=== PATIENT | female | born 1980 | race Caucasian/White ===

== ENCOUNTER 2020-01-13 11:46 | Inpatient (IN) | payer SELFPAY ==
[2020-01-13] VITALS (13 sets, daily range): BP systolic 105–192; BP diastolic 67–109; PULSE 63–82; RESP 16–18; TEMP 36.4–36.6; O2SAT 97–100; BMI 19.2
--- NOTE | 2020-01-13 12:04 | CT_ITS ---
WS: [id number] CT ABDOMEN AND PELVIS WITH CONTRAST HISTORY: RLQ pain TECHNIQUE: Imaging performed of the abdomen and pelvis with IV contrast. Single phase imaging of the abdomen. Coronal and sagittal reformats are submitted. All CT scans at [facility] use at least one of these dose optimization techniques: automated exposure control; mA and/or kV adjustment per patient size (includes targeted exams where dose is matched to clinical indication); or iterativ e reconstruction. IV CONTRAST: Omnipaque 300; 95 mL IV. Oral contrast: No DLP: 580.12 mGy.cm COMPARISON: 03/01/2019 Lower thorax: Lung bases are clear. Heart is normal size. No hiatal hernia. Liver/biliary system: Very slight central bile duct dilatation. No mass. Gallbladder: Prior cholecystectomy. Pancreas: Normal. Spleen: Normal. Adrenal glands: Normal. Right kidney: Normal. Left kidney: Normal. Aorta: Normal. Lymphadenopathy: None. Free fluid: None. GI tract: Mild fluid distention of the proximal small bowel loops measuring up to 3 cm. Mild fecal re tention. The appendix is partially visualized and normal. Abdominal wall: Unremarkable abdominal wall. No hernia. Pelvis: Uterus is midline. No free fluid. Urinary bladder is negative. Minimally prominent RIGHT ingu inal lymph nodes. Bones: Mild anterior wedging of T12. No osteoblastic or osteolytic bone disease. CT/CT abdomen pelvis w con* [id number] IMPRESSION: 1. Mild small bowel dilatation in the LEFT abdomen. 2. Prior cholecystectomy. 3. No evidence for appendicitis or renal obstruction.
--- NOTE | 2020-01-13 12:11 | ED_ITS ---
HPI - Abdominal Pain General: Chief Complaint: Abdominal Pain Stated Complaint: N/V, LOWER ABD PAIN Time Seen by Provider: 01/13/20 11:53 Source: patient and EMS Mode of arrival: EMS Limitations: no limitations History of Present Illness: MD elicited complaint: abdominal pain Pertinent past history: other (type 1 DM) Onset (ago): week(s) (1) Pain Consistency: constant Location: RLQ Severity: severe Quality: stabbing Radiation: none Exacerbating factors: nothing Relieving factors: nothing Associated Symptoms: Reports nausea and vomiting; Denies chills, dysuria and fever(s) Review of Systems General: Reports: 10 or more systems reviewed and unremarkable except in HPI and below Const: Denies: fever(s), chills or body aches Eyes: Denies: change in vision or blurry vision Card: Reports: chest pain; Denies: palpitations, irregular heart rhythm, edema or swelling of feet/ankles Resp: Denies: dyspnea, productive cough or non-productive cough GI: Reports: nausea and vomiting : Denies: flank pain, difficulty voiding, dysuria, urinary frequency, urinary urgency or urinary hesitancy Musc: Denies: neck pain, back pain or extremity swelling Neuro: Denies: headache(s), numbness in extremities or weakness in extremities Endo: Denies: polyuria, polydipsia or tired all the time [facility] ED PFSH: Social History Smoking and tobacco status: former smoker Physical Exam Const: COMMON NORMALS: no acute distress, average body habitus, patient oriented x3, no limitations, healthy appearing, alert and well nourished HENMT: COMMON NORMALS: normocephalic, atraumatic and moist oral mucous membranes HEAD & SCALP: normocephalic and atraumatic Eye: COMMON NORMALS: Equal, round and reactive pupils present, EOMs intact bilaterally, conjunctivae normal and no scleral icterus CONJUNCTIVA: Yes conjunctivae normal PUPIL: Yes Equal, round and reactive pupils present Neck/C-Spine: COMMON NORMALS: no meningeal signs and no JVD Resp: COMMON NORMALS: normal respiratory effort, No retractions, No use of accessory muscles, clear to auscultation bilaterally and percussion normal AUSCULTATION: clear to auscultation bilaterally PERCUSSION: percussion normal Cardio: COMMON NORMALS: no JVD, regular rate, regular rhythm, S1 normal heart sound present, S2 normal heart sound present, No gallops present (Cardio), No clicks present (Cardio), No murmurs present (Cardio), No rub (Cardio) and Peripheral pulses 2+ throughout RATE: regular rate RHYTHM: regular rhythm HEART SOUNDS: S1 normal heart sound present and S2 normal heart sound present PERIPHERAL PULSES: Peripheral pulses 2+ throughout GI: COMMON NORMALS: Normal to inspection, nondistended, normoactive bowel sounds present, Soft to palpation, No hepatosplenomegaly present, no masses and no bruits PALPATION: Yes Soft to palpation, Yes Tenderness to palpation present (GI) Details: RLQ, Yes Guarding due to palpation present (GI) and Yes No hepatosplenomegaly present : COMMON NORMALS: Yes no CVA tenderness BLADDER/KIDNEY EXAM: Yes no CVA tenderness Back/Pelvis: COMMON NORMALS: no CVA tenderness Extremity: COMMON NORMALS: normal to inspection, full ROM, capillary refill normal, no calf tenderness and no pedal edema OTHER: left BKA. ulcer right foot on the plantar surface of the first MTP Neuro: COMMON NORMALS: patient oriented x3 SENSORIUM/ORIENTATION: Yes alert MENINGEAL SIGNS: Yes no meningeal signs Skin: COMMON NORMALS: no rashes or lesions noted, no wounds, turgor normal, no jaundice, no petechiae and no mottling GENERAL SKIN EXAM: no rashes or lesions noted and turgor normal Course Consultations: Consultation #1: Dr. Suarez, hospitalist. She kindly accepted the patient to her service. Consultation #2: Dr. Sin, hris specialist. He will see the patient in the hospital. Vital Signs: Vital signs: Vital Signs Temperature 97.9 F 01/13/20 11:47 Pulse Rate 77 01/13/20 17:53 Respiratory Rate 17 01/13/20 17:53 Blood Pressure 192/109 01/13/20 17:53 Pulse Oximetry 100 01/13/20 17:53 MDM - Abdominal Pain MDM Narrative: Medical decision making narrative: 39-year-old female patient who presents to the emergency department with abdominal pain. Evaluation in the emergency department does not reveal any cause for the abdominal pain. However she is nauseous and is vomiting and has lactic acidosis. She also has a diabe tic foot ulcer which may also be contributing to her lactic acid. Her pain is intractable and she is being admitted to the hospital for further work-up and management. At this time it does not appear that she is in diabetic ketoacidosis as her anion gap is only slightly elevated and her glucose levels just mildly elevated also. But this is certainly a consideration. Medical Records: Attestation: I reviewed the patient's medical records. Lab Data: Attestation: I reviewed the patient's lab results. Labs: Lab Results 01/13/20 01/13/20 01/13/20 Range/Units 10:58 10:58 10:58 WBC 8.8 (4.0-10.0) 10^3/ uL RBC 3.86 L (4.1-5.3) 10^6/u L Hgb 11.5 (11.5-15.3) g/dL Hct 35.9 L (37.0-47.0) % MCV 93.0 (81-99) fL MCH 29.8 (28.0-34.0) pg MCHC 32.0 (30.0-36.0) g/dL RDW 14.0 (12.1-15.1) % Plt Count 526 H (130-400) 10^3/c mm MPV 8.5 (7.4-10.4) fL Neut % (Auto) 70.4 % Lymph % (Auto) 20.0 % Harlan % (Auto) 8.0 % Eos % (Auto) 0.8 % Baso % (Auto) 0.5 % Neut # (Auto) 6.2 (1.8-7.7) 10^3/u L Lymph # (Auto) 1.8 (0.8-4.8) 10^3/u L Harlan # (Auto) 0.7 (0.2-0.9) 10^3/u L Eos # (Auto) 0.1 (0.0-0.8) 10^3/u L Baso # (Auto) 0.0 (0.0-0.1) 10^3/u L Nucleated RBC % (a uto) 0 % Nucleated RBCs # 0.0 /100WBC Sodium 138 (136-145) mmol/L Potassium 3.5 (3.5-5.1) mmol/L Chloride 90 L (98-107) mmol/L Carbon Dioxide 30 H (22-29) mmol/L Anion Gap 21.5 H (5-19) BUN 29 H (6-20) mg/dL Creatinine 2.1 H (0.5-0.9) mg/dL GFR Calculation 26.0 L (90-130) mL/min Glucose 221 H (65-115) mg/dL Calculated Osmolal ity 290 (285-295) mOsm/k g Lactic Acid (Sepsi s) (0.5-2.2) mmol/L Lactate (0.5-2.2) mmol/L Calcium 10.0 (8.5-10.5) mg/dL Total Bilirubin 0.4 (0.15-1.2) mg/dL AST 13 (0-32) U/L ALT 16 (0-33) U/L Alkaline Phosphata se 153 H (35-105) IU/L Creatine Kinase 48 (26-192) U/L C-Reactive Protein 9.0 H (0.0-4.9) mg/L Total Protein 8.5 (6.6-8.7) g/dL Albumin 4.6 (3.5-5.2) g/dL Globulin 3.9 (1.3-4.6) g/dL Lipase 30 (13-60) U/L HCG, Qual (Negative) Urine Color (Yellow) Urine Appearance (CLEAR) Urine pH (5-7) Ur Specific Gravit y (1.005-1.030) Urine Protein (Negative) Urine Glucose (UA) (Normal) Urine Ketones (Negative) Urine Blood (Negative) Urine Nitrate (Negative) Urine Bilirubin (NEGATIVE) Urine Urobilinogen (Negative) mg/dL Ur Leukocyte Estephania ase (Negative) Urine Opiates Scre en (Negative) ng/mL Ur Barbiturates Sc reen (Negative) ng/mL Ur Phencyclidine S crn (Negative) ng/mL Ur Amphetamines Sc reen (Negative) ng/mL U Benzodiazepines Scrn (Negative) ng/mL Urine Cocaine Scre en (Negative) ng/mL U Marijuana (THC) Screen (Negative) ng/mL Ethyl Alcohol < 10 (0-10) mg/dL 01/13/20 01/13/20 01/13/20 Range/Units 12:17 15:36 15:36 WBC (4.0-10.0) 10^3/ uL RBC (4.1-5.3) 10^6/u L Hgb (11.5-15.3) g/dL Hct (37.0-47.0) % MCV (81-99) fL MCH (28.0-34.0) pg MCHC (30.0-36.0) g/dL RDW (12.1-15.1) % Plt Count (130-400) 10^3/c mm MPV (7.4-10.4) fL Neut % (Auto) % Lymph % (Auto) % Harlan % (Auto) % Eos % (Auto) % Baso % (Auto) % Neut # (Auto) (1.8-7.7) 10^3/u L Lymph # (Auto) (0.8-4.8) 10^3/u L Harlan # (Auto) (0.2-0.9) 10^3/u L Eos # (Auto) (0.0-0.8) 10^3/u L Baso # (Auto) (0.0-0.1) 10^3/u L Nucleated RBC % (a uto) % Nucleated RBCs # /100WBC Sodium (136-145) mmol/L Potassium (3.5-5.1) mmol/L Chloride (98-107) mmol/L Carbon Dioxide (22-29) mmol/L Anion Gap (5-19) BUN (6-20) mg/dL Creatinine (0.5-0.9) mg/dL GFR Calculation (90-130) mL/min Glucose (65-115) mg/dL Calculated Osmolal ity (285-295) mOsm/k g Lactic Acid (Sepsi s) (0.5-2.2) mmol/L Lactate 3.2 H (0.5-2.2) mmol/L Calcium (8.5-10.5) mg/dL Total Bilirubin (0.15-1.2) mg/dL AST (0-32) U/L ALT (0-33) U/L Alkaline Phosphata se (35-105) IU/L Creatine Kinase (26-192) U/L C-Reactive Protein (0.0-4.9) mg/L Total Protein (6.6-8.7) g/dL Albumin (3.5-5.2) g/dL Globulin (1.3-4.6) g/dL Lipase (13-60) U/L HCG, Qual Negative (Negative) Urine Color Yellow (Yellow) Urine Appearance Clear (CLEAR) Urine pH 7 (5-7) Ur Specific Gravit y 1.010 (1.005-1.030) Urine Protein Neg (Negative) Urine Glucose (UA) Norm (Normal) Urine Ketones Negative (Negative) Urine Blood Neg (Negative) Urine Nitrate Negative (Negative) Urine Bilirubin Neg (NEGATIVE) Urine Urobilinogen Norm (Negative) mg/dL Ur Leukocyte Estephania ase Negative (Negative) Urine Opiates Scre en (Negative) ng/mL Ur Barbiturates Sc reen (Negative) ng/mL Ur Phencyclidine S crn (Negative) ng/mL Ur Amphetamines Sc reen (Negative) ng/mL U Benzodiazepines Scrn (Negative) ng/mL Urine Cocaine Scre en (Negative) ng/mL U Marijuana (THC) Screen (Negative) ng/mL Ethyl Alcohol (0-10) mg/dL 01/13/20 01/13/20 Range/Units 15:36 15:44 WBC (4.0-10.0) 10^3/ uL RBC (4.1-5.3) 10^6/u L Hgb (11.5-15.3) g/dL Hct (37.0-47.0) % MCV (81-99) fL MCH (28.0-34.0) pg MCHC (30.0-36.0) g/dL RDW (12.1-15.1) % Plt Count (130-400) 10^3/c mm MPV (7.4-10.4) fL Neut % (Auto) % Lymph % (Auto) % Harlan % (Auto) % Eos % (Auto) % Baso % (Auto) % Neut # (Auto) (1.8-7.7) 10^3/u L Lymph # (Auto) (0.8-4.8) 10^3/u L Harlan # (Auto) (0.2-0.9) 10^3/u L Eos # (Auto) (0.0-0.8) 10^3/u L Baso # (Auto) (0.0-0.1) 10^3/u L Nucleated RBC % (a uto) % Nucleated RBCs # /100WBC Sodium (136-145) mmol/L Potassium (3.5-5.1) mmol/L Chloride (98-107) mmol/L Carbon Dioxide (22-29) mmol/L Anion Gap (5-19) BUN (6-20) mg/dL Creatinine (0.5-0.9) mg/dL GFR Calculation (90-130) mL/min Glucose (65-115) mg/dL Calculated Osmolal ity (285-295) mOsm/k g Lactic Acid (Sepsi s) 1.6 (0.5-2.2) mmol/L Lactate (0.5-2.2) mmol/L Calcium (8.5-10.5) mg/dL Total Bilirubin (0.15-1.2) mg/dL AST (0-32) U/L ALT (0-33) U/L Alkaline Phosphata se (35-105) IU/L Creatine Kinase (26-192) U/L C-Reactive Protein (0.0-4.9) mg/L Total Protein (6.6-8.7) g/dL Albumin (3.5-5.2) g/dL Globulin (1.3-4.6) g/dL Lipase (13-60) U/L HCG, Qual (Negative) Urine Color (Yellow) Urine Appearance (CLEAR) Urine pH (5-7) Ur Specific Gravit y (1.005-1.030) Urine Protein (Negative) Urine Glucose (UA) (Normal) Urine Ketones (Negative) Urine Blood (Negative) Urine Nitrate (Negative) Urine Bilirubin (NEGATIVE) Urine Urobilinogen (Negative) mg/dL Ur Leukocyte Estephania ase (Negative) Urine Opiates Scre en Positive H (Negative) ng/mL Ur Barbiturates Sc reen Negative (Negative) ng/mL Ur Phencyclidine S crn Negative (Negative) ng/mL Ur Amphetamines Sc reen Negative (Negative) ng/mL U Benzodiazepines Scrn Negative (Negative) ng/mL Urine Cocaine Scre en Negative (Negative) ng/mL U Marijuana (THC) Screen Negative (Negative) ng/mL Ethyl Alcohol (0-10) mg/dL Imaging Data ^: CT Abd/Pel: Radiologist's impression: [facility] [address] [place] [address] CT Scan Report Signed Patient: Dayan Steel #: [id number] : 1980Acct#:[id number] Age/Sex: 39 / FADM Date: 01/13/20 Loc: ERRoom/Bed: Attending Dr: Ordering Provider/Ordering MD: Nakia Rivera MD, [facility] Date of Service: 01/13/20 Procedure(s): CT abdomen pelvis w con* [id number] Accession Number(s): [id number] Report Number: [id number] WS: [id number] CT ABDOMEN AND PELVIS WITH CONTRAST HISTORY: RLQ pain TECHNIQUE: Imaging performed of the abdomen and pelvis with IV contrast. Single phase imaging of the abdomen. Coronal and sagittal reformats are submitted. All CT scans at [facility] use at least one of these dose optimization techniques: automated exposure control; mA and/or kV adjustment per patient size (includes targeted exams where dose is matched to clinical indication); or iterative reconstruction. IV CONTRAST: Omnipaque 300; 95 mL IV. Oral contrast: No DLP: 580.12 mGy.cm COMPARISON: 03/01/2019 Lower thorax: Lung bases are clear. Heart is normal size. No hiatal hernia. Liver/biliary system: Very slight central bile duct dilatation. No mass. Gallbladder: Prior cholecystectomy. Pancreas: Normal. Spleen: Normal. Adrenal glands: Normal. Right kidney: Normal. Left kidney: Normal. Aorta: Normal. Lymphadenopathy: None. Free fluid: None. GI tract: Mild fluid distention of the proximal small bowel loops measuring up to 3 cm. Mild fecal retention. The appendix is partially visualized and normal. Abdominal wall: Unremarkable abdominal wall. No hernia. Pelvis: Uterus is midline. No free fluid. Urinary bladder is negative. Minimally prominent RIGHT inguinal lymph nodes. Bones: Mild anterior wedging of T12. No osteoblastic or osteolytic bone disease. CT/CT abdomen pelvis w con* [id number] IMPRESSION: 1. Mild small bowel dilatation in the LEFT abdomen. 2. Prior cholecystectomy. 3. No evidence for appendicitis or renal obstruction. Dictated By:Ophelia Escobar DO Signed By:Ophelia Escobar DOSigned Date/Time:01/13/20 1240 Discharge Plan Discharge Patient Disposition: Admitted As Inpatient Clinical Impression: Acidosis, lactic, Intractable abdominal pain, Nausea & vomiting Condition: Stable Prescriptions: No Action gabapentin 400 mg Capsule 400 mg PO TID RF: 0 Plavix 75 mg Tablet 75 mg PO DAILY RF: 0 Aspir-81 81 mg Tablet,Delayed Release (Dr/Ec) 81 mg PO DAILY RF: 0 carvedilol 3.125 mg tablet 3.125 mg PO Q12H RF: 0 Humalog U-100 Insulin 100 unit/mL Solution See Rx Instructions .ROUTE .COMPLEX RF: 0 lisinopril 2.5 mg tablet 2.5 mg PO DAILY RF: 0 Lantus Solostar U-100 Insulin 100 unit/mL (3 mL) Insulin Pen 10 unit SUBCUT BEDTIME RF: 0 Zofran 4 mg Tablet 4 mg PO Q6H PRN (Reason: Nausea) RF: 0 Referrals: Kentrell Herring MD [Primary Care Provider] - 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 Code ED Cloth Laminating Supervisor for Chg Fwd Exam Comprehensive
[2020-01-13 12:13] LABS: Basophils % 0.5 %; Eosinophils # 0.1 10^3/uL (0.0-0.8); Eosinophils % 0.8 %; Hematocrit 35.9 % (37.0-47.0); Hemoglobin 11.5 g/dL (11.5-15.3); Lymphocytes # 1.8 10^3/uL (0.8-4.8); Mean Corpuscular Hemoglobin 29.8 pg (28.0-34.0); Mean Platelet Volume 8.5 fL (7.4-10.4); Monocytes # 0.7 10^3/uL (0.2-0.9); Neutrophils # 6.2 10^3/uL (1.8-7.7); Neutrophils % 70.4 %; Nucleated Red Blood Cells % 0 %; Platelet Count 526 10^3/cmm (130-400); Red Blood Count 3.86 10^6/uL (4.1-5.3); White Blood Count 8.8 10^3/uL (4.0-10.0)
[2020-01-13] MEDS: fentaNYL 50 mcg/mL INJ 2mL IVP ×4 (12:14→18:49)
[2020-01-13] MEDS: iohexol 300 mg/mL 100 mL Btl IV (12:25)
[2020-01-13 12:33] LABS: Alanine Aminotransferase 16 U/L (0-33); Albumin Level 4.6 g/dL (3.5-5.2); Alkaline Phosphatase 153 IU/L (35-105); Anion Gap 21.5 (5-19); Aspartate Amino Transferase 13 U/L (0-32); Blood Urea Nitrogen 29 mg/dL (6-20); Carbon Dioxide 30 mmol/L (22-29); Chloride 90 mmol/L (98-107); Creatine Phosphokinase 48 U/L (26-192); Globulin 3.9 g/dL (1.3-4.6); Glucose 221 mg/dL (65-115); Lipase 30 U/L (13-60); Osmolality Calculated 290 mOsm/kg (285-295); Potassium 3.5 mmol/L (3.5-5.1); Sodium 138 mmol/L (136-145); Total Bilirubin 0.4 mg/dL (0.15-1.2); Total Protein 8.5 g/dL (6.6-8.7)
[2020-01-13 12:36] LABS: Lactate (Lactic Acid level) 3.2 mmol/L (0.5-2.2)
[2020-01-13] MEDS: sodium chloride 0.9% 1,000 ML 999 ML IV ×2 (14:11→16:57)
[2020-01-13] MEDS: metoclopramide 5 mg/mL SDV 2 mL 10 MG IVP (14:31)
[2020-01-13 14:36] LABS: Alcohol Level < 10 mg/dL (0-10)
[2020-01-13 15:40] LABS: Add Urine Microscopic? NO
[2020-01-13 15:47] LABS: Blood Urine Neg (Negative); Glucose Urine UA Norm (Normal); HCG Qualitative Urine. Negative (Negative); Ketones Urine Negative (Negative); Protein Urine Neg (Negative); Urine Appearance Clear (CLEAR); Urine Color Yellow (Yellow); pH Urine 7 (5-7)
[2020-01-13 15:48] LABS: Bilirubin Urine Neg (NEGATIVE); Leukocyte Esterase Urine Negative (Negative); Nitrate Urine Negative (Negative); Urobilinogen Urine Norm (Negative)
[2020-01-13 15:55] LABS: Amphetamines Screen Urine Negative (Negative); Barbiturates Screen Urine Negative (Negative); Benzodiazepines Screen Urine Negative (Negative); Cocaine Screen Urine Negative (Negative); Opiate Screen Urine Positive (Negative); PCP Screen Urine Negative (Negative); THC Screen Urine Negative (Negative)
--- NOTE | 2020-01-13 16:19 | US_ITS ---
WS: [id number] TRANSVAGINAL PELVIC ULTRASOUND HISTORY: RLQ pain, nausea and vomiting COMPARISON: None available. Uterus: 5.8 cm x 3.3 cm x 2.5 cm. Anteverted uterus is normal size. No fibroid or mass. Small nabothi an cysts. Endometrium: 0.6 cm. Normal homogeneity. Right ovary: 2.1 cm x 2.1 cm x 1.3 cm. Normal size ovary. There is a small follicle associated with t he RIGHT ovary with a maximum diameter of 1.4 cm. Normal ovary and vascularity. Left ovary: LEFT ovary is not visualized. No adnexal mass. No free fluid. US/US transvaginal [id number] IMPRESSION: 1. LEFT ovary is not identified. 2. Otherwise negative.
[2020-01-13 16:23] LABS: Lactic Acid level (Lactate) 1.6 mmol/L (0.5-2.2)
--- NOTE | 2020-01-13 17:04 | XR_ITS ---
WS: [id number] RIGHT FOOT: 3 VIEW(S) TECHNIQUE: AP, oblique and lateral. HISTORY: R foot ulcer COMPARISON: None available. Prior amputation of nearly the entire first toe. There is a small component of the proximal phalanx r emaining. Distal to the amputation site is a large amount soft tissue ulceration measuring 15 mm. Thi s ulceration does extend to abut the amputated fragment. There is additional destructive bone changes involving the distal second toe with soft tissue edema. Degenerative changes in the midfoot. Vascular calcifications. XR/XR foot RT min 3V* [id number] IMPRESSION: 1. Amputation of nearly the entire first toe with overlying soft tissue ulcera tion and edema but no definite osteomyelitis. 2. Abnormal distal second toe may be chronic osteomyelitis but there is also s oft tissue edema. 3. Peripheral arterial disease.
--- NOTE | 2020-01-13 17:12 | P.HP_ITS ---
Providers/Chief Complaint Admitting Physician: Lmaar Suarez MD Primary Care Provider: Kentrell Herring MD Chief Complaint: N/V, LOWER ABD PAIN History of Present Illness Cherrie Steel is a 39 year old female with PMHx of DM type I associated with nephropathy, gastroparesis and neuropathy, s/p L BKA, HTN, CAD s/p stenting; presents via ambulance from home for evaluation of ongoing significant right lower quadrant abdominal pain, nausea/vomiting for the past several days. She reports being seen at [facility] earlier this week for the same symptoms. She has been seen at our facility multiple times primarily last year secondary to the same with symptoms attributed to severe diabetic gastroparesis. Due to her symptoms she has been unable to take her medications regularly since Saturday. She reports not having a PCP so takes insulin which she buys [id number], with regimen that consists of 10 units of Lantus and sliding scale. Her blood sugar is typically below 150 but earlier today she noted it to be about 206 which is high for her. She denies any fever/chills, exposure to unknown food or drink, urinary symptoms, diarrhea, shortness of breath, chest pain. She reports unintentional weight loss of about 100 pounds in the past year and has had some lightheadedness but denies any falls or syncope. During transport she received 100 mcg of fentanyl, 4 mg of Zofran and some IV fluids. Her blood sugar was 208 and vital signs were within normal limits. Work-up in the ER on her arrival shows a normal CBC including white count of 8.8, BUN of 29, creatinine of 2.1, blood sugar of 221, anion gap of 21.5, lactic acid of 3.2, CRP of 8.0, unremarkable LFTs except for ALP elevation at 153, negative UA, urine drug screen positive for opiates likely secondary to medication already administered. CT of the abdomen and pelvis was done which is unremarkable for any acute intra-abdominal abnormality. She has received 1 L normal saline bolus, Zofran and additional fentanyl. She reports being sexually active with her of over 20 yrs only, LMP-07/2018, denies vaginal discharge. She has had x 3, ex-lap x 3, PEG-tube placement, cholecystectomy. She is being admitted for continued IV hydration, pain control, management of R diabetic foot ulcer. I have requested Podiatry evaluation for diabetic foot ulcer. Review of Systems Const: Reports: change in appetite (decreased appetite), change in weight (100 lb weight loss in 1 year) and fatigue; Denies: fever(s) or chills Eyes: Denies: change in vision ENMT: Reports: dry mouth; Denies: odynophagia Card: Denies: chest pain, edema, swelling of feet/ankles, lightheadedness or syncope Resp: Denies: dyspnea, productive cough or non-productive cough GI: Reports: abdominal pain, nausea and vomiting (NBNB); Denies: hematemesis or hematochezia : Denies: difficulty voiding, dysuria, urinary frequency or hematuria Musc: Denies: back pain Skin/Breast: Denies: rash Neuro: Denies: numbness in extremities or weakness in extremities Psych: Denies: anxiety Medications/Allergies Home Medications Medication Instructions Recorded Confirmed Last Taken Type aspirin [Aspir-81] 81 mg PO DAILY 01/13/20 01/13/20 Unknown History carvedilol 3.125 mg PO Q12H 01/13/20 01/13/20 Unknown History clopidogrel [Plavix] 75 mg PO DAILY 01/13/20 01/13/20 Unknown History gabapentin 400 mg PO TID 01/13/20 01/13/20 Unknown History insulin glargine [Lantus Solostar 10 unit SUBCUT BEDTIME 01/13/20 01/13/20 Unkn own History U-100 Insulin] insulin lispro [Humalog U-100 See Rx Instructions .ROUTE .COMPLEX 01/13/20 01/13/20 Unknown History Insulin] lisinopril 2.5 mg PO DAILY 01/13/20 01/13/20 Unknown History ondansetron HCl [Zofran] 4 mg PO Q6H PRN 01/13/20 01/13/20 01/13/20 History Allergies Allergy/AdvReac Type Severity Reaction Status Date / Time morphine Allergy ALGY-Difficulty Verified 01/13/20 11:53 Breathing PFSH Acute PFSH: Medical History (Updated 01/13/20 @ 18:54 by Lamar Suarez MD) CKD (chronic kidney disease) stage 2, GFR 60-89 ml/min Coronary artery disease Diabetes mellitus type 1 Diabetic gastroparesis Hyperlipidemia Surgical History (Updated 01/13/20 @ 18:54 by Lamar Suarez MD) Below-knee amputation of left lower extremity H/O exploratory laparotomy x 3 Previous section x 3 S/P coronary artery stent placement x 1 S/P percutaneous endoscopic gastrostomy (PEG) tube placement Family History (Updated 01/13/20 @ 18:40 by Lamar Suarez MD) Unknown Diabetes extensive, type II Other CHF (congestive heart failure) Social History (Updated 01/13/20 @ 18:41 by Lamar Suarez MD) Smoking and tobacco status: former smoker Quit status (tobacco): has quit using tobacco Former quit date comment: 15 yrs ago Alcohol intake: former Former alcohol use details: 15 yrs ago Substance/Drug Use: never Household members: spouse Marital status: Sexually active: Yes (1, ) Vitals/I&O/Wt Last Vital Signs Temp 97.9 F 01/13/20 11:47 Pulse 82 01/13/20 16:57 Resp 16 01/13/20 16:57 BP 173/107 01/13/20 16:57 Pulse Ox 100 01/13/20 16:57 Weight last 48 hrs Weight 58.967 kg Physical Exam Const: COMMON NORMALS: no acute distress, patient oriented x3 and alert GENERAL APPEARANCE: cooperative, comfortable, in distress and appears older than stated age ORIENTATION/CONSCIOUSNESS: Yes awake HENMT: COMMON NORMALS: normocephalic, atraumatic, hearing grossly normal bilaterally and moist oral mucous membranes HEAD & SCALP: normocephalic and atraumatic Eye: COMMON NORMALS: Equal, round and reactive pupils present, EOMs intact bilaterally and conjunctivae normal CONJUNCTIVA: Yes conjunctivae normal PUPIL: Yes Equal, round and reactive pupils present Neck/C-Spine: COMMON NORMALS: full ROM GENERAL: Yes normal visual inspection and Yes trachea midline Chest: CHEST: Yes Symmetrical chest wall rise Resp: COMMON NORMALS: normal respiratory effort, No retractions, No use of accessory muscles and clear to auscultation bilaterally EFFORT & INSPECTION: Yes able to speak in complete sentences, Yes symmetric chest movement and No tachypneic AUSCULTATION: clear to auscultation bilaterally OTHER: -on RA Cardio: COMMON NORMALS: regular rate, regular rhythm, S1 normal heart sound present, S2 normal heart sound present and No murmurs present (Cardio) RATE: regular rate RHYTHM: regular rhythm HEART SOUNDS: S1 normal heart sound present and S2 normal heart sound present GI: COMMON NORMALS: Normal to inspection, nondistended, normoactive bowel sounds present and Soft to palpation INSPECTION: Yes scar (vertical, crossing umbilicus) PALPATION: Yes Soft to palpation, Yes Tenderness to palpation present (GI) Details: RLQ, No Guarding due to palpation present (GI) and No R igid due to palpation Extremity: NARRATIVE EXTREMITY EXAM: -s/p L BKA -RLE: noted callus on dorsum of R forefoot below great toe area with ulcer draining purulent material; callus on second toe. Peripheral pulses palpable Neuro: COMMON NORMALS: patient oriented x3, moves all extremities, no focal motor deficits and no sensory deficits noted SENSORIUM/ORIENTATION: Yes alert GAIT: Yes Other gait observations present (L BKA) Psych: COMMON NORMALS: mental status grossly normal, Normal thought process present, cooperative and speech normal SPEECH: Yes normal speech MOOD & AFFECT: Yes Flat affect present THOUGHT PROCESS: Normal thought process present Skin: COMMON NORMALS: no jaundice, no petechiae and no mottling NARRATIVE SKIN EXAM: -R diabetic foot ulcer GENERAL SKIN EXAM: no rashes or lesions noted Data : 01/13/20 10:58 01/13/20 10:58 A&P Assessment and plan (1) Intractable abdominal pain: -Presents with ongoing right lower quadrant pain which has been noted on previous visits to the hospital per review of old [facility] records. Was recently seen at the ER in [place] for the same symptoms -Has been attributed to gastroparesis secondary to DM type I -Associated nausea/vomiting -No acute intra-abdominal abnormality noted on imaging -Requested pelvic ultrasound; LMP-07/2018 -Pain control, antiemetics as needed, clear liquid diet for now -IVF hydration Status: Acute (2) Nausea & vomiting: -as noted above Status: Acute Qualifiers: Vomiting Intractability: unspecified Vomiting type: unspecified Qualified Code(s): R11.2 - Nausea with vomiting, unspecified (3) Diabetic gastroparesis: -secondary to DM type I Status: Chronic (4) Acidosis, lactic: -likely secondary to dehydration and R diabetic foot ulcer -IVF hydration -management of R diabetic foot ulcer as noted Status: Acute (5) Diabetic foot ulcer: -noted on exam -Podiatry consulted -arterial studies ordered, noted elevated inflammatory markers (CRP-8.0,ESR-62, thrombocytosis) -empiric IV antibiotics (Zosyn) Status: Acute Qualifiers: Diabetic foot ulcer location: other Diabetes mellitus type: type 1 Laterality: right Non-pressure ulcer stage: unspecified non-pressure ulcer stage Qualified Code(s): E10.621 - Type 1 diabetes mellitus with foot ulcer; L97.519 - Non-pressure chronic ulcer of other part of right foot with unspecified severity (6) Coronary artery disease: -hx of CAD s/p stenting -on ASA, Plavix -not on statin Status: Chronic Qualifiers: Coronary Disease-Associated Artery/Lesion type: [place] artery [place] vs. transplanted heart: [place] heart Associated angina: without angina Qualified Code(s): I25.10 - Atherosclerotic heart disease of [place] coronary artery without angina pectoris (7) Diabetes mellitus type 1: -noted hx of DM type I complicated by nephropathy and neuropathy -check A1c -Accuchecks, ISS, hypoglycemia precautions -hyperglycemia without DKA Status: Chronic Qualifiers: Diabetes mellitus complication status: with other specified complication Qualified Code(s): E10.69 - Type 1 diabetes mellitus with other specified complication (8) CKD (chronic kidney disease) stage 2, GFR 60-89 ml/min: -secondary to diabetic nephropathy -baseline Cr is around 1.0 -has FIONA superimposed on CKD likely due to dehydration -monitor renal function, avoid nephrotoxins, renally dose meds -on IVF hydration Status: Chronic (9) Below-knee amputation of left lower extremity: -fall precautions Status: Chronic (10) Hyperlipidemia: Status: Chronic Qualifiers: Hyperlipidemia type: unspecified Qualified Code(s): E78.5 - Hyperlipidemia, unspecified Additional A&P Information -GI ppx with PPI -DVT ppx with heparin -Dispo: home -Code status: FULL code Attestations Medical Necessity Statement*: Cherrie Steel's hospital stay will require greater than 2 midnights for management of intractable abdominal pain with nausea vomiting, dehydration, noted right diabetic foot ulcer, needs appropriate pain control, IV fluid hydration and IV antibiotics. Time Spent in Patient Care: Greater than 35 minutes (>than 50% of time spent in counselling and/or direct pt care on unit) . 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 Code Acute Community Facilitator for Chg Fwd Diagnoses Intractable abdominal pain R10.9 Nausea & vomiting R11.2 Vomiting Intractability: unspecified Vomiting type: unspecified Diabetic gastroparesis E11.43; K31.84 Acidosis, lactic E87.2 Diabetic foot ulcer E10.621; L97.519 Diabetic foot ulcer location: other Diabetes mellitus type: type 1 Laterality: right Non-pressure ulcer stage: unspecified non-pressure ulcer stage Coronary artery disease I25.10 Coronary Disease-Associated Artery/Lesion type: [place] artery [place] vs. transplanted heart: [place] heart Associated angina: without angina Diabetes mellitus type 1 E10.69 Diabetes mellitus complication status: with other specified complication CKD (chronic kidney disease) stage 2, GFR 60-89 ml/min N18.2 Below-knee amputation of left lower extremity S88.112A Hyperlipidemia E78.5 Hyperlipidemia type: unspecified
[2020-01-13] MEDS: ondansetron 2 mg/ML SDV 2 mL 4 MG IVP ×2 (17:48→21:13)
[2020-01-13 18:45] LABS: Erythrocyte Sedimentation Rate 62 mm/hr (0-15)
--- NOTE | 2020-01-13 18:53 | PC.NURSE ---
Report called by Lissett WOOD to this sba underwriter at this time. Patient has had Nausea, Vomiting, and lower Abdominal pain since last . Patient was seen at the [facility] ER on Saturday and given pain medications but continued to feel sick. Patient is a Type 1 diabetic. Patient has a 20 gauge IV in the right forearm. Patient is a Left BK amputee. Patient has had her right great toe removed which has an ulcer on it and her second toe on the right foot has an ulcer as well. Lissett WOOD states she flushed them with NS and placed a Telfa on them per Dr. Suarez's order. Patient received 2 liters of normal saline 200 mcg of Fentanyl 4 mgs of Zofran 10mgs of Reglan Patient's last blood pressure was 135/91 HR 72 Repirations 18 100% on room air.
--- NOTE | 2020-01-13 20:10 | P.CONIM_ITS ---
Providers/Reason For Consult Consulting Physican/Specialty*: Rafael Sin D.P.M. Reason for Consult*: Diabetic foot infection right foot Attending Physician: Lamar Suarez MD Primary Care Provider: Kentrell Herring MD History of Present Illness History of Present Illness Cherrie Steel is a 39 year old type I diabetic female presented to the emergency department with abdominal pain. Podiatry consulted for right foot wound. Patient reports of history of left below the knee amputation performed at [facility] in [place] July 2019. Patient reports a history of right partial hallux amputation May 2019 also at [facility] in [place]. She reports a bone debridement and partial amputation of the right second toe, distal tip performed at the [facility] August 2019. She states that the current wound under her first metatarsal right foot started out as a callus, then formed into a blister and progressed to the wound this started in August 2019. She has been performing at home dressing changes and self-directed wound care. Patient denies any subjective nausea, vomiting, fever, chills, shortness of breath or chest pain. She has been trying to get insurance, does not have a prosthesis to her left lower extremity at this time due to lack of insurance, her 's name is Luis A they live in couple she has 4 daughters. She has been purchasing [id number] medications to help control her diabetes states that her blood glucose has been averaging approximately 150 on a daily basis. Review of Systems General: Reports: 10 or more systems reviewed and unremarkable except in HPI and below Const: Denies: fever(s) or chills Card: Denies: chest pain or palpitations Resp: Denies: productive cough GI: Denies: abdominal pain, nausea or vomiting : Denies: flank pain Musc: Reports: extremity swelling, joint pain, joint stiffness, limited range of motion and deformity Skin/Breast: Reports: nail changes and change in hair; Denies: rash or sores Neuro: Reports: numbness in extremities, sensory changes and difficulty walking Psych: Denies: suicidal ideation Keith/Lymph: Denies: easy bruising Meds/Allergies Home Medications and Allergies Home Medications Medication Instructions Recorded Confirmed Last Taken Type aspirin [Aspir-81] 81 mg PO DAILY 01/13/20 01/13/20 Unknown History carvedilol 3.125 mg PO Q12H 01/13/20 01/13/20 Unknown History clopidogrel [Plavix] 75 mg PO DAILY 01/13/20 01/13/20 Unknown History gabapentin 400 mg PO TID 01/13/20 01/13/20 Unknown History insulin glargine [Lantus Solostar 10 unit SUBCUT BEDTIME 01/13/20 01/13/20 Unknown History U-100 Insulin] insulin lispro [Humalog U-100 See Rx Instructions .ROUTE .COMPLEX 01/13/20 01/13/20 Unknown History Insulin] lisinopril 2.5 mg PO DAILY 01/13/20 01/13/20 Unknown History ondansetron HCl [Zofran] 4 mg PO Q6H PRN 01/13/20 01/13/20 01/13/20 History Allergies Allergy/AdvReac Type Severity Reaction Status Date / Time morphine Allergy ALGY-Difficulty Verified 01/13/20 11:53 Breathing PFSH Acute PFSH: Medical History (Updated 01/13/20 @ 20:17 by Rafael Sin DPM) CKD (chronic kidney disease) stage 2, GFR 60-89 ml/min Coronary artery disease Diabetes mellitus type 1 Diabetic gastroparesis Hyperlipidemia Surgical History (Updated 01/13/20 @ 18:54 by Lamar Suarez MD) Below-knee amputation of left lower extremity H/O exploratory laparotomy x 3 Previous section x 3 S/P coronary artery stent placement x 1 S/P percutaneous endoscopic gastrostomy (PEG) tube placement Family History (Updated 01/13/20 @ 18:40 by Lamar Suarez MD) Unknown Diabetes extensive, type II Other CHF (congestive heart failure) Social History (Updated 01/13/20 @ 18:41 by Lamar Suarez MD) Smoking and tobacco status: former smoker Quit status (tobacco): has quit using tobacco Former quit date comment: 15 yrs ago Alcohol intake: former Former alcohol use details: 15 yrs ago Substance/Drug Use: never Household members: spouse Marital status: Sexually active: Yes (1, ) Vitals/I&O/Wt Last Vital Signs Temp 97.9 F 01/13/20 11:47 Pulse 70 01/13/20 18:50 Resp 16 01/13/20 18:50 BP 135/91 01/13/20 18:50 Pulse Ox 99 01/13/20 18:50 01/13/20 01/13/2020 06:59 14:59 22:59 Intake Total 1999 Balance 1999 Weight last 48 hrs Weight 130 lb Physical Exam Narrative: EXAM NARRATIVE: GENERAL: Patient is alert and oriented ?3 and in no acute distress. The following is a focused right lower extremity exam. VASCULAR: Dorsalis pedis and posterior tibial arteries palpable +2. Capillary refill time less than 3 seconds to the distal remaining toes right foot. Calf is supple and nontender proximally and distally. Some pedal hair growth is p resent. Focal edema at the right second toe distally. NEUROLOGICAL: Protective sensation intact 0/10 sites, tested with Tonica Michaela monofilament to bilateral feet. DERMATOLOGICAL: Full-thickness wound sub-first metatarsal head probes to sesamoids has spongy base largely fibrotic with hyperkeratotic rim has significant devitalized subcutaneous tissue there is no shelbi purulence, no malodor no periwound erythema or proximal lymphangitic streaking noted. Small sinus tract at the distal tuft of the right second toe probes to bone this is a small wound measuring 3 mm x 3 mm x 4 mm deep, no periwound erythema warmth or drainage, no malodor, no proximal lymphangitic streaking from this wound. MUSCULOSKELETAL: Status post left below knee amputation. Status post partial right hallux amputation. Reducible hammertoe deformities 2 through 5 right foot. Ankle joint dorsiflexion 5 degrees beyond neutral. Muscle strength 5 out of 5 in all 3 cardinal planes to the right foot and ankle. 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 Recommending MRI to evaluate extent of bony involvement for surgical planning. Patient is open to partial right second toe amputation as well as excision of proximal phalanx base of the right hallux and sesamoids if needed. Wound was sharply debrided bedside patient tolerated well area was flushed with saline solution followed by wound cultures taken both aerobic and anaerobic for Gram stain and culture. Patient will begin empiric IV antibiotics. Dry sterile dressing applied. On x-ray I do appreciate a cortical irregularity at the plantar aspect of the remaining proximal phalanx suspicious for osteomyelitis, also chronic appearing lytic changes to the distal tuft of the right second toe distal phalanx consistent with osteomyelitis. Will await MRI findings however planning on surgical intervention tentatively Saturday. Consult Attestations Medical Necessity Statement: Osteomyelitis right foot 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 Code Acute Side Seam Tender for [facility] Fwd Diagnoses Diabetes mellitus type 1 E10.69 Diabetes mellitus complication status: with other specified complication Non-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 L97.514
[2020-01-13 21:06] LABS: Glucose Point of Care 110 mg/dL (70-110)
[2020-01-13] MEDS: piperacillin-tazobactam 3.375 GM in sodium chloride 0.9% (plus) 50 ML IV (21:06)
[2020-01-13] MEDS: heparin 5,000 unit/mL INJ 1 mL 5000 UNIT SUBCUT (21:06)
[2020-01-13] MEDS: pantoprazole 40 mg SDV IVP (21:06)
[2020-01-13] MEDS: D5-NS 0.45% + KCL 20 mEq 20 MEQ/1,000 ML BAG 100 MEQ IV (21:07)
[2020-01-13] MEDS: gabapentin 400 mg Capsule PO (21:07)
[2020-01-13] MEDS: carvedilol 3.125 mg Tablet PO (21:07)
[2020-01-13] MEDS: oxyCODONE-APAP 10-325 mg Tablet 1 TAB PO (21:11)
[2020-01-14] VITALS (11 sets, daily range): BP systolic 90–131; BP diastolic 53–80; PULSE 55–62; RESP 14–18; TEMP 36.3–36.9; O2SAT 99–100
[2020-01-14] MEDS: piperacillin-tazobactam 3.375 GM in sodium chloride 0.9% (plus) 50 ML IV ×3 (03:29→19:16)
[2020-01-14] MEDS: ondansetron 2 mg/ML SDV 2 mL 4 MG IVP ×2 (05:19→11:11)
[2020-01-14] MEDS: oxyCODONE-APAP 10-325 mg Tablet 1 TAB PO ×4 (05:19→21:50)
[2020-01-14 05:47] LABS: Basophils % 0.8 %; Eosinophils # 0.1 10^3/uL (0.0-0.8); Eosinophils % 2.9 %; Hematocrit 31.7 % (37.0-47.0); Hemoglobin 10.3 g/dL (11.5-15.3); Lymphocytes # 1.9 10^3/uL (0.8-4.8); Lymphocytes % 40.5 %; Mean Corpuscular HGB Conc 32.5 g/dL (30.0-36.0); Mean Corpuscular Volume 92.4 fL (81-99); Mean Platelet Volume 8.5 fL (7.4-10.4); Monocytes # 0.4 10^3/uL (0.2-0.9); Monocytes % 8.8 %; Neutrophils # 2.2 10^3/uL (1.8-7.7); Neutrophils % 46.8 %; Nucleated Red Blood Cells % 0 %; Platelet Count 326 10^3/cmm (130-400); Red Blood Count 3.43 10^6/uL (4.1-5.3); Red Cell Distribution Width 13.5 % (12.1-15.1); White Blood Count 4.8 10^3/uL (4.0-10.0)
--- NOTE | 2020-01-14 06:00 | USCV_ITS ---
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
[2020-01-14 06:02] LABS: Alanine Aminotransferase 13 U/L (0-33); Albumin Level 3.6 g/dL (3.5-5.2); Alkaline Phosphatase 130 IU/L (35-105); Anion Gap 15.3 (5-19); Aspartate Amino Transferase 17 U/L (0-32); Blood Urea Nitrogen 20 mg/dL (6-20); Calcium 9.1 mg/dL (8.5-10.5); Carbon Dioxide 28 mmol/L (22-29); Chloride 99 mmol/L (98-107); Globulin 2.6 g/dL (1.3-4.6); Glomerular Filtration Rate 45.1 mL/min (90-130); Glucose 142 mg/dL (65-115); Osmolality Calculated 285 mOsm/kg (285-295); Potassium 4.3 mmol/L (3.5-5.1); Sodium 138 mmol/L (136-145); Total Bilirubin 0.3 mg/dL (0.15-1.2); Total Protein 6.2 g/dL (6.6-8.7)
[2020-01-14 06:33] LABS: Glucose Point of Care 175 mg/dL (70-110)
[2020-01-14 06:41] LABS: Estmated Average Glucose 169; Hemoglobin A1C 7.5 % (4.0-6.0)
--- NOTE | 2020-01-14 07:51 | P.PN_ITS ---
Subjective Subjective: Interval history: Patient denies any acute events overnight, has some tenderness to her right foot area of debridement. Is tolerating regular diet at this time. Patient denies any subjective nausea, vomiting, fever, chills, shortness of breath or chest pain. Scheduled for MRI of right foot today Vitals/I&O/Wt Last Vital Signs Temp 97.9 F 01/14/20 07:11 Pulse 61 01/14/20 07:11 Resp 15 01/14/20 07:11 BP 108/71 01/14/20 07:11 Pulse Ox 99 01/14/20 07:11 01/13/20 01/14/20 01/14/20 22:59 06:59 14:59 Intake Total 1999 50 / 2050 Output Total 350 / 350 Balance 1999 -300 / 1700 Weight last 48 hrs Weight 130 lb Physical Exam Narrative: EXAM NARRATIVE: GENERAL: Patient is alert and oriented ?3 and in no acute distress. The following is a focused right lower extremity exam. VASCULAR: Dorsalis pedis and posterior tibial arteries palpable +2. Capillary refill time less than 3 seconds to the distal remaining toes right foot. Calf is supple and nontender proximally and distally. Some pedal hair growth is present. Focal edema at the right second toe distally. NEUROLOGICAL: Protective sensation intact 0/10 sites, tested with Timbo Michaela monofilament to bilateral feet. DERMATOLOGICAL: Full-thickness wound sub-first metatarsal head probes to sesamoids has spongy base largely fibrotic with hyperkeratotic rim has significant devitalized subcutaneous tissue there is no shelbi purulence, no malodor no periwound erythema or proximal lymphangitic streaking noted. Small sinus tract at the distal tuft of the right second toe probes to bone this is a small wound measuring 3 mm x 3 mm x 4 mm deep, no periwound erythema warmth or drainage, no malodor, no proximal lymphangitic streaking from this wound. MUSCULOSKELETAL: Status post left below knee amputation. Status post partial right hallux amputation. Reducible hammertoe deformities 2 through 5 right foot. Ankle joint dorsiflexion 5 degrees beyond neutral. Muscle strength 5 out of 5 in all 3 cardinal planes to the right foot and ankle. Data : 01/14/20 05:20 01/14/20 05:20 Micro: Microbiology 01/13/20 17:50 Blood Culture - Preliminary Blood SPECIMEN COLLECTED 01/13/20 17:50 Blood Culture - Preliminary Blood SPECIMEN COLLECTED A&P Additional A&P Information Diabetic foot ulcer exposed bone right foot, clinically stable no leukocytosis, patient is afebrile, ESR 62, CRP 8.0, albumin 3.6. [facility] can appreciate some cortical irregularities and erosive changes at the plantar base of the proximal phalanx right hallux consistent with osteomyelitis. No foreign body no soft tissue emphysema appreciated. Planning for MRI today, no contrast due to renal impairment. Planning on surgical debridement on Saturday morning. Will discuss MRI findings later today once available with patient and formulate treatment plan. Attestations Medical Necessity Statement*: Diabetic foot infection right foot 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 Code Acute Bobbin Winder for Kim Mitchell
[2020-01-14] MEDS: heparin 5,000 unit/mL INJ 1 mL 5000 UNIT SUBCUT (08:26)
[2020-01-14] MEDS: pantoprazole 40 mg SDV IVP ×2 (08:26→19:16)
[2020-01-14] MEDS: carvedilol 3.125 mg Tablet PO ×2 (08:26→19:21)
[2020-01-14] MEDS: aspirin 81 mg EC Tablet PO (08:26)
[2020-01-14] MEDS: gabapentin 400 mg Capsule PO ×2 (08:27→19:21)
[2020-01-14 11:02] LABS: Glucose Point of Care 157 mg/dL (70-110)
--- NOTE | 2020-01-14 11:23 | PC.CHAP ---
Pastoral Care Encounter/Spiritual Assessment Type of Contact [] Declined gaming floor supervisor visit [] Patient/Family/Request visit [] Outpatient visit [] Follow-up visit [] Physician referral [] Code/Alert [x] Routine visit [] Staff referral [] Actively dying [] Patient sleeping [] Family support [] [] Out of room [] Palliative care [] [] Receiving care in room [] Pre-surgical visit [] Trauma [] Long length of stay [] ICU visit [] Other: Relational/Emotional Strength [x] Patient feels connected with others/family/visitors/staff [] Distress [] Loneliness/isolation [] Abandonment Spirituality of Patient [x] Person of Vanessa [x] Attends Religion of their Vanessa [x] Believes in Prayer [x] Reads Bible or Christian materials [] There are Spiritual issues to be addressed Dynamometer Mechanic Interventions [x] Prayer [x] Active listening [x] Non-anxious presence [x] Spiritual/emotional support [] Crisis/trauma care [] Spiritual counseling [] Bereavement support [] Provided bereavement packet [] Provided Bible/devotional materials [] Provided toy/stuffed animal, coloring book to patient or family member [] Provided Communion [] Anointing/[place] [] Salvation [x] Completed spiritual assessment [] Other: Impact on Illness or Injury [] Angry [] Fearful [] Anxious [] Often cries [] Exhaustion [] Unable to work [] Unable to attend restorationist [] Unable to walk/stand [] Unable to read [] Unable to drive [] Unable to eat/drink [] Unable to sleep [] Unable to be with family [] Patient intubated [] Other: Summary Patient is strong in her vanessa and commitment to Saul. Time spent with patient 10 minutes
--- NOTE | 2020-01-14 11:30 | PC.NURSE ---
MRI screening sheet completed at this time.
[2020-01-14] MEDS: D5-NS 0.45% + KCL 20 mEq 20 MEQ/1,000 ML BAG 100 MEQ IV (13:24)
--- NOTE | 2020-01-14 14:15 | PC.NURSE ---
Patient to MRI at this time by wheel chair at this time.
--- NOTE | 2020-01-14 14:16 | P.PN_ITS ---
Subjective Subjective: Interval history: Afebrile, hemodynamically stable, improvement in renal function, stable hemoglobin, reviewed Accu-Cheks. MRI pending. Seen earlier this morning with Dr. Sin with dressing change done at bedside. She reports feeling much better particularly in terms of nausea and abdominal pain both of which have significantly decreased, is requesting solid food for breakfast. She has already tolerated a sandwich. Medications: Reviewed: Yes Medication Review Details: Active Medications Generic Name Dose Route Start Last Admin Trade Name Freq PRN Reason Stop Dose Admin Acetaminophen 650 mg 01/13/20 19:15 Tylenol PO Q6H PRN Mild/Mod Pain Or Temp >/= 101 Aspirin 81 mg 01/14/20 09:00 01/14/20 08:26 Aspirin Ec PO 81 mg DAILY DAWSON Administration Carvedilol 3.125 mg 01/13/20 19:15 01/14/20 08:26 Coreg PO 3.125 mg Q12H DAWSON Administration Dextrose 25 ml 01/13/20 19:15 D50w IVP ONCE PRN hypoglycemia prot ocol Protocol Dextrose 50 ml 01/13/20 19:15 D50w IVP PRN PRN hypoglycemia prot ocol Protocol Gabapentin 400 mg 01/13/20 21:00 01/14/20 08:27 Neurontin PO 400 mg TID DAWSON Administration Glucagon 1 mg 01/13/20 19:15 Glucagen IM ONCE PRN Adult Acute Hypog lycemia Prot. Protocol Heparin Sodium (Be ef Lung) 5,000 unit 01/13/20 19:30 01/14/20 08:26 Heparin SUBCUT 5,000 unit Q12H DAWSON Administration Hydralazine HCl 10 mg 01/13/20 19:15 Apresoline IVP Q4H PRN SYSTOLIC BLOOD MA ESSURE Hydromorphone HCl 2 mg 01/13/20 19:15 Dilaudid Tab PO Q6H PRN SEVERE PAIN Potassium Chloride /Dextrose/Sod Cl 20 meq in 1,000 m ls @ 100 mls/hr 01/13/20 19:30 01/14/20 13:24 D5-Ns 0.45% + Scottie l 20 Meq IV 100 mls/hr .Q10H DAWSON Administration Piperacillin Sod/T azobactam 50 mls @ 12.5 mls /hr 01/13/20 20:00 01/14/20 11:13 Sod 3.375 gm/ So dium Chloride IV 12.5 mls/hr Q8H DAWSON Administration Protocol Dextrose 500 mls @ 100 mls /hr 01/13/20 19:15 D5w IV ONCE PRN Adult Acute Hypog lycemia Prot Protocol Insulin Aspart 0 unit 01/13/20 19:15 01/14/20 13:24 Novolog SUBCUT Not Given WM&BEDTIME DAWSON Protocol Insulin Glargine 10 unit 01/13/20 21:00 01/13/20 21:20 Lantus SUBCUT Not Given BEDTIME DAWSON Ondansetron HCl 4 mg 01/13/20 21:02 01/14/20 11:11 Zofran IVP 4 mg Q6H PRN Administration NAUSEA AND VOMITI NG Oxycodone/Acetamin ophen 1 tab 01/13/20 19:15 Percocet 5-325 M g PO Q4H PRN MODERATE PAIN Oxycodone/Acetamin ophen 1 tab 01/13/20 20:53 01/14/20 13:36 Percocet 10-325 Mg PO 1 tab Q4H PRN Administration MODERATE PAIN Pantoprazole Sodiu m 40 mg 01/13/20 19:15 01/14/20 08:26 Protonix IVP 40 mg Q12H DAWSON Administration morphine Allergy (Verified 01/13/20 11:53) ALGY-Difficulty Breathing Vitals/I&O/Wt Last Vital Signs Temp 97.6 F 01/14/20 10:54 Pulse 62 01/14/20 10:54 Resp 16 01/14/20 13:36 BP 108/72 01/14/20 10:54 Pulse Ox 100 01/14/20 10:54 01/13/20 01/14/20 01/14/20 22:59 06:59 14:59 Intake Total 1999 50 / 2050 1170 / 1170 Output Total 350 / 350 950 / 950 Balance 1999 -300 / 1700 220 / 220 Weight last 48 hrs Weight 63.73 kg Weight 58.967 kg Physical Exam Const: COMMON NORMALS: no acute distress, patient oriented x3 and alert GENERAL APPEARANCE: cooperative, comfortable, in distress and appears older than stated age ORIENTATION/CONSCIOUSNESS: Yes awake HENMT: COMMON NORMALS: normocephalic, atraumatic, hearing grossly normal bilaterally and moist oral mucous membranes HEAD & SCALP: normocephalic and atraumatic Eye: COMMON NORMALS: Equal, round and reactive pupils present, EOMs intact bilaterally and conjunctivae normal CONJUNCTIVA: Yes conjunctivae normal PUPIL: Yes Equal, round and reactive pupils present Neck/C-Spine: COMMON NORMALS: full ROM GENERAL: Yes normal visual inspection and Yes trachea midline Chest: CHEST: Yes Symmetrical chest wall rise Resp: COMMON NORMALS: normal respiratory effort, No retractions, No use of accessory muscles and clear to auscultation bilaterally EFFORT & INSPECTION: Yes able to speak in complete sentences, Yes symmetric chest movement and No tachypneic AUSCULTATION: clear to auscultation bilaterally OTHER: -on RA Cardio: COMMON NORMALS: regular rate, regular rhythm, S1 normal heart sound present, S2 normal heart sound present and No murmurs present (Cardio) RATE: regular rate RHYTHM: regular rhythm HEART SOUNDS: S1 normal heart sound present and S2 normal heart sound present GI: COMMON NORMALS: Normal to inspection, nondistended, normoactive bowel sounds present and Soft to palpation INSPECTION: Yes scar (vertical, crossing umbilicus) PALPATION: Yes Soft to palpation, Yes Tenderness to palpation present (GI), No Guarding due to palpation present (GI) and No Rigid due to palpation Extremity: NARRATIVE EXTREMITY EXAM: -s/p L BKA; stump looks appropriate -RLE: noted callus on dorsum of R forefoot below great toe area with ulcer draining purulent material, some necrotic material on wound bed; callus on second toe with small open wound, probes to bone, hammertoe. Peripheral pulses palpable Neuro: COMMON NORMALS: patient oriented x3, moves all extremities, no focal motor deficits and no sensory deficits noted SENSORIUM/ORIENTATION: Yes alert GAIT: Yes Other gait observations present (L BKA) Psych: COMMON NORMALS: mental status grossly normal, Normal thought process present, cooperative and speech normal SPEECH: Yes normal speech MOOD & AFFECT: Yes Flat affect present THOUGHT PROCESS: Normal thought process present Skin: COMMON NORMALS: no jaundice, no petechiae and no mottling NARRATIVE SKIN EXAM: -R diabetic foot ulcer Data : 01/14/20 05:20 01/14/20 05:20 Micro: Microbiology 01/13/20 19:55 Gram Stain - Final Other Source 01/13/20 17:50 Blood Culture - Preliminary Blood SPECIMEN COLLECTED 01/13/20 17:50 Blood Culture - Preliminary Blood SPECIMEN COLLECTED A&P Assessment and plan (1) Intractable abdominal pain: -Presents with ongoing right lower quadrant pain which has been noted on previous visits to the hospital per review of old [facility] records. Was recently seen at the ER in [place] for the same symptoms -Has been attributed to gastroparesis secondary to DM type I -Associated nausea/vomiting; significantly improved today -No acute intra-abdominal abnormality noted on imaging -Requested pelvic ultrasound; LMP-07/2018 -Pain control, antiemetics as needed, advanced to consistent carb diet per her request -IVF hydration; wean down with improved oral intake Status: Acute (2) Nausea & vomiting: -as noted above Status: Resolved Qualifiers: Vomiting Intractability: unspecified Vomiting type: unspecified Qualified Code(s): R11.2 - Nausea with vomiting, unspecified (3) Diabetic gastroparesis: -secondary to DM type I Status: Chronic (4) Acidosis, lactic: -likely secondary to dehydration and R diabetic foot ulcer -IVF hydration -management of R diabetic foot ulcer as noted -normalized (3.2->1.6) Status: Chronic (5) Diabetic foot ulcer: -noted on exam -Podiatry consult by Dr. Sin appreciated -arterial studies ordered, noted elevated inflammatory markers (CRP-8.0,ESR-62, thrombocytosis-resolved) -empiric IV antibiotics (Zosyn) -MRI today, pending arterial studies -wound cx pending, gram stain grew rare GPC and GPRs -blood cx pending -suspicious for osteomyelitis on clinical evaluation; likely chronic -LLE elevation Status: Acute Qualifiers: Diabetic foot ulcer location: other Diabetes mellitus type: type 1 Laterality: right Non-pressure ulcer stage: unspecified non-pressure ulcer stage Qualified Code(s): E10.621 - Type 1 diabetes mellitus with foot ulcer; L97.519 - Non-pressure chronic ulcer of other part of right foot with unspecified severity (6) Coronary artery disease: -hx of CAD s/p stenting -on ASA, Plavix; hold in case of surgery -not on statin Status: Chronic Qualifiers: Coronary Disease-Associated Artery/Lesion type: [place] artery [place] vs. transplanted heart: [place] heart Associated angina: without angina Qualified Code(s): I25.10 - Atherosclerotic heart disease of [place] coronary artery without angina pectoris (7) Diabetes mellitus type 1: -noted hx of DM type I complicated by nephropathy and neuropathy -A1c-7.5 -Accuchecks, ISS, hypoglycemia precautions -hyperglycemia without DKA Status: Chronic Qualifiers: Diabetes mellitus complication status: with other specified complication Qualified Code(s): E10.69 - Type 1 diabetes mellitus with other specified complication (8) CKD (chronic kidney disease) stage 2, GFR 60-89 ml/min: -secondary to diabetic nephropathy -baseline Cr is around 1.0 -has FIONA superimposed on CKD likely due to dehydration; FIONA improving -continue to monitor renal function, avoid nephrotoxins, renally dose meds -on IVF hydration Status: Chronic (9) Below-knee amputation of left lower extremity: -fall precautions Status: Chronic (10) Hyperlipidemia: Status: Chronic Qualifiers: Hyperlipidemia type: unspecified Qualified Code(s): E78.5 - Hyperlipidemia, unspecified Additional A&P Information -GI ppx with PPI -DVT ppx with heparin; hold in case of surgery -Dispo: home -Code status: FULL code Attestations Medical Necessity Statement*: Patient requires hospitalization for continued management of noted right diabetic foot ulcer, pending MRI and will likely require surgical intervention, currently on IV antibiotic treatment. Time Spent in Patient Care: 16 - 35 minutes (>than 50% of time spent in counselling and/or direct pt care on unit) . 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 Code Acute Children'S Nursery Assistant for Chg Fwd Diagnoses Intractable abdominal pain R10.9 Nausea & vomiting R11.2 Vomiting Intractability: unspecified Vomiting type: unspecified Diabetic gastroparesis E11.43; K31.84 Acidosis, lactic E87.2 Diabetic foot ulcer E10.621; L97.519 Diabetic foot ulcer location: other Diabetes mellitus type: type 1 Laterality: right Non-pressure ulcer stage: unspecified non-pressure ulcer stage Coronary artery disease I25.10 Coronary Disease-Associated Artery/Lesion type: [place] artery [place] vs. transplanted heart: [place] heart Associated angina: without angina Diabetes mellitus type 1 E10.69 Diabetes mellitus complication status: with other specified complication CKD (chronic kidney disease) stage 2, GFR 60-89 ml/min N18.2 Below-knee amputation of left lower extremity S88.112A Hyperlipidemia E78.5 Hyperlipidemia type: unspecified
--- NOTE | 2020-01-14 15:44 | PC.NURSE ---
Patient returned to room from MRI at this time.
[2020-01-14 16:55] LABS: Glucose Point of Care 176 mg/dL (70-110)
[2020-01-14] MEDS: oxyCODONE-APAP 5-325 mg Tablet 1 TAB PO (17:40)
--- NOTE | 2020-01-14 20:07 | MR_ITS ---
WS: [id number] MRI RIGHT FOOT without CONTRAST. COMPARISON: Foot radiograph 01/13/2020. Multiplanar, multisequence imaging is performed without contrast. Status post amputation of the distal first phalanx and nearly 80% of the proximal phalanx first toe. There is diffuse increased T2 signal in the remaining proximal first phalanx with adjacent soft tissu e edema and swelling. There is marked mixed fluid and soft tissue attenuation surrounding the amputat ion site with extension along the first metatarsal. Small moderate increase fluid extends into the fi rst metatarsophalangeal joint. There is loss of the normal subcutaneous soft tissue differentiation. Soft tissue ulceration along the plantar surface of the first toe measures at least 1.6 cm. Although less well-visualized there is soft tissue edema and fluid like signal surrounding the distal second toe. Highly suspicious for osteomyelitis. The toe distal second toe is abnormal radiographica lly also. MR/MR foot RT wo con* [id number] IMPRESSION: 1. Prior amputation of the distal phalanx first toe and 80% of the proximal ph alanx. 2. Marrow edema in the remaining nonamputated proximal phalanx of the first to e. Highly suspicious for osteomyelitis but cannot confirm without IV contrast. 3. Large amount of soft tissue inflammatory changes and ulceration surrounding the first toe with extension along the first metatarsal and between the first and second toes. Soft tissue ulceration measures 1.6 cm along the plantar surfa ce of the first toe. 4. Abnormal soft tissue and marrow signal involving the distal second toe. Hig hly suspicious for cellulitis with osteomyelitis. Again cannot completely confi rm osteomyelitis without IV contrast.
[2020-01-14] MEDS: insulin glargine 100 units/1 mL 10 UNIT SUBCUT (21:50)
[2020-01-14 22:03] LABS: Glucose Point of Care 217 mg/dL (70-110)
[2020-01-15] VITALS (26 sets, daily range): BP systolic 115–168; BP diastolic 69–94; PULSE 54–73; RESP 9–21; TEMP 36.2–37; O2SAT 97–100
[2020-01-15] MEDS: oxyCODONE-APAP 10-325 mg Tablet 1 TAB PO ×4 (02:01→22:38)
[2020-01-15] MEDS: D5-NS 0.45% + KCL 20 mEq 20 MEQ/1,000 ML BAG 100 MEQ IV (03:28)
[2020-01-15] MEDS: piperacillin-tazobactam 3.375 GM in sodium chloride 0.9% (plus) 50 ML IV ×2 (03:28→21:02)
[2020-01-15] MEDS: ondansetron 2 mg/ML SDV 2 mL 4 MG IVP ×3 (03:40→21:17)
[2020-01-15 05:46] LABS: Glucose Point of Care 168 mg/dL (70-110)
[2020-01-15 06:16] LABS: Basophils % 0.9 %; Eosinophils # 0.1 10^3/uL (0.0-0.8); Eosinophils % 3.5 %; Hematocrit 27.9 % (37.0-47.0); Hemoglobin 9.1 g/dL (11.5-15.3); Lymphocytes # 1.6 10^3/uL (0.8-4.8); Lymphocytes % 45.8 %; Mean Corpuscular HGB Conc 32.6 g/dL (30.0-36.0); Mean Corpuscular Hemoglobin 30.3 pg (28.0-34.0); Mean Platelet Volume 8.6 fL (7.4-10.4); Monocytes # 0.3 10^3/uL (0.2-0.9); Monocytes % 7.2 %; Neutrophils # 1.5 10^3/uL (1.8-7.7); Neutrophils % 42.3 %; Nucleated Red Blood Cells % 0 %; Platelet Count 235 10^3/cmm (130-400); Red Cell Distribution Width 13.2 % (12.1-15.1); White Blood Count 3.5 10^3/uL (4.0-10.0)
--- NOTE | 2020-01-15 06:36 | P.PN_ITS ---
Subjective Subjective: Interval history: Patient seen bedside this morning, pain well controlled. She was resting comfortably when entering the room. She has been n.p.o. since midnight in preparation for surgery today. Denies any complaints. Vitals/I&O/Wt Last Vital Signs Temp 97.8 F 01/15/20 04:00 Pulse 60 01/15/20 04:00 Resp 16 01/15/20 04:00 BP 132/82 01/15/20 04:00 Pulse Ox 98 01/15/20 04:00 01/14/20 01/14/20 01/15/20 14:59 22:59 06:59 Intake Total 1170 / 1170 170 / 1340 1170 / 2510 Output Total 950 / 950 800 / 1750 1350 / 3100 Balance 220 / 220 -630 / -410 -180 / -590 Weight last 48 hrs Weight 140 lb 8 oz Weight 130 lb Physical Exam Narrative: EXAM NARRATIVE: GENERAL: Patient is alert and oriented ?3 and in no acute distress. The following is a focused right lower extremity exam. VASCULAR: Dorsalis pedis and posterior tibial arteries palpable +2. Capillary refill time less than 3 seconds to the distal remaining toes right foot. Calf is supple and nontender proximally and distally. Some pedal hair growth is present. Focal edema at the right second toe distally. NEUROLOGICAL: Protective sensation intact 0/10 sites, tested with Lena Michaela monofilament to bilateral feet. DERMATOLOGICAL: Full-thickness wound sub-first metatarsal head probes to sesamoids has spongy base largely fibrotic with hyperkeratotic rim has significant devitalized subcutaneous tissue there is no shelbi purulence, no malodor no periwound erythema or proximal lymphangitic streaking noted. Small sinus tract at the distal tuft of the right second toe probes to bone this is a small wound measuring 3 mm x 3 mm x 4 mm deep, no periwound erythema warmth or drainage, no malodor, no proximal lymphangitic streaking from this wound. MUSCULOSKELETAL: Status post left below knee amputation. Status post partial right hallux amputation. Reducible hammertoe deformities 2 through 5 right foot. Ankle joint dorsiflexion 5 degrees beyond neutral. Muscle strength 5 out of 5 in all 3 cardinal planes to the right foot and ankle. Data : 01/15/20 06:00 05/28/20 05:20 Micro: Microbiology 01/13/20 17:50 Blood Culture - Preliminary Blood NEGATIVE TO DATE 01/13/20 17:50 Blood Culture - Preliminary Blood NEGATIVE TO DATE 01/13/20 19:55 Gram Stain - Final Other Source A&P Additional A&P Information Diabetic foot ulcer exposed bone right foot, clinically stable no leukocytosis, patient is afebrile, ESR 62, CRP 8.0, albumin 3.6. On lateral view of x-ray right foot I can appreciate some cortical irregularities and erosive changes at the plantar base of the proximal phalanx right hallux consistent with osteomyelitis. No foreign body no soft tissue emphysema appreciated. Planning for MRI today, no contrast due to renal impairment. MRI report pending. Patient scheduled for partial right second toe amputation and sesamoidectomy and resection of remaining proximal phalanx base of the right hallux. Patient is agreeable and wishes to proceed. Will review official MRI report prior to proceeding later this morning. Attestations Medical Necessity Statement*: Osteomyelitis right foot 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 Code Acute Disposal Plant Operator for Kim Mitchell
[2020-01-15 06:48] LABS: Anion Gap 14.9 (5-19); Blood Urea Nitrogen 18 mg/dL (6-20); Calcium 9.7 mg/dL (8.5-10.5); Carbon Dioxide 24 mmol/L (22-29); Chloride 101 mmol/L (98-107); Glomerular Filtration Rate 38.3 mL/min (90-130); Glucose 182 mg/dL (65-115); Osmolality Calculated 281 mOsm/kg (285-295); Potassium 4.9 mmol/L (3.5-5.1); Sodium 135 mmol/L (136-145)
--- NOTE | 2020-01-15 07:57 | PC.NURSE ---
Held 0800 dose of Novolog d/t NPO status and surgery this AM.
[2020-01-15] MEDS: carvedilol 3.125 mg Tablet PO ×2 (09:46→21:04)
[2020-01-15] MEDS: pantoprazole 40 mg SDV IVP ×2 (09:46→21:02)
[2020-01-15] MEDS: gabapentin 400 mg Capsule PO ×2 (09:46→21:04)
[2020-01-15 10:50] LABS: Glucose Point of Care 155 mg/dL (70-110)
--- NOTE | 2020-01-15 11:57 | ANES.PREANE2 ---
Pre-Anesthetic Assessment Pre-Anesthetic Assessment: Height/Weight: Height 1.75 m Weight 66.361 kg Temp Pulse Resp BP Pulse Ox 98.6 F 55 L 16 151/94 100 01/15/20 11:46 01/15/20 11:46 01/15/20 11:46 01/15/20 11:46 01/15/20 11:46 Proposed Procedure: Operation Date: 01/15/20 13:20 Proposed Procedures p Amputation Toe/s(Right) - Rafael Sin DPM s Excision Metatarsal Bone(Right) - Rafael Sin DPM Last intake: Intake Last Liquid Date 01/14/20 Last Liquid Time 22:30 Last Solid Date 01/14/20 Last Solid Time 21:30 Social: Social History: Tobacco (quit 2004) and No alcohol Exam: Pre-Anes Outpt Exam: alert, oriented x 3, clear to auscultation bilaterally and regular rate & rhythm Airway: Submandibular: WNL Cervical ROM: WNL MP: 1 Dentition: Other (very poor dentation) History/ROS: No significant history except as noted Pulmonary: Pulmonary: None reported CV/HEM: CV/HEM: HTN : : None reported Hepatic: Hepatic: None reported GI: GI: GERD (not well controlled) Metabolic: Metabolic: DM Neuropsych: Neuropsych: Anxiety, Depression and Neuropathy (hands and feet) Anesthetic Plan: ASA status: 4 Anesthesia: Anesthesia Evaluation and MAC Risk of > 500 ml blood loss (7ml/kg in children): No Meds/Allergies Current Medications: Current Medications Generic Name Dose Route Start Last Admin Trade Name Freq PRN Reason Stop Dose Admin Aspirin 81 mg 01/14/20 09:00 01/14/20 08:26 Aspirin Ec PO 81 mg DAILY DAWSON Administration Carvedilol 3.125 mg 01/13/20 19:15 01/15/20 09:46 Coreg PO 3.125 mg Q12H DAWSON Administration Gabapentin 400 mg 01/13/20 21:00 01/15/20 09:46 Neurontin PO 400 mg TID DAWSON Administration Heparin Sodium (Be ef Lung) 5,000 unit 01/13/20 19:30 01/14/20 08:26 Heparin SUBCUT 5,000 unit Q12H DAWSON Administration Potassium Chloride /Dextrose/Sod Cl 20 meq in 1,000 m ls @ 100 mls/hr 01/13/20 19:30 01/15/20 03:28 D5-Ns 0.45% + Scottie l 20 Meq IV 100 mls/hr .Q10H DAWSON Administration Piperacillin Sod/T azobactam 50 mls @ 12.5 mls /hr 01/13/20 20:00 01/15/20 03:28 Sod 3.375 gm/ So dium Chloride IV 12.5 mls/hr Q8H DAWSON Administration Protocol Insulin Aspart 0 unit 01/13/20 19:15 01/15/20 07:56 Novolog SUBCUT Not Given WM&BEDTIME DAWSON Protocol Insulin Glargine 10 unit 01/13/20 21:00 01/14/20 21:50 Lantus SUBCUT 10 unit BEDTIME DAWSON Administration Ondansetron HCl 4 mg 01/13/20 21:02 01/15/20 09:47 Zofran IVP 4 mg Q6H PRN Administration NAUSEA AND VOMITI NG Oxycodone/Acetamin ophen 1 tab 01/13/20 19:15 01/14/20 17:40 Percocet 5-325 M g PO 1 tab Q4H PRN Administration MODERATE PAIN Oxycodone/Acetamin ophen 1 tab 01/13/20 20:53 01/15/20 11:02 Percocet 10-325 Mg PO 1 tab Q4H PRN Administration MODERATE PAIN Pantoprazole Sodiu m 40 mg 01/13/20 19:15 01/15/20 09:46 Protonix IVP 40 mg Q12H DAWSON Administration Additional Medication Information: Active Medications Generic Name Dose Route Start Last Admin Trade Name Freq PRN Reason Stop Dose Admin Acetaminophen 650 mg 01/13/20 19:15 Tylenol PO Q6H PRN Mild/Mod Pain Or Temp >/= 101 Aspirin 81 mg 01/14/20 09:00 01/14/20 08:26 Aspirin Ec PO 81 mg DAILY DAWSON Administration Carvedilol 3.125 mg 01/13/20 19:15 01/14/20 08:26 Coreg PO 3.125 mg Q12H DAWSON Administration Dextrose 25 ml 01/13/20 19:15 D50w IVP ONCE PRN hypoglycemia prot ocol Protocol Dextrose 50 ml 01/13/20 19:15 D50w IVP PRN PRN hypoglycemia prot ocol Protocol Gabapentin 400 mg 01/13/20 21:00 01/14/20 08:27 Neurontin PO 400 mg TID DAWSON Administration Glucagon 1 mg 01/13/20 19:15 Glucagen IM ONCE PRN Adult Acute Hypog lycemia Prot. Protocol Heparin Sodium (Be ef Lung) 5,000 unit 01/13/20 19:30 01/14/20 08:26 Heparin SUBCUT 5,000 unit Q12H DAWSON Administration Hydralazine HCl 10 mg 01/13/20 19:15 Apresoline IVP Q4H PRN SYSTOLIC BLOOD IA ESSURE Hydromorphone HCl 2 mg 01/13/20 19:15 Dilaudid Tab PO Q6H PRN SEVERE PAIN Potassium Chloride /Dextrose/Sod Cl 20 meq in 1,000 m ls @ 100 mls/hr 01/13/20 19:30 01/14/20 13:24 D5-Ns 0.45% + Scottie l 20 Meq IV 100 mls/hr .Q10H DAWSON Administration Piperacillin Sod/T azobactam 50 mls @ 12.5 mls /hr 01/13/20 20:00 01/14/20 11:13 Sod 3.375 gm/ So dium Chloride IV 12.5 mls/hr Q8H DAWSON Administration Protocol Dextrose 500 mls @ 100 mls /hr 01/13/20 19:15 D5w IV ONCE PRN Adult Acute Hypog lycemia Prot Protocol Insulin Aspart 0 unit 01/13/20 19:15 01/14/20 13:24 Novolog SUBCUT Not Given WM&BEDTIME [facility] Protocol Insulin Glargine 10 unit 01/13/20 21:00 01/13/20 21:20 Lantus SUBCUT Not Given BEDTIME [facility] Ondansetron HCl 4 mg 01/13/20 21:02 01/14/20 11:11 Zofran IVP 4 mg Q6H PRN Administration NAUSEA AND VOMITI NG Oxycodone/Acetamin ophen 1 tab 01/13/20 19:15 Percocet 5-325 M g PO Q4H PRN MODERATE PAIN Oxycodone/Acetamin ophen 1 tab 01/13/20 20:53 01/14/20 13:36 Percocet 10-325 Mg PO 1 tab Q4H PRN Administration MODERATE PAIN Pantoprazole Sodiu m 40 mg 01/13/20 19:15 01/14/20 08:26 Protonix IVP 40 mg Q12H DAWSON Administration morphine Allergy (Verified 01/13/20 11:53) ALGY-Difficulty Breathing PFSH Anesthesia PFSH: Medical History (Updated 01/14/20 @ 14:23 by Lamar Suarez MD) CKD (chronic kidney disease) stage 2, GFR 60-89 ml/min Coronary artery disease Diabetes mellitus type 1 Diabetic gastroparesis Hyperlipidemia Surgical History (Updated 01/13/20 @ 18:54 by Lamar Suarez MD) Below-knee amputation of left lower extremity H/O exploratory laparotomy x 3 Previous section x 3 S/P coronary artery stent placement x 1 S/P percutaneous endoscopic gastrostomy (PEG) tube placement Family History (Updated 01/13/20 @ 18:40 by Lamar Suarez MD) Unknown Diabetes extensive, type II Other CHF (congestive heart failure) Social History (Updated 01/13/20 @ 18:41 by Lamar Suarez MD) Smoking and tobacco status: former smoker Quit status (tobacco): has quit using tobacco Former quit date comment: 15 yrs ago Alcohol intake: former Former alcohol use details: 15 yrs ago Substance/Drug Use: never Household members: spouse Marital status: Sexually active: Yes (1, ) Data Anesthesia CBC & Chem 7: 01/15/20 06:00 01/15/20 06:00 Other Labs: Laboratory Results - last 48 hr 01/13/20 01/13/20 01/13/20 10:58 10:58 10:58 WBC 8.8 RBC 3.86 L Hgb 11.5 Hct 35.9 L MCV 93.0 MCH 29.8 MCHC 32.0 RDW 14.0 Plt Count 526 H MPV 8.5 Neut % (Auto) 70.4 Lymph % (Auto) 20.0 [place] % (Auto) 8.0 Eos % (Auto) 0.8 Baso % (Auto) 0.5 Neut # (Auto) 6.2 Lymph # (Auto) 1.8 [place] # (Auto) 0.7 Eos # (Auto) 0.1 Baso # (Auto) 0.0 Nucleated RBC % (auto) 0 Nucleated RBCs # 0.0 ESR Sodium 138 Potassium 3.5 Chloride 90 L Carbon Dioxide 30 H Anion Gap 21.5 H BUN 29 H Creatinine 2.1 H GFR Calculation 26.0 L Glucose 221 H POC Glucose Estimat Average Glucose Hemoglobin A1c Calculated Osmolality 290 Lactic Acid (Sepsis) Lactate Calcium 10.0 Total Bilirubin 0.4 AST 13 ALT 16 Alkaline Phosphatase 153 H Creatine Kinase 48 C-Reactive Protein 9.0 H Total Protein 8.5 Albumin 4.6 Globulin 3.9 Lipase 30 HCG, Qual Urine Color Urine Appearance Urine pH Ur Specific [place] Urine Protein Urine Glucose (UA) Urine Ketones Urine Blood Urine Nitrate Urine Bilirubin Urine Urobilinogen Ur Leukocyte Esterase Urine Opiates Screen Ur Barbiturates Screen Ur Phencyclidine Scrn Ur Amphetamines Screen U Benzodiazepines Scrn Urine Cocaine Screen U Marijuana (THC) Screen Ethyl Alcohol < 10 01/13/20 01/13/20 01/13/20 10:58 12:17 15:36 WBC RBC Hgb Hct MCV MCH MCHC RDW Plt Count MPV Neut % (Auto) Lymph % (Auto) [place] % (Auto) Eos % (Auto) Baso % (Auto) Neut # (Auto) Lymph # (Auto) [place] # (Auto) Eos # (Auto) Baso # (Auto) Nucleated RBC % (auto) Nucleated RBCs # ESR 62 H Sodium Potassium Chloride Carbon Dioxide Anion Gap BUN Creatinine GFR Calculation Glucose POC Glucose Estimat Average Glucose Hemoglobin A1c Calculated Osmolality Lactic Acid (Sepsis) Lactate 3.2 H Calcium Total Bilirubin AST ALT Alkaline Phosphatase Creatine Kinase C-Reactive Protein Total Protein Albumin Globulin Lipase HCG, Qual Negative Urine Color Urine Appearance Urine pH Ur Specific [place] Urine Protein Urine Glucose (UA) Urine Ketones Urine Blood Urine Nitrate Urine Bilirubin Urine Urobilinogen Ur Leukocyte Esterase Urine Opiates Screen Ur Barbiturates Screen Ur Phencyclidine Scrn Ur Amphetamines Screen U Benzodiazepines Scrn Urine Cocaine Screen U Marijuana (THC) Screen Ethyl Alcohol 01/13/20 01/13/20 01/13/20 15:36 15:36 15:44 WBC RBC Hgb Hct MCV MCH MCHC RDW Plt Count MPV Neut % (Auto) Lymph % (Auto) [place] % (Auto) Eos % (Auto) Baso % (Auto) Neut # (Auto) Lymph # (Auto) [place] # (Auto) Eos # (Auto) Baso # (Auto) Nucleated RBC % (auto) Nucleated RBCs # ESR Sodium Potassium Chloride Carbon Dioxide Anion Gap BUN Creatinine GFR Calculation Glucose POC Glucose Estimat Average Glucose Hemoglobin A1c Calculated Osmolality Lactic Acid (Sepsis) 1.6 Lactate Calcium Total Bilirubin AST ALT Alkaline Phosphatase Creatine Kinase C-Reactive Protein Total Protein Albumin Globulin Lipase HCG, Qual Urine Color Yellow Urine Appearance Clear Urine pH 7 Ur Specific [place] 1.010 Urine Protein Neg Urine Glucose (UA) Norm Urine Ketones Negative Urine Blood Neg Urine Nitrate Negative Urine Bilirubin Neg Urine Urobilinogen Norm Ur Leukocyte Esterase Negative Urine Opiates Screen Positive H Ur Barbiturates Screen Negative Ur Phencyclidine Scrn Negative Ur Amphetamines Screen Negative U Benzodiazepines Scrn Negative Urine Cocaine Screen Negative U Marijuana (THC) Screen Negative Ethyl Alcohol 01/13/20 01/13/20 01/14/20 17:50 21:03 05:20 WBC 4.8 RBC 3.43 L Hgb 10.3 L Hct 31.7 L MCV 92.4 MCH 30.0 MCHC 32.5 RDW 13.5 Plt Count 326 MPV 8.5 Neut % (Auto) 46.8 Lymph % (Auto) 40.5 [place] % (Auto) 8.8 Eos % (Auto) 2.9 Baso % (Auto) 0.8 Neut # (Auto) 2.2 Lymph # (Auto) 1.9 [place] # (Auto) 0.4 Eos # (Auto) 0.1 Baso # (Auto) 0.0 Nucleated RBC % (auto) 0 Nucleated RBCs # 0.0 ESR Sodium Potassium Chloride Carbon Dioxide Anion Gap BUN Creatinine GFR Calculation Glucose POC Glucose 110 Estimat Average Glucose Hemoglobin A1c Calculated Osmolality Lactic Acid (Sepsis) Lactate Calcium Total Bilirubin AST ALT Alkaline Phosphatase Creatine Kinase C-Reactive Protein 8.0 H Total Protein Albumin Globulin Lipase HCG, Qual Urine Color Urine Appearance Urine pH Ur Specific [place] Urine Protein Urine Glucose (UA) Urine Ketones Urine Blood Urine Nitrate Urine Bilirubin Urine Urobilinogen Ur Leukocyte Esterase Urine Opiates Screen Ur Barbiturates Screen Ur Phencyclidine Scrn Ur Amphetamines Screen U Benzodiazepines Scrn Urine Cocaine Screen U Marijuana (THC) Screen Ethyl Alcohol 01/14/20 01/14/20 01/14/20 05:20 06:09 06:16 WBC RBC Hgb Hct MCV MCH MCHC RDW Plt Count MPV Neut % (Auto) Lymph % (Auto) [place] % (Auto) Eos % (Auto) Baso % (Auto) Neut # (Auto) Lymph # (Auto) [place] # (Auto) Eos # (Auto) Baso # (Auto) Nucleated RBC % (auto) Nucleated RBCs # ESR Sodium 138 Potassium 4.3 Chloride 99 Carbon Dioxide 28 Anion Gap 15.3 BUN 20 Creatinine 1.3 H GFR Calculation 45.1 L Glucose 142 H POC Glucose 175 Estimat Average Glucose 169 Hemoglobin A1c 7.5 H Calculated Osmolality 285 Lactic Acid (Sepsis) Lactate Calcium 9.1 Total Bilirubin 0.3 AST 17 ALT 13 Alkaline Phosphatase 130 H Creatine Kinase C-Reactive Protein Total Protein 6.2 L D Albumin 3.6 Globulin 2.6 Lipase HCG, Qual Urine Color Urine Appearance Urine pH Ur Specific [place] Urine Protein Urine Glucose (UA) Urine Ketones Urine Blood Urine Nitrate Urine Bilirubin Urine Urobilinogen Ur Leukocyte Esterase Urine Opiates Screen Ur Barbiturates Screen Ur Phencyclidine Scrn Ur Amphetamines Screen U Benzodiazepines Scrn Urine Cocaine Screen U Marijuana (THC) Screen Ethyl Alcohol 01/14/20 01/14/20 01/14/20 10:53 16:31 21:08 WBC RBC Hgb Hct MCV MCH MCHC RDW Plt Count MPV Neut % (Auto) Lymph % (Auto) [place] % (Auto) Eos % (Auto) Baso % (Auto) Neut # (Auto) Lymph # (Auto) [place] # (Auto) Eos # (Auto) Baso # (Auto) Nucleated RBC % (auto) Nucleated RBCs # ESR Sodium Potassium Chloride Carbon Dioxide Anion Gap BUN Creatinine GFR Calculation Glucose POC Glucose 157 176 217 Estimat Average Glucose Hemoglobin A1c Calculated Osmolality Lactic Acid (Sepsis) Lactate Calcium Total Bilirubin AST ALT Alkaline Phosphatase Creatine Kinase C-Reactive Protein Total Protein Albumin Globulin Lipase HCG, Qual Urine Color Urine Appearance Urine pH Ur Specific [place] Urine Protein Urine Glucose (UA) Urine Ketones Urine Blood Urine Nitrate Urine Bilirubin Urine Urobilinogen Ur Leukocyte Esterase Urine Opiates Screen Ur Barbiturates Screen Ur Phencyclidine Scrn Ur Amphetamines Screen U Benzodiazepines Scrn Urine Cocaine Screen U Marijuana (THC) Screen Ethyl Alcohol 01/15/20 01/15/20 01/15/20 05:43 06:00 06:00 WBC 3.5 L RBC 3.00 L Hgb 9.1 L Hct 27.9 L MCV 93.0 MCH 30.3 MCHC 32.6 RDW 13.2 Plt Count 235 MPV 8.6 Neut % (Auto) 42.3 Lymph % (Auto) 45.8 [place] % (Auto) 7.2 Eos % (Auto) 3.5 Baso % (Auto) 0.9 Neut # (Auto) 1.5 L Lymph # (Auto) 1.6 [place] # (Auto) 0.3 Eos # (Auto) 0.1 Baso # (Auto) 0.0 Nucleated RBC % (auto) 0 Nucleated RBCs # 0.0 ESR Sodium 135 L Potassium 4.9 Chloride 101 Carbon Dioxide 24 Anion Gap 14.9 BUN 18 Creatinine 1.5 H GFR Calculation 38.3 L Glucose 182 H POC Glucose 168 Estimat Average Glucose Hemoglobin A1c Calculated Osmolality 281 L Lactic Acid (Sepsis) Lactate Calcium 9.7 Total Bilirubin AST ALT Alkaline Phosphatase Creatine Kinase C-Reactive Protein Total Protein Albumin Globulin Lipase HCG, Qual Urine Color Urine Appearance Urine pH Ur Specific [place] Urine Protein Urine Glucose (UA) Urine Ketones Urine Blood Urine Nitrate Urine Bilirubin Urine Urobilinogen Ur Leukocyte Esterase Urine Opiates Screen Ur Barbiturates Screen Ur Phencyclidine Scrn Ur Amphetamines Screen U Benzodiazepines Scrn Urine Cocaine Screen U Marijuana (THC) Screen Ethyl Alcohol 01/15/20 10:41 WBC RBC Hgb Hct MCV MCH MCHC RDW Plt Count MPV Neut % (Auto) Lymph % (Auto) [place] % (Auto) Eos % (Auto) Baso % (Auto) Neut # (Auto) Lymph # (Auto) [place] # (Auto) Eos # (Auto) Baso # (Auto) Nucleated RBC % (auto) Nucleated RBCs # ESR Sodium Potassium Chloride Carbon Dioxide Anion Gap BUN Creatinine GFR Calculation Glucose POC Glucose 155 Estimat Average Glucose Hemoglobin A1c Calculated Osmolality Lactic Acid (Sepsis) Lactate Calcium Total Bilirubin AST ALT Alkaline Phosphatase Creatine Kinase C-Reactive Protein Total Protein Albumin Globulin Lipase HCG, Qual Urine Color Urine Appearance Urine pH Ur Specific [place] Urine Protein Urine Glucose (UA) Urine Ketones Urine Blood Urine Nitrate Urine Bilirubin Urine Urobilinogen Ur Leukocyte Esterase Urine Opiates Screen Ur Barbiturates Screen Ur Phencyclidine Scrn Ur Amphetamines Screen U Benzodiazepines Scrn Urine Cocaine Screen U Marijuana (THC) Screen Ethyl Alcohol Micro: Microbiology 01/13/20 19:55 Gram Stain - Final Other Source Wound Culture - Preliminary 01/13/20 17:50 Blood Culture - Preliminary Blood NEGATIVE TO DATE 01/13/20 17:50 Blood Culture - Preliminary Blood NEGATIVE TO DATE Cardiac Studies: No Data to Display
--- NOTE | 2020-01-15 12:22 | P.PN_ITS ---
Subjective Subjective: Interval history: NPO after midnight for OR today. Hemodynamically stable, afebrile, slight increase in creatinine from 1.3->1.5. Reviewed Accu-Cheks. Right foot MRI findings highly suspicious for osteomyelitis, arterial studies within normal limits. Patient seen after return from OR, she appears quite restless and reports significant pain in the right foot. Bulky dressing in place, very minimal strikethrough noted. Consistent carb diet resumed after return from OR which she has continued to tolerate well. Medications: Reviewed: Yes Medication Review Details: Active Medications Generic Name Dose Route Start Last Admin Trade Name Freq PRN Reason Stop Dose Admin Acetaminophen 650 mg 01/13/20 19:15 Tylenol PO Q6H PRN Mild/Mod Pain Or Temp >/= 101 Albuterol Sulfate 2.5 mg 01/15/20 12:00 Albuterol INHALATION ONCE PRN WHEEZING Aspirin 81 mg 01/14/20 09:00 01/14/20 08:26 Aspirin Ec PO 81 mg DAILY DAWSON Administration Carvedilol 3.125 mg 01/13/20 19:15 01/15/20 09:46 Coreg PO 3.125 mg Q12H DAWSON Administration Dextrose 25 ml 01/13/20 19:15 D50w IVP ONCE PRN hypoglycemia prot ocol Protocol Dextrose 50 ml 01/13/20 19:15 D50w IVP PRN PRN hypoglycemia prot ocol Protocol Famotidine 20 mg 01/15/20 12:00 Pepcid Inj IVP ONCE PRN HEARTBURN Fentanyl 50 mcg 01/15/20 12:00 Sublimaze IVP Q10M PRN Preop Pain Fentanyl 100 mcg 01/15/20 12:00 Sublimaze IVP ONCE PRN Per anesthesia fo r block Gabapentin 400 mg 01/13/20 21:00 01/15/20 09:46 Neurontin PO 400 mg TID DAWSON Administration Glucagon 1 mg 01/13/20 19:15 Glucagen IM ONCE PRN Adult Acute Hypog lycemia Prot. Protocol Heparin Sodium (Be ef Lung) 5,000 unit 01/13/20 19:30 01/14/20 08:26 Heparin SUBCUT 5,000 unit Q12H DAWSON Administration Hydralazine HCl 10 mg 01/13/20 19:15 Apresoline IVP Q4H PRN SYSTOLIC BLOOD [place] ESSURE Hydromorphone HCl 2 mg 01/13/20 19:15 Dilaudid Tab PO Q6H PRN SEVERE PAIN Potassium Chloride /Dextrose/Sod Cl 20 meq in 1,000 m ls @ 100 mls/hr 01/13/20 19:30 01/15/20 03:28 D5-Ns 0.45% + Scottie l 20 Meq IV 100 mls/hr .Q10H DAWSON Administration Piperacillin Sod/T azobactam 50 mls @ 12.5 mls /hr 01/13/20 20:00 01/15/20 03:28 Sod 3.375 gm/ So dium Chloride IV 12.5 mls/hr Q8H DAWSON Administration Protocol Dextrose 500 mls @ 100 mls /hr 01/13/20 19:15 D5w IV ONCE PRN Adult Acute Hypog lycemia Prot Protocol Sodium Chloride 1,000 mls @ 30 ml s/hr 01/15/20 12:00 Sodium Chloride 0.9% IV 01/16/20 11:59 .Q24H DAWSON Insulin Aspart 0 unit 01/13/20 19:15 01/15/20 07:56 Novolog SUBCUT Not Given WM&BEDTIME DAWSON Protocol Insulin Glargine 10 unit 01/13/20 21:00 01/14/20 21:50 Lantus SUBCUT 10 unit BEDTIME DAWSON Administration Ipratropium Bromid e 0.5 mg 01/15/20 12:00 Atrovent Neb INHALATION ONCE PRN WHEEZING Lidocaine HCl 0.1 ml 01/15/20 12:00 Lidocaine 1% INTRADERMA 01/16/20 11:59 PRN PRN anesthetic prior to IV start Lidocaine HCl 1 ml 01/15/20 12:00 Lidocaine 2% Vis cous TOPICAL PRN PRN Anesthetic prior to IV start Metoclopramide HCl 10 mg 01/15/20 12:00 Reglan IVP ONCE PRN N/V if zofran ine ffective Midazolam HCl 2 mg 01/15/20 12:00 Versed IVP Q5M PRN Preop Anxiety Midazolam HCl 5 mg 01/15/20 12:00 Versed IVP ONCE PRN Per anesthesia fo r block Ondansetron HCl 4 mg 01/13/20 21:02 01/15/20 09:47 Zofran IVP 4 mg Q6H PRN Administration NAUSEA AND VOMITI NG Ondansetron HCl 4 mg 01/15/20 12:00 Zofran IVP Q5M PRN NAUSEA AND VOMITI NG Oxycodone/Acetamin ophen 1 tab 01/13/20 19:15 01/14/20 17:40 Percocet 5-325 M g PO 1 tab Q4H PRN Administration MODERATE PAIN Oxycodone/Acetamin ophen 1 tab 01/13/20 20:53 01/15/20 11:02 Percocet 10-325 Mg PO 1 tab Q4H PRN Administration MODERATE PAIN Pantoprazole Sodiu m 40 mg 01/13/20 19:15 01/15/20 09:46 Protonix IVP 40 mg Q12H DAWSON Administration Scopolamine 1 patch 01/15/20 12:00 Transderm-Scop TRANSDERMA ONCE PRN Nausea/ Vomiting Prophylaxis morphine Allergy (Verified 01/13/20 11:53) ALGY-Difficulty Breathing Vitals/I&O/Wt Last Vital Signs Temp 98.6 F 01/15/20 11:46 Pulse 55 L 01/15/20 11:46 Resp 16 01/15/20 11:46 BP 151/94 01/15/20 11:46 Pulse Ox 100 01/15/20 11:46 01/14/20 01/15/20 01/15/20 22:59 06:59 14:59 Intake Total 170 / 1340 1170 / 2510 Output Total 800 / 1750 1350 / 3100 400 / 400 Balance -630 / -410 -180 / -590 -400 / -400 Weight last 48 hrs Weight 66.361 kg Weight 63.73 kg Physical Exam Const: COMMON NORMALS: no acute distress, patient oriented x3 and alert GENERAL APPEARANCE: cooperative and appears older than stated age; not comfortable ORIENTATION/CONSCIOUSNESS: Yes awake HENMT: COMMON NORMALS: normocephalic, atraumatic, hearing grossly normal bilaterally and moist oral mucous membranes HEAD & SCALP: normocephalic and atraumatic Eye: COMMON NORMALS: Equal, round and reactive pupils present, EOMs intact bilaterally and conjunctivae normal CONJUNCTIVA: Yes conjunctivae normal PUPIL: Yes Equal, round and reactive pupils present Neck/C-Spine: COMMON NORMALS: full ROM GENERAL: Yes normal visual inspection and Yes trachea midline Chest: CHEST: Yes Symmetrical chest wall rise Resp: COMMON NORMALS: normal respiratory effort, No retractions, No use of accessory muscles and clear to auscultation bilaterally EFFORT & INSPECTION: Yes able to speak in complete sentences, Yes symmetric chest movement and No tachypneic AUSCULTATION: clear to auscultation bilaterally OTHER: -on RA Cardio: COMMON NORMALS: regular rate, regular rhythm, S1 normal heart sound present, S2 normal heart sound present and No murmurs present (Cardio) RATE: regular rate RHYTHM: regular rhythm HEART SOUNDS: S1 normal heart sound present and S2 normal heart sound present GI: COMMON NORMALS: Normal to inspection, nondistended, normoactive bowel sounds present and Soft to palpation INSPECTION: Yes scar (vertical, crossing umbilicus) PALPATION: Yes Soft to palpation, Yes Tenderness to palpation present (GI), No Guarding due to palpation present (GI) and No Rigid due to palpation Extremity: NARRATIVE EXTREMITY EXAM: -s/p L BKA; stump looks appropriate -RLE: bulky dressing in place, minimal strikethrough Neuro: COMMON NORMALS: patient oriented x3, moves all extremities, no focal motor deficits and no sensory deficits noted SENSORIUM/ORIENTATION: Yes alert GAIT: Yes Other gait observations present (L BKA) Psych: COMMON NORMALS: mental status grossly normal, Normal thought process present, cooperative and speech normal ACTIVITY/MOTOR BEHAVIOR: Yes restless (due to pain) SPEECH: Yes normal speech MOOD & AFFECT: Yes Flat affect present THOUGHT PROCESS: Normal thought process present Skin: COMMON NORMALS: no jaundice, no petechiae and no mottling NARRATIVE SKIN EXAM: -R diabetic foot ulcer Data : 01/15/20 06:00 01/15/20 06:00 Micro: Microbiology 01/13/20 19:55 Gram Stain - Final Other Source Wound Culture - Preliminary 01/13/20 17:50 Blood Culture - Preliminary Blood NEGATIVE TO DATE 01/13/20 17:50 Blood Culture - Preliminary Blood NEGATIVE TO DATE A&P Assessment and plan (1) Diabetic foot ulcer: -noted on exam -Podiatry consult by Dr. Sin appreciated -arterial studies ordered, noted elevated inflammatory markers (CRP-8.0,ESR-62, thrombocytosis-resolved) -empiric IV antibiotics (Zosyn); add oral clindamycin for broader spectrum coverage including MRSA -MRI findings highly suspicious for osteomyelitis though limited by lack of contrast; arterial studies showing normal EPIFANIO -wound cx prelim is polymicrobial, gram stain grew rare GPC and GPRs -blood cx prelim negative -suspicious for osteomyelitis on clinical evaluation; likely chronic -LLE elevation Status: Acute Qualifiers: Diabetes mellitus type: type 1 Diabetic foot ulcer location: other Laterality: right Non-pressure ulcer stage: unspecified non-pressure ulcer stage Qualified Code(s): E10.621 - Type 1 diabetes mellitus with foot ulcer; L97.519 - Non-pressure chronic ulcer of other part of right foot with unspecified severity (2) Intractable abdominal pain: -Presents with ongoing right lower quadrant pain which has been noted on previous visits to the hospital per review of old [facility] records. Was recentl y seen at the ER in [place] for the same symptoms -Has been attributed to gastroparesis secondary to DM type I -Associated nausea/vomiting; significantly improved today and consistently tolerating oral intake without difficulty -No acute intra-abdominal abnormality noted on imaging -pelvic ultrasound unremarkable; LMP-07/2018 -Pain control, antiemetics as needed, advanced to consistent carb diet per her request -IVF hydration; wean down with improved oral intake Status: Resolved (3) Nausea & vomiting: -as noted above Status: Resolved Qualifiers: Vomiting Intractability: unspecified Vomiting type: unspecified Qualified Code(s): R11.2 - Nausea with vomiting, unspecified (4) Diabetic gastroparesis: -secondary to DM type I Status: Chronic (5) Acidosis, lactic: -likely secondary to dehydration and R diabetic foot ulcer -IVF hydration -management of R diabetic foot ulcer as noted -normalized (3.2->1.6) Status: Acute (6) Coronary artery disease: -hx of CAD s/p stenting -on ASA, Plavix; hold in case of surgery -not on statin Status: Chronic Qualifiers: Associated angina: without angina Coronary Disease-Associated Artery/Lesion type: [place] artery [place] vs. transplanted heart: [place] heart Qualified Code(s): I25.10 - Atherosclerotic heart disease of [place] coronary artery without angina pectoris (7) Diabetes mellitus type 1: -noted hx of DM type I complicated by nephropathy and neuropathy -A1c-7.5 -Accuchecks, ISS, hypoglycemia precautions -hyperglycemia without DKA Status: Chronic Qualifiers: Diabetes mellitus complication status: with other specified complication Qualified Code(s): E10.69 - Type 1 diabetes mellitus with other specified complication (8) CKD (chronic kidney disease) stage 2, GFR 60-89 ml/min: -secondary to diabetic nephropathy -baseline Cr is around 1.0 -has FIONA superimposed on CKD likely due to dehydration; FIONA improving -continue to monitor renal function, avoid nephrotoxins, renally dose meds -on IVF hydration Status: Chronic (9) Below-knee amputation of left lower extremity: -fall precautions Status: Chronic (10) Hyperlipidemia: Status: Chronic Qualifiers: Hyperlipidemia type: unspecified Qualified Code(s): E78.5 - Hyperl ipidemia, unspecified Additional A&P Information -GI ppx with PPI -DVT ppx with heparin; hold in case of surgery -Dispo: home -Code status: FULL code Attestations Medical Necessity Statement*: Patient requires hospitalization for continued IV antibiotic treatment for right diabetic foot infection, pending surgical intervention today and culture results. Time Spent in Patient Care: 16 - 35 minutes (>than 50% of time spent in counselling and/or direct pt care on unit) . 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 Code Acute Cardiopulmonary Specialist for [facility] Fwd Exam Comprehensive Diagnoses Diabetic foot ulcer E10.621; L97.519 Diabetes mellitus type: type 1 Diabetic foot ulcer location: other Laterality: right Non-pressure ulcer stage: unspecified non-pressure ulcer stage Intractable abdominal pain R10.9 Nausea & vomiting R11.2 Vomiting Intractability: unspecified Vomiting type: unspecified Diabetic gastroparesis E11.43; K31.84 Acidosis, lactic E87.2 Coronary artery disease I25.10 Associated angina: without angina Coronary Disease-Associated Artery/Lesion type: [place] artery [place] vs. transplanted heart: [place] heart Diabetes mellitus type 1 E10.69 Diabetes mellitus complication status: with other specified complication CKD (chronic kidney disease) stage 2, GFR 60-89 ml/min N18.2 Below-knee amputation of left lower extremity S88.112A Hyperlipidemia E78.5 Hyperlipidemia type: unspecified
[2020-01-15] MEDS: sodium chloride 0.9% 1,000 ML 30 ML IV (12:42)
[2020-01-15] MEDS: fentaNYL 50 mcg/mL INJ 2mL IVP ×2 (12:48→14:38)
--- NOTE | 2020-01-15 14:29 | SUR.PHASEI ---
1426 PATIENT TO PACU AT THIS TIME FROM OR. RR EVEN AND UNLABORED. PLACED ON SIMPLE MASK AT 8L, SPO2 100%. DRESSING TO RIGHT FOOT, CDI WITH WALKING BOOT IN PLACE.
--- NOTE | 2020-01-15 15:01 | SUR.PHASEI ---
1450 PATIENT TO MED SURG AT THIS TIME FROM PACU. RR EVEN AND UNLABORED. TOLERATING ICE CHIPS, DENIES NAUSEA, REQUESTING FOOD. DRESSING TO RIGHT FOOT, SMALL DRAINAGE CIRCLED AND REPORTED TO MED SURG NURSE.
--- NOTE | 2020-01-15 15:04 | SUR.PHASEI ---
1450 ANESTHESIA AWARE OF LAST DOSE OF FENTANYL. PATIENT RR EVEN AND UNLABORED. THIS NURSE REMAINED WITH PATIENT UNTIL 1503.
[2020-01-15] MEDS: sodium chloride 0.9% 1,000 ML 100 ML IV (15:29)
[2020-01-15] MEDS: cetylpyridinium Lozenge 1 EACH MUCOUS MEM (15:30)
[2020-01-15 17:03] LABS: Glucose Point of Care 148 mg/dL (70-110)
--- NOTE | 2020-01-15 19:39 | XRR_ITS ---
PROCEDURE INFORMATION: Exam: XR Right Foot Complete Exam date and time: 01/15/2020 8:08 PM Age: 39 years old Clinical indication: Other: Post op; Prior surgery; Surgery date: Post-operative (0-2 days); Surgery type: Amputation of great toe TECHNIQUE: Imaging protocol: XR Right foot. Views: 3 or more views. COMPARISON: CR XR foot RT min 3V* [id number] 01/13/2020 5:30 PM FINDINGS: Bones/joints: There is amputation of the great toe at the 1st metatarsal-phalangeal joint and amputation of the 2nd toe at the proximal interphalangeal joint. The 3rd through 5th toes are unchanged in appearance compared with 01/13/2020. Soft tissues: Normal. Vasculature: There are small vessel calcifications in the foot. XR/XR foot RT min 3V* [id number] IMPRESSION: Revision of amputation of the right 1st toe and amputation of the right 2nd toe.
--- NOTE | 2020-01-15 20:01 | P.OP_ITS ---
Operative Report Date of procedure: January 15, 2020 Pre-op Diagnosis: Chronic nonpressure ulcer right forefoot. Osteomyelitis right second toe. Osteomyelitis first proximal base right foot. Post-op diagnosis: same Post-op Findings: Devitalized bone of the distal phalanx right second toe. Devitalized bone at the remainder of the first proximal phalanx base. Devitalized soft tissue from chronic plantar wound sub-first metatarsal head right foot. Procedure Done: Wound excision and skin flap advancement for primary closure right plantar forefoot CPT code 56049 Second toe amputation at proximal interphalangeal joint right second toe CPT code 41944 Excision of tibial and fibular sesamoid right foot CPT code 59177 Implants: 2-0 Vicryl, 4-0 Vicryl, 3-0 nylon, 4-0 nylon Specimens removed/disposition: Right second toe sent to microbiology for culture and sensitivity including distal phalanx. Proximal phalanx base right hallux and sent to microbiology for culture and sensitivity. Pathology: Remainder of right second toe and tibial and fibular sesamoid sent to pathology for permanent. Surgeon: Rafael Sin D.P.M. [employer] Installer: Jaron Anesthesia: MAC Estimated blood loss: 5 mL Condition: stable Disposition: floor Brief History: Patient is a pleasant 39-year-old type I diabetic female with history of nonhealing wound since August 2021 her right plantar forefoot has history of partial right hallux amputation. Also history of below the knee amputation of the left. MRI findings as well as x-ray findings consistent with osteomyelitis at the distal phalanx right second toe, also osteomyelitis at the proximal phalanx base remaining at the right hallux. Clinically wounds probe to bone. Recommended partial right second toe amputation, wound excision with skin flap closure, excision of proximal phalanx base and sesamoids to allow for soft tissue advancement and primary closure patient is agreeable wishes to proceed. Risks include pain, bleeding, numbness, infection, failure to eradicate infection and need for further surgical debridement and/or amputation and need for antibiotic therapy and further medical management. Risks associated with transfer pressure and loss of function and as well as damage to adjacent soft tissue structures. Patient is agreeable wishes to proceed Procedure: Under mild sedation the patient was brought to the operating room and placed on the operating table in supine position. A timeout was performed. Anesthesia was then administered by the anesthesia service. Local anesthesia was injected by myself consisting of 25 cc of 0.5% Marcaine plain and a right Lara block and second ray block fashion. A well-padded pneumatic tourniquet was applied to the right ankle. Right lower extremity was then scrubbed, prepped and draped utilizing normal aseptic technique. No Esmarch bandage was utilized. Leg was elevated and tourniquet was inflated to 250 mmHg. Attention was directed to the right second toe where a fishmouth incision was carried out encompassing the right second proximal interphalangeal joint of the second toe. This was performed with a #15 blade down to bone full-thickness without skiving the edges and the right second toe was disarticulated sharply utilizing a 15 blade and pickups from the proximal interphalangeal joint this was sent to microbiology for culture and sensitivity. Incision site was flushed with saline solution. Extensor and flexor tendons were transected at their most proximal margin and subcutaneous tissue was reapproximated utilizing 2 simple interrupted sutures of 4-0 Vicryl. Skin was then closed utilizing simple interrupted sutures of 4-0 nylon with excellent skin margin apposition without tension or stress. Attention was then directed to the plantar aspect of the right forefoot where a full-thickness wound probing to bone was measured at 4.5 cm x 2.5 cm x 5.5 cm deep probes to bone. Wound was excised at its margin full-thickness down to bone wound measurements post-debridement and excision 11 cm x 3.4 cm x 0.5 cm. The remaining base of the proximal phalanx of the right hallux was sharply excised and passed from operative field this was sent to microbiology for culture and sensitivity. Incision was carried down proximally to the sesamoids which were identified both the tibial and fibular sesamoid these were sharply excised from the soft tissue attachments and sent to pathology for permanent. First metatarsal head was directly visualized appeared to be very viable with normal bright white coloring without any color changes appreciated was firm density no obvious signs of osteomyelitis appreciated. Incision site was flushed with copious amounts of sterile saline solution. There was redundant tissue that was able to be advanced from distal to proximal this was redundant soft tissue from the previous base of the right hallux this was preserved to utilize as a skin flap further planning allowed for wide excision of the previous wound full-thickness utilizing pickups and a 15 blade to curvilinear semi-converging incisions were carried out with a remaining wound that was surgically created and to healthy margins with healthy bleeding skin edges excess tissue was removed and passed from the operative field. Surgical site was then flushed and irrigated with copious amounts of sterile saline solution. Skin was then advanced from distal to proximal for coverage of the deficit and deep subcutaneous tissue and fascia were reapproximated utilizing 2-0 Vicryl. Subcutaneous tissue reapproximated utilizing 4-0 Vicryl and skin was. Approximated utilizing 3-0 Prolene skin margins were able to be reapproximated utilizing this advancement technique without tension with successful closure of the wound post excision. Incision sites were dressed with Adaptic, sterile 4 x 4's, Kerlix and Miguel A wrap followed by application of postop shoe. Tourniquet was deflated and a prompt hyperemic response was noted to the remaining distal digits of the right foot as well as at the amputation stump of the right second toe. Patient tolerated procedure and anesthesia well and was transferred to the PACU with vital signs stable and vascular status intact. Following a period of postoperative monitoring she will be transferred back to the floor to continue empiric IV antibiotics she is to be nonweightbearing to the right foot at this time.
--- NOTE | 2020-01-15 20:31 | PC.NURSE ---
Baseline Neuro Assessment Pt is A&Ox4, is able to tell me her birthday, where she is, why she is in the hospital, what year it is, who the president is could move all extremities, follows directions with no complications, speech is clear and appropriate, pupils are equal and reactive.
[2020-01-15 20:41] LABS: Glucose Point of Care 179 mg/dL (70-110)
[2020-01-15] MEDS: insulin glargine 100 units/1 mL 10 UNIT SUBCUT (21:02)
[2020-01-15] MEDS: clindamycin 150 mg Capsule 450 MG PO (21:03)
--- NOTE | 2020-01-15 21:31 | PC.NURSE ---
Med administration Administered Pt's medications, verified name and date of , Pt took medications without issues.
--- NOTE | 2020-01-15 22:39 | PC.NURSE ---
During rounding Pt requested pain medication. Rated pain in right food 8/10 and 6/10 in her abdomen. Verified name and date of before administering oxycodone 10-325mg. No other needs voiced at this time. Will continue to monitor.
--- NOTE | 2020-01-15 23:59 | PC.NURSE ---
During Pt rounding, Pt was found sitting in bed crying. Upon assessment Pt reported that her foot was throbbing and asked for dilaudid. Administered 2mg of dilaudid PO and educated Pt on trying to use the oxycodone and tylenol for pain instead of dilaudid. Pt verbalized understanding. No other needs voiced at this time, will continue to monitor.
[2020-01-16] VITALS (13 sets, daily range): BP systolic 84–141; BP diastolic 51–84; PULSE 70–84; RESP 16–20; TEMP 36.6–37.4; O2SAT 97–100
[2020-01-16] MEDS: sodium chloride 0.9% 1,000 ML 100 ML IV (01:12)
--- NOTE | 2020-01-16 01:13 | PC.NURSE ---
Pt is asleep during rounds. Per FLACC scale pain is 0/10. No other needs voiced at this time. Will continue to monitor.
--- NOTE | 2020-01-16 02:07 | PC.NURSE ---
Performed neurovascular check on right foot. Dorsalis pedis pulse was 3+ normal, extremity warm, dry, and normal color. Denies pain. Requested bedside douglas to urinate. Urinated 650ml. Urine was clear light yellow with no odor.
[2020-01-16] MEDS: piperacillin-tazobactam 3.375 GM in sodium chloride 0.9% (plus) 50 ML IV ×3 (05:03→21:14)
[2020-01-16] MEDS: oxyCODONE-APAP 5-325 mg Tablet 1 TAB PO (05:03)
[2020-01-16 05:15] LABS: Anion Gap 14.6 (5-19); Blood Urea Nitrogen 17 mg/dL (6-20); Calcium 10.1 mg/dL (8.5-10.5); Carbon Dioxide 24 mmol/L (22-29); Chloride 100 mmol/L (98-107); Glomerular Filtration Rate 49.5 mL/min (90-130); Glucose 107 mg/dL (65-115); Osmolality Calculated 275 mOsm/kg (285-295); Potassium 4.6 mmol/L (3.5-5.1); Sodium 134 mmol/L (136-145)
[2020-01-16 05:21] LABS: Basophils % 0.2 %; Eosinophils % 0.4 %; Hematocrit 32.3 % (37.0-47.0); Hemoglobin 10.3 g/dL (11.5-15.3); Lymphocytes # 0.9 10^3/uL (0.8-4.8); Lymphocytes % 9.4 %; Mean Corpuscular HGB Conc 31.9 g/dL (30.0-36.0); Mean Corpuscular Hemoglobin 30.2 pg (28.0-34.0); Mean Corpuscular Volume 94.7 fL (81-99); Mean Platelet Volume 8.3 fL (7.4-10.4); Monocytes # 0.5 10^3/uL (0.2-0.9); Monocytes % 5.9 %; Neutrophils # 7.5 10^3/uL (1.8-7.7); Neutrophils % 83.7 %; Nucleated Red Blood Cells % 0 %; Platelet Count 347 10^3/cmm (130-400); Red Blood Count 3.41 10^6/uL (4.1-5.3); Red Cell Distribution Width 13.1 % (12.1-15.1)
--- NOTE | 2020-01-16 05:46 | PC.NURSE ---
End of Shift Note Pt has required one 10-325mg oxycodone, one 5-325mg oxycodone, and one 2mg dilaudid tonight to control her pain. Initiated Q4hr neurovascular checks. All neurovascular checks have been WNL. Pt has urinated over 2000mLs tonight via bedpan. She would like to get up with PT today, spoke with her about this and told her that I would pass it along during shift report. No other needs voiced at this time. Will continue to monitor.
[2020-01-16 06:34] LABS: Glucose Point of Care 93 mg/dL (70-110)
[2020-01-16] MEDS: ondansetron 2 mg/ML SDV 2 mL 4 MG IVP ×3 (08:00→21:14)
[2020-01-16] MEDS: pantoprazole 40 mg SDV IVP (08:04)
[2020-01-16] MEDS: clindamycin 150 mg Capsule 450 MG PO ×3 (09:07→21:14)
[2020-01-16] MEDS: gabapentin 400 mg Capsule PO ×3 (09:07→21:16)
[2020-01-16] MEDS: oxyCODONE-APAP 10-325 mg Tablet 1 TAB PO ×4 (09:07→21:15)
[2020-01-16] MEDS: aspirin 81 mg EC Tablet PO (09:07)
[2020-01-16] MEDS: carvedilol 3.125 mg Tablet PO ×2 (09:07→21:15)
[2020-01-16] MEDS: D5-NS 0.45% + KCL 20 mEq 20 MEQ/1,000 ML BAG 100 MEQ IV (09:10)
[2020-01-16 12:35] LABS: Glucose Point of Care 141 mg/dL (70-110)
[2020-01-16 16:31] LABS: Glucose Point of Care 170 mg/dL (70-110)
--- NOTE | 2020-01-16 16:33 | P.PN_ITS ---
Subjective Subjective: Interval history: Patient seen earlier this AM with Dr. Sin, dressing changed at bedside, c/o pain in R foot, initial wound cx polymicrobial. OR wound cx pending. Had 2650 mL urine output overnight. Improved renal function, stable Hg. Remains afebrile, hemodynamically stable. She is POD # 1 s/p wound excision and primary closure, second toe amputation at [facility]. Medications: Reviewed: Yes Medication Review Details: Active Medications Generic Name Dose Route Start Last Admin Trade Name Freq PRN Reason Stop Dose Admin Acetaminophen 650 mg 01/13/20 19:15 Tylenol PO Q6H PRN Mild/Mod Pain Or Temp >/= 101 Albuterol Sulfate 2.5 mg 01/15/20 12:00 Albuterol INHALATION ONCE PRN WHEEZING Aspirin 81 mg 01/14/20 09:00 01/16/20 09:07 Aspirin Ec PO 81 mg DAILY DAWSON Administration Carvedilol 3.125 mg 01/13/20 19:15 01/16/20 09:07 Coreg PO 3.125 mg Q12H DAWSON Administration Clindamycin HCl 450 mg 01/15/20 15:00 01/16/20 14:52 Cleocin PO 450 mg TID DAWSON Administration Protocol Dextrose 25 ml 01/13/20 19:15 D50w IVP ONCE PRN hypoglycemia prot ocol Protocol Dextrose 50 ml 01/13/20 19:15 D50w IVP PRN PRN hypoglycemia prot ocol Protocol Famotidine 20 mg 01/15/20 12:00 Pepcid Inj IVP ONCE PRN HEARTBURN Fentanyl 50 mcg 01/15/20 12:00 01/15/20 12:48 Sublimaze IVP 50 mcg Q10M PRN Administration Preop Pain Fentanyl 100 mcg 01/15/20 12:00 Sublimaze IVP ONCE PRN Per anesthesia fo r block Gabapentin 400 mg 01/13/20 21:00 01/16/20 14:52 Neurontin PO 400 mg TID DAWSON Administration Glucagon 1 mg 01/13/20 19:15 Glucagen IM ONCE PRN Adult Acute Hypog lycemia Prot. Protocol Heparin Sodium (Be ef Lung) 5,000 unit 01/13/20 19:30 01/14/20 08:26 Heparin SUBCUT 5,000 unit Q12H DAWSON Administration Hydralazine HCl 10 mg 01/13/20 19:15 Apresoline IVP Q4H PRN SYSTOLIC BLOOD IL ESSURE Hydromorphone HCl 2 mg 01/13/20 19:15 01/15/20 23:54 Dilaudid Tab PO 2 mg Q6H PRN Administration SEVERE PAIN Potassium Chloride /Dextrose/Sod Cl 20 meq in 1,000 m ls @ 100 mls/hr 01/13/20 19:30 01/16/20 09:10 D5-Ns 0.45% + Scottie l 20 Meq IV 100 mls/hr .Q10H DAWSON Administration Piperacillin Sod/T azobactam 50 mls @ 12.5 mls /hr 01/13/20 20:00 01/16/20 12:14 Sod 3.375 gm/ So dium Chloride IV 12.5 mls/hr Q8H DAWSON Administration Protocol Dextrose 500 mls @ 100 mls /hr 01/13/20 19:15 D5w IV ONCE PRN Adult Acute Hypog lycemia Prot Protocol Sodium Chloride 500 mls @ 999 mls /hr 01/15/20 14:37 Sodium Chloride 0.9% IV .Q31M PRN HYPOTENSION Insulin Aspart 0 unit 01/13/20 19:15 01/16/20 12:14 Novolog SUBCUT 2 unit WM&BEDTIME DAWSON Administration Protocol Insulin Glargine 10 unit 01/13/20 21:00 01/15/20 21:02 Lantus SUBCUT 10 unit BEDTIME DAWSON Administration Ipratropium Bromid e 0.5 mg 01/15/20 12:00 Atrovent Neb INHALATION ONCE PRN WHEEZING Lidocaine HCl 1 ml 01/15/20 12:00 Lidocaine 2% Vis cous TOPICAL PRN PRN Anesthetic prior to IV start Metoclopramide HCl 10 mg 01/15/20 12:00 Reglan IVP ONCE PRN N/V if zofran ine ffective Midazolam HCl 2 mg 01/15/20 12:00 Versed IVP Q5M PRN Preop Anxiety Midazolam HCl 5 mg 01/15/20 12:00 Versed IVP ONCE PRN Per anesthesia fo r block Ondansetron HCl 4 mg 01/13/20 21:02 01/16/20 14:52 Zofran IVP 4 mg Q6H PRN Administration NAUSEA AND VOMITI NG Ondansetron HCl 4 mg 01/15/20 12:00 Zofran IVP Q5M PRN NAUSEA AND VOMITI NG Ondansetron HCl 4 mg 01/15/20 14:37 Zofran IVP Q15M PRN Nausea/Vomiting P ACU PHASE II Oxycodone/Acetamin ophen 1 tab 01/13/20 19:15 01/16/20 05:03 Percocet 5-325 M g PO 1 tab Q4H PRN Administration MODERATE PAIN Oxycodone/Acetamin ophen 1 tab 01/13/20 20:53 01/16/20 13:42 Percocet 10-325 Mg PO 1 tab Q4H PRN Administration MODERATE PAIN Pantoprazole Sodiu m 40 mg 01/13/20 19:15 01/16/20 08:04 Protonix IVP 40 mg Q12H DAWSON Administration Scopolamine 1 patch 01/15/20 12:00 Transderm-Scop TRANSDERMA ONCE PRN Nausea/ Vomiting Prophylaxis morphine Allergy (Verified 01/13/20 11:53) ALGY-Difficulty Breathing Vitals/I&O/Wt Last Vital Signs Temp 98.0 F 01/16/20 16:00 Pulse 70 01/16/20 16:00 Resp 18 01/16/20 16:00 BP 106/68 01/16/20 16:00 Pulse Ox 100 01/16/20 16:00 01/16/20 01/16/20 01/16/20 06:59 14:59 22:59 Intake Total 1021.667 / 2551.667 50 / 50 Output Total 2100 / 4655 1000 / 1000 Balance -1078.333 / -2103.333 -950 / -950 Weight last 48 hrs Weight 66.361 kg Physical Exam Const: COMMON NORMALS: no acute distress, patient oriented x3 and alert GENERAL APPEARANCE: cooperative and appears older than stated age; not comfortable ORIENTATION/CONSCIOUSNESS: Yes awake HENMT: COMMON NORMALS: normocephalic, atraumatic, hearing grossly normal bilaterally and moist oral mucous membranes HEAD & SCALP: normocephalic and atraumatic Eye: COMMON NORMALS: Equal, round and reactive pupils present, EOMs intact bilaterally and conjunctivae normal CONJUNCTIVA: Yes conjunctivae normal PUPIL: Yes Equal, round and reactive pupils present Neck/C-Spine: COMMON NORMALS: full ROM GENERAL: Yes normal visual inspection and Yes trachea midline Chest: CHEST: Yes Symmetrical chest wall rise Resp: COMMON NORMALS: normal respiratory effort, No retractions, No use of accessory muscles and clear to auscultation bilaterally EFFORT & INSPECTION: Yes able to speak in complete sentences, Yes symmetric chest movement and No tachypneic AUSCULTATION: clear to auscultation bilaterally OTHER: -on RA Cardio: COMMON NORMALS: regular rate, regular rhythm, S1 normal heart sound present, S2 normal heart sound present and No murmurs present (Cardio) RATE: regular rate RHYTHM: regular rhythm HEART SOUNDS: S1 normal heart sound present and S2 normal heart sound present GI: COMMON NORMALS: Normal to inspection, nondistended, normoactive bowel sounds present and Soft to palpation INSPECTION: Yes scar (vertical, crossing umbilicus) PALPATION: Yes Soft to palpation, Yes Tenderness to palpation present (GI), No Guarding due to palpation present (GI) and No Rigid due to palpation Extremity: NARRATIVE EXTREMITY EXAM: -s/p L BKA; stump looks appropriate -RLE: bulky dressing in place, minimal strikethrough; sutures intact, incisions healing appropriately, minimal bleeding between consecutive sutures from 2nd digit Neuro: COMMON NORMALS: patient oriented x3, moves all extremities, no focal motor deficits and no sensory deficits noted SENSORIUM/ORIENTATION: Yes alert GAIT: Yes Other gait observations present (L BKA) Psych: COMMON NORMALS: mental status grossly normal, Normal thought process present, cooperative and speech normal ACTIVITY/MOTOR BEHAVIOR: Yes restless (due to pain) SPEECH: Yes normal speech MOOD & AFFECT: Yes Flat affect present THOUGHT PROCESS: Normal thought process present Skin: COMMON NORMALS: no jaundice, no petechiae and no mottling Data : 01/16/20 04:49 01/16/20 04:49 Micro: Microbiology 01/13/20 19:55 Gram Stain - Final Other Source Wound Culture - Preliminary Gram Negative Rods Gram Negative Rods#2 Gram Negative Rods#3 Staphylococcus species Streptococcus species 01/15/20 Unknown Gram Stain - Final Toe - #2 01/15/20 Unknown Gram Stain - Final Toe - #1 A&P Assessment and plan (1) Diabetic foot ulcer: -noted on exam -Podiatry consult by Dr. Sin appreciated -arterial studies ordered, noted elevated inflammatory markers (CRP-8.0,ESR-62, thrombocytosis-resolved) -empiric IV antibiotics (Zosyn); add oral clindamycin for broader spectrum coverage including MRSA -MRI findings highly suspicious for osteomyelitis though limited by lack of contrast; arterial studies showing normal EPIFANIO -wound cx prelim is polymicrobial, gram stain grew rare GPC and GPRs. Wound cx sent from OR pending -blood cx prelim negative -suspicious for osteomyelitis on clinical evaluation; likely chronic -LLE elevation -POD # 1 s/p wound excision and skin flap advancement for primary closure of right plantar forefoot, second toe amputation at PIP right second toe Status: Acute Qualifiers: Diabetic foot ulcer location: other Diabetes mellitus type: type 1 L aterality: right Non-pressure ulcer stage: unspecified non-pressure ulcer stage Qualified Code(s): E10.621 - Type 1 diabetes mellitus with foot ulcer; L97.519 - Non-pressure chronic ulcer of other part of right foot with unspecified sev erity (2) Intractable abdominal pain: -Presents with ongoing right lower quadrant pain which has been noted on previous visits to the hospital per review of old [facility] records. Was recently seen at the ER in [place] for the same symptoms -Has been attributed to gastroparesis secondary to DM type I -Associated nausea/vomiting; significantly improved today and consistently tolerating oral intake without difficulty -No acute intra-abdominal abnormality noted on imaging -pelvic ultrasound unremarkable; LMP-07/2018 -Pain control, antiemetics as needed, advanced to consistent carb diet per her request -IVF hydration; wean down with improved oral intake Status: Resolved (3) Nausea & vomiting: -as noted above Status: Resolved Qualifiers: Vomiting Intractability: unspecified Vomiting type: unspecified Qualified Code(s): R11.2 - Nausea with vomiting, unspecified (4) Diabetic gastroparesis: -secondary to DM type I Status: Chronic (5) Acidosis, lactic: -likely secondary to dehydration and R diabetic foot ulcer -IVF hydration -management of R diabetic foot ulcer as noted -normalized (3.2->1.6) Status: Acute (6) Coronary artery disease: -hx of CAD s/p stenting -on ASA, Plavix; hold in case of surgery -not on statin Status: Chronic Qualifiers: Coronary Disease-Associated Artery/Lesion type: false pass artery [place] vs. transplanted heart: false pass heart Associated angina: without angina Qualified Code(s): I25.10 - Atherosclerotic heart disease of false pass coronary artery without angina pectoris (7) Diabetes mellitus type 1: -noted hx of DM type I complicated by nephropathy and neuropathy -A1c-7.5 -Accuchecks, ISS, hypoglycemia precautions -hyperglycemia without DKA Status: Chronic Qualifiers: Diabetes mellitus complication status: with other specified complication Qualified Code(s): E10.69 - Type 1 diabetes mellitus with other specified complication (8) CKD (chronic kidney disease) stage 2, GFR 60-89 ml/min: -secondary to diabetic nephropathy -baseline Cr is around 1.0 -has FIONA superimposed on CKD likely due to dehydration; FIONA improving -continue to monitor renal function, avoid nephrotoxins, renally dose meds -on IVF hydration Status: Chronic (9) Below-knee amputation of left lower extremity: -fall precautions Status: Chronic (10) Hyperlipidemia: Status: Chronic Qualifiers: Hyperlipidemia type: unspecified Qualified Code(s): E78.5 - Hyperlipidemia, unspecified Additional A&P Information -GI ppx with PPI -DVT ppx with heparin -Dispo: home -Code status: FULL code Attestations Medical Necessity Statement*: Patient requires hospitalization for continued IV antibiotic treatment pending wound culture results. Time Spent in Patient Care: 16 - 35 minutes (>than 50% of time spent in counselling and/or direct pt care on unit) . 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 Code Acute Stud Master/Mistress for g Fwd Diagnoses Diabetic foot ulcer E10.621; L97.519 Diabetic foot ulcer location: other Diabetes mellitus type: type 1 Laterality: right Non-pressure ulcer stage: unspecified non-pressure ulcer stage Intractable abdominal pain R10.9 Nausea & vomiting R11.2 Vomiting Intractability: unspecified Vomiting type: unspecified Diabetic gastroparesis E11.43; K31.84 Acidosis, lactic E87.2 Coronary artery disease I25.10 Coronary Disease-Associated Artery/Lesion type: false pass artery [place] vs. transplanted heart: false pass heart Associated angina: without angina Diabetes mellitus type 1 E10.69 Diabetes mellitus complication status: with other specified complication CKD (chronic kidney disease) stage 2, GFR 60-89 ml/min N18.2 Below-knee amputation of left lower extremity S88.112A Hyperlipidemia E78.5 Hyperlipidemia type: unspecified
[2020-01-16 21:07] LABS: Glucose Point of Care 160 mg/dL (70-110)
[2020-01-16] MEDS: heparin 5,000 unit/mL INJ 1 mL 5000 UNIT SUBCUT (21:14)
[2020-01-16] MEDS: insulin glargine 100 units/1 mL 10 UNIT SUBCUT (21:16)
[2020-01-16] MEDS: pantoprazole DR 40 mg Tablet PO (21:16)
--- NOTE | 2020-01-16 22:32 | P.PN_ITS ---
Subjective Subjective: Interval history: 1 day postop, patient endorsing right foot pain. Very minimal strikethrough bleeding. Denies any other acute events at this time. Vitals/I&O/Wt Last Vital Signs Temp 98.5 F 01/16/20 19:01 Pulse 75 01/16/20 19:01 Resp 18 01/16/20 21:15 BP 90/59 01/16/20 19:01 Pulse Ox 100 01/16/20 21:15 01/16/20 01/16/20 01/16/20 06:59 14:59 22:59 Intake Total 1021.667 / 2551.667 50 / 50 290 / 340 Output Total 2100 / 4655 1000 / 1000 500 / 1500 Balance -1078.333 / -2103.333 -950 / -950 -210 / -1160 Weight last 48 hrs Weight 146 lb 4.8 oz Physical Exam Narrative: EXAM NARRATIVE: GENERAL: Patient is alert and oriented ?3 and in no acute distress. The following is a focused right lower extremity exam. VASCULAR: Dorsalis pedis and posterior tibial arteries palpable +2. Capillary refill time less than 3 seconds to the distal remaining toes right foot. Calf is supple and nontender proximally and distally. Some pedal hair growth is present. Focal edema at the right second toe distally. NEUROLOGICAL: Protective sensation intact 0/10 sites, tested with Corn Michaela monofilament to bilateral feet. DERMATOLOGICAL: Incision site at right second toe and sub-first metatarsal head well coapted with sutures intact, no purulent drainage, no veronique-incision erythema, no dehiscence, no proximal lymphangitic streaking, no malodor present. MUSCULOSKELETAL: Status post partial right second toe amputation. Status post left below knee amputation. Status post partial right hallux amputation. Reducible hammertoe deformities 2 through 5 right foot. Ankle joint dorsiflexion 5 degrees beyond neutral. Muscle strength 5 out of 5 in all 3 cardinal planes to the right foot and ankle. Data : 01/16/20 04:49 01/16/20 04:49 Micro: Microbiology 01/13/20 19:55 Gram Stain - Final Other Source Wound Culture - Preliminary Gram Negative Rods Gram Negative Rods#2 Gram Negative Rods#3 Staphylococcus species Streptococcus species Group g streptococcus 01/15/20 Unknown Gram Stain - Final Toe - #2 05/29/20 Unknown Gram Stain - Final Toe - #1 A&P Additional A&P Information 1 day status post partial right second toe amputation, excision of sesamoids, right, resection of remaining right hallux proximal phalanx and wound excision with primary closure. Patient doing well postoperatively. Cultures significant for strep species, strep staph species, gram-negative rods. Intraoperative cultures pending. Wound culture taken on the floor post debridement on first encounter January 14, 2020 were not able to be located in the lab. Patient is stable at this time is afebrile no leukocytosis. She is nonweightbearing to the right lower extremity, may heel touch for transfers. Dressing change performed this morning, podiatry will follow. Planning on 2 weeks of oral antibiotics on discharge, Ortho heel wedge for offloading and follow-up in podiatry clinic within 1 week of discharge. Attestations Medical Necessity Statement*: Diabetic foot infection right foot with osteomyelitis 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 Code Acute Attendance Secretary for Kim Mitchell
--- NOTE | 2020-01-16 23:23 | PC.NURSE ---
Patient's blood pressure 84/51. Nurse been notified.
[2020-01-17] VITALS (12 sets, daily range): BP systolic 96–132; BP diastolic 58–85; PULSE 77–88; RESP 17–20; TEMP 36.8–37.5; O2SAT 97–100; BMI 21.7
[2020-01-17] MEDS: oxyCODONE-APAP 10-325 mg Tablet 1 TAB PO ×3 (01:10→13:19)
[2020-01-17] MEDS: piperacillin-tazobactam 3.375 GM in sodium chloride 0.9% (plus) 50 ML IV ×2 (03:22→11:57)
[2020-01-17] MEDS: ondansetron 2 mg/ML SDV 2 mL 4 MG IVP ×2 (03:22→12:00)
--- NOTE | 2020-01-17 06:23 | PC.NURSE ---
END OF SHIFT NOTE Pt is alert and oriented x4, on RA, required percocet 2 times and dilaudid 1 time and zofran 2 times throughout the night, was able to get on bedside commode by herself, no falls. Per FLACC scale current pain rating is 0/10. No other needs voiced.
[2020-01-17 06:38] LABS: Glucose Point of Care 119 mg/dL (70-110)
[2020-01-17] MEDS: clindamycin 150 mg Capsule 450 MG PO ×2 (08:19→15:34)
[2020-01-17] MEDS: aspirin 81 mg EC Tablet PO (08:20)
[2020-01-17] MEDS: gabapentin 400 mg Capsule PO ×2 (08:20→15:34)
[2020-01-17] MEDS: heparin 5,000 unit/mL INJ 1 mL 5000 UNIT SUBCUT (08:20)
[2020-01-17] MEDS: pantoprazole DR 40 mg Tablet PO ×2 (08:21→17:46)
[2020-01-17] MEDS: carvedilol 3.125 mg Tablet PO (08:30)
--- NOTE | 2020-01-17 12:19 | PM.DCS ---
Discharge Providers Date of Admission: 01/13/20 17:24 Date of Discharge: January 17, 2020 Attending Provider at Admission: Lamar Suarez MD Attending Provider at Discharge: Lamar Suarez MD Primary Care Provider: Kentrell Herring MD Diagnoses at Discharge Discharge Diagnosis (1) Diabetic foot ulcer: Status: Acute Problem details: -noted on exam -Podiatry consult by Dr. Sin appreciated -arterial studies ordered, noted elevated inflammatory markers (CRP-8.0,ESR-62, thrombocytosis-resolved) -empiric IV antibiotics (Zosyn); add oral clindamycin for broader spectrum coverage including MRSA -MRI findings highly suspicious for osteomyelitis though limited by lack of contrast; arterial studies showing normal EPIFANIO -wound cx prelim is polymicrobial, gram stain grew rare GPC and GPRs. Wound cx sent from OR pending -blood cx prelim negative -suspicious for osteomyelitis on clinical evaluation; likely chronic -LLE elevation -POD # 2 s/p wound excision and skin flap advancement for primary closure of right plantar forefoot, second toe amputation at PIP right second toe Qualifiers: Diabetic foot ulcer location: other Diabetes mellitus type: type 1 Laterality: right Non-pressure ulcer stage: unspecified non-pressure ulcer stage Qualified Code(s): E10.621 - Type 1 diabetes mellitus with foot ulcer; L97.519 - Non-pressure chronic ulcer of other part of right foot with unspecified severity (2) Intractable abdominal pain: Status: Resolved Problem details: -Presented with ongoing right lower quadrant pain which has been noted on previous visits to the hospital per review of old [facility] records. Was recently seen at the ER in [place] for the same symptoms -Has been attributed to gastroparesis secondary to DM type I -Associated nausea/vomiting; resolved and consistently tolerating oral intake without difficulty -No acute intra-abdominal abnormality noted on imaging -pelvic ultrasound unremarkable; LMP-07/2018 -Pain control, antiemetics as needed, advanced to consistent carb diet per her request -off IVF hydration (3) Nausea & vomiting: Status: Resolved Qualifiers: Vomiting Intractability: unspecified Vomiting type: unspecified Qualified Code(s): R11.2 - Nausea with vomiting, unspecified (4) Diabetic gastroparesis: Status: Chronic Problem details: -secondary to DM type I (5) Acidosis, lactic: Status: Resolved Problem details: -likely secondary to dehydration and R diabetic foot ulcer -IVF hydration -management of R diabetic foot ulcer as noted -normalized (3.2->1.6) (6) Coronary artery disease: Status: Chronic Problem details: -hx of CAD s/p stenting -on ASA, Plavix; hold in case of surgery -not on statin Qualifiers: Coronary Disease-Associated Artery/Lesion type: [place] artery [place] vs. transplanted heart: [place] heart Associated angina: without angina Qualified Code(s): I25.10 - Atherosclerotic heart disease of [place] coronary artery without angina pectoris (7) Diabetes mellitus type 1: Status: Chronic Problem details: -noted hx of DM type I complicated by nephropathy and neuropathy -A1c-7.5 -Accuchecks, ISS, hypoglycemia precautions -hyperglycemia without DKA Qualifiers: Diabetes mellitus complication status: with other specified complication Qualified Code(s): E10.69 - Type 1 diabetes mellitus with other specified complication (8) CKD (chronic kidney disease) stage 2, GFR 60-89 ml/min: Status: Chronic Problem details: -secondary to diabetic nephropathy -baseline Cr is around 1.0 -has FIONA superimposed on CKD likely due to dehydration; FIONA improving -continue to monitor renal function, avoid nephrotoxins, renally dose meds -off IVF hydration (9) Below-knee amputation of left lower extremity: Status: Chronic (10) Hyperlipidemia: Status: Chronic Qualifiers: Hyperlipidemia type: unspecified Qualified Code(s): E78.5 - Hyperlipidemia, unspecified Reason for Visit Reason for Visit: Reason For Visit: N/V, LOWER ABD PAIN Hospital Course Hospital Course: Patient was admitted to the medical surgical floor and started on broad-spectrum IV antibiotic coverage. Due to noted right diabetic foot ulcer, podiatry was consulted and Dr. Sin was gracious enough to see the patient. Wound cultures obtained and MRI ordered showing findings highly suspicious for osteomyelitis. Patient was taken to the OR by Dr. Sin for wound excision and primary closure as well as second toe amputation at PIP joint, she is post-op day #2. Surgery was uncomplicated and patient has done well post-op save for pain control issues. Blood cultures have been negative, initial wound cultures obtained at bedside are polymicrobial, wound cultures obtained from the OR are pending though Gram stain specifically for specimen obtained from 2nd toe is also polymicrobial. Dr. Sin has changed dressings at bedside following surgery with wounds noted to be healing appropriately. Patient is an insulin dependent diabetic, and blood glucose has been monitored and managed appropriately. She had initially presented with complaints of lower abdominal pain, nausea and vomiting all of which has resolved, patient is able to tolerate oral intake without difficulty, has been voiding very well. She will be discharged home with oral antibiotics as osteomyelitis is a likely chronic and she has already had surgical intervention. She has been provided with supplies as patient is uninsured. She is to follow-up with Dr. Sin in 1 week and with her primary care provider within 1 week. She is counseled on need to be compliant with diabetes management as well as complete antibiotic course, and need to seek medical attention immediately should she notice increased drainage from her wound, fever/chills. Discharge Summary: -Patient to follow up with primary care physician within 1 week -Patient to follow up with Dr. Sin in 1 week for post-op wound check Physical Exam Const: COMMON NORMALS: no acute distress, patient oriented x3 and alert GENERAL APPEARANCE: cooperative and appears older than stated age; not comfortable ORIENTATION/CONSCIOUSNESS: Yes awake HENMT: COMMON NORMALS: normocephalic, atraumatic, hearing grossly normal bilaterally and moist oral mucous membranes HEAD & SCALP: normocephalic and atraumatic Eye: COMMON NORMALS: Equal, round and reactive pupils present, EOMs intact bilaterally and conjunctivae normal CONJUNCTIVA: Yes conjunctivae normal PUPIL: Yes Equal, round and reactive pupils present Neck/C-Spine: COMMON NORMALS: full ROM GENERAL: Yes normal visual inspection and Yes trachea midline Chest: CHEST: Yes Symmetrical chest wall rise Resp: COMMON NORMALS: normal respiratory effort, No retractions, No use of accessory muscles and clear to auscultation bilaterally EFFORT & INSPECTION: Yes able to speak in complete sentences, Yes symmetric chest movement and No tachypneic AUSCULTATION: clear to auscultation bilaterally OTHER: -on RA Cardio: COMMON NORMALS: regular rate, regular rhythm, S1 normal heart sound present, S2 normal heart sound present and No murmurs present (Cardio) RATE: regular rate RHYTHM: regular rhythm HEART SOUNDS: S1 normal heart sound present and S2 normal heart sound present GI: COMMON NORMALS: Normal to inspection, nondistended, normoactive bowel sounds present and Soft to palpation INSPECTION: Yes scar (vertical, crossing umbilicus) PALPATION: Yes Soft to palpation, Yes Tenderness to palpation present (GI), No Guarding due to palpation present (GI) and No Rigid due to palpation Extremity: NARRATIVE EXTREMITY EXAM: -s/p L BKA; stump looks appropriate -RLE: bulky dressing in place, minimal strikethrough; sutures intact, incisions healing appropriately, minimal bleeding between consecutive sutures from 2nd digit Neuro: COMMON NORMALS: patient oriented x3, moves all extremities, no focal motor deficits and no sensory deficits noted SENSORIUM/ORIENTATION: Yes alert GAIT: Yes Other gait observations present (L BKA) Psych: COMMON NORMALS: mental status grossly normal, Normal thought process present, cooperative and speech normal ACTIVITY/MOTOR BEHAVIOR: Yes restless (due to pain) SPEECH: Yes normal speech MOOD & AFFECT: Yes Flat affect present THOUGHT PROCESS: Normal thought process present Skin: COMMON NORMALS: no jaundice, no petechiae and no mottling Discharge Data Data Completed and Pending: Completed Studies During Hospitalization Category Date Time Status CT abdomen pelvis w con* [id number] Urge nt Cat Scan 01/13/20 12:04 Completed XR foot RT min 3V * [id number] Routine Exams 01/15/20 19:39 Completed XR foot RT min 3V * [id number] Urgent Exams 01/13/20 17:04 Completed MR foot RT wo con * [id number] Routine MRI 01/14/20 20:07 [place] [id number] Rout ine Ultrasound 01/14/20 06:00 Completed US transvaginal 7 [id number] Urgent Ultrasound 01/13/20 16:19 Completed Pending at discharge Category Date Time Status Blood Culture Sta t Lab 01/13/20 17:50 Results Tissue Culture an d Gram Stain Erin ne Lab 01/15/20 Results Tissue Culture an d Gram Stain Erin ne Lab 01/15/20 Results Wound Culture Rou deyvi Lab 01/15/20 14:05 Uncollected Wound Culture and Gram Stain Stat Lab 01/13/20 19:55 Results Pathology: Surgic al [PTH] Routine Pth 01/15/20 14:21 Ordered Labs from last 24 hours 01/17/20 01/16/20 01/16/20 06:29 20:44 16:06 POC Glucose 119 160 170 01/16/20 11:39 POC Glucose 141 Vitals: Last Vital Signs Temp 98.5 F 01/17/20 11:07 Pulse 77 01/17/20 11:07 Resp 20 H 05/31/20 11:07 BP 96/58 01/17/20 11:07 Pulse Ox 97 01/17/20 11:07 Discharge Plan Discharge Patient Disposition: Home, Self-Care Condition: Stable Prescriptions: New clindamycin HCl 150 mg Capsule 450 mg PO TID 14 Days Qty: 126 RF: 0 oxycodone-acetaminophen 10-325 mg Tablet 1 tab PO Q4H PRN (Reason: Moderate Pain) Qty: 30 RF: 0 pantoprazole 40 mg Tablet,Delayed Release (Dr/Ec) 40 mg PO BID 30 Days Qty: 60 RF: 0 Continued gabapentin 400 mg Capsule 400 mg PO TID RF: 0 Plavix 75 mg Tablet 75 mg PO DAILY RF: 0 Aspir-81 81 mg Tablet,Delayed Release (Dr/Ec) 81 mg PO DAILY RF: 0 carvedilol 3.125 mg tablet 3.125 mg PO Q12H RF: 0 Humalog U-100 Insulin 100 unit/mL Solution See Rx Instructions .ROUTE .COMPLEX RF: 0 lisinopril 2.5 mg tablet 2.5 mg PO DAILY RF: 0 Lantus Solostar U-100 Insulin 100 unit/mL (3 mL) Insulin Pen 10 unit SUBCUT BEDTIME RF: 0 Zofran 4 mg Tablet 4 mg PO Q6H PRN (Reason: Nausea) Qty: 30 RF: 0 Discharge Orders: Discharge Order (Routine); Ordered 01/17/20 Ordered By: Lamar Suarez Referrals: Kentrell Herring MD [Primary Care Provider] - 4-7 days (Post hospital discharge follow up. You will need to call Saturday and make a hospital follow up appointment with Dr. Herring in 4-7 days.) Rafael Sin DPM [Physician] - (Post-op follow up. You will need to call Saturday and make a follow up appointment with Dr. Sin as soon as they can get you in.) Discharge Diet: Diabetic Discharge Activity: Resume usual activity Discharge Attestations Time Spent in Discharge Care*: greater than 30 min Specific Discharge Activities: Specific discharge activities: educating patient, discussing with renal case manager/social workers/dc planners, documenting/other paperwork and evaluating patient/reviewing data Status at Discharge: Cognitive status at discharge: cognitively intact, Behavioral status at discharge: cooperative, Functional status at discharge: other assisted ambulation Overall status at discharge: patient has a new baseline Quality Metrics Clinical Quality Measures During this hospital stay, did patient experience: None 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 Code Acute Green Plumber for g Fwd Diagnoses Diabetic foot ulcer E10.621; L97.519 Diabetic foot ulcer location: other Diabetes mellitus type: type 1 Laterality: right Non-pressure ulcer stage: unspecified non-pressure ulcer stage Intractable abdominal pain R10.9 Nausea & vomiting R11.2 Vomiting Intractability: unspecified Vomiting type: unspecified Diabetic gastroparesis E11.43; K31.84 Acidosis, lactic E87.2 Coronary artery disease I25.10 Coronary Disease-Associated Artery/Lesion type: [place] artery [place] vs. transplanted heart: [place] heart Associated angina: without angina Diabetes mellitus type 1 E10.69 Diabetes mellitus complication status: with other specified complication CKD (chronic kidney disease) stage 2, GFR 60-89 ml/min N18.2 Below-knee amputation of left lower extremity S88.112A Hyperlipidemia E78.5 Hyperlipidemia type: unspecified
--- NOTE | 2020-01-17 19:35 | P.PN_ITS ---
Subjective Subjective: Interval history: 2 days postop, patient endorsing right foot pain. Very minimal strikethrough bleeding. Denies any other acute events at this time. Vitals/I&O/Wt Last Vital Signs Temp 98.2 F 01/17/20 16:00 Pulse 81 01/17/20 16:00 Resp 18 01/17/20 16:35 BP 132/85 01/17/20 16:00 Pulse Ox 100 01/17/20 16:00 01/17/20 01/17/20 01/17/20 06:59 14:59 22:59 Intake Total 50 / 390 1510 / 1510 290 / 1800 Output Total 1400 / 2900 Balance -1350 / -2510 1510 / 1510 290 / 1800 Weight last 48 hrs Weight 147 lb 6 oz Weight 147 lb 6 oz Physical Exam Narrative: EXAM NARRATIVE: GENERAL: Patient is alert and oriented ?3 and in no acute distress. The following is a focused right lower extremity exam. VASCULAR: Dorsalis pedis and posterior tibial arteries palpable +2. Capillary refill time less than 3 seconds to the distal remaining toes right foot. Calf is supple and nontender proximally and distally. Some pedal hair growth is present. Focal edema at the right second toe distally. NEUROLOGICAL: Protective sensation intact 0/10 sites, tested with [place] Michaela monofilament to bilateral feet. DERMATOLOGICAL: Incision site at right second toe and sub-first metatarsal head well coapted with sutures intact, no purulent drainage, no veronique-incision erythema, no dehiscence, no proximal lymphangitic streaking, no malodor present. MUSCULOSKELETAL: Status post partial right second toe amputation. Status post left below knee amputation. Status post partial right hallux amputation. Reducible hammertoe deformities 2 through 5 right foot. Ankle joint dorsiflexion 5 degrees beyond neutral. Muscle strength 5 out of 5 in all 3 cardinal planes to the right foot and ankle. Data : 01/16/20 04:49 01/16/20 04:49 Micro: Microbiology 01/13/20 19:55 Gram Stain - Final Other Source Wound Culture - Preliminary Klebsiella oxytoca Escherichia coli esbl Gram Negative Rods#3 Methicillin Resis Staph Aureus Enterococcus faecalis Group g streptococcus 01/15/20 Unknown Gram Stain - Final Toe - #2 Tissue Culture - Preliminary Staphylococcus species 01/15/20 Unknown Gram Stain - Final Toe - #1 Tissue Culture - Preliminary A&P Additional A&P Information 2 days status post partial right second toe amputation, excision of sesamoids, right, resection of remaining right hallux proximal phalanx and wound excision with primary closure. Patient doing well postoperatively. Cultures significant for strep species, strep staph species, gram-negative rods. Intraoperative cultures pending. Patient is stable at this time is afebrile no leukocytosis. She is nonweightbearing to the right lower extremity, may heel touch for transfers. Planning on 2 weeks of oral antibiotics on discharge, Ortho heel wedge for offloading and follow-up in podiatry clinic within 1 week of discharge. Patient okay for discharge from podiatry standpoint will follow-up next week in clinic. Planning on leaving sutures in place for 3 weeks. Attestations Medical Necessity Statement*: Diabetic foot infection with osteomyelitis right. 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 Code Acute Pottery Machine Operator for Kim Mitchell
[2020-01-17 21:40] LABS: Glucose Point of Care 159 mg/dL (70-110)
[2020-01-17 21:40] LABS: Glucose Point of Care 193 mg/dL (70-110)
--- NOTE | 2020-01-18 13:43 | PC.SOCIAL ---
On Oxycodone/ Acetaminophen pharmacy can only dispens 1 every 6 hrs per guidelines for a [address] Newton made aware.
== END 2020-01-17 19:03 | disposition home or self-care (01) | DRG 617 ==
LOC: ER 18:33 → MEDSURG 18:39
PROVIDERS: Family Medicine; Podiatrist Foot & Ankle Surgery; Admitting Provider Family Medicine; PCP Family Medicine; Visit Provider Family Medicine
PROC: 0Y6R0Z1 Detachment at Right 2nd Toe, High, Open Approach (ICD-10-PCS; principal; 2020-01-15 13:00)
PROC: 0Y6R0Z1 Detachment at Right 2nd Toe, High, Open Approach (ICD-10-PCS; CPT 28140; 2020-01-15 13:00)
DX: E10.69 Type 1 diabetes mellitus with other specified complication (principal); M86.671 Other chronic osteomyelitis, right ankle and foot; E10.65 Type 1 diabetes mellitus with hyperglycemia; E10.22 Type 1 diabetes mellitus with diabetic chronic kidney disease; E10.40 Type 1 diabetes mellitus with diabetic neuropathy, unspecified; E10.43 Type 1 diabetes mellitus with diabetic autonomic (poly)neuropathy; I12.9 Hypertensive chronic kidney disease with stage 1 through stage 4 chronic kidney disease, or unspecified chronic kidney disease; K31.84 Gastroparesis; N18.2 Chronic kidney disease, stage 2 (mild); Z89.512 Acquired absence of left leg below knee; I25.10 Atherosclerotic heart disease of native coronary artery without angina pectoris; Z95.5 Presence of coronary angioplasty implant and graft; Z87.891 Personal history of nicotine dependence; Z93.1 Gastrostomy status; E86.0 Dehydration; E78.5 Hyperlipidemia, unspecified; B95.62 Methicillin resistant Staphylococcus aureus infection as the cause of diseases classified elsewhere
CPT/HCPCS: 12345; 36415; 36416; 73630; 73718; 74177; 76830; 80048; 80053; 80306; 80307; 81003; 81025; 82550; 82962; 83036; 83605; 83690; 85025; 85651; 86140; 87040; 87070; 87077; 87176; 87186; 87205; 88305; 93926; 96372; 96374; 96375; 97162; 97530; 99284; A6446; C9113; J1644; J1815; J2001; J2250; J2405; J2543; J2704; J2765; J3010; J3490; J7030; L3260; Q9967

== ENCOUNTER 2020-01-20 16:40 | Emergency (ER) | payer SELFPAY ==
[2020-01-20 16:48] VITALS: PULSE 79; RESP 18; TEMP 36.9; O2SAT 98; BMI 19.9
--- NOTE | 2020-01-20 17:09 | ED_ITS ---
HPI - Abdominal Pain General: Chief Complaint: Abdominal Pain Stated Complaint: ABD PAIN, Time Seen by Provider: 01/20/20 17:00 History of Present Illness: HPI narrative: Patient arrives via ambulance with complaints of right sided abdominal pain flank pain that started this morning and she is vomited today she is at least 7 times unable to keep her Zofran down said blood sugars are about 220 denies any fever chills diarrhea or other problems MD elicited complaint: abdominal pain and flank pain Onset (ago): hour(s) Pain Consistency: constant Location: RLQ and R flank Severity: moderate Quality: cramping, stabbing and aching Radiation: RLQ and R flank Exacerbating factors: eating Relieving factors: nothing Associated Symptoms: Reports nausea and vomiting; Denies chills and fever(s) Review of Systems Const: Denies: fever(s), chills or body aches Eyes: Denies: change in vision or blurry vision ENMT: Denies: throat pain or nasal congestion Card: Denies: chest pain or dyspnea on exertion Resp: Denies: dyspnea, productive cough or non-productive cough GI: Reports: abdominal pain, nausea and vomiting Musc: Denies: extremity pain Skin/Breast: Denies: rash Neuro: Denies: headache(s) Psych: Denies: anxiety or depression Keith/Lymph: Denies: easy bruising PFSH ED PFSH: Medical History (Updated 01/18/20 @ 00:00 by ) CKD (chronic kidney disease) stage 2, GFR 60-89 ml/min -secondary to diabetic nephropathy -baseline Cr is around 1.0 -has FIONA superimposed on CKD likely due to dehydration; FIONA improving -continue to monitor renal function, avoid nephrotoxins, renally dose meds -off IVF hydration Coronary artery disease -hx of CAD s/p stenting -on ASA, Plavix; hold in case of surgery -not on statin Diabetes mellitus type 1 -noted hx of DM type I complicated by nephropathy and neuropathy -A1c-7.5 -Accuchecks, ISS, hypoglycemia precautions -hyperglycemia without DKA Diabetic gastroparesis -secondary to DM type I Hyperlipidemia Surgical History (Updated 01/18/20 @ 00:00 by ) Below-knee amputation of left lower extremity H/O exploratory laparotomy x 3 Previous section x 3 S/P coronary artery stent placement x 1 S/P percutaneous endoscopic gastrostomy (PEG) tube placement Family History (Updated 01/13/20 @ 18:40 by Lamar Suarez MD) Unknown Diabetes extensive, type II Other CHF (congestive heart failure) Social History (Updated 01/13/20 @ 18:41 by Lamar Suarez MD) Smoking and tobacco status: never smoked Quit status (tobacco): has quit using tobacco Former quit date comment: 15 yrs ago Alcohol intake: former Former alcohol use details: 15 yrs ago Household members: spouse Marital status: Sexually active: Yes (1, ) Physical Exam Const: COMMON NORMALS: no acute distress, average body habitus and patient oriented x3 HENMT: COMMON NORMALS: normocephalic HEAD & SCALP: normal to inspection and normocephalic FACE & SINUS: normal facial exam Eye: COMMON NORMALS: conjunctivae normal GENERAL EYE: appearance normal, both eyes and all related structures CONJUNCTIVA: Yes conjunctivae normal Neck/C-Spine: COMMON NORMALS: no JVD Chest: COMMONS NORMALS: normal inspection of the chest Resp: COMMON NORMALS: normal respiratory effort and clear to auscultation bilaterally AUSCULTATION: clear to auscultation bilaterally Cardio: COMMON NORMALS: no JVD, regular rate and regular rhythm RATE: regular rate RHYTHM: regular rhythm GI: AUSCULTATION: Yes Hyperactive bowel sounds present PALPATION: Yes Tenderness to palpation present (GI) Details: RLQ Extremity: COMMON NORMALS: normal to inspection and full ROM Neuro: COMMON NORMALS: patient oriented x3 Course Vital Signs: Vital signs: Vital Signs Temperature 98.5 F 01/20/20 16:48 Pulse Rate 79 01/20/20 16:48 Respiratory Rate 18 01/20/20 16:48 Pulse Oximetry 98 01/20/20 16:48 Discharge Plan Discharge Prescriptions: No Action gabapentin 400 mg Capsule 400 mg PO TID RF: 0 Plavix 75 mg Tablet 75 mg PO DAILY RF: 0 Aspir-81 81 mg Tablet,Delayed Release (Dr/Ec) 81 mg PO DAILY RF: 0 carvedilol 3.125 mg tablet 3.125 mg PO Q12H RF: 0 Humalog U-100 Insulin 100 unit/mL Solution See Rx Instructions .ROUTE .COMPLEX RF: 0 lisinopril 2.5 mg tablet 2.5 mg PO DAILY RF: 0 Lantus Solostar U-100 Insulin 100 unit/mL (3 mL) Insulin Pen 10 unit SUBCUT BEDTIME RF: 0 clindamycin HCl 150 mg Capsule 450 mg PO TID 14 Days Qty: 126 RF: 0 oxycodone-acetaminophen 10-325 mg Tablet 1 tab PO Q4H PRN (Reason: Moderate Pain) Qty: 30 RF: 0 pantoprazole 40 mg Tablet,Delayed Release (Dr/Ec) 40 mg PO BID 30 Days Qty: 60 RF: 0 Zofran 4 mg Tablet 4 mg PO Q6H PRN (Reason: Nausea) Qty: 30 RF: 0 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 Code ED School Resource Officer for Tracig Stephen
[2020-01-20] MEDS: ketorolac 30 mg/mL INJ IVP (17:20)
[2020-01-20] MEDS: ondansetron 2 mg/ML SDV 2 mL 8 MG IVP (17:20)
[2020-01-20 17:36] LABS: ABG PCO2 35.2 mmHg (35-45); Arterial Blood Gas Hematocrit 31.9 % (37-47); Base Excess ABG 4.4 mmol/L (-2.0-2.0); Blood Gas Allen Test Pos; Blood Gas Sample Site Radial, left; Blood Gas Sample Type Arterial; HCO3 ABG 27.7 mmol/L (22-26); Oxygen Device ROOM AIR; PO2 ABG 87.7 mmHg (80.0-100.0)
[2020-01-20 17:42] LABS: Basophils % 0.7 %; Eosinophils # 0.1 10^3/uL (0.0-0.8); Hematocrit 33.4 % (37.0-47.0); Hemoglobin 10.5 g/dL (11.5-15.3); Lymphocytes # 1.3 10^3/uL (0.8-4.8); Lymphocytes % 20.8 %; Mean Corpuscular HGB Conc 31.4 g/dL (30.0-36.0); Mean Corpuscular Hemoglobin 29.7 pg (28.0-34.0); Mean Corpuscular Volume 94.6 fL (81-99); Mean Platelet Volume 8.3 fL (7.4-10.4); Monocytes # 0.4 10^3/uL (0.2-0.9); Monocytes % 6.1 %; Neutrophils # 4.2 10^3/uL (1.8-7.7); Neutrophils % 69.7 %; Nucleated Red Blood Cells % 0 %; Platelet Count 538 10^3/cmm (130-400); Red Blood Count 3.53 10^6/uL (4.1-5.3); Red Cell Distribution Width 13.5 % (12.1-15.1); White Blood Count 6.1 10^3/uL (4.0-10.0)
[2020-01-20 17:56] LABS: Alanine Aminotransferase 20 U/L (0-33); Alkaline Phosphatase 325 IU/L (35-105); Anion Gap 20.4 (5-19); Aspartate Amino Transferase 14 U/L (0-32); Blood Urea Nitrogen 19 mg/dL (6-20); C Reactive Protein 51.4 mg/L (0.0-4.9); Calcium 11.2 mg/dL (8.5-10.5); Carbon Dioxide 25 mmol/L (22-29); Chloride 98 mmol/L (98-107); Glomerular Filtration Rate 61.1 mL/min (90-130); Glucose 211 mg/dL (65-115); Lipase 21 U/L (13-60); Osmolality Calculated 291 mOsm/kg (285-295); Potassium 4.4 mmol/L (3.5-5.1); Sodium 139 mmol/L (136-145); Total Bilirubin 0.3 mg/dL (0.15-1.2)
[2020-01-20 17:57] LABS: Lactic Sepsis W/Reflex 1.3 mmol/L (0.5-2.2)
--- NOTE | 2020-01-20 18:03 | CTR_ITS ---
PROCEDURE INFORMATION: Exam: CT Abdomen And Pelvis With Contrast Exam date and time: 01/20/2020 6:38 PM Age: 39 years old Clinical indication: Abdominal pain; Flank; Right lower quadrant (rlq); Prior surgery; Surgery type: Gb, c-sec; Patient HX: N/v/d; Additional info: Abd pain TECHNIQUE: Imaging protocol: Computed tomography of the abdomen and pelvis with intravenous contrast. Sagittal and coronal reformatted images were created and reviewed. Radiation optimization: All CT scans at this facility use at least one of these dose optimization techniques: automated exposure control; mA and/or kV adjustment per patient size (includes targeted exams where dose is matched to clinical indication); or iterative reconstruction. Contrast material: OMNI 300; Contrast volume: 95 ml; Contrast route: IV; COMPARISON: CT abdomen pelvis w con* [id number] 01/13/2020 12:14 PM RADIATION DOSE METRICS: Total DLP: 554.19 mGy-cm FINDINGS: Heart: Visualized portions of the heart are unremarkable. Lungs: Visualized lungs are clear. Pleural space: No pleural effusion. Liver: The liver is moderately enlarged measuring 22.3 cm in length. Findings are stable. Hypodense focus in the liver that cannot be further characterized on the current examination. This measures 1.7 x 0.5 cm (series 2, image 13). Findings are stable. Gallbladder and bile ducts: Stable findings consistent with a previous cholecystectomy. No biliary ductal dilatation. Pancreas: The pancreas is unremarkable. No pancreatic ductal dilatation. Spleen: The spleen is unremarkable. Adrenals: The right and left adrenal glands are unremarkable. Kidneys and ureters: The right and left kidneys are unremarkable. The right and left ureters are unremarkable. Stomach and bowel: Scattered diverticula in the sigmoid colon. No evidence for diverticulitis. Increased fecal content in the colon. Fluid within the small bowel without evidence of mesenteric lymphadenopathy or bowel wall thickening. Appendix: The appendix is visualized and is unremarkable. No findings to suggest acute appendicitis. Intraperitoneal space: No free intraperitoneal air. No ascites. No loculated fluid collections to suggest an abscess. Vasculature: Mild atherosclerotic changes in the visualized arteries. Hepatic veins, portal veins, splenic vein, and SMV are patent. Lymph nodes: Partially visualized enlarged right inguinal lymph node measuring 1.2 cm in short axis. Findings are stable. No other enlarged lymph nodes. Bladder: The bladder is incompletely filled, which can limit evaluation. No focal abnormality in the bladder however. Reproductive: The uterus, right ovary, and left ovary are unremarkable. Bones/joints: Degenerative changes in the spine and hips. Soft tissues: No acute abnormality in the extra-abdominal soft tissues. CT/CT abdomen pelvis w con* [id number] IMPRESSION: 1. Fluid within the small bowel without evidence of mesenteric lymphadenopathy or bowel wall thickening. This may reflect viral gastroenteritis in the appropriate clinical situation. 2. Scattered diverticula in the sigmoid colon. No evidence for diverticulitis. 3. Stable nonspecific enlarged right inguinal lymph node is partially visualized. This may be reactive in nature. Followup imaging recommended to insure stability/resolution however. 4. Stable hypodense focus in the liver that cannot be further characterized on the current examination. Recommend further evaluation with liver MRI on a nonemergent basis if this has not previously been performed, and the patient has no contraindication. 5. Incidental/nonacute findings are listed in the report. Radiation Dose CTDIVOL = (mGy): DLP = 554.19 (mGy-cm)
[2020-01-20 18:18] LABS: HCG, Serum Qual Negative (Negative)
[2020-01-20] MEDS: metoclopramide 5 mg/mL SDV 2 mL 10 MG IVP (19:42)
[2020-01-20] MEDS: sodium chloride 0.9% 1,000 ML 999 ML IV (19:42)
[2020-01-20] MEDS: iohexol 300 mg/mL 100 mL Btl 95 ML IV (20:15)
[2020-01-20 20:30] LABS: Add Urine Microscopic? YES; Bilirubin Urine Neg (NEGATIVE); Blood Urine Neg (Negative); Glucose Urine UA 2+ (Normal); Ketones Urine Negative (Negative); Leukocyte Esterase Urine Negative (Negative); Nitrate Urine Negative (Negative); Protein Urine 1+ (Negative); Urine Appearance Hazy (CLEAR); Urine Color Yellow (Yellow); Urobilinogen Urine 1 mg/dL (Negative); pH Urine 7 (5-7)
[2020-01-20 20:32] LABS: Squamous Epithelial Cell Urine 55-80 (0-5); WBC Urine 0-4 /hpf (0-5)
[2020-01-20 20:33] LABS: Add Urine Culture? No; Amphetamines Screen Urine Negative (Negative); Bacteria Urine 2+; Barbiturates Screen Urine Negative (Negative); Benzodiazepines Screen Urine Negative (Negative); Cocaine Screen Urine Negative (Negative); Opiate Screen Urine Positive (Negative); PCP Screen Urine Negative (Negative); Renal Epithelial Cells Urine N /hpf; THC Screen Urine Negative (Negative)
[2020-01-20 21:33] VITALS: BP 110/64; PULSE 68; RESP 18; O2SAT 98
== END 2020-01-20 21:36 | disposition home or self-care (01) ==
PROVIDERS: Emergency Provider Nurse Practitioner Family
DX: R10.9 Unspecified abdominal pain (principal); Z79.82 Long term (current) use of aspirin; Z79.02 Long term (current) use of antithrombotics/antiplatelets; Z79.4 Long term (current) use of insulin; E11.22 Type 2 diabetes mellitus with diabetic chronic kidney disease; N18.2 Chronic kidney disease, stage 2 (mild); I25.10 Atherosclerotic heart disease of native coronary artery without angina pectoris; E78.5 Hyperlipidemia, unspecified; Z89.512 Acquired absence of left leg below knee
CPT/HCPCS: 12345; 36600; 74177; 80053; 80306; 81001; 82803; 83605; 83690; 84703; 85025; 86140; 96361; 96374; 96375; 99282; 99283; J0131; J1885; J2405; J2765; J7030; Q9967

== ENCOUNTER 2020-01-22 11:49 | Observation (INO) | payer SELFPAY ==
[2020-01-22] VITALS (10 sets, daily range): BP systolic 156–203; BP diastolic 84–126; PULSE 72–97; RESP 16–18; TEMP 36.7–37.1; O2SAT 99–100; BMI 19.9
[2020-01-22] MEDS: ondansetron 2 mg/ML SDV 2 mL 4 MG IVP ×3 (12:19→21:17)
[2020-01-22] MEDS: famotidine 20 mg/2 mL INJ 40 MG IVP (12:19)
[2020-01-22] MEDS: sodium chloride 0.9% 1,000 ML 999 ML IV (12:19)
--- NOTE | 2020-01-22 12:36 | W.ED.ABDPA2 ---
HPI - Abdominal Pain General: Chief Complaint: Abdominal Pain Stated Complaint: ABDOMINAL PAIN Time Seen by Provider: 01/22/20 11:53 History of Present Illness: HPI narrative: This patient is a 39-year-old female with a history of type 1 diabetes. She presents today with 2 days of abdominal and right flank pain as well as persistent vomiting. She has not been able to keep down any food, fluids, medications for the past 2 days. She has not taken her insulin at all due to the vomiting. She has a history of gastroparesis and has had these symptoms before but she said this is more severe and longer duration than normal. MD elicited complaint: abdominal pain and flank pain Pertinent past history: other (Diabetic gastroparesis) Onset (ago): day(s) (2) Pain Consistency: constant Location: RUQ, RLQ and R flank Severity: similar to previous episodes (More severe pain) Quality: cramping, stabbing, aching and burning Radiation: none Exacerbating factors: eating and movement Relieving factors: nothing Associated Symptoms: Reports anorexia, nausea and vomiting; Denies chills and fever(s) Review of Systems General: Reports: 10 or more systems reviewed and unremarkable except in HPI and below Const: Denies: fever(s), chills or fatigue Eyes: Denies: change in vision ENMT: Denies: odynophagia Card: Denies: chest pain or swelling of feet/ankles Resp: Denies: dyspnea, productive cough or non-productive cough GI: Reports: abdominal pain, nausea and vomiting : Denies: flank pain or difficulty voiding Musc: Denies: neck pain or back pain Skin/Breast: Denies: rash Neuro: Denies: headache(s), numbness in extremities or weakness in extremities Keith/Lymph: Denies: easy bruising or easy bleeding PFS ED PFSH: Medical History CKD (chronic kidney disease) stage 2, GFR 60-89 ml/min -secondary to diabetic nephropathy -baseline Cr is around 1.0 -has FIONA superimposed on CKD likely due to dehydration; FIONA improving -continue to monitor renal function, avoid nephrotoxins, renally dose meds -off IVF hydration Coronary artery disease -hx of CAD s/p stenting -on ASA, Plavix; hold in case of surgery -not on statin Diabetes mellitus type 1 -noted hx of DM type I complicated by nephropathy and neuropathy -A1c-7.5 -Accuchecks, ISS, hypoglycemia precautions -hyperglycemia without DKA Diabetic gastroparesis -secondary to DM type I Hyperlipidemia Surgical History Below-knee amputation of left lower extremity H/O exploratory laparotomy x 3 Previous section x 3 S/P coronary artery stent placement x 1 S/P percutaneous endoscopic gastrostomy (PEG) tube placement Family History Unknown Diabetes extensive, type II Other CHF (congestive heart failure) Social History Smoking and tobacco status: former smoker Quit status (tobacco): has quit using tobacco Former quit date comment: 15 yrs ago Alcohol intake: former Former alcohol use details: 15 yrs ago Household members: spouse Marital status: Sexually active: Yes (1, ) Physical Exam Const: COMMON NORMALS: patient oriented x3 and alert HENMT: HEAD & SCALP: normal to inspection FACE & SINUS: normal facial exam Eye: GENERAL EYE: appearance normal, both eyes and all related structures Neck/C-Spine: COMMON NORMALS: supple, no meningeal signs and no JVD Chest: COMMONS NORMALS: normal inspection of the chest Resp: COMMON NORMALS: normal respiratory effort, No use of accessory muscles and clear to auscultation bilaterally AUSCULTATION: clear to auscultation bilaterally Cardio: COMMON NORMALS: no JVD, regular rate, regular rhythm and No murmurs present (Cardio) RATE: regular rate RHYTHM: regular rhythm GI: COMMON NORMALS: Normal to inspection, nondistended, normoactive bowel sounds present, Soft to palpation and non-tender INSPECTION: Yes normal to inspection AUSCULTATION: Yes normoactive bowel sounds PALPATION: Yes Soft to palpation Back/Pelvis: COMMON NORMALS: thoracic and lumbar spine normal to inspection Neuro: COMMON NORMALS: patient oriented x3, moves all extremities, no focal motor deficits and no sensory deficits noted SENSORIUM/ORIENTATION: Yes alert MENINGEAL SIGNS: Yes no meningeal signs Psych: COMMON NORMALS: mental status grossly normal, cooperative and normal affect Skin: COMMON NORMALS: no rashes or lesions noted and turgor normal GENERAL SKIN EXAM: no rashes or lesions noted and turgor normal Course ED course: This patient presents with abdominal pain and vomiting. She has a history of similar presentations in the past related to diabetic gastroparesis. Is tearful and extremely uncomfortable on initial evaluation. Additionally back to reevaluate her and she is sleeping quietly and comfortably. Her labs reflect some dehydration but otherwise really quite acceptable. I will reevaluate her after she is rested a little bit and see how she feels. Hopefully she will be able to tolerate p.o. and go home. Reevaluation(s): Reevaluation #1: Patient woke up and started throwing up again. She still having severe abdominal pain as well. She is extremely tearful and anxious. She had a CT a few days ago when she was here and that did not show any significant findings. I do not think it would be useful to repeat that today. She was given more pain medicine. She is not in DKA today. I spoke with Dr. Emery and she will admit her to the hospital for further management. Vital Signs: Vital signs: Vital Signs Temperature 98.6 F 01/22/20 11:49 Pulse Rate 78 01/22/20 15:50 Respiratory Rate 16 01/22/20 11:49 Blood Pressure 201/113 01/22/20 15:50 Pulse Oximetry 100 01/22/20 15:50 MDM - Abdominal Pain Lab Data: Labs: Lab Results 01/22/20 01/22/20 01/22/20 Range/Units 12:30 12:34 12:34 WBC 6.3 (4.0-10.0) 10^3/ uL RBC 3.51 L (4.1-5.3) 10^6/u L Hgb 10.1 L (11.5-15.3) g/dL Hct 34.4 L (37.0-47.0) % MCV 98.0 (81-99) fL MCH 28.8 (28.0-34.0) pg MCHC 29.4 L (30.0-36.0) g/dL RDW 13.7 (12.1-15.1) % Plt Count 556 H (130-400) 10^3/c mm MPV 8.8 (7.4-10.4) fL Neut % (Auto) 80.9 % Lymph % (Auto) 12.1 % Caroline % (Auto) 4.8 % Eos % (Auto) 1.1 % Baso % (Auto) 0.5 % Neut # (Auto) 5.1 (1.8-7.7) 10^3/u L Lymph # (Auto) 0.8 (0.8-4.8) 10^3/u L Caroline # (Auto) 0.3 (0.2-0.9) 10^3/u L Eos # (Auto) 0.1 (0.0-0.8) 10^3/u L Baso # (Auto) 0.0 (0.0-0.1) 10^3/u L Nucleated RBC % (a uto) 0 % Nucleated RBCs # 0.0 /100WBC Sodium 142 (136-145) mmol/L Potassium 4.0 (3.5-5.1) mmol/L Chloride 103 (98-107) mmol/L Carbon Dioxide 21 L (22-29) mmol/L Anion Gap 22.0 H (5-19) BUN 26 H (6-20) mg/dL Creatinine 1.3 H (0.5-0.9) mg/dL GFR Calculation 45.1 L (90-130) mL/min Glucose 246 H (65-115) mg/dL POC Glucose (70-110) mg/dL Calculated Osmolal ity 299 H (285-295) mOsm/k g Lactate 1.9 (0.5-2.2) mmol/L Calcium 10.3 (8.5-10.5) mg/dL Total Bilirubin 0.3 (0.15-1.2) mg/dL AST 13 (0-32) U/L ALT 14 (0-33) U/L Alkaline Phosphata se 246 H (35-105) IU/L Total Protein 8.3 (6.6-8.7) g/dL Albumin 4.0 (3.5-5.2) g/dL Globulin 4.3 (1.3-4.6) g/dL Lipase 22 (13-60) U/L Urine Color (Yellow) Urine Appearance (CLEAR) Urine pH (5-7) Ur Specific Gravit y (1.005-1.030) Urine Protein (Negative) Urine Glucose (UA) (Normal) Urine Ketones (Negative) Urine Blood (Negative) Urine Nitrate (Negative) Urine Bilirubin (NEGATIVE) Urine Urobilinogen (Negative) mg/dL Ur Leukocyte Estephania ase (Negative) 01/22/20 01/22/20 Range/Units 12:59 13:03 WBC (4.0-10.0) 10^3/ uL RBC (4.1-5.3) 10^6/u L Hgb (11.5-15.3) g/dL Hct (37.0-47.0) % MCV (81-99) fL MCH (28.0-34.0) pg MCHC (30.0-36.0) g/dL RDW (12.1-15.1) % Plt Count (130-400) 10^3/c mm MPV (7.4-10.4) fL Neut % (Auto) % Lymph % (Auto) % Caroline % (Auto) % Eos % (Auto) % Baso % (Auto) % Neut # (Auto) (1.8-7.7) 10^3/u L Lymph # (Auto) (0.8-4.8) 10^3/u L Caroline # (Auto) (0.2-0.9) 10^3/u L Eos # (Auto) (0.0-0.8) 10^3/u L Baso # (Auto) (0.0-0.1) 10^3/u L Nucleated RBC % (a uto) % Nucleated RBCs # /100WBC Sodium (136-145) mmol/L Potassium (3.5-5.1) mmol/L Chloride (98-107) mmol/L Carbon Dioxide (22-29) mmol/L Anion Gap (5-19) BUN (6-20) mg/dL Creatinine (0.5-0.9) mg/dL GFR Calculation (90-130) mL/min Glucose (65-115) mg/dL POC Glucose 201 (70-110) mg/dL Calculated Osmolal ity (285-295) mOsm/k g Lactate (0.5-2.2) mmol/L Calcium (8.5-10.5) mg/dL Total Bilirubin (0.15-1.2) mg/dL AST (0-32) U/L ALT (0-33) U/L Alkaline Phosphata se (35-105) IU/L Total Protein (6.6-8.7) g/dL Albumin (3.5-5.2) g/dL Globulin (1.3-4.6) g/dL Lipase (13-60) U/L Urine Color Yellow (Yellow) Urine Appearance Clear (CLEAR) Urine pH 6 (5-7) Ur Specific Gravit y 1.015 (1.005-1.030) Urine Protein Neg (Negative) Urine Glucose (UA) 2+ (Normal) Urine Ketones Negative (Negative) Urine Blood Neg (Negative) Urine Nitrate Negative (Negative) Urine Bilirubin Neg (NEGATIVE) Urine Urobilinogen Neg (Negative) mg/dL Ur Leukocyte Estephania ase Negative (Negative) Discharge Plan Discharge Admit Provider: Sonali Emery 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 Code ED Vinyl Flooring 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
[2020-01-22 12:53] LABS: Basophils % 0.5 %; Eosinophils # 0.1 10^3/uL (0.0-0.8); Eosinophils % 1.1 %; Hematocrit 34.4 % (37.0-47.0); Hemoglobin 10.1 g/dL (11.5-15.3); Lymphocytes # 0.8 10^3/uL (0.8-4.8); Lymphocytes % 12.1 %; Mean Corpuscular HGB Conc 29.4 g/dL (30.0-36.0); Mean Corpuscular Hemoglobin 28.8 pg (28.0-34.0); Mean Platelet Volume 8.8 fL (7.4-10.4); Monocytes # 0.3 10^3/uL (0.2-0.9); Monocytes % 4.8 %; Neutrophils # 5.1 10^3/uL (1.8-7.7); Neutrophils % 80.9 %; Nucleated Red Blood Cells % 0 %; Platelet Count 556 10^3/cmm (130-400); Red Blood Count 3.51 10^6/uL (4.1-5.3); Red Cell Distribution Width 13.7 % (12.1-15.1); White Blood Count 6.3 10^3/uL (4.0-10.0)
[2020-01-22] MEDS: LORazepam 2 mg/mL INJ 1 mL 0.5 MG IVP (12:57)
[2020-01-22] MEDS: HYDROmorphone 1 mg/mL INJ 1 mL 0.5 MG IVP ×2 (12:57→16:00)
[2020-01-22 12:59] LABS: Alanine Aminotransferase 14 U/L (0-33); Alkaline Phosphatase 246 IU/L (35-105); Aspartate Amino Transferase 13 U/L (0-32); Blood Urea Nitrogen 26 mg/dL (6-20); Calcium 10.3 mg/dL (8.5-10.5); Carbon Dioxide 21 mmol/L (22-29); Chloride 103 mmol/L (98-107); Globulin 4.3 g/dL (1.3-4.6); Glomerular Filtration Rate 45.1 mL/min (90-130); Glucose 246 mg/dL (65-115); Lipase 22 U/L (13-60); Osmolality Calculated 299 mOsm/kg (285-295); Sodium 142 mmol/L (136-145); Total Bilirubin 0.3 mg/dL (0.15-1.2); Total Protein 8.3 g/dL (6.6-8.7)
[2020-01-22 12:59] LABS: Lactate (Lactic Acid level) 1.9 mmol/L (0.5-2.2)
[2020-01-22 13:02] LABS: Glucose Point of Care 201 mg/dL (70-110)
[2020-01-22 13:13] LABS: Add Urine Microscopic? NO
[2020-01-22 13:26] LABS: Bilirubin Urine Neg (NEGATIVE); Blood Urine Neg (Negative); Glucose Urine UA 2+ (Normal); Ketones Urine Negative (Negative); Leukocyte Esterase Urine Negative (Negative); Nitrate Urine Negative (Negative); Protein Urine Neg (Negative); Specific Gravity, Urine 1.015 (1.005-1.030); Urine Appearance Clear (CLEAR); Urine Color Yellow (Yellow); Urobilinogen Urine Neg (Negative); pH Urine 6 (5-7)
--- NOTE | 2020-01-22 18:08 | PM.HP ---
Providers/Chief Complaint Admitting Physician: Sonali Emery MD Chief Complaint: ABDOMINAL PAIN History of Present Illness Cherrie Steel is a 39 year old female with h/o type 1 DM associated with nephropathy, gastroparesis and neuropathy, s/p L BKA, HTN, CAD s/p stenting; presents via ambulance from home for evaluation of ongoing significant right lower quadrant abdominal pain, nausea/vomiting over the past 2 days. OF note she was recently admitted here between 01/12-01/16 for above issues and also right diabetic foot ulcer with osteomyelitis of right 2nd toes for which she underwent partial right second toe amputation, wound excision with skin flap closure, excision of proximal phalanx base and sesamoids on 01/15/20. Tissue Cx from OR is with MRSA, strep sp and corynebactreium sp. Per path report from 01/17, bone at resection margin is free of osteomyelitis. Sutures are in place for 3 weeks. She was discharged on PO clindamycin 450mg TID for 14 days. She has been seen at our facility multiple times primarily last year secondary to the same with symptoms attributed to severe diabetic gastroparesis. Work-up in the ER on her arrival shows a normal CBC including white count of 6.3, creatinine of 1.3, blood sugar of 246, anion gap of 22, unremarkable LFTs except for ALP elevation at 212, negative UA, urine drug screen positive for opiates. CT of the abdomen and pelvis on 01/19 was done after presentation to ER with similar complaints and showed fluid in the small bowel likely representing viral gastroenteritis, no diverticulitis, stable hypodense lesion in the liver 1.7 x 0.5cm which cannot be further charcaterized. She denies any recent changes in her diet. Review of Systems General: Reports: 10 or more systems reviewed and unremarkable except in HPI and below Const: Denies: fever(s), chills or body aches Eyes: Denies: change in vision, blurry vision or photophobia ENMT: Denies: throat pain, enlarged tonsils, odynophagia, hoarseness or nasal congestion Card: Denies: chest pain, palpitations, irregular heart rhythm, edema, swelling of feet/ankles, lightheadedness, pre-syncope, dyspnea on exertion or orthopnea Resp: Denies: dyspnea, productive cough, non-productive cough, wheezing, stridor, pain on inspiration, change in phlegm color, hemoptysis or chest congestion GI: Reports: abdominal pain, nausea and vomiting; Denies: hematemesis, coffee ground emesis, dysphagia, heartburn, diarrhea, constipation, GI cramping, change in stool character, hematochezia or melena : Denies: flank pain, difficulty voiding, dysuria, urinary frequency, urinary urgency, urinary hesitancy or hematuria Musc: Denies: neck pain, back pain, extremity pain, joint swelling, joint warmth or deformity Neuro: Denies: headache(s), numbness in extremities, weakness in extremities, sensory changes, difficulty walking, frequent falls, dizziness, vertigo, behavioral changes, Slurred speech present or seizure-like activity Psych: Denies: anxiety, depression, suicidal ideation or homicidal ideation Endo: Denies: polyuria, polydipsia, tired all the time, cold intolerance or hot flashes Keith/Lymph: Denies: easy bruising or easy bleeding Medications/Allergies Home Medications Medication Instructions Recorded Confirmed Last Taken Type Lantus Solostar U-100 Insulin 10 unit SUBCUT BEDTIME 01/13/20 01/22/20 Unknown History aspirin [Aspir-81] 81 mg PO DAILY 01/13/20 01/22/20 01/20/20 History carvedilol 3.125 mg PO Q12H 01/13/20 01/22/20 01/20/20 History clopidogrel [Plavix] 75 mg PO DAILY 01/13/20 01/22/20 01/20/20 History insulin lispro [Humalog U-100 See Rx Instructions .ROUTE .COMPLEX 01/13/20 01/22/20 Unknown History Insulin] lisinopril 2.5 mg PO DAILY 01/13/20 01/22/20 01/20/20 History clindamycin HCl 450 mg PO TID 14 Days #126 cap 01/17/20 01/22/20 01/20/20 Rx pantoprazole 40 mg PO BID 30 Days #60 tab 01/17/20 01/22/20 01/20/20 Rx oxycodone-acetaminophen 1 tab PO Q6H PRN 01/20/20 01/22/20 01/20/20 History doxycycline hyclate 100 mg capsule 100 mg PO BID 14 Days #28 cap 01/21/20 01/22/20 Unknown Rx Allergies Allergy/AdvReac Type Severity Reaction Status Date / Time morphine Allergy ALGY-Difficulty Verified 01/13/20 11:53 Breathing PFSH Acute PFSH: Medical History CKD (chronic kidney disease) stage 2, GFR 60-89 ml/min -secondary to diabetic nephropathy -baseline Cr is around 1.0 -has FIONA superimposed on CKD likely due to dehydration; FIONA improving -continue to monitor renal function, avoid nephrotoxins, renally dose meds -off IVF hydration Coronary artery disease -hx of CAD s/p stenting -on ASA, Plavix; hold in case of surgery -not on statin Diabetes mellitus type 1 -noted hx of DM type I complicated by nephropathy and neuropathy -A1c-7.5 -Accuchecks, ISS, hypoglycemia precautions -hyperglycemia without DKA Diabetic gastroparesis -secondary to DM type I Hyperlipidemia Surgical History Below-knee amputation of left lower extremity H/O exploratory laparotomy x 3 Previous section x 3 S/P coronary artery stent placement x 1 S/P percutaneous endoscopic gastrostomy (PEG) tube placement Family History Unknown Diabetes extensive, type II Other CHF (congestive heart failure) Social History Smoking and tobacco status: former smoker Quit status (tobacco): has quit using tobacco Former quit date comment: 15 yrs ago Alcohol intake: former Former alcohol use details: 15 yrs ago Household members: spouse Marital status: Sexually active: Yes (1, ) Vitals/I&O/Wt Last Vital Signs Temp 98.6 F 01/22/20 11:49 Pulse 78 01/22/20 15:50 Resp 16 01/22/20 11:49 BP 201/113 01/22/20 15:50 Pulse Ox 100 01/22/20 15:50 01/22/20 01/22/20 01/22/20 06:59 14:59 22:59 Intake Total 1000 / 1000 Balance 1000 / 1000 Weight last 48 hrs Weight 61.235 kg Physical Exam Narrative: EXAM NARRATIVE: GEN: Awake, alert and oriented, dry heaves+ CVS: S1S2 N RS: CTA B/L Abd: Soft, nt/nd , bs+ PAPER COUNTER: no focal neuro deficits Data : 01/23/20 05:01 01/23/20 05:01 A&P Assessment and plan (1) Diabetic gastroparesis: Status: Acute (2) Gastroenteritis: Status: Acute (3) Abdominal pain: Status: Acute Qualifiers: Abdominal location: generalized Qualified Code(s): R10.84 - Generalized abdominal pain (4) History of amputation of right forefoot: Status: Acute Additional A&P Information Admit to med/surg in observation 1. Intractable abdominal pain and vomiting : -Presents with ongoing right sided flank pain which has been noted on previous visits to the hospital. Was recently seen at the hospital and ER for the same symptoms -Has been attributed to gastroparesis secondary to DM type I -Associated nausea/vomiting -No acute intra-abdominal abnormality noted on imaging from 01/19 except possible gastroenteritis, however patient without any current diarrhea. Lipase normal, no evidence of pancreatitis -Pain control, antiemetics as needed -IVF hydration -may possibly be contributed by recent clindamycin use 2. Recent h/o forefoot amputation for osteomyelitis MArgins clear per path report OR cx with MRSA, strep and corynebacterium, now s/p 7 days of post op abx. 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
[2020-01-22] MEDS: metoclopramide 5 mg/mL SDV 2 mL IVP (18:23)
[2020-01-22] MEDS: enoxaparin 30 mg/0.3 mL Syringe SUBCUT (18:23)
[2020-01-22] MEDS: HYDROmorphone 1 mg/mL INJ 1 mL IVP ×2 (18:23→22:29)
[2020-01-22] MEDS: sodium chloride 0.9% 1,000 ML 75 ML IV (18:24)
[2020-01-22 20:47] LABS: Glucose Point of Care 136 mg/dL (70-110)
--- NOTE | 2020-01-22 23:53 | PC.NURSE ---
Pt complained of throbbing and tightness in her right foot. It was too early for pain medication and it appeared that her terry bandage was wrapped too tightly. Unwrapped foot and applied gauze and rewrapped foot. Pt stated that her foot felt better.
[2020-01-23] VITALS (9 sets, daily range): BP systolic 144–180; BP diastolic 80–89; PULSE 67–99; RESP 16–18; TEMP 36.8–37; O2SAT 96–99
[2020-01-23] MEDS: metoclopramide 5 mg/mL SDV 2 mL IVP ×3 (02:02→15:23)
[2020-01-23] MEDS: HYDROmorphone 1 mg/mL INJ 1 mL IVP ×4 (02:17→15:23)
--- NOTE | 2020-01-23 02:18 | PC.NURSE ---
Pt crying in bed due to pain, rates it 10/, applied heating pack, called Dr. Gonzalez, recieved orders to give dilauded 20 minutes early. Pt stopped crying as soon as she found out I could give dilaudid early, once medication was pushed she asked if i could flush it so it got to her faster, I educated Pt on the risks of doing that and informed her that I would not do that because she has NS going at 75mL/Hr and it would flush the line and get it to her at a safe rate. Pt verbalized understanding.
[2020-01-23 05:23] LABS: Basophils % 0.8 %; Eosinophils # 0.2 10^3/uL (0.0-0.8); Eosinophils % 3.2 %; Hematocrit 31.3 % (37.0-47.0); Hemoglobin 9.7 g/dL (11.5-15.3); Lymphocytes # 1.5 10^3/uL (0.8-4.8); Lymphocytes % 29.5 %; Mean Corpuscular Hemoglobin 29.8 pg (28.0-34.0); Mean Platelet Volume 8.1 fL (7.4-10.4); Monocytes # 0.4 10^3/uL (0.2-0.9); Neutrophils # 2.9 10^3/uL (1.8-7.7); Neutrophils % 57.9 %; Nucleated Red Blood Cells % 0 %; Platelet Count 489 10^3/cmm (130-400); Red Blood Count 3.26 10^6/uL (4.1-5.3); Red Cell Distribution Width 13.6 % (12.1-15.1)
[2020-01-23 05:40] LABS: Alanine Aminotransferase 11 U/L (0-33); Albumin Level 3.7 g/dL (3.5-5.2); Alkaline Phosphatase 212 IU/L (35-105); Anion Gap 15.8 (5-19); Aspartate Amino Transferase 10 U/L (0-32); Blood Urea Nitrogen 14 mg/dL (6-20); Calcium 10.3 mg/dL (8.5-10.5); Carbon Dioxide 25 mmol/L (22-29); Chloride 103 mmol/L (98-107); Globulin 3.9 g/dL (1.3-4.6); Glucose 125 mg/dL (65-115); Osmolality Calculated 288 mOsm/kg (285-295); Potassium 3.8 mmol/L (3.5-5.1); Sodium 140 mmol/L (136-145); Total Bilirubin 0.3 mg/dL (0.15-1.2); Total Protein 7.6 g/dL (6.6-8.7)
--- NOTE | 2020-01-23 06:15 | PC.NURSE ---
Dr. Gonzalez to floor to see patient per patient request but patient is currently in the shower.
[2020-01-23 06:58] LABS: Glucose Point of Care 146 mg/dL (70-110)
[2020-01-23] MEDS: sodium chloride 0.9% 1,000 ML 75 ML IV ×2 (07:57→20:00)
[2020-01-23] MEDS: ondansetron 2 mg/ML SDV 2 mL 4 MG IVP ×2 (11:07→20:05)
[2020-01-23 11:31] LABS: Glucose Point of Care 143 mg/dL (70-110)
--- NOTE | 2020-01-23 14:21 | PC.CHAP ---
Pastoral Care Encounter/Spiritual Assessment Type of Contact [] Declined magnesium mill operator visit [] Patient/Family/Request visit [] Outpatient visit [] Follow-up visit [] Physician referral [] Code/Alert []X Routine visit [] Staff referral [] Actively dying [] Patient sleeping [] Family support [] [] Out of room [] Palliative care [] [] Receiving care in room [] Pre-surgical visit [] Trauma [] Long length of stay [] ICU visit [] Other: Relational/Emotional Strength [] Patient feels connected with others/family/visitors/staff [] Distress [] Loneliness/isolation [] Abandonment Spirituality of Patient [] Person of Vanessa [] Attends Confucianist of their Vanessa [] Believes in Prayer [] Reads Bible or Jehovah'S Witness materials [] There are Spiritual issues to be addressed Gis Technician Interventions [] Prayer [] Active listening [] Non-anxious presence [] Spiritual/emotional support [] Crisis/trauma care [] Spiritual counseling [] Bereavement support [] Provided bereavement packet [] Provided Bible/devotional materials [] Provided toy/stuffed animal, coloring book to patient or family member [] Provided Communion [] Anointing/[place] [] Salvation [] Completed spiritual assessment [] Other: Impact on Illness or Injury [] Angry [] Fearful [] Anxious [] Often cries [] Exhaustion [] Unable to work [] Unable to attend cheondoism [] Unable to walk/stand [] Unable to read [] Unable to drive [] Unable to eat/drink [] Unable to sleep [] Unable to be with family [] Patient intubated [] Other: Summary Time spent with patient
--- NOTE | 2020-01-23 15:15 | PM.PN ---
Subjective Subjective: Interval history: continues to complain of nausea and abdominal pain, though ovrall more comfortable, poor appetite, not eating breakfast or lunch due to nausea Medications: Reviewed: Yes Vitals/I&O/Wt Last Vital Signs Temp 98.2 F 01/23/20 10:51 Pulse 77 01/23/20 10:51 Resp 16 01/23/20 11:07 BP 144/81 01/23/20 10:51 Pulse Ox 98 01/23/20 10:51 01/23/20 01/23/20 01/23/20 06:59 14:59 22:59 Intake Total 360 / 1360 1000 / 1000 Output Total 600 / 600 Balance -240 / 760 1000 / 1000 Weight last 48 hrs Weight 61.235 kg Physical Exam Narrative: EXAM NARRATIVE: GEN: Awake, alert and oriented, no acute distress CVS: S1S2 N RS: CTA B/L Abd: Soft, nt/nd , bs+ COMMUNITY HEALTH NURSING DIRECTOR: no focal neuro deficits Data : 01/23/20 05:01 01/23/20 05:01 A&P Assessment and plan (1) Diabetic gastroparesis: Status: Acute (2) Gastroenteritis: Status: Acute (3) Abdominal pain: Status: Acute Qualifiers: Abdominal location: generalized Qualified Code(s): R10.84 - Generalized abdominal pain (4) History of amputation of right forefoot: Status: Acute Additional A&P Information 1. Intractable abdominal pain and vomiting : -Presents with ongoing right sided flank pain which has been noted on previous visits to the hospital. Was recently seen at the hospital and ER for the same symptoms -Has been attributed to gastroparesis secondary to DM type I -Associated nausea/vomiting -No acute intra-abdominal abnormality noted on imaging from 01/19 except possible gastroenteritis, however patient without any current diarrhea. Lipase normal, no evidence of pancreatitis -Pain control, antiemetics as needed -IVF hydration -may possibly be contributed by recent clindamycin use -improving today but still unable to tolerate po intake, significant nausea and heaving per her report - add compazine prn 2. Recent h/o forefoot amputation for osteomyelitis MArgins clear per path report OR cx with MRSA, strep and corynebacterium, now s/p 7 days of post op abx. Will hold any further doses as wound appears to be healing well, margins are clear and clindamycin may potentially be contibuting to symptoms DVT ppx: lovenox Attestations Medical Necessity Statement*: continued observation for ongoing nausea, poor po inatake , need for iv fluids 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 Code Acute Medical Doctor for g Fwd Diagnoses Diabetic gastroparesis E11.43; K31.84 Gastroenteritis K52.9 Abdominal pain R10.84 Abdominal location: generalized History of amputation of right forefoot Z89.424
[2020-01-23 17:08] LABS: Glucose Point of Care 115 mg/dL (70-110)
[2020-01-23] MEDS: enoxaparin 30 mg/0.3 mL Syringe SUBCUT (18:53)
--- NOTE | 2020-01-23 18:54 | PC.NURSE ---
Shift Summary Pt rested well in bed most of the day, appeared to be asleep most of the time when nurse entered the room. Transferred self to [facility] [place] and ambulated in [place] with walker multiple times throughout shift. Pt requested pain and nausea meds every 4-6 hours. Bedside report given to FRED Urrutia.
[2020-01-23 21:27] LABS: Glucose Point of Care 131 mg/dL (70-110)
[2020-01-24] VITALS (12 sets, daily range): BP systolic 130–181; BP diastolic 72–99; PULSE 70–86; RESP 16–20; TEMP 36.4–36.9; O2SAT 94–99
[2020-01-24] MEDS: HYDROmorphone 1 mg/mL INJ 1 mL IVP ×4 (00:25→16:36)
[2020-01-24] MEDS: ondansetron 2 mg/ML SDV 2 mL 4 MG IVP (04:24)
[2020-01-24] MEDS: ketorolac 30 mg/mL INJ 15 MG IVP (06:00)
[2020-01-24] MEDS: metoclopramide 5 mg/mL SDV 2 mL IVP (06:00)
[2020-01-24 06:10] LABS: Basophils # 0.1 10^3/uL (0.0-0.1); Basophils % 0.9 %; Eosinophils # 0.2 10^3/uL (0.0-0.8); Eosinophils % 2.5 %; Hematocrit 34.2 % (37.0-47.0); Hemoglobin 10.6 g/dL (11.5-15.3); Lymphocytes # 1.5 10^3/uL (0.8-4.8); Lymphocytes % 23.8 %; Mean Corpuscular Hemoglobin 29.1 pg (28.0-34.0); Mean Platelet Volume 8.1 fL (7.4-10.4); Monocytes # 0.4 10^3/uL (0.2-0.9); Monocytes % 6.5 %; Neutrophils # 4.3 10^3/uL (1.8-7.7); Neutrophils % 65.7 %; Nucleated Red Blood Cells % 0 %; Platelet Count 605 10^3/cmm (130-400); Red Blood Count 3.64 10^6/uL (4.1-5.3); Red Cell Distribution Width 13.2 % (12.1-15.1); White Blood Count 6.5 10^3/uL (4.0-10.0)
[2020-01-24 06:24] LABS: Alanine Aminotransferase 10 U/L (0-33); Albumin Level 4.5 g/dL (3.5-5.2); Alkaline Phosphatase 217 IU/L (35-105); Anion Gap 17.7 (5-19); Aspartate Amino Transferase 14 U/L (0-32); Blood Urea Nitrogen 14 mg/dL (6-20); Calcium 10.1 mg/dL (8.5-10.5); Carbon Dioxide 25 mmol/L (22-29); Chloride 96 mmol/L (98-107); Glomerular Filtration Rate 49.5 mL/min (90-130); Glucose 168 mg/dL (65-115); Osmolality Calculated 280 mOsm/kg (285-295); Potassium 3.7 mmol/L (3.5-5.1); Sodium 135 mmol/L (136-145); Total Bilirubin 0.4 mg/dL (0.15-1.2); Total Protein 8.5 g/dL (6.6-8.7)
[2020-01-24 06:55] LABS: Glucose Point of Care 148 mg/dL (70-110)
[2020-01-24 11:06] LABS: Glucose Point of Care 156 mg/dL (70-110)
--- NOTE | 2020-01-24 16:31 | PM.DCS ---
Discharge Providers Date of Admission: 01/22/20 15:58 Date of Discharge: January 24, 2020 Attending Provider at Admission: Sonali Emery MD Attending Provider at Discharge: Sonali Emery MD Diagnoses at Discharge Discharge Diagnosis (1) Diabetic gastroparesis: Status: Acute (2) Gastroenteritis: Status: Acute (3) Abdominal pain: Status: Acute Qualifiers: Abdominal location: generalized Qualified Code(s): R10.84 - Generalized abdominal pain (4) History of amputation of right forefoot: Status: Acute Reason for Visit Reason for Visit: ABDOMINAL PAIN Hospital Course Discharge Summary: Cherrie Steel is a 39 year old female with h/o type 1 DM associated with nephropathy, gastroparesis and neuropathy, s/p L BKA, HTN, CAD s/p stenting; presents via ambulance from home for evaluation of ongoing significant right lower quadrant abdominal pain, nausea/vomiting over the past 2 days. OF note she was recently admitted here between 01/12-01/16 for above issues and also right diabetic foot ulcer with osteomyelitis of right 2nd toes for which she underwent partial right second toe amputation, wound excision with skin flap closure, excision of proximal phalanx base and sesamoids on 01/15/20. Her wounds are currently healing well. Path report was clear of any osteomyelitis. Antibiotic clindamycin which she had received postoperatively has now been stopped. Wound dressing was changed. During the course of admission she received symptomatic treatment with IV hydration, Zofran Reglan and Compazine, however her nausea continues to persist and has been more of a chronic issue for her. In the past she states she even had a PEG for nutritional purposes because of gastroparesis. Her abdominal pain however is now resolved at the time of discharge., Taken care of by [facility]. She is being scheduled for an outpatient gastric emptying study though arrangements have been made to arrange follow-up with her primary care provider, this has been him. The fact that she is currently does not have insurance as has not yet filled out financial assistance paperwork. She is encouraged to do the same upon discharge. Referral was also provided for the [facility] clinic where she can follow-up and be evaluated once results of the gastric emptying study are back. 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 Discharge Data Data Completed and Pending: Pending at discharge Category Date Time Status Clostridioides Di fficile PCR Routin e Lab 01/22/20 18:09 Uncollected Complete Blood Co unt w/Auto AM LABS Lab 01/25/20 04:00 Ordered Comprehensive Met abolic Panel AM LA BS Lab 01/25/20 04:00 Ordered Labs from last 24 hours 01/24/20 01/24/20 01/24/20 11:02 06:39 06:03 WBC RBC Hgb Hct MCV MCH MCHC RDW Plt Count MPV Neut % (Auto) Lymph % (Auto) Evangeline % (Auto) Eos % (Auto) Baso % (Auto) Neut # (Auto) Lymph # (Auto) Evangeline # (Auto) Eos # (Auto) Baso # (Auto) Nucleated RBC % (a uto) Nucleated RBCs # Sodium 135 L Potassium 3.7 Chloride 96 L Carbon Dioxide 25 Anion Gap 17.7 BUN 14 Creatinine 1.2 H GFR Calculation 49.5 L Glucose 168 H POC Glucose 156 148 Calculated Osmolal ity 280 L Calcium 10.1 Total Bilirubin 0.4 AST 14 ALT 10 Alkaline Phosphata se 217 H Total Protein 8.5 Albumin 4.5 Globulin 4.0 01/24/20 01/23/20 01/23/20 06:03 21:15 17:01 WBC 6.5 RBC 3.64 L Hgb 10.6 L Hct 34.2 L MCV 94.0 MCH 29.1 MCHC 31.0 RDW 13.2 Plt Count 605 H MPV 8.1 Neut % (Auto) 65.7 Lymph % (Auto) 23.8 Evangeline % (Auto) 6.5 Eos % (Auto) 2.5 Baso % (Auto) 0.9 Neut # (Auto) 4.3 Lymph # (Auto) 1.5 Evangeline # (Auto) 0.4 Eos # (Auto) 0.2 Baso # (Auto) 0.1 Nucleated RBC % (a uto) 0 Nucleated RBCs # 0.0 Sodium Potassium Chloride Carbon Dioxide Anion Gap BUN Creatinine GFR Calculation Glucose POC Glucose 131 115 Calculated Osmolal ity Calcium Total Bilirubin AST ALT Alkaline Phosphata se Total Protein Albumin Globulin Vitals: Last Vital Signs Temp 97.9 F 01/24/20 15:28 Pulse 76 01/24/20 15:28 Resp 18 01/24/20 15:28 BP 134/77 01/24/20 15:28 Pulse Ox 94 01/24/20 15:28 Discharge Plan Discharge Patient Disposition: Home, Self-Care Condition: Stable Prescriptions: New ondansetron HCl [Zofran] 8 mg tablet 8 mg PO DAILY PRN (Reason: nausea and vomiting) 10 Days Qty: 20 RF: 0 prochlorperazine maleate [Compazine] 5 mg tablet 5 mg PO BID PRN (Reason: nausea and vomiting) 15 Days Qty: 30 RF: 0 Continued clopidogrel [Plavix] 75 mg Tablet 75 mg PO DAILY RF: 0 aspirin [Aspir-81] 81 mg Tablet,Delayed Release (Dr/Ec) 81 mg PO DAILY RF: 0 carvedilol 3.125 mg tablet 3.125 mg PO Q12H RF: 0 insulin lispro [Humalog U-100 Insulin] 100 unit/mL Solution See Rx Instructions .ROUTE .COMPLEX RF: 0 lisinopril 2.5 mg tablet 2.5 mg PO DAILY RF: 0 Lantus Solostar U-100 Insulin 100 unit/mL (3 mL) Insulin Pen 10 unit SUBCUT BEDTIME RF: 0 pantoprazole 40 mg Tablet,Delayed Release (Dr/Ec) 40 mg PO BID 30 Days Qty: 60 RF: 0 oxycodone-acetaminophen 10-325 mg tablet 1 tab PO Q6H PRN (Reason: Moderate Pain) RF: 0 Discontinued doxycycline hyclate 100 mg capsule 100 mg PO BID 14 Days Qty: 28 RF: 0 clindamycin HCl 150 mg Capsule 450 mg PO TID 14 Days Qty: 126 RF: 0 Discharge Orders: Discharge Order (Routine); Ordered 01/24/20 Ordered By: Sonali Emery Other Ambulatory Orders: [place] [address] (Routine) Timeframe: 1 Week Facility: [facility] - Location: Radiology Ordered By: Sonali Emery Referrals: [facility] [Other] - 7-10 days (Please come to the address listed on Tuesdays and between 9 AM and 11 AM. A clinic volunteer will assist you in the process of registering for clinical services. Please allow 45 minutes.) Discharge Diet: GI Soft Discharge Activity: Resume usual activity Activity Restrictions/Additional Instructions: Please call the [facility] at [phone] or the website [email or web address] for information regarding the clinic. Discharge Attestations Time Spent in Discharge Care*: less than 30 min Status at Discharge: Cognitive status at discharge: cognitively intact, Behavioral status at discharge: cooperative, Quality Metrics Clinical Quality Measures During this hospital stay, did patient experience: None 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 Code Acute Clinical Program Director for g Fwd Diagnoses Diabetic gastroparesis E11.43; K31.84 Gastroenteritis K52.9 Abdominal pain R10.84 Abdominal location: generalized History of amputation of right forefoot Z89.603
[2020-01-24] MEDS: prochlorperazine 10 mg Tablet 5 MG PO (16:37)
[2020-01-24 16:49] LABS: Glucose Point of Care 136 mg/dL (70-110)
--- NOTE | 2020-01-24 17:08 | PC.NURSE ---
Discharge Note Alli Gonzáles called for transportation to daughter's home in [facility]. IV removed, catheter intact, pt tolerated well. Discharge instructions given. Pt taken to ER entrance by staff via wheelchair.
== END 2020-01-24 17:16 | disposition home or self-care (01) ==
LOC: ER 12:50 → MEDSURG 16:32
PROVIDERS: Admitting Provider Student in an Organized Health Care Education/Training Program; Emergency Provider Emergency Medicine; Visit Provider Student in an Organized Health Care Education/Training Program
DX: E11.43 Type 2 diabetes mellitus with diabetic autonomic (poly)neuropathy (principal); K31.84 Gastroparesis; K52.9 Noninfective gastroenteritis and colitis, unspecified; R10.84 Generalized abdominal pain; Z89.431 Acquired absence of right foot; E11.40 Type 2 diabetes mellitus with diabetic neuropathy, unspecified; Z86.14 Personal history of Methicillin resistant Staphylococcus aureus infection; Z79.4 Long term (current) use of insulin; I12.9 Hypertensive chronic kidney disease with stage 1 through stage 4 chronic kidney disease, or unspecified chronic kidney disease; E11.22 Type 2 diabetes mellitus with diabetic chronic kidney disease; N18.2 Chronic kidney disease, stage 2 (mild); E78.5 Hyperlipidemia, unspecified; Z87.891 Personal history of nicotine dependence; Z79.82 Long term (current) use of aspirin
CPT/HCPCS: 12345; 36415; 36416; 80053; 81003; 82962; 83605; 83690; 85025; 96361; 96372; 96374; 96375; 96376; 99283; 99285; G0378; J1170; J1650; J1885; J2060; J2405; J2765; J3490; J7030; Q0164

== ENCOUNTER 2020-02-03 05:37 | Emergency (ER) | payer SELFPAY ==
[2020-02-03] VITALS (8 sets, daily range): BP systolic 125–155; BP diastolic 74–86; PULSE 58–75; RESP 17–20; TEMP 36.6; O2SAT 99–100; BMI 20.7
--- NOTE | 2020-02-03 05:50 | ED_ITS ---
Documented by User: Lynsey Espitia 02/03/20 05:52 HPI - Abdominal Pain General: Chief Complaint: Abdominal Pain Stated Complaint: RIGHT ABDOMINAL PAIN Time Seen by Provider: 02/03/20 05:48 History of Present Illness: HPI narrative: Cherrie Solomon's 39-year-old female comes in with right lower quadrant abdominal pain. She has a history of gastroparesis and multiple surgeries on her abdomen. She has had associated nausea vomiting but denies any diarrhea or constipation. PFSH ED PFSH: Medical History CKD (chronic kidney disease) stage 2, GFR 60-89 ml/min -secondary to diabetic nephropathy -baseline Cr is around 1.0 -has FIONA superimposed on CKD likely due to dehydration; FIONA improving -continue to monitor renal function, avoid nephrotoxins, renally dose meds -off IVF hydration Coronary artery disease -hx of CAD s/p stenting -on ASA, Plavix; hold in case of surgery -not on statin Diabetes mellitus type 1 -noted hx of DM type I complicated by nephropathy and neuropathy -A1c-7.5 -Accuchecks, ISS, hypoglycemia precautions -hyperglycemia without DKA Diabetic gastroparesis -secondary to DM type I Hyperlipidemia Surgical History Below-knee amputation of left lower extremity H/O exploratory laparotomy x 3 Previous section x 3 S/P coronary artery stent placement x 1 S/P percutaneous endoscopic gastrostomy (PEG) tube placement Family History Unknown Diabetes extensive, type II Other CHF (congestive heart failure) Social History Smoking and tobacco status: former smoker Quit status (tobacco): has quit using tobacco Former quit date comment: 15 yrs ago Alcohol intake: former Former alcohol use details: 15 yrs ago Household members: spouse Marital status: Sexually active: Yes (1, ) Physical Exam Const: COMMON NORMALS: no acute distress, patient oriented x3, no limitations, healthy appearing and well nourished GENERAL APPEARANCE: cooperative, well kempt and well developed HENMT: COMMON NORMALS: normocephalic, atraumatic, external ears normal, EAC's normal and Normal external nose present HEAD & SCALP: normal to inspection, normocephalic and atraumatic FACE & SINUS: normal facial exam and face symmetric NOSE: Normal external nose present and Normal nares present EXTERNAL EAR: Yes external ears normal EXTERNAL AUDITORY CANAL: EAC's normal MOUTH: Normal oral and palatal mucosa present, lip normal and tongue normal Eye: COMMON NORMALS: Equal, round and reactive pupils present and conjunctivae normal GENERAL EYE: appearance normal, both eyes and all related structures ALIGNMENT: Yes alignment normal PERIORBITAL: periorbital findings normal EYELID: eyelids normal CONJUNCTIVA: Yes conjunctivae normal SCLERA: sclerae normal PUPIL: Yes Equal, round and reactive pupils present Neck/C-Spine: COMMON NORMALS: full ROM, no lymphadenopathy, supple, no meningeal signs and no JVD GENERAL: Yes normal visual inspection and Yes trachea midline Chest: COMMONS NORMALS: normal inspection of the chest and normal palpation of entire chest wall Resp: COMMON NORMALS: normal respiratory effort, No retractions and No use of accessory muscles EFFORT & INSPECTION: Yes able to speak in complete sentences and Yes symmetric chest movement AUSCULTATION: no crackles, no rales, no rhonchi and no wheezes Cardio: COMMON NORMALS: no JVD, regular rate, regular rhythm, S1 normal heart sound present and S2 normal heart sound present RATE: regular rate RHYTHM: regular rhythm HEART SOUNDS: S1 normal heart sound present, S2 normal heart sound present, no click, no gallops, no murmurs, no rubs and abnormal split S2 GI: COMMON NORMALS: Soft to palpation and No hepatosplenomegaly present PALPATION: Yes Soft to palpation, Yes Tenderness to palpation present (GI) Details: RLQ, No Guarding due to palpation present (GI), No Rigid due to palpation, Yes No hepatosplenomegaly present, No Hernia present, No Palpable mass present and No Pulsatile mass present : COMMON NORMALS: Yes no CVA tenderness BLADDER/KIDNEY EXAM: Yes no CVA tenderness EXTERNAL FEMALE EXAM: No Hernia present Back/Pelvis: COMMON NORMALS: no CVA tenderness, thoracic and lumbar spine normal to inspection, no thoracic nor lumbar tenderness and thoraco-lumbar ROM normal Extremity: COMMON NORMALS: normal to inspection, full ROM, capillary refill normal, no joint enlargement, no clubbing, cyanosis or edema and no calf tenderness Neuro: COMMON NORMALS: patient oriented x3, CN's II-XII intact bilaterally, moves all extremities, no focal motor deficits and no sensory deficits noted MENINGEAL SIGNS: Yes no meningeal signs SPEECH: speech normal Psych: COMMON NORMALS: mental status grossly normal, Normal thought process present, cooperative, normal affect, speech normal and activity/motor behavior normal APPEARANCE: Yes well kempt SPEECH: Yes normal speech THOUGHT PROCESS: Normal thought process present Skin: COMMON NORMALS: no rashes or lesions noted, turgor normal, no jaundice, no petechiae and no mottling GENERAL SKIN EXAM: no rashes or lesions noted and turgor normal Course Vital Signs: Vital signs: Vital Signs Temperature 97.8 F 02/03/20 05:45 Pulse Rate 75 02/03/20 10:55 Respiratory Rate 18 02/03/20 10:55 Blood Pressure 130/74 02/03/20 10:55 Pulse Oximetry 99 02/03/20 10:55 MDM - Abdominal Pain MDM Narrative: Medical decision making narrative: Patient CARE be turned over to Dr. Ceballos at change of shift. Lab Data: Labs: Lab Results 02/03/20 02/03/20 02/03/20 Range/Units 06:05 06:05 06:05 WBC 7.1 (4.0-10.0) 10^3/ uL RBC 3.63 L (4.1-5.3) 10^6/u L Hgb 10.5 L (11.5-15.3) g/dL Hct 32.3 L (37.0-47.0) % MCV 89.0 (81-99) fL MCH 28.9 (28.0-34.0) pg MCHC 32.5 (30.0-36.0) g/dL RDW 12.6 (12.1-15.1) % Plt Count 518 H (130-400) 10^3/c mm MPV 8.6 (7.4-10.4) fL Neut % (Auto) 71.4 % Lymph % (Auto) 18.8 % Hawkins % (Auto) 7.1 % Eos % (Auto) 1.8 % Baso % (Auto) 0.6 % Neut # (Auto) 5.1 (1.8-7.7) 10^3/u L Lymph # (Auto) 1.3 (0.8-4.8) 10^3/u L Hawkins # (Auto) 0.5 (0.2-0.9) 10^3/u L Eos # (Auto) 0.1 (0.0-0.8) 10^3/u L Baso # (Auto) 0.0 (0.0-0.1) 10^3/u L Nucleated RBC % (a uto) 0 % Nucleated RBCs # 0.0 /100WBC Sodium 140 (136-145) mmol/L Potassium 3.6 (3.5-5.1) mmol/L Chloride 100 (98-107) mmol/L Carbon Dioxide 28 (22-29) mmol/L Anion Gap 15.6 (5-19) BUN 23 H (6-20) mg/dL Creatinine 1.3 H (0.5-0.9) mg/dL GFR Calculation 45.1 L (90-130) mL/min Glucose 165 H (65-115) mg/dL Calculated Osmolal ity 290 (285-295) mOsm/k g Lactic Acid 1.6 (0.5-2.2) mmol/L Calcium 9.5 (8.5-10.5) mg/dL Total Bilirubin 0.2 (0.15-1.2) mg/dL AST 12 (0-32) U/L ALT 8 (0-33) U/L Alkaline Phosphata se 119 H (35-105) IU/L Total Protein 7.1 (6.6-8.7) g/dL Albumin 4.1 (3.5-5.2) g/dL Globulin 3.0 (1.3-4.6) g/dL Lipase 53 (13-60) U/L Urine Color (Yellow) Urine Appearance (CLEAR) Urine pH (5-7) Ur Specific Gravit y (1.005-1.030) Urine Protein (Negative) Urine Glucose (UA) (Normal) Urine Ketones (Negative) Urine Blood (Negative) Urine Nitrate (Negative) Urine Bilirubin (NEGATIVE) Urine Urobilinogen (Negative) mg/dL Ur Leukocyte Estephania ase (Negative) Urine RBC (0-2) /hpf Urine WBC (0-5) /hpf Ur Squamous Epith Cells (0-5) Urine Bacteria (NONE) Urine Yeast 02/03/20 Range/Units 06:45 WBC (4.0-10.0) 10^3/ uL RBC (4.1-5.3) 10^6/u L Hgb (11.5-15.3) g/dL Hct (37.0-47.0) % MCV (81-99) fL MCH (28.0-34.0) pg MCHC (30.0-36.0) g/dL RDW (12.1-15.1) % Plt Count (130-400) 10^3/c mm MPV (7.4-10.4) fL Neut % (Auto) % Lymph % (Auto) % Hawkins % (Auto) % Eos % (Auto) % Baso % (Auto) % Neut # (Auto) (1.8-7.7) 10^3/u L Lymph # (Auto) (0.8-4.8) 10^3/u L Hawkins # (Auto) (0.2-0.9) 10^3/u L Eos # (Auto) (0.0-0.8) 10^3/u L Baso # (Auto) (0.0-0.1) 10^3/u L Nucleated RBC % (a uto) % Nucleated RBCs # /100WBC Sodium (136-145) mmol/L Potassium (3.5-5.1) mmol/L Chloride (98-107) mmol/L Carbon Dioxide (22-29) mmol/L Anion Gap (5-19) BUN (6-20) mg/dL Creatinine (0.5-0.9) mg/dL GFR Calculation (90-130) mL/min Glucose (65-115) mg/dL Calculated Osmolal ity (285-295) mOsm/k g Lactic Acid (0.5-2.2) mmol/L Calcium (8.5-10.5) mg/dL Total Bilirubin (0.15-1.2) mg/dL AST (0-32) U/L ALT (0-33) U/L Alkaline Phosphata se (35-105) IU/L Total Protein (6.6-8.7) g/dL Albumin (3.5-5.2) g/dL Globulin (1.3-4.6) g/dL Lipase (13-60) U/L Urine Color Yellow (Yellow) Urine Appearance Clear (CLEAR) Urine pH 7 (5-7) Ur Specific Gravit y 1.010 (1.005-1.030) Urine Protein Trace (Negative) Urine Glucose (UA) 4+ H (Normal) Urine Ketones Negative (Negative) Urine Blood Neg (Negative) Urine Nitrate Negative (Negative) Urine Bilirubin Neg (NEGATIVE) Urine Urobilinogen Norm (Negative) mg/dL Ur Leukocyte Estephania ase Negative (Negative) Urine RBC None (0-2) /hpf Urine WBC 0-4 H (0-5) /hpf Ur Squamous Epith Cells 0-4 H (0-5) Urine Bacteria Trace (NONE) Urine Yeast Trace Discharge Plan Discharge Patient Disposition: Home, Self-Care Clinical Impression: Abdominal pain, Nausea & vomiting Condition: Stable Prescriptions: New promethazine 25 mg tablet 25 mg PO Q6H PRN (Reason: nausea and vomiting) Qty: 30 RF: 0 Discontinued prochlorperazine maleate [Compazine] 5 mg tablet 5 mg PO BID PRN (Reason: nausea and vomiting) 15 Days Qty: 30 RF: 0 No Action clopidogrel [Plavix] 75 mg Tablet 75 mg PO DAILY RF: 0 aspirin [Aspir-81] 81 mg Tablet,Delayed Release (Dr/Ec) 81 mg PO DAILY RF: 0 carvedilol 3.125 mg tablet 3.125 mg PO Q12H RF: 0 insulin lispro [Humalog U-100 Insulin] 100 unit/mL Solution See Rx Instructions .ROUTE .COMPLEX RF: 0 lisinopril 2.5 mg tablet 2.5 mg PO DAILY RF: 0 Lantus Solostar U-100 Insulin 100 unit/mL (3 mL) Insulin Pen 10 unit SUBCUT BEDTIME RF: 0 pantoprazole 40 mg Tablet,Delayed Release (Dr/Ec) 40 mg PO BID 30 Days Qty: 60 RF: 0 oxycodone-acetaminophen 10-325 mg tablet 1 tab PO Q6H PRN (Reason: Moderate Pain) RF: 0 Discharge Orders: Discharge Order (Routine); Ordered 02/03/20 Ordered By: Adama Ceballos Discharge Diet: Clear Liquid Discharge Activity: Increase activity as tolerated Patient Instructions: Clear Liquid Diet (ED), Abdominal Pain (ED) Activity Restrictions/Additional Instructions: Clear liquid diet for 24 to 48 hours. Then advance as tolerated stop the C ompazine use promethazine instead. Discharge Date/Time: 02/03/20 10:43 Sign Out Sign Out Data: Patient Sign Out occurred on 02/03/20 at 06:42. Patient's care was discussed, and care was transferred from Lynsey Espitia to Adama Ceballos DO. Sign Out Comment: Case turned over to Dr. Ceballos at change of shift. Last updated by Lynsey Espitia at 02/03/20 06:23 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 Code ED Drain Tile Press Operator for Chg Fwd Exam Comprehensive Documented by User: Adama Ceballos DO 02/03/20 14:03 HPI - Abdominal Pain General: Chief Complaint: Abdominal Pain Stated Complaint: RIGHT ABDOMINAL PAIN Time Seen by Provider: 02/03/20 05:48 History of Present Illness: HPI narrative: 39-year-old female comes in complaining of right lower quadrant pain that started about 3 days ago she has had a lot of nausea and vomiting with it she said she is vomited up to 6 times a day she denied any hematochezia hematemesis coffee-ground emesis not really had any diarrhea at all stools have been relatively normal. She denies any fever. She has had she has had multiple episodes like this in the past she is not had any urinary tract symptoms no hematuria no dysuria urgency or frequency associated with this at all. Pain localizes to the right lower quadrant. Said multiple episodes of this in the past she is diabetic and has diabetic gastroparesis she is on Reglan but states that does not really seem to help very much. She had several ER visits in the past and scans as well. MD elicited complaint: abdominal pain Onset (ago): day(s) Pain Consistency: intermittent Location: RLQ Severity: severe Quality: cramping Radiation: none Migration to: no migration Exacerbating factors: eating and movement Relieving factors: medication and rest Associated Symptoms: Denies bloating, chills, coffee ground emesis, constipation, diarrhea, dysuria, fever(s), hematochezia, hematemesis, melena, nausea and vomiting Treatments prior to arrival: prescription analgesics and other (Prescription antiemetics) Review of Systems Const: Denies: fever(s), chills, body aches, change in appetite, fatigue or malaise ENMT: Denies: throat pain, ear or mastoid pain, nasal discharge or nasal congestion Card: Denies: chest pain, edema, dyspnea on exertion or orthopnea Resp: Denies: dyspnea, productive cough or non-productive cough GI: Denies: abdominal pain, nausea, vomiting, hematemesis, coffee ground emesis, diarrhea, constipation, bloating, hematochezia or melena : Denies: flank pain, difficulty voiding, dysuria, urinary frequency or urinary urgency Skin/Breast: Denies: rash or pruritus PFSH ED PFSH: Medical History CKD (chronic kidney disease) stage 2, GFR 60-89 ml/min -secondary to diabetic nephropathy -baseline Cr is around 1.0 -has FIONA superimposed on CKD likely due to dehydration; FIONA improving -continue to monitor renal function, avoid nephrotoxins, renally dose meds -off IVF hydration Coronary artery disease -hx of CAD s/p stenting -on ASA, Plavix; hold in case of surgery -not on statin Diabetes mellitus type 1 -noted hx of DM type I complicated by nephropathy and neuropathy -A1c-7.5 -Accuchecks, ISS, hypoglycemia precautions -hyperglycemia without DKA Diabetic gastroparesis -secondary to DM type I Hyperlipidemia Surgical History Below-knee amputation of left lower extremity H/O exploratory laparotomy x 3 Previous section x 3 S/P coronary artery stent placement x 1 S/P percutaneous endoscopic gastrostomy (PEG) tube placement Family History Unknown Diabetes extensive, type II Other CHF (congestive heart failure) Social History Smoking and tobacco status: former smoker Quit status (tobacco): has quit using tobacco Former quit date comment: 15 yrs ago Alcohol intake: former Former alcohol use details: 15 yrs ago Household members: spouse Marital status: Sexually active: Yes (1, ) Physical Exam Const: COMMON NORMALS: no acute distress GENERAL APPEARANCE: cooperative ORIENTATION/CONSCIOUSNESS: Yes awake, Yes oriented to person, Yes oriented to place and Yes oriented to time HENMT: COMMON NORMALS: normocephalic, atraumatic, hearing grossly normal bilaterally, external ears normal, EAC's normal, TM's normal bilaterally, Normal nasal mucous membranes and turbinates present, moist oral mucous membranes and oropharynx normal HEAD & SCALP: normocephalic and atraumatic NOSE: Normal nasal mucous membranes and turbinates present EXTERNAL EAR: Yes external ears normal EXTERNAL AUDITORY CANAL: EAC's normal TYMPANIC MEMBRANE: TM's normal bilaterally Eye: COMMON NORMALS: Equal, round and reactive pupils present, EOMs intact bilaterally, conjunctivae normal and no scleral icterus CONJUNCTIVA: Yes conjunctivae normal PUPIL: Yes Equal, round and reactive pupils present Neck/C-Spine: COMMON NORMALS: full ROM, no lymphadenopathy, supple and no JVD Lymph: LYMPHATIC: no lymphadenopathy noted and no lymphedema noted Resp: COMMON NORMALS: normal respiratory effort, No retractions, No use of accessory muscles and clear to auscultation bilaterally AUSCULTATION: clear to auscultation bilaterally Cardio: COMMON NORMALS: no JVD, regular rate, regular rhythm and No murmurs present (Cardio) RATE: regular rate RHYTHM: regular rhythm GI: COMMON NORMALS: Soft to palpation and No hepatosplenomegaly present AUSCULTATION: Yes normoactive bowel sounds PALPATION: Yes Soft to palpation, Yes Tenderness to palpation present (GI) Details: RLQ, No Guarding due to palpation present (GI) and Yes No hepatosplenomegaly present Extremity: COMMON NORMALS: normal to inspection, capillary refill normal, no clubbing, cyanosis or edema, no calf tenderness and no pedal edema Neuro: SENSORIUM/ORIENTATION: Yes oriented to person, Yes oriented to place and Yes oriented to time Skin: COMMON NORMALS: no rashes or lesions noted GENERAL SKIN EXAM: no rashes or lesions noted Course Vital Signs: Vital signs: Vital Signs Temperature 97.8 F 02/03/20 05:45 Pulse Rate 75 02/03/20 10:55 Respiratory Rate 18 02/03/20 10:55 Blood Pressure 130/74 02/03/20 10:55 Pulse Oximetry 99 02/03/20 10:55 MDM - Abdominal Pain MDM Narrative: Medical decision making narrative: CT findings unremarkable. Will discharge patient home she is feeling somewhat better there were little more fluid before she goes home gave her promethazine to use PRN if she has any worsening or change symptoms return to the emergency room. She can use her other previously prescribed medications for the pain Lab Data: Labs: Lab Results 02/03/20 02/03/20 02/03/20 Range/Units 06:05 06:05 06:05 WBC 7.1 (4.0-10.0) 10^3/ uL RBC 3.63 L (4.1-5.3) 10^6/u L Hgb 10.5 L (11.5-15.3) g/dL Hct 32.3 L (37.0-47.0) % MCV 89.0 (81-99) fL MCH 28.9 (28.0-34.0) pg MCHC 32.5 (30.0-36.0) g/dL RDW 12.6 (12.1-15.1) % Plt Count 518 H (130-400) 10^3/c mm MPV 8.6 (7.4-10.4) fL Neut % (Auto) 71.4 % Lymph % (Auto) 18.8 % Hawkins % (Auto) 7.1 % Eos % (Auto) 1.8 % Baso % (Auto) 0.6 % Neut # (Auto) 5.1 (1.8-7.7) 10^3/u L Lymph # (Auto) 1.3 (0.8-4.8) 10^3/u L Hawkins # (Auto) 0.5 (0.2-0.9) 10^3/u L Eos # (Auto) 0.1 (0.0-0.8) 10^3/u L Baso # (Auto) 0.0 (0.0-0.1) 10^3/u L Nucleated RBC % (a uto) 0 % Nucleated RBCs # 0.0 /100WBC Sodium 140 (136-145) mmol/L Potassium 3.6 (3.5-5.1) mmol/L Chloride 100 (98-107) mmol/L Carbon Dioxide 28 (22-29) mmol/L Anion Gap 15.6 (5-19) BUN 23 H (6-20) mg/dL Creatinine 1.3 H (0.5-0.9) mg/dL GFR Calculation 45.1 L (90-130) mL/min Glucose 165 H (65-115) mg/dL Calculated Osmolal ity 290 (285-295) mOsm/k g Lactic Acid 1.6 (0.5-2.2) mmol/L Calcium 9.5 (8.5-10.5) mg/dL Total Bilirubin 0.2 (0.15-1.2) mg/dL AST 12 (0-32) U/L ALT 8 (0-33) U/L Alkaline Phosphata se 119 H (35-105) IU/L Total Protein 7.1 (6.6-8.7) g/dL Albumin 4.1 (3.5-5.2) g/dL Globulin 3.0 (1.3-4.6) g/dL Lipase 53 (13-60) U/L Urine Color (Yellow) Urine Appearance (CLEAR) Urine pH (5-7) Ur Specific Gravit y (1.005-1.030) Urine Protein (Negative) Urine Glucose (UA) (Normal) Urine Ketones (Negative) Urine Blood (Negative) Urine Nitrate (Negative) Urine Bilirubin (NEGATIVE) Urine Urobilinogen (Negative) mg/dL Ur Leukocyte Estephania ase (Negative) Urine RBC (0-2) /hpf Urine WBC (0-5) /hpf Ur Squamous Epith Cells (0-5) Urine Bacteria (NONE) Urine Yeast 02/03/20 Range/Units 06:45 WBC (4.0-10.0) 10^3/ uL RBC (4.1-5.3) 10^6/u L Hgb (11.5-15.3) g/dL Hct (37.0-47.0) % MCV (81-99) fL MCH (28.0-34.0) pg MCHC (30.0-36.0) g/dL RDW (12.1-15.1) % Plt Count (130-400) 10^3/c mm MPV (7.4-10.4) fL Neut % (Auto) % Lymph % (Auto) % Hawkins % (Auto) % Eos % (Auto) % Baso % (Auto) % Neut # (Auto) (1.8-7.7) 10^3/u L Lymph # (Auto) (0.8-4.8) 10^3/u L Hawkins # (Auto) (0.2-0.9) 10^3/u L Eos # (Auto) (0.0-0.8) 10^3/u L Baso # (Auto) (0.0-0.1) 10^3/u L Nucleated RBC % (a uto) % Nucleated RBCs # /100WBC Sodium (136-145) mmol/L Potassium (3.5-5.1) mmol/L Chloride (98-107) mmol/L Carbon Dioxide (22-29) mmol/L Anion Gap (5-19) BUN (6-20) mg/dL Creatinine (0.5-0.9) mg/dL GFR Calculation (90-130) mL/min Glucose (65-115) mg/dL Calculated Osmolal ity (285-295) mOsm/k g Lactic Acid (0.5-2.2) mmol/L Calcium (8.5-10.5) mg/dL Total Bilirubin (0.15-1.2) mg/dL AST (0-32) U/L ALT (0-33) U/L Alkaline Phosphata se (35-105) IU/L Total Protein (6.6-8.7) g/dL Albumin (3.5-5.2) g/dL Globulin (1.3-4.6) g/dL Lipase (13-60) U/L Urine Color Yellow (Yellow) Urine Appearance Clear (CLEAR) Urine pH 7 (5-7) Ur Specific Gravit y 1.010 (1.005-1.030) Urine Protein Trace (Negative) Urine Glucose (UA) 4+ H (Normal) Urine Ketones Negative (Negative) Urine Blood Neg (Negative) Urine Nitrate Negative (Negative) Urine Bilirubin Neg (NEGATIVE) Urine Urobilinogen Norm (Negative) mg/dL Ur Leukocyte Estephania ase Negative (Negative) Urine RBC None (0-2) /hpf Urine WBC 0-4 H (0-5) /hpf Ur Squamous Epith Cells 0-4 H (0-5) Urine Bacteria Trace (NONE) Urine Yeast Trace Discharge Plan Discharge Patient Disposition: Home, Self-Care Clinical Impression: Abdominal pain, Nausea & vomiting Condition: Stable Prescriptions: New promethazine 25 mg tablet 25 mg PO Q6H PRN (Reason: nausea and vomiting) Qty: 30 RF: 0 Discontinued prochlorperazine maleate [Compazine] 5 mg tablet 5 mg PO BID PRN (Reason: nausea and vomiting) 15 Days Qty: 30 RF: 0 No Action clopidogrel [Plavix] 75 mg Tablet 75 mg PO DAILY RF: 0 aspirin [Aspir-81] 81 mg Tablet,Delayed Release (Dr/Ec) 81 mg PO DAILY RF: 0 carvedilol 3.125 mg tablet 3.125 mg PO Q12H RF: 0 insulin lispro [Humalog U-100 Insulin] 100 unit/mL Solution See Rx Instructions .ROUTE .COMPLEX RF: 0 lisinopril 2.5 mg tablet 2.5 mg PO DAILY RF: 0 Lantus Solostar U-100 Insulin 100 unit/mL (3 mL) Insulin Pen 10 unit SUBCUT BEDTIME RF: 0 pantoprazole 40 mg Tablet,Delayed Release (Dr/Ec) 40 mg PO BID 30 Days Qty: 60 RF: 0 oxycodone-acetaminophen 10-325 mg tablet 1 tab PO Q6H PRN (Reason: Moderate Pain) RF: 0 Discharge Orders: Discharge Order (Routine); Ordered 02/03/20 Ordered By: Adama Ceballos Discharge Diet: Clear Liquid Discharge Activity: Increase activity as tolerated Patient Instructions: Clear Liquid Diet (ED), Abdominal Pain (ED) Activity Restrictions/Additional Instructions: Clear liquid diet for 24 to 48 hours. Then advance as tolerated stop the Compazine use promethazine instead. Discharge Date/Time: 02/03/20 10:43 Sign Out Sign Out Data: Patient Sign Out occurred on 02/03/20 at 06:42. Patient's care was discussed, and care was transferred from Lynsey Espitia to Adama Ceballos DO. Sign Out Comment: Case turned over to Dr. Ceballos at change of shift. Last updated by Lynsey Espitia at 02/03/20 06:23 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 Code ED Drain Tile Press Operator for Chg Fwd Exam Comprehensive
[2020-02-03] MEDS: HYDROmorphone 1 mg/mL INJ 1 mL 0.5 MG IVP ×2 (06:04→07:49)
[2020-02-03] MEDS: ondansetron 2 mg/ML SDV 2 mL 4 MG IVP (06:05)
[2020-02-03] MEDS: sodium chloride 0.9% 1,000 ML 100 ML IV (06:05)
[2020-02-03 06:22] LABS: Basophils % 0.6 %; Eosinophils # 0.1 10^3/uL (0.0-0.8); Eosinophils % 1.8 %; Hematocrit 32.3 % (37.0-47.0); Hemoglobin 10.5 g/dL (11.5-15.3); Lymphocytes # 1.3 10^3/uL (0.8-4.8); Lymphocytes % 18.8 %; Mean Corpuscular HGB Conc 32.5 g/dL (30.0-36.0); Mean Corpuscular Hemoglobin 28.9 pg (28.0-34.0); Mean Platelet Volume 8.6 fL (7.4-10.4); Monocytes # 0.5 10^3/uL (0.2-0.9); Monocytes % 7.1 %; Neutrophils # 5.1 10^3/uL (1.8-7.7); Neutrophils % 71.4 %; Nucleated Red Blood Cells % 0 %; Platelet Count 518 10^3/cmm (130-400); Red Blood Count 3.63 10^6/uL (4.1-5.3); Red Cell Distribution Width 12.6 % (12.1-15.1); White Blood Count 7.1 10^3/uL (4.0-10.0)
[2020-02-03 06:41] LABS: Lactic Sepsis W/Reflex 1.6 mmol/L (0.5-2.2)
[2020-02-03 06:42] LABS: Alanine Aminotransferase 8 U/L (0-33); Albumin Level 4.1 g/dL (3.5-5.2); Alkaline Phosphatase 119 IU/L (35-105); Anion Gap 15.6 (5-19); Aspartate Amino Transferase 12 U/L (0-32); Blood Urea Nitrogen 23 mg/dL (6-20); Calcium 9.5 mg/dL (8.5-10.5); Carbon Dioxide 28 mmol/L (22-29); Chloride 100 mmol/L (98-107); Glomerular Filtration Rate 45.1 mL/min (90-130); Glucose 165 mg/dL (65-115); Lipase 53 U/L (13-60); Osmolality Calculated 290 mOsm/kg (285-295); Potassium 3.6 mmol/L (3.5-5.1); Sodium 140 mmol/L (136-145); Total Bilirubin 0.2 mg/dL (0.15-1.2); Total Protein 7.1 g/dL (6.6-8.7)
--- NOTE | 2020-02-03 07:05 | CTR_ITS ---
PROCEDURE INFORMATION: Exam: CT Abdomen And Pelvis With Contrast Exam date and time: 02/03/2020 7:20 AM Age: 39 years old Clinical indication: Abdominal pain; Prior surgery; Surgery type: Gb. Csection; Patient HX: Generalized abd pain. TECHNIQUE: Imaging protocol: Computed tomography of the abdomen and pelvis with intravenous contrast. Radiation optimization: All CT scans at this facility use at least one of these dose optimization techniques: automated exposure control; mA and/or kV adjustment per patient size (includes targeted exams where dose is matched to clinical indication); or iterative reconstruction. Contrast material: OMNI 300; Contrast volume: 95 ml; Contrast route: INTRAVENOUS (IV); COMPARISON: CT abdomen pelvis w con* [id number] 01/20/2020 8:05 PM RADIATION DOSE METRICS: Total DLP (mGy-cm): 545.43 FINDINGS: Lungs: Visualized portions of the lung bases are clear. Liver: There is a 1.8 cm x 0.7 cm ill-defined hypodensity in the right hepatic lobe on series 2, image 14, similar to prior study. Gallbladder and bile ducts: Status post cholecystectomy. Pancreas: Unremarkable. Spleen: Unremarkable. Adrenals: Unremarkable. Kidneys and ureters: The kidneys are unremarkable. No renal stones identified. No hydronephrosis on either side. Stomach and bowel: No bowel obstruction identified. No diverticulitis identified. Appendix: A structure possibly representing a normal appendix is seen in the right hemipelvis. In any case, there are no findings to suggest appendicitis. Intraperitoneal space: No free intraperitoneal air identified. No free intraperitoneal fluid identified. Vasculature: Mild atherosclerotic aortoiliac calcification. No abdominal aortic aneurysm. Lymph nodes: Unremarkable. Bladder: Unremarkable as visualized. Reproductive: Unremarkable as visualized. Bones/joints: Unremarkable. No acute fracture. Soft tissues: Unremarkable. CT/CT abdomen pelvis w con* [id number] IMPRESSION: 1. No acute intra-abdominal/intrapelvic process identified. Nonemergent findings as above. Radiation Dose CTDIVOL = (mGy): DLP = 545.43 (mGy-cm)
[2020-02-03 07:22] LABS: Urine Appearance Clear (CLEAR); Urine Color Yellow (Yellow)
[2020-02-03 07:23] LABS: Bilirubin Urine Neg (NEGATIVE); Blood Urine Neg (Negative); Glucose Urine UA 4+ (Normal); Ketones Urine Negative (Negative); Leukocyte Esterase Urine Negative (Negative); Nitrate Urine Negative (Negative); Protein Urine Trace (Negative); Urobilinogen Urine Norm (Negative); pH Urine 7 (5-7)
[2020-02-03 07:27] LABS: Add Urine Culture? No; Bacteria Urine TRACE; Squamous Epithelial Cell Urine 0-4 (0-5); WBC Urine 0-4 /hpf (0-5)
[2020-02-03] MEDS: iodixanol 320 mg/mL 100mL Btl IV (07:27)
[2020-02-03] MEDS: sodium chlor 0.9% + KCl 20 mEq 20 MEQ/1,000 ML BAG 125 MEQ IV (07:36)
[2020-02-03] MEDS: haloperidol inj 5 mg/mL INJ 1 mL IVP (07:46)
== END 2020-02-03 10:43 | disposition home or self-care (01) ==
PROVIDERS: Emergency Medicine; Emergency Provider Family Medicine
DX: R10.9 Unspecified abdominal pain (principal); R11.2 Nausea with vomiting, unspecified; Z79.02 Long term (current) use of antithrombotics/antiplatelets; Z79.82 Long term (current) use of aspirin; Z79.4 Long term (current) use of insulin; E10.22 Type 1 diabetes mellitus with diabetic chronic kidney disease; N18.2 Chronic kidney disease, stage 2 (mild); I25.10 Atherosclerotic heart disease of native coronary artery without angina pectoris; E78.5 Hyperlipidemia, unspecified; Z89.512 Acquired absence of left leg below knee; Z87.891 Personal history of nicotine dependence
CPT/HCPCS: 12345; 74177; 80053; 81001; 83605; 83690; 85025; 96360; 96361; 96365; 96366; 96375; 96376; 99283; 99284; J1170; J1630; J2405; J7030; Q9967

== ENCOUNTER 2020-02-04 11:55 | Emergency (ER) | payer SELFPAY ==
[2020-02-04 12:02] VITALS: BMI 19.9
[2020-02-04 12:05] VITALS: BP 167/87; PULSE 90; RESP 18; TEMP 36.8; O2SAT 98
--- NOTE | 2020-02-04 12:18 | W.ED.ABDPA2 ---
HPI - Abdominal Pain General: Chief Complaint: Abdominal Pain Stated Complaint: abd pain Time Seen by Provider: 02/04/20 12:10 History of Present Illness: HPI narrative: Patient complained about chronic abdominal pain was in her hospital recently with same complaint has been in the ER multiple times for this patient said she would not get her medications filled yesterday. MD elicited complaint: abdominal pain Pertinent past history: other (Gastroparesis) Onset (ago): month(s) Pain Consistency: constant Location: RUQ Severity: severe Quality: stabbing and aching Relieving factors: nothing Associated Symptoms: Reports nausea; Denies chills, fever(s) and vomiting Review of Systems Const: Denies: fever(s), chills or body aches Eyes: Denies: change in vision or blurry vision ENMT: Denies: throat pain or nasal congestion Card: Denies: chest pain or dyspnea on exertion Resp: Denies: dyspnea, productive cough or non-productive cough GI: Reports: abdominal pain and nausea; Denies: vomiting Musc: Denies: extremity pain Skin/Breast: Denies: rash Neuro: Denies: headache(s) Psych: Denies: anxiety or depression Keith/Lymph: Denies: easy bruising PFSH ED PFSH: Medical History (Updated 02/03/20 @ 08:42 by Adama Ceballos DO) CKD (chronic kidney disease) stage 2, GFR 60-89 ml/min -secondary to diabetic nephropathy -baseline Cr is around 1.0 -has FIONA superimposed on CKD likely due to dehydration; FIONA improving -continue to monitor renal function, avoid nephrotoxins, renally dose meds -off IVF hydration Coronary artery disease -hx of CAD s/p stenting -on ASA, Plavix; hold in case of surgery -not on statin Diabetes mellitus type 1 -noted hx of DM type I complicated by nephropathy and neuropathy -A1c-7.5 -Accuchecks, ISS, hypoglycemia precautions -hyperglycemia without DKA Diabetic gastroparesis -secondary to DM type I Hyperlipidemia Surgical History Below-knee amputation of left lower extremity H/O exploratory laparotomy x 3 Previous section x 3 S/P coronary artery stent placement x 1 S/P percutaneous endoscopic gastrostomy (PEG) tube placement Family History Unknown Diabetes extensive, type II Other CHF (congestive heart failure) Social History Smoking and tobacco status: never smoked Quit status (tobacco): has quit using tobacco Former quit date comment: 15 yrs ago Alcohol intake: former Former alcohol use details: 15 yrs ago Household members: spouse Marital status: Sexually active: Yes (1, ) Physical Exam Const: COMMON NORMALS: no acute distress, average body habitus and patient oriented x3 HENMT: COMMON NORMALS: normocephalic HEAD & SCALP: normal to inspection and normocephalic FACE & SINUS: normal facial exam Eye: COMMON NORMALS: conjunctivae normal GENERAL EYE: appearance normal, both eyes and all related structures CONJUNCTIVA: Yes conjunctivae normal Neck/C-Spine: COMMON NORMALS: no JVD Chest: COMMONS NORMALS: normal inspection of the chest Resp: COMMON NORMALS: normal respiratory effort and clear to auscultation bilaterally AUSCULTATION: clear to auscultation bilaterally Cardio: COMMON NORMALS: no JVD, regular rate and regular rhythm RATE: regular rate RHYTHM: regular rhythm GI: COMMON NORMALS: Normal to inspection, nondistended, normoactive bowel sounds present Extremity: COMMON NORMALS: normal to inspection and full ROM Neuro: COMMON NORMALS: patient oriented x3 Course Vital Signs: Vital signs: Vital Signs Temperature 98.2 F 02/04/20 12:05 Pulse Rate 90 02/04/20 12:05 Respiratory Rate 18 02/04/20 12:05 Blood Pressure 167/87 02/04/20 12:05 Pulse Oximetry 98 02/04/20 12:05 Discharge Plan Discharge Prescriptions: No Action clopidogrel [Plavix] 75 mg Tablet 75 mg PO DAILY RF: 0 aspirin [Aspir-81] 81 mg Tablet,Delayed Release (Dr/Ec) 81 mg PO DAILY RF: 0 carvedilol 3.125 mg tablet 3.125 mg PO Q12H RF: 0 insulin lispro [Humalog U-100 Insulin] 100 unit/mL Solution See Rx Instructions .ROUTE .COMPLEX RF: 0 lisinopril 2.5 mg tablet 2.5 mg PO DAILY RF: 0 Lantus Solostar U-100 Insulin 100 unit/mL (3 mL) Insulin Pen 10 unit SUBCUT BEDTIME RF: 0 pantoprazole 40 mg Tablet,Delayed Release (Dr/Ec) 40 mg PO BID 30 Days Qty: 60 RF: 0 oxycodone-acetaminophen 10-325 mg tablet 1 tab PO Q6H PRN (Reason: Moderate Pain) RF: 0 promethazine 25 mg tablet 25 mg PO Q6H PRN (Reason: nausea and vomiting) Qty: 30 RF: 0 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 Code ED Boat Dispatcher for Kim Mitchell
[2020-02-04] MEDS: ondansetron 2 mg/ML SDV 2 mL 4 MG IM (12:32)
[2020-02-04] MEDS: fentaNYL 50 mcg Patch 1 PATCH TRANSDERMA (12:32)
[2020-02-04 12:42] LABS: Add Urine Microscopic? NO
[2020-02-04 12:44] LABS: Basophils % 0.4 %; Eosinophils # 0.2 10^3/uL (0.0-0.8); Eosinophils % 2.2 %; Hemoglobin 9.4 g/dL (11.5-15.3); Lymphocytes # 1.4 10^3/uL (0.8-4.8); Lymphocytes % 19.1 %; Mean Corpuscular HGB Conc 31.3 g/dL (30.0-36.0); Mean Corpuscular Hemoglobin 28.7 pg (28.0-34.0); Mean Corpuscular Volume 91.5 fL (81-99); Mean Platelet Volume 8.4 fL (7.4-10.4); Monocytes # 0.5 10^3/uL (0.2-0.9); Monocytes % 6.9 %; Neutrophils # 5.1 10^3/uL (1.8-7.7); Nucleated Red Blood Cells % 0 %; Platelet Count 451 10^3/cmm (130-400); Red Blood Count 3.28 10^6/uL (4.1-5.3); Red Cell Distribution Width 12.8 % (12.1-15.1); White Blood Count 7.2 10^3/uL (4.0-10.0)
[2020-02-04 12:49] LABS: Bilirubin Urine Neg (NEGATIVE); Blood Urine Neg (Negative); Glucose Urine UA 4+ (Normal); Ketones Urine Negative (Negative); Leukocyte Esterase Urine Negative (Negative); Nitrate Urine Negative (Negative); Protein Urine Neg (Negative); Urine Appearance Clear (CLEAR); Urine Color Yellow (Yellow); Urobilinogen Urine Neg (Negative); pH Urine 6 (5-7)
[2020-02-04 12:58] LABS: Alanine Aminotransferase 9 U/L (0-33); Albumin Level 4.1 g/dL (3.5-5.2); Alkaline Phosphatase 124 IU/L (35-105); Anion Gap 17.5 (5-19); Aspartate Amino Transferase 14 U/L (0-32); Blood Urea Nitrogen 10 mg/dL (6-20); Calcium 9.4 mg/dL (8.5-10.5); Carbon Dioxide 23 mmol/L (22-29); Chloride 100 mmol/L (98-107); Globulin 3.7 g/dL (1.3-4.6); Glucose 193 mg/dL (65-115); Lipase 62 U/L (13-60); Osmolality Calculated 285 mOsm/kg (285-295); Potassium 3.5 mmol/L (3.5-5.1); Sodium 137 mmol/L (136-145); Total Bilirubin 0.2 mg/dL (0.15-1.2); Total Protein 7.8 g/dL (6.6-8.7)
--- NOTE | 2020-02-04 13:09 | XR_ITS ---
WS: [id number] XR KUB portable [id number] REASON FOR EXAM: pain FINDINGS: Scattered gas through the intestinal tract is seen. No air-fluid levels are noted. No free air is seen. There is evidence of previous cholecystectomy. XR/XR KUB portable [id number] IMPRESSION: Nonspecific findings.
[2020-02-04 13:42] VITALS: BP 150/86; PULSE 83; RESP 17; O2SAT 100
== END 2020-02-04 13:46 | disposition home or self-care (01) ==
PROVIDERS: Emergency Provider Nurse Practitioner Family
DX: R10.9 Unspecified abdominal pain (principal); Z79.02 Long term (current) use of antithrombotics/antiplatelets; Z79.82 Long term (current) use of aspirin; Z79.4 Long term (current) use of insulin; E10.22 Type 1 diabetes mellitus with diabetic chronic kidney disease; N18.2 Chronic kidney disease, stage 2 (mild); I25.10 Atherosclerotic heart disease of native coronary artery without angina pectoris; E78.5 Hyperlipidemia, unspecified; Z89.512 Acquired absence of left leg below knee; Z87.891 Personal history of nicotine dependence
CPT/HCPCS: 12345; 36415; 74018; 80053; 81003; 83690; 85025; 96372; 99282; 99283; J2405

== ENCOUNTER 2020-02-10 18:30 | Inpatient (IN) | payer SELFPAY ==
[2020-02-10 18:44] VITALS: BP 155/88; PULSE 88; RESP 16; TEMP 36.6; O2SAT 98; BMI 19.9
--- NOTE | 2020-02-10 19:38 | XRR_ITS ---
PROCEDURE INFORMATION: Exam: XR Right Foot Complete Exam date and time: 02/10/2020 7:59 PM Age: 39 years old Clinical indication: Pain; Foot; Right; Prior surgery; Surgery date: <1 month; Surgery type: Amputation x 3 weeks ago; Additional info: Infection, redness/swelling/pain TECHNIQUE: Imaging protocol: XR Right foot. Views: 3 or more views. COMPARISON: CR XR foot RT min 3V* [id number] 01/15/2020 7:50 PM FINDINGS: Bones/joints: Disarticulation at the level of the 1st metatarsal phalangeal joint. Soft tissue prominence/swelling about the above. Disarticulation at the level of the proximal interphalangeal joint of the 2nd ray. Soft tissues: See Bones/joints finding. XR/XR foot RT min 3V* [id number] IMPRESSION: 1. Disarticulation at the level of the 1st metatarsal phalangeal joint. Soft tissue prominence/swelling about the above. No erosive changes. Consider MRI if indicated. 2. Disarticulation at the level of the proximal interphalangeal joint of the 2nd ray.
--- NOTE | 2020-02-10 19:39 | ED_ITS ---
Documented by User: SAUMEL Maurice 02/10/20 22:14 HPI - Wound/Laceration General: Chief Complaint: Wound/Laceration Stated Complaint: foot swelling and pain Time Seen by Provider: 02/10/20 19:27 Source: patient Mode of arrival: ambulatory Limitations: no limitations History of Present Illness: HPI narrative: Patient is a 39-year-old female with a history of type 1 diabetes with associated neuropathy, HTN, CAD, gastroparesis, s/p L BKA, and recent R second toe amputation, excision of sesamoids, and resection of hallux here for complaints of redness, swelling, pain to her right foot. Patient was admitted to the hospital last month for the infection and underwent surgery by Dr. Sin on 01/14. Patient tells me she has missed all of her follow-up appointments with him due to not having a ride. Patient tells me she has been on clindamycin since discharge and believes she has one day left of this medication. She states over the past 2 to 3 days she has noticed redness, swelling, and pain to her foot. She is also reporting foul odor. There is drainage from her right second toe. She reports fevers at home however is afebrile upon arrival. Associated symptoms: Reports fever(s); Denies chills, nausea or vomiting Review of Systems Const: Reports: fever(s); Denies: chills, body aches, change in appetite, change in weight, fatigue or malaise Card: Denies: chest pain Resp: Denies: dyspnea GI: Denies: abdominal pain, nausea, vomiting, diarrhea or change in bowel habits : Denies: flank pain, difficulty voiding, dysuria, urinary frequency or urinary urgency Musc: Reports: extremity pain (R foot) and extremity swelling (R foot); Denies: neck pain or back pain Skin/Breast: Reports: erythema and skin swelling Neuro: Reports: numbness in extremities (chronic DM neuropathy) [facility] ED PFSH: Medical History (Updated 02/10/20 @ 21:44 by SAMUEL Maurice) CKD (chronic kidney disease) stage 2, GFR 60-89 ml/min -secondary to diabetic nephropathy -baseline Cr is around 1.0 -has FIONA superimposed on CKD likely due to dehydration; FIONA improving -continue to monitor renal function, avoid nephrotoxins, renally dose meds -off IVF hydration Coronary artery disease -hx of CAD s/p stenting -on ASA, Plavix; hold in case of surgery -not on statin Diabetes mellitus type 1 -noted hx of DM type I complicated by nephropathy and neuropathy -A1c-7.5 -Accuchecks, ISS, hypoglycemia precautions -hyperglycemia without DKA Diabetic gastroparesis -secondary to DM type I Hyperlipidemia Surgical History Below-knee amputation of left lower extremity H/O exploratory laparotomy x 3 Previous section x 3 S/P coronary artery stent placement x 1 S/P percutaneous endoscopic gastrostomy (PEG) tube placement Family History Unknown Diabetes extensive, type II Other CHF (congestive heart failure) Social History Smoking and tobacco status: former smoker Quit status (tobacco): has quit using tobacco Former quit date comment: 15 yrs ago Alcohol intake: former Former alcohol use details: 15 yrs ago Household members: spouse Marital status: Sexually active: Yes (1, ) Physical Exam Const: COMMON NORMALS: no acute distress, patient oriented x3, no limitations and alert GENERAL APPEARANCE: cooperative and appears older than stated age Resp: COMMON NORMALS: normal respiratory effort and clear to auscultation bilaterally AUSCULTATION: clear to auscultation bilaterally Cardio: COMMON NORMALS: regular rate and regular rhythm RATE: regular rate RHYTHM: regular rhythm Extremity: OTHER: pt has uniform diffuse swelling to R dorsal foot; she has intact sutures from surgery 3 weeks ago; she has foul smelling purulent drainage from distal 3rd toe; she reports pain up into her leg/calf but no swelling noted Neuro: COMMON NORMALS: patient oriented x3 SENSORIUM/ORIENTATION: Yes alert Course Consultations: Consultation #1: Dr. Maldonado-stated he usually does not intervene with diabetic foot debridement and recommends contacting general surgery Consultation #2: Dr. Soto-graciously agrees to consult on patient Consultation #3: Dr. Sin (had initially tried to contact him even though he was not inspection machine tender but was unsuccessful so contacted Joel/Charles). He did end up calling back but stated unfortunately he is not inspection machine tender and would not be available to consult on patient. Vital Signs: Vital signs: Vital Signs Temperature 97.8 F 02/10/20 18:44 Pulse Rate 88 02/10/20 18:44 Respiratory Rate 17 02/10/20 21:33 Blood Pressure 155/88 02/10/20 18:44 Pulse Oximetry 99 02/10/20 21:33 MDM - Wound/Laceration MDM Narrative: Medical decision making narrative: pt is not tachycardic or febrile; white count and lactate are normal; she does have an elevated CRP; she has been on clindamycin x 3 weeks and has developed recurrent infection; I have spoken to Dr. Espitia who agrees with need for admission-he will admit pt to hospitalist for IV abx; we will have Dr. Soto consult on patient Lab Data: Labs: Lab Results 02/10/20 02/10/20 02/10/20 Range/Units 18:54 18:54 18:54 WBC 9.0 (4.0-10.0) 10^3/ uL RBC 3.17 L (4.1-5.3) 10^6/u L Hgb 9.2 L (11.5-15.3) g/dL Hct 29.2 L (37.0-47.0) % MCV 92.1 (81-99) fL MCH 29.0 (28.0-34.0) pg MCHC 31.5 (30.0-36.0) g/dL RDW 13.5 (12.1-15.1) % Plt Count 366 (130-400) 10^3/c mm MPV 8.6 (7.4-10.4) fL Neut % (Auto) 75.6 % Lymph % (Auto) 14.8 % [place]han % (Auto) 6.8 % Eos % (Auto) 2.2 % Baso % (Auto) 0.3 % Neut # (Auto) 6.8 (1.8-7.7) 10^3/u L Lymph # (Auto) 1.3 (0.8-4.8) 10^3/u L [place] # (Auto) 0.6 (0.2-0.9) 10^3/u L Eos # (Auto) 0.2 (0.0-0.8) 10^3/u L Baso # (Auto) 0.0 (0.0-0.1) 10^3/u L Nucleated RBC % (a uto) 0 % Nucleated RBCs # 0.0 /100WBC Sodium 140 (136-145) mmol/L Potassium 3.4 L (3.5-5.1) mmol/L Chloride 103 (98-107) mmol/L Carbon Dioxide 23 (22-29) mmol/L Anion Gap 17.4 (5-19) BUN 16 (6-20) mg/dL Creatinine 0.8 (0.5-0.9) mg/dL GFR Calculation 79.0 L (90-130) mL/min Glucose 112 (65-115) mg/dL Calculated Osmolal ity 287 (285-295) mOsm/k g Lactate 0.8 (0.5-2.2) mmol/L Calcium 9.5 (8.5-10.5) mg/dL Total Bilirubin 0.2 (0.15-1.2) mg/dL AST 38 H (0-32) U/L ALT 27 (0-33) U/L Alkaline Phosphata se 251 H (35-105) IU/L C-Reactive Protein 41.6 H (0.0-4.9) mg/L Total Protein 8.5 (6.6-8.7) g/dL Albumin 4.2 (3.5-5.2) g/dL Globulin 4.3 (1.3-4.6) g/dL Imaging Data^: R LE venous US: My impression: per [facility] tech-no DVT R foot XR: My impression: post surgical changes noted from recent debridement; no obvious bony destruction to 3rd digit however there is small amount of subq air present Discharge Plan Discharge Patient Disposition: Admitted As Inpatient Clinical Impression: Diabetic infection of right foot, Failure of outpatient treatment Condition: Stable Sign Out Sign Out Data: Patient Sign Out occurred on 02/10/20 at 21:51. Patient's care was discussed, and care was transferred from to Lynsey Espitia. 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 Code ED Bookkeeper Assistant for Kim Fwd Exam Expanded Problem Focused Documented by User: Lynsey Espitia 02/10/20 21:58 HPI - Wound/Laceration General: Chief Complaint: Wound/Laceration Stated Complaint: foot swelling and pain Time Seen by Provider: 02/10/20 19:27 PFSH ED PFSH: Medical History (Updated 02/10/20 @ 21:44 by SAMUEL Maurice) CKD (chronic kidney disease) stage 2, GFR 60-89 ml/min -secondary to diabetic nephropathy -baseline Cr is around 1.0 -has FIONA superimposed on CKD likely due to dehydration; FIONA improving -continue to monitor renal function, avoid nephrotoxins, renally dose meds -off IVF hydration Coronary artery disease -hx of CAD s/p stenting -on ASA, Plavix; hold in case of surgery -not on statin Diabetes mellitus type 1 -noted hx of DM type I complicated by nephropathy and neuropathy -A1c-7.5 -Accuchecks, ISS, hypoglycemia precautions -hyperglycemia without DKA Diabetic gastroparesis -secondary to DM type I Hyperlipidemia Surgical History Below-knee amputation of left lower extremity H/O exploratory laparotomy x 3 Previous section x 3 S/P coronary artery stent placement x 1 S/P percutaneous endoscopic gastrostomy (PEG) tube placement Family History Unknown Diabetes extensive, type II Other CHF (congestive heart failure) Social History Smoking and tobacco status: former smoker Quit status (tobacco): has quit using tobacco Former quit date comment: 15 yrs ago Alcohol intake: former Former alcohol use details: 15 yrs ago Household members: spouse Marital status: Sexually active: Yes (1, ) Course Vital Signs: Vital signs: Vital Signs Temperature 97.8 F 02/10/20 18:44 Pulse Rate 88 02/10/20 18:44 Respiratory Rate 17 02/10/20 21:33 Blood Pressure 155/88 02/10/20 18:44 Pulse Oximetry 99 02/10/20 21:33 MDM - Wound/Laceration MDM Narrative: Medical decision making narrative: Patient was seen and evaluated by me. I agree with Aracelis Ding PAs assessment and plan. Lab Data: Labs: Lab Results 02/10/20 02/10/20 02/10/20 Range/Units 18:54 18:54 18:54 WBC 9.0 (4.0-10.0) 10^3/ uL RBC 3.17 L (4.1-5.3) 10^6/u L Hgb 9.2 L (11.5-15.3) g/dL Hct 29.2 L (37.0-47.0) % MCV 92.1 (81-99) fL MCH 29.0 (28.0-34.0) pg MCHC 31.5 (30.0-36.0) g/dL RDW 13.5 (12.1-15.1) % Plt Count 366 (130-400) 10^3/c mm MPV 8.6 (7.4-10.4) fL Neut % (Auto) 75.6 % Lymph % (Auto) 14.8 % [place]han % (Auto) 6.8 % Eos % (Auto) 2.2 % Baso % (Auto) 0.3 % Neut # (Auto) 6.8 (1.8-7.7) 10^3/u L Lymph # (Auto) 1.3 (0.8-4.8) 10^3/u L [place] # (Auto) 0.6 (0.2-0.9) 10^3/u L Eos # (Auto) 0.2 (0.0-0.8) 10^3/u L Baso # (Auto) 0.0 (0.0-0.1) 10^3/u L Nucleated RBC % (a uto) 0 % Nucleated RBCs # 0.0 /100WBC Sodium 140 (136-145) mmol/L Potassium 3.4 L (3.5-5.1) mmol/L Chloride 103 (98-107) mmol/L Carbon Dioxide 23 (22-29) mmol/L Anion Gap 17.4 (5-19) BUN 16 (6-20) mg/dL Creatinine 0.8 (0.5-0.9) mg/dL GFR Calculation 79.0 L (90-130) mL/min Glucose 112 (65-115) mg/dL Calculated Osmolal ity 287 (285-295) mOsm/k g Lactate 0.8 (0.5-2.2) mmol/L Calcium 9.5 (8.5-10.5) mg/dL Total Bilirubin 0.2 (0.15-1.2) mg/dL AST 38 H (0-32) U/L ALT 27 (0-33) U/L Alkaline Phosphata se 251 H (35-105) IU/L C-Reactive Protein 41.6 H (0.0-4.9) mg/L Total Protein 8.5 (6.6-8.7) g/dL Albumin 4.2 (3.5-5.2) g/dL Globulin 4.3 (1.3-4.6) g/dL Discharge Plan Discharge Patient Disposition: Admitted As Inpatient Clinical Impression: Diabetic infection of right foot, Failure of outpatient treatment Condition: Stable Sign Out Sign Out Data: Patient Sign Out occurred on 02/10/20 at 21:51. Patient's care was discussed, and care was transferred from to Lynsey Roth [facility]. 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 Code ED Bookkeeper Assistant for Kim Fwd Exam Expanded Problem Focused
--- NOTE | 2020-02-10 19:42 | USCV_ITS ---
Cherrie Steel Age: 39 Gender: F : 1980 Exam Date: 02/10/2020 20:26 Ordering Phys: Aracelis Ding Technologist: HUMBERTO MAHAJAN [place] [facility] [place]: FOOT INFECTION. LEG/ PAIN SWELLING PROCEDURES: Venous duplex imaging was performed in only the right lower extremity. The following venous structures were evaluated: common femoral vein, profunda vein, proximal portion of the greater saphenous vein, superficial femoral vein, and the popliteal vein. In addition, the posterior tibial and peroneal trunk were evaluated. Serial compression, augmentation maneuvers, and spectral Doppler flow evaluation were performed. FINDINGS: Normal 2-D Doppler and augmentation and compressibility throughout the lower extremity venous structures. Additional imaging through the proximal calf veins also reveals no thrombus. Limited evaluation of the greater saphenous vein is patent with no thrombus. Enlarged hyperemic reactive lymph nodes at the right groin, largest measures 2.46 X 1.09 X 2.24 cm. CONCLUSIONS No DVT right lower extremity. There is subcutaneous right lower extremity edema noted. Reactive lymph nodes at the right groin. Dr. Ophelia Escobar DO (Electronically Signed) Final Date: 11 February 2020 08:02 S
[2020-02-10 20:03] LABS: Basophils % 0.3 %; Eosinophils # 0.2 10^3/uL (0.0-0.8); Eosinophils % 2.2 %; Hematocrit 29.2 % (37.0-47.0); Hemoglobin 9.2 g/dL (11.5-15.3); Lymphocytes # 1.3 10^3/uL (0.8-4.8); Lymphocytes % 14.8 %; Mean Corpuscular HGB Conc 31.5 g/dL (30.0-36.0); Mean Corpuscular Volume 92.1 fL (81-99); Mean Platelet Volume 8.6 fL (7.4-10.4); Monocytes # 0.6 10^3/uL (0.2-0.9); Monocytes % 6.8 %; Neutrophils # 6.8 10^3/uL (1.8-7.7); Neutrophils % 75.6 %; Nucleated Red Blood Cells % 0 %; Platelet Count 366 10^3/cmm (130-400); Red Blood Count 3.17 10^6/uL (4.1-5.3); Red Cell Distribution Width 13.5 % (12.1-15.1)
[2020-02-10 20:17] LABS: Lactate (Lactic Acid level) 0.8 mmol/L (0.5-2.2)
[2020-02-10 20:18] LABS: Alanine Aminotransferase 27 U/L (0-33); Albumin Level 4.2 g/dL (3.5-5.2); Alkaline Phosphatase 251 IU/L (35-105); Anion Gap 17.4 (5-19); Aspartate Amino Transferase 38 U/L (0-32); Blood Urea Nitrogen 16 mg/dL (6-20); C Reactive Protein 41.6 mg/L (0.0-4.9); Calcium 9.5 mg/dL (8.5-10.5); Carbon Dioxide 23 mmol/L (22-29); Chloride 103 mmol/L (98-107); Globulin 4.3 g/dL (1.3-4.6); Glucose 112 mg/dL (65-115); Osmolality Calculated 287 mOsm/kg (285-295); Potassium 3.4 mmol/L (3.5-5.1); Sodium 140 mmol/L (136-145); Total Bilirubin 0.2 mg/dL (0.15-1.2); Total Protein 8.5 g/dL (6.6-8.7)
[2020-02-10 21:33] VITALS: RESP 17; O2SAT 99
[2020-02-10] MEDS: fentaNYL 50 mcg/mL INJ 2mL IVP (21:33)
[2020-02-10] MEDS: vancomycin 1,000 MG in sodium chloride 0.9% 250 ML 250 MG IV (21:34)
--- NOTE | 2020-02-10 21:39 | CTR_ITS ---
PROCEDURE INFORMATION: Exam: CT Right Lower Extremity Without Contrast; Lower Leg Exam date and time: 02/10/2020 9:46 PM Age: 39 years old Clinical indication: Swelling, leg or foot; Prior surgery; Surgery type: RT foot; Additional info: Foot infections TECHNIQUE: Imaging protocol: CT of the Right lower extremity without contrast was performed. Exam focused on the lower leg. Radiation optimization: All CT scans at this facility use at least one of these dose optimization techniques: automated exposure control; mA and/or kV adjustment per patient size (includes targeted exams where dose is matched to clinical indication); or iterative reconstruction. COMPARISON: MR foot RT wo con* [id number] 01/14/2020 2:40 PM RADIATION DOSE METRICS: Total DLP (mGy-cm): 1540.95 1540.95 FINDINGS: Bones/joints: Osteopenia. 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 No CT evidence of acute fracture or dislocation. Alignment anatomic. Mild degenerative changes. No erosive or destructive changes. No lytic or blastic lesion. Small suprapatellar effusion with evidence of synovitis. Soft tissues: Approximately 3 x 2.2 x 2.2 cm loculated, peripherally enhancing fluid collection abutting the distal, plantar and medial aspects of the hallux metatarsal head. Diffuse soft tissue swelling and subcutaneous edema, becoming most confluent about the ankle and along the dorsum of the foot. Minimal loculated subcutaneous fluid in the prepatellar region, tracking along the superficial aspect of the patellar tendon. Small popliteal cyst. Vasculature: Severe atherosclerotic disease. CT/CT lower leg RT w con [id number] IMPRESSION: 1. Diffuse cellulitis with abscess formation about the hallux metatarsal head, as described above. 2. Probable prepatellar bursitis. Superimposed infection cannot be excluded. 3. Additional findings, as above. Radiation Dose CTDIVOL = (mGy): DLP = 1540.95 (mGy-cm)
[2020-02-10] MEDS: piperacillin-tazobactam 3.375 GM in sodium chloride 0.9% (plus) 50 ML IV (21:45)
[2020-02-10] MEDS: iohexol 300 mg/mL 100 mL Btl IV (22:02)
--- NOTE | 2020-02-10 22:03 | P.HP_ITS ---
Providers/Chief Complaint Chief Complaint: foot swelling and pain History of Present Illness Cherrie Steel is a 39 year old female with history of type 1 diabetes, Charcot foot, peripheral neuropathy, gastroparesis requiring PEG tube placement in the past, left below-knee amputation, recent partial amputation of right second toe by Dr. Sin coming in with chief complaint of worsening right leg pain and swelling. Patient is stating that she noticed swelling about 2 to 3 days ago, she tried to keep her leg elevated but did not help her symptoms, she did not experience any fever, chills, vomiting, today she started experiencing pain in her leg which was getting worse, she is not able to bear weight on her foot anymore. She is stating that about 3 weeks ago when she was trying to remove the blanket it plucked out her nail from third toe and since then her wound has been getting worse and today she also noticed a blister on her third toe. Her blood sugar lately has been ranging between 1 20-1 40s, her Lantus dose has been decreased to 5 units at 10 because of hypoglycemia. Diagnosis in the ER revealed worsening cellulitis of third toe She has been started on vancomycin and Zosyn, Dr. Soto has been consulted as Dr. Sin is not on-call tonight I have requested CT of her leg to rule out necrotizing fasciitis because of disproportionate pain, No signs of sepsis Review of records Patient was admitted last month for right second toe osteomyelitis underwent partial amputation wound excision with skin flap closure, excision of proximal phalanx base and sesamoid on 01/15/2020, tissue culture from the OR revealed MRSA strep saprophyticus and corynebacterium, 01/17 pathology report of bone resection showed that bone margin was free of osteomyelitis She was discharged on clindamycin 14-day regimen on 01/24/2020 Review of Systems Const: Reports: body aches and fatigue; Denies: fever(s), chills, change in appetite, night sweats or diaphoresis Eyes: Denies: change in vision ENMT: Denies: throat pain Card: Denies: chest pain Resp: Denies: dyspnea GI: Reports: nausea; Denies: abdominal pain or vomiting : Denies: flank pain Musc: Reports: extremity pain, extremity swelling, joint pain, joint swelling, joint redness, joint warmth, joint stiffness, limited range of motion, muscle cramps and decrease in muscle mass; Denies: neck pain Skin/Breast: Reports: skin pain, skin tenderness, skin swelling, new lesions and changing lesions Neuro: Denies: headache(s) Psych: Reports: anxiety and depression Endo: Denies: polyuria Keith/Lymph: Denies: easy bruising All/Imm: Denies: urticaria Medications/Allergies Home Medications Medication Instructions Recorded Confirmed Last Taken Type Lantus Solostar U-100 Insulin 5 unit SUBCUT BEDTIME 01/13/20 02/10/20 02/09/20 History aspirin [Aspir-81] 81 mg PO DAILY 01/13/20 02/10/20 02/10/20 History carvedilol 3.125 mg PO Q12H 01/13/20 02/10/20 02/10/20 History clopidogrel [Plavix] 75 mg PO DAILY 01/13/20 02/10/20 02/10/20 History insulin lispro [Humalog U-100 See Rx Instructions .ROUTE .COMPLEX 01/13/20 02/10/20 02/01/20 History Insulin] lisinopril 2.5 mg PO DAILY 01/13/20 02/10/20 02/10/20 History pantoprazole 40 mg PO BID 30 Days #60 tab 01/17/20 02/10/20 02/10/20 Rx oxycodone-acetaminophen 1 tab PO Q6H PRN 01/20/20 02/10/20 02/10/20 History promethazine 25 mg PO Q6H PRN #30 tab 02/03/20 02/10/20 02/01/20 Rx Allergies Allergy/AdvReac Type Severity Reaction Status Date / Time morphine Allergy ALGY-Difficulty Verified 02/10/20 20:01 Breathing PFSH Acute PFSH: Medical History CKD (chronic kidney disease) stage 2, GFR 60-89 ml/min -secondary to diabetic nephropathy -baseline Cr is around 1.0 -has FIONA superimposed on CKD likely due to dehydration; FIONA improving -continue to monitor renal function, avoid nephrotoxins, renally dose meds -off IVF hydration Coronary artery disease -hx of CAD s/p stenting -on ASA, Plavix; hold in case of surgery -not on statin Diabetes mellitus type 1 -noted hx of DM type I complicated by nephropathy and neuropathy -A1c-7.5 -Accuchecks, ISS, hypoglycemia precautions -hyperglycemia without DKA Diabetic gastroparesis -secondary to DM type I Hyperlipidemia Surgical History Below-knee amputation of left lower extremity H/O exploratory laparotomy x 3 Previous section x 3 S/P coronary artery stent placement x 1 S/P percutaneous endoscopic gastrostomy (PEG) tube placement Family History Unknown Diabetes extensive, type II Other CHF (congestive heart failure) Social History Smoking and tobacco status: former smoker Quit status (tobacco): has quit using tobacco Former quit date comment: 15 yrs ago Alcohol intake: former Former alcohol use details: 15 yrs ago Household members: spouse Marital status: Sexually active: Yes (1, ) Vitals/I&O/Wt Last Vital Signs Temp 97.8 F 02/10/20 18:44 Pulse 88 02/10/20 18:44 Resp 17 02/10/20 21:33 BP 155/88 02/10/20 18:44 Pulse Ox 99 02/10/20 21:33 Weight last 48 hrs Weight 61.235 kg Physical Exam Narrative: EXAM NARRATIVE: Head to toe examination Patient sitting in her bed without any active discomfort On palpation of her right lower extremity there is disproportionate pain to to uch Swelling extending from her right third to up to her right knee I did not feel any crepitation There is a blister on right toe dorsal side with purulent drainage Dorsalis pedis pulse palpable 2+ No active redness noted S1, S2 no signs of heart failure Abdomen soft nontender nondistended, multiple scar arambula on abdominal wall from previous surgeries and PEG tube placement Bilateral breath sounds without adventitious sounds Neurologically nonfocal exam Appropriate mood and affect Right lower extremity edema and disproportionate pain Data : 02/10/20 18:54 02/10/20 18:54 Micro: Microbiology 02/10/20 18:55 Blood Culture - Preliminary Blood SPECIMEN COLLECTED 02/10/20 18:54 Blood Culture - Preliminary Blood SPECIMEN COLLECTED A&P Assessment and plan (1) Foot osteomyelitis, right: Status: Acute (2) Cellulitis: Status: Acute (3) Failure of outpatient treatment: Status: Acute (4) Diabetic infection of right foot: Status: Acute (5) History of amputation of right forefoot: Status: Acute Additional A&P Information Worsening diabetic right-sided foot ulcer Concern for necrotizing fasciitis because of disproportionate pain on palpation on clinical exam, I have requested CT of right lower extremity on stat basis in the ER Would continue vancomycin, Zosyn and clindamycin (toxin suppression) Previous culture from the OR revealed MRSA, strep saprophyticus and Corynebacterium Patient does not show any signs of sepsis on admission, she has leukocytosis without fever tachycardia, will request lactic acid Dr. Soto has been consulted, will notify surgeon if we need to take her to the OR on immediate basis Type 1 diabetes Consistent carb diet, I will keep her on sliding scale Avoid Lantus for now as I am anticipating amputation of her third distal phalanx in the morning Diabetic gastroparesis without active decompensation She is able to tolerate diet Chronic kidney disease stage II No active worsening of her kidney function Below-knee amputation of left extremity No active wound Fall precautions Coronary disease without any active chest pain Hold Plavix and continue aspirin, holding Plavix in anticipation of surgery GI prophylaxis PPI DVT prophylaxis: To be avoided in case she will need surgical intervention in the morning Consistent carb diet, n.p.o. after midnight Full code Attestations Medical Necessity Statement*: Anticipating stay in the hospital to cross more than 2 midnights currently need surgical intervention for worsening diabetic foot ulcer, suspicion is high for third toe osteomyelitis currently requiring IV antibiotics Time Spent in Patient Care: (>than 50% of time spent in counselling and/or direct pt care on unit) . 45mins 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 Code Acute Urology Physician Assistant for [facility] Fwd Diagnoses Foot osteomyelitis, right M86.9 Cellulitis L03.90 Failure of outpatient treatment Z78.9 Diabetic infection of right foot E11.628; L08.9 History of amputation of right forefoot Z89.431
[2020-02-10 23:11] VITALS: BP 131/74; PULSE 68; RESP 17; O2SAT 98
[2020-02-10 23:47] VITALS: BP 157/96; PULSE 81; RESP 16; TEMP 36.7; O2SAT 100
[2020-02-10 23:54] VITALS: BP 157/96; PULSE 81; RESP 16; TEMP 36.7; O2SAT 100
[2020-02-10 23:54] LABS: HCG, Serum Qual Negative (Negative)
[2020-02-11] VITALS (10 sets, daily range): BP systolic 137–152; BP diastolic 68–82; PULSE 62–75; RESP 12–20; TEMP 36.3–36.9; O2SAT 98–100
[2020-02-11] MEDS: sodium chloride 0.9% 1,000 ML 75 ML IV ×2 (00:03→14:40)
[2020-02-11] MEDS: potassium chloride ER 10 mEq Tablet 40 MEQ PO (00:04)
[2020-02-11] MEDS: carvedilol 3.125 mg Tablet PO ×3 (00:04→23:51)
--- NOTE | 2020-02-11 00:22 | PC.PHAR ---
Vancomycin is dosed at 1gm IVPB ever 12 hours to produce a predicted trough level of 15.73 (population based pharmacokinetic analysis). A trough level has been ordered from the lab to be obtained before the fourth dose to confirm and adjust if needed. The Zosyn is dosed at 3.375gm IVPB ever 8 hours, each dose to be infused over 4 hours per extended infusion protocol.
[2020-02-11 03:00] LABS: Basophils % 0.5 %; Eosinophils # 0.2 10^3/uL (0.0-0.8); Eosinophils % 2.2 %; Hematocrit 25.8 % (37.0-47.0); Hemoglobin 8.2 g/dL (11.5-15.3); Lymphocytes # 1.6 10^3/uL (0.8-4.8); Lymphocytes % 18.8 %; Mean Corpuscular HGB Conc 31.8 g/dL (30.0-36.0); Mean Corpuscular Hemoglobin 28.7 pg (28.0-34.0); Mean Corpuscular Volume 90.2 fL (81-99); Mean Platelet Volume 8.6 fL (7.4-10.4); Monocytes # 0.7 10^3/uL (0.2-0.9); Monocytes % 7.6 %; Neutrophils % 70.5 %; Nucleated Red Blood Cells % 0 %; Platelet Count 316 10^3/cmm (130-400); Red Blood Count 2.86 10^6/uL (4.1-5.3); Red Cell Distribution Width 13.5 % (12.1-15.1); White Blood Count 8.5 10^3/uL (4.0-10.0)
[2020-02-11 03:30] LABS: Blood Urea Nitrogen 13 mg/dL (6-20); C Reactive Protein 32.9 mg/L (0.0-4.9); Calcium 9.2 mg/dL (8.5-10.5); Carbon Dioxide 22 mmol/L (22-29); Chloride 102 mmol/L (98-107); Glomerular Filtration Rate 92.2 mL/min (90-130); Glucose 121 mg/dL (65-115); Osmolality Calculated 281 mOsm/kg (285-295); Sodium 137 mmol/L (136-145)
[2020-02-11] MEDS: HYDROmorphone 1 mg/mL INJ 1 mL IVP ×5 (03:37→20:55)
[2020-02-11] MEDS: metoclopramide 5 mg/mL SDV 2 mL IVP ×4 (03:41→20:56)
[2020-02-11 06:09] LABS: Glucose Point of Care 133 mg/dL (70-110)
[2020-02-11] MEDS: piperacillin-tazobactam 3.375 GM in sodium chloride 0.9% (plus) 50 ML IV ×2 (06:29→14:40)
[2020-02-11 09:03] LABS: Iron 29 ug/dL (37-145)
[2020-02-11 09:04] LABS: Ferritin 139 ng/mL (15-150); Iron 29 ug/dL (37-145); Total Iron Binding Capacity 240 mcg/dl; Unsaturated Iron Binding 211 ug/dL (112-347)
[2020-02-11 09:16] LABS: Erythrocyte Sedimentation Rate 69 mm/hr (0-15)
[2020-02-11 09:18] LABS: Folate Level 2.7 ng/mL (4.8-37.3)
[2020-02-11 09:19] LABS: Vitamin B12 151 pg/mL (232-1245)
[2020-02-11] MEDS: pantoprazole DR 40 mg Tablet PO ×2 (09:28→17:22)
[2020-02-11] MEDS: clindamycin 150 mg Capsule 300 MG PO ×2 (09:28→14:40)
[2020-02-11] MEDS: aspirin 81 mg EC Tablet PO (09:28)
--- NOTE | 2020-02-11 10:38 | PC.CHAP ---
Pastoral Care Encounter/Spiritual Assessment Type of Contact [] Declined lean coach visit [] Patient/Family/Request visit [] Outpatient visit [] Follow-up visit [] Physician referral [] Code/Alert [x] Routine visit [] Staff referral [] Actively dying [] Patient sleeping [] Family support [] [] Out of room [] Palliative care [] [] Receiving care in room [] Pre-surgical visit [] Trauma [] Long length of stay [] ICU visit [] Other: Relational/Emotional Strength [x] Patient feels connected with others/family/visitors/staff [] Distress [] Loneliness/isolation [] Abandonment Spirituality of Patient [x] Person of Vanessa [x] Attends Mosque of their Vanessa [x] Believes in Prayer [] Reads Bible or Sabianist materials [] There are Spiritual issues 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 [x] Prayer [x] Active listening [x] Non-anxious presence [x] Spiritual/emotional support [] Crisis/trauma care [] Spiritual counseling [] Bereavement support [] Provided bereavement packet [] Provided Bible/devotional materials [] Provided toy/stuffed animal, coloring book to patient or family member [] Provided Communion [] Anointing/Daniels [] Salvation [] Completed spiritual assessment [] Other: Impact on Illness or Injury [] Angry [] Fearful [] Anxious [] Often cries [] Exhaustion [] Unable to work [] Unable to attend amish [] Unable to walk/stand [] Unable to read [] Unable to drive [] Unable to eat/drink [] Unable to sleep [] Unable to be with family [] Patient intubated [x] Other: Summary Patient stated she was tired, prayer provided. Time spent with patient 5 minutes
[2020-02-11] MEDS: vancomycin 1,000 MG in sodium chloride 0.9% 250 ML 250 MG IV ×2 (11:15→23:55)
[2020-02-11 11:27] LABS: Glucose Point of Care 131 mg/dL (70-110)
--- NOTE | 2020-02-11 12:36 | P.PN_ITS ---
Subjective Subjective: Interval history: This morning patient is laying in bed, is complaining of foot pain, no fevers, no chills, no nausea, no vomiting patient went had one episode of emesis Vitals/I&O/Wt Last Vital Signs Temp 97.4 F L 02/11/20 12:00 Pulse 62 02/11/20 12:00 Resp 12 02/11/20 12:00 BP 137/68 02/11/20 12:00 Pulse Ox 100 02/11/20 12:00 02/10/20 02/11/20 02/11/20 22:59 06:59 14:59 Intake Total 350 / 350 Output Total 1200 / 1200 Balance -1200 / -1200 350 / 350 Weight last 48 hrs Weight 61.235 kg Physical Exam Const: COMMON NORMALS: no acute distress and patient oriented x3 HENMT: COMMON NORMALS: normocephalic HEAD & SCALP: normocephalic Neck/C-Spine: COMMON NORMALS: no JVD Resp: COMMON NORMALS: normal respiratory effort, No retractions, No use of accessory muscles and clear to auscultation bilaterally AUSCULTATION: clear to auscultation bilaterally Cardio: COMMON NORMALS: no JVD, regular rate, regular rhythm, S1 normal heart sound present and S2 normal heart sound present RATE: regular rate RHYTHM: regular rhythm HEART SOUNDS: S1 normal heart sound present and S2 normal heart sound present GI: COMMON NORMALS: Normal to inspection, nondistended, normoactive bowel nayan nds present, Soft to palpation, non-tender, No hepatosplenomegaly present, no masses and no bruits PALPATION: Yes Soft to palpation and Yes No hepatosplenomegaly present Extremity: NARRATIVE EXTREMITY EXAM: Left BKA site Right lower extremity, third digit, has erythema, swelling, tenderness, extending to the forefoot Neuro: COMMON NORMALS: patient oriented x3 Psych: COMMON NORMALS: mental status grossly normal Data : 02/11/20 02:34 02/11/20 02:34 Micro: Microbiology 02/10/20 21:35 Gram Stain - Final Toe - Right Middle 02/10/20 18:55 Blood Culture - Preliminary Blood SPECIMEN COLLECTED 02/10/20 18:54 Blood Culture - Preliminary Blood SPECIMEN COLLECTED A&P Assessment and plan (1) Foot osteomyelitis, right: Status: Acute (2) Cellulitis: Status: Acute (3) Failure of outpatient treatment: Status: Acute (4) Diabetic infection of right foot: Status: Acute (5) History of amputation of right forefoot: Status: Acute Additional A&P Information Worsening diabetic right-sided foot ulcer with cellulitis and underlying abscess CT scan shows diffuse cellulitis with abscess formation about the hallux metatarsal CRP 32.9, lactic acid 1, ESR 69 Would continue vancomycin, Zosyn and clindamycin (toxin suppression) Previous culture from the OR revealed MRSA, strep saprophyticus and Corynebacterium Patient does not show any signs of sepsis on admission, she has leukocytosis without fever tachycardia, will request lactic acid Dr. Soto has been consulted, n.p.o., possible surgical intervention notify surgeon if we need to take her to the OR on immediate basis Acute on chronic anemia, hemoglobin 8.2 multifactorial, has B12 and folate defi ciency, evidence of iron deficiency as ferritin is 139 with acute infection, iron levels low at 29 Type 1 diabetes Consistent carb diet, I will keep her on sliding scale Avoid Lantus for now as I am anticipating amputation of her third distal phalanx in the morning Diabetic gastroparesis without active decompensation She is able to tolerate diet Chronic kidney disease stage II No active worsening of her kidney function Below-knee amputation of left extremity No active wound Fall precautions Coronary disease without any active chest pain Hold Plavix and continue aspirin, GI prophylaxis PPI DVT prophylaxis: To be avoided in case she will need surgical intervention in the morning Consistent carb diet, n.p.o. after midnight Full code Attestations Medical Necessity Statement*: patient requires hospitilization inpatient, right foot celullits and abscess 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 Code Acute Assistant Reading Teacher for [facility] Diagnoses Foot osteomyelitis, right M86.9 Cellulitis L03.90 Failure of outpatient treatment Z78.9 Diabetic infection of right foot E11.628; L08.9 History of amputation of right forefoot Z89.431
--- NOTE | 2020-02-11 14:23 | P.CONIM_ITS ---
Providers/Reason For Consult Consulting Physican/Specialty*: Dr. Jones Reason for Consult*: Right foot cellulitis Attending Physician: Gracia Gonzalez MD History of Present Illness History of Present Illness Cherrie Steel is a 39 year old female who had recently undergone right second toe amputation and delayed primary closure of right plantar forefoot on January 15, 2020. Patient was due to see Dr. Sin last week but she could not get a ride. She presented to the ER yesterday with 2 to 3-day history of increasing pain redness and swelling in the right foot around the surgical site. Patient denies any fevers or chills. No significant purulent drainage noted. Dr. Sin was consulted and he said he would not be albe to see the patient. Meds/Allergies Home Medications and Allergies Home Medications Medication Instructions Recorded Confirmed Last Taken Type Lantus Solostar U-100 Insulin 5 unit SUBCUT BEDTIME 01/13/20 02/10/20 02/09/20 History aspirin [Aspir-81] 81 mg PO DAILY 01/13/20 02/10/20 02/10/20 History carvedilol 3.125 mg PO Q12H 01/13/20 02/10/20 02/10/20 History clopidogrel [Plavix] 75 mg PO DAILY 01/13/20 02/10/20 02/10/20 History insulin lispro [Humalog U-100 See Rx Instructions .ROUTE .COMPLEX 01/13/20 02/10/20 02/01/20 History Insulin] lisinopril 2.5 mg PO DAILY 01/13/20 02/10/20 02/10/20 History pantoprazole 40 mg PO BID 30 Days #60 tab 01/17/20 02/10/20 02/10/20 Rx oxycodone-acetaminophen 1 tab PO Q6H PRN 01/20/20 02/10/20 02/10/20 History promethazine 25 mg PO Q6H PRN #30 tab 02/03/20 02/10/20 02/01/20 Rx gabapentin 300 mg PO QID 02/11/20 02/11/20 02/10/20 08:00 History Allergies Allergy/AdvReac Type Severity Reaction Status Date / Time morphine Allergy ALGY-Difficulty Verified 02/10/20 20:01 Breathing Current Medications Current Medications Generic Name Dose Route Start Last Admin Trade Name Freq PRN Reason Stop Dose Admin Aspirin 81 mg 02/11/20 09:00 02/11/20 09:28 Aspirin Ec PO 81 mg DAILY DAWSON Administration Carvedilol 3.125 mg 02/10/20 23:34 02/11/20 11:17 Coreg PO 3.125 mg Q12H DAWSON Administration Clindamycin HCl 300 mg 02/11/20 09:00 02/11/20 09:28 Cleocin PO 300 mg TID DAWSON Administration Protocol Hydromorphone HCl 1 mg 02/10/20 23:34 02/11/20 11:16 Dilaudid Inj IVP 1 mg Q4H PRN Administration Moderate pain Vancomycin HCl 1,000 mg/ 250 mls @ 250 mls/hr 02/11/20 07:00 02/11/20 11:15 Sodium Chloride IV 250 mls/hr Q12H DAWSON Administration Protocol As Directed Piperacillin Sod/Tazobactam 50 mls @ 12.5 mls/hr 02/10/20 23:34 02/11/20 11:39 Sod 3.375 gm/ Sodium Chloride IV Infused Q8H DAWSON Infusion Protocol As Directed Sodium Chloride 1,000 mls @ 75 mls/hr 02/10/20 23:34 02/11/20 00:03 Sodium Chloride 0.9% IV 75 mls/hr .[id number] DAWSON Administration Insulin Aspart 0 unit 02/11/20 08:00 02/11/20 11:38 Novolog SUBCUT Not Given WM&BEDTIME DAWSON Protocol Metoclopramide HCl 5 mg 02/10/20 23:34 02/11/20 07:35 Reglan IVP 5 mg Q6H PRN Administration vomiting Pantoprazole Sodium 40 mg 02/11/20 09:00 02/11/20 09:28 Protonix PO 40 mg BID DAWSON Administration PFSH Acute PFSH: Medical History CKD (chronic kidney disease) stage 2, GFR 60-89 ml/min -secondary to diabetic nephropathy -baseline Cr is around 1.0 -has FIONA superimposed on CKD likely due to dehydration; FIONA improving -continue to monitor renal function, avoid nephrotoxins, renally dose meds -off IVF hydration Coronary artery disease -hx of CAD s/p stenting -on ASA, Plavix; hold in case of surgery -not on statin Diabetes mellitus type 1 -noted hx of DM type I complicated by nephropathy and neuropathy -A1c-7.5 -Accuchecks, ISS, hypoglycemia precautions -hyperglycemia without DKA Diabetic gastroparesis -secondary to DM type I Hyperlipidemia Surgical History Below-knee amputation of left lower extremity H/O exploratory laparotomy x 3 Previous section x 3 S/P coronary artery stent placement x 1 S/P percutaneous endoscopic gastrostomy (PEG) tube placement Family History Unknown Diabetes extensive, type II Other CHF (congestive heart failure) Social History Smoking and tobacco status: former smoker Quit status (tobacco): has quit using tobacco Former quit date comment: 15 yrs ago Alcohol intake: former Former alcohol use details: 15 yrs ago Household members: spouse Marital status: Sexually active: Yes (1, ) Vitals/I&O/Wt Last Vital Signs Temp 97.4 F L 02/11/20 12:00 Pulse 62 02/11/20 12:00 Resp 12 02/11/20 12:00 BP 137/68 02/11/20 12:00 Pulse Ox 100 02/11/20 12:00 02/10/20 02/11/20 02/11/20 22:59 06:59 14:59 Intake Total 350 / 350 Output Total 1200 / 1200 Balance -1200 / -1200 350 / 350 Weight last 48 hrs Weight 135 lb Physical Exam Narrative: EXAM NARRATIVE: HEENT: Normocephalic Eye: Sclera /conjunctiva normal Abdomen: Soft to palpation Neurological: Oriented to place person and time Skin: Intact, left BKA, right foot mild cellulitis, Tender, incisions at the surgical site on the second toe and right forefoot incision appears to be well-healed. Data Micro: Micro: Microbiology 02/10/20 21:35 Gram Stain - Final Toe - Right Middl e 02/10/20 18:55 Blood Culture - Pr eliminary Blood SPECIMEN COLLEC MADELINE 02/10/20 18:54 Blood Culture - Pr eliminary Blood SPECIMEN COLLE MADELINE A&P Assessment and plan (1) Cellulitis: 39-year-old female status post left BKA with amputation of first and second toe who now presents with swelling of the third toe. Continue IV antibiotics. At this point the 2 x 2 centimeter collection of the metatarsal head did not be drained since her white count is normal and could most likely be a hematoma/seroma Patient might need MRI of the foot rule out osteomyelitis of the right third toe Status: Acute 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 Code Acute Medical Oncology Physician for [facility] Diagnoses Cellulitis L03.90
[2020-02-11] MEDS: gabapentin 300 mg Capsule PO ×2 (16:16→21:03)
[2020-02-11 17:04] LABS: Glucose Point of Care 91 mg/dL (70-110)
[2020-02-11] MEDS: ferrous sulfate EC 325 mg Tablet PO (17:22)
[2020-02-11] MEDS: heparin 5,000 unit/mL INJ 1 mL 5000 UNIT SUBCUT (17:23)
[2020-02-11 20:37] LABS: Glucose Point of Care 179 mg/dL (70-110)
[2020-02-11] MEDS: insulin glargine 100 units/1 mL 5 UNIT SUBCUT (21:33)
[2020-02-12] VITALS (11 sets, daily range): BP systolic 124–177; BP diastolic 68–90; PULSE 66–71; RESP 16–20; TEMP 36.4–37; O2SAT 97–100
[2020-02-12] MEDS: HYDROmorphone 1 mg/mL INJ 1 mL IVP ×2 (01:31→07:46)
[2020-02-12] MEDS: piperacillin-tazobactam 3.375 GM in sodium chloride 0.9% (plus) 50 ML IV (01:32)
[2020-02-12] MEDS: heparin 5,000 unit/mL INJ 1 mL 5000 UNIT SUBCUT ×2 (05:37→17:55)
[2020-02-12 07:00] LABS: Glucose Point of Care 136 mg/dL (70-110)
[2020-02-12] MEDS: sodium chloride 0.9% 1,000 ML 50 ML IV (07:47)
[2020-02-12] MEDS: ferrous sulfate EC 325 mg Tablet PO ×2 (08:26→17:55)
[2020-02-12] MEDS: cyanocobalamin 1,000 mcg Tablet 1000 MCG PO (08:26)
[2020-02-12] MEDS: aspirin 81 mg EC Tablet PO (08:26)
[2020-02-12] MEDS: lisinopril 2.5 mg Tablet PO (08:26)
[2020-02-12] MEDS: folic acid 1 mg Tablet PO (08:26)
[2020-02-12] MEDS: gabapentin 300 mg Capsule PO ×4 (08:26→21:17)
[2020-02-12] MEDS: pantoprazole DR 40 mg Tablet PO ×2 (08:26→17:55)
[2020-02-12 09:44] LABS: Basophils % 0.7 %; Eosinophils # 0.2 10^3/uL (0.0-0.8); Hematocrit 26.4 % (37.0-47.0); Hemoglobin 8.2 g/dL (11.5-15.3); Lymphocytes # 0.8 10^3/uL (0.8-4.8); Lymphocytes % 14.7 %; Mean Corpuscular HGB Conc 31.1 g/dL (30.0-36.0); Mean Corpuscular Hemoglobin 28.7 pg (28.0-34.0); Mean Corpuscular Volume 92.3 fL (81-99); Mean Platelet Volume 8.7 fL (7.4-10.4); Monocytes # 0.4 10^3/uL (0.2-0.9); Monocytes % 7.6 %; Neutrophils # 3.9 10^3/uL (1.8-7.7); Neutrophils % 73.6 %; Nucleated Red Blood Cells % 0 %; Platelet Count 309 10^3/cmm (130-400); Red Blood Count 2.86 10^6/uL (4.1-5.3); Red Cell Distribution Width 13.6 % (12.1-15.1); White Blood Count 5.4 10^3/uL (4.0-10.0)
[2020-02-12 10:41] LABS: Alanine Aminotransferase 27 U/L (0-33); Albumin Level 3.7 g/dL (3.5-5.2); Alkaline Phosphatase 238 IU/L (35-105); Aspartate Amino Transferase 25 U/L (0-32); Blood Urea Nitrogen 14 mg/dL (6-20); Calcium 9.4 mg/dL (8.5-10.5); Carbon Dioxide 23 mmol/L (22-29); Globulin 3.1 g/dL (1.3-4.6); Glucose 195 mg/dL (65-115); Magnesium 1.6 mg/dL (1.7-2.3); Phosphorus 3.3 mg/dL (2.5-4.5); Total Bilirubin 0.2 mg/dL (0.15-1.2); Total Protein 6.8 g/dL (6.6-8.7)
[2020-02-12] MEDS: linezolid premix 600 MG/300 ML PREMIX 300 MG IV ×2 (11:04→21:31)
[2020-02-12 11:05] LABS: Anion Gap 15.9 (5-19); Chloride 98 mmol/L (98-107); Osmolality Calculated 278 mOsm/kg (285-295); Potassium 3.9 mmol/L (3.5-5.1); Sodium 133 mmol/L (136-145)
[2020-02-12 11:12] LABS: Glucose Point of Care 194 mg/dL (70-110)
[2020-02-12] MEDS: metroNIDAZOLE IV 500 MG/100 ML PREMIX 100 MG IV ×2 (11:41→18:09)
[2020-02-12 11:42] LABS: Vancomycin Trough 15.7 ug/mL (10-15)
[2020-02-12] MEDS: carvedilol 3.125 mg Tablet PO ×2 (11:42→22:34)
[2020-02-12] MEDS: cefTRIAXone 1,000 MG in sodium chloride 0.9% (plus) 50 ML 100 MG IV (12:43)
[2020-02-12] MEDS: HYDROmorphone 1 mg/mL INJ 1 mL 0.5 MG IVP ×3 (12:59→22:34)
--- NOTE | 2020-02-12 13:48 | PM.PN ---
Subjective Subjective: Interval history: This morning patient has no significant complaints, states that area of erythema has improved, no fevers, no chills, no nausea, no vomiting I was informed by the lab the patient's vancomycin trough was 38, so I stopped her vancomycin, switch her to Zyvox, took her off Zosyn, and put on Rocephin and Flagyl. Then it was subsequently told that they really ran the vancomycin trough, and it was actually 15.7. So I am not sure if it was an issue with the lab draw or the analyzer. Nonetheless we will continue Zyvox, Rocephin, Flagyl, monitor creatinine, patient was made aware, voiced understanding, all questions answered, has good urine output Vitals/I&O/Wt Last Vital Signs Temp 98.2 F 02/12/20 11:52 Pulse 66 02/12/20 11:52 Resp 17 02/12/20 12:59 BP 140/76 02/12/20 11:52 Pulse Ox 100 02/12/20 11:52 02/11/20 02/12/20 02/12/20 22:59 06:59 14:59 Intake Total 250 / 1850 1250 / 3100 1200 / 1200 Output Total 2100 / 2100 600 / 600 Balance 250 / 1850 -850 / 1000 600 / 600 Weight last 48 hrs Weight 61.235 kg Physical Exam Const: COMMON NORMALS: no acute distress and patient oriented x3 HENMT: COMMON NORMALS: normocephalic HEAD & SCALP: normocephalic Neck/C-Spine: COMMON NORMALS: no JVD Resp: COMMON NORMALS: normal respiratory effort, No retractions, No use of accessory muscles and clear to auscultation bilaterally AUSCULTATION: clear to auscultation bilaterally Cardio: COMMON NORMALS: no JVD, regular rate, regular rhythm, S1 normal heart sound present and S2 normal heart sound present RATE: regular rate RHYTHM: regular rhythm HEART SOUNDS: S1 normal heart sound present and S2 normal heart sound present GI: COMMON NORMALS: Normal to inspection, nondistended, normoactive bowel sounds present, Soft to palpation, non-tender, No hepatosplenomegaly present, no masses and no bruits PALPATION: Yes Soft to palpation and Yes No hepatosplenomegaly present Extremity: NARRATIVE EXTREMITY EXAM: Left BKA site Right lower extremity, third digit, has erythema, swelling, tenderness, has receded, improved Neuro: COMMON NORMALS: patient oriented x3 Psych: COMMON NORMALS: mental status grossly normal Data : 02/12/20 09:37 02/12/20 09:37 Micro: Microbiology 02/10/20 21:35 Gram Stain - Final Toe - Right Middle Wound Culture - Preliminary Staphylococcus aureus Gram Negative Rods 02/10/20 18:55 Blood Culture - Preliminary Blood NEGATIVE TO DATE 02/10/20 18:54 Blood Culture - Preliminary Blood NEGATIVE TO DATE A&P Assessment and plan (1) Foot osteomyelitis, right: Status: Acute (2) Cellulitis: Status: Acute (3) Failure of outpatient treatment: Status: Acute (4) Diabetic infection of right foot: Status: Acute (5) History of amputation of right forefoot: Status: Acute Additional A&P Information Worsening diabetic right-sided foot ulcer with cellulitis and underlying abscess CT scan shows diffuse cellulitis with abscess formation about the hallux metatarsal CRP 32.9, lactic acid 1, ESR 69 Switch to Zyvox, Rocephin, Flagyl although Vanco trough is actually 15.7 not 38, continue IV fluids, monitor urine output, monitor creatinine Previous culture from the OR revealed MRSA, strep saprophyticus and Corynebacterium Patient does not show any signs of sepsis on admission, she has leukocytosis without fever tachycardia, will request lactic acid Dr. Soto has been consulted, plan is to continue IV antibiotics, clinically monitor Acute on chronic anemia, hemoglobin 8.2 multifactorial, has B12 and folate deficiency, evidence of iron deficiency as ferritin is 139 with acute infection, iron levels low at 29 Type 1 diabetes Consistent carb diet, I will keep her on sliding scale Avoid Lantus for now as I am anticipating amputation of her third distal phalanx in the morning Diabetic gastroparesis without active decompensation She is able to tolerate diet Chronic kidney disease stage II No active worsening of her kidney function Below-knee amputation of left extremity No active wound Fall precautions Coronary disease without any active chest pain Hold Plavix and continue aspirin, GI prophylaxis PPI DVT prophylaxis: To be avoided in case she will need surgical intervention in the morning Consistent carb diet, n.p.o. 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
--- NOTE | 2020-02-12 14:13 | MRR_ITS ---
PROCEDURE INFORMATION: Exam: MR Right Lower Extremity Other Than Joint Without Contrast; Foot Exam date and time: 02/12/2020 4:22 PM Age: 39 years old Clinical indication: Condition or disease; Other: Osteomyelitis; Additional info: Osteomyelitis, HX of diabetes, HX of left leg amputation TECHNIQUE: Imaging protocol: MR of the Right lower extremity without contrast. Exam focused on the foot. COMPARISON: MR foot RT wo con* [id number] 01/14/2020 2:40 PM FINDINGS: The examination is somewhat limited due to the lack of intravenous contrast. There is diffuse soft tissue swelling and subcutaneous edema with overlying skin thickening. There are soft tissue ulcerations abutting the 3rd distal phalanx, as well as the hallux metatarsal head. The previously seen collection abutting the hallux metatarsal head is not appreciated on the current study. No convincing organized fluid collection is identified at this time. There is no soft tissue mass. No acute tendon or ligament injury is identified. The patient is status post disarticulation at the level of the hallux metatarsophalangeal joint and 2nd proximal interphalangeal joint. There is prominent bone marrow edema in the 3rd distal phalanx, which is clearly evident on the fluid sensitive and T1 weighted sequences. There are associated erosive/destructive changes. There is subtle, patchy bone marrow edema in the hallux metatarsal head, which is likely reactive in nature. No lytic or blastic lesion is seen. There is no significant effusion. MR/MR foot RT wo con* [id number] IMPRESSION: 1. Limited noncontrast examination. 2. Acute osteomyelitis of the 3rd distal phalanx, as described above. 3. Additional findings, as above.
[2020-02-12] MEDS: lidocaine 1% INJ 20 mL SUBCUT (14:22)
--- NOTE | 2020-02-12 15:18 | P.PN_ITS ---
Subjective Subjective: Interval history: Patient feeling better, swelling is decreased, redness is improved though her right third toe still swollen Vitals/I&O/Wt Last Vital Signs Temp 98.2 F 02/12/20 11:52 Pulse 66 02/12/20 11:52 Resp 17 02/12/20 12:59 BP 140/76 02/12/20 11:52 Pulse Ox 100 02/12/20 11:52 02/12/20 02/12/20 02/12/20 06:59 14:59 22:59 Intake Total 1250 / 3100 1200 / 1200 Output Total 2100 / 2100 1500 / 1500 Balance -850 / 1000 -300 / -300 Weight last 48 hrs Weight 135 lb Physical Exam Narrative: EXAM NARRATIVE: Right foot: Erythema improved on the medial aspect lower leg though the right toe is still swollen and appears to have some fluctuance. Data : 02/12/20 09:37 02/12/20 09:37 Micro: Microbiology 02/10/20 21:35 Gram Stain - Final Toe - Right Middle Wound Culture - Preliminary Staphylococcus aureus Gram Negative Rods 02/10/20 18:55 Blood Culture - Preliminary Blood NEGATIVE TO DATE 02/10/20 18:54 Blood Culture - Preliminary Blood NEGATIVE TO DATE A&P Assessment and plan (1) Cellulitis: 39-year-old female with left BKA and amputation of right first and second toe who now presents with cellulitis 3 weeks postop. Patient has developed some fluctuance on the right third toe. 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
--- NOTE | 2020-02-12 15:19 | P.PCN_ITS ---
Procedure/Consent Time out: Time Out Performed: Yes Consent: Consent for Procedure: Consent obtained from patient Procedure Narrative: The patient's right foot was prepped and draped in a sterile manner after consent was obtained. 10 cc of 1% lidocaine was infiltrated at the base of the right third toe for a digital block. Using scissors and opening was made over the area of fluctuance at the tip of the righ t third toe with drainage of small amount of pus. Necrotic skin tissue was excised and tunneling extended on the plantar surface to another opening near the proximal phalanx. Wound was irrigated saline and packed with quarter inch ribbon gauze and covered with sterile dressings. Patient tolerated procedure well. Acute Procedures Epistaxis Control: Time out performed: Yes
[2020-02-12 17:30] LABS: Glucose Point of Care 157 mg/dL (70-110)
[2020-02-12] MEDS: insulin glargine 100 units/1 mL 5 UNIT SUBCUT (21:17)
[2020-02-12 21:24] LABS: Glucose Point of Care 145 mg/dL (70-110)
[2020-02-12] MEDS: metoclopramide 5 mg/mL SDV 2 mL IVP (22:35)
[2020-02-13] VITALS (9 sets, daily range): BP systolic 134–158; BP diastolic 72–85; PULSE 68–74; RESP 18–20; TEMP 36.4–36.9; O2SAT 96–100
[2020-02-13 03:37] LABS: Basophils % 0.6 %; Eosinophils # 0.2 10^3/uL (0.0-0.8); Eosinophils % 3.1 %; Hemoglobin 8.5 g/dL (11.5-15.3); Lymphocytes # 1.3 10^3/uL (0.8-4.8); Lymphocytes % 27.6 %; Mean Corpuscular HGB Conc 30.4 g/dL (30.0-36.0); Mean Corpuscular Hemoglobin 29.1 pg (28.0-34.0); Mean Corpuscular Volume 95.9 fL (81-99); Mean Platelet Volume 8.8 fL (7.4-10.4); Monocytes # 0.5 10^3/uL (0.2-0.9); Monocytes % 10.1 %; Neutrophils # 2.8 10^3/uL (1.8-7.7); Neutrophils % 58.2 %; Nucleated Red Blood Cells % 0 %; Platelet Count 302 10^3/cmm (130-400); Red Blood Count 2.92 10^6/uL (4.1-5.3); Red Cell Distribution Width 13.4 % (12.1-15.1); White Blood Count 4.9 10^3/uL (4.0-10.0)
[2020-02-13] MEDS: sodium chloride 0.9% 1,000 ML 100 ML IV ×2 (03:53→16:08)
[2020-02-13] MEDS: metroNIDAZOLE IV 500 MG/100 ML PREMIX 100 MG IV ×3 (03:53→18:09)
[2020-02-13 04:04] LABS: Alanine Aminotransferase 21 U/L (0-33); Alkaline Phosphatase 222 IU/L (35-105); Anion Gap 17.2 (5-19); Blood Urea Nitrogen 15 mg/dL (6-20); Calcium 9.1 mg/dL (8.5-10.5); Carbon Dioxide 23 mmol/L (22-29); Chloride 102 mmol/L (98-107); Globulin 3.8 g/dL (1.3-4.6); Glomerular Filtration Rate 61.1 mL/min (90-130); Glucose 129 mg/dL (65-115); Magnesium 1.8 mg/dL (1.7-2.3); Osmolality Calculated 284 mOsm/kg (285-295); Phosphorus 3.7 mg/dL (2.5-4.5); Potassium 4.2 mmol/L (3.5-5.1); Sodium 138 mmol/L (136-145); Total Bilirubin 0.2 mg/dL (0.15-1.2); Total Protein 6.8 g/dL (6.6-8.7)
[2020-02-13] MEDS: HYDROmorphone 1 mg/mL INJ 1 mL 0.5 MG IVP ×3 (04:07→12:41)
[2020-02-13 04:15] LABS: Aspartate Amino Transferase 20 U/L (0-32)
[2020-02-13] MEDS: heparin 5,000 unit/mL INJ 1 mL 5000 UNIT SUBCUT ×2 (05:13→18:10)
[2020-02-13 07:15] LABS: Glucose Point of Care 138 mg/dL (70-110)
[2020-02-13] MEDS: ferrous sulfate EC 325 mg Tablet PO ×2 (08:48→18:11)
[2020-02-13] MEDS: aspirin 81 mg EC Tablet PO (08:48)
[2020-02-13] MEDS: folic acid 1 mg Tablet PO (08:48)
[2020-02-13] MEDS: pantoprazole DR 40 mg Tablet PO ×2 (08:48→18:10)
[2020-02-13] MEDS: cyanocobalamin 1,000 mcg Tablet 1000 MCG PO (08:49)
[2020-02-13] MEDS: gabapentin 300 mg Capsule PO ×4 (08:49→21:54)
[2020-02-13] MEDS: linezolid premix 600 MG/300 ML PREMIX 300 MG IV ×2 (09:41→22:32)
--- NOTE | 2020-02-13 10:37 | PM.PN ---
Subjective Subjective: Interval history: Patient states her leg feels better, MRI yesterday showed osteomyelitis of the right third distal phalanx Vitals/I&O/Wt Last Vital Signs Temp 98.1 F 02/13/20 07:49 Pulse 73 02/13/20 07:49 Resp 18 02/13/20 08:23 BP 158/83 02/13/20 07:49 Pulse Ox 96 02/13/20 08:23 02/12/20 02/13/20 02/13/20 22:59 06:59 14:59 Intake Total 1120 / 3160 780 / 3160 360 / 360 Output Total 3000 / 4500 Balance 1120 / -1340 -2220 / -1340 360 / 360 Physical Exam Narrative: EXAM NARRATIVE: Right foot: Erythema significantly improved, nontender, wound has been packed Data : 02/13/20 02:56 02/13/20 02:56 Micro: Microbiology 02/10/20 21:35 Gram Stain - Final Toe - Right Middle Wound Culture - Preliminary Staphylococcus aureus Gram Negative Rods A&P Assessment and plan (1) Cellulitis: 39-year-old female with left BKA and amputation of right first and second toe who now presents with cellulitis 3 weeks postop.\ Status post incision and drainage of right third toe MRI shows osteomyelitis of distal phalanx right third toe Discussed options with the patient, she will need PICC line with long-term IV antibiotics. Continue Deysi over the plantar wound and pack right third toe wound with quarter inch ribbon gauze daily Status: Acute Attestations Medical Necessity Statement*: Right third toe osteomyelitis 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 Code Acute Dermatopathologist for [facility] Diagnoses Cellulitis L03.90
[2020-02-13 10:41] LABS: Glucose Point of Care 237 mg/dL (70-110)
[2020-02-13] MEDS: cefTRIAXone 1,000 MG in sodium chloride 0.9% (plus) 50 ML 100 MG IV (11:49)
--- NOTE | 2020-02-13 12:10 | PM.PN ---
Subjective Subjective: Interval history: Patient has no complaints this morning, no fevers, chills, nausea, no vomiting, urinating appropriately Vitals/I&O/Wt Last Vital Signs Temp 97.6 F 02/13/20 11:24 Pulse 73 02/13/20 11:24 Resp 18 02/13/20 11:24 BP 134/77 02/13/20 11:24 Pulse Ox 99 02/13/20 11:24 02/12/20 02/13/20 02/13/20 22:59 06:59 14:59 Intake Total 1120 / 2430 780 / 3210 360 / 360 Output Total 3000 / 4500 Balance 1120 / 930 -2220 / -1290 360 / 360 Physical Exam Const: COMMON NORMALS: no acute distress and patient oriented x3 HENMT: COMMON NORMALS: normocephalic HEAD & SCALP: normocephalic Neck/C-Spine: COMMON NORMALS: no JVD Resp: COMMON NORMALS: normal respiratory effort, No retractions, No use of accessory muscles and clear to auscultation bilaterally AUSCULTATION: clear to auscultation bilaterally Cardio: COMMON NORMALS: no JVD, regular rate, regular rhythm, S1 normal heart sound present and S2 normal heart sound present RATE: regular rate RHYTHM: regular rhythm HEART SOUNDS: S1 normal heart sound present and S2 normal heart sound present GI: COMMON NORMALS: Normal to inspection, nondistended, normoactive bowel sounds present, Soft to palpation, non-tender, No hepatosplenomegaly present, no masses and no bruits PALPATION: Yes Soft to palpation and Yes No hepatosplenomegaly present Extremity: NARRATIVE EXTREMITY EXAM: Left BKA site Right lower extremity, third digit, has erythema, swelling, tenderness, has receded, improved Neuro: COMMON NORMALS: patient oriented x3 Psych: COMMON NORMALS: mental status grossly normal Data : 02/13/20 02:56 02/13/20 02:56 Micro: Microbiology 02/10/20 21:35 Gram Stain - Final Toe - Right Middle Wound Culture - Preliminary Staphylococcus aureus Pseudomonas aeruginosa Strep agalactiae - (group b) A&P Assessment and plan (1) Foot osteomyelitis, right: Status: Acute (2) Cellulitis: Status: Acute (3) Failure of outpatient treatment: Status: Acute (4) Diabetic infection of right foot: Status: Acute (5) History of amputation of right forefoot: Status: Acute (6) Osteomyelitis of foot, right, acute: Status: Acute Additional A&P Information Worsening diabetic right-sided foot ulcer with cellulitis and underlying abscess, with evidence of osteomyelitis MRI shows acute osteomyelitis of the third distal phalanx CT scan shows diffuse cellulitis with abscess formation about the hallux metatarsal CRP 32.9, lactic acid 1, ESR 69 Culture so far shows staph aureus, Pseudomonas, group B strep, has a history of MRSA Yesterday there was concern for high Vanco trough and nephrotoxicity so vancomycin and Zosyn were stopped although, but this proved to be incorrect as his Vanco trough was only 15.7, creatinine has been stable at 1 That she was switched to switch to Zyvox, Rocephin, Flagyl, I have added oral Levaquin for Pseudomonas Previous culture from the OR revealed MRSA, strep saprophyticus and Corynebacterium Patient does not show any signs of sepsis on admission, she has leukocytosis without fever tachycardia, will request lactic acid Dr. Soto has been consulted, plan is to continue IV antibiotics, likely PICC line placement Saturday, with IV antibiotics once cultures come back. Likely vancomycin with oral Levaquin for 6 weeks Acute on chronic anemia, hemoglobin 8.2 multifactorial, has B12 and folate deficiency, evidence of iron deficiency as ferritin is 139 with acute infection, iron levels low at 29 Type 1 diabetes Consistent carb diet, I will keep her on sliding scale Avoid Lantus for now as I am anticipating amputation of her third distal phalanx in the morning Diabetic gastroparesis without active decompensation She is able to tolerate diet Chronic kidney disease stage II No active worsening of her kidney function Below-knee amputation of left extremity No active wound Fall precautions Coronary disease without any active chest pain Hold Plavix just in case any surgical intervention and continue aspirin, GI prophylaxis PPI DVT prophylaxis: Heparin Consistent carb diet, Full code Attestations Medical Necessity Statement*: Patient requires continued hospitalization for third digit cellulitis, osteomyelitis 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 Code Acute Cyber Intelligence Analyst for [facility] Diagnoses Foot osteomyelitis, right M86.9 Cellulitis L03.90 Failure of outpatient treatment Z78.9 Diabetic infection of right foot E11.628; L08.9 History of amputation of right forefoot Z89.431 Osteomyelitis of foot, right, acute M86.171
[2020-02-13] MEDS: levoFLOXacin 750 mg Tablet PO (12:47)
[2020-02-13] MEDS: carvedilol 3.125 mg Tablet PO ×2 (12:47→22:35)
[2020-02-13] MEDS: metoclopramide 5 mg/mL SDV 2 mL IVP (14:23)
[2020-02-13 16:46] LABS: Glucose Point of Care 110 mg/dL (70-110)
[2020-02-13] MEDS: HYDROcodone-acetaminophen 5-325 mg Tablet 1 TAB PO (18:10)
[2020-02-13 21:02] LABS: Glucose Point of Care 168 mg/dL (70-110)
[2020-02-13] MEDS: insulin glargine 100 units/1 mL 5 UNIT SUBCUT (21:55)
[2020-02-14] VITALS: BP 147/83; PULSE 68; RESP 18; TEMP 36.9; O2SAT 97
[2020-02-14] MEDS: HYDROcodone-acetaminophen 5-325 mg Tablet 1 TAB PO ×4 (00:21→21:01)
[2020-02-14] MEDS: metroNIDAZOLE IV 500 MG/100 ML PREMIX 100 MG IV (02:45)
[2020-02-14] MEDS: LORazepam 0.5 mg Tablet PO (02:45)
[2020-02-14 04:00] VITALS: BP 156/86; PULSE 64; RESP 16; TEMP 36.7; O2SAT 97
[2020-02-14] MEDS: sodium chloride 0.9% 1,000 ML 100 ML IV ×2 (04:35→08:43)
[2020-02-14] MEDS: heparin 5,000 unit/mL INJ 1 mL 5000 UNIT SUBCUT ×2 (05:17→17:24)
[2020-02-14 05:40] LABS: Basophils % 0.6 %; Eosinophils # 0.2 10^3/uL (0.0-0.8); Eosinophils % 3.7 %; Hematocrit 26.8 % (37.0-47.0); Hemoglobin 8.4 g/dL (11.5-15.3); Lymphocytes # 1.4 10^3/uL (0.8-4.8); Mean Corpuscular HGB Conc 31.3 g/dL (30.0-36.0); Mean Corpuscular Volume 92.4 fL (81-99); Mean Platelet Volume 9.1 fL (7.4-10.4); Monocytes # 0.4 10^3/uL (0.2-0.9); Monocytes % 8.6 %; Neutrophils # 2.7 10^3/uL (1.8-7.7); Neutrophils % 57.7 %; Nucleated Red Blood Cells % 0 %; Platelet Count 339 10^3/cmm (130-400); Red Cell Distribution Width 13.6 % (12.1-15.1); White Blood Count 4.7 10^3/uL (4.0-10.0)
[2020-02-14 06:18] LABS: Alanine Aminotransferase 17 U/L (0-33); Albumin Level 3.3 g/dL (3.5-5.2); Alkaline Phosphatase 210 IU/L (35-105); Anion Gap 15.2 (5-19); Blood Urea Nitrogen 22 mg/dL (6-20); Calcium 9.4 mg/dL (8.5-10.5); Carbon Dioxide 24 mmol/L (22-29); Chloride 101 mmol/L (98-107); Globulin 3.4 g/dL (1.3-4.6); Glucose 90 mg/dL (65-115); Magnesium 1.8 mg/dL (1.7-2.3); Osmolality Calculated 278 mOsm/kg (285-295); Phosphorus 3.5 mg/dL (2.5-4.5); Potassium 4.2 mmol/L (3.5-5.1); Sodium 136 mmol/L (136-145); Total Bilirubin 0.2 mg/dL (0.15-1.2); Total Protein 6.7 g/dL (6.6-8.7)
[2020-02-14 06:19] LABS: Aspartate Amino Transferase 18 U/L (0-32)
[2020-02-14 06:57] LABS: Glucose Point of Care 96 mg/dL (70-110)
[2020-02-14 07:15] VITALS: BP 127/76; PULSE 73; RESP 20; TEMP 37.2; O2SAT 95
--- NOTE | 2020-02-14 07:51 | PM.PN ---
Subjective Subjective: Interval history: Patient mainly complaining of pain, not happy about her pain meds being taken away. Vitals/I&O/Wt Last Vital Signs Temp 98.9 F 02/14/20 07:15 Pulse 73 02/14/20 07:15 Resp 20 H 02/14/20 07:15 BP 127/76 02/14/20 07:15 Pulse Ox 95 02/14/20 07:15 02/13/20 02/14/20 02/14/20 22:59 06:59 14:59 Intake Total 700 / 4060 1360 / 4060 Output Total 1999 Balance 700 / 0 -640 / 0 Physical Exam Narrative: EXAM NARRATIVE: Right foot: Erythema is improved, minimally tender, and toe still swollen and wound is being packed, no significant drainage but still has some necrotic tissue Data : 02/14/20 03:30 02/14/20 03:30 Micro: Microbiology 02/10/20 21:35 Gram Stain - Final Toe - Right Middle Wound Culture - Preliminary Staphylococcus aureus Pseudomonas aeruginosa Strep agalactiae - (group b) A&P Assessment and plan (1) Osteomyelitis of foot, right, acute: 39-year-old female status post left BKA with osteomyelitis of right third toe distal phalanx requiring IV antibiotics. Continue IV antibiotics Plan for PICC line tomorrow With wet-to-dry with quarter inch ribbon gauze once daily Follow-up in wound care Status: Acute Attestations Medical Necessity Statement*: Osteomyelitis right third toe 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 Code Acute Strategic Planner for [facility] Diagnoses Osteomyelitis of foot, right, acute M86.171
[2020-02-14] MEDS: pantoprazole DR 40 mg Tablet PO ×2 (08:40→17:24)
[2020-02-14] MEDS: cyanocobalamin 1,000 mcg Tablet 1000 MCG PO (08:40)
[2020-02-14] MEDS: levoFLOXacin 750 mg Tablet PO (08:40)
[2020-02-14] MEDS: ferrous sulfate EC 325 mg Tablet PO ×2 (08:40→17:24)
[2020-02-14] MEDS: aspirin 81 mg EC Tablet PO (08:41)
[2020-02-14] MEDS: folic acid 1 mg Tablet PO (08:41)
[2020-02-14] MEDS: gabapentin 300 mg Capsule PO ×4 (08:41→21:01)
[2020-02-14] MEDS: linezolid premix 600 MG/300 ML PREMIX 300 MG IV ×2 (09:47→22:19)
[2020-02-14 10:58] LABS: Glucose Point of Care 172 mg/dL (70-110)
[2020-02-14] MEDS: carvedilol 3.125 mg Tablet PO ×2 (11:35→23:42)
[2020-02-14] MEDS: cefTRIAXone 1,000 MG in sodium chloride 0.9% (plus) 50 ML 100 MG IV (11:36)
[2020-02-14 11:46] VITALS: BP 152/89; PULSE 69; RESP 20; TEMP 36.6; O2SAT 100
[2020-02-14 12:08] LABS: Erythrocyte Sedimentation Rate 57 mm/hr (0-15)
--- NOTE | 2020-02-14 12:41 | P.PN_ITS ---
Subjective Subjective: Interval history: Afebrile overnight, no nausea, no vomiting, patient states that she continues to have episodes of pain despite [place] 5 every 6 hours, patient states that she does not have insurance, cannot really afford IV antibiotics, she does not have any rides to outpatient clinic for antibiotic infusions, she will likely have to drive, she really wants to have surgical intervention for her foot. Patient was supposed to follow-up after her last admission, but a lot of her follow-ups were missed appointments, and I am concerned that she will not follow-up with her IV antibiotic treatments, repeat blood draws, repeat appointments, were concerned for worsening infection as outpatient, and failure of antibiotic therapy. Ultimately the preference would be to save third digit, give antibiotics 6 weeks to clear the infection, and see how she progresses clinically I have reiterated this patient multiple times, however she says that she wants to have surgical intervention, she is having a lot of difficulties with figuring out the medical intervention option for her osteomyelitis. given patient's unique situation of noncompliance, no insurance, affordability of IV medications, no help at home, distance from infusion facility, IV antibiotics for 6 weeks would would not be a realistic option in her unique situation. After discussion risk and benefits of surgical intervention, voiced understanding, all questions answered, agreed to proceed with surgical intervention with plans on likely losing the third digit. Vitals/I&O/Wt Last Vital Signs Temp 97.9 F 02/14/20 11:46 Pulse 69 02/14/20 11:46 Resp 20 H 02/14/20 11:46 BP 152/89 02/14/20 11:46 Pulse Ox 100 02/14/20 11:46 02/13/20 02/14/20 02/14/20 22:59 06:59 14:59 Intake Total 700 / 2750 1660 / 4410 1613.333 / 1613.333 Output Total 1999 Balance 700 / 2750 -340 / 2410 1613.333 / 1613.333 Physical Exam Const: COMMON NORMALS: no acute distress and patient oriented x3 HENMT: COMMON NORMALS: normocephalic HEAD & SCALP: normocephalic Neck/C-Spine: COMMON NORMALS: no JVD Resp: COMMON NORMALS: normal respiratory effort, No retractions, No use of accessory muscles and clear to auscultation bilaterally AUSCULTATION: clear to auscultation bilaterally Cardio: COMMON NORMALS: no JVD, regular rate, regular rhythm, S1 normal heart sound present and S2 normal heart sound present RATE: regular rate RHYTHM: regular rhythm HEART SOUNDS: S1 normal heart sound present and S2 normal heart sound present GI: COMMON NORMALS: Normal to inspection, nondistended, normoactive bowel sounds present, Soft to palpation, non-tender, No hepatosplenomegaly present, no masses and no bruits PALPATION: Yes Soft to palpation and Yes No hepatosplenomegaly present Extremity: NARRATIVE EXTREMITY EXAM: Left BKA site Right lower extremity, third digit, has erythema, swelling, tenderness, has receded, improved Neuro: COMMON NORMALS: patient oriented x3 Psych: COMMON NORMALS: mental status grossly normal Data : 02/14/20 03:30 02/14/20 03:30 Micro: Microbiology 02/10/20 21:35 Gram Stain - Final Toe - Right Middle Wound Culture - Preliminary Staphylococcus aureus Pseudomonas aeruginosa Strep agalactiae - (group b) A&P Assessment and plan (1) Foot osteomyelitis, right: Status: Acute (2) Cellulitis: Status: Acute (3) Failure of outpatient treatment: Status: Acute (4) Diabetic infection of right foot: Status: Acute (5) History of amputation of right forefoot: Status: Acute (6) Osteomyelitis of foot, right, acute: Status: Acute Additional A&P Information Worsening diabetic right-sided foot ulcer with cellulitis and underlying abscess, with evidence of osteomyelitis MRI shows acute osteomyelitis of the third distal phalanx CT scan shows diffuse cellulitis with abscess formation about the hallux metatarsal CRP 32.9, lactic acid 1, ESR 69 Culture so far shows staph aureus, Pseudomonas, group B strep, has a history of MRSA Yesterday there was concern for high Vanco trough and nephrotoxicity so vancomycin and Zosyn were stopped although, but this proved to be incorrect as his Vanco trough was only 15.7, creatinine has been stable at 1 That she was switched to switch to Zyvox, Rocephin, Flagyl, I have added oral Levaquin for Pseudomonas Previous culture from the OR revealed MRSA, strep saprophyticus and Corynebacterium Patient does not show any signs of sepsis on admission, she has leukocytosis without fever tachycardia, will request lactic acid Patient wants surgical intervention over prolonged medical therapy given concerns for antibiotic failure, affordability, no help, noncompliance Dr. Soto has been consulted, n.p.o. midnight, plan for surgical debridement tomorrow, plan is to continue IV antibiotics for now. Likely discharge on oral antibiotics, based on cultures.. Acute on chronic anemia, hemoglobin 8.2 multifactorial, has B12 and folate deficiency, evidence of iron deficiency as ferritin is 139 with acute infection, iron levels low at 29 Type 1 diabetes Consistent carb diet, I will keep her on sliding scale Avoid Lantus for now as I am anticipating amputation of her third distal phalanx in the morning Diabetic gastroparesis without active decompensation She is able to tolerate diet Chronic kidney disease stage II No active worsening of her kidney function Below-knee amputation of left extremity No active wound Fall precautions Coronary disease without any active chest pain Hold Plavix just in case any surgical intervention and continue aspirin, GI prophylaxis PPI DVT prophylaxis: Heparin Consistent carb diet, Full code Attestations Medical Necessity Statement*: Patient requires continued hospitalization for third digit osteomyelitis 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 Code Acute Hvac Operations Technician for [facility] Diagnoses Foot osteomyelitis, right M86.9 Cellulitis L03.90 Failure of outpatient treatment Z78.9 Diabetic infection of right foot E11.628; L08.9 History of amputation of right forefoot Z89.431 Osteomyelitis of foot, right, acute M86.171
[2020-02-14 15:18] VITALS: BP 158/80; PULSE 70; RESP 22; TEMP 36.7; O2SAT 97
[2020-02-14 16:21] LABS: Glucose Point of Care 104 mg/dL (70-110)
[2020-02-14 20:00] VITALS: BP 146/78; PULSE 72; RESP 20; TEMP 36.8; O2SAT 100
[2020-02-14 21:38] LABS: Glucose Point of Care 185 mg/dL (70-110)
[2020-02-14] MEDS: insulin glargine 100 units/1 mL 5 UNIT SUBCUT (22:19)
[2020-02-15] VITALS (8 sets, daily range): BP systolic 140–158; BP diastolic 76–88; PULSE 60–82; RESP 16–20; TEMP 36.5–36.9; O2SAT 98–100
[2020-02-15 03:37] LABS: Basophils % 0.4 %; Eosinophils # 0.2 10^3/uL (0.0-0.8); Eosinophils % 3.9 %; Hematocrit 29.6 % (37.0-47.0); Hemoglobin 9.3 g/dL (11.5-15.3); Lymphocytes # 1.7 10^3/uL (0.8-4.8); Lymphocytes % 31.6 %; Mean Corpuscular HGB Conc 31.4 g/dL (30.0-36.0); Mean Corpuscular Hemoglobin 29.2 pg (28.0-34.0); Mean Corpuscular Volume 92.8 fL (81-99); Mean Platelet Volume 8.5 fL (7.4-10.4); Monocytes # 0.4 10^3/uL (0.2-0.9); Monocytes % 7.7 %; Neutrophils % 55.5 %; Nucleated Red Blood Cells % 0 %; Platelet Count 384 10^3/cmm (130-400); Red Blood Count 3.19 10^6/uL (4.1-5.3); Red Cell Distribution Width 13.6 % (12.1-15.1); White Blood Count 5.3 10^3/uL (4.0-10.0)
[2020-02-15 03:52] LABS: INR 0.93 (0.8-1.2)
[2020-02-15 04:02] LABS: Alanine Aminotransferase 16 U/L (0-33); Albumin Level 3.6 g/dL (3.5-5.2); Alkaline Phosphatase 205 IU/L (35-105); Anion Gap 15.1 (5-19); Aspartate Amino Transferase 18 U/L (0-32); Blood Urea Nitrogen 24 mg/dL (6-20); Carbon Dioxide 25 mmol/L (22-29); Chloride 102 mmol/L (98-107); Globulin 3.4 g/dL (1.3-4.6); Glucose 92 mg/dL (65-115); Magnesium 1.8 mg/dL (1.7-2.3); Osmolality Calculated 282 mOsm/kg (285-295); Phosphorus 4.7 mg/dL (2.5-4.5); Potassium 4.1 mmol/L (3.5-5.1); Sodium 138 mmol/L (136-145); Total Bilirubin 0.2 mg/dL (0.15-1.2)
[2020-02-15] MEDS: HYDROcodone-acetaminophen 5-325 mg Tablet 1 TAB PO ×3 (05:50→21:56)
[2020-02-15] MEDS: heparin 5,000 unit/mL INJ 1 mL 5000 UNIT SUBCUT ×2 (06:34→17:08)
[2020-02-15 06:38] LABS: Glucose Point of Care 98 mg/dL (70-110)
--- NOTE | 2020-02-15 08:22 | P.PN_ITS ---
Subjective Subjective: Interval history: Patient has been on IV antibiotics on and off throughout the year and now she is developed osteomyelitis in the right third toe. Vitals/I&O/Wt Last Vital Signs Temp 98.2 F 02/15/20 07:59 Pulse 63 02/15/20 07:59 Resp 18 02/15/20 07:59 BP 143/76 02/15/20 07:59 Pulse Ox 98 02/15/20 07:59 02/14/20 02/15/20 02/15/20 22:59 06:59 14:59 Intake Total 360 / 2273.333 Output Total 1300 / 3200 1900 / 3200 Balance -940 / -926.667 -1900 / -926.667 Physical Exam 2 Narrative: EXAM NARRATIVE: Right foot: Erythema is better Data : 02/15/20 03:25 02/15/20 03:25 Micro: Microbiology 02/10/20 21:35 Gram Stain - Final Toe - Right Middle Wound Culture - Final Methicillin Resis Staph Aureus Pseudomonas aeruginosa Strep agalactiae - (group b) A&P Assessment and plan (1) Osteomyelitis of foot, right, acute: 39-year-old female with osteomyelitis of right third toe distal phalanx. Discussed options with the patient, considering her social situation where she does not have easy access to transport to the hospital and the fact that she does not have insurance she will not be able to get new home health for IV antibiotics she would rather go ahead with amputation of the right third toe Plan for amputation of right third toe under MAC today Procedure, risks, benefits and alternatives have been discussed with the patient who wishes to proceed with surgery. Status: Acute Attestations Medical Necessity Statement*: Osteomyelitis right third toe 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 Code Acute Windows Systems Administrator for [facility] Diagnoses Osteomyelitis of foot, right, acute M86.171
[2020-02-15] MEDS: ferrous sulfate EC 325 mg Tablet PO ×2 (09:25→17:07)
[2020-02-15] MEDS: folic acid 1 mg Tablet PO (09:25)
[2020-02-15] MEDS: aspirin 81 mg EC Tablet PO (09:26)
[2020-02-15] MEDS: gabapentin 300 mg Capsule PO ×3 (09:26→21:55)
[2020-02-15] MEDS: pantoprazole DR 40 mg Tablet PO ×2 (09:26→17:07)
[2020-02-15] MEDS: cyanocobalamin 1,000 mcg Tablet 1000 MCG PO (09:26)
[2020-02-15] MEDS: linezolid premix 600 MG/300 ML PREMIX 300 MG IV (09:27)
[2020-02-15] MEDS: levoFLOXacin 750 mg Tablet PO (09:27)
[2020-02-15] MEDS: metoclopramide 5 mg/mL SDV 2 mL IVP (09:38)
[2020-02-15 11:49] LABS: Glucose Point of Care 123 mg/dL (70-110)
--- NOTE | 2020-02-15 12:30 | P.ANESASSM_ITS ---
Pre-Anesthetic Assessment Pre-Anesthetic Assessment: Height/Weight: Height 1.75 m Weight 61.235 kg Temp Pulse Resp BP Pulse Ox 98.4 F 64 18 158/87 100 02/15/20 11:38 02/15/20 11:38 02/15/20 11:38 02/15/20 11:38 02/15/20 11:38 Preop Diagnosis: Osteomyelitis right third toe Proposed Procedure: Operation Date: 02/15/20 12:00 Proposed Procedures p amputation right third toe(Right) - Onesimo Soto MD Familial anesthetic complications: None Was Beta Rozina taken within 24 hours: Yes (will give carvedilol) Last intake: Intake Last Liquid Date 02/14/20 Last Liquid Time 23:30 Last Solid Date 02/14/20 Last Solid Time 23:30 Social: Social History: No alcohol and No tobacco Exam: Pre-Anes Outpt Exam: alert, oriented x 3, clear to auscultation bilaterally and regular rate & rhythm Airway: Cervical ROM: WNL MP: 1 Additional comments: extremely poor dentition Pulmonary: Pulmonary: None reported CV/HEM: CV/HEM: CAD (stent 1 year ago on plavix - holding), HTN and GA : : None reported Hepatic: Hepatic: None reported Metabolic: Metabolic: DM (Type I) Musc/skel: Musc/skel: None reported Neuropsych: Neuropsych: Neuropathy Anesthetic Plan: ASA status: 3 Anesthesia: MAC Risk of > 500 ml blood loss (7ml/kg in children): No Meds/Allergies Current Medications: Current Medications Generic Name Dose Route Start Last Admin Trade Name Freq PRN Reason Stop Dose Admin Hydrocodone Bitart /Acetaminophen 1 tab 02/14/20 10:04 02/15/20 05:50 [place] 5-325 Mg PO 1 tab Q4H PRN Administration PAIN Aspirin 81 mg 02/11/20 09:00 02/15/20 09:26 Aspirin Ec PO 81 mg DAILY DAWSON Administration Carvedilol 3.125 mg 02/10/20 23:34 02/14/20 23:42 Coreg PO 3.125 mg Q12H DAWSON Administration Cyanocobalamin 1,000 mcg 02/12/20 09:00 02/15/20 09:26 Vitamin B-12 PO 1,000 mcg DAILY DAWSON Administration Ferrous Sulfate 325 mg 02/11/20 18:00 02/15/20 09:25 Ferrous Sulfate PO 325 mg BIDWM DAWSON Administration Folic Acid 1 mg 02/12/20 09:00 02/15/20 09:25 Folic Acid PO 1 mg DAILY DAWSON Administration Gabapentin 300 mg 02/11/20 17:00 02/15/20 09:26 Neurontin PO 300 mg QID DAWSON Administration Heparin Sodium (Be ef Lung) 5,000 unit 02/11/20 18:00 02/15/20 06:34 Heparin SUBCUT 02/16/20 17:59 5,000 unit Q12H DAWSON Administration Linezolid 600 mg in 300 mls @ 300 mls/hr 02/12/20 10:30 02/15/20 09:27 Zyvox Premix IV 300 mls/hr Q12H DAWSON Administration Protocol Ceftriaxone Sodium 1,000 mg/ 50 mls @ 100 mls/ hr 02/12/20 11:00 02/14/20 11:36 Sodium Chloride IV 100 mls/hr Q24H DAWSON Administration Protocol Insulin Aspart 0 unit 02/11/20 08:00 02/15/20 11:21 Novolog SUBCUT Not Given WM&BEDTIME DAWSON Protocol Insulin Glargine 5 unit 02/11/20 21:00 02/14/20 22:19 Lantus SUBCUT 5 unit BEDTIME DAWSON Administration Levofloxacin 750 mg 02/13/20 12:30 02/15/20 09:27 Levaquin PO 750 mg DAILY DAWSON Administration Protocol Lisinopril 2.5 mg 02/12/20 09:00 02/12/20 08:26 Prinivil PO 2.5 mg DAILY DAWSON Administration Metoclopramide HCl 5 mg 02/10/20 23:34 02/15/20 09:38 Reglan IVP 5 mg Q6H PRN Administration vomiting Pantoprazole Sodiu m 40 mg 02/11/20 09:00 02/15/20 09:26 Protonix PO 40 mg BID DAWSON Administration PFSH Anesthesia PFSH: Medical History CKD (chronic kidney disease) stage 2, GFR 60-89 ml/min -secondary to diabetic nephropathy -baseline Cr is around 1.0 -has FIONA superimposed on CKD likely due to dehydration; FIONA improving -continue to monitor renal function, avoid nephrotoxins, renally dose meds -off IVF hydration Coronary artery disease -hx of CAD s/p stenting -on ASA, Plavix; hold in case of surgery -not on statin Diabetes mellitus type 1 -noted hx of DM type I complicated by nephropathy and neuropathy -A1c-7.5 -Accuchecks, ISS, hypoglycemia precautions -hyperglycemia without DKA Diabetic gastroparesis -secondary to DM type I Hyperlipidemia Surgical History Below-knee amputation of left lower extremity H/O exploratory laparotomy x 3 Previous section x 3 S/P coronary artery stent placement x 1 S/P percutaneous endoscopic gastrostomy (PEG) tube placement Family History Unknown Diabetes extensive, type II Other CHF (congestive heart failure) Social History Smoking and tobacco status: former smoker Quit status (tobacco): has quit using tobacco Former quit date comment: 15 yrs ago Alcohol intake: former Former alcohol use details: 15 yrs ago Household members: spouse Marital status: Sexually active: Yes (1, ) Data Anesthesia CBC & Chem 7: 02/15/20 03:25 02/15/20 03:25 Other Labs: Laboratory Results - last 48 hr 02/13/20 02/13/20 02/14/20 16:42 20:25 03:20 WBC RBC Hgb Hct MCV MCH MCHC RDW Plt Count MPV Neut % (Auto) Lymph % (Auto) [place] % (Auto) Eos % (Auto) Baso % (Auto) Neut # (Auto) Lymph # (Auto) [place] # (Auto) Eos # (Auto) Baso # (Auto) Nucleated RBC % (auto) Nucleated RBCs # ESR 57 H PT INR Sodium Potassium Chloride Carbon Dioxide Anion Gap BUN Creatinine GFR Calculation Glucose POC Glucose 110 168 Calculated Osmolality Calcium Phosphorus Magnesium Total Bilirubin AST ALT Alkaline Phosphatase Total Protein Albumin Globulin 02/14/20 02/14/20 02/14/20 03:30 03:30 06:52 WBC 4.7 RBC 2.90 L Hgb 8.4 L Hct 26.8 L MCV 92.4 MCH 29.0 MCHC 31.3 RDW 13.6 Plt Count 339 MPV 9.1 Neut % (Auto) 57.7 Lymph % (Auto) 29.0 [place] % (Auto) 8.6 Eos % (Auto) 3.7 Baso % (Auto) 0.6 Neut # (Auto) 2.7 Lymph # (Auto) 1.4 [place] # (Auto) 0.4 Eos # (Auto) 0.2 Baso # (Auto) 0.0 Nucleated RBC % (auto) 0 Nucleated RBCs # 0.0 ESR PT INR Sodium 136 Potassium 4.2 Chloride 101 Carbon Dioxide 24 Anion Gap 15.2 BUN 22 H Creatinine 0.9 GFR Calculation 69.0 L Glucose 90 POC Glucose 96 Calculated Osmolality 278 L Calcium 9.4 Phosphorus 3.5 Magnesium 1.8 Total Bilirubin 0.2 AST 18 ALT 17 Alkaline Phosphatase 210 H Total Protein 6.7 Albumin 3.3 L Globulin 3.4 02/14/20 02/14/20 02/14/20 10:42 16:07 21:07 WBC RBC Hgb Hct MCV MCH MCHC RDW Plt Count MPV Neut % (Auto) Lymph % (Auto) [place] % (Auto) Eos % (Auto) Baso % (Auto) Neut # (Auto) Lymph # (Auto) [place] # (Auto) Eos # (Auto) Baso # (Auto) Nucleated RBC % (auto) Nucleated RBCs # ESR PT INR Sodium Potassium Chloride Carbon Dioxide Anion Gap BUN Creatinine GFR Calculation Glucose POC Glucose 172 104 185 Calculated Osmolality Calcium Phosphorus Magnesium Total Bilirubin AST ALT Alkaline Phosphatase Total Protein Albumin Globulin 02/15/20 02/15/20 02/15/20 03:25 03:25 03:25 WBC 5.3 RBC 3.19 L Hgb 9.3 L Hct 29.6 L MCV 92.8 MCH 29.2 MCHC 31.4 RDW 13.6 Plt Count 384 MPV 8.5 Neut % (Auto) 55.5 Lymph % (Auto) 31.6 [place] % (Auto) 7.7 Eos % (Auto) 3.9 Baso % (Auto) 0.4 Neut # (Auto) 3.0 Lymph # (Auto) 1.7 [place] # (Auto) 0.4 Eos # (Auto) 0.2 Baso # (Auto) 0.0 Nucleated RBC % (auto) 0 Nucleated RBCs # 0.0 ESR PT 12.70 INR 0.93 Sodium 138 Potassium 4.1 Chloride 102 Carbon Dioxide 25 Anion Gap 15.1 BUN 24 H Creatinine 0.9 GFR Calculation 69.0 L Glucose 92 POC Glucose Calculated Osmolality 282 L Calcium 10.0 Phosphorus 4.7 H Magnesium 1.8 Total Bilirubin 0.2 AST 18 ALT 16 Alkaline Phosphatase 205 H Total Protein 7.0 Albumin 3.6 Globulin 3.4 02/15/20 02/15/20 06:33 11:45 WBC RBC Hgb Hct MCV MCH MCHC RDW Plt Count MPV Neut % (Auto) Lymph % (Auto) [place] % (Auto) Eos % (Auto) Baso % (Auto) Neut # (Auto) Lymph # (Auto) [place] # (Auto) Eos # (Auto) Baso # (Auto) Nucleated RBC % (auto) Nucleated RBCs # ESR PT INR Sodium Potassium Chloride Carbon Dioxide Anion Gap BUN Creatinine GFR Calculation Glucose POC Glucose 98 123 Calculated Osmolality Calcium Phosphorus Magnesium Total Bilirubin AST ALT Alkaline Phosphatase Total Protein Albumin Globulin Micro: Microbiology 02/10/20 21:35 Gram Stain - Final Toe - Right Middle Wound Culture - Final Methicillin Resis Staph Aureus Pseudomonas aeruginosa Strep agalactiae - (group b) Cardiac Studies: No Data to Display
[2020-02-15] MEDS: cefTRIAXone 1,000 MG in sodium chloride 0.9% (plus) 50 ML 100 MG IV (13:00)
[2020-02-15] MEDS: fentaNYL 50 mcg/mL INJ 2mL IVP (13:25)
--- NOTE | 2020-02-15 13:46 | PM.PN ---
Subjective Subjective: Interval history: H&P and hospital stay noted. No acute events overnight. This morning patient seen in PACU awaiting amputation. No nausea, vomiting, headache, dizziness overnight. Patient has remained afebrile and hemodynamically stable. Vitals/I&O/Wt Last Vital Signs Temp 98.4 F 02/15/20 11:38 Pulse 64 02/15/20 11:38 Resp 18 02/15/20 13:25 BP 158/87 02/15/20 11:38 Pulse Ox 100 02/15/20 13:25 02/14/20 02/15/20 02/15/20 22:59 06:59 14:59 Intake Total 360 / 2323.333 300 / 2623.333 300 / 300 Output Total 1300 / 1300 1900 / 3200 Balance -940 / 1023.333 -1600 / -576.667 300 / 300 Physical Exam Narrative: EXAM NARRATIVE: General: No acute distress, AO x3 HEENT: PERRLA, pupils bilaterally equal and reactive Chest: Normal vesicular breath sounds, no added sounds, equal good air entry bilaterally CVS: S1-S2 regular, no murmurs, no tachycardia, no gallops, no rubs Abdomen: Soft, nontender, no organomegaly, bowel sounds present Neuro: No focal deficits, no facial deformity, AO x3, power 5/5 in all limbs Extremities: Left BKA, right third toe mild erythema Data : 02/15/20 03:25 02/15/20 03:25 Micro: Microbiology 02/10/20 21:35 Gram Stain - Final Toe - Right Middle Wound Culture - Final Methicillin Resis Staph Aureus Pseudomonas aeruginosa Strep agalactiae - (group b) A&P Assessment and plan (1) Foot osteomyelitis, right: Status: Acute (2) Cellulitis: Status: Acute (3) Failure of outpatient treatment: Status: Acute (4) Diabetic infection of right foot: Status: Acute (5) History of amputation of right forefoot: Status: Acute (6) Osteomyelitis of foot, right, acute: Status: Acute Additional A&P Information Osteomyelitis of right third toe: Evident on MRI of foot, ESR 69, CRP 32.9 Wound culture positive for MRSA, Pseudomonas, strep atelectasis urine. As per the culture results, sensitivities will narrow her antibiotic coverage to linezolid and levofloxacin. Unfortunately patient is not a good candidate for prolonged IV antibiotics due to affordability, no insurance and patient has agreed to go the treatment route of digit amputation. Patient to undergo amputation today. We will follow-up path results. If edges remain stable patient would most likely need antibiotics only [address] Holloway recommendations. Acute on chronic anemia, hemoglobin 8.2 multifactorial, has B12 and folate deficiency, evidence of iron deficiency as ferritin is 139 with acute infection, iron levels low at 29 Type 1 diabetes Consistent carb diet, Continue with insulin sliding scale and Lantus 5 units nightly. Blood sugars under control. Diabetic gastroparesis without active decompensation She is able to tolerate diet Chronic kidney disease stage II No active worsening of her kidney function Below-knee amputation of left extremity No active wound Fall precautions CAD: without any active chest pain Hold Plavix for surgical intervention and continue aspirin, GI prophylaxis PPI DVT prophylaxis: Heparin Consistent carb diet, Full code Attestations Medical Necessity Statement*: Osteomyelitis, awaiting amputation today Time Spent in Patient Care: Greater than 35 minutes 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 Code Acute Ag Service Manager for [facility] Diagnoses Foot osteomyelitis, right M86.9 Cellulitis L03.90 Failure of outpatient treatment Z78.9 Diabetic infection of right foot E11.628; L08.9 History of amputation of right forefoot Z89.431 Osteomyelitis of foot, right, acute M86.171
[2020-02-15] MEDS: sodium chloride 0.9% 1,000 ML 30 ML IV (14:22)
[2020-02-15] MEDS: neomycin-poly-bacitracin oint 28 gm 1 APPLIC TOPICAL (16:17)
[2020-02-15 16:40] LABS: Glucose Point of Care 83 mg/dL (70-110)
--- NOTE | 2020-02-15 16:44 | SUR.PHASEII ---
PT AWAKE ALERT TRACER CHECK 83, PT VSS PT GIVEN 120ML GRAPE JUICE C/O OF PAIN OF 3 PT OK WITH GOING TO FLOOR FOR FOOD AND PAIN PILL.
--- NOTE | 2020-02-15 17:05 | SUR.PHASEII ---
9170 PT AWAKE ALERT MOVES SELF TO BED, HANDOFF TO MELISSA WOOD AT BEDSIDE. PT DRESSING TO RT FOOT D/I
[2020-02-15 20:08] LABS: Glucose Point of Care 165 mg/dL (70-110)
[2020-02-15] MEDS: insulin glargine 100 units/1 mL 5 UNIT SUBCUT (21:54)
[2020-02-16] VITALS (7 sets, daily range): BP systolic 112–138; BP diastolic 63–78; PULSE 70–74; RESP 12–20; TEMP 36.4–37.1; O2SAT 96–100
[2020-02-16] MEDS: carvedilol 3.125 mg Tablet PO ×2 (00:41→11:19)
[2020-02-16] MEDS: linezolid premix 600 MG/300 ML PREMIX 300 MG IV ×2 (00:42→11:22)
[2020-02-16] MEDS: sodium chloride 0.9% 1,000 ML 30 ML IV (00:44)
[2020-02-16] MEDS: HYDROcodone-acetaminophen 5-325 mg Tablet 1 TAB PO ×2 (04:50→11:19)
[2020-02-16] MEDS: heparin 5,000 unit/mL INJ 1 mL 5000 UNIT SUBCUT (04:51)
[2020-02-16 04:56] LABS: Basophils % 0.3 %; Eosinophils # 0.2 10^3/uL (0.0-0.8); Eosinophils % 2.4 %; Hematocrit 28.7 % (37.0-47.0); Hemoglobin 8.9 g/dL (11.5-15.3); Lymphocytes # 1.7 10^3/uL (0.8-4.8); Lymphocytes % 24.8 %; Mean Corpuscular Hemoglobin 28.9 pg (28.0-34.0); Mean Corpuscular Volume 93.2 fL (81-99); Mean Platelet Volume 8.6 fL (7.4-10.4); Monocytes # 0.5 10^3/uL (0.2-0.9); Monocytes % 6.9 %; Neutrophils # 4.3 10^3/uL (1.8-7.7); Neutrophils % 64.8 %; Nucleated Red Blood Cells % 0 %; Platelet Count 369 10^3/cmm (130-400); Red Blood Count 3.08 10^6/uL (4.1-5.3); Red Cell Distribution Width 14.2 % (12.1-15.1); White Blood Count 6.7 10^3/uL (4.0-10.0)
[2020-02-16 05:13] LABS: Alanine Aminotransferase 14 U/L (0-33); Albumin Level 3.4 g/dL (3.5-5.2); Alkaline Phosphatase 169 IU/L (35-105); Anion Gap 15.9 (5-19); Aspartate Amino Transferase 14 U/L (0-32); Blood Urea Nitrogen 26 mg/dL (6-20); Calcium 9.2 mg/dL (8.5-10.5); Carbon Dioxide 24 mmol/L (22-29); Chloride 102 mmol/L (98-107); Globulin 3.1 g/dL (1.3-4.6); Glomerular Filtration Rate 61.1 mL/min (90-130); Glucose 141 mg/dL (65-115); Osmolality Calculated 285 mOsm/kg (285-295); Potassium 3.9 mmol/L (3.5-5.1); Sodium 138 mmol/L (136-145); Total Bilirubin 0.2 mg/dL (0.15-1.2); Total Protein 6.5 g/dL (6.6-8.7)
[2020-02-16 06:37] LABS: Glucose Point of Care 143 mg/dL (70-110)
[2020-02-16] MEDS: ferrous sulfate EC 325 mg Tablet PO (09:22)
[2020-02-16] MEDS: aspirin 81 mg EC Tablet PO (09:23)
[2020-02-16] MEDS: lisinopril 2.5 mg Tablet PO (09:23)
[2020-02-16] MEDS: levoFLOXacin 750 mg Tablet PO (09:23)
[2020-02-16] MEDS: folic acid 1 mg Tablet PO (09:23)
[2020-02-16] MEDS: pantoprazole DR 40 mg Tablet PO (09:23)
[2020-02-16] MEDS: cyanocobalamin 1,000 mcg Tablet 1000 MCG PO (09:23)
[2020-02-16] MEDS: gabapentin 300 mg Capsule PO ×2 (09:23→14:31)
[2020-02-16 11:05] LABS: Glucose Point of Care 123 mg/dL (70-110)
--- NOTE | 2020-02-16 12:27 | ANE.PACU2 ---
Inpatient post-anesthesia follow up: Airway intact: Yes Vital signs: Temperature 98.3 F Pulse Rate [Monito r] 88 Pulse Rate 70 Respiratory Rate 12 Blood Pressure [Ri ght Arm] 155/88 Blood Pressure 127/75 Pulse Oximetry 98 Oxygen Delivery Me thod Room Air Oxygen Flow Rate Fraction of Inspir ed Oxygen Hydration adequate: Yes Nausea and vomiting: No Pain level: 5 Mental status: Baseline
--- NOTE | 2020-02-16 13:52 | P.DS_ITS ---
Discharge Providers Date of Admission: 02/10/20 21:16 Date of Discharge: February 16, 2020 Attending Provider at Admission: Gracia Gonzalez MD Attending Provider at Discharge: Jose A Moore MD Diagnoses at Discharge Discharge Diagnosis (1) Foot osteomyelitis, right: Status: Acute (2) Cellulitis: Status: Acute (3) Failure of outpatient treatment: Status: Acute (4) Diabetic infection of right foot: Status: Acute (5) History of amputation of right forefoot: Status: Acute (6) Osteomyelitis of foot, right, acute: Status: Acute Reason for Visit Reason for Visit: foot swelling and pain Hospital Course Discharge Summary: Cherrie Steel is a 39 year old female with history of type 1 diabetes, Charcot foot, peripheral neuropathy, gastroparesis requiring PEG tube placement in the past, left below-knee amputation, recent partial amputation of right second toe by Dr. Sin coming in with chief complaint of worsening right leg pain and swelling. Patient is stating that she noticed swelling about 2 to 3 days ago, she tried to keep her leg elevated but did not help her symptoms, she did not experience any fever, chills, vomiting, today she started experiencing pain in her leg which was getting worse, she is not able to bear weight on her foot anymore. She is stating that about 3 weeks ago when she was trying to remove the blanket it plucked out her nail from third toe and since then her wound has been getting worse and today she also noticed a blister on her third toe. Her blood sugar lately has been ranging between 1 20-1 40s, her Lantus dose has been decreased to 5 units at 10 because of hypoglycemia. Diagnosis in the ER revealed worsening cellulitis of third toe, with a hemoglobin of 9.2, white count of 9, sodium of 140, creatinine of 0.8. Patient was admitted to the hospital for further evaluation and care. Surgery was consulted. She was started on broad-spectrum antibiotics. Patient's CRP and ESR were elevated so she underwent MRI of the foot which was consistent with acute osteomyelitis of third distal phalanx. Her wound cultures were consistent with MRSA, Pseudomonas, strep atelectases. Previously the plan was for patient to have a PICC line and prolonged antibiotics for 6 weeks which would be have been culture directed. But as patient did not have any insurance and was not in a state to afford medications on her own patient's further care was discussed with her. She stated she would rather go for amputation of the toe. Patient underwent toe amputation on February 14. She tolerated the procedure well. Her post op stay was uneventful as well. She is been discharged in hemodynamically stable condition with advised to take linezolid, levofloxacin for 5 days which should cover both for MRSA and Pseudomonas as per the culture sensitivities. Patient is also advised to follow-up with Dr. Soto in 2 weeks for suture removal and during her visit with Dr. Soto pathology report of bone edges will also be discussed to make sure that edges were osteomyelitis free. Depending on the path result it would be decided for how long patient would need further antibiotic course. Patient verbalized the understanding and medications have been provided to patient at bedside. Physical Exam Narrative: EXAM NARRATIVE: General: No acute distress, AO x3 HEENT: PERRLA, pupils bilaterally equal and reactive Chest: Normal vesicular breath sounds, no added sounds, equal good air entry bilaterally CVS: S1-S2 regular, no murmurs, no tachycardia, no gallops, no rubs Abdomen: Soft, nontender, no organomegaly, bowel sounds present Neuro: No focal deficits, no facial deformity, AO x3, power 5/5 in all limbs Extremities: Left BKA, right foot surgically bandaged, no drainage. Discharge Data Data Completed and Pending: Completed Studies During Hospitalization Category Date Time Status CT lower leg RT w con [id number] Stat Cat Scan 02/10/20 21:39 Completed XR foot RT min 3V * [id number] Urgent Exams 02/10/20 19:38 Completed MR foot RT wo con * [id number] Stat MRI 02/12/20 14:13 [place] [id number] Urgent Ultrasound 02/10/20 19:42 Completed Pending at discharge Category Date Time Status Complete Blood Co unt w/Auto AM LABS Lab 02/17/20 04:00 Ordered Comprehensive Met abolic Panel AM LA BS Lab 02/17/20 04:00 Ordered Pathology: Surgic al [PTH] Routine Pth 02/15/20 16:34 Ordered Labs from last 24 hours 02/16/20 02/16/20 02/16/20 10:58 06:19 04:10 WBC RBC Hgb Hct MCV MCH MCHC RDW Plt Count MPV Neut % (Auto) Lymph % (Auto) [place] % (Auto) Eos % (Auto) Baso % (Auto) Neut # (Auto) Lymph # (Auto) [place] # (Auto) Eos # (Auto) Baso # (Auto) Nucleated RBC % (a uto) Nucleated RBCs # Sodium 138 Potassium 3.9 Chloride 102 Carbon Dioxide 24 Anion Gap 15.9 BUN 26 H Creatinine 1.0 H GFR Calculation 61.1 L Glucose 141 H POC Glucose 123 143 Calculated Osmolal ity 285 Calcium 9.2 Total Bilirubin 0.2 AST 14 ALT 14 Alkaline Phosphata se 169 H Total Protein 6.5 L Albumin 3.4 L Globulin 3.1 02/16/20 02/15/20 02/15/20 04:10 20:01 16:36 WBC 6.7 RBC 3.08 L Hgb 8.9 L Hct 28.7 L MCV 93.2 MCH 28.9 MCHC 31.0 RDW 14.2 Plt Count 369 MPV 8.6 Neut % (Auto) 64.8 Lymph % (Auto) 24.8 [place] % (Auto) 6.9 Eos % (Auto) 2.4 Baso % (Auto) 0.3 Neut # (Auto) 4.3 Lymph # (Auto) 1.7 [place] # (Auto) 0.5 Eos # (Auto) 0.2 Baso # (Auto) 0.0 Nucleated RBC % (a uto) 0 Nucleated RBCs # 0.0 Sodium Potassium Chloride Carbon Dioxide Anion Gap BUN Creatinine GFR Calculation Glucose POC Glucose 165 83 Calculated Osmolal ity Calcium Total Bilirubin AST ALT Alkaline Phosphata se Total Protein Albumin Globulin Vitals: Last Vital Signs Temp 98.2 F 02/16/20 12:00 Pulse 72 02/16/20 12:00 Resp 14 02/16/20 12:00 BP 126/63 02/16/20 12:00 Pulse Ox 100 02/16/20 12:00 Discharge Plan Discharge Patient Disposition: Home, Self-Care Condition: Stable Prescriptions: New levofloxacin 750 mg Tablet 750 mg PO DAILY Qty: 5 RF: 0 ferrous sulfate 325 mg (65 mg iron) Tablet,Delayed Release (Dr/Ec) 325 mg PO BIDWM Qty: 60 RF: 0 linezolid 600 mg tablet 600 mg PO BID 5 Days Qty: 10 RF: 0 Continued gabapentin 300 mg Capsule 300 mg PO QID RF: 0 clopidogrel [Plavix] 75 mg Tablet 75 mg PO DAILY RF: 0 aspirin [Aspir-81] 81 mg Tablet,Delayed Release (Dr/Ec) 81 mg PO DAILY RF: 0 carvedilol 3.125 mg tablet 3.125 mg PO Q12H RF: 0 insulin lispro [Humalog U-100 Insulin] 100 unit/mL Solution See Rx Instructions .ROUTE .COMPLEX RF: 0 lisinopril 2.5 mg tablet 2.5 mg PO DAILY RF: 0 Lantus Solostar U-100 Insulin 100 unit/mL (3 mL) Insulin Pen 5 unit SUBCUT BEDTIME RF: 0 pantoprazole 40 mg Tablet,Delayed Release (Dr/Ec) 40 mg PO BID 30 Days Qty: 60 RF: 0 oxycodone-acetaminophen 10-325 mg tablet 1 tab PO Q6H PRN (Reason: Moderate Pain) RF: 0 promethazine 25 mg tablet 25 mg PO Q6H PRN (Reason: nausea and vomiting) Qty: 30 RF: 0 Discharge Orders: Discharge Order (Routine); Ordered 02/16/20 Ordered By: Jose A Moore Referrals: Onesimo Soto MD [Physician] - 02/29/20 1:45 pm Discharge Diet: Cardiac and Diabetic Discharge Activity: Resume usual activity Patient Instructions: Iron Supplements (By mouth), Levofloxacin (By mouth), Linezolid (By mouth), Cellulitis (DC), Iron Rich Diet (DC), Osteomyelitis (DC) Activity Restrictions/Additional Instructions: Please follow-up with Dr. Soto in 2 weeks for suture removal. You are on 2 different antibiotics for 5 more days. Please follow-up with your primary care physician within next 7 to 10 days. After showering apply triple antibiotic ointment to wound and wrap with kerlix Discharge Date/Time: 02/16/20 17:39 Discharge Attestations Time Spent in Discharge Care*: greater than 30 min Specific Discharge Activities: Specific discharge activities: educating patient, discussing with pcp/other providers, discussing with complex case manager/social workers/dc planners, documenting/other paperwork and evaluating patient/reviewing data Status at Discharge: Cognitive status at discharge: cognitively intact , Behavioral status at discharge: cooperative , Functional status at discharge: uses cane/walker Overall status at discharge: patient is back to baseline Quality Metrics Clinical Quality Measures During this hospital stay, did patient experience: None 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 Code Acute Plastic Welder for [facility] Fwd Diagnoses Foot osteomyelitis, right M86.9 Cellulitis L03.90 Failure of outpatient treatment Z78.9 Diabetic infection of right foot E11.628; L08.9 History of amputation of right forefoot Z89.431 Osteomyelitis of foot, right, acute M86.171
[2020-02-16 17:03] LABS: Glucose Point of Care 132 mg/dL (70-110)
--- NOTE | 2020-02-16 17:40 | PC.NURSE ---
PT GIVEN DISCHARGE PAPERWORK, GONE OVER APPOINTMENTS AND WOUND CARE ORDERS, DR HOUSTON ORDERED PT TO SHOWER, APPLY ANTIBIOTIC OINTMENT, COVER WITH 4X4, AND THEN WRAP WITH KERLEX. PT STATED SHE UNDERSTOOD THE ORDERS ALONG WITH THE SIGNS AND SYMPTOMS OF INFECTION. NO QUESTIONS OR CONCERNS AT THIS TIME.
== END 2020-02-16 17:39 | disposition home or self-care (01) | DRG 638 ==
LOC: ER 21:51 → MEDSURG 22:55
PROVIDERS: Family Medicine; Physician Assistant; Surgery; Admitting Provider Internal Medicine; Visit Provider Student in an Organized Health Care Education/Training Program
DX: E10.69 Type 1 diabetes mellitus with other specified complication (principal); M86.171 Other acute osteomyelitis, right ankle and foot; L03.115 Cellulitis of right lower limb; Z79.82 Long term (current) use of aspirin; Z79.02 Long term (current) use of antithrombotics/antiplatelets; E10.610 Type 1 diabetes mellitus with diabetic neuropathic arthropathy; E10.42 Type 1 diabetes mellitus with diabetic polyneuropathy; K31.84 Gastroparesis; Z89.512 Acquired absence of left leg below knee; Z89.421 Acquired absence of other right toe(s); F41.8 Other specified anxiety disorders; E10.22 Type 1 diabetes mellitus with diabetic chronic kidney disease; N18.2 Chronic kidney disease, stage 2 (mild); N17.9 Acute kidney failure, unspecified; E86.0 Dehydration; I25.10 Atherosclerotic heart disease of native coronary artery without angina pectoris; Z95.5 Presence of coronary angioplasty implant and graft; E10.21 Type 1 diabetes mellitus with diabetic nephropathy; E10.43 Type 1 diabetes mellitus with diabetic autonomic (poly)neuropathy; E10.65 Type 1 diabetes mellitus with hyperglycemia; E78.5 Hyperlipidemia, unspecified; Z87.891 Personal history of nicotine dependence
CPT/HCPCS: 12345; 36415; 36416; 73630; 73701; 73718; 80048; 80053; 80202; 82607; 82728; 82746; 82962; 83540; 83550; 83605; 83735; 84100; 84703; 85025; 85045; 85610; 85651; 86140; 87040; 87070; 87077; 87186; 87205; 88305; 93971; 96372; 96375; 99282; J0696; J1170; J1644; J1815; J2001; J2020; J2250; J2543; J2704; J2765; J3010; J3370; J7030; J7050; Q9967; S0030

== ENCOUNTER 2020-03-03 11:04 | Emergency (ER) | payer SELFPAY ==
[2020-03-03 11:13] VITALS: BP 155/99; PULSE 81; RESP 16; TEMP 36.8; O2SAT 100; BMI 20.7
--- NOTE | 2020-03-03 11:46 | CTR_ITS ---
PROCEDURE INFORMATION: Exam: CT Abdomen And Pelvis Without Contrast Exam date and time: 03/03/2020 12:22 PM Age: 39 years old Clinical indication: Abdominal pain; Localized; Right lower quadrant (rlq); Prior surgery; Surgery type: Gb. Csection; Patient HX: Rlq pain. Type 1 diabetes TECHNIQUE: Imaging protocol: Computed tomography of the abdomen and pelvis without contrast. Radiation optimization: All CT scans at this facility use at least one of these dose optimization techniques: automated exposure control; mA and/or kV adjustment per patient size (includes targeted exams where dose is matched to clinical indication); or iterative reconstruction. COMPARISON: CT abdomen pelvis w con* [id number] 02/03/2020 7:18 AM RADIATION DOSE METRICS: Total DLP (mGy-cm): 739.26 FINDINGS: Lungs: No acute basilar lung consolidation. Liver: The liver is not enlarged. The previously described low-attenuation focus in the right lower liver is not evident on this noncontrast exam. Gallbladder and bile ducts: Prior cholecystectomy. No biliary ductal dilatation allowing for that. Pancreas: No peripancreatic inflammation. No pancreatic ductal dilation. Spleen: The spleen is homogeneous and is not enlarged. Adrenals: No adrenal mass. Kidneys and ureters: No hydronephrosis or nephrolithiasis. Stomach and bowel: No bowel obstruction, colitis or diverticulitis. Appendix: The appendix has a normal caliber with no wall thickening. No periappendiceal stranding. Intraperitoneal space: No ascites or pneumoperitoneum. Vasculature: No abdominal aortic aneurysm. No iliac or common femoral artery aneurysm. Lymph nodes: No pathologically enlarged lymph nodes. Bladder: No urinary bladder calculus or wall thickening. Reproductive: Unremarkable as visualized. Bones/joints: No acute osseous abnormality. Soft tissues: No acute soft tissue abnormality. CT/CT abdomen pelvis wo con [id number] IMPRESSION: 1. No bowel obstruction, colitis or diverticulitis. 2. Normal appendix. Radiation Dose CTDIVOL = (mGy): DLP = 739.26 (mGy-cm)
[2020-03-03 11:50] VITALS: BP 150/93; PULSE 76; RESP 18; O2SAT 100
[2020-03-03 11:56] VITALS: BP 150/93; PULSE 75; RESP 17; O2SAT 100
[2020-03-03 12:01] LABS: ABG PCO2 36.7 mmHg (35-45); ABG PH Result 7.43 (7.35-7.45); Blood Gas Allen Test Pos; Blood Gas Sample Site Radial, left; Blood Gas Sample Type Arterial; Carboxyhemoglobin 1.2 %THgb (0.4-20.1); HCO3 ABG 24.2 mmol/L (22-26); HGB O2 Sat 96.5 % (95-100); Methemoglobin 0.8 % (0.4-1.5); Oxygen Device ROOM AIR; PO2 ABG 93.2 mmHg (80.0-100.0); Total Hemoglobin 10.1 g/dL (12-16)
--- NOTE | 2020-03-03 12:12 | PC.NURSE ---
At 11:55 patient made aware of order for pain medication ketorolac. Patient stated that she had had that medication before and it didn't work. Patient stated she would like something else for pain. Doctor made aware of request.
[2020-03-03 12:29] LABS: Basophils # 0.1 10^3/uL (0.0-0.1); Basophils % 0.8 %; Eosinophils # 0.1 10^3/uL (0.0-0.8); Eosinophils % 1.1 %; Hematocrit 31.9 % (37.0-47.0); Hemoglobin 9.8 g/dL (11.5-15.3); Lymphocytes # 1.5 10^3/uL (0.8-4.8); Lymphocytes % 24.8 %; Mean Corpuscular HGB Conc 30.7 g/dL (30.0-36.0); Mean Corpuscular Hemoglobin 27.8 pg (28.0-34.0); Mean Corpuscular Volume 90.6 fL (81-99); Mean Platelet Volume 8.2 fL (7.4-10.4); Monocytes # 0.5 10^3/uL (0.2-0.9); Monocytes % 7.9 %; Neutrophils # 3.97 10^3/uL (1.8-7.7); Neutrophils % 65.1 %; Nucleated Red Blood Cells % 0 %; Platelet Count 351 10^3/cmm (130-400); Red Blood Count 3.52 10^6/uL (4.1-5.3); Red Cell Distribution Width 14.7 % (12.1-15.1); White Blood Count 6.1 10^3/uL (4.0-10.0)
--- NOTE | 2020-03-03 12:31 | W.ED.ABDPA2 ---
HPI - Abdominal Pain General: Chief Complaint: Abdominal Pain Stated Complaint: ABDOMINAL PAIN Time Seen by Provider: 03/03/20 11:17 History of Present Illness: HPI narrative: 39-year-old female in the emergency department with complaints of right lower quadrant pain and pelvic pain for the past several days. Patient reports she has a long-standing history of gastroparesis but this is a little bit lower than her usual gastroparesis. She reports she hasn't had a period for about 6 months now since she got sick back the first of the year and hasn't had a period since she denies any vaginal discharge hematuria or dysuria. Patient reports it's a sharp pain this been rather constant over the past 24 hours. She doesn't have any upper abdominal pain currently. Patient denies any fever or chills. She hasn't had any chest pain or shortness of breath. The patient doesn't have any palliative or provocative factors. Associated Symptoms: Reports constipation, GI cramping and nausea; Denies chills, excessive flatus, fever(s), heartburn, hematemesis, melena and vomiting Related Data: Date of Last Menstrual Period: 07/24/18 Review of Systems General: Reports: 10 or more systems reviewed and unremarkable except in HPI and below Const: Denies: fever(s), chills or malaise ENMT: Denies: throat pain or odynophagia Resp: Denies: dyspnea GI: Reports: abdominal pain, nausea, constipation and GI cramping; Denies: vomiting, hematemesis, heartburn, excessive flatus, rectal pain or melena Skin/Breast: Denies: rash PFSH ED PFSH: Medical History CKD (chronic kidney disease) stage 2, GFR 60-89 ml/min -secondary to diabetic nephropathy -baseline Cr is around 1.0 -has FIONA superimposed on CKD likely due to dehydration; FIONA improving -continue to monitor renal function, avoid nephrotoxins, renally dose meds -off IVF hydration Coronary artery disease -hx of CAD s/p stenting -on ASA, Plavix; hold in case of surgery -not on statin Diabetes mellitus type 1 -noted hx of DM type I complicated by nephropathy and neuropathy -A1c-7.5 -Accuchecks, ISS, hypoglycemia precautions -hyperglycemia without DKA Diabetic gastroparesis -secondary to DM type I Hyperlipidemia Surgical History Below-knee amputation of left lower extremity H/O exploratory laparotomy x 3 Previous section x 3 S/P coronary artery stent placement x 1 S/P percutaneous endoscopic gastrostomy (PEG) tube placement Family History Unknown Diabetes extensive, type II Other CHF (congestive heart failure) Social History Smoking and tobacco status: former smoker Quit status (tobacco): has quit using tobacco Former quit date comment: 15 yrs ago Alcohol intake: former Former alcohol use details: 15 yrs ago Household members: spouse Marital status: Sexually active: Yes (1, ) Female Reproductive History: Date of last menstrual period: 07/24/18 Physical Exam Const: COMMON NORMALS: no acute distress, average body habitus, patient oriented x3, no limitations, healthy appearing, alert and well nourished HENMT: COMMON NORMALS: normocephalic HEAD & SCALP: normocephalic Eye: COMMON NORMALS: Equal, round and reactive pupils present, EOMs intact bilaterally and conjunctivae normal CONJUNCTIVA: Yes conjunctivae normal PUPIL: Yes Equal, round and reactive pupils present Neck/C-Spine: COMMON NORMALS: full ROM, no lymphadenopathy, supple, no meningeal signs, no JVD, Thyroid normal and No carotid bruits THYROID: Thyroid normal Chest: COMMONS NORMALS: normal inspection of the chest and normal palpation of entire chest wall Resp: COMMON NORMALS: normal respiratory effort, No retractions, No use of accessory muscles, clear to auscultation bilaterally and percussion normal AUSCULTATION: clear to auscultation bilaterally PERCUSSION: percussion normal Cardio: COMMON NORMALS: no JVD GI: COMMON NORMALS: Normal to inspection, nondistended, normoactive bowel sounds present, Soft to palpation, non-tender (tenderness to palpation in the lower abdomen no rebound or guarding), No hepatosplenomegaly present, no masses and no bruits PALPATION: Yes Soft to palpation and Yes No hepatosplenomegaly present : COMMON NORMALS: Yes no CVA tenderness BLADDER/KIDNEY EXAM: Yes no CVA tenderness Back/Pelvis: COMMON NORMALS: no CVA tenderness Extremity: COMMON NORMALS: normal to inspection, full ROM, capillary refill normal, no joint enlargement, no clubbing, cyanosis or edema, no calf tenderness and no pedal edema Neuro: COMMON NORMALS: patient oriented x3 SENSORIUM/ORIENTATION: Yes alert MENINGEAL SIGNS: Yes no meningeal signs Skin: COMMON NORMALS: no rashes or lesions noted, no wounds, turgor normal, no jaundice, no petechiae and no mottling GENERAL SKIN EXAM: no rashes or lesions noted and turgor normal Course Vital Signs: Vital signs: Vital Signs Temperature 98.3 F 03/03/20 11:13 Pulse Rate 75 03/03/20 11:56 Respiratory Rate 17 03/03/20 11:56 Blood Pressure 150/93 03/03/20 11:56 Pulse Oximetry 100 03/03/20 11:56 MDM - Abdominal Pain MDM Narrative: Medical decision making narrative: discussed the differential diagnosis of acute abdominal pain and patient of childbearing age. Rule out check routine labs she needs a CT scan rule out concerns of appendicitis. Ovarian pathology is also in the differential. Give her some Toradol fluids and recheck her. patient reports she's been helped a little bit by the pain medication she doesn't appear to be in any apparent distress and her vital signs have been reasonably stable here. The patient's workup. Show any obstruction or colitis or appendicitis. Her labs were largely within normal limits prognosis could be some component of gastroparesis she is out of her Reglan and seems to be worse in sets have been okay and her back on the Reglan and see what happens. Follow-up is to be recommended. Lab Data: Labs: Lab Results 03/03/20 03/03/20 03/03/20 Range/Units 11:47 12:09 12:22 WBC 6.1 (4.0-10.0) 10^3/ uL RBC 3.52 L (4.1-5.3) 10^6/u L Hgb 9.8 L (11.5-15.3) g/dL Hct 31.9 L (37.0-47.0) % MCV 90.6 (81-99) fL MCH 27.8 L (28.0-34.0) pg MCHC 30.7 (30.0-36.0) g/dL RDW 14.7 (12.1-15.1) % Plt Count 351 (130-400) 10^3/c mm MPV 8.2 (7.4-10.4) fL Neut % (Auto) 65.1 % Lymph % (Auto) 24.8 % [place] % (Auto) 7.9 % Eos % (Auto) 1.1 % Baso % (Auto) 0.8 % Neut # (Auto) 3.97 (1.8-7.7) 10^3/u L Lymph # (Auto) 1.5 (0.8-4.8) 10^3/u L [place] # (Auto) 0.5 (0.2-0.9) 10^3/u L Eos # (Auto) 0.1 (0.0-0.8) 10^3/u L Baso # (Auto) 0.1 (0.0-0.1) 10^3/u L Nucleated RBC % (a uto) 0 % Nucleated RBCs # 0.0 /100WBC Specimen Type Arterial Sample Site Radial, left ABG pH 7.43 (7.35-7.45) ABG pCO2 36.7 (35-45) mmHg ABG pO2 93.2 (80.0-100.0) mmH g ABG HCO3 24.2 (22-26) mmol/L ABG Base Excess 0.0 (-2.0-2.0) mmol/ L Steve Test Pos Hematocrit 31.0 L (37-47) % Hgb O2 Saturation 96.5 (95-100) % Carboxyhemoglobin 1.2 (0.4-20.1) %THgb Methemoglobin 0.8 (0.4-1.5) % Total Hemoglobin 10.1 L (12-16) g/dL O2 Delivery Device Room air [employer] Delivery Driver ID [email or web address] Sodium (136-145) mmol/L Potassium (3.5-5.1) mmol/L Chloride (98-107) mmol/L Carbon Dioxide (22-29) mmol/L Anion Gap (5-19) BUN (6-20) mg/dL Creatinine (0.5-0.9) mg/dL GFR Calculation (90-130) mL/min Glucose (65-115) mg/dL Calculated Osmolal ity (285-295) mOsm/k g Calcium (8.5-10.5) mg/dL Total Bilirubin (0.15-1.2) mg/dL AST (0-32) U/L ALT (0-33) U/L Alkaline Phosphata se (35-105) IU/L Total Protein (6.6-8.7) g/dL Albumin (3.5-5.2) g/dL Globulin (1.3-4.6) g/dL Lipase (13-60) U/L HCG, Qual Negative (Negative) 03/03/20 Range/Units 12:22 WBC (4.0-10.0) 10^3/ uL RBC (4.1-5.3) 10^6/u L Hgb (11.5-15.3) g/dL Hct (37.0-47.0) % MCV (81-99) fL MCH (28.0-34.0) pg MCHC (30.0-36.0) g/dL RDW (12.1-15.1) % Plt Count (130-400) 10^3/c mm MPV (7.4-10.4) fL Neut % (Auto) % Lymph % (Auto) % [place] % (Auto) % Eos % (Auto) % Baso % (Auto) % Neut # (Auto) (1.8-7.7) 10^3/u L Lymph # (Auto) (0.8-4.8) 10^3/u L [place] # (Auto) (0.2-0.9) 10^3/u L Eos # (Auto) (0.0-0.8) 10^3/u L Baso # (Auto) (0.0-0.1) 10^3/u L Nucleated RBC % (a uto) % Nucleated RBCs # /100WBC Specimen Type Sample Site ABG pH (7.35-7.45) ABG pCO2 (35-45) mmHg ABG pO2 (80.0-100.0) mmH g ABG HCO3 (22-26) mmol/L ABG Base Excess (-2.0-2.0) mmol/ L Steve Test Hematocrit (37-47) % Hgb O2 Saturation (95-100) % Carboxyhemoglobin (0.4-20.1) %THgb Methemoglobin (0.4-1.5) % Total Hemoglobin (12-16) g/dL O2 Delivery Device [employer] Delivery Driver ID Sodium 139 (136-145) mmol/L Potassium 3.7 (3.5-5.1) mmol/L Chloride 105 (98-107) mmol/L Carbon Dioxide 24 (22-29) mmol/L Anion Gap 13.7 (5-19) BUN 16 (6-20) mg/dL Creatinine 0.7 (0.5-0.9) mg/dL GFR Calculation 92.2 (90-130) mL/min Glucose 189 H (65-115) mg/dL Calculated Osmolal ity 289 (285-295) mOsm/k g Calcium 9.0 (8.5-10.5) mg/dL Total Bilirubin 0.4 (0.15-1.2) mg/dL AST 13 (0-32) U/L ALT 19 (0-33) U/L Alkaline Phosphata se 150 H (35-105) IU/L Total Protein 7.3 (6.6-8.7) g/dL Albumin 3.9 (3.5-5.2) g/dL Globulin 3.4 (1.3-4.6) g/dL Lipase 43 (13-60) U/L HCG, Qual (Negative) Discharge Plan Discharge Patient Disposition: Home, Self-Care Clinical Impression: Abdominal pain Qualifiers: Abdominal location: lower abdomen, unspecified Qualified Code(s): R10.30 - Lower abdominal pain, unspecified Condition: Stable Prescriptions: New metoclopramide HCl [Reglan] 10 mg tablet 10 mg PO QID 7 Days Qty: 28 RF: 0 No Action gabapentin 300 mg Capsule 300 mg PO QID RF: 0 levofloxacin 750 mg Tablet 750 mg PO DAILY Qty: 5 RF: 0 ferrous sulfate 325 mg (65 mg iron) Tablet,Delayed Release (Dr/Ec) 325 mg PO BIDWM Qty: 60 RF: 0 clopidogrel [Plavix] 75 mg Tablet 75 mg PO DAILY RF: 0 aspirin [Aspir-81] 81 mg Tablet,Delayed Release (Dr/Ec) 81 mg PO DAILY RF: 0 carvedilol 3.125 mg tablet 3.125 mg PO Q12H RF: 0 insulin lispro [Humalog U-100 Insulin] 100 unit/mL Solution See Rx Instructions .ROUTE .COMPLEX RF: 0 lisinopril 2.5 mg tablet 2.5 mg PO DAILY RF: 0 Lantus Solostar U-100 Insulin 100 unit/mL (3 mL) Insulin Pen 5 unit SUBCUT BEDTIME RF: 0 oxycodone-acetaminophen 10-325 mg tablet 1 tab PO Q6H PRN (Reason: Moderate Pain) RF: 0 promethazine 25 mg tablet 25 mg PO Q6H PRN (Reason: nausea and vomiting) Qty: 30 RF: 0 Discharge Orders: Discharge Order (Routine); Ordered 03/03/20 Ordered By: Jae Kaye Discharge Diet: Diabetic Discharge Activity: Resume usual activity Patient Instructions: Abdominal Pain (ED) 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 Code ED Mat Machine Operator for Kim Fwd Exam Comprehensive
[2020-03-03 12:44] LABS: Alanine Aminotransferase 19 U/L (0-33); Albumin Level 3.9 4.5 (3.5-5.2); Alkaline Phosphatase 150 IU/L (35-105); Anion Gap 13.7 (5-19); Aspartate Amino Transferase 13 U/L (0-32); Blood Urea Nitrogen 16 mg/dL (6-20); Carbon Dioxide 24 mmol/L (22-29); Chloride 105 mmol/L (98-107); Globulin 3.4 g/dL (1.3-4.6); Glomerular Filtration Rate 92.2 mL/min (90-130); Glucose 189 mg/dL (65-115); Lipase 43 U/L (13-60); Osmolality Calculated 289 mOsm/kg (285-295); Potassium 3.7 mmol/L (3.5-5.1); Sodium 139 mmol/L (136-145); Total Bilirubin 0.4 mg/dL (0.15-1.2); Total Protein 7.3 g/dL (6.6-8.7)
[2020-03-03 13:08] LABS: HCG Qualitative Urine. Negative (Negative)
[2020-03-03 14:25] LABS: Add Urine Microscopic? YES; Bilirubin Urine Neg (NEGATIVE); Blood Urine Neg (Negative); Glucose Urine UA Trace (Normal); Ketones Urine Negative (Negative); Leukocyte Esterase Urine Negative (Negative); Nitrate Urine Negative (Negative); Protein Urine 2+ (Negative); Specific Gravity, Urine 1.025 (1.005-1.030); Urine Appearance Clear (CLEAR); Urine Color Yellow (Yellow); Urobilinogen Urine Norm (Negative); pH Urine 5 (5-7)
[2020-03-03 14:33] LABS: Bacteria Urine 1+; Mucus Urine TRACE; RBC Urine 0-4 /hpf (0-2); Squamous Epithelial Cell Urine 15-25 (0-5)
[2020-03-03 14:34] LABS: Add Urine Culture? No; Hyaline Casts Urine 0-4
[2020-03-03 15:04] VITALS: BP 155/98; PULSE 78; RESP 18; O2SAT 98
== END 2020-03-03 15:05 | disposition home or self-care (01) ==
PROVIDERS: Emergency Provider Family Medicine
DX: R10.30 Lower abdominal pain, unspecified (principal); Z79.02 Long term (current) use of antithrombotics/antiplatelets; Z79.82 Long term (current) use of aspirin; Z79.4 Long term (current) use of insulin; Z87.891 Personal history of nicotine dependence; E10.22 Type 1 diabetes mellitus with diabetic chronic kidney disease; N18.2 Chronic kidney disease, stage 2 (mild); I25.10 Atherosclerotic heart disease of native coronary artery without angina pectoris; E78.5 Hyperlipidemia, unspecified; Z89.512 Acquired absence of left leg below knee
CPT/HCPCS: 12345; 36600; 74176; 80053; 81001; 81003; 81025; 82805; 83690; 85025; 99282; 99283

== ENCOUNTER 2020-03-05 11:00 | Emergency (ER) | payer SELFPAY ==
[2020-03-05 11:00] VITALS: BMI 20.7
[2020-03-05 11:06] VITALS: BP 156/116; PULSE 108; RESP 16; TEMP 37.1; O2SAT 98
--- NOTE | 2020-03-05 11:11 | ED_ITS ---
HPI - Abdominal Pain General: Chief Complaint: Abdominal Pain Stated Complaint: ABD PAIN Time Seen by Provider: 03/05/20 11:09 History of Present Illness: HPI narrative: Patient is a 39-year-old female who comes in the ED with abdominal pain. Patient has a past medical history of osteomyelitis with an amputation of the right forefoot, diabetes, hypertension. Patient has had her gallbladder removed and has had 3 C-sections. Abdominal pain started on Saturday and is located in the right lower quadrant and radiates to the right side of her lower back. She says it is sharp pain and she rates it a 10 out of 10. She is also having nausea and vomiting along with the pain and has had trouble keeping food and drink down. Patient also says she has not been taking any of her blood pressure medications for the past 3 to 4 days because she cannot keep them down. Denies any fever, chills, chest pain, shortness of breath, diarrhea, constipation, blood in the stool, dysuria or hematuria. Associated Symptoms: Reports nausea and vomiting; Denies chills, constipation, diarrhea, dysuria, fever(s), hematochezia and hematuria Related Data: Date of Last Menstrual Period: 07/24/18 Review of Systems Const: Denies: fever(s), chills or fatigue Eyes: Denies: change in vision or eye discomfort ENMT: Denies: throat pain, odynophagia, nasal discharge or nasal congestion Card: Denies: chest pain, palpitations, edema, swelling of feet/ankles, dyspnea on exertion or orthopnea Resp: Denies: dyspnea, productive cough or non-productive cough GI: Reports: abdominal pain, nausea and vomiting; Denies: diarrhea, constipation or hematochezia : Denies: flank pain, dysuria or hematuria Musc: Denies: neck pain, back pain or extremity swelling Skin/Breast: Denies: rash or new lesions Neuro: Denies: headache(s), numbness in extremities or weakness in extremities PFS ED PFSH: Medical History CKD (chronic kidney disease) stage 2, GFR 60-89 ml/min -secondary to diabetic nephropathy -baseline Cr is around 1.0 -has FIONA superimposed on CKD likely due to dehydration; FIONA improving -continue to monitor renal function, avoid nephrotoxins, renally dose meds -off IVF hydration Coronary artery disease -hx of CAD s/p stenting -on ASA, Plavix; hold in case of surgery -not on statin Diabetes mellitus type 1 -noted hx of DM type I complicated by nephropathy and neuropathy -A1c-7.5 -Accuchecks, ISS, hypoglycemia precautions -hyperglycemia without DKA Diabetic gastroparesis -secondary to DM type I Hyperlipidemia Surgical History Below-knee amputation of left lower extremity H/O exploratory laparotomy x 3 Previous section x 3 S/P coronary artery stent placement x 1 S/P percutaneous endoscopic gastrostomy (PEG) tube placement Family History Unknown Diabetes extensive, type II Other CHF (congestive heart failure) Social History Smoking and tobacco status: former smoker Quit status (tobacco): has quit using tobacco Former quit date comment: 15 yrs ago Alcohol intake: former Former alcohol use details: 15 yrs ago Household members: spouse Marital status: Sexually active: Yes (1, ) Female Reproductive History: Date of last menstrual period: 07/24/18 Physical Exam Const: COMMON NORMALS: patient oriented x3 and alert GENERAL APPEARANCE: cooperative and in distress (pt appears in pain and is emotional and crying.) HENMT: COMMON NORMALS: normocephalic HEAD & SCALP: normocephalic MOUTH: Normal oral and palatal mucosa present THROAT: posterior oropharynx normal and uvula midline Eye: COMMON NORMALS: Equal, round and reactive pupils present PUPIL: Yes Equal, round and reactive pupils present Neck/C-Spine: COMMON NORMALS: supple GENERAL: Yes normal visual inspection Resp: COMMON NORMALS: normal respiratory effort, No retractions, No use of accessory muscles and clear to auscultation bilaterally EFFORT & INSPECTION: Yes able to speak in complete sentences AUSCULTATION: clear to auscultation bilaterally Cardio: COMMON NORMALS: regular rate, regular rhythm, S1 normal heart sound present, S2 normal heart sound present, No gallops present (Cardio), No clicks present (Cardio), No murmurs present (Cardio) and Peripheral pulses 2+ throughout RATE: regular rate RHYTHM: regular rhythm HEART SOUNDS: S1 normal heart sound present and S2 normal heart sound present PERIPHERAL PULSES: Peripheral pulses 2+ throughout GI: COMMON NORMALS: Normal to inspection, nondistended, normoactive bowel sounds present, Soft to palpation and no masses INSPECTION: Yes scar (c- section scar on lower abdomen.) and Yes striae PALPATION: Yes Soft to p alpation and Yes Tenderness to palpation present (GI) Details: RLQ : BLADDER/KIDNEY EXAM: Yes CVA tenderness on the right Back/Pelvis: GENERAL BACK: Yes CVA tenderness Extremity: COMMON NORMALS: no pedal edema GENERAL: Yes normal exam except as noted and Yes amputation (Right forefoot amputation) Neuro: COMMON NORMALS: patient oriented x3 SENSORIUM/ORIENTATION: Yes alert GAIT: Yes Normal gait present Skin: COMMON NORMALS: no rashes or lesions noted GENERAL SKIN EXAM: no rashes or lesions noted and dry skin Course Reevaluation(s): Reevaluation #1: Patient's pain improved after dose of Dilaudid. She was resting comfortably in bed. Vital Signs: Vital signs: Vital Signs Temperature 98.8 F 03/05/20 11:06 Pulse Rate 107 H 03/05/20 14:59 Respiratory Rate 18 03/05/20 14:59 Blood Pressure 142/85 03/05/20 14:59 Pulse Oximetry 100 03/05/20 14:59 145/86 at 1330. MDM - Abdominal Pain MDM Narrative: Medical decision making narrative: pt is a 39 y/o F that comes to the ED with abdominal pain and nausea/vomiting. pt had mild tenderness in RLQ and oral mucous membranes were dry. WBC 8.9, Cr 1.2-pt states she has not been able to eat or drink much of anything since saturday so likely due dehydration. Her blood pressure was elevated 209/124, while here on the unit even after pain was controlled. pt stated she had not been taking her two BP meds for the last 3-4 days. Pt bp was reduced with IV hydralazine. CT of abdomen showed no acute findings. Pt's pain and nausea was well controlled while here on the ED. She was diagnosed with abdominal pain RLQ and sent home with a script for zofran. She was told to start taking her BP meds again and to drink plenty of fluids. Follow up with her PCP in 3-5 days to recheck creatinine level. return to ED if symptoms worsen. pt understood and agreed with plan. Lab Data: Attestation: I reviewed the patient's lab results. Labs: Lab Results 03/05/20 03/05/20 03/05/20 Range/Units 11:28 11:28 11:28 WBC 8.9 (4.0-10.0) 10^3/ uL RBC 3.92 L (4.1-5.3) 10^6/u L Hgb 11.1 L (11.5-15.3) g/dL Hct 34.3 L (37.0-47.0) % MCV 87.5 (81-99) fL MCH 28.3 (28.0-34.0) pg MCHC 32.4 (30.0-36.0) g/dL RDW 14.5 (12.1-15.1) % Plt Count 386 (130-400) 10^3/c mm MPV 8.1 (7.4-10.4) fL Neut % (Auto) 75.3 % Lymph % (Auto) 15.8 % [place] % (Auto) 8.2 % Eos % (Auto) 0.1 % Baso % (Auto) 0.3 % Neut # (Auto) 6.67 (1.8-7.7) 10^3/u L Lymph # (Auto) 1.4 (0.8-4.8) 10^3/u L [place] # (Auto) 0.7 (0.2-0.9) 10^3/u L Eos # (Auto) 0.0 (0.0-0.8) 10^3/u L Baso # (Auto) 0.0 (0.0-0.1) 10^3/u L Nucleated RBC % (a uto) 0 % Nucleated RBCs # 0.0 /100WBC Sodium 137 (136-145) mmol/L Potassium 3.3 L (3.5-5.1) mmol/L Chloride 98 (98-107) mmol/L Carbon Dioxide 25 (22-29) mmol/L Anion Gap 17.3 (5-19) BUN 33 H (6-20) mg/dL Creatinine 1.2 H (0.5-0.9) mg/dL GFR Calculation 49.5 L (90-130) mL/min Glucose 170 H (65-115) mg/dL Calculated Osmolal ity 285 (285-295) mOsm/k g Calcium 10.2 (8.5-10.5) mg/dL Total Bilirubin 0.7 (0.15-1.2) mg/dL AST 18 (0-32) U/L ALT 18 (0-33) U/L Alkaline Phosphata se 158 H (35-105) IU/L Total Protein 8.5 (6.6-8.7) g/dL Albumin 4.7 (3.5-5.2) g/dL Globulin 3.8 (1.3-4.6) g/dL Lipase 35 (13-60) U/L HCG, Qual Negative (Negative) Urine Color (Yellow) Urine Appearance (CLEAR) Urine pH (5-7) Ur Specific Gravit y (1.005-1.030) Urine Protein (Negative) Urine Glucose (UA) (Normal) Urine Ketones (Negative) Urine Blood (Negative) Urine Nitrate (Negative) Urine Bilirubin (NEGATIVE) Urine Urobilinogen (Negative) mg/dL Ur Leukocyte Estephania ase (Negative) Urine RBC (0-2) /hpf Urine WBC (0-5) /hpf Ur Squamous Epith Cells (0-5) Amorphous Sediment Urine Bacteria (NONE) 03/05/20 Range/Units 12:28 WBC (4.0-10.0) 10^3/ uL RBC (4.1-5.3) 10^6/u L Hgb (11.5-15.3) g/dL Hct (37.0-47.0) % MCV (81-99) fL MCH (28.0-34.0) pg MCHC (30.0-36.0) g/dL RDW (12.1-15.1) % Plt Count (130-400) 10^3/c mm MPV (7.4-10.4) fL Neut % (Auto) % Lymph % (Auto) % [place] % (Auto) % Eos % (Auto) % Baso % (Auto) % Neut # (Auto) (1.8-7.7) 10^3/u L Lymph # (Auto) (0.8-4.8) 10^3/u L [place] # (Auto) (0.2-0.9) 10^3/u L Eos # (Auto) (0.0-0.8) 10^3/u L Baso # (Auto) (0.0-0.1) 10^3/u L Nucleated RBC % (a uto) % Nucleated RBCs # /100WBC Sodium (136-145) mmol/L Potassium (3.5-5.1) mmol/L Chloride (98-107) mmol/L Carbon Dioxide (22-29) mmol/L Anion Gap (5-19) BUN (6-20) mg/dL Creatinine (0.5-0.9) mg/dL GFR Calculation (90-130) mL/min Glucose (65-115) mg/dL Calculated Osmolal ity (285-295) mOsm/k g Calcium (8.5-10.5) mg/dL Total Bilirubin (0.15-1.2) mg/dL AST (0-32) U/L ALT (0-33) U/L Alkaline Phosphata se (35-105) IU/L Total Protein (6.6-8.7) g/dL Albumin (3.5-5.2) g/dL Globulin (1.3-4.6) g/dL Lipase (13-60) U/L HCG, Qual (Negative) Urine Color Yellow (Yellow) Urine Appearance Clear (CLEAR) Urine pH 6.5 (5-7) Ur Specific Gravit y 1.010 (1.005-1.030) Urine Protein 2+ H (Negative) Urine Glucose (UA) Trace H (Normal) Urine Ketones Negative (Negative) Urine Blood 2+ H (Negative) Urine Nitrate Negative (Negative) Urine Bilirubin Neg (NEGATIVE) Urine Urobilinogen Norm (Negative) mg/dL Ur Leukocyte Estephania ase Negative (Negative) Urine RBC 0-4 H (0-2) /hpf Urine WBC 5-10 H (0-5) /hpf Ur Squamous Epith Cells 0-4 H (0-5) Amorphous Sediment Not Reportable Urine Bacteria Trace (NONE) Imaging Data ^: CT Abd/Pel: Attestation: I personally reviewed and interpreted this imaging study as follows: Radiologist's impression: [address] [address] [address] Scan Report Signed Patient: Cherrie Steel Unit #: [id number] : 1980 Acct#:O [id number] Age/Sex: 39 / F ADM Date: 03/05/20 Loc: ER Room/Bed: Attending Dr: Ordering Provider/Ordering MD: Roger Salas Date of Service: 03/05/20 Procedure(s): CT abdomen pelvis w con* [id number] Accession Number(s): [id number] Report Number: [id number] PROCEDURE INFORMATION: Exam: CT Abdomen And Pelvis With Contrast Exam date and time: 03/05/2020 11:23 AM Age: 39 years old Clinical indication: Abdominal pain; Localized; Right lower quadrant (rlq); Prior surgery; Surgery type: Peg tube, c-sect; Patient HX: C/O rlq pain w n/v; Additional info: Rlq pain, n/v TECHNIQUE: Imaging protocol: Computed tomography of the abdomen and pelvis with intravenous contrast. Radiation optimization: All CT scans at this facility use at least one of these dose optimization techniques: automated exposure control; mA and/or kV adjustment per patient size (includes targeted exams where dose is matched to clinical indication); or iterative reconstruction. Contrast material: OMNI 300; Contrast volume: 95 ml; Contrast route: INTRAVENOUS (IV); COMPARISON: CT abdomen pelvis wo con [id number] 03/03/2020 1:28 PM RADIATION DOSE METRICS: Total DLP (mGy-cm): 575.19 FINDINGS: Liver: No mass. Gallbladder and bile ducts: Cholecystectomy. Pancreas: Normal. No ductal dilation. Spleen: Normal. No splenomegaly. Adrenals: Normal. No mass. Kidneys and ureters: Normal. No hydronephrosis. Stomach and bowel: No acute findings. No obstruction. No mucosal thickening. Appendix: No evidence of appendicitis. Intraperitoneal space: Unremarkable. No free air. No significant fluid collection. Vasculature: No abdominal aortic aneurysm. Lymph nodes: No significant adenopathy. Bladder: Unremarkable as visualized. Reproductive: Unremarkable as visualized. Bones/joints: No acute findings. Soft tissues: Unremarkable. CT/CT abdomen pelvis w con* [id number] IMPRESSION: No acute findings. Radiation Dose CTDIVOL = (mGy): DLP = 575.19 (mGy-cm) Dictated By: Nakul Browning MD Signed By: Nakul Browning MD Signed Date/Time: 03/05/20 1237 DD/ 1236 Discharge Plan Discharge Patient Disposition: Home, Self-Care Clinical Impression: Abdominal pain Qualifiers: Abdominal location: right lower quadrant Qualified Code(s): R10.31 - Right lower quadrant pain Nausea & vomiting Qualifiers: Vomiting type: unspecified Vomiting Intractability: non-intractable Qualified Code(s): R11.2 - Nausea with vomiting, unspecified Condition: Stable Prescriptions: New ondansetron 4 mg tablet,disintegrating 4 mg PO Q8H Qty: 20 RF: 0 No Action gabapentin 300 mg Capsule 300 mg PO QID RF: 0 levofloxacin 750 mg Tablet 750 mg PO DAILY Qty: 5 RF: 0 ferrous sulfate 325 mg (65 mg iron) Tablet,Delayed Release (Dr/Ec) 325 mg PO BIDWM Qty: 60 RF: 0 clopidogrel [Plavix] 75 mg Tablet 75 mg PO DAILY RF: 0 aspirin [Aspir-81] 81 mg Tablet,Delayed Release (Dr/Ec) 81 mg PO DAILY RF: 0 carvedilol 3.125 mg tablet 3.125 mg PO Q12H RF: 0 insulin lispro [Humalog U-100 Insulin] 100 unit/mL Solution See Rx Instructions .ROUTE .COMPLEX RF: 0 lisinopril 2.5 mg tablet 2.5 mg PO DAILY RF: 0 Lantus Solostar U-100 Insulin 100 unit/mL (3 mL) Insulin Pen 5 unit SUBCUT BEDTIME RF: 0 oxycodone-acetaminophen 10-325 mg tablet 1 tab PO Q6H PRN (Reason: Moderate Pain) RF: 0 promethazine 25 mg tablet 25 mg PO Q6H PRN (Reason: nausea and vomiting) Qty: 30 RF: 0 Reglan 10 mg tablet 10 mg PO QID 7 Days Qty: 28 RF: 0 Discharge Orders: Discharge Order (Routine); Ordered 03/05/20 Ordered By: Roger Salas Discharge Diet: Advance as tolerated Discharge Activity: Increase activity as tolerated Patient Instructions: Abdominal Pain (ED) Activity Restrictions/Additional Instructions: Follow-up with medical provider as directed to get Creatinine level checked in 3-5 days. Plenty fluids and stay hydrated. Take medications as prescribed. Start slow with your diet and do clear liquids for the next 24 hours then advance as tolerated. Continue taking all home medications including your previously prescribed blood pressure meds. You can take Tylenol or ibuprofen for pain. Return to the ER or your medical provider if condition worsens. Please read and understand discharge instructions. If any questions, please ask. Discharge Date/Time: 03/05/20 15:02 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 Code ED Foreman Or Supervisor And Operator for Kim Mitchell Exam Comprehensive
--- NOTE | 2020-03-05 11:19 | CTR_ITS ---
PROCEDURE INFORMATION: Exam: CT Abdomen And Pelvis With Contrast Exam date and time: 03/05/2020 11:23 AM Age: 39 years old Clinical indication: Abdominal pain; Localized; Right lower quadrant (rlq); Prior surgery; Surgery type: Peg tube, c-sect; Patient HX: C/O rlq pain w n/v; Additional info: Rlq pain, n/v TECHNIQUE: Imaging protocol: Computed tomography of the abdomen and pelvis with intravenous contrast. Radiation optimization: All CT scans at this facility use at least one of these dose optimization techniques: automated exposure control; mA and/or kV adjustment per patient size (includes targeted exams where dose is matched to clinical indication); or iterative reconstruction. Contrast material: OMNI 300; Contrast volume: 95 ml; Contrast route: INTRAVENOUS (IV); COMPARISON: CT abdomen pelvis wo con [id number] 03/03/2020 1:28 PM RADIATION DOSE METRICS: Total DLP (mGy-cm): 575.19 FINDINGS: Liver: No mass. Gallbladder and bile ducts: Cholecystectomy. Pancreas: Normal. No ductal dilation. Spleen: Normal. No splenomegaly. Adrenals: Normal. No mass. Kidneys and ureters: Normal. No hydronephrosis. Stomach and bowel: No acute findings. No obstruction. No mucosal thickening. Appendix: No evidence of appendicitis. Intraperitoneal space: Unremarkable. No free air. No significant fluid collection. Vasculature: No abdominal aortic aneurysm. Lymph nodes: No significant adenopathy. Bladder: Unremarkable as visualized. Reproductive: Unremarkable as visualized. Bones/joints: No acute findings. Soft tissues: Unremarkable. CT/CT abdomen pelvis w con* [id number] IMPRESSION: No acute findings. Radiation Dose CTDIVOL = (mGy): DLP = 575.19 (mGy-cm)
[2020-03-05] MEDS: sodium chloride 0.9% 1,000 ML 999 ML IV (11:25)
[2020-03-05] MEDS: ondansetron 2 mg/ML SDV 2 mL 4 MG IVP (11:27)
[2020-03-05] MEDS: HYDROmorphone 1 mg/mL INJ 1 mL IVP (11:28)
[2020-03-05 11:35] LABS: Basophils % 0.3 %; Eosinophils % 0.1 %; Hematocrit 34.3 % (37.0-47.0); Hemoglobin 11.1 g/dL (11.5-15.3); Lymphocytes # 1.4 10^3/uL (0.8-4.8); Lymphocytes % 15.8 %; Mean Corpuscular HGB Conc 32.4 g/dL (30.0-36.0); Mean Corpuscular Hemoglobin 28.3 pg (28.0-34.0); Mean Corpuscular Volume 87.5 fL (81-99); Mean Platelet Volume 8.1 fL (7.4-10.4); Monocytes # 0.7 10^3/uL (0.2-0.9); Monocytes % 8.2 %; Neutrophils # 6.67 10^3/uL (1.8-7.7); Neutrophils % 75.3 %; Nucleated Red Blood Cells % 0 %; Platelet Count 386 10^3/cmm (130-400); Red Blood Count 3.92 10^6/uL (4.1-5.3); Red Cell Distribution Width 14.5 % (12.1-15.1); White Blood Count 8.9 10^3/uL (4.0-10.0)
[2020-03-05 11:45] LABS: HCG, Serum Qual Negative (Negative)
[2020-03-05 11:48] LABS: Alanine Aminotransferase 18 U/L (0-33); Albumin Level 4.7 g/dL (3.5-5.2); Alkaline Phosphatase 158 IU/L (35-105); Anion Gap 17.3 (5-19); Aspartate Amino Transferase 18 U/L (0-32); Blood Urea Nitrogen 33 mg/dL (6-20); Calcium 10.2 mg/dL (8.5-10.5); Carbon Dioxide 25 mmol/L (22-29); Chloride 98 mmol/L (98-107); Globulin 3.8 g/dL (1.3-4.6); Glomerular Filtration Rate 49.5 mL/min (90-130); Glucose 170 mg/dL (65-115); Lipase 35 U/L (13-60); Osmolality Calculated 285 mOsm/kg (285-295); Potassium 3.3 mmol/L (3.5-5.1); Sodium 137 mmol/L (136-145); Total Bilirubin 0.7 mg/dL (0.15-1.2); Total Protein 8.5 g/dL (6.6-8.7)
[2020-03-05] MEDS: iohexol 300 mg/mL 100 mL Btl IV (11:49)
[2020-03-05 12:07] VITALS: BP 209/124; PULSE 98; RESP 16; O2SAT 100
[2020-03-05] MEDS: hyDRALAzine 20 mg/mL INJ 1 mL 10 MG IVP (12:22)
[2020-03-05] MEDS: metoclopramide 5 mg/mL SDV 2 mL 10 MG IVP (12:32)
[2020-03-05 12:33] VITALS: RESP 18; O2SAT 98
[2020-03-05] MEDS: HYDROmorphone 1 mg/mL INJ 1 mL 0.5 MG IVP (12:33)
[2020-03-05 14:02] VITALS: BP 153/88; PULSE 98; RESP 18; O2SAT 100
--- NOTE | 2020-03-05 14:05 | PC.NURSE ---
resting with eyes closed, arouses easily, states pain is tolerable
[2020-03-05 14:28] LABS: Urine Appearance Clear (CLEAR); Urine Color Yellow (Yellow)
[2020-03-05 14:29] LABS: Add Urine Culture? No; Add Urine Microscopic? YES; Bacteria Urine TRACE; Bilirubin Urine Neg (NEGATIVE); Blood Urine 2+ (Negative); Glucose Urine UA Trace (Normal); Ketones Urine Negative (Negative); Leukocyte Esterase Urine Negative (Negative); Nitrate Urine Negative (Negative); Protein Urine 2+ (Negative); RBC Urine 0-4 /hpf (0-2); Squamous Epithelial Cell Urine 0-4 (0-5); Urobilinogen Urine Norm (Negative); pH Urine 6.5 (5-7)
[2020-03-05 14:59] VITALS: BP 142/85; PULSE 107; RESP 18; O2SAT 100
== END 2020-03-05 15:02 | disposition home or self-care (01) ==
PROVIDERS: Emergency Provider Physician Assistant
DX: R10.31 Right lower quadrant pain (principal); R11.2 Nausea with vomiting, unspecified; Z79.82 Long term (current) use of aspirin; Z79.02 Long term (current) use of antithrombotics/antiplatelets; Z79.4 Long term (current) use of insulin; E10.22 Type 1 diabetes mellitus with diabetic chronic kidney disease; N18.2 Chronic kidney disease, stage 2 (mild); I25.10 Atherosclerotic heart disease of native coronary artery without angina pectoris; E78.5 Hyperlipidemia, unspecified; Z87.891 Personal history of nicotine dependence
CPT/HCPCS: 12345; 74177; 80053; 81001; 81003; 83690; 84703; 85025; 87040; 87205; 96361; 96374; 96375; 96376; 99282; 99283; 99284; J0360; J1170; J2405; J2765; J7030; Q9967

== ENCOUNTER 2020-03-08 10:15 | Inpatient (IN) | payer SELFPAY ==
[2020-03-08] VITALS (13 sets, daily range): BP systolic 131–154; BP diastolic 80–96; PULSE 67–83; RESP 16–20; TEMP 36.5–36.8; O2SAT 98–100; BMI 20.7
--- NOTE | 2020-03-08 10:24 | ED_ITS ---
HPI - Abdominal Pain General: Chief Complaint: Abdominal Pain Stated Complaint: ABDOMINAL PAIN Time Seen by Provider: 03/08/20 10:21 History of Present Illness: HPI narrative: 39 yo female presents via EMS with complaint of abdominal pain. She has type 1 diabetes mellitus and has had a lot of complications from that she does have diabetic gastroparesis. she states this feels more in her lower abdomen in the epigastric area she is not had any diarrhea but has had some nausea and vomiting. Has not had any known exposure to people with COVID-19. She is not had any GI blood loss she has not had any dysuria urgency or frequency denies any respiratory symptoms. Incidentally noted while talking to her there is a small open lesion on the suture line of the previous BKA that was done in July 2019 there is a significant amount of swelling in the distal tibia at the stump anteriorly. Is tender to the touch and warm to the touch. It is fluctuant on palpation. She is not noticed any drainage from it. MD elicited complaint: abdominal pain Pertinent past history: constipation Onset (ago): day(s) Pain Consistency: intermittent Location: Diffuse Quality: cramping Radiation: none Migration to: no migration Exacerbating factors: eating Relieving factors: nothing Associated Symptoms: Reports constipation, GI cramping, dyspepsia, nausea, poor appetite and vomiting; Denies change in stool character, coffee ground emesis, diarrhea, dysuria, fever(s), hematochezia, hematuria, hematemesis and melena Related Data: Date of Last Menstrual Period: 07/24/18 Review of Systems Const: Denies: fever(s) ENMT: Denies: throat pain, ear or mastoid pain, nasal discharge or nasal congestion Card: Denies: chest pain, edema, dyspnea on exertion or orthopnea Resp: Denies: dyspnea, productive cough or non-productive cough GI: Reports: nausea, vomiting, constipation and GI cramping; Denies: hematemesis, coffee ground emesis, diarrhea, change in stool character, hematochezia or melena : Denies: dysuria or hematuria Skin/Breast: Denies: rash or pruritus PFS ED PFSH: Medical History CKD (chronic kidney disease) stage 2, GFR 60-89 ml/min -secondary to diabetic nephropathy -baseline Cr is around 1.0 -has FIONA superimposed on CKD likely due to dehydration; FIONA improving -continue to monitor renal function, avoid nephrotoxins, renally dose meds -off IVF hydration Coronary artery disease -hx of CAD s/p stenting -on ASA, Plavix; hold in case of surgery -not on statin Diabetes mellitus type 1 -noted hx of DM type I complicated by nephropathy and neuropathy -A1c-7.5 -Accuchecks, ISS, hypoglycemia precautions -hyperglycemia without DKA Diabetic gastroparesis -secondary to DM type I Hyperlipidemia Surgical History Below-knee amputation of left lower extremity H/O exploratory laparotomy x 3 Previous section x 3 S/P coronary artery stent placement x 1 S/P percutaneous endoscopic gastrostomy (PEG) tube placement Family History Unknown Diabetes extensive, type II Other CHF (congestive heart failure) Social History Smoking and tobacco status: former smoker Quit status (tobacco): has quit using tobacco Former quit date comment: 15 yrs ago Alcohol intake: former Former alcohol use details: 15 yrs ago Household members: spouse Marital status: Sexually active: Yes (1, ) Female Reproductive History: Date of last menstrual period: 07/24/18 Physical Exam Const: COMMON NORMALS: average body habitus, patient oriented x3 and alert GENERAL APPEARANCE: cooperative, comfortable, well kempt and well developed NUTRITIONAL APPEARANCE: obese ORIENTATION/CONSCIOUSNESS: Yes awake, Yes oriented to person and Yes oriented to place HENMT: COMMON NORMALS: normocephalic and atraumatic HEAD & SCALP: normocephalic and atraumatic Eye: COMMON NORMALS: Equal, round and reactive pupils present, EOMs intact bilaterally, conjunctivae normal and no scleral icterus CONJUNCTIVA: Yes conjunctivae normal PUPIL: Yes Equal, round and reactive pupils present Neck/C-Spine: COMMON NORMALS: full ROM, no lymphadenopathy, supple, no meningeal signs and Thyroid normal THYROID: Thyroid normal and asymmetrical Lymph: LYMPHATIC: no lymphadenopathy noted Resp: COMMON NORMALS: normal respiratory effort, No retractions, No use of accessory muscles and clear to auscultation bilaterally AUSCULTATION: clear to auscultation bilaterally Cardio: COMMON NORMALS: regular rate and regular rhythm RATE: regular rate RHYTHM: regular rhythm HEART SOUNDS: no murmurs GI: COMMON NORMALS: Normal to inspection, nondistended, normoactive bowel sounds present, Soft to palpation and No hepatosplenomegaly present PALPATION: Yes Soft to palpation and Yes No hepatosplenomegaly present : COMMON NORMALS: Yes no CVA tenderness BLADDER/KIDNEY EXAM: Yes no CVA tenderness Back/Pelvis: COMMON NORMALS: no CVA tenderness LUMBAR SPINE/LOWER BACK: Yes normal to inspection Extremity: NARRATIVE EXTREMITY EXAM: Stump with a BKA there is a fluctuant area that is exquisitely tender mildly reddened fluctuant and palpation.At the BKA stump there is an open lesion about 4 mm x 2 mm oval in shape in the center of this scar line. There is no active drainage from it it is mildly inflamed surrounding tender to the touch and warm at the anterior tibia Neuro: COMMON NORMALS: patient oriented x3 SENSORIUM/ORIENTATION: Yes alert, Yes oriented to person and Yes oriented to place MENINGEAL SIGNS: Yes no meningeal signs Psych: APPEARANCE: Yes well kempt Skin: COMMON NORMALS: no rashes or lesions noted and turgor normal GENERAL SKIN EXAM: no rashes or lesions noted and turgor normal Course Vital Signs: Vital signs: Vital Signs Temperature 98.3 F 03/08/20 10:16 Pulse Rate 74 03/08/20 13:30 Respiratory Rate 18 03/08/20 14:30 Blood Pressure 145/87 03/08/20 13:30 Pulse Oximetry 100 03/08/20 14:30 MDM - Abdominal Pain MDM Narrative: Medical decision making narrative: White count normal but CT with an abscess and possible osteomyelitis. We will go ahead and admit her started on IV antibiotics discussed with surgery as well they will look at doing incision and drainage possible bone biopsy hospitalist to admit Dr. Holley to consult. Lab Data: Labs: Lab Results 03/08/20 03/08/20 03/08/20 Range/Units 11:15 11:44 11:44 WBC 5.4 (4.0-10.0) 10^3/ uL RBC 3.77 L (4.1-5.3) 10^6/u L Hgb 10.5 L (11.5-15.3) g/dL Hct 33.8 L (37.0-47.0) % MCV 89.7 (81-99) fL MCH 27.9 L (28.0-34.0) pg MCHC 31.1 (30.0-36.0) g/dL RDW 14.0 (12.1-15.1) % Plt Count 323 (130-400) 10^3/c mm MPV 8.6 (7.4-10.4) fL Neut % (Auto) 67.7 % Lymph % (Auto) 19.6 % Mccreary % (Auto) 10.9 % Eos % (Auto) 0.7 % Baso % (Auto) 0.7 % Neut # (Auto) 3.65 (1.8-7.7) 10^3/u L Lymph # (Auto) 1.1 (0.8-4.8) 10^3/u L Mccreary # (Auto) 0.6 (0.2-0.9) 10^3/u L Eos # (Auto) 0.0 (0.0-0.8) 10^3/u L Baso # (Auto) 0.0 (0.0-0.1) 10^3/u L Nucleated RBC % (a uto) 0 % Nucleated RBCs # 0.0 /100WBC ESR 23 H (0-15) mm/hr Sodium 135 L (136-145) mmol/L Potassium 3.0 L (3.5-5.1) mmol/L Chloride 97 L (98-107) mmol/L Carbon Dioxide 28 (22-29) mmol/L Anion Gap 13.0 (5-19) BUN 19 (6-20) mg/dL Creatinine 1.1 H (0.5-0.9) mg/dL GFR Calculation 54.7 L (90-130) mL/min Glucose 183 H (65-115) mg/dL Calculated Osmolal ity 281 L (285-295) mOsm/k g Calcium 8.8 (8.5-10.5) mg/dL Total Bilirubin 0.4 (0.15-1.2) mg/dL AST 13 (0-32) U/L ALT 11 (0-33) U/L Alkaline Phosphata se 134 H (35-105) IU/L C-Reactive Protein 2.1 (0.0-4.9) mg/L Total Protein 7.9 (6.6-8.7) g/dL Albumin 4.2 (3.5-5.2) g/dL Globulin 3.7 (1.3-4.6) g/dL Lipase 31 (13-60) U/L Urine Color (Yellow) Urine Appearance (CLEAR) Urine pH (5-7) Ur Specific Gravit y (1.005-1.030) Urine Protein (Negative) Urine Glucose (UA) (Normal) Urine Ketones (Negative) Urine Blood (Negative) Urine Nitrate (Negative) Urine Bilirubin (NEGATIVE) Urine Urobilinogen (Negative) mg/dL Ur Leukocyte Estephania ase (Negative) Urine RBC (0-2) /hpf Urine WBC (0-5) /hpf Ur Squamous Epith Cells (0-5) Amorphous Sediment Urine Bacteria (NONE) 03/08/20 Range/Units 12:20 WBC (4.0-10.0) 10^3/ uL RBC (4.1-5.3) 10^6/u L Hgb (11.5-15.3) g/dL Hct (37.0-47.0) % MCV (81-99) fL MCH (28.0-34.0) pg MCHC (30.0-36.0) g/dL RDW (12.1-15.1) % Plt Count (130-400) 10^3/c mm MPV (7.4-10.4) fL Neut % (Auto) % Lymph % (Auto) % Mccreary % (Auto) % Eos % (Auto) % Baso % (Auto) % Neut # (Auto) (1.8-7.7) 10^3/u L Lymph # (Auto) (0.8-4.8) 10^3/u L Mccreary # (Auto) (0.2-0.9) 10^3/u L Eos # (Auto) (0.0-0.8) 10^3/u L Baso # (Auto) (0.0-0.1) 10^3/u L Nucleated RBC % (a uto) % Nucleated RBCs # /100WBC ESR (0-15) mm/hr Sodium (136-145) mmol/L Potassium (3.5-5.1) mmol/L Chloride (98-107) mmol/L Carbon Dioxide (22-29) mmol/L Anion Gap (5-19) BUN (6-20) mg/dL Creatinine (0.5-0.9) mg/dL GFR Calculation (90-130) mL/min Glucose (65-115) mg/dL Calculated Osmolal ity (285-295) mOsm/k g Calcium (8.5-10.5) mg/dL Total Bilirubin (0.15-1.2) mg/dL AST (0-32) U/L ALT (0-33) U/L Alkaline Phosphata se (35-105) IU/L C-Reactive Protein (0.0-4.9) mg/L Total Protein (6.6-8.7) g/dL Albumin (3.5-5.2) g/dL Globulin (1.3-4.6) g/dL Lipase (13-60) U/L Urine Color Yellow (Yellow) Urine Appearance Clear (CLEAR) Urine pH 7 (5-7) Ur Specific Gravit y 1.005 (1.005-1.030) Urine Protein 1+ H (Negative) Urine Glucose (UA) Norm (Normal) Urine Ketones Negative (Negative) Urine Blood Neg (Negative) Urine Nitrate Negative (Negative) Urine Bilirubin Neg (NEGATIVE) Urine Urobilinogen Neg (Negative) mg/dL Ur Leukocyte Estephania ase Negative (Negative) Urine RBC 0-4 H (0-2) /hpf Urine WBC 0-4 H (0-5) /hpf Ur Squamous Epith Cells 5-10 H (0-5) Amorphous Sediment Not Reportable Urine Bacteria 1+ H (NONE) Discharge Plan Discharge Patient Disposition: Admitted As Inpatient Admit Provider: Lamar Suarez Clinical Impression: Cellulitis and abscess of leg, Constipation, Type 1 diabetes mellitus, Hypokalemia Condition: Stable Interventions: ED Charges Last Done: 03/08/20 12:12 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 Code ED Instrument And Electrical Technician for Kim Mitchell
--- NOTE | 2020-03-08 10:37 | CT_ITS ---
WS: [id number] CT ABDOMEN AND PELVIS WITH CONTRAST HISTORY: abd pain, diffuse abdominal pain. TECHNIQUE: Imaging performed of the abdomen and pelvis with IV contrast. Single phase imaging of the abdomen. Coronal and sagittal reformats are submitted. All CT scans at [facility] use at least one of these dose optimization techniques: automated exposure control; mA and/or kV adjustment per patient size (includes targeted exams where dose is matched to clinical indication); or iterativ e reconstruction. IV CONTRAST: Omnipaque 300; 95 mL IV. Oral contrast: No DLP: 611.21 mGy.cm COMPARISON: 03/05/2020 Lower thorax: Lung bases are clear. Heart is normal size. No hiatal hernia. Liver/biliary system: Normal size liver. Very mild central duct dilatation is similar to prior studie s. Gallbladder: Prior cholecystectomy. Pancreas: Normal. Spleen: Normal. Adrenal glands: Normal. Right kidney: Normal. Left kidney: Normal. Aorta: Mild atherosclerosis aorta. Lymphadenopathy: None. Free fluid: None. GI tract: Moderate fecal retention in the RIGHT colon. The cecum is low-lying and extends into the RI GHT adnexa. The appendix is partially visualized and normal. The portion of the appendix visualized c ontains air. A few scattered diverticula. Abdominal wall: Foreign body metallic defect in the supraumbilical abdominal wall is been present on multiple prior examinations. Pelvis: Moderately distended urinary bladder. Uterus is anteverted. No free fluid or adenopathy. Smal l stable inguinal lymph nodes. Bones: Unremarkable. Notified Adama Ceballos DO at 03/08/2020 12:[address]/CT abdomen pelvis w con* [id number] IMPRESSION: 1. Increased fluid and fecal material in the RIGHT colon. Cecum is deep within the pelvis. 2. The appendix is only partially visualized but does appear normal. 3. Prior cholecystectomy.
--- NOTE | 2020-03-08 10:37 | CT_ITS ---
WS: [id number] CT LEFT FEMUR with contrast CT proximal tibia and fibula with contrast HISTORY: previous amputation, fluid collection/swelling w open wound Technique: All CT scans at [facility] use at least one of these dose optimization techniq ues: automated exposure control; mA and/or kV adjustment per patient size (includes targeted exams wh ere dose is matched to clinical indication); or iterative reconstruction. DLP: 1652.14 mGy.cm Contrast: Omnipaque 395 cc IV. COMPARISON: None available. Multiple loculated fluid collections with enhancing estrada at the amputation site of the proximal tibi a. Largest collection at the amputation site measures 2.8 x 2.7 cm. There are smaller additional locu lated components predominantly along the medial amputation site. There is significant soft tissue hyp eremia with enhancement and edema. Loss of the normal bony cortex and osteopenia. Surface of the bone is irregular therefore osteomyelitis cannot be excluded. There is additional disuse osteopenia invol ving the remaining tibia. No additional fluid collections or soft tissues abnormalities along the LEFT femur. There is extensiv e arterial calcifications. No significant suprapatellar effusion. No enhancement at the knee joint. CT/CT lower leg LT w con [id number] IMPRESSION: 1. Loculated fluid collections with enhancing estrada surrounding the amputation site of the proximal tibia consistent with abscesses. The largest collection m easures 2.8 x 2.7 cm. There are additional smaller collections. 2. Extensive cellulitis surrounding the distal tibial site. 3. Change in the normal trabecular pattern of the distal tibia may be related to osteomyelitis or diffuse osteopenia.
[2020-03-08] MEDS: iohexol 300 mg/mL 100 mL Btl IV ×2 (11:14→11:15)
[2020-03-08 11:59] LABS: Basophils % 0.7 %; Eosinophils % 0.7 %; Hematocrit 33.8 % (37.0-47.0); Hemoglobin 10.5 g/dL (11.5-15.3); Lymphocytes # 1.1 10^3/uL (0.8-4.8); Lymphocytes % 19.6 %; Mean Corpuscular HGB Conc 31.1 g/dL (30.0-36.0); Mean Corpuscular Hemoglobin 27.9 pg (28.0-34.0); Mean Corpuscular Volume 89.7 fL (81-99); Mean Platelet Volume 8.6 fL (7.4-10.4); Monocytes # 0.6 10^3/uL (0.2-0.9); Monocytes % 10.9 %; Neutrophils # 3.65 10^3/uL (1.8-7.7); Neutrophils % 67.7 %; Nucleated Red Blood Cells % 0 %; Platelet Count 323 10^3/cmm (130-400); Red Blood Count 3.77 10^6/uL (4.1-5.3); White Blood Count 5.4 10^3/uL (4.0-10.0)
[2020-03-08] MEDS: sodium chloride 0.9% 1,000 ML 125 ML IV (12:23)
[2020-03-08 12:38] LABS: Alanine Aminotransferase 11 U/L (0-33); Albumin Level 4.2 g/dL (3.5-5.2); Alkaline Phosphatase 134 IU/L (35-105); Aspartate Amino Transferase 13 U/L (0-32); Blood Urea Nitrogen 19 mg/dL (6-20); C Reactive Protein 2.1 mg/L (0.0-4.9); Calcium 8.8 mg/dL (8.5-10.5); Carbon Dioxide 28 mmol/L (22-29); Chloride 97 mmol/L (98-107); Globulin 3.7 g/dL (1.3-4.6); Glomerular Filtration Rate 54.7 mL/min (90-130); Glucose 183 mg/dL (65-115); Lipase 31 U/L (13-60); Osmolality Calculated 281 mOsm/kg (285-295); Sodium 135 mmol/L (136-145); Total Bilirubin 0.4 mg/dL (0.15-1.2); Total Protein 7.9 g/dL (6.6-8.7)
[2020-03-08] MEDS: levofloxacin-dextrose 5 % 750 MG/150 ML PREMIX 100 MG IV (12:45)
[2020-03-08 13:03] LABS: Add Urine Culture? No; Add Urine Microscopic? YES; Bacteria Urine 1+; Bilirubin Urine Neg (NEGATIVE); Blood Urine Neg (Negative); Glucose Urine UA Norm (Normal); Ketones Urine Negative (Negative); Leukocyte Esterase Urine Negative (Negative); Nitrate Urine Negative (Negative); Protein Urine 1+ (Negative); RBC Urine 0-4 /hpf (0-2); Specific Gravity, Urine 1.005 (1.005-1.030); Urine Appearance Clear (CLEAR); Urine Color Yellow (Yellow); Urobilinogen Urine Neg (Negative); WBC Urine 0-4 /hpf (0-5); pH Urine 7 (5-7)
[2020-03-08 13:07] LABS: Erythrocyte Sedimentation Rate 23 mm/hr (0-15)
[2020-03-08] MEDS: vancomycin 1,000 MG in sodium chloride 0.9% 250 ML 250 MG IV (14:00)
--- NOTE | 2020-03-08 14:00 | P.CONIM_ITS ---
Providers/Reason For Consult Consulting Physican/Specialty*: Dave Holley MD Reason for Consult*: Left Below knee amputation stump fluid collection concerning for an abscess Requesting Physcian: Dr Ceballos Attending Physician: Dr Suarez History of Present Illness History of Present Illness Chief Complaint: Abdominal pain History of present illness: Ms Cherrie Steel is a 39 year old female with History of DM type I,patient has been self monitroing per her description, patient gives history of below the knee amputation of the left lower extremity back in July 2019 in [place]. Patient is well-known with her complicated diabetes mellitus and undergone an amputation of the right second toe by recently, patient presents to the emergency department because of worsening abdominal pain she had previous exploratory laparotomy and gynecological procedures and a CT scan of the abdomen and pelvis was obtained and showed: CT scan of the abdomen and pelvis showed: 1. Increased fluid and fecal material in the RIGHT colon. Cecum is deep within the pelvis. 2. The appendix is only partially visualized but does appear normal. 3. Prior cholecystectomy. Patient reports that she is passing gas and having bowel movements on daily basis. On further evaluation the emergency department was found to have a scab on the stump of the left below the knee amputation site and undergone consequently a CT scan of the left lower extremity showed MPRESSION: 1. Loculated fluid collections with enhancing estrada surrounding the amputation site of the proximal tibia consistent with abscesses. The largest collection measures 2.8 x 2.7 cm. There are additional smaller collections. 2. Extensive cellulitis surrounding the distal tibial site. 3. Change in the normal trabecular pattern of the distal tibia may be related to osteomyelitis or diffuse osteopenia. General surgery was consulted for further evaluation potential intervention with regard to her complicated below-knee amputation stump site concern for an abscess formation. Review of Systems General: Reports: 10 or more systems reviewed and unremarkable except in HPI and below Meds/Allergies Home Medications and Allergies Home Medications Medication Instructions Recorded Confirmed Last Taken Type Lantus Solostar U-100 Insulin 5 unit SUBCUT BEDTIME 01/13/20 03/08/20 02/09/20 History aspirin [Aspir-81] 81 mg PO DAILY 01/13/20 03/08/20 02/10/20 History carvedilol 3.125 mg PO Q12H 01/13/20 03/08/20 02/10/20 History clopidogrel [Plavix] 75 mg PO DAILY 01/13/20 03/08/20 02/10/20 History insulin lispro [Humalog U-100 See Rx Instructions .ROUTE .COMPLEX 01/13/20 03/08/20 02/01/20 History Insulin] lisinopril 2.5 mg PO DAILY 01/13/20 03/08/20 02/10/20 History gabapentin 300 mg PO QID 02/11/20 03/08/20 02/10/20 08:00 History ferrous sulfate 325 mg PO BIDWM #60 tab 02/16/20 03/08/20 Unknown Rx metoclopramide HCl [Reglan] 10 mg PO QID 7 Days #28 tab 03/03/20 03/08/20 Unknown Rx buspirone 10 mg PO BID 03/08/20 03/08/20 Unknown History ondansetron 4 mg PO Q8H PRN 03/08/20 03/08/20 Unknown History sucralfate [Carafate] 1 g PO TID 03/08/20 03/08/20 Unknown History Allergies Allergy/AdvReac Type Severity Reaction Status Date / Time morphine Allergy ALGY-Difficulty Verified 03/08/20 16:20 Breathing Current Medications Current Medications Generic Name Dose Route Start Last Admin Trade Name Freq PRN Reason Stop Dose Admin Sodium Chloride 1,000 mls @ 125 mls/hr 03/08/20 10:26 03/08/20 12:23 Sodium Chloride 0.9% IV 03/08/20 18:25 125 mls/hr .Q8H ONE Administration PFSH Acute PFSH: Medical History CKD (chronic kidney disease) stage 2, GFR 60-89 ml/min -secondary to diabetic nephropathy -baseline Cr is around 1.0 Coronary artery disease -hx of CAD s/p stenting Diabetes mellitus type 1 Diabetic gastroparesis -secondary to DM type I Foot osteomyelitis, right Hyperlipidemia Surgical History Below-knee amputation of left lower extremity H/O exploratory laparotomy x 3 History of amputation of right forefoot Previous section x 3 S/P coronary artery stent placement x 1 S/P percutaneous endoscopic gastrostomy (PEG) tube placement Family History Unknown Diabetes extensive, type II Other CHF (congestive heart failure) Social History Smoking and tobacco status: former smoker Quit status (tobacco): has quit using tobacco Former quit date comment: 15 yrs ago Alcohol intake: former Former alcohol use details: 15 yrs ago Household members: spouse Marital status: Sexually active: Yes (1, ) Female Reproductive History: Date of last menstrual period: 07/24/18 Vitals/I&O/Wt Last Vital Signs Temp 98.3 F 03/08/20 10:16 Pulse 74 03/08/20 13:30 Resp 16 03/08/20 13:30 BP 145/87 03/08/20 13:30 Pulse Ox 99 03/08/20 13:30 Weight last 48 hrs Weight 140 lb Physical Exam Narrative: EXAM NARRATIVE: Patient is conscious alert oriented X3 BMI 20 Head and neck examination PERRLA no masses no cervical lymphadenopathy no jaundice Cardiac examination audible S1-S2 no murmurs no gallops no arrhythmias Chest is clear bilateral,abscence of Rhonchi or wheezes,no surgical emphysema Abdomen nontender nondistended soft no organomegaly guarding or rigidity/no signs of peritonitis,midline abdominal wall scars Below knee amputation stump shows mild to moderate tenderness particularly on the posterior aspect with minimal skin changes, dry scab less than a centimeter located towards the lateral aspect of the previous scar without obvious opening or discharge. Palpable left popliteal artery Right lower extremity shows amputation of right second toe with Prolene sutures in place without complication Data Micro: Micro: Microbiology 03/08/20 11:40 Blood Culture - Pr eliminary Blood SPECIMEN [facility] 03/08/20 11:44 Blood Culture - Pr eliminary Blood SPECIMEN [facility] A&P Assessment and plan (1) Fluid collection at surgical site: After history taking physical examination and reviewing the chart and personal interpretation of the CT scan images and reviewing the images with Dr. Escobar I thought it would be more valid to obtain an MRI of the left lower extremity to assess for potential involvement of the bone and to assess better the soft tissue fluid collection. We will plan to reevaluate the patient for potential I&D if indicated Recommend to have the patient n.p.o. after midnight potential surgical intervention tomorrow Assurance and education All questions have been answered and all concerns have been addressed to patient's satisfaction. Status: Acute Consult Attestations Medical Necessity Statement: Per hospitalist service Time Spent in Patient Care: (>than 50% of time spent in counselling and/or direct pt care on unit) . 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 Code Acute Petroleum Supply Specialist for Chg Fwd Diagnoses Fluid collection at surgical site T88.8XXA
[2020-03-08] MEDS: fentaNYL 50 mcg/mL INJ 2mL 25 MCG IVP (14:30)
--- NOTE | 2020-03-08 14:41 | P.HP_ITS ---
Providers/Chief Complaint Admitting Physician: Lamar Suarez MD Primary Care Provider: Kentrell Herring MD Chief Complaint: ABDOMINAL PAIN History of Present Illness Cherrie Steel is a 39 year old female with PMHx of DM type I associated with nephropathy, gastroparesis and neuropathy, s/p L BKA, HTN, CAD s/p stenting; presents from home for evaluation of ongoing significant right lower quadrant abdominal pain, nausea/vomiting for the past several days. She is very well- known to me from admission earlier this year during which time she presented with similar symptoms as well as right diabetic foot ulcer that required wound excision and second toe amputation. She has been seen monthly at our facility for similar symptoms and has had a right third toe amputation as well secondary to osteomyelitis. She recently completed a course of antibiotics, recalls being on Levaquin. Has been following up with Dr. Soto and was seen on 02/28 with partial suture removal from wound following third right toe amputation. She has been weight bearing as tolerated. She has had prior work-up for abdominal pain with no clear etiology identified. Manage symptomatically primarily with Reglan secondary to gastroparesis. She denies any fever/chills, changes to her urinary habits. States that she has had a bowel movement every other day with the last one being yesterday. Has been unable to keep anything down including trial of a blueberry muffin earlier this morning for breakfast. She reports been compliant with her insulin regimen with last A1c being 7.5 blood sugars at home being less than 200. Vital signs are currently stable and she is receiving a dose of vancomycin and Levaquin. Work-up so far has revealed a normal white count at 5.4, hemoglobin of 10.5, potassium of 3.0, BUN of 19 with a creatinine of 1.1, blood glucose of 183, ALP of 134 with otherwise normal LFTs, urinalysis showing proteinuria and some bacteriuria. CRP is normal, ESR is 23. She has had a CT of the abdomen and pelvis showing fecal retention. CT of the left lower extremity was done secondary to noted open area along BKA amputation site with report of multiple abscesses and possible osteomyelitis. Dr. Holley has been consulted and recommends MRI for further definitive diagnosis of osteomyelitis. Patient has been admitted for further IV antibiotics and work-up. She is requesting additional pain medication. Review of Systems Const: Reports: change in appetite (decreased appetite) and fatigue; Denies: fever(s) or chills Eyes: Denies: change in vision ENMT: Reports: dry mouth Card: Denies: chest pain, swelling of feet/ankles or lightheadedness Resp: Denies: dyspnea, productive cough or non-productive cough GI: Reports: abdominal pain (RLQ), nausea and vomiting; Denies: hematemesis, diarrhea or hematochezia : Denies: difficulty voiding, dysuria, urinary frequency or hematuria Musc: Denies: back pain Skin/Breast: Denies: rash Neuro: Denies: numbness in extremities, weakness in extremities or frequent falls Psych: Denies: anxiety Medications/Allergies Home Medications Medication Instructions Recorded Confirmed Last Taken Type Lantus Solostar U-100 Insulin 5 unit SUBCUT BEDTIME 01/13/20 03/08/20 02/09/20 History aspirin [Aspir-81] 81 mg PO DAILY 01/13/20 03/08/20 02/10/20 History carvedilol 3.125 mg PO Q12H 01/13/20 03/08/20 02/10/20 History clopidogrel [Plavix] 75 mg PO DAILY 01/13/20 03/08/20 02/10/20 History insulin lispro [Humalog U-100 See Rx Instructions .ROUTE .COMPLEX 01/13/20 03/08/20 02/01/20 History Insulin] lisinopril 2.5 mg PO DAILY 01/13/20 03/08/20 02/10/20 History gabapentin 300 mg PO QID 02/11/20 03/08/20 02/10/20 08:00 History ferrous sulfate 325 mg PO BIDWM #60 tab 02/16/20 03/08/20 Unknown Rx metoclopramide HCl [Reglan] 10 mg PO QID 7 Days #28 tab 03/03/20 03/08/20 Unknown Rx buspirone 10 mg PO BID 03/08/20 03/08/20 Unknown History ondansetron 4 mg PO Q8H PRN 03/08/20 03/08/20 Unknown History sucralfate [Carafate] 1 g PO TID 03/08/20 03/08/20 Unknown History Allergies Allergy/AdvReac Type Severity Reaction Status Date / Time morphine Allergy ALGY-Difficulty Verified 03/05/20 11:09 Breathing PFSH Acute PFSH: Medical History (Updated 03/08/20 @ 15:08 by Lamar Suarez MD) CKD (chronic kidney disease) stage 2, GFR 60-89 ml/min -secondary to diabetic nephropathy -baseline Cr is around 1.0 Coronary artery disease -hx of CAD s/p stenting Diabetes mellitus type 1 Diabetic gastroparesis -secondary to DM type I Foot osteomyelitis, right Hyperlipidemia Surgical History (Updated 03/08/20 @ 15:01 by Lamar Suarez MD) Below-knee amputation of left lower extremity H/O exploratory laparotomy x 3 History of amputation of right forefoot Previous section x 3 S/P coronary artery stent placement x 1 S/P percutaneous endoscopic gastrostomy (PEG) tube placement Family History Unknown Diabetes extensive, type II Other CHF (congestive heart failure) Social History Smoking and tobacco status: former smoker Quit status (tobacco): has quit using tobacco Former quit date comment: 15 yrs ago Alcohol intake: former Former alcohol use details: 15 yrs ago Household members: spouse Marital status: Sexually active: Yes (1, ) Female Reproductive History: Date of last menstrual period: 07/24/18 Vitals/I&O/Wt Last Vital Signs Temp 98.3 F 03/08/20 10:16 Pulse 74 03/08/20 13:30 Resp 18 03/08/20 14:30 BP 145/87 03/08/20 13:30 Pulse Ox 100 03/08/20 14:30 Weight last 48 hrs Weight 63.503 kg Physical Exam Const: COMMON NORMALS: no acute distress and patient oriented x3 GENERAL APPEARANCE: cooperative and comfortable ORIENTATION/CONSCIOUSNESS: Yes awake HENMT: COMMON NORMALS: normocephalic, atraumatic, hearing grossly normal bilaterally and moist oral mucous membranes HEAD & SCALP: normocephalic and atraumatic Eye: COMMON NORMALS: Equal, round and reactive pupils present, EOMs intact bilaterally and conjunctivae normal CONJUNCTIVA: Yes conjunctivae normal PUPIL: Yes Equal, round and reactive pupils present Neck/C-Spine: COMMON NORMALS: full ROM GENERAL: Yes normal visual inspection and Yes trachea midline Resp: COMMON NORMALS: normal respiratory effort, No retractions, No use of accessory muscles and clear to auscultation bilaterally EFFORT & INSPECTION: Yes able to speak in complete sentences, Yes symmetric chest movement and No tac hypneic AUSCULTATION: clear to auscultation bilaterally Cardio: COMMON NORMALS: regular rate, regular rhythm, S1 normal heart sound present, S2 normal heart sound present and No murmurs present (Cardio) RATE: regular rate RHYTHM: regular rhythm HEART SOUNDS: S1 normal heart sound present and S2 normal heart sound present GI: COMMON NORMALS: Normal to inspection, nondistended, normoactive bowel sounds present, Soft to palpation and non-tender PALPATION: Yes Soft to palpation Extremity: COMMON NORMALS: normal to inspection, full ROM and no clubbing, cyanosis or edema; negative for no pedal edema Neuro: COMMON NORMALS: patient oriented x3, moves all extremities, no focal motor deficits and no sensory deficits noted Psych: COMMON NORMALS: mental status grossly normal, Normal thought process present, cooperative and speech normal SPEECH: Yes normal speech MOOD & AFFECT: Yes Flat affect present THOUGHT PROCESS: Normal thought process present Skin: COMMON NORMALS: no rashes or lesions noted, no jaundice, no petechiae and no mottling NARRATIVE SKIN EXAM: -small discrete open area along L BKA stump site, no active drainage, some tenderness to palpation and warmth to touch. -s/p 3rd R toe amputation, some sutures in place -s/p prior amputation of R great toe GENERAL SKIN EXAM: no rashes or lesions noted Data : 03/08/20 11:15 03/08/20 11:44 Micro: Microbiology 03/08/20 11:40 Blood Culture - Preliminary Blood SPECIMEN COLLECTED 03/08/20 11:44 Blood Culture - Preliminary Blood SPECIMEN COLLECTED A&P Assessment and plan (1) Abdominal pain: -Seems to be recurrent and chronic issue, multiple hospital visits and admissions for similar symptoms -Noted fecal retention on imaging -Bowel regimen -Pain control and antiemetics as needed -Suspected to have gastroparesis secondary to underlying diabetes; resume Reglan -Resume Carafate Status: Acute Qualifiers: Abdominal location: right lower quadrant Qualified Code(s): R10.31 - Right lower quadrant pain (2) Cellulitis and abscess of leg: -Noted to have open area along amputation site (L BKA), no active drainage -Imaging shows suspicious findings for abscesses and osteomyelitis -Received dose of vancomycin and Levaquin in ER, for now we will continue Zosyn and vancomycin, has prior history of MRSA -MRI ordered for more definitive diagnosis of osteomyelitis -Surgery consult requested in case of need for drainage or debridement; case discussed briefly with Dr. Holley -no leukocytosis, noted ESR-23, CRP-2.1 -IVF hydration Status: Acute (3) Diabetes mellitus type 1: -noted hx of DM type I complicated by nephropathy and neuropathy -A1c-7.5 (12/2019) -Accu-Cheks, scheduled and ISS, hypoglycemia precautions Status: Inactive Qualifiers: Diabetes mellitus complication status: with other specified complication Qualified Code(s): E10.69 - Type 1 diabetes mellitus with other specified complication (4) Constipation: -Noted on imaging -Bowel regimen Status: Acute Qualifiers: Constipation type: unspecified constipation type Qualified Code(s): K59.00 - Constipation, unspecified (5) Hypokalemia: -Noted to have mild hypokalemia with potassium of 3.0 -Currently being replaced IV -Continue to monitor and replace as needed Status: Acute Additional A&P Information -hx of CAD s/p stenting; hold ASA, Plavix in case of need for procedure -CKD stage 2 secondary to diabetic nephropathy, baseline Cr around 1.0, monitor renal function particularly with contrast studies and use of Zosyn and vancomycin; avoid nephrotoxins, renally dose meds, IVF hydration -s/p LLE BKA -Dyslipidemia; has not been on statin -Chronic anemia; hold iron supplementation due to constipation -HTN; VSS currently, hold low dose ACEi due to concern for possible nephrotoxicity with contrast studies -GI ppx with PPI -DVT ppx with heparin -Dispo: home -Code status: FULL code Attestations Medical Necessity Statement*: Cherrie Solomon's hospital stay will require greater than 2 midnights for management of abdominal pain, constipation, cellulitis and possible osteomyelitis of left lower extremity requiring IV antib iotics. Time Spent in Patient Care: Greater than 35 minutes (>than 50% of time spent in counselling and/or direct pt care on unit) . 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 Code Acute Treating Plant Supervisor for Chg Fwd Diagnoses Abdominal pain R10.31 Abdominal location: right lower quadrant Cellulitis and abscess of leg L03.119; L02.419 Diabetes mellitus type 1 E10.69 Diabetes mellitus complication status: with other specified complication Constipation K59.00 Constipation type: unspecified constipation type Hypokalemia E87.6
[2020-03-08] MEDS: potassium chloride premix 40 MEQ/100 ML PREMIX 25 MEQ IV (15:05)
[2020-03-08 16:35] LABS: Glucose Point of Care 106 mg/dL (70-110)
[2020-03-08] MEDS: sucralfate 1 gm Tablet PO ×2 (16:51→21:29)
[2020-03-08] MEDS: carvedilol 3.125 mg Tablet PO (16:51)
[2020-03-08] MEDS: sodium chloride 0.9% 1,000 ML 100 ML IV (16:51)
[2020-03-08] MEDS: BuSPIRONE 10 mg Tablet PO (16:51)
[2020-03-08] MEDS: gabapentin 300 mg Capsule PO ×2 (16:51→21:29)
[2020-03-08] MEDS: heparin 5,000 unit/mL INJ 1 mL 5000 UNIT SUBCUT (16:52)
[2020-03-08] MEDS: metoclopramide 10 mg Tablet PO ×2 (16:52→21:29)
[2020-03-08] MEDS: sennosides-docusate Tablet 2 TAB PO (16:52)
[2020-03-08] MEDS: lactobacillus 1 Tablet 1 TAB PO (16:52)
[2020-03-08] MEDS: polyethylene glycol 3350 Pkt 17 gm PO (16:59)
[2020-03-08] MEDS: piperacillin-tazobactam 3.375 GM in sodium chloride 0.9% (plus) 50 ML IV (19:50)
--- NOTE | 2020-03-08 20:09 | PC.NURSE ---
Pt stated I cant handle that thing on my leg.
[2020-03-08 21:04] LABS: Glucose Point of Care 170 mg/dL (70-110)
[2020-03-08] MEDS: insulin glargine 100 units/1 mL 5 UNIT SUBCUT (21:29)
[2020-03-08 21:58] LABS: HCG Qualitative Urine. Negative (Negative)
[2020-03-09] VITALS (11 sets, daily range): BP systolic 88–190; BP diastolic 59–99; PULSE 66–102; RESP 14–24; TEMP 36.6–37.3; O2SAT 94–100
[2020-03-09] MEDS: sodium chloride 0.9% 1,000 ML 100 ML IV ×2 (00:41→07:51)
[2020-03-09 03:14] LABS: Basophils # 0.1 10^3/uL (0.0-0.1); Basophils % 0.8 %; Eosinophils # 0.2 10^3/uL (0.0-0.8); Eosinophils % 3.4 %; Hematocrit 29.1 % (37.0-47.0); Hemoglobin 9.1 g/dL (11.5-15.3); Lymphocytes # 1.8 10^3/uL (0.8-4.8); Lymphocytes % 29.5 %; Mean Corpuscular HGB Conc 31.3 g/dL (30.0-36.0); Mean Corpuscular Hemoglobin 28.8 pg (28.0-34.0); Mean Corpuscular Volume 92.1 fL (81-99); Mean Platelet Volume 9.8 fL (7.4-10.4); Monocytes # 0.7 10^3/uL (0.2-0.9); Monocytes % 11.2 %; Neutrophils # 3.37 10^3/uL (1.8-7.7); Neutrophils % 54.9 %; Nucleated Red Blood Cells % 0 %; Platelet Count 142 10^3/cmm (130-400); Red Blood Count 3.16 10^6/uL (4.1-5.3); White Blood Count 6.1 10^3/uL (4.0-10.0)
[2020-03-09 03:29] LABS: Alanine Aminotransferase 9 U/L (0-33); Albumin Level 3.2 g/dL (3.5-5.2); Alkaline Phosphatase 101 IU/L (35-105); Blood Urea Nitrogen 16 mg/dL (6-20); Calcium 8.5 mg/dL (8.5-10.5); Carbon Dioxide 22 mmol/L (22-29); Chloride 105 mmol/L (98-107); Globulin 2.7 g/dL (1.3-4.6); Glucose 104 mg/dL (65-115); Osmolality Calculated 281 mOsm/kg (285-295); Sodium 137 mmol/L (136-145); Total Bilirubin 0.2 mg/dL (0.15-1.2); Total Protein 5.9 g/dL (6.6-8.7)
[2020-03-09 03:30] LABS: Anion Gap 13.8 (5-19); Aspartate Amino Transferase 13 U/L (0-32); Potassium 3.8 mmol/L (3.5-5.1)
[2020-03-09 03:36] LABS: Slide Review Slide Review Perform
[2020-03-09] MEDS: carvedilol 3.125 mg Tablet PO ×2 (03:54→17:12)
[2020-03-09] MEDS: vancomycin 750 MG in sodium chloride 0.9% 250 ML 250 MG IV ×2 (03:54→17:11)
[2020-03-09] MEDS: heparin 5,000 unit/mL INJ 1 mL 5000 UNIT SUBCUT (03:54)
[2020-03-09] MEDS: piperacillin-tazobactam 3.375 GM in sodium chloride 0.9% (plus) 50 ML IV ×3 (05:16→20:19)
--- NOTE | 2020-03-09 06:39 | PC.NURSE ---
Tele This personal lines underwriter attempted to get the tele to work. The box was changed, leads was removed and re-attached and the leads was changed with no success. Pt is resting in bed with eyes closed, breathing is even and unlabored.
[2020-03-09 06:41] LABS: Glucose Point of Care 113 mg/dL (70-110)
[2020-03-09] MEDS: BuSPIRONE 10 mg Tablet PO (07:34)
[2020-03-09] MEDS: lactobacillus 1 Tablet 1 TAB PO (07:35)
[2020-03-09] MEDS: gabapentin 300 mg Capsule PO ×2 (07:35→14:05)
[2020-03-09] MEDS: sucralfate 1 gm Tablet PO (07:35)
[2020-03-09] MEDS: metoclopramide 10 mg Tablet PO ×2 (07:35→14:05)
[2020-03-09] MEDS: ondansetron 2 mg/ML SDV 2 mL 4 MG IVP ×3 (09:36→20:28)
--- NOTE | 2020-03-09 11:08 | PC.CHAP ---
Pastoral Care Encounter/Spiritual Assessment Type of Contact [] Declined balling machine operator visit [] Patient/Family/Request visit [] Outpatient visit [] Follow-up visit [] Physician referral [] Code/Alert [x] Routine visit [] Staff referral [] Actively dying [] Patient sleeping [] Family support [] [x] Out of room [] Palliative care [] [] Receiving care in room [] Pre-surgical visit [] Trauma [] Long length of stay [] ICU visit [x] Other: MRI Relational/Emotional Strength [] Patient feels connected with others/family/visitors/staff [] Distress [] Loneliness/isolation [] Abandonment Spirituality of Patient [] Person of Vanessa [] Attends Caodaism of their Vanessa [] Believes in Prayer [] Reads Bible or Quaker materials [] There are Spiritual issues to be addressed Hypoid Gear Generator Interventions [] Prayer [] Active listening [] Non-anxious presence [] Spiritual/emotional support [] Crisis/trauma care [] Spiritual counseling [] Bereavement support [] Provided bereavement packet [] Provided Bible/devotional materials [] Provided toy/stuffed animal, coloring book to patient or family member [] Provided Communion [] Anointing/Hillister [] Salvation [x] Completed spiritual assessment [] Other: Impact on Illness or Injury [] Angry [] Fearful [] Anxious [] Often cries [] Exhaustion [] Unable to work [] Unable to attend alevism [] Unable to walk/stand [] Unable to read [] Unable to drive [] Unable to eat/drink [] Unable to sleep [] Unable to be with family [] Patient intubated [] Other: Summary Time spent with patient
--- NOTE | 2020-03-09 11:14 | PC.NURSE ---
PATIENT IN HALLWAY AMBULATING WITH WALKER CRYING IN PAIN REQUESTING MORE PAIN MEDS AND ASKING FOR ANTI -NAUSEA MEDICATION. I EXPRESSED THAT SHE HAD NOTHING TO GIVE THE TIME BETWEEN DOSES WAS TO EARLY. PATIENT STATES SHE HAS TO HAVE SOMETHING. NOTIFIED DR. HUBERT HARTLEY AND SHE CALLED CHARGE NURSE TO STATE NO NEW ORDERS. JERMAINE, PARKING METER INSTALLER
--- NOTE | 2020-03-09 11:20 | PC.NURSE ---
The patient refused vital signs at this time. says she is in too much pain. she is now in shower #2 for today.
[2020-03-09 11:32] LABS: Glucose Point of Care 127 mg/dL (70-110)
--- NOTE | 2020-03-09 12:15 | PC.NURSE ---
Patient at nurses station states she needs pain medication. Explained to patient that Per Dr. Suarez staff cannot give any pain medications due to allergies listed and time frame of last dose of given pain med. Patient encouraged to go back to room and staff offered warm towels to help with the ABD pain. She has unhooked self from IV fluids and refuses gabapentin and or Reglan stating she is unable to swallow the pills due to dry heaving. Patient hooked back up to IV and given next scheduled dose of abx. Physician notified of patients request. No new orders. Patient reluctant to accept teaching from staff on ambulation and wound management. JERMAINE, FRED
--- NOTE | 2020-03-09 12:40 | P.PN_ITS ---
Subjective Subjective: Interval history: MRI is not done yet,. Patient complains of pain all over her body particularly the right side of her abdomen and left below-knee amputation stump site Vitals/I&O/Wt Last Vital Signs Temp 98.3 F 03/09/20 07:29 Pulse 76 03/09/20 07:29 Resp 18 03/09/20 11:20 BP 152/81 03/09/20 07:29 Pulse Ox 100 03/09/20 07:29 03/08/20 03/09/20 03/09/20 22:59 06:59 14:59 Intake Total 1676.667 / 1676.667 833.333 / 2510.000 766.667 / 766.667 Balance 1676.667 / 1676.667 833.333 / 2510.000 766.667 / 766.667 Weight last 48 hrs Weight 142 lb 5 oz Weight 140 lb Physical Exam Narrative: EXAM NARRATIVE: Patient is conscious alert oriented X3 BMI20 Below knee amputation stump shows mild to moderate tenderness particularly on the posterior aspect with minimal skin changes, dry scab less than a centimeter located towards the lateral aspect of the previous scar without obvious opening or discharge. Data : 03/09/20 02:41 03/09/20 02:41 Micro: Microbiology 03/08/20 11:40 Blood Culture - Preliminary Blood NEGATIVE TO DATE 03/08/20 11:44 Blood Culture - Preliminary Blood NEGATIVE TO DATE A&P Assessment and plan (1) Fluid collection at surgical site: I would prefer to have an MRI of the left below-knee amputation stump site for better evaluation if that is not going to work as the patient feels anand trophobic, I would recommend a triphasic bone scan to rule out osteomyelitis and ultrasound of the left below-knee stump site assess the complexity of the fluid collection if it coincides with the CT scan patient will require likely I&D versus hematoma that likely conservative measures would be appropriate in the absence of fevers chills or elevated WBC count. Recommend to have the patient n.p.o. after midnight for potential surgical intervention tomorrow after the studies being done. Assurance and education All questions have been answered and all concerns have been addressed to patient's satisfaction. Status: Acute Attestations Medical Necessity Statement*: Per hospitalist srvice Time Spent in Patient Care: (>than 50% of time spent in counselling and/or direct pt care on unit) . 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 Code Acute Pollution Control Chemist for Chg Fwd Diagnoses Fluid collection at surgical site T88.8XXA
--- NOTE | 2020-03-09 12:59 | USR_ITS ---
PROCEDURE INFORMATION: Exam: US Unlisted Ultrasound Procedure Exam date and time: 03/09/2020 4:41 PM Age: 39 years old Clinical indication: Pain; Patient status: Conscious; Pain: Patient had amputation of the left leg at the level of the knee. The stump site is red and swollen. Area was evaluated with ultrasound and appears to be a large fluid collection and has debris within. This area does not have blood flow. Area measures 4.99 x 2.23 x 4.13 cm. ; Prior surgery; Surgery date: 6+ months; Surgery type: 7 months post amputation. ; Additional info: Left below-knee amputation stump site fluid collection TECHNIQUE: Imaging protocol: Unlisted ultrasound procedure (eg, diagnostic, interventional). COMPARISON: CT lower leg LT w con [id number] 03/08/2020 10:58:40 AM FINDINGS: There is a complicated fluid collection at the distal end of the left BKA stump measuring approximately 4.5 x 2.2 by 4.1 cm. This contains some fluid and debris and is worrisome for abscess. This corresponds with the findings on the recent CT scan. US/US soft tissue/extremity [id number] IMPRESSION: Findings worrisome for abscess at the distal end of the left BKA stump.
--- NOTE | 2020-03-09 14:33 | PC.NURSE ---
Prn note Patient continues to ambulate in the halls, Patient educated on the importance of resting her foot as it has stitches in it. She is reluctance to comply stating I am in pain and i cannot stay down.
[2020-03-09 16:08] LABS: Glucose Point of Care 147 mg/dL (70-110)
--- NOTE | 2020-03-09 16:11 | PM.PN ---
Subjective Subjective: Interval history: Reported complaints of pain per nursing staff, unable to tolerate MRI early this morning due to pain. Has reportedly due to abdominal discomfort. Has noted allergy to morphine, currently on Dilaudid. Had received fentanyl in ER with minimal improvement in pain. Requesting IV pain medicine as she has been nauseated and vomiting for much of the day. Has taken multiple showers as she states this is what she does at home to cope with the pain. Case discussed with Dr. Holley. Medications: Reviewed: Yes Medication Review Details: Active Medications Generic Name Dose Route Start Last Admin Trade Name Freq PRN Reason Stop Dose Admin Acetaminophen 650 mg 03/08/20 15:51 Tylenol PO Q6H PRN Mild/Mod Pain Or Temp >/= 101 Buspirone HCl 10 mg 03/08/20 18:00 03/09/20 07:34 Buspar PO 10 mg BID DAWSON Administration Carvedilol 3.125 mg 03/08/20 16:00 03/09/20 03:54 Coreg PO 3.125 mg Q12H DAWSON Administration Dextrose 25 ml 03/08/20 15:51 D50w IVP ONCE PRN hypoglycemia prot ocol Protocol Dextrose 50 ml 03/08/20 15:51 D50w IVP PRN PRN hypoglycemia prot ocol Protocol Gabapentin 300 mg 03/08/20 17:00 03/09/20 14:05 Neurontin PO 300 mg QID DAWSON Administration Glucagon 1 mg 03/08/20 15:51 Glucagen IM ONCE PRN Adult Acute Hypog lycemia Prot. Protocol Heparin Sodium (Be ef Lung) 5,000 unit 03/08/20 16:30 03/09/20 03:54 Heparin SUBCUT 5,000 unit Q12H DAWSON Administration Hydromorphone HCl 2 mg 03/08/20 15:51 03/09/20 14:05 Dilaudid Tab PO 2 mg Q6H PRN Administration SEVERE PAIN Sodium Chloride 1,000 mls @ 100 m ls/hr 03/08/20 15:51 03/09/20 07:51 Sodium Chloride 0.9% IV 100 mls/hr .Q10H DAWSON Administration Piperacillin Sod/T azobactam 50 mls @ 12.5 mls /hr 03/08/20 19:30 03/09/20 12:11 Sod 3.375 gm/ So dium Chloride IV 12.5 mls/hr Q8H DAWSON Administration Protocol Vancomycin HCl 750 mg/ Sodium 250 mls @ 250 mls /hr 03/09/20 05:00 03/09/20 03:54 Chloride IV 250 mls/hr Q12H DAWSON Administration Protocol Dextrose 500 mls @ 100 mls /hr 03/08/20 15:51 D5w IV ONCE PRN Adult Acute Hypog lycemia Prot Protocol Insulin Aspart 0 unit 03/08/20 18:00 03/09/20 16:01 Novolog SUBCUT Not Given WM&BEDTIME DAWSON Protocol Insulin Glargine 5 unit 03/08/20 21:00 03/08/20 21:29 Lantus SUBCUT 5 unit BEDTIME DAWSON Administration Lactobacillus Acid ophilus 1 tab 03/08/20 18:00 03/09/20 07:35 Floranex PO 1 tab BID DAWSON Administration Lactulose 10 gm 03/08/20 15:51 Constulose PO DAILY PRN CONSTIPA Metoclopramide HCl 10 mg 03/08/20 17:00 03/09/20 14:05 Reglan PO 10 mg QID DAWSON Administration Ondansetron HCl 4 mg 03/08/20 15:51 03/09/20 09:36 Zofran IVP 4 mg Q8H PRN Administration vomiting, or N/V if npo Polyethylene Glyco l 17 gm 03/08/20 15:51 03/09/20 08:43 Miralax PO Not Given DAILY [facility] Senna/Docusate Sod ium 2 tab 03/08/20 18:00 03/09/20 08:43 Senna-S PO Not Given BID [facility] Sucralfate 1 gm 03/08/20 15:51 03/09/20 14:07 Carafate PO Not Given TID [facility] morphine Allergy (Verified 03/08/20 16:20) ALGY-Difficulty Breathing Vitals/I&O/Wt Last Vital Signs Temp 99.1 F 03/09/20 15:51 Pulse 101 H 03/09/20 15:51 Resp 20 H 03/09/20 15:51 BP 88/59 03/09/20 15:51 Pulse Ox 100 03/09/20 15:51 03/09/20 03/09/20 03/09/20 06:59 14:59 22:59 Intake Total 833.333 / 2510.000 766.667 / 766.667 Balance 833.333 / 2510.000 766.667 / 766.667 Weight last 48 hrs Weight 64.552 kg Weight 63.503 kg Physical Exam Const: COMMON NORMALS: no acute distress and patient oriented x3 GENERAL APPEARANCE: cooperative and comfortable ORIENTATION/CONSCIOUSNESS: Yes awake HENMT: COMMON NORMALS: normocephalic, atraumatic, hearing grossly normal bilaterally and moist oral mucous membranes HEAD & SCALP: normocephalic and atraumatic TEETH & GINGIVA: Yes poor dentition Eye: COMMON NORMALS: Equal, round and reactive pupils present, EOMs intact bilaterally and conjunctivae normal CONJUNCTIVA: Yes conjunctivae normal PUPIL: Yes Equal, round and reactive pupils present Neck/C-Spine: COMMON NORMALS: full ROM GENERAL: Yes normal visual inspection and Yes trachea midline Resp: COMMON NORMALS: normal respiratory effort, No retractions, No use of accessory muscles and clear to auscultation bilaterally EFFORT & INSPECTION: Yes able to speak in complete sentences, Yes symmetric chest movement and No tachypneic AUSCULTATION: clear to auscultation bilaterally Cardio: COMMON NORMALS: regular rate, regular rhythm, S1 normal heart sound present, S2 normal heart sound present and No murmurs present (Cardio) RATE: regular rate RHYTHM: regular rhythm HEART SOUNDS: S1 normal heart sound present and S2 normal heart sound present GI: COMMON NORMALS: Normal to inspection, nondistended, normoactive bowel sounds present, Soft to palpation and non-tender PALPATION: Yes Soft to palpation Extremity: COMMON NORMALS: normal to inspection, full ROM and no clubbing, cyanosis or edema; negative for no pedal edema Neuro: COMMON NORMALS: patient oriented x3, moves all extremities, no focal motor deficits and no sensory deficits noted Psych: COMMON NORMALS: mental status grossly normal, Normal thought process present, cooperative and speech normal SPEECH: Yes normal speech MOOD & AFFECT: Yes Flat affect present THOUGHT PROCESS: Normal thought process present Skin: COMMON NORMALS: no rashes or lesions noted, no jaundice, no petechiae and no mottling NARRATIVE SKIN EXAM: -small discrete open area along L BKA stump site, no active drainage, some tenderness to palpation and warmth to touch. -s/p 3rd R toe amputation, some sutures in place -s/p prior amputation of R great toe GENERAL SKIN EXAM: no rashes or lesions noted Data : 03/09/20 02:41 03/09/20 02:41 Micro: Microbiology 03/08/20 11:40 Blood Culture - Preliminary Blood NEGATIVE TO DATE 03/08/20 11:44 Blood Culture - Preliminary Blood NEGATIVE TO DATE A&P Assessment and plan (1) Abdominal pain: -Seems to be recurrent and chronic issue, multiple hospital visits and admissions for similar symptoms -Noted fecal retention on imaging -Bowel regimen -Pain control and antiemetics as needed; suspect symptom magnification and pain seeking behavior -Suspected to have gastroparesis secondary to underlying diabetes; continue Reglan -on Carafate Status: Acute Qualifiers: Abdominal location: right lower quadrant Qualified Code(s): R10.31 - Right lower quadrant pain (2) Cellulitis and abscess of leg: -Noted to have open area along amputation site (L BKA), no active drainage -Imaging shows suspicious findings for abscesses and osteomyelitis -Received dose of vancomycin and Levaquin in ER, for now we will continue Zosyn and vancomycin, has prior history of MRSA -MRI ordered for more definitive diagnosis of osteomyelitis but unable to tolerate due to pain. Three-phase bone scan ordered instead. US ordered as well showing findings concerning for abscess at the distal end of the left BKA stump -Surgery consult requested in case of need for drainage or debridement; case discussed briefly with Dr. 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 -A1c-7.5 (12/2019) -Accu-Cheks, scheduled and ISS, hypoglycemia precautions Status: Inactive Qualifiers: Diabetes mellitus complication status: with other specified complication Qualified Code(s): E10.69 - Type 1 diabetes mellitus with other specified complication (4) Constipation: -Noted on imaging -Bowel regimen; has had 2 bowel movement so far Status: Acute Qualifiers: Constipation type: unspecified constipation type Qualified Code(s): K59.00 - Constipation, unspecified (5) Hypokalemia: -Noted to have mild hypokalemia with potassium of 3.0; now resolved -Continue to monitor and replace as needed Status: Resolved Additional A&P Information -hx of CAD s/p stenting; hold ASA, Plavix in case of need for procedure -CKD stage 2 secondary to diabetic nephropathy, baseline Cr around 1.0, monitor renal function particularly with contrast studies and use of Zosyn and vancomycin; avoid nephrotoxins, renally dose meds, IVF hydration -s/p LLE BKA -Dyslipidemia; has not been on statin -Chronic anemia; hold iron supplementation due to constipation -HTN; VSS currently, hold low dose ACEi due to concern for possible nephrotoxicity with contrast studies -GI ppx with PPI -DVT ppx with heparin -NPO after midnight for possible I & D -Dispo: home -Code status: FULL code Attestations Medical Necessity Statement*: Patient requires hospitalization for continued management of abdominal pain, treatment of left lower extremity cellulitis with question of osteomyelitis pending definitive imaging, on IV antibiotic therapy. Time Spent in Patient Care: 16 - 35 minutes (>than 50% of time spent in counselling and/or direct pt care on unit). 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 Code Acute Nurse Orthopedic for g Fwd Exam Comprehensive Diagnoses Abdominal pain R10.31 Abdominal location: right lower quadrant Cellulitis and abscess of leg L03.119; L02.419 Diabetes mellitus type 1 E10.69 Diabetes mellitus complication status: with other specified complication Constipation K59.00 Constipation type: unspecified constipation type Hypokalemia E87.6
[2020-03-09] MEDS: LORazepam 2 mg/mL INJ 1 mL IVP ×2 (17:04→23:29)
[2020-03-09] MEDS: HYDROmorphone 1 mg/mL INJ 1 mL 0.5 MG IVP ×2 (17:06→23:25)
--- NOTE | 2020-03-09 19:22 | PC.NURSE ---
Shift Summary: Patient c/o ABD pain throughout the day. She was nauseous with noted bile emesis frequently. Patient was given all antimetics and pain meds that were ordered for her. Patient was also offered distraction techniques, showered multiple times, given a warmed towel to help ease pain. Physician was notified of patient status with no new orders until 1644 and meds given as ordered. Patient noted to be sleeping on reassessment. Throughout the day the patient ambulated in halls with walker unhooking herself from her IV abx and IV fluids multiple times. Patient was educated on infection risk and fall risks. FRED DEAN
--- NOTE | 2020-03-09 20:04 | PC.NURSE ---
BP BP 190/99 in left arm with manual check done and obtained near same. Checked on right arm with reading 207/98 Pt care nurse notified
[2020-03-09] MEDS: insulin glargine 100 units/1 mL 5 UNIT SUBCUT (20:32)
[2020-03-09 20:47] LABS: Glucose Point of Care 150 mg/dL (70-110)
[2020-03-10] VITALS (17 sets, daily range): BP systolic 106–171; BP diastolic 65–98; PULSE 61–78; RESP 12–16; TEMP 36.3–37.6; O2SAT 98–100
[2020-03-10 03:50] LABS: Basophils # 0.1 10^3/uL (0.0-0.1); Basophils % 0.8 %; Eosinophils # 0.1 10^3/uL (0.0-0.8); Eosinophils % 1.8 %; Hemoglobin 10.8 g/dL (11.5-15.3); Lymphocytes # 1.7 10^3/uL (0.8-4.8); Lymphocytes % 26.1 %; Mean Corpuscular HGB Conc 31.8 g/dL (30.0-36.0); Mean Corpuscular Hemoglobin 28.5 pg (28.0-34.0); Mean Corpuscular Volume 89.7 fL (81-99); Mean Platelet Volume 8.8 fL (7.4-10.4); Monocytes # 0.6 10^3/uL (0.2-0.9); Monocytes % 9.8 %; Neutrophils # 3.99 10^3/uL (1.8-7.7); Neutrophils % 61.2 %; Nucleated Red Blood Cells % 0 %; Platelet Count 300 10^3/cmm (130-400); Red Blood Count 3.79 10^6/uL (4.1-5.3); Red Cell Distribution Width 13.8 % (12.1-15.1); White Blood Count 6.5 10^3/uL (4.0-10.0)
[2020-03-10] MEDS: heparin 5,000 unit/mL INJ 1 mL 5000 UNIT SUBCUT ×2 (04:33→15:58)
[2020-03-10] MEDS: carvedilol 3.125 mg Tablet PO ×2 (04:33→15:56)
[2020-03-10] MEDS: HYDROmorphone 1 mg/mL INJ 1 mL 0.5 MG IVP ×3 (04:57→18:40)
[2020-03-10] MEDS: ondansetron 2 mg/ML SDV 2 mL 4 MG IVP (04:57)
[2020-03-10] MEDS: vancomycin 750 MG in sodium chloride 0.9% 250 ML 250 MG IV (04:59)
[2020-03-10 06:33] LABS: Glucose Point of Care 112 mg/dL (70-110)
[2020-03-10] MEDS: piperacillin-tazobactam 3.375 GM in sodium chloride 0.9% (plus) 50 ML IV ×2 (06:41→23:05)
--- NOTE | 2020-03-10 08:29 | P.PN_ITS ---
Subjective Subjective: Interval history: Bone scan is not done yet Ultrasound showed complex fluid collection likely abscess. Vitals/I&O/Wt Last Vital Signs Temp 98.6 F 03/10/20 07:29 Pulse 73 03/10/20 07:29 Resp 14 03/10/20 07:29 BP 144/84 03/10/20 07:29 Pulse Ox 100 03/10/20 07:29 03/09/20 03/10/20 03/10/20 22:59 06:59 14:59 Intake Total 300 / 1066.667 250 / 1316.667 Output Total 1600 / 1600 1600 / 3200 Balance -1300 / -533.333 -1350 / -1883.333 Weight last 48 hrs Weight 143 lb 8 oz Weight 142 lb 5 oz Weight 140 lb Physical Exam Narrative: EXAM NARRATIVE: Patient is conscious alert oriented X3 BMI20 Below knee amputation stump shows mild to moderate tenderness particularly on the posterior aspect with minimal skin changes, dry scab less than a centimeter located towards the lateral aspect of the previous scar without obvious opening or discharge. Redness appreciated at the below-knee stump site Data : 03/10/20 03:37 03/09/20 02:41 Micro: Microbiology 03/08/20 11:40 Blood Culture - Preliminary Blood NEGATIVE TO DATE 03/08/20 11:44 Blood Culture - Preliminary Blood NEGATIVE TO DATE A&P Assessment and plan (1) Fluid collection at surgical site: We will plan to take the patient for I&D of left below knee amputation stump site fluid collection likely an abscess Will follow on bone scan Informed consent per chart Assurance and education All questions have been answered and all concerns have been addressed to patient's satisfaction. Status: Acute Attestations Medical Necessity Statement*: Per hospitalist service Time Spent in Patient Care: (>than 50% of time spent in counselling and/or direct pt care on unit) . 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 Code Acute Drafter Heating And Ventilating for [place] Diagnoses Fluid collection at surgical site T88.8XXA
--- NOTE | 2020-03-10 10:02 | PC.NURSE ---
pt taken for bone scan at 1000
--- NOTE | 2020-03-10 10:05 | PC.NURSE ---
pt refused meds til after bone scan
[2020-03-10] MEDS: LORazepam 2 mg/mL INJ 1 mL IVP ×2 (10:45→18:39)
[2020-03-10 11:25] LABS: Glucose Point of Care 106 mg/dL (70-110)
--- NOTE | 2020-03-10 11:59 | P.PN_ITS ---
Subjective Subjective: Interval history: Her 2500 mL urine output overnight, 700 mL emesis. Hemodynamically stable, afebrile, on room air. Improvement in hemoglobin today, normalized renal function. Bone scan today, taken to the OR directly from bone scan. Seen upon return, somewhat groggy though does not seem to be in any distress, denies pain currently. Case discussed briefly with Dr. Saucedo in the afternoon status post incision and drainage of abscess. Medications: Reviewed: Yes Medication Review Details: Active Medications Generic Name Dose Route Start Last Admin Trade Name Freq PRN Reason Stop Dose Admin Acetaminophen 650 mg 03/08/20 15:51 Tylenol PO Q6H PRN Mild/Mod Pain Or Temp >/= 101 Buspirone HCl 10 mg 03/08/20 18:00 03/10/20 10:15 Buspar PO Not Given BID DAWSON Carvedilol 3.125 mg 03/08/20 16:00 03/10/20 04:33 Coreg PO 3.125 mg Q12H DAWSON Administration Dextrose 25 ml 03/08/20 15:51 D50w IVP ONCE PRN hypoglycemia prot ocol Protocol Dextrose 50 ml 03/08/20 15:51 D50w IVP PRN PRN hypoglycemia prot ocol Protocol Gabapentin 300 mg 03/08/20 17:00 03/10/20 10:15 Neurontin PO Not Given QID DAWSON Glucagon 1 mg 03/08/20 15:51 Glucagen IM ONCE PRN Adult Acute Hypog lycemia Prot. Protocol Heparin Sodium (Be ef Lung) 5,000 unit 03/08/20 16:30 03/10/20 04:33 Heparin SUBCUT 5,000 unit Q12H DAWSON Administration Hydromorphone HCl 2 mg 03/09/20 18:00 Dilaudid Tab PO Q4H PRN SEVERE PAIN Hydromorphone HCl 0.5 mg 03/09/20 16:44 03/10/20 09:32 Dilaudid Inj IVP 0.5 mg Q4H PRN Administration severe pain Sodium Chloride 1,000 mls @ 100 m ls/hr 03/08/20 15:51 03/09/20 07:51 Sodium Chloride 0.9% IV 100 mls/hr .Q10H DAWSON Administration Piperacillin Sod/T azobactam 50 mls @ 12.5 mls /hr 03/08/20 19:30 03/10/20 06:41 Sod 3.375 gm/ So dium Chloride IV 12.5 mls/hr Q8H DAWSON Administration Protocol Vancomycin HCl 750 mg/ Sodium 250 mls @ 250 mls /hr 03/09/20 05:00 03/10/20 04:59 Chloride IV 250 mls/hr Q12H DAWSON Administration Protocol Dextrose 500 mls @ 100 mls /hr 03/08/20 15:51 D5w IV ONCE PRN Adult Acute Hypog lycemia Prot Protocol Insulin Aspart 0 unit 03/08/20 18:00 03/10/20 10:13 Novolog SUBCUT Not Given WM&BEDTIME DAWSON Protocol Insulin Glargine 5 unit 03/08/20 21:00 03/09/20 20:32 Lantus SUBCUT 5 unit BEDTIME DAWSON Administration Lactobacillus Acid ophilus 1 tab 03/08/20 18:00 03/10/20 10:15 Floranex PO Not Given BID DAWSON Lactulose 10 gm 03/08/20 15:51 Constulose PO DAILY PRN CONSTIPA Lorazepam 2 mg 03/09/20 16:48 03/10/20 10:45 Ativan IVP 2 mg Q4H PRN Administration ANXIETY Metoclopramide HCl 10 mg 03/08/20 17:00 03/10/20 10:16 Reglan PO Not Given QID [facility] Ondansetron HCl 4 mg 03/08/20 15:51 03/10/20 04:57 Zofran IVP 4 mg Q8H PRN Administration vomiting, or N/V if npo Polyethylene Glyco l 17 gm 03/08/20 15:51 03/10/20 10:16 Miralax PO Not Given DAILY [facility] Senna/Docusate Sod ium 2 tab 03/08/20 18:00 03/10/20 10:16 Senna-S PO Not Given BID [facility] Sucralfate 1 gm 03/08/20 15:51 03/10/20 10:17 Carafate PO Not Given TID [facility] morphine Allergy (Verified 03/08/20 16:20) ALGY-Difficulty Breathing Vitals/I&O/Wt Last Vital Signs Temp 98.8 F 03/10/20 11:13 Pulse 61 03/10/20 11:13 Resp 14 03/10/20 11:13 BP 129/79 03/10/20 11:13 Pulse Ox 100 03/10/20 11:13 03/09/20 03/10/20 03/10/20 22:59 06:59 14:59 Intake Total 300 / 1066.667 250 / 1316.667 Output Total 1600 / 1600 1600 / 3200 Balance -1300 / -533.333 -1350 / -1883.333 Weight last 48 hrs Weight 65.091 kg Weight 64.552 kg Physical Exam Const: COMMON NORMALS: no acute distress and patient oriented x3 GENERAL APPEARANCE: cooperative and comfortable ORIENTATION/CONSCIOUSNESS: Yes awake OTHER: -somewhat groggy following return from OR HENMT: COMMON NORMALS: normocephalic, atraumatic, hearing grossly normal bilaterally and moist oral mucous membranes HEAD & SCALP: normocephalic and atraumatic TEETH & GINGIVA: Yes poor dentition Eye: COMMON NORMALS: Equal, round and reactive pupils present, EOMs intact bilaterally and conjunctivae normal CONJUNCTIVA: Yes conjunctivae normal PUPIL: Yes Equal, round and reactive pupils present Neck/C-Spine: COMMON NORMALS: full ROM GENERAL: Yes normal visual inspection and Yes trachea midline Resp: COMMON NORMALS: normal respiratory effort, No retractions, No use of accessory muscles and clear to auscultation bilaterally EFFORT & INSPECTION: Yes able to speak in complete sentences, Yes symmetric chest movement and No tachypneic AUSCULTATION: clear to auscultation bilaterally Cardio: COMMON NORMALS: regular rate, regular rhythm, S1 normal heart sound present, S2 normal heart sound present and No murmurs present (Cardio) RATE: regular rate RHYTHM: regular rhythm HEART SOUNDS: S1 normal heart sound present and S2 normal heart sound present GI: COMMON NORMALS: Normal to inspection, nondistended, normoactive bowel sounds present, Soft to palpation and non-tender PALPATION: Yes Soft to palpation Extremity: COMMON NORMALS: no pedal edema (RLE) NARRATIVE EXTREMITY EXAM: - s/p L BKA Neuro: COMMON NORMALS: patient oriented x3, moves all extremities, no focal motor deficits and no sensory deficits noted Psych: COMMON NORMALS: mental status grossly normal, Normal thought process present, cooperative and speech normal SPEECH: Yes normal speech MOOD & AFFECT: Yes Flat affect present THOUGHT PROCESS: Normal thought process present Skin: COMMON NORMALS: no rashes or lesions noted, no jaundice, no petechiae and no mottling NARRATIVE SKIN EXAM: -small discrete open area along L BKA stump site, no active drainage, some tenderness to palpation and warmth to touch. Bulky dressing in place -s/p 3rd R toe amputation, some sutures in place -s/p prior amputation of R great toe GENERAL SKIN EXAM: no rashes or lesions noted Data : 03/10/20 03:37 03/09/20 02:41 Micro: Microbiology 03/08/20 11:40 Blood Culture - Preliminary Blood NEGATIVE TO DATE 03/08/20 11:44 Blood Culture - Preliminary Blood NEGATIVE TO DATE A&P Assessment and plan (1) Abdominal pain: -Seems to be recurrent and chronic issue, multiple hospital visits and admissions for similar symptoms -Noted fecal retention on imaging -Bowel regimen -Pain control and antiemetics as needed; suspect symptom magnification and pain seeking behavior -Suspected to have gastroparesis secondary to underlying diabetes; continue Reglan -on Carafate Status: Acute Qualifiers: Abdominal location: right lower quadrant Qualified Code(s): R10.31 - Right lower quadrant pain (2) Cellulitis and abscess of leg: -Noted to have open area along amputation site (L BKA), no active drainage -Imaging shows suspicious findings for abscesses and osteomyelitis -Received dose of vancomycin and Levaquin in ER, for now we will continue Zosyn and vancomycin, has prior history of MRSA -MRI ordered for more definitive diagnosis of osteomyelitis but unable to tolerate due to pain. Three-phase bone scan reported as osteomyelitis. US ordered as well showing findings concerning for abscess at the distal end of the left BKA stump -Surgery consult by Dr. Saucedo appreciated; s/p I & D today -no leukocytosis, noted ESR-23, CRP-2.1 -IVF hydration -blood cx: prelim negative; had prior blood cx (03/05) which were positive for GPC and GPRs, pending ID & sensitivity Status: Acute (3) Diabetes mellitus type 1: -noted hx of DM type I complicated by nephropathy and neuropathy -A1c-7.5 (12/2019) -Accu-Cheks, scheduled and ISS, hypoglycemia precautions Status: Inactive Qualifiers: Diabetes mellitus complication status: with other specified complication Qualified Code(s): E10.69 - Type 1 diabetes mellitus with other specified compl ication (4) Constipation: -Noted on imaging -Bowel regimen; has had 2 bowel movement so far Status: Acute Qualifiers: Constipation type: unspecified constipation type Qualified Code(s): K59.00 - Constipation, unspecified (5) Hypokalemia: -Noted to have mild hypokalemia with potassium of 3.0; now resolved -Continue to monitor and replace as needed Status: Resolved Additional A&P Information -hx of CAD s/p stenting; hold ASA, Plavix in case of need for procedure -CKD stage 2 secondary to diabetic nephropathy, baseline Cr around 1.0, monitor renal function particularly with contrast studies and use of Zosyn and vancomycin; avoid nephrotoxins, renally dose meds, IVF hydration -s/p LLE BKA -Dyslipidemia; has not been on statin -Chronic anemia; hold iron supplementation due to constipation -HTN; VSS currently, hold low dose ACEi due to concern for possible nephrotoxicity with contrast studies -GI ppx with PPI -DVT ppx with heparin -NPO after midnight for possible I & D -Dispo: home -Code status: FULL code Attestations Medical Necessity Statement*: Patient requires hospitalization for continued management of abdominal pain, cellulitis and BKA stump abscess with question of osteomyelitis pending bone scan, needs continued IV antibiotics and s/p I & D. Time Spent in Patient Care: 16 - 35 minutes (>than 50% of time spent in counselling and/or direct pt care on unit) . 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 Code Acute Truck Driving Instructor for g Fwd Exam Comprehensive Diagnoses Abdominal pain R10.31 Abdominal location: right lower quadrant Cellulitis and abscess of leg L03.119; L02.419 Diabetes mellitus type 1 E10.69 Diabetes mellitus complication status: with other specified complication Constipation K59.00 Constipation type: unspecified constipation type Hypokalemia E87.6
--- NOTE | 2020-03-10 12:42 | PC.NURSE ---
pt off the floor for bone scan and then to surgery.
--- NOTE | 2020-03-10 13:18 | ANES.PREANE2 ---
Pre-Anesthetic Assessment Pre-Anesthetic Assessment: Height/Weight: Height 1.75 m Weight 65.091 kg Temp Pulse Resp BP Pulse Ox 98.8 F 61 14 129/79 100 03/10/20 11:13 03/10/20 11:13 03/10/20 11:13 03/10/20 11:13 03/10/20 11:13 Preop Diagnosis: Osteomyelitis right third toe Proposed Procedure: Operation Date: 03/10/20 13:40 Proposed Procedures p Incision And Drainage left leg abscess(Not Applicable) - Dave Holley MD Familial anesthetic complications: none Was Beta Rozina taken within 24 hours: Yes Last intake: NPO > 8 hrs (had episode of emesis last nigth at 0100 - vomited up some of her dinner), no nasea currently Social: Social History: No alcohol and No tobacco Exam: Pre-Anes Outpt Exam: alert, oriented x 3, clear to auscultation bilaterally and regular rate & rhythm Airway: Cervical ROM: WNL MP: 2 Additional comments: poor dentition CV/HEM: CV/HEM: CAD (stent - holding asa and plavix for procedure) and HTN GI: Comments: ?gastroparesis Metabolic: Metabolic: DM (type I - uncontrolled) and Hyperlipidemia Anesthetic Plan: ASA status: 2 Anesthesia: MAC Risk of > 500 ml blood loss (7ml/kg in children): No Meds/Allergies Current Medications: Current Medications Generic Name Dose Route Start Last Admin Trade Name Freq PRN Reason Stop Dose Admin Buspirone HCl 10 mg 03/08/20 18:00 03/10/20 10:15 Buspar PO Not Given BID DAWSON Carvedilol 3.125 mg 03/08/20 16:00 03/10/20 04:33 Coreg PO 3.125 mg Q12H DAWSON Administration Gabapentin 300 mg 03/08/20 17:00 03/10/20 10:15 Neurontin PO Not Given QID DAWSON Heparin Sodium (Be ef Lung) 5,000 unit 03/08/20 16:30 03/10/20 04:33 Heparin SUBCUT 5,000 unit Q12H DAWSON Administration Hydromorphone HCl 0.5 mg 03/09/20 16:44 03/10/20 09:32 Dilaudid Inj IVP 0.5 mg Q4H PRN Administration severe pain Sodium Chloride 1,000 mls @ 100 m ls/hr 03/08/20 15:51 03/09/20 07:51 Sodium Chloride 0.9% IV 100 mls/hr .Q10H DAWSON Administration Piperacillin Sod/T azobactam 50 mls @ 12.5 mls /hr 03/08/20 19:30 03/10/20 06:41 Sod 3.375 gm/ So dium Chloride IV 12.5 mls/hr Q8H DAWSON Administration Protocol Vancomycin HCl 750 mg/ Sodium 250 mls @ 250 mls /hr 03/09/20 05:00 03/10/20 04:59 Chloride IV 250 mls/hr Q12H DAWSON Administration Protocol Insulin Aspart 0 unit 03/08/20 18:00 03/10/20 10:13 Novolog SUBCUT Not Given WM&BEDTIME DAWSON Protocol Insulin Glargine 5 unit 03/08/20 21:00 03/09/20 20:32 Lantus SUBCUT 5 unit BEDTIME DAWSON Administration Lactobacillus Acid ophilus 1 tab 03/08/20 18:00 03/10/20 10:15 Floranex PO Not Given BID DAWSON Lorazepam 2 mg 03/09/20 16:48 03/10/20 10:45 Ativan IVP 2 mg Q4H PRN Administration ANXIETY Metoclopramide HCl 10 mg 03/08/20 17:00 03/10/20 10:16 Reglan PO Not Given QID DAWSON Ondansetron HCl 4 mg 03/08/20 15:51 03/10/20 04:57 Zofran IVP 4 mg Q8H PRN Administration vomiting, or N/V if npo Polyethylene Glyco l 17 gm 03/08/20 15:51 03/10/20 10:16 Miralax PO Not Given DAILY [facility] Senna/Docusate Sod ium 2 tab 03/08/20 18:00 03/10/20 10:16 Senna-S PO Not Given BID [facility] Sucralfate 1 gm 03/08/20 15:51 03/10/20 10:17 Carafate PO Not Given TID [facility] Additional Medication Information: Active Medications Generic Name Dose Route Start Last Admin Trade Name Freq PRN Reason Stop Dose Admin Acetaminophen 650 mg 03/08/20 15:51 Tylenol PO Q6H PRN Mild/Mod Pain Or Temp >/= 101 Buspirone HCl 10 mg 03/08/20 18:00 03/10/20 10:15 Buspar PO Not Given BID DAWSON Carvedilol 3.125 mg 03/08/20 16:00 03/10/20 04:33 Coreg PO 3.125 mg Q12H DAWSON Administration Dextrose 25 ml 03/08/20 15:51 D50w IVP ONCE PRN hypoglycemia prot ocol Protocol Dextrose 50 ml 03/08/20 15:51 D50w IVP PRN PRN hypoglycemia prot ocol Protocol Gabapentin 300 mg 03/08/20 17:00 03/10/20 10:15 Neurontin PO Not Given QID DAWSON Glucagon 1 mg 03/08/20 15:51 Glucagen IM ONCE PRN Adult Acute Hypog lycemia Prot. Protocol Heparin Sodium (Be ef Lung) 5,000 unit 03/08/20 16:30 03/10/20 04:33 Heparin SUBCUT 5,000 unit Q12H DAWSON Administration Hydromorphone HCl 2 mg 03/09/20 18:00 Dilaudid Tab PO Q4H PRN SEVERE PAIN Hydromorphone HCl 0.5 mg 03/09/20 16:44 03/10/20 09:32 Dilaudid Inj IVP 0.5 mg Q4H PRN Administration severe pain Sodium Chloride 1,000 mls @ 100 m ls/hr 03/08/20 15:51 03/09/20 07:51 Sodium Chloride 0.9% IV 100 mls/hr .Q10H DAWSON Administration Piperacillin Sod/T azobactam 50 mls @ 12.5 mls /hr 03/08/20 19:30 03/10/20 06:41 Sod 3.375 gm/ So dium Chloride IV 12.5 mls/hr Q8H DAWSON Administration Protocol Vancomycin HCl 750 mg/ Sodium 250 mls @ 250 mls /hr 03/09/20 05:00 03/10/20 04:59 Chloride IV 250 mls/hr Q12H DAWSON Administration Protocol Dextrose 500 mls @ 100 mls /hr 03/08/20 15:51 D5w IV ONCE PRN Adult Acute Hypog lycemia Prot Protocol Insulin Aspart 0 unit 03/08/20 18:00 03/10/20 10:13 Novolog SUBCUT Not Given WM&BEDTIME DAWSON Protocol Insulin Glargine 5 unit 03/08/20 21:00 03/09/20 20:32 Lantus SUBCUT 5 unit BEDTIME DAWSON Administration Lactobacillus Acid ophilus 1 tab 03/08/20 18:00 03/10/20 10:15 Floranex PO Not Given BID DAWSON Lactulose 10 gm 03/08/20 15:51 Constulose PO DAILY PRN [facility] Lorazepam 2 mg 03/09/20 16:48 03/10/20 10:45 Ativan IVP 2 mg Q4H PRN Administration ANXIETY Metoclopramide HCl 10 mg 03/08/20 17:00 03/10/20 10:16 Reglan PO Not Given QID DAWSON Ondansetron HCl 4 mg 03/08/20 15:51 03/10/20 04:57 Zofran IVP 4 mg Q8H PRN Administration vomiting, or N/V if npo Polyethylene Glyco l 17 gm 03/08/20 15:51 03/10/20 10:16 Miralax PO Not Given DAILY [facility] Senna/Docusate Sod ium 2 tab 03/08/20 18:00 03/10/20 10:16 Senna-S PO Not Given BID [facility] Sucralfate 1 gm 03/08/20 15:51 03/10/20 10:17 Carafate PO Not Given TID [facility] morphine Allergy (Verified 03/08/20 16:20) ALGY-Difficulty Breathing PFSH Anesthesia PFSH: Medical History CKD (chronic kidney disease) stage 2, GFR 60-89 ml/min -secondary to diabetic nephropathy -baseline Cr is around 1.0 Coronary artery disease -hx of CAD s/p stenting Diabetes mellitus type 1 Diabetic gastroparesis -secondary to DM type I Foot osteomyelitis, right Hyperlipidemia Surgical History Below-knee amputation of left lower extremity H/O exploratory laparotomy x 3 History of amputation of right forefoot Previous section x 3 S/P coronary artery stent placement x 1 S/P percutaneous endoscopic gastrostomy (PEG) tube placement Family History Unknown Diabetes extensive, type II Other CHF (congestive heart failure) Social History Smoking and tobacco status: former smoker Quit status (tobacco): has quit using tobacco Former quit date comment: 15 yrs ago Alcohol intake: former Former alcohol use details: 15 yrs ago Household members: spouse Marital status: Sexually active: Yes (1, ) Female Reproductive History: Date of last menstrual period: 07/24/18 Data Anesthesia CBC & Chem 7: 03/10/20 03:37 03/09/20 02:41 Other Labs: Laboratory Results - last 48 hr 03/08/20 03/08/20 03/08/20 12:20 16:20 20:23 WBC RBC Hgb Hct MCV MCH MCHC RDW Plt Count MPV Neut % (Auto) Lymph % (Auto) [place] % (Auto) Eos % (Auto) Baso % (Auto) Neut # (Auto) Lymph # (Auto) [place] # (Auto) Eos # (Auto) Baso # (Auto) Nucleated RBC % (auto) Nucleated RBCs # Sodium Potassium Chloride Carbon Dioxide Anion Gap BUN Creatinine GFR Calculation Glucose POC Glucose 106 170 Calculated Osmolality Calcium Total Bilirubin AST ALT Alkaline Phosphatase Total Protein Albumin Globulin HCG, Qual Negative 03/09/20 03/09/20 03/09/20 02:41 02:41 06:22 WBC 6.1 RBC 3.16 L Hgb 9.1 L Hct 29.1 L MCV 92.1 MCH 28.8 MCHC 31.3 RDW 14.0 Plt Count 142 MPV 9.8 Neut % (Auto) 54.9 Lymph % (Auto) 29.5 [place] % (Auto) 11.2 Eos % (Auto) 3.4 Baso % (Auto) 0.8 Neut # (Auto) 3.37 Lymph # (Auto) 1.8 [place] # (Auto) 0.7 Eos # (Auto) 0.2 Baso # (Auto) 0.1 Nucleated RBC % (auto) 0 Nucleated RBCs # 0.0 Sodium 137 Potassium 3.8 Chloride 105 Carbon Dioxide 22 Anion Gap 13.8 BUN 16 Creatinine 0.9 GFR Calculation 69.0 L Glucose 104 POC Glucose 113 Calculated Osmolality 281 L Calcium 8.5 Total Bilirubin 0.2 AST 13 ALT 9 Alkaline Phosphatase 101 Total Protein 5.9 L D Albumin 3.2 L Globulin 2.7 HCG, Qual 03/09/20 03/09/20 03/09/20 11:14 15:46 20:26 WBC RBC Hgb Hct MCV MCH MCHC RDW Plt Count MPV Neut % (Auto) Lymph % (Auto) [place] % (Auto) Eos % (Auto) Baso % (Auto) Neut # (Auto) Lymph # (Auto) [place] # (Auto) Eos # (Auto) Baso # (Auto) Nucleated RBC % (auto) Nucleated RBCs # Sodium Potassium Chloride Carbon Dioxide Anion Gap BUN Creatinine GFR Calculation Glucose POC Glucose 127 147 150 Calculated Osmolality Calcium Total Bilirubin AST ALT Alkaline Phosphatase Total Protein Albumin Globulin HCG, Qual 03/10/20 03/10/20 03/10/20 03:37 06:08 11:12 WBC 6.5 RBC 3.79 L Hgb 10.8 L Hct 34.0 L MCV 89.7 MCH 28.5 MCHC 31.8 RDW 13.8 Plt Count 300 MPV 8.8 Neut % (Auto) 61.2 Lymph % (Auto) 26.1 [place] % (Auto) 9.8 Eos % (Auto) 1.8 Baso % (Auto) 0.8 Neut # (Auto) 3.99 Lymph # (Auto) 1.7 [place] # (Auto) 0.6 Eos # (Auto) 0.1 Baso # (Auto) 0.1 Nucleated RBC % (auto) 0 Nucleated RBCs # 0.0 Sodium Potassium Chloride Carbon Dioxide Anion Gap BUN Creatinine GFR Calculation Glucose POC Glucose 112 106 Calculated Osmolality Calcium Total Bilirubin AST ALT Alkaline Phosphatase Total Protein Albumin Globulin HCG, Qual Micro: Microbiology 03/08/20 11:40 Blood Culture - Preliminary Blood NEGATIVE TO DATE 03/08/20 11:44 Blood Culture - Preliminary Blood NEGATIVE TO DATE Cardiac Studies: No Data to Display
[2020-03-10] MEDS: sodium chloride 0.9% 1,000 ML 30 ML IV (13:37)
[2020-03-10] MEDS: lidocaine 2% INJ 20 mL INJECTION (14:08)
--- NOTE | 2020-03-10 14:15 | PM.OP ---
Operative Report Date of procedure: March 10, 2020 Pre-op Diagnosis: Abscess left Below Knee amputation stump Post-op diagnosis: same Post-op Findings: 2x1.5x2.[address] to the fascia Infected hematoma Procedure Done: Incision and drainage of left below knee amputation abscess and sharp debridement of the abscess cavity the way to the muscle layer Specimens removed/disposition: Swabs fro cultures Tissues for cultures Surgeon: Dave Holley Manager Research And Development: Palma Ritter Anesthesia: MAC ([employer] Agustin) Estimated blood loss (mL): 20 Condition: stable Disposition: floor Brief History: This is a pleasant 39 years old female patient with complicated diabetes mellitus type I and ended up by left lower extremity below-knee amputation in [facility] back in July 2019, patient presented recently to the emergency department with worsening abdominal pain and was found to have a small scab at the amputation stump site where she had a CT scan that showed fluid collection concerning for an abscess, that was followed by a potential MRI but patient had claustrophobia and she ended up by getting a bone scan that showed osteomyelitis in addition to an ultrasound that showed complex fluid collection. After thorough history physical examination reviewing the chart and images with my personal interpretation I did industrial relations counselor the patient for an I&D of the fluid collection and patient understands that she is at high risk of [id number] amputation. Informed consent per chart Procedure: After identifying the patient holding area, the left lower extremity was marked before the procedure by myself, patient was then taken to the operative suite, was placed in supine position, IV antibiotics were given per protocol,IV propofol was infused by the anesthesia provider, prep and drape of the left below-knee amputation stump site. Time-out was done verifying the patient's name/date of /planned procedure and destination after the procedure, all were in agreement. A stab incision was created at the most fluctuant area of the collection and retained hematoma with debris was appreciated with retained necrotic tissues, swabs for cultures were obtained and tissues for cultures as well, sharp debridement of the abscess cavity was done all the way to the muscle layer and was very close to the bone without obvious bone exposure. Started by excising the unhealthy necrotic indurated tissues of the wound. Post I&D measurments 2x1.5x2.[address] to the fascia Infected hematoma Through Irrigation of the wound was done with warm saline, followed by appropriate hemostasis, packing of the wound was done with half inch Nu Gauze and a piece of Surgicel impregnated and lidocaine 2%, followed by ABDs, Kerlix and Miguel A wraps. Patient tolerated the procedure well, count of instruments and sponges were completed at the end of the procedure. Patient was then taken to the recovery area in stable condition. I was present for the whole entire procedure
[2020-03-10] MEDS: gabapentin 300 mg Capsule PO ×3 (15:56→21:22)
[2020-03-10] MEDS: sucralfate 1 gm Tablet PO ×2 (15:56→21:22)
[2020-03-10] MEDS: metoclopramide 10 mg Tablet PO ×3 (15:57→21:22)
--- NOTE | 2020-03-10 16:07 | NM_ITS ---
WS: [id number] THREE-PHASE BONE SCAN HISTORY: rule out osteomyelitis COMPARISON: None available. Patient is is injected with 25.1 mCi Tc99m HDP intravenously. Immediate angiographic phase imaging is performed over the area of concern. Static blood pool imaging also performed. Two-hour whole-body sc intigrams performed in anterior and posterior projections. Additional large field of view imaging sub mitted as necessary. 3 phase imaging with attention to the amputation site LEFT tibia-fibula. Moderate increased uptake in all 3 phases of the bone scan involving the stump of the LEFT tibia. Can not identify the fibula is a separate structure. Mild increased uptake at the AC joints from arthritis. Normal uptake throughout the spine and pelvis. Normal soft tissue and renal uptake. NM/NM bone 3 phase [id number] IMPRESSION: Osteomyelitis involving the amputation site of the LEFT tibia. Cannot exclude a djacent osteomyelitis involving the distal adjacent fibula.
[2020-03-10 16:49] LABS: Glucose Point of Care 123 mg/dL (70-110)
[2020-03-10] MEDS: BuSPIRONE 10 mg Tablet PO (17:35)
[2020-03-10] MEDS: lactobacillus 1 Tablet 1 TAB PO (17:35)
[2020-03-10] MEDS: sennosides-docusate Tablet 2 TAB PO (17:35)
[2020-03-10 18:35] LABS: Vancomycin Trough 12.3 ug/mL (10-15)
[2020-03-10] MEDS: sodium chloride 0.9% 1,000 ML 100 ML IV ×2 (18:39→19:21)
[2020-03-10] MEDS: vancomycin 750 MG in sodium chloride 0.9% 250 ML 166 MG IV (19:20)
[2020-03-10 21:10] LABS: Glucose Point of Care 162 mg/dL (70-110)
[2020-03-10] MEDS: insulin glargine 100 units/1 mL 5 UNIT SUBCUT (21:23)
[2020-03-11] VITALS (7 sets, daily range): BP systolic 130–154; BP diastolic 74–87; PULSE 72–82; RESP 15–18; TEMP 36.7–36.9; O2SAT 97–100
[2020-03-11] MEDS: HYDROmorphone 1 mg/mL INJ 1 mL 0.5 MG IVP (02:16)
[2020-03-11] MEDS: carvedilol 3.125 mg Tablet PO ×2 (04:11→17:00)
[2020-03-11] MEDS: heparin 5,000 unit/mL INJ 1 mL 5000 UNIT SUBCUT ×2 (04:11→17:01)
[2020-03-11] MEDS: LORazepam 2 mg/mL INJ 1 mL IVP (04:16)
[2020-03-11 04:49] LABS: Blood Urea Nitrogen 15 mg/dL (6-20); Calcium 8.2 mg/dL (8.5-10.5); Carbon Dioxide 25 mmol/L (22-29); Chloride 104 mmol/L (98-107); Glomerular Filtration Rate 54.7 mL/min (90-130); Glucose 126 mg/dL (65-115); Osmolality Calculated 280 mOsm/kg (285-295); Sodium 136 mmol/L (136-145)
[2020-03-11 05:54] LABS: Basophils # 0.1 10^3/uL (0.0-0.1); Basophils % 0.9 %; Eosinophils # 0.2 10^3/uL (0.0-0.8); Eosinophils % 3.7 %; Hematocrit 30.1 % (37.0-47.0); Hemoglobin 9.3 g/dL (11.5-15.3); Lymphocytes # 1.4 10^3/uL (0.8-4.8); Lymphocytes % 22.3 %; Mean Corpuscular HGB Conc 30.9 g/dL (30.0-36.0); Mean Corpuscular Hemoglobin 28.6 pg (28.0-34.0); Mean Corpuscular Volume 92.6 fL (81-99); Mean Platelet Volume 8.6 fL (7.4-10.4); Monocytes # 0.4 10^3/uL (0.2-0.9); Monocytes % 6.8 %; Neutrophils # 4.27 10^3/uL (1.8-7.7); Nucleated Red Blood Cells % 0 %; Platelet Count 259 10^3/cmm (130-400); Red Blood Count 3.25 10^6/uL (4.1-5.3); Red Cell Distribution Width 13.8 % (12.1-15.1); White Blood Count 6.5 10^3/uL (4.0-10.0)
[2020-03-11] MEDS: piperacillin-tazobactam 3.375 GM in sodium chloride 0.9% (plus) 50 ML IV (06:11)
[2020-03-11] MEDS: sodium chloride 0.9% 1,000 ML 100 ML IV (06:15)
--- NOTE | 2020-03-11 06:15 | PM.PN ---
Subjective Subjective: Interval history: Patient overall feels better Undergone I&D of left below-knee amputation stump site fluid collection likely infected hematoma Vitals/I&O/Wt Last Vital Signs Temp 98.3 F 03/11/20 04:00 Pulse 82 03/11/20 04:00 Resp 17 03/11/20 04:00 BP 130/74 03/11/20 04:00 Pulse Ox 99 03/11/20 04:00 03/10/20 03/10/20 03/11/20 14:59 22:59 06:59 Intake Total 50 / 50 320 / 370 1010 / 1380 Output Total 500 / 505 250 / 755 Balance 45 / 45 -180 / -135 760 / 625 Weight last 48 hrs Weight 144 lb 3.2 oz Weight 143 lb 8 oz Physical Exam Narrative: EXAM NARRATIVE: Patient is conscious alert oriented X3 BMI 21 Head and neck examination PERRLA no masses no cervical lymphadenopathy no jaundice Left below-knee amputation stump site dressing in place without complications or bleeding Dressing was taken down bedside and packing was done by me in the form of wet-to-dry half inch Nu Gauze followed by Roger Hyltonlix and Miguel A wrap Data : 03/11/20 05:50 03/11/20 04:08 Micro: Microbiology 03/10/20 14:00 Gram Stain - Final Leg - Left 03/10/20 13:59 Gram Stain - Final Leg - Left A&P Assessment and plan (1) Fluid collection at surgical site: Follow on cultures and sensitivity Daily dressing change in the form of wet-to-dry using half inch Nu Gauze packing followed by Roger Kerlix and Miguel A wrap Return to general surgery office in 1 week Assurance and education All questions have been answered and all concerns have been addressed to patient's satisfaction. Status: Acute Attestations Medical Necessity Statement*: Per hospitalist service Time Spent in Patient Care: (>than 50% of time spent in counselling and/or direct pt care on unit). 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
--- NOTE | 2020-03-11 06:27 | PC.NURSE ---
SHIFT SUMMARY Has rested well tonight. c/o being hungry all the time. No nausea this shift. Dressing/terry wrap to left stump has remained clean & dry. Only medicated X1 with IV Dilaudid. Some loose BM's tonight. Says is from laxatives given. Dr Holley in this am and will be back to change dressing later today. Pt is to have PICC line placement today
[2020-03-11 06:48] LABS: Glucose Point of Care 216 mg/dL (70-110)
[2020-03-11] MEDS: lactobacillus 1 Tablet 1 TAB PO ×2 (08:27→17:01)
[2020-03-11] MEDS: sennosides-docusate Tablet 2 TAB PO ×2 (08:27→17:02)
[2020-03-11] MEDS: polyethylene glycol 3350 Pkt 17 gm PO (08:27)
[2020-03-11] MEDS: metoclopramide 10 mg Tablet PO ×3 (08:27→17:01)
[2020-03-11] MEDS: sucralfate 1 gm Tablet PO ×2 (08:27→17:00)
[2020-03-11] MEDS: gabapentin 300 mg Capsule PO ×3 (08:27→17:01)
[2020-03-11] MEDS: BuSPIRONE 10 mg Tablet PO ×2 (08:27→17:01)
[2020-03-11] MEDS: vancomycin 750 MG in sodium chloride 0.9% 250 ML 250 MG IV (10:25)
[2020-03-11 10:52] LABS: Glucose Point of Care 123 mg/dL (70-110)
--- NOTE | 2020-03-11 12:49 | XRR_ITS ---
PROCEDURE INFORMATION: Exam: XR Chest, 1 View Exam date and time: 03/11/2020 4:14 PM Age: 39 years old Clinical indication: Device placement; Picc; Additional info: Post pic placement TECHNIQUE: Imaging protocol: XR of the chest Views: 1 view. COMPARISON: CR Chest 1 [place] [id number] 12/06/2018 3:32 AM FINDINGS: Tubes, catheters and devices: A PICC line is present on the right side extending into the SVC. Lungs: Unremarkable. No consolidation. Pleural space: Unremarkable. No pleural effusion. No pneumothorax. Heart/Mediastinum: Unremarkable. No cardiomegaly. Bones/joints: Unremarkable. XR/XR chest 1V portable [id number] IMPRESSION: A PICC line is present on the right side in good position. Negative for acute abnormality
--- NOTE | 2020-03-11 13:02 | PC.NURSE ---
iv gone bad, awaiting vickey rn to start picc line.
--- NOTE | 2020-03-11 16:44 | PM.DCS ---
Discharge Providers Date of Admission: 03/08/20 14:49 Date of Discharge: March 11, 2020 Attending Provider at Admission: Lamar Suarez MD Attending Provider at Discharge: Lamar Suarez MD Consults: General surgery, Dr. Dave Saucedo Primary Care Provider: None Diagnoses at Discharge Discharge Diagnosis (1) Cellulitis and abscess of leg: Status: Acute Problem details: -Noted to have open area along amputation site (L BKA), no active drainage -Imaging shows suspicious findings for abscesses and osteomyelitis -Received dose of vancomycin and Levaquin in ER, for now we will continue Zosyn and vancomycin, has prior history of MRSA -MRI ordered for more definitive diagnosis of osteomyelitis but unable to tolerate due to pain. Three-phase bone scan reported as osteomyelitis. US ordered as well showing findings concerning for abscess at the distal end of the left BKA stump -Surgery consult by Dr. Saucedo appreciated; s/p I & D: POD # 1 -no leukocytosis, noted ESR-23, CRP-2.1 -IVF hydration -blood cx: prelim negative; had prior blood cx (03/05) which were positive for GPC and GPRs, pending ID & sensitivity -wound cx prelim negative, anaerobic culture prelim negative, gram stain negative (2) Hypokalemia: Status: Resolved (3) Abdominal pain: Status: Acute Problem details: -Seems to be recurrent and chronic issue, multiple hospital visits and admissions for similar symptoms -Noted fecal retention on imaging -Bowel regimen -Pain control and antiemetics as needed; suspect symptom magnification and pain seeking behavior -Suspected to have gastroparesis secondary to underlying diabetes; continue Reglan -on Carafate Qualifiers: Abdominal location: right lower quadrant Qualified Code(s): R10.31 - Right lower quadrant pain (4) Type 1 diabetes mellitus: Status: Acute Problem details: -noted hx of DM type I complicated by nephropathy and neuropathy -A1c-7.5 (12/2019) -Accu-Cheks, scheduled and ISS, hypoglycemia precautions Qualifiers: Diabetes mellitus complication status: with other specified complication Qualified Code(s): E10.69 - Type 1 diabetes mellitus with other specified complication (5) Constipation: Status: Resolved Qualifiers: Constipation type: unspecified constipation type Qualified Code(s): K59.00 - Constipation, unspecified Other Information Additional DC diagnoses/information: -hx of CAD s/p stenting; hold ASA, Plavix in case of need for procedure -CKD stage 2 secondary to diabetic nephropathy, baseline Cr around 1.0, monitor renal function particularly with contrast studies and use of Zosyn and vancomycin; avoid nephrotoxins, renally dose meds, IVF hydration -s/p LLE BKA -Dyslipidemia; has not been on statin -Chronic anemia; hold iron supplementation due to constipation -HTN; VSS currently, hold low dose ACEi due to concern for possible nephrotoxicity with contrast studies Reason for Visit Reason for Visit: ABDOMINAL PAIN Hospital Course Hospital Course: Patient was admitted to the medical surgical floor and started on IV fluid hydration as well as IV antibiotics secondary to finding of cellulitis with concern for osteomyelitis and abscess with open area noted on left BKA stump. She is unable to tolerate MRI which has been ordered for more definitive evaluation so had a three-phase bone scan instead which showed continued concern for osteomyelitis. She was taken to the OR shortly thereafter and had an incision and drainage done by Dr. Holley. She has grown MRSA on previous wound cultures so would need continued coverage for this. Unfortunately since she just had the incision and drainage we do not have culture results but so far, but tissue culture is prelim negative and Gram stain is negative as well. Final cultures are pending and this will be very helpful for guiding treatment in terms of antibiotics. She has had multiple wound cultures which have been positive and recently had blood culture that is growing gram-positive cocci as well as gram-positive rods, culture was done on 03/05. Repeat cultures on 03/08 have been negative so far. At her insistence she is being discharged today. She has been instructed on wound care that will be needed which will consist of packing with half-inch Nu Gauze, applying ABD pads with Kerlix and securing with Miguel A wrap. Follow-up has been arranged with Dr. Saucedo at the surgical center in 1 week. For havasupai treatment of this is challenging as patient is uninsured. However in light of osteomyelitis she will need a 6-week course of IV antibiotics. PICC line has been placed for this purpose. Arrangements have been made for outpatient infusions of IV vancomycin which will provide appropriate MRSA coverage based on previous cultures and I have added oral Levaquin for pseudomonal coverage as well. Scripts have been sent to [facility] pharmacy to facilitate administration. She appears to be reliable so anticipate that she will be able to come to the outpatient center for her IV antibiotic infusions. She has been counseled on need to keep PICC line area clean and dressed. Case management has arranged scheduled times for the outpatient infusions which have been reiterated to patient as well. Her abdominal symptoms which she initially presented with have completely resolved and she is tolerating oral intake without difficulty. Has not required any pain medication today. Has been ambulatory with a walker this morning. Tolerated dressing change very well. This was done by Dr. Saucedo at bedside today. Primary care provider follow-up has been arranged. She has been counseled on need to seek medical attention immediately should she notice purulent drainage from the wound, increased redness, increased pain or swelling, fever/chills. Outpatient pharmacy will take care of dosing vancomycin and if any issues arise these will be handled by Dr. Holley. Discharge Summary: -Patient to follow up with Dr. Suacedo at surgery center in 1 week -Patient to receive IV vancomycin infusions twice per day at outpatient center as arranged by case management Physical Exam Const: COMMON NORMALS: no acute distress and patient oriented x3 GENERAL APPEARANCE: cooperative and comfortable ORIENTATION/CONSCIOUSNESS: Yes awake HENMT: COMMON NORMALS: normocephalic, atraumatic, hearing grossly normal bilaterally and moist oral mucous membranes HEAD & SCALP: normocephalic and atraumatic TEETH & GINGIVA: Yes poor dentition Eye: COMMON NORMALS: Equal, round and reactive pupils present, EOMs intact bilaterally and conjunctivae normal CONJUNCTIVA: Yes conjunctivae normal PUPIL: Yes Equal, round and reactive pupils present Neck/C-Spine: COMMON NORMALS: full ROM GENERAL: Yes normal visual inspection and Yes trachea midline Resp: COMMON NORMALS: normal respiratory effort, No retractions, No use of accessory muscles and clear to auscultation bilaterally EFFORT & INSPECTION: Yes able to speak in complete sentences, Yes symmetric chest movement and No tachypneic AUSCULTATION: clear to auscultation bilaterally Cardio: COMMON NORMALS: regular rate, regular rhythm, S1 normal heart sound present, S2 normal heart sound present and No murmurs present (Cardio) RATE: regular rate RHYTHM: regular rhythm HEART SOUNDS: S1 normal heart sound present and S2 normal heart sound present GI: COMMON NORMALS: Normal to inspection, nondistended, normoactive bowel sounds present, Soft to palpation and non-tender PALPATION: Yes Soft to palpation Extremity: COMMON NORMALS: no pedal edema (RLE) NARRATIVE EXTREMITY EXAM: -s/p L BKA Neuro: COMMON NORMALS: patient oriented x3, moves all extremities, no focal motor deficits and no sensory deficits noted Psych: COMMON NORMALS: mental status grossly normal, Normal thought process present, cooperative and speech normal SPEECH: Yes normal speech MOOD & AFFECT: Yes Flat affect present THOUGHT PROCESS: Normal thought process present Skin: COMMON NORMALS: no rashes or lesions noted, no jaundice, no petechiae and no mottling NARRATIVE SKIN EXAM: -L BKA stump: open discrete fishmouth wound, probes to the area just above bone, no bone exposure, wound bed cauterized, no active drainage -s/p 3rd R toe amputation, some sutures in place -s/p prior amputation of R great toe GENERAL SKIN EXAM: no rashes or lesions noted Discharge Data Data Completed and Pending: Completed Studies During Hospitalization Category Date Time Status CT abdomen pelvis w con* [id number] Stat Cat Scan 03/08/20 10:[address] lower leg LT w con [id number] Urgent Cat Scan 03/08/20 10:37 Completed NM bone 3 phase 7 [id number] Routine Nuc Med 03/10/20 16:07 Completed US soft tissue/ex tremity [id number] Rout ine Ultrasound 03/09/20 12:59 Completed Pending at discharge Category Date Time Status CXRP [XR chest 1V portable [id number]] R outine Exams 03/11/20 12:49 Taken Abscess Culture a nd Gram Stain Rout ine Lab 03/10/20 13:59 Results Anaerobic Culture Routine Lab 03/10/20 13:59 Results Blood Culture Sta t Lab 03/08/20 11:40 Results Tissue Culture an d Gram Stain Mart[facility]ne[facility] ne Lab 03/10/20 14:00 Results Labs from last 24 hours 03/11/20 03/11/20 03/11/20 10:48 06:44 05:50 WBC 6.5 Corrected WBC RBC 3.25 L Hgb 9.3 L Hct 30.1 L MCV 92.6 MCH 28.6 MCHC 30.9 RDW 13.8 Plt Count 259 MPV 8.6 Gran % Neut % (Auto) 66.0 Lymph % (Auto) 22.3 [place] % (Auto) 6.8 Eos % (Auto) 3.7 Baso % (Auto) 0.9 Neut # (Auto) 4.27 Lymph # (Auto) 1.4 [place] # (Auto) 0.4 Eos # (Auto) 0.2 Baso # (Auto) 0.1 Absolute Gran (aut o) Nucleated RBC % (a uto) 0 Nucleated RBCs # 0.0 Sodium Potassium Chloride Carbon Dioxide Anion Gap BUN Creatinine GFR Calculation Glucose POC Glucose 123 216 Calculated Osmolal ity Calcium Vancomycin Trough 03/11/20 03/11/20 03/10/20 04:08 04:08 20:48 WBC Cancelled Corrected WBC Cancelled RBC Cancelled Hgb Cancelled Hct Cancelled MCV Cancelled MCH Cancelled MCHC Cancelled RDW Cancelled Plt Count Cancelled MPV Cancelled Gran % Cancelled Neut % (Auto) Cancelled Lymph % (Auto) Cancelled Carl[place] % (Auto) Cancelled Eos % (Auto) Cancelled Baso % (Auto) Cancelled Neut # (Auto) Cancelled Lymph # (Auto) Cancelled [place] # (Auto) Cancelled Eos # (Auto) Cancelled Baso # (Auto) Cancelled Absolute Gran (aut o) Cancelled Nucleated RBC % (a uto) Cancelled Nucleated RBCs # Cancelled Sodium 136 Potassium 4.0 Chloride 104 Carbon Dioxide 25 Anion Gap 11.0 BUN 15 Creatinine 1.1 H GFR Calculation 54.7 L Glucose 126 H POC Glucose 162 Calculated Osmolal ity 280 L Calcium 8.2 L Vancomycin Trough 03/10/20 03/10/20 16:46 16:16 WBC Corrected WBC RBC Hgb Hct MCV MCH MCHC RDW Plt Count MPV Gran % Neut % (Auto) Lymph % (Auto) [place] % (Auto) Eos % (Auto) Baso % (Auto) Neut # (Auto) Lymph # (Auto) [place] # (Auto) Eos # (Auto) Baso # (Auto) Absolute Gran (aut o) Nucleated RBC % (a uto) Nucleated RBCs # Sodium Potassium Chloride Carbon Dioxide Anion Gap BUN Creatinine GFR Calculation Glucose POC Glucose 123 Calculated Osmolal ity Calcium Vancomycin Trough 12.3 Vitals: Last Vital Signs Temp 98.1 F 03/11/20 11:32 Pulse 74 03/11/20 11:32 Resp 16 03/11/20 11:32 BP 150/82 03/11/20 11:32 Pulse Ox 98 03/11/20 11:32 Discharge Plan Discharge Patient Disposition: Home Condition: Stable Prescriptions: New levofloxacin 750 mg tablet 750 mg PO DAILY 42 Days Qty: 45 RF: 0 vancomycin 750 mg recon soln 750 mg IV Q12H 42 Days Qty: 90 RF: 0 Continued gabapentin 300 mg Capsule 300 mg PO QID RF: 0 ferrous sulfate 325 mg (65 mg iron) Tablet,Delayed Release (Dr/Ec) 325 mg PO BIDWM Qty: 60 RF: 0 Carafate 1 gram Tablet 1 g PO TID RF: 0 buspirone 10 mg Tablet 10 mg PO BID RF: 0 ondansetron 4 mg tablet,disintegrating 4 mg PO Q8H PRN (Reason: Nausea) RF: 0 clopidogrel [Plavix] 75 mg Tablet 75 mg PO DAILY RF: 0 aspirin [Aspir-81] 81 mg Tablet,Delayed Release (Dr/Ec) 81 mg PO DAILY RF: 0 carvedilol 3.125 mg tablet 3.125 mg PO Q12H RF: 0 insulin lispro [Humalog U-100 Insulin] 100 unit/mL Solution See Rx Instructions .ROUTE .COMPLEX RF: 0 lisinopril 2.5 mg tablet 2.5 mg PO DAILY RF: 0 Lantus Solostar U-100 Insulin 100 unit/mL (3 mL) Insulin Pen 5 unit SUBCUT BEDTIME RF: 0 metoclopramide HCl [Reglan] 10 mg tablet 10 mg PO QID 7 Days Qty: 28 RF: 0 Discharge Orders: Discharge Order (Routine); Ordered 03/11/20 Ordered By: Lamar Suarez Referrals: Judy Mendoza [Other] - 03/11/20 1:30 pm (Please bring any proof of income. ) [facility] Outpatient Surgery Department [Other] - 6 Weeks (You will need to come to [facility] Outpatient Surgery department for your morning and evening dose of IV medication. You will come to the ER and check in there, then they will show you to Outpatient Surgery. You are scheduled for 7:00 AM and 7:00 PM.) Dave Holley MD [Physician] - (Return to general surgery office in 1 week. Call Saturday to establish an appointment with Dr. Holley office [phone] in 1 week. Card given to patient.) Discharge Diet: Diabetic Discharge Activity: Limit activity as instructed Patient Instructions: Cellulitis, Vancomycin (Injection), Levofloxacin (By mouth), Hypokalemia Activity Restrictions/Additional Instructions: Avoid pressure at the left below-knee amputation stump site Daily dressing change in the form of packing with half inch Nu Gauze wet-to-dry followed by CHITO Maldonado and Diabetes teaching and education Establish primary care provider service Assurance and education All questions have been answered and all concerns have been addressed to patient's satisfaction. Discharge Attestations Time Spent in Discharge Care*: greater than 30 min Specific Discharge Activities: Specific discharge activities: educating patient, discussing with pcp/other providers, discussing with case management director/social workers/dc planners, documenting/other paperwork and evaluating patient/reviewing data Status at Discharge: Cognitive status at discharge: cognitively intact, Behavioral status at discharge: cooperative, Functional status at discharge: uses cane/walker Overall status at discharge: patient is progressing back to baseline Quality Metrics Clinical Quality Measures During this hospital stay, did patient experience: None 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 Code Acute Utility Operator for [facility] Fwd Exam Comprehensive Diagnoses Cellulitis and abscess of leg L03.119; L02.419 Hypokalemia E87.6 Abdominal pain R10.31 Abdominal location: right lower quadrant Type 1 diabetes mellitus E10.69 Diabetes mellitus complication status: with other specified complication Constipation K59.00 Constipation type: unspecified constipation type
[2020-03-11 17:27] LABS: Glucose Point of Care 161 mg/dL (70-110)
--- NOTE | 2020-03-15 16:35 | PC.SOCIAL ---
Patient returned to ED Twice one on 03/13/2020 and today. Was asked to stay in outpatient until her scheduled Vanc infusion. Still not feeling well. This nurse asked Dr Friedman to go see her due to having ongoing nausea. Updated Nurse Ritu in outpatient. In addition, noticed that patient primary care appointment from this visit had been scheduled on 03/11 which was the same day as discharge and she did not leave until 6pm that day. Called [facility] in [place] and explained this is why patient did not make appt. Gave the patient the number for this clinic and address. Advised her to call to schedule new appointment and stressed the importance of establishing care for ongoing needs. No further questions voiced and she nodded her and in agreement. Ritu was present during conversation.
== END 2020-03-11 18:18 | disposition home or self-care (01) | DRG 623 ==
LOC: ER 14:16 → MEDSURG 14:49
PROVIDERS: Surgery; Admitting Provider Family Medicine; Emergency Provider Family Medicine; Visit Provider Family Medicine
PROC: 0KBT0ZZ Excision of Left Lower Leg Muscle, Open Approach (ICD-10-PCS; principal; 2020-03-10 13:30)
DX: E10.69 Type 1 diabetes mellitus with other specified complication (principal); M86.8X6 Other osteomyelitis, lower leg; L03.116 Cellulitis of left lower limb; L02.416 Cutaneous abscess of left lower limb; Z89.512 Acquired absence of left leg below knee; E87.6 Hypokalemia; N18.2 Chronic kidney disease, stage 2 (mild); E10.22 Type 1 diabetes mellitus with diabetic chronic kidney disease; D63.1 Anemia in chronic kidney disease; I12.9 Hypertensive chronic kidney disease with stage 1 through stage 4 chronic kidney disease, or unspecified chronic kidney disease; E78.5 Hyperlipidemia, unspecified; I25.10 Atherosclerotic heart disease of native coronary artery without angina pectoris; Z95.5 Presence of coronary angioplasty implant and graft; K59.00 Constipation, unspecified; E10.21 Type 1 diabetes mellitus with diabetic nephropathy; E10.40 Type 1 diabetes mellitus with diabetic neuropathy, unspecified; Z79.82 Long term (current) use of aspirin; Z79.02 Long term (current) use of antithrombotics/antiplatelets; E10.43 Type 1 diabetes mellitus with diabetic autonomic (poly)neuropathy; K31.84 Gastroparesis
CPT/HCPCS: 12345; 36415; 36416; 36569; 71045; 73701; 74177; 76882; 78315; 80048; 80053; 80202; 81001; 81003; 81025; 82962; 83690; 85025; 85651; 86140; 87040; 87070; 87075; 87176; 87205; 96372; 96375; 99283; A9561; J1170; J1644; J1815 ×2; J1956; J2060; J2405; J2543; J2704; J3010; J3370; J3480; J7030; J7050; J8597; Q9967

== ENCOUNTER 2020-03-13 03:55 | Emergency (ER) | payer SELFPAY ==
[2020-03-13 03:57] VITALS: BP 178/98; PULSE 84; RESP 16; TEMP 36.7; O2SAT 100; BMI 20.7
[2020-03-13 04:27] VITALS: RESP 18; O2SAT 98
[2020-03-13] MEDS: fentaNYL 50 mcg/mL INJ 2mL 100 MCG IVP ×2 (04:27→06:08)
[2020-03-13] MEDS: sodium chloride 0.9% 1,000 ML 999 ML IV (04:27)
[2020-03-13 04:33] VITALS: BP 160/101; PULSE 68; RESP 18; O2SAT 97
--- NOTE | 2020-03-13 04:53 | CTR_ITS ---
PROCEDURE INFORMATION: Exam: CT Abdomen And Pelvis Without Contrast Exam date and time: 03/13/2020 5:03 AM Age: 39 years old Clinical indication: Abdominal pain; Flank; Right; Additional info: R flank pain TECHNIQUE: Imaging protocol: Computed tomography of the abdomen and pelvis without contrast. Radiation optimization: All CT scans at this facility use at least one of these dose optimization techniques: automated exposure control; mA and/or kV adjustment per patient size (includes targeted exams where dose is matched to clinical indication); or iterative reconstruction. COMPARISON: CT abdomen pelvis w con* [id number] 03/08/2020 10:54 AM RADIATION DOSE METRICS: Total DLP (mGy-cm): 1056.29 FINDINGS: Liver: Normal. No mass. Gallbladder and bile ducts: Status post cholecystectomy. Pancreas: Normal. No ductal dilation. Spleen: Normal. No splenomegaly. Adrenals: Normal. No mass. Kidneys and ureters: Normal. No hydronephrosis. Stomach and bowel: There are nondilated fluid-filled loops of small bowel present containing some air-fluid levels and some fluid seen within the colon and rectal vault, findings suggesting a diffuse enteritis. Appendix: No evidence of appendicitis. Intraperitoneal space: Unremarkable. No free air. No significant fluid collection. Vasculature: Unremarkable. No abdominal aortic aneurysm. Lymph nodes: Unremarkable. No enlarged lymph nodes. Bladder: Unremarkable as visualized. Reproductive: Unremarkable as visualized. Bones/joints: Unremarkable. No acute fracture. Soft tissues: Unremarkable. CT/CT kidney stone [id number] IMPRESSION: Fluid present within nondilated loops of small bowel and within the colon and rectal vault, findings could represent a diffuse enteritis. Radiation Dose CTDIVOL = (mGy): DLP = 1056.29 (mGy-cm)
[2020-03-13] MEDS: ondansetron 2 mg/ML SDV 2 mL 4 MG IVP (05:00)
--- NOTE | 2020-03-13 05:23 | ED_ITS ---
Documented by User: Pablito Perry DO 03/13/20 06:38 HPI - Abdominal Pain General: Chief Complaint: Abdominal Pain Stated Complaint: ABDOMINAL PAIN Time Seen by Provider: 03/13/20 04:10 History of Present Illness: HPI narrative: 39-year-old female diabetic with a recent incision and drainage of an abscess of her left BKA stump presents with right-sided flank pain. She complains of pain radiating from her right lower pelvis into her groin. It is worse with movement. She is nauseated. She vomited once. The pain woke her from sleep. MD elicited complaint: abdominal pain and flank pain Pertinent past history: none Onset (ago): hour(s) Pain Consistency: constant Location: R flank Severity: moderate Migration to: no migration Exacerbating factors: nothing Relieving factors: movement Associated Symptoms: Reports nausea and vomiting; Denies chills, diarrhea, dysuria, fever(s), hematuria and loose stools Related Data: Date of Last Menstrual Period: 07/24/18 Review of Systems Const: Denies: fever(s) or chills Eyes: Denies: change in vision or blurry vision ENMT: Denies: swelling of lips/tongue, bleeding gums, dental pain, change in hearing, epistaxis, post nasal drip or sinus pain Card: Denies: chest pain, palpitations, irregular heart rhythm, edema, swelling of feet/ankles, dyspnea on exertion or orthopnea Resp: Denies: dyspnea, productive cough, non-productive cough or wheezing GI: Reports: nausea and vomiting; Denies: diarrhea : Denies: dysuria, urinary frequency or hematuria Musc: Denies: neck pain or back pain Skin/Breast: Denies: rash, pruritus or erythema Neuro: Denies: headache(s), dizziness or vertigo Psych: Denies: anxiety PFSH ED PFSH: Medical History (Updated 03/13/20 @ 07:31 by Jordan Collier DO) CKD (chronic kidney disease) stage 2, GFR 60-89 ml/min -secondary to diabetic nephropathy -baseline Cr is around 1.0 Coronary artery disease -hx of CAD s/p stenting Diabetes mellitus type 1 Diabetic gastroparesis -secondary to DM type I Foot osteomyelitis, right Hyperlipidemia Type 1 diabetes mellitus -noted hx of DM type I complicated by nephropathy and neuropathy -A1c-7.5 (12/2019) -Accu-Cheks, scheduled and ISS, hypoglycemia precautions Surgical History Below-knee amputation of left lower extremity H/O exploratory laparotomy x 3 History of amputation of right forefoot Previous section x 3 S/P coronary artery stent placement x 1 S/P percutaneous endoscopic gastrostomy (PEG) tube placement Family History Unknown Diabetes extensive, type II Other CHF (congestive heart failure) Social History Smoking and tobacco status: former smoker Quit status (tobacco): has quit using tobacco Former quit date comment: 15 yrs ago Alcohol intake: former Former alcohol use details: 15 yrs ago Household members: spouse Marital status: Sexually active: Yes (1, ) Female Reproductive History: Date of last menstrual period: 07/24/18 Physical Exam Const: GENERAL APPEARANCE: well developed ORIENTATION/CONSCIOUSNESS: Yes oriented to person, Yes oriented to place and Yes oriented to time HENMT: COMMON NORMALS: normocephalic, external ears normal and Normal external nose present HEAD & SCALP: normocephalic FACE & SINUS: facial exam not normal NOSE: Normal external nose present and No nasal discharge present EXTERNAL EAR: Yes external ears normal THROAT: posterior oropharynx normal; no peritonsillar mass Eye: COMMON NORMALS: Equal, round and reactive pupils present, EOMs intact bilaterally and conjunctivae normal EYELID: eyelids normal CONJUNCTIVA: Yes conjunctivae normal PUPIL: Yes Equal, round and reactive pupils present Neck/C-Spine: GENERAL: No tracheal deviation Chest: COMMONS NORMALS: normal inspection of the chest CHEST: No tenderness Resp: COMMON NORMALS: clear to auscultation bilaterally EFFORT & INSPECTION: No tachypneic, No respiratory distress, No retractions, No uses accessory muscles and No tracheal deviation AUSCULTATION: clear to auscultation bilaterally, no rhonchi, no wheezes and lung sounds not diminished Cardio: COMMON NORMALS: regular rate and regular rhythm RATE: regular rate RHYTHM: regular rhythm HEART SOUNDS: no murmurs PERIPHERAL PULSES: radial pulses present GI: INSPECTION: No abdominal distension AUSCULTATION: No Hyperactive bowel sounds present and No Hypoactive bowel sounds present PALPATION: No Guarding due to palpation present (GI), No Rigid due to palpation and Yes Other GI palpation findings present (Right lower quadrant and right flank pain. Mild bed shake tenderness.) PERCUSSION: no dullness to percussion and no tympanic to percussion Neuro: SENSORIUM/ORIENTATION: Yes oriented to person, Yes oriented to place and Yes oriented to time Psych: COMMON NORMALS: mental status grossly normal Skin: COMMON NORMALS: no rashes or lesions noted GENERAL SKIN EXAM: no rashes or lesions noted Course Vital Signs: Vital signs: Vital Signs Temperature 98.1 F 03/13/20 03:57 Pulse Rate 83 03/13/20 06:10 Respiratory Rate 18 03/13/20 06:10 Blood Pressure 147/96 03/13/20 06:10 Pulse Oximetry 97 03/13/20 06:10 MDM - Abdominal Pain MDM Narrative: Medical decision making narrative: 39-year-old female with right lower quadrant/right flank pain. She has been treated recently for osteomyelitis of her left BKA stump. That wound actually looks quite good. Her white blood cell count is 8.4. Her other laboratory is benign. She does have a hemoglobin of 10. We are awaiting urinalysis results as well as a CT renal stone. She will be checked out to Dr. Han pending these results at shift change. Lab Data: Labs: Lab Results 03/13/20 03/13/20 03/13/20 Range/Units 04:10 04:10 04:10 WBC 8.4 (4.0-10.0) 10^3/ uL RBC 3.57 L (4.1-5.3) 10^6/u L Hgb 10.1 L (11.5-15.3) g/dL Hct 32.7 L (37.0-47.0) % MCV 91.6 (81-99) fL MCH 28.3 (28.0-34.0) pg MCHC 30.9 (30.0-36.0) g/dL RDW 14.3 (12.1-15.1) % Plt Count 346 (130-400) 10^3/c mm MPV 9.3 (7.4-10.4) fL Neut % (Auto) 71.6 % Lymph % (Auto) 15.7 % Canadian % (Auto) 7.0 % Eos % (Auto) 3.8 % Baso % (Auto) 0.7 % Neut # (Auto) 6.02 (1.8-7.7) 10^3/u L Lymph # (Auto) 1.3 (0.8-4.8) 10^3/u L Canadian # (Auto) 0.6 (0.2-0.9) 10^3/u L Eos # (Auto) 0.3 (0.0-0.8) 10^3/u L Baso # (Auto) 0.1 (0.0-0.1) 10^3/u L Nucleated RBC % (a uto) 0 % Nucleated RBCs # 0.0 /100WBC Sodium 136 (136-145) mmol/L Potassium 4.3 (3.5-5.1) mmol/L Chloride 104 (98-107) mmol/L Carbon Dioxide 23 (22-29) mmol/L Anion Gap 13.3 (5-19) BUN 14 (6-20) mg/dL Creatinine 0.8 (0.5-0.9) mg/dL GFR Calculation 79.0 L (90-130) mL/min Glucose 120 H (65-115) mg/dL Calculated Osmolal ity 279 L (285-295) mOsm/k g Lactate 1.2 (0.5-2.2) mmol/L Calcium 9.7 (8.5-10.5) mg/dL Total Bilirubin 0.2 (0.15-1.2) mg/dL AST 28 (0-32) U/L ALT 21 (0-33) U/L Alkaline Phosphata se 119 H (35-105) IU/L Total Protein 7.3 (6.6-8.7) g/dL Albumin 4.3 (3.5-5.2) g/dL Globulin 3.0 (1.3-4.6) g/dL Lipase 58 (13-60) U/L HCG, Qual (Negative) Urine Color (Yellow) Urine Appearance (CLEAR) Urine pH (5-7) Ur Specific Gravit y (1.005-1.030) Urine Protein (Negative) Urine Glucose (UA) (Normal) Urine Ketones (Negative) Urine Blood (Negative) Urine Nitrate (Negative) Urine Bilirubin (NEGATIVE) Urine Urobilinogen (Negative) mg/dL Ur Leukocyte Estephania ase (Negative) Urine RBC (0-2) /hpf Urine WBC (0-5) /hpf Ur Squamous Epith Cells (0-5) Ur Transition Epit h Cell /hpf Amorphous Sediment Urine Bacteria (NONE) 03/13/20 03/13/20 Range/Units 04:10 05:38 WBC (4.0-10.0) 10^3/ uL RBC (4.1-5.3) 10^6/u L Hgb (11.5-15.3) g/dL Hct (37.0-47.0) % MCV (81-99) fL MCH (28.0-34.0) pg MCHC (30.0-36.0) g/dL RDW (12.1-15.1) % Plt Count (130-400) 10^3/c mm MPV (7.4-10.4) fL Neut % (Auto) % Lymph % (Auto) % Canadian % (Auto) % Eos % (Auto) % Baso % (Auto) % Neut # (Auto) (1.8-7.7) 10^3/u L Lymph # (Auto) (0.8-4.8) 10^3/u L Canadian # (Auto) (0.2-0.9) 10^3/u L Eos # (Auto) (0.0-0.8) 10^3/u L Baso # (Auto) (0.0-0.1) 10^3/u L Nucleated RBC % (a uto) % Nucleated RBCs # /100WBC Sodium (136-145) mmol/L Potassium (3.5-5.1) mmol/L Chloride (98-107) mmol/L Carbon Dioxide (22-29) mmol/L Anion Gap (5-19) BUN (6-20) mg/dL Creatinine (0.5-0.9) mg/dL GFR Calculation (90-130) mL/min Glucose (65-115) mg/dL Calculated Osmolal ity (285-295) mOsm/k g Lactate (0.5-2.2) mmol/L Calcium (8.5-10.5) mg/dL Total Bilirubin (0.15-1.2) mg/dL AST (0-32) U/L ALT (0-33) U/L Alkaline Phosphata se (35-105) IU/L Total Protein (6.6-8.7) g/dL Albumin (3.5-5.2) g/dL Globulin (1.3-4.6) g/dL Lipase (13-60) U/L HCG, Qual Negative (Negative) Urine Color Straw (Yellow) Urine Appearance Clear (CLEAR) Urine pH 5 (5-7) Ur Specific Gravit y 1.010 (1.005-1.030) Urine Protein 1+ H (Negative) Urine Glucose (UA) Norm (Normal) Urine Ketones Negative (Negative) Urine Blood Neg (Negative) Urine Nitrate Negative (Negative) Urine Bilirubin Neg (NEGATIVE) Urine Urobilinogen Norm (Negative) mg/dL Ur Leukocyte Estephania ase Negative (Negative) Urine RBC None (0-2) /hpf Urine WBC 0-4 H (0-5) /hpf Ur Squamous Epith Cells 0-4 H (0-5) Ur Transition Epit h Cell Rare /hpf Amorphous Sediment Not Reportable Urine Bacteria Trace (NONE) Discharge Plan Discharge Patient Disposition: Home Clinical Impression: Gastroenteritis Abdominal pain Qualifiers: Abdominal location: right lower quadrant Qualified Code(s): R10.31 - Right lower quadrant pain Condition: Stable Prescriptions: New dicyclomine 10 mg capsule 10 mg PO QID Qty: 20 RF: 0 ondansetron 4 mg tablet,disintegrating 4 mg PO Q6H PRN (Reason: nausea and vomiting) Qty: 10 RF: 0 No Action gabapentin 300 mg Capsule 300 mg PO QID RF: 0 ferrous sulfate 325 mg (65 mg iron) Tablet,Delayed Release (Dr/Ec) 325 mg PO BIDWM Qty: 60 RF: 0 sucralfate [Carafate] 1 gram Tablet 1 g PO TID RF: 0 buspirone 10 mg Tablet 10 mg PO BID RF: 0 ondansetron 4 mg tablet,disintegrating 4 mg PO Q8H PRN (Reason: Nausea) RF: 0 levofloxacin 750 mg tablet 750 mg PO DAILY 42 Days Qty: 45 RF: 0 vancomycin 750 mg recon soln 750 mg IV Q12H 42 Days Qty: 90 RF: 0 clopidogrel [Plavix] 75 mg Tablet 75 mg PO DAILY RF: 0 aspirin [Aspir-81] 81 mg Tablet,Delayed Release (Dr/Ec) 81 mg PO DAILY RF: 0 carvedilol 3.125 mg tablet 3.125 mg PO Q12H RF: 0 insulin lispro [Humalog U-100 Insulin] 100 unit/mL Solution See Rx Instructions .ROUTE .COMPLEX RF: 0 lisinopril 2.5 mg tablet 2.5 mg PO DAILY RF: 0 Lantus Solostar U-100 Insulin 100 unit/mL (3 mL) Insulin Pen 5 unit SUBCUT BEDTIME RF: 0 Discharge Orders: Discharge Order (Routine); Ordered 03/13/20 Ordered By: Jordan Collier Patient Instructions: Cholecystitis (ED), Abdominal Pain (ED) Sign Out Sign Out Data: Patient Sign Out occurred on 03/13/20 at 07:26. Patient's care was discussed, and care was transferred from to Jordan Collier. 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 Code ED Iron 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 Documented by User: Jordan Collier DO 03/13/20 07:32 HPI - Abdominal Pain General: Chief Complaint: Abdominal Pain Stated Complaint: ABDOMINAL PAIN Time Seen by Provider: 03/13/20 04:10 [facility] ED PFSH: Medical History (Updated 03/13/20 @ 07:31 by Jordan Collier DO) CKD (chronic kidney disease) stage 2, GFR 60-89 ml/min -secondary to diabetic nephropathy -baseline Cr is around 1.0 Coronary artery disease -hx of CAD s/p stenting Diabetes mellitus type 1 Diabetic gastroparesis -secondary to DM type I Foot osteomyelitis, right Hyperlipidemia Type 1 diabetes mellitus -noted hx of DM type I complicated by nephropathy and neuropathy -A1c-7.5 (12/2019) -Accu-Cheks, scheduled and ISS, hypoglycemia precautions Surgical History Below-knee amputation of left lower extremity H/O exploratory laparotomy x 3 History of amputation of right forefoot Previous section x 3 S/P coronary artery stent placement x 1 S/P percutaneous endoscopic gastrostomy (PEG) tube placement Family History Unknown Diabetes extensive, type II Other CHF (congestive heart failure) Social History Smoking and tobacco status: former smoker Quit status (tobacco): has quit using tobacco Former quit date comment: 15 yrs ago Alcohol intake: former Former alcohol use details: 15 yrs ago Household members: spouse Marital status: Sexually active: Yes (1, ) Course Vital Signs: Vital signs: Vital Signs Temperature 98.1 F 03/13/20 03:57 Pulse Rate 83 03/13/20 06:10 Respiratory Rate 18 03/13/20 06:10 Blood Pressure 147/96 03/13/20 06:10 Pulse Oximetry 97 03/13/20 06:10 MDM - Abdominal Pain Lab Data: Labs: Lab Results 03/13/20 03/13/20 03/13/20 Range/Units 04:10 04:10 04:10 WBC 8.4 (4.0-10.0) 10^3/ uL RBC 3.57 L (4.1-5.3) 10^6/u L Hgb 10.1 L (11.5-15.3) g/dL Hct 32.7 L (37.0-47.0) % MCV 91.6 (81-99) fL MCH 28.3 (28.0-34.0) pg MCHC 30.9 (30.0-36.0) g/dL RDW 14.3 (12.1-15.1) % Plt Count 346 (130-400) 10^3/c mm MPV 9.3 (7.4-10.4) fL Neut % (Auto) 71.6 % Lymph % (Auto) 15.7 % Canadian % (Auto) 7.0 % Eos % (Auto) 3.8 % Baso % (Auto) 0.7 % Neut # (Auto) 6.02 (1.8-7.7) 10^3/u L Lymph # (Auto) 1.3 (0.8-4.8) 10^3/u L Canadian # (Auto) 0.6 (0.2-0.9) 10^3/u L Eos # (Auto) 0.3 (0.0-0.8) 10^3/u L Baso # (Auto) 0.1 (0.0-0.1) 10^3/u L Nucleated RBC % (a uto) 0 % Nucleated RBCs # 0.0 /100WBC Sodium 136 (136-145) mmol/L Potassium 4.3 (3.5-5.1) mmol/L Chloride 104 (98-107) mmol/L Carbon Dioxide 23 (22-29) mmol/L Anion Gap 13.3 (5-19) BUN 14 (6-20) mg/dL Creatinine 0.8 (0.5-0.9) mg/dL GFR Calculation 79.0 L (90-130) mL/min Glucose 120 H (65-115) mg/dL Calculated Osmolal ity 279 L (285-295) mOsm/k g Lactate 1.2 (0.5-2.2) mmol/L Calcium 9.7 (8.5-10.5) mg/dL Total Bilirubin 0.2 (0.15-1.2) mg/dL AST 28 (0-32) U/L ALT 21 (0-33) U/L Alkaline Phosphata se 119 H (35-105) IU/L Total Protein 7.3 (6.6-8.7) g/dL Albumin 4.3 (3.5-5.2) g/dL Globulin 3.0 (1.3-4.6) g/dL Lipase 58 (13-60) U/L HCG, Qual (Negative) Urine Color (Yellow) Urine Appearance (CLEAR) Urine pH (5-7) Ur Specific Gravit y (1.005-1.030) Urine Protein (Negative) Urine Glucose (UA) (Normal) Urine Ketones (Negative) Urine Blood (Negative) Urine Nitrate (Negative) Urine Bilirubin (NEGATIVE) Urine Urobilinogen (Negative) mg/dL Ur Leukocyte Estephania ase (Negative) Urine RBC (0-2) /hpf Urine WBC (0-5) /hpf Ur Squamous Epith Cells (0-5) Ur Transition Epit h Cell /hpf Amorphous Sediment Urine Bacteria (NONE) 03/13/20 03/13/20 Range/Units 04:10 05:38 WBC (4.0-10.0) 10^3/ uL RBC (4.1-5.3) 10^6/u L Hgb (11.5-15.3) g/dL Hct (37.0-47.0) % MCV (81-99) fL MCH (28.0-34.0) pg MCHC (30.0-36.0) g/dL RDW (12.1-15.1) % Plt Count (130-400) 10^3/c mm MPV (7.4-10.4) fL Neut % (Auto) % Lymph % (Auto) % Canadian % (Auto) % Eos % (Auto) % Baso % (Auto) % Neut # (Auto) (1.8-7.7) 10^3/u L Lymph # (Auto) (0.8-4.8) 10^3/u L Canadian # (Auto) (0.2-0.9) 10^3/u L Eos # (Auto) (0.0-0.8) 10^3/u L Baso # (Auto) (0.0-0.1) 10^3/u L Nucleated RBC % (a uto) % Nucleated RBCs # /100WBC Sodium (136-145) mmol/L Potassium (3.5-5.1) mmol/L Chloride (98-107) mmol/L Carbon Dioxide (22-29) mmol/L Anion Gap (5-19) BUN (6-20) mg/dL Creatinine (0.5-0.9) mg/dL GFR Calculation (90-130) mL/min Glucose (65-115) mg/dL Calculated Osmolal ity (285-295) mOsm/k g Lactate (0.5-2.2) mmol/L Calcium (8.5-10.5) mg/dL Total Bilirubin (0.15-1.2) mg/dL AST (0-32) U/L ALT (0-33) U/L Alkaline Phosphata se (35-105) IU/L Total Protein (6.6-8.7) g/dL Albumin (3.5-5.2) g/dL Globulin (1.3-4.6) g/dL Lipase (13-60) U/L HCG, Qual Negative (Negative) Urine Color Straw (Yellow) Urine Appearance Clear (CLEAR) Urine pH 5 (5-7) Ur Specific Gravit y 1.010 (1.005-1.030) Urine Protein 1+ H (Negative) Urine Glucose (UA) Norm (Normal) Urine Ketones Negative (Negative) Urine Blood Neg (Negative) Urine Nitrate Negative (Negative) Urine Bilirubin Neg (NEGATIVE) Urine Urobilinogen Norm (Negative) mg/dL Ur Leukocyte Estephania ase Negative (Negative) Urine RBC None (0-2) /hpf Urine WBC 0-4 H (0-5) /hpf Ur Squamous Epith Cells 0-4 H (0-5) Ur Transition Epit h Cell Rare /hpf Amorphous Sediment Not Reportable Urine Bacteria Trace (NONE) Discharge Plan Discharge Patient Disposition: Home Clinical Impression: Gastroenteritis Abdominal pain Qualifiers: Abdominal location: right lower quadrant Qualified Code(s): R10.31 - Right lower quadrant pain Condition: Stable Prescriptions: New dicyclomine 10 mg capsule 10 mg PO QID Qty: 20 RF: 0 ondansetron 4 mg tablet,disintegrating 4 mg PO Q6H PRN (Reason: nausea and vomiting) Qty: 10 RF: 0 No Action gabapentin 300 mg Capsule 300 mg PO QID RF: 0 ferrous sulfate 325 mg (65 mg iron) Tablet,Delayed Release (Dr/Ec) 325 mg PO BIDWM Qty: 60 RF: 0 sucralfate [Carafate] 1 gram Tablet 1 g PO TID RF: 0 buspirone 10 mg Tablet 10 mg PO BID RF: 0 ondansetron 4 mg tablet,disintegrating 4 mg PO Q8H PRN (Reason: Nausea) RF: 0 levofloxacin 750 mg tablet 750 mg PO DAILY 42 Days Qty: 45 RF: 0 vancomycin 750 mg recon soln 750 mg IV Q12H 42 Days Qty: 90 RF: 0 clopidogrel [Plavix] 75 mg Tablet 75 mg PO DAILY RF: 0 aspirin [Aspir-81] 81 mg Tablet,Delayed Release (Dr/Ec) 81 mg PO DAILY RF: 0 carvedilol 3.125 mg tablet 3.125 mg PO Q12H RF: 0 insulin lispro [Humalog U-100 Insulin] 100 unit/mL Solution See Rx Instructions .ROUTE .COMPLEX RF: 0 lisinopril 2.5 mg tablet 2.5 mg PO DAILY RF: 0 Lantus Solostar U-100 Insulin 100 unit/mL (3 mL) Insulin Pen 5 unit SUBCUT BEDTIME RF: 0 Discharge Orders: Discharge Order (Routine); Ordered 03/13/20 Ordered By: Jordan Collier Patient Instructions: Cholecystitis (ED), Abdominal Pain (ED) Sign Out Sign Out Data: Patient Sign Out occurred on 03/13/20 at 07:26. Patient's care was discussed, and care was transferred from to Jordan Collier. 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 Code ED Iron Installer for Tracig Fwd Exam Comprehensive
[2020-03-13 05:42] LABS: Basophils # 0.1 10^3/uL (0.0-0.1); Basophils % 0.7 %; Eosinophils # 0.3 10^3/uL (0.0-0.8); Eosinophils % 3.8 %; Hematocrit 32.7 % (37.0-47.0); Hemoglobin 10.1 g/dL (11.5-15.3); Lymphocytes # 1.3 10^3/uL (0.8-4.8); Lymphocytes % 15.7 %; Mean Corpuscular HGB Conc 30.9 g/dL (30.0-36.0); Mean Corpuscular Hemoglobin 28.3 pg (28.0-34.0); Mean Corpuscular Volume 91.6 fL (81-99); Mean Platelet Volume 9.3 fL (7.4-10.4); Monocytes # 0.6 10^3/uL (0.2-0.9); Neutrophils # 6.02 10^3/uL (1.8-7.7); Neutrophils % 71.6 %; Nucleated Red Blood Cells % 0 %; Platelet Count 346 10^3/cmm (130-400); Red Blood Count 3.57 10^6/uL (4.1-5.3); Red Cell Distribution Width 14.3 % (12.1-15.1); White Blood Count 8.4 10^3/uL (4.0-10.0)
[2020-03-13 05:55] LABS: Lactate (Lactic Acid level) 1.2 mmol/L (0.5-2.2)
[2020-03-13 05:56] LABS: Alanine Aminotransferase 21 U/L (0-33); Albumin Level 4.3 g/dL (3.5-5.2); Alkaline Phosphatase 119 IU/L (35-105); Anion Gap 13.3 (5-19); Aspartate Amino Transferase 28 U/L (0-32); Blood Urea Nitrogen 14 mg/dL (6-20); Calcium 9.7 mg/dL (8.5-10.5); Carbon Dioxide 23 mmol/L (22-29); Chloride 104 mmol/L (98-107); Glucose 120 mg/dL (65-115); Lipase 58 U/L (13-60); Osmolality Calculated 279 mOsm/kg (285-295); Potassium 4.3 mmol/L (3.5-5.1); Sodium 136 mmol/L (136-145); Total Bilirubin 0.2 mg/dL (0.15-1.2); Total Protein 7.3 g/dL (6.6-8.7)
[2020-03-13 06:08] VITALS: RESP 18; O2SAT 98
[2020-03-13 06:10] VITALS: BP 147/96; PULSE 83; RESP 18; O2SAT 97
[2020-03-13 06:10] LABS: HCG, Serum Qual Negative (Negative)
[2020-03-13 06:33] LABS: Glucose Urine UA Norm (Normal); Protein Urine 1+ (Negative); Urine Appearance Clear (CLEAR); Urine Color Straw (Yellow); pH Urine 5 (5-7)
[2020-03-13 06:34] LABS: Add Urine Culture? No; Add Urine Microscopic? YES; Bacteria Urine TRACE; Bilirubin Urine Neg (NEGATIVE); Blood Urine Neg (Negative); Ketones Urine Negative (Negative); Leukocyte Esterase Urine Negative (Negative); Nitrate Urine Negative (Negative); Squamous Epithelial Cell Urine 0-4 (0-5); Transitional Epi Cells Urine RARE /hpf; Urobilinogen Urine Norm (Negative); WBC Urine 0-4 /hpf (0-5)
[2020-03-13 07:37] VITALS: BP 145/75; PULSE 70; RESP 15; O2SAT 98
[2020-03-13 12:09] LABS: C Reactive Protein 2.6 mg/L (0.0-4.9)
== END 2020-03-13 07:37 | disposition home or self-care (01) ==
PROVIDERS: Emergency Medicine; Emergency Provider Family Medicine
DX: K52.9 Noninfective gastroenteritis and colitis, unspecified (principal); Z79.02 Long term (current) use of antithrombotics/antiplatelets; Z79.82 Long term (current) use of aspirin; Z79.4 Long term (current) use of insulin; E10.22 Type 1 diabetes mellitus with diabetic chronic kidney disease; N18.2 Chronic kidney disease, stage 2 (mild); I25.10 Atherosclerotic heart disease of native coronary artery without angina pectoris; E78.5 Hyperlipidemia, unspecified; Z89.512 Acquired absence of left leg below knee; Z87.891 Personal history of nicotine dependence
CPT/HCPCS: 12345; 74176; 80053; 81001; 81003; 83605; 83690; 84703; 85025; 86140; 96360; 96361; 96374; 96375; 96376; 99283; J2405; J3010; J7030

== ENCOUNTER 2020-03-15 08:04 | Emergency (ER) | payer SELFPAY ==
[2020-03-15 08:12] VITALS: BP 206/129; PULSE 113; RESP 20; TEMP 36.6; O2SAT 100; BMI 20.7
--- NOTE | 2020-03-15 08:19 | ECG_ITS ---
[facility] Test Date: 2020-03-15 Pat Name: Cherrie Solomon Department: Room: Gender: Female Line Service Attendant: : 1980 Requested By: Adama Clancy Order Number: [id number] Jeff MD: Gracia Phillips M.D. Measurements Intervals [place] Rate: 108 P: 53 TN: 170 QRS: 18 QRSD: 74 T: 72 QT: 294 QTc: 395 Interpretive Statements SINUS TACHYCARDIA WITH OCCASIONAL VENTRICULAR PREMATURE COMPLEXES POSSIBLE LEFT ATRIAL ENLARGEMENT [-0.1mV P WAVE IN V1/V2] ST DEVIATION AND MARKED T-WAVE ABNORMALITY, CONSIDER LATERAL ISCHEMIA [-0.5+ mV T WAVE IN I/aVL/V5/V6] No previous ECG available for comparison Electronically Signed On 03-15-2020 20:43:01 CDT by Gracia Phillips M.D. [email or web address]
[2020-03-15 08:37] LABS: Basophils # 0.1 10^3/uL (0.0-0.1); Basophils % 0.5 %; Eosinophils # 0.2 10^3/uL (0.0-0.8); Hematocrit 36.3 % (37.0-47.0); Hemoglobin 11.2 g/dL (11.5-15.3); Lymphocytes # 1.5 10^3/uL (0.8-4.8); Lymphocytes % 13.8 %; Mean Corpuscular HGB Conc 30.9 g/dL (30.0-36.0); Mean Corpuscular Hemoglobin 28.4 pg (28.0-34.0); Mean Corpuscular Volume 91.9 fL (81-99); Mean Platelet Volume 8.4 fL (7.4-10.4); Monocytes # 0.7 10^3/uL (0.2-0.9); Monocytes % 6.2 %; Neutrophils # 8.16 10^3/uL (1.8-7.7); Neutrophils % 76.3 %; Nucleated Red Blood Cells % 0 %; Platelet Count 369 10^3/cmm (130-400); Red Blood Count 3.95 10^6/uL (4.1-5.3); Red Cell Distribution Width 14.4 % (12.1-15.1); White Blood Count 10.7 10^3/uL (4.0-10.0)
--- NOTE | 2020-03-15 08:37 | ED_ITS ---
HPI - Abdominal Pain General: Chief Complaint: Abdominal Pain Stated Complaint: ABD PAIN Time Seen by Provider: 03/15/20 08:07 History of Present Illness: HPI narrative: 39-year-old female presents complaining of abdominal pain. He had some 2 days ago was not quite as intense she did have some vomiting with that right flank pain seemed to get better yesterday or this morning recurred and is much worse. She denies any fever denies any hematuria she denies any respiratory symptoms she had vomiting and dysuria this morning. She has had nephrolithiasis in the past always been several years. She has not had a period since July 2018. Pain is primarily in the right flank radiating into the groin MD elicited complaint: flank pain Pertinent past history: kidney stones Onset (ago): day(s) Pain Consistency: constant Location: R flank Quality: cramping Radiation: R flank Migration to: suprapubic Exacerbating factors: nothing Relieving factors: nothing Associated Symptoms: Reports GI cramping, dysuria, nausea and poor appetite; Denies bloating, coffee ground emesis, constipation, diarrhea, fever(s), heartburn, hematochezia, hematuria, hematemesis, fecal incontinence and melena Related Data: Date of Last Menstrual Period: 07/24/18 Review of Systems Const: Denies: fever(s) ENMT: Denies: throat pain, ear or mastoid pain, nasal discharge or nasal congestion Card: Denies: chest pain, edema, dyspnea on exertion or orthopnea Resp: Denies: dyspnea, productive cough or non-productive cough GI: Reports: nausea and GI cramping; Denies: hematemesis, coffee ground emesis, heartburn, diarrhea, constipation, bloating, fecal incontinence, hematochezia or melena : Reports: dysuria; Denies: hematuria Skin/Breast: Denies: rash or pruritus PFS ED PFSH: Medical History (Updated 03/17/20 @ 00:00 by ) CKD (chronic kidney disease) stage 2, GFR 60-89 ml/min -secondary to diabetic nephropathy -baseline Cr is around 1.0 Coronary artery disease -hx of CAD s/p stenting Diabetes mellitus type 1 Diabetic gastroparesis -secondary to DM type I Foot osteomyelitis, right Hyperlipidemia Type 1 diabetes mellitus -noted hx of DM type I complicated by nephropathy and neuropathy -A1c-7.5 (12/2019) -Accu-Cheks, scheduled and ISS, hypoglycemia precautions Surgical History (Updated 03/15/20 @ 19:25 by Mele Friedman MD) Below-knee amputation of left lower extremity H/O exploratory laparotomy x 3 History of amputation of right forefoot Hx of cholecystectomy Previous section x 3 S/P coronary artery stent placement x 1 S/P percutaneous endoscopic gastrostomy (PEG) tube placement Family History Unknown Diabetes extensive, type II Other CHF (congestive heart failure) Social History Smoking and tobacco status: former smoker Quit status (tobacco): has quit using tobacco Former quit date comment: 15 yrs ago Alcohol intake: former Former alcohol use details: 15 yrs ago Household members: spouse Marital status: Sexually active: Yes (1, ) Female Reproductive History: Date of last menstrual period: 07/24/18 Physical Exam Const: COMMON NORMALS: no acute distress GENERAL APPEARANCE: cooperative and comfortable ORIENTATION/CONSCIOUSNESS: Yes awake, Yes oriented to person, Yes oriented to place and Yes oriented to time HENMT: COMMON NORMALS: normocephalic and atraumatic HEAD & SCALP: normocephalic and atraumatic Eye: COMMON NORMALS: Equal, round and reactive pupils present, EOMs intact bilaterally, conjunctivae normal and no scleral icterus CONJUNCTIVA: Yes conjunctivae normal PUPIL: Yes Equal, round and reactive pupils present Neck/C-Spine: COMMON NORMALS: full ROM, no lymphadenopathy, supple and no JVD Lymph: LYMPHATIC: no lymphadenopathy noted and no lymphedema noted Resp: COMMON NORMALS: normal respiratory effort, No retractions, No use of accessory muscles and clear to auscultation bilaterally AUSCULTATION: clear to auscultation bilaterally Cardio: COMMON NORMALS: no JVD, regular rate, regular rhythm and No murmurs present (Cardio) RATE: regular rate RHYTHM: regular rhythm GI: COMMON NORMALS: Soft to palpation and No hepatosplenomegaly present AUSCULTATION: Yes normoactive bowel sounds PALPATION: Yes Soft to palpation, No Tenderness to palpation present (GI), No Guarding due to palpation present (GI) and Yes No hepatosplenomegaly present Extremity: NARRATIVE EXTREMITY EXAM: Examination of the incision line of the stop of her BKA he was open wound with some devascularized granular tissue there is no active drainage. There is no exposed vein bone. Reviewing the notes from discharge it is described similar as it appears today reviewing with the patient she states it is not changed since discharge. Neuro: SENSORIUM/ORIENTATION: Yes oriented to person, Yes oriented to place and Yes oriented to time Skin: COMMON NORMALS: no rashes or lesions noted GENERAL SKIN EXAM: no rashes or lesions noted Course Vital Signs: Vital signs: Vital Signs Temperature 97.9 F 03/15/20 08:12 Pulse Rate 111 H 03/15/20 13:42 Respiratory Rate 17 03/15/20 13:42 Blood Pressure 138/87 03/15/20 13:42 Pulse Oximetry 99 03/15/20 13:42 MDM - Abdominal Pain MDM Narrative: Medical decision making narrative: CT does not show any signs of nephrolithiasis. Urine is clear. Suspect this is largely from the patient's gastroparesis she is experienced this in the past patient treated aggressively with Haldol and Ativan and went to check on patient she is sleeping no longer have any retching she received significant amount of fluids. We will go ahead and discharge her home she can use Ativan as needed along with a Reglan follow- up as needed. She did receive her morning dose of IV vancomycin for the osteomyelitis in her stump of her BKA. Lab Data: Attestation: I reviewed the patient's lab results. Labs: Lab Results 03/15/20 03/15/20 03/15/20 Range/Units 08:23 08:23 08:30 WBC 10.7 H (4.0-10.0) 10^3/ uL RBC 3.95 L (4.1-5.3) 10^6/u L Hgb 11.2 L (11.5-15.3) g/dL Hct 36.3 L (37.0-47.0) % MCV 91.9 (81-99) fL MCH 28.4 (28.0-34.0) pg MCHC 30.9 (30.0-36.0) g/dL RDW 14.4 (12.1-15.1) % Plt Count 369 (130-400) 10^3/c mm MPV 8.4 (7.4-10.4) fL Neut % (Auto) 76.3 % Lymph % (Auto) 13.8 % [place] % (Auto) 6.2 % Eos % (Auto) 2.0 % Baso % (Auto) 0.5 % Neut # (Auto) 8.16 H (1.8-7.7) 10^3/u L Lymph # (Auto) 1.5 (0.8-4.8) 10^3/u L [place] # (Auto) 0.7 (0.2-0.9) 10^3/u L Eos # (Auto) 0.2 (0.0-0.8) 10^3/u L Baso # (Auto) 0.1 (0.0-0.1) 10^3/u L Nucleated RBC % (a uto) 0 % Nucleated RBCs # 0.0 /100WBC Sodium (136-145) mmol/L Potassium (3.5-5.1) mmol/L Chloride (98-107) mmol/L Carbon Dioxide (22-29) mmol/L Anion Gap (5-19) BUN (6-20) mg/dL Creatinine (0.5-0.9) mg/dL GFR Calculation (90-130) mL/min Glucose (65-115) mg/dL Calculated Osmolal ity (285-295) mOsm/k g Calcium (8.5-10.5) mg/dL Total Bilirubin (0.15-1.2) mg/dL AST (0-32) U/L ALT (0-33) U/L Alkaline Phosphata se (35-105) IU/L Total Protein (6.6-8.7) g/dL Albumin (3.5-5.2) g/dL Globulin (1.3-4.6) g/dL Lipase (13-60) U/L HCG, Qual Negative (Negative) Urine Color Straw (Yellow) Urine Appearance Clear (CLEAR) Urine pH 7.0 (5-7) Ur Specific Gravit y 1.005 (1.005-1.030) Urine Protein 1+ H (Negative) Urine Glucose (UA) Norm (Normal) Urine Ketones Negative (Negative) Urine Blood Neg (Negative) Urine Nitrate Negative (Negative) Urine Bilirubin Neg (NEGATIVE) Urine Urobilinogen Norm (Negative) mg/dL Ur Leukocyte Estephania ase Negative (Negative) Urine RBC None (0-2) /hpf Urine WBC None (0-5) /hpf Ur Squamous Epith Cells 0-4 H (0-5) Amorphous Sediment Not Reportable Urine Bacteria None (NONE) Urine Mucus Trace 03/15/20 Range/Units 08:30 WBC (4.0-10.0) 10^3/ uL RBC (4.1-5.3) 10^6/u L Hgb (11.5-15.3) g/dL Hct (37.0-47.0) % MCV (81-99) fL MCH (28.0-34.0) pg MCHC (30.0-36.0) g/dL RDW (12.1-15.1) % Plt Count (130-400) 10^3/c mm MPV (7.4-10.4) fL Neut % (Auto) % Lymph % (Auto) % [place] % (Auto) % Eos % (Auto) % Baso % (Auto) % Neut # (Auto) (1.8-7.7) 10^3/u L Lymph # (Auto) (0.8-4.8) 10^3/u L [place] # (Auto) (0.2-0.9) 10^3/u L Eos # (Auto) (0.0-0.8) 10^3/u L Baso # (Auto) (0.0-0.1) 10^3/u L Nucleated RBC % (a uto) % Nucleated RBCs # /100WBC Sodium 135 L (136-145) mmol/L Potassium 4.3 (3.5-5.1) mmol/L Chloride 100 (98-107) mmol/L Carbon Dioxide 24 (22-29) mmol/L Anion Gap 15.3 (5-19) BUN 10 (6-20) mg/dL Creatinine 0.8 (0.5-0.9) mg/dL GFR Calculation 79.0 L (90-130) mL/min Glucose 152 H (65-115) mg/dL Calculated Osmolal ity 279 L (285-295) mOsm/k g Calcium 9.2 (8.5-10.5) mg/dL Total Bilirubin 0.2 (0.15-1.2) mg/dL AST 31 (0-32) U/L ALT 27 (0-33) U/L Alkaline Phosphata se 139 H (35-105) IU/L Total Protein 8.0 (6.6-8.7) g/dL Albumin 4.2 (3.5-5.2) g/dL Globulin 3.8 (1.3-4.6) g/dL Lipase 44 (13-60) U/L HCG, Qual (Negative) Urine Color (Yellow) Urine Appearance (CLEAR) Urine pH (5-7) Ur Specific Gravit y (1.005-1.030) Urine Protein (Negative) Urine Glucose (UA) (Normal) Urine Ketones (Negative) Urine Blood (Negative) Urine Nitrate (Negative) Urine Bilirubin (NEGATIVE) Urine Urobilinogen (Negative) mg/dL Ur Leukocyte Estephania ase (Negative) Urine RBC (0-2) /hpf Urine WBC (0-5) /hpf Ur Squamous Epith Cells (0-5) Amorphous Sediment Urine Bacteria (NONE) Urine Mucus Discharge Plan Discharge Patient Disposition: Home Clinical Impression: Diabetic gastroparesis Condition: Stable Prescriptions: New Ativan 1 mg tablet 1 mg PO Q6H PRN (Reason: nausea and vomiting) Qty: 14 RF: 0 No Action gabapentin 300 mg Capsule 300 mg PO QID RF: 0 ferrous sulfate 325 mg (65 mg iron) Tablet,Delayed Release (Dr/Ec) 325 mg PO BIDWM Qty: 60 RF: 0 sucralfate [Carafate] 1 gram Tablet 1 g PO TID RF: 0 buspirone 10 mg Tablet 10 mg PO BID RF: 0 levofloxacin 750 mg tablet 750 mg PO DAILY 42 Days Qty: 45 RF: 0 vancomycin 750 mg recon soln 750 mg IV Q12H 42 Days Qty: 90 RF: 0 dicyclomine 10 mg capsule 10 mg PO QID Qty: 20 RF: 0 ondansetron 4 mg tablet,disintegrating 4 mg PO Q6H PRN (Reason: nausea and vomiting) Qty: 10 RF: 0 metoclopramide HCl 10 mg tablet 10 mg PO QID RF: 0 clopidogrel [Plavix] 75 mg Tablet 75 mg PO DAILY RF: 0 aspirin [Aspir-81] 81 mg Tablet,Delayed Release (Dr/Ec) 81 mg PO DAILY RF: 0 carvedilol 3.125 mg tablet 3.125 mg PO Q12H RF: 0 insulin lispro [Humalog U-100 Insulin] 100 unit/mL Solution See Rx Instructions .ROUTE .COMPLEX RF: 0 Lantus Solostar U-100 Insulin 100 unit/mL (3 mL) Insulin Pen 5 unit SUBCUT BEDTIME RF: 0 pantoprazole 40 mg tablet,delayed release (DR/EC) 40 mg PO DAILY Qty: 30 RF: 0 Discharge Orders: Discharge Order (Routine); Ordered 03/15/20 Ordered By: Adama Ceballos Discharge Diet: Clear Liquid Discharge Activity: Increase activity as tolerated Activity Restrictions/Additional Instructions: Follow-up with your primary care doctor in the next 2 to 3 days. Continue to go to wound clinic as previously scheduled Discharge Date/Time: 03/15/20 14:09 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 Code ED Conference Services Manager for Kim Mitchell Exam Comprehensive
--- NOTE | 2020-03-15 08:44 | CT_ITS ---
WS: [id number] CT ABDOMEN PELVIS TECHNIQUE: Noncontrast CT of the abdomen and pelvis with coronal and sagittal reformatted images. CLINICAL INFORMATION: flank pain COMPARISON: CT March 13, 2020 DLP: 930.[address] scans at [facility] use at least one of these dose optimization techniques: automat ed exposure control; mA and/or kV adjustment per patient size (includes targeted exams where dose is matched to clinical indication); or iterative reconstruction. FINDINGS: Hepatomegaly with diffuse infiltration. Cholecystectomy clips. Normal GE junction. Small esophageal h iatal hernia. Noncontrast spleen is normal. Vascular calcification. Adrenal glands are normal. Lung b ases are well aerated. Vascular calcification. Sigmoid constipation. No obstructing renal or ureteral calculi. Ureters are decompressed. Vascular calcification. Marked ur inary distention of the bladder. Previously described small bowel enteritis appears improved with les s bowel distention today. No evidence of high-grade obstruction. Notified Adama Ceballos DO at 03/15/2020 10:[address]/CT kidney stone 31015 IMPRESSION: 1. No hydronephrosis in either kidney. No obstructing renal or ureteral calcul i. Ureters are decompressed. 2. Pelvic phleboliths. Vascular calcification. 3. Hepatomegaly with diffuse fatty infiltration. Cholecystectomy clips. 4. Small esophageal hiatal hernia. 5. Fat-containing umbilical hernia. 6. Sigmoid constipation. 7. Marked urinary distention of the bladder. 8. Previously described small bowel enteritis has improved. No evidence of bow el obstruction or significant distention today. 9. Mild chronic appearing compression superior endplate at T12.
[2020-03-15 08:46] LABS: Add Urine Microscopic? YES; Bilirubin Urine Neg (NEGATIVE); Blood Urine Neg (Negative); Glucose Urine UA Norm (Normal); Ketones Urine Negative (Negative); Leukocyte Esterase Urine Negative (Negative); Nitrate Urine Negative (Negative); Protein Urine 1+ (Negative); Specific Gravity, Urine 1.005 (1.005-1.030); Urine Appearance Clear (CLEAR); Urine Color Straw (Yellow); Urobilinogen Urine Norm (Negative)
[2020-03-15 08:47] LABS: Add Urine Culture? No; Mucus Urine TRACE; Squamous Epithelial Cell Urine 0-4 (0-5)
[2020-03-15 08:52] LABS: HCG Qualitative Urine. Negative (Negative)
[2020-03-15] MEDS: ondansetron 2 mg/ML SDV 2 mL 4 MG IVP ×2 (08:57→10:52)
[2020-03-15 08:58] VITALS: RESP 20; O2SAT 99
[2020-03-15] MEDS: morphine 4 mg/mL SDV 1 mL 6 MG IVP (08:58)
[2020-03-15 08:59] LABS: Alanine Aminotransferase 27 U/L (0-33); Albumin Level 4.2 g/dL (3.5-5.2); Alkaline Phosphatase 139 IU/L (35-105); Aspartate Amino Transferase 31 U/L (0-32); Blood Urea Nitrogen 10 mg/dL (6-20); Calcium 9.2 mg/dL (8.5-10.5); Carbon Dioxide 24 mmol/L (22-29); Chloride 100 mmol/L (98-107); Globulin 3.8 g/dL (1.3-4.6); Glucose 152 mg/dL (65-115); Lipase 44 U/L (13-60); Osmolality Calculated 279 mOsm/kg (285-295); Sodium 135 mmol/L (136-145); Total Bilirubin 0.2 mg/dL (0.15-1.2)
[2020-03-15] MEDS: sodium chloride 0.9% 1,000 ML 999 ML IV ×2 (08:59→11:45)
[2020-03-15 09:06] VITALS: BP 195/130; PULSE 105; RESP 18; O2SAT 99
[2020-03-15 09:14] LABS: Anion Gap 15.3 (5-19); Potassium 4.3 mmol/L (3.5-5.1)
[2020-03-15] MEDS: vancomycin 750 MG in sodium chloride 0.9% 250 ML 250 MG IV (09:30)
[2020-03-15] MEDS: LORazepam 2 mg/mL INJ 1 mL IVP ×2 (10:47→12:01)
[2020-03-15] MEDS: haloperidol inj 5 mg/mL INJ 1 mL IM (10:48)
[2020-03-15] MEDS: haloperidol inj 5 mg/mL INJ 1 mL IVP (12:02)
--- NOTE | 2020-03-15 12:05 | PC.NURSE ---
per emd only 2.5 mg of haldol given
[2020-03-15 12:12] VITALS: BP 206/106; PULSE 102; RESP 18; O2SAT 96
[2020-03-15] MEDS: hyDRALAzine 20 mg/mL INJ 1 mL 10 MG IVP (12:19)
--- NOTE | 2020-03-15 12:31 | PC.NURSE ---
leg wound was dressed with abd pad and wrapped with kerlix and tap, patient tolerated well, patient now on bsg trying to urinate
[2020-03-15] MEDS: haloperidol inj 5 mg/mL INJ 1 mL 2.5 MG IVP (12:48)
[2020-03-15 13:40] VITALS: BP 138/87; PULSE 108; RESP 17; O2SAT 99
[2020-03-15 13:42] VITALS: BP 138/87; PULSE 111; RESP 17; O2SAT 99
== END 2020-03-15 14:09 | disposition home or self-care (01) ==
PROVIDERS: Emergency Provider Family Medicine
DX: E10.43 Type 1 diabetes mellitus with diabetic autonomic (poly)neuropathy (principal); K31.84 Gastroparesis; Z79.02 Long term (current) use of antithrombotics/antiplatelets; Z79.82 Long term (current) use of aspirin; Z79.4 Long term (current) use of insulin; Z87.891 Personal history of nicotine dependence; E10.22 Type 1 diabetes mellitus with diabetic chronic kidney disease; N18.2 Chronic kidney disease, stage 2 (mild); E78.5 Hyperlipidemia, unspecified; Z89.512 Acquired absence of left leg below knee
CPT/HCPCS: 12345; 51702; 74176; 80053; 81001; 81003; 81025; 83690; 85025; 93005; 96365; 96372; 96375; 96376; 99284; J0360; J1630; J2060; J2270; J2405; J3370; J7030; J7050

== ENCOUNTER 2020-03-15 16:31 | Outpatient (RCR) | payer SELFPAY ==
[2020-03-12 07:20] VITALS: BP 181/97; PULSE 83; RESP 18; TEMP 36.6; O2SAT 100
[2020-03-12] MEDS: vancomycin 750 MG in sodium chloride 0.9% 250 ML 250 MG IV ×2 (07:40→18:20)
[2020-03-12 10:09] VITALS: BMI 21.2
[2020-03-12 18:26] VITALS: BP 168/84; PULSE 94; RESP 18; TEMP 37.5; O2SAT 98
[2020-03-13] MEDS: vancomycin 750 MG in sodium chloride 0.9% 250 ML 250 MG IV ×2 (07:45→17:00)
[2020-03-13 09:47] VITALS: BP 155/107; PULSE 75; RESP 18; TEMP 36.9; O2SAT 100
[2020-03-13 19:05] VITALS: BP 157/100; PULSE 82; RESP 18; TEMP 36.3; O2SAT 99
[2020-03-14] MEDS: vancomycin 750 MG in sodium chloride 0.9% 250 ML 250 MG IV (17:22)
[2020-03-14 17:27] VITALS: BP 155/90; PULSE 86; RESP 18; TEMP 37.3; O2SAT 100
[2020-03-15] MEDS: vancomycin 750 MG in sodium chloride 0.9% 250 ML 250 MG IV (17:05)
[2020-03-15 17:28] VITALS: BP 171/88; PULSE 122; RESP 20; TEMP 37.4; O2SAT 98
--- NOTE | 2020-03-15 17:35 | SUR.PHASEII ---
Patient was scheduled for IV Infusion Vancomycin this morning at 0745 due to dropping off to work. She was seen in ER for Abdominal pain. She was given her AM dose Vancomycin in the ER. Also given several medication in the ER for Nausea. Since she had received the medicine they wanted her to come and stay in outpatient in a bed and wait until her 1700 PM Vancomycin Infusion. She arrived at 1345. Patient after one to two hours began to have nausea again. Hospitalist was called which came and saw patient. Patient was admitted for observation. [employer] was notified to obtain a room.
== END 2020-03-15 18:00 | disposition home or self-care (01) ==
LOC: GILAB 16:31
PROVIDERS: Visit Provider Family Medicine
DX: M86.9 Osteomyelitis, unspecified (principal)
CPT/HCPCS: 96365; J3370; J7050

== ENCOUNTER 2020-03-15 17:51 | Observation (INO) | payer SELFPAY ==
--- NOTE | 2020-03-15 19:11 | PM.HP ---
Providers/Chief Complaint Admitting Physician: Mele Friedman Primary Care Provider: Mele Friedman History of Present Illness Cherrie Solomon is a 39 year old female was assessed in ER earlier today due to right flank/right lower quadrant abdominal pain, which started this morning, reportedly severe, on assessment urinalysis was not suggestive of any acute infection. CT abdomen pelvis showed dilation of urinary bladder, resolution of prior enteritis, hepatomegaly with diffuse fatty infiltration, status post cholecystectomy, fat-containing umbilical hernia, small esophageal hernia, sigmoid constipation, mild chronic compression of T12, no pyelonephritis, hydronephrosis or ureteral calculi. Noted pelvic phleboliths and vascular calcification. Other incidental findings in the report. She also has been having intractable nausea, recurrent episodes of small amounts of bilious vomiting, poor oral intake. She received a number of medications to treat her nausea, and was discharged to complete her outpatient vancomycin infusion. There she had persistent nausea, another episode of vomiting. Persistent right lower quadrant pain. Due to this she is placed for additional observation in the hospital. With regards to left stump wound, she has not yet followed up with Dr. Holley in office, but has been meaning to make an appointment. During my visit she complains of persistent abdominal discomfort, and request for some Percocet for treatment. She reports that this is what she used to take at home which was previously given to her here in the hospital, but subsequently ran out. Review of Systems Const: Reports: change in appetite; Denies: fever(s), chills, body aches or malaise Eyes: Denies: change in vision or eye redness ENMT: Denies: throat pain, oral sores or ear or mastoid pain Card: Denies: chest pain, edema, pre-syncope or dyspnea on exertion Resp: Denies: dyspnea, productive cough, change in phlegm color or hemoptysis GI: Reports: abdominal pain, nausea and vomiting; Denies: diarrhea, constipation, hematochezia or melena : Reports: flank pain; Denies: urinary frequency or hematuria Musc: Denies: back pain, joint swelling or joint redness Skin/Breast: Reports: sores (L stump); Denies: rash or new lesions Neuro: Denies: headache(s), numbness in extremities, weakness in extremities, dizziness, confusion or seizure-like activity Endo: Denies: polyuria or polydipsia Keith/Lymph: Denies: easy bleeding or purpura All/Imm: Denies: urticaria, throat swelling or tongue swelling Medications/Allergies Home Medications Medication Instructions Recorded Confirmed Last Taken Type Lantus Solostar U-100 Insulin 5 unit SUBCUT BEDTIME 01/13/20 03/15/20 03/14/20 History aspirin [Aspir-81] 81 mg PO DAILY 01/13/20 03/15/20 03/14/20 History carvedilol 3.125 mg PO Q12H 01/13/20 03/15/20 03/14/20 History clopidogrel [Plavix] 75 mg PO DAILY 01/13/20 03/15/20 03/14/20 History insulin lispro [Humalog U-100 See Rx Instructions .ROUTE .COMPLEX 01/13/20 03/15/20 02/01/20 History Insulin] gabapentin 300 mg PO QID 02/11/20 03/15/20 03/14/20 History ferrous sulfate 325 mg PO BIDWM #60 tab 02/16/20 03/15/20 03/14/20 Rx buspirone 10 mg PO BID 03/08/20 03/15/20 03/14/20 History sucralfate [Carafate] 1 g PO TID 03/08/20 03/15/20 03/14/20 History levofloxacin 750 mg PO DAILY 42 Days #45 tab 03/11/20 03/15/20 03/14/20 Rx vancomycin 750 mg IV Q12H 42 Days #90 each 03/11/20 03/15/20 03/14/20 Rx dicyclomine 10 mg PO QID #20 cap 03/13/20 03/15/20 03/14/20 Rx ondansetron 4 mg PO Q6H PRN #10 tab 03/13/20 03/15/20 03/14/20 Rx lorazepam [Ativan] 1 mg PO Q6H PRN #14 tab 03/15/20 Unknown Rx metoclopramide HCl 10 mg PO QID 03/15/20 03/15/20 03/14/20 History Allergies Allergy/AdvReac Type Severity Reaction Status Date / Time morphine Allergy ALGY-Difficulty Verified 03/15/20 09:55 Breathing PFSH Acute PFSH: Medical History (Updated 03/15/20 @ 19:23 by Mele Friedman MD) CKD (chronic kidney disease) stage 2, GFR 60-89 ml/min -secondary to diabetic nephropathy -baseline Cr is around 1.0 Coronary artery disease -hx of CAD s/p stenting Diabetes mellitus type 1 Diabetic gastroparesis -secondary to DM type I Foot osteomyelitis, right Hyperlipidemia Type 1 diabetes mellitus -noted hx of DM type I complicated by nephropathy and neuropathy -A1c-7.5 (12/2019) -Accu-Cheks, scheduled and ISS, hypoglycemia precautions Surgical History (Updated 03/15/20 @ 19:25 by Mele Friedman MD) Below-knee amputation of left lower extremity H/O exploratory laparotomy x 3 History of amputation of right forefoot Hx of cholecystectomy Previous section x 3 S/P coronary artery stent placement x 1 S/P percutaneous endoscopic gastrostomy (PEG) tube placement Family History Unknown Diabetes extensive, type II Other CHF (congestive heart failure) Social History Smoking and tobacco status: former smoker Quit status (tobacco): has quit using tobacco Former quit date comment: 15 yrs ago Alcohol intake: former Former alcohol use details: 15 yrs ago Household members: spouse Marital status: Sexually active: Yes (1, ) Female Reproductive History: Date of last menstrual period: 07/24/18 Physical Exam Const: COMMON NORMALS: no acute distress and patient oriented x3 OTHER: Miserable, intermittently grimacing, grabbing onto right lower quadrant abdominal wall, bothered by pain. HENMT: COMMON NORMALS: oropharynx normal Neck/C-Spine: COMMON NORMALS: no JVD Resp: COMMON NORMALS: normal respiratory effort and clear to auscultation bilaterally AUSCULTATION: clear to auscultation bilaterally Cardio: COMMON NORMALS: no JVD, regular rhythm, S1 normal heart sound present, S2 normal heart sound present and No murmurs present (Cardio) RATE: tachycardic HEART SOUNDS: S1 normal heart sound present and S2 normal heart sound present GI: COMMON NORMALS: Normal to inspection, nondistended, normoactive bowel sounds present and Soft to palpation PALPATION: Yes Soft to palpation OTHER: Abdomen is soft to palpation. Normal bowel sounds are present. She reports quite significant tenderness, however, with even just barely touching the surface of the skin on the right lower quadrant. She has old scars from prior abdominal surgeries including cholecystectomy, exploratory laparotomies. Skin over right lower quadrant is somewhat wrinkled, thin. No overlying erythema, no visible edema. No fluctuance to suggest fluid collection. No blisters or drainage. Extremity: COMMON NORMALS: no joint enlargement and no pedal edema Neuro: COMMON NORMALS: patient oriented x3 and moves all extremities Skin: COMMON NORMALS: no rashes or lesions noted GENERAL SKIN EXAM: no rashes or lesions noted A&P Assessment and plan (1) Abdominal pain: Her biggest complaint is right lower recurrent abdominal pain which is bothering her since this morning. She immediately asks for something for her pain. When asked where she takes at home, says she used to take Percocet previously which was given to her at the hospital, but has run out. Her abdominal pain is somewhat atypical. She grimaces even from just light touch or pinch to the abdominal wall over the right lower quadrant. CT scan findings reviewed. With some urinary bladder dilation, umbilical hernia, small esophageal hernia sigmoid constipation, mild chronic compression of T12, no pyelonephritis, hydronephrosis or ureteral calculi. Noted pelvic phleboliths and vascular calcification. Other incidental findings in the report. None of the findings would explain the pain in the location where she currently is having it. Has had surgical evaluations, including during the recent hospitalization. The pain again is also elicited by just brushing the skin or pinching day subcutaneous tissue. This appears to be more in line with possibly a degree of mild panniculitis, although also there is no findings of cellulitis, no erythema, edema, any kind of discharge, fluctuance of the skin. Not sure if perhaps there is some neuropathic pain from prior surgeries and abdominal scars. At this time will add lidocaine patch, Tylenol as needed, conservative measures for pain control. Monitor in hospital. Does have some alkaline phosphatase elevation which appears to be chronic, will reassess liver parameters, otherwise will need additional follow-up in outpatient office. Status: Acute Qualifiers: Abdominal location: right lower quadrant Qualified Code(s): R10.31 - Right lower quadrant pain (2) Intractable nausea and vomiting: Lipase is repeatedly normal. Denies any NSAID use, but does take daily aspirin 81 mg. Nausea, vomiting. Perhaps a degree of gastritis, although not so severe visible on CT. At this time we will add PPI. Symptomatic management with nausea medications. Continue sucralfate. Clear liquid, consistent carb diet as tolerating. Continue Reglan for known gastroparesis. We will check urine tox screen. Status: Acute (3) Sinus tachycardia: This may be secondary to dehydration with poor oral intake, nausea, vomiting, possibly also withdrawal from beta-rolf. Will symptomatically manage nausea, vomiting, treat dehydration, restart carvedilol. Status: Acute (4) Dehydration: IV hydration. Monitor in the hospital. Status: Acute Additional A&P Information Gastroparesis: Continue Reglan 4 times daily. Reports this was prescribed to her by gastroenterology in [place] previously. Discussed with her would benefit from additional follow-up with them given recurrence of symptoms. Recent cellulitis, abscess, osteomyelitis of left stump. Continue vancomycin infusions. Continue follow-up with surgery in office. DM 1: Continue insulin. Consistent carb diet. No evidence of DKA. History of CAD status post stenting CKD stage II LLE BKA HLD Chronic anemia HTN Other chronic medical conditions. Attestations Medical Necessity Statement*: Place in observation. 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 Code Acute Forest Ecologist for Kim [facility] Diagnoses Abdominal pain R10.31 Abdominal location: right lower quadrant Intractable nausea and vomiting R11.2 Sinus tachycardia R00.0 Dehydration E86.0
[2020-03-15 19:44] LABS: Thyroid Stimulating Hormone 0.44 uIU/mL (0.27-4.20)
[2020-03-15 20:00] VITALS: BP 193/100; PULSE 109; RESP 20; TEMP 37.1; O2SAT 99
[2020-03-15] MEDS: ondansetron 2 mg/ML SDV 2 mL 4 MG IVP (20:58)
[2020-03-15] MEDS: pantoprazole 40 mg SDV IVP (20:58)
[2020-03-15 21:28] LABS: Glucose Point of Care 134 mg/dL (70-110)
[2020-03-15 21:50] LABS: Amphetamines Screen Urine Negative (Negative); Barbiturates Screen Urine Negative (Negative); Benzodiazepines Screen Urine Positive (Negative); Cocaine Screen Urine Negative (Negative); Opiate Screen Urine Positive (Negative); PCP Screen Urine Negative (Negative); THC Screen Urine Negative (Negative)
[2020-03-15] MEDS: heparin 5,000 unit/mL INJ 1 mL 5000 UNIT SUBCUT (22:30)
[2020-03-15] MEDS: lactated ringers 1,000 ML 100 ML IV (22:30)
[2020-03-16] VITALS: BP 202/90; PULSE 107; RESP 20; TEMP 37.1; O2SAT 97
[2020-03-16] MEDS: LORazepam 1 mg Tablet PO (03:33)
[2020-03-16 04:00] VITALS: BP 136/80; PULSE 85; RESP 20; TEMP 36.4; O2SAT 97
[2020-03-16] MEDS: vancomycin 750 MG in sodium chloride 0.9% 250 ML 250 MG IV (05:46)
[2020-03-16 05:49] LABS: Basophils % 0.4 %; Eosinophils # 0.1 10^3/uL (0.0-0.8); Eosinophils % 0.5 %; Hematocrit 34.4 % (37.0-47.0); Hemoglobin 10.8 g/dL (11.5-15.3); Lymphocytes # 1.5 10^3/uL (0.8-4.8); Lymphocytes % 15.8 %; Mean Corpuscular HGB Conc 31.4 g/dL (30.0-36.0); Mean Corpuscular Hemoglobin 28.3 pg (28.0-34.0); Mean Corpuscular Volume 90.3 fL (81-99); Monocytes # 0.6 10^3/uL (0.2-0.9); Monocytes % 6.7 %; Neutrophils # 7.05 10^3/uL (1.8-7.7); Neutrophils % 76.1 %; Nucleated Red Blood Cells % 0 %; Platelet Count 364 10^3/cmm (130-400); Red Blood Count 3.81 10^6/uL (4.1-5.3); Red Cell Distribution Width 14.7 % (12.1-15.1); White Blood Count 9.3 10^3/uL (4.0-10.0)
[2020-03-16 06:02] LABS: Alanine Aminotransferase 17 U/L (0-33); Albumin Level 4.2 g/dL (3.5-5.2); Alkaline Phosphatase 141 IU/L (35-105); Anion Gap 16.6 (5-19); Aspartate Amino Transferase 13 U/L (0-32); Blood Urea Nitrogen 9 mg/dL (6-20); Calcium 10.3 mg/dL (8.5-10.5); Carbon Dioxide 25 mmol/L (22-29); Chloride 102 mmol/L (98-107); Globulin 3.4 g/dL (1.3-4.6); Glomerular Filtration Rate 61.1 mL/min (90-130); Glucose 159 mg/dL (65-115); Magnesium 1.7 mg/dL (1.7-2.3); Osmolality Calculated 289 mOsm/kg (285-295); Potassium 3.6 mmol/L (3.5-5.1); Sodium 140 mmol/L (136-145); Total Bilirubin 0.4 mg/dL (0.15-1.2); Total Protein 7.6 g/dL (6.6-8.7)
[2020-03-16 06:59] LABS: Glucose Point of Care 132 mg/dL (70-110)
[2020-03-16 07:55] VITALS: BP 132/76; PULSE 74; RESP 22; TEMP 36.8; O2SAT 95
[2020-03-16] MEDS: clopidogrel 75 mg Tablet PO (08:13)
[2020-03-16] MEDS: BuSPIRONE 10 mg Tablet PO (08:13)
[2020-03-16] MEDS: metoclopramide 10 mg Tablet PO ×2 (08:14→14:08)
[2020-03-16] MEDS: sucralfate 1 gm Tablet PO (08:14)
[2020-03-16] MEDS: gabapentin 300 mg Capsule PO ×2 (08:14→14:08)
[2020-03-16] MEDS: levoFLOXacin 750 mg Tablet PO (08:14)
[2020-03-16] MEDS: dicyclomine 10 mg Capsule PO ×2 (08:14→14:08)
[2020-03-16] MEDS: carvedilol 3.125 mg Tablet PO (08:14)
[2020-03-16] MEDS: aspirin 81 mg EC Tablet PO (08:14)
[2020-03-16] MEDS: lactated ringers 1,000 ML 100 ML IV (08:15)
[2020-03-16] MEDS: lidocaine 5% Patch 1 PATCH TOPICAL (08:25)
[2020-03-16] MEDS: pantoprazole 40 mg SDV IVP (08:30)
[2020-03-16] MEDS: heparin 5,000 unit/mL INJ 1 mL 5000 UNIT SUBCUT (08:31)
[2020-03-16 10:45] LABS: Glucose Point of Care 167 mg/dL (70-110)
[2020-03-16 11:30] VITALS: BP 130/64; PULSE 68; RESP 18; TEMP 36.3; O2SAT 97
--- NOTE | 2020-03-16 15:03 | P.DS_ITS ---
Discharge Providers Date of Admission: 03/15/20 17:51 Date of Discharge: March 16, 2020 Attending Provider at Admission: Mele Friedman Attending Provider at Discharge: Mele Friedman Primary Care Provider: Mele Friedman Diagnoses at Discharge Discharge Diagnosis (1) Abdominal pain: Status: Acute Qualifiers: Abdominal location: right lower quadrant Qualified Code(s): R10.31 - Right lower quadrant pain (2) Intractable nausea and vomiting: Status: Acute (3) Sinus tachycardia: Status: Acute (4) Dehydration: Status: Acute Hospital Course Hospital Course: Pleasant 39-year-old lady with diabetes, coronary disease, current kidney disease, abscess and nonhealing wound of left BKA stump, currently undergoing infusions of IV vancomycin in outpatient treatment center, follow-up with surgery for wound care, was assessed in the emergency department yesterday due to right lower quadrant abdominal pain started earlier in the morning, also with worse than usual nausea, vomiting. This is a chronic problem for her, with known gastroparesis, and is currently on Reglan, however, nausea, vomiting were worse than usual. She also complained of severe right lower quadrant pain, although CT abdomen pelvis did not find a suggestive cause. A number of incidental findings were identified, including urinary bladder dilation, pelvic phleboliths and vascular calcification, hepatomegaly with diffuse fatty infiltration, small esophageal hiatal hernia, fat-containing vocal hernia, sigmoid constipation, urinary bladder dilation, without hydronephrosis, no nephrolithiasis or ureterolithiasis, resolution of previously observed enteritis, as well as mild chronic appearing compression of superior endplate at T12. After assessment in ER, as well as symptomatic management of her nausea, she was charged to receive her vancomycin infusion. There she continued having episodes of nausea and vomiting, persistent right lower quadrant abdominal pain, with noted also sinus tachycardia 105-120. She reported she has not had any significant oral intake. Appeared dehydrated. She was placed in observation, received IV hydration, symptomatic management of nausea given with continuation of Reglan, Zofran, prochlorperazine, and PPI was added. She denies taking NSAIDs at home, does not drink any alcohol, but does take a 81 mg aspirin daily. Her symptoms today significantly improved. Her abdominal pain has resolved. Her pain has been somewhat atypical, with pain on palpation of superficial abdominal wall rather than deep abdominal pain. No cellulitis, blistering rash, or other findings suggestive of acute infection, tissue necrosis, etc. could be seen, and today abdomen is much better, without pain on palpation. As discussed with her, without obvious findings to explain this on CT scan, and with atypical nature, does appear perhaps pain originally from abdominal wall, possibly secondary to multiple episodes of nausea vomiting. At this time due to suspicion for possible mild gastritis contributing to her nausea vomiting will continue PPI as she does need to continue on aspirin due to coronary disease. She was previously following up with gastroenterology with regards to gastroparesis, and so recommended that she continue follow-up with the spec ialist. Also encouraged to make sure she is following up with Dr. Holley with regards to continued wound care of left BKA stump wound, as well as continuation of outpatient vancomycin infusions. Physical Exam Const: COMMON NORMALS: no acute distress and patient oriented x3 OTHER: Just prior to the visit she is walking around in the hallway. She reports that she is feeling much better, and requests to be discharged home. HENMT: COMMON NORMALS: oropharynx normal Neck/C-Spine: COMMON NORMALS: no JVD Resp: COMMON NORMALS: normal respiratory effort and clear to auscultation bilaterally AUSCULTATION: clear to auscultation bilaterally Cardio: COMMON NORMALS: no JVD, regular rhythm, S1 normal heart sound present, S2 normal heart sound present and No murmurs present (Cardio) RATE: tachycardic RHYTHM: regular rhythm HEART SOUNDS: S1 normal heart sound present and S2 normal heart sound present GI: COMMON NORMALS: Normal to inspection, nondistended, normoactive bowel sounds present and Soft to palpation PALPATION: Yes Soft to palpation OTHER: Abdomen is soft to palpation. Today is nontender. Normal bowel sounds are present. She has old scars from prior abdominal surgeries including cholecystectomy, exploratory laparotomies. Skin over right lower quadrant is somewhat wrinkled, thin. No overlying erythema, no visible edema. No fluctuance to suggest fluid collection. No blisters or drainage. Extremity: COMMON NORMALS: no joint enlargement and no pedal edema OTHER: Left BKA Neuro: COMMON NORMALS: patient oriented x3 and moves all extremities Skin: LESIONS: lesion noted (3 cm ulceration noted on anterior lateral aspect of the left BKA stump, with a rim of 4 cm surrounding mild/faint erythema, mild swelling, with small amount of undermining present and ulceration. Could not express any purulent drainage at this time.) OTHER: Wound is repacked and redressed prior to discharge. Discharge Data Data Completed and Pending: Pending at discharge Category Date Time Status Complete Blood Co unt w/Auto AM LABS Lab 03/17/20 04:00 Ordered Complete Blood Co unt w/Auto AM LABS Lab 03/18/20 04:00 Ordered Comprehensive Met abolic Panel AM LA BS Lab 03/17/20 04:00 Ordered Comprehensive Met abolic Panel AM LA BS Lab 03/18/20 04:00 Ordered Vancomycin Trough Timed Lab 03/17/20 17:00 Ordered Labs from last 24 hours 03/16/20 03/16/20 03/16/20 10:34 06:52 05:35 WBC RBC Hgb Hct MCV MCH MCHC RDW Plt Count MPV Neut % (Auto) Lymph % (Auto) Nicholas % (Auto) Eos % (Auto) Baso % (Auto) Neut # (Auto) Lymph # (Auto) Nicholas # (Auto) Eos # (Auto) Baso # (Auto) Nucleated RBC % (a uto) Nucleated RBCs # Sodium 140 Potassium 3.6 Chloride 102 Carbon Dioxide 25 Anion Gap 16.6 BUN 9 Creatinine 1.0 H GFR Calculation 61.1 L Glucose 159 H POC Glucose 167 132 Calculated Osmolal ity 289 Calcium 10.3 Magnesium 1.7 Total Bilirubin 0.4 AST 13 ALT 17 Alkaline Phosphata se 141 H Total Protein 7.6 Albumin 4.2 Globulin 3.4 TSH Urine Opiates Scre en Ur Barbiturates Sc reen Ur Phencyclidine S crn Ur Amphetamines Sc reen U Benzodiazepines Scrn Urine Cocaine Scre en U Marijuana (THC) Screen 03/16/20 03/15/20 03/15/20 05:35 21:30 20:56 WBC 9.3 RBC 3.81 L Hgb 10.8 L Hct 34.4 L MCV 90.3 MCH 28.3 MCHC 31.4 RDW 14.7 Plt Count 364 MPV 9.0 Neut % (Auto) 76.1 Lymph % (Auto) 15.8 Nicholas % (Auto) 6.7 Eos % (Auto) 0.5 Baso % (Auto) 0.4 Neut # (Auto) 7.05 Lymph # (Auto) 1.5 Nicholas # (Auto) 0.6 Eos # (Auto) 0.1 Baso # (Auto) 0.0 Nucleated RBC % (a uto) 0 Nucleated RBCs # 0.0 Sodium Potassium Chloride Carbon Dioxide Anion Gap BUN Creatinine GFR Calculation Glucose POC Glucose 134 Calculated Osmolal ity Calcium Magnesium Total Bilirubin AST ALT Alkaline Phosphata se Total Protein Albumin Globulin TSH Urine Opiates Scre en Positive H Ur Barbiturates Sc reen Negative Ur Phencyclidine S crn Negative Ur Amphetamines Sc reen Negative U Benzodiazepines Scrn Positive H Urine Cocaine Scre en Negative U Marijuana (THC) Screen Negative 03/15/20 08:30 WBC RBC Hgb Hct MCV MCH MCHC RDW Plt Count MPV Neut % (Auto) Lymph % (Auto) Nicholas % (Auto) Eos % (Auto) Baso % (Auto) Neut # (Auto) Lymph # (Auto) Nicholas # (Auto) Eos # (Auto) Baso # (Auto) Nucleated RBC % (a uto) Nucleated RBCs # Sodium Potassium Chloride Carbon Dioxide Anion Gap BUN Creatinine GFR Calculation Glucose POC Glucose Calculated Osmolal ity Calcium Magnesium Total Bilirubin AST ALT Alkaline Phosphata se Total Protein Albumin Globulin TSH 0.44 Urine Opiates Scre en Ur Barbiturates Sc reen Ur Phencyclidine S crn Ur Amphetamines Sc reen U Benzodiazepines Scrn Urine Cocaine Scre en U Marijuana (THC) Screen Vitals: Last Vital Signs Temp 97.4 F L 03/16/20 11:30 Pulse 68 03/16/20 11:30 Resp 18 03/16/20 11:30 BP 130/64 03/16/20 11:30 Pulse Ox 97 03/16/20 11:30 Discharge Plan Discharge Patient Disposition: Home Condition: Stable Prescriptions: New pantoprazole 40 mg tablet,delayed release (DR/EC) 40 mg PO DAILY Qty: 30 RF: 0 Continued gabapentin 300 mg Capsule 300 mg PO QID RF: 0 ferrous sulfate 325 mg (65 mg iron) Tablet,Delayed Release (Dr/Ec) 325 mg PO BIDWM Qty: 60 RF: 0 sucralfate [Carafate] 1 gram Tablet 1 g PO TID RF: 0 buspirone 10 mg Tablet 10 mg PO BID RF: 0 levofloxacin 750 mg tablet 750 mg PO DAILY 42 Days Qty: 45 RF: 0 vancomycin 750 mg recon soln 750 mg IV Q12H 42 Days Qty: 90 RF: 0 dicyclomine 10 mg capsule 10 mg PO QID Qty: 20 RF: 0 ondansetron 4 mg tablet,disintegrating 4 mg PO Q6H PRN (Reason: nausea and vomiting) Qty: 10 RF: 0 metoclopramide HCl 10 mg tablet 10 mg PO QID RF: 0 Ativan 1 mg tablet 1 mg PO Q6H PRN (Reason: nausea and vomiting) Qty: 14 RF: 0 clopidogrel [Plavix] 75 mg Tablet 75 mg PO DAILY RF: 0 aspirin [Aspir-81] 81 mg Tablet,Delayed Release (Dr/Ec) 81 mg PO DAILY RF: 0 carvedilol 3.125 mg tablet 3.125 mg PO Q12H RF: 0 insulin lispro [Humalog U-100 Insulin] 100 unit/mL Solution See Rx Instructions .ROUTE .COMPLEX RF: 0 Lantus Solostar U-100 Insulin 100 unit/mL (3 mL) Insulin Pen 5 unit SUBCUT BEDTIME RF: 0 Discharge Orders: Discharge Order (Routine); Ordered 03/16/20 Ordered By: Mele Friedman Referrals: Dave Holley MD [Physician] - 03/17/20 2:15 pm () Judy Mendoza FNP [Nurse Practitioner] - 03/18/20 1:30 pm Patient Instructions: Pantoprazole (By mouth), Wound Infection (GEN) Activity Restrictions/Additional Instructions: Continue wound care, and repacking as previously instructed. Please make sure to follow-up with Dr. Shelby in office for wound reassessment and repacking, and any debridement that may be needed. Continue outpatient antibiotic infusions. Avoid any NSAIDs like ibuprofen, Aleve, etc. Resume follow-up with your curing oven tender with regards to severe gastroparesis. Continue monitoring blood glucose 4 times a day. Continue insulin. Discharge Attestations Time Spent in Discharge Care*: greater than 30 min Status at Discharge: Cognitive status at discharge: cognitively intact , Behavioral status at discharge: cooperative , Quality Metrics Clinical Quality Measures During this hospital stay, did patient experience: None 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 Code Acute Internal Medicine Veterinary Technician for Chg Fwd Diagnoses Abdominal pain R10.31 Abdominal location: right lower quadrant Intractable nausea and vomiting R11.2 Sinus tachycardia R00.0 Dehydration E86.0
[2020-03-16 15:04] VITALS: BP 130/64; PULSE 68; RESP 18; TEMP 36.3; O2SAT 97
[2020-03-16 15:26] VITALS: BP 135/72; PULSE 91; RESP 20; TEMP 36.7; O2SAT 100
--- NOTE | 2020-03-18 14:46 | PC.SOCIAL ---
Post D/C Note: Received a call from Dr. Holley who states that patient did not show up to her appointment yesterday in his clinic to discuss the option of her changing from IV infusions to PO. Dr. Holley states that when he spoke with pharmacist Rolf, they discussed that Levaquin 750mg PO daily would be an alternate, however Dr. Holley wants patient to understand this is sub-optimal treatment compared to IV Vancomycin BID. Dr. Holley states that inpatient pharmacy should be able to provide the needed length of therapy. Called inpatient pharmacy and spoke with Ravinder, who states that it would be for 6 weeks. Called patient and relayed this information to her, explaining that we will try this treatment plan although it is sub-optimal due to it being difficult for her to get to [facility] for BID Vanc infusions and her non-compliance with coming twice daily (according the the outpatient surgery staff). Also explained to patient that Dr. Holley wants her to follow up with Dr. Soto in the clinic this week as he will be out of office for two weeks. Patient verbalizes understanding of this and states she has Dr. Soto's number and will call to get an appointment with him for next week. She is supposed to come to [facility] in the AM to get an infusion and at this time, she can get her PICC line discontinued. V/O for Levaquin 750mg PO daily #42 no refills called into [facility]. Called Dr. Holley back and updated him on all the above, patient's response, and the plan for her to come to [facility] tomorrow to get PICC removed and after that cigar packer and picker her Levaquin at the pharmacy. He agrees to the plan. Called Outpatient Surgery dept and order faxed to them for removal of PICC line when she comes in tomorrow.
== END 2020-03-16 15:45 | disposition home or self-care (01) ==
PROVIDERS: Admitting Provider Internal Medicine; PCP Internal Medicine; Visit Provider Internal Medicine
DX: R10.31 Right lower quadrant pain (principal); R11.2 Nausea with vomiting, unspecified; R00.0 Tachycardia, unspecified; E86.0 Dehydration; K31.84 Gastroparesis; I12.9 Hypertensive chronic kidney disease with stage 1 through stage 4 chronic kidney disease, or unspecified chronic kidney disease; E10.22 Type 1 diabetes mellitus with diabetic chronic kidney disease; N18.2 Chronic kidney disease, stage 2 (mild); Z79.4 Long term (current) use of insulin; I25.10 Atherosclerotic heart disease of native coronary artery without angina pectoris; Z95.5 Presence of coronary angioplasty implant and graft; E78.5 Hyperlipidemia, unspecified; Z87.891 Personal history of nicotine dependence
CPT/HCPCS: 12345; 36415; 36416; 80053; 80306; 82962; 83735; 84443; 85025; 96360; 96361; 96372; 96375; C9113; G0378; G0379; J1644; J2405; J3370; J7050; J8597

== ENCOUNTER 2020-03-17 08:32 | Emergency (ER) | payer SELFPAY ==
[2020-03-17 08:34] VITALS: BMI 20.7
[2020-03-17 08:51] VITALS: BP 210/135; PULSE 114; RESP 20; O2SAT 96
[2020-03-17 08:55] LABS: Basophils % 0.5 %; Eosinophils # 0.1 10^3/uL (0.0-0.8); Eosinophils % 0.9 %; Hematocrit 32.3 % (37.0-47.0); Hemoglobin 10.1 g/dL (11.5-15.3); Lymphocytes # 1.1 10^3/uL (0.8-4.8); Lymphocytes % 14.8 %; Mean Corpuscular HGB Conc 31.3 g/dL (30.0-36.0); Mean Corpuscular Hemoglobin 28.2 pg (28.0-34.0); Mean Corpuscular Volume 90.2 fL (81-99); Mean Platelet Volume 8.4 fL (7.4-10.4); Monocytes # 0.6 10^3/uL (0.2-0.9); Monocytes % 7.3 %; Neutrophils # 5.85 10^3/uL (1.8-7.7); Nucleated Red Blood Cells % 0 %; Platelet Count 355 10^3/cmm (130-400); Red Blood Count 3.58 10^6/uL (4.1-5.3); Red Cell Distribution Width 14.2 % (12.1-15.1); White Blood Count 7.7 10^3/uL (4.0-10.0)
[2020-03-17] MEDS: haloperidol inj 5 mg/mL INJ 1 mL IVP (08:59)
[2020-03-17] MEDS: LORazepam 2 mg/mL INJ 1 mL 1 MG IVP (08:59)
[2020-03-17] MEDS: sodium chloride 0.9% 1,000 ML 999 ML IV (08:59)
--- NOTE | 2020-03-17 08:59 | XRR_ITS ---
PROCEDURE INFORMATION: Exam: XR Abdomen, 2 Views Exam date and time: 03/17/2020 9:37 AM Age: 39 years old Clinical indication: Abdominal pain; Prior surgery; Surgery type: C section; Additional info: Abd pain TECHNIQUE: Imaging protocol: XR of the abdomen. Views: 2 Views. COMPARISON: CT kidney stone [id number] 03/15/2020 9:14 AM FINDINGS: Tubes, catheters and devices: There is a right arm PICC present with the tip in the superior vena cava. Heart/Mediastinum: The cardiac silhouette is not enlarged. The mediastinal contours are normal. Lungs: No lung consolidation or pulmonary edema. Pleural space: No pleural effusion or pneumothorax. Gastrointestinal tract: No dilated gas-filled loops of bowel. No suspicious air-fluid levels. Intraperitoneal space: Multiple surgical clips present in the upper abdomen. No pneumoperitoneum. Bones/joints: No acute osseous abnormality. XR/XR acute abdomen series [id number] IMPRESSION: No acute abnormality.
--- NOTE | 2020-03-17 09:04 | W.ED.ABDPA2 ---
HPI - Abdominal Pain General: Chief Complaint: Abdominal Pain Stated Complaint: ABDOMINAL PAIN Time Seen by Provider: 03/17/20 08:37 History of Present Illness: HPI narrative: 39-year-old female with multiple ER visits for same complaint. She has had 5 admissions in the last 2 months 8 CTs of her abdomen and pelvis she was seen 2 days ago in the emergency room with persistent nausea and vomiting but no significant laboratory or or physical exam findings her symptoms improved after treatment with Haldol and Ativan for nausea and vomiting and her nausea and vomiting resolved. She went outpatients to get her second dose of the day for vancomycin began having further complaints of nausea and dry heaving and was admitted by hospitalist. She was discharged home the next day, which was yesterday. She returns today complaining of continued abdominal pain now it is in the lower abdomen moving from the upper abdomen she is requesting narcotic pain medications. We had avoided use of narcotic pain medications at her previous ER visit because she was having epigastric pain and given her multiple previous visits was concerned that she had problems with her diabetic gastroparesis initially on arrival we thought she had a possibly nephrolithiasis. MD elicited complaint: abdominal pain Pertinent past history: constipation and other (Diabetic gastroparesis) Onset (ago): week(s) Pain Consistency: intermittent Location: Suprapubic and Pelvis Severity: severe Quality: sharp Radiation: suprapubic Migration to: no migration Exacerbating factors: nothing Relieving factors: nothing Associated Symptoms: Reports constipation, GI cramping, nausea and vomiting; Denies change in stool character, chills, coffee ground emesis, dysuria, fever(s), hematochezia and hematemesis Related Data: Date of Last Menstrual Period: 07/24/18 Review of Systems Const: Denies: fever(s), chills, body aches, change in appetite, fatigue or malaise ENMT: Denies: throat pain, ear or mastoid pain, nasal discharge or nasal congestion Card: Denies: chest pain, edema, dyspnea on exertion or orthopnea Resp: Denies: dyspnea, productive cough or non-productive cough GI: Reports: nausea, vomiting, constipation and GI cramping; Denies: hematemesis, coffee ground emesis, change in stool character or hematochezia : Denies: flank pain, difficulty voiding, dysuria, urinary frequency or urinary urgency Skin/Breast: Denies: rash or pruritus PFSH ED PFSH: Medical History (Updated 03/17/20 @ 11:02 by Adama Ceballos DO) CKD (chronic kidney disease) stage 2, GFR 60-89 ml/min -secondary to diabetic nephropathy -baseline Cr is around 1.0 Coronary artery disease -hx of CAD s/p stenting Diabetes mellitus type 1 Diabetic gastroparesis -secondary to DM type I Foot osteomyelitis, right Hyperlipidemia Type 1 diabetes mellitus -noted hx of DM type I complicated by nephropathy and neuropathy -A1c-7.5 (12/2019) -Accu-Cheks, scheduled and ISS, hypoglycemia precautions Surgical History (Updated 03/15/20 @ 19:25 by Mele Friedman MD) Below-knee amputation of left lower extremity H/O exploratory laparotomy x 3 History of amputation of right forefoot Hx of cholecystectomy Previous section x 3 S/P coronary artery stent placement x 1 S/P percutaneous endoscopic gastrostomy (PEG) tube placement Family History Unknown Diabetes extensive, type II Other CHF (congestive heart failure) Social History Smoking and tobacco status: former smoker Quit status (tobacco): has quit using tobacco Former quit date comment: 15 yrs ago Alcohol intake: former Former alcohol use details: 15 yrs ago Household members: spouse Marital status: Sexually active: Yes (1, ) Female Reproductive History: Date of last menstrual period: 07/24/18 Physical Exam Const: COMMON NORMALS: no acute distress GENERAL APPEARANCE: cooperative and comfortable ORIENTATION/CONSCIOUSNESS: Yes awake, Yes oriented to person, Yes oriented to place and Yes oriented to time HENMT: COMMON NORMALS: normocephalic and atraumatic HEAD & SCALP: normocephalic and atraumatic Eye: COMMON NORMALS: Equal, round and reactive pupils present, EOMs intact bilaterally, conjunctivae normal and no scleral icterus CONJUNCTIVA: Yes conjunctivae normal PUPIL: Yes Equal, round and reactive pupils present Neck/C-Spine: COMMON NORMALS: full ROM, no lymphadenopathy, supple and no JVD Lymph: LYMPHATIC: no lymphadenopathy noted and no lymphedema noted Resp: COMMON NORMALS: normal respiratory effort, No retractions, No use of accessory muscles and clear to auscultation bilaterally AUSCULTATION: clear to auscultation bilaterally Cardio: COMMON NORMALS: no JVD, regular rate, regular rhythm and No murmurs present (Cardio) RATE: regular rate RHYTHM: regular rhythm GI: COMMON NORMALS: Soft to palpation and No hepatosplenomegaly present AUSCULTATION: Yes normoactive bowel sounds PALPATION: Yes Soft to palpation, No Tenderness to palpation present (GI), No Guarding due to palpation present (GI) and Yes No hepatosplenomegaly present OTHER: Patient complained of severe abdominal pain with light touch to the skin. Patient referring to pain and being in the suprapubic and pelvic area but complains of pain with light touch to the skin anywhere in the abdomen. Pain is not in the locale that she refers to the pain to when examined and it is also disproportionate to exam findings. Neuro: SENSORIUM/ORIENTATION: Yes oriented to person, Yes oriented to place and Yes oriented to time Skin: COMMON NORMALS: no rashes or lesions noted GENERAL SKIN EXAM: no rashes or lesions noted Course Vital Signs: Vital signs: Vital Signs Temperature 97.8 F 03/17/20 11:13 Pulse Rate 112 H 03/17/20 11:13 Respiratory Rate 18 03/17/20 11:13 Blood Pressure 156/90 03/17/20 11:13 Pulse Oximetry 98 03/17/20 11:13 MDM - Abdominal Pain MDM Narrative: Medical decision making narrative: Abdominal pain on exam is extremely disproportionate even light touch to the skin or pinching the skin itself patient will say it causes severe pain. Pelvic ultrasound was unremarkable. Will discharge home continue same medications. When patient was discharged she took a wheelchair from the waiting room wheeled to a nearby convenience store where she convinced someone to buy her hot dog and soda. She then wheeled herself back to the emergency room to wait for her to come and pick her up. Strongly encouraged her at the time of discharge to follow-up with her primary care doctor and with gastroenterology has previously scheduled. Continue her outpatient IV vancomycin. Lab Data: Labs: Lab Results 03/17/20 03/17/20 03/17/20 Range/Units 08:48 08:48 09:02 WBC 7.7 (4.0-10.0) 10^3/ uL RBC 3.58 L (4.1-5.3) 10^6/u L Hgb 10.1 L (11.5-15.3) g/dL Hct 32.3 L (37.0-47.0) % MCV 90.2 (81-99) fL MCH 28.2 (28.0-34.0) pg MCHC 31.3 (30.0-36.0) g/dL RDW 14.2 (12.1-15.1) % Plt Count 355 (130-400) 10^3/c mm MPV 8.4 (7.4-10.4) fL Neut % (Auto) 76.0 % Lymph % (Auto) 14.8 % Whitley % (Auto) 7.3 % Eos % (Auto) 0.9 % Baso % (Auto) 0.5 % Neut # (Auto) 5.85 (1.8-7.7) 10^3/u L Lymph # (Auto) 1.1 (0.8-4.8) 10^3/u L Whitley # (Auto) 0.6 (0.2-0.9) 10^3/u L Eos # (Auto) 0.1 (0.0-0.8) 10^3/u L Baso # (Auto) 0.0 (0.0-0.1) 10^3/u L Nucleated RBC % (a uto) 0 % Nucleated RBCs # 0.0 /100WBC Specimen Type Arterial Sample Site Radial, left ABG pH 7.55 H (7.35-7.45) ABG pCO2 25.6 L (35-45) mmHg ABG pO2 131.0 H (80.0-100.0) mmH g ABG HCO3 22.5 (22-26) mmol/L ABG O2 Saturation 100.0 ABG Base Excess 1.0 (-2.0-2.0) mmol/ L Steve Test Pos A-a O2 Gradient Not Reportable Hematocrit 32.7 L (37-47) % Hgb O2 Saturation 98.5 (95-100) % Carboxyhemoglobin 0.7 (0.4-20.1) %THgb Methemoglobin 0.8 (0.4-1.5) % Total Hemoglobin 10.7 L (12-16) g/dL Ionized Calcium 1.2 (1.1-1.4) mmol/L O2 Delivery Device None FiO2 21.0 % Gas Check Pad Maker ID Ed Sodium 134 L 137.0 (136-145) mmol/L Potassium 3.9 3.6 (3.5-5.1) mmol/L Chloride 99 (98-107) mmol/L Carbon Dioxide 24 (22-29) mmol/L Anion Gap 14.9 (5-19) BUN 13 (6-20) mg/dL Creatinine 0.8 (0.5-0.9) mg/dL GFR Calculation 79.0 L (90-130) mL/min Glucose 165 H 169.0 H (65-115) mg/dL Calculated Osmolal ity 278 L (285-295) mOsm/k g Calcium 9.0 (8.5-10.5) mg/dL Total Bilirubin 0.2 (0.15-1.2) mg/dL AST 15 (0-32) U/L ALT 15 (0-33) U/L Alkaline Phosphata se 118 H (35-105) IU/L Total Protein 7.7 (6.6-8.7) g/dL Albumin 4.1 (3.5-5.2) g/dL Globulin 3.6 (1.3-4.6) g/dL Lipase 41 (13-60) U/L Urine Color (Yellow) Urine Appearance (CLEAR) Urine pH (5-7) Ur Specific Gravit y (1.005-1.030) Urine Protein (Negative) Urine Glucose (UA) (Normal) Urine Ketones (Negative) Urine Blood (Negative) Urine Nitrate (Negative) Urine Bilirubin (NEGATIVE) Urine Urobilinogen (Negative) mg/dL Ur Leukocyte Estephania ase (Negative) Urine RBC (0-2) /hpf Urine WBC (0-5) /hpf Ur Squamous Epith Cells (0-5) Amorphous Sediment Urine Bacteria (NONE) Urine Mucus 03/17/20 Range/Units 09:04 WBC (4.0-10.0) 10^3/ uL RBC (4.1-5.3) 10^6/u L Hgb (11.5-15.3) g/dL Hct (37.0-47.0) % MCV (81-99) fL MCH (28.0-34.0) pg MCHC (30.0-36.0) g/dL RDW (12.1-15.1) % Plt Count (130-400) 10^3/c mm MPV (7.4-10.4) fL Neut % (Auto) % Lymph % (Auto) % Whitley % (Auto) % Eos % (Auto) % Baso % (Auto) % Neut # (Auto) (1.8-7.7) 10^3/u L Lymph # (Auto) (0.8-4.8) 10^3/u L Whitley # (Auto) (0.2-0.9) 10^3/u L Eos # (Auto) (0.0-0.8) 10^3/u L Baso # (Auto) (0.0-0.1) 10^3/u L Nucleated RBC % (a uto) % Nucleated RBCs # /100WBC Specimen Type Sample Site ABG pH (7.35-7.45) ABG pCO2 (35-45) mmHg ABG pO2 (80.0-100.0) mmH g ABG HCO3 (22-26) mmol/L ABG O2 Saturation ABG Base Excess (-2.0-2.0) mmol/ L Steve Test A-a O2 Gradient Hematocrit (37-47) % Hgb O2 Saturation (95-100) % Carboxyhemoglobin (0.4-20.1) %THgb Methemoglobin (0.4-1.5) % Total Hemoglobin (12-16) g/dL Ionized Calcium (1.1-1.4) mmol/L O2 Delivery Device FiO2 % Gas Check Pad Maker ID Sodium (136-145) mmol/L Potassium (3.5-5.1) mmol/L Chloride (98-107) mmol/L Carbon Dioxide (22-29) mmol/L Anion Gap (5-19) BUN (6-20) mg/dL Creatinine (0.5-0.9) mg/dL GFR Calculation (90-130) mL/min Glucose (65-115) mg/dL Calculated Osmolal ity (285-295) mOsm/k g Calcium (8.5-10.5) mg/dL Total Bilirubin (0.15-1.2) mg/dL AST (0-32) U/L ALT (0-33) U/L Alkaline Phosphata se (35-105) IU/L Total Protein (6.6-8.7) g/dL Albumin (3.5-5.2) g/dL Globulin (1.3-4.6) g/dL Lipase (13-60) U/L Urine Color Straw (Yellow) Urine Appearance Clear (CLEAR) Urine pH 7 (5-7) Ur Specific Gravit y 1.010 (1.005-1.030) Urine Protein Trace (Negative) Urine Glucose (UA) Norm (Normal) Urine Ketones Negative (Negative) Urine Blood Neg (Negative) Urine Nitrate Negative (Negative) Urine Bilirubin Neg (NEGATIVE) Urine Urobilinogen Norm (Negative) mg/dL Ur Leukocyte Estephania ase Trace H (Negative) Urine RBC 0-4 H (0-2) /hpf Urine WBC 0-4 H (0-5) /hpf Ur Squamous Epith Cells 0-4 H (0-5) Amorphous Sediment Not Reportable Urine Bacteria Trace (NONE) Urine Mucus Trace Discharge Plan Discharge Patient Disposition: Home Clinical Impression: Diabetic gastroparesis, Osteomyelitis Condition: Stable Prescriptions: No Action gabapentin 300 mg Capsule 300 mg PO QID RF: 0 ferrous sulfate 325 mg (65 mg iron) Tablet,Delayed Release (Dr/Ec) 325 mg PO BIDWM Qty: 60 RF: 0 sucralfate [Carafate] 1 gram Tablet 1 g PO TID RF: 0 buspirone 10 mg Tablet 10 mg PO BID RF: 0 vancomycin 750 mg recon soln 750 mg IV Q12H 42 Days Qty: 90 RF: 0 dicyclomine 10 mg capsule 10 mg PO QID Qty: 20 RF: 0 ondansetron 4 mg tablet,disintegrating 4 mg PO Q6H PRN (Reason: nausea and vomiting) Qty: 10 RF: 0 metoclopramide HCl 10 mg tablet 10 mg PO QID RF: 0 lorazepam [Ativan] 1 mg tablet 1 mg PO Q6H PRN (Reason: nausea and vomiting) Qty: 14 RF: 0 clopidogrel [Plavix] 75 mg Tablet 75 mg PO DAILY RF: 0 aspirin [Aspir-81] 81 mg Tablet,Delayed Release (Dr/Ec) 81 mg PO DAILY RF: 0 carvedilol 3.125 mg tablet 3.125 mg PO Q12H RF: 0 insulin lispro [Humalog U-100 Insulin] 100 unit/mL Solution See Rx Instructions .ROUTE .COMPLEX RF: 0 Lantus Solostar U-100 Insulin 100 unit/mL (3 mL) Insulin Pen 5 unit SUBCUT BEDTIME RF: 0 pantoprazole 40 mg tablet,delayed release (DR/EC) 40 mg PO DAILY Qty: 30 RF: 0 Discharge Orders: Discharge Order (Routine); Ordered 03/17/20 Ordered By: Adama Ceballos Discharge Diet: Clear Liquid Discharge Activity: Limit activity as instructed Patient Instructions: Diabetic gastroparesis (GEN), Clear Liquid Diet (ED) Activity Restrictions/Additional Instructions: Clear liquid diet x48 hours. Continue Reglan as previously prescribed can use Ativan as a supplement. Follow-up with compliance quality performance analyst as previously scheduled Discharge Date/Time: 03/17/20 11:13 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 Code ED Ceramic Coater for Kim Fwd Exam Comprehensive
[2020-03-17 09:09] LABS: Alanine Aminotransferase 15 U/L (0-33); Albumin Level 4.1 g/dL (3.5-5.2); Alkaline Phosphatase 118 IU/L (35-105); Anion Gap 14.9 (5-19); Aspartate Amino Transferase 15 U/L (0-32); Blood Urea Nitrogen 13 mg/dL (6-20); Carbon Dioxide 24 mmol/L (22-29); Chloride 99 mmol/L (98-107); Globulin 3.6 g/dL (1.3-4.6); Glucose 165 mg/dL (65-115); Lipase 41 U/L (13-60); Osmolality Calculated 278 mOsm/kg (285-295); Potassium 3.9 mmol/L (3.5-5.1); Sodium 134 mmol/L (136-145); Total Bilirubin 0.2 mg/dL (0.15-1.2); Total Protein 7.7 g/dL (6.6-8.7)
[2020-03-17 09:11] LABS: ABG PCO2 25.6 mmHg (35-45); ABG PH Result 7.55 (7.35-7.45); Arterial Blood Gas Hematocrit 32.7 % (37-47); Blood Gas Allen Test Pos; Blood Gas Sample Type Arterial; Carboxyhemoglobin 0.7 %THgb (0.4-20.1); HCO3 ABG 22.5 mmol/L (22-26); HGB O2 Sat 98.5 % (95-100); Ionized Calcium Level - ABG 1.2 mmol/L (1.1-1.4); Methemoglobin 0.8 % (0.4-1.5); Potassium Level - ABG 3.6 mmol/L (3.5-5.0); Total Hemoglobin 10.7 g/dL (12-16)
[2020-03-17 09:13] LABS: Blood Gas Operator Identificat ED; Blood Gas Sample Site Radial, left
[2020-03-17 09:20] LABS: Urine Appearance Clear (CLEAR); Urine Color Straw (Yellow); pH Urine 7 (5-7)
[2020-03-17 09:21] LABS: Add Urine Microscopic? YES; Bilirubin Urine Neg (NEGATIVE); Blood Urine Neg (Negative); Glucose Urine UA Norm (Normal); Ketones Urine Negative (Negative); Leukocyte Esterase Urine Trace (Negative); Nitrate Urine Negative (Negative); Protein Urine Trace (Negative); Urobilinogen Urine Norm (Negative)
[2020-03-17 09:22] LABS: RBC Urine 0-4 /hpf (0-2); Squamous Epithelial Cell Urine 0-4 (0-5); WBC Urine 0-4 /hpf (0-5)
[2020-03-17 09:23] LABS: Add Urine Culture? No; Bacteria Urine TRACE; Mucus Urine TRACE
[2020-03-17 09:39] VITALS: BP 187/131; PULSE 97; RESP 16; O2SAT 99
[2020-03-17] MEDS: hyDRALAzine 20 mg/mL INJ 1 mL 10 MG IVP (09:40)
[2020-03-17 09:57] VITALS: BP 186/83; PULSE 106; RESP 16; O2SAT 96
--- NOTE | 2020-03-17 09:59 | US_ITS ---
WS: [id number] ULTRASOUND PELVIS TECHNIQUE: Transabdominal and transvaginal. ULTRASOUND PELVIS TECHNIQUE: Transabdominal. Transvaginal. CLINICAL INFORMATION: pain : ? COMPARISON: February 26, 2019 FINDINGS: Technically limited examination due to pain. Uterus Orientation: Anteverted. Size: 4.99 cm x 2.8 cm x 2.4 cm. Masses: None. Cervix: cm. Endometrium: Normal. Endometrium thickness: 0.4 cm. Adnexa: Normal. Right ovary size: 3.1 cm x 2.0 cm x 2.0 cm. Right ovary volume: 6.4 ccm3. Left ovary size: 2.6 cm x 1.2 cm x 1.4 cm. Left ovary volume: 2.4 ccm3 Free fluid: None. Other findings: None. US/US pelvic with transvaginal IMPRESSION: 1. Uterus is normal in appearance with normal endometrium measuring 3.8 mm. 2. Both ovaries are unremarkable in appearance. 3. No free fluid in the cul-de-sac.
[2020-03-17 10:30] VITALS: BP 172/88; PULSE 107; RESP 18; TEMP 36.5; O2SAT 96
[2020-03-17] MEDS: lactated ringers 1,000 ML 999 ML IV (10:54)
[2020-03-17 11:13] VITALS: BP 156/90; PULSE 112; RESP 18; TEMP 36.6; O2SAT 98
== END 2020-03-17 11:13 | disposition home or self-care (01) ==
PROVIDERS: Emergency Provider Family Medicine
DX: E10.43 Type 1 diabetes mellitus with diabetic autonomic (poly)neuropathy (principal); K31.84 Gastroparesis; M86.9 Osteomyelitis, unspecified; Z79.02 Long term (current) use of antithrombotics/antiplatelets; Z79.82 Long term (current) use of aspirin; Z79.4 Long term (current) use of insulin; E10.22 Type 1 diabetes mellitus with diabetic chronic kidney disease; N18.2 Chronic kidney disease, stage 2 (mild); E78.5 Hyperlipidemia, unspecified; I25.10 Atherosclerotic heart disease of native coronary artery without angina pectoris; Z89.512 Acquired absence of left leg below knee; Z87.891 Personal history of nicotine dependence
CPT/HCPCS: 12345; 36600; 74022; 76830; 76856; 80051; 80053; 81001; 81003; 82810; 83690; 83986; 85025; 96360; 96361; 96365; 96366; 96375; 99283; 99284; J0360; J1630; J2060; J7030

== ENCOUNTER 2020-03-18 08:05 | Outpatient (RCR) | payer SELFPAY ==
[2020-03-18 08:10] VITALS: BP 166/95; PULSE 83; RESP 20; TEMP 36.9; O2SAT 100; BMI 20.7
[2020-03-18] MEDS: vancomycin 750 MG in sodium chloride 0.9% 250 ML 250 MG IV (09:00)
--- NOTE | 2020-03-18 09:45 | PC.NURSE ---
0800-Pt arrived to appt 2 hours late. It was reported to me that pt misses appts, and is often late. Pt had been in the ED yesterday, and said that she told them that her PICC line dressing was coming off, but they didn't do anything about it. So when pt arrived, the PICC line dressing was off, but pt had applied 2 large bandages to site, and wrapped coban around it. Site was unremarkable and did not look to be infected in any way. External catheter was 3cm out, but line had good blood return, and flushed well. Site cleaned and new dressing applied, and end cap changed.
--- NOTE | 2020-03-18 14:36 | SUR.PREOP ---
Patient has been scheduled for BID infusions 0800/1700 all week. Patient has only come in for infusion at 1700 Wednesday 03/14 and 0800 Sunday 03/18; she has already called to say she is not coming for 1700 dose 03/18. Letty with case management is going to contact patient about PO antibiotic rx and possible removal of picc line for noncompliance. She will notify us of what we need to do with her on our schedule.
--- NOTE | 2020-03-18 15:02 | PC.SOCIAL ---
Post D/C Note: Received a call from Dr. Holley who states that patient did not show up to her appointment yesterday in his clinic to discuss the option of her changing from IV infusions to PO. Dr. Holley states that when he spoke with pharmacist Rolf, they discussed that Levaquin 750mg PO daily would be an alternate, however Dr. Holley wants patient to understand this is sub-optimal treatment compared to IV Vancomycin BID. Dr. Holley states that inpatient pharmacy should be able to provide the needed length of therapy. Called inpatient pharmacy and spoke with Ravinder, who states that it would be for 6 weeks. Called patient and relayed this information to her, explaining that we will try this treatment plan although it is sub-optimal due to it being difficult for her to get to [facility] for BID Vanc infusions and her non-compliance with coming twice daily (according the the outpatient surgery staff). Also explained to patient that Dr. Holley wants her to follow up with Dr. Soto in the clinic this week as he will be out of office for two weeks. Patient verbalizes understanding of this and states she has Dr. Soto's number and will call to get an appointment with him for next week. She is supposed to come to [facility] in the AM to get an infusion and at this time, she can get her PICC line discontinued. V/O for Levaquin 750mg PO daily #42 no refills called into [facility]. Called Dr. Holley back and updated him on all the above, patient's response, and the plan for her to come to [facility] tomorrow to get PICC removed and after that machine operator picker her Levaquin at the pharmacy. He agrees to the plan. Called Outpatient Surgery dept and order faxed to them for removal of PICC line when she comes in tomorrow.
== END 2020-03-18 23:59 | disposition home or self-care (01) ==
LOC: GILAB 08:05
PROVIDERS: Visit Provider Family Medicine
DX: Z45.2 Encounter for adjustment and management of vascular access device (principal)
CPT/HCPCS: 96365; J3370; J7050

== ENCOUNTER 2020-03-19 06:33 | Emergency (ER) | payer SELFPAY ==
[2020-03-19 06:40] VITALS: BP 202/120; PULSE 119; RESP 22; TEMP 36.2; O2SAT 95; BMI 20.7
--- NOTE | 2020-03-19 06:48 | ED_ITS ---
HPI - Abdominal Pain General: Chief Complaint: Abdominal Pain Stated Complaint: RIGHT SIDE AND BACK PAIN Time Seen by Provider: 03/19/20 06:45 History of Present Illness: HPI narrative: 39-year-old female returns to the emergency room with a complaint of abdominal pain. She is had multiple visits this week and in the past 2 months she has had 8 CTs of the abdomen as well as several other CTs of her extremity. None of which have had any findings. Yesterday she had pelvic pain pelvic ultrasound is unremarkable a flat and upright of the abdomen showed no signs of free air or bowel obstruction. She is given IV fluids and discharged. A bystander reported to us that immediately after she left she took a wheelchair and went to a local convenience store where she had someone purchase her a hot dog and a soda. She then returned to the ER waiting for her to pick her up. Today she returns complaining of further abdominal pain. She is complaining of right lower quadrant abdominal pain radiating into her back. This is been a frequent complaint in the past. She has also had severe nausea and vomiting due to diabetic gastroparesis in the past her diabetic gastroparesis was bad enough she eventually had a PEG tube placed. Currently she is undergoing twice daily vancomycin infusions for osteomyelitis of her stump on her left leg. Earlier this month when she was in with complaint of abdominal pain on exam we had noticed a small area on her incision that was abraded and open and she had a large amount of swelling and erythema on CT there is an abscess and evidence of osteomyelitis she was admitted taken to surgery this was drained and a bone biopsy was done confirming the osteomyelitis. Exam today is disproportionate to findings. She is currently on IV vancomycin she has been on a lot of different oral antibiotics recently she denies any mucousy stools bloody stools watery stools etc. MD elicited complaint: abdominal pain Pertinent past history: other (Multiple hospital admissions and ER visits with complaint of abdominal pain resulting in 8 CTs in the of the abdomen in the last 2 months with no findings. She has a history of severe diabetic gastroparesis.) Onset (ago): minute(s) Pain Consistency: constant Location: RLQ Quality: cramping Radiation: R flank Migration to: no migration Exacerbating factors: nothing Relieving factors: nothing Context: other (Recurrent abdominal pain and cramping with diabetic gastroparesis) Associated Symptoms: Reports GI cramping, nausea and vomiting; Denies chills, coffee ground emesis, diarrhea, dysuria, fever(s), hematemesis, fecal incontinence, loose stools and melena Treatments prior to arrival: other (Antiemetics including ondansetron, Ativan, Reglan) Related Data: Date of Last Menstrual Period: 07/24/18 Review of Systems Const: Denies: fever(s) or chills ENMT: Denies: throat pain, ear or mastoid pain, nasal discharge or nasal congestion Card: Denies: chest pain, edema, dyspnea on exertion or orthopnea Resp: Denies: dyspnea, productive cough or non-productive cough GI: Reports: nausea, vomiting and GI cramping; Denies: hematemesis, coffee ground emesis, diarrhea, fecal incontinence or melena : Denies: difficulty voiding, dysuria, urinary frequency or urinary urgency Skin/Breast: Denies: rash or pruritus PFSH ED PFSH: Medical History (Updated 03/19/20 @ 08:00 by Adama Ceballos DO) CKD (chronic kidney disease) stage 2, GFR 60-89 ml/min -secondary to diabetic nephropathy -baseline Cr is around 1.0 Coronary artery disease -hx of CAD s/p stenting Diabetes mellitus type 1 Diabetic gastroparesis -secondary to DM type I Foot osteomyelitis, right Hyperlipidemia Type 1 diabetes mellitus -noted hx of DM type I complicated by nephropathy and neuropathy -A1c-7.5 (12/2019) -Accu-Cheks, scheduled and ISS, hypoglycemia precautions Surgical History (Updated 03/15/20 @ 19:25 by Mele Friedman MD) Below-knee amputation of left lower extremity H/O exploratory laparotomy x 3 History of amputation of right forefoot Hx of cholecystectomy Previous section x 3 S/P coronary artery stent placement x 1 S/P percutaneous endoscopic gastrostomy (PEG) tube placement Family History Unknown Diabetes extensive, type II Other CHF (congestive heart failure) Social History Smoking and tobacco status: former smoker Quit status (tobacco): has quit using tobacco Former quit date comment: 15 yrs ago Alcohol intake: former Former alcohol use details: 15 yrs ago Household members: spouse Marital status: Sexually active: Yes (1, ) Female Reproductive History: Date of last menstrual period: 07/24/18 Physical Exam Const: COMMON NORMALS: no acute distress GENERAL APPEARANCE: cooperative and comfortable ORIENTATION/CONSCIOUSNESS: Yes awake, Yes oriented to person, Yes oriented to place and Yes oriented to time HENMT: COMMON NORMALS: normocephalic and atraumatic HEAD & SCALP: normocephalic and atraumatic Eye: COMMON NORMALS: Equal, round and reactive pupils present, EOMs intact bilaterally, conjunctivae normal and no scleral icterus CONJUNCTIVA: Yes conjunctivae normal PUPIL: Yes Equal, round and reactive pupils present Neck/C-Spine: COMMON NORMALS: full ROM, no lymphadenopathy, supple and no JVD Lymph: LYMPHATIC: no lymphadenopathy noted and no lymphedema noted Resp: COMMON NORMALS: normal respiratory effort, No retractions, No use of ac cessory muscles and clear to auscultation bilaterally AUSCULTATION: clear to auscultation bilaterally Cardio: COMMON NORMALS: no JVD, regular rate, regular rhythm and No murmurs present (Cardio) RATE: regular rate RHYTHM: regular rhythm GI: COMMON NORMALS: No hepatosplenomegaly present AUSCULTATION: Yes normoactive bowel sounds PALPATION: Yes Tenderness to palpation present (GI), No Guarding due to palpation present (GI) and Yes No hepatosplenomegaly present OTHER: With light touch to the skin and pinching of the subcutaneous tissue no pressure transmitted to the abdominal cavity or abdominal wall patient complains of severe pain. Exam disproportionate to complaint. Extremity: COMMON NORMALS: normal to inspection, capillary refill normal, no clubbing, cyanosis or edema, no calf tenderness and no pedal edema Neuro: SENSORIUM/ORIENTATION: Yes oriented to person, Yes oriented to place and Yes oriented to time Skin: COMMON NORMALS: no rashes or lesions noted GENERAL SKIN EXAM: no rashes or lesions noted Course Vital Signs: Vital signs: Vital Signs Temperature 97.1 F L 03/19/20 06:40 Pulse Rate 119 H 03/19/20 06:40 Respiratory Rate 22 H 03/19/20 06:40 Blood Pressure 202/120 03/19/20 06:40 Pulse Oximetry 95 03/19/20 06:40 MDM - Abdominal Pain MDM Narrative: Medical decision making narrative: Ms. Solomon presents a difficult case. She is repeatedly in the emergency room with similar complaints she is had multiple CTs without any significant findings. I think she probably does have severe diabetic gastroparesis I am concerned that giving her regular scheduled narcotics will actually slower GI transit and worsen things. There is no evidence of C. difficile colitis. [address] showed a little bit of colitis but that had resolved on a follow-up CT. We have tried nonnarcotic medications when she comes and we are encouraging her to go to GI she may need to have the PEG tube replaced. I think she would also benefit from being at the pain clinic. Unfortunately at this point with no significant findings on multiple visits and multiple imaging not sure there is really much we can do for here in the emergency room. I think her best bet is going to be seeing gastroenterology and likely she will need to be seen at the pain clinic as well. Discussed with the patient I think the best thing for her is a nonnarcotic approach we gave her several medications including IV Tylenol ketorolac Zofran low-dose Haldol which has been effective for nausea in the past. She became upset she wants narcotic pain medications discussed with her very briefly that I do not think that that would be helpful nor is it advised at this point since this is more diabetic gastroparesis. She was advised that anytime she can return that we should finish the work-up to make sure there is no sign of infection in the urine other anticipated testing would have been to consider possibly getting a ultrasound of the kidney urinary tract and bladder depending on the results of the UA. She was advised of this and still wishes to leave. She was told she is welcome to return at any time if she has problems. Patient wheeled herself from the exam room to the lobby without any difficulty. Lab Data: Labs: Lab Results 03/19/20 03/19/20 03/19/20 Range/Units 07:10 07:10 07:10 WBC 7.7 (4.0-10.0) 10^3/ uL RBC 3.86 L (4.1-5.3) 10^6/u L Hgb 10.9 L (11.5-15.3) g/dL Hct 34.1 L (37.0-47.0) % MCV 88.3 (81-99) fL MCH 28.2 (28.0-34.0) pg MCHC 32.0 (30.0-36.0) g/dL RDW 14.1 (12.1-15.1) % Plt Count 423 H (130-400) 10^3/c mm MPV 8.2 (7.4-10.4) fL Neut % (Auto) 77.3 % Lymph % (Auto) 14.7 % [place] % (Auto) 5.6 % Eos % (Auto) 1.6 % Baso % (Auto) 0.4 % Neut # (Auto) 5.97 (1.8-7.7) 10^3/u L Lymph # (Auto) 1.1 (0.8-4.8) 10^3/u L [place] # (Auto) 0.4 (0.2-0.9) 10^3/u L Eos # (Auto) 0.1 (0.0-0.8) 10^3/u L Baso # (Auto) 0.0 (0.0-0.1) 10^3/u L Nucleated RBC % (a uto) 0 % Nucleated RBCs # 0.0 /100WBC Sodium 138 (136-145) mmol/L Potassium 3.8 (3.5-5.1) mmol/L Chloride 100 (98-107) mmol/L Carbon Dioxide 26 (22-29) mmol/L Anion Gap 15.8 (5-19) BUN 18 (6-20) mg/dL Creatinine 0.8 (0.5-0.9) mg/dL GFR Calculation 79.0 L (90-130) mL/min Glucose 169 H (65-115) mg/dL Calculated Osmolal ity 286 (285-295) mOsm/k g Lactic Acid 0.8 (0.5-2.2) mmol/L Calcium 10.2 (8.5-10.5) mg/dL Total Bilirubin 0.2 (0.15-1.2) mg/dL AST 15 (0-32) U/L ALT 13 (0-33) U/L Alkaline Phosphata se 135 H (35-105) IU/L Creatine Kinase 79 (26-192) U/L Total Protein 8.0 (6.6-8.7) g/dL Albumin 4.4 (3.5-5.2) g/dL Globulin 3.6 (1.3-4.6) g/dL Lipase 49 (13-60) U/L Serum Ketones (Negative) 03/19/20 Range/Units 07:10 WBC (4.0-10.0) 10^3/ uL RBC (4.1-5.3) 10^6/u L Hgb (11.5-15.3) g/dL Hct (37.0-47.0) % MCV (81-99) fL MCH (28.0-34.0) pg MCHC (30.0-36.0) g/dL RDW (12.1-15.1) % Plt Count (130-400) 10^3/c mm MPV (7.4-10.4) fL Neut % (Auto) % Lymph % (Auto) % [place] % (Auto) % Eos % (Auto) % Baso % (Auto) % Neut # (Auto) (1.8-7.7) 10^3/u L Lymph # (Auto) (0.8-4.8) 10^3/u L [place] # (Auto) (0.2-0.9) 10^3/u L Eos # (Auto) (0.0-0.8) 10^3/u L Baso # (Auto) (0.0-0.1) 10^3/u L Nucleated RBC % (a uto) % Nucleated RBCs # /100WBC Sodium (136-145) mmol/L Potassium (3.5-5.1) mmol/L Chloride (98-107) mmol/L Carbon Dioxide (22-29) mmol/L Anion Gap (5-19) BUN (6-20) mg/dL Creatinine (0.5-0.9) mg/dL GFR Calculation (90-130) mL/min Glucose (65-115) mg/dL Calculated Osmolal ity (285-295) mOsm/k g Lactic Acid (0.5-2.2) mmol/L Calcium (8.5-10.5) mg/dL Total Bilirubin (0.15-1.2) mg/dL AST (0-32) U/L ALT (0-33) U/L Alkaline Phosphata se (35-105) IU/L Creatine Kinase (26-192) U/L Total Protein (6.6-8.7) g/dL Albumin (3.5-5.2) g/dL Globulin (1.3-4.6) g/dL Lipase (13-60) U/L Serum Ketones Negative (Negative) Discharge Plan Discharge Patient Disposition: Left Against Medical Advice Clinical Impression: Chronic abdominal pain, Right flank pain, chronic, Diabetic gastroparesis, Osteomyelitis Condition: Stable Prescriptions: No Action gabapentin 300 mg Capsule 300 mg PO QID RF: 0 ferrous sulfate 325 mg (65 mg iron) Tablet,Delayed Release (Dr/Ec) 325 mg PO BIDWM Qty: 60 RF: 0 sucralfate [Carafate] 1 gram Tablet 1 g PO TID RF: 0 buspirone 10 mg Tablet 10 mg PO BID RF: 0 vancomycin 750 mg recon soln 750 mg IV Q12H 42 Days Qty: 90 RF: 0 dicyclomine 10 mg capsule 10 mg PO QID Qty: 20 RF: 0 ondansetron 4 mg tablet,disintegrating 4 mg PO Q6H PRN (Reason: nausea and vomiting) Qty: 10 RF: 0 metoclopramide HCl 10 mg tablet 10 mg PO QID RF: 0 lorazepam [Ativan] 1 mg tablet 1 mg PO Q6H PRN (Reason: nausea and vomiting) Qty: 14 RF: 0 clopidogrel [Plavix] 75 mg Tablet 75 mg PO DAILY RF: 0 aspirin [Aspir-81] 81 mg Tablet,Delayed Release (Dr/Ec) 81 mg PO DAILY RF: 0 carvedilol 3.125 mg tablet 3.125 mg PO Q12H RF: 0 insulin lispro [Humalog U-100 Insulin] 100 unit/mL Solution See Rx Instructions .ROUTE .COMPLEX RF: 0 Lantus Solostar U-100 Insulin 100 unit/mL (3 mL) Insulin Pen 5 unit SUBCUT BEDTIME RF: 0 pantoprazole 40 mg tablet,delayed release (DR/EC) 40 mg PO DAILY Qty: 30 RF: 0 Patient Instructions: Cholecystitis (ED), Abdominal Pain (ED) 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 Code ED [employer] Ro[employer] Bolter for Kim Fwd Exam Comprehensive
[2020-03-19 07:18] LABS: Basophils % 0.4 %; Eosinophils # 0.1 10^3/uL (0.0-0.8); Eosinophils % 1.6 %; Hematocrit 34.1 % (37.0-47.0); Hemoglobin 10.9 g/dL (11.5-15.3); Lymphocytes # 1.1 10^3/uL (0.8-4.8); Lymphocytes % 14.7 %; Mean Corpuscular Hemoglobin 28.2 pg (28.0-34.0); Mean Corpuscular Volume 88.3 fL (81-99); Mean Platelet Volume 8.2 fL (7.4-10.4); Monocytes # 0.4 10^3/uL (0.2-0.9); Monocytes % 5.6 %; Neutrophils # 5.97 10^3/uL (1.8-7.7); Neutrophils % 77.3 %; Nucleated Red Blood Cells % 0 %; Platelet Count 423 10^3/cmm (130-400); Red Blood Count 3.86 10^6/uL (4.1-5.3); Red Cell Distribution Width 14.1 % (12.1-15.1); White Blood Count 7.7 10^3/uL (4.0-10.0)
[2020-03-19] MEDS: hyDRALAzine 20 mg/mL INJ 1 mL IVP (07:32)
[2020-03-19] MEDS: sodium chloride 0.9% 1,000 ML 999 ML IV (07:33)
[2020-03-19] MEDS: haloperidol inj 5 mg/mL INJ 1 mL 2.5 MG IVP (07:36)
[2020-03-19] MEDS: ketorolac 30 mg/mL INJ IVP (07:36)
[2020-03-19] MEDS: ondansetron 2 mg/ML SDV 2 mL 4 MG IVP (07:37)
[2020-03-19 07:41] LABS: Ketone (Acetest) Serum Negative (Negative)
[2020-03-19 07:42] LABS: Lactic Sepsis W/Reflex 0.8 mmol/L (0.5-2.2)
[2020-03-19 07:43] LABS: Alanine Aminotransferase 13 U/L (0-33); Albumin Level 4.4 g/dL (3.5-5.2); Alkaline Phosphatase 135 IU/L (35-105); Anion Gap 15.8 (5-19); Aspartate Amino Transferase 15 U/L (0-32); Blood Urea Nitrogen 18 mg/dL (6-20); Calcium 10.2 mg/dL (8.5-10.5); Carbon Dioxide 26 mmol/L (22-29); Chloride 100 mmol/L (98-107); Creatine Phosphokinase 79 U/L (26-192); Globulin 3.6 g/dL (1.3-4.6); Glucose 169 mg/dL (65-115); Lipase 49 U/L (13-60); Osmolality Calculated 286 mOsm/kg (285-295); Potassium 3.8 mmol/L (3.5-5.1); Sodium 138 mmol/L (136-145); Total Bilirubin 0.2 mg/dL (0.15-1.2)
--- NOTE | 2020-03-19 08:14 | PC.NURSE ---
after meds given and patient found out she wasnt getting any narcotics she was angry and stated the doctor wasnt dong anything for her she was leaving
== END 2020-03-19 08:18 | disposition left against medical advice (07) ==
PROVIDERS: Emergency Provider Family Medicine
DX: E10.43 Type 1 diabetes mellitus with diabetic autonomic (poly)neuropathy (principal); K31.84 Gastroparesis; M86.9 Osteomyelitis, unspecified; Z79.82 Long term (current) use of aspirin; Z79.4 Long term (current) use of insulin; G89.29 Other chronic pain; R10.9 Unspecified abdominal pain; E10.22 Type 1 diabetes mellitus with diabetic chronic kidney disease; N18.2 Chronic kidney disease, stage 2 (mild); I25.10 Atherosclerotic heart disease of native coronary artery without angina pectoris; E78.5 Hyperlipidemia, unspecified; Z89.512 Acquired absence of left leg below knee; Z87.891 Personal history of nicotine dependence
CPT/HCPCS: 12345; 80053; 82009; 82550; 83605; 83690; 85025; 96361; 96374; 96375; 99281; 99283; J0131; J0360; J1630; J1885; J2405; J7030

== ENCOUNTER 2020-03-19 08:21 | Outpatient (RCR) | payer SELFPAY ==
--- NOTE | 2020-03-19 09:50 | SUR.PREOP ---
patient presented to ER for pain. Patient left AMA. Patient refused vancomycin infusion. PICC line removed. Patient instructed to excelsior picker po antibiotic at [facility] employee pharmacy
== END 2020-04-18 23:59 | disposition home or self-care (01) ==
LOC: GILAB 08:21
PROVIDERS: Visit Provider Family Medicine
DX: Z53.21 Procedure and treatment not carried out due to patient leaving prior to being seen by health care provider (principal)

== ENCOUNTER 2020-04-04 12:56 | Emergency (ER) | payer SELFPAY ==
[2020-04-04 12:58] VITALS: BP 151/100; PULSE 84; RESP 20; TEMP 36.6; O2SAT 100; BMI 21.4
[2020-04-04 13:11] VITALS: BP 168/102; PULSE 85; RESP 17; O2SAT 100
--- NOTE | 2020-04-04 13:20 | W.ED.FALL ---
HPI - Fall General: Chief Complaint: Fall Stated Complaint: RLQ pain s/p fall Time Seen by Provider: 04/04/20 13:19 History of Present Illness: HPI Narrative: 40-year-old female presents emergency room with complaint of right lower quadrant pain after a fall yesterday. She is complaining of right lower quadrant and suprapubic pain he is seen her for this before she has had multiple CTs and an ultrasound with no significant finding. She states she when she stumbled she landed on her stump and it was bleeding for a time. The bleeding is stopped. She denies any fever sweats chills vomiting or diarrhea she does have diabetic gastroparesis which is been a recurrent problem in the past. Reviewing the chart in the last few months she has had multiple abdominal CTs. MD complaint: fall Onset (ago): day(s) Fall from: standing Fall witnessed: yes, by family Place fall occurred: home Loss of consciousness: None Prolonged down time: no Symptoms prior to fall: none Context: tripped/slipped Location of injury: abdomen Location of injury - extremities: Left: lower leg Quality: aching Associated symptoms-after fall: Reports abdominal pain; Denies chest pain, confusion, difficulty walking, headache(s), hematuria, lightheadedness, neck pain, numbness, short of breath, vertigo or weakness Review of Systems Const: Denies: fever(s), chills, body aches, change in appetite, fatigue or malaise ENMT: Denies: throat pain, ear or mastoid pain, nasal discharge or nasal congestion Card: Denies: chest pain or lightheadedness Resp: Denies: dyspnea, productive cough or non-productive cough GI: Reports: abdominal pain : Denies: hematuria Musc: Denies: neck pain Skin/Breast: Denies: rash or pruritus Neuro: Denies: headache(s), difficulty walking, vertigo or confusion PFSH ED PFSH: Medical History CKD (chronic kidney disease) stage 2, GFR 60-89 ml/min -secondary to diabetic nephropathy -baseline Cr is around 1.0 Coronary artery disease -hx of CAD s/p stenting Diabetes mellitus type 1 Diabetic gastroparesis -secondary to DM type I Foot osteomyelitis, right Hyperlipidemia Type 1 diabetes mellitus -noted hx of DM type I complicated by nephropathy and neuropathy -A1c-7.5 (12/2019) -Accu-Cheks, scheduled and ISS, hypoglycemia precautions Surgical History Below-knee amputation of left lower extremity H/O exploratory laparotomy x 3 History of amputation of right forefoot Hx of cholecystectomy Previous section x 3 S/P coronary artery stent placement x 1 S/P percutaneous endoscopic gastrostomy (PEG) tube placement Family History Unknown Diabetes extensive, type II Other CHF (congestive heart failure) Social History Smoking and tobacco status: former smoker Quit status (tobacco): has quit using tobacco Former quit date comment: 15 yrs ago Alcohol intake: former Former alcohol use details: 15 yrs ago Household members: spouse Marital status: Sexually active: Yes (1, ) Female Reproductive History: Date of last menstrual period: 07/24/18 Physical Exam Const: COMMON NORMALS: no acute distress GENERAL APPEARANCE: cooperative and comfortable ORIENTATION/CONSCIOUSNESS: Yes awake, Yes oriented to person, Yes oriented to place and Yes oriented to time HENMT: COMMON NORMALS: normocephalic, atraumatic and hearing grossly normal bilaterally HEAD & SCALP: normocephalic and atraumatic Eye: COMMON NORMALS: Equal, round and reactive pupils present, EOMs intact bilaterally, conjunctivae normal and no scleral icterus CONJUNCTIVA: Yes conjunctivae normal PUPIL: Yes Equal, round and reactive pupils present Neck/C-Spine: COMMON NORMALS: full ROM, no lymphadenopathy, supple and no JVD Lymph: LYMPHATIC: no lymphadenopathy noted and no lymphedema noted Resp: COMMON NORMALS: normal respiratory effort, No retractions, No use of accessory muscles and clear to auscultation bilaterally AUSCULTATION: clear to auscultation bilaterally Cardio: COMMON NORMALS: no JVD, regular rate, regular rhythm and No murmurs present (Cardio) RATE: regular rate RHYTHM: regular rhythm GI: COMMON NORMALS: Soft to palpation and No hepatosplenomegaly present AUSCULTATION: Yes normoactive bowel sounds PALPATION: Yes Soft to palpation, No Tenderness to palpation present (GI), No Guarding due to palpation present (GI) and Yes No hepatosplenomegaly present Extremity: OTHER: Low the knee amputation on the left this wound dressing removed there is a 2 cm x 1 cm oblong opening at the suture line of the stump. It is granulating in with fresh granulation tissue there is no evidence of any new tear or laceration there is no active bleeding no evidence any acute cellulitis. Neuro: SENSORIUM/ORIENTATION: Yes oriented to person, Yes oriented to place and Yes oriented to time Skin: COMMON NORMALS: no rashes or lesions noted GENERAL SKIN EXAM: no rashes or lesions noted Course Vital Signs: Vital signs: Vital Signs Temperature 97.9 F 04/04/20 12:58 Pulse Rate 79 04/04/20 14:05 Respiratory Rate 20 H 04/04/20 14:05 Blood Pressure 151/93 04/04/20 14:05 Pulse Oximetry 100 04/04/20 14:05 MDM - Fall MDM Narrative: Medical decision making narrative: Reviewed findings with the patient x-ray still shows some residual osteomyelitis which she is being treated for on exam the wound on the stump actually looks good it is granulating and there is no sign of it being ripped open or active bleeding. Superficially there is not appear to be any active cellulitis. Her abdominal exam was generally benign and her white count and urine were normal I would not recommend doing another CT given the number of CT she has had. With a lately normal abdominal exam at this point I would not recommend any advanced imaging until there was some other findings suggestive of an acute process. Lab Data: Labs: Lab Results 04/04/20 04/04/20 04/04/20 Range/Units 13:12 13:12 13:51 WBC 8.1 (4.0-10.0) 10^3/ uL RBC 4.42 (4.1-5.3) 10^6/u L Hgb 12.3 (11.5-15.3) g/dL Hct 39.3 (37.0-47.0) % MCV 88.9 (81-99) fL MCH 27.8 L (28.0-34.0) pg MCHC 31.3 (30.0-36.0) g/dL RDW 13.7 (12.1-15.1) % Plt Count 409 H (130-400) 10^3/c mm MPV 8.5 (7.4-10.4) fL Neut % (Auto) 80.3 % Lymph % (Auto) 13.4 % [place] % (Auto) 4.7 % Eos % (Auto) 0.7 % Baso % (Auto) 0.5 % Neut # (Auto) 6.49 (1.8-7.7) 10^3/u L Lymph # (Auto) 1.1 (0.8-4.8) 10^3/u L [place] # (Auto) 0.4 (0.2-0.9) 10^3/u L Eos # (Auto) 0.1 (0.0-0.8) 10^3/u L Baso # (Auto) 0.0 (0.0-0.1) 10^3/u L Nucleated RBC % (a uto) 0 % Nucleated RBCs # 0.0 /100WBC Sodium 140 (136-145) mmol/L Potassium 3.7 (3.5-5.1) mmol/L Chloride 101 (98-107) mmol/L Carbon Dioxide 26 (22-29) mmol/L Anion Gap 16.7 (5-19) BUN 16 (6-20) mg/dL Creatinine 0.9 (0.5-0.9) mg/dL GFR Calculation 68.7 L (90-130) mL/min Glucose 134 H (65-115) mg/dL Calculated Osmolal ity 288 (285-295) mOsm/k g Calcium 10.4 (8.5-10.5) mg/dL Total Bilirubin 0.6 (0.15-1.2) mg/dL AST 23 (0-32) U/L ALT 24 (0-33) U/L Alkaline Phosphata se 158 H (35-105) IU/L Total Protein 8.8 H (6.6-8.7) g/dL Albumin 4.9 (3.5-5.2) g/dL Globulin 3.9 (1.3-4.6) g/dL Urine Color Yellow (Yellow) Urine Appearance Clear (CLEAR) Urine pH 5 (5-7) Ur Specific Gravit y 1.020 (1.005-1.030) Urine Protein 2+ H (Negative) Urine Glucose (UA) Norm (Normal) Urine Ketones Negative (Negative) Urine Blood Trace H (Negative) Urine Nitrate Negative (Negative) Urine Bilirubin Neg (NEGATIVE) Urine Urobilinogen Norm (Negative) mg/dL Ur Leukocyte Estephania ase Negative (Negative) Urine RBC 0-4 H (0-2) /hpf Urine WBC 0-4 H (0-5) /hpf Ur Squamous Epith Cells 0-4 H (0-5) Amorphous Sediment Not Reportable Urine Bacteria 1+ H (NONE) Urine Mucus 1+ Discharge Plan Discharge Patient Disposition: Home Clinical Impression: Fall, Acute osteomyelitis of left tibia, Diabetes mellitus, Diabetic gastroparesis Condition: Stable Prescriptions: No Action gabapentin 300 mg Capsule 300 mg PO QID RF: 0 ferrous sulfate 325 mg (65 mg iron) Tablet,Delayed Release (Dr/Ec) 325 mg PO BIDWM Qty: 60 RF: 0 sucralfate [Carafate] 1 gram Tablet 1 g PO TID RF: 0 buspirone 10 mg Tablet 10 mg PO BID RF: 0 dicyclomine 10 mg capsule 10 mg PO QID Qty: 20 RF: 0 ondansetron 4 mg tablet,disintegrating 4 mg PO Q6H PRN (Reason: nausea and vomiting) Qty: 10 RF: 0 metoclopramide HCl 10 mg tablet 10 mg PO QID RF: 0 lorazepam [Ativan] 1 mg tablet 1 mg PO Q6H PRN (Reason: nausea and vomiting) Qty: 14 RF: 0 Levaquin 750 mg tablet 750 mg PO DAILY RF: 0 clopidogrel [Plavix] 75 mg Tablet 75 mg PO DAILY RF: 0 aspirin [Aspir-81] 81 mg Tablet,Delayed Release (Dr/Ec) 81 mg PO DAILY RF: 0 carvedilol 3.125 mg tablet 3.125 mg PO Q12H RF: 0 insulin lispro [Humalog U-100 Insulin] 100 unit/mL Solution See Rx Instructions .ROUTE .COMPLEX RF: 0 Lantus Solostar U-100 Insulin 100 unit/mL (3 mL) Insulin Pen 5 unit SUBCUT BEDTIME RF: 0 pantoprazole 40 mg tablet,delayed release (DR/EC) 40 mg PO DAILY Qty: 30 RF: 0 Discharge Diet: Advance as tolerated Discharge Activity: Resume usual activity and Increase activity as tolerated Activity Restrictions/Additional Instructions: Follow-up with your primary care provider. If you have any worsening or change symptoms you can return. 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 Code ED Job Putter Up [employer] Ticket Preparer for Kim Mitchell
[2020-04-04 13:31] VITALS: BP 163/98; PULSE 83; RESP 17; O2SAT 100
--- NOTE | 2020-04-04 13:37 | XR_ITS ---
WS: [id number] EXAM: LEFT TIBIA AND FIBULA: 2 VIEWS DATE OF EXAMINATION: 04/04/2020, 1348 hours COMPARISON: Left leg CT exam from 03/08/2020 HISTORY: Patient is 40 years old with pain status post fall. FINDINGS: Again demonstrated are changes of a [id number] amputation. Overall bone density is decreased. Bon y proliferation along the distal tibia and fibula similar. Arterial vasculature changes are demonstra marcela. There is soft tissue edema at the stump site with a small amount air in the soft tissues suggest s an open injury. No extensive gas dissecting up into the lower limb. There is some slight bony loss seen anteriorly along the distal tibial diaphyseal bone. This is considered somewhat atypical for a b elow the knee amputation appearance. Concern for underlying osteomyelitis in the bone. XR/XR tibia fibula LT 2V [id number] IMPRESSION: Soft tissue swelling over the stump of the left [id number] amputation with air in the soft tissues suggests an open laceration injury. Small amount of bon y destruction along the anterior inferior margin of the bony distal tibia. Need to strongly consider the patient may have underlying osteomyelitis.
--- NOTE | 2020-04-04 13:47 | PC.NURSE ---
Pt up to BS with clean catch kit and instructions for urine sample.
[2020-04-04 13:50] LABS: Basophils % 0.5 %; Eosinophils # 0.1 10^3/uL (0.0-0.8); Eosinophils % 0.7 %; Hematocrit 39.3 % (37.0-47.0); Hemoglobin 12.3 g/dL (11.5-15.3); Lymphocytes # 1.1 10^3/uL (0.8-4.8); Lymphocytes % 13.4 %; Mean Corpuscular HGB Conc 31.3 g/dL (30.0-36.0); Mean Corpuscular Hemoglobin 27.8 pg (28.0-34.0); Mean Corpuscular Volume 88.9 fL (81-99); Mean Platelet Volume 8.5 fL (7.4-10.4); Monocytes # 0.4 10^3/uL (0.2-0.9); Monocytes % 4.7 %; Neutrophils # 6.49 10^3/uL (1.8-7.7); Neutrophils % 80.3 %; Nucleated Red Blood Cells % 0 %; Platelet Count 409 10^3/cmm (130-400); Red Blood Count 4.42 10^6/uL (4.1-5.3); Red Cell Distribution Width 13.7 % (12.1-15.1); White Blood Count 8.1 10^3/uL (4.0-10.0)
--- NOTE | 2020-04-04 13:55 | PC.NURSE ---
XR at bedside
[2020-04-04 14:05] VITALS: BP 151/93; PULSE 79; RESP 20; O2SAT 100
[2020-04-04 14:06] LABS: Alanine Aminotransferase 24 U/L (0-33); Albumin Level 4.9 g/dL (3.5-5.2); Alkaline Phosphatase 158 IU/L (35-105); Anion Gap 16.7 (5-19); Aspartate Amino Transferase 23 U/L (0-32); Blood Urea Nitrogen 16 mg/dL (6-20); Calcium 10.4 mg/dL (8.5-10.5); Carbon Dioxide 26 mmol/L (22-29); Chloride 101 mmol/L (98-107); Globulin 3.9 g/dL (1.3-4.6); Glomerular Filtration Rate 68.7 mL/min (90-130); Glucose 134 mg/dL (65-115); Osmolality Calculated 288 mOsm/kg (285-295); Potassium 3.7 mmol/L (3.5-5.1); Sodium 140 mmol/L (136-145); Total Bilirubin 0.6 mg/dL (0.15-1.2); Total Protein 8.8 g/dL (6.6-8.7)
[2020-04-04] MEDS: promethazine 25 mg Tablet PO (14:28)
[2020-04-04] MEDS: acetaminophen 500 mg Tablet 1000 MG PO (14:28)
[2020-04-04 14:36] LABS: Add Urine Microscopic? YES; Bilirubin Urine Neg (NEGATIVE); Blood Urine Trace (Negative); Glucose Urine UA Norm (Normal); Ketones Urine Negative (Negative); Leukocyte Esterase Urine Negative (Negative); Nitrate Urine Negative (Negative); Protein Urine 2+ (Negative); Urine Appearance Clear (CLEAR); Urine Color Yellow (Yellow); Urobilinogen Urine Norm (Negative); pH Urine 5 (5-7)
[2020-04-04 14:38] LABS: RBC Urine 0-4 /hpf (0-2); Squamous Epithelial Cell Urine 0-4 (0-5); WBC Urine 0-4 /hpf (0-5)
[2020-04-04 14:39] LABS: Add Urine Culture? No; Bacteria Urine 1+; Mucus Urine 1+
[2020-04-04 15:01] VITALS: BP 167/100; PULSE 98; RESP 17; O2SAT 100
== END 2020-04-04 14:55 | disposition home or self-care (01) ==
PROVIDERS: Emergency Provider Family Medicine
DX: E10.43 Type 1 diabetes mellitus with diabetic autonomic (poly)neuropathy (principal); K31.84 Gastroparesis; M86.162 Other acute osteomyelitis, left tibia and fibula; Z79.02 Long term (current) use of antithrombotics/antiplatelets; Z79.82 Long term (current) use of aspirin; Z79.4 Long term (current) use of insulin; E10.22 Type 1 diabetes mellitus with diabetic chronic kidney disease; N18.2 Chronic kidney disease, stage 2 (mild); I25.10 Atherosclerotic heart disease of native coronary artery without angina pectoris; E78.5 Hyperlipidemia, unspecified; Z89.512 Acquired absence of left leg below knee; Z87.891 Personal history of nicotine dependence
CPT/HCPCS: 12345; 73590; 80053; 81001; 85025; 99283; Q0169

== ENCOUNTER 2020-04-09 03:03 | Emergency (ER) | payer SELFPAY ==
[2020-04-09] VITALS (9 sets, daily range): BP systolic 129–176; BP diastolic 73–107; PULSE 97–126; RESP 15–22; TEMP 36.3; O2SAT 97–100; BMI 22.1
[2020-04-09 04:13] LABS: Basophils % 0.3 %; Eosinophils % 0.2 %; Hematocrit 38.1 % (37.0-47.0); Hemoglobin 12.4 g/dL (11.5-15.3); Lymphocytes # 1.2 10^3/uL (0.8-4.8); Lymphocytes % 9.4 %; Mean Corpuscular HGB Conc 32.5 g/dL (30.0-36.0); Mean Corpuscular Hemoglobin 28.1 pg (28.0-34.0); Mean Corpuscular Volume 86.4 fL (81-99); Mean Platelet Volume 8.6 fL (7.4-10.4); Monocytes # 0.5 10^3/uL (0.2-0.9); Monocytes % 4.1 %; Neutrophils # 10.56 10^3/uL (1.8-7.7); Neutrophils % 85.6 %; Nucleated Red Blood Cells % 0 %; Platelet Count 420 10^3/cmm (130-400); Red Blood Count 4.41 10^6/uL (4.1-5.3); Red Cell Distribution Width 13.9 % (12.1-15.1); White Blood Count 12.3 10^3/uL (4.0-10.0)
[2020-04-09] MEDS: haloperidol inj 5 mg/mL INJ 1 mL 3 MG IVP (04:16)
[2020-04-09] MEDS: fentaNYL 50 mcg/mL INJ 2mL 100 MCG IVP (04:18)
[2020-04-09] MEDS: sodium chloride 0.9% 1,000 ML 999 ML IV ×2 (04:21→06:07)
[2020-04-09 04:29] LABS: HCG, Serum Qual Negative (Negative)
[2020-04-09 04:31] LABS: Alanine Aminotransferase 16 U/L (0-33); Albumin Level 4.8 g/dL (3.5-5.2); Alkaline Phosphatase 140 IU/L (35-105); Anion Gap 19.5 (5-19); Aspartate Amino Transferase 15 U/L (0-32); Blood Urea Nitrogen 38 mg/dL (6-20); C Reactive Protein 10.6 mg/L (0.0-4.9); Calcium 9.8 mg/dL (8.5-10.5); Carbon Dioxide 25 mmol/L (22-29); Chloride 98 mmol/L (98-107); Glomerular Filtration Rate 35.3 mL/min (90-130); Glucose 243 mg/dL (65-115); Lipase 32 U/L (13-60); Osmolality Calculated 294 mOsm/kg (285-295); Potassium 3.5 mmol/L (3.5-5.1); Sodium 139 mmol/L (136-145); Total Bilirubin 0.7 mg/dL (0.15-1.2); Total Protein 8.8 g/dL (6.6-8.7)
--- NOTE | 2020-04-09 05:52 | XR_ITS ---
WS: [id number] EXAM: ABDOMINAL KUB DATE OF EXAMINATION: 04/09/2020, 0611 hours COMPARISON: Abdominal KUB from 4 days prior. HISTORY: Patient is 40 years old with generalized abdominal pain. Prior cholecystectomy. FINDINGS: The bowel gas pattern remains normal. No calcifications are seen to suggest definite renal or uretera l calculi. Surgical clips in the right upper quadrant correlate with reported cholecystectomy. Additi onal surgical clip at the GE junction and in the right lateral abdomen. Presumably free clips associa marcela with the prior cholecystectomy. Solid organ silhouettes do not appear enlarged. Mild changes of a rthritis are seen in the spine. XR/XR KUB portable [id number] IMPRESSION: Normal bowel gas pattern. No calcifications to suggest renal or ureteral calcul i. If there is concern for an acute intra-abdominal process CT would be the bibi ging modality of choice for further evaluation.
[2020-04-09 06:18] LABS: Add Urine Microscopic? YES; Bilirubin Urine Neg (NEGATIVE); Blood Urine 2+ (Negative); Glucose Urine UA 2+ (Normal); Ketones Urine Negative (Negative); Leukocyte Esterase Urine Negative (Negative); Nitrate Urine Negative (Negative); Protein Urine 3+ (Negative); Specific Gravity, Urine 1.025 (1.005-1.030); Urine Color Yellow (Yellow); Urobilinogen Urine Norm (Negative); pH Urine 5 (5-7)
[2020-04-09 06:24] LABS: RBC Urine 0-4 /hpf (0-2); WBC Urine 0-4 /hpf (0-5)
[2020-04-09 06:26] LABS: Bacteria Urine 3+; Squamous Epithelial Cell Urine 25-40 (0-5)
[2020-04-09 06:27] LABS: Add Urine Culture? No
--- NOTE | 2020-04-09 06:45 | W.ED.ABDPA2 ---
HPI - Abdominal Pain General: Chief Complaint: Abdominal Pain Stated Complaint: abd pain Time Seen by Provider: 04/09/20 03:42 History of Present Illness: HPI narrative: 40-year-old female well-known to the emergency department presents with belly pain and vomiting. She states that she has been sick for about 3 days. She is vomited multiple times. She is not holding down fluids at this point. No fever, she had a couple of loose stools a couple of days ago but none since. She has chronic belly pain. By last count, she has had 8 CT scans at this facility in the last 2 to 3 months. MD elicited complaint: abdominal pain Pertinent past history: other Onset (ago): day(s) Pain Consistency: constant Location: Periumbilical Severity: severe Quality: cramping and stabbing Radiation: none Exacerbating factors: vomiting and movement Relieving factors: nothing Associated Symptoms: Reports bloating, nausea and vomiting; Denies coffee ground emesis, constipation, dysuria, fever(s), hematuria and hematemesis Related Data: Date of Last Menstrual Period: 07/24/18 Review of Systems Const: Denies: fever(s) Eyes: Denies: change in vision or blurry vision ENMT: Denies: swelling of lips/tongue, change in hearing or sinus pain Card: Denies: chest pain, palpitations or irregular heart rhythm Resp: Denies: dyspnea, productive cough, non-productive cough or wheezing GI: Reports: nausea, vomiting and bloating; Denies: hematemesis, coffee ground emesis or constipation : Denies: dysuria or hematuria Musc: Denies: neck pain or back pain Skin/Breast: Denies: rash, pruritus or erythema Neuro: Denies: headache(s), dizziness or vertigo Psych: Denies: anxiety [facility] PFSH: Medical History (Updated 04/09/20 @ 07:06 by Pablito Perry DO) CKD (chronic kidney disease) stage 2, GFR 60-89 ml/min -secondary to diabetic nephropathy -baseline Cr is around 1.0 Coronary artery disease -hx of CAD s/p stenting Diabetes mellitus type 1 Diabetic gastroparesis -secondary to DM type I Foot osteomyelitis, right Hyperlipidemia Type 1 diabetes mellitus -noted hx of DM type I complicated by nephropathy and neuropathy -A1c-7.5 (12/2019) -Accu-Cheks, scheduled and ISS, hypoglycemia precautions Surgical History Below-knee amputation of left lower extremity H/O exploratory laparotomy x 3 History of amputation of right forefoot Hx of cholecystectomy Previous section x 3 S/P coronary artery stent placement x 1 S/P percutaneous endoscopic gastrostomy (PEG) tube placement Family History Unknown Diabetes extensive, type II Other CHF (congestive heart failure) Social History Smoking and tobacco status: former smoker Quit status (tobacco): has quit using tobacco Former quit date comment: 15 yrs ago Alcohol intake: former Former alcohol use details: 15 yrs ago Household members: spouse Marital status: Sexually active: Yes (1, ) Female Reproductive History: Date of last menstrual period: 07/24/18 : 11 Physical Exam Const: GENERAL APPEARANCE: ill appearing ORIENTATION/CONSCIOUSNESS: Yes oriented to person, Yes oriented to place and Yes oriented to time HENMT: COMMON NORMALS: normocephalic, external ears normal and Normal external nose present HEAD & SCALP: normocephalic FACE & SINUS: normal facial exam NOSE: Normal external nose present and No nasal discharge present EXTERNAL EAR: Yes external ears normal Eye: COMMON NORMALS: Equal, round and reactive pupils present, EOMs intact bilaterally and conjunctivae normal EYELID: eyelids normal CONJUNCTIVA: Yes conjunctivae normal PUPIL: Yes Equal, round and reactive pupils present Neck/C-Spine: GENERAL: No tracheal deviation Chest: COMMONS NORMALS: normal inspection of the chest CHEST: No tenderness Resp: COMMON NORMALS: clear to auscultation bilaterally EFFORT & INSPECTION: No tachypneic, No respiratory distress, No retractions, No uses accessory muscles and No tracheal deviation AUSCULTATION: clear to auscultation bilaterally, no rhonchi, no wheezes and lung sounds not diminished Cardio: COMMON NORMALS: regular rate and regular rhythm RATE: regular rate RHYTHM: regular rhythm HEART SOUNDS: no murmurs PERIPHERAL PULSES: radial pulses present GI: INSPECTION: No abdominal distension AUSCULTATION: No Hyperactive bowel sounds present and No Hypoactive bowel sounds present PALPATION: Yes Tenderness to palpation present (GI) (diffuse), Yes Guarding due to palpation present (GI) and No Rigid due to palpation PERCUSSION: no dullness to percussion and no tympanic to percussion Neuro: SENSORIUM/ORIENTATION: Yes oriented to person, Yes oriented to place and Yes oriented to time Psych: COMMON NORMALS: mental status grossly normal Skin: COMMON NORMALS: no rashes or lesions noted GENERAL SKIN EXAM: no rashes or lesions noted Course Vital Signs: Vital signs: Vital Signs Temperature 97.4 F L 04/09/20 03:07 Pulse Rate 105 H 04/09/20 06:42 Respiratory Rate 15 04/09/20 06:42 Blood Pressure 144/89 04/09/20 06:07 Pulse Oximetry 98 04/09/20 06:42 MDM - Abdominal Pain MDM Narrative: Medical decision making narrative: 40-year-old female, frequent patient in the ER for abdominal pain. She has not vomited since she is received fentanyl and Haldol here. Her blood pressure is 129/73. Saturations 98% on room air. Her white blood cell count is 12. Her BUN and creatinine are elevated above her baseline. She has had 2 L of fluid for this. KUB does not reveal an obstruction. No free air. She is afebrile. Will allow her home for treatment. She knows to return for worsening symptoms. Lab Data: Labs: Lab Results 04/09/20 04/09/20 04/09/20 Range/Units 03:35 03:35 03:35 WBC 12.3 H (4.0-10.0) 10^3/ uL RBC 4.41 (4.1-5.3) 10^6/u L Hgb 12.4 (11.5-15.3) g/dL Hct 38.1 (37.0-47.0) % MCV 86.4 (81-99) fL MCH 28.1 (28.0-34.0) pg MCHC 32.5 (30.0-36.0) g/dL RDW 13.9 (12.1-15.1) % Plt Count 420 H (130-400) 10^3/c mm MPV 8.6 (7.4-10.4) fL Neut % (Auto) 85.6 % Lymph % (Auto) 9.4 % Hickman % (Auto) 4.1 % Eos % (Auto) 0.2 % Baso % (Auto) 0.3 % Neut # (Auto) 10.56 H (1.8-7.7) 10^3/u L Lymph # (Auto) 1.2 (0.8-4.8) 10^3/u L Hickman # (Auto) 0.5 (0.2-0.9) 10^3/u L Eos # (Auto) 0.0 (0.0-0.8) 10^3/u L Baso # (Auto) 0.0 (0.0-0.1) 10^3/u L Nucleated RBC % (a uto) 0 % Nucleated RBCs # 0.0 /100WBC Sodium 139 (136-145) mmol/L Potassium 3.5 (3.5-5.1) mmol/L Chloride 98 (98-107) mmol/L Carbon Dioxide 25 (22-29) mmol/L Anion Gap 19.5 H (5-19) BUN 38 H (6-20) mg/dL Creatinine 1.6 H (0.5-0.9) mg/dL GFR Calculation 35.3 L (90-130) mL/min Glucose 243 H (65-115) mg/dL Calculated Osmolal ity 294 (285-295) mOsm/k g Calcium 9.8 (8.5-10.5) mg/dL Total Bilirubin 0.7 (0.15-1.2) mg/dL AST 15 (0-32) U/L ALT 16 (0-33) U/L Alkaline Phosphata se 140 H (35-105) IU/L C-Reactive Protein 10.6 H (0.0-4.9) mg/L Total Protein 8.8 H (6.6-8.7) g/dL Albumin 4.8 (3.5-5.2) g/dL Globulin 4.0 (1.3-4.6) g/dL Lipase 32 (13-60) U/L HCG, Qual Negative (Negative) Urine Color (Yellow) Urine Appearance (CLEAR) Urine pH (5-7) Ur Specific Gravit y (1.005-1.030) Urine Protein (Negative) Urine Glucose (UA) (Normal) Urine Ketones (Negative) Urine Blood (Negative) Urine Nitrate (Negative) Urine Bilirubin (NEGATIVE) Urine Urobilinogen (Negative) mg/dL Ur Leukocyte Estephania ase (Negative) Urine RBC (0-2) /hpf Urine WBC (0-5) /hpf Ur Squamous Epith Cells (0-5) Amorphous Sediment Urine Bacteria (NONE) Urine Yeast 04/09/20 Range/Units 05:48 WBC (4.0-10.0) 10^3/ uL RBC (4.1-5.3) 10^6/u L Hgb (11.5-15.3) g/dL Hct (37.0-47.0) % MCV (81-99) fL MCH (28.0-34.0) pg MCHC (30.0-36.0) g/dL RDW (12.1-15.1) % Plt Count (130-400) 10^3/c mm MPV (7.4-10.4) fL Neut % (Auto) % Lymph % (Auto) % Hickman % (Auto) % Eos % (Auto) % Baso % (Auto) % Neut # (Auto) (1.8-7.7) 10^3/u L Lymph # (Auto) (0.8-4.8) 10^3/u L Hickman # (Auto) (0.2-0.9) 10^3/u L Eos # (Auto) (0.0-0.8) 10^3/u L Baso # (Auto) (0.0-0.1) 10^3/u L Nucleated RBC % (a uto) % Nucleated RBCs # /100WBC Sodium (136-145) mmol/L Potassium (3.5-5.1) mmol/L Chloride (98-107) mmol/L Carbon Dioxide (22-29) mmol/L Anion Gap (5-19) BUN (6-20) mg/dL Creatinine (0.5-0.9) mg/dL GFR Calculation (90-130) mL/min Glucose (65-115) mg/dL Calculated Osmolal ity (285-295) mOsm/k g Calcium (8.5-10.5) mg/dL Total Bilirubin (0.15-1.2) mg/dL AST (0-32) U/L ALT (0-33) U/L Alkaline Phosphata se (35-105) IU/L C-Reactive Protein (0.0-4.9) mg/L Total Protein (6.6-8.7) g/dL Albumin (3.5-5.2) g/dL Globulin (1.3-4.6) g/dL Lipase (13-60) U/L HCG, Qual (Negative) Urine Color Yellow (Yellow) Urine Appearance Sl cloudy A (CLEAR) Urine pH 5 (5-7) Ur Specific Gravit y 1.025 (1.005-1.030) Urine Protein 3+ H (Negative) Urine Glucose (UA) 2+ (Normal) Urine Ketones Negative (Negative) Urine Blood 2+ H (Negative) Urine Nitrate Negative (Negative) Urine Bilirubin Neg (NEGATIVE) Urine Urobilinogen Norm (Negative) mg/dL Ur Leukocyte Estephania ase Negative (Negative) Urine RBC 0-4 H (0-2) /hpf Urine WBC 0-4 H (0-5) /hpf Ur Squamous Epith Cells 25-40 H (0-5) Amorphous Sediment Not Reportable Urine Bacteria 3+ H (NONE) Urine Yeast 3+ H Discharge Plan Discharge Patient Disposition: Home Clinical Impression: Abdominal pain Qualifiers: Abdominal location: generalized Qualified Code(s): R10.84 - Generalized abdominal pain Intractable vomiting Qualifiers: Vomiting type: unspecified Nausea presence: with nausea Qualified Code(s): R11.2 - Nausea with vomiting, unspecified Condition: Stable Prescriptions: New chlorpromazine 25 mg tablet 25 mg PO TID PRN (Reason: nausea and vomiting) Qty: 10 RF: 0 No Action gabapentin 300 mg Capsule 300 mg PO QID RF: 0 ferrous sulfate 325 mg (65 mg iron) Tablet,Delayed Release (Dr/Ec) 325 mg PO BIDWM Qty: 60 RF: 0 sucralfate [Carafate] 1 gram Tablet 1 g PO TID RF: 0 buspirone 10 mg Tablet 10 mg PO BID RF: 0 dicyclomine 10 mg capsule 10 mg PO QID Qty: 20 RF: 0 ondansetron 4 mg tablet,disintegrating 4 mg PO Q6H PRN (Reason: nausea and vomiting) Qty: 10 RF: 0 metoclopramide HCl 10 mg tablet 10 mg PO QID RF: 0 lorazepam [Ativan] 1 mg tablet 1 mg PO Q6H PRN (Reason: nausea and vomiting) Qty: 14 RF: 0 Levaquin 750 mg tablet 750 mg PO DAILY RF: 0 clopidogrel [Plavix] 75 mg Tablet 75 mg PO DAILY RF: 0 aspirin [Aspir-81] 81 mg Tablet,Delayed Release (Dr/Ec) 81 mg PO DAILY RF: 0 carvedilol 3.125 mg tablet 3.125 mg PO Q12H RF: 0 insulin lispro [Humalog U-100 Insulin] 100 unit/mL Solution See Rx Instructions .ROUTE .COMPLEX RF: 0 Lantus Solostar U-100 Insulin 100 unit/mL (3 mL) Insulin Pen 5 unit SUBCUT BEDTIME RF: 0 pantoprazole 40 mg tablet,delayed release (DR/EC) 40 mg PO DAILY Qty: 30 RF: 0 Discharge Orders: Discharge Order (Routine); Ordered 04/09/20 Ordered By: Pablito Perry Discharge Diet: Advance as tolerated and Clear Liquid Discharge Activity: Increase activity as tolerated Patient Instructions: Abdominal Pain (ED) Activity Restrictions/Additional Instructions: Return for fever greater than 100, worsening pain or vomiting despite treatment, other concerning symptoms. Be sure to use frequent sips of fluid for rehydration. Take the medication you were prescribed scheduled for the first 48 hours, then as needed. See your doctor in 2 days time for follow-up. 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 Code ED Utility Hand for Kim Fwmaddie Exam Comprehensive
== END 2020-04-09 07:22 | disposition home or self-care (01) ==
PROVIDERS: Emergency Provider Emergency Medicine
DX: R10.84 Generalized abdominal pain (principal); R11.2 Nausea with vomiting, unspecified; Z79.02 Long term (current) use of antithrombotics/antiplatelets; Z79.82 Long term (current) use of aspirin; Z79.4 Long term (current) use of insulin; E10.22 Type 1 diabetes mellitus with diabetic chronic kidney disease; N18.2 Chronic kidney disease, stage 2 (mild); I25.10 Atherosclerotic heart disease of native coronary artery without angina pectoris; E78.5 Hyperlipidemia, unspecified; Z89.512 Acquired absence of left leg below knee; Z87.891 Personal history of nicotine dependence
CPT/HCPCS: 12345; 51701; 74018; 80053; 81001; 83690; 84703; 85025; 86140; 96360; 96361; 96374; 96375; 99284; J1630; J3010; J7030

== ENCOUNTER 2020-04-10 18:26 | Emergency (ER) | payer SELFPAY ==
--- NOTE | 2020-04-10 18:38 | ED_ITS ---
HPI - Abdominal Pain General: Chief Complaint: Abdominal Pain Stated Complaint: ABD PAIN Time Seen by Provider: 04/10/20 18:31 Source: patient and EMS Mode of arrival: EMS Limitations: no limitations History of Present Illness: HPI narrative: 40-year-old female who has chronic abdominal pain with vomiting as well. Patient has been seen at different ERs over the last 3 nights. She states she is continued to have vomiting along with some pain. Denies any worsening or improving factors. Denies any dysuria. She had no diarrhea. MD elicited complaint: abdominal pain Associated Symptoms: Reports nausea and vomiting; Denies chills, dysuria and fever(s) Related Data: Date of Last Menstrual Period: 07/24/18 Review of Systems Const: Denies: fever(s), chills, body aches or change in appetite Eyes: Denies: blurry vision or eye discomfort ENMT: Denies: throat pain or dental pain Card: Denies: chest pain Resp: Denies: dyspnea GI: Reports: abdominal pain, nausea and vomiting : Denies: dysuria Musc: Denies: neck pain or back pain Skin/Breast: Denies: rash Neuro: Denies: headache(s) Psych: Denies: depression Keith/Lymph: Denies: easy bruising All/Imm: Denies: urticaria PFSH ED PFSH: Medical History CKD (chronic kidney disease) stage 2, GFR 60-89 ml/min -secondary to diabetic nephropathy -baseline Cr is around 1.0 Coronary artery disease -hx of CAD s/p stenting Diabetes mellitus type 1 Diabetic gastroparesis -secondary to DM type I Foot osteomyelitis, right Hyperlipidemia Type 1 diabetes mellitus -noted hx of DM type I complicated by nephropathy and neuropathy -A1c-7.5 (12/2019) -Accu-Cheks, scheduled and ISS, hypoglycemia precautions Surgical History Below-knee amputation of left lower extremity H/O exploratory laparotomy x 3 History of amputation of right forefoot Hx of cholecystectomy Previous section x 3 S/P coronary artery stent placement x 1 S/P percutaneous endoscopic gastrostomy (PEG) tube placement Family History Unknown Diabetes extensive, type II Other CHF (congestive heart failure) Social History Smoking and tobacco status: former smoker Quit status (tobacco): has quit using tobacco Former quit date comment: 15 yrs ago Alcohol intake: former Former alcohol use details: 15 yrs ago Household members: spouse Marital status: Sexually active: Yes (1, ) Female Reproductive History: Date of last menstrual period: 07/24/18 Physical Exam Const: COMMON NORMALS: no acute distress, patient oriented x3 and healthy appearing HENMT: COMMON NORMALS: normocephalic and atraumatic HEAD & SCALP: normocephalic and atraumatic Eye: COMMON NORMALS: Equal, round and reactive pupils present and EOMs intact bilaterally PUPIL: Yes Equal, round and reactive pupils present Neck/C-Spine: COMMON NORMALS: full ROM and supple Chest: COMMONS NORMALS: normal inspection of the chest and normal palpation of entire chest wall Resp: COMMON NORMALS: normal respiratory effort, No retractions, No use of accessory muscles and clear to auscultation bilaterally AUSCULTATION: clear to auscultation bilaterally Cardio: COMMON NORMALS: regular rate, regular rhythm and No murmurs present (Cardio) RATE: regular rate RHYTHM: regular rhythm GI: COMMON NORMALS: Normal to inspection, nondistended, normoactive bowel sounds present, Soft to palpation, non-tender and no masses PALPATION: Yes Soft to palpation Extremity: COMMON NORMALS: normal to inspection and full ROM Neuro: COMMON NORMALS: patient oriented x3, moves all extremities and no focal motor deficits Psych: COMMON NORMALS: mental status grossly normal, Normal thought process present and cooperative THOUGHT PROCESS: Normal thought process present Skin: COMMON NORMALS: no rashes or lesions noted and no wounds GENERAL SKIN EXAM: no rashes or lesions noted Course Vital Signs: Vital signs: Vital Signs Temperature 98.9 F 04/10/20 19:02 Pulse Rate 109 H 04/10/20 18:50 Respiratory Rate 17 04/10/20 21:37 Blood Pressure 125/79 04/10/20 18:50 Pulse Oximetry 98 04/10/20 21:37 MDM - Abdominal Pain MDM Narrative: Medical decision making narrative: Patient presents here with abdominal pain that is chronic in nature. She also has cyclical vomiting. Her vomiting is improved here. Her lab work and CT abdomen here are normal. She is stable for discharge and is to return if worsening. Lab Data: Labs: Lab Results 04/10/20 04/10/20 04/10/20 Range/Units 18:42 18:42 20:19 WBC 8.4 (4.0-10.0) 10^3/ uL RBC 4.12 (4.1-5.3) 10^6/u L Hgb 11.6 (11.5-15.3) g/dL Hct 35.9 L (37.0-47.0) % MCV 87.1 (81-99) fL MCH 28.2 (28.0-34.0) pg MCHC 32.3 (30.0-36.0) g/dL RDW 13.5 (12.1-15.1) % Plt Count 375 (130-400) 10^3/c mm MPV 8.3 (7.4-10.4) fL Neut % (Auto) 70.6 % Lymph % (Auto) 18.0 % Dukes % (Auto) 10.3 % Eos % (Auto) 0.2 % Baso % (Auto) 0.5 % Neut # (Auto) 5.92 (1.8-7.7) 10^3/u L Lymph # (Auto) 1.5 (0.8-4.8) 10^3/u L Dukes # (Auto) 0.9 (0.2-0.9) 10^3/u L Eos # (Auto) 0.0 (0.0-0.8) 10^3/u L Baso # (Auto) 0.0 (0.0-0.1) 10^3/u L Nucleated RBC % (a uto) 0 % Nucleated RBCs # 0.0 /100WBC Sodium 136 (136-145) mmol/L Potassium 3.2 L (3.5-5.1) mmol/L Chloride 96 L (98-107) mmol/L Carbon Dioxide 25 (22-29) mmol/L Anion Gap 18.2 (5-19) BUN 31 H (6-20) mg/dL Creatinine 1.1 H (0.5-0.9) mg/dL GFR Calculation 54.5 L (90-130) mL/min Glucose 108 (65-115) mg/dL Calculated Osmolal ity 280 L (285-295) mOsm/k g Calcium 9.4 (8.5-10.5) mg/dL Total Bilirubin 0.6 (0.15-1.2) mg/dL AST 16 (0-32) U/L ALT 13 (0-33) U/L Alkaline Phosphata se 122 H (35-105) IU/L Total Protein 8.3 (6.6-8.7) g/dL Albumin 4.5 (3.5-5.2) g/dL Globulin 3.8 (1.3-4.6) g/dL Lipase 19 (13-60) U/L Urine Color Yellow (Yellow) Urine Appearance Sl cloudy A (CLEAR) Urine pH 5 (5-7) Ur Specific Gravit y 1.025 (1.005-1.030) Urine Protein 2+ H (Negative) Urine Glucose (UA) Norm (Normal) Urine Ketones 1+ H (Negative) Urine Blood Trace H (Negative) Urine Nitrate Negative (Negative) Urine Bilirubin 1+ H (NEGATIVE) Urine Urobilinogen 1 H (Negative) mg/dL Ur Leukocyte Estephania ase Negative (Negative) Amorphous Sediment Not Reportable Imaging Data ^: CT Abd/Pel: Radiologist's impression: [place] [address] CT Scan Report Signed Patient: Cherrie Solomon Unit #: [id number] : 1980 Age/Sex: 40 / F ADM Date: 04/10/20 Loc: ER Room/Bed: Attending Dr: Ordering Provider/Ordering MD: Donavon Delaney MD Date of Service: 04/10/20 Procedure(s): CT abdomen pelvis con [id number] Accession Number(s): [id number] Report Number: [id number] PROCEDURE INFORMATION: Exam: CT Abdomen And Pelvis Without Contrast Exam date and time: 04/10/2020 9:19 PM Age: 40 years old Clinical indication: Abdominal pain; Generalized; Prior surgery; Surgery date: 6+ months; Surgery type: Gb, c-sect, peg tube; Patient HX: C/O abd pain w n/v TECHNIQUE: Imaging protocol: Computed tomography of the abdomen and pelvis without contrast. Radiation optimization: All CT scans at this facility use at least one of these dose optimization techniques: automated exposure control; mA and/or kV adjustment per patient size (includes targeted exams where dose is matched to clinical indication); or iterative reconstruction. COMPARISON: CT kidney stone [id number] 03/13/2020 6:23 AM RADIATION DOSE METRICS: Total DLP (mGy-cm): 500.36 FINDINGS: Liver: Normal. No mass. Gallbladder and bile ducts: Stable cholecystectomy. Pancreas: Normal. No ductal dilation. Spleen: Normal. No splenomegaly. Adrenals: Normal. No mass. Kidneys and ureters: Normal. No hydronephrosis. Stomach and bowel: Unremarkable. No obstruction. No mucosal thickening. Appendix: No evidence of appendicitis. Intraperitoneal space: Unremarkable. No free air. No significant fluid collection. Vasculature: Calcification of the abdominal aorta and/or iliac arteries consistent with atherosclerotic vessel disease. One or more calcified pelvic phleboliths. Lymph nodes: Unremarkable. No enlarged lymph nodes. Bladder: Unremarkable as visualized. Reproductive: Unremarkable as visualized. Bones/joints: Unremarkable. No acute fracture. Soft tissues: Unremarkable. CT/CT abdomen pelvis wo con [id number] IMPRESSION: No acute findings. Discharge Plan Discharge Patient Disposition: Home Clinical Impression: Abdominal pain Qualifiers: Abdominal location: generalized Qualified Code(s): R10.84 - Generalized abdomi nal pain Vomiting Qualifiers: Vomiting type: unspecified Vomiting Intractability: non-intractable Nausea presence: with nausea Qualified Code(s): R11.2 - Nausea with vomiting, unspecified Condition: Stable Prescriptions: No Action gabapentin 300 mg Capsule 300 mg PO QID RF: 0 ferrous sulfate 325 mg (65 mg iron) Tablet,Delayed Release (Dr/Ec) 325 mg PO BIDWM Qty: 60 RF: 0 sucralfate [Carafate] 1 gram Tablet 1 g PO TID RF: 0 buspirone 10 mg Tablet 10 mg PO BID RF: 0 dicyclomine 10 mg capsule 10 mg PO QID Qty: 20 RF: 0 ondansetron 4 mg tablet,disintegrating 4 mg PO Q6H PRN (Reason: nausea and vomiting) Qty: 10 RF: 0 metoclopramide HCl 10 mg tablet 10 mg PO QID RF: 0 lorazepam [Ativan] 1 mg tablet 1 mg PO Q6H PRN (Reason: nausea and vomiting) Qty: 14 RF: 0 Levaquin 750 mg tablet 750 mg PO DAILY RF: 0 clopidogrel [Plavix] 75 mg Tablet 75 mg PO DAILY RF: 0 aspirin [Aspir-81] 81 mg Tablet,Delayed Release (Dr/Ec) 81 mg PO DAILY RF: 0 carvedilol 3.125 mg tablet 3.125 mg PO Q12H RF: 0 insulin lispro [Humalog U-100 Insulin] 100 unit/mL Solution See Rx Instructions .ROUTE .COMPLEX RF: 0 Lantus Solostar U-100 Insulin 100 unit/mL (3 mL) Insulin Pen 5 unit SUBCUT BEDTIME RF: 0 pantoprazole 40 mg tablet,delayed release (DR/EC) 40 mg PO DAILY Qty: 30 RF: 0 chlorpromazine 25 mg tablet 25 mg PO TID PRN (Reason: nausea and vomiting) Qty: 10 RF: 0 Discharge Orders: Discharge Order (Routine); Ordered 04/10/20 Ordered By: Donavon Delaney Discharge Diet: Advance as tolerated Discharge Activity: Resume usual activity Patient Instructions: Abdominal Pain (ED) 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 Code ED New Car Inspector for Chg Fwd Exam Comprehensive
[2020-04-10 18:49] LABS: Basophils % 0.5 %; Eosinophils % 0.2 %; Hematocrit 35.9 % (37.0-47.0); Hemoglobin 11.6 g/dL (11.5-15.3); Lymphocytes # 1.5 10^3/uL (0.8-4.8); Mean Corpuscular HGB Conc 32.3 g/dL (30.0-36.0); Mean Corpuscular Hemoglobin 28.2 pg (28.0-34.0); Mean Corpuscular Volume 87.1 fL (81-99); Mean Platelet Volume 8.3 fL (7.4-10.4); Monocytes # 0.9 10^3/uL (0.2-0.9); Monocytes % 10.3 %; Neutrophils # 5.92 10^3/uL (1.8-7.7); Neutrophils % 70.6 %; Nucleated Red Blood Cells % 0 %; Platelet Count 375 10^3/cmm (130-400); Red Blood Count 4.12 10^6/uL (4.1-5.3); Red Cell Distribution Width 13.5 % (12.1-15.1); White Blood Count 8.4 10^3/uL (4.0-10.0)
[2020-04-10 18:50] VITALS: BP 125/79; PULSE 109; RESP 18; O2SAT 97; BMI 22.1
[2020-04-10 19:02] VITALS: TEMP 37.2
[2020-04-10 19:08] LABS: Alanine Aminotransferase 13 U/L (0-33); Albumin Level 4.5 g/dL (3.5-5.2); Alkaline Phosphatase 122 IU/L (35-105); Anion Gap 18.2 (5-19); Aspartate Amino Transferase 16 U/L (0-32); Blood Urea Nitrogen 31 mg/dL (6-20); Calcium 9.4 mg/dL (8.5-10.5); Carbon Dioxide 25 mmol/L (22-29); Chloride 96 mmol/L (98-107); Globulin 3.8 g/dL (1.3-4.6); Glomerular Filtration Rate 54.5 mL/min (90-130); Glucose 108 mg/dL (65-115); Lipase 19 U/L (13-60); Osmolality Calculated 280 mOsm/kg (285-295); Potassium 3.2 mmol/L (3.5-5.1); Sodium 136 mmol/L (136-145); Total Bilirubin 0.6 mg/dL (0.15-1.2); Total Protein 8.3 g/dL (6.6-8.7)
[2020-04-10] MEDS: diphenhydrAMINE 50 mg/mL SDV 1mL IVP ×2 (19:22→22:38)
[2020-04-10] MEDS: metoclopramide 5 mg/mL SDV 2 mL 10 MG IVP (19:26)
--- NOTE | 2020-04-10 21:01 | CTR_ITS ---
PROCEDURE INFORMATION: Exam: CT Abdomen And Pelvis Without Contrast Exam date and time: 04/10/2020 9:19 PM Age: 40 years old Clinical indication: Abdominal pain; Generalized; Prior surgery; Surgery date: 6+ months; Surgery type: Gb, c-sect, peg tube; Patient HX: C/O abd pain w n/v TECHNIQUE: Imaging protocol: Computed tomography of the abdomen and pelvis without contrast. Radiation optimization: All CT scans at this facility use at least one of these dose optimization techniques: automated exposure control; mA and/or kV adjustment per patient size (includes targeted exams where dose is matched to clinical indication); or iterative reconstruction. COMPARISON: CT kidney stone [id number] 03/13/2020 6:23 AM RADIATION DOSE METRICS: Total DLP (mGy-cm): 500.36 FINDINGS: Liver: Normal. No mass. Gallbladder and bile ducts: Stable cholecystectomy. Pancreas: Normal. No ductal dilation. Spleen: Normal. No splenomegaly. Adrenals: Normal. No mass. Kidneys and ureters: Normal. No hydronephrosis. Stomach and bowel: Unremarkable. No obstruction. No mucosal thickening. Appendix: No evidence of appendicitis. Intraperitoneal space: Unremarkable. No free air. No significant fluid collection. Vasculature: Calcification of the abdominal aorta and/or iliac arteries consistent with atherosclerotic vessel disease. One or more calcified pelvic phleboliths. Lymph nodes: Unremarkable. No enlarged lymph nodes. Bladder: Unremarkable as visualized. Reproductive: Unremarkable as visualized. Bones/joints: Unremarkable. No acute fracture. Soft tissues: Unremarkable. CT/CT abdomen pelvis wo con [id number] IMPRESSION: No acute findings. Radiation Dose CTDIVOL = (mGy): DLP = 500.36 (mGy-cm)
[2020-04-10 21:37] VITALS: RESP 17; O2SAT 98
[2020-04-10] MEDS: HYDROmorphone 1 mg/mL INJ 1 mL IVP (21:37)
[2020-04-10 22:03] LABS: Specific Gravity, Urine 1.025 (1.005-1.030); Urine Color Yellow (Yellow); pH Urine 5 (5-7)
[2020-04-10 22:04] LABS: Add Urine Microscopic? YES; Bilirubin Urine 1+ (NEGATIVE); Blood Urine Trace (Negative); Glucose Urine UA Norm (Normal); Ketones Urine 1+ (Negative); Leukocyte Esterase Urine Negative (Negative); Nitrate Urine Negative (Negative); Protein Urine 2+ (Negative); Urobilinogen Urine 1 mg/dL (Negative)
[2020-04-10 22:09] LABS: RBC Urine 0-4 /hpf (0-2); WBC Urine 25-40 /hpf (0-5)
[2020-04-10 22:10] LABS: Add Urine Culture? No; Bacteria Urine 4+; Mucus Urine 1+; Squamous Epithelial Cell Urine TOO NUMEROUS TO CNT (0-5)
[2020-04-10 22:35] VITALS: BP 130/93; PULSE 118; RESP 16; O2SAT 98
--- NOTE | 2020-04-10 22:37 | PC.NURSE ---
pain down to a --[id number]
== END 2020-04-10 22:40 | disposition home or self-care (01) ==
PROVIDERS: Emergency Provider Emergency Medicine
DX: R10.84 Generalized abdominal pain (principal); R11.2 Nausea with vomiting, unspecified; Z79.02 Long term (current) use of antithrombotics/antiplatelets; Z79.82 Long term (current) use of aspirin; Z79.4 Long term (current) use of insulin
CPT/HCPCS: 12345; 36415; 74176; 80053; 81001; 83690; 85025; 96374; 96375; 96376; 99282; 99283; J1170; J1200; J2765

== ENCOUNTER 2020-11-28 13:36 | Inpatient (IN) | payer MEDICAID, SELFPAY ==
[2020-11-28] VITALS (25 sets, daily range): BP systolic 177–210; BP diastolic 88–123; PULSE 104–130; RESP 14–32; TEMP 36.7–36.8; O2SAT 96–100; BMI 35.9
--- NOTE | 2020-11-28 13:55 | XRR_ITS ---
PROCEDURE INFORMATION: Exam: XR Chest Exam date and time: 11/28/2020 2:20 PM Age: 40 years old Clinical indication: Other: N/v, abd pain; Other: Abdominal pain; Patient HX: PT uncooperative; Additional info: Vomiting TECHNIQUE: Imaging protocol: XR of the chest. Views: 1 view. COMPARISON: CR XR chest 1V portable [id number] 03/11/2020 4:02 PM FINDINGS: Lungs: Unremarkable. No consolidation. Pleural spaces: Unremarkable. No pleural effusion. No pneumothorax. Heart/Mediastinum: Unremarkable. No cardiomegaly. Bones/joints: Unremarkable. XR/XR chest 1V portable [id number] IMPRESSION: No acute findings.
--- NOTE | 2020-11-28 13:55 | CTR_ITS ---
PROCEDURE INFORMATION: Exam: CT Abdomen And Pelvis Without Contrast Exam date and time: 11/28/2020 1:58 PM Age: 40 years old Clinical indication: Abdominal pain; Flank; Right; Prior surgery; Surgery type: Peg tube, gb, exploratory; Additional info: Right flank pain TECHNIQUE: Imaging protocol: Computed tomography of the abdomen and pelvis without contrast. Axial, coronal and sagittal reformatted images were created and reviewed. Radiation optimization: All CT scans at this facility use at least one of these dose optimization techniques: automated exposure control; mA and/or kV adjustment per patient size (includes targeted exams where dose is matched to clinical indication); or iterative reconstruction. COMPARISON: CT kidney stone [id number] 03/13/2020 6:23 AM RADIATION DOSE METRICS: Total DLP (mGy-cm): 1847.63 FINDINGS: Mediastinal space: Small hiatal hernia. Liver: Mild hepatomegaly. Gallbladder and bile ducts: Status post cholecystectomy. No biliary ductal dilatation. Pancreas: Unremarkable. Spleen: Unremarkable. Adrenal glands: Normal. No mass. Kidneys and ureters: No mass. No radiodense calculi. No hydronephrosis. Stomach and bowel: No bowel wall thickening. No obstruction. No pneumatosis. Appendix: Normal. Intraperitoneal space: No free fluid. No organized fluid collection. No free air. Vasculature: Mild atherosclerotic disease. No aneurysm. Lymph nodes: No pathologically enlarged lymph nodes. Urinary bladder: Unremarkable as visualized. Reproductive: Unremarkable. Bones/joints: No acute osseous abnormality. Osteopenia. Degenerative changes. Mild chronic loss of height along the T12 superior endplate. Soft tissues: Diastasis of the rectus abdominus musculature with associated fat containing umbilical hernia. Other findings: Elevated left hemidiaphragm. CT/CT kidney stone [id number] IMPRESSION: 1. Limited noncontrast examination without CT evidence of acute intra-abdominal or pelvic pathology. 2. Additional findings, as above. Radiation Dose CTDIVOL = (mGy): DLP = 1847.63 (mGy-cm)
[2020-11-28] MEDS: ketorolac 30 mg/mL INJ IVP (14:13)
[2020-11-28] MEDS: ondansetron 2 mg/ML SDV 2 mL 4 MG IVP ×2 (14:13→19:38)
[2020-11-28] MEDS: fentaNYL 50 mcg/mL INJ 2mL IVP (15:11)
[2020-11-28 15:27] LABS: Basophils # 0.1 10^3/uL (0.0-0.1); Basophils % 0.3 %; Hematocrit 42.4 % (37.0-47.0); Hemoglobin 13.9 g/dL (11.5-15.3); Lymphocytes # 0.7 10^3/uL (0.8-4.8); Lymphocytes % 4.3 %; Mean Corpuscular HGB Conc 32.8 g/dL (30.0-36.0); Mean Corpuscular Hemoglobin 27.6 pg (28.0-34.0); Mean Corpuscular Volume 84.1 fL (81-99); Monocytes # 0.2 10^3/uL (0.2-0.9); Monocytes % 1.3 %; Neutrophils # 14.49 10^3/uL (1.8-7.7); Neutrophils % 93.5 %; Nucleated Red Blood Cells % 0 %; Platelet Count 459 10^3/cmm (130-400); Red Blood Count 5.04 10^6/uL (4.1-5.3); Red Cell Distribution Width 14.6 % (12.1-15.1); White Blood Count 15.5 10^3/uL (4.0-10.0)
--- NOTE | 2020-11-28 15:32 | PC.NURSE ---
Patient resting on left side with non-labored breathing. No signs of distress
[2020-11-28 16:53] LABS: HCG, Serum Qual Negative (Negative)
[2020-11-28 17:00] LABS: HCG Qualitative Urine. Negative (Negative)
[2020-11-28 17:06] LABS: Lactate (Lactic Acid level) 3.8 mmol/L (0.5-2.2)
[2020-11-28 17:07] LABS: Alanine Aminotransferase 14 U/L (0-33); Albumin Level 3.6 g/dL (3.5-5.2); Alkaline Phosphatase 163 IU/L (35-105); Blood Urea Nitrogen 21 mg/dL (6-20); C Reactive Protein 17.7 mg/L (0.0-4.9); Calcium 8.7 mg/dL (8.5-10.5); Carbon Dioxide 16 mmol/L (22-29); Chloride 99 mmol/L (98-107); Globulin 3.8 g/dL (1.3-4.6); Glomerular Filtration Rate 60.8 mL/min (90-130); Glucose 483 mg/dL (65-115); Lipase 19 U/L (13-60); Osmolality Calculated 304 mOsm/kg (285-295); Sodium 135 mmol/L (136-145); Total Bilirubin 0.4 mg/dL (0.15-1.2); Total Protein 7.4 g/dL (6.6-8.7)
[2020-11-28 17:17] LABS: Anion Gap 23.4 (5-19); Aspartate Amino Transferase 18 U/L (0-32); Potassium 3.4 mmol/L (3.5-5.1)
[2020-11-28 18:01] LABS: Ketone (Acetest) Serum Positive (Negative)
--- NOTE | 2020-11-28 18:16 | P.HP_ITS ---
Providers/Chief Complaint Admitting Physician: Prosper Perry M.D Chief Complaint: N/V/ABD PAIN History of Present Illness Cherrie Solomon is a 40 year old female with PMH DM type I associated with nephropathy, gastroparesis and neuropathy, s/p L BKA, HTN, CAD s/p stenting;was admitted with c/o nausea and vomitting and rt back pain going on for last couple of days.Upon arrival in the ER she was worked up for above mention complain. Pertinent Imaging Studies: CT Abdomen And Pelvis Without Contrast: No acute pathology noted. Xray chest : WNL Pertinent Labs : WBC : 15.5 , H/H : /42, PLT : 459, Na: 135, K: 3.4, BUN /SCR : 21/1, A.4 HCO3: 16, RBS: 483, Lactate : 3.8 , Calculated Osmolality : 304, Serum Ketone : Positive. ECA Medications: I.V Fluids,Insulin Drip. Review of Systems Const: Denies: fever(s) or chills Card: Denies: palpitations Resp: Denies: dyspnea, productive cough, wheezing or pain on inspiration GI: Denies: diarrhea or constipation Neuro: Denies: headache(s) Medications/Allergies Home Medications Medication Instructions Recorded Confirmed Last Taken Type No Known Home Medications 11/28/20 11/28/20 Unknown History Allergies Allergy/AdvReac Type Severity Reaction Status Date / Time morphine Allergy ALGY-Difficulty Verified 11/28/20 18:27 Breathing PFSH Acute PFSH: Medical History (Updated 11/28/20 @ 19:08 by Prosper Perry MD) CKD (chronic kidney disease) stage 2, GFR 60-89 ml/min -secondary to diabetic nephropathy -baseline Cr is around 1.0 Coronary artery disease -hx of CAD s/p stenting Diabetes mellitus type 1 Diabetic gastroparesis -secondary to DM type I Foot osteomyelitis, right Hyperlipidemia Type 1 diabetes mellitus -noted hx of DM type I complicated by nephropathy and neuropathy -A1c-7.5 (12/2019) -Accu-Cheks, scheduled and ISS, hypoglycemia precautions Surgical History Below-knee amputation of left lower extremity H/O exploratory laparotomy x 3 History of amputation of right forefoot Hx of cholecystectomy Previous section x 3 S/P coronary artery stent placement x 1 S/P percutaneous endoscopic gastrostomy (PEG) tube placement Family History Unknown Diabetes extensive, type II Other CHF (congestive heart failure) Social History Smoking and tobacco status: former smoker Quit status (tobacco): has quit using tobacco Former quit date comment: 15 yrs ago Alcohol intake: former Former alcohol use details: 15 yrs ago Household members: spouse Marital status: Sexually active: Yes (1, ) Female Reproductive History: Date of last menstrual period: 11/19/20 Vitals/I&O/Wt Last Vital Signs Temp 98.0 F 11/28/20 13:39 Pulse 110 H 11/28/20 14:06 Resp 16 11/28/20 15:34 BP 201/112 11/28/20 13:39 Pulse Ox 97 11/28/20 15:11 Weight last 48 hrs Weight 113.398 kg Physical Exam Const: COMMON NORMALS: patient oriented x3 HENMT: COMMON NORMALS: normocephalic and atraumatic HEAD & SCALP: normocephalic and atraumatic Chest: CHEST: Yes Symmetrical chest wall rise Resp: COMMON NORMALS: clear to auscultation bilaterally AUSCULTATION: clear to auscultation bilaterally Cardio: COMMON NORMALS: regular rate, regular rhythm, S1 normal heart sound present, S2 normal heart sound present, No gallops present (Cardio), No murmurs present (Cardio), No rub (Cardio) and Peripheral pulses 2+ throughout RATE: regular rate RHYTHM: regular rhythm HEART SOUNDS: S1 normal heart sound present and S2 normal heart sound present PERIPHERAL PULSES: Peripheral pulses 2+ throughout GI: COMMON NORMALS: Normal to inspection, nondistended, normoactive bowel nayan nds present, Soft to palpation, non-tender, No hepatosplenomegaly present and no masses AUSCULTATION: Yes normoactive bowel sounds PALPATION: Yes Soft to palpation and Yes No hepatosplenomegaly present RECTAL EXAM: deferred Extremity: COMMON NORMALS: no clubbing, cyanosis or edema and no pedal edema OTHER: S/P Lt BKA , S/P AMPUTATION OF RT FOREFOOT Neuro: COMMON NORMALS: patient oriented x3 Data : 11/28/20 15:00 11/28/20 15:00 Micro: Microbiology 11/28/20 15:14 Blood Culture - Preliminary Blood SPECIMEN COLLECTED 11/28/20 15:00 Blood Culture - Preliminary Blood SPECIMEN COLLECTED A&P Assessment and plan (1) DKA (diabetic ketoacidoses): NPO Currently on Insulin Drip Follow DKA Protocol. Status: Acute (2) Hypokalemia: I.V KCL 40 Meq Monitor BMP Status: Resolved (3) Leukocytosis: Low clinical suspicion for Infection. Follow Repeat Lactic acid ,blood Culture, urine analysis, procal. Will hold off on Abxs Status: Acute (4) Status post amputation: Status: Acute (5) Diabetic gastroparesis: Status: Acute (6) Type 1 diabetes mellitus: Status: Acute Qualifiers: Diabetes mellitus complication status: with other specified complication Qualified Code(s): E10.69 - Type 1 diabetes mellitus with other specified complication Additional A&P Information DVT PPX:On lovenox Code Status :Full code Disposition:Home Attestations Medical Necessity Statement*: Patient needs to be in hospital for the management of DKA.Anticipated LOS Greater then 2 midnights. 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 Code Acute Train Starter for [facility] Fwd Diagnoses DKA (diabetic ketoacidoses) E11.10 Hypokalemia E87.6 Leukocytosis D72.829 Status post amputation Z89.9 Diabetic gastroparesis E11.43; K31.84 Type 1 diabetes mellitus E10.69 Diabetes mellitus complication status: with other specified complication
[2020-11-28] MEDS: sodium chloride 0.9% 1,000 ML 999 ML IV (18:25)
--- NOTE | 2020-11-28 18:30 | PC.PHAR ---
pt states she hasnt taken medication since mar 2020-pt states she was suppose to be taking lantus 5 units hs and humalog sliding scale -ext med history dosent show the last time it was filled-ext med history shows last medication filled sucralfate 1gm on 03/07/2020
[2020-11-28] MEDS: OLANZapine 10 mg VIAL IM (18:41)
[2020-11-28] MEDS: enoxaparin 40 mg/0.4 mL Syringe SUBCUT (19:39)
[2020-11-28] MEDS: insulin regular-human 250 UNIT in sodium chloride 0.9% 250 ML 5.1 UNIT IV (19:44)
[2020-11-28] MEDS: lidocaine 1% 5 ML in potassium chloride premix 100 ML 25 ML IV (19:49)
[2020-11-28 20:17] LABS: Amphetamines Screen Urine Negative (Negative); Barbiturates Screen Urine Negative (Negative); Benzodiazepines Screen Urine Negative (Negative); Cocaine Screen Urine Negative (Negative); Opiate Screen Urine Negative (Negative); PCP Screen Urine Negative (Negative); THC Screen Urine Negative (Negative)
[2020-11-28 20:19] LABS: Add Urine Microscopic? YES; Bilirubin Urine Neg (Negative); Blood Urine 3+ (Negative); Glucose Urine UA 4+ (Normal); Ketones Urine Negative (Negative); Leukocyte Esterase Urine Negative (Negative); Nitrate Urine Negative (Negative); Protein Urine 3+ (Negative); Urine Appearance Clear (CLEAR); Urine Color Yellow (Yellow); Urobilinogen Urine Norm (Negative); pH Urine 6 (5-7)
[2020-11-28 20:20] LABS: Bacteria Urine TRACE /hpf; Squamous Epithelial Cell Urine 0-4 /hpf (0-5); WBC Urine 0-4 /hpf (0-5)
[2020-11-28 20:21] LABS: Add Urine Culture? No
[2020-11-28 21:04] LABS: ABG PCO2 34.6 mmHg (35-45); ABG PH Result 7.42 (7.35-7.45); Arterial Blood Gas Hematocrit 39.9 % (37-47); Base Excess ABG -1.8 mmol/L (-2.0-2.0); Blood Gas Allen Test Pos; Blood Gas Sample Site Radial, right; Blood Gas Sample Type Arterial; HCO3 ABG 22.2 mmol/L (22-26)
[2020-11-28] MEDS: sodium chlor 0.9% + KCl 20 mEq 20 MEQ/1,000 ML BAG 100 MEQ IV (21:12)
[2020-11-28 21:15] LABS: Glucose Point of Care 385 mg/dL (70-110)
[2020-11-28] MEDS: insulin regular-human 250 UNIT in sodium chloride 0.9% 250 ML 11.3 UNIT IV (22:02)
[2020-11-28 22:14] LABS: Glucose Point of Care 433 mg/dL (70-110)
[2020-11-28] MEDS: metoclopramide 5 mg/mL SDV 2 mL 10 MG IVP (23:35)
[2020-11-28] MEDS: oxyCODONE-APAP 5-325 mg Tablet 1 TAB PO (23:35)
[2020-11-29] VITALS (118 sets, daily range): BP systolic 114–204; BP diastolic 61–112; PULSE 86–135; RESP 14–48; TEMP 36.6–37.4; O2SAT 93–100
[2020-11-29 00:22] LABS: Glucose Point of Care 306 mg/dL (70-110)
[2020-11-29 00:22] LABS: Glucose Point of Care 220 mg/dL (70-110)
--- NOTE | 2020-11-29 00:36 | PC.NURSE ---
ASSUMING CARE Patient brought to unit from ER with normal saline with 20K running at 100 mL/hour, insulin drip at 5 units/hour, and a k-rider running at 25 mL/hour. Patient is on RA and alert and oriented x 4. Patient states that she is feeling nauseated and that her back is hurting.
[2020-11-29 00:39] LABS: Anion Gap 16.6 (5-19); Blood Urea Nitrogen 19 mg/dL (6-20); Calcium 8.6 mg/dL (8.5-10.5); Carbon Dioxide 22 mmol/L (22-29); Chloride 105 mmol/L (98-107); Glomerular Filtration Rate 54.5 mL/min (90-130); Glucose 243 mg/dL (65-115); Osmolality Calculated 300 mOsm/kg (285-295); Potassium 3.6 mmol/L (3.5-5.1); Sodium 140 mmol/L (136-145)
--- NOTE | 2020-11-29 00:43 | PC.NURSE ---
Addendum entered by Yasmine Howell RN 11/29/20 01:40: 0110- Anion gap closed. Insulin gtt shut off and 10 units lantus given. NS with 20K continues at 100 mL/hour. Will recheck blood sugar in 1 hour to ensure patient is not hyperglycemic or hypoglycemic. Carbohydrate consistent diet. Patient given apple juice and crackers with peanut butter to get something in her stomach so she doesn't become hypoglycemic. Original Note: INSULIN GTT Insulin gtt increased to 11.2 units/hour per ICU protocol. At change of shift, Dr. Perry gave verbal order to initiate D51/2NS with 20 K when blood sugar reached low target level. 10 units lantus when gap is closed and let patient eat consistent carb diet. Also start ACHS and initiate low dose sliding scale.
[2020-11-29 01:08] LABS: Glucose Point of Care 216 mg/dL (70-110)
--- NOTE | 2020-11-29 01:16 | W.ED.NAVMDI ---
HPI - Nausea/Vomiting/Diarrhea General: Chief complaint: Nausea/Vomiting/Diarrhea Stated complaint: N/V/ABD PAIN Time Seen by Provider: 11/28/20 13:38 Source: patient and EMS Mode of arrival: EMS Limitations: other (pain) History of Present Illness: HPI Narrative: This is a 40 year old female with a history of DM, L BKA, and chronic pancreatitis who presents to the ED with severe abdominal pain, nausea and vomiting that started a few days ago. An accurate history cannot be obtained from her because she is in a lot of pain. She is unable to keep anything down. She states that she does not have any fever. No sick contacts as far as she can tell. She was brought in by ambulance for evaluation. MD elicited complaint: nausea, vomiting and abdominal pain Pertinent past history: other (gastroparesis) Onset (ago): day(s) (2) Description of vomiting: food contents Associated nausea: Yes Associated abdominal pain: Yes Location of pain: RUQ, RLQ and R flank Pain consistency: constant Severity: severe Pain scale (0-10): 10 Quality: cramping Exacerbating factors: none Relieving factors: none Associated symtoms: Reports anorexia and nausea; Denies altered mental status, anxiety, bloating, change in vision, chest pain, cough, diaphoresis, decreased urine output, dizziness, dysuria, epistaxis, fatigue, fecal incontinence, fevers/chills, headache(s), malaise, myalgias, numbness, palpitations, rash, short of breath, syncope, tenesmus, tinnitus or weakness Review of Systems General: Reports: 10 or more systems reviewed and unremarkable except in HPI and below Const: Denies: fatigue, malaise or diaphoresis Eyes: Denies: change in vision ENMT: Denies: tinnitus or epistaxis Card: Denies: chest pain, palpitations or syncope GI: Reports: nausea; Denies: bloating or fecal incontinence : Denies: dysuria Neuro: Denies: headache(s) or dizziness Psych: Denies: anxiety PFS ED PFSH: Medical History CKD (chronic kidney disease) stage 2, GFR 60-89 ml/min -secondary to diabetic nephropathy -baseline Cr is around 1.0 Coronary artery disease -hx of CAD s/p stenting Diabetes mellitus type 1 Diabetic gastroparesis -secondary to DM type I DKA (diabetic ketoacidoses) Foot osteomyelitis, right Hyperlipidemia Hypertension Hypokalemia Leukocytosis Type 1 diabetes mellitus -noted hx of DM type I complicated by nephropathy and neuropathy Surgical History Below-knee amputation of left lower extremity H/O exploratory laparotomy x 3 History of amputation of right forefoot Hx of cholecystectomy Previous section x 3 S/P coronary artery stent placement x 1 S/P percutaneous endoscopic gastrostomy (PEG) tube placement Status post amputation Family History Unknown Diabetes extensive, type II Other CHF (congestive heart failure) Social History Smoking and tobacco status: former smoker Quit status (tobacco): has quit using tobacco Former quit date comment: 15 yrs ago Alcohol intake: former Former alcohol use details: 15 yrs ago Household members: spouse Marital status: Sexually active: Yes (1, ) Female Reproductive History: Date of last menstrual period: 11/19/20 Physical Exam Const: COMMON NORMALS: average body habitus, patient oriented x3, no limitations, healthy appearing, alert and well nourished EXAM LIMITATIONS: no altered mental status GENERAL APPEARANCE: in distress (painful) HENMT: COMMON NORMALS: normocephalic, atraumatic and moist oral mucous membranes HEAD & SCALP: normocephalic and atraumatic Eye: COMMON NORMALS: Equal, round and reactive pupils present, EOMs intact bilaterally, conjunctivae normal and no scleral icterus CONJUNCTIVA: Yes conjunctivae normal PUPIL: Yes Equal, round and reactive pupils present Neck/C-Spine: COMMON NORMALS: no meningeal signs and no JVD Resp: COMMON NORMALS: normal respiratory effort, No retractions, No use of accessory muscles, clear to auscultation bilaterally and percussion normal AUSCULTATION: clear to auscultation bilaterally PERCUSSION: percussion normal Cardio: COMMON NORMALS: no JVD, regular rhythm, S1 normal heart sound present, S2 normal heart sound present, No gallops present (Cardio), No clicks present (Cardio), No murmurs present (Cardio), No rub (Cardio) and Peripheral pulses 2+ throughout RATE: tachycardic RHYTHM: regular rhythm HEART SOUNDS: S1 normal heart sound present and S2 normal heart sound present PERIPHERAL PULSES: Peripheral pulses 2+ throughout GI: COMMON NORMALS: Normal to inspection, nondistended, normoactive bowel sounds present, Soft to palpation, No hepatosplenomegaly present, no masses and no bruits PALPATION: Yes Soft to palpation, Yes Tenderness to palpation present (GI) (diffuse tenderness) and Yes No hepatosplenomegaly present Extremity: COMMON NORMALS: full ROM, capillary refill normal, no calf tenderness and no pedal edema NARRATIVE EXTREMITY EXAM: left BKA Neuro: COMMON NORMALS: patient oriented x3 SENSORIUM/ORIENTATION: Yes alert MENINGEAL SIGNS: Yes no meningeal signs Skin: COMMON NORMALS: no rashes or lesions noted, no wounds, turgor normal, no jaundice, no petechiae and no mottling GENERAL SKIN EXAM: no rashes or lesions noted and turgor normal Course Consultations: Consultation #1: Discussed the patient with Dr. Perry, hospitalist, and he kindly accepted the patient to his service. Time: 18:09 Vital Signs: Vital signs: Vital Signs Temperature 97.9 F 12/01/20 14:06 Pulse Rate 73 12/01/20 14:06 Respiratory Rate 18 12/01/20 14:06 Blood Pressure 152/84 12/01/20 14:06 Pulse Oximetry 97 12/01/20 14:06 MDM - Nausea/Vomiting/Diarrhea MDM Narrative: Medical decision making narrative: 40 year old female diabetic patient who presents to the ED with abdominal pain. Evaluation in the ED is consistent with DKA, with hyperglycemia, ketosis, acidosis as evidenced by CO2 levels. She is hydrated in the ED, started on IV fluids, and IV insulin drip. Pain was controlled with IV pain medications. She is admitted to the ICU for further evaluation and management. Medical Records: Attestation: I reviewed the patient's medical records. Lab Data: Attestation: I reviewed the patient's lab results. Labs: Lab Results 11/28/20 11/28/20 11/28/20 Range/Units 15:00 15:00 15:00 WBC 15.5 H (4.0-10.0) 10^3/ uL RBC 5.04 (4.1-5.3) 10^6/u L Hgb 13.9 (11.5-15.3) g/dL Hct 42.4 (37.0-47.0) % MCV 84.1 (81-99) fL MCH 27.6 L (28.0-34.0) pg MCHC 32.8 (30.0-36.0) g/dL RDW 14.6 (12.1-15.1) % Plt Count 459 H (130-400) 10^3/c mm MPV 9.0 (7.4-10.4) fL Neut % (Auto) 93.5 % Lymph % (Auto) 4.3 % Nobles % (Auto) 1.3 % Eos % (Auto) 0.0 % Baso % (Auto) 0.3 % Neut # (Auto) 14.49 H (1.8-7.7) 10^3/u L Lymph # (Auto) 0.7 L (0.8-4.8) 10^3/u L Nobles # (Auto) 0.2 (0.2-0.9) 10^3/u L Eos # (Auto) 0.0 (0.0-0.8) 10^3/u L Baso # (Auto) 0.1 (0.0-0.1) 10^3/u L Nucleated RBC % (a uto) 0 % Nucleated RBCs # 0.0 /100WBC Sodium 135 L (136-145) mmol/L Potassium 3.4 L (3.5-5.1) mmol/L Chloride 99 (98-107) mmol/L Carbon Dioxide 16 L (22-29) mmol/L Anion Gap 23.4 H (5-19) BUN 21 H (6-20) mg/dL Creatinine 1.0 H (0.5-0.9) mg/dL GFR Calculation 60.8 L (90-130) mL/min Glucose 483 H (65-115) mg/dL Calculated Osmolal ity 304 H (285-295) mOsm/k g Lactate 3.8 H (0.5-2.2) mmol/L Calcium 8.7 (8.5-10.5) mg/dL Total Bilirubin 0.4 (0.15-1.2) mg/dL AST 18 (0-32) U/L ALT 14 (0-33) U/L Alkaline Phosphata se 163 H (35-105) IU/L C-Reactive Protein 17.7 H (0.0-4.9) mg/L Total Protein 7.4 (6.6-8.7) g/dL Albumin 3.6 (3.5-5.2) g/dL Globulin 3.8 (1.3-4.6) g/dL Lipase 19 (13-60) U/L HCG, Qual (Negative) Serum Ketones (Negative) 11/28/20 11/28/20 11/28/20 Range/Units 15:00 15:00 16:45 WBC (4.0-10.0) 10^3/ uL RBC (4.1-5.3) 10^6/u L Hgb (11.5-15.3) g/dL Hct (37.0-47.0) % MCV (81-99) fL MCH (28.0-34.0) pg MCHC (30.0-36.0) g/dL RDW (12.1-15.1) % Plt Count (130-400) 10^3/c mm MPV (7.4-10.4) fL Neut % (Auto) % Lymph % (Auto) % Nobles % (Auto) % Eos % (Auto) % Baso % (Auto) % Neut # (Auto) (1.8-7.7) 10^3/u L Lymph # (Auto) (0.8-4.8) 10^3/u L Nobles # (Auto) (0.2-0.9) 10^3/u L Eos # (Auto) (0.0-0.8) 10^3/u L Baso # (Auto) (0.0-0.1) 10^3/u L Nucleated RBC % (a uto) % Nucleated RBCs # /100WBC Sodium (136-145) mmol/L Potassium (3.5-5.1) mmol/L Chloride (98-107) mmol/L Carbon Dioxide (22-29) mmol/L Anion Gap (5-19) BUN (6-20) mg/dL Creatinine (0.5-0.9) mg/dL GFR Calculation (90-130) mL/min Glucose (65-115) mg/dL Calculated Osmolal ity (285-295) mOsm/k g Lactate (0.5-2.2) mmol/L Calcium (8.5-10.5) mg/dL Total Bilirubin (0.15-1.2) mg/dL AST (0-32) U/L ALT (0-33) U/L Alkaline Phosphata se (35-105) IU/L C-Reactive Protein (0.0-4.9) mg/L Total Protein (6.6-8.7) g/dL Albumin (3.5-5.2) g/dL Globulin (1.3-4.6) g/dL Lipase (13-60) U/L HCG, Qual Negative Negative (Negative) Serum Ketones Positive H (Negative) Imaging Data^: CT Abd/Pel: Attestation: I personally reviewed and interpreted this imaging study as follows: Radiologist's impression: [address] [address] [address] Scan Report Signed Patient: Dayan Solomon #: [id number] : 1980Acct#:[id number] Age/Sex: 40 / FADM Date: 11/28/20 Loc: ERRoom/Bed: Attending Dr: Ordering Provider/Ordering MD: Nakia Rivera MD, [facility] [place] Date of Service: 11/28/20 Procedure(s): CT kidney stone 64160 Accession Number(s): [id number] Report Number: [id number] PROCEDURE INFORMATION: Exam: CT Abdomen And Pelvis Without Contrast Exam date and time: 11/28/2020 1:58 PM Age: 40 years old Clinical indication: Abdominal pain; Flank; Right; Prior surgery; Surgery type: Peg tube, gb, exploratory; Additional info: Right flank pain TECHNIQUE: Imaging protocol: Computed tomography of the abdomen and pelvis without contrast. Axial, coronal and sagittal reformatted images were created and reviewed. Radiation optimization: All CT scans at this facility use at least one of these dose optimization techniques: automated exposure control; mA and/or kV adjustment per patient size (includes targeted exams where dose is matched to clinical indication); or iterative reconstruction. COMPARISON: CT kidney stone [id number] 03/13/2020 6:23 AM RADIATION DOSE METRICS: Total DLP (mGy-cm): 1847.63 FINDINGS: Mediastinal space: Small hiatal hernia. Liver: Mild hepatomegaly. Gallbladder and bile ducts: Status post cholecystectomy. No biliary ductal dilatation. Pancreas: Unremarkable. Spleen: Unremarkable. Adrenal glands: Normal. No mass. Kidneys and ureters: No mass. No radiodense calculi. No hydronephrosis. Stomach and bowel: No bowel wall thickening. No obstruction. No pneumatosis. Appendix: Normal. Intraperitoneal space: No free fluid. No organized fluid collection. No free air. Vasculature: Mild atherosclerotic disease. No aneurysm. Lymph nodes: No pathologically enlarged lymph nodes. Urinary bladder: Unremarkable as visualized. Reproductive: Unremarkable. Bones/joints: No acute osseous abnormality. Osteopenia. Degenerative changes. Mild chronic loss of height along the T12 superior endplate. Soft tissues: Diastasis of the rectus abdominus musculature with associated fat containing umbilical hernia. Other findings: Elevated left hemidiaphragm. CT/CT kidney stone [id number] IMPRESSION: 1. Limited noncontrast examination without CT evidence of acute intra-abdominal or pelvic pathology. 2. Additional findings, as above. Radiation Dose CTDIVOL = (mGy): DLP = 1847.63 (mGy-cm) Dictated By:En Raya MD Signed By:En Raya MDSigned Date/Time:11/28/201736 DD/ 34 CXR: Attestation: I personally reviewed and interpreted this imaging study as follows: Radiologist's impression: [address] [address] XRay Report Signed Patient: Dayan Solomon #: [id number] : 1980Acct#:[id number] Age/Sex: 40 / FADM Date: 11/28/20 Loc: ERRoom/Bed: Attending Dr: Ordering Provider/Ordering MD: Nakia Rivera MD, [facility] [place] Date of Service: 11/28/20 Procedure(s): XR chest 1V portable [id number] Accession Number(s): [id number] Report Number: [id number] PROCEDURE INFORMATION: Exam: XR Chest Exam date and time: 11/28/2020 2:20 PM Age: 40 years old Clinical indication: Other: N/v, abd pain; Other: Abdominal pain; Patient HX: PT uncooperative; Additional info: Vomiting TECHNIQUE: Imaging protocol: XR of the chest. Views: 1 view. COMPARISON: CR XR chest 1V portable [id number] 03/11/2020 4:02 PM FINDINGS: Lungs: Unremarkable. No consolidation. Pleural spaces: Unremarkable. No pleural effusion. No pneumothorax. Heart/Mediastinum: Unremarkable. No cardiomegaly. Bones/joints: Unremarkable. XR/XR chest 1V portable [id number] IMPRESSION: No acute findings. Dictated By:Micheal Santos Signed By:Lynne Santos Date/Time:11/28/201448 DD/ 46 Critical Care Time Critical Care Time: Total Critical Care Time: 60 Attestation: This case had a high probability of a clinically significant, sudden, or life threatening deterioration of this patient's condition which required my full and direct attention, intervention and personal management. Discharge Plan Discharge Patient Disposition: Admitted As Inpatient Admit Provider: Prosper Perry Clinical Impression: DKA (diabetic ketoacidoses) Qualifiers: Diabetes mellitus type: type 1 Diabetes mellitus complication detail: without coma Qualified Code(s): E10.10 - Type 1 diabetes mellitus with ketoacidosis without coma Condition: Stable Discharge Diet: Diabetic Discharge Activity: Resume usual activity 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 Code ED Gaming Invest[employer] for [facility]
[2020-11-29] MEDS: insulin glargine 100 units/1 mL 10 UNIT SUBCUT ×3 (01:18→20:30)
[2020-11-29] MEDS: sodium chlor 0.9% + KCl 20 mEq 20 MEQ/1,000 ML BAG 100 MEQ IV ×3 (01:18→23:29)
--- NOTE | 2020-11-29 01:38 | PC.NURSE ---
HYPERTENSION 2300 hour- Dr. Gonzalez notified of hypertension and tachycardia. States to give pain medication and that should help. 0130- Patient remains hypertensive and tachycardic. Dr. Gonzalez called and gave order for one time 10 mg dose IV cardizem.
[2020-11-29 01:55] LABS: Glucose Point of Care 262 mg/dL (70-110)
[2020-11-29] MEDS: sodium chloride 0.9% 1,000 ML 999 ML IV (02:49)
--- NOTE | 2020-11-29 02:55 | PC.NURSE ---
TACHYCARDIA Patient in sinus tachycardia in the 140s. Dr. Gonzalez called. Order for 1L normal saline bolus.
[2020-11-29 02:57] LABS: Glucose Point of Care 341 mg/dL (70-110)
[2020-11-29 04:04] LABS: Basophils % 0.1 %; Hematocrit 34.9 % (37.0-47.0); Hemoglobin 11.4 g/dL (11.5-15.3); Lymphocytes # 0.9 10^3/uL (0.8-4.8); Lymphocytes % 6.4 %; Mean Corpuscular HGB Conc 32.7 g/dL (30.0-36.0); Mean Corpuscular Hemoglobin 27.9 pg (28.0-34.0); Mean Corpuscular Volume 85.3 fL (81-99); Mean Platelet Volume 8.6 fL (7.4-10.4); Monocytes # 0.7 10^3/uL (0.2-0.9); Monocytes % 4.7 %; Neutrophils # 12.28 10^3/uL (1.8-7.7); Neutrophils % 87.9 %; Nucleated Red Blood Cells % 0 %; Platelet Count 406 10^3/cmm (130-400); Red Blood Count 4.09 10^6/uL (4.1-5.3); Red Cell Distribution Width 14.9 % (12.1-15.1)
[2020-11-29] MEDS: ondansetron 2 mg/ML SDV 2 mL 4 MG IVP ×4 (04:11→21:59)
[2020-11-29 04:19] LABS: Lactic Sepsis W/Reflex 1.6 mmol/L (0.5-2.2)
[2020-11-29 04:22] LABS: Alanine Aminotransferase 10 U/L (0-33); Albumin Level 2.8 g/dL (3.5-5.2); Alkaline Phosphatase 125 IU/L (35-105); Anion Gap 12.8 (5-19); Aspartate Amino Transferase 12 U/L (0-32); Blood Urea Nitrogen 21 mg/dL (6-20); Calcium 7.6 mg/dL (8.5-10.5); Carbon Dioxide 20 mmol/L (22-29); Chloride 109 mmol/L (98-107); Glomerular Filtration Rate 54.5 mL/min (90-130); Glucose 341 mg/dL (65-115); Magnesium 1.7 mg/dL (1.7-2.3); Osmolality Calculated 302 mOsm/kg (285-295); Phosphorus 2.8 mg/dL (2.5-4.5); Potassium 3.8 mmol/L (3.5-5.1); Sodium 138 mmol/L (136-145); Total Bilirubin 0.2 mg/dL (0.15-1.2); Total Protein 5.8 g/dL (6.6-8.7)
[2020-11-29 04:29] LABS: Procalcitonin 0.19 ng/mL (0-0.5)
[2020-11-29 04:54] LABS: Estmated Average Glucose 223; Hemoglobin A1C 9.4 % (4.0-6.0)
[2020-11-29 05:50] LABS: Glucose Point of Care 316 mg/dL (70-110)
--- NOTE | 2020-11-29 06:09 | PC.NURSE ---
BG/SLIDING SCALE Dr. Gonzalez notified via voalte of blood glucose of 316, time insulin gtt turned off and when 10 units lantus given and was asked if he wanted her to have anything at this time. Notified of no sliding scale orders also. Physician put in orders for 10 units of glargine at bedtime but first dose now, clarified that with him. Medium dose sliding scale regimen also put in WM&BEDTIME.
--- NOTE | 2020-11-29 07:00 | PC.NURSE ---
Bedside report received, care assumed. Monitor alarms, plan of care et previous orders reviewed. Please see physical assessment et vital sign flowsheet for details.
[2020-11-29 08:39] LABS: Anion Gap 11.7 (5-19); Blood Urea Nitrogen 19 mg/dL (6-20); Calcium 7.6 mg/dL (8.5-10.5); Carbon Dioxide 22 mmol/L (22-29); Chloride 107 mmol/L (98-107); Glomerular Filtration Rate 54.5 mL/min (90-130); Glucose 305 mg/dL (65-115); Osmolality Calculated 298 mOsm/kg (285-295); Potassium 3.7 mmol/L (3.5-5.1); Sodium 137 mmol/L (136-145)
[2020-11-29] MEDS: oxyCODONE-APAP 5-325 mg Tablet 1 TAB PO ×3 (08:56→23:28)
[2020-11-29] MEDS: amlodipine 10 mg Tablet PO (08:56)
[2020-11-29 09:34] LABS: Glucose Point of Care 315 mg/dL (70-110)
--- NOTE | 2020-11-29 09:35 | PC.NURSE ---
Patient vomited times 1. Emesis had small bits of food et clear liquid. To help with nausea, patient was instructed to take some slow deep breaths with some alcohol swabs below her nose. Patient does state that her nausea has slowed down a bit. If patient continues to vomit, Dr. Perry will be notified.
--- NOTE | 2020-11-29 09:49 | PC.NURSE ---
Patient had one emesis with some undigested food in clear liquid.
--- NOTE | 2020-11-29 10:55 | PC.CHAP ---
Pastoral Care Encounter/Spiritual Assessment Type of Contact [] Declined sap portal developer visit [] Patient/Family/Request visit [] Outpatient visit [] Follow-up visit [] Physician referral [] Code/Alert [x] Routine visit [] Staff referral [] Actively dying [x] Patient sleeping [] Family support [] [] Out of room [] Palliative care [] [] Receiving care in room [] Pre-surgical visit [] Trauma [] Long length of stay [x] ICU visit [] Other: Relational/Emotional Strength [] Patient feels connected with others/family/visitors/staff [] Distress [] Loneliness/isolation [] Abandonment Spirituality of Patient [] Person of Vanessa [] Attends Jew of their Vanessa [] Believes in Prayer [] Reads Bible or Adventist materials [] There are Spiritual issues to be addressed 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 Interventions [] Prayer [] Active listening [] Non-anxious presence [] Spiritual/emotional support [] Crisis/trauma care [] Spiritual counseling [] Bereavement support [] Provided bereavement packet [] Provided Bible/devotional materials [] Provided toy/stuffed animal, coloring book to patient or family member [] Provided Communion [] Anointing/[place] [] Salvation [] Completed spiritual assessment [] Other: Impact on Illness or Injury [] Angry [] Fearful [] Anxious [] Often cries [] Exhaustion [] Unable to work [] Unable to attend jehovah's witness [] Unable to walk/stand [] Unable to read [] Unable to drive [] Unable to eat/drink [] Unable to sleep [] Unable to be with family [] Patient intubated [] Other: Summary Time spent with patient
--- NOTE | 2020-11-29 11:29 | PM.PN ---
Subjective Subjective: Interval history: Patient was seen and examined this morning. Anion gap was closed. She was switched to Lantus and NovoLog, with sliding scale insulin. Continue to have nausea and vomiting. Her other vitals and labs have been reviewed. Vitals/I&O/Wt Last Vital Signs Temp 98.7 F 11/29/20 08:00 Pulse 109 H 11/29/20 10:00 Resp 16 11/29/20 10:00 BP 146/81 11/29/20 09:30 Pulse Ox 97 11/29/20 10:00 11/28/20 11/29/20 11/29/20 22:59 06:59 14:59 Intake Total 11.73 / 11.73 1581.010 / 1592.740 Output Total 1200 / 1200 Balance 11.73 / 11.73 381.010 / 392.740 -1 / -1 Weight last 48 hrs Weight 113.398 kg Physical Exam Const: COMMON NORMALS: patient oriented x3 HENMT: COMMON NORMALS: normocephalic and atraumatic HEAD & SCALP: normocephalic and atraumatic Chest: CHEST: Yes Symmetrical chest wall rise Resp: COMMON NORMALS: clear to auscultation bilaterally AUSCULTATION: clear to auscultation bilaterally Cardio: COMMON NORMALS: regular rate, regular rhythm, S1 normal heart sound present, S2 normal heart sound present, No gallops present (Cardio), No murmurs present (Cardio), No rub (Cardio) and Peripheral pulses 2+ throughout RATE: regular rate RHYTHM: regular rhythm HEART SOUNDS: S1 normal heart sound present and S2 normal heart sound present PERIPHERAL PULSES: Peripheral pulses 2+ throughout GI: COMMON NORMALS: Normal to inspection, nondistended, normoactive bowel sounds present, Soft to palpation, non-tender, No hepatosplenomegaly present and no masses AUSCULTATION: Yes normoactive bowel sounds PALPATION: Yes Soft to palpation and Yes No hepatosplenomegaly present RECTAL EXAM: deferred Extremity: COMMON NORMALS: no clubbing, cyanosis or edema and no pedal edema OTHER: S/P Lt BKA , S/P AMPUTATION OF RT FOREFOOT Neuro: COMMON NORMALS: patient oriented x3 Urinary Catheter Management^: Riojas: Cath Placed During This Visit: yes Reason for Continuing Indwelling Catheter: Accurate Measurement of Urinary Output in Critically Ill Patients Urinary Catheter Date of Insertion: 11/28/20 Urinary Catheter Time of Insertion: 19:55 Data : 11/29/20 03:17 11/29/20 08:08 Micro: Microbiology 11/28/20 15:14 Blood Culture - Preliminary Blood SPECIMEN COLLECTED 11/28/20 15:00 Blood Culture - Preliminary Blood SPECIMEN COLLECTED A&P Assessment and plan (1) DKA (diabetic ketoacidoses): Resolved Initially NPO.Currently on diabetic diet. Initially on Insulin Drip.Anion gap was closed. She was switched to Lantus 10 u and 6 Us NovoLog Premeal , with sliding scale insulin. Status: Acute (2) Hypokalemia: I.V KCL 40 Meq Monitor BMP Status: Resolved (3) Leukocytosis: Low clinical suspicion for Infection. Follow Repeat Lactic acid: Procal:0.19 Blood Culture:NTD urine analysis: Clean Will hold off on Abxs Status: Acute (4) Status post amputation: Status: Acute (5) Diabetic gastroparesis: Patient is constantly complaining of nausea and vomiting, as well as generalized abdominal pain. Reglan 5 mg IV every q6h Zofran 4 mg i.v q4h Hydromorphone 2 mg po q6 h daily Status: Acute (6) Type 1 diabetes mellitus: Status: Acute Qualifiers: Diabetes mellitus complication status: with other specified complication Qualified Code(s): E10.69 - Type 1 diabetes mellitus with other specified complication (7) Hypertension: Clonidine 0.1 mg p.o. TID Amlodipine 10 mg p.o. daily Labetalol 10 mg IV every 4 hours as needed Status: Acute Additional A&P Information DVT PPX:On lovenox Code Status :Full code Disposition:Home Attestations Medical Necessity Statement*: Patient needs to be in hospital for the management of uncontrolled Diabetes,diabetic gastropresis,intractable vomiting 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 Code Acute Art Gilder for [facility] Fwd Exam Detailed Diagnoses DKA (diabetic ketoacidoses) E11.10 Hypokalemia E87.6 Leukocytosis D72.829 Status post amputation Z89.9 Diabetic gastroparesis E11.43; K31.84 Type 1 diabetes mellitus E10.69 Diabetes mellitus complication status: with other specified complication Hypertension I10
[2020-11-29 12:20] LABS: Glucose Point of Care 125 mg/dL (70-110)
--- NOTE | 2020-11-29 13:40 | PC.NURSE ---
Patient unable to eat lunch due to vomiting. Notified Dr. Perry. New orders noted et implemented. Will continue to monitor.
[2020-11-29] MEDS: metoclopramide 5 mg/mL SDV 2 mL 10 MG IVP (14:27)
--- NOTE | 2020-11-29 15:05 | PC.NURSE ---
Patient continues to throw up. Patient requesting something stronger for apin. Patient did received oxycodone at 1215 et when patient vomited the pill was not in the emesis. Patient also hypertensive, has tachycardia et appears to be in withdrawal of something. Notified Dr. Perry of patient's status. New orders noted et implemented. Will continue to monitor.
--- NOTE | 2020-11-29 15:09 | PC.NURSE ---
RN informed patient of new orders for stronger pain meds. When told the patient began to cry et beg RN to call him et see if he would order it IV. RN told patient that i explained her status et his orders were for dilaudid PO. RN also told patient that if she gets sick, we could notify him at that time. Will continue to monitor.
[2020-11-29 16:23] LABS: Glucose Point of Care 166 mg/dL (70-110)
[2020-11-29] MEDS: cloNIDine 0.1 mg Tablet PO ×2 (16:26→20:28)
[2020-11-29 17:37] LABS: Glucose Point of Care 204 mg/dL (70-110)
[2020-11-29] MEDS: labetalol 5 mg/mL SDV 20mL 10 MG IVP (18:09)
[2020-11-29] MEDS: metoclopramide 5 mg/mL SDV 2 mL IVP ×2 (18:09→23:27)
--- NOTE | 2020-11-29 18:15 | PC.NURSE ---
Patient requesting to speak with the physician. Dr. Perry in unit. Dr. Perry went to speak to patient. Patient requesting IV dilaudid just this one time. New orders noted et implemented. Will continue to monitor.
[2020-11-29 19:02] LABS: Oxygen Device RA
[2020-11-29 20:28] LABS: Glucose Point of Care 178 mg/dL (70-110)
[2020-11-29] MEDS: enoxaparin 40 mg/0.4 mL Syringe SUBCUT (20:28)
[2020-11-29 21:53] LABS: Glucose Point of Care 162 mg/dL (70-110)
--- NOTE | 2020-11-29 22:22 | PC.NURSE ---
ASSUMING CARE Patient is resting in bed on room air and on NS with 20 K at 100 mL/hour. Patient denies any needs at this time and was wanting to go back to sleep.
--- NOTE | 2020-11-29 22:25 | PC.NURSE ---
REPORT CALLED Report called to Azalia on Med/Surg. Patient taken via wheelchair, on room air, and is in room 277-2.
[2020-11-30] VITALS (12 sets, daily range): BP systolic 105–142; BP diastolic 60–79; PULSE 73–81; RESP 17–19; TEMP 36.4–36.9; O2SAT 95–97
[2020-11-30] MEDS: ondansetron 2 mg/ML SDV 2 mL 4 MG IVP ×5 (02:56→17:26)
[2020-11-30 05:45] LABS: Basophils % 0.3 %; Eosinophils % 0.3 %; Hematocrit 33.9 % (37.0-47.0); Hemoglobin 10.6 g/dL (11.5-15.3); Lymphocytes # 2.7 10^3/uL (0.8-4.8); Lymphocytes % 22.2 %; Mean Corpuscular HGB Conc 31.3 g/dL (30.0-36.0); Mean Corpuscular Hemoglobin 27.5 pg (28.0-34.0); Mean Corpuscular Volume 88.1 fL (81-99); Mean Platelet Volume 8.7 fL (7.4-10.4); Monocytes # 0.8 10^3/uL (0.2-0.9); Monocytes % 6.7 %; Neutrophils # 8.46 10^3/uL (1.8-7.7); Nucleated Red Blood Cells % 0 %; Platelet Count 371 10^3/cmm (130-400); Red Blood Count 3.85 10^6/uL (4.1-5.3); Red Cell Distribution Width 15.2 % (12.1-15.1); White Blood Count 12.1 10^3/uL (4.0-10.0)
[2020-11-30] MEDS: metoclopramide 5 mg/mL SDV 2 mL IVP ×3 (06:04→17:26)
[2020-11-30 06:05] LABS: Alanine Aminotransferase 12 U/L (0-33); Albumin Level 2.6 g/dL (3.5-5.2); Alkaline Phosphatase 107 IU/L (35-105); Anion Gap 10.2 (5-19); Aspartate Amino Transferase 14 U/L (0-32); Blood Urea Nitrogen 16 mg/dL (6-20); Calcium 7.5 mg/dL (8.5-10.5); Carbon Dioxide 24 mmol/L (22-29); Chloride 108 mmol/L (98-107); Globulin 2.9 g/dL (1.3-4.6); Glomerular Filtration Rate 49.3 mL/min (90-130); Glucose 111 mg/dL (65-115); Osmolality Calculated 290 mOsm/kg (285-295); Potassium 3.2 mmol/L (3.5-5.1); Sodium 139 mmol/L (136-145); Total Bilirubin 0.2 mg/dL (0.15-1.2); Total Protein 5.5 g/dL (6.6-8.7)
[2020-11-30] MEDS: oxyCODONE-APAP 5-325 mg Tablet 1 TAB PO ×4 (06:06→19:58)
[2020-11-30 06:33] LABS: Glucose Point of Care 109 mg/dL (70-110)
[2020-11-30] MEDS: cloNIDine 0.1 mg Tablet PO (08:46)
[2020-11-30] MEDS: amlodipine 10 mg Tablet PO (08:47)
[2020-11-30] MEDS: sodium chlor 0.9% + KCl 20 mEq 20 MEQ/1,000 ML BAG 75 MEQ IV (09:20)
[2020-11-30 11:05] LABS: Glucose Point of Care 143 mg/dL (70-110)
[2020-11-30 16:51] LABS: Glucose Point of Care 98 mg/dL (70-110)
[2020-11-30] MEDS: enoxaparin 40 mg/0.4 mL Syringe SUBCUT (19:57)
--- NOTE | 2020-11-30 20:43 | PM.PN ---
Subjective Subjective: Interval history: No acute events overnight, nausea and vomiting has subsided, tolerating oral diet. Blood sugar is well controlled. Other vitals and labs have been Vitals/I&O/Wt Last Vital Signs Temp 97.6 F 11/30/20 19:43 Pulse 79 11/30/20 19:43 Resp 17 11/30/20 19:58 BP 114/65 11/30/20 19:43 Pulse Ox 95 11/30/20 19:43 11/30/20 11/30/20 11/30/20 06:59 14:59 22:59 Intake Total 480 / 2605 1240 / 1240 360 / 1600 Output Total 450 / 1852 400 / 400 Balance 30 / 753 1240 / 1240 -40 / 1200 Physical Exam Const: COMMON NORMALS: patient oriented x3 HENMT: COMMON NORMALS: normocephalic and atraumatic HEAD & SCALP: normocephalic and atraumatic Chest: CHEST: Yes Symmetrical chest wall rise Resp: COMMON NORMALS: clear to auscultation bilaterally AUSCULTATION: clear to auscultation bilaterally Cardio: COMMON NORMALS: regular rate, regular rhythm, S1 normal heart sound present, S2 normal heart sound present, No gallops present (Cardio), No murmurs present (Cardio), No rub (Cardio) and Peripheral pulses 2+ throughout RATE: regular rate RHYTHM: regular rhythm HEART SOUNDS: S1 normal heart sound present and S2 normal heart sound present PERIPHERAL PULSES: Peripheral pulses 2+ throughout GI: COMMON NORMALS: Normal to inspection, nondistended, normoactive bowel sounds present, Soft to palpation, non-tender, No hepatosplenomegaly present and no masses AUSCULTATION: Yes normoactive bowel sounds PALPATION: Yes Soft to palpation and Yes No hepatosplenomegaly present RECTAL EXAM: deferred Extremity: COMMON NORMALS: no clubbing, cyanosis or edema and no pedal edema OTHER: S/P Lt BKA , S/P AMPUTATION OF RT FOREFOOT Neuro: COMMON NORMALS: patient oriented x3 Urinary Catheter Management^: Riojas: Cath Placed During This Visit: yes Reason for Continuing Indwelling Catheter: Other Urinary Catheter Date of Insertion: 11/28/20 Urinary Catheter Time of Insertion: 19:55 Data : 11/30/20 05:00 11/30/20 05:00 A&P Assessment and plan (1) DKA (diabetic ketoacidoses): Resolved Initially NPO.Currently on diabetic diet. Initially on Insulin Drip.Anion gap was closed. She was switched to Lantus 10 u and 6 Us NovoLog Premeal , with low dose sliding scale insulin. Status: Acute (2) Hypokalemia: I.V KCL 40 Meq Monitor BMP Status: Resolved (3) Leukocytosis: Low clinical suspicion for Infection. Follow Repeat Lactic acid: Procal:0.19 Blood Culture:NTD urine analysis: Clean Will hold off on Abxs Status: Acute (4) Status post amputation: Status: Acute (5) Diabetic gastroparesis: Patient is constantly complaining of nausea and vomiting, as well as generalized abdominal pain. Reglan 5 mg IV every q6h Zofran 4 mg i.v q4h Hydromorphone 2 mg po q6 h daily Status: Acute (6) Type 1 diabetes mellitus: Status: Acute Qualifiers: Diabetes mellitus complication status: with other specified complication Qualified Code(s): E10.69 - Type 1 diabetes mellitus with other specified complication (7) Hypertension: Clonidine 0.1 mg p.o. TID Amlodipine 10 mg p.o. daily Labetalol 10 mg IV every 4 hours as needed Status: Acute Additional A&P Information DVT PPX:On lovenox Code Status :Full code Disposition:Home Attestations Medical Necessity Statement*: Patient needs to be in hospital for management of diabetic gastroparesis, persistent nausea vomiting, IV hydration. 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
[2020-11-30 20:55] LABS: Glucose Point of Care 139 mg/dL (70-110)
[2020-11-30] MEDS: insulin glargine 100 units/1 mL 10 UNIT SUBCUT (22:22)
[2020-12-01] VITALS (7 sets, daily range): BP systolic 98–157; BP diastolic 61–92; PULSE 65–73; RESP 17–18; TEMP 36.6–36.8; O2SAT 92–97
[2020-12-01] MEDS: oxyCODONE-APAP 5-325 mg Tablet 1 TAB PO ×2 (01:00→05:18)
[2020-12-01] MEDS: sodium chlor 0.9% + KCl 20 mEq 20 MEQ/1,000 ML BAG 75 MEQ IV (02:37)
[2020-12-01 05:39] LABS: Basophils % 0.5 %; Eosinophils # 0.2 10^3/uL (0.0-0.8); Eosinophils % 2.6 %; Hematocrit 32.1 % (37.0-47.0); Hemoglobin 10.1 g/dL (11.5-15.3); Lymphocytes # 2.4 10^3/uL (0.8-4.8); Lymphocytes % 32.2 %; Mean Corpuscular HGB Conc 31.5 g/dL (30.0-36.0); Mean Corpuscular Hemoglobin 28.2 pg (28.0-34.0); Mean Corpuscular Volume 89.7 fL (81-99); Mean Platelet Volume 8.5 fL (7.4-10.4); Monocytes # 0.5 10^3/uL (0.2-0.9); Neutrophils # 4.22 10^3/uL (1.8-7.7); Neutrophils % 57.3 %; Nucleated Red Blood Cells % 0 %; Platelet Count 293 10^3/cmm (130-400); Red Blood Count 3.58 10^6/uL (4.1-5.3); Red Cell Distribution Width 14.6 % (12.1-15.1); White Blood Count 7.4 10^3/uL (4.0-10.0)
[2020-12-01 06:07] LABS: Alanine Aminotransferase 14 U/L (0-33); Albumin Level 2.4 g/dL (3.5-5.2); Alkaline Phosphatase 102 IU/L (35-105); Anion Gap 10.7 (5-19); Aspartate Amino Transferase 19 U/L (0-32); Blood Urea Nitrogen 15 mg/dL (6-20); Calcium 7.5 mg/dL (8.5-10.5); Carbon Dioxide 23 mmol/L (22-29); Chloride 108 mmol/L (98-107); Globulin 2.5 g/dL (1.3-4.6); Glomerular Filtration Rate 60.8 mL/min (90-130); Glucose 92 mg/dL (65-115); Osmolality Calculated 286 mOsm/kg (285-295); Potassium 3.7 mmol/L (3.5-5.1); Sodium 138 mmol/L (136-145); Total Bilirubin 0.2 mg/dL (0.15-1.2); Total Protein 4.9 g/dL (6.6-8.7)
[2020-12-01 06:39] LABS: Glucose Point of Care 99 mg/dL (70-110)
[2020-12-01] MEDS: amlodipine 10 mg Tablet PO (08:22)
[2020-12-01] MEDS: acetaminophen 325 mg Tablet 650 MG PO (08:27)
--- NOTE | 2020-12-01 11:01 | P.DS_ITS ---
Discharge Providers Date of Admission: 11/28/20 18:43 Date of Discharge: December 01, 2020 Attending Provider at Admission: Prosper Perry MD Attending Provider at Discharge: Prosper Perry MD Diagnoses at Discharge Discharge Diagnosis (1) DKA (diabetic ketoacidoses): Status: Resolved (2) Leukocytosis: Status: Resolved (3) Status post amputation: Status: Chronic (4) Diabetic gastroparesis: Status: Chronic Permanent problem details: -secondary to DM type I (5) Type 1 diabetes mellitus: Status: Chronic Permanent problem details: -noted hx of DM type I complicated by nephropathy and neuropathy -A1c-7.5 (12/2019) -Accu-Cheks, scheduled and ISS, hypoglycemia precautions Qualifiers: Diabetes mellitus complication status: with other specified complication Qualified Code(s): E10.69 - Type 1 diabetes mellitus with other specified complication (6) Hypertension: Status: Chronic Reason for Visit Reason for Visit: N/V/ABD PAIN Hospital Course Hospital Course Cherrie Solomon is a 40 year old female with PMH DM type I associated with nephropathy, gastroparesis and neuropathy, s/p L BKA, HTN, CAD s/p stenting;was admitted with c/o nausea and vomitting and rt back pain going on for last couple of days.Upon arrival in the ER she was worked up for above mention complain. Pertinent Imaging Studies: CT Abdomen And Pelvis Without Contrast: No acute pathology noted. Xray chest : WNL Pertinent Labs : WBC : 15.5 , H/H : 13/42, PLT : 459, Na: 135, K: 3.4, BUN /SCR : 21/1, A.4 HCO3: 16, RBS: 483, Lactate : 3.8 , Calculated Osmolality : 304, Serum Ketone : Positive. She was admitted for the management of DKA likely 2/2 to medication non compliance as she has not been on her insulin since last April. During the hospital stay she was managed as per DKA protocol and her blood sugar was well controlled.She is being discharged on oral metformin and glipizide and she will follow with PCP as well as endocrine doctor as outpatient.Appointment for both have been made.She was also having itractable nausea,vomitting and abdominal pain likely 2/2 to diabetic gastropresis for which she was kept on reglan and zofran as well on adequate pain medications, opiods were avoided as much as possible and she was encouraged to manage her pain with non opoid medications even in future.At the time of discharge she was tolerating oral diet well,had no nausea and vomiting.For her hypertension she was started on lisinopril 10 mg po daily as her new home medication. She responded well to the above medical management and is being discharged in stable condition. Physical Exam Const: COMMON NORMALS: patient oriented x3 HENMT: COMMON NORMALS: normocephalic and atraumatic HEAD & SCALP: normocephalic and atraumatic Chest: CHEST: Yes Symmetrical chest wall rise Resp: COMMON NORMALS: clear to auscultation bilaterally AUSCULTATION: clear to auscultation bilaterally Cardio: COMMON NORMALS: regular rate, regular rhythm, S1 normal heart sound present, S2 normal heart sound present, No gallops present (Cardio), No murmurs present (Cardio), No rub (Cardio) and Peripheral pulses 2+ throughout RATE: regular rate RHYTHM: regular rhythm HEART SOUNDS: S1 normal heart sound present and S2 normal heart sound present PERIPHERAL PULSES: Peripheral pulses 2+ throughout GI: COMMON NORMALS: Normal to inspection, nondistended, normoactive bowel sounds present, Soft to palpation, non-tender, No hepatosplenomegaly present and no masses AUSCULTATION: Yes normoactive bowel sounds PALPATION: Yes Soft to palpation and Yes No hepatosplenomegaly present RECTAL EXAM: deferred Extremity: COMMON NORMALS: no clubbing, cyanosis or edema and no pedal edema OTHER: S/P Lt BKA , S/P AMPUTATION OF RT FOREFOOT Neuro: COMMON NORMALS: patient oriented x3 Urinary Catheter Management^: Riojas: Cath Placed During This Visit: yes Reason for Continuing Indwelling Catheter: Other Urinary Catheter Date of Insertion: 11/28/20 Urinary Catheter Time of Insertion: 19:55 Discharge Data Data Completed and Pending: Completed Studies During Hospitalization Category Date Time Status CT kidney stone 7 [id number] Urgent Cat Scan 11/28/20 13:55 Completed XR chest 1V angle ble [id number] Urgent Exams 11/28/20 13:55 Completed Pending at discharge Category Date Time Status Blood Culture Sta t Lab 11/28/20 15:14 Results Labs from last 24 hours 12/01/20 12/01/20 12/01/20 06:36 05:15 05:15 WBC 7.4 RBC 3.58 L Hgb 10.1 L Hct 32.1 L MCV 89.7 MCH 28.2 MCHC 31.5 RDW 14.6 Plt Count 293 MPV 8.5 Neut % (Auto) 57.3 Lymph % (Auto) 32.2 [place] % (Auto) 7.0 Eos % (Auto) 2.6 Baso % (Auto) 0.5 Neut # (Auto) 4.22 Lymph # (Auto) 2.4 [place] # (Auto) 0.5 Eos # (Auto) 0.2 Baso # (Auto) 0.0 Nucleated RBC % (a uto) 0 Nucleated RBCs # 0.0 Sodium 138 Potassium 3.7 Chloride 108 H Carbon Dioxide 23 Anion Gap 10.7 BUN 15 Creatinine 1.0 H GFR Calculation 60.8 L Glucose 92 POC Glucose 99 Calculated Osmolal ity 286 Calcium 7.5 L Total Bilirubin 0.2 AST 19 ALT 14 Alkaline Phosphata se 102 Total Protein 4.9 L Albumin 2.4 L Globulin 2.5 11/30/20 11/30/20 11/30/20 20:47 16:47 10:47 WBC RBC Hgb Hct MCV MCH MCHC RDW Plt Count MPV Neut % (Auto) Lymph % (Auto) [place] % (Auto) Eos % (Auto) Baso % (Auto) Neut # (Auto) Lymph # (Auto) [place] # (Auto) Eos # (Auto) Baso # (Auto) Nucleated RBC % (a uto) Nucleated RBCs # Sodium Potassium Chloride Carbon Dioxide Anion Gap BUN Creatinine GFR Calculation Glucose POC Glucose 139 H 98 143 H Calculated Osmolal ity Calcium Total Bilirubin AST ALT Alkaline Phosphata se Total Protein Albumin Globulin Vitals: Last Vital Signs Temp 98.2 F 12/01/20 08:00 Pulse 72 12/01/20 08:00 Resp 18 12/01/20 08:00 BP 157/92 12/01/20 08:00 Pulse Ox 97 12/01/20 08:00 Discharge Plan Discharge Patient Disposition: Home Condition: Stable Prescriptions: New metformin 500 mg tablet 500 mg PO BID Qty: 60 RF: 2 glipizide 5 mg tablet 5 mg PO DAILY Qty: 30 RF: 2 Zofran 4 mg tablet 4 mg PO Q8H PRN (Reason: nausea and vomiting) 5 Days RF: 0 lisinopril 10 mg tablet 10 mg PO DAILY Qty: 30 RF: 2 Discharge Orders: Discharge Order (Routine); Ordered 12/01/20 Ordered By: Prosper Perry Referrals: Brian Thomas MD [Physician] - 12/09/20 8:00 am (You will have a new patient/hospital follow up appointment with Dr. Thomas on December 09, 2020 at 8:00am. If you have any questions or need to reschedule please call them at [phone].) Yudelka High MD [Physician] - 1 month (Please call [facility] Endocrinology and schedule an appointment to see Dr. High.) Discharge Diet: Diabetic Discharge Activity: Resume usual activity Patient Instructions: Type 1 Diabetes, Lisinopril (By mouth), Glipizide (By mouth), Ondansetron (By mouth), Metformin (By mouth), Diabetic Ketoacidosis (GEN), Opioid Safety Discharge Attestations Time Spent in Discharge Care*: less than 30 min Specific Discharge Activities: educating patient, educating and/or supporting family/caregiver, discussing with returned case inspector/social workers/dc planners, documenting/other paperwork and evaluating patient/reviewing data Status at Discharge: Cognitive status at discharge: cognitively intact , Behavioral status at discharge: cooperative , Quality Metrics Clinical Quality Measures During this hospital stay, did patient experience: None 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 Code Acute [facility] DC note Diagnoses DKA (diabetic ketoacidoses) E11.10 Leukocytosis D72.829 Status post amputation Z89.9 Diabetic gastroparesis E11.43; K31.84 Type 1 diabetes mellitus E10.69 Diabetes mellitus complication status: with other specified complication Hypertension I10
[2020-12-01 11:05] LABS: Glucose Point of Care 124 mg/dL (70-110)
--- NOTE | 2020-12-01 12:03 | PC.NURSE ---
Bilateral IV's removed. Applied coban. Patient instructed on follow up appointments and discharge medications. Patient verbalized understanding. Medications to be delivered to bedside by pharmacy. Patient going to have daughter help her with appointments as well as paperwork. Riojas catheter removed. Patient voided in the toilet with no complaints.
== END 2020-12-01 14:06 | disposition home or self-care (01) | DRG 639 ==
LOC: ER 14:15 → ICU 20:57 → MEDSURG 11-29 22:45
PROVIDERS: Admitting Provider Internal Medicine; Emergency Provider Family Medicine; Visit Provider Internal Medicine
DX: E10.10 Type 1 diabetes mellitus with ketoacidosis without coma (principal); E10.22 Type 1 diabetes mellitus with diabetic chronic kidney disease; E10.65 Type 1 diabetes mellitus with hyperglycemia; E10.43 Type 1 diabetes mellitus with diabetic autonomic (poly)neuropathy; E10.40 Type 1 diabetes mellitus with diabetic neuropathy, unspecified; I12.9 Hypertensive chronic kidney disease with stage 1 through stage 4 chronic kidney disease, or unspecified chronic kidney disease; K31.84 Gastroparesis; N18.2 Chronic kidney disease, stage 2 (mild); Z89.512 Acquired absence of left leg below knee; I25.10 Atherosclerotic heart disease of native coronary artery without angina pectoris; Z95.5 Presence of coronary angioplasty implant and graft; E78.5 Hyperlipidemia, unspecified; Z89.431 Acquired absence of right foot; Z87.891 Personal history of nicotine dependence; E87.6 Hypokalemia; T38.3X6A Underdosing of insulin and oral hypoglycemic [antidiabetic] drugs, initial encounter
CPT/HCPCS: 36415; 36416; 36600; 51702; 71045; 74176; 80048; 80053; 80306; 81001; 81025; 82009; 82803; 82962; 83036; 83605; 83690; 83735; 84100; 84145; 84703; 85025; 86140; 87040; 96365; 96366; 96367; 96372; 96375; 99285; J1650; J1815 ×2; J1885; J2405; J2765; J3010; J3480; J3490; J7030; J7050

== ENCOUNTER 2020-12-03 20:39 | Inpatient (IN) | payer MEDICAID, SELFPAY ==
[2020-12-03] VITALS (7 sets, daily range): BP systolic 190–224; BP diastolic 111–132; PULSE 110–124; RESP 16–22; TEMP 36.7–36.9; O2SAT 100; BMI 25.1
--- NOTE | 2020-12-03 20:46 | CTR_ITS ---
PROCEDURE INFORMATION: Exam: CT Abdomen And Pelvis With Contrast Exam date and time: 12/03/2020 8:59 PM Age: 40 years old Clinical indication: Abdominal pain; Localized; Right; Prior surgery; Surgery date: 6+ months; Surgery type: Gb, peg tube; Patient HX: C/O R sided abd pain; Additional info: Abdominal pain rlq/ruq/ right flank pain TECHNIQUE: Imaging protocol: Computed tomography of the abdomen and pelvis with contrast. Radiation optimization: All CT scans at this facility use at least one of these dose optimization techniques: automated exposure control; mA and/or kV adjustment per patient size (includes targeted exams where dose is matched to clinical indication); or iterative reconstruction. Contrast material: VISI 320; Contrast volume: 95 ml; Contrast route: INTRAVENOUS (IV); COMPARISON: CT kidney stone [id number] 11/28/2020 5:30 PM RADIATION DOSE METRICS: Total DLP (mGy-cm): 1892.9 FINDINGS: Lungs: The lung bases are clear. Mediastinal space: Small hiatal hernia. There may be some mucosal/wall thickening involving the lower esophagus. This is nonspecific, but could represent evidence for esophagitis. Please correlate clinically. Liver: The liver appears somewhat enlarged, with right lobe length of 22 cm. No definite/significant focal hepatic abnormality. Gallbladder and bile ducts: Prior cholecystectomy, no significant biliary tree dilation. Pancreas: Unremarkable. Spleen: Unremarkable. Adrenal glands: Unremarkable. Kidneys and ureters: Unremarkable. Stomach and bowel: There are no CT findings to strongly suggest diverticulitis. Appendix: The appendix is visualized and appears normal. Intraperitoneal space: No free air, ascites, or bowel distention. Vasculature: No evidence for abdominal aortic aneurysm. Lymph nodes: No retroperitoneal adenopathy. Urinary bladder: Unremarkable as visualized. Reproductive: The left ovary contains a 17 x 14 mm dominant follicle versus very small cyst. Significance unlikely due to small size. No cul-de-sac fluid. Bones/joints: Mild superior endplate compression of T12, unchanged. Soft tissues: Small umbilical hernia, containing only fat, similar to prior exam. CT/CT abdomen pelvis w con* [id number] IMPRESSION: 1. Normal appendix. 2. No free air or bowel distention. 3. Small hiatal hernia. Possibly some thickening of the lower esophagus, see above discussion. 4. The left ovary contains a 17 x 14 mm dominant follicle versus very small cyst. Significance unlikely due to small size. No cul-de-sac fluid. 5. Other findings discussed above. Radiation Dose CTDIVOL = (mGy): DLP = 1892.9 (mGy-cm)
--- NOTE | 2020-12-03 20:53 | ECG_ITS ---
[facility] Test Date: 2020-12-03 Pat Name: Cherrie Solomon Department: Room: Gender: Female Internal Controls Consultant: : [id number] Requested By: Karan Gracia Order Number: [id number] Jeff MD: Kenna Darling M.D. Measurements Intervals [place] Rate: 105 P: -8 ID: [id number] QRS: -34 QRSD: 105 T: 71 QT: 358 QTc: 475 Interpretive Statements SINUS TACHYCARDIA LEFT AXIS DEVIATION [QRS AXIS < -30] MINIMAL VOLTAGE CRITERIA FOR LVH, CONSIDER NORMAL VARIANT [MEETS CRITERIA IN ONE OF: R(aVL), S(V1), R(V5), R(V5/V6)+S(V1)] Compared to ECG 03/15/2020 08:42:43 Left-axis deviation now present Ventricular premature complex(es) no longer present T-wave abnormality no longer present Possible ischemia no longer present Electronically Signed On 12-04-2020 10:28:29 CDT by Kenna Darling M.D. [id number]
[2020-12-03] MEDS: ondansetron 2 mg/ML SDV 2 mL 4 MG IVP (21:07)
[2020-12-03] MEDS: HYDROmorphone 1 mg/mL INJ 1 mL 0.5 MG IVP (21:09)
[2020-12-03] MEDS: sodium chloride 0.9% 1,000 ML 999 ML IV (21:10)
[2020-12-03 21:34] LABS: Basophils # 0.1 10^3/uL (0.0-0.1); Basophils % 0.4 %; Eosinophils % 0.1 %; HCG, Serum Qual Negative (Negative); Hematocrit 39.7 % (37.0-47.0); Hemoglobin 13.4 g/dL (11.5-15.3); Lymphocytes # 1.8 10^3/uL (0.8-4.8); Lymphocytes % 13.4 %; Mean Corpuscular HGB Conc 33.8 g/dL (30.0-36.0); Mean Corpuscular Hemoglobin 28.2 pg (28.0-34.0); Mean Corpuscular Volume 83.4 fL (81-99); Mean Platelet Volume 8.9 fL (7.4-10.4); Monocytes # 0.7 10^3/uL (0.2-0.9); Monocytes % 4.7 %; Neutrophils # 11.07 10^3/uL (1.8-7.7); Neutrophils % 80.5 %; Nucleated Red Blood Cells % 0 %; Platelet Count 532 10^3/cmm (130-400); Red Blood Count 4.76 10^6/uL (4.1-5.3); Red Cell Distribution Width 14.4 % (12.1-15.1); White Blood Count 13.8 10^3/uL (4.0-10.0)
--- NOTE | 2020-12-03 21:36 | W.ED.ABDPA2 ---
HPI - Abdominal Pain General: Chief Complaint: Abdominal Pain Stated Complaint: ABDOMINAL PAIN/ BACK PAIN Time Seen by Provider: 12/03/20 20:46 History of Present Illness: HPI narrative: The patient is a 40-year-old female with past medical history diabetes with nephropathy, retinopathy, and admitted with multiple times with gastroparesis. She also has a left BKA. She comes to the ER today complaining of periumbilical pain and right lower back pain radiating to her groin since last night. She has been vomiting this evening and EMS reports she felt a 20 ounce cup with vomit that looked like digested food on the ride here. On arrival she is moaning in pain. She says she has a history of renal stones as well however it has been several years since she has had one. MD elicited complaint: abdominal pain and flank pain Onset (ago): hour(s) (24) Associated Symptoms: Reports nausea and vomiting; Denies GI cramping and diarrhea Related Data: Date of Last Menstrual Period: 11/19/20 Review of Systems General: Reports: 10 or more systems reviewed and unremarkable except in HPI and below Const: Reports: fatigue and malaise Eyes: Denies: change in vision, blurry vision or eye redness ENMT: Denies: throat pain, swelling of lips/tongue, ear or mastoid pain or nasal congestion Card: Denies: chest pain, palpitations, irregular heart rhythm, edema, dyspnea on exertion or orthopnea Resp: Denies: dyspnea, productive cough or non-productive cough GI: Reports: abdominal pain, nausea and vomiting; Denies: diarrhea or GI cramping : Reports: flank pain; Denies: difficulty voiding, urinary frequency or urinary urgency Musc: Denies: neck pain, back pain, extremity pain, joint pain, joint redness, limited range of motion or muscle weakness Skin/Breast: Denies: rash, pruritus, erythema, skin pain or skin tenderness Neuro: Denies: headache(s), numbness in extremities, weakness in extremities, sensory changes, difficulty walking, dizziness, confusion or Slurred speech present Psych: Denies: anxiety or depression Endo: Denies: polyuria All/Imm: Denies: urticaria, throat swelling or tongue swelling PFSH ED PFSH: Medical History CKD (chronic kidney disease) stage 2, GFR 60-89 ml/min -secondary to diabetic nephropathy -baseline Cr is around 1.0 Coronary artery disease -hx of CAD s/p stenting Diabetes mellitus type 1 Diabetic gastroparesis -secondary to DM type I DKA (diabetic ketoacidoses) Foot osteomyelitis, right Hyperlipidemia Hypertension Hypokalemia Leukocytosis Type 1 diabetes mellitus -noted hx of DM type I complicated by nephropathy and neuropathy Surgical History Below-knee amputation of left lower extremity H/O exploratory laparotomy x 3 History of amputation of right forefoot Hx of cholecystectomy Previous section x 3 S/P coronary artery stent placement x 1 S/P percutaneous endoscopic gastrostomy (PEG) tube placement Status post amputation Family History Unknown Diabetes extensive, type II Other CHF (congestive heart failure) Social History Smoking and tobacco status: former smoker Quit status (tobacco): has quit using tobacco Former quit date comment: 15 yrs ago Alcohol intake: former Former alcohol use details: 15 yrs ago Household members: spouse Marital status: Sexually active: Yes (1, ) Female Reproductive History: Date of last menstrual period: 11/19/20 Physical Exam Const: COMMON NORMALS: patient oriented x3 and alert GENERAL APPEARANCE: in distress, disheveled and ill appearing ORIENTATION/CONSCIOUSNESS: Yes oriented to person, Yes oriented to place and Yes oriented to time OTHER: Severe pain nauseous and vomiting HENMT: COMMON NORMALS: normocephalic, external ears normal and Normal external nose present HEAD & SCALP: normal to inspection and normocephalic NOSE: Normal external nose present EXTERNAL EAR: Yes external ears normal MOUTH: Normal oral and palatal mucosa present THROAT: posterior oropharynx normal Eye: COMMON NORMALS: Equal, round and reactive pupils present and EOMs intact bilaterally GENERAL EYE: appearance normal, both eyes and all related structures PUPIL: Yes Equal, round and reactive pupils present Neck/C-Spine: COMMON NORMALS: full ROM, no lymphadenopathy, no meningeal signs and no JVD GENERAL: Yes normal visual inspection Lymph: LYMPHATIC: no lymphadenopathy noted Chest: COMMONS NORMALS: normal inspection of the chest and normal palpation of entire chest wall Resp: COMMON NORMALS: normal respiratory effort, No retractions, No use of accessory muscles, clear to auscultation bilaterally and percussion normal EFFORT & INSPECTION: Yes able to speak in complete sentences AUSCULTATION: clear to auscultation bilaterally PERCUSSION: percussion normal Cardio: COMMON NORMALS: no JVD, regular rate, regular rhythm, S1 normal heart sound present, S2 normal heart sound present and Peripheral pulses 2+ throughout RATE: regular rate RHYTHM: regular rhythm HEART SOUNDS: S1 normal heart sound present and S2 normal heart sound present PERIPHERAL PULSES: Peripheral pulses 2+ throughout GI: COMMON NORMALS: Normal to inspection, nondistended, normoactive bowel sounds present, Soft to palpation and no masses INSPECTION: Yes normal to inspection PALPATION: Yes Soft to palpation and Yes Tenderness to palpation present (GI) Details: RLQ and RUQ OTHER: The patient has right upper and lower quadrant pain and right flank pain radiating to the right groin. GI image (female): 1. : BLADDER/KIDNEY EXAM: Yes CVA tenderness on the right Back/Pelvis: COMMON NORMALS: thoracic and lumbar spine normal to inspection, no thoracic nor lumbar tenderness and thoraco-lumbar ROM normal Extremity: COMMON NORMALS: normal to inspection, full ROM, capillary refill normal, no joint enlargement and no pedal edema GENERAL: Yes normal exam except as noted Neuro: COMMON NORMALS: patient oriented x3, CN's II-XII intact bilaterally, moves all extremities, no focal motor deficits, no sensory deficits noted and gait normal SENSORIUM/ORIENTATION: Yes alert, Yes oriented to person, Yes oriented to place and Yes oriented to time MENINGEAL SIGNS: Yes no meningeal signs Skin: COMMON NORMALS: no rashes or lesions noted GENERAL SKIN EXAM: no rashes or lesions noted Course Vital Signs: Vital signs: Vital Signs Temperature 98.6 F 12/04/20 07:56 Pulse Rate 87 12/04/20 07:56 Respiratory Rate 17 12/04/20 07:56 Blood Pressure 124/73 12/04/20 07:56 Pulse Oximetry 99 12/04/20 07:56 MDM - Abdominal Pain MDM Narrative: Medical decision making narrative: The patient is a diabetic who comes to the ER with severe nausea and vomiting. She has a history of gastroparesis and has been admitted multiple times for this in the past. She was given multiple nausea medications without any improvement of her symptoms. She did get some improvement from Dilaudid and Ativan and became more comfortable. Blood pressure was severely elevated on arrival at 209/132 and she was tachycardic at 116. Sinus tach. She was given a liter of fluids and labetalol as well. Discussed with Dr. Gonzalez who accepts for observation. Lab Data: Labs: Lab Results 12/03/20 12/03/20 12/03/20 Range/Units 21:05 21:05 21:05 WBC 13.8 H (4.0-10.0) 10^3/ uL RBC 4.76 (4.1-5.3) 10^6/u L Hgb 13.4 (11.5-15.3) g/dL Hct 39.7 (37.0-47.0) % MCV 83.4 (81-99) fL MCH 28.2 (28.0-34.0) pg MCHC 33.8 (30.0-36.0) g/dL RDW 14.4 (12.1-15.1) % Plt Count 532 H (130-400) 10^3/c mm MPV 8.9 (7.4-10.4) fL Neut % (Auto) 80.5 % Lymph % (Auto) 13.4 % Dougherty % (Auto) 4.7 % Eos % (Auto) 0.1 % Baso % (Auto) 0.4 % Neut # (Auto) 11.07 H (1.8-7.7) 10^3/u L Lymph # (Auto) 1.8 (0.8-4.8) 10^3/u L Dougherty # (Auto) 0.7 (0.2-0.9) 10^3/u L Eos # (Auto) 0.0 (0.0-0.8) 10^3/u L Baso # (Auto) 0.1 (0.0-0.1) 10^3/u L Nucleated RBC % (a uto) 0 % Nucleated RBCs # 0.0 /100WBC Sodium 138 (136-145) mmol/L Potassium 3.9 (3.5-5.1) mmol/L Chloride 99 (98-107) mmol/L Carbon Dioxide 23 (22-29) mmol/L Anion Gap 19.9 H (5-19) BUN 17 (6-20) mg/dL Creatinine 1.2 H (0.5-0.9) mg/dL GFR Calculation 49.3 L (90-130) mL/min Glucose 260 H (65-115) mg/dL Calculated Osmolal ity 297 H (285-295) mOsm/k g Lactate 1.9 (0.5-2.2) mmol/L Calcium 9.1 (8.5-10.5) mg/dL Total Bilirubin 0.4 (0.15-1.2) mg/dL AST 19 (0-32) U/L ALT 22 (0-33) U/L Alkaline Phosphata se 185 H (35-105) IU/L Troponin T Baselin e (0-10) ng/L NT-Pro-B Natriuret Pep 268 H (0-125) pg/mL Total Protein 7.5 (6.6-8.7) g/dL Albumin 4.1 (3.5-5.2) g/dL Globulin 3.4 (1.3-4.6) g/dL Lipase 23 (13-60) U/L HCG, Qual (Negative) 12/03/20 12/03/20 Range/Units 21:05 21:05 WBC (4.0-10.0) 10^3/ uL RBC (4.1-5.3) 10^6/u L Hgb (11.5-15.3) g/dL Hct (37.0-47.0) % MCV (81-99) fL MCH (28.0-34.0) pg MCHC (30.0-36.0) g/dL RDW (12.1-15.1) % Plt Count (130-400) 10^3/c mm MPV (7.4-10.4) fL Neut % (Auto) % Lymph % (Auto) % Dougherty % (Auto) % Eos % (Auto) % Baso % (Auto) % Neut # (Auto) (1.8-7.7) 10^3/u L Lymph # (Auto) (0.8-4.8) 10^3/u L Dougherty # (Auto) (0.2-0.9) 10^3/u L Eos # (Auto) (0.0-0.8) 10^3/u L Baso # (Auto) (0.0-0.1) 10^3/u L Nucleated RBC % (a uto) % Nucleated RBCs # /100WBC Sodium (136-145) mmol/L Potassium (3.5-5.1) mmol/L Chloride (98-107) mmol/L Carbon Dioxide (22-29) mmol/L Anion Gap (5-19) BUN (6-20) mg/dL Creatinine (0.5-0.9) mg/dL GFR Calculation (90-130) mL/min Glucose (65-115) mg/dL Calculated Osmolal ity (285-295) mOsm/k g Lactate (0.5-2.2) mmol/L Calcium (8.5-10.5) mg/dL Total Bilirubin (0.15-1.2) mg/dL AST (0-32) U/L ALT (0-33) U/L Alkaline Phosphata se (35-105) IU/L Troponin T Baselin e 38 H (0-10) ng/L NT-Pro-B Natriuret Pep (0-125) pg/mL Total Protein (6.6-8.7) g/dL Albumin (3.5-5.2) g/dL Globulin (1.3-4.6) g/dL Lipase (13-60) U/L HCG, Qual Negative (Negative) Discharge Plan Discharge Patient Disposition: Placed in Observation Admit Provider: Gracia Gonzalez Clinical Impression: Gastroparesis, Abdominal pain, Hypertension 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 Code ED Food Assembler Kitchen for Chg Fwd Exam Comprehensive
[2020-12-03 21:39] LABS: Lactate (Lactic Acid level) 1.9 mmol/L (0.5-2.2)
[2020-12-03 21:43] LABS: Troponin(5th) Baseline 38 ng/L (0-10)
[2020-12-03] MEDS: metoclopramide 5 mg/mL SDV 2 mL 10 MG IVP (21:50)
[2020-12-03 21:52] LABS: Alanine Aminotransferase 22 U/L (0-33); Albumin Level 4.1 g/dL (3.5-5.2); Alkaline Phosphatase 185 IU/L (35-105); Anion Gap 19.9 (5-19); Aspartate Amino Transferase 19 U/L (0-32); Blood Urea Nitrogen 17 mg/dL (6-20); Calcium 9.1 mg/dL (8.5-10.5); Carbon Dioxide 23 mmol/L (22-29); Chloride 99 mmol/L (98-107); Globulin 3.4 g/dL (1.3-4.6); Glomerular Filtration Rate 49.3 mL/min (90-130); Glucose 260 mg/dL (65-115); Lipase 23 U/L (13-60); NT Pro B Type Natriuretic Pept 268 pg/mL (0-125); Osmolality Calculated 297 mOsm/kg (285-295); Potassium 3.9 mmol/L (3.5-5.1); Sodium 138 mmol/L (136-145); Total Bilirubin 0.4 mg/dL (0.15-1.2); Total Protein 7.5 g/dL (6.6-8.7)
[2020-12-03] MEDS: LORazepam 2 mg/mL INJ 1 mL 0.5 MG IVP (22:17)
[2020-12-03] MEDS: HYDROmorphone 1 mg/mL INJ 1 mL IVP (22:17)
[2020-12-03] MEDS: iodixanol 320 mg/mL 100mL Btl IV (22:39)
[2020-12-03] MEDS: labetalol 5 mg/mL SDV 20mL 10 MG IVP (23:08)
--- NOTE | 2020-12-03 23:08 | PM.HP ---
Providers/Chief Complaint Chief Complaint: ABDOMINAL PAIN/ BACK PAIN History of Present Illness Cherrie Solomon is a 40 year old female who was discharged on 12/01 after management of DKA she has history of type 1 diabetes, multiple complications such as nephropathy gastroparesis neuropathy status post left BKA coronary disease status post stenting, she was complaining of lower back pain and abdominal pain CT abdomen pelvis was unremarkable presenting today with chief plan of worsening abdominal pain and recurrent nausea vomiting. Patient is stating that her insulin was discontinued after her recent discharge from the hospital and she was put on Metformin and glipizide, she has not been able to see registered pharmacy technician yet. Since her discharge she has been having recurrent nausea and vomiting she is not able to keep anything down she is in excruciating lower abdominal pain, no fever she is noticing bilious vomiting. No blood in stool or diarrhea. She decided to come to the hospital because of her worsening of symptoms Diagnostics in the ER revealed tachycardia, CT abdomen pelvis showed left ovarian cyst however no acute abdominal pathologies, she is not in DKA, she is not acidotic, she received Reglan, Ativan and opiates in the ER, labetalol 10 mg was given for hypertensive urgency, she was given 1 L normal saline in the ER along 8 units of short acting insulin Review of Systems Const: Reports: change in appetite; Denies: fever(s) or chills Eyes: Denies: change in vision ENMT: Denies: throat pain Card: Denies: chest pain Resp: Denies: dyspnea GI: Reports: abdominal pain, nausea, vomiting, early satiety and belching : Denies: flank pain Musc: Denies: neck pain Skin/Breast: Denies: rash Neuro: Denies: headache(s) Psych: Denies: anxiety Endo: Denies: polyuria Keith/Lymph: Denies: easy bruising All/Imm: Denies: urticaria Medications/Allergies Home Medications Medication Instructions Recorded Confirmed Last Taken Type glipizide 5 mg PO DAILY #30 tab 12/01/20 Unknown Rx lisinopril 10 mg PO DAILY #30 tab 12/01/20 Unknown Rx metformin 500 mg PO BID #60 tab 12/01/20 Unknown Rx ondansetron HCl [Zofran] 4 mg PO Q8H PRN 5 Days tab 12/01/20 Unknown Rx Allergies Allergy/AdvReac Type Severity Reaction Status Date / Time morphine Allergy ALGY-Difficulty Verified 11/28/20 18:27 Breathing PFSH Acute PFSH: Medical History CKD (chronic kidney disease) stage 2, GFR 60-89 ml/min -secondary to diabetic nephropathy -baseline Cr is around 1.0 Coronary artery disease -hx of CAD s/p stenting Diabetes mellitus type 1 Diabetic gastroparesis -secondary to DM type I DKA (diabetic ketoacidoses) Foot osteomyelitis, right Hyperlipidemia Hypertension Hypokalemia Leukocytosis Type 1 diabetes mellitus -noted hx of DM type I complicated by nephropathy and neuropathy Surgical History Below-knee amputation of left lower extremity H/O exploratory laparotomy x 3 History of amputation of right forefoot Hx of cholecystectomy Previous section x 3 S/P coronary artery stent placement x 1 S/P percutaneous endoscopic gastrostomy (PEG) tube placement Status post amputation Family History Unknown Diabetes extensive, type II Other CHF (congestive heart failure) Social History Smoking and tobacco status: former smoker Quit status (tobacco): has quit using tobacco Former quit date comment: 15 yrs ago Alcohol intake: former Former alcohol use details: 15 yrs ago Household members: spouse Marital status: Sexually active: Yes (1, ) Female Reproductive History: Date of last menstrual period: 11/19/20 Vitals/I&O/Wt Last Vital Signs Temp 98.3 F 12/03/20 21:30 Pulse 124 H 12/03/20 21:30 Resp 17 12/03/20 22:17 BP 224/111 12/03/20 21:30 Pulse Ox 100 12/03/20 21:30 12/03/20 12/03/20 12/04/20 14:59 22:59 06:59 Intake Total 1000 / 1000 Balance 1000 / 1000 Weight last 48 hrs Weight 79.379 kg Physical Exam Narrative: EXAM NARRATIVE: Young female In severe distress, she is twisting and bending because abdominal pain she has bucket in front of her which contains bilious vomitus Her abdomen was examined with female corporate recycling manager her nurse Abdomen is soft, no signs of peritonitis, mild tenderness on deep palpation, no redness or sign of cellulitis, she has pain mostly in hypogastric region right greater than left S1, S2 sinus tachycardia no signs of heart failure Poor dental hygiene, Bilateral breath sounds without adventitious rhonchi or crackles No active signs of stroke no neurological deficits Is awake alert in distress oriented x3 GCS 15 Left BKA Data : 12/03/20 21:05 12/03/20 21:05 Micro: Microbiology 12/03/20 21:50 Blood Culture - Preliminary Blood SPECIMEN COLLECTED 12/03/20 22:06 Blood Culture - Preliminary Blood SPECIMEN COLLECTED A&P Assessment and plan (1) Gastroparesis: Status: Acute (2) Abdominal pain: Status: Acute (3) Hypertension: Status: Acute (4) Intractable nausea and vomiting: Status: Acute Additional A&P Information Intractable nausea vomiting secondary to diabetic gastroparesis She has not been able to take antiemetics because of her symptoms I do believe she might benefit from gastric pacemaker, considering left BKA micro and macrovascular complications diabetic gastroparesis might be difficult to manage with just medications I will keep her on Reglan and Zofran IV Watch for signs of serotonin syndrome because of Reglan use I would also like to add Ativan every 12h which might help with her neuropathic gastroparesis Abdominal pain Patient is complaining of severe hypogastric abdominal pain right greater than left, T abdomen pelvis unremarkable other than left ovarian cyst, no signs of torsion Secondary to gastroparesis She is not in DKA No sign of pancreatitis Type I diabetic I would add insulin her last A1c level 9.4 Hold Metformin and glipizide, adding glipizide might add extra risk of hypoglycemia with the intractable nausea and vomiting I am not sure if glipizide would be beneficial in type I diabetics Full code Consistent carb diet DVT prophylaxis Lovenox Attestations Medical Necessity Statement*: Anticipating discharge in less than 48 hours will need IV fluids because of intractable nausea vomiting, she is at risk of recurrent DKA if she does not get proper IV fluid hydration, she cannot take p.o. meds at home Time Spent in Patient Care: Greater than 35 minutes 40mins 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 Code Acute Pole Shaver Helper for g Fwd Diagnoses Gastroparesis K31.84 Abdominal pain R10.9 Hypertension I10 Intractable nausea and vomiting R11.2
[2020-12-03 23:33] LABS: Amphetamines Screen Urine Negative (Negative); Barbiturates Screen Urine Negative (Negative); Benzodiazepines Screen Urine Negative (Negative); Cocaine Screen Urine Negative (Negative); Opiate Screen Urine Positive (Negative); PCP Screen Urine Negative (Negative); THC Screen Urine Negative (Negative)
[2020-12-03 23:38] LABS: Add Urine Microscopic? YES; Bacteria Urine TRACE /hpf; Bilirubin Urine Neg (Negative); Blood Urine 3+ (Negative); Glucose Urine UA 4+ (Normal); Ketones Urine 1+ (Negative); Leukocyte Esterase Urine Negative (Negative); Mucus Urine TRACE /hpf; Nitrate Urine Negative (Negative); Protein Urine 3+ (Negative); RBC Urine 0-4 /hpf (0-2); Squamous Epithelial Cell Urine 0-4 /hpf (0-5); Sulfosalicylic Acid Urine Positive (Negative); Urine Appearance Clear (CLEAR); Urine Color Yellow (Yellow); Urobilinogen Urine Norm (Negative); WBC Urine 0-4 /hpf (0-5); pH Urine 8 (5-7)
[2020-12-03 23:39] LABS: Add Urine Culture? No; Hyaline Casts Urine 0-4 /lpf
[2020-12-04] VITALS (11 sets, daily range): BP systolic 108–190; BP diastolic 63–98; PULSE 86–116; RESP 16–22; TEMP 36.7–37.1; O2SAT 93–100
[2020-12-04] MEDS: ondansetron 2 mg/ML SDV 2 mL 4 MG IVP ×3 (01:04→19:35)
[2020-12-04] MEDS: HYDROmorphone 1 mg/mL INJ 1 mL 0.4 MG IVP ×2 (01:04→05:58)
[2020-12-04] MEDS: enoxaparin 40 mg/0.4 mL Syringe SUBCUT (01:13)
[2020-12-04] MEDS: sodium chloride 0.9% 1,000 ML 100 ML IV ×2 (01:13→12:08)
[2020-12-04] MEDS: metoclopramide 5 mg/mL SDV 2 mL IVP ×2 (02:41→15:25)
[2020-12-04] MEDS: LORazepam 2 mg/mL INJ 1 mL 0.5 MG IVP ×2 (03:35→14:39)
[2020-12-04] MEDS: promethazine 25 mg/mL SDV 1 mL 50 MG IM (06:15)
[2020-12-04 06:37] LABS: Glucose Point of Care 261 mg/dL (70-110)
[2020-12-04 07:34] LABS: Blood Urea Nitrogen 15 mg/dL (6-20); Calcium 8.3 mg/dL (8.5-10.5); Carbon Dioxide 21 mmol/L (22-29); Chloride 101 mmol/L (98-107); Glomerular Filtration Rate 60.8 mL/min (90-130); Glucose 251 mg/dL (65-115); Magnesium 1.8 mg/dL (1.7-2.3); Osmolality Calculated 295 mOsm/kg (285-295); Sodium 138 mmol/L (136-145)
[2020-12-04 08:11] LABS: Anion Gap 19.7 (5-19); Potassium 3.7 mmol/L (3.5-5.1)
[2020-12-04] MEDS: lisinopril 10 mg Tablet PO (09:10)
[2020-12-04] MEDS: acetaminophen 325 mg Tablet 650 MG PO (10:38)
[2020-12-04 11:03] LABS: Glucose Point of Care 171 mg/dL (70-110)
--- NOTE | 2020-12-04 14:01 | PM.PN ---
Subjective Subjective: Interval history: Overnight H&P reviewed. Patient was seen and examined this morning, she continues to complain of, intractable nausea and vomiting, as well as generalized abdominal pain. Her other vitals and labs have been reviewed. Vitals/I&O/Wt Last Vital Signs Temp 98.6 F 12/04/20 12:06 Pulse 86 12/04/20 12:06 Resp 18 12/04/20 12:06 BP 109/69 12/04/20 12:06 Pulse Ox 98 12/04/20 12:06 12/03/20 12/04/20 12/04/20 22:59 06:59 14:59 Intake Total 1000 / 1000 1120 / 1120 Output Total 1500 / 1500 300 / 300 Balance 1000 / 1000 -1500 / -500 820 / 820 Weight last 48 hrs Weight 79.379 kg Physical Exam Const: COMMON NORMALS: patient oriented x3 HENMT: COMMON NORMALS: normocephalic and atraumatic HEAD & SCALP: normocephalic and atraumatic Chest: CHEST: Yes Symmetrical chest wall rise Resp: COMMON NORMALS: clear to auscultation bilaterally AUSCULTATION: clear to auscultation bilaterally Cardio: COMMON NORMALS: regular rate, regular rhythm, S1 normal heart sound present, S2 normal heart sound present, No gallops present (Cardio), No murmurs present (Cardio), No rub (Cardio) and Peripheral pulses 2+ throughout RATE: regular rate RHYTHM: regular rhythm HEART SOUNDS: S1 normal heart sound present and S2 normal heart sound present PERIPHERAL PULSES: Peripheral pulses 2+ throughout GI: COMMON NORMALS: Normal to inspection, nondistended, normoactive bowel sounds present, Soft to palpation, non-tender, No hepatosplenomegaly present and no masses AUSCULTATION: Yes normoactive bowel sounds PALPATION: Yes Soft to palpation and Yes No hepatosplenomegaly present RECTAL EXAM: deferred Extremity: COMMON NORMALS: no clubbing, cyanosis or edema and no pedal edema OTHER: lt BKA Neuro: COMMON NORMALS: patient oriented x3 Data : 12/03/20 21:05 12/04/20 06:52 Micro: Microbiology 12/03/20 21:50 Blood Culture - Preliminary Blood SPECIMEN COLLECTED 12/03/20 22:06 Blood Culture - Preliminary Blood SPECIMEN COLLECTED A&P Assessment and plan (1) Gastroparesis: Status: Acute (2) Abdominal pain: Status: Acute (3) Hypertension: Status: Acute (4) Intractable nausea and vomiting: Status: Acute Additional A&P Information Intractable nausea vomiting secondary to diabetic gastroparesis She has not been able to take antiemetics because of her symptoms I do believe she might benefit from gastric pacemaker, considering left BKA micro and macrovascular complications diabetic gastroparesis might be difficult to manage with just medications I will keep her on Reglan and Zofran IV Watch for signs of serotonin syndrome because of Reglan use I would also like to add Ativan every 12h which might help with her neuropathic gastroparesis Abdominal pain Patient is complaining of severe hypogastric abdominal pain right greater than left, T abdomen pelvis unremarkable other than left ovarian cyst, no signs of torsion Secondary to gastroparesis She is not in DKA No sign of pancreatitis Type I diabetic I would add insulin her last A1c level 9.4 Hold Metformin and glipizide, adding glipizide might add extra risk of hypoglycemia with the intractable nausea and vomiting I am not sure if glipizide would be beneficial in type I diabetics Full code Consistent carb diet DVT prophylaxis Lovenox Attestations Medical Necessity Statement*: Patient needs to be in hospital for management of intractable nausea vomiting secondary to diabetic gastroparesis. Difficulty with p.o. intake, continued need for IV hydration. 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 Code Acute Automotive Parts Counter Person for Kim Mitchell Diagnoses Gastroparesis K31.84 Abdominal pain R10.9 Hypertension I10 Intractable nausea and vomiting R11.2
[2020-12-04] MEDS: oxyCODONE-APAP 5-325 mg Tablet 1 TAB PO ×2 (14:38→19:35)
[2020-12-04 16:53] LABS: Glucose Point of Care 106 mg/dL (70-110)
[2020-12-04 19:49] LABS: Glucose Point of Care 152 mg/dL (70-110)
[2020-12-05] VITALS (10 sets, daily range): BP systolic 111–165; BP diastolic 63–114; PULSE 71–127; RESP 16–18; TEMP 36.4–37.2; O2SAT 94–99
[2020-12-05] MEDS: enoxaparin 40 mg/0.4 mL Syringe SUBCUT (00:03)
[2020-12-05] MEDS: oxyCODONE-APAP 5-325 mg Tablet 1 TAB PO ×3 (00:29→13:04)
[2020-12-05] MEDS: sodium chloride 0.9% 1,000 ML 100 ML IV ×2 (04:35→18:41)
[2020-12-05 05:51] LABS: Basophils % 0.5 %; Eosinophils # 0.1 10^3/uL (0.0-0.8); Eosinophils % 1.5 %; Hematocrit 32.3 % (37.0-47.0); Hemoglobin 10.5 g/dL (11.5-15.3); Lymphocytes # 3.2 10^3/uL (0.8-4.8); Lymphocytes % 37.3 %; Mean Corpuscular HGB Conc 32.5 g/dL (30.0-36.0); Mean Corpuscular Volume 86.1 fL (81-99); Mean Platelet Volume 8.6 fL (7.4-10.4); Monocytes # 0.6 10^3/uL (0.2-0.9); Monocytes % 7.5 %; Neutrophils % 52.6 %; Nucleated Red Blood Cells % 0 %; Platelet Count 381 10^3/cmm (130-400); Red Blood Count 3.75 10^6/uL (4.1-5.3); Red Cell Distribution Width 14.6 % (12.1-15.1); White Blood Count 8.6 10^3/uL (4.0-10.0)
[2020-12-05 06:17] LABS: Anion Gap 12.1 (5-19); Blood Urea Nitrogen 13 mg/dL (6-20); Calcium 7.8 mg/dL (8.5-10.5); Carbon Dioxide 27 mmol/L (22-29); Chloride 103 mmol/L (98-107); Glomerular Filtration Rate 49.3 mL/min (90-130); Glucose 102 mg/dL (65-115); Osmolality Calculated 288 mOsm/kg (285-295); Potassium 3.1 mmol/L (3.5-5.1); Sodium 139 mmol/L (136-145)
[2020-12-05 06:51] LABS: Glucose Point of Care 109 mg/dL (70-110)
[2020-12-05] MEDS: lisinopril 10 mg Tablet PO (08:59)
[2020-12-05] MEDS: LORazepam 2 mg/mL INJ 1 mL 0.5 MG IVP ×2 (09:20→22:08)
[2020-12-05 11:21] LABS: Glucose Point of Care 147 mg/dL (70-110)
[2020-12-05] MEDS: ondansetron 2 mg/ML SDV 2 mL 4 MG IVP (12:45)
[2020-12-05] MEDS: metoclopramide 5 mg/mL SDV 2 mL IVP (13:38)
[2020-12-05] MEDS: HYDROmorphone 1 mg/mL INJ 1 mL IVP (14:16)
[2020-12-05 16:57] LABS: Glucose Point of Care 108 mg/dL (70-110)
--- NOTE | 2020-12-05 17:36 | P.PN_ITS ---
Subjective Subjective: Interval history: *Multiple episodes of vomiting and abdominal pain continuing. Patient states that today location of her abdominal pain is lower abdomen going in a bandlike fashion to her back. Up until yesterday she reports she was having upper abdominal pain and today appears to be new. Urine output noted to be 500 cc. Bladder scan did not show gross urinary retention. Medications: Reviewed: Yes Vitals/I&O/Wt Last Vital Signs Temp 98.5 F 12/05/20 15:19 Pulse 127 H 12/05/20 15:19 Resp 18 12/05/20 15:19 BP 165/114 12/05/20 15:19 Pulse Ox 94 12/05/20 15:19 12/05/20 12/05/20 12/05/20 06:59 14:59 22:59 Intake Total 880 / 880 Output Total 1000 / 1000 Balance -120 / -120 Weight last 48 hrs Weight 79.379 kg Physical Exam Narrative: EXAM NARRATIVE: GEN: Awake, alert and oriented, in mild distress secondary to pain. CVS: S1S2 N RS: CTA B/L Abd: Soft, nt/nd , bs+ FACILITY TECHNICIAN: no focal neuro deficits Data : 12/05/20 05:41 12/05/20 05:41 Micro: Microbiology 12/03/20 21:50 Blood Culture - Preliminary Blood NEGATIVE TO DATE 12/03/20 22:06 Blood Culture - Preliminary Blood NEGATIVE TO DATE A&P Assessment and plan (1) Gastroparesis: Status: Acute (2) Abdominal pain: Status: Acute (3) Hypertension: Status: Acute (4) Intractable nausea and vomiting: Status: Acute Additional A&P Information Intractable nausea vomiting , likely secondary to diabetic gastroparesis which is still persisting Continue alternating metoclopramide and Zofran as needed. Compazine additionally added today 5 mg p.o. 3 times daily as needed.. Lipase negative, no gross signs of pancreatitis, lactate normal, low suspicion for ischemic bowel, no diarrhea or blood in stools. Complaining today of mostly lower abdominal pain in the pelvic area radiating into the back. Recent CT of the abdomen showed ovarian cyst. Pelvic ultrasound to evaluate for possible torsion. Bladder scan without any signs of urinary retention. Continues to have significant pain, concomitantly tachycardic and hypertensive during pain episodes, optimize pain management by increasing oxycodone to 05/21/2025 every 4 as needed, as needed Dilaudid and Toradol additionally added Continue insulin sliding scale for diabetes, fingersticks currently well cont rolled. Full code Change diet to full liquid from regular DVT prophylaxis Lovenox Attestations Medical Necessity Statement*: Intractable pain nausea vomiting. 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 Code Acute State Archivist for Chg Fwd Diagnoses Gastroparesis K31.84 Abdominal pain R10.9 Hypertension I10 Intractable nausea and vomiting R11.2
--- NOTE | 2020-12-05 18:08 | PC.NURSE ---
In room to give patient IV pain medication. Patient is in the shower. Patient stated that she would call when she is done.
[2020-12-05] MEDS: lidocaine 1% 5 ML in potassium chloride premix 100 ML 25 ML IV (18:34)
[2020-12-05 20:23] LABS: Glucose Point of Care 103 mg/dL (70-110)
[2020-12-06] VITALS: BP 144/89; PULSE 83; RESP 17; TEMP 36.4; O2SAT 96
--- NOTE | 2020-12-06 | US_ITS ---
WS: [id number] ULTRASOUND PELVIS TECHNIQUE: Transabdominal. CLINICAL INFORMATION: evalute for ovarian torsion G 11 P3 LMP: November 19, 2020 : No. COMPARISON: None. FINDINGS: Uterus Orientation: Anteverted. Size: 8.2 cm x 5.2 cm x 5.0 cm Masses: None. Cervix: Incidental nabothian cysts. Endometrium: Normal. Endometrium thickness: 0.7 cm. Adnexa: Simple cyst right ovary measuring 1.0 x 0.6 x 1.1 cm Right ovary size: 2.8 cm x 2.4 cm x 1.7 cm. Right ovary volume: 5.8 ccm3 Left ovary size: 1.3 cm x 1.3 cm x 1.1 cm. Left ovary volume: 0.9 ccm3 Free fluid: None. Other findings: None. US/US pelvic with transvaginal IMPRESSION: 1. Normal uterus. Endometrium measures 6.5 mm. 2. No evidence of ovarian torsion. 3. Incidental nabothian cysts in the cervix. 4. No free fluid in the cul-de-sac.
[2020-12-06] MEDS: enoxaparin 40 mg/0.4 mL Syringe SUBCUT (00:14)
[2020-12-06] MEDS: ketorolac 30 mg/mL INJ 15 MG IVP (02:13)
[2020-12-06 04:00] VITALS: BP 122/68; PULSE 69; RESP 16; TEMP 37.1; O2SAT 94
[2020-12-06] MEDS: sodium chloride 0.9% 1,000 ML 100 ML IV ×2 (05:02→22:05)
[2020-12-06 06:15] LABS: Glucose Point of Care 114 mg/dL (70-110)
[2020-12-06 06:21] LABS: Basophils # 0.1 10^3/uL (0.0-0.1); Basophils % 0.8 %; Eosinophils # 0.1 10^3/uL (0.0-0.8); Eosinophils % 1.6 %; Hematocrit 32.1 % (37.0-47.0); Hemoglobin 10.1 g/dL (11.5-15.3); Lymphocytes # 2.8 10^3/uL (0.8-4.8); Lymphocytes % 37.3 %; Mean Corpuscular HGB Conc 31.5 g/dL (30.0-36.0); Mean Corpuscular Hemoglobin 27.4 pg (28.0-34.0); Mean Platelet Volume 8.8 fL (7.4-10.4); Monocytes # 0.6 10^3/uL (0.2-0.9); Neutrophils # 3.83 10^3/uL (1.8-7.7); Neutrophils % 51.9 %; Nucleated Red Blood Cells % 0 %; Platelet Count 398 10^3/cmm (130-400); Red Blood Count 3.69 10^6/uL (4.1-5.3); Red Cell Distribution Width 14.5 % (12.1-15.1); White Blood Count 7.4 10^3/uL (4.0-10.0)
[2020-12-06 06:41] LABS: Anion Gap 11.3 (5-19); Blood Urea Nitrogen 11 mg/dL (6-20); Calcium 7.9 mg/dL (8.5-10.5); Carbon Dioxide 25 mmol/L (22-29); Chloride 104 mmol/L (98-107); Glomerular Filtration Rate 54.5 mL/min (90-130); Glucose 106 mg/dL (65-115); Osmolality Calculated 284 mOsm/kg (285-295); Potassium 3.3 mmol/L (3.5-5.1); Sodium 137 mmol/L (136-145)
[2020-12-06 08:00] VITALS: BP 128/74; PULSE 68; RESP 17; TEMP 36.9; O2SAT 92
[2020-12-06] MEDS: lisinopril 10 mg Tablet PO (11:06)
[2020-12-06] MEDS: polyethylene glycol 3350 Pkt 17 gm PO (11:06)
[2020-12-06] MEDS: HYDROcodone-acetaminophen 10-325 mg Tablet 1 TAB PO ×2 (11:06→17:00)
[2020-12-06] MEDS: metoclopramide 5 mg/mL SDV 2 mL IVP (11:08)
[2020-12-06] MEDS: LORazepam 2 mg/mL INJ 1 mL 0.5 MG IVP ×2 (11:08→22:56)
[2020-12-06 11:27] LABS: Glucose Point of Care 178 mg/dL (70-110)
[2020-12-06 11:50] VITALS: BP 144/88; PULSE 79; RESP 16; TEMP 36.9; O2SAT 97
[2020-12-06 16:00] VITALS: BP 133/70; PULSE 79; RESP 17; TEMP 37.1; O2SAT 98
[2020-12-06 17:33] LABS: Glucose Point of Care 99 mg/dL (70-110)
--- NOTE | 2020-12-06 17:37 | US_ITS ---
WS: [id number] ULTRASOUND PELVIS TECHNIQUE: Transabdominal. CLINICAL INFORMATION: evalute for ovarian torsion G 11 P3 LMP: November 19, 2020 : No. COMPARISON: None. FINDINGS: Uterus Orientation: Anteverted. Size: 8.2 cm x 5.2 cm x 5.0 cm Masses: None. Cervix: Incidental nabothian cysts. Endometrium: Normal. Endometrium thickness: 0.7 cm. Adnexa: Simple cyst right ovary measuring 1.0 x 0.6 x 1.1 cm Right ovary size: 2.8 cm x 2.4 cm x 1.7 cm. Right ovary volume: 5.8 ccm3 Left ovary size: 1.3 cm x 1.3 cm x 1.1 cm. Left ovary volume: 0.9 ccm3 Free fluid: None. Other findings: None.
--- NOTE | 2020-12-06 18:21 | P.PN_ITS ---
Subjective Subjective: Interval history: Abdominal pain and nausea vomiting are improving today. Reports that she has not had a bowel movement in 1 week. 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 Lipase negative, no gross signs of pancreatitis, lactate normal, low suspicion for ischemic bowel, no diarrhea or blood in stools. Pelvic ultrasound pending to evaluate for possible torsion. Bladder scan w ithout any signs of urinary retention. Miralax for constipation pain better controlled today Continue insulin sliding scale for diabetes, fingersticks currently well controlled. Full code advance diet as tolerated DVT prophylaxis Lovenox Attestations Medical Necessity Statement*: improving clinically today but still with significant nausea, advance diet, planned discharge in upcoming 24 hrs if bob nues to improve 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 Code Acute Power Wheelchair Mechanic for Chg Fwd Diagnoses Gastroparesis K31.84 Abdominal pain R10.9 Hypertension I10 Intractable nausea and vomiting R11.2
[2020-12-06 19:22] VITALS: BP 143/81; PULSE 78; RESP 16; TEMP 36.8; O2SAT 98
[2020-12-06 20:41] LABS: Glucose Point of Care 133 mg/dL (70-110)
[2020-12-07 01:45] VITALS: BP 167/83; PULSE 76; RESP 17; TEMP 36.9; O2SAT 98
[2020-12-07] MEDS: enoxaparin 40 mg/0.4 mL Syringe SUBCUT (02:02)
[2020-12-07 05:34] VITALS: BP 127/60; PULSE 98; TEMP 36.8; O2SAT 97
[2020-12-07 06:19] LABS: Blood Urea Nitrogen 8 mg/dL (6-20); Calcium 7.9 mg/dL (8.5-10.5); Carbon Dioxide 22 mmol/L (22-29); Chloride 106 mmol/L (98-107); Glomerular Filtration Rate 68.7 mL/min (90-130); Glucose 115 mg/dL (65-115); Osmolality Calculated 281 mOsm/kg (285-295); Sodium 136 mmol/L (136-145)
[2020-12-07 06:40] LABS: Glucose Point of Care 120 mg/dL (70-110)
--- NOTE | 2020-12-07 07:38 | PC.NURSE ---
AM NOTE NOTED PT TO BE LEFT BKA - RIGHT FOOT NOTED TO HAVE 2 TOES - PT DENIES NEEDS AT PRESENT TIME - STATES SHE IS FEELING BETTER
[2020-12-07 07:51] VITALS: BP 155/91; PULSE 75; RESP 18; TEMP 37.2; O2SAT 94
[2020-12-07] MEDS: sodium chloride 0.9% 1,000 ML 100 ML IV (08:23)
[2020-12-07] MEDS: lisinopril 10 mg Tablet PO (08:24)
[2020-12-07] MEDS: HYDROcodone-acetaminophen 10-325 mg Tablet 1 TAB PO (08:27)
[2020-12-07 09:35] LABS: Basophils # 0.1 10^3/uL (0.0-0.1); Basophils % 0.7 %; Eosinophils # 0.2 10^3/uL (0.0-0.8); Eosinophils % 2.9 %; Hematocrit 35.8 % (37.0-47.0); Hemoglobin 11.3 g/dL (11.5-15.3); Lymphocytes # 1.8 10^3/uL (0.8-4.8); Lymphocytes % 26.5 %; Mean Corpuscular HGB Conc 31.6 g/dL (30.0-36.0); Mean Corpuscular Hemoglobin 27.6 pg (28.0-34.0); Mean Corpuscular Volume 87.5 fL (81-99); Mean Platelet Volume 8.5 fL (7.4-10.4); Monocytes # 0.5 10^3/uL (0.2-0.9); Monocytes % 6.9 %; Neutrophils # 4.31 10^3/uL (1.8-7.7); Neutrophils % 62.4 %; Nucleated Red Blood Cells % 0 %; Platelet Count 387 10^3/cmm (130-400); Red Blood Count 4.09 10^6/uL (4.1-5.3); Red Cell Distribution Width 14.1 % (12.1-15.1); White Blood Count 6.9 10^3/uL (4.0-10.0)
[2020-12-07 10:45] LABS: Glucose Point of Care 168 mg/dL (70-110)
[2020-12-07] MEDS: polyethylene glycol 3350 Pkt 17 gm PO (11:09)
[2020-12-07 12:00] VITALS: BP 180/92; PULSE 72; RESP 18; O2SAT 97
[2020-12-07 14:06] VITALS: BP 180/92; PULSE 72; RESP 18; O2SAT 97
--- NOTE | 2020-12-07 18:23 | P.DS_ITS ---
Discharge Providers Date of Admission: 12/05/20 17:42 Date of Discharge: December 07, 2020 Attending Provider at Admission: Gracia Gonzalez MD Attending Provider at Discharge: Sonali Emery MD Diagnoses at Discharge Discharge Diagnosis (1) Gastroparesis: Status: Acute (2) Abdominal pain: Status: Acute Qualifiers: Abdominal location: generalized Qualified Code(s): R10.84 - Generalized abdominal pain (3) Hypertension: Status: Acute Qualifiers: Hypertension type: essential hypertension Qualified Code(s): I10 - Essential (primary) hypertension (4) Intractable nausea and vomiting: Status: Acute Reason for Visit Reason for Visit: ABDOMINAL PAIN/ BACK PAIN Hospital Course Hospital Course Cherrie Solomon is a 40 year old female who was discharged on 12/01 after m anagement of DKA she has history of type 1 DM diabetes,currently on 5 units of Lantus and novolog sliding scale, multiple complications such as nephropathy gastroparesis neuropathy status post left BKA coronary disease status post stenting,presented with chief plan of worsening abdominal pain and recurrent nausea vomiting. Since her discharge she has been having recurrent nausea and vomiting she is not able to keep anything down. CT abdomen unremarkable, peklvic USG ruled out ovarian torsion, overall picture consistent with that of diabetic gastroparesis, managed with alternating reglan, zofran and compazine. She was improved at the time of discharge. Glipizide and metformin are listed as part of her home medication list however this is not accurate. Recommend to continue her insulin as she is taking currently. She has f/up appt with her PCP on Saturday. 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: no focal neuro deficits Discharge Data Data Completed and Pending: Completed Studies During Hospitalization Category Date Time Status CT abdomen pelvis w con* [id number] Urge nt Cat Scan 12/03/20 20:46 Completed US pelvic complet e* [id number] Routine Ultrasound 12/06/20 17:37 Completed Pending at discharge Category Date Time Status Blood Culture Sta t Lab 12/03/20 21:50 Results Labs from last 24 hours 12/07/20 12/07/20 12/07/20 10:41 09:23 06:33 WBC 6.9 Corrected WBC RBC 4.09 L Hgb 11.3 L Hct 35.8 L MCV 87.5 MCH 27.6 L MCHC 31.6 RDW 14.1 Plt Count 387 MPV 8.5 Gran % Neut % (Auto) 62.4 Lymph % (Auto) 26.5 Gibson % (Auto) 6.9 Eos % (Auto) 2.9 Baso % (Auto) 0.7 Neut # (Auto) 4.31 Lymph # (Auto) 1.8 Gibson # (Auto) 0.5 Eos # (Auto) 0.2 Baso # (Auto) 0.1 Absolute Gran (aut o) Nucleated RBC % (a uto) 0 Nucleated RBCs # 0.0 Sodium Potassium Chloride Carbon Dioxide Anion Gap BUN Creatinine GFR Calculation Glucose POC Glucose 168 H 120 H Calculated Osmolal ity Calcium 12/07/20 12/07/20 12/06/20 05:09 05:09 20:37 WBC Cancelled Corrected WBC Cancelled RBC Cancelled Hgb Cancelled Hct Cancelled MCV Cancelled MCH Cancelled MCHC Cancelled RDW Cancelled Plt Count Cancelled MPV Cancelled Gran % Cancelled Neut % (Auto) Cancelled Lymph % (Auto) Cancelled Gibson % (Auto) Cancelled Eos % (Auto) Cancelled Baso % (Auto) Cancelled Neut # (Auto) Cancelled Lymph # (Auto) Cancelled Gibson # (Auto) Cancelled Eos # (Auto) Cancelled Baso # (Auto) Cancelled Absolute Gran (aut o) Cancelled Nucleated RBC % (a uto) Cancelled Nucleated RBCs # Cancelled Sodium 136 Potassium 4.0 Chloride 106 Carbon Dioxide 22 Anion Gap 12.0 BUN 8 Creatinine 0.9 GFR Calculation 68.7 L Glucose 115 POC Glucose 133 H Calculated Osmolal ity 281 L Calcium 7.9 L Vitals: Last Vital Signs Temp 98.9 F 12/07/20 07:51 Pulse 72 12/07/20 14:06 Resp 18 12/07/20 14:06 BP 180/92 12/07/20 14:06 Pulse Ox 97 12/07/20 14:06 Discharge Plan Discharge Patient Disposition: Home Condition: Stable Prescriptions: New hydrocodone-acetaminophen 10-325 mg Tablet 1 tab PO Q8H PRN (Reason: Moderate Pain) 5 Days Qty: 15 RF: 0 Zofran 4 mg tablet 4 mg PO Q8H PRN (Reason: nausea and vomiting) 5 Days Qty: 14 RF: 0 Continued glipizide 5 mg tablet 5 mg PO DAILY Qty: 30 RF: 2 lisinopril 10 mg tablet 10 mg PO DAILY Qty: 30 RF: 2 Discontinued metformin 500 mg tablet 500 mg PO BID Qty: 60 RF: 2 ondansetron HCl [Zofran] 4 mg tablet 4 mg PO Q8H PRN (Reason: nausea and vomiting) 5 Days RF: 0 Discharge Orders: Discharge Order (Routine); Ordered 12/07/20 Ordered By: Sonali Emery Referrals: Avtar Salcedo MD [Referring] - 12/09/20 10:00 am (bring copy taxes 2020 please to appointment ) Patient Instructions: Hydrocodone/Acetaminophen (By mouth), Ondansetron (By mouth), Acute Nausea and Vomiting (GEN), Opioid Safety Activity Restrictions/Additional Instructions: continue insulin lantus 5U and novolog sliding scale as prescribed. Discharge Attestations Time Spent in Discharge Care*: less than 30 min Status at Discharge: Cognitive status at discharge: cognitively intact , Behavioral status at discharge: cooperative , Quality Metrics Clinical Quality Measures During this hospital stay, did patient experience: None 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 Code Acute Chg FW DC note Diagnoses Gastroparesis K31.84 Abdominal pain R10.84 Abdominal location: generalized Hypertension I10 Hypertension type: essential hypertension Intractable nausea and vomiting R11.2
== END 2020-12-07 14:08 | disposition home or self-care (01) | DRG 74 ==
LOC: ER 23:21 → MEDSURG 23:31
PROVIDERS: Internal Medicine; Admitting Provider Internal Medicine; Emergency Provider Family Medicine; Visit Provider Student in an Organized Health Care Education/Training Program
DX: E10.43 Type 1 diabetes mellitus with diabetic autonomic (poly)neuropathy (principal); E10.65 Type 1 diabetes mellitus with hyperglycemia; K31.84 Gastroparesis; N83.202 Unspecified ovarian cyst, left side; E10.22 Type 1 diabetes mellitus with diabetic chronic kidney disease; E10.40 Type 1 diabetes mellitus with diabetic neuropathy, unspecified; I12.9 Hypertensive chronic kidney disease with stage 1 through stage 4 chronic kidney disease, or unspecified chronic kidney disease; N18.2 Chronic kidney disease, stage 2 (mild); Z89.512 Acquired absence of left leg below knee; I25.10 Atherosclerotic heart disease of native coronary artery without angina pectoris; Z95.5 Presence of coronary angioplasty implant and graft; E78.5 Hyperlipidemia, unspecified; Z89.431 Acquired absence of right foot; Z87.891 Personal history of nicotine dependence; K59.00 Constipation, unspecified
CPT/HCPCS: 36415; 36416; 74177; 76830; 76856; 80048; 80053; 80306; 81001; 82962; 83605; 83690; 83735; 83880; 84484; 84703; 85025; 87040; 93005; 96361; 96372; 96374; 96375; 96376; 99285; G0378; J1170; J1650; J1815; J1885; J2060; J2405; J2550; J2765; J3480; J3490; J7030; Q9967

== ENCOUNTER 2020-12-08 19:25 | Emergency (ER) | payer MEDICAID, SELFPAY ==
[2020-12-08 19:28] VITALS: BP 207/131; PULSE 115; RESP 18; TEMP 36.6; O2SAT 100; BMI 25.1
[2020-12-08 19:34] VITALS: BP 207/131; PULSE 119; RESP 16; O2SAT 100
--- NOTE | 2020-12-08 19:37 | ED_ITS ---
HPI - Abdominal Pain General: Chief Complaint: Abdominal Pain Stated Complaint: ABD PAIN Time Seen by Provider: 12/08/20 19:33 History of Present Illness: HPI narrative: Patient is a 40-year-old female comes to the ED with abdominal pain nausea and vomiting. Patient says symptoms started today. Past surgical history of cholecystectomy. Patient was recently hospitalized for gastroparesis with intractable nausea and vomiting on December 03 and discharged home on December 07. Patient says she was feeling better at discharge but today her symptoms started again. The abdominal pain is in the right upper and lower quadrant of the abdomen and she says the pain radiates to her back. She rates her pain a 9 out of 10. She has been having nausea and vomiting as well since onset of symptoms today. Denies any diarrhea, dysuria or hematuria. Patient says she has been checking her blood sugars and before she came to the ED she had a blood sugar of 122. Associated Symptoms: Reports nausea and vomiting; Denies chills, constipation, diarrhea, dysuria, fever(s), hematochezia and hematuria Related Data: Date of Last Menstrual Period: 11/17/20 Review of Systems Const: Denies: fever(s), chills or fatigue Eyes: Denies: change in vision or eye discomfort ENMT: Denies: throat pain, odynophagia, nasal discharge or nasal congestion Card: Denies: chest pain, palpitations, edema, swelling of feet/ankles, dyspnea on exertion or orthopnea Resp: Denies: dyspnea, productive cough or non-productive cough GI: Reports: abdominal pain, nausea and vomiting; Denies: diarrhea, constipation or hematochezia : Denies: flank pain, dysuria or hematuria Musc: Denies: neck pain, back pain or extremity swelling Skin/Breast: Denies: rash or new lesions Neuro: Denies: headache(s), numbness in extremities or weakness in extremities PFS ED PFSH: Medical History CKD (chronic kidney disease) stage 2, GFR 60-89 ml/min -secondary to diabetic nephropathy -baseline Cr is around 1.0 Coronary artery disease -hx of CAD s/p stenting Diabetes mellitus type 1 Diabetic gastroparesis -secondary to DM type I DKA (diabetic ketoacidoses) Foot osteomyelitis, right Hyperlipidemia Hypertension Hypokalemia Leukocytosis Type 1 diabetes mellitus -noted hx of DM type I complicated by nephropathy and neuropathy Surgical History Below-knee amputation of left lower extremity H/O exploratory laparotomy x 3 History of amputation of right forefoot Hx of cholecystectomy Previous section x 3 S/P coronary artery stent placement x 1 S/P percutaneous endoscopic gastrostomy (PEG) tube placement Status post amputation Family History Unknown Diabetes extensive, type II Other CHF (congestive heart failure) Social History Smoking and tobacco status: former smoker Quit status (tobacco): has quit using tobacco Former quit date comment: 15 yrs ago Alcohol intake: former Former alcohol use details: 15 yrs ago Household members: spouse Marital status: Sexually active: Yes (1, ) Female Reproductive History: Date of last menstrual period: 11/17/20 Physical Exam Narrative: EXAM NARRATIVE: Patient is a 40-year-old female that is crying and constantly moving on the exam bed and appears to be in some pain. She had an episode of emesis while I was in the room performing my physical exam. Const: COMMON NORMALS: patient oriented x3 and alert GENERAL APPEARANCE: cooperative and in distress (Patient is crying due to pain.) HENMT: COMMON NORMALS: normocephalic HEAD & SCALP: normocephalic MOUTH: Normal oral and palatal mucosa present THROAT: posterior oropharynx normal and uvula midline Neck/C-Spine: COMMON NORMALS: supple GENERAL: Yes normal visual inspection Resp: COMMON NORMALS: normal respiratory effort, No retractions, No use of accessory muscles and clear to auscultation bilaterally AUSCULTATION: clear to auscultation bilaterally Cardio: COMMON NORMALS: regular rate, regular rhythm, S1 normal heart sound present, S2 normal heart sound present, No gallops present (Cardio), No clicks present (Cardio), No murmurs present (Cardio) and Peripheral pulses 2+ throughout RATE: regular rate RHYTHM: regular rhythm HEART SOUNDS: S1 normal heart sound present and S2 normal heart sound present PERIPHERAL PULSES: Peripheral pulses 2+ throughout GI: COMMON NORMALS: Normal to inspection, nondistended, normoactive bowel sounds present, Soft to palpation and no masses PALPATION: Yes Soft to palpation : COMMON NORMALS: Yes no CVA tenderness BLADDER/KIDNEY EXAM: Yes no CVA tenderness Back/Pelvis: COMMON NORMALS: no CVA tenderness Extremity: COMMON NORMALS: normal to inspection Neuro: COMMON NORMALS: patient oriented x3 SENSORIUM/ORIENTATION: Yes alert GAIT: Yes Normal gait present Skin: GENERAL SKIN EXAM: dry skin Course Reevaluation(s): Reevaluation #1: After patient received a dose of Haldol her nausea and vomiting did improve. Time: 01:12 Vital Signs: Vital signs: Vital Signs Temperature 97.9 F 12/08/20 19:28 Pulse Rate 113 H 12/09/20 02:14 Respiratory Rate 22 H 12/09/20 02:14 Blood Pressure 178/96 12/08/20 23:38 Pulse Oximetry 97 12/09/20 02:14 MDM - Abdominal Pain MDM Narrative: Medical decision making narrative: Patient is a 40-year-old female comes to the ED with nausea vomiting abdominal pain. Patient has known chronic abdominal pain has been seen here in the ED multiple times for same complaint. Patient was just released from hospital yesterday on December 07 for same complaint. Patient was given IV fluids and multiple meds to help her nausea and her nausea and vomiting finally improved after Haldol. Patient was discharged home with a prescription for Phenergan for nausea and ibuprofen 800 mg for pain. She was told to follow-up with her PCP in 7 to 10 days for reevaluation. Return to ED precautions given. Patient understood and agree with plan. Lab Data: Attestation: I reviewed the patient's lab results. Labs: Lab Results 12/08/20 12/08/20 Range/Units 20:48 20:48 WBC 11.7 H (4.0-10.0) 10^3/ uL RBC 4.76 (4.1-5.3) 10^6/u L Hgb 13.1 (11.5-15.3) g/dL Hct 42.0 (37.0-47.0) % MCV 88.2 (81-99) fL MCH 27.5 L (28.0-34.0) pg MCHC 31.2 (30.0-36.0) g/dL RDW 14.0 (12.1-15.1) % Plt Count 544 H (130-400) 10^3/c mm MPV 8.5 (7.4-10.4) fL Neut % (Auto) 75.0 % Lymph % (Auto) 18.2 % Thomas % (Auto) 5.3 % Eos % (Auto) 0.4 % Baso % (Auto) 0.6 % Neut # (Auto) 8.79 H (1.8-7.7) 10^3/u L Lymph # (Auto) 2.1 (0.8-4.8) 10^3/u L Thomas # (Auto) 0.6 (0.2-0.9) 10^3/u L Eos # (Auto) 0.1 (0.0-0.8) 10^3/u L Baso # (Auto) 0.1 (0.0-0.1) 10^3/u L Nucleated RBC % (a uto) 0 % Nucleated RBCs # 0.0 /100WBC Sodium 136 (136-145) mmol/L Potassium 4.1 (3.5-5.1) mmol/L Chloride 104 (98-107) mmol/L Carbon Dioxide 19 L (22-29) mmol/L Anion Gap 17.1 (5-19) BUN 9 (6-20) mg/dL Creatinine 1.1 H (0.5-0.9) mg/dL GFR Calculation 54.5 L (90-130) mL/min Glucose 165 H (65-115) mg/dL Calculated Osmolal ity 284 L (285-295) mOsm/k g Calcium 8.6 (8.5-10.5) mg/dL Total Bilirubin 0.4 (0.15-1.2) mg/dL AST 17 (0-32) U/L ALT 14 (0-33) U/L Alkaline Phosphata se 127 H (35-105) IU/L Total Protein 7.0 (6.6-8.7) g/dL Albumin 3.4 L (3.5-5.2) g/dL Globulin 3.6 (1.3-4.6) g/dL Lipase 23 (13-60) U/L Discharge Plan Discharge Patient Disposition: Home Clinical Impression: Cyclical vomiting with nausea Condition: Stable Prescriptions: New promethazine 25 mg tablet 25 mg PO Q6H PRN (Reason: nausea and vomiting) Qty: 30 RF: 0 ibuprofen 800 mg tablet 800 mg PO Q8H PRN (Reason: pain) Qty: 30 RF: 0 No Action lisinopril 10 mg tablet 10 mg PO DAILY Qty: 30 RF: 2 hydrocodone-acetaminophen 10-325 mg Tablet 1 tab PO Q8H PRN (Reason: Moderate Pain) 5 Days Qty: 15 RF: 0 ondansetron HCl [Zofran] 4 mg tablet 4 mg PO Q8H PRN (Reason: nausea and vomiting) 5 Days Qty: 14 RF: 0 ibuprofen 200 mg Tablet 2,000 mg PO PRN RF: 0 glipizide 5 mg tablet 5 mg PO DAILY RF: 0 Discharge Orders: Discharge ED (Routine); Ordered 12/09/20 Ordered By: Roger Salas Discharge Diet: Advance as tolerated and Clear Liquid Discharge Activity: Increase activity as tolerated Patient Instructions: Acute Nausea and Vomiting (ED) Activity Restrictions/Additional Instructions: Follow-up with medical provider as directed in 7 to 10 days for reevaluation. Take medications as prescribed. Make sure to drink plenty of fluids and stay hydrated. Return to the ER or your medical provider if condition worsens. Please read and understand discharge instructions. If any questions, please ask. 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 Code ED Sludge Filtration Attendant for Kim Fwmaddie Exam Comprehensive
[2020-12-08] MEDS: metoclopramide 5 mg/mL SDV 2 mL 10 MG IVP (20:00)
[2020-12-08] MEDS: HYDROmorphone 1 mg/mL INJ 1 mL 0.5 MG IVP (20:00)
[2020-12-08] MEDS: sodium chloride 0.9% 1,000 ML 999 ML IV (20:00)
[2020-12-08] MEDS: LORazepam 2 mg/mL INJ 1 mL IVP (20:37)
--- NOTE | 2020-12-08 20:45 | PC.PHAR ---
PT STATES SHE TAKES CARE OF HER OWN MEDICATIONS-PT STATES SHE IS NOT TAKING HER GLIPIZIDE UNTIL SHE TALKS TO HER DR-PT STATES SHE HASNT PICKED UP HER [facility] OR ZOFRAN RX WRITTEN IN 12/07/20-PT STATES SHE TOOK 10 TABS OF IBUPROFEN AT ONCE THIS AM BUT STATES SHE THREW THEM BACK UP
[2020-12-08 20:54] LABS: Basophils # 0.1 10^3/uL (0.0-0.1); Basophils % 0.6 %; Eosinophils # 0.1 10^3/uL (0.0-0.8); Eosinophils % 0.4 %; Hemoglobin 13.1 g/dL (11.5-15.3); Lymphocytes # 2.1 10^3/uL (0.8-4.8); Lymphocytes % 18.2 %; Mean Corpuscular HGB Conc 31.2 g/dL (30.0-36.0); Mean Corpuscular Hemoglobin 27.5 pg (28.0-34.0); Mean Corpuscular Volume 88.2 fL (81-99); Mean Platelet Volume 8.5 fL (7.4-10.4); Monocytes # 0.6 10^3/uL (0.2-0.9); Monocytes % 5.3 %; Neutrophils # 8.79 10^3/uL (1.8-7.7); Nucleated Red Blood Cells % 0 %; Platelet Count 544 10^3/cmm (130-400); Red Blood Count 4.76 10^6/uL (4.1-5.3); White Blood Count 11.7 10^3/uL (4.0-10.0)
[2020-12-08 21:08] LABS: Alanine Aminotransferase 14 U/L (0-33); Albumin Level 3.4 g/dL (3.5-5.2); Alkaline Phosphatase 127 IU/L (35-105); Blood Urea Nitrogen 9 mg/dL (6-20); Calcium 8.6 mg/dL (8.5-10.5); Carbon Dioxide 19 mmol/L (22-29); Chloride 104 mmol/L (98-107); Globulin 3.6 g/dL (1.3-4.6); Glomerular Filtration Rate 54.5 mL/min (90-130); Glucose 165 mg/dL (65-115); Lipase 23 U/L (13-60); Osmolality Calculated 284 mOsm/kg (285-295); Sodium 136 mmol/L (136-145); Total Bilirubin 0.4 mg/dL (0.15-1.2)
[2020-12-08 21:17] VITALS: BP 178/121; PULSE 117; RESP 17; O2SAT 96
[2020-12-08 21:17] LABS: Aspartate Amino Transferase 17 U/L (0-32)
[2020-12-08] MEDS: HYDROmorphone 1 mg/mL INJ 1 mL IVP (21:19)
[2020-12-08 21:25] LABS: Anion Gap 17.1 (5-19); Potassium 4.1 mmol/L (3.5-5.1)
[2020-12-08] MEDS: diphenhydrAMINE 50 mg/mL SDV 1mL IVP (21:44)
[2020-12-08 22:51] VITALS: PULSE 109; RESP 20; O2SAT 100
[2020-12-08] MEDS: ondansetron 2 mg/ML SDV 2 mL 4 MG IVP (23:10)
[2020-12-08 23:38] VITALS: BP 178/96; PULSE 119; RESP 19; O2SAT 99
[2020-12-09] MEDS: haloperidol inj 5 mg/mL INJ 1 mL IVP (00:21)
[2020-12-09 01:29] VITALS: PULSE 118; RESP 16; O2SAT 97
[2020-12-09] MEDS: metoclopramide 5 mg/mL SDV 2 mL 10 MG IVP (01:29)
[2020-12-09 02:14] VITALS: PULSE 113; RESP 22; O2SAT 97
--- NOTE | 2020-12-09 02:15 | PC.NURSE ---
patient informed of being discharged; patient upset that she isn't being admitted; patient voiced unable to get a ride here at this time of night and again voiced frustration as to not being admitted.
[2020-12-09 04:20] VITALS: PULSE 117; RESP 17; O2SAT 99
[2020-12-09 05:39] VITALS: PULSE 117; RESP 20; O2SAT 97
[2020-12-09 06:35] VITALS: PULSE 113; RESP 22; O2SAT 97
--- NOTE | 2020-12-09 06:35 | PC.NURSE ---
patient has been sleeping since trying to discharge her; no acute distress; no further evidence of vomiting.
== END 2020-12-09 07:37 | disposition home or self-care (01) ==
PROVIDERS: Emergency Provider Physician Assistant
DX: R11.15 Cyclical vomiting syndrome unrelated to migraine (principal); Z79.84 Long term (current) use of oral hypoglycemic drugs; E10.22 Type 1 diabetes mellitus with diabetic chronic kidney disease; I12.9 Hypertensive chronic kidney disease with stage 1 through stage 4 chronic kidney disease, or unspecified chronic kidney disease; N18.2 Chronic kidney disease, stage 2 (mild); I25.10 Atherosclerotic heart disease of native coronary artery without angina pectoris; E78.5 Hyperlipidemia, unspecified; Z89.512 Acquired absence of left leg below knee; Z89.431 Acquired absence of right foot; Z87.891 Personal history of nicotine dependence
CPT/HCPCS: 36415; 80053; 83690; 85025; 96361; 96374; 96375; 96376; 99284; J1170; J1200; J1630; J2060; J2405; J2765; J7030

== ENCOUNTER 2020-12-13 08:47 | Emergency (ER) | payer MEDICAID, SELFPAY ==
[2020-12-13] VITALS (10 sets, daily range): BP systolic 134–176; BP diastolic 78–106; PULSE 74–95; RESP 16–20; TEMP 36.3–36.7; O2SAT 98–100; BMI 28.7
--- NOTE | 2020-12-13 08:56 | CT_ITS ---
WS: [id number] CT ABDOMEN AND PELVIS WITH CONTRAST HISTORY: Abdominal pain with vaginal bleeding for 2 and after 3 weeks. TECHNIQUE: Imaging performed of the abdomen and pelvis with IV contrast. Single phase imaging of the abdomen. Coronal and sagittal reformats are submitted. All CT scans at [facility] use at least one of these dose optimization techniques: automated exposure control; mA and/or kV adjustment per patient size (includes targeted exams where dose is matched to clinical indication); or iterativ e reconstruction. IV CONTRAST: Omnipaque 300; 95 mL IV. Oral contrast: No DLP: 1875.21 mGy.cm COMPARISON: 12/03/2020 Lower thorax: Lung bases are clear. Heart is normal size. Size hiatal hernia. Liver/biliary system: Normal size with no intrahepatic dilatation. Gallbladder: Status post cholecystectomy. Pancreas: Normal size pancreas and pancreatic duct. No adjacent inflammation. Spleen: Normal size spleen. No mass or infarct. Adrenal glands: Normal. Right kidney: Normal. Left kidney: Normal. Aorta: Mild atherosclerosis with no aneurysm. Lymphadenopathy: None. Free fluid: None. GI tract: The appendix is normal. No obstruction or inflammatory process Abdominal wall: Diastases of the abdominal wall musculature. There is a focal hernia in the ventral a bdominal wall, supraumbilical containing fat only. Pelvis: Normally distended urinary bladder. Uterus is normal size and anteverted. No adnexal mass or fluid. Bones: No acute fractures. No osseous destruction. CT/CT abdomen pelvis w con* [id number] IMPRESSION: 1. No acute abdominal or pelvic abnormalities are identified. 2. Normal appendix. 3. No renal obstruction. 4. Prior cholecystectomy. 5. Moderate size hiatal hernia.
--- NOTE | 2020-12-13 08:56 | US_ITS ---
WS: [id number] TRANSABDOMINAL PELVIC AND TRANSVAGINAL PELVIC ULTRASOUND HISTORY: pelvis pain COMPARISON: 12/06/2020 Uterus: 6.9 cm x 4.8 cm x 3.6 cm. Normal size anteverted uterus. Mild heterogeneity within the myomet rium. Small nabothian cysts. Endometrium: 0.4 cm. Endometrium is poorly visualized. There is mild heterogeneity but no mass. There is some mobile fluid like the endocervical junction. Right ovary: 2.3 cm x 2.1 cm x 1.0 cm. Normal size ovary with a small follicle. Follicle measures 1.0 x 0.6 x 1.0 cm. Flow was identified within the ovary. Left ovary: 2.2 cm x 1.4 cm x 1.9 cm. Small ovary. Flow is identified within the ovary. No free fluid. US/US pelvic with transvaginal IMPRESSION: 1. Both ovaries are identified and not enlarged. Normal Doppler flow was evide nt. 2. There is no free fluid. 3. Mild heterogeneity along the endocervical region with a mobile debris may b e retained products of menses. 4. Poor visualization of the myometrium and the entire endometrium.
--- NOTE | 2020-12-13 09:00 | W.ED.FEMALGU ---
HPI - Female Genitourinary General: Chief complaint: Vaginal Bleeding Stated complaint: PMS SYMPTOMS, PASSING BLOOD CLOTS Time Seen by Provider: 12/13/20 08:48 History of Present Illness: HPI Narrative: 40-year-old female presents complaining of menometrorrhagia. She has been having bleeding intermittently for the last 2 to 3 weeks some passing some clots as well as a lot of cramping. She was here last week for abdominal pain cramping is an ovarian cyst on ultrasound at that time. She also been to other local hospitals recently per the EMS staff that brought her here. She had a follow-up appoint with her PCP a week ago she was unable to attend that appointment. She has been taking ibuprofen evidently for the discomfort. She has a history of diabetes mellitus with complications to vision peripheral vascular disease as well. MD elicited complaint: vaginal bleeding Onset (ago): week(s) Location of symptoms: pelvis Severity: moderate Quality of pain: cramping Consistency: intermittent Vaginal bleeding: moderate Exacerbating factors: none Relieving factors: none Associated symptoms: Deny abdominal pain or nausea Treatment prior to arrival: none Date of Last Menstrual Period: 12/13/20 Review of Systems Const: Denies: fever(s), chills, body aches, change in appetite, fatigue or malaise ENMT: Denies: throat pain, ear or mastoid pain, nasal discharge or nasal congestion Card: Denies: chest pain, edema, dyspnea on exertion or orthopnea Resp: Denies: dyspnea, productive cough or non-productive cough GI: Denies: abdominal pain, nausea, vomiting, hematemesis, coffee ground emesis, diarrhea, constipation, bloating, hematochezia or melena : Denies: flank pain, difficulty voiding, dysuria, urinary frequency or urinary urgency Skin/Breast: Denies: rash or pruritus PFSH ED PFSH: Medical History CKD (chronic kidney disease) stage 2, GFR 60-89 ml/min -secondary to diabetic nephropathy -baseline Cr is around 1.0 Coronary artery disease -hx of CAD s/p stenting Diabetes mellitus type 1 Diabetic gastroparesis -secondary to DM type I DKA (diabetic ketoacidoses) Foot osteomyelitis, right Hyperlipidemia Hypertension Hypokalemia Leukocytosis Type 1 diabetes mellitus -noted hx of DM type I complicated by nephropathy and neuropathy Surgical History Below-knee amputation of left lower extremity H/O exploratory laparotomy x 3 History of amputation of right forefoot Hx of cholecystectomy Previous section x 3 S/P coronary artery stent placement x 1 S/P percutaneous endoscopic gastrostomy (PEG) tube placement Status post amputation Family History Unknown Diabetes extensive, type II Other CHF (congestive heart failure) Social History Smoking and tobacco status: former smoker Quit status (tobacco): has quit using tobacco Former quit date comment: 15 yrs ago Alcohol intake: former Former alcohol use details: 15 yrs ago Household members: spouse Marital status: Sexually active: Yes (1, ) Female Reproductive History: Date of last menstrual period: 12/13/20 Physical Exam Const: COMMON NORMALS: no acute distress GENERAL APPEARANCE: cooperative and comfortable ORIENTATION/CONSCIOUSNESS: Yes awake, Yes oriented to person, Yes oriented to place and Yes oriented to time HENMT: COMMON NORMALS: normocephalic, atraumatic and hearing grossly normal bilaterally HEAD & SCALP: normocephalic and atraumatic Neck/C-Spine: COMMON NORMALS: no JVD Resp: COMMON NORMALS: normal respiratory effort, No retractions, No use of accessory muscles and clear to auscultation bilaterally AUSCULTATION: clear to auscultation bilaterally Cardio: COMMON NORMALS: no JVD, regular rate, regular rhythm and No murmurs present (Cardio) RATE: regular rate RHYTHM: regular rhythm GI: COMMON NORMALS: Soft to palpation and No hepatosplenomegaly present AUSCULTATION: Yes normoactive bowel sounds PALPATION: Yes Soft to palpation, No Tenderness to palpation present (GI), No Guarding due to palpation present (GI) and Yes No hepatosplenomegaly present Extremity: COMMON NORMALS: normal to inspection, capillary refill normal, no clubbing, cyanosis or edema, no calf tenderness and no pedal edema Neuro: SENSORIUM/ORIENTATION: Yes oriented to person, Yes oriented to place and Yes oriented to time Skin: COMMON NORMALS: no rashes or lesions noted GENERAL SKIN EXAM: no rashes or lesions noted Course Vital Signs: Vital signs: Vital Signs Temperature 98.1 F 12/13/20 12:41 Pulse Rate 78 12/13/20 13:09 Respiratory Rate 18 12/13/20 13:09 Blood Pressure 137/81 12/13/20 13:09 Pulse Oximetry 98 12/13/20 13:09 MDM - Female MDM Narrative: Medical decision making narrative: CT and pelvic ultrasound unremarkable. Recommend patient follow-up with gynecology. We will start her on anti-inflammatories. Lab Data: Labs: Lab Results 12/13/20 12/13/20 12/13/20 Range/Units 09:10 10:58 10:58 WBC 9.7 (4.0-10.0) 10^3/ uL RBC 4.10 (4.1-5.3) 10^6/u L Hgb 11.5 (11.5-15.3) g/dL Hct 36.8 L (37.0-47.0) % MCV 89.8 (81-99) fL MCH 28.0 (28.0-34.0) pg MCHC 31.3 (30.0-36.0) g/dL RDW 13.9 (12.1-15.1) % Plt Count 414 H (130-400) 10^3/c mm MPV 8.5 (7.4-10.4) fL Neut % (Auto) 78.6 % Lymph % (Auto) 14.2 % Pershing % (Auto) 5.7 % Eos % (Auto) 0.7 % Baso % (Auto) 0.4 % Neut # (Auto) 7.65 (1.8-7.7) 10^3/u L Lymph # (Auto) 1.4 (0.8-4.8) 10^3/u L Pershing # (Auto) 0.6 (0.2-0.9) 10^3/u L Eos # (Auto) 0.1 (0.0-0.8) 10^3/u L Baso # (Auto) 0.0 (0.0-0.1) 10^3/u L Nucleated RBC % (a uto) 0 % Nucleated RBCs # 0.0 /100WBC Sodium 132 L (136-145) mmol/L Potassium 3.7 (3.5-5.1) mmol/L Chloride 100 (98-107) mmol/L Carbon Dioxide 21 L (22-29) mmol/L Anion Gap 14.7 (5-19) BUN 11 (6-20) mg/dL Creatinine 0.9 (0.5-0.9) mg/dL GFR Calculation 68.7 L (90-130) mL/min Glucose 169 H (65-115) mg/dL Calculated Osmolal ity 277 L (285-295) mOsm/k g Calcium 8.4 L (8.5-10.5) mg/dL Magnesium 1.7 (1.7-2.3) mg/dL Total Bilirubin 0.3 (0.15-1.2) mg/dL AST 11 (0-32) U/L ALT 13 (0-33) U/L Alkaline Phosphata se 110 H (35-105) IU/L Creatine Kinase 96 (26-192) U/L Total Protein 6.4 L (6.6-8.7) g/dL Albumin 3.4 L (3.5-5.2) g/dL Globulin 3.0 (1.3-4.6) g/dL Lipase 43 (13-60) U/L HCG, Qual (Negative) Urine Color Yellow (Yellow) Urine Appearance Clear (CLEAR) Urine pH 7 (5-7) Ur Specific Gravit y 1.010 (1.005-1.030) Urine Protein 3+ H (Negative) Urine Glucose (UA) 1+ (Normal) Urine Ketones Negative (Negative) Urine Blood Trace H (Negative) Urine Nitrate Negative (Negative) Urine Bilirubin Neg (Negative) Urine Urobilinogen Norm (Negative) mg/dL Ur Leukocyte Estephania ase Negative (Negative) Urine RBC 0-4 H (0-2) /hpf Urine WBC None (0-5) /hpf Ur Squamous Epith Cells 15-25 H (0-5) /hpf Amorphous Sediment Not Reportable Urine Bacteria Trace (NONE) /hpf Urine Mucus 1+ /hpf Serum Ketones (Negative) 12/13/20 12/13/20 Range/Units 10:58 10:58 WBC (4.0-10.0) 10^3/ uL RBC (4.1-5.3) 10^6/u L Hgb (11.5-15.3) g/dL Hct (37.0-47.0) % MCV (81-99) fL MCH (28.0-34.0) pg MCHC (30.0-36.0) g/dL RDW (12.1-15.1) % Plt Count (130-400) 10^3/c mm MPV (7.4-10.4) fL Neut % (Auto) % Lymph % (Auto) % Pershing % (Auto) % Eos % (Auto) % Baso % (Auto) % Neut # (Auto) (1.8-7.7) 10^3/u L Lymph # (Auto) (0.8-4.8) 10^3/u L Pershing # (Auto) (0.2-0.9) 10^3/u L Eos # (Auto) (0.0-0.8) 10^3/u L Baso # (Auto) (0.0-0.1) 10^3/u L Nucleated RBC % (a uto) % Nucleated RBCs # /100WBC Sodium (136-145) mmol/L Potassium (3.5-5.1) mmol/L Chloride (98-107) mmol/L Carbon Dioxide (22-29) mmol/L Anion Gap (5-19) BUN (6-20) mg/dL Creatinine (0.5-0.9) mg/dL GFR Calculation (90-130) mL/min Glucose (65-115) mg/dL Calculated Osmolal ity (285-295) mOsm/k g Calcium (8.5-10.5) mg/dL Magnesium (1.7-2.3) mg/dL Total Bilirubin (0.15-1.2) mg/dL AST (0-32) U/L ALT (0-33) U/L Alkaline Phosphata se (35-105) IU/L Creatine Kinase (26-192) U/L Total Protein (6.6-8.7) g/dL Albumin (3.5-5.2) g/dL Globulin (1.3-4.6) g/dL Lipase (13-60) U/L HCG, Qual Negative (Negative) Urine Color (Yellow) Urine Appearance (CLEAR) Urine pH (5-7) Ur Specific Gravit y (1.005-1.030) Urine Protein (Negative) Urine Glucose (UA) (Normal) Urine Ketones (Negative) Urine Blood (Negative) Urine Nitrate (Negative) Urine Bilirubin (Negative) Urine Urobilinogen (Negative) mg/dL Ur Leukocyte Estephania ase (Negative) Urine RBC (0-2) /hpf Urine WBC (0-5) /hpf Ur Squamous Epith Cells (0-5) /hpf Amorphous Sediment Urine Bacteria (NONE) /hpf Urine Mucus /hpf Serum Ketones Negative (Negative) Discharge Plan Discharge Patient Disposition: Home Clinical Impression: Menometrorrhagia Condition: Stable Prescriptions: New diclofenac sodium 75 mg tablet,delayed release (DR/EC) 75 mg PO Q12H PRN (Reason: pain) Qty: 20 RF: 0 Discontinued ibuprofen 800 mg tablet 800 mg PO Q8H PRN (Reason: pain) Qty: 30 RF: 0 No Action lisinopril 10 mg tablet 10 mg PO DAILY Qty: 30 RF: 2 glipizide 5 mg tablet 5 mg PO DAILY RF: 0 promethazine 25 mg tablet 25 mg PO Q6H PRN (Reason: nausea and vomiting) Qty: 30 RF: 0 metformin 500 mg tablet 500 mg PO BID RF: 0 Humalog Pen 100 unit/mL Insulin Pen See Rx Instructions .ROUTE .COMPLEX RF: 0 Lantus Solostar U-100 Insulin 100 unit/mL (3 mL) Insulin Pen 5 unit SUBCUT BEDTIME PRN (Reason: see pharmacy comments) RF: 0 Discharge Orders: Discharge ED (Routine); Ordered 12/13/20 Ordered By: Adama Ceballos Discharge Diet: Usual diet Discharge Activity: Increase activity as tolerated Patient Instructions: Opioid Safety Activity Restrictions/Additional Instructions: Follow-up with your primary care doctor for further evaluation including possible referral to gynecology 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 Code 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
--- NOTE | 2020-12-13 09:19 | PC.NURSE ---
US at bedside
--- NOTE | 2020-12-13 09:46 | PC.NURSE ---
Pt to CT.
[2020-12-13 09:53] LABS: Add Urine Microscopic? YES; Bilirubin Urine Neg (Negative); Blood Urine Trace (Negative); Glucose Urine UA 1+ (Normal); Ketones Urine Negative (Negative); Leukocyte Esterase Urine Negative (Negative); Nitrate Urine Negative (Negative); Protein Urine 3+ (Negative); Urine Appearance Clear (CLEAR); Urine Color Yellow (Yellow); Urobilinogen Urine Norm (Negative); pH Urine 7 (5-7)
[2020-12-13] MEDS: iohexol 300 mg/mL 100 mL Btl IV (09:53)
[2020-12-13 09:54] LABS: RBC Urine 0-4 /hpf (0-2); Squamous Epithelial Cell Urine 15-25 /hpf (0-5)
[2020-12-13 09:55] LABS: Add Urine Culture? No; Bacteria Urine TRACE /hpf; Mucus Urine 1+ /hpf
--- NOTE | 2020-12-13 10:21 | PC.PHAR ---
pt states she takes care of her own medications-pt states she is not taking the metformin or the glipizide till she talks to her dr-pt states she has old rxs of humalog pen and lantus pen-pt states this is a old rx from apr 2020 from a different hospital-pt states she had some left over and uses prn-pt states she hasnt picked up the rxs from the pharmacy written in 12/09/20 for promethazine 25mg and ibuprofen 800mg
[2020-12-13] MEDS: ketorolac 30 mg/mL INJ 15 MG IVP (10:28)
--- NOTE | 2020-12-13 10:56 | PC.NURSE ---
Lab at bedside to draw blood
[2020-12-13 11:16] LABS: Basophils % 0.4 %; Eosinophils # 0.1 10^3/uL (0.0-0.8); Eosinophils % 0.7 %; Hematocrit 36.8 % (37.0-47.0); Hemoglobin 11.5 g/dL (11.5-15.3); Lymphocytes # 1.4 10^3/uL (0.8-4.8); Lymphocytes % 14.2 %; Mean Corpuscular HGB Conc 31.3 g/dL (30.0-36.0); Mean Corpuscular Volume 89.8 fL (81-99); Mean Platelet Volume 8.5 fL (7.4-10.4); Monocytes # 0.6 10^3/uL (0.2-0.9); Monocytes % 5.7 %; Neutrophils # 7.65 10^3/uL (1.8-7.7); Neutrophils % 78.6 %; Nucleated Red Blood Cells % 0 %; Platelet Count 414 10^3/cmm (130-400); Red Cell Distribution Width 13.9 % (12.1-15.1); White Blood Count 9.7 10^3/uL (4.0-10.0)
[2020-12-13 11:22] LABS: Ketone (Acetest) Serum Negative (Negative)
[2020-12-13 11:24] LABS: HCG, Serum Qual Negative (Negative)
[2020-12-13 11:31] LABS: Alanine Aminotransferase 13 U/L (0-33); Albumin Level 3.4 g/dL (3.5-5.2); Alkaline Phosphatase 110 IU/L (35-105); Anion Gap 14.7 (5-19); Aspartate Amino Transferase 11 U/L (0-32); Blood Urea Nitrogen 11 mg/dL (6-20); Calcium 8.4 mg/dL (8.5-10.5); Carbon Dioxide 21 mmol/L (22-29); Chloride 100 mmol/L (98-107); Creatine Phosphokinase 96 U/L (26-192); Glomerular Filtration Rate 68.7 mL/min (90-130); Glucose 169 mg/dL (65-115); Lipase 43 U/L (13-60); Magnesium 1.7 mg/dL (1.7-2.3); Osmolality Calculated 277 mOsm/kg (285-295); Potassium 3.7 mmol/L (3.5-5.1); Sodium 132 mmol/L (136-145); Total Bilirubin 0.3 mg/dL (0.15-1.2); Total Protein 6.4 g/dL (6.6-8.7)
== END 2020-12-13 13:10 | disposition home or self-care (01) ==
PROVIDERS: Emergency Provider Family Medicine
DX: N92.1 Excessive and frequent menstruation with irregular cycle (principal); Z79.4 Long term (current) use of insulin; I12.9 Hypertensive chronic kidney disease with stage 1 through stage 4 chronic kidney disease, or unspecified chronic kidney disease; E10.22 Type 1 diabetes mellitus with diabetic chronic kidney disease; N18.2 Chronic kidney disease, stage 2 (mild); I25.10 Atherosclerotic heart disease of native coronary artery without angina pectoris; E78.5 Hyperlipidemia, unspecified; Z89.512 Acquired absence of left leg below knee; Z87.891 Personal history of nicotine dependence
CPT/HCPCS: 74177; 76830; 76856; 80053; 81001; 82009; 82550; 83690; 83735; 84703; 85025; 96374; 99283; J1885; Q9967

== ENCOUNTER 2020-12-22 13:43 | Inpatient (IN) | payer MEDICAID, SELFPAY ==
[2020-12-22] VITALS (24 sets, daily range): BP systolic 144–224; BP diastolic 82–150; PULSE 94–110; RESP 15–98; TEMP 36.7–36.8; O2SAT 18–100; BMI 29.5
--- NOTE | 2020-12-22 13:50 | XRR_ITS ---
PROCEDURE INFORMATION: Exam: XR Chest Exam date and time: 12/22/2020 1:53 PM Age: 40 years old Clinical indication: Other: N/v; Other: Back pain; Additional info: N/v; Back pain TECHNIQUE: Imaging protocol: XR of the chest. Views: 1 view. COMPARISON: CR XR chest 1V portable [id number] 11/28/2020 2:05 PM FINDINGS: Lungs: Unremarkable. No consolidation. Pleural spaces: Unremarkable. No pleural effusion. No pneumothorax. Heart/Mediastinum: Unremarkable. No cardiomegaly. Bones/joints: Unremarkable. XR/XR chest 1V portable [id number] IMPRESSION: No acute findings.
--- NOTE | 2020-12-22 13:52 | W.ED.BACK ---
Documented by User: SAMUEL Maurice 12/24/20 07:21 HPI - Back Pain/Injury General: Chief Complaint: Back Pain/Injury Stated Complaint: LOW BACK PAIN Time Seen by Provider: 12/22/20 13:45 Source: patient and EMS Mode of arrival: EMS Limitations: no limitations History of Present Illness: HPI Narrative: Patient is a 40-year-old female who presents to ED today with a complaint of mid to right sided back pain that she states began early this morning. She has not had any known injury or trauma. She states she does have chronic lower back pain but usually does not experience pain in this area. She states she has had nausea and vomiting over the past 3 to 4 days. She does not complain of bloody or coffee-ground emesis. She complains of some lower abdominal pain. She is having normal bowel movements. Patient does have a history of DKA. She states her blood sugars have been running in the 120s. She complains of difficulty with urination she attributes secondary to dehydration from not being able to keep anything down. She does not complain of dysuria or odorous urine. MD elicited complaint: back pain Pertinent past history: prior back pain Severity: moderate Similar Symptoms Previously: No Location: thoracic spine and right flank Radiation: none Exacerbating factors: movement Relieving factors: none Associated symptoms: Reports nausea and vomiting; Deny abdominal pain, chills, dysuria, fatigue, fever(s), hematuria, syncope or urinary urgency Work related injury: No Review of Systems Const: Denies: fever(s), chills, body aches, change in appetite, fatigue or malaise Eyes: Denies: change in vision or blurry vision ENMT: Denies: throat pain or odynophagia Card: Denies: chest pain, palpitations, irregular heart rhythm, edema, lightheadedness, syncope, pre-syncope or orthopnea Resp: Denies: dyspnea, productive cough or chest congestion GI: Reports: nausea and vomiting; Denies: abdominal pain, diarrhea or change in stool character : Reports: flank pain and difficulty voiding; Denies: dysuria, urinary urgency, hematuria, vaginal odor, vaginal bleeding or vaginal discharge Musc: Reports: back pain; Denies: neck pain, extremity pain, extremity swelling, joint pain or joint swelling Skin/Breast: Denies: rash Neuro: Denies: headache(s), dizziness or confusion PFSH ED PFSH: Medical History (Updated 12/24/20 @ 00:01 by ) Back pain CKD (chronic kidney disease) stage 2, GFR 60-89 ml/min -secondary to diabetic nephropathy -baseline Cr is around 1.0 Coronary artery disease -hx of CAD s/p stenting Diabetes mellitus type 1 Diabetic foot ulcer -noted on exam -Podiatry consult by Dr. Sin appreciated -arterial studies ordered, noted elevated inflammatory markers (CRP-8.0,ESR-62, thrombocytosis-resolved) -empiric IV antibiotics (Zosyn); add oral clindamycin for broader spectrum coverage including MRSA -MRI findings highly suspicious for osteomyelitis though limited by lack of contrast; arterial studies showing normal EPIFANIO -wound cx prelim is polymicrobial, gram stain grew rare GPC and GPRs. Wound cx sent from OR pending -blood cx prelim negative -suspicious for osteomyelitis on clinical evaluation; likely chronic -LLE elevation -POD # 2 s/p wound excision and skin flap advancement for primary closure of right plantar forefoot, second toe amputation at PIP right second toe Diabetic gastroparesis -secondary to DM type I Diabetic infection of right foot DKA (diabetic ketoacidoses) Failure of outpatient treatment Foot osteomyelitis, right Gastroparesis Hyperlipidemia Hypertension Hypertension Hypokalemia Intractable nausea and vomiting Leukocytosis Non-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 Osteomyelitis of foot, right, acute Type 1 diabetes mellitus -noted hx of DM type I complicated by nephropathy and neuropathy Surgical History (Updated 12/24/20 @ 00:01 by ) Below-knee amputation of left lower extremity H/O exploratory laparotomy x 3 History of amputation of right forefoot Hx of cholecystectomy Previous section x 3 S/P coronary artery stent placement x 1 S/P percutaneous endoscopic gastrostomy (PEG) tube placement Status post amputation Family History Unknown Diabetes extensive, type II Other CHF (congestive heart failure) Social History Smoking and tobacco status: former smoker Quit status (tobacco): has quit using tobacco Former quit date comment: 15 yrs ago Alcohol intake: former Former alcohol use details: 15 yrs ago Household members: spouse Marital status: Sexually active: Yes (1, ) Female Reproductive History: Date of last menstrual period: 12/13/20 Physical Exam Const: COMMON NORMALS: patient oriented x3, no limitations and alert GENERAL APPEARANCE: cooperative and in distress (appears uncomfortable ) NUTRITIONAL APPEARANCE: obese ORIENTATION/CONSCIOUSNESS: Yes awake, Yes oriented to person, Yes oriented to place and Yes oriented to time HENMT: COMMON NORMALS: normocephalic and atraumatic HEAD & SCALP: normocephalic and atraumatic Resp: COMMON NORMALS: normal respiratory effort and clear to auscultation bilaterally AUSCULTATION: clear to auscultation bilaterally Cardio: COMMON NORMALS: regular rate and regular rhythm RATE: regular rate RHYTHM: regular rhythm GI: COMMON NORMALS: Normal to inspection, nondistended, normoactive bowel sounds present, Soft to palpation, non-tender, No hepatosplenomegaly present and no masses PALPATION: Yes Soft to palpation and Yes No hepatosplenomegaly present : BLADDER/KIDNEY EXAM: Yes CVA tenderness on the right Back/Pelvis: GENERAL BACK: Yes CVA tenderness THORACIC SPINE/UPPER BACK: Yes thoracic spinal tenderness (lower t spine ), Yes paraspinal muscle tenderness Thoracic paraspinal muscle tenderness: right and Yes other soft tissue findings (R CVA tenderness ) LUMBAR SPINE/LOWER BACK: Yes normal to inspection and No lumbar spinal tenderness Extremity: COMMON NORMALS: normal to inspection NARRATIVE EXTREMITY EXAM: L BKA GENERAL: Yes normal exam except as noted Neuro: COMMON NORMALS: patient oriented x3 SENSORIUM/ORIENTATION: Yes alert, Yes oriented to person, Yes oriented to place and Yes oriented to time Skin: COMMON NORMALS: no rashes or lesions noted GENERAL SKIN EXAM: no rashes or lesions noted Course ED course: Patient has refused to attempt UA until now. She was noted to come very hypertensive during her stay. She admittingly has not taken her BP meds today. Will give her her normal dose of lisinopril and a clonidine. She has already been given pain/nausea meds and anxiety meds. Reevaluation(s): Reevaluation #1: I have checked on patient several times now. She gained little relief of her pain after 1mg Dilaudid. She was still actively vomiting following Zofran so IV Reglan was ordered. She had requested something for anxiety so 1mg Ativan was given. She was given Lisinopril/Clonidine for her severe hypertension and she did respond well to these. BP now 140s/90s. She is still tachycardic in the 120s-130s. She is requesting something else for pain and nausea. She looks in significant discomfort. Will go ahead and try some Haldol as this helped last time and will try Fentanyl for pain. Vital Signs: Vital signs: Vital Signs Temperature 98.2 F 12/23/20 12:00 Pulse Rate 81 12/23/20 12:00 Respiratory Rate 12 12/23/20 12:00 Blood Pressure 100/54 12/23/20 12:00 Pulse Oximetry 96 12/23/20 12:00 MDM - Back Pain/Injury MDM Narrative: Medical decision making narrative: Pend CT scan results. Given the liklihood of admission for intractable pain/nausea/vomiting as well as hypertensive emergency and tachycardia I will go ahead and sign patient out to Dr. Gracia as it is the end of my shift. DDx-diabetic gastroparesis, kidney stone (CT will rule this out/in), cyclic vomiting syndrome, opiate withdrawal, and malingering. Lab Data: Labs: Lab Results 12/22/20 12/22/20 12/22/20 Range/Units 14:21 14:56 14:56 WBC 12.9 H (4.0-10.0) 10^3/ uL RBC 4.31 (4.1-5.3) 10^6/u L Hgb 12.1 (11.5-15.3) g/dL Hct 36.4 L (37.0-47.0) % MCV 84.5 (81-99) fL MCH 28.1 (28.0-34.0) pg MCHC 33.2 (30.0-36.0) g/dL RDW 13.5 (12.1-15.1) % Plt Count 410 H (130-400) 10^3/c mm MPV 8.7 (7.4-10.4) fL Neut % (Auto) 79.6 % Lymph % (Auto) 14.2 % [place] % (Auto) 5.3 % Eos % (Auto) 0.2 % Baso % (Auto) 0.3 % Neut # (Auto) 10.28 H (1.8-7.7) 10^3/u L Lymph # (Auto) 1.8 (0.8-4.8) 10^3/u L [place] # (Auto) 0.7 (0.2-0.9) 10^3/u L Eos # (Auto) 0.0 (0.0-0.8) 10^3/u L Baso # (Auto) 0.0 (0.0-0.1) 10^3/u L Nucleated RBC % (a uto) 0 % Nucleated RBCs # 0.0 /100WBC Specimen Type Arterial Sample Site Radial, right ABG pH 7.45 (7.35-7.45) ABG pCO2 30.0 L (35-45) mmHg ABG pO2 103.0 H (80.0-100.0) mmH g ABG HCO3 20.7 L (22-26) mmol/L ABG O2 Saturation 98.5 ABG Base Excess -2.1 L (-2.0-2.0) mmol/ L Steve Test Pos A-a O2 Gradient 1.0 L (5-10) mmHg Hematocrit 45.9 (37-47) % Hgb O2 Saturation 97.8 (95-100) % Carboxyhemoglobin 0.6 (0.4-20.1) %THgb Methemoglobin 0.1 L (0.4-1.5) % Total Hemoglobin 15.0 (12-16) g/dL Sodium 140.0 136 (131-143) mmol/L Potassium 3.8 3.9 (3.5-5.0) mmol/L Glucose 226.0 H 213 H (70-115) mg/dL Ionized Calcium 1.3 (1.1-1.4) mmol/L O2 Delivery Device Room air Pole Peeler ID Gd Chloride 104 (98-107) mmol/L Carbon Dioxide 20 L (22-29) mmol/L Anion Gap 15.9 (5-19) BUN 18 (6-20) mg/dL Creatinine 1.5 H (0.5-0.9) mg/dL GFR Calculation 38.1 L (90-130) mL/min Calculated Osmolal ity 290 (285-295) mOsm/k g Calcium 9.2 (8.5-10.5) mg/dL Total Bilirubin 0.6 (0.15-1.2) mg/dL AST 11 (0-32) U/L ALT 10 (0-33) U/L Alkaline Phosphata se 132 H (35-105) IU/L NT-Pro-B Natriuret Pep (0-125) pg/mL Total Protein 7.3 (6.6-8.7) g/dL Albumin 4.1 (3.5-5.2) g/dL Globulin 3.2 (1.3-4.6) g/dL Lipase 25 (13-60) U/L Vitamin B12 (232-1245) pg/mL Folate (4.8-37.3) ng/mL TSH (0.27-4.20) uIU/ mL Urine Color (Yellow) Urine Appearance (CLEAR) Urine pH (5-7) Ur Specific Gravit y (1.005-1.030) Urine Protein (Negative) Urine Glucose (UA) (Normal) Urine Ketones (Negative) Urine Blood (Negative) Urine Nitrate (Negative) Urine Bilirubin (Negative) Urine Urobilinogen (Negative) mg/dL Ur Leukocyte Estephania ase (Negative) Urine RBC (0-2) /hpf Urine WBC (0-5) /hpf Ur Squamous Epith Cells (0-5) /hpf Amorphous Sediment Urine Bacteria (NONE) /hpf Ur Random Sodium mmol/L Ur Random Potassiu m mmol/L Ur Random Chloride mmol/L Urine Creatinine (28-217) mg/dL Urine Opiates Scre en (Negative) ng/mL Ur Barbiturates Sc reen (Negative) ng/mL Ur Phencyclidine S crn (Negative) ng/mL Ur Amphetamines Sc reen (Negative) ng/mL U Benzodiazepines Scrn (Negative) ng/mL Urine Cocaine Scre en (Negative) ng/mL U Marijuana (THC) Screen (Negative) ng/mL Serum Ketones (Negative) 12/22/20 12/22/20 12/22/20 Range/Units 14:56 14:56 14:56 WBC (4.0-10.0) 10^3/ uL RBC (4.1-5.3) 10^6/u L Hgb (11.5-15.3) g/dL Hct (37.0-47.0) % MCV (81-99) fL MCH (28.0-34.0) pg MCHC (30.0-36.0) g/dL RDW (12.1-15.1) % Plt Count (130-400) 10^3/c mm MPV (7.4-10.4) fL Neut % (Auto) % Lymph % (Auto) % [place] % (Auto) % Eos % (Auto) % Baso % (Auto) % Neut # (Auto) (1.8-7.7) 10^3/u L Lymph # (Auto) (0.8-4.8) 10^3/u L [place] # (Auto) (0.2-0.9) 10^3/u L Eos # (Auto) (0.0-0.8) 10^3/u L Baso # (Auto) (0.0-0.1) 10^3/u L Nucleated RBC % (a uto) % Nucleated RBCs # /100WBC Specimen Type Sample Site ABG pH (7.35-7.45) ABG pCO2 (35-45) mmHg ABG pO2 (80.0-100.0) mmH g ABG HCO3 (22-26) mmol/L ABG O2 Saturation ABG Base Excess (-2.0-2.0) mmol/ L Steve Test A-a O2 Gradient (5-10) mmHg Hematocrit (37-47) % Hgb O2 Saturation (95-100) % Carboxyhemoglobin (0.4-20.1) %THgb Methemoglobin (0.4-1.5) % Total Hemoglobin (12-16) g/dL Sodium (131-143) mmol/L Potassium (3.5-5.0) mmol/L Glucose (70-115) mg/dL Ionized Calcium (1.1-1.4) mmol/L O2 Delivery Device Pole Peeler ID Chloride (98-107) mmol/L Carbon Dioxide (22-29) mmol/L Anion Gap (5-19) BUN (6-20) mg/dL Creatinine (0.5-0.9) mg/dL GFR Calculation (90-130) mL/min Calculated Osmolal ity (285-295) mOsm/k g Calcium (8.5-10.5) mg/dL Total Bilirubin (0.15-1.2) mg/dL AST (0-32) U/L ALT (0-33) U/L Alkaline Phosphata se (35-105) IU/L NT-Pro-B Natriuret Pep 303 H (0-125) pg/mL Total Protein (6.6-8.7) g/dL Albumin (3.5-5.2) g/dL Globulin (1.3-4.6) g/dL Lipase (13-60) U/L Vitamin B12 239 (232-1245) pg/mL Folate 4.4 L (4.8-37.3) ng/mL TSH 1.07 (0.27-4.20) uIU/ mL Urine Color (Yellow) Urine Appearance (CLEAR) Urine pH (5-7) Ur Specific Gravit y (1.005-1.030) Urine Protein (Negative) Urine Glucose (UA) (Normal) Urine Ketones (Negative) Urine Blood (Negative) Urine Nitrate (Negative) Urine Bilirubin (Negative) Urine Urobilinogen (Negative) mg/dL Ur Leukocyte Estephania ase (Negative) Urine RBC (0-2) /hpf Urine WBC (0-5) /hpf Ur Squamous Epith Cells (0-5) /hpf Amorphous Sediment Urine Bacteria (NONE) /hpf Ur Random Sodium mmol/L Ur Random Potassiu m mmol/L Ur Random Chloride mmol/L Urine Creatinine (28-217) mg/dL Urine Opiates Scre en (Negative) ng/mL Ur Barbiturates Sc reen (Negative) ng/mL Ur Phencyclidine S crn (Negative) ng/mL Ur Amphetamines Sc reen (Negative) ng/mL U Benzodiazepines Scrn (Negative) ng/mL Urine Cocaine Scre en (Negative) ng/mL U Marijuana (THC) Screen (Negative) ng/mL Serum Ketones Negative (Negative) 12/22/20 12/22/20 12/22/20 Range/Units 16:07 16:07 16:07 WBC (4.0-10.0) 10^3/ uL RBC (4.1-5.3) 10^6/u L Hgb (11.5-15.3) g/dL Hct (37.0-47.0) % MCV (81-99) fL MCH (28.0-34.0) pg MCHC (30.0-36.0) g/dL RDW (12.1-15.1) % Plt Count (130-400) 10^3/c mm MPV (7.4-10.4) fL Neut % (Auto) % Lymph % (Auto) % [place] % (Auto) % Eos % (Auto) % Baso % (Auto) % Neut # (Auto) (1.8-7.7) 10^3/u L Lymph # (Auto) (0.8-4.8) 10^3/u L [place] # (Auto) (0.2-0.9) 10^3/u L Eos # (Auto) (0.0-0.8) 10^3/u L Baso # (Auto) (0.0-0.1) 10^3/u L Nucleated RBC % (a uto) % Nucleated RBCs # /100WBC Specimen Type Sample Site ABG pH (7.35-7.45) ABG pCO2 (35-45) mmHg ABG pO2 (80.0-100.0) mmH g ABG HCO3 (22-26) mmol/L ABG O2 Saturation ABG Base Excess (-2.0-2.0) mmol/ L Steve Test A-a O2 Gradient (5-10) mmHg Hematocrit (37-47) % Hgb O2 Saturation (95-100) % Carboxyhemoglobin (0.4-20.1) %THgb Methemoglobin (0.4-1.5) % Total Hemoglobin (12-16) g/dL Sodium (131-143) mmol/L Potassium (3.5-5.0) mmol/L Glucose (70-115) mg/dL Ionized Calcium (1.1-1.4) mmol/L O2 Delivery Device Pole Peeler ID Chloride (98-107) mmol/L Carbon Dioxide (22-29) mmol/L Anion Gap (5-19) BUN (6-20) mg/dL Creatinine (0.5-0.9) mg/dL GFR Calculation (90-130) mL/min Calculated Osmolal ity (285-295) mOsm/k g Calcium (8.5-10.5) mg/dL Total Bilirubin (0.15-1.2) mg/dL AST (0-32) U/L ALT (0-33) U/L Alkaline Phosphata se (35-105) IU/L NT-Pro-B Natriuret Pep (0-125) pg/mL Total Protein (6.6-8.7) g/dL Albumin (3.5-5.2) g/dL Globulin (1.3-4.6) g/dL Lipase (13-60) U/L Vitamin B12 (232-1245) pg/mL Folate (4.8-37.3) ng/mL TSH (0.27-4.20) uIU/ mL Urine Color Yellow (Yellow) Urine Appearance Clear (CLEAR) Urine pH 6.5 (5-7) Ur Specific Gravit y 1.005 (1.005-1.030) Urine Protein 3+ H (Negative) Urine Glucose (UA) 2+ (Normal) Urine Ketones Negative (Negative) Urine Blood 2+ H (Negative) Urine Nitrate Negative (Negative) Urine Bilirubin Neg (Negative) Urine Urobilinogen Norm (Negative) mg/dL Ur Leukocyte Estephania ase Negative (Negative) Urine RBC 0-4 H (0-2) /hpf Urine WBC 0-4 H (0-5) /hpf Ur Squamous Epith Cells 0-4 H (0-5) /hpf Amorphous Sediment Not Reportable Urine Bacteria Trace (NONE) /hpf Ur Random Sodium 152 mmol/L Ur Random Potassiu m 33 mmol/L Ur Random Chloride 159 mmol/L Urine Creatinine (28-217) mg/dL Urine Opiates Scre en Positive H (Negative) ng/mL Ur Barbiturates Sc reen Negative (Negative) ng/mL Ur Phencyclidine S crn Negative (Negative) ng/mL Ur Amphetamines Sc reen Negative (Negative) ng/mL U Benzodiazepines Scrn Negative (Negative) ng/mL Urine Cocaine Scre en Negative (Negative) ng/mL U Marijuana (THC) Screen Negative (Negative) ng/mL Serum Ketones (Negative) 12/22/20 Range/Units 16:07 WBC (4.0-10.0) 10^3/ uL RBC (4.1-5.3) 10^6/u L Hgb (11.5-15.3) g/dL Hct (37.0-47.0) % MCV (81-99) fL MCH (28.0-34.0) pg MCHC (30.0-36.0) g/dL RDW (12.1-15.1) % Plt Count (130-400) 10^3/c mm MPV (7.4-10.4) fL Neut % (Auto) % Lymph % (Auto) % [place] % (Auto) % Eos % (Auto) % Baso % (Auto) % Neut # (Auto) (1.8-7.7) 10^3/u L Lymph # (Auto) (0.8-4.8) 10^3/u L [place] # (Auto) (0.2-0.9) 10^3/u L Eos # (Auto) (0.0-0.8) 10^3/u L Baso # (Auto) (0.0-0.1) 10^3/u L Nucleated RBC % (a uto) % Nucleated RBCs # /100WBC Specimen Type Sample Site ABG pH (7.35-7.45) ABG pCO2 (35-45) mmHg ABG pO2 (80.0-100.0) mmH g ABG HCO3 (22-26) mmol/L ABG O2 Saturation ABG Base Excess (-2.0-2.0) mmol/ L Steve Test A-a O2 Gradient (5-10) mmHg Hematocrit (37-47) % Hgb O2 Saturation (95-100) % Carboxyhemoglobin (0.4-20.1) %THgb Methemoglobin (0.4-1.5) % Total Hemoglobin (12-16) g/dL Sodium (131-143) mmol/L Potassium (3.5-5.0) mmol/L Glucose (70-115) mg/dL Ionized Calcium (1.1-1.4) mmol/L O2 Delivery Device Pole Peeler ID Chloride (98-107) mmol/L Carbon Dioxide (22-29) mmol/L Anion Gap (5-19) BUN (6-20) mg/dL Creatinine (0.5-0.9) mg/dL GFR Calculation (90-130) mL/min Calculated Osmolal ity (285-295) mOsm/k g Calcium (8.5-10.5) mg/dL Total Bilirubin (0.15-1.2) mg/dL AST (0-32) U/L ALT (0-33) U/L Alkaline Phosphata se (35-105) IU/L NT-Pro-B Natriuret Pep (0-125) pg/mL Total Protein (6.6-8.7) g/dL Albumin (3.5-5.2) g/dL Globulin (1.3-4.6) g/dL Lipase (13-60) U/L Vitamin B12 (232-1245) pg/mL Folate (4.8-37.3) ng/mL TSH (0.27-4.20) uIU/ mL Urine Color (Yellow) Urine Appearance (CLEAR) Urine pH (5-7) Ur Specific Gravit y (1.005-1.030) Urine Protein (Negative) Urine Glucose (UA) (Normal) Urine Ketones (Negative) Urine Blood (Negative) Urine Nitrate (Negative) Urine Bilirubin (Negative) Urine Urobilinogen (Negative) mg/dL Ur Leukocyte Estephania ase (Negative) Urine RBC (0-2) /hpf Urine WBC (0-5) /hpf Ur Squamous Epith Cells (0-5) /hpf Amorphous Sediment Urine Bacteria (NONE) /hpf Ur Random Sodium mmol/L Ur Random Potassiu m mmol/L Ur Random Chloride mmol/L Urine Creatinine 84 (28-217) mg/dL Urine Opiates Scre en (Negative) ng/mL Ur Barbiturates Sc reen (Negative) ng/mL Ur Phencyclidine S crn (Negative) ng/mL Ur Amphetamines Sc reen (Negative) ng/mL U Benzodiazepines Scrn (Negative) ng/mL Urine Cocaine Scre en (Negative) ng/mL U Marijuana (THC) Screen (Negative) ng/mL Serum Ketones (Negative) Imaging Data^: CXR: Radiologist's impression: [address] [id number] ReportSigned Patient: Dayna Solomon #: [id number]: 1980Acct#:[id number]/Sex: 40 / FADM Date: 12/22/20Loc: ERRoom/Bed:Attending Dr: Ordering Provider/Ordering MD: Aracelis Ding Date of Service: 12/22/20 Procedure(s): XR chest 1V portable [id number] Accession Number(s): [id number] Report Number: [id number] PROCEDURE INFORMATION: Exam: XR Chest Exam date and time: 12/22/2020 1:53 PM Age: 40 years old Clinical indication: Other: N/v; Other: Back pain; Additional info: N/v; Back pain TECHNIQUE: Imaging protocol: XR of the chest. Views: 1 view. COMPARISON: CR XR chest 1V portable [id number] 11/28/2020 2:05 PM FINDINGS: Lungs: Unremarkable. No consolidation. Pleural spaces: Unremarkable. No pleural effusion. No pneumothorax. Heart/Mediastinum: Unremarkable. No cardiomegaly. Bones/joints: Unremarkable. XR/XR chest 1V portable [id number] IMPRESSION: No acute findings. Dictated By:Rafi Tillman MDSigned By:Rafi Tillman MDSigned Date/Time:12/22/20 1443DD/ 1442 Discharge Plan Discharge Patient Disposition: Placed in Observation Admit Provider: Jose A Moore Clinical Impression: Gastroparesis Discharge Diet: Cardiac Discharge Activity: Resume usual activity 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 Code ED Clinical Safety Manager for Chg Fwd Exam Comprehensive Documented by User: Karan Gracia MD 12/23/20 11:22 HPI - Back Pain/Injury General: Chief Complaint: Back Pain/Injury Stated Complaint: LOW BACK PAIN Time Seen by Provider: 12/22/20 13:45 [facility] ED PFSH: Medical History (Updated 12/24/20 @ 00:01 by ) Back pain CKD (chronic kidney disease) stage 2, GFR 60-89 ml/min -secondary to diabetic nephropathy -baseline Cr is around 1.0 Coronary artery disease -hx of CAD s/p stenting Diabetes mellitus type 1 Diabetic foot ulcer -noted on exam -Podiatry consult by Dr. Sin appreciated -arterial studies ordered, noted elevated inflammatory markers (CRP-8.0,ESR-62, thrombocytosis-resolved) -empiric IV antibiotics (Zosyn); add oral clindamycin for broader spectrum coverage including MRSA -MRI findings highly suspicious for osteomyelitis though limited by lack of contrast; arterial studies showing normal EPIFANIO -wound cx prelim is polymicrobial, gram stain grew rare GPC and GPRs. Wound cx sent from OR pending -blood cx prelim negative -suspicious for osteomyelitis on clinical evaluation; likely chronic -LLE elevation -POD # 2 s/p wound excision and skin flap advancement for primary closure of right plantar forefoot, second toe amputation at PIP right second toe Diabetic gastroparesis -secondary to DM type I Diabetic infection of right foot DKA (diabetic ketoacidoses) Failure of outpatient treatment Foot osteomyelitis, right Gastroparesis Hyperlipidemia Hypertension Hypertension Hypokalemia Intractable nausea and vomiting Leukocytosis Non-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 Osteomyelitis of foot, right, acute Type 1 diabetes mellitus -noted hx of DM type I complicated by nephropathy and neuropathy Surgical History (Updated 12/24/20 @ 00:01 by ) Below-knee amputation of left lower extremity H/O exploratory laparotomy x 3 History of amputation of right forefoot Hx of cholecystectomy Previous section x 3 S/P coronary artery stent placement x 1 S/P percutaneous endoscopic gastrostomy (PEG) tube placement Status post amputation Family History Unknown Diabetes extensive, type II Other CHF (congestive heart failure) Social History Smoking and tobacco status: former smoker Quit status (tobacco): has quit using tobacco Former quit date comment: 15 yrs ago Alcohol intake: former Former alcohol use details: 15 yrs ago Household members: spouse Marital status: Sexually active: Yes (1, ) Course Vital Signs: Vital signs: Vital Signs Temperature 98.2 F 12/23/20 12:00 Pulse Rate 81 12/23/20 12:00 Respiratory Rate 12 12/23/20 12:00 Blood Pressure 100/54 12/23/20 12:00 Pulse Oximetry 96 12/23/20 12:00 MDM - Back Pain/Injury Lab Data: Labs: Lab Results 12/22/20 12/22/20 12/22/20 Range/Units 14:21 14:56 14:56 WBC 12.9 H (4.0-10.0) 10^3/ uL RBC 4.31 (4.1-5.3) 10^6/u L Hgb 12.1 (11.5-15.3) g/dL Hct 36.4 L (37.0-47.0) % MCV 84.5 (81-99) fL MCH 28.1 (28.0-34.0) pg MCHC 33.2 (30.0-36.0) g/dL RDW 13.5 (12.1-15.1) % Plt Count 410 H (130-400) 10^3/c mm MPV 8.7 (7.4-10.4) fL Neut % (Auto) 79.6 % Lymph % (Auto) 14.2 % [place] % (Auto) 5.3 % Eos % (Auto) 0.2 % Baso % (Auto) 0.3 % Neut # (Auto) 10.28 H (1.8-7.7) 10^3/u L Lymph # (Auto) 1.8 (0.8-4.8) 10^3/u L [place] # (Auto) 0.7 (0.2-0.9) 10^3/u L Eos # (Auto) 0.0 (0.0-0.8) 10^3/u L Baso # (Auto) 0.0 (0.0-0.1) 10^3/u L Nucleated RBC % (a uto) 0 % Nucleated RBCs # 0.0 /100WBC Specimen Type Arterial Sample Site Radial, right ABG pH 7.45 (7.35-7.45) ABG pCO2 30.0 L (35-45) mmHg ABG pO2 103.0 H (80.0-100.0) mmH g ABG HCO3 20.7 L (22-26) mmol/L ABG O2 Saturation 98.5 ABG Base Excess -2.1 L (-2.0-2.0) mmol/ L Steve Test Pos A-a O2 Gradient 1.0 L (5-10) mmHg Hematocrit 45.9 (37-47) % Hgb O2 Saturation 97.8 (95-100) % Carboxyhemoglobin 0.6 (0.4-20.1) %THgb Methemoglobin 0.1 L (0.4-1.5) % Total Hemoglobin 15.0 (12-16) g/dL Sodium 140.0 136 (131-143) mmol/L Potassium 3.8 3.9 (3.5-5.0) mmol/L Glucose 226.0 H 213 H (70-115) mg/dL Ionized Calcium 1.3 (1.1-1.4) mmol/L O2 Delivery Device Room air [place] ID Gd Chloride 104 (98-107) mmol/L Carbon Dioxide 20 L (22-29) mmol/L Anion Gap 15.9 (5-19) BUN 18 (6-20) mg/dL Creatinine 1.5 H (0.5-0.9) mg/dL GFR Calculation 38.1 L (90-130) mL/min Calculated Osmolal ity 290 (285-295) mOsm/k g Calcium 9.2 (8.5-10.5) mg/dL Total Bilirubin 0.6 (0.15-1.2) mg/dL AST 11 (0-32) U/L ALT 10 (0-33) U/L Alkaline Phosphata se 132 H (35-105) IU/L NT-Pro-B Natriuret Pep (0-125) pg/mL Total Protein 7.3 (6.6-8.7) g/dL Albumin 4.1 (3.5-5.2) g/dL Globulin 3.2 (1.3-4.6) g/dL Lipase 25 (13-60) U/L Vitamin B12 (232-1245) pg/mL Folate (4.8-37.3) ng/mL TSH (0.27-4.20) uIU/ mL Urine Color (Yellow) Urine Appearance (CLEAR) Urine pH (5-7) Ur Specific Gravit y (1.005-1.030) Urine Protein (Negative) Urine Glucose (UA) (Normal) Urine Ketones (Negative) Urine Blood (Negative) Urine Nitrate (Negative) Urine Bilirubin (Negative) Urine Urobilinogen (Negative) mg/dL Ur Leukocyte Estephania ase (Negative) Urine RBC (0-2) /hpf Urine WBC (0-5) /hpf Ur Squamous Epith Cells (0-5) /hpf Amorphous Sediment Urine Bacteria (NONE) /hpf Ur Random Sodium mmol/L Ur Random Potassiu m mmol/L Ur Random Chloride mmol/L Urine Creatinine (28-217) mg/dL Urine Opiates Scre en (Negative) ng/mL Ur Barbiturates Sc reen (Negative) ng/mL Ur Phencyclidine S crn (Negative) ng/mL Ur Amphetamines Sc reen (Negative) ng/mL U Benzodiazepines Scrn (Negative) ng/mL Urine Cocaine Scre en (Negative) ng/mL U Marijuana (THC) Screen (Negative) ng/mL Serum Ketones (Negative) 12/22/20 12/22/20 12/22/20 Range/Units 14:56 14:56 14:56 WBC (4.0-10.0) 10^3/ uL RBC (4.1-5.3) 10^6/u L Hgb (11.5-15.3) g/dL Hct (37.0-47.0) % MCV (81-99) fL MCH (28.0-34.0) pg MCHC (30.0-36.0) g/dL RDW (12.1-15.1) % Plt Count (130-400) 10^3/c mm MPV (7.4-10.4) fL Neut % (Auto) % Lymph % (Auto) % [place] % (Auto) % Eos % (Auto) % Baso % (Auto) % Neut # (Auto) (1.8-7.7) 10^3/u L Lymph # (Auto) (0.8-4.8) 10^3/u L [place] # (Auto) (0.2-0.9) 10^3/u L Eos # (Auto) (0.0-0.8) 10^3/u L Baso # (Auto) (0.0-0.1) 10^3/u L Nucleated RBC % (a uto) % Nucleated RBCs # /100WBC Specimen Type Sample Site ABG pH (7.35-7.45) ABG pCO2 (35-45) mmHg ABG pO2 (80.0-100.0) mmH g ABG HCO3 (22-26) mmol/L ABG O2 Saturation ABG Base Excess (-2.0-2.0) mmol/ L Steve Test A-a O2 Gradient (5-10) mmHg Hematocrit (37-47) % Hgb O2 Saturation (95-100) % Carboxyhemoglobin (0.4-20.1) %THgb Methemoglobin (0.4-1.5) % Total Hemoglobin (12-16) g/dL Sodium (131-143) mmol/L Potassium (3.5-5.0) mmol/L Glucose (70-115) mg/dL Ionized Calcium (1.1-1.4) mmol/L O2 Delivery Device Pole Peeler ID Chloride (98-107) mmol/L Carbon Dioxide (22-29) mmol/L Anion Gap (5-19) BUN (6-20) mg/dL Creatinine (0.5-0.9) mg/dL GFR Calculation (90-130) mL/min Calculated Osmolal ity (285-295) mOsm/k g Calcium (8.5-10.5) mg/dL Total Bilirubin (0.15-1.2) mg/dL AST (0-32) U/L ALT (0-33) U/L Alkaline Phosphata se (35-105) IU/L NT-Pro-B Natriuret Pep 303 H (0-125) pg/mL Total Protein (6.6-8.7) g/dL Albumin (3.5-5.2) g/dL Globulin (1.3-4.6) g/dL Lipase (13-60) U/L Vitamin B12 239 (232-1245) pg/mL Folate 4.4 L (4.8-37.3) ng/mL TSH 1.07 (0.27-4.20) uIU/ mL Urine Color (Yellow) Urine Appearance (CLEAR) Urine pH (5-7) Ur Specific Gravit y (1.005-1.030) Urine Protein (Negative) Urine Glucose (UA) (Normal) Urine Ketones (Negative) Urine Blood (Negative) Urine Nitrate (Negative) Urine Bilirubin (Negative) Urine Urobilinogen (Negative) mg/dL Ur Leukocyte Estephania ase (Negative) Urine RBC (0-2) /hpf Urine WBC (0-5) /hpf Ur Squamous Epith Cells (0-5) /hpf Amorphous Sediment Urine Bacteria (NONE) /hpf Ur Random Sodium mmol/L Ur Random Potassiu m mmol/L Ur Random Chloride mmol/L Urine Creatinine (28-217) mg/dL Urine Opiates Scre en (Negative) ng/mL Ur Barbiturates Sc reen (Negative) ng/mL Ur Phencyclidine S crn (Negative) ng/mL Ur Amphetamines Sc reen (Negative) ng/mL U Benzodiazepines Scrn (Negative) ng/mL Urine Cocaine Scre en (Negative) ng/mL U Marijuana (THC) Screen (Negative) ng/mL Serum Ketones Negative (Negative) 12/22/20 12/22/20 12/22/20 Range/Units 16:07 16:07 16:07 WBC (4.0-10.0) 10^3/ uL RBC (4.1-5.3) 10^6/u L Hgb (11.5-15.3) g/dL Hct (37.0-47.0) % MCV (81-99) fL MCH (28.0-34.0) pg MCHC (30.0-36.0) g/dL RDW (12.1-15.1) % Plt Count (130-400) 10^3/c mm MPV (7.4-10.4) fL Neut % (Auto) % Lymph % (Auto) % [place] % (Auto) % Eos % (Auto) % Baso % (Auto) % Neut # (Auto) (1.8-7.7) 10^3/u L Lymph # (Auto) (0.8-4.8) 10^3/u L [place] # (Auto) (0.2-0.9) 10^3/u L Eos # (Auto) (0.0-0.8) 10^3/u L Baso # (Auto) (0.0-0.1) 10^3/u L Nucleated RBC % (a uto) % Nucleated RBCs # /100WBC Specimen Type Sample Site ABG pH (7.35-7.45) ABG pCO2 (35-45) mmHg ABG pO2 (80.0-100.0) mmH g ABG HCO3 (22-26) mmol/L ABG O2 Saturation ABG Base Excess (-2.0-2.0) mmol/ L Steve Test A-a O2 Gradient (5-10) mmHg Hematocrit (37-47) % Hgb O2 Saturation (95-100) % Carboxyhemoglobin (0.4-20.1) %THgb Methemoglobin (0.4-1.5) % Total Hemoglobin (12-16) g/dL Sodium (131-143) mmol/L Potassium (3.5-5.0) mmol/L Glucose (70-115) mg/dL Ionized Calcium (1.1-1.4) mmol/L O2 Delivery Device Pole Peeler ID Chloride (98-107) mmol/L Carbon Dioxide (22-29) mmol/L Anion Gap (5-19) BUN (6-20) mg/dL Creatinine (0.5-0.9) mg/dL GFR Calculation (90-130) mL/min Calculated Osmolal ity (285-295) mOsm/k g Calcium (8.5-10.5) mg/dL Total Bilirubin (0.15-1.2) mg/dL AST (0-32) U/L ALT (0-33) U/L Alkaline Phosphata se (35-105) IU/L NT-Pro-B Natriuret Pep (0-125) pg/mL Total Protein (6.6-8.7) g/dL Albumin (3.5-5.2) g/dL Globulin (1.3-4.6) g/dL Lipase (13-60) U/L Vitamin B12 (232-1245) pg/mL Folate (4.8-37.3) ng/mL TSH (0.27-4.20) uIU/ mL Urine Color Yellow (Yellow) Urine Appearance Clear (CLEAR) Urine pH 6.5 (5-7) Ur Specific Gravit y 1.005 (1.005-1.030) Urine Protein 3+ H (Negative) Urine Glucose (UA) 2+ (Normal) Urine Ketones Negative (Negative) Urine Blood 2+ H (Negative) Urine Nitrate Negative (Negative) Urine Bilirubin Neg (Negative) Urine Urobilinogen Norm (Negative) mg/dL Ur Leukocyte Estephania ase Negative (Negative) Urine RBC 0-4 H (0-2) /hpf Urine WBC 0-4 H (0-5) /hpf Ur Squamous Epith Cells 0-4 H (0-5) /hpf Amorphous Sediment Not Reportable Urine Bacteria Trace (NONE) /hpf Ur Random Sodium 152 mmol/L Ur Random Potassiu m 33 mmol/L Ur Random Chloride 159 mmol/L Urine Creatinine (28-217) mg/dL Urine Opiates Scre en Positive H (Negative) ng/mL Ur Barbiturates Sc reen Negative (Negative) ng/mL Ur Phencyclidine S crn Negative (Negative) ng/mL Ur Amphetamines Sc reen Negative (Negative) ng/mL U Benzodiazepines Scrn Negative (Negative) ng/mL Urine Cocaine Scre en Negative (Negative) ng/mL U Marijuana (THC) Screen Negative (Negative) ng/mL Serum Ketones (Negative) 12/22/20 Range/Units 16:07 WBC (4.0-10.0) 10^3/ uL RBC (4.1-5.3) 10^6/u L Hgb (11.5-15.3) g/dL Hct (37.0-47.0) % MCV (81-99) fL MCH (28.0-34.0) pg MCHC (30.0-36.0) g/dL RDW (12.1-15.1) % Plt Count (130-400) 10^3/c mm MPV (7.4-10.4) fL Neut % (Auto) % Lymph % (Auto) % [place] % (Auto) % Eos % (Auto) % Baso % (Auto) % Neut # (Auto) (1.8-7.7) 10^3/u L Lymph # (Auto) (0.8-4.8) 10^3/u L [place] # (Auto) (0.2-0.9) 10^3/u L Eos # (Auto) (0.0-0.8) 10^3/u L Baso # (Auto) (0.0-0.1) 10^3/u L Nucleated RBC % (a uto) % Nucleated RBCs # /100WBC Specimen Type Sample Site ABG pH (7.35-7.45) ABG pCO2 (35-45) mmHg ABG pO2 (80.0-100.0) mmH g ABG HCO3 (22-26) mmol/L ABG O2 Saturation ABG Base Excess (-2.0-2.0) mmol/ L Stvee Test A-a O2 Gradient (5-10) mmHg Hematocrit (37-47) % Hgb O2 Saturation (95-100) % Carboxyhemoglobin (0.4-20.1) %THgb Methemoglobin (0.4-1.5) % Total Hemoglobin (12-16) g/dL Sodium (131-143) mmol/L Potassium (3.5-5.0) mmol/L Glucose (70-115) mg/dL Ionized Calcium (1.1-1.4) mmol/L O2 Delivery Device Pole Peeler ID Chloride (98-107) mmol/L Carbon Dioxide (22-29) mmol/L Anion Gap (5-19) BUN (6-20) mg/dL Creatinine (0.5-0.9) mg/dL GFR Calculation (90-130) mL/min Calculated Osmolal ity (285-295) mOsm/k g Calcium (8.5-10.5) mg/dL Total Bilirubin (0.15-1.2) mg/dL AST (0-32) U/L ALT (0-33) U/L Alkaline Phosphata se (35-105) IU/L NT-Pro-B Natriuret Pep (0-125) pg/mL Total Protein (6.6-8.7) g/dL Albumin (3.5-5.2) g/dL Globulin (1.3-4.6) g/dL Lipase (13-60) U/L Vitamin B12 (232-1245) pg/mL Folate (4.8-37.3) ng/mL TSH (0.27-4.20) uIU/ mL Urine Color (Yellow) Urine Appearance (CLEAR) Urine pH (5-7) Ur Specific Gravit y (1.005-1.030) Urine Protein (Negative) Urine Glucose (UA) (Normal) Urine Ketones (Negative) Urine Blood (Negative) Urine Nitrate (Negative) Urine Bilirubin (Negative) Urine Urobilinogen (Negative) mg/dL Ur Leukocyte Estephania ase (Negative) Urine RBC (0-2) /hpf Urine WBC (0-5) /hpf Ur Squamous Epith Cells (0-5) /hpf Amorphous Sediment Urine Bacteria (NONE) /hpf Ur Random Sodium mmol/L Ur Random Potassiu m mmol/L Ur Random Chloride mmol/L Urine Creatinine 84 (28-217) mg/dL Urine Opiates Scre en (Negative) ng/mL Ur Barbiturates Sc reen (Negative) ng/mL Ur Phencyclidine S crn (Negative) ng/mL Ur Amphetamines Sc reen (Negative) ng/mL U Benzodiazepines Scrn (Negative) ng/mL Urine Cocaine Scre en (Negative) ng/mL U Marijuana (THC) Screen (Negative) ng/mL Serum Ketones (Negative) Discharge Plan Discharge Patient Disposition: Placed in Observation Admit Provider: Jose A Moore Clinical Impression: Gastroparesis Discharge Diet: Cardiac Discharge Activity: Resume usual activity 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 Code ED Clinical Safety Manager for Chg Fwd Exam Comprehensive
[2020-12-22] MEDS: sodium chloride 0.9% 1,000 ML 999 ML IV (14:36)
[2020-12-22] MEDS: ondansetron 2 mg/ML SDV 2 mL 4 MG IVP (14:40)
[2020-12-22] MEDS: HYDROmorphone 1 mg/mL INJ 1 mL 0.5 MG IVP ×3 (14:40→23:22)
[2020-12-22 14:44] LABS: ABG PH Result 7.45 (7.35-7.45); Arterial Blood Gas Hematocrit 45.9 % (37-47); Base Excess ABG -2.1 mmol/L (-2.0-2.0); Blood Gas Allen Test Pos; Blood Gas Operator Identificat GD; Blood Gas Sample Site Radial, right; Blood Gas Sample Type Arterial; Carboxyhemoglobin 0.6 %THgb (0.4-20.1); HCO3 ABG 20.7 mmol/L (22-26); HGB O2 Sat 97.8 % (95-100); Ionized Calcium Level - ABG 1.3 mmol/L (1.1-1.4); Methemoglobin 0.1 % (0.4-1.5); Oxygen Device ROOM AIR; Oxygen Saturation ABG 98.5; Potassium Level - ABG 3.8 mmol/L (3.5-5.0)
[2020-12-22 15:06] LABS: Basophils % 0.3 %; Eosinophils % 0.2 %; Hematocrit 36.4 % (37.0-47.0); Hemoglobin 12.1 g/dL (11.5-15.3); Lymphocytes # 1.8 10^3/uL (0.8-4.8); Lymphocytes % 14.2 %; Mean Corpuscular HGB Conc 33.2 g/dL (30.0-36.0); Mean Corpuscular Hemoglobin 28.1 pg (28.0-34.0); Mean Corpuscular Volume 84.5 fL (81-99); Mean Platelet Volume 8.7 fL (7.4-10.4); Monocytes # 0.7 10^3/uL (0.2-0.9); Monocytes % 5.3 %; Neutrophils # 10.28 10^3/uL (1.8-7.7); Neutrophils % 79.6 %; Nucleated Red Blood Cells % 0 %; Platelet Count 410 10^3/cmm (130-400); Red Blood Count 4.31 10^6/uL (4.1-5.3); Red Cell Distribution Width 13.5 % (12.1-15.1); White Blood Count 12.9 10^3/uL (4.0-10.0)
[2020-12-22] MEDS: LORazepam 2 mg/mL INJ 1 mL 1 MG IVP (15:09)
[2020-12-22 15:20] LABS: Ketone (Acetest) Serum Negative (Negative)
[2020-12-22 15:25] LABS: Alanine Aminotransferase 10 U/L (0-33); Albumin Level 4.1 g/dL (3.5-5.2); Alkaline Phosphatase 132 IU/L (35-105); Anion Gap 15.9 (5-19); Aspartate Amino Transferase 11 U/L (0-32); Blood Urea Nitrogen 18 mg/dL (6-20); Calcium 9.2 mg/dL (8.5-10.5); Carbon Dioxide 20 mmol/L (22-29); Chloride 104 mmol/L (98-107); Globulin 3.2 g/dL (1.3-4.6); Glomerular Filtration Rate 38.1 mL/min (90-130); Glucose 213 mg/dL (65-115); Lipase 25 U/L (13-60); Osmolality Calculated 290 mOsm/kg (285-295); Potassium 3.9 mmol/L (3.5-5.1); Sodium 136 mmol/L (136-145); Total Bilirubin 0.6 mg/dL (0.15-1.2); Total Protein 7.3 g/dL (6.6-8.7)
[2020-12-22] MEDS: metoclopramide 5 mg/mL SDV 2 mL 10 MG IVP ×2 (16:13→23:22)
[2020-12-22] MEDS: cloNIDine 0.1 mg Tablet PO (16:14)
[2020-12-22] MEDS: lisinopril 10 mg Tablet PO (16:15)
[2020-12-22 16:23] LABS: Amphetamines Screen Urine Negative (Negative); Barbiturates Screen Urine Negative (Negative); Benzodiazepines Screen Urine Negative (Negative); Cocaine Screen Urine Negative (Negative); Opiate Screen Urine Positive (Negative); PCP Screen Urine Negative (Negative); THC Screen Urine Negative (Negative)
[2020-12-22 16:25] LABS: Glucose Urine UA 2+ (Normal); Protein Urine 3+ (Negative); Specific Gravity, Urine 1.005 (1.005-1.030); Urine Appearance Clear (CLEAR); Urine Color Yellow (Yellow); pH Urine 6.5 (5-7)
[2020-12-22 16:26] LABS: Add Urine Microscopic? YES; Bilirubin Urine Neg (Negative); Blood Urine 2+ (Negative); Ketones Urine Negative (Negative); Leukocyte Esterase Urine Negative (Negative); Nitrate Urine Negative (Negative); Urobilinogen Urine Norm (Negative)
[2020-12-22 16:27] LABS: Add Urine Culture? No; Bacteria Urine TRACE /hpf; RBC Urine 0-4 /hpf (0-2); Squamous Epithelial Cell Urine 0-4 /hpf (0-5); WBC Urine 0-4 /hpf (0-5)
--- NOTE | 2020-12-22 16:30 | CTR_ITS ---
PROCEDURE INFORMATION: Exam: CT Abdomen And Pelvis Without Contrast Exam date and time: 12/22/2020 4:51 PM Age: 40 years old Clinical indication: Abdominal pain; Flank; Right; Prior surgery; Surgery type: Gb, , peg tube; Additional info: R flank pain, n/v TECHNIQUE: Imaging protocol: Computed tomography of the abdomen and pelvis without contrast. Radiation optimization: All CT scans at this facility use at least one of these dose optimization techniques: automated exposure control; mA and/or kV adjustment per patient size (includes targeted exams where dose is matched to clinical indication); or iterative reconstruction. COMPARISON: CT abdomen pelvis w con* [id number] 12/13/2020 10:04 AM RADIATION DOSE METRICS: Total DLP (mGy-cm): 1895.1 FINDINGS: Liver: There is hepatomegaly measuring 21.2 cm in length. No liver mass on these noncontrast images. Gallbladder and bile ducts: There has been a cholecystectomy. Pancreas: Normal. No ductal dilation. Spleen: Normal. No splenomegaly. Adrenal glands: Normal. No mass. Kidneys and ureters: Normal. No hydronephrosis. Stomach and bowel: Unremarkable. No obstruction. No mucosal thickening. Appendix: The appendix is visualized and appears normal. Intraperitoneal space: Unremarkable. No free air. No significant fluid collection. Vasculature: Unremarkable. No abdominal aortic aneurysm. Lymph nodes: Unremarkable. No enlarged lymph nodes. Urinary bladder: Unremarkable as visualized. Reproductive: Unremarkable as visualized. Bones/joints: Degenerative change is identified in the spine. There is no evidence for acute fracture or malalignment. Soft tissues: Unremarkable. CT/CT kidney stone [id number] IMPRESSION: There are no acute concerning abnormalities. Radiation Dose CTDIVOL = (mGy): DLP = 1895.1 (mGy-cm)
[2020-12-22] MEDS: fentaNYL 50 mcg/mL INJ 2mL IVP (16:46)
[2020-12-22] MEDS: haloperidol inj 5 mg/mL INJ 1 mL IVP (16:46)
--- NOTE | 2020-12-22 18:33 | CTR_ITS ---
PROCEDURE INFORMATION: Exam: CT Lumbar Spine Without Contrast Exam date and time: 12/22/2020 7:04 PM Age: 40 years old Clinical indication: Low back pain; Additional info: Back pain with neuropathy TECHNIQUE: Imaging protocol: Computed tomography images of the lumbar spine without contrast. Radiation optimization: All CT scans at this facility use at least one of these dose optimization techniques: automated exposure control; mA and/or kV adjustment per patient size (includes targeted exams where dose is matched to clinical indication); or iterative reconstruction. COMPARISON: No relevant prior studies available. RADIATION DOSE METRICS: Total DLP (mGy-cm): 2300.3 FINDINGS: Vertebrae: No acute fracture. Normal alignment. L1-L2: No significant disc protrusion. No severe spinal canal stenosis. No significant neural foraminal narrowing. L2-L3: No significant disc protrusion. No severe spinal canal stenosis. No significant neural foraminal narrowing. L3-L4: No significant disc protrusion. No severe spinal canal stenosis. No significant neural foraminal narrowing. L4-L5: No significant disc protrusion. No severe spinal canal stenosis. No significant neural foraminal narrowing. L5-S1: No significant disc protrusion. No severe spinal canal stenosis. No significant neural foraminal narrowing. Soft tissues: Unremarkable. CT/CT lumbar spine wo con* [id number] IMPRESSION: There are no acute concerning abnormalities. If there is desire for further evaluation, a MRI could be performed. Radiation Dose CTDIVOL = (mGy): DLP = 2300.3 (mGy-cm)
--- NOTE | 2020-12-22 18:34 | P.HP_ITS ---
Providers/Chief Complaint Admitting Physician: Jose A Moore MD Chief Complaint: LOW BACK PAIN History of Present Illness Cherrie Solomon is a 40 year old female with past medical history of type 1 diabetes mellitus, DKA in the past, diabetic nephropathy, diabetic gastroparesis, diabetic neuropathy, s/p left BKA, CAD post stenting, hypertension with 2 admissions in last 1 month 1 for DKA 1 for gastroparesis who presented to the ER today complaining of back pain and left paraspinal region, nonradiating, not referring, getting worse on ambulation. Patient states she has been taking ibuprofen and multiple doses for the pain without any help. Patient denies any paresthesia more than normal, bowel or bladder accidents. She states she has been having 2 episodes of bilious vomiting as well. Denies any diarrhea, headache, dizziness, difficulty in breathing, dysuria. She has not noticed any change in the amount of urine she is making. On presentation to the ER patient was found to be hypertensive with blood pressure going as high as 220 systolics. In the ER patient was given 10 mg of oral lisinopril and 0.1 mg of oral clonidine for the blood pressures. On evaluation patient states she has had elevated blood pressures at home as well with blood pressures usually ranging from 1 60-1 80 systolics and diastolics mostly in 100s. She states her blood sugars at home has been below 200s and she has been taking her medications regularly other than not able to take oral medications for last few days because of occasional throwing up. Blood work in the ER showed a white count of 12.9, hemoglobin of 12.1, ABG showing a PCO2 30, PO2 of 103, sodium of 136, chloride of 104, carbon dioxide 20, creatinine of 1.5, AST/ALT of 11/10, alkaline phosphatase of 132, UA negative for nitrite and leuk esterase, 3+ protein, 2+ blood, drug screen positive for opiates. Review of Systems General: Reports: 10 or more systems reviewed and unremarkable except in HPI and below Const: Denies: fever(s), chills, body aches, change in appetite, change in weight, malaise, night sweats, diaphoresis, change in sleep pattern, daytime sleepiness or snoring Eyes: Denies: change in vision, blurry vision, photophobia, eye discomfort or eye discharge ENMT: Denies: throat pain, enlarged tonsils, hoarseness, mouth pain, oral sores, dry mouth, tinnitus, nasal congestion or post nasal drip Card: Denies: chest pain, palpitations, irregular heart rhythm, edema, swelling of feet/ankles, lightheadedness, syncope, pre-syncope, dyspnea on exertion, orthopnea, leg pain with exertion or acrocyanosis Resp: Denies: dyspnea, productive cough, non-productive cough, wheezing, stridor, pain on inspiration, change in phlegm color, hemoptysis or chest congestion GI: Denies: abdominal pain, nausea, vomiting, hematemesis, coffee ground emesis, dysphagia, heartburn, diarrhea, constipation, bloating, GI cramping, change in bowel habits, pain on defecation, hematochezia or melena : Denies: flank pain, dysuria, urinary frequency, urinary urgency, urinary hesitancy, nocturia or hematuria Musc: Denies: neck pain, back pain, extremity pain, joint pain, joint swelling, joint redness, joint stiffness or limited range of motion Neuro: Denies: headache(s), numbness in extremities, weakness in extremities, sensory changes, lack of coordination, difficulty walking, frequent falls, dizziness, vertigo, confusion, Slurred speech present, difficulty communicating thoughts or seizure-like activity Psych: Denies: anxiety, depression, mood swings, panic attacks, hopelessness or irritability Endo: Denies: polyuria, polydipsia, tired all the time, cold intolerance, excessive sweating, flushing or heat intolerance Keith/Lymph: Denies: easy bruising or easy bleeding All/Imm: Denies: tongue swelling, facial swelling or acute wheezing Medications/Allergies Home Medications Medication Instructions Recorded Confirmed Last Taken Type lisinopril 10 mg PO DAILY #30 tab 12/01/20 12/22/20 12/21/20 Rx promethazine 25 mg PO Q6H PRN #30 tab 12/09/20 12/22/20 Unknown Rx insulin glargine [Lantus Solostar 5 unit SUBCUT BEDTIME PRN 12/13/20 12/22/20 12/18/20 History U-100 Insulin] insulin lispro [Humalog Pen] See Rx Instructions .ROUTE .COMPLEX 12/13/20 12/22/20 12/21/20 History metformin 500 mg PO BID 12/13/20 12/22/20 Unknown History Allergies Allergy/AdvReac Type Severity Reaction Status Date / Time morphine Allergy ALGY-Difficulty Verified 12/22/20 13:50 Breathing PFSH Acute PFSH: Medical History (Updated 12/22/20 @ 18:41 by Jose A Moore MD) CKD (chronic kidney disease) stage 2, GFR 60-89 ml/min -secondary to diabetic nephropathy -baseline Cr is around 1.0 Coronary artery disease -hx of CAD s/p stenting Diabetes mellitus type 1 Diabetic foot ulcer -noted on exam -Podiatry consult by Dr. Sin appreciated -arterial studies ordered, noted elevated inflammatory markers (CRP-8.0,ESR- 62, thrombocytosis-resolved) -empiric IV antibiotics (Zosyn); add oral clindamycin for broader spectrum coverage including MRSA -MRI findings highly suspicious for osteomyelitis though limited by lack of contrast; arterial studies showing normal EPIFANIO -wound cx prelim is polymicrobial, gram stain grew rare GPC and GPRs. Wound cx sent from OR pending -blood cx prelim negative -suspicious for osteomyelitis on clinical evaluation; likely chronic -LLE elevation -POD # 2 s/p wound excision and skin flap advancement for primary closure of right plantar forefoot, second toe amputation at PIP right second toe Diabetic gastroparesis -secondary to DM type I Diabetic infection of right foot DKA (diabetic ketoacidoses) Failure of outpatient treatment Foot osteomyelitis, right Hyperlipidemia Hypertension Hypokalemia Leukocytosis Non-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 Osteomyelitis of foot, right, acute Type 1 diabetes mellitus -noted hx of DM type I complicated by nephropathy and neuropathy Surgical History Below-knee amputation of left lower extremity H/O exploratory laparotomy x 3 History of amputation of right forefoot Hx of cholecystectomy Previous section x 3 S/P coronary artery stent placement x 1 S/P percutaneous endoscopic gastrostomy (PEG) tube placement Status post amputation Family History Unknown Diabetes extensive, type II Other CHF (congestive heart failure) Social History Smoking and tobacco status: former smoker Quit status (tobacco): has quit using tobacco Former quit date comment: 15 yrs ago Alcohol intake: former Former alcohol use details: 15 yrs ago Household members: spouse Marital status: Sexually active: Yes (1, ) Female Reproductive History: Date of last menstrual period: 12/13/20 Vitals/I&O/Wt Last Vital Signs Temp 98.2 F 12/22/20 13:44 Pulse 109 H 12/22/20 17:44 Resp 16 12/22/20 17:44 BP 224/121 12/22/20 16:14 Pulse Ox 95 12/22/20 17:44 12/22/20 12/22/20 12/22/20 06:59 14:59 22:59 Intake Total 1000 / 1000 Balance 1000 / 1000 Weight last 48 hrs Weight 90.718 kg Physical Exam Narrative: EXAM NARRATIVE: General: In distress due to back pain, AO x3, right BKA, dehydrated HEENT: PERRLA, pupils bilaterally equal and reactive Chest: Normal vesicular breath sounds, no added sounds, equal good air entry bilaterally CVS: S1-S2 regular, no murmurs, no tachycardia, no gallops, no rubs Abdomen: Soft, nontender, no organomegaly, bowel sounds present Neuro: No focal deficits, no facial deformity, AO x3, power 5/5 in all limbs, Back: Paraspinal tenderness in lumbar region Data : 12/22/20 14:56 12/22/20 14:56 A&P Assessment and plan (1) Hypertensive urgency: Status: Acute (2) FIONA (acute kidney injury): Status: Acute (3) Back pain: Status: Acute (4) Intractable nausea and vomiting: Status: Acute (5) Gastroparesis: Status: Acute (6) Hypertension: Status: Acute Qualifiers: Hypertension type: essential hypertension Qualified Code(s): I10 - Essential (primary) hypertension (7) History of amputation of right forefoot: Status: Acute (8) CKD (chronic kidney disease) stage 2, GFR 60-89 ml/min: Status: Acute Additional A&P Information 40-year-old female with past medical history of type 1 diabetes mellitus, diabetic neuropathy, nephropathy, gastroparesis, right BKA presents to the ER with back pain and found to have hypertensive urgency. Hypertensive urgency: Takes lisinopril at home for blood pressures. Reports blood pressure usually running high. Blood pressure high right now because she is not able to take her oral medications along with related to pain. Given labetalol IV in the ER. Start patient on amlodipine 10 mg with first dose now, carvedilol 25 mg twice daily with first dose now. Hydralazine 10 mg IV every 8 hours for systolic blood pressure more than 180 mmHg. Echocardiogram. FIONA on CKD: Baseline creatinine seems to be around 1. FIONA most likely because of dehydration, diabetic nephropathy and use of ibuprofen at home. Check urine lites, urine creatinine. Medical reconciliation done for nephrotoxic drugs. Stop lisinopril for now. IV fluids with normal saline at 75 cc/h. Intractable nausea and vomiting: History of gastroparesis most likely secondary diabetes. Compazine and Zofran as needed.?Compazine has helped patient Back pain: History of chronic back pain. Will do lumbar spine CT scan. [place] 5 every 8 hours as needed for pain along with morphine 1 mg IV every 6 hours for pain. We will try to avoid ibuprofen. Type 1 diabetes mellitus: History of DKA in the past. Recent HbA1c 9.4 in November. Stop Metformin. Most likely will discontinue Metformin on discharge. Continue with insulin sliding scale at moderate dose. Lantus 5 units at night. Continue other chronic medications. Check vitamin B12, folate, iron panel, TSH. Full code. Admit to CSU. Heparin 5000 every 12 for DVT prophylaxis. Cardiac carb consistent diet. Attestations Medical Necessity Statement*: Admission for more than 2 midnights for FIONA on CKD, hypertensive urgency Time Spent in Patient Care: Greater than 35 minutes (>than 50% of time spent in counselling and/or direct pt care on unit) . 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 Code Acute Press Operator Assistant for Kim Mitchell Diagnoses Hypertensive urgency I16.0 FIONA (acute kidney injury) N17.9 Back pain M54.9 Intractable nausea and vomiting R11.2 Gastroparesis K31.84 Hypertension I10 Hypertension type: essential hypertension History of amputation of right forefoot Z89.431 CKD (chronic kidney disease) stage 2, GFR 60-89 ml/min N18.2
[2020-12-22] MEDS: labetalol 5 mg/mL SDV 20mL 10 MG IVP (18:59)
[2020-12-22 19:40] LABS: Potassium, Radom Urine 33 mmol/L; Urine Random Chloride 159 mmol/L; Urine Random Sodium 152 mmol/L
[2020-12-22 19:44] LABS: NT Pro B Type Natriuretic Pept 303 pg/mL (0-125); Thyroid Stimulating Hormone 1.07 uIU/mL (0.27-4.20); Vitamin B12 239 pg/mL (232-1245)
[2020-12-22 19:45] LABS: Folate Level 4.4 ng/mL (4.8-37.3)
--- NOTE | 2020-12-22 20:19 | ECG_ITS ---
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 Measurements Intervals [place] Rate: 97 P: 54 MO: 152 QRS: -12 QRSD: 110 T: 52 QT: 361 QTc: 460 Interpretive Statements SINUS RHYTHM Compared to ECG 12/03/2020 21:20:19 Sinus tachycardia no longer present Left-axis deviation no longer present Electronically Signed On 12-22-2020 20:50:33 CDT by Joseluis Tracy M.D. [id number]
[2020-12-22] MEDS: amlodipine 10 mg Tablet PO (20:30)
[2020-12-22] MEDS: prochlorperazine 10 mg Tablet PO (20:31)
[2020-12-22] MEDS: sodium chloride 0.9% 1,000 ML 75 ML IV (20:31)
[2020-12-22] MEDS: carvedilol 12.5 mg Tablet PO (20:31)
[2020-12-22] MEDS: famotidine 20 mg/2 mL INJ IVP (20:38)
[2020-12-22] MEDS: heparin 5,000 unit/mL INJ 1 mL 5000 UNIT SUBCUT (20:38)
[2020-12-22 20:42] LABS: Glucose Point of Care 261 mg/dL (70-110)
--- NOTE | 2020-12-22 20:58 | PC.NURSE ---
Report received from Russel WOOD in ED. Upon arrival to the floor patient continues to be nauseous and in pain. BP continues to be elevated. Patient is concerned about being able to keep PO pain/nausea medication down. Dr. Gonzalez was contacted about pain relief options and BP. Awaiting his response. Nurse will continue to monitor.
[2020-12-22 21:09] LABS: Urine Creatinine 84 mg/dL (28-217)
[2020-12-22 21:16] LABS: Troponin(5th) Baseline 41 ng/L (0-10)
[2020-12-22] MEDS: HYDROcodone-acetaminophen 5-325 mg Tablet 1 TAB PO (21:19)
[2020-12-22] MEDS: insulin glargine 100 units/1 mL 5 UNIT SUBCUT (21:38)
[2020-12-22] MEDS: hyDRALAzine 20 mg/mL INJ 1 mL 10 MG IVP (21:40)
--- NOTE | 2020-12-22 21:46 | PC.NURSE ---
Patient having persistent nausea with vomiting. Patient worried she is unable to keep PO medications down. Informed Dr Gonzalez and Dr Shelley. Met Dr Gonzalez in the [place] and received verbal order for Reglan 10mg IVP q8h to be given alternatively with Zofran as ordered. RBVO all orders and instructions.
--- NOTE | 2020-12-22 22:19 | ECG_ITS ---
[facility] Test Date: 2020-12-22 Pat Name: Cherrie Solomon Department: Room: 104 Gender: Female Cardiology Nurse: : 1980 Requested By: Jose A Moore Order Number: [id number] Jeff MD: Kenna Darling M.D. Measurements Intervals [place] Rate: 95 P: 7 FL: 145 QRS: -13 QRSD: 105 T: 45 QT: 365 QTc: 459 Interpretive Statements SINUS RHYTHM MINIMAL VOLTAGE CRITERIA FOR LVH, CONSIDER NORMAL VARIANT [MEETS CRITERIA IN ONE OF: R(aVL), S(V1), R(V5), R(V5/V6)+S(V1)] Compared to ECG 12/22/2020 20:47:53 No significant changes Electronically Signed On 12-25-2020 12:25:49 CDT by Kenna Darling M.D. [id number]
[2020-12-22 23:06] LABS: Troponin 5 2HR 40.31 ng/L (0-10)
[2020-12-22 23:12] LABS: Troponin 5 2HR Delta -0.69 ABS# (0-10)
[2020-12-22 23:29] LABS: Iron 20 ug/dL (37-145); Percent Saturation 6.3 % (20-50); Total Iron Binding Capacity 316 mcg/dl; Unsaturated Iron Binding 296 ug/dL (112-347)
--- NOTE | 2020-12-22 23:29 | PC.NURSE ---
Patient continues to c/o pain 8/10 and nausea with vomiting. Emesis is green watery substance. Patient drinking excessive amounts of water. Also, patient continues to have elevated blood pressures >180 as documented. BP being checked every 15min. Informed Dr Gonzalez of patient's continued complaints. Dr Gonzalez placed order for Dilaudid 0.5mg IVP which was give with the ordered dose of Reglan by ISRAEL Pinzon. Received information from brokerage branch manager Noreen, that her and other lab staff have seen attempting to make herself throw up. Unable to confirm or deny this presently. Patient able to transfer to BS with standby assist only. No distress observed during transfer to [facility]. Patient was given as needed Hydralazine 10mg IVP at 2140. This is ordered every 6 hours. No new medications for blood pressure ordered at this time.
[2020-12-23] VITALS (30 sets, daily range): BP systolic 100–205; BP diastolic 54–118; PULSE 81–118; RESP 12–32; TEMP 36.7–36.8; O2SAT 95–98
--- NOTE | 2020-12-23 00:34 | PC.NURSE ---
Patient is resting comfortably in bed. BP is currently 189/94. Will continue to monitor BP and provide pain management.
[2020-12-23] MEDS: ondansetron 2 mg/ML SDV 2 mL 4 MG IVP (01:54)
--- NOTE | 2020-12-23 02:19 | ECG_ITS ---
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 Measurements Intervals [place] Rate: 101 P: 15 AR: 147 QRS: -16 QRSD: 105 T: 56 QT: 364 QTc: 473 Interpretive Statements SINUS TACHYCARDIA ABNORMAL RHYTHM ECG Compared to ECG 12/22/2020 22:22:42 Sinus rhythm no longer present Electronically Signed On 12-25-2020 12:25:16 CDT by Kenna Darling M.D. [id number]
[2020-12-23] MEDS: hyDRALAzine 20 mg/mL INJ 1 mL 10 MG IVP (02:57)
[2020-12-23 03:11] LABS: Basophils % 0.3 %; Eosinophils % 0.1 %; Hematocrit 36.5 % (37.0-47.0); Hemoglobin 11.9 g/dL (11.5-15.3); Lymphocytes # 0.9 10^3/uL (0.8-4.8); Lymphocytes % 7.8 %; Mean Corpuscular HGB Conc 32.6 g/dL (30.0-36.0); Mean Corpuscular Volume 85.9 fL (81-99); Mean Platelet Volume 8.6 fL (7.4-10.4); Monocytes # 0.4 10^3/uL (0.2-0.9); Monocytes % 3.5 %; Neutrophils # 10.23 10^3/uL (1.8-7.7); Neutrophils % 87.9 %; Nucleated Red Blood Cells % 0 %; Platelet Count 405 10^3/cmm (130-400); Red Blood Count 4.25 10^6/uL (4.1-5.3); Red Cell Distribution Width 13.8 % (12.1-15.1); White Blood Count 11.6 10^3/uL (4.0-10.0)
--- NOTE | 2020-12-23 03:12 | PC.NURSE ---
Patient's blood pressure continues to be elevated. Current BP 205/102 Hydralazine 10mg administered. Patient states her BP is always elevated at home. Patient is requesting Ativan. Notified Dr. Gonzalez of continuous elevated BP and request for Ativan. No orders at this time. Nurse will continue to monitor.
--- NOTE | 2020-12-23 03:24 | PC.NURSE ---
Patient continues to have elevated blood pressures with c/o pain and nausea/vomiting. Patient now requesting Ativan by name. Informed Dr Gonzalez regarding blood pressures and patient request for Ativan. No orders received at this time.
[2020-12-23 03:30] LABS: Troponin 5 6HR 53.23 ng/L (0-10)
[2020-12-23 03:31] LABS: Troponin 5 6HR Delta 12.23 ng/L (0-12)
[2020-12-23 03:50] LABS: Alanine Aminotransferase 10 U/L (0-33); Albumin Level 3.8 g/dL (3.5-5.2); Alkaline Phosphatase 128 IU/L (35-105); Anion Gap 16.8 (5-19); Aspartate Amino Transferase 12 U/L (0-32); Blood Urea Nitrogen 13 mg/dL (6-20); Calcium 8.4 mg/dL (8.5-10.5); Carbon Dioxide 22 mmol/L (22-29); Chloride 103 mmol/L (98-107); Globulin 2.7 g/dL (1.3-4.6); Glomerular Filtration Rate 60.8 mL/min (90-130); Glucose 245 mg/dL (65-115); Magnesium 1.6 mg/dL (1.7-2.3); Osmolality Calculated 294 mOsm/kg (285-295); Phosphorus 3.3 mg/dL (2.5-4.5); Potassium 3.8 mmol/L (3.5-5.1); Sodium 138 mmol/L (136-145); Total Bilirubin 0.4 mg/dL (0.15-1.2); Total Protein 6.5 g/dL (6.6-8.7)
--- NOTE | 2020-12-23 04:32 | PC.NURSE ---
Patient again requesting Ativan. Informed Dr Gonzalez of continued elevated blood pressures and patient request. Doctor to place orders.
[2020-12-23] MEDS: cloNIDine 0.1 mg Tablet PO (04:44)
--- NOTE | 2020-12-23 04:52 | PC.NURSE ---
Patient continues to ask for IV pain medication and Ativan. Reports she is unable to keep PO medication down. When patient is unaware of nurse walking by the room she appears to be sleeping comfortably. If patient hears someone walking by the room or entering the room she appears to jump up and grab the emesis basin. Administered Clonidine 0.1mg as ordered. Instructed patient that unable to give additional IV medications at this time due to amount previously given. Patient expressed disappointment but does not verbal pain when asked. Continues to ask for IV medications. Dr. Gonzalez informed and aware. Nurse will continue to monitor.
--- NOTE | 2020-12-23 06:19 | PC.NURSE ---
Dr Moore was notified that Morphine is on the patients MAR but has an allergy to Morphine. He stated do not give Morphine at this time. No order was given to stop/hold the medication.
[2020-12-23 06:37] LABS: Glucose Point of Care 240 mg/dL (70-110)
[2020-12-23] MEDS: sodium chloride 0.9% 1,000 ML 75 ML IV (08:47)
[2020-12-23] MEDS: carvedilol 12.5 mg Tablet PO (08:47)
[2020-12-23] MEDS: heparin 5,000 unit/mL INJ 1 mL 5000 UNIT SUBCUT (08:47)
[2020-12-23] MEDS: amlodipine 10 mg Tablet PO (08:47)
[2020-12-23] MEDS: famotidine 20 mg/2 mL INJ IVP (08:47)
--- NOTE | 2020-12-23 10:40 | PM.DCS ---
Discharge Providers Date of Admission: 12/22/20 18:09 Date of Discharge: December 23, 2020 Attending Provider at Admission: Jose A Moore MD Attending Provider at Discharge: Jose A Moore MD Diagnoses at Discharge Discharge Diagnosis (1) Hypertensive urgency: Status: Acute (2) FIONA (acute kidney injury): Status: Acute (3) Back pain: Status: Acute (4) Intractable nausea and vomiting: Status: Acute (5) Gastroparesis: Status: Acute (6) Hypertension: Status: Acute Qualifiers: Hypertension type: essential hypertension Qualified Code(s): I10 - Essential (primary) hypertension (7) History of amputation of right forefoot: Status: Acute (8) CKD (chronic kidney disease) stage 2, GFR 60-89 ml/min: Status: Acute Permanent problem details: -secondary to diabetic nephropathy -baseline Cr is around 1.0 Reason for Visit Reason for Visit: LOW BACK PAIN Hospital Course Hospital Course Cherrie Solomon is a 40 year old female with past medical history of type 1 diabetes mellitus, DKA in the past, diabetic nephropathy, diabetic gastroparesis, diabetic neuropathy, s/p left BKA, CAD post stenting, hypertension with 2 admissions in last 1 month 1 for DKA 1 for gastroparesis who presented to the ER today complaining of back pain and left paraspinal region, nonradiating, not referring, getting worse on ambulation. Patient states she has been taking ibuprofen and multiple doses for the pain without any help. Patient denies any paresthesia more than normal, bowel or bladder accidents. She states she has been having 2 episodes of bilious vomiting as well. Denies any diarrhea, headache, dizziness, difficulty in breathing, dysuria. She has not noticed any change in the amount of urine she is making. On presentation to the ER patient was found to be hypertensive with blood pressure going as high as 220 systolics. In the ER patient was given 10 mg of oral lisinopril and 0.1 mg of oral clonidine for the blood pressures. On evaluation patient states she has had elevated blood pressures at home as well with blood pressures usually ranging from 1 60-1 80 systolics and diastolics mostly in 100s. She states her blood sugars at home has been below 200s and she has been taking her medications regularly other than not able to take oral medications for last few days because of occasional throwing up. Blood work in the ER showed a white count of 12.9, hemoglobin of 12.1, ABG showing a PCO2 30, PO2 of 103, sodium of 136, chloride of 104, carbon dioxide 20, creatinine of 1.5, AST/ALT of 11/10, alkaline phosphatase of 132, UA negative for nitrite and leuk esterase, 3+ protein, 2+ blood, drug screen positive for opiates. Patient went to the hospital for management of high blood pressure and back pain. High blood pressure was treated with oral antihypertensives. Her home antihypertensives were adjusted. She responded well to the treatment. On admission she was also found to be in FIONA which responded well to the IV hydration and creatinine was back to her baseline by the time of discharge. Back pain patient had multiple imaging studies done on recent admission for which she was discharged on December 07. The studies were reviewed. CT lumbar spine was done which was negative for any acute abnormality. It is quite possible that patient's pain in the back is most likely secondary to neuropathy because of advanced diabetes. During hospitalization patient asked for multiple IV pain meds and Ativan. On further questioning she stated she uses hydrocodone 1 tablet every 4-6 hours as needed for pain. She got hydrocodone from hospital as per her. She has not been able to see her primary care provider on the set appointment of December 09 as she states she was in the ER. Fresh appointment has been made for her to be seen by her primary care provider. Patient is discharged in stable condition to follow-up with her primary care provider on adjusted antihypertensives and gabapentin. Physical Exam Narrative: EXAM NARRATIVE: General: Sleeping in the room, alert on waking up. Denies any nausea, vomiting on room air HEENT: PERRLA, pupils bilaterally equal and reactive Chest: Normal vesicular breath sounds, no added sounds, equal good air entry bilaterally CVS: S1-S2 regular, no murmurs, no tachycardia, no gallops, no rubs Abdomen: Soft, nontender, no organomegaly, bowel sounds present Neuro: No focal deficits, no facial deformity, AO x3, power 5/5 in all limbs, Back: Paraspinal tenderness in lumbar region Discharge Data Data Completed and Pending: Completed Studies During Hospitalization Category Date Time Status CT kidney stone 7 [id number] Urgent Cat Scan 12/22/20 16:[address] lumbar spine w o con* [id number] Routi ne Cat Scan 12/22/20 18:33 Completed XR chest 1V angle ble [id number] Urgent Exams 12/22/20 13:50 Completed Pending at discharge Category Date Time Status CV echo complete* [id number] Routine Ultrasound 12/23/20 05:00 Ordered Labs from last 24 hours 12/23/20 12/23/20 12/23/20 06:30 03:03 03:03 WBC 11.6 H RBC 4.25 Hgb 11.9 Hct 36.5 L MCV 85.9 MCH 28.0 MCHC 32.6 RDW 13.8 Plt Count 405 H MPV 8.6 Neut % (Auto) 87.9 Lymph % (Auto) 7.8 [place] % (Auto) 3.5 Eos % (Auto) 0.1 Baso % (Auto) 0.3 Neut # (Auto) 10.23 H Lymph # (Auto) 0.9 [place] # (Auto) 0.4 Eos # (Auto) 0.0 Baso # (Auto) 0.0 Nucleated RBC % (a uto) 0 Nucleated RBCs # 0.0 Specimen Type Sample Site ABG pH ABG pCO2 ABG pO2 ABG HCO3 ABG O2 Saturation ABG Base Excess Steve Test A-a O2 Gradient Hematocrit Hgb O2 Saturation Carboxyhemoglobin Methemoglobin Total Hemoglobin Sodium 138 Potassium 3.8 Glucose 245 H Ionized Calcium O2 Delivery Device Railroad Car Repairman ID Chloride 103 Carbon Dioxide 22 Anion Gap 16.8 BUN 13 Creatinine 1.0 H GFR Calculation 60.8 L POC Glucose 240 H Calculated Osmolal ity 294 Calcium 8.4 L Phosphorus 3.3 Magnesium 1.6 L Iron TIBC % Saturation Unsat Iron Binding Total Bilirubin 0.4 AST 12 ALT 10 Alkaline Phosphata se 128 H Troponin T Baselin e Troponin T 120 Min [place] Delta Troponin T Troponin T Hi Sens 6Hr Troponin T Hi Sens 6Hr Delta NT-Pro-B Natriuret Pep Total Protein 6.5 L Albumin 3.8 Globulin 2.7 Lipase Vitamin B12 Folate TSH Urine Color Urine Appearance Urine pH Ur Specific Gravit y Urine Protein Urine Glucose (UA) Urine Ketones Urine Blood Urine Nitrate Urine Bilirubin Urine Urobilinogen Ur Leukocyte Estephania ase Urine RBC Urine WBC Ur Squamous Epith Cells Amorphous Sediment Urine Bacteria Ur Random Sodium Ur Random Potassiu m Ur Random Chloride Urine Creatinine Urine Opiates Scre en Ur Barbiturates Sc reen Ur Phencyclidine S crn Ur Amphetamines Sc reen U Benzodiazepines Scrn Urine Cocaine Scre en U Marijuana (THC) Screen Serum Ketones 12/23/20 12/22/20 12/22/20 03:03 22:41 20:39 WBC RBC Hgb Hct MCV MCH MCHC RDW Plt Count MPV Neut % (Auto) Lymph % (Auto) [place] % (Auto) Eos % (Auto) Baso % (Auto) Neut # (Auto) Lymph # (Auto) [place] # (Auto) Eos # (Auto) Baso # (Auto) Nucleated RBC % (a uto) Nucleated RBCs # Specimen Type Sample Site ABG pH ABG pCO2 ABG pO2 ABG HCO3 ABG O2 Saturation ABG Base Excess Steve Test A-a O2 Gradient Hematocrit Hgb O2 Saturation Carboxyhemoglobin Methemoglobin Total Hemoglobin Sodium Potassium Glucose Ionized Calcium O2 Delivery Device Railroad Car Repairman ID Chloride Carbon Dioxide Anion Gap BUN Creatinine GFR Calculation POC Glucose 261 H Calculated Osmolal ity Calcium Phosphorus Magnesium Iron TIBC % Saturation Unsat Iron Binding Total Bilirubin AST ALT Alkaline Phosphata se Troponin T Baselin e Troponin T 120 Min [place] 40.31 H Delta Troponin T -0.69 L Troponin T Hi Sens 6Hr 53.23 H Troponin T Hi Sens 6Hr Delta 12.23 H* NT-Pro-B Natriuret Pep Total Protein Albumin Globulin Lipase Vitamin B12 Folate TSH Urine Color Urine Appearance Urine pH Ur Specific Gravit y Urine Protein Urine Glucose (UA) Urine Ketones Urine Blood Urine Nitrate Urine Bilirubin Urine Urobilinogen Ur Leukocyte Estephania ase Urine RBC Urine WBC Ur Squamous Epith Cells Amorphous Sediment Urine Bacteria Ur Random Sodium Ur Random Potassiu m Ur Random Chloride Urine Creatinine Urine Opiates Scre en Ur Barbiturates Sc reen Ur Phencyclidine S crn Ur Amphetamines Sc reen U Benzodiazepines Scrn Urine Cocaine Scre en U Marijuana (THC) Screen Serum Ketones 12/22/20 12/22/20 12/22/20 20:34 20:34 16:07 WBC RBC Hgb Hct MCV MCH MCHC RDW Plt Count MPV Neut % (Auto) Lymph % (Auto) [place] % (Auto) Eos % (Auto) Baso % (Auto) Neut # (Auto) Lymph # (Auto) [place] # (Auto) Eos # (Auto) Baso # (Auto) Nucleated RBC % (a uto) Nucleated RBCs # Specimen Type Sample Site ABG pH ABG pCO2 ABG pO2 ABG HCO3 ABG O2 Saturation ABG Base Excess Steve Test A-a O2 Gradient Hematocrit Hgb O2 Saturation Carboxyhemoglobin Methemoglobin Total Hemoglobin Sodium Potassium Glucose Ionized Calcium O2 Delivery Device Railroad Car Repairman ID Chloride Carbon Dioxide Anion Gap BUN Creatinine GFR Calculation POC Glucose Calculated Osmolal ity Calcium Phosphorus Magnesium Iron 20 L TIBC 316 % Saturation 6.3 L Unsat Iron Binding 296 Total Bilirubin AST ALT Alkaline Phosphata se Troponin T Baselin e 41 H Troponin T 120 [address] [place] Delta Troponin T Troponin T Hi Sens 6Hr Troponin T Hi Sens 6Hr Delta NT-Pro-B Natriuret Pep Total Protein Albumin Globulin Lipase Vitamin B12 Folate TSH Urine Color Urine Appearance Urine pH Ur Specific Gravit y Urine Protein Urine Glucose (UA) Urine Ketones Urine Blood Urine Nitrate Urine Bilirubin Urine Urobilinogen Ur Leukocyte Estephania ase Urine RBC Urine WBC Ur Squamous Epith Cells Amorphous Sediment Urine Bacteria Ur Random Sodium Ur Random Potassiu m Ur Random Chloride Urine Creatinine 84 Urine Opiates Scre en Ur Barbiturates Sc reen Ur Phencyclidine S crn Ur Amphetamines Sc reen U Benzodiazepines Scrn Urine Cocaine Scre en U Marijuana (THC) Screen Serum Ketones 12/22/20 12/22/20 12/22/20 16:07 16:07 16:07 WBC RBC Hgb Hct MCV MCH MCHC RDW Plt Count MPV Neut % (Auto) Lymph % (Auto) [place] % (Auto) Eos % (Auto) Baso % (Auto) Neut # (Auto) Lymph # (Auto) [place] # (Auto) Eos # (Auto) Baso # (Auto) Nucleated RBC % (a uto) Nucleated RBCs # Specimen Type Sample Site ABG pH ABG pCO2 ABG pO2 ABG HCO3 ABG O2 Saturation ABG Base Excess Steve Test A-a O2 Gradient Hematocrit Hgb O2 Saturation Carboxyhemoglobin Methemoglobin Total Hemoglobin Sodium Potassium Glucose Ionized Calcium O2 Delivery Device Railroad Car Repairman ID Chloride Carbon Dioxide Anion Gap BUN Creatinine GFR Calculation POC Glucose Calculated Osmolal ity Calcium Phosphorus Magnesium Iron TIBC % Saturation Unsat Iron Binding Total Bilirubin AST ALT Alkaline Phosphata se Troponin T Baselin e Troponin T 120 Min [place] Troponin T Troponin T Hi Sens 6Hr Troponin T Hi Sens 6Hr [place] NT-Pro-B Natriuret Pep Total Protein Albumin Globulin Lipase Vitamin B12 Folate TSH Urine Color Yellow Urine Appearance Clear Urine pH 6.5 Ur Specific Gravit y 1.005 Urine Protein 3+ H Urine Glucose (UA) 2+ Urine Ketones Negative Urine Blood 2+ H Urine Nitrate Negative Urine Bilirubin Neg Urine Urobilinogen Norm Ur Leukocyte Estephania ase Negative Urine RBC 0-4 H Urine WBC 0-4 H Ur Squamous Epith Cells 0-4 H Amorphous Sediment Not Reportable Urine Bacteria Trace Ur Random Sodium 152 Ur Random Potassiu m 33 Ur Random Chloride 159 Urine Creatinine Urine Opiates Scre en Positive H Ur Barbiturates Sc reen Negative Ur Phencyclidine S crn Negative Ur Amphetamines Sc reen Negative U Benzodiazepines Scrn Negative Urine Cocaine Scre en Negative U Marijuana (THC) Screen Negative Serum Ketones 12/22/20 12/22/20 12/22/20 14:56 14:56 14:56 WBC RBC Hgb Hct MCV MCH MCHC RDW Plt Count MPV Neut % (Auto) Lymph % (Auto) [place] % (Auto) Eos % (Auto) Baso % (Auto) Neut # (Auto) Lymph # (Auto) [place] # (Auto) Eos # (Auto) Baso # (Auto) Nucleated RBC % (a uto) Nucleated RBCs # Specimen Type Sample Site ABG pH ABG pCO2 ABG pO2 ABG HCO3 ABG O2 Saturation ABG Base Excess Steve Test A-a O2 Gradient Hematocrit Hgb O2 Saturation Carboxyhemoglobin Methemoglobin Total Hemoglobin Sodium Potassium Glucose Ionized Calcium O2 Delivery Device Railroad Car Repairman ID Chloride Carbon Dioxide Anion Gap BUN Creatinine GFR Calculation POC Glucose Calculated Osmolal ity Calcium Phosphorus Magnesium Iron TIBC % Saturation Unsat Iron Binding Total Bilirubin AST ALT Alkaline Phosphata se Troponin T Baselin e Troponin T 120 [address] [place] Delta Troponin T Troponin T Hi Sens 6Hr Troponin T Hi Sens 6Hr [place] NT-Pro-B Natriuret Pep 303 H Total Protein Albumin Globulin Lipase Vitamin B12 239 Folate 4.4 L TSH 1.07 Urine Color Urine Appearance Urine pH Ur Specific Gravit y Urine Protein Urine Glucose (UA) Urine Ketones Urine Blood Urine Nitrate Urine Bilirubin Urine Urobilinogen Ur Leukocyte Estephania ase Urine RBC Urine WBC Ur Squamous Epith Cells Amorphous Sediment Urine Bacteria Ur Random Sodium Ur Random [place]ass[place] m Ur Random Chloride Urine Creatinine Urine Opiates Scre en Ur Barbiturates Sc reen Ur Phencyclidine S crn Ur Amphetamines Sc reen U Benzodiazepines Scrn Urine Cocaine Scre en U Marijuana (THC) Screen Serum Ketones Negative 12/22/20 12/22/20 12/22/20 14:56 14:56 14:21 WBC 12.9 H RBC 4.31 Hgb 12.1 Hct 36.4 L MCV 84.5 MCH 28.1 MCHC 33.2 RDW 13.5 Plt Count 410 H MPV 8.7 Neut % (Auto) 79.6 Lymph % (Auto) 14.2 [place] % (Auto) 5.3 Eos % (Auto) 0.2 Baso % (Auto) 0.3 Neut # (Auto) 10.28 H Lymph # (Auto) 1.8 [place] # (Auto) 0.7 Eos # (Auto) 0.0 Baso # (Auto) 0.0 Nucleated RBC % (a uto) 0 Nucleated RBCs # 0.0 Specimen Type Arterial Sample Site Radial, right ABG pH 7.45 ABG pCO2 30.0 L ABG pO2 103.0 H ABG HCO3 20.7 L ABG O2 Saturation 98.5 ABG Base Excess -2.1 L Steve Test Pos A-a O2 Gradient 1.0 L Hematocrit 45.9 Hgb O2 Saturation 97.8 Carboxyhemoglobin 0.6 Methemoglobin 0.1 L Total Hemoglobin 15.0 Sodium 136 140.0 Potassium 3.9 3.8 Glucose 213 H 226.0 H Ionized Calcium 1.3 O2 Delivery Device Room air Railroad Car Repairman ID Gd Chloride 104 Carbon Dioxide 20 L Anion Gap 15.9 BUN 18 Creatinine 1.5 H GFR Calculation 38.1 L POC Glucose Calculated Osmolal ity 290 Calcium 9.2 Phosphorus Magnesium Iron TIBC % Saturation Unsat Iron Binding Total Bilirubin 0.6 AST 11 ALT 10 Alkaline Phosphata se 132 H Troponin T Baselin e Troponin T 120 [address] [place] Troponin T Troponin T Hi Sens 6Hr Troponin T Hi Sens 6Hr [place] NT-Pro-B Natriuret Pep Total Protein 7.3 Albumin 4.1 Globulin 3.2 Lipase 25 Vitamin B12 Folate TSH Urine Color Urine Appearance Urine pH Ur Specific Gravit y Urine Protein Urine Glucose (UA) Urine Ketones Urine Blood Urine Nitrate Urine Bilirubin Urine Urobilinogen Ur Leukocyte Estephania ase Urine RBC Urine WBC Ur Squamous Epith Cells Amorphous Sediment Urine Bacteria Ur Random Sodium Ur Random Potass[place] m Ur Random Chloride Urine Creatinine Urine Opiates Scre en Ur Barbiturates Sc reen Ur Phencyclidine S crn Ur Amphetamines Sc reen U Benzodiazepines Scrn Urine Cocaine Scre en U Marijuana (THC) Screen Serum Ketones Vitals: Last Vital Signs Temp 98.0 F 05/07/21 08:00 Pulse 96 12/23/20 08:00 Resp 14 12/23/20 08:00 BP 119/77 12/23/20 08:00 Pulse Ox 96 12/23/20 08:00 Discharge Plan Discharge Patient Disposition: Home Condition: Stable Prescriptions: New carvedilol 12.5 mg Tablet 12.5 mg PO BID Qty: 60 RF: 0 amlodipine 10 mg Tablet 10 mg PO DAILY Qty: 30 RF: 0 gabapentin 100 mg capsule 200 mg PO Q12H Qty: 60 RF: 0 Continued promethazine 25 mg tablet 25 mg PO Q6H PRN (Reason: nausea and vomiting) Qty: 30 RF: 0 insulin lispro [Humalog Pen] 100 unit/mL Insulin Pen See Rx Instructions .ROUTE .COMPLEX RF: 0 Lantus Solostar U-100 Insulin 100 unit/mL (3 mL) Insulin Pen 5 unit SUBCUT BEDTIME PRN (Reason: see pharmacy comments) 30 Days Qty: 0 RF: 0 Discontinued lisinopril 10 mg tablet 10 mg PO DAILY Qty: 30 RF: 2 metformin 500 mg tablet 500 mg PO BID RF: 0 Discharge Orders: Discharge Order (Routine); Ordered 12/23/20 Ordered By: Jose A Moore Referrals: Angelic Martinez MD [Physician] - (SaturdayJanuary 03 @ 09:30. Please bring list of your current medications. ) Discharge Diet: Cardiac Discharge Activity: Resume usual activity Patient Instructions: Opioid Safety Activity Restrictions/Additional Instructions: Take your antihypertensives as prescribed to you. For now you are supposed to be on lisinopril and Metformin. Rocephin amlodipine carvedilol. Please take gabapentin as prescribed. Please follow-up with your primary care provider on the set appointment date. Discharge Attestations Time Spent in Discharge Care*: greater than 30 min Specific Discharge Activities: educating patient, discussing with pcp/other providers, discussing with business case analyst/social workers/dc planners, documenting/other paperwork and evaluating patient/reviewing data Status at Discharge: Cognitive status at discharge: cognitively intact, Behavioral status at discharge: cooperative, Functional status at discharge: uses cane/walker Overall status at discharge: patient is back to baseline Quality Metrics Clinical Quality Measures During this hospital stay, did patient experience: None 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 Code Acute Chg FW DC note Diagnoses Hypertensive urgency I16.0 FIONA (acute kidney injury) N17.9 Back pain M54.9 Intractable nausea and vomiting R11.2 Gastroparesis K31.84 Hypertension I10 Hypertension type: essential hypertension History of amputation of right forefoot Z89.431 CKD (chronic kidney disease) stage 2, GFR 60-89 ml/min N18.2
[2020-12-23 11:33] LABS: Glucose Point of Care 164 mg/dL (70-110)
--- NOTE | 2020-12-23 12:47 | PC.NURSE ---
meds to bed received
--- NOTE | 2020-12-23 12:53 | PC.CHAP ---
Pastoral Care Encounter/Spiritual Assessment Type of Contact [] Declined nanny babysitter visit [] Patient/Family/Request visit [] Outpatient visit [] Follow-up visit [] Physician referral [] Code/Alert [] Routine visit [] Staff referral [] Actively dying [xx] Patient sleeping [] Family support [] [] Out of room [] Palliative care [] [] Receiving care in room [] Pre-surgical visit [] Trauma [] Long length of stay [] ICU visit [] Other: Relational/Emotional Strength [] Patient feels connected with others/family/visitors/staff [] Distress [] Loneliness/isolation [] Abandonment Spirituality of Patient [] Person of Vanessa [] Attends Jewish of their [place]essa [] Believes in Prayer [] Reads Bible or Pentecostal materials [] There are Spiritual issues to be addressed Utility Specialist Interventions [] Prayer [] Active listening [] Non-anxious presence [] Spiritual/emotional support [] Crisis/trauma care [] Spiritual counseling [] Bereavement support [] Provided bereavement packet [] Provided Bible/devotional materials [] Provided toy/stuffed animal, coloring book to patient or family member [] Provided Communion [] Anointing/[place] [] Salvation [] Completed spiritual assessment [] Other: Impact on Illness or Injury [] Angry [] Fearful [] Anxious [] Often cries [] Exhaustion [] Unable to work [] Unable to attend islam [] Unable to walk/stand [] Unable to read [] Unable to drive [] Unable to eat/drink [] Unable to sleep [] Unable to be with family [] Patient intubated [] Other: Summary Follow up. Patient sleeping at beginning and end of nanny babysitter's rounds. Time spent with patient
--- NOTE | 2020-12-23 15:49 | PC.NURSE ---
Discharge to home with caregiver Informed pt on her follow-up appointment. Educated pt on her new meds actions, dosing, timing and possible s/e. Pt verbalizes understanding. Discharge packet provided. Ushered pt via wheelchair.
== END 2020-12-23 15:49 | disposition home or self-care (01) | DRG 305 ==
LOC: ER 17:12 → CSU 18:22
PROVIDERS: Physician Assistant; Admitting Provider Student in an Organized Health Care Education/Training Program; Emergency Provider Family Medicine; Visit Provider Student in an Organized Health Care Education/Training Program
DX: I16.0 Hypertensive urgency (principal); N17.9 Acute kidney failure, unspecified; E10.22 Type 1 diabetes mellitus with diabetic chronic kidney disease; E10.43 Type 1 diabetes mellitus with diabetic autonomic (poly)neuropathy; E10.40 Type 1 diabetes mellitus with diabetic neuropathy, unspecified; I12.9 Hypertensive chronic kidney disease with stage 1 through stage 4 chronic kidney disease, or unspecified chronic kidney disease; K31.84 Gastroparesis; N18.2 Chronic kidney disease, stage 2 (mild); Z89.512 Acquired absence of left leg below knee; Z89.431 Acquired absence of right foot; I25.10 Atherosclerotic heart disease of native coronary artery without angina pectoris; Z95.5 Presence of coronary angioplasty implant and graft; E78.5 Hyperlipidemia, unspecified; Z93.1 Gastrostomy status; Z87.891 Personal history of nicotine dependence; M54.9 Dorsalgia, unspecified; G89.29 Other chronic pain; Z79.4 Long term (current) use of insulin
CPT/HCPCS: 36415; 36416; 36600; 71045; 72131; 74176; 80051; 80053; 80306; 81001; 82009; 82330; 82436; 82570; 82607; 82746; 82805; 82962; 83540; 83550; 83690; 83735; 83880; 84100; 84133; 84300; 84443; 84484; 85025; 93005; 94664; 96372; 96374; 96375; 99285; J0360; J1170; J1630; J1644; J1815 ×2; J2060; J2405; J2765; J3010; J3490; J7030; Q0164

== ENCOUNTER 2020-12-24 13:05 | Observation (INO) | payer MEDICAID, SELFPAY ==
[2020-12-24] VITALS (8 sets, daily range): BP systolic 148–191; BP diastolic 90–109; PULSE 90–117; RESP 16–20; TEMP 36.8–37.2; O2SAT 93–99; BMI 29.5
--- NOTE | 2020-12-24 13:12 | CTR_ITS ---
PROCEDURE INFORMATION: Exam: CT Abdomen And Pelvis Without Contrast Exam date and time: 12/24/2020 2:11 PM Age: 40 years old Clinical indication: Abdominal pain; Right; Prior surgery; Surgery date: 6+ months; Surgery type: Peg tube, gb; Patient HX: C/O R flank pain; Additional info: Flank/abdominal pain TECHNIQUE: Imaging protocol: Computed tomography of the abdomen and pelvis without contrast. Axial, coronal and sagittal reformatted images were created and reviewed. Radiation optimization: All CT scans at this facility use at least one of these dose optimization techniques: automated exposure control; mA and/or kV adjustment per patient size (includes targeted exams where dose is matched to clinical indication); or iterative reconstruction. COMPARISON: CT kidney stone [id number] 12/22/2020 5:16 PM RADIATION DOSE METRICS: Total DLP (mGy-cm): 1786.91 FINDINGS: Mediastinal space: Small hiatal hernia. Liver: Mild hepatomegaly. Gallbladder and bile ducts: Status post cholecystectomy. No biliary ductal dilatation. Pancreas: Unremarkable. Spleen: Unremarkable. Adrenal glands: Normal. No mass. Kidneys and ureters: No mass. No radiodense calculi. No hydronephrosis. Stomach and bowel: No bowel wall thickening. No obstruction. No pneumatosis. Appendix: Normal. Intraperitoneal space: No free fluid. No organized fluid collection. No free air. Vasculature: Mild atherosclerotic disease. No aneurysm. Lymph nodes: No pathologically enlarged lymph nodes. Urinary bladder: Unremarkable as visualized. Reproductive: Unremarkable. Bones/joints: No acute osseous abnormality. Osteopenia. Mild degenerative changes. Chronic partial T12 superior endplate compression deformity. Soft tissues: Diastasis of the rectus abdominus musculature. CT/CT kidney stone [id number] IMPRESSION: 1. Limited noncontrast examination without CT evidence of acute intra-abdominal or pelvic pathology. 2. Additional findings, as above. Radiation Dose CTDIVOL = (mGy): DLP = 1786.91 (mGy-cm)
--- NOTE | 2020-12-24 13:12 | XRR_ITS ---
PROCEDURE INFORMATION: Exam: XR Chest Exam date and time: 12/24/2020 1:15 PM Age: 40 years old Clinical indication: Dyspnea TECHNIQUE: Imaging protocol: XR of the chest. Views: 1 view. COMPARISON: CR XR chest 1V portable [id number] 12/22/2020 2:06 PM FINDINGS: Lungs: Unremarkable. No consolidation. Pleural spaces: Unremarkable. No pleural effusion. No pneumothorax. Heart/Mediastinum: Unremarkable. No cardiomegaly. Bones/joints: Unremarkable. XR/XR chest 1V portable [id number] IMPRESSION: No acute radiographic findings.
--- NOTE | 2020-12-24 13:14 | ECG_ITS ---
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 Measurements Intervals [place] Rate: 107 P: -9 [place]: 106 QRS: -16 QRSD: 117 T: 42 QT: 374 QTc: 499 Interpretive Statements SINUS TACHYCARDIA WITH SHORT [place] INTERVAL POSSIBLE LATERAL MYOCARDIAL INFARCTION , OF INDETERMINATE AGE [30 ms Q WAVE IN I/aVL/V5/V6] INFERIOR MYOCARDIAL INFARCTION , OF INDETERMINATE AGE [40+ ms Q WAVE AND/OR ST/T ABNORMALITY IN II/aVF] Compared to ECG 12/23/2020 03:05:11 Short [place] interval now present Myocardial infarct finding now present Electronically Signed On 12-25-2020 11:44:45 CDT by Kenna Darling M.D. [id number] f
--- NOTE | 2020-12-24 13:31 | ED_ITS ---
HPI - Abdominal Pain General: Chief Complaint: Abdominal Pain Stated Complaint: ABD PAIN Time Seen by Provider: 12/24/20 13:07 Source: patient and EMS Mode of arrival: EMS Limitations: no limitations History of Present Illness: HPI narrative: Cherrie is a very nice 40-year-old female who comes in complaining of right-sided flank pain. Patient states she woke up with the pain. Does not radiate. She denies any chest pain or shortness of breath. She is had some nausea and one episode of vomiting. Vomiting was nonbloody and nonbilious. She denies any diarrhea or constipation. She denies any urinary frequency, urgency, hematuria or dysuria. She states that she has had kidney stones in the past as well as gastroparesis but today's pain feels different than both of these disease processes. Patient is unaware of anything that makes her symptoms better or worse. She does not endorse taking anything or trying anything at home for this for improvement. She denies any other complaints or concerns just slowly wants to have her pain relief. Associated Symptoms: Reports nausea and vomiting; Denies chills, coffee ground emesis, constipation, GI cramping, diarrhea, dysuria, fever(s), heartburn, hematochezia, hematuria, hematemesis, melena and syncope Related Data: Date of Last Menstrual Period: 11/30/20 Review of Systems Const: Denies: fever(s), chills, body aches, fatigue, malaise or diaphoresis Eyes: Denies: change in vision, blurry vision, photophobia, eye discomfort, eye discharge, eye redness or yellow eyes ENMT: Denies: throat pain, odynophagia, hoarseness, swelling of lips/tongue, ear or mastoid pain, ear discharge, change in hearing or nasal discharge Card: Denies: chest pain, palpitations, irregular heart rhythm, edema, lightheadedness, syncope, pre-syncope, dyspnea on exertion or orthopnea Resp: Denies: dyspnea, productive cough, non-productive cough, wheezing, hemoptysis or chest congestion GI: Reports: abdominal pain, nausea and vomiting; Denies: hematemesis, coffee ground emesis, heartburn, diarrhea, constipation, GI cramping, hematochezia or melena : Denies: flank pain, dysuria, urinary frequency, urinary urgency or hematuria Musc: Denies: neck pain, back pain, extremity pain, extremity swelling, joint pain, joint swelling, joint redness, joint warmth or joint stiffness Skin/Breast: Denies: rash, pruritus, erythema, skin pain or skin tenderness Neuro: Denies: headache(s), numbness in extremities, weakness in extremities, sensory changes, lack of coordination, difficulty walking, dizziness, vertigo, confusion, Slurred speech present or seizure-like activity Keith/Lymph: Denies: easy bruising, easy bleeding, petechiae, purpura or enlarged lymph nodes All/Imm: Denies: urticaria, throat swelling, tongue swelling, facial swelling or acute wheezing PFSH ED PFSH: Medical History Back pain CKD (chronic kidney disease) stage 2, GFR 60-89 ml/min -secondary to diabetic nephropathy -baseline Cr is around 1.0 Coronary artery disease -hx of CAD s/p stenting Diabetes mellitus type 1 Diabetic foot ulcer -noted on exam -Podiatry consult by Dr. Sin appreciated -arterial studies ordered, noted elevated inflammatory markers (CRP-8.0,ESR-62, thrombocytosis-resolved) -empiric IV antibiotics (Zosyn); add oral clindamycin for broader spectrum coverage including MRSA -MRI findings highly suspicious for osteomyelitis though limited by lack of contrast; arterial studies showing normal EPIFANIO -wound cx prelim is polymicrobial, gram stain grew rare GPC and GPRs. Wound cx sent from OR pending -blood cx prelim negative -suspicious for osteomyelitis on clinical evaluation; likely chronic -LLE elevation -POD # 2 s/p wound excision and skin flap advancement for primary closure of right plantar forefoot, second toe amputation at PIP right second toe Diabetic gastroparesis -secondary to DM type I Diabetic infection of right foot DKA (diabetic ketoacidoses) Failure of outpatient treatment Foot osteomyelitis, right Gastroparesis Hyperlipidemia Hypertension Hypertension Hypokalemia Intractable nausea and vomiting Leukocytosis Non-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 Osteomyelitis of foot, right, acute Type 1 diabetes mellitus -noted hx of DM type I complicated by nephropathy and neuropathy Surgical History Below-knee amputation of left lower extremity H/O exploratory laparotomy x 3 History of amputation of right forefoot Hx of cholecystectomy Previous section x 3 S/P coronary artery stent placement x 1 S/P percutaneous endoscopic gastrostomy (PEG) tube placement Status post amputation Family History Unknown Diabetes extensive, type II Other CHF (congestive heart failure) Social History Smoking and tobacco status: former smoker Quit status (tobacco): has quit using tobacco Former quit date comment: 15 yrs ago Alcohol intake: former Former alcohol use details: 15 yrs ago Household members: spouse Marital status: Sexually active: Yes (1, ) Female Reproductive History: Date of last menstrual period: 11/30/20 Physical Exam Const: COMMON NORMALS: no acute distress, patient oriented x3, no limitations and alert GENERAL APPEARANCE: cooperative HENMT: COMMON NORMALS: normocephalic, atraumatic, external ears normal, EAC's normal and Normal external nose present HEAD & SCALP: normal to inspection, normocephalic and atraumatic FACE & SINUS: normal facial exam and face symmetric NOSE: Normal external nose present and Normal nares present EXTERNAL EAR: Yes external ears normal EXTERNAL AUDITORY CANAL: EAC's normal MOUTH: Normal oral and palatal mucosa present, lip normal and tongue normal Eye: COMMON NORMALS: Equal, round and reactive pupils present and conjunctivae normal GENERAL EYE: appearance normal, both eyes and all related structures ALIGNMENT: Yes alignment normal PERIORBITAL: periorbital findings normal EYELID: eyelids normal CONJUNCTIVA: Yes conjunctivae normal SCLERA: sclerae normal PUPIL: Yes Equal, round and reactive pupils present Neck/C-Spine: COMMON NORMALS: full ROM, no lymphadenopathy, supple, no meningeal signs and no JVD GENERAL: Yes normal visual inspection and Yes trachea midline Chest: COMMONS NORMALS: normal inspection of the chest and normal palpation of entire chest wall Resp: COMMON NORMALS: normal respiratory effort, No retractions, No use of accessory muscles and clear to auscultation bilaterally EFFORT & INSPECTION: Yes able to speak in complete sentences and Yes symmetric chest movement AUSCULTATION: clear to auscultation bilaterally, no crackles, no rales, no rhonchi and no wheezes Cardio: COMMON NORMALS: no JVD, regular rate, regular rhythm, S1 normal heart sound present and S2 normal heart sound present RATE: regular rate RHYTHM: regular rhythm HEART SOUNDS: S1 normal heart sound present, S2 normal heart sound present, no click, no gallops, no murmurs and no rubs GI: COMMON NORMALS: Soft to palpation and No hepatosplenomegaly present PALPATION: Yes Soft to palpation, Yes Tenderness to palpation present (GI) Details: RUQ (Mild without rebound or guarding), No Guarding due to palpation present (GI), No Rigid due to palpation, Yes No hepatosplenomegaly present, No Hernia present, No Palpable mass present and No Pulsatile mass present : COMMON NORMALS: Yes no CVA tenderness BLADDER/KIDNEY EXAM: Yes no CVA tenderness EXTERNAL FEMALE EXAM: No Hernia present Back/Pelvis: COMMON NORMALS: no CVA tenderness, thoracic and lumbar spine no rmal to inspection, no thoracic nor lumbar tenderness and thoraco-lumbar ROM normal Extremity: COMMON NORMALS: normal to inspection, full ROM, capillary refill normal, no joint enlargement, no clubbing, cyanosis or edema and no calf tenderness Neuro: COMMON NORMALS: patient oriented x3, CN's II-XII intact bilaterally, moves all extremities, no focal motor deficits and no sensory deficits noted SENSORIUM/ORIENTATION: Yes alert MENINGEAL SIGNS: Yes no meningeal signs SPEECH: speech normal Psych: COMMON NORMALS: mental status grossly normal, Normal thought process present, cooperative, normal affect, speech normal and activity/motor behavior normal SPEECH: Yes normal speech THOUGHT PROCESS: Normal thought process present Skin: COMMON NORMALS: no rashes or lesions noted, turgor normal, no jaundice, no petechiae and no mottling GENERAL SKIN EXAM: no rashes or lesions noted and turgor normal Course 2 Vital Signs: Vital signs: Vital Signs Temperature 98.2 F 12/24/20 13:05 Pulse Rate 97 12/24/20 15:00 Respiratory Rate 20 H 12/24/20 15:00 Blood Pressure 175/95 12/24/20 15:00 Pulse Oximetry 95 12/24/20 14:38 MDM - Abdominal Pain MDM Narrative: Medical decision making narrative: 1550 -patient continues to have right-sided flank pain and is nauseated and vomiting. Denies any evidence diabetic ketoacidosis, no symptoms of kidney stone, there is no evidence of OK. Believe the patient has some type of cyclic vomiting syndrome or hyperemesis syndrome. Patient does not believe she can go home like this. She is short of many medications and medication withdrawal could be a precipitant for this. I reviewed the case in full with Dr. Padilla who is agreeable to come and evaluate the patient and determine if he would like to admit her. Differential Diagnosis: Differential diagnosis abdominal pain: Likely abdominal pain, acute appendicitis, calculus of kidney, gastroenteritis and small bowel obstruction Lab Data: Attestation: I reviewed the patient's lab results. Labs: Lab Results 12/24/20 12/24/20 12/24/20 Range/Units 13:27 13:32 13:32 WBC 9.4 (4.0-10.0) 10^3/ uL RBC 4.14 (4.1-5.3) 10^6/u L Hgb 11.5 (11.5-15.3) g/dL Hct 36.4 L (37.0-47.0) % MCV 87.9 (81-99) fL MCH 27.8 L (28.0-34.0) pg MCHC 31.6 (30.0-36.0) g/dL RDW 13.9 (12.1-15.1) % Plt Count 335 (130-400) 10^3/c mm MPV 8.5 (7.4-10.4) fL Neut % (Auto) 77.8 % Lymph % (Auto) 15.5 % [place] % (Auto) 5.5 % Eos % (Auto) 0.4 % Baso % (Auto) 0.4 % Neut # (Auto) 7.30 (1.8-7.7) 10^3/u L Lymph # (Auto) 1.5 (0.8-4.8) 10^3/u L [place] # (Auto) 0.5 (0.2-0.9) 10^3/u L Eos # (Auto) 0.0 (0.0-0.8) 10^3/u L Baso # (Auto) 0.0 (0.0-0.1) 10^3/u L Nucleated RBC % (a uto) 0 % Nucleated RBCs # 0.0 /100WBC Specimen Type Arterial Sample Site Radial, right ABG pH 7.48 H (7.35-7.45) ABG pCO2 30.2 L (35-45) mmHg ABG pO2 91.4 (80.0-100.0) mmH g ABG HCO3 22.5 (22-26) mmol/L ABG O2 Saturation 98.2 ABG Base Excess -0.2 (-2.0-2.0) mmol/ L Steve Test Pos A-a O2 Gradient 2.5 L (5-10) mmHg Hematocrit 38.6 (37-47) % Hgb O2 Saturation 96.6 (95-100) % Carboxyhemoglobin 0.8 (0.4-20.1) %THgb Methemoglobin 0.8 (0.4-1.5) % Total Hemoglobin 12.6 (12-16) g/dL Sodium 137.0 134 L (131-143) mmol/L Potassium 4.3 3.9 (3.5-5.0) mmol/L Glucose 190.0 H 188 H (70-115) mg/dL Ionized Calcium 1.2 (1.1-1.4) mmol/L O2 Delivery Device Room air FiO2 21.0 % Transportation Driver ID glc Chloride 101 (98-107) mmol/L Carbon Dioxide 20 L (22-29) mmol/L Anion Gap 16.9 (5-19) BUN 19 (6-20) mg/dL Creatinine 1.3 H (0.5-0.9) mg/dL GFR Calculation 44.9 L (90-130) mL/min Calculated Osmolal ity 285 (285-295) mOsm/k g Calcium 8.6 (8.5-10.5) mg/dL Magnesium 1.7 (1.7-2.3) mg/dL Total Bilirubin 0.4 (0.15-1.2) mg/dL AST 17 (0-32) U/L ALT 13 (0-33) U/L Alkaline Phosphata se 117 H (35-105) IU/L Troponin T Baselin e (0-10) ng/L Troponin T 120 Min red devil (0-10) ng/L Delta Troponin T (0-10) ABS# Total Protein 6.4 L (6.6-8.7) g/dL Albumin 3.7 (3.5-5.2) g/dL Globulin 2.7 (1.3-4.6) g/dL Lipase 22 (13-60) U/L HCG, Qual (Negative) Ethyl Alcohol < 10 (0-10) mg/dL 12/24/20 12/24/20 12/24/20 Range/Units 13:32 13:32 15:05 WBC (4.0-10.0) 10^3/ uL RBC (4.1-5.3) 10^6/u L Hgb (11.5-15.3) g/dL Hct (37.0-47.0) % MCV (81-99) fL MCH (28.0-34.0) pg MCHC (30.0-36.0) g/dL RDW (12.1-15.1) % Plt Count (130-400) 10^3/c mm MPV (7.4-10.4) fL Neut % (Auto) % Lymph % (Auto) % [place] % (Auto) % Eos % (Auto) % Baso % (Auto) % Neut # (Auto) (1.8-7.7) 10^3/u L Lymph # (Auto) (0.8-4.8) 10^3/u L [place] # (Auto) (0.2-0.9) 10^3/u L Eos # (Auto) (0.0-0.8) 10^3/u L Baso # (Auto) (0.0-0.1) 10^3/u L Nucleated RBC % (a uto) % Nucleated RBCs # /100WBC Specimen Type Sample Site ABG pH (7.35-7.45) ABG pCO2 (35-45) mmHg ABG pO2 (80.0-100.0) mmH g ABG HCO3 (22-26) mmol/L ABG O2 Saturation ABG Base Excess (-2.0-2.0) mmol/ L Steve Test A-a O2 Gradient (5-10) mmHg Hematocrit (37-47) % Hgb O2 Saturation (95-100) % Carboxyhemoglobin (0.4-20.1) %THgb Methemoglobin (0.4-1.5) % Total Hemoglobin (12-16) g/dL Sodium (131-143) mmol/L Potassium (3.5-5.0) mmol/L Glucose (70-115) mg/dL Ionized Calcium (1.1-1.4) mmol/L O2 Delivery Device FiO2 % Transportation Driver ID Chloride (98-107) mmol/L Carbon Dioxide (22-29) mmol/L Anion Gap (5-19) BUN (6-20) mg/dL Creatinine (0.5-0.9) mg/dL GFR Calculation (90-130) mL/min Calculated Osmolal ity (285-295) mOsm/k g Calcium (8.5-10.5) mg/dL Magnesium (1.7-2.3) mg/dL Total Bilirubin (0.15-1.2) mg/dL AST (0-32) U/L ALT (0-33) U/L Alkaline Phosphata se (35-105) IU/L Troponin T Baselin e 47 H (0-10) ng/L Troponin T 120 Min red devil 43.99 H (0-10) ng/L Delta Troponin T -3.01 L (0-10) ABS# Total Protein (6.6-8.7) g/dL Albumin (3.5-5.2) g/dL Globulin (1.3-4.6) g/dL Lipase (13-60) U/L HCG, Qual Negative (Negative) Ethyl Alcohol (0-10) mg/dL EKG Data ^: EKG 1: Attestation: I personally reviewed and interpreted this EKG as follows: Interpretation: 1343 -sinus tachycardia 107, left axis deviation, significant artifact present, nonspecific ST-T wave changes. Discharge Plan Discharge Patient Disposition: Admitted As Inpatient Clinical Impression: Intractable vomiting Condition: Stable Prescriptions: No Action Lantus Solostar U-100 Insulin 100 unit/mL (3 mL) insulin pen 5 unit SUBCUT BEDTIME RF: 0 promethazine 25 mg tablet 25 mg PO Q6H PRN (Reason: nausea and vomiting) Qty: 30 RF: 0 insulin lispro 100 unit/mL Insulin Pen See Rx Instructions .ROUTE .COMPLEX RF: 0 carvedilol 12.5 mg Tablet 12.5 mg PO BID Qty: 60 RF: 0 amlodipine 10 mg Tablet 10 mg PO DAILY Qty: 30 RF: 0 gabapentin 100 mg capsule 200 mg PO Q12H Qty: 60 RF: 0 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 Code ED District Manager for Chg Fwd Exam Comprehensive
[2020-12-24] MEDS: diphenhydrAMINE 50 mg/mL SDV 1mL 25 MG IVP (13:33)
[2020-12-24] MEDS: haloperidol inj 5 mg/mL INJ 1 mL IM (13:33)
[2020-12-24] MEDS: sodium chloride 0.9% 1,000 ML 999 ML IV ×2 (13:36→15:00)
[2020-12-24] MEDS: acetaminophen 1,000 MG/100 ML PIGGYBACK 400 MG IV (13:36)
[2020-12-24 13:37] LABS: ABG PCO2 30.2 mmHg (35-45); ABG PH Result 7.48 (7.35-7.45); Alveolar-Arterial Oxygen Gradi 2.5 mmHg (5-10); Arterial Blood Gas Hematocrit 38.6 % (37-47); Base Excess ABG -0.2 mmol/L (-2.0-2.0); Blood Gas Allen Test Pos; Blood Gas Operator Identificat glc; Blood Gas Sample Site Radial, right; Blood Gas Sample Type Arterial; Carboxyhemoglobin 0.8 %THgb (0.4-20.1); HCO3 ABG 22.5 mmol/L (22-26); HGB O2 Sat 96.6 % (95-100); Ionized Calcium Level - ABG 1.2 mmol/L (1.1-1.4); Methemoglobin 0.8 % (0.4-1.5); Oxygen Device ROOM AIR; Oxygen Saturation ABG 98.2; PO2 ABG 91.4 mmHg (80.0-100.0); Potassium Level - ABG 4.3 mmol/L (3.5-5.0); Total Hemoglobin 12.6 g/dL (12-16)
--- NOTE | 2020-12-24 13:40 | PC.PHAR ---
pt states she was just discharged from the hospital on 12/23/20-pt states she still has her insulin lispro from a previous hospital in apr 2020 and still uses prn-pt states she is only taking the amlodipine,carvedilol,gabapentin,and lantus and takes the insulin lispro and promethazine prn
[2020-12-24 13:43] LABS: Basophils % 0.4 %; Eosinophils % 0.4 %; Hematocrit 36.4 % (37.0-47.0); Hemoglobin 11.5 g/dL (11.5-15.3); Lymphocytes # 1.5 10^3/uL (0.8-4.8); Lymphocytes % 15.5 %; Mean Corpuscular HGB Conc 31.6 g/dL (30.0-36.0); Mean Corpuscular Hemoglobin 27.8 pg (28.0-34.0); Mean Corpuscular Volume 87.9 fL (81-99); Mean Platelet Volume 8.5 fL (7.4-10.4); Monocytes # 0.5 10^3/uL (0.2-0.9); Monocytes % 5.5 %; Neutrophils % 77.8 %; Nucleated Red Blood Cells % 0 %; Platelet Count 335 10^3/cmm (130-400); Red Blood Count 4.14 10^6/uL (4.1-5.3); Red Cell Distribution Width 13.9 % (12.1-15.1); White Blood Count 9.4 10^3/uL (4.0-10.0)
[2020-12-24 13:51] LABS: HCG, Serum Qual Negative (Negative)
[2020-12-24 13:58] LABS: Alanine Aminotransferase 13 U/L (0-33); Albumin Level 3.7 g/dL (3.5-5.2); Alkaline Phosphatase 117 IU/L (35-105); Anion Gap 16.9 (5-19); Aspartate Amino Transferase 17 U/L (0-32); Blood Urea Nitrogen 19 mg/dL (6-20); Calcium 8.6 mg/dL (8.5-10.5); Carbon Dioxide 20 mmol/L (22-29); Chloride 101 mmol/L (98-107); Globulin 2.7 g/dL (1.3-4.6); Glomerular Filtration Rate 44.9 mL/min (90-130); Glucose 188 mg/dL (65-115); Lipase 22 U/L (13-60); Magnesium 1.7 mg/dL (1.7-2.3); Osmolality Calculated 285 mOsm/kg (285-295); Potassium 3.9 mmol/L (3.5-5.1); Sodium 134 mmol/L (136-145); Total Bilirubin 0.4 mg/dL (0.15-1.2); Total Protein 6.4 g/dL (6.6-8.7)
[2020-12-24 13:59] LABS: Alcohol Level < 10 mg/dL (0-10); Troponin(5th) Baseline 47 ng/L (0-10)
[2020-12-24] MEDS: LORazepam 2 mg/mL INJ 1 mL 1 MG IVP (14:39)
[2020-12-24] MEDS: labetalol 5 mg/mL SDV 20mL 10 MG IVP (14:39)
--- NOTE | 2020-12-24 14:39 | PC.PHAR ---
KERARA ORDERED ON WRONG PATIENT, ORDER WAS NON ADMINISTERED WITH A REASON OF NI , SINCE ACTION WAS TAKEN, ORDER CANNOT BE CANCELLED BY PHA UNLESS UNDONE.
--- NOTE | 2020-12-24 15:14 | ECG_ITS ---
[facility] Test Date: 2020-12-24 Pat Name: Cherrie Solomon Department: Room: Gender: Female Coo: : 1980 Requested By: Lynsey Roth Order Number: [id number] Aguilar MD: Kenna Darling M.D. Measurements Intervals [place] Rate: 92 P: 17 MS: 127 QRS: -4 QRSD: 95 T: 60 QT: 356 QTc: 441 Interpretive Statements SINUS RHYTHM WITH OCCASIONAL VENTRICULAR PREMATURE COMPLEXES Compared to ECG 12/24/2020 13:43:23 Ventricular premature complex(es) now present Sinus tachycardia no longer present Short [place] interval no longer present Myocardial infarct finding no longer present Electronically Signed On 12-25-2020 12:19:37 CDT by Kenna Darling M.D. [email or web address] [email or web address].[id number]
[2020-12-24 15:46] LABS: Troponin 5 2HR 43.99 ng/L (0-10)
[2020-12-24 15:49] LABS: Troponin 5 2HR Delta -3.01 ABS# (0-10)
[2020-12-24 16:27] LABS: Add Urine Microscopic? YES; Bilirubin Urine Neg (Negative); Blood Urine 2+ (Negative); Glucose Urine UA 1+ (Normal); Ketones Urine 1+ (Negative); Leukocyte Esterase Urine Negative (Negative); Nitrate Urine Negative (Negative); Protein Urine 3+ (Negative); Specific Gravity, Urine 1.015 (1.005-1.030); Urine Appearance Cloudy (CLEAR); Urine Color Straw (Yellow); Urobilinogen Urine Norm (Negative); pH Urine 5 (5-7)
[2020-12-24 16:30] LABS: Bacteria Urine 2+ /hpf; Squamous Epithelial Cell Urine 25-40 /hpf (0-5); WBC Urine 0-4 /hpf (0-5)
[2020-12-24 16:31] LABS: Add Urine Culture? No
--- NOTE | 2020-12-24 17:04 | P.HP_ITS ---
Providers/Chief Complaint Chief Complaint: ABD PAIN History of Present Illness rubin Solomon is a 40 year old female with past medical history of type 1 diabetes mellitus, DKA in the past, diabetic nephropathy, diabetic gastroparesis, diabetic neuropathy, s/p left BKA, CAD post stenting, h ypertension with 2 admissions in last 1 month 1 for DKA 1 for gastroparesis, CKD, recurrent hospitalizations for intractable nausea, vomiting, abdominal pain, diabetic gastroparesis, who presents to [facility] due to complaints of right sided abdominal pain and right flank pain, intractable nausea, vomiting. Patient was just discharged in the hospital yesterday, she tells me that she when she got home, she started develop right-sided abdominal pain with right-sided flank pain, no dysuria, no hematuria, denies passing kidney stone, she has had a cholecystectomy, she then started develop intractable nausea, vomiting, cannot keep solids or liquid down, is severely anxious, no fevers, no chills, no diarrhea, no lack of appetite, no sick contacts, she tells me that she is not on any medications for diabetic gastroparesis. Denies being . Review of Systems Const: Denies: fever(s), chills, fatigue or malaise Eyes: Denies: change in vision or blurry vision ENMT: Denies: nasal congestion Card: Denies: chest pain or palpitations Resp: Denies: dyspnea, productive cough, non-productive cough or wheezing GI: Reports: abdominal pain, nausea and vomiting; Denies: hematemesis, diarrhea, constipation, hematochezia or melena : Reports: flank pain; Denies: dysuria, urinary frequency or urinary urgency Musc: Denies: neck pain or back pain Skin/Breast: Denies: rash Neuro: Denies: headache(s), dizziness or vertigo Psych: Reports: anxiety; Denies: depression Endo: Denies: polyuria or polydipsia Medications/Allergies Home Medications Medication Instructions Recorded Confirmed Last Taken Type promethazine 25 mg PO Q6H PRN #30 tab 12/09/20 12/24/20 Unknown Rx insulin lispro See Rx Instructions .ROUTE .COMPLEX 12/13/20 12/24/20 12/21/20 History amlodipine 10 mg PO DAILY #30 tab 05/07/21 05/08/21 05/07/21 Rx carvedilol 12.5 mg PO BID #60 tab 12/23/20 12/24/20 12/23/20 Rx gabapentin 200 mg PO Q12H #60 cap 12/23/20 12/24/20 12/23/20 Rx Lantus Solostar U-100 Insulin 5 unit SUBCUT BEDTIME 12/24/20 12/24/20 12/23/20 History Allergies Allergy/AdvReac Type Severity Reaction Status Date / Time morphine Allergy ALGY-Difficulty Verified 12/24/20 13:40 Breathing PFSH Acute PFSH: Medical History (Updated 12/24/20 @ 17:10 by Randy Chung MD) Back pain CKD (chronic kidney disease) stage 2, GFR 60-89 ml/min -secondary to diabetic nephropathy -baseline Cr is around 1.0 Coronary artery disease -hx of CAD s/p stenting Diabetes mellitus type 1 Diabetic foot ulcer -noted on exam -Podiatry consult by Dr. Sin appreciated -arterial studies ordered, noted elevated inflammatory markers (CRP-8.0,ESR-62, thrombocytosis-resolved) -empiric IV antibiotics (Zosyn); add oral clindamycin for broader spectrum coverage including MRSA -MRI findings highly suspicious for osteomyelitis though limited by lack of contrast; arterial studies showing normal EPIFANIO -wound cx prelim is polymicrobial, gram stain grew rare GPC and GPRs. Wound cx sent from OR pending -blood cx prelim negative -suspicious for osteomyelitis on clinical evaluation; likely chronic -LLE elevation -POD # 2 s/p wound excision and skin flap advancement for primary closure of right plantar forefoot, second toe amputation at PIP right second toe Diabetic gastroparesis -secondary to DM type I Diabetic infection of right foot DKA (diabetic ketoacidoses) Failure of outpatient treatment Foot osteomyelitis, right Gastroparesis Hyperlipidemia Hypertension Hypertension Hypokalemia Intractable nausea and vomiting Leukocytosis Non-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 Osteomyelitis of foot, right, acute Type 1 diabetes mellitus -noted hx of DM type I complicated by nephropathy and neuropathy Surgical History Below-knee amputation of left lower extremity H/O exploratory laparotomy x 3 History of amputation of right forefoot Hx of cholecystectomy Previous section x 3 S/P coronary artery stent placement x 1 S/P percutaneous endoscopic gastrostomy (PEG) tube placement Status post amputation Family History Unknown Diabetes extensive, type II Other CHF (congestive heart failure) Social History Smoking and tobacco status: former smoker Quit status (tobacco): has quit using tobacco Former quit date comment: 15 yrs ago Alcohol intake: former Former alcohol use details: 15 yrs ago Household members: spouse Marital status: Sexually active: Yes (1, ) Female Reproductive History: Date of last menstrual period: 11/30/20 Vitals/I&O/Wt Last Vital Signs Temp 98.2 F 12/24/20 13:05 Pulse 100 12/24/20 16:00 Resp 18 12/24/20 16:00 BP 185/90 12/24/20 16:53 Pulse Ox 97 12/24/20 16:00 12/24/20 12/24/20 12/24/20 06:59 14:59 22:59 Intake Total 1000 / 1000 Balance 1000 / 1000 Weight last 48 hrs Weight 90.718 kg Physical Exam Const: COMMON NORMALS: no acute distress and patient oriented x3 GENERAL APPEARANCE: cooperative and comfortable HENMT: COMMON NORMALS: normocephalic HEAD & SCALP: normocephalic Eye: COMMON NORMALS: Equal, round and reactive pupils present and EOMs intact bilaterally GENERAL EYE: appearance normal, both eyes and all related structures PUPIL: Yes Equal, round and reactive pupils present Neck/C-Spine: COMMON NORMALS: full ROM, no lymphadenopathy, no JVD and Thyroid normal THYROID: Thyroid normal Lymph: LYMPHATIC: no lymphadenopathy noted Resp: COMMON NORMALS: normal respiratory effort, No retractions, No use of accessory muscles and clear to auscultation bilaterally AUSCULTATION: clear to auscultation bilaterally Cardio: COMMON NORMALS: no JVD, regular rate, regular rhythm, S1 normal heart sound present, S2 normal heart sound present, No gallops present (Cardio), No clicks present (Cardio) and No murmurs present (Cardio) RATE: regular rate RHYTHM: regular rhythm HEART SOUNDS: S1 normal heart sound present and S2 normal heart sound present GI: COMMON NORMALS: Normal to inspection, nondistended, normoactive bowel sounds present PALPATION: Yes Soft to palpation, Yes Tenderness to palpation present (GI) (Generalized abdominal pain), No Guarding due to palpation present (GI) and No Rigid due to palpation Extremity: COMMON NORMALS: normal to inspection, full ROM and no pedal edema Neuro: COMMON NORMALS: patient oriented x3, CN's II-XII intact bilaterally, moves all extremities and no focal motor deficits Psych: COMMON NORMALS: mental status grossly normal, Normal thought process present and cooperative THOUGHT PROCESS: Normal thought process present Data : 12/24/20 13:32 12/24/20 13:32 A&P Assessment and plan (1) Intractable vomiting: CT scan of the abdomen pelvis liver: Mild hepatomegaly. Gallbladder and bile ducts: Status post cholecystectomy. No biliary ductal dilatation. Pancreas: Unremarkable. Spleen: Unremarkable. Adrenal glands: Normal. No mass. Kidneys and ureters: No mass. No radiodense calculi. No hydronephrosis. Stomach and bowel: No bowel wall thickening. No obstruction. No pneumatosis. Appendix: Normal. Intraperitoneal space: No free fluid. No organized fluid collection. No free air. Vasculature: Mild atherosclerotic disease. No aneurysm. Lymph nodes: No pathologically enlarged lymph nodes. Urinary bladder: Unremarkable as visualized. Reproductive: Unremarkable. Bones/joints: No acute osseous abnormality. Osteopenia. Mild degenerative changes. Chronic partial T12 superior endplate compression deformity. Soft tissues: Diastasis of the rectus abdominus musculature. -No significant leukocytosis, no significant electrolyte abnormalities, LFTs within normal limits, bilirubin within normal limits, lipase within normal limits, hCG negative -No significant evidence of diabetic ketoacidosis, anion gap 16.9, no significant acidosis -Nausea, vomiting, abdominal pain likely secondary to diabetic gastroparesis -Has received Haldol, Ativan, Keppra in the ER without any improvement -In the ER patient was asking for pain and anxiety medications, advised her that we will do our best to titrate her medications Plan: -Admit to general medical floors under observation -Scheduled Reglan for diabetic gastroparesis -Zofran and promethazine for breakthrough nausea -Continue insulin sliding scale, Lantus at bedtime -IV fluids for FIONA -Ultram for pain -Klonopin for anxiety -Clear liquid diet -Rocephin for UTI -Full code -Lovenox for DVT prophylaxis Status: Acute Qualifiers: Nausea presence: with nausea Vomiting type: unspecified Qualified Code(s): R11.2 - Nausea with vomiting, unspecified (2) Abdominal pain: Status: Acute Qualifiers: Abdominal location: generalized Qualified Code(s): R10.84 - Generalized abdominal pain (3) Diabetes mellitus type 1: Status: Acute Qualifiers: Diabetes mellitus complication status: with other specified complication Qualified Code(s): E10.69 - Type 1 diabetes mellitus with other specified complication (4) Acute kidney injury: Status: Acute Attestations Medical Necessity Statement*: Patient requires hospitalization, outpatient with observation, for intractable nausea, vomiting, abdominal pain likely secondary to diabetic gastroparesis 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 Code Acute [employer] Or [employer] for [facility] Fwd Diagnoses Intractable vomiting R11.2 Nausea presence: with nausea Vomiting type: unspecified Abdominal pain R10.84 Abdominal location: generalized Diabetes mellitus type 1 E10.69 Diabetes mellitus complication status: with other specified complication Acute kidney injury N17.9
[2020-12-24 17:10] LABS: Amphetamines Screen Urine Negative (Negative); Barbiturates Screen Urine Negative (Negative); Benzodiazepines Screen Urine Negative (Negative); Cocaine Screen Urine Negative (Negative); Opiate Screen Urine Negative (Negative); PCP Screen Urine Negative (Negative); THC Screen Urine Negative (Negative)
--- NOTE | 2020-12-24 17:20 | PC.NURSE ---
attempted to call report, call back pending
[2020-12-24] MEDS: pantoprazole 40 mg SDV IVP (18:32)
[2020-12-24] MEDS: metoclopramide 5 mg/mL SDV 2 mL IVP ×2 (18:33→23:03)
[2020-12-24] MEDS: enoxaparin 40 mg/0.4 mL Syringe SUBCUT (18:34)
[2020-12-24] MEDS: gabapentin 100 mg Capsule 200 MG PO (18:42)
[2020-12-24] MEDS: carvedilol 12.5 mg Tablet PO (18:42)
[2020-12-24] MEDS: sodium chloride 0.9% 1,000 ML 75 ML IV (18:45)
[2020-12-24 18:49] LABS: Thyroid Stimulating Hormone 0.73 uIU/mL (0.27-4.20)
[2020-12-24] MEDS: CLONazepam 0.5 mg Tablet 0.25 MG PO (19:13)
[2020-12-24 20:00] LABS: Troponin 5 6HR 36.29 ng/L (0-10)
[2020-12-24 20:47] LABS: Glucose Point of Care 197 mg/dL (70-110)
[2020-12-24 20:47] LABS: Glucose Point of Care 189 mg/dL (70-110)
[2020-12-24] MEDS: insulin glargine 100 units/1 mL 5 UNIT SUBCUT (21:05)
[2020-12-24] MEDS: TRAMadol 50 mg Tablet PO (23:27)
[2020-12-25] VITALS (8 sets, daily range): BP systolic 110–179; BP diastolic 72–102; PULSE 79–114; RESP 17–18; TEMP 37–37.7; O2SAT 94–99
[2020-12-25] MEDS: labetalol 5 mg/mL SDV 20mL 10 MG IVP (04:46)
[2020-12-25 05:57] LABS: Basophils % 0.3 %; Eosinophils % 0.3 %; Hematocrit 37.6 % (37.0-47.0); Hemoglobin 12.3 g/dL (11.5-15.3); Lymphocytes # 1.2 10^3/uL (0.8-4.8); Mean Corpuscular HGB Conc 32.7 g/dL (30.0-36.0); Mean Corpuscular Hemoglobin 27.8 pg (28.0-34.0); Mean Corpuscular Volume 84.9 fL (81-99); Mean Platelet Volume 8.5 fL (7.4-10.4); Monocytes # 0.6 10^3/uL (0.2-0.9); Neutrophils # 6.03 10^3/uL (1.8-7.7); Nucleated Red Blood Cells % 0 %; Platelet Count 487 10^3/cmm (130-400); Red Blood Count 4.43 10^6/uL (4.1-5.3); Red Cell Distribution Width 13.5 % (12.1-15.1); White Blood Count 7.8 10^3/uL (4.0-10.0)
[2020-12-25] MEDS: gabapentin 100 mg Capsule 200 MG PO (06:05)
[2020-12-25] MEDS: metoclopramide 5 mg/mL SDV 2 mL IVP ×2 (06:05→12:05)
[2020-12-25 06:29] LABS: Procalcitonin 0.05 ng/mL (0-0.5)
[2020-12-25 06:35] LABS: Glucose Point of Care 183 mg/dL (70-110)
[2020-12-25 06:40] LABS: Alanine Aminotransferase 13 U/L (0-33); Albumin Level 3.7 g/dL (3.5-5.2); Alkaline Phosphatase 128 IU/L (35-105); Anion Gap 18.5 (5-19); Aspartate Amino Transferase 17 U/L (0-32); Blood Urea Nitrogen 11 mg/dL (6-20); Calcium 8.5 mg/dL (8.5-10.5); Carbon Dioxide 21 mmol/L (22-29); Chloride 98 mmol/L (98-107); Globulin 3.3 g/dL (1.3-4.6); Glomerular Filtration Rate 68.7 mL/min (90-130); Glucose 161 mg/dL (65-115); Magnesium 1.7 mg/dL (1.7-2.3); Osmolality Calculated 281 mOsm/kg (285-295); Phosphorus 2.9 mg/dL (2.5-4.5); Potassium 3.5 mmol/L (3.5-5.1); Sodium 134 mmol/L (136-145); Total Bilirubin 0.4 mg/dL (0.15-1.2)
[2020-12-25] MEDS: carvedilol 12.5 mg Tablet PO (09:12)
[2020-12-25] MEDS: amlodipine 10 mg Tablet PO (09:12)
[2020-12-25] MEDS: ondansetron 2 mg/ML SDV 2 mL 4 MG IVP (09:21)
--- NOTE | 2020-12-25 10:45 | PM.DCS ---
Discharge Providers Date of Admission: 12/24/20 16:58 Date of Discharge: December 25, 2020 Attending Provider at Admission: Randy Chung MD Attending Provider at Discharge: Randy Chung MD Diagnoses at Discharge Discharge Diagnosis (1) Intractable vomiting: Status: Acute Qualifiers: Nausea presence: with nausea Vomiting type: unspecified Qualified Code(s): R11.2 - Nausea with vomiting, unspecified (2) Abdominal pain: Status: Acute Qualifiers: Abdominal location: generalized Qualified Code(s): R10.84 - Generalized abdominal pain (3) Diabetes mellitus type 1: Status: Acute Qualifiers: Diabetes mellitus complication status: with other specified complication Qualified Code(s): E10.69 - Type 1 diabetes mellitus with other specified complication (4) Acute kidney injury: Status: Acute Reason for Visit Reason for Visit: ABD PAIN Hospital Course Hospital Course rubin Solomon is a 40 year old female with past medical history of type 1 diabetes mellitus, DKA in the past, diabetic nephropathy, diabetic gastroparesis, diabetic neuropathy, s/p left BKA, CAD post stenting, hypertension with 2 admissions in last 1 month 1 for DKA 1 for gastroparesis, CKD, recurrent hospitalizations for intractable nausea, vomiting, abdominal pain, diabetic gastroparesis, who presents to [facility] due to complaints of right sided abdominal pain and right flank pain, intractable nausea, vomiting. Patient was admitted to [facility] for intractable nausea, vomiting, secondary to diabetic gastroparesis. CT scan of the abdomen pelvis did not show any acute findings, no evidence of DKA, she was admitted to the general medical floors, received IV hydration, nausea controlled. She clinically improved, discharged on instructions to drink plenty of electrolyte balanced fluids, Reglan as needed for diabetic gastroparesis, I advised patient to not use Reglan medication for longer than 12 weeks due to associated extrapyramidal symptoms. Follow-up with primary care provider this week. For UTI, she was discharged on Bactrim. She was hypertensive throughout her hospitalization, lisinopril was added to her blood pressure regimen Physical Exam Const: COMMON NORMALS: no acute distress and patient oriented x3 Neck/C-Spine: COMMON NORMALS: no JVD Resp: COMMON NORMALS: normal respiratory effort, No retractions, No use of accessory muscles and clear to auscultation bilaterally AUSCULTATION: clear to auscultation bilaterally Cardio: COMMON NORMALS: no JVD, regular rate, regular rhythm, S1 normal heart sound present and S2 normal heart sound present RATE: regular rate RHYTHM: regular rhythm HEART SOUNDS: S1 normal heart sound present and S2 normal heart sound present GI: COMMON NORMALS: Normal to inspection, nondistended, normoactive bowel sounds present, Soft to palpation, non-tender and No hepatosplenomegaly present PALPATION: Yes Soft to palpation and Yes No hepatosplenomegaly present Extremity: COMMON NORMALS: no pedal edema Neuro: COMMON NORMALS: patient oriented x3 Psych: COMMON NORMALS: mental status grossly normal Discharge Data Data Completed and Pending: Completed Studies During Hospitalization Category Date Time Status CT kidney stone 7 [id number] Urgent Cat Scan 12/24/20 13:12 Completed XR chest 1V angle ble [id number] Stat Exams 12/24/20 13:12 Completed Pending at discharge Category Date Time Status Blood Culture Sta t Lab 12/24/20 19:32 Results Complete Blood Co unt w/Auto AM LABS Lab 12/26/20 04:00 Ordered Complete Blood Co unt w/Auto AM LABS Lab 12/27/20 04:00 Ordered Comprehensive Met abolic Panel AM LA BS Lab 12/26/20 04:00 Ordered Comprehensive Met abolic Panel AM LA BS Lab 12/27/20 04:00 Ordered Magnesium AM LABS Lab 12/26/20 04:00 Ordered Magnesium AM LABS Lab 12/27/20 04:00 Ordered Phosphorus AM LAB S Lab 12/26/20 04:00 Ordered Phosphorus AM LAB S Lab 12/27/20 04:00 Ordered Labs from last 24 hours 12/25/20 12/25/20 12/25/20 06:32 05:16 05:16 WBC 7.8 RBC 4.43 Hgb 12.3 Hct 37.6 MCV 84.9 MCH 27.8 L MCHC 32.7 RDW 13.5 Plt Count 487 H MPV 8.5 Neut % (Auto) 77.0 Lymph % (Auto) 15.0 [place] % (Auto) 7.0 Eos % (Auto) 0.3 Baso % (Auto) 0.3 Neut # (Auto) 6.03 Lymph # (Auto) 1.2 [place] # (Auto) 0.6 Eos # (Auto) 0.0 Baso # (Auto) 0.0 Nucleated RBC % (a uto) 0 Nucleated RBCs # 0.0 Specimen Type Sample Site ABG pH ABG pCO2 ABG pO2 ABG HCO3 ABG O2 Saturation ABG Base Excess Steve Test A-a O2 Gradient Hematocrit Hgb O2 Saturation Carboxyhemoglobin Methemoglobin Total Hemoglobin Sodium 134 L Potassium 3.5 Glucose 161 H Ionized Calcium O2 Delivery Device FiO2 Doctor Of Podiatric Medicine ID Chloride 98 Carbon Dioxide 21 L Anion Gap 18.5 BUN 11 Creatinine 0.9 GFR Calculation 68.7 L POC Glucose 183 H Calculated Osmolal ity 281 L Calcium 8.5 Phosphorus 2.9 Magnesium 1.7 Total Bilirubin 0.4 AST 17 ALT 13 Alkaline Phosphata se 128 H Troponin T Baselin e Troponin T 120 Min [place] Delta Troponin T Troponin T Hi Sens 6Hr Troponin T Hi Sens 6Hr Delta Total Protein 7.0 Albumin 3.7 Globulin 3.3 Lipase Procalcitonin 0.05 TSH HCG, Qual Urine Color Urine Appearance Urine pH Ur Specific Gravit y Urine Protein Urine Glucose (UA) Urine Ketones Urine Blood Urine Nitrate Urine Bilirubin Urine Urobilinogen Ur Leukocyte Estephania ase Urine RBC Urine WBC Ur Squamous Epith Cells Amorphous Sediment Urine Bacteria Urine Opiates Scre en Ur Barbiturates Sc reen Ur Phencyclidine S crn Ur Amphetamines Sc reen U Benzodiazepines Scrn Urine Cocaine Scre en U Marijuana (THC) Screen Ethyl Alcohol 12/24/20 12/24/20 12/24/20 20:27 19:32 18:48 WBC RBC Hgb Hct MCV MCH MCHC RDW Plt Count MPV Neut % (Auto) Lymph % (Auto) [place] % (Auto) Eos % (Auto) Baso % (Auto) Neut # (Auto) Lymph # (Auto) [place] # (Auto) Eos # (Auto) Baso # (Auto) Nucleated RBC % (a uto) Nucleated RBCs # Specimen Type Sample Site ABG pH ABG pCO2 ABG pO2 ABG HCO3 ABG O2 Saturation ABG Base Excess Steve Test A-a O2 Gradient Hematocrit Hgb O2 Saturation Carboxyhemoglobin Methemoglobin Total Hemoglobin Sodium Potassium Glucose Ionized Calcium O2 Delivery Device FiO2 Doctor Of Podiatric Medicine ID Chloride Carbon Dioxide Anion Gap BUN Creatinine GFR Calculation POC Glucose 189 H 197 H Calculated Osmolal ity Calcium Phosphorus Magnesium Total Bilirubin AST ALT Alkaline Phosphata se Troponin T Baselin e Troponin T 120 Min [place] Delta Troponin T Troponin T Hi Sens 6Hr 36.29 H Troponin T Hi Sens 6Hr Delta -10.71 L Total Protein Albumin Globulin Lipase Procalcitonin TSH HCG, Qual Urine Color Urine Appearance Urine pH Ur Specific Gravit y Urine Protein Urine Glucose (UA) Urine Ketones Urine Blood Urine Nitrate Urine Bilirubin Urine Urobilinogen Ur Leukocyte Estephania ase Urine RBC Urine WBC Ur Squamous Epith Cells Amorphous Sediment Urine Bacteria Urine Opiates Scre en Ur Barbiturates Sc reen Ur Phencyclidine S crn Ur Amphetamines Sc reen U Benzodiazepines Scrn Urine Cocaine Scre en U Marijuana (THC) Screen Ethyl Alcohol 12/24/20 12/24/20 12/24/20 16:10 16:10 15:05 WBC RBC Hgb Hct MCV MCH MCHC RDW Plt Count MPV Neut % (Auto) Lymph % (Auto) [place] % (Auto) Eos % (Auto) Baso % (Auto) Neut # (Auto) Lymph # (Auto) [place] # (Auto) Eos # (Auto) Baso # (Auto) Nucleated RBC % (a uto) Nucleated RBCs # Specimen Type Sample Site ABG pH ABG pCO2 ABG pO2 ABG HCO3 ABG O2 Saturation ABG Base Excess Steve Test A-a O2 Gradient Hematocrit Hgb O2 Saturation Carboxyhemoglobin Methemoglobin Total Hemoglobin Sodium Potassium Glucose Ionized Calcium O2 Delivery Device FiO2 Doctor Of Podiatric Medicine ID Chloride Carbon Dioxide Anion Gap BUN Creatinine GFR Calculation POC Glucose Calculated Osmolal ity Calcium Phosphorus Magnesium Total Bilirubin AST ALT Alkaline Phosphata se Troponin T Baselin e Troponin T 120 Min [place] Delta Troponin T Troponin T Hi Sens 6Hr Troponin T Hi Sens 6Hr Delta Total Protein Albumin Globulin Lipase Procalcitonin TSH 0.73 HCG, Qual Urine Color Straw Urine Appearance Cloudy Urine pH 5 Ur Specific Gravit y 1.015 Urine Protein 3+ H Urine Glucose (UA) 1+ Urine Ketones 1+ H Urine Blood 2+ H Urine Nitrate Negative Urine Bilirubin Neg Urine Urobilinogen Norm Ur Leukocyte Estephania ase Negative Urine RBC 5-10 H Urine WBC 0-4 H Ur Squamous Epith Cells 25-40 H Amorphous Sediment Not Reportable Urine Bacteria 2+ H Urine Opiates Scre en Negative Ur Barbiturates Sc reen Negative Ur Phencyclidine S crn Negative Ur Amphetamines Sc reen Negative U Benzodiazepines Scrn Negative Urine Cocaine Scre en Negative U Marijuana (THC) Screen Negative Ethyl Alcohol 12/24/20 12/24/20 12/24/20 15:05 13:32 13:32 WBC RBC Hgb Hct MCV MCH MCHC RDW Plt Count MPV Neut % (Auto) Lymph % (Auto) [place] % (Auto) Eos % (Auto) Baso % (Auto) Neut # (Auto) Lymph # (Auto) [place] # (Auto) Eos # (Auto) Baso # (Auto) Nucleated RBC % (a uto) Nucleated RBCs # Specimen Type Sample Site ABG pH ABG pCO2 ABG pO2 ABG HCO3 ABG O2 Saturation ABG Base Excess Steve Test A-a O2 Gradient Hematocrit Hgb O2 Saturation Carboxyhemoglobin Methemoglobin Total Hemoglobin Sodium Potassium Glucose Ionized Calcium O2 Delivery Device FiO2 Doctor Of Podiatric Medicine ID Chloride Carbon Dioxide Anion Gap BUN Creatinine GFR Calculation POC Glucose Calculated Osmolal ity Calcium Phosphorus Magnesium Total Bilirubin AST ALT Alkaline Phosphata se Troponin T Baselin e 47 H Troponin T 120 Min [place] 43.99 H Delta Troponin T -3.01 L Troponin T Hi Sens 6Hr Troponin T Hi Sens 6Hr Delta Total Protein Albumin Globulin Lipase Procalcitonin TSH HCG, Qual Negative Urine Color Urine Appearance Urine pH Ur Specific Gravit y Urine Protein Urine Glucose (UA) Urine Ketones Urine Blood Urine Nitrate Urine Bilirubin Urine Urobilinogen Ur Leukocyte Estephania ase Urine RBC Urine WBC Ur Squamous Epith Cells Amorphous Sediment Urine Bacteria Urine Opiates Scre en Ur Barbiturates Sc reen Ur Phencyclidine S crn Ur Amphetamines Sc reen U Benzodiazepines Scrn Urine Cocaine Scre en U Marijuana (THC) Screen Ethyl Alcohol 12/24/20 12/24/20 12/24/20 13:32 13:32 13:27 WBC 9.4 RBC 4.14 Hgb 11.5 Hct 36.4 L MCV 87.9 MCH 27.8 L MCHC 31.6 RDW 13.9 Plt Count 335 MPV 8.5 Neut % (Auto) 77.8 Lymph % (Auto) 15.5 [place] % (Auto) 5.5 Eos % (Auto) 0.4 Baso % (Auto) 0.4 Neut # (Auto) 7.30 Lymph # (Auto) 1.5 [place] # (Auto) 0.5 Eos # (Auto) 0.0 Baso # (Auto) 0.0 Nucleated RBC % (a uto) 0 Nucleated RBCs # 0.0 Specimen Type Arterial Sample Site Radial, right ABG pH 7.48 H ABG pCO2 30.2 L ABG pO2 91.4 ABG HCO3 22.5 ABG O2 Saturation 98.2 ABG Base Excess -0.2 Steve Test Pos A-a O2 Gradient 2.5 L Hematocrit 38.6 Hgb O2 Saturation 96.6 Carboxyhemoglobin 0.8 Methemoglobin 0.8 Total Hemoglobin 12.6 Sodium 134 L 137.0 Potassium 3.9 4.3 Glucose 188 H 190.0 H Ionized Calcium 1.2 O2 Delivery Device Room air FiO2 21.0 Doctor Of Podiatric Medicine ID glc Chloride 101 Carbon Dioxide 20 L Anion Gap 16.9 BUN 19 Creatinine 1.3 H GFR Calculation 44.9 L POC Glucose Calculated Osmolal ity 285 Calcium 8.6 Phosphorus Magnesium 1.7 Total Bilirubin 0.4 AST 17 ALT 13 Alkaline Phosphata se 117 H Troponin T Baselin e Troponin T 120 Min [place] Delta Troponin T Troponin T Hi Sens 6Hr Troponin T Hi Sens 6Hr Delta Total Protein 6.4 L Albumin 3.7 Globulin 2.7 Lipase 22 Procalcitonin TSH HCG, Qual Urine Color Urine Appearance Urine pH Ur Specific Gravit y Urine Protein Urine Glucose (UA) Urine Ketones Urine Blood Urine Nitrate Urine Bilirubin Urine Urobilinogen Ur Leukocyte Estephania ase Urine RBC Urine WBC Ur Squamous Epith Cells Amorphous Sediment Urine Bacteria Urine Opiates Scre en Ur Barbiturates Sc reen Ur Phencyclidine S crn Ur Amphetamines Sc reen U Benzodiazepines Scrn Urine Cocaine Scre en U Marijuana (THC) Screen Ethyl Alcohol < 10 Vitals: Last Vital Signs Temp 98.9 F 12/25/20 07:55 Pulse 79 12/25/20 08:34 Resp 18 12/25/20 07:55 BP 152/68 12/25/20 09:38 Pulse Ox 95 12/25/20 08:34 Discharge Plan Discharge Patient Disposition: Home Condition: Stable Prescriptions: New metoclopramide HCl [Reglan] 5 mg tablet 5 mg PO Q8H PRN (Reason: nausea and vomiting) 30 Days Qty: 60 RF: 0 lisinopril 20 mg tablet 20 mg PO DAILY 30 Days Qty: 30 RF: 0 sulfamethoxazole-trimethoprim [Bactrim DS] 800-160 mg tablet 1 tab PO Q12H 4 Days Qty: 8 RF: 0 Continued Lantus Solostar U-100 Insulin 100 unit/mL (3 mL) insulin pen 5 unit SUBCUT BEDTIME RF: 0 promethazine 25 mg tablet 25 mg PO Q6H PRN (Reason: nausea and vomiting) Qty: 30 RF: 0 insulin lispro 100 unit/mL Insulin Pen See Rx Instructions .ROUTE .COMPLEX RF: 0 carvedilol 12.5 mg Tablet 12.5 mg PO BID Qty: 60 RF: 0 amlodipine 10 mg Tablet 10 mg PO DAILY Qty: 30 RF: 0 gabapentin 100 mg capsule 200 mg PO Q12H Qty: 60 RF: 0 Discharge Orders: Discharge Order (Routine); Ordered 12/25/20 Ordered By: Randy Chung Discharge Diet: Diabetic Discharge Activity: Resume usual activity Patient Instructions: Opioid Safety Activity Restrictions/Additional Instructions: -Follow-up with primary care next week -Reglan should be used as needed for nausea, vomiting for diabetic gastroparesis, not recommended use beyond 12 weeks, there is a risk of extrapyramidal symptoms, if you are to have muscle spasms or tremors go to the emergency room Discharge Attestations Time Spent in Discharge Care*: less than 30 min Status at Discharge: Cognitive status at discharge: cognitively intact, Behavioral status at discharge: cooperative, Quality Metrics Clinical Quality Measures During this hospital stay, did patient experience: None 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 Code Acute Chg FW DC note Diagnoses Intractable vomiting R11.2 Nausea presence: with nausea Vomiting type: unspecified Abdominal pain R10.84 Abdominal location: generalized Diabetes mellitus type 1 E10.69 Diabetes mellitus complication status: with other specified complication Acute kidney injury N17.9
[2020-12-25 11:25] LABS: Glucose Point of Care 119 mg/dL (70-110)
== END 2020-12-25 15:10 | disposition home or self-care (01) ==
LOC: ER 15:58 → MEDSURG 17:08
PROVIDERS: Admitting Provider Family Medicine; Emergency Provider Emergency Medicine; Visit Provider Family Medicine
DX: R11.2 Nausea with vomiting, unspecified (principal); R10.84 Generalized abdominal pain; E10.69 Type 1 diabetes mellitus with other specified complication; N17.9 Acute kidney failure, unspecified; E10.21 Type 1 diabetes mellitus with diabetic nephropathy; E10.43 Type 1 diabetes mellitus with diabetic autonomic (poly)neuropathy; I25.10 Atherosclerotic heart disease of native coronary artery without angina pectoris; Z95.5 Presence of coronary angioplasty implant and graft; Z79.4 Long term (current) use of insulin; E10.22 Type 1 diabetes mellitus with diabetic chronic kidney disease; I12.9 Hypertensive chronic kidney disease with stage 1 through stage 4 chronic kidney disease, or unspecified chronic kidney disease; N18.2 Chronic kidney disease, stage 2 (mild); E78.5 Hyperlipidemia, unspecified; Z87.891 Personal history of nicotine dependence
CPT/HCPCS: 36415; 36416; 36600; 71045; 74176; 80051; 80053; 80306; 80307; 81001; 82330; 82805; 82962; 83690; 83735; 84100; 84145; 84443; 84484; 84703; 85025; 87040; 93005; 96361; 96365; 96367; 96372; 96375; 96376; 99285; C9113; G0378; J1200; J1630; J1650; J1815 ×2; J2060; J2405; J2765; J3490; J7030

== ENCOUNTER 2020-12-27 11:39 | Inpatient (IN) | payer MEDICAID, SELFPAY ==
[2020-12-27 11:47] VITALS: BP 158/88; PULSE 114; RESP 16; TEMP 36.6; O2SAT 98; BMI 29.5
--- NOTE | 2020-12-27 12:00 | XRR_ITS ---
PROCEDURE INFORMATION: Exam: XR Chest Exam date and time: 12/27/2020 12:18 PM Age: 40 years old Clinical indication: Other: Reduced breath sounds; Prior surgery; Surgery type: Stents TECHNIQUE: Imaging protocol: XR of the chest. Views: 1 view. COMPARISON: CR (CHEST, ) 12/24/2020 1:24 PM FINDINGS: Lungs: Unremarkable. No consolidation. Pleural spaces: Unremarkable. No pleural effusion. No pneumothorax. Heart/Mediastinum: Unremarkable. No cardiomegaly. Bones/joints: Unremarkable. XR/XR chest 1V portable [id number] IMPRESSION: No acute findings.
--- NOTE | 2020-12-27 12:00 | CTR_ITS ---
PROCEDURE INFORMATION: Exam: CT Abdomen And Pelvis With Contrast Exam date and time: 12/27/2020 12:59 PM Age: 40 years old Clinical indication: Abdominal pain; Additional info: Low back pain; Right flank pain; Vomiting; Abd pain TECHNIQUE: Imaging protocol: Computed tomography of the abdomen and pelvis with contrast. Radiation optimization: All CT scans at this facility use at least one of these dose optimization techniques: automated exposure control; mA and/or kV adjustment per patient size (includes targeted exams where dose is matched to clinical indication); or iterative reconstruction. Contrast material: VISI; Contrast volume: 95 ml; Contrast route: INTRAVENOUS (IV); COMPARISON: CT kidney stone [id number] 12/24/2020 2:18 PM RADIATION DOSE METRICS: Total DLP (mGy-cm): 2027.47 FINDINGS: Liver: Normal. No mass. Gallbladder and bile ducts: Cholecystectomy. No obstruction of biliary system. Pancreas: Normal. No ductal dilation. Spleen: Normal. No splenomegaly. Adrenal glands: Normal. No mass. Kidneys and ureters: Normal. No hydronephrosis. Stomach and bowel: Unremarkable. No obstruction. No mucosal thickening. Appendix: No evidence of appendicitis. Intraperitoneal space: Unremarkable. No free air. No significant fluid collection. Vasculature: Unremarkable. No abdominal aortic aneurysm. Lymph nodes: Unremarkable. No enlarged lymph nodes. Urinary bladder: Unremarkable as visualized. Reproductive: Unremarkable as visualized. Bones/joints: Unremarkable. No acute fracture. Mild superior vertebral end plate concavity at T12. Soft tissues: Unremarkable. CT/CT abdomen pelvis w con* [id number] IMPRESSION: 1. No acute findings in the abdomen or pelvis. 2. No changes from comparison. Radiation Dose CTDIVOL = (mGy): DLP = 2027.47 (mGy-cm)
--- NOTE | 2020-12-27 12:07 | ECG_ITS ---
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 Measurements Intervals [place] Rate: 98 P: -12 [place]: 115 QRS: -5 QRSD: 109 T: 57 QT: 359 QTc: 460 Interpretive Statements SINUS RHYTHM WITH SHORT [place] INTERVAL Compared to ECG 12/24/2020 14:58:51 Short [place] interval now present Ventricular premature complex(es) no longer present Electronically Signed On 12-27-2020 19:23:20 CDT by Joseluis Tracy M.D. [id number]
[2020-12-27] MEDS: sodium chloride 0.9% 1,000 ML 999 ML IV (12:24)
[2020-12-27] MEDS: metoclopramide 5 mg/mL SDV 2 mL 10 MG IVP (12:32)
[2020-12-27 12:43] LABS: Glucose Point of Care 214 mg/dL (70-110)
[2020-12-27] MEDS: haloperidol inj 5 mg/mL INJ 1 mL 2.5 MG IM (12:56)
--- NOTE | 2020-12-27 13:20 | W.ED.BACK ---
HPI - Back Pain/Injury General: Chief Complaint: Back Pain/Injury Stated Complaint: chronic back pain, Pain Med Request Time Seen by Provider: 12/27/20 11:47 History of Present Illness: HPI Narrative: The patient is a 40-year-old female with past medical history diabetes, with significant complications, nephropathy, left BKA, gastroparesis, retinopathy, CKD, CAD. She is seen frequently for episodes of low back pain and vomiting. She comes in today again complaining of low back pain and vomiting. EMS gave fentanyl and Zofran prior to arrival with no improvement of her vomiting. She was discharged from the hospital 2 days ago for the same complaint and says she did not fill her medications. MD elicited complaint: back pain Onset (ago): day(s) (2) Timing: constant Severity: severe Similar Symptoms Previously: Yes Quality: sharp Location: lumbar spine Radiation: none Exacerbating factors: movement Relieving factors: none Associated symptoms: Reports nausea and vomiting; Deny difficulty walking, fatigue or urinary urgency Review of Systems General: Reports: 10 or more systems reviewed and unremarkable except in HPI and below Const: Denies: fatigue Eyes: Denies: change in vision, blurry vision or eye redness ENMT: Denies: throat pain, swelling of lips/tongue, ear or mastoid pain or nasal congestion Card: Denies: chest pain, palpitations, irregular heart rhythm, edema, dyspnea on exertion or orthopnea Resp: Denies: dyspnea, productive cough or non-productive cough GI: Reports: nausea and vomiting : Denies: flank pain, difficulty voiding, urinary frequency or urinary urgency Musc: Reports: back pain; Denies: neck pain, extremity pain, joint pain, joint redness, limited range of motion or muscle weakness Skin/Breast: Denies: rash, pruritus, erythema, skin pain or skin tenderness Neuro: Denies: headache(s), numbness in extremities, weakness in extremities, sensory changes, difficulty walking, dizziness, confusion or Slurred speech present Psych: Denies: anxiety or depression Endo: Denies: polyuria All/Imm: Denies: urticaria, throat swelling or tongue swelling PFSH ED PFSH: Medical History (Updated 12/27/20 @ 17:35 by Karan Gracia MD) Back pain CKD (chronic kidney disease) stage 2, GFR 60-89 ml/min -secondary to diabetic nephropathy -baseline Cr is around 1.0 Coronary artery disease -hx of CAD s/p stenting Diabetes mellitus type 1 Diabetic foot ulcer -noted on exam -Podiatry consult by Dr. Sin appreciated -arterial studies ordered, noted elevated inflammatory markers (CRP-8.0,ESR-62, thrombocytosis-resolved) -empiric IV antibiotics (Zosyn); add oral clindamycin for broader spectrum coverage including MRSA -MRI findings highly suspicious for osteomyelitis though limited by lack of contrast; arterial studies showing normal EPIFANIO -wound cx prelim is polymicrobial, gram stain grew rare GPC and GPRs. Wound cx sent from OR pending -blood cx prelim negative -suspicious for osteomyelitis on clinical evaluation; likely chronic -LLE elevation -POD # 2 s/p wound excision and skin flap advancement for primary closure of right plantar forefoot, second toe amputation at PIP right second toe Diabetic gastroparesis -secondary to DM type I Diabetic infection of right foot DKA (diabetic ketoacidoses) Failure of outpatient treatment Foot osteomyelitis, right Gastroparesis Hyperlipidemia Hypertension Hypertension Hypokalemia Intractable nausea and vomiting Leukocytosis Non-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 Osteomyelitis of foot, right, acute Type 1 diabetes mellitus -noted hx of DM type I complicated by nephropathy and neuropathy Surgical History Below-knee amputation of left lower extremity H/O exploratory laparotomy x 3 History of amputation of right forefoot Hx of cholecystectomy Previous section x 3 S/P coronary artery stent placement x 1 S/P percutaneous endoscopic gastrostomy (PEG) tube placement Status post amputation Family History Unknown Diabetes extensive, type II Other CHF (congestive heart failure) Social History Smoking and tobacco status: former smoker Quit status (tobacco): has quit using tobacco Former quit date comment: 15 yrs ago Alcohol intake: former Former alcohol use details: 15 yrs ago Household members: spouse Marital status: Sexually active: Yes (1, ) Female Reproductive History: Date of last menstrual period: 11/30/20 Physical Exam Const: COMMON NORMALS: patient oriented x3 and alert GENERAL APPEARANCE: in distress (cannot hold still, vomiting, says she is in pain) ORIENTATION/CONSCIOUSNESS: Yes oriented to person, Yes oriented to place and Yes oriented to time HENMT: COMMON NORMALS: normocephalic, external ears normal and Normal external nose present HEAD & SCALP: normal to inspection and normocephalic NOSE: Normal external nose present EXTERNAL EAR: Yes external ears normal MOUTH: Normal oral and palatal mucosa present THROAT: posterior oropharynx normal Eye: COMMON NORMALS: Equal, round and reactive pupils present and EOMs intact bilaterally GENERAL EYE: appearance normal, both eyes and all related structures PUPIL: Yes Equal, round and reactive pupils present Neck/C-Spine: COMMON NORMALS: full ROM, no lymphadenopathy, no meningeal signs and no JVD GENERAL: Yes normal visual inspection Lymph: LYMPHATIC: no lymphadenopathy noted Chest: COMMONS NORMALS: normal inspection of the chest and normal palpation of entire chest wall Resp: COMMON NORMALS: normal respiratory effort, No retractions, No use of accessory muscles, clear to auscultation bilaterally and percussion normal EFFORT & INSPECTION: Yes able to speak in complete sentences AUSCULTATION: clear to auscultation bilaterally PERCUSSION: percussion normal Cardio: COMMON NORMALS: no JVD, regular rate, regular rhythm, S1 normal heart sound present, S2 normal heart sound present and Peripheral pulses 2+ throughout RATE: regular rate RHYTHM: regular rhythm HEART SOUNDS: S1 normal heart sound present and S2 normal heart sound present PERIPHERAL PULSES: Peripheral pulses 2+ throughout GI: COMMON NORMALS: Normal to inspection, nondistended, normoactive bowel sounds present, Soft to palpation, non-tender and no masses INSPECTION: Yes normal to inspection PALPATION: Yes Soft to palpation : COMMON NORMALS: Yes no CVA tenderness BLADDER/KIDNEY EXAM: Yes no CVA tenderness Back/Pelvis: COMMON NORMALS: no CVA tenderness, thoracic and lumbar spine normal to inspection, no thoracic nor lumbar tenderness and thoraco-lumbar ROM normal Extremity: COMMON NORMALS: normal to inspection, full ROM, capillary refill normal, no joint enlargement and no pedal edema GENERAL: Yes normal exam except as noted Neuro: COMMON NORMALS: patient oriented x3, CN's II-XII intact bilaterally, moves all extremities, no focal motor deficits, no sensory deficits noted and gait normal SENSORIUM/ORIENTATION: Yes alert, Yes oriented to person, Yes oriented to place and Yes oriented to time MENINGEAL SIGNS: Yes no meningeal signs Psych: COMMON NORMALS: mental status grossly normal, Normal thought process present, normal affect and speech normal APPEARANCE: Yes unkempt ATTITUDE: Yes uncooperative and Yes agitated SPEECH: Yes normal speech THOUGHT PROCESS: Normal thought process present Skin: COMMON NORMALS: no rashes or lesions noted GENERAL SKIN EXAM: no rashes or lesions noted Course Vital Signs: Vital signs: Vital Signs Temperature 98 F 12/27/20 11:47 Pulse Rate 107 H 12/27/20 16:19 Respiratory Rate 16 12/27/20 16:19 Blood Pressure 194/108 12/27/20 16:19 Pulse Oximetry 99 12/27/20 16:19 MDM - Back Pain/Injury MDM Narrative: Medical decision making narrative: Patient comes to the ER with another episode of diabetic gastroparesis only 2 days after she was discharged. She was given multiple antiemetics with only minimal improvement in her symptoms and required narcotic pain medication. Discussed with Dr. Seymour who accepts for overnight observation. Lab Data: Labs: Lab Results 12/27/20 12/27/20 12/27/20 Range/Units 12:36 13:40 13:40 WBC 10.9 H (4.0-10.0) 10^3/ uL RBC 4.31 (4.1-5.3) 10^6/u L Hgb 11.9 (11.5-15.3) g/dL Hct 36.9 L (37.0-47.0) % MCV 85.6 (81-99) fL MCH 27.6 L (28.0-34.0) pg MCHC 32.2 (30.0-36.0) g/dL RDW 13.2 (12.1-15.1) % Plt Count 478 H (130-400) 10^3/c mm MPV 8.8 (7.4-10.4) fL Neut % (Auto) 84.7 % Lymph % (Auto) 10.0 % [place] % (Auto) 4.0 % Eos % (Auto) 0.2 % Baso % (Auto) 0.5 % Neut # (Auto) 9.23 H (1.8-7.7) 10^3/u L Lymph # (Auto) 1.1 (0.8-4.8) 10^3/u L [place] # (Auto) 0.4 (0.2-0.9) 10^3/u L Eos # (Auto) 0.0 (0.0-0.8) 10^3/u L Baso # (Auto) 0.1 (0.0-0.1) 10^3/u L Nucleated RBC % (a uto) 0 % Nucleated RBCs # 0.0 /100WBC Sodium 135 L (136-145) mmol/L Potassium 3.6 (3.5-5.1) mmol/L Chloride 101 (98-107) mmol/L Carbon Dioxide 19 L (22-29) mmol/L Anion Gap 18.6 (5-19) BUN 12 (6-20) mg/dL Creatinine 1.1 H (0.5-0.9) mg/dL GFR Calculation 54.5 L (90-130) mL/min Glucose 214 H (65-115) mg/dL POC Glucose 214 H (70-110) mg/dL Calculated Osmolal ity 286 (285-295) mOsm/k g Lactate (0.5-2.2) mmol/L Calcium 8.7 (8.5-10.5) mg/dL Total Bilirubin 0.5 (0.15-1.2) mg/dL AST 17 (0-32) U/L ALT 14 (0-33) U/L Alkaline Phosphata se 121 H (35-105) IU/L Total Protein 7.0 (6.6-8.7) g/dL Albumin 3.7 (3.5-5.2) g/dL Globulin 3.3 (1.3-4.6) g/dL Lipase 26 (13-60) U/L HCG, Qual (Negative) Urine Color (Yellow) Urine Appearance (CLEAR) Urine pH (5-7) Ur Specific Gravit y (1.005-1.030) Urine Protein (Negative) Urine Glucose (UA) (Normal) Urine Ketones (Negative) Urine Blood (Negative) Urine Nitrate (Negative) Urine Bilirubin (Negative) Urine Urobilinogen (Negative) mg/dL Ur Leukocyte Estephania ase (Negative) Urine RBC (0-2) /hpf Urine WBC (0-5) /hpf Ur Squamous Epith Cells (0-5) /hpf Amorphous Sediment Urine Bacteria (NONE) /hpf Urine Mucus /hpf 12/27/20 12/27/20 12/27/20 Range/Units 13:40 13:40 14:22 WBC (4.0-10.0) 10^3/ uL RBC (4.1-5.3) 10^6/u L Hgb (11.5-15.3) g/dL Hct (37.0-47.0) % MCV (81-99) fL MCH (28.0-34.0) pg MCHC (30.0-36.0) g/dL RDW (12.1-15.1) % Plt Count (130-400) 10^3/c mm MPV (7.4-10.4) fL Neut % (Auto) % Lymph % (Auto) % [place] % (Auto) % Eos % (Auto) % Baso % (Auto) % Neut # (Auto) (1.8-7.7) 10^3/u L Lymph # (Auto) (0.8-4.8) 10^3/u L [place] # (Auto) (0.2-0.9) 10^3/u L Eos # (Auto) (0.0-0.8) 10^3/u L Baso # (Auto) (0.0-0.1) 10^3/u L Nucleated RBC % (a uto) % Nucleated RBCs # /100WBC Sodium (136-145) mmol/L Potassium (3.5-5.1) mmol/L Chloride (98-107) mmol/L Carbon Dioxide (22-29) mmol/L Anion Gap (5-19) BUN (6-20) mg/dL Creatinine (0.5-0.9) mg/dL GFR Calculation (90-130) mL/min Glucose (65-115) mg/dL POC Glucose (70-110) mg/dL Calculated Osmolal ity (285-295) mOsm/k g Lactate 1.6 (0.5-2.2) mmol/L Calcium (8.5-10.5) mg/dL Total Bilirubin (0.15-1.2) mg/dL AST (0-32) U/L ALT (0-33) U/L Alkaline Phosphata se (35-105) IU/L Total Protein (6.6-8.7) g/dL Albumin (3.5-5.2) g/dL Globulin (1.3-4.6) g/dL Lipase (13-60) U/L HCG, Qual Negative (Negative) Urine Color Yellow (Yellow) Urine Appearance Clear (CLEAR) Urine pH 6 (5-7) Ur Specific Gravit y 1.015 (1.005-1.030) Urine Protein 3+ H (Negative) Urine Glucose (UA) 2+ (Normal) Urine Ketones 1+ H (Negative) Urine Blood 2+ H (Negative) Urine Nitrate Negative (Negative) Urine Bilirubin Neg (Negative) Urine Urobilinogen 1 H (Negative) mg/dL Ur Leukocyte Estephania ase Negative (Negative) Urine RBC 0-4 H (0-2) /hpf Urine WBC 0-4 H (0-5) /hpf Ur Squamous Epith Cells 0-4 H (0-5) /hpf Amorphous Sediment Not Reportable Urine Bacteria 1+ H (NONE) /hpf Urine Mucus 1+ /hpf Discharge Plan Discharge Patient Disposition: Placed in Observation Clinical Impression: Intractable vomiting 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 Code ED Medical Scientific Officer for Chg Fwd Exam Comprehensive
[2020-12-27 13:56] VITALS: RESP 20; O2SAT 98
[2020-12-27] MEDS: promethazine 25 mg/mL SDV 1 mL IM (13:56)
[2020-12-27] MEDS: HYDROmorphone 1 mg/mL INJ 1 mL IVP (13:56)
[2020-12-27 14:07] LABS: Basophils # 0.1 10^3/uL (0.0-0.1); Basophils % 0.5 %; Eosinophils % 0.2 %; Hematocrit 36.9 % (37.0-47.0); Hemoglobin 11.9 g/dL (11.5-15.3); Lymphocytes # 1.1 10^3/uL (0.8-4.8); Mean Corpuscular HGB Conc 32.2 g/dL (30.0-36.0); Mean Corpuscular Hemoglobin 27.6 pg (28.0-34.0); Mean Corpuscular Volume 85.6 fL (81-99); Mean Platelet Volume 8.8 fL (7.4-10.4); Monocytes # 0.4 10^3/uL (0.2-0.9); Neutrophils # 9.23 10^3/uL (1.8-7.7); Neutrophils % 84.7 %; Nucleated Red Blood Cells % 0 %; Platelet Count 478 10^3/cmm (130-400); Red Blood Count 4.31 10^6/uL (4.1-5.3); Red Cell Distribution Width 13.2 % (12.1-15.1); White Blood Count 10.9 10^3/uL (4.0-10.0)
[2020-12-27 14:25] LABS: Lactate (Lactic Acid level) 1.6 mmol/L (0.5-2.2)
[2020-12-27 14:26] LABS: Alanine Aminotransferase 14 U/L (0-33); Albumin Level 3.7 g/dL (3.5-5.2); Alkaline Phosphatase 121 IU/L (35-105); Aspartate Amino Transferase 17 U/L (0-32); Blood Urea Nitrogen 12 mg/dL (6-20); Calcium 8.7 mg/dL (8.5-10.5); Carbon Dioxide 19 mmol/L (22-29); Chloride 101 mmol/L (98-107); Globulin 3.3 g/dL (1.3-4.6); Glomerular Filtration Rate 54.5 mL/min (90-130); Glucose 214 mg/dL (65-115); Lipase 26 U/L (13-60); Osmolality Calculated 286 mOsm/kg (285-295); Sodium 135 mmol/L (136-145); Total Bilirubin 0.5 mg/dL (0.15-1.2)
[2020-12-27 14:35] LABS: Anion Gap 18.6 (5-19); Potassium 3.6 mmol/L (3.5-5.1)
[2020-12-27 14:44] LABS: HCG, Serum Qual Negative (Negative)
[2020-12-27 15:39] LABS: Add Urine Microscopic? YES; Bacteria Urine 1+ /hpf; Bilirubin Urine Neg (Negative); Blood Urine 2+ (Negative); Glucose Urine UA 2+ (Normal); Ketones Urine 1+ (Negative); Leukocyte Esterase Urine Negative (Negative); Mucus Urine 1+ /hpf; Nitrate Urine Negative (Negative); Protein Urine 3+ (Negative); RBC Urine 0-4 /hpf (0-2); Specific Gravity, Urine 1.015 (1.005-1.030); Squamous Epithelial Cell Urine 0-4 /hpf (0-5); Urine Appearance Clear (CLEAR); Urine Color Yellow (Yellow); Urobilinogen Urine 1 mg/dL (Negative); WBC Urine 0-4 /hpf (0-5); pH Urine 6 (5-7)
[2020-12-27] MEDS: iodixanol 320 mg/mL 100mL Btl IV (15:45)
[2020-12-27 16:19] VITALS: BP 194/108; PULSE 107; RESP 16; O2SAT 99
--- NOTE | 2020-12-27 18:06 | PM.HP ---
Providers/Chief Complaint Admitting Physician: Jessica Rubio MD Chief Complaint: nausea, vomiting, abdominal pain, back pain History of Present Illness Cherrie Solomon is a 40 year old female with type 1 diabetes mellitus who presented with nausea, vomiting, abdominal pain and back pain. She has a history of repeated admissions for similar symptoms felt secondary to gastroparesis. Since November 28, she has had 6 CAT scans of her abdomen and pelvis when presenting. Findings have been unremarkable but her symptoms have persisted. She is usually here for a day and then discharged. She has had a few episodes of DKA. Last admission was a couple of days ago. She was discharged on December 25. She did not get any of the medications prescribed filled. She does not have any medicines at home by her report except for insulin therapy which she gets [id number]. She has financial difficulties feeling medications. She is a known diabetic since the age of 15. Prior to her starting to come here about a year ago she was frequently at [facility]. She denies chronic use of pain medications, smoking, alcohol use. She thinks the Dilaudid probably helps her more than anything. She reports regular bowel movements. Denied diarrhea or constipation. Vomitus is bilious in nature. No blood in her vomitus or blood in her stools. Review of Systems Const: Reports: change in appetite; Denies: fever(s), chills or change in weight Eyes: Denies: change in vision ENMT: Denies: throat pain or nasal congestion Card: Denies: chest pain, palpitations or edema Resp: Denies: dyspnea, productive cough or non-productive cough GI: Reports: abdominal pain, nausea and vomiting; Denies: diarrhea, constipation, hematochezia or melena : Denies: flank pain, difficulty voiding, urinary frequency or hematuria Musc: Reports: back pain Skin/Breast: Denies: rash, pruritus or sores Neuro: Denies: headache(s), numbness in extremities, weakness in extremities or difficulty walking Psych: Denies: anxiety or depression Keith/Lymph: Denies: easy bruising or easy bleeding Medications/Allergies Home Medications Medication Instructions Recorded Confirmed Last Taken Type insulin lispro See Rx Instructions .ROUTE .COMPLEX 12/13/20 12/27/20 12/21/20 History Lantus Solostar U-100 Insulin 5 unit SUBCUT BEDTIME 0512/27/20 12/23/20 History Allergies Allergy/AdvReac Type Severity Reaction Status Date / Time morphine Allergy ALGY-Difficulty Verified 12/24/20 13:40 Breathing Additional Medication Information I personally reviewed home medication list and medications received day of admission thus far. PFSH Acute PFSH: Medical History (Updated 12/27/20 @ 20:44 by Jessica Rubio MD) Back pain CKD (chronic kidney disease) stage 2, GFR 60-89 ml/min baseline Cr is around 1.0 Coronary artery disease hx of stenting Diabetes mellitus type 1 diagnosed age 15, history of peripheral neuropathy, gastroparesis and nephropathy Diabetic foot ulcer s/p surgical intervention and eventual amputation Diabetic gastroparesis Diabetic ophthalmopathy DKA (diabetic ketoacidoses) Foot osteomyelitis, right Hyperlipidemia Hypertension Non-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 Surgical History Below-knee amputation of left lower extremity H/O exploratory laparotomy x 3 History of amputation of right forefoot Hx of cholecystectomy Previous section x 3 S/P coronary artery stent placement x 1 S/P percutaneous endoscopic gastrostomy (PEG) tube placement Status post amputation Family History Unknown Diabetes extensive, type II Other CHF (congestive heart failure) Social History Smoking and tobacco status: former smoker Quit status (tobacco): has quit using tobacco Former quit date comment: 15 yrs ago Alcohol intake: former Former alcohol use details: 15 yrs ago Household members: spouse Marital status: Sexually active: Yes (1, ) Female Reproductive History: Date of last menstrual period: 11/30/20 Vitals/I&O/Wt Last Vital Signs Temp 98 F 12/27/20 11:47 Pulse 107 H 12/27/20 16:19 Resp 16 12/27/20 16:19 BP 194/108 12/27/20 16:19 Pulse Ox 99 12/27/20 16:19 Weight last 48 hrs Weight 90.718 kg Physical Exam Narrative: EXAM NARRATIVE: Constitutional: Chronic ill appearance, looks uncomfortable, several basins around the room with yellow or green emesis, no blood noted HEENT: Pupils are equally bilaterally, can see shadows and lights but unable to discern accurately number of fingers being held, nasopharynx is clear, oropharynx with fair dentition, moist mucous membranes, emesis on her face Neck: Supple Respiratory: Clear to auscultation bilaterally Cardiovascular: Regular but tachycardic rhythm, diminished but equal peripheral pulses Abdomen: Soft, generalized tenderness, no flank pain : No Riojas catheter Extremities: Amputation of a couple of toes on the right foot, left BKA. Palpation of back without focal area of tenderness. Skin: Several wounds to remaining toes on right foot in different stages, most lateral wound with scant oozing of serous fluid, no purulence Neuro: Speech clear, moves all extremities Psych: Restless Data : 12/27/20 13:40 12/27/20 13:40 Other data: Laboratory Last Values WBC 10.9 10^3/uL (4.0-10.0) H 12/27/20 13:40 RBC 4.31 10^6/uL (4.1-5.3) 12/27/20 13:40 Hgb 11.9 g/dL (11.5-15.3) 12/27/20 13:40 Hct 36.9 % (37.0-47.0) L 12/27/20 13:40 MCV 85.6 fL (81-99) 12/27/20 13:40 MCH 27.6 pg (28.0-34.0) L 12/27/20 13:40 MCHC 32.2 g/dL (30.0-36.0) 12/27/20 13:40 RDW 13.2 % (12.1-15.1) 12/27/20 13:40 Plt Count 478 10^3/cmm (130-400) H 12/27/20 13:40 MPV 8.8 fL (7.4-10.4) 12/27/20 13:40 Neut % (Auto) 84.7 % 12/27/20 13:40 Lymph % (Auto) 10.0 % 12/27/20 13:40 Hemphill % (Auto) 4.0 % 12/27/20 13:40 Eos % (Auto) 0.2 % 12/27/20 13:40 Baso % (Auto) 0.5 % 12/27/20 13:40 Neut # (Auto) 9.23 10^3/uL (1.8-7.7) H 12/27/20 13:40 Lymph # (Auto) 1.1 10^3/uL (0.8-4.8) 12/27/20 13:40 Hemphill # (Auto) 0.4 10^3/uL (0.2-0.9) 12/27/20 13:40 Eos # (Auto) 0.0 10^3/uL (0.0-0.8) 12/27/20 13:40 Baso # (Auto) 0.1 10^3/uL (0.0-0.1) 12/27/20 13:40 Nucleated RBC % (auto) 0 % 12/27/20 13:40 Nucleated RBCs # 0.0 /100WBC 12/27/20 13:40 Sodium 135 mmol/L (136-145) L 12/27/20 13:40 Potassium 3.6 mmol/L (3.5-5.1) 12/27/20 13:40 Chloride 101 mmol/L (98-107) 12/27/20 13:40 Carbon Dioxide 19 mmol/L (22-29) L 12/27/20 13:40 Anion Gap 18.6 (5-19) 12/27/20 13:40 BUN 12 mg/dL (6-20) 12/27/20 13:40 Creatinine 1.1 mg/dL (0.5-0.9) H 12/27/20 13:40 GFR Calculation 54.5 mL/min (90-130) L 12/27/20 13:40 Glucose 214 mg/dL (65-115) H 12/27/20 13:40 POC Glucose 214 mg/dL (70-110) H 12/27/20 12:36 Calculated Osmolality 286 mOsm/kg (285-295) 12/27/20 13:40 Lactate 1.6 mmol/L (0.5-2.2) 12/27/20 13:40 Calcium 8.7 mg/dL (8.5-10.5) 12/27/20 13:40 Total Bilirubin 0.5 mg/dL (0.15-1.2) 12/27/20 13:40 AST 17 U/L (0-32) 12/27/20 13:40 ALT 14 U/L (0-33) 12/27/20 13:40 Alkaline Phosphatase 121 IU/L (35-105) H 12/27/20 13:40 Total Protein 7.0 g/dL (6.6-8.7) 12/27/20 13:40 Albumin 3.7 g/dL (3.5-5.2) 12/27/20 13:40 Globulin 3.3 g/dL (1.3-4.6) 12/27/20 13:40 Lipase 26 U/L (13-60) 12/27/20 13:40 HCG, Qual Negative (Negative) 12/27/20 13:40 Urine Color Yellow (Yellow) 12/27/20 14:22 Urine Appearance Clear (CLEAR) 12/27/20 14:22 Urine pH 6 (5-7) 12/27/20 14:22 Ur Specific Chandler 1.015 (1.005-1.030) 12/27/20 14:22 Urine Protein 3+ (Negative) H 12/27/20 14:22 Urine Glucose (UA) 2+ (Normal) 12/27/20 14:22 Urine Ketones 1+ (Negative) H 12/27/20 14:22 Urine Blood 2+ (Negative) H 12/27/20 14:22 Urine Nitrate Negative (Negative) 12/27/20 14: Urine Bilirubin Neg (Negative) 12/27/20 14:22 Urine Urobilinogen 1 mg/dL (Negative) H 12/27/20 14:22 Ur Leukocyte Esterase Negative (Negative) 12/27/20 14:22 Urine RBC 0-4 /hpf (0-2) H 12/27/20 14:22 Urine WBC 0-4 /hpf (0-5) H 12/27/20 14:22 Ur Squamous Epith Cells 0-4 /hpf (0-5) H 12/27/20 14:22 Amorphous Sediment Not Reportable 12/27/20 14:22 Urine Bacteria 1+ /hpf (NONE) H 12/27/20 14:22 Urine Mucus 1+ /hpf 12/27/20 14:22 A&P Assessment and plan (1) Intractable vomiting: Status: Acute Qualifiers: Nausea presence: with nausea Vomiting type: unspecified Qualified Code(s): R11.2 - Nausea with vomiting, unspecified (2) Abdominal pain: Status: Acute Qualifiers: Abdominal location: right lower quadrant Qualified Code(s): R10.31 - Right lower quadrant pain (3) Back pain: Status: Acute Qualifiers: Back pain location: back pain in unspecified location Chronicity: unspecified Back pain laterality: right Qualified Code(s): M54.9 - Dorsalgia, unspecified (4) Diabetic gastroparesis: Status: Chronic (5) Diabetes mellitus type 1: Status: Chronic Qualifiers: Diabetes mellitus complication detail: with polyneuropathy Diabetes mellitus complication status: with neurologic complications Qualified Code(s): E10.42 - Type 1 diabetes mellitus with diabetic polyneuropathy (6) Hypertension: Status: Chronic Qualifiers: Hypertension type: unspecified Qualified Code(s): I10 - Essential (primary) hypertension (7) History of financial difficulties: Status: Acute Additional A&P Information Observation admission IV fluids Since she has not had any improvement with Reglan, Phenergan, Dilaudid and Haldol administered in the emergency room will give her dose of IV Ativan and monitor response IV metoprolol x1 dose Scheduled Zofran followed by as needed Ativan followed by as needed Benadryl for nausea and vomiting control presently Will try erythromycin oral liquid IV acetaminophen Bisacodyl suppositories In talking with Mrs. Solomon, she does not have any medications at home currently. She does get insulin [id number]. She does not have a primary care provider. She has multiple medications listed on her home medication list but has not filled any of the prescriptions because she is unable to afford this. She does not have any antiemetics at home. She has not been taking antihypertensives and did not take antibiotic recently prescribed for abnormal urinalysis. She did state the Dilaudid seemed to usually help her more than anything but it did not yield any improvement in her symptoms today Recommend that we try to minimize repeat CT scans going forward to the leg as she has had 6 CTs of the abdomen and pelvis in the last month without significant change in findings Sliding scale and scheduled insulin At discharge will see if we can fill her prescriptions at our pharmacy and have them delivered to the bedside. Did discuss with her that this would not include pain medications but we would see if we could get some nausea medicines to help her once her symptoms are under better control. IV PPI Adjust home medication list to accurately reflect what she takes rather than what she has been prescribed Currently low risk for VTE given planned observation stay Plans discussed with patient and she was given an opportunity to ask questions Supportive care otherwise Full code Attestations Medical Necessity Statement*: Currently anticipated stay less than 2 midnights in this known type I diabetic with repeated admissions for gastroparetic symptoms. Plans are as indicated. 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 Code Acute Shoe Cementer for Chg Fwd Diagnoses Intractable vomiting R11.2 Nausea presence: with nausea Vomiting type: unspecified Abdominal pain R10.31 Abdominal location: right lower quadrant Back pain M54.9 Back pain location: back pain in unspecified location Chronicity: unspecified Back pain laterality: right Diabetic gastroparesis E11.43; K31.84 Diabetes mellitus type 1 E10.42 Diabetes mellitus complication detail: with polyneuropathy Diabetes mellitus complication status: with neurologic complications Hypertension I10 Hypertension type: unspecified History of financial difficulties Z87.897
[2020-12-27 18:17] VITALS: BP 214/106; PULSE 104; PULSE 106; RESP 16; RESP 18; O2SAT 98; O2SAT 99
[2020-12-27] MEDS: metoprolol tartrate 1 mg/1 mL SDV 5 mL 5 MG IV ×3 (18:25→23:14)
[2020-12-27] MEDS: LORazepam 2 mg/mL INJ 1 mL 1 MG IVP (18:27)
--- NOTE | 2020-12-27 19:08 | PC.NURSE ---
1900 pt arrived from ER. resting comfortably in bed.
[2020-12-27 20:00] VITALS: BP 192/95; PULSE 104; RESP 18; TEMP 37.2; O2SAT 98
[2020-12-27] MEDS: ondansetron 2 mg/ML SDV 2 mL 4 MG IVP (20:17)
[2020-12-27] MEDS: pantoprazole 40 mg SDV IVP (20:20)
[2020-12-27] MEDS: sodium chlor 0.9% + KCl 20 mEq 20 MEQ/1,000 ML BAG 150 MEQ IV (20:30)
[2020-12-27] MEDS: acetaminophen 1,000 MG/100 ML PIGGYBACK 400 MG IV (20:34)
[2020-12-27] MEDS: bisacodyl 10 mg Supp PR (20:42)
[2020-12-27 21:10] LABS: Glucose Point of Care 222 mg/dL (70-110)
[2020-12-27] MEDS: insulin glargine 100 units/1 mL 5 UNIT SUBCUT (21:31)
[2020-12-28] VITALS (9 sets, daily range): BP systolic 100–195; BP diastolic 58–98; PULSE 68–93; RESP 16–20; TEMP 36.6–37.2; O2SAT 95–100
[2020-12-28] MEDS: ondansetron 2 mg/ML SDV 2 mL 4 MG IVP ×5 (01:00→23:46)
[2020-12-28] MEDS: acetaminophen 1,000 MG/100 ML PIGGYBACK 400 MG IV ×2 (02:18→09:40)
[2020-12-28] MEDS: metoprolol tartrate 1 mg/1 mL SDV 5 mL 5 MG IV ×3 (03:02→23:38)
[2020-12-28] MEDS: sodium chlor 0.9% + KCl 20 mEq 20 MEQ/1,000 ML BAG 150 MEQ IV ×3 (04:51→21:17)
[2020-12-28 07:06] LABS: Glucose Point of Care 153 mg/dL (70-110)
[2020-12-28 07:19] LABS: Basophils % 0.2 %; Eosinophils % 0.2 %; Hematocrit 34.5 % (37.0-47.0); Hemoglobin 11.4 g/dL (11.5-15.3); Lymphocytes # 1.2 10^3/uL (0.8-4.8); Lymphocytes % 14.7 %; Mean Corpuscular Hemoglobin 27.7 pg (28.0-34.0); Mean Corpuscular Volume 83.9 fL (81-99); Mean Platelet Volume 8.6 fL (7.4-10.4); Monocytes # 0.5 10^3/uL (0.2-0.9); Monocytes % 6.5 %; Neutrophils # 6.47 10^3/uL (1.8-7.7); Neutrophils % 77.8 %; Nucleated Red Blood Cells % 0 %; Platelet Count 425 10^3/cmm (130-400); Red Blood Count 4.11 10^6/uL (4.1-5.3); Red Cell Distribution Width 13.4 % (12.1-15.1); White Blood Count 8.3 10^3/uL (4.0-10.0)
[2020-12-28 07:29] LABS: Anion Gap 15.2 (5-19); Blood Urea Nitrogen 9 mg/dL (6-20); Calcium 8.4 mg/dL (8.5-10.5); Carbon Dioxide 22 mmol/L (22-29); Chloride 101 mmol/L (98-107); Glomerular Filtration Rate 78.7 mL/min (90-130); Glucose 168 mg/dL (65-115); Magnesium 1.5 mg/dL (1.7-2.3); Osmolality Calculated 283 mOsm/kg (285-295); Potassium 3.2 mmol/L (3.5-5.1); Sodium 135 mmol/L (136-145)
[2020-12-28] MEDS: nitroglycerin 1 gm/inch oint Pkt 1 INCH TOPICAL ×2 (09:49→22:16)
[2020-12-28 10:56] LABS: Glucose Point of Care 194 mg/dL (70-110)
--- NOTE | 2020-12-28 11:06 | PC.NURSE ---
PT RECEIVED 1 IN DOSE OF NITROPASTE, PTS BP WAS 138/76, NOTIFIED DR. CHAUHAN AND SHE STATED TO HOLD METOPROLOL
--- NOTE | 2020-12-28 13:11 | PC.NURSE ---
PT INITIALLY REFUSED MEDS BECAUSE SHE WANTED TO GET BACK IN THE SHOWER BUT, I RETURNED AND SHE DECIDED SHE WANTED TO TAKE THEM.
[2020-12-28] MEDS: TRAMadol 50 mg Tablet PO ×2 (13:13→21:08)
--- NOTE | 2020-12-28 14:58 | PC.NURSE ---
PT BP WAS 111/76, PT HAD METOPROLOL AND NITROPASTE DUE, NOTIFIED DR. CHAUHAN AND ORDERED TO HOLD BOTH MEDICATIONS AT THIS TIME. WILL CONT. TO MONITOR.
[2020-12-28 17:34] LABS: Glucose Point of Care 109 mg/dL (70-110)
--- NOTE | 2020-12-28 20:53 | P.PN_ITS ---
Subjective Subjective: Interval history: Starting to feel better. Still nauseated. Has not thrown up in a while. Tolerating some sips of clears. Still with pain but not as severe. She took a shower a couple of times and that seemed to help her pain quite a bit. Her said that when she comes home it is when she starts to transition to solid foods that things get worse. He was not aware that she could not see from phone conversation. She has to have somebody at home with her to check her blood sugar because she is unable to read the glucometer reading. She also cannot see to draw up insulin or to keep her pills straight. She has been inconsistent in what she has reported picking up in terms her prescriptions between myself whom she told she has not been taking anything except for insulin at times and other staff whom she says she is taken all the medicines prescribed. Vitals/I&O/Wt Last Vital Signs Temp 99.0 F 12/28/20 20:00 Pulse 80 12/28/20 20:00 Resp 18 12/28/20 20:00 BP 140/98 12/28/20 20:00 Pulse Ox 95 12/28/20 20:00 12/28/20 12/28/20 12/28/20 06:59 14:59 22:59 Intake Total 1100 / 1200 1340 / 1340 480 / 1820 Output Total 750 / 750 Balance 350 / 450 1340 / 1340 480 / 1820 Weight last 48 hrs Weight 90.718 kg Physical Exam Narrative: EXAM NARRATIVE: Constitutional: Less acutely ill-appearing HEENT: Mucous membranes remain a little dry Respiratory: Clear to auscultation bilaterally Cardiovascular: Regular rhythm Abdomen: Soft, less tender, positive bowel sounds Extremities: Amputation of toes on the right foot, left BKA. Skin: Wounds to toes on right foot unchanged Neuro: Speech clear, moves all extremities Psych: Calmer Data : 12/28/20 06:45 12/28/20 06:45 A&P Assessment and plan (1) Intractable vomiting: Status: Acute Qualifiers: Nausea presence: with nausea Vomiting type: unspecified Qualified Code(s): R11.2 - Nausea with vomiting, unspecified (2) Abdominal pain: Status: Acute Qualifiers: Abdominal location: right lower quadrant Qualified Code(s): R10.31 - Right lower quadrant pain (3) Back pain: Status: Acute Qualifiers: Back pain location: back pain in unspecified location Chronicity: unspecified Back pain laterality: right Qualified Code(s): M54.9 - Dorsalgia, unspecified (4) Diabetic gastroparesis: Status: Chronic (5) Diabetes mellitus type 1: Status: Chronic Qualifiers: Diabetes mellitus complication status: with neurologic complications Diabetes mellitus complication detail: with polyneuropathy Qualified Code(s): E10.42 - Type 1 diabetes mellitus with diabetic polyneuropathy (6) Hypertension: Status: Chronic Qualifiers: Hypertension type: unspecified Qualified Code(s): I10 - Essential (primary) hypertension (7) History of financial difficulties: Status: Acute Additional A&P Information Continue IV fluids Replace electrolytes Continue erythromycin Continue scheduled Zofran Has as needed Ativan and Benadryl Advance to GI soft diet as tolerated Status post IV Tylenol x3 doses, transition to oral Tramadol initiated for oral pain control Avoiding IV narcotics unless definitively indicated Bisacodyl suppositories as needed Add oral laxatives We will see if we can get full clarification of what she has and has not picked up from pharmacy Need to come up with some way to help her discern what medication she is taking. I suspect inconsistent use of all of her medications as a contributor to her chronic illness. Recommend that minimizing repeat CT scans going forward as she has had 6 CTs of the abdomen and pelvis in the last month without significant change in findings Sliding scale and scheduled insulin At discharge will see if we can fill her prescriptions at our pharmacy and have them delivered to the bedside. On PPI Low risk for VTE as gettinig out of bed Plans discussed with patient and she was given an opportunity to ask questions Supportive care otherwise Full code Attestations Medical Necessity Statement*: And stable now crossed 2 midnights will change her to inpatient status. She has had improvement. In reviewing what has caused her to come back to the hospital so quickly at any time she has to start taking more solid food. Him also discern that she cannot see well enough to take her medications consistently. 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 Code Acute Plater Supervisor for Chg Fwd Diagnoses Intractable vomiting R11.2 Nausea presence: with nausea Vomiting type: unspecified Abdominal pain R10.31 Abdominal location: right lower quadrant Back pain M54.9 Back pain location: back pain in unspecified location Chronicity: unspecified Back pain laterality: right Diabetic gastroparesis E11.43; K31.84 Diabetes mellitus type 1 E10.42 Diabetes mellitus complication status: with neurologic complications Diabetes mellitus complication detail: with polyneuropathy Hypertension I10 Hypertension type: unspecified History of financial difficulties Z87.941
[2020-12-28] MEDS: pantoprazole 40 mg SDV IVP (21:13)
[2020-12-28] MEDS: magnesium sulfate premix 2 GM/50 ML PIGGYBACK IV (21:19)
[2020-12-28 21:33] LABS: Glucose Point of Care 152 mg/dL (70-110)
[2020-12-28] MEDS: insulin glargine 100 units/1 mL 5 UNIT SUBCUT (22:15)
[2020-12-29] MEDS: sodium chlor 0.9% + KCl 20 mEq 20 MEQ/1,000 ML BAG 125 MEQ IV (01:34)
[2020-12-29 03:39] VITALS: BP 116/54; PULSE 67; RESP 17; TEMP 37; O2SAT 97
[2020-12-29] MEDS: metoprolol tartrate 1 mg/1 mL SDV 5 mL 5 MG IV (04:20)
[2020-12-29] MEDS: ondansetron 2 mg/ML SDV 2 mL 4 MG IVP (06:08)
[2020-12-29 06:15] LABS: Magnesium 1.9 mg/dL (1.7-2.3)
[2020-12-29 06:17] LABS: Anion Gap 11.5 (5-19); Blood Urea Nitrogen 8 mg/dL (6-20); Calcium 7.9 mg/dL (8.5-10.5); Carbon Dioxide 23 mmol/L (22-29); Chloride 105 mmol/L (98-107); Glomerular Filtration Rate 60.8 mL/min (90-130); Glucose 106 mg/dL (65-115); Osmolality Calculated 281 mOsm/kg (285-295); Potassium 3.5 mmol/L (3.5-5.1); Sodium 136 mmol/L (136-145)
[2020-12-29 06:44] LABS: Glucose Point of Care 103 mg/dL (70-110)
[2020-12-29] MEDS: LORazepam 2 mg/mL INJ 1 mL IM ×3 (08:16→19:32)
[2020-12-29] MEDS: TRAMadol 50 mg Tablet PO ×2 (08:16→19:30)
[2020-12-29 10:15] VITALS: BP 167/90; PULSE 101; RESP 20; TEMP 37.1; O2SAT 94
--- NOTE | 2020-12-29 10:21 | P.PN_ITS ---
Subjective Subjective: Interval history: Patient's IV came out. She has not remained still enough or out of the shower enough for another IV to be placed. Attempts were made twice without success. She then began refusing IM medications. She has been asking for Dilaudid throughout the day. Pain has been in her back as well as in her abdomen. On examination abdomen has been soft. She has been walking around with a walker. She has spent a lot of her day at the nurses station constantly asking for me out loud and asking for Dilaudid. She was in the shower so much today that water actually started leaking to the floor below. I have talked to the patient throughout the day explaining that the Dilaudid has not controlled her pain at any point in time when she has received it while I have cared for her. Granted she only had it in the emergency room but nothing that she received in the emergency room helped her. I have tried to order laboratory studies but she has refused to have blood work done or been in the shower where it could not be drawn. These have included checking for lactic acid and other acute inflammatory markers as well as cardiac enzymes. With her history of diabetes and hypertension she is at risk of having ischemia as a cause of her symptoms. She has not laid down long enough to get EKGs or other studies. She has taken the erythromycin throughout the day. She did eventually consent to getting IM medications such as Benadryl, Phenergan, orphenadrine, Ativan. She has not had any vomiting today which is progress. I have talked to her about consideration of endoscopy, upper GI or other motility study and even possibility of CTA of the abdomen and pelvis which I do not see that she has ever had. She did have a CT of her back on December 22 that did not show any acute abnormalities. Given lack of neurological abnormalities and ability to walk with a walker all around the hospital, and will know that we need to currently consider an MRI. With her degree of restlessness and lack of cooperation today I am not sure that we would get much utility out of any of the mentioned studies presently. Her vital signs have remained stable today. She has not had progressive ill appearance. Vitals/I&O/Wt Last Vital Signs Temp 98.8 F 12/29/20 10:15 Pulse 101 H 12/29/20 10:15 Resp 20 H 12/29/20 10:15 BP 167/90 12/29/20 10:15 Pulse Ox 94 12/29/20 10:15 12/28/20 12/29/20 12/29/20 22:59 06:59 14:59 Intake Total 1530 / 2870 642.5 / 3512.5 0 / 0 Balance 1530 / 2870 642.5 / 3512.5 0 / 0 Weight last 48 hrs Weight 90.718 kg Data : 12/28/20 06:45 12/29/20 04:42 A&P Assessment and plan (1) Intractable vomiting: Status: Acute Qualifiers: Nausea presence: with nausea Vomiting type: unspecified Qualified Code(s): R11.2 - Nausea with vomiting, unspecified (2) Abdominal pain: Status: Acute Qualifiers: Abdominal location: right lower quadrant Qualified Code(s): R10.31 - Right lower quadrant pain (3) Back pain: Status: Acute Qualifiers: Back pain location: back pain in unspecified location Chronicity: unspecified Back pain laterality: right Qualified Code(s): M54.9 - Dorsalgia, unspecified (4) Diabetic gastroparesis: Status: Chronic (5) Diabetes mellitus type 1: Status: Chronic Qualifiers: Diabetes mellitus complication status: with neurologic complications Diabetes mellitus complication detail: with polyneuropathy Qualified Code(s): E10.42 - Type 1 diabetes mellitus with diabetic polyneuropathy (6) Hypertension: Status: Chronic Qualifiers: Hypertension type: unspecified Qualified Code(s): I10 - Essential (primary) hypertension (7) History of financial difficulties: Status: Acute Additional A&P Information We will continue attempts to try to get studies that are ordered documenting her lack of cooperation and refusal Avoiding IV narcotics in particular Dilaudid unless objective indication for such Adjust medications for lack of IV Full liquid diet Bisacodyl suppositories as needed Scheduled oral laxatives Recommend that minimizing repeat CT scans going forward as she has had 6 CTs of the abdomen and pelvis in the last month without significant change in findings Sliding scale and scheduled insulin At discharge will see if we can fill her prescriptions at our pharmacy and have them delivered to the bedside. On PPI Low risk for VTE as getting out of bed Plans, findings and concerns discussed with patient throughout the day and she was given an opportunity to ask questions on multiple occasions Supportive care otherwise Full code Attestations Medical Necessity Statement*: Requires ongoing inpatient stay for continued management of intractable symptoms. She has been returning to the hospital approximately every 2 days. Time Spent in Patient Care: Greater than 35 minutes (>than 50% of time spent in counselling and/or direct pt care on unit) . I spent approximately 150 minutes on patient care today with nearly all of this in [id number] discussion with the patient 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 Code Acute Product Development Engineer for g Fwd Diagnoses Intractable vomiting R11.2 Nausea presence: with nausea Vomiting type: unspecified Abdominal pain R10.31 Abdominal location: right lower quadrant Back pain M54.9 Back pain location: back pain in unspecified location Chronicity: unspecified Back pain laterality: right Diabetic gastroparesis E11.43; K31.84 Diabetes mellitus type 1 E10.42 Diabetes mellitus complication status: with neurologic complications Diabetes mellitus complication detail: with polyneuropathy Hypertension I10 Hypertension type: unspecified History of financial difficulties Z87.89
--- NOTE | 2020-12-29 11:16 | PC.NURSE ---
Pt endorsing nausea and pain, however no IV access. Pt refusing this nurse to restart IV, stating, I have to get back in the shower. I can't do anything until I'm back in the shower. Can you start it while I am in the shower? This nurse explained to pt that labs needed to be drawn and medications needed to be given, none of which could be done without an IV. Pt continued to refuse and proceeded to get into shower. Dr. Rubio notified. Will try again when pt is out of shower.
--- NOTE | 2020-12-29 11:42 | PC.RESP ---
RT has attempted to obtain ekg several times. pt is in the shower, stated that she is trying to alleviate the pain. nurse notified
[2020-12-29] MEDS: promethazine 25 mg/mL SDV 1 mL IM (12:37)
[2020-12-29] MEDS: diphenhydrAMINE 50 mg/mL SDV 1mL 25 MG IM (12:37)
--- NOTE | 2020-12-29 13:50 | PC.RESP ---
pt was unavailable for ekg at this time, pt is with nursing
--- NOTE | 2020-12-29 14:07 | PC.NURSE ---
IV Was called by patient care nurse, ISRAEL Hwang, to do US guided IV. First attempt, had patient lay back at 45 degree angle and hold arm out. Patient moving all over in the bed. Nurse told patient that she had to hold still for safety and for better success with starting the IV. Vein access but not able to advance due to patient moving so much. Second attempt was made at median cubital vein, good flashback. Patient still moving about in the bed. Patient refusing to lay back. Patient putting fingers in her mouth to induce vomiting. During this, the brachial artery was accessed. Minimal blood loss. I did quickly advance catheter into place and removed needle for both mine and patient safety. Placed J-loop on to stop bleeding. Nurse held catheter and J-loop in place while primary nurse went to get pressure dressing. This nurse was holding pressure on site for approx 5 minutes. Patient trying to get out of bed, insisting that she needs to go back to the shower. Pressure dressing applied. Patient not compliant enough for another attempt. Procedure stopped. No further bleeding noted. Physician notified.
--- NOTE | 2020-12-29 14:13 | PC.NURSE ---
Ultrasound IV access attempted and unsuccessful by ISRAEL Guerrero. Pt unable to tolerate sitting still long enough for procedure. This nurse explained to pt that we are doing all that we can for her but without IV access, our options are limited. Pt refused to stay in bed for further attempt. Pt in shower when this nurse left the room.
--- NOTE | 2020-12-29 15:33 | PC.RESP ---
pt is in shower
[2020-12-29] MEDS: orphenadrine 30 mg/mL Inj 2 mL 60 MG IM (16:34)
[2020-12-29 17:08] LABS: Glucose Point of Care 163 mg/dL (70-110)
--- NOTE | 2020-12-29 17:53 | PC.RESP ---
RT attempted to obtain ekg. pt refused to leave shower. nurse notified. Dr Rubio was notified of multiple attempts to obtain ekg, Dr. Rubio ok with cancelling ekg's at this time.
[2020-12-29 18:34] LABS: Troponin(5th) Baseline 40 ng/L (0-10)
--- NOTE | 2020-12-29 19:30 | PC.NURSE ---
Pain Patient at nurses station complaining of severe right lower quadrant abdominal pain. Patient requesting this nurse to call the physician immediately and let patient talk to physician. This nurse reviewed patient MAR and discussed with patient that she could have PRN Ativan and Tramadol at this time. Patient ambulated back to bed with walker and given PRN Ativan and Tramadol at 1931. Patient then went and showered. Patient had episode of vomiting in shower, stating that I threw up my Tramadol in the shower after ambulating back to bed. This nurse did not see any Tramadol in the shower. Patient Lidocaine patches x2 applied at 2009 to medial lower back. Patient continues to request to talk to physician, patient BP elevated. Patient is refusing to stay in room, will not sit down for manual BP or stay still. Nitroglycerin ointment 1in applied to patient chest at 2054. Dr. Emery on floor to see new admissions, this nurse spoke with physician regarding patient concerns and current behavior. Physician gave orders for Toradol 30mg IM q8hr prn pain. Patient given 30mg Toradol IM at 2049. Patient fell asleep approx. 15m after receiving Toradol. Patient slept through HS accu check and insulin administration.
[2020-12-29 20:00] VITALS: BP 165/101; PULSE 126; RESP 22; TEMP 37.2; O2SAT 94
[2020-12-29] MEDS: lidocaine 5% Patch 2 PATCH TOPICAL (20:10)
[2020-12-29] MEDS: ketorolac 30 mg/mL INJ IM (20:50)
[2020-12-29] MEDS: nitroglycerin 1 gm/inch oint Pkt 1 INCH TOPICAL (20:55)
[2020-12-29 21:37] LABS: Glucose Point of Care 148 mg/dL (70-110)
[2020-12-29] MEDS: insulin glargine 100 units/1 mL 5 UNIT SUBCUT (21:47)
[2020-12-29 22:30] LABS: Troponin 5 2HR 37.62 ng/L (0-10); Troponin 5 2HR Delta -2.38 ABS# (0-10)
[2020-12-30] VITALS (7 sets, daily range): BP systolic 137–180; BP diastolic 71–100; PULSE 81–111; RESP 16–20; TEMP 36.4–37.4; O2SAT 95–99
[2020-12-30 00:20] LABS: Troponin 5 6HR 38.12 ng/L (0-10)
[2020-12-30 00:21] LABS: Troponin 5 6HR Delta -1.88 ng/L (0-12)
--- NOTE | 2020-12-30 00:50 | PC.NURSE ---
Pain Patient woke at 0035 and came to nurses station demanding that this nurse call physician and let patient talk to physician. When asking patient what this nurse could do for her patient states I'm hurting and I don't want it to get really bad so I need you to call the doctor and let me talk to her. This nurse explained to patient that Dr. Emery was in the ICU at this time with a patient and that patient could have phenergan at this time for her nausea but that it was not time for Tramadol or Toradol just yet. Patient refused to leave nurses station stating that physician had to be called at this time. Continued to talk to patient and explain that her orders had been updated by Dr. Rubio this evening and that Dr. Emery had added Toradol as well. Patient asked for her Ativan, notified patient that she could not have Ativan until 0330. Patient requested to speak with charge nurse. Charge nurse Genesis Mendieta RN notified. Charge nurse spoke with patient at nurses station. Multiple times patient asked to call physician, explained to patient each time that nursing had already spoke with physician and that physician was also in the ICU with a patient at this time. Educated patient that she would be receiving currently ordered meds when it was time and that orders had already been updated tonight. Daytime physician, Dr. Rubio, had spoken with patient multiple times throughout the day regarding treatment plan and educated patient that IV narcotics would only worsen her gastroparesis. Patient continues to ask the same questions repeatedly about calling the physician for more medications. Patient after about 5 minutes of telling the nurses to call the physician went back to patient room. Patient was taken PRN Phenergan for her complaints of nausea. Patient to receive PRN Tramadol at 0130.
[2020-12-30] MEDS: promethazine 25 mg/mL SDV 1 mL 50 MG IM (01:00)
--- NOTE | 2020-12-30 01:30 | PC.NURSE ---
Physician at bedside Dr. Emery, charge nurse Genesis Mendieta RN and this nurse at bedside at 0130. Patient received PO Tramadol at this time. Dr. Emery discussed with patient that medications have been adjusted and at this time no other changes are being made. Per Dr. Emery, patient has received Dilaudid before and that it has not helped her pain and can cause her gastroparesis to be worse. Patient did not have any further questions at this time. Patient resting in bed with eyes closed. Patient blood pressure remains elevated, physician aware. Patient removed Nitroglycerin paste d/t showering earlier in shift. Patient has taken 2 showers.
[2020-12-30] MEDS: TRAMadol 50 mg Tablet PO (01:33)
--- NOTE | 2020-12-30 02:30 | PC.NURSE ---
Patient at nurses station requesting Ativan. Informed patient that Ativan cannot be given until 0330. Patient states Can you please give it to me early . Educated patient that medication cannot be given earlier than ordered and that this nurse would bring Ativan when it is time. Patient stood at desk for several more minutes before returning to bed. At 0300 patient resting quietly in bed with eyes closed. Staff will do vital signs and this nurse will give patient Ativan if patient remains nauseated at 0330.
[2020-12-30] MEDS: LORazepam 2 mg/mL INJ 1 mL IM (03:44)
[2020-12-30] MEDS: nitroglycerin 1 gm/inch oint Pkt 1 INCH TOPICAL ×4 (03:44→21:11)
--- NOTE | 2020-12-30 03:48 | PC.NURSE ---
Ativan Patient woken for vitals and states that she is still nauseated and asks if it it time for her Ativan. Ativan 2mg IM given at this time for complains of nausea. Patient is resting in bed, blood pressure improved. New nitro paste ointment applied to right chest, 1in. Patient Lidocaine patches laying in floor, came loose after showering per patient, disposed of by this nurse at this time.
[2020-12-30 05:24] LABS: C Reactive Protein 97.9 mg/L (0.0-4.9); Magnesium 1.7 mg/dL (1.7-2.3)
[2020-12-30 05:26] LABS: Lactate (Lactic Acid level) 1.8 mmol/L (0.5-2.2)
[2020-12-30 05:45] LABS: Erythrocyte Sedimentation Rate 57 mm/hr (0-15)
[2020-12-30 06:24] LABS: Glucose Point of Care 155 mg/dL (70-110)
--- NOTE | 2020-12-30 07:30 | PC.NURSE ---
Received report from nightman nurse at this time. Patient does not have an IV and at this time patient is refusing to allow anyone to try and start an IV.
[2020-12-30] MEDS: ketorolac 30 mg/mL INJ IM ×2 (07:38→17:22)
[2020-12-30] MEDS: sennosides-docusate Tablet 1 TAB PO (09:18)
[2020-12-30] MEDS: pantoprazole DR 40 mg Tablet PO (09:18)
[2020-12-30] MEDS: magnesium oxide 400 mg tablet PO (09:18)
[2020-12-30 11:30] LABS: Glucose Point of Care 152 mg/dL (70-110)
--- NOTE | 2020-12-30 12:44 | P.PN_ITS ---
Subjective Subjective: Interval history: Patient has finally gotten some rest and is currently asleep. She was up most of the night at the desk again. Case has been discussed with Dr. Soto who has agreed to consider EGD. Vitals/I&O/Wt Last Vital Signs Temp 97.6 F 12/30/20 12:00 Pulse 93 12/30/20 12:00 Resp 20 H 12/30/20 12:00 BP 138/75 12/30/20 12:00 Pulse Ox 97 12/30/20 12:00 12/29/20 12/30/20 12/30/20 22:59 06:59 14:59 Intake Total 60 / 1060 600 / 1660 Balance 60 / 1060 600 / 1660 Physical Exam Narrative: EXAM NARRATIVE: Constitutional: Asleep Respiratory: Clear bilaterally, chest expansion equal bilaterally Cardiovascular: Regular rhythm Abdomen: Soft Extremities: Wounds to foot no change Neuro: No abnormal movements Data : 12/28/20 06:45 12/29/20 04:42 A&P Assessment and plan (1) Intractable vomiting: Status: Acute Qualifiers: Nausea presence: with nausea Vomiting type: unspecified Qualified Code(s): R11.2 - Nausea with vomiting, unspecified (2) Abdominal pain: Status: Acute Qualifiers: Abdominal location: right lower quadrant Qualified Code(s): R10.31 - Right lower quadrant pain (3) Back pain: Status: Acute Qualifiers: Back pain laterality: right Back pain location: back pain in unspecified location Chronicity: unspecified Qualified Code(s): M54.9 - Dorsalgia, unspecified (4) Diabetic gastroparesis: Reported diagnosis Status: Chronic (5) Diabetes mellitus type 1: Status: Chronic Qualifiers: Diabetes mellitus complication detail: with polyneuropathy Diabetes mellitus complication status: with neurologic complications Qualified Code(s): E10.42 - Type 1 diabetes mellitus with diabetic polyneuropathy (6) Hypertension: Status: Chronic Qualifiers: Hypertension type: unspecified Qualified Code(s): I10 - Essential (primary) hypertension (7) History of financial difficulties: Status: Acute Additional A&P Information Surgical consultation for EGD Will need to get an IV for EGD to be done Decrease amount of prn Ativan IM Continue Phenergan and Benadryl IM as needed For now continue Toradol pending results of EGD On oral PPI Continue erythromycin suspension Add Flexeril Continue acetaminophen, tramadol and Toradol for pain K pad as needed Insulin as ordered Bisacodyl suppositories as needed Scheduled oral laxatives Recommend that minimizing repeat CT scans going forward as she has had 6 CTs of the abdomen and pelvis in the last month without significant change in findings Low risk for VTE as getting out of bed Plans, findings and concerns discussed with patient throughout the day and she was given an opportunity to ask questions on multiple occasions Supportive care otherwise Full code Attestations Medical Necessity Statement*: Ongoing inpatient stay secondary to continued symptoms and need for monitoring as well as further evaluation as described. 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
[2020-12-30 17:10] LABS: Glucose Point of Care 86 mg/dL (70-110)
--- NOTE | 2020-12-30 17:43 | PC.NURSE ---
Updated Dr. Soto that patient does not have an IV and has been refusing to let us put one in but she does want to have the EGD. Dr. Soto stated to make sure anaesthesia knows early in the morning that patient does not have an IV. Dr. Soto wants the patient to stay NPO at this time.
--- NOTE | 2020-12-30 18:08 | PM.CONSULT ---
Providers/Reason For Consult Consulting Physican/Specialty*: General Surgery Dr. Soto Reason for Consult*: abdominal pain Attending Physician: Jessica Rubio MD History of Present Illness History of Present Illness Cherrie Solomon is a 40 year old female With frequent hospitalization who has been admitted again with abdominal pain, nausea and vomiting. She has had a few episodes of DKA and is a poorly controlled diabetic. She denies any constipation or diarrhea and mainly complains of abdominal pain which is generalized with nausea. The pain is not postprandial, does not radiate, no relieving factors. Repeated imaging studies have shown no acute pathology per patient denies ever having an EGD before Review of Systems General: Reports: ROS unobtainable due to mental status Meds/Allergies Home Medications and Allergies Home Medications Medication Instructions Recorded Confirmed Last Taken Type insulin lispro See Rx Instructions .ROUTE .COMPLEX 12/13/20 12/27/20 12/21/20 History Lantus Solostar U-100 Insulin 5 unit SUBCUT BEDTIME 12/24/20 12/27/20 12/23/20 History Allergies Allergy/AdvReac Type Severity Reaction Status Date / Time morphine Allergy ALGY-Difficulty Verified 12/24/20 13:40 Breathing Current Medications Current Medications Generic Name Dose Route Start Last Admin Trade Name Freq PRN Reason Stop Dose Admin Erythromycin Ethylsuccinate 200 mg 12/27/20 19:30 12/30/20 17:25 Erythromycin Ees 200 Mg/5 Ml Btl 100 Ml PO Not Given TIDWM DAWSON Protocol Insulin Aspart 0 unit 12/27/20 21:00 12/29/20 21:47 Insulin Aspart 100 Unit/1 Ml SUBCUT 1 unit BEDTIME DAWSON Administration Protocol Insulin Aspart 0 unit 12/27/20 18:46 12/30/20 17:19 Insulin Aspart 100 Unit/1 Ml SUBCUT Not Given TIDWM DAWSON Protocol Insulin Glargine 5 unit 12/27/20 21:00 12/29/20 21:47 Insulin Glargine 100 Units/1 Ml SUBCUT 5 unit BEDTIME DAWSON Administration Ketorolac Tromethamine 30 mg 12/29/20 20:33 12/30/20 17:22 Ketorolac 30 Mg/Ml Inj IM 01/03/21 20:32 30 mg Q8H PRN Administration MODERATE PAIN Lidocaine 2 patch 12/29/20 21:00 12/30/20 09:18 Lidocaine 5% Patch TOPICAL Not Given [id number] DAWSON Lorazepam 2 mg 12/29/20 22:28 12/30/20 03:44 Lorazepam 2 Mg/Ml Inj 1 Ml IM 2 mg Q8H PRN Administration persistent n/v after phenergan Magnesium Oxide 400 mg 12/29/20 09:00 12/30/20 17:20 Magnesium Oxide 400 Mg Tablet PO Not Given BID DAWSON Nitroglycerin 1 inch 12/28/20 09:00 12/30/20 15:45 Nitroglycerin 1 Gm/Inch Oint Pkt TOPICAL 1 inch Q6H DAWSON Administration Pantoprazole Sodium 40 mg 12/30/20 09:00 12/30/20 17:[address] 40 Mg Tablet PO Not Given BID DAWSON Promethazine HCl 50 mg 12/29/20 22:23 12/30/20 01:00 Promethazine 25 Mg/Ml Sdv 1 Ml IM 50 mg Q6H PRN Administration NAUSEA Senna/Docusate Sodium 1 tab 12/29/20 09:00 12/30/20 17:21 Sennosides-Docusate Tablet PO Not Given BID DAWSON Tramadol HCl 50 mg 12/28/20 08:58 12/30/20 01:33 Tramadol 50 Mg Tablet PO 50 mg Q6H PRN Administration MODERATE PAIN PFSH Acute PFSH: Medical History Back pain CKD (chronic kidney disease) stage 2, GFR 60-89 ml/min baseline Cr is around 1.0 Coronary artery disease hx of stenting Diabetes mellitus type 1 diagnosed age 15, history of peripheral neuropathy, gastroparesis and nephropathy Diabetic foot ulcer s/p surgical intervention and eventual amputation Diabetic gastroparesis Diabetic ophthalmopathy DKA (diabetic ketoacidoses) Foot osteomyelitis, right Hyperlipidemia Hypertension Non-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 Surgical History Below-knee amputation of left lower extremity H/O exploratory laparotomy x 3 History of amputation of right forefoot Hx of cholecystectomy Previous section x 3 S/P coronary artery stent placement x 1 S/P percutaneous endoscopic gastrostomy (PEG) tube placement Status post amputation Family History Unknown Diabetes extensive, type II Other CHF (congestive heart failure) Social History Smoking and tobacco status: former smoker Quit status (tobacco): has quit using tobacco Former quit date comment: 15 yrs ago Alcohol intake: former Former alcohol use details: 15 yrs ago Household members: spouse Marital status: Sexually active: Yes (1, ) Female Reproductive History: Date of last menstrual period: 12/17/20 Vitals/I&O/Wt Last Vital Signs Temp 98.9 F 12/30/20 16:00 Pulse 85 12/30/20 16:00 Resp 16 12/30/20 16:00 BP 157/82 12/30/20 16:00 Pulse Ox 99 12/30/20 16:00 12/30/20 12/30/20 12/30/20 06:59 14:59 22:59 Intake Total 600 / 1660 Balance 600 / 1660 Physical Exam Narrative: EXAM NARRATIVE: HEENT: Normocephalic Eye: Sclera /conjunctiva normal Abdomen: Soft to palpation, NT , ND Neurological: Oriented to place person and time Skin: Intact,left BKA A&P Assessment and plan (1) Abdominal pain: 40-year-old female with chronic abdominal pain associate with nausea and vomiting with multiple imaging studies which has not shown any acute pathology. As plan a part of her work-up we will schedule her [place] [facility] 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
--- NOTE | 2020-12-30 19:08 | PC.NURSE ---
Report to Dionicio IBARRA at this time.
[2020-12-30 20:05] LABS: Glucose Point of Care 89 mg/dL (70-110)
[2020-12-30] MEDS: lidocaine 5% Patch 2 PATCH TOPICAL (21:11)
[2020-12-31] VITALS (12 sets, daily range): BP systolic 122–165; BP diastolic 72–103; PULSE 77–92; RESP 17–21; TEMP 36.8–38.3; O2SAT 94–98
[2020-12-31] MEDS: nitroglycerin 1 gm/inch oint Pkt 1 INCH TOPICAL ×2 (03:40→15:18)
[2020-12-31] MEDS: LORazepam 2 mg/mL INJ 1 mL 1 MG IM ×2 (03:40→15:23)
[2020-12-31 06:33] LABS: Glucose Point of Care 76 mg/dL (70-110)
--- NOTE | 2020-12-31 07:48 | PC.NURSE ---
pt wheeled off unit to GI lab.
--- NOTE | 2020-12-31 08:05 | ANES.PREANE2 ---
Pre-Anesthetic Assessment Pre-Anesthetic Assessment: Height/Weight: Height 1.75 m Weight 90.718 kg Temp Pulse Resp BP Pulse Ox 98.8 F 88 18 152/79 95 12/31/20 08:00 12/31/20 08:00 12/31/20 08:00 12/31/20 08:00 12/31/20 03:32 Preop Diagnosis: abdominal pain Proposed Procedure: Operation Date: 12/31/20 08:15 Proposed Procedures p EGD(Not Applicable) - Onesimo Soto MD Familial anesthetic complications: None Was Beta Rozina taken within 24 hours: N/A Was Clonidine taken within 24 hours: N/A Last intake: > 8 hrs (no intake yesterday per physician) Social: Social History: No alcohol and No tobacco Exam: Pre-Anes Outpt Exam: alert, oriented x 3, clear to auscultation bilaterally and regular rate & rhythm Airway: Cervical ROM: WNL MP: 2 Dentition: Other (poor dentition, missing, discolored, rotting, broken) Metabolic: Metabolic: DM (type I ) Anesthetic Plan: ASA status: 4 Anesthesia: MAC Other: No vomiting since yesterday Risk of > 500 ml blood loss (7ml/kg in children): No Meds/Allergies Current Medications: Current Medications Generic Name Dose Route Start Last Admin Trade Name Freq PRN Reason Stop Dose Admin Erythromycin Ethyl succinate 200 mg 12/27/20 19:30 12/30/20 17:25 Erythromycin Ees 200 Mg/5 Ml Btl 100 Ml PO Not Given TIDWM DAWSON Protocol Sodium Chloride 1,000 mls @ 30 ml s/hr 12/30/20 18:06 12/30/20 18:45 Sodium Chloride 0.9% IV 12/31/20 18:05 Not Given .Q24H ONE Sodium Chloride 1,000 mls @ 30 ml s/hr 12/31/20 08:00 12/31/20 08:21 Sodium Chloride 0.9% IV 01/01/21 07:59 30 mls/hr .Q24H DAWSON Administration Insulin Aspart 0 unit 12/27/20 21:00 12/30/20 20:52 Insulin Aspart 1 00 Unit/1 Ml SUBCUT Not Given BEDTIME DAWSON Protocol Insulin Aspart 0 unit 12/27/20 18:46 12/30/20 17:19 Insulin Aspart 1 00 Unit/1 Ml SUBCUT Not Given TIDWM [facility] Protocol Insulin Glargine 5 unit 12/27/20 21:00 12/30/20 20:52 Insulin Glargine 100 Units/1 Ml SUBCUT Not Given BEDTIME DAWSON Lidocaine 2 patch 12/29/20 21:00 12/30/20 21:11 Lidocaine 5% Pat ch TOPICAL 2 patch [id number] DAWSON Administration Lorazepam 1 mg 12/30/20 20:27 12/31/20 03:40 Lorazepam 2 Mg/M l Inj 1 Ml IM 1 mg Q12H PRN Administration persistent n/v af ter phenergan Magnesium Oxide 400 mg 12/29/20 09:00 12/30/20 17:20 Magnesium Oxide 400 Mg Tablet PO Not Given BID [facility] Nitroglycerin 1 inch 12/28/20 09:00 12/31/20 03:40 Nitroglycerin 1 Gm/Inch Oint Pkt TOPICAL 1 inch Q6H DAWSON Administration Ondansetron HCl 4 mg 12/31/20 07:58 12/31/20 08:26 Ondansetron 2 Mg /Ml Sdv 2 Ml IVP 4 mg Q15M PRN Administration Nausea/Vomiting P ACU PHASE II Pantoprazole Sodiu m 40 mg 12/30/20 09:00 12/30/20 17:[address] 40 Mg Tablet PO Not Given BID [facility] Promethazine HCl 50 mg 12/29/20 22:23 12/30/20 01:00 Promethazine 25 Mg/Ml Sdv 1 Ml IM 50 mg Q6H PRN Administration NAUSEA Senna/Docusate Sod ium 1 tab 12/29/20 09:00 12/30/20 17:21 Sennosides-Docus ate Tablet PO Not Given BID [facility] Tramadol HCl 50 mg 12/28/20 08:58 12/30/20 01:33 Tramadol 50 Mg T ablet PO 50 mg Q6H PRN Administration MODERATE PAIN Additional Medication Information: I personally reviewed home medication list and medications received day of admission thus far. PFSH Anesthesia PFSH: Medical History Back pain CKD (chronic kidney disease) stage 2, GFR 60-89 ml/min baseline Cr is around 1.0 Coronary artery disease hx of stenting Diabetes mellitus type 1 diagnosed age 15, history of peripheral neuropathy, gastroparesis and nephropathy Diabetic foot ulcer s/p surgical intervention and eventual amputation Diabetic gastroparesis Diabetic ophthalmopathy DKA (diabetic ketoacidoses) Foot osteomyelitis, right Hyperlipidemia Hypertension Non-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 Surgical History Below-knee amputation of left lower extremity H/O exploratory laparotomy x 3 History of amputation of right forefoot Hx of cholecystectomy Previous section x 3 S/P coronary artery stent placement x 1 S/P percutaneous endoscopic gastrostomy (PEG) tube placement Status post amputation Family History Unknown Diabetes extensive, type II Other CHF (congestive heart failure) Social History Smoking and tobacco status: former smoker Quit status (tobacco): has quit using tobacco Former quit date comment: 15 yrs ago Alcohol intake: former Former alcohol use details: 15 yrs ago Household members: spouse Marital status: Sexually active: Yes (1, ) Female Reproductive History: Date of last menstrual period: 12/17/20 Data Anesthesia CBC & Chem 7: 12/28/20 06:45 12/29/20 04:42 Other Labs: Laboratory Results - last 48 hr 12/29/20 12/29/20 12/29/20 16:59 18:05 21:34 ESR POC Glucose 163 H 148 H Lactate Magnesium Troponin T Baseline 40 H Troponin T 120 Minute Delta Troponin T Troponin T Hi Sens 6Hr Troponin T Hi Sens 6Hr Delta C-Reactive Protein 12/29/20 12/29/20 12/30/20 22:05 23:54 05:00 ESR 57 H POC Glucose Lactate Magnesium Troponin T Baseline Troponin T 120 Minute 37.62 H Delta Troponin T -2.38 L Troponin T Hi Sens 6Hr 38.12 H Troponin T Hi Sens 6Hr Delta -1.88 L C-Reactive Protein 12/30/20 12/30/20 12/30/20 05:00 05:00 06:21 ESR POC Glucose 155 H Lactate 1.8 Magnesium 1.7 Troponin T Baseline Troponin T 120 Minute Delta Troponin T Troponin T Hi Sens 6Hr Troponin T Hi Sens 6Hr Delta C-Reactive Protein 97.9 H 05/12/30/20 12/30/20 11:27 17:02 19:56 ESR POC Glucose 152 H 86 89 Lactate Magnesium Troponin T Baseline Troponin T 120 Minute Delta Troponin T Troponin T Hi Sens 6Hr Troponin T Hi Sens 6Hr Delta C-Reactive Protein 12/31/20 06:18 ESR POC Glucose 76 Lactate Magnesium Troponin T Baseline Troponin T 120 Minute Delta Troponin T Troponin T Hi Sens 6Hr Troponin T Hi Sens 6Hr Delta C-Reactive Protein Cardiac Studies: No Data to Display
[2020-12-31] MEDS: sodium chloride 0.9% 1,000 ML 30 ML IV (08:21)
[2020-12-31] MEDS: ondansetron 2 mg/ML SDV 2 mL 4 MG IVP (08:26)
--- NOTE | 2020-12-31 09:13 | PM.PN ---
Subjective Subjective: Interval history: She continues to have abdominal pain, denies any vomiting at some nausea Vitals/I&O/Wt Last Vital Signs Temp 98.8 F 12/31/20 08:00 Pulse 88 12/31/20 08:00 Resp 18 12/31/20 08:00 BP 152/79 12/31/20 08:00 Pulse Ox 95 12/31/20 03:32 12/30/20 12/31/20 12/31/20 22:59 06:59 14:59 Output Total 0 / 0 0 / 0 Balance 0 / 0 0 / 0 Physical Exam Narrative: EXAM NARRATIVE: Abdomen: Soft, nondistended, nontender Data : 12/28/20 06:45 12/29/20 04:42 A&P Assessment and plan (1) Abdominal pain: 40-year-old female with chronic abdominal pain associate with nausea and vomiting with multiple imaging studies which has not shown any acute pathology. Nursing staff was unable to obtain IV access overnight Plan for EGD under [facility] today Status: Acute Qualifiers: Abdominal location: right lower quadrant Qualified Code(s): R10.31 - Right lower quadrant pain Attestations Medical Necessity Statement*: As per primary attending 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 Code Acute Continuity Director for [facility] Fwd Diagnoses Abdominal pain R10.31 Abdominal location: right lower quadrant
[2020-12-31 09:24] LABS: OR HCG Qualitative Urine Negative (Negative)
[2020-12-31 09:46] LABS: Glucose Point of Care 100 mg/dL (70-110)
[2020-12-31 11:55] LABS: Glucose Point of Care 109 mg/dL (70-110)
--- NOTE | 2020-12-31 12:00 | ANE.PACU2 ---
Inpatient post-anesthesia follow up: Airway intact: Yes Vital signs: Temperature 100.9 F Pulse Rate [Right Radial] 114 Pulse Rate 92 Respiratory Rate 20 Blood Pressure [Ri ght Arm] 158/88 Blood Pressure 150/81 Pulse Oximetry 98 Oxygen Delivery Me thod [ Room Air Current Rate & Del tianna] Oxygen Delivery Me thod Room Air Oxygen Flow Rate Fraction of Inspir ed Oxygen Hydration adequate: Yes Nausea and vomiting: No Pain level: 2 Mental status: Baseline
--- NOTE | 2020-12-31 12:02 | XRR_ITS ---
PROCEDURE INFORMATION: Exam: XR Right Foot; Alignment Exam date and time: 12/31/2020 12:12 PM Age: 40 years old Clinical indication: Pain; Foot; Right; Prior surgery; Surgery date: 6+ months; Surgery type: Toes; Additional info: Purulence from tip of largest remaining digit TECHNIQUE: Imaging protocol: XR Right foot. Views: 1 or 2 views. COMPARISON: No relevant prior studies available. FINDINGS: Bones/joints: Amputation of the 1st and 3rd phalanges. Amputation of the 2nd mid and distal phalanges. Soft tissues: Normal. Vasculature: Scattered vascular calcifications. XR/XR foot RT 2V [id number] IMPRESSION: 1. Negative for acute bony abnormality. 2. Amputation of the 1st and 3rd phalanges. 3. Amputation of the 2nd mid and distal phalanges. 4. Scattered vascular calcifications.
--- NOTE | 2020-12-31 12:02 | XRR_ITS ---
PROCEDURE INFORMATION: Exam: XR Left Knee Exam date and time: 12/31/2020 12:12 PM Age: 40 years old Clinical indication: Other: Stump with warm area; Prior surgery; Surgery date: 6+ months; Surgery type: Lower leg; Additional info: Stump with fluctuant warm area TECHNIQUE: Imaging protocol: XR Left knee. Views: 3 views. COMPARISON: No relevant prior studies available. FINDINGS: Bones/joints: Amputation at the level of the mid tibia and fibula without acute bony abnormality. Diffuse decreased bone mineral density. Soft tissues: Normal. Vasculature: Scattered vascular calcifications. XR/XR knee LT 3V* [id number] IMPRESSION: 1. Amputation at the level of the mid tibia and fibula without acute bony abnormality. 2. Scattered vascular calcifications. 3. Diffuse decreased bone mineral density.
--- NOTE | 2020-12-31 12:02 | USR_ITS ---
PROCEDURE INFORMATION: Exam: US Left Non-Vascular Joint or Other Extremity Structure, Limited Exam date and time: 12/31/2020 2:41 PM Age: 40 years old Clinical indication: Symptoms: Swelling left stump; Prior surgery; Surgery date: 6+ months; Surgery type: Below the knee amputee; Additional info: Left stump with fluctuant warm area, new today TECHNIQUE: Imaging protocol: Left US joint or other nonvascular extremity structure or structures. Real-time ultrasound with image documentation. Limited study. COMPARISON: CT lower leg LT w con [id number] 03/08/2020 10:58 AM FINDINGS: Soft tissues: Soft tissues of the left stump are heterogeneous and thickened with increased vascularity. A discrete large abscess formation is not seen. US/US soft tissue/extremity [id number] IMPRESSION: Findings as stated above are consistent with soft tissue cellulitis. A discrete large abscess formation is not visualized.
--- NOTE | 2020-12-31 12:37 | P.PN_ITS ---
Subjective Subjective: Interval history: Overall patient is feeling better. She had a dose of Ativan early this morning for nausea. She received propofol for sedation along with I believe a couple of milligrams of Versed during her procedure. No pain medication was administered during that time. Denies ongoing severe abdominal pain, including through the night. Back pain is also better. EGD was done and showed grade B esophagitis and some bilious reflux. Plan to add cholestyramine. Currently not complaining of nausea. Discussed with her following a full liquid or pur?ed low acid diet for a couple of weeks, possibly with some Glucerna if she can afford it, before reintroducing more solid foods. We talked again about how the narcotics can exacerbate pain from gastroparesis by decreasing movement through the GI tract, as well as how it can mask something more significant that we need to identify. She expressed understanding and for the first time this visit did not request pain medication or other specific medications. Able to have a more complete conversation with patient today. She is complaining of pain in her left stump. Also some increased pain in her toes on her right foot. She has changes on examination as noted. Vitals/I&O/Wt Last Vital Signs Temp 98.4 F 12/31/20 09:45 Pulse 86 12/31/20 11:24 Resp 20 H 12/31/20 09:45 BP 165/77 12/31/20 09:45 Pulse Ox 94 12/31/20 11:24 12/30/20 12/31/20 12/31/20 22:59 06:59 14:59 Intake Total 600 / 600 Output Total 0 / 0 0 / 0 5 / 5 Balance 0 / 0 0 / 0 595 / 595 Physical Exam Narrative: EXAM NARRATIVE: Constitutional: Calm, cooperative Respiratory: Clear bilaterally Cardiovascular: Regular rhythm Abdomen: Abdomen is soft without degree of tenderness previously noted, positive bowel sounds Extremities/Skin: Today at patient's left stump there is a fluctuant area with warmth. No erythema. Its mildly tender to palpation. It is along the lateral lower portion of her stump and about 4 cm in diameter. This is new from my direct examination of her stump 2 days ago. Also new today is increased scabbing and some scant purulence from the largest remaining toe on her right foot, I believe it is the third digit. This also has a more fluctuant feel to it than previous. The discoloration to the wound is different from yesterday's examination. Previously just had some serous drainage. Wound is now encompassing approximately 1cm to 1.25 cm diameter at the tip of the toe. No erythematous streaks extending from either area. Neuro: Occasional jerking movements of the upper extremities Psych: Became tearful briefly towards the end of our discussion as we talked abo ut further evaluation of the findings to her extremities. She mentioned wanting to go home for her grandchild's birthday democrat and feeling like she was missing out. Let her know we would follow-up pending studies and see what we needed to do and she was calmer. Data : 12/28/20 06:45 12/29/20 04:42 A&P Assessment and plan (1) Gastritis: Bile reflux gastritis and grade B esophagitis. I am sure the degree of vomiting contributes to some extent to the esophageal findings. Status: Acute Qualifiers: Gastritis type: other gastritis Chronicity: acute Gastritis bleeding: without bleeding Qualified Code(s): K29.00 - Acute gastritis without bleeding (2) Pain of amputation stump of left lower extremity: with fluctuant area noted. Also with change in sore to right toe. CRP was in 90s yesterday after having been 17 last month. ESR was 57 which is sim ilar to prior values. Pain developed overnight per her report. Has not complained of pain in legs prior to today. Status: Acute (3) Intractable vomiting: At this time resolved without ongoing complaints of nausea Status: Acute Qualifiers: Nausea presence: with nausea Vomiting type: unspecified Qualified Code(s): R11.2 - Nausea with vomiting, unspecified (4) Abdominal pain: Improved Status: Acute Qualifiers: Abdominal location: right lower quadrant Qualified Code(s): R10.31 - Right lower quadrant pain (5) Back pain: Currently improved Status: Acute Qualifiers: Back pain location: back pain in unspecified location Chronicity: unspecified Back pain laterality: right Qualified Code(s): M54.9 - Dorsalgia, unspecified (6) Diabetic gastroparesis: Reported diagnosis. Did not have any results from motility studies available. Status: Chronic (7) Diabetes mellitus type 1: Status: Chronic Qualifiers: Diabetes mellitus complication status: with neurologic complications Diabetes mellitus complication detail: with polyneuropathy Qualified Code(s): E10.42 - Type 1 diabetes mellitus with diabetic polyneuropathy (8) Hypertension: Status: Chronic Qualifiers: Hypertension type: unspecified Qualified Code(s): I10 - Essential (primary) hypertension (9) History of financial difficulties: Status: Acute Additional A&P Information Check ultrasound and xray of left stump and xray right foot Continue PPI Cholestyramine trial Had previously discussed consideration for Carafate, Tums, other options to help with gastritis and reflux symptoms which patient declined Continue erythromycin Continue to minimize oral narcotic pain medications/avoid IV narcotics to limit disruptions to GI motility Laxatives ordered scheduled though often refused Change Phenergan to oral though will leave IM on if active vomiting is present Discontinue IM Benadryl Change Ativan to active vomiting after IM Phenergan DC Toradol given inflammation on EGD and having not taken any so far, but will consider resumption if needed for lower extremity painas long as on PPI Continue Tylenol, tramadol, Lidoderm patch and K pad as needed pain On usual long-acting insulin dose and sliding scale as needed Recommend that minimizing repeat CT scans going forward as she has had 6 CTs of the abdomen and pelvis in the last month without significant change in findings; if another CT is done it would be beneficial to consider CTA of the abdomen and pelvis to evaluate vascular status Low risk for VTE as getting out of bed; if reequires ongoing stay due to extremities, will initiate dvt prophylaxis as bed rest will be recommended, changing risk. Plans, findings and concerns discussed with patient she was given an opportunity to ask questions Supportive care otherwise Plan had originally been to consider discharge in next 12-24 hours after resumption of full liquids but will have to see what lower extremities tests and repeat examinations show. She is at high risk for re-admission/ED visit at baseline and Has challenges following up in outpatient setting. Full code Attestations Medical Necessity Statement*: Requires ongoing stay while we advance diet, transition to oral medications and evaluate new findings on physical exam today. 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 Code Acute [employer] for [employer] Diagnoses Gastritis K29.00 Gastritis type: other gastritis Chronicity: acute Gastritis bleeding: without bleeding Pain of amputation stump of left lower extremity T87.89; M79.605 Intractable vomiting R11.2 Nausea presence: with nausea Vomiting type: unspecified Abdominal pain R10.31 Abdominal location: right lower quadrant Back pain M54.9 Back pain location: back pain in unspecified location Chronicity: unspecified Back pain laterality: right Diabetic gastroparesis E11.43; K31.84 Diabetes mellitus type 1 E10.42 Diabetes mellitus complication status: with neurologic complications Diabetes mellitus complication detail: with polyneuropathy Hypertension I10 Hypertension type: unspecified History of financial difficulties Z87.897
[2020-12-31] MEDS: cholestyramine powder 4 gm Pkt PO (13:39)
[2020-12-31 15:00] LABS: Basophils % 0.2 %; Eosinophils % 0.3 %; Hematocrit 32.3 % (37.0-47.0); Hemoglobin 10.6 g/dL (11.5-15.3); Lymphocytes # 1.7 10^3/uL (0.8-4.8); Lymphocytes % 16.4 %; Mean Corpuscular HGB Conc 32.8 g/dL (30.0-36.0); Mean Corpuscular Hemoglobin 28.5 pg (28.0-34.0); Mean Corpuscular Volume 86.8 fL (81-99); Mean Platelet Volume 8.8 fL (7.4-10.4); Monocytes % 9.2 %; Neutrophils % 73.3 %; Nucleated Red Blood Cells % 0 %; Platelet Count 426 10^3/cmm (130-400); Red Blood Count 3.72 10^6/uL (4.1-5.3); Red Cell Distribution Width 13.8 % (12.1-15.1); White Blood Count 10.4 10^3/uL (4.0-10.0)
[2020-12-31 15:16] LABS: C Reactive Protein 252.8 mg/L (0.0-4.9)
[2020-12-31] MEDS: TRAMadol 50 mg Tablet PO (15:17)
[2020-12-31 16:10] LABS: Erythrocyte Sedimentation Rate 78 mm/hr (0-15)
--- NOTE | 2020-12-31 18:25 | PM.DCS ---
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: Status: Acute (3) Intractable vomiting: Status: Resolved Qualifiers: Nausea presence: with nausea Vomiting type: unspecified Qualified Code(s): R11.2 - Nausea with vomiting, unspecified (4) Abdominal pain: Status: Resolved Qualifiers: Abdominal location: right lower quadrant Qualified Code(s): R10.31 - Right lower quadrant pain (5) Back pain: Status: Resolved Qualifiers: Back pain laterality: right Back pain location: back pain in unspecified location Chronicity: unspecified Qualified Code(s): M54.9 - Dorsalgia, unspecified (6) Diabetic gastroparesis: Status: Chronic (7) Diabetes mellitus type 1: Status: Chronic Permanent problem details: diagnosed age 15, history of peripheral neuropathy, gastroparesis and nephropathy Qualifiers: Diabetes mellitus complication detail: with polyneuropathy Diabetes mellitus complication status: with neurologic complications Qualified Code(s): E10.42 - Type 1 diabetes mellitus with diabetic polyneuropathy (8) Hypertension: Status: Chronic Qualifiers: Hypertension type: unspecified Qualified Code(s): I10 - Essential (primary) hypertension (9) History of financial difficulties: Status: Acute Reason for Visit Reason for Visit: nausea, vomiting, abdominal pain, back pain Hospital Course Hospital Course Mrs. Le presented with nausea, vomiting, abdominal pain. As of this visit she had had 6 CTs of her abdomen in less than 30 days for similar symptoms. She has been admitted several times and discharged the following day. She is a known diabetic and has a diagnosis of gastric paresis. She is usually treated with narcotics because of the degree of pain that she has along with multiple antiemetics and motility agents. This admission she had had Dilaudid, morphine, Phenergan, Reglan, Haldol without any improvement in her symptoms. I talked with her for quite a bit about the fact that narcotics will just exacerbate gastroparesis as a slow down the GI tract motility. No IV narcotics were given during the course of this hospital stay. Erythromycin was initiated as Reglan, which have been used with other stays, as well as in the outpatient setting, had not shown any improvement. She did tolerate the erythromycin and had had bowel movements prior to discharge. There was approximately 36 hours in which she constantly asked for something for pain or nausea. When she did not get pain medication she sat in the shower. She was in the shower for such a continuous period of time that she caused some problems with flooding on the floor below while she was here. In addition to various second line antiemetic agents, patient was continued on a PPI. She refused several medicines such as Carafate, Tums and the like. Ultimately surgery was consulted for EGD. She was found to have grade B esophagitis and bilious reflux into the stomach. Was recommended to try her on some cholestyramine. We will continue this along with 2 weeks of erythromycin and scheduled laxative therapy. Recommend 30 days of PPI treatment. I did give her a prescription for Flexeril to help with back pain. On the day of discharge, after discussion had been made about planned discharge, patient pointed out an area of tenderness to her left stump and right toe that were bothering her. She had not previously complained of either area during the hospital stay. She had some swelling to the stump and and ultrasound was done. It showed soft tissue swelling without an abscess formation seen. Area was slightly warm to touch without redness. She had had an elevated sed rate at 252. I recommended that she stay in the hospital for initiation of antibiotics and further monitoring but she declined. I have prescribed Bactrim for 7 days. She has an appointment scheduled with Angelic Martinez who will be a new PCP for her next week. Referral was also made to wound care clinic for both of these wounds. Anticipate either her stump and or her toe will worsen requiring intervention. At the time of discharge patient was awake and alert. She was much calmer than she had been throughout the majority of the hospital stay. She was able to carry on a more complete conversation. Lungs were clear. She had a regular rhythm. She was able to walk with a walker. The tip of the large toe on her right foot had a approximately centimeter diameter discolored scab with one area draining a small amount of purulence. This had progressed over the time that she was here from a wound without a scab and serous drainage. On her left stump she had an area of soft tissue prominence/possible fluctuance approximately 4 to 5 cm in diameter along the lateral edge. In the future it would be helpful to have a CTA of the abdomen and pelvis (versus another CT of the abdomen and pelvis) if renal function will allow to facilitate evaluating for any vascular compromise in the abdomen as a potential cause of her pain. Gastric motility studies could also be considered. Attempts were made to get records of any such studies from other facilities but not successful. If she does in fact have gastroparesis, minimizing narcotics will be of significant help to long-term management. I repeatedly explained this to Mrs. Le throughout the hospital stay, describing how narcotics slow things down and making the pain worse or as the narcotics act like a Band-Aid on something that we need to figure out. During this hospital stay as she came off of narcotics, her abdominal pain improved and the vomiting stopped. Discharge Data Data Completed and Pending: Completed Studies During Hospitalization Category Date Time Status CT abdomen pelvis w con* [id number] Urge nt Cat Scan 12/27/20 12:00 Completed XR chest 1V angle ble [id number] Urgent Exams 12/27/20 12:00 Completed XR foot RT 2V 736 20 Routine Exams 12/31/20 12:02 Completed XR knee LT 3V* 73 562 Routine Exams 12/31/20 12:02 Completed US soft tissue/ex tremity [id number] Rout ine Ultrasound 12/31/20 12:02 Completed Pending at discharge Category Date Time Status Pathology: Surgic al [PTH] Routine Pth 12/31/20 09:16 Ordered Laboratory Results WBC 10.4 10^3/uL (4.0 -10.0) H 12/31/20 14:32 RBC 3.72 10^6/uL (4.1 -5.3) L 12/31/20 14:32 Hgb 10.6 g/dL (11.5-1 5.3) L 12/31/20 14:32 Hct 32.3 % (37.0-47.0 ) L 12/31/20 14:32 MCV 86.8 fL (81-99) 12/31/20 14:32 MCH 28.5 pg (28.0-34. 0) 12/31/20 14:32 MCHC 32.8 g/dL (30.0-3 6.0) 12/31/20 14:32 RDW 13.8 % (12.1-15.1 ) 12/31/20 14:32 Plt Count 426 10^3/cmm (130 -400) H 12/31/20 14:32 MPV 8.8 fL (7.4-10.4) 12/31/20 14:32 Neut % (Auto) 73.3 % 12/31/20 14:32 Lymph % (Auto) 16.4 % 12/31/20 14:32 [place] % (Auto) 9.2 % 12/31/20 14:32 Eos % (Auto) 0.3 % 12/31/20 14:32 Baso % (Auto) 0.2 % 12/31/20 14:32 Neut # (Auto) 7.60 10^3/uL (1.8 -7.7) 12/31/20 14:32 Lymph # (Auto) 1.7 10^3/uL (0.8- 4.8) 12/31/20 14:32 [place] # (Auto) 1.0 10^3/uL (0.2- 0.9) H 12/31/20 14:32 Eos # (Auto) 0.0 10^3/uL (0.0- 0.8) 12/31/20 14:32 Baso # (Auto) 0.0 10^3/uL (0.0- 0.1) 12/31/20 14:32 Nucleated RBC % (a uto) 0 % 12/31/20 14:32 Nucleated RBCs # 0.0 /100WBC 12/31/20 14:32 ESR 78 mm/hr (0-15) H 12/31/20 14:32 Sodium 136 mmol/L (136-1 45) 12/29/20 04:42 Potassium 3.5 mmol/L (3.5-5 .1) 12/29/20 04:42 Chloride 105 mmol/L (98-10 7) 12/29/20 04:42 Carbon Dioxide 23 mmol/L (22-29) 12/29/20 04:42 Anion Gap 11.5 (5-19) 12/29/20 04:42 BUN 8 mg/dL (6-20) 12/29/20 04:42 Creatinine 1.0 mg/dL (0.5-0. 9) H 12/29/20 04:42 GFR Calculation 60.8 mL/min (90-1 30) L 12/29/20 04:42 Glucose 106 mg/dL (65-115 ) 12/29/20 04:42 POC Glucose 109 mg/dL (70-110 ) 12/31/20 11:51 Calculated Osmolal ity 281 mOsm/kg (285- 295) L 12/29/20 04:42 Lactate 1.8 mmol/L (0.5-2 .2) 12/30/20 05:00 Calcium 7.9 mg/dL (8.5-10 .5) L 12/29/20 04:42 Magnesium 1.7 mg/dL (1.7-2. 3) 12/30/20 05:00 Total Bilirubin 0.5 mg/dL (0.15-1 .2) 12/27/20 13:40 AST 17 U/L (0-32) 12/27/20 13:40 ALT 14 U/L (0-33) 12/27/20 13:40 Alkaline Phosphata se 121 IU/L (35-105) H 12/27/20 13:40 Troponin T Baselin e 40 ng/L (0-10) H 12/29/20 18:05 Troponin T 120 Min aristides 37.62 ng/L (0-10) H 12/29/20 22:05 Delta Troponin T -2.38 ABS# (0-10) L 12/29/20 22:05 Troponin T Hi Sens 6Hr 38.12 ng/L (0-10) H 12/29/20 23:54 Troponin T Hi Sens 6Hr Delta -1.88 ng/L (0-12) L 12/29/20 23:54 C-Reactive Protein 252.8 mg/L (0.0-4 .9) H 12/31/20 14:32 Total Protein 7.0 g/dL (6.6-8.7 ) 12/27/20 13:40 Albumin 3.7 g/dL (3.5-5.2 ) 12/27/20 13:40 Globulin 3.3 g/dL (1.3-4.6 ) 12/27/20 13:40 Lipase 26 U/L (13-60) 12/27/20 13:40 HCG, Qual Negative (Negati ve) 12/27/20 13:40 Urine Color Yellow (Yellow) 12/27/20 14:22 Urine Appearance Clear (CLEAR) 12/27/20 14:22 Urine pH 6 (5-7) 12/27/20 14:22 Ur Specific Gravit y 1.015 (1.005-1.0 30) 12/27/20 14:22 Urine Protein 3+ (Negative) H 12/27/20 14:22 Urine Glucose (UA) 2+ (Normal) 12/27/20 14:22 Urine Ketones 1+ (Negative) H 12/27/20 14:22 Urine Blood 2+ (Negative) H 12/27/20 14:22 Urine Nitrate Negative (Negati ve) 12/27/20 14: Urine Bilirubin Neg (Negative) 12/27/20 14:22 Urine Urobilinogen 1 mg/dL (Negative ) H 12/27/20 14:22 Ur Leukocyte Estephania ase Negative (Negati ve) 12/27/20 14:22 Urine RBC 0-4 /hpf (0-2) H 12/27/20 14:22 Urine WBC 0-4 /hpf (0-5) H 12/27/20 14:22 Ur Squamous Epith Cells 0-4 /hpf (0-5) H 12/27/20 14:22 Amorphous Sediment Not Reportable 12/27/20 14:22 Urine Bacteria 1+ /hpf (NONE) H 12/27/20 14:22 Urine Mucus 1+ /hpf 12/27/20 14:22 Urine HCG, Qual Negative (Negati ve) 12/31/20 09:21 Impressions Abdomen/Pelvis CT 12/27/20 12:00 IMPRESSION: 1. No acute findings in the abdomen or pelvis. 2. No changes from comparison. Radiation Dose CTDIVOL = (mGy): DLP = 2028.47 (mGy-cm) Chest X-Ray 12/27/20 12:00 IMPRESSION: No acute findings. Foot X-Ray 12/31/20 12:02 IMPRESSION: 1. Negative for acute bony abnormality. 2. Amputation of the 1st and 3rd phalanges. 3. Amputation of the 2nd mid and distal phalanges. 4. Scattered vascular calcifications. Knee X-Ray 12/31/20 12:02 IMPRESSION: 1. Amputation at the level of the mid tibia and fibula without acute bony abnormality. 2. Scattered vascular calcifications. 3. Diffuse decreased bone mineral density. Soft Tissue Ultrasound 12/31/20 12:02 IMPRESSION: Findings as stated above are consistent with soft tissue cellulitis. A discrete large abscess formation is not visualized. Vitals: Last Vital Signs Temp 98.4 F 12/31/20 16:00 Pulse 83 12/31/20 16:00 Resp 18 12/31/20 16:00 BP 161/103 12/31/20 16:00 Pulse Ox 94 12/31/20 11:24 Discharge Plan Discharge Patient Disposition: Home Condition: Stable Prescriptions: New cholestyramine (with sugar) 4 gram Powder In Packet 4 g PO BID Qty: 60 RF: 0 cyclobenzaprine 10 mg Tablet 10 mg PO TID PRN (Reason: Muscle Spasms) Qty: 30 RF: 0 erythromycin ethylsuccinate 200 mg/5 mL Suspension For Reconstitution 200 mg PO TIDWM Qty: 200 RF: 0 pantoprazole 40 mg Tablet,Delayed Release (Dr/Ec) 40 mg PO BID Qty: 60 RF: 0 Stool Softener-Laxative 8.6-50 mg Tablet 1 tab PO BID Qty: 60 RF: 0 promethazine 25 mg Tablet 25 mg PO Q6H PRN (Reason: Nausea) Qty: 30 RF: 0 Bactrim DS 800-160 mg tablet 1 tab PO BID 7 Days Qty: 14 RF: 0 Continued Lantus Solostar U-100 Insulin 100 unit/mL (3 mL) insulin pen 5 unit SUBCUT BEDTIME RF: 0 insulin lispro 100 unit/mL Insulin Pen See Rx Instructions .ROUTE .COMPLEX RF: 0 Discharge Orders: Discharge Order (Routine); Ordered 12/31/20 Ordered By: Jessica Rubio Referrals: Angelic Martinez MD [Physician] - 01/03/21 9:30 am [facility], [Staff Physician] - 1 week (Please call Saturday morning to make an appointment for 1 week. Diabetic with wounds to right foot remaining toes and cellulitis left bka stump) Discharge Diet: Advance as tolerated, GI Soft and Full LIquid Discharge Activity: Increase activity as tolerated Patient Instructions: Sulfamethoxazole/Trimethoprim (By mouth), Erythromycin (By mouth), Promethazine (By mouth), Cyclobenzaprine (By mouth), Laxative, Stool Softeners (By mouth), Pantoprazole (By mouth), Diabetic gastroparesis (GEN), Cellulitis (DC), Chronic Wound Care (GEN), Upper Gastrointestinal Endoscopy (DC), GI Discharge Instructions, Opioid Safety Activity Restrictions/Additional Instructions: You came with nausea, vomiting and abdominal pain. CT imaging again did not show any abnormalities. Laboratory studies were not that remarkable. You were given multiple doses of pain medications in the emergency room. Concern has been that you have diabetic gastroparesis. This is a condition in which diabetes affects the nerves in your stomach and makes them not work the way they are supposed to. Basically your stomach and your bowels gets stuck and things will not move through them. Narcotic pain medications can actually make this condition worse. You had had no relief with narcotic pain medications and other medicines administered in the emergency room. After admission we did not give you any further narcotic pain medications. You were started on erythromycin which is an antibiotic that we often use when other medications do not work for gastroparesis. You have not had any success with Reglan which has previously been tried. You reported that you had filled your prescriptions and taken them as prescribed. Arrangements were made for an EGD to be done. This did show that you had some irritation in your esophagus and some evidence of bile reflux into your stomach. I have started you on a medication called cholestyramine to help with the reflux in your stomach. I have also ordered for you to have a proton pump inhibitor for a month which is a stomach medicine to treat your esophagus and stomach irritation. You told me that Carafate and a few other medications did not work for you so they were not prescribed. I strongly encourage you to take regular laxative therapy if you are not having a bowel movement every day. Consideration should be given to a motility study and even possibly transfer to a stomach specialist if you continue to present with such intractable symptoms every couple of days. You have had 6 CAT scans of your abdomen and pelvis in the last 30 days. If you require another CAT scan it would be beneficial to have one called a CTA of the abdomen and pelvis. You complained of low back pain while you were here. CT of the lumbar spine did not show any acute abnormalities. You were able to walk around with a walker. Chest x-ray was normal during your stay. On the day of discharge you complained of pain in your right foot and your left stump. X-rays of your foot and your left leg did not show any acute bony abnormalities per radiology interpretation. An ultrasound of your left leg showed some soft tissue cellulitis without abscess formation seen. This is in the same region where you have previously had a fluid collection. I started you on some Bactrim for early cellulitis in this area to take for the next 7 days. I have also made a referral to wound care clinic given your known history of diabetic wounds. I am concerned that this area could develop into an abscess that needs to be drained. You did have a nonspecific elevation in an inflammatory marker called a CRP. You need to make sure you are not resting your stump on the walker. Keep it elevated. You should also keep your right foot wound clean and dry. It was dressed by nursing staff prior to discharge. You have an appointment with Dr. Martinez at [facility] on the . If you have not heard from wound care clinic please contact them or have Dr. Martinez facilitate getting you into see them sooner. I encourage you to eat liquid or soft pur?ed foods with Glucerna supplements (or other diabetic nutritional supplement) until your have gone a couple of days without nausea and vomiting and abdominal pain. Discharge Attestations Time Spent in Discharge Care*: greater than 30 min Specific Discharge Activities: educating patient, discussing with immigration case manager/social workers/dc planners, documenting/other paperwork and evaluating patient/reviewing data Quality Metrics Clinical Quality Measures During this hospital stay, did patient experience: None 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 Code Acute [facility] note Diagnoses Gastritis K29.00 Chronicity: acute Gastritis bleeding: without bleeding Gastritis type: other gastritis Pain of amputation stump of left lower extremity T87.89; M79.605 Intractable vomiting R11.2 Nausea presence: with nausea Vomiting type: unspecified Abdominal pain R10.31 Abdominal location: right lower quadrant Back pain M54.9 Back pain laterality: right Back pain location: back pain in unspecified location Chronicity: unspecified Diabetic gastroparesis E11.43; K31.84 Diabetes mellitus type 1 E10.42 Diabetes mellitus complication detail: with polyneuropathy Diabetes mellitus complication status: with neurologic complications Hypertension I10 Hypertension type: unspecified History of financial difficulties Z87.448
--- NOTE | 2020-12-31 19:02 | PC.NURSE ---
pt verbalizes understanding of discharge instructions, home medications, and follow up appointments. IV removed. pt states that her ride should be here shortly. all current questions answered at this time.
[2020-12-31] MEDS: promethazine 25 mg/mL SDV 1 mL 50 MG IM (20:25)
--- NOTE | 2020-12-31 22:15 | PC.NURSE ---
Patient off floor at this time for discharge by wheelchair with [employer] to personal vehicle that family friend is driving. Patient reports to have all personal belongings and discharge paperwork with her. No IV access to remove.
[2021-01-01 01:27] LABS: Glucose Point of Care 119 mg/dL (70-110)
--- NOTE | 2021-01-02 09:18 | PC.SOCIAL ---
Addendum entered by Brina Mars RN 01/09/21 06:32: Late Entry for Patient returned call same day as this call made and discussed we will have meds mailed to her. Talked to our pharmacy and they will get the meds transferred and mailed one of them was going to be high and Dr Rubio was called to see if can be switched but she indicates she will pay the cost. All meds should have been sent to patient. Original Note: Called [facility] pharmacy [facility] about message left over weekend that patient's erythromycin medication was going to be $500. Called pharmacy back this am and discussed this. At this time they are unable to reach patient and she has not picked up her other medications either. Asked the costs of the other medications and was told the Cholesystramine packets were $98 dollars and the remainder meds were $10-15 each other than the one mentioned that is $500 and the stool softener which is cheaper over the counter. Tried to reach patient to see about meds and left message. Called but phone had somewhat poor hospital receptionist. did indicate he would talk to her and have her call me about medications. Patient continues to return to hospital and based on notes has not filled scripts at discharge previously.
== END 2020-12-31 22:15 | disposition home or self-care (01) | DRG 74 ==
LOC: ER 17:37 → MEDSURG 17:53
PROVIDERS: Anesthesiology; Surgery; Admitting Provider Hospitalist; Emergency Provider Family Medicine; Visit Provider Hospitalist
PROC: 0DJ08ZZ Inspection of Upper Intestinal Tract, Via Natural or Artificial Opening Endoscopic (ICD-10-PCS; CPT 43235; principal; 2020-12-31 08:15)
DX: E10.43 Type 1 diabetes mellitus with diabetic autonomic (poly)neuropathy (principal); E10.42 Type 1 diabetes mellitus with diabetic polyneuropathy; E10.22 Type 1 diabetes mellitus with diabetic chronic kidney disease; E10.39 Type 1 diabetes mellitus with other diabetic ophthalmic complication; K31.84 Gastroparesis; I12.9 Hypertensive chronic kidney disease with stage 1 through stage 4 chronic kidney disease, or unspecified chronic kidney disease; N18.2 Chronic kidney disease, stage 2 (mild); M54.9 Dorsalgia, unspecified; E78.5 Hyperlipidemia, unspecified; Z89.512 Acquired absence of left leg below knee; Z89.421 Acquired absence of other right toe(s); I25.10 Atherosclerotic heart disease of native coronary artery without angina pectoris; Z95.5 Presence of coronary angioplasty implant and graft; Z93.1 Gastrostomy status; Z87.891 Personal history of nicotine dependence; Z91.120 Patient's intentional underdosing of medication regimen due to financial hardship; K29.70 Gastritis, unspecified, without bleeding; K20.90 Esophagitis, unspecified without bleeding; M79.605 Pain in left leg; M79.674 Pain in right toe(s); M79.89 Other specified soft tissue disorders
CPT/HCPCS: 36415; 36416; 43239; 71045; 73562; 73620; 74177; 76882; 80048; 80053; 81001; 81025; 82962; 83605; 83690; 83735; 84484; 84703; 85025; 85651; 86140; 88305; 93005; 96372; 96374; C9113; G0378; J0330; J1170; J1200; J1630; J1815 ×2; J1885; J2060; J2360; J2405; J2550; J2704; J2765; J3475; J3490; J7030; Q9967

== ENCOUNTER 2021-01-04 00:46 | Emergency (ER) | payer MEDICAID, SELFPAY ==
[2021-01-04 00:50] VITALS: BP 175/103; PULSE 82; RESP 22; TEMP 36.9; O2SAT 99; BMI 28.0
--- NOTE | 2021-01-04 01:02 | ED_ITS ---
HPI - Extremity Problem General: Chief complaint: Extremity Problem,Nontraumatic Stated complaint: POST SURGERY COMPLICATIONS Time Seen by Provider: 01/04/21 00:50 History of Present Illness: HPI Narrative: Patient is a 40 female comes to the ED with localized swelling and pain in left lower extremity. Patient had a below the knee amputation of the left lower extremity back in July 2019. She has a past medical history of hypertension, diabetic gastroparesis and is a type I diabetic. She was recently hospitalized due to abdominal pain on December 27 and discharged on December 31. she states that on Saturday the she started getting some redness, pain and swelling on her left lower extremity at the end of amputation site. She was still in the hospital at that time and they evaluated it and performed an ultrasound and did not see any abscess. The hospitalist then made a referral to wound care clinic for reevaluation and she was discharged home with a prescription for Bactrim. She says symptoms have just progressed in the last 24 hours the pain, redness and swelling in left lower extremity have gotten a lot worse. She says there is been a little bit of purulent drainage. Patient has a history of MRSA and staph infections. Patient says she has had a history of needing to get some tissue debridement and there at amputation site in the past due to an infection. Associated symptoms: Deny chest pain, fever(s) or rash Review of Systems Const: Denies: fever(s), chills or fatigue Eyes: Denies: change in vision or eye discomfort ENMT: Denies: throat pain, odynophagia, nasal discharge or nasal congestion Card: Denies: chest pain, palpitations, edema, swelling of feet/ankles, dyspnea on exertion or orthopnea Resp: Denies: dyspnea, productive cough or non-productive cough GI: Denies: abdominal pain, nausea, vomiting, diarrhea, constipation or hematochezia : Denies: flank pain, dysuria or hematuria Musc: Denies: neck pain, back pain or extremity swelling Skin/Breast: Reports: new lesions (Erythemic, warm and swollen tender lesion on left lower extremity); Denies: rash Neuro: Denies: headache(s), numbness in extremities or weakness in extremities PFS ED PFSH: Medical History Back pain CKD (chronic kidney disease) stage 2, GFR 60-89 ml/min baseline Cr is around 1.0 Coronary artery disease hx of stenting Diabetes mellitus type 1 diagnosed age 15, history of peripheral neuropathy, gastroparesis and nephropathy Diabetic foot ulcer s/p surgical intervention and eventual amputation Diabetic gastroparesis Diabetic ophthalmopathy DKA (diabetic ketoacidoses) Foot osteomyelitis, right Hyperlipidemia Hypertension Non-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 Surgical History Below-knee amputation of left lower extremity H/O esophagogastroduodenoscopy (12/31/20) Bile reflux gastritis, grade B esophagitis H/O exploratory laparotomy x 3 History of amputation of right forefoot Hx of cholecystectomy Previous section x 3 S/P coronary artery stent placement x 1 S/P percutaneous endoscopic gastrostomy (PEG) tube placement Family History Unknown Diabetes extensive, type II Other CHF (congestive heart failure) Social History Smoking and tobacco status: former smoker Quit status (tobacco): has quit using tobacco Former quit date comment: 15 yrs ago Alcohol intake: former Former alcohol use details: 15 yrs ago Household members: spouse Marital status: Sexually active: Yes (1, ) Female Reproductive History: Date of last menstrual period: 12/17/20 Physical Exam Const: COMMON NORMALS: no acute distress, patient oriented x3 and alert GENERAL APPEARANCE: cooperative and comfortable HENMT: COMMON NORMALS: normocephalic HEAD & SCALP: normocephalic MOUTH: Normal oral and palatal mucosa present THROAT: posterior oropharynx normal and uvula midline Neck/C-Spine: COMMON NORMALS: supple GENERAL: Yes normal visual inspection Resp: COMMON NORMALS: normal respiratory effort, No retractions, No use of accessory muscles and clear to auscultation bilaterally AUSCULTATION: clear to auscultation bilaterally Cardio: COMMON NORMALS: regular rate, regular rhythm, S1 normal heart sound present, S2 normal heart sound present, No gallops present (Cardio), No clicks present (Cardio), No murmurs present (Cardio) and Peripheral pulses 2+ throughout RATE: regular rate RHYTHM: regular rhythm HEART SOUNDS: S1 normal heart sound present and S2 normal heart sound present PERIPHERAL PULSES: Peripheral pulses 2+ throughout GI: COMMON NORMALS: Normal to inspection, nondistended, normoactive bowel sounds present, Soft to palpation, non-tender and no masses PALPATION: Yes Soft to palpation : COMMON NORMALS: Yes no CVA tenderness BLADDER/KIDNEY EXAM: Yes no CVA tenderness Back/Pelvis: COMMON NORMALS: no CVA tenderness Extremity: NARRATIVE EXTREMITY EXAM: Distal aspect of left lower extremity at amputation site. Patient has some erythema, warmth, swelling and tenderness. Nonconsolidated and indurated. No visible purulent drainage seen. Findings suggestive of cellulitis with possible abscess developing. GENERAL: Yes normal exam except as noted and Yes amputation (Below the knee amputation of left lower extremity.) Neuro: COMMON NORMALS: patient oriented x3 and moves all extremities SENSORIUM/ORIENTATION: Yes alert Skin: NARRATIVE SKIN EXAM: Distal aspect of left lower extremity at amputation site. Patient has some erythema, warmth, swelling and tenderness. Nonconsolidated and indurated. No visible purulent drainage seen. Findings suggestive of cellulitis with possible abscess developing. GENERAL SKIN EXAM: dry skin Procedures Abscess I/D Site: lower extremity (Left lower extremity at distal and amputation site.) Side (if applicable): left Local Anesthetic: lidocaine 1% Amount of anesthesia used (mL): 10 Technique: incised with #11 blade Amount of fluid expressed (mL): 20 (Malodorous purulent fluid drained.) Irrigation: Yes Packing used?: plain Course ED course: I went in with Dr. Delaney and he performed a bedside ultrasound on lower extremity to check for possible developing abscess. An abscess pocket was identified Reevaluation(s): Reevaluation #1: I discussed with patient about her current medications and she says that she has a prescription for Bactrim that she needs to cotton pick[facility]. She says that the they are going to mail her prescription of Bactrim might take a day or 2 To get it. I told her it is important for her to get that prescription filled and to start taking it as soon as possible. I will send her home with 2 tablets for her to take tomorrow as needed if her prescription is not available yet. Time: 03:05 Vital Signs: Vital signs: Vital Signs Temperature 98.4 F 01/04/21 00:50 Pulse Rate 102 H 01/04/21 02:04 Respiratory Rate 18 01/04/21 02:04 Blood Pressure 175/103 01/04/21 02:04 Pulse Oximetry 95 01/04/21 02:04 MDM - Extremity (Nontraumatic) MDM Narrative: Medical decision making narrative: Patient is a 40-year-old female comes to the ED with an abscess and surrounding cellulitis on left lower extremity near amputation site. Exam findings show swelling, warmth, erythema and tenderness at stump at below the knee left lower extremity amputation. Vitals are stable. White blood cell count 8, hemoglobin of 9.5 patient had a hemoglobin of 10.6 on December 31. CRP 76.6 patient had a CRP of 252 on December 31 so it is trending downwards. All other labs unremarkable. Bedside ultrasound was performed by Dr. Delaney and an abscess pocket was identified. Abscess I&D was performed and lidocaine 1% was used as local. I used a 11 blade to make the incision and approximately 20 mL of malodorous purulent fluid drained out. I irrigated the abscess site and then placed packing. Abscess culture obtained and sent to lab and is pending. Patient has a history of previous MRSA and staph infections so she was given IV Vancomycin while here in the ED. Patient currently has a prescription for Bactrim that was given to her at discharge from hospital on December 31 and it is currently being mailed to her house. I told patient to make sure she starts taking Bactrim soon as possible and I also sent her home with 2 Bactrim tablets to take tomorrow if her Bactrim prescription is not and by that time. I told her she needs to return to the ED or medical provider in 24 to 48 hours to have abscess rechecked and to have packing removed. Return to ED precautions given. I placed an order with case management for patient to be referred to wound care clinic and I told patient that case management should be contacting her about scheduling that in the next couple days. Patient understood and agreed with plan. Lab Data: Attestation: I reviewed the patient's lab results. Labs: Lab Results 01/04/21 01/04/21 Range/Units 01:00 01:00 WBC 8.0 (4.0-10.0) 10^3/ uL RBC 3.40 L (4.1-5.3) 10^6/u L Hgb 9.5 L (11.5-15.3) g/dL Hct 29.3 L (37.0-47.0) % MCV 86.2 (81-99) fL MCH 27.9 L (28.0-34.0) pg MCHC 32.4 (30.0-36.0) g/dL RDW 13.2 (12.1-15.1) % Plt Count 457 H (130-400) 10^3/c mm MPV 8.6 (7.4-10.4) fL Neut % (Auto) 66.8 % Lymph % (Auto) 22.6 % [place] % (Auto) 7.9 % Eos % (Auto) 1.9 % Baso % (Auto) 0.5 % Neut # (Auto) 5.34 (1.8-7.7) 10^3/u L Lymph # (Auto) 1.8 (0.8-4.8) 10^3/u L [place] # (Auto) 0.6 (0.2-0.9) 10^3/u L Eos # (Auto) 0.2 (0.0-0.8) 10^3/u L Baso # (Auto) 0.0 (0.0-0.1) 10^3/u L Nucleated RBC % (a uto) 0 % Nucleated RBCs # 0.0 /100WBC Sodium 137 (136-145) mmol/L Potassium 3.9 (3.5-5.1) mmol/L Chloride 101 (98-107) mmol/L Carbon Dioxide 24 (22-29) mmol/L Anion Gap 15.9 (5-19) BUN 5 L (6-20) mg/dL Creatinine 0.9 (0.5-0.9) mg/dL GFR Calculation 68.7 L (90-130) mL/min Glucose 119 H (65-115) mg/dL Calculated Osmolal ity 282 L (285-295) mOsm/k g Calcium 8.3 L (8.5-10.5) mg/dL Total Bilirubin 0.3 (0.15-1.2) mg/dL AST 14 (0-32) U/L ALT 18 (0-33) U/L Alkaline Phosphata se 139 H (35-105) IU/L C-Reactive Protein 76.6 H (0.0-4.9) mg/L Total Protein 6.5 L (6.6-8.7) g/dL Albumin 3.1 L (3.5-5.2) g/dL Globulin 3.4 (1.3-4.6) g/dL Discharge Plan Discharge Patient Disposition: Home Clinical Impression: Abscess Cellulitis Qualifiers: Site of cellulitis: extremity Site of cellulitis of extremity: lower extremity Laterality: left Qualified Code(s): L03.116 - Cellulitis of left lower limb Condition: Stable Prescriptions: No Action Lantus Solostar U-100 Insulin 100 unit/mL (3 mL) insulin pen 5 unit SUBCUT BEDTIME RF: 0 insulin lispro 100 unit/mL Insulin Pen See Rx Instructions .ROUTE .COMPLEX RF: 0 cholestyramine (with sugar) 4 gram Powder In Packet 4 g PO BID Qty: 60 RF: 0 cyclobenzaprine 10 mg Tablet 10 mg PO TID PRN (Reason: Muscle Spasms) Qty: 30 RF: 0 erythromycin ethylsuccinate 200 mg/5 mL Suspension For Reconstitution 200 mg PO TIDWM Qty: 200 RF: 0 pantoprazole 40 mg Tablet,Delayed Release (Dr/Ec) 40 mg PO BID Qty: 60 RF: 0 Stool Softener-Laxative 8.6-50 mg Tablet 1 tab PO BID Qty: 60 RF: 0 promethazine 25 mg Tablet 25 mg PO Q6H PRN (Reason: Nausea) Qty: 30 RF: 0 Bactrim DS 800-160 mg tablet 1 tab PO BID 7 Days Qty: 14 RF: 0 Discharge Orders: Discharge ED (Routine); Ordered 01/04/21 Ordered By: Roger Salas Discharge Diet: Regular Discharge Activity: Increase activity as tolerated Patient Instructions: Cellulitis (ED), Abscess Incision and Drainage (ED), Abscess (ED) Activity Restrictions/Additional Instructions: Follow-up with medical provider as directed. You need to return to the ED or other healthcare provider to have abscess rechecked and packing removed in the next 24 to 48 hours. Case management should be contacting you in the next several days to set up an appointment with wound care clinic. Get your previously prescribed Bactrim prescription filled and start taking STEWART. I will send you home with 2 tablets of Bactrim to take tomorrow, if you are still waiting on your Bactrim prescription. Take 1 tablet of Bactrim in the morning tomorrow and 1 tablet in the evening. Return to the ER or your medical provider if condition worsens. Please read and understand discharge instructions. Thank you for choosing [facility] for your healthcare needs today. Please realize this is an emergency room and that we are providing you with a medical screening exam and this may not be complete and all inclusive of all the testing and or work up that you may need to determine your ailment or severity of your illness. It is very important that you follow up as instructed or that you return to the Emergency Department should you have concerns or if your condition changes or worsens in any way. 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 Code ED Multigraph Operator for Kim Mitchell Exam Comprehensive
[2021-01-04 01:06] VITALS: PULSE 107
[2021-01-04] MEDS: sodium chloride 0.9% 500 ML 999 ML IV (01:10)
[2021-01-04 01:14] VITALS: RESP 18; O2SAT 97
[2021-01-04] MEDS: HYDROmorphone 1 mg/mL INJ 1 mL 0.5 MG IVP (01:14)
[2021-01-04 01:20] LABS: Basophils % 0.5 %; Eosinophils # 0.2 10^3/uL (0.0-0.8); Eosinophils % 1.9 %; Hematocrit 29.3 % (37.0-47.0); Hemoglobin 9.5 g/dL (11.5-15.3); Lymphocytes # 1.8 10^3/uL (0.8-4.8); Lymphocytes % 22.6 %; Mean Corpuscular HGB Conc 32.4 g/dL (30.0-36.0); Mean Corpuscular Hemoglobin 27.9 pg (28.0-34.0); Mean Corpuscular Volume 86.2 fL (81-99); Mean Platelet Volume 8.6 fL (7.4-10.4); Monocytes # 0.6 10^3/uL (0.2-0.9); Monocytes % 7.9 %; Neutrophils # 5.34 10^3/uL (1.8-7.7); Neutrophils % 66.8 %; Nucleated Red Blood Cells % 0 %; Platelet Count 457 10^3/cmm (130-400); Red Cell Distribution Width 13.2 % (12.1-15.1)
[2021-01-04 01:43] LABS: Alanine Aminotransferase 18 U/L (0-33); Albumin Level 3.1 g/dL (3.5-5.2); Alkaline Phosphatase 139 IU/L (35-105); Aspartate Amino Transferase 14 U/L (0-32); Blood Urea Nitrogen 5 mg/dL (6-20); C Reactive Protein 76.6 mg/L (0.0-4.9); Calcium 8.3 mg/dL (8.5-10.5); Carbon Dioxide 24 mmol/L (22-29); Chloride 101 mmol/L (98-107); Globulin 3.4 g/dL (1.3-4.6); Glomerular Filtration Rate 68.7 mL/min (90-130); Glucose 119 mg/dL (65-115); Osmolality Calculated 282 mOsm/kg (285-295); Sodium 137 mmol/L (136-145); Total Bilirubin 0.3 mg/dL (0.15-1.2); Total Protein 6.5 g/dL (6.6-8.7)
[2021-01-04 01:49] LABS: Anion Gap 15.9 (5-19); Potassium 3.9 mmol/L (3.5-5.1)
[2021-01-04 02:04] VITALS: BP 175/103; PULSE 102; RESP 18; O2SAT 95
[2021-01-04] MEDS: vancomycin 1,500 MG/300 ML PIGGYBACK 200 MG IV (02:17)
[2021-01-04] MEDS: lidocaine 1% INJ 20 mL INJECTION (02:20)
[2021-01-04] MEDS: HYDROmorphone 1 mg/mL INJ 1 mL IVP (03:06)
[2021-01-04] MEDS: sulfamethoxazole-trimeth DS 160-800 mg Tablet 2 TAB PO (03:12)
[2021-01-04 04:12] VITALS: BP 148/91; PULSE 88; RESP 16; O2SAT 98
--- NOTE | 2021-01-06 11:04 | DCPLANNER ---
branch manager had message to schedule a follow up appointment for Wound Care. branch manager called Wound Care clinic, spoke with Chuyita, a follow up appointment was not scheduled at this time, it was decided that field nurse case manager would call patient and tell patient that when she wanted to schedule a follow up appointment that she can call the Wound Care clinic and schedule a follow up appointment. branch manager called patients and explained to the that the clinic had patients information and when the patient wants to schedule an appointment she can call and schedule the appointment.
== END 2021-01-04 07:46 | disposition home or self-care (01) ==
PROVIDERS: Emergency Provider Physician Assistant
DX: L03.116 Cellulitis of left lower limb (principal); L02.416 Cutaneous abscess of left lower limb; Z89.512 Acquired absence of left leg below knee; I12.9 Hypertensive chronic kidney disease with stage 1 through stage 4 chronic kidney disease, or unspecified chronic kidney disease; E10.22 Type 1 diabetes mellitus with diabetic chronic kidney disease; N18.2 Chronic kidney disease, stage 2 (mild); I25.10 Atherosclerotic heart disease of native coronary artery without angina pectoris; E78.5 Hyperlipidemia, unspecified; Z87.891 Personal history of nicotine dependence
CPT/HCPCS: 10060; 80053; 85025; 86140; 87070; 87075; 87077; 87186; 87205; 96365; 96366; 96375; 96376; 99284; J1170; J3370; J7040

== ENCOUNTER 2021-01-07 09:40 | Emergency (ER) | payer MEDICAID, SELFPAY ==
[2021-01-07 09:47] VITALS: BP 154/90; PULSE 94; RESP 18; TEMP 36.7; O2SAT 100; BMI 28.0
--- NOTE | 2021-01-07 09:53 | XRR_ITS ---
PROCEDURE INFORMATION: Exam: XR Abdomen Exam date and time: 01/07/2021 10:32 AM Age: 40 years old Clinical indication: Abdominal pain; Acute; Additional info: Abd pain TECHNIQUE: Imaging protocol: XR of the abdomen. Views: 2 Views. Upright and supine views. COMPARISON: CT abdomen pelvis w con* [id number] 12/27/2020 3:31 PM FINDINGS: Gastrointestinal tract: Normal. No bowel dilation. Intraperitoneal space: Normal. No free air. Organs: Stable cholecystectomy. Bones/joints: Idiopathic S-shaped scoliosis. XR/XR acute abdomen series [id number] IMPRESSION: No acute findings.
--- NOTE | 2021-01-07 09:54 | W.ED.ABDPA2 ---
HPI - Abdominal Pain General: Chief Complaint: Nausea/Vomiting/Diarrhea Stated Complaint: ABD PAIN; N/V Time Seen by Provider: 01/07/21 09:50 Source: patient, family and RN notes reviewed Limitations: no limitations History of Present Illness: HPI narrative: This patient presents to the emergency department with complaint of right lower right-sided abdominal pain. Patient states that she has a history of gastroparesis. Patient is a poor history of severe diabetes and subsequently has had a below-knee amputation on the left and is lost several of her toes on the right. Patient's had multiple surgeries and even had a feeding tube in the past. Patient has a long history of multiple visits to the emergency department. Patient states this has been going on for the past 2 to 3 days. Will do medical evaluation treat as needed. MD elicited complaint: abdominal pain Pertinent past history: none Onset (ago): day(s) (5) Pain Consistency: intermittent Severity: moderate Associated Symptoms: Denies chills, dysuria, fever(s), nausea and vomiting Related Data: Date of Last Menstrual Period: 12/17/20 Review of Systems General: Reports: 10 or more systems reviewed and unremarkable except in HPI and below Const: Denies: fever(s) or chills Eyes: Denies: change in vision or blurry vision ENMT: Denies: throat pain, hoarseness or mouth pain Card: Denies: chest pain, palpitations, irregular heart rhythm, edema, swelling of feet/ankles or lightheadedness Resp: Denies: dyspnea, productive cough, non-productive cough, wheezing or pain on inspiration GI: Denies: nausea or vomiting : Denies: dysuria Musc: Denies: neck pain, back pain, extremity pain, extremity swelling, joint pain, joint swelling, joint redness, joint warmth or limited range of motion Skin/Breast: Denies: rash, pruritus, erythema or skin tenderness Neuro: Denies: headache(s), numbness in extremities or weakness in extremities Psych: Denies: anxiety or depression PFS ED PFSH: Medical History Back pain CKD (chronic kidney disease) stage 2, GFR 60-89 ml/min baseline Cr is around 1.0 Coronary artery disease hx of stenting Diabetes mellitus type 1 diagnosed age 15, history of peripheral neuropathy, gastroparesis and nephropathy Diabetic foot ulcer s/p surgical intervention and eventual amputation Diabetic gastroparesis Diabetic ophthalmopathy DKA (diabetic ketoacidoses) Foot osteomyelitis, right Hyperlipidemia Hypertension Non-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 Surgical History Below-knee amputation of left lower extremity H/O esophagogastroduodenoscopy (12/31/20) Bile reflux gastritis, grade B esophagitis H/O exploratory laparotomy x 3 History of amputation of right forefoot Hx of cholecystectomy Previous section x 3 S/P coronary artery stent placement x 1 S/P percutaneous endoscopic gastrostomy (PEG) tube placement Family History Unknown Diabetes extensive, type II Other CHF (congestive heart failure) Social History Smoking and tobacco status: former smoker Quit status (tobacco): has quit using tobacco Former quit date comment: 15 yrs ago Alcohol intake: former Former alcohol use details: 15 yrs ago Household members: spouse Marital status: Sexually active: Yes (1, ) Female Reproductive History: Date of last menstrual period: 12/17/20 Physical Exam Const: COMMON NORMALS: no acute distress, average body habitus, patient oriented x3, no limitations, healthy appearing, alert and well nourished HENMT: COMMON NORMALS: normocephalic, atraumatic, external ears normal, EAC's normal, TM's normal bilaterally, Normal external nose present and Normal nasal mucous membranes and turbinates present HEAD & SCALP: normocephalic and atraumatic NOSE: Normal external nose present and Normal nasal mucous membranes and turbinates present EXTERNAL EAR: Yes external ears normal EXTERNAL AUDITORY CANAL: EAC's normal TYMPANIC MEMBRANE: TM's normal bilaterally Neck/C-Spine: COMMON NORMALS: full ROM, no lymphadenopathy, supple, no meningeal signs, no JVD, Thyroid normal and No carotid bruits THYROID: Thyroid normal Chest: COMMONS NORMALS: normal inspection of the chest, normal palpation of entire chest wall, normal inspection of the breasts and normal palpation of the breasts Breast/axilla inspection: Yes normal inspection of the breasts BREAST/AXILLA PALPATION: Yes normal palpation of the breasts Resp: COMMON NORMALS: normal respiratory effort, No retractions, No use of accessory muscles, clear to auscultation bilaterally and percussion normal AUSCULTATION: clear to auscultation bilaterally PERCUSSION: percussion normal Cardio: COMMON NORMALS: no JVD, regular rate, regular rhythm, S1 normal heart sound present, S2 normal heart sound present, No gallops present (Cardio), No clicks present (Cardio), No murmurs present (Cardio), No rub (Cardio) and Peripheral pulses 2+ throughout RATE: regular rate RHYTHM: regular rhythm HEART SOUNDS: S1 normal heart sound present and S2 normal heart sound present PERIPHERAL PULSES: Peripheral pulses 2+ throughout GI: COMMON NORMALS: Normal to inspection, nondistended, normoactive bowel sounds present, Soft to palpation, non-tender, No hepatosplenomegaly present, no masses and no bruits PALPATION: Yes Soft to palpation and Yes No hepatosplenomegaly present : COMMON NORMALS: Yes no CVA tenderness, Yes normal external appearance, Yes normal appearance of the vagina, Yes normal appearance of the cervix, Yes normal bimanual exam, Yes No adnexal tenderness and Yes no masses BLADDER/KIDNEY EXAM: Yes no CVA tenderness BIMANUAL EXAM - VAGINA & UTERUS: Yes normal bimanual exam Back/Pelvis: COMMON NORMALS: no CVA tenderness, thoracic and lumbar spine normal to inspection, no thoracic nor lumbar tenderness, thoraco-lumbar ROM normal and straight leg raise negative bilaterally Extremity: COMMON NORMALS: normal to inspection, full ROM, capillary refill normal, no joint enlargement, no clubbing, cyanosis or edema, no calf tenderness and no pedal edema Neuro: COMMON NORMALS: patient oriented x3 SENSORIUM/ORIENTATION: Yes alert MENINGEAL SIGNS: Yes no meningeal signs Course Reevaluation(s): Reevaluation #1: Negative for acute findings. Patient has had no vomiting in the emergency department. Patient is requesting discharge. Urinalysis has not returned. Patient states she is currently taking Bactrim and. Patient wishes to have a prescription medication to help with the cramping in her abdomen. Request discharge and has called her ride. Patient is instructed to continue with all home medications and follow-up with her primary care physician. Time: 11:25 Vital Signs: Vital signs: Vital Signs Temperature 98.1 F 01/07/21 09:47 Pulse Rate 78 01/07/21 11:13 Respiratory Rate 18 01/07/21 09:47 Blood Pressure 146/110 01/07/21 10:55 Pulse Oximetry 98 01/07/21 10:55 MDM - Abdominal Pain MDM Narrative: Medical decision making narrative: This patient presents to the emergency department with complaint of right lower right-sided abdominal pain. Patient states that she has a history of gastroparesis. Patient is a poor history of severe diabetes and subsequently has had a below-knee amputation on the left and is lost several of her toes on the right. Patient's had multiple surgeries and even had a feeding tube in the past. Patient has a long history of multiple visits to the emergency department. Patient states this has been going on for the past 2 to 3 days.Negative for acute findings. Patient has had no vomiting in the emergency department. Patient is requesting discharge. Urinalysis has not returned. Patient states she is currently taking Bactrim and. Patient wishes to have a prescription medication to help with the cramping in her abdomen. Request discharge and has called her ride. Patient is instructed to continue with all home medications and follow-up with her primary care physician. Differential Diagnosis: Differential diagnosis abdominal pain: Likely abdominal pain, constipation, gastroenteritis, pancreatitis and small bowel obstruction Medical Records: Attestation: I reviewed the patient's medical records. Lab Data: Attestation: I reviewed the patient's lab results. Labs: Lab Results 01/07/21 01/07/21 01/07/21 Range/Units 10:15 10:15 10:50 WBC 7.3 (4.0-10.0) 10^3/ uL RBC 3.62 L (4.1-5.3) 10^6/u L Hgb 10.1 L (11.5-15.3) g/dL Hct 30.7 L (37.0-47.0) % MCV 84.8 (81-99) fL MCH 27.9 L (28.0-34.0) pg MCHC 32.9 (30.0-36.0) g/dL RDW 13.3 (12.1-15.1) % Plt Count 628 H (130-400) 10^3/c mm MPV 8.6 (7.4-10.4) fL Neut % (Auto) 70.5 % Lymph % (Auto) 21.1 % [place] % (Auto) 7.0 % Eos % (Auto) 0.5 % Baso % (Auto) 0.5 % Neut # (Auto) 5.13 (1.8-7.7) 10^3/u L Lymph # (Auto) 1.5 (0.8-4.8) 10^3/u L [place] # (Auto) 0.5 (0.2-0.9) 10^3/u L Eos # (Auto) 0.0 (0.0-0.8) 10^3/u L Baso # (Auto) 0.0 (0.0-0.1) 10^3/u L Nucleated RBC % (a uto) 0 % Nucleated RBCs # 0.0 /100WBC Sodium 138 (136-145) mmol/L Potassium 3.8 (3.5-5.1) mmol/L Chloride 100 (98-107) mmol/L Carbon Dioxide 22 (22-29) mmol/L Anion Gap 19.8 H (5-19) BUN 10 (6-20) mg/dL Creatinine 1.1 H (0.5-0.9) mg/dL GFR Calculation 54.5 L (90-130) mL/min Glucose 120 H (65-115) mg/dL Calculated Osmolal ity 286 (285-295) mOsm/k g Calcium 9.0 (8.5-10.5) mg/dL Total Bilirubin 0.3 (0.15-1.2) mg/dL AST 18 (0-32) U/L ALT 17 (0-33) U/L Alkaline Phosphata se 119 H (35-105) IU/L Total Protein 7.2 (6.6-8.7) g/dL Albumin 3.7 (3.5-5.2) g/dL Globulin 3.5 (1.3-4.6) g/dL Urine Color Yellow (Yellow) Urine Appearance Hazy A (CLEAR) Urine pH 6 (5-7) Ur Specific Gravit y 1.020 (1.005-1.030) Urine Protein 3+ H (Negative) Urine Glucose (UA) Norm (Normal) Urine Ketones 1+ H (Negative) Urine Blood Neg (Negative) Urine Nitrate Negative (Negative) Urine Bilirubin 1+ H (Negative) Urine Urobilinogen 4 H (Negative) mg/dL Ur Leukocyte Estephania ase Negative (Negative) Amorphous Sediment Not Reportable Ethyl Alcohol < 10 (0-10) mg/dL Imaging Data ^: Other Xray: Attestation: I personally reviewed and interpreted this imaging study as follows: My impression: Negative for acute findings. Other Data: Attestation for Other Data: I personally reviewed and interpreted the following: Discharge Plan Discharge Patient Disposition: Home Clinical Impression: Nausea & vomiting, Diabetes mellitus type 1 Condition: Stable Prescriptions: New dicyclomine 20 mg tablet 20 mg PO TID Qty: 20 RF: 0 No Action metronidazole [Flagyl] 500 mg tablet 500 mg PO TID 14 Days Qty: 42 RF: 0 clarithromycin 500 mg tablet 500 mg PO BID 14 Days Qty: 28 RF: 0 Lantus Solostar U-100 Insulin 100 unit/mL (3 mL) insulin pen 5 unit SUBCUT BEDTIME RF: 0 insulin lispro 100 unit/mL Insulin Pen See Rx Instructions .ROUTE .COMPLEX RF: 0 cholestyramine (with sugar) 4 gram Powder In Packet 4 g PO BID Qty: 60 RF: 0 cyclobenzaprine 10 mg Tablet 10 mg PO TID PRN (Reason: Muscle Spasms) Qty: 30 RF: 0 erythromycin ethylsuccinate 200 mg/5 mL Suspension For Reconstitution 200 mg PO TIDWM Qty: 200 RF: 0 pantoprazole 40 mg Tablet,Delayed Release (Dr/Ec) 40 mg PO BID Qty: 60 RF: 0 Stool Softener-Laxative 8.6-50 mg Tablet 1 tab PO BID Qty: 60 RF: 0 promethazine 25 mg Tablet 25 mg PO Q6H PRN (Reason: Nausea) Qty: 30 RF: 0 Discharge Orders: Discharge ED (Routine); Ordered 01/07/21 Ordered By: Wong Jade Discharge Diet: Diabetic Discharge Activity: Resume usual activity Patient Instructions: Opioid Safety Activity Restrictions/Additional Instructions: Encourage p.o. fluids. Take medications as prescribed. Continue all home medications. Follow-up with PCP in 2 to 3 days. 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
[2021-01-07] MEDS: metoclopramide 5 mg/mL SDV 2 mL 10 MG IVP (10:23)
[2021-01-07] MEDS: sodium chloride 0.9% 1,000 ML 999 ML IV (10:24)
[2021-01-07 10:39] LABS: Basophils % 0.5 %; Eosinophils % 0.5 %; Hematocrit 30.7 % (37.0-47.0); Hemoglobin 10.1 g/dL (11.5-15.3); Lymphocytes # 1.5 10^3/uL (0.8-4.8); Lymphocytes % 21.1 %; Mean Corpuscular HGB Conc 32.9 g/dL (30.0-36.0); Mean Corpuscular Hemoglobin 27.9 pg (28.0-34.0); Mean Corpuscular Volume 84.8 fL (81-99); Mean Platelet Volume 8.6 fL (7.4-10.4); Monocytes # 0.5 10^3/uL (0.2-0.9); Neutrophils # 5.13 10^3/uL (1.8-7.7); Neutrophils % 70.5 %; Nucleated Red Blood Cells % 0 %; Platelet Count 628 10^3/cmm (130-400); Red Blood Count 3.62 10^6/uL (4.1-5.3); Red Cell Distribution Width 13.3 % (12.1-15.1); White Blood Count 7.3 10^3/uL (4.0-10.0)
[2021-01-07 10:50] LABS: Alanine Aminotransferase 17 U/L (0-33); Albumin Level 3.7 g/dL (3.5-5.2); Alkaline Phosphatase 119 IU/L (35-105); Anion Gap 19.8 (5-19); Aspartate Amino Transferase 18 U/L (0-32); Blood Urea Nitrogen 10 mg/dL (6-20); Carbon Dioxide 22 mmol/L (22-29); Chloride 100 mmol/L (98-107); Globulin 3.5 g/dL (1.3-4.6); Glomerular Filtration Rate 54.5 mL/min (90-130); Glucose 120 mg/dL (65-115); Osmolality Calculated 286 mOsm/kg (285-295); Potassium 3.8 mmol/L (3.5-5.1); Sodium 138 mmol/L (136-145); Total Bilirubin 0.3 mg/dL (0.15-1.2); Total Protein 7.2 g/dL (6.6-8.7)
[2021-01-07 10:55] VITALS: BP 146/110; O2SAT 98
[2021-01-07] MEDS: dicyclomine 20 mg Tablet PO (11:06)
[2021-01-07 11:11] LABS: Alcohol Level < 10 mg/dL (0-10)
[2021-01-07 11:13] VITALS: PULSE 78
[2021-01-07 11:21] LABS: Add Urine Microscopic? YES; Bilirubin Urine 1+ (Negative); Blood Urine Neg (Negative); Glucose Urine UA Norm (Normal); Ketones Urine 1+ (Negative); Leukocyte Esterase Urine Negative (Negative); Nitrate Urine Negative (Negative); Protein Urine 3+ (Negative); Urine Appearance Hazy (CLEAR); Urine Color Yellow (Yellow); Urobilinogen Urine 4 mg/dL (Negative); pH Urine 6 (5-7)
[2021-01-07 11:26] LABS: Amphetamines Screen Urine Negative (Negative); Barbiturates Screen Urine Negative (Negative); Benzodiazepines Screen Urine Negative (Negative); Cocaine Screen Urine Negative (Negative); Opiate Screen Urine Negative (Negative); PCP Screen Urine Negative (Negative); THC Screen Urine Negative (Negative)
[2021-01-07 11:36] LABS: Amorphous Sediment Urine TRACE /hpf; Bacteria Urine 1+ /hpf; Fine Granular Casts Urine 25-40 /lpf; Hyaline Casts Urine 80-100 /lpf; Mucus Urine 3+ /hpf; RBC Urine 0-4 /hpf (0-2); Transitional Epi Cells Urine 0-4 /hpf
[2021-01-07 11:37] LABS: Add Urine Culture? No; Other Casts Urine WAXY /lpf
[2021-01-07 11:38] VITALS: PULSE 78
== END 2021-01-07 11:38 | disposition home or self-care (01) ==
PROVIDERS: Emergency Provider Emergency Medicine
DX: R11.2 Nausea with vomiting, unspecified (principal); Z79.4 Long term (current) use of insulin; E10.22 Type 1 diabetes mellitus with diabetic chronic kidney disease; I12.9 Hypertensive chronic kidney disease with stage 1 through stage 4 chronic kidney disease, or unspecified chronic kidney disease; N18.2 Chronic kidney disease, stage 2 (mild); I25.10 Atherosclerotic heart disease of native coronary artery without angina pectoris; E78.5 Hyperlipidemia, unspecified; Z89.512 Acquired absence of left leg below knee; Z87.891 Personal history of nicotine dependence
CPT/HCPCS: 74022; 80053; 80306; 80307; 81001; 85025; 96361; 96374; 99283; J2765; J7030

== ENCOUNTER 2021-01-08 13:57 | Emergency (ER) | payer MEDICAID, SELFPAY ==
[2021-01-08 14:08] VITALS: BP 174/94; PULSE 112; RESP 18; TEMP 37.1; O2SAT 98; BMI 28.0
--- NOTE | 2021-01-08 14:33 | XRR_ITS ---
PROCEDURE INFORMATION: Exam: XR Left Knee Exam date and time: 01/08/2021 2:38 PM Age: 40 years old Clinical indication: Injury or trauma; Fall; Blunt trauma; Knee; Left; Prior surgery TECHNIQUE: Imaging protocol: XR Left knee. Views: 3 views. COMPARISON: CR (LOW EXM, ) 12/31/2020 12:11 PM FINDINGS: Bones/joints: [id number] amputation. No acute fracture, no definite lytic destruction.. Soft tissues: Soft tissue swelling. Vascular calcifications. XR/XR knee LT 3V* [id number] IMPRESSION: No acute fracture.
--- NOTE | 2021-01-08 14:34 | ED_ITS ---
HPI - Fall General: Chief Complaint: Fall Stated Complaint: FELL ON AMPUTATION Time Seen by Provider: 01/08/21 14:27 History of Present Illness: HPI Narrative: This patient presents to the emergency department after complaints of a fall on her left leg. Patient has a below the knee amputation due to poorly controlled diabetes. Patient states she is having pain. Patient was in the emergency department yesterday for nausea vomiting. But had no nausea vomiting in the emergency department. Will do medical evaluation treat as needed. Pat medical records show the patient has had a history of a fall with stump pain in the past. complaint: fall Onset (ago): hour(s) Place fall occurred: other Loss of consciousness: None Associated symptoms-after fall: Denies abdominal pain, chest pain, headache(s), lightheadedness or neck pain Review of Systems General: Reports: 10 or more systems reviewed and unremarkable except in HPI and below Const: Denies: fever(s), chills, body aches or fatigue Eyes: Denies: change in vision or blurry vision ENMT: Denies: throat pain, hoarseness or mouth pain Card: Denies: chest pain, palpitations, irregular heart rhythm, edema, swell ing of feet/ankles or lightheadedness Resp: Denies: dyspnea, productive cough, non-productive cough, wheezing or pain on inspiration GI: Denies: abdominal pain, nausea or vomiting : Denies: flank pain, difficulty voiding, dysuria, urinary frequency, urinary urgency or urinary hesitancy Musc: Reports: back pain, extremity pain and joint pain; Denies: neck pain, extremity swelling, joint swelling, joint redness, joint warmth or limited range of motion Skin/Breast: Denies: rash, pruritus, erythema or skin tenderness Neuro: Denies: headache(s), numbness in extremities or weakness in extremities Psych: Denies: anxiety or depression PFSH ED PFSH: Medical History Back pain CKD (chronic kidney disease) stage 2, GFR 60-89 ml/min baseline Cr is around 1.0 Coronary artery disease hx of stenting Diabetes mellitus type 1 diagnosed age 15, history of peripheral neuropathy, gastroparesis and nephropathy Diabetic foot ulcer s/p surgical intervention and eventual amputation Diabetic gastroparesis Diabetic ophthalmopathy DKA (diabetic ketoacidoses) Foot osteomyelitis, right Hyperlipidemia Hypertension Non-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 Surgical History Below-knee amputation of left lower extremity H/O esophagogastroduodenoscopy (12/31/20) Bile reflux gastritis, grade B esophagitis H/O exploratory laparotomy x 3 History of amputation of right forefoot Hx of cholecystectomy Previous section x 3 S/P coronary artery stent placement x 1 S/P percutaneous endoscopic gastrostomy (PEG) tube placement Family History Unknown Diabetes extensive, type II Other CHF (congestive heart failure) Social History Smoking and tobacco status: former smoker Quit status (tobacco): has quit using tobacco Former quit date comment: 15 yrs ago Alcohol intake: former Former alcohol use details: 15 yrs ago Household members: spouse Marital status: Sexually active: Yes (1, ) Female Reproductive History: Date of last menstrual period: 12/17/20 Physical Exam Const: COMMON NORMALS: no acute distress, average body habitus, patient oriented x3, no limitations, healthy appearing, alert and well nourished HENMT: COMMON NORMALS: normocephalic, atraumatic, hearing grossly normal bilaterally, external ears normal, EAC's normal, TM's normal bilaterally, Normal external nose present, Normal nasal mucous membranes and turbinates present, moist oral mucous membranes, oropharynx normal, dentition normal and gingiva normal HEAD & SCALP: normocephalic and atraumatic NOSE: Normal external nose present and Normal nasal mucous membranes and turbinates present EXTERNAL EAR: Yes external ears normal EXTERNAL AUDITORY CANAL: EAC's normal TYMPANIC MEMBRANE: TM's normal bilaterally Neck/C-Spine: COMMON NORMALS: full ROM, no lymphadenopathy, supple, no meningeal signs, no JVD, Thyroid normal and No carotid bruits THYROID: Thyroid normal Chest: COMMONS NORMALS: normal inspection of the chest, normal palpation of entire chest wall, normal inspection of the breasts and normal palpation of the breasts Breast/axilla inspection: Yes normal inspection of the breasts BREAST/AXILLA PALPATION: Yes normal palpation of the breasts Resp: COMMON NORMALS: normal respiratory effort, No retractions, No use of accessory muscles, clear to auscultation bilaterally and percussion normal AUSCULTATION: clear to auscultation bilaterally PERCUSSION: percussion normal Cardio: COMMON NORMALS: no JVD, regular rate, regular rhythm, S1 normal heart sound present, S2 normal heart sound present, No gallops present (Cardio), No clicks present (Cardio), No murmurs present (Cardio), No rub (Cardio) and Peripheral pulses 2+ throughout RATE: regular rate RHYTHM: regular rhythm HEART SOUNDS: S1 normal heart sound present and S2 normal heart sound present PERIPHERAL PULSES: Peripheral pulses 2+ throughout GI: COMMON NORMALS: Normal to inspection, nondistended, normoactive bowel sounds present, Soft to palpation, non-tender, No hepatosplenomegaly present, no masses and no bruits PALPATION: Yes Soft to palpation and Yes No hepatosplenomegaly present : COMMON NORMALS: Yes no CVA tenderness, Yes normal external appearance, Yes normal appearance of the vagina, Yes normal appearance of the cervix, Yes normal bimanual exam, Yes No adnexal tenderness and Yes no masses BLADDER/KIDNEY EXAM: Yes no CVA tenderness BIMANUAL EXAM - VAGINA & UTERUS: Yes normal bimanual exam Back/Pelvis: COMMON NORMALS: no CVA tenderness, thoracic and lumbar spine normal to inspection, no thoracic nor lumbar tenderness, thoraco-lumbar ROM normal and straight leg raise negative bilaterally Extremity: COMMON NORMALS: normal to inspection, full ROM, capillary refill normal, no joint enlargement, no clubbing, cyanosis or edema, no calf tenderness and no pedal edema NARRATIVE EXTREMITY EXAM: Below the knee amputation on the left. No obvious signs of injury. Other than a small area of redness/lesion appears to be chronic. Neuro: COMMON NORMALS: patient oriented x3 SENSORIUM/ORIENTATION: Yes alert MENINGEAL SIGNS: Yes no meningeal signs Course Reevaluation(s): Reevaluation #1: Negative evaluation in the emergency department negative for any acute fractures. No obvious signs of injury. Patient be discharged home with follow instruction Rest ice elevation as needed May take [id number] Tylenol Motrin as needed for pain. Time: 15:01 Vital Signs: Vital signs: Vital Signs Temperature 98.7 F 01/08/21 14:08 Pulse Rate 112 H 01/08/21 14:08 Respiratory Rate 18 01/08/21 14:08 Blood Pressure 174/94 01/08/21 14:08 Pulse Oximetry 98 01/08/21 14:08 MDM - Fall MDM Narrative: Medical decision making narrative: Patient presented to the emergency department stating that she fell early this morning landing on her stump while at [employer]. Patient was complaining of pain. Negative evaluation in the emergency department by x-ray. Patient be discharged home rest ice elevation Tylenol Motrin as needed as needed for pain patient is to follow-up with your PCP in 2 to 3 days. Medical Records: Attestation: I reviewed the patient's medical records. Imaging Data^: Xray Ortho: Attestation: I personally reviewed and interpreted this imaging study as follows: My impression: Negative for any acute findings Discharge Plan Discharge Patient Disposition: Home Clinical Impression: Amputation stump pain Condition: Stable Prescriptions: No Action metronidazole [Flagyl] 500 mg tablet 500 mg PO TID 14 Days Qty: 42 RF: 0 clarithromycin 500 mg tablet 500 mg PO BID 14 Days Qty: 28 RF: 0 Lantus Solostar U-100 Insulin 100 unit/mL (3 mL) insulin pen 5 unit SUBCUT BEDTIME RF: 0 dicyclomine 20 mg tablet 20 mg PO TID Qty: 20 RF: 0 insulin lispro 100 unit/mL Insulin Pen See Rx Instructions .ROUTE .COMPLEX RF: 0 cholestyramine (with sugar) 4 gram Powder In Packet 4 g PO BID Qty: 60 RF: 0 cyclobenzaprine 10 mg Tablet 10 mg PO TID PRN (Reason: Muscle Spasms) Qty: 30 RF: 0 erythromycin ethylsuccinate 200 mg/5 mL Suspension For Reconstitution 200 mg PO TIDWM Qty: 200 RF: 0 pantoprazole 40 mg Tablet,Delayed Release (Dr/Ec) 40 mg PO BID Qty: 60 RF: 0 Stool Softener-Laxative 8.6-50 mg Tablet 1 tab PO BID Qty: 60 RF: 0 promethazine 25 mg Tablet 25 mg PO Q6H PRN (Reason: Nausea) Qty: 30 RF: 0 Discharge Orders: Discharge ED (Routine); Ordered 01/08/21 Ordered By: Wong Jade Discharge Diet: Usual diet Discharge Activity: Resume usual activity Patient Instructions: Opioid Safety Activity Restrictions/Additional Instructions: rest ice elevation Tylenol Motrin as needed as needed for pain patient is to follow-up with your PCP in 2 to 3 days. 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
[2021-01-08] MEDS: ibuprofen 600 mg Tablet PO (15:05)
[2021-01-08 15:16] VITALS: BP 168/72; PULSE 108; RESP 18; O2SAT 95
[2021-01-08 15:49] LABS: Amphetamines Screen Urine Negative (Negative); Barbiturates Screen Urine Negative (Negative); Benzodiazepines Screen Urine Negative (Negative); Cocaine Screen Urine Negative (Negative); Opiate Screen Urine Negative (Negative); PCP Screen Urine Negative (Negative); THC Screen Urine Negative (Negative)
[2021-01-08 15:50] LABS: Glucose Urine UA Norm (Normal); Protein Urine 3+ (Negative); Specific Gravity, Urine 1.015 (1.005-1.030); Urine Appearance Hazy (CLEAR); Urine Color Yellow (Yellow); pH Urine 7 (5-7)
[2021-01-08 15:51] LABS: Add Urine Microscopic? YES; Bilirubin Urine Neg (Negative); Blood Urine 3+ (Negative); Ketones Urine Negative (Negative); Leukocyte Esterase Urine 1+ (Negative); Nitrate Urine Negative (Negative); Urobilinogen Urine 8 mg/dL (Negative)
[2021-01-08 16:03] LABS: RBC Urine 0-4 /hpf (0-2); WBC Urine 15-25 /hpf (0-5)
[2021-01-08 16:04] LABS: Add Urine Culture? No; Bacteria Urine 2+ /hpf; Squamous Epithelial Cell Urine 15-25 /hpf (0-5)
== END 2021-01-08 15:19 | disposition home or self-care (01) ==
PROVIDERS: Emergency Provider Emergency Medicine
DX: M79.605 Pain in left leg (principal); Z89.512 Acquired absence of left leg below knee; Z79.4 Long term (current) use of insulin; I12.9 Hypertensive chronic kidney disease with stage 1 through stage 4 chronic kidney disease, or unspecified chronic kidney disease; E10.22 Type 1 diabetes mellitus with diabetic chronic kidney disease; N18.2 Chronic kidney disease, stage 2 (mild); I25.10 Atherosclerotic heart disease of native coronary artery without angina pectoris; E78.5 Hyperlipidemia, unspecified; Z87.891 Personal history of nicotine dependence
CPT/HCPCS: 73562; 80306; 81001; 99283

== ENCOUNTER 2021-01-08 21:21 | Observation (INO) | payer MEDICAID, SELFPAY ==
[2021-01-08 21:26] VITALS: BP 130/67; PULSE 128; RESP 22; TEMP 37.1; O2SAT 94
--- NOTE | 2021-01-08 21:33 | XRR_ITS ---
PROCEDURE INFORMATION: Exam: XR Chest Exam date and time: 01/08/2021 9:41 PM Age: 40 years old Clinical indication: Dyspnea; Additional info: Reduced breath sounds TECHNIQUE: Imaging protocol: XR of the chest. Views: 1 view. COMPARISON: CR XR chest 1V portable [id number] 12/27/2020 12:06 PM FINDINGS: Lungs: No consolidation. Pleural spaces: Unremarkable. No pleural effusion. No pneumothorax. Heart/Mediastinum: No cardiomegaly. Bones/joints: Unremarkable. XR/XR chest 1V portable [id number] IMPRESSION: 1. No acute cardiopulmonary disease demonstrated. 2. There is no interval change from the prior examination.
[2021-01-08 21:59] LABS: Basophils # 0.1 10^3/uL (0.0-0.1); Basophils % 0.8 %; Eosinophils % 0.2 %; Hematocrit 36.5 % (37.0-47.0); Hemoglobin 11.3 g/dL (11.5-15.3); Lymphocytes # 2.1 10^3/uL (0.8-4.8); Lymphocytes % 24.1 %; Mean Corpuscular Volume 90.3 fL (81-99); Monocytes # 0.6 10^3/uL (0.2-0.9); Monocytes % 6.9 %; Neutrophils % 67.5 %; Nucleated Red Blood Cells % 0 %; Platelet Count 642 10^3/cmm (130-400); Red Blood Count 4.04 10^6/uL (4.1-5.3); Red Cell Distribution Width 13.4 % (12.1-15.1); White Blood Count 8.9 10^3/uL (4.0-10.0)
[2021-01-08 22:19] LABS: Charge for UA Resulting for Rev
--- NOTE | 2021-01-08 22:23 | CTR_ITS ---
PROCEDURE INFORMATION: Exam: CT Abdomen And Pelvis With Contrast Exam date and time: 01/08/2021 11:09 PM Age: 40 years old Clinical indication: Abdominal pain; Localized; Prior surgery; Surgery date: 6+ months; Surgery type: Gb, c-sect; Patient HX: Low back and lower abd/pelvic pain; Additional info: Low back pain, low belly pain TECHNIQUE: Imaging protocol: Computed tomography of the abdomen and pelvis with contrast. Radiation optimization: All CT scans at this facility use at least one of these dose optimization techniques: automated exposure control; mA and/or kV adjustment per patient size (includes targeted exams where dose is matched to clinical indication); or iterative reconstruction. Contrast material: VISI 320; Contrast volume: 95 ml; Contrast route: INTRAVENOUS (IV); COMPARISON: CT abdomen pelvis w con* [id number] 12/27/2020 3:31 PM RADIATION DOSE METRICS: Total DLP (mGy-cm): 1805.87 FINDINGS: Lungs: The lung bases appear unremarkable. Liver: The liver is unremarkable in appearance. Gallbladder and bile ducts: The gallbladder is surgically absent. Pancreas: The pancreas is normal in appearance. No pancreatic duct dilatation. Spleen: The spleen is normal in size and appearance. Adrenal glands: The adrenal glands appear within normal limits. Kidneys and ureters: The kidneys are normal in morphology. No hydronephrosis. No solid mass. Stomach and bowel: No acute gastric abnormality demonstrated. The small bowel is unremarkable as demonstrated. No acute abnormality/inflammatory change of the colon. Appendix: The appendix is normal in appearance. No evidence of appendicitis. Intraperitoneal space: No free air. No significant fluid collection. Vasculature: The aorta is atherosclerotic. No aortic aneurysm. Lymph nodes: No pathologically enlarged lymph nodes are demonstrated. Urinary bladder: The urinary bladder is unremarkable in appearance. Reproductive: Unremarkable as visualized. Bones/joints: No acute osseous abnormality. Soft tissues: 1.5 cm subcutaneous cyst in the anterior abdominal wall. The abdominal wall demonstrates a small umbilical hernia, containing only fat. CT/CT abdomen pelvis w con* [id number] IMPRESSION: 1. No acute abnormality demonstrated in the abdomen and pelvis. 2. There is no interval change from the prior examination. Radiation Dose CTDIVOL = (mGy): DLP = 1805.87 (mGy-cm)
[2021-01-08 22:25] LABS: Alanine Aminotransferase 16 U/L (0-33); Albumin Level 3.6 g/dL (3.5-5.2); Alkaline Phosphatase 116 IU/L (35-105); Aspartate Amino Transferase 21 U/L (0-32); Blood Urea Nitrogen 9 mg/dL (6-20); Calcium 8.9 mg/dL (8.5-10.5); Carbon Dioxide 18 mmol/L (22-29); Chloride 105 mmol/L (98-107); Globulin 4.4 g/dL (1.3-4.6); Glomerular Filtration Rate 38.1 mL/min (90-130); Glucose 120 mg/dL (65-115); Osmolality Calculated 292 mOsm/kg (285-295); Sodium 141 mmol/L (136-145); Thyroid Stimulating Hormone 0.18 uIU/mL (0.27-4.20); Total Bilirubin 0.4 mg/dL (0.15-1.2)
[2021-01-08 22:27] LABS: Urine Color Yellow (Yellow)
[2021-01-08 22:28] LABS: Add Urine Microscopic? YES; Bilirubin Urine Neg (Negative); Blood Urine 2+ (Negative); Glucose Urine UA Norm (Normal); Ketones Urine 1+ (Negative); Leukocyte Esterase Urine Trace (Negative); Nitrate Urine Negative (Negative); Protein Urine 3+ (Negative); Specific Gravity, Urine 1.015 (1.005-1.030); Urobilinogen Urine 8 mg/dL (Negative); pH Urine 6 (5-7)
[2021-01-08 22:30] LABS: Amphetamines Screen Urine Negative (Negative); Barbiturates Screen Urine Negative (Negative); Benzodiazepines Screen Urine Negative (Negative); Cocaine Screen Urine Negative (Negative); Opiate Screen Urine Negative (Negative); PCP Screen Urine Negative (Negative); THC Screen Urine Negative (Negative)
[2021-01-08 22:37] LABS: Acetaminophen < 5.0 ug/mL (10-30); Alcohol Level < 10 mg/dL (0-10); Salicylate < 0.3 mg/dL (3-10)
[2021-01-08 22:38] LABS: Anion Gap 22.1 (5-19); Potassium 4.1 mmol/L (3.5-5.1)
[2021-01-08] MEDS: haloperidol inj 5 mg/mL INJ 1 mL 2.5 MG IM (22:58)
[2021-01-08] MEDS: LORazepam 2 mg/mL INJ 1 mL 1 MG IM (22:58)
[2021-01-08] MEDS: acetaminophen 325 mg Tablet 650 MG PO (23:01)
[2021-01-08 23:04] LABS: Lipase 21 U/L (13-60)
--- NOTE | 2021-01-08 23:46 | PM.HP ---
Providers/Chief Complaint Chief Complaint: si History of Present Illness Cherrie Solomon is a 40 year old female with past medical history of diabetes, diabetic gastroparesis, right BKA with associated diabetic foot ulcer infection positive for MRSA currently on Bactrim, chronic pain syndrome who presents to emergency room with complaints of pain in the abdomen, nausea and vomiting. When asked when her symptoms started she says that it is constant. Earlier she expressed suicidal intentions due to ongoing unresolving chronic pain. Currently on 96-hour hold. Denies associated diarrhea or fever. No chest pain, shortness of breath, cough, palpitations. Denies dysuria. Reports prior suicidal attempts. No hematemesis. Review of Systems General: Reports: 10 or more systems reviewed and unremarkable except in HPI and below Medications/Allergies Home Medications Medication Instructions Recorded Confirmed Last Taken Type insulin lispro See Rx Instructions .ROUTE .COMPLEX 12/13/20 12/27/20 12/21/20 History Lantus Solostar U-100 Insulin 5 unit SUBCUT BEDTIME 12/24/20 12/27/20 12/23/20 History cholestyramine (with sugar) 4 g PO BID #60 ea 12/31/20 Unknown Rx cyclobenzaprine 10 mg PO TID PRN #30 tab 12/31/20 Unknown Rx erythromycin ethylsuccinate 200 mg PO TIDWM #200 ml 12/31/20 Unknown Rx pantoprazole 40 mg PO BID #60 tab 12/31/20 Unknown Rx promethazine 25 mg PO Q6H PRN #30 tab 12/31/20 Unknown Rx sennosides-docusate sodium [Stool 1 tab PO BID #60 tab 12/31/20 Unknown Rx Softener-Laxative] clarithromycin 500 mg tablet 500 mg PO BID 14 Days #28 tab 01/06/21 Unknown Rx metronidazole 500 mg tablet 500 mg PO TID 14 Days #42 tab 01/06/21 Unknown Rx dicyclomine 20 mg PO TID #20 tab 01/07/21 Unknown Rx Allergies Allergy/AdvReac Type Severity Reaction Status Date / Time morphine Allergy ALGY-Difficulty Verified 01/08/21 21:30 Breathing PFSH Acute PFSH: Medical History Back pain CKD (chronic kidney disease) stage 2, GFR 60-89 ml/min baseline Cr is around 1.0 Coronary artery disease hx of stenting Diabetes mellitus type 1 diagnosed age 15, history of peripheral neuropathy, gastroparesis and nephropathy Diabetic foot ulcer s/p surgical intervention and eventual amputation Diabetic gastroparesis Diabetic ophthalmopathy DKA (diabetic ketoacidoses) Foot osteomyelitis, right Hyperlipidemia Hypertension Non-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 Surgical History Below-knee amputation of left lower extremity H/O esophagogastroduodenoscopy (12/31/20) Bile reflux gastritis, grade B esophagitis H/O exploratory laparotomy x 3 History of amputation of right forefoot Hx of cholecystectomy Previous section x 3 S/P coronary artery stent placement x 1 S/P percutaneous endoscopic gastrostomy (PEG) tube placement Family History Unknown Diabetes extensive, type II Other CHF (congestive heart failure) Social History Smoking and tobacco status: former smoker Quit status (tobacco): has quit using tobacco Former quit date comment: 15 yrs ago Alcohol intake: former Former alcohol use details: 15 yrs ago Household members: spouse Marital status: Sexually active: Yes (1, ) Female Reproductive History: Date of last menstrual period: 12/17/20 Vitals/I&O/Wt Last Vital Signs Temp 98.7 F 01/08/21 21:26 Pulse 128 H 01/08/21 21:26 Resp 22 H 01/08/21 21:26 BP 130/67 01/08/21 21:26 Pulse Ox 94 01/08/21 21:26 Physical Exam Narrative: EXAM NARRATIVE: The patient is currently awake alert and oriented. No acute distress. Mood and affect are appropriate. Responses are adequate. Skin is warm and dry. Dry mucous membranes. Eyes PERRL, extraocular muscles are intact No facial asymmetry. Normal speech. No focal deficits Neck supple. No JVD Lungs are clear. No respiratory distress Heart S1, S2, regular tachycardia Abdomen is soft nontender during my evaluation. No guarding or rebound. Bowel sounds are weak. Extremities. Trace edema. No calf tenderness or peripheral cyanosis. Left BKA. There is a large ulcer with purulent base where the stump is. No active discharge or bleeding. Data : 01/08/21 21:52 01/08/21 21:52 Other Labs: Laboratory Results WBC 8.9 10^3/uL (4.0-10.0) 01/08/21 21:52 RBC 4.04 10^6/uL (4.1-5.3) L 01/08/21 21:52 Hgb 11.3 g/dL (11.5-15.3) L 01/08/21 21:52 Hct 36.5 % (37.0-47.0) L 01/08/21 21:52 MCV 90.3 fL (81-99) 01/08/21 21:52 MCH 28.0 pg (28.0-34.0) 01/08/21 21:52 MCHC 31.0 g/dL (30.0-36.0) 01/08/21 21:52 RDW 13.4 % (12.1-15.1) 01/08/21 21:52 Plt Count 642 10^3/cmm (130-400) H 01/08/21 21:52 MPV 9.0 fL (7.4-10.4) 01/08/21 21:52 Neut % (Auto) 67.5 % 01/08/21 21:52 Lymph % (Auto) 24.1 % 01/08/21 21:52 [place] % (Auto) 6.9 % 01/08/21 21:52 Eos % (Auto) 0.2 % 01/08/21 21:52 Baso % (Auto) 0.8 % 01/08/21 21:52 Neut # (Auto) 6.00 10^3/uL (1.8-7.7) 01/08/21 21:52 Lymph # (Auto) 2.1 10^3/uL (0.8-4.8) 01/08/21 21:52 [place] # (Auto) 0.6 10^3/uL (0.2-0.9) 01/08/21 21:52 Eos # (Auto) 0.0 10^3/uL (0.0-0.8) 01/08/21 21:52 Baso # (Auto) 0.1 10^3/uL (0.0-0.1) 01/08/21 21:52 Nucleated RBC % (auto) 0 % 01/08/21 21:52 Nucleated RBCs # 0.0 /100WBC 01/08/21 21:52 Sodium 141 mmol/L (136-145) 01/08/21 21:52 Potassium 4.1 mmol/L (3.5-5.1) 01/08/21 21:52 Chloride 105 mmol/L (98-107) 01/08/21 21:52 Carbon Dioxide 18 mmol/L (22-29) L 01/08/21 21:52 Anion Gap 22.1 (5-19) H 01/08/21 21:52 BUN 9 mg/dL (6-20) 01/08/21 21:52 Creatinine 1.5 mg/dL (0.5-0.9) H 01/08/21 21:52 GFR Calculation 38.1 mL/min (90-130) L 01/08/21 21:52 Glucose 120 mg/dL (65-115) H 01/08/21 21:52 Calculated Osmolality 292 mOsm/kg (285-295) 01/08/21 21:52 Calcium 8.9 mg/dL (8.5-10.5) 01/08/21 21:52 Total Bilirubin 0.4 mg/dL (0.15-1.2) 01/08/21 21:52 AST 21 U/L (0-32) 01/08/21 21:52 ALT 16 U/L (0-33) 01/08/21 21:52 Alkaline Phosphatase 116 IU/L (35-105) H 01/08/21 21:52 Total Protein 8.0 g/dL (6.6-8.7) 01/08/21 21:52 Albumin 3.6 g/dL (3.5-5.2) 01/08/21 21:52 Globulin 4.4 g/dL (1.3-4.6) 01/08/21 21:52 Lipase 21 U/L (13-60) 01/08/21 21:52 TSH 0.18 uIU/mL (0.27-4.20) L 01/08/21 21:52 Urine Color Yellow (Yellow) 01/08/21 22:15 Urine Appearance Sl cloudy (CLEAR) A 01/08/21 22:15 Urine pH 6 (5-7) 01/08/21 22:15 Ur Specific [place] 1.015 (1.005-1.030) 01/08/21 22:15 Urine Protein 3+ (Negative) H 01/08/21 22:15 Urine Glucose (UA) Norm (Normal) 01/08/21 22:15 Urine Ketones 1+ (Negative) H 01/08/21 22:15 Urine Blood 2+ (Negative) H 01/08/21 22:15 Urine Nitrate Negative (Negative) 01/08/21 22:15 Urine Bilirubin Neg (Negative) 01/08/21 22:15 Urine Urobilinogen 8 mg/dL (Negative) H 01/08/21 22:15 Ur Leukocyte Esterase Trace (Negative) H 01/08/21 22:15 Salicylates < 0.3 mg/dL (3-10) L 01/08/21 21:52 Urine Opiates Screen Negative ng/mL (Negative) 01/08/21 22:15 Acetaminophen < 5.0 ug/mL (10-30) L 01/08/21 21:52 Ur Barbiturates Screen Negative ng/mL (Negative) 01/08/21 22:15 Ur Phencyclidine Scrn Negative ng/mL (Negative) 01/08/21 22:15 Ur Amphetamines Screen Negative ng/mL (Negative) 01/08/21 22:15 U Benzodiazepines Scrn Negative ng/mL (Negative) 01/08/21 22:15 Urine Cocaine Screen Negative ng/mL (Negative) 01/08/21 22:15 U Marijuana (THC) Screen Negative ng/mL (Negative) 01/08/21 22:15 Ethyl Alcohol < 10 mg/dL (0-10) 01/08/21 21:52 Impressions Chest X-Ray 01/08/21 21:33 IMPRESSION: 1. No acute cardiopulmonary disease demonstrated. 2. There is no interval change from the prior examination. A&P Additional A&P Information Abdominal pain, nausea and vomiting. I suspect this is secondary to diabetic gastroparesis. During her last hospitalization she had a EGD done which showed esophagitis and bilious reflux into the stomach. The most recent CT of the abdomen which was done yesterday when she presented with the same complaints was unremarkable. Abdominal pain, nausea and vomiting. Probably due to gastroparesis and possible esophagitis/gastritis. We will review her home medications and try to do some adjustments. We will continue PPI and nausea medications. Will order Reglan as needed. Left lower extremity infected stump ulcer. We will continue Bactrim. The most recent sensitivities revealed MRSA sensitive to sulfa. Dehydration secondary to #1. Will hydrate and monitor. Metabolic acidosis secondary to dehydration. Management with IV fluids. Anemia. Monitor. Diabetes. We will review her home medications and make decision on the dose of maintenance insulin and insulin sliding scale. DVT prophylaxis. Heparin. Suicidal intentions. Will request psychiatric evaluation. One-on-one for now. The plan of care was discussed with the patient. She verbalized understanding and agreement. Attestations Medical Necessity Statement*: Based on my assessment of patient's current condition I think she only requires 1 midnight for stabilization and reevaluation. If accepted we can discharge her to psych unit tomorrow. 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 Code Acute Import Customs Clearing Agent for Kim Mitchell
--- NOTE | 2021-01-08 23:53 | W.ED.PSYCH ---
HPI - Psych General: Chief Complaint: Psychiatric Symptoms Stated Complaint: si Time Seen by Provider: 01/08/21 21:32 History of Present Illness: HPI Narrative: The patient is a 40-year-old female with past medical history diabetes with significant complications retinopathy, gastroparesis, chronic kidney disease, amputations of left lower extremity BKA. She comes in today complaining of her typical severe low back pain and lower right abdominal pain. She gets seen for this frequently and is nauseous and vomiting. Today she says she feels suicidal like she does not want to live anymore because she lives daily in severe pain. She is asking for narcotics saying she does not have a problem with pain when she is on them. She is moaning in pain and frequently prefers to be on the ground. I have told her multiple times that she cannot sit on the ground in the room. I helped her get to the bed multiple times. complaint: suicidal ideation and feels depressed Associated symptoms: Reports no associated symptoms; Deny depression Review of Systems General: Reports: 10 or more systems reviewed and unremarkable except in HPI and below Const: Denies: fatigue Eyes: Denies: change in vision, blurry vision or eye redness ENMT: Denies: throat pain, swelling of lips/tongue, ear or mastoid pain or nasal congestion Card: Denies: chest pain, palpitations, irregular heart rhythm, edema, dyspnea on exertion or orthopnea Resp: Denies: dyspnea, productive cough or non-productive cough GI: Reports: abdominal pain, nausea and vomiting; Denies: diarrhea or GI cramping : Denies: flank pain, difficulty voiding, urinary frequency or urinary urgency Musc: Reports: back pain; Denies: neck pain, extremity pain, joint pain, joint redness, limited range of motion or muscle weakness Skin/Breast: Denies: rash, pruritus, erythema, skin pain or skin tenderness Neuro: Denies: headache(s), numbness in extremities, weakness in extremities, sensory changes, difficulty walking, dizziness, confusion or Slurred speech present Psych: Denies: anxiety or depression Endo: Denies: polyuria All/Imm: Denies: urticaria, throat swelling or tongue swelling PFSH ED PFSH: Medical History Back pain CKD (chronic kidney disease) stage 2, GFR 60-89 ml/min baseline Cr is around 1.0 Coronary artery disease hx of stenting Diabetes mellitus type 1 diagnosed age 15, history of peripheral neuropathy, gastroparesis and nephropathy Diabetic foot ulcer s/p surgical intervention and eventual amputation Diabetic gastroparesis Diabetic ophthalmopathy DKA (diabetic ketoacidoses) Foot osteomyelitis, right Hyperlipidemia Hypertension Non-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 Surgical History Below-knee amputation of left lower extremity H/O esophagogastroduodenoscopy (12/31/20) Bile reflux gastritis, grade B esophagitis H/O exploratory laparotomy x 3 History of amputation of right forefoot Hx of cholecystectomy Previous section x 3 S/P coronary artery stent placement x 1 S/P percutaneous endoscopic gastrostomy (PEG) tube placement Family History Unknown Diabetes extensive, type II Other CHF (congestive heart failure) Social History Smoking and tobacco status: former smoker Quit status (tobacco): has quit using tobacco Former quit date comment: 15 yrs ago Alcohol intake: former Former alcohol use details: 15 yrs ago Household members: spouse Marital status: Sexually active: Yes (1, ) Female Reproductive History: Date of last menstrual period: 12/17/20 Physical Exam Const: COMMON NORMALS: no acute distress, average body habitus, patient oriented x3, no limitations, healthy appearing, alert and well nourished GENERAL APPEARANCE: well developed and anxious ORIENTATION/CONSCIOUSNESS: Yes awake, Yes oriented to person, Yes oriented to place and Yes oriented to time HENMT: COMMON NORMALS: normocephalic, external ears normal and Normal external nose present HEAD & SCALP: normal to inspection and normocephalic NOSE: Normal external nose present EXTERNAL EAR: Yes external ears normal MOUTH: Normal oral and palatal mucosa present THROAT: posterior oropharynx normal Eye: COMMON NORMALS: Equal, round and reactive pupils present and EOMs intact bilaterally GENERAL EYE: appearance normal, both eyes and all related structures PUPIL: Yes Equal, round and reactive pupils present Neck/C-Spine: COMMON NORMALS: full ROM, no lymphadenopathy, no meningeal signs and no JVD GENERAL: Yes normal visual inspection Lymph: LYMPHATIC: no lymphadenopathy noted Chest: COMMONS NORMALS: normal inspection of the chest and normal palpation of entire chest wall Resp: COMMON NORMALS: normal respiratory effort, No retractions, No use of accessory muscles, clear to auscultation bilaterally and percussion normal EFFORT & INSPECTION: Yes able to speak in complete sentences AUSCULTATION: clear to auscultation bilaterally PERCUSSION: percussion normal Cardio: COMMON NORMALS: no JVD, regular rate, regular rhythm, S1 normal heart sound present, S2 normal heart sound present and Peripheral pulses 2+ throughout RATE: regular rate RHYTHM: regular rhythm HEART SOUNDS: S1 normal heart sound present and S2 normal heart sound present PERIPHERAL PULSES: Peripheral pulses 2+ throughout GI: COMMON NORMALS: Normal to inspection, nondistended, normoactive bowel sounds present, Soft to palpation, non-tender and no masses INSPECTION: Yes normal to inspection PALPATION: Yes Soft to palpation OTHER: Mild tenderness to lower right abdomen. Soft. No rebound tenderness : COMMON NORMALS: Yes no CVA tenderness BLADDER/KIDNEY EXAM: Yes no CVA tenderness Back/Pelvis: COMMON NORMALS: no CVA tenderness, thoracic and lumbar spine normal to inspection, no thoracic nor lumbar tenderness and thoraco-lumbar ROM normal OTHER: Tenderness to the perimuscular spinal muscles of the lumbar spine on the right side. Possibly mild right flank pain as well. Extremity: COMMON NORMALS: normal to inspection, full ROM, capillary refill normal, no joint enlargement and no pedal edema GENERAL: Yes normal exam except as noted Neuro: COMMON NORMALS: patient oriented x3, CN's II-XII intact bilaterally, moves all extremities, no focal motor deficits, no sensory deficits noted and gait normal SENSORIUM/ORIENTATION: Yes alert, Yes oriented to person, Yes oriented to place and Yes oriented to time MENINGEAL SIGNS: Yes no meningeal signs Psych: COMMON NORMALS: mental status grossly normal, Normal thought process present, cooperative, normal affect and speech normal ATTITUDE: Yes calm SPEECH: Yes normal speech THOUGHT PROCESS: Normal thought process present Skin: COMMON NORMALS: no rashes or lesions noted GENERAL SKIN EXAM: no rashes or lesions noted Course Vital Signs: Vital signs: Vital Signs Temperature 98.2 F 01/09/21 07:39 Pulse Rate 98 01/09/21 07:39 Respiratory Rate 15 01/09/21 07:39 Blood Pressure 114/71 01/09/21 07:39 Pulse Oximetry 100 01/09/21 07:39 MDM - Psych MDM Narrative: Medical decision making narrative: The patient comes in complaining of her typical low back and right lower quadrant abdominal pain along with nausea and vomiting. She is tachycardic and dehydrated. She was a difficult IV and I placed an IV ultrasound in her left basilic vein on first attempt. Pulled 2 tubes of blood with ease and flushed multiple flushes that she could taste. She has an acute kidney injury as well. She is started on IV fluids and given Phenergan for her nausea. Because she is suicidal and having medical issues she will be admitted to the ICU with psychiatric consultation. Dr. Briggs accepts to the ICU. Dr. Martinez will consult. hazardous material technician Milo notified me he flushed it down in CT as well, injected 90cc of contrast and noted no contrast in the belly CT. She did not complain of pain. In the ed room she complains of a mild ache in her arm but nothing significant. Placed Ice, elevated, compression. Dr. Delaney to attempt IV access. Admit after. Lab Data: Labs: Lab Results 01/08/21 01/08/21 01/08/21 Range/Units 21:52 21:52 21:52 WBC 8.9 (4.0-10.0) 10^3/ uL RBC 4.04 L (4.1-5.3) 10^6/u L Hgb 11.3 L (11.5-15.3) g/dL Hct 36.5 L (37.0-47.0) % MCV 90.3 (81-99) fL MCH 28.0 (28.0-34.0) pg MCHC 31.0 (30.0-36.0) g/dL RDW 13.4 (12.1-15.1) % Plt Count 642 H (130-400) 10^3/c mm MPV 9.0 (7.4-10.4) fL Neut % (Auto) 67.5 % Lymph % (Auto) 24.1 % [place] % (Auto) 6.9 % Eos % (Auto) 0.2 % Baso % (Auto) 0.8 % Neut # (Auto) 6.00 (1.8-7.7) 10^3/u L Lymph # (Auto) 2.1 (0.8-4.8) 10^3/u L [place] # (Auto) 0.6 (0.2-0.9) 10^3/u L Eos # (Auto) 0.0 (0.0-0.8) 10^3/u L Baso # (Auto) 0.1 (0.0-0.1) 10^3/u L Nucleated RBC % (a uto) 0 % Nucleated RBCs # 0.0 /100WBC Sodium 141 (136-145) mmol/L Potassium 4.1 (3.5-5.1) mmol/L Chloride 105 (98-107) mmol/L Carbon Dioxide 18 L (22-29) mmol/L Anion Gap 22.1 H (5-19) BUN 9 (6-20) mg/dL Creatinine 1.5 H (0.5-0.9) mg/dL GFR Calculation 38.1 L (90-130) mL/min Glucose 120 H (65-115) mg/dL Calculated Osmolal ity 292 (285-295) mOsm/k g Calcium 8.9 (8.5-10.5) mg/dL Total Bilirubin 0.4 (0.15-1.2) mg/dL AST 21 (0-32) U/L ALT 16 (0-33) U/L Alkaline Phosphata se 116 H (35-105) IU/L Total Protein 8.0 (6.6-8.7) g/dL Albumin 3.6 (3.5-5.2) g/dL Globulin 4.4 (1.3-4.6) g/dL Lipase 21 (13-60) U/L TSH 0.18 L (0.27-4.20) uIU/ mL Urine Color (Yellow) Urine Appearance (CLEAR) Urine pH (5-7) Ur Specific [place] y (1.005-1.030) Urine Protein (Negative) Urine Glucose (UA) (Normal) Urine Ketones (Negative) Urine Blood (Negative) Urine Nitrate (Negative) Urine Bilirubin (Negative) Urine Urobilinogen (Negative) mg/dL Ur Leukocyte Estephania ase (Negative) Salicylates < 0.3 L (3-10) mg/dL Urine Opiates Scre en (Negative) ng/mL Acetaminophen < 5.0 L (10-30) ug/mL Ur Barbiturates Sc reen (Negative) ng/mL Ur Phencyclidine S crn (Negative) ng/mL Ur Amphetamines Sc reen (Negative) ng/mL U Benzodiazepines Scrn (Negative) ng/mL Urine Cocaine Scre en (Negative) ng/mL U Marijuana (THC) Screen (Negative) ng/mL Ethyl Alcohol < 10 (0-10) mg/dL 01/08/21 01/08/21 Range/Units 22:15 22:15 WBC (4.0-10.0) 10^3/ uL RBC (4.1-5.3) 10^6/u L Hgb (11.5-15.3) g/dL Hct (37.0-47.0) % MCV (81-99) fL MCH (28.0-34.0) pg MCHC (30.0-36.0) g/dL RDW (12.1-15.1) % Plt Count (130-400) 10^3/c mm MPV (7.4-10.4) fL Neut % (Auto) % Lymph % (Auto) % [place] % (Auto) % Eos % (Auto) % Baso % (Auto) % Neut # (Auto) (1.8-7.7) 10^3/u L Lymph # (Auto) (0.8-4.8) 10^3/u L [place] # (Auto) (0.2-0.9) 10^3/u L Eos # (Auto) (0.0-0.8) 10^3/u L Baso # (Auto) (0.0-0.1) 10^3/u L Nucleated RBC % (a uto) % Nucleated RBCs # /100WBC Sodium (136-145) mmol/L Potassium (3.5-5.1) mmol/L Chloride (98-107) mmol/L Carbon Dioxide (22-29) mmol/L Anion Gap (5-19) BUN (6-20) mg/dL Creatinine (0.5-0.9) mg/dL GFR Calculation (90-130) mL/min Glucose (65-115) mg/dL Calculated Osmolal ity (285-295) mOsm/k g Calcium (8.5-10.5) mg/dL Total Bilirubin (0.15-1.2) mg/dL AST (0-32) U/L ALT (0-33) U/L Alkaline Phosphata se (35-105) IU/L Total Protein (6.6-8.7) g/dL Albumin (3.5-5.2) g/dL Globulin (1.3-4.6) g/dL Lipase (13-60) U/L TSH (0.27-4.20) uIU/ mL Urine Color Yellow (Yellow) Urine Appearance Sl cloudy A (CLEAR) Urine pH 6 (5-7) Ur Specific [place] 1.015 (1.005-1.030) Urine Protein 3+ H (Negative) Urine Glucose (UA) Norm (Normal) Urine Ketones 1+ H (Negative) Urine Blood 2+ H (Negative) Urine Nitrate Negative (Negative) Urine Bilirubin Neg (Negative) Urine Urobilinogen 8 H (Negative) mg/dL Ur Leukocyte Estephania ase Trace H (Negative) Salicylates (3-10) mg/dL Urine Opiates Scre en Negative (Negative) ng/mL Acetaminophen (10-30) ug/mL Ur Barbiturates Sc reen Negative (Negative) ng/mL Ur Phencyclidine S crn Negative (Negative) ng/mL Ur Amphetamines Sc reen Negative (Negative) ng/mL U Benzodiazepines Scrn Negative (Negative) ng/mL Urine Cocaine Scre en Negative (Negative) ng/mL U Marijuana (THC) Screen Negative (Negative) ng/mL Ethyl Alcohol (0-10) mg/dL Discharge Plan Discharge Patient Disposition: Admitted As Inpatient Admit Provider: Filippo Bergman Clinical Impression: Nausea & vomiting, Suicidal ideation, Acute kidney injury Condition: Stable 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 Code ED Service Operator for Chg Fwd Exam Comprehensive
[2021-01-09] VITALS (10 sets, daily range): BP systolic 86–210; BP diastolic 45–108; PULSE 87–117; RESP 15–18; TEMP 36.6–37.2; O2SAT 96–100
--- NOTE | 2021-01-09 00:19 | PC.NURSE ---
20G IV to Left upper arm infiltrated. MD Gracia notified. IV removed, ice applied to extremity, extremity elevated per .
--- NOTE | 2021-01-09 00:43 | PC.NURSE ---
pt refuses to leave ice on left upper arm. pt refuses to leave left upper arm elevated. pt education provided. notified.
[2021-01-09] MEDS: pantoprazole 40 mg SDV IVP (01:33)
[2021-01-09] MEDS: lactated ringers 1,000 ML 100 ML IV (01:37)
[2021-01-09] MEDS: ondansetron 2 mg/ML SDV 2 mL 4 MG IVP ×2 (01:41→10:17)
[2021-01-09] MEDS: labetalol 5 mg/mL SDV 20mL 10 MG IVP (02:11)
[2021-01-09] MEDS: heparin 5,000 unit/mL INJ 1 mL 5000 UNIT SUBCUT ×2 (02:14→12:05)
[2021-01-09] MEDS: HYDROmorphone 1 mg/mL INJ 1 mL 0.25 MG IVP ×2 (02:43→06:25)
[2021-01-09 05:35] LABS: Basophils % 0.5 %; Eosinophils % 0.1 %; Hemoglobin 10.8 g/dL (11.5-15.3); Lymphocytes # 0.9 10^3/uL (0.8-4.8); Lymphocytes % 10.8 %; Mean Corpuscular HGB Conc 31.8 g/dL (30.0-36.0); Mean Corpuscular Hemoglobin 27.8 pg (28.0-34.0); Mean Corpuscular Volume 87.6 fL (81-99); Mean Platelet Volume 8.7 fL (7.4-10.4); Monocytes # 0.5 10^3/uL (0.2-0.9); Monocytes % 5.6 %; Neutrophils # 7.17 10^3/uL (1.8-7.7); Neutrophils % 82.4 %; Nucleated Red Blood Cells % 0 %; Platelet Count 556 10^3/cmm (130-400); Red Blood Count 3.88 10^6/uL (4.1-5.3); Red Cell Distribution Width 13.5 % (12.1-15.1); White Blood Count 8.7 10^3/uL (4.0-10.0)
[2021-01-09 05:57] LABS: Anion Gap 18.5 (5-19); Blood Urea Nitrogen 7 mg/dL (6-20); Calcium 8.5 mg/dL (8.5-10.5); Carbon Dioxide 20 mmol/L (22-29); Chloride 103 mmol/L (98-107); Glomerular Filtration Rate 49.3 mL/min (90-130); Glucose 172 mg/dL (65-115); Magnesium 1.8 mg/dL (1.7-2.3); Osmolality Calculated 288 mOsm/kg (285-295); Phosphorus 4.1 mg/dL (2.5-4.5); Potassium 3.5 mmol/L (3.5-5.1); Sodium 138 mmol/L (136-145)
[2021-01-09] MEDS: cyclobenzaprine 10 mg Tablet PO (06:25)
[2021-01-09] MEDS: hyDRALAzine 20 mg/mL INJ 1 mL 10 MG IVP (06:39)
[2021-01-09 06:43] LABS: Glucose Point of Care 179 mg/dL (70-110)
[2021-01-09] MEDS: cholestyramine powder 4 gm Pkt PO (09:10)
--- NOTE | 2021-01-09 10:26 | PC.CHAP ---
Pastoral Care Encounter/Spiritual Assessment Type of Contact [] Declined sample steamer visit [] Patient/Family/Request visit [] Outpatient visit [] Follow-up visit [] Physician referral [] Code/Alert [] Routine visit [] Staff referral [] Actively dying [] Patient sleeping [] Family support [] [] Out of room [] Palliative care [] [] Receiving care in room [] Pre-surgical visit [] Trauma [] Long length of stay [] ICU visit [] Other: Relational/Emotional Strength [] Patient feels connected with others/family/visitors/staff [] Distress [] Loneliness/isolation [] Abandonment Spirituality of Patient [x] Person of Vanessa [x] Attends Orthodox of their [place]essa [x] Believes in Prayer [] Reads Bible or Worship materials [] There are Spiritual issues to be addressed Embossing Machine Tender Interventions [x] Prayer [] Active listening [] Non-anxious presence [] Spiritual/emotional support [] Crisis/trauma care [] Spiritual counseling [] Bereavement support [] Provided bereavement packet [] Provided Bible/devotional materials [] Provided toy/stuffed animal, coloring book to patient or family member [] Provided Communion [] Anointing/[place] [] Salvation [] Completed spiritual assessment [] Other: Impact on Illness or Injury [] Angry [] Fearful [] Anxious [] Often cries [] Exhaustion [] Unable to work [] Unable to attend yazidism [] Unable to walk/stand [] Unable to read [] Unable to drive [] Unable to eat/drink [] Unable to sleep [] Unable to be with family [] Patient intubated [] Other: Summary Time spent with patient 5min
[2021-01-09] MEDS: doxycycline 100 mg Tablet PO (12:09)
[2021-01-09] MEDS: citalopram 20 mg Tablet PO (12:32)
[2021-01-09 12:47] LABS: Glucose Point of Care 112 mg/dL (70-110)
--- NOTE | 2021-01-09 16:17 | PM.DCS ---
Discharge Providers Date of Admission: 01/09/21 01:34 Date of Discharge: January 09, 2021 Attending Provider at Admission: Filippo Bergman Attending Provider at Discharge: Prosper Perry MD Diagnoses at Discharge Discharge Diagnosis (1) Diabetic gastroparesis: Status: Chronic (2) Diabetes mellitus type 1: Status: Chronic Permanent problem details: diagnosed age 15, history of peripheral neuropathy, gastroparesis and nephropathy (3) Nausea & vomiting: Status: Resolved Reason for Visit Reason for Visit: si Hospital Course Hospital Course 40 year old female with past medical history of diabetes, diabetic gastroparesis, right BKA with associated diabetic foot ulcer infection positive for MRSA currently on Bactrim, chronic pain syndrome who presents to emergency room with complaints of pain in the abdomen, nausea and vomiting. When asked when her symptoms started she says that it is constant. Earlier she expressed suicidal intentions due to ongoing unresolving chronic pain. Currently on 96-hour hold. Denies associated diarrhea or fever. No chest pain, shortness of breath, cough, palpitations. Denies dysuria.She was admitted for the management of nausea vomiting 2/2 diabetic gastroparesis/esophagitis. She was kept on PPI and nausea medications. Reglan as needed.Left lower extremity infected stump ulcer.She was continued on Bactrim.The most recent sensitivities revealed MRSA sensitive to sulfa. She denied any suicidal/homicidal ideation, psychiatry saw the patient and cleared her for discharge she was discharged on citalopram 20 mg p.o. daily as well as buspirone 15 mg p.o. twice daily. She will continue to follow-up with her outpatient appointments. Patient responded well to the above medical management and was discharged in stable condition. Physical Exam Const: COMMON NORMALS: patient oriented x3 HENMT: COMMON NORMALS: normocephalic and atraumatic HEAD & SCALP: normocephalic and atraumatic Chest: CHEST: Yes Symmetrical chest wall rise Resp: COMMON NORMALS: clear to auscultation bilaterally EFFORT & INSPECTION: Yes symmetric chest movement AUSCULTATION: clear to auscultation bilaterally Cardio: COMMON NORMALS: regular rate, regular rhythm, S1 normal heart sound present, S2 normal heart sound present, No gallops present (Cardio), No murmurs present (Cardio), No rub (Cardio) and Peripheral pulses 2+ throughout RATE: regular rate RHYTHM: regular rhythm HEART SOUNDS: S1 normal heart sound present and S2 normal heart sound present PERIPHERAL PULSES: Peripheral pulses 2+ throughout GI: COMMON NORMALS: Normal to inspection, nondistended, normoactive bowel sounds present, Soft to palpation, non-tender, No hepatosplenomegaly present and no masses AUSCULTATION: Yes normoactive bowel sounds PALPATION: Yes Soft to palpation and Yes No hepatosplenomegaly present RECTAL EXAM: deferred Extremity: NARRATIVE EXTREMITY EXAM: Left BKA. There is a large ulcer with purulent base where the stump is. No active discharge or bleeding. Neuro: COMMON NORMALS: patient oriented x3 Discharge Data Data Completed and Pending: Completed Studies During Hospitalization Category Date Time Status CT abdomen pelvis w con* [id number] Stat Cat Scan 01/08/21 22:23 Completed XR chest 1V angle ble [id number] Stat Exams 01/08/21 21:33 Completed Labs from last 24 hours 01/09/21 01/09/21 01/09/21 12:08 06:10 05:08 WBC RBC Hgb Hct MCV MCH MCHC RDW Plt Count MPV Neut % (Auto) Lymph % (Auto) Cannon % (Auto) Eos % (Auto) Baso % (Auto) Neut # (Auto) Lymph # (Auto) Cannon # (Auto) Eos # (Auto) Baso # (Auto) Nucleated RBC % (a uto) Nucleated RBCs # Sodium 138 Potassium 3.5 Chloride 103 Carbon Dioxide 20 L Anion Gap 18.5 BUN 7 Creatinine 1.2 H GFR Calculation 49.3 L Glucose 172 H POC Glucose 112 H 179 H Calculated Osmolal ity 288 Calcium 8.5 Phosphorus 4.1 Magnesium 1.8 Total Bilirubin AST ALT Alkaline Phosphata se Total Protein Albumin Globulin Lipase TSH Urine Color Urine Appearance Urine pH Ur Specific Gravit y Urine Protein Urine Glucose (UA) Urine Ketones Urine Blood Urine Nitrate Urine Bilirubin Urine Urobilinogen Ur Leukocyte Estephania ase Salicylates Urine Opiates Scre en Acetaminophen Ur Barbiturates Sc reen Ur Phencyclidine S crn Ur Amphetamines Sc reen U Benzodiazepines Scrn Urine Cocaine Scre en U Marijuana (THC) Screen Ethyl Alcohol 01/09/21 01/08/21 01/08/21 05:08 22:15 22:15 WBC 8.7 RBC 3.88 L Hgb 10.8 L Hct 34.0 L MCV 87.6 MCH 27.8 L MCHC 31.8 RDW 13.5 Plt Count 556 H MPV 8.7 Neut % (Auto) 82.4 Lymph % (Auto) 10.8 Cannon % (Auto) 5.6 Eos % (Auto) 0.1 Baso % (Auto) 0.5 Neut # (Auto) 7.17 Lymph # (Auto) 0.9 Cannon # (Auto) 0.5 Eos # (Auto) 0.0 Baso # (Auto) 0.0 Nucleated RBC % (a uto) 0 Nucleated RBCs # 0.0 Sodium Potassium Chloride Carbon Dioxide Anion Gap BUN Creatinine GFR Calculation Glucose POC Glucose Calculated Osmolal ity Calcium Phosphorus Magnesium Total Bilirubin AST ALT Alkaline Phosphata se Total Protein Albumin Globulin Lipase TSH Urine Color Yellow Urine Appearance Sl cloudy A Urine pH 6 Ur Specific Gravit y 1.015 Urine Protein 3+ H Urine Glucose (UA) Norm Urine Ketones 1+ H Urine Blood 2+ H Urine Nitrate Negative Urine Bilirubin Neg Urine Urobilinogen 8 H Ur Leukocyte Estephania ase Trace H Salicylates Urine Opiates Scre en Negative Acetaminophen Ur Barbiturates Sc reen Negative Ur Phencyclidine S crn Negative Ur Amphetamines Sc reen Negative U Benzodiazepines Scrn Negative Urine Cocaine Scre en Negative U Marijuana (THC) Screen Negative Ethyl Alcohol 01/08/21 01/08/21 01/08/21 21:52 21:52 21:52 WBC 8.9 RBC 4.04 L Hgb 11.3 L Hct 36.5 L MCV 90.3 MCH 28.0 MCHC 31.0 RDW 13.4 Plt Count 642 H MPV 9.0 Neut % (Auto) 67.5 Lymph % (Auto) 24.1 Cannon % (Auto) 6.9 Eos % (Auto) 0.2 Baso % (Auto) 0.8 Neut # (Auto) 6.00 Lymph # (Auto) 2.1 Cannon # (Auto) 0.6 Eos # (Auto) 0.0 Baso # (Auto) 0.1 Nucleated RBC % (a uto) 0 Nucleated RBCs # 0.0 Sodium 141 Potassium 4.1 Chloride 105 Carbon Dioxide 18 L Anion Gap 22.1 H BUN 9 Creatinine 1.5 H GFR Calculation 38.1 L Glucose 120 H POC Glucose Calculated Osmolal ity 292 Calcium 8.9 Phosphorus Magnesium Total Bilirubin 0.4 AST 21 ALT 16 Alkaline Phosphata se 116 H Total Protein 8.0 Albumin 3.6 Globulin 4.4 Lipase 21 TSH 0.18 L Urine Color Urine Appearance Urine pH Ur Specific Gravit y Urine Protein Urine Glucose (UA) Urine Ketones Urine Blood Urine Nitrate Urine Bilirubin Urine Urobilinogen Ur Leukocyte Estephania ase Salicylates < 0.3 L Urine Opiates Scre en Acetaminophen < 5.0 L Ur Barbiturates Sc reen Ur Phencyclidine S crn Ur Amphetamines Sc reen U Benzodiazepines Scrn Urine Cocaine Scre en U Marijuana (THC) Screen Ethyl Alcohol < 10 Vitals: Last Vital Signs Temp 97.8 F 01/09/21 12:00 Pulse 87 01/09/21 12:00 Resp 17 01/09/21 12:00 BP 86/45 01/09/21 12:00 Pulse Ox 98 01/09/21 12:00 Discharge Plan Discharge Patient Disposition: Home Condition: Stable Prescriptions: New citalopram 20 mg Tablet 20 mg PO DAILY 30 Days RF: 0 buspirone 10 mg Tablet 15 mg PO BID 30 Days Qty: 60 RF: 0 Continued metronidazole [Flagyl] 500 mg tablet 500 mg PO TID 14 Days Qty: 42 RF: 0 clarithromycin 500 mg tablet 500 mg PO BID 14 Days Qty: 28 RF: 0 Lantus Solostar U-100 Insulin 100 unit/mL (3 mL) insulin pen 5 unit SUBCUT BEDTIME RF: 0 dicyclomine 20 mg tablet 20 mg PO TID Qty: 20 RF: 0 insulin lispro 100 unit/mL Insulin Pen See Rx Instructions .ROUTE .COMPLEX RF: 0 cholestyramine (with sugar) 4 gram Powder In Packet 4 g PO BID Qty: 60 RF: 0 cyclobenzaprine 10 mg Tablet 10 mg PO TID PRN (Reason: Muscle Spasms) Qty: 30 RF: 0 pantoprazole 40 mg Tablet,Delayed Release (Dr/Ec) 40 mg PO BID Qty: 60 RF: 0 promethazine 25 mg Tablet 25 mg PO Q6H PRN (Reason: Nausea) Qty: 30 RF: 0 carvedilol 12.5 mg Tablet 12.5 mg PO BID RF: 0 amlodipine 10 mg Tablet 10 mg PO DAILY RF: 0 Discharge Orders: Discharge Order (Routine); Ordered 01/09/21 Ordered By: Prosper Perry Referrals: Angelic Martinez MD [Physician] - 01/31/21 10:15 am Discharge Diet: Diabetic Discharge Activity: Resume usual activity Patient Instructions: Buspirone (By mouth), Citalopram (By mouth), Diet for Ulcers and Gastritis (GEN), Acute Nausea and Vomiting (DC), Opioid Safety Discharge Attestations Time Spent in Discharge Care*: less than 30 min Specific Discharge Activities: educating patient, educating and/or supporting family/caregiver, discussing with pcp/other providers, discussing with case management coordinator/social workers/dc planners, documenting/other paperwork and evaluating patient/reviewing data Status at Discharge: Cognitive status at discharge: cognitively intact, Behavioral status at discharge: cooperative, Functional status at discharge: wheelchair bound Overall status at discharge: patient is back to baseline Quality Metrics Clinical Quality Measures During this hospital stay, did patient experience: None 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 Code Acute Chg FW DC note Exam Detailed Diagnoses Diabetic gastroparesis E11.43; K31.84 Diabetes mellitus type 1 E10.9 Nausea & vomiting R11.2
--- NOTE | 2021-01-09 16:46 | PC.NURSE ---
Educated patient on discharge instructions as well as follow up appointments. Also provided education on diet to control gastritis symptoms and helpful information about dehydration and new medications. Discussed the importance of filling out the Medicaid forms for insurance and taking medications as prescribed. Patient stated understanding.
[2021-01-09 17:21] LABS: Glucose Point of Care 106 mg/dL (70-110)
[2021-01-09] MEDS: BuSPIRONE 10 mg Tablet 15 MG PO (17:30)
[2021-01-09] MEDS: pantoprazole DR 40 mg Tablet PO (17:30)
[2021-01-09] MEDS: promethazine 25 mg/mL SDV 1 mL 12.5 MG IM (17:30)
[2021-01-09] MEDS: TRAMadol 50 mg Tablet PO (17:31)
== END 2021-01-09 20:30 | disposition home or self-care (01) ==
LOC: ER 23:58 → MEDSURG 01-09 01:48
PROVIDERS: Admitting Provider Internal Medicine; Emergency Provider Family Medicine; Visit Provider Internal Medicine
DX: E11.43 Type 2 diabetes mellitus with diabetic autonomic (poly)neuropathy (principal); R10.9 Unspecified abdominal pain; R11.2 Nausea with vomiting, unspecified; K31.84 Gastroparesis; E86.0 Dehydration; Z86.14 Personal history of Methicillin resistant Staphylococcus aureus infection; L97.829 Non-pressure chronic ulcer of other part of left lower leg with unspecified severity; E87.2 Acidosis; R45.851 Suicidal ideations
CPT/HCPCS: 36415; 36416; 71045; 74177; 80048; 80053; 80306; 80307; 81003; 82962; 83690; 83735; 84100; 84443; 85025; 96361; 96372; 96374; 96375; 97161; 99285; C9113; G0378; J0360; J1170; J1630; J1644; J1815; J2060; J2405; J2550; J3490; Q9967

== ENCOUNTER 2021-01-10 21:40 | Emergency (ER) | payer MEDICAID, SELFPAY ==
[2021-01-10 21:42] VITALS: BP 134/87; PULSE 98; RESP 20; TEMP 37.1; O2SAT 100; BMI 26.6
--- NOTE | 2021-01-11 00:46 | PC.NURSE ---
pt resting in wheelchair. respirations even and unlabored. pt is easy to rouse.
[2021-01-11 02:40] VITALS: BP 164/105; O2SAT 99
--- NOTE | 2021-01-11 02:46 | ED_ITS ---
Documented by User: SAMUEL Werner 01/11/21 03:43 HPI - Back Pain/Injury General: Chief Complaint: Back Pain/Injury Stated Complaint: Low back pain, N/V Time Seen by Provider: 01/11/21 02:29 History of Present Illness: HPI Narrative: Patient is a 40-year-old female comes to the ED with low back pain. Patient was just seen here in the ED on January 08 and was admitted and discharged yesterday January 09. Patient says she was having this same back pain before she discharged. She denies any acute injury, fall or trauma to cause back pain. Patient says that she has been dealing with pain for 3 years now and she says the last 2 time she was admitted here they do not do anything to help her. Associated symptoms: Deny abdominal pain, chills, dysuria, fatigue, fever(s), he maturia, nausea or vomiting Review of Systems Const: Denies: fever(s), chills or fatigue Eyes: Denies: change in vision or eye discomfort ENMT: Denies: throat pain, odynophagia, nasal discharge or nasal congestion Card: Denies: chest pain, palpitations, edema, swelling of feet/ankles, dyspnea on exertion or orthopnea Resp: Denies: dyspnea, productive cough or non-productive cough GI: Denies: abdominal pain, nausea, vomiting, diarrhea, constipation or hematochezia : Denies: flank pain, dysuria or hematuria Musc: Reports: back pain; Denies: neck pain or extremity swelling Skin/Breast: Denies: rash or new lesions Neuro: Denies: headache(s), numbness in extremities or weakness in extremities [facility] ED PFSH: Medical History Acute kidney injury Back pain CKD (chronic kidney disease) stage 2, GFR 60-89 ml/min baseline Cr is around 1.0 Coronary artery disease hx of stenting Diabetes mellitus type 1 diagnosed age 15, history of peripheral neuropathy, gastroparesis and nephropathy Diabetic foot ulcer s/p surgical intervention and eventual amputation Diabetic gastroparesis Diabetic ophthalmopathy DKA (diabetic ketoacidoses) Foot osteomyelitis, right Hyperlipidemia Hypertension Nausea & vomiting Non-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 Suicidal ideation Surgical History Below-knee amputation of left lower extremity H/O esophagogastroduodenoscopy (12/31/20) Bile reflux gastritis, grade B esophagitis H/O exploratory laparotomy x 3 History of amputation of right forefoot Hx of cholecystectomy Previous section x 3 S/P coronary artery stent placement x 1 S/P percutaneous endoscopic gastrostomy (PEG) tube placement Family History Unknown Diabetes extensive, type II Other CHF (congestive heart failure) Social History Smoking and tobacco status: former smoker Quit status (tobacco): has quit using tobacco Former quit date comment: 15 yrs ago Alcohol intake: former Former alcohol use details: 15 yrs ago Household members: spouse Marital status: Sexually active: Yes (1, ) Female Reproductive History: Date of last menstrual period: 12/17/20 Physical Exam Const: COMMON NORMALS: no acute distress, patient oriented x3 and alert OTHER: While patient was out in the lobby she was sitting comfortably in wheelchair not showing any signs of acute distress. She was sleeping when nurse came out and grabbed patient to take her back to her room. When I entered patient's room for exam she started crying and shaking and pain. HENMT: COMMON NORMALS: normocephalic HEAD & SCALP: normocephalic MOUTH: Normal oral and palatal mucosa present THROAT: posterior oropharynx normal and uvula midline Neck/C-Spine: COMMON NORMALS: supple GENERAL: Yes normal visual inspection Resp: COMMON NORMALS: normal respiratory effort, No retractions, No use of accessory muscles and clear to auscultation bilaterally AUSCULTATION: clear to auscultation bilaterally Cardio: COMMON NORMALS: regular rate, regular rhythm, S1 normal heart sound present, S2 normal heart sound present, No gallops present (Cardio), No clicks present (Cardio), No murmurs present (Cardio) and Peripheral pulses 2+ throughout RATE: regular rate RHYTHM: regular rhythm HEART SOUNDS: S1 normal heart sound present and S2 normal heart sound present PERIPHERAL PULSES: Peripheral pulses 2+ throughout GI: COMMON NORMALS: Normal to inspection, nondistended, normoactive bowel sounds present, Soft to palpation, non-tender and no masses PALPATION: Yes Soft to palpation : COMMON NORMALS: Yes no CVA tenderness BLADDER/KIDNEY EXAM: Yes no CVA tenderness Back/Pelvis: COMMON NORMALS: no CVA tenderness Extremity: GENERAL: Yes normal exam except as noted and Yes amputation (Below the knee amputation of left lower extremity.) Neuro: COMMON NORMALS: patient oriented x3 and moves all extremities SENSORIUM/ORIENTATION: Yes alert Skin: GENERAL SKIN EXAM: dry skin Course Reevaluation(s): Reevaluation #1: Patient was given some IM Toradol and Zofran. She says it did not help her pain and that she can be discharged home and pain like this. She made threats of hurting herself. Vital Signs: Vital signs: Vital Signs Temperature 98.8 F 01/10/21 21:42 Pulse Rate 98 01/10/21 21:42 Respiratory Rate 20 H 01/10/21 21:42 Blood Pressure 164/105 01/11/21 02:40 Pulse Oximetry 99 01/11/21 02:40 MDM - Back Pain/Injury MDM Narrative: Medical decision making narrative: Patient was not in any acute distress or pain while she was sitting in the lobby. She was asleep and a wheelchair when the nurse grabbed her to bring her back to her room in the ED. When I entered the patient's room to do an evaluation she started crying and shaking saying that she is in pain. Patient was given IM Toradol and Zofran here in the ED and she was set up for discharge. Patient then told the nurse that she cannot go home in pain like this and made a threat about hurting herself. Nurse told me what patient said went in and talked with patient. She told me similar thing and said that she can go home and pain like this. I asked her about her recent admission and discharge and she said that they do not ever do anything or try to help her when she has been admitted here in the hospital. She also told me that she cannot live in this kind of pain like she has had for the last 3 years. I went in and spoke with Dr. Santos about patient case and about her pain and threats of self-harm. Dr. Santos then went in with patient and had a long discussion with her. He told her that she needs to see pain management to help manage her pain and told her that she will not be getting any narcotic pain meds tonight. He then left room and came out and spoke with me about patient and agreed with continuing discharge home orders for patient. Discharge Plan Discharge Patient Disposition: Home Clinical Impression: Low back pain Qualifiers: Chronicity: unspecified Back pain laterality: bilateral Sciatica presence: without sciatica Qualified Code(s): M54.5 - Low back pain Condition: Stable Prescriptions: New meloxicam 15 mg tablet 15 mg PO DAILY Qty: 15 RF: 0 No Action metronidazole [Flagyl] 500 mg tablet 500 mg PO TID 14 Days Qty: 42 RF: 0 clarithromycin 500 mg tablet 500 mg PO BID 14 Days Qty: 28 RF: 0 Lantus Solostar U-100 Insulin 100 unit/mL (3 mL) insulin pen 5 unit SUBCUT BEDTIME RF: 0 dicyclomine 20 mg tablet 20 mg PO TID Qty: 20 RF: 0 insulin lispro 100 unit/mL Insulin Pen See Rx Instructions .ROUTE .COMPLEX RF: 0 cholestyramine (with sugar) 4 gram Powder In Packet 4 g PO BID Qty: 60 RF: 0 cyclobenzaprine 10 mg Tablet 10 mg PO TID PRN (Reason: Muscle Spasms) Qty: 30 RF: 0 pantoprazole 40 mg Tablet,Delayed Release (Dr/Ec) 40 mg PO BID Qty: 60 RF: 0 promethazine 25 mg Tablet 25 mg PO Q6H PRN (Reason: Nausea) Qty: 30 RF: 0 carvedilol 12.5 mg Tablet 12.5 mg PO BID RF: 0 amlodipine 10 mg Tablet 10 mg PO DAILY RF: 0 citalopram 20 mg Tablet 20 mg PO DAILY 30 Days RF: 0 buspirone 10 mg Tablet 15 mg PO BID 30 Days Qty: 60 RF: 0 Discharge Orders: Discharge ED (Routine); Ordered 01/11/21 Ordered By: Roger Salas Discharge Diet: Regular Discharge Activity: Increase activity as tolerated Patient Instructions: Back Pain (ED) Activity Restrictions/Additional Instructions: Follow-up with medical provider as directed. Take medications as prescribed. Apply cold pack on lower back and rest help symptoms. Return to the ER or your medical provider if condition worsens. Please read and understand discharge instructions. Thank you for choosing [facility] for your healthcare needs today. Please realize this is an emergency room and that we are providing you with a medical screening exam and this may not be complete and all inclusive of all the testing and or work up that you may need to determine your ailment or severity of your illness. It is very important that you follow up as instructed or that you return to the Emergency Department should you have concerns or if your condition changes or worsens in any way. 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 Code ED Records Management Clerk for Chg Fwd Exam Comprehensive Documented by User: Paco Santos MD 01/11/21 04:41 HPI - Back Pain/Injury General: Chief Complaint: Back Pain/Injury Stated Complaint: Low back pain, N/V Time Seen by Provider: 01/11/21 02:29 [facility] ED PFSH: Medical History Acute kidney injury Back pain CKD (chronic kidney disease) stage 2, GFR 60-89 ml/min baseline Cr is around 1.0 Coronary artery disease hx of stenting Diabetes mellitus type 1 diagnosed age 15, history of peripheral neuropathy, gastroparesis and nephropathy Diabetic foot ulcer s/p surgical intervention and eventual amputation Diabetic gastroparesis Diabetic ophthalmopathy DKA (diabetic ketoacidoses) Foot osteomyelitis, right Hyperlipidemia Hypertension Nausea & vomiting Non-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 Suicidal ideation Surgical History Below-knee amputation of left lower extremity H/O esophagogastroduodenoscopy (12/31/20) Bile reflux gastritis, grade B esophagitis H/O exploratory laparotomy x 3 History of amputation of right forefoot Hx of cholecystectomy Previous section x 3 S/P coronary artery stent placement x 1 S/P percutaneous endoscopic gastrostomy (PEG) tube placement Family History Unknown Diabetes extensive, type II Other CHF (congestive heart failure) Social History Smoking and tobacco status: former smoker Quit status (tobacco): has quit using tobacco Former quit date comment: 15 yrs ago Alcohol intake: former Former alcohol use details: 15 yrs ago Household members: spouse Marital status: Sexually active: Yes (1, ) Course Vital Signs: Vital signs: Vital Signs Temperature 98.8 F 01/10/21 21:42 Pulse Rate 98 01/10/21 21:42 Respiratory Rate 20 H 01/10/21 21:42 Blood Pressure 164/105 01/11/21 02:40 Pulse Oximetry 99 01/11/21 02:40 Discharge Plan Discharge Patient Disposition: Home Clinical Impression: Low back pain Qualifiers: Chronicity: unspecified Back pain laterality: bilateral Sciatica presence: without sciatica Qualified Code(s): M54.5 - Low back pain Condition: Stable Prescriptions: New meloxicam 15 mg tablet 15 mg PO DAILY Qty: 15 RF: 0 No Action metronidazole [Flagyl] 500 mg tablet 500 mg PO TID 14 Days Qty: 42 RF: 0 clarithromycin 500 mg tablet 500 mg PO BID 14 Days Qty: 28 RF: 0 Lantus Solostar U-100 Insulin 100 unit/mL (3 mL) insulin pen 5 unit SUBCUT BEDTIME RF: 0 dicyclomine 20 mg tablet 20 mg PO TID Qty: 20 RF: 0 insulin lispro 100 unit/mL Insulin Pen See Rx Instructions .ROUTE .COMPLEX RF: 0 cholestyramine (with sugar) 4 gram Powder In Packet 4 g PO BID Qty: 60 RF: 0 cyclobenzaprine 10 mg Tablet 10 mg PO TID PRN (Reason: Muscle Spasms) Qty: 30 RF: 0 pantoprazole 40 mg Tablet,Delayed Release (Dr/Ec) 40 mg PO BID Qty: 60 RF: 0 promethazine 25 mg Tablet 25 mg PO Q6H PRN (Reason: Nausea) Qty: 30 RF: 0 carvedilol 12.5 mg Tablet 12.5 mg PO BID RF: 0 amlodipine 10 mg Tablet 10 mg PO DAILY RF: 0 citalopram 20 mg Tablet 20 mg PO DAILY 30 Days RF: 0 buspirone 10 mg Tablet 15 mg PO BID 30 Days Qty: 60 RF: 0 Discharge Orders: Discharge ED (Routine); Ordered 01/11/21 Ordered By: Roger Salas Discharge Diet: Regular Discharge Activity: Increase activity as tolerated Patient Instructions: Back Pain (ED) Activity Restrictions/Additional Instructions: Follow-up with medical provider as directed. Take medications as prescribed. Apply cold pack on lower back and rest help symptoms. Return to the ER or your medical provider if condition worsens. Please read and understand discharge instructions. Thank you for choosing [facility] for your healthcare needs today. Please realize this is an emergency room and that we are providing you with a medical screening exam and this may not be complete and all inclusive of all the testing and or work up that you may need to determine your ailment or severity of your illness. It is very important that you follow up as instructed or that you return to the Emergency Department should you have concerns or if your condition changes or worsens in any way. 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 Code ED Records Management Clerk for Kim Mitchell Exam Comprehensive
[2021-01-11] MEDS: ketorolac 60 mg/2 mL INJ IM (02:50)
[2021-01-11] MEDS: ondansetron 2 mg/ML SDV 2 mL 4 MG IM (02:50)
== END 2021-01-11 03:56 | disposition home or self-care (01) ==
PROVIDERS: Emergency Provider Physician Assistant
DX: M54.5 Low back pain (principal); Z87.891 Personal history of nicotine dependence; Z79.4 Long term (current) use of insulin; E10.21 Type 1 diabetes mellitus with diabetic nephropathy; N18.2 Chronic kidney disease, stage 2 (mild)
CPT/HCPCS: 96372; 99283; J1885; J2405

== ENCOUNTER 2021-01-11 13:18 | Inpatient (IN) | payer MEDICAID, SELFPAY ==
[2021-01-11 13:20] VITALS: BP 165/86; PULSE 118; RESP 32; TEMP 36.4; O2SAT 95; BMI 26.6
--- NOTE | 2021-01-11 13:21 | ECG_ITS ---
[facility] Test Date: 2021-01-11 Pat Name: Cherrie Solomon Department: Room: Gender: Female Installment Agent: : 1980 Requested By: Adama Clancy Order Number: [id number] Jeff MD: Donal Johnson M.D. Measurements Intervals Smoot Rate: 100 P: 3 NM: 122 QRS: 5 QRSD: 98 T: 74 QT: 355 QTc: 459 Interpretive Statements SINUS TACHYCARDIA NONSPECIFIC T-WAVE ABNORMALITY Compared to ECG 12/27/2020 14:58:49 T-wave abnormality now present Sinus rhythm no longer present Short NM interval no longer present Electronically Signed On 01-11-2021 17:41:23 CDT by Donal Johnson M.D. [email or web address]
--- NOTE | 2021-01-11 13:35 | W.ED.PSYCH ---
HPI - Psych General: Chief Complaint: Psychiatric Symptoms Stated Complaint: 2 SUICIDE ATTEMPTS Time Seen by Provider: 01/11/21 13:20 History of Present Illness: HPI Narrative: 40-year-old female presents emergency room with complaint of low back pain additionally she states she is made 2 attempts to kill her self since she was discharged 2 days ago. Overnight she states she tried to cut her wrists and she attempted to hang herself with a electrical cord. Neither resulted in any significant injury. Her main complaint at the bedside is that of back pain. She denies any fever sweats chills denies abdominal pain denies chest pain or shortness of breath. She has mild dysuria as well as some suprapubic pain MD complaint: suicidal ideation Onset (ago): day(s) Duration: constant History of same: Yes Relieving factors: none Exacerbating factors: none Associated psychiatric symptoms: depression and suicidal ideation Treatments prior to arrival: none If self harm: admits thoughts of self harm, has plan, has acted on plan and self-inflicted trauma Details of plan: Attempted to hang herself with electrical cord Review of Systems Const: Denies: fever(s), chills, body aches, change in appetite, fatigue or malaise ENMT: Denies: throat pain, ear or mastoid pain, nasal discharge or nasal congestion Card: Denies: chest pain, edema, dyspnea on exertion or orthopnea Resp: Denies: dyspnea, productive cough or non-productive cough GI: Denies: abdominal pain, nausea, vomiting, hematemesis, coffee ground emesis, diarrhea, constipation, bloating, hematochezia or melena : Denies: flank pain, difficulty voiding, dysuria, urinary frequency or urinary urgency Musc: Reports: back pain Skin/Breast: Denies: rash or pruritus PFSH ED PFSH: Medical History Acute kidney injury Back pain CKD (chronic kidney disease) stage 2, GFR 60-89 ml/min baseline Cr is around 1.0 Coronary artery disease hx of stenting Diabetes mellitus type 1 diagnosed age 15, history of peripheral neuropathy, gastroparesis and nephropathy Diabetic foot ulcer s/p surgical intervention and eventual amputation Diabetic gastroparesis Diabetic ophthalmopathy DKA (diabetic ketoacidoses) Foot osteomyelitis, right Hyperlipidemia Hypertension Nausea & vomiting Non-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 Suicidal ideation Surgical History Below-knee amputation of left lower extremity H/O esophagogastroduodenoscopy (12/31/20) Bile reflux gastritis, grade B esophagitis H/O exploratory laparotomy x 3 History of amputation of right forefoot Hx of cholecystectomy Previous section x 3 S/P coronary artery stent placement x 1 S/P percutaneous endoscopic gastrostomy (PEG) tube placement Family History Unknown Diabetes extensive, type II Other CHF (congestive heart failure) Social History Smoking and tobacco status: former smoker Quit status (tobacco): has quit using tobacco Former quit date comment: 15 yrs ago Alcohol intake: former Former alcohol use details: 15 yrs ago Household members: spouse Marital status: Sexually active: Yes (1, ) Female Reproductive History: Date of last menstrual period: 12/17/20 Physical Exam Const: ORIENTATION/CONSCIOUSNESS: Yes awake, Yes oriented to person, Yes oriented to place and Yes oriented to time HENMT: COMMON NORMALS: normocephalic, atraumatic, hearing grossly normal bilaterally and external ears normal HEAD & SCALP: normocephalic and atraumatic EXTERNAL EAR: Yes external ears normal Eye: COMMON NORMALS: Equal, round and reactive pupils present, EOMs intact bilaterally, conjunctivae normal and no scleral icterus CONJUNCTIVA: Yes conjunctivae normal PUPIL: Yes Equal, round and reactive pupils present Neck/C-Spine: COMMON NORMALS: full ROM, no lymphadenopathy, supple and no JVD Lymph: LYMPHATIC: no lymphadenopathy noted and no lymphedema noted Resp: COMMON NORMALS: normal respiratory effort, No retractions, No use of accessory muscles and clear to auscultation bilaterally AUSCULTATION: clear to auscultation bilaterally Cardio: COMMON NORMALS: no JVD, regular rate, regular rhythm and No murmurs present (Cardio) RATE: regular rate RHYTHM: regular rhythm GI: COMMON NORMALS: Soft to palpation and No hepatosplenomegaly present AUSCULTATION: Yes normoactive bowel sounds PALPATION: Yes Soft to palpation, No Tenderness to palpation present (GI), No Guarding due to palpation present (GI) and Yes No hepatosplenomegaly present Neuro: SENSORIUM/ORIENTATION: Yes oriented to person, Yes oriented to place and Yes oriented to time Course Vital Signs: Vital signs: Vital Signs Temperature 98.7 F 01/12/21 11:21 Pulse Rate 76 01/12/21 11:21 Respiratory Rate 18 01/12/21 11:21 Blood Pressure 111/63 01/12/21 11:21 Pulse Oximetry 95 01/12/21 11:21 MDM - Psych MDM Narrative: Medical decision making narrative: Patient has severe back pain. Additionally she has acute kidney injury. She will need hydration and monitoring. Will admit to the hospitalist consult psychiatry discussed with them patient was placed on a 96-hour hold. Patient is complaining of flank and abdominal pain over 2 days ago she had identical symptoms this is generally chronic in nature. She was bargaining for increased potency narcotics and increased dosages. I did not repeat her CT as her is disproportionate to exam. No think a CT would really add much will titrate pain medications admit to the floor. Lab Data: Labs: Lab Results 01/11/21 01/11/21 01/11/21 Range/Units 14:13 14:13 14:57 WBC 8.2 (4.0-10.0) 10^3/ uL RBC 3.80 L (4.1-5.3) 10^6/u L Hgb 10.6 L (11.5-15.3) g/dL Hct 31.8 L (37.0-47.0) % MCV 83.7 (81-99) fL MCH 27.9 L (28.0-34.0) pg MCHC 33.3 (30.0-36.0) g/dL RDW 13.4 (12.1-15.1) % Plt Count 640 H (130-400) 10^3/c mm MPV 8.3 (7.4-10.4) fL Neut % (Auto) 74.9 % Lymph % (Auto) 16.7 % [place] % (Auto) 7.4 % Eos % (Auto) 0.5 % Baso % (Auto) 0.4 % Neut # (Auto) 6.11 (1.8-7.7) 10^3/u L Lymph # (Auto) 1.4 (0.8-4.8) 10^3/u L [place] # (Auto) 0.6 (0.2-0.9) 10^3/u L Eos # (Auto) 0.0 (0.0-0.8) 10^3/u L Baso # (Auto) 0.0 (0.0-0.1) 10^3/u L Nucleated RBC % (a uto) 0 % Nucleated RBCs # 0.0 /100WBC Sodium 134 L (136-145) mmol/L Potassium 3.5 (3.5-5.1) mmol/L Chloride 95 L (98-107) mmol/L Carbon Dioxide 21 L (22-29) mmol/L Anion Gap 21.5 H (5-19) BUN 22 H (6-20) mg/dL Creatinine 2.5 H (0.5-0.9) mg/dL GFR Calculation 21.1 L (90-130) mL/min Glucose 121 H (65-115) mg/dL Calculated Osmolal ity 283 L (285-295) mOsm/k g Calcium 8.8 (8.5-10.5) mg/dL Total Bilirubin 0.4 (0.15-1.2) mg/dL AST 17 (0-32) U/L ALT 16 (0-33) U/L Alkaline Phosphata se 115 H (35-105) IU/L Total Protein 7.3 (6.6-8.7) g/dL Albumin 3.9 (3.5-5.2) g/dL Globulin 3.4 (1.3-4.6) g/dL Urine Color Dark yellow (Yellow) Urine Appearance Hazy A (CLEAR) Urine pH 5 (5-7) Ur Specific Gravit y 1.025 (1.005-1.030) Urine Protein 3+ H (Negative) Urine Glucose (UA) Norm (Normal) Urine Ketones 1+ H (Negative) Urine Blood Neg (Negative) Urine Nitrate Negative (Negative) Urine Bilirubin 2+ H (Negative) Urine Urobilinogen 4 H (Negative) mg/dL Ur Leukocyte Estephania ase Negative (Negative) Urine RBC None (0-2) /hpf Urine WBC None (0-5) /hpf Ur Squamous Epith Cells 25-40 H (0-5) /hpf Amorphous Sediment 1+ /hpf Urine Bacteria 1+ H (NONE) /hpf Hyaline Casts 80-100 H /lpf Salicylates < 0.3 L (3-10) mg/dL Acetaminophen < 5.0 L (10-30) ug/mL Discharge Plan Discharge Patient Disposition: Admitted As Inpatient Admit Provider: Mele Friedman Clinical Impression: FIONA (acute kidney injury), Diabetes mellitus type 1, Diabetic gastroparesis, Low back pain, Suicide attempt Condition: Stable Discharge Diet: Usual diet Discharge Activity: Increase activity as tolerated 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 Code ED Paid Intern for [facility]
[2021-01-11 14:22] LABS: Basophils % 0.4 %; Eosinophils % 0.5 %; Hematocrit 31.8 % (37.0-47.0); Hemoglobin 10.6 g/dL (11.5-15.3); Lymphocytes # 1.4 10^3/uL (0.8-4.8); Lymphocytes % 16.7 %; Mean Corpuscular HGB Conc 33.3 g/dL (30.0-36.0); Mean Corpuscular Hemoglobin 27.9 pg (28.0-34.0); Mean Corpuscular Volume 83.7 fL (81-99); Mean Platelet Volume 8.3 fL (7.4-10.4); Monocytes # 0.6 10^3/uL (0.2-0.9); Monocytes % 7.4 %; Neutrophils # 6.11 10^3/uL (1.8-7.7); Neutrophils % 74.9 %; Nucleated Red Blood Cells % 0 %; Platelet Count 640 10^3/cmm (130-400); Red Cell Distribution Width 13.4 % (12.1-15.1); White Blood Count 8.2 10^3/uL (4.0-10.0)
[2021-01-11 14:42] LABS: Alanine Aminotransferase 16 U/L (0-33); Albumin Level 3.9 g/dL (3.5-5.2); Alkaline Phosphatase 115 IU/L (35-105); Anion Gap 21.5 (5-19); Aspartate Amino Transferase 17 U/L (0-32); Blood Urea Nitrogen 22 mg/dL (6-20); Calcium 8.8 mg/dL (8.5-10.5); Carbon Dioxide 21 mmol/L (22-29); Chloride 95 mmol/L (98-107); Globulin 3.4 g/dL (1.3-4.6); Glomerular Filtration Rate 21.1 mL/min (90-130); Glucose 121 mg/dL (65-115); Osmolality Calculated 283 mOsm/kg (285-295); Potassium 3.5 mmol/L (3.5-5.1); Sodium 134 mmol/L (136-145); Total Bilirubin 0.4 mg/dL (0.15-1.2); Total Protein 7.3 g/dL (6.6-8.7)
[2021-01-11 14:43] LABS: Acetaminophen < 5.0 ug/mL (10-30); Salicylate < 0.3 mg/dL (3-10)
--- NOTE | 2021-01-11 15:03 | PC.NURSE ---
Can not get a set of vital, pt crying, standing beside bed. leaning head first in the mattress. Pulling her hair out.
--- NOTE | 2021-01-11 15:14 | PC.PHAR ---
PT CRYING HYSTERICALLY. SHE STATES TO THE NURSE THAT SHE DID NOT WANT TO TALK TO ME ABOUT HER MEDICATIONS. I WENT BY MEDICATION HISTORY AND PHARMACY LIST.
[2021-01-11] MEDS: orphenadrine 30 mg/mL Inj 2 mL 60 MG IVP (15:15)
[2021-01-11] MEDS: HYDROcodone-acetaminophen 5-325 mg Tablet 1 TAB PO (15:18)
--- NOTE | 2021-01-11 15:28 | PC.NURSE ---
pt attempting to crawl out of her room and speak to the doctor about receiving another specifically requested medication. RN and security in room and assisted pt back into her bed. ER physician notified and in room to speak with pt.
[2021-01-11] MEDS: sodium chloride 0.9% 1,000 ML 999 ML IV (15:39)
--- NOTE | 2021-01-11 15:42 | PC.NURSE ---
Pt states that she is allergic to Morphine ,but according to Dr Ceballos pt can take Morphine. Pt said that she will take the 2mg dose of Morphine.
--- NOTE | 2021-01-11 15:47 | PC.NURSE ---
Called pharmacy about the Morphine allergies and Dr Ceballos approved the Morphine. Ravinder in pharmacy released 2mg Morphine.
[2021-01-11 15:49] LABS: Protein Urine 3+ (Negative); Specific Gravity, Urine 1.025 (1.005-1.030); Urine Appearance Hazy (CLEAR); Urine Color Dark Yellow (Yellow); pH Urine 5 (5-7)
[2021-01-11 15:50] VITALS: RESP 24
[2021-01-11 15:50] LABS: Add Urine Microscopic? YES; Bilirubin Urine 2+ (Negative); Blood Urine Neg (Negative); Glucose Urine UA Norm (Normal); Ketones Urine 1+ (Negative); Leukocyte Esterase Urine Negative (Negative); Nitrate Urine Negative (Negative); Urobilinogen Urine 4 mg/dL (Negative)
[2021-01-11] MEDS: morphine 4 mg/mL SDV 1 mL 2 MG IVP (15:50)
[2021-01-11] MEDS: LORazepam 2 mg/mL INJ 1 mL IVP (16:17)
[2021-01-11] MEDS: ziprasidone 20 mg/mL SDV 10 MG IM (16:17)
[2021-01-11 16:21] VITALS: RESP 24
[2021-01-11] MEDS: morphine 4 mg/mL SDV 1 mL IVP (16:21)
[2021-01-11] MEDS: ziprasidone 20 mg/mL SDV (16:23)
[2021-01-11 16:24] LABS: Add Urine Culture? No; Amorphous Sediment Urine 1+ /hpf; Bacteria Urine 1+ /hpf; Hyaline Casts Urine 80-100 /lpf; Squamous Epithelial Cell Urine 25-40 /hpf (0-5)
--- NOTE | 2021-01-11 16:45 | PC.NURSE ---
Dr Ceballos in room, assessing pt. Gave verbal for med. Meds given, asked pt to get back in bed before giving meds and she did.
--- NOTE | 2021-01-11 16:47 | PC.NURSE ---
Pt agreed to accept and take all meds without any hesitation. Sitter at doorway Pt in bed and resting after medication and fluids
--- NOTE | 2021-01-11 17:15 | P.HP_ITS ---
Providers/Chief Complaint Chief Complaint: 2 SUICIDE ATTEMPTS History of Present Illness 40-year-old lady recently admitted here and managed for nausea with gastroparesis, abdominal pain with normal CT abdomen pelvis, at that time expressing suicidal ideation, however, on reassessment denied this, was assessed by psychiatry, 96-hour hold was rescinded, and after feeling better, tolerating oral diet was discharged home, returns to ER after suicidal attempt of hanging by an electrical cord, attempts to slit her wrists due to suicidal ideation. EMS had expressed concern that she may have been taking somewhat more of her buspirone and SSRI, however, she denies any medication overdose. She states that she is bothered by exacerbation of her chronic back pain in her lower back. She is still having nausea. In ER she is noted to have acute kidney injury on chronic kidney disease, creatinine up to 2.5, baseline around 1.1. She is noted to have sinus tachycardia around 100 bpm. Nonspecific T wave abnormality on EKG. Blood pressure is mildly elevated. She is afebrile. Saturating well on room air. No neck injuries are noted. No ligature arambula. Some scratches are noted on her forearms and wrists, without lacerations. In the ER she is restless, moaning, crying, notably one-to-one sitter getting up from bed, the one-to-one sitter had to stop her from hitting her head on the bed frame and trying to scratch her hands on the bed frame bolts. In ER she received Geodon, Ativan. Morphine, hydrocodone. Norflex. She is placed on 96-hour hold with psychiatry consultation. Review of Systems Narrative: Gives limited review of systems due to psychological state. Const: Denies: fever(s) ENMT: Denies: throat pain Card: Denies: chest pain Resp: Denies: dyspnea GI: Reports: nausea; Denies: abdominal pain, vomiting, diarrhea, constipation, hematochezia or melena : Denies: flank pain, urinary frequency or hematuria Musc: Reports: back pain; Denies: joint swelling or joint redness Skin/Breast: Reports: other (Excoriations on forearms. No lacerations. No ligature arambula.); Denies: rash, sores or new lesions Neuro: Denies: headache(s), numbness in extremities, weakness in extremities, dizziness, confusion or seizure-like activity Keith/Lymph: Denies: easy bleeding All/Imm: Denies: throat swelling Medications/Allergies Home Medications Medication Instructions Recorded Confirmed Last Taken Type insulin lispro See Rx Instructions .ROUTE .COMPLEX 12/13/20 01/11/21 12/21/20 History Lantus Solostar U-100 Insulin 5 unit SUBCUT BEDTIME 12/24/20 01/11/21 12/23/20 History cholestyramine (with sugar) 4 g PO BID #60 ea 12/31/20 01/11/21 Unknown Rx cyclobenzaprine 10 mg PO TID PRN #30 tab 12/31/20 01/11/21 Unknown Rx pantoprazole 40 mg PO BID #60 tab 12/31/20 01/11/21 Unknown Rx promethazine 25 mg PO Q6H PRN #30 tab 12/31/20 01/11/21 Unknown Rx clarithromycin 500 mg tablet 500 mg PO BID 14 Days #28 tab 01/06/21 01/11/21 Unknown Rx metronidazole 500 mg tablet 500 mg PO TID 14 Days #42 tab 01/06/21 01/11/21 Unknown Rx dicyclomine 20 mg PO TID #20 tab 01/07/21 01/11/21 Unknown Rx amlodipine 10 mg PO DAILY 01/09/21 01/11/21 Unknown History buspirone 15 mg PO BID 30 Days #60 tab 01/09/21 01/11/21 Unknown Rx carvedilol 12.5 mg PO BID 01/09/21 01/11/21 Unknown History citalopram 20 mg PO DAILY 30 Days tab 01/09/21 01/11/21 Unknown Rx cholestyramine-aspartame 1 ea PO BID 01/11/21 01/11/21 Unknown History [Prevalite] gabapentin 100 mg PO Q12H 01/11/21 01/11/21 Unknown History glipizide 5 mg PO DAILY 01/11/21 01/11/21 Unknown History lisinopril 10 mg PO DAILY 01/11/21 01/11/21 Unknown History meloxicam 15 mg PO DAILY #15 tab 01/11/21 01/11/21 Unknown Rx metformin 500 mg PO BID 01/11/21 01/11/21 Unknown History sulfamethoxazole-trimethoprim 1 tab PO DAILY 01/11/21 01/11/21 Unknown History Allergies Allergy/AdvReac Type Severity Reaction Status Date / Time morphine Allergy ALGY-Difficulty Verified 01/08/21 21:30 Breathing PFSH Acute PFSH: Medical History Acute kidney injury Back pain CKD (chronic kidney disease) stage 2, GFR 60-89 ml/min baseline Cr is around 1.0 Coronary artery disease hx of stenting Diabetes mellitus type 1 diagnosed age 15, history of peripheral neuropathy, gastroparesis and nephropathy Diabetic foot ulcer s/p surgical intervention and eventual amputation Diabetic gastroparesis Diabetic ophthalmopathy DKA (diabetic ketoacidoses) Foot osteomyelitis, right Hyperlipidemia Hypertension Nausea & vomiting Non-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 Suicidal ideation Surgical History Below-knee amputation of left lower extremity H/O esophagogastroduodenoscopy (12/31/20) Bile reflux gastritis, grade B esophagitis H/O exploratory laparotomy x 3 History of amputation of right forefoot Hx of cholecystectomy Previous section x 3 S/P coronary artery stent placement x 1 S/P percutaneous endoscopic gastrostomy (PEG) tube placement Family History Unknown Diabetes extensive, type II Other CHF (congestive heart failure) Social History Smoking and tobacco status: former smoker Quit status (tobacco): has quit using tobacco Former quit date comment: 15 yrs ago Alcohol intake: former Former alcohol use details: 15 yrs ago Household members: spouse Marital status: Sexually active: Yes (1, ) Female Reproductive History: Date of last menstrual period: 12/17/20 Vitals/I&O/Wt Last Vital Signs Temp 97.5 F L 01/11/21 13:20 Pulse 118 H 01/11/21 13:20 Resp 24 H 01/11/21 16:21 BP 165/86 01/11/21 13:20 Pulse Ox 95 01/11/21 13:20 Weight last 48 hrs Weight 81.647 kg Physical Exam Const: COMMON NORMALS: no acute distress and patient oriented x3 EXAM LIMITATIONS: behavioral limitations GENERAL APPEARANCE: disheveled and other (Crying) HENMT: COMMON NORMALS: oropharynx normal Neck/C-Spine: COMMON NORMALS: no JVD Resp: COMMON NORMALS: normal respiratory effort and clear to auscultation bilaterally AUSCULTATION: clear to auscultation bilaterally Cardio: COMMON NORMALS: no JVD, regular rhythm, S1 normal heart sound present, S2 normal heart sound present and No murmurs present (Cardio) RHYTHM: regular rhythm HEART SOUNDS: S1 normal heart sound present and S2 normal heart sound present GI: COMMON NORMALS: Normal to inspection, nondistended, normoactive bowel sounds present, Soft to palpation and non-tender PALPATION: Yes Soft to palpation Extremity: COMMON NORMALS: no joint enlargement and no pedal edema OTHER: Left BKA. Right foot toe amputations. Neuro: COMMON NORMALS: patient oriented x3 and moves all extremities Skin: COMMON NORMALS: no rashes or lesions noted LESIONS: other (Excoriations on forearms and wrists. Excoriations on right foot/ankle.) Data : 01/11/21 14:13 01/11/21 14:13 A&P Assessment and plan (1) Suicide attempt: PatientAttempt at hanging with electrical cord, attempted wrist/phlebotomy. Pending psychiatric assessment. 96-hour hold. One-to-one sitter. Denies drug overdose. Monitor vitals, reassess laboratory studies in the [facility]. Status: Acute (2) Depression: As above. Status: Acute (3) FIONA (acute kidney injury): Difficult to say exact etiology. Acute kidney injury on chronic kidney disease. Possibly secondary to Bactrim use to treat recent stump MRSA infection. Appears she also may be taking meloxicam at home. With hyaline casts noted in urine. Recently with nausea, poor oral intake, gastritis, gastroparesis. Possibly degree of dehydration with prerenal renal failure. At this time will discontinue Bactrim. DC NSAIDs. Hold lisinopril. We will request urine studies. Assess kidney ultrasound. Status: Acute (4) Low back pain: Assess XR L spine Status: Acute Qualifiers: Back pain laterality: bilateral Chronicity: unspecified Sciatica presence: without sciatica Qualified Code(s): M54.5 - Low back pain (5) Hypertension: Continue antihypertensives except lisinopril. Monitor blood pressures. Status: Chronic Qualifiers: Hypertension type: unspecified Qualified Code(s): I10 - Essential (primary) hypertension (6) Gastroparesis: Status: Acute (7) Diabetes mellitus type 1: Continue insulin. Would probably not continue glipizide, metformin if truly DM1. Status: Chronic Additional A&P Information Gastritis: Managed during recent admission. Continues on PPI twice daily. Recent left stump infection: Continues on Bactrim. Will stop Bactrim at this time due to acute kidney injury. Culture appears growing MRSA susceptible to tetracycline. Chronic anemia Attestations Medical Necessity Statement*: Admission of over 2 midnights can be needed for assessment management of suicidal ideation and attempt. 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
[2021-01-11 18:10] VITALS: BP 182/58; PULSE 103; O2SAT 98
[2021-01-11 19:40] VITALS: BP 189/99; PULSE 100; RESP 20; TEMP 36.4; O2SAT 100
--- NOTE | 2021-01-11 19:44 | XR_ITS ---
WS: [id number] Exam: XR lumbar spine 2-3V* [id number] Date/Time of Exam: 01/11/2021 7:50 PM Reason For Exam: back pain No fracture or dislocation. Disc spaces are preserved. Minimal spondylosis. Posterior elements are un remarkable. No scoliosis. Minimal DJD of the SI joints. XR/XR lumbar spine 2-3V* [id number] IMPRESSION: 1. Very minimal degenerative changes otherwise normal lumbar spine study.
[2021-01-11] MEDS: BuSPIRONE 10 mg Tablet 15 MG PO (20:33)
[2021-01-11] MEDS: carvedilol 12.5 mg Tablet PO (20:33)
[2021-01-11] MEDS: doxycycline 100 mg Tablet PO (20:33)
[2021-01-11] MEDS: pantoprazole DR 40 mg Tablet PO (20:33)
[2021-01-11] MEDS: gabapentin 100 mg Capsule PO (20:33)
[2021-01-11 21:40] LABS: Glucose Point of Care 157 mg/dL (70-110)
[2021-01-11] MEDS: insulin glargine 100 units/1 mL 5 UNIT SUBCUT (21:49)
[2021-01-12] VITALS (11 sets, daily range): BP systolic 74–224; BP diastolic 40–102; PULSE 76–104; RESP 17–20; TEMP 36.5–37.1; O2SAT 93–100; BMI 26.6
[2021-01-12] MEDS: enalaprilat 1.25 mg/mL Inj 0.625 MG IVP (00:27)
[2021-01-12] MEDS: ondansetron 2 mg/ML SDV 2 mL 4 MG IVP ×2 (05:44→16:00)
[2021-01-12] MEDS: TRAMadol 50 mg Tablet 25 MG PO (06:06)
--- NOTE | 2021-01-12 06:46 | PC.NURSE ---
Pt found on the floor the [place], the one on one sitter said that she was walking and when she got just outside her door she sat down on the floor. A few minutes later she stood up and took a few steps and fell over. Pt was found sitting on the floor just outside her room by nursing staff. She was assisted to a chair and assessed. Pt stated that she hit her stump on the left, it was bleeding. Vital signs taken and wound dressed. Pt was then assisted to the bed. Physician notified. called but no answer.
[2021-01-12] MEDS: sodium chloride 0.9% 250 ML IV (07:02)
[2021-01-12 07:21] LABS: Glucose Point of Care 164 mg/dL (70-110)
[2021-01-12] MEDS: cholestyramine powder 4 gm Pkt PO (08:22)
[2021-01-12] MEDS: doxycycline 100 mg Tablet PO ×2 (08:22→20:58)
[2021-01-12] MEDS: pantoprazole DR 40 mg Tablet PO ×2 (08:22→20:58)
[2021-01-12] MEDS: citalopram 20 mg Tablet PO (08:23)
[2021-01-12] MEDS: amlodipine 10 mg Tablet PO (08:23)
[2021-01-12] MEDS: dicyclomine 20 mg Tablet PO (08:23)
[2021-01-12] MEDS: BuSPIRONE 10 mg Tablet 15 MG PO ×2 (08:23→20:59)
[2021-01-12] MEDS: gabapentin 100 mg Capsule PO ×2 (08:23→21:10)
[2021-01-12] MEDS: carvedilol 12.5 mg Tablet PO ×2 (08:23→20:58)
--- NOTE | 2021-01-12 11:15 | PC.CHAP ---
Pastoral Care Encounter/Spiritual Assessment Type of Contact [x] Declined radio electronics officer visit [] Patient/Family/Request visit [] Outpatient visit [] Follow-up visit [] Physician referral [] Code/Alert [] Routine visit [] Staff referral [] Actively dying [] Patient sleeping [] Family support [] [] Out of room [] Palliative care [] [] Receiving care in room [] Pre-surgical visit [] Trauma [] Long length of stay [] ICU visit [] Other: Relational/Emotional Strength [] Patient feels connected with others/family/visitors/staff [] Distress [] Loneliness/isolation [] Abandonment Spirituality of Patient [] Person of Vanessa [] Attends Pentecostalism of their [place]essa [] Believes in Prayer [] Reads Bible or Mormon materials [] There are Spiritual issues to be addressed Matching Machine Operator Interventions [] Prayer [] Active listening [] Non-anxious presence [] Spiritual/emotional support [] Crisis/trauma care [] Spiritual counseling [] Bereavement support [] Provided bereavement packet [] Provided Bible/devotional materials [] Provided toy/stuffed animal, coloring book to patient or family member [] Provided Communion [] Anointing/[place] [] Salvation [] Completed spiritual assessment [] Other: Impact on Illness or Injury [] Angry [] Fearful [] Anxious [] Often cries [] Exhaustion [] Unable to work [] Unable to attend hindu [] Unable to walk/stand [] Unable to read [] Unable to drive [] Unable to eat/drink [] Unable to sleep [] Unable to be with family [] Patient intubated [] Other: Summary Declined radio electronics officer visit Time spent with patient mins
[2021-01-12 11:16] LABS: Basophils # 0.1 10^3/uL (0.0-0.1); Basophils % 0.6 %; Eosinophils # 0.1 10^3/uL (0.0-0.8); Eosinophils % 0.8 %; Hematocrit 34.3 % (37.0-47.0); Hemoglobin 10.7 g/dL (11.5-15.3); Lymphocytes # 1.2 10^3/uL (0.8-4.8); Lymphocytes % 14.7 %; Mean Corpuscular HGB Conc 31.2 g/dL (30.0-36.0); Mean Corpuscular Hemoglobin 27.6 pg (28.0-34.0); Mean Corpuscular Volume 88.4 fL (81-99); Mean Platelet Volume 8.4 fL (7.4-10.4); Monocytes # 0.6 10^3/uL (0.2-0.9); Monocytes % 7.6 %; Neutrophils # 6.06 10^3/uL (1.8-7.7); Neutrophils % 75.9 %; Nucleated Red Blood Cells % 0 %; Platelet Count 630 10^3/cmm (130-400); Red Blood Count 3.88 10^6/uL (4.1-5.3); Red Cell Distribution Width 13.5 % (12.1-15.1)
[2021-01-12 11:31] LABS: Glucose Point of Care 123 mg/dL (70-110)
[2021-01-12 11:34] LABS: Alanine Aminotransferase 13 U/L (0-33); Albumin Level 3.2 g/dL (3.5-5.2); Alkaline Phosphatase 108 IU/L (35-105); Anion Gap 16.6 (5-19); Aspartate Amino Transferase 16 U/L (0-32); Blood Urea Nitrogen 19 mg/dL (6-20); Calcium 8.4 mg/dL (8.5-10.5); Carbon Dioxide 24 mmol/L (22-29); Chloride 97 mmol/L (98-107); Glucose 136 mg/dL (65-115); Osmolality Calculated 282 mOsm/kg (285-295); Potassium 3.6 mmol/L (3.5-5.1); Sodium 134 mmol/L (136-145); Total Bilirubin 0.3 mg/dL (0.15-1.2); Total Protein 7.2 g/dL (6.6-8.7)
[2021-01-12 12:57] LABS: Creatine Phosphokinase 81 U/L (26-192)
--- NOTE | 2021-01-12 14:30 | PM.PN ---
Subjective Subjective: Interval history: Lower back pain, lower abdominal discomfort, otherwise denies any other complaints. Vitals/I&O/Wt Last Vital Signs Temp 98.7 F 01/12/21 11:21 Pulse 76 01/12/21 11:21 Resp 18 01/12/21 11:21 BP 111/63 01/12/21 11:21 Pulse Ox 95 01/12/21 11:21 01/11/21 01/12/21 01/12/21 22:59 06:59 14:59 Intake Total 1000 / 1000 360 / 1360 490 / 490 Output Total 950 / 950 Balance 1000 / 1000 -590 / 410 490 / 490 Weight last 48 hrs Weight 81.647 kg Physical Exam Const: COMMON NORMALS: no acute distress and patient oriented x3 EXAM LIMITATIONS: behavioral limitations GENERAL APPEARANCE: cooperative and disheveled OTHER: Resting. Mood depressed. HENMT: COMMON NORMALS: oropharynx normal Neck/C-Spine: COMMON NORMALS: no JVD Resp: COMMON NORMALS: normal respiratory effort and clear to auscultation bilaterally AUSCULTATION: clear to auscultation bilaterally Cardio: COMMON NORMALS: no JVD, regular rhythm, S1 normal heart sound present, S2 normal heart sound present and No murmurs present (Cardio) RHYTHM: regular rhythm HEART SOUNDS: S1 normal heart sound present and S2 normal heart sound present GI: COMMON NORMALS: Normal to inspection, nondistended, normoactive bowel sounds present, Soft to palpation and non-tender PALPATION: Yes Soft to palpation Extremity: COMMON NORMALS: no joint enlargement and no pedal edema OTHER: Left BKA. Right foot toe amputations. Neuro: COMMON NORMALS: patient oriented x3 and moves all extremities Skin: COMMON NORMALS: no rashes or lesions noted GENERAL SKIN EXAM: no rashes or lesions noted LESIONS: other (Excoriations on forearms and wrists. Excoriations on right foot/ankle. ) OTHER: Wound L BKA - ulceration w minimal necrosis, no sign surrounding erythema. No tunn or underm Data : 01/12/21 11:05 01/12/21 11:05 A&P Assessment and plan (1) Suicide attempt: PatientAttempt at hanging with electrical cord, attempted wrist/phlebotomy. Discussed with psychiatry will be transferring for additional care at neuropsychiatric unit. Appears earlier she had sustained a fall with one-to-one sitter in the room, with concern that she had made herself on her bed. Yesterday one-to-one sitter had to actively hold her preventing her from hitting her head on the bed frame. Denies drug overdose. Monitor vitals, reassess laboratory studies in the morning. Status: Acute (2) Depression: As above. Status: Acute (3) FIONA (acute kidney injury): Improving. Continue to hold lisinopril, NSAIDs. Appears to overly distended urinary bladder on ultrasound imaging. Straight cath requested. Reviewing her medications will discontinue dicyclomine, reduce cyclobenzaprine dose, stop promethazine, in case causing some urinary retention. Straight cath, and straight cath as needed. Obtain UA. Urinary studies requested. Difficult to say exact etiology. Acute kidney injury on chronic kidney disease. Possibly secondary to Bactrim use to treat recent stump MRSA infection. Appears she also may be taking meloxicam at home. With hyaline casts noted in urine. Recently with nausea, poor oral intake, gastritis, gastroparesis. Possibly degree of dehydration with prerenal renal failure. At this time will discontinue Bactrim. DC NSAIDs. Hold lisinopril. Status: Acute (4) Low back pain: Mild degenerative changes on mild degenerative changes on x-ray L-spine. Lidocaine patch. Status: Acute (5) Hypertension: Continue antihypertensives except lisinopril. Monitor blood pressures. Status: Chronic Qualifiers: Hypertension type: unspecified Qualified Code(s): I10 - Essential (primary) hypertension (6) Gastroparesis: Status: Acute (7) Diabetes mellitus type 1: Continue insulin. Would probably not continue glipizide, metformin if truly DM1. Status: Chronic Additional A&P Information Gastritis: Managed during recent admission. Continues on PPI twice daily. Recent left stump infection: Doxycycline. Will stop Bactrim at this time due to acute kidney injury. Culture appears growing MRSA susceptible to tetracycline. Shala Canseco Blue, daily for left stump ulceration. Chronic anemia Attestations Medical Necessity Statement*: Continue admission for assessment and management of suicidal ideation, worsening depression, additional assessment and treatment on neuropsychiatric unit, continued monitoring of recovery of renal function. 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 Code Acute Heel Seat Fitter for [facility] Fwd Exam Comprehensive Diagnoses Suicide attempt T14.91XA Depression F32.9 FIONA (acute kidney injury) N17.9 Low back pain M54.5 Hypertension I10 Hypertension type: unspecified Gastroparesis K31.84 Diabetes mellitus type 1 E10.9
[2021-01-12 15:10] LABS: Bilirubin Urine Neg (Negative); Blood Urine Neg (Negative); Glucose Urine UA Trace (Normal); Ketones Urine 1+ (Negative); Leukocyte Esterase Urine Negative (Negative); Nitrate Urine Negative (Negative); Urine Appearance Clear (CLEAR); Urine Color Yellow (Yellow); Urobilinogen Urine Norm (Negative); pH Urine 6.5 (5-7)
[2021-01-12 15:11] LABS: Add Urine Culture? No; Add Urine Microscopic? YES; Bacteria Urine TRACE /hpf; Protein Urine 2+ (Negative); RBC Urine 0-4 /hpf (0-2); Squamous Epithelial Cell Urine 0-4 /hpf (0-5)
[2021-01-12] MEDS: lidocaine 5% Patch 1 PATCH TOPICAL ×2 (15:12→21:02)
[2021-01-12] MEDS: collagenase oint 30 gm 1 APPLIC TOPICAL ×2 (15:12→22:41)
--- NOTE | 2021-01-12 16:44 | PC.NURSE ---
Report I called report to marci WOOD in NPU. Pt was taken down in wheelchair.
[2021-01-12 17:23] LABS: Glucose Point of Care 120 mg/dL (70-110)
--- NOTE | 2021-01-12 19:44 | US_ITS ---
WS: [id number] RENAL ULTRASOUND HISTORY: adriana COMPARISON: None available. TECHNIQUE: 2-D and color Doppler imaging of the kidney submitted. Right kidney: 11.6 cm x 5.9 cm x 5.4 cm. Normal echogenicity with no hydronephrosis or mass. Left kidney: 9.5 cm x 6.6 cm x 6.3 cm. Normal echogenicity with no hydronephrosis or mass. Aorta: Normal. Urinary Bladder: [place] distended urinary bladder. Patient is unable to void. US/US renal BI* [id number] IMPRESSION: Normal renal ultrasound. [place] distended urinary bladder.
[2021-01-12 20:11] LABS: Glucose Point of Care 214 mg/dL (70-110)
[2021-01-12] MEDS: cyclobenzaprine 10 mg Tablet PO (20:59)
[2021-01-12] MEDS: insulin glargine 100 units/1 mL 5 UNIT SUBCUT (21:06)
[2021-01-12] MEDS: OLANZapine 5 mg ODT PO (22:34)
[2021-01-12] MEDS: trazodone 50 mg Tablet PO (22:46)
[2021-01-12] MEDS: ziprasidone 20 mg/mL SDV IM (23:30)
[2021-01-13] MEDS: water for injection-sterile 10 ML (00:37)
--- NOTE | 2021-01-13 01:53 | PC.NURSE ---
Addendum entered by Shirley Costa RN 01/14/21 01:59: THIS PT BEHAVIOR WAS DOCUMENTED LATER THAN EVENT, BEHAVIOR NOTED AT 2340 01/13/21 Original Note: bEHAVIOR PT HAS BEGAN TO BANG HER HEAD ON THE NURSES STATION, SHE STATES SHE IS IN PAIN, MANY MEDICATIONS HAVE BEEN ADMINISTERED, WOUND ATTENDED TO, URINE COLLECTED, 1:1 AT SIDE, PT IS WANDERING HALLS, REFUSES TO COMPLY WITH REQUESTS, AND BECOMES TEARFUL, GETS LOUD, AND IS HAVING A FULL BLOWN MELT DOWN, PT IS MED SEEKING. 1:1 SITTERGILDA, DID PLACE HAND IN FRONT OF COUNTER TO AVOID PT HITTING HER HEAD ON THE EDGE OF COUNTER TO OBTAIN ATTENTION, CONTINUALLY DEMANDING MEDICATION. PT IS UPSET WITH STAFF BECAUSE SHE WANTS TO LEAVE THE UNIT, TAKE A SHOWER IN CSU AT 0100. STAFF DECLINED REQUEST D/T STAFFING ON UNIT AND TIME OF DAY. PT HAS ALREADY HAD A SHOWER THIS AFTERNOON. SHE IS INTRUSIVE AND NOT ABLE TO BE REDIRECTED.
--- NOTE | 2021-01-13 03:05 | PC.NURSE ---
PRN late entry 2058 administered Flexeril 10mg for pt c/o muscle spasms. will continue to monitor pt until end of shift. 2129 reassessed pt, pt still complaining of back spasms, suggested that she lay down and rest. 4 administered Zyprexa Zydis 5mg for agitation and anxiety, pt is climbing out of bed and crawling in the floor. will continue to monitor pt until end of shift. Doctor has ordered a 1to1 sitter for this pt 2306 pt has calmed down a little, staying on other mattress in floor, will continue to monitor until end of shift. 2246 administered trazodone 50mg for a sleep aid, will continue to monitor until end of shift. 2332 pt still awake and trying to crawl in the floor, suggested that she lay in bed and give the medications time to work, will continue to monitor
--- NOTE | 2021-01-13 03:16 | PC.NURSE ---
PM Assessment 40/F DENIES SI/HI, DENIES AH/VH, STATES HER PAIN IS UNCONTROLLED AT A RATE OF 10 ON 1-10 PAIN SCALE. PT HAS EXPERIENCED AN AMPUTATION FOR HER RIGHT SIDED AMPUTATION OF HER FOREFOOT AND LEFT SIDED BELOW THE KNEE, AMPUTATION. PT HAS AN ACUTE KIDNEY INJURY, SUFFERS FROM BACK PAIN, AND HAS DEVELOPED A TOLERANCE FOR PAIN MEDICATIONS A RESULT. PT HAS REQUESTED SEVERAL PRN MEDICATIONS FROM NURSES THIS EVENING, AND RECEIVED FLEXERIL, TRAZODONE, ZYPREXA ZYDIS, AND WANTED ATIVAN. pT BEGAN TO CRAWL OUT OF BED, ACROSS THE FLOOR, REFUSING TO USE THE WHEELCHAIR. pT HAS REMOVED HER BANDAGES FROM HER AMPUTATED LIMB TWICE. CONTACTED THE PHYSICIAN REGARDING PT UNSAFE, UN-REDIRECTABLE BEHAVIORS, AND INCREASING AGITATION LEVEL. DR WALL ORDERED,A 1 ON 1 SITTER TO REDIRECT HER EFFORTS, ONCE THIS FAILED, HECTOR ORDERED A 20MG IM GEODON INJECTION BID PRN FOR AGITATION. NURSE ADMINISTERED THIS DOSE, PT REFUSED TO CONDUCT HERSELF IN A SAFE MANNER, SHE ATTEMPTED TO GET UP, WALK WITHOUT ASSISTANCE ALMOST FALLING MORE THAN ONCE. UNCRATER WITNESSED BEHAVIOR, SHE STATED, sHE HAS WORKED WITH THIS PATIENT, SUGGESTING WE LAY A MATTRESS ON THE FLOOR NEAR HER BED IN CASE SHE FELL OR ATTEMPTED TO CLIMB OUT AGAIN. THIS CONTINUED UNTIL NEARLY 0300. (THIS WAS NEARLY 4.5 HRS AFTER RECEIVING THIS DOSE). pT IS RESTING AT THIS TIME, A 1:1 SITTER IS NEAR PT, AND STAFF WILL CONTINUE TO OBSERVE PT BEHAVIOR/CONDITION THROUGHOUT THE SHIFT.
[2021-01-13 06:00] VITALS: RESP 15
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
[2021-01-13 06:38] LABS: Glucose Point of Care 158 mg/dL (70-110)
[2021-01-13 06:44] LABS: Basophils % 0.5 %; Eosinophils % 0.4 %; Hematocrit 38.7 % (37.0-47.0); Mean Corpuscular Hemoglobin 28.1 pg (28.0-34.0); Mean Corpuscular Volume 90.6 fL (81-99); Mean Platelet Volume 8.3 fL (7.4-10.4); Monocytes # 0.3 10^3/uL (0.2-0.9); Monocytes % 3.4 %; Neutrophils # 6.92 10^3/uL (1.8-7.7); Nucleated Red Blood Cells % 0 %; Platelet Count 561 10^3/cmm (130-400); Red Blood Count 4.27 10^6/uL (4.1-5.3); Red Cell Distribution Width 13.4 % (12.1-15.1); White Blood Count 8.3 10^3/uL (4.0-10.0)
[2021-01-13 07:02] LABS: Alanine Aminotransferase 12 U/L (0-33); Albumin Level 3.4 g/dL (3.5-5.2); Alkaline Phosphatase 118 IU/L (35-105); Anion Gap 17.5 (5-19); Aspartate Amino Transferase 11 U/L (0-32); Blood Urea Nitrogen 24 mg/dL (6-20); Calcium 8.8 mg/dL (8.5-10.5); Carbon Dioxide 24 mmol/L (22-29); Chloride 95 mmol/L (98-107); Globulin 3.8 g/dL (1.3-4.6); Glomerular Filtration Rate 30.9 mL/min (90-130); Glucose 157 mg/dL (65-115); Osmolality Calculated 283 mOsm/kg (285-295); Potassium 3.5 mmol/L (3.5-5.1); Sodium 133 mmol/L (136-145); Total Bilirubin 0.2 mg/dL (0.15-1.2); Total Protein 7.2 g/dL (6.6-8.7)
--- NOTE | 2021-01-13 10:20 | PC.NURSE ---
all scheduled 0900 meds held d/t level of sedation. pt did not wake up to even eat breakfast, she is 1:1 with sitter
[2021-01-13 12:47] LABS: Glucose Point of Care 115 mg/dL (70-110)
--- NOTE | 2021-01-13 13:10 | PC.NURSE ---
off unit to shower on CSU, accompanied by sitter
[2021-01-13 13:52] VITALS: BP 93/61; PULSE 110; RESP 16; TEMP 37.6; O2SAT 95
--- NOTE | 2021-01-13 15:55 | PC.NURSE ---
bladder scan 430 ml, pt asked if she could try to use the restroom. pt did void in the restroom, witnessed by 1:1 sitter.
[2021-01-13] MEDS: ibuprofen 600 mg Tablet PO (16:25)
[2021-01-13 16:30] LABS: Glucose Point of Care 125 mg/dL (70-110)
--- NOTE | 2021-01-13 20:10 | PC.NURSE ---
PM ASSESSMENT PT IS RESTING AT THIS TIME, PT HAS 1:1 SITTING AT BEDSIDE, HEART/LUNG SOUNDS ARE WNL, PT IS NOT EXPERIENCING PAIN AT THIS TIME, NO AH/VH, DENIES SI/HI AT THIS TIME. BLOOD SUGAR TESTING AND FUTURE OBSERVATION BY NURSING WILL BE COMPLETED UPON WAKING,.WOUND CHANGE SCHEDULED FOR HER THIS EVENING WELL.
[2021-01-13 21:15] VITALS: BP 97/65; PULSE 109; RESP 16; TEMP 37.1; O2SAT 96
[2021-01-13] MEDS: pantoprazole DR 40 mg Tablet PO (21:47)
[2021-01-13] MEDS: trazodone 50 mg Tablet PO (21:48)
[2021-01-13] MEDS: duloxetine 20 mg Capsule PO (21:48)
[2021-01-13] MEDS: BuSPIRONE 10 mg Tablet 15 MG PO (21:48)
[2021-01-13] MEDS: gabapentin 100 mg Capsule PO (21:48)
[2021-01-13] MEDS: doxycycline 100 mg Tablet PO (21:49)
[2021-01-13] MEDS: cyclobenzaprine 10 mg Tablet PO (21:49)
[2021-01-13] MEDS: collagenase oint 30 gm 1 APPLIC TOPICAL (21:50)
[2021-01-13] MEDS: insulin glargine 100 units/1 mL 5 UNIT SUBCUT (21:54)
[2021-01-13] MEDS: ondansetron 4 MG Tablet PO (21:54)
--- NOTE | 2021-01-13 22:05 | P.PN_ITS ---
Subjective Subjective: Interval history: Lower back pain felt better after the shower. Minimal response to lidocaine patch. Still some lower abdominal discomfort, although says did not urinate since the morning to the afternoon. Vitals/I&O/Wt Last Vital Signs Temp 99.6 F 01/13/21 13:52 Pulse 110 H 01/13/21 13:52 Resp 16 01/13/21 13:52 BP 93/61 01/13/21 13:52 Pulse Ox 95 01/13/21 13:52 01/13/21 01/13/21 01/13/21 06:59 14:59 22:59 Intake Total 10 500 Balance 10 175 Weight last 48 hrs Weight 81.647 kg Physical Exam Const: COMMON NORMALS: no acute distress and patient oriented x3 EXAM LIMITATIONS: behavioral limitations GENERAL APPEARANCE: cooperative and disheveled OTHER: Resting. Mood depressed. HENMT: COMMON NORMALS: oropharynx normal Neck/C-Spine: COMMON NORMALS: no JVD Resp: COMMON NORMALS: normal respiratory effort and clear to auscultation bilaterally AUSCULTATION: clear to auscultation bilaterally Cardio: COMMON NORMALS: no JVD, regular rhythm, S1 normal heart sound present, S2 normal heart sound present and No murmurs present (Cardio) RHYTHM: regular rhythm HEART SOUNDS: S1 normal heart sound present and S2 normal heart sound present GI: COMMON NORMALS: Normal to inspection, nondistended, normoactive bowel sounds present, Soft to palpation and non-tender PALPATION: Yes Soft to palpation Extremity: COMMON NORMALS: no joint enlargement and no pedal edema OTHER: Left BKA. Right foot toe amputations. Neuro: COMMON NORMALS: patient oriented x3 and moves all extremities Skin: COMMON NORMALS: no rashes or lesions noted GENERAL SKIN EXAM: no rashes or lesions noted LESIONS: other (Excoriations on forearms and wrists. Excoriations on right foot/ankle. ) OTHER: Wound L BKA - ulceration w minimal necrosis, no sign surrounding erythema. No tunn or underm Data : 01/13/21 06:35 01/13/21 06:35 A&P Assessment and plan (1) Suicide attempt: Continue supervision care on neuropsychiatric unit. Denies drug overdose. Monitor vitals, reassess laboratory studies in the morning. Status: Acute (2) Depression: As above. Status: Acute (3) FIONA (acute kidney injury): Improving. Creatinine down to 1.8. Appears to have soft blood pressures late last night and early this morning. For now held amlodipine, carvedilol. Continue to hold lisinopril, NSAIDs. Reports lower abdominal discomfort, did not urinate since the morning to the afternoon. Discussed with nursing staff regarding ordered bladder scan and straight cath, however, I see it was witnessed urinating later in the afternoon. Continue to monitor for signs of retention, straight cath as needed. Disc ontinued dicyclomine, reduced cyclobenzaprine dose, stopped promethazine, in case causing some urinary retention. UA not suggestive of UTI. Acute kidney injury on chronic kidney disease. Possibly secondary to Bactrim. Appears she also may be taking meloxicam at home. Status: Acute (4) Low back pain: Mild degenerative changes on mild degenerative changes on x-ray L-spine. Chronic pain with an extreme number of prior CT scan studies. Lidocaine patch. Status: Acute (5) Hypertension: Continue antihypertensives except lisinopril. Monitor blood pressures. Status: Chronic Qualifiers: Hypertension type: unspecified Qualified Code(s): I10 - Essential (primary) hypertension (6) Gastroparesis: Status: Acute (7) Diabetes mellitus type 1: Continue insulin. Would probably not continue glipizide, metformin if truly DM1. Status: Chronic Additional A&P Information Gastritis: Managed during recent admission. Continues on PPI twice daily. Recent left stump infection: Doxycycline. Culture appears growing MRSA susceptible to tetracycline. Santyl, Hydrofera Blue, daily for left stump ulceration. Chronic anemia Attestations Medical Necessity Statement*: Continue admission for assessment management fo katelin suicidal attempt, acute kidney injury. 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
--- NOTE | 2021-01-13 22:53 | PC.NURSE ---
Both Wound appearance/dressing Changed wound dressing on Left Lower Extremity. pressure injury present, round, edges well defined, new tunneling noted at approximately 9 oclock when facing pt, size in circumference is marginally smaller than the size of a quarter, depth is approximately 2cm deep, tunneling not measured. Cleaned with normal saline, dried with sterile guaze, applied Santyl ointment to hydroferra blue, covered with optifoam. Tolerated well Changed wound dressing on Right 3rd Toe on Right Extremity. pressure injury present, scabbed over, no new tunneling noted. Odor is strong.Cleaned with normal saline, dried with sterile guaze, applied Santyl ointment to hydroferra blue, covered with optifoam. Tolerated well.
[2021-01-13 22:55] LABS: Glucose Point of Care 109 mg/dL (70-110)
[2021-01-13 23:05] LABS: Add Urine Microscopic? YES; Bilirubin Urine 1+ (Negative); Blood Urine Neg (Negative); Glucose Urine UA Norm (Normal); Ketones Urine 1+ (Negative); Leukocyte Esterase Urine Trace (Negative); Nitrate Urine Negative (Negative); Protein Urine 3+ (Negative); Specific Gravity, Urine 1.025 (1.005-1.030); Urine Appearance Hazy (CLEAR); Urine Color Yellow (Yellow); Urobilinogen Urine 1 mg/dL (Negative); pH Urine 5 (5-7)
[2021-01-13 23:06] LABS: Add Urine Culture? No; Bacteria Urine 4+ /hpf; RBC Urine 0-4 /hpf (0-2); WBC Urine 40-55 /hpf (0-5)
[2021-01-13 23:31] LABS: Amphetamines Screen Urine Negative (Negative); Barbiturates Screen Urine Negative (Negative); Benzodiazepines Screen Urine Positive (Negative); Cocaine Screen Urine Negative (Negative); Opiate Screen Urine Positive (Negative); PCP Screen Urine Negative (Negative); THC Screen Urine Negative (Negative)
[2021-01-13] MEDS: lidocaine 5% Patch 1 PATCH TOPICAL (23:45)
[2021-01-14] MEDS: ibuprofen 600 mg Tablet PO (00:31)
--- NOTE | 2021-01-14 01:53 | PC.NURSE ---
around 2345 patient was up at the nurse's station window and started banging her head on the nurse station. Patient continued to try and bang her head on the nurse's station. Staff placed hand on edge of nurses station to avoid patient hitting head on the edge. Patient sat in middle of hallway and would not move and continued stating that she needs the nurse and needs a shower right now. Staff reminded patient several times that nurse has already told her that we currently do not have the staffing for patient to leave the unit and shower.
[2021-01-14 02:24] LABS: Albumin Level 3.7 g/dL (3.5-5.2); Alkaline Phosphatase 127 IU/L (35-105); Blood Urea Nitrogen 30 mg/dL (6-20); Calcium 9.3 mg/dL (8.5-10.5); Carbon Dioxide 18 mmol/L (22-29); Chloride 96 mmol/L (98-107); Globulin 3.9 g/dL (1.3-4.6); Glomerular Filtration Rate 25.8 mL/min (90-130); Glucose 156 mg/dL (65-115); Osmolality Calculated 287 mOsm/kg (285-295); Sodium 134 mmol/L (136-145); Total Bilirubin 0.4 mg/dL (0.15-1.2); Total Protein 7.6 g/dL (6.6-8.7)
[2021-01-14 02:25] LABS: Alanine Aminotransferase 13 U/L (0-33); Anion Gap 24.3 (5-19); Aspartate Amino Transferase 18 U/L (0-32); Potassium 4.3 mmol/L (3.5-5.1)
--- NOTE | 2021-01-14 02:33 | PC.NURSE ---
90ML URINE OUTPUT FROM 1900 TO 0233 THIS MORNING. BLOOD DRAW UNSUCCESSFUL, PT IS DRINKING, SHE IS VOMITING, WITH FINGER IN THROAT, AND IS STATING SHE IS IN PAIN THAT IS UNCONTROLLED. PT APPEARS VERY DEHYDRATED, CALLING PHYSICIAN WITH PT UPDATE
--- NOTE | 2021-01-14 02:52 | PC.NURSE ---
HOSPITALIST CONTACTED [facility]SE[facility] REQUESTED CONSULT, PT IS DEHYDRATED, 90ML OUTPUT [id number] TO 0233, BLADDER SCANNED PT, 58 RESIDUAL NOTED. FIONA AND LAB RESULTS RELAYED TO [facility], SECURE MESSAGE SENT TO HOSPITALIST
--- NOTE | 2021-01-14 02:53 | PC.NURSE ---
blood draw refusal or inability to be drawn 0215 pt was unablte to sit still during blood draw, photo lab manager tried 2 times, pt very dehydrated and pt became agitated and refused blood draw at this time. Charge note notified, notified Dr of pt's condition, waiting on Hospitalist at this time.
--- NOTE | 2021-01-14 03:34 | PC.NURSE ---
transfer pt to [facility] per hospitalist consult per dr steele, pt needs IV fluids, pain mgmt, and overall care. Examined wounds and will be obtaining wound care, bone exposed, and additional testing, casting house laborer contacted, dr leonard notified
[2021-01-14] MEDS: ziprasidone 20 mg/mL SDV IM ×2 (03:35→13:52)
[2021-01-14] MEDS: water for injection-sterile 10 ML (03:36)
--- NOTE | 2021-01-14 03:44 | PC.NURSE ---
pt behaviors 0344 pt banging head on foot board of bed, pt states that she is just in pain, pt has received all pain meds allowed, will continue to monitor this pt. Pt is being transfered to MED SURG for further medical treatment. 0230 witnessed pt banging head on foot board of bed, redirected to sit on bed and drink fluids, pt breathing heavily and stated that she was in pain, has been given pain meds along with trazodone for sleep, pt refuses to lay down so that the meds can take affect.
--- NOTE | 2021-01-14 03:48 | P.PN_ITS ---
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
--- NOTE | 2021-01-14 03:49 | PC.NURSE ---
updated pt Patient updated on current status of health and impending transfer, attempted to intervene while pt was hitting herself in the head with her palm, bumping it against the foot railing, and failing to verbally respond to the aircraft structure mechanic in the room. Room assignment 261 on med surge, SAND MOLDER will accompany pt to floor.
--- NOTE | 2021-01-14 03:51 | PC.NURSE ---
Geodon administration 0335 Administered 20mg IM of Geodon for refusal to comply, pt is being monitored with a 08/19 sitter. Several times pt has slid out of bed and tried crawling around in the floor, strange behaviors.
--- NOTE | 2021-01-14 03:52 | PM.CONSULT ---
Providers/Reason For Consult Consulting Physician/Specialty*: Hospitalist service Reason for Consult*: FIONA, acute kidney injury, dehydration Attending Physician: Mele Friedman History of Present Illness History of Present Illness Cherrie Solomon is a 40 year old female who was admitted for management of gastroparesis, FIONA, suicidal attempt, was transferred to neuropsychiatric unit yesterday, hospitalist service was consulted because of her oliguric state, intractable nausea vomiting, dehydration and management of pain. Since her transfer to neuropsychiatric unit she only voided urine once which was about 50 to 60 mL, patient has been extremely dry, as per the neuropsychiatric nursing staff she has been self inducing emesis, she has not been able to drink much fluid because of her intractable nausea vomiting. She also detected drug-seeking behavior, her mood is very labile, her back pain is 10/10, she has been trying to make herself fall from the bed as well. She has soft systolic blood pressure 97 mmHg, she is tachycardic, afebrile, saturating well on room air, she was hunched over her bed and was complaining of associating back pain. Her back pain is chronic she is denying radiation of this pain towards her groin or knee. Review of Systems Const: Reports: body aches and fatigue Eyes: Denies: change in vision ENMT: Reports: dry mouth Card: Reports: lightheadedness Resp: Denies: dyspnea GI: Reports: abdominal pain, nausea and vomiting : Reports: oliguria; Denies: flank pain Musc: Reports: back pain; Denies: joint redness or muscle cramps Skin/Breast: Reports: lesions Neuro: Reports: frequent falls, behavioral changes and involuntary movements Psych: Reports: anxiety, depression, mood swings, panic attacks, irritability, difficulty concentrating and suicidal ideation Endo: Denies: polyuria Keith/Lymph: Denies: easy bruising All/Imm: Denies: urticaria Meds/Allergies Home Medications and Allergies Home Medications Medication Instructions Recorded Confirmed Last Taken Type insulin lispro See Rx Instructions .ROUTE .COMPLEX 12/13/20 01/11/21 12/21/20 History Lantus Solostar U-100 Insulin 5 unit SUBCUT BEDTIME 12/24/20 01/11/21 12/23/20 History cholestyramine (with sugar) 4 g PO BID #60 ea 12/31/20 01/11/21 Unknown Rx cyclobenzaprine 10 mg PO TID PRN #30 tab 12/31/20 01/11/21 Unknown Rx pantoprazole 40 mg PO BID #60 tab 12/31/20 01/11/21 Unknown Rx promethazine 25 mg PO Q6H PRN #30 tab 12/31/20 01/11/21 Unknown Rx clarithromycin 500 mg tablet 500 mg PO BID 14 Days #28 tab 01/06/21 01/11/21 Unknown Rx metronidazole 500 mg tablet 500 mg PO TID 14 Days #42 tab 01/06/21 01/11/21 Unknown Rx dicyclomine 20 mg PO TID #20 tab 01/07/21 01/11/21 Unknown Rx amlodipine 10 mg PO DAILY 01/09/21 01/11/21 Unknown History buspirone 15 mg PO BID 30 Days #60 tab 01/09/21 01/11/21 Unknown Rx carvedilol 12.5 mg PO BID 01/09/21 01/11/21 Unknown History citalopram 20 mg PO DAILY 30 Days tab 01/09/21 01/11/21 Unknown Rx cholestyramine-aspartame 1 ea PO BID 01/11/21 01/11/21 Unknown History [Prevalite] gabapentin 100 mg PO Q12H 01/11/21 01/11/21 Unknown History glipizide 5 mg PO DAILY 01/11/21 01/11/21 Unknown History lisinopril 10 mg PO DAILY 01/11/21 01/11/21 Unknown History meloxicam 15 mg PO DAILY #15 tab 01/11/21 01/11/21 Unknown Rx metformin 500 mg PO BID 01/11/21 01/11/21 Unknown History sulfamethoxazole-trimethoprim 1 tab PO DAILY 01/11/21 01/11/21 Unknown History Allergies Allergy/AdvReac Type Severity Reaction Status Date / Time morphine Allergy ALGY-Difficulty Verified 01/08/21 21:30 Breathing Current Medications Current Medications Generic Name Dose Route Start Last Admin Trade Name Freq PRN Reason Stop Dose Admin Amlodipine Besylate 10 mg 01/12/21 09:00 01/13/21 10:19 Amlodipine 10 Mg Tablet PO Not Given DAILY [facility] Buspirone HCl 15 mg 01/12/21 21:00 01/13/21 21:48 Buspirone 10 Mg Tablet PO 15 mg 0900,2100 [facility] Administration Carvedilol 12.5 mg 01/12/21 21:00 01/13/21 10:19 Carvedilol 12.5 Mg Tablet PO Not Given [facility] Cholestyramine Resin 4 gm 01/12/21 21:00 01/14/21 03:21 Cholestyramine Powder 4 Gm Pkt PO Not Given [facility] Citalopram Hydrobromide 20 mg 01/12/21 09:00 01/13/21 10:20 Citalopram 20 Mg Tablet PO Not Given DAILY [facility] Collagenase 1 applic 01/12/21 22:20 01/13/21 21:50 Collagenase Oint 30 Gm TOPICAL 1 applic DAILY [facility] Administration Cyclobenzaprine HCl 10 mg 01/11/21 19:44 01/13/21 21:49 Cyclobenzaprine 10 Mg Tablet PO 10 mg TID PRN Administration Muscle Spasms Doxycycline Monohydrate 100 mg 01/12/21 21:00 01/13/21 21:49 Doxycycline 100 Mg Tablet PO 100 mg [facility] Administration Protocol Duloxetine HCl 20 mg 01/13/21 21:00 01/13/21 21:48 Duloxetine 20 Mg Capsule PO 20 mg 899,2099 [facility] Administration Gabapentin 100 mg 01/12/21 21:00 01/13/21 21:48 Gabapentin 100 Mg Capsule PO 100 mg 899,2099 [facility] Administration Ibuprofen 600 mg 01/12/21 21:33 01/14/21 00:31 Ibuprofen 600 Mg Tablet PO 600 mg Q6H PRN Administration MODERATE PAIN Insulin Aspart 0 unit 01/11/21 19:44 01/14/21 03:21 Insulin Aspart 100 Unit/1 Ml SUBCUT Not Given WM&BEDTIME [facility] Protocol Insulin Glargine 5 unit 01/11/21 21:00 01/13/21 21:54 Insulin Glargine 100 Units/1 Ml SUBCUT 5 unit BEDTIME [facility] Administration Lidocaine 1 patch 01/12/21 12:00 01/13/21 23:45 Lidocaine 5% Patch TOPICAL 1 patch [id number] [facility] Administration Olanzapine 5 mg 01/12/21 21:33 01/12/21 22:34 Olanzapine 5 Mg Odt PO 5 mg Q4H PRN Administration Agitation/Psychosis Ondansetron HCl 4 mg 01/12/21 21:33 01/13/21 21:54 Ondansetron 4 Mg Tablet PO 4 mg Q6H PRN Administration NAUSEA AND VOMITING Pantoprazole Sodium 40 mg 01/12/21 21:00 01/13/21 21:[address] 40 Mg Tablet PO 40 mg 0900,2100 [facility] Administration Ziprasidone 20 mg 01/13/21 09:00 01/14/21 03:35 Ziprasidone 20 Mg/Ml Sdv IM 20 mg BID PRN Administration AGITATION PFSH Acute PFSH: Medical History Acute kidney injury Back pain CKD (chronic kidney disease) stage 2, GFR 60-89 ml/min baseline Cr is around 1.0 Coronary artery disease hx of stenting Diabetes mellitus type 1 diagnosed age 15, history of peripheral neuropathy, gastroparesis and nephropathy Diabetic foot ulcer s/p surgical intervention and eventual amputation Diabetic gastroparesis Diabetic ophthalmopathy DKA (diabetic ketoacidoses) Foot osteomyelitis, right Hyperlipidemia Hypertension Nausea & vomiting Non-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 Suicidal ideation Surgical History Below-knee amputation of left lower extremity H/O esophagogastroduodenoscopy (12/31/20) Bile reflux gastritis, grade B esophagitis H/O exploratory laparotomy x 3 History of amputation of right forefoot Hx of cholecystectomy Previous section x 3 S/P coronary artery stent placement x 1 S/P percutaneous endoscopic gastrostomy (PEG) tube placement Family History Unknown Diabetes extensive, type II Other CHF (congestive heart failure) Social History Smoking and tobacco status: former smoker Quit status (tobacco): has quit using tobacco Former quit date comment: 15 yrs ago Alcohol intake: former Former alcohol use details: 15 yrs ago Household members: spouse Marital status: Sexually active: Yes (1, ) Female Reproductive History: Date of last menstrual period: 12/17/20 Vitals/I&O/Wt Last Vital Signs Temp 98.8 F 01/13/21 21:15 Pulse 109 H 01/13/21 21:15 Resp 16 01/13/21 21:15 BP 97/65 01/13/21 21:15 Pulse Ox 96 01/13/21 21:15 01/13/21 01/13/21 01/14/21 14:59 22:59 06:59 Intake Total Balance Weight last 48 hrs Weight 81.647 kg Physical Exam Narrative: EXAM NARRATIVE: Middle-age female who appears more than stated age Edentulous, dehydrated Seems to be in severe distress because of her back pain Clinically looks very dehydrated Dry mucous membranes Emaciated with malnourishment Sunken eyes, cheeks S1, S2 sinus tachycardia Abdomen without guarding or rigidity however tenderness in right lower quadrant Irritable mood, patient is showing nonpurposeful movements of her upper extremities, her both hands are clenched She is verbally redirectable, answers my questions appropriately Complaining of back pain, right lower lumbar area pain tender to tench and paraspinal area, she has left-sided lidocaine patch in left lumbar area A&P Assessment and plan (1) FIONA (acute kidney injury): Status: Acute (2) Gastroparesis: Status: Acute (3) Depression: Status: Acute (4) Suicide attempt: Status: Acute (5) Low back pain: Status: Acute (6) Dehydration: Status: Acute Additional A&P Information FIONA This seems secondary to dehydration, intractable nausea vomiting, recent use of Bactrim I will discontinue ibuprofen and gabapentin because of worsening creatinine She only voided 50 to 60 mL of urine in the last 12 hours, Decreased p.o. intake because of intractable nausea vomiting We will start IV fluids at 125 mill per hour, she is sinus tachycardic, will obtain EKG and lactic acid along serum ketones Continue doxycycline Hold antipsychotics because of worsening creatinine Gastroparesis History of type 1 diabetes Would use Zofran and Reglan on alternate basis, check QTc interval Recent CT abdomen did not show appendicitis, nonacute findings No signs of hydronephrosis I would not repeat CT abdomen at this point Lumbar pain Paraspinal muscle tenderness I did not see any abscess, she has healing rash on right lumbar area no active signs of cellulitis For intractable pain consider CT lumbar spine in the morning if her pain is not well controlled Open tunnel wound of left stump: Continue doxycycline no active purulent drainage, wound dressing covering exposed bone She also has exposed bone surface of right foot with some maceration around her toes Full liquid diet DVT prophylaxis: Heparin Full code Consult Attestations Medical Necessity Statement: Will need continued hospitalization because of dehydration, FIONA and gastroparesis and intractable lower back pain Time Spent in Patient Care: 30mins 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 Code Acute Needle Control Cheniller for g Fwd Diagnoses FIONA (acute kidney injury) N17.9 Gastroparesis K31.84 Depression F32.9 Suicide attempt T14.91XA Low back pain M54.5 Dehydration E86.0
[2021-01-14 05:09] VITALS: BP 92/61; PULSE 100; RESP 17; TEMP 36.4; O2SAT 98
[2021-01-14 05:18] LABS: Urine Creatinine 418 mg/dL (28-217); Urine Random Sodium 73 mmol/L
[2021-01-14] MEDS: sodium chloride 0.9% 1,000 ML 125 ML IV ×2 (05:40→18:07)
[2021-01-14 05:54] LABS: Lactate (Lactic Acid level) 1.2 mmol/L (0.5-2.2)
[2021-01-14] MEDS: OLANZapine 5 mg ODT PO (06:22)
[2021-01-14] MEDS: acetaminophen 325 mg Tablet 650 MG PO (06:22)
[2021-01-14 06:31] LABS: Glucose Point of Care 136 mg/dL (70-110)
[2021-01-14 07:04] LABS: Basophils # 0.1 10^3/uL (0.0-0.1); Basophils % 0.6 %; Eosinophils % 0.3 %; Hematocrit 35.3 % (37.0-47.0); Hemoglobin 11.3 g/dL (11.5-15.3); Lymphocytes # 1.9 10^3/uL (0.8-4.8); Lymphocytes % 22.1 %; Mean Corpuscular Volume 87.4 fL (81-99); Mean Platelet Volume 8.7 fL (7.4-10.4); Monocytes # 0.6 10^3/uL (0.2-0.9); Monocytes % 6.5 %; Neutrophils # 6.03 10^3/uL (1.8-7.7); Neutrophils % 69.9 %; Nucleated Red Blood Cells % 0 %; Platelet Count 586 10^3/cmm (130-400); Red Blood Count 4.04 10^6/uL (4.1-5.3); Red Cell Distribution Width 13.2 % (12.1-15.1); White Blood Count 8.6 10^3/uL (4.0-10.0)
[2021-01-14 07:24] LABS: Ketone (Acetest) Serum Negative (Negative)
--- NOTE | 2021-01-14 07:47 | PM.NPN ---
Subjective NPU Subjective: Interval history: Pt was screaming and only occasionally answering questions during evaluation. Trying to self-harm, being restrained by staff.She would not calm down to avoid the need for IM medication. Mental Status Exam MSE Comments: This is an overweight white female with no distress, grooming and eye contact. With notable below-knee amputation lying in bed with an active physical restraint going on. No abnormal movements except for psychomotor agitation. Mostly cooperative with exam in extreme distress. Speech was increased rate and volume. Mood described as depressed, affect congruent. Thought process organized. Thought content: Patient endorsed wanting due to the pain, there are no delusions reported or noted. Attention and concentration were intact and memory appeared reliable but none were formally tested. She is alert and oriented x3. Insight and judgment are impaired and impulse control. Impaired. Vitals/I&O/Wt Last Vital Signs Temp 97.5 F L 01/14/21 05:09 Pulse 100 01/14/21 05:09 Resp 17 01/14/21 05:09 BP 92/61 01/14/21 05:09 Pulse Ox 98 01/14/21 05:09 01/13/21 01/14/21 01/14/21 22:59 06:59 14:59 Intake Total 5 / 5 Balance 5 / 5 Weight last 48 hrs Weight 81.647 kg Data NPU : 01/15/21 06:48 01/15/21 06:48 A&P Additional A&P Information (1) Gastroparesis: (2) FIONA (acute kidney injury): (3) Depression: (4) Suicide attempt: (5) Low back pain: (6) Amputation stump pain: (7) Pain of amputation stump of left lower extremity: (8) History of financial difficulties: (9) Hypertension: (10) Diabetes mellitus type 1: (11) Diabetic gastroparesis: (12) PTSD (post-traumatic stress disorder): Additional A&P Information This is a 40-year-old white female with a long history of mental health, trauma, possible cluster B personality disorder and medical issues with frequent hospitalizations and emergency room visits who presents endorsing that her pain has become significant enough that she rather endorsing a suicide attempt without clear evidence. 1. Continue current medication. start geodon 20 mg IM bid prn. 2. continue 1-1. May use restraints if necessary to protect self directed aggression. 3. Return to NPU when medically cleared. Involuntary Hold Information 96 Hour Hold: 96 Hour Involuntary Admission: No Attestations NPU Medical Necessity Statement*: N/A. Please see primary team note for Medical necessity. However return to Inpatient psychiatric unit when medically cleared. 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
[2021-01-14 08:00] VITALS: BP 160/80; PULSE 118; RESP 18; TEMP 36.4; O2SAT 99
--- NOTE | 2021-01-14 08:00 | PC.NURSE ---
Nurse in room to give patient morning medications. Patient demanding that nurse call doctor so she can talk to the doctor over the phone. Nurse informed patient that doctor had given orders for patient to start gabapentin pack and he was adding pyridium to her medication list. Nurse educated patient on plan for the day which included bladder scanning and accurate measurement of urine output. Patient resistant to learning and repeatedly stating I can't handle the pain . I informed patient that everything she has been educated on was all doctor's orders for now and physician is aware that she is in pain.
[2021-01-14] MEDS: pantoprazole DR 40 mg Tablet PO ×2 (08:14→23:57)
[2021-01-14] MEDS: BuSPIRONE 10 mg Tablet 15 MG PO ×2 (08:14→23:57)
[2021-01-14] MEDS: carvedilol 12.5 mg Tablet PO ×2 (08:14→23:57)
[2021-01-14] MEDS: citalopram 20 mg Tablet PO (08:14)
[2021-01-14] MEDS: doxycycline 100 mg Tablet PO ×2 (08:14→23:57)
[2021-01-14] MEDS: gabapentin 100 mg Capsule PO ×3 (08:42→23:57)
--- NOTE | 2021-01-14 09:00 | PC.NURSE ---
It was reported to this nurse by Analisa WOOD that Patient ambulated to the bathroom stating she wanted to take a shower because she was in pain. Patient has been told that patient is not able to shower due to her open wounds with dressings to right foot and left leg amputation stump. Analisa reported that when she went back to patient room to educate patient on this patient had already gotten herself in the shower. Patient educated that this will be the only shower that she will be allowed for the day and there are other means for pain management she has available. Will continue to monitor.
--- NOTE | 2021-01-14 10:50 | PC.NURSE ---
This nurse rounded on patient and found patient resting in bed with even respirations. No signs of discomfort at this time.
[2021-01-14 11:03] LABS: Glucose Point of Care 148 mg/dL (70-110)
[2021-01-14 11:53] VITALS: BP 100/67; PULSE 79; RESP 17; TEMP 36.6; O2SAT 100
[2021-01-14] MEDS: phenazopyridine 100 mg Tablet PO ×2 (12:10→18:04)
--- NOTE | 2021-01-14 13:12 | PC.NURSE ---
Patient crawled to bathroom and was found sitting in the shower. Patient is unable to be redirected back to bed and repeatedly stating I need to take a shower I can't stand the pain . Patient began to hit herself in the head. Security called and patient was assisted back to bed. Dressings to left amputation stump and right toe applied. Patient reeducated that she cannot get into the shower due to these wounds and we could get her a heating pad to help with the pain in her side. Patient resistant to education and begins to hit herself in the head and claw her legs. Patient was prevented to continue to harm herself by nurse Analisa WOOD and security. Dr. Friedman called and orders to be placed in chart by him for a one time dose of gabapentin and a KPAD order.
--- NOTE | 2021-01-14 14:00 | PC.NURSE ---
PRN Geodon IM 20mg givenm to left deltoid Patient uncooperative and self harming by hitting herself, clawing herself, and pulling her hair.
--- NOTE | 2021-01-14 14:44 | PM.PN ---
Subjective Subjective: Interval history: This morning notified by nursing staff she has been noted recurrently disconnecting her IV, walking or even crawling to the bathroom and attempt to take multiple showers, staying in the shower for a long time, soaking her lower extremity wounds. Not cooperative with nursing staff. With attempts for redirection, hitting herself, scratching herself. During my visit nursing staff, one-to-one sitter, security are at her bedside. She has been redirected, sitting up in bed. Crying, holding her legs, weakly digging in her nails (trimmed). Discussing with her, she reports pain on the right lower quadrant, superficially. Reports pain on squeezing or pinching of skin fold. No pain in other parts of the abdomen. There is no superficial erythema. No swelling. No rash, wounds or ulceration. Abdominal fold somewhat deformed with healed past abdominal surgical scars, but not on the side of the reported symptoms. She requests something for pain. Discussed with her a number of options, although she seems to dismiss them including lidocaine patch stating they do not work . She is agreeable to try combination lidocaine patch on the abdominal wall, heat, and if not working possibly capsaicin or menthol cream if available. Psychiatry was also notified of this morning's events and were heading up to see her as well. Vitals/I&O/Wt Last Vital Signs Temp 97.9 F 01/14/21 11:53 Pulse 79 01/14/21 11:53 Resp 17 01/14/21 11:53 BP 100/67 01/14/21 11:53 Pulse Ox 100 01/14/21 11:53 01/13/21 01/14/21 01/14/21 22:59 06:59 14:59 Intake Total 240 / 240 Balance 240 / 240 Weight last 48 hrs Weight 81.647 kg Physical Exam Const: COMMON NORMALS: no acute distress and patient oriented x3 EXAM LIMITATIONS: behavioral limitations GENERAL APPEARANCE: cooperative and disheveled OTHER: Resting. Mood depressed. HENMT: COMMON NORMALS: oropharynx normal Neck/C-Spine: COMMON NORMALS: no JVD Resp: COMMON NORMALS: normal respiratory effort and clear to auscultation bilaterally AUSCULTATION: clear to auscultation bilaterally Cardio: COMMON NORMALS: no JVD, regular rhythm, S1 normal heart sound present, S2 normal heart sound present and No murmurs present (Cardio) RHYTHM: regular rhythm HEART SOUNDS: S1 normal heart sound present and S2 normal heart sound present GI: COMMON NORMALS: Normal to inspection, nondistended, normoactive bowel sounds present, Soft to palpation and non-tender PALPATION: Yes Soft to palpation Extremity: COMMON NORMALS: no joint enlargement and no pedal edema OTHER: Left BKA. Right foot toe amputations. Neuro: COMMON NORMALS: patient oriented x3 and moves all extremities Skin: COMMON NORMALS: no rashes or lesions noted GENERAL SKIN EXAM: no rashes or lesions noted LESIONS: other (Excoriations on forearms and wrists. Excoriations on right foot/ankle. ) OTHER: Wound L BKA - ulceration w minimal necrosis, no sign surrounding erythema. No tunn or underm Data : 01/14/21 05:30 01/14/21 01:51 A&P Assessment and plan (1) FIONA (acute kidney injury): Additional worsening of FIONA, creatinine up to 2.1. UA was collected, also appears contaminated sample with 10-15 squamous epithelial cells. Repeat UA requested. Urine sodium, creatinine have been collected, however. Appears to have possibly prerenal FIONA. She had been started on fluid challenge with IV fluid. However, has not been cooperative, disconnecting her IV, leaving her bed, continue to return and turn on the shower wanting to stay there after taking multiple showers. Previously with concern of possible urine retention, cyclobenzaprine, Phenergan were held. Hold donepezil. Requested bladder scan, only 75 mL noted. Unfortunately we cannot track urine output accurately. Bladder scans, straight caths requested. [place]jas catheter at the moment unlikely to be safe. Continue IV fluid challenge as tolerating, urine output monitoring as she will allow. Reassess renal function. No obstruction noted on ultrasonography. Continue to hold lisinopril, NSAIDs. Acute kidney injury on chronic kidney disease. Possibly secondary to Bactrim. Appears she also may be taking meloxicam at home. Status: Acute (2) Low back pain: Mild degenerative changes on mild degenerative changes on x-ray L-spine. Chronic pain with an extreme number of prior CT scan studies. Status: Acute (3) Gastroparesis: Status: Acute (4) Depression: As above. Status: Acute (5) Suicide attempt: Continue supervision care on neuropsychiatric unit. Denies drug overdose. Monitor vitals, reassess laboratory studies in the morning. Status: Acute (6) Diabetes mellitus type 1: Glucose appears well controlled. Continue insulin. Status: Chronic Additional A&P Information Behavioral disturbance: Does not appear to have signs of hallucination visual or auditory, but in addition to depression, recent suicidal attempt, he is also extremely uncooperative, with continued episodes of attempted self-harm, pulling out her hair, trying to hit her head on objects, scratching herself, requiring constant supervision by staff, redirection. Has good awareness of where she is and what is going on, however, despite requested to some continues to disconnect IV fluids, returning back to try to soak in the shower. Abdominal pain: Right lower quadrant discomfort, appears to be reporting pain with even light pressure or pain to of the abdominal skin fold. Does not appear to be related to internal abdominal component, with previously multiple abdominal CT scans without suspicious findings. At this time will relocate lidocaine patch to right lower quadrant, give additional gabapentin dose. Continue home dose gabapentin. Heating pad. Consider other additional measures depending on response. Gastritis: Managed during recent admission. Continues on PPI twice daily. Left stump ulceration with infection: With prior osteomyelitis. Doxycycline. Culture appears growing MRSA susceptible to tetracycline. Harleen, Olesyafera Blue, daily for left stump ulceration. Not cooperating with keeping the wound clean, dry, continues to soak it in the shower. This may benefit from additional reassessment, possibly with MRI if well tolerated after her psychiatric condition may allow, as currently she is having difficult time even allowing for just fluids to be given by IV. Not sure that she would tolerate MRI, certainly not currently. Was unable to tolerate in the past. Would require IV contrast. Will need to be done after mental status and renal function allow. Also wound on right foot with history of prior osteomyelitis. This again may benefit from additional evaluation once her mental state and renal function allow. Chronic anemia History of hypertension: With known labile blood pressures. Antihypertensives for now on hold to avoid hypotension. Attestations Medical Necessity Statement*: Continue admission for management of worsened acute kidney injury, IV fluid challenge, in the setting of behavioral disturbance, repeat attempts at self-harm, depression, suicidal attempt, and lady with gastroparesis, chronic abdominal pain, chronic back pain. 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 Code Acute Tow Truck Dispatcher for Kim Fwd Diagnoses FIONA (acute kidney injury) N17.9 Low back pain M54.5 Gastroparesis K31.84 Depression F32.9 Suicide attempt T14.91XA Diabetes mellitus type 1 E10.9
[2021-01-14 15:21] VITALS: BP 177/92; PULSE 95; RESP 17; TEMP 36.6; O2SAT 94
[2021-01-14 16:07] LABS: Blood Urine Trace (Negative); Glucose Urine UA Norm (Normal); Ketones Urine Negative (Negative); Nitrate Urine Negative (Negative); Protein Urine 3+ (Negative); Urine Appearance Hazy (CLEAR); Urine Color Yellow (Yellow); pH Urine 5 (5-7)
[2021-01-14 16:08] LABS: Add Urine Microscopic? YES; Bilirubin Urine Neg (Negative); Leukocyte Esterase Urine 2+ (Negative); RBC Urine RARE /hpf (0-2); Urobilinogen Urine Norm (Negative)
[2021-01-14 16:09] LABS: Add Urine Culture? Yes; Bacteria Urine 3+ /hpf; Squamous Epithelial Cell Urine 0-4 /hpf (0-5); WBC Urine 55-80 /hpf (0-5)
[2021-01-14 16:51] LABS: Glucose Point of Care 144 mg/dL (70-110)
[2021-01-14 20:00] VITALS: BP 145/79; PULSE 95; RESP 17; TEMP 37.5; O2SAT 94
[2021-01-14 20:42] LABS: Glucose Point of Care 101 mg/dL (70-110)
[2021-01-14 22:41] VITALS: BP 212/110; PULSE 92; RESP 20; TEMP 36.7; O2SAT 96
[2021-01-14] MEDS: metoclopramide 5 mg/mL SDV 2 mL IVP (23:10)
[2021-01-14] MEDS: hyDRALAzine 20 mg/mL INJ 1 mL 10 MG IVP (23:10)
[2021-01-14] MEDS: lidocaine 5% Patch 1 PATCH TOPICAL (23:55)
[2021-01-15] VITALS (7 sets, daily range): BP systolic 156–193; BP diastolic 82–101; PULSE 85–102; RESP 18–20; TEMP 36.6–36.9; O2SAT 95–98
[2021-01-15] MEDS: OLANZapine 5 mg ODT PO (00:06)
[2021-01-15] MEDS: sodium chloride 0.9% 1,000 ML 125 ML IV ×3 (02:17→23:50)
[2021-01-15] MEDS: ziprasidone 20 mg/mL SDV IM (04:36)
--- NOTE | 2021-01-15 05:13 | PC.NURSE ---
At approximately 2300 patient called nurse in to room and inquired about a shower. Patient was educated that a shower could not be taken at this time due to open wound on left leg and the need for it to remain dry. She stated that she needed one cause it helps with the pain. Again she was educated that a shower could not be taken. Around 2344 nurse was called into room by sitter because patient had begun to strike herself in the head with her fists stating that I can't take this pain PRN tylenol was offered which the patient declined patient did take PRN zyprexa that was offered. Patient was educated that she needed to stop striking herself or she would have to be placed in restraints. She stopped striking herself at this time and nurse left room. A few minutes later nurse was called back into room as the patient had resumed striking herself. Again patient was educated that she could not strike herself otherwise restraints would need to be used to keep her from hurting herself. Patient stopped striking herself at this time, again PRN tylenol was offered for pain management which patient refused, nurse left the room at this time. Again nurse was called in room by sitter as patient had begun striking herself again. Physician notified of current situation and orders for restraints given. Soft restraints were applied to bilateral wrists at 0015. Patient was monitored for need of continued use of soft restraints. While restrained patient would continue to attempt to strike herself by leaning down and striking her head with her fists at this time there was bruising to forehead noted. She was again educated about not striking herself. Slack in restraints were taken up. At 0230 patient appeared to be complacent with staff, patient was asked if she would refrain from attempting to harm herself. She was agreeable to this. Attempted to remove restraints at this time and nurse left room. at 0250 nurse was called back into room by sitter because patient and began to harm herself again. Patient was educated that restraints would need to be reapplied. Bilateral soft wrist restraints were applied at this time. Patient was monitored for continued need of restraints. Patient continued to attempt to self harm and begun to pinch her legs as well slam head into her restrained fists. Physician was contacted and made aware of current situation. Nurse was ordered to admin PRN Geodon which was given at 0436. Patient became cooperative with staff and ceased self harm attempts. Restraints were removed at 0445.
[2021-01-15 06:16] LABS: Glucose Point of Care 121 mg/dL (70-110)
[2021-01-15] MEDS: HYDROmorphone 1 mg/mL INJ 1 mL 0.4 MG IVP ×3 (07:19→23:18)
[2021-01-15 07:24] LABS: Basophils # 0.1 10^3/uL (0.0-0.1); Basophils % 0.5 %; Eosinophils % 0.2 %; Hematocrit 33.4 % (37.0-47.0); Hemoglobin 10.5 g/dL (11.5-15.3); Lymphocytes # 1.2 10^3/uL (0.8-4.8); Lymphocytes % 12.4 %; Mean Corpuscular HGB Conc 31.4 g/dL (30.0-36.0); Mean Corpuscular Hemoglobin 27.9 pg (28.0-34.0); Mean Corpuscular Volume 88.6 fL (81-99); Mean Platelet Volume 8.6 fL (7.4-10.4); Monocytes # 0.6 10^3/uL (0.2-0.9); Monocytes % 6.6 %; Neutrophils # 7.38 10^3/uL (1.8-7.7); Neutrophils % 79.9 %; Nucleated Red Blood Cells % 0 %; Platelet Count 500 10^3/cmm (130-400); Red Blood Count 3.77 10^6/uL (4.1-5.3); Red Cell Distribution Width 13.2 % (12.1-15.1); White Blood Count 9.3 10^3/uL (4.0-10.0)
[2021-01-15 07:42] LABS: Alanine Aminotransferase 11 U/L (0-33); Albumin Level 3.2 g/dL (3.5-5.2); Alkaline Phosphatase 110 IU/L (35-105); Aspartate Amino Transferase 14 U/L (0-32); Blood Urea Nitrogen 23 mg/dL (6-20); Calcium 8.6 mg/dL (8.5-10.5); Carbon Dioxide 19 mmol/L (22-29); Chloride 103 mmol/L (98-107); Creatinine Clr Calc Pharmacy 57.5467; Globulin 3.5 g/dL (1.3-4.6); Glomerular Filtration Rate 38.1 mL/min (90-130); Glucose 132 mg/dL (65-115); Osmolality Calculated 292 mOsm/kg (285-295); Sodium 138 mmol/L (136-145); Total Bilirubin 0.3 mg/dL (0.15-1.2); Total Protein 6.7 g/dL (6.6-8.7)
[2021-01-15 08:09] LABS: Anion Gap 19.3 (5-19); Potassium 3.3 mmol/L (3.5-5.1)
[2021-01-15] MEDS: doxycycline 100 mg Tablet PO ×2 (10:17→23:18)
[2021-01-15] MEDS: phenazopyridine 100 mg Tablet PO ×3 (10:17→16:52)
[2021-01-15] MEDS: pantoprazole DR 40 mg Tablet PO ×2 (10:17→23:19)
[2021-01-15] MEDS: carvedilol 12.5 mg Tablet PO ×2 (10:17→23:19)
[2021-01-15] MEDS: citalopram 20 mg Tablet PO (10:17)
[2021-01-15] MEDS: gabapentin 100 mg Capsule PO ×2 (10:17→23:18)
[2021-01-15] MEDS: cefdinir 300 MG CAPSULE PO ×2 (10:17→16:52)
[2021-01-15] MEDS: BuSPIRONE 10 mg Tablet 15 MG PO ×2 (10:18→23:18)
[2021-01-15] MEDS: lidocaine 5% Patch 1 PATCH TOPICAL (10:19)
[2021-01-15] MEDS: collagenase oint 30 gm 1 APPLIC TOPICAL (10:31)
[2021-01-15 10:58] LABS: Glucose Point of Care 141 mg/dL (70-110)
[2021-01-15] MEDS: acetaminophen 325 mg Tablet 650 MG PO (11:19)
--- NOTE | 2021-01-15 13:39 | PC.NURSE ---
patient complaining of nausea, flex o writer operator notified Dr Friedman. Per Dr Friedman, order Zofran 4mg Q6H PRN for nausea.
--- NOTE | 2021-01-15 14:57 | PM.NPN ---
Subjective NPU Subjective: Interval history: She presents today reporting that she feels better than yesterday but continues to report that the pain is not manageable and that if is not improved in some way she does not want to live anymore. She is not attending the pain clinic or getting significant pain follow-up because of her insurance situation she reports. We discussed trying to maximize her medication and seeing what options exist from the hospital to support her having appropriate follow-up regardless of her insurance status. Mental Status Exam MSE Comments: This is an overweight white female with limited dress, grooming and eye contact. With notable below-knee amputation on her left leg, standing at her bedside. No abnormal movements except for psychomotor retardation. Mostly cooperative with exam in no acute distress. Speech was normal rate and volume. Mood described as depressed, affect congruent. Thought process organized. Thought content: Patient endorsed wanting if the pain can be addressed, but denied homicidal ideation, there were no delusions reported or noted, there and she denied auditory or visual hallucinations. Attention and concentration were intact and memory appeared reliable but none were formally tested. She is alert and oriented x3. Insight and judgment are impaired and impulse control is Impaired. Vitals/I&O/Wt Last Vital Signs Temp 98.5 F 01/15/21 11:36 Pulse 95 01/15/21 11:36 Resp 18 01/15/21 11:36 BP 178/86 01/15/21 08:00 Pulse Ox 98 01/15/21 11:36 01/15/21 14:59 Intake Total 1355.833 / 1355.833 Balance 1355.833 / 1355.833 Weight last 48 hrs Weight 87.226 kg Data NPU : 01/16/21 07:16 01/16/21 07:16 A&P Additional A&P Information (1) Gastroparesis: (2) FIONA (acute kidney injury): (3) Depression: (4) Suicide attempt: (5) Low back pain: (6) Amputation stump pain: (7) Pain of amputation stump of left lower extremity: (8) History of financial difficulties: (9) Hypertension: (10) Diabetes mellitus type 1: (11) Diabetic gastroparesis: (12) PTSD (post-traumatic stress disorder): Additional A&P Information This is a 40-year-old white female with a long history of mental health, trauma, possible cluster B personality disorder and medical issues with frequent hospitalizations and emergency room visits who presents endorsing that her pain has become significant enough that she rather endorsing a suicide attempt without clear evidence. 1. Continue current medication. 2. continue 1-1. May use restraints if necessary to protect self directed aggression. 3. Return to NPU when medically cleared. Involuntary Hold Information 96 Hour Hold: 96 Hour Involuntary Admission: No Attestations NPU Medical Necessity Statement*: N/A. Please see primary team note for Medical necessity. However return to Inpatient psychiatric unit when medically cleared. 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 Code Acute Ammonium Nitrate Neutralizer for Kim Mitchell
--- NOTE | 2021-01-15 16:05 | XRR_ITS ---
PROCEDURE INFORMATION: Exam: XR Right Foot Exam date and time: 01/15/2021 4:06 PM Age: 40 years old Clinical indication: Pain; Toes; Right; Prior surgery; Additional info: Toe wound infection, HX om TECHNIQUE: Imaging protocol: XR Right foot. Views: 3 or more views. Total images: 3 COMPARISON: CR (LOW EXM, ) 12/31/2020 12:11 PM FINDINGS: Bones/joints: Previous amputation right hallux and 3rd digit. Osteopenia/osteoporosis. Mild primary osteoarthritis of the tarsals. No definite radiographically visible osteolytic destructive process. Soft tissues: Soft tissue swellings of the 2nd and 4th digits. Vasculature: Arteriosclerosis of diabetes mellitus. XR/XR foot RT min 3V* [id number] IMPRESSION: Nonacute.
--- NOTE | 2021-01-15 16:05 | XRR_ITS ---
PROCEDURE INFORMATION: Exam: XR Left Knee Exam date and time: 01/15/2021 4:54 PM Age: 40 years old Clinical indication: Pain; Knee; Left; Prior surgery; Surgery type: Lower leg; Additional info: XR stump - stump wound, HX om TECHNIQUE: Imaging protocol: XR Left knee. Views: 3 views. Total images: 3 COMPARISON: CR (LOW EXM, ) 01/08/2021 2:34 PM FINDINGS: Bones/joints: Below the knee amputation. Osteoporosis. No visible acute osseous abnormality radiographically period no visible joint effusion. Soft tissues: No visible soft tissue emphysema or radiopaque foreign body. Vasculature: Arteriosclerosis. XR/XR knee LT 3V* [id number] IMPRESSION: Nonacute.
--- NOTE | 2021-01-15 16:06 | PM.PN ---
Subjective Subjective: Interval history: Wounds on her lower extremities have been noted with drainage, foul-smelling on the right side. She request to go to the shower. Discussed with her soaking the wounds in the current condition is not a safe thing to do, and appears to be causing maceration. She is having some nausea today. On evaluation of the wounds, appears to have some undermining at the ulceration on her stump, wound of the right fourth toe with maceration, foul smell. Swelling of the toe. No erythema going proximally. Discussed with her we will need additional treatment, follow-up with wound care, as well as assessment of possibility of recurrence of osteomyelitis given prior history. She verbalized understanding and agreement. Discussed with her addition of Levaquin also due to UA findings compatible with possible UTI. Vitals/I&O/Wt Last Vital Signs Temp 98.5 F 01/15/21 11:36 Pulse 95 01/15/21 11:36 Resp 18 01/15/21 13:36 BP 178/86 01/15/21 08:00 Pulse Ox 95 01/15/21 13:36 01/15/21 01/15/21 01/15/21 06:59 14:59 22:59 Intake Total 1000 / 2800 1355.833 / 1355.833 Output Total 600 / 1550 Balance 400 / 1250 1355.833 / 1355.833 Weight last 48 hrs Weight 87.226 kg Physical Exam Const: COMMON NORMALS: no acute distress and patient oriented x3 EXAM LIMITATIONS: behavioral limitations GENERAL APPEARANCE: cooperative and disheveled OTHER: Sitting up. Today appears calmer. Redirectable. HENMT: COMMON NORMALS: oropharynx normal Neck/C-Spine: COMMON NORMALS: no JVD Resp: COMMON NORMALS: normal respiratory effort and clear to auscultation bilaterally AUSCULTATION: clear to auscultation bilaterally Cardio: COMMON NORMALS: no JVD, regular rhythm, S1 normal heart sound present, S2 normal heart sound present and No murmurs present (Cardio) RHYTHM: regular rhythm HEART SOUNDS: S1 normal heart sound present and S2 normal heart sound present GI: COMMON NORMALS: Normal to inspection, nondistended, normoactive bowel sounds present, Soft to palpation and non-tender PALPATION: Yes Soft to palpation Extremity: COMMON NORMALS: no joint enlargement and no pedal edema OTHER: Left BKA. Right foot toe amputations. Neuro: COMMON NORMALS: patient oriented x3 and moves all extremities Skin: COMMON NORMALS: no rashes or lesions noted GENERAL SKIN EXAM: no rashes or lesions noted LESIONS: other (Excoriations on forearms and wrists. Excoriations on right foot/ankle. ) OTHER: Wound L BKA - ulceration w minimal necrosis, no sign surrounding erythema. Undermining. Data : 01/15/21 06:48 01/15/21 06:48 A&P Assessment and plan (1) FIONA (acute kidney injury): Improving, creatinine down to 1.5. Continue gentle IV rehydration as she will allow. Continue to hold lisinopril, NSAIDs. Due to urinary tension cyclobenzaprine, Phenergan were held. Hold donepezil. Retention appears to have improved on repeat bladder scan. Continue IV fluid challenge as tolerating, urine output monitoring as she will allow. Reassess renal function. No obstruction noted on ultrasonography. Acute kidney injury on chronic kidney disease. Possibly secondary to Bactrim. Appears she also may be taking meloxicam at home. Status: Acute (2) Toe infection: Worsening maceration, foul smell of the fourth toe of the right foot after soaking in the shower. No erythema extending proximally. Requested x-rays. Antibiotic coverage expanded with doxycycline, Levaquin. She continues to disconnect her IV, so continue oral antibiotic only for now. Appreciate podiatry evaluation. Status: Acute (3) Non-healing wound of amputation stump: Ulceration of the stump, today with noted undermining, some drainage, with worsening after prolonged soaking and showers. Some necrotic tissue. Mild erythema distally. Previously history of osteomyelitis. Requested x-rays. Antibiotic coverage expanded with doxycycline, Levaquin. She continues to disconnect her IV, so continue oral antibiotic only for now. Appreciate surgery/wound care consultation. Status: Acute (4) Suicide attempt: Continue care by psychiatry. One-to-one supervision. Resume hospitalization on neuropsychiatric unit once medical issues under better control. Status: Acute (5) Low back pain: Mild degenerative changes on mild degenerative changes on x-ray L-spine. Suspicion of hematogenous infection dissemination is low with negative blood culture, no systemic signs of sepsis, however, with persistent pain, MRSA growing from stump wound will assess lumbar and thoracic spine CT. Currently without contrast due to acute kidney injury. Status: Acute (6) Gastroparesis: Status: Acute (7) Depression: As above. Status: Acute (8) Diabetes mellitus type 1: Glucose appears well controlled. Continue insulin. Status: Chronic Additional A&P Information Behavioral disturbance: Appreciate psychiatry recommendations. Medication adjustments, behaviorally today appears better. Prior to 01/15 extremely uncooperative, disconnecting her IV, going or crawling to the shower, with continued episodes of attempted self-harm, pulling out her hair, trying to hit her head on objects, scratching herself, requiring constant supervision by staff, redirection. Has good awareness of where she is and what is going on. Abdominal pain: Right lower quadrant discomfort, appears to be reporting pain with even light pressure or pain to of the abdominal skin fold. Does not appear to be related to internal abdominal component, with previously multiple abdominal CT scans without suspicious findings. At this time will relocate lidocaine patch to right lower quadrant, give additional gabapentin dose. Continue home dose gabapentin. Heating pad. Consider other additional measures depending on response. Gastritis: Managed during recent admission. Continues on PPI twice daily. Chronic anemia History of hypertension: With known labile blood pressures. Soft blood pressures resolved. Continue carvedilol. Restart amlodipine. Attestations Medical Necessity Statement*: Continue admission for assessment management of acute kidney injury, worsening wound of the toe of the right foot, with maceration, necrosis, as well as wound of the left stump, with undermining, drainage requiring additional assessment with history of poorly healing wounds, osteomyelitis, abscess in the setting of diabetes, MRSA. 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 Code Acute Boatbuilder Wood for [facility] Fwd Exam Comprehensive Diagnoses FIONA (acute kidney injury) N17.9 Toe infection L08.9 Non-healing wound of amputation stump T87.89 Suicide attempt T14.91XA Low back pain M54.5 Gastroparesis K31.84 Depression F32.9 Diabetes mellitus type 1 E10.9
--- NOTE | 2021-01-15 16:26 | P.CONIM_ITS ---
Providers/Reason For Consult Consulting Physician/Specialty*: Dave Holley MD Reason for Consult*: Left below the knee stump sore Requesting Physician: Dr. Friedman Attending Physician: Mele Friedman History of Present Illness History of Present Illness Chief Complaint: I have a sore my leg History of present illness: Ms. 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 Currently the patient had suicidal attempt and was transferred to the neuropsych unit. As patient does have chronic persistent ulcer of left below the knee amputation stump with discharge. General surgery was consulted for evaluation and potential management Patient is well-known to me from previous clinical encounter as I did perform incision and drainage of left below-knee amputation abscess with sharp debridement back in February 2020 and subsequently I did not get the chance to have any follow-up with the patient for unclear reason. This patient was supposed to follow-up with me. But unfortunately that did not take place. Patient is currently on 9 6 hours hold Previous imaging studies showed: Left knee x-ray done 12/31/2020 Bones/joints: [id number]-[id number] amputation. No acute fracture, no definite lytic destruction.. Soft tissues: Soft tissue swelling. Vascular calcifications. Same day and ultrasound soft tissue was done and showed FINDINGS: Soft tissues: Soft tissues of the left stump are heterogeneous and thickened with increased vascularity. A discrete large abscess formation is not seen. US/US soft tissue/extremity [id number] IMPRESSION: Findings as stated above are consistent with soft tissue cellulitis. A discrete large abscess formation is not visualized. 01/15/21 Left Knee X ray FINDINGS: Bones/joints: Below the knee amputation. Osteoporosis. No visible acute osseous abnormality radiographically period no visible joint effusion. Soft tissues: No visible soft tissue emphysema or radiopaque foreign body. Vasculature: Arteriosclerosis. XR/XR knee LT 3V* [id number] IMPRESSION: Nonacute. Review of Systems General: Reports: 10 or more systems reviewed and unremarkable except in HPI and below Meds/Allergies Home Medications and Allergies Home Medications Medication Instructions Recorded Confirmed Last Taken Type insulin lispro See Rx Instructions .ROUTE .COMPLEX 12/13/20 01/11/21 12/21/20 History Shirley Nunes U-100 Insulin 5 unit SUBCUT BEDTIME 12/24/20 01/11/21 12/23/20 History cholestyramine (with sugar) 4 g PO BID #60 ea 12/31/20 01/11/21 Unknown Rx cyclobenzaprine 10 mg PO TID PRN #30 tab 12/31/20 01/11/21 Unknown Rx pantoprazole 40 mg PO BID #60 tab 12/31/20 01/11/21 Unknown Rx promethazine 25 mg PO Q6H PRN #30 tab 12/31/20 01/11/21 Unknown Rx clarithromycin 500 mg tablet 500 mg PO BID 14 Days #28 tab 01/06/21 01/11/21 Unknown Rx metronidazole 500 mg tablet 500 mg PO TID 14 Days #42 tab 01/06/21 01/11/21 Unknown Rx dicyclomine 20 mg PO TID #20 tab 01/07/21 01/11/21 Unknown Rx amlodipine 10 mg PO DAILY 01/09/21 01/11/21 Unknown History buspirone 15 mg PO BID 30 Days #60 tab 01/09/21 01/11/21 Unknown Rx carvedilol 12.5 mg PO BID 01/09/21 01/11/21 Unknown History citalopram 20 mg PO DAILY 30 Days tab 01/09/21 01/11/21 Unknown Rx cholestyramine-aspartame 1 ea PO BID 01/11/21 01/11/21 Unknown History [Prevalite] gabapentin 100 mg PO Q12H 01/11/21 01/11/21 Unknown History glipizide 5 mg PO DAILY 01/11/21 01/11/21 Unknown History lisinopril 10 mg PO DAILY 01/11/21 01/11/21 Unknown History meloxicam 15 mg PO DAILY #15 tab 01/11/21 01/11/21 Unknown Rx metformin 500 mg PO BID 01/11/21 01/11/21 Unknown History sulfamethoxazole-trimethoprim 1 tab PO DAILY 01/11/21 01/11/21 Unknown History Allergies Allergy/AdvReac Type Severity Reaction Status Date / Time morphine Allergy ALGY-Difficulty Verified 01/15/21 16:54 Breathing Current Medications Current Medications Generic Name Dose Route Start Last Admin Trade Name Freq PRN Reason Stop Dose Admin Acetaminophen 650 mg 01/12/21 21:33 01/15/21 11:19 Acetaminophen 325 Mg Tablet PO 650 mg Q4H PRN Administration MILD PAIN Amlodipine Besylate 10 mg 01/12/21 09:00 01/13/21 10:19 Amlodipine 10 Mg Tablet PO Not Given DAILY DAWSON Buspirone HCl 15 mg 01/12/21 21:00 01/15/21 10:18 Buspirone 10 Mg Tablet PO 15 mg 899,2099 DAWSON Administration Carvedilol 12.5 mg 01/12/21 21:00 01/15/21 10:17 Carvedilol 12.5 Mg Tablet PO 12.5 mg 899,2099 DAWSON Administration Cefdinir 300 mg 01/15/21 09:00 01/15/21 10:17 Cefdinir 300 Mg Capsule PO 300 mg BID DAWSON Administration Protocol Cholestyramine Resin 4 gm 01/12/21 21:00 01/14/21 08:22 Cholestyramine Powder 4 Gm Pkt PO Not Given 899,2099 [facility] Citalopram Hydrobromide 20 mg 01/12/21 09:00 01/15/21 10:17 Citalopram 20 Mg Tablet PO 20 mg DAILY DAWSON Administration Collagenase 1 applic 01/12/21 22:20 01/15/21 10:31 Collagenase Oint 30 Gm TOPICAL 1 applic DAILY DAWSON Administration Cyclobenzaprine HCl 10 mg 01/11/21 19:44 01/13/21 21:49 Cyclobenzaprine 10 Mg Tablet PO 10 mg TID PRN Administration Muscle Spasms Doxycycline Monohydrate 100 mg 01/12/21 21:00 01/15/21 10:17 Doxycycline 100 Mg Tablet PO 100 mg [facility] Administration Protocol Duloxetine HCl 20 mg 01/13/21 21:00 01/13/21 21:48 Duloxetine 20 Mg Capsule PO 20 mg DAWSON Administration Gabapentin 100 mg 01/12/21 21:00 01/15/21 10:17 Gabapentin 100 Mg Capsule PO 100 mg 899,2099 DAWSON Administration Hydromorphone HCl 0.4 mg 01/14/21 04:48 01/15/21 13:36 Hydromorphone 1 Mg/Ml Inj 1 Ml IVP 0.4 mg Q4H PRN Administration back pain Sodium Chloride 1,000 mls @ 125 mls/hr 01/14/21 04:48 01/15/21 10:15 Sodium Chloride 0.9% IV 125 mls/hr .Q8H DAWSON Administration Ibuprofen 600 mg 01/12/21 21:33 01/14/21 00:31 Ibuprofen 600 Mg Tablet PO 600 mg Q6H PRN Administration MODERATE PAIN Insulin Aspart 0 unit 01/11/21 19:44 01/15/21 11:20 Insulin Aspart 100 Unit/1 Ml SUBCUT 2 unit WM&BEDTIME DAWSON Administration Protocol Insulin Glargine 5 unit 01/11/21 21:00 01/15/21 00:01 Insulin Glargine 100 Units/1 Ml SUBCUT Not Given BEDTIME DAWSON Lidocaine 1 patch 01/12/21 12:00 01/15/21 10:19 Lidocaine 5% Patch TOPICAL 1 patch [id number] DAWSON Administration Olanzapine 5 mg 01/12/21 21:33 01/15/21 00:06 Olanzapine 5 Mg Odt PO 5 mg Q4H PRN Administration Agitation/Psychosis Ondansetron HCl 4 mg 01/12/21 21:33 01/13/21 21:54 Ondansetron 4 Mg Tablet PO 4 mg Q6H PRN Administration NAUSEA AND VOMITING Pantoprazole Sodium 40 mg 01/12/21 21:00 01/15/21 10:[address] 40 Mg Tablet PO 40 mg 0900,2100 DAWSON Administration Phenazopyridine HCl 100 mg 01/14/21 12:00 01/15/21 11:19 Phenazopyridine 100 Mg Tablet PO 100 mg TIDPC DAWSON Administration Ziprasidone 20 mg 01/13/21 09:00 01/15/21 04:36 Ziprasidone 20 Mg/Ml Sdv IM 20 mg BID PRN Administration AGITATION Ziprasidone 20 mg 01/14/21 18:00 01/15/21 10:34 Ziprasidone 20 Mg/Ml Sdv IM Not Given BID DAWSON PFSH Acute PFSH: Medical History Acute kidney injury Back pain CKD (chronic kidney disease) stage 2, GFR 60-89 ml/min baseline Cr is around 1.0 Coronary artery disease hx of stenting Diabetes mellitus type 1 diagnosed age 15, history of peripheral neuropathy, gastroparesis and nephropathy Diabetic foot ulcer s/p surgical intervention and eventual amputation Diabetic gastroparesis Diabetic ophthalmopathy DKA (diabetic ketoacidoses) Foot osteomyelitis, right Hyperlipidemia Hypertension Nausea & vomiting Non-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 Suicidal ideation Surgical History Below-knee amputation of left lower extremity H/O esophagogastroduodenoscopy (12/31/20) Bile reflux gastritis, grade B esophagitis H/O exploratory laparotomy x 3 History of amputation of right forefoot Hx of cholecystectomy Previous section x 3 S/P coronary artery stent placement x 1 S/P percutaneous endoscopic gastrostomy (PEG) tube placement Family History Unknown Diabetes extensive, type II Other CHF (congestive heart failure) Social History Smoking and tobacco status: former smoker Quit status (tobacco): has quit using tobacco Former quit date comment: 15 yrs ago Alcohol intake: former Former alcohol use details: 15 yrs ago Household members: spouse Marital status: Sexually active: Yes (1, ) Female Reproductive History: Date of last menstrual period: 12/17/20 Vitals/I&O/Wt Last Vital Signs Temp 98.5 F 01/15/21 11:36 Pulse 95 01/15/21 11:36 Resp 18 01/15/21 13:36 BP 178/86 01/15/21 08:00 Pulse Ox 95 01/15/21 13:36 01/15/21 01/15/21 01/15/21 06:59 14:59 22:59 Intake Total 1000 / 2800 1355.833 / 1355.833 Output Total 600 / 1550 Balance 400 / 1250 1355.833 / 1355.833 Weight last 48 hrs Weight 192 lb 4.8 oz Physical Exam Narrative: EXAM NARRATIVE: Patient is conscious alert oriented X3 no apparent distress BMI 28.4 Head and neck examination PERRLA no masses no cervical lymphadenopathy no jaundice Cardiac examination audible S1-S2 no murmurs no gallops no arrhythmias Chest is clear bilateral,abscence of Rhonchi or wheezes,no surgical emphysema Abdomen nontender nondistended soft no organomegaly guarding or rigidity/no signs of peritonitis Left below the knee amputation stump ulcer with undermining at the periulcer area, using a cotton swab for at least 3 to 4 cm cephalad circumferentially some purulent-like discharge, the ulcer measures about 2 x 1-1/2 cm, no bone exposure clinically appreciated, certainly there is a protrusion of the left tibia and likely the patient does have a pressure injury ulcer. Mild erythema at the stump site but no obvious cellulitis. Left popliteal artery well palpable, capillary refill less than 2-seconds A&P Assessment and plan (1) Non-healing wound of amputation stump: After history taking physical examination and reviewing the chart and images with my personal interpretation, I did mortgage counselor the patient for I&D of nonhealing wound of left below the knee amputation stump. To be done tomorrow in the OR. I did talk with the patient about the potential of revision amputation that could be including but not limited to revision of the left below the knee amputation versus left [id number] amputation. Patient Will require a CT scan of the left lower extremity with IV contrast when kidney functions are more appropriate to assess further bone involvement and arterial duplex studies. Indications, risks, benefits alternatives all discussed with the patient, I did explain for the patient before we get to go for any amputation surgeries she needs to be counseled and nutrition needs to be optimized as well as her psychological status so we can set the patient for success and better functionality. Currently the patient does not have any prosthesis. I would like for the patient to follow-up with me on weekly basis at the wound care center so we can follow on her clinical progress. Informed consent per chart Assurance and education All questions have been answered and all concerns have been addressed to patient's satisfaction. Status: Acute Consult Attestations Medical Necessity Statement: Patient requiring inpatient hospitalization passing 2 midnights for medical and surgical care Time Spent in Patient Care: 16 - 35 minutes (>than 50% of time spent in counselling and/or direct pt care on unit) . 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 Code Acute Trolley Car Overhauler for Kim Mitchell Diagnoses Non-healing wound of amputation stump T87.89
--- NOTE | 2021-01-15 16:32 | PC.NURSE ---
Patient has Geodon order PRN and DAWSON. Patient has been sleeping most of the day. Precast Worker asked Idalia if he wants me to hold the scheduled Geodon since patient has been sleeping most of the day. Dr Lee said to talk to Dr Martinez. Precast Worker called Dr Martinez, he said Geodon should be PRN only and not Scheduled. Precast Worker discontinued the Scheduled Geodon order.
--- NOTE | 2021-01-15 16:37 | CTR_ITS ---
PROCEDURE INFORMATION: Exam: CT Thoracic Spine Without Contrast Exam date and time: 01/15/2021 4:45 PM Age: 40 years old Clinical indication: Pain in thoracic spine; Without myelpathy or radiculopathy; Patient HX: C/O back pain w current le MRSA no known injury; Additional info: Back pain. Le MRSA wound infection TECHNIQUE: Imaging protocol: Computed tomography images of the thoracic spine without contrast. Total images: 499 Radiation optimization: All CT scans at this facility use at least one of these dose optimization techniques: automated exposure control; mA and/or kV adjustment per patient size (includes targeted exams where dose is matched to clinical indication); or iterative reconstruction. COMPARISON: No relevant prior studies available. RADIATION DOSE METRICS: Total DLP (mGy-cm): 1998.5 FINDINGS: Vertebrae: No acute fracture. Normal alignment. Minimal degenerative disease. Discs/Spinal canal/Neural foramina: No visible herniated nucleus pulposis or significant posterior annular disc bulge. No significant disc protrusion. No severe spinal canal stenosis. No significant neural foraminal narrowing. Soft tissues: Unremarkable. CT/CT thoracic spin wo con* [id number] IMPRESSION: Unremarkable CT Spine. Radiation Dose CTDIVOL = (mGy): DLP = 1998.5 (mGy-cm)
--- NOTE | 2021-01-15 16:37 | CTR_ITS ---
PROCEDURE INFORMATION: Exam: CT Lumbar Spine Without Contrast Exam date and time: 01/15/2021 4:45 PM Age: 40 years old Clinical indication: Low back pain; Patient HX: C/O back pain w current le MRSA no known injury; Additional info: Back pain, MRSA wound infection TECHNIQUE: Imaging protocol: Computed tomography images of the lumbar spine without contrast. Total images: 384 Radiation optimization: All CT scans at this facility use at least one of these dose optimization techniques: automated exposure control; mA and/or kV adjustment per patient size (includes targeted exams where dose is matched to clinical indication); or iterative reconstruction. COMPARISON: CT lumbar spine wo con* [id number] 12/22/2020 7:19 PM RADIATION DOSE METRICS: Total DLP (mGy-cm): 2093.04 FINDINGS: Vertebrae: No acute fracture. Normal alignment. No visible spondylolysis or spondylolisthesis. No visible significant degenerative disease. No visible significant facet disease. Discs/Spinal canal/Neural foramina: No visible herniated nucleus pulposis or significant posterior annular disc bulge that results in central canal stenosis or neural foraminal carotid from. No significant disc protrusion. No severe spinal canal stenosis. No significant neural foraminal narrowing. Soft tissues: Unremarkable. CT/CT lumbar spine wo con* [id number] IMPRESSION: No acute findings. Radiation Dose CTDIVOL = (mGy): DLP = 2093.04 (mGy-cm)
--- NOTE | 2021-01-15 16:47 | PC.NURSE ---
rcvd verbal order from Dr Holley for NPO diet after midnight. entry writer put order in.
[2021-01-15] MEDS: ondansetron 4 MG Tablet PO (16:52)
[2021-01-15 16:54] LABS: Glucose Point of Care 182 mg/dL (70-110)
--- NOTE | 2021-01-15 16:57 | PC.NURSE ---
Patient taken to CT
[2021-01-15] MEDS: amlodipine 10 mg Tablet 5 MG PO (17:57)
--- NOTE | 2021-01-15 18:01 | PC.NURSE ---
patient requested call be made to her and transferred to room. poem writer placed call and transferred it to the room.
[2021-01-15 21:17] LABS: Glucose Point of Care 110 mg/dL (70-110)
[2021-01-15] MEDS: insulin glargine 100 units/1 mL 5 UNIT SUBCUT (23:17)
[2021-01-16] VITALS (20 sets, daily range): BP systolic 83–193; BP diastolic 55–108; PULSE 69–110; RESP 14–22; TEMP 36.2–37.3; O2SAT 94–100
[2021-01-16] MEDS: HYDROmorphone 1 mg/mL INJ 1 mL 0.4 MG IVP ×4 (04:07→21:36)
[2021-01-16 06:49] LABS: Glucose Point of Care 149 mg/dL (70-110)
[2021-01-16] MEDS: ondansetron 2 mg/ML SDV 2 mL 4 MG IVP (07:37)
[2021-01-16 07:47] LABS: Basophils # 0.1 10^3/uL (0.0-0.1); Basophils % 0.6 %; Eosinophils # 0.1 10^3/uL (0.0-0.8); Eosinophils % 0.6 %; Hematocrit 37.7 % (37.0-47.0); Hemoglobin 11.9 g/dL (11.5-15.3); Lymphocytes # 1.3 10^3/uL (0.8-4.8); Lymphocytes % 14.9 %; Mean Corpuscular HGB Conc 31.6 g/dL (30.0-36.0); Mean Corpuscular Hemoglobin 27.7 pg (28.0-34.0); Mean Corpuscular Volume 87.9 fL (81-99); Mean Platelet Volume 8.4 fL (7.4-10.4); Monocytes # 0.4 10^3/uL (0.2-0.9); Monocytes % 4.8 %; Neutrophils # 6.86 10^3/uL (1.8-7.7); Neutrophils % 78.8 %; Nucleated Red Blood Cells % 0 %; Platelet Count 623 10^3/cmm (130-400); Red Blood Count 4.29 10^6/uL (4.1-5.3); Red Cell Distribution Width 13.2 % (12.1-15.1); White Blood Count 8.7 10^3/uL (4.0-10.0)
[2021-01-16] MEDS: acetaminophen 1,000 MG/100 ML PIGGYBACK 400 MG IV (07:49)
[2021-01-16 07:51] LABS: Alanine Aminotransferase 11 U/L (0-33); Albumin Level 3.4 g/dL (3.5-5.2); Alkaline Phosphatase 124 IU/L (35-105); Anion Gap 19.4 (5-19); Aspartate Amino Transferase 13 U/L (0-32); Blood Urea Nitrogen 13 mg/dL (6-20); Calcium 8.7 mg/dL (8.5-10.5); Carbon Dioxide 21 mmol/L (22-29); Chloride 99 mmol/L (98-107); Glomerular Filtration Rate 54.5 mL/min (90-130); Glucose 150 mg/dL (65-115); Osmolality Calculated 285 mOsm/kg (285-295); Potassium 3.4 mmol/L (3.5-5.1); Sodium 136 mmol/L (136-145); Total Bilirubin 0.4 mg/dL (0.15-1.2); Total Protein 7.4 g/dL (6.6-8.7)
--- NOTE | 2021-01-16 08:07 | ANES.PREANE2 ---
Pre-Anesthetic Assessment Pre-Anesthetic Assessment: Height/Weight: Height 1.75 m Weight 87.226 kg Temp Pulse Resp BP Pulse Ox 98.1 F 95 18 165/92 98 01/16/21 04:00 01/16/21 04:00 01/16/21 04:00 01/16/21 04:00 01/16/21 04:00 Preop Diagnosis: Left below the knee amputation stump ulcer Proposed Procedure: Operation Date: 01/16/21 08:10 Proposed Procedures p Debridement of left below the knee amputation stump ulcer(Left) - Dave Holley MD Was Beta Rozina taken within 24 hours: N/A Was Clonidine taken within 24 hours: N/A Social: Social History: No alcohol and No tobacco Exam: Pre-Anes Outpt Exam: alert, oriented x 3 and regular rate & rhythm Airway: Submandibular: WNL Cervical ROM: WNL MP: 2 Dentition: Chipped Additional comments: Very poor dentition, multiple broken/chipped Pulmonary: Pulmonary: COPD CV/HEM: CV/HEM: CAD (stent), HTN and PVD : : Chronic renal Insufficiency GI: GI: GERD Metabolic: Metabolic: DM (poorly controlled) Musc/skel: Musc/skel: Lower Back Pain Neuropsych: Neuropsych: Anxiety and Depression Anesthetic Plan: ASA status: 3 Anesthesia: Choice Risk of > 500 ml blood loss (7ml/kg in children): No Meds/Allergies Current Medications: Current Medications Generic Name Dose Route Start Last Admin Trade Name Freq PRN Reason Stop Dose Admin Acetaminophen 650 mg 01/12/21 21:33 01/15/21 11:19 Acetaminophen 32 5 Mg Tablet PO 650 mg Q4H PRN Administration MILD PAIN Amlodipine Besylat e 5 mg 01/15/21 16:45 01/15/21 17:57 Amlodipine 10 Mg Tablet PO 5 mg DAILY DAWSON Administration Buspirone HCl 15 mg 01/12/21 21:00 01/15/21 23:18 Buspirone 10 Mg Tablet PO 15 mg 0900,2099 DAWSON Administration Carvedilol 12.5 mg 01/12/21 21:00 01/15/21 23:19 Carvedilol 12.5 Mg Tablet PO 12.5 mg 0900,2100 DAWSON Administration Cefdinir 300 mg 01/15/21 09:00 01/15/21 16:52 Cefdinir 300 Mg Capsule PO 300 mg BID [facility] Administration Protocol Cholestyramine Res in 4 gm 01/12/21 21:00 01/14/21 08:22 Cholestyramine P owder 4 Gm Pkt PO Not Given 899,2099 [facility] Citalopram Hydrobr omide 20 mg 01/12/21 09:00 01/15/21 10:17 Citalopram 20 Mg Tablet PO 20 mg DAILY DAWSON Administration Collagenase 1 applic 01/12/21 22:20 01/15/21 10:31 Collagenase Oint 30 Gm TOPICAL 1 applic DAILY [facility] Administration Cyclobenzaprine HC l 10 mg 01/11/21 19:44 01/13/21 21:49 Cyclobenzaprine 10 Mg Tablet PO 10 mg TID PRN Administration Muscle Spasms Doxycycline Monohy drate 100 mg 01/12/21 21:00 01/15/21 23:18 Doxycycline 100 Mg Tablet PO 100 mg 0900,2099 [facility] Administration Protocol Duloxetine HCl 20 mg 01/13/21 21:00 01/13/21 21:48 Duloxetine 20 Mg Capsule PO 20 mg 899,2099 [facility] Administration Gabapentin 100 mg 01/12/21 21:00 01/15/21 23:18 Gabapentin 100 M g Capsule PO 100 mg 899,2099 [facility] Administration Hydromorphone HCl 0.4 mg 01/14/21 04:48 01/16/21 04:07 Hydromorphone 1 Mg/Ml Inj 1 Ml IVP 0.4 mg Q4H PRN Administration back pain Sodium Chloride 1,000 mls @ 75 ml s/hr 01/14/21 04:48 01/15/21 23:50 Sodium Chloride 0.9% IV 125 mls/hr .[id number] [facility] Administration Ibuprofen 600 mg 01/12/21 21:33 01/14/21 00:31 Ibuprofen 600 Mg Tablet PO 600 mg Q6H PRN Administration MODERATE PAIN Insulin Aspart 0 unit 01/11/21 19:44 01/15/21 21:16 Insulin Aspart 1 00 Unit/1 Ml SUBCUT Not Given WM&BEDTIME [facility] Protocol Insulin Glargine 5 unit 01/11/21 21:00 01/15/21 23:17 Insulin Glargine 100 Units/1 Ml SUBCUT 5 unit BEDTIME [facility] Administration Lidocaine 1 patch 01/12/21 12:00 01/15/21 23:19 Lidocaine 5% Pat ch TOPICAL Not Given [id number] [facility] Olanzapine 5 mg 01/12/21 21:33 01/15/21 00:06 Olanzapine 5 Mg Odt PO 5 mg Q4H PRN Administration Agitation/Psychos is Ondansetron HCl 4 mg 01/12/21 21:33 01/15/21 16:52 Ondansetron 4 Mg Tablet PO 4 mg Q6H PRN Administration NAUSEA AND VOMITI NG Pantoprazole Sodiu m 40 mg 01/12/21 21:00 01/15/21 23:[address] 40 Mg Tablet PO 40 mg 0900,2100 [facility] Administration Phenazopyridine HC l 100 mg 01/14/21 12:00 01/15/21 16:52 Phenazopyridine 100 Mg Tablet PO 100 mg TIDPC [facility] Administration Ziprasidone 20 mg 01/13/21 09:00 01/15/21 04:36 Ziprasidone 20 M g/Ml Sdv IM 20 mg BID PRN Administration AGITATION PFSH Anesthesia PFSH: Medical History Acute kidney injury Back pain CKD (chronic kidney disease) stage 2, GFR 60-89 ml/min baseline Cr is around 1.0 Coronary artery disease hx of stenting Diabetes mellitus type 1 diagnosed age 15, history of peripheral neuropathy, gastroparesis and nephropathy Diabetic foot ulcer s/p surgical intervention and eventual amputation Diabetic gastroparesis Diabetic ophthalmopathy DKA (diabetic ketoacidoses) Foot osteomyelitis, right Hyperlipidemia Hypertension Nausea & vomiting Non-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 Suicidal ideation Surgical History Below-knee amputation of left lower extremity H/O esophagogastroduodenoscopy (12/31/20) Bile reflux gastritis, grade B esophagitis H/O exploratory laparotomy x 3 History of amputation of right forefoot Hx of cholecystectomy Previous section x 3 S/P coronary artery stent placement x 1 S/P percutaneous endoscopic gastrostomy (PEG) tube placement Family History Unknown Diabetes extensive, type II Other CHF (congestive heart failure) Social History Smoking and tobacco status: former smoker Quit status (tobacco): has quit using tobacco Former quit date comment: 15 yrs ago Alcohol intake: former Former alcohol use details: 15 yrs ago Household members: spouse Marital status: Sexually active: Yes (1, ) Female Reproductive History: Date of last menstrual period: 12/17/20 Data Anesthesia CBC & Chem 7: 01/16/21 07:16 01/16/21 07:16 Other Labs: Laboratory Results - last 48 hr 01/14/21 01/14/21 01/14/21 10:57 15:20 16:46 WBC RBC Hgb Hct MCV MCH MCHC RDW Plt Count MPV Neut % (Auto) Lymph % (Auto) [place] % (Auto) Eos % (Auto) Baso % (Auto) Neut # (Auto) Lymph # (Auto) [place] # (Auto) Eos # (Auto) Baso # (Auto) Nucleated RBC % (auto) Nucleated RBCs # Sodium Potassium Chloride Carbon Dioxide Anion Gap BUN Creatinine GFR Calculation Glucose POC Glucose 148 H 144 H Calculated Osmolality Calcium Total Bilirubin AST ALT Alkaline Phosphatase Total Protein Albumin Globulin Urine Color Yellow Urine Appearance Hazy A Urine pH 5 Ur Specific [place] 1.020 Urine Protein 3+ H Urine Glucose (UA) Norm Urine Ketones Negative Urine Blood Trace H Urine Nitrate Negative Urine Bilirubin Neg Urine Urobilinogen Norm Ur Leukocyte Esterase 2+ H Urine RBC Rare Urine WBC 55-80 H Ur Squamous Epith Cells 0-4 H Amorphous Sediment Not Reportable Urine Bacteria 3+ H 01/14/21 01/15/21 01/15/21 20:37 06:13 06:48 WBC 9.3 RBC 3.77 L Hgb 10.5 L Hct 33.4 L MCV 88.6 MCH 27.9 L MCHC 31.4 RDW 13.2 Plt Count 500 H MPV 8.6 Neut % (Auto) 79.9 Lymph % (Auto) 12.4 [place] % (Auto) 6.6 Eos % (Auto) 0.2 Baso % (Auto) 0.5 Neut # (Auto) 7.38 Lymph # (Auto) 1.2 [place] # (Auto) 0.6 Eos # (Auto) 0.0 Baso # (Auto) 0.1 Nucleated RBC % (auto) 0 Nucleated RBCs # 0.0 Sodium Potassium Chloride Carbon Dioxide Anion Gap BUN Creatinine GFR Calculation Glucose POC Glucose 101 121 H Calculated Osmolality Calcium Total Bilirubin AST ALT Alkaline Phosphatase Total Protein Albumin Globulin Urine Color Urine Appearance Urine pH Ur Specific [place] Urine Protein Urine Glucose (UA) Urine Ketones Urine Blood Urine Nitrate Urine Bilirubin Urine Urobilinogen Ur Leukocyte Esterase Urine RBC Urine WBC Ur Squamous Epith Cells Amorphous Sediment Urine Bacteria 01/15/21 01/15/21 01/15/21 06:48 10:53 16:44 WBC RBC Hgb Hct MCV MCH MCHC RDW Plt Count MPV Neut % (Auto) Lymph % (Auto) [place] % (Auto) Eos % (Auto) Baso % (Auto) Neut # (Auto) Lymph # (Auto) [place] # (Auto) Eos # (Auto) Baso # (Auto) Nucleated RBC % (auto) Nucleated RBCs # Sodium 138 Potassium 3.3 L Chloride 103 Carbon Dioxide 19 L Anion Gap 19.3 H BUN 23 H Creatinine 1.5 H GFR Calculation 38.1 L Glucose 132 H POC Glucose 141 H 182 H Calculated Osmolality 292 Calcium 8.6 Total Bilirubin 0.3 AST 14 ALT 11 Alkaline Phosphatase 110 H Total Protein 6.7 Albumin 3.2 L Globulin 3.5 Urine Color Urine Appearance Urine pH Ur Specific [place] Urine Protein Urine Glucose (UA) Urine Ketones Urine Blood Urine Nitrate Urine Bilirubin Urine Urobilinogen Ur Leukocyte Esterase Urine RBC Urine WBC Ur Squamous Epith Cells Amorphous Sediment Urine Bacteria 01/15/21 01/16/21 01/16/21 20:51 06:44 07:16 WBC 8.7 RBC 4.29 Hgb 11.9 Hct 37.7 MCV 87.9 MCH 27.7 L MCHC 31.6 RDW 13.2 Plt Count 623 H MPV 8.4 Neut % (Auto) 78.8 Lymph % (Auto) 14.9 [place] % (Auto) 4.8 Eos % (Auto) 0.6 Baso % (Auto) 0.6 Neut # (Auto) 6.86 Lymph # (Auto) 1.3 [place] # (Auto) 0.4 Eos # (Auto) 0.1 Baso # (Auto) 0.1 Nucleated RBC % (auto) 0 Nucleated RBCs # 0.0 Sodium Potassium Chloride Carbon Dioxide Anion Gap BUN Creatinine GFR Calculation Glucose POC Glucose 110 149 H Calculated Osmolality Calcium Total Bilirubin AST ALT Alkaline Phosphatase Total Protein Albumin Globulin Urine Color Urine Appearance Urine pH Ur Specific [place] Urine Protein Urine Glucose (UA) Urine Ketones Urine Blood Urine Nitrate Urine Bilirubin Urine Urobilinogen Ur Leukocyte Esterase Urine RBC Urine WBC Ur Squamous Epith Cells Amorphous Sediment Urine Bacteria 01/16/21 07:16 WBC RBC Hgb Hct MCV MCH MCHC RDW Plt Count MPV Neut % (Auto) Lymph % (Auto) [place] % (Auto) Eos % (Auto) Baso % (Auto) Neut # (Auto) Lymph # (Auto) [place] # (Auto) Eos # (Auto) Baso # (Auto) Nucleated RBC % (auto) Nucleated RBCs # Sodium 136 Potassium 3.4 L Chloride 99 Carbon Dioxide 21 L Anion Gap 19.4 H BUN 13 Creatinine 1.1 H GFR Calculation 54.5 L Glucose 150 H POC Glucose Calculated Osmolality 285 Calcium 8.7 Total Bilirubin 0.4 AST 13 ALT 11 Alkaline Phosphatase 124 H Total Protein 7.4 Albumin 3.4 L Globulin 4.0 Urine Color Urine Appearance Urine pH Ur Specific [place] Urine Protein Urine Glucose (UA) Urine Ketones Urine Blood Urine Nitrate Urine Bilirubin Urine Urobilinogen Ur Leukocyte Esterase Urine RBC Urine WBC Ur Squamous Epith Cells Amorphous Sediment Urine Bacteria Micro: Microbiology 01/14/21 15:20 Urine Culture - Preliminary Urine,Clean Catch Gram Negative Rods Cardiac Studies: No Data to Display
[2021-01-16] MEDS: lidocaine 2% INJ 20 mL INJECTION (08:30)
--- NOTE | 2021-01-16 08:35 | PM.OP ---
Operative Report Date of procedure: January 16, 2021 Pre-op Diagnosis: Left below the knee amputation stump ulcer Post-op diagnosis: same Post-op Findings: Predebridement measurements 2.5 x 2 x 1 cm Post debridement measurements 2.5 x [address] to the musculofascial layer Procedure Done: Debridement of left below the knee amputation stump pressure injury ulcer Implants: Packing with 1 inch Nu Gauze soaked in 2% lidocaine Specimens removed/disposition: Tissues for cultures and sensitivities Surgeon: Dave Holley [employer] Cell Test Engineer: surgical nurse practitioner Debra Circulating nurse Kimberly Anesthesia: General (LMA snack bar cashier Jerri) Estimated blood loss (mL): 5 Condition: stable Disposition: floor Brief History: Left below the knee amputation stump ulcer with evidence of purulent discharge. Full H&P and informed consent per chart. Procedure: After identifying the patient holding area, the left lower extremity was marked before the procedure by myself, patient was then taken to the operative suite, was placed in supine position, IV antibiotics were given per protocol,IV propofol was infused by the anesthesia provider and LMA was placed, prep and drape of the left below-knee amputation stump site was done under the usual sterile technique. Time-out was done verifying the patient's name/date of /planned procedure and destination after the procedure, all were in agreement. Started by debriding the wound sharply and tissues were obtained for cultures and sensitivities. Noticed to have an undermining of the ulcer cephalad particularly anterior compartment more than the posterior compartment. There was no evidence of pus at this point and debridement of necrotic tissue was done all the way to the musculofascial layer there was no bone exposed at this point.Sharp curette edge was done as well. Predebridement measurements 2.5 x 2 x 1 cm Post debridement measurements 2.5 x 2 x [address] to the musculofascial layer Copious and through Irrigation of the wound was done with 1 L of warm saline and another liter of Vash solution, followed by appropriate hemostasis, packing of the wound was done with one inch Nu Gauze impregnated and lidocaine 2%, followed by ABDs, Kerlix and Miguel A wraps. Patient tolerated the procedure well, count of instruments,needles and sponges were completed at the end of the procedure.Patient was then taken to the recovery area in stable condition. I was present for the whole entire procedure.
--- NOTE | 2021-01-16 09:23 | ANE.PACU2 ---
Inpatient post-anesthesia follow up: Airway intact: Yes Vital signs: Temperature 97.7 F Pulse Rate [Monito r] 118 Pulse Rate [Orthos tatic 103 Standing Right] Pulse Rate [Orthos tatic 104 Sitting Right] Pulse Rate [Orthos tatic Lying 92 Right] Pulse Rate 74 Respiratory Rate 17 Blood Pressure [Or thostatic 115/81 Standing Right Arm ] Blood Pressure [Or thostatic 139/86 Sitting Right Arm] Blood Pressure [Or thostatic 136/85 Lying Right Arm] Blood Pressure [Le ft Arm] 165/86 Blood Pressure 89/58 Pulse Oximetry 96 Oxygen Delivery Me thod Room Air Oxygen Flow Rate 6 Fraction of Inspir ed Oxygen Hydration adequate: Yes Nausea and vomiting: No Pain level: 2 Mental status: Baseline
[2021-01-16 11:42] LABS: Glucose Point of Care 108 mg/dL (70-110)
[2021-01-16] MEDS: phenazopyridine 100 mg Tablet PO ×2 (11:47→17:22)
--- NOTE | 2021-01-16 12:12 | PC.NURSE ---
Rcvd verbal order after going over patient's current medication list for Propranolol 20mg PO TID because patient's blood pressure has been elevated.
[2021-01-16] MEDS: ondansetron 4 MG Tablet PO ×2 (12:17→21:23)
--- NOTE | 2021-01-16 12:28 | PC.NURSE ---
Nurse notified about blood pressure.
--- NOTE | 2021-01-16 12:46 | P.CONIM_ITS ---
Providers/Reason For Consult Consulting Physician/Specialty*: Rafael Sin D.P.M. Reason for Consult*: Right fourth toe wound Attending Physician: Mele Friedman History of Present Illness History of Present Illness Cherrie Solomon is a 40 year old female with suicidal ideation, type 1 diabetes and right fourth toe wound. I was consulted for evaluation of the right foot wound. Patient is unsure of when the wound began. She states that she noticed the toenail was falling off and that the toe was swelling several days ago. Denies any pain secondary to neuropathy. Patient denies any subjective nausea, vomiting, fever, chills, shortness of breath or chest pain. Review of Systems General: Reports: 10 or more systems reviewed and unremarkable except in HPI and below Const: Denies: fever(s) or chills Card: Denies: chest pain or palpitations Resp: Denies: productive cough GI: Denies: abdominal pain, nausea or vomiting : Denies: flank pain Musc: Reports: extremity swelling, joint pain, joint stiffness, limited range of motion and deformity Skin/Breast: Reports: sores, nail changes and change in hair; Denies: rash Neuro: Reports: numbness in extremities, sensory changes and difficulty walking Psych: Denies: suicidal ideation Keith/Lymph: Denies: easy bruising Meds/Allergies Home Medications and Allergies Home Medications Medication Instructions Recorded Confirmed Last Taken Type insulin lispro See Rx Instructions .ROUTE .COMPLEX 12/13/20 01/11/21 12/21/20 History Lantus Solostar U-100 Insulin 5 unit SUBCUT BEDTIME 12/24/20 01/11/21 12/23/20 History cholestyramine (with sugar) 4 g PO BID #60 ea 12/31/20 01/11/21 Unknown Rx cyclobenzaprine 10 mg PO TID PRN #30 tab 12/31/20 01/11/21 Unknown Rx pantoprazole 40 mg PO BID #60 tab 12/31/20 01/11/21 Unknown Rx promethazine 25 mg PO Q6H PRN #30 tab 12/31/20 01/11/21 Unknown Rx clarithromycin 500 mg tablet 500 mg PO BID 14 Days #28 tab 01/06/21 01/11/21 Unknown Rx metronidazole 500 mg tablet 500 mg PO TID 14 Days #42 tab 01/06/21 01/11/21 Unknown Rx dicyclomine 20 mg PO TID #20 tab 01/07/21 01/11/21 Unknown Rx amlodipine 10 mg PO DAILY 01/09/21 01/11/21 Unknown History buspirone 15 mg PO BID 30 Days #60 tab 01/09/21 01/11/21 Unknown Rx carvedilol 12.5 mg PO BID 01/09/21 01/11/21 Unknown History citalopram 20 mg PO DAILY 30 Days tab 01/09/21 01/11/21 Unknown Rx cholestyramine-aspartame 1 ea PO BID 01/11/21 01/11/21 Unknown History [Prevalite] gabapentin 100 mg PO Q12H 01/11/21 01/11/21 Unknown History glipizide 5 mg PO DAILY 01/11/21 01/11/21 Unknown History lisinopril 10 mg PO DAILY 01/11/21 01/11/21 Unknown History meloxicam 15 mg PO DAILY #15 tab 01/11/21 01/11/21 Unknown Rx metformin 500 mg PO BID 01/11/21 01/11/21 Unknown History sulfamethoxazole-trimethoprim 1 tab PO DAILY 01/11/21 01/11/21 Unknown History Allergies Allergy/AdvReac Type Severity Reaction Status Date / Time morphine Allergy ALGY-Difficulty Verified 01/15/21 16:54 Breathing Current Medications Current Medications Generic Name Dose Route Start Last Admin Trade Name Freq PRN Reason Stop Dose Admin Acetaminophen 650 mg 01/12/21 21:33 01/15/21 11:19 Acetaminophen 325 Mg Tablet PO 650 mg Q4H PRN Administration MILD PAIN Amlodipine Besylate 5 mg 01/15/21 16:45 01/15/21 17:57 Amlodipine 10 Mg Tablet PO 5 mg DAILY DAWSON Administration Buspirone HCl 15 mg 01/12/21 21:00 01/15/21 23:18 Buspirone 10 Mg Tablet PO 15 mg 0900,2100 DAWSON Administration Carvedilol 12.5 mg 01/12/21 21:00 01/15/21 23:19 Carvedilol 12.5 Mg Tablet PO 12.5 mg 0900,2100 DAWSON Administration Cefdinir 300 mg 01/15/21 09:00 01/15/21 16:52 Cefdinir 300 Mg Capsule PO 300 mg BID DAWSON Administration Protocol Cholestyramine Resin 4 gm 05/27/21 21:00 01/14/21 08:22 Cholestyramine Powder 4 Gm Pkt PO Not Given 899,2099 [facility] Citalopram Hydrobromide 20 mg 01/12/21 09:00 01/15/21 10:17 Citalopram 20 Mg Tablet PO 20 mg DAILY DAWSON Administration Collagenase 1 applic 01/12/21 22:20 01/15/21 10:31 Collagenase Oint 30 Gm TOPICAL 1 applic DAILY [facility] Administration Cyclobenzaprine HCl 10 mg 01/11/21 19:44 01/13/21 21:49 Cyclobenzaprine 10 Mg Tablet PO 10 mg TID PRN Administration Muscle Spasms Doxycycline Monohydrate 100 mg 01/12/21 21:00 01/15/21 23:18 Doxycycline 100 Mg Tablet PO 100 mg 899,2099 [facility] Administration Protocol Duloxetine HCl 20 mg 01/13/21 21:00 01/13/21 21:48 Duloxetine 20 Mg Capsule PO 20 mg 09,2099 [facility] Administration Gabapentin 100 mg 01/12/21 21:00 01/15/21 23:18 Gabapentin 100 Mg Capsule PO 100 mg 0900,2099 [facility] Administration Hydromorphone HCl 0.4 mg 01/14/21 04:48 01/16/21 11:47 Hydromorphone 1 Mg/Ml Inj 1 Ml IVP 0.4 mg Q4H PRN Administration back pain Sodium Chloride 1,000 mls @ 75 mls/hr 01/14/21 04:48 01/16/21 11:30 Sodium Chloride 0.9% IV Infused .[id number] [facility] Infusion Ibuprofen 600 mg 01/12/21 21:33 01/14/21 00:31 Ibuprofen 600 Mg Tablet PO 600 mg Q6H PRN Administration MODERATE PAIN Insulin Aspart 0 unit 01/11/21 19:44 01/16/21 11:35 Insulin Aspart 100 Unit/1 Ml SUBCUT Not Given WM&BEDTIME [facility] Protocol Insulin Glargine 5 unit 01/11/21 21:00 01/15/21 23:17 Insulin Glargine 100 Units/1 Ml SUBCUT 5 unit BEDTIME DAWSON Administration Lidocaine 1 patch 01/12/21 12:00 01/15/21 23:19 Lidocaine 5% Patch TOPICAL Not Given [id number] [facility] Olanzapine 5 mg 01/12/21 21:33 01/15/21 00:06 Olanzapine 5 Mg Odt PO 5 mg Q4H PRN Administration Agitation/Psychosis Ondansetron HCl 4 mg 01/12/21 21:33 01/16/21 12:17 Ondansetron 4 Mg Tablet PO 4 mg Q6H PRN Administration NAUSEA AND VOMITING Pantoprazole Sodium 40 mg 01/12/21 21:00 01/15/21 23:[address] 40 Mg Tablet PO 40 mg 0900,2100 DAWSON Administration Phenazopyridine HCl 100 mg 01/14/21 12:00 01/16/21 11:47 Phenazopyridine 100 Mg Tablet PO 100 mg TIDPC DAWSON Administration Ziprasidone 20 mg 01/13/21 09:00 01/15/21 04:36 Ziprasidone 20 Mg/Ml Sdv IM 20 mg BID PRN Administration AGITATION PFSH Acute PFSH: Medical History Acute kidney injury Back pain CKD (chronic kidney disease) stage 2, GFR 60-89 ml/min baseline Cr is around 1.0 Coronary artery disease hx of stenting Diabetes mellitus type 1 diagnosed age 15, history of peripheral neuropathy, gastroparesis and nephropathy Diabetic foot ulcer s/p surgical intervention and eventual amputation Diabetic gastroparesis Diabetic ophthalmopathy DKA (diabetic ketoacidoses) Foot osteomyelitis, right Hyperlipidemia Hypertension Nausea & vomiting Non-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 Suicidal ideation Surgical History Below-knee amputation of left lower extremity H/O esophagogastroduodenoscopy (12/31/20) Bile reflux gastritis, grade B esophagitis H/O exploratory laparotomy x 3 History of amputation of right forefoot Hx of cholecystectomy Previous section x 3 S/P coronary artery stent placement x 1 S/P percutaneous endoscopic gastrostomy (PEG) tube placement Family History Unknown Diabetes extensive, type II Other CHF (congestive heart failure) Social History Smoking and tobacco status: former smoker Quit status (tobacco): has quit using tobacco Former quit date comment: 15 yrs ago Alcohol intake: former Former alcohol use details: 15 yrs ago Household members: spouse Marital status: Sexually active: Yes (1, ) Female Reproductive History: Date of last menstrual period: 12/17/20 Vitals/I&O/Wt Last Vital Signs Temp 97.2 F L 01/16/21 11:15 Pulse 88 01/16/21 12:00 Resp 19 H 01/16/21 12:00 BP 193/108 01/16/21 12:00 Pulse Ox 100 01/16/21 12:00 01/15/21 01/16/21 01/16/21 22:59 06:59 14:59 Intake Total 1120 / 2475.833 1150 / 1150 Output Total 2510 / 2510 Balance 1120 / 2475.833 -1360 / -1360 Weight last 48 hrs Weight 192 lb 4.8 oz Physical Exam Narrative: EXAM NARRATIVE: GENERAL: Patient is alert and oriented ?3 and in no acute distress. The following is a focused right lower extremity exam. VASCULAR: Dorsalis pedis palpable +2, posterior tibial arteries palpable +2. Capillary refill time less than 3 seconds to the distal fifth toe and amputation site of the second toe. Calf is supple and nontender proximally and distally. Decreased pedal hair growth. Focal edema to the right fourth toe. NEUROLOGICAL: Protective sensation intact 0/10 sites, tested with Vale Michaela monofilament to bilateral feet. DERMATOLOGICAL: Full-thickness wound at the distal tuft of the right fourth toe has fibrotic buildup and probes directly to bone. There is mild malodor and mild purulence at the right fourth toe wound without significant erythema. No proximal lymphangitic streaking. MUSCULOSKELETAL: Status post left below-knee amputation. Status post right hallux amputation. Status post right third toe amputation. Partial rotation of the right second toe. No pain with debridement or palpation secondary to neuropathy. Data Micro: Micro: Microbiology 01/16/21 08:24 Gram Stain - Final Leg - #1 01/14/21 15:20 Urine Culture - Pr eliminary Urine,Clean Catch Gram Negative R ods A&P Assessment and plan (1) Diabetes mellitus type 1: Status: Chronic Qualifiers: Diabetes mellitus complication status: with hyperglycemia Qualified Code(s): E10.65 - Type 1 diabetes mellitus with hyperglycemia (2) 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: Status: Acute Patient is a 40-year-old poorly controlled type I diabetic female with history of left below-knee amputation, history of right hallux amputation and right third toe amputation and partial amputation of the right second toe. She has osteomyelitis of the distal phalanx right fourth toe with a wound probes directly to bone. On lateral view of x-ray there is pathological fracture at the very distal tuft of the phalanx. Patient has acute osteomyelitis. Ordered ESR and CRP. Right fourth toe scrubbed with chlorhexidine and a sterile dermal curette utilized to debride the wound of devitalized epidermis, devitalized dermis, subcutaneous and bone at the distal phalanx right fourth toe. Hemostasis achieved via manual pressure and dressing applied Betadine wet-to-dry. I encouraged the patient to maximize her overall picture of health with controlling her diabetes and establishing and following up with primary care on a regular basis. In regards to her right fourth toe acute osteomyelitis I informed her that the infection was extending directly to bone. She is very familiar with this type of scenario states that she has had many infections in the past and many amputations. I informed the patient that we can pursue limb salvage measures which would consist of debridement, bone culture, long-term antibiotics and wound care follow-up. She is opposed to this. She states that it is better in her social situation to have a more definitive procedure. She does not want a string out care and she is concerned that the infection could spread more into her foot. She is requesting partial amputation of her right fourth toe is very [id number] about the situation. I informed her that partial imitation could still lead to further breakdown, transfer wound, transfer pressure ulceration and further problems in the future also failure to eliminate all the infection with amputation of the toe and still may require further surgical debridement and higher levels of amputation. She expresses understanding and states that her preference is to have part of the toe removed and is ready to move forward at next available opportunity in the operating room. Patient will be scheduled for partial right fourth toe amputation at next availability in the operating room hopefully tomorrow at noon 01/17/2021 Consult Attestations Medical Necessity Statement: Acute osteomyelitis right fourth toe 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 Code Acute Airport Tower Controller for Kim Mitchell Diagnoses Diabetes mellitus type 1 E10.65 Diabetes mellitus complication status: with hyperglycemia 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 L97.514 Comment CPT code 62149
[2021-01-16 13:38] LABS: C Reactive Protein 16.8 mg/L (0.0-4.9)
--- NOTE | 2021-01-16 13:52 | PM.NPN ---
Subjective NPU Subjective: Interval history: Cherrie presented today reporting that she is doing okay after her recent procedure. Is been mostly time talking about the doctors interested in revising her amputation on her left leg possibly going above the knee. She was fairly open to the conversation and only asked that he need to take it above the knee. We discussed the fact that it is understood that she would prefer not to do that but the hope would be to do what is best for her health which she understood. She seemed to be recovering from the procedure and not focus so much of pain. Still having some anxiety and her blood pressure was elevated and we discussed that risk-benefit and alternatives of starting propranolol 10 mg p.o. 3 times daily and she understood and agreed proceed as is documented in this note. Mental Status Exam MSE Comments: This is an overweight white female with limited dress, grooming and eye contact. With notable below-knee amputation on her left leg, standing at her bedside. No abnormal movements except for psychomotor retardation. Mostly cooperative with exam in no acute distress. Speech was decreased rate and volume. Mood described as okay, affect somewhat somnolent. Thought process organized. Thought content: Patient denied suicidal ideation or, homicidal ideation, there were no delusions reported or noted, there and she denied auditory or visual hallucinations. Attention and concentration were intact and memory appeared reliable but none were formally tested. She is alert and oriented x3. Insight and judgment are limited, but improving and impulse control is limited. Vitals/I&O/Wt Last Vital Signs Temp 97.7 F 01/16/21 12:15 Pulse 81 01/16/21 12:15 Resp 17 01/16/21 12:15 BP 156/100 01/16/21 12:15 Pulse Ox 100 01/16/21 12:15 01/15/21 01/16/21 01/16/21 22:59 06:59 14:59 Intake Total 1120 / 2475.833 1150 / 1150 Output Total 2510 / 2510 Balance 1120 / 2475.833 -1360 / -1360 Weight last 48 hrs Weight 87.226 kg Data NPU : 01/17/21 05:52 01/17/21 05:52 Micro: Microbiology 01/16/21 08:24 Gram Stain - Final Leg - #1 01/14/21 15:20 Urine Culture - Preliminary Urine,Clean Catch Gram Negative Rods Microbiology 01/16/21 08:24 Leg - #1 Gram Stain - Final 01/14/21 15:20 Urine,Clean Catch Urine Culture - Preliminary Gram Negative Rods A&P Additional A&P Information Document: NPU Progress Note A&P Additional A&P Information (1) Gastroparesis: (2) FIONA (acute kidney injury): (3) Depression: (4) Suicide attempt: (5) Low back pain: (6) Amputation stump pain: (7) Pain of amputation stump of left lower extremity: (8) History of financial difficulties: (9) Hypertension: (10) Diabetes mellitus type 1: (11) Diabetic gastroparesis: (12) PTSD (post-traumatic stress disorder): Additional A&P Information This is a 40-year-old white female with a long history of mental health, trauma, possible cluster B personality disorder and medical issues with frequent hospitalizations and emergency room visits who presents endorsing that her pain has become significant enough that she rather endorsing a suicide attempt without clear evidence. 1. Continue current medication. Except start propranolol 20 mg p.o. 3 times daily. 2. continue 1-1. May use restraints if necessary to protect self directed aggression. 3. Return to NPU when medically cleared. Involuntary Hold Information 96 Hour Hold: 96 Hour Involuntary Admission: No Attestations NPU Medical Necessity Statement*: N/A. Please see primary team note for Medical necessity. However return to Inpatient psychiatric unit when medically cleared. 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 Code Acute Dance Studio Manager for Kim Mitchell
[2021-01-16 15:10] LABS: Erythrocyte Sedimentation Rate 59 mm/hr (0-15)
--- NOTE | 2021-01-16 15:31 | PC.NURSE ---
rcvd verbal order from Dr Holley for Colace and Miralax. Senior C Software Developer put orders in.
--- NOTE | 2021-01-16 15:31 | PC.NURSE ---
commercial underwriter roshan verbal order from Dr Friedman to place Lidocaine patch on patient's right lower abdomen. commercial underwriter placed order
[2021-01-16] MEDS: polyethylene glycol 3350 Pkt 17 gm PO (15:41)
[2021-01-16] MEDS: propranolol 20 mg Tablet PO ×2 (15:41→22:53)
[2021-01-16] MEDS: lidocaine 5% Patch 1 PATCH TOPICAL ×2 (15:41→21:26)
[2021-01-16 16:38] LABS: Glucose Point of Care 108 mg/dL (70-110)
[2021-01-16] MEDS: cefdinir 300 MG CAPSULE PO (17:22)
[2021-01-16] MEDS: docusate sodium 100 mg Capsule 200 MG PO (17:22)
--- NOTE | 2021-01-16 19:48 | P.PN_ITS ---
Subjective Subjective: Interval history: Feeling slightly better. Still having nausea, after debridement of the left stump wound necrotic tissue feeling some pain there. Some pain in her lower back. Vitals/I&O/Wt Last Vital Signs Temp 98.0 F 01/16/21 16:00 Pulse 85 01/16/21 16:00 Resp 17 01/16/21 16:00 BP 182/100 01/16/21 16:00 Pulse Ox 99 01/16/21 16:00 01/16/21 01/16/21 01/16/21 06:59 14:59 22:59 Intake Total 1150 / 1150 Output Total 2510 / 2510 1200 / 3710 Balance -1360 / -1360 -1200 / -2560 Weight last 48 hrs Weight 87.226 kg Physical Exam Const: COMMON NORMALS: no acute distress and patient oriented x3 EXAM LIMITATIONS: behavioral limitations GENERAL APPEARANCE: cooperative, comfortable and disheveled OTHER: Reclined in bed, appears comfortable, inter acting, cooperative. HENMT: COMMON NORMALS: oropharynx normal Neck/C-Spine: COMMON NORMALS: no JVD Resp: COMMON NORMALS: normal respiratory effort and clear to auscultation bilaterally AUSCULTATION: clear to auscultation bilaterally Cardio: COMMON NORMALS: no JVD, regular rhythm, S1 normal heart sound present, S2 normal heart sound present and No murmurs present (Cardio) RHYTHM: regular rhythm HEART SOUNDS: S1 normal heart sound present and S2 normal heart sound present GI: COMMON NORMALS: Normal to inspection, nondistended, normoactive bowel sounds present, Soft to palpation and non-tender PALPATION: Yes Soft to palpation Extremity: COMMON NORMALS: no joint enlargement and no pedal edema OTHER: Left BKA. Right foot toe amputations. Neuro: COMMON NORMALS: patient oriented x3 and moves all extremities Skin: COMMON NORMALS: no rashes or lesions noted GENERAL SKIN EXAM: no rashes or lesions noted LESIONS: other (Excoriations on forearms and wrists. Excoriations on right foot/ankle. ) OTHER: Laceration, necrosis of right toe with bone exposure, foul-smelling drainage. Wound L BKA - ulceration w minimal necrosis, no sign surrounding erythema. Undermining. Data : 01/16/21 07:16 01/16/21 07:16 Micro: Microbiology 01/16/21 08:24 Gram Stain - Final Leg - #1 01/14/21 15:20 Urine Culture - Preliminary Urine,Clean Catch Gram Negative Rods A&P Assessment and plan (1) Toe infection: Laceration, necrotic tissue with foul smell, drainage,, bone exposure, pathological fracture of fourth right toe. Osteomyelitis. With underlying diabetes, risk of spread of infection. Appreciate podiatry assessment. Doxycycline, Levaquin by mouth at this time as she kept disconnecting her IV. Status: Acute (2) Non-healing wound of amputation stump: Underwent debridement today of necrotic tissue, undermining of left stump wound. Additional staged procedure for revision of the stump closure was considered by her with Dr. Holley, and may be planned for when she is overall doing somewhat better and in a more stable condition with regards to her depression, renal function and other problems. X-ray of left stump nonacute. No bone probed during procedure. Once more stable consideration may be additionally given to additional assessment by MRI. Previously history of osteomyelitis. Antibiotic coverage expanded with doxycycline, Levaquin. She continues to disconnect her IV, so continue oral antibiotic only for now. Status: Acute (3) Suicide attempt: Continue care by psychiatry. One-to-one supervision. Resume hospitaliza tion on neuropsychiatric unit once medical issues under better control. Status: Acute (4) FIONA (acute kidney injury): Resolving. Creatinine down to 1.1. Continue gentle IV rehydration as she will allow. Continue to hold lisinopril, NSAIDs. Due to urinary tension cyclobenzaprine, Phenergan were held. Hold donepezil. Retention appears to have improved on repeat bladder scan. Bladder scan, straight cath as needed. No obstruction noted on ultrasonography. Acute kidney injury on chronic kidney disease. Possibly secondary to Bactrim. Appears she also may be taking meloxicam at home. Status: Acute (5) Low back pain: CT thoracic, lumbar spine, noncontrast due to FIONA, without gross abnormality. Suspicion of hematogenous infection dissemination is low with negative blood culture, no systemic signs of sepsis. MRSA growing from stump. Status: Acute (6) Gastroparesis: Status: Acute (7) Depression: As above. Status: Acute (8) Diabetes mellitus type 1: Glucose appears well controlled. Continue insulin. Status: Chronic Qualifiers: Diabetes mellitus complication status: with hyperglycemia Qualified Code(s): E10.65 - Type 1 diabetes mellitus with hyperglycemia Additional A&P Information Behavioral disturbance: Appreciate psychiatry recommendations. Currently appears more comfortable, behaviorally doing better. Prior to 01/15 extremely uncooperative, disconnecting her IV, going or crawling to the shower, with continued episodes of attempted self-harm, pulling out her hair, trying to hit her head on objects, scratching herself, requiring constant supervision by staff, redirection. Has good awareness of where she is and what is going on. Abdominal pain: Right lower quadrant discomfort, appears to be reporting pain with even light pressure or pain to of the abdominal skin fold. Does not appear to be related to internal abdominal component, with previously multiple abdominal CT scans without suspicious findings. At this time will relocate lidocaine patch to right lower quadrant, give additional gabapentin dose. Continue home dose gabapentin. Heating pad. Consider other additional measures depending on response. Gastritis: Managed during recent admission. Continues on PPI twice daily. Chronic anemia History of hypertension: With known labile blood pressures. Soft blood pressu res resolved. Now again poorly controlled hypertension. Continue carvedilol. Increase dose of amlodipine. Attestations Medical Necessity Statement*: Continue admission for assessment management of fourth right toe infection with osteomyelitis, suicidal ideation and attempt, depression, resolving FIONA. Optimization of control of hypertension. 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 Code Acute Seasonal Package Handler for Kim Mitchell Diagnoses Toe infection L08.9 Non-healing wound of amputation stump T87.89 Suicide attempt T14.91XA FIONA (acute kidney injury) N17.9 Low back pain M54.5 Gastroparesis K31.84 Depression F32.9 Diabetes mellitus type 1 E10.65 Diabetes mellitus complication status: with hyperglycemia
[2021-01-16 20:52] LABS: Glucose Point of Care 118 mg/dL (70-110)
[2021-01-16] MEDS: insulin glargine 100 units/1 mL 5 UNIT SUBCUT (21:25)
[2021-01-16] MEDS: BuSPIRONE 10 mg Tablet 15 MG PO (22:50)
[2021-01-16] MEDS: potassium chloride ER 20 mEq Tablet PO (22:50)
[2021-01-16] MEDS: carvedilol 12.5 mg Tablet PO (22:51)
[2021-01-16] MEDS: duloxetine 20 mg Capsule PO (22:52)
[2021-01-16] MEDS: gabapentin 100 mg Capsule PO (22:52)
[2021-01-16] MEDS: doxycycline 100 mg Tablet PO (22:52)
[2021-01-16] MEDS: pantoprazole DR 40 mg Tablet PO (22:53)
[2021-01-17] VITALS (7 sets, daily range): BP systolic 130–170; BP diastolic 81–105; PULSE 79–85; RESP 15–22; TEMP 36.6–37.1; O2SAT 96–98
[2021-01-17] MEDS: sodium chloride 0.9% 1,000 ML 30 ML IV (01:05)
[2021-01-17] MEDS: HYDROmorphone 1 mg/mL INJ 1 mL 0.4 MG IVP ×3 (02:46→13:39)
[2021-01-17] MEDS: carvedilol 12.5 mg Tablet PO ×2 (05:24→20:42)
[2021-01-17 06:15] LABS: Basophils % 0.5 %; Eosinophils # 0.1 10^3/uL (0.0-0.8); Eosinophils % 1.2 %; Hematocrit 35.1 % (37.0-47.0); Hemoglobin 11.2 g/dL (11.5-15.3); Lymphocytes # 1.6 10^3/uL (0.8-4.8); Lymphocytes % 20.3 %; Mean Corpuscular HGB Conc 31.9 g/dL (30.0-36.0); Mean Corpuscular Hemoglobin 27.4 pg (28.0-34.0); Mean Corpuscular Volume 85.8 fL (81-99); Mean Platelet Volume 8.4 fL (7.4-10.4); Monocytes # 0.5 10^3/uL (0.2-0.9); Monocytes % 5.8 %; Neutrophils % 71.9 %; Nucleated Red Blood Cells % 0 %; Platelet Count 549 10^3/cmm (130-400); Red Blood Count 4.09 10^6/uL (4.1-5.3); Red Cell Distribution Width 13.2 % (12.1-15.1); White Blood Count 7.8 10^3/uL (4.0-10.0)
[2021-01-17 06:41] LABS: Alanine Aminotransferase 8 U/L (0-33); Albumin Level 3.5 g/dL (3.5-5.2); Alkaline Phosphatase 112 IU/L (35-105); Aspartate Amino Transferase 11 U/L (0-32); Blood Urea Nitrogen 14 mg/dL (6-20); Calcium 8.9 mg/dL (8.5-10.5); Carbon Dioxide 22 mmol/L (22-29); Chloride 102 mmol/L (98-107); Globulin 3.6 g/dL (1.3-4.6); Glomerular Filtration Rate 54.5 mL/min (90-130); Glucose 129 mg/dL (65-115); Osmolality Calculated 286 mOsm/kg (285-295); Sodium 137 mmol/L (136-145); Total Bilirubin 0.4 mg/dL (0.15-1.2); Total Protein 7.1 g/dL (6.6-8.7)
[2021-01-17 06:45] LABS: Anion Gap 16.9 (5-19); Potassium 3.9 mmol/L (3.5-5.1)
[2021-01-17 06:49] LABS: Glucose Point of Care 121 mg/dL (70-110)
[2021-01-17] MEDS: amlodipine 10 mg Tablet PO (08:06)
[2021-01-17] MEDS: propranolol 20 mg Tablet PO ×3 (08:17→20:41)
--- NOTE | 2021-01-17 09:01 | PC.NURSE ---
AM MEDICATION NOTE PT ADAMANTLY REFUSES ALL AM MEDS - ATTEMPTED TO GIVE AM ANTIBIOTICS WITH SMALL SIPS OF WATER - PT REFUSES - EDUCATED TO IMPORTANCE OF MEDS - PT STATES I WONT TAKE ANY MEDICATIONS UNTIL I CAN EAT - DID GET PATIENT TO AGREE TO TAKE AM BP MEDS WITH SMALL SIP OF WATER DUE TO HYPERTENSION
[2021-01-17 11:48] LABS: Glucose Point of Care 132 mg/dL (70-110)
[2021-01-17] MEDS: collagenase oint 30 gm 1 APPLIC TOPICAL (14:21)
--- NOTE | 2021-01-17 14:53 | PC.NURSE ---
DR BONILLA PER THIS NURSE - QUESTIONED PT REGARDING SELF HARM DUE TO 96 HOUR HOLD EXPIRING - PT STATES I DON'T KNOW IF I'LL HURT MYSELF OR NOT - IF MY PAIN GETS BAD - I WILL DR MADE AWARE OF PTS STATEMENT
--- NOTE | 2021-01-17 16:07 | P.PN_ITS ---
Subjective NPU Subjective: Interval history: Cherrie presented today reporting that she is doing a little better. She is dealing with the recent surgery that she had and having some improvement in her thinking she reports we discussed the likelihood is that she more or less has been so focused on her medical condition as she was not really thinking about the other things but again today says identifying that her pain management is better. She agreed to return to the unit with a plan to be placed n.p.o. tomorrow night and return for revision surgery morning. Mental Status Exam MSE Comments: This is an overweight white female with limited dress, grooming and eye contact. With notable below-knee amputation on her left leg, standing with the assistance of a walker. No abnormal movements except for psychomotor retardation. Mostly cooperative with exam in no acute distress. Speech was decreased rate and volume. Mood described as okay, affect somewhat somnolent. Thought process organized. Thought content: Patient denied suicidal ideation or, homicidal ideation, there were no delusions reported or noted, there and she denied auditory or visual hallucinations. Attention and concentration were intact and memory appeared reliable but none were formally tested. She is alert and oriented x3. Insight and judgment are limited, but improving and impulse control is limited. Vitals/I&O/Wt Last Vital Signs Temp 98.0 F 01/17/21 21:30 Pulse 82 01/17/21 21:30 Resp 18 01/17/21 21:30 BP 130/81 01/17/21 21:30 Pulse Ox 98 01/17/21 21:30 01/17/21 01/17/21 01/18/21 14:59 22:59 06:59 Intake Total 120 / 120 1120 / 1240 Output Total 100 / 100 250 / 350 Balance 870 / 890 Data NPU : 01/17/21 05:52 01/17/21 05:52 Micro: Microbiology 01/16/21 08:24 Gram Stain - Final Leg - #1 Tissue Culture - Preliminary 01/14/21 15:20 Urine Culture - Final Urine,Clean Catch Escherichia coli Microbiology 01/16/21 08:24 Leg - #1 Gram Stain - Final 01/16/21 08:24 Leg - #1 Tissue Culture - Preliminary 01/14/21 15:20 Urine,Clean Catch Urine Culture - Final Escherichia coli A&P Additional A&P Information (1) Gastroparesis: (2) FIONA (acute kidney injury): (3) Depression: (4) Suicide attempt: (5) Low back pain: (6) Amputation stump pain: (7) Pain of amputation stump of left lower extremity: (8) History of financial difficulties: (9) Hypertension: (10) Diabetes mellitus type 1: (11) Diabetic gastroparesis: (12) PTSD (post-traumatic stress disorder): Additional A&P Information This is a 40-year-old white female with a long history of mental health, trauma, possible cluster B personality disorder and medical issues with frequent hospitalizations and emergency room visits who presents endorsing that her pain has become significant enough that she rather endorsing a suicide attempt without clear evidence. 1. Continue current medication. Except increase Cymbalta to 30 mg p.o. twice daily 2. continue 1-1 given her wraps around her injury sites on her right foot and left stump. 3. Return to NPU when medically cleared with a plan to monitor her for safety through early morning and if she continues to function well and denied safety issues plan will be to discharge after surgery on . 4. Encourage individual, group and milieu therapies. 5. We will ensure she has appropriate mental health follow-up by tomorrow. Involuntary Hold Information 96 Hour Hold: 96 Hour Involuntary Admission: No Attestations NPU Medical Necessity Statement*: Inpatient hospitalization is medically necessary and the clinically appropriate intervention at this time. We will monitor medications and make changes as indicated. Likely length of stay 2 days. 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 Code Acute Igniter Capper for Kim Mitchell
[2021-01-17] MEDS: phenazopyridine 100 mg Tablet PO (16:35)
[2021-01-17] MEDS: cefdinir 300 MG CAPSULE PO (16:35)
[2021-01-17] MEDS: docusate sodium 100 mg Capsule 200 MG PO (16:35)
[2021-01-17 16:51] LABS: Glucose Point of Care 128 mg/dL (70-110)
--- NOTE | 2021-01-17 16:56 | PC.NURSE ---
DR DUKE WALL AT PTS SIDE DISCUSSING CONCERNS - PT UP IN ROOM - DR WALL AND DR BONILLA DISCUSSING PLAN OF CARE
--- NOTE | 2021-01-17 17:29 | PM.PN ---
Subjective Subjective: Interval history: Overall seems to be doing better, dressing has been changed by the nursing staff. No acute events overnight Medications: Reviewed: Yes Vitals/I&O/Wt Last Vital Signs Temp 98 F 01/17/21 16:00 Pulse 85 01/17/21 16:00 Resp 16 01/17/21 16:00 BP 138/88 01/17/21 16:00 Pulse Ox 96 01/17/21 16:00 01/17/21 01/17/21 01/17/21 06:59 14:59 22:59 Intake Total 120 / 120 120 / 240 Output Total 500 / 4210 100 / 100 250 / 350 Balance -500 / -3060 20 / 20 -130 / -110 Physical Exam Narrative: EXAM NARRATIVE: Patient is conscious alert oriented X3 BMI 28.4 Left lower extremity below the knee stump dressing in place without complication Data : 01/17/21 05:52 01/17/21 05:52 Micro: Microbiology 01/16/21 08:24 Gram Stain - Final Leg - #1 Tissue Culture - Preliminary 01/14/21 15:20 Urine Culture - Final Urine,Clean Catch Escherichia coli A&P Assessment and plan (1) Non-healing wound of amputation stump: Continue daily packing of the wound with wet-to-dry 1 inch Nu Gauze using saline followed by ABD and Miguel A wrap After this hospitalization patient is encouraged to follow-up at the wound care center on a weekly basis Optimize nutrition to help with the healing process We will continue coordinating with the hospitalist and psych services Assurance and education All questions have been answered and all concerns have been addressed to patient's satisfaction. Status: Chronic Attestations Medical Necessity Statement*: Continue inpatient hospitalization passing 2 midnights for medical and surgical care Time Spent in Patient Care: (>than 50% of time spent in counselling and/or direct pt care on unit). 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 Code Acute Product Analyst for [facility] Fwd Diagnoses Non-healing wound of amputation stump T87.89
--- NOTE | 2021-01-17 17:39 | PM.PN ---
Subjective Subjective: Interval history: Hospital course, labs appreciated. No acute events overnight. Patient was due for amputation today but had to be canceled because of over scheduling. Patient is due for the OR on . On examination patient states she is feeling little better. Denies any nausea, pain in the belly little better better than before. Patient states she does not have any active suicidal ideation for now but if she is in pain she will commit suicide again. Vitals/I&O/Wt Last Vital Signs Temp 98 F 01/17/21 16:00 Pulse 85 01/17/21 16:00 Resp 16 01/17/21 16:00 BP 138/88 01/17/21 16:00 Pulse Ox 96 01/17/21 16:00 01/17/21 01/17/21 01/17/21 06:59 14:59 22:59 Intake Total 120 / 120 120 / 240 Output Total 500 / 4210 100 / 100 250 / 350 Balance -500 / -3060 20 / 20 -130 / -110 Physical Exam Const: COMMON NORMALS: no acute distress and patient oriented x3 EXAM LIMITATIONS: behavioral limitations GENERAL APPEARANCE: cooperative, comfortable and disheveled OTHER: Reclined in bed, appears comfortable, interacting, cooperative. HENMT: COMMON NORMALS: oropharynx normal Neck/C-Spine: COMMON NORMALS: no JVD Resp: COMMON NORMALS: normal respiratory effort and clear to auscultation bilaterally AUSCULTATION: clear to auscultation bilaterally Cardio: COMMON NORMALS: no JVD, regular rhythm, S1 normal heart sound present, S2 normal heart sound present and No murmurs present (Cardio) RHYTHM: regular rhythm HEART SOUNDS: S1 normal heart sound present and S2 normal heart sound present GI: COMMON NORMALS: Normal to inspection, nondistended, normoactive bowel sounds present, Soft to palpation and non-tender PALPATION: Yes Soft to palpation Extremity: COMMON NORMALS: no joint enlargement and no pedal edema OTHER: Left BKA. Right foot toe amputations. Neuro: COMMON NORMALS: patient oriented x3 and moves all extremities Skin: COMMON NORMALS: no rashes or lesions noted GENERAL SKIN EXAM: no rashes or lesions noted LESIONS: other (Excoriations on forearms and wrists. Excoriations on right foot/ankle. ) OTHER: Laceration, necrosis of right toe with bone exposure, foul-smelling drainage. Wound L BKA - ulceration w minimal necrosis, no sign surrounding erythema. Undermining. Data : 01/17/21 05:52 01/17/21 05:52 Micro: Microbiology 01/16/21 08:24 Gram Stain - Final Leg - #1 Tissue Culture - Preliminary 01/14/21 15:20 Urine Culture - Final Urine,Clean Catch Escherichia coli Microbiology 01/16/21 08:24 Leg - #1 Gram Stain - Final 01/16/21 08:24 Leg - #1 Tissue Culture - Preliminary 01/14/21 15:20 Urine,Clean Catch Urine Culture - Final Escherichia coli A&P Assessment and plan (1) Toe infection: Laceration, necrotic tissue with foul smell, drainage,, bone exposure, pathological fracture of fourth right toe. Osteomyelitis. With underlying diabetes, risk of spread of infection. Appreciate podiatry assessment. Plan for amputation on . Continue with doxycycline and cefdinir. Most likely patient would need oral antibiotics for 4 weeks. Status: Acute (2) Non-healing wound of amputation stump: Underwent debridement of necrotic tissue, undermining of left stump wound. Additional staged procedure for revision of the stump closure was considered by her with Dr. Holley, and may be planned for when she is overall doing somewhat better and in a more stable condition with regards to her depression, renal function and other problems. X-ray of left stump nonacute. No bone probed during procedure. Once more stable consideration may be additionally given to additional assessment by MRI. Previously history of osteomyelitis. Antibiotic coverage expanded with doxycycline, cefdinir. She continues to disconnect her IV, so continue oral antibiotic only for now. Status: Chronic (3) Suicide attempt: Continue care by psychiatry. One-to-one supervision. Resume hospitalization on neuropsychiatric unit once medical issues under better control. Status: Acute (4) FIONA (acute kidney injury): Resolving. Creatinine down to 1.1 and stable. Continue to hold lisinopril, NSAIDs. Due to urinary tension cyclobenzaprine, Phenergan were held. Hold donepezil. Retention appears to have improved on repeat bladder scan. Bladder scan, straight cath as needed. No obstruction noted on ultrasonography. Acute kidney injury on chronic kidney disease. Possibly secondary to Bactrim. Appears she also may be taking meloxicam at home. Status: Acute (5) Low back pain: CT thoracic, lumbar spine, noncontrast due to FIONA, without gross abnormality. Suspicion of hematogenous infection dissemination is low with negative blood culture, no systemic signs of sepsis. MRSA growing from stump. Status: Acute (6) Gastroparesis: Status: Acute (7) Depression: As above. Status: Acute (8) Diabetes mellitus type 1: Glucose appears well controlled. Continue insulin. Status: Chronic Qualifiers: Diabetes mellitus complication status: with hyperglycemia Qualified Code(s): E10.65 - Type 1 diabetes mellitus with hyperglycemia Additional A&P Information Behavioral disturbance: Appreciate psychiatry recommendations. Currently appears more comfortable, behaviorally doing better. Prior to 01/15 extremely uncooperative, disconnecting her IV, going or crawling to the shower, with continued episodes of attempted self-harm, pulling out her hair, trying to hit her head on objects, scratching herself, requiring constant supervision by staff, redirection. Has good awareness of where she is and what is going on. Abdominal pain: Right lower quadrant discomfort, appears to be reporting pain with even light pressure or pain to of the abdominal skin fold. Does not appear to be related to internal abdominal component, with previously multiple abdominal CT scans without suspicious findings. At this time will relocate lidocaine patch to right lower quadrant, give additional gabapentin dose. Continue home dose gabapentin. Heating pad. Consider other additional measures depending on response. Gastritis: Managed during recent admission. Continues on PPI twice daily. Chronic anemia History of hypertension: With known labile blood pressures. Soft blood pressures resolved. Now again poorly controlled hypertension. Continue carvedilol. Increase dose of amlodipine. Patient will be transferred over to neuropsych velasquez for further management of suicidal ideation. Patient to continue oral antibiotics for 4 weeks. Patient is due for amputation with Dr. Sin on . N.p.o. after midnight on Saturday. Continue current antihypertensives. Attestations Medical Necessity Statement*: Patient requires further hospitalization for suicide attempt, suicidal ideation, to infection with the possibility of osteomyelitis requiring amputation Time Spent in Patient Care: Greater than 35 minutes (>than 50% of time spent in counselling and/or direct pt care on unit). 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 Code Acute Non Profit Financial Controller for Kim Mitchell Diagnoses Toe infection L08.9 Non-healing wound of amputation stump T87.89 Suicide attempt T14.91XA FIONA (acute kidney injury) N17.9 Low back pain M54.5 Gastroparesis K31.84 Depression F32.9 Diabetes mellitus type 1 E10.65 Diabetes mellitus complication status: with hyperglycemia
--- NOTE | 2021-01-17 18:34 | PC.NURSE ---
REPORT CALLED TO NPU REPORT CALLED TO [facility]ED DAVALOS - BOTH [facility] AND DAYSHIFT CHARGE NURSE STATE ROOM IS NOT READY - HEALTH CARE ANALYST AWARE
[2021-01-17 20:29] LABS: Glucose Point of Care 153 mg/dL (70-110)
[2021-01-17] MEDS: duloxetine 20 mg Capsule PO (20:41)
[2021-01-17] MEDS: doxycycline 100 mg Tablet PO (20:41)
[2021-01-17] MEDS: pantoprazole DR 40 mg Tablet PO (20:42)
[2021-01-17] MEDS: BuSPIRONE 10 mg Tablet 15 MG PO (20:42)
[2021-01-17] MEDS: gabapentin 100 mg Capsule PO (20:43)
[2021-01-17] MEDS: insulin glargine 100 units/1 mL 5 UNIT SUBCUT (20:44)
[2021-01-17] MEDS: lidocaine 5% Patch 1 PATCH TOPICAL (20:44)
[2021-01-17] MEDS: HYDROcodone-acetaminophen 5-325 mg Tablet 1 TAB PO (22:06)
[2021-01-17] MEDS: trazodone 50 mg Tablet PO (22:06)
--- NOTE | 2021-01-17 22:08 | PC.NURSE ---
PT ARRIVED TO OUR UNIT VIA WHEELCHAIR FROM MED/SURG. PT ASSISTED TO BED PER STAFF. ASSISTED INTO UNIT SCRUBS PER STAFF. PT NOTED TO HAVE DRESSINGS TO LEFT BKA STUB AND TO RIGHT FOOT.
[2021-01-18] MEDS: HYDROcodone-acetaminophen 5-325 mg Tablet 1 TAB PO ×3 (05:38→20:45)
[2021-01-18] MEDS: lidocaine 5% Patch 1 PATCH TOPICAL ×2 (05:52→21:00)
[2021-01-18 06:00] VITALS: BP 143/87; PULSE 92; RESP 22; TEMP 36.6; O2SAT 97
[2021-01-18 07:00] LABS: Glucose Point of Care 113 mg/dL (70-110)
[2021-01-18 07:51] LABS: Basophils % 0.4 %; Eosinophils # 0.1 10^3/uL (0.0-0.8); Eosinophils % 1.1 %; Hematocrit 34.4 % (37.0-47.0); Lymphocytes # 1.5 10^3/uL (0.8-4.8); Lymphocytes % 16.8 %; Mean Corpuscular Hemoglobin 27.5 pg (28.0-34.0); Monocytes # 0.5 10^3/uL (0.2-0.9); Monocytes % 5.8 %; Neutrophils # 6.71 10^3/uL (1.8-7.7); Neutrophils % 75.5 %; Nucleated Red Blood Cells % 0 %; Platelet Count 475 10^3/cmm (130-400); Red Cell Distribution Width 13.2 % (12.1-15.1); White Blood Count 8.9 10^3/uL (4.0-10.0)
[2021-01-18 08:08] LABS: Alanine Aminotransferase < 5 U/L (0-33); Albumin Level 3.2 g/dL (3.5-5.2); Alkaline Phosphatase 103 IU/L (35-105); Anion Gap 16.5 (5-19); Aspartate Amino Transferase 12 U/L (0-32); Blood Urea Nitrogen 14 mg/dL (6-20); Carbon Dioxide 22 mmol/L (22-29); Chloride 98 mmol/L (98-107); Globulin 3.8 g/dL (1.3-4.6); Glomerular Filtration Rate 60.8 mL/min (90-130); Glucose 115 mg/dL (65-115); Osmolality Calculated 277 mOsm/kg (285-295); Potassium 3.5 mmol/L (3.5-5.1); Sodium 133 mmol/L (136-145); Total Bilirubin 0.4 mg/dL (0.15-1.2)
[2021-01-18] MEDS: doxycycline 100 mg Tablet PO ×2 (08:54→20:21)
[2021-01-18] MEDS: propranolol 20 mg Tablet PO ×3 (08:54→20:22)
[2021-01-18] MEDS: citalopram 20 mg Tablet PO (08:54)
[2021-01-18] MEDS: amlodipine 10 mg Tablet PO (08:54)
[2021-01-18] MEDS: pantoprazole DR 40 mg Tablet PO ×2 (08:54→20:23)
[2021-01-18] MEDS: BuSPIRONE 10 mg Tablet 15 MG PO ×2 (08:54→20:22)
[2021-01-18] MEDS: docusate sodium 100 mg Capsule 200 MG PO ×2 (08:55→20:23)
[2021-01-18] MEDS: gabapentin 100 mg Capsule PO ×2 (08:55→20:21)
[2021-01-18] MEDS: duloxetine 20 mg Capsule PO (08:55)
[2021-01-18] MEDS: carvedilol 12.5 mg Tablet PO ×2 (09:56→20:21)
[2021-01-18] MEDS: cefdinir 300 MG CAPSULE PO ×2 (09:56→20:24)
[2021-01-18] MEDS: phenazopyridine 100 mg Tablet PO ×3 (09:57→17:43)
--- NOTE | 2021-01-18 10:03 | PC.NURSE ---
PT REFUSED SCHEDULED QUESTRAN POWDER THIS MORNING, PT STATED NO I DON'T DRINK THAT
--- NOTE | 2021-01-18 10:12 | P.PN_ITS ---
Subjective NPU Subjective: Interval history: Cherrie presents today endorsing that she is in some pain. She was somewhat distorted lying on her bed. She once again expressed concerns that her pain would not be managed appropriately and we discussed the importance of crossing that reason she comes to it. She was telling the nursing staff that the nonnarcotic medications were not effective. Otherwise she reported that she is tolerating the increase in the Cymbalta to 30 mg p.o. twice daily. We reviewed the plan for being n.p.o. tonight, surgery tomorrow followed by discharge if there are no issues. She understood and agreed to proceed with this plan. Mental Status Exam MSE Comments: This is an overweight white female with limited dress, grooming and eye contact. With notable below-knee amputation on her left leg. No abnormal movements except for psychomotor retardation. Mostly cooperative with exam in mild distress. Speech was decreased rate and volume. Mood described as in pain, affect somewhat somnolent. Thought process organized. Thought content: Patient denied suicidal ideation or, homicidal ideation, there were no delusions reported or noted, there and she denied auditory or visual hallucinations. Attention and concentration were intact and memory appeared reliable but none were formally tested. She is alert and oriented x3. Insight and judgment are limited, but improving and impulse control is limited. Vitals/I&O/Wt Last Vital Signs Temp 98 F 01/18/21 06:00 Pulse 92 01/18/21 06:00 Resp 22 H 01/18/21 06:00 BP 143/87 01/18/21 06:00 Pulse Ox 97 01/18/21 06:00 Data NPU : 01/19/21 05:42 01/18/21 07:31 Micro: Microbiology 01/16/21 08:24 Gram Stain - Final Leg - #1 Tissue Culture - Preliminary Strep agalactiae - (group b) Microbiology 01/16/21 08:24 Leg - #1 Gram Stain - Final 01/16/21 08:24 Leg - #1 Tissue Culture - Preliminary Strep agalactiae - (group b) A&P Additional A&P Information (1) Gastroparesis: (2) FIONA (acute kidney injury): (3) Depression: (4) Suicide attempt: (5) Low back pain: (6) Amputation stump pain: (7) Pain of amputation stump of left lower extremity: (8) History of financial difficulties: (9) Hypertension: (10) Diabetes mellitus type 1: (11) Diabetic gastroparesis: (12) PTSD (post-traumatic stress disorder): Additional A&P Information This is a 40-year-old white female with a long history of mental health, trauma, possible cluster B personality disorder and medical issues with frequent hospitalizations and emergency room visits who presents endorsing that her pain has become significant enough that she rather endorsing a suicide attempt without clear evidence. 1. Continue current medication. 2. continue 1-1 given her wraps around her injury sites on her right foot and left stump. 3. Patient to go n.p.o. tonight and if she is managing well with no issues after the surgery discharge to home.. 4. This issue with pain and her connecting it to lethality is likely not going to change. She needs to follow through with the paperwork to put her on Medicaid and then she may have some options in regards to where to go and how to manage her pain. 5. Nutrition is appropriate referral to mental health follow-up. Involuntary Hold Information 96 Hour Hold: 96 Hour Involuntary Admission: No Attestations NPU Medical Necessity Statement*: Inpatient hospitalization is medically necessary and the clinically appropriate intervention at this time. We will monitor medications and make changes as indicated. Likely discharge tomorrow after surgery barring any concerns. 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 Code Acute Applied Marine Physics Professor for Kim Mitchell
[2021-01-18 11:39] LABS: Glucose Point of Care 141 mg/dL (70-110)
[2021-01-18 14:00] VITALS: BP 129/80; PULSE 91; RESP 18; TEMP 36.3; O2SAT 98
[2021-01-18 16:29] LABS: Glucose Point of Care 102 mg/dL (70-110)
--- NOTE | 2021-01-18 17:37 | PC.NURSE ---
Wound Care Left leg stump and right foot wound care done by this nurse and Maite IBARRA per Doctors wound care orders.
[2021-01-18] MEDS: collagenase oint 30 gm 1 APPLIC TOPICAL (17:47)
--- NOTE | 2021-01-18 17:52 | PM.PN ---
Subjective Subjective: Interval history: Patient doing well wishes to proceed with right fourth toe amputation is prepared for this tomorrow morning plans for n.p.o. at midnight. She is wishing for the entire toe to be amputated due to infection including osteomyelitis. Patient denies any subjective nausea, vomiting, fever, chills, shortness of breath or chest pain. Vitals/I&O/Wt Last Vital Signs Temp 97.3 F L 01/18/21 14:00 Pulse 91 01/18/21 14:00 Resp 18 01/18/21 14:00 BP 129/80 01/18/21 14:00 Pulse Ox 98 01/18/21 14:00 Physical Exam Narrative: EXAM NARRATIVE: GENERAL: Patient is alert and oriented ?3 and in no acute distress. The following is a focused right lower extremity exam. VASCULAR: Dorsalis pedis palpable +2, posterior tibial arteries palpable +2. Capillary refill time less than 3 seconds to the distal fifth toe and amputation site of the second toe. Calf is supple and nontender proximally and distally. Decreased pedal hair growth. Focal edema to the right fourth toe. NEUROLOGICAL: Protective sensation intact 0/10 sites, tested with [place] Michaela monofilament to bilateral feet. DERMATOLOGICAL: Full-thickness wound at the distal tuft of the right fourth toe has fibrotic buildup and probes directly to bone. There is mild malodor and mild purulence at the right fourth toe wound without significant erythema. No proximal lymphangitic streaking. MUSCULOSKELETAL: Status post left below-knee amputation. Status post right hallux amputation. Status post right third toe amputation. Partial rotation of the right second toe. No pain with debridement or palpation secondary to neuropathy. Data : 01/18/21 07:31 01/18/21 07:31 Micro: Microbiology 01/16/21 08:24 Gram Stain - Final Leg - #1 Tissue Culture - Preliminary Strep agalactiae - (group b) A&P Assessment and plan (1) Diabetes mellitus type 1: Status: Chronic Qualifiers: Diabetes mellitus complication status: with hyperglycemia Qualified Code(s): E10.65 - Type 1 diabetes mellitus with hyperglycemia (2) 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: Status: Acute Patient is a 40-year-old poorly controlled type I diabetic female with history of left below-knee amputation, history of right hallux amputation and right third toe amputation and partial amputation of the right second toe. She has osteomyelitis of the distal phalanx right fourth toe with a wound probes directly to bone. On lateral view of x-ray there is pathological fracture at the very distal tuft of the phalanx. Patient has acute osteomyelitis. Ordered ESR and CRP. Right fourth toe scrubbed with chlorhexidine and a sterile dermal curette utilized to debride the wound of devitalized epidermis, devitalized dermis, subcutaneous and bone at the distal phalanx right fourth toe. Hemostasis achieved via manual pressure and dressing applied Betadine wet-to-dry. I encouraged the patient to maximize her overall picture of health with controlling her diabetes and establishing and following up with primary care on a regular basis. In regards to her right fourth toe acute osteomyelitis I informed her that the infection was extending directly to bone. She is very familiar with this type of scenario states that she has had many infections in the past and many amputations. I informed the patient that we can pursue limb salvage measures which would consist of debridement, bone culture, long-term antibiotics and wound care follow-up. She is opposed to this. She states that it is better in her social situation to have a more definitive procedure. She does not want a string out care and she is concerned that the infection could spread more into her foot. She is requesting partial amputation of her right fourth toe is very [id number] about the situation. I informed her that partial imitation could still lead to further breakdown, transfer wound, transfer pressure ulceration and further problems in the future also failure to eliminate all the infection with amputation of the toe and still may require further surgical debridement and higher levels of amputation. She expresses understanding and states that her preference is to have part of the toe removed and is ready to move forward at next available opportunity in the operating room. Patient wishes to proceed with right fourth toe amputation, this is scheduled for tomorrow morning 01/19/2021 at 7 AM will be n.p.o. at midnight. Plan for oral antibiotics in regards to her right foot infection postoperatively. Attestations Medical Necessity Statement*: Osteomyelitis right fourth toe 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 Code Acute Thread Pulling Machine Attendant for [facility] Fwd Diagnoses Diabetes mellitus type 1 E10.65 Diabetes mellitus complication status: with hyperglycemia 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 L97.514
[2021-01-18 19:59] LABS: Glucose Point of Care 109 mg/dL (70-110)
[2021-01-18] MEDS: duloxetine 30 mg Capsule PO (20:21)
[2021-01-18] MEDS: trazodone 50 mg Tablet PO (20:22)
[2021-01-18] MEDS: insulin glargine 100 units/1 mL 5 UNIT SUBCUT (21:34)
[2021-01-18 22:00] VITALS: BP 129/84; PULSE 91; RESP 15; TEMP 36.8; O2SAT 95
[2021-01-19] VITALS (18 sets, daily range): BP systolic 125–190; BP diastolic 74–111; PULSE 62–115; RESP 14–24; TEMP 36.4–37.1; O2SAT 96–100
--- NOTE | 2021-01-19 01:19 | PC.NURSE ---
The patient had emesis at about 0015. She is complaining of pain in her kidney area. Unable to give po medication due to npo status. Call placed to hospitalist.
--- NOTE | 2021-01-19 01:42 | PC.NURSE ---
Condition of pt Pt is scheduled for amputation of the toe in the morning. She has had a debridement of her amputated stump, and reports significant pain increase since the beginning of shift. Pt is now NPO due to impending surgical procedure in the morning. Uncontrolled pain, pt vomiting, rocking, hitting herself in the head, states pain is above a rating of 10 on 1-10 pain scale. pt states, it is my leg, my back, and kidney area. Pt is digging her nails into her arms. notified Dr leonard via phone, and messaged hospitalist Dr. Gonzalez, who is assuming pt care.
--- NOTE | 2021-01-19 01:46 | PM.CONSULT ---
Providers/Reason For Consult Consulting Physician/Specialty*: Hospitalist service, Reason for Consult*: Intractable back pain Attending Physician: Jose A Moore MD History of Present Illness History of Present Illness Cherrie Solomon is a 40 year old female who has been admitted to neuropsychiatric unit for management of severe depression with suicidal attempt/ideation, unfortunately she has been struggling with resistant depression and other comorbid conditions such as nonhealing wound of stump status post revision by Dr. 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 Patient is getting p.o. antibiotics for MRSA. Leg abscess culture positive for MRSA and strep agalactae, urine culture positive for E. coli. She has history of type 1 diabetes, poorly controlled, few episodes of DKA in the past as well. Patient does not have any IV opioids for as needed or scheduled basis, she is scheduled for right fourth toe amputation in the morning and because of excruciating pain she was very agitated and started banging her head against the wall. She was not given any p.o. opioids as well because of her n.p.o. status by the nursing staff. Patient is stating that she is still hurting in her back since her admission, her symptoms have not resolved. She is endorsing any kind of movement would aggravate her pain she is describing her symptoms as My kidneys are hurting. Her back pain is radiating towards her groin. She is denying dysuria however she is stating that she has to force herself to void urine, bedside commode has about 100 cc of orange-colored urine. Decision was made to transfer her to [facility] as she has surgery scheduled for the morning and she will need IV opioids afterwards as well. Review of Systems Const: Reports: body aches and fatigue Eyes: Denies: change in vision ENMT: Denies: throat pain Card: Denies: chest pain Resp: Denies: dyspnea GI: Denies: abdominal pain : Reports: urinary hesitancy and oliguria; Denies: flank pain Musc: Reports: back pain, extremity pain, joint redness, limited range of motion, muscle cramps and decrease in muscle mass Skin/Breast: Reports: skin tenderness, changing lesions, lesions, dry skin and nail changes Neuro: Denies: headache(s) Psych: Reports: anxiety, depression, mood swings, irritability and suicidal ideation Endo: Denies: polyuria Keith/Lymph: Denies: easy bruising All/Imm: Denies: urticaria Meds/Allergies Home Medications and Allergies Home Medications Medication Instructions Recorded Confirmed Last Taken Type insulin lispro See Rx Instructions .ROUTE .COMPLEX 12/13/20 01/11/21 12/21/20 History Lantus Solostar U-100 Insulin 5 unit SUBCUT BEDTIME 12/24/20 01/11/21 12/23/20 History cholestyramine (with sugar) 4 g PO BID #60 ea 12/31/20 01/11/21 Unknown Rx cyclobenzaprine 10 mg PO TID PRN #30 tab 12/31/20 01/11/21 Unknown Rx pantoprazole 40 mg PO BID #60 tab 12/31/20 01/11/21 Unknown Rx promethazine 25 mg PO Q6H PRN #30 tab 12/31/20 01/11/21 Unknown Rx clarithromycin 500 mg tablet 500 mg PO BID 14 Days #28 tab 01/06/21 01/11/21 Unknown Rx metronidazole 500 mg tablet 500 mg PO TID 14 Days #42 tab 01/06/21 01/11/21 Unknown Rx dicyclomine 20 mg PO TID #20 tab 01/07/21 01/11/21 Unknown Rx amlodipine 10 mg PO DAILY 01/09/21 01/11/21 Unknown History buspirone 15 mg PO BID 30 Days #60 tab 01/09/21 01/11/21 Unknown Rx carvedilol 12.5 mg PO BID 01/09/21 01/11/21 Unknown History citalopram 20 mg PO DAILY 30 Days tab 01/09/21 01/11/21 Unknown Rx cholestyramine-aspartame 1 ea PO BID 01/11/21 01/11/21 Unknown History [Prevalite] gabapentin 100 mg PO Q12H 01/11/21 01/11/21 Unknown History glipizide 5 mg PO DAILY 01/11/21 01/11/21 Unknown History lisinopril 10 mg PO DAILY 01/11/21 01/11/21 Unknown History meloxicam 15 mg PO DAILY #15 tab 01/11/21 01/11/21 Unknown Rx metformin 500 mg PO BID 01/11/21 01/11/21 Unknown History sulfamethoxazole-trimethoprim 1 tab PO DAILY 01/11/21 01/11/21 Unknown History Allergies Allergy/AdvReac Type Severity Reaction Status Date / Time morphine Allergy ALGY-Difficulty Verified 01/15/21 16:54 Breathing Current Medications Current Medications Generic Name Dose Route Start Last Admin Trade Name Ciriloq PRN Reason Stop Dose Admin Hydrocodone Bitart/Acetaminophen 1 tab 01/17/21 17:35 01/18/21 20:45 Hydrocodone-Acetaminophen 5-325 Mg Tablet PO 1 tab Q8H PRN Administration MODERATE PAIN Amlodipine Besylate 10 mg 01/17/21 09:00 01/18/21 08:54 Amlodipine 10 Mg Tablet PO 10 mg DAILY DAWSON Administration Buspirone HCl 15 mg 01/12/21 21:00 01/18/21 20:22 Buspirone 10 Mg Tablet PO 15 mg 899,2099 [facility] Administration Carvedilol 12.5 mg 01/12/21 21:00 01/18/21 20:21 Carvedilol 12.5 Mg Tablet PO 12.5 mg 899,2099 DAWSON Administration Cefdinir 300 mg 01/18/21 21:00 01/18/21 20:24 Cefdinir 300 Mg Capsule PO 300 mg 899,2099 [facility] Administration Protocol Cholestyramine Resin 4 gm 01/12/21 21:00 01/18/21 21:43 Cholestyramine Powder 4 Gm Pkt PO Not Given 899,2099 [facility] Citalopram Hydrobromide 20 mg 01/12/21 09:00 01/18/21 08:54 Citalopram 20 Mg Tablet PO 20 mg DAILY DAWSON Administration Collagenase 1 applic 01/12/21 22:20 01/18/21 17:47 Collagenase Oint 30 Gm TOPICAL 1 applic DAILY DAWSON Administration Docusate Sodium 200 mg 01/18/21 21:00 01/18/21 20:23 Docusate Sodium 100 Mg Capsule PO 200 mg 899,2099 [facility] Administration Doxycycline Monohydrate 100 mg 01/12/21 21:00 01/18/21 20:21 Doxycycline 100 Mg Tablet PO 100 mg 0900,2099 DAWSON Administration Protocol Duloxetine HCl 30 mg 01/18/21 21:00 01/18/21 20:21 Duloxetine 30 Mg Capsule PO 30 mg 899,2099 [facility] Administration Gabapentin 100 mg 01/12/21 21:00 01/18/21 20:21 Gabapentin 100 Mg Capsule PO 100 mg 899,2099 [facility] Administration Insulin Aspart 0 unit 01/11/21 19:44 01/18/21 21:01 Insulin Aspart 100 Unit/1 Ml SUBCUT Not Given WM&BEDTIME DAWSON Protocol Insulin Glargine 5 unit 01/11/21 21:00 01/18/21 21:34 Insulin Glargine 100 Units/1 Ml SUBCUT 5 unit BEDTIME DAWSON Administration Lidocaine 1 patch 01/12/21 12:00 01/18/21 21:00 Lidocaine 5% Patch TOPICAL 1 patch [id number] [facility] Administration Olanzapine 5 mg 01/12/21 21:33 01/15/21 00:06 Olanzapine 5 Mg Odt PO 5 mg Q4H PRN Administration Agitation/Psychosis Pantoprazole Sodium 40 mg 01/12/21 21:00 01/18/21 20:[address] 40 Mg Tablet PO 40 mg 899,2099 [facility] Administration Phenazopyridine HCl 100 mg 01/14/21 12:00 01/18/21 17:43 Phenazopyridine 100 Mg Tablet PO 100 mg TIDPC DAWSON Administration Propranolol HCl 20 mg 01/16/21 15:00 01/18/21 20:22 Propranolol 20 Mg Tablet PO 20 mg TID DAW[facility] Administration Ziprasidone 20 mg 01/13/21 09:00 01/15/21 04:36 Ziprasidone 20 Mg/Ml Sdv IM 20 mg BID PRN Administration AGITATION PFSH Acute PFSH: Medical History Acute kidney injury Back pain CKD (chronic kidney disease) stage 2, GFR 60-89 ml/min baseline Cr is around 1.0 Coronary artery disease hx of stenting Diabetes mellitus type 1 diagnosed age 15, history of peripheral neuropathy, gastroparesis and nephropathy Diabetic foot ulcer s/p surgical intervention and eventual amputation Diabetic gastroparesis Diabetic ophthalmopathy DKA (diabetic ketoacidoses) Foot osteomyelitis, right Hyperlipidemia Hypertension Nausea & vomiting Non-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 Suicidal ideation Surgical History Below-knee amputation of left lower extremity H/O esophagogastroduodenoscopy (05/15/21) Bile reflux gastritis, grade B esophagitis H/O exploratory laparotomy x 3 History of amputation of right forefoot Hx of cholecystectomy Previous section x 3 S/P coronary artery stent placement x 1 S/P percutaneous endoscopic gastrostomy (PEG) tube placement Family History Unknown Diabetes extensive, type II Other CHF (congestive heart failure) Social History Smoking and tobacco status: former smoker Quit status (tobacco): has quit using tobacco Former quit date comment: 15 yrs ago Alcohol intake: former Former alcohol use details: 15 yrs ago Household members: spouse Marital status: Sexually active: Yes (1, ) Female Reproductive History: Date of last menstrual period: 12/17/20 Vitals/I&O/Wt Last Vital Signs Temp 98.2 F 01/18/21 22:00 Pulse 91 01/18/21 22:00 Resp 15 01/18/21 22:00 BP 129/84 01/18/21 22:00 Pulse Ox 95 01/18/21 22:00 Physical Exam Narrative: EXAM NARRATIVE: Middle-age female, who appears more than stated age, currently in distress because of back pain, Paraspinal tenderness in lumbar area bilaterally, skin rash noted around sacral area as well No active signs of cellulitis or any swelling noticed She was sitting at the bedside Right foot is dressed with a sterile dressing, ankle has mild swelling Dry mucous membranes, emaciated malnourished appearance EOMI, PERRLA no neurological deficits She is much more cooperative as compared to my previous encounter with her No acute respiratory distress no audible stridor or wheezing Data Micro: Micro: Microbiology 01/16/21 08:24 Gram Stain - Final Leg - #1 Tissue Culture - P reliminary Strep agalactia e - (group b) A&P Assessment and plan (1) Intractable pain: Status: Acute (2) 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: Status: Acute (3) Non-healing wound of amputation stump: Status: Chronic (4) Toe infection: Status: Acute (5) PTSD (post-traumatic stress disorder): Status: Acute (6) Dehydration: Status: Acute (7) Gastroparesis: Status: Acute (8) Suicide attempt: Status: Acute (9) Depression: Status: Acute (10) Low back pain: Status: Acute Additional A&P Information Intractable back pain Paraspinal muscle tenderness with sacral ulcers, no signs of cellulitis or any swelling Lumbar and thoracic spine CT scan without any acute findings No signs of epidural abscess, mild degenerative changes evident on imaging She is scheduled for right fourth toe amputation for which she will need better control of her pain as well I will go ahead and transfer to [facility] for IV analgesic management and start her on fluids since she is n.p.o. since midnight and looks clinically dehydrated with minimal urine output As far as back pain is considered I do believe this is related to her psychiatric behavior her spine imaging is not showing any acute pathological changes, no signs of pyelonephritis Ischemic ulcer of right foot with necrosis of bone Patient is scheduled for amputation in the morning by Dr. Sin N.p.o. since midnight, Currently she is getting doxycycline for MRSA Gastritis: Continue Protonix Chronic anemia: Stable Hypertension, labile blood pressure, scheduled p.o. antihypertensive regimen Suicide attempt: Management as per NPU Type 1 diabetes: Insulin on hold Full code N.p.o. DVT prophylaxis contraindicated because of scheduled surgery in the morning, kindly readdress after the procedure Consult Attestations Medical Necessity Statement: As per NPU Time Spent in Patient Care: 30mins 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 Code Acute Harvest Manager for g Fwd Diagnoses Intractable pain R52 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 L97.514 Non-healing wound of amputation stump T87.89 Toe infection L08.9 PTSD (post-traumatic stress disorder) F43.10 Dehydration E86.0 Gastroparesis K31.84 Suicide attempt T14.91XA Depression F32.9 Low back pain M54.5
[2021-01-19] MEDS: HYDROmorphone 1 mg/mL INJ 1 mL 0.5 MG IVP (05:28)
[2021-01-19] MEDS: ondansetron 2 mg/ML SDV 2 mL 4 MG IVP ×2 (05:28→10:37)
[2021-01-19] MEDS: sodium chloride 0.9% 1,000 ML 75 ML IV ×2 (05:29→16:36)
[2021-01-19 05:50] LABS: Basophils # 0.1 10^3/uL (0.0-0.1); Basophils % 0.4 %; Eosinophils # 0.1 10^3/uL (0.0-0.8); Eosinophils % 0.5 %; Hematocrit 36.9 % (37.0-47.0); Hemoglobin 11.8 g/dL (11.5-15.3); Lymphocytes # 1.7 10^3/uL (0.8-4.8); Lymphocytes % 13.7 %; Mean Corpuscular Hemoglobin 27.6 pg (28.0-34.0); Mean Corpuscular Volume 86.4 fL (81-99); Mean Platelet Volume 8.5 fL (7.4-10.4); Monocytes # 0.7 10^3/uL (0.2-0.9); Monocytes % 5.9 %; Neutrophils # 9.58 10^3/uL (1.8-7.7); Neutrophils % 79.2 %; Nucleated Red Blood Cells % 0 %; Platelet Count 513 10^3/cmm (130-400); Red Blood Count 4.27 10^6/uL (4.1-5.3); Red Cell Distribution Width 13.2 % (12.1-15.1); White Blood Count 12.1 10^3/uL (4.0-10.0)
[2021-01-19 06:14] LABS: Alanine Aminotransferase 9 U/L (0-33); Albumin Level 3.7 g/dL (3.5-5.2); Alkaline Phosphatase 115 IU/L (35-105); Anion Gap 18.7 (5-19); Aspartate Amino Transferase 18 U/L (0-32); Blood Urea Nitrogen 15 mg/dL (6-20); Calcium 9.4 mg/dL (8.5-10.5); Carbon Dioxide 22 mmol/L (22-29); Chloride 97 mmol/L (98-107); Globulin 4.2 g/dL (1.3-4.6); Glomerular Filtration Rate 60.8 mL/min (90-130); Glucose 133 mg/dL (65-115); Osmolality Calculated 281 mOsm/kg (285-295); Potassium 3.7 mmol/L (3.5-5.1); Sodium 134 mmol/L (136-145); Total Bilirubin 0.5 mg/dL (0.15-1.2); Total Protein 7.9 g/dL (6.6-8.7)
--- NOTE | 2021-01-19 06:31 | W.PM.OPSUD ---
Surgery/Procedure H&P Update DATE OF PROCEDURE: January 19, 2021 DATE H&P PERFORMED: 01/15/21 H&P UPDATE INFORMATION: I have reviewed H&P completed within last 30 days, I have examined patient prior to procedure, No changes to prior documentation and H&P is in [facility] on date indicated PREOP DIAGNOSIS: Osteomyelitis right fourth toe PRIMARY INDICATION FOR PROCEDURE: Osteomyelitis right fourth toe PLANNED PROCEDURE: Operation Date: 01/19/21 07:00 Proposed Procedures p Ray Resection(Right) - Rafael Sin DPM
--- NOTE | 2021-01-19 06:36 | P.PN_ITS ---
Subjective Subjective: Interval history: Patient overall is about the same. Medications: Reviewed: Yes Vitals/I&O/Wt Last Vital Signs Temp 98.5 F 01/19/21 03:10 Pulse 91 01/19/21 03:10 Resp 24 H 01/19/21 05:28 BP 130/82 01/19/21 03:10 Pulse Ox 97 01/19/21 03:10 Physical Exam Narrative: EXAM NARRATIVE: Patient is conscious alert oriented X3 BMI 28.4 Left lower extremity below the knee stump dressing in place without complication, removed bedside and repacked with half-inch Nu Gauze wet-to-dry normal saline. In the presence of nursing staff Chen Data : 01/19/21 05:42 01/19/21 05:42 Micro: Microbiology 01/16/21 08:24 Gram Stain - Final Leg - #1 Tissue Culture - Preliminary Strep agalactiae - (group b) A&P Assessment and plan (1) Non-healing wound of amputation stump: From surgical standpoint of view 1-nutrition optimization 2-wound care in the form of daily packing of the wound using half inch Nu Gauze wet-to-dry followed by ABDs and Miguel A wrap 3-management of medical comorbidities per hospitalist service 4-physical therapy consultation when needed 5-assurance and education I highly recommend to have the patient follow-up with wound care center team on weekly basis after hospitalization We will continue coordinating care with hospitalist service and Dr. Sin All questions have been answered and all concerns have been addressed to juan jose abreu's satisfaction. Status: Chronic Attestations Medical Necessity Statement*: Continue inpatient hospitalization passing 2 midnights for medical and surgical care Time Spent in Patient Care: (>than 50% of time spent in counselling and/or direct pt care on unit) . 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 Code Acute Sql Server Dba for Kim Fwmaddie Diagnoses Non-healing wound of amputation stump T87.89
--- NOTE | 2021-01-19 06:42 | PC.NURSE ---
Received patient in outpatient surgery. Pt gagging herself and puking in floor beside bed. Bucket provided. Patient states she is nauseous. Will give PRN antiemetic.
--- NOTE | 2021-01-19 06:44 | PM.OP ---
Operative Report Date of procedure: January 19, 2021 Pre-op Diagnosis: Osteomyelitis right fourth toe Post-op diagnosis: same Procedure Done: Right fourth toe amputation Implants: 3-0 Vicryl, 4-0 nylon Specimens removed/disposition: Right fourth toe sent to pathology Pathology: Right fourth toe to pathology for permanent Surgeon: Rafael Sin D.P.M. Certified Professional Controller: Troy Estimated blood loss: 10 Tourniquet time: 10 Findings: Clean margins at the level of amputation through the right fourth metatarsophalangeal joint. Condition: stable Disposition: PACU Brief History: Osteomyelitis distal phalanx right fourth toe has a full-thickness wound probes to bone. Has edema and purulent drainage. Patient is [id number] about toe amputation has no issues with this she is requesting a complete amputation of her right fourth toe. She states that her priority is to get rid of the source of infection and preserve the rest of her foot. She has been n.p.o. since midnight. Informed consent signed by myself and patient, I initialed the right foot preoperatively and answered all questions to her satisfaction. No guarantees written, expressed or implied. Patient wished to proceed. Risks include pain, bleeding, numbness, bleeding, transfer pressure, transfer lesion, failure to eradicate infection need for higher level of amputation, antibiotic therapies and loss of limb/loss of life. Procedure: Under mild sedation the patient was brought to the operating room and remained on the gurney in supine position. A timeout was performed. Anesthesia was administered by the anesthesia service. Local anesthesia injected by myself total of 20 cc of one-to-one mixture 1% lidocaine and 0.5% Marcaine plain and a right fourth ray block. Well-padded pneumatic tourniquet applied to the right ankle. The right lower extremity was then scrubbed, prepped and draped utilizing normal aseptic technique. No Esmarch bandage was utilized for examination. Vertical semielliptical converging incisions in a fishmouth fashion was performed full-thickness down to bone and the right fourth toe was disarticulated at the metatarsophalangeal joint this was passed from the operative field and sent to pathology for permanent. At the level of this amputation site the fourth metatarsal head was vibrant, bright and appropriate density, no devitalized soft tissue including epidermis, dermis and subcutaneous tissue at this level. Incision was irrigated with copious amounts of sterile saline solution followed by closure consisting of 3-0 Vicryl and 4-0 nylon. Incision was then dressed with Adaptic, sterile 4 x 4's, Kerlix and Miguel A wrap. Patient will elevate her right foot and be weightbearing limited with heel touch only for transfers at this time. Will return back to the floor would continue oral antibiotics I would recommend 2 weeks of oral antibiotics for soft tissue coverage only, we were able to get to joints back and this level of amputation is curative for the area of osteomyelitis that was involved.
[2021-01-19] MEDS: sodium chloride 0.9% 1,000 ML 30 ML IV (06:50)
--- NOTE | 2021-01-19 06:57 | ANES.PREANE2 ---
Pre-Anesthetic Assessment Pre-Anesthetic Assessment: Height/Weight: Height 1.75 m Weight 87.226 kg Temp Pulse Resp BP Pulse Ox 98.3 F 62 18 181/111 96 01/19/21 06:40 01/19/21 06:40 01/19/21 06:40 01/19/21 06:40 01/19/21 06:40 Preop Diagnosis: Osteomyelitis right fourth toe Proposed Procedure: Operation Date: 01/16/21 08:10 Proposed Procedures p Debridement of left below the knee amputation stump ulcer(Left) - Dave Holley MD Operation Date: 01/19/21 07:00 Proposed Procedures p Ray Resection(Right) - EAMON MartinM Was Beta Rozina taken within 24 hours: Yes Was Clonidine taken within 24 hours: N/A Last intake: Intake Last Liquid Date 01/18/21 Last Liquid Time 23:00 Last Solid Date 01/18/21 Last Solid Time 22:00 Social: Social History: Tobacco and No alcohol Exam: Pre-Anes Outpt Exam: alert, oriented x 3 and regular rate & rhythm Airway: Submandibular: WNL Cervical ROM: WNL MP: 2 Dentition: Chipped Additional comments: Poor dentition Pulmonary: Pulmonary: COPD CV/HEM: CV/HEM: HTN : : Chronic renal Insufficiency Metabolic: Metabolic: DM (poorly controlled) Musc/skel: Comments: chronic pain Neuropsych: Neuropsych: Anxiety, Depression and Neuropathy Anesthetic Plan: ASA status: 3 Anesthesia: Choice Risk of > 500 ml blood loss (7ml/kg in children): No Meds/Allergies Current Medications: Current Medications Generic Name Dose Route Start Last Admin Trade Name Ana Cristina PRN Reason Stop Dose Admin Carvedilol 12.5 mg 01/12/21 21:00 01/18/21 20:21 Carvedilol 12.5 Mg Tablet PO 12.5 mg 0900,2099 DAWSON Administration Cefdinir 300 mg 01/18/21 21:00 01/18/21 20:24 Cefdinir 300 Mg Capsule PO 300 mg 899,2099 DAWSON Administration Protocol Doxycycline Monohy drate 100 mg 01/12/21 21:00 01/18/21 20:21 Doxycycline 100 Mg Tablet PO 100 mg 899,2099 DAWSON Administration Protocol Gabapentin 100 mg 01/12/21 21:00 01/18/21 20:21 Gabapentin 100 M g Capsule PO 100 mg 0900,2100 DAWSON Administration Hydromorphone HCl 0.5 mg 01/19/21 02:54 01/19/21 05:28 Hydromorphone 1 Mg/Ml Inj 1 Ml IVP 0.5 mg Q4H PRN Administration pain Sodium Chloride 1,000 mls @ 75 ml s/hr 01/19/21 02:54 01/19/21 05:29 Sodium Chloride 0.9% IV 75 mls/hr .[id number] DAWSON Administration Sodium Chloride 1,000 mls @ 30 ml s/hr 01/19/21 06:45 01/19/21 06:50 Sodium Chloride 0.9% IV 01/20/21 06:44 30 mls/hr .Q24H DAWSON Administration Ondansetron HCl 4 mg 01/19/21 02:54 01/19/21 05:28 Ondansetron 2 Mg /Ml Sdv 2 Ml IVP 4 mg Q6H PRN Administration NAUSEA AND VOMITI NG Pantoprazole Sodiu m 40 mg 01/12/21 21:00 01/18/21 20:[address] 40 Mg Tablet PO 40 mg 0900,2100 DAWSON Administration PFSH Anesthesia PFSH: Medical History Acute kidney injury Back pain CKD (chronic kidney disease) stage 2, GFR 60-89 ml/min baseline Cr is around 1.0 Coronary artery disease hx of stenting Diabetes mellitus type 1 diagnosed age 15, history of peripheral neuropathy, gastroparesis and nephropathy Diabetic foot ulcer s/p surgical intervention and eventual amputation Diabetic gastroparesis Diabetic ophthalmopathy DKA (diabetic ketoacidoses) Foot osteomyelitis, right Hyperlipidemia Hypertension Nausea & vomiting Non-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 Suicidal ideation Surgical History Below-knee amputation of left lower extremity H/O esophagogastroduodenoscopy (12/31/20) Bile reflux gastritis, grade B esophagitis H/O exploratory laparotomy x 3 History of amputation of right forefoot Hx of cholecystectomy Previous section x 3 S/P coronary artery stent placement x 1 S/P percutaneous endoscopic gastrostomy (PEG) tube placement Family History Unknown Diabetes extensive, type II Other CHF (congestive heart failure) Social History Smoking and tobacco status: former smoker Quit status (tobacco): has quit using tobacco Former quit date comment: 15 yrs ago Alcohol intake: former Former alcohol use details: 15 yrs ago Household members: spouse Marital status: Sexually active: Yes (1, ) Female Reproductive History: Date of last menstrual period: 12/17/20 Data Anesthesia CBC & Chem 7: 01/19/21 05:42 01/19/21 05:42 Other Labs: Laboratory Results - last 48 hr 01/14/21 01/17/21 01/17/21 15:20 11:10 16:48 WBC RBC Hgb Hct MCV MCH MCHC RDW Plt Count MPV Neut % (Auto) Lymph % (Auto) [place] % (Auto) Eos % (Auto) Baso % (Auto) Neut # (Auto) Lymph # (Auto) [place] # (Auto) Eos # (Auto) Baso # (Auto) Nucleated RBC % (auto) Nucleated RBCs # Sodium Potassium Chloride Carbon Dioxide Anion Gap BUN Creatinine GFR Calculation Glucose POC Glucose 132 H 128 H Calculated Osmolality Calcium Total Bilirubin AST ALT Alkaline Phosphatase Total Protein Albumin Globulin Urine Color Yellow Urine Appearance Hazy A Urine pH 5 Ur Specific [place] 1.020 Urine Protein 3+ H Urine Glucose (UA) Norm Urine Ketones Negative Urine Blood Trace H Urine Nitrate Negative Urine Bilirubin Neg Urine Urobilinogen Norm Ur Leukocyte Esterase 2+ H Urine RBC Rare Urine WBC 55-80 H Ur Squamous Epith Cells 0-4 H Urine Bacteria 3+ H 01/17/21 01/18/21 01/18/21 20:25 06:53 07:31 WBC 8.9 RBC 4.00 L Hgb 11.0 L Hct 34.4 L MCV 86.0 MCH 27.5 L MCHC 32.0 RDW 13.2 Plt Count 475 H MPV 9.0 Neut % (Auto) 75.5 Lymph % (Auto) 16.8 [place] % (Auto) 5.8 Eos % (Auto) 1.1 Baso % (Auto) 0.4 Neut # (Auto) 6.71 Lymph # (Auto) 1.5 [place] # (Auto) 0.5 Eos # (Auto) 0.1 Baso # (Auto) 0.0 Nucleated RBC % (auto) 0 Nucleated RBCs # 0.0 Sodium Potassium Chloride Carbon Dioxide Anion Gap BUN Creatinine GFR Calculation Glucose POC Glucose 153 H 113 H Calculated Osmolality Calcium Total Bilirubin AST ALT Alkaline Phosphatase Total Protein Albumin Globulin Urine Color Urine Appearance Urine pH Ur Specific [place] Urine Protein Urine Glucose (UA) Urine Ketones Urine Blood Urine Nitrate Urine Bilirubin Urine Urobilinogen Ur Leukocyte Esterase Urine RBC Urine WBC Ur Squamous Epith Cells Urine Bacteria 01/18/21 01/18/21 01/18/21 07:31 11:28 16:26 WBC RBC Hgb Hct MCV MCH MCHC RDW Plt Count MPV Neut % (Auto) Lymph % (Auto) [place] % (Auto) Eos % (Auto) Baso % (Auto) Neut # (Auto) Lymph # (Auto) [place] # (Auto) Eos # (Auto) Baso # (Auto) Nucleated RBC % (auto) Nucleated RBCs # Sodium 133 L Potassium 3.5 Chloride 98 Carbon Dioxide 22 Anion Gap 16.5 BUN 14 Creatinine 1.0 H GFR Calculation 60.8 L Glucose 115 POC Glucose 141 H 102 Calculated Osmolality 277 L Calcium 9.0 Total Bilirubin 0.4 AST 12 ALT < 5 Alkaline Phosphatase 103 Total Protein 7.0 Albumin 3.2 L Globulin 3.8 Urine Color Urine Appearance Urine pH Ur Specific [place] Urine Protein Urine Glucose (UA) Urine Ketones Urine Blood Urine Nitrate Urine Bilirubin Urine Urobilinogen Ur Leukocyte Esterase Urine RBC Urine WBC Ur Squamous Epith Cells Urine Bacteria 01/18/21 01/19/21 01/19/21 19:55 05:42 05:42 WBC 12.1 H RBC 4.27 Hgb 11.8 Hct 36.9 L MCV 86.4 MCH 27.6 L MCHC 32.0 RDW 13.2 Plt Count 513 H MPV 8.5 Neut % (Auto) 79.2 Lymph % (Auto) 13.7 [place] % (Auto) 5.9 Eos % (Auto) 0.5 Baso % (Auto) 0.4 Neut # (Auto) 9.58 H Lymph # (Auto) 1.7 [place] # (Auto) 0.7 Eos # (Auto) 0.1 Baso # (Auto) 0.1 Nucleated RBC % (auto) 0 Nucleated RBCs # 0.0 Sodium 134 L Potassium 3.7 Chloride 97 L Carbon Dioxide 22 Anion Gap 18.7 BUN 15 Creatinine 1.0 H GFR Calculation 60.8 L Glucose 133 H POC Glucose 109 Calculated Osmolality 281 L Calcium 9.4 Total Bilirubin 0.5 AST 18 ALT 9 Alkaline Phosphatase 115 H Total Protein 7.9 Albumin 3.7 Globulin 4.2 Urine Color Urine Appearance Urine pH Ur Specific [place] Urine Protein Urine Glucose (UA) Urine Ketones Urine Blood Urine Nitrate Urine Bilirubin Urine Urobilinogen Ur Leukocyte Esterase Urine RBC Urine WBC Ur Squamous Epith Cells Urine Bacteria Micro: Microbiology 01/16/21 08:24 Gram Stain - Final Leg - #1 Tissue Culture - Preliminary Strep agalactiae - (group b) Cardiac Studies: No Data to Display
[2021-01-19] MEDS: HYDROmorphone 1 mg/mL INJ 1 mL 0.25 MG IVP ×3 (07:32→18:22)
--- NOTE | 2021-01-19 08:20 | P.PN_ITS ---
Subjective Subjective: Interval history: Overnight patient was agitated as patient was n.p.o. and could not get oral pain medications. Patient was transferred to the [facility] floor for IV pain meds. Patient underwent OR today and tolerated the procedure well. On examination patient complaining of pain again. Patient has received pain medication 30 minutes prior to my examination. Denies any nausea, vomiting, headache. Discussed in detail with the patient that daily management expectations should be that unfortunately given her disease, diabetic neuropathy, gastroparesis pain scale for her would always be somewhere around 5 and we should not expect the pain to be down to 0. Also discussed that she would need to follow-up as an outpatient with pain management service on discharge for further pain medications. Vitals/I&O/Wt Last Vital Signs Temp 97.8 F 01/19/21 07:50 Pulse 77 01/19/21 07:50 Resp 17 01/19/21 07:50 BP 138/87 01/19/21 07:50 Pulse Ox 98 01/19/21 07:50 01/18/21 01/19/21 01/19/21 22:59 06:59 14:59 Intake Total 50 / 50 Output Total 50 / 50 Balance 0 / 0 Physical Exam Const: COMMON NORMALS: no acute distress and patient oriented x3 EXAM LIMITATIONS: behavioral limitations GENERAL APPEARANCE: cooperative, comfortable and disheveled OTHER: Reclined in bed, appears comfortable, interacting, cooperative. HENMT: COMMON NORMALS: oropharynx normal Neck/C-Spine: COMMON NORMALS: no JVD Resp: COMMON NORMALS: normal respiratory effort and clear to auscultation bilaterally AUSCULTATION: clear to auscultation bilaterally Cardio: COMMON NORMALS: no JVD, regular rhythm, S1 normal heart sound present, S2 normal heart sound present and No murmurs present (Cardio) RHYTHM: regular rhythm HEART SOUNDS: S1 normal heart sound present and S2 normal heart sound present GI: COMMON NORMALS: Normal to inspection, nondistended, normoactive bowel sounds present, Soft to palpation and non-tender PALPATION: Yes Soft to palpation Extremity: COMMON NORMALS: no joint enlargement and no pedal edema OTHER: Left BKA. Right foot toe amputations. Neuro: COMMON NORMALS: patient oriented x3 and moves all extremities Skin: COMMON NORMALS: no rashes or lesions noted GENERAL SKIN EXAM: no rashes or lesions noted LESIONS: other (Excoriations on forearms and wrists. Excoriations on right foot/ankle. ) OTHER: Laceration, necrosis of right toe with bone exposure, foul-smelling drainage. Wound L BKA - ulceration w minimal necrosis, no sign surrounding erythema. Undermining. Data : 01/19/21 05:42 01/19/21 05:42 Micro: Microbiology 01/16/21 08:24 Gram Stain - Final Leg - #1 Tissue Culture - Preliminary Strep agalactiae - (group b) A&P Assessment and plan (1) Intractable pain: Status: Acute (2) 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: Status: Acute (3) Non-healing wound of amputation stump: Underwent debridement of necrotic tissue, undermining of left stump wound. Additional staged procedure for revision of the stump closure was considered by her with Dr. Holley, and may be planned for when she is overall doing somewhat better and in a more stable condition with regards to her depression, renal function and other problems. X-ray of left stump nonacute. No bone probed during procedure. Once more stable consideration may be additionally given to additional assessment by MRI. Previously history of osteomyelitis. Antibiotic coverage expanded with doxycycline, cefdinir. She continues to disconnect her IV, so continue oral antibiotic only for now. Status: Chronic (4) Toe infection: Status: Acute (5) PTSD (post-traumatic stress disorder): Status: Acute (6) Dehydration: Status: Acute (7) Gastroparesis: Status: Acute (8) Suicide attempt: Continue care by psychiatry. One-to-one supervision. Resume hospitalization on neuropsychiatric unit once medical issues under better control. Status: Acute (9) Depression: As above. Status: Acute (10) Low back pain: CT thoracic, lumbar spine, noncontrast due to FIONA, without gross abnormality. Suspicion of hematogenous infection dissemination is low with negative blood culture, no systemic signs of sepsis. MRSA growing from stump. Status: Acute Additional A&P Information Intractable back pain Paraspinal muscle tenderness with sacral ulcers, no signs of cellulitis or any swelling Lumbar and thoracic spine CT scan without any acute findings No signs of epidural abscess, mild degenerative changes evident on imaging She is scheduled for right fourth toe amputation for which she will need better control of her pain as well I will go ahead and transfer to [facility] for IV analgesic management and start her on fluids since she is n.p.o. since midnight and looks clinically dehydrated with minimal urine output As far as back pain is considered I do believe this is related to her psychiatric behavior her spine imaging is not showing any acute pathological c hanges, no signs of pyelonephritis Ischemic ulcer of right foot with necrosis of bone Post amputation in the morning by Dr. Sin Continue treatment with cefdinir and doxycycline. Patient will most likely need for 4 weeks on discharge. [place] 5 every 6 hours as needed for pain along with Dilaudid 0.5 every 8 hours as needed for breakthrough. Gastritis: Continue Protonix Chronic anemia: Stable Hypertension, labile blood pressure, scheduled p.o. antihypertensive regimen Suicide attempt: Management as per psychiatric team Type 1 diabetes: Insulin on hold Full code Cardiac diet. Heparin for DVT prophylaxis postoperatively. Discharge planning: Patient can be discharged safely from medicine point of view once cleared from psychiatric evaluation. Patient unfortunately still does not have insurance and will need to follow-up as an outpatient with pain clinic for further pain management. We discussed in detail regarding the same with patient at bedside. He also stated that unfortunately I cannot give her pain medications for more than 3 days and going forward she will need to follow-up with a primary care provider and with PCP. Case management is involved as well. Insurance paperwork has been filled in and awaiting decision from the state. Attestations Medical Necessity Statement*: Patient requires further hospitalization for psychiatric clearance before discharge, postoperative care for amputation fourth right toe for osteomyelitis. Time Spent in Patient Care: Greater than 35 minutes (>than 50% of time spent in counselling and/or direct pt care on unit) . 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
--- NOTE | 2021-01-19 08:48 | ANE.PACU2 ---
Inpatient post-anesthesia follow up: Airway intact: Yes Vital signs: Temperature 97.7 F Pulse Rate [Monito r] 118 Pulse Rate [Orthos tatic 103 Standing Right] Pulse Rate [Orthos tatic 104 Sitting Right] Pulse Rate [Orthos tatic Lying 92 Right] Pulse Rate 77 Respiratory Rate 14 Blood Pressure [Or thostatic 115/81 Standing Right Arm ] Blood Pressure [Or thostatic 139/86 Sitting Right Arm] Blood Pressure [Or thostatic 136/85 Lying Right Arm] Blood Pressure [Le ft Arm] 165/86 Blood Pressure 125/79 Pulse Oximetry 97 Oxygen Delivery Me thod Room Air Oxygen Flow Rate 8 Fraction of Inspir ed Oxygen Hydration adequate: Yes Nausea and vomiting: No Pain level: 2 Mental status: Baseline
[2021-01-19] MEDS: carvedilol 12.5 mg Tablet PO ×2 (09:39→21:10)
[2021-01-19] MEDS: pantoprazole DR 40 mg Tablet PO ×2 (09:39→21:10)
[2021-01-19] MEDS: doxycycline 100 mg Tablet PO ×2 (09:39→21:09)
[2021-01-19] MEDS: cefdinir 300 MG CAPSULE PO ×2 (09:40→21:10)
[2021-01-19] MEDS: gabapentin 100 mg Capsule PO ×2 (09:40→21:09)
[2021-01-19 09:48] LABS: Glucose Point of Care 135 mg/dL (70-110)
--- NOTE | 2021-01-19 10:54 | PC.NURSE ---
I reported the high bp to the nurse
[2021-01-19 11:44] LABS: Glucose Point of Care 128 mg/dL (70-110)
[2021-01-19] MEDS: propranolol 20 mg Tablet PO ×3 (12:25→21:09)
[2021-01-19] MEDS: amlodipine 10 mg Tablet PO (12:25)
[2021-01-19] MEDS: citalopram 20 mg Tablet PO (12:30)
--- NOTE | 2021-01-19 13:53 | PM.NPN ---
Subjective NPU Subjective: Interval history: Patient reports some discomfort and feeling tired. States that her appetite has been poor secondary to intermittent nausea, not related to mood symptoms. Reports intermittent low mood but denies any sustained depressive symptoms, denies any interval suicidal ideation or thoughts about hurting herself. Denies any interval psychotic symptoms, denies any auditory or visual hallucinations. Reports being compliant with medication and denies any medication side effects. States that her ongoing stressor is not having insurance which she cites as a cause for her noncompliance. Mental Status Exam MSE Comments: Appears to be somewhat sedated, fair eye contact, wearing hospital gown, propped up in her bed, sitter at bedside Psychomotor activity appears to be decreased, no agitation I feel tired, congruent affect, not labile Soporific, oriented to person, place, time, situation Memory and concentration appear to be fair based on interview Thought process, linear but brief, no flight of ideas, no looseness of associations Thought content, no delusions, no hallucinations, no suicidal or homicidal ideation Insight and judgment appear to be fair Vitals/I&O/Wt Last Vital Signs Temp 97.7 F 01/19/21 10:54 Pulse 90 01/19/21 12:38 Resp 24 H 01/19/21 12:38 BP 149/91 01/19/21 12:38 Pulse Ox 97 01/19/21 10:54 01/18/21 01/19/21 01/19/21 22:59 06:59 14:59 Intake Total 1050 / 1050 Output Total 50 / 50 Balance 1000 / 1000 Data NPU : 01/19/21 05:42 01/19/21 05:42 Micro: Microbiology 01/16/21 08:24 Gram Stain - Final Leg - #1 Tissue Culture - Final Strep agalactiae - (group b) Microbiology 01/16/21 08:24 Leg - #1 Gram Stain - Final 01/16/21 08:24 Leg - #1 Tissue Culture - Final Strep agalactiae - (group b) A&P Assessment and plan (1) FIOAN (acute kidney injury): Status: Acute (2) Depression: Status: Acute Qualifiers: Depression Type: unspecified Qualified Code(s): F32.9 - Major depressive disorder, single episode, unspecified (3) Suicide attempt: Status: Acute (4) Diabetes mellitus type 1: Status: Chronic Qualifiers: Diabetes mellitus complication status: with hyperglycemia Qualified Code(s): E10.65 - Type 1 diabetes mellitus with hyperglycemia (5) Diabetic gastroparesis: Status: Chronic (6) PTSD (post-traumatic stress disorder): Status: Acute Additional A&P Information 40-year-old female with chronic pain, history of noncompliance, poorly controlled type 1 diabetes with amputations, multiple acute and chronic medical stressors and financial stressors with recent report of suicidal ideation contingent on pain control. Currently denying any depressive symptoms and denying any suicidal ideation. Patient routinely citing suicidal ideation contingent on control of her pain which likely would not be mitigated by inpatient psychiatric hospitalization and would best be mitigated by appropriate medical monitoring on an outpatient basis after medical stabilization. Patient cites financial stressors and lack of insurance as primary reasons for noncompliance. CONTINUE current medication, continue to monitor Inpatient psychiatric hospitalization is not indicated per above given no psychiatric indication to mitigate risk given that patient routinely cites her uncontrolled pain as a reason for feeling suicidal. RECOMMEND outpatient psychiatric medication management as well as therapy to target development of adaptive coping strategies given her ongoing medical and life stressors. Psychiatry will continue to follow during this hospitalization Involuntary Hold Information 96 Hour Hold: 96 Hour Involuntary Admission: No Attestations NPU Medical Necessity Statement*: Patient continues to require hospitalization for medical stabilization 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 Code Acute It Professional for [facility] Diagnoses FIONA (acute kidney injury) N17.9 Depression F32.9 Depression Type: unspecified Suicide attempt T14.91XA Diabetes mellitus type 1 E10.65 Diabetes mellitus complication status: with hyperglycemia Diabetic gastroparesis E11.43; K31.84 PTSD (post-traumatic stress disorder) F43.10
[2021-01-19 16:05] LABS: Glucose Point of Care 126 mg/dL (70-110)
[2021-01-19] MEDS: HYDROcodone-acetaminophen 5-325 mg Tablet 1 TAB PO (16:33)
[2021-01-19] MEDS: BuSPIRONE 10 mg Tablet 15 MG PO (18:23)
[2021-01-19] MEDS: duloxetine 30 mg Capsule PO (21:10)
[2021-01-19] MEDS: acetaminophen 325 mg Tablet PO (21:34)
[2021-01-19 21:40] LABS: Glucose Point of Care 131 mg/dL (70-110)
[2021-01-19] MEDS: ziprasidone 20 mg/mL SDV ×2 (22:15)
[2021-01-19] MEDS: water for injection-sterile 10 ML (22:18)
[2021-01-19] MEDS: ziprasidone 20 mg/mL SDV IM (22:23)
--- NOTE | 2021-01-19 23:00 | PC.NURSE ---
AGITATION/ANXIETY Had slept first part of shift then after pm meds became increasingly anxious. Requested pain med but was very unhappy with only being able to get Tylenol at this time. Was sitting up in med crying and moaning. Almost hyerventilating herself and demanding to see the Dr for more pain med. Was given the IM Geodon and is now resting. 1:1 sitter at bedside
[2021-01-20 05:04] VITALS: BP 140/90; PULSE 77; RESP 16; TEMP 37; O2SAT 96
[2021-01-20 05:23] LABS: Glucose Point of Care 86 mg/dL (70-110)
--- NOTE | 2021-01-20 05:38 | PC.NURSE ---
BLADDER SCAN/CATH Had not voided this shift. Tried to use bedpan but could not do anything. Bladder Scan done and showed >540 ml. Wanted to try bedpan again and voided 100ml only. Straight cath done with return of 500ml urine. Crying with c/o back pain while doing cath. RN medicating with IV Dilaudid. 1:1 sitter at bedside all shift. Had episode during night of agitation and anxiety and was given dose of IM Geodon which worked very well and she slept until this morning. Dressings remain intact to right foot and left stump. Both clean & dry.
[2021-01-20 05:39] VITALS: RESP 20
[2021-01-20] MEDS: HYDROmorphone 1 mg/mL INJ 1 mL 0.25 MG IVP (05:39)
--- NOTE | 2021-01-20 06:49 | PM.PN ---
Subjective Subjective: Interval history: Patient is 1 day status post right fourth toe amputation secondary to osteomyelitis at the distal phalanx. Joint was taken at the metatarsophalangeal joint this was a clean margin. Recommending 2 weeks of oral antibiotics on discharge. Vitals/I&O/Wt Last Vital Signs Temp 98.6 F 01/20/21 05:04 Pulse 77 01/20/21 05:04 Resp 20 H 01/20/21 05:39 BP 140/90 01/20/21 05:04 Pulse Ox 96 01/20/21 05:04 01/19/21 01/19/21 01/20/21 14:59 22:59 06:59 Intake Total 1050 / 1050 1313.75 / 2363.75 120 / 2483.75 Output Total 50 / 50 600 / 650 Balance 1000 / 1000 1313.75 / 2313.75 -480 / 1833.75 Physical Exam Narrative: EXAM NARRATIVE: GENERAL: Patient is alert and oriented ?3 and in no acute distress. The following is a focused right lower extremity exam. VASCULAR: Dorsalis pedis palpable +2, posterior tibial arteries palpable +2. Capillary refill time less than 3 seconds to the distal fifth toe and amputation site of the second toe. Calf is supple and nontender proximally and distally. Decreased pedal hair growth. Focal edema to the right fourth toe. NEUROLOGICAL: Protective sensation intact 0/10 sites, tested with [place] Michaela monofilament to bilateral feet. DERMATOLOGICAL: Postop dressing is clean, dry and intact, no strikethrough bleeding, no drainage. No proximal lymphangitic streaking or erythema at the level of the dressing. MUSCULOSKELETAL: Status post left below-knee amputation. Status post right hallux amputation. Status post right third toe amputation. Status post right fourth toe amputation. Data : 01/19/21 05:42 01/19/21 05:42 Micro: Microbiology 01/16/21 08:24 Gram Stain - Final Leg - #1 Tissue Culture - Final Strep agalactiae - (group b) A&P Assessment and plan (1) Diabetes mellitus type 1: Status: Chronic Qualifiers: Diabetes mellitus complication status: with hyperglycemia Qualified Code(s): E10.65 - Type 1 diabetes mellitus with hyperglycemia (2) 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: Status: Acute Ms. Solomon is 1 day status post right fourth toe amputation secondary to osteomyelitis at the distal phalanx. Doing well postoperatively. Patient is okay for discharge from podiatry standpoint. Or clean margins at the level of the amputation at the metatarsophalangeal joint. Would recommend 2 weeks of oral antibiotics for soft tissue only. Will follow up in podiatry clinic next week. Order for postop shoe to assist with transfers may be limited weightbearing with a postop shoe for the next 2 weeks. Attestations Medical Necessity Statement*: Osteomyelitis right fourth toe 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 Code Acute Enterprise Architect Manager for [facility] Diagnoses Diabetes mellitus type 1 E10.65 Diabetes mellitus complication status: with hyperglycemia 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 L97.514
[2021-01-20] MEDS: propranolol 20 mg Tablet PO ×2 (08:21→15:37)
[2021-01-20] MEDS: citalopram 20 mg Tablet PO (08:21)
[2021-01-20] MEDS: gabapentin 100 mg Capsule PO (08:23)
[2021-01-20] MEDS: pantoprazole DR 40 mg Tablet PO (08:23)
[2021-01-20] MEDS: BuSPIRONE 10 mg Tablet 15 MG PO (08:23)
[2021-01-20] MEDS: doxycycline 100 mg Tablet PO (08:23)
[2021-01-20] MEDS: duloxetine 30 mg Capsule PO (08:23)
[2021-01-20 08:24] VITALS: BP 164/90; PULSE 77
[2021-01-20] MEDS: cefdinir 300 MG CAPSULE PO (08:24)
[2021-01-20] MEDS: carvedilol 12.5 mg Tablet PO (08:24)
[2021-01-20] MEDS: amlodipine 10 mg Tablet PO (08:24)
[2021-01-20] MEDS: HYDROcodone-acetaminophen 5-325 mg Tablet 1 TAB PO (08:33)
--- NOTE | 2021-01-20 10:24 | P.PN_ITS ---
Subjective NPU Subjective: Interval history: Patient with reported interval history of some agitation overnight which the patient states this morning was related to pain. She denies any interval auditory or visual destinations, denies any delusions. She denies any interval sustained depressive symptoms but reports transient episodes of feeling low related to chronic medical issues, life stressors. She denies any current suicidal ideation or thoughts about self-harm. Patient reports tolerating medication well with no reports of any medication side effects. Patient reports some improvement with appetite stating that she ate some pudding and porras this morning and that her nausea has been resolving more. Mental Status Exam MSE Comments: Patient is sitting up on her bed, alert, good eye contact, wearing hospital gown, sitter at bedside Psychomotor activity is neither increased nor decreased, no agitation I feel okay, constricted affect, not labile Alert, oriented to person, place, time, situation Memory and concentration appear to be fair to intact based on interview Thought process, linear, no flight of ideas, no looseness of associations Thought content, no delusions, no hallucinations, does not appear to be attending to any internal stimuli, no suicidal or homicidal ideation Insight and judgment appear to be fair to intact Vitals/I&O/Wt Last Vital Signs Temp 98.6 F 01/20/21 05:04 Pulse 77 01/20/21 08:24 Resp 20 H 01/20/21 05:39 BP 164/90 01/20/21 08:24 Pulse Ox 96 01/20/21 05:04 01/19/21 01/20/21 01/20/21 22:59 06:59 14:59 Intake Total 1313.75 / 2363.75 120 / 2483.75 1130 / 1130 Output Total 600 / 650 Balance 1313.75 / 2313.75 -480 / 1833.75 1130 / 1130 Data NPU : 01/19/21 05:42 01/19/21 05:42 Micro: Microbiology 01/16/21 08:24 Gram Stain - Final Leg - #1 Tissue Culture - Final Strep agalactiae - (group b) Microbiology 01/16/21 08:24 Leg - #1 Gram Stain - Final 01/16/21 08:24 Leg - #1 Tissue Culture - Final Strep agalactiae - (group b) A&P Assessment and plan (1) Depression: Status: Acute Qualifiers: Depression Type: unspecified Qualified Code(s): F32.9 - Major depressive disorder, single episode, unspecified (2) Suicide attempt: Status: Acute (3) Intractable pain: Status: Acute (4) PTSD (post-traumatic stress disorder): Status: Acute (5) Diabetes mellitus type 1: Status: Chronic Qualifiers: Diabetes mellitus complication status: with hyperglycemia Qualified Code(s): E10.65 - Type 1 diabetes mellitus with hyperglycemia Additional A&P Information 40-year-old female with chronic pain, history of noncompliance, poorly control led type 1 diabetes with amputations, multiple acute and chronic medical stressors and financial stressors with recent report of suicidal ideation contingent on pain control. Patient with overnight episode of pain related agitation. Continues to deny any depressive symptoms and denies any suicidal ideation. Patient cites that her psychiatric symptoms and behavioral episodes are related to her uncontrolled pain; psychotropic medications have been monitored by psychiatry during this hospital stay. RECOMMEND outpatient medication management and therapy targeting development of more adaptive coping strategies related to ongoing life and medical stressors. Patient reported financial difficulties and lack of consistent follow-up do continue to elevate her risk as well as her maladaptive coping. CONTINUE current medication, continue to monitor Inpatient psychiatric hospitalization is not indicated per above given no psychiatric indication to mitigate risk given that patient routinely cites her uncontrolled pain as a reason for feeling suicidal. Patient communicated her understanding of the above recommendations as well as the need to contact a family member, call 911 or return to emergency department if she experiences worsening depressive symptoms or suicidal ideation. Psychiatry will continue to follow during this hospitalization Involuntary Hold Information 96 Hour Hold: 96 Hour Involuntary Admission: No Attestations NPU Medical Necessity Statement*: Primary team managing medical stabilization 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 Code Acute Applied Researcher for Traci Fwd Diagnoses Depression F32.9 Depression Type: unspecified Suicide attempt T14.91XA Intractable pain R52 PTSD (post-traumatic stress disorder) F43.10 Diabetes mellitus type 1 E10.65 Diabetes mellitus complication status: with hyperglycemia
[2021-01-20 11:12] LABS: Glucose Point of Care 161 mg/dL (70-110)
[2021-01-20 11:27] VITALS: BP 115/68; PULSE 71; RESP 18; TEMP 36.7; O2SAT 99
[2021-01-20 14:00] VITALS: BP 137/82; PULSE 73; RESP 16; TEMP 37.2; O2SAT 100
--- NOTE | 2021-01-20 15:19 | PM.DCS ---
Discharge Providers Date of Admission: 01/11/21 15:35 Date of Discharge: January 20, 2021 Attending Provider at Admission: Mele Friedman Attending Provider at Discharge: Jose A Moore MD Diagnoses at Discharge Discharge Diagnosis (1) Depression: Status: Acute Qualifiers: Depression Type: unspecified Qualified Code(s): F32.9 - Major depressive disorder, single episode, unspecified (2) Suicide attempt: Status: Acute (3) Intractable pain: Status: Acute (4) PTSD (post-traumatic stress disorder): Status: Acute (5) Diabetes mellitus type 1: Status: Chronic Permanent problem details: diagnosed age 15, history of peripheral neuropathy, gastroparesis and nephropathy Qualifiers: Diabetes mellitus complication status: with hyperglycemia Qualified Code(s): E10.65 - Type 1 diabetes mellitus with hyperglycemia Reason for Visit Reason for Visit: 2 SUICIDE ATTEMPTS Hospital Course Hospital Course 38-year-old female past medical history of CKD with a baseline creatinine of 1, type 1 diabetes mellitus, diabetic gastroparesis, history of diabetic foot ulcer post amputation, history of DKA hyperlipidemia, chronic nausea and vomiting because of diabetic gastroparesis who presented to the hospital on January 12 because of suicidal attempt. On on admission patient was in FIONA which was treated by IV fluids. After finishing IV fluids patient was transferred to neuropsych velasquez. Patient had a complicated hospitalization for which she required multiple transfer to [facility] because of different reasons. Patient has been struggling with resistant depression and other comorbid conditions such as nonhealing wound of stump which was seen by surgical team and patient underwent revision by Dr. Holley on January 16. Patient was also found to have ischemic ulcer of right foot with necrosis of bone concerning for osteomyelitis for which she was seen by Dr. Sin from podiatry and she underwent right fourth toe amputation. During hospitalization patient was managed medically for depression by psychiatric team. Patient has been cleared by psychiatric team to be discharged home with advised to follow-up as an outpatient. Patient is to take oral antibiotics with cefdinir and doxycycline for 4 more weeks with advised to follow-up with Dr. Sin as an outpatient, and wound care clinic at the earliest. Patient has been provided pain medications for 3 to 4 days with advised to follow-up with her primary care provider at the earliest for continuation of pain medications and possible referral for pain management as an outpatient. During hospitalization patient was found to have acute urinary retention for which multiple voiding trials were done but she continued to retain for which a Riojas has been placed. Patient has been asked to follow-up with Dr. Mercer as an outpatient. Physical Exam Const: COMMON NORMALS: no acute distress and patient oriented x3 EXAM LIMITATIONS: behavioral limitations GENERAL APPEARANCE: cooperative, comfortable and disheveled OTHER: Reclined in bed, appears comfortable, interacting, cooperative. HENMT: COMMON NORMALS: oropharynx normal Neck/C-Spine: COMMON NORMALS: no JVD Resp: COMMON NORMALS: normal respiratory effort and clear to auscultation bilaterally AUSCULTATION: clear to auscultation bilaterally Cardio: COMMON NORMALS: no JVD, regular rhythm, S1 normal heart sound present, S2 normal heart sound present and No murmurs present (Cardio) RHYTHM: regular rhythm HEART SOUNDS: S1 normal heart sound present and S2 normal heart sound present GI: COMMON NORMALS: Normal to inspection, nondistended, normoactive bowel sounds present, Soft to palpation and non-tender PALPATION: Yes Soft to palpation Extremity: COMMON NORMALS: no joint enlargement and no pedal edema OTHER: Left BKA. Right foot toe amputations. Neuro: COMMON NORMALS: patient oriented x3 and moves all extremities Skin: COMMON NORMALS: no rashes or lesions noted GENERAL SKIN EXAM: no rashes or lesions noted LESIONS: other (Excoriations on forearms and wrists. Excoriations on right foot/ankle. ) OTHER: Laceration, necrosis of right toe with bone exposure, foul-smelling drainage. Wound L BKA - ulceration w minimal necrosis, no sign surrounding erythema. Undermining. Urinary Catheter Management^: Riojas: Cath Placed During This Visit: yes Urinary Catheter Date of Insertion: 01/20/21 Urinary Catheter Time of Insertion: 12:00 Discharge Data Data Completed and Pending: Completed Studies During Hospitalization Category Date Time Status CT lumbar spine w o con* [id number] Routi ne Cat Scan 01/15/21 16:[address] thoracic spin wo con* [id number] Rout ine Cat Scan 01/15/21 16:37 Completed XR foot RT min 3V * [id number] Routine Exams 01/15/21 16:05 Completed XR knee LT 3V* [id number] Routine Exams 01/15/21 16:05 Completed XR lumbar spine 2 -3V* [id number] Routine Exams 01/11/21 19:44 Completed US renal BI* [id number] Urgent Ultrasound 01/12/21 19:44 Completed Pending at discharge Category Date Time Status Pathology: Surgic al [PTH] Routine Pth 01/19/21 07:38 Received Labs from last 24 hours 01/20/21 01/20/21 01/19/21 10:51 05:20 20:56 POC Glucose 161 H 86 131 H 01/19/21 15:04 POC Glucose 126 H Addt'l Data from Hospital Stay: Laboratory Results WBC 12.1 10^3/uL (4.0 -10.0) H 01/19/21 05:42 Corrected WBC Cancelled 01/14/21 01:51 RBC 4.27 10^6/uL (4.1 -5.3) 01/19/21 05:42 Hgb 11.8 g/dL (11.5-1 5.3) 01/19/21 05:42 Hct 36.9 % (37.0-47.0 ) L 01/19/21 05:42 MCV 86.4 fL (81-99) 01/19/21 05:42 MCH 27.6 pg (28.0-34. 0) L 01/19/21 05:42 MCHC 32.0 g/dL (30.0-3 6.0) 01/19/21 05:42 RDW 13.2 % (12.1-15.1 ) 01/19/21 05:42 Plt Count 513 10^3/cmm (130 -400) H 01/19/21 05:42 MPV 8.5 fL (7.4-10.4) 01/19/21 05:42 Gran % Cancelled 01/14/21 01:51 Neut % (Auto) 79.2 % 01/19/21 05:42 Lymph % (Auto) 13.7 % 01/19/21 05:42 [place] % (Auto) 5.9 % 01/19/21 05:42 Eos % (Auto) 0.5 % 01/19/21 05:42 Baso % (Auto) 0.4 % 01/19/21 05:42 Neut # (Auto) 9.58 10^3/uL (1.8 -7.7) H 01/19/21 05:42 Lymph # (Auto) 1.7 10^3/uL (0.8- 4.8) 01/19/21 05:42 [place] # (Auto) 0.7 10^3/uL (0.2- 0.9) 01/19/21 05:42 Eos # (Auto) 0.1 10^3/uL (0.0- 0.8) 01/19/21 05:42 Baso # (Auto) 0.1 10^3/uL (0.0- 0.1) 01/19/21 05:42 Absolute Gran (aut o) Cancelled 01/14/21 01:51 Nucleated RBC % (a uto) 0 % 01/19/21 05:42 Nucleated RBCs # 0.0 /100WBC 01/19/21 05:42 ESR 59 mm/hr (0-15) H 01/16/21 07:16 Sodium 134 mmol/L (136-1 45) L 01/19/21 05:42 Potassium 3.7 mmol/L (3.5-5 .1) 01/19/21 05:42 Chloride 97 mmol/L (98-107 ) L 01/19/21 05:42 Carbon Dioxide 22 mmol/L (22-29) 01/19/21 05:42 Anion Gap 18.7 (5-19) 01/19/21 05:42 BUN 15 mg/dL (6-20) 01/19/21 05:42 Creatinine 1.0 mg/dL (0.5-0. 9) H 01/19/21 05:42 GFR Calculation 60.8 mL/min (90-1 30) L 01/19/21 05:42 Glucose 133 mg/dL (65-115 ) H 01/19/21 05:42 POC Glucose 161 mg/dL (70-110 ) H 01/20/21 10:51 Calculated Osmolal ity 281 mOsm/kg (285- 295) L 01/19/21 05:42 Lactate 1.2 mmol/L (0.5-2 .2) 01/14/21 05:30 Calcium 9.4 mg/dL (8.5-10 .5) 01/19/21 05:42 Total Bilirubin 0.5 mg/dL (0.15-1 .2) 01/19/21 05:42 AST 18 U/L (0-32) 01/19/21 05:42 ALT 9 U/L (0-33) 01/19/21 05:42 Alkaline Phosphata se 115 IU/L (35-105) H 01/19/21 05:42 Creatine Kinase 81 U/L (26-192) 01/12/21 11:05 C-Reactive Protein 16.8 mg/L (0.0-4. 9) H 01/16/21 07:16 Total Protein 7.9 g/dL (6.6-8.7 ) 01/19/21 05:42 Albumin 3.7 g/dL (3.5-5.2 ) 01/19/21 05:42 Globulin 4.2 g/dL (1.3-4.6 ) 01/19/21 05:42 Urine Color Yellow (Yellow) 01/14/21 15:20 Urine Appearance Hazy (CLEAR) A 01/14/21 15:20 Urine pH 5 (5-7) 01/14/21 15:20 Ur Specific Gravit y 1.020 (1.005-1.0 30) 01/14/21 15:20 Urine Protein 3+ (Negative) H 01/14/21 15:20 Urine Glucose (UA) Norm (Normal) 01/14/21 15:20 Urine Ketones Negative (Negati ve) 01/14/21 15:20 Urine Blood Trace (Negative) H 01/14/21 15:20 Urine Nitrate Negative (Negati ve) 01/14/21 15:20 Urine Bilirubin Neg (Negative) 01/14/21 15:20 Urine Urobilinogen Norm mg/dL (Negat sade) 01/14/21 15:20 Ur Leukocyte Estephania ase 2+ (Negative) H 01/14/21 15:20 Urine RBC Rare /hpf (0-2) 01/14/21 15:20 Urine WBC 55-80 /hpf (0-5) H 01/14/21 15:20 Ur Squamous Epith Cells 0-4 /hpf (0-5) H 01/14/21 15:20 Amorphous Sediment Not Reportable 01/14/21 15:20 Urine Bacteria 3+ /hpf (NONE) H 01/14/21 15:20 Hyaline Casts 80-100 /lpf H 01/11/21 14:57 Ur Random Sodium 73 mmol/L 01/13/21 22:41 Urine Creatinine 418 mg/dL (28-217 ) H 01/13/21 22:41 Salicylates < 0.3 mg/dL (3-10 ) L 01/11/21 14:13 Urine Opiates Scre en Positive ng/mL (N egative) H 01/13/21 22:41 Acetaminophen < 5.0 ug/mL (10-3 0) L 01/11/21 14:13 Ur Barbiturates Sc reen Negative ng/mL (N egative) 01/13/21 22:41 Ur Phencyclidine S crn Negative ng/mL (N egative) 01/13/21 22:41 Ur Amphetamines Sc reen Negative ng/mL (N egative) 01/13/21 22:41 U Benzodiazepines Scrn Positive ng/mL (N egative) H 01/13/21 22:41 Urine Cocaine Scre en Negative ng/mL (N egative) 01/13/21 22:41 U Marijuana (THC) Screen Negative ng/mL (N egative) 01/13/21 22:41 Serum Ketones Negative (Negati ve) 01/14/21 05:30 Impressions Lumbar Spine X-Ray 01/11/21 19:44 IMPRESSION: 1. Very minimal degenerative changes otherwise normal lumbar spine study. Renal Ultrasound 01/12/21 19:44 IMPRESSION: Normal renal ultrasound. [place] distended urinary bladder. Foot X-Ray 01/15/21 16:05 IMPRESSION: Nonacute. Knee X-Ray 01/15/21 16:05 IMPRESSION: Nonacute. Lumbar Spine CT 01/15/21 16:37 IMPRESSION: No acute findings. Radiation Dose CTDIVOL = (mGy): DLP = 2093.04 (mGy-cm) Thoracic Spine CT 01/15/21 16:37 IMPRESSION: Unremarkable CT Spine. Radiation Dose CTDIVOL = (mGy): DLP = 1998.5 (mGy-cm) Microbiology 01/16/21 08:24 Leg - #1 Gram Stain - Final 01/16/21 08:24 Leg - #1 Tissue Culture - Final Strep agalactiae - (group b) 01/14/21 15:20 Urine,Clean Catch Urine Culture - Final Escherichia coli Vitals: Last Vital Signs Temp 99.0 F 01/20/21 14:00 Pulse 73 01/20/21 14:00 Resp 16 01/20/21 14:00 BP 137/82 01/20/21 14:00 Pulse Ox 100 01/20/21 14:00 Discharge Plan Discharge Patient Disposition: Home Condition: Stable Prescriptions: New hydrocodone-acetaminophen 5-325 mg Tablet 1 tab PO Q8H PRN (Reason: MODERATE to severe PAIN) 3 Days Qty: 10 RF: 0 doxycycline monohydrate 100 mg Tablet 100 mg PO 899,2099 28 Days Qty: 56 RF: 0 propranolol 20 mg Tablet 20 mg PO TID 30 Days Qty: 90 RF: 0 cefdinir 300 mg Capsule 300 mg PO 899,2099 28 Days Qty: 56 RF: 0 duloxetine 30 mg Capsule,Delayed Release(Dr/Ec) 30 mg PO 899,2099 30 Days Qty: 60 RF: 0 gabapentin 300 mg capsule 300 mg PO Q8H Qty: 90 RF: 0 Ultram 50 mg tablet 50 mg PO Q8H PRN (Reason: pain) Qty: 14 RF: 0 fluconazole 100 mg tablet 100 mg PO DAILY 14 Days RF: 0 Continued Lantus Solostar U-100 Insulin 100 unit/mL (3 mL) insulin pen 5 unit SUBCUT BEDTIME RF: 0 dicyclomine 20 mg tablet 20 mg PO TID Qty: 20 RF: 0 insulin lispro 100 unit/mL Insulin Pen See Rx Instructions .ROUTE .COMPLEX RF: 0 cholestyramine (with sugar) 4 gram Powder In Packet 4 g PO BID Qty: 60 RF: 0 cyclobenzaprine 10 mg Tablet 10 mg PO TID PRN (Reason: Muscle Spasms) Qty: 30 RF: 0 pantoprazole 40 mg Tablet,Delayed Release (Dr/Ec) 40 mg PO BID Qty: 60 RF: 0 promethazine 25 mg Tablet 25 mg PO Q6H PRN (Reason: Nausea) Qty: 30 RF: 0 citalopram 20 mg Tablet 20 mg PO DAILY 30 Days RF: 0 buspirone 10 mg Tablet 15 mg PO BID 30 Days Qty: 60 RF: 0 meloxicam 15 mg tablet 15 mg PO DAILY Qty: 15 RF: 0 glipizide 5 mg tablet 5 mg PO DAILY RF: 0 Prevalite 4 gram powder in packet 1 ea PO BID RF: 0 carvedilol 12.5 mg Tablet 12.5 mg PO BID Qty: 60 RF: 0 amlodipine 10 mg Tablet 10 mg PO DAILY Qty: 30 RF: 0 Discontinued metronidazole [Flagyl] 500 mg tablet 500 mg PO TID 14 Days Qty: 42 RF: 0 clarithromycin 500 mg tablet 500 mg PO BID 14 Days Qty: 28 RF: 0 metformin 500 mg tablet 500 mg PO BID RF: 0 sulfamethoxazole-trimethoprim 800-160 mg tablet 1 tab PO DAILY RF: 0 lisinopril 10 mg tablet 10 mg PO DAILY RF: 0 gabapentin 100 mg capsule 100 mg PO Q12H RF: 0 Discharge Orders: Discharge Order (Routine); Ordered 01/20/21 Ordered By: Jose A Moore Referrals: [place] [facility] [Other] [facility] [Outside] (Walk-in for initial assessment Mon-Fri from 7:30am to 3pm. State that you would like an assessment for services.) Dave Holley MD [Physician] - 02/03/21 8:30 am (Follow up with Dr. Holley at [facility] Wound Care) Rafael Sin DPM [Physician] - 01/26/21 9:00 am () Fredis Mercer MD [Physician] - ([facility] Urology will call patient with appointment.) Angelic Martinez MD [Physician] - 01/31/21 10:15 am (Provider at [facility] out of office until 01/30) Discharge Diet: Usual diet Discharge Activity: Increase activity as tolerated Patient Instructions: Propranolol (By mouth), Doxycycline (By mouth), Hydrocodone/Acetaminophen (By mouth), Gabapentin (By mouth), Tramadol (By mouth), Cefdinir (By mouth), Duloxetine (By mouth), Riojas Catheter Care, Toe Amputation (DC), Opioid Safety Activity Restrictions/Additional Instructions: Please follow-up with your primary care provider within next 1 week for continuation of pain management. Please follow-up with wound care clinic at earliest. He will have Riojas catheter replaced a time and see Dr. Mercer as an outpatient. If the Riojas catheter remains in for more than 2 weeks it needs to be replaced. You should follow-up with a primary care provider for possible referral for pain management team. Discharge Attestations Time Spent in Discharge Care*: greater than 30 min Status at Discharge: Cognitive status at discharge: cognitively intact, Behavioral status at discharge: cooperative, Quality Metrics Clinical Quality Measures During this hospital stay, did patient experience: None 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 Code Acute Chg FW DC note Diagnoses Depression F32.9 Depression Type: unspecified Suicide attempt T14.91XA Intractable pain R52 PTSD (post-traumatic stress disorder) F43.10 Diabetes mellitus type 1 E10.65 Diabetes mellitus complication status: with hyperglycemia
[2021-01-20 16:00] VITALS: BP 128/81; PULSE 73; RESP 17; TEMP 36.9; O2SAT 99
== END 2021-01-20 17:37 | disposition home or self-care (01) | DRG 902 ==
LOC: ER 13:57 → MEDSURG 17:46 → NP 01-12 16:26 → MEDSURG 01-14 04:47 → NP 01-17 21:04 → MEDSURG 01-19 02:53
PROVIDERS: Internal Medicine; Podiatrist Foot & Ankle Surgery; Psychiatry & Neurology Psychiatry; Surgery; Admitting Provider Internal Medicine; Emergency Provider Family Medicine; Visit Provider Student in an Organized Health Care Education/Training Program
PROC: 0JBP0ZZ Excision of Left Lower Leg Subcutaneous Tissue and Fascia, Open Approach (ICD-10-PCS; principal; 2021-01-16 08:00)
PROC: 0Y6V0Z0 Detachment at Right 4th Toe, Complete, Open Approach (ICD-10-PCS; principal; 2021-01-19 07:00)
DX: T14.91XA Suicide attempt, initial encounter (principal); N17.9 Acute kidney failure, unspecified; M86.171 Other acute osteomyelitis, right ankle and foot; T87.44 Infection of amputation stump, left lower extremity; M84.477A Pathological fracture, right toe(s), initial encounter for fracture; N39.0 Urinary tract infection, site not specified; X83.8XXA Intentional self-harm by other specified means, initial encounter; G89.29 Other chronic pain; M54.5 Low back pain; E10.22 Type 1 diabetes mellitus with diabetic chronic kidney disease; E10.65 Type 1 diabetes mellitus with hyperglycemia; I12.9 Hypertensive chronic kidney disease with stage 1 through stage 4 chronic kidney disease, or unspecified chronic kidney disease; N18.2 Chronic kidney disease, stage 2 (mild); E10.39 Type 1 diabetes mellitus with other diabetic ophthalmic complication; E10.43 Type 1 diabetes mellitus with diabetic autonomic (poly)neuropathy; E10.42 Type 1 diabetes mellitus with diabetic polyneuropathy; E10.69 Type 1 diabetes mellitus with other specified complication; K31.84 Gastroparesis; I25.10 Atherosclerotic heart disease of native coronary artery without angina pectoris; Z95.5 Presence of coronary angioplasty implant and graft; E78.5 Hyperlipidemia, unspecified; Z89.512 Acquired absence of left leg below knee; Z87.891 Personal history of nicotine dependence; F32.9 Major depressive disorder, single episode, unspecified; Z86.14 Personal history of Methicillin resistant Staphylococcus aureus infection; E86.0 Dehydration; K29.70 Gastritis, unspecified, without bleeding; B95.62 Methicillin resistant Staphylococcus aureus infection as the cause of diseases classified elsewhere; B96.20 Unspecified Escherichia coli [E. coli] as the cause of diseases classified elsewhere; B95.1 Streptococcus, group B, as the cause of diseases classified elsewhere; T36.8X5A Adverse effect of other systemic antibiotics, initial encounter; F60.89 Other specific personality disorders; F43.10 Post-traumatic stress disorder, unspecified; D63.1 Anemia in chronic kidney disease
CPT/HCPCS: 36415; 36416; 51702; 51798; 72100; 72128; 72131; 73562; 73630; 76770; 80053; 80306; 80307; 81001; 82009; 82550; 82570; 82962; 83605; 84300; 85025; 85651; 86140; 87070; 87077; 87086; 87176; 87186; 87205; 88305; 93005; 96361; 96372; 96374; 96375; 99285; J0360; J0690; J1170; J1200; J1815 ×2; J2060; J2250; J2270; J2360; J2405; J2704; J2765; J3010; J3486; J3490; J7030; J7050; L3260; Q0162

== ENCOUNTER 2021-01-21 10:41 | Emergency (ER) | payer MEDICAID, SELFPAY ==
[2021-01-21 10:45] VITALS: BP 135/95; PULSE 104; RESP 24; TEMP 36.8; O2SAT 94; BMI 26.6
[2021-01-21 10:56] VITALS: BP 143/98; PULSE 87; RESP 24; O2SAT 97
--- NOTE | 2021-01-21 11:15 | CTR_ITS ---
PROCEDURE INFORMATION: Exam: CT Head Without Contrast Exam date and time: 01/21/2021 12:36 PM Age: 40 years old Clinical indication: Injury or trauma; Fall; Blunt trauma (contusions or hematomas); Additional info: Head contusion to forehead self inflicted. TECHNIQUE: Imaging protocol: Computed tomography of the head without contrast. Axial, coronal and sagittal reformatted images were created and reviewed. Radiation optimization: All CT scans at this facility use at least one of these dose optimization techniques: automated exposure control; mA and/or kV adjustment per patient size (includes targeted exams where dose is matched to clinical indication); or iterative reconstruction. COMPARISON: No relevant prior studies available. RADIATION DOSE METRICS: Total DLP (mGy-cm): 908.98 FINDINGS: Brain: No CT evidence of acute intracranial hemorrhage or acute territorial infarction. No significant mass effect or midline shift. Basal cisterns patent. Cerebral ventricles: Prominence of the cortical sulci, cisterns and ventricular system, consistent with cerebral and cerebellar volume loss. Paranasal sinuses: Minimal ethmoid mucosal thickening. Mastoid air cells: Grossly unremarkable. Vasculature: Calcific atherosclerotic disease in the cavernous internal carotid arteries, as well as the vertebro-basilar system. Bones/joints: No acute osseous abnormality. Soft tissues: Grossly unremarkable. CT/CT head wo con* [id number] IMPRESSION: 1. No CT evidence of acute intracranial pathology. 2. Additional findings, as above. Radiation Dose CTDIVOL = (mGy): DLP = 908.98 (mGy-cm)
--- NOTE | 2021-01-21 11:15 | XRR_ITS ---
PROCEDURE INFORMATION: Exam: XR Chest Exam date and time: 01/21/2021 11:25 AM Age: 40 years old Clinical indication: Shortness of breath; Additional info: Reduced breath sounds TECHNIQUE: Imaging protocol: XR of the chest. Views: 1 view. COMPARISON: CR (CHEST, ) 01/08/2021 9:38 PM FINDINGS: Lungs: Unremarkable. No consolidation. Pleural spaces: Unremarkable. No pleural effusion. No pneumothorax. Heart/Mediastinum: Unremarkable. No cardiomegaly. Bones/joints: Unremarkable. XR/XR chest 1V portable [id number] IMPRESSION: No acute findings.
--- NOTE | 2021-01-21 11:15 | CTR_ITS ---
PROCEDURE INFORMATION: Exam: CT Abdomen And Pelvis With Contrast Exam date and time: 01/21/2021 12:36 PM Age: 40 years old Clinical indication: Abdominal pain; Localized; Right lower quadrant (rlq); Prior surgery; Surgery type: Gb; Additional info: Typical general abd/rlq/low back pain TECHNIQUE: Imaging protocol: Computed tomography of the abdomen and pelvis with contrast. Radiation optimization: All CT scans at this facility use at least one of these dose optimization techniques: automated exposure control; mA and/or kV adjustment per patient size (includes targeted exams where dose is matched to clinical indication); or iterative reconstruction. Contrast material: VISI 320; Contrast volume: 95 ml; Contrast route: INTRAVENOUS (IV); COMPARISON: CT abdomen pelvis w con* [id number] 01/08/2021 11:50 PM RADIATION DOSE METRICS: Total DLP (mGy-cm): 1651.77 FINDINGS: Liver: Normal. No mass. Gallbladder and bile ducts: Cholecystectomy. Normal bile ducts. Pancreas: Normal. No ductal dilation. Spleen: Normal. No splenomegaly. Adrenal glands: Normal. No mass. Kidneys and ureters: Normal. No hydronephrosis. Stomach and bowel: Unremarkable. No obstruction. No mucosal thickening. Appendix: The appendix is identified and is normal. Intraperitoneal space: Unremarkable. No free air. No significant fluid collection. Vasculature: There is mild calcification of the aorta. There is no aneurysm. Lymph nodes: Unremarkable. No enlarged lymph nodes. Urinary bladder: A Riojas catheter is present in the urinary bladder. Reproductive: Unremarkable as visualized. Bones/joints: Unremarkable. No acute fracture. Soft tissues: There is a small uncomplicated fat containing umbilical hernia. The 1.5 cm subcutaneous cyst is again seen in the left lower anterior abdominal wall. CT/CT abdomen pelvis w con* [id number] IMPRESSION: No acute abnormalities are seen in the abdomen and pelvis. Radiation Dose CTDIVOL = (mGy): DLP = 1651.77 (mGy-cm)
--- NOTE | 2021-01-21 11:24 | ECG_ITS ---
[facility] Test Date: 2021-01-21 Pat Name: Cherrie Solomon Department: Room: Gender: Female Sheet Catcher: : [id number] Requested By: Karan Gracia Order Number: [id number] Jeff MD: MESFIN HERMOSILLO Measurements Intervals Darragh Rate: 93 P: NE: QRS: 6 QRSD: 98 T: 112 QT: 352 QTc: 439 Interpretive Statements Sinus RHYTHM Artifact Electronically Signed On 01-21-2021 20:19:58 CDT by MESFIN HERMOSILLO [email or web address]
--- NOTE | 2021-01-21 11:27 | CTR_ITS ---
PROCEDURE INFORMATION: Exam: CT Cervical Spine Without Contrast Exam date and time: 01/21/2021 12:36 PM Age: 40 years old Clinical indication: Neck pain TECHNIQUE: Imaging protocol: Computed tomography images of the cervical spine without contrast. Axial, coronal and sagittal reformatted images were created and reviewed. Radiation optimization: All CT scans at this facility use at least one of these dose optimization techniques: automated exposure control; mA and/or kV adjustment per patient size (includes targeted exams where dose is matched to clinical indication); or iterative reconstruction. COMPARISON: [place] thyroid [id number] 02/25/2019 11:24 AM RADIATION DOSE METRICS: Total DLP (mGy-cm): 598.53 FINDINGS: Bones/joints: Osteopenia. Normal cervical lordosis. No CT evidence of acute fracture, dislocation or subluxation. Minimal retrolisthesis of C5 on C6 and anterolisthesis of C7 on T1. Alignment otherwise anatomic. Vertebral body heights maintained. Discs/Spinal canal/Neural foramina: Mild multilevel degenerative changes, characterized by disc space narrowing, osteophytosis and uncovertebral and facet joint hypertrophy. Mild multilevel spinal canal and neural foraminal narrowing. Thyroid gland: Mildly nodular. Lungs: Grossly unremarkable. Soft tissues: Grossly unremarkable. CT/CT cervical spin wo con* [id number] IMPRESSION: 1. No CT evidence of acute cervical spine traumatic injury. 2. Additional findings, as above. Radiation Dose CTDIVOL = (mGy): DLP = 598.53 (mGy-cm)
--- NOTE | 2021-01-21 11:39 | W.ED.ABDPA2 ---
HPI - Abdominal Pain General: Chief Complaint: Abdominal Pain Stated Complaint: SELF INFLICTED LACS TO HEAD Time Seen by Provider: 01/21/21 10:57 History of Present Illness: HPI narrative: The patient is a 40-year-old female with past medical history type 1 diabetes with multiple complications including left BKA, right multiple toe amputations, diabetic gastroparesis, blindness, nephropathy. She comes to the ER complaining of chronic pain after being discharged yesterday. She has scratched her left forearm and banged her head and continues to complain of her typical pain. She also says she is constipated and has not passed a bowel movement for over 10 days. MD elicited complaint: abdominal pain Pain Consistency: constant Location: RLQ Quality: sharp Radiation: back Exacerbating factors: nothing Relieving factors: nothing Associated Symptoms: Reports nausea and vomiting Related Data: Date of Last Menstrual Period: 12/17/20 Review of Systems General: Reports: 10 or more systems reviewed and unremarkable except in HPI and below Const: Denies: fatigue Eyes: Denies: change in vision, blurry vision or eye redness ENMT: Denies: throat pain, swelling of lips/tongue, ear or mastoid pain or nasal congestion Card: Denies: chest pain, palpitations, irregular heart rhythm, edema, dyspnea on exertion or orthopnea Resp: Denies: dyspnea, productive cough or non-productive cough GI: Reports: abdominal pain, nausea and vomiting : Denies: flank pain, difficulty voiding, urinary frequency or urinary urgency Musc: Denies: neck pain, back pain, extremity pain, joint pain, joint redness, limited range of motion or muscle weakness Skin/Breast: Denies: rash, pruritus, erythema, skin pain or skin tenderness Neuro: Denies: headache(s), numbness in extremities, weakness in extremities, sensory changes, difficulty walking, dizziness, confusion or Slurred speech present Psych: Denies: anxiety or depression Endo: Denies: polyuria All/Imm: Denies: urticaria, throat swelling or tongue swelling PFSH ED PFSH: Medical History Acute kidney injury FIONA (acute kidney injury) Back pain CKD (chronic kidney disease) stage 2, GFR 60-89 ml/min baseline Cr is around 1.0 Coronary artery disease hx of stenting Diabetes mellitus type 1 diagnosed age 15, history of peripheral neuropathy, gastroparesis and nephropathy Diabetic foot ulcer s/p surgical intervention and eventual amputation Diabetic gastroparesis Diabetic ophthalmopathy DKA (diabetic ketoacidoses) Foot osteomyelitis, right Gastroparesis Hyperlipidemia Hypertension 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 Nausea & vomiting Non-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 PTSD (post-traumatic stress disorder) Suicidal ideation Toe infection Surgical History Below-knee amputation of left lower extremity H/O esophagogastroduodenoscopy (12/31/20) Bile reflux gastritis, grade B esophagitis H/O exploratory laparotomy x 3 History of amputation of right forefoot Hx of cholecystectomy Previous section x 3 S/P coronary artery stent placement x 1 S/P percutaneous endoscopic gastrostomy (PEG) tube placement Family History Unknown Diabetes extensive, type II Other CHF (congestive heart failure) Social History Smoking and tobacco status: former smoker Quit status (tobacco): has quit using tobacco Former quit date comment: 15 yrs ago Alcohol intake: former Former alcohol use details: 15 yrs ago Household members: spouse Marital status: Sexually active: Yes (1, ) Female Reproductive History: Date of last menstrual period: 12/17/20 Physical Exam Const: COMMON NORMALS: no acute distress, average body habitus, patient oriented x3, no limitations, alert and well nourished GENERAL APPEARANCE: cooperative, comfortable and well developed ORIENTATION/CONSCIOUSNESS: Yes awake, Yes oriented to person, Yes oriented to place and Yes oriented to time HENMT: COMMON NORMALS: normocephalic, external ears normal and Normal external nose present HEAD & SCALP: normal to inspection and normocephalic NOSE: Normal external nose present EXTERNAL EAR: Yes external ears normal MOUTH: Normal oral and palatal mucosa present THROAT: posterior oropharynx normal Eye: COMMON NORMALS: Equal, round and reactive pupils present and EOMs intact bilaterally GENERAL EYE: appearance normal, both eyes and all related structures PUPIL: Yes Equal, round and reactive pupils present OTHER: chronic blindness Neck/C-Spine: COMMON NORMALS: full ROM, no lymphadenopathy, no meningeal signs and no JVD GENERAL: Yes normal visual inspection Lymph: LYMPHATIC: no lymphadenopathy noted Chest: COMMONS NORMALS: normal inspection of the chest and normal palpation of entire chest wall Resp: COMMON NORMALS: normal respiratory effort, No retractions, No use of accessory muscles, clear to auscultation bilaterally and percussion normal EFFORT & INSPECTION: Yes able to speak in complete sentences AUSCULTATION: clear to auscultation bilaterally PERCUSSION: percussion normal Cardio: COMMON NORMALS: no JVD, regular rate, regular rhythm, S1 normal heart sound present, S2 normal heart sound present and Peripheral pulses 2+ throughout RATE: regular rate RHYTHM: regular rhythm HEART SOUNDS: S1 normal heart sound present and S2 normal heart sound present PERIPHERAL PULSES: Peripheral pulses 2+ throughout GI: COMMON NORMALS: Normal to inspection, nondistended, normoactive bowel sounds present, Soft to palpation, non-tender and no masses INSPECTION: Yes normal to inspection PALPATION: Yes Soft to palpation : COMMON NORMALS: Yes no CVA tenderness BLADDER/KIDNEY EXAM: Yes no CVA tenderness Back/Pelvis: COMMON NORMALS: no CVA tenderness, thoracic and lumbar spine normal to inspection, no thoracic nor lumbar tenderness and thoraco-lumbar ROM normal Extremity: COMMON NORMALS: normal to inspection, full ROM, capillary refill normal, no joint enlargement and no pedal edema NARRATIVE EXTREMITY EXAM: Left lower extremity BKA with stump. There is a small hole in her stump which she had surgically revised a few days ago during her inpatient stay. Right multiple toes chronically amputated with one recent toe amputation appropriately healing. Sutures in place. Left forearm scratches from her scratching her forearm they are all superficial. GENERAL: Yes normal exam except as noted Neuro: COMMON NORMALS: patient oriented x3, CN's II-XII intact bilaterally, moves all extremities, no focal motor deficits, no sensory deficits noted and gait normal SENSORIUM/ORIENTATION: Yes alert, Yes oriented to person, Yes oriented to place and Yes oriented to time MENINGEAL SIGNS: Yes no meningeal signs Psych: COMMON NORMALS: mental status grossly normal, Normal thought process present, cooperative, normal affect and speech normal ATTITUDE: Yes calm SPEECH: Yes normal speech THOUGHT PROCESS: Normal thought process present Skin: COMMON NORMALS: no rashes or lesions noted NARRATIVE SKIN EXAM: Mild abrasion to forehead from her hitting herself in the forehead no significant abrasion likely a mild contusion. GENERAL SKIN EXAM: no rashes or lesions noted Course Vital Signs: Vital signs: Vital Signs Temperature 98.2 F 01/21/21 10:45 Pulse Rate 84 01/21/21 11:55 Respiratory Rate 22 H 01/21/21 11:55 Blood Pressure 148/73 01/21/21 11:55 Pulse Oximetry 97 01/21/21 11:55 MDM - Abdominal Pain MDM Narrative: Medical decision making narrative: Ms. Solomon came in with her typical complaints of low back pain and low right belly pain. She was given IV fluids as well as she usually has an acute kidney injury. Creatinine was mildly bumped at 1.2. White count 11.4. She was told she would not be receiving narcotics as she does not have any acute injury requiring them. She was given Haldol for control of her pain which worked as intended and she was much calmer. She also had scratching to her left forearm and she had banged her head against a wall. She was evaluated by Dr. Alexander as she also complained of suicidal thoughts of her pain is not controlled. He did not feel she was appropriate for admission and recommended outpatient follow-up of her problems. She is denying suicidal ideations. She requested to leave AGAINST MEDICAL ADVICE and signed and left. Lab Data: Labs: Lab Results 01/21/21 01/21/21 01/21/21 Range/Units 11:41 11:41 11:41 WBC 11.4 H (4.0-10.0) 10^3/ uL RBC 3.94 L (4.1-5.3) 10^6/u L Hgb 11.0 L (11.5-15.3) g/dL Hct 33.5 L (37.0-47.0) % MCV 85.0 (81-99) fL MCH 27.9 L (28.0-34.0) pg MCHC 32.8 (30.0-36.0) g/dL RDW 13.5 (12.1-15.1) % Plt Count 445 H (130-400) 10^3/c mm MPV 8.7 (7.4-10.4) fL Neut % (Auto) 77.7 % Lymph % (Auto) 14.1 % [place] % (Auto) 6.6 % Eos % (Auto) 0.8 % Baso % (Auto) 0.4 % Neut # (Auto) 8.83 H (1.8-7.7) 10^3/u L Lymph # (Auto) 1.6 (0.8-4.8) 10^3/u L [place] # (Auto) 0.8 (0.2-0.9) 10^3/u L Eos # (Auto) 0.1 (0.0-0.8) 10^3/u L Baso # (Auto) 0.1 (0.0-0.1) 10^3/u L Nucleated RBC % (a uto) 0 % Nucleated RBCs # 0.0 /100WBC Sodium 133 L (136-145) mmol/L Potassium 3.4 L (3.5-5.1) mmol/L Chloride 95 L (98-107) mmol/L Carbon Dioxide 22 (22-29) mmol/L Anion Gap 19.4 H (5-19) BUN 16 (6-20) mg/dL Creatinine 1.2 H (0.5-0.9) mg/dL GFR Calculation 49.3 L (90-130) mL/min Glucose 114 (65-115) mg/dL Calculated Osmolal ity 278 L (285-295) mOsm/k g Calcium 9.3 (8.5-10.5) mg/dL Total Bilirubin 0.4 (0.15-1.2) mg/dL AST 28 (0-32) U/L ALT 11 (0-33) U/L Alkaline Phosphata se 112 H (35-105) IU/L Troponin T Baselin e 64 H (0-10) ng/L Troponin T 120 Min [place] (0-10) ng/L Delta Troponin T (0-10) ABS# Total Protein 7.6 (6.6-8.7) g/dL Albumin 3.6 (3.5-5.2) g/dL Globulin 4.0 (1.3-4.6) g/dL Lipase 41 (13-60) U/L Urine Color (Yellow) Urine Appearance (CLEAR) Urine pH (5-7) Ur Specific Gravit y (1.005-1.030) Urine Protein (Negative) Urine Glucose (UA) (Normal) Urine Ketones (Negative) Urine Blood (Negative) Urine Nitrate (Negative) Urine Bilirubin (Negative) Urine Urobilinogen (Negative) mg/dL Ur Leukocyte Estephania ase (Negative) Urine RBC (0-2) /hpf Urine WBC (0-5) /hpf Ur Squamous Epith Cells (0-5) /hpf Calcium Oxalate Cr ystal /hpf Amorphous Sediment Urine Bacteria (NONE) /hpf Urine Mucus /hpf Salicylates < 0.3 L (3-10) mg/dL Urine Opiates Scre en (Negative) ng/mL Acetaminophen < 5.0 L (10-30) ug/mL Ur Barbiturates Sc reen (Negative) ng/mL Ur Phencyclidine S crn (Negative) ng/mL Ur Amphetamines Sc reen (Negative) ng/mL U Benzodiazepines Scrn (Negative) ng/mL Urine Cocaine Scre en (Negative) ng/mL U Marijuana (THC) Screen (Negative) ng/mL Ethyl Alcohol < 10 (0-10) mg/dL 01/21/21 01/21/21 01/21/21 Range/Units 12:02 12:02 14:30 WBC (4.0-10.0) 10^3/ uL RBC (4.1-5.3) 10^6/u L Hgb (11.5-15.3) g/dL Hct (37.0-47.0) % MCV (81-99) fL MCH (28.0-34.0) pg MCHC (30.0-36.0) g/dL RDW (12.1-15.1) % Plt Count (130-400) 10^3/c mm MPV (7.4-10.4) fL Neut % (Auto) % Lymph % (Auto) % [place] % (Auto) % Eos % (Auto) % Baso % (Auto) % Neut # (Auto) (1.8-7.7) 10^3/u L Lymph # (Auto) (0.8-4.8) 10^3/u L [place] # (Auto) (0.2-0.9) 10^3/u L Eos # (Auto) (0.0-0.8) 10^3/u L Baso # (Auto) (0.0-0.1) 10^3/u L Nucleated RBC % (a uto) % Nucleated RBCs # /100WBC Sodium (136-145) mmol/L Potassium (3.5-5.1) mmol/L Chloride (98-107) mmol/L Carbon Dioxide (22-29) mmol/L Anion Gap (5-19) BUN (6-20) mg/dL Creatinine (0.5-0.9) mg/dL GFR Calculation (90-130) mL/min Glucose (65-115) mg/dL Calculated Osmolal ity (285-295) mOsm/k g Calcium (8.5-10.5) mg/dL Total Bilirubin (0.15-1.2) mg/dL AST (0-32) U/L ALT (0-33) U/L Alkaline Phosphata se (35-105) IU/L Troponin T Baselin e (0-10) ng/L Troponin T 120 Min [place] 57.06 H (0-10) ng/L Delta Troponin T -6.94 L (0-10) ABS# Total Protein (6.6-8.7) g/dL Albumin (3.5-5.2) g/dL Globulin (1.3-4.6) g/dL Lipase (13-60) U/L Urine Color Freda (Yellow) Urine Appearance Cloudy (CLEAR) Urine pH 5 (5-7) Ur Specific Gravit y 1.020 (1.005-1.030) Urine Protein 3+ H (Negative) Urine Glucose (UA) 1+ (Normal) Urine Ketones 1+ H (Negative) Urine Blood 3+ H (Negative) Urine Nitrate Negative (Negative) Urine Bilirubin 1+ H (Negative) Urine Urobilinogen 1 H (Negative) mg/dL Ur Leukocyte Estephania ase Negative (Negative) Urine RBC 25-40 H (0-2) /hpf Urine WBC 15-25 H (0-5) /hpf Ur Squamous Epith Cells 0-4 H (0-5) /hpf Calcium Oxalate Cr ystal 10-15 H /hpf Amorphous Sediment Not Reportable Urine Bacteria 2+ H (NONE) /hpf Urine Mucus 2+ /hpf Salicylates (3-10) mg/dL Urine Opiates Scre en Positive H (Negative) ng/mL Acetaminophen (10-30) ug/mL Ur Barbiturates Sc reen Negative (Negative) ng/mL Ur Phencyclidine S crn Negative (Negative) ng/mL Ur Amphetamines Sc reen Negative (Negative) ng/mL U Benzodiazepines Scrn Negative (Negative) ng/mL Urine Cocaine Scre en Negative (Negative) ng/mL U Marijuana (THC) Screen Negative (Negative) ng/mL Ethyl Alcohol (0-10) mg/dL Discharge Plan Discharge Patient Disposition: Left Against Medical Advice Clinical Impression: Chronic abdominal pain, Self-inflicted injury, Contusion of head Prescriptions: No Action Lantus Solostar U-100 Insulin 100 unit/mL (3 mL) insulin pen 5 unit SUBCUT BEDTIME RF: 0 dicyclomine 20 mg tablet 20 mg PO TID Qty: 20 RF: 0 insulin lispro 100 unit/mL Insulin Pen See Rx Instructions .ROUTE .COMPLEX RF: 0 cholestyramine (with sugar) 4 gram Powder In Packet 4 g PO BID Qty: 60 RF: 0 cyclobenzaprine 10 mg Tablet 10 mg PO TID PRN (Reason: Muscle Spasms) Qty: 30 RF: 0 pantoprazole 40 mg Tablet,Delayed Release (Dr/Ec) 40 mg PO BID Qty: 60 RF: 0 promethazine 25 mg Tablet 25 mg PO Q6H PRN (Reason: Nausea) Qty: 30 RF: 0 citalopram 20 mg Tablet 20 mg PO DAILY 30 Days RF: 0 buspirone 10 mg Tablet 15 mg PO BID 30 Days Qty: 60 RF: 0 meloxicam 15 mg tablet 15 mg PO DAILY Qty: 15 RF: 0 glipizide 5 mg tablet 5 mg PO DAILY RF: 0 Prevalite 4 gram powder in packet 1 ea PO BID RF: 0 hydrocodone-acetaminophen 5-325 mg Tablet 1 tab PO Q8H PRN (Reason: MODERATE to severe PAIN) 3 Days Qty: 10 RF: 0 doxycycline monohydrate 100 mg Tablet 100 mg PO 899,2099 28 Days Qty: 56 RF: 0 propranolol 20 mg Tablet 20 mg PO TID 30 Days Qty: 90 RF: 0 cefdinir 300 mg Capsule 300 mg PO 00,2099 28 Days Qty: 56 RF: 0 duloxetine 30 mg Capsule,Delayed Release(Dr/Ec) 30 mg PO 00,2099 30 Days Qty: 60 RF: 0 gabapentin 300 mg capsule 300 mg PO Q8H Qty: 90 RF: 0 tramadol [Ultram] 50 mg tablet 50 mg PO Q8H PRN (Reason: pain) Qty: 14 RF: 0 carvedilol 12.5 mg Tablet 12.5 mg PO BID Qty: 60 RF: 0 amlodipine 10 mg Tablet 10 mg PO DAILY Qty: 30 RF: 0 fluconazole 100 mg tablet 100 mg PO DAILY 14 Days RF: 0 Patient Instructions: Abdominal Pain (ED) 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 Code ED Cash Applications Representative for Kim Fwd Exam Comprehensive
[2021-01-21 11:54] LABS: Basophils # 0.1 10^3/uL (0.0-0.1); Basophils % 0.4 %; Eosinophils # 0.1 10^3/uL (0.0-0.8); Eosinophils % 0.8 %; Hematocrit 33.5 % (37.0-47.0); Lymphocytes # 1.6 10^3/uL (0.8-4.8); Lymphocytes % 14.1 %; Mean Corpuscular HGB Conc 32.8 g/dL (30.0-36.0); Mean Corpuscular Hemoglobin 27.9 pg (28.0-34.0); Mean Platelet Volume 8.7 fL (7.4-10.4); Monocytes # 0.8 10^3/uL (0.2-0.9); Monocytes % 6.6 %; Neutrophils # 8.83 10^3/uL (1.8-7.7); Neutrophils % 77.7 %; Nucleated Red Blood Cells % 0 %; Platelet Count 445 10^3/cmm (130-400); Red Blood Count 3.94 10^6/uL (4.1-5.3); Red Cell Distribution Width 13.5 % (12.1-15.1); White Blood Count 11.4 10^3/uL (4.0-10.0)
[2021-01-21 11:55] VITALS: BP 148/73; PULSE 84; RESP 22; O2SAT 97
--- NOTE | 2021-01-21 11:56 | PC.NURSE ---
Sitter at doorway
[2021-01-21] MEDS: ondansetron 2 mg/ML SDV 2 mL 4 MG IVP (11:57)
[2021-01-21] MEDS: haloperidol inj 5 mg/mL INJ 1 mL 2.5 MG IM (11:57)
[2021-01-21] MEDS: sodium chloride 0.9% 1,000 ML 999 ML IV (11:57)
[2021-01-21 12:14] LABS: Alanine Aminotransferase 11 U/L (0-33); Albumin Level 3.6 g/dL (3.5-5.2); Alkaline Phosphatase 112 IU/L (35-105); Aspartate Amino Transferase 28 U/L (0-32); Blood Urea Nitrogen 16 mg/dL (6-20); Calcium 9.3 mg/dL (8.5-10.5); Carbon Dioxide 22 mmol/L (22-29); Chloride 95 mmol/L (98-107); Glomerular Filtration Rate 49.3 mL/min (90-130); Glucose 114 mg/dL (65-115); Lipase 41 U/L (13-60); Osmolality Calculated 278 mOsm/kg (285-295); Sodium 133 mmol/L (136-145); Total Bilirubin 0.4 mg/dL (0.15-1.2); Total Protein 7.6 g/dL (6.6-8.7); Troponin(5th) Baseline 64 ng/L (0-10)
[2021-01-21 12:16] LABS: Acetaminophen < 5.0 ug/mL (10-30); Alcohol Level < 10 mg/dL (0-10); Salicylate < 0.3 mg/dL (3-10)
[2021-01-21 12:18] LABS: Anion Gap 19.4 (5-19); Potassium 3.4 mmol/L (3.5-5.1)
[2021-01-21 12:26] LABS: Urine Appearance Cloudy (CLEAR); Urine Color Amber (Yellow); pH Urine 5 (5-7)
[2021-01-21 12:27] LABS: Add Urine Microscopic? YES; Bilirubin Urine 1+ (Negative); Blood Urine 3+ (Negative); Glucose Urine UA 1+ (Normal); Ketones Urine 1+ (Negative); Leukocyte Esterase Urine Negative (Negative); Nitrate Urine Negative (Negative); Protein Urine 3+ (Negative); Urobilinogen Urine 1 mg/dL (Negative)
[2021-01-21 12:31] LABS: Bacteria Urine 2+ /hpf; Mucus Urine 2+ /hpf; RBC Urine 25-40 /hpf (0-2); Squamous Epithelial Cell Urine 0-4 /hpf (0-5); WBC Urine 15-25 /hpf (0-5)
[2021-01-21 12:32] LABS: Add Urine Culture? Yes
[2021-01-21 12:46] LABS: Amphetamines Screen Urine Negative (Negative); Barbiturates Screen Urine Negative (Negative); Benzodiazepines Screen Urine Negative (Negative); Cocaine Screen Urine Negative (Negative); Opiate Screen Urine Positive (Negative); PCP Screen Urine Negative (Negative); THC Screen Urine Negative (Negative)
[2021-01-21] MEDS: iodixanol 320 mg/mL 100mL Btl IV (12:51)
--- NOTE | 2021-01-21 13:41 | PM.PSYCN ---
Providers/Reason for Consult Consulting Physican/Specialty*: Alex Alexander DO Reason for Consult*: Acting out behavior secondary to ongoing acute pain Requesting Physcian: Dr. Gracia/ED Psych Consult HPI History of Present Illness Cherrie Solomon is a 40 year old female with chronic pain, history of noncompliance, poorly controlled type 1 diabetes with amputations, multiple acute and chronic medical stressors and financial stressors with intermittent reports of suicidal ideation and acting out behavior contingent on pain control. Patient continues to deny any sustained depressive symptoms but reports that she does not feel well when she is having acute pain. Patient had previously presented to the emergency department for her last episode of care with back pain and now presenting with acute abdominal pain with self-inflicted scratches and lacerations in the context of acute pain. Patient states that she only has problems when she is experiencing pain and denies any interval depressive symptoms or mood symptoms when her pain is controlled. Patient states, as she previously has during interviews over the last couple of days, that she has no desire to end her life but feels frustrated about her lack of pain control and lack of ability to pursue outpatient care. As previously outlined in psychiatric consultations and progress notes, patient has longstanding history of chronic, passive suicidal ideation and remote history of self harming behavior in the context of frustration since adolescence. PFSH NPU PFSH: Medical History Acute kidney injury FIONA (acute kidney injury) Back pain CKD (chronic kidney disease) stage 2, GFR 60-89 ml/min baseline Cr is around 1.0 Coronary artery disease hx of stenting Diabetes mellitus type 1 diagnosed age 15, history of peripheral neuropathy, gastroparesis and nephropathy Diabetic foot ulcer s/p surgical intervention and eventual amputation Diabetic gastroparesis Diabetic ophthalmopathy DKA (diabetic ketoacidoses) Foot osteomyelitis, right Gastroparesis Hyperlipidemia Hypertension 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 Nausea & vomiting Non-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 PTSD (post-traumatic stress disorder) Suicidal ideation Toe infection Surgical History Below-knee amputation of left lower extremity H/O esophagogastroduodenoscopy (12/31/20) Bile reflux gastritis, grade B esophagitis H/O exploratory laparotomy x 3 History of amputation of right forefoot Hx of cholecystectomy Previous section x 3 S/P coronary artery stent placement x 1 S/P percutaneous endoscopic gastrostomy (PEG) tube placement Family History Unknown Diabetes extensive, type II Other CHF (congestive heart failure) Social History Smoking and tobacco status: former smoker Quit status (tobacco): has quit using tobacco Former quit date comment: 15 yrs ago Alcohol intake: former Former alcohol use details: 15 yrs ago Household members: spouse Marital status: Sexually active: Yes (1, ) Other Psychiatric History: Other Psychiatric History: Please refer to discharge summary dated 01/21/2021 as well as multiple recent psychiatry progress notes during her last admission less than 24 hours ago. Mental Status Exam MSE Comments: Lying in bed curled up in position, grimacing in pain, poor eye contact Psychomotor activity is decreased, no agitation I am in pain, current affect, not labile Alert, oriented to person, place, time, situation Memory and concentration appear to be fair to intact based on interview Thought process, linear but brief secondary to pain, no flight of ideas, no looseness of associations Thought content, no stated delusions, no hallucinations, does not appear to be attending to any internal stimuli, no suicidal or homicidal ideation Insight and judgment appear to be fair to intact Vitals/I&O/Wt Last Vital Signs Temp 98.2 F 01/21/21 10:45 Pulse 84 01/21/21 11:55 Resp 22 H 01/21/21 11:55 BP 148/73 01/21/21 11:55 Pulse Ox 97 01/21/21 11:55 Weight last 48 hrs Weight 81.647 kg A&P Assessment and plan (1) Intractable pain: Status: Acute (2) Depression: Status: Acute Qualifiers: Depression Type: unspecified Qualified Code(s): F32.9 - Major depressive disorder, single episode, unspecified (3) Self-harming behavior: Status: Acute Additional A&P Information 40-year-old female with chronic pain, history of noncompliance, poorly controlled type 1 diabetes with amputations, multiple acute and chronic medical stressors and financial stressors presenting to the emergency department less than 24 hours after discharge for acute abdominal pain with self harming behavior in the context of uncontrolled pain. Patient self harming behavior and suicidal ideation continue to be exclusively contingent on pain control. She continues to deny any depressive symptoms or suicidal ideation during interval periods without pain continues to deny any medication side effects on her current regimen of citalopram 20 mg and duloxetine 30 mg twice daily as well as augmentation with buspirone 15 mg twice daily. Low to moderate risk of harm to self given no current suicidal ideation although patient's risk may be elevated if she continues to perceive her pain as being uncontrolled leading to unexpected, impulsive behavior. Risk mitigation includes outpatient pain management given that her behaviors and intermittent suicidal ideation are exclusively tied to her complaint of uncontrolled pain as well as current medication management with psychiatric medication to target any mood or depressive symptoms and outpatient counseling/therapy to target patient's ability to deal with chronic pain and ongoing life/medical stressors. Patient was able to communicate her understanding and also agrees with plan that she needs consistent outpatient pain management in addition to counseling targeting her ability to cope with chronic pain in order to further mitigate her risk of harm to self. RECOMMEND outpatient pain management. RECOMMEND outpatient psychotropic medication management and therapy targeting development of adaptive coping strategies related to ongoing life and medical stressors. Inpatient psychiatric hospitalization is not indicated per above given no psychiatric indication to mitigate risk given that patient routinely cites her uncontrolled pain as a reason for feeling suicidal. Involuntary Hold Information 96 Hour Hold: 96 Hour Involuntary Admission: No Attestations NPU Medical Necessity Statement*: Defer to primary team for pain control Psychiatric hospitalization is not indicated at this time given that her behaviors are exclusively tied to lack of pain control and is currently on 2 antidepressants and augmenting medication with no foreseeable psychotropic medication changes altering these behaviors with ongoing acute pain. 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 Code Acute Boxing Instructor for Kim Mitchell Diagnoses Intractable pain R52 Depression F32.9 Depression Type: unspecified Self-harming behavior
--- NOTE | 2021-01-21 14:25 | ECG_ITS ---
[facility] Test Date: 2021-01-21 Pat Name: Cherrie Solomon Department: Room: Gender: Female [employer] System Admin: : 1980 Requested By: Karan Gracia Order Number: [id number] Reading MD: MESFIN HERMOSILLO Measurements Intervals [place] Rate: 91 P: 31 OR: 139 QRS: -18 QRSD: 97 T: 93 QT: 363 QTc: 448 Interpretive Statements SINUS RHYTHM NONSPECIFIC T-WAVE ABNORMALITY Compared to ECG 01/21/2021 11:50:18 T-wave abnormality now present Supraventricular rhythm no longer present ST (T wave) deviation no longer present Early repolarization no longer present Electronically Signed On 01-21-2021 20:23:06 CDT by MESFIN HERMOSILLO [email or web address]
[2021-01-21 15:17] LABS: Troponin 5 2HR 57.06 ng/L (0-10)
[2021-01-21 15:23] LABS: Troponin 5 2HR Delta -6.94 ABS# (0-10)
--- NOTE | 2021-01-25 13:46 | DCPLANNER ---
telephonic case manager had message to speak with patient about pain management, help with meds and home health. Patient does now have medicaid with a spend down. telephonic case manager tried to call patient and was unable to reach patient or leave a voicemail. telephonic case manager also called patients , unable to speak with him at this time, and unable to leave a voicemail.
== END 2021-01-21 15:30 | disposition left against medical advice (07) ==
LOC: ER 12:01
PROVIDERS: Emergency Provider Family Medicine
DX: R10.9 Unspecified abdominal pain (principal); Z79.4 Long term (current) use of insulin; Z89.512 Acquired absence of left leg below knee; Z89.421 Acquired absence of other right toe(s); E10.43 Type 1 diabetes mellitus with diabetic autonomic (poly)neuropathy; K31.84 Gastroparesis; H54.7 Unspecified visual loss; N28.9 Disorder of kidney and ureter, unspecified; E10.22 Type 1 diabetes mellitus with diabetic chronic kidney disease; N18.2 Chronic kidney disease, stage 2 (mild); I10 Essential (primary) hypertension; E78.5 Hyperlipidemia, unspecified; Z87.891 Personal history of nicotine dependence
CPT/HCPCS: 36415; 70450; 71045; 72125; 74177; 80053; 80306; 80307; 81001; 83690; 84484; 85025; 87086; 93005; 96361; 96372; 96374; 99284; J1630; J2405; J7030; Q9967

== ENCOUNTER → 2021-01-31 17:22 | Outpatient (BNVA) | payer MEDICAID, SELFPAY | PROVIDERS: PCP Urology; Visit Provider Family Medicine | DX: I10 Essential (primary) hypertension (principal); F32.9 Major depressive disorder, single episode, unspecified; F41.9 Anxiety disorder, unspecified; T87.89 Other complications of amputation stump; M79.605 Pain in left leg; G89.4 Chronic pain syndrome; K29.70 Gastritis, unspecified, without bleeding; K20.90 Esophagitis, unspecified without bleeding; K29.00 Acute gastritis without bleeding; K31.84 Gastroparesis; E10.65 Type 1 diabetes mellitus with hyperglycemia; J44.9 Chronic obstructive pulmonary disease, unspecified; T14.91XA Suicide attempt, initial encounter; E10.42 Type 1 diabetes mellitus with diabetic polyneuropathy; Z87.898 Personal history of other specified conditions; N18.2 Chronic kidney disease, stage 2 (mild); I25.10 Atherosclerotic heart disease of native coronary artery without angina pectoris; M86.671 Other chronic osteomyelitis, right ankle and foot; R33.8 Other retention of urine | CPT/HCPCS: 80053; 80061; 83036; 85025 ==

== ENCOUNTER 2021-02-13 22:05 | Emergency (ER) | payer MEDICAID, SELFPAY ==
[2021-02-13 22:12] VITALS: BP 195/106; PULSE 127; RESP 20; TEMP 36.6; O2SAT 99; BMI 26.6
--- NOTE | 2021-02-14 00:20 | W.ED.FEMALGU ---
HPI - Female Genitourinary General: Chief complaint: Urogenital-Female Stated complaint: ABD/BACK PAIN Time Seen by Provider: 02/14/21 00:07 Source: patient and EMS Mode of arrival: EMS Limitations: no limitations History of Present Illness: HPI Narrative: 40-year-old female history of chronic alcoholism and chronic abdominal pain states she is having left flank pain that is severe over the last 2 days. States it feels like her typical pain from her gastroparesis. She has been drinking today as well. She is screaming and yelling in the room try to get her to calm down. She states that her pain is severe and rates it a 10 out of 10. Denies any fever. She has had vomiting. Associated symptoms: Reports nausea; Deny headache(s) Date of Last Menstrual Period: 12/17/20 Review of Systems Const: Denies: fever(s), chills, body aches or change in appetite Eyes: Denies: blurry vision or eye discomfort ENMT: Denies: throat pain or dental pain Card: Denies: chest pain Resp: Denies: dyspnea GI: Reports: nausea : Reports: flank pain Musc: Denies: neck pain or back pain Skin/Breast: Denies: rash Neuro: Denies: headache(s) Psych: Denies: depression Keith/Lymph: Denies: easy bruising All/Imm: Denies: urticaria PFSH ED PFSH: Medical History (Updated 02/14/21 @ 03:28 by Donavon Delaney MD) Back pain CKD (chronic kidney disease) stage 2, GFR 60-89 ml/min baseline Cr is around 1.0 Coronary artery disease hx of stenting Diabetes mellitus type 1 diagnosed age 15, history of peripheral neuropathy, gastroparesis and nephropathy Diabetic foot ulcer s/p surgical intervention and eventual amputation Diabetic gastroparesis Diabetic ophthalmopathy Foot osteomyelitis, right Gastroparesis Hyperlipidemia Hypertension 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 Nausea & vomiting Non-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 PTSD (post-traumatic stress disorder) Suicidal ideation Toe infection Surgical History Below-knee amputation of left lower extremity H/O esophagogastroduodenoscopy (12/31/20) Bile reflux gastritis, grade B esophagitis H/O exploratory laparotomy x 3 History of amputation of right forefoot Hx of cholecystectomy Previous section x 3 S/P coronary artery stent placement x 1 S/P percutaneous endoscopic gastrostomy (PEG) tube placement Family History Unknown Diabetes extensive, type II Other CHF (congestive heart failure) Social History (Updated 01/31/21 @ 10:16 by Annkia Escalante CMA) Smoking and tobacco status: former smoker Quit status (tobacco): has quit using tobacco Former quit date comment: 15 yrs ago Alcohol intake: former Former alcohol use details: 15 yrs ago Household members: spouse Marital status: Sexually active: Yes (1, ) Female Reproductive History: Date of last menstrual period: 12/17/20 Physical Exam Const: COMMON NORMALS: no acute distress and patient oriented x3 GENERAL APPEARANCE: disheveled HENMT: COMMON NORMALS: normocephalic and atraumatic HEAD & SCALP: normocephalic and atraumatic Eye: COMMON NORMALS: Equal, round and reactive pupils present and EOMs intact bilaterally PUPIL: Yes Equal, round and reactive pupils present Neck/C-Spine: COMMON NORMALS: full ROM and supple Chest: COMMONS NORMALS: normal inspection of the chest and normal palpation of entire chest wall Resp: COMMON NORMALS: normal respiratory effort, No retractions, No use of accessory muscles and clear to auscultation bilaterally AUSCULTATION: clear to auscultation bilaterally Cardio: COMMON NORMALS: regular rhythm and No murmurs present (Cardio) RATE: tachycardic RHYTHM: regular rhythm GI: COMMON NORMALS: Normal to inspection, nondistended, normoactive bowel sounds present, Soft to palpation, non-tender and no masses PALPATION: Yes Soft to palpation Extremity: COMMON NORMALS: normal to inspection and full ROM Neuro: COMMON NORMALS: patient oriented x3, moves all extremities and no focal motor deficits Psych: COMMON NORMALS: mental status grossly normal, Normal thought process present and cooperative THOUGHT PROCESS: Normal thought process present Skin: COMMON NORMALS: no rashes or lesions noted and no wounds GENERAL SKIN EXAM: no rashes or lesions noted Course Vital Signs: Vital signs: Vital Signs Temperature 97.8 F 02/13/21 22:12 Pulse Rate 112 H 02/14/21 03:39 Respiratory Rate 16 02/14/21 03:39 Blood Pressure 154/82 02/14/21 03:39 Pulse Oximetry 100 02/14/21 03:39 MDM - Female MDM Narrative: Medical decision making narrative: Patient presents here with abdominal pain chronic in nature. CT scan here shows no acute findings. She feels improved and has had no vomiting here. She is stable for discharge is to follow-up with PCP and return if worsening. She understands agrees to plan. Lab Data: Labs: Lab Results 02/14/21 02/14/21 Range/Units 00:33 00:33 WBC 15.5 H (4.0-10.0) 10^3/ uL RBC 4.06 L (4.1-5.3) 10^6/u L Hgb 11.5 (11.5-15.3) g/dL Hct 35.3 L (37.0-47.0) % MCV 86.9 (81-99) fL MCH 28.3 (28.0-34.0) pg MCHC 32.6 (30.0-36.0) g/dL RDW 14.7 (12.1-15.1) % Plt Count 517 H (130-400) 10^3/c mm MPV 8.8 (7.4-10.4) fL Neut % (Auto) 92.3 % Lymph % (Auto) 4.1 % Real % (Auto) 2.8 % Eos % (Auto) 0.0 % Baso % (Auto) 0.3 % Neut # (Auto) 14.25 H (1.8-7.7) 10^3/u L Lymph # (Auto) 0.6 L (0.8-4.8) 10^3/u L Real # (Auto) 0.4 (0.2-0.9) 10^3/u L Eos # (Auto) 0.0 (0.0-0.8) 10^3/u L Baso # (Auto) 0.1 (0.0-0.1) 10^3/u L Nucleated RBC % (a uto) 0 % Nucleated RBCs # 0.0 /100WBC Sodium 139 (136-145) mmol/L Potassium 4.0 (3.5-5.1) mmol/L Chloride 100 (98-107) mmol/L Carbon Dioxide 17 L (22-29) mmol/L Anion Gap 26.0 H (5-19) BUN 21 H (6-20) mg/dL Creatinine 1.9 H (0.5-0.9) mg/dL GFR Calculation 29.0 L (90-130) mL/min Glucose 430 H (65-115) mg/dL Calculated Osmolal ity 309 H (285-295) mOsm/k g Calcium 9.8 (8.5-10.5) mg/dL Total Bilirubin 0.5 (0.15-1.2) mg/dL AST 22 (0-32) U/L ALT 18 (0-33) U/L Alkaline Phosphata se 147 H (35-105) IU/L Total Protein 7.8 (6.6-8.7) g/dL Albumin 4.1 (3.5-5.2) g/dL Globulin 3.7 (1.3-4.6) g/dL Lipase 27 (13-60) U/L Ethyl Alcohol < 10 (0-10) mg/dL Imaging Data: CT Abd/Pel: Attestation: I personally reviewed and interpreted this imaging study as follows: Radiologist's impression: [address] [address] [address] Scan Report Signed Patient: Cherrie Solomon Unit #: [id number] : 1980 Age/Sex: 40 / F ADM Date: 02/13/21 Loc: ER Room/Bed: Attending Dr: Ordering Provider/Ordering MD: Donavon Delaney MD Date of Service: 02/14/21 Procedure(s): CT abdomen pelvis w con* [id number] Accession Number(s): [id number] Report Number: [id number] PROCEDURE INFORMATION: Exam: CT Abdomen And Pelvis With Contrast Exam date and time: 02/14/2021 1:11 AM Age: 40 years old Clinical indication: Abdominal pain; Prior surgery; Surgery date: 6+ months; Surgery type: Heart stent; Additional info: Abd pain TECHNIQUE: Imaging protocol: Computed tomography of the abdomen and pelvis with contrast. Radiation optimization: All CT scans at this facility use at least one of these dose optimization techniques: automated exposure control; mA and/or kV adjustment per patient size (includes targeted exams where dose is matched to clinical indication); or iterative reconstruction. Contrast material: OMNI 300; Contrast volume: 95 ml; Contrast route: INTRAVENOUS (IV); COMPARISON: 1. CT abdomen pelvis w con* [id number] 01/21/2021 12:[address] abdomen pelvis w con* [id number] 01/08/2021 11:50 PM RADIATION DOSE METRICS: Total DLP (mGy-cm): 1932.71 FINDINGS: Lungs: The lung bases are clear. No effusion Liver: There is focal fatty infiltration along the falciform ligament. Gallbladder and bile ducts: There has been a cholecystectomy. Pancreas: Normal. No ductal dilation. Spleen: Normal. No splenomegaly. Adrenal glands: Normal. No mass. Kidneys and ureters: Normal. No hydronephrosis. Stomach and bowel: Unremarkable. No obstruction. No mucosal thickening. Appendix: No evidence of appendicitis. Intraperitoneal space: Unremarkable. No free air. No significant fluid collection. Vasculature: Unremarkable. No abdominal aortic aneurysm. Lymph nodes: Unremarkable. No enlarged lymph nodes. Urinary bladder: Unremarkable as visualized. Reproductive: Unremarkable as visualized. Bones/joints: Unremarkable. No acute fracture. Soft tissues: Unremarkable. CT/CT abdomen pelvis w con* [id number] IMPRESSION: No cause for acute pain is identified. Radiation Dose CTDIVOL = (mGy): DLP = 1932.71 (mGy-cm) Dictated By: Charles Kirkland Signed By: Charles Kirkland Signed Date/Time: 02/14/21324 DD/ 2 Discharge Plan Discharge Patient Disposition: Home Clinical Impression: Abdominal pain Qualifiers: Abdominal location: generalized Qualified Code(s): R10.84 - Generalized abdominal pain Condition: Stable Prescriptions: No Action amlodipine 10 mg tablet 10 mg PO DAILY 30 Days Qty: 30 RF: 0 carvedilol 12.5 mg tablet 12.5 mg PO BID 30 Days Qty: 60 RF: 0 duloxetine 30 mg capsule,delayed release(DR/EC) 30 mg PO BID 30 Days Qty: 60 RF: 0 gabapentin 300 mg capsule 300 mg PO Q8H Qty: 90 RF: 0 meloxicam 15 mg tablet 15 mg PO DAILY 30 Days Qty: 30 RF: 0 pantoprazole 40 mg tablet,delayed release (DR/EC) 40 mg PO BID Qty: 60 RF: 0 promethazine 25 mg tablet 25 mg PO Q6H PRN (Reason: Nausea) Qty: 30 RF: 0 propranolol 20 mg tablet 20 mg PO TID 30 Days Qty: 90 RF: 0 Lantus Solostar U-100 Insulin 100 unit/mL (3 mL) insulin pen 5 unit SUBCUT BEDTIME RF: 0 insulin lispro 100 unit/mL Insulin Pen See Rx Instructions .ROUTE .COMPLEX RF: 0 doxycycline monohydrate 100 mg Tablet 100 mg PO 0900,2099 28 Days Qty: 56 RF: 0 cefdinir 300 mg Capsule 300 mg PO 0900,2100 28 Days Qty: 56 RF: 0 Discharge Orders: Discharge ED (Routine); Ordered 02/14/21 Ordered By: Donavon Delaney Referrals: Fredis Mercer MD [Primary Care Provider] - Discharge Diet: Advance as tolerated Discharge Activity: Resume usual activity Patient Instructions: Abdominal Pain (ED) 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 Code ED 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
[2021-02-14] MEDS: sodium chloride 0.9% 1,000 ML 999 ML IV ×2 (00:34→01:47)
[2021-02-14] MEDS: HYDROmorphone 1 mg/mL INJ 1 mL 0.5 MG IVP (00:35)
[2021-02-14] MEDS: metoclopramide 5 mg/mL SDV 2 mL 10 MG IVP (00:35)
[2021-02-14] MEDS: diphenhydrAMINE 50 mg/mL SDV 1mL IVP (00:35)
[2021-02-14] MEDS: LORazepam 2 mg/mL INJ 1 mL 1 MG IVP (00:41)
[2021-02-14 00:59] LABS: Basophils # 0.1 10^3/uL (0.0-0.1); Basophils % 0.3 %; Hematocrit 35.3 % (37.0-47.0); Hemoglobin 11.5 g/dL (11.5-15.3); Lymphocytes # 0.6 10^3/uL (0.8-4.8); Lymphocytes % 4.1 %; Mean Corpuscular HGB Conc 32.6 g/dL (30.0-36.0); Mean Corpuscular Hemoglobin 28.3 pg (28.0-34.0); Mean Corpuscular Volume 86.9 fL (81-99); Mean Platelet Volume 8.8 fL (7.4-10.4); Monocytes # 0.4 10^3/uL (0.2-0.9); Monocytes % 2.8 %; Neutrophils # 14.25 10^3/uL (1.8-7.7); Neutrophils % 92.3 %; Nucleated Red Blood Cells % 0 %; Platelet Count 517 10^3/cmm (130-400); Red Blood Count 4.06 10^6/uL (4.1-5.3); Red Cell Distribution Width 14.7 % (12.1-15.1); White Blood Count 15.5 10^3/uL (4.0-10.0)
[2021-02-14 01:05] LABS: Alanine Aminotransferase 18 U/L (0-33); Albumin Level 4.1 g/dL (3.5-5.2); Alkaline Phosphatase 147 IU/L (35-105); Aspartate Amino Transferase 22 U/L (0-32); Blood Urea Nitrogen 21 mg/dL (6-20); Calcium 9.8 mg/dL (8.5-10.5); Carbon Dioxide 17 mmol/L (22-29); Chloride 100 mmol/L (98-107); Globulin 3.7 g/dL (1.3-4.6); Glucose 430 mg/dL (65-115); Lipase 27 U/L (13-60); Osmolality Calculated 309 mOsm/kg (285-295); Sodium 139 mmol/L (136-145); Total Bilirubin 0.5 mg/dL (0.15-1.2); Total Protein 7.8 g/dL (6.6-8.7)
[2021-02-14 01:09] LABS: Alcohol Level < 10 mg/dL (0-10)
--- NOTE | 2021-02-14 01:11 | CTR_ITS ---
PROCEDURE INFORMATION: Exam: CT Abdomen And Pelvis With Contrast Exam date and time: 02/14/2021 1:11 AM Age: 40 years old Clinical indication: Abdominal pain; Prior surgery; Surgery date: 6+ months; Surgery type: Heart stent; Additional info: Abd pain TECHNIQUE: Imaging protocol: Computed tomography of the abdomen and pelvis with contrast. Radiation optimization: All CT scans at this facility use at least one of these dose optimization techniques: automated exposure control; mA and/or kV adjustment per patient size (includes targeted exams where dose is matched to clinical indication); or iterative reconstruction. Contrast material: OMNI 300; Contrast volume: 95 ml; Contrast route: INTRAVENOUS (IV); COMPARISON: 1. CT abdomen pelvis w con* [id number] 01/21/2021 12:[address] abdomen pelvis w con* [id number] 01/08/2021 11:50 PM RADIATION DOSE METRICS: Total DLP (mGy-cm): 1932.71 FINDINGS: Lungs: The lung bases are clear. No effusion Liver: There is focal fatty infiltration along the falciform ligament. Gallbladder and bile ducts: There has been a cholecystectomy. Pancreas: Normal. No ductal dilation. Spleen: Normal. No splenomegaly. Adrenal glands: Normal. No mass. Kidneys and ureters: Normal. No hydronephrosis. Stomach and bowel: Unremarkable. No obstruction. No mucosal thickening. Appendix: No evidence of appendicitis. Intraperitoneal space: Unremarkable. No free air. No significant fluid collection. Vasculature: Unremarkable. No abdominal aortic aneurysm. Lymph nodes: Unremarkable. No enlarged lymph nodes. Urinary bladder: Unremarkable as visualized. Reproductive: Unremarkable as visualized. Bones/joints: Unremarkable. No acute fracture. Soft tissues: Unremarkable. CT/CT abdomen pelvis w con* [id number] IMPRESSION: No cause for acute pain is identified. Radiation Dose CTDIVOL = (mGy): DLP = 1932.71 (mGy-cm)
[2021-02-14] MEDS: iohexol 300 mg/mL 100 mL Btl IV (01:37)
[2021-02-14 02:04] VITALS: BP 194/95; PULSE 121; RESP 18; O2SAT 99
--- NOTE | 2021-02-14 02:05 | PC.NURSE ---
pt and bed cleaned and redressed
[2021-02-14 02:33] VITALS: BP 182/91; PULSE 112; RESP 17; O2SAT 100
[2021-02-14 03:39] VITALS: BP 154/82; PULSE 112; RESP 16; O2SAT 100
== END 2021-02-14 03:39 | disposition home or self-care (01) ==
PROVIDERS: Emergency Provider Emergency Medicine; PCP Urology
DX: R10.84 Generalized abdominal pain (principal); Z79.4 Long term (current) use of insulin; I12.9 Hypertensive chronic kidney disease with stage 1 through stage 4 chronic kidney disease, or unspecified chronic kidney disease; E10.22 Type 1 diabetes mellitus with diabetic chronic kidney disease; N18.2 Chronic kidney disease, stage 2 (mild); I25.10 Atherosclerotic heart disease of native coronary artery without angina pectoris; E78.5 Hyperlipidemia, unspecified; Z89.512 Acquired absence of left leg below knee; Z89.431 Acquired absence of right foot; Z87.891 Personal history of nicotine dependence
CPT/HCPCS: 74177; 80053; 80307; 83690; 85025; 96361; 96374; 96375; 99284; J1170; J1200; J2060; J2765; J7030; Q9967

== ENCOUNTER 2021-02-14 03:58 | Inpatient (IN) | payer MEDICAID, SELFPAY ==
[2021-02-14] VITALS (13 sets, daily range): BP systolic 110–209; BP diastolic 70–116; PULSE 86–141; RESP 14–20; TEMP 36.6–37.3; O2SAT 95–99; BMI 27.3
[2021-02-14] MEDS: LORazepam 2 mg/mL INJ 1 mL IM (04:45)
[2021-02-14] MEDS: haloperidol inj 5 mg/mL INJ 1 mL IM (04:45)
--- NOTE | 2021-02-14 04:55 | W.ED.GENADLT ---
Documented by User: Donavon Delaney MD 02/14/21 04:59 HPI - General Adult General: Chief complaint: General Medical Stated complaint: right flank pain Time Seen by Provider: 02/14/21 04:37 Source: patient Mode of arrival: ambulatory Limitations: no limitations History of Present Illness: HPI narrative: 40-year-old female has a history of chronic alcoholism and chronic abdominal pain was seen here earlier tonight for abdominal and flank pain. Patient with had a normal CT scan and was discharged. Patient was in the waiting room putting her finger down her throat and vomiting and checked back in complaining her pain is worsened. Patient is currently screaming and yelling and states her pain is a 10 out of 10 all over her abdomen. She has no fever. She is quite anxious and tachycardic. Associated symptoms: Reports vomiting; Deny chest pain, dyspnea, headache(s) or rash Review of Systems Const: Denies: fever(s), chills, body aches or change in appetite Eyes: Denies: blurry vision or eye discomfort ENMT: Denies: throat pain or dental pain Card: Denies: chest pain Resp: Denies: dyspnea GI: Reports: vomiting : Reports: flank pain Musc: Denies: neck pain or back pain Skin/Breast: Denies: rash Neuro: Denies: headache(s) Psych: Denies: depression Keith/Lymph: Denies: easy bruising All/Imm: Denies: urticaria PFSH ED PFSH: Medical History Back pain CKD (chronic kidney disease) stage 2, GFR 60-89 ml/min baseline Cr is around 1.0 Coronary artery disease hx of stenting Diabetes mellitus type 1 diagnosed age 15, history of peripheral neuropathy, gastroparesis and nephropathy Diabetic foot ulcer s/p surgical intervention and eventual amputation Diabetic gastroparesis Diabetic ophthalmopathy Foot osteomyelitis, right Gastroparesis Hyperlipidemia Hypertension 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 Nausea & vomiting Non-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 PTSD (post-traumatic stress disorder) Suicidal ideation Toe infection Surgical History Below-knee amputation of left lower extremity H/O esophagogastroduodenoscopy (12/31/20) Bile reflux gastritis, grade B esophagitis H/O exploratory laparotomy x 3 History of amputation of right forefoot Hx of cholecystectomy Previous section x 3 S/P coronary artery stent placement x 1 S/P percutaneous endoscopic gastrostomy (PEG) tube placement Family History Unknown Diabetes extensive, type II Other CHF (congestive heart failure) Social History Smoking and tobacco status: former smoker Quit status (tobacco): has quit using tobacco Former quit date comment: 15 yrs ago Alcohol intake: former Former alcohol use details: 15 yrs ago Household members: spouse Marital status: Sexually active: Yes (1, ) Female Reproductive History: Date of last menstrual period: 12/17/20 Physical Exam Const: COMMON NORMALS: no acute distress and patient oriented x3 GENERAL APPEARANCE: disheveled HENMT: COMMON NORMALS: normocephalic and atraumatic HEAD & SCALP: normocephalic and atraumatic Eye: COMMON NORMALS: Equal, round and reactive pupils present and EOMs intact bilaterally PUPIL: Yes Equal, round and reactive pupils present Neck/C-Spine: COMMON NORMALS: full ROM and supple Chest: COMMONS NORMALS: normal inspection of the chest and normal palpation of entire chest wall Resp: COMMON NORMALS: normal respiratory effort, No retractions, No use of accessory muscles and clear to auscultation bilaterally AUSCULTATION: clear to auscultation bilaterally Cardio: COMMON NORMALS: regular rhythm and No murmurs present (Cardio) RATE: tachycardic RHYTHM: regular rhythm GI: COMMON NORMALS: Normal to inspection, nondistended, normoactive bowel sounds present, Soft to palpation, non-tender and no masses PALPATION: Yes Soft to palpation Extremity: COMMON NORMALS: normal to inspection and full ROM Neuro: COMMON NORMALS: patient oriented x3, moves all extremities and no focal motor deficits Psych: COMMON NORMALS: mental status grossly normal, Normal thought process present and cooperative THOUGHT PROCESS: Normal thought process present Skin: COMMON NORMALS: no rashes or lesions noted and no wounds GENERAL SKIN EXAM: no rashes or lesions noted Course Vital Signs: Vital signs: Vital Signs Temperature 97.8 F 02/16/21 13:05 Pulse Rate 99 07/01/21 13:05 Respiratory Rate 18 02/16/21 13:05 Blood Pressure 165/94 02/16/21 13:05 Pulse Oximetry 97 02/16/21 13:05 [facility] - General Adult Lab Data: Labs: Lab Results 02/14/21 02/14/21 02/14/21 Range/Units 04:59 05:48 05:55 WBC Cancelled Corrected WBC Cancelled RBC Cancelled Hgb Cancelled Hct Cancelled MCV Cancelled MCH Cancelled MCHC Cancelled RDW Cancelled Plt Count Cancelled MPV Cancelled Gran % Cancelled Neut % (Auto) Cancelled Lymph % (Auto) Cancelled Charlton % (Auto) Cancelled Eos % (Auto) Cancelled Baso % (Auto) Cancelled Neut # (Auto) Cancelled Lymph # (Auto) Cancelled Charlton # (Auto) Cancelled Eos # (Auto) Cancelled Baso # (Auto) Cancelled Absolute Gran (aut o) Cancelled Nucleated RBC % (a uto) Cancelled Total Counted (0-100) Atypical Lymphs % (0-5) % Absolute Neutrophi ls (1.4-6.5) 10^3/c mm Segmented Neutroph ils % Abs Segm Neuts (Ma n) (1.6-7.1) 10/cmm Band Neutrophils % Abs Band Neuts (Ma n) (0.0-1.2) 10^3/c mm Absolute Lymphocyt es (1.2-3.4) 10^3/c mm Lymphocytes (Manua l) % Monocytes (Manual) % Absolute Monocytes (0.1-0.6) 10^3/c mm Eosinophils (Manua l) % Absolute Eosinophi ls (0.0-0.7) 10^3/c mm Basophils (Manual) % Absolute Basophils (0.0-0.2) 10^3/c mm Nucleated RBCs # Cancelled Platelet Estimate (Normal) Sodium (136-145) mmol/L Potassium (3.5-5.1) mmol/L Chloride (98-107) mmol/L Carbon Dioxide (22-29) mmol/L Anion Gap (5-19) BUN (6-20) mg/dL Creatinine (0.5-0.9) mg/dL GFR Calculation (90-130) mL/min Glucose (65-115) mg/dL POC Glucose (70-110) mg/dL Calculated Osmolal ity (285-295) mOsm/k g Lactic Acid (0.5-2.2) mmol/L Lactate 3.7 H (0.5-2.2) mmol/L Calcium (8.5-10.5) mg/dL Magnesium (1.7-2.3) mg/dL Total Bilirubin (0.15-1.2) mg/dL AST (0-32) U/L ALT (0-33) U/L Alkaline Phosphata se (35-105) IU/L Total Protein (6.6-8.7) g/dL Albumin (3.5-5.2) g/dL Globulin (1.3-4.6) g/dL Urine Color Yellow (Yellow) Urine Appearance Hazy A (CLEAR) Urine pH 5 (5-7) Ur Specific Gravit y 1.005 (1.005-1.030) Urine Protein 3+ H (Negative) Urine Glucose (UA) 4+ H (Normal) Urine Ketones Negative (Negative) Urine Blood 3+ H (Negative) Urine Nitrate Negative (Negative) Urine Bilirubin Neg (Negative) Urine Urobilinogen Norm (Negative) mg/dL Ur Leukocyte Estephania ase 1+ H (Negative) Urine RBC 0-4 H (0-2) /hpf Urine WBC Too numerous to c nt H (0-5) /hpf Ur Squamous Epith Cells 0-4 H (0-5) /hpf Amorphous Sediment Not Reportable Urine Bacteria 2+ H (NONE) /hpf Urine Mucus Trace /hpf Urine Opiates Scre en (Negative) ng/mL Ur Barbiturates Sc reen (Negative) ng/mL Ur Phencyclidine S crn (Negative) ng/mL Ur Amphetamines Sc reen (Negative) ng/mL U Benzodiazepines Scrn (Negative) ng/mL Urine Cocaine Scre en (Negative) ng/mL U Marijuana (THC) Screen (Negative) ng/mL Serum Ketones (Negative) 02/14/21 02/14/21 02/14/21 Range/Units 05:55 05:55 06:21 WBC 13.4 H Corrected WBC RBC 3.73 L Hgb 10.6 L Hct 33.1 L MCV 88.7 MCH 28.4 MCHC 32.0 RDW 14.9 Plt Count 419 H MPV 8.6 Gran % Neut % (Auto) Lymph % (Auto) Not Reportable Charlton % (Auto) Not Reportable Eos % (Auto) Baso % (Auto) 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) Not Reportable Charlton # (Auto) Not Reportable Eos # (Auto) Baso # (Auto) Absolute Gran (aut o) Nucleated RBC % (a uto) Total Counted 100 (0-100) Atypical Lymphs % 0.0 (0-5) % Absolute Neutrophi ls 11.1 H (1.4-6.5) 10^3/c mm Segmented Neutroph ils 83 % Abs Segm Neuts (Ma n) 11.1 H (1.6-7.1) 10/cmm Band Neutrophils 0.0 % Abs Band Neuts (Ma n) 0.0 (0.0-1.2) 10^3/c mm Absolute Lymphocyt es 1.1 L (1.2-3.4) 10^3/c mm Lymphocytes (Manua l) 8 % Monocytes (Manual) 9.0 % Absolute Monocytes 1.2 H (0.1-0.6) 10^3/c mm Eosinophils (Manua l) 0 % Absolute Eosinophi ls 0.0 (0.0-0.7) 10^3/c mm Basophils (Manual) 0.0 % Absolute Basophils 0.0 (0.0-0.2) 10^3/c mm Nucleated RBCs # Platelet Estimate Normal (Normal) Sodium 141 (136-145) mmol/L Potassium 3.8 (3.5-5.1) mmol/L Chloride 104 (98-107) mmol/L Carbon Dioxide 20 L (22-29) mmol/L Anion Gap 20.8 H (5-19) BUN 19 (6-20) mg/dL Creatinine 1.5 H (0.5-0.9) mg/dL GFR Calculation 38.1 L (90-130) mL/min Glucose 342 H (65-115) mg/dL POC Glucose (70-110) mg/dL Calculated Osmolal ity 308 H (285-295) mOsm/k g Lactic Acid (0.5-2.2) mmol/L Lactate (0.5-2.2) mmol/L Calcium 8.9 (8.5-10.5) mg/dL Magnesium (1.7-2.3) mg/dL Total Bilirubin 0.4 (0.15-1.2) mg/dL AST 20 (0-32) U/L ALT 15 (0-33) U/L Alkaline Phosphata se 134 H (35-105) IU/L Total Protein 7.0 (6.6-8.7) g/dL Albumin 3.7 (3.5-5.2) g/dL Globulin 3.3 (1.3-4.6) g/dL Urine Color (Yellow) Urine Appearance (CLEAR) Urine pH (5-7) Ur Specific Gravit y (1.005-1.030) Urine Protein (Negative) Urine Glucose (UA) (Normal) Urine Ketones (Negative) Urine Blood (Negative) Urine Nitrate (Negative) Urine Bilirubin (Negative) Urine Urobilinogen (Negative) mg/dL Ur Leukocyte Estephania ase (Negative) Urine RBC (0-2) /hpf Urine WBC (0-5) /hpf Ur Squamous Epith Cells (0-5) /hpf Amorphous Sediment Urine Bacteria (NONE) /hpf Urine Mucus /hpf Urine Opiates Scre en (Negative) ng/mL Ur Barbiturates Sc reen (Negative) ng/mL Ur Phencyclidine S crn (Negative) ng/mL Ur Amphetamines Sc reen (Negative) ng/mL U Benzodiazepines Scrn (Negative) ng/mL Urine Cocaine Scre en (Negative) ng/mL U Marijuana (THC) Screen (Negative) ng/mL Serum Ketones Negative (Negative) 02/14/21 02/14/21 02/14/21 Range/Units 10:47 17:15 17:55 WBC Corrected WBC RBC Hgb Hct MCV MCH MCHC RDW Plt Count MPV Gran % Neut % (Auto) Lymph % (Auto) Charlton % (Auto) Eos % (Auto) Baso % (Auto) Neut # (Auto) Lymph # (Auto) Charlton # (Auto) Eos # (Auto) Baso # (Auto) Absolute Gran (aut o) Nucleated RBC % (a uto) Total Counted (0-100) Atypical Lymphs % (0-5) % Absolute Neutrophi ls (1.4-6.5) 10^3/c mm Segmented Neutroph ils % Abs Segm Neuts (Ma n) (1.6-7.1) 10/cmm Band Neutrophils % Abs Band Neuts (Ma n) (0.0-1.2) 10^3/c mm Absolute Lymphocyt es (1.2-3.4) 10^3/c mm Lymphocytes (Manua l) % Monocytes (Manual) % Absolute Monocytes (0.1-0.6) 10^3/c mm Eosinophils (Manua l) % Absolute Eosinophi ls (0.0-0.7) 10^3/c mm Basophils (Manual) % Absolute Basophils (0.0-0.2) 10^3/c mm Nucleated RBCs # Platelet Estimate (Normal) Sodium (136-145) mmol/L Potassium (3.5-5.1) mmol/L Chloride (98-107) mmol/L Carbon Dioxide (22-29) mmol/L Anion Gap (5-19) BUN (6-20) mg/dL Creatinine (0.5-0.9) mg/dL GFR Calculation (90-130) mL/min Glucose (65-115) mg/dL POC Glucose 202 H (70-110) mg/dL Calculated Osmolal ity (285-295) mOsm/k g Lactic Acid 1.6 (0.5-2.2) mmol/L Lactate (0.5-2.2) mmol/L Calcium (8.5-10.5) mg/dL Magnesium (1.7-2.3) mg/dL Total Bilirubin (0.15-1.2) mg/dL AST (0-32) U/L ALT (0-33) U/L Alkaline Phosphata se (35-105) IU/L Total Protein (6.6-8.7) g/dL Albumin (3.5-5.2) g/dL Globulin (1.3-4.6) g/dL Urine Color (Yellow) Urine Appearance (CLEAR) Urine pH (5-7) Ur Specific Gravit y (1.005-1.030) Urine Protein (Negative) Urine Glucose (UA) (Normal) Urine Ketones (Negative) Urine Blood (Negative) Urine Nitrate (Negative) Urine Bilirubin (Negative) Urine Urobilinogen (Negative) mg/dL Ur Leukocyte Estephania ase (Negative) Urine RBC (0-2) /hpf Urine WBC (0-5) /hpf Ur Squamous Epith Cells (0-5) /hpf Amorphous Sediment Urine Bacteria (NONE) /hpf Urine Mucus /hpf Urine Opiates Scre en Positive H (Negative) ng/mL Ur Barbiturates Sc reen Negative (Negative) ng/mL Ur Phencyclidine S crn Negative (Negative) ng/mL Ur Amphetamines Sc reen Negative (Negative) ng/mL U Benzodiazepines Scrn Positive H (Negative) ng/mL Urine Cocaine Scre en Negative (Negative) ng/mL U Marijuana (THC) Screen Positive H (Negative) ng/mL Serum Ketones (Negative) 02/14/21 02/15/21 02/15/21 Range/Units 20:43 05:41 05:41 WBC 11.2 H Corrected WBC RBC 3.97 L Hgb 11.2 L Hct 34.9 L MCV 87.9 MCH 28.2 MCHC 32.1 RDW 15.0 Plt Count 360 MPV 9.3 Gran % Neut % (Auto) 83.1 Lymph % (Auto) 11.3 Charlton % (Auto) 4.7 Eos % (Auto) 0.1 Baso % (Auto) 0.4 Neut # (Auto) 9.27 H Lymph # (Auto) 1.3 Charlton # (Auto) 0.5 Eos # (Auto) 0.0 Baso # (Auto) 0.1 Absolute Gran (aut o) Nucleated RBC % (a uto) 0 Total Counted (0-100) Atypical Lymphs % (0-5) % Absolute Neutrophi ls (1.4-6.5) 10^3/c mm Segmented Neutroph ils % Abs Segm Neuts (Ma n) (1.6-7.1) 10/cmm Band Neutrophils % Abs Band Neuts (Ma n) (0.0-1.2) 10^3/c mm Absolute Lymphocyt es (1.2-3.4) 10^3/c mm Lymphocytes (Manua l) % Monocytes (Manual) % Absolute Monocytes (0.1-0.6) 10^3/c mm Eosinophils (Manua l) % Absolute Eosinophi ls (0.0-0.7) 10^3/c mm Basophils (Manual) % Absolute Basophils (0.0-0.2) 10^3/c mm Nucleated RBCs # 0.0 Platelet Estimate (Normal) Sodium 135 L (136-145) mmol/L Potassium 3.4 L (3.5-5.1) mmol/L Chloride 98 (98-107) mmol/L Carbon Dioxide 21 L (22-29) mmol/L Anion Gap 19.4 H (5-19) BUN 12 (6-20) mg/dL Creatinine 1.2 H (0.5-0.9) mg/dL GFR Calculation 49.3 L (90-130) mL/min Glucose 159 H (65-115) mg/dL POC Glucose 190 H (70-110) mg/dL Calculated Osmolal ity 283 L (285-295) mOsm/k g Lactic Acid (0.5-2.2) mmol/L Lactate (0.5-2.2) mmol/L Calcium 9.0 (8.5-10.5) mg/dL Magnesium 1.5 L (1.7-2.3) mg/dL Total Bilirubin 0.4 (0.15-1.2) mg/dL AST 31 (0-32) U/L ALT 18 (0-33) U/L Alkaline Phosphata se 142 H (35-105) IU/L Total Protein 7.4 (6.6-8.7) g/dL Albumin 3.7 (3.5-5.2) g/dL Globulin 3.7 (1.3-4.6) g/dL Urine Color (Yellow) Urine Appearance (CLEAR) Urine pH (5-7) Ur Specific Gravit y (1.005-1.030) Urine Protein (Negative) Urine Glucose (UA) (Normal) Urine Ketones (Negative) Urine Blood (Negative) Urine Nitrate (Negative) Urine Bilirubin (Negative) Urine Urobilinogen (Negative) mg/dL Ur Leukocyte Estephania ase (Negative) Urine RBC (0-2) /hpf Urine WBC (0-5) /hpf Ur Squamous Epith Cells (0-5) /hpf Amorphous Sediment Urine Bacteria (NONE) /hpf Urine Mucus /hpf Urine Opiates Scre en (Negative) ng/mL Ur Barbiturates Sc reen (Negative) ng/mL Ur Phencyclidine S crn (Negative) ng/mL Ur Amphetamines Sc reen (Negative) ng/mL U Benzodiazepines Scrn (Negative) ng/mL Urine Cocaine Scre en (Negative) ng/mL U Marijuana (THC) Screen (Negative) ng/mL Serum Ketones (Negative) 06/30/21 Range/Units 06:11 WBC Corrected WBC RBC Hgb Hct MCV MCH MCHC RDW Plt Count MPV Gran % Neut % (Auto) Lymph % (Auto) Charlton % (Auto) Eos % (Auto) Baso % (Auto) Neut # (Auto) Lymph # (Auto) Charlton # (Auto) Eos # (Auto) Baso # (Auto) Absolute Gran (aut o) Nucleated RBC % (a uto) Total Counted (0-100) Atypical Lymphs % (0-5) % Absolute Neutrophi ls (1.4-6.5) 10^3/c mm Segmented Neutroph ils % Abs Segm Neuts (Ma n) (1.6-7.1) 10/cmm Band Neutrophils % Abs Band Neuts (Ma n) (0.0-1.2) 10^3/c mm Absolute Lymphocyt es (1.2-3.4) 10^3/c mm Lymphocytes (Manua l) % Monocytes (Manual) % Absolute Monocytes (0.1-0.6) 10^3/c mm Eosinophils (Manua l) % Absolute Eosinophi ls (0.0-0.7) 10^3/c mm Basophils (Manual) % Absolute Basophils (0.0-0.2) 10^3/c mm Nucleated RBCs # Platelet Estimate (Normal) Sodium (136-145) mmol/L Potassium (3.5-5.1) mmol/L Chloride (98-107) mmol/L Carbon Dioxide (22-29) mmol/L Anion Gap (5-19) BUN (6-20) mg/dL Creatinine (0.5-0.9) mg/dL GFR Calculation (90-130) mL/min Glucose (65-115) mg/dL POC Glucose 167 H (70-110) mg/dL Calculated Osmolal ity (285-295) mOsm/k g Lactic Acid (0.5-2.2) mmol/L Lactate (0.5-2.2) mmol/L Calcium (8.5-10.5) mg/dL Magnesium (1.7-2.3) mg/dL Total Bilirubin (0.15-1.2) mg/dL AST (0-32) U/L ALT (0-33) U/L Alkaline Phosphata se (35-105) IU/L Total Protein (6.6-8.7) g/dL Albumin (3.5-5.2) g/dL Globulin (1.3-4.6) g/dL Urine Color (Yellow) Urine Appearance (CLEAR) Urine pH (5-7) Ur Specific Gravit y (1.005-1.030) Urine Protein (Negative) Urine Glucose (UA) (Normal) Urine Ketones (Negative) Urine Blood (Negative) Urine Nitrate (Negative) Urine Bilirubin (Negative) Urine Urobilinogen (Negative) mg/dL Ur Leukocyte Estephania ase (Negative) Urine RBC (0-2) /hpf Urine WBC (0-5) /hpf Ur Squamous Epith Cells (0-5) /hpf Amorphous Sediment Urine Bacteria (NONE) /hpf Urine Mucus /hpf Urine Opiates Scre en (Negative) ng/mL Ur Barbiturates Sc reen (Negative) ng/mL Ur Phencyclidine S crn (Negative) ng/mL Ur Amphetamines Sc reen (Negative) ng/mL U Benzodiazepines Scrn (Negative) ng/mL Urine Cocaine Scre en (Negative) ng/mL U Marijuana (THC) Screen (Negative) ng/mL Serum Ketones (Negative) Discharge Plan Discharge Patient Disposition: Admitted As Inpatient Admit Provider: Clyde Lopez Condition: Stable Discharge Diet: Diabetic Discharge Activity: Increase activity as tolerated 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 Code ED Exhibits Manager for Chg Fwd Exam Comprehensive Documented by User: Adama Ceballos DO 02/27/21 13:35 HPI - General Adult General: Chief complaint: General Medical Stated complaint: right flank pain Time Seen by Provider: 02/14/21 04:37 PFSH ED PFSH: Medical History Back pain CKD (chronic kidney disease) stage 2, GFR 60-89 ml/min baseline Cr is around 1.0 Coronary artery disease hx of stenting Diabetes mellitus type 1 diagnosed age 15, history of peripheral neuropathy, gastroparesis and nephropathy Diabetic foot ulcer s/p surgical intervention and eventual amputation Diabetic gastroparesis Diabetic ophthalmopathy Foot osteomyelitis, right Gastroparesis Hyperlipidemia Hypertension 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 Nausea & vomiting Non-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 PTSD (post-traumatic stress disorder) Suicidal ideation Toe infection Surgical History Below-knee amputation of left lower extremity H/O esophagogastroduodenoscopy (12/31/20) Bile reflux gastritis, grade B esophagitis H/O exploratory laparotomy x 3 History of amputation of right forefoot Hx of cholecystectomy Previous section x 3 S/P coronary artery stent placement x 1 S/P percutaneous endoscopic gastrostomy (PEG) tube placement Family History Unknown Diabetes extensive, type II Other CHF (congestive heart failure) Social History Smoking and tobacco status: former smoker Quit status (tobacco): has quit using tobacco Former quit date comment: 15 yrs ago Alcohol intake: former Former alcohol use details: 15 yrs ago Household members: spouse Marital status: Sexually active: Yes (1, ) Course Vital Signs: Vital signs: Vital Signs Temperature 97.8 F 02/16/21 13:05 Pulse Rate 99 02/16/21 13:05 Respiratory Rate 18 02/16/21 13:05 Blood Pressure 165/94 02/16/21 13:05 Pulse Oximetry 97 02/16/21 13:05 MDM - General Adult MDM Narrative: Medical decision making narrative: My name was inadvertently added to the patient's chart I did not see the patient Dr. Delaney seen the patient treated and disposition plan see his note. Lab Data: Labs: Lab Results 02/14/21 02/14/21 02/14/21 Range/Units 04:59 05:48 05:55 WBC Cancelled Corrected WBC Cancelled RBC Cancelled Hgb Cancelled Hct Cancelled MCV Cancelled MCH Cancelled MCHC Cancelled RDW Cancelled Plt Count Cancelled MPV Cancelled Gran % Cancelled Neut % (Auto) Cancelled Lymph % (Auto) Cancelled Charlton % (Auto) Cancelled Eos % (Auto) Cancelled Baso % (Auto) Cancelled Neut # (Auto) Cancelled Lymph # (Auto) Cancelled Charlton # (Auto) Cancelled Eos # (Auto) Cancelled Baso # (Auto) Cancelled Absolute Gran (aut o) Cancelled Nucleated RBC % (a uto) Cancelled Total Counted (0-100) Atypical Lymphs % (0-5) % Absolute Neutrophi ls (1.4-6.5) 10^3/c mm Segmented Neutroph ils % Abs Segm Neuts (Ma n) (1.6-7.1) 10/cmm Band Neutrophils % Abs Band Neuts (Ma n) (0.0-1.2) 10^3/c mm Absolute Lymphocyt es (1.2-3.4) 10^3/c mm Lymphocytes (Manua l) % Monocytes (Manual) % Absolute Monocytes (0.1-0.6) 10^3/c mm Eosinophils (Manua l) % Absolute Eosinophi ls (0.0-0.7) 10^3/c mm Basophils (Manual) % Absolute Basophils (0.0-0.2) 10^3/c mm Nucleated RBCs # Cancelled Platelet Estimate (Normal) Sodium (136-145) mmol/L Potassium (3.5-5.1) mmol/L Chloride (98-107) mmol/L Carbon Dioxide (22-29) mmol/L Anion Gap (5-19) BUN (6-20) mg/dL Creatinine (0.5-0.9) mg/dL GFR Calculation (90-130) mL/min Glucose (65-115) mg/dL POC Glucose (70-110) mg/dL Calculated Osmolal ity (285-295) mOsm/k g Lactic Acid (0.5-2.2) mmol/L Lactate 3.7 H (0.5-2.2) mmol/L Calcium (8.5-10.5) mg/dL Magnesium (1.7-2.3) mg/dL Total Bilirubin (0.15-1.2) mg/dL AST (0-32) U/L ALT (0-33) U/L Alkaline Phosphata se (35-105) IU/L Total Protein (6.6-8.7) g/dL Albumin (3.5-5.2) g/dL Globulin (1.3-4.6) g/dL Urine Color Yellow (Yellow) Urine Appearance Hazy A (CLEAR) Urine pH 5 (5-7) Ur Specific Gravit y 1.005 (1.005-1.030) Urine Protein 3+ H (Negative) Urine Glucose (UA) 4+ H (Normal) Urine Ketones Negative (Negative) Urine Blood 3+ H (Negative) Urine Nitrate Negative (Negative) Urine Bilirubin Neg (Negative) Urine Urobilinogen Norm (Negative) mg/dL Ur Leukocyte Estephania ase 1+ H (Negative) Urine RBC 0-4 H (0-2) /hpf Urine WBC Too numerous to c nt H (0-5) /hpf Ur Squamous Epith Cells 0-4 H (0-5) /hpf Amorphous Sediment Not Reportable Urine Bacteria 2+ H (NONE) /hpf Urine Mucus Trace /hpf Urine Opiates Scre en (Negative) ng/mL Ur Barbiturates Sc reen (Negative) ng/mL Ur Phencyclidine S crn (Negative) ng/mL Ur Amphetamines Sc reen (Negative) ng/mL U Benzodiazepines Scrn (Negative) ng/mL Urine Cocaine Scre en (Negative) ng/mL U Marijuana (THC) Screen (Negative) ng/mL Serum Ketones (Negative) 02/14/21 02/14/21 02/14/21 Range/Units 05:55 05:55 06:21 WBC 13.4 H Corrected WBC RBC 3.73 L Hgb 10.6 L Hct 33.1 L MCV 88.7 MCH 28.4 MCHC 32.0 RDW 14.9 Plt Count 419 H MPV 8.6 Gran % Neut % (Auto) Lymph % (Auto) Not Reportable Charlton % (Auto) Not Reportable Eos % (Auto) Baso % (Auto) 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) Not Reportable Charlton # (Auto) Not Reportable Eos # (Auto) Baso # (Auto) Absolute Gran (aut o) Nucleated RBC % (a uto) Total Counted 100 (0-100) Atypical Lymphs % 0.0 (0-5) % Absolute Neutrophi ls 11.1 H (1.4-6.5) 10^3/c mm Segmented Neutroph ils 83 % Abs Segm Neuts (Ma n) 11.1 H (1.6-7.1) 10/cmm Band Neutrophils 0.0 % Abs Band Neuts (Ma n) 0.0 (0.0-1.2) 10^3/c mm Absolute Lymphocyt es 1.1 L (1.2-3.4) 10^3/c mm Lymphocytes (Manua l) 8 % Monocytes (Manual) 9.0 % Absolute Monocytes 1.2 H (0.1-0.6) 10^3/c mm Eosinophils (Manua l) 0 % Absolute Eosinophi ls 0.0 (0.0-0.7) 10^3/c mm Basophils (Manual) 0.0 % Absolute Basophils 0.0 (0.0-0.2) 10^3/c mm Nucleated RBCs # Platelet Estimate Normal (Normal) Sodium 141 (136-145) mmol/L Potassium 3.8 (3.5-5.1) mmol/L Chloride 104 (98-107) mmol/L Carbon Dioxide 20 L (22-29) mmol/L Anion Gap 20.8 H (5-19) BUN 19 (6-20) mg/dL Creatinine 1.5 H (0.5-0.9) mg/dL GFR Calculation 38.1 L (90-130) mL/min Glucose 342 H (65-115) mg/dL POC Glucose (70-110) mg/dL Calculated Osmolal ity 308 H (285-295) mOsm/k g Lactic Acid (0.5-2.2) mmol/L Lactate (0.5-2.2) mmol/L Calcium 8.9 (8.5-10.5) mg/dL Magnesium (1.7-2.3) mg/dL Total Bilirubin 0.4 (0.15-1.2) mg/dL AST 20 (0-32) U/L ALT 15 (0-33) U/L Alkaline Phosphata se 134 H (35-105) IU/L Total Protein 7.0 (6.6-8.7) g/dL Albumin 3.7 (3.5-5.2) g/dL Globulin 3.3 (1.3-4.6) g/dL Urine Color (Yellow) Urine Appearance (CLEAR) Urine pH (5-7) Ur Specific Gravit y (1.005-1.030) Urine Protein (Negative) Urine Glucose (UA) (Normal) Urine Ketones (Negative) Urine Blood (Negative) Urine Nitrate (Negative) Urine Bilirubin (Negative) Urine Urobilinogen (Negative) mg/dL Ur Leukocyte Estephania ase (Negative) Urine RBC (0-2) /hpf Urine WBC (0-5) /hpf Ur Squamous Epith Cells (0-5) /hpf Amorphous Sediment Urine Bacteria (NONE) /hpf Urine Mucus /hpf Urine Opiates Scre en (Negative) ng/mL Ur Barbiturates Sc reen (Negative) ng/mL Ur Phencyclidine S crn (Negative) ng/mL Ur Amphetamines Sc reen (Negative) ng/mL U Benzodiazepines Scrn (Negative) ng/mL Urine Cocaine Scre en (Negative) ng/mL U Marijuana (THC) Screen (Negative) ng/mL Serum Ketones Negative (Negative) 02/14/21 02/14/21 02/14/21 Range/Units 10:47 17:15 17:55 WBC Corrected WBC RBC Hgb Hct MCV MCH MCHC RDW Plt Count MPV Gran % Neut % (Auto) Lymph % (Auto) Charlton % (Auto) Eos % (Auto) Baso % (Auto) Neut # (Auto) Lymph # (Auto) Charlton # (Auto) Eos # (Auto) Baso # (Auto) Absolute Gran (aut o) Nucleated RBC % (a uto) Total Counted (0-100) Atypical Lymphs % (0-5) % Absolute Neutrophi ls (1.4-6.5) 10^3/c mm Segmented Neutroph ils % Abs Segm Neuts (Ma n) (1.6-7.1) 10/cmm Band Neutrophils % Abs Band Neuts (Ma n) (0.0-1.2) 10^3/c mm Absolute Lymphocyt es (1.2-3.4) 10^3/c mm Lymphocytes (Manua l) % Monocytes (Manual) % Absolute Monocytes (0.1-0.6) 10^3/c mm Eosinophils (Manua l) % Absolute Eosinophi ls (0.0-0.7) 10^3/c mm Basophils (Manual) % Absolute Basophils (0.0-0.2) 10^3/c mm Nucleated RBCs # Platelet Estimate (Normal) Sodium (136-145) mmol/L Potassium (3.5-5.1) mmol/L Chloride (98-107) mmol/L Carbon Dioxide (22-29) mmol/L Anion Gap (5-19) BUN (6-20) mg/dL Creatinine (0.5-0.9) mg/dL GFR Calculation (90-130) mL/min Glucose (65-115) mg/dL POC Glucose 202 H (70-110) mg/dL Calculated Osmolal ity (285-295) mOsm/k g Lactic Acid 1.6 (0.5-2.2) mmol/L Lactate (0.5-2.2) mmol/L Calcium (8.5-10.5) mg/dL Magnesium (1.7-2.3) mg/dL Total Bilirubin (0.15-1.2) mg/dL AST (0-32) U/L ALT (0-33) U/L Alkaline Phosphata se (35-105) IU/L Total Protein (6.6-8.7) g/dL Albumin (3.5-5.2) g/dL Globulin (1.3-4.6) g/dL Urine Color (Yellow) Urine Appearance (CLEAR) Urine pH (5-7) Ur Specific Gravit y (1.005-1.030) Urine Protein (Negative) Urine Glucose (UA) (Normal) Urine Ketones (Negative) Urine Blood (Negative) Urine Nitrate (Negative) Urine Bilirubin (Negative) Urine Urobilinogen (Negative) mg/dL Ur Leukocyte Estephania ase (Negative) Urine RBC (0-2) /hpf Urine WBC (0-5) /hpf Ur Squamous Epith Cells (0-5) /hpf Amorphous Sediment Urine Bacteria (NONE) /hpf Urine Mucus /hpf Urine Opiates Scre en Positive H (Negative) ng/mL Ur Barbiturates Sc reen Negative (Negative) ng/mL Ur Phencyclidine S crn Negative (Negative) ng/mL Ur Amphetamines Sc reen Negative (Negative) ng/mL U Benzodiazepines Scrn Positive H (Negative) ng/mL Urine Cocaine Scre en Negative (Negative) ng/mL U Marijuana (THC) Screen Positive H (Negative) ng/mL Serum Ketones (Negative) 02/14/21 02/15/21 02/15/21 Range/Units 20:43 05:41 05:41 WBC 11.2 H Corrected WBC RBC 3.97 L Hgb 11.2 L Hct 34.9 L MCV 87.9 MCH 28.2 MCHC 32.1 RDW 15.0 Plt Count 360 MPV 9.3 Gran % Neut % (Auto) 83.1 Lymph % (Auto) 11.3 Charlton % (Auto) 4.7 Eos % (Auto) 0.1 Baso % (Auto) 0.4 Neut # (Auto) 9.27 H Lymph # (Auto) 1.3 Charlton # (Auto) 0.5 Eos # (Auto) 0.0 Baso # (Auto) 0.1 Absolute Gran (aut o) Nucleated RBC % (a uto) 0 Total Counted (0-100) Atypical Lymphs % (0-5) % Absolute Neutrophi ls (1.4-6.5) 10^3/c mm Segmented Neutroph ils % Abs Segm Neuts (Ma n) (1.6-7.1) 10/cmm Band Neutrophils % Abs Band Neuts (Ma n) (0.0-1.2) 10^3/c mm Absolute Lymphocyt es (1.2-3.4) 10^3/c mm Lymphocytes (Manua l) % Monocytes (Manual) % Absolute Monocytes (0.1-0.6) 10^3/c mm Eosinophils (Manua l) % Absolute Eosinophi ls (0.0-0.7) 10^3/c mm Basophils (Manual) % Absolute Basophils (0.0-0.2) 10^3/c mm Nucleated RBCs # 0.0 Platelet Estimate (Normal) Sodium 135 L (136-145) mmol/L Potassium 3.4 L (3.5-5.1) mmol/L Chloride 98 (98-107) mmol/L Carbon Dioxide 21 L (22-29) mmol/L Anion Gap 19.4 H (5-19) BUN 12 (6-20) mg/dL Creatinine 1.2 H (0.5-0.9) mg/dL GFR Calculation 49.3 L (90-130) mL/min Glucose 159 H (65-115) mg/dL POC Glucose 190 H (70-110) mg/dL Calculated Osmolal ity 283 L (285-295) mOsm/k g Lactic Acid (0.5-2.2) mmol/L Lactate (0.5-2.2) mmol/L Calcium 9.0 (8.5-10.5) mg/dL Magnesium 1.5 L (1.7-2.3) mg/dL Total Bilirubin 0.4 (0.15-1.2) mg/dL AST 31 (0-32) U/L ALT 18 (0-33) U/L Alkaline Phosphata se 142 H (35-105) IU/L Total Protein 7.4 (6.6-8.7) g/dL Albumin 3.7 (3.5-5.2) g/dL Globulin 3.7 (1.3-4.6) g/dL Urine Color (Yellow) Urine Appearance (CLEAR) Urine pH (5-7) Ur Specific Gravit y (1.005-1.030) Urine Protein (Negative) Urine Glucose (UA) (Normal) Urine Ketones (Negative) Urine Blood (Negative) Urine Nitrate (Negative) Urine Bilirubin (Negative) Urine Urobilinogen (Negative) mg/dL Ur Leukocyte Estephania ase (Negative) Urine RBC (0-2) /hpf Urine WBC (0-5) /hpf Ur Squamous Epith Cells (0-5) /hpf Amorphous Sediment Urine Bacteria (NONE) /hpf Urine Mucus /hpf Urine Opiates Scre en (Negative) ng/mL Ur Barbiturates Sc reen (Negative) ng/mL Ur Phencyclidine S crn (Negative) ng/mL Ur Amphetamines Sc reen (Negative) ng/mL U Benzodiazepines Scrn (Negative) ng/mL Urine Cocaine Scre en (Negative) ng/mL U Marijuana (THC) Screen (Negative) ng/mL Serum Ketones (Negative) 02/15/ Range/Units 06:11 WBC Corrected WBC RBC Hgb Hct MCV MCH MCHC RDW Plt Count MPV Gran % Neut % (Auto) Lymph % (Auto) Charlton % (Auto) Eos % (Auto) Baso % (Auto) Neut # (Auto) Lymph # (Auto) Charlton # (Auto) Eos # (Auto) Baso # (Auto) Absolute Gran (aut o) Nucleated RBC % (a uto) Total Counted (0-100) Atypical Lymphs % (0-5) % Absolute Neutrophi ls (1.4-6.5) 10^3/c mm Segmented Neutroph ils % Abs Segm Neuts (Ma n) (1.6-7.1) 10/cmm Band Neutrophils % Abs Band Neuts (Ma n) (0.0-1.2) 10^3/c mm Absolute Lymphocyt es (1.2-3.4) 10^3/c mm Lymphocytes (Manua l) % Monocytes (Manual) % Absolute Monocytes (0.1-0.6) 10^3/c mm Eosinophils (Manua l) % Absolute Eosinophi ls (0.0-0.7) 10^3/c mm Basophils (Manual) % Absolute Basophils (0.0-0.2) 10^3/c mm Nucleated RBCs # Platelet Estimate (Normal) Sodium (136-145) mmol/L Potassium (3.5-5.1) mmol/L Chloride (98-107) mmol/L Carbon Dioxide (22-29) mmol/L Anion Gap (5-19) BUN (6-20) mg/dL Creatinine (0.5-0.9) mg/dL GFR Calculation (90-130) mL/min Glucose (65-115) mg/dL POC Glucose 167 H (70-110) mg/dL Calculated Osmolal ity (285-295) mOsm/k g Lactic Acid (0.5-2.2) mmol/L Lactate (0.5-2.2) mmol/L Calcium (8.5-10.5) mg/dL Magnesium (1.7-2.3) mg/dL Total Bilirubin (0.15-1.2) mg/dL AST (0-32) U/L ALT (0-33) U/L Alkaline Phosphata se (35-105) IU/L Total Protein (6.6-8.7) g/dL Albumin (3.5-5.2) g/dL Globulin (1.3-4.6) g/dL Urine Color (Yellow) Urine Appearance (CLEAR) Urine pH (5-7) Ur Specific Gravit y (1.005-1.030) Urine Protein (Negative) Urine Glucose (UA) (Normal) Urine Ketones (Negative) Urine Blood (Negative) Urine Nitrate (Negative) Urine Bilirubin (Negative) Urine Urobilinogen (Negative) mg/dL Ur Leukocyte Estephania ase (Negative) Urine RBC (0-2) /hpf Urine WBC (0-5) /hpf Ur Squamous Epith Cells (0-5) /hpf Amorphous Sediment Urine Bacteria (NONE) /hpf Urine Mucus /hpf Urine Opiates Scre en (Negative) ng/mL Ur Barbiturates Sc reen (Negative) ng/mL Ur Phencyclidine S crn (Negative) ng/mL Ur Amphetamines Sc reen (Negative) ng/mL U Benzodiazepines Scrn (Negative) ng/mL Urine Cocaine Scre en (Negative) ng/mL U Marijuana (THC) Screen (Negative) ng/mL Serum Ketones (Negative) Discharge Plan Discharge Patient Disposition: Admitted As Inpatient Admit Provider: Clyde Lopez Condition: Stable Discharge Diet: Diabetic Discharge Activity: Increase activity as tolerated 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 Code ED Exhibits Manager for Chg Fwd Exam Comprehensive
[2021-02-14 05:19] LABS: Lactate (Lactic Acid level) 3.7 mmol/L (0.5-2.2)
[2021-02-14] MEDS: sodium chloride 0.9% 1,000 ML 999 ML IV ×2 (05:44→10:07)
[2021-02-14] MEDS: HYDROmorphone 1 mg/mL INJ 1 mL IVP (05:45)
[2021-02-14 06:10] LABS: Bilirubin Urine Neg (Negative); Blood Urine 3+ (Negative); Glucose Urine UA 4+ (Normal); Ketones Urine Negative (Negative); Nitrate Urine Negative (Negative); Protein Urine 3+ (Negative); Specific Gravity, Urine 1.005 (1.005-1.030); Urine Appearance Hazy (CLEAR); Urine Color Yellow (Yellow); pH Urine 5 (5-7)
[2021-02-14 06:11] LABS: Add Urine Microscopic? YES; Leukocyte Esterase Urine 1+ (Negative); Urobilinogen Urine Norm (Negative)
[2021-02-14 06:12] LABS: Bacteria Urine 2+ /hpf; Mucus Urine TRACE /hpf; RBC Urine 0-4 /hpf (0-2); Squamous Epithelial Cell Urine 0-4 /hpf (0-5); WBC Urine TOO NUMEROUS TO CNT /hpf (0-5)
[2021-02-14 06:13] LABS: Add Urine Culture? Yes
[2021-02-14 06:16] LABS: Alanine Aminotransferase 15 U/L (0-33); Albumin Level 3.7 g/dL (3.5-5.2); Alkaline Phosphatase 134 IU/L (35-105); Anion Gap 20.8 (5-19); Aspartate Amino Transferase 20 U/L (0-32); Blood Urea Nitrogen 19 mg/dL (6-20); Calcium 8.9 mg/dL (8.5-10.5); Carbon Dioxide 20 mmol/L (22-29); Chloride 104 mmol/L (98-107); Globulin 3.3 g/dL (1.3-4.6); Glomerular Filtration Rate 38.1 mL/min (90-130); Glucose 342 mg/dL (65-115); Osmolality Calculated 308 mOsm/kg (285-295); Potassium 3.8 mmol/L (3.5-5.1); Sodium 141 mmol/L (136-145); Total Bilirubin 0.4 mg/dL (0.15-1.2)
[2021-02-14 06:27] LABS: Hematocrit 33.1 % (37.0-47.0); Hemoglobin 10.6 g/dL (11.5-15.3); Mean Corpuscular Hemoglobin 28.4 pg (28.0-34.0); Mean Corpuscular Volume 88.7 fL (81-99); Mean Platelet Volume 8.6 fL (7.4-10.4); Platelet Count 419 10^3/cmm (130-400); Red Blood Count 3.73 10^6/uL (4.1-5.3); Red Cell Distribution Width 14.9 % (12.1-15.1); White Blood Count 13.4 10^3/uL (4.0-10.0)
[2021-02-14 06:37] LABS: Slide Review Slide Review Perform
[2021-02-14 06:38] LABS: Absolute Neutrophil 11.1 10^3/cmm (1.4-6.5); Absolute Segmented Neutrophil 11.1 10/cmm (1.6-7.1); Eosinophils 0 %; Lymphocytes 8 %; Lymphocytes Absolute 1.1 10^3/cmm (1.2-3.4); Monocytes Absolute 1.2 10^3/cmm (0.1-0.6); Platelet Estimate Normal (Normal); Segmented Neutrophils 83 %; Total Cells Counted 100 (0-100)
--- NOTE | 2021-02-14 08:09 | CT_ITS ---
WS: [id number] CT ABDOMEN PELVIS TECHNIQUE: Noncontrast CT of the abdomen and pelvis with coronal and sagittal reformatted images. CLINICAL INFORMATION: flank pain COMPARISON: February 14, 2021 DLP: 1681.[address] scans at [facility] use at least one of these dose optimization techniques: automat ed exposure control; mA and/or kV adjustment per patient size (includes targeted exams where dose is matched to clinical indication); or iterative reconstruction. FINDINGS: Residual contrast in the ureters from recent CT. Lung bases are well aerated. Diffuse fatty infiltrat ion liver. Cholecystectomy clips. Small esophageal hiatal hernia. Adrenal glands are normal. Contrast in the right ureter. No obstructing right renal or ureteral calculi. No obstructing left chely al or ureteral calculi. No hydronephrosis. Contrast is visualized in the bladder. Normal symmetric re nal excretion bilaterally. No delayed emptying. No evidence of small or large bowel obstruction. Normal appendix in the right lower quadrant. No evid ence of acute appendicitis. Pelvic phleboliths. CT/CT kidney stone [id number] IMPRESSION: 1. No obstructing renal or ureteral calculi. 2. Normal bilateral renal excretion with contrast in the ureters and bladder. No delayed excretion or delayed nephrogram to indicate obstruction. 3. Incidental fat-containing umbilical hernia. 4. No evidence of acute appendicitis. Normal appendix. 5. No other significant changes from previous
[2021-02-14] MEDS: hyDRALAzine 20 mg/mL INJ 1 mL 10 MG IVP (08:47)
[2021-02-14] MEDS: metoprolol tartrate 1 mg/1 mL SDV 5 mL 5 MG IV (08:48)
[2021-02-14] MEDS: cefTRIAXone 2,000 MG in sodium chloride 0.9% (plus) 50 ML 100 MG IV (08:52)
[2021-02-14] MEDS: lisinopril 10 mg Tablet 20 MG PO (10:06)
[2021-02-14 11:11] LABS: Lactic Sepsis W/Reflex 1.6 mmol/L (0.5-2.2)
--- NOTE | 2021-02-14 14:35 | PC.NURSE ---
Report attempted to be called; will call back
--- NOTE | 2021-02-14 14:43 | P.HP_ITS ---
Providers/Chief Complaint Primary Care Provider: Fredis Mercer MD Chief Complaint: right flank pain History of Present Illness Cherrie Solomon is a 40 year old female that presents to the emergency department complaining of vomiting, right-sided abdominal/flank pain. She denies any fever. She really has not had many urinary symptoms. She reports she has abdominal pain frequently which she takes an occasional narcotic for. She v omits almost on a daily basis. She has frequent falls. She denies any chest pain. She cannot tell if she has any blood in her stool as her vision is poor. There is some concern the patient is still using alcohol. However the patient reported to me she has not drank in quite some time, and no significant alcohol levels are noted in her frequent emergency department visits. Review of Systems General: Reports: 10 or more systems reviewed and unremarkable except in HPI and below Const: Denies: fever(s) Eyes: Reports: change in vision and other (Reports overall decreased vision from her diabetes and has not yet seen an ) ENMT: Denies: throat pain Card: Denies: chest pain Resp: Denies: dyspnea GI: Reports: abdominal pain, nausea and vomiting : Reports: flank pain Musc: Denies: neck pain Skin/Breast: Denies: rash Neuro: Denies: headache(s) Psych: Reports: anxiety and depression Endo: Denies: polyuria Keith/Lymph: Denies: easy bruising All/Imm: Denies: urticaria Medications/Allergies Home Medications Medication Instructions Recorded Confirmed Last Taken Type insulin lispro See Rx Instructions .ROUTE .COMPLEX 12/13/20 02/14/21 12/21/20 History Lantus Solostar U-100 Insulin 5 unit SUBCUT BEDTIME 12/24/20 02/14/21 02/13/21 History amlodipine 10 mg tablet 10 mg PO DAILY 30 Days #30 tab 01/31/21 02/14/21 02/13/21 Rx carvedilol 12.5 mg tablet 12.5 mg PO BID 30 Days #60 tab 01/31/21 02/14/21 02/13/21 Rx duloxetine 30 mg capsule,delayed 30 mg PO BID 30 Days #60 cap 01/31/21 02/14/21 02/13/21 Rx release gabapentin 300 mg capsule 300 mg PO Q8H #90 cap 01/31/21 02/14/21 02/13/21 Rx meloxicam 15 mg tablet 15 mg PO DAILY 30 Days #30 tab 01/31/21 02/14/21 02/13/21 Rx pantoprazole 40 mg tablet,delayed 40 mg PO BID #60 tab 01/31/21 02/14/21 02/13/21 Rx release promethazine 25 mg tablet 25 mg PO Q6H PRN #30 tab 01/31/21 02/14/21 Unknown Rx propranolol 20 mg tablet 20 mg PO TID 30 Days #90 tab 01/31/21 02/14/21 02/13/21 Rx buspirone 15 mg PO BID 02/14/21 02/14/21 02/13/21 History citalopram 20 mg PO DAILY 02/14/21 02/14/21 02/13/21 History Allergies Allergy/AdvReac Type Severity Reaction Status Date / Time morphine Allergy ALGY-Difficulty Verified 02/14/21 04:39 Breathing PFSH Acute PFSH: Medical History Back pain CKD (chronic kidney disease) stage 2, GFR 60-89 ml/min baseline Cr is around 1.0 Coronary artery disease hx of stenting Diabetes mellitus type 1 diagnosed age 15, history of peripheral neuropathy, gastroparesis and nephropathy Diabetic foot ulcer s/p surgical intervention and eventual amputation Diabetic gastroparesis Diabetic ophthalmopathy Foot osteomyelitis, right Gastroparesis Hyperlipidemia Hypertension 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 Nausea & vomiting Non-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 PTSD (post-traumatic stress disorder) Suicidal ideation Toe infection Surgical History Below-knee amputation of left lower extremity H/O esophagogastroduodenoscopy (12/31/20) Bile reflux gastritis, grade B esophagitis H/O exploratory laparotomy x 3 History of amputation of right forefoot Hx of cholecystectomy Previous section x 3 S/P coronary artery stent placement x 1 S/P percutaneous endoscopic gastrostomy (PEG) tube placement Family History Unknown Diabetes extensive, type II Other CHF (congestive heart failure) Social History Smoking and tobacco status: former smoker Quit status (tobacco): has quit using tobacco Former quit date comment: 15 yrs ago Alcohol intake: former Former alcohol use details: 15 yrs ago Household members: spouse Marital status: Sexually active: Yes (1, ) Female Reproductive History: Date of last menstrual period: 12/17/20 Vitals/I&O/Wt Last Vital Signs Temp 98.8 F 02/14/21 10:04 Pulse 99 02/14/21 12:56 Resp 16 02/14/21 12:56 BP 124/70 02/14/21 12:56 Pulse Ox 99 02/14/21 12:56 02/13/21 02/14/21 02/14/21 22:59 06:59 14:59 Intake Total 2049 Balance 2049 Weight last 48 hrs Weight 83.915 kg Physical Exam Narrative: EXAM NARRATIVE: General exam is a female, requesting pain medicines HEENT: Pupils equally round. Oropharynx clear. Neck is supple no lymphadenopathy or thyromegaly Cardiovascular regular rate and rhythm, no murmur, borderline tachycardic Lungs clear no wheezing or crackles Abdomen is soft with positive bowel sounds. Tenderness noted on the right. Back without rash. was deferred Extremities no cyanosis clubbing or edema. Left with below the knee amputation with a small ulceration of her stump with no evidence of infection. Right foot with toe amputation site with some sutures. Skin without rash Neuro no obvious focal deficits Data : 02/14/21 06:21 02/14/21 05:55 Micro: Microbiology 02/14/21 10:49 Blood Culture - Preliminary Blood SPECIMEN COLLECTED 02/14/21 10:47 Blood Culture - Preliminary Blood SPECIMEN COLLECTED Other data: Signout follow-upCalcium 8.9, lactic acid 3.7 with repeat of 1.6 LFTs normal with exception of alk phos of 134 Albumin 3.7 Urinalysis too numerous to count whites, 0-4 squamous, 0-4 reds Alcohol level less than 10, serum ketones negative Abdomen pelvis CT no acute findings, no evidence of obstructive renal calculi A&P Assessment and plan (1) Intractable nausea and vomiting: Hydration Zofran for nausea Clear liquids as tolerated. Recent THC use which could be could be contributing as well as history of gastroparesis Status: Acute (2) UTI (urinary tract infection): Continue Rocephin Urine culture Likely because of elevated white blood cell count, possible cause of elevated lactic acid in addition to vomiting Blood cultures were also drawn Status: Acute (3) Acute kidney injury: Hydration Repeat renal function tomorrow Avoid anti-inflammatories Status: Acute (4) Elevated lactic acid level: Has returned to normal Status: Acute (5) Amputation of toe of right foot: Podiatry consultation. Sutures are still in foot. Status: Acute (6) Diabetes mellitus type 1: Sliding scale insulin Low-dose Lantus No evidence of DKA. Serum ketones negative. Status: Chronic Qualifiers: Diabetes mellitus complication status: with hyperglycemia Qualified Code(s): E10.65 - Type 1 diabetes mellitus with hyperglycemia (7) Chronic pain syndrome: Hydrocodone as needed Continue chronic medications Status: Acute Additional A&P Information Past history of alcohol use. Patient reports she has not drank in quite some time. Alcohol levels in the ER or not elevated. ER physician initiated CIWA orders on admission. Will leave overnight to make sure no withdrawal is occurring. Thiamine and folate have been ordered Full code Lovenox for DVT prophylaxis Attestations Medical Necessity Statement*: Will need less than 2 midnight stay for evaluation and treatment of UTI, intractable nausea and vomiting Time Spent in Patient Care: Greater than 35 minutes 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 Code Acute [place] Supervisor for [facility] Diagnoses Intractable nausea and vomiting R11.2 UTI (urinary tract infection) N39.0 Acute kidney injury N17.9 Elevated lactic acid level R79.89 Amputation of toe of right foot S98.131A Diabetes mellitus type 1 E10.65 Diabetes mellitus complication status: with hyperglycemia Chronic pain syndrome G89.4
[2021-02-14 15:02] LABS: Ketone (Acetest) Serum Negative (Negative)
--- NOTE | 2021-02-14 16:19 | PC.NURSE ---
Rcvd verbal order from Dr Sin for Bacitracin Cream. Operations Clerk put orders in.
[2021-02-14] MEDS: ondansetron 2 mg/ML SDV 2 mL 4 MG IVP (16:24)
[2021-02-14] MEDS: enoxaparin 40 mg/0.4 mL Syringe SUBCUT (16:25)
[2021-02-14] MEDS: sodium chloride 0.9% 1,000 ML 100 ML IV (16:26)
[2021-02-14] MEDS: HYDROcodone-acetaminophen 5-325 mg Tablet 1 TAB PO ×2 (16:26→21:13)
[2021-02-14] MEDS: thiamine 100 mg Tablet PO (16:27)
[2021-02-14] MEDS: multivitamin therapeutic Tablet 1 TAB PO (16:27)
[2021-02-14] MEDS: folic acid 1 mg Tablet PO (16:27)
[2021-02-14] MEDS: gabapentin 300 mg Capsule PO ×2 (16:27→22:48)
--- NOTE | 2021-02-14 16:29 | PM.CONSULT ---
Providers/Reason For Consult Consulting Physician/Specialty*: Rafael Sin D.P.M. Reason for Consult*: Status post right fourth toe amputation Attending Physician: Clyde Lopez MD Primary Care Provider: Fredis Mercer MD History of Present Illness History of Present Illness Cherrie Solomon is a 40 year old type I diabetic female is consulted for follow-up on amputation site right foot. Patient underwent right fourth toe amputation at the metatarsophalangeal joint 01/19/2021 secondary to osteomyelitis. The following week in podiatry clinic she followed up incision was well-healing at that time. The next week she was to follow-up for suture removal she was a no-show. She states that she increased her activity several days ago she noticed that there was some opening up of the incision. History of left below-knee amputation. Review of Systems Const: Denies: fever(s) or chills Card: Denies: chest pain or dyspnea on exertion Resp: Denies: dyspnea or productive cough GI: Denies: abdominal pain, nausea or vomiting Musc: Reports: extremity pain, extremity swelling and limited range of motion Skin/Breast: Reports: dry skin, surgical incision and nail changes; Denies: changes in skin color Neuro: Denies: numbness in extremities or weakness in extremities Psych: Denies: anxiety Keith/Lymph: Denies: easy bruising or easy bleeding Meds/Allergies Home Medications and Allergies Home Medications Medication Instructions Recorded Confirmed Last Taken Type insulin lispro See Rx Instructions .ROUTE .COMPLEX 12/13/20 02/14/21 12/21/20 History Lantus Solostar U-100 Insulin 5 unit SUBCUT BEDTIME 12/24/20 02/14/21 02/13/21 History amlodipine 10 mg tablet 10 mg PO DAILY 30 Days #30 tab 01/31/21 02/14/21 02/13/21 Rx carvedilol 12.5 mg tablet 12.5 mg PO BID 30 Days #60 tab 01/31/21 02/14/21 02/13/21 Rx duloxetine 30 mg capsule,delayed 30 mg PO BID 30 Days #60 cap 01/31/21 02/14/21 02/13/21 Rx release gabapentin 300 mg capsule 300 mg PO Q8H #90 cap 01/31/21 02/14/21 02/13/21 Rx meloxicam 15 mg tablet 15 mg PO DAILY 30 Days #30 tab 01/31/21 02/14/21 02/13/21 Rx pantoprazole 40 mg tablet,delayed 40 mg PO BID #60 tab 01/31/21 02/14/21 02/13/21 Rx release promethazine 25 mg tablet 25 mg PO Q6H PRN #30 tab 01/31/21 02/14/21 Unknown Rx propranolol 20 mg tablet 20 mg PO TID 30 Days #90 tab 01/31/21 02/14/21 02/13/21 Rx buspirone 15 mg PO BID 02/14/21 02/14/21 02/13/21 History citalopram 20 mg PO DAILY 02/14/21 02/14/21 02/13/21 History Allergies Allergy/AdvReac Type Severity Reaction Status Date / Time morphine Allergy ALGY-Difficulty Verified 02/14/21 04:39 Breathing PFSH Acute PFSH: Medical History Back pain CKD (chronic kidney disease) stage 2, GFR 60-89 ml/min baseline Cr is around 1.0 Coronary artery disease hx of stenting Diabetes mellitus type 1 diagnosed age 15, history of peripheral neuropathy, gastroparesis and nephropathy Diabetic foot ulcer s/p surgical intervention and eventual amputation Diabetic gastroparesis Diabetic ophthalmopathy Foot osteomyelitis, right Gastroparesis Hyperlipidemia Hypertension 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 Nausea & vomiting Non-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 PTSD (post-traumatic stress disorder) Suicidal ideation Toe infection Surgical History Below-knee amputation of left lower extremity H/O esophagogastroduodenoscopy (12/31/20) Bile reflux gastritis, grade B esophagitis H/O exploratory laparotomy x 3 History of amputation of right forefoot Hx of cholecystectomy Previous section x 3 S/P coronary artery stent placement x 1 S/P percutaneous endoscopic gastrostomy (PEG) tube placement Family History Unknown Diabetes extensive, type II Other CHF (congestive heart failure) Social History Smoking and tobacco status: former smoker Quit status (tobacco): has quit using tobacco Former quit date comment: 15 yrs ago Alcohol intake: former Former alcohol use details: 15 yrs ago Household members: spouse Marital status: Sexually active: Yes (1, ) Female Reproductive History: Date of last menstrual period: 12/17/20 Vitals/I&O/Wt Last Vital Signs Temp 99.1 F 02/14/21 15:17 Pulse 102 H 02/14/21 15:53 Resp 16 02/14/21 15:17 BP 167/89 02/14/21 15:17 Pulse Ox 96 02/14/21 15:53 02/14/21 02/14/21 02/14/21 06:59 14:59 22:59 Intake Total 2049 Balance 2049 Weight last 48 hrs Weight 185 lb Physical Exam Narrative: EXAM NARRATIVE: GENERAL: Patient is alert and oriented ?3 and in no acute distress. The following is a focused right lower extremity exam. VASCULAR: Dorsalis pedis palpable +2, posterior tibial arteries palpable +2. Capillary refill time less than 3 seconds to the distal fifth toe and amputation site of the second toe. Calf is supple and nontender proximally and distally. Decreased pedal hair growth. Focal edema to the right fourth toe. NEUROLOGICAL: Protective sensation intact 0/10 sites, tested with [place] Michaela monofilament to bilateral feet. DERMATOLOGICAL: Most small dorsal sutures are intact and the incision at this site is well healed. Centrally and distally there is dehiscence and sutures pulled through, area of dehiscence measures 3.5 cm no deep structures exposed. Does not probe to bone, no purulent drainage, has hyperkeratosis at the margin. MUSCULOSKELETAL: Status post left below-knee amputation. Status post right hallux amputation. Status post right third toe amputation. Status post right fourth toe amputation. Data Micro: Micro: Microbiology 02/14/21 10:49 Blood Culture - Pr eliminary Blood SPECIMEN [facility] 02/14/21 10:47 Blood Culture - Pr eliminary Blood SPECIMEN [facility] A&P Assessment and plan (1) Pain of amputation stump of left lower extremity: Status: Acute (2) Diabetes mellitus type 1: Status: Chronic Qualifiers: Diabetes mellitus complication status: with hyperglycemia Qualified Code(s): E10.65 - Type 1 diabetes mellitus with hyperglycemia (3) Dehiscence of amputation stump: Status: Acute (4) Noncompliance: Status: Acute Additional A&P Information Patient is status post right fourth toe amputation at the metatarsophalangeal joint date of surgery 01/19/2021 secondary to osteomyelitis. She did not follow-up at her outpatient appointments. At this time there is dehiscence with a Loza grade 2 wound at the amputation site. This was excisionally debrided with a dermal curette followed by dressing consisting of bacitracin and sterile gauze. No deep structures exposed. Sutures were removed. Wound is clinically stable no acute signs of infection. Will order repeat x-ray right foot. Will do daily dressing change on the floor while hospitalized and follow-up in podiatry clinic outpatient once discharged. Consult Attestations Medical Necessity Statement: Status post right fourth toe amputation 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 Code Acute Infection Control Coordinator for [facility] Diagnoses Pain of amputation stump of left lower extremity T87.89; M79.605 Diabetes mellitus type 1 E10.65 Diabetes mellitus complication status: with hyperglycemia Dehiscence of amputation stump T87.81 Noncompliance Z91.19
[2021-02-14] MEDS: BuSPIRONE 10 mg Tablet 15 MG PO (17:06)
[2021-02-14] MEDS: pantoprazole DR 40 mg Tablet PO (17:06)
[2021-02-14] MEDS: duloxetine 30 mg Capsule PO (17:06)
[2021-02-14] MEDS: carvedilol 12.5 mg Tablet PO (17:06)
[2021-02-14 18:09] LABS: Glucose Point of Care 202 mg/dL (70-110)
[2021-02-14 18:46] LABS: Amphetamines Screen Urine Negative (Negative); Barbiturates Screen Urine Negative (Negative); Benzodiazepines Screen Urine Positive (Negative); Cocaine Screen Urine Negative (Negative); Opiate Screen Urine Positive (Negative); PCP Screen Urine Negative (Negative); THC Screen Urine Positive (Negative)
[2021-02-14 20:46] LABS: Glucose Point of Care 190 mg/dL (70-110)
[2021-02-14] MEDS: insulin glargine 100 units/1 mL 5 UNIT SUBCUT (21:22)
--- NOTE | 2021-02-14 21:27 | XR_ITS ---
WS: [id number] Right foot, 3 views, 02/14/2021 Clinical Data: post op 4 toe amputation Comparison: Right foot, 01/15/2021. Findings: The right fourth toe has been amputated. Amputation of the first and third toes occurred previously. The remainder the right foot shows no abnormalities. XR/XR foot RT min 3V* [id number] Impression: Amputation of the right fourth toe.
--- NOTE | 2021-02-14 21:51 | PC.NURSE ---
ROUNDING/CIWA C/O anxiety, agitation, nausea and pain. Scored on CIWA to get IV Ativan but pt up with walker coming to nurses station freq and wanting to shower. Wanted to get Ativan prior to shower stating it doesn't affect me that way but explained to her that she cannot receive it then get in the shower. Shower chair provided and nurse staying close by. Pt will ask over and over for things even though is answered already. While aidmary was looking for shower chair she asked me 5-6 times if she could shower. Stayed in shower quite a long time
[2021-02-14] MEDS: LORazepam 2 mg/mL INJ 1 mL IVP (22:32)
--- NOTE | 2021-02-14 22:49 | PC.NURSE ---
ANXIETY/AGITATION Since getting out of shower pt has been up in room. Very anxious/tearful c/o pain in abdomen and right side and repeating over and over it hurts so bad, it hurts so bad and asking for Dr to be called. Had emesis of green liquid but pt was visually observed sticking her hand in her mouth. Has received IV Ativan and nurse has been staying with pt. She will not lay down and is not safe to be up by herself after med.
--- NOTE | 2021-02-14 23:00 | PC.NURSE ---
ROUNDING/AGITATION Continues to repeat over and over how much pain she is in and she can't take anymore Hitting self in head with her fist. being notified. Nurse holding her hands
[2021-02-14] MEDS: ziprasidone 20 mg/mL SDV 10 MG IM (23:48)
[2021-02-14] MEDS: water for injection-sterile 10 ML (23:50)
[2021-02-15] VITALS: BP 135/76; PULSE 106; RESP 14; TEMP 37.3; O2SAT 97
--- NOTE | 2021-02-15 00:40 | PC.NURSE ---
MEEK Pt ended up receiving dose of IM Geodon for continued anxiety/agitation. Kept hitting herself in the head with her fists. Infiltrated her IV in left hand from this and it was removed. Geodon was effective and is now resting with eyes closed. Will restart IV when pt has rested awhile
[2021-02-15] MEDS: HYDROcodone-acetaminophen 5-325 mg Tablet 1 TAB PO ×2 (01:27→11:31)
[2021-02-15] MEDS: LORazepam 2 mg/mL INJ 1 mL IM (02:43)
--- NOTE | 2021-02-15 03:03 | PC.NURSE ---
AGITATION/ANXIETY Pt woke up agitated and anxious. Wanting to shower again and quite upset that she can't. Wanted to sit on side of bed and was doing so then she decided she was going to get down on her knees and crawl. Tore dressing off stump and was bleeding in floor. Got back into bed and dressings were changed. Had stepped in the blood and right foot dressing was soiled. Continued agitated. Saying over and over that she was in pain. Was given po Hydrocodone. Started c/o nausea and was putting her whole hand in her mouth to gag herself so she could throw up. Would not lay back down and unsafe to let her sit on side of bed. 1:1 sitter was obtained and was also given IM Ativan for CIWA score. Have been unable to obtain IV access yet. RN Production Material Handler is going to try.
--- NOTE | 2021-02-15 04:01 | PC.NURSE ---
ROUNDING Resting since IM Ativan was given. Did not wake for 0400 VS. Sitter at bedside
--- NOTE | 2021-02-15 05:32 | PC.NURSE ---
ROUNDING Has rested for intervals after last Ativan was given. When she does wake up she tries to stick her hand down her throat to throw up. Sitter remains at bedside. Dr Delaney came up from ER and replaced IV using US. Fluids were resumed
[2021-02-15 06:19] LABS: Glucose Point of Care 167 mg/dL (70-110)
[2021-02-15 06:35] LABS: Basophils # 0.1 10^3/uL (0.0-0.1); Basophils % 0.4 %; Eosinophils % 0.1 %; Hematocrit 34.9 % (37.0-47.0); Hemoglobin 11.2 g/dL (11.5-15.3); Lymphocytes # 1.3 10^3/uL (0.8-4.8); Lymphocytes % 11.3 %; Mean Corpuscular HGB Conc 32.1 g/dL (30.0-36.0); Mean Corpuscular Hemoglobin 28.2 pg (28.0-34.0); Mean Corpuscular Volume 87.9 fL (81-99); Mean Platelet Volume 9.3 fL (7.4-10.4); Monocytes # 0.5 10^3/uL (0.2-0.9); Monocytes % 4.7 %; Neutrophils # 9.27 10^3/uL (1.8-7.7); Neutrophils % 83.1 %; Nucleated Red Blood Cells % 0 %; Platelet Count 360 10^3/cmm (130-400); Red Blood Count 3.97 10^6/uL (4.1-5.3); White Blood Count 11.2 10^3/uL (4.0-10.0)
[2021-02-15 06:47] LABS: Alanine Aminotransferase 18 U/L (0-33); Albumin Level 3.7 g/dL (3.5-5.2); Alkaline Phosphatase 142 IU/L (35-105); Aspartate Amino Transferase 31 U/L (0-32); Blood Urea Nitrogen 12 mg/dL (6-20); Carbon Dioxide 21 mmol/L (22-29); Chloride 98 mmol/L (98-107); Globulin 3.7 g/dL (1.3-4.6); Glomerular Filtration Rate 49.3 mL/min (90-130); Glucose 159 mg/dL (65-115); Magnesium 1.5 mg/dL (1.7-2.3); Osmolality Calculated 283 mOsm/kg (285-295); Sodium 135 mmol/L (136-145); Total Bilirubin 0.4 mg/dL (0.15-1.2); Total Protein 7.4 g/dL (6.6-8.7)
[2021-02-15 06:48] LABS: Anion Gap 19.4 (5-19); Potassium 3.4 mmol/L (3.5-5.1)
[2021-02-15 08:00] VITALS: RESP 14
--- NOTE | 2021-02-15 08:15 | P.PN_ITS ---
Subjective Subjective: Interval history: When I entered the room the patient was sleeping peacefully. Patient reports she has pain when I awakened her and reported she was wondering if she could have something stronger. She is not sure if she is going to be able to eat. Events of last night noted. She received Ativan, antipsychotic. Medications: Reviewed: Yes Vitals/I&O/Wt Last Vital Signs Temp 99.1 F 02/15/21 00:00 Pulse 106 H 02/15/21 00:00 Resp 14 02/15/21 00:00 BP 135/76 02/15/21 00:00 Pulse Ox 97 02/15/21 00:00 02/14/21 02/15/21 02/15/21 22:59 06:59 14:59 Intake Total 360 / 2410 300 / 2710 1010 / 1010 Output Total 400 / 400 Balance 360 / 2410 -100 / 2310 1010 / 1010 Weight last 48 hrs Weight 80.558 kg Weight 83.915 kg Physical Exam Narrative: EXAM NARRATIVE: General exam is a female, requesting something stronger for pain Neck is supple no lymphadenopathy or thyromegaly Cardiovascular regular rate and rhythm, no murmur, borderline tachycardic Lungs clear no wheezing or crackles Abdomen is soft with positive bowel sounds. Tenderness noted on the right. Back without rash. Extremities no cyanosis clubbing or edema. Left with below the knee amputation with a small ulceration of her stump with no evidence of infection. Right foot with toe amputation site with dressing Neuro no obvious focal deficits Data : 02/15/21 05:41 02/15/21 05:41 Micro: Microbiology 02/14/21 10:49 Blood Culture - Preliminary Blood SPECIMEN COLLECTED 02/14/21 10:47 Blood Culture - Preliminary Blood SPECIMEN COLLECTED A&P Assessment and plan (1) Intractable nausea and vomiting: Continue hydration. Reduce rate slightly. Zofran for nausea Clear liquids as tolerated. Patient reports she is not ready to advance diet Recent THC use which could be could be contributing as well as history of gastroparesis. I have reviewed her entire record regarding this. Patient indicates usually in 2 or 3 days she is able to eat better. Multiple healthcare workers have witnessed her sticking her hand down her mouth to induce vomiting. Status: Acute (2) UTI (urinary tract infection): Continue Rocephin Urine culture pending White blood cell count decreasing Blood cultures pending Status: Acute (3) Acute kidney injury: Resolving Avoid anti-inflammatories Status: Acute (4) Elevated lactic acid level: Has returned to normal Status: Acute (5) Amputation of toe of right foot: Podiatry consultation appreciated. X-ray pending Status: Acute (6) Diabetes mellitus type 1: Sliding scale insulin Low-dose Lantus No evidence of DKA. Serum ketones negative. Status: Chronic Qualifiers: Diabetes mellitus complication status: with hyperglycemia Qualified Code(s): E10.65 - Type 1 diabetes mellitus with hyperglycemia (7) Chronic pain syndrome: Hydrocodone as needed Continue chronic medications Status: Acute Additional A&P Information Past history of alcohol use. Patient reports she has not drank in quite some time. Alcohol levels in the ER or not elevated. ER physician initiated CIWA orders on admission. Will leave overnight to make sure no withdrawal is occurring. Thiamine and folate have been ordered. Discontinue CIWA protocol at this time Chronic pain. I do not have any objective evidence for the need for IV narcotics in the form of Dilaudid. This would worsen her gastroparesis. Urinary tract infection does not warrant IV narcotics nor does gastroparesis. She reports her pain is similar to her chronic pain and I do not believe it is from pyelonephritis. She has no evidence of kidney inflammation on CT and no evidence of obstruction. At this point I will not give IV pain medication as I think it is detrimental to the patient's ongoing treatment and health. Depression. Continue current medications. She has received multiple psychiatric consultations in the past. She is not voicing any suicidal or homicidal ideation currently. She does need outpatient psychiatric follow-up, which has been recommended multiple times. Should her clinical scenario change, consultation will be ordered. Full code Lovenox for DVT prophylaxis Attestations Medical Necessity Statement*: Needs continued hospital stay for IV antibiotics for UTI, and hydration as patient is still unable to take adequate amount of p.o. fluids to prevent severe dehydration and worsening renal dysfunction. 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 Code Acute Facility Maintenance Technician for Chg Fwd Diagnoses Intractable nausea and vomiting R11.2 UTI (urinary tract infection) N39.0 Acute kidney injury N17.9 Elevated lactic acid level R79.89 Amputation of toe of right foot S98.131A Diabetes mellitus type 1 E10.65 Diabetes mellitus complication status: with hyperglycemia Chronic pain syndrome G89.4
--- NOTE | 2021-02-15 09:48 | PC.CHAP ---
Pastoral Care Encounter/Spiritual Assessment Type of Contact [] Declined lime spreader visit [] Patient/Family/Request visit [] Outpatient visit [] Follow-up visit [] Physician referral [] Code/Alert [x] Routine visit [] Staff referral [] Actively dying [x] Patient sleeping [] Family support [] [] Out of room [] Palliative care [] [] Receiving care in room [] Pre-surgical visit [] Trauma [] Long length of stay [] ICU visit [] Other: Relational/Emotional Strength [] Patient feels connected with others/family/visitors/staff [] Distress [] Loneliness/isolation [] Abandonment Spirituality of Patient [] Person of Vanessa [] Attends Uatsdin of their Vanessa [] Believes in Prayer [] Reads Bible or Hindu materials [] There are Spiritual issues to be addressed Home Care Provider Interventions [] Prayer [] Active listening [] Non-anxious presence [] Spiritual/emotional support [] Crisis/trauma care [] Spiritual counseling [] Bereavement support [] Provided bereavement packet [] Provided Bible/devotional materials [] Provided toy/stuffed animal, coloring book to patient or family member [] Provided Communion [] Anointing/[place] [] Salvation [] Completed spiritual assessment [] Other: Impact on Illness or Injury [] Angry [] Fearful [] Anxious [] Often cries [] Exhaustion [] Unable to work [] Unable to attend yazidi [] Unable to walk/stand [] Unable to read [] Unable to drive [] Unable to eat/drink [] Unable to sleep [] Unable to be with family [] Patient intubated [] Other: Summary Time spent with patient
[2021-02-15] MEDS: cefTRIAXone 1,000 MG in sodium chloride 0.9% (plus) 50 ML 100 MG IV (10:51)
[2021-02-15] MEDS: thiamine 100 mg Tablet PO (10:52)
[2021-02-15] MEDS: carvedilol 12.5 mg Tablet PO ×2 (10:52→17:20)
[2021-02-15] MEDS: potassium chloride ER 20 mEq Tablet 40 MEQ PO (10:52)
[2021-02-15] MEDS: pantoprazole DR 40 mg Tablet PO ×2 (10:53→17:20)
[2021-02-15] MEDS: duloxetine 30 mg Capsule PO ×2 (10:53→17:20)
[2021-02-15] MEDS: amlodipine 10 mg Tablet PO (10:53)
[2021-02-15] MEDS: folic acid 1 mg Tablet PO (10:53)
[2021-02-15] MEDS: gabapentin 300 mg Capsule PO ×2 (10:54→17:20)
[2021-02-15] MEDS: multivitamin therapeutic Tablet 1 TAB PO (10:54)
[2021-02-15] MEDS: BuSPIRONE 10 mg Tablet 15 MG PO ×2 (10:59→17:20)
[2021-02-15] MEDS: LORazepam 2 mg/mL INJ 1 mL 1 MG IVP (12:02)
[2021-02-15] MEDS: OLANZapine 10 mg VIAL 5 MG IM (12:20)
[2021-02-15 13:12] LABS: Glucose Point of Care 155 mg/dL (70-110)
[2021-02-15] MEDS: water for injection-sterile 10 ML 3.2 ML (13:40)
[2021-02-15] MEDS: sodium chloride 0.9% 1,000 ML 100 ML IV (14:01)
--- NOTE | 2021-02-15 15:55 | PC.NURSE ---
AT APPROX.1130 PT REQUESTED PAIN MEDS AFTER BEING SOUND ASLEEP, PAIN MEDS ADMINISTERED AT 1131. AT APPROX. 1145 SITTER REQUESTED RN TO THE ROOM, PT WAS HITTING HERSELF AND TRYING TO PULL HER HAIR OUT. DR. HARRISON NOTIFIED AND HE ORDERED ATIVAN PRN FOR ANXIETY R/T CHRONIC PAIN. ADMINISTERED ATIVAN AT 1202. SHE CONTINUED THE PREV. BEHAVIORS AND STARTED TRYING TO MAKE HERSELF VOMIT. DR. HARRISON NOTIFIED AND UPDATED OF HER CURRENT BEHAVIORS. RECEVIED VERBAL ORDER FOR 5MG ZYPREXA IM. ADMINISTERED ZYPREXA IM AT 1220. PT THEN STARTED TO CALM DOWN AND IS CURRENTLY RESTING QUIETLY.
[2021-02-15 16:00] VITALS: BP 185/108; PULSE 104; RESP 18; TEMP 37.4; O2SAT 96
[2021-02-15 17:54] LABS: Glucose Point of Care 160 mg/dL (70-110)
[2021-02-15 20:00] VITALS: BP 168/88; PULSE 91; RESP 18; TEMP 36.7; O2SAT 97
[2021-02-15 20:55] LABS: Glucose Point of Care 176 mg/dL (70-110)
[2021-02-15] MEDS: insulin glargine 100 units/1 mL 5 UNIT SUBCUT (21:15)
[2021-02-15 23:57] VITALS: BP 100/67; PULSE 88; RESP 14; TEMP 36.9; O2SAT 94
[2021-02-16] MEDS: gabapentin 300 mg Capsule PO ×2 (01:44→08:39)
[2021-02-16] MEDS: sodium chloride 0.9% 1,000 ML 100 ML IV (01:44)
[2021-02-16] MEDS: promethazine 25 mg Tablet PO (02:49)
[2021-02-16 03:43] VITALS: BP 172/68; PULSE 105; RESP 16; TEMP 36.6; O2SAT 97
[2021-02-16 06:18] LABS: Glucose Point of Care 167 mg/dL (70-110)
[2021-02-16 07:54] VITALS: BP 172/108; PULSE 103; RESP 19; TEMP 37.1; O2SAT 94
[2021-02-16] MEDS: cefdinir 300 MG CAPSULE PO (08:38)
[2021-02-16] MEDS: carvedilol 12.5 mg Tablet PO (08:39)
[2021-02-16] MEDS: folic acid 1 mg Tablet PO (08:39)
[2021-02-16] MEDS: multivitamin therapeutic Tablet 1 TAB PO (08:39)
[2021-02-16] MEDS: amlodipine 10 mg Tablet PO (08:39)
[2021-02-16] MEDS: BuSPIRONE 10 mg Tablet 15 MG PO (08:39)
[2021-02-16] MEDS: duloxetine 30 mg Capsule PO (08:39)
[2021-02-16] MEDS: thiamine 100 mg Tablet PO (08:39)
[2021-02-16] MEDS: pantoprazole DR 40 mg Tablet PO (08:40)
[2021-02-16] MEDS: bacitracin ointment 28 gm 1 APPLIC TOPICAL (08:45)
[2021-02-16] MEDS: cyclobenzaprine 10 mg Tablet PO (08:45)
[2021-02-16 09:00] LABS: Basophils % 0.4 %; Eosinophils % 0.1 %; Hematocrit 37.1 % (37.0-47.0); Lymphocytes # 1.3 10^3/uL (0.8-4.8); Lymphocytes % 11.7 %; Mean Corpuscular HGB Conc 32.3 g/dL (30.0-36.0); Mean Corpuscular Hemoglobin 28.2 pg (28.0-34.0); Mean Corpuscular Volume 87.3 fL (81-99); Mean Platelet Volume 8.5 fL (7.4-10.4); Monocytes # 0.5 10^3/uL (0.2-0.9); Monocytes % 4.7 %; Neutrophils # 9.05 10^3/uL (1.8-7.7); Neutrophils % 82.6 %; Nucleated Red Blood Cells % 0 %; Platelet Count 425 10^3/cmm (130-400); Red Blood Count 4.25 10^6/uL (4.1-5.3); Red Cell Distribution Width 14.4 % (12.1-15.1); White Blood Count 10.9 10^3/uL (4.0-10.0)
[2021-02-16] MEDS: HYDROcodone-acetaminophen 5-325 mg Tablet 1 TAB PO (09:00)
[2021-02-16 09:28] LABS: Blood Urea Nitrogen 12 mg/dL (6-20); Calcium 9.5 mg/dL (8.5-10.5); Carbon Dioxide 23 mmol/L (22-29); Chloride 94 mmol/L (98-107); Glomerular Filtration Rate 78.7 mL/min (90-130); Glucose 159 mg/dL (65-115); Magnesium 1.6 mg/dL (1.7-2.3); Osmolality Calculated 277 mOsm/kg (285-295); Sodium 132 mmol/L (136-145)
[2021-02-16 09:32] LABS: Anion Gap 18.8 (5-19); Potassium 3.8 mmol/L (3.5-5.1)
--- NOTE | 2021-02-16 09:47 | P.DS_ITS ---
Discharge Providers Date of Admission: 02/15/21 09:54 Date of Discharge: February 16, 2021 Attending Provider at Admission: Clyde Lopez MD Attending Provider at Discharge: Clyde Lopez MD Primary Care Provider: Fredis Mercer MD Diagnoses at Discharge Discharge Diagnosis (1) Intractable nausea and vomiting: Status: Acute (2) UTI (urinary tract infection): Status: Acute (3) Acute kidney injury: Status: Acute (4) Elevated lactic acid level: Status: Acute (5) Amputation of toe of right foot: Status: Acute (6) Diabetes mellitus type 1: Status: Chronic Permanent problem details: diagnosed age 15, history of peripheral neuropathy, gastroparesis and nephropathy Qualifiers: Diabetes mellitus complication status: with hyperglycemia Qualified Code(s): E10.65 - Type 1 diabetes mellitus with hyperglycemia (7) Chronic pain syndrome: Status: Acute Reason for Visit Reason for Visit: right flank pain Hospital Course Hospital Course Cherrie is a 40-year-old white female who presented to the hospital with complaints of vomiting, and right flank pain. These have been significantly, and complaints and the cause for multiple emergency department visits as well as ER visits. She has a diagnosis of type 1 diabetes, gastroparesis, and chronic pain. While in the emergency department it was noted her white blood cell count was elevated, lactate was elevated, and significant UTI was present. She was placed in the hospital and hydrated, and started on ceftriaxone for her UTI. Pain medication was initiated. CT scan of her abdomen and pelvis demonstrated no specific cause for pain, or urologic obstruction. During her hospital stay her white blood cell count improved. She remained afebrile. She intermittently had vomiting which she attested that she did at home as well secondary to her gastroparesis. She was found on several occasions to appear to be inducing herself to vomit. Her pain overall she had tested was unchanged, and chronic in her right flank and right back. She had previously had multiple work-ups with CTs including thoracic and lumbar spine CTs. I encouraged her to follow-up as an outpatient, with her primary care provider and consideration of a pain clinic referral. Blood pressure was also intermittently elevated in the hospital, when agitation occurred. She did not voice any homicidal or suicidal ideation during her hospital stay. Follow-up with behavioral health care was arranged. During my conversations with her it did appear she was able to make her own decisions regarding her health care, and understand implications and risks of various medicines prescribed. She was ultimately able to be discharged on February 16 at which time she was able to tolerate a diet, and her urine culture had come back E. coli sensitive to oral antibiotics. She still complained of back pain, uncha nged from her chronic pain. Physical Exam Narrative: EXAM NARRATIVE: General exam calm and conversive Neck is supple no lymphadenopathy thyromegaly Cardiovascular regular rate and rhythm without murmur Lungs clear Abdomen is soft with positive bowel sounds. Right flank/back with tenderness to palpation but no obvious rash Extremities amputations as noted. Dressing present right foot placed by podiatry. Discharge Data Data Completed and Pending: Completed Studies During Hospitalization Category Date Time Status CT kidney stone 7 [id number] Stat Cat Scan 02/14/21 08:09 Completed XR foot RT min 3V * [id number] Routine Exams 02/14/21 21:27 Completed Pending at discharge Category Date Time Status Blood Culture Sta t Lab 02/14/21 10:49 Results Labs from last 24 hours 02/16/21 02/16/21 02/16/21 08:50 08:50 06:07 WBC 10.9 H RBC 4.25 Hgb 12.0 Hct 37.1 MCV 87.3 MCH 28.2 MCHC 32.3 RDW 14.4 Plt Count 425 H MPV 8.5 Neut % (Auto) 82.6 Lymph % (Auto) 11.7 [place] % (Auto) 4.7 Eos % (Auto) 0.1 Baso % (Auto) 0.4 Neut # (Auto) 9.05 H Lymph # (Auto) 1.3 [place] # (Auto) 0.5 Eos # (Auto) 0.0 Baso # (Auto) 0.0 Nucleated RBC % (a uto) 0 Nucleated RBCs # 0.0 Sodium 132 L Potassium 3.8 Chloride 94 L Carbon Dioxide 23 Anion Gap 18.8 BUN 12 Creatinine 0.8 GFR Calculation 78.7 L Glucose 159 H POC Glucose 167 H Calculated Osmolal ity 277 L Calcium 9.5 Magnesium 1.6 L 02/15/21 02/15/21 02/15/21 20:19 16:18 12:11 WBC RBC Hgb Hct MCV MCH MCHC RDW Plt Count MPV Neut % (Auto) Lymph % (Auto) [place] % (Auto) Eos % (Auto) Baso % (Auto) Neut # (Auto) Lymph # (Auto) [place] # (Auto) Eos # (Auto) Baso # (Auto) Nucleated RBC % (a uto) Nucleated RBCs # Sodium Potassium Chloride Carbon Dioxide Anion Gap BUN Creatinine GFR Calculation Glucose POC Glucose 176 H 160 H 155 H Calculated Osmolal ity Calcium Magnesium Vitals: Last Vital Signs Temp 98.8 F 02/16/21 07:54 Pulse 103 H 02/16/21 07:54 Resp 19 H 02/16/21 07:54 BP 172/108 02/16/21 07:54 Pulse Ox 94 02/16/21 07:54 Discharge Plan Discharge Patient Disposition: Home Condition: Stable Prescriptions: New cyclobenzaprine 10 mg Tablet 10 mg PO TID PRN (Reason: Muscle Spasms) Qty: 10 RF: 0 hydrocodone-acetaminophen 5-325 mg Tablet 1 tab PO Q4H PRN (Reason: Moderate To Severe Pain) Qty: 10 RF: 0 cefdinir 300 mg Capsule 300 mg PO BID Qty: 10 RF: 0 Continued amlodipine 10 mg tablet 10 mg PO DAILY 30 Days Qty: 30 RF: 0 carvedilol 12.5 mg tablet 12.5 mg PO BID 30 Days Qty: 60 RF: 0 duloxetine 30 mg capsule,delayed release(DR/EC) 30 mg PO BID 30 Days Qty: 60 RF: 0 gabapentin 300 mg capsule 300 mg PO Q8H Qty: 90 RF: 0 pantoprazole 40 mg tablet,delayed release (DR/EC) 40 mg PO BID Qty: 60 RF: 0 promethazine 25 mg tablet 25 mg PO Q6H PRN (Reason: Nausea) Qty: 30 RF: 0 Lantus Solostar U-100 Insulin 100 unit/mL (3 mL) insulin pen 5 unit SUBCUT BEDTIME RF: 0 citalopram 20 mg Tablet 20 mg PO DAILY RF: 0 buspirone 15 mg Tablet 15 mg PO BID RF: 0 insulin lispro 100 unit/mL Insulin Pen See Rx Instructions .ROUTE .COMPLEX RF: 0 Discontinued meloxicam 15 mg tablet 15 mg PO DAILY 30 Days Qty: 30 RF: 0 propranolol 20 mg tablet 20 mg PO TID 30 Days Qty: 90 RF: 0 Discharge Orders: Discharge Order (Routine); Ordered 02/16/21 Ordered By: Clyde Lopez Referrals: [facility] [Outside] (Please walk-in to complete your initial assessment anytime. Saturday-Saturday 8:00am-3:00pm. ) Rafael Sin DPM [Physician] - 7-10 days Fredis Mercer MD [Primary Care Provider] - Discharge Diet: Diabetic Discharge Activity: Increase activity as tolerated Patient Instructions: Opioid Safety Activity Restrictions/Additional Instructions: Follow-up with primary care provider 3 to 5 days Discharge Attestations Time Spent in Discharge Care*: greater than 30 min Status at Discharge: Cognitive status at discharge: cognitively intact , Behavioral status at discharge: cooperative , Quality Metrics Clinical Quality Measures During this hospital stay, did patient experience: None 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 Code Acute Chg FW DC note Diagnoses Intractable nausea and vomiting R11.2 UTI (urinary tract infection) N39.0 Acute kidney injury N17.9 Elevated lactic acid level R79.89 Amputation of toe of right foot S98.131A Diabetes mellitus type 1 E10.65 Diabetes mellitus complication status: with hyperglycemia Chronic pain syndrome G89.4
[2021-02-16] MEDS: magnesium oxide 400 mg tablet PO (10:21)
--- NOTE | 2021-02-16 10:59 | PC.CHAP ---
Pastoral Care Encounter/Spiritual Assessment Type of Contact [] Declined hydroelectric powerplant supervisor visit [] Patient/Family/Request visit [] Outpatient visit [] Follow-up visit [] Physician referral [] Code/Alert [x] Routine visit [] Staff referral [] Actively dying [] Patient sleeping [] Family support [] [] Out of room [] Palliative care [] [x] Receiving care in room [] Pre-surgical visit [] Trauma [] Long length of stay [] ICU visit [] Other: Relational/Emotional Strength [x] Patient feels connected with others/family/visitors/staff [] Distress [] Loneliness/isolation [] Abandonment Spirituality of Patient [x] Person of Vanessa [] Attends Temple of their [place] [] Believes in Prayer [] Reads Bible or Yazidism materials [] There are Spiritual issues to be addressed Machine Coil Assembler Interventions [x] Prayer [x] Active listening [x] Non-anxious presence [x] Spiritual/emotional support [] Crisis/trauma care [x] Spiritual counseling [] Bereavement support [] Provided bereavement packet [] Provided Bible/devotional materials [] Provided toy/stuffed animal, coloring book to patient or family member [] Provided Communion [] Anointing/[place] [] Salvation [x] Completed spiritual assessment [] Other: Impact on Illness or Injury [] Angry [] Fearful [] Anxious [] Often cries [] Exhaustion [] Unable to work [] Unable to attend adventist [] Unable to walk/stand [] Unable to read [] Unable to drive [] Unable to eat/drink [] Unable to sleep [] Unable to be with family [] Patient intubated [] Other: Summary she is feeling has a good attitude going home soon +1 Time spent with patient 10 mins
[2021-02-16 11:08] LABS: Glucose Point of Care 186 mg/dL (70-110)
[2021-02-16 11:38] VITALS: BP 165/94; PULSE 99; RESP 18; TEMP 36.6; O2SAT 97
[2021-02-16 13:05] VITALS: BP 165/94; PULSE 99; RESP 18; TEMP 36.6; O2SAT 97
== END 2021-02-16 12:50 | disposition home or self-care (01) | DRG 674 ==
LOC: ER 11:33 → MEDSURG 17:25
PROVIDERS: Emergency Medicine; Admitting Provider Internal Medicine; Emergency Provider Family Medicine; PCP Urology; Visit Provider Internal Medicine
DX: N39.0 Urinary tract infection, site not specified (principal); N17.9 Acute kidney failure, unspecified; E10.22 Type 1 diabetes mellitus with diabetic chronic kidney disease; I12.9 Hypertensive chronic kidney disease with stage 1 through stage 4 chronic kidney disease, or unspecified chronic kidney disease; N18.2 Chronic kidney disease, stage 2 (mild); I25.10 Atherosclerotic heart disease of native coronary artery without angina pectoris; Z95.5 Presence of coronary angioplasty implant and graft; E10.65 Type 1 diabetes mellitus with hyperglycemia; E10.43 Type 1 diabetes mellitus with diabetic autonomic (poly)neuropathy; E10.42 Type 1 diabetes mellitus with diabetic polyneuropathy; E10.21 Type 1 diabetes mellitus with diabetic nephropathy; E10.39 Type 1 diabetes mellitus with other diabetic ophthalmic complication; K31.84 Gastroparesis; E78.5 Hyperlipidemia, unspecified; F43.10 Post-traumatic stress disorder, unspecified; Z89.512 Acquired absence of left leg below knee; Z89.411 Acquired absence of right great toe; Z89.421 Acquired absence of other right toe(s); Z87.891 Personal history of nicotine dependence; G89.4 Chronic pain syndrome; F10.21 Alcohol dependence, in remission; T87.81 Dehiscence of amputation stump; Z91.19 Patient's noncompliance with other medical treatment and regimen; E86.0 Dehydration; M54.9 Dorsalgia, unspecified; B96.20 Unspecified Escherichia coli [E. coli] as the cause of diseases classified elsewhere; T87.89 Other complications of amputation stump
CPT/HCPCS: 36415; 36416; 73630; 74176; 80048; 80053; 80306; 81001; 82009; 82962; 83605; 83735; 85007; 85025; 87040; 87077; 87086; 87186; 96361; 96365; 96372; 96375; 99285; G0378; J0360; J0696; J1170; J1630; J1650; J1815 ×2; J2060; J2405; J3411; J3486; J3490; J7030; Q0169

== ENCOUNTER 2021-02-18 21:12 | Inpatient (IN) | payer MEDICAID, SELFPAY ==
[2021-02-18 21:16] VITALS: BP 119/79; PULSE 101; RESP 15; TEMP 36.6; O2SAT 100; BMI 22.1
--- NOTE | 2021-02-18 21:40 | PC.NURSE ---
Patient states she is suicidal. 1:1 sitter placed with patient.
--- NOTE | 2021-02-18 22:01 | W.ED.ABDPA2 ---
Documented by User: SAMUEL Maurice 02/19/21 00:49 HPI - Abdominal Pain General: Chief Complaint: Abdominal Pain Stated Complaint: ABD PAIN Time Seen by Provider: 02/18/21 21:22 Source: patient Mode of arrival: EMS Limitations: no limitations History of Present Illness: HPI narrative: Patient is a 40-year-old female here for concerns of continued abdominal pain but also has suicidal ideations. Patient has been seen in our facility countless times for identical abdominal pain. She has been admitted to the hospital several times without an identifiable cause other than her known gastroparesis. She was admitted recently for kidney problems . Patient reports she was discharged 2 days ago. She states she is having suicidal ideations. She states she cut herself countless times with a knife today until her took it away from her. She tells me she had a plan to cut herself deeper in a suicide attempt. MD elicited complaint: abdominal pain Pertinent past history: other (gastroparesis/chronic abdominal pain) Location: Diffuse Radiation: none Migration to: no migration Associated Symptoms: Reports nausea and vomiting; Denies change in bowel habits, change in stool character, chills, diarrhea, dysuria and fever(s) Related Data: Date of Last Menstrual Period: 12/17/20 Review of Systems Const: Denies: fever(s), chills, body aches, fatigue or malaise Card: Denies: chest pain Resp: Denies: dyspnea GI: Reports: abdominal pain, nausea and vomiting; Denies: diarrhea, change in bowel habits or change in stool character : Denies: flank pain or dysuria Musc: Denies: neck pain or back pain Neuro: Denies: headache(s), numbness in extremities, weakness in extremities or sensory changes Psych: Reports: anxiety, depression, hopelessness and suicidal ideation PFS ED PFSH: Medical History Back pain CKD (chronic kidney disease) stage 2, GFR 60-89 ml/min baseline Cr is around 1.0 Coronary artery disease hx of stenting Diabetes mellitus type 1 diagnosed age 15, history of peripheral neuropathy, gastroparesis and nephropathy Diabetic foot ulcer s/p surgical intervention and eventual amputation Diabetic gastroparesis Diabetic ophthalmopathy Foot osteomyelitis, right Gastroparesis Hyperlipidemia Hypertension 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 Nausea & vomiting Non-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 PTSD (post-traumatic stress disorder) Suicidal ideation Toe infection Surgical History Below-knee amputation of left lower extremity H/O esophagogastroduodenoscopy (12/31/20) Bile reflux gastritis, grade B esophagitis H/O exploratory laparotomy x 3 History of amputation of right forefoot Hx of cholecystectomy Previous section x 3 S/P coronary artery stent placement x 1 S/P percutaneous endoscopic gastrostomy (PEG) tube placement Family History Unknown Diabetes extensive, type II Other CHF (congestive heart failure) Social History Smoking and tobacco status: former smoker Quit status (tobacco): has quit using tobacco Former quit date comment: 15 yrs ago Alcohol intake: former Former alcohol use details: 15 yrs ago Household members: spouse Marital status: Sexually active: Yes (1, ) Female Reproductive History: Date of last menstrual period: 12/17/20 Physical Exam Const: COMMON NORMALS: no acute distress, patient oriented x3, no limitations and alert GENERAL APPEARANCE: cooperative NUTRITIONAL APPEARANCE: overweight ORIENTATION/CONSCIOUSNESS: Yes awake, Yes oriented to person, Yes oriented to place and Yes oriented to time HENMT: COMMON NORMALS: normocephalic and atraumatic HEAD & SCALP: normocephalic and atraumatic Resp: COMMON NORMALS: normal respiratory effort and clear to auscultation bilaterally AUSCULTATION: clear to auscultation bilaterally Cardio: COMMON NORMALS: regular rate and regular rhythm RATE: regular rate RHYTHM: regular rhythm GI: COMMON NORMALS: Normal to inspection, nondistended, normoactive bowel sounds present, Soft to palpation, No hepatosplenomegaly present and no masses PALPATION: Yes Soft to palpation, Yes Tenderness to palpation present (GI) (diffusely) and Yes No hepatosplenomegaly present Neuro: COMMON NORMALS: patient oriented x3 SENSORIUM/ORIENTATION: Yes alert, Yes oriented to person, Yes oriented to place and Yes oriented to time Psych: COMMON NORMALS: Normal thought process present, cooperative, normal affect and speech normal APPEARANCE: Yes grossly normal ACTIVITY/MOTOR BEHAVIOR: Yes Avoids eye contact (attititude/behavior) SPEECH: Yes normal speech THOUGHT PROCESS: Normal thought process present THOUGHT CONTENT: Yes Normal thought content present ATTENTION/CONCENTRATION: Yes attention grossly intact MEMORY/COGNITION: Yes memory grossly intact and Yes cognition grossly intact INSIGHT: Good insight present (Psych) JUDGEMENT: Fair judgement present (Psych) Skin: NARRATIVE SKIN EXAM: countless superficial abrasions to bilateral forearms and anterior thighs Course Consultations: Consultation #1: Dr. Gonzalez-accepts admission Consultation #2: Dr. Alexander-will consult on patient while in hospital Vital Signs: Vital signs: Vital Signs Temperature 98.4 F 02/19/21 03:37 Pulse Rate 68 02/19/21 03:37 Respiratory Rate 15 02/19/21 03:37 Blood Pressure 100/65 02/19/21 03:37 Pulse Oximetry 97 02/19/21 03:37 MDM - Abdominal Pain MDM Narrative: Medical decision making narrative: Patient here for complaints of chronic abdominal pain and suicidal ideation. Labs showing acute renal failure, hyponatremia, hypokalemia, UTI in which she is currently being treated for. Spoke to hospitalist to admit to [facility]. She will need a sitter. Spoke to Dr. Alexander who will consult on patient while in the hospital. Affidavit on chart. Lab Data: Labs: Lab Results 02/18/21 02/18/21 02/18/21 Range/Units 22:25 22:25 22:35 WBC (4.0-10.0) 10^3/ uL RBC (4.1-5.3) 10^6/u L Hgb (11.5-15.3) g/dL Hct (37.0-47.0) % MCV (81-99) fL MCH (28.0-34.0) pg MCHC (30.0-36.0) g/dL RDW (12.1-15.1) % Plt Count (130-400) 10^3/c mm MPV (7.4-10.4) fL Neut % (Auto) % Lymph % (Auto) % Mellette % (Auto) % Eos % (Auto) % Baso % (Auto) % Neut # (Auto) (1.8-7.7) 10^3/u L Lymph # (Auto) (0.8-4.8) 10^3/u L Mellette # (Auto) (0.2-0.9) 10^3/u L Eos # (Auto) (0.0-0.8) 10^3/u L Baso # (Auto) (0.0-0.1) 10^3/u L Nucleated RBC % (a uto) % Nucleated RBCs # /100WBC Sodium 128 L (136-145) mmol/L Potassium 3.4 L (3.5-5.1) mmol/L Chloride 93 L (98-107) mmol/L Carbon Dioxide 18 L (22-29) mmol/L Anion Gap 20.4 H (5-19) BUN 45 H (6-20) mg/dL Creatinine 4.3 H (0.5-0.9) mg/dL GFR Calculation 11.3 L (90-130) mL/min Glucose 147 H (65-115) mg/dL Calculated Osmolal ity 280 L (285-295) mOsm/k g Calcium 9.7 (8.5-10.5) mg/dL Total Bilirubin 0.5 (0.15-1.2) mg/dL AST 21 (0-32) U/L ALT 16 (0-33) U/L Alkaline Phosphata se 131 H (35-105) IU/L Total Protein 7.4 (6.6-8.7) g/dL Albumin 3.6 (3.5-5.2) g/dL Globulin 3.8 (1.3-4.6) g/dL Lipase 39 (13-60) U/L Urine Color Yellow (Yellow) Urine Appearance Sl cloudy A (CLEAR) Urine pH 5 (5-7) Ur Specific Gravit y 1.025 (1.005-1.030) Urine Protein 3+ H (Negative) Urine Glucose (UA) Norm (Normal) Urine Ketones 1+ H (Negative) Urine Blood Trace H (Negative) Urine Nitrate Negative (Negative) Urine Bilirubin 1+ H (Negative) Urine Urobilinogen 1 H (Negative) mg/dL Ur Leukocyte Estephania ase Negative (Negative) Urine RBC 5-10 H (0-2) /hpf Urine WBC 15-25 H (0-5) /hpf Ur Squamous Epith Cells 25-40 H (0-5) /hpf Amorphous Sediment 3+ /hpf Urine Bacteria 1+ H (NONE) /hpf Hyaline Casts 0-4 H /lpf Salicylates < 0.3 L (3-10) mg/dL Urine Opiates Scre en Positive H (Negative) ng/mL Acetaminophen < 5.0 L (10-30) ug/mL Ur Barbiturates Sc reen Negative (Negative) ng/mL Ur Phencyclidine S crn Negative (Negative) ng/mL Ur Amphetamines Sc reen Negative (Negative) ng/mL U Benzodiazepines Scrn Positive H (Negative) ng/mL Urine Cocaine Scre en Negative (Negative) ng/mL U Marijuana (THC) Screen Negative (Negative) ng/mL Ethyl Alcohol < 10 (0-10) mg/dL 02/18/21 Range/Units 23:11 WBC 10.8 H (4.0-10.0) 10^3/ uL RBC 4.06 L (4.1-5.3) 10^6/u L Hgb 11.5 (11.5-15.3) g/dL Hct 36.9 L (37.0-47.0) % MCV 90.9 (81-99) fL MCH 28.3 (28.0-34.0) pg MCHC 31.2 (30.0-36.0) g/dL RDW 14.6 (12.1-15.1) % Plt Count 369 (130-400) 10^3/c mm MPV 8.8 (7.4-10.4) fL Neut % (Auto) 74.6 % Lymph % (Auto) 15.8 % Mellette % (Auto) 8.1 % Eos % (Auto) 0.4 % Baso % (Auto) 0.5 % Neut # (Auto) 8.09 H (1.8-7.7) 10^3/u L Lymph # (Auto) 1.7 (0.8-4.8) 10^3/u L Mellette # (Auto) 0.9 (0.2-0.9) 10^3/u L Eos # (Auto) 0.0 (0.0-0.8) 10^3/u L Baso # (Auto) 0.1 (0.0-0.1) 10^3/u L Nucleated RBC % (a uto) 0 % Nucleated RBCs # 0.0 /100WBC Sodium (136-145) mmol/L Potassium (3.5-5.1) mmol/L Chloride (98-107) mmol/L Carbon Dioxide (22-29) mmol/L Anion Gap (5-19) BUN (6-20) mg/dL Creatinine (0.5-0.9) mg/dL GFR Calculation (90-130) mL/min Glucose (65-115) mg/dL Calculated Osmolal ity (285-295) mOsm/k g Calcium (8.5-10.5) mg/dL Total Bilirubin (0.15-1.2) mg/dL AST (0-32) U/L ALT (0-33) U/L Alkaline Phosphata se (35-105) IU/L Total Protein (6.6-8.7) g/dL Albumin (3.5-5.2) g/dL Globulin (1.3-4.6) g/dL Lipase (13-60) U/L Urine Color (Yellow) Urine Appearance (CLEAR) Urine pH (5-7) Ur Specific Gravit y (1.005-1.030) Urine Protein (Negative) Urine Glucose (UA) (Normal) Urine Ketones (Negative) Urine Blood (Negative) Urine Nitrate (Negative) Urine Bilirubin (Negative) Urine Urobilinogen (Negative) mg/dL Ur Leukocyte Estephania ase (Negative) Urine RBC (0-2) /hpf Urine WBC (0-5) /hpf Ur Squamous Epith Cells (0-5) /hpf Amorphous Sediment /hpf Urine Bacteria (NONE) /hpf Hyaline Casts /lpf Salicylates (3-10) mg/dL Urine Opiates Scre en (Negative) ng/mL Acetaminophen (10-30) ug/mL Ur Barbiturates Sc reen (Negative) ng/mL Ur Phencyclidine S crn (Negative) ng/mL Ur Amphetamines Sc reen (Negative) ng/mL U Benzodiazepines Scrn (Negative) ng/mL Urine Cocaine Scre en (Negative) ng/mL U Marijuana (THC) Screen (Negative) ng/mL Ethyl Alcohol (0-10) mg/dL Discharge Plan Discharge Patient Disposition: Admitted As Inpatient Admit Provider: Gracia Gonzalez Clinical Impression: Self-harming behavior, Suicidal ideation, Chronic abdominal pain, UTI (urinary tract infection), Acute hyponatremia Acute renal failure Qualifiers: Acute renal failure type: unspecified Qualified Code(s): N17.9 - Acute kidney failure, unspecified Condition: Stable 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 Code ED Mortuary Technician for Chg Fwd Exam Detailed Documented by User: Pablito Perry DO 02/19/21 04:38 HPI - Abdominal Pain General: Chief Complaint: Abdominal Pain Stated Complaint: ABD PAIN Time Seen by Provider: 02/18/21 21:22 PFSH ED PFSH: Medical History Back pain CKD (chronic kidney disease) stage 2, GFR 60-89 ml/min baseline Cr is around 1.0 Coronary artery disease hx of stenting Diabetes mellitus type 1 diagnosed age 15, history of peripheral neuropathy, gastroparesis and nephropathy Diabetic foot ulcer s/p surgical intervention and eventual amputation Diabetic gastroparesis Diabetic ophthalmopathy Foot osteomyelitis, right Gastroparesis Hyperlipidemia Hypertension 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 Nausea & vomiting Non-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 PTSD (post-traumatic stress disorder) Suicidal ideation Toe infection Surgical History Below-knee amputation of left lower extremity H/O esophagogastroduodenoscopy (12/31/20) Bile reflux gastritis, grade B esophagitis H/O exploratory laparotomy x 3 History of amputation of right forefoot Hx of cholecystectomy Previous section x 3 S/P coronary artery stent placement x 1 S/P percutaneous endoscopic gastrostomy (PEG) tube placement Family History Unknown Diabetes extensive, type II Other CHF (congestive heart failure) Social History Smoking and tobacco status: former smoker Quit status (tobacco): has quit using tobacco Former quit date comment: 15 yrs ago Alcohol intake: former Former alcohol use details: 15 yrs ago Household members: spouse Marital status: Sexually active: Yes (1, ) Course Vital Signs: Vital signs: Vital Signs Temperature 98.4 F 02/19/21 03:37 Pulse Rate 68 02/19/21 03:37 Respiratory Rate 15 02/19/21 03:37 Blood Pressure 100/65 02/19/21 03:37 Pulse Oximetry 97 02/19/21 03:37 MDM - Abdominal Pain MDM Narrative: Medical decision making narrative: 40-year-old patient originally seen by Mrs. Ding?SELENA De Oliveira. I agree with her history, evaluation, and treatment. She will be admitted for acute renal on chronic renal failure. She will have a psychiatry consult for suicidal ideation. Lab Data: Labs: Lab Results 02/18/21 02/18/21 02/18/21 Range/Units 22:25 22:25 22:35 WBC (4.0-10.0) 10^3/ uL RBC (4.1-5.3) 10^6/u L Hgb (11.5-15.3) g/dL Hct (37.0-47.0) % MCV (81-99) fL MCH (28.0-34.0) pg MCHC (30.0-36.0) g/dL RDW (12.1-15.1) % Plt Count (130-400) 10^3/c mm MPV (7.4-10.4) fL Neut % (Auto) % Lymph % (Auto) % Mellette % (Auto) % Eos % (Auto) % Baso % (Auto) % Neut # (Auto) (1.8-7.7) 10^3/u L Lymph # (Auto) (0.8-4.8) 10^3/u L Mellette # (Auto) (0.2-0.9) 10^3/u L Eos # (Auto) (0.0-0.8) 10^3/u L Baso # (Auto) (0.0-0.1) 10^3/u L Nucleated RBC % (a uto) % Nucleated RBCs # /100WBC Sodium 128 L (136-145) mmol/L Potassium 3.4 L (3.5-5.1) mmol/L Chloride 93 L (98-107) mmol/L Carbon Dioxide 18 L (22-29) mmol/L Anion Gap 20.4 H (5-19) BUN 45 H (6-20) mg/dL Creatinine 4.3 H (0.5-0.9) mg/dL GFR Calculation 11.3 L (90-130) mL/min Glucose 147 H (65-115) mg/dL Calculated Osmolal ity 280 L (285-295) mOsm/k g Calcium 9.7 (8.5-10.5) mg/dL Total Bilirubin 0.5 (0.15-1.2) mg/dL AST 21 (0-32) U/L ALT 16 (0-33) U/L Alkaline Phosphata se 131 H (35-105) IU/L Total Protein 7.4 (6.6-8.7) g/dL Albumin 3.6 (3.5-5.2) g/dL Globulin 3.8 (1.3-4.6) g/dL Lipase 39 (13-60) U/L Urine Color Yellow (Yellow) Urine Appearance Sl cloudy A (CLEAR) Urine pH 5 (5-7) Ur Specific Gravit y 1.025 (1.005-1.030) Urine Protein 3+ H (Negative) Urine Glucose (UA) Norm (Normal) Urine Ketones 1+ H (Negative) Urine Blood Trace H (Negative) Urine Nitrate Negative (Negative) Urine Bilirubin 1+ H (Negative) Urine Urobilinogen 1 H (Negative) mg/dL Ur Leukocyte Estephania ase Negative (Negative) Urine RBC 5-10 H (0-2) /hpf Urine WBC 15-25 H (0-5) /hpf Ur Squamous Epith Cells 25-40 H (0-5) /hpf Amorphous Sediment 3+ /hpf Urine Bacteria 1+ H (NONE) /hpf Hyaline Casts 0-4 H /lpf Salicylates < 0.3 L (3-10) mg/dL Urine Opiates Scre en Positive H (Negative) ng/mL Acetaminophen < 5.0 L (10-30) ug/mL Ur Barbiturates Sc reen Negative (Negative) ng/mL Ur Phencyclidine S crn Negative (Negative) ng/mL Ur Amphetamines Sc reen Negative (Negative) ng/mL U Benzodiazepines Scrn Positive H (Negative) ng/mL Urine Cocaine Scre en Negative (Negative) ng/mL U Marijuana (THC) Screen Negative (Negative) ng/mL Ethyl Alcohol < 10 (0-10) mg/dL 02/18/21 Range/Units 23:11 WBC 10.8 H (4.0-10.0) 10^3/ uL RBC 4.06 L (4.1-5.3) 10^6/u L Hgb 11.5 (11.5-15.3) g/dL Hct 36.9 L (37.0-47.0) % MCV 90.9 (81-99) fL MCH 28.3 (28.0-34.0) pg MCHC 31.2 (30.0-36.0) g/dL RDW 14.6 (12.1-15.1) % Plt Count 369 (130-400) 10^3/c mm MPV 8.8 (7.4-10.4) fL Neut % (Auto) 74.6 % Lymph % (Auto) 15.8 % Mellette % (Auto) 8.1 % Eos % (Auto) 0.4 % Baso % (Auto) 0.5 % Neut # (Auto) 8.09 H (1.8-7.7) 10^3/u L Lymph # (Auto) 1.7 (0.8-4.8) 10^3/u L Mellette # (Auto) 0.9 (0.2-0.9) 10^3/u L Eos # (Auto) 0.0 (0.0-0.8) 10^3/u L Baso # (Auto) 0.1 (0.0-0.1) 10^3/u L Nucleated RBC % (a uto) 0 % Nucleated RBCs # 0.0 /100WBC Sodium (136-145) mmol/L Potassium (3.5-5.1) mmol/L Chloride (98-107) mmol/L Carbon Dioxide (22-29) mmol/L Anion Gap (5-19) BUN (6-20) mg/dL Creatinine (0.5-0.9) mg/dL GFR Calculation (90-130) mL/min Glucose (65-115) mg/dL Calculated Osmolal ity (285-295) mOsm/k g Calcium (8.5-10.5) mg/dL Total Bilirubin (0.15-1.2) mg/dL AST (0-32) U/L ALT (0-33) U/L Alkaline Phosphata se (35-105) IU/L Total Protein (6.6-8.7) g/dL Albumin (3.5-5.2) g/dL Globulin (1.3-4.6) g/dL Lipase (13-60) U/L Urine Color (Yellow) Urine Appearance (CLEAR) Urine pH (5-7) Ur Specific Gravit y (1.005-1.030) Urine Protein (Negative) Urine Glucose (UA) (Normal) Urine Ketones (Negative) Urine Blood (Negative) Urine Nitrate (Negative) Urine Bilirubin (Negative) Urine Urobilinogen (Negative) mg/dL Ur Leukocyte Estephania ase (Negative) Urine RBC (0-2) /hpf Urine WBC (0-5) /hpf Ur Squamous Epith Cells (0-5) /hpf Amorphous Sediment /hpf Urine Bacteria (NONE) /hpf Hyaline Casts /lpf Salicylates (3-10) mg/dL Urine Opiates Scre en (Negative) ng/mL Acetaminophen (10-30) ug/mL Ur Barbiturates Sc reen (Negative) ng/mL Ur Phencyclidine S crn (Negative) ng/mL Ur Amphetamines Sc reen (Negative) ng/mL U Benzodiazepines Scrn (Negative) ng/mL Urine Cocaine Scre en (Negative) ng/mL U Marijuana (THC) Screen (Negative) ng/mL Ethyl Alcohol (0-10) mg/dL Discharge Plan Discharge Patient Disposition: Admitted As Inpatient Admit Provider: Gracia Gonzalez Clinical Impression: Self-harming behavior, Suicidal ideation, Chronic abdominal pain, UTI (urinary tract infection), Acute hyponatremia Acute renal failure Qualifiers: Acute renal failure type: unspecified Qualified Code(s): N17.9 - Acute kidney failure, unspecified Condition: Stable 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 Code ED Mortuary Technician for mikey Fwd Exam Detailed
[2021-02-18] MEDS: acetaminophen 500 mg Tablet 1000 MG PO (22:13)
[2021-02-18] MEDS: haloperidol inj 5 mg/mL INJ 1 mL IM (22:14)
[2021-02-18] MEDS: ondansetron 2 mg/ML SDV 2 mL 4 MG IM (22:17)
[2021-02-18] MEDS: LORazepam 2 mg/mL INJ 1 mL 1 MG IM (22:48)
[2021-02-18 22:49] LABS: Amphetamines Screen Urine Negative (Negative); Barbiturates Screen Urine Negative (Negative); Benzodiazepines Screen Urine Positive (Negative); Cocaine Screen Urine Negative (Negative); Opiate Screen Urine Positive (Negative); PCP Screen Urine Negative (Negative); THC Screen Urine Negative (Negative)
[2021-02-18 22:55] LABS: Add Urine Microscopic? YES; Bilirubin Urine 1+ (Negative); Blood Urine Trace (Negative); Glucose Urine UA Norm (Normal); Ketones Urine 1+ (Negative); Leukocyte Esterase Urine Negative (Negative); Nitrate Urine Negative (Negative); Protein Urine 3+ (Negative); Specific Gravity, Urine 1.025 (1.005-1.030); Urine Color Yellow (Yellow); Urobilinogen Urine 1 mg/dL (Negative); pH Urine 5 (5-7)
[2021-02-18 22:56] LABS: Squamous Epithelial Cell Urine 25-40 /hpf (0-5); WBC Urine 15-25 /hpf (0-5)
[2021-02-18 22:57] LABS: Add Urine Culture? No; Amorphous Sediment Urine 3+ /hpf; Bacteria Urine 1+ /hpf; Hyaline Casts Urine 0-4 /lpf
[2021-02-18 22:58] LABS: Alanine Aminotransferase 16 U/L (0-33); Albumin Level 3.6 g/dL (3.5-5.2); Alkaline Phosphatase 131 IU/L (35-105); Aspartate Amino Transferase 21 U/L (0-32); Blood Urea Nitrogen 45 mg/dL (6-20); Calcium 9.7 mg/dL (8.5-10.5); Carbon Dioxide 18 mmol/L (22-29); Chloride 93 mmol/L (98-107); Globulin 3.8 g/dL (1.3-4.6); Glomerular Filtration Rate 11.3 mL/min (90-130); Glucose 147 mg/dL (65-115); Lipase 39 U/L (13-60); Osmolality Calculated 280 mOsm/kg (285-295); Sodium 128 mmol/L (136-145); Total Bilirubin 0.5 mg/dL (0.15-1.2); Total Protein 7.4 g/dL (6.6-8.7)
[2021-02-18 23:00] LABS: Acetaminophen < 5.0 ug/mL (10-30); Alcohol Level < 10 mg/dL (0-10); Anion Gap 20.4 (5-19); Potassium 3.4 mmol/L (3.5-5.1); Salicylate < 0.3 mg/dL (3-10)
[2021-02-18 23:24] LABS: Basophils # 0.1 10^3/uL (0.0-0.1); Basophils % 0.5 %; Eosinophils % 0.4 %; Hematocrit 36.9 % (37.0-47.0); Hemoglobin 11.5 g/dL (11.5-15.3); Lymphocytes # 1.7 10^3/uL (0.8-4.8); Lymphocytes % 15.8 %; Mean Corpuscular HGB Conc 31.2 g/dL (30.0-36.0); Mean Corpuscular Hemoglobin 28.3 pg (28.0-34.0); Mean Corpuscular Volume 90.9 fL (81-99); Mean Platelet Volume 8.8 fL (7.4-10.4); Monocytes # 0.9 10^3/uL (0.2-0.9); Monocytes % 8.1 %; Neutrophils # 8.09 10^3/uL (1.8-7.7); Neutrophils % 74.6 %; Nucleated Red Blood Cells % 0 %; Platelet Count 369 10^3/cmm (130-400); Red Blood Count 4.06 10^6/uL (4.1-5.3); Red Cell Distribution Width 14.6 % (12.1-15.1); White Blood Count 10.8 10^3/uL (4.0-10.0)
--- NOTE | 2021-02-18 23:58 | P.HP_ITS ---
Providers/Chief Complaint Primary Care Provider: Angelic Martinez MD Chief Complaint: ABD PAIN History of Present Illness Cherrie Solomon is a 40 year old female who has had multiple admissions secondary to suicidal behavior, resistant depression with multiple comorbid conditions, type 2 diabetes, self inflicted injury of left stump status post fourth right toe amputation at metatarsophalangeal joint on 01/19 secondary to osteomyelitis p resented today with chief complaint of dehydration and worsening abdominal pain. Patient is stating that since her discharge she has been consistently vomiting, she has not been able to increase her p.o. intake. She is denying fever or dysuria. She was discharged on cefdinir for UTI. Her propranolol and meloxicam were discontinued secondary to FIONA. She is also endorsing suicidal ideation stating that she wanted to cut her wrist. Diagnosis in the ER revealed mild leukocytosis she is afebrile, hyponatremia, hypokalemia, FIONA clinically looks dehydrated on 96-hour hold, psychiatrist notified and consulted, in the ER she received acetaminophen, Haldol, lorazepam 1mg, Zofran and 1 L normal saline. Review of Systems Const: Reports: body aches and fatigue; Denies: fever(s) Eyes: Denies: change in vision ENMT: Denies: throat pain Card: Denies: chest pain Resp: Denies: dyspnea GI: Reports: abdominal pain, nausea and vomiting : Denies: flank pain Musc: Reports: joint pain and muscle cramps; Denies: joint swelling or joint stiffness Skin/Breast: Reports: skin pain and new lesions Neuro: Denies: headache(s) Psych: Reports: anxiety, depression, mood swings and suicidal ideation Endo: Denies: polyuria Keith/Lymph: Denies: easy bruising All/Imm: Denies: urticaria Medications/Allergies Home Medications Medication Instructions Recorded Confirmed Last Taken Type insulin lispro See Rx Instructions .ROUTE .COMPLEX 12/13/20 02/14/21 12/21/20 History Lantus Solostar U-100 Insulin 5 unit SUBCUT BEDTIME 12/24/20 02/14/21 02/13/21 History amlodipine 10 mg tablet 10 mg PO DAILY 30 Days #30 tab 01/31/21 02/14/21 02/13/21 Rx carvedilol 12.5 mg tablet 12.5 mg PO BID 30 Days #60 tab 01/31/21 02/14/21 02/13/21 Rx duloxetine 30 mg capsule,delayed 30 mg PO BID 30 Days #60 cap 01/31/21 02/14/21 02/13/21 Rx release gabapentin 300 mg capsule 300 mg PO Q8H #90 cap 01/31/21 02/14/21 02/13/21 Rx pantoprazole 40 mg tablet,delayed 40 mg PO BID #60 tab 01/31/21 02/14/21 02/13/21 Rx release promethazine 25 mg tablet 25 mg PO Q6H PRN #30 tab 01/31/21 02/14/21 Unknown Rx buspirone 15 mg PO BID 02/14/21 02/14/21 02/13/21 History citalopram 20 mg PO DAILY 02/14/21 02/14/21 02/13/21 History cefdinir 300 mg PO BID #10 cap 02/16/21 Unknown Rx cyclobenzaprine 10 mg PO TID PRN #10 tab 02/16/21 Unknown Rx hydrocodone-acetaminophen 1 tab PO Q4H PRN #10 tab 02/16/21 Unknown Rx Allergies Allergy/AdvReac Type Severity Reaction Status Date / Time morphine Allergy ALGY-Difficulty Verified 02/18/21 21:18 Breathing PFSH Acute PFSH: Medical History Back pain CKD (chronic kidney disease) stage 2, GFR 60-89 ml/min baseline Cr is around 1.0 Coronary artery disease hx of stenting Diabetes mellitus type 1 diagnosed age 15, history of peripheral neuropathy, gastroparesis and nephropathy Diabetic foot ulcer s/p surgical intervention and eventual amputation Diabetic gastroparesis Diabetic ophthalmopathy Foot osteomyelitis, right Gastroparesis Hyperlipidemia Hypertension 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 Nausea & vomiting Non-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 PTSD (post-traumatic stress disorder) Suicidal ideation Toe infection Surgical History Below-knee amputation of left lower extremity H/O esophagogastroduodenoscopy (12/31/20) Bile reflux gastritis, grade B esophagitis H/O exploratory laparotomy x 3 History of amputation of right forefoot Hx of cholecystectomy Previous section x 3 S/P coronary artery stent placement x 1 S/P percutaneous endoscopic gastrostomy (PEG) tube placement Family History Unknown Diabetes extensive, type II Other CHF (congestive heart failure) Social History Smoking and tobacco status: former smoker Quit status (tobacco): has quit using tobacco Former quit date comment: 15 yrs ago Alcohol intake: former Former alcohol use details: 15 yrs ago Household members: spouse Marital status: Sexually active: Yes (1, ) Female Reproductive History: Date of last menstrual period: 12/17/20 Vitals/I&O/Wt Last Vital Signs Temp 97.8 F 02/18/21 21:16 Pulse 101 H 02/18/21 21:16 Resp 15 02/18/21 21:16 BP 119/79 02/18/21 21:16 Pulse Ox 100 02/18/21 21:16 Weight last 48 hrs Weight 68.039 kg Physical Exam Narrative: EXAM NARRATIVE: female who was laying supine at the time my evaluation saturating well on room air with normal systolic blood pressure 101 mmHg Pupils equal and reactive to light no neurological deficit NIH 0 EOMI, PERRLA Clinically looks dehydrated S1, S2 sinus rhythm Abdomen soft, no visible swelling, abdominal striae, tenderness right lower quadrant to superficial deep palpation, no active signs of peritonitis Left below-knee amputation stump has a tiny punctate wound with yellow discharge Right foot without any active sign of cellulitis Bilateral breath sounds no audible stridor or wheezing Data : 02/18/21 23:11 02/18/21 22:35 A&P Assessment and plan (1) Acute renal failure: Status: Acute Qualifiers: Acute renal failure type: unspecified Qualified Code(s): N17.9 - Acute kidney failure, unspecified (2) Self-harming behavior: Status: Acute (3) Suicidal ideation: Status: Acute (4) Chronic abdominal pain: Status: Acute (5) Hyponatremia: Status: Acute Additional A&P Information FIONA This seems secondary to dehydration, no active signs of dysuria she has been taking cefdinir at home I will switch her to ceftriaxone for now No signs of sepsis, she is afebrile I will keep her on maintenance fluid rate with normal saline at 75 mL/h Need adjustment of dosages of her antipsychotics and antidepressants secondary t o worsening kidney function Suicidal ideation: 96-hour hold, psych consulted patient is endorsing that she wanted to cut her wrist open, One-to-one supervision Chronic abdominal pain: No active signs of sepsis, previous abdominal CT scan showed umbilical hernia otherwise unremarkable I would not repeat imaging at this point Hypovolemic hyponatremia secondary to vomiting, continue normal saline fluid resuscitation, I would not request hyponatremia work-up Full code Consistent carb diet DVT prophylaxis Heparin Attestations Medical Necessity Statement*: Anticipating stay in the hospital because more than 2 midnights for suicidal ideation, FIONA, dehydration, recurrent nausea vomiting Time Spent in Patient Care: 30mins 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 Code 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
[2021-02-19] VITALS (7 sets, daily range): BP systolic 96–147; BP diastolic 52–76; PULSE 68–95; RESP 15–18; TEMP 36.6–36.9; O2SAT 95–100
[2021-02-19] MEDS: sodium chloride 0.9% 1,000 ML 999 ML IV (00:35)
[2021-02-19] MEDS: heparin 5,000 unit/mL INJ 1 mL 5000 UNIT SUBCUT ×3 (01:53→21:40)
[2021-02-19] MEDS: sodium chloride 0.9% 1,000 ML 75 ML IV ×2 (01:54→18:21)
[2021-02-19 08:26] LABS: Blood Urea Nitrogen 48 mg/dL (6-20); Calcium 8.8 mg/dL (8.5-10.5); Carbon Dioxide 23 mmol/L (22-29); Chloride 96 mmol/L (98-107); Glucose 84 mg/dL (65-115); Osmolality Calculated 294 mOsm/kg (285-295); Sodium 136 mmol/L (136-145)
[2021-02-19 08:39] LABS: Glucose Point of Care 95 mg/dL (70-110)
[2021-02-19] MEDS: pantoprazole DR 40 mg Tablet PO ×2 (10:27→18:23)
[2021-02-19] MEDS: duloxetine 30 mg Capsule PO (10:27)
[2021-02-19] MEDS: amlodipine 10 mg Tablet PO (10:27)
[2021-02-19] MEDS: citalopram 20 mg Tablet PO (10:27)
[2021-02-19] MEDS: cefTRIAXone 1,000 MG in sodium chloride 0.9% (plus) 50 ML 100 MG IV (10:28)
[2021-02-19 11:16] LABS: Glucose Point of Care 143 mg/dL (70-110)
[2021-02-19] MEDS: gabapentin 300 mg Capsule PO (12:12)
--- NOTE | 2021-02-19 12:23 | P.PN_ITS ---
Subjective Subjective: Interval history: Food last night. Sitter at bedside. Lying comfortably in bed. Having few episodes of diarrhea. Has remained hemodynamically stable. Has suicidal ideation. Psychiatry has been consulted. Vitals/I&O/Wt Last Vital Signs Temp 97.8 F 02/19/21 11:02 Pulse 75 02/19/21 11:02 Resp 18 02/19/21 11:02 BP 115/76 02/19/21 11:02 Pulse Ox 100 02/19/21 11:02 02/18/21 02/19/21 02/19/21 22:59 06:59 14:59 Intake Total 0 / 0 1050 / 1050 Balance 0 / 0 1050 / 1050 Weight last 48 hrs Weight 68.039 kg Physical Exam Narrative: EXAM NARRATIVE: female who was laying supine at the time my evaluation saturating well on room air Pupils equal and reactive to light no neurological deficit NIH 0 EOMI, PERRLA Clinically looks dehydrated S1, S2 sinus rhythm Abdomen soft, no visible swelling, abdominal striae, tenderness right lower quadrant to superficial deep palpation, no active signs of peritonitis Left below-knee amputation stump has a tiny punctate wound with yellow discharge Right foot without any active sign of cellulitis Bilateral breath sounds no audible stridor or wheezing Data : 02/18/21 23:11 02/19/21 06:52 A&P Assessment and plan (1) Acute renal failure: Status: Acute Qualifiers: Acute renal failure type: unspecified Qualified Code(s): N17.9 - Acute kidney failure, unspecified (2) Self-harming behavior: Status: Acute (3) Suicidal ideation: Status: Acute (4) Chronic abdominal pain: Status: Acute (5) Hyponatremia: Status: Acute (6) High anion gap metabolic acidosis: Status: Acute (7) CKD (chronic kidney disease) stage 2, GFR 60-89 ml/min: Status: Acute Additional A&P Information FIONA most likely secondary to dehydration, poor oral intake along with home dose of cefdinir. IV hydration with normal saline 75 cc/h. Check urine creatinine, eosinophils, random lites. Continue to monitor strict input output charting. [place] catheterization. Medical reconciliation done for nephrotoxic drugs. Psychiatric medication doses have been changed as per creatinine clearance as well. Gabapentin dose changed to daily because of creatinine clearance. Leukocytosis: Recently admitted because of UTI. Can be secondary to dehydration. Patient having diarrhea. With ongoing antibiotics. Check stool for 3 days. Continue with ceftriaxone till tomorrow to finish a course of IV antibiotics for UTI. Suicidal ideation: 96-hour hold, psych consulted patient is endorsing that she wanted to cut her wrist open, One-to-one supervision Chronic abdominal pain: No active signs of sepsis, previous abdominal CT scan showed umbilical hernia otherwise unremarkable I would not repeat imaging at th is point Hypovolemic hyponatremia: Secondary to vomiting, continue normal saline fluid resuscitation, I would not request hyponatremia work-up High anion gap metabolic acidosis: Secondary to above. Check iron panel, folate level. Full code Consistent carb diet DVT prophylaxis Heparin 5000 every 12. Attestations Medical Necessity Statement*: Patient requires further hospitalization for management of acute kidney injury, suicidal ideation, 96-hour hold Time Spent in Patient Care: Greater than 35 minutes (>than 50% of time spent in counselling and/or direct pt care on unit) . 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
[2021-02-19 13:06] LABS: Potassium, Radom Urine 38 mmol/L; Urine Creatinine 368 mg/dL (28-217); Urine Random Sodium 57 mmol/L
[2021-02-19] MEDS: HYDROcodone-acetaminophen 5-325 mg Tablet 1 TAB PO ×2 (13:06→22:29)
[2021-02-19 13:08] LABS: Urine Random Chloride 14 mmol/L
--- NOTE | 2021-02-19 13:27 | PM.PSYCN ---
Providers/Reason for Consult Consulting Physican/Specialty*: Alex Alexander DO Reason for Consult*: Chronic, passive suicidal ideation Attending Physician: Jose A Moore MD Primary Care Provider: Angelic Martinez MD Psych Consult HPI History of Present Illness Cherrie Solomon is a 40 year old female with chronic pain, history of noncompliance, poorly controlled type 1 diabetes with amputations, multiple acute and chronic medical stressors and financial stressors with longstanding chronic, passive suicidal ideation with frequent episodes of acting out behavior related to her perceived pain control. Patient has had multiple presentations to the emergency department since last consultation 4 weeks ago under similar circumstances in which the patient presented to the emergency department reporting abdominal pain as well as suicidal ideation stating that she had been making superficial cuts on her wrists until her had taken the knife away from her. Once again, patient states that she has suicidal thoughts when she feels like she is in more pain and that there is nothing that she can do about her pain or her situation. She denies any active intent or plan of harming herself. She reports that she had recently been approved for health insurance and hopes that this allows her to pursue outpatient mental health follow-up to include therapy. She continues to deny any sustained depressive symptoms but continues to state that she has feelings of dysphoria and irritability about her ongoing medical issues but chiefly concerned about her ongoing pain. Patient states that she only has problems when she is experiencing pain and denies any interval depressive symptoms or mood symptoms when her pain is controlled. Patient states that she has a strong mago in God and has no desire to end her life but feels frustrated about her lack of pain control. Psychiatric review of systems is otherwise negative. Review of Systems General: Reports: 10 or more systems reviewed and unremarkable except in HPI and below Meds Current Medications: Current Medications Generic Name Dose Route Start Last Admin Trade Name Freq PRN Reason Stop Dose Admin Hydrocodone Bitart /Acetaminophen 1 tab 02/19/21 11:45 02/19/21 13:06 Hydrocodone-Acet aminophen 5-325 Mg Tablet PO 1 tab Q8H PRN Administration Moderate To Sever e Pain Amlodipine Besylat e 10 mg 02/19/21 09:00 02/19/21 10:27 Amlodipine 10 Mg Tablet PO 10 mg DAILY DAWSON Administration Citalopram Hydrobr omide 20 mg 02/19/21 09:00 02/19/21 10:27 Citalopram 20 Mg Tablet PO 20 mg DAILY DAWSON Administration Duloxetine HCl 30 mg 02/19/21 09:00 02/19/21 10:27 Duloxetine 30 Mg Capsule PO 30 mg DAILY DAWSON Administration Ceftriaxone Sodium 1,000 mg/ 50 mls @ 100 mls/ hr 02/19/21 09:00 02/19/21 11:20 Sodium Chloride IV 02/20/21 08:59 Infused DAILY DAWSON Infusion Protocol Sodium Chloride 1,000 mls @ 75 ml s/hr 02/19/21 01:15 02/19/21 01:54 Sodium Chloride 0.9% IV 75 mls/hr .[id number] DAWSON Administration Insulin Aspart 0 unit 02/19/21 08:00 02/19/21 12:12 Insulin Aspart 1 00 Unit/1 Ml SUBCUT 2 unit WM&BEDTIME DAWSON Administration Protocol Pantoprazole Sodiu m 40 mg 02/19/21 09:00 02/19/21 10:[address] 40 Mg Tablet PO 40 mg BID DAWSON Administration PFSH NPU PFSH: Medical History Back pain CKD (chronic kidney disease) stage 2, GFR 60-89 ml/min baseline Cr is around 1.0 Coronary artery disease hx of stenting Diabetes mellitus type 1 diagnosed age 15, history of peripheral neuropathy, gastroparesis and nephropathy Diabetic foot ulcer s/p surgical intervention and eventual amputation Diabetic gastroparesis Diabetic ophthalmopathy Foot osteomyelitis, right Gastroparesis Hyperlipidemia Hypertension 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 Nausea & vomiting Non-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 PTSD (post-traumatic stress disorder) Suicidal ideation Toe infection Surgical History Below-knee amputation of left lower extremity H/O esophagogastroduodenoscopy (12/31/20) Bile reflux gastritis, grade B esophagitis H/O exploratory laparotomy x 3 History of amputation of right forefoot Hx of cholecystectomy Previous section x 3 S/P coronary artery stent placement x 1 S/P percutaneous endoscopic gastrostomy (PEG) tube placement Family History Unknown Diabetes extensive, type II Other CHF (congestive heart failure) Social History Smoking and tobacco status: former smoker Quit status (tobacco): has quit using tobacco Former quit date comment: 15 yrs ago Alcohol intake: former Former alcohol use details: 15 yrs ago Household members: spouse Marital status: Sexually active: Yes (1, ) Other Psychiatric History: Other Psychiatric History: Please refer to consultation performed by this interviewer on 01/21/2021. No interval changes, patient continues to report noncompliance with outpatient medication management and therapy follow-up. Continues to report intermittent self harming behavior of scratching and superficial cutting in the context of acute pain episodes. Mental Status Exam MSE Comments: Sitting up on her bed, alert, good eye contact, wearing hospital gown, sitter at bedside Psychomotor activity is neither increased nor decreased, no agitation Okay, constricted affect, not labile Alert, oriented to person, place, time, situation Memory and concentration appear to be fair to intact based on interview Thought process, linear, goal-directed, organized, no flight of ideas, no looseness of associations Thought content, no delusions, no hallucinations, does not appear to be attending to any internal stimuli, no suicidal or homicidal ideation Insight and judgment appear to be fair to intact Vitals/I&O/Wt Last Vital Signs Temp 97.8 F 02/19/21 11:02 Pulse 75 02/19/21 11:02 Resp 18 02/19/21 11:02 BP 115/76 02/19/21 11:02 Pulse Ox 100 02/19/21 11:02 02/18/21 02/19/21 02/19/21 22:59 06:59 14:59 Intake Total 0 / 0 1050 / 1050 Balance 0 / 0 1050 / 1050 Weight last 48 hrs Weight 68.039 kg Data NPU Micro: Micro: Microbiology 02/19/21 12:20 Stool Lactoferrin - Final Stool Occult Blood (FIT) - Final Microbiology 02/19/21 12:20 Stool Stool Lactoferrin - Final 02/19/21 12:20 Stool Occult Blood (FIT) - Final A&P Assessment and plan (1) Depression: Status: Acute Qualifiers: Depression Type: unspecified Qualified Code(s): F32.9 - Major depressive disorder, single episode, unspecified (2) Self-harming behavior: Status: Acute (3) Chronic pain syndrome: Status: Acute Additional A&P Information As previously outlined in psychiatric consultations and progress notes, patient has longstanding history of chronic, passive suicidal ideation and remote history of self harming behavior in the context of frustration since adolescence. Ms. Solomon has a history of noncompliance, poorly controlled type 1 diabetes with amputations, multiple acute and chronic medical stressors and financial stressors presenting to the emergency department on multiple occasions with ongoing abdominal pain with self harming behavior in the context of uncontrolled pain. Patient self harming behavior and suicidal ideation continue to be exclusively contingent on pain control. She continues to deny any depressive symptoms or suicidal ideation during interval periods without pain continues to deny any medication side effects on her current regimen of citalopram 20 mg and duloxetine 30 mg twice daily as well as augmentation with buspirone 15 mg twice daily. There are no medication interventions that would be necessitate acute inpatient psychiatric care. Low to moderate risk of harm to self given chronic, passive suicidal ideation with no active intent or plan and ongoing help seeking behavior of returning to the emergency department although patient's risk may be elevated if she continues to perceive her pain as being uncontrolled leading to unexpected, impulsive behavior. Risk mitigation includes outpatient pain management given that her behaviors and intermittent suicidal ideation are exclusively tied to her complaint of uncontrolled pain as well as current medication management with psychiatric medication to target any mood or depressive symptoms and outpatient counseling/therapy to target patient's ability to deal with chronic pain and ongoing life/medical stressors. Patient was able to communicate her understanding and also agrees with plan that she needs consistent outpatient pain management in addition to counseling targeting her ability to cope with chronic pain in order to further mitigate her risk of harm to self. RECOMMEND outpatient pain management. RECOMMEND outpatient psychotropic medication management and therapy targeting development of adaptive coping strategies related to ongoing life and medical stressors. Inpatient psychiatric hospitalization is not indicated per above given no acute medication changes would further mitigate her risk; outpatient therapy targeting more adaptive coping strategies are the least restrictive and appropriate level of care at this time. Involuntary Hold Information 96 Hour Hold: 96 Hour Involuntary Admission: No Attestations NPU Medical Necessity Statement*: Once medically stabilized, outpatient psychiatric medication management and therapy of the least restrictive and appropriate level of care at this time. Time Spent in Patient Care: Greater than 35 minutes (>than 50% of time spent in counselling and/or direct pt care on unit). 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
[2021-02-19 13:53] LABS: Eosinophil Urine No Eosinophils Seen; Urine Eosinophil Count 0 (0-0)
[2021-02-19 14:19] LABS: Ferritin 228 ng/mL (15-150); Iron 19 ug/dL (37-145); Percent Saturation 6.7 % (20-50); Total Iron Binding Capacity 283 mcg/dl; Unsaturated Iron Binding 264 ug/dL (112-347)
[2021-02-19 15:41] LABS: Folate Level 4.2 ng/mL (4.8-37.3)
[2021-02-19] MEDS: folic acid 1 mg Tablet PO (18:23)
[2021-02-19] MEDS: ferrous gluconate 324 mg Tablet PO (18:23)
[2021-02-19 20:30] LABS: Glucose Point of Care 163 mg/dL (70-110)
[2021-02-20] VITALS (7 sets, daily range): BP systolic 106–146; BP diastolic 67–80; PULSE 70–77; RESP 16–18; TEMP 36.4–36.9; O2SAT 99–100
[2021-02-20] MEDS: sodium chloride 0.9% 1,000 ML 75 ML IV ×2 (07:57→22:30)
[2021-02-20] MEDS: pantoprazole DR 40 mg Tablet PO ×2 (07:59→17:13)
[2021-02-20] MEDS: folic acid 1 mg Tablet PO ×2 (07:59→17:13)
[2021-02-20] MEDS: duloxetine 30 mg Capsule PO (07:59)
[2021-02-20] MEDS: ferrous gluconate 324 mg Tablet PO ×2 (07:59→17:13)
[2021-02-20] MEDS: heparin 5,000 unit/mL INJ 1 mL 5000 UNIT SUBCUT ×2 (07:59→22:34)
[2021-02-20] MEDS: gabapentin 300 mg Capsule PO (07:59)
[2021-02-20] MEDS: amlodipine 10 mg Tablet PO (07:59)
[2021-02-20] MEDS: citalopram 20 mg Tablet PO (07:59)
[2021-02-20] MEDS: HYDROcodone-acetaminophen 5-325 mg Tablet 1 TAB PO ×2 (08:08→17:13)
[2021-02-20 08:16] LABS: Glucose Point of Care 202 mg/dL (70-110)
[2021-02-20] MEDS: cyanocobalamin 1,000 mcg Tablet 1000 MCG PO (10:23)
[2021-02-20 11:13] LABS: Basophils % 0.8 %; Eosinophils # 0.2 10^3/uL (0.0-0.8); Eosinophils % 3.3 %; Hematocrit 30.3 % (37.0-47.0); Hemoglobin 9.7 g/dL (11.5-15.3); Lymphocytes # 1.3 10^3/uL (0.8-4.8); Lymphocytes % 27.5 %; Mean Corpuscular Hemoglobin 28.3 pg (28.0-34.0); Mean Corpuscular Volume 88.3 fL (81-99); Mean Platelet Volume 9.1 fL (7.4-10.4); Monocytes # 0.4 10^3/uL (0.2-0.9); Monocytes % 7.9 %; Neutrophils # 2.88 10^3/uL (1.8-7.7); Neutrophils % 59.7 %; Nucleated Red Blood Cells % 0 %; Platelet Count 296 10^3/cmm (130-400); Red Blood Count 3.43 10^6/uL (4.1-5.3); Red Cell Distribution Width 14.6 % (12.1-15.1); White Blood Count 4.8 10^3/uL (4.0-10.0)
[2021-02-20 11:18] LABS: Glucose Point of Care 158 mg/dL (70-110)
[2021-02-20 11:37] LABS: Alanine Aminotransferase 11 U/L (0-33); Albumin Level 3.2 g/dL (3.5-5.2); Alkaline Phosphatase 98 IU/L (35-105); Aspartate Amino Transferase 16 U/L (0-32); Blood Urea Nitrogen 37 mg/dL (6-20); Calcium 8.3 mg/dL (8.5-10.5); Carbon Dioxide 24 mmol/L (22-29); Chloride 98 mmol/L (98-107); Globulin 2.7 g/dL (1.3-4.6); Glomerular Filtration Rate 27.3 mL/min (90-130); Glucose 119 mg/dL (65-115); Osmolality Calculated 282 mOsm/kg (285-295); Sodium 131 mmol/L (136-145); Total Bilirubin 0.2 mg/dL (0.15-1.2); Total Protein 5.9 g/dL (6.6-8.7)
[2021-02-20 11:39] LABS: Anion Gap 12.9 (5-19); Potassium 3.9 mmol/L (3.5-5.1)
--- NOTE | 2021-02-20 12:21 | PM.PN ---
Subjective Subjective: Interval history: Patient was seen and examined this morning, continues to complain of generalized abdominal as well as back pain, this is something not new she has a history of chronic pain syndrome. Her vitals and labs have been reviewed. Medications: Reviewed: Yes Vitals/I&O/Wt Last Vital Signs Temp 97.9 F 02/20/21 11:22 Pulse 76 02/20/21 11:22 Resp 18 02/20/21 11:22 BP 118/75 02/20/21 11:22 Pulse Ox 99 02/20/21 11:22 02/19/21 02/20/21 02/20/21 22:59 06:59 14:59 Intake Total 1960 / 3490 1600 / 1600 Output Total 150 / 400 475 / 875 Balance 1810 / 3090 -475 / 2615 1600 / 1600 Weight last 48 hrs Weight 68.039 kg Physical Exam Const: COMMON NORMALS: patient oriented x3 HENMT: COMMON NORMALS: normocephalic and atraumatic HEAD & SCALP: normocephalic and atraumatic Chest: CHEST: Yes Symmetrical chest wall rise Resp: COMMON NORMALS: clear to auscultation bilaterally EFFORT & INSPECTION: Yes symmetric chest movement AUSCULTATION: clear to auscultation bilaterally Cardio: COMMON NORMALS: regular rate, regular rhythm, S1 normal heart sound present, S2 normal heart sound present, No gallops present (Cardio), No murmurs present (Cardio), No rub (Cardio) and Peripheral pulses 2+ throughout RATE: regular rate RHYTHM: regular rhythm HEART SOUNDS: S1 normal heart sound present and S2 normal heart sound present PERIPHERAL PULSES: Peripheral pulses 2+ throughout GI: COMMON NORMALS: Normal to inspection, nondistended, normoactive bowel sounds present, Soft to palpation, non-tender, No hepatosplenomegaly present and no masses AUSCULTATION: Yes normoactive bowel sounds PALPATION: Yes Soft to palpation and Yes No hepatosplenomegaly present RECTAL EXAM: deferred Extremity: COMMON NORMALS: no clubbing, cyanosis or edema and no pedal edema Neuro: COMMON NORMALS: patient oriented x3 Urinary Catheter Management^: Riojas: Cath Placed During This Visit: yes Reason for Continuing Indwelling Catheter: Accurate Measurement of Urinary Output in Critically Ill Patients Urinary Catheter Date of Insertion: 02/19/21 Urinary Catheter Time of Insertion: 12:00 Data : 02/20/21 10:54 02/20/21 10:54 Micro: Microbiology 02/19/21 12:20 Stool Lactoferrin - Final Stool C.difficile Toxin B Gene (PCR) - Final Occult Blood (FIT) - Final A&P Assessment and plan (1) Acute renal failure: Status: Acute Qualifiers: Acute renal failure type: unspecified Qualified Code(s): N17.9 - Acute kidney failure, unspecified (2) Self-harming behavior: Status: Acute (3) Suicidal ideation: Status: Acute (4) Chronic abdominal pain: Status: Acute (5) Hyponatremia: Status: Acute (6) High anion gap metabolic acidosis: Status: Acute (7) CKD (chronic kidney disease) stage 2, GFR 60-89 ml/min: Status: Acute (8) C. difficile diarrhea: Status: Acute Additional A&P Information FIONA most likely secondary to dehydration, poor oral intake along with home dose of cefdinir. IV hydration with normal saline 75 cc/h. Check urine creatinine, eosinophils, random lites. Continue to monitor strict input output charting. Riojas catheterization. Medical reconciliation done for nephrotoxic drugs. Psychiatric medication doses have been changed as per creatinine clearance as well. Gabapentin dose changed to daily because of creatinine clearance. Leukocytosis: Recently admitted because of UTI. Can be secondary to dehydration. Patient having diarrhea. With ongoing antibiotics. Check stool for 3 days. Continue with ceftriaxone till tomorrow to finish a course of IV antibiotics for UTI. C. difficile diarrhea: On p.o. vancomycin Suicidal ideation: 96-hour hold, psych consulted patient is endorsing that she wanted to cut her wrist open, One-to-one supervision Chronic abdominal pain: No active signs of sepsis, previous abdominal CT scan showed umbilical hernia otherwise unremarkable I would not repeat imaging at this point Hypovolemic hyponatremia: Secondary to vomiting, continue normal saline fluid resuscitation, I would not request hyponatremia work-up High anion gap metabolic acidosis: Secondary to above. Check iron panel, folate level. Full code Consistent carb diet DVT prophylaxis Heparin 5000 every 12. Attestations Medical Necessity Statement*: Patient is to the hospital for management of FIONA. 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 Code Acute Duct Layer Supervisor for Kim Mitchell Diagnoses Acute renal failure N17.9 Acute renal failure type: unspecified Self-harming behavior Suicidal ideation R45.851 Chronic abdominal pain R10.9; G89.29 Hyponatremia E87.1 High anion gap metabolic acidosis E87.2 CKD (chronic kidney disease) stage 2, GFR 60-89 ml/min N18.2 C. difficile diarrhea A04.72
[2021-02-20 17:11] LABS: Glucose Point of Care 181 mg/dL (70-110)
[2021-02-20] MEDS: ondansetron 2 mg/ML SDV 2 mL 4 MG IVP (17:15)
[2021-02-20 21:08] LABS: Glucose Point of Care 157 mg/dL (70-110)
[2021-02-21 04:00] VITALS: BP 144/85; PULSE 74; RESP 18; TEMP 36.8; O2SAT 99
[2021-02-21] MEDS: HYDROcodone-acetaminophen 5-325 mg Tablet 1 TAB PO (04:12)
[2021-02-21] MEDS: ondansetron 2 mg/ML SDV 2 mL 4 MG IVP (04:13)
[2021-02-21 07:49] VITALS: BP 127/77; PULSE 71; RESP 16; TEMP 36.7; O2SAT 98
[2021-02-21] MEDS: ferrous gluconate 324 mg Tablet PO (08:56)
[2021-02-21] MEDS: duloxetine 30 mg Capsule PO (08:56)
[2021-02-21] MEDS: citalopram 20 mg Tablet PO (08:56)
[2021-02-21] MEDS: heparin 5,000 unit/mL INJ 1 mL 5000 UNIT SUBCUT (08:57)
[2021-02-21] MEDS: cyanocobalamin 1,000 mcg Tablet 1000 MCG PO (08:57)
[2021-02-21] MEDS: folic acid 1 mg Tablet PO (08:57)
[2021-02-21] MEDS: amlodipine 10 mg Tablet PO (08:57)
[2021-02-21] MEDS: gabapentin 300 mg Capsule PO (08:57)
[2021-02-21] MEDS: pantoprazole DR 40 mg Tablet PO (08:57)
[2021-02-21 09:12] LABS: Glucose Point of Care 157 mg/dL (70-110)
[2021-02-21 09:13] LABS: Glucose Point of Care 172 mg/dL (70-110)
[2021-02-21 10:24] LABS: Basophils % 0.7 %; Eosinophils # 0.2 10^3/uL (0.0-0.8); Eosinophils % 3.9 %; Hematocrit 31.9 % (37.0-47.0); Hemoglobin 10.1 g/dL (11.5-15.3); Lymphocytes # 1.4 10^3/uL (0.8-4.8); Lymphocytes % 26.3 %; Mean Corpuscular HGB Conc 31.7 g/dL (30.0-36.0); Mean Corpuscular Hemoglobin 28.2 pg (28.0-34.0); Mean Corpuscular Volume 89.1 fL (81-99); Mean Platelet Volume 8.9 fL (7.4-10.4); Monocytes # 0.4 10^3/uL (0.2-0.9); Monocytes % 6.6 %; Neutrophils # 3.36 10^3/uL (1.8-7.7); Neutrophils % 61.9 %; Nucleated Red Blood Cells % 0 %; Platelet Count 381 10^3/cmm (130-400); Red Blood Count 3.58 10^6/uL (4.1-5.3); Red Cell Distribution Width 14.5 % (12.1-15.1); White Blood Count 5.4 10^3/uL (4.0-10.0)
[2021-02-21 10:37] LABS: Homocysteine 41.43
[2021-02-21 10:38] LABS: Anion Gap 14.7 (5-19); Blood Urea Nitrogen 20 mg/dL (6-20); Calcium 8.4 mg/dL (8.5-10.5); Carbon Dioxide 23 mmol/L (22-29); Chloride 101 mmol/L (98-107); Glomerular Filtration Rate 41.2 mL/min (90-130); Glucose 191 mg/dL (65-115); Osmolality Calculated 288 mOsm/kg (285-295); Potassium 3.7 mmol/L (3.5-5.1); Sodium 135 mmol/L (136-145)
--- NOTE | 2021-02-21 11:53 | PM.DCS ---
Discharge Providers Date of Admission: 02/19/21 00:17 Date of Discharge: February 21, 2021 Attending Provider at Admission: Gracia Gonzalez MD Attending Provider at Discharge: Prosper Perry MD Primary Care Provider: Angelic Martinez MD Diagnoses at Discharge Discharge Diagnosis (1) Acute renal failure: Qualifiers: Acute renal failure type: unspecified Qualified Code(s): N17.9 - Acute kidney failure, unspecified (2) Self-harming behavior: (3) Suicidal ideation: (4) Chronic abdominal pain: (5) Hyponatremia: (6) High anion gap metabolic acidosis: (7) CKD (chronic kidney disease) stage 2, GFR 60-89 ml/min: Permanent problem details: baseline Cr is around 1.0 (8) C. 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 intake. She is denied fever or dysuria. She was also endorsing suicidal ideation stating that she wanted to cut her wrist. Diagnosis in the ER revealed mild leukocytosis she is afebrile, hyponatremia, hypokalemia, FIONA clinically looks dehydrated on 96-hour hold, psychiatrist notified and consulted.She was admitted for the management of FIONA 2/2 to severe dehydration she responded well to I.V hydration at the time of discharge SCR was trending close to her baseline SCR.She was also managed for UTI and completed rochepin course,she was also managed for c.diff diarrhea and was discahrged on PO vancomycin to complete 7 days course.Patient was seen by and was cleared for discharge 96 hr hold was removed and she will follow psychiatry as outpatient.Patient responded well to the above medical management and si being discharged in stable condition. Physical Exam Const: COMMON NORMALS: patient oriented x3 HENMT: COMMON NORMALS: normocephalic and atraumatic HEAD & SCALP: normocephalic and atraumatic Resp: COMMON NORMALS: clear to auscultation bilaterally AUSCULTATION: clear to auscultation bilaterally Cardio: COMMON NORMALS: regular rate, regular rhythm, S1 normal heart sound present, S2 normal heart sound present, No gallops present (Cardio), No murmurs present (Cardio), No rub (Cardio) and Peripheral pulses 2+ throughout RATE: regular rate RHYTHM: regular rhythm HEART SOUNDS: S1 normal heart sound present and S2 normal heart sound present PERIPHERAL PULSES: Peripheral pulses 2+ throughout GI: COMMON NORMALS: Normal to inspection, nondistended, normoactive bowel sounds present, Soft to palpation, non-tender, No hepatosplenomegaly present and no masses AUSCULTATION: Yes normoactive bowel sounds PALPATION: Yes Soft to palpation and Yes No hepatosplenomegaly present RECTAL EXAM: deferred Extremity: NARRATIVE EXTREMITY EXAM: Left bka Neuro: COMMON NORMALS: patient oriented x3 Urinary Catheter Management^: Riojas: Cath Placed During This Visit: yes Reason for Continuing Indwelling Catheter: Accurate Measurement of Urinary Output in Critically Ill Patients Urinary Catheter Date of Insertion: 02/19/21 Urinary Catheter Time of Insertion: 12:00 Discharge Data Data Completed and Pending: Pending at discharge Category Date Time Status Basic Metabolic P gia AM LABS Lab 02/22/21 04:00 Ordered Basic Metabolic P gia AM LABS Lab 02/23/21 04:00 Ordered Complete Blood Co unt w/Auto AM LABS Lab 02/22/21 04:00 Ordered Complete Blood Co unt w/Auto AM LABS Lab 02/23/21 04:00 Ordered Methylmalonic Aci d Routine Lab 02/21/21 09:58 Received Labs from last 24 hours 02/21/21 02/21/21 02/21/21 09:58 09:58 09:58 WBC RBC Hgb Hct MCV MCH MCHC RDW Plt Count MPV Neut % (Auto) Lymph % (Auto) Ralls % (Auto) Eos % (Auto) Baso % (Auto) Neut # (Auto) Lymph # (Auto) Ralls # (Auto) Eos # (Auto) Baso # (Auto) Nucleated RBC % (a uto) Nucleated RBCs # Sodium 135 L Potassium 3.7 Chloride 101 Carbon Dioxide 23 Anion Gap 14.7 BUN 20 Creatinine 1.4 H GFR Calculation 41.2 L Glucose 191 H POC Glucose Calculated Osmolal ity 288 Calcium 8.4 L Methylmalonic Acid Pending Homocysteine 41.43 02/21/21 02/21/21 02/21/21 09:58 09:03 06:06 WBC 5.4 RBC 3.58 L Hgb 10.1 L Hct 31.9 L MCV 89.1 MCH 28.2 MCHC 31.7 RDW 14.5 Plt Count 381 MPV 8.9 Neut % (Auto) 61.9 Lymph % (Auto) 26.3 Ralls % (Auto) 6.6 Eos % (Auto) 3.9 Baso % (Auto) 0.7 Neut # (Auto) 3.36 Lymph # (Auto) 1.4 Ralls # (Auto) 0.4 Eos # (Auto) 0.2 Baso # (Auto) 0.0 Nucleated RBC % (a uto) 0 Nucleated RBCs # 0.0 Sodium Potassium Chloride Carbon Dioxide Anion Gap BUN Creatinine GFR Calculation Glucose POC Glucose 172 H 157 H Calculated Osmolal ity Calcium Methylmalonic Acid Homocysteine 02/20/21 02/20/21 20:43 17:06 WBC RBC Hgb Hct MCV MCH MCHC RDW Plt Count MPV Neut % (Auto) Lymph % (Auto) Ralls % (Auto) Eos % (Auto) Baso % (Auto) Neut # (Auto) Lymph # (Auto) Ralls # (Auto) Eos # (Auto) Baso # (Auto) Nucleated RBC % (a uto) Nucleated RBCs # Sodium Potassium Chloride Carbon Dioxide Anion Gap BUN Creatinine GFR Calculation Glucose POC Glucose 157 H 181 H Calculated Osmolal ity Calcium Methylmalonic Acid Homocysteine Vitals: Last Vital Signs Temp 98.0 F 02/21/21 07:49 Pulse 71 02/21/21 07:49 Resp 16 02/21/21 07:49 BP 127/77 02/21/21 07:49 Pulse Ox 98 02/21/21 07:49 Discharge Plan Discharge Patient Disposition: Home Condition: Stable Prescriptions: New vancomycin 125 mg capsule 125 mg PO Q6H 7 Days Qty: 28 RF: 0 Continued Lantus Solostar U-100 Insulin 100 unit/mL (3 mL) insulin pen 5 unit SUBCUT BEDTIME RF: 0 citalopram 20 mg Tablet 20 mg PO DAILY RF: 0 buspirone 15 mg Tablet 15 mg PO BID RF: 0 insulin lispro 100 unit/mL Insulin Pen See Rx Instructions .ROUTE .COMPLEX RF: 0 cyclobenzaprine 10 mg tablet 10 mg PO TID PRN (Reason: MUSCLE SPASMS) RF: 0 carvedilol 12.5 mg tablet 12.5 mg PO BID RF: 0 hydrocodone-acetaminophen 5-325 mg tablet 1 tab PO Q4H PRN (Reason: Pain) RF: 0 amlodipine 10 mg tablet 10 mg PO DAILY RF: 0 pantoprazole 40 mg tablet,delayed release (DR/EC) 40 mg PO DAILY RF: 0 promethazine 25 mg tablet 25 mg PO DAILY PRN (Reason: Nausea) RF: 0 propranolol 20 mg tablet 20 mg PO TID RF: 0 Changed gabapentin 300 mg Capsule 300 mg PO DAILY Qty: 0 RF: 0 duloxetine 30 mg capsule,delayed release(DR/EC) 30 mg PO DAILY Qty: 0 RF: 0 Discontinued doxycycline hyclate 100 mg tablet 100 mg PO BID RF: 0 No Action ketorolac 10 mg tablet 10 mg PO TID PRN (Reason: pain) Qty: 7 RF: 0 levofloxacin 500 mg tablet 500 mg PO DAILY 7 Days Qty: 7 RF: 0 Discharge Orders: Discharge Order (Routine); Ordered 02/21/21 Ordered By: Prosper Perry Referrals: Angelic Martinez MD [Primary Care Provider] - 03/07/21 10:15 am Discharge Diet: Diabetic Discharge Activity: Resume usual activity Patient Instructions: Clostridium Difficile, Vancomycin (By mouth), Opioid Safety, Suicidal Ideation Discharge Attestations Time Spent in Discharge Care*: less than 30 min Specific Discharge Activities: educating patient, educating and/or supporting family/caregiver, discussing with outpatient case manager/social workers/dc planners, documenting/other paperwork and evaluating patient/reviewing data Status at Discharge: Cognitive status at discharge: cognitively intact, Behavioral status at discharge: cooperative, Quality Metrics Clinical Quality Measures During this hospital stay, did patient experience: None 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 Code Acute Chg FW DC note Exam Detailed Diagnoses Acute renal failure N17.9 Acute renal failure type: unspecified Self-harming behavior Suicidal ideation R45.851 Chronic abdominal pain R10.9; G89.29 Hyponatremia E87.1 High anion gap metabolic acidosis E87.2 CKD (chronic kidney disease) stage 2, GFR 60-89 ml/min N18.2 C. difficile diarrhea A04.72
[2021-02-21 12:00] VITALS: BP 133/86; PULSE 79; RESP 16; TEMP 36.7; O2SAT 100
[2021-02-21 12:23] LABS: Glucose Point of Care 164 mg/dL (70-110)
[2021-02-21 12:54] VITALS: BP 133/86; PULSE 79; RESP 16; TEMP 36.7; O2SAT 100
[2021-02-24 16:32] LABS: Methylmalonic Acid 364 nmol/L (87-318)
== END 2021-02-21 14:59 | disposition home or self-care (01) | DRG 683 ==
LOC: ER 02-19 00:14 → MEDSURG 02-19 00:17
PROVIDERS: Student in an Organized Health Care Education/Training Program; Admitting Provider Internal Medicine; Emergency Provider Physician Assistant; PCP Family Medicine; Visit Provider Internal Medicine
DX: N17.9 Acute kidney failure, unspecified (principal); R45.851 Suicidal ideations; N39.0 Urinary tract infection, site not specified; E87.1 Hypo-osmolality and hyponatremia; A04.72 Enterocolitis due to Clostridium difficile, not specified as recurrent; E87.2 Acidosis; F32.9 Major depressive disorder, single episode, unspecified; E10.22 Type 1 diabetes mellitus with diabetic chronic kidney disease; I12.9 Hypertensive chronic kidney disease with stage 1 through stage 4 chronic kidney disease, or unspecified chronic kidney disease; N18.2 Chronic kidney disease, stage 2 (mild); E10.39 Type 1 diabetes mellitus with other diabetic ophthalmic complication; E86.0 Dehydration; E87.6 Hypokalemia; M54.9 Dorsalgia, unspecified; I25.10 Atherosclerotic heart disease of native coronary artery without angina pectoris; Z95.5 Presence of coronary angioplasty implant and graft; Z89.512 Acquired absence of left leg below knee; Z89.431 Acquired absence of right foot; E78.5 Hyperlipidemia, unspecified; F43.10 Post-traumatic stress disorder, unspecified; Z87.891 Personal history of nicotine dependence; Z72.89 Other problems related to lifestyle; Z79.891 Long term (current) use of opiate analgesic; Z79.4 Long term (current) use of insulin; G89.4 Chronic pain syndrome; K42.9 Umbilical hernia without obstruction or gangrene
CPT/HCPCS: 36415; 36416; 51702; 80048; 80053; 80306; 80307; 81001; 82274; 82436; 82570; 82728; 82746; 82962; 83090; 83540; 83550; 83630; 83690; 83921; 84133; 84300; 85025; 85999; 87493; 87506; 96361; 96372; 96374; 99285; J0696; J1630; J1644; J1815; J2060; J2405; J3370; J7030

== ENCOUNTER 2021-02-26 03:39 | Emergency (ER) | payer MEDICAID, SELFPAY ==
[2021-02-26 03:50] VITALS: BP 140/97; PULSE 118; RESP 22; TEMP 37.6; O2SAT 99; BMI 28.0
--- NOTE | 2021-02-26 04:17 | PC.NURSE ---
Urine and blood sent to lab.
--- NOTE | 2021-02-26 04:39 | ED_ITS ---
HPI - Back Pain/Injury General: Chief Complaint: Back Pain/Injury Stated Complaint: SELF HARM Time Seen by Provider: 02/26/21 03:58 History of Present Illness: HPI Narrative: 40-year-old female well-known to the ER. She presents right-sided flank pain which is chronic. She says that the pain is been back a couple of days. She has not had any fever. She not had any other urinary symptoms. She has had nausea, and states she has vomited 3 times in the last 24 hours. There is also complaint of self-harm. Evidently the patient is braided her right thigh several times. She states she has done this to distract herself from the pain. She does not complain of suicidal ideation MD elicited complaint: back pain Onset (ago): day(s) Timing: constant Severity: similar to previous episodes Similar Symptoms Previously: Yes Quality: sharp and stabbing Location: right flank Radiation: abdomen and groin Relieving factors: none Context: unknown Associated symptoms: Reports abdominal pain, nausea and vomiting; Deny fever(s), hematuria, tingling/numbness/burning or urinary urgency Review of Systems Const: Denies: fever(s) Eyes: Denies: change in vision Card: Denies: chest pain or palpitations Resp: Denies: dyspnea, productive cough, non-productive cough or wheezing GI: Reports: abdominal pain, nausea and vomiting : Denies: urinary urgency or hematuria Musc: Reports: back pain Skin/Breast: Denies: rash Neuro: Denies: headache(s), dizziness or vertigo Psych: Denies: anxiety PFSH ED PFSH: Medical History Back pain CKD (chronic kidney disease) stage 2, GFR 60-89 ml/min baseline Cr is around 1.0 Coronary artery disease hx of stenting Diabetes mellitus type 1 diagnosed age 15, history of peripheral neuropathy, gastroparesis and nephropathy Diabetic foot ulcer s/p surgical intervention and eventual amputation Diabetic gastroparesis Diabetic ophthalmopathy Foot osteomyelitis, right Gastroparesis Hyperlipidemia Hypertension 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 Nausea & vomiting Non-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 PTSD (post-traumatic stress disorder) Suicidal ideation Toe infection Surgical History Below-knee amputation of left lower extremity H/O esophagogastroduodenoscopy (12/31/20) Bile reflux gastritis, grade B esophagitis H/O exploratory laparotomy x 3 History of amputation of right forefoot Hx of cholecystectomy Previous section x 3 S/P coronary artery stent placement x 1 S/P percutaneous endoscopic gastrostomy (PEG) tube placement Family History Unknown Diabetes extensive, type II Other CHF (congestive heart failure) Social History Smoking and tobacco status: former smoker Quit status (tobacco): has quit using tobacco Former quit date comment: 15 yrs ago Alcohol intake: former Former alcohol use details: 15 yrs ago Household members: spouse Marital status: Sexually active: Yes (1, ) Female Reproductive History: Date of last menstrual period: 12/17/20 Physical Exam Const: GENERAL APPEARANCE: cooperative and in distress ORIENTATION/CONSCIOUSNESS: Yes oriented to person, Yes oriented to place and Yes oriented to time HENMT: COMMON NORMALS: normocephalic, external ears normal and Normal external nose present HEAD & SCALP: normocephalic FACE & SINUS: normal facial exam NOSE: Normal external nose present and No nasal discharge present EXTERNAL EAR: Yes external ears normal Eye: COMMON NORMALS: Equal, round and reactive pupils present, EOMs intact bilaterally and conjunctivae normal EYELID: eyelids normal CONJUNCTIVA: Yes conjunctivae normal PUPIL: Yes Equal, round and reactive pupils present Neck/C-Spine: GENERAL: No tracheal deviation Chest: COMMONS NORMALS: normal inspection of the chest Resp: COMMON NORMALS: clear to auscultation bilaterally EFFORT & INSPECTION: No tachypneic, No respiratory distress, No retractions, No uses accessory muscles and No tracheal deviation AUSCULTATION: clear to auscultation bilaterally, no rhonchi, no wheezes and lung sounds not diminished Cardio: COMMON NORMALS: regular rate and regular rhythm RATE: regular rate RHYTHM: regular rhythm HEART SOUNDS: no murmurs PERIPHERAL PULSES: radial pulses present GI: INSPECTION: No abdominal distension AUSCULTATION: No Hyperactive bowel sounds present and No Hypoactive bowel sounds present PALPATION: No Guarding due to palpation present (GI) and No Rigid due to palpation PERCUSSION: no dullness to percussion and no tympanic to percussion : BLADDER/KIDNEY EXAM: Yes CVA tenderness on the right Back/Pelvis: GENERAL BACK: Yes CVA tenderness Neuro: SENSORIUM/ORIENTATION: Yes oriented to person, Yes oriented to place and Yes oriented to time Psych: COMMON NORMALS: mental status grossly normal Skin: COMMON NORMALS: no rashes or lesions noted GENERAL SKIN EXAM: no rashes or lesions noted Course Consultations: Consultation #1: Catherine Time: 06:07 Consultation #2: Juan Time: 06:37 Vital Signs: Vital signs: Vital Signs Temperature 99.6 F 02/26/21 03:50 Pulse Rate 118 H 02/26/21 03:50 Respiratory Rate 22 H 02/26/21 03:50 Blood Pressure 140/97 02/26/21 03:50 Pulse Oximetry 99 02/26/21 03:50 MDM - Back Pain/Injury MDM Narrative: Medical decision making narrative: 40-year-old female presenting with right flank pain. She does have a urinary tract infection on urinalysis. She is afebrile. Her white blood cell count is 9.8. Hemoglobin is stable. Creatinine is improved. Pain is improved after 5 of IM Haldol, and 30 of IM Toradol. She is requesting narcotic pain medication. This is a normal request for this patient. She made statements that she would harm or kill herself., Because she is in so much pain, if she did not get pain medication. I spoke with psychiatry. We do not have a female bed available at this facility. Psychiatrist on-call feeling is that this is a behavioral plan for pain medication, and she is low risk to complete suicide. Our telepsychiatry physician is interviewing the patient currently. After interviewing the patient, I spoke with our psychiatrist. Patient psychiatrist, telepsychiatry, and I are in agreement. The patient's self-harm gestures meaning the abrasions to her right thigh, are very superficial, and most likely an attempt to sway healthcare staff to bend to her will. The patient was given haloperidol and Toradol for pain as above, and was found to be resting comfortably prior to telepsychiatry interview. Clearly her pain is manageable without narcotics, although pain management input would be greatly appreciated given the repeated trips to the emergency department this patient has taken due to this chronic pain issue. Acutely, she does have a urinary tract infection, which we will treat with antibiotics. As she is low risk for completion of suicide, she will be allowed discharge. Lab Data: Labs: Lab Results 02/26/21 02/26/21 02/26/21 Range/Units 04:05 04:05 04:05 WBC 9.8 (4.0-10.0) 10^3/ uL RBC 3.72 L (4.1-5.3) 10^6/u L Hgb 10.5 L (11.5-15.3) g/dL Hct 33.0 L (37.0-47.0) % MCV 88.7 (81-99) fL MCH 28.2 (28.0-34.0) pg MCHC 31.8 (30.0-36.0) g/dL RDW 14.6 (12.1-15.1) % Plt Count 507 H (130-400) 10^3/c mm MPV 8.7 (7.4-10.4) fL Neut % (Auto) 79.3 % Lymph % (Auto) 11.8 % [place] % (Auto) 6.5 % Eos % (Auto) 1.3 % Baso % (Auto) 0.5 % Neut # (Auto) 7.77 H (1.8-7.7) 10^3/u L Lymph # (Auto) 1.2 (0.8-4.8) 10^3/u L [place] # (Auto) 0.6 (0.2-0.9) 10^3/u L Eos # (Auto) 0.1 (0.0-0.8) 10^3/u L Baso # (Auto) 0.1 (0.0-0.1) 10^3/u L Nucleated RBC % (a uto) 0 % Nucleated RBCs # 0.0 /100WBC Sodium 136 (136-145) mmol/L Potassium 3.8 (3.5-5.1) mmol/L Chloride 98 (98-107) mmol/L Carbon Dioxide 24 (22-29) mmol/L Anion Gap 17.8 (5-19) BUN 11 (6-20) mg/dL Creatinine 1.3 H (0.5-0.9) mg/dL GFR Calculation 44.9 L (90-130) mL/min Glucose 179 H (65-115) mg/dL Calculated Osmolal ity 286 (285-295) mOsm/k g Calcium 9.4 (8.5-10.5) mg/dL Total Bilirubin 0.3 (0.15-1.2) mg/dL AST 26 (0-32) U/L ALT 28 (0-33) U/L Alkaline Phosphata se 140 H (35-105) IU/L C-Reactive Protein (0.0-4.9) mg/L Total Protein 7.2 (6.6-8.7) g/dL Albumin 3.8 (3.5-5.2) g/dL Globulin 3.4 (1.3-4.6) g/dL HCG, Qual Negative (Negative) Urine Color (Yellow) Urine Appearance (CLEAR) Urine pH (5-7) Ur Specific Gravit y (1.005-1.030) Urine Protein (Negative) Urine Glucose (UA) (Normal) Urine Ketones (Negative) Urine Blood (Negative) Urine Nitrate (Negative) Urine Bilirubin (Negative) Urine Urobilinogen (Negative) mg/dL Ur Leukocyte Estephania ase (Negative) Urine RBC (0-2) /hpf Urine WBC (0-5) /hpf Ur Squamous Epith Cells (0-5) /hpf Amorphous Sediment Urine Bacteria (NONE) /hpf Salicylates < 0.3 L (3-10) mg/dL Urine Opiates Scre en (Negative) ng/mL Acetaminophen < 5.0 L (10-30) ug/mL Ur Barbiturates Sc reen (Negative) ng/mL Ur Phencyclidine S crn (Negative) ng/mL Ur Amphetamines Sc reen (Negative) ng/mL U Benzodiazepines Scrn (Negative) ng/mL Urine Cocaine Scre en (Negative) ng/mL U Marijuana (THC) Screen (Negative) ng/mL Ethyl Alcohol < 10 (0-10) mg/dL 02/26/21 02/26/21 02/26/21 Range/Units 04:05 04:05 04:05 WBC (4.0-10.0) 10^3/ uL RBC (4.1-5.3) 10^6/u L Hgb (11.5-15.3) g/dL Hct (37.0-47.0) % MCV (81-99) fL MCH (28.0-34.0) pg MCHC (30.0-36.0) g/dL RDW (12.1-15.1) % Plt Count (130-400) 10^3/c mm MPV (7.4-10.4) fL Neut % (Auto) % Lymph % (Auto) % [place] % (Auto) % Eos % (Auto) % Baso % (Auto) % Neut # (Auto) (1.8-7.7) 10^3/u L Lymph # (Auto) (0.8-4.8) 10^3/u L [place] # (Auto) (0.2-0.9) 10^3/u L Eos # (Auto) (0.0-0.8) 10^3/u L Baso # (Auto) (0.0-0.1) 10^3/u L Nucleated RBC % (a uto) % Nucleated RBCs # /100WBC Sodium (136-145) mmol/L Potassium (3.5-5.1) mmol/L Chloride (98-107) mmol/L Carbon Dioxide (22-29) mmol/L Anion Gap (5-19) BUN (6-20) mg/dL Creatinine (0.5-0.9) mg/dL GFR Calculation (90-130) mL/min Glucose (65-115) mg/dL Calculated Osmolal ity (285-295) mOsm/k g Calcium (8.5-10.5) mg/dL Total Bilirubin (0.15-1.2) mg/dL AST (0-32) U/L ALT (0-33) U/L Alkaline Phosphata se (35-105) IU/L C-Reactive Protein 5.9 H (0.0-4.9) mg/L Total Protein (6.6-8.7) g/dL Albumin (3.5-5.2) g/dL Globulin (1.3-4.6) g/dL HCG, Qual (Negative) Urine Color Straw (Yellow) Urine Appearance Hazy A (CLEAR) Urine pH 6.5 (5-7) Ur Specific Gravit y 1.015 (1.005-1.030) Urine Protein 3+ H (Negative) Urine Glucose (UA) 4+ H (Normal) Urine Ketones Negative (Negative) Urine Blood 2+ H (Negative) Urine Nitrate Negative (Negative) Urine Bilirubin Neg (Negative) Urine Urobilinogen Norm (Negative) mg/dL Ur Leukocyte Estephania ase 2+ H (Negative) Urine RBC 0-4 H (0-2) /hpf Urine WBC 25-40 H (0-5) /hpf Ur Squamous Epith Cells 15-25 H (0-5) /hpf Amorphous Sediment Not Reportable Urine Bacteria 1+ H (NONE) /hpf Salicylates (3-10) mg/dL Urine Opiates Scre en Positive H (Negative) ng/mL Acetaminophen (10-30) ug/mL Ur Barbiturates Sc reen Negative (Negative) ng/mL Ur Phencyclidine S crn Negative (Negative) ng/mL Ur Amphetamines Sc reen Negative (Negative) ng/mL U Benzodiazepines Scrn Negative (Negative) ng/mL Urine Cocaine Scre en Negative (Negative) ng/mL U Marijuana (THC) Screen Positive H (Negative) ng/mL Ethyl Alcohol (0-10) mg/dL Discharge Plan Discharge Patient Disposition: Home Clinical Impression: Renal colic UTI (urinary tract infection) Qualifiers: Urinary tract infection type: acute cystitis Hematuria presence: without hematuria Qualified Code(s): N30.00 - Acute cystitis without hematuria Condition: Stable Prescriptions: New ketorolac 10 mg tablet 10 mg PO TID PRN (Reason: pain) Qty: 7 RF: 0 levofloxacin 500 mg tablet 500 mg PO DAILY 7 Days Qty: 7 RF: 0 No Action Lantus Solostar U-100 Insulin 100 unit/mL (3 mL) insulin pen 5 unit SUBCUT BEDTIME RF: 0 citalopram 20 mg Tablet 20 mg PO DAILY RF: 0 buspirone 15 mg Tablet 15 mg PO BID RF: 0 insulin lispro 100 unit/mL Insulin Pen See Rx Instructions .ROUTE .COMPLEX RF: 0 cyclobenzaprine 10 mg tablet 10 mg PO TID PRN (Reason: MUSCLE SPASMS) RF: 0 carvedilol 12.5 mg tablet 12.5 mg PO BID RF: 0 hydrocodone-acetaminophen 5-325 mg tablet 1 tab PO Q4H PRN (Reason: Pain) RF: 0 amlodipine 10 mg tablet 10 mg PO DAILY RF: 0 pantoprazole 40 mg tablet,delayed release (DR/EC) 40 mg PO DAILY RF: 0 promethazine 25 mg tablet 25 mg PO DAILY PRN (Reason: Nausea) RF: 0 propranolol 20 mg tablet 20 mg PO TID RF: 0 gabapentin 300 mg Capsule 300 mg PO DAILY Qty: 0 RF: 0 duloxetine 30 mg capsule,delayed release(DR/EC) 30 mg PO DAILY Qty: 0 RF: 0 vancomycin 125 mg capsule 125 mg PO Q6H 7 Days Qty: 28 RF: 0 Discharge Orders: Discharge ED (Routine); Ordered 02/26/21 Ordered By: Pablito Perry Referrals: Angelic Martinez MD [Primary Care Provider] - 1-3 days Patient Instructions: Urinary Tract Infection in Women (ED), Abdominal Pain (ED), Opioid Safety Activity Restrictions/Additional Instructions: Return for fever greater than 100, vomiting liquids or medications, other concerning symptoms. We are not able to prescribe narcotics for chronic pain conditions at this time. 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 Code ED Supervisor Yard for Kim Fwd Exam Comprehensive
[2021-02-26 04:49] LABS: Basophils # 0.1 10^3/uL (0.0-0.1); Basophils % 0.5 %; Eosinophils # 0.1 10^3/uL (0.0-0.8); Eosinophils % 1.3 %; Hemoglobin 10.5 g/dL (11.5-15.3); Lymphocytes # 1.2 10^3/uL (0.8-4.8); Lymphocytes % 11.8 %; Mean Corpuscular HGB Conc 31.8 g/dL (30.0-36.0); Mean Corpuscular Hemoglobin 28.2 pg (28.0-34.0); Mean Corpuscular Volume 88.7 fL (81-99); Mean Platelet Volume 8.7 fL (7.4-10.4); Monocytes # 0.6 10^3/uL (0.2-0.9); Monocytes % 6.5 %; Neutrophils # 7.77 10^3/uL (1.8-7.7); Neutrophils % 79.3 %; Nucleated Red Blood Cells % 0 %; Platelet Count 507 10^3/cmm (130-400); Red Blood Count 3.72 10^6/uL (4.1-5.3); Red Cell Distribution Width 14.6 % (12.1-15.1); White Blood Count 9.8 10^3/uL (4.0-10.0)
[2021-02-26] MEDS: ketorolac 30 mg/mL INJ IM (04:54)
[2021-02-26 04:55] LABS: HCG Qualitative Urine. Negative (Negative)
[2021-02-26] MEDS: haloperidol inj 5 mg/mL INJ 1 mL IM (04:56)
[2021-02-26 05:03] LABS: Alanine Aminotransferase 28 U/L (0-33); Albumin Level 3.8 g/dL (3.5-5.2); Alkaline Phosphatase 140 IU/L (35-105); Aspartate Amino Transferase 26 U/L (0-32); Blood Urea Nitrogen 11 mg/dL (6-20); Calcium 9.4 mg/dL (8.5-10.5); Carbon Dioxide 24 mmol/L (22-29); Chloride 98 mmol/L (98-107); Globulin 3.4 g/dL (1.3-4.6); Glomerular Filtration Rate 44.9 mL/min (90-130); Glucose 179 mg/dL (65-115); Osmolality Calculated 286 mOsm/kg (285-295); Sodium 136 mmol/L (136-145); Total Bilirubin 0.3 mg/dL (0.15-1.2); Total Protein 7.2 g/dL (6.6-8.7)
[2021-02-26 05:05] LABS: Acetaminophen < 5.0 ug/mL (10-30); Alcohol Level < 10 mg/dL (0-10); Anion Gap 17.8 (5-19); Salicylate < 0.3 mg/dL (3-10)
[2021-02-26 05:06] LABS: Potassium 3.8 mmol/L (3.5-5.1)
--- NOTE | 2021-02-26 05:07 | PC.NURSE ---
Pt less anxious after medication administration. Sitter outside room.
--- NOTE | 2021-02-26 05:18 | PC.NURSE ---
Pt sitting on floor, refusing to get back in bed.
[2021-02-26 05:19] LABS: Add Urine Microscopic? YES; Bilirubin Urine Neg (Negative); Blood Urine 2+ (Negative); Glucose Urine UA 4+ (Normal); Ketones Urine Negative (Negative); Leukocyte Esterase Urine 2+ (Negative); Nitrate Urine Negative (Negative); Protein Urine 3+ (Negative); Specific Gravity, Urine 1.015 (1.005-1.030); Urine Appearance Hazy (CLEAR); Urine Color Straw (Yellow); Urobilinogen Urine Norm (Negative); pH Urine 6.5 (5-7)
--- NOTE | 2021-02-26 05:22 | PC.NURSE ---
Pt placed on contact precautions d/t recent dx of c.diff. Pt continues to sit on the floor and refuses to get in the bed.
[2021-02-26 05:28] LABS: Amphetamines Screen Urine Negative (Negative); Barbiturates Screen Urine Negative (Negative); Benzodiazepines Screen Urine Negative (Negative); Cocaine Screen Urine Negative (Negative); Opiate Screen Urine Positive (Negative); PCP Screen Urine Negative (Negative); THC Screen Urine Positive (Negative)
[2021-02-26 05:33] LABS: Add Urine Culture? No; Bacteria Urine 1+ /hpf; RBC Urine 0-4 /hpf (0-2); Squamous Epithelial Cell Urine 15-25 /hpf (0-5); WBC Urine 25-40 /hpf (0-5)
[2021-02-26 05:44] LABS: C Reactive Protein 5.9 mg/L (0.0-4.9)
--- NOTE | 2021-02-26 06:38 | PC.NURSE ---
On telepsych with Dr. Martinez.
[2021-02-26] MEDS: levoFLOXacin 500 mg Tablet PO (07:38)
[2021-02-26 07:44] VITALS: RESP 15; O2SAT 97
== END 2021-02-26 07:45 | disposition home or self-care (01) ==
PROVIDERS: Emergency Provider Emergency Medicine; PCP Family Medicine
DX: N30.00 Acute cystitis without hematuria (principal); Z79.4 Long term (current) use of insulin; E10.22 Type 1 diabetes mellitus with diabetic chronic kidney disease; I12.9 Hypertensive chronic kidney disease with stage 1 through stage 4 chronic kidney disease, or unspecified chronic kidney disease; N18.2 Chronic kidney disease, stage 2 (mild); I25.10 Atherosclerotic heart disease of native coronary artery without angina pectoris; E78.5 Hyperlipidemia, unspecified; Z89.512 Acquired absence of left leg below knee; Z87.891 Personal history of nicotine dependence
CPT/HCPCS: 80053; 80306; 80307; 81001; 81025; 85025; 86140; 96372; 99284; J1630; J1885

== ENCOUNTER → 2021-07-03 11:00 | Outpatient (BNVA) | payer MEDICAID, SELFPAY | PROVIDERS: PCP Family Medicine; Visit Provider Family Medicine | DX: E10.65 Type 1 diabetes mellitus with hyperglycemia (principal); I10 Essential (primary) hypertension; J44.9 Chronic obstructive pulmonary disease, unspecified | CPT/HCPCS: 80053; 80061; 83036; 85025 ==

== ENCOUNTER → 2021-07-21 16:47 | Outpatient (BNVA) | payer MEDICAID, SELFPAY | PROVIDERS: PCP Family Medicine; Visit Provider Emergency Medicine | DX: R31.9 Hematuria, unspecified; N39.0 Urinary tract infection, site not specified | CPT/HCPCS: 81000 ==

== ENCOUNTER 2021-08-29 10:55 | Inpatient (IN) | payer MEDICAID, SELFPAY ==
[2021-08-29 11:07] VITALS: BP 181/151; PULSE 114; RESP 18; O2SAT 98
--- NOTE | 2021-08-29 11:14 | CT_ITS ---
WS: [id number] CT head wo con* [id number] REASON FOR EXAM: bruise/ams IV CONTRAST ADMINISTERED: Noncontrast TOTAL EXAM DLP: 1329.[address] scans at [facility] use at least one of these dose optimization techniques: automat ed exposure control; mA and/or kV adjustment per patient size (includes targeted exams where dose is matched to clinical indication); or iterative reconstruction. FINDINGS: Base of the skull and the bony calvarium are intact. Zygomatic arches and bony sinuses are intact. Nasal bones are intact. No midline shift or other significant mass effect. No findings of intracranial hemorrhage and no extra-axial fluid collection. No focal brain parenchymal abnormality. Normal ventricles and CSF spaces. CT/CT head wo con* [id number] IMPRESSION: No acute intracranial abnormality.
--- NOTE | 2021-08-29 11:14 | CT_ITS ---
WS: [id number] CT ABDOMEN PELVIS TECHNIQUE: Noncontrast CT of the abdomen and pelvis with coronal and sagittal reformatted images. CLINICAL INFORMATION: bruises multiple on abd, self infected trauma COMPARISON: CT February 14, 2021 DLP: 1460.[address] scans at [facility] use at least one of these dose optimization techniques: automated e xposure control; mA and/or kV adjustment per patient size (includes targeted exams where dose is matc hed to clinical indication); or iterative reconstruction. FINDINGS: Lung bases are well aerated. Noncontrast liver is normal. Mild hepatomegaly. Cholecystectomy clips. S mall esophageal hiatal hernia. Noncontrast spleen is normal. Normal caliber abdominal aorta. Adrenal glands are normal. No hydronephrosis in either kidney. Urine distended bladder. No free fluid in the abdomen or pelvis. No evidence of small or large bowel obstruction. Normal subcutaneous abdominal soft tissues. No drainable abscess or fluid collection. CT/CT abdomen pelvis wo con [id number] IMPRESSION: 1. No acute abdominal or pelvic findings. 2. Fat-containing umbilical hernia unchanged. No herniated bowel. 3. A few sigmoid diverticuli. No evidence of acute diverticulitis. 4. Prior cholecystectomy. 5. Small esophageal hiatal hernia.
[2021-08-29] MEDS: haloperidol inj 5 mg/mL INJ 1 mL IM (11:25)
[2021-08-29] MEDS: LORazepam 2 mg/mL INJ 1 mL IM (11:25)
[2021-08-29] MEDS: diphenhydrAMINE 50 mg/mL SDV 1mL IM (11:25)
--- NOTE | 2021-08-29 11:32 | ED_ITS ---
HPI - General Adult General: Chief complaint: Psychiatric Symptoms Stated complaint: SELF HARM COMBATIVE Time Seen by Provider: 08/29/21 11:08 History of Present Illness: HPI narrative: HPI: [41]yo patient w/ hx of depression BIBA for suicidal ideation. Patient was found banging her head against the wall. EMS gave patient 250mg of IM ketamine to calm her down and stop self-harm/ On arrival, the patient is AAOx3 and cooperative with my evaluation. No focal complaints of chest pain, shortness of breath, palpitations, N/V, focal GI/ complaints. Denies HI currently. No complaints of hallucinations. Onset: acute Duration: ongoing Location: home Severity: severe Associated symptoms: Deny chest pain, dyspnea, nausea, rash, palpitations or vomiting Review of Systems Const: Denies: fever(s) or chills Eyes: Denies: change in vision ENMT: Denies: mouth pain Card: Denies: chest pain or palpitations Resp: Denies: dyspnea or non-productive cough GI: Denies: abdominal pain, nausea, vomiting or diarrhea : Denies: dysuria Musc: Denies: extremity pain Skin/Breast: Denies: rash or new lesions Neuro: Denies: weakness in extremities Psych: Reports: other (Normal mood) Keith/Lymph: Denies: easy bruising PFSH ED PFSH: Medical History Acute hyponatremia Acute renal failure Back pain C. 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 Nausea & vomiting Non-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 PTSD (post-traumatic stress disorder) Self-harming behavior Self-harming behavior Suicidal ideation Suicidal ideation Toe infection UTI (urinary tract infection) Surgical History Below-knee amputation of left lower extremity H/O esophagogastroduodenoscopy (12/31/20) Bile reflux gastritis, grade B esophagitis H/O exploratory laparotomy x 3 History of amputation of right forefoot Hx of cholecystectomy Previous section x 3 S/P coronary artery stent placement x 1 S/P percutaneous endoscopic gastrostomy (PEG) tube placement Family History Unknown Diabetes extensive, type II Other CHF (congestive heart failure) Social History Smoking and tobacco status: current every day smoker Quit status (tobacco): has quit using tobacco Former quit date comment: 15 yrs ago Alcohol intake: former Former alcohol use details: 15 yrs ago Household members: spouse Marital status: Sexually active: Yes (1, ) Female Reproductive History: Date of last menstrual period: 12/17/20 Spontaneous abortions: No Physical Exam Const: COMMON NORMALS: alert HENMT: HEAD & SCALP: other (bruises over the anterior forehead) MOUTH: moist mucous membranes not abnormal Eye: COMMON NORMALS: EOMs intact bilaterally and conjunctivae normal CONJUNCTIVA: Yes conjunctivae normal Neck/C-Spine: COMMON NORMALS: full ROM and supple Resp: COMMON NORMALS: normal respiratory effort and clear to auscultation bilaterally AUSCULTATION: clear to auscultation bilaterally Cardio: COMMON NORMALS: regular rate RATE: regular rate GI: COMMON NORMALS: Soft to palpation and non-tender (non tender to pael[pation) PALPATION: Yes Soft to palpation Extremity: COMMON NORMALS: full ROM Neuro: SENSORIUM/ORIENTATION: Yes alert MOTOR EXAM: No Abnormal motor strength present and Other motor observations present (no focla motor deficits) Psych: COMMON NORMALS: speech normal SPEECH: Yes normal speech MOOD & AFFECT: Yes euthymic mood Skin: NARRATIVE SKIN EXAM: Bruise/abrasion over the anterior forehead Multiple healing bruises over the abdomen Course Vital Signs: Vital signs: Vital Signs Pulse Rate 114 H 08/29/21 11:07 Respiratory Rate 18 08/29/21 11:07 Blood Pressure 181/151 08/29/21 11:07 Pulse Oximetry 98 08/29/21 11:07 MDM - General Adult MDM Narrative: Medical decision making narrative: [41]yo patient presenting for SI and self-harm. HDS, exam within normal limit Thoughts are linear and organized, and the patient has no AH/VH, or HI. Clinically the patient displays no overt toxidrome; they are well appearing, with low suspicion for toxic ingestion given history and exam. Symptoms unlikely 2/2 anemia, hypothyroidism, infection, or ICH. Workup: CBC, CMP, Lipase, salicylate/tylenol, UDS, preg, CT head/CT abd, TSH/free T4 Lab findings: wnl, CT negative for any acute findings. Cr of 1.5, will rehydrate in the ER with PO fluids [12:30pm] On reassessment, labs and workup wnl. Patient is hemodynamically stable with no acute medical complaints. Case discussed with psychiatric provider Dr. Martinez at [facility] psych inpatient with recommendation for admission Disposition: Psych Lab Data: Labs: Lab Results 08/29/21 08/29/21 08/29/21 12:34 12:34 12:34 WBC 15.7 10^3/uL H 10 ^3/uL (4.0-10.0) RBC 3.38 10^6/uL L 10 ^6/uL (4.1-5.3) Hgb 8.8 g/dL L g/dL (11.5-15.3) Hct 28.3 % L % (37.0-47.0) MCV 83.7 fl fl (81-99) MCH 26.0 pg L pg (28.0-34.0) MCHC 31.1 g/dL g/dL (30.0-36.0) RDW 15.3 % H % (12.1-15.1) Plt Count 529 10^3/cmm H 10 ^3/cmm (130-400) MPV 8.4 fL fL (7.4-10.4) Neut % (Auto) 82.6 % % Lymph % (Auto) 8.1 % % Bradley % (Auto) 8.3 % % Eos % (Auto) 0.1 % % Baso % (Auto) 0.3 % % Neut # (Auto) 12.99 10^3/uL H 1 0^3/uL (1.8-7.7) Lymph # (Auto) 1.3 10^3/uL 10^3/ uL (0.8-4.8) Bradley # (Auto) 1.3 10^3/uL H 10^ 3/uL (0.2-0.9) Eos # (Auto) 0.0 10^3/uL 10^3/ uL (0.0-0.8) Baso # (Auto) 0.1 10^3/uL 10^3/ uL (0.0-0.1) Nucleated RBC % (a uto) 0 % % Nucleated RBCs # 0.0 /100WBC /100W BC Sodium 131 mmol/L L mmol /L (136-145) Potassium 4.1 mmol/L mmol/L (3.5-5.1) Chloride 92 mmol/L L mmol/ L (98-107) Carbon Dioxide 20 mmol/L L mmol/ L (22-29) Anion Gap 23.1 H (5-19) BUN 28 mg/dL H mg/dL (6-20) Creatinine 1.5 mg/dL H mg/dL (0.5-0.9) GFR Calculation 37.9 mL/min L mL/ min (90-130) Glucose 257 mg/dL H mg/dL (65-115) Calculated Osmolal ity 286 mOsm/kg mOsm/ kg (285-295) Calcium 9.8 mg/dL mg/dL (8.5-10.5) TSH 0.88 uIU/mL uIU/m L (0.27-4.20) Free T4 1.59 ng/dL ng/dL (0.82-1.77) HCG, Qual Negative (Negative) Salicylates < 0.3 mg/dL L mg/ dL (3-10) Acetaminophen < 5.0 ug/mL L ug/ mL (10-30) Imaging Data^: Other Imaging: Radiologist's impression: Critique^[address] [id number] Scan ReportSigned Patient: Dayan Solomon #: [id number]: 1980Acct#:[id number] ge/Sex: 41 / FADM Date: 08/29/21Loc: ERRoom/Bed:Attending Dr: Ordering Provider/Ordering MD: John Sams MD Date of Service: 08/29/21 Procedure(s): CT abdomen pelvis [facility] [id number] Accession Number(s): [id number] Report Number: [id number] WS: [id number] CT ABDOMEN PELVIS TECHNIQUE: Noncontrast CT of the abdomen and pelvis with coronal and sagittal reformatted images. CLINICAL INFORMATION: bruises multiple on abd, self infected trauma COMPARISON: CT February 14, 2021 DLP: 1460.[address] scans at [facility] use at least one of these dose optimization techniques: automated exposure control; mA and/or kV adjustment per patient size (includes targeted exams where dose is matched to clinical indication); or iterative reconstruction. FINDINGS: Lung bases are well aerated. Noncontrast liver is normal. Mild hepatomegaly. Cholecystectomy clips. Small esophageal hiatal hernia. Noncontrast spleen is normal. Normal caliber abdominal aorta. Adrenal glands are normal. No hydronephrosis in either kidney. Urine distended bladder. No free fluid in the abdomen or pelvis. No evidence of small or large bowel obstruction. Normal subcutaneous abdominal soft tissues. No drainable abscess or fluid collection. CT/CT abdomen pelvis wo con [id number] IMPRESSION: 1. No acute abdominal or pelvic findings. 2. Fat-containing umbilical hernia unchanged. No herniated bowel. 3. A few sigmoid diverticuli. No evidence of acute diverticulitis. 4. Prior cholecystectomy. 5. Small esophageal hiatal hernia. Dictated By:Luis Crabtree MDSigned By:Luis Crabtree MDSigned Date/Time:08/29/21 1350DD/ [address] [address]Y[place] Scan ReportSigned Patient: Dayan Solomon #: [id number]: 1980Acct#:[id number]/Sex: 41 / FADM Date: 08/29/21Loc: ERRoom/Bed:Attending Dr: Ordering Provider/Ordering MD: John Sams MD Date of Service: 08/29/21 Procedure(s): CT head wo con* [id number] Accession Number(s): [id number] Report Number: [id number] WS: [id number] CT head wo con* [id number] REASON FOR EXAM: bruise/ams IV CONTRAST ADMINISTERED: Noncontrast TOTAL EXAM DLP: 1329.[address] scans at [facility] use at least one of these dose optimization techniques: automated exposure control; mA and/or kV adjustment per patient size (includes targeted exams where dose is matched to clinical indication); or iterative reconstruction. FINDINGS: Base of the skull and the bony calvarium are intact. Zygomatic arches and bony sinuses are intact. Nasal bones are intact. No midline shift or other significant mass effect. No findings of intracranial hemorrhage and no extra-axial fluid collection. No focal brain parenchymal abnormality. Normal ventricles and CSF spaces. CT/CT head wo con* [id number] IMPRESSION: No acute intracranial abnormality. Dictated By:Fletcher Hussein Jr MDSigned By:Fletcher Hussein Jr MDSigned Date/Time:08/29/21 1316DD/ 1311 Discharge Plan Discharge Patient Disposition: Admitted As Inpatient Clinical Impression: Intentional self-harm, Suicidal ideation Condition: Stable 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 Code ED Vpk Teacher for Tracig Fwd Exam Comprehensive
[2021-08-29 12:44] LABS: Basophils # 0.1 10^3/uL (0.0-0.1); Basophils % 0.3 %; Eosinophils % 0.1 %; Hematocrit 28.3 % (37.0-47.0); Hemoglobin 8.8 g/dL (11.5-15.3); Lymphocytes # 1.3 10^3/uL (0.8-4.8); Lymphocytes % 8.1 %; Mean Corpuscular HGB Conc 31.1 g/dL (30.0-36.0); Mean Corpuscular Volume 83.7 fl (81-99); Mean Platelet Volume 8.4 fL (7.4-10.4); Monocytes # 1.3 10^3/uL (0.2-0.9); Monocytes % 8.3 %; Neutrophils # 12.99 10^3/uL (1.8-7.7); Neutrophils % 82.6 %; Nucleated Red Blood Cells % 0 %; Platelet Count 529 10^3/cmm (130-400); Red Blood Count 3.38 10^6/uL (4.1-5.3); Red Cell Distribution Width 15.3 % (12.1-15.1); White Blood Count 15.7 10^3/uL (4.0-10.0)
[2021-08-29 13:12] LABS: Anion Gap 23.1 (5-19); Blood Urea Nitrogen 28 mg/dL (6-20); Calcium 9.8 mg/dL (8.5-10.5); Carbon Dioxide 20 mmol/L (22-29); Chloride 92 mmol/L (98-107); Glomerular Filtration Rate 37.9 mL/min (90-130); Glucose 257 mg/dL (65-115); Osmolality Calculated 286 mOsm/kg (285-295); Potassium 4.1 mmol/L (3.5-5.1); Sodium 131 mmol/L (136-145); Thyroid Stimulating Hormone 0.88 uIU/mL (0.27-4.20)
[2021-08-29 13:13] LABS: Acetaminophen < 5.0 ug/mL (10-30); Salicylate < 0.3 mg/dL (3-10)
[2021-08-29 13:24] LABS: HCG, Serum Qual Negative (Negative)
[2021-08-29 13:54] LABS: Free T4 Free Thyroxine 1.59 ng/dL (0.82-1.77)
[2021-08-29 19:07] LABS: Glucose Point of Care 184 mg/dL (70-110)
[2021-08-29] MEDS: cyclobenzaprine 10 mg Tablet PO (21:15)
[2021-08-29] MEDS: ibuprofen 600 mg Tablet PO (21:16)
[2021-08-29 21:31] VITALS: BP 158/92; PULSE 100; RESP 18; TEMP 36.7; O2SAT 97
[2021-08-29 22:06] VITALS: RESP 18; O2SAT 97
[2021-08-29] MEDS: ropinirole 1 mg Tablet PO (22:06)
[2021-08-29] MEDS: gabapentin 300 mg Capsule 600 MG PO (22:06)
[2021-08-29] MEDS: quetiapine 25 mg Tablet PO (22:06)
[2021-08-29] MEDS: oxyCODONE 5 mg IR Tab/Cap 10 MG PO (22:06)
[2021-08-30 01:14] LABS: Glucose Point of Care 188 mg/dL (70-110)
--- NOTE | 2021-08-30 02:09 | PC.NURSE ---
Insulin four units ( regular) for Glucose of 188 Not given / Patient refused.
--- NOTE | 2021-08-30 04:13 | PHA.FALL ---
A Pharmacy Consult Was Conducted For Cherrie Solomon Due To: Verdugo Fall Scale Risk Level: High Fall Risk On 08/29/21 21:18 And A Medication Fall Risk Score Greater Than 10. The Recommendations Are As Follows: Amlodipine DYLAN: 1,3,4,5,7,9,10 Cyclobenzaprine DYLAN: 1,3,4,9,10 Gabapentin DYLAN: 1,3,4,5,6,7,8,10 Haloperidol DYLAN: 1,3,4,5,7,8,10 Ibuprofen DYLAN: 1,2,3,4,7,8,11 Lorazepam DYLAN: 1,3,4,5,6,8,10 Metoprolol DYLAN: 1,2,3,4,5,9,10 Olanzapine DYLAN: 2,3,4,5,7,8 Oxycodone DYLAN: 1,2,3,4,5,6,7,8,9,10 Quetiapine DYLAN: 2,3,4,5,7,8 Tamsulosin DYLAN: 1,3,4,7,9,10 Trazodone DYLAN: 1,2,3,4,7,8,10 Medications which cause/contribute to: 1 = sedation/fatigue/lethargy 2 = decreased alertness 3 = postural/orthostatic hypotension 4 = dizziness 5 = decreased neuromuscular function/ataxia 6 = decreased memory/cognitive impairment 7 = blurred vision 8 = confusion 9 = arrhythmias 10 = syncope 11 = anemia
[2021-08-30 06:00] VITALS: BP 94/58; PULSE 88; RESP 16; TEMP 36.7; O2SAT 98
[2021-08-30 06:22] LABS: Glucose Point of Care 141 mg/dL (70-110)
--- NOTE | 2021-08-30 06:36 | PM.CONSULT ---
Providers/Reason For Consult Consulting Physician/Specialty*: Sonali Emery MD/Hospitalist Reason for Consult*: management of diabetes mellitus. Attending Physician: Sha Martinez MD Primary Care Provider: Angelic Martinez MD History of Present Illness History of Present Illness Cherrie Solomon is a 41 year old female with multiple comorbidities including type I diabetes mellitus, history of diabetic foot with amputation bilaterally, poor vision and blindness, gastroparesis, recurrent nausea vomiting and chronic pain. He has a history of multiple medical admissions in the past until established with home health. She was recently admitted at [facility] where her left leg stump was revised, per history it appears this was for osteomyelitis. She states that all of the infected bone was removed and she was placed on Bactrim DS twice daily for 7 days and was to call the office today to establish follow-up. She still has summer in place from his most recent surgery. Currently there are no signs of cellulitis. States that her stump also was reshaped as she is expected to be fitted with a prosthesis. Presented to the emergency room yesterday with suicidal ideation and self-harm for which she has been [facility] and is currently undergoing treatment there. Hospitalist service is consulted for diabetes comanagement and reported falls however patient reports these are related to her poor vision and being a bilateral amputee, currently in a wheelchair. No complaints of syncope chest pain dyspnea palpitations, fever. Review of Systems General: Reports: 10 or more systems reviewed and unremarkable except in HPI and below Const: Denies: fever(s), chills or body aches Eyes: Denies: change in vision, blurry vision or photophobia ENMT: Reports: hoarseness; Denies: throat pain, enlarged tonsils, odynophagia or nasal congestion Card: Denies: chest pain, palpitations, irregular heart rhythm, edema, swelling of feet/ankles, lightheadedness, pre-syncope, dyspnea on exertion or orthopnea Resp: Denies: dyspnea, productive cough, non-productive cough, wheezing, stridor, pain on inspiration, change in phlegm color, hemoptysis or chest congestion GI: Denies: abdominal pain, nausea, vomiting, hematemesis, coffee ground emesis, dysphagia, heartburn, diarrhea, constipation, GI cramping, change in stool character, hematochezia or melena : Denies: flank pain, difficulty voiding, dysuria, urinary frequency, urinary urgency, urinary hesitancy or hematuria Musc: Denies: neck pain, back pain, extremity pain, joint swelling, joint warmth or deformity Neuro: Denies: headache(s), numbness in extremities, weakness in extremities, sensory changes, difficulty walking, frequent falls, dizziness, vertigo, behavioral changes, Slurred speech present or seizure-like activity Psych: Denies: anxiety, depression, suicidal ideation or homicidal ideation Endo: Denies: polyuria, polydipsia, tired all the time, cold intolerance or hot flashes Keith/Lymph: Denies: easy bruising or easy bleeding Medications/Allergies Home Medications Medication Instructions Recorded Confirmed Last Taken Type cyclobenzaprine 10 mg tablet 10 mg PO BID PRN 30 Days #60 tab 07/03/21 08/29/21 Unknown Rx docusate sodium 100 mg capsule 100 mg PO BID 07/03/21 08/29/21 Unknown History duloxetine 30 mg capsule,delayed 30 mg PO BID 30 Days #60 cap 07/03/21 08/29/21 Unknown Rx release gabapentin 600 mg tablet 600 mg PO QID 30 Days #120 tab 07/03/21 08/29/21 Unknown Rx hydralazine 25 mg tablet 25 mg PO QID PRN 30 Days #120 tab 07/03/21 08/29/21 Unknown Rx insulin glargine 100 unit/mL (3 40 unit SUBCUT BEDTIME 30 Days #15 07/03/21 08/29/21 Unknown Rx mL) subcutaneous pen ml metoclopramide HCl 10 mg tablet 10 mg PO Q6H PRN 30 Days #120 tab 07/03/21 08/29/21 Unknown Rx miscellaneous medical supply 1 ea MISCELLANEOUS .COMPLEX #1 ea 07/03/21 08/29/21 Unknown Rx pantoprazole 40 mg tablet,delayed 40 mg PO DAILY 30 Days #30 tab 07/03/21 08/29/21 Unknown Rx release pen needle, diabetic 33 gauge x #100 ea 07/03/21 08/29/21 Unknown Rx 1/4 potassium chloride 20 mEq 20 meq PO DAILY 30 Days #30 tab 07/03/21 08/29/21 Unknown Rx tablet,extended release quetiapine 25 mg tablet 25 mg PO .at bedtime 30 Days #30 07/03/21 08/29/21 Unknown Rx tab spironolactone 25 mg tablet 25 mg PO BID 30 Days #60 tab 07/03/21 08/29/21 Unknown Rx blood sugar diagnostic #100 ea 07/12/21 08/29/21 Unknown Rx insulin aspart U-100 100 unit/mL 10 unit SUBCUT TID 30 Days #15 ml 07/17/21 08/29/21 Unknown Rx (3 mL) subcutaneous pen MDD 30 units ondansetron 8 mg disintegrating 8 mg PO Q12H PRN #60 tab 07/18/21 08/29/21 Unknown Rx tablet amlodipine 10 mg PO DAILY 08/29/21 08/29/21 Unknown History atorvastatin 40 mg PO DAILY 08/29/21 08/29/21 Unknown History flucytosine 2,500 mg PO Q6H 08/29/21 08/29/21 Unknown History metoprolol succinate 25 mg PO DAILY 08/29/21 08/29/21 Unknown History oxycodone 5 - 10 mg PO Q6H PRN 08/29/21 08/29/21 Unknown History ropinirole 1 mg PO BEDTIME 08/29/21 08/29/21 Unknown History tamsulosin 0.4 mg PO DAILY 08/29/21 08/29/21 Unknown History Allergies Allergy/AdvReac Type Severity Reaction Status Date / Time morphine Allergy ALGY-Difficulty Verified 08/01/21 07:45 Breathing Current Medications Generic Name Dose Route Start Last Admin Trade Name Freq PRN Reason Stop Dose Admin Cyclobenzaprine HCl 10 mg 08/29/21 20:21 08/29/21 21:15 Cyclobenzaprine 10 Mg Tablet PO 10 mg BID PRN Administration MUSCLE SPASMS Gabapentin 600 mg 08/29/21 21:45 08/29/21 22:06 Gabapentin 300 Mg Capsule PO 600 mg QID DAWSON Administration Ibuprofen 600 mg 08/29/21 20:17 08/29/21 21:16 Ibuprofen 600 Mg Tablet PO 600 mg Q6H PRN Administration MODERATE PAIN Oxycodone HCl 10 mg 08/29/21 20:21 08/29/21 22:06 Oxycodone 5 Mg Ir Tab/Cap PO 09/03/21 20:20 10 mg Q6H PRN Administration Pain Quetiapine Fumarate 25 mg 08/29/21 21:45 08/29/21 22:06 Quetiapine 25 Mg Tablet PO 25 mg BEDTIME DAWSON Administration Ropinirole HCl 1 mg 08/29/21 21:00 08/29/21 22:06 Ropinirole 1 Mg Tablet PO 1 mg BEDTIME DAWSON Administration PFSH Acute PFSH: Medical History Acute hyponatremia Acute renal failure Back pain C. 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 Nausea & vomiting Non-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 PTSD (post-traumatic stress disorder) Self-harming behavior Self-harming behavior Suicidal ideation Suicidal ideation Toe infection UTI (urinary tract infection) Surgical History Below-knee amputation of left lower extremity H/O esophagogastroduodenoscopy (12/31/20) Bile reflux gastritis, grade B esophagitis H/O exploratory laparotomy x 3 History of amputation of right forefoot Hx of cholecystectomy Previous section x 3 S/P coronary artery stent placement x 1 S/P percutaneous endoscopic gastrostomy (PEG) tube placement Family History Unknown Diabetes extensive, type II Other CHF (congestive heart failure) Social History Smoking and tobacco status: current every day smoker Quit status (tobacco): has quit using tobacco Former quit date comment: 15 yrs ago Alcohol intake: former Former alcohol use details: 15 yrs ago Household members: spouse Marital status: Sexually active: Yes (1, ) Female Reproductive History: Date of last menstrual period: 12/17/20 Spontaneous abortions: No Vitals/I&O/Wt Last Vital Signs Temp 98.1 F 08/30/21 06:00 Pulse 88 08/30/21 06:00 Resp 16 01/12/22 06:00 BP 94/58 08/30/21 06:00 Pulse Ox 98 08/30/21 06:00 Weight last 48 hrs Weight 88.621 kg Physical Exam Narrative: EXAM NARRATIVE: GEN: Awake, alert and oriented, no acute distress CVS: S1S2 N RS: CTA B/L Abd: Soft, nt/nd , bs+ PILOT CAPTAIN: no focal neuro deficits A&P Assessment and plan (1) Intentional self-harm: Status: Acute (2) Suicidal ideation: Status: Acute (3) Diabetes mellitus type 1: Status: Chronic Qualifiers: Diabetes mellitus complication status: with hyperglycemia Qualified Code(s): E10.65 - Type 1 diabetes mellitus with hyperglycemia Additional A&P Information Patient currently admitted to the neuro psychiatric floor for suicidal ideation and self-harm. Hospitalist service consulted for management of type 1 diabetes mellitus. Last HbA1c at 7.5. Reports compliance with insulin regimen at home. Can continue with her home dose of insulin glargine 40 units subcutaneous at bedtime and 10 units Premeal insulin with Accu-Cheks before meals and at bedtime. Fingerstick range 1 40-1 84. It appears she had refused her long-acting insulin overnight. Counseled on the importance of taking long-acting insulin in the setting of type 1 diabetes. Creatinine currently at 1.5, this is her Baseline as of December 2020. Review of past records shows in February 2021 her peak creatinine was at 4.4. States she was recently discharged from [facility] about a week ago after revision of her stump on the left leg. Per her related to osteomyelitis which which was resected and the stump was revised to fit prosthesis. No current signs of infection at site. Summer still in place. If patient expected to be discharged in 7-1 0 days, [facility] If expected to have prolonged admission, surgical services may be consulted for staple removal. Requetes records from [facility] regarding recent admission. leukocytosis on lab noted, may be related to stress, recommend repeating labs to ensure downtrend. Please call with any questions or concerns or worsening labs 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 Code Acute Engraver Flatware for Chg Fwd Diagnoses Intentional self-harm Suicidal ideation R45.851 Diabetes mellitus type 1 E10.65 Diabetes mellitus complication status: with hyperglycemia
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
[2021-08-30 07:27] LABS: Basophils # 0.1 10^3/uL (0.0-0.1); Eosinophils # 0.2 10^3/uL (0.0-0.8); Eosinophils % 3.2 %; Hemoglobin 9.4 g/dL (11.5-15.3); Lymphocytes # 2.3 10^3/uL (0.8-4.8); Lymphocytes % 32.8 %; Mean Corpuscular HGB Conc 29.4 g/dL (30.0-36.0); Mean Corpuscular Volume 88.6 fl (81-99); Mean Platelet Volume 8.4 fL (7.4-10.4); Monocytes # 0.7 10^3/uL (0.2-0.9); Monocytes % 9.9 %; Neutrophils # 3.59 10^3/uL (1.8-7.7); Neutrophils % 52.5 %; Nucleated Red Blood Cells % 0 %; Platelet Count 477 10^3/cmm (130-400); Red Blood Count 3.61 10^6/uL (4.1-5.3); Red Cell Distribution Width 15.5 % (12.1-15.1); White Blood Count 6.9 10^3/uL (4.0-10.0)
[2021-08-30 07:44] LABS: Alanine Aminotransferase 10 U/L (0-33); Albumin Level 3.9 g/dL (3.5-5.2); Alkaline Phosphatase 123 IU/L (35-105); Anion Gap 19.9 (5-19); Aspartate Amino Transferase 20 U/L (0-32); Blood Urea Nitrogen 22 mg/dL (6-20); Calcium 8.8 mg/dL (8.5-10.5); Carbon Dioxide 22 mmol/L (22-29); Chloride 95 mmol/L (98-107); Globulin 3.5 g/dL (1.3-4.6); Glomerular Filtration Rate 32.8 mL/min (90-130); Glucose 131 mg/dL (65-115); Osmolality Calculated 281 mOsm/kg (285-295); Potassium 3.9 mmol/L (3.5-5.1); Sodium 133 mmol/L (136-145); Total Bilirubin 0.4 mg/dL (0.15-1.2); Total Protein 7.4 g/dL (6.6-8.7)
[2021-08-30] MEDS: tamsulosin 0.4 mg Capsule PO (10:22)
[2021-08-30] MEDS: amlodipine 10 mg Tablet PO (10:22)
[2021-08-30] MEDS: metoprolol succinate ER (24 HR) 25 mg Tablet PO (10:23)
[2021-08-30] MEDS: docusate sodium 100 mg Capsule PO ×2 (10:23→18:51)
[2021-08-30] MEDS: atorvastatin 40 mg Tablet PO (10:23)
[2021-08-30 10:24] VITALS: RESP 18
[2021-08-30] MEDS: oxyCODONE 5 mg IR Tab/Cap 10 MG PO ×3 (10:24→22:30)
[2021-08-30] MEDS: gabapentin 300 mg Capsule 600 MG PO ×4 (10:25→21:47)
[2021-08-30] MEDS: insulin lispro 100 unit/1 mL 10 UNIT SUBCUT ×2 (10:25→15:17)
[2021-08-30 12:38] LABS: Glucose Point of Care 205 mg/dL (70-110)
--- NOTE | 2021-08-30 13:00 | NPU.GN ---
[facility] Group Topic:Wheel of Positive thoughts versus Negative Thoughts General Mood of Group: Cherrie did attend group although she struggled as she can not see. She still had a positive attitude and participated in group and was kind to others. This typewriter mechanic aided patient to complete the [facility] new patient packet for service. She mentioned that she wanted services before but could never make the appointments.
[2021-08-30 14:00] VITALS: BP 94/58; PULSE 88; RESP 18; TEMP 36.7; O2SAT 98
[2021-08-30 15:19] LABS: Glucose Point of Care 170 mg/dL (70-110)
[2021-08-30 16:38] LABS: Glucose Point of Care 122 mg/dL (70-110)
[2021-08-30 16:42] VITALS: RESP 18
[2021-08-30 17:56] VITALS: BP 97/67; PULSE 102; RESP 20; TEMP 36.1; O2SAT 97
[2021-08-30] MEDS: duloxetine 20 mg Capsule PO (18:51)
[2021-08-30 20:25] LABS: Glucose Point of Care 178 mg/dL (70-110)
[2021-08-30] MEDS: quetiapine 25 mg Tablet PO (21:47)
[2021-08-30] MEDS: insulin glargine 100 units/1 mL 40 UNIT SUBCUT (21:47)
[2021-08-30] MEDS: ropinirole 1 mg Tablet PO (21:47)
[2021-08-30] MEDS: ondansetron 4 MG Tablet PO (21:48)
[2021-08-30 22:30] VITALS: RESP 16
[2021-08-30] MEDS: hyDROXYzine 25 mg Capsule 50 MG PO (22:30)
[2021-08-30] MEDS: trazodone 50 mg Tablet PO (22:32)
[2021-08-31] VITALS (7 sets, daily range): BP systolic 87–140; BP diastolic 50–70; PULSE 71–83; RESP 14–18; TEMP 36.6–36.9; O2SAT 96–98
--- NOTE | 2021-08-31 00:41 | PC.NURSE ---
Patient requested zofran for nausea along with vistaril for anxiety and trazodone for sleep. These were all effective as she was dozing off to sleep when she received her pain medication. She is asleep with no signs or smyptoms.
[2021-08-31 00:42] LABS: Amphetamines Screen Urine Negative (Negative); Barbiturates Screen Urine Negative (Negative); Benzodiazepines Screen Urine Positive (Negative); Cocaine Screen Urine Negative (Negative); Opiate Screen Urine Negative (Negative); PCP Screen Urine Negative (Negative); THC Screen Urine Positive (Negative)
[2021-08-31 03:09] LABS: Glucose Point of Care 190 mg/dL (70-110)
[2021-08-31] MEDS: cyclobenzaprine 10 mg Tablet PO ×2 (03:12→13:32)
--- NOTE | 2021-08-31 04:56 | PC.NURSE ---
Patient states her l bka joya and is having spasms where the jose carlos are. Flexeril given. Medication effective. Patient resting quietly in bed
--- NOTE | 2021-08-31 05:04 | PC.NURSE ---
Patient had a blood sugar of 178. Dr Emery was consulted as the patient had a scheduled 10 units of humulog to be given. korey also had an order for lantus 40 units. Per physician orders hold humalog insulin and give the lantus. Recheck sugar at 0300. Blood sugar checked at 0300 and it was 190.
[2021-08-31] MEDS: oxyCODONE 5 mg IR Tab/Cap 10 MG PO ×4 (05:17→23:05)
--- NOTE | 2021-08-31 05:58 | PC.NURSE ---
Pain medication is effective for l bka pain per the patient.
[2021-08-31] MEDS: amlodipine 10 mg Tablet PO (08:17)
[2021-08-31] MEDS: docusate sodium 100 mg Capsule PO (08:17)
[2021-08-31] MEDS: duloxetine 20 mg Capsule PO ×2 (08:17→17:41)
[2021-08-31] MEDS: metoprolol succinate ER (24 HR) 25 mg Tablet PO (08:17)
[2021-08-31] MEDS: atorvastatin 40 mg Tablet PO (08:17)
[2021-08-31] MEDS: tamsulosin 0.4 mg Capsule PO (08:17)
[2021-08-31] MEDS: gabapentin 300 mg Capsule 600 MG PO ×4 (08:18→21:07)
[2021-08-31] MEDS: insulin lispro 100 unit/1 mL 10 UNIT SUBCUT ×2 (10:22→15:28)
--- NOTE | 2021-08-31 10:44 | NPU.GN ---
[facility] Group Topic:is Plan, Triggers, Coping mechanisms General Mood of Group: Cherrie did not attend group today.
[2021-08-31 11:29] LABS: Glucose Point of Care 285 mg/dL (70-110)
--- NOTE | 2021-08-31 13:13 | W.PM.NPUPNS ---
Subjective NPU Subjective: Interval history: She continues to have significant pain in her legs. He says that her debilitating pain that makes her feel so bad she wants to is caused by her gastric paresis. She says that is when she does too much was too active it causes problems. He says that she only sleeps 2 or 3 hours per night. Has been a problem for sometime. It is certainly possible that actually slept better her stomach might be doing better. She agreed to increase the Seroquel from 25 up to 100 mg and discontinue the trazodone as needed for sleep. He says that sometimes her appetite is very low and in general she needs something to increase her appetite. Mental Status Exam MSE Comments: This is an overweight white female in hospital scrubs with limited grooming and eye contact. With notable below-knee amputation on her left leg and a significant abrasion in the middle top of her forehead. No abnormal movements except for psychomotor retardation. Mostly cooperative with exam in mild distress. Speech was decreased rate and volume. Mood described as in pain, affect somewhat somnolent. Thought process organized. Thought content: Patient denied suicidal ideation or, homicidal ideation, there were no delusions reported or noted, there and she denied auditory or visual hallucinations. Attention and concentration were intact and memory appeared reliable but none were formally tested. She is alert and oriented x3. Insight and judgment are limited, and impulse control is limited versus impaired. Cognition: Patient Appearance: Appears Older than Age Level of Consciousness: Awake and Alert Patient Cognition Impaired: Yes Ability to Follow Directions: Poor Patient Orientation (long list): Person, Place, Time, Name, Birthday and Month Comprehension Ability: Mild Impairment Hallucination Type: None Thought Process: Confused Affect: Affect Description: Appropriate and Calm Behavior: Patient Behavior: Appropriate and Cooperative Speech Pattern: Appropriate and Clear Vitals/I&O/Wt Last Vital Signs Temp 98.0 F 09/01/21 05:37 Pulse 110 H 09/01/21 05:37 Resp 14 09/01/21 12:07 BP 104/73 09/01/21 05:37 Pulse Ox 98 09/01/21 12:07 Data NPU : 08/30/21 07:16 08/30/21 07:16 A&P Assessment and plan (1) Intentional self-harm: Status: Acute (2) Suicidal ideation: Status: Acute (3) Insomnia: Status: Acute Qualifiers: Insomnia type: due to medical condition Qualified Code(s): G47.01 - Insomnia due to medical condition (4) GERD (gastroesophageal reflux disease): Status: Acute Qualifiers: Esophagitis presence: without esophagitis Qualified Code(s): K21.9 - Gastro-esophageal reflux disease without esophagitis (5) ALEJANDRO (generalized anxiety disorder): Status: Acute (6) Noncompliance: Status: Acute (7) Dehiscence of amputation stump: Status: Acute (8) Foot osteomyelitis, right: Status: Acute Qualifiers: Osteomyelitis type: other chronic Qualified Code(s): M86.671 - Other chronic osteomyelitis, right ankle and foot (9) Diabetic ophthalmopathy: Status: Acute (10) Coronary artery disease: Status: Acute Qualifiers: Coronary Disease-Associated Artery/Lesion type: [place] artery [place] vs. transplanted heart: [place] heart Associated angina: without angina Qualified Code(s): I25.10 - Atherosclerotic heart disease of [place] coronary artery without angina pectoris (11) Diabetic neuropathy: Status: Acute Qualifiers: Diabetes mellitus type: type 1 Diabetes mellitus complication detail: diabetic polyneuropathy Qualified Code(s): E10.42 - Type 1 diabetes mellitus with diabetic polyneuropathy (12) Amputation of toe of right foot: Status: Acute Additional A&P Information This is a 40-year-old white female with a long history of mental health, trauma, likely cluster B personality disorder and medical issues with frequent hospitalizations and emergency room visits who presents endorsing that her pain has become significant enough that she rather . 1. Continue current medication. Cymbalta 20 mg twice daily. Discontinue trazodone 50 mg as needed and increase Seroquel to 100 mg at bedtime. 2. Continue every 15 minute checks for safety. 3. Encourage individual, group and milieu therapies. 4. Encourage sober living treatment after discharge at the highest level of care to which he is willing to commit. . Involuntary Hold Information 96 Hour Hold: 96 Hour Involuntary Admission: Yes 96 Hour Hold Ending Date: 09/04/21 96 Hour Hold Ending Time: 00:01 Attestations U Medical Necessity Statement*: Inpatient hospitalization is medically necessary and the clinically appropriate intervention at this time. We will initiate medications and make changes as indicated. 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 transplanted heart: [place] heart Associated angina: without angina Diabetic neuropathy E10.42 Diabetes mellitus type: type 1 Diabetes mellitus complication detail: diabetic polyneuropathy Amputation of toe of right foot S98.131A
[2021-08-31] MEDS: ibuprofen 600 mg Tablet PO (13:28)
--- NOTE | 2021-08-31 13:55 | NPU.GN ---
[facility] 12:30-13:30 Group Group Topic: Negative and Positive Attributes verses Self Imagery General Mood of Group: Cherrie did not attend this group she was with other staff.
[2021-08-31] MEDS: loperamide 2 mg Capsule PO (15:20)
[2021-08-31] MEDS: ondansetron 4 MG Tablet PO (15:30)
[2021-08-31 16:27] LABS: Glucose Point of Care 63 mg/dL (70-110)
[2021-08-31 20:17] LABS: Glucose Point of Care 174 mg/dL (70-110)
[2021-08-31] MEDS: hyDROXYzine 25 mg Capsule 50 MG PO (21:07)
[2021-08-31] MEDS: ropinirole 1 mg Tablet PO (21:07)
[2021-08-31] MEDS: quetiapine XR (24HR) 50 mg Tablet 100 MG PO (21:07)
[2021-08-31] MEDS: insulin glargine 100 units/1 mL 40 UNIT SUBCUT (21:11)
[2021-08-31] MEDS: insulin lispro 100 unit/1 mL SUBCUT (21:20)
[2021-08-31] MEDS: trazodone 50 mg Tablet PO (23:06)
[2021-09-01] VITALS (7 sets, daily range): BP systolic 98–104; BP diastolic 52–73; PULSE 82–110; RESP 14–20; TEMP 36.7–37.2; O2SAT 95–99
--- NOTE | 2021-09-01 04:46 | PC.NURSE ---
Patient needing something for pain. Too soon for oxy. Vistaril 50mg and Flexeril 10 mg given for pain. It was effective.
--- NOTE | 2021-09-01 04:48 | PC.NURSE ---
Patient came to the nurses station needing pain meds and insomnia. Oxy 10 mg and Trazodone 50 mg given. Meds effective.
[2021-09-01] MEDS: oxyCODONE 5 mg IR Tab/Cap 10 MG PO ×4 (05:28→23:53)
[2021-09-01] MEDS: ondansetron 4 MG Tablet PO (05:29)
[2021-09-01] MEDS: loperamide 2 mg Capsule PO (05:29)
[2021-09-01 06:25] LABS: Glucose Point of Care 141 mg/dL (70-110)
--- NOTE | 2021-09-01 06:43 | PC.NURSE ---
Patient with diarrhea and nausea. Zofran and Immodium given for symptoms. The Zofran was effective. The immodium was not. Patient had another loose stool. Patient also c/o pain with her l bka. Oxy 10 mg given. It was effective.
[2021-09-01] MEDS: cyclobenzaprine 10 mg Tablet PO ×2 (06:51→15:41)
--- NOTE | 2021-09-01 06:56 | PC.NURSE ---
Patient came to the nurses station with c/o of spasms in her l bka. Flexeril 10 mg po given for muscle spasms.
[2021-09-01] MEDS: insulin lispro 100 unit/1 mL 10 UNIT SUBCUT ×2 (10:29→14:32)
[2021-09-01] MEDS: duloxetine 20 mg Capsule PO ×2 (10:30→17:45)
[2021-09-01] MEDS: amlodipine 10 mg Tablet PO (10:30)
[2021-09-01] MEDS: tamsulosin 0.4 mg Capsule PO (10:30)
[2021-09-01] MEDS: atorvastatin 40 mg Tablet PO (10:30)
[2021-09-01] MEDS: gabapentin 300 mg Capsule 600 MG PO ×4 (10:30→20:31)
[2021-09-01] MEDS: metoprolol succinate ER (24 HR) 25 mg Tablet PO (10:30)
[2021-09-01 11:38] LABS: Glucose Point of Care 165 mg/dL (70-110)
--- NOTE | 2021-09-01 13:20 | W.PM.NPUPNS ---
Subjective NPU Subjective: Interval history: She said that the Seroquel 100 mg did help her sleep a little bit better. Unfortunately, she has been having significantly more pain on her stump revision and it appears to be infected. We will have the hospitalist come and look at it and make recommendation. She did have some nausea but they gave her some Imodium and it is better. She does not have much stomach pain today. She denies any suicidal ideation or wishes that she were . Mental Status Exam MSE Comments: This is an overweight white female in hospital scrubs with limited grooming and eye contact. With notable below-knee amputation on her left leg and a significant abrasion in the middle top of her forehead. No abnormal movements except for psychomotor retardation. Mostly cooperative with exam in mild distress. Speech was decreased rate and volume. Mood described as in pain, affect somewhat somnolent. Thought process organized. Thought content: Patient denied suicidal ideation or, homicidal ideation, there were no delusions reported or noted, there and she denied auditory or visual hallucinations. Attention and concentration were intact and memory appeared reliable but none were formally tested. She is alert and oriented x3. Insight and judgment are limited, and impulse control is limited versus impaired. Cognition: Patient Appearance: Appears Older than Age Level of Consciousness: Awake and Alert Patient Cognition Impaired: Yes Ability to Follow Directions: Poor Patient Orientation (long list): Person, Place, Time, Name, Birthday and Month Comprehension Ability: Mild Impairment Hallucination Type: None Thought Process: Confused Affect: Affect Description: Appropriate and Calm Behavior: Patient Behavior: Appropriate and Cooperative Speech Pattern: Appropriate and Clear Vitals/I&O/Wt Last Vital Signs Temp 98.0 F 09/01/21 05:37 Pulse 110 H 09/01/21 05:37 Resp 14 09/01/21 12:07 BP 104/73 09/01/21 05:37 Pulse Ox 98 09/01/21 12:07 Data NPU : 08/30/21 07:16 08/30/21 07:16 A&P Assessment and plan (1) Intentional self-harm: Status: Acute (2) Suicidal ideation: Status: Acute (3) Insomnia: Status: Acute Qualifiers: Insomnia type: due to medical condition Qualified Code(s): G47.01 - Insomnia due to medical condition (4) GERD (gastroesophageal reflux disease): Status: Acute Qualifiers: Esophagitis presence: without esophagitis Qualified Code(s): K21.9 - Gastro-esophageal reflux disease without esophagitis (5) ALEJANDRO (generalized anxiety disorder): Status: Acute (6) Noncompliance: Status: Acute (7) Dehiscence of amputation stump: Status: Acute (8) Foot osteomyelitis, right: Status: Acute Qualifiers: Osteomyelitis type: other chronic Qualified Code(s): M86.671 - Other chronic osteomyelitis, right ankle and foot (9) Diabetic ophthalmopathy: Status: Acute (10) Coronary artery disease: Status: Acute Qualifiers: Coronary Disease-Associated Artery/Lesion type: [place] artery [place] vs. transplanted heart: [place] heart Associated angina: without angina Qualified Code(s): I25.10 - Atherosclerotic heart disease of [place] coronary artery without angina pectoris (11) Diabetic neuropathy: Status: Acute Qualifiers: Diabetes mellitus type: type 1 Diabetes mellitus complication detail: diabetic polyneuropathy Qualified Code(s): E10.42 - Type 1 diabetes mellitus with diabetic polyneuropathy (12) Amputation of toe of right foot: Status: Acute Additional A&P Information This is a 40-year-old white female with a long history of mental health, trauma, likely cluster B personality disorder and medical issues with frequent hospitalizations and emergency room visits who presents endorsing that her pain has become significant enough that she rather . 1. Continue current medication. Cymbalta 20 mg twice daily and Seroquel to 100 mg at bedtime. 2. Continue every 15 minute checks for safety. 3. Encourage individual, group and milieu therapies. 4. Encourage sober living treatment after discharge at the highest level of care to which he is willing to commit. . Involuntary Hold Information 96 Hour Hold: 96 Hour Involuntary Admission: Yes 96 Hour Hold Ending Date: 09/04/21 96 Hour Hold Ending Time: 00:01 Attestations U Medical Necessity Statement*: Inpatient hospitalization is medically necessary and the clinically appropriate intervention at this time. We will initiate medications and make changes as indicated. 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 transplanted heart: [place] heart Associated angina: without angina Diabetic neuropathy E10.42 Diabetes mellitus type: type 1 Diabetes mellitus complication detail: diabetic polyneuropathy Amputation of toe of right foot S98.696K
--- NOTE | 2021-09-01 13:32 | P.CONIM_ITS ---
Providers/Reason For Consult Consulting Physician/Specialty*: Hospitalist Reason for Consult*: Pain left stump Attending Physician: Sha Martinez MD Primary Care Provider: Angelic Martinez MD History of Present Illness History of Present Illness Cherrie Solomon is a 41 year old female with multiple comorbidities including type I diabetes mellitus, history of diabetic foot with amputation bilaterally, poor vision and blindness, gastroparesis, recurrent nausea vomiting and chronic pain. He has a history of multiple medical admissions in the past until established with home health. She was recently admitted at [facility] where her left leg stump was revised, per history it appears this was for osteomyelitis. She states that all of the infected bone was removed and she was placed on Bactrim DS twice daily for 7 days and was to call the office today to establish follow-up. She still has jose carlos in place from his most recent surgery. Currently there are no signs of cellulitis. States that her stump also was reshaped as she is expected to be fitted with a prosthesis. Presented to the emergency room yesterday with suicidal ideation and self-harm for which she has been admitted to the [facility] and is currently undergoing treatment there. Hospitalist service is consulted for evaluation of left leg stump, patient is stating that she was recently at [facility] where her vision was done, now she has been using pain in her stump, it is feeling warm however no active drainage. Review of Systems Const: Reports: body aches; Denies: fever(s) or chills Eyes: Denies: change in vision ENMT: Denies: throat pain Card: Reports: swelling of feet/ankles; Denies: chest pain Resp: Denies: dyspnea GI: Denies: abdominal pain : Denies: flank pain Musc: Reports: extremity pain Skin/Breast: Denies: changing lesions Neuro: Denies: headache(s) Psych: Reports: anxiety and depression Endo: Denies: polyuria Keith/Lymph: Denies: easy bruising All/Imm: Denies: urticaria Medications/Allergies Home Medications Medication Instructions Recorded Confirmed Last Taken Type cyclobenzaprine 10 mg tablet 10 mg PO BID PRN 30 Days #60 tab 07/03/21 08/29/21 Unknown Rx docusate sodium 100 mg capsule 100 mg PO BID 07/03/21 08/29/21 Unknown History duloxetine 30 mg capsule,delayed 30 mg PO BID 30 Days #60 cap 07/03/21 08/29/21 Unknown Rx release gabapentin 600 mg tablet 600 mg PO QID 30 Days #120 tab 07/03/21 08/29/21 Unknown Rx hydralazine 25 mg tablet 25 mg PO QID PRN 30 Days #120 tab 07/03/21 08/29/21 Unknown Rx insulin glargine 100 unit/mL (3 40 unit SUBCUT BEDTIME 30 Days #15 07/03/21 08/29/21 Unknown Rx mL) subcutaneous pen ml metoclopramide HCl 10 mg tablet 10 mg PO Q6H PRN 30 Days #120 tab 07/03/21 08/29/21 Unknown Rx miscellaneous medical supply 1 ea MISCELLANEOUS .COMPLEX #1 ea 07/03/21 08/29/21 Unknown Rx pantoprazole 40 mg tablet,delayed 40 mg PO DAILY 30 Days #30 tab 07/03/21 08/29/21 Unknown Rx release pen needle, diabetic 33 gauge x #100 ea 07/03/21 08/29/21 Unknown Rx 1/4 potassium chloride 20 mEq 20 meq PO DAILY 30 Days #30 tab 07/03/21 08/29/21 Unknown Rx tablet,extended release quetiapine 25 mg tablet 25 mg PO .at bedtime 30 Days #30 07/03/21 08/29/21 Unknown Rx tab spironolactone 25 mg tablet 25 mg PO BID 30 Days #60 tab 07/03/21 08/29/21 Unknown Rx blood sugar diagnostic #100 ea 07/12/21 08/29/21 Unknown Rx insulin aspart U-100 100 unit/mL 10 unit SUBCUT TID 30 Days #15 ml 07/17/21 08/29/21 Unknown Rx (3 mL) subcutaneous pen MDD 30 units ondansetron 8 mg disintegrating 8 mg PO Q12H PRN #60 tab 07/18/21 08/29/21 Unknown Rx tablet amlodipine 10 mg PO DAILY 08/29/21 08/29/21 Unknown History atorvastatin 40 mg PO DAILY 08/29/21 08/29/21 Unknown History flucytosine 2,500 mg PO Q6H 08/29/21 08/29/21 Unknown History metoprolol succinate 25 mg PO DAILY 08/29/21 08/29/21 Unknown History oxycodone 5 - 10 mg PO Q6H PRN 08/29/21 08/29/21 Unknown History ropinirole 1 mg PO BEDTIME 08/29/21 08/29/21 Unknown History tamsulosin 0.4 mg PO DAILY 08/29/21 08/29/21 Unknown History Allergies Allergy/AdvReac Type Severity Reaction Status Date / Time morphine Allergy ALGY-Difficulty Verified 08/01/21 07:45 Breathing Current Medications Generic Name Dose Route Start Last Admin Trade Name Freq PRN Reason Stop Dose Admin Amlodipine Besylate 10 mg 08/30/21 09:00 09/01/21 10:30 Amlodipine 10 Mg Tablet PO 10 mg DAILY DAWSON Administration Atorvastatin Calcium 40 mg 08/30/21 09:00 09/01/21 10:30 Atorvastatin 40 Mg Tablet PO 40 mg DAILY DAWSON Administration Cyclobenzaprine HCl 10 mg 08/29/21 20:21 09/01/21 06:51 Cyclobenzaprine 10 Mg Tablet PO 10 mg BID PRN Administration MUSCLE SPASMS Docusate Sodium 100 mg 08/30/21 09:00 09/01/21 10:36 Docusate Sodium 100 Mg Capsule PO Not Given BID DAWSON Duloxetine HCl 20 mg 08/30/21 18:00 09/01/21 10:30 Duloxetine 20 Mg Capsule PO 20 mg BID DAWSON Administration Gabapentin 600 mg 08/29/21 21:45 09/01/21 12:07 Gabapentin 300 Mg Capsule PO 600 mg QID DAWSON Administration Hydroxyzine Pamoate 50 mg 08/29/21 20:17 08/31/21 21:07 Hydroxyzine 25 Mg Capsule PO 50 mg Q6H PRN Administration ANXIETY Ibuprofen 600 mg 08/29/21 20:17 08/31/21 13:28 Ibuprofen 600 Mg Tablet PO 600 mg Q6H PRN Administration MODERATE PAIN Insulin Glargine 40 unit 08/30/21 21:00 08/31/21 21:11 Insulin Glargine 100 Units/1 Ml SUBCUT 40 unit BEDTIME DAWSON Administration Insulin Human Lispro 10 unit 08/30/21 09:00 09/01/21 10:29 Insulin Lispro 100 Unit/1 Ml SUBCUT 10 unit TID DAWSON Administration Insulin Human Lispro 0 unit 08/29/21 20:42 08/31/21 21:20 Insulin Lispro 100 Unit/1 Ml SUBCUT 2 unit WM&BEDTIME PRN Administration HYPERGLYCEMIA Protocol Loperamide HCl 2 mg 08/29/21 20:17 09/01/21 05:29 Loperamide 2 Mg Capsule PO 2 mg Q6H PRN Administration DIARRHEA Metoprolol Succinate 25 mg 08/30/21 09:00 09/01/21 10:30 Metoprolol Succinate Er (24 Hr) 25 Mg Tablet PO 25 mg DAILY DAWSON Administration Ondansetron HCl 4 mg 08/29/21 20:17 09/01/21 05:29 Ondansetron 4 Mg Tablet PO 4 mg Q6H PRN Administration NAUSEA AND VOMITING Oxycodone HCl 10 mg 08/29/21 20:21 09/01/21 12:07 Oxycodone 5 Mg Ir Tab/Cap PO 09/03/21 20:20 10 mg Q6H PRN Administration Pain Quetiapine Fumarate 100 mg 08/31/21 21:00 08/31/21 21:07 Quetiapine Xr (24hr) 50 Mg Tablet PO 100 mg BEDTIME DAWSON Administration Ropinirole HCl 1 mg 08/29/21 21:00 08/31/21 21:07 Ropinirole 1 Mg Tablet PO 1 mg BEDTIME DAWSON Administration Tamsulosin HCl 0.4 mg 08/30/21 09:00 09/01/21 10:30 Tamsulosin 0.4 Mg Capsule PO 0.4 mg DAILY DAWSON Administration PFSH Acute PFSH: Medical History Acute hyponatremia Acute renal failure Back pain C. 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 Nausea & vomiting Non-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 PTSD (post-traumatic stress disorder) Self-harming behavior Self-harming behavior Suicidal ideation Suicidal ideation Toe infection UTI (urinary tract infection) Surgical History Below-knee amputation of left lower extremity H/O esophagogastroduodenoscopy (12/31/20) Bile reflux gastritis, grade B esophagitis H/O exploratory laparotomy x 3 History of amputation of right forefoot Hx of cholecystectomy Previous section x 3 S/P coronary artery stent placement x 1 S/P percutaneous endoscopic gastrostomy (PEG) tube placement Family History Unknown Diabetes extensive, type II Other CHF (congestive heart failure) Social History Smoking and tobacco status: current every day smoker Quit status (tobacco): has quit using tobacco Former quit date comment: 15 yrs ago Alcohol intake: former Former alcohol use details: 15 yrs ago Household members: spouse Marital status: Sexually active: Yes (1, ) Female Reproductive History: Date of last menstrual period: 12/17/20 Spontaneous abortions: No Vitals/I&O/Wt Last Vital Signs Temp 98.0 F 09/01/21 05:37 Pulse 110 H 09/01/21 05:37 Resp 14 09/01/21 12:07 BP 104/73 09/01/21 05:37 Pulse Ox 98 09/01/21 12:07 Physical Exam Narrative: EXAM NARRATIVE: Middle-aged female Appears more than stated age Looks dehydrated and malnourished Was walking with the help of a walker Left leg stump has mild round shape swelling however no active drainage noted, fluctuance noted along the swelling, it feels warm to touch No redness noted around the stump Stable without any signs of infection EOMI, following Nonfocal exam No audible stridor or wheezing Saturating well on room air A&P Assessment and plan (1) Pain of amputation stump of left lower extremity: Status: Acute Additional A&P Information There is fluctuance around her left leg stump and it feels warm to touch, will obtain CT chest to rule out abscess For now I will start her on Bactrim, she is afebrile, request ESR, CBC, BMP She has been using a walker Silex without any active signs of infection, no redness CT scan shows abscess will need general surgery versus orthopedic consult Consistent carb diet Hold DVT prophylaxis Consult Attestations Medical Necessity Statement: As per primary team Time Spent in Patient Care: less than 15 minutes 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 Code 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
--- NOTE | 2021-09-01 13:42 | CTR_ITS ---
PROCEDURE INFORMATION: Exam: CT Left Lower Extremity Without Contrast; Lower Leg Exam date and time: 09/01/2021 1:42 PM Age: 41 years old Clinical indication: Swelling, leg or foot; Prior surgery; Surgery date: <1 month; Surgery type: Amp revision; Patient HX: Lle stump infection swelling; Additional info: Left leg stump infection TECHNIQUE: Imaging protocol: CT of the Left lower extremity without contrast was performed. Exam focused on the lower leg. Radiation optimization: All CT scans at this facility use at least one of these dose optimization techniques: automated exposure control; mA and/or kV adjustment per patient size (includes targeted exams where dose is matched to clinical indication); or iterative reconstruction. COMPARISON: CT lower leg LT w con [id number] 03/08/2020 10:58 AM RADIATION DOSE METRICS: Total DLP (mGy-cm): 585.88 FINDINGS: Bones/joints: Sequela of left [id number]-tdax amputation revision. Residual osseous structures are intact. No irregular osseous erosions. Soft tissues: Surgical jose carlos noted at the stump site from recent revision. Subcutaneous edema/fat induration noted around the revision for site at the stump. CT/CT lower leg LT wo con* [id number] IMPRESSION: Sequela of left below the knee amputation revision. No evidence of osteomyelitis.
[2021-09-01 15:06] LABS: Erythrocyte Sedimentation Rate 28 mm/hr (0-15)
[2021-09-01 16:57] LABS: Glucose Point of Care 108 mg/dL (70-110)
[2021-09-01] MEDS: sulfamethoxazole-trimeth DS 160-800 mg Tablet 1 TAB PO (17:45)
[2021-09-01] MEDS: ibuprofen 600 mg Tablet PO (17:45)
[2021-09-01] MEDS: insulin glargine 100 units/1 mL 40 UNIT SUBCUT (20:30)
[2021-09-01] MEDS: hyDROXYzine 25 mg Capsule 50 MG PO (20:31)
[2021-09-01] MEDS: quetiapine XR (24HR) 50 mg Tablet 100 MG PO (20:32)
[2021-09-01] MEDS: ropinirole 1 mg Tablet PO (20:33)
[2021-09-01 20:43] LABS: Glucose Point of Care 137 mg/dL (70-110)
--- NOTE | 2021-09-02 00:42 | PC.NURSE ---
Patient was anxious. Vistaril was administered. It was effective.
--- NOTE | 2021-09-02 00:42 | PC.NURSE ---
Patient woke up with a spasm in her left bka. Oxy given for a pain rating of 8. It was effective. Pain rating down to a 3.
[2021-09-02] MEDS: ibuprofen 600 mg Tablet PO ×3 (02:52→21:53)
[2021-09-02] MEDS: cyclobenzaprine 10 mg Tablet PO ×2 (02:52→10:52)
[2021-09-02] MEDS: ondansetron 4 MG Tablet PO ×3 (04:36→13:25)
[2021-09-02 05:57] VITALS: BP 94/58; PULSE 80; RESP 17; TEMP 36.3; O2SAT 96
--- NOTE | 2021-09-02 06:15 | PC.NURSE ---
Ibuprofen and flexeril given for pain in the left bka. This was effective.
--- NOTE | 2021-09-02 06:17 | PC.NURSE ---
zofran given for nausea. It was effective.
[2021-09-02 06:20] VITALS: RESP 18
[2021-09-02 06:20] LABS: Glucose Point of Care 131 mg/dL (70-110)
[2021-09-02] MEDS: oxyCODONE 5 mg IR Tab/Cap 10 MG PO ×3 (06:20→17:10)
--- NOTE | 2021-09-02 07:25 | P.NPUPN_ITS ---
Subjective NPU Subjective: Interval history: She is still having pain in her tiilx-jvf-jtxy amputation site. It is still red and swollen. CT scan was normal. Bactrim was started by the hospitalist. Summer still need to be removed. He continues to be depressed but denies any suicidal ideation. she still had difficulty sleeping despite increasing the Seroquel to 100 mg. We will try 200 mg. We will increase Cymbalta to 30 mg twice a day. Mental Status Exam MSE Comments: This is an overweight white female in hospital scrubs with limited grooming and eye contact. With notable below-knee amputation on her left leg and a significant abrasion in the middle top of her forehead. No abnormal movements except for mild psychomotor retardation. Mostly cooperative with exam in mild distress. Speech was decreased rate and volume. Mood described as in depressed but better, affect mildly dysphoric. Thought process organized. Thought content: Patient denied suicidal ideation or, homicidal id eation, there were no delusions reported or noted, there and she denied auditory or visual hallucinations. Attention and concentration were intact and memory appeared reliable but none were formally tested. She is alert and oriented x3. Insight and judgment are limited, and impulse control is limited versus impaired. Cognition: Patient Appearance: Appears Older than Age Level of Consciousness: Awake and Alert Patient Cognition Impaired: Yes Ability to Follow Directions: Poor Patient Orientation (long list): Person, Place, Time, Name, Birthday and Month Comprehension Ability: Mild Impairment Hallucination Type: None Delusion Description: Not Present Thought Process: Appropriate Affect: Affect Description: Appropriate and Calm Behavior: Patient Behavior: Appropriate and Cooperative Speech Pattern: Appropriate and Clear Vitals/I&O/Wt Last Vital Signs Temp 97.4 F L 09/02/21 05:57 Pulse 80 09/02/21 05:57 Resp 18 09/02/21 06:20 BP 94/58 09/02/21 05:57 Pulse Ox 96 09/02/21 05:57 Data NPU : 08/30/21 07:16 08/30/21 07:16 A&P Assessment and plan (1) Intentional self-harm: Status: Acute (2) Suicidal ideation: Status: Acute (3) Insomnia: Status: Acute Qualifiers: Insomnia type: due to medical condition Qualified Code(s): G47.01 - Insomnia due to medical condition (4) GERD (gastroesophageal reflux disease): Status: Acute Qualifiers: Esophagitis presence: without esophagitis Qualified Code(s): K21.9 - Gastro-esophageal reflux disease without esophagitis (5) ALEJANDRO (generalized anxiety disorder): Status: Acute (6) Noncompliance: Status: Acute (7) Dehiscence of amputation stump: Status: Acute (8) Foot osteomyelitis, right: Status: Acute Qualifiers: Osteomyelitis type: other chronic Qualified Code(s): M86.671 - Other chronic osteomyelitis, right ankle and foot (9) Diabetic ophthalmopathy: Status: Acute (10) Coronary artery disease: Status: Acute Qualifiers: Coronary Disease-Associated Artery/Lesion type: [place] artery [place] vs. transplanted heart: [place] heart Associated angina: without angina Qualified Code(s): I25.10 - Atherosclerotic heart disease of [place] coronary artery without angina pectoris (11) Diabetic neuropathy: Status: Acute Qualifiers: Diabetes mellitus type: type 1 Diabetes mellitus complication detail: d iabetic polyneuropathy Qualified Code(s): E10.42 - Type 1 diabetes mellitus with diabetic polyneuropathy (12) Amputation of toe of right foot: Status: Acute Additional A&P Information This is a 40-year-old white female with a long history of mental health, trauma, likely cluster B personality disorder and medical issues with frequent hospitalizations and emergency room visits who presents endorsing that her pain has become significant enough that she rather . 1. Continue current medication. INcrease Cymbalta 30 mg twice daily and Seroquel to 200 mg at bedtime. 2. Continue every 15 minute checks for safety. 3. Encourage individual, group and milieu therapies. 4. Encourage sober living treatment after discharge at the highest level of care to which he is willing to commit. . Involuntary Hold Information 96 Hour Hold: 96 Hour Involuntary Admission: Yes 96 Hour Hold Ending Date: 09/04/21 96 Hour Hold Ending Time: 00:01 Attestations NPU Medical Necessity Statement*: Inpatient hospitalization is medically necessary and the clinically appropriate intervention at this time. We will initiate medications and make changes as indicated. 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 transplanted heart: [place] heart Associated angina: without angina Diabetic neuropathy E10.42 Diabetes mellitus type: type 1 Diabetes mellitus complication detail: diabetic polyneuropathy Amputation of toe of right foot S98.628K
[2021-09-02] MEDS: loperamide 2 mg Capsule PO ×3 (09:08→17:05)
[2021-09-02] MEDS: gabapentin 300 mg Capsule 600 MG PO ×4 (09:08→21:29)
[2021-09-02] MEDS: sennosides-docusate Tablet 1 TAB PO (09:08)
[2021-09-02] MEDS: tamsulosin 0.4 mg Capsule PO (09:08)
[2021-09-02] MEDS: sulfamethoxazole-trimeth DS 160-800 mg Tablet 1 TAB PO ×2 (09:09→17:05)
[2021-09-02] MEDS: atorvastatin 40 mg Tablet PO (09:09)
[2021-09-02] MEDS: amlodipine 10 mg Tablet PO (09:09)
[2021-09-02] MEDS: metoprolol succinate ER (24 HR) 25 mg Tablet PO (09:09)
[2021-09-02] MEDS: duloxetine 30 mg Capsule PO ×2 (09:09→17:05)
[2021-09-02 11:10] LABS: Glucose Point of Care 100 mg/dL (70-110)
[2021-09-02 11:52] VITALS: RESP 16; O2SAT 98
[2021-09-02 11:59] LABS: Basophils % 0.6 %; Eosinophils # 0.3 10^3/uL (0.0-0.8); Eosinophils % 4.3 %; Hematocrit 29.1 % (37.0-47.0); Hemoglobin 8.9 g/dL (11.5-15.3); Lymphocytes # 1.4 10^3/uL (0.8-4.8); Lymphocytes % 19.5 %; Mean Corpuscular HGB Conc 30.6 g/dL (30.0-36.0); Mean Corpuscular Hemoglobin 26.4 pg (28.0-34.0); Mean Corpuscular Volume 86.4 fl (81-99); Mean Platelet Volume 8.6 fL (7.4-10.4); Monocytes # 0.4 10^3/uL (0.2-0.9); Monocytes % 6.1 %; Neutrophils # 4.87 10^3/uL (1.8-7.7); Neutrophils % 69.1 %; Nucleated Red Blood Cells % 0 %; Platelet Count 496 10^3/cmm (130-400); Red Blood Count 3.37 10^6/uL (4.1-5.3); Red Cell Distribution Width 15.2 % (12.1-15.1)
[2021-09-02 12:15] LABS: Anion Gap 19.8 (5-19); Blood Urea Nitrogen 29 mg/dL (6-20); Calcium 8.7 mg/dL (8.5-10.5); Carbon Dioxide 22 mmol/L (22-29); Chloride 96 mmol/L (98-107); Glomerular Filtration Rate 28.9 mL/min (90-130); Glucose 103 mg/dL (65-115); Magnesium 1.9 mg/dL (1.7-2.3); Osmolality Calculated 284 mOsm/kg (285-295); Potassium 3.8 mmol/L (3.5-5.1); Sodium 134 mmol/L (136-145)
--- NOTE | 2021-09-02 12:43 | PC.NURSE ---
PATIENT HAS SOME SWELLING AND REDNESS AT THE INCISION SITE OF HER LEFT STUMP. PATIENT CURRENTLY STILL HAS RONALDO IN. 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
[2021-09-02] MEDS: hyDROXYzine 25 mg Capsule 50 MG PO ×2 (13:25→21:53)
[2021-09-02 14:00] VITALS: BP 101/67; PULSE 92; RESP 20; TEMP 37.1; O2SAT 98
[2021-09-02] MEDS: acetaminophen 325 mg Tablet 650 MG PO (15:19)
[2021-09-02 16:22] LABS: Glucose Point of Care 175 mg/dL (70-110)
[2021-09-02 17:10] VITALS: RESP 16; O2SAT 98
[2021-09-02] MEDS: OLANZapine 5 mg ODT PO (17:10)
[2021-09-02] MEDS: insulin lispro 100 unit/1 mL SUBCUT (17:23)
[2021-09-02] MEDS: quetiapine XR (24HR) 50 mg Tablet 200 MG PO (21:30)
[2021-09-02] MEDS: ropinirole 1 mg Tablet PO (21:30)
[2021-09-02 21:40] VITALS: BP 128/75; PULSE 80; RESP 18; TEMP 36.4; O2SAT 96
[2021-09-02 21:41] LABS: Glucose Point of Care 173 mg/dL (70-110)
[2021-09-03] VITALS (7 sets, daily range): BP systolic 89–128; BP diastolic 52–75; PULSE 61–80; RESP 15–18; TEMP 36.4–36.9; O2SAT 96–100; BMI 28.8
[2021-09-03] MEDS: oxyCODONE 5 mg IR Tab/Cap 10 MG PO ×3 (00:35→14:12)
[2021-09-03] MEDS: insulin glargine 100 units/1 mL 40 UNIT SUBCUT ×2 (01:21→20:13)
--- NOTE | 2021-09-03 03:16 | PC.NURSE ---
Patient is anxious and is in pain. Her pain is in her l bka rating it at a 6. Patient received Ibuprofen for her pain and vistaril for her anxiety. Both were effective.
--- NOTE | 2021-09-03 03:19 | PC.NURSE ---
Patient at the nurse's desk with pain of 8 in her l bka. Oxycodone 10mg given for pain. Patient resting quietly in bed. Medication effective.
[2021-09-03 07:41] LABS: Glucose Point of Care 76 mg/dL (70-110)
--- NOTE | 2021-09-03 08:04 | W.PM.NPUPNS ---
Subjective NPU Subjective: Interval history: She said she slept well last night. That is the first time that she has slept well. She has been having a little more pain in her side. Several of the other patients have had GI problems last 24 hours and she thinks that she has a stomach virus or something. She asked yesterday about her potassium and magnesium and they were drawn and were normal. Her leg feels about the same but is overshadowed somewhat by the pain in her side. It is the same thing as when her gastroparesis acts up. Consult walked with him for the surgeon to come and remove the jose carlos but that probably will not happen until tomorrow. He does not feel that the Bactrim has helped the pain thus far. She has if she could have something for anxiety when she goes home and was told that we do not start people on controlled substances but that we could give her some Vistaril to take when she is at home. She says that helped somewhat but she was hoping for something stronger. Mental Status Exam MSE Comments: This is an overweight white female in hospital scrubs with limited grooming and eye contact. With notable below-knee amputation on her left leg and a significant abrasion in the middle top of her forehead. No abnormal movements except for mild psychomotor retardation. Mostly cooperative with exam in no distress. Speech was decreased rate and volume. Mood described as in depressed but better, affect mildly dysphoric. Thought process organized. Thought content: Patient denied suicidal ideation or, homicidal ideation, there were no delusions reported or noted, there and she denied auditory or visual hallucinations. Attention and concentration were intact and memory appeared reliable but none were formally tested. She is alert and oriented x3. Insight and judgment are limited, and impulse control is limited versus impaired. Cognition: Patient Appearance: Appears Older than Age Level of Consciousness: Awake and Alert Patient Cognition Impaired: Yes Ability to Follow Directions: Poor Patient Orientation (long list): Person, Place and Time Comprehension Ability: Mild Impairment Hallucination Type: None Delusion Description: Not Present Thought Process: Appropriate Affect: Affect Description: Appropriate and Calm Behavior: Patient Behavior: Appropriate and Cooperative Speech Pattern: Appropriate and Clear Vitals/I&O/Wt Last Vital Signs Temp 97.6 F 09/03/21 06:00 Pulse 76 09/03/21 07:45 Resp 18 09/03/21 07:45 BP 89/54 09/03/21 07:45 Pulse Ox 97 09/03/21 07:45 Weight last 48 hrs Weight 88.621 kg Data NPU : 09/02/21 11:48 09/02/21 11:48 A&P Assessment and plan (1) Intentional self-harm: Status: Acute (2) Suicidal ideation: Status: Acute (3) Insomnia: Status: Acute Qualifiers: Insomnia type: due to medical condition Qualified Code(s): G47.01 - Insomnia due to medical condition (4) GERD (gastroesophageal reflux disease): Status: Acute Qualifiers: Esophagitis presence: without esophagitis Qualified Code(s): K21.9 - Gastro-esophageal reflux disease without esophagitis (5) ALEJANDRO (generalized anxiety disorder): Status: Acute (6) Noncompliance: Status: Acute (7) Dehiscence of amputation stump: Status: Acute (8) Foot osteomyelitis, right: Status: Acute Qualifiers: Osteomyelitis type: other chronic Qualified Code(s): M86.671 - Other chronic osteomyelitis, right ankle and foot (9) Diabetic ophthalmopathy: Status: Acute (10) Coronary artery disease: Status: Acute Qualifiers: Coronary Disease-Associated Artery/Lesion type: [place] artery [place] vs. transplanted heart: [place] heart Associated angina: without angina Qualified Code(s): I25.10 - Atherosclerotic heart disease of [place] coronary artery without angina pectoris (11) Diabetic neuropathy: Status: Acute Qualifiers: Diabetes mellitus type: type 1 Diabetes mellitus complication detail: diabetic polyneuropathy Qualified Code(s): E10.42 - Type 1 diabetes mellitus with diabetic polyneuropathy (12) Amputation of toe of right foot: Status: Acute Additional A&P Information This is a 40-year-old white female with a long history of mental health, trauma, likely cluster B personality disorder and medical issues with frequent hospitalizations and emergency room visits who presents endorsing that her pain has become significant enough that she rather . 1. Continue current medication. Continue Cymbalta 30 mg twice daily and Seroquel to 200 mg at bedtime. 2. Continue every 15 minute checks for safety. 3. Encourage individual, group and milieu therapies. 4. Encourage sober living treatment after discharge at the highest level of care to which he is willing to commit. . Involuntary Hold Information 96 Hour Hold: 96 Hour Involuntary Admission: Yes 96 Hour Hold Ending Date: 09/04/21 96 Hour Hold Ending Time: 00:01 Attestations NPU Medical Necessity Statement*: Inpatient hospitalization is medically necessary and the clinically appropriate intervention at this time. We will initiate medications and make changes as indicated. 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 Code Acute Corporate Administrative Assistant for Chg Fwd Diagnoses Intentional self-harm Suicidal ideation R45.851 Insomnia G47.01 Insomnia type: due to medical condition GERD (gastroesophageal reflux disease) K21.9 Esophagitis presence: without esophagitis ALEJANDRO (generalized anxiety disorder) F41.1 Noncompliance Z91.19 Dehiscence of amputation stump T87.81 Foot osteomyelitis, right M86.671 Osteomyelitis type: other chronic Diabetic ophthalmopathy E11.39 Coronary artery disease I25.10 Coronary Disease-Associated Artery/Lesion type: [place] artery [place] vs. transplanted heart: [place] heart Associated angina: without angina Diabetic neuropathy E10.42 Diabetes mellitus type: type 1 Diabetes mellitus complication detail: diabetic polyneuropathy Amputation of toe of right foot S98.131A
[2021-09-03] MEDS: cyclobenzaprine 10 mg Tablet PO (08:05)
[2021-09-03] MEDS: sennosides-docusate Tablet 1 TAB PO ×2 (08:05→17:45)
[2021-09-03] MEDS: metoprolol succinate ER (24 HR) 25 mg Tablet PO (08:05)
[2021-09-03] MEDS: duloxetine 30 mg Capsule PO ×2 (08:05→17:45)
[2021-09-03] MEDS: amlodipine 10 mg Tablet PO (08:05)
[2021-09-03] MEDS: docusate sodium 100 mg Capsule PO ×2 (08:05→17:45)
[2021-09-03] MEDS: atorvastatin 40 mg Tablet PO (08:05)
[2021-09-03] MEDS: sulfamethoxazole-trimeth DS 160-800 mg Tablet 1 TAB PO ×2 (08:05→17:45)
[2021-09-03] MEDS: tamsulosin 0.4 mg Capsule PO (08:06)
[2021-09-03] MEDS: gabapentin 300 mg Capsule 600 MG PO ×4 (08:06→20:13)
--- NOTE | 2021-09-03 10:19 | PC.NURSE ---
Addendum entered by Derrek Oconnell RN 09/03/21 10:58: PT IN BED RESTING O S/S OF DISTRESS, WILL CONTINUE TO MONITOR. Original Note: PRN MED PT GIVEN 10MG FLEXERIL FOR MUSCLE TIGHTNESS, WILL CONTINUE TO MONITOR.
[2021-09-03 12:02] LABS: Glucose Point of Care 79 mg/dL (70-110)
[2021-09-03] MEDS: hyDROXYzine 25 mg Capsule 50 MG PO ×2 (13:40→23:33)
[2021-09-03 14:10] LABS: Glucose Point of Care 201 mg/dL (70-110)
[2021-09-03] MEDS: insulin lispro 100 unit/1 mL 10 UNIT SUBCUT (14:56)
[2021-09-03 16:38] LABS: Glucose Point of Care 124 mg/dL (70-110)
[2021-09-03] MEDS: ondansetron 4 MG Tablet PO (17:45)
[2021-09-03] MEDS: OLANZapine 5 mg ODT PO (17:52)
--- NOTE | 2021-09-03 18:23 | PC.NURSE ---
Addendum entered by Derrek Oconnell RN 09/03/21 19:02: PT IN BED RESTING O S/S OF DISTRESS, WILL CONTINUE TO MONITOR. Original Note: PRN MEDS PT GIVEN 4MG ZOPHRAN FOR NAUSEA & 5 MG ZYPREXA ZYDIS FOR ANXIETY, WILL CONTINUE TO MONITOR.
--- NOTE | 2021-09-03 19:07 | P.CONIM_ITS ---
Providers/Reason For Consult Consulting Physician/Specialty*: General Surgery Dr. Soto Reason for Consult*: Left BKA stump evaluation Attending Physician: Sha Martinez MD Primary Care Provider: Angelic Martinez MD History of Present Illness History of Present Illness Cherrie Solomon is a 41 year old female currently in NPU and had undergone left BKA amputation at [facility] couple of weeks ago. I was consulted for evaluation of the stump. Patient has been complaining of worsening pain but denies any fevers or chills. She had a CT left lower extremity which showed no evidence of osteomyelitis and postop changes were noted. 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 Review of Systems General: Reports: 10 or more systems reviewed and unremarkable except in HPI and below Medications/Allergies Home Medications Medication Instructions Recorded Confirmed Last Taken Type cyclobenzaprine 10 mg tablet 10 mg PO BID PRN 30 Days #60 tab 07/03/21 08/29/21 Unknown Rx docusate sodium 100 mg capsule 100 mg PO BID 07/03/21 08/29/21 Unknown History duloxetine 30 mg capsule,delayed 30 mg PO BID 30 Days #60 cap 07/03/21 08/29/21 Unknown Rx release gabapentin 600 mg tablet 600 mg PO QID 30 Days #120 tab 07/03/21 08/29/21 Unknown Rx hydralazine 25 mg tablet 25 mg PO QID PRN 30 Days #120 tab 07/03/21 08/29/21 Unknown Rx insulin glargine 100 unit/mL (3 40 unit SUBCUT BEDTIME 30 Days #15 07/03/21 08/29/21 Unknown Rx mL) subcutaneous pen ml metoclopramide HCl 10 mg tablet 10 mg PO Q6H PRN 30 Days #120 tab 07/03/21 08/29/21 Unknown Rx miscellaneous medical supply 1 ea MISCELLANEOUS .COMPLEX #1 ea 07/03/21 08/29/21 Unknown Rx pantoprazole 40 mg tablet,delayed 40 mg PO DAILY 30 Days #30 tab 07/03/21 08/29/21 Unknown Rx release pen needle, diabetic 33 gauge x #100 ea 07/03/21 08/29/21 Unknown Rx 1/4 potassium chloride 20 mEq 20 meq PO DAILY 30 Days #30 tab 07/03/21 08/29/21 Unknown Rx tablet,extended release quetiapine 25 mg tablet 25 mg PO .at bedtime 30 Days #30 07/03/21 08/29/21 Unknown Rx tab spironolactone 25 mg tablet 25 mg PO BID 30 Days #60 tab 07/03/21 08/29/21 Unknown Rx blood sugar diagnostic #100 ea 07/12/21 08/29/21 Unknown Rx insulin aspart U-100 100 unit/mL 10 unit SUBCUT TID 30 Days #15 ml 07/17/21 08/29/21 Unknown Rx (3 mL) subcutaneous pen MDD 30 units ondansetron 8 mg disintegrating 8 mg PO Q12H PRN #60 tab 07/18/21 08/29/21 Unknown Rx tablet amlodipine 10 mg PO DAILY 08/29/21 08/29/21 Unknown History atorvastatin 40 mg PO DAILY 08/29/21 08/29/21 Unknown History flucytosine 2,500 mg PO Q6H 08/29/21 08/29/21 Unknown History metoprolol succinate 25 mg PO DAILY 08/29/21 08/29/21 Unknown History oxycodone 5 - 10 mg PO Q6H PRN 08/29/21 08/29/21 Unknown History ropinirole 1 mg PO BEDTIME 08/29/21 08/29/21 Unknown History tamsulosin 0.4 mg PO DAILY 08/29/21 08/29/21 Unknown History Allergies Allergy/AdvReac Type Severity Reaction Status Date / Time morphine Allergy ALGY-Difficulty Verified 08/01/21 07:45 Breathing Current Medications Generic Name Dose Route Start Last Admin Trade Name Freq PRN Reason Stop Dose Admin Acetaminophen 650 mg 08/29/21 20:17 09/02/21 15:19 Acetaminophen 325 Mg Tablet PO 650 mg Q4H PRN Administration MILD PAIN Amlodipine Besylate 10 mg 08/30/21 09:00 09/03/21 08:05 Amlodipine 10 Mg Tablet PO 10 mg DAILY DAWSON Administration Atorvastatin Calcium 40 mg 08/30/21 09:00 09/03/21 08:05 Atorvastatin 40 Mg Tablet PO 40 mg DAILY DAWSON Administration Cyclobenzaprine HCl 10 mg 08/29/21 20:21 09/03/21 08:05 Cyclobenzaprine 10 Mg Tablet PO 10 mg BID PRN Administration MUSCLE SPASMS Docusate Sodium 100 mg 08/30/21 09:00 09/03/21 17:45 Docusate Sodium 100 Mg Capsule PO 100 mg BID DAWSON Administration Duloxetine HCl 30 mg 09/02/21 09:00 09/03/21 17:45 Duloxetine 30 Mg Capsule PO 30 mg BID DAWSON Administration Gabapentin 600 mg 08/29/21 21:45 09/03/21 17:44 Gabapentin 300 Mg Capsule PO 600 mg QID DAWSON Administration Hydroxyzine Pamoate 50 mg 08/29/21 20:17 09/03/21 13:40 Hydroxyzine 25 Mg Capsule PO 50 mg Q6H PRN Administration ANXIETY Ibuprofen 600 mg 08/29/21 20:17 09/02/21 21:53 Ibuprofen 600 Mg Tablet PO 600 mg Q6H PRN Administration MODERATE PAIN Insulin Glargine 40 unit 08/30/21 21:00 09/03/21 01:21 Insulin Glargine 100 Units/1 Ml SUBCUT 40 unit BEDTIME DAWSON Administration Insulin Human Lispro 10 unit 08/30/21 09:00 09/03/21 14:56 Insulin Lispro 100 Unit/1 Ml SUBCUT 10 unit TID DAWSON Administration Insulin Human Lispro 0 unit 08/29/21 20:42 09/02/21 17:23 Insulin Lispro 100 Unit/1 Ml SUBCUT 2 unit WM&BEDTIME PRN Administration HYPERGLYCEMIA Protocol Loperamide HCl 2 mg 09/02/21 10:04 09/02/21 17:05 Loperamide 2 Mg Capsule PO 2 mg QID PRN Administration DIARRHEA Metoprolol Succinate 25 mg 08/30/21 09:00 09/03/21 08:05 Metoprolol Succinate Er (24 Hr) 25 Mg Tablet PO 25 mg DAILY DAWSON Administration Olanzapine 5 mg 08/29/21 20:17 09/03/21 17:52 Olanzapine 5 Mg Odt PO 5 mg Q4H PRN Administration Agitation/Psychosis Ondansetron HCl 4 mg 08/29/21 20:17 09/03/21 17:45 Ondansetron 4 Mg Tablet PO 4 mg Q6H PRN Administration NAUSEA AND VOMITING Oxycodone HCl 10 mg 08/29/21 20:21 09/03/21 14:12 Oxycodone 5 Mg Ir Tab/Cap PO 09/03/21 20:20 10 mg Q6H PRN Administration Pain Quetiapine Fumarate 200 mg 09/02/21 21:00 09/02/21 21:30 Quetiapine Xr (24hr) 50 Mg Tablet PO 200 mg BEDTIME DAWSON Administration Ropinirole HCl 1 mg 08/29/21 21:00 09/02/21 21:30 Ropinirole 1 Mg Tablet PO 1 mg BEDTIME DAWSON Administration Senna/Docusate Sodium 1 tab 09/01/21 18:00 09/03/21 17:45 Sennosides-Docusate Tablet PO 1 tab BID DAWSON Administration Tamsulosin HCl 0.4 mg 08/30/21 09:00 09/03/21 08:06 Tamsulosin 0.4 Mg Capsule PO 0.4 mg DAILY DAWSON Administration Trimethoprim/Sulfamethoxazole 1 tab 09/01/21 18:00 09/03/21 17:45 Sulfamethoxazole-Trimeth Ds 160-800 Mg Tablet PO 1 tab BID DAWSON Administration Protocol PFSH Acute PFSH: Medical History Acute hyponatremia Acute renal failure Back pain C. 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 Nausea & vomiting Non-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 PTSD (post-traumatic stress disorder) Self-harming behavior Self-harming behavior Suicidal ideation Suicidal ideation Toe infection UTI (urinary tract infection) Surgical History (Updated 09/03/21 @ 19:09 by Onesimo Soto MD) Below-knee amputation of left lower extremity H/O esophagogastroduodenoscopy (12/31/20) Bile reflux gastritis, grade B esophagitis H/O exploratory laparotomy x 3 History of amputation of right forefoot Hx of cholecystectomy Previous section x 3 S/P coronary artery stent placement x 1 S/P percutaneous endoscopic gastrostomy (PEG) tube placement Family History Unknown Diabetes extensive, type II Other CHF (congestive heart failure) Social History Smoking and tobacco status: current every day smoker Quit status (tobacco): has quit using tobacco Former quit date comment: 15 yrs ago Alcohol intake: former Former alcohol use details: 15 yrs ago Household members: spouse Marital status: Sexually active: Yes (1, ) Female Reproductive History: Date of last menstrual period: 12/17/20 Spontaneous abortions: No Vitals/I&O/Wt Last Vital Signs Temp 97.7 F 09/03/21 14:00 Pulse 61 09/03/21 14:00 Resp 18 09/03/21 14:12 BP 99/52 09/03/21 14:00 Pulse Ox 97 09/03/21 14:12 Weight last 48 hrs Weight 195 lb 6 oz Physical Exam Narrative: EXAM NARRATIVE: HEENT: Normocephalic Eye: Sclera /conjunctiva normal Abdomen: Soft to palpation Neurological: Oriented to place person and time Skin: Intact, left BKA stump: Incision is healed with jose carlos in place, in the middle of the stump there is a 3 x 3cm tender soft tissue mass just inferior to the bony prominence, overlying skin is erythematous A&P Assessment and plan (1) Below-knee amputation of left lower extremity: 41-year-old female status post BKA revision for osteomyelitis couple of weeks ago who is now developed a tender area near the staple line. The wound itself is healing well. CT performed 2 days ago showed postop changes without any evidence of osteomyelitis. Repeat CBC, BMP tomorrow Ultrasound of the left BKA stump to identify any drainable fluid collections. 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
[2021-09-03] MEDS: ropinirole 1 mg Tablet PO (20:13)
[2021-09-03] MEDS: quetiapine XR (24HR) 50 mg Tablet 200 MG PO (20:14)
--- NOTE | 2021-09-03 20:30 | PC.NURSE ---
PT'S ACCU CHECK THIS EVENING IS 124. SCHEDULED 10 UNITS OF HUMALOG WAS NOT GIVEN DUE TO PT BEING LOW ACCU CHECK THIS AM. PT AGREED TO NOT GET IT ADMINISTERED THIS EVENING.
[2021-09-03] MEDS: ibuprofen 600 mg Tablet PO (23:50)
[2021-09-04 01:05] LABS: Glucose Point of Care 124 mg/dL (70-110)
[2021-09-04] MEDS: cyclobenzaprine 10 mg Tablet PO (02:01)
[2021-09-04 06:00] VITALS: BP 109/67; PULSE 71; RESP 18; TEMP 36.7; O2SAT 100
[2021-09-04 07:10] LABS: Glucose Point of Care 147 mg/dL (70-110)
[2021-09-04 07:23] LABS: Basophils % 0.4 %; Eosinophils # 0.3 10^3/uL (0.0-0.8); Eosinophils % 5.7 %; Hematocrit 26.9 % (37.0-47.0); Hemoglobin 8.3 g/dL (11.5-15.3); Lymphocytes # 1.7 10^3/uL (0.8-4.8); Lymphocytes % 37.9 %; Mean Corpuscular HGB Conc 30.9 g/dL (30.0-36.0); Mean Corpuscular Hemoglobin 26.7 pg (28.0-34.0); Mean Corpuscular Volume 86.5 fl (81-99); Mean Platelet Volume 8.7 fL (7.4-10.4); Monocytes # 0.4 10^3/uL (0.2-0.9); Monocytes % 7.9 %; Neutrophils # 2.18 10^3/uL (1.8-7.7); Neutrophils % 47.7 %; Nucleated Red Blood Cells % 0 %; Platelet Count 377 10^3/cmm (130-400); Red Blood Count 3.11 10^6/uL (4.1-5.3); Red Cell Distribution Width 15.4 % (12.1-15.1); White Blood Count 4.6 10^3/uL (4.0-10.0)
[2021-09-04 07:41] LABS: Anion Gap 19.5 (5-19); Blood Urea Nitrogen 23 mg/dL (6-20); Calcium 8.5 mg/dL (8.5-10.5); Carbon Dioxide 20 mmol/L (22-29); Chloride 104 mmol/L (98-107); Glomerular Filtration Rate 32.8 mL/min (90-130); Glucose 130 mg/dL (65-115); Osmolality Calculated 293 mOsm/kg (285-295); Potassium 4.5 mmol/L (3.5-5.1); Sodium 139 mmol/L (136-145)
[2021-09-04] MEDS: gabapentin 300 mg Capsule 600 MG PO ×4 (08:05→20:13)
[2021-09-04] MEDS: sulfamethoxazole-trimeth DS 160-800 mg Tablet 1 TAB PO ×2 (08:05→17:14)
[2021-09-04] MEDS: sennosides-docusate Tablet 1 TAB PO ×2 (08:05→17:13)
[2021-09-04] MEDS: tamsulosin 0.4 mg Capsule PO (08:05)
[2021-09-04] MEDS: duloxetine 30 mg Capsule PO ×2 (08:06→17:14)
[2021-09-04] MEDS: amlodipine 10 mg Tablet PO (08:06)
[2021-09-04] MEDS: atorvastatin 40 mg Tablet PO (08:06)
[2021-09-04] MEDS: metoprolol succinate ER (24 HR) 25 mg Tablet PO (08:06)
[2021-09-04] MEDS: insulin lispro 100 unit/1 mL 10 UNIT SUBCUT ×2 (08:16→20:15)
--- NOTE | 2021-09-04 08:47 | P.NPUPN_ITS ---
Subjective NPU Subjective: Interval history: She said that she did not sleep as well last night. We talked about increasing the Seroquel to 300 mg but when I went to discontinue it I noticed it was the Seroquel XR version that has been administered for the last 2 nights instead of the immediate release. We will try changing to the immediate release and see how she sleeps with that. The surgeon did see her yesterday but did not remove the sutures. He working ultrasound to see if there is something that can be drained. It still looks swollen and red. She said the pain in her side is still significant as well. Her anxiety might be a little elevated but she is not sure why that would be. They will be her third day on Cymbalta 30 mg twice a day. She agreed to increase that to 60 mg twice a day tomorrow. Mental Status Exam MSE Comments: This is an overweight white female in hospital scrubs with limited grooming and eye contact. With notable below-knee amputation on her left leg and a significant abrasion in the middle top of her forehead. No abnormal movements except for mild psychomotor retardation. Mostly cooperative with exam in no distress. Speech was decreased rate and volume. Mood described as depressed and anxious, affect mildly dysphoric. Thought process organized. Thought content: Patient denied suicidal ideation or homicidal ideation, there were no delusions reported or noted, she denied auditory or visual hallucinations. Attention and concentration were intact and memory appeared reliable but none were formally tested. She is alert and oriented x3. Insight and judgment are limited, and impulse control is limited versus impaired. Cognition: Patient Appearance: Appears Older than Age Level of Consciousness: Awake and Alert Patient Cognition Impaired: Yes Ability to Follow Directions: Poor Patient Orientation (long list): Person, Place, Time, Name, Birthday and Month Comprehension Ability: Mild Impairment Hallucination Type: None Delusion Description: Not Present and Grandiose Thought Process: Appropriate Affect: Affect Description: Appropriate and Calm Behavior: Patient Behavior: Appropriate and Cooperative Speech Pattern: Appropriate and Clear Vitals/I&O/Wt Last Vital Signs Temp 98.0 F 09/04/21 06:00 Pulse 71 09/04/21 06:00 Resp 18 09/04/21 06:00 BP 109/67 09/04/21 06:00 Pulse Ox 100 09/04/21 06:00 Weight last 48 hrs Weight 88.621 kg Data NPU : 09/04/21 07:03 09/04/21 07:03 A&P Assessment and plan (1) Intentional self-harm: Status: Acute (2) Suicidal ideation: Status: Acute (3) Insomnia: Status: Acute Qualifiers: Insomnia type: due to medical condition Qualified Code(s): G47.01 - Insomnia due to medical condition (4) GERD (gastroesophageal reflux disease): Status: Acute Qualifiers: Esophagitis presence: without esophagitis Qualified Code(s): K21.9 - Gastro-esophageal reflux disease without esophagitis (5) ALEJANDRO (generalized anxiety disorder): Status: Acute (6) Noncompliance: Status: Acute (7) Dehiscence of amputation stump: Status: Acute (8) Foot osteomyelitis, right: Status: Acute Qualifiers: Osteomyelitis type: other chronic Qualified Code(s): M86.671 - Other chronic osteomyelitis, right ankle and foot (9) Diabetic ophthalmopathy: Status: Acute (10) Coronary artery disease: Status: Acute Qualifiers: Coronary Disease-Associated Artery/Lesion type: [place] artery [place] vs. transplanted heart: [place] heart Associated angina: without angina Qualified Code(s): I25.10 - Atherosclerotic heart disease of [place] coronary artery without angina pectoris (11) Diabetic neuropathy: Status: Acute Qualifiers: Diabetes mellitus type: type 1 Diabetes mellitus complication detail: diabetic polyneuropathy Qualified Code(s): E10.42 - Type 1 diabetes mellitus with diabetic polyneuropathy (12) Amputation of toe of right foot: Status: Acute Additional A&P Information This is a 40-year-old white female with a long history of mental health, trauma, likely cluster B personality disorder and medical issues with frequent hospitalizations and emergency room visits who presents endorsing that her pain has become significant enough that she rather . 1. Continue current medication. Continue Cymbalta 30 mg twice daily and Seroquel XR 200 mg 2 Seroquel IR 200 mg at bedtime. 2. Continue every 15 minute checks for safety. 3. Encourage individual, group and milieu therapies. 4. Encourage sober living treatment after discharge at the highest level of care to which he is willing to commit. . Involuntary Hold Information 96 Hour Hold: 96 Hour Involuntary Admission: Yes 96 Hour Hold Ending Date: 09/04/21 96 Hour Hold Ending Time: 00:01 Attestations NPU Medical Necessity Statement*: Inpatient hospitalization is medically necessary and the clinically appropriate intervention at this time. We will initiate medications and make changes as indicated. 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 Code Acute Computer Numerical Control Operator for Chg Fwd Diagnoses Intentional self-harm Suicidal ideation R45.851 Insomnia G47.01 Insomnia type: due to medical condition GERD (gastroesophageal reflux disease) K21.9 Esophagitis presence: without esophagitis ALEJANDRO (generalized anxiety disorder) F41.1 Noncompliance Z91.19 Dehiscence of amputation stump T87.81 Foot osteomyelitis, right M86.671 Osteomyelitis type: other chronic Diabetic ophthalmopathy E11.39 Coronary artery disease I25.10 Coronary Disease-Associated Artery/Lesion type: [place] artery [place] vs. transplanted heart: [place] heart Associated angina: without angina Diabetic neuropathy E10.42 Diabetes mellitus type: type 1 Diabetes mellitus complication detail: diabetic polyneuropathy Amputation of toe of right foot S98.131A
[2021-09-04 11:16] LABS: Glucose Point of Care 104 mg/dL (70-110)
[2021-09-04 13:05] VITALS: RESP 18; O2SAT 100
[2021-09-04] MEDS: oxyCODONE 5 mg IR Tab/Cap 10 MG PO ×2 (13:05→20:12)
[2021-09-04 14:00] VITALS: BP 109/67; PULSE 71; RESP 18; TEMP 36.7; O2SAT 100
[2021-09-04] MEDS: hyDROXYzine 25 mg Capsule 50 MG PO ×2 (15:18→20:12)
[2021-09-04] MEDS: ondansetron 4 MG Tablet PO (15:18)
--- NOTE | 2021-09-04 19:02 | PM.MISC ---
Miscellaneous Note Note: I am changing her Bactrim to doxycycline because of creatinine 1.7 however it has improved from 1.9 Dr. Soto recommended monitoring on antibiotics for now he thinks ultrasound is consistent with possible hematoma in absence of leukocytosis and febrile events. In case of further worsening of pain redness or appearance of any drainage he might be able to do I&D but continue for now conservative management.
--- NOTE | 2021-09-04 19:05 | US_ITS ---
WS: [id number] ULTRASOUND SOFT TISSUES LEFT below knee joint. HISTORY: Left BKA stump, r/o abscess COMPARISON: None available. TECHNIQUE: 2-D and color Doppler imaging is submitted. Patient is status post [id number] amputation. At the amputation site and area of clinical concern is some soft tissue thickening. Just lateral to the stump site is a heterogeneous ill-defined collec tion with low level echoes throughout measuring 1.7 x 1.3 x 0.6 cm. No significant increased vascular ity. This is in the area of erythema. There are a few other additional areas at the amputation site w hich are similar but smaller. US/US soft tissue/extremity [id number] IMPRESSION: 1. Largest focal ill-defined complex cystic collection along the lateral LEFT knee amputation site. Collection measures 1.7 x 1.3 x 0.6 cm. No increased vasc ularity. Abscess versus postoperative seroma or resolving hematoma. 2. Mild soft tissue edema in the area of interest.
[2021-09-04 19:46] LABS: Glucose Point of Care 272 mg/dL (70-110)
[2021-09-04 19:51] VITALS: BP 99/58; PULSE 73; RESP 16; TEMP 37; O2SAT 96
[2021-09-04] MEDS: quetiapine 100 mg Tablet 200 MG PO (20:11)
[2021-09-04 20:12] VITALS: RESP 18
[2021-09-04] MEDS: ropinirole 1 mg Tablet PO (20:12)
[2021-09-04] MEDS: doxycycline 100 mg Tablet PO (20:12)
[2021-09-04] MEDS: ibuprofen 600 mg Tablet PO (20:13)
[2021-09-04] MEDS: insulin glargine 100 units/1 mL 40 UNIT SUBCUT (20:14)
[2021-09-04 23:24] LABS: Glucose Point of Care 114 mg/dL (70-110)
[2021-09-05] VITALS (7 sets, daily range): BP systolic 103–144; BP diastolic 60–81; PULSE 66–76; RESP 14–18; TEMP 36.7–36.8; O2SAT 94–100
[2021-09-05 03:30] LABS: Basophils % 0.2 %; Eosinophils # 0.2 10^3/uL (0.0-0.8); Eosinophils % 5.3 %; Hematocrit 23.7 % (37.0-47.0); Hemoglobin 7.2 g/dL (11.5-15.3); Lymphocytes # 1.6 10^3/uL (0.8-4.8); Mean Corpuscular HGB Conc 30.4 g/dL (30.0-36.0); Mean Corpuscular Hemoglobin 26.3 pg (28.0-34.0); Mean Corpuscular Volume 86.5 fl (81-99); Mean Platelet Volume 8.5 fL (7.4-10.4); Monocytes # 0.3 10^3/uL (0.2-0.9); Monocytes % 7.6 %; Neutrophils # 2.15 10^3/uL (1.8-7.7); Neutrophils % 49.7 %; Nucleated Red Blood Cells % 0 %; Platelet Count 343 10^3/cmm (130-400); Red Blood Count 2.74 10^6/uL (4.1-5.3); Red Cell Distribution Width 15.3 % (12.1-15.1); White Blood Count 4.3 10^3/uL (4.0-10.0)
[2021-09-05] MEDS: oxyCODONE 5 mg IR Tab/Cap 10 MG PO ×4 (03:31→21:19)
[2021-09-05 06:26] LABS: Glucose Point of Care 118 mg/dL (70-110)
--- NOTE | 2021-09-05 08:20 | W.PM.NPUPNS ---
Subjective NPU Subjective: Interval history: She slept well last night with the Seroquel 200 mg. The pain in her side is better. She is complaining of muscle spasms and wanted something stronger than the Flexeril. He is still fairly depressed but denies suicidal ideation. She is feeling weak. Her hemoglobin and hematocrit are very low and I have asked her to be hospitalized for recommendation on how to treat that. I also called the surgeon and he is going to look at her stump again and make a decision about whether we should take out the jose carlos. We will increase her Cymbalta to 60 mg twice a day today. Mental Status Exam MSE Comments: This is an overweight white female in hospital scrubs with limited grooming and eye contact. With notable below-knee amputation on her left leg and a significant abrasion in the middle top of her forehead. No abnormal movements except for mild psychomotor retardation. Mostly cooperative with exam in no distress. Speech was decreased rate and volume. Mood described as depressed and anxious, affect mildly dysphoric. Thought process organized. Thought content: Patient denied suicidal ideation or homicidal ideation, there were no delusions reported or noted, she denied auditory or visual hallucinations. Attention and concentration were intact and memory appeared reliable but none were formally tested. She is alert and oriented x3. Insight and judgment are limited, and impulse control is limited versus impaired. Cognition: Patient Appearance: Appears Older than Age Level of Consciousness: Awake and Alert Patient Cognition Impaired: Yes Ability to Follow Directions: Poor Patient Orientation (long list): Person, Place, Time, Name, Birthday and Month Comprehension Ability: Mild Impairment Hallucination Type: None Delusion Description: Not Present and Grandiose Thought Process: Appropriate Affect: Affect Description: Appropriate and Flat Behavior: Patient Behavior: Appropriate, Cooperative and Withdrawn Speech Pattern: Appropriate and Clear Vitals/I&O/Wt Last Vital Signs Temp 98.1 F 09/05/21 05:38 Pulse 66 09/05/21 05:38 Resp 17 09/05/21 05:38 BP 103/60 09/05/21 05:38 Pulse Ox 94 09/05/21 05:38 Data NPU : 09/05/21 03:19 09/04/21 07:03 A&P Assessment and plan (1) Intentional self-harm: Status: Acute (2) Suicidal ideation: Status: Acute (3) Insomnia: Status: Acute Qualifiers: Insomnia type: due to medical condition Qualified Code(s): G47.01 - Insomnia due to medical condition (4) GERD (gastroesophageal reflux disease): Status: Acute Qualifiers: Esophagitis presence: without esophagitis Qualified Code(s): K21.9 - Gastro-esophageal reflux disease without esophagitis (5) ALEJANDRO (generalized anxiety disorder): Status: Acute (6) Noncompliance: Status: Acute (7) Dehiscence of amputation stump: Status: Acute (8) Foot osteomyelitis, right: Status: Acute Qualifiers: Osteomyelitis type: other chronic Qualified Code(s): M86.671 - Other chronic osteomyelitis, right ankle and foot (9) Diabetic ophthalmopathy: Status: Acute (10) Coronary artery disease: Status: Acute Qualifiers: Coronary Disease-Associated Artery/Lesion type: [place] artery [place] vs. transplanted heart: [place] heart Associated angina: without angina Qualified Code(s): I25.10 - Atherosclerotic heart disease of [place] coronary artery without angina pectoris (11) Diabetic neuropathy: Status: Acute Qualifiers: Diabetes mellitus type: type 1 Diabetes mellitus complication detail: diabetic polyneuropathy Qualified Code(s): E10.42 - Type 1 diabetes mellitus with diabetic polyneuropathy (12) Amputation of toe of right foot: Status: Acute Additional A&P Information This is a 40-year-old white female with a long history of mental health, trauma, likely cluster B personality disorder and medical issues with frequent hospitalizations and emergency room visits who presents endorsing that her pain has become significant enough that she rather . 1. Continue current medication. Increase Cymbalta 60 mg BID. Seroquel IR 200 mg at bedtime. 2. Continue every 15 minute checks for safety. 3. Encourage individual, group and milieu therapies. 4. Encourage sober living treatment after discharge at the highest level of care to which he is willing to commit. . Involuntary Hold Information 96 Hour Hold: 96 Hour Involuntary Admission: Yes 96 Hour Hold Ending Date: 09/04/21 96 Hour Hold Ending Time: 00:01 Attestations NPU Medical Necessity Statement*: Inpatient hospitalization is medically necessary and the clinically appropriate intervention at this time. We will initiate medications and make changes as indicated. 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 Code Acute Slab Tripper for [facility] Fwd Diagnoses Intentional self-harm Suicidal ideation R45.851 Insomnia G47.01 Insomnia type: due to medical condition GERD (gastroesophageal reflux disease) K21.9 Esophagitis presence: without esophagitis ALEJANDRO (generalized anxiety disorder) F41.1 Noncompliance Z91.19 Dehiscence of amputation stump T87.81 Foot osteomyelitis, right M86.671 Osteomyelitis type: other chronic Diabetic ophthalmopathy E11.39 Coronary artery disease I25.10 Coronary Disease-Associated Artery/Lesion type: [place] artery [place] vs. transplanted heart: [place] heart Associated angina: without angina Diabetic neuropathy E10.42 Diabetes mellitus type: type 1 Diabetes mellitus complication detail: diabetic polyneuropathy Amputation of toe of right foot S98.131A
[2021-09-05] MEDS: docusate sodium 100 mg Capsule PO ×2 (08:29→17:04)
[2021-09-05] MEDS: amlodipine 10 mg Tablet PO (08:30)
[2021-09-05] MEDS: tamsulosin 0.4 mg Capsule PO (08:30)
[2021-09-05] MEDS: metoprolol succinate ER (24 HR) 25 mg Tablet PO (08:30)
[2021-09-05] MEDS: hyDROXYzine 25 mg Capsule 50 MG PO ×2 (08:30→14:45)
[2021-09-05] MEDS: ondansetron 4 MG Tablet PO ×2 (08:30→17:59)
[2021-09-05] MEDS: acetaminophen 325 mg Tablet 650 MG PO (08:30)
[2021-09-05] MEDS: doxycycline 100 mg Tablet PO ×2 (08:31→17:04)
[2021-09-05] MEDS: cyclobenzaprine 10 mg Tablet PO ×2 (08:31→17:04)
[2021-09-05] MEDS: duloxetine 30 mg Capsule 60 MG PO ×2 (08:31→17:05)
[2021-09-05] MEDS: atorvastatin 40 mg Tablet PO (08:31)
[2021-09-05] MEDS: gabapentin 300 mg Capsule 600 MG PO ×4 (08:31→21:05)
--- NOTE | 2021-09-05 09:36 | PC.NURSE ---
Shortly after administration of all morning meds pt threw up everything. [id number] of phenegren IM
--- NOTE | 2021-09-05 09:41 | PC.NURSE ---
Patient has been withdrawn to room with N/V this morning. Took PRN meds without effect. Recieved 1x IM Phenergan. Plan to redraw H&H. Dr consulted another Dr about staple removal from leg. Dr will re-assess but reports that they will most likely remain in at this time. Plan to redraw H&H.
[2021-09-05] MEDS: promethazine 25 mg/mL SDV 1 mL IM (09:54)
[2021-09-05 10:14] LABS: Hematocrit 28.4 % (37.0-47.0); Hemoglobin 8.3 g/dL (11.5-15.3)
[2021-09-05] MEDS: ibuprofen 600 mg Tablet PO ×2 (10:58→17:04)
[2021-09-05 11:11] LABS: Glucose Point of Care 90 mg/dL (70-110)
[2021-09-05] MEDS: OLANZapine 5 mg ODT PO (11:22)
[2021-09-05 16:35] LABS: Glucose Point of Care 115 mg/dL (70-110)
--- NOTE | 2021-09-05 16:40 | PM.PN ---
Subjective Subjective: Interval history: Patient still continues to complain of pain, no fevers or chills, no drainage Vitals/I&O/Wt Last Vital Signs Temp 98.0 F 09/05/21 14:00 Pulse 76 09/05/21 14:00 Resp 14 09/05/21 14:34 BP 144/81 09/05/21 14:00 Pulse Ox 98 09/05/21 14:34 Physical Exam Narrative: EXAM NARRATIVE: Left BKA stump: Erythema is improved, incision well-healed, still has area of fluctuance Data : 09/05/21 10:00 09/04/21 07:03 A&P Assessment and plan (1) Below-knee amputation of left lower extremity: 41-year-old female status post BKA revision for osteomyelitis couple of weeks ago who is now developed a tender area near the staple line. The wound itself is healing well. CT performed 2 days ago showed postop changes without any evidence of osteomyelitis. WBC is normal and ultrasound showed a complex fluid collection most likely hematoma Complete course of Bactrim Remove jose carlos today Status: Acute Attestations Medical Necessity Statement*: As per primary 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 Code Acute Patient Services Clerk for [facility] Diagnoses Below-knee amputation of left lower extremity S88.112A
[2021-09-05] MEDS: sennosides-docusate Tablet 1 TAB PO (17:04)
[2021-09-05 20:47] LABS: Glucose Point of Care 192 mg/dL (70-110)
[2021-09-05] MEDS: ropinirole 1 mg Tablet PO (21:04)
[2021-09-05] MEDS: quetiapine 100 mg Tablet 200 MG PO (21:04)
[2021-09-05] MEDS: insulin glargine 100 units/1 mL 40 UNIT SUBCUT (21:05)
--- NOTE | 2021-09-06 00:54 | PC.NURSE ---
PRN Administration: Patient c/o pain 10/10 in leg and generalized. PRN Oxycodone given as ordered with noted effectiveness.
[2021-09-06] MEDS: blistex lip oint 7 gm Tube 1 APPLIC TOPICAL (02:09)
[2021-09-06 05:11] VITALS: RESP 17
[2021-09-06] MEDS: oxyCODONE 5 mg IR Tab/Cap 10 MG PO ×3 (05:11→23:33)
--- NOTE | 2021-09-06 05:26 | PC.NURSE ---
PRN administration Patient c/o pain 10/10 in left leg. PRN oxycodone PO given as ordered.
[2021-09-06 06:00] VITALS: BP 101/62; PULSE 68; RESP 20; TEMP 36.6; O2SAT 93
[2021-09-06 06:44] LABS: Glucose Point of Care 132 mg/dL (70-110)
--- NOTE | 2021-09-06 08:47 | W.PM.NPUPNS ---
Subjective NPU Subjective: Interval history: She slept well again last night. She says that she is feeling better today. Her side does not hurt too much. Her BKA stump is hurting. The jose carlos have been removed now. She continues to be anemic and we are awaiting the input from the hospitalist on treatment for that. She has not had any suicidal ideation recently. She is hoping that she will be ready to go home on Saturday. Mental Status Exam MSE Comments: This is an overweight white female in hospital scrubs with limited grooming and eye contact. With notable below-knee amputation on her left leg and a significant abrasion in the middle top of her forehead. No abnormal movements except for mild psychomotor retardation. Mostly cooperative with exam in no distress. Speech was decreased rate and volume. Mood described as depressed and anxious but better, affect mildly dysphoric. Thought process organized. Thought content: Patient denied suicidal ideation or homicidal ideation, there were no delusions reported or noted, she denied auditory or visual hallucinations. Attention and concentration were intact and memory appeared reliable but none were formally tested. She is alert and oriented x3. Insight and judgment are limited, and impulse control is limited versus impaired. Cognition: Patient Appearance: Appears Older than Age Level of Consciousness: Awake and Alert Patient Cognition Impaired: Yes Ability to Follow Directions: Poor Patient Orientation (long list): Person, Place, Time, Name, Birthday and Month Comprehension Ability: Mild Impairment Hallucination Type: None Delusion Description: Not Present and Grandiose Thought Process: Appropriate Affect: Affect Description: Appropriate Behavior: Patient Behavior: Appropriate Speech Pattern: Appropriate Vitals/I&O/Wt Last Vital Signs Temp 97.8 F 09/06/21 06:00 Pulse 68 09/06/21 06:00 Resp 20 H 09/06/21 06:00 BP 101/62 09/06/21 06:00 Pulse Ox 93 09/06/21 06:00 Data NPU : 09/05/21 10:00 09/04/21 07:03 A&P Assessment and plan (1) Intentional self-harm: Status: Acute (2) Suicidal ideation: Status: Acute (3) Insomnia: Status: Acute Qualifiers: Insomnia type: due to medical condition Qualified Code(s): G47.01 - Insomnia due to medical condition (4) GERD (gastroesophageal reflux disease): Status: Acute Qualifiers: Esophagitis presence: without esophagitis Qualified Code(s): K21.9 - Gastro-esophageal reflux disease without esophagitis (5) ALEJANDRO (generalized anxiety disorder): Status: Acute (6) Noncompliance: Status: Acute (7) Dehiscence of amputation stump: Status: Acute (8) Foot osteomyelitis, right: Status: Acute Qualifiers: Osteomyelitis type: other chronic Qualified Code(s): M86.671 - Other chronic osteomyelitis, right ankle and foot (9) Diabetic ophthalmopathy: Status: Acute (10) Coronary artery disease: Status: Acute Qualifiers: Coronary Disease-Associated Artery/Lesion type: [place] artery [place] vs. transplanted heart: [place] heart Associated angina: without angina Qualified Code(s): I25.10 - Atherosclerotic heart disease of [place] coronary artery without angina pectoris (11) Diabetic neuropathy: Status: Acute Qualifiers: Diabetes mellitus type: type 1 Diabetes mellitus complication detail: diabetic polyneuropathy Qualified Code(s): E10.42 - Type 1 diabetes mellitus with diabetic polyneuropathy (12) Amputation of toe of right foot: Status: Acute Additional A&P Information This is a 40-year-old white female with a long history of mental health, trauma, likely cluster B personality disorder and medical issues with frequent hospitalizations and emergency room visits who presents endorsing that her pain has become significant enough that she rather . 1. Continue current medication. Cymbalta 60 mg BID. Seroquel IR 200 mg at bedtime. 2. Continue every 15 minute checks for safety. 3. Encourage individual, group and milieu therapies. 4. Encourage sober living treatment after discharge at the highest level of care to which he is willing to commit. . Involuntary Hold Information 96 Hour Hold: 96 Hour Involuntary Admission: Yes 96 Hour Hold Ending Date: 09/04/21 96 Hour Hold Ending Time: 00:01 Attestations NPU Medical Necessity Statement*: Inpatient hospitalization is medically necessary and the clinically appropriate intervention at this time. We will initiate medications and make changes as indicated. 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 Code Acute Hand Splitter for g Fwd Diagnoses Intentional self-harm Suicidal ideation R45.851 Insomnia G47.01 Insomnia type: due to medical condition GERD (gastroesophageal reflux disease) K21.9 Esophagitis presence: without esophagitis ALEJANDRO (generalized anxiety disorder) F41.1 Noncompliance Z91.19 Dehiscence of amputation stump T87.81 Foot osteomyelitis, right M86.671 Osteomyelitis type: other chronic Diabetic ophthalmopathy E11.39 Coronary artery disease I25.10 Coronary Disease-Associated Artery/Lesion type: [place] artery [place] vs. transplanted heart: [place] heart Associated angina: without angina Diabetic neuropathy E10.42 Diabetes mellitus type: type 1 Diabetes mellitus complication detail: diabetic polyneuropathy Amputation of toe of right foot S98.753G
[2021-09-06] MEDS: gabapentin 300 mg Capsule 600 MG PO ×4 (09:21→21:07)
[2021-09-06] MEDS: doxycycline 100 mg Tablet PO ×2 (09:21→18:09)
[2021-09-06] MEDS: metoprolol succinate ER (24 HR) 25 mg Tablet PO (09:21)
[2021-09-06] MEDS: amlodipine 10 mg Tablet PO (09:21)
[2021-09-06] MEDS: duloxetine 30 mg Capsule 60 MG PO ×2 (09:22→18:09)
[2021-09-06] MEDS: atorvastatin 40 mg Tablet PO (09:22)
[2021-09-06] MEDS: docusate sodium 100 mg Capsule PO ×2 (09:22→18:08)
[2021-09-06] MEDS: sennosides-docusate Tablet 1 TAB PO ×2 (09:22→18:09)
[2021-09-06] MEDS: acetaminophen 325 mg Tablet 650 MG PO (09:22)
[2021-09-06] MEDS: cyclobenzaprine 10 mg Tablet PO (09:22)
[2021-09-06 10:57] VITALS: RESP 14; O2SAT 98
[2021-09-06] MEDS: tamsulosin 0.4 mg Capsule PO (11:03)
[2021-09-06 11:40] LABS: Glucose Point of Care 125 mg/dL (70-110)
--- NOTE | 2021-09-06 11:46 | PM.MISC ---
Miscellaneous Note Note: Follow-up: No leukocytosis, afebrile Repeat H&H showed hemoglobin is stable, no active signs of bleed no need of blood transfusion this is anemia of chronic disease For left BKA stump: Dr. Soto not planning for any intervention at this point, he has evaluated ultrasound and CT scan, he thinks it is postoperative hematoma Hemoglobin has stayed stable there is no acute drop, Plan I will repeat CBC and BMP tomorrow to monitor creatinine and H&H, continue doxycycline, In case of further worsening of pain or swelling please update general surgery
[2021-09-06] MEDS: ibuprofen 600 mg Tablet PO (12:36)
[2021-09-06] MEDS: OLANZapine 5 mg ODT PO (12:46)
[2021-09-06 14:00] VITALS: BP 105/67; PULSE 74; RESP 20; TEMP 36.6; O2SAT 100
[2021-09-06 16:33] LABS: Glucose Point of Care 116 mg/dL (70-110)
[2021-09-06] MEDS: ropinirole 1 mg Tablet PO (21:07)
[2021-09-06] MEDS: quetiapine 100 mg Tablet 200 MG PO (21:07)
[2021-09-06 21:11] LABS: Glucose Point of Care 149 mg/dL (70-110)
[2021-09-06] MEDS: insulin glargine 100 units/1 mL 40 UNIT SUBCUT (21:41)
[2021-09-06 21:45] VITALS: BP 115/76; PULSE 79; RESP 16; TEMP 36.7; O2SAT 100
[2021-09-06 23:33] VITALS: RESP 16
[2021-09-07] MEDS: hyDROXYzine 25 mg Capsule 50 MG PO ×4 (00:36→23:19)
[2021-09-07] MEDS: cyclobenzaprine 10 mg Tablet PO ×2 (00:36→18:29)
[2021-09-07] MEDS: ondansetron 4 MG Tablet PO ×2 (00:36→15:05)
--- NOTE | 2021-09-07 01:28 | PC.NURSE ---
PRN administration Patient c/o pain 8/10 in left BKA, given PRN oxycodone at approx 2330 with noted effectiveness. Patient was then assisted to take shower and ambulated independently with walker to and from shower room. Patient had noted increase in pain to left leg following shower and also c/o of nausea and anxiety. PRN cyclobenzaprine, ondansetron, and hydroxyzine given per patient request with noted effectiveness.
[2021-09-07 06:00] VITALS: BP 101/58; PULSE 78; RESP 16; TEMP 36.6; O2SAT 95
[2021-09-07 07:21] LABS: Glucose Point of Care 89 mg/dL (70-110)
[2021-09-07 07:22] LABS: Basophils % 0.7 %; Eosinophils # 0.2 10^3/uL (0.0-0.8); Eosinophils % 6.9 %; Hematocrit 24.9 % (37.0-47.0); Hemoglobin 7.4 g/dL (11.5-15.3); Lymphocytes # 0.8 10^3/uL (0.8-4.8); Lymphocytes % 29.1 %; Mean Corpuscular HGB Conc 29.7 g/dL (30.0-36.0); Mean Corpuscular Hemoglobin 26.1 pg (28.0-34.0); Mean Platelet Volume 8.7 fL (7.4-10.4); Monocytes # 0.3 10^3/uL (0.2-0.9); Monocytes % 9.7 %; Neutrophils # 1.51 10^3/uL (1.8-7.7); Neutrophils % 52.2 %; Nucleated Red Blood Cells % 0 %; Platelet Count 326 10^3/cmm (130-400); Red Blood Count 2.83 10^6/uL (4.1-5.3); Red Cell Distribution Width 15.3 % (12.1-15.1); White Blood Count 2.9 10^3/uL (4.0-10.0)
[2021-09-07 07:35] LABS: Anion Gap 17.5 (5-19); Blood Urea Nitrogen 22 mg/dL (6-20); Calcium 8.3 mg/dL (8.5-10.5); Carbon Dioxide 20 mmol/L (22-29); Chloride 105 mmol/L (98-107); Glomerular Filtration Rate 44.7 mL/min (90-130); Glucose 86 mg/dL (65-115); Osmolality Calculated 289 mOsm/kg (285-295); Potassium 4.5 mmol/L (3.5-5.1); Sodium 138 mmol/L (136-145)
[2021-09-07 08:06] VITALS: RESP 14; O2SAT 98
[2021-09-07] MEDS: sennosides-docusate Tablet 1 TAB PO ×2 (08:06→18:28)
[2021-09-07] MEDS: oxyCODONE 5 mg IR Tab/Cap 10 MG PO ×3 (08:06→23:19)
[2021-09-07] MEDS: doxycycline 100 mg Tablet PO ×2 (08:06→18:27)
[2021-09-07] MEDS: tamsulosin 0.4 mg Capsule PO (08:06)
[2021-09-07] MEDS: duloxetine 30 mg Capsule 60 MG PO ×2 (08:09→18:27)
[2021-09-07] MEDS: gabapentin 300 mg Capsule 600 MG PO ×4 (08:09→20:42)
[2021-09-07] MEDS: docusate sodium 100 mg Capsule PO ×2 (08:09→18:29)
[2021-09-07] MEDS: amlodipine 10 mg Tablet PO (08:09)
[2021-09-07] MEDS: metoprolol succinate ER (24 HR) 25 mg Tablet PO (08:09)
[2021-09-07] MEDS: atorvastatin 40 mg Tablet PO (08:09)
[2021-09-07] MEDS: OLANZapine 5 mg ODT PO ×2 (08:28→19:59)
[2021-09-07 11:34] LABS: Glucose Point of Care 110 mg/dL (70-110)
--- NOTE | 2021-09-07 12:17 | P.NPUPN_ITS ---
Subjective NPU Subjective: Interval history: She said that she is a little more anxious today. She does not know why. She said it could partially be related to going home but she does not think that is the major cause. She did not sleep well last night again. She has been getting nauseated from her doxycycline but agrees to continue taking it. The pain in her side is probably at baseline. I talked with Dr. Gonzalez who recommends another 6 days of doxycycline and he will order that. He also recommended some iron sulfate for her anemia. He said that she should take some softener because that can cause constipation. Mental Status Exam MSE Comments: This is an overweight white female in hospital scrubs with limited grooming and eye contact. With notable below-knee amputation on her left leg and a significant abrasion in the middle top of her forehead. No abnormal movements except for mild psychomotor retardation. Mostly cooperative with exam in no distress. Speech was normal rate and volume. Mood described as depressed and anxious but better, affect mildly dysphoric. Thought process organized. Thought content: Patient denied suicidal ideation or homicidal ideation, there were no delusions reported or noted, she denied auditory or visual hallucinations. Attention and concentration were intact and memory appeared reliable but none were formally tested. She is alert and oriented x3. Insight and judgment are limited, and impulse control is limited versus impaired. Cognition: Patient Appearance: Appears Older than Age Level of Consciousness: Awake and Alert Patient Cognition Impaired: Yes Ability to Follow Directions: Poor Patient Orientation (long list): Person, Place, Time, Name, Birthday and Month Comprehension Ability: Mild Impairment Hallucination Type: None Delusion Description: Not Present and Grandiose Thought Process: Appropriate Affect: Affect Description: Appropriate Behavior: Patient Behavior: Appropriate and Cooperative Speech Pattern: Appropriate Vitals/I&O/Wt Last Vital Signs Temp 98 F 09/07/21 06:00 Pulse 78 09/07/21 06:00 Resp 14 09/07/21 08:06 BP 101/58 09/07/21 06:00 Pulse Ox 98 09/07/21 08:06 Data NPU : 09/07/21 07:08 09/07/21 07:08 A&P Assessment and plan (1) Intentional self-harm: Status: Acute (2) Suicidal ideation: Status: Acute (3) Insomnia: Status: Acute Qualifiers: Insomnia type: due to medical condition Qualified Code(s): G47.01 - Insomnia due to medical condition (4) GERD (gastroesophageal reflux disease): Status: Acute Qualifiers: Esophagitis presence: without esophagitis Qualified Code(s): K21.9 - Gastro-esophageal reflux disease without esophagitis (5) ALEJANDRO (generalized anxiety disorder): Status: Acute (6) Noncompliance: Status: Acute (7) Dehiscence of amputation stump: Status: Acute (8) Foot osteomyelitis, right: Status: Acute Qualifiers: Osteomyelitis type: other chronic Qualified Code(s): M86.671 - Other chronic osteomyelitis, right ankle and foot (9) Diabetic ophthalmopathy: Status: Acute (10) Coronary artery disease: Status: Acute Qualifiers: Coronary Disease-Associated Artery/Lesion type: [place] artery [place] vs. transplanted heart: [place] heart Associated angina: without angina Qualified Code(s): I25.10 - Atherosclerotic heart disease of [place] coronary artery without angina pectoris (11) Diabetic neuropathy: Status: Acute Qualifiers: Diabetes mellitus type: type 1 Diabetes mellitus complication detail: diabetic polyneuropathy Qualified Code(s): E10.42 - Type 1 diabetes mellitus with diabetic polyneuropathy (12) Amputation of toe of right foot: Status: Acute Additional A&P Information This is a 40-year-old white female with a long history of mental health, trauma, likely cluster B personality disorder and medical issues with frequent hospitalizations and emergency room visits who presents endorsing that her pain has become significant enough that she rather . 1. Continue current medication. Cymbalta 60 mg BID. Seroquel IR 200 mg at bedtime. 2. Continue every 15 minute checks for safety. 3. Encourage individual, group and milieu therapies. 4. Encourage sober living treatment after discharge at the highest level of care to which he is willing to commit. . Involuntary Hold Information 96 Hour Hold: 96 Hour Involuntary Admission: Yes 96 Hour Hold Ending Date: 09/04/21 96 Hour Hold Ending Time: 00:01 Attestations U Medical Necessity Statement*: Inpatient hospitalization is medically necessary and the clinically appropriate intervention at this time. We will initiate medications and make changes as indicated. 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 Code Acute Search Engine Optimization Manager for [facility] Fwd Diagnoses Intentional self-harm Suicidal ideation R45.851 Insomnia G47.01 Insomnia type: due to medical condition GERD (gastroesophageal reflux disease) K21.9 Esophagitis presence: without esophagitis ALEJANDRO (generalized anxiety disorder) F41.1 Noncompliance Z91.19 Dehiscence of amputation stump T87.81 Foot osteomyelitis, right M86.671 Osteomyelitis type: other chronic Diabetic ophthalmopathy E11.39 Coronary artery disease I25.10 Coronary Disease-Associated Artery/Lesion type: [place] artery [place] vs. transplanted heart: [place] heart Associated angina: without angina Diabetic neuropathy E10.42 Diabetes mellitus type: type 1 Diabetes mellitus complication detail: diabetic polyneuropathy Amputation of toe of right foot S98.131A
[2021-09-07] MEDS: ibuprofen 600 mg Tablet PO ×2 (13:24→18:28)
[2021-09-07 13:32] LABS: Hematocrit 24.3 % (37.0-47.0); Hemoglobin 7.5 g/dL (11.5-15.3)
[2021-09-07 14:00] VITALS: BP 112/70; PULSE 71; RESP 18; TEMP 36.6; O2SAT 97
[2021-09-07 14:57] VITALS: RESP 16; O2SAT 98
[2021-09-07 16:14] LABS: Glucose Point of Care 112 mg/dL (70-110)
[2021-09-07 20:33] VITALS: BP 117/78; PULSE 66; RESP 17; TEMP 36.9; O2SAT 100
[2021-09-07] MEDS: quetiapine 100 mg Tablet 200 MG PO (20:42)
[2021-09-07] MEDS: insulin glargine 100 units/1 mL 40 UNIT SUBCUT (20:42)
[2021-09-07] MEDS: ropinirole 1 mg Tablet PO (20:42)
[2021-09-07 20:44] LABS: Glucose Point of Care 150 mg/dL (70-110)
[2021-09-07 23:19] VITALS: RESP 18
[2021-09-08] VITALS (7 sets, daily range): BP systolic 117–136; BP diastolic 77–78; PULSE 64–66; RESP 18; TEMP 36.6–36.9; O2SAT 100
--- NOTE | 2021-09-08 02:15 | PC.NURSE ---
Patient at nurses desk with complaints of pain and anxiety. Vistaril 50 mg po and Oxycodone 10mg po given. Both were effective.
[2021-09-08] MEDS: blistex lip oint 7 gm Tube 1 APPLIC TOPICAL ×2 (05:52→11:47)
[2021-09-08] MEDS: oxyCODONE 5 mg IR Tab/Cap 10 MG PO ×2 (05:55→12:28)
[2021-09-08 07:13] LABS: Glucose Point of Care 116 mg/dL (70-110)
[2021-09-08] MEDS: gabapentin 300 mg Capsule 600 MG PO ×2 (08:06→13:55)
[2021-09-08] MEDS: amlodipine 10 mg Tablet PO (08:07)
[2021-09-08] MEDS: doxycycline 100 mg Tablet PO (08:07)
[2021-09-08] MEDS: duloxetine 30 mg Capsule 60 MG PO (08:07)
[2021-09-08] MEDS: docusate sodium 100 mg Capsule PO (08:07)
[2021-09-08] MEDS: atorvastatin 40 mg Tablet PO (08:07)
[2021-09-08] MEDS: sennosides-docusate Tablet 1 TAB PO (08:08)
[2021-09-08] MEDS: hyDROXYzine 25 mg Capsule 50 MG PO (08:08)
--- NOTE | 2021-09-08 08:08 | PC.NURSE ---
pt c/o feeling anxious, requested anxiety medication this AM. 50mg hydroxyzine administered. per pt request
[2021-09-08] MEDS: tamsulosin 0.4 mg Capsule PO (08:09)
[2021-09-08] MEDS: metoprolol succinate ER (24 HR) 25 mg Tablet PO (08:09)
--- NOTE | 2021-09-08 09:55 | P.NPUDS_ITS ---
Diagnoses at Discharge Discharge Diagnosis (1) Intentional self-harm: Status: Acute (2) Suicidal ideation: Status: Acute (3) Insomnia: Status: Acute Qualifiers: Insomnia type: due to medical condition Qualified Code(s): G47.01 - Insomnia due to medical condition (4) GERD (gastroesophageal reflux disease): Status: Acute Qualifiers: Esophagitis presence: without esophagitis Qualified Code(s): K21.9 - Gastro-esophageal reflux disease without esophagitis (5) ALEJANDRO (generalized anxiety disorder): Status: Acute (6) Noncompliance: Status: Acute (7) Dehiscence of amputation stump: Status: Acute (8) Foot osteomyelitis, right: Status: Acute Qualifiers: Osteomyelitis type: other chronic Qualified Code(s): M86.671 - Other chronic osteomyelitis, right ankle and foot (9) Diabetic ophthalmopathy: Status: Acute (10) Coronary artery disease: Status: Acute Permanent problem details: hx of stenting Qualifiers: Coronary Disease-Associated Artery/Lesion type: [place] artery [place] vs. transplanted heart: [place] heart Associated angina: without angina Qualified Code(s): I25.10 - Atherosclerotic heart disease of [place] coronary artery without angina pectoris (11) Diabetic neuropathy: Status: Acute Qualifiers: Diabetes mellitus type: type 1 Diabetes mellitus complication detail: diabetic polyneuropathy Qualified Code(s): E10.42 - Type 1 diabetes mellitus with diabetic polyneuropathy (12) Amputation of toe of right foot: Status: Acute Reason for Visit Reason for Visit: SELF HARM COMBATIVE Brief History: History of Present Illness Cherrie Solomon is a 41 year old female who presented to the emergency department with the following report: Chief complaint: Psychiatric Symptoms Stated complaint: SELF HARM COMBATIVE Time Seen by Provider: 08/29/21 11:08 History of Present Illness: HPI narrative: HPI: [41]yo patient w/ hx of dep ression BIBA for suicidal ideation. Patient was found banging her head against the wall. EMS gave patient 250mg of IM ketamine to calm her down and stop self- harm/ On arrival, the patient is AAOx3 and cooperative with my evaluation. No focal complaints of chest pain, shortness of breath, palpitations, N/V, focal GI/ complaints. Denies HI currently. No complaints of hallucinations. Onset: acute Duration: ongoing Location: home Severity: severe Associated symptoms: Deny chest pain, dyspnea, nausea, rash, palpitations or vomiting. He was admitted to the neuropsychiatric unit for definitive treatment of those issues. He presents reporting that this is her first psychiatric hospitalization but she is known to this freelance copywriter through inpatient consult. Reports he had outpatient services at [facility] in [place] and reports that she take Cymbalta and Seroquel. She denies smoking cigarettes drinking alcohol, does report daily marijuana the other illicit drugs but does report getting pain medication and reports that he never been to rehab or had a DUI. She essentially reports that she is here for the same reason she was on the inpatient MedSurg unit when I saw her before which is being so depressed because her pain is not well managed. She has a abrasion on the middle of her forehead which she reports is from banging her head from frustration. She also showed me her thigh and for that the bruising that was notable on the right thigh related to taking a fork and hitting her leg but not piercing the skin. About the lack of expertise that the unit has in relation to pain management and that her best option to get her pain management would be returning to the pain management clinic. There is not to be any doctors in the hospital that are going to suggest that they had a better understanding of her situation and that her pain clinic does. She had not been taking her Cymbalta so we discussed the risk-benefit alternatives of restarting the Cymbalta and 20 mg twice a day with a plan to discharge at the 30 mg that she was taking.. An excerpt from the consult is included below for context. Though she has had other consultation contact later in the year last year. Hospital Course Hospital Course She slowly acclimated to the individual, group and milieu therapies provided. Seroquel was increased to 200 mg and Cymbalta was rapidly increased to 120 mg daily. Other medications were left unchanged. She tolerated these doses and showed steady improvement during her stay. She was able to contract for safety outside hospital prior to discharge. During the hospitalization, patient had routine laboratory studies which were within normal limits except for few outliers. Additionally there was a general medical evaluation which was also within normal limits and revealed no new acute processes. Discharge Summary: At the time of discharge, lethality was denied. Mood and anxiety were well managed. Patient endorsed a plan to follow-up with the aftercare recommendations of the treatment team. Patient was evaluated and deemed to be absent credible lethality, and had achieved the maximum benefit from an inpatient hospitalization, so was discharged. Involuntary Hold Information 96 Hour Hold: 96 Hour Involuntary Admission: Yes 96 Hour Hold Ending Date: 09/04/21 96 Hour Hold Ending Time: 00:01 Mental Status Exam MSE Comments: This is an overweight white female in hospital scrubs with limited grooming and eye contact. With notable below-knee amputation on her left leg and a significant abrasion in the middle top of her forehead. No abnormal movements except for mild psychomotor retardation. Mostly cooperative with exam in no distress. Speech was normal rate and volume. Mood described as depressed and anxious but better, affect mildly dysphoric. Thought process organized. Thought content: Patient denied suicidal ideation or homicidal ideation, there were no delusions reported or noted, she denied auditory or visual hallucinations. Attention and concentration were intact and memory appeared reliable but none were formally tested. She is alert and oriented x3. Insight and judgment are limited, and impulse control is limited versus impaired. Cognition: Patient Appearance: Appears Older than Age Level of Consciousness: Awake and Alert Patient Cognition Impaired: Yes Ability to Follow Directions: Poor Patient Orientation (long list): Person, Place, Time, Name, Birthday and Month Comprehension Ability: Mild Impairment Hallucination Type: None Delusion Description: Not Present and Grandiose Thought Process: Appropriate Affect: Affect Description: Appropriate and Calm Behavior: Patient Behavior: Appropriate and Cooperative Speech Pattern: Appropriate and Clear Discharge Data Data Completed and Pending: Completed Studies During Hospitalization Category Date Time Status CT abdomen pelvis wo con 06692 Urge nt Cat Scan 08/29/21 11:[address] head wo con* 7 0450 Urgent Cat Scan 08/29/21 11:[address] lower leg LT w o con* [id number] Routi ne Cat Scan 09/01/21 13:42 Completed US soft tissue/ex tremity 29504 Rout ine Ultrasound 09/04/21 19:05 Completed Pending at discharge Category Date Time Status Immunochemical Fe melinda OCB Routine Lab 09/07/21 10:58 Uncollected Labs from last 24 hours 09/08/21 09/07/21 09/07/21 07:09 20:40 16:10 Hgb Hct POC Glucose 116 H 150 H 112 H 09/07/21 09/07/21 09/07/21 13:20 11:31 11:20 Hgb 7.5 L Cancelled Hct 24.3 L Cancelled POC Glucose 110 Vitals: Last Vital Signs Temp 97.8 F 09/08/21 06:43 Pulse 64 09/08/21 06:43 Resp 18 09/08/21 06:43 BP 136/77 09/08/21 06:43 Pulse Ox 100 09/08/21 06:43 Discharge Plan Discharge Patient Disposition: Home Condition: Stable Prescriptions: New doxycycline monohydrate 100 mg tablet 100 mg PO BID 4 Days Qty: 8 RF: 0 Iron (ferrous sulfate) 325 mg (65 mg iron) tablet 325 mg PO DAILY 30 Days Qty: 30 RF: 0 Senna-S 8.6-50 mg tablet 1 tab-cap PO DAILY 30 Days Qty: 20 RF: 0 quetiapine 100 mg Tablet 200 mg PO BEDTIME 30 Days Qty: 60 RF: 0 oxycodone 5 mg Tablet 10 mg PO Q6H PRN (Reason: Severe Pain) Qty: 10 RF: 0 duloxetine 30 mg Capsule,Delayed Release(Dr/Ec) 60 mg PO BID 30 Days Qty: 120 RF: 0 Continued docusate sodium [Colace] 100 mg capsule 100 mg PO BID RF: 0 cyclobenzaprine 10 mg tablet 10 mg PO BID PRN (Reason: MUSCLE SPASMS) 30 Days Qty: 60 RF: 2 hydralazine 25 mg tablet 25 mg PO QID PRN (Reason: high blood pressure) 30 Days Qty: 120 RF: 2 spironolactone 25 mg tablet 25 mg PO BID 30 Days Qty: 60 RF: 2 potassium chloride 20 mEq tablet extended release 20 meq PO DAILY 30 Days Qty: 30 RF: 2 pantoprazole 40 mg tablet,delayed release (DR/EC) 40 mg PO DAILY 30 Days Qty: 30 RF: 2 metoclopramide HCl 10 mg tablet 10 mg PO Q6H PRN (Reason: nausea and vomiting) 30 Days Qty: 120 RF: 2 gabapentin 600 mg tablet 600 mg PO QID 30 Days Qty: 120 RF: 2 Lantus Solostar U-100 Insulin 100 unit/mL (3 mL) insulin pen 40 unit SUBCUT BEDTIME 30 Days Qty: 15 RF: 2 (DME) Comfort EZ Pen [place] 33 gauge x 1/4 needle See Rx Instructions .ROUTE .MEDSUPPLY Qty: 100 RF: 2 miscellaneous medical supply Misc 1 ea miscellaneous .COMPLEX Qty: 1 RF: 0 (DME) Blood Glucose Test Strip See Rx Instructions .Route Qty: 100 RF: 11 insulin aspart U-100 [Novolog Flexpen U-100 Insulin] 100 unit/mL (3 mL) insulin pen 10 unit SUBCUT TID MDD 30 units 30 Days Qty: 15 RF: 0 ondansetron 8 mg tablet,disintegrating 8 mg PO Q12H PRN (Reason: nausea and vomiting) Qty: 60 RF: 0 atorvastatin 40 mg tablet 40 mg PO DAILY RF: 0 flucytosine 500 mg capsule 2,500 mg PO Q6H RF: 0 tamsulosin 0.4 mg capsule 0.4 mg PO DAILY RF: 0 amlodipine 10 mg tablet 10 mg PO DAILY RF: 0 metoprolol succinate 25 mg tablet extended release 24 hr 25 mg PO DAILY RF: 0 ropinirole 1 mg tablet 1 mg PO BEDTIME RF: 0 oxycodone 5 mg tablet 5 - 10 mg PO Q6H PRN (Reason: Pain) Qty: 10 RF: 0 Discontinued duloxetine 30 mg capsule,delayed release(DR/EC) 30 mg PO BID 30 Days Qty: 60 RF: 2 quetiapine [Seroquel] 25 mg tablet 25 mg PO .at bedtime 30 Days Qty: 30 RF: 2 Discharge Orders: Discharge Order (Routine); Ordered 09/08/21 Ordered By: Kris Thompson Other Ambulatory Orders: Complete Blood Count w/Auto (Routine) Timeframe: 1 Week Location: Determined by Patient Ordered By: Gracia Gonzalez Referrals: [facility] [Outside] - 09/07/21 3:00 pm Skylar Melendez LPC [Therapist] - 09/11/21 8:30 am (September 07 on a at 3pm) Angelic Martinez MD [Primary Care Provider] - Discharge Diet: Regular Discharge Activity: Resume usual activity Patient Instructions: Opioid Safety Discharge Attestations NPU Time Spent in Discharge Care*: less than 30 min Specific Discharge Activities: Specific discharge activities: educating patient, discussing with rn field case manager/social workers/dc planners, documenting/other paperwork and evaluating patient/reviewing data Status at Discharge: Cognitive status at discharge: cognitively intact , Behavioral status at discharge: cooperative , 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 Code Acute Chg FW DC note Diagnoses Intentional self-harm Suicidal ideation R45.851 Insomnia G47.01 Insomnia type: due to medical condition GERD (gastroesophageal reflux disease) K21.9 Esophagitis presence: without esophagitis ALEJANDRO (generalized anxiety disorder) F41.1 Noncompliance Z91.19 Dehiscence of amputation stump T87.81 Foot osteomyelitis, right M86.671 Osteomyelitis type: other chronic Diabetic ophthalmopathy E11.39 Coronary artery disease I25.10 Coronary Disease-Associated Artery/Lesion type: [place] artery [place] vs. transplanted heart: [place] heart Associated angina: without angina Diabetic neuropathy E10.42 Diabetes mellitus type: type 1 Diabetes mellitus complication detail: diabetic polyneuropathy Amputation of toe of right foot S98.131A
[2021-09-08 11:39] LABS: Glucose Point of Care 118 mg/dL (70-110)
[2021-09-08] MEDS: ibuprofen 600 mg Tablet PO (11:47)
[2021-09-08] MEDS: OLANZapine 5 mg ODT PO (12:28)
--- NOTE | 2021-09-08 12:52 | PC.NURSE ---
pt c/o pain and agitation, zyprexa and oxycodone given to pt. will continue to monitor .
[2021-09-08] MEDS: cyclobenzaprine 10 mg Tablet PO (14:38)
== END 2021-09-08 15:45 | disposition home or self-care (01) | DRG 881 ==
LOC: ER 13:38 → NP 08-30 13:41
PROVIDERS: Internal Medicine; Psychiatry & Neurology Psychiatry; Student in an Organized Health Care Education/Training Program; Surgery; Admitting Provider Psychiatry & Neurology Psychiatry; Emergency Provider Emergency Medicine; PCP Family Medicine; Visit Provider Psychiatry & Neurology Psychiatry
DX: F32.A Depression, unspecified (principal); R45.851 Suicidal ideations; L76.32 Postprocedural hematoma of skin and subcutaneous tissue following other procedure; F41.1 Generalized anxiety disorder; S00.81XA Abrasion of other part of head, initial encounter; X83.8XXA Intentional self-harm by other specified means, initial encounter; G89.4 Chronic pain syndrome; G47.01 Insomnia due to medical condition; T87.89 Other complications of amputation stump; Y83.5 Amputation of limb(s) as the cause of abnormal reaction of the patient, or of later complication, without mention of misadventure at the time of the procedure; E10.43 Type 1 diabetes mellitus with diabetic autonomic (poly)neuropathy; K31.84 Gastroparesis; F60.89 Other specific personality disorders; E10.65 Type 1 diabetes mellitus with hyperglycemia; E10.22 Type 1 diabetes mellitus with diabetic chronic kidney disease; I12.9 Hypertensive chronic kidney disease with stage 1 through stage 4 chronic kidney disease, or unspecified chronic kidney disease; N18.2 Chronic kidney disease, stage 2 (mild); E10.39 Type 1 diabetes mellitus with other diabetic ophthalmic complication; H54.7 Unspecified visual loss; E10.42 Type 1 diabetes mellitus with diabetic polyneuropathy; D72.829 Elevated white blood cell count, unspecified; R29.6 Repeated falls; I25.10 Atherosclerotic heart disease of native coronary artery without angina pectoris; M79.605 Pain in left leg; F17.200 Nicotine dependence, unspecified, uncomplicated; D63.8 Anemia in other chronic diseases classified elsewhere; Z89.512 Acquired absence of left leg below knee; Z89.431 Acquired absence of right foot; Z95.5 Presence of coronary angioplasty implant and graft; Z86.31 Personal history of diabetic foot ulcer; Z79.4 Long term (current) use of insulin
CPT/HCPCS: 36415; 36416; 70450; 73700; 74176; 76882; 80048; 80053; 80306; 80307; 82962; 83735; 84439; 84443; 84703; 85014; 85018; 85025; 85651; 96372; 97116; 97150; 97161; 97165; J1200; J1630; J1815 ×2; J2060; J2550; J3490; Q0162

== ENCOUNTER 2021-09-09 18:15 | Inpatient (IN) | payer MEDICAID, SELFPAY ==
[2021-09-09 18:35] VITALS: BP 179/119; PULSE 118; RESP 32; TEMP 37; O2SAT 98; BMI 29.5
--- NOTE | 2021-09-09 18:42 | CTR_ITS ---
PROCEDURE INFORMATION: Exam: CT Head Without Contrast Exam date and time: 09/09/2021 6:42 PM Age: 41 years old Clinical indication: Injury or trauma; Other: Headbutt a wall; Blunt trauma (contusions or hematomas); Patient HX: Self inflicted hematoma to forehead w R faith bruising - PT was headbutting a wall; Additional info: Head injury, AMS TECHNIQUE: Imaging protocol: Computed tomography of the head without contrast. Radiation optimization: All CT scans at this facility use at least one of these dose optimization techniques: automated exposure control; mA and/or kV adjustment per patient size (includes targeted exams where dose is matched to clinical indication); or iterative reconstruction. COMPARISON: CT head wo con* [id number] 08/29/2021 12:52 PM RADIATION DOSE METRICS: Total DLP (mGy-cm): 786.52 FINDINGS: Brain: There is mild cerebral atrophy. No hemorrhage. Unremarkable white matter. No mass effect. Cerebral ventricles: No ventriculomegaly. Paranasal sinuses: Visualized sinuses are unremarkable. No fluid levels. Mastoid air cells: Visualized mastoid air cells are well aerated. Orbital cavity: Symmetric orbits. Vasculature: Intracranial atherosclerosis. Bones/joints: Unremarkable. No acute fracture. Soft tissues: Frontal scalp hematoma. CT/CT head wo con* [id number] IMPRESSION: Negative for intracranial injury.
--- NOTE | 2021-09-09 18:42 | ECG_ITS ---
[facility] Test Date: 2021-09-09 Pat Name: Cherrie Solomon Department: Room: Gender: Female Animal Ride Attendant: : 1980 Requested By: Pablito Duran Order Number: [id number] Jeff MD: Joseluis Tracy M.D. Measurements Intervals [place] Rate: 109 P: 28 CT: 164 QRS: 7 QRSD: 101 T: 56 QT: 339 QTc: 457 Interpretive Statements SINUS TACHYCARDIA ABNORMAL RHYTHM ECG Compared to ECG 01/21/2021 14:33:18 Sinus rhythm no longer present T-wave abnormality no longer present Electronically Signed On 09-10-2021 20:01:36 SCALLOP SHUCKER by Joseluis Tracy M.D. [email or web address]
[2021-09-09] MEDS: LORazepam 2 mg/mL INJ 1 mL IVP (19:05)
[2021-09-09] MEDS: haloperidol inj 5 mg/mL INJ 1 mL IVP ×2 (19:05→20:54)
[2021-09-09] MEDS: sodium chloride 0.9% 1,000 ML 999 ML IV (19:06)
--- NOTE | 2021-09-09 19:10 | ED.C_ITS ---
HPI - Psych General: Chief Complaint: Psychiatric Symptoms Stated Complaint: BACK PAIN Time Seen by Provider: 09/09/21 18:41 History of Present Illness: HPI Narrative: This is a 41-year-old female who left our neuropsychiatric unit yesterday. She had come in because she was banging her head against the wall, evidently due to uncontrolled chronic pain she had said. EMS was called her house again with the same complaint today. She was violent, thrashing around, banging her head on the wall. After being loaded into the ambulance, she proceeded to bang her head on the side railing and the wall of the ambulance. She was given ketamine in route for this. On my evaluation she is not answering questions. She is sitting up in the bed and three-point restraints (she has a lower extremity amputation) banging her head on the side railing. She did tell EMS that she wanted to . complaint: suicidal ideation and altered mental status Onset (ago): hour(s) Duration: constant History of same: Yes Relieving factors: none Exacerbating factors: none Context: not taking psychiatric medications Associated psychiatric symptoms: depression Associated symptoms: Reports other Treatments prior to arrival: physical restraints and chemical restraints Review of Systems General: Reports: ROS unobtainable due to medical condition [facility] ED PFSH: Medical History (Updated 09/09/21 @ 22:21 by Pablito Perry DO) Acute hyponatremia Acute renal failure Back pain C. 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 Nausea & vomiting Non-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 PTSD (post-traumatic stress disorder) Self-harming behavior Self-harming behavior Suicidal ideation Suicidal ideation Toe infection UTI (urinary tract infection) Surgical History (Updated 09/03/21 @ 19:09 by Onesimo Soto MD) Below-knee amputation of left lower extremity H/O esophagogastroduodenoscopy (12/31/20) Bile reflux gastritis, grade B esophagitis H/O exploratory laparotomy x 3 History of amputation of right forefoot Hx of cholecystectomy Previous section x 3 S/P coronary artery stent placement x 1 S/P percutaneous endoscopic gastrostomy (PEG) tube placement Family History Unknown Diabetes extensive, type II Other CHF (congestive heart failure) Social History Smoking and tobacco status: current every day smoker Quit status (tobacco): has quit using tobacco Former quit date comment: 15 yrs ago Alcohol intake: former Former alcohol use details: 15 yrs ago Household members: spouse Marital status: Sexually active: Yes (1, ) Female Reproductive History: Date of last menstrual period: 12/17/20 Spontaneous abortions: No Physical Exam Const: COMMON NORMALS: alert GENERAL APPEARANCE: combative and disheveled; not cooperative and not frail appearing ORIENTATION/CONSCIOUSNESS: Yes awake, Yes oriented to person and Yes oriented to place HENMT: COMMON NORMALS: Normal external nose present HEAD & SCALP: scalp tenderness and other (Hematoma with abrasion to frontal scalp) NOSE: Normal external nose present and Normal nares present TEETH & GINGIVA: Yes gingiva abnormal and Yes poor dentition Chest: COMMONS NORMALS: normal inspection of the chest Resp: COMMON NORMALS: clear to auscultation bilaterally EFFORT & INSPECTION: Yes tachypneic and No respiratory distress AUSCULTATION: clear to auscultation bilaterally Cardio: COMMON NORMALS: regular rhythm RATE: tachycardic RHYTHM: regular rhythm GI: COMMON NORMALS: Soft to palpation INSPECTION: No abdominal distension PALPATION: Yes Soft to palpation Neuro: SENSORIUM/ORIENTATION: Yes alert, Yes oriented to person and Yes oriented to place MOTOR EXAM: 5/5 motor strength present throughout Face to Face: Restrn/Seclusion Events leading up to initiation: Demonstrating self-destructive behavior (cutting, hitting estrada etc.) Evaluation of patient's immediate situation: Alert and oriented and Signs of psychological distress Patient reaction since intervention applied: Behaviors/threats have lessened, but still present Recent labs reviewed: Yes Review of medications: Yes Patient's current medical/behavioral condition: No new concerns since last ROS Need for restraint or seclusion is: Continued Attending notified: Attending completed assessment Course Consultations: Consultation #1: layne Time: 22:08 Vital Signs: Vital signs: Vital Signs Temperature 98.6 F 09/09/21 18:35 Pulse Rate 111 H 09/09/21 22:16 Respiratory Rate 17 09/09/21 22:16 Blood Pressure 180/64 09/09/21 22:16 Pulse Oximetry 98 09/09/21 22:16 MDM - Psych MDM Narrative: Medical decision making narrative: 41-year-old female with a history of self harming behavior, potentially as a pain medication seeking behavior. She has repeatedly struck her head on siderails, to the point of having to be chemically and physically restrained at this point in the ER. She has done similar things in the past. I spoke with psychiatry. They are willing to readmit to the psychiatry unit. 96-hour paperwork has been filed, as the patient had to be restrained. She is otherwise medically stable. She has a elevation in her alk phos acutely, but other labs are stable. Lab Data: Labs: Lab Results 09/09/21 09/09/21 09/09/21 20:28 20:28 21:02 WBC 8.1 10^3/uL 10^3/ uL (4.0-10.0) RBC 3.43 10^6/uL L 10 ^6/uL (4.1-5.3) Hgb 9.0 g/dL L g/dL (11.5-15.3) Hct 28.6 % L % (37.0-47.0) MCV 83.4 fl fl (81-99) MCH 26.2 pg L pg (28.0-34.0) MCHC 31.5 g/dL g/dL (30.0-36.0) RDW 15.8 % H % (12.1-15.1) Plt Count 378 10^3/cmm 10^3 /cmm (130-400) MPV 8.0 fL fL (7.4-10.4) Neut % (Auto) 86.6 % % Lymph % (Auto) 8.7 % % Millard % (Auto) 3.6 % % Eos % (Auto) 0.0 % % Baso % (Auto) 0.2 % % Neut # (Auto) 6.99 10^3/uL 10^3 /uL (1.8-7.7) Lymph # (Auto) 0.7 10^3/uL L 10^ 3/uL (0.8-4.8) Millard # (Auto) 0.3 10^3/uL 10^3/ uL (0.2-0.9) Eos # (Auto) 0.0 10^3/uL 10^3/ uL (0.0-0.8) Baso # (Auto) 0.0 10^3/uL 10^3/ uL (0.0-0.1) Nucleated RBC % (a uto) 0 % % Nucleated RBCs # 0.0 /100WBC /100W BC Sodium Potassium Chloride Carbon Dioxide Anion Gap BUN Creatinine GFR Calculation Glucose Calculated Osmolal ity Calcium Total Bilirubin AST ALT Alkaline Phosphata se Total Protein Albumin Globulin Urine Color Yellow (Yellow) Urine Appearance Clear (CLEAR) Urine pH 7 (5-7) Ur Specific Gravit y 1.005 (1.005-1.030) Urine Protein 1+ H (Negative) Urine Glucose (UA) Trace H (Normal) Urine Ketones Negative (Negative) Urine Blood Neg (Negative) Urine Nitrate Negative (Negative) Urine Bilirubin Neg (Negative) Urine Urobilinogen Norm mg/dL mg/dL (Negative) Ur Leukocyte Estephania ase Negative (Negative) Urine RBC 0-4 /hpf H /hpf (0-2) Urine WBC 0-4 /hpf H /hpf (0-5) Ur Squamous Epith Cells 0-4 /hpf H /hpf (0-5) Amorphous Sediment Not Reportable Urine Bacteria Trace /hpf /hpf (NONE) Salicylates Urine Opiates Scre en Negative ng/mL ng /mL (Negative) Acetaminophen Ur Barbiturates Sc reen Negative ng/mL ng /mL (Negative) Ur Phencyclidine S crn Negative ng/mL ng /mL (Negative) Ur Amphetamines Sc reen Negative ng/mL ng /mL (Negative) U Benzodiazepines Scrn Negative ng/mL ng /mL (Negative) Urine Cocaine Scre en Negative ng/mL ng /mL (Negative) U Marijuana (THC) Screen Positive ng/mL H ng/mL (Negative) Ethyl Alcohol 09/09/21 21:02 WBC RBC Hgb Hct MCV MCH MCHC RDW Plt Count MPV Neut % (Auto) Lymph % (Auto) Millard % (Auto) Eos % (Auto) Baso % (Auto) Neut # (Auto) Lymph # (Auto) Millard # (Auto) Eos # (Auto) Baso # (Auto) Nucleated RBC % (a uto) Nucleated RBCs # Sodium 137 mmol/L mmol/L (136-145) Potassium 4.6 mmol/L mmol/L (3.5-5.1) Chloride 103 mmol/L mmol/L (98-107) Carbon Dioxide 18 mmol/L L mmol/ L (22-29) Anion Gap 20.6 H (5-19) BUN 28 mg/dL H mg/dL (6-20) Creatinine 1.1 mg/dL H mg/dL (0.5-0.9) GFR Calculation 54.2 mL/min L mL/ min (90-130) Glucose 209 mg/dL H mg/dL (65-115) Calculated Osmolal ity 296 mOsm/kg H mOs m/kg (285-295) Calcium 9.9 mg/dL mg/dL (8.5-10.5) Total Bilirubin 0.2 mg/dL mg/dL (0.15-1.2) AST 32 U/L U/L (0-32) ALT 42 U/L H U/L (0-33) Alkaline Phosphata se 320 IU/L H IU/L (35-105) Total Protein 7.8 g/dL g/dL (6.6-8.7) Albumin 3.9 g/dL g/dL (3.5-5.2) Globulin 3.9 g/dL g/dL (1.3-4.6) Urine Color Urine Appearance Urine pH Ur Specific Gravit y Urine Protein Urine Glucose (UA) Urine Ketones Urine Blood Urine Nitrate Urine Bilirubin Urine Urobilinogen Ur Leukocyte Estephania ase Urine RBC Urine WBC Ur Squamous Epith Cells Amorphous Sediment Urine Bacteria Salicylates < 0.3 mg/dL L mg/ dL (3-10) Urine Opiates Scre en Acetaminophen < 5.0 ug/mL L ug/ mL (10-30) Ur Barbiturates Sc reen Ur Phencyclidine S crn Ur Amphetamines Sc reen U Benzodiazepines Scrn Urine Cocaine Scre en U Marijuana (THC) Screen Ethyl Alcohol < 10 mg/dL mg/dL (0-10) Discharge Plan Discharge Patient Disposition: Admitted As Inpatient Clinical Impression: Suicidal ideation Condition: Stable 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 Code ED Fitness Professional for Kim Fwd Exam Detailed
[2021-09-09 20:07] VITALS: BP 180/96; PULSE 105; RESP 18; O2SAT 97
[2021-09-09 20:49] LABS: Amphetamines Screen Urine Negative (Negative); Barbiturates Screen Urine Negative (Negative); Benzodiazepines Screen Urine Negative (Negative); Cocaine Screen Urine Negative (Negative); Opiate Screen Urine Negative (Negative); PCP Screen Urine Negative (Negative); THC Screen Urine Positive (Negative)
[2021-09-09 20:50] LABS: Add Urine Microscopic? YES; Bilirubin Urine Neg (Negative); Blood Urine Neg (Negative); Glucose Urine UA Trace (Normal); Ketones Urine Negative (Negative); Leukocyte Esterase Urine Negative (Negative); Nitrate Urine Negative (Negative); Protein Urine 1+ (Negative); Specific Gravity, Urine 1.005 (1.005-1.030); Urine Appearance Clear (CLEAR); Urine Color Yellow (Yellow); Urobilinogen Urine Norm (Negative); pH Urine 7 (5-7)
[2021-09-09 20:51] LABS: Add Urine Culture? No; Bacteria Urine TRACE /hpf; RBC Urine 0-4 /hpf (0-2); Squamous Epithelial Cell Urine 0-4 /hpf (0-5); WBC Urine 0-4 /hpf (0-5)
[2021-09-09 21:10] LABS: Basophils % 0.2 %; Hematocrit 28.6 % (37.0-47.0); Lymphocytes # 0.7 10^3/uL (0.8-4.8); Lymphocytes % 8.7 %; Mean Corpuscular HGB Conc 31.5 g/dL (30.0-36.0); Mean Corpuscular Hemoglobin 26.2 pg (28.0-34.0); Mean Corpuscular Volume 83.4 fl (81-99); Monocytes # 0.3 10^3/uL (0.2-0.9); Monocytes % 3.6 %; Neutrophils # 6.99 10^3/uL (1.8-7.7); Neutrophils % 86.6 %; Nucleated Red Blood Cells % 0 %; Platelet Count 378 10^3/cmm (130-400); Red Blood Count 3.43 10^6/uL (4.1-5.3); Red Cell Distribution Width 15.8 % (12.1-15.1); White Blood Count 8.1 10^3/uL (4.0-10.0)
[2021-09-09 21:30] LABS: Alanine Aminotransferase 42 U/L (0-33); Albumin Level 3.9 g/dL (3.5-5.2); Alkaline Phosphatase 320 IU/L (35-105); Blood Urea Nitrogen 28 mg/dL (6-20); Calcium 9.9 mg/dL (8.5-10.5); Carbon Dioxide 18 mmol/L (22-29); Chloride 103 mmol/L (98-107); Globulin 3.9 g/dL (1.3-4.6); Glomerular Filtration Rate 54.2 mL/min (90-130); Glucose 209 mg/dL (65-115); Osmolality Calculated 296 mOsm/kg (285-295); Sodium 137 mmol/L (136-145); Total Bilirubin 0.2 mg/dL (0.15-1.2); Total Protein 7.8 g/dL (6.6-8.7)
[2021-09-09 21:37] LABS: Acetaminophen < 5.0 ug/mL (10-30); Alcohol Level < 10 mg/dL (0-10); Anion Gap 20.6 (5-19); Aspartate Amino Transferase 32 U/L (0-32); Potassium 4.6 mmol/L (3.5-5.1); Salicylate < 0.3 mg/dL (3-10)
[2021-09-09 22:16] VITALS: BP 180/64; PULSE 111; RESP 17; O2SAT 98
[2021-09-09] MEDS: LORazepam 2 mg/mL INJ 1 mL 1 MG IVP (23:20)
[2021-09-09 23:34] VITALS: BP 190/106; PULSE 113; RESP 16; TEMP 36.4; O2SAT 100
[2021-09-10 00:33] VITALS: RESP 18
[2021-09-10] MEDS: oxyCODONE 5 mg IR Tab/Cap 10 MG PO ×3 (00:33→17:10)
[2021-09-10] MEDS: hyDROXYzine 25 mg Capsule 50 MG PO ×3 (01:09→17:10)
[2021-09-10] MEDS: ondansetron 4 MG Tablet 8 MG PO (03:16)
[2021-09-10 04:19] VITALS: RESP 17; BMI 29.5
--- NOTE | 2021-09-10 04:37 | PC.NURSE ---
Patient on the unit complaining of pain at an 8 in her right lower back radiating around her waist. Oxycodone 10mg po given for pain. This was not effective in an hour. She then wanted something for anxiety. Vistaril 50mg po was given. This was ineffective. Patient began to vomit several times. Zofran 8mg po was given. Patient is now resting quietly in her bed with her eyes closed.
[2021-09-10 07:25] LABS: Glucose Point of Care 207 mg/dL (70-110)
[2021-09-10 07:31] VITALS: RESP 16
[2021-09-10] MEDS: cyclobenzaprine 10 mg Tablet PO ×2 (07:31→20:05)
[2021-09-10] MEDS: oxyCODONE 5 mg IR Tab/Cap PO ×2 (07:31→08:04)
[2021-09-10] MEDS: haloperidol inj 5 mg/mL INJ 1 mL IM (07:49)
[2021-09-10] MEDS: diphenhydrAMINE 50 mg/mL SDV 1mL IM (07:49)
[2021-09-10] MEDS: LORazepam 2 mg/mL INJ 1 mL IM (07:49)
--- NOTE | 2021-09-10 07:50 | PC.NURSE ---
Patient is at the nurses station cringing in pain. It is so bad she began to hit her head against the glass window. Patient redirected back to her bed and within minutes she was back at the nurses statioin. Oxycodone 5 mg and flexeril 10mg po given for pain. Patient is agitated and disoriented. She is hitting herself in the head stating it hurts. Per physician orders the patient received a b52 IM in the right gluteal. Patient wheeled back to her room and put in bed.
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
[2021-09-10] MEDS: metoprolol succinate ER (24 HR) 25 mg Tablet PO (08:35)
[2021-09-10] MEDS: amlodipine 10 mg Tablet PO (08:36)
[2021-09-10] MEDS: tamsulosin 0.4 mg Capsule PO (08:36)
[2021-09-10] MEDS: pantoprazole DR 40 mg Tablet PO (08:36)
[2021-09-10] MEDS: ferrous sulfate EC 325 mg Tablet PO (08:36)
[2021-09-10] MEDS: docusate sodium 100 mg Capsule PO ×2 (08:36→17:11)
[2021-09-10] MEDS: duloxetine 30 mg Capsule 60 MG PO ×2 (08:36→17:10)
[2021-09-10] MEDS: atorvastatin 40 mg Tablet PO (08:36)
[2021-09-10] MEDS: gabapentin 300 mg Capsule 600 MG PO ×4 (08:36→20:05)
[2021-09-10] MEDS: lidocaine 5% Patch 1 PATCH TOPICAL (08:39)
[2021-09-10] MEDS: insulin lispro 100 unit/1 mL SUBCUT ×2 (10:32→11:36)
[2021-09-10 11:35] VITALS: RESP 17; O2SAT 98
[2021-09-10] MEDS: doxycycline 100 mg Tablet PO ×2 (11:35→20:05)
[2021-09-10 11:37] LABS: Glucose Point of Care 145 mg/dL (70-110)
[2021-09-10] MEDS: OLANZapine 5 mg ODT PO (14:35)
--- NOTE | 2021-09-10 14:42 | PC.NURSE ---
LATE ENTRY WHILE COMING OUT OF REPORT PATIENT WAS AT THE NURSES STATION BANGING HER HEAD ON THE LEDGE. GLENDY VO AND ADDISON WOOD WERE VERBALLY TRYING TO REDIRECT PATIENT. PATIENT WAS VERY UPSET BECAUSE SHE WAS IN SO MUCH PAIN. PATIENT WAS REDIRECTED BACK INTO HER ROOM VIA WHEELCHAIR. PATIENT BECOME AGITATED AGAIN PUNCHING HERSELF IN HER FACE. PATIENT'S HANDS WERE HELD USING A SAFE TECHNIQUE. DR. CAMERON ORDERED A B52 AND WAS GIVEN BY ADAN WOOD. PATIENT WAS THEN GIVEN OXY 5MG ONE TIME ORDER PER VERBAL FROM DR. CAMERON. GLENDY VO, ATUL WOOD, ADDISON WOOD AND MYSELF CONTINUED TO SIT WITH PATIENT UNTIL SHE CALMED DOWN. PATIENT WAS GIVEN A HEATING PAD MADE FROM HOT TOWELS AND WRAPPED IN A CHUCKS WITH A TOWEL AROUND IT AND A LIDOCAINE PATCH. WILL MONITOR FOR MEDICATION EFFECTIVENESS AND PAIN MANAGEMENT.
--- NOTE | 2021-09-10 14:51 | PC.NURSE ---
LATE ENTRY 09/10/21 @ 113 ADMINISTERED OXYCODONE 10 MG PO AND VISTARIL 50MG PO FOR INCREASING PAIN AND ANXIETY. WILL MONITOR FOR MEDICATION EFFECTIVENESS.
--- NOTE | 2021-09-10 14:54 | PC.NURSE ---
PATIENT WAS LYING IN BED GETTING AGITATED THAT HER PAIN WAS COMING BACK. HEATING PAD RE-HEATED AND ZYPREXA ZYDIS 5MG SUBLINGUAL ADMINISTERED FOR INCREASING AGITATION. WILL CONTINUE TO MONITOR PATIENT.
[2021-09-10] MEDS: ibuprofen 800 mg tablet PO (16:35)
[2021-09-10 17:10] VITALS: RESP 14; O2SAT 98
[2021-09-10 17:16] LABS: Glucose Point of Care 137 mg/dL (70-110)
[2021-09-10] MEDS: quetiapine 100 mg Tablet 200 MG PO (20:05)
[2021-09-10] MEDS: ropinirole 1 mg Tablet PO (20:05)
[2021-09-10 20:38] VITALS: BP 114/71; PULSE 84; RESP 17; TEMP 36.6; O2SAT 98
[2021-09-10 20:57] LABS: Glucose Point of Care 133 mg/dL (70-110)
[2021-09-10] MEDS: insulin glargine 100 units/1 mL 40 UNIT SUBCUT (20:57)
--- NOTE | 2021-09-10 21:26 | PC.NURSE ---
Patient in room, alert and oriented, calm and cooperative during assessment. Stated to this RN that pain became uncontrollable at home. I took my meds, the seroquel and oxycontin but the pain was so bad I began puking and couldn't hold any of my meds down. I think that's why it got so bad, i would take my meds and couldn't keep them down.
[2021-09-11] VITALS (9 sets, daily range): BP systolic 101–174; BP diastolic 63–90; PULSE 62–94; RESP 16–22; TEMP 36.5–36.8; O2SAT 92–96
[2021-09-11] MEDS: oxyCODONE 5 mg IR Tab/Cap 10 MG PO ×3 (05:21→19:16)
[2021-09-11 07:53] LABS: Glucose Point of Care 118 mg/dL (70-110)
[2021-09-11 07:53] LABS: Glucose Point of Care 71 mg/dL (70-110)
[2021-09-11] MEDS: tamsulosin 0.4 mg Capsule PO (08:38)
[2021-09-11] MEDS: duloxetine 30 mg Capsule 60 MG PO ×2 (08:39→18:09)
[2021-09-11] MEDS: pantoprazole DR 40 mg Tablet PO (08:40)
[2021-09-11] MEDS: atorvastatin 40 mg Tablet PO (08:40)
[2021-09-11] MEDS: amlodipine 10 mg Tablet PO (08:40)
[2021-09-11] MEDS: docusate sodium 100 mg Capsule PO ×2 (08:40→18:09)
[2021-09-11] MEDS: ferrous sulfate EC 325 mg Tablet PO (08:40)
[2021-09-11] MEDS: metoprolol succinate ER (24 HR) 25 mg Tablet PO (08:40)
[2021-09-11] MEDS: gabapentin 300 mg Capsule 600 MG PO ×4 (08:43→19:16)
[2021-09-11 11:20] LABS: Glucose Point of Care 143 mg/dL (70-110)
[2021-09-11] MEDS: doxycycline 100 mg Tablet PO (11:32)
[2021-09-11] MEDS: lidocaine 5% Patch 1 PATCH TOPICAL ×2 (11:33→22:00)
--- NOTE | 2021-09-11 12:01 | P.NPUPN_ITS ---
Subjective NPU Subjective: Interval history: She is much better today. She says that she slept fairly well last night. She says that the Seroquel 200 mg is not quite strong enough and she wakes up at about 3 AM. She would like to be increased to 300 mg. She has not had side effects from that. She has not had increased appetite. He says he smokes marijuana when she went home which is normal. She woke up at 3 AM and was worse. He tried to smoke some marijuana but it caused her to cough and she could not. She also started throwing. She said that she will try marijuana once he goes back home and see if that will help. Mental Status Exam MSE Comments: This is a 41-year-old female who appears somewhat older than her stated age. She is dressed in hospital scrubs and poorly tonio omed. psychomotor activity is mildly decreased decreased. Speech is at a regular rate and rhythm, normal volume, good articulation, not pressured. Alert and orientedX3. Attention and concentration she is focused on her pain and says only says that she wants to .. Memory is intact Mood is depressed. Affect is dysphoric. Thought process is logical and goal-directed. Thought content: Denies auditory and visual hallucinations. No delusions or paranoia are noted. She is constantly hitting herself if allowed and saying that she wants to . Fund of knowledge is average. Insight and judgment appear to be fair. Impulse control is improved. Cognition: Patient Appearance: Disheveled/Poor Hygiene and No Eye Contact Level of Consciousness: Combative, Inappropriate and Restless Patient Cognition Impaired: Yes Ability to Follow Directions: Fair Patient Orientation (long list): Person, Place, Time and Name Comprehension Ability: No Impairment Hallucination Type: None Thought Process: Indecisive Affect: Affect Description: Banks Behavior: Patient Behavior: Appropriate Speech Pattern: Appropriate Vitals/I&O/Wt Last Vital Signs Temp 97.7 F 09/11/21 06:00 Pulse 62 09/11/21 06:00 Resp 16 09/11/21 11:32 BP 108/66 09/11/21 06:00 Pulse Ox 92 09/11/21 06:00 Weight last 48 hrs Weight 90.718 kg Weight 90.718 kg Data NPU : 09/09/21 21:02 09/09/21 21:02 A&P Assessment and plan (1) Suicidal ideation: Status: Acute (2) Anemia of chronic disease: Status: Acute (3) Below-knee amputation of left lower extremity: Status: Acute (4) Insomnia: Status: Acute Qualifiers: Insomnia type: due to medical condition Qualified Code(s): G47.01 - Insomnia due to medical condition (5) GERD (gastroesophageal reflux disease): Status: Acute Qualifiers: Esophagitis presence: without esophagitis Qualified Code(s): K21.9 - [place] stro-esophageal reflux disease without esophagitis (6) ALEJANDRO (generalized anxiety disorder): Status: Acute (7) Diabetic neuropathy: Status: Acute Qualifiers: Diabetes mellitus type: type 1 Diabetes mellitus complication detail: diabetic polyneuropathy Qualified Code(s): E10.42 - Type 1 diabetes mellitus with diabetic polyneuropathy (8) Amputation of toe of right foot: Status: Acute (9) Suicide attempt: Status: Acute (10) Diabetic gastroparesis: Status: Chronic (11) Diabetes mellitus type 1: Status: Chronic Qualifiers: Diabetes mellitus complication status: with hyperglycemia Qualified Code(s): E10.65 - Type 1 diabetes mellitus with hyperglycemia Additional A&P Information This is a 41-year-old female with multiple admissions wanted to because of the pain Plan: 1. Continue current medication. Increase Seroquel to 300 mg at bedtime. 2. Continue every 15 minute checks for safety. 3. Encourage individual, group and milieu therapies. 4. Encourage sober living treatment after discharge at the highest level of care to which she is willing to commit. 5. We will monitor for safety for herself in the community prior to discharge. Involuntary Hold Information 96 Hour Hold: 96 Hour Involuntary Admission: Yes 96 Hour Hold Ending Date: 09/15/21 96 Hour Hold Ending Time: 00:01 Attestations NPU Medical Necessity Statement*: Inpatient hospitalization is medically necessary and the clinically appropriate intervention at this time. We will initiate medications and make changes as indicated. 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[employer] Fwd Diagnoses Suicidal ideation R45.851 Anemia of chronic disease D63.8 Below-knee amputation of left lower extremity S88.112A Insomnia G47.01 Insomnia type: due to medical condition GERD (gastroesophageal reflux disease) K21.9 Esophagitis presence: without esophagitis ALEJANDRO (generalized anxiety disorder) F41.1 Diabetic neuropathy E10.42 Diabetes mellitus type: type 1 Diabetes mellitus complication detail: diabetic polyneuropathy Amputation of toe of right foot S98.131A Suicide attempt T14.91XA Diabetic gastroparesis E11.43; K31.84 Diabetes mellitus type 1 E10.65 Diabetes mellitus complication status: with hyperglycemia
[2021-09-11] MEDS: hyDROXYzine 25 mg Capsule 50 MG PO ×2 (12:07→19:17)
[2021-09-11] MEDS: insulin lispro 100 unit/1 mL SUBCUT (13:18)
--- NOTE | 2021-09-11 14:44 | P.CONIM_ITS ---
Providers/Reason For Consult Consulting Physician/Specialty*: Clyde Lopez MD, hospitalist Reason for Consult*: Back and abdominal pain Attending Physician: Kris Thompson MD Primary Care Provider: Angelic Martinez MD History of Present Illness History of Present Illness Cherrie Solomon is a 41 year old female that is in the neuropsychiatric unit for suicidal ideation and self injuring behavior who I am consulted on for chronic abdominal pain. She reports she has had abdominal pain for many months although it is worse currently. She states is generated in her back and wraps around to her right upper abdomen. It does not cross midline. She reports she has been able to eat okay lately. Her last bowel movement was yesterday, and soft. No fever. She has had a previous kidney stone on the right, in [place]. She denies any recent dysuria, or fever. She has had a recent CT scan here demonstrating no obstruction and no evidence of stone, on August 29. Review of Systems General: Reports: 10 or more systems reviewed and unremarkable except in HPI and below Const: Denies: fever(s) Eyes: Denies: change in vision ENMT: Denies: throat pain Card: Denies: chest pain Resp: Denies: dyspnea GI: Reports: abdominal pain : Denies: flank pain Musc: Denies: neck pain Skin/Breast: Denies: rash Neuro: Denies: headache(s) Psych: Denies: anxiety Endo: Denies: polyuria Keith/Lymph: Denies: easy bruising All/Imm: Denies: urticaria Medications/Allergies Home Medications Medication Instructions Recorded Confirmed Last Taken Type cyclobenzaprine 10 mg tablet 10 mg PO BID PRN 30 Days #60 tab 07/03/21 09/10/21 Unknown Rx docusate sodium 100 mg capsule 100 mg PO BID 07/03/21 09/10/21 Unknown History gabapentin 600 mg tablet 600 mg PO QID 30 Days #120 tab 07/03/21 09/10/21 Unknown Rx hydralazine 25 mg tablet 25 mg PO QID PRN 30 Days #120 tab 07/03/21 09/10/21 Unknown Rx insulin glargine 100 unit/mL (3 40 unit SUBCUT BEDTIME 30 Days #15 07/03/21 09/10/21 Unknown Rx mL) subcutaneous pen ml metoclopramide HCl 10 mg tablet 10 mg PO Q6H PRN 30 Days #120 tab 07/03/21 09/10/21 Unknown Rx pantoprazole 40 mg tablet,delayed 40 mg PO DAILY 30 Days #30 tab 07/03/21 09/10/21 Unknown Rx release pen needle, diabetic 33 gauge x #100 ea 07/03/21 09/10/21 Unknown Rx 1/4 blood sugar diagnostic #100 ea 07/12/21 09/10/21 Unknown Rx ondansetron 8 mg disintegrating 8 mg PO Q12H PRN #60 tab 07/18/21 09/10/21 Unknown Rx tablet amlodipine 10 mg PO DAILY 08/29/21 09/10/21 Unknown History atorvastatin 40 mg PO DAILY 08/29/21 09/10/21 Unknown History metoprolol succinate 25 mg PO DAILY 08/29/21 09/10/21 Unknown History ropinirole 1 mg PO BEDTIME 08/29/21 09/10/21 Unknown History tamsulosin 0.4 mg PO DAILY 08/29/21 09/10/21 Unknown History ferrous sulfate [Iron (ferrous 325 mg PO DAILY 30 Days #30 tab 09/07/21 09/10/21 Unknown Rx sulfate)] doxycycline hyclate 100 mg PO Q12H 7 Days #14 tab 09/08/21 09/10/21 Unknown Rx duloxetine 60 mg PO BID 30 Days #120 cap 09/08/21 09/10/21 Unknown Rx oxycodone 10 mg PO Q6H PRN #10 tab 09/08/21 09/10/21 Unknown Rx quetiapine 200 mg PO BEDTIME 30 Days #60 tab 09/08/21 09/10/21 Unknown Rx sennosides-docusate sodium 1 tab-cap PO DAILY PRN 09/09/21 09/10/21 Unknown History [Senna-S] Allergies Allergy/AdvReac Type Severity Reaction Status Date / Time morphine Allergy ALGY-Difficulty Verified 09/09/21 18:35 Breathing Current Medications Generic Name Dose Route Start Last Admin Trade Name Freq PRN Reason Stop Dose Admin Amlodipine Besylate 10 mg 09/10/21 09:00 09/11/21 08:40 Amlodipine 10 Mg Tablet PO 10 mg DAILY DAWSON Administration Atorvastatin Calcium 40 mg 09/10/21 09:00 09/11/21 08:40 Atorvastatin 40 Mg Tablet PO 40 mg DAILY DAWSON Administration Cyclobenzaprine HCl 10 mg 09/09/21 23:56 09/10/21 20:05 Cyclobenzaprine 10 Mg Tablet PO 10 mg BID PRN Administration MUSCLE SPASMS Diphenhydramine HCl 50 mg 09/09/21 23:34 09/10/21 07:49 Diphenhydramine 50 Mg/Ml Sdv 1ml IM 50 mg Q4H PRN Administration Severe Aggression Docusate Sodium 100 mg 09/10/21 09:00 09/11/21 08:40 Docusate Sodium 100 Mg Capsule PO 100 mg BID DAWSON Administration Doxycycline Monohydrate 100 mg 09/09/21 23:45 09/11/21 11:32 Doxycycline 100 Mg Tablet PO 100 mg Q12H DAWSON Administration Duloxetine HCl 60 mg 09/10/21 09:00 09/11/21 08:39 Duloxetine 30 Mg Capsule PO 60 mg BID DAWSON Administration Ferrous Sulfate 325 mg 09/10/21 09:00 09/11/21 08:40 Ferrous Sulfate Ec 325 Mg Tablet PO 325 mg DAILY DAWSON Administration Gabapentin 600 mg 09/10/21 09:00 09/11/21 12:07 Gabapentin 300 Mg Capsule PO 600 mg QID DAWSON Administration Haloperidol Lactate 5 mg 09/09/21 23:34 09/10/21 07:49 Haloperidol Inj 5 Mg/Ml Inj 1 Ml IM 5 mg Q4H PRN Administration Severe Aggression Hydroxyzine Pamoate 50 mg 09/09/21 23:34 09/11/21 12:07 Hydroxyzine 25 Mg Capsule PO 50 mg Q6H PRN Administration ANXIETY Ibuprofen 800 mg 09/10/21 16:30 09/10/21 16:35 Ibuprofen 800 Mg Tablet PO 800 mg Q8H PRN Administration MODERATE PAIN Insulin Glargine 40 unit 09/10/21 21:00 09/10/21 20:57 Insulin Glargine 100 Units/1 Ml SUBCUT 40 unit BEDTIME DAWSON Administration Insulin Human Lispro 0 unit 09/10/21 08:00 09/11/21 13:18 Insulin Lispro 100 Unit/1 Ml SUBCUT 4 unit WM&BEDTIME DAWSON Administration Protocol Lidocaine 1 patch 09/11/21 11:30 09/11/21 11:33 Lidocaine 5% Patch TOPICAL 1 patch [id number] DAWSON Administration Lorazepam 2 mg 09/09/21 23:34 09/10/21 07:49 Lorazepam 2 Mg/Ml Inj 1 Ml IM 2 mg Q4H PRN Administration Severe Aggression Metoprolol Succinate 25 mg 09/10/21 09:00 09/11/21 08:40 Metoprolol Succinate Er (24 Hr) 25 Mg Tablet PO 25 mg DAILY DAWSON Administration Olanzapine 5 mg 09/09/21 23:34 09/10/21 14:35 Olanzapine 5 Mg Odt PO 5 mg Q4H PRN Administration Agitation/Psychosis Ondansetron HCl 8 mg 09/09/21 23:56 09/10/21 03:16 Ondansetron 4 Mg Tablet PO 8 mg Q12H PRN Administration nausea and vomiting Oxycodone HCl 10 mg 09/10/21 07:32 09/11/21 11:32 Oxycodone 5 Mg Ir Tab/Cap PO 10 mg Q6H PRN Administration Severe Pain Pantoprazole Sodium 40 mg 09/10/21 09:00 09/11/21 08:[address] 40 Mg Tablet PO 40 mg DAILY DAWSON Administration Ropinirole HCl 1 mg 09/10/21 21:00 09/10/21 20:05 Ropinirole 1 Mg Tablet PO 1 mg BEDTIME DAWSON Administration Tamsulosin HCl 0.4 mg 09/10/21 09:00 09/11/21 08:38 Tamsulosin 0.4 Mg Capsule PO 0.4 mg DAILY DAWSON Administration PFSH Acute PFSH: Medical History Acute hyponatremia Acute renal failure Back pain C. 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 Nausea & vomiting Non-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 PTSD (post-traumatic stress disorder) Self-harming behavior Self-harming behavior Suicidal ideation Suicidal ideation Toe infection UTI (urinary tract infection) Surgical History Below-knee amputation of left lower extremity H/O esophagogastroduodenoscopy (12/31/20) Bile reflux gastritis, grade B esophagitis H/O exploratory laparotomy x 3 History of amputation of right forefoot Hx of cholecystectomy Previous section x 3 S/P coronary artery stent placement x 1 S/P percutaneous endoscopic gastrostomy (PEG) tube placement Family History Unknown Diabetes extensive, type II Other CHF (congestive heart failure) Social History Smoking and tobacco status: current every day smoker Quit status (tobacco): has quit using tobacco Former quit date comment: 15 yrs ago Alcohol intake: former Former alcohol use details: 15 yrs ago Household members: spouse Marital status: Sexually active: Yes (1, ) Female Reproductive History: Spontaneous abortions: No Vitals/I&O/Wt Last Vital Signs Temp 98.2 F 09/11/21 13:55 Pulse 68 09/11/21 13:55 Resp 16 09/11/21 13:55 BP 101/63 09/11/21 13:55 Pulse Ox 95 09/11/21 13:55 Weight last 48 hrs Weight 90.718 kg Weight 90.718 kg Physical Exam Narrative: EXAM NARRATIVE: General exam is a white female, calm and conversant reporting her pain has been going on for several months but worse currently. She reports she is compliant with her medications, and is receiving them here. HEENT: Pupils equally round. Oropharynx clear. Old bruising is noted around the right eye, abrasion central forehead Neck is supple and no lymphadenopathy thyromegaly Cardiovascular regular rate and rhythm without murmur Lungs clear Abdomen is soft. Tenderness is present on the right side. No obvious organomegaly exam is deferred Extremities no cyanosis clubbing or edema. Amputation noted on the left, below the knee. Right lower extremity with multiple toe amputations and partial foot amputation. Skin no rash Neuro no focal deficits Data Other Data: Other data: Head CT no acute change on admission. Calcium 9.9, bilirubin 0.2, AST 32, ALT 42, alk phos 320. Albumin 3.9. Urinalysis 0-4 red blood cells 0-4 white cells. Urine drug screen positive for THC A&P Assessment and plan (1) Low back pain: Patient reports pain in her right lower back to right parathoracic area. Some of this discomfort seems to wrap around to her front, not crossing midline, affecting her upper abdomen. There is no evidence of rash, or concern for zoster. She denies any history of trauma. Thoracic and lumbar spine is visualized on a recent CT abdomen and pelvis and no obvious abnormalities. Slightly over 6 months ago she received a CT scan of her thoracic and lumbar spine not demonstrating any significant pathology. Her discomfort still could be a radiculopathy, but an MRI would be needed for evaluation. This can be done as an outpatient Physical therapy consultation secondary to her chronic pain would be warranted. She would benefit from pain clinic evaluation, as an outpatient She is on adequate dose of Neurontin currently. She is also on muscle relaxant as well as chronic narcotic. At this point I would not change these medications. Lidoderm patch is a good idea which is already been initiated. Status: Acute (2) Diabetes mellitus type 1: Continue current regimen Status: Chronic Qualifiers: Diabetes mellitus complication status: with hyperglycemia Qualified Code(s): E10.65 - Type 1 diabetes mellitus with hyperglycemia (3) Coronary artery disease: Continue current medications Status: Acute Qualifiers: Coronary Disease-Associated Artery/Lesion type: [place] artery [place] vs. transplanted heart: [place] heart Associated angina: without angina Qualified Code(s): I25.10 - Atherosclerotic heart disease of [place] coronary artery without angina pectoris Additional A&P Information Mild elevation of liver enzymes. Check hepatitis panel, repeat liver enzymes. Further evaluation may be warranted depending upon results. Multiple other medical problems as outlined in past medical history Thank you for this consultation. Consult Attestations Medical Necessity Statement: As per primary 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 Code Acute Waiter/Waitress Second Class for Kim Mitchell Diagnoses Low back pain M54.5 Diabetes mellitus type 1 E10.65 Diabetes mellitus complication status: with hyperglycemia Coronary artery disease I25.10 Coronary Disease-Associated Artery/Lesion type: [place] artery [place] vs. transplanted heart: [place] heart Associated angina: without angina
[2021-09-11] MEDS: cyclobenzaprine 10 mg Tablet PO (15:08)
[2021-09-11] MEDS: OLANZapine 5 mg ODT PO (15:53)
[2021-09-11 16:16] LABS: Glucose Point of Care 108 mg/dL (70-110)
[2021-09-11 16:41] LABS: Basophils % 0.4 %; Eosinophils # 0.1 10^3/uL (0.0-0.8); Eosinophils % 1.3 %; Hematocrit 26.9 % (37.0-47.0); Hemoglobin 8.2 g/dL (11.5-15.3); Lymphocytes # 1.4 10^3/uL (0.8-4.8); Lymphocytes % 31.7 %; Mean Corpuscular HGB Conc 30.5 g/dL (30.0-36.0); Mean Corpuscular Hemoglobin 26.3 pg (28.0-34.0); Mean Corpuscular Volume 86.2 fl (81-99); Mean Platelet Volume 8.2 fL (7.4-10.4); Monocytes # 0.5 10^3/uL (0.2-0.9); Monocytes % 10.7 %; Neutrophils # 2.46 10^3/uL (1.8-7.7); Nucleated Red Blood Cells % 0 %; Platelet Count 337 10^3/cmm (130-400); Red Blood Count 3.12 10^6/uL (4.1-5.3); White Blood Count 4.5 10^3/uL (4.0-10.0)
[2021-09-11 17:20] LABS: Alanine Aminotransferase 29 U/L (0-33); Albumin Level 3.4 g/dL (3.5-5.2); Alkaline Phosphatase 226 IU/L (35-105); Aspartate Amino Transferase 32 U/L (0-32); Blood Urea Nitrogen 26 mg/dL (6-20); Calcium 8.9 mg/dL (8.5-10.5); Carbon Dioxide 21 mmol/L (22-29); Chloride 102 mmol/L (98-107); Globulin 3.2 g/dL (1.3-4.6); Glomerular Filtration Rate 44.7 mL/min (90-130); Glucose 72 mg/dL (65-115); Osmolality Calculated 287 mOsm/kg (285-295); Sodium 137 mmol/L (136-145); Total Bilirubin 0.2 mg/dL (0.15-1.2); Total Protein 6.6 g/dL (6.6-8.7)
[2021-09-11 17:34] LABS: Hepatitis A Antibody IgM Non-Reactive (Nonreactive); Hepatitis B Core IgM Non-Reactive (Nonreactive); Hepatitis B Surface Antigen Non-Reactive (Nonreactive); Hepatitis C Virus Antibody Non-Reactive (Nonreactive)
[2021-09-11] MEDS: quetiapine 300 mg Tablet PO (19:17)
[2021-09-11] MEDS: ropinirole 1 mg Tablet PO (19:17)
[2021-09-11] MEDS: ondansetron 4 MG Tablet 8 MG PO (19:19)
--- NOTE | 2021-09-11 19:30 | PC.NURSE ---
AT 1900, PT WAS NOTED BANGING HER HEAD ON THE FLOOR BY THE BATHROOM. WHEN STAFF WENT TO INTERVENE, PT STATED IT HURTS, I CAN'T TAKE IT ANYMORE. I JUST WANT TO . STAFF WAS ABLE TO GET PT TO THE BED AND SCHEDULED HS MEDICATIONS OF GABAPENTIN 600MG, SEROQUEL 300MG, REQUIP 1MG WELL OXYCODONE 10MG AND VISTARIL 50MG WERE GIVEN AT THIS TIME. PT BEGAN PUNCHING HERSELF IN THE HEAD WITH BOTH FISTS. SECURITY ARRIVED TO ASSIST STAFF WITH PT SAFETY. 2 STAFF AND SECURITY REMAINING WITH PT TO PREVENT PT FROM DOING SELF HARM, DR CAMERON NOTIFIED OF PT'S BEHAVIOR. ORDERS RECEIVED AND IMPLEMENTED. SEE OTHER NOTES FROM OTHER STAFF.
[2021-09-11] MEDS: haloperidol inj 5 mg/mL INJ 1 mL IM (20:07)
[2021-09-11] MEDS: LORazepam 2 mg/mL INJ 1 mL IM ×2 (20:07→21:04)
[2021-09-11] MEDS: diphenhydrAMINE 50 mg/mL SDV 1mL IM (20:07)
[2021-09-11] MEDS: ziprasidone hcl 40 mg Capsule PO (21:28)
[2021-09-11 21:33] LABS: Glucose Point of Care 102 mg/dL (70-110)
[2021-09-11] MEDS: ziprasidone 20 mg/mL SDV 40 MG IM (23:13)
[2021-09-12] VITALS (12 sets, daily range): BP systolic 110–179; BP diastolic 74–106; PULSE 68–93; RESP 14–28; TEMP 36.6–37; O2SAT 98–100
--- NOTE | 2021-09-12 00:21 | PC.NURSE ---
2100 Pt Behavior On rounds, pt was on bed with several staff members around her including security. Pt began trying to crawl over right side bed rails and land in the floor. When prevented to do so by staff, pt began punching herself in her right eye. Pt was placed in intermittent physical restraint by staff, physician notified. Medications ordered. Metal bed frames removed from pt room for safety. Pt repeatedly attempted self harm and self mutilation during the interaction with her. Pt had banged her head against the wall, banged her head against the floor, bite the upper left arm soft tissue, kicked the foot of the bed, kicked the window sill with amputated extremity causing laceration to stump and amputated toes on right foot. Verbal deescalation was attempted by all staff involved. Pt repeatedly stated I'm in pain, I want pain medicine . PO Geodon was given to pt without incident, shortly after pt began putting her fingers down her throat to induce vomiting.
--- NOTE | 2021-09-12 00:38 | PC.NURSE ---
Nurse rounded on patient 09/12/21 0030, patient in 2 point hard restraints, nurse offered patient orange juice to drink, nurse toileted patient, nurse released patients wrist restraints one at a time and performed range of motion with patient and then reapplied wrist restraints. Nurse rounded on patient again at 0050, patient requesting for restraints to be released and requesting toileting again. Nurse assisted patient with toileting with bedpan, patient did void. Nurse provided veronique care for patient. Nurse then released patient's right wrist restraint for range of motion and patient struck herself in the face. Nurse and DIRECTOR OF MANAGED CARE reapplied right wrist restraint.
[2021-09-12] MEDS: cyclobenzaprine 10 mg Tablet PO ×2 (00:49→21:12)
[2021-09-12] MEDS: oxyCODONE 5 mg IR Tab/Cap 10 MG PO ×3 (00:49→19:14)
--- NOTE | 2021-09-12 00:49 | W.PM.NPUPNS ---
Subjective NPU Subjective: Interval history: came in for face to face for restraints Mental Status Exam MSE Comments: Up in bed resisting restraints. Vitals/I&O/Wt Last Vital Signs Temp 97.9 F 09/11/21 20:30 Pulse 94 09/11/21 20:30 Resp 20 H 09/11/21 20:30 BP 174/74 09/11/21 20:30 Pulse Ox 96 09/11/21 20:30 Weight last 48 hrs Weight 90.718 kg Data NPU : 09/11/21 16:28 09/11/21 16:28 A&P Additional A&P Information requires restraints. hitting self when not restrained. Involuntary Hold Information 96 Hour Hold: 96 Hour Involuntary Admission: Yes 96 Hour Hold Ending Date: 09/15/21 96 Hour Hold Ending Time: 00:01 Attestations NPU Medical Necessity Statement*: Inpatient hospitalization is medically necessary and the clinically appropriate intervention at this time. We will initiate medications and make changes as indicated. 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 Code Acute Vitamin Manager for Kim Mitchell
--- NOTE | 2021-09-12 00:51 | PC.NURSE ---
Physician Physician at bedside for [id number] evaluation. Pt in restraint bed with 1:1 at bedside to prevent self harm. Pt has been reoriented verbally several times that self mutilating behavior is the reason she is in restraints. When right leg and wrist released from restraints for trial, pt attempted to fall in the floor. Pt replaced back in 3 point restraint and physician at bed side to reevaluate. New medication orders given.
[2021-09-12] MEDS: LORazepam 2 mg/mL INJ 1 mL IM ×4 (01:06→23:31)
[2021-09-12] MEDS: OLANZapine 5 mg ODT PO (01:06)
--- NOTE | 2021-09-12 01:39 | PC.NURSE ---
0139 Pt remains in restraints at this time. Pt not following directions. Pt told to refrain from destructive behavior and she will be released. Pt repeated back to me the directions. Pt then rocks the restraint bed side to side in attempt to tip it over. Pt repeating this is giving me PTSD. I'll have a panic attack. Its bring me back to my childhood adoption . If you release me I'll be a good girl this time, Eri . Pt redirected multiple times. Pt is a 2:1 in 3 point restraint at this time with bizarre erratic behavior. Vital signs remain stable.
[2021-09-12] MEDS: LORazepam 2 mg/mL INJ 1 mL (03:40)
--- NOTE | 2021-09-12 06:02 | PC.NURSE ---
Upon leaving report at 1924 the patient was in her room, sitting on her bed hitting herself in the head with her fists. In the room there was another 2 nurses attempting to redirect the patient and protect the patient from harm. The patient received Seroquel, Requip, Gabapentin, Vistaril, and Zofran at 191. The patient continued to try to harm herself stating she was in pain and just wanted to . At this point the 2 nurses were holding the arms of the patient. She was not cooperating with the staff to stay safe. Security came to help hold the patient and at that point it took 3 staff to brace the patient from causing any harm to herself. At 2006 the patient received Ativan 2 mg, Haldol 5 mg, and Benadryl 50 mg (B52) IM for severe agitation and aggression towards herself. The change house attendant came to the floor and suggested that we put the patient on her mattress on the floor due to her fall risk. (Patient with a r bka) Per Dr Thompson the patient received lorazepam 2mg IM at 2103 for uncontrolled agitation/aggression. The patient continued to flail, kick her leg, bite herself and punch herself unless restrained by 2-3 staff. An order was received to give the patient Geodon 40 mg po. This was done. The patient then was witnessed gagging herself with her fingers until she vomited and the blue pill was amongst the emesis. At this point an order was given by Dr Thompson to use the restraint bed and to medicate the patient with Geodon 40mg IM x one. This was at 2312. The patient was placed in 3 point restraints on the bed with 2 staff positioned for safety. The patient began to rock and was sitting up putting strain on her hands. She would not lay down. She hollered out HELP several times and was pleading and begging to be released. Per Dr. Thompson try to give the patient pain medication. While sitting up and assistance the patient received Oxycodone 10mg po and a Flexeril 10 mg po at 9. This was followed by Zyprexa 5 mg po and Lorazepam 2mg IM at 010. The patient was not affected by any of this medication. We attempted 3 x's to release one point of the restraint. When we released her right leg she kept trying to swing herself off of the bed. When we released her left arm she kept tryng to release her other restraints or would go to hitting herself again. At 0320 the patient finally laid back down on the bed. She appeared to resting finally. The change house attendant came on the floor and attempts were made to release the patient after she had Lorazepam 2mg IM per Dr. Thompson. The medication was given and the patient was placed in room 170. There is a one on one sitter with the patient to protect from self mutilation.
--- NOTE | 2021-09-12 07:06 | PC.NURSE ---
shift summary/pt behavior This nurse responded to room 150-2 after shift report to assist staff with patient who was trying to self harm. pt was stating she wanted to and was hitting her head with her fists, banging her head on the estrada and window randy, pt injured her left stump and her middle toe on right foot by kicking estrada, pt bit herself on the left upper arm, staff made many attempts to redirect pt behavior but pt continued self harm behaviors, pt was given medication for agitation/aggression by kiln charger nurse but meds were ineffective, pt purged and vomited her PO medication. Nurse witnessed the patient gagging herself with her fingers to self induce vomiting, pt attempted this purging behavior several times and nurse would intervene and redirect. pt was placed in 3 point restraints at 2345. pt was rocking the restraint bed attempting to flip it over, any time an extremity was released to provide range of motion the patient would attempt self harming behaviors or attempt to free other extremities from restraints. Patient had 1:1 RADIO ASSEMBLER sitter and this nurse began 2:1 observation with patient at 0230. Nurse removed left wrist restraint for ROM and pt struck herself in the face with her first. Nurse and RADIO ASSEMBLER reapplied wrist restraint and redirected patient. patient began screaming that she wanted a shower, nursing staff explained to patient that due to her self harming behaviors we could not un-restrain her as long as she was a danger to herself. 0249 the patient urinated on herself and stated Now you have to get me up for a shower. Nursing staff removed soiled clothing, provided veronique care, offered bed douglas, and applied brief to patient. While cleaning and changing the patient she would kick and thrash her legs, she would also stomp her left stump against the bed. 0257 right wrist restraint was removed and ROM offered, restraint reapplied at 0300 due to pt self harming behaviors and attempting to release other extremities. 0320 pt requested toileting and while staff was offering bed douglas patient attempted to throw legs off one side of the bed. 0345 patient was resting calmly and taken out of restraints and taken to room 170 and placed back on 1:1 observation with this nurse. pt rested calmly in bed until 0449 when she stated to nurse that she needed to use the bathroom, as nurse walked towards the bed to assist her the patient slid herself into the floor and crawled on all fours and urinated on the floor. Nurse and RADIO ASSEMBLER washed patient and applied a clean pull up and assisted pt back to bed. pt rested calmly in bed until 0630 when nurse observed pt putting her fingers in her mouth, gagging herself, attempting to throw up. Nurse intervened by blocking patient's hands and redirected pt. Patient stated she vomits every day and that she cant help it. Patient would put her head under the blankets in bed and attempt to gag herself out of view of the nurse, nurse would remove blanket and block patients hands. next shift sitter in room at 0650 and bedside report given.
--- NOTE | 2021-09-12 08:42 | PC.PT ---
Pt was attempted to be evaluated. Nursing was consulted and they recommended holding PT at this time because she had a very rough night and she is now calm. The physician was spoken with as well and he agreed she had a very rough night and we should wait on PT eval at this time. Will reattempt 09-13-21 if she is able.
[2021-09-12] MEDS: lidocaine 5% Patch 1 PATCH TOPICAL ×2 (09:18→21:34)
[2021-09-12] MEDS: atorvastatin 40 mg Tablet PO (09:19)
[2021-09-12] MEDS: amlodipine 10 mg Tablet PO (09:19)
[2021-09-12] MEDS: docusate sodium 100 mg Capsule PO ×2 (09:19→19:09)
[2021-09-12] MEDS: duloxetine 30 mg Capsule 60 MG PO ×2 (09:19→19:08)
[2021-09-12] MEDS: pantoprazole DR 40 mg Tablet PO (09:19)
[2021-09-12] MEDS: tamsulosin 0.4 mg Capsule PO (09:19)
[2021-09-12] MEDS: gabapentin 300 mg Capsule 600 MG PO ×4 (09:19→21:09)
[2021-09-12] MEDS: ferrous sulfate EC 325 mg Tablet PO (09:19)
[2021-09-12] MEDS: metoprolol succinate ER (24 HR) 50 mg Tablet PO (09:19)
--- NOTE | 2021-09-12 10:37 | PM.PN ---
Subjective Subjective: Interval history: Patient not seen today. Chart review done. Blood pressures been running high. Medications: Reviewed: Yes Vitals/I&O/Wt Last Vital Signs Temp 97.8 F 09/12/21 01:30 Pulse 93 09/12/21 02:30 Resp 26 H 09/12/21 02:30 BP 171/105 09/12/21 02:30 Pulse Ox 100 09/12/21 02:30 Physical Exam Narrative: EXAM NARRATIVE: Not examined Data : 09/11/21 16:28 09/11/21 16:28 A&P Assessment and plan (1) Low back pain: Patient reports pain in her right lower back to right parathoracic area. Some of this discomfort seems to wrap around to her front, not crossing midline, affecting her upper abdomen. There is no evidence of rash, or concern for zoster. She denies any history of trauma. Thoracic and lumbar spine is visualized on a recent CT abdomen and pelvis and no obvious abnormalities. Slightly over 6 months ago she received a CT scan of her thoracic and lumbar spine not demonstrating any significant pathology. Her discomfort still could be a radiculopathy, but an MRI would be needed for evaluation. This can be done as an outpatient Physical therapy consultation secondary to her chronic pain would be warranted. This was ordered She would benefit from pain clinic evaluation, as an outpatient She is on adequate dose of Neurontin currently. She is also on muscle relaxant as well as chronic narcotic. At this point I would not change these medications. Lidoderm patch is a good idea which is already been initiated. Status: Acute (2) Diabetes mellitus type 1: Blood sugar slightly low this morning. Reduce Lantus to 30 units. Status: Chronic Qualifiers: Diabetes mellitus complication status: with hyperglycemia Qualified Code(s): E10.65 - Type 1 diabetes mellitus with hyperglycemia (3) Coronary artery disease: Continue current medications Status: Acute Qualifiers: Coronary Disease-Associated Artery/Lesion type: [place] artery [place] vs. transplanted heart: [place] heart Associated angina: without angina Qualified Code(s): I25.10 - Atherosclerotic heart disease of [place] coronary artery without angina pectoris Plan Hypertension. Increase metoprolol. Attestations Medical Necessity Statement*: As per primary 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 Code Acute Coal Bagger for Kim Mitchell Diagnoses Low back pain M54.5 Diabetes mellitus type 1 E10.65 Diabetes mellitus complication status: with hyperglycemia Coronary artery disease I25.10 Coronary Disease-Associated Artery/Lesion type: [place] artery [place] vs. transplanted heart: [place] heart Associated angina: without angina
[2021-09-12] MEDS: ondansetron 2 mg/ML SDV 2 mL 4 MG IM (11:27)
[2021-09-12] MEDS: doxycycline 100 mg Tablet PO ×2 (11:28→23:31)
[2021-09-12 11:51] LABS: Glucose Point of Care 235 mg/dL (70-110)
--- NOTE | 2021-09-12 11:52 | W.PM.NPUPNS ---
Subjective NPU Subjective: Interval history: She has been given 4 doses of Ativan 2 mg IM. 2 already today. She required restraints for a few hours last night because she continues to hurt herself and banging her head. She complains that the pain is unbearable and that she wants to . She is also been throwing up. Nurses report that the emesis is frequently light coffee grounds. She has been given IM Zofran. She has been better for the last 7 or 8 hours. Mental Status Exam MSE Comments: This is a 41-year-old overweight female who has been in significant distress because of pain but is currently sleeping. She requires large doses of medications to sedate her so that she does not belong herself. psychomotor activity currently normal for someone who is asleep. Speech is at a regular rate and rhythm, normal volume, good articulation, not pressured. Alert, orientation was not tested Attention and concentration probably normal. Memory is intact not formally tested Mood is depressed. Affect is dysphoric. Thought process is logical and goal-directed. Thought content: Denies auditory and visual hallucinations. No delusions or paranoia are noted. Says she wants to when she is awake and in pain. No homicidal ideation Fund of knowledge is probably average. Insight and judgment appear to be poor. Impulse control is very poor. Vitals/I&O/Wt Last Vital Signs Temp 97.8 F 09/12/21 01:30 Pulse 93 09/12/21 02:30 Resp 14 09/12/21 11:35 BP 171/105 09/12/21 02:30 Pulse Ox 98 09/12/21 11:35 Data NPU : 09/11/21 16:28 09/11/21 16:28 A&P Assessment and plan (1) Depression: Status: Acute Qualifiers: Depression Type: unspecified Qualified Code(s): F32.9 - Major depressive disorder, single episode, unspecified (2) Suicidal ideation: Status: Acute (3) Anemia of chronic disease: Status: Acute (4) Below-knee amputation of left lower extremity: Status: Acute (5) Diabetic gastroparesis: Status: Chronic (6) Diabetes mellitus type 1: Status: Chronic Qualifiers: Diabetes mellitus complication status: with hyperglycemia Qualified Code(s): E10.65 - Type 1 diabetes mellitus with hyperglycemia Plan This is a 41-year-old female with multiple admissions wanted to because of the pain Plan: 1.? Continue current medication.? We will continue to get as IM Ativan to maintain sedation and gradually decrease. 2.? Continue every 15 minute checks for safety. 3.? Encourage individual, group and milieu therapies. 4.? Encourage sober living treatment after discharge at the highest level of care to which she is willing to commit. 5.? We will monitor for safety for herself in the community prior to discharge. Involuntary Hold Information 96 Hour Hold: 96 Hour Involuntary Admission: Yes 96 Hour Hold Ending Date: 09/15/21 96 Hour Hold Ending Time: 00:01 Attestations NPU Medical Necessity Statement*: Inpatient hospitalization is medically necessary and the clinically appropriate intervention at this time. We will initiate medications and make changes as indicated. She will be in the hospital for over 2 midnights. Likely length of stay 4-6 days 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 Code Acute Acid Correction Hand for Kim Cedillod Diagnoses Depression F32.9 Depression Type: unspecified Suicidal ideation R45.851 Anemia of chronic disease D63.8 Below-knee amputation of left lower extremity S88.112A Diabetic gastroparesis E11.43; K31.84 Diabetes mellitus type 1 E10.65 Diabetes mellitus complication status: with hyperglycemia
[2021-09-12] MEDS: insulin lispro 100 unit/1 mL SUBCUT (12:17)
[2021-09-12 20:53] LABS: Glucose Point of Care 93 mg/dL (70-110)
[2021-09-12] MEDS: quetiapine 300 mg Tablet PO (21:10)
[2021-09-12] MEDS: ropinirole 1 mg Tablet PO (21:10)
--- NOTE | 2021-09-13 03:54 | PC.NURSE ---
Addendum entered by Lelia Alexander RN 09/13/21 04:29: Patient c/o pain at 0400, given PRN oxycodone PO as ordered with noted effectiveness. Original Note: PRN ADMIN At HS, patient c/o of continuous back pain, given PRN cyclobenzaprine as ordered with noted effectiveness.
[2021-09-13 03:59] VITALS: RESP 18
[2021-09-13] MEDS: oxyCODONE 5 mg IR Tab/Cap 10 MG PO ×3 (03:59→18:01)
[2021-09-13] MEDS: LORazepam 2 mg/mL INJ 1 mL IM ×3 (05:49→22:05)
[2021-09-13 06:00] VITALS: BP 87/56; PULSE 74; RESP 18; TEMP 36.4; O2SAT 94
[2021-09-13 06:44] LABS: Glucose Point of Care 137 mg/dL (70-110)
[2021-09-13] MEDS: acetaminophen 325 mg Tablet 650 MG PO ×2 (09:50→20:06)
[2021-09-13] MEDS: amlodipine 10 mg Tablet PO (09:51)
[2021-09-13] MEDS: metoprolol succinate ER (24 HR) 50 mg Tablet PO (09:51)
[2021-09-13] MEDS: duloxetine 30 mg Capsule 60 MG PO ×2 (09:51→18:02)
[2021-09-13] MEDS: docusate sodium 100 mg Capsule PO ×2 (09:51→18:02)
[2021-09-13] MEDS: gabapentin 300 mg Capsule 600 MG PO ×4 (09:51→20:02)
[2021-09-13] MEDS: cyclobenzaprine 10 mg Tablet PO ×2 (09:51→18:02)
[2021-09-13] MEDS: pantoprazole DR 40 mg Tablet PO ×2 (09:51→18:01)
[2021-09-13] MEDS: ferrous sulfate EC 325 mg Tablet PO (09:52)
[2021-09-13] MEDS: lidocaine 5% Patch 1 PATCH TOPICAL ×2 (09:52→20:03)
[2021-09-13] MEDS: tamsulosin 0.4 mg Capsule PO (09:52)
[2021-09-13] MEDS: atorvastatin 40 mg Tablet PO (10:29)
--- NOTE | 2021-09-13 11:24 | W.PM.NPUPNS ---
Subjective NPU Subjective: Interval history: She says that she has had twice in the last 24 hours when the pain was so bad that she wanted to and she tried to hit herself but was stopped. She has not required restraints. She has been on the Ativan 2 mg IM every 6 hours and received Seroquel 300 mg last night. She says that she slept well. She is up and alert now. I told her that it seems like we need to find some other place for her to live because she does well here and as soon as she got home she decompensated again. She said that she was not too keen on that idea but will talk to our hospital social worker about it. Mental Status Exam MSE Comments: This is a 41-year-old overweight female who has been in no acute distress at the moment. She said that earlier today she tried to hit herself because she wanted to because of the pain. psychomotor activity currently normal Speech is at a regular rate and rhythm, normal volume, good articulation, not pressured. Alert, orientation was not tested Attention and concentration probably normal. Memory is intact not formally tested Mood is depressed. Affect is dysphoric. Thought process is logical and goal-directed. Thought content: Denies auditory and visual hallucinations. No delusions or paranoia are noted. She denies suicidal ideation currently. She denies homicidal ideation. Fund of knowledge is probably average. Insight and judgment appear to be poor. Impulse control is very poor. Cognition: Patient Appearance: Appears Older than Age, Disheveled/Poor Hygiene and No Eye Contact Level of Consciousness: Combative, Inappropriate and Restless Patient Cognition Impaired: Yes Ability to Follow Directions: Fair Patient Orientation (long list): Person, Place, Time, Name, Age and Birthday Comprehension Ability: No Impairment Hallucination Type: None Delusion Description: Persecutory Thought Process: Appropriate, Indecisive and Perseveration Affect: Affect Description: Appropriate and Labile Behavior: Patient Behavior: Appropriate and Impulsive Speech Pattern: Appropriate Vitals/I&O/Wt Last Vital Signs Temp 97.6 F 09/13/21 06:00 Pulse 74 09/13/21 06:00 Resp 18 09/13/21 06:00 BP 87/56 09/13/21 06:00 Pulse Ox 94 09/13/21 06:00 Data NPU : 09/11/21 16:28 09/11/21 16:28 A&P Assessment and plan (1) Depression: Status: Acute Qualifiers: Depression Type: unspecified Qualified Code(s): F32.9 - Major depressive disorder, single episode, unspecified (2) Suicidal ideation: Status: Acute (3) Anemia of chronic disease: Status: Acute (4) Below-knee amputation of left lower extremity: Status: Acute (5) Diabetic gastroparesis: Status: Chronic (6) Diabetes mellitus type 1: Status: Chronic Qualifiers: Diabetes mellitus complication status: with hyperglycemia Qualified Code(s): E10.65 - Type 1 diabetes mellitus with hyperglycemia Plan This is a 41-year-old female with multiple admissions wanted to because of the pain Plan: 1.? Continue current medication.? Decrease Ativan 2 mg IM to every 8 hours today. 2.? Continue every 15 minute checks for safety. 3.? Encourage individual, group and milieu therapies. 4.? Encourage sober living treatment after discharge at the highest level of care to which she is willing to commit. 5.? We will monitor for safety for herself in the community prior to discharge. Involuntary Hold Information 96 Hour Hold: 96 Hour Involuntary Admission: Yes 96 Hour Hold Ending Date: 09/15/21 96 Hour Hold Ending Time: 00:01 Attestations NPU Medical Necessity Statement*: Inpatient hospitalization is medically necessary and the clinically appropriate intervention at this time. We will initiate medications and make changes as indicated. 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 Code Acute Devops Engineer for Kim Mitchell Diagnoses Depression F32.9 Depression Type: unspecified Suicidal ideation R45.851 Anemia of chronic disease D63.8 Below-knee amputation of left lower extremity S88.112A Diabetic gastroparesis E11.43; K31.84 Diabetes mellitus type 1 E10.65 Diabetes mellitus complication status: with hyperglycemia
[2021-09-13 11:25] VITALS: RESP 14; O2SAT 98
[2021-09-13] MEDS: doxycycline 100 mg Tablet PO (11:26)
[2021-09-13 11:28] LABS: Glucose Point of Care 131 mg/dL (70-110)
--- NOTE | 2021-09-13 12:13 | P.PN_ITS ---
Subjective Subjective: Interval history: Concern yesterday with some potential dark emesis. No nurse cannot confirm this is happened today. She still has some intermittent abdominal pain, mainly in her right back. No vomiting today. Medications: Reviewed: Yes Vitals/I&O/Wt Last Vital Signs Temp 97.6 F 09/13/21 06:00 Pulse 74 09/13/21 06:00 Resp 14 09/13/21 11:25 BP 87/56 09/13/21 06:00 Pulse Ox 98 09/13/21 11:25 Physical Exam Narrative: EXAM NARRATIVE: General exam no distress Neck is supple Cardiovascular regular rate and rhythm without murmur Lungs clear Abdomen is positive bowel sounds. No tenderness epigastric area. Indicates pain is in right parathoracic area, lower thoracic levels. Data : 09/11/21 16:28 09/11/21 16:28 A&P Assessment and plan (1) Low back pain: Continue chronic medications Status: Acute (2) Diabetes mellitus type 1: Continue current meds Status: Chronic Qualifiers: Diabetes mellitus complication status: with hyperglycemia Qualified Code(s): E10.65 - Type 1 diabetes mellitus with hyperglycemia (3) Coronary artery disease: Continue current meds Status: Acute Qualifiers: Coronary Disease-Associated Artery/Lesion type: [place] artery [place] vs. transplanted heart: [place] heart Associated angina: without angina Qualified Code(s): I25.10 - Atherosclerotic heart disease of [place] coronary artery without angina pectoris Plan Concern of coffee-ground emesis yesterday. Check hemoglobin. Increase Protonix to twice daily. Avoid any anti-inflammatories. Hypertension. Blood pressure somewhat lower today but from my understanding she has received quite a bit of benzodiazepine. Continue to monitor closely. 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 transplanted heart: [place] heart Associated angina: without angina
[2021-09-13 13:00] LABS: Hematocrit 29.2 % (37.0-47.0); Hemoglobin 8.9 g/dL (11.5-15.3)
[2021-09-13 13:37] VITALS: BP 92/55; PULSE 67; RESP 16; TEMP 36.4; O2SAT 93
[2021-09-13] MEDS: ibuprofen 800 mg tablet PO ×2 (14:03→22:04)
[2021-09-13] MEDS: insulin lispro 100 unit/1 mL SUBCUT ×2 (14:09→20:59)
[2021-09-13 16:40] LABS: Glucose Point of Care 209 mg/dL (70-110)
[2021-09-13 18:01] VITALS: RESP 14; O2SAT 98
[2021-09-13] MEDS: hyDRALAzine 25 mg Tablet PO (18:02)
[2021-09-13] MEDS: quetiapine 300 mg Tablet PO (20:02)
[2021-09-13] MEDS: ropinirole 1 mg Tablet PO (20:03)
[2021-09-13 20:33] LABS: Glucose Point of Care 148 mg/dL (70-110)
[2021-09-13] MEDS: insulin glargine 100 units/1 mL 30 UNIT SUBCUT (20:58)
[2021-09-13 21:04] VITALS: BP 100/64; PULSE 75; RESP 17; TEMP 36.2; O2SAT 99
--- NOTE | 2021-09-13 21:22 | PC.NURSE ---
Patient informed nurse that she would like a new person added to her PHI contacts, pt states this is a close friend whom she would like to receive phone calls from. Marci Flores [phone].
[2021-09-13] MEDS: trazodone 50 mg Tablet PO (22:07)
[2021-09-14] VITALS (7 sets, daily range): BP systolic 98–109; BP diastolic 60–72; PULSE 60–90; RESP 14–18; TEMP 36.6; O2SAT 94–99
[2021-09-14] MEDS: oxyCODONE 5 mg IR Tab/Cap 10 MG PO ×4 (00:08→22:37)
[2021-09-14] MEDS: doxycycline 100 mg Tablet PO ×3 (00:15→22:36)
[2021-09-14 06:38] LABS: Glucose Point of Care 116 mg/dL (70-110)
--- NOTE | 2021-09-14 06:45 | PC.NURSE ---
Scheduled injection of 2 MG Ativan not given due to patient's level of awareness decreased, pt was confused at rounds and appeared sedated. Vital signs BP 98/62, HR 60 RR 16, O2 94% on RA, blood glucose 116. charge nurse informed and Ativan dose was held.
[2021-09-14] MEDS: docusate sodium 100 mg Capsule PO ×2 (08:54→17:10)
[2021-09-14] MEDS: gabapentin 300 mg Capsule 600 MG PO ×4 (08:54→22:37)
[2021-09-14] MEDS: metoprolol succinate ER (24 HR) 50 mg Tablet PO (08:54)
[2021-09-14] MEDS: amlodipine 10 mg Tablet PO (08:54)
[2021-09-14] MEDS: pantoprazole DR 40 mg Tablet PO ×2 (08:54→17:10)
[2021-09-14] MEDS: atorvastatin 40 mg Tablet PO (08:54)
[2021-09-14] MEDS: duloxetine 30 mg Capsule 60 MG PO ×2 (08:54→17:10)
[2021-09-14] MEDS: lidocaine 5% Patch 1 PATCH TOPICAL ×2 (08:55→22:42)
[2021-09-14] MEDS: ferrous sulfate EC 325 mg Tablet PO (08:55)
[2021-09-14] MEDS: tamsulosin 0.4 mg Capsule PO (08:55)
[2021-09-14] MEDS: oxymetazoline 0.05% Nasal Spray 15 mL 2 SPRAY NOSTRIL-R (09:41)
[2021-09-14] MEDS: LORazepam 2 mg/mL INJ 1 mL IM (09:43)
[2021-09-14 11:23] LABS: Glucose Point of Care 241 mg/dL (70-110)
[2021-09-14] MEDS: insulin lispro 100 unit/1 mL SUBCUT ×2 (11:29→22:39)
[2021-09-14] MEDS: ibuprofen 800 mg tablet PO (11:57)
[2021-09-14] MEDS: cyclobenzaprine 10 mg Tablet PO ×2 (11:57→22:37)
--- NOTE | 2021-09-14 13:01 | P.NPUPN_ITS ---
Subjective NPU Subjective: Interval history: Patient was fairly lethargic and hard to arouse during our interaction. We discussed the use of Ativan during this period of time that she had been ag gressive and self injuring. We discussed a plan to decrease the dose and see if she would be able to manage herself. She was open to the change. Mental Status Exam MSE Comments: This is an overweight white female in hospital scrubs with limited grooming and eye contact.? With notable below-knee amputation on her left leg and a significant abrasion in the middle top of her forehead that seems different from the last time and financial services sales representative of continued head-banging. No abnormal movements except for psychomotor retardation.? Mostly cooperative with exam in no acute distress.? Speech was decreased rate and volume.? Mood described as maybe a little better, affect somewhat somnolent.? Thought process organized.? Thought content: Patient denied suicidal ideation or, homicidal ideation, there were no delusions reported or noted, there and she denied auditory or visual hallucinations.? Attention and concentration were intact and memory appeared limited but none were formally tested.? She is alert and oriented x3.? Insight and judgment are limited,? and impulse control is limited versus impaired. Vitals/I&O/Wt Last Vital Signs Temp 97.2 F L 09/13/21 21:04 Pulse 60 09/14/21 06:00 Resp 16 09/14/21 06:00 BP 98/62 09/14/21 06:00 Pulse Ox 94 09/14/21 06:00 Data NPU : 09/13/21 12:35 09/11/21 16:28 A&P Assessment and plan (1) Depression: Status: Acute Qualifiers: Depression Type: unspecified Qualified Code(s): F32.9 - Major depressive disorder, single episode, unspecified (2) Suicidal ideation: Status: Acute (3) Diabetes mellitus type 1: Status: Chronic Qualifiers: Diabetes mellitus complication status: with hyperglycemia Qualified Code(s): E10.65 - Type 1 diabetes mellitus with hyperglycemia (4) Diabetic gastroparesis: Status: Chronic (5) Anemia of chronic disease: Status: Acute (6) Below-knee amputation of left lower extremity: Status: Acute (7) Insomnia: Status: Acute Qualifiers: Insomnia type: due to medical condition Qualified Code(s): G47.01 - Insomnia due to medical condition (8) ALEJANDRO (generalized anxiety disorder): Status: Acute (9) Noncompliance: Status: Acute Plan Plan This is a 41-year-old female with multiple admissions wanted to because of the pain Plan: 1.? Continue current medication.? Decrease Ativan to 2 mg oral twice daily. 2.? Continue every 15 minute checks for safety. 3.? Encourage individual, group and milieu therapies. 4.? Encourage sober living treatment after discharge at the highest level of care to which she is willing to commit. 5.? As we decreased the Ativan we will need to assess safety and plan for discharge. Involuntary Hold Information 96 Hour Hold: 96 Hour Involuntary Admission: Yes 96 Hour Hold Ending Date: 09/15/21 96 Hour Hold Ending Time: 00:01 Attestations NPU Medical Necessity Statement*: Inpatient hospitalization is medically necessary and the clinically appropriate intervention at this time.? We will initiate medications and make changes as indicated. Likely length of stay 3 to 5 days. 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 Code Acute Blade Sharpener for Kim Mitchell Diagnoses Depression F32.9 Depression Type: unspecified Suicidal ideation R45.851 Diabetes mellitus type 1 E10.65 Diabetes mellitus complication status: with hyperglycemia Diabetic gastroparesis E11.43; K31.84 Anemia of chronic disease D63.8 Below-knee amputation of left lower extremity S88.112A Insomnia G47.01 Insomnia type: due to medical condition ALEJANDRO (generalized anxiety disorder) F41.1 Noncompliance Z91.19
[2021-09-14 15:59] LABS: Glucose Point of Care 107 mg/dL (70-110)
[2021-09-14] MEDS: hyDROXYzine 25 mg Capsule 50 MG PO (17:01)
[2021-09-14] MEDS: OLANZapine 5 mg ODT PO (17:01)
[2021-09-14] MEDS: LORazepam 2 mg Tablet PO (17:10)
[2021-09-14 21:07] LABS: Glucose Point of Care 191 mg/dL (70-110)
[2021-09-14] MEDS: quetiapine 300 mg Tablet PO (22:36)
[2021-09-14] MEDS: ropinirole 1 mg Tablet PO (22:36)
[2021-09-14] MEDS: trazodone 50 mg Tablet PO (22:37)
[2021-09-14] MEDS: insulin glargine 100 units/1 mL 30 UNIT SUBCUT (22:41)
[2021-09-15 05:20] VITALS: RESP 18; O2SAT 98
[2021-09-15] MEDS: oxyCODONE 5 mg IR Tab/Cap 10 MG PO ×3 (05:20→23:23)
[2021-09-15 05:38] VITALS: BP 93/56; PULSE 70; RESP 17; TEMP 36.3; O2SAT 97
--- NOTE | 2021-09-15 06:44 | PC.NURSE ---
Oxycodone 10mg, PO Flexeril 10mg PO, Trazodone 50 mg PO given all with good results for pain , sleep, and muscle spasams.
[2021-09-15 06:45] LABS: Glucose Point of Care 166 mg/dL (70-110)
[2021-09-15] MEDS: cyclobenzaprine 10 mg Tablet PO (06:49)
[2021-09-15] MEDS: metoprolol succinate ER (24 HR) 50 mg Tablet PO (08:47)
[2021-09-15] MEDS: duloxetine 30 mg Capsule 60 MG PO ×2 (08:47→18:16)
[2021-09-15] MEDS: atorvastatin 40 mg Tablet PO (08:47)
[2021-09-15] MEDS: ferrous sulfate EC 325 mg Tablet PO (08:47)
[2021-09-15] MEDS: docusate sodium 100 mg Capsule PO ×2 (08:47→18:16)
[2021-09-15] MEDS: LORazepam 2 mg Tablet PO ×2 (08:47→18:16)
[2021-09-15] MEDS: gabapentin 300 mg Capsule 600 MG PO ×4 (08:48→21:14)
[2021-09-15] MEDS: tamsulosin 0.4 mg Capsule PO (08:48)
[2021-09-15] MEDS: amlodipine 10 mg Tablet PO (08:48)
[2021-09-15] MEDS: pantoprazole DR 40 mg Tablet PO ×2 (08:48→18:16)
[2021-09-15] MEDS: insulin lispro 100 unit/1 mL SUBCUT ×4 (08:49→21:17)
--- NOTE | 2021-09-15 09:20 | PHA.FALL ---
A Pharmacy Consult Was Conducted For Cherrie Solomon Due To: [place] Fall Scale Risk Level: High Fall Risk On 09/15/21 08:00 And A Medication Fall Risk Score Greater Than 10. The Recommendations Are As Follows:the medications listed below have sedation/somnolence/dizziness adverse reactions. Concomitant administration of these medications may lead to an increased/compounded risk of falls and it is recommended to avoid administration together if possible. Many of the offending medications are listed as PRN therefore extra caution must be taken when the need arises for a particular agent. - Amlodipine: somnolence - Benztropine: confusion - Cyclobenzaprine: dizziness, somnolence - Diphenhydramine: dizziness, sedation - Cymbalta: somnolence - Gabapentin: dizziness, somnolence - Haloperidol: somnolence - Hydroxyzine: somnolence - Loperamide: somnolence, dizziness - Lorazepam: confusion, dizziness, somnolence - Metoclopramide: Somnolence - metoprolol: dizziness - Olanzapine: dizziness, somnolence - Oxycodone: somnolence, dizziness, light headedness - Quetiapine: somnolence - Ropinirole: dizziness, somnolence - Tamsulosin: dizziness, somnolence - Trazodone: somnolence
[2021-09-15] MEDS: lidocaine 5% Patch 1 PATCH TOPICAL ×2 (09:32→21:15)
[2021-09-15 11:24] LABS: Glucose Point of Care 147 mg/dL (70-110)
[2021-09-15] MEDS: doxycycline 100 mg Tablet PO ×2 (11:51→23:23)
[2021-09-15 13:56] VITALS: BP 109/70; PULSE 79; RESP 16; TEMP 36.7; O2SAT 99
[2021-09-15 15:58] VITALS: RESP 14; O2SAT 98
[2021-09-15] MEDS: hyDROXYzine 25 mg Capsule 50 MG PO (15:58)
[2021-09-15] MEDS: oxymetazoline 0.05% Nasal Spray 15 mL 2 SPRAY NOSTRIL-R (15:59)
[2021-09-15 16:46] LABS: Glucose Point of Care 278 mg/dL (70-110)
--- NOTE | 2021-09-15 18:04 | W.PM.NPUPNS ---
Subjective NPU Subjective: Interval history: Patient presents today starting to be more with that and getting up more now that we have begun retracting the Ativan. She attempted to downplay the impact of that reduction on her alertness but ultimately excepted this is part of the plan towards getting her back home. She denied any new or severe issues. She continues to have moments where she seen rocking in her room and endorsing some pain but certainly not reporting pain like she had been. We discussed the likelihood of discharge at the beginning of the week. Mental Status Exam MSE Comments: This is an overweight white female in hospital scrubs with limited grooming and eye contact.? With notable below-knee amputation on her left leg and a significant abrasion in the middle top of her forehead that seems different from the last time and product sales representative of continued head-banging.? No abnormal movements except for psychomotor retardation.? Mostly cooperative with exam in no acute distress.? Speech was decreased rate and volume.? Mood described as okay, affect somnolent.? Thought process organized.? Thought content: Patient denied suicidal ideation or, homicidal ideation, there were no delusions reported or noted, there and she denied auditory or visual hallucinations.? Attention and concentration were intact and memory appeared limited but none were formally tested.? She is alert and oriented x3.? Insight and judgment are limited,? and impulse control is limited versus impaired. Vitals/I&O/Wt Last Vital Signs Temp 98.0 F 09/15/21 21:08 Pulse 68 09/15/21 21:08 Resp 18 09/15/21 23:23 BP 100/64 09/15/21 21:08 Pulse Ox 99 09/15/21 23:23 Data NPU : 09/13/21 12:35 09/11/21 16:28 A&P Assessment and plan (1) Depression: Status: Acute Qualifiers: Depression Type: unspecified Qualified Code(s): F32.9 - Major depressive disorder, single episode, unspecified (2) Suicidal ideation: Status: Acute (3) Diabetes mellitus type 1: Status: Chronic Qualifiers: Diabetes mellitus complication status: with hyperglycemia Qualified Code(s): E10.65 - Type 1 diabetes mellitus with hyperglycemia (4) Diabetic gastroparesis: Status: Chronic (5) Anemia of chronic disease: Status: Acute (6) Below-knee amputation of left lower extremity: Status: Acute (7) Insomnia: Status: Acute Qualifiers: Insomnia type: due to medical condition Qualified Code(s): G47.01 - Insomnia due to medical condition (8) GERD (gastroesophageal reflux disease): Status: Acute Qualifiers: Esophagitis presence: without esophagitis Qualified Code(s): K21.9 - Gastro-esophageal reflux disease without esophagitis (9) ALEJANDRO (generalized anxiety disorder): Status: Acute (10) Noncompliance: Status: Acute (11) Dehiscence of amputation stump: Status: Acute (12) Diabetic neuropathy: Status: Acute Qualifiers: Diabetes mellitus type: type 1 Diabetes mellitus complication detail: diabetic polyneuropathy Qualified Code(s): E10.42 - Type 1 diabetes mellitus with diabetic polyneuropathy (13) Coronary artery disease: Status: Acute Qualifiers: Coronary Disease-Associated Artery/Lesion type: [place] artery [place] vs. transplanted heart: [place] heart Associated angina: without angina Qualified Code(s): I25.10 - Atherosclerotic heart disease of [place] coronary artery without angina pectoris (14) Diabetic ophthalmopathy: Status: Acute Plan This is a 41-year-old female with multiple admissions wanted to because of the pain Plan: 1.? Continue current medication.? Decreased Ativan to 2 mg oral twice daily. 2.? Continue every 15 minute checks for safety. 3.? Encourage individual, group and milieu therapies. 4.? Encourage sober living treatment after discharge at the highest level of care to which she is willing to commit. 5.? As we decreased the Ativan we will need to assess safety and plan for discharge. Involuntary Hold Information 96 Hour Hold: 96 Hour Involuntary Admission: Yes 96 Hour Hold Ending Date: 09/15/21 96 Hour Hold Ending Time: 00:01 Attestations NPU Medical Necessity Statement*: Inpatient hospitalization is medically necessary and the clinically appropriate intervention at this time.? We will initiate medications and make changes as indicated.? Likely length of stay 3 to 5 days. 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 [employer] Diagnoses Depression F32.9 Depression Type: unspecified Suicidal ideation R45.851 Diabetes mellitus type 1 E10.65 Diabetes mellitus complication status: with hyperglycemia Diabetic gastroparesis E11.43; K31.84 Anemia of chronic disease D63.8 Below-knee amputation of left lower extremity S88.112A Insomnia G47.01 Insomnia type: due to medical condition GERD (gastroesophageal reflux disease) K21.9 Esophagitis presence: without esophagitis ALEJANDRO (generalized anxiety disorder) F41.1 Noncompliance Z91.19 Dehiscence of amputation stump T87.81 Diabetic neuropathy E10.42 Diabetes mellitus type: type 1 Diabetes mellitus complication detail: diabetic polyneuropathy Coronary artery disease I25.10 Coronary Disease-Associated Artery/Lesion type: [place] artery [place] vs. transplanted heart: [place] heart Associated angina: without angina Diabetic ophthalmopathy E11.39
[2021-09-15 20:47] LABS: Glucose Point of Care 154 mg/dL (70-110)
[2021-09-15 21:08] VITALS: BP 100/64; PULSE 68; RESP 15; TEMP 36.7; O2SAT 99
[2021-09-15] MEDS: quetiapine 300 mg Tablet PO (21:15)
[2021-09-15] MEDS: ropinirole 1 mg Tablet PO (21:15)
[2021-09-15] MEDS: insulin glargine 100 units/1 mL 30 UNIT SUBCUT (21:17)
[2021-09-15 23:23] VITALS: RESP 18; O2SAT 99
[2021-09-16] MEDS: hyDROXYzine 25 mg Capsule 50 MG PO ×2 (02:36→12:18)
[2021-09-16 06:00] VITALS: BP 112/66; PULSE 68; RESP 16; TEMP 36.6; O2SAT 97
[2021-09-16] MEDS: oxymetazoline 0.05% Nasal Spray 15 mL 2 SPRAY NOSTRIL-R ×2 (06:41→14:37)
[2021-09-16 07:38] LABS: Glucose Point of Care 110 mg/dL (70-110)
[2021-09-16] MEDS: metoprolol succinate ER (24 HR) 50 mg Tablet PO (08:15)
[2021-09-16] MEDS: docusate sodium 100 mg Capsule PO ×2 (08:15→17:50)
[2021-09-16] MEDS: amlodipine 10 mg Tablet PO (08:15)
[2021-09-16] MEDS: atorvastatin 40 mg Tablet PO (08:15)
[2021-09-16] MEDS: duloxetine 30 mg Capsule 60 MG PO ×2 (08:15→17:50)
[2021-09-16] MEDS: gabapentin 300 mg Capsule 600 MG PO ×4 (08:15→21:15)
[2021-09-16] MEDS: pantoprazole DR 40 mg Tablet PO ×2 (08:15→17:50)
[2021-09-16] MEDS: tamsulosin 0.4 mg Capsule PO (08:15)
[2021-09-16] MEDS: ferrous sulfate EC 325 mg Tablet PO (08:15)
[2021-09-16 08:16] VITALS: RESP 14; O2SAT 98
[2021-09-16] MEDS: oxyCODONE 5 mg IR Tab/Cap 10 MG PO ×3 (08:16→21:16)
[2021-09-16] MEDS: ibuprofen 800 mg tablet PO ×2 (08:16→12:09)
[2021-09-16] MEDS: LORazepam 2 mg Tablet PO ×2 (08:16→17:50)
[2021-09-16] MEDS: lidocaine 5% Patch 1 PATCH TOPICAL (08:17)
[2021-09-16 11:11] LABS: Glucose Point of Care 179 mg/dL (70-110)
[2021-09-16] MEDS: insulin lispro 100 unit/1 mL SUBCUT ×3 (12:09→17:07)
[2021-09-16] MEDS: cyclobenzaprine 10 mg Tablet PO (12:10)
[2021-09-16] MEDS: doxycycline 100 mg Tablet PO (12:10)
[2021-09-16 14:00] VITALS: BP 135/83; PULSE 67; RESP 16; TEMP 36.8; O2SAT 100
[2021-09-16 14:36] VITALS: RESP 14; O2SAT 98
[2021-09-16] MEDS: blistex lip oint 7 gm Tube 1 APPLIC TOPICAL (14:36)
--- NOTE | 2021-09-16 15:59 | PC.NURSE ---
Spoke with pt about getting social welfare research worker to look into some home health options for her upon discharge. NEEDS *help with medication *help with ADL's Pt expressed that she feels like she is a burden to her family and everyone. Tearful and depressed at this time, staff just sat and listened for a while.
[2021-09-16 16:21] LABS: Glucose Point of Care 248 mg/dL (70-110)
--- NOTE | 2021-09-16 17:17 | W.PM.NPUPNS ---
Subjective NPU Subjective: Interval history: Patient presents today continuing to show signs of improvement with reduction in the Ativan. We discussed moving the Ativan down again tomorrow which she was apprehensive about we discussed the fact that she will have a standing dose and if there are any concerns we could use a as needed dose but that think should be fine. She continues to be more interactive since the decrease in medication and has not reported additional concern for pain. We discussed consideration of discharge the beginning of the week once we confirm appropriate follow-up and direction from the pain clinic. Mental Status Exam MSE Comments: This is an overweight white female in hospital scrubs with limited grooming and eye contact.? With notable below-knee amputation on her left leg and a significant abrasion in the middle top of her forehead that seems different from the last time and payable representative of continued head-banging.? No abnormal movements except for psychomotor retardation.? Mostly cooperative with exam in no acute distress.? Speech was decreased rate and volume.? Mood described as okay, affect less somnolent.? Thought process organized.? Thought content: Patient denied suicidal ideation or, homicidal ideation, there were no delusions reported or noted, there and she denied auditory or visual hallucinations.? Attention and concentration were intact and memory appeared limited but none were formally tested.? She is alert and oriented x3.? Insight and judgment are limited,? and impulse control is limited versus impaired. Vitals/I&O/Wt Last Vital Signs Temp 97.7 F 09/16/21 21:25 Pulse 72 09/16/21 21:25 Resp 16 09/16/21 21:25 BP 107/72 09/16/21 21:25 Pulse Ox 99 09/16/21 21:25 Data NPU : 09/13/21 12:35 09/11/21 16:28 A&P Assessment and plan (1) Depression: Status: Acute Qualifiers: Depression Type: unspecified Qualified Code(s): F32.9 - Major depressive disorder, single episode, unspecified (2) Suicidal ideation: Status: Acute (3) Diabetes mellitus type 1: Status: Chronic Qualifiers: Diabetes mellitus complication status: with hyperglycemia Qualified Code(s): E10.65 - Type 1 diabetes mellitus with hyperglycemia (4) Diabetic gastroparesis: Status: Chronic (5) Anemia of chronic disease: Status: Acute (6) Below-knee amputation of left lower extremity: Status: Acute (7) Insomnia: Status: Acute Qualifiers: Insomnia type: due to medical condition Qualified Code(s): G47.01 - Insomnia due to medical condition (8) GERD (gastroesophageal reflux disease): Status: Acute Qualifiers: Esophagitis presence: without esophagitis Qualified Code(s): K21.9 - Gastro-esophageal reflux disease without esophagitis (9) ALEJANDRO (generalized anxiety disorder): Status: Acute (10) Noncompliance: Status: Acute (11) Coronary artery disease: Status: Acute Qualifiers: Coronary Disease-Associated Artery/Lesion type: [place] artery [place] vs. transplanted heart: [place] heart Associated angina: without angina Qualified Code(s): I25.10 - Atherosclerotic heart disease of [place] coronary artery without angina pectoris (12) Diabetic ophthalmopathy: Status: Acute (13) Diabetic neuropathy: Status: Acute Qualifiers: Diabetes mellitus type: type 1 Diabetes mellitus complication detail: diabetic polyneuropathy Qualified Code(s): E10.42 - Type 1 diabetes mellitus with diabetic polyneuropathy Plan This is a 41-year-old female with multiple admissions wanted to because of the pain Plan: 1.? Continue current medication.? Decrease Ativan to 1 mg oral twice daily. 2.? Continue every 15 minute checks for safety. 3.? Encourage individual, group and milieu therapies. 4.? Encourage sober living treatment after discharge at the highest level of care to which she is willing to commit. 5.? As we decreased the Ativan we will need to assess safety and plan for discharge. Involuntary Hold Information 96 Hour Hold: 96 Hour Involuntary Admission: Yes 96 Hour Hold Ending Date: 09/15/21 96 Hour Hold Ending Time: 00:01 Attestations NPU Medical Necessity Statement*: Inpatient hospitalization is medically necessary and the clinically appropriate intervention at this time.? We will initiate medications and make changes as indicated.? Likely length of stay 2-4 days. 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[employer] Fwd Diagnoses Depression F32.9 Depression Type: unspecified Suicidal ideation R45.851 Diabetes mellitus type 1 E10.65 Diabetes mellitus complication status: with hyperglycemia Diabetic gastroparesis E11.43; K31.84 Anemia of chronic disease D63.8 Below-knee amputation of left lower extremity S88.112A Insomnia G47.01 Insomnia type: due to medical condition GERD (gastroesophageal reflux disease) K21.9 Esophagitis presence: without esophagitis ALEJANDRO (generalized anxiety disorder) F41.1 Noncompliance Z91.19 Coronary artery disease I25.10 Coronary Disease-Associated Artery/Lesion type: [place] artery [place] vs. transplanted heart: [place] heart Associated angina: without angina Diabetic ophthalmopathy E11.39 Diabetic neuropathy E10.42 Diabetes mellitus type: type 1 Diabetes mellitus complication detail: diabetic polyneuropathy
[2021-09-16] MEDS: ropinirole 1 mg Tablet PO (21:15)
[2021-09-16 21:16] VITALS: RESP 18
[2021-09-16 21:16] LABS: Glucose Point of Care 132 mg/dL (70-110)
[2021-09-16] MEDS: quetiapine 300 mg Tablet PO (21:16)
[2021-09-16 21:25] VITALS: BP 107/72; PULSE 72; RESP 16; TEMP 36.5; O2SAT 99
[2021-09-16] MEDS: insulin glargine 100 units/1 mL 30 UNIT SUBCUT (22:23)
--- NOTE | 2021-09-16 22:34 | PC.NURSE ---
Patient at the nurses station requesting her pain medication. She rates her pain in her lower right back at a 6. Oxycodone 10 mg po given for pain. The patient is now asleep.
[2021-09-17] MEDS: hyDROXYzine 25 mg Capsule 50 MG PO (00:59)
[2021-09-17] MEDS: doxycycline 100 mg Tablet PO ×3 (00:59→20:57)
[2021-09-17] MEDS: cyclobenzaprine 10 mg Tablet PO ×2 (00:59→17:27)
[2021-09-17] MEDS: ibuprofen 800 mg tablet PO ×2 (01:41→17:26)
--- NOTE | 2021-09-17 03:01 | PC.NURSE ---
Patient is at the nurses station stating that she has been tossing and turning, is in pain and anxious. Ibuprofen was given for the pain along with flexeril. Vistaril was given for the anxiety. Patient is now resting quietly in her bed with her eyes closed.
[2021-09-17 05:59] VITALS: BP 99/64; PULSE 84; RESP 18; O2SAT 98
[2021-09-17 06:00] VITALS: BMI 29.5
[2021-09-17 06:58] LABS: Glucose Point of Care 132 mg/dL (70-110)
[2021-09-17] MEDS: tamsulosin 0.4 mg Capsule PO (08:46)
[2021-09-17] MEDS: gabapentin 300 mg Capsule 600 MG PO ×4 (08:46→20:57)
[2021-09-17] MEDS: ferrous sulfate EC 325 mg Tablet PO (08:46)
[2021-09-17 08:47] VITALS: RESP 16
[2021-09-17] MEDS: duloxetine 30 mg Capsule 60 MG PO ×2 (08:47→17:27)
[2021-09-17] MEDS: oxyCODONE 5 mg IR Tab/Cap 10 MG PO ×2 (08:47→17:27)
[2021-09-17] MEDS: sennosides-docusate Tablet 1 TAB PO (08:47)
[2021-09-17] MEDS: acetaminophen 325 mg Tablet 650 MG PO ×2 (08:47→12:05)
[2021-09-17] MEDS: docusate sodium 100 mg Capsule PO ×2 (08:48→17:27)
[2021-09-17] MEDS: pantoprazole DR 40 mg Tablet PO ×2 (08:48→17:28)
[2021-09-17] MEDS: amlodipine 10 mg Tablet PO (08:48)
[2021-09-17] MEDS: metoprolol succinate ER (24 HR) 50 mg Tablet PO (08:48)
[2021-09-17] MEDS: atorvastatin 40 mg Tablet PO (08:48)
[2021-09-17 11:26] LABS: Glucose Point of Care 143 mg/dL (70-110)
[2021-09-17] MEDS: LORazepam 1 mg Tablet PO ×2 (11:56→17:26)
[2021-09-17] MEDS: lidocaine 5% Patch 1 PATCH TOPICAL (11:56)
[2021-09-17] MEDS: benztropine 1 mg Tablet PO (12:25)
[2021-09-17 14:00] VITALS: BP 102/68; PULSE 88; RESP 18; TEMP 36.2; O2SAT 98
[2021-09-17] MEDS: OLANZapine 5 mg ODT PO (14:35)
--- NOTE | 2021-09-17 14:47 | P.NPUPN_ITS ---
Subjective NPU Subjective: Interval history: Patient is slowly feeling improvement and presents today reporting that she still depressed still wanting things to be better. We discussed that she is looking better and is less out of it. She has been more engaging on the milieu. We discussed the plan to work with her outpatient providers team tomorrow to see if we had a good support plan for discharge. She continued hesitant about improvement in discharge. Mental Status Exam MSE Comments: This is an overweight white female in hospital scrubs with limited grooming and eye contact.? 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 No abnormal movements except for psychomotor retardation.? More cooperative with exam in no acute distress.? Speech was decreased rate and volume.? Mood described as better, affect less somnolent.? Thought process organized.? Thought content: Patient denied suicidal ideation or, homicidal ideation, there were no delusions reported or noted, there and she denied auditory or visual hallucinations.? Attention and concentration were intact and memory appeared limited but none were formally tested.? She is alert and oriented x3.? Insight and judgment are limited,? and impulse control is limited versus impaired. Vitals/I&O/Wt Last Vital Signs Temp 97.2 F L 09/17/21 14:00 Pulse 88 09/17/21 14:00 Resp 18 09/17/21 14:00 BP 102/68 09/17/21 14:00 Pulse Ox 98 09/17/21 14:00 Weight last 48 hrs Weight 90.718 kg Data NPU : 09/13/21 12:35 09/11/21 16:28 A&P Assessment and plan (1) Depression: Status: Acute Qualifiers: Depression Type: unspecified Qualified Code(s): F32.9 - Major depressive disorder, single episode, unspecified (2) Suicidal ideation: Status: Acute (3) Diabetes mellitus type 1: Status: Chronic Qualifiers: Diabetes mellitus complication status: with hyperglycemia Qualified Code(s): E10.65 - Type 1 diabetes mellitus with hyperglycemia (4) Diabetic gastroparesis: Status: Chronic (5) Anemia of chronic disease: Status: Acute (6) Below-knee amputation of left lower extremity: Status: Acute (7) Insomnia: Status: Acute Qualifiers: Insomnia type: due to medical condition Qualified Code(s): G47.01 - Insomnia due to medical condition (8) GERD (gastroesophageal reflux disease): Status: Acute Qualifiers: Esophagitis presence: without esophagitis Qualified Code(s): K21.9 - Gastro-esophageal reflux disease without esophagitis (9) ALEJANDRO (generalized anxiety disorder): Status: Acute (10) Diabetic ophthalmopathy: Status: Acute (11) Coronary artery disease: Status: Acute Qualifiers: Coronary Disease-Associated Artery/Lesion type: [place] artery [place] vs. transplanted heart: [place] heart Associated angina: without angina Qualified Code(s): I25.10 - Atherosclerotic heart disease of [place] coronary artery without angina pectoris (12) Diabetic neuropathy: Status: Acute Qualifiers: Diabetes mellitus type: type 1 Diabetes mellitus complication detail: diabetic polyneuropathy Qualified Code(s): E10.42 - Type 1 diabetes mellitus with diabetic polyneuropathy Plan This is a 41-year-old female with multiple admissions wanted to because of the pain Plan: 1.? Continue current medication.? Decreased Ativan to 1 mg oral twice daily. 2.? Continue every 15 minute checks for safety. 3.? Encourage individual, group and milieu therapies. 4.? Encourage sober living treatment after discharge at the highest level of care to which she is willing to commit. 5.? As we decreased the Ativan we will need to assess safety and plan for discharge. Involuntary Hold Information 96 Hour Hold: 96 Hour Involuntary Admission: Yes 96 Hour Hold Ending Date: 09/15/21 96 Hour Hold Ending Time: 00:01 Attestations NPU Medical Necessity Statement*: Inpatient hospitalization is medically necessary and the clinically appropriate intervention at this time.? We will initiate medications and make changes as indicated.? Likely length of stay 1-3 days. 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 [employer] Fwd Diagnoses Depression F32.9 Depression Type: unspecified Suicidal ideation R45.851 Diabetes mellitus type 1 E10.65 Diabetes mellitus complication status: with hyperglycemia Diabetic gastroparesis E11.43; K31.84 Anemia of chronic disease D63.8 Below-knee amputation of left lower extremity S88.112A Insomnia G47.01 Insomnia type: due to medical condition GERD (gastroesophageal reflux disease) K21.9 Esophagitis presence: without esophagitis ALEJANDRO (generalized anxiety disorder) F41.1 Diabetic ophthalmopathy E11.39 Coronary artery disease I25.10 Coronary Disease-Associated Artery/Lesion type: [place] artery [place] vs. transplanted heart: [place] heart Associated angina: without angina Diabetic neuropathy E10.42 Diabetes mellitus type: type 1 Diabetes mellitus complication detail: diabetic polyneuropathy
[2021-09-17 16:02] LABS: Glucose Point of Care 278 mg/dL (70-110)
[2021-09-17 17:27] VITALS: RESP 14; O2SAT 98
[2021-09-17] MEDS: insulin lispro 100 unit/1 mL SUBCUT ×2 (19:03→20:57)
[2021-09-17 20:31] LABS: Glucose Point of Care 195 mg/dL (70-110)
[2021-09-17] MEDS: insulin glargine 100 units/1 mL 30 UNIT SUBCUT (20:57)
[2021-09-17] MEDS: ropinirole 1 mg Tablet PO (20:57)
[2021-09-17] MEDS: quetiapine 300 mg Tablet PO (20:57)
--- NOTE | 2021-09-17 20:57 | PC.NURSE ---
Right toe with dry scab without drainage noted. Patient voices right lateral foot pain with light palpation. No redness or swelling noted.
[2021-09-17 21:28] VITALS: BP 110/67; PULSE 68; RESP 16; TEMP 36.6; O2SAT 99
[2021-09-18] MEDS: oxymetazoline 0.05% Nasal Spray 15 mL 2 SPRAY NOSTRIL-R ×2 (00:47→10:14)
[2021-09-18 00:48] VITALS: RESP 20
[2021-09-18] MEDS: trazodone 50 mg Tablet PO ×2 (00:48→20:25)
[2021-09-18] MEDS: oxyCODONE 5 mg IR Tab/Cap 10 MG PO ×3 (00:48→20:25)
[2021-09-18] MEDS: ibuprofen 800 mg tablet PO (04:41)
[2021-09-18] MEDS: cyclobenzaprine 10 mg Tablet PO ×2 (04:41→20:25)
[2021-09-18] MEDS: hyDROXYzine 25 mg Capsule 50 MG PO ×2 (04:46→18:38)
[2021-09-18 05:12] VITALS: BP 121/72; PULSE 79; RESP 20; TEMP 36.4; O2SAT 98
[2021-09-18 05:32] LABS: Glucose Point of Care 158 mg/dL (70-110)
[2021-09-18] MEDS: duloxetine 30 mg Capsule 60 MG PO ×2 (08:19→17:26)
[2021-09-18] MEDS: docusate sodium 100 mg Capsule PO ×2 (08:19→17:26)
[2021-09-18] MEDS: tamsulosin 0.4 mg Capsule PO (08:19)
[2021-09-18] MEDS: ferrous sulfate EC 325 mg Tablet PO (08:19)
[2021-09-18] MEDS: atorvastatin 40 mg Tablet PO (08:19)
[2021-09-18] MEDS: metoprolol succinate ER (24 HR) 50 mg Tablet PO (08:19)
[2021-09-18 08:20] VITALS: RESP 16
[2021-09-18] MEDS: pantoprazole DR 40 mg Tablet PO ×2 (08:21→17:26)
[2021-09-18] MEDS: insulin lispro 100 unit/1 mL SUBCUT ×3 (08:21→20:26)
[2021-09-18] MEDS: LORazepam 1 mg Tablet PO ×2 (08:21→17:26)
[2021-09-18] MEDS: gabapentin 300 mg Capsule 600 MG PO ×4 (08:21→20:24)
[2021-09-18] MEDS: lidocaine 5% Patch 1 PATCH TOPICAL (09:26)
[2021-09-18] MEDS: amlodipine 10 mg Tablet PO (09:27)
[2021-09-18] MEDS: OLANZapine 5 mg ODT PO ×2 (10:14→18:38)
[2021-09-18 11:33] LABS: Glucose Point of Care 127 mg/dL (70-110)
[2021-09-18] MEDS: doxycycline 100 mg Tablet PO ×2 (11:45→20:25)
[2021-09-18] MEDS: benztropine 1 mg Tablet PO (11:48)
--- NOTE | 2021-09-18 12:21 | NPU.GN ---
[facility] Topic:[place] Group Activity General Mood of Group: Cherrie did attend and participate in group today. Her hygiene was poor. She was a bit to herself today.
[2021-09-18 14:00] VITALS: BP 115/75; PULSE 70; RESP 18; TEMP 36.4; O2SAT 96
[2021-09-18 16:47] LABS: Glucose Point of Care 180 mg/dL (70-110)
--- NOTE | 2021-09-18 17:57 | W.PM.NPUPNS ---
Subjective NPU Subjective: Interval history: Patient presents today reporting continued progress. Some reports the pain but overall no new complaints and increase activity, increase time out of bed. We discussed that we would work with her in connecting with the pain clinic. She agreed to get her Covid vaccination we discussed the likelihood of discharge on Saturday. Mental Status Exam MSE Comments: This is an overweight white female in hospital scrubs with limited grooming and eye contact.? 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 No abnormal movements except for psychomotor retardation.? More cooperative with exam in no acute distress.? Speech was decreased rate and volume.? Mood described as okay, affect congruent.? Thought process organized.? Thought content: Patient denied suicidal ideation or, homicidal ideation, there were no delusions reported or noted, there and she denied auditory or visual hallucinations.? Attention and concentration were intact and memory appeared limited but none were formally tested.? She is alert and oriented x3.? Insight and judgment are limited,? and impulse control is limited versus impaired. Vitals/I&O/Wt Last Vital Signs Temp 97.4 F L 09/18/21 21:59 Pulse 91 09/18/21 21:59 Resp 18 09/18/21 21:59 BP 138/75 09/18/21 21:59 Pulse Ox 100 09/18/21 21:59 Weight last 48 hrs Weight 90.718 kg Data NPU : 09/13/21 12:35 09/11/21 16:28 A&P Assessment and plan (1) Depression: Status: Acute Qualifiers: Depression Type: unspecified Qualified Code(s): F32.9 - Major depressive disorder, single episode, unspecified (2) Suicidal ideation: Status: Acute (3) Diabetes mellitus type 1: Status: Chronic Qualifiers: Diabetes mellitus complication status: with hyperglycemia Qualified Code(s): E10.65 - Type 1 diabetes mellitus with hyperglycemia (4) Diabetic gastroparesis: Status: Chronic (5) Anemia of chronic disease: Status: Acute (6) Below-knee amputation of left lower extremity: Status: Acute (7) Insomnia: Status: Acute Qualifiers: Insomnia type: due to medical condition Qualified Code(s): G47.01 - Insomnia due to medical condition (8) GERD (gastroesophageal reflux disease): Status: Acute Qualifiers: Esophagitis presence: without esophagitis Qualified Code(s): K21.9 - Gastro-esophageal reflux disease without esophagitis (9) ALEJANDRO (generalized anxiety disorder): Status: Acute (10) Diabetic ophthalmopathy: Status: Acute (11) Coronary artery disease: Status: Acute Qualifiers: Coronary Disease-Associated Artery/Lesion type: [place] artery [place] vs. transplanted heart: [place] heart Associated angina: without angina Qualified Code(s): I25.10 - Atherosclerotic heart disease of [place] coronary artery without angina pectoris (12) Diabetic neuropathy: Status: Acute Qualifiers: Diabetes mellitus type: type 1 Diabetes mellitus complication detail: diabetic polyneuropathy Qualified Code(s): E10.42 - Type 1 diabetes mellitus with diabetic polyneuropathy (13) Low back pain: Status: Acute (14) Pain of amputation stump of left lower extremity: Status: Acute (15) Hypertension: Status: Chronic Qualifiers: Hypertension type: unspecified Qualified Code(s): I10 - Essential (primary) hypertension Plan This is a 41-year-old female with multiple admissions wanted to because of the pain Plan: 1.? Continue current medication.? Decreased Ativan to 1 mg oral twice daily. 2.? Continue every 15 minute checks for safety. 3.? Encourage individual, group and milieu therapies. 4.? Encourage sober living treatment after discharge at the highest level of care to which she is willing to commit. 5.? As we decreased the Ativan we will need to assess safety and plan for discharge. Involuntary Hold Information 96 Hour Hold: 96 Hour Involuntary Admission: Yes 96 Hour Hold Ending Date: 09/15/21 96 Hour Hold Ending Time: 00:01 Attestations NPU Medical Necessity Statement*: Inpatient hospitalization is medically necessary and the clinically appropriate intervention at this time.? We will initiate medications and make changes as indicated.? Likely length of stay 1-3 days. 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 [facility] Fwd Diagnoses Depression F32.9 Depression Type: unspecified Suicidal ideation R45.851 Diabetes mellitus type 1 E10.65 Diabetes mellitus complication status: with hyperglycemia Diabetic gastroparesis E11.43; K31.84 Anemia of chronic disease D63.8 Below-knee amputation of left lower extremity S88.112A Insomnia G47.01 Insomnia type: due to medical condition GERD (gastroesophageal reflux disease) K21.9 Esophagitis presence: without esophagitis ALEJANDRO (generalized anxiety disorder) F41.1 Diabetic ophthalmopathy E11.39 Coronary artery disease I25.10 Coronary Disease-Associated Artery/Lesion type: [place] artery [place] vs. transplanted heart: [place] heart Associated angina: without angina Diabetic neuropathy E10.42 Diabetes mellitus type: type 1 Diabetes mellitus complication detail: diabetic polyneuropathy Low back pain M54.5 Pain of amputation stump of left lower extremity T87.89; M79.605 Hypertension I10 Hypertension type: unspecified
[2021-09-18 20:23] LABS: Glucose Point of Care 436 mg/dL (70-110)
[2021-09-18] MEDS: ropinirole 1 mg Tablet PO (20:24)
[2021-09-18 20:25] VITALS: RESP 20
[2021-09-18] MEDS: quetiapine 300 mg Tablet PO (20:25)
[2021-09-18] MEDS: insulin glargine 100 units/1 mL 30 UNIT SUBCUT (20:26)
[2021-09-18 21:59] VITALS: BP 138/75; PULSE 91; RESP 18; TEMP 36.3; O2SAT 100
[2021-09-19 06:00] VITALS: BP 97/68; PULSE 69; RESP 17; TEMP 36.3; O2SAT 97
[2021-09-19 06:59] LABS: Glucose Point of Care 427 mg/dL (70-110)
[2021-09-19 07:44] VITALS: RESP 16
[2021-09-19] MEDS: oxyCODONE 5 mg IR Tab/Cap 10 MG PO ×3 (07:44→20:58)
[2021-09-19] MEDS: cyclobenzaprine 10 mg Tablet PO ×2 (07:44→20:58)
[2021-09-19] MEDS: lidocaine 5% Patch 1 PATCH TOPICAL ×2 (09:11→16:08)
[2021-09-19] MEDS: insulin lispro 100 unit/1 mL SUBCUT ×2 (09:11→20:57)
[2021-09-19] MEDS: pantoprazole DR 40 mg Tablet PO ×2 (09:13→17:07)
[2021-09-19] MEDS: tamsulosin 0.4 mg Capsule PO (09:13)
[2021-09-19] MEDS: ferrous sulfate EC 325 mg Tablet PO (09:13)
[2021-09-19] MEDS: LORazepam 1 mg Tablet PO ×2 (09:13→17:07)
[2021-09-19] MEDS: duloxetine 30 mg Capsule 60 MG PO ×2 (09:13→17:07)
[2021-09-19] MEDS: amlodipine 10 mg Tablet PO (09:13)
[2021-09-19] MEDS: gabapentin 300 mg Capsule 600 MG PO ×4 (09:13→20:58)
[2021-09-19] MEDS: metoprolol succinate ER (24 HR) 50 mg Tablet PO (09:13)
[2021-09-19] MEDS: atorvastatin 40 mg Tablet PO (09:13)
[2021-09-19] MEDS: docusate sodium 100 mg Capsule PO ×2 (09:13→17:07)
[2021-09-19] MEDS: ibuprofen 800 mg tablet PO (09:16)
[2021-09-19] MEDS: doxycycline 100 mg Tablet PO ×2 (10:59→20:58)
[2021-09-19 11:01] LABS: Glucose Point of Care 119 mg/dL (70-110)
--- NOTE | 2021-09-19 13:07 | NPU.GN ---
[facility] Topic: Triggers, Coping Skills, Crisis Intervention Plan General Mood of Group: Cherrei did not attend group this morning and wanted to sleep she did not feel good.
[2021-09-19 14:00] VITALS: BP 104/66; PULSE 66; RESP 16; TEMP 36.7; O2SAT 98
--- NOTE | 2021-09-19 14:16 | P.NPUPN_ITS ---
Subjective NPU Subjective: Interval history: Patient presents today reporting that she is feeling a little better and feels like she might be ready tomorrow morning. Her greatest concern is whether she will have medication for anxiety after discharge. We discussed that we would decrease the Ativan but allow her to have some after discharge with a plan for her outside provider to determine whether or not continuing it is warranted. She does continue to have some reports of pain related to her foot and we agreed we would work with the treatment team to make sure she appropriate appointments to manage those issues. Mental Status Exam MSE Comments: This is an overweight white female in hospital scrubs with limited grooming and eye contact.? 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 No abnormal movements except for improving psychomotor retardation.? More cooperative with exam in no acute distress.? Speech was decreased rate and vo lume.? Mood described as a little better, affect congruent.? Thought process organized.? Thought content: Patient denied suicidal ideation or, homicidal ideation, there were no delusions reported or noted, there and she denied auditory or visual hallucinations.? Attention and concentration were intact and memory appeared limited but none were formally tested.? She is alert and oriented x3.? Insight and judgment are limited, but improving and impulse control is limited and improving. Vitals/I&O/Wt Last Vital Signs Temp 98.0 F 09/19/21 14:00 Pulse 66 09/19/21 14:00 Resp 16 09/19/21 14:00 BP 104/66 09/19/21 14:00 Pulse Ox 98 09/19/21 14:00 Data NPU : 09/19/21 21:48 09/11/21 16:28 A&P Assessment and plan (1) Depression: Status: Acute Qualifiers: Depression Type: unspecified Qualified Code(s): F32.9 - Major depressive disorder, single episode, unspecified (2) Suicidal ideation: Status: Acute (3) Diabetes mellitus type 1: Status: Chronic Qualifiers: Diabetes mellitus complication status: with hyperglycemia Qualified Code(s): E10.65 - Type 1 diabetes mellitus with hyperglycemia (4) Diabetic gastroparesis: Status: Chronic (5) Anemia of chronic disease: Status: Acute (6) Below-knee amputation of left lower extremity: Status: Acute (7) Insomnia: Status: Acute Qualifiers: Insomnia type: due to medical condition Qualified Code(s): G47.01 - Insomnia due to medical condition (8) GERD (gastroesophageal reflux disease): Status: Acute Qualifiers: Esophagitis presence: without esophagitis Qualified Code(s): K21.9 - Gastro-esophageal reflux disease without esophagitis (9) ALEJANDRO (generalized anxiety disorder): Status: Acute (10) Diabetic ophthalmopathy: Status: Acute (11) Coronary artery disease: Status: Acute Qualifiers: Coronary Disease-Associated Artery/Lesion type: [place] artery [place] vs. transplanted heart: [place] heart Associated angina: without angina Qualified Code(s): I25.10 - Atherosclerotic heart disease of [place] coronary a rtery without angina pectoris (12) Diabetic neuropathy: Status: Acute Qualifiers: Diabetes mellitus type: type 1 Diabetes mellitus complication detail: diabetic polyneuropathy Qualified Code(s): E10.42 - Type 1 diabetes mellitus with diabetic polyneuropathy (13) Low back pain: Status: Acute (14) Hypertension: Status: Chronic Qualifiers: Hypertension type: unspecified Qualified Code(s): I10 - Essential (primary) hypertension (15) History of financial difficulties: Status: Acute Plan This is a 41-year-old female with multiple admissions wanted to because of the pain Plan: 1.? Continue current medication.? Decreased Ativan to 0.5 mg oral twice daily. 2.? Continue every 15 minute checks for safety. 3.? Encourage individual, group and milieu therapies. 4.? Encourage sober living treatment after discharge at the highest level of care to which she is willing to commit. 5.? Plan for discharge in the morning.. Involuntary Hold Information 96 Hour Hold: 96 Hour Involuntary Admission: Yes 96 Hour Hold Ending Date: 09/15/21 96 Hour Hold Ending Time: 00:01 Attestations NPU Medical Necessity Statement*: Inpatient hospitalization is medically necessary and the clinically appropriate intervention at this time.? We will initiate medications and make changes as indicated.? Likely length of stay 1-2 days. 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[employer] Fwd Diagnoses Depression F32.9 Depression Type: unspecified Suicidal ideation R45.851 Diabetes mellitus type 1 E10.65 Diabetes mellitus complication status: with hyperglycemia Diabetic gastroparesis E11.43; K31.84 Anemia of chronic disease D63.8 Below-knee amputation of left lower extremity S88.112A Insomnia G47.01 Insomnia type: due to medical condition GERD (gastroesophageal reflux disease) K21.9 Esophagitis presence: without esophagitis ALEJANDRO (generalized anxiety disorder) F41.1 Diabetic ophthalmopathy E11.39 Coronary artery disease I25.10 Coronary Disease-Associated Artery/Lesion type: [place] artery [place] vs. transplanted heart: [place] heart Associated angina: without angina Diabetic neuropathy E10.42 Diabetes mellitus type: type 1 Diabetes mellitus complication detail: diabetic polyneuropathy Low back pain M54.5 Hypertension I10 Hypertension type: unspecified History of financial difficulties Z87.198
[2021-09-19 14:28] VITALS: RESP 14; O2SAT 98
[2021-09-19] MEDS: sennosides-docusate Tablet 1 TAB PO (14:28)
[2021-09-19 15:46] LABS: Glucose Point of Care 260 mg/dL (70-110)
[2021-09-19 20:56] LABS: Glucose Point of Care 463 mg/dL (70-110)
[2021-09-19] MEDS: insulin glargine 100 units/1 mL 30 UNIT SUBCUT (20:57)
[2021-09-19 20:58] VITALS: RESP 20
[2021-09-19] MEDS: ropinirole 1 mg Tablet PO (20:58)
[2021-09-19] MEDS: quetiapine 300 mg Tablet PO (20:58)
[2021-09-19 21:20] VITALS: BP 114/74; PULSE 64; RESP 16; TEMP 36.9; O2SAT 99
[2021-09-19 21:55] LABS: Basophils % 0.3 %; Eosinophils # 0.2 10^3/uL (0.0-0.8); Eosinophils % 3.9 %; Hematocrit 26.9 % (37.0-47.0); Hemoglobin 8.1 g/dL (11.5-15.3); Lymphocytes # 1.9 10^3/uL (0.8-4.8); Lymphocytes % 33.2 %; Mean Corpuscular HGB Conc 30.1 g/dL (30.0-36.0); Mean Corpuscular Hemoglobin 25.6 pg (28.0-34.0); Mean Corpuscular Volume 84.9 fl (81-99); Mean Platelet Volume 8.3 fL (7.4-10.4); Monocytes # 0.3 10^3/uL (0.2-0.9); Monocytes % 5.6 %; Neutrophils # 3.26 10^3/uL (1.8-7.7); Neutrophils % 55.8 %; Nucleated Red Blood Cells % 0 %; Platelet Count 384 10^3/cmm (130-400); Red Blood Count 3.17 10^6/uL (4.1-5.3); Red Cell Distribution Width 15.5 % (12.1-15.1); White Blood Count 5.9 10^3/uL (4.0-10.0)
[2021-09-20] MEDS: hyDROXYzine 25 mg Capsule 50 MG PO ×2 (01:24→14:40)
[2021-09-20 05:41] VITALS: RESP 22
[2021-09-20] MEDS: oxyCODONE 5 mg IR Tab/Cap 10 MG PO ×3 (05:41→17:37)
[2021-09-20 06:00] VITALS: BP 95/57; PULSE 75; RESP 20; TEMP 36.8; O2SAT 98
[2021-09-20 06:49] LABS: Glucose Point of Care 119 mg/dL (70-110)
[2021-09-20] MEDS: atorvastatin 40 mg Tablet PO (09:18)
[2021-09-20] MEDS: tamsulosin 0.4 mg Capsule PO (09:18)
[2021-09-20] MEDS: docusate sodium 100 mg Capsule PO ×2 (09:18→17:37)
[2021-09-20] MEDS: amlodipine 10 mg Tablet PO (09:19)
[2021-09-20] MEDS: metoprolol succinate ER (24 HR) 50 mg Tablet PO (09:19)
[2021-09-20] MEDS: pantoprazole DR 40 mg Tablet PO ×2 (09:19→17:37)
[2021-09-20] MEDS: ferrous sulfate EC 325 mg Tablet PO (09:19)
[2021-09-20] MEDS: duloxetine 30 mg Capsule 60 MG PO ×2 (09:19→17:37)
[2021-09-20] MEDS: LORazepam 0.5 mg Tablet PO ×2 (09:19→17:37)
[2021-09-20] MEDS: gabapentin 300 mg Capsule 600 MG PO ×4 (09:19→21:32)
[2021-09-20] MEDS: cyclobenzaprine 10 mg Tablet PO (09:25)
[2021-09-20] MEDS: acetaminophen 325 mg Tablet 650 MG PO (11:13)
[2021-09-20 11:14] VITALS: RESP 14; O2SAT 98
[2021-09-20] MEDS: doxycycline 100 mg Tablet PO (11:14)
[2021-09-20 11:33] LABS: Glucose Point of Care 111 mg/dL (70-110)
[2021-09-20] MEDS: lidocaine 5% Patch 2 PATCH TOPICAL (12:15)
[2021-09-20 14:00] VITALS: BP 118/78; PULSE 106; RESP 18; TEMP 36.6; O2SAT 98
[2021-09-20] MEDS: ondansetron 4 MG Tablet 8 MG PO (14:38)
[2021-09-20] MEDS: ibuprofen 800 mg tablet PO (15:00)
[2021-09-20] MEDS: OLANZapine 5 mg ODT PO (15:00)
--- NOTE | 2021-09-20 16:26 | W.PM.NPUPNS ---
Subjective NPU Subjective: Interval history: Patient presents today reporting that she was open to the possibility of discharge but was focused on ensuring that she had the right medications. We discussed the concern surrounding the revolving door this plan created by her coming in getting medications but is unclear if home is a safe environment for her or her medications. We have been trying we discussed, to find a home health agency so we can have better stewardship over the medications and create a safer environment and less likelihood for recidivism back to the hospital. We agreed to have a social work team double down the efforts for community support and consider discharge when support obtained. Mental Status Exam MSE Comments: This is an overweight white female in hospital scrubs with limited grooming and eye contact.? With notable below-knee amputation on her left leg and a significant abrasion in the middle top of her forehead that seems different from the last time and member service representative of continued head-banging which is resolving No abnormal movements except for lessening psychomotor retardation.? More cooperative with exam in no acute distress.? Speech was decreased rate and volume.? Mood described as a little better, affect congruent.? Thought process organized.? Thought content: Patient denied suicidal ideation or, homicidal ideation, there were no delusions reported or noted, there and she denied auditory or visual hallucinations.? Attention and concentration were intact and memory appeared limited but none were formally tested.? She is alert and oriented x3.? Insight and judgment are limited, but improving and impulse control is limited and improving. Vitals/I&O/Wt Last Vital Signs Temp 97.8 F 09/20/21 14:00 Pulse 106 H 09/20/21 14:00 Resp 18 09/20/21 14:00 BP 118/78 09/20/21 14:00 Pulse Ox 98 09/20/21 14:00 Data NPU : 09/19/21 21:48 09/11/21 16:28 A&P Assessment and plan (1) Depression: Status: Acute Qualifiers: Depression Type: unspecified Qualified Code(s): F32.9 - Major depressive disorder, single episode, unspecified (2) Diabetes mellitus type 1: Status: Chronic Qualifiers: Diabetes mellitus complication status: with hyperglycemia Qualified Code(s): E10.65 - Type 1 diabetes mellitus with hyperglycemia (3) Suicidal ideation: Status: Acute (4) Diabetic gastroparesis: Status: Chronic (5) Anemia of chronic disease: Status: Acute (6) Below-knee amputation of left lower extremity: Status: Acute (7) Insomnia: Status: Acute Qualifiers: Insomnia type: due to medical condition Qualified Code(s): G47.01 - Insomnia due to medical condition (8) GERD (gastroesophageal reflux disease): Status: Acute Qualifiers: Esophagitis presence: without esophagitis Qualified Code(s): K21.9 - Gastro-esophageal reflux disease without esophagitis (9) ALEJANDRO (generalized anxiety disorder): Status: Acute (10) Noncompliance: Status: Acute (11) Diabetic ophthalmopathy: Status: Acute (12) Coronary artery disease: Status: Acute Qualifiers: Coronary Disease-Associated Artery/Lesion type: [place] artery [place] vs. transplanted heart: [place] heart Associated angina: without angina Qualified Code(s): I25.10 - Atherosclerotic heart disease of [place] coronary artery without angina pectoris (13) Diabetic neuropathy: Status: Acute Qualifiers: Diabetes mellitus type: type 1 Diabetes mellitus complication detail: diabetic polyneuropathy Qualified Code(s): E10.42 - Type 1 diabetes mellitus with diabetic polyneuropathy (14) Suicide attempt: Status: Acute (15) Low back pain: Status: Acute (16) Pain of amputation stump of left lower extremity: Status: Acute (17) Hypertension: Status: Chronic Qualifiers: Hypertension type: unspecified Qualified Code(s): I10 - Essential (primary) hypertension Plan This is a 41-year-old female with multiple admissions wanted to because of the pain Plan: 1.? Continue current medication.? Decreased Ativan to 0.5 mg oral twice daily. 2.? Continue every 15 minute checks for safety. 3.? Encourage individual, group and milieu therapies. 4.? Encourage sober living treatment after discharge at the highest level of care to which she is willing to commit. 5.? Plan for discharge as soon as some in-home support/home health is identified. Involuntary Hold Information 96 Hour Hold: 96 Hour Involuntary Admission: Yes 96 Hour Hold Ending Date: 09/15/21 96 Hour Hold Ending Time: 00:01 Attestations NPU Medical Necessity Statement*: Inpatient hospitalization is medically necessary and the clinically appropriate intervention at this time.? We will initiate medications and make changes as indicated.? Likely length of stay 1-2 days. 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 Code Acute Flame Cutting Machine Operator Helper for Chg Fwd Diagnoses Depression F32.9 Depression Type: unspecified Diabetes mellitus type 1 E10.65 Diabetes mellitus complication status: with hyperglycemia Suicidal ideation R45.851 Diabetic gastroparesis E11.43; K31.84 Anemia of chronic disease D63.8 Below-knee amputation of left lower extremity S88.112A Insomnia G47.01 Insomnia type: due to medical condition GERD (gastroesophageal reflux disease) K21.9 Esophagitis presence: without esophagitis ALEJANDRO (generalized anxiety disorder) F41.1 Noncompliance Z91.19 Diabetic ophthalmopathy E11.39 Coronary artery disease I25.10 Coronary Disease-Associated Artery/Lesion type: [place] artery [place] vs. transplanted heart: [place] heart Associated angina: without angina Diabetic neuropathy E10.42 Diabetes mellitus type: type 1 Diabetes mellitus complication detail: diabetic polyneuropathy Suicide attempt T14.91XA Low back pain M54.5 Pain of amputation stump of left lower extremity T87.89; M79.605 Hypertension I10 Hypertension type: unspecified
[2021-09-20 17:37] VITALS: RESP 14; O2SAT 98
[2021-09-20] MEDS: ropinirole 1 mg Tablet PO (21:32)
[2021-09-20] MEDS: quetiapine 300 mg Tablet PO (21:32)
[2021-09-20] MEDS: insulin glargine 100 units/1 mL 30 UNIT SUBCUT (21:44)
[2021-09-20 21:55] LABS: Glucose Point of Care 277 mg/dL (70-110)
[2021-09-20 22:00] VITALS: BP 81/52; PULSE 75; RESP 12; TEMP 36.6; O2SAT 94
[2021-09-20] MEDS: insulin lispro 100 unit/1 mL SUBCUT (22:07)
[2021-09-20] MEDS: trazodone 50 mg Tablet PO (22:15)
[2021-09-21] MEDS: doxycycline 100 mg Tablet PO ×3 (00:11→23:08)
[2021-09-21] MEDS: hyDROXYzine 25 mg Capsule 50 MG PO ×2 (01:53→16:14)
[2021-09-21] MEDS: cyclobenzaprine 10 mg Tablet PO ×2 (01:53→18:19)
--- NOTE | 2021-09-21 02:25 | PC.NURSE ---
1736 Patient received Oxycodone 10mg po for pain. This was effective as patient was in her bed resting quietly until around 2129. She came to the nurses desk and asked for something to help her sleep. 2214 Trazadone 50mg po was given for insomnia. This was effective until 149. She came to the nurse's station and said she couldn't get back to sleep and was anxious. Flexeril 10mg po and Vistaril 50mg po was given. This was effective as the patient is resting quietly.
[2021-09-21] MEDS: trazodone 50 mg Tablet PO ×3 (04:00→23:21)
[2021-09-21] MEDS: oxymetazoline 0.05% Nasal Spray 15 mL 2 SPRAY NOSTRIL-R (04:00)
--- NOTE | 2021-09-21 05:32 | PC.NURSE ---
0400 Patient at the nurses's station still not able to sleep well. She reports tossing and turning alot and has alot of thoughts both good and bad goiong through her mind. Per charge nurse, give patient Trazadone 50mg po instead of a higher dose medication. Medication was effective. Patient is resting quietly in her bed with her eyes closed.
[2021-09-21 06:00] VITALS: BP 106/65; PULSE 71; RESP 20; TEMP 37; O2SAT 99
[2021-09-21 07:07] LABS: Glucose Point of Care 185 mg/dL (70-110)
[2021-09-21 07:13] VITALS: RESP 18
[2021-09-21] MEDS: oxyCODONE 5 mg IR Tab/Cap 10 MG PO ×3 (07:13→23:21)
[2021-09-21] MEDS: metoprolol succinate ER (24 HR) 50 mg Tablet PO (10:36)
[2021-09-21] MEDS: ferrous sulfate EC 325 mg Tablet PO (10:36)
[2021-09-21] MEDS: gabapentin 300 mg Capsule 600 MG PO ×4 (10:36→20:09)
[2021-09-21] MEDS: pantoprazole DR 40 mg Tablet PO ×2 (10:36→17:41)
[2021-09-21] MEDS: LORazepam 0.5 mg Tablet PO ×2 (10:37→17:41)
[2021-09-21] MEDS: docusate sodium 100 mg Capsule PO ×2 (10:38→17:41)
[2021-09-21] MEDS: atorvastatin 40 mg Tablet PO (10:38)
[2021-09-21] MEDS: tamsulosin 0.4 mg Capsule PO (10:38)
[2021-09-21] MEDS: amlodipine 10 mg Tablet PO (10:38)
[2021-09-21] MEDS: duloxetine 30 mg Capsule 60 MG PO ×2 (10:39→17:41)
[2021-09-21] MEDS: insulin lispro 100 unit/1 mL SUBCUT ×4 (10:40→21:14)
[2021-09-21] MEDS: lidocaine 5% Patch 2 PATCH TOPICAL ×2 (10:42→21:25)
[2021-09-21 11:35] LABS: Glucose Point of Care 374 mg/dL (70-110)
[2021-09-21] MEDS: OLANZapine 5 mg ODT PO ×2 (12:07→20:10)
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
[2021-09-21] MEDS: haloperidol 5 mg Tablet PO (13:01)
[2021-09-21 14:00] VITALS: BP 98/55; PULSE 68; RESP 18; TEMP 36.6; O2SAT 91
[2021-09-21 16:02] LABS: Glucose Point of Care 83 mg/dL (70-110)
[2021-09-21 16:14] VITALS: RESP 18
[2021-09-21 16:54] LABS: Glucose Point of Care 151 mg/dL (70-110)
[2021-09-21] MEDS: quetiapine 300 mg Tablet PO (20:09)
[2021-09-21] MEDS: ropinirole 1 mg Tablet PO (20:10)
[2021-09-21 20:48] VITALS: BP 123/78; PULSE 66; RESP 17; TEMP 36.9; O2SAT 100
[2021-09-21 20:57] LABS: Glucose Point of Care 237 mg/dL (70-110)
[2021-09-21] MEDS: insulin glargine 100 units/1 mL 30 UNIT SUBCUT (21:14)
[2021-09-21 23:21] VITALS: RESP 18
[2021-09-22 06:00] VITALS: BP 99/62; PULSE 67; RESP 16; TEMP 36.4; O2SAT 94
[2021-09-22 07:15] VITALS: RESP 18
[2021-09-22] MEDS: cyclobenzaprine 10 mg Tablet PO (07:15)
[2021-09-22] MEDS: oxyCODONE 5 mg IR Tab/Cap 10 MG PO ×3 (07:15→21:17)
[2021-09-22 08:53] LABS: Glucose Point of Care 164 mg/dL (70-110)
[2021-09-22] MEDS: hyDROXYzine 25 mg Capsule 50 MG PO (10:59)
[2021-09-22] MEDS: benzocaine 20% 7 gm 1 APPLIC MUCOUS MEM (10:59)
[2021-09-22] MEDS: amlodipine 10 mg Tablet PO (11:00)
[2021-09-22] MEDS: ferrous sulfate EC 325 mg Tablet PO (11:00)
[2021-09-22] MEDS: tamsulosin 0.4 mg Capsule PO (11:00)
[2021-09-22] MEDS: docusate sodium 100 mg Capsule PO ×2 (11:00→17:58)
[2021-09-22] MEDS: gabapentin 300 mg Capsule 600 MG PO ×4 (11:01→20:26)
[2021-09-22] MEDS: duloxetine 30 mg Capsule 60 MG PO ×2 (11:01→17:58)
[2021-09-22] MEDS: metoprolol succinate ER (24 HR) 50 mg Tablet PO (11:02)
[2021-09-22] MEDS: LORazepam 0.5 mg Tablet PO ×2 (11:02→17:58)
[2021-09-22] MEDS: lidocaine 5% Patch 2 PATCH TOPICAL ×2 (11:02→20:33)
[2021-09-22] MEDS: pantoprazole DR 40 mg Tablet PO ×2 (11:02→17:57)
[2021-09-22] MEDS: atorvastatin 40 mg Tablet PO (11:02)
[2021-09-22] MEDS: doxycycline 100 mg Tablet PO ×2 (11:29→20:26)
[2021-09-22 11:34] LABS: Glucose Point of Care 237 mg/dL (70-110)
[2021-09-22] MEDS: insulin lispro 100 unit/1 mL SUBCUT ×3 (12:13→21:19)
[2021-09-22] MEDS: spironolactone 25 mg Tablet PO ×2 (12:14→17:58)
[2021-09-22] MEDS: OLANZapine 5 mg ODT PO (12:14)
[2021-09-22 14:00] VITALS: BP 107/70; PULSE 70; RESP 18; TEMP 36.5; O2SAT 97
[2021-09-22 15:02] VITALS: RESP 16
[2021-09-22] MEDS: haloperidol 5 mg Tablet PO (15:02)
[2021-09-22 16:31] LABS: Glucose Point of Care 200 mg/dL (70-110)
[2021-09-22] MEDS: oxymetazoline 0.05% Nasal Spray 15 mL 2 SPRAY NOSTRIL-R (18:02)
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
[2021-09-22] MEDS: ropinirole 1 mg Tablet PO (20:27)
[2021-09-22] MEDS: quetiapine 300 mg Tablet PO (20:27)
[2021-09-22] MEDS: trazodone 50 mg Tablet PO (20:28)
[2021-09-22 20:48] LABS: Glucose Point of Care 191 mg/dL (70-110)
[2021-09-22 21:17] VITALS: RESP 18; O2SAT 96
[2021-09-22] MEDS: insulin glargine 100 units/1 mL 30 UNIT SUBCUT (21:19)
[2021-09-22 22:00] VITALS: BP 107/70; PULSE 70; RESP 18; TEMP 36.5; O2SAT 96
[2021-09-23] MEDS: cyclobenzaprine 10 mg Tablet PO (00:48)
[2021-09-23] MEDS: hyDROXYzine 25 mg Capsule 50 MG PO ×3 (00:48→20:22)
[2021-09-23 06:00] VITALS: BP 112/69; PULSE 66; RESP 16; TEMP 36.7; O2SAT 93
[2021-09-23 06:45] VITALS: RESP 18
[2021-09-23] MEDS: oxyCODONE 5 mg IR Tab/Cap 10 MG PO ×3 (06:45→23:10)
[2021-09-23 07:03] LABS: Glucose Point of Care 131 mg/dL (70-110)
[2021-09-23] MEDS: ferrous sulfate EC 325 mg Tablet PO (08:47)
[2021-09-23] MEDS: pantoprazole DR 40 mg Tablet PO ×2 (08:47→17:41)
[2021-09-23] MEDS: docusate sodium 100 mg Capsule PO ×2 (08:47→17:41)
[2021-09-23] MEDS: amlodipine 10 mg Tablet PO (08:47)
[2021-09-23] MEDS: gabapentin 300 mg Capsule 600 MG PO ×4 (08:47→20:23)
[2021-09-23] MEDS: metoprolol succinate ER (24 HR) 50 mg Tablet PO (08:47)
[2021-09-23] MEDS: duloxetine 30 mg Capsule 60 MG PO ×2 (08:47→17:40)
[2021-09-23] MEDS: atorvastatin 40 mg Tablet PO (08:47)
[2021-09-23] MEDS: LORazepam 0.5 mg Tablet PO ×2 (08:47→17:41)
[2021-09-23] MEDS: spironolactone 25 mg Tablet PO (08:47)
[2021-09-23] MEDS: tamsulosin 0.4 mg Capsule PO (08:47)
[2021-09-23] MEDS: lidocaine 5% Patch 2 PATCH TOPICAL ×2 (11:18→23:17)
[2021-09-23] MEDS: doxycycline 100 mg Tablet PO ×2 (11:18→20:23)
[2021-09-23 11:27] LABS: Glucose Point of Care 206 mg/dL (70-110)
[2021-09-23] MEDS: insulin lispro 100 unit/1 mL SUBCUT ×3 (11:43→20:18)
[2021-09-23 14:00] VITALS: BP 111/74; PULSE 58; RESP 17; TEMP 36.9; O2SAT 96
[2021-09-23 14:08] VITALS: RESP 16; O2SAT 99
[2021-09-23] MEDS: OLANZapine 5 mg ODT PO (14:08)
[2021-09-23 16:42] LABS: Glucose Point of Care 229 mg/dL (70-110)
--- NOTE | 2021-09-23 17:34 | P.NPUPN_ITS ---
Subjective NPU Subjective: Interval history: Patient presents today reporting that she has reached out to family and is unable to get transportation. We discussed the treatment team's focus on ge tting her with some resource to assist with managing the pills and that likely is going to happen till Saturday. Given her recent repeat hospitalizations in the likely misappropriation of medication we discussed a plan to focus on Saturday morning as her discharge plan. She was agreeable with that given the challenges with transportation. She is however moving towards a greater interest in discharge her self. Mental Status Exam MSE Comments: This is an overweight white female in hospital scrubs with l imited grooming and eye contact.? With notable below-knee amputation on her left leg and resolving abrasion in the middle top of her forehead from previous head- banging.? No abnormal movements except for lessening psychomotor retardation.? More cooperative with exam in no acute distress.? Speech was slightly decreased rate and volume.? Mood described a little better, affect congruent.? Thought pro cess organized.? Thought content: Patient denied suicidal ideation or, homicidal ideation, there were no delusions reported or noted, there and she denied auditory or visual hallucinations.? Attention and concentration were intact and memory appeared limited but none were formally tested.? She is alert and oriented x3.? Insight and judgment are limited, but improving and impulse control is limited and improving. Vitals/I&O/Wt Last Vital Signs Temp 98.5 F 09/23/21 14:00 Pulse 58 L 09/23/21 14:00 Resp 17 09/23/21 14:00 BP 111/74 09/23/21 14:00 Pulse Ox 96 09/23/21 14:00 Data NPU : 09/19/21 21:48 09/11/21 16:28 A&P Assessment and plan (1) Depression: Status: Acute Qualifiers: Depression Type: unspecified Qualified Code(s): F32.9 - Major depressive disorder, single episode, unspecified (2) Suicidal ideation: Status: Acute (3) Diabetes mellitus type 1: Status: Chronic Qualifiers: Diabetes mellitus complication status: with hyperglycemia Qualified Code(s): E10.65 - Type 1 diabetes mellitus with hyperglycemia (4) Diabetic gastroparesis: Status: Chronic (5) Anemia of chronic disease: Status: Acute (6) Below-knee amputation of left lower extremity: Status: Acute (7) Insomnia: Status: Acute Qualifiers: Insomnia type: due to medical condition Qualified Code(s): G47.01 - Insomnia due to medical condition (8) GERD (gastroesophageal reflux disease): Status: Acute Qualifiers: Esophagitis presence: without esophagitis Qualified Code(s): K21.9 - Gastro-esophageal reflux disease without esophagitis (9) ALEJANDRO (generalized anxiety disorder): Status: Acute (10) Noncompliance: Status: Acute (11) Diabetic ophthalmopathy: Status: Acute (12) Coronary artery disease: Status: Acute Qualifiers: Coronary Disease-Associated Artery/Lesion type: [place] artery [place] vs. transplanted heart: [place] heart Associated angina: without angina Qualified Code(s): I25.10 - Atherosclerotic heart disease of [place] coronary artery without angina pectoris (13) Diabetic neuropathy: Status: Acute Qualifiers: Diabetes mellitus type: type 1 Diabetes mellitus complication detail: diabetic polyneuropathy Qualified Code(s): E10.42 - Type 1 diabetes mellitus with diabetic polyneuropathy (14) Suicide attempt: Status: Acute (15) Low back pain: Status: Acute (16) Pain of amputation stump of left lower extremity: Status: Acute (17) History of financial difficulties: Status: Acute (18) Hypertension: Status: Chronic Qualifiers: Hypertension type: unspecified Qualified Code(s): I10 - Essential (primary) hypertension Plan This is a 41-year-old female with multiple admissions wanted to because of the pain Plan: 1.? Continue current medication.? Decreased Ativan to 0.5 mg oral twice daily. 2.? Continue every 15 minute checks for safety. 3.? Encourage individual, group and milieu therapies. 4.? Encourage sober living treatment after discharge at the highest level of care to which she is willing to commit. 5.? Plan for discharge in the morning with contingencies for home health. Involuntary Hold Information 96 Hour Hold: 96 Hour Involuntary Admission: Yes 96 Hour Hold Ending Date: 09/15/21 96 Hour Hold Ending Time: 00:01 Attestations NPU Medical Necessity Statement*: Inpatient hospitalization is medically necessary and the clinically appropriate intervention at this time.? We will initiate medications and make changes as indicated.? Plan for discharge on Saturday. 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 Code Acute Director Women for Kim [facility]ie Diagnoses Depression F32.9 Depression Type: unspecified Suicidal ideation R45.851 Diabetes mellitus type 1 E10.65 Diabetes mellitus complication status: with hyperglycemia Diabetic gastroparesis E11.43; K31.84 Anemia of chronic disease D63.8 Below-knee amputation of left lower extremity S88.112A Insomnia G47.01 Insomnia type: due to medical condition GERD (gastroesophageal reflux disease) K21.9 Esophagitis presence: without esophagitis ALEJANDRO (generalized anxiety disorder) F41.1 Noncompliance Z91.19 Diabetic ophthalmopathy E11.39 Coronary artery disease I25.10 Coronary Disease-Associated Artery/Lesion type: [place] artery [place] vs. transplanted heart: [place] heart Associated angina: without angina Diabetic neuropathy E10.42 Diabetes mellitus type: type 1 Diabetes mellitus complication detail: diabetic polyneuropathy Suicide attempt T14.91XA Low back pain M54.5 Pain of amputation stump of left lower extremity T87.89; M79.605 History of financial difficulties Z87.898 Hypertension I10 Hypertension type: unspecified
[2021-09-23 20:03] LABS: Glucose Point of Care 155 mg/dL (70-110)
[2021-09-23] MEDS: ropinirole 1 mg Tablet PO (20:22)
[2021-09-23] MEDS: insulin glargine 100 units/1 mL 30 UNIT SUBCUT (20:22)
[2021-09-23] MEDS: quetiapine 300 mg Tablet PO (20:23)
[2021-09-23 21:28] VITALS: BP 122/78; PULSE 79; RESP 17; TEMP 36.3; O2SAT 99
[2021-09-23 23:10] VITALS: RESP 17; O2SAT 96
[2021-09-23] MEDS: trazodone 50 mg Tablet PO (23:10)
[2021-09-24] MEDS: trazodone 50 mg Tablet PO ×2 (01:01→20:35)
[2021-09-24] MEDS: cyclobenzaprine 10 mg Tablet PO ×3 (01:01→21:30)
--- NOTE | 2021-09-24 05:12 | PC.NURSE ---
Patient c/o anxiety and pain in right leg. Given PRN hydroxyzine and oxycodone as ordered with noted effectiveness.
[2021-09-24 06:00] VITALS: BP 115/71; PULSE 90; RESP 18; TEMP 36.9; O2SAT 98; BMI 29.5
[2021-09-24 07:04] LABS: Glucose Point of Care 142 mg/dL (70-110)
--- NOTE | 2021-09-24 09:34 | P.NPUPN_ITS ---
Subjective NPU Subjective: Interval history: Patient presents today reporting that she is doing okay. She denied any significant changes from yesterday. We discussed the plan to work with the tr eatment team tomorrow morning on transportation as well as management of controlled substances at home with a goal for discharge tomorrow and she was supportive of that plan. She reports that she is eating and sleeping fine denied any new or pressing issues. Mental Status Exam MSE Comments: This is an overweight white female in hospital scrubs with limited grooming and eye contact.? With notable below-knee amputation on her left leg and resolving abrasion in the middle top of her forehead from previous head-banging.? No abnormal movements except for lessening psychomotor retardation.? More cooperative with exam in no acute distress.? Speech was slightly decreased rate and volume.? Mood described as better, affect congruent.? Thought process organized.? Thought content: Patient denied suicidal ideation or, homicidal ideation, there were no delusions reported or noted, there and she denied auditory or visual hallucinations.? Attention and concentration were intact and memory appeared limited but none were formally tested.? She is alert and oriented x3.? Insight and judgment are limited, but improving and impulse control is limited and improving. Vitals/I&O/Wt Last Vital Signs Temp 98.5 F 09/24/21 06:00 Pulse 90 09/24/21 06:00 Resp 18 09/24/21 06:00 BP 115/71 09/24/21 06:00 Pulse Ox 98 09/24/21 06:00 Data NPU : 09/19/21 21:48 09/11/21 16:28 A&P Assessment and plan (1) Depression: Status: Acute Qualifiers: Depression Type: unspecified Qualified Code(s): F32.9 - Major depressive disorder, single episode, unspecified (2) Suicidal ideation: Status: Acute (3) Diabetes mellitus type 1: Status: Chronic Qualifiers: Diabetes mellitus complication status: with hyperglycemia Qualified Code(s): E10.65 - Type 1 diabetes mellitus with hyperglycemia (4) Diabetic gastroparesis: Status: Chronic (5) Anemia of chronic disease: Status: Acute (6) Below-knee amputation of left lower extremity: Status: Acute (7) Insomnia: Status: Acute Qualifiers: Insomnia type: due to medical condition Qualified Code(s): G47.01 - Insomnia due to medical condition (8) GERD (gastroesophageal reflux disease): Status: Acute Qualifiers: Esophagitis presence: without esophagitis Qualified Code(s): K21.9 - Gastro-esophageal reflux disease without esophagitis (9) ALEJANDRO (generalized anxiety disorder): Status: Acute (10) Noncompliance: Status: Acute (11) Diabetic ophthalmopathy: Status: Acute (12) Coronary artery disease: Status: Acute Qualifiers: Coronary Disease-Associated Artery/Lesion type: [place] artery [place] vs. transplanted heart: [place] heart Associated angina: without angina Qualified Code(s): I25.10 - Atherosclerotic heart disease of [place] coronary artery without angina pectoris (13) Diabetic neuropathy: Status: Acute Qualifiers: Diabetes mellitus type: type 1 Diabetes mellitus complication detail: diabetic polyneuropathy Qualified Code(s): E10.42 - Type 1 diabetes mellitus with diabetic polyneuropathy (14) Suicide attempt: Status: Acute (15) Low back pain: Status: Acute (16) Pain of amputation stump of left lower extremity: Status: Acute (17) History of financial difficulties: Status: Acute (18) Hypertension: Status: Chronic Qualifiers: Hypertension type: unspecified Qualified Code(s): I10 - Essential (primary) hypertension Plan This is a 41-year-old female with multiple admissions wanted to because of the pain Plan: 1.? Continue current medication.? Decreased Ativan to 0.5 mg oral twice daily. 2.? Continue every 15 minute checks for safety. 3.? Encourage individual, group and milieu therapies. 4.? Encourage sober living treatment after discharge at the highest level of care to which she is willing to commit. 5.? Plan for discharge in the morning with contingencies for home health. Involuntary Hold Information 96 Hour Hold: 96 Hour Involuntary Admission: Yes 96 Hour Hold Ending Date: 09/15/21 96 Hour Hold Ending Time: 00:01 Attestations NPU Medical Necessity Statement*: Inpatient hospitalization is medically necessary and the clinically appropriate intervention at this time.? We will initiate medications and make changes as indicated.? Likely discharge tomorrow. 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[employer] [facility] Diagnoses Depression F32.9 Depression Type: unspecified Suicidal ideation R45.851 Diabetes mellitus type 1 E10.65 Diabetes mellitus complication status: with hyperglycemia Diabetic gastroparesis E11.43; K31.84 Anemia of chronic disease D63.8 Below-knee amputation of left lower extremity S88.112A Insomnia G47.01 Insomnia type: due to medical condition GERD (gastroesophageal reflux disease) K21.9 Esophagitis presence: without esophagitis ALEJANDRO (generalized anxiety disorder) F41.1 Noncompliance Z91.19 Diabetic ophthalmopathy E11.39 Coronary artery disease I25.10 Coronary Disease-Associated Artery/Lesion type: [place] artery [place] vs. transplanted heart: [place] heart Associated angina: without angina Diabetic neuropathy E10.42 Diabetes mellitus type: type 1 Diabetes mellitus complication detail: diabetic polyneuropathy Suicide attempt T14.91XA Low back pain M54.5 Pain of amputation stump of left lower extremity T87.89; M79.605 History of financial difficulties Z87.898 Hypertension I10 Hypertension type: unspecified
[2021-09-24] MEDS: docusate sodium 100 mg Capsule PO ×2 (09:54→17:40)
[2021-09-24] MEDS: insulin lispro 100 unit/1 mL SUBCUT ×4 (09:54→20:35)
[2021-09-24] MEDS: gabapentin 300 mg Capsule 600 MG PO ×4 (09:55→20:34)
[2021-09-24] MEDS: tamsulosin 0.4 mg Capsule PO (09:55)
[2021-09-24] MEDS: amlodipine 10 mg Tablet PO (09:55)
[2021-09-24] MEDS: metoprolol succinate ER (24 HR) 50 mg Tablet PO (09:55)
[2021-09-24] MEDS: spironolactone 25 mg Tablet PO (09:55)
[2021-09-24] MEDS: doxycycline 100 mg Tablet PO ×2 (09:55→20:35)
[2021-09-24] MEDS: OLANZapine 5 mg ODT PO (09:55)
[2021-09-24] MEDS: duloxetine 30 mg Capsule 60 MG PO ×2 (09:55→17:39)
[2021-09-24] MEDS: hyDROXYzine 25 mg Capsule 50 MG PO ×2 (09:55→20:34)
[2021-09-24] MEDS: ferrous sulfate EC 325 mg Tablet PO (09:56)
[2021-09-24] MEDS: pantoprazole DR 40 mg Tablet PO ×2 (09:56→17:40)
[2021-09-24] MEDS: atorvastatin 40 mg Tablet PO (09:56)
[2021-09-24] MEDS: lidocaine 5% Patch 2 PATCH TOPICAL (09:59)
[2021-09-24] MEDS: LORazepam 0.5 mg Tablet PO ×2 (09:59→17:40)
[2021-09-24 11:25] LABS: Glucose Point of Care 211 mg/dL (70-110)
[2021-09-24] MEDS: haloperidol 5 mg Tablet PO (11:59)
[2021-09-24 14:00] VITALS: BP 103/68; PULSE 71; RESP 18; TEMP 36.8; O2SAT 100
[2021-09-24 14:22] VITALS: RESP 16
[2021-09-24] MEDS: oxyCODONE 5 mg IR Tab/Cap 10 MG PO (14:22)
[2021-09-24] MEDS: oxymetazoline 0.05% Nasal Spray 15 mL 2 SPRAY NOSTRIL-R (15:01)
[2021-09-24 16:53] LABS: Glucose Point of Care 193 mg/dL (70-110)
[2021-09-24 20:23] LABS: Glucose Point of Care 306 mg/dL (70-110)
[2021-09-24] MEDS: quetiapine 300 mg Tablet PO (20:35)
[2021-09-24] MEDS: ropinirole 1 mg Tablet PO (20:35)
[2021-09-24] MEDS: insulin glargine 100 units/1 mL 30 UNIT SUBCUT (20:40)
[2021-09-24 20:49] VITALS: BP 115/76; PULSE 70; RESP 17; TEMP 36.6; O2SAT 97
[2021-09-25] VITALS (7 sets, daily range): BP systolic 101–115; BP diastolic 64–72; PULSE 64–106; RESP 16–22; TEMP 36.1–36.6; O2SAT 94–96
[2021-09-25] MEDS: oxyCODONE 5 mg IR Tab/Cap 10 MG PO ×4 (00:56→20:26)
[2021-09-25] MEDS: hyDROXYzine 25 mg Capsule 50 MG PO ×2 (02:31→09:21)
[2021-09-25 07:18] LABS: Glucose Point of Care 199 mg/dL (70-110)
[2021-09-25] MEDS: insulin lispro 100 unit/1 mL SUBCUT ×3 (09:18→20:25)
[2021-09-25] MEDS: lidocaine 5% Patch 2 PATCH TOPICAL (09:19)
[2021-09-25] MEDS: gabapentin 300 mg Capsule 600 MG PO ×4 (09:19→20:25)
[2021-09-25] MEDS: ferrous sulfate EC 325 mg Tablet PO (09:20)
[2021-09-25] MEDS: OLANZapine 5 mg ODT PO (09:20)
[2021-09-25] MEDS: duloxetine 30 mg Capsule 60 MG PO ×2 (09:20→17:34)
[2021-09-25] MEDS: LORazepam 0.5 mg Tablet PO ×2 (09:20→17:34)
[2021-09-25] MEDS: pantoprazole DR 40 mg Tablet PO ×2 (09:21→17:34)
[2021-09-25] MEDS: atorvastatin 40 mg Tablet PO (09:21)
[2021-09-25] MEDS: doxycycline 100 mg Tablet PO ×2 (09:21→20:25)
[2021-09-25] MEDS: spironolactone 25 mg Tablet PO (09:21)
[2021-09-25] MEDS: amlodipine 10 mg Tablet PO (09:21)
[2021-09-25] MEDS: docusate sodium 100 mg Capsule PO ×2 (09:21→17:34)
[2021-09-25] MEDS: tamsulosin 0.4 mg Capsule PO (09:21)
[2021-09-25] MEDS: metoprolol succinate ER (24 HR) 50 mg Tablet PO (09:21)
[2021-09-25 10:28] LABS: Glucose Point of Care 190 mg/dL (70-110)
[2021-09-25 11:32] LABS: Glucose Point of Care 120 mg/dL (70-110)
[2021-09-25] MEDS: haloperidol 5 mg Tablet PO (12:53)
--- NOTE | 2021-09-25 13:06 | NPU.GN ---
[facility] Group Topic: Whine [place]rel Activity General Mood of Group: Cherrie did not attend group today.
--- NOTE | 2021-09-25 15:23 | P.NPUDS_ITS ---
Diagnoses at Discharge Discharge Diagnosis (1) Depression: Status: Acute Qualifiers: Depression Type: unspecified Qualified Code(s): F32.9 - Major depressive disorder, single episode, unspecified (2) Suicidal ideation: Status: Resolved (3) Diabetes mellitus type 1: Status: Chronic Qualifiers: Diabetes mellitus complication status: with hyperglycemia Qualified Code(s): E10.65 - Type 1 diabetes mellitus with hyperglycemia Permanent problem details: diagnosed age 15, history of peripheral neuropathy, gastroparesis and nephropathy (4) Diabetic gastroparesis: Status: Chronic (5) Anemia of chronic disease: Status: Acute (6) Below-knee amputation of left lower extremity: Status: Acute (7) Insomnia: Status: Acute Qualifiers: Insomnia type: due to medical condition Qualified Code(s): G47.01 - Insomnia due to medical condition (8) GERD (gastroesophageal reflux disease): Status: Acute Qualifiers: Esophagitis presence: without esophagitis Qualified Code(s): K21.9 - Gastro-esophageal reflux disease without esophagitis (9) ALEJANDRO (generalized anxiety disorder): Status: Acute (10) Noncompliance: Status: Acute (11) Diabetic ophthalmopathy: Status: Acute (12) Coronary artery disease: Status: Acute Qualifiers: Associated angina: without angina Coronary Disease-Associated Artery/Lesion type: [place] artery [place] vs. transplanted heart: [place] heart Qualified Code(s): I25.10 - Atherosclerotic heart disease of [place] coronary artery without angina pectoris Permanent problem details: hx of stenting (13) Diabetic neuropathy: Status: Acute Qualifiers: Diabetes mellitus complication detail: diabetic polyneuropathy Diabetes mellitus type: type 1 Qualified Code(s): E10.42 - Type 1 diabetes mellitus with diabetic polyneuropathy (14) Suicide attempt: Status: Acute (15) Low back pain: Status: Acute (16) Pain of amputation stump of left lower extremity: Status: Acute (17) History of financial difficulties: Status: Acute (18) Hypertension: Status: Chronic Qualifiers: Hypertension type: unspecified Qualified Code(s): I10 - Essential (primary) hypertension Reason for Visit Reason for Visit: BACK PAIN Brief History: History of Present Illness Cherrie Solomon is a 41 year old female admitted through the emergency department with the following report: Chief Complaint: Psychiatric Symptoms Stated Complaint: BACK PAIN Time Seen by Provider: 09/09/21 18:41 History of Present Illness:?? HPI Narrative: This is a 41-year-old female who left our neuropsychiatric unit yesterday.? She had come in because she was banging her head against the wall, evidently due to uncontrolled chronic pain she had said.? EMS was called her house again with the same complaint today.? She was violent, thrashing around, banging her head on the wall.? After being loaded into the ambulance, she proceeded to bang her head on the side railing and the wall of the ambula nce.? She was given ketamine in route for this.? On my evaluation she is not answering questions.? She is sitting up in the bed and three-point restraints (she has a lower extremity amputation) banging her head on the side railing.? She did tell EMS that she wanted to . MD complaint: suicidal ideation and altered mental status Onset (ago): hour(s) Duration: constant History of same: Yes Relieving factors: none Exacerbating factors: none Context: not taking psychiatric medications Associated psychiatric symptoms: depression Associated symptoms: Reports other Treatments prior to arrival: physical restraints and chemical restraints She was admitted to the neuropsychiatry unit for definitive treatment of her issues.? She continues to be trying to get herself complaining of severe back pain.? She does not know what was different.? She continues to take pain medication and says that she still has some left.? She used marijuana on the day that she went home but not yesterday.? She was unable to say how bad the pain was the day that she went home but it was much worse yesterday.? She says that she was not much more active yesterday.? He does not think that increased activity because the pain to be worse.? She says that she wants to because the pain is so bad.? She reports that she has no idea what caused her pain to be worse.? Her urine drug screen was only positive for marijuana.? Multiple admissions and each time she comes in with pain so bad that she wants to . She was just released from the hospital 2 days ago with the following discharge summary: Diagnoses at Discharge Discharge Diagnosis (1) Intentional self-harm: ? ? ? Status: Acute (2) Suicidal ideation: ? ? ? Status: Acute (3) Insomnia: ? ? ? Status: Acute ? ? ? Qualifiers: ? Insomnia type: due to medical condition? Qualified Code(s): G47.01 - Insomnia due to medical condition (4) GERD (gastroesophageal reflux disease): ? ? ? Status: Acute ? ? ? Qualifiers: ? Esophagitis presence: without esophagitis? Qualified Code(s): K21.9 - Gastro-esophageal reflux disease without esophagitis (5) ALEJANDRO (generalized anxiety disorder): ? ? ? Status: Acute (6) Noncompliance: ? ? ? Status: Acute (7) Dehiscence of amputation stump: ? ? ? Status: Acute (8) Foot osteomyelitis, right: ? ? ? Status: Acute ? ? ? Qualifiers: ? Osteomyelitis type: other chronic? Qualified Code(s): M86.671 - Other chronic osteomyelitis, right ankle and foot (9) Diabetic ophthalmopathy: ? ? ? Status: Acute (10) Coronary artery disease: ? ? ? Status: Acute ? ? ? Permanent problem details: hx of stenting ? ? ? Qualifiers: ? Coronary Disease-Associated Artery/Lesion type: [place] artery? [place] vs. transplanted heart: [place] heart? Associated angina: without angina? Qualified Code(s): I25.10 - Atherosclerotic heart disease of [place] coronary artery without angina pectoris (11) Diabetic neuropathy: ? ? ? Status: Acute ? ? ? Qualifiers: ? Diabetes mellitus type: type 1? Diabetes mellitus complication detail: diabetic polyneuropathy? Qualified Code(s): E10.42 - Type 1 diabetes mellitus with diabetic polyneuropathy (12) Amputation of toe of right foot: ? ? ? Status: Acute Reason for Visit:?? SELF HARM COMBATIVE? Brief History: History of Present Illness Cherrie Solomon is a 41 year old female who presented to the emergency department with the following report: Chief complaint: Psychiatric Symptoms Stated complaint: SELF HARM COMBATIVE Time Seen by Provider: 08/29/21 11:08 History of Present Illness:?? HPI narrative: HPI: [41]yo patient w/ hx of depression BIBA for suicidal ideation. Patient was found banging her head against the wall. EMS gave patient 250mg of IM ketamine to calm her down and stop self-harm/ On arrival, the patient is AAOx3 and cooperative with my evaluation. No focal complaints of chest pain, shortness of breath, palpitations, N/V, focal GI/ complaints. Denies HI currently. No complaints of hallucinations. Onset: acute Duration: ongoing Location: home Severity: severe Associated symptoms: Deny chest pain, dyspnea, nausea, rash, palpitations or vomiting. He was admitted to the neuropsychiatric unit for definitive treatment of those issues.? He presents reporting that this is her first psychiatric hospitalization but she is known to this ghost writer through inpatient consult.? Reports he had outpatient services at [facility] in [place] and reports that she take Cymbalta and Seroquel.? She denies smoking cigarettes drinking alcohol, does report daily marijuana the other illicit drugs but does report getting pain medication and reports that he never been to rehab or had a DUI.? She essentially reports that she is here for the same reason she was on the inpatient MedSurg unit when I saw her before which is being so depressed because her pain is not well managed.? She has a abrasion on the middle of her forehead which she reports is from banging her head from frustration.? She also showed me her thigh and for that the bruising that was notable on the right thigh related to taking a fork and hitting her leg but not piercing the skin.? About the lack of expertise that the unit has in relation to pain management and that her best option to get her pain management would be returning to the pain management clinic.? There is not to be any doctors in the hospital that are going to suggest that they had a better understanding of her situation and that her pain clinic does.? She had not been taking her Cymbalta so we discussed the risk-benefit alternatives of restarting the Cymbalta and 20 mg twice a day with a plan to discharge at the 30 mg that she was taking..? An excerpt from the consult is included below for context.? Though she has had other consultation contact later in the year last year. Hospital Course She slowly acclimated to the individual, group and milieu therapies provided.? Seroquel was increased to 200 mg and Cymbalta was rapidly increased to 120 mg daily.? Other medications were left unchanged.? She tolerated these doses and showed steady improvement during her stay.? ? She was able to contract for safety outside hospital prior to discharge.? During the hospitalization, patient had routine laboratory studies which were within normal limits except for few outliers.? Additionally there was a general medical evaluation which was also within normal limits and revealed no new acute processes. Discharge Summary: At the time of discharge, lethality was denied.? Mood and anxiety were well managed.? Patient endorsed a plan to follow-up with the aftercare recommend ations of the treatment team.? Patient was evaluated and deemed to be absent credible lethality, and had achieved the maximum benefit from an inpatient hospitalization, so was discharged. Hospital Course Hospital Course She very at one pointslowly acclimated to the individual, group and milieu therapies provided. She required [id number] medication to manage her head- banging and self-injurious behaviors. Eventually that was successful and she was tapered off of those medications which included significant Ativan. The time of discharge she was only on 0.5 mg p.o. twice daily given concerns for addiction. Significant caution was used given her recent history of self-injurious behavior by suicide attempts and great concern regarding her medications being mis. Aduring the connection with pain management as well as mental health was established as well as assistance in getting her medications checked by a nurse on a weekly basis at least. She had significant improvement and was able to contract for safety outside the hospital prior to discharge. During the hospitalization she any abnormal labs and medical issues were managed had routine laboratory studies which were within normal limits except for few outliers. Additionally there was a general medical evaluation which was also within normal limits and revealed no new acute processes. Any abnormal labs or acute nonpsychiatric medical concerns were managed by the hospitalist. Discharge Summary: At the time of discharge, she denied psychosis or lethality. Mood and anxiety were well managed. Patient endorsed a plan to avoid all drugs of abuse and follow-up with the aftercare recommendations of the treatment team. Patient was evaluated and deemed to be absent credible lethality, and had achieved the maximum benefit from an inpatient hospitalization, so was discharged. Involuntary Hold Information 96 Hour Hold: 96 Hour Involuntary Admission: Yes 96 Hour Hold Ending Date: 09/15/21 96 Hour Hold Ending Time: 00:01 Mental Status Exam MSE Comments: This is an overweight white female in hospital scrubs with limited grooming and eye contact.? With notable below-knee amputation on her left leg and resolving abrasion in the middle top of her forehead from previous head-banging.? No abnormal movements except for lessening psychomotor retardation.? More cooperative with exam in no acute distress.? Speech was slightly decreased rate and volume.? Mood described as better, ready to go home affect congruent.? Thought process organized.? Thought content: Patient denied suicidal ideation or, homicidal ideation, there were no delusions reported or noted, there and she denied auditory or visual hallucinations.? Attention and concentration were intact and memory appeared limited but none were formally tested.? She is alert and oriented x3.? Insight and judgment are limited, but improving and impulse control is limited and improving. Discharge Data Studies Completed and Pending: Completed Studies During Hospitalization Category Date Time Status CT head wo con* 7 0450 Urgent Cat Scan 09/09/21 18:42 Completed Radiology Impressions Head CT 09/09/21 18:42 IMPRESSION: Negative for intracranial injury. Laboratory Results WBC 5.9 10^3/uL (4.0- 10.0) 09/19/21 21:48 RBC 3.17 10^6/uL (4.1 -5.3) L 09/19/21 21:48 Hgb 8.1 g/dL (11.5-15 .3) L 09/19/21 21:48 Hct 26.9 % (37.0-47.0 ) L 09/19/21 21:48 MCV 84.9 fl (81-99) 09/19/21 21:48 MCH 25.6 pg (28.0-34. 0) L 09/19/21 21:48 MCHC 30.1 g/dL (30.0-3 6.0) 09/19/21 21:48 RDW 15.5 % (12.1-15.1 ) H 09/19/21 21:48 Plt Count 384 10^3/cmm (130 -400) 09/19/21 21:48 MPV 8.3 fL (7.4-10.4) 09/19/21 21:48 Neut % (Auto) 55.8 % 09/19/21 21:48 Lymph % (Auto) 33.2 % 09/19/21 21:48 [place] % (Auto) 5.6 % 09/19/21 21:48 Eos % (Auto) 3.9 % 09/19/21 21:48 Baso % (Auto) 0.3 % 09/19/21 21:48 Neut # (Auto) 3.26 10^3/uL (1.8 -7.7) 09/19/21 21:48 Lymph # (Auto) 1.9 10^3/uL (0.8- 4.8) 09/19/21 21:48 [place] # (Auto) 0.3 10^3/uL (0.2- 0.9) 09/19/21 21:48 Eos # (Auto) 0.2 10^3/uL (0.0- 0.8) 09/19/21 21:48 Baso # (Auto) 0.0 10^3/uL (0.0- 0.1) 09/19/21 21:48 Nucleated RBC % (a uto) 0 % 09/19/21 21:48 Nucleated RBCs # 0.0 /100WBC 09/19/21 21:48 Sodium 137 mmol/L (136-1 45) 09/11/21 16:28 Potassium 4.0 mmol/L (3.5-5 .1) 09/11/21 16:28 Chloride 102 mmol/L (98-10 7) 09/11/21 16:28 Carbon Dioxide 21 mmol/L (22-29) L 09/11/21 16:28 Anion Gap 18.0 (5-19) 09/11/21 16:28 BUN 26 mg/dL (6-20) H 09/11/21 16:28 Creatinine 1.3 mg/dL (0.5-0. 9) H 09/11/21 16:28 GFR Calculation 44.7 mL/min (90-1 30) L 09/11/21 16:28 Glucose 72 mg/dL (65-115) 09/11/21 16:28 POC Glucose 120 mg/dL (70-110 ) H 09/25/21 11:23 Calculated Osmolal ity 287 mOsm/kg (285- 295) 09/11/21 16:28 Calcium 8.9 mg/dL (8.5-10 .5) 09/11/21 16:28 Total Bilirubin 0.2 mg/dL (0.15-1 .2) 09/11/21 16:28 AST 32 U/L (0-32) 09/11/21 16:28 ALT 29 U/L (0-33) 09/11/21 16:28 Alkaline Phosphata se 226 IU/L (35-105) H 09/11/21 16:28 Total Protein 6.6 g/dL (6.6-8.7 ) 09/11/21 16:28 Albumin 3.4 g/dL (3.5-5.2 ) L 09/11/21 16: Globulin 3.2 g/dL (1.3-4.6 ) 09/11/21 16: Urine Color Yellow (Yellow) 09/09/21 20: Urine Appearance Clear (CLEAR) 09/09/21 20: Urine pH 7 (5-7) 09/09/21 20: Ur Specific Gravit y 1.005 (1.005-1.0 30) 09/09/21 20: Urine Protein 1+ (Negative) H 09/09/21 20: Urine Glucose (UA) Trace (Normal) H 09/09/21: Urine Ketones Negative (Negati ve) 09/09/21: Urine Blood Neg (Negative) 09/09/21 Urine Nitrate Negative (Negati ve) 09/09/21: Urine Bilirubin Neg (Negative) 09/09/21: Urine Urobilinogen Norm mg/dL (Negat sade) 09/09/21 20: Ur Leukocyte Estephania ase Negative (Negati ve) 09/09/21: Urine RBC 0-4 /hpf (0-2) H 09/09/21: Urine WBC 0-4 /hpf (0-5) H 09/09/21: Ur Squamous Epith Cells 0-4 /hpf (0-5) H 09/09/21: Amorphous Sediment Not Reportable 09/09/21: Urine Bacteria Trace /hpf (NONE) 09/09/21: Salicylates < 0.3 mg/dL (3-10 ) L 09/09/21 21: Urine Opiates Scre en Negative ng/mL (N egative) 09/09/21: Acetaminophen < 5.0 ug/mL (10-3 0) L 09/09/21 21: Ur Barbiturates Sc reen Negative ng/mL (N egative) 09/09/21: Ur Phencyclidine S crn Negative ng/mL (N egative) 09/09/21: Ur Amphetamines Sc reen Negative ng/mL (N egative) 09/09/21: U Benzodiazepines Scrn Negative ng/mL (N egative) 09/09/21 20:28 Urine Cocaine Scre en Negative ng/mL (N egative) 09/09/21 20:28 U Marijuana (THC) Screen Positive ng/mL (N egative) H 09/09/21 20:28 Ethyl Alcohol < 10 mg/dL (0-10) 09/09/21 21:02 Hepatitis A IgM Ab Non-reactive (No nreactive) 09/11/21 16:28 Hep Bs Antigen Non-reactive (No nreactive) 09/11/21 16:28 Hep B Core IgM Ab Non-reactive (No nreactive) 09/11/21 16:28 Hepatitis C Antibo dy Non-reactive (No nreactive) 09/11/21 16:28 Vitals: Last Vital Signs Temp 98 F 09/25/21 14:00 Pulse 64 09/25/21 14:00 Resp 16 09/25/21 14:00 BP 101/64 09/25/21 14:00 Pulse Ox 94 09/25/21 14:00 Discharge Plan Discharge Patient Disposition: Home Condition: Stable Prescriptions: New trazodone 50 mg Tablet 50 mg PO BEDTIME PRN (Reason: Insomnia) 30 Days Qty: 30 1RF spironolactone 25 mg Tablet 25 mg PO DAILY 30 Days Qty: 30 1RF lorazepam 0.5 mg Tablet 0.5 mg PO BID 30 Days Qty: 60 0RF Continued cyclobenzaprine 10 mg tablet 10 mg PO BID PRN (Reason: MUSCLE SPASMS) 30 Days Qty: 60 2RF hydralazine 25 mg tablet 25 mg PO QID PRN (Reason: high blood pressure) 30 Days Qty: 120 2RF Rx Instructions: take if BP >160/>100 pantoprazole 40 mg tablet,delayed release (DR/EC) 40 mg PO DAILY 30 Days Qty: 30 2RF metoclopramide HCl 10 mg tablet 10 mg PO Q6H PRN (Reason: nausea and vomiting) 30 Days Qty: 120 2RF gabapentin 600 mg tablet 600 mg PO QID 30 Days Qty: 120 2RF Lantus Solostar U-100 Insulin 100 unit/mL (3 mL) insulin pen 40 unit SUBCUT BEDTIME 30 Days Qty: 15 2RF (DME) Comfort EZ Pen [place] 33 gauge x 1/4 needle See Rx Instructions .ROUTE .MEDSUPPLY Qty: 100 2RF Rx Instructions: As directed (DME) Blood Glucose Test Strip See Rx Instructions .Route Qty: 100 11RF Rx Instructions: Use with meter to test 3 times a day. atorvastatin 40 mg tablet 40 mg PO DAILY 30 Days Qty: 30 1RF ropinirole 1 mg tablet 1 mg PO BEDTIME 30 Days Qty: 30 1RF quetiapine 100 mg Tablet 200 mg PO BEDTIME 30 Days Qty: 90 1RF ondansetron 8 mg tablet,disintegrating 8 mg PO Q12H PRN (Reason: nausea and vomiting) 30 Days Qty: 60 1RF tamsulosin 0.4 mg capsule 0.4 mg PO DAILY 30 Days Qty: 30 1RF amlodipine 10 mg tablet 10 mg PO DAILY 30 Days Qty: 30 1RF Colace 100 mg capsule 100 mg PO BID 30 Days Qty: 60 1RF oxycodone 5 mg Tablet 10 mg PO Q6H PRN (Reason: Severe Pain) 10 Days Qty: 30 0RF duloxetine 30 mg Capsule,Delayed Release(Dr/Ec) 60 mg PO BID 30 Days Qty: 120 1RF Changed Senna-S 8.6-50 mg tablet 1 tab-cap PO DAILY PRN (Reason: Constipation) 30 Days Qty: 30 1RF metoprolol succinate 25 mg tablet extended release 24 hr 50 mg PO DAILY 30 Days Qty: 60 1RF Discontinued doxycycline hyclate 100 mg tablet 100 mg PO Q12H 7 Days Qty: 14 0RF Discharge Orders: Discharge Order (Routine); Ordered 09/25/21 Ordered By: Sha Martinez Referrals: [facility] [Other] (Therapy) [facility] [Outside] - 09/27/21 9:45 am (Assessment for Casework er and [facility]) Angelic Martinez MD [Primary Care Provider] - 10/03/21 1:15 pm Discharge Diet: Diabetic Discharge Activity: Resume usual activity Patient Instructions: Opioid Safety Discharge Attestations NPU Time Spent in Discharge Care*: greater than 30 min Specific Discharge Activities: Specific discharge activities: educating patient, discussing with medical case worker/social workers/dc planners, documenting/other paperwork and evaluating patient/reviewing data Status at Discharge: Cognitive status at discharge: cognitively intact , Behavioral status at discharge: cooperative , 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 Code Acute Chg FW DC note Diagnoses Depression F32.9 Depression Type: unspecified Suicidal ideation R45.851 Diabetes mellitus type 1 E10.65 Diabetes mellitus complication status: with hyperglycemia Diabetic gastroparesis E11.43; K31.84 Anemia of chronic disease D63.8 Below-knee amputation of left lower extremity S88.112A Insomnia G47.01 Insomnia type: due to medical condition GERD (gastroesophageal reflux disease) K21.9 Esophagitis presence: without esophagitis ALEJANDRO (generalized anxiety disorder) F41.1 Noncompliance Z91.19 Diabetic ophthalmopathy E11.39 Coronary artery disease I25.10 Associated angina: without angina Coronary Disease-Associated Artery/Lesion type: [place] artery [place] vs. transplanted heart: [place] heart Diabetic neuropathy E10.42 Diabetes mellitus complication detail: diabetic polyneuropathy Diabetes mellitus type: type 1 Suicide attempt T14.91XA Low back pain M54.5 Pain of amputation stump of left lower extremity T87.89; M79.605 History of financial difficulties Z87.898 Hypertension I10 Hypertension type: unspecified
[2021-09-25] MEDS: oxymetazoline 0.05% Nasal Spray 15 mL 2 SPRAY NOSTRIL-R (15:59)
[2021-09-25 16:48] LABS: Glucose Point of Care 251 mg/dL (70-110)
[2021-09-25 20:10] LABS: Glucose Point of Care 276 mg/dL (70-110)
[2021-09-25] MEDS: insulin glargine 100 units/1 mL 30 UNIT SUBCUT (20:25)
[2021-09-25] MEDS: quetiapine 300 mg Tablet PO (20:26)
[2021-09-25] MEDS: ropinirole 1 mg Tablet PO (20:26)
== END 2021-09-25 20:30 | disposition home or self-care (01) | DRG 881 ==
LOC: ER 22:21 → NP 22:44
PROVIDERS: Internal Medicine; Admitting Provider Psychiatry & Neurology Psychiatry; Emergency Provider Emergency Medicine; PCP Family Medicine; Visit Provider Psychiatry & Neurology Psychiatry
DX: F32.9 Major depressive disorder, single episode, unspecified (principal); R45.851 Suicidal ideations; G89.4 Chronic pain syndrome; E10.22 Type 1 diabetes mellitus with diabetic chronic kidney disease; I12.9 Hypertensive chronic kidney disease with stage 1 through stage 4 chronic kidney disease, or unspecified chronic kidney disease; N18.2 Chronic kidney disease, stage 2 (mild); I25.10 Atherosclerotic heart disease of native coronary artery without angina pectoris; Z95.5 Presence of coronary angioplasty implant and graft; E10.39 Type 1 diabetes mellitus with other diabetic ophthalmic complication; E10.40 Type 1 diabetes mellitus with diabetic neuropathy, unspecified; E10.43 Type 1 diabetes mellitus with diabetic autonomic (poly)neuropathy; E10.65 Type 1 diabetes mellitus with hyperglycemia; K31.84 Gastroparesis; E78.5 Hyperlipidemia, unspecified; F43.10 Post-traumatic stress disorder, unspecified; Z87.440 Personal history of urinary (tract) infections; Z89.512 Acquired absence of left leg below knee; Z89.411 Acquired absence of right great toe; Z89.421 Acquired absence of other right toe(s); F17.210 Nicotine dependence, cigarettes, uncomplicated; M54.50 Low back pain, unspecified; G47.01 Insomnia due to medical condition; K21.9 Gastro-esophageal reflux disease without esophagitis; F41.1 Generalized anxiety disorder; Z79.891 Long term (current) use of opiate analgesic; D63.1 Anemia in chronic kidney disease; Z91.14 Patient's other noncompliance with medication regimen
CPT/HCPCS: 36415; 36416; 70450; 80053; 80074; 80306; 80307; 81001; 82962; 85014; 85018; 85025; 93005; 96372; 96374; 96375; 96376; 97110; 97150; 97161; 97165; 99285; J1200; J1630; J1815 ×2; J2060; J2405; J3486; J3490; J7030; Q0162

== ENCOUNTER 2021-10-21 14:18 | Inpatient (IN) | payer MEDICAID, SELFPAY ==
--- NOTE | 2021-10-21 14:20 | W.ED.PSYCHS ---
Documented by User: Gaurav Call MD 11/01/21 05:57 HPI - Psych General: Chief Complaint: Psychiatric Symptoms Stated Complaint: SI; BACK PAIN; CUT ON FOREARM Time Seen by Provider: 10/21/21 14:20 History of Present Illness: Ms Solomon is a 41-year-old lady with complex past medical history primarily complicated by psychiatric disorder who also has hypertension, obesity, medication compliance, diabetes who presents emergency department for various concerns. She called an ambulance for mental health evaluation which she reports is due to abdominal pain. She has a longstanding history of gastroparesis but reports that this is worse. She has generalized abdominal pain which she has difficulty characterizing. It got to the point where she was banging her head against objects and has a laceration/injury associated with this. The patient arrived in restraints by EMS. She does not report any other significant changes in health, exacerbating, or alleviating factors. She has had similar episodes in the past. She reports compliance with her medications. Onset (ago): unknown Duration: constant History of same: Yes Exacerbating factors: other Treatments prior to arrival: physical restraints If self harm: has acted on plan Review of Systems General: Reports: 10 or more systems reviewed and unremarkable except in HPI and below PFSH ED PFSH: Medical History Acute hyponatremia Acute renal failure Back pain C. 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 Nausea & vomiting Non-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 PTSD (post-traumatic stress disorder) Self-harming behavior Self-harming behavior Suicidal ideation Suicidal ideation Toe infection UTI (urinary tract infection) Surgical History Below-knee amputation of left lower extremity H/O esophagogastroduodenoscopy (12/31/20) Bile reflux gastritis, grade B esophagitis H/O exploratory laparotomy x 3 History of amputation of right forefoot Hx of cholecystectomy Previous section x 3 S/P coronary artery stent placement x 1 S/P percutaneous endoscopic gastrostomy (PEG) tube placement Family History Unknown Diabetes extensive, type II Other CHF (congestive heart failure) Social History Smoking and tobacco status: current every day smoker Quit status (tobacco): has quit using tobacco Former quit date comment: 15 yrs ago Alcohol intake: former Former alcohol use details: 15 yrs ago Household members: spouse Marital status: Sexually active: Yes (1, ) Female Reproductive History: Spontaneous abortions: No Physical Exam Const: COMMON NORMALS: alert GENERAL APPEARANCE: cooperative and well developed HENMT: COMMON NORMALS: normocephalic HEAD & SCALP: normocephalic THROAT: posterior oropharynx normal OTHER: Abrasion/contusion with superficial laceration to the midline forehead. This is not amenable to repair with stitches no bony instability. No raccoon eyes or trejo signs. No septal hematoma. Jaw alignment normal. Eye: COMMON NORMALS: conjunctivae normal CONJUNCTIVA: Yes conjunctivae normal SCLERA: sclerae normal Neck/C-Spine: COMMON NORMALS: supple GENERAL: Yes trachea midline Resp: COMMON NORMALS: normal respiratory effort and clear to auscultation bilaterally EFFORT & INSPECTION: Yes able to speak in complete sentences AUSCULTATION: clear to auscultation bilaterally Cardio: COMMON NORMALS: regular rhythm RATE: tachycardic RHYTHM: regular rhythm GI: COMMON NORMALS: Soft to palpation PALPATION: Yes Soft to palpation and No Tenderness to palpation present (GI) PERCUSSION: normal to percussion Extremity: GENERAL: Yes normal exam except as noted and No edema Neuro: COMMON NORMALS: moves all extremities SENSORIUM/ORIENTATION: Yes alert and No Orientation impaired Psych: COMMON NORMALS: mental status grossly normal and Normal thought process present THOUGHT PROCESS: Normal thought process present Course ED course: - Patient was seen and evaluated by me at bedside - Patient placed on cardiac monitors, IV access obtained - Initial evaluation notable for patient agitated presenting a threat to herself and others requiring physical restraints. Chemical restraints ordered. - Patient noted to be tachycardic, fluids ordered. - Labs notable for leukocytosis, mild hemoconcentration compared to prior. Initial metabolic panel with normal electrolytes, bicarb is decreased with increased anion gap. Additionally hyperglycemia is noted. However, ketones in both urine and serum are negative and therefore the patient is not in diabetic ketoacidosis. - Given patient's head trauma and current mental status CT imaging of the head was warranted and negative for acute intracranial pathology. Given patient's abdominal pain CT ordered and negative for acute explanation. - Patient required multiple redoses of chemical restraints with transient improvement in symptoms. - Patient reevaluated serially while in restraints as per protocol with appropriate implementation of restraint removal as clinically warranted for patient and staff safety. - After 2 L of IV fluid a repeat BMP was ordered and only showed modest improvement compared to prior. Additionally patient received two 10 mg boluses of regular insulin with only modest improvement in blood glucose. - I discussed the case with psychiatry service on-call Dr. Martinez. Due to the patient's medical abnormalities at this time she is not appropriate for psychiatry unit admission. - I discussed the case with hospitalist duplication specialist Dr Schofield who recommended 2 more liters of IV fluids and repeat BMP. - Patient care handed off to overnight ED physician Dr. Perry pending results of repeat BMP after fluids for either medicine or psychiatry service admission. - 96-hour hold paperwork filled out given patient's suicidal statements, self injury, and failure of self-care. Note: Click bubbles or prepopulated negro in note writing are used for assistance with data collection and billing and are inherently more limited than narrative and other text portions of this note. Please use narrative for additional clinical history and defer to narrative/free test for any case of contradictory information. If information appears in only free text or click bubble it should be considered present or absent as reported. Please contact note television script writer for clarifications of clinical information or contradictory information. MDM is a brief summary, contradictory or erroneous seeming information should be clarified and full note should be reviewed. Vital Signs: Vital signs: Vital Signs Temperature 97.8 F 10/27/21 03:33 Pulse Rate 78 10/27/21 12:14 Respiratory Rate 16 10/27/21 12:14 Blood Pressure 112/78 10/27/21 12:14 Pulse Oximetry 96 10/27/21 12:14 MDM - Psych Medical Records I reviewed the patient's medical records. Lab Data I reviewed the patient's lab results. : 10/23/21 20:19 10/23/21 20:19 Radiology Impressions Abdomen/Pelvis CT 10/21/21 14:36 IMPRESSION: No acute findings.Non acute findings as described above. COMMENTS: Consistent with the [employer]'s Incidental Findings Committee white paper (J Am Clarissa Radiol 2018): Any incidental renal lesion less than 1 cm or classified as too small to characterize, or any incidental cystic renal lesion characterized as simple-appearing, is likely benign. No follow-up imaging is recommended for these lesions per consensus recommendations based on imaging criteria. Head CT 10/21/21 14:36 IMPRESSION: 1. No acute intracranial abnormality. 2. Mild diffuse cerebral atrophy. Laboratory Results WBC 16.9 10^3/uL (4.0-10.0) H 10/21/21 15:50 Corrected WBC Cancelled 10/21/21 14:43 RBC 3.85 10^6/uL (4.1-5.3) L 10/21/21 15:50 Hgb 10.1 g/dL (11.5-15.3) L 10/21/21 15:50 Hct 31.0 % (37.0-47.0) L 10/21/21 15:50 MCV 80.5 fl (81-99) L 10/21/21 15:50 MCH 26.2 pg (28.0-34.0) L 10/21/21 15:50 MCHC 32.6 g/dL (30.0-36.0) 10/21/21 15:50 RDW 15.4 % (12.1-15.1) H 10/21/21 15:50 Plt Count 400 10^3/cmm (130-400) 10/21/21 15:50 MPV 8.9 fL (7.4-10.4) 10/21/21 15:50 Gran % Cancelled 10/21/21 14:43 Neut % (Auto) 91.7 % 10/21/21 15:50 Lymph % (Auto) 3.7 % 10/21/21 15:50 [place] % (Auto) 3.8 % 10/21/21 15:50 Eos % (Auto) 0.0 % 10/21/21 15:50 Baso % (Auto) 0.4 % 10/21/21 15:50 Neut # (Auto) 15.50 10^3/uL (1.8-7.7) H 10/21/21 15:50 Lymph # (Auto) 0.6 10^3/uL (0.8-4.8) L 10/21/21 15:50 [place] # (Auto) 0.6 10^3/uL (0.2-0.9) 10/21/21 15:50 Eos # (Auto) 0.0 10^3/uL (0.0-0.8) 10/21/21 15:50 Baso # (Auto) 0.1 10^3/uL (0.0-0.1) 10/21/21 15:50 Absolute Gran (auto) Cancelled 10/21/21 14:43 Nucleated RBC % (auto) 0 % 10/21/21 15:50 Nucleated RBCs # 0.0 /100WBC 10/21/21 15:50 Sodium 145 mmol/L (136-145) 10/22/21 01:28 Potassium 3.4 mmol/L (3.5-5.1) L 10/22/21 01:28 Chloride 109 mmol/L (98-107) H 10/22/21 01:28 Carbon Dioxide 21 mmol/L (22-29) L 10/22/21 01:28 Anion Gap 18.4 (5-19) 10/22/21 01:28 BUN 27 mg/dL (6-20) H 10/22/21 01:28 Creatinine 1.2 mg/dL (0.5-0.9) H 10/22/21 01:28 GFR Calculation 49.0 mL/min (90-130) L 10/22/21 01:28 Glucose 284 mg/dL (65-115) H 10/22/21 01:28 POC Glucose 309 mg/dL (70-110) H 10/21/21 22:23 Calculated Osmolality 315 mOsm/kg (285-295) H 10/22/21 01:28 Lactic Acid 2.6 mmol/L (0.5-2.2) H 10/21/21 22:29 Lactic Acid (Sepsis) 1.2 mmol/L (0.5-2.2) 10/22/21 01:28 Calcium 8.6 mg/dL (8.5-10.5) 10/22/21 01:28 Total Bilirubin 0.5 mg/dL (0.15-1.2) 10/21/21 15:50 AST 18 U/L (0-32) 10/21/21 15:50 ALT 23 U/L (0-33) 10/21/21 15:50 Alkaline Phosphatase 192 IU/L (35-105) H 10/21/21 15:50 Ammonia 20 umol/L (11-51) 10/22/21 01:28 Total Protein 8.1 g/dL (6.6-8.7) 10/21/21 15:50 Albumin 4.7 g/dL (3.5-5.2) 10/21/21 15:50 Globulin 3.4 g/dL (1.3-4.6) 10/21/21 15:50 Lipase 40 U/L (13-60) 10/21/21 15:50 HCG, Qual Negative (Negative) 10/21/21 17:16 Urine Color Straw (Yellow) 10/21/21 17:16 Urine Appearance Sl hazy (CLEAR) 10/21/21 17:16 Urine pH 5 (5-7) 10/21/21 17:16 Ur Specific [place] 1.005 (1.005-1.030) 10/21/21 17:16 Urine Protein 1+ (Negative) H 10/21/21 17:16 Urine Glucose (UA) 4+ (Normal) H 10/21/21 17:16 Urine Ketones Negative (Negative) 10/21/21 17:16 Urine Blood 2+ (Negative) H 10/21/21 17:16 Urine Nitrate Negative (Negative) 10/21/21 17:16 Urine Bilirubin Neg (Negative) 10/21/21 17:16 Urine Urobilinogen Norm mg/dL (Negative) 10/21/21 17:16 Ur Leukocyte Esterase Negative (Negative) 10/21/21 17:16 Urine RBC 0-4 /hpf (0-2) H 10/21/21 17:16 Urine WBC 25-40 /hpf (0-5) H 10/21/21 17:16 Ur Squamous Epith Cells 5-10 /hpf (0-5) H 10/21/21 17:16 Amorphous Sediment Not Reportable 10/21/21 17:16 Urine Bacteria 3+ /hpf (NONE) H 10/21/21 17:16 Salicylates < 0.3 mg/dL (3-10) L 10/21/21 15:50 Urine Opiates Screen Negative ng/mL (Negative) 10/21/21 17:16 Acetaminophen < 5.0 ug/mL (10-30) L 10/21/21 15:50 Ur Barbiturates Screen Negative ng/mL (Negative) 10/21/21 17:16 Ur Phencyclidine Scrn Negative ng/mL (Negative) 10/21/21 17:16 Ur Amphetamines Screen Negative ng/mL (Negative) 10/21/21 17:16 U Benzodiazepines Scrn Negative ng/mL (Negative) 10/21/21 17:16 Urine Cocaine Screen Negative ng/mL (Negative) 10/21/21 17:16 U Marijuana (THC) Screen Negative ng/mL (Negative) 10/21/21 17:16 Ethyl Alcohol < 10 mg/dL (0-10) 10/21/21 15:50 Serum Ketones Negative (Negative) 10/21/21 15:50 EKG Data EKG 1: I personally reviewed and interpreted this EKG as follows: EKG interpretation date: 10/21/21 EKG interpretation time: 22:15 Interpretation: Twelve-lead EKG shows a regular rhythm at a rate of 132. AR interval 128, QRS duration 102, QTc 415. Normal axis. Interpretation: Sinus tachycardia. Nonspecific ST segment abnormalities. Limited interpretation secondary to baseline moderate Discharge Plan Discharge Patient Disposition: Admitted As Inpatient Admit Provider: Sha Martinez Clinical Impression: Suicidal ideation, Intentional self-harm, Hyperglycemia, Acute dehydration Condition: Stable Discharge Diet: Regular Discharge Activity: Resume usual activity 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 Code ED Tape Edge Machine Operator for Chg Fwd Exam Comprehensive Documented by User: Pablito Perry DO 10/22/21 04:16 HPI - Psych General: Chief Complaint: Psychiatric Symptoms Stated Complaint: SI; BACK PAIN; CUT ON FOREARM Time Seen by Provider: 10/21/21 14:20 PFSH ED PFSH: Medical History Acute hyponatremia Acute renal failure Back pain C. 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 Nausea & vomiting Non-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 PTSD (post-traumatic stress disorder) Self-harming behavior Self-harming behavior Suicidal ideation Suicidal ideation Toe infection UTI (urinary tract infection) Surgical History Below-knee amputation of left lower extremity H/O esophagogastroduodenoscopy (12/31/20) Bile reflux gastritis, grade B esophagitis H/O exploratory laparotomy x 3 History of amputation of right forefoot Hx of cholecystectomy Previous section x 3 S/P coronary artery stent placement x 1 S/P percutaneous endoscopic gastrostomy (PEG) tube placement Family History Unknown Diabetes extensive, type II Other CHF (congestive heart failure) Social History Smoking and tobacco status: current every day smoker Quit status (tobacco): has quit using tobacco Former quit date comment: 15 yrs ago Alcohol intake: former Former alcohol use details: 15 yrs ago Household members: spouse Marital status: Sexually active: Yes (1, ) Face to Face: Restrn/Seclusion Events leading up to initiation: Verbalizing threat to self or others and Demonstrating self-destructive behavior (cutting, hitting estrada etc.) Evaluation of patient's immediate situation: Signs of physical distress and No signs of psychological distress Patient reaction since intervention applied: Behaviors/threats have lessened, but still present Recent labs reviewed: Yes Review of medications: Yes Patient's current medical/behavioral condition: No new concerns since last ROS Need for restraint or seclusion is: Continued Attending notified: Attending completed assessment Course Consultations: Consultation #1: horacio Time: 03: Consultation #2: adrián Time: : Vital Signs: Vital signs: Vital Signs Temperature 97.8 F 10/27/21 03:33 Pulse Rate 78 10/27/21 12:14 Respiratory Rate 16 10/27/21 12:14 Blood Pressure 112/78 10/27/21 12:14 Pulse Oximetry 96 10/27/21 12:14 [facility] - Psych Medical Decision Making 41-year-old female checked out to me by the previous physician at shift change. This lady is well-known to the ER. She has been here several hours now. She presented with self-destructive behavior, banging her head on a police cage, presumably due to chronic pain. She continues at self-destructive behavior in the ER. She had to be placed in first floor restraints, then soft wrist restraints. She has been given multiple doses of medication including Geodon, Haldol, and Versed. Finally she is resting more comfortably. She presents with tachycardia, hypertension, significantly low bicarbonate, and leukocytosis. She was significantly hyperglycemic as well, and required multiple doses of IV insulin with multiple fluid boluses to improve her glucose and bicarbonate levels. These seem to have stabilized currently. She still requiring one-on-one sitting. Spoke with psychiatry, who agrees to take the patient on the MPU, as the previous physician has placed her under 96-hour hold for suicidal ideation and self-destructive behavior. He agrees to this only with one-on-one setting for the first several hours, and hospitalist consultation for continued medical management. Hospitalist consulted from the ER, and they agree to consult. Lab Data : 10/23/21 20:19 10/23/21 20:19 Radiology Impressions Abdomen/Pelvis CT 10/21/21 14:36 IMPRESSION: No acute findings.Non acute findings as described above. COMMENTS: Consistent with the [employer]'s Incidental Findings Committee white paper (J Am Clarissa Radiol 2018): Any incidental renal lesion less than 1 cm or classified as too small to characterize, or any incidental cystic renal lesion characterized as simple-appearing, is likely benign. No follow-up imaging is recommended for these lesions per consensus recommendations based on imaging criteria. Head CT 10/21/21 14:36 IMPRESSION: 1. No acute intracranial abnormality. 2. Mild diffuse cerebral atrophy. Laboratory Results WBC 16.9 10^3/uL (4.0-10.0) H 10/21/21 15:50 Corrected WBC Cancelled 10/21/21 14:43 RBC 3.85 10^6/uL (4.1-5.3) L 10/21/21 15:50 Hgb 10.1 g/dL (11.5-15.3) L 10/21/21 15:50 Hct 31.0 % (37.0-47.0) L 10/21/21 15:50 MCV 80.5 fl (81-99) L 10/21/21 15:50 MCH 26.2 pg (28.0-34.0) L 10/21/21 15:50 MCHC 32.6 g/dL (30.0-36.0) 10/21/21 15:50 RDW 15.4 % (12.1-15.1) H 10/21/21 15:50 Plt Count 400 10^3/cmm (130-400) 10/21/21 15:50 MPV 8.9 fL (7.4-10.4) 10/21/21 15:50 Gran % Cancelled 10/21/21 14:43 Neut % (Auto) 91.7 % 10/21/21 15:50 Lymph % (Auto) 3.7 % 10/21/21 15:50 [place] % (Auto) 3.8 % 10/21/21 15:50 Eos % (Auto) 0.0 % 10/21/21 15:50 Baso % (Auto) 0.4 % 10/21/21 15:50 Neut # (Auto) 15.50 10^3/uL (1.8-7.7) H 10/21/21 15:50 Lymph # (Auto) 0.6 10^3/uL (0.8-4.8) L 10/21/21 15:50 [place] # (Auto) 0.6 10^3/uL (0.2-0.9) 10/21/21 15:50 Eos # (Auto) 0.0 10^3/uL (0.0-0.8) 10/21/21 15:50 Baso # (Auto) 0.1 10^3/uL (0.0-0.1) 10/21/21 15:50 Absolute Gran (auto) Cancelled 10/21/21 14:43 Nucleated RBC % (auto) 0 % 10/21/21 15:50 Nucleated RBCs # 0.0 /100WBC 10/21/21 15:50 Sodium 145 mmol/L (136-145) 10/22/21 01:28 Potassium 3.4 mmol/L (3.5-5.1) L 10/22/21 01:28 Chloride 109 mmol/L (98-107) H 10/22/21 01:28 Carbon Dioxide 21 mmol/L (22-29) L 10/22/21 01:28 Anion Gap 18.4 (5-19) 10/22/21 01:28 BUN 27 mg/dL (6-20) H 10/22/21 01:28 Creatinine 1.2 mg/dL (0.5-0.9) H 10/22/21 01:28 GFR Calculation 49.0 mL/min (90-130) L 10/22/21 01:28 Glucose 284 mg/dL (65-115) H 10/22/21 01:28 POC Glucose 309 mg/dL (70-110) H 10/21/21 22:23 Calculated Osmolality 315 mOsm/kg (285-295) H 10/22/21 01:28 Lactic Acid 2.6 mmol/L (0.5-2.2) H 10/21/21 22:29 Lactic Acid (Sepsis) 1.2 mmol/L (0.5-2.2) 10/22/21 01:28 Calcium 8.6 mg/dL (8.5-10.5) 10/22/21 01:28 Total Bilirubin 0.5 mg/dL (0.15-1.2) 10/21/21 15:50 AST 18 U/L (0-32) 10/21/21 15:50 ALT 23 U/L (0-33) 10/21/21 15:50 Alkaline Phosphatase 192 IU/L (35-105) H 10/21/21 15:50 Ammonia 20 umol/L (11-51) 10/22/21 01:28 Total Protein 8.1 g/dL (6.6-8.7) 10/21/21 15:50 Albumin 4.7 g/dL (3.5-5.2) 10/21/21 15:50 Globulin 3.4 g/dL (1.3-4.6) 10/21/21 15:50 Lipase 40 U/L (13-60) 10/21/21 15:50 HCG, Qual Negative (Negative) 10/21/21 17:16 Urine Color Straw (Yellow) 10/21/21 17:16 Urine Appearance Sl hazy (CLEAR) 10/21/21 17:16 Urine pH 5 (5-7) 10/21/21 17:16 Ur Specific [place] 1.005 (1.005-1.030) 10/21/21 17:16 Urine Protein 1+ (Negative) H 10/21/21 17:16 Urine Glucose (UA) 4+ (Normal) H 10/21/21 17:16 Urine Ketones Negative (Negative) 10/21/21 17:16 Urine Blood 2+ (Negative) H 10/21/21 17:16 Urine Nitrate Negative (Negative) 10/21/21 17:16 Urine Bilirubin Neg (Negative) 10/21/21 17:16 Urine Urobilinogen Norm mg/dL (Negative) 10/21/21 17:16 Ur Leukocyte Esterase Negative (Negative) 10/21/21 17:16 Urine RBC 0-4 /hpf (0-2) H 10/21/21 17:16 Urine WBC 25-40 /hpf (0-5) H 10/21/21 17:16 Ur Squamous Epith Cells 5-10 /hpf (0-5) H 10/21/21 17:16 Amorphous Sediment Not Reportable 10/21/21 17:16 Urine Bacteria 3+ /hpf (NONE) H 10/21/21 17:16 Salicylates < 0.3 mg/dL (3-10) L 10/21/21 15:50 Urine Opiates Screen Negative ng/mL (Negative) 10/21/21 17:16 Acetaminophen < 5.0 ug/mL (10-30) L 10/21/21 15:50 Ur Barbiturates Screen Negative ng/mL (Negative) 10/21/21 17:16 Ur Phencyclidine Scrn Negative ng/mL (Negative) 10/21/21 17:16 Ur Amphetamines Screen Negative ng/mL (Negative) 10/21/21 17:16 U Benzodiazepines Scrn Negative ng/mL (Negative) 10/21/21 17:16 Urine Cocaine Screen Negative ng/mL (Negative) 10/21/21 17:16 U Marijuana (THC) Screen Negative ng/mL (Negative) 10/21/21 17:16 Ethyl Alcohol < 10 mg/dL (0-10) 10/21/21 15:50 Serum Ketones Negative (Negative) 10/21/21 15:50 Discharge Plan Discharge Patient Disposition: Admitted As Inpatient Admit Provider: Sah Martinez Clinical Impression: Suicidal ideation, Intentional self-harm, Hyperglycemia, Acute dehydration Condition: Stable Discharge Diet: Regular Discharge Activity: Resume usual activity 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 Code ED Tape Edge Machine Operator for Tracig Fwd Exam Comprehensive
[2021-10-21 14:22] VITALS: BP 160/90; PULSE 120; RESP 24; O2SAT 93; BMI 26.6
--- NOTE | 2021-10-21 14:36 | CTR_ITS ---
PROCEDURE INFORMATION: Exam: CT Abdomen And Pelvis With Contrast Exam date and time: 10/21/2021 2:36 PM Age: 41 years old Clinical indication: Vomiting; Abdominal pain, TECHNIQUE: Imaging protocol: Computed tomography of the abdomen and pelvis with contrast. Radiation optimization: All CT scans at this facility use at least one of these dose optimization techniques: automated exposure control; mA and/or kV adjustment per patient size (includes targeted exams where dose is matched to clinical indication); or iterative reconstruction. Contrast material: VISI 320; Contrast volume: 90 ml; Contrast route: INTRAVENOUS (IV); COMPARISON: CT abdomen pelvis wo con [id number] 08/29/2021 12:56 PM RADIATION DOSE METRICS: Total DLP (mGy-cm): 1879.15 FINDINGS: Diaphragm: Small hiatal hernia. Liver: Normal. No mass. Gallbladder and bile ducts: The gallbladder has been removed. Pancreas: Normal. No ductal dilation. Spleen: Normal. No splenomegaly. Adrenal glands: Normal. No mass. Kidneys and ureters: There is a sub cm cyst with benign features in the left kidney. Follow-up is not necessary. Stomach and bowel: Unremarkable. No obstruction. No mucosal thickening. Appendix: No evidence of appendicitis. Intraperitoneal space: Unremarkable. No free air. No significant fluid collection. Vasculature: Unremarkable. No abdominal aortic aneurysm. Lymph nodes: Unremarkable. No enlarged lymph nodes. Urinary bladder: Unremarkable as visualized. Reproductive: Unremarkable as visualized. Bones/joints: Mild chronic appearing compression deformity of the T12 superior endplate associated with a degenerative Schmorl's nodes. There are mild degenerative changes in the visualized spine. Soft tissues: Small fat containing umbilical hernia. CT/CT abdomen pelvis w con* [id number] IMPRESSION: No acute findings.Non acute findings as described above. COMMENTS: Consistent with the [employer]'s Incidental Findings Committee white paper (J Am Clarissa Radiol 2018): Any incidental renal lesion less than 1 cm or classified as too small to characterize, or any incidental cystic renal lesion characterized as simple-appearing, is likely benign. No follow-up imaging is recommended for these lesions per consensus recommendations based on imaging criteria.
--- NOTE | 2021-10-21 14:36 | CTR_ITS ---
PROCEDURE INFORMATION: Exam: CT Head Without Contrast Exam date and time: 10/21/2021 2:36 PM Age: 41 years old Clinical indication: Altered mental status/memory loss; Additional info: Head injury, AMS TECHNIQUE: Imaging protocol: Computed tomography of the head without contrast. Radiation optimization: All CT scans at this facility use at least one of these dose optimization techniques: automated exposure control; mA and/or kV adjustment per patient size (includes targeted exams where dose is matched to clinical indication); or iterative reconstruction. COMPARISON: CT head wo con* [id number] 09/09/2021 7:26 PM RADIATION DOSE METRICS: Total DLP (mGy-cm): 914.28 FINDINGS: Brain: No hemorrhage. Mild diffuse cerebral atrophy. No significant white matter disease. No mass effect. Cerebral ventricles: No ventriculomegaly. Paranasal sinuses: Visualized sinuses are unremarkable. No fluid levels. Mastoid air cells: Visualized mastoid air cells are well aerated. Bones/joints: Unremarkable. No acute fracture. Soft tissues: Unremarkable. CT/CT head wo con* [id number] IMPRESSION: 1. No acute intracranial abnormality. 2. Mild diffuse cerebral atrophy.
--- NOTE | 2021-10-21 14:42 | PC.PHAR ---
pt states she is taking everything she is supposed to be taking. Pt has a prescription of Oxycodone 10mg q6h PRN Pain, but is out of medication (last filled on 09/08/21). Pt states she is still taking Gabapentin 600mg QID- last filled on 02/06, Atorvastatin 40mg once daily - last filled on 08/01/21 x 30 days, Amlodipine 10mg daily - last filled on 08/01/21 x 30 days, Metoprolol ER 25mg once daily - last filled on 08/01/21 x 30 days.
[2021-10-21] MEDS: lactated ringers 1,000 ML 999 ML IV ×2 (15:17→17:40)
[2021-10-21] MEDS: LORazepam 2 mg/mL INJ 1 mL IVP ×2 (15:20→23:00)
[2021-10-21] MEDS: haloperidol inj 5 mg/mL INJ 1 mL 2 MG IVP ×2 (15:48→17:36)
[2021-10-21] MEDS: fentaNYL 50 mcg/mL INJ 2mL IVP ×2 (15:51→17:36)
[2021-10-21 16:14] LABS: Basophils # 0.1 10^3/uL (0.0-0.1); Basophils % 0.4 %; Hemoglobin 10.1 g/dL (11.5-15.3); Lymphocytes # 0.6 10^3/uL (0.8-4.8); Lymphocytes % 3.7 %; Mean Corpuscular HGB Conc 32.6 g/dL (30.0-36.0); Mean Corpuscular Hemoglobin 26.2 pg (28.0-34.0); Mean Corpuscular Volume 80.5 fl (81-99); Mean Platelet Volume 8.9 fL (7.4-10.4); Monocytes # 0.6 10^3/uL (0.2-0.9); Monocytes % 3.8 %; Neutrophils % 91.7 %; Nucleated Red Blood Cells % 0 %; Platelet Count 400 10^3/cmm (130-400); Red Blood Count 3.85 10^6/uL (4.1-5.3); Red Cell Distribution Width 15.4 % (12.1-15.1); White Blood Count 16.9 10^3/uL (4.0-10.0)
[2021-10-21 16:22] LABS: Ketone (Acetest) Serum Negative (Negative)
[2021-10-21] MEDS: iodixanol 320 mg/mL 100mL Btl IV (16:30)
[2021-10-21 16:36] LABS: Alanine Aminotransferase 23 U/L (0-33); Albumin Level 4.7 g/dL (3.5-5.2); Alkaline Phosphatase 192 IU/L (35-105); Anion Gap 21.9 (5-19); Aspartate Amino Transferase 18 U/L (0-32); Blood Urea Nitrogen 33 mg/dL (6-20); Carbon Dioxide 16 mmol/L (22-29); Chloride 103 mmol/L (98-107); Globulin 3.4 g/dL (1.3-4.6); Glomerular Filtration Rate 37.9 mL/min (90-130); Glucose 474 mg/dL (65-115); Lipase 40 U/L (13-60); Osmolality Calculated 312 mOsm/kg (285-295); Potassium 3.9 mmol/L (3.5-5.1); Sodium 137 mmol/L (136-145); Total Bilirubin 0.5 mg/dL (0.15-1.2); Total Protein 8.1 g/dL (6.6-8.7)
[2021-10-21 16:39] LABS: Acetaminophen < 5.0 ug/mL (10-30); Alcohol Level < 10 mg/dL (0-10); Salicylate < 0.3 mg/dL (3-10)
--- NOTE | 2021-10-21 17:21 | PC.NURSE ---
Pt started hitting herself again. Pt placed back in restraints at 1714
[2021-10-21] MEDS: tetanus-dipt-pertussis 0.5 mL SDV IM (17:35)
[2021-10-21 17:38] LABS: HCG Qualitative Urine. Negative (Negative)
[2021-10-21] MEDS: diphenhydrAMINE 50 mg/mL SDV 1mL 25 MG IVP (17:38)
[2021-10-21] MEDS: insulin regular-human 100 units/1 mL 10 UNIT IVP ×3 (17:40→22:32)
[2021-10-21] MEDS: ziprasidone 20 mg/mL SDV IM ×2 (17:59→21:44)
[2021-10-21 18:09] LABS: Add Urine Microscopic? YES; Bilirubin Urine Neg (Negative); Blood Urine 2+ (Negative); Glucose Urine UA 4+ (Normal); Ketones Urine Negative (Negative); Leukocyte Esterase Urine Negative (Negative); Nitrate Urine Negative (Negative); Protein Urine 1+ (Negative); Specific Gravity, Urine 1.005 (1.005-1.030); Urine Appearance SL Hazy (CLEAR); Urine Color Straw (Yellow); Urobilinogen Urine Norm (Negative); pH Urine 5 (5-7)
[2021-10-21 18:16] LABS: Amphetamines Screen Urine Negative (Negative); Barbiturates Screen Urine Negative (Negative); Benzodiazepines Screen Urine Negative (Negative); Cocaine Screen Urine Negative (Negative); Opiate Screen Urine Negative (Negative); PCP Screen Urine Negative (Negative); THC Screen Urine Negative (Negative)
[2021-10-21 19:32] LABS: Glucose Point of Care 454 mg/dL (70-110)
[2021-10-21 19:32] LABS: Glucose Point of Care 375 mg/dL (70-110)
[2021-10-21 19:45] LABS: Add Urine Culture? Yes; Bacteria Urine 3+ /hpf; RBC Urine 0-4 /hpf (0-2); WBC Urine 25-40 /hpf (0-5)
[2021-10-21 19:58] VITALS: BP 160/97; PULSE 102; RESP 18; O2SAT 100
[2021-10-21 20:16] LABS: Blood Urea Nitrogen 26 mg/dL (6-20); Calcium 10.2 mg/dL (8.5-10.5); Carbon Dioxide 18 mmol/L (22-29); Chloride 105 mmol/L (98-107); Glucose 388 mg/dL (65-115); Osmolality Calculated 309 mOsm/kg (285-295); Sodium 139 mmol/L (136-145)
[2021-10-21 20:44] LABS: Glucose Point of Care 369 mg/dL (70-110)
[2021-10-21] MEDS: cefTRIAXone 1,000 MG in sodium chloride 0.9% (plus) 50 ML 100 MG IV (21:01)
[2021-10-21] MEDS: sodium chloride 0.9% 1,000 ML 999 ML IV (22:27)
[2021-10-21] MEDS: ondansetron 2 mg/ML SDV 2 mL 4 MG IVP (22:28)
[2021-10-21 22:30] VITALS: BP 165/90; PULSE 131; O2SAT 94
[2021-10-21 22:57] LABS: Lactic Sepsis W/Reflex 2.6 mmol/L (0.5-2.2)
[2021-10-21] MEDS: midazolam 1 mg/mL INJ 2 mL 5 MG IM (22:57)
[2021-10-22] VITALS (11 sets, daily range): BP systolic 120–177; BP diastolic 68–114; PULSE 83–139; RESP 16–22; TEMP 36.7–37.1; O2SAT 94–100
[2021-10-22] MEDS: midazolam 1 mg/mL INJ 2 mL 4 MG IVP (00:04)
[2021-10-22] MEDS: haloperidol inj 5 mg/mL INJ 1 mL IVP (00:07)
[2021-10-22 00:21] LABS: Reflex Lactate Order REFLEX LACTIC ORDERD
[2021-10-22] MEDS: ketorolac 30 mg/mL INJ 15 MG IVP (01:39)
[2021-10-22] MEDS: sodium chloride 0.9% 1,000 ML 999 ML IV (01:39)
[2021-10-22 01:56] LABS: Anion Gap 18.4 (5-19); Blood Urea Nitrogen 27 mg/dL (6-20); Calcium 8.6 mg/dL (8.5-10.5); Carbon Dioxide 21 mmol/L (22-29); Chloride 109 mmol/L (98-107); Glucose 284 mg/dL (65-115); Lactic Acid level (Lactate) 1.2 mmol/L (0.5-2.2); Osmolality Calculated 315 mOsm/kg (285-295); Potassium 3.4 mmol/L (3.5-5.1); Sodium 145 mmol/L (136-145)
[2021-10-22 01:57] LABS: Ammonia 20 umol/L (11-51)
[2021-10-22 02:08] LABS: Glucose Point of Care 309 mg/dL (70-110)
--- NOTE | 2021-10-22 04:33 | P.CONIM_ITS ---
Providers/Reason For Consult Consulting Physician/Specialty*: Doctor Schofield Reason for Consult*: Medical management Attending Physician: Sha Martinez MD Primary Care Provider: Angelic Martinez MD History of Present Illness History of Present Illness The patient is a 41-year-old female who presents with chief complaint of right flank pain as well as what appears to be head trauma from hitting her head against estrada. In terms for right flank pain she claims that start approximate 12 hours prior to hospitalization. She states it was gradual onset and described as sharp. She states it has been constant since the time of onset and is worse rate 10 out of 10 and rates 10 out of 10 at the time of my encounter with her although her outward appearance does not come close to matching the subjective rating of pain. She states that her last bowel movement was proximally 24 hours prior to hospitalization. She denies diarrhea, melena, hematochezia. She denies frequent NSAID use. She denies the possibility being . She denies fever, rigors, nausea, vomiting, cough, wheeze. Patient has been hospitalized on numerous occasions with similar complaints of abdominal pain with unrevealing findings. She presents for further evaluation Review of Systems General: Reports: 10 or more systems reviewed and unremarkable except in HPI and below Medications/Allergies Home Medications Medication Instructions Recorded Confirmed Last Taken Type cyclobenzaprine 10 mg tablet 10 mg PO BID PRN 30 Days #60 tab 07/03/21 10/21/21 Unknown Rx gabapentin 600 mg tablet 600 mg PO QID 30 Days #120 tab 07/03/21 10/21/21 10/20/21 Rx hydralazine 25 mg tablet 25 mg PO QID PRN 30 Days #120 tab 07/03/21 10/21/21 Unknown Rx insulin glargine 100 unit/mL (3 40 unit (0.4 mL) SUBCUT BEDTIME 30 07/03/21 10/21/21 10/20/21 Rx mL) subcutaneous pen (Lantus Days #15 ml Solostar U-100 Insulin) metoclopramide HCl 10 mg tablet 10 mg PO Q6H PRN 30 Days #120 tab 07/03/21 10/21/21 Unknown Rx pantoprazole 40 mg tablet,delayed 40 mg PO DAILY 30 Days #30 tab 07/03/21 10/21/21 10/20/21 Rx release pen needle, diabetic 33 gauge x #100 ea 07/03/21 10/21/21 Unknown Rx 1/ (Comfort EZ Pen [place]) blood sugar diagnostic (Blood #100 ea 07/12/21 10/21/21 Unknown Rx Glucose Test) amlodipine 10 mg tablet 10 mg PO DAILY 30 Days #30 tab 09/25/21 10/21/21 10/20/21 Rx atorvastatin 40 mg tablet 40 mg PO DAILY 30 Days #30 tab 09/25/21 10/21/21 10/20/21 Rx docusate sodium 100 mg capsule 100 mg PO BID 30 Days #60 cap 09/25/21 10/21/21 10/20/21 Rx (Colace) duloxetine 30 mg capsule,delayed 60 mg PO BID 30 Days #120 cap 09/25/21 10/21/21 10/20/21 Rx release lorazepam 0.5 mg tablet 0.5 mg PO BID 30 Days #60 tab 09/25/21 10/21/21 10/20/21 Rx metoprolol succinate 25 mg 50 mg PO DAILY 30 Days #60 tab 09/25/21 10/21/21 10/20/21 Rx tablet,extended release 24 hr ondansetron 8 mg disintegrating 8 mg PO Q12H PRN 30 Days #60 tab 09/25/21 10/21/21 Unknown Rx tablet quetiapine 100 mg tablet 200 mg PO BEDTIME 30 Days #90 tab 09/25/21 10/21/21 10/20/21 Rx ropinirole 1 mg tablet 1 mg PO BEDTIME 30 Days #30 tab 09/25/21 10/21/21 10/20/21 Rx sennosides 8.6 mg-docusate sodium 1 tab-cap PO DAILY PRN 30 Days #30 09/25/21 10/21/21 10/20/21 Rx 50 mg tablet (Senna-S) tab spironolactone 25 mg tablet 25 mg PO DAILY 30 Days #30 tab 09/25/21 10/21/21 10/20/21 Rx tamsulosin 0.4 mg capsule 0.4 mg PO DAILY 30 Days #30 cap 09/25/21 10/21/21 10/20/21 Rx trazodone 50 mg tablet 50 mg PO BEDTIME PRN 30 Days #30 09/25/21 10/21/21 Unknown Rx tab ferrous sulfate 325 mg (65 mg 325 mg PO DAILY 10/21/21 10/21/21 10/20/21 History iron) tablet Allergies Allergy/AdvReac Type Severity Reaction Status Date / Time morphine Allergy ALGY-Difficulty Verified 10/21/21 14:22 Breathing PFSH Acute PFSH: Medical History Acute hyponatremia Acute renal failure Back pain C. 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 Nausea & vomiting Non-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 PTSD (post-traumatic stress disorder) Self-harming behavior Self-harming behavior Suicidal ideation Suicidal ideation Toe infection UTI (urinary tract infection) Surgical History Below-knee amputation of left lower extremity H/O esophagogastroduodenoscopy (12/31/20) Bile reflux gastritis, grade B esophagitis H/O exploratory laparotomy x 3 History of amputation of right forefoot Hx of cholecystectomy Previous section x 3 S/P coronary artery stent placement x 1 S/P percutaneous endoscopic gastrostomy (PEG) tube placement Family History Unknown Diabetes extensive, type II Other CHF (congestive heart failure) Social History Smoking and tobacco status: current every day smoker Quit status (tobacco): has quit using tobacco Former quit date comment: 15 yrs ago Alcohol intake: former Former alcohol use details: 15 yrs ago Household members: spouse Marital status: Sexually active: Yes (1, ) Female Reproductive History: Spontaneous abortions: No Vitals/I&O/Wt Last Vital Signs Pulse 123 H 10/22/21 01:41 Resp 19 H 10/22/21 01:41 BP 168/99 10/22/21 01:41 Pulse Ox 98 10/22/21 01:41 10/21/21 10/21/21 10/22/21 14:59 22:59 06:59 Intake Total 50 / 50 1000 / 1050 Balance 50 / 50 1000 / 1050 Weight last 48 hrs Weight 81.647 kg Physical Exam Const: COMMON NORMALS: no acute distress, average body habitus, patient oriented x3, no limitations, healthy appearing, alert and well nourished HENMT: COMMON NORMALS: normocephalic, atraumatic, hearing grossly normal bilaterally, external ears normal, EAC's normal, TM's normal bilaterally, Normal external nose present, Normal nasal mucous membranes and turbinates present, moist oral mucous membranes, oropharynx normal, dentition normal and gingiva normal HEAD & SCALP: normocephalic and atraumatic FACE & SINUS: normal facial exam NOSE: Normal external nose present and Normal nasal mucous membranes and turbinates present EXTERNAL EAR: Yes external ears normal EXTERNAL AUDITORY CANAL: EAC's normal TYMPANIC MEMBRANE: TM's normal bilaterally Eye: COMMON NORMALS: Equal, round and reactive pupils present, EOMs intact bilaterally, conjunctivae normal, no scleral icterus, no papilledema, normal visual negro by confrontation and fundi normal bilaterally GENERAL EYE: appearance normal, both eyes and all related structures ALIGNMENT: Yes alignment normal CONJUNCTIVA: Yes conjunctivae normal PUPIL: Yes Equal, round and reactive pupils present DIRECT OPHTHALMOSCOPY: Yes no papilledema and Yes fundi normal bilaterally Neck/C-Spine: COMMON NORMALS: full ROM, no lymphadenopathy, supple, no meningeal signs, no JVD, Thyroid normal and No carotid bruits THYROID: Thyroid normal Lymph: LYMPHATIC: no lymphadenopathy noted Chest: COMMONS NORMALS: normal inspection of the chest, normal palpation of entire chest wall, normal inspection of the breasts and normal palpation of the breasts Resp: COMMON NORMALS: normal respiratory effort, No retractions, No use of accessory muscles, clear to auscultation bilaterally and percussion normal AUSCULTATION: clear to auscultation bilaterally PERCUSSION: percussion normal Cardio: COMMON NORMALS: no JVD, regular rate, regular rhythm and S1 normal heart sound present JUGULAR VENOUS DISTENTION: no JVD PALPATION: normal PMI RATE: regular rate RHYTHM: regular rhythm HEART SOUNDS: S1 normal heart sound present GI: COMMON NORMALS: Normal to inspection, nondistended, normoactive bowel sounds present, Soft to palpation, non-tender, No hepatosplenomegaly present, no masses and no bruits PALPATION: Yes Soft to palpation and Yes No hepatosplenomegaly present : COMMON NORMALS: Yes no CVA tenderness, Yes normal external appearance, Yes normal appearance of the vagina, Yes normal appearance of the cervix, Yes normal bimanual exam, Yes No adnexal tenderness and Yes no masses BLADDER/KIDNEY EXAM: Yes no CVA tenderness BIMANUAL EXAM - VAGINA & UTERUS: Yes normal bimanual exam Back/Pelvis: COMMON NORMALS: no CVA tenderness THORACIC SPINE/UPPER BACK: Yes normal to inspection LUMBAR SPINE/LOWER BACK: Yes normal to inspection Extremity: COMMON NORMALS: normal to inspection, full ROM, capillary refill normal, no joint enlargement, no clubbing, cyanosis or edema, no calf tenderness and no pedal edema Neuro: COMMON NORMALS: patient oriented x3 SENSORIUM/ORIENTATION: Yes alert MENINGEAL SIGNS: Yes no meningeal signs CRANIAL NERVES: Yes CN normal except as noted MOTOR EXAM: 5/5 motor strength present throughout DEEP TENDON REFLEXES: Right triceps reflex intensity grade: 2+, Left triceps reflex intensity grade: 2+, Rt Biceps (C5, C6): 2+, Left biceps reflex intensity grade: 2+, Right brachioradialis reflex intensity grade: 2+, Left brachioradialis reflex intensity grade: 2+, Right patellar reflex intensity grade: 2+, Left patellar reflex intensity grade: 2+, Right ankle reflex intensity grade: 2+ and Left ankle reflex intensity grade: 2+ PUPIL EXAM: Normal pupillary reactivity/response: bilateral, Dilated: bilateral, Pinpoint: bilateral, Mid position: bilateral, Sluggish: bilateral and Fixed/non-reactive: bilateral Psych: COMMON NORMALS: mental status grossly normal, Normal thought process present, cooperative, normal affect, speech normal, activity/motor behavior normal, denies hallucinations, denies homicidal ideation and denies suicidal ideation SPEECH: Yes normal speech THOUGHT PROCESS: Normal thought process present Skin: COMMON NORMALS: no rashes or lesions noted, no wounds, turgor normal, no jaundice, no petechiae and no mottling GENERAL SKIN EXAM: no rashes or lesions noted and turgor normal Data : 10/21/21 15:50 03/06/22 01:28 A&P Assessment and plan (1) Suicidal ideation: Status: Acute Plan History of suicidal ideation/suicide attempt. Evaluation by psychiatry pending Hypokalemia. Will monitor potassium levels intermittently and correct as necessary Chronic kidney disease, baseline creatinine of approximate 1.1. Will monitor creatinine intermittently Medical noncompliance. The patient becomes regarding medical compliance Insomnia Depression Anxiety Neuropathy Constipation Anemia, microcytic,, chronic. We will monitor her hemoglobin intermittently. Check serum ferritin, iron panel, fecal occult blood Coronary artery disease, status post stent. Lipitor 40 Mill grams by mouth da virgie at bedtime plus metoprolol XL 50 Mill grams daily Diabetes. Lantus 40 units subcu tensely daily at bedtime plus will check fasting glucose before meals and at bedtime and provide insulin sliding scale GERD -Hyperlipidemia. Lipitor 40 Mill grams by mouth daily at bedtime Hypertension. Norvasc 10 Mill grams by mouth daily plus metoprolol XL 50 Mill grams by mouth daily plus Aldactone 25 Mill grams by mouth daily Obesity. The patient will be counseled regarding lifestyle modification Diverticulosis Enteroparesis Chronic abdominal pain PTSD DVT prophylaxis. Right lower extremity MADELINE perkins Consult Attestations Medical Necessity Statement: This consult is medically necessary as per liborio ss by performance of this H&P. Anticipate hospitalization greater than 40 hours however the's will be at the discretion of the primary team, psychiatry 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 Code Acute Tip Inserter for Kim Mitchell Diagnoses Suicidal ideation R45.262
--- NOTE | 2021-10-22 07:35 | P.NPUHP_ITS ---
Providers/Chief Complaint Admitting Physician: Sha Martinez MD Primary Care Provider: Angelic Martinez MD Chief Complaint: SI; BACK PAIN; CUT ON FOREARM HPI NPU History of Present Illness Cherrie Solomon is a 41 year old female Chief Complaint: Psychiatric Symptoms Stated Complaint: SI; BACK PAIN; CUT ON FOREARM Time Seen by Provider: 10/21/21 14:20 History of Present Illness:?? Ms Solomon is a 41-year-old lady with complex past medical history primarily complicated by psychiatric disorder who also has hypertension, obesity, medication compliance, diabetes who presents emergency department for various concerns.? She called an ambulance for mental health evaluation which she reports is due to abdominal pain.? She has a longstanding history of gastroparesis but reports that this is worse.? She has generalized abdominal pain which she has difficulty characterizing.? It got to the point where she was banging her head against objects and has a laceration/injury associated with this.? The patient arrived in restraints by EMS.? She does not report any other significant changes in health, exacerbating, or alleviating factors.? She has had similar episodes in the past.? She reports compliance with her medications. Onset (ago): unknown Duration: constant History of same: Yes Exacerbating factors: other Treatments prior to arrival: physical restraints If self harm: has acted on plan She was admitted to the neuropsychiatric unit for definitive treatment of those issues. She presented this morning reporting that she was having significant nausea and I met her at the bedside with a full basin of brownish emesis. She started initially reporting that she had run out of some of her medication including her pain medication, once again we divided this reflected a logistical situation where she had not made the appointment. She once again is endorsing suicidal thoughts secondary to not having access to her medication and by being in that situation being in so much pain. Her blood sugars were way out of whack and took significant work by the emergency department to get her medically cleared for the unit but the challenge was her behavioral pattern once again with the police and the emergency department with head-banging, forced emesis at times with a bloody tammy on her forehead from the fresh head-banging. We discussed the critical need for us to find some kind of psychosocial setting and or safety net for her so that we were having inpatient hospitalizations that may reflect feeling suicidal and being are within but also reflect doing things the same way and getting the same result. She denies any difference in her situation from the last hospitalization, living in the same place having the same helpers etc. She can give no good reason why she had not made it to her appointment for pain management initially saying that she had to go to a walk-in but we had given her appointment prior to leaving. There have been no substantive changes since her discharge summary 09/25/2021. Meds NPU Home Medications Medication Instructions Recorded Confirmed Last Taken Type cyclobenzaprine 10 mg tablet 10 mg PO BID PRN 30 Days #60 tab 07/03/21 10/21/21 Unknown Rx gabapentin 600 mg tablet 600 mg PO QID 30 Days #120 tab 07/03/21 10/21/21 10/20/21 Rx hydralazine 25 mg tablet 25 mg PO QID PRN 30 Days #120 tab 07/03/21 10/21/21 Unknown Rx insulin glargine 100 unit/mL (3 40 unit (0.4 mL) SUBCUT BEDTIME 30 07/03/21 10/21/21 10/20/21 Rx mL) subcutaneous pen (Lantus Days #15 ml Solostar U-100 Insulin) metoclopramide HCl 10 mg tablet 10 mg PO Q6H PRN 30 Days #120 tab 07/03/21 10/21/21 Unknown Rx pantoprazole 40 mg tablet,delayed 40 mg PO DAILY 30 Days #30 tab 07/03/21 10/21/21 10/20/21 Rx release pen needle, diabetic 33 gauge x #100 ea 07/03/21 10/21/21 Unknown Rx 1/4 (Comfort EZ Pen Thor) blood sugar diagnostic (Blood #100 ea 07/12/21 10/21/21 Unknown Rx Glucose Test) amlodipine 10 mg tablet 10 mg PO DAILY 30 Days #30 tab 09/25/21 10/21/21 10/20/21 Rx atorvastatin 40 mg tablet 40 mg PO DAILY 30 Days #30 tab 09/25/21 10/21/2112/08 Rx docusate sodium 100 mg capsule 100 mg PO BID 30 Days #60 cap 09/25/21 10/21/21 10/20/21 Rx (Colace) duloxetine 30 mg capsule,delayed 60 mg PO BID 30 Days #120 cap 09/25/21 10/21/21 10/20/21 Rx release lorazepam 0.5 mg tablet 0.5 mg PO BID 30 Days #60 tab 09/25/21 10/21/21 10/20/21 Rx metoprolol succinate 25 mg 50 mg PO DAILY 30 Days #60 tab 09/25/21 10/21/21 10/20/21 Rx tablet,extended release 24 hr ondansetron 8 mg disintegrating 8 mg PO Q12H PRN 30 Days #60 tab 09/25/21 10/21/21 Unknown Rx tablet quetiapine 100 mg tablet 200 mg PO BEDTIME 30 Days #90 tab 09/25/21 10/21/21 10/20/21 Rx ropinirole 1 mg tablet 1 mg PO BEDTIME 30 Days #30 tab 09/25/21 10/21/21 10/20/21 Rx sennosides 8.6 mg-docusate sodium 1 tab-cap PO DAILY PRN 30 Days #30 09/25/21 10/21/21 10/20/21 Rx 50 mg tablet (Senna-S) tab spironolactone 25 mg tablet 25 mg PO DAILY 30 Days #30 tab 09/25/21 10/21/21 10/20/21 Rx tamsulosin 0.4 mg capsule 0.4 mg PO DAILY 30 Days #30 cap 09/25/21 10/21/21 10/20/21 Rx trazodone 50 mg tablet 50 mg PO BEDTIME PRN 30 Days #30 09/25/21 10/21/21 Unknown Rx tab ferrous sulfate 325 mg (65 mg 325 mg PO DAILY 10/21/21 10/21/21 10/20/21 History iron) tablet Allergies Allergy/AdvReac Type Severity Reaction Status Date / Time morphine Allergy ALGY-Difficulty Verified 10/21/21 14:22 Breathing PFSH NPU PFSH: Medical History Acute hyponatremia Acute renal failure Back pain C. 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 Nausea & vomiting Non-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 PTSD (post-traumatic stress disorder) Self-harming behavior Self-harming behavior Suicidal ideation Suicidal ideation Toe infection UTI (urinary tract infection) Surgical History Below-knee amputation of left lower extremity H/O esophagogastroduodenoscopy (12/31/20) Bile reflux gastritis, grade B esophagitis H/O exploratory laparotomy x 3 History of amputation of right forefoot Hx of cholecystectomy Previous section x 3 S/P coronary artery stent placement x 1 S/P percutaneous endoscopic gastrostomy (PEG) tube placement Family History Unknown Diabetes extensive, type II Other CHF (congestive heart failure) Social History Smoking and tobacco status: current every day smoker Quit status (tobacco): has quit using tobacco Former quit date comment: 15 yrs ago Alcohol intake: former Former alcohol use details: 15 yrs ago Household members: spouse Marital status: Sexually active: Yes (1, ) Female Reproductive History: Spontaneous abortions: No Mental Status Exam MSE Comments: This is an overweight white female in hospital scrubs with limited grooming and eye contact.? With notable below-knee amputation on her left leg and a significant freshly bloody area in the middle top of her forehead that is key account representative of recent head-banging.? No abnormal movements except for psychomotor retardation.? More cooperative with exam in no mild distress.? Speech was decreased rate and volume.? Mood described as depressed, affect congruent.? Thought process organized.? Thought content: Patient endorsed suicidal but denied homicidal ideation, there were no delusions reported or noted, she denied auditory or visual hallucinations.? Attention and francisco ntration were limited and memory appeared limited but none were formally tested.? She is alert and oriented x3.? Insight and judgment are limited, and impulse control is impaired. Vitals/I&O/Wt Last Vital Signs Temp 98.6 F 10/22/21 06:43 Pulse 139 H 10/22/21 06:43 Resp 22 H 10/22/21 06:43 BP 169/104 10/22/21 06:43 Pulse Ox 96 10/22/21 06:43 10/21/21 10/22/21 10/22/21 22:59 06:59 14:59 Intake Total 50 / 50 3000 / 3050 Balance 50 / 50 3000 / 3050 Weight last 48 hrs Weight 81.647 kg Data NPU : 10/21/21 15:50 10/22/21 01:28 A&P Assessment and plan (1) Suicidal ideation: Status: Acute (2) Intentional self-harm: Status: Acute (3) Hyperglycemia: Status: Acute (4) Acute dehydration: Status: Acute (5) Depression: Status: Acute Qualifiers: Depression Type: unspecified Qualified Code(s): F32.9 - Major depressive disorder, single episode, unspecified (6) Diabetes mellitus type 1: Status: Chronic Qualifiers: Diabetes mellitus complication status: with hyperglycemia Qualified Code(s): E10.65 - Type 1 diabetes mellitus with hyperglycemia (7) Diabetic gastroparesis: Status: Chronic (8) Anemia of chronic disease: Status: Acute (9) Below-knee amputation of left lower extremity: Status: Acute (10) Insomnia: Status: Acute Qualifiers: Insomnia type: due to medical condition Qualified Code(s): G47.01 - Insomnia due to medical condition (11) GERD (gastroesophageal reflux disease): Status: Acute Qualifiers: Esophagitis presence: without esophagitis Qualified Code(s): K21.9 - Gastro-esophageal reflux disease without esophagitis (12) ALEJANDRO (generalized anxiety disorder): Status: Acute (13) Noncompliance: Status: Acute (14) Diabetic ophthalmopathy: Status: Acute (15) Coronary artery disease: Status: Acute Qualifiers: Coronary Disease-Associated Artery/Lesion type: [place] artery [place] vs. transplanted heart: [place] heart Associated angina: without angina Qualified Code(s): I25.10 - Atherosclerotic heart disease of [place] coronary artery without angina pectoris (16) Diabetic neuropathy: Status: Acute Qualifiers: Diabetes mellitus type: type 1 Diabetes mellitus complication detail: diabetic polyneuropathy Qualified Code(s): E10.42 - Type 1 diabetes mellitus with diabetic polyneuropathy (17) Low back pain: Status: Acute (18) Pain of amputation stump of left lower extremity: Status: Acute (19) History of financial difficulties: Status: Acute (20) Hypertension: Status: Chronic Qualifiers: Hypertension type: unspecified Qualified Code(s): I10 - Essential (primary) hypertension Plan This is a 41-year-old female with multiple admissions wanted to because of the pain Plan: 1.? Continue current medication.? 2.? Continue every 15 minute checks for safety. 3.? Encourage individual, group and milieu therapies. 4.? Encourage sober living treatment after discharge at the highest level of care to which she is willing to commit. 5.? Plan for discharge as soon as we can identify some resources to assist with her outpatient functioning pillowcase folder etc. Otherwise she could possibly be a candidate for some kind of assisted living/nursing services. Involuntary Hold Information 96 Hour Hold: 96 Hour Involuntary Admission: Yes 96 Hour Hold Ending Date: 09/15/21 96 Hour Hold Ending Time: 00:01 Attestations NPU Medical Necessity Statement*: Inpatient hospitalization is medically necessary and the clinically appropriate intervention at this time.? We will initiate medications and make changes as indicated.? She will be in the hospital for over 2 midnights.? Likely length of stay 4-6 days 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 Code Acute Supervisor Sanding for Chg Fwd Diagnoses Suicidal ideation R45.851 Intentional self-harm Hyperglycemia R73.9 Acute dehydration E86.0 Depression F32.9 Depression Type: unspecified Diabetes mellitus type 1 E10.65 Diabetes mellitus complication status: with hyperglycemia Diabetic gastroparesis E11.43; K31.84 Anemia of chronic disease D63.8 Below-knee amputation of left lower extremity S88.112A Insomnia G47.01 Insomnia type: due to medical condition GERD (gastroesophageal reflux disease) K21.9 Esophagitis presence: without esophagitis ALEJANDRO (generalized anxiety disorder) F41.1 Noncompliance Z91.19 Diabetic ophthalmopathy E11.39 Coronary artery disease I25.10 Coronary Disease-Associated Artery/Lesion type: [place] artery [place] vs. transplanted heart: [place] heart Associated angina: without angina Diabetic neuropathy E10.42 Diabetes mellitus type: type 1 Diabetes mellitus complication detail: diabetic polyneuropathy Low back pain M54.5 Pain of amputation stump of left lower extremity T87.89; M79.605 History of financial difficulties Z87.898 Hypertension I10 Hypertension type: unspecified
[2021-10-22] MEDS: spironolactone 25 mg Tablet PO (08:16)
[2021-10-22] MEDS: amlodipine 10 mg Tablet PO (08:16)
[2021-10-22] MEDS: potassium chloride ER 20 mEq Tablet 40 MEQ PO (08:17)
[2021-10-22] MEDS: metoprolol succinate ER (24 HR) 25 mg Tablet 50 MG PO (08:17)
[2021-10-22] MEDS: atorvastatin 40 mg Tablet PO (08:17)
[2021-10-22 08:18] LABS: Glucose Point of Care 225 mg/dL (70-110)
[2021-10-22] MEDS: insulin lispro 100 unit/1 mL SUBCUT ×2 (08:23→16:16)
[2021-10-22] MEDS: oxyCODONE 5 mg IR Tab/Cap 10 MG PO ×2 (08:57→20:59)
[2021-10-22] MEDS: cyclobenzaprine 10 mg Tablet PO (08:57)
[2021-10-22 11:26] LABS: Glucose Point of Care 120 mg/dL (70-110)
[2021-10-22 11:27] LABS: Ferritin 209 ng/mL (15-150); Iron 56 ug/dL (37-145)
[2021-10-22 12:09] LABS: Percent Saturation 16.1 % (20-50); Total Iron Binding Capacity 346 mcg/dl; Unsaturated Iron Binding 290 ug/dL (112-347)
[2021-10-22] MEDS: hyDROXYzine 25 mg Capsule 50 MG PO ×2 (12:25→19:22)
--- NOTE | 2021-10-22 12:25 | PC.NURSE ---
prn Vistaril 50 mg given po per pt c/o stated anxiety. will cont to monitor
[2021-10-22 16:09] LABS: Glucose Point of Care 151 mg/dL (70-110)
[2021-10-22] MEDS: OLANZapine 5 mg ODT PO (16:16)
--- NOTE | 2021-10-22 16:18 | PC.NURSE ---
PRN ZYPREXA ZYDIS 5 MG GIVEN PO PER PT C/O STATED ANXIETY/AGITATION. PT HAS BEEN ISOLATING TO ROOM, BUT PLEASANT WITH STAFF INTERACTION.
--- NOTE | 2021-10-22 19:22 | PC.NURSE ---
prn Vistaril 50 mg given po per pt c/o anxiety. will cont to monitor.
[2021-10-22 20:37] LABS: Glucose Point of Care 138 mg/dL (70-110)
[2021-10-22] MEDS: trazodone 50 mg Tablet PO (20:58)
[2021-10-22] MEDS: duloxetine 30 mg Capsule 60 MG PO (20:58)
[2021-10-22] MEDS: quetiapine 100 mg Tablet 200 MG PO (20:59)
[2021-10-22] MEDS: insulin glargine 100 units/1 mL 20 UNIT SUBCUT (21:08)
[2021-10-23] VITALS (7 sets, daily range): BP systolic 116–166; BP diastolic 74–93; PULSE 80–97; RESP 16–20; TEMP 36.5–36.7; O2SAT 96–100
[2021-10-23 06:41] LABS: Glucose Point of Care 108 mg/dL (70-110)
[2021-10-23] MEDS: oxyCODONE 5 mg IR Tab/Cap 10 MG PO (07:35)
[2021-10-23] MEDS: atorvastatin 40 mg Tablet PO (09:02)
[2021-10-23] MEDS: spironolactone 25 mg Tablet PO (09:02)
[2021-10-23] MEDS: metoprolol succinate ER (24 HR) 25 mg Tablet 50 MG PO (09:02)
[2021-10-23] MEDS: amlodipine 10 mg Tablet PO (09:02)
[2021-10-23] MEDS: cyclobenzaprine 10 mg Tablet PO ×2 (09:02→17:08)
[2021-10-23] MEDS: duloxetine 30 mg Capsule 60 MG PO ×2 (09:03→21:12)
--- NOTE | 2021-10-23 09:04 | PC.NURSE ---
prn Flexeril 10 mg given po per pt c/o muscle spasms
--- NOTE | 2021-10-23 09:35 | PC.NURSE ---
PRN ATIVAN/HALDOL/BENADRYL
--- NOTE | 2021-10-23 09:35 | PC.NURSE ---
PRN ATIVAN/HALDOL/BENADRYL ATIVAN 2 MG GIVEN IM WITH HALDOL 5 MG IM IN RIGHT DELTOID. BENADRYL 50 MG GIVEN IM LEFT DELTOID. INJECTIONS GIVEN PER DR. WALL TELEPHONE ORDER. PRIOR TO INJECTIONS, PT WAS TAKING SHOWER ON [facility] [address]. STAFF OVERHEARD LOUD BANGING COMING FROM BATHROOM. UPON ENTERING BATHROOM PT WAS HITTING HER HEAD WITH A CLOSED FIST. STAFF ASKED PT TO CEASE BEHAVIOR SEVERAL TIMES, PT CONT TO DO SO. PT WAS DRESSED IN CLEAN CLOTHES & ASSISTED BACK TO HER ROOM WITH STAFF ASSISTANCE. ONCE IN ROOM PT SAT DOWN ON HER BED, BENT OVER AND WAS ATTEMPTING TO BANG HER HEAD AGAINST THE LOWERED BED RAIL SEVERAL TIMES. STAFF INTERVENED QUICKLY, PLACED A SOFT TOWEL BETWEEN PT HEAD AND BED RAIL. STAFF ASKED PT TO CEASE BEHAVIOR, PT WOULD NOT TAKE ANY DIRECTION FROM STAFF & CONT TO BANG HER HEAD AGAINST THE BED RAIL, ALSO TRIED TO HIT HER HEAD WITH HER CLOSED FIST. AGENCY LEGAL COUNSEL NOTIFIED & NPU DIRECTOR ALSO NOTIFIED. DR. WALL NOTIFIED VIA PHONE ABOUT PATIENT BEHAVIOR, TELEPHONE ORDER GIVEN TO Kunal RUSS RN TO GIVE ATIVAN 2MG/HALDOL 5MG/BENADRYL 50MG GIVE IM NOW.
[2021-10-23] MEDS: haloperidol inj 5 mg/mL INJ 1 mL IM (09:41)
[2021-10-23] MEDS: diphenhydrAMINE 50 mg/mL SDV 1mL IM (09:41)
[2021-10-23] MEDS: LORazepam 2 mg/mL INJ 1 mL IM ×2 (09:41→17:36)
--- NOTE | 2021-10-23 09:56 | W.PM.BREST ---
Face to Face: Restrn/Seclusion Events leading up to initiation: Verbalizing threat to self or others and Demonstrating self-destructive behavior (cutting, hitting estrada etc.) Evaluation of patient's immediate situation: Alert and oriented, Signs of physical distress and Signs of psychological distress Patient reaction since intervention applied: Continued attempts/displays harmful behavior Recent labs reviewed: Yes Review of medications: Yes Patient's current medical/behavioral condition: No new concerns since last ROS Need for restraint or seclusion is: Continued (Attempted to take 1 hand out and she continue to hit herself.) Attending notified: Attending completed assessment
--- NOTE | 2021-10-23 10:18 | PC.OT ---
HOLD OT EVALUATION PER NURSING; PATIENT CURRENTLY IN RESTRAINTS
[2021-10-23 12:58] LABS: Glucose Point of Care 220 mg/dL (70-110)
[2021-10-23] MEDS: insulin lispro 100 unit/1 mL SUBCUT ×3 (13:34→21:11)
[2021-10-23] MEDS: oxyCODONE-APAP 10-325 mg Tablet 1 TAB PO ×2 (15:39→21:22)
--- NOTE | 2021-10-23 17:16 | P.NPUPN_ITS ---
Subjective NPU Subjective: Interval history: Patient presented today mostly in and out of possible restraint situations as she had constant somatic complaints of pain numbness and other physical c hallenges which she reports would get so extreme that the only answer to not experiencing the discomfort was the cause her self pain somewhere else which led to punching her self attempting to bang her head which led to 2 restraint situations. We continued our conversation about the fact that she has to get to the treatment modalities that will assist her for this to change but instead we are on the third hospitalization this year with the same modus operandi but no changes in her approach is leading to the same cycle. Mental Status Exam MSE Comments: This is an overweight white female in hospital scrubs with limited grooming and eye contact.? With notable below-knee amputation on her left leg and a significant freshly bloody area in the middle top of her forehead that is parts representative of recent head-banging.? No abnormal movements except for psychomotor agitation.? Not very cooperative with exam in extreme distress.? Speech was decreased rate and volume.? Mood described as in pain, affect congruent.? Thought process organized.? Thought content: Patient endorsed suicidal but denied homicidal ideation, there were no delusions reported or noted, she denied auditory or visual hallucinations.? Attention and concentration were limited and memory appeared limited but none were formally te sted.? She is alert and oriented x3.? Insight and judgment are limited,? and impulse control is impaired. Vitals/I&O/Wt Last Vital Signs Temp 98.0 F 10/23/21 22:00 Pulse 97 10/23/21 22:00 Resp 16 10/23/21 22:00 BP 166/93 10/23/21 22:00 Pulse Ox 100 10/23/21 22:00 Data NPU : 10/23/21 20:19 10/23/21 20:19 Micro: Microbiology 10/21/21 17:16 Urine Culture - Preliminary Urine,Voided Gram Negative Rods Microbiology 10/21/21 17:16 Urine,Voided Urine Culture - Preliminary Gram Negative Rods A&P Assessment and plan (1) Suicidal ideation: Status: Acute (2) Intentional self-harm: Status: Acute (3) Hyperglycemia: Status: Acute (4) Acute dehydration: Status: Acute (5) Depression: Status: Acute Qualifiers: Depression Type: unspecified Qualified Code(s): F32.9 - Major depressive disorder, single episode, unspecified (6) Diabetes mellitus type 1: Status: Chronic Qualifiers: Diabetes mellitus complication status: with hyperglycemia Qualified Code(s): E10.65 - Type 1 diabetes mellitus with hyperglycemia (7) Diabetic gastroparesis: Status: Chronic (8) Anemia of chronic disease: Status: Acute (9) Below-knee amputation of left lower extremity: Status: Acute (10) Insomnia: Status: Acute Qualifiers: Insomnia type: due to medical condition Qualified Code(s): G47.01 - Insomnia due to medical condition (11) GERD (gastroesophageal reflux disease): Status: Acute Qualifiers: Esophagitis presence: without esophagitis Qualified Code(s): K21.9 - Gastro-esophageal reflux disease without esophagitis (12) ALEJANDRO (generalized anxiety disorder): Status: Acute (13) Noncompliance: Status: Acute (14) Diabetic ophthalmopathy: Status: Acute (15) Coronary artery disease: Status: Acute Qualifiers: Coronary Disease-Associated Artery/Lesion type: [place] artery [place] vs. transplanted heart: [place] heart Associated angina: without angina Qualified Code(s): I25.10 - Atherosclerotic heart disease of [place] coronary artery without angina pectoris (16) Diabetic neuropathy: Status: Acute Qualifiers: Diabetes mellitus type: type 1 Diabetes mellitus complication detail: diabetic polyneuropathy Qualified Code(s): E10.42 - Type 1 diabetes mellitus with diabetic polyneuropathy (17) Amputation of toe of right foot: Status: Acute (18) Low back pain: Status: Acute (19) Pain of amputation stump of left lower extremity: Status: Acute (20) History of financial difficulties: Status: Acute (21) Hypertension: Status: Chronic Qualifiers: Hypertension type: unspecified Qualified Code(s): I10 - Essential (primary) hypertension Plan This is a 41-year-old female with multiple admissions wanted to because of the pain Plan: 1.? Continue current medication.? 2.? Continue every 15 minute checks for safety. 3.? Encourage individual, group and milieu therapies. 4.? Encourage sober living treatment after discharge at the highest level of care to which she is willing to commit. 5.? Plan for discharge as soon as we can identify some resources to assist with her outpatient functioning returned case inspector etc.? Otherwise she could possibly be a candidate for some kind of assisted living/nursing services. 6. We need to get medicine involved to identify that there are some ways they can create a reasonable process for the cycle not to continue. Involuntary Hold Information 96 Hour Hold: 96 Hour Involuntary Admission: Yes 96 Hour Hold Ending Date: 09/15/21 96 Hour Hold Ending Time: 00:01 Attestations NPU Medical Necessity Statement*: Inpatient hospitalization is medically necessary and the clinically appropriate intervention at this time.? We will initiate medications and make changes as indicated.? Likely length of stay 3-5 days 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 Code Acute Lining Stamper for Chg Fwd Diagnoses Suicidal ideation R45.851 Intentional self-harm Hyperglycemia R73.9 Acute dehydration E86.0 Depression F32.9 Depression Type: unspecified Diabetes mellitus type 1 E10.65 Diabetes mellitus complication status: with hyperglycemia Diabetic gastroparesis E11.43; K31.84 Anemia of chronic disease D63.8 Below-knee amputation of left lower extremity S88.112A Insomnia G47.01 Insomnia type: due to medical condition GERD (gastroesophageal reflux disease) K21.9 Esophagitis presence: without esophagitis ALEJANDRO (generalized anxiety disorder) F41.1 Noncompliance Z91.19 Diabetic ophthalmopathy E11.39 Coronary artery disease I25.10 Coronary Disease-Associated Artery/Lesion type: [place] artery [place] vs. transplanted heart: [place] heart Associated angina: without angina Diabetic neuropathy E10.42 Diabetes mellitus type: type 1 Diabetes mellitus complication detail: diabetic polyneuropathy Amputation of toe of right foot S98.131A Low back pain M54.5 Pain of amputation stump of left lower extremity T87.89; M79.605 History of financial difficulties Z87.898 Hypertension I10 Hypertension type: unspecified
[2021-10-23 17:44] LABS: Glucose Point of Care 212 mg/dL (70-110)
[2021-10-23] MEDS: lidocaine 5% Patch 1 PATCH TOPICAL (17:52)
--- NOTE | 2021-10-23 18:29 | W.PM.BREST ---
Face to Face: Restrn/Seclusion Events leading up to initiation: Verbalizing threat to self or others and Demonstrating self-destructive behavior (cutting, hitting estrada etc.) Evaluation of patient's immediate situation: Alert and oriented, Signs of physical distress and Signs of psychological distress Patient reaction since intervention applied: Continued attempts/displays harmful behavior Recent labs reviewed: Yes Review of medications: Yes Patient's current medical/behavioral condition: No new concerns since last ROS Need for restraint or seclusion is: Continued Attending notified: Attending completed assessment
[2021-10-23 20:29] LABS: Basophils % 0.2 %; Eosinophils # 1.7 10^3/uL (0.0-0.8); Eosinophils % 11.8 %; Hematocrit 39.3 % (37.0-47.0); Hemoglobin 12.4 g/dL (11.5-15.3); Lymphocytes % 6.8 %; Mean Corpuscular HGB Conc 31.6 g/dL (30.0-36.0); Mean Corpuscular Volume 82.4 fl (81-99); Mean Platelet Volume 8.9 fL (7.4-10.4); Monocytes # 0.4 10^3/uL (0.2-0.9); Monocytes % 2.9 %; Neutrophils # 10.95 10^3/uL (1.8-7.7); Neutrophils % 77.9 %; Nucleated Red Blood Cells % 0 %; Platelet Count 379 10^3/cmm (130-400); Red Blood Count 4.77 10^6/uL (4.1-5.3); White Blood Count 14.1 10^3/uL (4.0-10.0)
[2021-10-23 20:59] LABS: Alanine Aminotransferase 26 U/L (0-33); Albumin Level 4.8 g/dL (3.5-5.2); Alkaline Phosphatase 205 IU/L (35-105); Anion Gap 21.2 (5-19); Aspartate Amino Transferase 26 U/L (0-32); Blood Urea Nitrogen 20 mg/dL (6-20); Calcium 10.4 mg/dL (8.5-10.5); Carbon Dioxide 20 mmol/L (22-29); Chloride 99 mmol/L (98-107); Globulin 4.4 g/dL (1.3-4.6); Glomerular Filtration Rate 54.2 mL/min (90-130); Glucose 205 mg/dL (65-115); Osmolality Calculated 291 mOsm/kg (285-295); Potassium 4.2 mmol/L (3.5-5.1); Sodium 136 mmol/L (136-145); Total Bilirubin 0.3 mg/dL (0.15-1.2); Total Protein 9.2 g/dL (6.6-8.7)
[2021-10-23 21:05] LABS: Glucose Point of Care 187 mg/dL (70-110)
[2021-10-23 21:12] LABS: Slide Review Slide Review Perform
[2021-10-23] MEDS: trazodone 50 mg Tablet PO (21:12)
[2021-10-23] MEDS: insulin glargine 100 units/1 mL 20 UNIT SUBCUT (21:12)
[2021-10-23] MEDS: quetiapine 100 mg Tablet 200 MG PO (21:12)
[2021-10-24 06:00] VITALS: BP 96/63; PULSE 84; RESP 17; TEMP 36.5; O2SAT 100
[2021-10-24 06:35] VITALS: RESP 18
[2021-10-24] MEDS: oxyCODONE-APAP 10-325 mg Tablet 1 TAB PO ×3 (06:35→20:25)
[2021-10-24] MEDS: hyDROXYzine 25 mg Capsule 50 MG PO (06:46)
--- NOTE | 2021-10-24 06:50 | PC.NURSE ---
pt requesting medication for anxiety, Vistaril 50mg po given.
--- NOTE | 2021-10-24 07:24 | PC.NURSE ---
pt resting quietly with both eyes closed.
[2021-10-24 08:20] LABS: Glucose Point of Care 88 mg/dL (70-110)
[2021-10-24] MEDS: metoprolol succinate ER (24 HR) 25 mg Tablet 50 MG PO (09:24)
[2021-10-24] MEDS: spironolactone 25 mg Tablet PO (09:24)
[2021-10-24] MEDS: duloxetine 30 mg Capsule 60 MG PO ×2 (09:24→20:24)
[2021-10-24] MEDS: atorvastatin 40 mg Tablet PO (09:24)
[2021-10-24] MEDS: cyclobenzaprine 10 mg Tablet PO (09:24)
[2021-10-24] MEDS: LORazepam 0.5 mg Tablet PO (09:24)
[2021-10-24] MEDS: amlodipine 10 mg Tablet PO (09:24)
[2021-10-24] MEDS: lidocaine 5% Patch 1 PATCH TOPICAL (09:25)
--- NOTE | 2021-10-24 10:44 | NPU.GN ---
[facility] Group Topic:Susanna Justice General Mood of Group: Cherrie did not attend group today.
[2021-10-24 11:20] LABS: Glucose Point of Care 159 mg/dL (70-110)
[2021-10-24] MEDS: insulin lispro 100 unit/1 mL SUBCUT ×2 (12:26→20:26)
[2021-10-24 12:27] VITALS: RESP 14; O2SAT 98
[2021-10-24 14:00] VITALS: BP 94/63; PULSE 75; RESP 17; TEMP 36.3; O2SAT 99
[2021-10-24] MEDS: OLANZapine 5 mg ODT PO (15:50)
--- NOTE | 2021-10-24 19:52 | P.NPUPN_ITS ---
Subjective NPU Subjective: Interval history: Patient presents today doing much better than yesterday actually coming to the window and interacting with staff without head-banging or any other issues. We discussed the treatment team's plan to get home health involved. We tried previously without success but we will need to redouble our efforts to make sure that that occurs. Likely the regular pain medication is being given now is responsible for us having less challenges today. We discussed the need to get stability with her medication and medical treatment at home to divert from these psychiatric inpatient stays. Mental Status Exam MSE Comments: This is an overweight white female in hospital scrubs with limited grooming and eye contact.? With notable below-knee amputation on her left leg and a significant freshly bloody area in the middle top of her forehead that is patient relations representative of recent head-banging.? No abnormal movements except for psychomotor retardation.? More cooperative with exam in mild distress.? Speech was decreased rate and volume.? Mood described as better than yesterday, affect congruent.? Thought process organized.? Thought content: Patient endorsed suicidal but denied homicidal ideation, there were no delusions reported or noted, she denied auditory or visual hallucinations.? Attention and concentration were limited and memory appeared more reliable but none were formally tested.? She is alert and oriented x3.? Insight and judgment are limited,?and impulse control is limited. Vitals/I&O/Wt Last Vital Signs Temp 97.4 F L 10/24/21 14:00 Pulse 75 10/24/21 14:00 Resp 17 10/24/21 14:00 BP 94/63 10/24/21 14:00 Pulse Ox 99 10/24/21 14:00 Data NPU : 10/23/21 20:19 10/23/21 20:19 Micro: Microbiology 10/21/21 17:16 Urine Culture - Final Urine,Voided Escherichia coli Microbiology 10/21/21 17:16 Urine,Voided Urine Culture - Final Escherichia coli A&P Assessment and plan (1) Suicidal ideation: Status: Acute (2) Intentional self-harm: Status: Acute (3) Hyperglycemia: Status: Acute (4) Acute dehydration: Status: Acute (5) Depression: Status: Acute Qualifiers: Depression Type: unspecified Qualified Code(s): F32.9 - Major depressive disorder, single episode, unspecified (6) Diabetes mellitus type 1: Status: Chronic Qualifiers: Diabetes mellitus complication status: with hyperglycemia Qualified Code(s): E10.65 - Type 1 diabetes mellitus with hyperglycemia (7) Diabetic gastroparesis: Status: Chronic (8) Anemia of chronic disease: Status: Acute (9) Below-knee amputation of left lower extremity: Status: Acute (10) Insomnia: Status: Acute Qualifiers: Insomnia type: due to medical condition Qualified Code(s): G47.01 - Insomnia due to medical condition (11) GERD (gastroesophageal reflux disease): Status: Acute Qualifiers: Esophagitis presence: without esophagitis Qualified Code(s): K21.9 - Gastro-esophageal reflux disease without esophagitis (12) ALEJANDRO (generalized anxiety disorder): Status: Acute (13) Noncompliance: Status: Acute (14) Diabetic ophthalmopathy: Status: Acute (15) Coronary artery disease: Status: Acute Qualifiers: Coronary Disease-Associated Artery/Lesion type: [place] artery [place] vs. transplanted heart: [place] heart Associated angina: without angina Qualified Code(s): I25.10 - Atherosclerotic heart disease of [place] coronary artery without angina pectoris (16) Diabetic neuropathy: Status: Acute Qualifiers: Diabetes mellitus type: type 1 Diabetes mellitus complication detail: diabetic polyneuropathy Qualified Code(s): E10.42 - Type 1 diabetes mellitus with diabetic polyneuropathy (17) Amputation of toe of right foot: Status: Acute (18) Suicide attempt: Status: Acute (19) Low back pain: Status: Acute (20) Pain of amputation stump of left lower extremity: Status: Acute (21) History of financial difficulties: Status: Acute (22) Hypertension: Status: Chronic Qualifiers: Hypertension type: unspecified Qualified Code(s): I10 - Essential (primary) hypertension Plan This is a 41-year-old female with multiple admissions wanted to because of the pain Plan: 1.? Continue current medication.? Currently getting her faqkfh-ljf-fgien oxycodone but need to ensure an appointment for pain management occurs possibly at discharge. 2.? Continue every 15 minute checks for safety. 3.? Encourage individual, group and milieu therapies. 4.? Encourage sober living treatment after discharge at the highest level of care to which she is willing to commit. 5.? 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 Otherwise she could possibly be a candidate for some kind of assisted living/nursing services. 6.? We need to get medicine involved to identify that there are some ways they can create a reasonable process for the cycle not to continue. 7. Referral to home health and exploration of greater investment in her outcomes from the medical side. Involuntary Hold Information 96 Hour Hold: 96 Hour Involuntary Admission: Yes 96 Hour Hold Ending Date: 09/15/21 96 Hour Hold Ending Time: 00:01 Attestations NPU Medical Necessity Statement*: Inpatient hospitalization is medically necessary and the clinically appropriate intervention at this time.? We will initiate medications and make changes as indicated.? Likely length of stay 2-4 days 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 Code Acute [employer] Contractor for Chg Fwd Diagnoses Suicidal ideation R45.851 Intentional self-harm Hyperglycemia R73.9 Acute dehydration E86.0 Depression F32.9 Depression Type: unspecified Diabetes mellitus type 1 E10.65 Diabetes mellitus complication status: with hyperglycemia Diabetic gastroparesis E11.43; K31.84 Anemia of chronic disease D63.8 Below-knee amputation of left lower extremity S88.112A Insomnia G47.01 Insomnia type: due to medical condition GERD (gastroesophageal reflux disease) K21.9 Esophagitis presence: without esophagitis ALEJANDRO (generalized anxiety disorder) F41.1 Noncompliance Z91.19 Diabetic ophthalmopathy E11.39 Coronary artery disease I25.10 Coronary Disease-Associated Artery/Lesion type: [place] artery [place] vs. transplanted heart: [place] heart Associated angina: without angina Diabetic neuropathy E10.42 Diabetes mellitus type: type 1 Diabetes mellitus complication detail: diabetic polyneuropathy Amputation of toe of right foot S98.131A Suicide attempt T14.91XA Low back pain M54.5 Pain of amputation stump of left lower extremity T87.89; M79.605 History of financial difficulties Z87.898 Hypertension I10 Hypertension type: unspecified
[2021-10-24 20:13] LABS: Glucose Point of Care 97 mg/dL (70-110)
[2021-10-24 20:13] LABS: Glucose Point of Care 220 mg/dL (70-110)
[2021-10-24] MEDS: trazodone 50 mg Tablet PO (20:24)
[2021-10-24 20:25] VITALS: RESP 16; O2SAT 96
[2021-10-24] MEDS: quetiapine 100 mg Tablet 200 MG PO (20:26)
[2021-10-24] MEDS: insulin glargine 100 units/1 mL 20 UNIT SUBCUT (20:26)
[2021-10-24 20:34] VITALS: BP 90/59; PULSE 71; RESP 17; TEMP 36.8; O2SAT 100
--- NOTE | 2021-10-24 21:02 | PC.NURSE ---
Patient requested pain medication for right sided pain. She rated the pain as a 7 on the intensity scale. Oxycodone Apap was given. She also requested something to help her sleep and Trazadone was given.
[2021-10-25] MEDS: levoFLOXacin 500 mg Tablet PO (05:41)
[2021-10-25 06:00] VITALS: BP 100/55; PULSE 69; RESP 18; TEMP 36.5; O2SAT 99
[2021-10-25] MEDS: hyDROXYzine 25 mg Capsule 50 MG PO (06:09)
[2021-10-25 06:10] VITALS: RESP 16
[2021-10-25] MEDS: oxyCODONE-APAP 10-325 mg Tablet 1 TAB PO ×2 (06:10→12:11)
--- NOTE | 2021-10-25 06:10 | PC.NURSE ---
PT REQUESTED PAIN AND ANXIETY MEDICATIONS. OXYCODONE 1 TAB AND VISTARIL 50MG GIVEN PER PT REQUEST.
[2021-10-25 06:35] LABS: Glucose Point of Care 114 mg/dL (70-110)
--- NOTE | 2021-10-25 07:15 | PC.NURSE ---
PT RESTING QUIETLY WAITING FOR BREAKFAST.
[2021-10-25] MEDS: duloxetine 30 mg Capsule 60 MG PO ×2 (10:25→20:32)
[2021-10-25] MEDS: metoprolol succinate ER (24 HR) 25 mg Tablet 50 MG PO (10:25)
[2021-10-25] MEDS: acetaminophen 325 mg Tablet 650 MG PO ×2 (10:26→17:45)
[2021-10-25] MEDS: cyclobenzaprine 10 mg Tablet PO ×2 (10:27→23:08)
[2021-10-25] MEDS: amlodipine 10 mg Tablet PO (10:27)
[2021-10-25] MEDS: spironolactone 25 mg Tablet PO (10:27)
[2021-10-25] MEDS: atorvastatin 40 mg Tablet PO (10:27)
[2021-10-25] MEDS: lidocaine 5% Patch 1 PATCH TOPICAL (10:28)
--- NOTE | 2021-10-25 10:39 | NPU.GN ---
[facility] Group Topic: Mike Valerio General Mood of Group: Cherrie did not attend group this morning. She wanted to sleep.
[2021-10-25 10:58] LABS: Glucose Point of Care 184 mg/dL (70-110)
[2021-10-25] MEDS: insulin lispro 100 unit/1 mL SUBCUT ×2 (11:29→21:01)
[2021-10-25] MEDS: OLANZapine 5 mg ODT PO ×2 (11:30→17:45)
[2021-10-25 12:11] VITALS: RESP 14; O2SAT 98
--- NOTE | 2021-10-25 13:34 | P.NPUPN_ITS ---
Subjective NPU Subjective: Patient presents today reporting that she is feeling okay but we discussed how critical it is best to get her connected with home health services to end the cycle of inpatient medical and psychiatric stays that are more about inability to navigate outpatient services to get needs met. We also discussed the fact that Dr. Thompson would be in tomorrow to continue this process. She was very interested in making sure she was going to have to be here for a long time and possibly could get out this week. Mental Status Exam MSE Comments: This is an overweight white female in hospital scrubs with limi marcela grooming and eye contact.? With notable below-knee amputation on her left leg and a healing bloody area in the middle top of her forehead that is primary care sales representative of recent head-banging.? No abnormal movements except for psychomotor retardation.? More cooperative with exam in no acute distress.? S peech was decreased rate and volume.? Mood described as okay, affect congruent.? Thought process organized.? Thought content: Patient denied suicidal or homicidal ideation, there were no delusions reported or noted, she denied auditory or visual hallucinations.? Attention and concentration were improving and memory appeared more reliable but none were formally tested.? She is alert and oriented x3.? Insight and judgment are limited,?and impulse control is limited. Vitals/I&O/Wt Last Vital Signs Temp 97.7 F 10/25/21 06:00 Pulse 69 10/25/21 06:00 Resp 18 10/25/21 06:00 BP 100/55 10/25/21 06:00 Pulse Ox 99 10/25/21 06:00 Data NPU : 10/23/21 20:19 10/23/21 20:19 A&P Assessment and plan (1) Suicidal ideation: Status: Acute (2) Intentional self-harm: Status: Acute (3) Hyperglycemia: Status: Acute (4) Acute dehydration: Status: Acute (5) Depression: Status: Acute Qualifiers: Depression Type: unspecified Qualified Code(s): F32.9 - Major depressive disorder, single episode, unspecified (6) Diabetes mellitus type 1: Status: Chronic Qualifiers: Diabetes mellitus complication status: with hyperglycemia Qualified Code(s): E10.65 - Type 1 diabetes mellitus with hyperglycemia (7) Diabetic gastroparesis: Status: Chronic (8) Anemia of chronic disease: Status: Acute (9) Below-knee amputation of left lower extremity: Status: Acute (10) Insomnia: Status: Acute Qualifiers: Insomnia type: due to medical condition Qualified Code(s): G47.01 - Insomnia due to medical condition (11) GERD (gastroesophageal reflux disease): Status: Acute Qualifiers: Esophagitis presence: without esophagitis Qualified Code(s): K21.9 - Gastro-esophageal reflux disease without esophagitis (12) ALEJANDRO (generalized anxiety disorder): Status: Acute (13) Noncompliance: Status: Acute (14) Diabetic ophthalmopathy: Status: Acute (15) Coronary artery disease: Status: Acute Qualifiers: Coronary Disease-Associated Artery/Lesion type: [place] artery [place] vs. transplanted heart: [place] heart Associated angina: without angina Qualified Code(s): I25.10 - Atherosclerotic heart disease of [place] coronary a rtery without angina pectoris (16) Diabetic neuropathy: Status: Acute Qualifiers: Diabetes mellitus type: type 1 Diabetes mellitus complication detail: diabetic polyneuropathy Qualified Code(s): E10.42 - Type 1 diabetes mellitus with diabetic polyneuropathy (17) Amputation of toe of right foot: Status: Acute (18) Low back pain: Status: Acute (19) Pain of amputation stump of left lower extremity: Status: Acute (20) History of financial difficulties: Status: Acute (21) Hypertension: Status: Chronic Qualifiers: Hypertension type: unspecified Qualified Code(s): I10 - Essential (primary) hypertension Plan This is a 41-year-old female with multiple admissions wanted to because of the pain Plan: 1.? Continue current medication.? Currently getting her fzodev-yuf-gfsqj oxycodone but need to ensure an appointment for pain management occurs possibly at discharge. 2.? Continue every 15 minute checks for safety. 3.? Encourage individual, group and milieu therapies. 4.? Encourage sober living treatment after discharge at the highest level of care to which she is willing to commit. 5.? 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 Otherwise she could possibly be a candidate for some kind of assisted living/nursing services. 6.? We will curbside medicine for assistance in a home health order and then place 1. We will additionally refer her to home health agency is in the community. Plan to secure appointment for pain management at discharge hopefully. Involuntary Hold Information 96 Hour Hold: 96 Hour Involuntary Admission: Yes 96 Hour Hold Ending Date: 09/15/21 96 Hour Hold Ending Time: 00:01 Attestations NPU Medical Necessity Statement*: Inpatient hospitalization is medically necessary and the clinically appropriate intervention at this time.? We will initiate medications and make changes as indicated.? Likely length of stay 1-3 days 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 Code Acute Transfer Man for Chg Fwd Diagnoses Suicidal ideation R45.851 Intentional self-harm Hyperglycemia R73.9 Acute dehydration E86.0 Depression F32.9 Depression Type: unspecified Diabetes mellitus type 1 E10.65 Diabetes mellitus complication status: with hyperglycemia Diabetic gastroparesis E11.43; K31.84 Anemia of chronic disease D63.8 Below-knee amputation of left lower extremity S88.112A Insomnia G47.01 Insomnia type: due to medical condition GERD (gastroesophageal reflux disease) K21.9 Esophagitis presence: without esophagitis ALEJANDRO (generalized anxiety disorder) F41.1 Noncompliance Z91.19 Diabetic ophthalmopathy E11.39 Coronary artery disease I25.10 Coronary Disease-Associated Artery/Lesion type: [place] artery [place] vs. transplanted heart: [place] heart Associated angina: without angina Diabetic neuropathy E10.42 Diabetes mellitus type: type 1 Diabetes mellitus complication detail: diabetic polyneuropathy Amputation of toe of right foot S98.131A Low back pain M54.5 Pain of amputation stump of left lower extremity T87.89; M79.605 History of financial difficulties Z87.898 Hypertension I10 Hypertension type: unspecified
[2021-10-25 14:00] VITALS: BP 91/55; PULSE 69; RESP 16; TEMP 36.7; O2SAT 98
[2021-10-25] MEDS: gabapentin 300 mg Capsule 600 MG PO ×3 (14:04→20:30)
[2021-10-25 16:38] LABS: Glucose Point of Care 102 mg/dL (70-110)
[2021-10-25] MEDS: quetiapine 100 mg Tablet 200 MG PO (20:30)
[2021-10-25 20:34] VITALS: BP 106/64; PULSE 78; RESP 17; TEMP 36.6; O2SAT 96
[2021-10-25] MEDS: LORazepam 0.5 mg Tablet PO (20:36)
[2021-10-25 20:54] LABS: Glucose Point of Care 248 mg/dL (70-110)
[2021-10-25] MEDS: insulin glargine 100 units/1 mL 20 UNIT SUBCUT (21:01)
[2021-10-25] MEDS: trazodone 50 mg Tablet PO (23:08)
--- NOTE | 2021-10-26 01:17 | PHA.FALL ---
A Pharmacy Consult Was Conducted For Cherrie Solomon Due To: [place] Fall Scale Risk Level: High Fall Risk On 10/25/21 20:00 And A Medication Fall Risk Score Greater Than 10. The Recommendations Are As Follows: Amlodipine DYLAN: 1,3,4,5,7,9,10 Cyclobenzaprine DYLAN: 1,3,4,9,10 Duloxetine DYLAN: 1,4,7 Gabapentin DYLAN: 1,3,4,5,6,7,8,10 Haloperidol DYLAN: 1,3,4,5,7,8,10 Lorazepam DYLAN: 1,3,4,5,6,8,10 Metoprolol DYLAN: 1,2,3,4,5,9,10 Olanzepine DYLAN: 2,3,4,5,7,8 Oxycodone DYLAN: 1,2,3,4,5,6,7,8,9,10 Quetiapine DYLAN: 2,3,4,5,7,8 Spironolactone DYLAN: 1,2,5,8 Trazodone DYLAN: 1,2,3,4,7,8,10 Medications which cause/contribute to: 1 = sedation/fatigue/lethargy 2 = decreased alertness 3 = postural/orthostatic hypotension 4 = dizziness 5 = decreased neuromuscular function/ataxia 6 = decreased memory/cognitive impairment 7 = blurred vision 8 = confusion 9 = arrhythmias 10 = syncope 11 = anemia
[2021-10-26] MEDS: hyDROXYzine 25 mg Capsule 50 MG PO ×2 (01:50→10:52)
--- NOTE | 2021-10-26 03:49 | PC.NURSE ---
2308 Patient is requesting something for sleep. She has been awake since about 2030 asking for food every 20-30 minutes. Trazodone 50mg po was given for sleep. Medication was only effective until 0150. Patient requested another Trazodone. She was educated on the fact we can't give sleep aides this late, hence it makes them sleep into the day. Patient verbalized understanding. When asked if she were anxious she responded, yes. Vistaril 50 mg po given for anxiety. Patient sat on her bed awake for 30-45 minutes. She finally layed down and is now resting quietly with her eyes closed.
[2021-10-26 06:00] VITALS: BP 124/75; PULSE 80; RESP 16; TEMP 36.4; O2SAT 98
[2021-10-26] MEDS: levoFLOXacin 500 mg Tablet PO (06:26)
[2021-10-26 06:29] VITALS: RESP 18
[2021-10-26] MEDS: oxyCODONE-APAP 10-325 mg Tablet 1 TAB PO ×3 (06:29→20:55)
[2021-10-26 07:41] LABS: Glucose Point of Care 145 mg/dL (70-110)
[2021-10-26] MEDS: lidocaine 5% Patch 1 PATCH TOPICAL (08:14)
[2021-10-26] MEDS: insulin lispro 100 unit/1 mL SUBCUT ×4 (08:16→20:53)
[2021-10-26] MEDS: atorvastatin 40 mg Tablet PO (08:17)
[2021-10-26] MEDS: metoprolol succinate ER (24 HR) 25 mg Tablet 50 MG PO (08:17)
[2021-10-26] MEDS: amlodipine 10 mg Tablet PO (08:17)
[2021-10-26] MEDS: spironolactone 25 mg Tablet PO (08:17)
[2021-10-26] MEDS: gabapentin 300 mg Capsule 600 MG PO ×4 (08:17→20:54)
[2021-10-26] MEDS: duloxetine 30 mg Capsule 60 MG PO ×2 (08:17→20:54)
[2021-10-26] MEDS: cyclobenzaprine 10 mg Tablet PO (08:18)
--- NOTE | 2021-10-26 11:09 | W.PM.NPUPNS ---
Subjective NPU Subjective: She says that she is doing better. Her pain is much better. She is sleeping well. She denies any suicidal or homicidal ideation. She missed her appointment with her pain medication provider because providers from [place] and they would not be able to see her if she came to the appointment late. She was supposed to walk in but Medicaid would not take it to a walk-in appointment. She agrees to stay longer so that we can set up her appointments and get home health set up for her. Mental Status Exam MSE Comments: This is an overweight white female in hospital scrubs with limited grooming and eye contact.? With notable below-knee amputation on her left leg and a healing bloody area in the middle top of her forehead that is financial service representative of recent head-banging.? No abnormal movements except for psychomotor retardation.? More cooperative with exam in no acute distress.? Speech was decreased rate and volume.? Mood described as okay, affect congruent.? Thought process organized.? Thought content: Patient denied suicidal or homicidal ideation, there were no delusions reported or noted, she denied auditory or visual hallucinations.? Attention and concentration were improving and memory appeared more reliable but none were formally tested.? She is alert and oriented x3.? Insight and judgment are limited,?and impulse control is limited. Cognition: Patient Appearance: Disheveled/Poor Hygiene Level of Consciousness: Awake and Alert Patient Cognition Impaired: Yes (Medication) Ability to Follow Directions: Poor Patient Orientation (long list): Person, Place, Name, Age and Birthday Comprehension Ability: Understands Concepts Hallucination Type: None Delusion Description: Persecutory and Somatic Thought Process: Circumstantial Affect: Affect Description: Appropriate and Calm Depressive Symptoms: Unhappiness Behavior: Patient Behavior: Appropriate and Withdrawn Speech Pattern: Appropriate and Clear Vitals/I&O/Wt Last Vital Signs Temp 97.6 F 10/26/21 06:00 Pulse 80 10/26/21 06:00 Resp 18 10/26/21 06:29 BP 124/75 10/26/21 06:00 Pulse Ox 98 10/26/21 06:00 Data NPU : 10/23/21 20:19 10/23/21 20:19 A&P Assessment and plan (1) Suicidal ideation: Status: Acute (2) Intentional self-harm: Status: Acute (3) Hyperglycemia: Status: Acute (4) Acute dehydration: Status: Acute (5) Depression: Status: Acute Qualifiers: Depression Type: unspecified Qualified Code(s): F32.9 - Major depressive disorder, single episode, unspecified (6) Diabetes mellitus type 1: Status: Chronic Qualifiers: Diabetes mellitus complication status: with hyperglycemia Qualified Code(s): E10.65 - Type 1 diabetes mellitus with hyperglycemia (7) Diabetic gastroparesis: Status: Chronic (8) Anemia of chronic disease: Status: Acute (9) Below-knee amputation of left lower extremity: Status: Acute (10) Insomnia: Status: Acute Qualifiers: Insomnia type: due to medical condition Qualified Code(s): G47.01 - Insomnia due to medical condition (11) GERD (gastroesophageal reflux disease): Status: Acute Qualifiers: Esophagitis presence: without esophagitis Qualified Code(s): K21.9 - Gastro-esophageal reflux disease without esophagitis (12) ALEJANDRO (generalized anxiety disorder): Status: Acute (13) Noncompliance: Status: Acute (14) Diabetic ophthalmopathy: Status: Acute (15) Coronary artery disease: Status: Acute Qualifiers: Coronary Disease-Associated Artery/Lesion type: [place] artery [place] vs. transplanted heart: [place] heart Associated angina: without angina Qualified Code(s): I25.10 - Atherosclerotic heart disease of [place] coronary artery without angina pectoris (16) Diabetic neuropathy: Status: Acute Qualifiers: Diabetes mellitus type: type 1 Diabetes mellitus complication detail: diabetic polyneuropathy Qualified Code(s): E10.42 - Type 1 diabetes mellitus with diabetic polyneuropathy (17) Amputation of toe of right foot: Status: Acute (18) Low back pain: Status: Acute (19) Pain of amputation stump of left lower extremity: Status: Acute (20) History of financial difficulties: Status: Acute (21) Hypertension: Status: Chronic Qualifiers: Hypertension type: unspecified Qualified Code(s): I10 - Essential (primary) hypertension Plan This is a 41-year-old female with multiple admissions wanted to because of the pain Plan: 1.? Continue current medication.? Currently getting her ykxryp-itx-eaato oxycodone but need to ensure an appointment for pain management occurs possibly at discharge. 2.? Continue every 15 minute checks for safety. 3.? Encourage individual, group and milieu therapies. 4.? Encourage sober living treatment after discharge at the highest level of care to which she is willing to commit. 5.? Plan for discharge as soon as we can identify some resources to assist with her outpatient functioning manager of case management etc.? Otherwise she could possibly be a candidate for some kind of assisted living/nursing services. 6.? We will refer her to home health agency is in the community. Plan to secure appointment for pain management at discharge hopefully. Involuntary Hold Information 96 Hour Hold: 96 Hour Involuntary Admission: Yes 96 Hour Hold Ending Date: 09/15/21 96 Hour Hold Ending Time: 00:01 Attestations NPU Medical Necessity Statement*: Inpatient hospitalization is medically necessary and the clinically appropriate intervention at this time. We will initiate medications and make changes as indicated. 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 Code Acute Wheel Blocker for Chg Fwd Diagnoses Suicidal ideation R45.851 Intentional self-harm Hyperglycemia R73.9 Acute dehydration E86.0 Depression F32.9 Depression Type: unspecified Diabetes mellitus type 1 E10.65 Diabetes mellitus complication status: with hyperglycemia Diabetic gastroparesis E11.43; K31.84 Anemia of chronic disease D63.8 Below-knee amputation of left lower extremity S88.112A Insomnia G47.01 Insomnia type: due to medical condition GERD (gastroesophageal reflux disease) K21.9 Esophagitis presence: without esophagitis ALEJANDRO (generalized anxiety disorder) F41.1 Noncompliance Z91.19 Diabetic ophthalmopathy E11.39 Coronary artery disease I25.10 Coronary Disease-Associated Artery/Lesion type: [place] artery [place] vs. transplanted heart: [place] heart Associated angina: without angina Diabetic neuropathy E10.42 Diabetes mellitus type: type 1 Diabetes mellitus complication detail: diabetic polyneuropathy Amputation of toe of right foot S98.131A Low back pain M54.5 Pain of amputation stump of left lower extremity T87.89; M79.605 History of financial difficulties Z87.898 Hypertension I10 Hypertension type: unspecified
[2021-10-26 11:57] LABS: Glucose Point of Care 141 mg/dL (70-110)
[2021-10-26] MEDS: polyethylene glycol 3350 Pkt 17 gm PO (12:00)
[2021-10-26 14:00] VITALS: BP 122/78; PULSE 78; RESP 16; TEMP 36.4; O2SAT 98
[2021-10-26 14:04] VITALS: RESP 16; O2SAT 98
[2021-10-26] MEDS: OLANZapine 5 mg ODT PO (15:13)
[2021-10-26] MEDS: LORazepam 0.5 mg Tablet PO (15:28)
[2021-10-26 16:43] LABS: Glucose Point of Care 251 mg/dL (70-110)
[2021-10-26] MEDS: docusate sodium 100 mg Capsule PO (18:01)
[2021-10-26 19:00] VITALS: BP 111/72; PULSE 94; RESP 18; TEMP 36.6; O2SAT 97
[2021-10-26] MEDS: insulin glargine 100 units/1 mL 20 UNIT SUBCUT (20:53)
[2021-10-26] MEDS: quetiapine 100 mg Tablet 200 MG PO (20:54)
[2021-10-26] MEDS: trazodone 50 mg Tablet PO (20:54)
[2021-10-26 20:55] VITALS: RESP 18
[2021-10-27] MEDS: LORazepam 0.5 mg Tablet PO (02:05)
--- NOTE | 2021-10-27 02:09 | PC.NURSE ---
Patient was anxious. Came up to nurses station requesting Ativan. Ativan given.
[2021-10-27 03:33] VITALS: BP 111/72; PULSE 94; RESP 18; TEMP 36.6; O2SAT 97
[2021-10-27] MEDS: levoFLOXacin 500 mg Tablet PO (05:51)
[2021-10-27 05:53] VITALS: RESP 18; O2SAT 96
[2021-10-27] MEDS: oxyCODONE-APAP 10-325 mg Tablet 1 TAB PO ×2 (05:53→11:43)
[2021-10-27 06:48] LABS: Glucose Point of Care 171 mg/dL (70-110)
[2021-10-27 06:48] LABS: Glucose Point of Care 149 mg/dL (70-110)
[2021-10-27] MEDS: gabapentin 300 mg Capsule 600 MG PO (08:28)
[2021-10-27] MEDS: insulin lispro 100 unit/1 mL SUBCUT ×2 (08:28→11:43)
[2021-10-27] MEDS: amlodipine 10 mg Tablet PO (08:28)
[2021-10-27] MEDS: cyclobenzaprine 10 mg Tablet PO (08:28)
[2021-10-27] MEDS: spironolactone 25 mg Tablet PO (08:28)
[2021-10-27] MEDS: docusate sodium 100 mg Capsule PO (08:28)
[2021-10-27] MEDS: metoprolol succinate ER (24 HR) 25 mg Tablet 50 MG PO (08:28)
[2021-10-27] MEDS: atorvastatin 40 mg Tablet PO (08:28)
[2021-10-27] MEDS: lidocaine 5% Patch 1 PATCH TOPICAL (08:29)
[2021-10-27] MEDS: polyethylene glycol 3350 Pkt 17 gm PO (08:29)
[2021-10-27] MEDS: duloxetine 30 mg Capsule 60 MG PO (08:43)
--- NOTE | 2021-10-27 10:39 | P.NPUDS_ITS ---
Diagnoses at Discharge Discharge Diagnosis (1) Suicidal ideation: Status: Acute (2) Intentional self-harm: Status: Acute (3) Hyperglycemia: Status: Acute (4) Acute dehydration: Status: Acute (5) Depression: Status: Acute Qualifiers: Depression Type: unspecified Qualified Code(s): F32.9 - Major depressive disorder, single episode, unspecified (6) Diabetes mellitus type 1: Status: Chronic Qualifiers: Diabetes mellitus complication status: with hyperglycemia Qualified Code(s): E10.65 - Type 1 diabetes mellitus with hyperglycemia Permanent problem details: diagnosed age 15, history of peripheral neuropathy, gastroparesis and nephropathy (7) Diabetic gastroparesis: Status: Chronic (8) Anemia of chronic disease: Status: Acute (9) Below-knee amputation of left lower extremity: Status: Acute (10) Insomnia: Status: Acute Qualifiers: Insomnia type: due to medical condition Qualified Code(s): G47.01 - Insomnia due to medical condition (11) GERD (gastroesophageal reflux disease): Status: Acute Qualifiers: Esophagitis presence: without esophagitis Qualified Code(s): K21.9 - Gastro-esophageal reflux disease without esophagitis (12) ALEJANDRO (generalized anxiety disorder): Status: Acute (13) Noncompliance: Status: Acute (14) Diabetic ophthalmopathy: Status: Acute (15) Coronary artery disease: Status: Acute Qualifiers: Coronary Disease-Associated Artery/Lesion type: robinson artery [place] vs. transplanted heart: robinson heart Associated angina: without angina Qualified Code(s): I25.10 - Atherosclerotic heart disease of robinson coronary artery without angina pectoris Permanent problem details: hx of stenting (16) Diabetic neuropathy: Status: Acute Qualifiers: Diabetes mellitus type: type 1 Diabetes mellitus complication detail: diabetic polyneuropathy Qualified Code(s): E10.42 - Type 1 diabetes mellitus with diabetic polyneuropathy (17) Amputation of toe of right foot: Status: Acute (18) Low back pain: Status: Acute (19) Pain of amputation stump of left lower extremity: Status: Acute (20) History of financial difficulties: Status: Acute (21) Hypertension: Status: Chronic Qualifiers: Hypertension type: unspecified Qualified Code(s): I10 - Essential (primary) hypertension Reason for Visit Reason for Visit: SI; BACK PAIN; CUT ON FOREARM Brief History: Ms Solomon is a 41-year-old lady with complex past medical history primarily complicated by psychiatric disorder who also has hypertension, obesity, medication compliance, diabetes who presents emergency department for various concerns.? She called an ambulance for mental health evaluation which she reports is due to abdominal pain.? She has a longstanding history of gastroparesis but reports that this is worse.? She has generalized abdominal pain which she has difficulty characterizing.? It got to the point where she was banging her head against objects and has a laceration/injury associated with this.? The patient arrived in restraints by EMS.? She does not report any other significant changes in health, exacerbating, or alleviating factors.? She has had similar episodes in the past.? She reports compliance with her medications. Onset (ago): unknown Duration: constant History of same: Yes Exacerbating factors: other Treatments prior to arrival: physical restraints If self harm: has acted on plan She was admitted to the neuropsychiatric unit for definitive treatment of those issues.? She presented this morning reporting that she was having significant nausea and I met her at the bedside with a full basin of brownish emesis.? She started initially reporting that she had run out of some of her medication including her pain medication, once again we divided this reflected a logistical situation where she had not made the appointment.? She once again is endorsing suicidal thoughts secondary to not having access to her medication and by being in that situation being in so much pain.? Her blood sugars were way out of whack and took significant work by the emergency department to get her medically cleared for the unit but the challenge was her behavioral pattern once again with the police and the emergency department with head-banging, forced emesis at times with a bloody tammy on her forehead from the fresh head-banging.? We discussed the critical need for us to find some kind of psychosocial setting and or safety net for her so that we were having inpatient hospitalizations that may reflect feeling suicidal and being are within but also reflect doing things the same way and getting the same result.? She denies any difference in her situation from the last hospitalization, living in the same place having the same helpers etc.? She can give no good reason why she had not made it to her appointment for pain management initially saying that she had to go to a walk-in but we had given her appointment prior to leaving.? There have been no substantive changes since her discharge summary 09/25/2021. Hospital Course Hospital Course She slowly acclimated to the individual, group and milieu therapies provided. She was restarted on her outpatient medications and responded well. She tolerated these doses and showed steady improvement during her stay. She was able to contract for safety outside hospital prior to discharge. During the hospitalization, patient had routine laboratory studies which were within normal limits except for few outliers. Additionally there was a general medical evaluation which was also within normal limits and revealed no new acute processes. Discharge Summary: At the time of discharge, lethality was denied. Documents were made to get her home health all available agencies have denied her and we are working on other avenues. Mood and anxiety were well managed. Patient endorsed a plan to follow-up with the aftercare recommendations of the treatment team. Patient was evaluated and deemed to be absent credible lethality, and had achieved the maximum benefit from an inpatient hospitalization, so was discharged. Involuntary Hold Information 96 Hour Hold: 96 Hour Involuntary Admission: Yes 96 Hour Hold Ending Date: 09/15/21 96 Hour Hold Ending Time: 00:01 Mental Status Exam MSE Comments: This is an overweight white female in hospital scrubs with limited grooming and eye contact.? With notable below-knee amputation on her left leg and a healing bloody area in the middle top of her forehead that is account service representative of recent head-banging.? No abnormal movements except for psychomotor retardation.? More cooperative with exam in no acute distress.? Speech was decreased rate and volume.? Mood described as okay, affect congruent.? Thought process organized.? Thought content: Patient denied suicidal or homicidal ideation, there were no delusions reported or noted, she denied auditory or visual hallucinations.? Attention and concentration were improving and memory appeared more reliable but none were formally tested.? She is alert and oriented x3.? Insight and judgment are limited,?and impulse control is limited. Cognition: Patient Appearance: Disheveled/Poor Hygiene Level of Consciousness: Awake and Alert Patient Cognition Impaired: Yes (Medication) Ability to Follow Directions: Poor Patient Orientation (long list): Person, Place, Name, Age and Birthday Comprehension Ability: Understands Concepts Hallucination Type: None Delusion Description: Persecutory and Somatic Thought Process: Circumstantial Affect: Affect Description: Appropriate and Calm Depressive Symptoms: Unhappiness Behavior: Patient Behavior: Appropriate and Withdrawn Speech Pattern: Appropriate and Clear Discharge Data Studies Completed and Pending: Completed Studies During Hospitalization Category Date Time Status CT abdomen pelvis w con* [id number] Urge nt Cat Scan 10/21/21 14:[address] head wo con* [id number] Urgent Cat Scan 10/21/21 14:36 Completed Radiology Impressions Abdomen/Pelvis CT 10/21/21 14:36 IMPRESSION: No acute findings.Non acute findings as described above. COMMENTS: Consistent with the [employer]'s Incidental Findings Committee white paper (J Am Clarissa Radiol 2018): Any incidental renal lesion less than 1 cm or classified as too small to characterize, or any incidental cystic renal lesion characterized as simple-appearing, is likely benign. No follow-up imaging is recommended for these lesions per consensus recommendations based on imaging criteria. Head CT 10/21/21 14:36 IMPRESSION: 1. No acute intracranial abnormality. 2. Mild diffuse cerebral atrophy. Laboratory Results WBC 14.1 10^3/uL (4.0 -10.0) H 10/23/21 20:19 Corrected WBC Cancelled 10/21/21 14:43 RBC 4.77 10^6/uL (4.1 -5.3) 10/23/21 20:19 Hgb 12.4 g/dL (11.5-1 5.3) 10/23/21 20:19 Hct 39.3 % (37.0-47.0 ) 10/23/21 20:19 MCV 82.4 fl (81-99) 10/23/21 20:19 MCH 26.0 pg (28.0-34. 0) L 10/23/21 20:19 MCHC 31.6 g/dL (30.0-3 6.0) 10/23/21 20:19 RDW 15.0 % (12.1-15.1 ) 10/23/21 20:19 Plt Count 379 10^3/cmm (130 -400) 10/23/21 20:19 MPV 8.9 fL (7.4-10.4) 10/23/21 20:19 Gran % Cancelled 10/21/21 14:43 Neut % (Auto) 77.9 % 10/23/21 20:19 Lymph % (Auto) 6.8 % 10/23/21 20:19 [place] % (Auto) 2.9 % 10/23/21 20:19 Eos % (Auto) 11.8 % 10/23/21 20:19 Baso % (Auto) 0.2 % 10/23/21 20:19 Neut # (Auto) 10.95 10^3/uL (1. 8-7.7) H 10/23/21 20:19 Lymph # (Auto) 1.0 10^3/uL (0.8- 4.8) 10/23/21 20:19 [place] # (Auto) 0.4 10^3/uL (0.2- 0.9) 10/23/21 20:19 Eos # (Auto) 1.7 10^3/uL (0.0- 0.8) H 10/23/21 20:19 Baso # (Auto) 0.0 10^3/uL (0.0- 0.1) 10/23/21 20:19 Absolute Gran (aut o) Cancelled 10/21/21 14:43 Nucleated RBC % (a uto) 0 % 10/23/21 20:19 Nucleated RBCs # 0.0 /100WBC 10/23/21 20:19 Sodium 136 mmol/L (136-1 45) 10/23/21 20:19 Potassium 4.2 mmol/L (3.5-5 .1) 10/23/21 20:19 Chloride 99 mmol/L (98-107 ) 10/23/21 20:19 Carbon Dioxide 20 mmol/L (22-29) L 10/23/21 20:19 Anion Gap 21.2 (5-19) H 10/23/21 20:19 BUN 20 mg/dL (6-20) 10/23/21 20:19 Creatinine 1.1 mg/dL (0.5-0. 9) H 10/23/21 20:19 GFR Calculation 54.2 mL/min (90-1 30) L 10/23/21 20:19 Glucose 205 mg/dL (65-115 ) H 10/23/21 20:19 POC Glucose 171 mg/dL (70-110 ) H 10/27/21 06:41 Calculated Osmolal ity 291 mOsm/kg (285- 295) 10/23/21 20:19 Lactic Acid 2.6 mmol/L (0.5-2 .2) H 10/21/21 22:29 Lactic Acid (Sepsi s) 1.2 mmol/L (0.5-2 .2) 10/22/21 01:28 Calcium 10.4 mg/dL (8.5-1 0.5) 10/23/21 20:19 Iron 56 ug/dL (37-145) 10/22/21 08:00 TIBC 346 mcg/dl 10/22/21 08:00 % Saturation 16.1 % (20-50) L 10/22/21 08:00 Unsat Iron Binding 290 ug/dL (112-34 7) 10/22/21 08:00 Ferritin 209 ng/mL (15-150 ) H 10/22/21 08:00 Total Bilirubin 0.3 mg/dL (0.15-1 .2) 10/23/21 20:19 AST 26 U/L (0-32) 10/23/21 20:19 ALT 26 U/L (0-33) 10/23/21 20:19 Alkaline Phosphata se 205 IU/L (35-105) H 10/23/21 20:19 Ammonia 20 umol/L (11-51) 10/22/21 01:28 Total Protein 9.2 g/dL (6.6-8.7 ) H 10/23/21 20:19 Albumin 4.8 g/dL (3.5-5.2 ) 10/23/21 20:19 Globulin 4.4 g/dL (1.3-4.6 ) 10/23/21 20:19 Lipase 40 U/L (13-60) 10/21/21 15:50 HCG, Qual Negative (Negati ve) 10/21/21 17:16 Urine Color Straw (Yellow) 10/21/21 17:16 Urine Appearance Sl hazy (CLEAR) 10/21/21 17:16 Urine pH 5 (5-7) 10/21/21 17:16 Ur Specific Gravit y 1.005 (1.005-1.0 30) 10/21/21 17:16 Urine Protein 1+ (Negative) H 10/21/21 17:16 Urine Glucose (UA) 4+ (Normal) H 10/21/21 17:16 Urine Ketones Negative (Negati ve) 10/21/21 17:16 Urine Blood 2+ (Negative) H 10/21/21 17:16 Urine Nitrate Negative (Negati ve) 10/21/21 17:16 Urine Bilirubin Neg (Negative) 10/21/21 17:16 Urine Urobilinogen Norm mg/dL (Negat sade) 10/21/21 17:16 Ur Leukocyte Estephania ase Negative (Negati ve) 10/21/21 17:16 Urine RBC 0-4 /hpf (0-2) H 10/21/21 17:16 Urine WBC 25-40 /hpf (0-5) H 10/21/21 17:16 Ur Squamous Epith Cells 5-10 /hpf (0-5) H 10/21/21 17:16 Amorphous Sediment Not Reportable 10/21/21 17:16 Urine Bacteria 3+ /hpf (NONE) H 10/21/21 17:16 Salicylates < 0.3 mg/dL (3-10 ) L 10/21/21 15:50 Urine Opiates Scre en Negative ng/mL (N egative) 10/21/21 17:16 Acetaminophen < 5.0 ug/mL (10-3 0) L 10/21/21 15:50 Ur Barbiturates Sc reen Negative ng/mL (N egative) 10/21/21 17:16 Ur Phencyclidine S crn Negative ng/mL (N egative) 10/21/21 17:16 Ur Amphetamines Sc reen Negative ng/mL (N egative) 10/21/21 17:16 U Benzodiazepines Scrn Negative ng/mL (N egative) 10/21/21 17:16 Urine Cocaine Scre en Negative ng/mL (N egative) 10/21/21 17:16 U Marijuana (THC) Screen Negative ng/mL (N egative) 10/21/21 17:16 Ethyl Alcohol < 10 mg/dL (0-10) 10/21/21 15:50 Serum Ketones Negative (Negati ve) 10/21/21 15:50 Vitals: Last Vital Signs Temp 97.8 F 10/27/21 03:33 Pulse 94 10/27/21 03:33 Resp 18 10/27/21 05:53 BP 111/72 10/27/21 03:33 Pulse Ox 96 10/27/21 05:53 Discharge Plan Discharge Patient Disposition: Home Condition: Stable Prescriptions: New cyclobenzaprine 10 mg Tablet 10 mg PO BID PRN (Reason: Muscle Spasms) 30 Days Qty: 60 1RF oxycodone-acetaminophen 10-325 mg Tablet 1 tab PO Q6H PRN (Reason: Moderate Pain) 10 Days Qty: 40 0RF Continued cyclobenzaprine 10 mg tablet 10 mg PO BID PRN (Reason: MUSCLE SPASMS) 30 Days Qty: 60 2RF hydralazine 25 mg tablet 25 mg PO QID PRN (Reason: high blood pressure) 30 Days Qty: 120 2RF Rx Instructions: take if BP >160/>100 pantoprazole 40 mg tablet,delayed release (DR/EC) 40 mg PO DAILY 30 Days Qty: 30 2RF metoclopramide HCl 10 mg tablet 10 mg PO Q6H PRN (Reason: nausea and vomiting) 30 Days Qty: 120 2RF gabapentin 600 mg tablet 600 mg PO QID 30 Days Qty: 120 2RF Lantus Solostar U-100 Insulin 100 unit/mL (3 mL) insulin pen 40 unit SUBCUT BEDTIME 30 Days Qty: 15 2RF (DME) Comfort EZ Pen [place] 33 gauge x 1/4 needle See Rx Instructions .ROUTE .MEDSUPPLY Qty: 100 2RF Rx Instructions: As directed (DME) Blood Glucose Test Strip See Rx Instructions .Route Qty: 100 11RF Rx Instructions: Use with meter to test 3 times a day. spironolactone 25 mg Tablet 25 mg PO DAILY 30 Days Qty: 30 1RF atorvastatin 40 mg tablet 40 mg PO DAILY 30 Days Qty: 30 1RF ropinirole 1 mg tablet 1 mg PO BEDTIME 30 Days Qty: 30 1RF sennosides-docusate sodium [Senna-S] 8.6-50 mg tablet 1 tab-cap PO DAILY PRN (Reason: Constipation) 30 Days Qty: 30 1RF ondansetron 8 mg tablet,disintegrating 8 mg PO Q12H PRN (Reason: nausea and vomiting) 30 Days Qty: 60 1RF tamsulosin 0.4 mg capsule 0.4 mg PO DAILY 30 Days Qty: 30 1RF amlodipine 10 mg tablet 10 mg PO DAILY 30 Days Qty: 30 1RF docusate sodium [Colace] 100 mg capsule 100 mg PO BID 30 Days Qty: 60 1RF metoprolol succinate 25 mg tablet extended release 24 hr 50 mg PO DAILY 30 Days Qty: 60 1RF ferrous sulfate 325 mg (65 mg iron) Tablet 325 mg PO DAILY 0RF trazodone 50 mg Tablet 50 mg PO BEDTIME PRN (Reason: Insomnia) 30 Days Qty: 30 1RF quetiapine 100 mg Tablet 200 mg PO BEDTIME 30 Days Qty: 60 1RF lorazepam 0.5 mg Tablet 0.5 mg PO BID 30 Days Qty: 60 0RF duloxetine 30 mg Capsule,Delayed Release(Dr/Ec) 60 mg PO BID 30 Days Qty: 120 1RF Discharge Orders: Discharge Order (Routine); Ordered 10/27/21 Ordered By: Kris Thompson Referrals: [facility] [Other] Replaced By [facility] [Other] - 11/02/21 2:30 pm Angelic Martinez MD [Primary Care Provider] - (It is important that you follow up with your primary care provider within in 3-5 days of discharge.) Discharge Diet: Regular Discharge Activity: Resume usual activity Patient Instructions: Opioid Safety Discharge Attestations NPU Time Spent in Discharge Care*: less than 30 min Specific Discharge Activities: Specific discharge activities: educating patient, discussing with case mgr/social workers/dc planners, documenting/other paperwork and evaluating patient/reviewing data Status at Discharge: Cognitive status at discharge: cognitively intact , Behavioral status at discharge: cooperative , 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 Code Acute Chg FW DC note Diagnoses Suicidal ideation R45.851 Intentional self-harm Hyperglycemia R73.9 Acute dehydration E86.0 Depression F32.9 Depression Type: unspecified Diabetes mellitus type 1 E10.65 Diabetes mellitus complication status: with hyperglycemia Diabetic gastroparesis E11.43; K31.84 Anemia of chronic disease D63.8 Below-knee amputation of left lower extremity S88.112A Insomnia G47.01 Insomnia type: due to medical condition GERD (gastroesophageal reflux disease) K21.9 Esophagitis presence: without esophagitis ALEJANDRO (generalized anxiety disorder) F41.1 Noncompliance Z91.19 Diabetic ophthalmopathy E11.39 Coronary artery disease I25.10 Coronary Disease-Associated Artery/Lesion type: robinson artery [place] vs. transplanted heart: robinson heart Associated angina: without angina Diabetic neuropathy E10.42 Diabetes mellitus type: type 1 Diabetes mellitus complication detail: diabetic polyneuropathy Amputation of toe of right foot S98.131A Low back pain M54.5 Pain of amputation stump of left lower extremity T87.89; M79.605 History of financial difficulties Z87.898 Hypertension I10 Hypertension type: unspecified
[2021-10-27 10:48] LABS: Glucose Point of Care 158 mg/dL (70-110)
[2021-10-27 11:43] VITALS: RESP 16; O2SAT 96
[2021-10-27] MEDS: acetaminophen 325 mg Tablet 650 MG PO (11:44)
[2021-10-27] MEDS: hyDROXYzine 25 mg Capsule 50 MG PO (11:44)
[2021-10-27 12:14] VITALS: BP 112/78; PULSE 78; RESP 16; O2SAT 96
== END 2021-10-27 13:06 | disposition home or self-care (01) | DRG 881 ==
LOC: ER 10-22 03:26 → ER IP 10-22 04:10 → NP 10-22 05:40
PROVIDERS: Emergency Medicine; Internal Medicine; Admitting Provider Psychiatry & Neurology Psychiatry; Emergency Provider Emergency Medicine; PCP Family Medicine; Visit Provider Psychiatry & Neurology Psychiatry
DX: F32.A Depression, unspecified (principal); R45.851 Suicidal ideations; E86.0 Dehydration; E10.22 Type 1 diabetes mellitus with diabetic chronic kidney disease; E10.65 Type 1 diabetes mellitus with hyperglycemia; I12.9 Hypertensive chronic kidney disease with stage 1 through stage 4 chronic kidney disease, or unspecified chronic kidney disease; N18.2 Chronic kidney disease, stage 2 (mild); E66.9 Obesity, unspecified; Z68.26 Body mass index [BMI] 26.0-26.9, adult; E10.43 Type 1 diabetes mellitus with diabetic autonomic (poly)neuropathy; E10.42 Type 1 diabetes mellitus with diabetic polyneuropathy; E10.21 Type 1 diabetes mellitus with diabetic nephropathy; E10.39 Type 1 diabetes mellitus with other diabetic ophthalmic complication; K31.84 Gastroparesis; G89.4 Chronic pain syndrome; M54.50 Low back pain, unspecified; I25.10 Atherosclerotic heart disease of native coronary artery without angina pectoris; Z95.5 Presence of coronary angioplasty implant and graft; F41.1 Generalized anxiety disorder; E78.5 Hyperlipidemia, unspecified; F43.10 Post-traumatic stress disorder, unspecified; Z87.440 Personal history of urinary (tract) infections; Z89.512 Acquired absence of left leg below knee; Z89.431 Acquired absence of right foot; F17.210 Nicotine dependence, cigarettes, uncomplicated; F10.21 Alcohol dependence, in remission; D63.1 Anemia in chronic kidney disease; Z91.128 Patient's intentional underdosing of medication regimen for other reason; K59.00 Constipation, unspecified; G47.01 Insomnia due to medical condition; E87.6 Hypokalemia
CPT/HCPCS: 36415; 36416; 70450; 74177; 80048; 80053; 80306; 80307; 81001; 81025; 82009; 82140; 82728; 82962; 83540; 83550; 83605; 83690; 85025; 87077; 87086; 87186; 90471; 90715; 96365; 96372; 96375; 96376; 97150; 97165; 99285; J0696; J1200; J1630; J1815 ×2; J1885; J2060; J2250; J2405; J3010; J3486; J7030; Q9967

== ENCOUNTER 2021-11-03 14:36 | Inpatient (IN) | payer MEDICAID, SELFPAY ==
[2021-11-03 14:39] VITALS: BP 211/124; PULSE 118; RESP 18; TEMP 36.9; O2SAT 98; BMI 28.0
--- NOTE | 2021-11-03 14:54 | CTR_ITS ---
PROCEDURE INFORMATION: Exam: CT Abdomen And Pelvis With Contrast Exam date and time: 11/03/2021 4:26 PM Age: 41 years old Clinical indication: Nausea and vomiting; Patient HX: N/v R flank pain; Additional info: R sided flank pain TECHNIQUE: Imaging protocol: Computed tomography of the abdomen and pelvis with contrast. Radiation optimization: All CT scans at this facility use at least one of these dose optimization techniques: automated exposure control; mA and/or kV adjustment per patient size (includes targeted exams where dose is matched to clinical indication); or iterative reconstruction. Contrast material: OMNI 300; Contrast volume: 95 ml; Contrast route: INTRAVENOUS (IV); COMPARISON: CT abdomen pelvis w con* [id number] 10/21/2021 4:25 PM RADIATION DOSE METRICS: Total DLP (mGy-cm): 1815.07 FINDINGS: Limitations: Study somewhat limited due to streak artifact created by the patient being scanned with the arms at the sides. Liver: There is no focal abnormality within the liver. Gallbladder and bile ducts: There has been a cholecystectomy. Pancreas: The pancreas is normal. Spleen: The spleen is normal. Adrenal glands: The adrenal glands are normal. Kidneys and ureters: The right kidney is normal. Benign-appearing left renal cyst not significantly changed. There is no evidence of hydronephrosis. There is no evidence of renal or ureteral calcifications. Stomach and bowel: There is no evidence of colitis/diverticulitis. Appendix: Not identified Intraperitoneal space: There is no evidence of free intraperitoneal fluid. There is no evidence of free intraperitoneal fluid. Vasculature: The aorta demonstrates mild atherosclerotic calcification. There is no evidence of an abdominal aortic aneurysm. Lymph nodes: There is no evidence of lymphadenopathy. Urinary bladder: Urinary bladder is distended with a volume of approximately 800 cc. Urinary bladder is otherwise unremarkable. Reproductive: Unremarkable as visualized. Bones/joints: There is mild compression deformity superior endplate of T12. This is not changed from previous. Soft tissues: There is diastasis of the rectus muscles with mild umbilical hernia containing only fat. CT/CT abdomen pelvis w con* [id number] IMPRESSION: No acute findings. No significant change compared with 10/21/2021
--- NOTE | 2021-11-03 14:54 | CTR_ITS ---
PROCEDURE INFORMATION: Exam: CT Maxillofacial Without Contrast Exam date and time: 11/03/2021 4:22 PM Age: 41 years old Clinical indication: Injury or trauma; Blunt trauma (contusions or hematomas); Forehead and nose; Patient HX: PT was banging her head against a wall; Additional info: Head pain TECHNIQUE: Imaging protocol: Computed tomography images of the face without contrast. Radiation optimization: All CT scans at this facility use at least one of these dose optimization techniques: automated exposure control; mA and/or kV adjustment per patient size (includes targeted exams where dose is matched to clinical indication); or iterative reconstruction. COMPARISON: CT head wo con* [id number] 11/03/2021 4:21 PM RADIATION DOSE METRICS: Total DLP (mGy-cm): 703.9 FINDINGS: Orbital cavities: Orbits are normal. Globes are unremarkable. Bones/joints: There is nasal septal deviation towards the left. No facial fracture is identified. Paranasal sinuses: Paranasal sinuses are normally aerated and clear. Soft tissues: There is soft tissue contusion in the right side of the face and along the lateral aspect of the left orbit and frontal scalp swelling and hematoma. Dental: There is dental caries involving multiple teeth. There are possible periapical abscesses involving an upper left incisor tooth and multiple lower canine and bicuspid teeth. CT/CT facial bones wo con* [id number] IMPRESSION: 1. Dental and periodontal disease 2. No facial fracture is identified.
--- NOTE | 2021-11-03 14:55 | CTR_ITS ---
PROCEDURE INFORMATION: Exam: CT Head Without Contrast Exam date and time: 11/03/2021 4:21 PM Age: 41 years old Clinical indication: Injury or trauma; Blunt trauma (contusions or hematomas); Consciousness not specified; Patient HX: PT was banging her head against a wall; Additional info: Fall TECHNIQUE: Imaging protocol: Computed tomography of the head without contrast. Radiation optimization: All CT scans at this facility use at least one of these dose optimization techniques: automated exposure control; mA and/or kV adjustment per patient size (includes targeted exams where dose is matched to clinical indication); or iterative reconstruction. COMPARISON: CT head wo con* [id number] 10/21/2021 4:21 PM RADIATION DOSE METRICS: Total DLP (mGy-cm): 912.25 FINDINGS: Brain: Normal. No hemorrhage. Unremarkable white matter. No mass effect. Cerebral ventricles: No ventriculomegaly. Paranasal sinuses: Visualized sinuses are unremarkable. No fluid levels. Mastoid air cells: Visualized mastoid air cells are well aerated. Bones/joints: Unremarkable. No acute fracture. Soft tissues: There is swelling of the right frontal scalp with a new area of increased density consistent with some scalp contusion or hematoma increased compared with 10/21/2021. CT/CT head wo con* [id number] IMPRESSION: Scalp hematoma. No acute intracranial finding.
--- NOTE | 2021-11-03 15:01 | W.ED.GENADLT ---
HPI - General Adult General: Chief complaint: Psychiatric Symptoms Stated complaint: SUICIDAL IDEATIONS Time Seen by Provider: 11/03/21 14:50 History of Present Illness: HPI: [41]yo patient w/ hx of SI/self-harm behavior BIBA for significant r side flank pain and desire for suicide. Patient tells me that for the last day she has sustained significant right-sided flank pain. Patient has history of renal colic. Patient says that she can no longer take the pain started hitting her head against the wall. on arrival, the patient is AAOx3 and cooperative with my evaluation. No focal complaints of chest pain, shortness of breath, palpitations, N/V, focal GI/ complaints. Currently reports SI. No complaints of hallucinations. Onset: acute Duration: ongoing Location: home Severity: severe Associated symptoms: Deny chest pain, dyspnea, nausea, palpitations or vomiting Review of Systems Const: Denies: fever(s) or chills Eyes: Denies: change in vision ENMT: Denies: mouth pain Card: Denies: chest pain or palpitations Resp: Denies: dyspnea or non-productive cough GI: Reports: other (+r flank pain); Denies: abdominal pain, nausea, vomiting or diarrhea : Denies: dysuria Musc: Denies: extremity pain Skin/Breast: Reports: new lesions (+forehead hematoma and bruises) Neuro: Denies: weakness in extremities Psych: Reports: other (Normal mood) Keith/Lymph: Denies: easy bruising PFSH ED PFSH: Medical History Acute hyponatremia Acute renal failure Back pain C. 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 Nausea & vomiting Non-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 Psychiatric care PTSD (post-traumatic stress disorder) Self-harming behavior Self-harming behavior Suicidal ideation Suicidal ideation Toe infection UTI (urinary tract infection) Surgical History Below-knee amputation of left lower extremity H/O esophagogastroduodenoscopy (12/31/20) Bile reflux gastritis, grade B esophagitis H/O exploratory laparotomy x 3 History of amputation of right forefoot Hx of cholecystectomy Previous section x 3 S/P coronary artery stent placement x 1 S/P percutaneous endoscopic gastrostomy (PEG) tube placement Family History Unknown Diabetes extensive, type II Other CHF (congestive heart failure) Social History Smoking and tobacco status: current every day smoker Quit status (tobacco): has quit using tobacco Former quit date comment: 15 yrs ago Alcohol intake: former Former alcohol use details: 15 yrs ago Household members: spouse Marital status: Sexually active: Yes (1, ) Female Reproductive History: Spontaneous abortions: No Physical Exam Const: COMMON NORMALS: alert HENMT: COMMON NORMALS: atraumatic HEAD & SCALP: atraumatic MOUTH: moist mucous membranes not abnormal Eye: COMMON NORMALS: EOMs intact bilaterally and conjunctivae normal CONJUNCTIVA: Yes conjunctivae normal Neck/C-Spine: COMMON NORMALS: full ROM and supple Resp: COMMON NORMALS: normal respiratory effort and clear to auscultation bilaterally AUSCULTATION: clear to auscultation bilaterally Cardio: COMMON NORMALS: regular rate RATE: regular rate GI: COMMON NORMALS: Soft to palpation PALPATION: Yes Soft to palpation OTHER: + R flank focal TTP. +R CVA. NO guarding rebound, guarding, rigidity. Neg Pearce/Neg McBurney's point tenderness, no suprabupic tenderness to palpation. Extremity: COMMON NORMALS: full ROM Neuro: SENSORIUM/ORIENTATION: Yes alert MOTOR EXAM: No Abnormal motor strength present and Other motor observations present (no focal motor deficits) Psych: COMMON NORMALS: speech normal SPEECH: Yes normal speech MOOD & AFFECT: Yes euthymic mood Course Vital Signs: Vital signs: Vital Signs Temperature 98.4 F 11/03/21 14:39 Pulse Rate 111 H 11/03/21 19:04 Respiratory Rate 22 H 11/03/21 19:04 Blood Pressure 193/124 11/03/21 19:04 Pulse Oximetry 97 11/03/21 17:56 MDM - General Adult Medical Decision Making [41]yo patient w/ hx of renal colic, depression presenting for R flank pain and self harm. HDS, exam within normal limit Thoughts are linear and organized, and the patient has no AH/VH, or HI. Clinically the patient displays no overt toxidrome; they are well appearing, with low suspicion for toxic ingestion given history and exam. Symptoms unlikely 2/2 anemia, hypothyroidism, infection, or ICH. Workup: CBC, CMP, Lipase, salicylate/tylenol, TSH,free T4, bHCG, CT abd+pelvis, CT head, CT face Lab findings: wnl, CT head negative for brain bleed, CT abd negative for any acute findings. Patient is upto date with TDAP. At 3:20 PM, patient became acutely agitated was pain her head against the wall. Patient had to be physically restrained therefore chemical restraints were placed. Patient was placed in four-point restraint and received Haldol, Benadryl, Ativan and 200mg of keamine with significant relief of agitation. Patient has 4 point restrainints available for protection as needed for self harm. Anion gap wnl. No ketones and ABG wnl, unlikley to be DKA. Patient continues to be elevated blood pressure requiring multiple doses of hydralazine. Patient received 1 mg of Dilaudid for significant right-sided flank pain. Performed a bedside ultrasound which did not show any signs of dissection flap of the abdominal aorta. In addition, CT abdomen pelvis w/ IV contrast not show any signs of dissection flap. Blood pressure and heart rate improved after patient received pain medicine. [4:30pm] On reassessment, labs and workup wnl. Patient is hemodynamically stable with no acute medical complaints. Case discussed with psychiatric provider Dr. Thompson at [facility] psych inpatient with recommendation for admission Disposition: Psych Lab Data : 11/03/21 15:24 11/03/21 15:24 Radiology Impressions Abdomen/Pelvis CT 11/03/21 14:54 IMPRESSION: No acute findings. No significant change compared with 10/21/[address] 11/03/21 14:54 IMPRESSION: 1. Dental and periodontal disease 2. No facial fracture is identified. Head CT 11/03/21 14:55 IMPRESSION: Scalp hematoma. No acute intracranial finding. Laboratory Results WBC 17.8 10^3/uL (4.0-10.0) H 11/03/21 15:24 RBC 4.33 10^6/uL (4.1-5.3) 11/03/21 15:24 Hgb 11.5 g/dL (11.5-15.3) 11/03/21 15:24 Hct 35.4 % (37.0-47.0) L 11/03/21 15: MCV 81.8 fl (81-99) 11/03/21 15: MCH 26.6 pg (28.0-34.0) L 11/03/21 15: MCHC 32.5 g/dL (30.0-36.0) 11/03/21 15: RDW 15.4 % (12.1-15.1) H 11/03/21 15: Plt Count 352 10^3/cmm (130-400) 11/03/21: MPV 8.5 fL (7.4-10.4) 11/03/21 15:24 Neut % (Auto) 93.3 % 11/03/21 15: Lymph % (Auto) 3.2 % 11/03/21 15: [place] % (Auto) 2.6 % 11/03/21 15: Eos % (Auto) 0.0 % 11/03/21 15:24 Baso % (Auto) 0.3 % 11/03/21 15:24 Neut # (Auto) 16.64 10^3/uL (1.8-7.7) H 11/03/21: Lymph # (Auto) 0.6 10^3/uL (0.8-4.8) L 11/03/21 15:24 [place] # (Auto) 0.5 10^3/uL (0.2-0.9) 11/03/21 15:24 Eos # (Auto) 0.0 10^3/uL (0.0-0.8) 11/03/21 15:24 Baso # (Auto) 0.1 10^3/uL (0.0-0.1) 11/03/21 15:24 Nucleated RBC % (auto) 0 % 11/03/21 15:24 Nucleated RBCs # 0.0 /100WBC 11/03/21 15:24 Specimen Type Arterial 11/03/21 18:35 Sample Site Brachial, left 11/03/21 18:35 ABG pH 7.46 (7.35-7.45) H 11/03/21 18:35 ABG pCO2 27.6 mmHg (35-45) L 11/03/21 18:35 ABG pO2 94.8 mmHg (80.0-100.0) 11/03/21 18:35 ABG HCO3 19.8 mmol/L (22-26) L 11/03/21 18:35 ABG O2 Saturation 98.2 11/03/21 18:35 ABG Base Excess -3.0 mmol/L (-2.0-2.0) L 11/03/21 18:35 Steve Test Pos 11/03/21 18:35 A-a O2 Gradient 2.3 mmHg (5-10) L 11/03/21 18:35 Hematocrit 32.5 % (37-47) L 11/03/21 18:35 Hgb O2 Saturation 96.3 % (95-100) 11/03/21 18:35 Carboxyhemoglobin 1.1 %THgb (0.4-20.1) 11/03/21 18:35 Methemoglobin 0.9 % (0.4-1.5) 11/03/21 18:35 Total Hemoglobin 10.6 g/dL (12-16) L 11/03/21 18:35 Sodium 144.0 mmol/L (131-143) H 11/03/21 18:35 Potassium 3.8 mmol/L (3.5-5.0) 11/03/21 18:35 Glucose 390.0 mg/dL (70-115) H 11/03/21 18:35 Ionized Calcium 1.2 mmol/L (1.1-1.4) 11/03/21 18:35 O2 Delivery Device Room air 11/03/21 18:35 FiO2 21.0 % 11/03/21 18:35 Power Screwdriver Operator ID Cak 11/03/21 18:35 Sodium 138 mmol/L (136-145) 11/03/21 15:24 Potassium 3.7 mmol/L (3.5-5.1) 11/03/21 15:24 Chloride 96 mmol/L (98-107) L 11/03/21 15:24 Carbon Dioxide 21 mmol/L (22-29) L 11/03/21 15:24 Anion Gap 24.7 (5-19) H 11/03/21 15:24 BUN 21 mg/dL (6-20) H 11/03/21 15:24 Creatinine 1.5 mg/dL (0.5-0.9) H 11/03/21 15:24 GFR Calculation 37.9 mL/min (90-130) L 11/03/21 15:24 Glucose 436 mg/dL (65-115) H 11/03/21 15:24 POC Glucose 421 mg/dL (70-110) H 11/03/21 15:50 Calculated Osmolality 308 mOsm/kg (285-295) H 11/03/21 15:24 Calcium 10.5 mg/dL (8.5-10.5) 11/03/21 15:24 Total Bilirubin 0.5 mg/dL (0.15-1.2) 11/03/21 15:24 AST 28 U/L (0-32) 11/03/21 15:24 ALT 70 U/L (0-33) H 11/03/21 15:24 Alkaline Phosphatase 212 IU/L (35-105) H 11/03/21 15:24 Total Protein 8.3 g/dL (6.6-8.7) 11/03/21 15:24 Albumin 4.8 g/dL (3.5-5.2) 11/03/21 15:24 Globulin 3.5 g/dL (1.3-4.6) 11/03/21 15:24 Lipase 26 U/L (13-60) 11/03/21 15:24 TSH 0.75 uIU/mL (0.27-4.20) 11/03/21 15:24 Free T4 1.14 ng/dL (0.82-1.77) 11/03/21 15:24 HCG, Qual Negative (Negative) 11/03/21 15:50 Urine Color Yellow (Yellow) 11/03/21 17:10 Urine Appearance Sl cloudy (CLEAR) A 11/03/21 17:10 Urine pH 8 (5-7) H 11/03/21 17:10 Ur Specific [place] 1.010 (1.005-1.030) 11/03/21 17:10 Urine Protein 3+ (Negative) H 11/03/21 17:10 Urine Glucose (UA) 4+ (Normal) H 11/03/21 17:10 Urine Ketones 1+ (Negative) H 11/03/21 17:10 Urine Blood 3+ (Negative) H 11/03/21 17:10 Urine Nitrate Negative (Negative) 11/03/21 17:10 Urine Bilirubin Neg (Negative) 11/03/21 17:10 Prot Sulfosalicylic Acd Positive (Negative) 11/03/21 17:10 Urine Urobilinogen Norm mg/dL (Negative) 11/03/21 17:10 Ur Leukocyte Esterase Negative (Negative) 11/03/21 17:10 Urine RBC 10-15 /hpf (0-2) H 11/03/21 17:10 Urine WBC 0-4 /hpf (0-5) H 11/03/21 17:10 Ur Squamous Epith Cells 15-25 /hpf (0-5) H 11/03/21 17:10 Amorphous Sediment Not Reportable 11/03/21 17:10 Urine Bacteria 4+ /hpf (NONE) H 11/03/21 17:10 Salicylates < 0.3 mg/dL (3-10) L 11/03/21 15:24 Urine Opiates Screen Negative ng/mL (Negative) 11/03/21 17:10 Acetaminophen < 5.0 ug/mL (10-30) L 11/03/21 15:24 Ur Barbiturates Screen Negative ng/mL (Negative) 11/03/21 17:10 Ur Phencyclidine Scrn Negative ng/mL (Negative) 11/03/21 17:10 Ur Amphetamines Screen Negative ng/mL (Negative) 11/03/21 17:10 U Benzodiazepines Scrn Positive ng/mL (Negative) H 11/03/21 17:10 Urine Cocaine Screen Negative ng/mL (Negative) 11/03/21 17:10 U Marijuana (THC) Screen Positive ng/mL (Negative) H 11/03/21 17:10 Serum Ketones Negative (Negative) 11/03/21 15:50 Imaging Data Other Imaging: Radiologist's impression: [address] [address] [address] Scan Report Signed Patient: Cherrie Solomon Unit #: [id number] : 1980 Age/Sex: 41 / F ADM Date: 11/03/21 Loc: ER Room/Bed: Attending Dr: Ordering Provider/Ordering MD: John Sams MD Date of Service: 11/03/21 Procedure(s): CT head wo con* [id number] Accession Number(s): [id number] Report Number: [id number] PROCEDURE INFORMATION: Exam: CT Head Without Contrast Exam date and time: 11/03/2021 4:21 PM Age: 41 years old Clinical indication: Injury or trauma; Blunt trauma (contusions or hematomas); Consciousness not specified; Patient HX: PT was banging her head against a wall; Additional info: Fall TECHNIQUE: Imaging protocol: Computed tomography of the head without contrast. Radiation optimization: All CT scans at this facility use at least one of these dose optimization techniques: automated exposure control; mA and/or kV adjustment per patient size (includes targeted exams where dose is matched to clinical indication); or iterative reconstruction. COMPARISON: CT head wo con* [id number] 10/21/2021 4:21 PM RADIATION DOSE METRICS: Total DLP (mGy-cm): 912.25 FINDINGS: Brain: Normal. No hemorrhage. Unremarkable white matter. No mass effect. Cerebral ventricles: No ventriculomegaly. Paranasal sinuses: Visualized sinuses are unremarkable. No fluid levels. Mastoid air cells: Visualized mastoid air cells are well aerated. Bones/joints: Unremarkable. No acute fracture. Soft tissues: There is swelling of the right frontal scalp with a new area of increased density consistent with some scalp contusion or hematoma increased compared with 10/21/2021. CT/CT head wo con* [id number] IMPRESSION: Scalp hematoma. No acute intracranial finding. ? Dictated By: Jeffry Evans Signed By: Jeffry Evans Signed Date/Time: 11/03/21 1711 DD/ [address] [address] [address] Scan Report Signed Patient: Cherrie Solomon Unit #: [id number] : 1980 Age/Sex: 41 / F ADM Date: 11/03/21 Loc: ER Room/Bed: Attending Dr: Ordering Provider/Ordering MD: John Sams MD Date of Service: 11/03/21 Procedure(s): CT facial bones wo con* [id number] Accession Number(s): [id number] Report Number: [id number] PROCEDURE INFORMATION: Exam: CT Maxillofacial Without Contrast Exam date and time: 11/03/2021 4:22 PM Age: 41 years old Clinical indication: Injury or trauma; Blunt trauma (contusions or hematomas); Forehead and nose; Patient HX: PT was banging her head against a wall; Additional info: Head pain TECHNIQUE: Imaging protocol: Computed tomography images of the face without contrast. Radiation optimization: All CT scans at this facility use at least one of these dose optimization techniques: automated exposure control; mA and/or kV adjustment per patient size (includes targeted exams where dose is matched to clinical indication); or iterative reconstruction. COMPARISON: CT head wo con* [id number] 11/03/2021 4:21 PM RADIATION DOSE METRICS: Total DLP (mGy-cm): 703.9 FINDINGS: Orbital cavities: Orbits are normal. Globes are unremarkable. Bones/joints: There is nasal septal deviation towards the left. No facial fracture is identified. Paranasal sinuses: Paranasal sinuses are normally aerated and clear. Soft tissues: There is soft tissue contusion in the right side of the face and along the lateral aspect of the left orbit and frontal scalp swelling and hematoma. Dental: There is dental caries involving multiple teeth. There are possible periapical abscesses involving an upper left incisor tooth and multiple lower canine and bicuspid teeth. CT/CT facial bones wo con* [id number] IMPRESSION: 1. Dental and periodontal disease 2. No facial fracture is identified. ? Dictated By: Jeffry Evans Signed By: Jeffry Evans Signed Date/Time: 11/03/21 1715 DD/ [address] [address] [address] Scan Report Signed Patient: Cherrie Solomon Unit #: [id number] : 1980 Age/Sex: 41 / F ADM Date: 11/03/21 Loc: ER Room/Bed: Attending Dr: Ordering Provider/Ordering MD: John Sams MD Date of Service: 11/03/21 Procedure(s): CT abdomen pelvis w con* [id number] Accession Number(s): [id number] Report Number: [id number] PROCEDURE INFORMATION: Exam: CT Abdomen And Pelvis With Contrast Exam date and time: 11/03/2021 4:26 PM Age: 41 years old Clinical indication: Nausea and vomiting; Patient HX: N/v R flank pain; Additional info: R sided flank pain TECHNIQUE: Imaging protocol: Computed tomography of the abdomen and pelvis with contrast. Radiation optimization: All CT scans at this facility use at least one of these dose optimization techniques: automated exposure control; mA and/or kV adjustment per patient size (includes targeted exams where dose is matched to clinical indication); or iterative reconstruction. Contrast material: OMNI 300; Contrast volume: 95 ml; Contrast route: INTRAVENOUS (IV);? COMPARISON: CT abdomen pelvis w con* [id number] 10/21/2021 4:25 PM RADIATION DOSE METRICS: Total DLP (mGy-cm): 1815.07 FINDINGS: Limitations: Study somewhat limited due to streak artifact created by the patient being scanned with the arms at the sides. Liver: There is no focal abnormality within the liver. Gallbladder and bile ducts: There has been a cholecystectomy. Pancreas: The pancreas is normal. Spleen: The spleen is normal. Adrenal glands: The adrenal glands are normal. Kidneys and ureters: The right kidney is normal. Benign-appearing left renal cyst not significantly changed. There is no evidence of hydronephrosis. There is no evidence of renal or ureteral calcifications. Stomach and bowel: There is no evidence of colitis/diverticulitis. Appendix: Not identified Intraperitoneal space: There is no evidence of free intraperitoneal fluid. There is no evidence of free intraperitoneal fluid. Vasculature: The aorta demonstrates mild atherosclerotic calcification. There is no evidence of an abdominal aortic aneurysm. Lymph nodes: There is no evidence of lymphadenopathy. Urinary bladder: Urinary bladder is distended with a volume of approximately 800 cc. Urinary bladder is otherwise unremarkable. Reproductive: Unremarkable as visualized. Bones/joints: There is mild compression deformity superior endplate of T12. This is not changed from previous. Soft tissues: There is diastasis of the rectus muscles with mild umbilical hernia containing only fat. CT/CT abdomen pelvis w con* [id number] IMPRESSION: No acute findings. No significant change compared with 10/21/2021 ? Dictated By: Jeffry Evans Signed By: Jeffry Evans Signed Date/Time: 11/03/21 1724 DD/ 1626 Discharge Plan Discharge Patient Disposition: Admitted As Inpatient Admit Provider: Kris Thompson Clinical Impression: Suicide ideation, Acute flank pain Condition: Stable 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 Code ED Hse Specialist for Chg Fwd Exam Comprehensive Time Spent (min) 20 Face to Face Encounter Date Performed: 11/03/21 Face to Face: Restrn/Seclusion Events leading up to initiation: Demonstrating self-destructive behavior (cutting, hitting estrada etc.) Evaluation of patient's immediate situation: Signs of physical distress Patient reaction since intervention applied: De-escalation/no displays of violent/destructive behavior Recent labs reviewed: Yes Review of medications: Yes Patient's current medical/behavioral condition: New concerns (describe) Need for restraint or seclusion is: No longer present Attending notified: Yes
--- NOTE | 2021-11-03 15:20 | PC.PHAR ---
PT UNABLE TO VERIFY- VERIFIED BY EXTERNAL MED HISTORY AND PHARMACY
[2021-11-03 15:31] LABS: Basophils # 0.1 10^3/uL (0.0-0.1); Basophils % 0.3 %; Hematocrit 35.4 % (37.0-47.0); Hemoglobin 11.5 g/dL (11.5-15.3); Lymphocytes # 0.6 10^3/uL (0.8-4.8); Lymphocytes % 3.2 %; Mean Corpuscular HGB Conc 32.5 g/dL (30.0-36.0); Mean Corpuscular Hemoglobin 26.6 pg (28.0-34.0); Mean Corpuscular Volume 81.8 fl (81-99); Mean Platelet Volume 8.5 fL (7.4-10.4); Monocytes # 0.5 10^3/uL (0.2-0.9); Monocytes % 2.6 %; Neutrophils # 16.64 10^3/uL (1.8-7.7); Neutrophils % 93.3 %; Nucleated Red Blood Cells % 0 %; Platelet Count 352 10^3/cmm (130-400); Red Blood Count 4.33 10^6/uL (4.1-5.3); Red Cell Distribution Width 15.4 % (12.1-15.1); White Blood Count 17.8 10^3/uL (4.0-10.0)
--- NOTE | 2021-11-03 15:44 | PC.NURSE ---
Pt placed in physical restraint bed due to self harm at 1535. pt was found by staff to be hitting her head on the sink in her room.
[2021-11-03] MEDS: haloperidol inj 5 mg/mL INJ 1 mL IM (15:50)
[2021-11-03] MEDS: diphenhydrAMINE 50 mg/mL SDV 1mL IVP (15:50)
[2021-11-03] MEDS: LORazepam 2 mg/mL INJ 1 mL IVP (15:50)
[2021-11-03 15:54] LABS: Glucose Point of Care 421 mg/dL (70-110)
[2021-11-03] MEDS: sodium chloride 0.9% 1,000 ML 999 ML IV ×2 (15:59→18:54)
[2021-11-03 16:04] LABS: Alanine Aminotransferase 70 U/L (0-33); Albumin Level 4.8 g/dL (3.5-5.2); Alkaline Phosphatase 212 IU/L (35-105); Aspartate Amino Transferase 28 U/L (0-32); Blood Urea Nitrogen 21 mg/dL (6-20); Calcium 10.5 mg/dL (8.5-10.5); Carbon Dioxide 21 mmol/L (22-29); Chloride 96 mmol/L (98-107); Free T4 Free Thyroxine 1.14 ng/dL (0.82-1.77); Globulin 3.5 g/dL (1.3-4.6); Glomerular Filtration Rate 37.9 mL/min (90-130); Glucose 436 mg/dL (65-115); Lipase 26 U/L (13-60); Osmolality Calculated 308 mOsm/kg (285-295); Sodium 138 mmol/L (136-145); Thyroid Stimulating Hormone 0.75 uIU/mL (0.27-4.20); Total Bilirubin 0.5 mg/dL (0.15-1.2); Total Protein 8.3 g/dL (6.6-8.7)
--- NOTE | 2021-11-03 16:04 | PC.NURSE ---
Pt placed in restraints due to self-harm
[2021-11-03 16:12] LABS: Acetaminophen < 5.0 ug/mL (10-30); Anion Gap 24.7 (5-19); Potassium 3.7 mmol/L (3.5-5.1); Salicylate < 0.3 mg/dL (3-10)
[2021-11-03] MEDS: iohexol 300 mg/mL 100 mL Btl IV (16:27)
--- NOTE | 2021-11-03 16:34 | PC.NURSE ---
Physical restraints removed. Chemical restraint in place after order by Dr. Sams
[2021-11-03 17:07] LABS: HCG, Serum Qual Negative (Negative)
[2021-11-03 17:56] VITALS: PULSE 120; RESP 22; O2SAT 97
--- NOTE | 2021-11-03 17:57 | PC.NURSE ---
At approximately 1645 pt again attempted to put her fingers down her throat and make herself vomit. Pt then proceeded to punch herself in her forehead. Pt was placed back in restraints at 1646. Dr Sams notified and placed orders for ketamine. Ketamine was administered with Dr in room monitoring situation. When pt was sedated, physical restraints removed at approx 1705. At 1725 pt was again attempting to place her fingers down her throat and was placed in physical restraints after attempts to talk to her to lie down failed. Additional orders received from Dr. Sams. Pt currently under one on one with RN present and sitter. Continuous cardiac, BP, and spo2 monitoring in place. CMS checks completed on all limbs with CMS intact. Pt currently in supine position.
[2021-11-03] MEDS: labetalol 5 mg/mL SDV 20mL 20 MG IVP (18:27)
[2021-11-03 18:46] LABS: ABG PCO2 27.6 mmHg (35-45); ABG PH Result 7.46 (7.35-7.45); Alveolar-Arterial Oxygen Gradi 2.3 mmHg (5-10); Arterial Blood Gas Hematocrit 32.5 % (37-47); Blood Gas Allen Test Pos; Blood Gas Operator Identificat CAK; Blood Gas Sample Site Brachial, left; Blood Gas Sample Type Arterial; Carboxyhemoglobin 1.1 %THgb (0.4-20.1); HCO3 ABG 19.8 mmol/L (22-26); HGB O2 Sat 96.3 % (95-100); Ionized Calcium Level - ABG 1.2 mmol/L (1.1-1.4); Methemoglobin 0.9 % (0.4-1.5); Oxygen Device ROOM AIR; Oxygen Saturation ABG 98.2; PO2 ABG 94.8 mmHg (80.0-100.0); Potassium Level - ABG 3.8 mmol/L (3.5-5.0); Total Hemoglobin 10.6 g/dL (12-16)
[2021-11-03 18:47] LABS: Add Urine Culture? No; Add Urine Microscopic? YES; Bacteria Urine 4+ /hpf; Bilirubin Urine Neg (Negative); Blood Urine 3+ (Negative); Glucose Urine UA 4+ (Normal); Ketones Urine 1+ (Negative); Leukocyte Esterase Urine Negative (Negative); Nitrate Urine Negative (Negative); Protein Urine 3+ (Negative); Squamous Epithelial Cell Urine 15-25 /hpf (0-5); Sulfosalicylic Acid Urine Positive (Negative); Urine Color Yellow (Yellow); Urobilinogen Urine Norm (Negative); WBC Urine 0-4 /hpf (0-5); pH Urine 8 (5-7)
[2021-11-03 18:48] LABS: Amphetamines Screen Urine Negative (Negative); Barbiturates Screen Urine Negative (Negative); Benzodiazepines Screen Urine Positive (Negative); Cocaine Screen Urine Negative (Negative); Opiate Screen Urine Negative (Negative); PCP Screen Urine Negative (Negative); THC Screen Urine Positive (Negative)
[2021-11-03] MEDS: ondansetron 2 mg/ML SDV 2 mL 4 MG IVP ×2 (18:53→21:40)
[2021-11-03 18:56] LABS: Ketone (Acetest) Serum Negative (Negative)
[2021-11-03 19:04] VITALS: BP 193/124; PULSE 111; RESP 22
[2021-11-03 20:00] VITALS: BP 169/90; PULSE 119; RESP 13; O2SAT 94
[2021-11-03 21:18] VITALS: RESP 15; O2SAT 98
[2021-11-03] MEDS: hyDRALAzine 20 mg/mL INJ 1 mL IVP (21:18)
[2021-11-03] MEDS: HYDROmorphone 1 mg/mL INJ 1 mL IVP (21:18)
[2021-11-03 22:14] VITALS: BP 153/95; PULSE 122; RESP 21; O2SAT 94
[2021-11-04] VITALS (7 sets, daily range): BP systolic 115–174; BP diastolic 62–106; PULSE 93–134; RESP 12–20; TEMP 36.6–37; O2SAT 92–99
[2021-11-04] MEDS: LORazepam 2 mg/mL INJ 1 mL IVP (00:08)
[2021-11-04] MEDS: quetiapine 100 mg Tablet 200 MG PO ×2 (01:11→20:31)
[2021-11-04] MEDS: ropinirole 1 mg Tablet PO ×2 (01:11→20:31)
[2021-11-04] MEDS: cyclobenzaprine 10 mg Tablet PO (01:11)
[2021-11-04] MEDS: oxyCODONE-APAP 10-325 mg Tablet 1 TAB PO ×3 (01:16→20:31)
[2021-11-04] MEDS: OLANZapine 5 mg ODT PO ×3 (01:52→17:37)
--- NOTE | 2021-11-04 01:55 | PC.NURSE ---
0155- I was called to [facility]. She was making herself vomit by sticking her fingers down her throat. She was asking for something for anxiety. I explained to her that she would not get anything until she quit making herself vomit. She was given Zyprexa zydis.
--- NOTE | 2021-11-04 02:03 | PC.ADMIT ---
Addendum entered by Lelia Alexander RN 11/04/21 05:15: Patient has swelling to bilateral hands and wrists, swelling and bruising to face with laceration to forehead from banging head, scratches to anterior upper leg, scabbing to right achilles from previous blister and redness to middle right toe. Original Note: [address] Admission Note: The patient,Cherrie Solomon,41 y/o, was given written information regarding hospital policies, unit procedures and contact persons. Patient's smoking status: current every day smoker. Vital Signs - 8 hr 11/03/21 19:04 11/03/21 20:00 11/03/21 21:18 Pulse Rate 111 H 119 H Respiratory Rate 22 H 13 15 Blood Pressure 193/124 169/90 Pulse Oximetry 94 98 11/03/21 22:14 11/04/21 00:03 Pulse Rate 122 H 120 H Respiratory Rate 21 H 12 Blood Pressure 153/95 148/106 Pulse Oximetry 94 92 Patient came in to ER due to right flank pain that is uncontrollable and wanting to . Patient states pain has become uncontrollable. She states that she has been receiving her meds as perscribed at home regularly and her and daughter help her but pain continues to get uncontrollable and gives her panic attacks to the point she wants to . Patient came to ER and has been in hitting self and making herself throw up and yelling, patient had to be placed in restraints multiple times. When patient arrived to unit she smelled like urine and was assisted with shower, given sandwich and drinks as well as scheduled night medications and pain medication. Patient continued to complain of pain 10/10 and requested additional medication. Educated patient on medications and how often they are scheduled for. Offered patient additional comfort measures, positioning, and redirection. Patient became nauseous and was observed making herself throw up again. 1:1 sitter placed at bedside. Patient c/o of anxiety 10/10 and was given PRN Zydis.
[2021-11-04] MEDS: ondansetron 4 MG Tablet PO (03:30)
[2021-11-04] MEDS: trazodone 50 mg Tablet PO (03:30)
[2021-11-04] MEDS: insulin glargine 100 units/1 mL 40 UNIT SUBCUT ×2 (04:17→21:00)
[2021-11-04] MEDS: haloperidol inj 5 mg/mL INJ 1 mL IM (04:45)
[2021-11-04] MEDS: LORazepam 2 mg/mL INJ 1 mL IM ×2 (04:47→06:48)
[2021-11-04] MEDS: diphenhydrAMINE 50 mg/mL SDV 1mL IM (04:48)
--- NOTE | 2021-11-04 07:37 | W.PM.NPUH&PS ---
Providers/Chief Complaint Admitting Physician: Kris Thompson MD Primary Care Provider: Angelic Martinez MD Chief Complaint: SUICIDAL IDEATIONS HPI NPU History of Present Illness Cherrie Solomon is a 41 year old female admitted through our emergency department with the following report: HPI: [41]yo patient w/ hx of SI/self-harm behavior BIBA for significant r side flank pain and desire for suicide.? Patient tells me that for the last day she has sustained significant right-sided flank pain.? Patient has history of renal colic.? Patient says that she can no longer take the pain started hitting her head against the wall. on arrival, the patient is AAOx3 and cooperative with my evaluation. No focal complaints of chest pain, shortness of breath, palpitations, N/V, focal GI/ complaints. Currently reports SI. No complaints of hallucinations. She was admitted to the neuropsychiatry unit for definitive treatment of these issues. She says that she has been doing fairly well up until yesterday. Her pain increased yesterday. She was good.. She said that she has been trying to cut down some on her pain medications but had plenty. She denies anything bad happening. She denies any extra stress or increased activity. She has been frequently putting her finger down her throat making herself throw up. He says that is to divert her thoughts from the pain. She says that her pain currently is about 8. She was given some oxycodone at 1:30 AM but they say that she made herself throw up shortly afterwards and probably did not get much effect.HPI: [41]yo patient w/ hx of SI/self-harm behavior BIBA for significant r side flank pain and desire for suicide.? Patient tells me that for the last day she has sustained significant right-sided flank pain.? Patient has history of renal colic.? Patient says that she can no longer take the pain started hitting her head against the wall. on arrival, the patient is AAOx3 and cooperative with my evaluation. No focal complaints of chest pain, shortness of breath, palpitations, N/V, focal GI/ complaints. Currently reports SI. No complaints of hallucinations. Below is the discharge summary from her most recent admission: Ms Solomon is a 41-year-old lady with complex past medical history primarily complicated by psychiatric disorder who also has hypertension, obesity, medication compliance, diabetes who presents emergency department for various concerns.? She called an ambulance for mental health evaluation which she reports is due to abdominal pain.? She has a longstanding history of gastroparesis but reports that this is worse.? She has generalized abdominal pain which she has difficulty characterizing.? It got to the point where she was banging her head against objects and has a laceration/injury associated with this.? The patient arrived in restraints by EMS.? She does not report any other significant changes in health, exacerbating, or alleviating factors.? She has had similar episodes in the past.? She reports compliance with her medications. Onset (ago): unknown Duration: constant History of same: Yes Exacerbating factors: other Treatments prior to arrival: physical restraints If self harm: has acted on plan She was admitted to the neuropsychiatric unit for definitive treatment of those issues.? She presented this morning reporting that she was having significant nausea and I met her at the bedside with a full basin of brownish emesis.? She started initially reporting that she had run out of some of her medication including her pain medication, once again we divided this reflected a logistical situation where she had not made the appointment.? She once again is endorsing suicidal thoughts secondary to not having access to her medication and by being in that situation being in so much pain.? Her blood sugars were way out of whack and took significant work by the emergency department to get her medically cleared for the unit but the challenge was her behavioral pattern once again with the police and the emergency department with head-banging, forced emesis at times with a bloody tammy on her forehead from the fresh head-banging.? We discussed the critical need for us to find some kind of psychosocial setting and or safety net for her so that we were having inpatient hospitalizations that may reflect feeling suicidal and being are within but also reflect doing things the same way and getting the same result.? She denies any difference in her situation from the last hospitalization, living in the same place having the same helpers etc.? She can give no good reason why she had not made it to her appointment for pain management initially saying that she had to go to a walk-in but we had given her appointment prior to leaving.? There have been no substantive changes since her discharge summary 09/25/2021. Hospital Course Hospital Course She slowly acclimated to the individual, group and milieu therapies provided.? She was restarted on her outpatient medications and responded well.? She tolerated these doses and showed steady improvement during her stay.? ? She was able to contract for safety outside hospital prior to discharge.? During the hospitalization, patient had routine laboratory studies which were within normal limits except for few outliers.? Additionally there was a general medical evaluation which was also within normal limits and revealed no new acute processes. Discharge Summary: At the time of discharge, lethality was denied.? Documents were made to get her home health all available agencies have denied her and we are working on other avenues.? Mood and anxiety were well managed.? Patient endorsed a plan to follow-up with the aftercare recommendations of the treatment team.? Patient was evaluated and deemed to be absent credible lethality, and had achieved the maximum benefit from an inpatient hospitalization, so was discharged. Discharge Plan Discharge Patient Disposition: Home Condition: Stable Prescriptions: New ? cyclobenzaprine 10 mg Tablet ?? 10 mg PO BID PRN (Reason: Muscle Spasms) 30 Days Qty: 60 1RF ? oxycodone-acetaminophen 10-325 mg Tablet ?? 1 tab PO Q6H PRN (Reason: Moderate Pain) 10 Days Qty: 40 0RF Continued ? cyclobenzaprine 10 mg tablet ?? 10 mg PO BID PRN (Reason: MUSCLE SPASMS) 30 Days Qty: 60 2RF ? hydralazine 25 mg tablet ?? 25 mg PO QID PRN (Reason: high blood pressure) 30 Days Qty: 120 2RF ?? Rx Instructions: ?? take if BP >160/>100 ? pantoprazole 40 mg tablet,delayed release (DR/EC) ?? 40 mg PO DAILY 30 Days Qty: 30 2RF ? metoclopramide HCl 10 mg tablet ?? 10 mg PO Q6H PRN (Reason: nausea and vomiting) 30 Days Qty: 120 2RF ? gabapentin 600 mg tablet ?? 600 mg PO QID 30 Days Qty: 120 2RF ? Lantus Solostar U-100 Insulin 100 unit/mL (3 mL) insulin pen ?? 40 unit SUBCUT BEDTIME 30 Days Qty: 15 2RF ? (DME) Comfort EZ Pen Pandora 33 gauge x 1/4 needle ?? See Rx Instructions? .ROUTE .MEDSUPPLY Qty: 100 2RF ?? Rx Instructions: ?? As directed ? ([facility] [place] Blood Glucose Test? Strip ?? See Rx Instructions? .Route? Qty: 100 11RF ?? Rx Instructions: ?? Use with meter to test 3 times a day. ? spironolactone 25 mg Tablet ?? 25 mg PO DAILY 30 Days Qty: 30 1RF ? atorvastatin 40 mg tablet ?? 40 mg PO DAILY 30 Days Qty: 30 1RF ? ropinirole 1 mg tablet ?? 1 mg PO BEDTIME 30 Days Qty: 30 1RF ? sennosides-docusate sodium [Senna-S] 8.6-50 mg tablet ?? 1 tab-cap PO DAILY PRN (Reason: Constipation) 30 Days Qty: 30 1RF ? ondansetron 8 mg tablet,disintegrating ?? 8 mg PO Q12H PRN (Reason: nausea and vomiting) 30 Days Qty: 60 1RF ? tamsulosin 0.4 mg capsule ?? 0.4 mg PO DAILY 30 Days Qty: 30 1RF ? amlodipine 10 mg tablet ?? 10 mg PO DAILY 30 Days Qty: 30 1RF ? docusate sodium [Colace] 100 mg capsule ?? 100 mg PO BID 30 Days Qty: 60 1RF ? metoprolol succinate 25 mg tablet extended release 24 hr ?? 50 mg PO DAILY 30 Days Qty: 60 1RF ? ferrous sulfate 325 mg (65 mg iron) Tablet ?? 325 mg PO DAILY 0RF ? trazodone 50 mg Tablet ?? 50 mg PO BEDTIME PRN (Reason: Insomnia) 30 Days Qty: 30 1RF ? quetiapine 100 mg Tablet ?? 200 mg PO BEDTIME 30 Days Qty: 60 1RF ? lorazepam 0.5 mg Tablet ?? 0.5 mg PO BID 30 Days Qty: 60 0RF ? duloxetine 30 mg Capsule,Delayed Release(Dr/Ec) ?? 60 mg PO BID 30 Days Qty: 120 1RF Meds NPU Home Medications Medication Instructions Recorded Confirmed Last Taken Type gabapentin 600 mg tablet 600 mg PO QID 30 Days #120 tab 07/03/21 11/03/21 10/20/21 Rx insulin glargine 100 unit/mL (3 40 unit (0.4 mL) SUBCUT BEDTIME 30 07/03/21 11/03/21 10/20/21 Rx mL) subcutaneous pen (Lantus Days #15 ml Solostar U-100 Insulin) metoclopramide HCl 10 mg tablet 10 mg PO Q6H PRN 30 Days #120 tab 07/03/21 11/03/21 Unknown Rx pen needle, diabetic 33 gauge x #100 ea 07/03/21 11/03/21 Unknown Rx 1/4 (Comfort EZ Pen Pandora) blood sugar diagnostic (Blood #100 ea 07/12/21 11/03/21 Unknown Rx Glucose Test) amlodipine 10 mg tablet 10 mg PO DAILY 30 Days #30 tab 09/25/21 11/03/21 10/20/21 Rx atorvastatin 40 mg tablet 40 mg PO DAILY 30 Days #30 tab 09/25/21 11/03/21 10/20/21 Rx docusate sodium 100 mg capsule 100 mg PO BID 30 Days #60 cap 09/25/21 11/03/21 10/20/21 Rx (Colace) metoprolol succinate 25 mg 50 mg PO DAILY 30 Days #60 tab 09/25/21 11/03/21 10/20/21 Rx tablet,extended release 24 hr ropinirole 1 mg tablet 1 mg PO BEDTIME 30 Days #30 tab 09/25/21 11/03/21 10/20/21 Rx sennosides 8.6 mg-docusate sodium 1 tab-cap PO DAILY PRN 30 Days #30 09/25/21 11/03/21 10/20/21 Rx 50 mg tablet (Senna-S) tab spironolactone 25 mg tablet 25 mg PO DAILY 30 Days #30 tab 09/25/21 11/03/21 10/20/21 Rx tamsulosin 0.4 mg capsule 0.4 mg PO DAILY 30 Days #30 cap 09/25/21 11/03/21 10/20/21 Rx cyclobenzaprine 10 mg tablet 10 mg PO BID PRN 30 Days #60 tab 10/27/21 11/03/21 Unknown Rx oxycodone-acetaminophen 10 mg-325 1 tab PO Q6H PRN 10 Days #40 tab 10/27/21 11/03/21 Unknown Rx mg tablet quetiapine 100 mg tablet 200 mg PO BEDTIME 30 Days #60 tab 10/27/21 11/03/21 Unknown Rx trazodone 50 mg tablet 50 mg PO BEDTIME PRN 30 Days #30 10/27/21 11/03/21 Unknown Rx tab duloxetine 60 mg capsule,delayed 60 mg PO BID 11/03/21 11/03/21 Unknown History release ondansetron 8 mg disintegrating 8 mg PO BID 11/03/21 11/03/21 Unknown History tablet Allergies Allergy/AdvReac Type Severity Reaction Status Date / Time morphine Allergy ALGY-Difficulty Verified 11/03/21 15:20 Breathing PFSH NPU PFSH: Medical History Acute hyponatremia Acute renal failure Back pain C. 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 Nausea & vomiting Non-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 Psychiatric care PTSD (post-traumatic stress disorder) Self-harming behavior Self-harming behavior Suicidal ideation Suicidal ideation Toe infection UTI (urinary tract infection) Surgical History Below-knee amputation of left lower extremity H/O esophagogastroduodenoscopy (12/31/20) Bile reflux gastritis, grade B esophagitis H/O exploratory laparotomy x 3 History of amputation of right forefoot Hx of cholecystectomy Previous section x 3 S/P coronary artery stent placement x 1 S/P percutaneous endoscopic gastrostomy (PEG) tube placement Family History Unknown Diabetes extensive, type II Other CHF (congestive heart failure) Social History Smoking and tobacco status: current every day smoker Quit status (tobacco): has quit using tobacco Former quit date comment: 15 yrs ago Alcohol intake: former Former alcohol use details: 15 yrs ago Household members: spouse Marital status: Sexually active: Yes (1, ) Female Reproductive History: Spontaneous abortions: No Mental Status Exam MSE Comments: This is a 41-year-old female who appears somewhat older than her stated age.? She is being restrained by 2 nurses to keep her from putting her finger down her throat or hitting herself.? She is dressed in hospital scrubs and poorly groomed. psychomotor activity increased. Speech is at a regular rate and rhythm, normal volume, good articulation, not pressured. Alert, I did not ask questions about orientation. Attention and concentration she is focused on her pain and says only says that she wants to .. Memory is intact Mood is depressed.? Affect is dysphoric. Thought process is logical and goal-directed. Thought content:? Denies auditory and visual hallucinations.? No delusions or paranoia are noted.? She is constantly hitting herself if allowed and saying that she wants to . Fund of knowledge is average. Insight and judgment appear to be poor. Impulse control is very poor. Vitals/I&O/Wt Last Vital Signs Temp 97.8 F 11/04/21 06:00 Pulse 134 H 11/04/21 06:00 Resp 18 11/04/21 06:00 BP 174/83 11/04/21 00:33 Pulse Ox 99 11/04/21 06:00 11/03/21 11/04/21 11/04/21 22:59 06:59 14:59 Intake Total 1000 / 1000 Balance 1000 / 1000 Weight last 48 hrs Weight 86.183 kg Data NPU : 11/03/21 15:24 11/03/21 15:24 A&P Assessment and plan (1) Suicide ideation: Status: Acute (2) Acute flank pain: Status: Acute (3) Depression: Status: Acute Qualifiers: Depression Type: unspecified Qualified Code(s): F32.9 - Major depressive disorder, single episode, unspecified (4) Diabetic gastroparesis: Status: Chronic (5) Below-knee amputation of left lower extremity: Status: Acute (6) Insomnia: Status: Acute Qualifiers: Insomnia type: due to medical condition Qualified Code(s): G47.01 - Insomnia due to medical condition (7) ALEJANDRO (generalized anxiety disorder): Status: Acute (8) Diabetes mellitus type 1: Status: Chronic Qualifiers: Diabetes mellitus complication status: with hyperglycemia Qualified Code(s): E10.65 - Type 1 diabetes mellitus with hyperglycemia (9) GERD (gastroesophageal reflux disease): Status: Acute Qualifiers: Esophagitis presence: without esophagitis Qualified Code(s): K21.9 - Gastro-esophageal reflux disease without esophagitis (10) Amputation of toe of right foot: Status: Acute Plan This is a 41-year-old female with right flank pain possibly because of diabetic gastroparesis multiple admissions wanted to because of the pain Plan: 1.? Continue current medication.? We will give Ativan to calm her down. This is what has worked previously. 2.? Continue every 15 minute checks for safety. 3.? Encourage individual, group and milieu therapies. 4.? Encourage sober living treatment after discharge at the highest level of care to which she is willing to commit. 5.? We will monitor for safety for herself in the community prior to discharge. Involuntary Hold Information 96 Hour Hold: 96 Hour Involuntary Admission: No 96 Hour Hold Ending Date: 09/15/21 96 Hour Hold Ending Time: 00:01 Attestations NPU Medical Necessity Statement*: Inpatient hospitalization is medically necessary and the clinically appropriate intervention at this time. We will initiate medications and make changes as indicated. She will be in the hospital for over 2 midnights. 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
[2021-11-04] MEDS: atorvastatin 40 mg Tablet PO (08:03)
[2021-11-04] MEDS: gabapentin 300 mg Capsule 600 MG PO ×4 (08:03→20:31)
[2021-11-04] MEDS: amlodipine 10 mg Tablet PO (08:04)
[2021-11-04] MEDS: hyDROXYzine 25 mg Capsule 50 MG PO (08:04)
[2021-11-04] MEDS: ondansetron 4 MG Tablet 8 MG PO ×2 (08:04→17:22)
[2021-11-04] MEDS: metoprolol succinate ER (24 HR) 25 mg Tablet 50 MG PO (08:04)
[2021-11-04] MEDS: docusate sodium 100 mg Capsule PO ×2 (08:05→17:22)
[2021-11-04] MEDS: duloxetine 60 mg Capsule PO ×2 (08:05→17:22)
[2021-11-04] MEDS: spironolactone 25 mg Tablet PO (08:05)
[2021-11-04] MEDS: tamsulosin 0.4 mg Capsule PO (08:05)
[2021-11-04 09:08] LABS: Glucose Point of Care 394 mg/dL (70-110)
[2021-11-04 11:13] LABS: Glucose Point of Care 301 mg/dL (70-110)
[2021-11-04] MEDS: insulin lispro 100 unit/1 mL SUBCUT ×2 (12:32→21:00)
[2021-11-04 16:57] LABS: Glucose Point of Care 107 mg/dL (70-110)
--- NOTE | 2021-11-04 17:37 | PC.NURSE ---
zyprexa pt stated feeling of agitation, anxiety, and restlessness, requested PRN medication. zyprexa administered to pt, will continue to monitor.
[2021-11-04 20:34] LABS: Glucose Point of Care 218 mg/dL (70-110)
[2021-11-04] MEDS: lidocaine 5% Patch 1 PATCH TOPICAL (22:47)
[2021-11-05] MEDS: cyclobenzaprine 10 mg Tablet PO ×2 (00:37→13:54)
[2021-11-05] MEDS: acetaminophen 325 mg Tablet 650 MG PO (00:37)
[2021-11-05] MEDS: trazodone 50 mg Tablet PO (00:37)
--- NOTE | 2021-11-05 04:12 | PC.NURSE ---
2030- Oxycodone given for pain. It was effective. 36- Tylenol and flexeril given for pain. Trazodone given for sleep. they were effective.
[2021-11-05 06:07] LABS: Glucose Point of Care 91 mg/dL (70-110)
[2021-11-05 06:16] VITALS: RESP 16
[2021-11-05] MEDS: oxyCODONE-APAP 10-325 mg Tablet 1 TAB PO ×4 (06:16→20:24)
[2021-11-05] MEDS: duloxetine 60 mg Capsule PO ×2 (09:15→17:18)
[2021-11-05] MEDS: tamsulosin 0.4 mg Capsule PO (09:15)
[2021-11-05] MEDS: hyDROXYzine 25 mg Capsule 50 MG PO (09:15)
[2021-11-05] MEDS: ondansetron 4 MG Tablet 8 MG PO ×2 (09:15→17:18)
[2021-11-05] MEDS: spironolactone 25 mg Tablet PO (09:16)
[2021-11-05] MEDS: metoprolol succinate ER (24 HR) 25 mg Tablet 50 MG PO (09:16)
[2021-11-05] MEDS: lidocaine 5% Patch 1 PATCH TOPICAL (09:16)
[2021-11-05] MEDS: atorvastatin 40 mg Tablet PO (09:16)
[2021-11-05] MEDS: amlodipine 10 mg Tablet PO (09:16)
[2021-11-05] MEDS: docusate sodium 100 mg Capsule PO ×2 (09:16→17:18)
[2021-11-05] MEDS: gabapentin 300 mg Capsule 600 MG PO ×4 (09:16→20:20)
[2021-11-05] MEDS: OLANZapine 5 mg ODT PO (10:14)
--- NOTE | 2021-11-05 11:54 | PC.NURSE ---
1200 Blood Sugar Psych Aide took blood glucose. Band did not scan correctly and did not register to chart. Noon blood sugar was 110, no sliding scale needed at this time per orders.
[2021-11-05 12:34] VITALS: RESP 18
[2021-11-05] MEDS: haloperidol 5 mg Tablet PO (12:34)
--- NOTE | 2021-11-05 13:01 | W.PM.NPUPNS ---
Subjective NPU Subjective: she said that her pain is still higher than normal. She said it was a 7 but when it is doing well it is a 4. She ask about her routine Ativan 0.5 mg twice a day which was not started yesterday because she was getting fairly frequent IM doses. That will be restarted. Her other medications continued unchanged. Hopefully she will settle down soon. Mental Status Exam MSE Comments: This is a 41-year-old female who appears somewhat older than her stated age.? She is sitting on the side of her bed and appears to be in pain. Both of her eyes are black and she has a big scab on her forehead from self-inflicted injuries. She is dressed in hospital scrubs and poorly groomed. psychomotor activity increased. Speech is at a regular rate and rhythm, normal volume, good articulation, not pressured. Alert, I did not ask questions about orientation. Attention and concentration she is focused on her pain and says only says that she wants to .. Memory is intact Mood is depressed.? Affect is dysphoric. Thought process is logical and goal-directed. Thought content:? Denies auditory and visual hallucinations.? No delusions or paranoia are noted.? She denies suicidal ideation currently. No homicidal ideation. Fund of knowledge is average. Insight and judgment appear to be poor. Impulse control is very poor. Cognition: Patient Appearance: Disheveled/Poor Hygiene Level of Consciousness: Awake, Alert, Appropriate and Follows Commands Patient Cognition Impaired: Yes Ability to Follow Directions: Excellent Patient Orientation (long list): Person Comprehension Ability: No Impairment Hallucination Type: None Thought Process: Perseveration Affect: Affect Description: [place] and Calm Behavior: Patient Behavior: Appropriate, Cooperative and Withdrawn Speech Pattern: Appropriate and Clear Vitals/I&O/Wt Last Vital Signs Temp 98.4 F 11/04/21 20:29 Pulse 94 11/04/21 20:29 Resp 18 11/05/21 12:34 BP 115/62 11/04/21 20:29 Pulse Ox 97 11/04/21 20:29 Weight last 48 hrs Weight 86.183 kg Data NPU : 11/03/21 15:24 11/03/21 15:24 A&P Assessment and plan (1) Suicide ideation: Status: Acute (2) Acute flank pain: Status: Acute (3) Depression: Status: Acute Qualifiers: Depression Type: unspecified Qualified Code(s): F32.9 - Major depressive disorder, single episode, unspecified (4) Diabetic gastroparesis: Status: Chronic (5) Below-knee amputation of left lower extremity: Status: Acute (6) Insomnia: Status: Acute Qualifiers: Insomnia type: due to medical condition Qualified Code(s): G47.01 - Insomnia due to medical condition (7) ALEJANDRO (generalized anxiety disorder): Status: Acute (8) Diabetes mellitus type 1: Status: Chronic Qualifiers: Diabetes mellitus complication status: with hyperglycemia Qualified Code(s): E10.65 - Type 1 diabetes mellitus with hyperglycemia (9) GERD (gastroesophageal reflux disease): Status: Acute Qualifiers: Esophagitis presence: without esophagitis Qualified Code(s): K21.9 - Gastro-esophageal reflux disease without esophagitis (10) Amputation of toe of right foot: Status: Acute Plan This is a 41-year-old female with right flank pain possibly because of diabetic gastroparesis multiple admissions wanted to because of the pain Plan: 1.? Continue current medication.? Restart Ativan 0.5 mg twice a day 2.? Continue every 15 minute checks for safety. 3.? Encourage individual, group and milieu therapies. 4.? Encourage sober living treatment after discharge at the highest level of care to which she is willing to commit. 5.? We will monitor for safety for herself in the community prior to discharge. Involuntary Hold Information 96 Hour Hold: 96 Hour Involuntary Admission: No 96 Hour Hold Ending Date: 09/15/21 96 Hour Hold Ending Time: 00:01 Attestations NPU Medical Necessity Statement*: Inpatient hospitalization is medically necessary and the clinically appropriate intervention at this time. We will initiate medications and make changes as indicated. 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
--- NOTE | 2021-11-05 13:29 | PC.NURSE ---
PRN Medications Patient reports anxiety at 0900. At 0915 Vistaril given as ordered. At approximately 1000 AM continues to report increased anxiety. At 1015 Zydis given as ordered for anxiety. Reports minimal effectiveness. At 1230 patient ambulated with walker up to nurses station and reported continued increased anxiety. Patient requested Ativan. This RN reviewed PRN medications. Patient has Ativan IM PRN. Educated patient that she has haldol PO available that the Ativan IM is not appropriate at this time. Agreed to take Haldol 5 MG with 1300 medications, gabapentin with a PRN dose of Percocet 10MG for right sided flank pain, rating it 07/10. Patient reports relief from pain and decreased anxiety approximately one hour after she received medications.
[2021-11-05] MEDS: LORazepam 0.5 mg Tablet PO ×2 (13:50→17:18)
[2021-11-05] MEDS: ondansetron 4 MG Tablet PO (13:51)
[2021-11-05 14:00] VITALS: PULSE 123; RESP 20; TEMP 36.6; O2SAT 99
[2021-11-05] MEDS: LORazepam 2 mg/mL INJ 1 mL IM ×2 (14:10→14:56)
[2021-11-05 14:33] VITALS: RESP 28
[2021-11-05] MEDS: diphenhydrAMINE 50 mg/mL SDV 1mL IM (14:55)
[2021-11-05] MEDS: haloperidol inj 5 mg/mL INJ 1 mL IM (14:55)
--- NOTE | 2021-11-05 15:28 | PC.NURSE ---
RESTRAINT PT HAS C/O OF INCREASED PAIN. TOOK PRN MEDICATIONS AT 1230 TO LITTLE EFFECT. PT THEN TOOK SHOWER TO TRY TO ALLEVIATE PAIN WITHOUT SUCCESS. UPON LEAVING SHOWER, PT STATED THAT SHE VOMITED IN SHOWER AFTER TAKING MEDS. PT REQUESTING ADDITIONAL MEDS AT 1350. BEGAN TO HIT HEAD AT THAT TIME LIGHTLY ON NURSES STATION COUNTER. STAFF WAS ABLE TO REDIRECT THESES BEHAVIORS AT THAT TIME. GIVEN ZOFRAN AND FLEXERIL AT 1355 AND RETURNED TO BED. PT AGAIN BEGAN STRIKING SELF IN HEAD AND FACE. STAFF X2 REMAINED WITH PT AND ATTEMPTED REDIRECTION ADDITIONAL MEASURES TO ALLEVIATE PAIN. NOTIFIED AND GAVE NEW ORDER FOR ATIVAN 2 MG IM PER PT REQUEST. GIVEN WITHOUT ISSUE AT 1408. STAFF GAVE HOT COMPRESS, ASSISTED WITH REPOSITIONING, OFFERED WEDGE PILLOW, AND APPLIED PRESSURE TO FLANK, THOUGHT REDIRECTION AND DISTRACTION. NO MEASURES WERE EFFECTIVE. NOTIFIED AND GAVE NEW ORDER FOR ADDITIONAL OXYCODONE, GIVEN AT 1433. PT CONTINUED TO ATTEMPT TO HIT SELF, PINCHING OWN LEG, AND TRYING TO BITE SELF. SECURITY CALLED, PT EDUCATED ON NEED FOR RESTRAINT IF UNABLE TO STOP FROM SELF HARM. PT WOULD NOT STOP WITH SELF HARM AT THAT TIME AND WILLINGLY AGREED TO GO TO RESTRAINT ROOM. ASSISTED TO RESTRAINT BED WITH STAFF AND SECURITY. RESTRAINTS PLACED TO BILATERAL WRISTS. PT REQUESTED TO NOT RESTRAIN ONLY LEG THAT PT HAS D/T HAVING A SORE ON ANKLE. PT CONTRACTED TO NOT SELF HARM WITH THAT LEG. IN RESTRAINTS AT 1443. VS CHECKED- 148/96, PULSE 98, O2 SATS 95%. GAVE ORDER FOR ADDITIONAL MEDICATIONS AT THAT TIME OF HALDOL, ATIVAN AND BENADRYL. PT AGREEABLE TO TAKE MEDICATION INJ. ADMINISTERED WITHOUT ISSUE AT 1450 USING ASEPTIC TECHNIQUE. PT HAS OLD WOUND ON FOREHEAD THAT OPENED WHEN HITTING SELF. CLEANED WITH NS. STAFF REMAINED ONE TO ONE WITH PT. PT REPORTED FEELING SAFE AND IN CONTROL OF SELF HARM THOUGHTS. STATED THAT PAIN WAS DECREASING. REMOVED FROM RESTRAINTS AT 1508. VS 158/96, 95 PULSE, 95% O2. PT REMAINS ONE TO ONE AT THIS TIME. AND DIRECTOR NOTIFIED.
--- NOTE | 2021-11-05 15:37 | W.PM.NPUPNS ---
Subjective NPU Subjective: Pt very aggitated earlier biting and hitting self. required 2 B-52 injections. Mental Status Exam MSE Comments: now very calm. sleepy. Cognition: Patient Appearance: Disheveled/Poor Hygiene Level of Consciousness: Awake, Alert, Appropriate and Follows Commands Patient Cognition Impaired: Yes Ability to Follow Directions: Excellent Patient Orientation (long list): Person Comprehension Ability: No Impairment Hallucination Type: None Thought Process: Perseveration Affect: Affect Description: Rhea and Calm Behavior: Patient Behavior: Appropriate, Cooperative and Withdrawn Speech Pattern: Appropriate and Clear Vitals/I&O/Wt Last Vital Signs Temp 98 F 11/05/21 14:00 Pulse 123 H 11/05/21 14:00 Resp 28 H 11/05/21 14:33 BP 115/62 11/04/21 20:29 Pulse Ox 99 11/05/21 14:00 Data NPU : 11/03/21 15:24 11/03/21 15:24 A&P Assessment and plan (1) Suicide ideation: Status: Acute (2) Acute flank pain: Status: Acute (3) Depression: Status: Acute Qualifiers: Depression Type: unspecified Qualified Code(s): F32.9 - Major depressive disorder, single episode, unspecified (4) Diabetic gastroparesis: Status: Chronic (5) Below-knee amputation of left lower extremity: Status: Acute (6) Insomnia: Status: Acute Qualifiers: Insomnia type: due to medical condition Qualified Code(s): G47.01 - Insomnia due to medical condition (7) ALEJANDRO (generalized anxiety disorder): Status: Acute (8) Diabetes mellitus type 1: Status: Chronic Qualifiers: Diabetes mellitus complication status: with hyperglycemia Qualified Code(s): E10.65 - Type 1 diabetes mellitus with hyperglycemia (9) GERD (gastroesophageal reflux disease): Status: Acute Qualifiers: Esophagitis presence: without esophagitis Qualified Code(s): K21.9 - Gastro-esophageal reflux disease without esophagitis (10) Amputation of toe of right foot: Status: Acute Plan This is a 41-year-old female with right flank pain possibly because of diabetic gastroparesis multiple admissions wanted to because of the pain Plan: 1.? Continue current medication.? Restart Ativan 0.5 mg twice a day 2.? Continue every 15 minute checks for safety. 3.? Encourage individual, group and milieu therapies. 4.? Encourage sober living treatment after discharge at the highest level of care to which she is willing to commit. 5.? We will monitor for safety for herself in the community prior to discharge. Involuntary Hold Information 96 Hour Hold: 96 Hour Involuntary Admission: No 96 Hour Hold Ending Date: 09/15/21 96 Hour Hold Ending Time: 00:01 Attestations NPU Medical Necessity Statement*: certainly required restraints. now out of restraints and doing much better. 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 Code Acute Business Project Manager for g Fwd Diagnoses Suicide ideation R45.851 Acute flank pain R10.9 Depression F32.9 Depression Type: unspecified Diabetic gastroparesis E11.43; K31.84 Below-knee amputation of left lower extremity S88.112A Insomnia G47.01 Insomnia type: due to medical condition ALEJANDRO (generalized anxiety disorder) F41.1 Diabetes mellitus type 1 E10.65 Diabetes mellitus complication status: with hyperglycemia GERD (gastroesophageal reflux disease) K21.9 Esophagitis presence: without esophagitis Amputation of toe of right foot S98.131A
[2021-11-05 16:36] LABS: Glucose Point of Care 185 mg/dL (70-110)
[2021-11-05] MEDS: insulin lispro 100 unit/1 mL SUBCUT ×2 (17:16→21:23)
[2021-11-05] MEDS: calcium carbonate 500 mg Chew Tablet 1000 MG PO (18:46)
[2021-11-05] MEDS: metoclopramide 10 mg Tablet PO (18:52)
--- NOTE | 2021-11-05 18:54 | PC.NURSE ---
PRN Medication Complains of ongoing nausea with bouts of emesis. Emesis measures approximately 100 mls. Tums 1000MG PO given. Pharmacy brought up Reglan. This RN gave Reglan 10 mg PO as ordered for nausea and vomiting. Will pass on to oncoming shift for follow up.
[2021-11-05 20:06] VITALS: BP 157/84; PULSE 102; RESP 18; TEMP 37.1; O2SAT 96
[2021-11-05 20:24] VITALS: RESP 16
[2021-11-05] MEDS: ropinirole 1 mg Tablet PO (20:25)
[2021-11-05] MEDS: quetiapine 100 mg Tablet 200 MG PO (20:25)
[2021-11-05 21:01] LABS: Glucose Point of Care 215 mg/dL (70-110)
[2021-11-05] MEDS: insulin glargine 100 units/1 mL 40 UNIT SUBCUT (21:24)
[2021-11-06] MEDS: lidocaine 5% Patch 1 PATCH TOPICAL ×3 (00:10→21:01)
[2021-11-06 03:37] VITALS: RESP 16; O2SAT 95
[2021-11-06] MEDS: oxyCODONE-APAP 10-325 mg Tablet 1 TAB PO ×3 (03:37→16:11)
[2021-11-06] MEDS: metoclopramide 10 mg Tablet PO (03:38)
[2021-11-06 06:00] VITALS: RESP 19
[2021-11-06 06:18] LABS: Glucose Point of Care 96 mg/dL (70-110)
[2021-11-06] MEDS: gabapentin 300 mg Capsule 600 MG PO ×4 (08:17→21:00)
[2021-11-06] MEDS: LORazepam 0.5 mg Tablet PO ×2 (08:18→21:00)
[2021-11-06] MEDS: duloxetine 60 mg Capsule PO ×2 (08:18→21:00)
[2021-11-06] MEDS: atorvastatin 40 mg Tablet PO (08:18)
[2021-11-06] MEDS: tamsulosin 0.4 mg Capsule PO (08:18)
[2021-11-06] MEDS: spironolactone 25 mg Tablet PO (08:18)
[2021-11-06] MEDS: amlodipine 10 mg Tablet PO (08:19)
[2021-11-06] MEDS: metoprolol succinate ER (24 HR) 25 mg Tablet 50 MG PO (08:19)
[2021-11-06] MEDS: ondansetron 4 MG Tablet 8 MG PO ×2 (08:19→21:01)
[2021-11-06 08:44] LABS: Alanine Aminotransferase 28 U/L (0-33); Albumin Level 3.8 g/dL (3.5-5.2); Alkaline Phosphatase 129 IU/L (35-105); Aspartate Amino Transferase 18 U/L (0-32); Blood Urea Nitrogen 27 mg/dL (6-20); Calcium 9.7 mg/dL (8.5-10.5); Carbon Dioxide 22 mmol/L (22-29); Chloride 99 mmol/L (98-107); Globulin 2.3 g/dL (1.3-4.6); Glomerular Filtration Rate 28.9 mL/min (90-130); Glucose 84 mg/dL (65-115); Osmolality Calculated 276 mOsm/kg (285-295); Sodium 131 mmol/L (136-145); Total Bilirubin 0.2 mg/dL (0.15-1.2); Total Protein 6.1 g/dL (6.6-8.7)
[2021-11-06 08:45] LABS: Anion Gap 13.9 (5-19); Potassium 3.9 mmol/L (3.5-5.1)
[2021-11-06 09:35] VITALS: RESP 17
[2021-11-06] MEDS: docusate sodium 100 mg Capsule PO ×2 (09:53→21:00)
[2021-11-06 09:58] LABS: Basophils % 0.3 %; Eosinophils # 0.1 10^3/uL (0.0-0.8); Eosinophils % 1.4 %; Hematocrit 28.5 % (37.0-47.0); Hemoglobin 8.9 g/dL (11.5-15.3); Lymphocytes # 2.7 10^3/uL (0.8-4.8); Lymphocytes % 30.2 %; Mean Corpuscular HGB Conc 31.2 g/dL (30.0-36.0); Mean Corpuscular Hemoglobin 26.2 pg (28.0-34.0); Mean Corpuscular Volume 83.8 fl (81-99); Mean Platelet Volume 8.5 fL (7.4-10.4); Monocytes # 0.7 10^3/uL (0.2-0.9); Monocytes % 7.8 %; Neutrophils # 5.27 10^3/uL (1.8-7.7); Nucleated Red Blood Cells % 0 %; Platelet Count 313 10^3/cmm (130-400); Red Cell Distribution Width 15.6 % (12.1-15.1); White Blood Count 8.8 10^3/uL (4.0-10.0)
--- NOTE | 2021-11-06 11:01 | PC.NURSE ---
Patient with bilateral black discolored eyes in various stages of healing. Abrasion to middle forehead without drainage. Patient has generalized bruising on body observed. Left BKA skin WNL.
--- NOTE | 2021-11-06 11:08 | P.NPUPN_ITS ---
Subjective NPU Subjective: Please feel like she is doing better today. She had to be put into restraints and given to B-52 injections yesterday afternoon because she said the pain was so bad that she was trying to hurt herself. She says her pain is about back to normal now. She said that she threw up her pain medication yesterday. She denies trying to make herself throw up which she has done at times. Mental Status Exam MSE Comments: This is a 41-year- old fema le who appears batool ewhat older than h er stated age.? Sh e is sitting on th e side of her bed and does not appea r to be in much pa in. Both of her ey es are black and s he has a big scab on her forehead fr om self-inflicted injuries.? She is dressed in hospita l scrubs and poorl y groomed. psychom otor activity incr eased. Speech is a t a regular rate a nd rhythm, normal volume, good artic ulation, not press ured. Alert, I did not ask questions about orientation . Attention and co ncentration she is focused on her pa in and says only s ays that she wants to .. Memory i s intact Mood is d epressed.? Affect is mildly dysphori c. Thought process is logical and go al-directed. [facility] content:? Denie s auditory and vis ual hallucinations .? No delusions or paranoia are note d.? She denies paola cidal ideation cur rently.? No homici mary lou ideation. Fund of knowledge is a verage. Insight an d judgment appear to be poor. Impuls e control is very poor. Cognition: Patient Appearance: Disheveled/Poor Hygiene Level of Consciousness: Awake, Alert, Appropriate and Follows Commands Patient Cognition Impaired: Yes Ability to Follow Directions: Excellent Patient Orientation (long list): Person, Name, Birthday, Month and Year Comprehension Ability: No Impairment Hallucination Type: None Delusion Description: Not Present Thought Process: Perseveration Affect: Affect Description: Calm Behavior: Patient Behavior: Cooperative Speech Pattern: Clear Vitals/I&O/Wt Last Vital Signs Temp 98.8 F 11/05/21 20:06 Pulse 102 H 11/05/21 20:06 Resp 17 11/06/21 09:35 BP 157/84 03/20/22 20:06 Pulse Ox 95 11/06/21 03:37 Data NPU : 11/06/21 09:45 11/06/21 07:45 A&P Assessment and plan (1) Suicide ideation: Status: Acute (2) Acute flank pain: Status: Acute (3) Depression: Status: Acute Qualifiers: Depression Type: unspecified Qualified Code(s): F32.9 - Major depressive disorder, single episode, unspecified (4) Diabetic gastroparesis: Status: Chronic (5) Below-knee amputation of left lower extremity: Status: Acute (6) Insomnia: Status: Acute Qualifiers: Insomnia type: due to medical condition Qualified Code(s): G47.01 - In somnia due to medical condition (7) ALEJANDRO (generalized anxiety disorder): Status: Acute (8) Diabetes mellitus type 1: Status: Chronic Qualifiers: Diabetes mellitus complication status: with hyperglycemia Qualified C ode(s): E10.65 - Type 1 diabetes mellitus with hyperglycemia (9) GERD (gastroesophageal reflux disease): Status: Acute Qualifiers: Esophagitis presence: without esophagitis Qualified Code(s): K21.9 - Gastro-esophageal reflux disease without esophagitis (10) Amputation of toe of right foot: Status: Acute Plan This is a 41-year-old female with right flank pain possibly because of diabetic gastroparesis multiple admissions wanted to because of the pain Plan: 1.? Continue current medication.? Ativan 0.5 mg twice a day 2.? Continue every 15 minute checks for safety. 3.? Encourage individual, group and milieu therapies. 4.? Encourage sober living treatment after discharge at the highest level of care to which she is willing to commit. 5.? We will monitor for safety for herself in the community prior to discharge. Involuntary Hold Information 96 Hour Hold: 96 Hour Involuntary Admission: No 96 Hour Hold Ending Date: 09/15/21 96 Hour Hold Ending Time: 00:01 Attestations NPU Medical Necessity Statement*: Inpatient hospitalization is medically necessary and the clinically appropriate intervention at this time. We will initiate medications and make changes as indicated. 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
[2021-11-06 11:23] LABS: Glucose Point of Care 104 mg/dL (70-110)
--- NOTE | 2021-11-06 11:42 | NPU.GN ---
[facility] Topic:Mental Health discussion General Mood of Group: Cherrie did not attend group she wanted to sleep.
[2021-11-06] MEDS: hyDROXYzine 25 mg Capsule 50 MG PO ×2 (12:35→18:37)
--- NOTE | 2021-11-06 12:35 | PC.NURSE ---
prn VISTARIL 50 MG GIVEN PO PER PT C/O STATED ANXIETY
[2021-11-06 14:36] VITALS: BP 85/49; PULSE 69; RESP 17; TEMP 37.2; O2SAT 99
[2021-11-06 16:11] VITALS: RESP 16
[2021-11-06 16:25] LABS: Glucose Point of Care 214 mg/dL (70-110)
[2021-11-06] MEDS: insulin lispro 100 unit/1 mL SUBCUT ×2 (16:26→20:58)
[2021-11-06] MEDS: cyclobenzaprine 10 mg Tablet PO (18:37)
--- NOTE | 2021-11-06 18:38 | PC.NURSE ---
PRN FLEXERIL & VISTARIL FLEXERIL 10 MG GIVEN PO PER PT C/O MUSCLE SPASMS. VISTARIL 50 MG GIVEN PO PER PT C/O STATED ANXIETY. FLAT AFFECT, NO OUTWARD S/S OF ANXIETY NOTED CURRENTLY. WILL CONT TO MONITOR
[2021-11-06 20:43] LABS: Glucose Point of Care 240 mg/dL (70-110)
[2021-11-06] MEDS: insulin glargine 100 units/1 mL 40 UNIT SUBCUT (20:57)
[2021-11-06] MEDS: ropinirole 1 mg Tablet PO (21:00)
[2021-11-06] MEDS: quetiapine 100 mg Tablet 200 MG PO (21:01)
[2021-11-06 21:13] VITALS: BP 100/65; PULSE 77; RESP 18; TEMP 36.4; O2SAT 100
[2021-11-07 02:32] VITALS: RESP 18; O2SAT 96
[2021-11-07] MEDS: oxyCODONE-APAP 10-325 mg Tablet 1 TAB PO ×3 (02:32→14:53)
[2021-11-07] MEDS: OLANZapine 5 mg ODT PO (03:21)
[2021-11-07 06:00] VITALS: BP 115/76; PULSE 73; RESP 18; TEMP 36.5; O2SAT 95
[2021-11-07 06:56] LABS: Glucose Point of Care 109 mg/dL (70-110)
[2021-11-07] MEDS: cyclobenzaprine 10 mg Tablet PO ×2 (07:14→20:25)
[2021-11-07] MEDS: hyDROXYzine 25 mg Capsule 50 MG PO ×2 (07:14→15:59)
--- NOTE | 2021-11-07 08:08 | W.PM.NPUPNS ---
Subjective NPU Subjective: Her pain has been fairly well managed the last 2 days. She reports that it is a little bit worse at this time. 1 hour before her next dose of Percocet. Her hemoglobin and hematocrit have dropped since admission. She was on iron sulfate at the last admission and discharged on that. We are trying to set up home health services. Mental Status Exam MSE Comments: This is a 41-year- old fema le who appears batool ewhat older than h er stated age.? Sh e is sitting on th e side of her bed and does not appea r to be in much pa in. Both of her ey es are black and s he has a big scab on her forehead fr om self-inflicted injuries.? She is dressed in hospita l scrubs and poorl y groomed. psychom otor activity incr eased. Speech is a t a regular rate a nd rhythm, normal volume, good artic ulation, not press ured. Alert, I did not ask questions about orientation . Attention and co ncentration she is focused on her pa in and says only s ays that she wants to .. Memory i s intact Mood is d epressed.? Affect is mildly dysphori c. Thought process is logical and go al-directed. Thoug content:? Denie s auditory and vis ual hallucinations .? No delusions or paranoia are note d.? She denies paola cidal ideation cur rently.? No homici mary lou ideation. Fund of knowledge is a verage. Insight an d judgment appear to be poor. Impuls e control is very poor. Cognition: Patient Appearance: Disheveled/Poor Hygiene Level of Consciousness: Awake, Alert, Appropriate and Follows Commands Patient Cognition Impaired: Yes Ability to Follow Directions: Excellent Patient Orientation (long list): Person, Name, Birthday, Month and Year Comprehension Ability: No Impairment Hallucination Type: None Delusion Description: Not Present Thought Process: Perseveration Affect: Affect Description: Calm and Flat Behavior: Patient Behavior: Cooperative Speech Pattern: Clear Vitals/I&O/Wt Last Vital Signs Temp 97.7 F 11/07/21 06:00 Pulse 73 11/07/21 06:00 Resp 18 11/07/21 06:00 BP 115/76 11/07/21 06:00 Pulse Ox 95 11/07/21 06:00 Data NPU : 11/06/21 09:45 11/06/21 07:45 A&P Assessment and plan (1) Anemia of chronic disease: Status: Acute (2) Suicide ideation: Status: Acute (3) Acute flank pain: Status: Acute (4) Depression: Status: Acute Qualifiers: Depression Type: unspecified Qualified Code(s): F32.9 - Major depressive disorder, single episode, unspecified (5) Below-knee amputation of left lower extremity: Status: Acute (6) ALEJANDRO (generalized anxiety disorder): Status: Acute (7) Diabetic ophthalmopathy: Status: Acute (8) Diabetic gastroparesis: Status: Chronic (9) Insomnia: Status: Acute Qualifiers: Insomnia type: due to medical condition Qualified Code(s): G47.01 - Insomnia due to medical condition (10) Diabetes mellitus type 1: Status: Chronic Qualifiers: Diabetes mellitus complication status: with hyperglycemia Qualified Code(s): E10.65 - Type 1 diabetes mellitus with hyperglycemia (11) GERD (gastroesophageal reflux disease): Status: Acute Qualifiers: Esophagitis presence: without esophagitis Qualified Code(s): K21.9 - Gastro-esophageal reflux disease without esophagitis (12) Amputation of toe of right foot: Status: Acute Plan This is a 41-year-old female with right flank pain possibly because of diabetic gastroparesis multiple admissions wanted to because of the pain Plan: 1.? Continue current medication.? Ativan 0.5 mg twice a day. add ferous sulfate. 2.? Continue every 15 minute checks for safety. 3.? Encourage individual, group and milieu therapies. 4.? Encourage sober living treatment after discharge at the highest level of care to which she is willing to commit. 5.? We will monitor for safety for herself in the community prior to discharge. Involuntary Hold Information 96 Hour Hold: 96 Hour Involuntary Admission: No 96 Hour Hold Ending Date: 09/15/21 96 Hour Hold Ending Time: 00:01 Attestations NPU Medical Necessity Statement*: Inpatient hospitalization is medically necessary and the clinically appropriate intervention at this time. We will initiate medications and make changes as indicated. 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 Code Acute Yardage Tufting Machine Operator for Kim Mitchell Diagnoses Anemia of chronic disease D63.8 Suicide ideation R45.851 Acute flank pain R10.9 Depression F32.9 Depression Type: unspecified Below-knee amputation of left lower extremity S88.112A ALEJANDRO (generalized anxiety disorder) F41.1 Diabetic ophthalmopathy E11.39 Diabetic gastroparesis E11.43; K31.84 Insomnia G47.01 Insomnia type: due to medical condition Diabetes mellitus type 1 E10.65 Diabetes mellitus complication status: with hyperglycemia GERD (gastroesophageal reflux disease) K21.9 Esophagitis presence: without esophagitis Amputation of toe of right foot S98.131A
[2021-11-07] MEDS: tamsulosin 0.4 mg Capsule PO (08:32)
[2021-11-07] MEDS: gabapentin 300 mg Capsule 600 MG PO ×5 (08:32→22:05)
[2021-11-07] MEDS: docusate sodium 100 mg Capsule PO ×2 (08:32→22:06)
[2021-11-07 08:33] VITALS: RESP 17
[2021-11-07] MEDS: amlodipine 10 mg Tablet PO (08:33)
[2021-11-07] MEDS: spironolactone 25 mg Tablet PO (08:33)
[2021-11-07] MEDS: ondansetron 4 MG Tablet 8 MG PO ×2 (08:33→20:24)
[2021-11-07] MEDS: lidocaine 5% Patch 1 PATCH TOPICAL (08:33)
[2021-11-07] MEDS: atorvastatin 40 mg Tablet PO (08:33)
[2021-11-07] MEDS: metoprolol succinate ER (24 HR) 25 mg Tablet 50 MG PO (08:33)
[2021-11-07] MEDS: LORazepam 0.5 mg Tablet PO ×2 (08:33→22:08)
[2021-11-07] MEDS: duloxetine 60 mg Capsule PO ×2 (08:33→22:04)
--- NOTE | 2021-11-07 10:54 | NPU.GN ---
[facility] Topic:Positive Coping Skills General Mood of Group: Cherrie did not attend group today.
[2021-11-07 11:39] LABS: Glucose Point of Care 193 mg/dL (70-110)
[2021-11-07] MEDS: insulin lispro 100 unit/1 mL SUBCUT ×3 (11:44→21:35)
[2021-11-07 14:00] VITALS: BP 98/60; PULSE 72; RESP 16; TEMP 36.9; O2SAT 98
[2021-11-07 14:53] VITALS: RESP 16
--- NOTE | 2021-11-07 15:59 | PC.NURSE ---
PRN VISTARIL 50 MG GIVEN PO PER PT C/O STATED ANXIETY. WILL CONT TO MONITOR
[2021-11-07 16:36] LABS: Glucose Point of Care 170 mg/dL (70-110)
[2021-11-07] MEDS: ferrous sulfate EC 325 mg Tablet PO (16:48)
[2021-11-07] MEDS: quetiapine 100 mg Tablet 200 MG PO (20:25)
[2021-11-07] MEDS: ropinirole 1 mg Tablet PO (20:25)
[2021-11-07] MEDS: trazodone 50 mg Tablet PO ×2 (21:15→21:40)
[2021-11-07] MEDS: insulin glargine 100 units/1 mL 40 UNIT SUBCUT (21:39)
[2021-11-07 21:41] LABS: Glucose Point of Care 351 mg/dL (70-110)
[2021-11-07 22:00] VITALS: BP 120/91; PULSE 74; RESP 18; TEMP 36.5; O2SAT 97
--- NOTE | 2021-11-08 03:06 | PC.NURSE ---
2024- she rec'd flexeril for spasms. It was effective. 2139- She rec'd trazodone for insomnia. It was effective.
[2021-11-08 03:25] VITALS: RESP 18
[2021-11-08] MEDS: oxyCODONE-APAP 10-325 mg Tablet 1 TAB PO ×3 (03:25→20:20)
--- NOTE | 2021-11-08 03:26 | PC.NURSE ---
0325 rec'd oxycodone/acetaminophen for right flank pain.
[2021-11-08] MEDS: hyDROXYzine 25 mg Capsule 50 MG PO ×3 (04:34→17:33)
--- NOTE | 2021-11-08 04:34 | PC.NURSE ---
4294 c/o vistaril given for anxiety
[2021-11-08 06:00] VITALS: BP 98/60; PULSE 68; RESP 17; TEMP 36.9; O2SAT 94
[2021-11-08 06:24] LABS: Glucose Point of Care 145 mg/dL (70-110)
[2021-11-08] MEDS: gabapentin 300 mg Capsule 600 MG PO ×4 (08:40→20:19)
[2021-11-08] MEDS: lidocaine 5% Patch 1 PATCH TOPICAL (08:40)
[2021-11-08] MEDS: duloxetine 60 mg Capsule PO ×2 (08:41→20:19)
[2021-11-08] MEDS: atorvastatin 40 mg Tablet PO (08:41)
[2021-11-08] MEDS: metoprolol succinate ER (24 HR) 25 mg Tablet 50 MG PO (08:41)
[2021-11-08] MEDS: acetaminophen 325 mg Tablet 650 MG PO (08:41)
[2021-11-08] MEDS: amlodipine 10 mg Tablet PO (08:41)
[2021-11-08] MEDS: ondansetron 4 MG Tablet 8 MG PO ×2 (08:41→20:19)
[2021-11-08] MEDS: tamsulosin 0.4 mg Capsule PO (08:41)
[2021-11-08] MEDS: LORazepam 0.5 mg Tablet PO ×2 (08:41→20:19)
[2021-11-08] MEDS: ferrous sulfate EC 325 mg Tablet PO ×2 (08:42→17:29)
[2021-11-08] MEDS: docusate sodium 100 mg Capsule PO ×2 (08:42→20:20)
[2021-11-08] MEDS: insulin lispro 100 unit/1 mL SUBCUT ×3 (08:42→22:07)
[2021-11-08] MEDS: spironolactone 25 mg Tablet PO (08:42)
[2021-11-08 10:48] VITALS: RESP 16
[2021-11-08] MEDS: cyclobenzaprine 10 mg Tablet PO ×2 (10:48→20:19)
[2021-11-08 11:16] LABS: Glucose Point of Care 136 mg/dL (70-110)
--- NOTE | 2021-11-08 11:27 | NPU.GN ---
[facility] Topic:Positive Thoughts/ Negative Thoughts General Mood of Group:Cherrie did not attend group. She wanted to sleep.
[2021-11-08] MEDS: neomycin-poly-bacitracin oint 28 gm 1 APPLIC TOPICAL ×2 (12:33→17:31)
--- NOTE | 2021-11-08 12:51 | PC.NURSE ---
PRN MEDS PT C/O PAIN AND MUSCLE SPASMS IN MORNING. TOOK PRN FLEXERIL AND OXY AT 0840 TO SOME EFFECT. D C/O ANXIETY AND TOOK PRN VISTARIL AT 1115 THAT WAS EFFECTIVE. PT REPORTS THAT INCREASED ANXIETY IS D/T A FAMILY ARGUMENT THAT HAS RESULTED IN HER DAUGHTER NOT BEING AT HER HOUSE WITH AND FEARS THAT SHE WILL NO LONGER GET TO SEE HER GRANDCHILDREN BY THAT DAUGHTER. PT IS ALSO WORRIED ABOUT THE ADDED WORK THIS WILL ADD TO HER SINCE DAUGHTER WILL NO LONGER BE HELPING WITH [employer]. TEARFUL ABOUT THAT THIS BUT REPORTS THAT SHE HAS RECENTLY GOTTEN A ERP ENGINEER DOG THAT IS HELPFUL FOR HER ANXIETIES.
--- NOTE | 2021-11-08 12:52 | W.PM.NPUPNS ---
Subjective NPU Subjective: She said that she is doing well other than being tired. She did not sleep very well last night. She says that she tosses and turns even at home. She has tried adding melatonin to the Seroquel but it does not help. She thought she was on 300 mg previously but I cannot find a record of that. She says that her pain is adequately controlled at this point. Mental Status Exam MSE Comments: This is a 41-year- old fema le who appears batool ewhat older than h er stated age.? Sh mary is sitting on th e side of her bed and does not appea r to be in much pa in. Both of her ey es are black and s he has a big scab on her forehead fr om self-inflicted injuries.? She is dressed in hospita l scrubs and poorl y groomed. psychom otor activity incr eased. Speech is a t a regular rate a nd rhythm, normal volume, good artic ulation, not press ured. Alert, I did not ask questions about orientation . Attention and co ncentration she is focused on her pa in and says only s ays that she wants to .. Memory i s intact Mood is d epressed but aura r.? Affect is mild ly dysphoric. Thou ght process is log ical and goal-dire cted. Thought cont ent:? Denies audit ory and visual mike lucinations.? No d elusions or parano ia are noted.? She denies suicidal i deation currently. ? No homicidal mansi ation. [facility] of [facility] [place] average. Insight and judgm ent appear to be p oor. Impulse contr ol is very poor. Cognition: Patient Appearance: Disheveled/Poor Hygiene Level of Consciousness: Awake, Alert, Appropriate and Follows Commands Patient Cognition Impaired: Yes Ability to Follow Directions: Excellent Patient Orientation (long list): Person, Name, Birthday, Month and Year Comprehension Ability: No Impairment Hallucination Type: None Delusion Description: Not Present Thought Process: Perseveration Affect: Affect Description: Appropriate and Calm Behavior: Patient Behavior: Appropriate and Cooperative Speech Pattern: Appropriate and Clear Vitals/I&O/Wt Last Vital Signs Temp 98.4 F 11/08/21 06:00 Pulse 68 11/08/21 06:00 Resp 16 11/08/21 10:48 BP 98/60 11/08/21 06:00 Pulse Ox 94 11/08/21 06:00 Data NPU : 11/06/21 09:45 11/06/21 07:45 A&P Assessment and plan (1) Anemia of chronic disease: Status: Acute (2) Suicide ideation: Status: Acute (3) Acute flank pain: Status: Acute (4) Depression: Status: Acute Qualifiers: Depression Type: unspecified Qualified Code(s): F32.9 - Major depressive disorder, single episode, unspecified (5) Below-knee amputation of left lower extremity: Status: Acute (6) ALEJANDRO (generalized anxiety disorder): Status: Acute (7) Diabetic ophthalmopathy: Status: Acute (8) Diabetic gastroparesis: Status: Chronic (9) Insomnia: Status: Acute Qualifiers: Insomnia type: due to medical condition Qualified Code(s): G47.01 - Insomnia due to medical condition (10) Diabetes mellitus type 1: Status: Chronic Qualifiers: Diabetes mellitus complication status: with hyperglycemia Qualified Code(s): E10.65 - Type 1 diabetes mellitus with hyperglycemia (11) GERD (gastroesophageal reflux disease): Status: Acute Qualifiers: Esophagitis presence: without esophagitis Qualified Code(s): K21.9 - Gastro-esophageal reflux disease without esophagitis (12) Amputation of toe of right foot: Status: Acute Plan This is a 41-year-old female with right flank pain possibly because of diabetic gastroparesis multiple admissions wanted to because of the pain Plan: 1.? Continue current medication.? Ativan 0.5 mg twice a day. 2.? Continue every 15 minute checks for safety. 3.? Encourage individual, group and milieu therapies. 4.? Encourage sober living treatment after discharge at the highest level of care to which she is willing to commit. 5.? We will monitor for safety for herself in the community prior to discharge. Involuntary Hold Information 96 Hour Hold: 96 Hour Involuntary Admission: No 96 Hour Hold Ending Date: 09/15/21 96 Hour Hold Ending Time: 00:01 Attestations NPU Medical Necessity Statement*: Inpatient hospitalization is medically necessary and the clinically appropriate intervention at this time. We will initiate medications and make changes as indicated. 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 Code Acute Shelter Monitor for g Fwd Diagnoses Anemia of chronic disease D63.8 Suicide ideation R45.851 Acute flank pain R10.9 Depression F32.9 Depression Type: unspecified Below-knee amputation of left lower extremity S88.112A ALEJANDRO (generalized anxiety disorder) F41.1 Diabetic ophthalmopathy E11.39 Diabetic gastroparesis E11.43; K31.84 Insomnia G47.01 Insomnia type: due to medical condition Diabetes mellitus type 1 E10.65 Diabetes mellitus complication status: with hyperglycemia GERD (gastroesophageal reflux disease) K21.9 Esophagitis presence: without esophagitis Amputation of toe of right foot S98.131A
[2021-11-08 13:58] VITALS: BP 95/56; PULSE 86; RESP 16; TEMP 36.6; O2SAT 97
[2021-11-08 16:24] LABS: Glucose Point of Care 170 mg/dL (70-110)
--- NOTE | 2021-11-08 18:05 | PC.NURSE ---
PRN Medication Patient reports mild anxiety and request PRN. Vistaril 50 MG given as ordered vat 1732. Follow up at 1806, patient reports some effectiveness with PRN medication administration. In room sitting on bed reading in no obvious distress.
[2021-11-08] MEDS: quetiapine 100 mg Tablet 200 MG PO (20:19)
[2021-11-08] MEDS: OLANZapine 5 mg ODT PO (20:19)
[2021-11-08] MEDS: ropinirole 1 mg Tablet PO (20:19)
[2021-11-08 20:20] VITALS: RESP 17
[2021-11-08 20:52] LABS: Glucose Point of Care 213 mg/dL (70-110)
[2021-11-08] MEDS: polyethylene glycol 3350 Pkt 17 gm PO (21:13)
[2021-11-08 21:33] VITALS: BP 150/89; PULSE 96; RESP 19; TEMP 36.6; O2SAT 97
[2021-11-08] MEDS: insulin glargine 100 units/1 mL 40 UNIT SUBCUT (22:06)
[2021-11-09 06:00] VITALS: BP 119/69; PULSE 78; RESP 18; TEMP 36.6; O2SAT 97
[2021-11-09 06:25] VITALS: RESP 16
[2021-11-09] MEDS: oxyCODONE-APAP 10-325 mg Tablet 1 TAB PO ×3 (06:25→20:09)
[2021-11-09] MEDS: hyDROXYzine 25 mg Capsule 50 MG PO ×2 (06:32→22:17)
--- NOTE | 2021-11-09 06:32 | PC.NURSE ---
50mg Vistaril given for C/O pain and anxiety.
[2021-11-09 08:04] LABS: Glucose Point of Care 194 mg/dL (70-110)
[2021-11-09] MEDS: lidocaine 5% Patch 1 PATCH TOPICAL ×2 (08:18→21:40)
[2021-11-09] MEDS: metoprolol succinate ER (24 HR) 25 mg Tablet 50 MG PO (08:18)
[2021-11-09] MEDS: cyclobenzaprine 10 mg Tablet PO ×2 (08:19→20:09)
[2021-11-09] MEDS: atorvastatin 40 mg Tablet PO (08:19)
[2021-11-09] MEDS: duloxetine 60 mg Capsule PO ×2 (08:19→20:00)
[2021-11-09] MEDS: LORazepam 0.5 mg Tablet PO ×2 (08:19→20:01)
[2021-11-09] MEDS: spironolactone 25 mg Tablet PO (08:19)
[2021-11-09] MEDS: amlodipine 10 mg Tablet PO (08:19)
[2021-11-09] MEDS: ferrous sulfate EC 325 mg Tablet PO ×2 (08:19→17:30)
[2021-11-09] MEDS: tamsulosin 0.4 mg Capsule PO (08:19)
[2021-11-09] MEDS: docusate sodium 100 mg Capsule PO ×2 (08:19→20:01)
[2021-11-09] MEDS: OLANZapine 5 mg ODT PO ×2 (08:19→13:18)
[2021-11-09] MEDS: gabapentin 300 mg Capsule 600 MG PO ×4 (08:19→20:00)
[2021-11-09] MEDS: insulin lispro 100 unit/1 mL SUBCUT ×4 (10:51→22:19)
[2021-11-09 11:58] LABS: Glucose Point of Care 170 mg/dL (70-110)
[2021-11-09 11:58] LABS: Glucose Point of Care 508 mg/dL (70-110)
--- NOTE | 2021-11-09 12:00 | NPU.GN ---
[facility] Topic:Whine Barrel Activity General Mood of Group: Cherrie did attend group and her hygiene was poor. She was social in group.
[2021-11-09 13:18] VITALS: RESP 18
--- NOTE | 2021-11-09 13:36 | PC.NURSE ---
Patient at nurses station with c/o pain rated 7 in r flank and anxiety. Anxious affect observed. Given oral percocet 10/325 and zyprexa 5 mg sl for this.
[2021-11-09 14:00] VITALS: BP 112/73; PULSE 77; RESP 16; TEMP 36.7; O2SAT 98
--- NOTE | 2021-11-09 15:34 | P.NPUPN_ITS ---
Subjective NPU Subjective: Patient presents today much like she has in her previous inpatient stays with significant issues surrounding pain management, medications, home health needs and poor management of her medical comorbidities. She has been admitted to the [facility] program which will help with some of the psychosocial issues but still needing management of these medical comorbidities we have put in an order for home health which has been rejected in the past but is unclear need with her chronic pain and other issues. We discussed trying to see if that could be something that could be put in place quickly so that she could have a shorter stay in the hospital. Mental Status Exam MSE Comments: This is an overweight white female in hospital scrubs with limited grooming and eye contact.? 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 No abnormal movements except for psychomotor retardation.? Cooperative with exam in no acute distress.? Speech was decreased rate and volume.? Mood described as okay, affect congruent.? Thought process organized.? Thought content: Patient denied suicidal or homicidal ideation, there were no delusions reported or noted, she denied auditory or visual hallucinations.? Attention and concentration were improving and memory appeared more reliable but none were formally tested.? She is alert and oriented x3.? Insight and judgment are limited,?and impulse control is li mited. Vitals/I&O/Wt Last Vital Signs Temp 98.0 F 11/09/21 14:00 Pulse 77 11/09/21 14:00 Resp 16 11/09/21 14:00 BP 112/73 11/09/21 14:00 Pulse Ox 98 11/09/21 14:00 Data NPU : 11/06/21 09:45 11/06/21 07:45 A&P Assessment and plan (1) Suicide ideation: Status: Acute (2) Acute flank pain: Status: Acute (3) Depression: Status: Acute Qualifiers: Depression Type: unspecified Qualified Code(s): F32.9 - Major depressive disorder, single episode, unspecified (4) Hyperglycemia: Status: Acute (5) Diabetes mellitus type 1: Status: Chronic Qualifiers: Diabetes mellitus complication status: with hyperglycemia Qualified Code(s): E10.65 - Type 1 diabetes mellitus with hyperglycemia (6) Diabetic gastroparesis: Status: Chronic (7) Anemia of chronic disease: Status: Acute (8) Below-knee amputation of left lower extremity: Status: Acute (9) GERD (gastroesophageal reflux disease): Status: Acute Qualifiers: Esophagitis presence: without esophagitis Qualified Code(s): K21.9 - Gastro-esophageal reflux disease without esophagitis (10) ALEJANDRO (generalized anxiety disorder): Status: Acute (11) Diabetic ophthalmopathy: Status: Acute (12) Coronary artery disease: Status: Acute Qualifiers: Coronary Disease-Associated Artery/Lesion type: [place] artery [place] vs. transplanted heart: [place] heart Associated angina: without angina Qualified Code(s): I25.10 - Atherosclerotic heart disease of [place] coronary artery without angina pectoris (13) Diabetic neuropathy: Status: Acute Qualifiers: Diabetes mellitus type: type 1 Diabetes mellitus complication detail: diabetic polyneuropathy Qualified Code(s): E10.42 - Type 1 diabetes mellitus with diabetic polyneuropathy (14) Amputation of toe of right foot: Status: Acute (15) Suicide attempt: Status: Acute (16) Pain of amputation stump of left lower extremity: Status: Acute (17) History of financial difficulties: Status: Acute (18) Hypertension: Status: Chronic Qualifiers: Hypertension type: unspecified Qualified Code(s): I10 - Essential (primary) hypertension (19) Chronic pain: Status: Acute Plan This is a 41-year-old female with right flank pain possibly because of diabetic gastroparesis multiple admissions wanted to because of the pain Plan: 1.? Continue current medication.? Ativan 0.5 mg twice a day.? 2.? Continue every 15 minute checks for safety. 3.? Encourage individual, group and milieu therapies. 4.? Encourage sober living treatment after discharge at the highest level of care to which she is willing to commit. 5.? We once again tried to get home health for chronic pain and physical therapy and diabetic issues. Involuntary Hold Information 96 Hour Hold: 96 Hour Involuntary Admission: No 96 Hour Hold Ending Date: 09/15/21 96 Hour Hold Ending Time: 00:01 Attestations NPU Medical Necessity Statement*: Inpatient hospitalization is medically necessary and the clinically appropriate intervention at this time.? We will monitor medications and make changes as indicated. Likely length of stay 2 to 4 days. 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 Suicide ideation R45.851 Acute flank pain R10.9 Depression F32.9 Depression Type: unspecified Hyperglycemia R73.9 Diabetes mellitus type 1 E10.65 Diabetes mellitus complication status: with hyperglycemia Diabetic gastroparesis E11.43; K31.84 Anemia of chronic disease D63.8 Below-knee amputation of left lower extremity S88.112A GERD (gastroesophageal reflux disease) K21.9 Esophagitis presence: without esophagitis ALEJANDRO (generalized anxiety disorder) F41.1 Diabetic ophthalmopathy E11.39 Coronary artery disease I25.10 Coronary Disease-Associated Artery/Lesion type: [place] artery [place] vs. transplanted heart: [place] heart Associated angina: without angina Diabetic neuropathy E10.42 Diabetes mellitus type: type 1 Diabetes mellitus complication detail: diabetic polyneuropathy Amputation of toe of right foot S98.131A Suicide attempt T14.91XA Pain of amputation stump of left lower extremity T87.89; M79.605 History of financial difficulties Z87.898 Hypertension I10 Hypertension type: unspecified Chronic pain G89.29
[2021-11-09] MEDS: neomycin-poly-bacitracin oint 28 gm 1 APPLIC TOPICAL (15:48)
[2021-11-09 16:23] LABS: Glucose Point of Care 223 mg/dL (70-110)
[2021-11-09] MEDS: haloperidol 5 mg Tablet PO (17:38)
--- NOTE | 2021-11-09 18:27 | PC.NURSE ---
PRN Medication Up to nurses station and reports increased anxiety. Haldol 5 MG given as ordered at 1738. Reassessed anxiety at 1828 and patient reports improvement. Currently sitting in bed in no obvious distress.
[2021-11-09] MEDS: ondansetron 4 MG Tablet 8 MG PO (20:00)
[2021-11-09] MEDS: quetiapine 100 mg Tablet 200 MG PO (20:01)
[2021-11-09] MEDS: trazodone 50 mg Tablet PO (20:06)
[2021-11-09] MEDS: ropinirole 1 mg Tablet PO (20:07)
[2021-11-09 20:09] VITALS: RESP 18; O2SAT 98
[2021-11-09 20:25] VITALS: BP 101/61; PULSE 103; RESP 25; O2SAT 96
--- NOTE | 2021-11-09 20:26 | PC.NURSE ---
Patient at nurses station with c/o pain rated 7 in r flank and muscle spasm. Given oral percocet 10/325 and flexaril 10 mg po for muscle spasm
[2021-11-09 21:00] LABS: Glucose Point of Care 225 mg/dL (70-110)
[2021-11-09] MEDS: insulin glargine 100 units/1 mL 40 UNIT SUBCUT (22:18)
[2021-11-10] VITALS (7 sets, daily range): BP systolic 100–107; BP diastolic 67–73; PULSE 77–150; RESP 16–19; TEMP 36.4–37.2; O2SAT 97–100
[2021-11-10] MEDS: oxyCODONE-APAP 10-325 mg Tablet 1 TAB PO ×4 (02:26→20:51)
[2021-11-10] MEDS: cyclobenzaprine 10 mg Tablet PO (06:24)
[2021-11-10] MEDS: hyDROXYzine 25 mg Capsule 50 MG PO ×3 (06:24→20:42)
[2021-11-10 06:57] LABS: Glucose Point of Care 156 mg/dL (70-110)
[2021-11-10] MEDS: polyethylene glycol 3350 Pkt 17 gm PO (08:36)
[2021-11-10] MEDS: ferrous sulfate EC 325 mg Tablet PO ×2 (08:38→17:53)
[2021-11-10] MEDS: amlodipine 10 mg Tablet PO (08:38)
[2021-11-10] MEDS: docusate sodium 100 mg Capsule PO ×2 (08:39→20:43)
[2021-11-10] MEDS: atorvastatin 40 mg Tablet PO (08:39)
[2021-11-10] MEDS: duloxetine 60 mg Capsule PO ×2 (08:40→20:42)
[2021-11-10] MEDS: lidocaine 5% Patch 1 PATCH TOPICAL (08:41)
[2021-11-10] MEDS: LORazepam 0.5 mg Tablet PO (08:41)
[2021-11-10] MEDS: gabapentin 300 mg Capsule 600 MG PO ×4 (08:41→20:42)
[2021-11-10] MEDS: metoprolol succinate ER (24 HR) 25 mg Tablet 50 MG PO (08:42)
[2021-11-10] MEDS: spironolactone 25 mg Tablet PO (08:42)
[2021-11-10] MEDS: tamsulosin 0.4 mg Capsule PO (08:42)
[2021-11-10] MEDS: ondansetron 4 MG Tablet 8 MG PO ×2 (08:43→20:43)
[2021-11-10] MEDS: insulin lispro 100 unit/1 mL SUBCUT ×4 (08:44→20:46)
[2021-11-10 11:40] LABS: Glucose Point of Care 156 mg/dL (70-110)
[2021-11-10] MEDS: OLANZapine 5 mg ODT PO ×2 (14:54→18:49)
[2021-11-10] MEDS: haloperidol 5 mg Tablet PO (15:30)
--- NOTE | 2021-11-10 16:15 | P.NPUPN_ITS ---
Subjective NPU Subjective: Patient identified that she talk to social work and there has been some progress on the home health situation. We also discussed that the [facility] program was going to affect on November 17 and so that we are trying to find a happy medium between discharging her and there not being immediate help available for her versus waiting until it is absolutely in place which also may not be necessary. The psychiatric support with some medical assistance is in place but the true medically based home health has not been completely procured. We discussed how those pieces will impact discharge date. Mental Status Exam MSE Comments: This is an overweight white female in hospital scrubs with limited grooming and eye contact.? 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 No abnormal movements except for psychomotor retardation.? Cooperative with exam in no acute distress.? Speech was decreased rate and volume.? Mood described as all right, affect congruent.? Thought process organized.? Thought content: Patient denied suicidal or homicidal ideation, there were no delusions reported or noted, she denied auditory or visual hallucinations.? Attention and concentration were improving and memory appeared more reliable but none were formally tested.? She is alert and oriented x3.? Insight and judgment are limited,?and impulse control is limited. Vitals/I&O/Wt Last Vital Signs Temp 97.8 F 11/10/21 14:00 Pulse 84 11/10/21 14:00 Resp 19 H 11/10/21 14:00 BP 107/73 11/10/21 14:00 Pulse Ox 100 11/10/21 14:00 Data NPU : 11/06/21 09:45 11/06/21 07:45 A&P Assessment and plan (1) Chronic pain: Status: Acute (2) Suicide ideation: Status: Acute (3) Acute flank pain: Status: Acute (4) Depression: Status: Acute Qualifiers: Depression Type: unspecified Qualified Code(s): F32.9 - Major depressive disorder, single episode, unspecified (5) Hyperglycemia: Status: Acute (6) Diabetes mellitus type 1: Status: Chronic Qualifiers: Diabetes mellitus complication status: with hyperglycemia Qualified Code(s): E10.65 - Type 1 diabetes mellitus with hyperglycemia (7) Diabetic gastroparesis: Status: Chronic (8) Anemia of chronic disease: Status: Acute (9) Below-knee amputation of left lower extremity: Status: Acute (10) Insomnia: Status: Acute Qualifiers: Insomnia type: due to medical condition Qualified Code(s): G47.01 - Insomnia due to medical condition (11) GERD (gastroesophageal reflux disease): Status: Acute Qualifiers: Esophagitis presence: without esophagitis Qualified Code(s): K21.9 - Gastro-esophageal reflux disease without esophagitis (12) ALEJANDRO (generalized anxiety disorder): Status: Acute (13) Noncompliance: Status: Acute (14) Diabetic ophthalmopathy: Status: Acute (15) Coronary artery disease: Status: Acute Qualifiers: Coronary Disease-Associated Artery/Lesion type: [place] artery [place] vs. transplanted heart: [place] heart Associated angina: without angina Qualified Code(s): I25.10 - Atherosclerotic heart disease of [place] coronary artery without angina pectoris (16) Hypertension: Status: Chronic Qualifiers: Hypertension type: unspecified Qualified Code(s): I10 - Essential (primary) hypertension (17) History of financial difficulties: Status: Acute (18) Pain of amputation stump of left lower extremity: Status: Acute (19) Low back pain: Status: Acute (20) Suicide attempt: Status: Acute (21) Amputation of toe of right foot: Status: Acute (22) Diabetic neuropathy: Status: Acute Qualifiers: Diabetes mellitus type: type 1 Diabetes mellitus complication detail: diabetic polyneuropathy Qualified Code(s): E10.42 - Type 1 diabetes mellitus with diabetic polyneuropathy Plan This is a 41-year-old female with right flank pain possibly because of diabetic gastroparesis multiple admissions wanted to because of the pain Plan: 1.? Continue current medication.? Ativan 0.5 mg twice a day.? 2.? Continue every 15 minute checks for safety. 3.? Encourage individual, group and milieu therapies. 4.? Encourage sober living treatment after discharge at the highest level of care to which she is willing to commit. 5.? We once again put in orders to get home health for chronic pain and physical therapy and diabetic issues. Involuntary Hold Information 96 Hour Hold: 96 Hour Involuntary Admission: No 96 Hour Hold Ending Date: 09/15/21 96 Hour Hold Ending Time: 00:01 Attestations NPU Medical Necessity Statement*: Inpatient hospitalization is medically necessary and the clinically appropriate intervention at this time.? We will monitor medications and make changes as indicated.? Likely length of stay 2 to 4 days. 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 Chronic pain G89.29 Suicide ideation R45.851 Acute flank pain R10.9 Depression F32.9 Depression Type: unspecified Hyperglycemia R73.9 Diabetes mellitus type 1 E10.65 Diabetes mellitus complication status: with hyperglycemia Diabetic gastroparesis E11.43; K31.84 Anemia of chronic disease D63.8 Below-knee amputation of left lower extremity S88.112A Insomnia G47.01 Insomnia type: due to medical condition GERD (gastroesophageal reflux disease) K21.9 Esophagitis presence: without esophagitis ALEJANDRO (generalized anxiety disorder) F41.1 Noncompliance Z91.19 Diabetic ophthalmopathy E11.39 Coronary artery disease I25.10 Coronary Disease-Associated Artery/Lesion type: [place] artery [place] vs. transplanted heart: [place] heart Associated angina: without angina Hypertension I10 Hypertension type: unspecified History of financial difficulties Z87.898 Pain of amputation stump of left lower extremity T87.89; M79.605 Low back pain M54.5 Suicide attempt T14.91XA Amputation of toe of right foot S98.131A Diabetic neuropathy E10.42 Diabetes mellitus type: type 1 Diabetes mellitus complication detail: diabetic polyneuropathy
[2021-11-10 17:43] LABS: Glucose Point of Care 266 mg/dL (70-110)
[2021-11-10 20:37] LABS: Glucose Point of Care 203 mg/dL (70-110)
[2021-11-10] MEDS: quetiapine 100 mg Tablet 200 MG PO (20:42)
[2021-11-10] MEDS: ropinirole 1 mg Tablet PO (20:43)
[2021-11-10] MEDS: insulin glargine 100 units/1 mL 40 UNIT SUBCUT (20:43)
[2021-11-10] MEDS: calcium carbonate 500 mg Chew Tablet 1000 MG PO (23:20)
[2021-11-11] MEDS: haloperidol 5 mg Tablet PO (00:25)
--- NOTE | 2021-11-11 00:26 | PC.NURSE ---
Patient requested medication for anxiety after Visteril did not help. Haldol given.
[2021-11-11] MEDS: loperamide 2 mg Capsule PO (01:32)
--- NOTE | 2021-11-11 01:32 | PC.NURSE ---
Patient has had 3 loose bowel movements since 7pm. Immodium 2mg po given for diarrhea.
--- NOTE | 2021-11-11 02:26 | PC.NURSE ---
Patient with another loose bowel movement. The order as is won't allow another dose to be given for 6 hours. Per pharmacy the typical order reads 2 tabs as the initial dose and then 1 tab each loose bm, not exceeding 16 mg-8 tabs in 24 hours. Will call for further orders.
--- NOTE | 2021-11-11 02:54 | PC.NURSE ---
Patient back in the bathroom with another loose bowel movement.
[2021-11-11 03:02] VITALS: RESP 18
[2021-11-11] MEDS: oxyCODONE-APAP 10-325 mg Tablet 1 TAB PO ×3 (03:02→19:45)
--- NOTE | 2021-11-11 03:33 | PC.NURSE ---
Patient has been up to the bathroom x2 in the last 30 min. This makes 6 episodes of diarrhea.
[2021-11-11] MEDS: phenyleph-mineral oil-petrolat Oint 28 gm 1 APPLIC TOPICAL ×4 (04:08→20:42)
[2021-11-11 06:00] VITALS: BP 110/78; PULSE 79; RESP 16; TEMP 36.6; O2SAT 98
[2021-11-11 07:01] LABS: Glucose Point of Care 119 mg/dL (70-110)
[2021-11-11] MEDS: OLANZapine 5 mg ODT PO (07:24)
[2021-11-11] MEDS: metoprolol succinate ER (24 HR) 25 mg Tablet 50 MG PO (08:10)
[2021-11-11] MEDS: tamsulosin 0.4 mg Capsule PO (08:10)
[2021-11-11] MEDS: ferrous sulfate EC 325 mg Tablet PO ×2 (08:11→17:24)
[2021-11-11] MEDS: ondansetron 4 MG Tablet 8 MG PO ×2 (08:11→20:44)
[2021-11-11] MEDS: duloxetine 60 mg Capsule PO ×2 (08:11→20:40)
[2021-11-11] MEDS: amlodipine 10 mg Tablet PO (08:11)
[2021-11-11] MEDS: gabapentin 300 mg Capsule 600 MG PO ×4 (08:12→20:40)
[2021-11-11] MEDS: atorvastatin 40 mg Tablet PO (08:12)
[2021-11-11] MEDS: spironolactone 25 mg Tablet PO (08:12)
[2021-11-11] MEDS: hyDROXYzine 25 mg Capsule 50 MG PO ×2 (08:28→14:33)
--- NOTE | 2021-11-11 08:29 | PC.NURSE ---
Addendum entered by Wiliam Jimenez RN 11/11/21 10:28: LATE ENTRY FOR 09 PRN MEDICATION EFFECTIVE. NO FURTHER C/O ANXIETY VOICED BY PT AT THIS TIME. Original Note: PRN VISTARIL PT UP TO NURSE'S STATION REQUESTING MEDICATION FOR ANXIETY. WHEN ASKED, PT WAS UNABLE TO VOICE THE CAUSE OF HER ANXIETY. PT IS CALM AND DOES NOT DISPLAY ANY OUTWARD S/S OF ANXIETY AT THIS TIME. PRN VISTARIL 50 MG GIVEN PO REQUESTED AT THIS TIME. AFTER MEDICATION WAS ADMINISTERED, PT IMMEDIATELY WENT TO LAY DOWN IN HER BED. WILL CONTINUE TO MONITOR.
[2021-11-11] MEDS: lidocaine 5% Patch 1 PATCH TOPICAL (09:27)
[2021-11-11] MEDS: cyclobenzaprine 10 mg Tablet PO (09:27)
[2021-11-11 10:27] LABS: Glucose Point of Care 195 mg/dL (70-110)
[2021-11-11 11:08] VITALS: RESP 16
[2021-11-11] MEDS: LORazepam 0.5 mg Tablet PO ×2 (11:08→20:41)
[2021-11-11] MEDS: insulin lispro 100 unit/1 mL SUBCUT ×3 (12:05→20:41)
--- NOTE | 2021-11-11 12:44 | P.NPUPN_ITS ---
Subjective NPU Subjective: Patient presents today continuing to stabilize and thinks that he with her walker. She is open to the plan of attempting to discharge at the beginning of the week. At this point we discussed going to the ERE program will be in place on November 17 and we will identify the timeframe to actual interaction with the ERE program on Saturday. And explore the progress with any home health agencies. Otherwise she denied any new or pressing issues. Mental Status Exam MSE Comments: This is an overweight white female in hospital scrubs with limited grooming and eye contact.? 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 No abnormal movements except for psychomotor retardation.? Cooperative with exam in no acute distress.? Speech was decreased rate and volume.? Mood described as okay, affect congruent.? Thought process organized.? Thought content: Patient denied suicidal or homicidal ideation, there were no delusions reported or noted, she denied auditory or visual hallucinations.? Attention and concentration were improving and memory appeared more reliable but none were formally tested.? She is alert and oriented x3.? Insight and judgment are limited,?and impulse control is limited. Vitals/I&O/Wt Last Vital Signs Temp 97.8 F 11/11/21 06:00 Pulse 79 11/11/21 06:00 Resp 16 11/11/21 11:08 BP 110/78 11/11/21 06:00 Pulse Ox 98 11/11/21 06:00 Data NPU : 11/06/21 09:45 11/06/21 07:45 A&P Assessment and plan (1) Chronic pain: Status: Acute (2) Suicide ideation: Status: Acute (3) Acute flank pain: Status: Acute (4) Depression: Status: Acute Qualifiers: Depression Type: unspecified Qualified Code(s): F32.9 - Major depressive disorder, single episode, unspecified (5) Hyperglycemia: Status: Acute (6) Diabetes mellitus type 1: Status: Chronic Qualifiers: Diabetes mellitus complication status: with hyperglycemia Qualified Code(s): E10.65 - Type 1 diabetes mellitus with hyperglycemia (7) Diabetic gastroparesis: Status: Chronic (8) Anemia of chronic disease: Status: Acute (9) Below-knee amputation of left lower extremity: Status: Acute (10) Insomnia: Status: Acute Qualifiers: Insomnia type: due to medical condition Qualified Code(s): G47.01 - Insomnia due to medical condition (11) GERD (gastroesophageal reflux disease): Status: Acute Qualifiers: Esophagitis presence: without esophagitis Qualified Code(s): K21.9 - Gastro-esophageal reflux disease without esophagitis (12) ALEJANDRO (generalized anxiety disorder): Status: Acute (13) Noncompliance: Status: Acute (14) Diabetic ophthalmopathy: Status: Acute (15) Coronary artery disease: Status: Acute Qualifiers: Coronary Disease-Associated Artery/Lesion type: [place] artery [place] vs. transplanted heart: [place] heart Associated angina: without angina Qualified Code(s): I25.10 - Atherosclerotic heart disease of [place] coronary artery without angina pectoris (16) Amputation of toe of right foot: Status: Acute (17) Diabetic neuropathy: Status: Acute Qualifiers: Diabetes mellitus type: type 1 Diabetes mellitus complication detail: diabetic polyneuropathy Qualified Code(s): E10.42 - Type 1 diabetes mellitus with diabetic polyneuropathy (18) Low back pain: Status: Acute (19) Pain of amputation stump of left lower extremity: Status: Acute (20) History of financial difficulties: Status: Acute (21) Hypertension: Status: Chronic Qualifiers: Hypertension type: unspecified Qualified Code(s): I10 - Essential (primary) hypertension Plan This is a 41-year-old female with right flank pain possibly because of diabetic gastroparesis multiple admissions wanted to because of the pain Plan: 1.? Continue current medication.? Ativan 0.5 mg twice a day.? 2.? Continue every 15 minute checks for safety. 3.? Encourage individual, group and milieu therapies. 4.? Encourage sober living treatment after discharge at the highest level of care to which she is willing to commit. 5.? Excepted to the ERE program and we are awaiting word from any home health agencies with plan for discharge next week. Involuntary Hold Information 96 Hour Hold: 96 Hour Involuntary Admission: No 96 Hour Hold Ending Date: 09/15/21 96 Hour Hold Ending Time: 00:01 Attestations NPU Medical Necessity Statement*: Inpatient hospitalization is medically necessary and the clinically appropriate intervention at this time.? We will monitor medications and make changes as indicated.? Likely length of stay 2 to 4 days. 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 Chronic pain G89.29 Suicide ideation R45.851 Acute flank pain R10.9 Depression F32.9 Depression Type: unspecified Hyperglycemia R73.9 Diabetes mellitus type 1 E10.65 Diabetes mellitus complication status: with hyperglycemia Diabetic gastroparesis E11.43; K31.84 Anemia of chronic disease D63.8 Below-knee amputation of left lower extremity S88.112A Insomnia G47.01 Insomnia type: due to medical condition GERD (gastroesophageal reflux disease) K21.9 Esophagitis presence: without esophagitis ALEJANDRO (generalized anxiety disorder) F41.1 Noncompliance Z91.19 Diabetic ophthalmopathy E11.39 Coronary artery disease I25.10 Coronary Disease-Associated Artery/Lesion type: [place] artery [place] vs. transplanted heart: [place] heart Associated angina: without angina Amputation of toe of right foot S98.131A Diabetic neuropathy E10.42 Diabetes mellitus type: type 1 Diabetes mellitus complication detail: diabetic polyneuropathy Low back pain M54.5 Pain of amputation stump of left lower extremity T87.89; M79.605 History of financial difficulties Z87.898 Hypertension I10 Hypertension type: unspecified
[2021-11-11 14:00] VITALS: BP 98/60; PULSE 80; RESP 16; TEMP 36.8; O2SAT 96
--- NOTE | 2021-11-11 14:35 | PC.NURSE ---
PRN Patient states she is feeling anxious and requests medication for anxiety. Vistaril 50mg given PO.
[2021-11-11 16:22] LABS: Glucose Point of Care 215 mg/dL (70-110)
[2021-11-11 19:45] VITALS: RESP 16
[2021-11-11 19:51] LABS: Glucose Point of Care 259 mg/dL (70-110)
[2021-11-11] MEDS: ropinirole 1 mg Tablet PO (20:40)
[2021-11-11] MEDS: quetiapine 100 mg Tablet 200 MG PO (20:40)
[2021-11-11] MEDS: insulin glargine 100 units/1 mL 40 UNIT SUBCUT (20:41)
[2021-11-11 21:54] VITALS: BP 122/72; PULSE 81; RESP 16; TEMP 37.2; O2SAT 96
[2021-11-12] MEDS: trazodone 50 mg Tablet PO ×2 (01:20→20:12)
[2021-11-12] MEDS: hyDROXYzine 25 mg Capsule 50 MG PO ×2 (02:58→12:55)
[2021-11-12] MEDS: cyclobenzaprine 10 mg Tablet PO ×2 (02:58→23:25)
[2021-11-12 03:06] VITALS: RESP 16
[2021-11-12] MEDS: oxyCODONE-APAP 10-325 mg Tablet 1 TAB PO ×4 (03:06→23:28)
[2021-11-12 07:33] LABS: Glucose Point of Care 147 mg/dL (70-110)
[2021-11-12] MEDS: lidocaine 5% Patch 1 PATCH TOPICAL (08:27)
[2021-11-12] MEDS: LORazepam 0.5 mg Tablet PO ×2 (08:28→20:12)
[2021-11-12] MEDS: amlodipine 10 mg Tablet PO (08:28)
[2021-11-12] MEDS: ondansetron 4 MG Tablet 8 MG PO ×2 (08:28→20:12)
[2021-11-12] MEDS: tamsulosin 0.4 mg Capsule PO (08:28)
[2021-11-12] MEDS: insulin lispro 100 unit/1 mL SUBCUT ×3 (08:28→20:11)
[2021-11-12] MEDS: atorvastatin 40 mg Tablet PO (08:28)
[2021-11-12] MEDS: docusate sodium 100 mg Capsule PO (08:28)
[2021-11-12] MEDS: ferrous sulfate EC 325 mg Tablet PO ×2 (08:28→16:29)
[2021-11-12] MEDS: metoprolol succinate ER (24 HR) 25 mg Tablet 50 MG PO (08:28)
[2021-11-12] MEDS: spironolactone 25 mg Tablet PO (08:28)
[2021-11-12] MEDS: gabapentin 300 mg Capsule 600 MG PO ×4 (08:28→20:12)
[2021-11-12] MEDS: duloxetine 60 mg Capsule PO ×2 (08:28→20:11)
--- NOTE | 2021-11-12 09:11 | P.NPUPN_ITS ---
Subjective NPU Subjective: The patient presents today reporting that she is feeling better. She reports that her significant other will be off tomorrow and that tomorrow would be a good day for discharge. We had a conversation about the plan including ERE which we are certain will start on Saturday but not sure when the a ctually resources will come to bear which we will find out tomorrow. We discussed that we will hopefully have some information about home health agencies that could be helpful though we did have some bad news on Saturday as some were saying her noncompliance rules her out for their services even though we tried to tell them the ERE program will be assisting in those noncompliance issues. But she feels better and we discussed the likelihood of discharge in the next 48 hours. Mental Status Exam MSE Comments: This is an overweight white female in hospital scrubs with limited grooming and eye contact.? With notable below-knee amputation on her left leg and a healing red scab area in the middle top of her forehead that is account development representative of past head-banging.? No abnormal movements except for psychomo tor retardation.? Cooperative with exam in no acute distress.? Speech was decreased rate and volume.? Mood described as better, I think we will go home tomorrow, congruent.? Thought process organized.? Thought content: Patient denied suicidal or homicidal ideation, there were no delusions reported or noted, she denied auditory or visual hallucinations.? Attention and concentration were improving and memory appeared more reliable but none were formally tested.? She is alert and oriented x3.? Insight and judgment are limited,?and impulse control is limited. Vitals/I&O/Wt Last Vital Signs Temp 98.9 F 11/11/21 21:54 Pulse 81 11/11/21 21:54 Resp 16 11/12/21 03:06 BP 122/72 11/11/21 21:54 Pulse Ox 96 11/11/21 21:54 Data NPU : 11/06/21 09:45 11/06/21 07:45 A&P Assessment and plan (1) Chronic pain: Status: Acute (2) Suicide ideation: Status: Acute (3) Acute flank pain: Status: Acute (4) Depression: Status: Acute Qualifiers: Depression Type: unspecified Qualified Code(s): F32.9 - Major depressive disorder, single episode, unspecified (5) Hyperglycemia: Status: Acute (6) Diabetes mellitus type 1: Status: Chronic Qualifiers: Diabetes mellitus complication status: with hyperglycemia Qualified Code(s): E10.65 - Type 1 diabetes mellitus with hyperglycemia (7) Diabetic gastroparesis: Status: Chronic (8) Anemia of chronic disease: Status: Acute (9) Below-knee amputation of left lower extremity: Status: Acute (10) Insomnia: Status: Acute Qualifiers: Insomnia type: due to medical condition Qualified Code(s): G47.01 - Insomnia due to medical condition (11) GERD (gastroesophageal reflux disease): Status: Acute Qualifiers: Esophagitis presence: without esophagitis Qualified Code(s): K21.9 - Gastro-esophageal reflux disease without esophagitis (12) ALEJANDRO (generalized anxiety disorder): Status: Acute (13) Noncompliance: Status: Acute (14) Diabetic ophthalmopathy: Status: Acute (15) Coronary artery disease: Status: Acute Qualifiers: Coronary Disease-Associated Artery/Lesion type: [place] artery [place] vs. transplanted heart: [place] heart Associated angina: without angina Qualifi ed Code(s): I25.10 - Atherosclerotic heart disease of [place] coronary artery without angina pectoris (16) Diabetic neuropathy: Status: Acute Qualifiers: Diabetes mellitus type: type 1 Diabetes mellitus complication detail: diabetic polyneuropathy Qualified Code(s): E10.42 - Type 1 diabetes mellitus with diabetic polyneuropathy (17) Amputation of toe of right foot: Status: Acute (18) Suicide attempt: Status: Acute (19) Low back pain: Status: Acute (20) Pain of amputation stump of left lower extremity: Status: Acute (21) History of financial difficulties: Status: Acute (22) Hypertension: Status: Chronic Qualifiers: Hypertension type: unspecified Qualified Code(s): I10 - Essential (primary) hypertension Plan This is a 41-year-old female with right flank pain possibly because of diabetic gastroparesis multiple admissions wanted to because of the pain Plan: 1.? Continue current medication.? Ativan 0.5 mg twice a day.? 2.? Continue every 15 minute checks for safety. 3.? Encourage individual, group and milieu therapies. 4.? Encourage sober living treatment after discharge at the highest level of care to which she is willing to commit. 5.? Excepted to the ERE program and we are awaiting word from any home health agencies with plan for discharge in the next 48 hours. Involuntary Hold Information 96 Hour Hold: 96 Hour Involuntary Admission: No 96 Hour Hold Ending Date: 09/15/21 96 Hour Hold Ending Time: 00:01 Attestations NPU Medical Necessity Statement*: Inpatient hospitalization is medically necessary and the clinically appropriate intervention at this time. We will monitor medications and make changes as indicated. Likely discharge is in the next 48 hours 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 Code Acute Residential Finish Carpenter for g Fwd Diagnoses Chronic pain G89.29 Suicide ideation R45.851 Acute flank pain R10.9 Depression F32.9 Depression Type: unspecified Hyperglycemia R73.9 Diabetes mellitus type 1 E10.65 Diabetes mellitus complication status: with hyperglycemia Diabetic gastroparesis E11.43; K31.84 Anemia of chronic disease D63.8 Below-knee amputation of left lower extremity S88.112A Insomnia G47.01 Insomnia type: due to medical condition GERD (gastroesophageal reflux disease) K21.9 Esophagitis presence: without esophagitis ALEJANDRO (generalized anxiety disorder) F41.1 Noncompliance Z91.19 Diabetic ophthalmopathy E11.39 Coronary artery disease I25.10 Coronary Disease-Associated Artery/Lesion type: [place] artery [place] vs. transplanted heart: [place] heart Associated angina: without angina Diabetic neuropathy E10.42 Diabetes mellitus type: type 1 Diabetes mellitus complication detail: diabetic polyneuropathy Amputation of toe of right foot S98.131A Suicide attempt T14.91XA Low back pain M54.5 Pain of amputation stump of left lower extremity T87.89; M79.605 History of financial difficulties Z87.898 Hypertension I10 Hypertension type: unspecified
[2021-11-12 10:06] VITALS: RESP 17
--- NOTE | 2021-11-12 11:06 | PC.NURSE ---
Pt appears to be sleeping. Pt has previous abrasion on forehead. Appears to be healing. Denies pain or needs. Denies SI/HI.
[2021-11-12 14:00] VITALS: BP 125/71; PULSE 88; RESP 17; TEMP 36.9; O2SAT 98
[2021-11-12 16:22] LABS: Glucose Point of Care 288 mg/dL (70-110)
[2021-11-12 16:22] LABS: Glucose Point of Care 111 mg/dL (70-110)
[2021-11-12 16:29] VITALS: RESP 16
[2021-11-12 20:09] LABS: Glucose Point of Care 242 mg/dL (70-110)
[2021-11-12] MEDS: insulin glargine 100 units/1 mL 40 UNIT SUBCUT (20:11)
[2021-11-12] MEDS: quetiapine 100 mg Tablet 200 MG PO (20:12)
[2021-11-12] MEDS: ropinirole 1 mg Tablet PO (20:12)
[2021-11-12 20:19] VITALS: BP 127/72; PULSE 82; RESP 18; TEMP 36.7; O2SAT 92
[2021-11-12 23:28] VITALS: RESP 18
[2021-11-13] MEDS: OLANZapine 5 mg ODT PO (00:50)
[2021-11-13 05:46] VITALS: RESP 18
[2021-11-13] MEDS: oxyCODONE-APAP 10-325 mg Tablet 1 TAB PO ×2 (05:46→13:40)
[2021-11-13 06:00] VITALS: BP 107/69; PULSE 85; RESP 17; TEMP 36.7; O2SAT 99
[2021-11-13 06:08] LABS: Glucose Point of Care 198 mg/dL (70-110)
[2021-11-13] MEDS: lidocaine 5% Patch 1 PATCH TOPICAL (08:11)
[2021-11-13] MEDS: insulin lispro 100 unit/1 mL SUBCUT ×2 (08:12→11:30)
[2021-11-13] MEDS: metoprolol succinate ER (24 HR) 25 mg Tablet 50 MG PO (08:15)
[2021-11-13] MEDS: duloxetine 60 mg Capsule PO (08:15)
[2021-11-13] MEDS: loperamide 2 mg Capsule PO (08:15)
[2021-11-13] MEDS: tamsulosin 0.4 mg Capsule PO (08:15)
[2021-11-13] MEDS: atorvastatin 40 mg Tablet PO (08:16)
[2021-11-13] MEDS: gabapentin 300 mg Capsule 600 MG PO ×2 (08:16→11:30)
[2021-11-13] MEDS: LORazepam 0.5 mg Tablet PO (08:16)
[2021-11-13] MEDS: ferrous sulfate EC 325 mg Tablet PO (08:16)
[2021-11-13] MEDS: ondansetron 4 MG Tablet 8 MG PO (08:16)
[2021-11-13] MEDS: amlodipine 10 mg Tablet PO (08:16)
[2021-11-13] MEDS: spironolactone 25 mg Tablet PO (08:16)
--- NOTE | 2021-11-13 08:16 | PC.NURSE ---
REFUSED SCHEDULED COLACE
--- NOTE | 2021-11-13 08:19 | PC.NURSE ---
PRN LOPERAMIDE 2 MG GIVEN PO PER PT C/O LOOSE STOOLS
[2021-11-13 11:21] LABS: Glucose Point of Care 191 mg/dL (70-110)
[2021-11-13] MEDS: hyDROXYzine 25 mg Capsule 50 MG PO (11:31)
--- NOTE | 2021-11-13 11:32 | PC.NURSE ---
PRN VISTARIL 50 MG GIVEN PO PER PT C/O ANXIETY
[2021-11-13] MEDS: ondansetron 4 MG Tablet PO (12:52)
--- NOTE | 2021-11-13 12:52 | PC.NURSE ---
PRN ZOFRAN 4 MG GIVEN PO PER PT C/O NAUSEA
[2021-11-13 13:40] VITALS: RESP 14; O2SAT 97
--- NOTE | 2021-11-13 14:22 | P.NPUDS_ITS ---
Diagnoses at Discharge Discharge Diagnosis (1) Chronic pain: Status: Acute (2) Suicide ideation: Status: Resolved (3) Acute flank pain: Status: Acute (4) Depression: Status: Acute Qualifiers: Depression Type: unspecified Qualified Code(s): F32.9 - Major depressiv e disorder, single episode, unspecified (5) Hyperglycemia: Status: Acute (6) Diabetes mellitus type 1: Status: Chronic Qualifiers: Diabetes mellitus complication status: with hyperglycemia Qualified Code(s): E10.65 - Type 1 diabetes mellitus with hyperglycemia Permanent problem details: diagnosed age 15, history of peripheral neuropathy, gastroparesis and nephropathy (7) Diabetic gastroparesis: Status: Chronic (8) Anemia of chronic disease: Status: Acute (9) Below-knee amputation of left lower extremity: Status: Acute (10) Insomnia: Status: Acute Qualifiers: Insomnia type: due to medical condition Qualified Code(s): G47.01 - Insomnia due to medical condition (11) GERD (gastroesophageal reflux disease): Status: Acute Qualifiers: Esophagitis presence: without esophagitis Qualified Code(s): K21.9 - Gastro-esophageal reflux disease without esophagitis (12) ALEJANDRO (generalized anxiety disorder): Status: Acute (13) Noncompliance: Status: Acute (14) Diabetic ophthalmopathy: Status: Acute (15) Coronary artery disease: Status: Acute Qualifiers: Coronary Disease-Associated Artery/Lesion type: [place] artery [place] vs. transplanted heart: [place] heart Associated angina: without angina Qualified Code(s): I25.10 - Atherosclerotic heart disease of [place] coronary artery without angina pectoris Permanent problem details: hx of stenting (16) Diabetic neuropathy: Status: Acute Qualifiers: Diabetes mellitus type: type 1 Diabetes mellitus complication detail: diabetic polyneuropathy Qualified Code(s): E10.42 - Type 1 diabetes mellitus with diabetic polyneuropathy (17) Amputation of toe of right foot: Status: Acute (18) Suicide attempt: Status: Acute (19) Low back pain: Status: Acute (20) Pain of amputation stump of left lower extremity: Status: Acute (21) History of financial difficulties: Status: Acute (22) Hypertension: Status: Chronic Qualifiers: Hypertension type: unspecified Qualified Code(s): I10 - Essential (primary) hypertension Reason for Visit Reason for Visit: SUICIDAL IDEATIONS Brief History: History of Present Illness Cherrie Solomon is a 41 year old female admitted through our emergency department with the following report: HPI: [41]yo patient w/ hx of SI/self-harm behavior BIBA for significant r side flank pain and desire for suicide.? Patient tells me that for the last day she has sustained significant right-sided flank pain.? Patient has history of renal colic.? Patient says that she can no longer take the pain started hitting her head against the wall. on arrival, the patient is AAOx3 and cooperative with my evaluation. No focal complaints of chest pain, shortness of breath, palpitations, N/V, focal GI/ complaints. Currently reports SI. No complaints of hallucinations. She was admitted to the neuropsychiatry unit for definitive treatment of these issues.? She says that she has been doing fairly well up until yesterday.? Her pain increased yesterday.? She was good..? She said that she has been trying to cut down some on her pain medications but had plenty.? She denies anything bad happening.? She denies any extra stress or increased activity.? She has been frequently putting her finger down her throat making herself throw up.? He says that is to divert her thoughts from the pain.? She says that her pain currently is about 8.? She was given some oxycodone at 1:30 AM but they say that she made herself throw up shortly afterwards and probably did not get much effect.HPI: [41]yo patient w/ hx of SI/self-harm behavior BIBA for significant r side flank pain and desire for suicide.? Patient tells me that for the last day she has sustained significant right-sided flank pain.? Patient has history of renal colic.? Patient says that she can no longer take the pain started hitting her head against the wall. on arrival, the patient is AAOx3 and cooperative with my evaluation. No focal complaints of chest pain, shortness of breath, palpitations, N/V, focal GI/ complaints. Currently reports SI. No complaints of hallucinations. Below is the discharge summary from her most recent admission: ? ? ? Ms Solomon i s a 41-year-old la dy with complex ? past medical histo ry primarily compl icated by psychiat radha disorder who a lso ? has hyperten kostas, obesity, med ication compliance , diabetes who pre sents ? emergency department for rossana ious concerns.? Ziggy mary called an ambula nce for ? mental h ealth evaluation w serenityh she reports i s due to abdominal pain.? ? She has a longstanding his tory of gastropare sis but reports th at this is ? worse .? She has general ized abdominal capri n which she has di fficulty ? charact erizing.? It got t o the point where she was banging he r head against ? o bjects and has a l aceration/injury a ssociated with thi s.? The patient ? arrived in [facility] by EMS.? She d oes not report any other significant ? changes in heal th, exacerbating, or alleviating fac tors.? She has had ? similar episode s in the past.? Ziggy mary reports complian ce with her ? medi cations. ???Onset (ago): unknown ?? Duration: constant ?? History of ruby e: Yes ?? Exacerba ting factors: othe r ?? Treatments pr ior to arrival: ph ysical restraints ?? If self harm: h as acted on plan ?She was admit marcela to ? the neuro psychiatric unit f or definitive keli tment of those iss ues.? She ? presen marcela this morning r eporting that she was having signifi cant nausea and I ? met her at the [facility] with a full basin of brownish emesis.? She ? [facility] initially re porting that she h ad run out of some of her medication ? including her p ain medication, on ce again we divide d this reflected a ? logistical situ ation where she thompson d not made the jeff ointment.? She onc e ? again is endor sing suicidal thou ghts secondary to not having access to her ? medicatio n and by being in that situation juany ng in so much pain .? Her ? blood sug ars were way out o f whack and took s ignificant work by the emergency ? d epartment to get h er medically clear ed for the unit bu t the challenge wa s ? her behavioral pattern once agai n with the police and the emergency department ? with head-banging, for ed emesis at times with a bloody mar k on her forehead ? from the fresh h ead-banging.? We d iscussed the criti melinda need for us to ? find some kind of psychosocial se tting and or safet y net for her so t hat we ? were [facility] inpatient hospi talizations that m ay reflect feeling suicidal and ? be ing are within but also reflect doin g things the same way and getting th e ? same result.? She denies any dif ference in her sit uation from the la st ? hospitalizati on, living in the same place having the same helpers e tc.? ? She can giv e no good reason w hy she had not mad e it to her appoin [facility] for ? pain m anagement initiall y saying that she had to go to a [facility] but we had ? given her appointm ent prior to ramya pedro.? There have be en no substantive ? changes since he r discharge summar y 09/25/2021.?? ? Hospital Course Hospital Course ?She slowly acclimated to the individual, group and milieu therapies provided.? She was restarted on her outpatient medications and responded well.? She tolerated these doses and showed steady improvement during her stay.? ? She was able to contract for safety outside hospital prior to discharge.? During the h ospitalization, patient had routine laboratory studies which were within normal limits except for few outliers.? Additionally there was a general medical evaluation which was also within normal limits and revealed no new acute processes. ?Discharge Summary: ?At the time of discharge, lethality was denied.? Documents were made to get her home health all available agencies have denied her and we are working on other avenues.? Mood and anxiety were well managed.? Patient endorsed a plan to follow-up with the aftercare recommendations of the treatment team.? Patient was evaluated and deemed to be absent credible lethality, and had achieved the maximum benefit from an inpatient hospitalization, so was discharged. Hospital Course Hospital Course She slowly acclimated to the individual, group and milieu therapies provided. Unfortunately once again psychiatry was challenged to manage her psychiatric concerns but the significant medical concerns that were likely not addressed secondary to the psychiatric nature of her presentation and behaviors. We were able to get her connection in the [facility] program as well as services through [facility] that should assist her in home medication management with the nurse going in. She was able to contract for safety outside the hospital prior to discharge. She had significant improvement from initial presentation. Exam we had significant resistance and work slowly getting her home health care. During the hospitalization, patient had routine laboratory studies which were within normal limits except for few outliers. Additionally there was a general medical evaluation which was also within normal limits and revealed no new acute processes. Discharge Summary: At the time of discharge, she denied psychosis or lethality. Mood and anxiety were well managed. Patient endorsed a plan to avoid all drugs of abuse and follow-up with the aftercare recommendations of the treatment team. Patient was evaluated and deemed to be absent credible lethality, and had achieved the maximum benefit from an inpatient hospitalization, so was discharged. Involuntary Hold Information 96 Hour Hold: 96 Hour Involuntary Admission: No 96 Hour Hold Ending Date: 09/15/21 96 Hour Hold Ending Time: 00:01 Mental Status Exam MSE Comments: This is an overweight white female in hospital scrubs with limited grooming and eye contact.? 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 No abnormal movements except for resolving psychomotor retardation.? Cooperative with exam in no acute distress.? Speech was mildly decreased rate and volume.? Mood described as better,? congruent.? Thought process organized.? Thought content: Patient denied suicidal or homicidal ideation, there were no delusions reported or noted, she denied auditory or visual hallucinations.? Attention and concentration were improving and memory appeared more reliable but none were formally tested.? She is alert and oriented x3.? Insight and judgment are limited,?and impulse control is limited. Discharge Data Studies Completed and Pending: Completed Studies During Hospitalization Category Date Time Status CT abdomen pelvis w con* [id number] Urge nt Cat Scan 11/03/21 14:[address] facial bones w o con* [id number] Urgen t Cat Scan 11/03/21 14:[address] head wo con* [id number] Urgent Cat Scan 11/03/21 14:55 Completed Radiology Impressions Abdomen/Pelvis CT 11/03/21 14:54 IMPRESSION: No acute findings. No significant change compared with 10/21/[address] 11/03/21 14:54 IMPRESSION: 1. Dental and periodontal disease 2. No facial fracture is identified. Head CT 11/03/21 14:55 IMPRESSION: Scalp hematoma. No acute intracranial finding. Laboratory Results WBC 8.8 10^3/uL (4.0- 10.0) 11/06/21 09:45 Corrected WBC Cancelled 11/06/21 07:45 RBC 3.40 10^6/uL (4.1 -5.3) L 11/06/21 09:45 Hgb 8.9 g/dL (11.5-15 .3) L 11/06/21 09:45 Hct 28.5 % (37.0-47.0 ) L 11/06/21 09:45 MCV 83.8 fl (81-99) 11/06/21 09:45 MCH 26.2 pg (28.0-34. 0) L 11/06/21 09:45 MCHC 31.2 g/dL (30.0-3 6.0) 11/06/21 09:45 RDW 15.6 % (12.1-15.1 ) H 11/06/21 09:45 Plt Count 313 10^3/cmm (130 -400) 11/06/21 09:45 MPV 8.5 fL (7.4-10.4) 11/06/21 09:45 Gran % Cancelled 11/06/21 07:45 Neut % (Auto) 60.0 % 11/06/21 09:45 Lymph % (Auto) 30.2 % 11/06/21 09:45 [place] % (Auto) 7.8 % 11/06/21 09:45 Eos % (Auto) 1.4 % 11/06/21 09:45 Baso % (Auto) 0.3 % 11/06/21 09:45 Neut # (Auto) 5.27 10^3/uL (1.8 -7.7) 11/06/21 09:45 Lymph # (Auto) 2.7 10^3/uL (0.8- 4.8) 11/06/21 09:45 [place] # (Auto) 0.7 10^3/uL (0.2- 0.9) 11/06/21 09:45 Eos # (Auto) 0.1 10^3/uL (0.0- 0.8) 11/06/21 09:45 Baso # (Auto) 0.0 10^3/uL (0.0- 0.1) 11/06/21 09:45 Absolute Gran (aut o) Cancelled 11/06/21 07:45 Nucleated RBC % (a uto) 0 % 11/06/21 09:45 Nucleated RBCs # 0.0 /100WBC 11/06/21 09:45 Specimen Type Arterial 11/03/21 18:35 Sample Site Brachial, left 11/03/21 18:35 ABG pH 7.46 (7.35-7.45) H 11/03/21 18:35 ABG pCO2 27.6 mmHg (35-45) L 11/03/21 18:35 ABG pO2 94.8 mmHg (80.0-1 00.0) 11/03/21 18:35 ABG HCO3 19.8 mmol/L (22-2 6) L 11/03/21 18:35 ABG O2 Saturation 98.2 11/03/21 18:35 ABG Base Excess -3.0 mmol/L (-2.0 -2.0) L 11/03/21 18:35 Steve Test Pos 11/03/21 18:35 A-a O2 Gradient 2.3 mmHg (5-10) L 11/03/21 18:35 Hematocrit 32.5 % (37-47) L 11/03/21 18:35 Hgb O2 Saturation 96.3 % (95-100) 11/03/21 18:35 Carboxyhemoglobin 1.1 %THgb (0.4-20 .1) 11/03/21 18:35 Methemoglobin 0.9 % (0.4-1.5) 11/03/21 18:35 Total Hemoglobin 10.6 g/dL (12-16) L 11/03/21 18:35 Sodium 144.0 mmol/L (131 -143) H 11/03/21 18:35 Potassium 3.8 mmol/L (3.5-5 .0) 11/03/21 18:35 Glucose 390.0 mg/dL (70-1 15) H 11/03/21 18:35 Ionized Calcium 1.2 mmol/L (1.1-1 .4) 11/03/21 18:35 O2 Delivery Device Room air 11/03/21 18:35 FiO2 21.0 % 11/03/21 18:35 Manager Combination ID Cak 11/03/21 18:35 Sodium 131 mmol/L (136-1 45) L 11/06/21 07:45 Potassium 3.9 mmol/L (3.5-5 .1) 11/06/21 07:45 Chloride 99 mmol/L (98-107 ) 11/06/21 07:45 Carbon Dioxide 22 mmol/L (22-29) 11/06/21 07:45 Anion Gap 13.9 (5-19) 11/06/21 07:45 BUN 27 mg/dL (6-20) H 11/06/21 07:45 Creatinine 1.9 mg/dL (0.5-0. 9) H 11/06/21 07:45 GFR Calculation 28.9 mL/min (90-1 30) L 11/06/21 07:45 Glucose 84 mg/dL (65-115) 11/06/21 07:45 POC Glucose 191 mg/dL (70-110 ) H 11/13/21 11:18 Calculated Osmolal ity 276 mOsm/kg (285- 295) L 11/06/21 07:45 Calcium 9.7 mg/dL (8.5-10 .5) 11/06/21 07:45 Total Bilirubin 0.2 mg/dL (0.15-1 .2) 11/06/21 07:45 AST 18 U/L (0-32) 11/06/21 07:45 ALT 28 U/L (0-33) 11/06/21 07:45 Alkaline Phosphata se 129 IU/L (35-105) H 11/06/21 07:45 Total Protein 6.1 g/dL (6.6-8.7 ) L 11/06/21 07:45 Albumin 3.8 g/dL (3.5-5.2 ) 11/06/21 07:45 Globulin 2.3 g/dL (1.3-4.6 ) 11/06/21 07:45 Lipase 26 U/L (13-60) 11/03/21 15:24 TSH 0.75 uIU/mL (0.27 -4.20) 11/03/21 15:24 Free T4 1.14 ng/dL (0.82- 1.77) 11/03/21 15:24 HCG, Qual Negative (Negati ve) 11/03/21 15:50 Urine Color Yellow (Yellow) 11/03/21 17:10 Urine Appearance Sl cloudy (CLEAR ) A 11/03/21 17:10 Urine pH 8 (5-7) H 11/03/21 17:10 Ur Specific Gravit y 1.010 (1.005-1.0 30) 11/03/21 17:10 Urine Protein 3+ (Negative) H 11/03/21 17:10 Urine Glucose (UA) 4+ (Normal) H 11/03/21 17:10 Urine Ketones 1+ (Negative) H 11/03/21 17:10 Urine Blood 3+ (Negative) H 11/03/21 17:10 Urine Nitrate Negative (Negati ve) 11/03/21 17:10 Urine Bilirubin Neg (Negative) 11/03/21 17:10 Prot Sulfosalicyli c Acd Positive (Negati ve) 11/03/21 17:10 Urine Urobilinogen Norm mg/dL (Negat sade) 11/03/21 17:10 Ur Leukocyte Estephania ase Negative (Negati ve) 11/03/21 17:10 Urine RBC 10-15 /hpf (0-2) H 11/03/21 17:10 Urine WBC 0-4 /hpf (0-5) H 11/03/21 17:10 Ur Squamous Epith Cells 15-25 /hpf (0-5) H 11/03/21 17:10 Amorphous Sediment Not Reportable 11/03/21 17:10 Urine Bacteria 4+ /hpf (NONE) H 11/03/21 17:10 Salicylates < 0.3 mg/dL (3-10 ) L 11/03/21 15:24 Urine Opiates Scre en Negative ng/mL (N egative) 11/03/21 17:10 Acetaminophen < 5.0 ug/mL (10-3 0) L 11/03/21 15:24 Ur Barbiturates Sc reen Negative ng/mL (N egative) 11/03/21 17:10 Ur Phencyclidine S crn Negative ng/mL (N egative) 11/03/21 17:10 Ur Amphetamines Sc reen Negative ng/mL (N egative) 11/03/21 17:10 U Benzodiazepines Scrn Positive ng/mL (N egative) H 11/03/21 17:10 Urine Cocaine Scre en Negative ng/mL (N egative) 11/03/21 17:10 U Marijuana (THC) Screen Positive ng/mL (N egative) H 11/03/21 17:10 Serum Ketones Negative (Negati ve) 11/03/21 15:50 Vitals: Last Vital Signs Temp 98.0 F 11/13/21 06:00 Pulse 85 11/13/21 06:00 Resp 14 11/13/21 13:40 BP 107/69 11/13/21 06:00 Pulse Ox 97 11/13/21 13:40 Discharge Plan Discharge Patient Disposition: Home Condition: Stable Prescriptions: Continued metoclopramide HCl 10 mg tablet 10 mg PO Q6H PRN (Reason: nausea and vomiting) 30 Days Qty: 120 2RF gabapentin 600 mg tablet 600 mg PO QID 30 Days Qty: 120 2RF Lantus Solostar U-100 Insulin 100 unit/mL (3 mL) insulin pen 40 unit SUBCUT BEDTIME 30 Days Qty: 15 2RF (DME) Comfort EZ Pen [place] 33 gauge x 1/4 needle See Rx Instructions .ROUTE .MEDSUPPLY Qty: 100 2RF Rx Instructions: As directed (DME) Blood Glucose Test Strip See Rx Instructions .Route Qty: 100 11RF Rx Instructions: Use with meter to test 3 times a day. spironolactone 25 mg Tablet 25 mg PO DAILY 30 Days Qty: 30 1RF atorvastatin 40 mg tablet 40 mg PO DAILY 30 Days Qty: 30 1RF ropinirole 1 mg tablet 1 mg PO BEDTIME 30 Days Qty: 30 1RF sennosides-docusate sodium [Senna-S] 8.6-50 mg tablet 1 tab-cap PO DAILY PRN (Reason: Constipation) 30 Days Qty: 30 1RF tamsulosin 0.4 mg capsule 0.4 mg PO DAILY 30 Days Qty: 30 1RF amlodipine 10 mg tablet 10 mg PO DAILY 30 Days Qty: 30 1RF docusate sodium [Colace] 100 mg capsule 100 mg PO BID 30 Days Qty: 60 1RF metoprolol succinate 25 mg tablet extended release 24 hr 50 mg PO DAILY 30 Days Qty: 60 1RF cyclobenzaprine 10 mg Tablet 10 mg PO BID PRN (Reason: Muscle Spasms) 30 Days Qty: 60 1RF trazodone 50 mg Tablet 50 mg PO BEDTIME PRN (Reason: Insomnia) 30 Days Qty: 30 1RF quetiapine 100 mg Tablet 200 mg PO BEDTIME 30 Days Qty: 60 1RF duloxetine 60 mg capsule,delayed release(DR/EC) 60 mg PO BID 0RF ondansetron 8 mg tablet,disintegrating 8 mg PO BID 0RF Discontinued oxycodone-acetaminophen 10-325 mg Tablet 1 tab PO Q6H PRN (Reason: Moderate Pain) 10 Days Qty: 40 0RF Discharge Orders: Discharge Order (Routine); Ordered 11/13/21 Ordered By: Sha Martinez Referrals: [facility] [Outside] ([facility] program) Angelic Martinez MD [Primary Care Provider] - Discharge Diet: Regular Discharge Activity: Resume usual activity Patient Instructions: Opioid Safety Discharge Attestations NPU Time Spent in Discharge Care*: greater than 30 min Specific Discharge Activities: Specific discharge activities: educating patient, discussing with pcp/other providers, documenting/other paperwork and evaluating patient/reviewing data Status at Discharge: Cognitive status at discharge: cognitively intact , Behavioral status at discharge: cooperative , 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 Code Acute Chg [facility] note Diagnoses Chronic pain G89.29 Suicide ideation R45.851 Acute flank pain R10.9 Depression F32.9 Depression Type: unspecified Hyperglycemia R73.9 Diabetes mellitus type 1 E10.65 Diabetes mellitus complication status: with hyperglycemia Diabetic gastroparesis E11.43; K31.84 Anemia of chronic disease D63.8 Below-knee amputation of left lower extremity S88.112A Insomnia G47.01 Insomnia type: due to medical condition GERD (gastroesophageal reflux disease) K21.9 Esophagitis presence: without esophagitis ALEJANDRO (generalized anxiety disorder) F41.1 Noncompliance Z91.19 Diabetic ophthalmopathy E11.39 Coronary artery disease I25.10 Coronary Disease-Associated Artery/Lesion type: [place] artery [place] vs. transplanted heart: [place] heart Associated angina: without angina Diabetic neuropathy E10.42 Diabetes mellitus type: type 1 Diabetes mellitus complication detail: diabetic polyneuropathy Amputation of toe of right foot S98.131A Suicide attempt T14.91XA Low back pain M54.5 Pain of amputation stump of left lower extremity T87.89; M79.605 History of financial difficulties Z87.898 Hypertension I10 Hypertension type: unspecified
== END 2021-11-13 16:02 | disposition home or self-care (01) | DRG 881 ==
LOC: ER 15:59 → NP 21:00
PROVIDERS: Admitting Provider Psychiatry & Neurology Psychiatry; Emergency Provider Emergency Medicine; PCP Family Medicine; Visit Provider Psychiatry & Neurology Psychiatry
DX: F32.9 Major depressive disorder, single episode, unspecified (principal); R45.851 Suicidal ideations; Z89.512 Acquired absence of left leg below knee; Z89.421 Acquired absence of other right toe(s); I25.10 Atherosclerotic heart disease of native coronary artery without angina pectoris; Z95.5 Presence of coronary angioplasty implant and graft; F17.210 Nicotine dependence, cigarettes, uncomplicated; S00.03XA Contusion of scalp, initial encounter; X83.8XXA Intentional self-harm by other specified means, initial encounter; E10.43 Type 1 diabetes mellitus with diabetic autonomic (poly)neuropathy; E10.65 Type 1 diabetes mellitus with hyperglycemia; E10.39 Type 1 diabetes mellitus with other diabetic ophthalmic complication; E10.40 Type 1 diabetes mellitus with diabetic neuropathy, unspecified; K31.84 Gastroparesis; G47.01 Insomnia due to medical condition; F41.1 Generalized anxiety disorder; K21.9 Gastro-esophageal reflux disease without esophagitis; D63.8 Anemia in other chronic diseases classified elsewhere; G89.29 Other chronic pain; Z79.4 Long term (current) use of insulin; M54.50 Low back pain, unspecified
CPT/HCPCS: 36415; 36416; 36600; 70450; 70486; 74177; 80051; 80053; 80306; 80307; 81001; 82009; 82330; 82805; 82962; 83690; 84439; 84443; 84703; 85025; 96361; 96372; 96374; 96375; 96376; 97150; 97161; 97165; 99285; J0360; J1170; J1200; J1630; J1815 ×2; J2060; J2405; J3490; J7030; J8597; Q0162; Q9967

== ENCOUNTER 2021-12-22 05:39 | Emergency (ER) | payer MEDICAID, SELFPAY ==
[2021-12-22] VITALS (24 sets, daily range): BP systolic 129–227; BP diastolic 75–147; PULSE 106–116; RESP 16–20; TEMP 36.6–36.7; O2SAT 95–100; BMI 28.0
--- NOTE | 2021-12-22 05:43 | ED_ITS ---
Documented by User: Donavon Delaney MD 12/22/21 05:45 HPI - Abdominal Pain General: Chief Complaint: Psychiatric Symptoms Stated Complaint: SI Time Seen by Provider: 12/22/21 05:42 Source: patient and EMS Mode of arrival: EMS Limitations: no limitations History of Present Illness: 41-year-old female who is very well-known to the ER states she been having abdominal pain over the last day. She was intubated and was just discharged from [facility] yesterday. States since she been discharged from [facility] she been having diffuse abdominal pain patient was combative with EMS and she states that she gets suicidal when she starts having pain like this. Patient is calm and cooperative currently. States her pain is sharp in nature rates it a 3 out of 10 no vomiting no diarrhea Associated Symptoms: Denies chills, dysuria and fever(s) Review of Systems Const: Denies: fever(s), chills, body aches or change in appetite Eyes: Denies: blurry vision or eye discomfort ENMT: Denies: throat pain or dental pain Card: Denies: chest pain Resp: Denies: dyspnea GI: Reports: abdominal pain : Denies: dysuria Musc: Denies: neck pain or back pain Skin/Breast: Denies: rash Neuro: Denies: headache(s) Psych: Reports: depression Keith/Lymph: Denies: easy bruising All/Imm: Denies: urticaria PFSH ED PFSH: Medical History (Updated 12/22/21 @ 11:38 by Adama Ceballos DO) Acute hyponatremia Acute renal failure Back pain C. 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 Nausea & vomiting Non-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 Psychiatric care PTSD (post-traumatic stress disorder) Self-harming behavior Self-harming behavior Suicidal ideation Suicidal ideation Toe infection UTI (urinary tract infection) Surgical History Below-knee amputation of left lower extremity H/O esophagogastroduodenoscopy (12/31/20) Bile reflux gastritis, grade B esophagitis H/O exploratory laparotomy x 3 History of amputation of right forefoot Hx of cholecystectomy Previous section x 3 S/P coronary artery stent placement x 1 S/P percutaneous endoscopic gastrostomy (PEG) tube placement Family History Unknown Diabetes extensive, type II Other CHF (congestive heart failure) Social History Smoking and tobacco status: current every day smoker Quit status (tobacco): has quit using tobacco Former quit date comment: 15 yrs ago Alcohol intake: former Former alcohol use details: 15 yrs ago Household members: spouse Marital status: Sexually active: Yes (1, ) Female Reproductive History: Spontaneous abortions: No Physical Exam Const: COMMON NORMALS: patient oriented x3 GENERAL APPEARANCE: disheveled HENMT: COMMON NORMALS: normocephalic and atraumatic HEAD & SCALP: normocephalic and atraumatic Eye: COMMON NORMALS: Equal, round and reactive pupils present and EOMs intact bilaterally PUPIL: Yes Equal, round and reactive pupils present Neck/C-Spine: COMMON NORMALS: full ROM and supple Chest: COMMONS NORMALS: normal inspection of the chest and normal palpation of entire chest wall Resp: COMMON NORMALS: normal respiratory effort, No retractions, No use of accessory muscles and clear to auscultation bilaterally AUSCULTATION: clear to auscultation bilaterally Cardio: COMMON NORMALS: regular rate, regular rhythm and No murmurs present (Cardio) RATE: regular rate RHYTHM: regular rhythm GI: COMMON NORMALS: Normal to inspection, nondistended, normoactive bowel sounds present, Soft to palpation, non-tender and no masses PALPATION: Yes Soft to palpation Extremity: COMMON NORMALS: normal to inspection and full ROM Neuro: COMMON NORMALS: patient oriented x3, moves all extremities and no focal motor deficits Psych: COMMON NORMALS: mental status grossly normal, Normal thought process pr esent and cooperative THOUGHT PROCESS: Normal thought process present Skin: COMMON NORMALS: no rashes or lesions noted and no wounds GENERAL SKIN EXAM: no rashes or lesions noted Course Vital Signs: Vital signs: Vital Signs Temperature 97.9 F 12/22/21 11:30 Pulse Rate 106 H 12/22/21 13:18 Respiratory Rate 18 12/22/21 13:18 Blood Pressure 180/97 12/22/21 11:45 Pulse Oximetry 100 12/22/21 13:18 MDM - Abdominal Pain Lab Data : 12/22/21 06:00 12/22/21 06:00 Labs/Radiology: Radiology Impressions Head CT 12/22/21 07:06 IMPRESSION: 1. No evidence of intracranial hemorrhage or mass effect. 2. RIGHT frontoparietal scalp hematoma 3. No acute intracranial findings. Abdomen/Pelvis CT 12/22/21 08:58 IMPRESSION: 1. Normal appendix in the RIGHT lower quadrant. 2. No obstructing renal or ureteral calculi. No hydronephrosis. 3. Small esophageal hiatal hernia. 4. Prior cholecystectomy. 5. Fat-containing umbilical hernia. 6. Mild RIGHT colon and cecal constipation. 7. No other significant findings. Laboratory Results WBC 9.3 10^3/uL (4.0-10.0) 12/22/21 06:00 RBC 4.02 10^6/uL (4.1-5.3) L 12/22/21 06:00 Hgb 10.7 g/dL (11.5-15.3) L 12/22/21 06:00 Hct 33.5 % (37.0-47.0) L 12/22/21 06:00 MCV 83.3 fl (81-99) 12/22/21 06:00 MCH 26.6 pg (28.0-34.0) L 12/22/21 06:00 MCHC 31.9 g/dL (30.0-36.0) 12/22/21 06:00 RDW 15.8 % (12.1-15.1) H 12/22/21 06:00 Plt Count 474 10^3/cmm (130-400) H 12/22/21 06:00 MPV 8.0 fL (7.4-10.4) 12/22/21 06:00 Neut % (Auto) 77.9 % 12/22/21 06:00 Lymph % (Auto) 14.1 % 12/22/21 06:00 [place] % (Auto) 7.2 % 12/22/21 06:00 Eos % (Auto) 0.1 % 12/22/21 06:00 Baso % (Auto) 0.3 % 12/22/21 06:00 Neut # (Auto) 7.22 10^3/uL (1.8-7.7) 12/22/21 06:00 Lymph # (Auto) 1.3 10^3/uL (0.8-4.8) 12/22/21 06:00 [place] # (Auto) 0.7 10^3/uL (0.2-0.9) 12/22/21 06:00 Eos # (Auto) 0.0 10^3/uL (0.0-0.8) 12/22/21 06:00 Baso # (Auto) 0.0 10^3/uL (0.0-0.1) 12/22/21 06:00 Nucleated RBC % (auto) 0 % 12/22/21 06:00 Nucleated RBCs # 0.0 /100WBC 12/22/21 06:00 Specimen Type Arterial 12/22/21 07:13 Sample Site Brachial, left 12/22/21 07:13 ABG pH 7.44 (7.35-7.45) 12/22/21 07:13 ABG pCO2 35.4 mmHg (35-45) 12/22/21 07:13 ABG pO2 87.8 mmHg (80.0-100.0) 12/22/21 07:13 ABG HCO3 23.9 mmol/L (22-26) 12/22/21 07:13 ABG O2 Saturation 97.8 12/22/21 07:13 ABG Base Excess 0.0 mmol/L (-2.0-2.0) 12/22/21 07:13 Steve Test Pos 12/22/21 07:13 A-a O2 Gradient 2.0 mmHg (5-10) L 12/22/21 07:13 Hematocrit 34.1 % (37-47) L 12/22/21 07:13 Hgb O2 Saturation 93.7 % (95-100) L 12/22/21 07:13 Carboxyhemoglobin 3.2 %THgb (0.4-20.1) 12/22/21 07:13 Methemoglobin 0.9 % (0.4-1.5) 12/22/21 07:13 Total Hemoglobin 11.1 g/dL (12-16) L 12/22/21 07:13 Sodium 138.0 mmol/L (131-143) 12/22/21 07:13 Potassium 3.8 mmol/L (3.5-5.0) 12/22/21 07:13 Glucose 282.0 mg/dL (70-115) H 12/22/21 07:13 Ionized Calcium 1.3 mmol/L (1.1-1.4) 12/22/21 07:13 O2 Delivery Device Room air 12/22/21 07:13 FiO2 21.0 % 12/22/21 07:13 Medical Physiologist ID Cak 12/22/21 07:13 Sodium 134 mmol/L (136-145) L 12/22/21 06:00 Potassium 4.0 mmol/L (3.5-5.1) 12/22/21 06:00 Chloride 96 mmol/L (98-107) L 12/22/21 06:00 Carbon Dioxide 24 mmol/L (22-29) 12/22/21 06:00 Anion Gap 18.0 (5-19) 12/22/21 06:00 BUN 26 mg/dL (6-20) H 12/22/21 06:00 Creatinine 1.9 mg/dL (0.5-0.9) H 12/22/21 06:00 GFR Calculation 28.9 mL/min (90-130) L 12/22/21 06:00 Glucose 287 mg/dL (65-115) H 12/22/21 06:00 Calculated Osmolality 293 mOsm/kg (285-295) 12/22/21 06:00 Lactic Acid 1.5 mmol/L (0.5-2.2) 12/22/21 07:22 Calcium 10.4 mg/dL (8.5-10.5) 12/22/21 06:00 Magnesium 2.2 mg/dL (1.7-2.3) 12/22/21 06:00 Total Bilirubin 0.3 mg/dL (0.15-1.2) 12/22/21 06:00 AST 13 U/L (0-32) 12/22/21 06:00 ALT 21 U/L (0-33) 12/22/21 06:00 Alkaline Phosphatase 157 IU/L (35-105) H 12/22/21 06:00 Ammonia 21 umol/L (11-51) 12/22/21 07:22 Troponin T Baseline 48 ng/L (0-10) H 12/22/21 07:22 Troponin T 120 Minute 47.86 ng/L (0-10) H 12/22/21 09:12 Delta Troponin T -0.14 ABS# (0-10) L 12/22/21 09:12 Total Protein 8.0 g/dL (6.6-8.7) 12/22/21 06:00 Albumin 4.8 g/dL (3.5-5.2) 12/22/21 06:00 Globulin 3.2 g/dL (1.3-4.6) 12/22/21 06:00 Lipase 29 U/L (13-60) 12/22/21 06:00 Urine Color [place] (Yellow) 12/22/21 08:46 Urine Appearance Sl hazy (CLEAR) 12/22/21 08:46 Urine pH 5 (5-7) 12/22/21 08:46 Ur Specific [place] 1.020 (1.005-1.030) 12/22/21 08:46 Urine Protein 3+ (Negative) H 12/22/21 08:46 Urine Glucose (UA) 2+ (Normal) H 12/22/21 08:46 Urine Ketones 1+ (Negative) H 12/22/21 08:46 Urine Blood Neg (Negative) 12/22/21 08:46 Urine Nitrate Negative (Negative) 12/22/21 08:46 Urine Bilirubin 2+ (Negative) H 12/22/21 08:46 Urine Urobilinogen 4 mg/dL (Negative) H 12/22/21 08:46 Ur Leukocyte Esterase Negative (Negative) 12/22/21 08:46 Urine RBC Rare /hpf (0-2) 12/22/21 08:46 Urine WBC 0-4 /hpf (0-5) H 12/22/21 08:46 Ur Squamous Epith Cells 0-4 /hpf (0-5) H 12/22/21 08:46 Ur Transition Epith Cell 0-4 /hpf 12/22/21 08:46 Amorphous Sediment 3+ /hpf 12/22/21 08:46 Urine Bacteria 1+ /hpf (NONE) H 12/22/21 08:46 Hyaline Casts Rare /lpf 12/22/21 08:46 Urine Mucus Trace /hpf 12/22/21 08:46 Salicylates < 0.3 mg/dL (3-10) L 12/22/21 06:00 Urine Opiates Screen Positive ng/mL (Negative) H 12/22/21 08:46 Acetaminophen < 5.0 ug/mL (10-30) L 12/22/21 06:00 Ur Barbiturates Screen Negative ng/mL (Negative) 12/22/21 08:46 Ur Phencyclidine Scrn Negative ng/mL (Negative) 12/22/21 08:46 Ur Amphetamines Screen Negative ng/mL (Negative) 12/22/21 08:46 U Benzodiazepines Scrn Positive ng/mL (Negative) H 12/22/21 08:46 Urine Cocaine Screen Negative ng/mL (Negative) 12/22/21 08:46 U Marijuana (THC) Screen Positive ng/mL (Negative) H 12/22/21 08:46 Ethyl Alcohol < 10 mg/dL (0-10) 12/22/21 06:00 Serum Ketones Negative (Negative) 12/22/21 06:00 Discharge Plan Discharge Patient Disposition: Home Clinical Impression: Chronic pain Condition: Stable Prescriptions: New hydrocodone-acetaminophen 5-325 mg tablet 1 tab PO Q6H PRN (Reason: pain) Qty: 20 0RF No Action metoclopramide HCl 10 mg tablet 10 mg PO Q6H PRN (Reason: nausea and vomiting) 30 Days Qty: 120 2RF gabapentin 600 mg tablet 600 mg PO QID 30 Days Qty: 120 2RF Lantus Solostar U-100 Insulin 100 unit/mL (3 mL) insulin pen 40 unit SUBCUT BEDTIME 30 Days Qty: 15 2RF (DME) Comfort EZ Pen [place] 33 gauge x 1/4 needle See Rx Instructions .ROUTE .MEDSUPPLY Qty: 100 2RF Rx Instructions: As directed (DME) Blood Glucose Test Strip See Rx Instructions .Route Qty: 100 11RF Rx Instructions: Use with meter to test 3 times a day. atorvastatin 40 mg tablet 40 mg PO DAILY 30 Days Qty: 30 1RF ropinirole 1 mg tablet 1 mg PO BEDTIME 30 Days Qty: 30 1RF sennosides-docusate sodium [Senna-S] 8.6-50 mg tablet 1 tab-cap PO DAILY PRN (Reason: Constipation) 30 Days Qty: 30 1RF tamsulosin 0.4 mg capsule 0.4 mg PO DAILY 30 Days Qty: 30 1RF amlodipine 10 mg tablet 10 mg PO DAILY 30 Days Qty: 30 1RF docusate sodium [Colace] 100 mg capsule 100 mg PO BID 30 Days Qty: 60 1RF metoprolol succinate 25 mg tablet extended release 24 hr 50 mg PO DAILY 30 Days Qty: 60 1RF cyclobenzaprine 10 mg Tablet 10 mg PO BID PRN (Reason: Muscle Spasms) 30 Days Qty: 60 1RF quetiapine 100 mg Tablet 200 mg PO BEDTIME 30 Days Qty: 60 1RF ondansetron 8 mg tablet,disintegrating 8 mg PO BID PRN (Reason: Nausea And Vomiting) 0RF Cymbalta 30 mg Capsule,Delayed Release(Dr/Ec) 30 mg PO BID 0RF hydrocodone-acetaminophen 5-325 mg tablet 1 tab PO Q4H PRN (Reason: Pain) 0RF Novolog Flexpen U-100 Insulin 100 unit/mL (3 mL) insulin pen 10 unit SUBCUT TID 0RF trazodone 50 mg tablet See Rx Instructions .ROUTE .COMPLEX 0RF Rx Instructions: 50mg po hs for 3 days, 100mg po hs for 3 days then 150mg hs spironolactone 25 mg tablet 25 mg PO BID 0RF Discharge Orders: Discharge ED (Routine); Ordered 12/22/21 Ordered By: Adama Ceballos Patient Instructions: Opioid Safety Activity Restrictions/Additional Instructions: Recommend he follow-up with your primary care doctor and establish with a pain clinic. Sign Out Sign Out Data: Patient Sign Out occurred on 12/22/21 at 06:07. Patient's care was discussed, and care was transferred from to Adama Ceballos DO. 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 Code ED Thaw Shed Heater Tender for Chg Fwd Exam Comprehensive Documented by User: Adama Ceballos DO 12/22/21 16:30 HPI - Abdominal Pain General: Chief Complaint: Psychiatric Symptoms Stated Complaint: SI Time Seen by Provider: 12/22/21 05:42 [facility] ED PFSH: Medical History (Updated 12/22/21 @ 11:38 by Adama Ceballos DO) Acute hyponatremia Acute renal failure Back pain C. 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 Nausea & vomiting Non-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 Psychiatric care PTSD (post-traumatic stress disorder) Self-harming behavior Self-harming behavior Suicidal ideation Suicidal ideation Toe infection UTI (urinary tract infection) Surgical History Below-knee amputation of left lower extremity H/O esophagogastroduodenoscopy (12/31/20) Bile reflux gastritis, grade B esophagitis H/O exploratory laparotomy x 3 History of amputation of right forefoot Hx of cholecystectomy Previous section x 3 S/P coronary artery stent placement x 1 S/P percutaneous endoscopic gastrostomy (PEG) tube placement Family History Unknown Diabetes extensive, type II Other CHF (congestive heart failure) Social History Smoking and tobacco status: current every day smoker Quit status (tobacco): has quit using tobacco Former quit date comment: 15 yrs ago Alcohol intake: former Former alcohol use details: 15 yrs ago Household members: spouse Marital status: Sexually active: Yes (1, ) Course Vital Signs: Vital signs: Vital Signs Temperature 97.9 F 12/22/21 11:30 Pulse Rate 106 H 12/22/21 13:18 Respiratory Rate 18 12/22/21 13:18 Blood Pressure 180/97 12/22/21 11:45 Pulse Oximetry 100 12/22/21 13:18 MDM - Abdominal Pain Medical Decision Making Patient continues to try to hit her self she says that her frustration because of her chronic pain. Dr. Lynch reviewed the chart with him and really do not have any indication to admit she has had thorough work-up multiple times there is no acute issues going on at this time. Talk to psychiatry did not feel they can help much because she usually is admitted her pain medications were titrated she gets better is discharged home and ultimately returns. She does not really participate in any psychiatric issues. Dr. Richards was consulted see his note on the chart. His note states she does not he does not recommend that she be admitted to psychiatry unit as there is no perceived benefit. Based on this we will discharge patient home we will discharge her home with hydrocodone to use 1 p.o. every 6 hours as needed recommend she follow-up with her primary care doc tor with the pain clinic. Medical Records I reviewed the patient's medical records. Lab Data I reviewed the patient's lab results. : 12/22/21 06:00 12/22/21 06:00 Labs/Radiology: Radiology Impressions Head CT 12/22/21 07:06 IMPRESSION: 1. No evidence of intracranial hemorrhage or mass effect. 2. RIGHT frontoparietal scalp hematoma 3. No acute intracranial findings. Abdomen/Pelvis CT 12/22/21 08:58
[2021-12-22] MEDS: LORazepam 2 mg/mL INJ 1 mL IM (05:59)
[2021-12-22 06:07] LABS: Basophils % 0.3 %; Eosinophils % 0.1 %; Hematocrit 33.5 % (37.0-47.0); Hemoglobin 10.7 g/dL (11.5-15.3); Lymphocytes # 1.3 10^3/uL (0.8-4.8); Lymphocytes % 14.1 %; Mean Corpuscular HGB Conc 31.9 g/dL (30.0-36.0); Mean Corpuscular Hemoglobin 26.6 pg (28.0-34.0); Mean Corpuscular Volume 83.3 fl (81-99); Monocytes # 0.7 10^3/uL (0.2-0.9); Monocytes % 7.2 %; Neutrophils # 7.22 10^3/uL (1.8-7.7); Neutrophils % 77.9 %; Nucleated Red Blood Cells % 0 %; Platelet Count 474 10^3/cmm (130-400); Red Blood Count 4.02 10^6/uL (4.1-5.3); Red Cell Distribution Width 15.8 % (12.1-15.1); White Blood Count 9.3 10^3/uL (4.0-10.0)
[2021-12-22] MEDS: ziprasidone hcl 20 mg Capsule PO (06:15)
[2021-12-22 06:29] LABS: Acetaminophen < 5.0 ug/mL (10-30); Alanine Aminotransferase 21 U/L (0-33); Albumin Level 4.8 g/dL (3.5-5.2); Alcohol Level < 10 mg/dL (0-10); Alkaline Phosphatase 157 IU/L (35-105); Aspartate Amino Transferase 13 U/L (0-32); Blood Urea Nitrogen 26 mg/dL (6-20); Calcium 10.4 mg/dL (8.5-10.5); Carbon Dioxide 24 mmol/L (22-29); Chloride 96 mmol/L (98-107); Globulin 3.2 g/dL (1.3-4.6); Glomerular Filtration Rate 28.9 mL/min (90-130); Glucose 287 mg/dL (65-115); Lipase 29 U/L (13-60); Osmolality Calculated 293 mOsm/kg (285-295); Salicylate < 0.3 mg/dL (3-10); Sodium 134 mmol/L (136-145); Total Bilirubin 0.3 mg/dL (0.15-1.2)
--- NOTE | 2021-12-22 06:55 | PC.NURSE ---
pt restraints pt attempting to hit head with both hands; when hands were restrained by rn and security pt attempting to hit head on knee. pt given po meds and iv ativan at this time and 3 point restraints applied. 2 finger width space between pt skin and restraint and pulses and <3 second cap refill are present in all three limbs. pt still attempting to scratch self and hit head.
--- NOTE | 2021-12-22 07:06 | ECG_ITS ---
[facility] Test Date: 2021-12-22 Pat Name: Cherrie Solomon Department: Room: Gender: Female Shoe Lacer: : 1980 Requested By: Adama Clancy Order Number: [id number] Jeff MD: Joseluis Trcay M.D. Measurements Intervals [place] Rate: 113 P: 5 TN: 134 QRS: 1 QRSD: 93 T: 70 QT: 322 QTc: 442 Interpretive Statements SINUS TACHYCARDIA POSSIBLE INFERIOR MYOCARDIAL INFARCTION , OF INDETERMINATE AGE [30 ms Q WAVE IN II/aVF] Compared to ECG 09/09/2021 19:02:37 Myocardial infarct finding now present Electronically Signed On 12-22-2021 20:18:42 CDT by Joseluis Tracy M.D. [id number]
--- NOTE | 2021-12-22 07:06 | CT_ITS ---
WS: [id number] CT HEAD TECHNIQUE: Noncontrast CT of the head obtained from the skullbase to the vertex. CLINICAL INFORMATION: altered mental status COMPARISON: CT November 03, 2021 DLP: 1086.[address] scans at [facility] use at least one of these dose optimization techniques: automated e xposure control; mA and/or kV adjustment per patient size (includes targeted exams where dose is matc hed to clinical indication); or iterative reconstruction. FINDINGS: No evidence of intracranial hemorrhage or mass effect. Ventricular system and basal cisterns are oliva nt. RIGHT frontoparietal scalp hematoma similar to previous. No extra-axial fluid collections. No melida dence of mass or mass effect. Normal nails-white differentiation. Paranasal sinuses and mastoid air cells are well aerated. CT/CT head wo con* [id number] IMPRESSION: 1. No evidence of intracranial hemorrhage or mass effect. 2. RIGHT frontoparietal scalp hematoma 3. No acute intracranial findings.
[2021-12-22] MEDS: LORazepam 2 mg/mL INJ 1 mL IVP ×2 (07:12→08:58)
--- NOTE | 2021-12-22 07:23 | PC.NURSE ---
PT attempting to bang head against bed rails. PT also attempting to hit or knee self in the head. MD notified. PT placed in 4 point restraint per orders. PT states she would rather kill herself than live with the pain. PT states she is having right sided abdominal pain.
[2021-12-22 07:25] LABS: ABG PCO2 35.4 mmHg (35-45); ABG PH Result 7.44 (7.35-7.45); Arterial Blood Gas Hematocrit 34.1 % (37-47); Blood Gas Allen Test Pos; Blood Gas Operator Identificat CAK; Blood Gas Sample Site Brachial, left; Blood Gas Sample Type Arterial; Carboxyhemoglobin 3.2 %THgb (0.4-20.1); HCO3 ABG 23.9 mmol/L (22-26); HGB O2 Sat 93.7 % (95-100); Ionized Calcium Level - ABG 1.3 mmol/L (1.1-1.4); Methemoglobin 0.9 % (0.4-1.5); Oxygen Device ROOM AIR; Oxygen Saturation ABG 97.8; PO2 ABG 87.8 mmHg (80.0-100.0); Potassium Level - ABG 3.8 mmol/L (3.5-5.0); Total Hemoglobin 11.1 g/dL (12-16)
[2021-12-22 07:37] LABS: Ketone (Acetest) Serum Negative (Negative)
[2021-12-22] MEDS: sodium chloride 0.9% 1,000 ML 999 ML IV ×2 (07:39→09:30)
[2021-12-22 07:42] LABS: Magnesium 2.2 mg/dL (1.7-2.3)
[2021-12-22 07:47] LABS: Lactic Sepsis W/Reflex 1.5 mmol/L (0.5-2.2)
[2021-12-22 07:48] LABS: Ammonia 21 umol/L (11-51)
[2021-12-22 07:49] LABS: Troponin(5th) Baseline 48 ng/L (0-10)
--- NOTE | 2021-12-22 08:58 | CT_ITS ---
WS: [id number] CT ABDOMEN PELVIS TECHNIQUE: Noncontrast CT of the abdomen and pelvis with coronal and sagittal reformatted images. CLINICAL INFORMATION: r side pain COMPARISON: 11/03/21 DLP: 1422.[address] scans at [facility] use at least one of these dose optimization techniques: automated e xposure control; mA and/or kV adjustment per patient size (includes targeted exams where dose is matc hed to clinical indication); or iterative reconstruction. FINDINGS: Normal appendix in RIGHT lower quadrant. No evidence of acute appendicitis. Lung bases are well aerat ed. Cholecystectomy clips. Adrenal glands are normal. No hydronephrosis in either kidney. No obstruct ing renal or ureteral calculi. Normal noncontrast spleen. Small esophageal hiatal hernia. Normal caliber abdominal aorta. Mild aorti c calcification. Wide mouth fat-containing umbilical hernia. Normal sigmoid colon. No evidence of hig h-grade small or large bowel obstruction. Mild lumbar curve. Normal lumbar spine. CT/CT abdomen pelvis con [id number] IMPRESSION: 1. Normal appendix in the RIGHT lower quadrant. 2. No obstructing renal or ureteral calculi. No hydronephrosis. 3. Small esophageal hiatal hernia. 4. Prior cholecystectomy. 5. Fat-containing umbilical hernia. 6. Mild RIGHT colon and cecal constipation. 7. No other significant findings.
--- NOTE | 2021-12-22 09:06 | ECG_ITS ---
[facility] Test Date: 2021-12-22 Pat Name: Cherrie Solomon Department: Room: Gender: Female M[employer]ainer [employer]: : 1980 Requested By: Adama Clancy Order Number: [id number] Jeff MD: Joseluis Tracy M.D. Measurements Intervals [place] Rate: 109 P: -11 ID: 140 QRS: 1 QRSD: 93 T: 55 QT: 332 QTc: 447 Interpretive Statements SINUS TACHYCARDIA ABNORMAL RHYTHM ECG Compared to ECG 12/22/2021 07:22:28 Myocardial infarct finding no longer present Electronically Signed On 12-22-2021 20:25:26 CDT by Joseluis Tracy M.D. [id number]
[2021-12-22 09:07] LABS: Amphetamines Screen Urine Negative (Negative); Barbiturates Screen Urine Negative (Negative); Benzodiazepines Screen Urine Positive (Negative); Cocaine Screen Urine Negative (Negative); Opiate Screen Urine Positive (Negative); PCP Screen Urine Negative (Negative); THC Screen Urine Positive (Negative)
[2021-12-22 09:08] LABS: Bilirubin Urine 2+ (Negative); Blood Urine Neg (Negative); Glucose Urine UA 2+ (Normal); Ketones Urine 1+ (Negative); Leukocyte Esterase Urine Negative (Negative); Nitrate Urine Negative (Negative); Protein Urine 3+ (Negative); Urine Appearance SL Hazy (CLEAR); Urine Color Orange (Yellow); Urobilinogen Urine 4 mg/dL (Negative); pH Urine 5 (5-7)
[2021-12-22 09:20] LABS: Add Urine Microscopic? YES
[2021-12-22 09:21] LABS: Amorphous Sediment Urine 3+ /hpf; Bacteria Urine 1+ /hpf; Mucus Urine TRACE /hpf; RBC Urine RARE /hpf (0-2); Squamous Epithelial Cell Urine 0-4 /hpf (0-5); Transitional Epi Cells Urine 0-4 /hpf; WBC Urine 0-4 /hpf (0-5)
[2021-12-22 09:22] LABS: Add Urine Culture? No; Hyaline Casts Urine RARE /lpf
[2021-12-22 09:40] LABS: Troponin 5 2HR 47.86 ng/L (0-10)
[2021-12-22 09:42] LABS: Troponin 5 2HR Delta -0.14 ABS# (0-10)
--- NOTE | 2021-12-22 11:04 | W.PM.PSYCONS ---
Providers/Reason for Consult Consulting Physican/Specialty*: Kris Thompson MD/Psychiatist Reason for Consult*: Patient says she wants to Psych Consult HPI History of Present Illness Cherrie Solomon is a 41 year old female who comes to the emergency department with the following report: 41-year-old female who is very well-known to the ER states she been having abdominal pain over the last day.? She was intubated and was just discharged from [place] yesterday.? States since she been discharged from [facility] she been having diffuse abdominal pain patient was combative with EMS and she states that she gets suicidal when she starts having pain like this.? Patient is calm and cooperative currently.? States her pain is sharp in nature rates it a 3 out of 10 no vomiting no diarrhea Associated Symptoms: Denies chills, dysuria and fever(s) She has been admitted to the neuropsychiatry unit numerous times over the last year. It is always for the same reason. Her pain is worse and she wants to kill herself because the pain is so bad. She tries to injure herself by banging her head on things. She frequently needs to be restrained. We give her Ativan to calm her down and try to get her pain under control. She does not attend groups and there is no benefit of her being on a psychiatric unit. We do not change her psychiatric medications but just give enough Ativan to calm her down so that she is sedated until her pain is under control. Today she tells me that she has been doing fairly well for the last month but that her pain became worse and she wants to . She has been trying to injured herself. She has been stabbing herself with a fork and banging her head. She always has a cut on her forehead when she comes in like this. Meds Home Medications and Allergies Home Medications Medication Instructions Recorded Confirmed Last Taken Type gabapentin 600 mg tablet 600 mg PO QID 30 Days #120 tab 07/03/21 11/03/21 10/20/21 Rx insulin glargine 100 unit/mL (3 40 unit (0.4 mL) SUBCUT BEDTIME 30 07/03/21 11/03/21 10/20/21 Rx mL) subcutaneous pen (Lantus Days #15 ml Solostar U-100 Insulin) metoclopramide HCl 10 mg tablet 10 mg PO Q6H PRN 30 Days #120 tab 07/03/21 11/03/21 Unknown Rx pen needle, diabetic 33 gauge x #100 ea 07/03/21 11/03/21 Unknown Rx 1/4 (Comfort EZ Pen [place]) blood sugar diagnostic (Blood #100 ea 07/12/21 11/03/21 Unknown Rx Glucose Test) amlodipine 10 mg tablet 10 mg PO DAILY 30 Days #30 tab 09/25/21 12/22/21 10/20/21 Rx atorvastatin 40 mg tablet 40 mg PO DAILY 30 Days #30 tab 09/25/21 11/03/21 10/20/21 Rx docusate sodium 100 mg capsule 100 mg PO BID 30 Days #60 cap 09/25/21 11/03/21 10/20/21 Rx (Colace) metoprolol succinate 25 mg 50 mg PO DAILY 30 Days #60 tab 09/25/21 11/03/21 10/20/21 Rx tablet,extended release 24 hr ropinirole 1 mg tablet 1 mg PO BEDTIME 30 Days #30 tab 09/25/21 11/03/21 10/20/21 Rx sennosides 8.6 mg-docusate sodium 1 tab-cap PO DAILY PRN 30 Days #30 09/25/21 11/03/21 10/20/21 Rx 50 mg tablet (Senna-S) tab tamsulosin 0.4 mg capsule 0.4 mg PO DAILY 30 Days #30 cap 09/25/21 11/03/21 10/20/21 Rx cyclobenzaprine 10 mg tablet 10 mg PO BID PRN 30 Days #60 tab 10/27/21 11/03/21 Unknown Rx quetiapine 100 mg tablet 200 mg PO BEDTIME 30 Days #60 tab 10/27/21 11/03/21 Unknown Rx ondansetron 8 mg disintegrating 8 mg PO BID 11/03/21 11/03/21 Unknown History tablet duloxetine 30 mg capsule,delayed 30 mg PO BID 12/22/21 12/22/21 Unknown History release (Cymbalta) hydrocodone 5 mg-acetaminophen 325 1 tab PO Q4H PRN 12/22/21 12/22/21 Unknown History mg tablet insulin aspart U-100 100 unit/mL 10 unit SUBCUT TID 12/22/21 12/22/21 Unknown History (3 mL) subcutaneous pen (Novolog Flexpen U-100 Insulin aspart) spironolactone 25 mg tablet 25 mg PO BID 12/22/21 12/22/21 Unknown History trazodone 50 mg tablet See Rx Instructions .ROUTE .COMPLEX 12/22/21 12/22/21 Unknown History Allergies Allergy/AdvReac Type Severity Reaction Status Date / Time morphine Allergy ALGY-Difficulty Verified 11/03/21 15:20 Breathing PFSH NPU PFSH: Medical History (Updated 12/22/21 @ 11:11 by Kris Thompson MD) Acute hyponatremia Acute renal failure Back pain C. 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 Nausea & vomiting Non-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 Psychiatric care PTSD (post-traumatic stress disorder) Self-harming behavior Self-harming behavior Suicidal ideation Suicidal ideation Toe infection UTI (urinary tract infection) Surgical History Below-knee amputation of left lower extremity H/O esophagogastroduodenoscopy (12/31/20) Bile reflux gastritis, grade B esophagitis H/O exploratory laparotomy x 3 History of amputation of right forefoot Hx of cholecystectomy Previous section x 3 S/P coronary artery stent placement x 1 S/P percutaneous endoscopic gastrostomy (PEG) tube placement Family History Unknown Diabetes extensive, type II Other CHF (congestive heart failure) Social History Smoking and tobacco status: current every day smoker Quit status (tobacco): has quit using tobacco Former quit date comment: 15 yrs ago Alcohol intake: former Former alcohol use details: 15 yrs ago Household members: spouse Marital status: Sexually active: Yes (1, ) Female Reproductive History: Spontaneous abortions: No Mental Status Exam MSE Comments: This is an overweight white female in hospital scrubs with limited grooming and eye contact.? With notable below-knee amputation on her left leg and a healing bloody scab area in the middle top of her forehead that is patient account representative of currenthead-banging.? No abnormal movements except for psychomotor agitation.? Cooperative with exam in no acute distress.? Speech was decreased rate and volume.? Mood described as depressed because of the pain, affect congruent.? Thought process organized.? Thought content: Patient says she is suicidal because of her pain. She denies homicidal ideation, there were no delusions reported or noted, she denied auditory or visual hallucinations.? Attention and concentration appears to be normal and memory appeared more reliable but none were formally tested.? She is alert and oriented. Insight and judgment are limited,?and impulse control is limited. Vitals/I&O/Wt Last Vital Signs Temp 97.9 F 12/22/21 08:00 Pulse 110 H 12/22/21 10:45 Resp 16 12/22/21 10:45 BP 183/122 12/22/21 10:45 Pulse Ox 100 12/22/21 10:45 12/21/21 12/22/21 12/22/21 22:59 06:59 14:59 Intake Total 1000 / 1000 Balance 1000 / 1000 Weight last 48 hrs Weight 86.183 kg Data NPU : 12/22/21 06:00 12/22/21 06:00 Micro: Microbiology 12/22/21 07:49 Blood Culture - Preliminary Blood SPECIMEN COLLECTED 12/22/21 07:43 Blood Culture - Preliminary Blood SPECIMEN COLLECTED Microbiology 12/22/21 07:49 Blood Blood Culture - Preliminary SPECIMEN COLLECTED 12/22/21 07:43 Blood Blood Culture - Preliminary SPECIMEN COLLECTED A&P Assessment and plan (1) Chronic pain: Status: Acute (2) Acute flank pain: Status: Acute (3) Suicidal ideation: Status: Acute Plan 41-year-old female who comes in frequently because her pain is worse and she wants to . It is unclear what causes these exacerbations in her pain. She says that she has access to her pain medications. When we put her back on her regular dose of [place] she does well and her pain is decreased. We do not feel that she is appropriate for the psychiatry unit because all we do is manage her pain and give her Ativan until her pain is managed. She does not get any benefit from the milieu of the psychiatric unit. She stays in bed. Involuntary Hold Information 96 Hour Hold: 96 Hour Involuntary Admission: No 96 Hour Hold Ending Date: 09/15/21 96 Hour Hold Ending Time: 00:01 Attestations NPU Medical Necessity Statement*: See attending physician's notes about medical necessity. It does seem that she needs to be in the hospital but not appropriate for a psychiatric unit. 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 Code Acute [employer] for [employer] Diagnoses Chronic pain G89.29 Acute flank pain R10.9 Suicidal ideation R45.851
--- NOTE | 2021-12-22 11:05 | PC.PHAR ---
Addendum entered by Gisela Irvin 12/22/21 11:07: medications entered are what izabela and leonel lemus filled for the pt notes are made in the pharmacy comments Original Note: pt unable to verify medications-pt states her takes care of her medications-called pts prem no answer [phone]
--- NOTE | 2021-12-22 11:55 | PC.NURSE ---
Physician instructed to remove 4 point restraint.
--- NOTE | 2021-12-22 13:11 | PC.NURSE ---
Witnessed pt sliding herself to the floor. Pt lowered herself safely to the floor. When asked where she was going, pt stated down here . No issues noted.
[2021-12-26 22:38] LABS: Bacillus cereus group Not Detected (NOT DETECT); Bacillus subtillis group Not Detected (NOT DETECT); Corynebacterium Not Detected (NOT DETECT); Cutibacterium acnes (P.acnes) Not Detected (NOT DETECT); Enterococcus Not Detected (NOT DETECT); Enterococcus faecalis Not Detected (NOT DETECT); Enterococcus faecium Not Detected (NOT DETECT); Lactobacillus species Not Detected (NOT DETECT); Listeria Not Detected (NOT DETECT); Listeria monocytogenes Not Detected (NOT DETECT); Micrococcus Not Detected (NOT DETECT); Pan Candida Not Detected (NOT DETECT); Pan Gram-Negative Not Detected (NOT DETECT); Staphylococcus epidermidis Not Detected (NOT DETECT); Staphylococcus lugdunensis Not Detected (NOT DETECT); Staphylococcus species Not Detected (NOT DETECT); Streptococcus agalactiae Not Detected (NOT DETECT); Streptococcus anginosus group Not Detected (NOT DETECT); Streptococcus pneumoniae Not Detected (NOT DETECT); Streptococcus pyogenes Not Detected (NOT DETECT); Streptococcus species Not Detected (NOT DETECT)
== END 2021-12-22 17:42 | disposition home or self-care (01) ==
PROVIDERS: Emergency Medicine; Emergency Provider Family Medicine
DX: G89.29 Other chronic pain (principal); R10.9 Unspecified abdominal pain; I12.9 Hypertensive chronic kidney disease with stage 1 through stage 4 chronic kidney disease, or unspecified chronic kidney disease; E10.22 Type 1 diabetes mellitus with diabetic chronic kidney disease; N18.2 Chronic kidney disease, stage 2 (mild); E78.5 Hyperlipidemia, unspecified; Z79.899 Other long term (current) drug therapy
CPT/HCPCS: 36600; 70450; 74176; 80051; 80053; 80306; 80307; 81001; 82009; 82140; 82330; 82805; 83605; 83690; 83735; 84484; 85025; 87040; 87205; 93005; 96361; 96372; 96374; 96376; 99285; J2060; J7030

== ENCOUNTER 2021-12-23 02:42 | Emergency (ER) | payer MEDICAID, SELFPAY ==
[2021-12-23] VITALS (13 sets, daily range): BP systolic 161–219; BP diastolic 99–123; PULSE 100–112; RESP 14–20; TEMP 36.4; O2SAT 94–99; BMI 28.0
[2021-12-23] MEDS: ziprasidone 20 mg/mL SDV IM (02:52)
[2021-12-23] MEDS: LORazepam 2 mg/mL INJ 1 mL IM ×2 (03:21→05:06)
[2021-12-23] MEDS: nitroglycerin 0.4 mg sublingual Tablet SUBLINGUAL (05:27)
--- NOTE | 2021-12-23 05:51 | PC.NURSE ---
Patient brought back to the ER today for abd pain and continued self-harm. Pt was seen yesterday in the ER for the same symptoms and was d/c home. Pt received Geodon IM prior to rm placement. @ 0321 Pt continued to punch herself in the face, attempting to scratch her legs, knee her face, bang head on the rails of gurney and use fingers to induce vomiting. @ 0321 Ketamine 250mg and Lorazepam 2mg given to the patient. Pt was calm and sleeping until 0500 when she started to arouse and began hitting herself in the face again. Dr. Perry notified and Ketamine 250mg and Lorazepam 2mg admin IM a second time. Pt has remained on the vitals monitor throughout the entirety of her visit with elevated bp. Provider notified of bps 220s/ 120s and placed an order for nitro. SL nitro 0.4mg given at 0530 bp taken 172/101, repeat sl nitro tab @ 0540. BP down to 179/101. Pt is resting peacefully at this moment with sitter.
--- NOTE | 2021-12-23 06:07 | ED_ITS ---
Documented by User: Pablito Perry DO 12/23/21 18:37 HPI - Abdominal Pain General: Chief Complaint: Abdominal Pain Stated Complaint: abdomen pain Time Seen by Provider: 12/23/21 02:43 Source: patient and EMS History of Present Illness: 41-year-old female well-known to the emergency department. She presents with chronic abdominal pain. EMS noted her to be banging her arms into her head, and hitting her head on hard surfaces. She does this to distract herself from the belly pain. She again says she is in so much pain she wants to . She was seen 24 hours ago, in the ER, and discharged she was. Psychiatry was consulted at that point and did not feel it necessary to admit her to the neuropsychiatric unit, as this is an ongoing chronic problem for her. She presents on the gurney, beating her hands into her head, and banging her head into the side rail. She is in soft restraints. MD elicited complaint: abdominal pain Onset (ago): month(s) Pain Consistency: intermittent Location: Diffuse Quality: cramping and stabbing Relieving factors: nothing Associated Symptoms: Reports nausea; Denies diarrhea, fever(s) and vomiting Review of Systems General: Reports: ROS unobtainable due to medical condition Const: Denies: fever(s) ENMT: Denies: throat pain Card: Denies: chest pain Resp: Denies: productive cough GI: Reports: nausea; Denies: vomiting or diarrhea Neuro: Denies: headache(s) PFS ED PFSH: Medical History Acute hyponatremia Acute renal failure Back pain C. 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 Nausea & vomiting Non-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 Psychiatric care PTSD (post-traumatic stress disorder) Self-harming behavior Self-harming behavior Suicidal ideation Suicidal ideation Toe infection UTI (urinary tract infection) Surgical History Below-knee amputation of left lower extremity H/O esophagogastroduodenoscopy (12/31/20) Bile reflux gastritis, grade B esophagitis H/O exploratory laparotomy x 3 History of amputation of right forefoot Hx of cholecystectomy Previous section x 3 S/P coronary artery stent placement x 1 S/P percutaneous endoscopic gastrostomy (PEG) tube placement Family History Unknown Diabetes extensive, type II Other CHF (congestive heart failure) Social History Smoking and tobacco status: current every day smoker Quit status (tobacco): has quit using tobacco Former quit date comment: 15 yrs ago Alcohol intake: former Former alcohol use details: 15 yrs ago Household members: spouse Marital status: Sexually active: Yes (1, ) Female Reproductive History: Spontaneous abortions: No Physical Exam Const: GENERAL APPEARANCE: in distress and lethargic ORIENTATION/CONSCIOUSNESS: Yes awake, Yes oriented to person, Yes oriented to place and Yes lethargic; not oriented to time HENMT: COMMON NORMALS: normocephalic HEAD & SCALP: normocephalic FACE & SINUS: abrasion (Forehead abrasion) Eye: COMMON NORMALS: Equal, round and reactive pupils present and EOMs intact bilaterally PUPIL: Yes Equal, round and reactive pupils present Chest: COMMONS NORMALS: normal inspection of the chest Resp: COMMON NORMALS: normal respiratory effort, No use of accessory muscles and clear to auscultation bilaterally AUSCULTATION: clear to auscultation bilaterally Cardio: COMMON NORMALS: regular rate and regular rhythm RATE: regular rate RHYTHM: regular rhythm GI: COMMON NORMALS: Normal to inspection, nondistended, normoactive bowel sounds present PALPATION: Yes Tenderness to palpation present (GI) (diffuse) Extremity: COMMON NORMALS: no pedal edema Neuro: WERO COMA SCALE: document GCS findings [place] coma scale eye opening: To sound [place] coma scale verbal response: Confused [place] coma scale motor response: Obey commands [place] coma scale total score: 13 SENSOR IUM/ORIENTATION: Yes oriented to person, Yes oriented to place, No oriented to time and Yes lethargic Course Vital Signs: Vital signs: Vital Signs Temperature 97.6 F 12/23/21 02:52 Pulse Rate 100 12/23/21 12:00 Respiratory Rate 20 H 12/23/21 12:00 Blood Pressure 192/112 12/23/21 12:00 Pulse Oximetry 95 12/23/21 12:00 MDM - Abdominal Pain Medical Decision Making Cherrie presents with an exacerbation, again, of her chronic belly pain. Because of her self-destructive activity, including banging her head on siderails, and with her own fists, she had to be given medication. Ketamine was used, as it is a good pain reliever as well. Responded well to IM ketamine, Geodon, and Ativan. Care assumed at change of shift. Patient has been here multiple times recently. She self-inflicted harm until she is sedated. She has a preference for ketamine. Yesterday we had seen the patient she was complaining of suicidal ideation psychiatry was consulted. I also discussed with the medicine service. Inpatient service did not feel there is anything that would be particularly helpful in admitting her since this is a chronic pain issue. There is nothing they could really be addressed other than continually giving her medications. She has outpatient patient medications with she is not compliant with that she was given more medications yesterday has not used them. I consulted psychiatry yesterday and again today. They render the same opinion both consults that the patient does not require psychiatric inpatient care that this is more of a chronic pain management issue. Dr. Richards stated he did not feel that admitting her to psychiatry would be helpful for the patient. Going to go ahead and discharge her home I am going to change her duloxetine to 3 times daily and we will change her from gabapentin to pregabalin 150 twice daily. Encouraged her to follow-up with her primary care doctor and seek out either methadone clinic or pain clinic for management of chronic pain. Lab Data : 12/23/21 06:35 12/23/21 06:35 Labs/Radiology: Laboratory Results WBC 10.9 10^3/uL (4.0-10.0) H 12/23/21 06:35 RBC 3.76 10^6/uL (4.1-5.3) L 12/23/21 06:35 Hgb 10.1 g/dL (11.5-15.3) L 12/23/21 06:35 Hct 33.4 % (37.0-47.0) L 12/23/21 06:35 MCV 88.8 fl (81-99) D 12/23/21 06:35 MCH 26.9 pg (28.0-34.0) L 12/23/21 06:35 MCHC 30.2 g/dL (30.0-36.0) D 12/23/21 06:35 RDW 15.7 % (12.1-15.1) H 12/23/21 06:35 Plt Count 433 10^3/cmm (130-400) H 12/23/21 06:35 MPV 8.5 fL (7.4-10.4) 12/23/21 06:35 Neut % (Auto) 76.7 % 12/23/21 06:35 Lymph % (Auto) 13.7 % 12/23/21 06:35 [place] % (Auto) 8.1 % 12/23/21 06:35 Eos % (Auto) 0.3 % 12/23/21 06:35 Baso % (Auto) 0.6 % 12/23/21 06:35 Neut # (Auto) 8.38 10^3/uL (1.8-7.7) H 12/23/21 06:35 Lymph # (Auto) 1.5 10^3/uL (0.8-4.8) 12/23/21 06:35 [place] # (Auto) 0.9 10^3/uL (0.2-0.9) 12/23/21 06:35 Eos # (Auto) 0.0 10^3/uL (0.0-0.8) 12/23/21 06:35 Baso # (Auto) 0.1 10^3/uL (0.0-0.1) 12/23/21 06:35 Nucleated RBC % (auto) 0 % 12/23/21 06:35 Nucleated RBCs # 0.0 /100WBC 12/23/21 06:35 Sodium 132 mmol/L (136-145) L 12/23/21 06:35 Potassium 3.4 mmol/L (3.5-5.1) L 12/23/21 06:35 Chloride 96 mmol/L (98-107) L 12/23/21 06:35 Carbon Dioxide 23 mmol/L (22-29) 12/23/21 06:35 Anion Gap 16.4 (5-19) 12/23/21 06:35 BUN 18 mg/dL (6-20) 12/23/21 06:35 Creatinine 1.1 mg/dL (0.5-0.9) H 12/23/21 06:35 GFR Calculation 54.2 mL/min (90-130) L 12/23/21 06:35 Glucose 212 mg/dL (65-115) H 12/23/21 06:35 Calculated Osmolality 282 mOsm/kg (285-295) L 12/23/21 06:35 Calcium 9.8 mg/dL (8.5-10.5) 12/23/21 06:35 Total Bilirubin 0.3 mg/dL (0.15-1.2) 12/23/21 06:35 AST 16 U/L (0-32) 12/23/21 06:35 ALT 18 U/L (0-33) 12/23/21 06:35 Alkaline Phosphatase 127 IU/L (35-105) H 12/23/21 06:35 Total Protein 7.4 g/dL (6.6-8.7) 12/23/21 06:35 Albumin 4.5 g/dL (3.5-5.2) 12/23/21 06:35 Globulin 2.9 g/dL (1.3-4.6) 12/23/21 06:35 HCG, Qual Negative (Negative) 12/23/21 06:45 Urine Color Dark yellow (Yellow) 12/23/21 06:45 Urine Appearance Clear (CLEAR) 12/23/21 06:45 Urine pH 5 (5-7) 12/23/21 06:45 Ur Specific [place] 1.020 (1.005-1.030) 12/23/21 06:45 Urine Protein 3+ (Negative) H 12/23/21 06:45 Urine Glucose (UA) Norm (Normal) 12/23/21 06:45 Urine Ketones 1+ (Negative) H 12/23/21 06:45 Urine Blood Neg (Negative) 12/23/21 06:45 Urine Nitrate Negative (Negative) 12/23/21 06:45 Urine Bilirubin Neg (Negative) 12/23/21 06:45 Urine Urobilinogen Norm mg/dL (Negative) 12/23/21 06:45 Ur Leukocyte Esterase Negative (Negative) 12/23/21 06:45 Urine RBC None /hpf (0-2) 12/23/21 06:45 Urine WBC 15-25 /hpf (0-5) H 12/23/21 06:45 Ur Squamous Epith Cells 5-10 /hpf (0-5) H 12/23/21 06:45 Ur Transition Epith Cell 5-10 /hpf 12/23/21 06:45 Amorphous Sediment Not Reportable 12/23/21 06:45 Urine Bacteria Trace /hpf (NONE) 12/23/21 06:45 Salicylates < 0.3 mg/dL (3-10) L 12/23/21 06:35 Urine Opiates Screen Positive ng/mL (Negative) H 12/23/21 06:45 Acetaminophen < 5.0 ug/mL (10-30) L 12/23/21 06:35 Ur Barbiturates Screen Negative ng/mL (Negative) 12/23/21 06:45 Ur Phencyclidine Scrn Negative ng/mL (Negative) 12/23/21 06:45 Ur Amphetamines Screen Negative ng/mL (Negative) 12/23/21 06:45 U Benzodiazepines Scrn Positive ng/mL (Negative) H 12/23/21 06:45 Urine Cocaine Screen Negative ng/mL (Negative) 12/23/21 06:45 U Marijuana (THC) Screen Positive ng/mL (Negative) H 12/23/21 06:45 Ethyl Alcohol < 10 mg/dL (0-10) 12/23/21 06:35 Discharge Plan Discharge Patient Disposition: Home Clinical Impression: Chronic abdominal pain Condition: Stable Prescriptions: New duloxetine 30 mg capsule,delayed release(DR/EC) 30 mg PO TID Qty: 90 0RF pregabalin 75 mg capsule 150 mg PO BID Qty: 60 0RF Discontinued gabapentin 600 mg tablet 600 mg PO QID 30 Days Qty: 120 2RF duloxetine [Cymbalta] 30 mg Capsule,Delayed Release(Dr/Ec) 30 mg PO BID 0RF No Action metoclopramide HCl 10 mg tablet 10 mg PO Q6H PRN (Reason: nausea and vomiting) 30 Days Qty: 120 2RF Lantus Solostar U-100 Insulin 100 unit/mL (3 mL) insulin pen 40 unit SUBCUT BEDTIME 30 Days Qty: 15 2RF (DME) Comfort EZ Pen [place] 33 gauge x 1/4 needle See Rx Instructions .ROUTE .MEDSUPPLY Qty: 100 2RF Rx Instructions: As directed (DME) Blood Glucose Test Strip See Rx Instructions .Route Qty: 100 11RF Rx Instructions: Use with meter to test 3 times a day. atorvastatin 40 mg tablet 40 mg PO DAILY 30 Days Qty: 30 1RF ropinirole 1 mg tablet 1 mg PO BEDTIME 30 Days Qty: 30 1RF sennosides-docusate sodium [Senna-S] 8.6-50 mg tablet 1 tab-cap PO DAILY PRN (Reason: Constipation) 30 Days Qty: 30 1RF tamsulosin 0.4 mg capsule 0.4 mg PO DAILY 30 Days Qty: 30 1RF amlodipine 10 mg tablet 10 mg PO DAILY 30 Days Qty: 30 1RF docusate sodium [Colace] 100 mg capsule 100 mg PO BID 30 Days Qty: 60 1RF metoprolol succinate 25 mg tablet extended release 24 hr 50 mg PO DAILY 30 Days Qty: 60 1RF cyclobenzaprine 10 mg Tablet 10 mg PO BID PRN (Reason: Muscle Spasms) 30 Days Qty: 60 1RF quetiapine 100 mg Tablet 200 mg PO BEDTIME 30 Days Qty: 60 1RF ondansetron 8 mg tablet,disintegrating 8 mg PO BID PRN (Reason: Nausea And Vomiting) 0RF hydrocodone-acetaminophen 5-325 mg tablet 1 tab PO Q4H PRN (Reason: Pain) 0RF Novolog Flexpen U-100 Insulin 100 unit/mL (3 mL) insulin pen 10 unit SUBCUT TID 0RF trazodone 50 mg tablet See Rx Instructions .ROUTE .COMPLEX 0RF Rx Instructions: 50mg po hs for 3 days, 100mg po hs for 3 days then 150mg hs spironolactone 25 mg tablet 25 mg PO BID 0RF hydrocodone-acetaminophen 5-325 mg tablet 1 tab PO Q6H PRN (Reason: pain) Qty: 20 0RF Discharge Orders: Discharge ED (Routine); Ordered 12/23/21 Ordered By: Adama Ceballos Patient Instructions: Abdominal Pain (ED), Opioid Safety Activity Restrictions/Additional Instructions: Follow-up with your primary care doctor to evaluate potential referral for pain clinic. Sign Out Sign Out Data: Patient Sign Out occurred on 12/23/21 at 06:42. Patient's care was discussed, and care was transferred from to Adama Ceballos DO. 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 Code ED Screen Repairer Crusher for Chg Fwd Documented by User: Adama Ceballos DO 12/23/21 12:59 HPI - Abdominal Pain General: Chief Complaint: Abdominal Pain Stated Complaint: abdomen pain Time Seen by Provider: 12/23/21 02:43 PFSH ED PFSH: Medical History Acute hyponatremia Acute renal failure Back pain C. 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 Nausea & vomiting Non-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 Psychiatric care PTSD (post-traumatic stress disorder) Self-harming behavior Self-harming behavior Suicidal ideation Suicidal ideation Toe infection UTI (urinary tract infection) Surgical History Below-knee amputation of left lower extremity H/O esophagogastroduodenoscopy (12/31/20) Bile reflux gastritis, grade B esophagitis H/O exploratory laparotomy x 3 History of amputation of right forefoot Hx of cholecystectomy Previous section x 3 S/P coronary artery stent placement x 1 S/P percutaneous endoscopic gastrostomy (PEG) tube placement Family History Unknown Diabetes extensive, type II Other CHF (congestive heart failure) Social History Smoking and tobacco status: current every day smoker Quit status (tobacco): has quit using tobacco Former quit date comment: 15 yrs ago Alcohol intake: former Former alcohol use details: 15 yrs ago Household members: spouse Marital status: Sexually active: Yes (1, ) Course Vital Signs: Vital signs: Vital Signs Temperature 97.6 F 12/23/21 02:52 Pulse Rate 100 12/23/21 12:00 Respiratory Rate 20 H 12/23/21 12:00 Blood Pressure 192/112 12/23/21 12:00 Pulse Oximetry 95 12/23/21 12:00 MDM - Abdominal Pain Medical Decision Making Cherrie presents with an exacerbation, again, of her chronic belly pain. Because of her self-destructive activity, including banging her head on siderails, and with her own fists, she had to be given medication. Ketamine was used, as it is a good pain reliever as well. Responded well to IM ketamine, Geodon, and Ativan. Care assumed at change of shift. Patient has been here multiple times recently. She self-inflicted harm until she is sedated. She has a preference for ketamine. Yesterday we had seen the patient she was complaining of suicidal i deation psychiatry was consulted. I also discussed with the medicine service. Inpatient service did not feel there is anything that would be particularly helpful in admitting her since this is a chronic pain issue. There is nothing they could really be addressed other than continually giving her medications. She has outpatient patient medications with she is not compliant with that she was given more medications yesterday has not used them. I consulted psychiatry yesterday and again today. They render the same opinion both consults that the patient does not require psychiatric inpatient care that this is more of a chronic pain management issue. Dr. Richards stated he did not feel that admitting her to psychiatry would be helpful for the patient. Organ to go ahead and discharge her home I am going to change her duloxetine to 3 times daily and we will change her from gabapentin to pregabalin 150 twice daily. Encouraged her to follow-up with her primary care doctor and seek out either methadone clinic or pain clinic for management of chronic pain. Medical Records I reviewed the patient's medical records. Lab Data I reviewed the patient's lab results. : 12/23/21 06:35 12/23/21 06:35 Labs/Radiology: Laboratory Results WBC 10.9 10^3/uL (4.0-10.0) H 12/23/21 06:35 RBC 3.76 10^6/uL (4.1-5.3) L 12/23/21 06:35 Hgb 10.1 g/dL (11.5-15.3) L 12/23/21 06:35 Hct 33.4 % (37.0-47.0) L 12/23/21 06:35 MCV 88.8 fl (81-99) D 12/23/21 06:35 MCH 26.9 pg (28.0-34.0) L 12/23/21 06:35 MCHC 30.2 g/dL (30.0-36.0) D 12/23/21 06:35 RDW 15.7 % (12.1-15.1) H 12/23/21 06:35 Plt Count 433 10^3/cmm (130-400) H 12/23/21 06:35 MPV 8.5 fL (7.4-10.4) 12/23/21 06:35 Neut % (Auto) 76.7 % 12/23/21 06:35 Lymph % (Auto) 13.7 % 12/23/21 06:35 [place] % (Auto) 8.1 % 12/23/21 06:35 Eos % (Auto) 0.3 % 12/23/21 06:35 Baso % (Auto) 0.6 % 12/23/21 06:35 Neut # (Auto) 8.38 10^3/uL (1.8-7.7) H 12/23/21 06:35 Lymph # (Auto) 1.5 10^3/uL (0.8-4.8) 12/23/21 06:35 [place] # (Auto) 0.9 10^3/uL (0.2-0.9) 12/23/21 06:35 Eos # (Auto) 0.0 10^3/uL (0.0-0.8) 12/23/21 06:35 Baso # (Auto) 0.1 10^3/uL (0.0-0.1) 12/23/21 06:35 Nucleated RBC % (auto) 0 % 12/23/21 06:35 Nucleated RBCs # 0.0 /100WBC 12/23/21 06:35 Sodium 132 mmol/L (136-145) L 12/23/21 06:35 Potassium 3.4 mmol/L (3.5-5.1) L 12/23/21 06:35 Chloride 96 mmol/L (98-107) L 12/23/21 06:35 Carbon Dioxide 23 mmol/L (22-29) 12/23/21 06:35 Anion Gap 16.4 (5-19) 12/23/21 06:35 BUN 18 mg/dL (6-20) 12/23/21 06:35 Creatinine 1.1 mg/dL (0.5-0.9) H 12/23/21 06:35 GFR Calculation 54.2 mL/min (90-130) L 12/23/21 06:35 Glucose 212 mg/dL (65-115) H 12/23/21 06:35 Calculated Osmolality 282 mOsm/kg (285-295) L 12/23/21 06:35 Calcium 9.8 mg/dL (8.5-10.5) 12/23/21 06:35 Total Bilirubin 0.3 mg/dL (0.15-1.2) 12/23/21 06:35 AST 16 U/L (0-32) 12/23/21 06:35 ALT 18 U/L (0-33) 12/23/21 06:35 Alkaline Phosphatase 127 IU/L (35-105) H 12/23/21 06:35 Total Protein 7.4 g/dL (6.6-8.7) 12/23/21 06:35 Albumin 4.5 g/dL (3.5-5.2) 12/23/21 06:35 Globulin 2.9 g/dL (1.3-4.6) 12/23/21 06:35 HCG, Qual Negative (Negative) 12/23/21 06:45 Urine Color Dark yellow (Yellow) 12/23/21 06:45 Urine Appearance Clear (CLEAR) 12/23/21 06:45 Urine pH 5 (5-7) 12/23/21 06:45 Ur Specific [place] 1.020 (1.005-1.030) 12/23/21 06:45 Urine Protein 3+ (Negative) H 12/23/21 06:45 Urine Glucose (UA) Norm (Normal) 12/23/21 06:45 Urine Ketones 1+ (Negative) H 12/23/21 06:45 Urine Blood Neg (Negative) 12/23/21 06:45 Urine Nitrate Negative (Negative) 12/23/21 06:45 Urine Bilirubin Neg (Negative) 12/23/21 06:45 Urine Urobilinogen Norm mg/dL (Negative) 12/23/21 06:45 Ur Leukocyte Esterase Negative (Negative) 12/23/21 06:45 Urine RBC None /hpf (0-2) 12/23/21 06:45 Urine WBC 15-25 /hpf (0-5) H 12/23/21 06:45 Ur Squamous Epith Cells 5-10 /hpf (0-5) H 12/23/21 06:45 Ur Transition Epith Cell 5-10 /hpf 12/23/21 06:45 Amorphous Sediment Not Reportable 12/23/21 06:45 Urine Bacteria Trace /hpf (NONE) 12/23/21 06:45 Salicylates < 0.3 mg/dL (3-10) L 12/23/21 06:35 Urine Opiates Screen Positive ng/mL (Negative) H 12/23/21 06:45 Acetaminophen < 5.0 ug/mL (10-30) L 12/23/21 06:35 Ur Barbiturates Screen Negative ng/mL (Negative) 12/23/21 06:45 Ur Phencyclidine Scrn Negative ng/mL (Negative) 12/23/21 06:45 Ur Amphetamines Screen Negative ng/mL (Negative) 12/23/21 06:45 U Benzodiazepines Scrn Positive ng/mL (Negative) H 12/23/21 06:45 Urine Cocaine Screen Negative ng/mL (Negative) 12/23/21 06:45 U Marijuana (THC) Screen Positive ng/mL (Negative) H 12/23/21 06:45 Ethyl Alcohol < 10 mg/dL (0-10) 12/23/21 06:35 Discharge Plan Discharge Patient Disposition: Home Clinical Impression: Chronic abdominal pain Condition: Stable Prescriptions: New duloxetine 30 mg capsule,delayed release(DR/EC) 30 mg PO TID Qty: 90 0RF pregabalin 75 mg capsule 150 mg PO BID Qty: 60 0RF Discontinued gabapentin 600 mg tablet 600 mg PO QID 30 Days Qty: 120 2RF duloxetine [Cymbalta] 30 mg Capsule,Delayed Release(Dr/Ec) 30 mg PO BID 0RF No Action metoclopramide HCl 10 mg tablet 10 mg PO Q6H PRN (Reason: nausea and vomiting) 30 Days Qty: 120 2RF Lantus Solostar U-100 Insulin 100 unit/mL (3 mL) insulin pen 40 unit SUBCUT BEDTIME 30 Days Qty: 15 2RF (DME) Comfort EZ Pen [place] 33 gauge x 1/4 needle See Rx Instructions .ROUTE .MEDSUPPLY Qty: 100 2RF Rx Instructions: As directed (DME) Blood Glucose Test Strip See Rx Instructions .Route Qty: 100 11RF Rx Instructions: Use with meter to test 3 times a day. atorvastatin 40 mg tablet 40 mg PO DAILY 30 Days Qty: 30 1RF ropinirole 1 mg tablet 1 mg PO BEDTIME 30 Days Qty: 30 1RF sennosides-docusate sodium [Senna-S] 8.6-50 mg tablet 1 tab-cap PO DAILY PRN (Reason: Constipation) 30 Days Qty: 30 1RF tamsulosin 0.4 mg capsule 0.4 mg PO DAILY 30 Days Qty: 30 1RF amlodipine 10 mg tablet 10 mg PO DAILY 30 Days Qty: 30 1RF docusate sodium [Colace] 100 mg capsule 100 mg PO BID 30 Days Qty: 60 1RF metoprolol succinate 25 mg tablet extended release 24 hr 50 mg PO DAILY 30 Days Qty: 60 1RF cyclobenzaprine 10 mg Tablet 10 mg PO BID PRN (Reason: Muscle Spasms) 30 Days Qty: 60 1RF quetiapine 100 mg Tablet 200 mg PO BEDTIME 30 Days Qty: 60 1RF ondansetron 8 mg tablet,disintegrating 8 mg PO BID PRN (Reason: Nausea And Vomiting) 0RF hydrocodone-acetaminophen 5-325 mg tablet 1 tab PO Q4H PRN (Reason: Pain) 0RF Novolog Flexpen U-100 Insulin 100 unit/mL (3 mL) insulin pen 10 unit SUBCUT TID 0RF trazodone 50 mg tablet See Rx Instructions .ROUTE .COMPLEX 0RF Rx Instructions: 50mg po hs for 3 days, 100mg po hs for 3 days then 150mg hs spironolactone 25 mg tablet 25 mg PO BID 0RF hydrocodone-acetaminophen 5-325 mg tablet 1 tab PO Q6H PRN (Reason: pain) Qty: 20 0RF Discharge Orders: Discharge ED (Routine); Ordered 12/23/21 Ordered By: Adama Ceballos Patient Instructions: Abdominal Pain (ED), Opioid Safety Activity Restrictions/Additional Instructions: Follow-up with your primary care doctor to evaluate potential referral for pain clinic. Sign Out Sign Out Data: Patient Sign Out occurred on 12/23/21 at 06:42. Patient's care was discussed, and care was transferred from to Adama Ceballos DO. 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 Code ED Screen Repairer Crusher for [place]
[2021-12-23 06:43] LABS: Basophils # 0.1 10^3/uL (0.0-0.1); Basophils % 0.6 %; Eosinophils % 0.3 %; Hematocrit 33.4 % (37.0-47.0); Hemoglobin 10.1 g/dL (11.5-15.3); Lymphocytes # 1.5 10^3/uL (0.8-4.8); Lymphocytes % 13.7 %; Mean Corpuscular HGB Conc 30.2 g/dL (30.0-36.0); Mean Corpuscular Hemoglobin 26.9 pg (28.0-34.0); Mean Corpuscular Volume 88.8 fl (81-99); Mean Platelet Volume 8.5 fL (7.4-10.4); Monocytes # 0.9 10^3/uL (0.2-0.9); Monocytes % 8.1 %; Neutrophils # 8.38 10^3/uL (1.8-7.7); Neutrophils % 76.7 %; Nucleated Red Blood Cells % 0 %; Platelet Count 433 10^3/cmm (130-400); Red Blood Count 3.76 10^6/uL (4.1-5.3); Red Cell Distribution Width 15.7 % (12.1-15.1); White Blood Count 10.9 10^3/uL (4.0-10.0)
[2021-12-23 07:01] LABS: HCG Qualitative Urine. Negative (Negative)
[2021-12-23 07:03] LABS: Amphetamines Screen Urine Negative (Negative); Barbiturates Screen Urine Negative (Negative); Benzodiazepines Screen Urine Positive (Negative); Cocaine Screen Urine Negative (Negative); Opiate Screen Urine Positive (Negative); PCP Screen Urine Negative (Negative); THC Screen Urine Positive (Negative)
[2021-12-23 07:09] LABS: Add Urine Culture? No; Add Urine Microscopic? YES; Bacteria Urine TRACE /hpf; Bilirubin Urine Neg (Negative); Blood Urine Neg (Negative); Glucose Urine UA Norm (Normal); Ketones Urine 1+ (Negative); Leukocyte Esterase Urine Negative (Negative); Nitrate Urine Negative (Negative); Protein Urine 3+ (Negative); Urine Appearance Clear (CLEAR); Urine Color Dark Yellow (Yellow); Urobilinogen Urine Norm (Negative); WBC Urine 15-25 /hpf (0-5); pH Urine 5 (5-7)
[2021-12-23 07:12] LABS: Alanine Aminotransferase 18 U/L (0-33); Albumin Level 4.5 g/dL (3.5-5.2); Alkaline Phosphatase 127 IU/L (35-105); Anion Gap 16.4 (5-19); Aspartate Amino Transferase 16 U/L (0-32); Blood Urea Nitrogen 18 mg/dL (6-20); Calcium 9.8 mg/dL (8.5-10.5); Carbon Dioxide 23 mmol/L (22-29); Chloride 96 mmol/L (98-107); Globulin 2.9 g/dL (1.3-4.6); Glomerular Filtration Rate 54.2 mL/min (90-130); Glucose 212 mg/dL (65-115); Osmolality Calculated 282 mOsm/kg (285-295); Potassium 3.4 mmol/L (3.5-5.1); Sodium 132 mmol/L (136-145); Total Bilirubin 0.3 mg/dL (0.15-1.2); Total Protein 7.4 g/dL (6.6-8.7)
[2021-12-23 07:34] LABS: Acetaminophen < 5.0 ug/mL (10-30); Alcohol Level < 10 mg/dL (0-10); Salicylate < 0.3 mg/dL (3-10)
--- NOTE | 2021-12-23 09:09 | PC.NURSE ---
This RN is assuming care of pt at this time. Pt is sleeping respirations even and unlabored at this time. Sitter at bedside. Will continue to monitor.
--- NOTE | 2021-12-23 10:46 | PC.NURSE ---
Pt provided bedside commode and assisted to toilet at this time.
--- NOTE | 2021-12-23 10:59 | P.NPUCON_ITS ---
Providers/Reason for Consult Consulting Physican/Specialty*: Kris Thompson MD/Psychiatist Reason for Consult*: Patient states that she wants to and is attempting to harm herself Psych Consult HPI History of Present Illness Cherrie Solomon is a 41 year old female who comes in to the emergency department with the following report: 41-year-old female well-known to the [facility].? She presents with chronic abdominal pain.? EMS noted her to be banging her arms into her head, and hitting her head on hard surfaces.? She does this to distract herself from the belly pain.? She again says she is in so much pain she wants to .? She was seen 24 hours ago, in the ER, and discharged she was.? Psychiatry was consulted at that point and did not feel it necessary to admit her to the neuropsychiatric unit, as this is an ongoing chronic problem for her.? She presents on the gurney, beating her hands into her head, and banging her head into the side rail.? She is in soft restraints. She presents the same as yesterday. She continues to say that she wants to . This is likely to continuing until her abdominal pain is controlled to a better extent. She is not appropriate for admission to a psychiatry unit because her primary problem is pain and her primary need is pain management. She can be sedated with Ativan or ketamine until her pain is controlled. Review of Systems Eyes: Denies: photophobia ENMT: Denies: enlarged tonsils Musc: Denies: joint warmth All/Imm: Denies: acute wheezing Meds Home Medications and Allergies Home Medications Medication Instructions Recorded Confirmed Last Taken Type gabapentin 600 mg tablet 600 mg PO QID 30 Days #120 tab 07/03/21 12/22/21 10/20/21 Rx insulin glargine 100 unit/mL (3 40 unit (0.4 mL) SUBCUT BEDTIME 30 07/03/21 12/22/21 10/20/21 Rx mL) subcutaneous pen (Lantus Days #15 ml Solostar U-100 Insulin) metoclopramide HCl 10 mg tablet 10 mg PO Q6H PRN 30 Days #120 tab 07/03/21 12/22/21 Unknown Rx pen needle, diabetic 33 gauge x #100 ea 07/03/21 12/22/21 Unknown Rx / (Comfort EZ Pen [place]) blood sugar diagnostic (Blood #100 ea 07/12/21 12/22/21 Unknown Rx Glucose Test) amlodipine 10 mg tablet 10 mg PO DAILY 30 Days #30 tab 09/25/21 12/22/21 10/20/21 Rx atorvastatin 40 mg tablet 40 mg PO DAILY 30 Days #30 tab 09/25/21 12/22/21 10/20/21 Rx docusate sodium 100 mg capsule 100 mg PO BID 30 Days #60 cap 09/25/21 12/22/21 10/20/21 Rx (Colace) metoprolol succinate 25 mg 50 mg PO DAILY 30 Days #60 tab 09/25/21 12/22/21 10/20/21 Rx tablet,extended release 24 hr ropinirole 1 mg tablet 1 mg PO BEDTIME 30 Days #30 tab 09/25/21 12/22/21 10/20/21 Rx sennosides 8.6 mg-docusate sodium 1 tab-cap PO DAILY PRN 30 Days #30 09/25/21 12/22/21 10/20/21 Rx 50 mg tablet (Senna-S) tab tamsulosin 0.4 mg capsule 0.4 mg PO DAILY 30 Days #30 cap 09/25/21 12/22/21 10/20/21 Rx cyclobenzaprine 10 mg tablet 10 mg PO BID PRN 30 Days #60 tab 10/27/21 12/22/21 Unknown Rx quetiapine 100 mg tablet 200 mg PO BEDTIME 30 Days #60 tab 10/27/21 12/22/21 Unknown Rx ondansetron 8 mg disintegrating 8 mg PO BID PRN 11/03/21 12/22/21 Unknown History tablet duloxetine 30 mg capsule,delayed 30 mg PO BID 12/22/21 12/22/21 Unknown History release (Cymbalta) hydrocodone 5 mg-acetaminophen 325 1 tab PO Q4H PRN 12/22/21 12/22/21 Unknown History mg tablet hydrocodone 5 mg-acetaminophen 325 1 tab PO Q6H PRN #20 tab 12/22/21 Unknown Rx mg tablet insulin aspart U-100 100 unit/mL 10 unit SUBCUT TID 12/22/21 12/22/21 Unknown History (3 mL) subcutaneous pen (Novolog Flexpen U-100 Insulin aspart) spironolactone 25 mg tablet 25 mg PO BID 12/22/21 12/22/21 Unknown History trazodone 50 mg tablet See Rx Instructions .ROUTE .COMPLEX 12/22/21 12/22/21 Unknown History Allergies Allergy/AdvReac Type Severity Reaction Status Date / Time morphine Allergy ALGY-Difficulty Verified 11/03/21 15:20 Breathing PFSH NPU PFSH: Medical History Acute hyponatremia Acute renal failure Back pain C. 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 Nausea & vomiting Non-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 Psychiatric care PTSD (post-traumatic stress disorder) Self-harming behavior Self-harming behavior Suicidal ideation Suicidal ideation Toe infection UTI (urinary tract infection) Surgical History Below-knee amputation of left lower extremity H/O esophagogastroduodenoscopy (12/31/20) Bile reflux gastritis, grade B esophagitis H/O exploratory laparotomy x 3 History of amputation of right forefoot Hx of cholecystectomy Previous section x 3 S/P coronary artery stent placement x 1 S/P percutaneous endoscopic gastrostomy (PEG) tube placement Family History Unknown Diabetes extensive, type II Other CHF (congestive heart failure) Social History Smoking and tobacco status: current every day smoker Quit status (tobacco): has quit using tobacco Former quit date comment: 15 yrs ago Alcohol intake: former Former alcohol use details: 15 yrs ago Household members: spouse Marital status: Sexually active: Yes (1, ) Female Reproductive History: Spontaneous abortions: No Dietary Habits: Current diet type/program: regular Caffeine: Yes Caffeine intake frequency: coffee Exercise: Physical activity functional status: restricted by assistive devices (rolling walker) Safety: Seatbelt use: always Home Safety: Working smoke detector in home: Yes Personal Safety: Do you feel safe at home: Yes Victim of physical abuse: No Victim of emotional abuse: No Victim of sexual abuse: No Would you like help information on resources?: No Mental Status Exam Cognition: Level of Consciousness: Awake, Alert and Follows Commands Patient Cognition Impaired: No Ability to Follow Directions: Good Patient Orientation (long list): Name and Birthday Affect: Affect Description: Anxious Behavior: Patient Behavior: Cooperative and Withdrawn Vitals/I&O/Wt Last Vital Signs Temp 97.6 F 12/23/21 02:52 Pulse 112 H 12/23/21 10:54 Resp 20 H 12/23/21 10:54 BP 161/104 12/23/21 10:54 Pulse Ox 97 12/23/21 10:54 Weight last 48 hrs Weight 86.183 kg Data NPU : 12/23/21 06:35 12/23/21 06:35 A&P Assessment and plan (1) Suicidal ideation: Status: Acute (2) Acute flank pain: Status: Acute Plan This is a 41-year-old female who has recurrent episodes of this behavior with complaints of abdominal pain so severe that she wants to and she attempted to harm herself. This will probably continue until her pain is controlled to a better extent. Admission to a psychiatry unit is not really appropriate because her primary need at this point is pain control and sedation until the pain can be controlled. Would recommend Ativan for that sedation. Involuntary Hold Information 96 Hour Hold: 96 Hour Involuntary Admission: No 96 Hour Hold Ending Date: 09/15/21 96 Hour Hold Ending Time: 00:01 Attestations NPU Medical Necessity Statement*: See primary physicians notes for medical necessity. She does not warrant psychiatric admission at this time. 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 Code Acute Returned Goods Receiving Clerk for Kim Mitchell Diagnoses Suicidal ideation R45.851 Acute flank pain R10.9
== END 2021-12-23 12:55 | disposition home or self-care (01) ==
PROVIDERS: Emergency Medicine; Emergency Provider Family Medicine
DX: R10.9 Unspecified abdominal pain (principal); G89.29 Other chronic pain; R45.88 Nonsuicidal self-harm
CPT/HCPCS: 80053; 80306; 80307; 81001; 81025; 85025; 96372; 99284; J2060; J3486; J3490

== ENCOUNTER 2022-04-16 13:58 | Inpatient (IN) | payer MEDICAID, SELFPAY ==
[2022-04-16] VITALS (13 sets, daily range): BP systolic 131–172; BP diastolic 70–92; PULSE 88–110; RESP 12–24; TEMP 36.9–38.2; O2SAT 94–99; BMI 23.8
--- NOTE | 2022-04-16 14:21 | CTR_ITS ---
PROCEDURE INFORMATION: Exam: CT Left Lower Extremity With Contrast, Knee Exam date and time: 04/16/2022 4:45 PM Age: 42 years old Clinical indication: Pain; Swelling or effusion of joint; Knee; Left; Patient HX: Amp; Additional info: Knee pain, concern for abscess TECHNIQUE: Imaging protocol: CT of the Left lower extremity with intravenous contrast was performed. Exam focused on the knee. Radiation optimization: All CT scans at this facility use at least one of these dose optimization techniques: automated exposure control; mA and/or kV adjustment per patient size (includes targeted exams where dose is matched to clinical indication); or iterative reconstruction. Contrast material: [id number]; Contrast volume: 80 ml; Contrast route: INTRAVENOUS (IV); COMPARISON: CR XR knee LT 3V* [id number] 04/16/2022 2:55 PM RADIATION DOSE METRICS: Total DLP (mGy-cm): 594.24 FINDINGS: Bones/joints: Normal. No acute fracture or dislocation. No irregular osseous erosions. Soft tissues: There is a walled-off fluid collection/abscess measuring 4.9 x 2.0 x 6.4 cm located in the subcutaneous tissues of the anterior knee in the infrapatellar region. CT/CT lower leg LT w con [id number] IMPRESSION: Abscess measuring 4.9 x 2.0 x 6.4 cm located in the infrapatellar soft tissues.
--- NOTE | 2022-04-16 14:21 | XR_ITS ---
WS: [id number] Exam: XR knee LT 3V* [id number] Date/Time of Exam: 04/16/2022 2:48 PM Reason For Exam: knee pain Comparison 01/15/2021. No fracture or dislocation noted. No joint effusion. Joint compartments are relatively well maintaine d. Signs of below-knee amputation. XR/XR knee LT 3V* [id number] IMPRESSION: 1. No fracture or dislocation. No joint effusion.
--- NOTE | 2022-04-16 14:24 | ED_ITS ---
HPI - Extremity Problem General: Chief complaint: Extremity Injury, Lower Stated complaint: Extreme pain on amp. leg Time Seen by Provider: 04/16/22 14:14 History of Present Illness: 42-year-old presents due to left knee pain since this morning. She has a below the knee amputation. States she noticed some redness and erythema. Upon presentation to triage she is tachycardic and fe brile. Denies any recent penetrating injury or recent surgery. Review of Systems Narrative: - CONSTITUTIONAL: Denies weight loss, fever and chills. - HEENT: Denies changes in vision and hearing. - RESPIRATORY: Denies SOB and cough. - CV: Denies palpitations and CP. - GI: Denies abdominal pain, nausea, vomiting and diarrhea. - : Denies dysuria and urinary frequency. - MSK: As above - SKIN: As above - NEUROLOGICAL: Denies headache, weakness, numbness and syncope. - PSYCHIATRIC: Denies suicidal ideation [facility] ED PFSH: Medical History Acute hyponatremia Acute renal failure Back pain C. 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 Nausea & vomiting Non-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 Psychiatric care PTSD (post-traumatic stress disorder) Self-harming behavior Self-harming behavior Suicidal ideation Suicidal ideation Toe infection UTI (urinary tract infection) Surgical History Below-knee amputation of left lower extremity H/O esophagogastroduodenoscopy (12/31/20) Bile reflux gastritis, grade B esophagitis H/O exploratory laparotomy x 3 History of amputation of right forefoot Hx of cholecystectomy Previous section x 3 S/P coronary artery stent placement x 1 S/P percutaneous endoscopic gastrostomy (PEG) tube placement Family History Unknown Diabetes extensive, type II Other CHF (congestive heart failure) Social History Smoking and tobacco status: never smoked Quit status (tobacco): has quit using tobacco Former quit date comment: 15 yrs ago Alcohol intake: former Former alcohol use details: 15 yrs ago Household members: spouse Marital status: Sexually active: Yes (1, ) Female Reproductive History: Spontaneous abortions: No Physical Exam Narrative: EXAM NARRATIVE: - GENERAL: Alert and oriented x 3. No acute distress. Well-nourished. - EYES: EOMI. Anicteric. - HENT: Atraumatic, no C-spine tenderness. Moist mucous membranes. No scleral icterus. No cervical lymphadenopathy. - LUNGS: Clear to auscultation bilaterally. No accessory muscle use. Equal lung sounds bilaterally. No respiratory distress. - CARDIOVASCULAR: Regular rate and rhythm. No murmur. No JVD. - ABDOMEN: Soft, non-tender and non-distended. Negative CVA tenderness bilaterally, no rebound or guarding, negative Pearce sign. No palpable masses. - EXTREMITIES: Left below-knee amputation. There is a superficial appearing erythema and induration above the left patella. The area is tender to touch. No apparent joint effusion. - SKIN: Warm. - NEUROLOGIC: No meningismus or focal neurological deficits. CN II-XII grossly intact. - PSYCHIATRIC: Cooperative. Appropriate mood and affect. Course Vital Signs: Vital signs: Vital Signs Temperature 100.7 F H 04/16/22 14:03 Pulse Rate 91 04/16/22 16:30 Respiratory Rate 18 04/16/22 16:30 Blood Pressure 153/79 04/16/22 16:30 Pulse Oximetry 95 04/16/22 16:30 Oxygen Delivery Me thod 04/16/22 16:30 MDM - Extremity (Nontraumatic) Medical Decision Making 42-year-old presents due to knee pain. On exam has superficial swelling and induration. CT scan concerning for superficial abscess. Sepsis order set initiated. Discussed with orthopedic surgery and they will perform washout in the OR tomorrow. Otherwise extremities neurovascularly intact. No signs of necrotizing fasciitis. Remainder of lab work and imaging reviewed. Discussed with hospitalist and they agreed patient would benefit from admission. Patient admitted in stable condition. Further evaluation management per hospitalist team. Lab Data : 04/16/22 14:47 04/16/22 14:47 Radiology Impressions Knee X-Ray 04/16/22 14: IMPRESSION: 1. No fracture or dislocation. No joint effusion. Laboratory Results WBC 9.7 10^3/uL (4.0-10.0) 04/16/22 14:47 RBC 3.73 10^6/uL (4.1-5.3) L 04/16/22 14:47 Hgb 9.7 g/dL (11.5-15.3) L 04/16/22 14:47 Hct 29.8 % (37.0-47.0) L 04/16/22 14:47 MCV 79.9 fl (81-99) L 04/16/22 14:47 MCH 26.0 pg (28.0-34.0) L 04/16/22 14:47 MCHC 32.6 g/dL (30.0-36.0) 04/16/22 14:47 RDW 15.1 % (12.1-15.1) 04/16/22 14:47 Plt Count 379 10^3/cmm (130-400) 04/16/22 14:47 MPV 8.6 fL (7.4-10.4) 04/16/22 14:47 Neut % (Auto) 82.9 % 04/16/22 14:47 Lymph % (Auto) 8.6 % 04/16/22 14:47 [place] % (Auto) 7.9 % 04/16/22 14:47 Eos % (Auto) 0.0 % 04/16/22 14:47 Baso % (Auto) 0.3 % 04/16/22 14:47 Neut # (Auto) 8.06 10^3/uL (1.8-7.7) H 04/16/22 14:47 Lymph # (Auto) 0.8 10^3/uL (0.8-4.8) 04/16/22 14:47 [place] # (Auto) 0.8 10^3/uL (0.2-0.9) 04/16/22 14:47 Eos # (Auto) 0.0 10^3/uL (0.0-0.8) 04/16/22 14:47 Baso # (Auto) 0.0 10^3/uL (0.0-0.1) 04/16/22 14:47 Nucleated RBC % (auto) 0 % 04/16/22 14:47 Nucleated RBCs # 0.0 /100WBC 04/16/22 14:47 ESR 22 mm/hr (0-15) H 04/16/22 14:47 PT 14.00 SECONDS (12.1-14.9) 04/16/22 14:47 INR 1.05 (0.8-1.2) 04/16/22 14:47 APTT 31.8 SECONDS (23.9-36.7) 04/16/22 14:47 Sodium 134 mmol/L (136-145) L 04/16/22 14:47 Potassium 2.9 mmol/L (3.5-5.1) L 04/16/22 14:47 Chloride 96 mmol/L (98-107) L 04/16/22 14:47 Carbon Dioxide 23 mmol/L (22-29) 04/16/22 14:47 Anion Gap 17.9 (5-19) 04/16/22 14:47 BUN 11 mg/dL (6-20) 04/16/22 14:47 Creatinine 0.9 mg/dL (0.5-0.9) 04/16/22 14:47 GFR Calculation 68.0 mL/min (90-130) L 04/16/22 14:47 Glucose 224 mg/dL (65-115) H 04/16/22 14:47 Calculated Osmolality 284 mOsm/kg (285-295) L 04/16/22 14:47 Lactate 1.8 mmol/L (0.5-2.2) 04/16/22 14:47 Calcium 9.3 mg/dL (8.5-10.5) 04/16/22 14:47 Total Bilirubin 0.8 mg/dL (0.15-1.2) 04/16/22 14:47 AST 77 U/L (0-32) H 04/16/22 14:47 ALT 78 U/L (0-33) H 04/16/22 14:47 Alkaline Phosphatase 181 U/L (35-105) H 04/16/22 14:47 C-Reactive Protein 160.8 mg/L (0.0-4.9) H 04/16/22 14:47 Total Protein 7.2 g/dL (6.6-8.7) 04/16/22 14:47 Albumin 4.0 g/dL (3.5-5.2) 04/16/22 14:47 Globulin 3.2 g/dL (1.3-4.6) 04/16/22 14:47 SARS-CoV-2 Ag (Rapid) Negative (Negative) 04/16/22 16:24 Discharge Plan Discharge Condition: Stable Prescriptions: No Action Lantus Solostar U-100 Insulin 100 unit/mL (3 mL) insulin pen 40 unit SUBCUT BEDTIME 30 Days Qty: 15 2RF (DME) Comfort EZ Pen [place] 33 gauge x 1/4 needle See Rx Instructions .ROUTE .MEDSUPPLY Qty: 100 2RF Rx Instructions: As directed (DME) Blood Glucose Test Strip See Rx Instructions .Route Qty: 100 11RF Rx Instructions: Use with meter to test 3 times a day. atorvastatin 40 mg tablet 40 mg PO DAILY 30 Days Qty: 30 1RF ropinirole 1 mg tablet 1 mg PO BEDTIME 30 Days Qty: 30 1RF amlodipine 10 mg tablet 10 mg PO DAILY 30 Days Qty: 30 1RF docusate sodium [Colace] 100 mg capsule 100 mg PO BID 30 Days Qty: 60 1RF metoprolol succinate 25 mg tablet extended release 24 hr 50 mg PO DAILY 30 Days Qty: 60 1RF cyclobenzaprine 10 mg Tablet 10 mg PO BID PRN (Reason: Muscle Spasms) 30 Days Qty: 60 1RF insulin aspart U-100 [Novolog Flexpen U-100 Insulin] 100 unit/mL (3 mL) insulin pen 10 unit SUBCUT TID spironolactone 25 mg tablet 25 mg PO BID duloxetine 30 mg capsule,delayed release(DR/EC) 30 mg PO TID Qty: 90 0RF trazodone 50 mg tablet 50 mg PO BEDTIME doxepin 10 mg capsule 10 mg PO BEDTIME promethazine 25 mg tablet 25 mg PO Q6H PRN (Reason: Nausea) 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 Code ED Occasional Babysitter for Kim Mitchell
[2022-04-16] MEDS: acetaminophen 500 mg Tablet PO (15:00)
[2022-04-16 15:05] LABS: Basophils % 0.3 %; Hematocrit 29.8 % (37.0-47.0); Hemoglobin 9.7 g/dL (11.5-15.3); Lymphocytes # 0.8 10^3/uL (0.8-4.8); Lymphocytes % 8.6 %; Mean Corpuscular HGB Conc 32.6 g/dL (30.0-36.0); Mean Corpuscular Volume 79.9 fl (81-99); Mean Platelet Volume 8.6 fL (7.4-10.4); Monocytes # 0.8 10^3/uL (0.2-0.9); Monocytes % 7.9 %; Neutrophils # 8.06 10^3/uL (1.8-7.7); Neutrophils % 82.9 %; Nucleated Red Blood Cells % 0 %; Platelet Count 379 10^3/cmm (130-400); Red Blood Count 3.73 10^6/uL (4.1-5.3); Red Cell Distribution Width 15.1 % (12.1-15.1); White Blood Count 9.7 10^3/uL (4.0-10.0)
[2022-04-16 15:11] LABS: Erythrocyte Sedimentation Rate 22 mm/hr (0-15)
[2022-04-16 15:21] LABS: INR 1.05 (0.8-1.2)
[2022-04-16 15:22] LABS: Partial Thromboplastin Time 31.8 SECONDS (23.9-36.7)
[2022-04-16 15:30] LABS: Lactate (Lactic Acid level) 1.8 mmol/L (0.5-2.2)
[2022-04-16] MEDS: cefepime 2,000 MG in sodium chloride 0.9% (plus) 50 ML 100 MG IV (15:39)
[2022-04-16] MEDS: sodium chloride 0.9% 1,000 ML 999 ML IV (15:39)
[2022-04-16] MEDS: fentaNYL 50 mcg/mL INJ 2mL IVP (15:39)
[2022-04-16] MEDS: vancomycin 1,500 MG/300 ML PIGGYBACK 150 MG IV (15:50)
[2022-04-16] MEDS: ondansetron 2 mg/ML SDV 2 mL 4 MG IVP ×2 (16:07→21:08)
[2022-04-16 16:21] LABS: Alanine Aminotransferase 78 U/L (0-33); Alkaline Phosphatase 181 U/L (35-105); Anion Gap 17.9 (5-19); Aspartate Amino Transferase 77 U/L (0-32); Blood Urea Nitrogen 11 mg/dL (6-20); C Reactive Protein 160.8 mg/L (0.0-4.9); Calcium 9.3 mg/dL (8.5-10.5); Carbon Dioxide 23 mmol/L (22-29); Chloride 96 mmol/L (98-107); Globulin 3.2 g/dL (1.3-4.6); Glucose 224 mg/dL (65-115); Osmolality Calculated 284 mOsm/kg (285-295); Sodium 134 mmol/L (136-145); Total Bilirubin 0.8 mg/dL (0.15-1.2); Total Protein 7.2 g/dL (6.6-8.7)
[2022-04-16 16:28] LABS: Potassium 2.9 mmol/L (3.5-5.1)
[2022-04-16 16:58] LABS: SARS Covid-2 Antigen Negative (Negative)
[2022-04-16] MEDS: HYDROmorphone 1 mg/mL INJ 1 mL 0.5 MG IVP (17:11)
--- NOTE | 2022-04-16 17:57 | PM.CONSULT ---
Providers/Reason For Consult Consulting Physician/Specialty*: Yaya Salas DO/orthopedic surgery Reason for Consult*: Left knee septic prepatellar bursitis abscess History of Present Illness History of Present Illness Cherrie Solomon is a 42 year old female presents today with 2 days of worsening left knee pain. She has a history of left below the knee amputation. She states she has had multiple debridements of her stump. This currently is went on to heal. She complains today of pain over the anterior aspect just distal to her patella. Patient states she does crawl around and drag her knee. Denies any previous penetrating trauma or injury. She states she noticed it was red and hurting and swollen. It is slowly gotten worse over the past day. Patient states she started to feel febrile. She subsequently presented to the emergency department for evaluation. Orthopedic surgery team was consulted for evaluation. WBC count 9.7 ESR 22 CRP 160.8. Patient started on antibiotics would recommend clindamycin. CT scan ordered. Patient has history of diabetes mellitus as well as significant past medical history which is listed below. Review of Systems General: Reports: 10 or more systems reviewed and unremarkable except in HPI and below Medications/Allergies Home Medications Medication Instructions Recorded Confirmed Last Taken Type insulin glargine 100 unit/mL (3 40 unit (0.4 mL) SUBCUT BEDTIME 30 07/03/21 04/16/22 10/20/21 Rx mL) subcutaneous pen (Lantus days #15 mL Solostar U-100 Insulin) pen needle, diabetic 33 gauge x #100 ea 07/03/21 04/16/22 Unknown Rx 1/4 (Comfort EZ Pen [place]) blood sugar diagnostic (Blood #100 ea 07/12/21 04/16/22 Unknown Rx Glucose Test) amlodipine 10 mg tablet 10 mg PO DAILY 30 days #30 tabs 09/25/21 04/16/22 10/20/21 Rx atorvastatin 40 mg tablet 40 mg PO DAILY 30 days #30 tabs 09/25/21 04/16/22 10/20/21 Rx docusate sodium 100 mg capsule 100 mg PO BID 30 days #60 caps 09/25/21 04/16/22 10/20/21 Rx (Colace) metoprolol succinate 25 mg 50 mg PO DAILY 30 days #60 tabs 09/25/21 04/16/22 10/20/21 Rx tablet,extended release 24 hr ropinirole 1 mg tablet 1 mg PO BEDTIME 30 days #30 tabs 09/25/21 04/16/22 10/20/21 Rx cyclobenzaprine 10 mg tablet 10 mg PO BID PRN Muscle Spasms 30 10/27/21 04/16/22 Unknown Rx days #60 tabs insulin aspart U-100 100 unit/mL 10 unit SUBCUT TID 12/22/21 04/16/22 Unknown History (3 mL) subcutaneous pen (Novolog Flexpen U-100 Insulin aspart) spironolactone 25 mg tablet 25 mg PO BID 12/22/21 04/16/22 Unknown History duloxetine 30 mg capsule,delayed 30 mg PO TID #90 caps 12/23/21 04/16/22 Unknown Rx release doxepin 10 mg capsule 10 mg PO BEDTIME 04/16/22 04/16/22 Unknown History promethazine 25 mg tablet 25 mg PO Q6H PRN Nausea 04/16/22 04/16/22 Unknown History trazodone 50 mg tablet 50 mg PO BEDTIME 04/16/22 04/16/22 Unknown History Allergies Allergy/AdvReac Type Severity Reaction Status Date / Time morphine Allergy ALGY-Difficulty Verified 04/16/22 12:23 Breathing PFSH Acute PFSH: Medical History (Updated 04/16/22 @ 18:03 by Yaya Salas DO) Acute hyponatremia Acute renal failure Back pain C. 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 Nausea & vomiting Non-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 Psychiatric care PTSD (post-traumatic stress disorder) Self-harming behavior Self-harming behavior Septic prepatellar bursitis of left knee Suicidal ideation Suicidal ideation Toe infection UTI (urinary tract infection) Surgical History Below-knee amputation of left lower extremity H/O esophagogastroduodenoscopy (12/31/20) Bile reflux gastritis, grade B esophagitis H/O exploratory laparotomy x 3 History of amputation of right forefoot Hx of cholecystectomy Previous section x 3 S/P coronary artery stent placement x 1 S/P percutaneous endoscopic gastrostomy (PEG) tube placement Family History Unknown Diabetes extensive, type II Other CHF (congestive heart failure) Social History Smoking and tobacco status: never smoked Quit status (tobacco): has quit using tobacco Former quit date comment: 15 yrs ago Alcohol intake: former Former alcohol use details: 15 yrs ago Household members: spouse Marital status: Sexually active: Yes (1, ) Female Reproductive History: Spontaneous abortions: No Vitals/I&O/Wt Last Vital Signs Temp 100.7 F H 04/16/22 14:03 Pulse 91 04/16/22 16:30 Resp 18 04/16/22 16:30 BP 153/79 04/16/22 16:30 Pulse Ox 95 04/16/22 16:30 O2 Del Method 04/16/22 16:30 04/16/22 04/16/22 04/16/22 06:59 14:59 22:59 Intake Total 1050 / 1050 Balance 1050 / 1050 Weight last 48 hrs Weight 161 lb Physical Exam Narrative: Examination left lower extremity demonstrates a left healed below the knee amputation stump. There is no signs of infection about the stump incision or wound dehiscence or drainage. She has no tenderness to palpation at the stump incision. Over the prepatellar region there is a focal area of folliculitis that may be patient's source. She has significant tenderness to palpation and palpable fluctuance over the prepatellar region. Findings consistent with prepatellar bursitis and abscess. Small areas of erythema noted. No significant bullae or tracking proximally lymphangitis. She is able to actively extend extend her knee without discomfort. There is no palpable joint effusion. There is no pain with range of motion to the left hip. Her left stump is warm well perfused. Compartments are soft and compressible. Intact to light touch to the left stump. Const: COMMON NORMALS: no acute distress and alert HENMT: COMMON NORMALS: normocephalic and atraumatic HEAD & SCALP: normocephalic and atraumatic Resp: COMMON NORMALS: normal respiratory effort and No retractions Neuro: SENSORIUM/ORIENTATION: Yes alert Data : 04/16/22 14:47 04/16/22 14:47 Micro: Microbiology 04/16/22 14:47 Blood Culture - Preliminary Blood SPECIMEN COLLECTED 04/16/22 14:54 Blood Culture - Preliminary Blood SPECIMEN COLLECTED Xray Ortho: My impression: X-rays of the right knee demonstrate no acute fracture dislocation there is an apparent right below the knee amputation stump. No apparent joint effusion or subcutaneous air noted. Other CT: My impression: CT scan of the left knee demonstrates a fluid collection of the prepatellar region consistent with abscess of the prepatellar bursitis. No joint effusion noted. No fracture dislocation noted Radiologist's impression: Abscess measuring 5 cm x 2 cm x 6 cm in the infrapatellar soft tissue A&P Assessment and plan (1) Septic prepatellar bursitis of left knee: Status: Acute Plan -X-rays reviewed -CT scan reviewed-show fluid collection immolation consistent with abscess of the prepatellar bursa -Labs reviewed?WBC 9.7 ESR 22 CRP 160.8 -On IV antibiotics would recommend empiric coverage as well as adding clindamycin for antitoxin effect -Hospitalist team for admission -Patient may have a diet today, n.p.o. at midnight -Plan for OR tomorrow for left knee irrigation and debridement Free to contact myself or any questions pertaining to patient's care. MDM Patient presents today with 2 days of worsening left knee pain. She has a history of a left below the knee amputation stump. She has had multiple debridements of this this is went on to finally heal. She presents today in the emergency department with significant pain and palpable fluctuance over the prepatellar bursa region this has a noticeable area of fluctuance and fluid accumulation consistent with abscess. Her labs are as follows WBC 9.7 ESR 22 CRP 160.8. She has been febrile. At this point time given her CT scan as well as physical exam and laboratory findings would recommend patient will need to go undergo the OR for left knee irrigation and debridement with cultures. She will be on IV antibiotics and be admitted by the hospitalist team. Should be n.p.o. at midnight with plan for surgery tomorrow. Patient understands risk benefits complications alternatives of surgical intervention and elects to proceed with surgery. Consult Attestations Medical Necessity Statement: Patient has septic prepatellar bursitis with palpable and visible fluctuant abscess accumulation. Given her increasing CRP count as well as fevers would recommend taking patient to the OR for left knee irrigation debridement. She will be admitted overnight by the hospitalist team and plan for surgery tomorrow. 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 Code Acute Lead Nuclear Medicine Technologist for g Fwd Exam Expanded Problem Focused Diagnoses Septic prepatellar bursitis of left knee M71.162
[2022-04-16] MEDS: clindamycin 900 MG/50 ML PREMIX 100 MG IV (18:29)
[2022-04-16] MEDS: potassium chloride premix 100 ML 25 MEQ IV (18:58)
--- NOTE | 2022-04-16 19:08 | P.HP_ITS ---
Providers/Chief Complaint Chief Complaint: Extreme pain on amp. leg History of Present Illness Cherrie Solomon is a 42 year old female who has significant psychiatric history related admissions to [facility] secondary to suicidal ideation, depression, insulin- dependent diabetes, recurrent injuries to her left leg stump, required anti-MRSA coverage in the past, right toe amputation metatarsophalangeal joint 6/ secondary to osteomyelitis went to urgent care clinic today, was evaluated by Dr. Lewis for left knee pain referred her to the ER for further evaluation with concern for abscess Patient stating that her symptoms started yesterday she was fine before that she has not been using any prosthesis, she is wheelchair-bound, lives with her , she noticed fever 100.6, had 1 episode of emesis in the ER, endorsing rigors and chills. In the ER ER she has been diagnosed with infrapatellar abscess orthopedic services are consulted hospital service will admit her Review of Systems Const: Reports: fever(s), chills and body aches Eyes: Denies: change in vision ENMT: Denies: throat pain Card: Denies: chest pain Resp: Denies: dyspnea GI: Denies: abdominal pain : Denies: flank pain Musc: Reports: extremity pain, extremity swelling, joint pain, joint swelling, joint redness and joint warmth Skin/Breast: Reports: rash and skin tenderness Neuro: Denies: headache(s) Psych: Reports: anxiety and depression Endo: Denies: polyuria Keith/Lymph: Denies: easy bruising All/Imm: Denies: urticaria Medications/Allergies Home Medications Medication Instructions Recorded Confirmed Last Taken Type insulin glargine 100 unit/mL (3 40 unit (0.4 mL) SUBCUT BEDTIME 30 07/03/21 04/16/22 10/20/21 Rx mL) subcutaneous pen (Lantus days #15 mL Solostar U-100 Insulin) pen needle, diabetic 33 gauge x #100 ea 07/03/21 04/16/22 Unknown Rx 1/4 (Comfort EZ Pen [place]) blood sugar diagnostic (Blood #100 ea 07/12/21 04/16/22 Unknown Rx Glucose Test) amlodipine 10 mg tablet 10 mg PO DAILY 30 days #30 tabs 09/25/21 04/16/22 10/20/21 Rx atorvastatin 40 mg tablet 40 mg PO DAILY 30 days #30 tabs 09/25/21 04/16/22 10/20/21 Rx docusate sodium 100 mg capsule 100 mg PO BID 30 days #60 caps 09/25/21 04/16/22 10/20/21 Rx (Colace) metoprolol succinate 25 mg 50 mg PO DAILY 30 days #60 tabs 09/25/21 04/16/22 10/20/21 Rx tablet,extended release 24 hr ropinirole 1 mg tablet 1 mg PO BEDTIME 30 days #30 tabs 09/25/21 04/16/22 10/20/21 Rx cyclobenzaprine 10 mg tablet 10 mg PO BID PRN Muscle Spasms 30 10/27/21 04/16/22 Unknown Rx days #60 tabs insulin aspart U-100 100 unit/mL 10 unit SUBCUT TID 12/22/21 04/16/22 Unknown History (3 mL) subcutaneous pen (Novolog Flexpen U-100 Insulin aspart) spironolactone 25 mg tablet 25 mg PO BID 12/22/21 04/16/22 Unknown History duloxetine 30 mg capsule,delayed 30 mg PO TID #90 caps 12/23/21 04/16/22 Unknown Rx release doxepin 10 mg capsule 10 mg PO BEDTIME 04/16/22 04/16/22 Unknown History promethazine 25 mg tablet 25 mg PO Q6H PRN Nausea 04/16/22 04/16/22 Unknown History trazodone 50 mg tablet 50 mg PO BEDTIME 04/16/22 04/16/22 Unknown History Allergies Allergy/AdvReac Type Severity Reaction Status Date / Time morphine Allergy ALGY-Difficulty Verified 04/16/22 12:23 Breathing PFSH Acute PFSH: Medical History Acute hyponatremia Acute renal failure Back pain C. 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 Nausea & vomiting Non-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 Psychiatric care PTSD (post-traumatic stress disorder) Self-harming behavior Self-harming behavior Septic prepatellar bursitis of left knee Suicidal ideation Suicidal ideation Toe infection UTI (urinary tract infection) Surgical History Below-knee amputation of left lower extremity H/O esophagogastroduodenoscopy (12/31/20) Bile reflux gastritis, grade B esophagitis H/O exploratory laparotomy x 3 History of amputation of right forefoot Hx of cholecystectomy Previous section x 3 S/P coronary artery stent placement x 1 S/P percutaneous endoscopic gastrostomy (PEG) tube placement Family History Unknown Diabetes extensive, type II Other CHF (congestive heart failure) Social History Smoking and tobacco status: never smoked Quit status (tobacco): has quit using tobacco Former quit date comment: 15 yrs ago Alcohol intake: former Former alcohol use details: 15 yrs ago Household members: spouse Marital status: Sexually active: Yes (1, ) Female Reproductive History: Spontaneous abortions: No Vitals/I&O/Wt Last Vital Signs Temp 100.7 F H 04/16/22 14:03 Pulse 88 04/16/22 19:06 Resp 13 04/16/22 19:06 BP 135/74 04/16/22 19:06 Pulse Ox 95 04/16/22 19:06 O2 Del Method 04/16/22 19:06 04/16/22 04/16/22 04/16/22 06:59 14:59 22:59 Intake Total 1350 / 1350 Balance 1350 / 1350 Weight last 48 hrs Weight 73.028 kg Physical Exam Narrative: young female Appears more than stated age Muscle mass loss Currently on room air Patient had 1 episode of emesis in the ER Abdomen soft Is medical management Hemodynamically stable No acute distress Her left infrapatellar area is extremely warm to touch, tender to palpate, mild erythema Right leg without any swelling Amputated right toes noted Patient is awake and alert Nonfocal neuro exam Appropriate mood and affect No active signs of anxiety Data : 04/16/22 14:47 04/16/22 14:47 Micro: Microbiology 04/16/22 14:47 Blood Culture - Preliminary Blood SPECIMEN COLLECTED 04/16/22 14:54 Blood Culture - Preliminary Blood SPECIMEN COLLECTED A&P Assessment and plan (1) Septic prepatellar bursitis of left knee: Status: Acute (2) Chronic pain: Status: Acute (3) Hyperglycemia: Status: Acute (4) Diabetes mellitus type 1: Status: Chronic Qualifiers: Diabetes mellitus complication status: with hyperglycemia Qualified Code(s): E10.65 - Type 1 diabetes mellitus with hyperglycemia (5) Diabetic gastroparesis: Status: Chronic (6) Anemia of chronic disease: Status: Acute (7) Below-knee amputation of left lower extremity: Status: Acute (8) Insomnia: Status: Acute Qualifiers: Insomnia type: due to medical condition Qualified Code(s): G47.01 - Insomnia due to medical condition (9) GERD (gastroesophageal reflux disease): Status: Acute Qualifiers: Esophagitis presence: without esophagitis Qualified Code(s): K21.9 - Gastro-esophageal reflux disease without esophagitis (10) ALEJANDRO (generalized anxiety disorder): Status: Acute Plan Left knee abscess 4.9 x 2 x 6.4 cm Infrapatellar abscess Patient is endorsing fever, rigors and chills, miild fever at the time of my evaluation no signs of sepsis Patient is stating that she has not suffered with any injury or falls however she has not been using any prosthesis History of MRSA infection in the past which was treated with p.o. antibiotics Start broad-spectrum antibiotics Blood cultures taken in the ER around 2:47 PM Patient is diabetic which will require broad-spectrum initially further antibiotic de-escalation will be made after culture and sensitivity report Will cover with vancomycin and Zosyn for now Keep her n.p.o. after midnight Opiates currently is along bowel regimen No active signs of sepsis Check D-dimer inflammatory markers Place [place]jas catheter for surgery tomorrow Hypokalemia: 80 mEq IV potassium, check magnesium level Type 2 diabetes Consistent carb diet for now n.p.o. after midnight Diabetic gastroparesis check A1c level no active emesis Zofran to be alternate with Reglan History of bipolar disorder No active decompensation Continue anxiolytic DVT prophylaxis SCDs Full code RECREATION MANAGER after midnight Attestations Medical Necessity Statement*: More than 2 midnights for management of infrapatellar abscess Time Spent in Patient Care: 40 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 Code Acute Gas Welding Equipment Mechanic for Chg Fwd Diagnoses Septic prepatellar bursitis of left knee M71.162 Chronic pain G89.29 Hyperglycemia R73.9 Diabetes mellitus type 1 E10.65 Diabetes mellitus complication status: with hyperglycemia Diabetic gastroparesis E11.43; K31.84 Anemia of chronic disease D63.8 Below-knee amputation of left lower extremity S88.112A Insomnia G47.01 Insomnia type: due to medical condition GERD (gastroesophageal reflux disease) K21.9 Esophagitis presence: without esophagitis ALEJANDRO (generalized anxiety disorder) F41.1
[2022-04-16] MEDS: iohexol 350 mg/mL 100 mL Btl IV (19:15)
[2022-04-16] MEDS: sodium chloride 0.9% 1,000 ML 100 ML IV ×2 (19:18→22:23)
[2022-04-16 19:46] LABS: Magnesium 1.6 mg/dL (1.7-2.3)
[2022-04-16 19:53] LABS: Procalcitonin 0.23 ng/mL (0-0.5)
[2022-04-16 21:17] LABS: Bilirubin Urine Neg (Negative); Blood Urine Neg (Negative); Glucose Urine UA Norm (Normal); Ketones Urine Negative (Negative); Leukocyte Esterase Urine Negative (Negative); Nitrate Urine Negative (Negative); Protein Urine Neg (Negative); RBC Urine 0-4 /hpf (0-2); Urine Appearance Clear (CLEAR); Urine Color Yellow (Yellow); Urobilinogen Urine Norm (Negative); WBC Urine 0-4 /hpf (0-5); pH Urine 7 (5-7)
[2022-04-16 21:18] LABS: Add Urine Culture? No; Squamous Epithelial Cell Urine 0-4 /hpf (0-5)
[2022-04-16] MEDS: HYDROmorphone 1 mg/mL INJ 1 mL 0.2 MG IVP (21:20)
[2022-04-16 21:28] LABS: Glucose Point of Care 123 mg/dL (70-110)
--- NOTE | 2022-04-16 21:31 | PC.PHAR ---
Vancomycin is dosed at 1gm IVPB every 12 hours to produce a predicted trough level of 14.47 (population based pharmacokinetic analysis). A trouggh level has been ordered from the lab to be obtained before the fourth dose to confirm and adjust if needed.
[2022-04-16] MEDS: lidocaine 1% 5 ML in potassium chloride premix 100 ML 25 ML IV (22:25)
[2022-04-16] MEDS: piperacillin-tazobactam 3.375 GM in sodium chloride 0.9% (plus) 50 ML IV (22:25)
[2022-04-16] MEDS: doxepin 10 mg Capsule PO (22:38)
[2022-04-16] MEDS: duloxetine 30 mg Capsule PO (22:38)
[2022-04-17] VITALS (23 sets, daily range): BP systolic 112–182; BP diastolic 66–98; PULSE 71–105; RESP 16–24; TEMP 36.4–37.2; O2SAT 94–100
[2022-04-17] MEDS: HYDROmorphone 1 mg/mL INJ 1 mL 0.2 MG IVP ×2 (01:34→06:42)
[2022-04-17 02:10] LABS: Basophils % 0.3 %; Eosinophils % 0.1 %; Hemoglobin 9.9 g/dL (11.5-15.3); Lymphocytes # 1.4 10^3/uL (0.8-4.8); Lymphocytes % 18.3 %; Mean Corpuscular HGB Conc 31.9 g/dL (30.0-36.0); Mean Corpuscular Hemoglobin 25.8 pg (28.0-34.0); Mean Corpuscular Volume 80.7 fl (81-99); Mean Platelet Volume 10.2 fL (7.4-10.4); Monocytes # 0.8 10^3/uL (0.2-0.9); Monocytes % 10.2 %; Neutrophils # 5.56 10^3/uL (1.8-7.7); Neutrophils % 70.8 %; Nucleated Red Blood Cells % 0 %; Platelet Count 243 10^3/cmm (130-400); Positive C 1; Red Blood Count 3.84 10^6/uL (4.1-5.3); Red Cell Distribution Width 15.5 % (12.1-15.1); White Blood Count 7.9 10^3/uL (4.0-10.0)
[2022-04-17 02:37] LABS: Blood Urea Nitrogen 10 mg/dL (6-20); Calcium 9.1 mg/dL (8.5-10.5); Carbon Dioxide 19 mmol/L (22-29); Chloride 107 mmol/L (98-107); Glomerular Filtration Rate 77.9 mL/min (90-130); Glucose 137 mg/dL (65-115); Osmolality Calculated 291 mOsm/kg (285-295); Sodium 140 mmol/L (136-145)
[2022-04-17 02:56] LABS: Glucose Point of Care 95 mg/dL (70-110)
[2022-04-17 02:56] LABS: Slide Review Slide Review Perform
[2022-04-17 03:04] LABS: Anion Gap 18.5 (5-19)
[2022-04-17 03:07] LABS: Potassium 4.5 mmol/L (3.5-5.1)
[2022-04-17] MEDS: ondansetron 2 mg/ML SDV 2 mL 4 MG IVP (04:28)
[2022-04-17] MEDS: vancomycin 1,000 MG in sodium chloride 0.9% 250 ML 250 MG IV ×2 (04:30→16:41)
[2022-04-17] MEDS: piperacillin-tazobactam 3.375 GM in sodium chloride 0.9% (plus) 50 ML IV ×2 (05:45→20:53)
[2022-04-17 06:28] LABS: Glucose Point of Care 137 mg/dL (70-110)
--- NOTE | 2022-04-17 07:40 | P.PN_ITS ---
Subjective Subjective: Patient seen and examined this morning. Having issues with nausea overnight and this morning. Currently patient is afebrile vitals show patient is hypertensive. Patient's been n.p.o. since midnight. Plan for OR today for left knee irrigation and debridement. Patient understands and agrees with current plan. All questions answered. Vitals/I&O/Wt Last Vital Signs Temp 98.4 F 04/17/22 05:00 Pulse 97 04/17/22 05:00 Resp 18 04/17/22 06:42 BP 182/98 04/17/22 05:00 Pulse Ox 99 04/17/22 05:00 O2 Del Method 04/16/22 21:05 04/16/22 04/17/22 04/17/22 22:59 06:59 14:59 Intake Total 1708.333 / 1708.333 50 / 1758.333 455 / 455 Output Total 950 / 950 Balance 1708.333 / 1708.333 -900 / 808.333 455 / 455 Weight last 48 hrs Weight 161 lb Physical Exam Narrative: Examination left lower extremity. Left below the knee amputation stump incision well-healed with no signs of wound drainage or sinus tract. Palpable fluctuant abscess over the prepatellar bursa region just inferior to the inferior pole of the patella. Erythema noted over this region. Patient still able to actively flex and extend the knee. No palpable joint effusion. Stump is warm and well-perfused. Patient has sensation intact light touch to the left BKA stump. Patient able to move hip without discomfort. Urinary Catheter Management: [place]: Cath Placed During This Visit: yes Reason for Continuing Indwelling Catheter: Accurate Measurement of Urinary Output in Critically Ill Patients Urinary Catheter Date of Insertion: 04/16/22 Urinary Catheter Time of Insertion: 20:52 Data : 04/17/22 01:40 04/17/22 01:40 Micro: Microbiology 04/16/22 14:47 Blood Culture - Preliminary Blood SPECIMEN COLLECTED 04/16/22 14:54 Blood Culture - Preliminary Blood SPECIMEN COLLECTED A&P Assessment and plan (1) Septic prepatellar bursitis of left knee: Status: Acute Plan - N.p.o. since midnight -Continue IV antibiotics -Recommend holding a.m. anticoagulation -Internal medicine as primary appreciate medical management -Nonweightbearing left BKA stump -Plan for OR today for left knee irrigation and debridement Patient understands and agrees with current plan. All questions answered. Ins and outs of the procedure discussed as far as risk benefits complications and alternatives to surgical and nonsurgical treatment options and patient understands and agrees to proceed with surgery Attestations Medical Necessity Statement*: Patient has large abscess of septic prepatellar bursa of the left knee with a history of left below the knee amputation. 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
--- NOTE | 2022-04-17 07:48 | W.PM.OPSUD ---
Surgery/Procedure H&P Update DATE OF PROCEDURE: April 17, 2022 DATE H&P PERFORMED: 04/16/22 CHANGES TO PREVIOUS DOCUMENTATION: On PREOP DIAGNOSIS: Septic patellar bursitis and abscess left knee PRIMARY INDICATION FOR PROCEDURE: Septic prepatellar bursitis and abscess left knee PLANNED PROCEDURE: Operation Date: 04/17/22 10:50 Proposed Procedures p Left knee irrigation and debridement with cultures(Left) - Yaya Salas DO
[2022-04-17] MEDS: sennosides-docusate Tablet 1 TAB PO (08:39)
[2022-04-17] MEDS: duloxetine 30 mg Capsule PO ×3 (08:39→20:53)
[2022-04-17] MEDS: amlodipine 10 mg Tablet PO (08:39)
[2022-04-17] MEDS: metoprolol succinate ER (24 HR) 25 mg Tablet 50 MG PO (08:39)
[2022-04-17] MEDS: sodium chloride 0.9% 1,000 ML 30 ML IV (10:19)
--- NOTE | 2022-04-17 10:37 | P.ANESASSM_ITS ---
Pre-Anesthetic Assessment Height/Weight: Height 1.75 m Weight 73.028 kg Temp Pulse Resp BP Pulse Ox O2 Del Method 99.0 F 98 16 148/84 98 04/17/22 09:52 04/17/22 09:52 04/17/22 09:52 04/17/22 09:52 04/17/22 09:52 04/17/22 09:52 Preop Diagnosis: Septic patellar bursitis and abscess left knee Operation Date: 04/17/22 10:50 Proposed Procedures p Left knee irrigation and debridement with cultures(Left) - Yaya Salas DO Familial anesthetic complications: None Was Beta Rozina taken within 24 hours: Yes Was Clonidine taken within 24 hours: N/A Last intake: Intake Last Liquid Date 04/16/22 Last Solid Date 04/15/22 Social No alcohol and No tobacco Exam alert, oriented x 3, clear to auscultation bilaterally and regular rate & rhythm Airway Submandibular: within normal limits Cervical ROM: within normal limits Mallampati: Class II Comments: Comments: Very poor dentition, missing front upper teeth, many broken teeth/missing teeth Pulmonary None reported CV/HEM Anemia, Coronary Artery Disease (s/p 1 stent ) and Hypertension Chronic Renal Insufficiency GI Gastroesophageal Reflux Disease Gastroparesis Metabolic Diabetes Mellitus (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 ) Anesthesia: Anesthesia Evaluation and General Other: We discussed risk and benefits of general anesthesia including PONV, sore throat (sometimes severe), corneal abrasion, positioning and peripheral nerve injuries, life threatening allergic reaction, post operative ICU admission requiring prolonged intubation, aspiration, stroke, heart attack, , and rare incidences of recall. Patient consents to proceed with general anesthesia. Risk of > 500 ml blood loss (7ml/kg in children): No Medications/Allergies Home Medications Medication Instructions Recorded Confirmed Last Taken Type insulin glargine 100 unit/mL (3 40 unit (0.4 mL) SUBCUT BEDTIME 30 07/03/21 04/16/22 10/20/21 Rx mL) subcutaneous pen (Lantus days #15 mL Solostar U-100 Insulin) pen needle, diabetic 33 gauge x #100 ea 07/03/21 04/16/22 Unknown Rx 1/ (Comfort EZ Pen [place]) blood sugar diagnostic (Blood #100 ea 07/12/21 04/16/22 Unknown Rx Glucose Test) amlodipine 10 mg tablet 10 mg PO DAILY 30 days #30 tabs 09/25/21 04/16/22 10/20/21 Rx atorvastatin 40 mg tablet 40 mg PO DAILY 30 days #30 tabs 09/25/21 04/16/22 10/20/21 Rx docusate sodium 100 mg capsule 100 mg PO BID 30 days #60 caps 09/25/21 04/16/22 10/20/21 Rx (Colace) metoprolol succinate 25 mg 50 mg PO DAILY 30 days #60 tabs 09/25/21 04/16/22 10/20/21 Rx tablet,extended release 24 hr ropinirole 1 mg tablet 1 mg PO BEDTIME 30 days #30 tabs 09/25/21 04/16/22 10/20/21 Rx cyclobenzaprine 10 mg tablet 10 mg PO BID PRN Muscle Spasms 30 10/27/21 04/16/22 Unknown Rx days #60 tabs insulin aspart U-100 100 unit/mL 10 unit SUBCUT TID 12/22/21 04/16/22 Unknown History (3 mL) subcutaneous pen (Novolog Flexpen U-100 Insulin aspart) spironolactone 25 mg tablet 25 mg PO BID 12/22/21 04/16/22 Unknown History duloxetine 30 mg capsule,delayed 30 mg PO TID #90 caps 12/23/21 04/16/22 Unknown Rx release doxepin 10 mg capsule 10 mg PO BEDTIME 04/16/22 04/16/22 Unknown History promethazine 25 mg tablet 25 mg PO Q6H PRN Nausea 04/16/22 04/16/22 Unknown History trazodone 50 mg tablet 50 mg PO BEDTIME 04/16/22 04/16/22 Unknown History Allergies Allergy/AdvReac Type Severity Reaction Status Date / Time morphine Allergy ALGY-Difficulty Verified 04/16/22 12:23 Breathing Current Medications Generic Name Dose Route Start Last Admin Trade Name Freq PRN Reason Stop Dose Admin Amlodipine Besylate 10 mg 04/17/22 09:00 04/17/22 08:39 Amlodipine 10 Mg Tablet PO 10 mg DAILY DAWSON Administration Doxepin HCl 10 mg 04/16/22 21:00 04/16/22 22:38 Doxepin 10 Mg Capsule PO 10 mg BEDTIME DAWSON Administration Duloxetine HCl 30 mg 04/16/22 21:00 04/17/22 08:39 Duloxetine 30 Mg Capsule PO 30 mg TID DAWSON Administration Hydromorphone HCl 0.2 mg 04/16/22 20:35 04/17/22 06:42 Hydromorphone 1 Mg/Ml Inj 1 Ml IVP 0.2 mg Q4H PRN Administration pain Sodium Chloride 1,000 mls @ 100 mls/hr 04/16/22 19:00 04/17/22 09:26 Sodium Chloride 0.9% IV Infused .Q10H DAWSON Infusion Piperacillin Sod/Tazobactam 50 mls @ 12.5 mls/hr 04/16/22 20:35 04/17/22 05:45 Sod 3.375 gm/ Sodium Chloride IV 12.5 mls/hr Q8H DAWSON Administration Protocol Vancomycin HCl 1,000 mg/ 250 mls @ 250 mls/hr 04/17/22 04:00 04/17/22 07:31 Sodium Chloride IV Infused Q12H DAWSON Infusion Sodium Chloride 1,000 mls @ 30 mls/hr 04/17/22 10:15 04/17/22 10:19 Sodium Chloride 0.9% IV 04/18/22 10:14 30 mls/hr .Q24H DAWSON Administration Insulin Human Lispro 0 unit 04/17/22 08:00 04/17/22 07:33 Insulin Lispro 100 Unit/1 Ml SUBCUT Not Given TIDWM [facility] Protocol Metoprolol Succinate 50 mg 04/17/22 09:00 04/17/22 08:39 Metoprolol Succinate Er (24 Hr) 25 Mg Tablet PO 50 mg DAILY DAWSON Administration Ondansetron HCl 4 mg 04/16/22 20:35 04/17/22 04:28 Ondansetron 2 Mg/Ml Sdv 2 Ml IVP 4 mg Q6H PRN Administration NAUSEA AND VOMITING Senna/Docusate Sodium 1 tab 04/17/22 09:00 04/17/22 08:39 Sennosides-Docusate Tablet PO 1 tab DAILY DAWSON Administration PFSH Anesthesia Medical History Acute hyponatremia Acute renal failure Back pain C. 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 Nausea & vomiting Non-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 Psychiatric care PTSD (post-traumatic stress disorder) Self-harming behavior Self-harming behavior Septic prepatellar bursitis of left knee Suicidal ideation Suicidal ideation Toe infection UTI (urinary tract infection) Surgical History Below-knee amputation of left lower extremity H/O esophagogastroduodenoscopy (12/31/20) Bile reflux gastritis, grade B esophagitis H/O exploratory laparotomy x 3 History of amputation of right forefoot Hx of cholecystectomy Previous section x 3 S/P coronary artery stent placement x 1 S/P percutaneous endoscopic gastrostomy (PEG) tube placement Family History Unknown Diabetes extensive, type II Other CHF (congestive heart failure) Social History Smoking and tobacco status: never smoked Quit status (tobacco): has quit using tobacco Former quit date comment: 15 yrs ago Alcohol intake: former Former alcohol use details: 15 yrs ago Household members: spouse Marital status: Sexually active: Yes (1, ) Female Reproductive History Spontaneous abortions: No Data Anesthesia : 04/17/22 01:40 04/17/22 01:40 Short CBC 04/16/22 04/17/22 Range/Units 14:47 01:40 WBC 9.7 7.9 (4.0-10.0) 10^3/uL Hgb 9.7 L 9.9 L (11.5-15.3) g/dL Hct 29.8 L 31.0 L (37.0-47.0) % MCV 79.9 L 80.7 L (81-99) fl Plt Count 379 243 D (130-400) 10^3/cmm Neut % (Auto) 82.9 70.8 % Neut # (Auto) 8.06 H 5.56 (1.8-7.7) 10^3/uL BMP 04/16/22 04/17/22 14:47 01:40 Sodium 134 L 140 Potassium 2.9 L 4.5 Chloride 96 L 107 Carbon Dioxide 23 19 L BUN 11 10 Creatinine 0.9 0.8 Glucose 224 H 137 H Calcium 9.3 9.1 Liver Function 04/16/22 Range/Units 14:47 Total Bilirubin 0.8 (0.15-1.2) mg/dL AST 77 H (0-32) U/L ALT 78 H (0-33) U/L Alkaline Phosphatase 181 H (35-105) U/L Albumin 4.0 (3.5-5.2) g/dL Urine 04/16/22 Range/Units 20:16 Urine Color Yellow (Yellow) Urine Appearance Clear (CLEAR) Urine pH 7 (5-7) Ur Specific [place] 1.010 (1.005-1.030) Urine Protein Neg (Negative) Urine Glucose (UA) Norm (Normal) Urine Ketones Negative (Negative) Urine Nitrate Negative (Negative) Urine Bilirubin Neg (Negative) Ur Leukocyte Esterase Negative (Negative) Urine RBC 0-4 H (0-2) /hpf Urine WBC 0-4 H (0-5) /hpf Blood Bank 04/17/22 01:40 Blood Type A Positive Rho(D) Type Positive Antibody Screen Negative COVID Results 04/16/22 16:24 SARS-CoV-2 Ag (Rapid) Negative Coags 04/16/22 04/16/22 04/16/22 14:47 14:47 14:47 ESR 22 H PT 14.00 INR 1.05 APTT 31.8 C-Reactive Protein 160.8 H Microbiology 04/16/22 14:47 Blood Culture - Preliminary Blood SPECIMEN COLLECTED 04/16/22 14:54 Blood Culture - Preliminary Blood SPECIMEN COLLECTED Cardiac Studies: No Data to Display
[2022-04-17] MEDS: vancomycin 1,000 MG SDV 1000 MG XX (11:53)
--- NOTE | 2022-04-17 12:10 | P.OP_ITS ---
Brief Operative Note Date of procedure: 04/17/22 Pre-op diagnosis: Septic prepatellar bursitis left knee with abscess Post-op diagnosis: same Procedure Done: Left knee irrigation and debridement with cultures Surgeon: Yaya Salas Estimated blood loss (mL): 20 Complications: None Post-op Plan: Patient recover in PACU. Recovered patient will return to the floor. Cultures taken intraoperatively and we will continue to monitor. Patient to continue empiric IV antibiotics. Patient has Hemovac drain on in place and will likely pull postop day 2 depending on output. Continue with pain control. Nonweightbearing left below the knee amputation stump. Keep dressing on and in place until postop day 2. May reinforce if dressing becomes saturated. Coding Level of Care Code Acute Statistical Programmer for Kim Mitchell
--- NOTE | 2022-04-17 12:13 | PC.CHAP ---
Pastoral Care Encounter/Spiritual Assessment Type of Contact [] Declined home care rn visit [] Patient/Family/Request visit [] Outpatient visit [] Follow-up visit [] Physician referral [] Code/Alert [x] Routine visit [] Staff referral [] Actively dying [] Patient sleeping [] Family support [] [x] Out of room [] Palliative care [] [] Receiving care in room [] Pre-surgical visit [] Trauma [] Long length of stay [] ICU visit [] Other: Relational/Emotional Strength [] Patient feels connected with others/family/visitors/staff [] Distress [] Loneliness/isolation [] Abandonment Spirituality of Patient [] Person of Vanessa [] Attends Uatsdin of their Vanessa [] Believes in Prayer [] Reads Bible or Confucianism materials [] There are Spiritual issues to be addressed Costumer Assistant Interventions [] Prayer [] Active listening [] Non-anxious presence [] Spiritual/emotional support [] Crisis/trauma care [] Spiritual counseling [] Bereavement support [] Provided bereavement packet [] Provided Bible/devotional materials [] Provided toy/stuffed animal, coloring book to patient or family member [] Provided Communion [] Anointing/Violet [] Salvation [] Completed spiritual assessment [] Other: Impact on Illness or Injury [] Angry [] Fearful [] Anxious [] Often cries [] Exhaustion [] Unable to work [] Unable to attend scientology [] Unable to walk/stand [] Unable to read [] Unable to drive [] Unable to eat/drink [] Unable to sleep [] Unable to be with family [] Patient intubated [] Other: Summary Time spent with patient
--- NOTE | 2022-04-17 12:22 | P.OP_ITS ---
Operative Report Date of procedure: April 17, 2022 Pre-op diagnosis: Preop Diagnosis Septic patellar bursitis and abscess left knee Post-op diagnosis: Same Post-op findings: See procedure note Procedure done: Left knee irrigation and debridement with cultures Implants: None Specimens removed/disposition: Cultures taken of purulent fluid of abscess Pathology: None sent Surgeon: Yaya Salas DO Estimated blood loss (mL): 20 37 minutes IV fluids: See anesthesia record Complications: None Findings: See operative note Condition: stable Disposition: floor Brief History: Patient presents to the emergency department yesterday with fevers as well as significant increasing pain and swelling of the left knee anterior aspect over the inferior pole the patella. Work-up in the emergency department showed patient had a septic prepatellar bursa with abscess. The incision to her left below the knee amputation stump which had required multiple debridements appeared well-healed with no signs of infection communicating with the incision and stump. No involvement of the joint is appreciated as patient is unable to actively flex and extend knee. Patient had acute elevation of CRP 160. Given her fever and exam findings detailed discussion about nonoperative versus operative intervention. Ultimately I think the patient's best interest as she is acutely sick to undergo left knee incision and drainage. We talked about the potential involvement of the knee joint or the below the knee amputation stump and that this may complicate and develop healing issues of her stump. She understands the risk benefits complications alternatives surgery and elects to proceed with surgical intervention. She was admitted by the hospitalist team medically optimized and taken to surgery the following day. She was seen evaluated in the preoperative holding area consent was shown to patient she understands and agrees to proceed with left knee irrigation debridement with cultures. All questions answered. Procedure: Patient seen and evaluated in the preoperative holding area confirmed the consent with the patient verifying correct patient, correct site for surgery as well as correct procedure. Patient was then seen evaluated by the anesthesia team. She was then taken back into the operative suite and underwent general anesthesia per the anesthesia department. Patient had already received antibiotics during her hospital admission by the primary team given patient's febrile as well as elevated inflammatory markers and concern for infection. Given this we continued her scheduled empiric antibiotics until cultures. Once patient was appropriately anesthetized the left lower extremity was then placed into a nonsterile tourniquet. Sticky U draped applied. The left lower extremity was then prepped and draped in standard orthopedic fashion. Final timeout was performed. Standard anterior midline knee incision was then made starting at the inferior pole of the patella to the tibial tubercle which was centered directly over patient's fluctuant abscess. Incision made through skin and subcutaneous tissue immediate rupture of purulent fluid was noted of the prepatellar bursa region. Immediately cultures were taken for aerobic and anaerobic and sent for microbiology. Once the entire abscess was then evacuated then evaluated the entirety of the wound bed which was 8 cm x 6 cm x 4 cm in size. There was no violation into the knee joint this was all in the prepatellar bursa. The prep atellar bursa had multiple areas of necrotic bursal tissue. As result a sharp scalpel excision with knife as well as electrocautery and rongeur removing subcutaneous tissue as well as fat and fascia. I did not violate the extensor mechanism or joint capsule. Once the bursal capsule that was containing the abscess was ellipsed and debrided to its entirety I then irrigated the wound bed with Pulsavac normal saline 3 L. Wound bed was then once again thoroughly debrided with rongeur and removing all necrotic tissue including fat and fascia once this was done I completed 3 more liters of normal saline. At this point time we had a clean wound bed with noticeable space possible for accumulation. This point time a 15 Hemovac drain was then laid within the wound bed with 10 holes. This was brought out through a lateral aspect of the knee. I then used 1 g of Vanco powder into the wound bed. Next 0 PDS suture was used making deep sutures directly onto the fascia to adhere the deep subcutaneous layer and close down the space. These were all done in interrupted fashion. Next running 0 PDS suture was made on the subcutaneous deep tissue and then 3-0 PDS was used to close the subcutaneous fat. Interrupted horizontal mattress 2-0 PDS suture was then used to close the skin. Tourniquet was deflated hemostasis adequate. Drain was hooked up to the Hemovac. Perform over the incisions with 4 x 4 ABDs Curlex and an Miguel A wrap was applied. Patient was then awakened from anesthesia and taken to PACU in stable condition. Position: Patient should be nonweightbearing left lower extremity. We will keep Hemovac drain and monitor output to help prevent filling up of patient's space. Continue empiric antibiotics and follow patient's intraoperative cultures. Patient will return to the floor.
[2022-04-17 12:28] LABS: Glucose Point of Care 156 mg/dL (70-110)
[2022-04-17] MEDS: fentaNYL 50 mcg/mL INJ 2mL IVP (12:40)
--- NOTE | 2022-04-17 12:43 | P.PN_ITS ---
Subjective Subjective: Patient seen and examined this morning, was complaining of nausea overnight has been afebrile, due for OR today. Medications: Medication Review Details: Generic Name Dose Route Start Last Admin Trade Name Ana Cristina PRN Reason Stop Dose Admin Amlodipine Besylat e 10 mg 04/17/22 09:00 04/17/22 08:39 Amlodipine 10 Mg Tablet PO 10 mg DAILY DAWSON Administration Doxepin HCl 10 mg 04/16/22 21:00 04/16/22 22:38 Doxepin 10 Mg Ca psule PO 10 mg BEDTIME DAWSON Administration Duloxetine HCl 30 mg 04/16/22 21:00 04/17/22 08:39 Duloxetine 30 Mg Capsule PO 30 mg TID DAWSON Administration Hydromorphone HCl 0.2 mg 04/16/22 20:35 04/17/22 06:42 Hydromorphone 1 Mg/Ml Inj 1 Ml IVP 0.2 mg Q4H PRN Administration pain Sodium Chloride 1,000 mls @ 100 m ls/hr 04/16/22 19:00 04/17/22 09:26 Sodium Chloride 0.9% IV Infused .Q10H DAWSON Infusion Piperacillin Sod/T azobactam 50 mls @ 12.5 mls /hr 04/16/22 20:35 04/17/22 05:45 Sod 3.375 gm/ So dium Chloride IV 12.5 mls/hr Q8H DAWSON Administration Protocol Vancomycin HCl 1,0 00 mg/ 250 mls @ 250 mls /hr 04/17/22 04:00 04/17/22 07:31 Sodium Chloride IV Infused Q12H DAWSON Infusion Sodium Chloride 1,000 mls @ 30 ml s/hr 04/17/22 10:15 04/17/22 10:19 Sodium Chloride 0.9% IV 04/18/22 10:14 30 mls/hr .Q24H DAWSON Administration Insulin Human Lisp ro 0 unit 04/17/22 08:00 04/17/22 07:33 Insulin Lispro 1 00 Unit/1 Ml SUBCUT Not Given TIDWM DAWSON Protocol Metoprolol Succina te 50 mg 04/17/22 09:00 04/17/22 08:39 Metoprolol Succi mili Er (24 Hr) 25 Mg Tablet PO 50 mg DAILY DAWSON Administration Ondansetron HCl 4 mg 04/16/22 20:35 04/17/22 04:28 Ondansetron 2 Mg /Ml Sdv 2 Ml IVP 4 mg Q6H PRN Administration NAUSEA AND VOMITI NG Senna/Docusate Sod ium 1 tab 04/17/22 09:00 04/17/22 08:39 Sennosides-Docus ate Tablet PO 1 tab DAILY DAWSON Administration Vitals/I&O/Wt Last Vital Signs Temp 97.6 F 04/17/22 12:06 Pulse 85 04/17/22 12:25 Resp 18 04/17/22 12:25 BP 137/75 04/17/22 12:25 Pulse Ox 96 04/17/22 12:25 O2 Del Method 04/17/22 12:25 O2 Flow Rate 6 04/17/22 12:06 04/16/22 04/17/22 04/17/22 22:59 06:59 14:59 Intake Total 1708.333 / 1708.333 50 / 0429.596 7213 / 1455 Output Total 950 / 950 170 / 170 Balance 1708.333 / 1708.333 -900 / 785.966 2396 / 1285 Weight last 48 hrs Weight 73.028 kg Physical Exam Resp: COMMON NORMALS: clear to auscultation bilaterally AUSCULTATION: clear to auscultation bilaterally Cardio: COMMON NORMALS: regular rate, regular rhythm, S1 normal heart sound present, S2 normal heart sound present, No gallops present (Cardio), No murmurs present (Cardio), No rub (Cardio) and Peripheral pulses 2+ throughout RATE: regular rate RHYTHM: regular rhythm HEART SOUNDS: S1 normal heart sound present and S2 normal heart sound present PERIPHERAL PULSES: Peripheral pulses 2+ throughout GI: COMMON NORMALS: Normal to inspection, nondistended, normoactive bowel sounds present, Soft to palpation, non-tender, No hepatosplenomegaly present and no masses AUSCULTATION: Yes normoactive bowel sounds PALPATION: Yes Soft to palpation and Yes No hepatosplenomegaly present RECTAL EXAM: deferred Extremity: COMMON NORMALS: no clubbing, cyanosis or edema and no pedal edema NARRATIVE EXTREMITY EXAM: Left knee joint, warm and tender with erythema Urinary Catheter Management: Riojas: Cath Placed During This Visit: yes Reason for Continuing Indwelling Catheter: Accurate Measurement of Urinary Output in Critically Ill Patients Urinary Catheter Date of Insertion: 04/16/22 Urinary Catheter Time of Insertion: 20:52 Data : 04/17/22 01:40 04/17/22 01:40 Micro: Microbiology 04/16/22 14:47 Blood Culture - Preliminary Blood SPECIMEN COLLECTED 04/16/22 14:54 Blood Culture - Preliminary Blood SPECIMEN COLLECTED A&P Assessment and plan (1) Septic prepatellar bursitis of left knee: Status: Acute (2) Chronic pain: Status: Acute (3) Hyperglycemia: Status: Acute (4) Diabetes mellitus type 1: Status: Chronic Qualifiers: Diabetes mellitus complication status: with hyperglycemia Qualified Code(s): E10.65 - Type 1 diabetes mellitus with hyperglycemia (5) Diabetic gastroparesis: Status: Chronic (6) Anemia of chronic disease: Status: Acute (7) Below-knee amputation of left lower extremity: Status: Acute (8) Insomnia: Status: Acute Qualifiers: Insomnia type: due to medical condition Qualified Code(s): G47.01 - Insomnia due to medical condition (9) GERD (gastroesophageal reflux disease): Status: Acute Qualifiers: Esophagitis presence: without esophagitis Qualified Code(s): K21.9 - G teresa-esophageal reflux disease without esophagitis (10) ALEJANDRO (generalized anxiety disorder): Status: Acute Plan Left knee abscess 4.9 x 2 x 6.4 cm Infrapatellar abscess Patient is endorsing fever, rigors and chills, miild fever at the time of my evaluation no signs of sepsis Patient is stating that she has not suffered with any injury or falls however she has not been using any prosthesis History of MRSA infection in the past which was treated with p.o. antibiotics Start broad-spectrum antibiotics Blood cultures taken in the ER around 2:47 PM Patient is diabetic which will require broad-spectrum initially further antibiotic de-escalation will be made after culture and sensitivity report Will cover with vancomycin and Zosyn for now Keep her n.p.o. after midnight Opiates currently is along bowel regimen No active signs of sepsis Check D-dimer inflammatory markers Place Riojas catheter for surgery tomorrow Hypokalemia: 80 mEq IV potassium, check magnesium level Type 2 diabetes Consistent carb diet for now n.p.o. 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 Coding Level of Care Code Acute Muffler Installer for Chg Fwd Diagnoses Septic prepatellar bursitis of left knee M71.162 Chronic pain G89.29 Hyperglycemia R73.9 Diabetes mellitus type 1 E10.65 Diabetes mellitus complication status: with hyperglycemia Diabetic gastroparesis E11.43; K31.84 Anemia of chronic disease D63.8 Below-knee amputation of left lower extremity S88.112A Insomnia G47.01 Insomnia type: due to medical condition GERD (gastroesophageal reflux disease) K21.9 Esophagitis presence: without esophagitis ALEJANDRO (generalized anxiety disorder) F41.1
[2022-04-17] MEDS: ketorolac 30 mg/mL INJ 15 MG IVP ×2 (13:14→20:53)
[2022-04-17] MEDS: acetaminophen 500 mg Tablet 1000 MG PO ×2 (13:14→20:53)
--- NOTE | 2022-04-17 14:00 | ANE.PACU2 ---
Inpatient post-anesthesia follow up: Airway intact: Yes Vital signs: Temperature 97.7 F Pulse Rate 84 Respiratory Rate 18 Blood Pressure 128/68 Pulse Oximetry 97 Oxygen Delivery Me thod Room Air Oxygen Flow Rate 6 Fraction of Inspir ed Oxygen Hydration adequate: Yes Nausea and vomiting: No Pain level: 1 Mental status: Baseline
[2022-04-17] MEDS: sodium chloride 0.9% 1,000 ML 100 ML IV (14:23)
[2022-04-17 17:01] LABS: Glucose Point of Care 269 mg/dL (70-110)
[2022-04-17] MEDS: insulin lispro 100 unit/1 mL SUBCUT (17:38)
[2022-04-17] MEDS: oxyCODONE 5 mg IR Tab/Cap PO (17:39)
[2022-04-17] MEDS: sennosides-docusate Tablet 2 TAB PO (17:39)
--- NOTE | 2022-04-17 20:20 | PM.PACU ---
PACU note Narrative: Pt seen and examined postop on the floor. Pt states Left knee feels improved but burning pain at incision noted. No other issues at this time. Tolerating diet. Hemovac on and in place. Exam: awake (no acute distress. Dressing in place and clean dry and intact. Hemovac in place with bloody outpt. Pt states SILT to L BKA. ) Disposition: back to floor
[2022-04-17] MEDS: doxepin 10 mg Capsule PO (20:53)
[2022-04-17 20:58] LABS: Glucose Point of Care 402 mg/dL (70-110)
[2022-04-17] MEDS: lactated ringers 1,000 ML 999 ML IV (22:20)
[2022-04-17] MEDS: insulin regular-human 10 UNIT in SYRINGE 1 EACH IVP (22:20)
[2022-04-18] VITALS (12 sets, daily range): BP systolic 123–150; BP diastolic 69–81; PULSE 70–84; RESP 16–18; TEMP 36.6–36.7; O2SAT 96–99
[2022-04-18] MEDS: enoxaparin 30 mg/0.3 mL Syringe SUBCUT (01:03)
[2022-04-18] MEDS: oxyCODONE 5 mg IR Tab/Cap PO ×4 (01:03→17:56)
[2022-04-18] MEDS: ketorolac 30 mg/mL INJ 15 MG IVP ×3 (01:03→12:14)
[2022-04-18] MEDS: sodium chloride 0.9% 1,000 ML 100 ML IV (01:06)
[2022-04-18 03:39] LABS: Vancomycin Trough 17.3 ug/mL (10-15)
[2022-04-18] MEDS: vancomycin 1,000 MG in sodium chloride 0.9% 250 ML 250 MG IV ×2 (04:30→15:30)
[2022-04-18] MEDS: piperacillin-tazobactam 3.375 GM in sodium chloride 0.9% (plus) 50 ML IV ×3 (06:15→21:00)
[2022-04-18] MEDS: acetaminophen 500 mg Tablet 1000 MG PO ×3 (06:15→20:39)
[2022-04-18] MEDS: multivitamin therapeutic Tablet 1 TAB PO (08:26)
[2022-04-18] MEDS: metoprolol succinate ER (24 HR) 25 mg Tablet 50 MG PO (08:26)
[2022-04-18] MEDS: duloxetine 30 mg Capsule PO ×3 (08:26→20:39)
[2022-04-18] MEDS: cholecalciferol (vitamin D3) 1,000 unit Tablet 1000 UNIT PO (08:26)
[2022-04-18] MEDS: amlodipine 10 mg Tablet PO (08:26)
[2022-04-18] MEDS: sennosides-docusate Tablet 1 TAB PO (08:27)
[2022-04-18] MEDS: HYDROmorphone 1 mg/mL INJ 1 mL 0.2 MG IVP ×3 (09:23→20:39)
[2022-04-18 09:35] LABS: Glucose Point of Care 175 mg/dL (70-110)
[2022-04-18] MEDS: ondansetron 2 mg/ML SDV 2 mL 4 MG IVP (09:47)
[2022-04-18] MEDS: insulin lispro 100 unit/1 mL SUBCUT ×2 (09:47→12:20)
--- NOTE | 2022-04-18 11:40 | PC.OT ---
OT EVALUATION ORDERS RECEIVED. PATIENT DEMONSTRATES NO DEFICITS IN ADL. NO FURTHER SKILLED OT REQUIRED.
[2022-04-18 11:51] LABS: Glucose Point of Care 160 mg/dL (70-110)
--- NOTE | 2022-04-18 13:42 | P.PN_ITS ---
Subjective Subjective: Patient seen and examined this morning, was complaining of nausea as well as left knee pain, s/p lt knee I&D. I&D has revealed: septic prepatellar bursa with abscess. Medications: Medication Review Details: Generic Name Dose Route Start Last Admin Trade Name Freq PRN Reason Stop Dose Admin Amlodipine Besylat e 10 mg 04/17/22 09:00 04/17/22 08:39 Amlodipine 10 Mg Tablet PO 10 mg DAILY DAWSON Administration Doxepin HCl 10 mg 04/16/22 21:00 04/16/22 22:38 Doxepin 10 Mg Ca psule PO 10 mg BEDTIME DAWSNO Administration Duloxetine HCl 30 mg 04/16/22 21:00 04/17/22 08:39 Duloxetine 30 Mg Capsule PO 30 mg TID DAWSON Administration Hydromorphone HCl 0.2 mg 04/16/22 20:35 04/17/22 06:42 Hydromorphone 1 Mg/Ml Inj 1 Ml IVP 0.2 mg Q4H PRN Administration pain Sodium Chloride 1,000 mls @ 100 m ls/hr 04/16/22 19:00 04/17/22 09:26 Sodium Chloride 0.9% IV Infused .Q10H DAWSON Infusion Piperacillin Sod/T azobactam 50 mls @ 12.5 mls /hr 04/16/22 20:35 04/17/22 05:45 Sod 3.375 gm/ So dium Chloride IV 12.5 mls/hr Q8H DAWSON Administration Protocol Vancomycin HCl 1,0 00 mg/ 250 mls @ 250 mls /hr 04/17/22 04:00 04/17/22 07:31 Sodium Chloride IV Infused Q12H DAWSON Infusion Sodium Chloride 1,000 mls @ 30 ml s/hr 04/17/22 10:15 04/17/22 10:19 Sodium Chloride 0.9% IV 04/18/22 10:14 30 mls/hr .Q24H DAWSON Administration Insulin Human Lisp ro 0 unit 04/17/22 08:00 04/17/22 07:33 Insulin Lispro 1 00 Unit/1 Ml SUBCUT Not Given TIDWM DAWSON Protocol Metoprolol Succina te 50 mg 04/17/22 09:00 04/17/22 08:39 Metoprolol Succi mili Er (24 Hr) 25 Mg Tablet PO 50 mg DAILY DAWSON Administration Ondansetron HCl 4 mg 04/16/22 20:35 04/17/22 04:28 Ondansetron 2 Mg /Ml Sdv 2 Ml IVP 4 mg Q6H PRN Administration NAUSEA AND VOMITI NG Senna/Docusate Sod ium 1 tab 04/17/22 09:00 04/17/22 08:39 Sennosides-Docus ate Tablet PO 1 tab DAILY DAWSON Administration Vitals/I&O/Wt Last Vital Signs Temp 97.9 F 04/18/22 11:09 Pulse 75 04/18/22 11:09 Resp 18 04/18/22 12:13 BP 150/80 04/18/22 11:09 Pulse Ox 96 04/18/22 11:09 O2 Del Method 04/18/22 11:09 O2 Flow Rate 6 04/17/22 12:06 04/17/22 04/18/22 04/18/22 22:59 06:59 14:59 Intake Total 1053.433 / 3658.433 1460 / 5118.433 1650 / 1650 Output Total 1200 / 1370 825 / 2195 Balance -146.567 / 2288.433 635 / 2923.433 1650 / 1650 Weight last 48 hrs Weight 73.028 kg Physical Exam Resp: COMMON NORMALS: clear to auscultation bilaterally AUSCULTATION: clear to auscultation bilaterally Cardio: COMMON NORMALS: regular rate, regular rhythm, S1 normal heart sound present, S2 normal heart sound present, No gallops present (Cardio), No murmurs present (Cardio), No rub (Cardio) and Peripheral pulses 2+ throughout RATE: regular rate RHYTHM: regular rhythm HEART SOUNDS: S1 normal heart sound present and S2 normal heart sound present PERIPHERAL PULSES: Peripheral pulses 2+ throughout GI: COMMON NORMALS: Normal to inspection, nondistended, normoactive bowel sounds present, Soft to palpation, non-tender, No hepatosplenomegaly present and no masses AUSCULTATION: Yes normoactive bowel sounds PALPATION: Yes Soft to palpation and Yes No hepatosplenomegaly present RECTAL EXAM: deferred Extremity: COMMON NORMALS: no clubbing, cyanosis or edema and no pedal edema NARRATIVE EXTREMITY EXAM: Left knee joint, warm and tender with erythema Urinary Catheter Management: Riojas: Cath Placed During This Visit: yes Reason for Continuing Indwelling Catheter: Required Immobilization for Trauma or Surgery or Anesthesia Urinary Catheter Date of Insertion: 04/16/22 Urinary Catheter Time of Insertion: 20:52 Data : 04/17/22 01:40 04/17/22 01:40 Micro: Microbiology 04/16/22 14:54 Blood Culture - Preliminary Blood NEGATIVE TO DATE 04/16/22 14:47 Blood Culture - Preliminary Blood NEGATIVE TO DATE A&P Assessment and plan (1) Septic prepatellar bursitis of left knee: Status: Acute (2) Chronic pain: Status: Acute (3) Hyperglycemia: Status: Acute (4) Diabetes mellitus type 1: Status: Chronic Qualifiers: Diabetes mellitus complication status: with hyperglycemia Qualified Code(s): E10.65 - Type 1 diabetes mellitus with hyperglycemia (5) Diabetic gastroparesis: Status: Chronic (6) Anemia of chronic disease: Status: Acute (7) Below-knee amputation of left lower extremity: Status: Acute (8) Insomnia: Status: Acute Qualifiers: Insomnia type: due to medical condition Qualified Code(s): G47.01 - Insomnia due to medical condition (9) GERD (gastroesophageal reflux disease): Status: Acute Qualifiers: Esophagitis presence: without esophagitis Qualified Code(s): K21.9 - Gastro-esophageal reflux disease without esophagitis (10) ALEJANDRO (generalized anxiety disorder): Status: Acute Plan Left knee abscess 4.9 x 2 x 6.4 cm Infrapatellar abscess Patient is endorsing fever, rigors and chills, miild fever at the time of my evaluation no signs of sepsis Patient is stating that she has not suffered with any injury or falls however she has not been using any prosthesis History of MRSA infection in the past which was treated with p.o. antibiotics Start broad-spectrum antibiotics Blood cultures taken in the ER around 2:47 PM Patient is diabetic which will require broad-spectrum initially further antibiotic de-escalation will be made after culture and sensitivity report Will cover with vancomycin and Zosyn for now Keep her n.p.o. after midnight Opiates currently is along bowel regimen No active signs of sepsis Check D-dimer inflammatory markers Place Riojas catheter for surgery tomorrow Hypokalemia: 80 mEq IV potassium, check magnesium level Type 2 diabetes Consistent carb diet for now n.p.o. 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
--- NOTE | 2022-04-18 15:04 | PM.PN ---
Subjective Subjective: Patient seen and examined this morning. States knee feels better but still having some pain. Per nursing record 25 cc out of Hemovac drain. Dressing on in place clean dry and intact. No other issues at this time. Patient n.p.o. at midnight for recheck of incision and pull drain tomorrow. If she is reaccumulated or worsened she may need a repeat irrigation debridement. Vitals/I&O/Wt Last Vital Signs Temp 97.9 F 04/18/22 11:09 Pulse 75 04/18/22 11:09 Resp 18 04/18/22 12:13 BP 150/80 04/18/22 11:09 Pulse Ox 96 04/18/22 11:09 O2 Del Method 04/18/22 11:09 O2 Flow Rate 6 04/17/22 12:06 04/18/22 04/18/22 04/18/22 06:59 14:59 22:59 Intake Total 1460 / 5118.433 1650 / 1650 Output Total 825 / 2195 1600 / 1600 Balance 635 / 2923.433 1650 / 1650 -1600 / 50 Physical Exam Narrative: Examination left below the knee amputation stump dressing on and in place clean dry and intact. Patient endorses sensation intact light touch while touching resting. Hemovac drain on in place bloody output noted. No purulence noted within the drain or tube. Patient is able to actively bend and extend knee minimal discomfort. No pain with micromotion of the left knee. Urinary Catheter Management: Riojas: Cath Placed During This Visit: yes Reason for Continuing Indwelling Catheter: Required Immobilization for Trauma or Surgery or Anesthesia Urinary Catheter Date of Insertion: 04/16/22 Urinary Catheter Time of Insertion: 20:52 Data : 04/17/22 01:40 04/17/22 01:40 Micro: Microbiology 04/16/22 14:54 Blood Culture - Preliminary Blood NEGATIVE TO DATE 04/16/22 14:47 Blood Culture - Preliminary Blood NEGATIVE TO DATE A&P Assessment and plan (1) Septic prepatellar bursitis of left knee: Status: Acute Plan - Diet today -N.p.o. at midnight -Nonweightbearing left BKA -Leave dressing on and in place -And for dressing takedown tomorrow as well as possible drain removal if output continues to maintain minimal -Continue antibiotics per primary team -Monitor intraoperative cultures -Hospitalist on board and appreciate their management. -Orthopedics will reevaluate patient tomorrow morning as long as no significant reaccumulation and incision looks well there will be no further plan for surgical intervention. Attestations Medical Necessity Statement*: Patient had septic prepatellar bursitis with abscess underwent I&D requiring monitoring of cultures antibiotics postoperative rehab. 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
[2022-04-18 16:38] LABS: Glucose Point of Care 116 mg/dL (70-110)
[2022-04-18] MEDS: sennosides-docusate Tablet 2 TAB PO (17:56)
[2022-04-18] MEDS: doxepin 10 mg Capsule PO (20:39)
[2022-04-18] MEDS: insulin glargine 100 units/1 mL 20 UNIT SUBCUT (20:55)
[2022-04-18 21:23] LABS: Glucose Point of Care 187 mg/dL (70-110)
[2022-04-19] VITALS (15 sets, daily range): BP systolic 108–153; BP diastolic 64–86; PULSE 64–77; RESP 14–18; TEMP 36.4–36.8; O2SAT 96–98
[2022-04-19] MEDS: oxyCODONE 5 mg IR Tab/Cap PO ×4 (04:27→22:04)
[2022-04-19] MEDS: acetaminophen 500 mg Tablet 1000 MG PO ×3 (04:28→22:00)
[2022-04-19] MEDS: vancomycin 1,000 MG in sodium chloride 0.9% 250 ML 200 MG IV (04:31)
[2022-04-19] MEDS: piperacillin-tazobactam 3.375 GM in sodium chloride 0.9% (plus) 50 ML IV ×3 (04:36→21:59)
[2022-04-19 05:28] LABS: Basophils % 0.5 %; Eosinophils % 0.7 %; Hematocrit 26.1 % (37.0-47.0); Hemoglobin 8.2 g/dL (11.5-15.3); Lymphocytes # 1.7 10^3/uL (0.8-4.8); Lymphocytes % 27.9 %; Mean Corpuscular HGB Conc 31.4 g/dL (30.0-36.0); Mean Corpuscular Hemoglobin 26.2 pg (28.0-34.0); Mean Corpuscular Volume 83.4 fl (81-99); Mean Platelet Volume 8.9 fL (7.4-10.4); Monocytes # 0.3 10^3/uL (0.2-0.9); Neutrophils # 4.03 10^3/uL (1.8-7.7); Neutrophils % 65.6 %; Nucleated Red Blood Cells % 0 %; Platelet Count 329 10^3/cmm (130-400); Red Blood Count 3.13 10^6/uL (4.1-5.3); White Blood Count 6.1 10^3/uL (4.0-10.0)
[2022-04-19 05:48] LABS: Alanine Aminotransferase 34 U/L (0-33); Albumin Level 2.7 g/dL (3.5-5.2); Alkaline Phosphatase 153 U/L (35-105); Anion Gap 11.4 (5-19); Aspartate Amino Transferase 17 U/L (0-32); Blood Urea Nitrogen 9 mg/dL (6-20); C Reactive Protein 65.9 mg/L (0.0-4.9); Calcium 8.6 mg/dL (8.5-10.5); Carbon Dioxide 24 mmol/L (22-29); Chloride 101 mmol/L (98-107); Globulin 3.1 g/dL (1.3-4.6); Glomerular Filtration Rate 77.9 mL/min (90-130); Glucose 120 mg/dL (65-115); Osmolality Calculated 276 mOsm/kg (285-295); Potassium 3.4 mmol/L (3.5-5.1); Sodium 133 mmol/L (136-145); Total Bilirubin 0.2 mg/dL (0.15-1.2); Total Protein 5.8 g/dL (6.6-8.7)
[2022-04-19] MEDS: HYDROmorphone 1 mg/mL INJ 1 mL 0.2 MG IVP ×3 (05:54→19:13)
[2022-04-19 06:35] LABS: Glucose Point of Care 128 mg/dL (70-110)
[2022-04-19] MEDS: sennosides-docusate Tablet 2 TAB PO ×2 (09:02→17:27)
[2022-04-19] MEDS: sennosides-docusate Tablet 1 TAB PO (09:02)
[2022-04-19] MEDS: duloxetine 30 mg Capsule PO ×3 (09:02→22:00)
[2022-04-19] MEDS: multivitamin therapeutic Tablet 1 TAB PO (09:02)
[2022-04-19] MEDS: amlodipine 10 mg Tablet PO (09:03)
[2022-04-19] MEDS: metoprolol succinate ER (24 HR) 25 mg Tablet 50 MG PO (09:08)
[2022-04-19] MEDS: cholecalciferol (vitamin D3) 1,000 unit Tablet 1000 UNIT PO (09:09)
--- NOTE | 2022-04-19 10:44 | P.PN_ITS ---
Subjective Subjective: Patient seen and examined this morning. Patient states she is steadily improved. Still complains of some pain in her knee. Minimal drain output review of nursing chart over the last 24 hours only 45 mL. Still bloody serosanguineous output. Patient denies any fevers or chills overnight. No ot her complaints at this time. Of note patient had a trended CRP which showed significant trending downward from 160 CRP to 60 CRP meaning she is responded to treatment Vitals/I&O/Wt Last Vital Signs Temp 98.2 F 04/19/22 08:00 Pulse 69 04/19/22 08:00 Resp 16 04/19/22 10:30 BP 143/81 04/19/22 08:00 Pulse Ox 97 04/19/22 08:00 O2 Del Method 04/19/22 08:00 O2 Flow Rate 6 04/18/22 20:00 04/18/22 04/19/22 04/19/22 22:59 06:59 14:59 Intake Total 540 / 2190 50 / 2240 300 / 300 Output Total 2250 / 2250 1400 / 3650 Balance -1710 / -60 -1350 / -1410 300 / 300 Physical Exam Narrative: Examination left lower extremity stable dressing that is clean dry and intact. This subsequently taken down Hemovac drain still on in place. Incision inspected is clean dry and intact with sutures in place. No drainage or palpable fluctuance or reaccumulation of abscess. Drain subsequently pulled. Patient has mild warmth but no significant erythema or cellulitic changes over the prepatellar bursa region which is resolved from previous examinations. Patient is able to actively flex and extend her knee with minimal discomfort no pain with micromotion of the left knee. No palpable joint effusion. Incision from BKA is well-healed with no signs of infection or dehiscence. Left BKA stump is warm well perfused and sensation intact to light touch. Urinary Catheter Management: Riojas: Cath Placed During This Visit: yes Reason for Continuing Indwelling Catheter: Required Immobilization for Trauma or Surgery or Anesthesia Urinary Catheter Date of Insertion: 04/16/22 Urinary Catheter Time of Insertion: 20:52 Data : 04/19/22 05:08 04/19/22 05:08 Micro: Microbiology 04/17/22 11:20 Gram Stain - Final Knee - Right Abscess Culture - Preliminary Staphylococcus aureus A&P Assessment and plan (1) Septic prepatellar bursitis of left knee: Status: Acute Plan - Dressings changed today Hemovac drain pulled -New dressing applied by nursing staff -No plan for further orthopedic surgical intervention at this time, incision healing well no reaccumulation of abscess -Continue with IV antibiotics -Operative cultures have grown Staph aureus -Defer to primary team for antibiotic recommendations -Pain control -This point time patient stable from an orthopedic standpoint. No plan for further repeat washout. Patient may have a diet. Orthopedic surgery team will sign off patient at this time and follow peripherally. If there is any question pertaining to patient care feel free to contact myself Dr. Salas or if patient has any acute change in symptoms. Would recommend patient discharged home on p.o. antibiotics at the discretion of the primary team.. She should be nonweightbearing to the left below the knee amputation stump. Keep incision clean dry and intact. Would recommend she follow-up with me in 2 weeks for evaluation. Thank you for allow me to partake in the care of this patient. Attestations Medical Necessity Statement*: Patient had a left septic prepatellar bursitis with abscess. Requiring hospitalization IV antibiotics as well as surgery for I&D. 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
--- NOTE | 2022-04-19 10:48 | PM.PN ---
Subjective Subjective: Patient seen and examined this morning. Complain of moderate pain in the lt knee, minimal output in Hemovac. Has been afebrile, wound culture is growing staph aureus, blood culture has been negative so far. Depending upon the sensitivity, will plan to discharge her on IV antibiotics at home. Medications: Medication Review Details: Generic Name Dose Route Start Last Admin Trade Name Freq PRN Reason Stop Dose Admin Acetaminophen 1,000 mg 04/17/22 13:07 04/19/22 04:28 Acetaminophen 50 0 Mg Tablet PO 1,000 mg Q8H DAWSON Administration Amlodipine Besylat e 10 mg 04/17/22 09:00 04/19/22 09:03 Amlodipine 10 Mg Tablet PO 10 mg DAILY DAWSON Administration Doxepin HCl 10 mg 04/16/22 21:00 04/18/22 20:39 Doxepin 10 Mg Ca psule PO 10 mg BEDTIME DAWSON Administration Duloxetine HCl 30 mg 04/16/22 21:00 04/19/22 09:02 Duloxetine 30 Mg Capsule PO 30 mg TID DAWSON Administration Enoxaparin Sodium 30 mg 04/18/22 00:30 04/18/22 23:58 Enoxaparin 30 Mg /0.3 Ml Syringe SUBCUT Not Given Q24H DAWSON Hydromorphone HCl 0.2 mg 04/16/22 20:35 04/19/22 05:54 Hydromorphone 1 Mg/Ml Inj 1 Ml IVP 0.2 mg Q4H PRN Administration pain Piperacillin Sod/T azobactam 50 mls @ 12.5 mls /hr 04/16/22 20:35 04/19/22 09:00 Sod 3.375 gm/ So dium Chloride IV Infused Q8H DAWSON Infusion Protocol Vancomycin HCl 1,0 00 mg/ 250 mls @ 250 mls /hr 04/17/22 04:00 04/19/22 09:00 Sodium Chloride IV Infused Q12H DAWSON Infusion Insulin Glargine 20 unit 04/18/22 21:00 04/18/22 20:55 Insulin Glargine 100 Units/1 Ml SUBCUT 20 unit BEDTIME DAWSON Administration Insulin Human Lisp ro 0 unit 04/17/22 08:00 04/19/22 08:56 Insulin Lispro 1 00 Unit/1 Ml SUBCUT Not Given TIDWM [facility] Protocol Metoprolol Succina te 50 mg 04/17/22 09:00 04/19/22 09:08 Metoprolol Succi mili Er (24 Hr) 25 Mg Tablet PO 50 mg DAILY DAWSON Administration Multivitamins Ther apeutic 1 tab 04/18/22 09:00 04/19/22 09:02 Multivitamin The rapeutic Tablet PO 1 tab DAILY DAWSON Administration Ondansetron HCl 4 mg 04/16/22 20:35 04/18/22 09:47 Ondansetron 2 Mg /Ml Sdv 2 Ml IVP 4 mg Q6H PRN Administration NAUSEA AND VOMITI NG Oxycodone HCl 5 - 10 mg 04/17/22 13:07 04/19/22 10:30 Oxycodone 5 Mg I r Tab/Cap PO 10 mg Q4H PRN Administration MODERATE TO SEVER E PAIN Senna/Docusate Sod ium 1 tab 04/17/22 09:00 04/19/22 09:02 Sennosides-Docus ate Tablet PO 1 tab DAILY DAWSON Administration Senna/Docusate Sod ium 2 tab 04/17/22 18:00 04/19/22 09:02 Sennosides-Docus ate Tablet PO 2 tab BID DAWSON Administration Vitamin D 1,000 unit 04/18/22 09:00 04/19/22 09:09 Cholecalciferol (Vitamin D3) 1,000 Unit Tablet PO 1,000 unit DAILY DAWSON Administration Vitals/I&O/Wt Last Vital Signs Temp 98.2 F 04/19/22 08:00 Pulse 69 04/19/22 08:00 Resp 16 04/19/22 10:30 BP 143/81 04/19/22 08:00 Pulse Ox 97 04/19/22 08:00 O2 Del Method 04/19/22 08:00 O2 Flow Rate 6 04/18/22 20:00 04/18/22 04/19/22 04/19/22 22:59 06:59 14:59 Intake Total 540 / 2190 50 / 2240 300 / 300 Output Total 2250 / 2250 1400 / 3650 Balance -1710 / -60 -1350 / -1410 300 / 300 Physical Exam Resp: COMMON NORMALS: clear to auscultation bilaterally AUSCULTATION: clear to auscultation bilaterally Cardio: COMMON NORMALS: regular rate, regular rhythm, S1 normal heart sound present, S2 normal heart sound present, No gallops present (Cardio), No murmurs present (Cardio), No rub (Cardio) and Peripheral pulses 2+ throughout RATE: regular rate RHYTHM: regular rhythm HEART SOUNDS: S1 normal heart sound present and S2 normal heart sound present PERIPHERAL PULSES: Peripheral pulses 2+ throughout GI: COMMON NORMALS: Normal to inspection, nondistended, normoactive bowel sounds present, Soft to palpation, non-tender, No hepatosplenomegaly present and no masses AUSCULTATION: Yes normoactive bowel sounds PALPATION: Yes Soft to palpation and Yes No hepatosplenomegaly present RECTAL EXAM: deferred Extremity: COMMON NORMALS: no clubbing, cyanosis or edema and no pedal edema NARRATIVE EXTREMITY EXAM: Left knee joint, warm and tender with erythema Urinary Catheter Management: Riojas: Cath Placed During This Visit: yes Reason for Continuing Indwelling Catheter: Required Immobilization for Trauma or Surgery or Anesthesia Urinary Catheter Date of Insertion: 04/16/22 Urinary Catheter Time of Insertion: 20:52 Data : 04/19/22 05:08 04/19/22 05:08 Micro: Microbiology 04/17/22 11:20 Gram Stain - Final Knee - Right Abscess Culture - Preliminary Staphylococcus aureus A&P Assessment and plan (1) Septic prepatellar bursitis of left knee: Status: Acute (2) Chronic pain: Status: Acute (3) Hyperglycemia: Status: Acute (4) Diabetes mellitus type 1: Status: Chronic Qualifiers: Diabetes mellitus complication status: with hyperglycemia Qualified Code(s): E10.65 - Type 1 diabetes mellitus with hyperglycemia (5) Diabetic gastroparesis: Status: Chronic (6) Anemia of chronic disease: Status: Acute (7) Below-knee amputation of left lower extremity: Status: Acute (8) Insomnia: Status: Acute Qualifiers: Insomnia type: due to medical condition Qualified Code(s): G47.01 - Insomnia due to medical condition (9) GERD (gastroesophageal reflux disease): Status: Acute Qualifiers: Esophagitis presence: without esophagitis Qualified Code(s): K21.9 - Gastro-esophageal reflux disease without esophagitis (10) ALEJANDRO (generalized anxiety disorder): Status: Acute Plan Left knee abscess 4.9 x 2 x 6.4 cm Infrapatellar abscess Patient is endorsing fever, rigors and chills, miild fever at the time of my evaluation no signs of sepsis Patient is stating that she has not suffered with any injury or falls however she has not been using any prosthesis History of MRSA infection in the past which was treated with p.o. antibiotics Start broad-spectrum antibiotics Blood cultures taken in the ER around 2:47 PM Patient is diabetic which will require broad-spectrum initially further antibiotic de-escalation will be made after culture and sensitivity report Will cover with vancomycin and Zosyn for now Keep her n.p.o. after midnight Opiates currently is along bowel regimen No active signs of sepsis Check D-dimer inflammatory markers Place Riojas catheter for surgery tomorrow Hypokalemia: 80 mEq IV potassium, check magnesium level Type 2 diabetes Consistent carb diet for now n.p.o. 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
[2022-04-19 10:56] LABS: Glucose Point of Care 120 mg/dL (70-110)
[2022-04-19] MEDS: vancomycin 1,000 MG in sodium chloride 0.9% 250 ML 250 MG IV (15:14)
[2022-04-19 16:40] LABS: Glucose Point of Care 161 mg/dL (70-110)
[2022-04-19] MEDS: insulin lispro 100 unit/1 mL SUBCUT (17:27)
[2022-04-19 21:42] LABS: Glucose Point of Care 144 mg/dL (70-110)
[2022-04-19] MEDS: insulin glargine 100 units/1 mL 20 UNIT SUBCUT (21:59)
[2022-04-19] MEDS: doxepin 10 mg Capsule PO (22:00)
[2022-04-20] VITALS (13 sets, daily range): BP systolic 106–143; BP diastolic 66–80; PULSE 64–74; RESP 12–18; TEMP 36.4–36.8; O2SAT 97–100
[2022-04-20] MEDS: enoxaparin 30 mg/0.3 mL Syringe SUBCUT (00:33)
[2022-04-20] MEDS: oxyCODONE 5 mg IR Tab/Cap PO ×3 (02:22→20:56)
[2022-04-20 02:39] LABS: Basophils % 0.6 %; Eosinophils # 0.1 10^3/uL (0.0-0.8); Eosinophils % 1.7 %; Hematocrit 29.7 % (37.0-47.0); Hemoglobin 8.9 g/dL (11.5-15.3); Lymphocytes # 1.8 10^3/uL (0.8-4.8); Lymphocytes % 36.2 %; Mean Corpuscular Hemoglobin 25.8 pg (28.0-34.0); Mean Corpuscular Volume 86.1 fl (81-99); Mean Platelet Volume 9.4 fL (7.4-10.4); Monocytes # 0.3 10^3/uL (0.2-0.9); Neutrophils # 2.62 10^3/uL (1.8-7.7); Neutrophils % 54.3 %; Nucleated Red Blood Cells % 0 %; Platelet Count 358 10^3/cmm (130-400); Red Blood Count 3.45 10^6/uL (4.1-5.3); Red Cell Distribution Width 15.3 % (12.1-15.1); White Blood Count 4.8 10^3/uL (4.0-10.0)
[2022-04-20 03:05] LABS: Alanine Aminotransferase 84 U/L (0-33); Albumin Level 2.8 g/dL (3.5-5.2); Alkaline Phosphatase 239 U/L (35-105); Blood Urea Nitrogen 11 mg/dL (6-20); Calcium 8.8 mg/dL (8.5-10.5); Carbon Dioxide 24 mmol/L (22-29); Chloride 101 mmol/L (98-107); Globulin 3.7 g/dL (1.3-4.6); Glucose 92 mg/dL (65-115); Osmolality Calculated 279 mOsm/kg (285-295); Sodium 135 mmol/L (136-145); Total Bilirubin 0.3 mg/dL (0.15-1.2); Total Protein 6.5 g/dL (6.6-8.7)
[2022-04-20 03:11] LABS: Anion Gap 13.8 (5-19)
[2022-04-20 03:13] LABS: Aspartate Amino Transferase 109 U/L (0-32); Potassium 3.8 mmol/L (3.5-5.1)
[2022-04-20] MEDS: vancomycin 1,000 MG in sodium chloride 0.9% 250 ML 250 MG IV ×2 (03:28→15:03)
[2022-04-20] MEDS: HYDROmorphone 1 mg/mL INJ 1 mL 0.2 MG IVP ×3 (04:36→13:43)
[2022-04-20] MEDS: piperacillin-tazobactam 3.375 GM in sodium chloride 0.9% (plus) 50 ML IV ×2 (05:14→12:30)
[2022-04-20] MEDS: acetaminophen 500 mg Tablet 1000 MG PO ×3 (05:14→20:49)
[2022-04-20 06:11] LABS: Glucose Point of Care 151 mg/dL (70-110)
[2022-04-20] MEDS: duloxetine 30 mg Capsule PO ×3 (08:13→20:50)
[2022-04-20] MEDS: insulin lispro 100 unit/1 mL SUBCUT ×3 (08:13→17:17)
[2022-04-20] MEDS: sennosides-docusate Tablet 1 TAB PO (08:14)
[2022-04-20] MEDS: sennosides-docusate Tablet 2 TAB PO ×2 (08:14→17:18)
[2022-04-20] MEDS: multivitamin therapeutic Tablet 1 TAB PO (08:14)
[2022-04-20] MEDS: amlodipine 10 mg Tablet PO (08:15)
[2022-04-20] MEDS: metoprolol succinate ER (24 HR) 25 mg Tablet 50 MG PO (08:15)
[2022-04-20] MEDS: cholecalciferol (vitamin D3) 1,000 unit Tablet 1000 UNIT PO (08:15)
[2022-04-20 11:41] LABS: Glucose Point of Care 144 mg/dL (70-110)
--- NOTE | 2022-04-20 14:46 | P.PN_ITS ---
Subjective Subjective: Patient seen and examined this morning. Overall she is doing better has been afebrile Hemovac has been removed. Medications: Medication Review Details: Generic Name Dose Route Start Last Admin Trade Name Ana Cristina PRN Reason Stop Dose Admin Acetaminophen 1,000 mg 04/17/22 13:07 04/20/22 12:25 Acetaminophen 50 0 Mg Tablet PO 1,000 mg Q8H DAWSON Administration Amlodipine Besylat e 10 mg 04/17/22 09:00 04/20/22 08:15 Amlodipine 10 Mg Tablet PO 10 mg DAILY DAWSON Administration Doxepin HCl 10 mg 04/16/22 21:00 04/19/22 22:00 Doxepin 10 Mg Ca psule PO 10 mg BEDTIME DAWSON Administration Duloxetine HCl 30 mg 04/16/22 21:00 04/20/22 08:13 Duloxetine 30 Mg Capsule PO 30 mg TID DAWSON Administration Enoxaparin Sodium 30 mg 04/18/22 00:30 04/20/22 00:33 Enoxaparin 30 Mg /0.3 Ml Syringe SUBCUT 30 mg Q24H DAWSON Administration Hydromorphone HCl 0.2 mg 04/16/22 20:35 04/20/22 13:43 Hydromorphone 1 Mg/Ml Inj 1 Ml IVP 0.2 mg Q4H PRN Administration pain Piperacillin Sod/T azobactam 50 mls @ 12.5 mls /hr 04/16/22 20:35 04/20/22 12:30 Sod 3.375 gm/ So dium Chloride IV 12.5 mls/hr Q8H DAWSON Administration Protocol Vancomycin HCl 1,0 00 mg/ 250 mls @ 250 mls /hr 04/17/22 04:00 04/20/22 04:28 Sodium Chloride IV Infused Q12H DAWSON Infusion Insulin Glargine 20 unit 04/18/22 21:00 04/19/22 21:59 Insulin Glargine 100 Units/1 Ml SUBCUT 20 unit BEDTIME DAWSON Administration Insulin Human Lisp ro 0 unit 04/17/22 08:00 04/20/22 12:26 Insulin Lispro 1 00 Unit/1 Ml SUBCUT 2 unit TIDWM DAWSON Administration Protocol Metoprolol Succina te 50 mg 04/17/22 09:00 04/20/22 08:15 Metoprolol Succi mili Er (24 Hr) 25 Mg Tablet PO 50 mg DAILY DAWSON Administration Multivitamins Ther apeutic 1 tab 04/18/22 09:00 04/20/22 08:14 Multivitamin The rapeutic Tablet PO 1 tab DAILY DAWSON Administration Ondansetron HCl 4 mg 04/16/22 20:35 04/18/22 09:47 Ondansetron 2 Mg /Ml Sdv 2 Ml IVP 4 mg Q6H PRN Administration NAUSEA AND VOMITI NG Oxycodone HCl 5 - 10 mg 04/17/22 13:07 04/20/22 10:24 Oxycodone 5 Mg I r Tab/Cap PO 10 mg Q4H PRN Administration MODERATE TO SEVER E PAIN Senna/Docusate Sod ium 1 tab 04/17/22 09:00 04/20/22 08:14 Sennosides-Docus ate Tablet PO 1 tab DAILY DAWSON Administration Senna/Docusate Sod ium 2 tab 04/17/22 18:00 04/20/22 08:14 Sennosides-Docus ate Tablet PO 2 tab BID DAWSON Administration Vitamin D 1,000 unit 04/18/22 09:00 04/20/22 08:15 Cholecalciferol (Vitamin D3) 1,000 Unit Tablet PO 1,000 unit DAILY DAWSON Administration Vitals/I&O/Wt Last Vital Signs Temp 98.2 F 04/20/22 11:03 Pulse 65 04/20/22 11:03 Resp 16 04/20/22 13:43 BP 125/74 04/20/22 11:03 Pulse Ox 98 04/20/22 11:03 O2 Del Method 04/20/22 11:03 O2 Flow Rate 6 04/18/22 20:00 04/19/22 04/20/22 04/20/22 22:59 06:59 14:59 Intake Total 900 / 1320 420 / 1740 170 / 170 Output Total 1350 / 1350 Balance 900 / 1320 -930 / 390 170 / 170 Physical Exam Resp: COMMON NORMALS: clear to auscultation bilaterally AUSCULTATION: clear to auscultation bilaterally Cardio: COMMON NORMALS: regular rate, regular rhythm, S1 normal heart sound present, S2 normal heart sound present, No gallops present (Cardio), No murmurs present (Cardio), No rub (Cardio) and Peripheral pulses 2+ throughout RATE: regular rate RHYTHM: regular rhythm HEART SOUNDS: S1 normal heart sound present and S2 normal heart sound present PERIPHERAL PULSES: Peripheral pulses 2+ throughout GI: COMMON NORMALS: Normal to inspection, nondistended, normoactive bowel so unds present, Soft to palpation, non-tender, No hepatosplenomegaly present and no masses AUSCULTATION: Yes normoactive bowel sounds PALPATION: Yes Soft to palpation and Yes No hepatosplenomegaly present RECTAL EXAM: deferred Extremity: COMMON NORMALS: no clubbing, cyanosis or edema and no pedal edema NARRATIVE EXTREMITY EXAM: Left knee joint, warm and tender with erythema Urinary Catheter Management: Riojas: Cath Placed During This Visit: yes Reason for Continuing Indwelling Catheter: Other Urinary Catheter Date of Insertion: 04/16/22 Urinary Catheter Time of Insertion: 20:52 Data : 04/20/22 02:13 04/20/22 02:13 Micro: Microbiology 04/17/22 11:20 Gram Stain - Final Knee - Right Anaerobic Culture - Preliminary Abscess Culture - Final Staphylococcus aureus A&P Assessment and plan (1) Septic prepatellar bursitis of left knee: Status: Acute (2) Chronic pain: Status: Acute (3) Hyperglycemia: Status: Acute (4) Diabetes mellitus type 1: Status: Chronic Qualifiers: Diabetes mellitus complication status: with hyperglycemia Qualified Code(s): E10.65 - Type 1 diabetes mellitus with hyperglycemia (5) Diabetic gastroparesis: Status: Chronic (6) Anemia of chronic disease: Status: Acute (7) Below-knee amputation of left lower extremity: Status: Acute (8) Insomnia: Status: Acute Qualifiers: Insomnia type: due to medical condition Qualified Code(s): G47.01 - Insomnia due to medical condition (9) GERD (gastroesophageal reflux disease): Status: Acute Qualifiers: Esophagitis presence: without esophagitis Qualified Code(s): K21.9 - Gastro-esophageal reflux disease without esophagitis (10) ALEJANDRO (generalized anxiety disorder): Status: Acute Plan LT KNEE Septic prepatellar bursitis: CT lower leg LT w con: Abscess measuring 4.9 x 2.0 x 6.4 cm located in the infrapatellar soft tissues. Blood culture: Negative till date Wound culture:MSSA S/p Left knee irrigation and debridement Initially on broad-spectrum antibiotics with Vanco and Zosyn. Antibiotic coverage has been narrowed to vancomycin. Given her history of longstanding diabetes, and inherent immunocompromise status due to diabetes, she will benefit from IV antibiotic, for at least for 2 weeks. Current plan is to discharge her on ceftriaxone 2 g IV daily for 2 weeks. She will continue to follow orthopedic as outpatient and if needed ID as outpatient. Arrangement for IV antibiotics on discharge is being made. Type 2 diabetes Consistent carb diet for now n.p.o. after midnight Diabetic gastroparesis check A1c level no active emesis Zofran to be alternate with Reglan History of bipolar disorder No active decompensation Continue anxiolytic DVT prophylaxis SCDs Full code Attestations Medical Necessity Statement*: Patient is to be in hospital for continued IV antibiotics, pending outpatient antibiotic arrangement. 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
[2022-04-20 15:35] LABS: Vancomycin Trough 24.2 ug/mL (10-15)
[2022-04-20 16:47] LABS: Glucose Point of Care 202 mg/dL (70-110)
[2022-04-20] MEDS: doxepin 10 mg Capsule PO (20:50)
[2022-04-20] MEDS: insulin glargine 100 units/1 mL 20 UNIT SUBCUT (20:50)
[2022-04-20 21:08] LABS: Glucose Point of Care 176 mg/dL (70-110)
[2022-04-21] VITALS (10 sets, daily range): BP systolic 134–166; BP diastolic 75–94; PULSE 65–88; RESP 12–18; TEMP 36.6–37.1; O2SAT 97–100
[2022-04-21] MEDS: enoxaparin 30 mg/0.3 mL Syringe SUBCUT (00:42)
[2022-04-21] MEDS: vancomycin 1,000 MG in sodium chloride 0.9% 250 ML 250 MG IV (05:03)
[2022-04-21] MEDS: acetaminophen 500 mg Tablet 1000 MG PO ×3 (05:04→20:59)
[2022-04-21 05:13] LABS: Basophils % 0.6 %; Eosinophils # 0.2 10^3/uL (0.0-0.8); Eosinophils % 3.1 %; Hematocrit 30.3 % (37.0-47.0); Hemoglobin 9.3 g/dL (11.5-15.3); Lymphocytes # 1.7 10^3/uL (0.8-4.8); Lymphocytes % 35.2 %; Mean Corpuscular HGB Conc 30.7 g/dL (30.0-36.0); Mean Corpuscular Hemoglobin 25.5 pg (28.0-34.0); Mean Corpuscular Volume 83.2 fl (81-99); Monocytes # 0.3 10^3/uL (0.2-0.9); Monocytes % 6.3 %; Neutrophils # 2.59 10^3/uL (1.8-7.7); Neutrophils % 54.4 %; Nucleated Red Blood Cells % 0 %; Platelet Count 439 10^3/cmm (130-400); Red Blood Count 3.64 10^6/uL (4.1-5.3); Red Cell Distribution Width 15.2 % (12.1-15.1); White Blood Count 4.8 10^3/uL (4.0-10.0)
[2022-04-21 05:34] LABS: Alanine Aminotransferase 74 U/L (0-33); Alkaline Phosphatase 252 U/L (35-105); Blood Urea Nitrogen 13 mg/dL (6-20); Calcium 9.3 mg/dL (8.5-10.5); Carbon Dioxide 27 mmol/L (22-29); Chloride 100 mmol/L (98-107); Globulin 3.8 g/dL (1.3-4.6); Glomerular Filtration Rate 90.9 mL/min (90-130); Glucose 105 mg/dL (65-115); Osmolality Calculated 282 mOsm/kg (285-295); Sodium 136 mmol/L (136-145); Total Bilirubin 0.2 mg/dL (0.15-1.2); Total Protein 6.8 g/dL (6.6-8.7)
[2022-04-21 05:37] LABS: Anion Gap 12.7 (5-19); Aspartate Amino Transferase 41 U/L (0-32); Potassium 3.7 mmol/L (3.5-5.1)
[2022-04-21 06:25] LABS: Glucose Point of Care 170 mg/dL (70-110)
[2022-04-21] MEDS: amlodipine 10 mg Tablet PO (08:40)
[2022-04-21] MEDS: duloxetine 30 mg Capsule PO ×3 (08:40→21:00)
[2022-04-21] MEDS: metoprolol succinate ER (24 HR) 25 mg Tablet 50 MG PO (08:40)
[2022-04-21] MEDS: sennosides-docusate Tablet 2 TAB PO ×2 (08:40→17:57)
[2022-04-21] MEDS: multivitamin therapeutic Tablet 1 TAB PO (08:40)
[2022-04-21] MEDS: cholecalciferol (vitamin D3) 1,000 unit Tablet 1000 UNIT PO (08:40)
[2022-04-21] MEDS: insulin lispro 100 unit/1 mL SUBCUT ×3 (08:40→17:44)
[2022-04-21] MEDS: oxyCODONE 5 mg IR Tab/Cap PO ×2 (08:40→23:27)
[2022-04-21 11:09] LABS: Glucose Point of Care 149 mg/dL (70-110)
--- NOTE | 2022-04-21 16:03 | PM.PN ---
Subjective Subjective: Patient seen and examined this morning. no acute events, overall she is doing fine. Medications: Medication Review Details: Generic Name Dose Route Start Last Admin Trade Name Ciriloq PRN Reason Stop Dose Admin Acetaminophen 1,000 mg 04/17/22 13:07 04/20/22 12:25 Acetaminophen 50 0 Mg Tablet PO 1,000 mg Q8H DAWSON Administration Amlodipine Besylat e 10 mg 04/17/22 09:00 04/20/22 08:15 Amlodipine 10 Mg Tablet PO 10 mg DAILY DAWSON Administration Doxepin HCl 10 mg 04/16/22 21:00 04/19/22 22:00 Doxepin 10 Mg Ca psule PO 10 mg BEDTIME DAWSON Administration Duloxetine HCl 30 mg 04/16/22 21:00 04/20/22 08:13 Duloxetine 30 Mg Capsule PO 30 mg TID DAWSON Administration Enoxaparin Sodium 30 mg 04/18/22 00:30 04/20/22 00:33 Enoxaparin 30 Mg /0.3 Ml Syringe SUBCUT 30 mg Q24H DAWSON Administration Hydromorphone HCl 0.2 mg 04/16/22 20:35 04/20/22 13:43 Hydromorphone 1 Mg/Ml Inj 1 Ml IVP 0.2 mg Q4H PRN Administration pain Piperacillin Sod/T azobactam 50 mls @ 12.5 mls /hr 04/16/22 20:35 04/20/22 12:30 Sod 3.375 gm/ So dium Chloride IV 12.5 mls/hr Q8H DAWSON Administration Protocol Vancomycin HCl 1,0 00 mg/ 250 mls @ 250 mls /hr 04/17/22 04:00 04/20/22 04:28 Sodium Chloride IV Infused Q12H DAWSON Infusion Insulin Glargine 20 unit 04/18/22 21:00 04/19/22 21:59 Insulin Glargine 100 Units/1 Ml SUBCUT 20 unit BEDTIME DAWSON Administration Insulin Human Lisp ro 0 unit 04/17/22 08:00 04/20/22 12:26 Insulin Lispro 1 00 Unit/1 Ml SUBCUT 2 unit TIDWM DAWSON Administration Protocol Metoprolol Succina te 50 mg 04/17/22 09:00 04/20/22 08:15 Metoprolol Succi mili Er (24 Hr) 25 Mg Tablet PO 50 mg DAILY DAWSON Administration Multivitamins Ther apeutic 1 tab 04/18/22 09:00 04/20/22 08:14 Multivitamin The rapeutic Tablet PO 1 tab DAILY DAWSON Administration Ondansetron HCl 4 mg 04/16/22 20:35 04/18/22 09:47 Ondansetron 2 Mg /Ml Sdv 2 Ml IVP 4 mg Q6H PRN Administration NAUSEA AND VOMITI NG Oxycodone HCl 5 - 10 mg 04/17/22 13:07 04/20/22 10:24 Oxycodone 5 Mg I r Tab/Cap PO 10 mg Q4H PRN Administration MODERATE TO SEVER E PAIN Senna/Docusate Sod ium 1 tab 04/17/22 09:00 04/20/22 08:14 Sennosides-Docus ate Tablet PO 1 tab DAILY DAWSON Administration Senna/Docusate Sod ium 2 tab 04/17/22 18:00 04/20/22 08:14 Sennosides-Docus ate Tablet PO 2 tab BID DAWSON Administration Vitamin D 1,000 unit 04/18/22 09:00 04/20/22 08:15 Cholecalciferol (Vitamin D3) 1,000 Unit Tablet PO 1,000 unit DAILY DAWSON Administration Vitals/I&O/Wt Last Vital Signs Temp 98.7 F 04/21/22 15:27 Pulse 69 04/21/22 15:27 Resp 14 04/21/22 15:27 BP 147/78 04/21/22 15:27 Pulse Ox 97 04/21/22 15:27 O2 Del Method 04/21/22 15:27 O2 Flow Rate 6 04/20/22 20:00 04/21/22 04/21/22 04/21/22 06:59 14:59 22:59 Intake Total 250 / 1541.667 480 / 480 Output Total 1800 / 2950 Balance -1550 / -1408.333 480 / 480 Physical Exam Resp: COMMON NORMALS: clear to auscultation bilaterally AUSCULTATION: clear to auscultation bilaterally Cardio: COMMON NORMALS: regular rate, regular rhythm, S1 normal heart sound present, S2 normal heart sound present, No gallops present (Cardio), No murmurs present (Cardio), No rub (Cardio) and Peripheral pulses 2+ throughout RATE: regular rate RHYTHM: regular rhythm HEART SOUNDS: S1 normal heart sound present and S2 normal heart sound present PERIPHERAL PULSES: Peripheral pulses 2+ throughout GI: COMMON NORMALS: Normal to inspection, nondistended, normoactive bowel sounds present, Soft to palpation, non-tender, No hepatosplenomegaly present and no masses AUSCULTATION: Yes normoactive bowel sounds PALPATION: Yes Soft to palpation and Yes No hepatosplenomegaly present RECTAL EXAM: deferred Extremity: COMMON NORMALS: no clubbing, cyanosis or edema and no pedal edema NARRATIVE EXTREMITY EXAM: Left knee joint, warm and tender with erythema Urinary Catheter Management: Riojas: Cath Placed During This Visit: yes Reason for Continuing Indwelling Catheter: Other Urinary Catheter Date of Insertion: 04/16/22 Urinary Catheter Time of Insertion: 20:52 Data : 04/21/22 04:27 04/21/22 04:27 Micro: Microbiology 04/17/22 11:20 Gram Stain - Final Knee - Right Anaerobic Culture - Preliminary Abscess Culture - Final Staphylococcus aureus 04/16/22 14:54 Blood Culture - Final Blood NO GROWTH AFTER 5 DAYS 04/16/22 14:47 Blood Culture - Final Blood NO GROWTH AFTER 5 DAYS A&P Assessment and plan (1) Septic prepatellar bursitis of left knee: Status: Acute (2) Chronic pain: Status: Acute (3) Hyperglycemia: Status: Acute (4) Diabetes mellitus type 1: Status: Chronic Qualifiers: Diabetes mellitus complication status: with hyperglycemia Qualified Code(s): E10.65 - Type 1 diabetes mellitus with hyperglycemia (5) Diabetic gastroparesis: Status: Chronic (6) Anemia of chronic disease: Status: Acute (7) Below-knee amputation of left lower extremity: Status: Acute (8) Insomnia: Status: Acute Qualifiers: Insomnia type: due to medical condition Qualified Code(s): G47.01 - Insomnia due to medical condition (9) GERD (gastroesophageal reflux disease): Status: Acute Qualifiers: Esophagitis presence: without esophagitis Qualified Code(s): K21.9 - Gastro-esophageal reflux disease without esophagitis (10) ALEJANDRO (generalized anxiety disorder): Status: Acute Plan LT KNEE Septic prepatellar bursitis: CT lower leg LT w con: Abscess measuring 4.9 x 2.0 x 6.4 cm located in the infrapatellar soft tissues. Blood culture: Negative till date Wound culture:MSSA S/p Left knee irrigation and debridement Initially on broad-spectrum antibiotics with Vanco and Zosyn. Antibiotic coverage has been narrowed to vancomycin. Given her history of longstanding diabetes, and inherent immunocompromise status due to diabetes, she will benefit from IV antibiotic, for at least for 2 weeks. Current plan is to discharge her on ceftriaxone 2 g IV daily for 2 weeks. She will continue to follow orthopedic as outpatient and if needed ID as outpatient. Arrangement for IV antibiotics on discharge is being made.Given the fact that that there is no inhouse person to place PICC during the holiday weekend the current plan is to discharge the patient home tomorrow, she will come to outpatient [facility] Infusion center at [facility] on Saturday and get a midline placed and continue with I.V Infusion from Saturday for 2 weeks.Arrangement for the same has been made.Patient has agreed for it. Type 2 diabetes Consistent carb diet for now n.p.o. after midnight Diabetic gastroparesis check A1c level no active emesis Zofran to be alternate with Reglan History of bipolar disorder No active decompensation Continue anxiolytic DVT prophylaxis SCDs Full code Attestations Medical Necessity Statement*: Patient needs to be in hospital for continued I.V Abxs. 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
[2022-04-21 16:58] LABS: Glucose Point of Care 216 mg/dL (70-110)
[2022-04-21] MEDS: doxepin 10 mg Capsule PO (21:00)
[2022-04-21] MEDS: insulin glargine 100 units/1 mL 20 UNIT SUBCUT (21:01)
[2022-04-21 21:23] LABS: Glucose Point of Care 151 mg/dL (70-110)
[2022-04-22] VITALS: BP 136/77; PULSE 73; RESP 15; TEMP 36.9; O2SAT 97
[2022-04-22 04:00] VITALS: BP 136/75; PULSE 66; RESP 14; TEMP 36.7; O2SAT 98
[2022-04-22 06:19] LABS: Glucose Point of Care 116 mg/dL (70-110)
[2022-04-22 08:00] VITALS: BP 151/84; PULSE 123; RESP 20; TEMP 36.8; O2SAT 95
[2022-04-22] MEDS: sennosides-docusate Tablet 1 TAB PO (09:52)
[2022-04-22] MEDS: sennosides-docusate Tablet 2 TAB PO (09:52)
[2022-04-22] MEDS: duloxetine 30 mg Capsule PO (09:53)
[2022-04-22] MEDS: cholecalciferol (vitamin D3) 1,000 unit Tablet 1000 UNIT PO (09:53)
[2022-04-22] MEDS: acetaminophen 500 mg Tablet 1000 MG PO (09:53)
[2022-04-22] MEDS: multivitamin therapeutic Tablet 1 TAB PO (09:54)
[2022-04-22] MEDS: amlodipine 10 mg Tablet PO (09:54)
[2022-04-22 09:56] VITALS: RESP 16
[2022-04-22] MEDS: metoprolol succinate ER (24 HR) 25 mg Tablet 50 MG PO (09:56)
[2022-04-22] MEDS: oxyCODONE 5 mg IR Tab/Cap PO (09:56)
--- NOTE | 2022-04-22 10:35 | PC.NURSE ---
Notified dr Perry patient has no IV access therefore has not received 0400 vancomycin. stated that she will be discharged today and receive a picc outpatient.
[2022-04-22 11:29] VITALS: BP 162/81; PULSE 112; RESP 20; TEMP 36.7; O2SAT 98
--- NOTE | 2022-04-22 11:50 | PC.NURSE ---
Addendum entered by Светлана Escobar RN 04/22/22 14:00: Patient out of shower, dressing changed before discharge, see wound assessment. Original Note: Patient got in shower without letting nurse know. Left knee dressing is is not wrapped and is wet. Patient is refusing to get out of shower.
--- NOTE | 2022-04-22 11:58 | PM.DCS ---
Discharge Providers Date of Admission: 04/16/22 19:07 Date of Discharge: April 22, 2022 Attending Provider at Admission: Gracia Gonzalez MD Attending Provider at Discharge: Prosper Perry MD Diagnoses at Discharge Discharge Diagnosis (1) Septic prepatellar bursitis of left knee: Status: Acute (2) Chronic pain: Status: Acute (3) Hyperglycemia: Status: Acute (4) Diabetes mellitus type 1: Status: Chronic Qualifiers: Diabetes mellitus complication status: with hyperglycemia Qualified Code(s): E10.65 - Type 1 diabetes mellitus with hyperglycemia Permanent problem details: diagnosed age 15, history of peripheral neuropathy, gastroparesis and nephropathy (5) Diabetic gastroparesis: Status: Chronic (6) Anemia of chronic disease: Status: Acute (7) Below-knee amputation of left lower extremity: Status: Acute (8) Insomnia: Status: Acute Qualifiers: Insomnia type: due to medical condition Qualified Code(s): G47.01 - Insomnia due to medical condition (9) GERD (gastroesophageal reflux disease): Status: Acute Qualifiers: Esophagitis presence: without esophagitis Qualified Code(s): K21.9 - Gastro-esophageal reflux disease without esophagitis (10) ALEJANDRO (generalized anxiety disorder): Status: Acute Reason for Visit Reason for Visit: Extreme pain on amp. leg Hospital Course Hospital Course 42 year old female who has significant psychiatric history related admissions to [facility] secondary to suicidal ideation, depression, insulin-dependent diabetes, recurrent injuries to her left leg stump, required anti-MRSA coverage in the past, right toe amputation metatarsophalangeal joint 6/3 secondary to osteomyelitis went to urgent care clinic today,? was evaluated by Dr. Lewis for left knee pain referred her to the ER for further evaluation with concern for abscess She was admitted for the management of LT KNEE Septic prepatellar bursitis: CT lower leg LT w con:?Abscess measuring 4.9 x 2.0 x 6.4 cm located in the infrapatellar soft tissues. Blood culture: Negative , Wound culture:MSSA. S/p?Left knee irrigation and debridement Initially on broad-spectrum antibiotics with Vanco and Zosyn. Antibiotic coverage was latter narrowed to vancomycin.?Given her history of longstanding diabetes, and inherent immunocompromise status due to diabetes, she will benefit from IV antibiotic, for at least for 3 weeks.Current plan is to discharge her on ceftriaxone 2 g IV daily for 2 weeks. She will continue to follow orthopedic as outpatient and if needed ID as outpatient. Arrangement for IV antibiotics on discharge is being made.Given the fact that that there is no inhouse person to place PICC during the holiday weekend the current plan is to discharge the patient home, she will come to outpatient [facility] Infusion center at [facility] on Saturday and get a midline placed and continue with I.V Infusion from Saturday for 2 weeks.Arrangement for the same has been made.Patient has agreed for it. In the interim she has been discharged on p.o. Bactrim for 2 days. Consideration to oral antibiotics were given, but given her extensive past medical history as mentioned above in the HPI, IV antibiotics was opted. Ceftriaxone has equivalent MSSA coverage, given the fact it is once daily dosing, it was opted. Patient will need repeat CBC and CMP in 2 weeks. This can be done as outpatient when she follows orthopedics in 2 weeks. Physical Exam Resp: COMMON NORMALS: clear to auscultation bilaterally AUSCULTATION: clear to auscultation bilaterally Cardio: COMMON NORMALS: regular rate, regular rhythm, S1 normal heart sound present, S2 normal heart sound present, No gallops present (Cardio), No murmurs present (Cardio), No rub (Cardio) and Peripheral pulses 2+ throughout RATE: regular rate RHYTHM: regular rhythm HEART SOUNDS: S1 normal heart sound present and S2 normal heart sound present PERIPHERAL PULSES: Peripheral pulses 2+ throughout GI: COMMON NORMALS: Normal to inspection, nondistended, normoactive bowel sounds present, Soft to palpation, non-tender, No hepatosplenomegaly present and no masses AUSCULTATION: Yes normoactive bowel sounds PALPATION: Yes Soft to palpation and Yes No hepatosplenomegaly present RECTAL EXAM: deferred Extremity: NARRATIVE EXTREMITY EXAM: Left knee joint, warm and tender with erythema Urinary Catheter Management: [place]: Cath Placed During This Visit: yes, but has since been removed by the nurse Reason for Continuing Indwelling Catheter: Other Urinary Catheter Date of Insertion: 04/16/22 Urinary Catheter Time of Insertion: 20:52 Date Urinary Catheter Removed: 04/21/22 Time Urinary Catheter Discontinued: 13:40 Discharge Data Studies Completed and Pending Completed Studies During Hospitalization Category Date Time Status CT lower leg LT w con [id number] Stat Cat Scan 04/16/22 14:21 Completed XR knee LT 3V* [id number] Stat Exams 04/16/22 14:21 Completed Pending at discharge Category Date Time Status Abscess Culture and Gram Stain Routine Lab 04/17/22 11:20 Results Anaerobic Culture Routine Lab 04/17/22 11:20 Results Vancomycin Trough Timed Lab 04/22/22 15:00 Ordered Radiology Impressions Knee X-Ray 04/16/22 14:21 IMPRESSION: 1. No fracture or dislocation. No joint effusion. Lower Extremity CT 04/16/22 14:21 IMPRESSION: Abscess measuring 4.9 x 2.0 x 6.4 cm located in the infrapatellar soft tissues. Laboratory Results WBC 4.8 10^3/uL (4.0-10.0) 04/21/22 04:27 RBC 3.64 10^6/uL (4.1-5.3) L 04/21/22 04:27 Hgb 9.3 g/dL (11.5-15.3) L 04/21/22 04:27 Hct 30.3 % (37.0-47.0) L 04/21/22 04:27 MCV 83.2 fl (81-99) 04/21/22 04:27 MCH 25.5 pg (28.0-34.0) L 04/21/22 04:27 MCHC 30.7 g/dL (30.0-36.0) 04/21/22 04:27 RDW 15.2 % (12.1-15.1) H 04/21/22 04:27 Plt Count 439 10^3/cmm (130-400) H 04/21/22 04:27 MPV 9.0 fL (7.4-10.4) 04/21/22 04:27 Neut % (Auto) 54.4 % 04/21/22 04:27 Lymph % (Auto) 35.2 % 04/21/22 04:27 [place] % (Auto) 6.3 % 04/21/22 04:27 Eos % (Auto) 3.1 % 04/21/22 04:27 Baso % (Auto) 0.6 % 04/21/22 04:27 Neut # (Auto) 2.59 10^3/uL (1.8-7.7) 04/21/22 04:27 Lymph # (Auto) 1.7 10^3/uL (0.8-4.8) 04/21/22 04:27 [place] # (Auto) 0.3 10^3/uL (0.2-0.9) 04/21/22 04:27 Eos # (Auto) 0.2 10^3/uL (0.0-0.8) 04/21/22 04:27 Baso # (Auto) 0.0 10^3/uL (0.0-0.1) 04/21/22 04:27 Nucleated RBC % (auto) 0 % 04/21/22 04:27 Nucleated RBCs # 0.0 /100WBC 04/21/22 04:27 ESR 22 mm/hr (0-15) H 04/16/22 14:47 PT 14.00 SECONDS (12.1-14.9) 04/16/22 14:47 INR 1.05 (0.8-1.2) 04/16/22 14:47 APTT 31.8 SECONDS (23.9-36.7) 04/16/22 14:47 Sodium 136 mmol/L (136-145) 04/21/22 04:27 Potassium 3.7 mmol/L (3.5-5.1) 04/21/22 04:27 Chloride 100 mmol/L (98-107) 04/21/22 04:27 Carbon Dioxide 27 mmol/L (22-29) 04/21/22 04:27 Anion Gap 12.7 (5-19) 04/21/22 04:27 BUN 13 mg/dL (6-20) 04/21/22 04:27 Creatinine 0.7 mg/dL (0.5-0.9) 04/21/22 04:27 GFR Calculation 90.9 mL/min (90-130) 04/21/22 04:27 Glucose 105 mg/dL (65-115) 04/21/22 04:27 POC Glucose 116 mg/dL (70-110) H 04/22/22 06:01 Calculated Osmolality 282 mOsm/kg (285-295) L 04/21/22 04:27 Lactate 1.8 mmol/L (0.5-2.2) 04/16/22 14:47 Calcium 9.3 mg/dL (8.5-10.5) 04/21/22 04:27 Magnesium 1.6 mg/dL (1.7-2.3) L 04/16/22 14:47 Total Bilirubin 0.2 mg/dL (0.15-1.2) 04/21/22 04:27 AST 41 U/L (0-32) H 04/21/22 04:27 ALT 74 U/L (0-33) H 04/21/22 04:27 Alkaline Phosphatase 252 U/L (35-105) H 04/21/22 04:27 C-Reactive Protein 65.9 mg/L (0.0-4.9) H 04/19/22 05:08 Total Protein 6.8 g/dL (6.6-8.7) 04/21/22 04:27 Albumin 3.0 g/dL (3.5-5.2) L 04/21/22 04:27 Globulin 3.8 g/dL (1.3-4.6) 04/21/22 04:27 Procalcitonin 0.23 ng/mL (0-0.5) 04/16/22 14:47 Urine Color Yellow (Yellow) 04/16/22 20:16 Urine Appearance Clear (CLEAR) 04/16/22 20:16 Urine pH 7 (5-7) 04/16/22 20:16 Ur Specific [place] 1.010 (1.005-1.030) 04/16/22 20:16 Urine Protein Neg (Negative) 04/16/22 20:16 Urine Glucose (UA) Norm (Normal) 04/16/22 20:16 Urine Ketones Negative (Negative) 04/16/22 20:16 Urine Blood Neg (Negative) 04/16/22 20:16 Urine Nitrate Negative (Negative) 04/16/22 20:16 Urine Bilirubin Neg (Negative) 04/16/22 20:16 Urine Urobilinogen Norm mg/dL (Negative) 04/16/22 20:16 Ur Leukocyte Esterase Negative (Negative) 04/16/22 20:16 Urine RBC 0-4 /hpf (0-2) H 04/16/22 20:16 Urine WBC 0-4 /hpf (0-5) H 04/16/22 20:16 Ur Squamous Epith Cells 0-4 /hpf (0-5) H 04/16/22 20:16 Amorphous Sediment Not Reportable 04/16/22 20:16 Urine Bacteria None /hpf (NONE) 04/16/22 20:16 Vancomycin Trough 24.2 ug/mL (10-15) H 04/20/22 15:11 SARS-CoV-2 Ag (Rapid) Negative (Negative) 04/16/22 16:24 Blood Type A Positive 04/17/22 01:40 Rho(D) Type Positive 04/17/22 01:40 Antibody Screen Negative 04/17/22 01:40 Vitals Last Vital Signs Temp 98.1 F 04/22/22 11:29 Pulse 112 H 04/22/22 11:29 Resp 20 H 04/22/22 11:29 BP 162/81 04/22/22 11:29 Pulse Ox 98 04/22/22 11:29 O2 Del Method 04/22/22 11:29 O2 Flow Rate 6 04/21/22 20:00 Discharge Plan Discharge Patient Disposition: Home Condition: Stable Prescriptions: New enoxaparin 30 mg/0.3 mL Syringe 30 mg SUBCUT Q24H 14 Days Qty: 4.2 0RF oxycodone 5 mg tablet 5 mg PO Q6H PRN (Reason: pain) Qty: 28 0RF Bactrim DS 800-160 mg tablet 1 tab PO BID Qty: 4 0RF Continued Lantus Solostar U-100 Insulin 100 unit/mL (3 mL) insulin pen 40 unit SUBCUT BEDTIME 30 Days Qty: 15 2RF (DME) Comfort EZ Pen [place] 33 gauge x 1/4 needle See Rx Instructions .ROUTE .MEDSUPPLY Qty: 100 2RF Rx Instructions: As directed (DME) Blood Glucose Test Strip See Rx Instructions .Route Qty: 100 11RF Rx Instructions: Use with meter to test 3 times a day. atorvastatin 40 mg tablet 40 mg PO DAILY 30 Days Qty: 30 1RF ropinirole 1 mg tablet 1 mg PO BEDTIME 30 Days Qty: 30 1RF amlodipine 10 mg tablet 10 mg PO DAILY 30 Days Qty: 30 1RF docusate sodium [Colace] 100 mg capsule 100 mg PO BID 30 Days Qty: 60 1RF metoprolol succinate 25 mg tablet extended release 24 hr 50 mg PO DAILY 30 Days Qty: 60 1RF cyclobenzaprine 10 mg Tablet 10 mg PO BID PRN (Reason: Muscle Spasms) 30 Days Qty: 60 1RF insulin aspart U-100 [Novolog Flexpen U-100 Insulin] 100 unit/mL (3 mL) insulin pen 10 unit SUBCUT TID spironolactone 25 mg tablet 25 mg PO BID duloxetine 30 mg capsule,delayed release(DR/EC) 30 mg PO TID Qty: 90 0RF trazodone 50 mg tablet 50 mg PO BEDTIME doxepin 10 mg capsule 10 mg PO BEDTIME promethazine 25 mg tablet 25 mg PO Q6H PRN (Reason: Nausea) Discharge Orders: Discharge Order (Routine); Ordered 04/22/22 Ordered By: Prosper Perry Referrals: [facility] [Other] (Your ride has been set up for SaturdayApr 24 the courier delivery driver will be @ your house to pick you up between 6:05 and 6:35 w/ return trip scheduled for 9:00. Trip ID# [id number]. ) Yaya Salas, [Physician] - 2 weeks (Please call Dr. Salas's Office at [phone] on Saturday to schedule a follow up appointment for 2 weeks. Thank you.) Discharge Diet: Diabetic Patient Instructions: Sulfamethoxazole/Trimethoprim (By mouth), Oxycodone/Acetaminophen (By mouth) (Percocet, Roxicet), Enoxaparin (By injection) (Lovenox), Opioid Safety Activity Restrictions/Additional Instructions: Orthopedic discharge instructions: Patient should keep incision clean dry and intact until follow-up, may change dressing if saturated or becomes wet. Take pain medication as prescribed Take antibiotic as prescribed by primary Nonweightbearing left below the knee amputation stump Follow-up in the orthopedic office in 2 weeks for incision check and removal of sutures Range of motion left knee as tolerated Discharge Attestations Time Spent in Discharge Care*: less than 30 min Status at Discharge: Cognitive status at discharge: cognitively intact, Behavioral status at discharge: cooperative, Quality Metrics Clinical Quality Measures [ No reported AMI, CVA or VTE this stay] Coding Level of Care Code Acute Chg DC note Exam Expanded Problem Focused Diagnoses Septic prepatellar bursitis of left knee M71.162 Chronic pain G89.29 Hyperglycemia R73.9 Diabetes mellitus type 1 E10.65 Diabetes mellitus complication status: with hyperglycemia Diabetic gastroparesis E11.43; K31.84 Anemia of chronic disease D63.8 Below-knee amputation of left lower extremity S88.112A Insomnia G47.01 Insomnia type: due to medical condition GERD (gastroesophageal reflux disease) K21.9 Esophagitis presence: without esophagitis ALEJANDRO (generalized anxiety disorder) F41.1
[2022-04-22 12:07] LABS: Glucose Point of Care 264 mg/dL (70-110)
[2022-04-22] MEDS: insulin lispro 100 unit/1 mL SUBCUT (12:34)
--- NOTE | 2022-04-22 13:59 | PC.NURSE ---
Discussed discharge, follow up appointments and new medications with patient. Verbalized understanding.
[2022-04-22 14:08] VITALS: BP 162/81; PULSE 112; RESP 20; TEMP 36.7; O2SAT 98
== END 2022-04-22 13:30 | disposition home or self-care (01) | DRG 502 ==
LOC: ER 19:38 → MEDSURG 19:52
PROVIDERS: Student in an Organized Health Care Education/Training Program; Admitting Provider Internal Medicine; Emergency Provider Emergency Medicine; Visit Provider Internal Medicine
PROC: 0MBP0ZZ Excision of Left Knee Bursa and Ligament, Open Approach (ICD-10-PCS; principal; 2022-04-17 10:50)
DX: M71.162 Other infective bursitis, left knee (principal); M71.061 Abscess of bursa, right knee; B95.61 Methicillin susceptible Staphylococcus aureus infection as the cause of diseases classified elsewhere; G89.29 Other chronic pain; E11.22 Type 2 diabetes mellitus with diabetic chronic kidney disease; I12.9 Hypertensive chronic kidney disease with stage 1 through stage 4 chronic kidney disease, or unspecified chronic kidney disease; N18.2 Chronic kidney disease, stage 2 (mild); D63.1 Anemia in chronic kidney disease; E11.43 Type 2 diabetes mellitus with diabetic autonomic (poly)neuropathy; K31.84 Gastroparesis; E87.6 Hypokalemia; E11.42 Type 2 diabetes mellitus with diabetic polyneuropathy; E11.21 Type 2 diabetes mellitus with diabetic nephropathy; E11.39 Type 2 diabetes mellitus with other diabetic ophthalmic complication; G47.01 Insomnia due to medical condition; K21.9 Gastro-esophageal reflux disease without esophagitis; F41.1 Generalized anxiety disorder; F43.10 Post-traumatic stress disorder, unspecified; F31.9 Bipolar disorder, unspecified; I25.10 Atherosclerotic heart disease of native coronary artery without angina pectoris; Z89.512 Acquired absence of left leg below knee; Z79.4 Long term (current) use of insulin; Z89.421 Acquired absence of other right toe(s); Z95.5 Presence of coronary angioplasty implant and graft; Z86.14 Personal history of Methicillin resistant Staphylococcus aureus infection; Z99.3 Dependence on wheelchair
CPT/HCPCS: 36415; 36416; 51702; 73562; 73701; 80048; 80053; 80202; 81001; 82962; 83605; 83735; 84145; 85025; 85610; 85651; 85730; 86140; 86850; 86900; 87040; 87070; 87075; 87077; 87186; 87205; 87426; 94760; 96365; 96366; 96367; 96372; 96375; 97116; 97161; 97530; 99285; J0692; J1100; J1170; J1200; J1650; J1815; J1885; J2405; J2543; J2704; J2765; J3010; J3370; J3480; J3490; J7030; J7050; Q9967

== ENCOUNTER 2022-04-30 18:11 | Emergency (ER) | payer MEDICAID, SELFPAY ==
[2022-04-30 18:15] VITALS: PULSE 105; RESP 16; TEMP 37.2; O2SAT 97; BMI 23.8
[2022-04-30 19:18] LABS: Basophils # 0.1 10^3/uL (0.0-0.1); Basophils % 0.9 %; Eosinophils # 0.1 10^3/uL (0.0-0.8); Eosinophils % 1.6 %; Hematocrit 26.9 % (37.0-47.0); Hemoglobin 8.5 g/dL (11.5-15.3); Lymphocytes # 1.2 10^3/uL (0.8-4.8); Lymphocytes % 21.1 %; Mean Corpuscular HGB Conc 31.6 g/dL (30.0-36.0); Mean Corpuscular Hemoglobin 25.7 pg (28.0-34.0); Mean Corpuscular Volume 81.3 fl (81-99); Mean Platelet Volume 8.4 fL (7.4-10.4); Monocytes # 0.4 10^3/uL (0.2-0.9); Monocytes % 7.5 %; Neutrophils # 3.94 10^3/uL (1.8-7.7); Neutrophils % 68.7 %; Nucleated Red Blood Cells % 0 %; Platelet Count 567 10^3/cmm (130-400); Red Blood Count 3.31 10^6/uL (4.1-5.3); Red Cell Distribution Width 16.3 % (12.1-15.1); White Blood Count 5.7 10^3/uL (4.0-10.0)
[2022-04-30 19:34] LABS: Alanine Aminotransferase 22 U/L (0-33); Albumin Level 4.1 g/dL (3.5-5.2); Alkaline Phosphatase 145 U/L (35-105); Anion Gap 16.6 (5-19); Aspartate Amino Transferase 17 U/L (0-32); Blood Urea Nitrogen 11 mg/dL (6-20); Calcium 9.4 mg/dL (8.5-10.5); Carbon Dioxide 28 mmol/L (22-29); Chloride 99 mmol/L (98-107); Globulin 3.2 g/dL (1.3-4.6); Glomerular Filtration Rate 48.8 mL/min (90-130); Glucose 152 mg/dL (65-115); Lipase 49 U/L (13-60); Osmolality Calculated 292 mOsm/kg (285-295); Potassium 3.6 mmol/L (3.5-5.1); Sodium 140 mmol/L (136-145); Total Bilirubin 0.3 mg/dL (0.15-1.2); Total Protein 7.3 g/dL (6.6-8.7)
[2022-04-30 19:35] LABS: Creatinine Clr Calc Pharmacy 65.1017
--- NOTE | 2022-04-30 20:36 | W.ED.ABDPA2 ---
HPI - Abdominal Pain General: Chief Complaint: Abdominal Pain Stated Complaint: Right Side Pain Time Seen by Provider: 04/30/22 20:36 [facility]: Medical History Acute hyponatremia Acute renal failure Back pain C. 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 Nausea & vomiting Non-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 Psychiatric care PTSD (post-traumatic stress disorder) Self-harming behavior Self-harming behavior Septic prepatellar bursitis of left knee Suicidal ideation Suicidal ideation Toe infection UTI (urinary tract infection) Surgical History Below-knee amputation of left lower extremity H/O esophagogastroduodenoscopy (12/31/20) Bile reflux gastritis, grade B esophagitis H/O exploratory laparotomy x 3 History of amputation of right forefoot Hx of cholecystectomy Previous section x 3 S/P coronary artery stent placement x 1 S/P percutaneous endoscopic gastrostomy (PEG) tube placement Family History Unknown Diabetes extensive, type II Other CHF (congestive heart failure) Social History Smoking and tobacco status: never smoked Quit status (tobacco): has quit using tobacco Former quit date comment: 15 yrs ago Alcohol intake: former Former alcohol use details: 15 yrs ago Household members: spouse Marital status: Sexually active: Yes (1, ) Female Reproductive History: Spontaneous abortions: No Course Vital Signs: Vital signs: Vital Signs Temperature 98.9 F 04/30/22 18:15 Pulse Rate 105 H 04/30/22 18:15 Respiratory Rate 16 04/30/22 18:15 Pulse Oximetry 97 04/30/22 18:15 Oxygen Delivery Me thod 04/30/22 18:15 MDM - Abdominal Pain Lab Data : 04/30/22 19:00 04/30/22 19:00 Labs/Radiology: Laboratory Results WBC 5.7 10^3/uL (4.0-10.0) 04/30/22 19:00 RBC 3.31 10^6/uL (4.1-5.3) L 04/30/22 19:00 Hgb 8.5 g/dL (11.5-15.3) L 04/30/22 19:00 Hct 26.9 % (37.0-47.0) L 04/30/22 19:00 MCV 81.3 fl (81-99) 04/30/22 19:00 MCH 25.7 pg (28.0-34.0) L 04/30/22 19:00 MCHC 31.6 g/dL (30.0-36.0) 04/30/22 19:00 RDW 16.3 % (12.1-15.1) H 04/30/22 19:00 Plt Count 567 10^3/cmm (130-400) H 04/30/22 19:00 MPV 8.4 fL (7.4-10.4) 04/30/22 19:00 Neut % (Auto) 68.7 % 04/30/22 19:00 Lymph % (Auto) 21.1 % 04/30/22 19:00 [place] % (Auto) 7.5 % 04/30/22 19:00 Eos % (Auto) 1.6 % 04/30/22 19:00 Baso % (Auto) 0.9 % 04/30/22 19:00 Neut # (Auto) 3.94 10^3/uL (1.8-7.7) 04/30/22 19:00 Lymph # (Auto) 1.2 10^3/uL (0.8-4.8) 04/30/22 19:00 [place] # (Auto) 0.4 10^3/uL (0.2-0.9) 04/30/22 19:00 Eos # (Auto) 0.1 10^3/uL (0.0-0.8) 04/30/22 19:00 Baso # (Auto) 0.1 10^3/uL (0.0-0.1) 04/30/22 19:00 Nucleated RBC % (auto) 0 % 04/30/22 19:00 Nucleated RBCs # 0.0 /100WBC 04/30/22 19:00 Sodium 140 mmol/L (136-145) 04/30/22 19:00 Potassium 3.6 mmol/L (3.5-5.1) 04/30/22 19:00 Chloride 99 mmol/L (98-107) 04/30/22 19:00 Carbon Dioxide 28 mmol/L (22-29) 04/30/22 19:00 Anion Gap 16.6 (5-19) 04/30/22 19:00 BUN 11 mg/dL (6-20) 04/30/22 19:00 Creatinine 1.2 mg/dL (0.5-0.9) H 04/30/22 19:00 GFR Calculation 48.8 mL/min (90-130) L 04/30/22 19:00 Glucose 152 mg/dL (65-115) H 04/30/22 19:00 Calculated Osmolality 292 mOsm/kg (285-295) 04/30/22 19:00 Calcium 9.4 mg/dL (8.5-10.5) 04/30/22 19:00 Total Bilirubin 0.3 mg/dL (0.15-1.2) 04/30/22 19:00 AST 17 U/L (0-32) 04/30/22 19:00 ALT 22 U/L (0-33) 04/30/22 19:00 Alkaline Phosphatase 145 U/L (35-105) H 04/30/22 19:00 Total Protein 7.3 g/dL (6.6-8.7) 04/30/22 19:00 Albumin 4.1 g/dL (3.5-5.2) 04/30/22 19:00 Globulin 3.2 g/dL (1.3-4.6) 04/30/22 19:00 Lipase 49 U/L (13-60) 04/30/22 19:00 Discharge Plan Discharge Condition: Stable Prescriptions: No Action Lantus Solostar U-100 Insulin 100 unit/mL (3 mL) insulin pen 40 unit SUBCUT BEDTIME 30 Days Qty: 15 2RF (DME) Comfort EZ Pen [place] 33 gauge x 1/4 needle See Rx Instructions .ROUTE .MEDSUPPLY Qty: 100 2RF Rx Instructions: As directed (DME) Blood Glucose Test Strip See Rx Instructions .Route Qty: 100 11RF Rx Instructions: Use with meter to test 3 times a day. atorvastatin 40 mg tablet 40 mg PO DAILY 30 Days Qty: 30 1RF ropinirole 1 mg tablet 1 mg PO BEDTIME 30 Days Qty: 30 1RF amlodipine 10 mg tablet 10 mg PO DAILY 30 Days Qty: 30 1RF docusate sodium [Colace] 100 mg capsule 100 mg PO BID 30 Days Qty: 60 1RF metoprolol succinate 25 mg tablet extended release 24 hr 50 mg PO DAILY 30 Days Qty: 60 1RF cyclobenzaprine 10 mg Tablet 10 mg PO BID PRN (Reason: Muscle Spasms) 30 Days Qty: 60 1RF insulin aspart U-100 [Novolog Flexpen U-100 Insulin] 100 unit/mL (3 mL) insulin pen 10 unit SUBCUT TID spironolactone 25 mg tablet 25 mg PO BID duloxetine 30 mg capsule,delayed release(DR/EC) 30 mg PO TID Qty: 90 0RF trazodone 50 mg tablet 50 mg PO BEDTIME doxepin 10 mg capsule 10 mg PO BEDTIME promethazine 25 mg tablet 25 mg PO Q6H PRN (Reason: Nausea) enoxaparin 30 mg/0.3 mL Syringe 30 mg SUBCUT Q24H 14 Days Qty: 4.2 0RF oxycodone 5 mg tablet 5 mg PO Q6H PRN (Reason: pain) Qty: 28 0RF Bactrim DS 800-160 mg tablet 1 tab PO BID Qty: 4 0RF Coding Level of Care Code ED Manager Project Management for Chg Stephen
--- NOTE | 2022-04-30 20:45 | W.ED.ABDPA2 ---
HPI - Abdominal Pain General: Chief Complaint: Abdominal Pain Stated Complaint: Right Side Pain Time Seen by Provider: 04/30/22 20:36 Source: patient Mode of arrival: ambulatory Limitations: no limitations History of Present Illness: 42-year-old female who is very well-known to the ER she is a history of gastroparesis she states she been having abdominal pain with nausea and vomiting since Saturday. She denies any worsening improving factors states the pain is all over but mainly upper and is cramping in nature denies any fevers patient is in no distress currently Associated Symptoms: Reports nausea and vomiting; Denies chills, dysuria and fever(s) Review of Systems Const: Denies: fever(s), chills, body aches or change in appetite Eyes: Denies: blurry vision or eye discomfort ENMT: Denies: throat pain or dental pain Card: Denies: chest pain Resp: Denies: dyspnea GI: Reports: abdominal pain, nausea and vomiting : Denies: dysuria Musc: Denies: neck pain or back pain Skin/Breast: Denies: rash Neuro: Denies: headache(s) Psych: Denies: depression Keith/Lymph: Denies: easy bruising All/Imm: Denies: urticaria PFSH ED PFSH: Medical History Acute hyponatremia Acute renal failure Anemia of chronic disease Back pain C. difficile diarrhea Chronic abdominal pain Chronic pain Chronic pain syndrome CKD (chronic kidney disease) stage 2, GFR 60-89 ml/min baseline Cr is around 1.0 Coronary artery disease hx of stenting Depression Diabetes mellitus type 1 diagnosed age 15, history of peripheral neuropathy, gastroparesis and nephropathy Diabetic foot ulcer s/p surgical intervention and eventual amputation Diabetic gastroparesis Diabetic ophthalmopathy Foot osteomyelitis, right ALEJANDRO (generalized anxiety disorder) Gastroparesis GERD (gastroesophageal reflux disease) High anion gap metabolic acidosis Hyperglycemia Hyperlipidemia Hypertension Hyponatremia Insomnia 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 Nausea & vomiting Non-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 Psychiatric care PTSD (post-traumatic stress disorder) Self-harming behavior Self-harming behavior Septic prepatellar bursitis of left knee Suicidal ideation Suicidal ideation Toe infection UTI (urinary tract infection) Surgical History Below-knee amputation of left lower extremity H/O esophagogastroduodenoscopy (12/31/20) Bile reflux gastritis, grade B esophagitis H/O exploratory laparotomy x 3 History of amputation of right forefoot Hx of cholecystectomy Previous section x 3 S/P coronary artery stent placement x 1 S/P percutaneous endoscopic gastrostomy (PEG) tube placement Family History Unknown Diabetes extensive, type II Other CHF (congestive heart failure) Social History Smoking and tobacco status: never smoked Quit status (tobacco): has quit using tobacco Former quit date comment: 15 yrs ago Alcohol intake: former Former alcohol use details: 15 yrs ago Household members: spouse Marital status: Sexually active: Yes (1, ) Female Reproductive History: Spontaneous abortions: No Physical Exam Const: COMMON NORMALS: no acute distress, patient oriented x3 and healthy appearing HENMT: COMMON NORMALS: normocephalic and atraumatic HEAD & SCALP: normocephalic and atraumatic Eye: COMMON NORMALS: Equal, round and reactive pupils present and EOMs intact bilaterally PUPIL: Yes Equal, round and reactive pupils present Neck/C-Spine: COMMON NORMALS: full ROM and supple Chest: COMMONS NORMALS: normal inspection of the chest and normal palpation of entire chest wall Resp: COMMON NORMALS: normal respiratory effort, No retractions, No use of accessory muscles and clear to auscultation bilaterally AUSCULTATION: clear to auscultation bilaterally Cardio: COMMON NORMALS: regular rate, regular rhythm and No murmurs present (Cardio) RATE: regular rate RHYTHM: regular rhythm GI: COMMON NORMALS: Normal to inspection, nondistended, normoactive bowel sounds present, Soft to palpation, non-tender and no masses PALPATION: Yes Soft to palpation Extremity: COMMON NORMALS: normal to inspection and full ROM Neuro: COMMON NORMALS: patient oriented x3, moves all extremities and no focal motor deficits Psych: COMMON NORMALS: mental status grossly normal, Normal thought process present and cooperative THOUGHT PROCESS: Normal thought process present Skin: COMMON NORMALS: no rashes or lesions noted and no wounds GENERAL SKIN EXAM: no rashes or lesions noted Course Vital Signs: Vital signs: Vital Signs Temperature 98.9 F 04/30/22 18:15 Pulse Rate 89 04/30/22 21:09 Respiratory Rate 18 04/30/22 21:09 Blood Pressure 171/108 04/30/22 21:09 Pulse Oximetry 98 04/30/22 21:09 Oxygen Delivery Me thod 04/30/22 18:15 MDM - Abdominal Pain Medical Decision Making Patient presents here with abdominal pain is chronic in nature she is well-appearing here exam is benign her blood work here is all normal she is stable for discharge she is to follow-up with PCP and return if worsening she understands agrees to plan. Lab Data : 04/30/22 19:00 04/30/22 19:00 Labs/Radiology: Laboratory Results WBC 5.7 10^3/uL (4.0-10.0) 04/30/22 19:00 RBC 3.31 10^6/uL (4.1-5.3) L 04/30/22 19:00 Hgb 8.5 g/dL (11.5-15.3) L 04/30/22 19:00 Hct 26.9 % (37.0-47.0) L 04/30/22 19:00 MCV 81.3 fl (81-99) 04/30/22 19:00 MCH 25.7 pg (28.0-34.0) L 04/30/22 19:00 MCHC 31.6 g/dL (30.0-36.0) 04/30/22 19:00 RDW 16.3 % (12.1-15.1) H 04/30/22 19:00 Plt Count 567 10^3/cmm (130-400) H 04/30/22 19:00 MPV 8.4 fL (7.4-10.4) 04/30/22 19:00 Neut % (Auto) 68.7 % 04/30/22 19:00 Lymph % (Auto) 21.1 % 04/30/22 19:00 [place] % (Auto) 7.5 % 04/30/22 19:00 Eos % (Auto) 1.6 % 04/30/22 19:00 Baso % (Auto) 0.9 % 04/30/22 19:00 Neut # (Auto) 3.94 10^3/uL (1.8-7.7) 04/30/22 19:00 Lymph # (Auto) 1.2 10^3/uL (0.8-4.8) 04/30/22 19:00 [place] # (Auto) 0.4 10^3/uL (0.2-0.9) 04/30/22 19:00 Eos # (Auto) 0.1 10^3/uL (0.0-0.8) 04/30/22 19:00 Baso # (Auto) 0.1 10^3/uL (0.0-0.1) 04/30/22 19:00 Nucleated RBC % (auto) 0 % 04/30/22 19:00 Nucleated RBCs # 0.0 /100WBC 04/30/22 19:00 Sodium 140 mmol/L (136-145) 04/30/22 19:00 Potassium 3.6 mmol/L (3.5-5.1) 04/30/22 19:00 Chloride 99 mmol/L (98-107) 04/30/22 19:00 Carbon Dioxide 28 mmol/L (22-29) 04/30/22 19:00 Anion Gap 16.6 (5-19) 04/30/22 19:00 BUN 11 mg/dL (6-20) 04/30/22 19:00 Creatinine 1.2 mg/dL (0.5-0.9) H 04/30/22 19:00 GFR Calculation 48.8 mL/min (90-130) L 04/30/22 19:00 Glucose 152 mg/dL (65-115) H 04/30/22 19:00 Calculated Osmolality 292 mOsm/kg (285-295) 04/30/22 19:00 Calcium 9.4 mg/dL (8.5-10.5) 04/30/22 19:00 Total Bilirubin 0.3 mg/dL (0.15-1.2) 04/30/22 19:00 AST 17 U/L (0-32) 04/30/22 19:00 ALT 22 U/L (0-33) 04/30/22 19:00 Alkaline Phosphatase 145 U/L (35-105) H 04/30/22 19:00 Total Protein 7.3 g/dL (6.6-8.7) 04/30/22 19:00 Albumin 4.1 g/dL (3.5-5.2) 04/30/22 19:00 Globulin 3.2 g/dL (1.3-4.6) 04/30/22 19:00 Lipase 49 U/L (13-60) 04/30/22 19:00 Discharge Plan Discharge Patient Disposition: Home Clinical Impression: Abdominal pain Qualifiers: Abdominal location: generalized Qualified Code(s): R10.84 - Generalized abdominal pain Condition: Stable Prescriptions: New Reglan 10 mg tablet 10 mg PO Q6H PRN (Reason: nausea and vomiting) Qty: 20 0RF No Action Lantus Solostar U-100 Insulin 100 unit/mL (3 mL) insulin pen 40 unit SUBCUT BEDTIME 30 Days Qty: 15 2RF (DME) Comfort EZ Pen [place] 33 gauge x 1/4 needle See Rx Instructions .ROUTE .MEDSUPPLY Qty: 100 2RF Rx Instructions: As directed (DME) Blood Glucose Test Strip See Rx Instructions .Route Qty: 100 11RF Rx Instructions: Use with meter to test 3 times a day. atorvastatin 40 mg tablet 40 mg PO DAILY 30 Days Qty: 30 1RF ropinirole 1 mg tablet 1 mg PO BEDTIME 30 Days Qty: 30 1RF amlodipine 10 mg tablet 10 mg PO DAILY 30 Days Qty: 30 1RF docusate sodium [Colace] 100 mg capsule 100 mg PO BID 30 Days Qty: 60 1RF metoprolol succinate 25 mg tablet extended release 24 hr 50 mg PO DAILY 30 Days Qty: 60 1RF cyclobenzaprine 10 mg Tablet 10 mg PO BID PRN (Reason: Muscle Spasms) 30 Days Qty: 60 1RF insulin aspart U-100 [Novolog Flexpen U-100 Insulin] 100 unit/mL (3 mL) insulin pen 10 unit SUBCUT TID spironolactone 25 mg tablet 25 mg PO BID duloxetine 30 mg capsule,delayed release(DR/EC) 30 mg PO TID Qty: 90 0RF trazodone 50 mg tablet 50 mg PO BEDTIME doxepin 10 mg capsule 10 mg PO BEDTIME promethazine 25 mg tablet 25 mg PO Q6H PRN (Reason: Nausea) enoxaparin 30 mg/0.3 mL Syringe 30 mg SUBCUT Q24H 14 Days Qty: 4.2 0RF oxycodone 5 mg tablet 5 mg PO Q6H PRN (Reason: pain) Qty: 28 0RF Bactrim DS 800-160 mg tablet 1 tab PO BID Qty: 4 0RF Discharge Orders: Discharge ED (Routine); Ordered 04/30/22 Ordered By: Donavon Delaney Discharge Diet: Advance as tolerated Discharge Activity: Resume usual activity Patient Instructions: Abdominal Pain (ED) Coding Level of Care Code ED Extruding Press Operator for Tracig Fwd Exam Comprehensive
[2022-04-30] MEDS: diphenhydrAMINE 50 mg/mL SDV 1mL IM (20:54)
[2022-04-30 20:55] VITALS: RESP 18
[2022-04-30] MEDS: HYDROmorphone 1 mg/mL INJ 1 mL IM (20:55)
[2022-04-30] MEDS: metoclopramide 5 mg/mL SDV 2 mL 10 MG IM (20:55)
[2022-04-30 21:09] VITALS: BP 171/108; PULSE 89; RESP 18; O2SAT 98
== END 2022-04-30 21:10 | disposition home or self-care (01) ==
PROVIDERS: Emergency Provider Emergency Medicine
DX: R10.84 Generalized abdominal pain (principal); Z79.4 Long term (current) use of insulin; Z87.891 Personal history of nicotine dependence; Z89.512 Acquired absence of left leg below knee; I12.9 Hypertensive chronic kidney disease with stage 1 through stage 4 chronic kidney disease, or unspecified chronic kidney disease; E10.22 Type 1 diabetes mellitus with diabetic chronic kidney disease; N18.2 Chronic kidney disease, stage 2 (mild); I25.10 Atherosclerotic heart disease of native coronary artery without angina pectoris; E78.5 Hyperlipidemia, unspecified
CPT/HCPCS: 80053; 83690; 85025; 96372; 99284; J1170; J1200; J2765

== ENCOUNTER 2022-05-02 10:34 | Emergency (ER) | payer MEDICAID, SELFPAY ==
[2022-05-02] VITALS (10 sets, daily range): BP systolic 150–180; BP diastolic 81–93; PULSE 85–102; RESP 16–22; TEMP 36.8; O2SAT 99–100; BMI 23.8
--- NOTE | 2022-05-02 10:45 | W.ED.GENADLT ---
HPI - General Adult General: Chief complaint: Abdominal Pain Stated complaint: Abdominal Pain Time Seen by Provider: 05/02/22 10:44 History of Present Illness: Patient is a 42-year-old female with a history of gastroparesis, type 1 diabetes, prior cholecystectomy, and ex lap presenting to the emergency room for evaluation of right lower quadrant and right flank and back pain for the last week and a half. Patient states that she has had constant pain is now worsening over the last week. Patient has associated nausea and vomiting. Patient denies any fever/chills, diarrhea melena/hematochezia. Patient has no complaints. Patient denies any new vaginal discharge or any urinary symptoms. Patient also denies any fever/chills, cough, runny nose sore throat chest pain or shortness of breath. Onset: 1 week and half Duration:ongoing Location:home Severity:moderate Associated symptoms: Reports nausea and vomiting; Deny chest pain, dyspnea, rash or palpitations Review of Systems Const: Denies: fever(s) or chills Eyes: Denies: change in vision ENMT: Denies: mouth pain Card: Denies: chest pain or palpitations Resp: Denies: dyspnea or non-productive cough GI: Reports: abdominal pain (+RLQ and R flank pain), nausea and vomiting; Denies: diarrhea : Denies: dysuria Musc: Denies: extremity pain Skin/Breast: Denies: rash or new lesions Neuro: Denies: weakness in extremities Psych: Reports: other (Normal mood) Keith/Lymph: Denies: easy bruising PFS ED PFSH: Medical History Acute hyponatremia Acute renal failure Anemia of chronic disease Back pain C. difficile diarrhea Chronic abdominal pain Chronic pain Chronic pain syndrome CKD (chronic kidney disease) stage 2, GFR 60-89 ml/min baseline Cr is around 1.0 Coronary artery disease hx of stenting Depression Diabetes mellitus type 1 diagnosed age 15, history of peripheral neuropathy, gastroparesis and nephropathy Diabetic foot ulcer s/p surgical intervention and eventual amputation Diabetic gastroparesis Diabetic ophthalmopathy Foot osteomyelitis, right ALEJANDRO (generalized anxiety disorder) Gastroparesis GERD (gastroesophageal reflux disease) High anion gap metabolic acidosis Hyperglycemia Hyperlipidemia Hypertension Hyponatremia Insomnia 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 Nausea & vomiting Non-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 Psychiatric care PTSD (post-traumatic stress disorder) Self-harming behavior Self-harming behavior Septic prepatellar bursitis of left knee Suicidal ideation Suicidal ideation Toe infection UTI (urinary tract infection) Surgical History Below-knee amputation of left lower extremity H/O esophagogastroduodenoscopy (12/31/20) Bile reflux gastritis, grade B esophagitis H/O exploratory laparotomy x 3 History of amputation of right forefoot Hx of cholecystectomy Previous section x 3 S/P coronary artery stent placement x 1 S/P percutaneous endoscopic gastrostomy (PEG) tube placement Family History Unknown Diabetes extensive, type II Other CHF (congestive heart failure) Social History Smoking and tobacco status: never smoked Quit status (tobacco): has quit using tobacco Former quit date comment: 15 yrs ago Alcohol intake: former Former alcohol use details: 15 yrs ago Household members: spouse Marital status: Sexually active: Yes (1, ) Female Reproductive History: Spontaneous abortions: No Physical Exam Const: COMMON NORMALS: alert HENMT: COMMON NORMALS: atraumatic HEAD & SCALP: atraumatic MOUTH: moist mucous membranes not abnormal Eye: COMMON NORMALS: EOMs intact bilaterally and conjunctivae normal CONJUNCTIVA: Yes conjunctivae normal Neck/C-Spine: COMMON NORMALS: full ROM and supple Resp: COMMON NORMALS: normal respiratory effort and clear to auscultation bilaterally AUSCULTATION: clear to auscultation bilaterally Cardio: COMMON NORMALS: regular rate RATE: regular rate GI: COMMON NORMALS: Soft to palpation PALPATION: Yes Soft to palpation OTHER: + Moderate right lower quadrant and right flank tenderness palpation. NO guarding rebound, guarding, rigidity. +R CVA tenderness to percussion. Neg Pearce/Neg McBurney's point tenderness, no suprabupic tenderness to palpation. Extremity: COMMON NORMALS: full ROM Neuro: SENSORIUM/ORIENTATION: Yes alert MOTOR EXAM: No Abnormal motor strength present and Other motor observations present (no focal motor deficits) Psych: COMMON NORMALS: speech normal SPEECH: Yes normal speech MOOD & AFFECT: Yes euthymic mood Course Vital Signs: Vital signs: Vital Signs Temperature 98.3 F 05/02/22 10:46 Pulse Rate 87 05/02/22 16:07 Respiratory Rate 20 H 05/02/22 16:07 Blood Pressure 165/82 05/02/22 16:07 Pulse Oximetry 100 05/02/22 16:07 Oxygen Delivery Me thod 05/02/22 16:07 MDM - General Adult Medical Decision Making Patient is a 42-year-old female with a history of gastroparesis, type 1 diabetes, prior cholecystectomy, and ex lap presenting to the emergency room for evaluation of right lower quadrant and right flank and back pain for the last week and a half. On exam, patient has moderate tenderness palpation right lower quadrant and right flank. +CVA tenderness. No guarding or rebound tenderness. Patient has a white count of 6.5. Hemoglobin 8.4 similar to baseline. Creatinine of 1.[address] negative for any focal findings. Transvaginal ultrasound negative for any acute finding. UA is negative for UTI. Patient received IVF and pain medicine reports feeling symptomatically improved. No suspicion for other acute intra-abdominal pathology including SBO, biliary pathology, appendicitis, diverticulitis, or other emergent condition requiring surgery. Rx tylenol PRN abd pain, maalox/pepcid PRN dyspepsia, and zofran PRN nausea/vomiting Disposition: Discharge. Patient counseled regarding diagnostic impression, treatment plan. Patient given ED strict return precautions to return for continuation, worsening, or development of new symptoms. Instructed to f/u w/ PCP regarding symptoms today. Patient verbalized understanding. Lab Data : 05/02/22 11:50 05/02/22 11:50 Radiology Impressions Transvaginal US 05/02/22 10:44 IMPRESSION: Normal transvaginal pelvic ultrasound. Abdomen/Pelvis CT 05/02/22 10:53 IMPRESSION: 1. Normal appendix. 2. No GI tract obstruction. 3. Prior cholecystectomy. 4. Mild constipation. Laboratory Results WBC 6.5 10^3/uL (4.0-10.0) 05/02/22 11:50 RBC 3.33 10^6/uL (4.1-5.3) L 05/02/22 11:50 Hgb 8.4 g/dL (11.5-15.3) L 05/02/22 11:50 Hct 27.4 % (37.0-47.0) L 05/02/22 11:50 MCV 82.3 fl (81-99) 05/02/22 11:50 MCH 25.2 pg (28.0-34.0) L 05/02/22 11:50 MCHC 30.7 g/dL (30.0-36.0) 05/02/22 11:50 RDW 16.4 % (12.1-15.1) H 05/02/22 11:50 Plt Count 546 10^3/cmm (130-400) H 05/02/22 11:50 MPV 8.7 fL (7.4-10.4) 05/02/22 11:50 Neut % (Auto) 61.5 % 05/02/22 11:50 Lymph % (Auto) 28.1 % 05/02/22 11:50 [place] % (Auto) 7.9 % 05/02/22 11:50 Eos % (Auto) 1.7 % 05/02/22 11:50 Baso % (Auto) 0.6 % 05/02/22 11:50 Neut # (Auto) 3.98 10^3/uL (1.8-7.7) 05/02/22 11:50 Lymph # (Auto) 1.8 10^3/uL (0.8-4.8) 05/02/22 11:50 [place] # (Auto) 0.5 10^3/uL (0.2-0.9) 05/02/22 11:50 Eos # (Auto) 0.1 10^3/uL (0.0-0.8) 05/02/22 11:50 Baso # (Auto) 0.0 10^3/uL (0.0-0.1) 05/02/22 11:50 Nucleated RBC % (auto) 0 % 05/02/22 11:50 Nucleated RBCs # 0.0 /100WBC 05/02/22 11:50 Sodium 135 mmol/L (136-145) L 05/02/22 11:50 Potassium 3.9 mmol/L (3.5-5.1) 05/02/22 11:50 Chloride 98 mmol/L (98-107) 05/02/22 11:50 Carbon Dioxide 24 mmol/L (22-29) 05/02/22 11:50 Anion Gap 16.9 (5-19) 05/02/22 11:50 BUN 11 mg/dL (6-20) 05/02/22 11:50 Creatinine 1.2 mg/dL (0.5-0.9) H 05/02/22 11:50 GFR Calculation 48.8 mL/min (90-130) L 05/02/22 11:50 Glucose 148 mg/dL (65-115) H 05/02/22 11:50 Calculated Osmolality 282 mOsm/kg (285-295) L 05/02/22 11:50 Calcium 9.5 mg/dL (8.5-10.5) 05/02/22 11:50 Total Bilirubin 0.3 mg/dL (0.15-1.2) 05/02/22 11:50 AST 14 U/L (0-32) 05/02/22 11:50 ALT 18 U/L (0-33) 05/02/22 11:50 Alkaline Phosphatase 135 U/L (35-105) H 05/02/22 11:50 Total Protein 7.3 g/dL (6.6-8.7) 05/02/22 11:50 Albumin 4.0 g/dL (3.5-5.2) 05/02/22 11:50 Globulin 3.3 g/dL (1.3-4.6) 05/02/22 11:50 Lipase 49 U/L (13-60) 05/02/22 11:50 HCG, Qual Negative (Negative) 05/02/22 11:07 Urine Color Yellow (Yellow) 05/02/22 11:10 Urine Appearance Clear (CLEAR) 05/02/22 11:10 Urine pH 7 (5-7) 05/02/22 11:10 Ur Specific [place] 1.010 (1.005-1.030) 05/02/22 11:10 Urine Protein 1+ (Negative) H 05/02/22 11:10 Urine Glucose (UA) 1+ (Normal) H 05/02/22 11:10 Urine Ketones Negative (Negative) 05/02/22 11:10 Urine Blood Neg (Negative) 05/02/22 11:10 Urine Nitrate Negative (Negative) 05/02/22 11:10 Urine Bilirubin Neg (Negative) 05/02/22 11:10 Urine Urobilinogen Norm mg/dL (Negative) 05/02/22 11:10 Ur Leukocyte Esterase Negative (Negative) 05/02/22 11:10 Urine RBC 0-4 /hpf (0-2) H 05/02/22 11:10 Urine WBC 0-4 /hpf (0-5) H 05/02/22 11:10 Ur Squamous Epith Cells 0-4 /hpf (0-5) H 05/02/22 11:10 Amorphous Sediment Not Reportable 05/02/22 11:10 Urine Bacteria None /hpf (NONE) 05/02/22 11:10 Serum Ketones Negative (Negative) 05/02/22 11:50 Imaging Data Other Imaging: Radiologist's impression: [employer] [address] [address] Scan Report Signed Patient: Cherrie Solomon Unit #: [id number] : 1980 Age/Sex: 42 / F ADM Date: 05/02/22 Loc: ER Room/Bed: Attending Dr: Ordering Provider/Ordering MD: John Sams MD Date of Service: 05/02/22 Procedure(s): CT abdomen pelvis w con* [id number] Accession Number(s): [id number] Report Number: [id number] WS: [id number] CT ABDOMEN AND PELVIS WITH CONTRAST HISTORY: RIGHT lower quadrant and flank pain for 10 days. TECHNIQUE: Imaging performed of the abdomen and pelvis with IV contrast.? Single phase imaging of the abdomen. Coronal and sagittal reformats are submitted.? [facility] [place] use at least one of these dose optimization techniques: automated exposure control; mA and/or kV adjustment per patient size (includes targeted exams where dose is matched to clinical indication); or iterative reconstruction. IV CONTRAST: Omnipaque 350; 80 mL IV. Oral contrast: No DLP: 693.33 mGy.cm COMPARISON: 12/22/2021 Lower thorax: Lung bases are clear. Heart is normal size. No hiatal hernia. Liver/biliary system: Normal size liver. Focal steatosis along the falciform ligament. No bile duct dilatation. Limited opacification of the portal vein but no abnormality detected. Gallbladder: Status post cholecystectomy.? Pancreas: Normal size pancreas and pancreatic duct. No adjacent inflammation. Spleen: Normal size spleen. No mass or infarct. Adrenal glands: Normal. Right kidney: Normal. Left kidney: 8 mm hypodensity lower pole LEFT kidney is stable since 10/26/2021. No obstruction. Aorta: Normal. Lymphadenopathy: None. Free fluid: None. GI tract: Normal appearance of the stomach. No small bowel obstruction. Mild RIGHT colonic constipation. Normal appendix. No colonic wall thickening or edema. Abdominal wall: Supraumbilical tiny hernia containing fat only. Thinning and bulging of the supraumbilical abdominal wall. There is still an intact aponeurosis. Herniating fat but no GI tract. Pelvis: Anteverted uterus. No free fluid or mass. Urinary bladder is normal. Bones: Mild concave deformity superior endplate of T12. CT/CT abdomen pelvis w con* [id number] IMPRESSION: ? 1.? Normal appendix. 2.? No GI tract obstruction. 3.? Prior cholecystectomy. 4.? Mild constipation. ? Dictated By: Ophelia Escobar DO Signed By: Ophelia Escobar DO Signed Date/Time: 05/02/229 DD/ [address] [address] Ultrasound Report Signed Patient: Cherrie Solomon Unit #: [id number] : 1980 Age/Sex: 42 / F ADM Date: 05/02/22 Loc: ER Room/Bed: Attending Dr: Ordering Provider/Ordering MD: John Sams MD Date of Service: 05/02/22 Procedure(s): US transvaginal [id number] Accession Number(s): [id number] Report Number: [id number] WS: [id number] TRANSVAGINAL PELVIC ULTRASOUND HISTORY: rlq abd pain COMPARISON: 12/13/2020 Uterus: 6.3 cm x 3.7 cm x 1.9 cm. Normal size anteverted uterus. No fibroid or mass. Endometrium: 0.3 cm. Thin endometrium. No abnormality identified. Right ovary: 2.4 cm x 1.2 cm x 2.6 cm. Normal size and vascularity, no cystic or solid masses. Left ovary: 1.9 cm x 1.0 cm x 2.1 cm. Normal size and vascularity, no cystic or solid masses. No free fluid. US/US transvaginal [id number] IMPRESSION: ? Normal transvaginal pelvic ultrasound. ? ? ? Dictated By: Ophelia Escobar DO Signed By: Ophelia Escobar DO Signed Date/Time: 05/02/22 114 DD/ 114 Discharge Plan Discharge Patient Disposition: Home Clinical Impression: Abdominal pain Condition: Stable Prescriptions: New acetaminophen 500 mg tablet 500 mg PO Q6H PRN (Reason: pain) 5 Days Qty: 20 0RF Pepcid 20 mg tablet 20 mg PO BID PRN (Reason: abdominal pain) 10 Days Qty: 20 0RF ondansetron 4 mg tablet,disintegrating 4 mg PO TID PRN (Reason: nausea and vomiting) 4 Days Qty: 12 0RF Maalox Advanced 1,000-60 mg tablet,chewable 1 tab PO TID PRN (Reason: abdominal pain) 7 Days Qty: 21 0RF No Action Lantus Solostar U-100 Insulin 100 unit/mL (3 mL) insulin pen 40 unit SUBCUT BEDTIME 30 Days Qty: 15 2RF (DME) Comfort EZ Pen [place] 33 gauge x 1/4 needle See Rx Instructions .ROUTE .MEDSUPPLY Qty: 100 2RF Rx Instructions: As directed (DME) Blood Glucose Test Strip See Rx Instructions .Route Qty: 100 11RF Rx Instructions: Use with meter to test 3 times a day. atorvastatin 40 mg tablet 40 mg PO DAILY 30 Days Qty: 30 1RF ropinirole 1 mg tablet 1 mg PO BEDTIME 30 Days Qty: 30 1RF amlodipine 10 mg tablet 10 mg PO DAILY 30 Days Qty: 30 1RF docusate sodium [Colace] 100 mg capsule 100 mg PO BID 30 Days Qty: 60 1RF metoprolol succinate 25 mg tablet extended release 24 hr 50 mg PO DAILY 30 Days Qty: 60 1RF cyclobenzaprine 10 mg Tablet 10 mg PO BID PRN (Reason: Muscle Spasms) 30 Days Qty: 60 1RF insulin aspart U-100 [Novolog Flexpen U-100 Insulin] 100 unit/mL (3 mL) insulin pen 10 unit SUBCUT TID spironolactone 25 mg tablet 25 mg PO BID Reglan 10 mg tablet 10 mg PO Q6H PRN (Reason: nausea and vomiting) Qty: 20 0RF duloxetine 30 mg capsule,delayed release(DR/EC) 30 mg PO TID Qty: 90 0RF trazodone 50 mg tablet 50 mg PO BEDTIME doxepin 10 mg capsule 10 mg PO BEDTIME promethazine 25 mg tablet 25 mg PO Q6H PRN (Reason: Nausea) oxycodone 5 mg tablet 5 mg PO Q6H PRN (Reason: pain) Qty: 28 0RF Bactrim DS 800-160 mg tablet 1 tab PO BID Qty: 4 0RF Discharge Orders: Discharge ED (Routine); Ordered 05/02/22 Ordered By: John Sams Discharge Diet: Advance as tolerated Discharge Activity: Increase activity as tolerated Patient Instructions: Abdominal Pain (ED) Activity Restrictions/Additional Instructions: Please come back if you have any worsening abdominal pain, fever or chills, nausea or vomiting, diarrhea, blood in the stool, inability hold down liquid or solids, or any new concerning complaints. Coding Level of Care Code ED Cooky Packer for Chg Fwd Exam Comprehensive
--- NOTE | 2022-05-02 10:53 | CT_ITS ---
WS: [id number] CT ABDOMEN AND PELVIS WITH CONTRAST HISTORY: RIGHT lower quadrant and flank pain for 10 days. TECHNIQUE: Imaging performed of the abdomen and pelvis with IV contrast. Single phase imaging of the abdomen. Coronal and sagittal reformats are submitted. All CT scans at [facility] use at [address] one of these dose optimization techniques: automated exposure control; mA and/or kV adjustment per patient size (includes targeted exams where dose is matched to clinical indication); or iterative re construction. IV CONTRAST: Omnipaque 350; 80 mL IV. Oral contrast: No DLP: 693.33 mGy.cm COMPARISON: 12/22/2021 Lower thorax: Lung bases are clear. Heart is normal size. No hiatal hernia. Liver/biliary system: Normal size liver. Focal steatosis along the falciform ligament. No bile duct d ilatation. Limited opacification of the portal vein but no abnormality detected. Gallbladder: Status post cholecystectomy. Pancreas: Normal size pancreas and pancreatic duct. No adjacent inflammation. Spleen: Normal size spleen. No mass or infarct. Adrenal glands: Normal. Right kidney: Normal. Left kidney: 8 mm hypodensity lower pole LEFT kidney is stable since 10/26/2021. No obstruction. Aorta: Normal. Lymphadenopathy: None. Free fluid: None. GI tract: Normal appearance of the stomach. No small bowel obstruction. Mild RIGHT colonic constipati on. Normal appendix. No colonic wall thickening or edema. Abdominal wall: Supraumbilical tiny hernia containing fat only. Thinning and bulging of the supraumbi lical abdominal wall. There is still an intact aponeurosis. Herniating fat but no GI tract. Pelvis: Anteverted uterus. No free fluid or mass. Urinary bladder is normal. Bones: Mild concave deformity superior endplate of T12. CT/CT abdomen pelvis w con* [id number] IMPRESSION: 1. Normal appendix. 2. No GI tract obstruction. 3. Prior cholecystectomy. 4. Mild constipation.
[2022-05-02 12:00] LABS: Add Urine Microscopic? YES; Bilirubin Urine Neg (Negative); Blood Urine Neg (Negative); Glucose Urine UA 1+ (Normal); Ketones Urine Negative (Negative); Leukocyte Esterase Urine Negative (Negative); Nitrate Urine Negative (Negative); Protein Urine 1+ (Negative); Urine Appearance Clear (CLEAR); Urine Color Yellow (Yellow); Urobilinogen Urine Norm (Negative); pH Urine 7 (5-7)
[2022-05-02 12:01] LABS: Add Urine Culture? No; RBC Urine 0-4 /hpf (0-2); Squamous Epithelial Cell Urine 0-4 /hpf (0-5); WBC Urine 0-4 /hpf (0-5)
--- NOTE | 2022-05-02 12:02 | PC.NURSE ---
Multiple RN's attempted IV with and without ultrasound guidance. ERP notifed and will attempt
[2022-05-02 12:16] LABS: Basophils % 0.6 %; Eosinophils # 0.1 10^3/uL (0.0-0.8); Eosinophils % 1.7 %; Hematocrit 27.4 % (37.0-47.0); Hemoglobin 8.4 g/dL (11.5-15.3); Lymphocytes # 1.8 10^3/uL (0.8-4.8); Lymphocytes % 28.1 %; Mean Corpuscular HGB Conc 30.7 g/dL (30.0-36.0); Mean Corpuscular Hemoglobin 25.2 pg (28.0-34.0); Mean Corpuscular Volume 82.3 fl (81-99); Mean Platelet Volume 8.7 fL (7.4-10.4); Monocytes # 0.5 10^3/uL (0.2-0.9); Monocytes % 7.9 %; Neutrophils # 3.98 10^3/uL (1.8-7.7); Neutrophils % 61.5 %; Nucleated Red Blood Cells % 0 %; Platelet Count 546 10^3/cmm (130-400); Red Blood Count 3.33 10^6/uL (4.1-5.3); Red Cell Distribution Width 16.4 % (12.1-15.1); White Blood Count 6.5 10^3/uL (4.0-10.0)
[2022-05-02 12:27] LABS: Ketone (Acetest) Serum Negative (Negative)
[2022-05-02 12:35] LABS: Alanine Aminotransferase 18 U/L (0-33); Alkaline Phosphatase 135 U/L (35-105); Anion Gap 16.9 (5-19); Aspartate Amino Transferase 14 U/L (0-32); Blood Urea Nitrogen 11 mg/dL (6-20); Calcium 9.5 mg/dL (8.5-10.5); Carbon Dioxide 24 mmol/L (22-29); Chloride 98 mmol/L (98-107); Globulin 3.3 g/dL (1.3-4.6); Glomerular Filtration Rate 48.8 mL/min (90-130); Glucose 148 mg/dL (65-115); Lipase 49 U/L (13-60); Osmolality Calculated 282 mOsm/kg (285-295); Potassium 3.9 mmol/L (3.5-5.1); Sodium 135 mmol/L (136-145); Total Bilirubin 0.3 mg/dL (0.15-1.2); Total Protein 7.3 g/dL (6.6-8.7)
[2022-05-02 12:37] LABS: Creatinine Clr Calc Pharmacy 65.1017
[2022-05-02 12:54] LABS: HCG Qualitative Urine. Negative (Negative)
[2022-05-02] MEDS: fentaNYL 50 mcg/mL INJ 2mL IVP ×2 (13:47→13:48)
[2022-05-02] MEDS: ondansetron 2 mg/ML SDV 2 mL 4 MG IVP (13:50)
[2022-05-02] MEDS: sodium chloride 0.9% 1,000 ML 999 ML IV (13:52)
[2022-05-02] MEDS: iohexol 350 mg/mL 100 mL Btl IV (14:06)
== END 2022-05-02 16:21 | disposition home or self-care (01) ==
PROVIDERS: Emergency Provider Emergency Medicine
DX: R10.31 Right lower quadrant pain (principal); I12.9 Hypertensive chronic kidney disease with stage 1 through stage 4 chronic kidney disease, or unspecified chronic kidney disease; N18.2 Chronic kidney disease, stage 2 (mild); E10.43 Type 1 diabetes mellitus with diabetic autonomic (poly)neuropathy; K31.84 Gastroparesis; E10.22 Type 1 diabetes mellitus with diabetic chronic kidney disease; E10.42 Type 1 diabetes mellitus with diabetic polyneuropathy; E10.21 Type 1 diabetes mellitus with diabetic nephropathy; I25.10 Atherosclerotic heart disease of native coronary artery without angina pectoris; E78.5 Hyperlipidemia, unspecified; Z87.891 Personal history of nicotine dependence; Z95.5 Presence of coronary angioplasty implant and graft; Z90.49 Acquired absence of other specified parts of digestive tract
CPT/HCPCS: 74177; 76830; 80053; 81001; 81025; 82009; 83690; 85025; 96361; 96374; 96375; 96376; 99285; J2405; J3010; J7030; Q9967

== ENCOUNTER 2022-05-07 13:10 | Emergency (ER) | payer MEDICAID, SELFPAY ==
[2022-05-07 13:49] VITALS: BP 157/97; PULSE 100; RESP 16; TEMP 36.5; O2SAT 100
--- NOTE | 2022-05-07 14:14 | CT_ITS ---
WS: [id number] CT LUMBAR SPINE TECHNIQUE: Noncontrast CT of the lumbar spine with coronal and sagittal reformatted images. CLINICAL INFORMATION: fall COMPARISON: None. DLP: 841.[address] scans at [facility] use at least one of these dose optimization techniques: automated e xposure control; mA and/or kV adjustment per patient size (includes targeted exams where dose is matc hed to clinical indication); or iterative reconstruction. FINDINGS: Mild lumbar curve. No acute compression. No high-grade central canal stenosis. Chronic tiny LEFT L4 t ransverse process fracture with callus formation. L1-L2: Normal. L2-L3: Normal. L3-L4: Slight annular bulging with a small LEFT foraminal protrusion. Mild to moderate LEFT foraminal narrowing slightly contacts the exiting LEFT L3 nerve root. Mild facet arthropathy ligamentum flavum hypertrophy. L4-L5: Mild annular bulging. Disc bulging eccentric to the LEFT. Mild LEFT foraminal narrowing. Spina l canal and RIGHT foramen are patent. Moderate facet arthropathy. L5-S1: Mild disc bulging with slight effacement of ventral thecal sac. Tiny central protrusion. Babita en are patent. Moderate facet arthropathy. Soft tissue edema in the dorsal RIGHT lower back and sacrum soft tissues. Adrenal glands are normal. IMPRESSION: 1. No acute lumbar spine fractures. 2. Small LEFT foraminal protrusion L3-L4 with slight contact exiting LEFT L3 nerve root with mild to moderate LEFT foraminal narrowing. 3. LEFT eccentric disc bulging L4-L5 slightly contacts the exiting LEFT L4 nerve root with mild LEFT L4-L5 foraminal narrowing. 4. Shallow central protrusion L5-S1 with slight effacement of ventral thecal sac. 5. Moderate facet arthropathy L3-L5.
[2022-05-07 15:12] LABS: HCG Qualitative Urine. Negative (Negative)
[2022-05-07 15:18] LABS: Amphetamines Screen Urine Negative (Negative); Barbiturates Screen Urine Negative (Negative); Benzodiazepines Screen Urine Negative (Negative); Cocaine Screen Urine Negative (Negative); Opiate Screen Urine Negative (Negative); PCP Screen Urine Negative (Negative); THC Screen Urine Positive (Negative)
[2022-05-07 15:26] LABS: Urine Appearance Clear (CLEAR); Urine Color Yellow (Yellow); pH Urine 5 (5-7)
[2022-05-07 15:27] LABS: Add Urine Culture? No; Add Urine Microscopic? YES; Bacteria Urine TRACE /hpf; Bilirubin Urine Neg (Negative); Blood Urine Neg (Negative); Glucose Urine UA 2+ (Normal); Ketones Urine Negative (Negative); Leukocyte Esterase Urine Trace (Negative); Nitrate Urine Negative (Negative); Protein Urine 3+ (Negative); Specific Gravity, Urine 1.025 (1.005-1.030); Urobilinogen Urine Norm (Negative)
[2022-05-07] MEDS: gabapentin 100 mg Capsule 200 MG PO (16:01)
[2022-05-07] MEDS: dexamethasone 10 mg/mL INJ IM (16:01)
--- NOTE | 2022-05-07 18:21 | ED_ITS ---
HPI - Back Pain/Injury General: Chief Complaint: Back Pain/Injury Stated Complaint: lower back pain Time Seen by Provider: 05/07/22 13:53 History of Present Illness: 42-year-old female patient presents to the emergency department with lower back pain. Patient states she had a fall 3 or 4 days ago patient states her dog tripped her. Patient states she did not hit her head and did not have any loss of consciousness. Patient states she has chronic back pain but it is gotten worse. Patient denies any numbness or tingling. Patient denies inability to walk. Patient denies any history of IV drug abuse. Patient denies history of cancer. Patient denies any fever. Patient denies any urinary symptoms. Patient denies any loss of bowel or bladder Associated symptoms: Deny abdominal pain, chills, change in bowel habits, difficulty walking, dysuria, fatigue, fever(s), hematuria, nausea, syncope, urinary urgency or vomiting Review of Systems Const: Denies: fever(s), chills, body aches, change in appetite, change in weight, fatigue, malaise or diaphoresis Eyes: Denies: change in vision, blurry vision, blind spots, photophobia, eye discomfort, eye discharge, eye redness, floaters or seeing flashes ENMT: Denies: throat pain, uvular edema, enlarged tonsils, odynophagia, hoarseness, mouth pain, swelling of lips/tongue, oral sores, bleeding gums, dental pain, dry mouth, ear or mastoid pain, ear discharge, change in hearing, tinnitus, disequilibrium, nasal discharge, nasal congestion, post nasal drip or sinus pain Card: Denies: chest pain, palpitations, irregular heart rhythm, edema, swelling of feet/ankles, lightheadedness, syncope, pre-syncope, dyspnea on exertion, orthopnea, leg pain with exertion or acrocyanosis Resp: Denies: dyspnea, productive cough, non-productive cough, wheezing, stridor, pain on inspiration, change in phlegm color, hemoptysis or chest congestion GI: Denies: abdominal pain, nausea, vomiting, hematemesis, dysphagia, diarrhea, constipation, GI cramping, change in bowel habits or rectal pain : Denies: flank pain, difficulty voiding, dysuria, urinary frequency, urinary urgency, urinary hesitancy or hematuria Musc: Denies: neck pain, extremity pain, extremity swelling, joint pain, joint swelling, joint redness, joint warmth or deformity Skin/Breast: Denies: rash, pruritus, erythema, sores, new lesions, changes in skin color or dry skin Neuro: Denies: headache(s), numbness in extremities, weakness in extremities, sensory changes, lack of coordination, difficulty walking, frequent falls, dizziness, vertigo, confusion, behavioral changes, Slurred speech present, difficulty communicating thoughts or seizure-like activity Psych: Denies: anxiety, depression, suicidal ideation or homicidal ideation Endo: Denies: polyuria, polydipsia, tired all the time, cold intolerance, excessive sweating, flushing, hot flashes or heat intolerance Keith/Lymph: Denies: easy bruising, easy bleeding, petechiae, purpura, enlarged lymph nodes or tender lymph nodes All/Imm: Denies: urticaria, throat swelling, tongue swelling, facial swelling, acute wheezing or itchy eyes PFSH ED PFSH: Medical History Acute hyponatremia Acute renal failure Anemia of chronic disease Back pain C. difficile diarrhea Chronic abdominal pain Chronic pain Chronic pain syndrome CKD (chronic kidney disease) stage 2, GFR 60-89 ml/min baseline Cr is around 1.0 Coronary artery disease hx of stenting Depression Diabetes mellitus type 1 diagnosed age 15, history of peripheral neuropathy, gastroparesis and nephropathy Diabetic foot ulcer s/p surgical intervention and eventual amputation Diabetic gastroparesis Diabetic ophthalmopathy Foot osteomyelitis, right ALEJANDRO (generalized anxiety disorder) Gastroparesis GERD (gastroesophageal reflux disease) High anion gap metabolic acidosis Hyperglycemia Hyperlipidemia Hypertension Hyponatremia Insomnia 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 Nausea & vomiting Non-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 Psychiatric care PTSD (post-traumatic stress disorder) Self-harming behavior Self-harming behavior Septic prepatellar bursitis of left knee Suicidal ideation Suicidal ideation Toe infection UTI (urinary tract infection) Surgical History Below-knee amputation of left lower extremity H/O esophagogastroduodenoscopy (12/31/20) Bile reflux gastritis, grade B esophagitis H/O exploratory laparotomy x 3 History of amputation of right forefoot Hx of cholecystectomy Previous section x 3 S/P coronary artery stent placement x 1 S/P percutaneous endoscopic gastrostomy (PEG) tube placement Family History Unknown Diabetes extensive, type II Other CHF (congestive heart failure) Social History Smoking and tobacco status: never smoked Quit status (tobacco): has quit using tobacco Former quit date comment: 15 yrs ago Alcohol intake: former Former alcohol use details: 15 yrs ago Household members: spouse Marital status: Sexually active: Yes (1, ) Female Reproductive History: Spontaneous abortions: No Physical Exam Const: COMMON NORMALS: no acute distress, patient oriented x3, healthy appearing, alert and well nourished GENERAL APPEARANCE: cooperative, comfortable, well kempt and well developed; not ill appearing ORIENTATION/CONSCIOUSNESS: Yes awake, Yes oriented to person, Yes oriented to place and Yes oriented to time HENMT: COMMON NORMALS: normocephalic, atraumatic, hearing grossly normal bilaterally and moist oral mucous membranes HEAD & SCALP: normal to inspection, normocephalic and atraumatic FACE & SINUS: normal facial exam, s inuses nontender and face symmetric THROAT: no uvular edema Neck/C-Spine: COMMON NORMALS: full ROM, no lymphadenopathy, supple, no meningeal signs, no JVD and Thyroid normal GENERAL: Yes normal visual inspection and Yes trachea midline THYROID: Thyroid normal CERVICAL SPINE: Yes cervical ROM normal Lymph: LYMPHATIC: no lymphadenopathy noted and no lymphedema noted Chest: COMMONS NORMALS: normal inspection of the chest and normal palpation of entire chest wall Resp: COMMON NORMALS: normal respiratory effort, No retractions, No use of accessory muscles and clear to auscultation bilaterally EFFORT & INSPECTION: Yes able to speak in complete sentences and Yes symmetric chest movement AUSCULTATION: clear to auscultation bilaterally Cardio: COMMON NORMALS: no JVD, regular rate and regular rhythm RATE: regular rate RHYTHM: regular rhythm GI: COMMON NORMALS: Normal to inspection, nondistended, normoactive bowel sounds present, Soft to palpation, non-tender, No hepatosplenomegaly present, no masses and no bruits INSPECTION: Yes normal to inspection AUSCULTATION: Yes normoactive bowel sounds PALPATION: Yes Soft to palpation and Yes No hepatosplenomegaly present PERCUSSION: normal to percussion RECTAL EXAM: deferred : COMMON NORMALS: Yes no CVA tenderness, Yes normal external appearance, Yes normal appearance of the vagina, Yes normal appearance of the cervix, Yes No adnexal tenderness and Yes no masses BLADDER/KIDNEY EXAM: Yes no CVA tenderness Back/Pelvis: COMMON NORMALS: no CVA tenderness, thoracic and lumbar spine normal to inspection, thoraco-lumbar ROM normal and straight leg raise negative bilaterally THORACIC SPINE/UPPER BACK: Yes normal to inspection LUMBAR SPINE/LOWER BACK: Yes normal to inspection Extremity: COMMON NORMALS: normal to inspection, full ROM and capillary refill normal GENERAL: Yes normal exam except as noted Neuro: COMMON NORMALS: patient oriented x3, CN's II-XII intact bilaterally, moves all extremities, no focal motor deficits, no sensory deficits noted, deep tendon reflexes 2+ bilaterally and gait normal SENSORIUM/ORIENTATION: Yes alert, Yes oriented to person, Yes oriented to place and Yes oriented to time MENINGEAL SIGNS: Yes no meningeal signs CRANIAL NERVES: Yes CN normal except as noted SPEECH: speech normal GAIT: Yes Normal gait present SENSORY EXAM: Yes extremities MOTOR EXAM: 5/5 motor strength present throughout Psych: COMMON NORMALS: mental status grossly normal, Normal thought process present, cooperative, normal affect, speech normal, activity/motor behavior normal, denies hallucinations, denies homicidal ideation and denies suicidal ideation APPEARANCE: Yes grossly normal and Yes well kempt ATTITUDE: Yes calm ACTIVITY/MOTOR BEHAVIOR: Yes appropriate eye contact SPEECH: Yes normal speech THOUGHT PROCESS: Normal thought process present THOUGHT CONTENT: Yes Normal thought content present ATTENTION/CONCENTRATION: Yes attention grossly intact MEMORY/COGNITION: Yes memory grossly intact INSIGHT: Good insight present (Psych) JUDGEMENT: Good judgement present (Psych) Skin: COMMON NORMALS: no rashes or lesions noted, no wounds, turgor normal, no jaundice, no petechiae and no mottling GENERAL SKIN EXAM: no rashes or lesions noted and turgor normal Course ED course: Patient is well-appearing nontoxic and in no acute distress. Patient was given Decadron while here in the emergency department as well as gabapentin. Patient states gabapentin did help relieve her pain. y loss of consciousness. Patient states she has chronic back pain but it is gotten worse. Patient denies any numbness or tingling. Patient denies inability to walk. Patient denies any history of IV drug abuse. Patient denies history of cancer. Patient denies any fever. Patient denies any urinary symptoms. Patient denies any loss of bowel or bladder I discussed CT findings with patient. Patient is to follow-up with Dr. Julio the back specialist. Patient is on pain management currently and has prescription pain medications at home. I will send patient home with a short course of gabapentin. I discussed close return precautions with patient as well as follow-up. Vital Signs: Vital signs: Vital Signs Temperature 97.7 F 05/07/22 13:49 Pulse Rate 100 05/07/22 13:49 Respiratory Rate 16 05/07/22 13:49 Blood Pressure 157/97 05/07/22 13:49 Pulse Oximetry 100 05/07/22 13:49 Oxygen Delivery Me thod 05/07/22 13:49 MDM - Back Pain/Injury Medical Decision Making Patient is well-appearing nontoxic and in no acute distress. Patient was given Decadron while here in the emergency department as well as gabapentin. Patient states gabapentin did help relieve her pain. y loss of consciousness. Patient states she has chronic back pain but it is gotten worse. Patient denies any numbness or tingling. Patient denies inability to walk. Patient denies any history of IV drug abuse. Patient denies history of cancer. Patient denies any fever. Patient denies any urinary symptoms. Patient denies any loss of bowel or bladder I discussed CT findings with patient. Patient is to follow-up with Dr. Julio the back specialist. Patient is on pain management currently and has prescription pain medications at home. I will send patient home with a short course of gabapentin. I discussed close return precautions with patient as well as follow-up. Labs Laboratory Results HCG, Qual Negative (Negative) 05/07/22 14:47 Urine Color Yellow (Yellow) 05/07/22 14:47 Urine Appearance Clear (CLEAR) 05/07/22 14:47 Urine pH 5 (5-7) 05/07/22 14:47 Ur Specific [place] 1.025 (1.005-1.030) 05/07/22 14:47 Urine Protein 3+ (Negative) H 05/07/22 14:47 Urine Glucose (UA) 2+ (Normal) H 05/07/22 14:47 Urine Ketones Negative (Negative) 05/07/22 14:47 Urine Blood Neg (Negative) 05/07/22 14:47 Urine Nitrate Negative (Negative) 05/07/22 14:47 Urine Bilirubin Neg (Negative) 05/07/22 14:47 Urine Urobilinogen Norm mg/dL (Negative) 05/07/22 14:47 Ur Leukocyte Esterase Trace (Negative) H 05/07/22 14:47 Urine RBC None /hpf (0-2) 05/07/22 14:47 Urine WBC 5-10 /hpf (0-5) H 05/07/22 14:47 Ur Squamous Epith Cells 5-10 /hpf (0-5) H 05/07/22 14:47 Amorphous Sediment Not Reportable 05/07/22 14:47 Urine Bacteria Trace /hpf (NONE) 05/07/22 14:47 Urine Opiates Screen Negative ng/mL (Negative) 05/07/22 14:47 Ur Barbiturates Screen Negative ng/mL (Negative) 05/07/22 14:47 Ur Phencyclidine Scrn Negative ng/mL (Negative) 05/07/22 14:47 Ur Amphetamines Screen Negative ng/mL (Negative) 05/07/22 14:47 U Benzodiazepines Scrn Negative ng/mL (Negative) 05/07/22 14:47 Urine Cocaine Screen Negative ng/mL (Negative) 05/07/22 14:47 U Marijuana (THC) Screen Positive ng/mL (Negative) H 05/07/22 14:47 Discharge Plan Discharge Patient Disposition: Home Clinical Impression: Chronic lumbar pain Condition: Stable Prescriptions: New gabapentin 100 mg capsule 100 mg PO Q8H Qty: 20 0RF No Action Lantus Solostar U-100 Insulin 100 unit/mL (3 mL) insulin pen 40 unit SUBCUT BEDTIME 30 Days Qty: 15 2RF (DME) Comfort EZ Pen [place] 33 gauge x 1/4 needle See Rx Instructions .ROUTE .MEDSUPPLY Qty: 100 2RF Rx Instructions: As directed (DME) Blood Glucose Test Strip See Rx Instructions .Route Qty: 100 11RF Rx Instructions: Use with meter to test 3 times a day. atorvastatin 40 mg tablet 40 mg PO DAILY 30 Days Qty: 30 1RF ropinirole 1 mg tablet 1 mg PO BEDTIME 30 Days Qty: 30 1RF amlodipine 10 mg tablet 10 mg PO DAILY 30 Days Qty: 30 1RF docusate sodium [Colace] 100 mg capsule 100 mg PO BID 30 Days Qty: 60 1RF metoprolol succinate 25 mg tablet extended release 24 hr 50 mg PO DAILY 30 Days Qty: 60 1RF cyclobenzaprine 10 mg Tablet 10 mg PO BID PRN (Reason: Muscle Spasms) 30 Days Qty: 60 1RF insulin aspart U-100 [Novolog Flexpen U-100 Insulin] 100 unit/mL (3 mL) insulin pen 10 unit SUBCUT TID spironolactone 25 mg tablet 25 mg PO BID Reglan 10 mg tablet 10 mg PO Q6H PRN (Reason: nausea and vomiting) Qty: 20 0RF Pepcid 20 mg tablet 20 mg PO BID PRN (Reason: abdominal pain) 10 Days Qty: 20 0RF Maalox Advanced 1,000-60 mg tablet,chewable 1 tab PO TID PRN (Reason: abdominal pain) 7 Days Qty: 21 0RF duloxetine 30 mg capsule,delayed release(DR/EC) 30 mg PO TID Qty: 90 0RF trazodone 50 mg tablet 50 mg PO BEDTIME doxepin 10 mg capsule 10 mg PO BEDTIME promethazine 25 mg tablet 25 mg PO Q6H PRN (Reason: Nausea) oxycodone 5 mg tablet 5 mg PO Q6H PRN (Reason: pain) Qty: 28 0RF Bactrim DS 800-160 mg tablet 1 tab PO BID Qty: 4 0RF Discharge Orders: Discharge ED (Routine); Ordered 05/07/22 Ordered By: Mariluz Dotson Referrals: Rl Eli DO [Physician] - 4-7 days Discharge Diet: Advance as tolerated Discharge Activity: Increase activity as tolerated Activity Restrictions/Additional Instructions: Please take meds as prescribed Follow up as discussed Return to ER with any worsening of symptoms such as loss of bowel or bladder, fever, inability to walk or any other concerns Coding Level of Care Code ED Social Contact Worker for Kim Mitchell
== END 2022-05-07 16:54 | disposition home or self-care (01) ==
PROVIDERS: Emergency Provider Registered Nurse
DX: G89.29 Other chronic pain (principal); M54.50 Low back pain, unspecified; Z79.4 Long term (current) use of insulin; Z87.891 Personal history of nicotine dependence; Z89.512 Acquired absence of left leg below knee; I12.9 Hypertensive chronic kidney disease with stage 1 through stage 4 chronic kidney disease, or unspecified chronic kidney disease; E10.22 Type 1 diabetes mellitus with diabetic chronic kidney disease; N18.2 Chronic kidney disease, stage 2 (mild); E78.5 Hyperlipidemia, unspecified
CPT/HCPCS: 72131; 80306; 81001; 81025; 96372; 99285; J1100

== ENCOUNTER 2022-05-14 15:26 | Emergency (ER) | payer MEDICAID, SELFPAY ==
[2022-05-14 16:18] VITALS: BP 202/85; PULSE 104; RESP 16; TEMP 36.9; O2SAT 97; BMI 23.6
[2022-05-14 17:53] LABS: Basophils % 0.4 %; Eosinophils % 0.2 %; Hematocrit 33.7 % (37.0-47.0); Hemoglobin 9.8 g/dL (11.5-15.3); Lymphocytes # 1.4 10^3/uL (0.8-4.8); Lymphocytes % 14.6 %; Mean Corpuscular HGB Conc 29.1 g/dL (30.0-36.0); Mean Corpuscular Hemoglobin 24.8 pg (28.0-34.0); Mean Corpuscular Volume 85.3 fl (81-99); Mean Platelet Volume 10.3 fL (7.4-10.4); Monocytes # 0.6 10^3/uL (0.2-0.9); Monocytes % 6.6 %; Neutrophils # 7.38 10^3/uL (1.8-7.7); Neutrophils % 77.9 %; Nucleated Red Blood Cells % 0 %; Red Blood Count 3.95 10^6/uL (4.1-5.3); Red Cell Distribution Width 16.1 % (12.1-15.1); White Blood Count 9.5 10^3/uL (4.0-10.0)
[2022-05-14 18:15] LABS: Alanine Aminotransferase 14 U/L (0-33); Albumin Level 3.7 g/dL (3.5-5.2); Alkaline Phosphatase 147 U/L (35-105); Aspartate Amino Transferase 18 U/L (0-32); Blood Urea Nitrogen 13 mg/dL (6-20); Carbon Dioxide 22 mmol/L (22-29); Chloride 99 mmol/L (98-107); Glomerular Filtration Rate 48.8 mL/min (90-130); Glucose 198 mg/dL (65-115); Lipase 38 U/L (13-60); Osmolality Calculated 292 mOsm/kg (285-295); Sodium 138 mmol/L (136-145); Total Bilirubin 0.4 mg/dL (0.15-1.2); Total Protein 7.7 g/dL (6.6-8.7)
[2022-05-14 18:17] LABS: Anion Gap 20.3 (5-19); Potassium 3.3 mmol/L (3.5-5.1); Slide Review Slide Review Perform
[2022-05-14 18:48] LABS: Add Urine Culture? No; Add Urine Microscopic? YES; Bacteria Urine 1+ /hpf; Bilirubin Urine Neg (Negative); Blood Urine Neg (Negative); Glucose Urine UA 4+ (Normal); Ketones Urine Negative (Negative); Leukocyte Esterase Urine Negative (Negative); Nitrate Urine Negative (Negative); Protein Urine 3+ (Negative); RBC Urine 0-4 /hpf (0-2); Specific Gravity, Urine 1.005 (1.005-1.030); Urine Appearance Clear (CLEAR); Urine Color Yellow (Yellow); Urobilinogen Urine Norm (Negative); WBC Urine 0-4 /hpf (0-5); pH Urine 7 (5-7)
[2022-05-14 20:25] VITALS: BP 132/88; PULSE 86; RESP 17; O2SAT 95
--- NOTE | 2022-05-14 20:27 | W.ED.ABDPA2 ---
HPI - Abdominal Pain General: Chief Complaint: Abdominal Pain Stated Complaint: Right side back pain, vomitting, possible seizures Time Seen by Provider: 05/14/22 20:23 Source: patient Mode of arrival: ambulatory Limitations: no limitations History of Present Illness: 42-year-old female who states she been having abdominal along with flank pain over the last 2 days she states she is also had some nausea and vomiting. She rates her pain a 5 out of 10 denies any worsening proved factors denies any fevers denies any chest pain. Associated Symptoms: Reports nausea and vomiting; Denies chills, dysuria and fever(s) Review of Systems Const: Denies: fever(s), chills, body aches or change in appetite Eyes: Denies: blurry vision or eye discomfort ENMT: Denies: throat pain or dental pain Card: Denies: chest pain Resp: Denies: dyspnea GI: Reports: abdominal pain, nausea and vomiting : Denies: dysuria Musc: Reports: back pain Skin/Breast: Denies: rash Neuro: Denies: headache(s) Psych: Denies: depression Keith/Lymph: Denies: easy bruising All/Imm: Denies: urticaria PFSH ED PFSH: Medical History Acute hyponatremia Acute renal failure Anemia of chronic disease Back pain C. difficile diarrhea Chronic abdominal pain Chronic pain Chronic pain syndrome CKD (chronic kidney disease) stage 2, GFR 60-89 ml/min baseline Cr is around 1.0 Coronary artery disease hx of stenting Depression Diabetes mellitus type 1 diagnosed age 15, history of peripheral neuropathy, gastroparesis and nephropathy Diabetic foot ulcer s/p surgical intervention and eventual amputation Diabetic gastroparesis Diabetic ophthalmopathy Foot osteomyelitis, right ALEJANDRO (generalized anxiety disorder) Gastroparesis GERD (gastroesophageal reflux disease) High anion gap metabolic acidosis Hyperglycemia Hyperlipidemia Hypertension Hyponatremia Insomnia 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 Nausea & vomiting Non-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 Psychiatric care PTSD (post-traumatic stress disorder) Self-harming behavior Self-harming behavior Septic prepatellar bursitis of left knee Suicidal ideation Suicidal ideation Toe infection UTI (urinary tract infection) Surgical History Below-knee amputation of left lower extremity H/O esophagogastroduodenoscopy (12/31/20) Bile reflux gastritis, grade B esophagitis H/O exploratory laparotomy x 3 History of amputation of right forefoot Hx of cholecystectomy Previous section x 3 S/P coronary artery stent placement x 1 S/P percutaneous endoscopic gastrostomy (PEG) tube placement Family History Unknown Diabetes extensive, type II Other CHF (congestive heart failure) Social History Smoking and tobacco status: never smoked Quit status (tobacco): has quit using tobacco Former quit date comment: 15 yrs ago Alcohol intake: former Former alcohol use details: 15 yrs ago Household members: spouse Marital status: Sexually active: Yes (1, ) Female Reproductive History: Spontaneous abortions: No Physical Exam Const: COMMON NORMALS: no acute distress, patient oriented x3 and healthy appearing HENMT: COMMON NORMALS: normocephalic and atraumatic HEAD & SCALP: normocephalic and atraumatic Eye: COMMON NORMALS: Equal, round and reactive pupils present and EOMs intact bilaterally PUPIL: Yes Equal, round and reactive pupils present Neck/C-Spine: COMMON NORMALS: full ROM and supple Chest: COMMONS NORMALS: normal inspection of the chest and normal palpation of entire chest wall Resp: COMMON NORMALS: normal respiratory effort, No retractions, No use of accessory muscles and clear to auscultation bilaterally AUSCULTATION: clear to auscultation bilaterally Cardio: COMMON NORMALS: regular rate, regular rhythm and No murmurs present (Cardio) RATE: regular rate RHYTHM: regular rhythm GI: COMMON NORMALS: Normal to inspection, nondistended, normoactive bowel sounds present, Soft to palpation, non-tender and no masses PALPATION: Yes Soft to palpation Extremity: COMMON NORMALS: normal to inspection and full ROM Neuro: COMMON NORMALS: patient oriented x3, moves all extremities and no focal motor deficits Psych: COMMON NORMALS: mental status grossly normal, Normal thought process present and cooperative THOUGHT PROCESS: Normal thought process present Skin: COMMON NORMALS: no rashes or lesions noted and no wounds GENERAL SKIN EXAM: no rashes or lesions noted Course Vital Signs: Vital signs: Vital Signs Temperature 98.4 F 05/14/22 16:18 Pulse Rate 86 05/14/22 20:25 Respiratory Rate 17 05/14/22 20:25 Blood Pressure 132/88 05/14/22 20:25 Pulse Oximetry 95 05/14/22 20:25 Oxygen Delivery Me thod 05/14/22 20:25 MDM - Abdominal Pain Medical Decision Making Patient presents with vomiting abdominal pain is chronic in nature she is well-appearing here feels improved blood work is normal she is stable for discharge she is return if worsening Lab Data : 05/14/22 17:46 05/14/22 17:46 Labs/Radiology: Laboratory Results WBC 9.5 10^3/uL (4.0-10.0) 05/14/22 17:46 RBC 3.95 10^6/uL (4.1-5.3) L 05/14/22 17:46 Hgb 9.8 g/dL (11.5-15.3) L 05/14/22 17:46 Hct 33.7 % (37.0-47.0) L 05/14/22 17:46 MCV 85.3 fl (81-99) 05/14/22 17:46 MCH 24.8 pg (28.0-34.0) L 05/14/22 17:46 MCHC 29.1 g/dL (30.0-36.0) L 05/14/22 17:46 RDW 16.1 % (12.1-15.1) H 05/14/22 17:46 Plt Count TNP 05/14/22 17:46 MPV 10.3 fL (7.4-10.4) 05/14/22 17:46 Neut % (Auto) 77.9 % 05/14/22 17:46 Lymph % (Auto) 14.6 % 05/14/22 17:46 [place] % (Auto) 6.6 % 05/14/22 17:46 Eos % (Auto) 0.2 % 05/14/22 17:46 Baso % (Auto) 0.4 % 05/14/22 17:46 Neut # (Auto) 7.38 10^3/uL (1.8-7.7) 05/14/22 17:46 Lymph # (Auto) 1.4 10^3/uL (0.8-4.8) 05/14/22 17:46 [place] # (Auto) 0.6 10^3/uL (0.2-0.9) 05/14/22 17:46 Eos # (Auto) 0.0 10^3/uL (0.0-0.8) 05/14/22 17:46 Baso # (Auto) 0.0 10^3/uL (0.0-0.1) 05/14/22 17:46 Nucleated RBC % (auto) 0 % 05/14/22 17:46 Nucleated RBCs # 0.0 /100WBC 05/14/22 17:46 Sodium 138 mmol/L (136-145) 05/14/22 17:46 Potassium 3.3 mmol/L (3.5-5.1) L 05/14/22 17:46 Chloride 99 mmol/L (98-107) 05/14/22 17:46 Carbon Dioxide 22 mmol/L (22-29) 05/14/22 17:46 Anion Gap 20.3 (5-19) H 05/14/22 17:46 BUN 13 mg/dL (6-20) 05/14/22 17:46 Creatinine 1.2 mg/dL (0.5-0.9) H 05/14/22 17:46 GFR Calculation 48.8 mL/min (90-130) L 05/14/22 17:46 Glucose 198 mg/dL (65-115) H 05/14/22 17:46 Calculated Osmolality 292 mOsm/kg (285-295) 05/14/22 17:46 Calcium 10.0 mg/dL (8.5-10.5) 05/14/22 17:46 Total Bilirubin 0.4 mg/dL (0.15-1.2) 05/14/22 17:46 AST 18 U/L (0-32) 05/14/22 17:46 ALT 14 U/L (0-33) 05/14/22 17:46 Alkaline Phosphatase 147 U/L (35-105) H 05/14/22 17:46 Total Protein 7.7 g/dL (6.6-8.7) 05/14/22 17:46 Albumin 3.7 g/dL (3.5-5.2) 05/14/22 17:46 Globulin 4.0 g/dL (1.3-4.6) 05/14/22 17:46 Lipase 38 U/L (13-60) 05/14/22 17:46 Urine Color Yellow (Yellow) 05/14/22 16:25 Urine Appearance Clear (CLEAR) 05/14/22 16:25 Urine pH 7 (5-7) 05/14/22 16:25 Ur Specific [place] 1.005 (1.005-1.030) 05/14/22 16:25 Urine Protein 3+ (Negative) H 05/14/22 16:25 Urine Glucose (UA) 4+ (Normal) H 05/14/22 16:25 Urine Ketones Negative (Negative) 05/14/22 16:25 Urine Blood Neg (Negative) 05/14/22 16:25 Urine Nitrate Negative (Negative) 05/14/22 16:25 Urine Bilirubin Neg (Negative) 05/14/22 16:25 Urine Urobilinogen Norm mg/dL (Negative) 05/14/22 16:25 Ur Leukocyte Esterase Negative (Negative) 05/14/22 16:25 Urine RBC 0-4 /hpf (0-2) H 05/14/22 16:25 Urine WBC 0-4 /hpf (0-5) H 05/14/22 16:25 Ur Squamous Epith Cells 10-15 /hpf (0-5) H 05/14/22 16:25 Amorphous Sediment Not Reportable 05/14/22 16:25 Urine Bacteria 1+ /hpf (NONE) H 05/14/22 16:25 Urine Yeast Trace /hpf 05/14/22 16:25 Discharge Plan Discharge Patient Disposition: Home Clinical Impression: Vomiting Abdominal pain Qualifiers: Abdominal location: generalized Qualified Code(s): R10.84 - Generalized abdominal pain Condition: Stable Prescriptions: New Reglan 10 mg tablet 10 mg PO Q6H PRN (Reason: nausea and vomiting) Qty: 20 0RF No Action Lantus Solostar U-100 Insulin 100 unit/mL (3 mL) insulin pen 40 unit SUBCUT BEDTIME 30 Days Qty: 15 2RF (DME) Comfort EZ Pen [place] 33 gauge x 1/4 needle See Rx Instructions .ROUTE .MEDSUPPLY Qty: 100 2RF Rx Instructions: As directed (DME) Blood Glucose Test Strip See Rx Instructions .Route Qty: 100 11RF Rx Instructions: Use with meter to test 3 times a day. atorvastatin 40 mg tablet 40 mg PO DAILY 30 Days Qty: 30 1RF ropinirole 1 mg tablet 1 mg PO BEDTIME 30 Days Qty: 30 1RF amlodipine 10 mg tablet 10 mg PO DAILY 30 Days Qty: 30 1RF docusate sodium [Colace] 100 mg capsule 100 mg PO BID 30 Days Qty: 60 1RF metoprolol succinate 25 mg tablet extended release 24 hr 50 mg PO DAILY 30 Days Qty: 60 1RF cyclobenzaprine 10 mg Tablet 10 mg PO BID PRN (Reason: Muscle Spasms) 30 Days Qty: 60 1RF insulin aspart U-100 [Novolog Flexpen U-100 Insulin] 100 unit/mL (3 mL) insulin pen 10 unit SUBCUT TID spironolactone 25 mg tablet 25 mg PO BID Reglan 10 mg tablet 10 mg PO Q6H PRN (Reason: nausea and vomiting) Qty: 20 0RF duloxetine 30 mg capsule,delayed release(DR/EC) 30 mg PO TID Qty: 90 0RF trazodone 50 mg tablet 50 mg PO BEDTIME doxepin 10 mg capsule 10 mg PO BEDTIME promethazine 25 mg tablet 25 mg PO Q6H PRN (Reason: Nausea) oxycodone 5 mg tablet 5 mg PO Q6H PRN (Reason: pain) Qty: 28 0RF Bactrim DS 800-160 mg tablet 1 tab PO BID Qty: 4 0RF gabapentin 100 mg capsule 100 mg PO Q8H Qty: 20 0RF Discharge Orders: Discharge ED (Routine); Ordered 05/14/22 Ordered By: Donavon Delaney Referrals: Anai Castellanos D[employer] ST[employer]ING [employer]ESS OPERATOR [Primary Care Provider] - Discharge Diet: Advance as tolerated Discharge Activity: Resume usual activity Patient Instructions: Acute Nausea and Vomiting (ED), Abdominal Pain (ED) Coding Level of Care Code ED Rn Acute Care for Chg Fwd Exam Comprehensive
[2022-05-14] MEDS: metoclopramide 5 mg/mL SDV 2 mL 10 MG IM (20:44)
[2022-05-14] MEDS: HYDROmorphone 1 mg/mL INJ 1 mL 0.5 MG IM (20:44)
[2022-05-14] MEDS: diphenhydrAMINE 50 mg/mL SDV 1mL IM (20:44)
== END 2022-05-14 20:52 | disposition home or self-care (01) ==
PROVIDERS: Physician Assistant; Emergency Provider Emergency Medicine; PCP Nurse Practitioner Family
DX: R10.84 Generalized abdominal pain (principal); R11.11 Vomiting without nausea; Z79.4 Long term (current) use of insulin; Z87.891 Personal history of nicotine dependence; I12.9 Hypertensive chronic kidney disease with stage 1 through stage 4 chronic kidney disease, or unspecified chronic kidney disease; E10.22 Type 1 diabetes mellitus with diabetic chronic kidney disease; N18.2 Chronic kidney disease, stage 2 (mild); I25.10 Atherosclerotic heart disease of native coronary artery without angina pectoris; E78.5 Hyperlipidemia, unspecified
CPT/HCPCS: 80053; 81001; 83690; 85025; 96372; 99284; J1170; J1200; J2765

== ENCOUNTER 2022-05-18 17:31 | Emergency (ER) | payer MEDICAID, SELFPAY ==
[2022-05-18 18:09] VITALS: BMI 23.6
[2022-05-18 18:12] VITALS: BP 185/88; PULSE 89; RESP 16; TEMP 37.3; O2SAT 99
[2022-05-18 19:12] VITALS: BP 168/76; PULSE 75; RESP 16; O2SAT 100
[2022-05-18 19:16] LABS: Basophils % 0.4 %; Eosinophils # 0.1 10^3/uL (0.0-0.8); Eosinophils % 1.8 %; Hemoglobin 8.6 g/dL (11.5-15.3); Lymphocytes # 1.2 10^3/uL (0.8-4.8); Lymphocytes % 16.9 %; Mean Corpuscular HGB Conc 29.7 g/dL (30.0-36.0); Mean Corpuscular Hemoglobin 24.9 pg (28.0-34.0); Mean Corpuscular Volume 84.1 fl (81-99); Mean Platelet Volume 8.7 fL (7.4-10.4); Monocytes # 0.5 10^3/uL (0.2-0.9); Monocytes % 6.8 %; Neutrophils # 5.19 10^3/uL (1.8-7.7); Neutrophils % 73.8 %; Nucleated Red Blood Cells % 0 %; Platelet Count 418 10^3/cmm (130-400); Red Blood Count 3.45 10^6/uL (4.1-5.3); Red Cell Distribution Width 16.3 % (12.1-15.1)
[2022-05-18 19:35] LABS: Alanine Aminotransferase 13 U/L (0-33); Albumin Level 3.6 g/dL (3.5-5.2); Alkaline Phosphatase 120 U/L (35-105); Anion Gap 15.4 (5-19); Aspartate Amino Transferase 18 U/L (0-32); Blood Urea Nitrogen 15 mg/dL (6-20); Calcium 9.4 mg/dL (8.5-10.5); Carbon Dioxide 28 mmol/L (22-29); Chloride 94 mmol/L (98-107); Globulin 3.7 g/dL (1.3-4.6); Glomerular Filtration Rate 48.8 mL/min (90-130); Glucose 237 mg/dL (65-115); Lipase 79 U/L (13-60); Osmolality Calculated 287 mOsm/kg (285-295); Potassium 3.4 mmol/L (3.5-5.1); Sodium 134 mmol/L (136-145); Total Bilirubin 0.2 mg/dL (0.15-1.2); Total Protein 7.3 g/dL (6.6-8.7)
[2022-05-18 19:36] LABS: Bilirubin Urine Negative (Negative); Blood Urine Negative (Negative); Glucose Urine UA 3+ (Normal); Ketones Urine Negative (Negative); Leukocyte Esterase Urine Negative (Negative); Nitrate Urine Negative; Protein Urine 1+ (Negative); Urine Appearance Clear (CLEAR); Urine Color Yellow (Yellow); Urobilinogen Urine 0.2 mg/dL (Negative)
[2022-05-18 19:37] LABS: Add Urine Microscopic? YES
[2022-05-18 19:38] LABS: HCG Qualitative Urine. Negative (Negative)
[2022-05-18 19:41] LABS: Add Urine Culture? No; Bacteria Urine TRACE /hpf; RBC Urine 0-4 /hpf (0-2); Squamous Epithelial Cell Urine 0-4 /hpf (0-5); WBC Urine 0-4 /hpf (0-5)
--- NOTE | 2022-05-18 19:58 | USR_ITS ---
PROCEDURE INFORMATION: Exam: US Abdomen, Limited; Appendix Exam date and time: 05/18/2022 9:21 PM Age: 42 years old Clinical indication: Other: Rlq; Patient HX: PT in extreme pain. Pain meds didn't seem to help; Additional info: Rlq pain TECHNIQUE: Imaging protocol: Real time ultrasound of the abdomen with image documentation. Limited exam focused on the appendix. COMPARISON: CT abdomen pelvis w con* [id number] 05/02/2022 2:02 PM FINDINGS: Appendix: The appendix is not definitely visualized. No blind-ending, noncompressible tubular structures to suggest appendicitis however. Intraperitoneal space: No loculated fluid collections. No free fluid. US/US appendix [id number] IMPRESSION: Appendix not definitely visualized. No acute abnormality in the right lower quadrant however. CT scan of the abdomen and pelvis with contrast or MRI of the abdomen would be recommended if clinical concern for appendicitis persists.
--- NOTE | 2022-05-18 19:58 | USR_ITS ---
PROCEDURE INFORMATION: Exam: US Pelvis Complete, Transabdominal and US Pelvis, Transvaginal Exam date and time: 05/18/2022 9:18 PM Age: 42 years old Clinical indication: Abdominal pain; Right lower quadrant; Prior surgery; Surgery date: 6+ months; Surgery type: 3 c sections and an exploratory surg; Additional info: Rlq pain TECHNIQUE: Imaging protocol: Real-time complete transabdominal and transvaginal pelvic ultrasound with image documentation. Transvaginal imaging was used for better evaluation of the endometrium, adnexa, and/or cervix. COMPARISON: US pelvic with transvaginal 12/13/2020 9:15 AM FINDINGS: Uterus: The uterus measures 5.8 x 2.4 x 4.1 cm. No myometrial mass. The endometrium is unremarkable. Endometrium measures 2.5 mm. Cervix: Multiple Nabothian cysts in the cervix. Right ovary/adnexa: The right ovary measures 1.7 x 1.6 x 1.0 cm. No focal abnormality in the right ovary. There is high resistance flow in the right ovary however, possible right ovarian torsion cannot be ruled out. Left ovary/adnexa: The left ovary is unremarkable. The left ovary measures 2.1 x 1.7 x 1.1 cm.Normal arterial and venous waveforms on Doppler imaging in the left ovary. Intraperitoneal space: No free fluid in the pelvis. Urinary bladder: Unremarkable as visualized. US/US pelvic with transvaginal IMPRESSION: No focal abnormality in the right ovary. There is high resistance flow in the right ovary however, possible right ovarian torsion cannot be ruled out.
--- NOTE | 2022-05-18 20:36 | ED_ITS ---
Documented by User: ISAAC Martin 05/19/22 02:00 HPI - Abdominal Pain General: Chief Complaint: Abdominal Pain Stated Complaint: right side pain Time Seen by Provider: 05/18/22 19:19 History of Present Illness: 42-year-old female in today for right side and right abdominal pain. Patient is a diabetic patient with a history of a below the knee amputation and history of gastroparesis. She has had a cholecystectomy in the past. She has been into the ER numerous times over the past 1 month. She reports that she had been having ongoing nausea and vomiting. She reports that the last time she was in the ER she was given medication for nausea and also for pain. She reports that that helped significantly but yesterday she started having nausea and vomiting again with severe right side abdominal pain. She denies any urinary symptoms. She denies fever, chills. She reports her last time vomiting was on the way to the ER tonight. She has not taken any insulin today. Review of Systems General: Reports: 10 or more systems reviewed and unremarkable except in HPI and below PFSH ED PFSH: Medical History Acute hyponatremia Acute renal failure Anemia of chronic disease Back pain C. difficile diarrhea Chronic abdominal pain Chronic pain Chronic pain syndrome CKD (chronic kidney disease) stage 2, GFR 60-89 ml/min baseline Cr is around 1.0 Coronary artery disease hx of stenting Depression Diabetes mellitus type 1 diagnosed age 15, history of peripheral neuropathy, gastroparesis and nephr opathy Diabetic foot ulcer s/p surgical intervention and eventual amputation Diabetic gastroparesis Diabetic ophthalmopathy Foot osteomyelitis, right ALEJANDRO (generalized anxiety disorder) Gastroparesis GERD (gastroesophageal reflux disease) High anion gap metabolic acidosis Hyperglycemia Hyperlipidemia Hypertension Hyponatremia Insomnia 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 Nausea & vomiting Non-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 Psychiatric care PTSD (post-traumatic stress disorder) Self-harming behavior Self-harming behavior Septic prepatellar bursitis of left knee Suicidal ideation Suicidal ideation Toe infection UTI (urinary tract infection) Surgical History Below-knee amputation of left lower extremity H/O esophagogastroduodenoscopy (12/31/20) Bile reflux gastritis, grade B esophagitis H/O exploratory laparotomy x 3 History of amputation of right forefoot Hx of cholecystectomy Previous section x 3 S/P coronary artery stent placement x 1 S/P percutaneous endoscopic gastrostomy (PEG) tube placement Family History Unknown Diabetes extensive, type II Other CHF (congestive heart failure) Social History Smoking and tobacco status: never smoked Quit status (tobacco): has quit using tobacco Former quit date comment: 15 yrs ago Alcohol intake: former Former alcohol use details: 15 yrs ago Household members: spouse Marital status: Sexually active: Yes (1, ) Female Reproductive History: Spontaneous abortions: No Physical Exam Const: COMMON NORMALS: patient oriented x3, no limitations (Patient in a wheel chair due to a left BKA) and alert Neck/C-Spine: COMMON NORMALS: no JVD Resp: COMMON NORMALS: normal respiratory effort, No use of accessory muscles and clear to auscultation bilaterally AUSCULTATION: clear to auscultation bilaterally Cardio: COMMON NORMALS: no JVD, regular rate, regular rhythm, S1 normal heart sound present, S2 normal heart sound present and No murmurs present (Cardio) RATE: regular rate RHYTHM: regular rhythm HEART SOUNDS: S1 normal heart sound present and S2 normal heart sound present GI: COMMON NORMALS: Normal to inspection, nondistended, normoactive bowel sounds present, Soft to palpation and No hepatosplenomegaly present PALPATION : Yes Soft to palpation, Yes Tenderness to palpation present (GI) Details: LLQ and RLQ, No Guarding due to palpation present (GI), No Rigid due to palpation and Yes No hepatosplenomegaly present OTHER: Abdomen is soft to palpation with generalized tenderness to palpation right lower quadrant abdomen, suprapubic, left lower quadrant abdomen. No rebound or guarding noted. Negative McBurney's negative Pearce's positive right-sided CVA tenderness : BLADDER/KIDNEY EXAM: Yes CVA tenderness on the right Back/Pelvis: GENERAL BACK: Yes CVA tenderness Neuro: COMMON NORMALS: patient oriented x3 SENSORIUM/ORIENTATION: Yes alert Course Consultations: Consultation #1: [id number]?spoke with OB physician on-call. Advised to have pelvic ultrasound results with radiologist reported abnormal flow to the right ovary. OB physician advised that the patient does have flow to the right ovary and the ovary is not enlarged he has no concern for ovarian torsion. Recommends pelvic exam possible treatment for PID if concerns Vital Signs: Vital signs: Vital Signs Temperature 99.2 F 05/18/22 18:12 Pulse Rate 80 05/19/22 00:00 Respiratory Rate 16 05/19/22 00:00 Blood Pressure 143/79 05/19/22 00:00 Pulse Oximetry 97 05/19/22 00:00 Oxygen Delivery Me thod 05/19/22 00:00 MDM - Abdominal Pain Medical Decision Making The patient is a 42-year-old female with a history of diabetes previous gastroparesis previous cholecystectomy previous ex lap. Patient has been seen at least twice in the past 3 weeks for similar complaints. He was seen for right-sided abdominal pain and CVA tenderness. She had a work-up which included CT abdomen and a transvaginal ultrasound. No acute findings were appreciated. Patient was treated for nausea, vomiting, pain. Patient was then seen again on the for nausea constipation. patient advised that she did improve after the visit on the , but started having significant abdominal pain yesterday. White blood cell count is normal. Glucose is elevated at 237. Creatinine is 1.2. Will administer IV fluids. 25 mcg of fentanyl is ordered to help with patient's abdominal pain. Ultrasound of the appendix and also ovaries ordered. Have consulted with Dr. Sams who agrees with work-up at this time. Pelvic ultrasound shows abnormal blood flow to the right ovary cannot rule out ovarian torsion. Dr. Linares, V rad radiologist, called and discussed findings with me. We will do CT abdomen and pelvis with contrast now. Will consult OB CT abdomen and pelvis shows a small amount of air in the bladder which the radiologist states could be iatrogenic related to recent catheterization or consider emphysematous cystitis. Patient urine today is not consistent with emphysematous cystitis. I spoke with CRACKING STILL OPERATOR regarding the pelvic ultrasound results and OB physician on-call states that he has little concern for ovarian torsion given that there is blood flow to the ovary and the ovary is not enlarged. He recommended pelvic exam and if patient has cervical motion tenderness treating her to cover pelvic inflammatory disease. Pelvic exam was done no discharge. Cervical os is closed. Patient does have significant cervical motion tenderness. Will treat to cover for pelvic inflammatory disease. Discharge patient to home. I discussed this patient with Dr. Perry who agrees that urine does not looks consistent with emphysematous cystitis. He agrees with work-up and plan for discharge. Lab Data : 05/18/22 19:07 05/18/22 19:07 Labs/Radiology: Radiology Impressions Appendix Ultrasound 05/18/22 19:58 IMPRESSION: Appendix not definitely visualized. No acute abnormality in the right lower quadrant however. CT scan of the abdomen and pelvis with contrast or MRI of the abdomen would be recommended if clinical concern for appendicitis persists. Pelvic/Transvag US 05/18/22 19:58 IMPRESSION: No focal abnormality in the right ovary. There is high resistance flow in the right ovary however, possible right ovarian torsion cannot be ruled out. ADDENDUM: 05/18/22 2256 THIS REPORT CONTAINS FINDINGS THAT MAY BE CRITICAL TO PATIENT CARE. The findings were verbally communicated via telephone conference with Riya Rodriguez at 10:49 PM CDT on 05/18/2022. The findings were acknowledged and understood. Abdomen/Pelvis CT 05/18/22 22:43 IMPRESSION: 1. Small amount of air in the bladder. This may be iatrogenic related to recent catheterization. If this is not the case, then emphysematous cystitis would be a consideration. Recommend clinical correlation. 2. Incidental/nonacute findings are listed in the report. Laboratory Results WBC 7.0 10^3/uL (4.0-10.0) 05/18/22 19:07 RBC 3.45 10^6/uL (4.1-5.3) L 05/18/22 19:07 Hgb 8.6 g/dL (11.5-15.3) L 05/18/22 19:07 Hct 29.0 % (37.0-47.0) L 05/18/22 19:07 MCV 84.1 fl (81-99) 05/18/22 19:07 MCH 24.9 pg (28.0-34.0) L 05/18/22 19:07 MCHC 29.7 g/dL (30.0-36.0) L 05/18/22 19:07 RDW 16.3 % (12.1-15.1) H 05/18/22 19:07 Plt Count 418 10^3/cmm (130-400) H 05/18/22 19:07 MPV 8.7 fL (7.4-10.4) 05/18/22 19:07 Neut % (Auto) 73.8 % 05/18/22 19:07 Lymph % (Auto) 16.9 % 05/18/22 19:07 [place] % (Auto) 6.8 % 05/18/22 19:07 Eos % (Auto) 1.8 % 05/18/22 19:07 Baso % (Auto) 0.4 % 05/18/22 19:07 Neut # (Auto) 5.19 10^3/uL (1.8-7.7) 05/18/22 19:07 Lymph # (Auto) 1.2 10^3/uL (0.8-4.8) 05/18/22 19:07 [place] # (Auto) 0.5 10^3/uL (0.2-0.9) 05/18/22 19:07 Eos # (Auto) 0.1 10^3/uL (0.0-0.8) 05/18/22 19:07 Baso # (Auto) 0.0 10^3/uL (0.0-0.1) 05/18/22 19:07 Nucleated RBC % (auto) 0 % 05/18/22 19:07 Nucleated RBCs # 0.0 /100WBC 05/18/22 19:07 Sodium 134 mmol/L (136-145) L 05/18/22 19:07 Potassium 3.4 mmol/L (3.5-5.1) L 05/18/22 19:07 Chloride 94 mmol/L (98-107) L 05/18/22 19:07 Carbon Dioxide 28 mmol/L (22-29) 05/18/22 19:07 Anion Gap 15.4 (5-19) 05/18/22 19:07 BUN 15 mg/dL (6-20) 05/18/22 19:07 Creatinine 1.2 mg/dL (0.5-0.9) H 05/18/22 19:07 GFR Calculation 48.8 mL/min (90-130) L 05/18/22 19:07 Glucose 237 mg/dL (65-115) H 05/18/22 19:07 Calculated Osmolality 287 mOsm/kg (285-295) 05/18/22 19:07 Calcium 9.4 mg/dL (8.5-10.5) 05/18/22 19:07 Total Bilirubin 0.2 mg/dL (0.15-1.2) 05/18/22 19:07 AST 18 U/L (0-32) 05/18/22 19:07 ALT 13 U/L (0-33) 05/18/22 19:07 Alkaline Phosphatase 120 U/L (35-105) H 05/18/22 19:07 Total Protein 7.3 g/dL (6.6-8.7) 05/18/22 19:07 Albumin 3.6 g/dL (3.5-5.2) 05/18/22 19:07 Globulin 3.7 g/dL (1.3-4.6) 05/18/22 19:07 Lipase 79 U/L (13-60) H 05/18/22 19:07 HCG, Qual Negative (Negative) 05/18/22 19: Urine Color Yellow (Yellow) 05/18/22 19:31 Urine Appearance Clear (CLEAR) 05/18/22 19:31 Urine pH 8.0 (5-7) A 05/18/22 19: Ur Specific [place] 1.020 (1.005-1.030) 05/18/22 19: Urine Protein 1+ (Negative) A 05/18/22 19: Urine Glucose (UA) 3+ (Normal) H 05/18/22 19:31 Urine Ketones Negative (Negative) 05/18/22: Urine Blood Negative (Negative) 05/18/22 19: Urine Nitrate Negative 05/18/22 19:31 Urine Bilirubin Negative (Negative) 05/18/22 19:31 Urine Urobilinogen 0.2 mg/dL (Negative) 05/18/22 19:31 Ur Leukocyte Esterase Negative (Negative) 05/18/22 19: Urine RBC 0-4 /hpf (0-2) H 05/18/22 19:31 Urine WBC 0-4 /hpf (0-5) H 05/18/22 19:31 Ur Squamous Epith Cells 0-4 /hpf (0-5) H 05/18/22 19:31 Amorphous Sediment Not Reportable 05/18/22 19:31 Urine Bacteria Trace /hpf (NONE) 05/18/22 19:31 Discharge Plan Discharge Patient Disposition: Home Clinical Impression: Pelvic pain, Abdominal pain Condition: Stable Prescriptions: New doxycycline hyclate 100 mg tablet 100 mg PO Q12H 14 Days Qty: 28 0RF metronidazole 500 mg tablet 500 mg PO Q12H 14 Days Qty: 28 0RF No Action Lantus Solostar U-100 Insulin 100 unit/mL (3 mL) insulin pen 40 unit SUBCUT BEDTIME 30 Days Qty: 15 2RF (DME) Comfort EZ Pen Scott 33 gauge x 1/4 needle See Rx Instructions .ROUTE .MEDSUPPLY Qty: 100 2RF Rx Instructions: As directed (DME) Blood Glucose Test Strip See Rx Instructions .Route Qty: 100 11RF Rx Instructions: Use with meter to test 3 times a day. atorvastatin 40 mg tablet 40 mg PO DAILY 30 Days Qty: 30 1RF ropinirole 1 mg tablet 1 mg PO BEDTIME 30 Days Qty: 30 1RF amlodipine 10 mg tablet 10 mg PO DAILY 30 Days Qty: 30 1RF docusate sodium [Colace] 100 mg capsule 100 mg PO BID 30 Days Qty: 60 1RF metoprolol succinate 25 mg tablet extended release 24 hr 50 mg PO DAILY 30 Days Qty: 60 1RF cyclobenzaprine 10 mg Tablet 10 mg PO BID PRN (Reason: Muscle Spasms) 30 Days Qty: 60 1RF insulin aspart U-100 [Novolog Flexpen U-100 Insulin] 100 unit/mL (3 mL) insulin pen 10 unit SUBCUT TID spironolactone 25 mg tablet 25 mg PO BID Reglan 10 mg tablet 10 mg PO Q6H PRN (Reason: nausea and vomiting) Qty: 20 0RF duloxetine 30 mg capsule,delayed release(DR/EC) 30 mg PO TID Qty: 90 0RF trazodone 50 mg tablet 50 mg PO BEDTIME doxepin 10 mg capsule 10 mg PO BEDTIME promethazine 25 mg tablet 25 mg PO Q6H PRN (Reason: Nausea) oxycodone 5 mg tablet 5 mg PO Q6H PRN (Reason: pain) Qty: 28 0RF Bactrim DS 800-160 mg tablet 1 tab PO BID Qty: 4 0RF gabapentin 100 mg capsule 100 mg PO Q8H Qty: 20 0RF Reglan 10 mg tablet 10 mg PO Q6H PRN (Reason: nausea and vomiting) Qty: 20 0RF Discharge Orders: Discharge ED (Routine); Ordered 05/19/22 Ordered By: Riya Connors Referrals: Anai Castellanos NP [Primary Care Provider] - Discharge Diet: Usual diet Discharge Activity: Resume usual activity Patient Instructions: Abdominal Pain (ED) Activity Restrictions/Additional Instructions: Take antibiotics as directed starting tomorrow morning. Be cautious with sun exposure as you could be more sun sensitive on doxycycline. Follow-up with your primary care provider next week for continued evaluation and monitoring. Return to the ER as needed for new or worsening symptoms. Coding Level of Care Code ED Chha for Chg Fwd Exam Detailed Documented by User: Pablito Perry DO 05/19/22 02:41 HPI - Abdominal Pain General: Chief Complaint: Abdominal Pain Stated Complaint: right side pain Time Seen by Provider: 05/18/22 19:19 PFSH ED PFSH: Medical History Acute hyponatremia Acute renal failure Anemia of chronic disease Back pain C. difficile diarrhea Chronic abdominal pain Chronic pain Chronic pain syndrome CKD (chronic kidney disease) stage 2, GFR 60-89 ml/min baseline Cr is around 1.0 Coronary artery disease hx of stenting Depression Diabetes mellitus type 1 diagnosed age 15, history of peripheral neuropathy, gastroparesis and nephropathy Diabetic foot ulcer s/p surgical intervention and eventual amputation Diabetic gastroparesis Diabetic ophthalmopathy Foot osteomyelitis, right ALEJANDRO (generalized anxiety disorder) Gastroparesis GERD (gastroesophageal reflux disease) High anion gap metabolic acidosis Hyperglycemia Hyperlipidemia Hypertension Hyponatremia Insomnia 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 Nausea & vomiting Non-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 Psychiatric care PTSD (post-traumatic stress disorder) Self-harming behavior Self-harming behavior Septic prepatellar bursitis of left knee Suicidal ideation Suicidal ideation Toe infection UTI (urinary tract infection) Surgical History Below-knee amputation of left lower extremity H/O esophagogastroduodenoscopy (12/31/20) Bile reflux gastritis, grade B esophagitis H/O exploratory laparotomy x 3 History of amputation of right forefoot Hx of cholecystectomy Previous section x 3 S/P coronary artery stent placement x 1 S/P percutaneous endoscopic gastrostomy (PEG) tube placement Family History Unknown Diabetes extensive, type II Other CHF (congestive heart failure) Social History Smoking and tobacco status: never smoked Quit status (tobacco): has quit using tobacco Former quit date comment: 15 yrs ago Alcohol intake: former Former alcohol use details: 15 yrs ago Household members: spouse Marital status: Sexually active: Yes (1, ) Course Vital Signs: Vital signs: Vital Signs Temperature 99.2 F 05/18/22 18:12 Pulse Rate 80 05/19/22 00:00 Respiratory Rate 16 05/19/22 00:00 Blood Pressure 143/79 05/19/22 00:00 Pulse Oximetry 97 05/19/22 00:00 Oxygen Delivery Me thod 05/19/22 00:00 MDM - Abdominal Pain Medical Decision Making The patient is a 42-year-old female with a history of diabetes previous gastroparesis previous cholecystectomy previous ex lap. Patient has been seen at least twice in the past 3 weeks for similar complaints. He was seen for right-sided abdominal pain and CVA tenderness. She had a work-up which included CT abdomen and a transvaginal ultrasound. No acute findings were appreciated. Patient was treated for nausea, vomiting, pain. Patient was then seen again on the for nausea constipation. patient advised that she did improve after the visit on the , but started having significant abdominal pain yesterday. White blood cell count is normal. Glucose is elevated at 237. Creatinine is 1.2. Will administer IV fluids. 25 mcg of fentanyl is ordered to help with patient's abdominal pain. Ultrasound of the appendix and also ovaries ordered. Have consulted with Dr. Sams who agrees with work-up at this time. Pelvic ultrasound shows abnormal blood flow to the right ovary cannot rule out ovarian torsion. Dr. Linares, V rad radiologist, called and discussed findings with me. We will do CT abdomen and pelvis with contrast now. Will consult OB CT abdomen and pelvis shows a small amount of air in the bladder which the radiologist states could be iatrogenic related to recent catheterization or consider emphysematous cystitis. Patient urine today is not consistent with emphysematous cystitis. I spoke with CRACKING STILL OPERATOR regarding the pelvic ultrasound results and OB physician on-call states that he has little concern for ovarian torsion given that there is blood flow to the ovary and the ovary is not enlarged. He recommended pelvic exam and if patient has cervical motion tenderness treating her to cover pelvic inflammatory disease. Pelvic exam was done no discharge. Cervical os is closed. Patient does have significant cervical motion tenderness. Will treat to cover for pelvic inflammatory disease. Discharge patient to home. I discussed this patient with Dr. Perry who agrees that urine does not looks consistent with emphysematous cystitis. He agrees with work-up and plan for discharge. This patient was originally seen by ARLIN Nieves.? I agree with her history, evaluation, and treatment. Lab Data : 05/18/22 19:07 05/18/22 19:07 Labs/Radiology: Radiology Impressions Appendix Ultrasound 05/18/22 19:58 IMPRESSION: Appendix not definitely visualized. No acute abnormality in the right lower quadrant however. CT scan of the abdomen and pelvis with contrast or MRI of the abdomen would be recommended if clinical concern for appendicitis persists. Pelvic/Transvag US 05/18/22 19:58 IMPRESSION: No focal abnormality in the right ovary. There is high resistance flow in the right ovary however, possible right ovarian torsion cannot be ruled out. ADDENDUM: 05/18/22 9418 THIS REPORT CONTAINS FINDINGS THAT MAY BE CRITICAL TO PATIENT CARE. The findings were verbally communicated via telephone conference with Riya Rodriguez at 10:49 PM CDT on 05/18/2022. The findings were acknowledged and understood. Abdomen/Pelvis CT 05/18/22 22:43 IMPRESSION: 1. Small amount of air in the bladder. This may be iatrogenic related to recent catheterization. If this is not the case, then emphysematous cystitis would be a consideration. Recommend clinical correlation. 2. Incidental/nonacute findings are listed in the report. Laboratory Results WBC 7.0 10^3/uL (4.0-10.0) 05/18/22 19:07 RBC 3.45 10^6/uL (4.1-5.3) L 05/18/22 19:07 Hgb 8.6 g/dL (11.5-15.3) L 05/18/22 19:07 Hct 29.0 % (37.0-47.0) L 05/18/22 19:07 MCV 84.1 fl (81-99) 05/18/22 19:07 MCH 24.9 pg (28.0-34.0) L 05/18/22 19:07 MCHC 29.7 g/dL (30.0-36.0) L 05/18/22 19:07 RDW 16.3 % (12.1-15.1) H 05/18/22 19:07 Plt Count 418 10^3/cmm (130-400) H 05/18/22 19:07 MPV 8.7 fL (7.4-10.4) 05/18/22 19:07 Neut % (Auto) 73.8 % 05/18/22 19:07 Lymph % (Auto) 16.9 % 05/18/22 19:07 [place] % (Auto) 6.8 % 05/18/22 19:07 Eos % (Auto) 1.8 % 05/18/22 19:07 Baso % (Auto) 0.4 % 05/18/22 19:07 Neut # (Auto) 5.19 10^3/uL (1.8-7.7) 05/18/22 19:07 Lymph # (Auto) 1.2 10^3/uL (0.8-4.8) 05/18/22 19:07 [place] # (Auto) 0.5 10^3/uL (0.2-0.9) 05/18/22 19:07 Eos # (Auto) 0.1 10^3/uL (0.0-0.8) 05/18/22 19:07 Baso # (Auto) 0.0 10^3/uL (0.0-0.1) 05/18/22 19:07 Nucleated RBC % (auto) 0 % 05/18/22 19:07 Nucleated RBCs # 0.0 /100WBC 05/18/22 19:07 Sodium 134 mmol/L (136-145) L 05/18/22 19:07 Potassium 3.4 mmol/L (3.5-5.1) L 05/18/22 19:07 Chloride 94 mmol/L (98-107) L 05/18/22 19:07 Carbon Dioxide 28 mmol/L (22-29) 05/18/22 19:07 Anion Gap 15.4 (5-19) 05/18/22 19:07 BUN 15 mg/dL (6-20) 05/18/22 19:07 Creatinine 1.2 mg/dL (0.5-0.9) H 05/18/22 19:07 GFR Calculation 48.8 mL/min (90-130) L 05/18/22 19:07 Glucose 237 mg/dL (65-115) H 05/18/22 19:07 Calculated Osmolality 287 mOsm/kg (285-295) 05/18/22 19:07 Calcium 9.4 mg/dL (8.5-10.5) 05/18/22 19:07 Total Bilirubin 0.2 mg/dL (0.15-1.2) 05/18/22 19:07 AST 18 U/L (0-32) 05/18/22 19:07 ALT 13 U/L (0-33) 05/18/22 19:07 Alkaline Phosphatase 120 U/L (35-105) H 05/18/22 19:07 Total Protein 7.3 g/dL (6.6-8.7) 05/18/22 19:07 Albumin 3.6 g/dL (3.5-5.2) 05/18/22 19:07 Globulin 3.7 g/dL (1.3-4.6) 05/18/22 19:07 Lipase 79 U/L (13-60) H 05/18/22 19:07 HCG, Qual Negative (Negative) 05/18/22 19:31 Urine Color Yellow (Yellow) 05/18/22 19:31 Urine Appearance Clear (CLEAR) 05/18/22 19:31 Urine pH 8.0 (5-7) A 05/18/22 19:31 Ur Specific [place] 1.020 (1.005-1.030) 05/18/22 19:31 Urine Protein 1+ (Negative) A 05/18/22 19:31 Urine Glucose (UA) 3+ (Normal) H 05/18/22 19:31 Urine Ketones Negative (Negative) 05/18/22 19:31 Urine Blood Negative (Negative) 05/18/22 19:31 Urine Nitrate Negative 05/18/22 19:31 Urine Bilirubin Negative (Negative) 05/18/22 19:31 Urine Urobilinogen 0.2 mg/dL (Negative) 05/18/22 19:31 Ur Leukocyte Esterase Negative (Negative) 05/18/22 19:31 Urine RBC 0-4 /hpf (0-2) H 05/18/22 19:31 Urine WBC 0-4 /hpf (0-5) H 05/18/22 19:31 Ur Squamous Epith Cells 0-4 /hpf (0-5) H 05/18/22 19:31 Amorphous Sediment Not Reportable 05/18/22 19:31 Urine Bacteria Trace /hpf (NONE) 05/18/22 19:31 Discharge Plan Discharge Patient Disposition: Home Clinical Impression: Pelvic pain, Abdominal pain Condition: Stable Prescriptions: New doxycycline hyclate 100 mg tablet 100 mg PO Q12H 14 Days Qty: 28 0RF metronidazole 500 mg tablet 500 mg PO Q12H 14 Days Qty: 28 0RF No Action Lantus Solostar U-100 Insulin 100 unit/mL (3 mL) insulin pen 40 unit SUBCUT BEDTIME 30 Days Qty: 15 2RF (DME) Comfort EZ Pen [place] 33 gauge x 1/4 needle See Rx Instructions .ROUTE .MEDSUPPLY Qty: 100 2RF Rx Instructions: As directed (DME) Blood Glucose Test Strip See Rx Instructions .Route Qty: 100 11RF Rx Instructions: Use with meter to test 3 times a day. atorvastatin 40 mg tablet 40 mg PO DAILY 30 Days Qty: 30 1RF ropinirole 1 mg tablet 1 mg PO BEDTIME 30 Days Qty: 30 1RF amlodipine 10 mg tablet 10 mg PO DAILY 30 Days Qty: 30 1RF docusate sodium [Colace] 100 mg capsule 100 mg PO BID 30 Days Qty: 60 1RF metoprolol succinate 25 mg tablet extended release 24 hr 50 mg PO DAILY 30 Days Qty: 60 1RF cyclobenzaprine 10 mg Tablet 10 mg PO BID PRN (Reason: Muscle Spasms) 30 Days Qty: 60 1RF insulin aspart U-100 [Novolog Flexpen U-100 Insulin] 100 unit/mL (3 mL) insulin pen 10 unit SUBCUT TID spironolactone 25 mg tablet 25 mg PO BID Reglan 10 mg tablet 10 mg PO Q6H PRN (Reason: nausea and vomiting) Qty: 20 0RF duloxetine 30 mg capsule,delayed release(DR/EC) 30 mg PO TID Qty: 90 0RF trazodone 50 mg tablet 50 mg PO BEDTIME doxepin 10 mg capsule 10 mg PO BEDTIME promethazine 25 mg tablet 25 mg PO Q6H PRN (Reason: Nausea) oxycodone 5 mg tablet 5 mg PO Q6H PRN (Reason: pain) Qty: 28 0RF Bactrim DS 800-160 mg tablet 1 tab PO BID Qty: 4 0RF gabapentin 100 mg capsule 100 mg PO Q8H Qty: 20 0RF Reglan 10 mg tablet 10 mg PO Q6H PRN (Reason: nausea and vomiting) Qty: 20 0RF Discharge Orders: Discharge ED (Routine); Ordered 05/19/22 Ordered By: Riya Connors Referrals: Anai Castellanos NP [Primary Care Provider] - Discharge Diet: Usual diet Discharge Activity: Resume usual activity Patient Instructions: Abdominal Pain (ED) Activity Restrictions/Additional Instructions: Take antibiotics as directed starting tomorrow morning. Be cautious with sun exposure as you could be more sun sensitive on doxycycline. Follow-up with your primary care provider next week for continued evaluation and monitoring. Return to the ER as needed for new or worsening symptoms. Coding Level of Care Code ED Chha for Kim Fwd Exam Detailed
[2022-05-18 21:27] VITALS: RESP 22
[2022-05-18] MEDS: fentaNYL 50 mcg/mL INJ 2mL 25 MCG IVP (21:27)
[2022-05-18] MEDS: ondansetron 2 mg/ML SDV 2 mL 4 MG IVP (21:27)
[2022-05-18] MEDS: sodium chloride 0.9% 1,000 ML 999 ML IV (21:30)
[2022-05-18] MEDS: fentaNYL 50 mcg/mL INJ 2mL IVP (22:19)
--- NOTE | 2022-05-18 22:43 | CTR_ITS ---
PROCEDURE INFORMATION: Exam: CT Abdomen And Pelvis With Contrast Exam date and time: 05/18/2022 11:11 PM Age: 42 years old Clinical indication: Abdominal pain; Prior surgery; Additional info: Rlq abdominal pain TECHNIQUE: Imaging protocol: Computed tomography of the abdomen and pelvis with contrast. Sagittal and coronal reformatted images were created and reviewed. Radiation optimization: All CT scans at this facility use at least one of these dose optimization techniques: automated exposure control; mA and/or kV adjustment per patient size (includes targeted exams where dose is matched to clinical indication); or iterative reconstruction. Contrast material: OMNIPAQUE 350; Contrast volume: 80 ml; Contrast route: INTRAVENOUS (IV); COMPARISON: CT abdomen pelvis w con* [id number] 05/02/2022 2:02 PM RADIATION DOSE METRICS: Total DLP (mGy-cm): 593.08 FINDINGS: Lungs: Dependent atelectasis in the right lung. Pleural spaces: No pleural effusion. Heart: Visualized heart is normal in size. Mild atherosclerotic calcification in the visualized coronary arteries. Liver: The liver is unremarkable. Gallbladder and bile ducts: Stable findings consistent with a previous cholecystectomy. No biliary ductal dilatation. Pancreas: The pancreas is unremarkable. No pancreatic ductal dilatation. Spleen: The spleen is unremarkable. Adrenal glands: The right and left adrenal glands are unremarkable. Kidneys and ureters: The right and left kidneys are unremarkable. The right and left ureters are unremarkable. Stomach and bowel: No obstruction. No mucosal thickening. Appendix: The appendix is visualized and is unremarkable. No findings to suggest acute appendicitis. Intraperitoneal space: No free intraperitoneal air. No ascites. No loculated fluid collections to suggest an abscess. Vasculature: Mild atherosclerotic changes in the visualized arteries. No evidence for aortic aneurysm or aortic dissection. Hepatic veins, portal veins, splenic vein, and SMV are patent. Lymph nodes: No lymphadenopathy. Urinary bladder: Small amount of air in the bladder. Reproductive: The uterus, right ovary, and left ovary are unremarkable. Bones/joints: Degenerative changes in the spine and hips. Soft tissues: Stable dependent edema in the posterior subcutaneous tissues. CT/CT abdomen pelvis w con* [id number] IMPRESSION: 1. Small amount of air in the bladder. This may be iatrogenic related to recent catheterization. If this is not the case, then emphysematous cystitis would be a consideration. Recommend clinical correlation. 2. Incidental/nonacute findings are listed in the report.
[2022-05-18 22:52] VITALS: BP 158/77; PULSE 76; RESP 16; O2SAT 97
--- NOTE | 2022-05-18 22:54 | PC.NURSE ---
Pt resting quietly in bed. States pain meds are helping. No needs at this time.
--- NOTE | 2022-05-18 23:08 | PC.NURSE ---
biometric technician to desk. States pt is requesting more pain meds before CT. This RN to bedside. Pt is very drowsy. States she is ok, but thought someone had told her they ordered more. I spoke with provider. Relayed information including pt being drowsy. In agreement that pt should get CT before receiving more meds. This information was given to pt and pt understood. Agreeable to go to CT.
[2022-05-18] MEDS: iohexol 350 mg/mL 100 mL Btl IV (23:23)
[2022-05-19] VITALS: BP 143/79; PULSE 80; RESP 16; O2SAT 97
[2022-05-19] MEDS: metroNIDAZOLE 500 MG Tablet PO (01:16)
[2022-05-19] MEDS: doxycycline 100 mg Tablet PO (01:16)
== END 2022-05-19 01:43 | disposition home or self-care (01) ==
PROVIDERS: Emergency Medicine; Emergency Provider Nurse Practitioner Family; PCP Nurse Practitioner Family
DX: R10.2 Pelvic and perineal pain (principal); R10.9 Unspecified abdominal pain; I12.9 Hypertensive chronic kidney disease with stage 1 through stage 4 chronic kidney disease, or unspecified chronic kidney disease; N18.2 Chronic kidney disease, stage 2 (mild); E10.43 Type 1 diabetes mellitus with diabetic autonomic (poly)neuropathy; K31.84 Gastroparesis; E10.22 Type 1 diabetes mellitus with diabetic chronic kidney disease; E78.5 Hyperlipidemia, unspecified; I25.10 Atherosclerotic heart disease of native coronary artery without angina pectoris; Z90.49 Acquired absence of other specified parts of digestive tract; Z95.5 Presence of coronary angioplasty implant and graft
CPT/HCPCS: 74177; 76705; 76830; 76856; 80053; 81001; 81025; 83690; 85025; 96361; 96374; 96375; 96376; 99285; J0696; J2405; J3010; J7030; Q9967

== ENCOUNTER 2022-05-21 10:52 | Emergency (ER) | payer MEDICAID, SELFPAY ==
[2022-05-21 11:07] VITALS: BP 161/76; PULSE 101; RESP 16; TEMP 36.4; O2SAT 100; BMI 23.6
[2022-05-21 13:59] LABS: Bilirubin Urine Negative (Negative); Blood Urine Negative (Negative); Glucose Urine UA 1+ (Normal); Ketones Urine Negative (Negative); Leukocyte Esterase Urine Negative (Negative); Nitrate Urine Negative; Protein Urine 2+ (Negative); Specific Gravity, Urine 1.015 (1.005-1.030); Urine Appearance Clear (CLEAR); Urine Color Yellow (Yellow); Urobilinogen Urine 0.2 mg/dL (Negative)
[2022-05-21 14:01] LABS: Add Urine Microscopic? YES
[2022-05-21 14:11] LABS: Add Urine Culture? No; Bacteria Urine TRACE /hpf; WBC Urine RARE /hpf (0-5)
--- NOTE | 2022-05-21 14:47 | W.ED.ABDPA2 ---
HPI - Abdominal Pain General: Chief Complaint: Abdominal Pain Stated Complaint: right side pain Time Seen by Provider: 05/21/22 13:46 Source: patient Mode of arrival: ambulatory History of Present Illness: 42-year-old female presents emergency room with abdominal pain. She is chronically and here for abdominal pain. This year so far she has had 6 CTs in 2020 she had 10 and she had 9 in 2019. Making a total of 25 CTs of her abdomen in the last 2-1/2 years none of which has showed any significant pathology. She is also had 16 more CTs of her head and spine and extremities. Making for a total of 41 CTs in the last 28 to 29 months. She presents again today complaining of right-sided abdominal pain. She was seen 3 days ago and had a work-up that included [address] all of which was negative. Urine at that time was negative as well. She was hospitalized last month with septic prepatellar bursitis left knee. She previously has had a left below the knee amputation. She does have a history of diabetic gastroparesis as well. At the time of discharge patient was scheduled to have 2 weeks of IV ceftriaxone daily. Reviewed notes does not look like he had much follow-up after this. Today she denies any dysuria urgency or frequency she is having recurrent nausea and vomiting. MD elicited complaint: abdominal pain Onset (ago): day(s) Pain Consistency: constant Location: Epigastric, RUQ and R flank Severity: severe Quality: cramping Radiation: none Migration to: no migration Exacerbating factors: nothing Relieving factors: nothing Associated Symptoms: Reports GI cramping and poor appetite; Denies anorexia, belching, bloating, change in bowel habits, change in stool character, chills, coffee ground emesis, constipation, diarrhea, dyspepsia, dysuria, excessive flatus, fever(s), heartburn, hematochezia, hematuria, hematemesis, fecal incontinence, loose stools, melena, nausea, syncope and vomiting Review of Systems Const: Reports: fatigue and malaise; Denies: fever(s) or chills ENMT: Denies: throat pain, ear or mastoid pain, nasal discharge or nasal congestion Card: Denies: chest pain, palpitations, irregular heart rhythm or syncope Resp: Denies: dyspnea, productive cough or non-productive cough GI: Reports: abdominal pain and GI cramping; Denies: nausea, vomiting, hematemesis, coffee ground emesis, heartburn, diarrhea, constipation, bloating, belching, excessive flatus, fecal incontinence, change in bowel habits, change in stool character, hematochezia or melena : Denies: dysuria or hematuria Skin/Breast: Denies: rash or pruritus PFSH ED PFSH: Medical History Acute hyponatremia Acute renal failure Anemia of chronic disease Back pain C. difficile diarrhea Chronic abdominal pain Chronic pain Chronic pain syndrome CKD (chronic kidney disease) stage 2, GFR 60-89 ml/min baseline Cr is around 1.0 Coronary artery disease hx of stenting Depression Diabetes mellitus type 1 diagnosed age 15, history of peripheral neuropathy, gastroparesis and nephropathy Diabetic foot ulcer s/p surgical intervention and eventual amputation Diabetic gastroparesis Diabetic ophthalmopathy Foot osteomyelitis, right ALEJANDRO (generalized anxiety disorder) Gastroparesis GERD (gastroesophageal reflux disease) High anion gap metabolic acidosis Hyperglycemia Hyperlipidemia Hypertension Hyponatremia Insomnia 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 Nausea & vomiting Non-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 Psychiatric care PTSD (post-traumatic stress disorder) Self-harming behavior Self-harming behavior Septic prepatellar bursitis of left knee Suicidal ideation Suicidal ideation Toe infection UTI (urinary tract infection) Surgical History Below-knee amputation of left lower extremity H/O esophagogastroduodenoscopy (12/31/20) Bile reflux gastritis, grade B esophagitis H/O exploratory laparotomy x 3 History of amputation of right forefoot Hx of cholecystectomy Previous section x 3 S/P coronary artery stent placement x 1 S/P percutaneous endoscopic gastrostomy (PEG) tube placement Family History Unknown Diabetes extensive, type II Other CHF (congestive heart failure) Social History Smoking and tobacco status: never smoked Quit status (tobacco): has quit using tobacco Former quit date comment: 15 yrs ago Alcohol intake: former Former alcohol use details: 15 yrs ago Household members: spouse Marital status: Sexually active: Yes (1, ) Female Reproductive History: Spontaneous abortions: No Physical Exam Const: GENERAL APPEARANCE: cooperative and comfortable ORIENTATION/CONSCIOUSNESS: Yes awake, Yes oriented to person, Yes oriented to place and Yes oriented to time HENMT: COMMON NORMALS: normocephalic, atraumatic and hearing grossly normal bilaterally HEAD & SCALP: normocephalic and atraumatic Resp: COMMON NORMALS: normal respiratory effort, No retractions, No use of accessory muscles and clear to auscultation bilaterally AUSCULTATION: clear to auscultation bilaterally Cardio: COMMON NORMALS: regular rate, regular rhythm and No murmurs present (Cardio) RATE: regular rate RHYTHM: regular rhythm GI: COMMON NORMALS: Soft to palpation and No hepatosplenomegaly present AUSCULTATION: Yes normoactive bowel sounds PALPATION: Yes Soft to palpation, No Tenderness to palpation present (GI), No Guarding due to palpation present (GI) and Yes No hepatosplenomegaly present Extremity: COMMON NORMALS: normal to inspection, capillary refill normal, no clubbing, cyanosis or edema, no calf tenderness and no pedal edema Neuro: SENSORIUM/ORIENTATION: Yes oriented to person, Yes oriented to place and Yes oriented to time Skin: COMMON NORMALS: no rashes or lesions noted GENERAL SKIN EXAM: no rashes or lesions noted Course Vital Signs: Vital signs: Vital Signs Temperature 97.6 F 05/21/22 11:07 Pulse Rate 101 H 05/21/22 11:07 Respiratory Rate 16 05/21/22 11:07 Blood Pressure 161/76 05/21/22 11:07 Pulse Oximetry 100 05/21/22 11:07 Oxygen Delivery Me thod 05/21/22 11:07 MDM - Abdominal Pain Medical Decision Making Chronic abdominal pain. Did do a Hemoccult which was negative. Hemoglobin is decreased. This does need to be rechecked in the next couple of days. Her chronic abdominal pain is unchanged from her previous presentation does not she has had significant advanced imaging with no's findings despite all of the CTs of her abdomen that she has had. Most recent visit also included pelvic ultrasound and ultrasound of her appendix all of which was negative. We will discharge patient home have her follow-up with a primary care doctor recheck hemoglobin within the week add consider referral to GI or pain clinic. Medical Records I reviewed the patient's medical records. Lab Data I reviewed the patient's lab results. : 05/21/22 15:56 05/21/22 15:56 Labs/Radiology: Laboratory Results WBC 6.3 10^3/uL (4.0-10.0) 05/21/22 15:56 RBC 3.26 10^6/uL (4.1-5.3) L 05/21/22 15:56 Hgb 8.1 g/dL (11.5-15.3) L 05/21/22 15:56 Hct 26.2 % (37.0-47.0) L 05/21/22 15:56 MCV 80.4 fl (81-99) L 05/21/22 15:56 MCH 24.8 pg (28.0-34.0) L 05/21/22 15:56 MCHC 30.9 g/dL (30.0-36.0) 05/21/22 15:56 RDW 16.0 % (12.1-15.1) H 05/21/22 15:56 Plt Count 436 10^3/cmm (130-400) H 05/21/22 15:56 MPV 8.9 fL (7.4-10.4) 05/21/22 15:56 Neut % (Auto) 67.9 % 05/21/22 15:56 Lymph % (Auto) 22.7 % 05/21/22 15:56 [place] % (Auto) 7.6 % 05/21/22 15:56 Eos % (Auto) 1.3 % 05/21/22 15:56 Baso % (Auto) 0.3 % 05/21/22 15:56 Neut # (Auto) 4.31 10^3/uL (1.8-7.7) 05/21/22 15:56 Lymph # (Auto) 1.4 10^3/uL (0.8-4.8) 05/21/22 15:56 [place] # (Auto) 0.5 10^3/uL (0.2-0.9) 05/21/22 15:56 Eos # (Auto) 0.1 10^3/uL (0.0-0.8) 05/21/22 15:56 Baso # (Auto) 0.0 10^3/uL (0.0-0.1) 05/21/22 15:56 Nucleated RBC % (auto) 0 % 05/21/22 15:56 Nucleated RBCs # 0.0 /100WBC 05/21/22 15:56 Sodium 132 mmol/L (136-145) L 05/21/22 15:56 Potassium 3.3 mmol/L (3.5-5.1) L 05/21/22 15:56 Chloride 100 mmol/L (98-107) 05/21/22 15:56 Carbon Dioxide 23 mmol/L (22-29) 05/21/22 15:56 Anion Gap 12.3 (5-19) 05/21/22 15:56 BUN 14 mg/dL (6-20) 05/21/22 15:56 Creatinine 1.0 mg/dL (0.5-0.9) H 05/21/22 15:56 GFR Calculation 60.2 mL/min (90-130) L 05/21/22 15:56 Glucose 147 mg/dL (65-115) H 05/21/22 15:56 Calculated Osmolality 277 mOsm/kg (285-295) L 05/21/22 15:56 Calcium 8.9 mg/dL (8.5-10.5) 05/21/22 15:56 Total Bilirubin 0.2 mg/dL (0.15-1.2) 05/21/22 15:56 AST 15 U/L (0-32) 05/21/22 15:56 ALT 12 U/L (0-33) 05/21/22 15:56 Alkaline Phosphatase 119 U/L (35-105) H 05/21/22 15:56 Total Protein 7.2 g/dL (6.6-8.7) 05/21/22 15:56 Albumin 3.7 g/dL (3.5-5.2) 05/21/22 15:56 Globulin 3.5 g/dL (1.3-4.6) 05/21/22 15:56 Lipase 51 U/L (13-60) 05/21/22 15:56 Urine Color Yellow (Yellow) 05/21/22 13:45 Urine Appearance Clear (CLEAR) 05/21/22 13:45 Urine pH 7.0 (5-7) 05/21/22 13:45 Ur Specific [place] 1.015 (1.005-1.030) 05/21/22 13:45 Urine Protein 2+ (Negative) A 05/21/22 13:45 Urine Glucose (UA) 1+ (Normal) H 05/21/22 13:45 Urine Ketones Negative (Negative) 05/21/22 13:45 Urine Blood Negative (Negative) 05/21/22 13:45 Urine Nitrate Negative 05/21/22 13:45 Urine Bilirubin Negative (Negative) 05/21/22 13:45 Urine Urobilinogen 0.2 mg/dL (Negative) 05/21/22 13:45 Ur Leukocyte Esterase Negative (Negative) 05/21/22 13:45 Urine RBC None /hpf (0-2) 05/21/22 13:45 Urine WBC Rare /hpf (0-5) 05/21/22 13:45 Ur Squamous Epith Cells 5-10 /hpf (0-5) H 05/21/22 13:45 Amorphous Sediment Not Reportable 05/21/22 13:45 Urine Bacteria Trace /hpf (NONE) 05/21/22 13:45 Discharge Plan Discharge Patient Disposition: Home Clinical Impression: Chronic abdominal pain, Anemia Condition: Stable Prescriptions: No Action Lantus Solostar U-100 Insulin 100 unit/mL (3 mL) insulin pen 40 unit SUBCUT BEDTIME 30 Days Qty: 15 2RF (DME) Comfort EZ Pen [place] 33 gauge x 1/4 needle See Rx Instructions .ROUTE .MEDSUPPLY Qty: 100 2RF Rx Instructions: As directed (DME) Blood Glucose Test Strip See Rx Instructions .Route Qty: 100 11RF Rx Instructions: Use with meter to test 3 times a day. atorvastatin 40 mg tablet 40 mg PO DAILY 30 Days Qty: 30 1RF ropinirole 1 mg tablet 1 mg PO BEDTIME 30 Days Qty: 30 1RF amlodipine 10 mg tablet 10 mg PO DAILY 30 Days Qty: 30 1RF docusate sodium [Colace] 100 mg capsule 100 mg PO BID 30 Days Qty: 60 1RF metoprolol succinate 25 mg tablet extended release 24 hr 50 mg PO DAILY 30 Days Qty: 60 1RF cyclobenzaprine 10 mg Tablet 10 mg PO BID PRN (Reason: Muscle Spasms) 30 Days Qty: 60 1RF insulin aspart U-100 [Novolog Flexpen U-100 Insulin] 100 unit/mL (3 mL) insulin pen 10 unit SUBCUT TID spironolactone 25 mg tablet 25 mg PO BID Reglan 10 mg tablet 10 mg PO Q6H PRN (Reason: nausea and vomiting) Qty: 20 0RF doxycycline hyclate 100 mg tablet 100 mg PO Q12H 14 Days Qty: 28 0RF metronidazole 500 mg tablet 500 mg PO Q12H 14 Days Qty: 28 0RF duloxetine 30 mg capsule,delayed release(DR/EC) 30 mg PO TID Qty: 90 0RF trazodone 50 mg tablet 50 mg PO BEDTIME doxepin 10 mg capsule 10 mg PO BEDTIME promethazine 25 mg tablet 25 mg PO Q6H PRN (Reason: Nausea) oxycodone 5 mg tablet 5 mg PO Q6H PRN (Reason: pain) Qty: 28 0RF Bactrim DS 800-160 mg tablet 1 tab PO BID Qty: 4 0RF gabapentin 100 mg capsule 100 mg PO Q8H Qty: 20 0RF Reglan 10 mg tablet 10 mg PO Q6H PRN (Reason: nausea and vomiting) Qty: 20 0RF Discharge Orders: Discharge ED (Routine); Ordered 05/21/22 Ordered By: Adama Ceballos Referrals: Anai Castellanos NP [Primary Care Provider] - Discharge Diet: Usual diet Discharge Activity: Resume usual activity Patient Instructions: Abdominal Pain (ED), Opioid Safety, Pain Management Activity Restrictions/Additional Instructions: Follow-up with your primary care doctor for referral to the pain clinic. Also have your hemoglobin repeated in 2 to 3 days. Coding Level of Care Code ED District Fire Chief for Chg Fwd Exam Detailed
[2022-05-21 16:02] LABS: Basophils % 0.3 %; Eosinophils # 0.1 10^3/uL (0.0-0.8); Eosinophils % 1.3 %; Hematocrit 26.2 % (37.0-47.0); Hemoglobin 8.1 g/dL (11.5-15.3); Lymphocytes # 1.4 10^3/uL (0.8-4.8); Lymphocytes % 22.7 %; Mean Corpuscular HGB Conc 30.9 g/dL (30.0-36.0); Mean Corpuscular Hemoglobin 24.8 pg (28.0-34.0); Mean Corpuscular Volume 80.4 fl (81-99); Mean Platelet Volume 8.9 fL (7.4-10.4); Monocytes # 0.5 10^3/uL (0.2-0.9); Monocytes % 7.6 %; Neutrophils # 4.31 10^3/uL (1.8-7.7); Neutrophils % 67.9 %; Nucleated Red Blood Cells % 0 %; Platelet Count 436 10^3/cmm (130-400); Red Blood Count 3.26 10^6/uL (4.1-5.3); White Blood Count 6.3 10^3/uL (4.0-10.0)
[2022-05-21] MEDS: ketorolac 30 mg/mL INJ IVP (16:03)
[2022-05-21] MEDS: haloperidol inj 5 mg/mL INJ 1 mL 2 MG IM (16:03)
[2022-05-21 16:24] LABS: Alanine Aminotransferase 12 U/L (0-33); Albumin Level 3.7 g/dL (3.5-5.2); Alkaline Phosphatase 119 U/L (35-105); Anion Gap 12.3 (5-19); Aspartate Amino Transferase 15 U/L (0-32); Blood Urea Nitrogen 14 mg/dL (6-20); Calcium 8.9 mg/dL (8.5-10.5); Carbon Dioxide 23 mmol/L (22-29); Chloride 100 mmol/L (98-107); Globulin 3.5 g/dL (1.3-4.6); Glomerular Filtration Rate 60.2 mL/min (90-130); Glucose 147 mg/dL (65-115); Lipase 51 U/L (13-60); Osmolality Calculated 277 mOsm/kg (285-295); Potassium 3.3 mmol/L (3.5-5.1); Sodium 132 mmol/L (136-145); Total Bilirubin 0.2 mg/dL (0.15-1.2); Total Protein 7.2 g/dL (6.6-8.7)
== END 2022-05-21 16:32 | disposition home or self-care (01) ==
PROVIDERS: Emergency Provider Family Medicine; PCP Nurse Practitioner Family
DX: G89.29 Other chronic pain (principal); R10.11 Right upper quadrant pain; R10.13 Epigastric pain; I12.9 Hypertensive chronic kidney disease with stage 1 through stage 4 chronic kidney disease, or unspecified chronic kidney disease; N18.2 Chronic kidney disease, stage 2 (mild); E10.22 Type 1 diabetes mellitus with diabetic chronic kidney disease; I25.10 Atherosclerotic heart disease of native coronary artery without angina pectoris; E78.5 Hyperlipidemia, unspecified; D64.9 Anemia, unspecified; Z87.891 Personal history of nicotine dependence; Z95.5 Presence of coronary angioplasty implant and graft
CPT/HCPCS: 80053; 81001; 83690; 85025; 96374; 99284; J1630; J1885

== ENCOUNTER 2022-05-23 19:29 | Emergency (ER) | payer MEDICAID, SELFPAY ==
[2022-05-23 19:47] VITALS: BP 179/85; PULSE 94; RESP 22; TEMP 36.6; O2SAT 100; BMI 23.8
--- NOTE | 2022-05-23 20:07 | ED_ITS ---
HPI - Back Pain/Injury General: Chief Complaint: Back Pain/Injury Stated Complaint: back pain Time Seen by Provider: 05/23/22 20:02 History of Present Illness: 42-year-old female comes in today with complaints of low back pain. Patient has a history of diabetes mellitus type 1 with p eripheral vascular disease. Patient denies any fever or nausea or vomiting. Patient appears in mild to moderate pain. Patient has been seen several times in the ER over the past 2 to 3 weeks for similar complaints. Review of the record noted that patient had several imaging procedures of her spine, and abdomen pelvis. Review of these records noted that patient had some intervertebral disc disease without any other signs of acute or chronic abnormality. Patient reports use of Tylenol has not been helpful for her pain. Patient is on gabapentin for neuropathy. Associated symptoms: Deny fever(s) Review of Systems General: Reports: 10 or more systems reviewed and unremarkable except in HPI and below Const: Denies: fever(s) Musc: Reports: back pain PFSH ED PFSH: Medical History Acute hyponatremia Acute renal failure Anemia of chronic disease Back pain C. difficile diarrhea Chronic abdominal pain Chronic pain Chronic pain syndrome CKD (chronic kidney disease) stage 2, GFR 60-89 ml/min baseline Cr is around 1.0 Coronary artery disease hx of stenting Depression Diabetes mellitus type 1 diagnosed age 15, history of peripheral neuropathy, gastroparesis and nephropathy Diabetic foot ulcer s/p surgical intervention and eventual amputation Diabetic gastroparesis Diabetic ophthalmopathy Foot osteomyelitis, right ALEJANDRO (generalized anxiety disorder) Gastroparesis GERD (gastroesophageal reflux disease) High anion gap metabolic acidosis Hyperglycemia Hyperlipidemia Hypertension Hyponatremia Insomnia 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 Nausea & vomiting Non-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 Psychiatric care PTSD (post-traumatic stress disorder) Self-harming behavior Self-harming behavior Septic prepatellar bursitis of left knee Suicidal ideation Suicidal ideation Toe infection UTI (urinary tract infection) Surgical History Below-knee amputation of left lower extremity H/O esophagogastroduodenoscopy (12/31/20) Bile reflux gastritis, grade B esophagitis H/O exploratory laparotomy x 3 History of amputation of right forefoot Hx of cholecystectomy Previous section x 3 S/P coronary artery stent placement x 1 S/P percutaneous endoscopic gastrostomy (PEG) tube placement Family History Unknown Diabetes extensive, type II Other CHF (congestive heart failure) Social History Smoking and tobacco status: never smoked Quit status (tobacco): has quit using tobacco Former quit date comment: 15 yrs ago Alcohol intake: former Former alcohol use details: 15 yrs ago Household members: spouse Marital status: Sexually active: Yes (1, ) Female Reproductive History: Spontaneous abortions: No Physical Exam Const: COMMON NORMALS: alert HENMT: COMMON NORMALS: normocephalic HEAD & SCALP: normocephalic Neck/C-Spine: COMMON NORMALS: full ROM Resp: COMMON NORMALS: normal respiratory effort Cardio: COMMON NORMALS: regular rate RATE: regular rate Back/Pelvis: LUMBAR SPINE/LOWER BACK: Yes lumbar spinal tenderness Lumbar spinal tenderness location: L5 Extremity: NARRATIVE EXTREMITY EXAM: Left lower leg amputation of foot, amputation of toes on the right foot. Neuro: SENSORIUM/ORIENTATION: Yes alert Course Vital Signs: Vital signs: Vital Signs Temperature 97.8 F 05/23/22 19:47 Pulse Rate 94 05/23/22 19:47 Respiratory Rate 22 H 05/23/22 19:47 Blood Pressure 179/85 05/23/22 19:47 Pulse Oximetry 100 05/23/22 19:47 MDM - Back Pain/Injury Medical Decision Making Patient comes in today with exacerbation of chronic low back pain. On exam patient has tenderness in the region of the L5 midline spine. Vital signs are unremarkable except for some elevation of blood pressure at 179 systolic. Differential diagnosis includes but not limited to intervertebral disc disease, facet arthropathy, neuralgia, malingering. Reviewed previous records of recent imaging which noted some intervertebral disc disease. No signs of serious illness or injury was noted. Patient was treated for her pain with a tablet of hydrocodone and orphenadrine. Patient was recommended to follow-up with primary care regarding pain management. Patient stated understanding agreed to plan. Discharge Plan Discharge Patient Disposition: Home Clinical Impression: Low back pain Qualifiers: Chronicity: unspecified Back pain laterality: midline Sciatica presence: without sciatica Qualified Code(s): M54.50 - Low back pain, unspecified Condition: Stable Prescriptions: New hydrocodone-acetaminophen 5-325 mg tablet 1 tab PO Q8H PRN (Reason: pain, severe) Qty: 9 0RF No Action Lantus Solostar U-100 Insulin 100 unit/mL (3 mL) insulin pen 40 unit SUBCUT BEDTIME 30 Days Qty: 15 2RF (DME) Comfort EZ Pen [place] 33 gauge x 1/4 needle See Rx Instructions .ROUTE .MEDSUPPLY Qty: 100 2RF Rx Instructions: As directed (DME) Blood Glucose Test Strip See Rx Instructions .Route Qty: 100 11RF Rx Instructions: Use with meter to test 3 times a day. atorvastatin 40 mg tablet 40 mg PO DAILY 30 Days Qty: 30 1RF ropinirole 1 mg tablet 1 mg PO BEDTIME 30 Days Qty: 30 1RF amlodipine 10 mg tablet 10 mg PO DAILY 30 Days Qty: 30 1RF docusate sodium [Colace] 100 mg capsule 100 mg PO BID 30 Days Qty: 60 1RF metoprolol succinate 25 mg tablet extended release 24 hr 50 mg PO DAILY 30 Days Qty: 60 1RF cyclobenzaprine 10 mg Tablet 10 mg PO BID PRN (Reason: Muscle Spasms) 30 Days Qty: 60 1RF insulin aspart U-100 [Novolog Flexpen U-100 Insulin] 100 unit/mL (3 mL) insulin pen 10 unit SUBCUT TID spironolactone 25 mg tablet 25 mg PO BID Reglan 10 mg tablet 10 mg PO Q6H PRN (Reason: nausea and vomiting) Qty: 20 0RF doxycycline hyclate 100 mg tablet 100 mg PO Q12H 14 Days Qty: 28 0RF metronidazole 500 mg tablet 500 mg PO Q12H 14 Days Qty: 28 0RF duloxetine 30 mg capsule,delayed release(DR/EC) 30 mg PO TID Qty: 90 0RF trazodone 50 mg tablet 50 mg PO BEDTIME doxepin 10 mg capsule 10 mg PO BEDTIME promethazine 25 mg tablet 25 mg PO Q6H PRN (Reason: Nausea) oxycodone 5 mg tablet 5 mg PO Q6H PRN (Reason: pain) Qty: 28 0RF Bactrim DS 800-160 mg tablet 1 tab PO BID Qty: 4 0RF gabapentin 100 mg capsule 100 mg PO Q8H Qty: 20 0RF Reglan 10 mg tablet 10 mg PO Q6H PRN (Reason: nausea and vomiting) Qty: 20 0RF Discharge Orders: Discharge ED (Routine); Ordered 05/23/22 Ordered By: Idris Louise Discharge Diet: Usual diet Discharge Activity: Increase activity as tolerated Patient Instructions: Back Pain (ED), Opioid Safety Activity Restrictions/Additional Instructions: Follow-up with primary care for evaluation and treatment for chronic pain. You may need referral to a specialist for management of chronic pain. Return to ER for new concerns such as high fever greater than 100.4, blood in vomit or stool, or worsening symptoms. Coding Level of Care Code ED Instructor Programmable Controllers for Kim Mitchell
[2022-05-23] MEDS: orphenadrine 30 mg/mL Inj 2 mL 60 MG IM (20:21)
[2022-05-23] MEDS: HYDROcodone-acetaminophen 10-325 mg Tablet 1 TAB PO (20:21)
== END 2022-05-23 20:46 | disposition home or self-care (01) ==
PROVIDERS: Emergency Provider Nurse Practitioner Family
DX: M54.50 Low back pain, unspecified (principal); Z79.4 Long term (current) use of insulin; E10.22 Type 1 diabetes mellitus with diabetic chronic kidney disease; I12.9 Hypertensive chronic kidney disease with stage 1 through stage 4 chronic kidney disease, or unspecified chronic kidney disease; N18.2 Chronic kidney disease, stage 2 (mild); I25.10 Atherosclerotic heart disease of native coronary artery without angina pectoris; E78.5 Hyperlipidemia, unspecified; Z89.512 Acquired absence of left leg below knee; Z87.891 Personal history of nicotine dependence
CPT/HCPCS: 96372; 99284; J2360

== ENCOUNTER 2022-05-26 11:24 | Emergency (ER) | payer MEDICAID, SELFPAY ==
--- NOTE | 2022-05-26 11:26 | ED_ITS ---
HPI - Chest Pain General: Chief Complaint: Chest Pain Stated Complaint: CHEST PAIN Time Seen by Provider: 05/26/22 11:25 Source: patient Mode of arrival: ambulatory Limitations: no limitations History of Present Illness: 42-year-old female who presents to the emergency room with complaint of chest discomfort. She has right-sided chest pain that began when she woke up this morning around 7 AM. Is worse with movement worse with palpation and deep inspiration. Very sharp pain she does state it radiates into her right arm. She is diabetic. Has a known history of coronary disease with previous angioplasty with stenting. MD complaint: chest pain Onset (ago): hour(s) Timing of current episode: episodic Prior episodes: Yes Onset: during rest Pain location: right chest Pain radiation: right arm Severity: moderate Quality: sharp Relieving factors: rest Exacerbating factors: palpation and movement Associated symptoms: Deny abdominal pain, diaphoresis, dyspnea, fever(s), leg edema, nausea, palpitations, sense of impending doom, syncope or vomiting Treatment prior to arrival: none Review of Systems Const: Denies: fever(s), chills, fatigue, malaise or diaphoresis Card: Reports: chest pain; Denies: palpitations or syncope Resp: Denies: dyspnea GI: Denies: abdominal pain, nausea or vomiting PFSH ED PFSH: Medical History Acute hyponatremia Acute renal failure Anemia of chronic disease Back pain C. difficile diarrhea Chronic abdominal pain Chronic pain Chronic pain syndrome CKD (chronic kidney disease) stage 2, GFR 60-89 ml/min baseline Cr is around 1.0 Coronary artery disease hx of stenting Depression Diabetes mellitus type 1 diagnosed age 15, history of peripheral neuropathy, gastroparesis and nephropathy Diabetic foot ulcer s/p surgical intervention and eventual amputation Diabetic gastroparesis Diabetic ophthalmopathy Foot osteomyelitis, right ALEJANDRO (generalized anxiety disorder) Gastroparesis GERD (gastroesophageal reflux disease) High anion gap metabolic acidosis Hyperglycemia Hyperlipidemia Hypertension Hyponatremia Insomnia 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 Nausea & vomiting Non-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 Psychiatric care PTSD (post-traumatic stress disorder) Self-harming behavior Self-harming behavior Septic prepatellar bursitis of left knee Suicidal ideation Suicidal ideation Toe infection UTI (urinary tract infection) Surgical History Below-knee amputation of left lower extremity H/O esophagogastroduodenoscopy (12/31/20) Bile reflux gastritis, grade B esophagitis H/O exploratory laparotomy x 3 History of amputation of right forefoot Hx of angioplasty Hx of cholecystectomy Previous section x 3 S/P coronary artery stent placement x 1 S/P percutaneous endoscopic gastrostomy (PEG) tube placement Family History Unknown Diabetes extensive, type II Other CHF (congestive heart failure) Social History Smoking and tobacco status: never smoked Quit status (tobacco): has quit using tobacco Former quit date comment: 15 yrs ago Alcohol intake: former Former alcohol use details: 15 yrs ago Household members: spouse Marital status: Sexually active: Yes (1, ) Female Reproductive History: Spontaneous abortions: No Physical Exam Const: GENERAL APPEARANCE: cooperative and comfortable ORIENTATION/CONSCIOUSNESS: Yes awake, Yes oriented to person, Yes oriented to place and Yes oriented to time HENMT: COMMON NORMALS: normocephalic, atraumatic and hearing grossly normal bilaterally HEAD & SCALP: normocephalic and atraumatic Resp: COMMON NORMALS: normal respiratory effort, No retractions, No use of accessory muscles and clear to auscultation bilaterally AUSCULTATION: clear to auscultation bilaterally Cardio: COMMON NORMALS: regular rate, regular rhythm and No murmurs present (Cardio) RATE: regular rate RHYTHM: regular rhythm GI: COMMON NORMALS: Soft to palpation and No hepatosplenomegaly present AU SCULTATION: Yes normoactive bowel sounds PALPATION: Yes Soft to palpation, No Tenderness to palpation present (GI), No Guarding due to palpation present (GI) and Yes No hepatosplenomegaly present Extremity: COMMON NORMALS: no calf tenderness (Right) and no pedal edema (Right) NARRATIVE EXTREMITY EXAM: Left below the knee amputation Neuro: SENSORIUM/ORIENTATION: Yes oriented to person, Yes oriented to place and Yes oriented to time Skin: COMMON NORMALS: no rashes or lesions noted GENERAL SKIN EXAM: no rashes or lesions noted Course Vital Signs: Vital signs: Vital Signs Temperature 98 F 05/26/22 11:35 Pulse Rate 85 05/26/22 11:35 Respiratory Rate 22 H 05/26/22 11:35 Blood Pressure 130/77 05/26/22 11:35 Pulse Oximetry 100 05/26/22 11:35 Oxygen Delivery Me thod 05/26/22 11:35 MDM - Chest Pain Medical Decision Making Troponin EKG unremarkable. Pain is resolved discharge home follow-up as needed Medical Records I reviewed the patient's medical records. Lab Data I reviewed the patient's lab results. : 05/26/22 12:10 05/26/22 12:10 Radiology Impressions Chest X-Ray 05/26/22 11:26 IMPRESSION: No acute findings. Laboratory Results WBC 7.3 10^3/uL (4.0-10.0) 05/26/22 12:10 RBC 3.54 10^6/uL (4.1-5.3) L 05/26/22 12:10 Hgb 8.8 g/dL (11.5-15.3) L 05/26/22 12:10 Hct 28.4 % (37.0-47.0) L 05/26/22 12:10 MCV 80.2 fl (81-99) L 05/26/22 12:10 MCH 24.9 pg (28.0-34.0) L 05/26/22 12:10 MCHC 31.0 g/dL (30.0-36.0) 05/26/22 12:10 RDW 15.9 % (12.1-15.1) H 05/26/22 12:10 Plt Count 518 10^3/cmm (130-400) H 05/26/22 12:10 MPV 8.6 fL (7.4-10.4) 05/26/22 12:10 Neut % (Auto) 74.2 % 05/26/22 12:10 Lymph % (Auto) 19.0 % 05/26/22 12:10 [place] % (Auto) 4.7 % 05/26/22 12:10 Eos % (Auto) 1.2 % 05/26/22 12:10 Baso % (Auto) 0.5 % 05/26/22 12:10 Neut # (Auto) 5.40 10^3/uL (1.8-7.7) 05/26/22 12:10 Lymph # (Auto) 1.4 10^3/uL (0.8-4.8) 05/26/22 12:10 [place] # (Auto) 0.3 10^3/uL (0.2-0.9) 05/26/22 12:10 Eos # (Auto) 0.1 10^3/uL (0.0-0.8) 05/26/22 12:10 Baso # (Auto) 0.0 10^3/uL (0.0-0.1) 05/26/22 12:10 Nucleated RBC % (auto) 0 % 05/26/22 12:10 Nucleated RBCs # 0.0 /100WBC 05/26/22 12:10 Sodium 136 mmol/L (136-145) 05/26/22 12:10 Potassium 2.9 mmol/L (3.5-5.1) L 05/26/22 12:10 Chloride 99 mmol/L (98-107) 05/26/22 12:10 Carbon Dioxide 24 mmol/L (22-29) 05/26/22 12:10 Anion Gap 15.9 (5-19) 05/26/22 12:10 BUN 13 mg/dL (6-20) 05/26/22 12:10 Creatinine 1.1 mg/dL (0.5-0.9) H 05/26/22 12:10 GFR Calculation 54.0 mL/min (90-130) L 05/26/22 12:10 Glucose 139 mg/dL (65-115) H 05/26/22 12:10 Calculated Osmolality 284 mOsm/kg (285-295) L 05/26/22 12:10 Calcium 9.7 mg/dL (8.5-10.5) 05/26/22 12:10 Total Bilirubin 0.3 mg/dL (0.15-1.2) 05/26/22 12:10 AST 14 U/L (0-32) 05/26/22 12:10 ALT 14 U/L (0-33) 05/26/22 12:10 Alkaline Phosphatase 123 U/L (35-105) H 05/26/22 12:10 Troponin T Baseline 47 ng/L (0-10) H 05/26/22 12:10 Troponin T 120 Minute 38.49 ng/L (0-10) H 05/26/22 14:15 Delta Troponin T -8.51 ABS# (0-10) L 05/26/22 14:15 Total Protein 8.0 g/dL (6.6-8.7) 05/26/22 12:10 Albumin 4.2 g/dL (3.5-5.2) 05/26/22 12:10 Globulin 3.8 g/dL (1.3-4.6) 05/26/22 12:10 Discharge Plan Discharge Patient Disposition: Home Clinical Impression: Acute chest wall pain, Chronic anemia Condition: Stable Prescriptions: No Action Lantus Solostar U-100 Insulin 100 unit/mL (3 mL) insulin pen 40 unit SUBCUT BEDTIME 30 Days Qty: 15 2RF (DME) Comfort EZ Pen [place] 33 gauge x 1/4 needle See Rx Instructions .ROUTE .MEDSUPPLY Qty: 100 2RF Rx Instructions: As directed (DME) Blood Glucose Test Strip See Rx Instructions .Route Qty: 100 11RF Rx Instructions: Use with meter to test 3 times a day. atorvastatin 40 mg tablet 40 mg PO DAILY 30 Days Qty: 30 1RF ropinirole 1 mg tablet 1 mg PO BEDTIME 30 Days Qty: 30 1RF amlodipine 10 mg tablet 10 mg PO DAILY 30 Days Qty: 30 1RF docusate sodium [Colace] 100 mg capsule 100 mg PO BID 30 Days Qty: 60 1RF metoprolol succinate 25 mg tablet extended release 24 hr 50 mg PO DAILY 30 Days Qty: 60 1RF cyclobenzaprine 10 mg Tablet 10 mg PO BID PRN (Reason: Muscle Spasms) 30 Days Qty: 60 1RF insulin aspart U-100 [Novolog Flexpen U-100 Insulin] 100 unit/mL (3 mL) insulin pen 10 unit SUBCUT TID spironolactone 25 mg tablet 25 mg PO BID Reglan 10 mg tablet 10 mg PO Q6H PRN (Reason: nausea and vomiting) Qty: 20 0RF doxycycline hyclate 100 mg tablet 100 mg PO Q12H 14 Days Qty: 28 0RF metronidazole 500 mg tablet 500 mg PO Q12H 14 Days Qty: 28 0RF duloxetine 30 mg capsule,delayed release(DR/EC) 30 mg PO TID Qty: 90 0RF trazodone 50 mg tablet 50 mg PO BEDTIME doxepin 10 mg capsule 10 mg PO BEDTIME promethazine 25 mg tablet 25 mg PO Q6H PRN (Reason: Nausea) oxycodone 5 mg tablet 5 mg PO Q6H PRN (Reason: pain) Qty: 28 0RF Bactrim DS 800-160 mg tablet 1 tab PO BID Qty: 4 0RF gabapentin 100 mg capsule 100 mg PO Q8H Qty: 20 0RF Reglan 10 mg tablet 10 mg PO Q6H PRN (Reason: nausea and vomiting) Qty: 20 0RF hydrocodone-acetaminophen 5-325 mg tablet 1 tab PO Q8H PRN (Reason: pain, severe) Qty: 9 0RF Discharge Orders: Discharge ED (Routine); Ordered 05/26/22 Ordered By: Adama Ceballos Discharge Diet: Usual diet Discharge Activity: Resume usual activity Patient Instructions: Opioid Safety, Pain Management Activity Restrictions/Additional Instructions: Follow-up with your primary care provider. Coding Level of Care Code ED Back Feeder [employer] Layup Line for Kim Mitchell
--- NOTE | 2022-05-26 11:26 | XRR_ITS ---
PROCEDURE INFORMATION: Exam: XR Chest Exam date and time: 05/26/2022 12:43 PM Age: 42 years old Clinical indication: Pain; Chest pressure; Additional info: Dyspnea/cough TECHNIQUE: Imaging protocol: Radiologic exam of the chest. Views: 1 view. COMPARISON: CR XR chest 1V portable [id number] 01/21/2021 12:19 PM FINDINGS: Lungs: Unremarkable. No consolidation. Pleural spaces: Unremarkable. No pleural effusion. No pneumothorax. Heart/Mediastinum: Unremarkable. No cardiomegaly. Bones/joints: Unremarkable. XR/XR chest 1V portable [id number] IMPRESSION: No acute findings.
[2022-05-26 11:35] VITALS: BP 130/77; PULSE 85; RESP 22; TEMP 36.6; O2SAT 100
--- NOTE | 2022-05-26 11:59 | ECG_ITS ---
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 Measurements Intervals [place] Rate: 81 P: 1 WI: 133 QRS: -7 QRSD: 96 T: 77 QT: 362 QTc: 422 Interpretive Statements SINUS RHYTHM NONSPECIFIC T-WAVE ABNORMALITY Compared to ECG 12/22/2021 09:09:16 T-wave abnormality now present Sinus tachycardia no longer present Electronically Signed On 05-26-2022 19:32:04 CDT by Joseluis Tracy M.D. [id number]
[2022-05-26 12:20] LABS: Basophils % 0.5 %; Eosinophils # 0.1 10^3/uL (0.0-0.8); Eosinophils % 1.2 %; Hematocrit 28.4 % (37.0-47.0); Hemoglobin 8.8 g/dL (11.5-15.3); Lymphocytes # 1.4 10^3/uL (0.8-4.8); Mean Corpuscular Hemoglobin 24.9 pg (28.0-34.0); Mean Corpuscular Volume 80.2 fl (81-99); Mean Platelet Volume 8.6 fL (7.4-10.4); Monocytes # 0.3 10^3/uL (0.2-0.9); Monocytes % 4.7 %; Neutrophils % 74.2 %; Nucleated Red Blood Cells % 0 %; Platelet Count 518 10^3/cmm (130-400); Red Blood Count 3.54 10^6/uL (4.1-5.3); Red Cell Distribution Width 15.9 % (12.1-15.1); White Blood Count 7.3 10^3/uL (4.0-10.0)
[2022-05-26 12:45] LABS: Alanine Aminotransferase 14 U/L (0-33); Albumin Level 4.2 g/dL (3.5-5.2); Alkaline Phosphatase 123 U/L (35-105); Anion Gap 15.9 (5-19); Aspartate Amino Transferase 14 U/L (0-32); Blood Urea Nitrogen 13 mg/dL (6-20); Calcium 9.7 mg/dL (8.5-10.5); Carbon Dioxide 24 mmol/L (22-29); Chloride 99 mmol/L (98-107); Globulin 3.8 g/dL (1.3-4.6); Glucose 139 mg/dL (65-115); Osmolality Calculated 284 mOsm/kg (285-295); Sodium 136 mmol/L (136-145); Total Bilirubin 0.3 mg/dL (0.15-1.2)
[2022-05-26 12:48] LABS: Troponin(5th) Baseline 47 ng/L (0-10)
[2022-05-26 13:26] LABS: Potassium 2.9 mmol/L (3.5-5.1)
[2022-05-26] MEDS: acetaminophen 500 mg Tablet 1000 MG PO (13:54)
--- NOTE | 2022-05-26 13:55 | ECG_ITS ---
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 Measurements Intervals [place] Rate: 81 P: 11 NH: 133 QRS: 15 QRSD: 97 T: 78 QT: 353 QTc: 412 Interpretive Statements SINUS RHYTHM Compared to ECG 05/26/2022 11:59:05 T-wave abnormality no longer present Electronically Signed On 05-26-2022 19:39:26 CDT by Joseluis Tracy M.D. [id number]
[2022-05-26] MEDS: potassium chloride oral liq 20 mEq/15 mL UDC 40 MEQ PO (13:57)
[2022-05-26 14:54] LABS: Troponin 5 2HR 38.49 ng/L (0-10)
[2022-05-26 14:57] LABS: Troponin 5 2HR Delta -8.51 ABS# (0-10)
[2022-05-26 15:30] VITALS: BP 135/78; PULSE 78; RESP 16; O2SAT 95
== END 2022-05-26 15:45 | disposition home or self-care (01) ==
PROVIDERS: Emergency Provider Family Medicine
DX: R07.89 Other chest pain (principal); D64.89 Other specified anemias; Z79.4 Long term (current) use of insulin; Z87.891 Personal history of nicotine dependence; Z89.512 Acquired absence of left leg below knee; I12.9 Hypertensive chronic kidney disease with stage 1 through stage 4 chronic kidney disease, or unspecified chronic kidney disease; E10.22 Type 1 diabetes mellitus with diabetic chronic kidney disease; N18.2 Chronic kidney disease, stage 2 (mild); I25.10 Atherosclerotic heart disease of native coronary artery without angina pectoris; E78.5 Hyperlipidemia, unspecified
CPT/HCPCS: 36415; 71045; 80053; 84484; 85025; 93005; 99285

== ENCOUNTER 2022-05-28 15:13 | Emergency (ER) | payer MEDICAID, SELFPAY ==
[2022-05-28 16:04] VITALS: BP 148/81; PULSE 94; RESP 20; TEMP 36.7; O2SAT 100; BMI 23.6
--- NOTE | 2022-05-28 16:28 | ED_ITS ---
HPI - Back Pain/Injury General: Chief Complaint: Back Pain/Injury Stated Complaint: Back pain Time Seen by Provider: 05/28/22 16:28 History of Present Illness: 42-year-old female comes in today with complaints of low back pain. Patient states that she was in the shower and felt a pop in her low back pain. Since then she has had increased pain and discomfort with some radiation down the legs. Patient denies any loss of bowel or bladder control. Patient does have chronic back pain. Patient denies any fever. Patient appears nontoxic. Patient appears in moderate pain. Associated symptoms: Deny fever(s) Review of Systems Const: Denies: fever(s) Musc: Reports: back pain PFSH ED PFSH: Medical History Acute hyponatremia Acute renal failure Anemia of chronic disease Back pain C. difficile diarrhea Chronic abdominal pain Chronic pain Chronic pain syndrome CKD (chronic kidney disease) stage 2, GFR 60-89 ml/min baseline Cr is around 1.0 Coronary artery disease hx of stenting Depression Diabetes mellitus type 1 diagnosed age 15, history of peripheral neuropathy, gastroparesis and nephropathy Diabetic foot ulcer s/p surgical intervention and eventual amputation Diabetic gastroparesis Diabetic ophthalmopathy Foot osteomyelitis, right ALEJANDRO (generalized anxiety disorder) Gastroparesis GERD (gastroesophageal reflux disease) High anion gap metabolic acidosis Hyperglycemia Hyperlipidemia Hypertension Hyponatremia Insomnia 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 Nausea & vomiting Non-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 Psychiatric care PTSD (post-traumatic stress disorder) Self-harming behavior Self-harming behavior Septic prepatellar bursitis of left knee Suicidal ideation Suicidal ideation Toe infection UTI (urinary tract infection) Surgical History Below-knee amputation of left lower extremity H/O esophagogastroduodenoscopy (12/31/20) Bile reflux gastritis, grade B esophagitis H/O exploratory laparotomy x 3 History of amputation of right forefoot Hx of angioplasty Hx of cholecystectomy Previous section x 3 S/P coronary artery stent placement x 1 S/P percutaneous endoscopic gastrostomy (PEG) tube placement Family History Unknown Diabetes extensive, type II Other CHF (congestive heart failure) Social History Smoking and tobacco status: never smoked Quit status (tobacco): has quit using tobacco Former quit date comment: 15 yrs ago Alcohol intake: former Former alcohol use details: 15 yrs ago Household members: spouse Marital status: Sexually active: Yes (1, ) Female Reproductive History: Spontaneous abortions: No Physical Exam Const: COMMON NORMALS: alert HENMT: COMMON NORMALS: normocephalic HEAD & SCALP: normocephalic Neck/C-Spine: COMMON NORMALS: full ROM Resp: COMMON NORMALS: normal respiratory effort and clear to auscultation bilaterally AUSCULTATION: clear to auscultation bilaterally Cardio: COMMON NORMALS: regular rate RATE: regular rate Back/Pelvis: THORACIC SPINE/UPPER BACK: No thoracic spinal tenderness and Yes paraspinal muscle tenderness LUMBAR SPINE/LOWER BACK: Yes lumbar spinal tenderness and Yes paraspinal muscle tenderness Extremity: NARRATIVE EXTREMITY EXAM: Peripheral vascular changes with amputations of toes on the right foot and foot on the left leg. Neuro: SENSORIUM/ORIENTATION: Yes alert Skin: COMMON NORMALS: turgor normal GENERAL SKIN EXAM: turgor normal Course Vital Signs: Vital signs: Vital Signs Temperature 98.0 F 05/28/22 16:04 Pulse Rate 94 05/28/22 16:04 Respiratory Rate 20 H 05/28/22 16:04 Blood Pressure 148/81 05/28/22 16:04 Pulse Oximetry 100 05/28/22 16:04 Oxygen Delivery Me thod 05/28/22 16:04 MDM - Back Pain/Injury Medical Decision Making 42-year-old female comes in today with exacerbation of chronic pain. Patient was in the shower and felt a strain in her lower back. On exam patient has some muscle tenderness on palpation and some lower lumbar spine tenderness. Patient denies fall. Vital signs are normal. No cauda equina syndrome is noted. Differential diagnosis includes but not limited to intervertebral disc disease, facet arthropathy, lumbar strain, malingering. Patient was given a dose of hydrocodone along with orphenadrine and gabapentin in the ER. Patient be continued on with a short course of hydrocodone 9 tablets, and started on gabapentin routinely 300 mg 3 times a day for the next 10 days with recommenda tions for follow-up with primary care. Patient reports that primary care is setting her up with pain management. Discharge Plan Discharge Patient Disposition: Home Clinical Impression: Chronic bilateral low back pain Qualifiers: Sciatica presence: unspecified whether sciatica present Qualified Code(s): M54.50 - Low back pain, unspecified Strain of lumbar region Qualifiers: Encounter type: initial encounter Qualified Code(s): S39.012A - Strain of muscle, fascia and tendon of lower back, initial encounter Condition: Stable Prescriptions: New gabapentin 300 mg capsule 300 mg PO TID Qty: 30 0RF Continued hydrocodone-acetaminophen 5-325 mg tablet 1 tab PO Q8H PRN (Reason: pain, severe) Qty: 9 0RF Discontinued gabapentin 100 mg capsule 100 mg PO Q8H Qty: 20 0RF No Action Lantus Solostar U-100 Insulin 100 unit/mL (3 mL) insulin pen 40 unit SUBCUT BEDTIME 30 Days Qty: 15 2RF (DME) Comfort EZ Pen [place] 33 gauge x 1/4 needle See Rx Instructions .ROUTE .MEDSUPPLY Qty: 100 2RF Rx Instructions: As directed (DME) Blood Glucose Test Strip See Rx Instructions .Route Qty: 100 11RF Rx Instructions: Use with meter to test 3 times a day. atorvastatin 40 mg tablet 40 mg PO DAILY 30 Days Qty: 30 1RF ropinirole 1 mg tablet 1 mg PO BEDTIME 30 Days Qty: 30 1RF amlodipine 10 mg tablet 10 mg PO DAILY 30 Days Qty: 30 1RF docusate sodium [Colace] 100 mg capsule 100 mg PO BID 30 Days Qty: 60 1RF metoprolol succinate 25 mg tablet extended release 24 hr 50 mg PO DAILY 30 Days Qty: 60 1RF cyclobenzaprine 10 mg Tablet 10 mg PO BID PRN (Reason: Muscle Spasms) 30 Days Qty: 60 1RF insulin aspart U-100 [Novolog Flexpen U-100 Insulin] 100 unit/mL (3 mL) insulin pen 10 unit SUBCUT TID spironolactone 25 mg tablet 25 mg PO BID Reglan 10 mg tablet 10 mg PO Q6H PRN (Reason: nausea and vomiting) Qty: 20 0RF doxycycline hyclate 100 mg tablet 100 mg PO Q12H 14 Days Qty: 28 0RF metronidazole 500 mg tablet 500 mg PO Q12H 14 Days Qty: 28 0RF duloxetine 30 mg capsule,delayed release(DR/EC) 30 mg PO TID Qty: 90 0RF trazodone 50 mg tablet 50 mg PO BEDTIME doxepin 10 mg capsule 10 mg PO BEDTIME promethazine 25 mg tablet 25 mg PO Q6H PRN (Reason: Nausea) oxycodone 5 mg tablet 5 mg PO Q6H PRN (Reason: pain) Qty: 28 0RF Bactrim DS 800-160 mg tablet 1 tab PO BID Qty: 4 0RF Reglan 10 mg tablet 10 mg PO Q6H PRN (Reason: nausea and vomiting) Qty: 20 0RF Discharge Orders: Discharge ED (Routine); Ordered 05/28/22 Ordered By: Idris Louise Referrals: Mora Rodrigues FNP [Primary Care Provider] - Discharge Diet: Diabetic Discharge Activity: Increase activity as tolerated Patient Instructions: Chronic Back Pain (DC), Opioid Safety, Pain Management Activity Restrictions/Additional Instructions: Continue with routine plan for medication and treatment of chronic pain. Follow-up with primary care for further instruction. Return to ER for new concerns. Coding Level of Care Code ED Lacing Presser for Kim Mitchell
[2022-05-28] MEDS: gabapentin 300 mg Capsule PO (16:45)
[2022-05-28] MEDS: HYDROcodone-acetaminophen 7.5-325 mg Tablet 1 TAB PO (16:45)
[2022-05-28] MEDS: orphenadrine 30 mg/mL Inj 2 mL 60 MG IM (16:45)
== END 2022-05-28 16:50 | disposition home or self-care (01) ==
PROVIDERS: Emergency Provider Nurse Practitioner Family; PCP Nurse Practitioner Family
DX: S39.012A Strain of muscle, fascia and tendon of lower back, initial encounter (principal); G89.29 Other chronic pain; M54.50 Low back pain, unspecified; Z79.4 Long term (current) use of insulin; Z87.891 Personal history of nicotine dependence; E10.22 Type 1 diabetes mellitus with diabetic chronic kidney disease; I12.9 Hypertensive chronic kidney disease with stage 1 through stage 4 chronic kidney disease, or unspecified chronic kidney disease; N18.2 Chronic kidney disease, stage 2 (mild); I25.10 Atherosclerotic heart disease of native coronary artery without angina pectoris; E78.5 Hyperlipidemia, unspecified; Z89.512 Acquired absence of left leg below knee; X58.XXXA Exposure to other specified factors, initial encounter
CPT/HCPCS: 96372; 99284; J2360

== ENCOUNTER 2022-06-03 09:27 | Emergency (ER) | payer MEDICAID, SELFPAY ==
[2022-06-03 10:12] VITALS: BP 162/119; PULSE 97; RESP 18; TEMP 36.6; O2SAT 100; BMI 23.6
--- NOTE | 2022-06-03 10:21 | PC.NURSE ---
pt reports a sore to her left foot, present for 3 weeks. reports has not been seen before by a physician for this wound and that pain started today. states she tried tylenol and ibuprofen this morning with no relief. denies fevers. No drainage visualized, no surrounding erythema. lung sounds clear bilat.
--- NOTE | 2022-06-03 10:25 | XRR_ITS ---
PROCEDURE INFORMATION: Exam: XR Right Foot Exam date and time: 06/03/2022 10:37 AM Age: 42 years old Clinical indication: Pain; Foot; Right; Prior surgery; Surgery type: Toes; Additional info: Pain, venous stasis sore, eval for osteo TECHNIQUE: Imaging protocol: Radiologic exam of the Right foot. Views: 1 or 2 views. COMPARISON: CT lower leg RT w con [id number] 02/10/2020 9:52 PM FINDINGS: Bones/joints: There has been resection of the 1st, 3rd and 4th phalanges. These findings are new involving the 3rd 4th digit since the CT scan. No evidence of lytic or sclerotic lesion of the remaining osseous structures. Soft tissues: Questionable ulceration versus postoperative changes involving the soft tissues distal to the 1st metatarsal. Vasculature: Extensive vascular calcifications. XR/XR foot RT 2V [id number] IMPRESSION: 1. Postoperative changes with vascular calcifications and a questionable 1st digit distal soft tissue erosion versus postoperative changes. 2. Consider MRI if clinically indicated and medically possible for better evaluation for osteomyelitis.
[2022-06-03] MEDS: ketorolac 30 mg/mL INJ 15 MG IM (10:32)
[2022-06-03] MEDS: acetaminophen 325 mg Tablet 975 MG PO (10:42)
--- NOTE | 2022-06-03 10:51 | ED_ITS ---
HPI - General Adult General: Chief complaint: General Medical Stated complaint: Sore on bottom of feet Time Seen by Provider: 06/03/22 09:34 History of Present Illness: 42-year-old female presenting today with pain to her right foot. Patient noting pain over her right first digit. Pain has been present for several weeks. She notes ulcers been present for several weeks. Has never been evaluated for this before. Has not been followed by wound management. No associated fevers, chills, nausea, vomiting. Patient with severe chronic pain. Review of Systems General: Reports: 10 or more systems reviewed and unremarkable except in HPI and below PFS ED PFS: Medical History Acute hyponatremia Acute renal failure Anemia of chronic disease Back pain C. difficile diarrhea Chronic abdominal pain Chronic pain Chronic pain syndrome CKD (chronic kidney disease) stage 2, GFR 60-89 ml/min baseline Cr is around 1.0 Coronary artery disease hx of stenting Depression Diabetes mellitus type 1 diagnosed age 15, history of peripheral neuropathy, gastroparesis and nephropathy Diabetic foot ulcer s/p surgical intervention and eventual amputation Diabetic gastroparesis Diabetic ophthalmopathy Foot osteomyelitis, right ALEJANDRO (generalized anxiety disorder) Gastroparesis GERD (gastroesophageal reflux disease) High anion gap metabolic acidosis Hyperglycemia Hyperlipidemia Hypertension Hyponatremia Insomnia 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 Nausea & vomiting Non-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 Psychiatric care PTSD (post-traumatic stress disorder) Self-harming behavior Self-harming behavior Septic prepatellar bursitis of left knee Suicidal ideation Suicidal ideation Toe infection UTI (urinary tract infection) Surgical History Below-knee amputation of left lower extremity H/O esophagogastroduodenoscopy (12/31/20) Bile reflux gastritis, grade B esophagitis H/O exploratory laparotomy x 3 History of amputation of right forefoot Hx of angioplasty Hx of cholecystectomy Previous section x 3 S/P coronary artery stent placement x 1 S/P percutaneous endoscopic gastrostomy (PEG) tube placement Family History Unknown Diabetes extensive, type II Other CHF (congestive heart failure) Social History Smoking and tobacco status: never smoked Quit status (tobacco): has quit using tobacco Former quit date comment: 15 yrs ago Alcohol intake: former Former alcohol use details: 15 yrs ago Household members: spouse Marital status: Sexually active: Yes (1, ) Female Reproductive History: Spontaneous abortions: No Physical Exam Const: COMMON NORMALS: no acute distress, patient oriented x3 and alert GENERAL APPEARANCE: cooperative ORIENTATION/CONSCIOUSNESS: Yes awake, Yes oriented to person, Yes oriented to place and Yes oriented to time HENMT: COMMON NORMALS: normocephalic, atraumatic, external ears normal, Normal external nose present and moist oral mucous membranes HEAD & SCALP: normal to inspection, normocephalic and atraumatic NOSE: Normal external nose present GENERAL EAR: hearing grossly impaired EXTERNAL EAR: Yes external ears normal Eye: COMMON NORMALS: Equal, round and reactive pupils present, EOMs intact bilaterally, conjunctivae normal and no scleral icterus GENERAL EYE: appearance normal, both eyes and all related structures EYELID: eyelids normal CONJUNCTIVA: Yes conjunctivae normal SCLERA: sclerae normal PUPIL: Yes Equal, round and reactive pupils present Neck/C-Spine: COMMON NORMALS: full ROM, supple and no JVD GENERAL: Yes normal visual inspection Lymph: LYMPHATIC: no lymphadenopathy noted and no lymphedema noted Chest: COMMONS NORMALS: normal inspection of the chest Resp: COMMON NORMALS: normal respiratory effort, No retractions and No use of accessory muscles Cardio: COMMON NORMALS: no JVD, regular rate and regular rhythm RATE: regular rate RHYTHM: regular rhythm GI: COMMON NORMALS: Normal to inspection, nondistended, normoactive bowel sounds present : COMMON NORMALS: Yes no CVA tenderness BLADDER/KIDNEY EXAM: Yes no CVA tenderness Back/Pelvis: COMMON NORMALS: no CVA tenderness and thoracic and lumbar spine normal to inspection Extremity: COMMON NORMALS: full ROM and capillary refill normal; negative for normal to inspection (Patient with partial amputation of the digits of the right foot. Evidence ) GENERAL: Yes normal exam except as noted Neuro: COMMON NORMALS: patient oriented x3, CN's II-XII intact bilaterally, moves all extremities, no focal motor deficits, no sensory deficits noted and gait normal SENSORIUM/ORIENTATION: Yes alert, Yes oriented to person, Yes oriented to place and Yes oriented to time Psych: COMMON NORMALS: mental status grossly normal, Normal thought process present, cooperative and normal affect THOUGHT PROCESS: Normal thought process present Skin: COMMON NORMALS: no rashes or lesions noted and no wounds GENERAL SKIN EXAM: no rashes or lesions noted Course Vital Signs: Vital signs: Vital Signs Temperature 97.9 F 06/03/22 10:12 Pulse Rate 93 06/03/22 11:14 Respiratory Rate 18 06/03/22 10:12 Blood Pressure 111/82 06/03/22 11:14 Pulse Oximetry 95 06/03/22 11:14 Oxygen Delivery Me thod 06/03/22 10:12 MDM - General Adult Medical Decision Making Patient is a 42-year-old female presenting with pain to her right foot. Wound appears to be old. At least several weeks. Appears to be a chronic wound dehi scence and venous stasis ulcer of a prior first digit amputation. Cool to touch. Vitals within normal limits. Review of patient's charts demonstrating multiple visits to the ED for pain medicine. Patient most recently received oxycodone less than 6 days ago from this ED. For back pain. Patient not currently on controlled substances by primary care. Is currently under pain management referral. X-ray without evidence of osteomyelitis. We will start patient on Augmentin. We will decline to give her additional controlled substances at this time. Will refer on to wound care. Patient was okay with this plan. Patient was given strict return precautions and recommended routine outpatient follow-up. Lab Data Radiology Impressions Foot X-Ray 06/03/22 10:25 IMPRESSION: 1. Postoperative changes with vascular calcifications and a questionable 1st digit distal soft tissue erosion versus postoperative changes. 2. Consider MRI if clinically indicated and medically possible for better evaluation for osteomyelitis. Discharge Plan Discharge Patient Disposition: Home Clinical Impression: Venous stasis ulcer Condition: Stable Prescriptions: New amoxicillin-pot clavulanate 875-125 mg tablet 1 tab PO Q12H 7 Days Qty: 14 0RF diclofenac sodium 75 mg tablet,delayed release (DR/EC) 75 mg PO BID Qty: 30 0RF No Action Lantus Solostar U-100 Insulin 100 unit/mL (3 mL) insulin pen 40 unit SUBCUT BEDTIME 30 Days Qty: 15 2RF (DME) Comfort EZ Pen [place] 33 gauge x 1/4 needle See Rx Instructions .ROUTE .MEDSUPPLY Qty: 100 2RF Rx Instructions: As directed (DME) Blood Glucose Test Strip See Rx Instructions .Route Qty: 100 11RF Rx Instructions: Use with meter to test 3 times a day. atorvastatin 40 mg tablet 40 mg PO DAILY 30 Days Qty: 30 1RF ropinirole 1 mg tablet 1 mg PO BEDTIME 30 Days Qty: 30 1RF amlodipine 10 mg tablet 10 mg PO DAILY 30 Days Qty: 30 1RF docusate sodium [Colace] 100 mg capsule 100 mg PO BID 30 Days Qty: 60 1RF metoprolol succinate 25 mg tablet extended release 24 hr 50 mg PO DAILY 30 Days Qty: 60 1RF cyclobenzaprine 10 mg Tablet 10 mg PO BID PRN (Reason: Muscle Spasms) 30 Days Qty: 60 1RF insulin aspart U-100 [Novolog Flexpen U-100 Insulin] 100 unit/mL (3 mL) insulin pen 10 unit SUBCUT TID spironolactone 25 mg tablet 25 mg PO BID Reglan 10 mg tablet 10 mg PO Q6H PRN (Reason: nausea and vomiting) Qty: 20 0RF hydrocodone-acetaminophen 5-325 mg tablet 1 tab PO Q8H PRN (Reason: pain, severe) Qty: 9 0RF gabapentin 300 mg capsule 300 mg PO TID Qty: 30 0RF duloxetine 30 mg capsule,delayed release(DR/EC) 30 mg PO TID Qty: 90 0RF trazodone 50 mg tablet 50 mg PO BEDTIME doxepin 10 mg capsule 10 mg PO BEDTIME promethazine 25 mg tablet 25 mg PO Q6H PRN (Reason: Nausea) oxycodone 5 mg tablet 5 mg PO Q6H PRN (Reason: pain) Qty: 28 0RF Bactrim DS 800-160 mg tablet 1 tab PO BID Qty: 4 0RF Reglan 10 mg tablet 10 mg PO Q6H PRN (Reason: nausea and vomiting) Qty: 20 0RF Discharge Orders: Discharge ED (Routine); Ordered 06/03/22 Ordered By: Johnnie Alvarez Referrals: Mora Rodrigues, ARLIN [Primary Care Provider] - Patient Instructions: Venous Insufficiency (DC), Chronic Wounds (ED), Opioid Safety, Pain Management Coding Level of Care Code ED Chlorine Plant Operator for Chg Fwd Exam Comprehensive
[2022-06-03 11:14] VITALS: BP 111/82; PULSE 93; O2SAT 95
[2022-06-03 12:13] VITALS: BP 150/92; PULSE 98; RESP 16; O2SAT 98
--- NOTE | 2022-06-04 11:38 | DCPLANNER ---
Addendum entered by Audrey Estrada 06/06/22 11:49: Patient had a follow up appointment scheduled for 06.05.22 with Wound Care - patient did attend appointment. Original Note: commercial center manager had message to schedule a follow up appointment for patient with wound care. commercial center manager sent patients information to the front office at Wound Care. Patients information will be printed and reviewed. Clinic will call patient with appointment information.
== END 2022-06-03 12:15 | disposition home or self-care (01) ==
PROVIDERS: Emergency Provider Emergency Medicine; PCP Nurse Practitioner Family
DX: I83.015 Varicose veins of right lower extremity with ulcer other part of foot (principal); L97.519 Non-pressure chronic ulcer of other part of right foot with unspecified severity; Z79.4 Long term (current) use of insulin; Z87.891 Personal history of nicotine dependence; Z89.422 Acquired absence of other left toe(s); Z89.421 Acquired absence of other right toe(s)
CPT/HCPCS: 73620; 96372; 99284; J1885

== ENCOUNTER → 2022-06-05 14:30 | Outpatient (BNVA) | payer MEDICAID, SELFPAY | PROVIDERS: PCP Nurse Practitioner Family; Visit Provider Nurse Practitioner Family | DX: I96 Gangrene, not elsewhere classified (principal); E10.621 Type 1 diabetes mellitus with foot ulcer; L97.522 Non-pressure chronic ulcer of other part of left foot with fat layer exposed; E11.40 Type 2 diabetes mellitus with diabetic neuropathy, unspecified | CPT/HCPCS: 11042; 99213; A6021 ==

== ENCOUNTER 2022-06-13 10:13 | Emergency (ER) | payer MEDICAID, SELFPAY ==
[2022-06-13 10:45] VITALS: BP 202/105; PULSE 106; RESP 18; TEMP 36.8; O2SAT 97; BMI 23.6
--- NOTE | 2022-06-13 12:11 | W.ED.BACK ---
HPI - Back Pain/Injury General: Chief Complaint: Back Pain/Injury Stated Complaint: Chronic Pain Time Seen by Provider: 06/13/22 11:31 Source: patient Mode of arrival: ambulatory History of Present Illness: 42-year-old female presents emergency room with complaint of back pain. She states it began last night she took some Tylenol for it with no relief she also some nausea. Patient has chronic patient is here and has been at the pain clinic previously. Evidently she tells me her primary care doctor is getting her referred to a pain clinic in [place]. She is also complaining of some nausea. She frequently presents emergency room with nausea issues. She has a history of diabetes mellitus with peripheral artery disease and has previously had a [id number] amputation. No chest pain or short of breath. No radiation into the lower extremities with the pain. Patient denies any precipitating event. MD elicited complaint: back pain Pertinent past history: prior back pain Onset (ago): hour(s) Timing: constant Severity: moderate Similar Symptoms Previously: Yes Quality: sharp Location: lumbar spine Radiation: none Exacerbating factors: none Relieving factors: none Associated symptoms: Reports vomiting; Deny abdominal pain, arthralgias, chills, change in bowel habits, difficulty walking, dysuria, fatigue, fecal incontinence, fever(s), hematuria, myalgias, nausea, numbness, syncope, tingling/numbness/burning, urinary frequency, urinary urgency or weakness Review of Systems Const: Denies: fever(s), chills or fatigue ENMT: Denies: throat pain, ear or mastoid pain, nasal discharge or nasal congestion Card: Denies: syncope Resp: Denies: dyspnea, productive cough or non-productive cough GI: Reports: vomiting; Denies: abdominal pain, nausea, fecal incontinence or change in bowel habits : Denies: dysuria, urinary urgency or hematuria Skin/Breast: Denies: rash or pruritus Neuro: Denies: difficulty walking PFSH ED PFSH: Medical History Acute hyponatremia Acute renal failure Anemia of chronic disease Back pain C. difficile diarrhea Chronic abdominal pain Chronic pain Chronic pain syndrome CKD (chronic kidney disease) stage 2, GFR 60-89 ml/min baseline Cr is around 1.0 Coronary artery disease hx of stenting Depression Diabetes mellitus type 1 diagnosed age 15, history of peripheral neuropathy, gastroparesis and nephropathy Diabetic foot ulcer s/p surgical intervention and eventual amputation Diabetic gastroparesis Diabetic ophthalmopathy Foot osteomyelitis, right ALEJANDRO (generalized anxiety disorder) Gastroparesis GERD (gastroesophageal reflux disease) High anion gap metabolic acidosis Hyperglycemia Hyperlipidemia Hypertension Hyponatremia Insomnia 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 Nausea & vomiting Non-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 Psychiatric care PTSD (post-traumatic stress disorder) Self-harming behavior Self-harming behavior Septic prepatellar bursitis of left knee Suicidal ideation Suicidal ideation Toe infection UTI (urinary tract infection) Surgical History Below-knee amputation of left lower extremity H/O esophagogastroduodenoscopy (12/31/20) Bile reflux gastritis, grade B esophagitis H/O exploratory laparotomy x 3 History of amputation of right forefoot Hx of angioplasty Hx of cholecystectomy Previous section x 3 S/P coronary artery stent placement x 1 S/P percutaneous endoscopic gastrostomy (PEG) tube placement Family History Unknown Diabetes extensive, type II Other CHF (congestive heart failure) Social History Smoking and tobacco status: never smoked Quit status (tobacco): has quit using tobacco Former quit date comment: 15 yrs ago Alcohol intake: former Former alcohol use details: 15 yrs ago Household members: spouse Marital status: Sexually active: Yes (1, ) Female Reproductive History: Spontaneous abortions: No Physical Exam Const: GENERAL APPEARANCE: cooperative and comfortable ORIENTATION/CONSCIOUSNESS: Yes awake, Yes oriented to person, Yes oriented to place and Yes oriented to time HENMT: COMMON NORMALS: normocephalic, atraumatic and hearing grossly normal bilaterally HEAD & SCALP: normocephalic and atraumatic Resp: COMMON NORMALS: normal respiratory effort, No retractions, No use of accessory muscles and clear to auscultation bilaterally AUSCULTATION: clear to auscultation bilaterally Cardio: COMMON NORMALS: regular rate, regular rhythm and No murmurs present (Cardio) RATE: regular rate RHYTHM: regular rhythm GI: COMMON NORMALS: Soft to palpation and No hepatosplenomegaly present AUSCULTATION: Yes normoactive bowel sounds PALPATION: Yes Soft to palpation, No Tenderness to palpation present (GI), No Guarding due to palpation present (GI) and Yes No hepatosplenomegaly present Extremity: COMMON NORMALS: normal to inspection, capillary refill normal, no clubbing, cyanosis or edema, no calf tenderness and no pedal edema OTHER: Left below the knee amputation. Sensation of the lower extremities was otherwise normal Neuro: SENSORIUM/ORIENTATION: Yes oriented to person, Yes oriented to place and Yes oriented to time Skin: COMMON NORMALS: no rashes or lesions noted GENERAL SKIN EXAM: no rashes or lesions noted Course Vital Signs: Vital signs: Vital Signs Temperature 98.2 F 06/13/22 10:45 Pulse Rate 87 06/13/22 14:08 Respiratory Rate 19 H 06/13/22 14:08 Blood Pressure 158/88 06/13/22 14:08 Pulse Oximetry 100 06/13/22 14:08 Oxygen Delivery Me thod 06/13/22 10:45 MDM - Back Pain/Injury Medical Decision Making Pt has more of a chronic pain issue. Discussed with her that she should be seen in the pain clinic. At ths point discussed with patient that we cannot treat chronic pain issues in the ED. Medical Records I reviewed the patient's medical records. Labs I reviewed the patient's lab results. Discharge Plan Discharge Patient Disposition: Home Clinical Impression: Chronic back pain Condition: Stable Prescriptions: New pregabalin 150 mg capsule 150 mg PO BID Qty: 60 0RF diclofenac sodium 75 mg tablet,delayed release (DR/EC) 75 mg PO Q12H PRN (Reason: pain) Qty: 20 0RF Discontinued gabapentin 300 mg capsule 300 mg PO TID Qty: 30 0RF oxycodone 5 mg tablet 5 mg PO Q6H PRN (Reason: pain) Qty: 28 0RF No Action (DME) Comfort EZ Pen [place] 33 gauge x 1/4 needle See Rx Instructions .ROUTE .MEDSUPPLY Qty: 100 2RF Rx Instructions: As directed (DME) Blood Glucose Test Strip See Rx Instructions .Route Qty: 100 11RF Rx Instructions: Use with meter to test 3 times a day. ropinirole 1 mg tablet 1 mg PO BEDTIME 30 Days Qty: 30 1RF promethazine 25 mg tablet 25 mg PO Q6H PRN (Reason: Nausea) metoclopramide HCl [Reglan] 10 mg tablet 10 mg PO Q6H PRN (Reason: nausea and vomiting) Qty: 20 0RF cyclobenzaprine 10 mg tablet 10 mg PO TID PRN (Reason: Muscle Spasms) Lantus Solostar U-100 Insulin 100 unit/mL (3 mL) insulin pen 20 unit SUBCUT BEDTIME Humalog KwikPen Insulin 200 unit/mL (3 mL) Insulin Pen See Rx Instructions .ROUTE .COMPLEX Rx Instructions: sliding scale tid (max of 30 units per day) ibuprofen 200 mg Tablet 800 mg PO Q8H PRN (Reason: Pain) ondansetron 4 mg tablet,disintegrating 4 mg PO Q8H PRN (Reason: Nausea And Vomiting) aspirin 81 mg tablet,delayed release (DR/EC) 81 mg PO DAILY Qty: 30 0RF isosorbide mononitrate 30 mg tablet extended release 24 hr 30 mg PO DAILY Qty: 30 0RF Discharge Orders: Discharge ED (Routine); Ordered 06/13/22 Ordered By: Adama Ceballos Referrals: Mora Rodrigues, AUTOMATIC PINSETTER ADJUSTER [Primary Care Provider] - Patient Instructions: Opioid Safety, Pain Management Coding Level of Care Code ED Lanolin Plant Operator for Chg Fwd Exam Detailed
[2022-06-13] MEDS: dexamethasone 10 mg/mL INJ IM (12:18)
[2022-06-13] MEDS: promethazine 25 mg/mL SDV 1 mL IM (12:19)
[2022-06-13] MEDS: orphenadrine 30 mg/mL Inj 2 mL 60 MG IM (12:21)
[2022-06-13] MEDS: ketorolac 30 mg/mL INJ IM (12:24)
[2022-06-13 14:08] VITALS: BP 158/88; PULSE 87; RESP 19; O2SAT 100
== END 2022-06-13 14:09 | disposition home or self-care (01) ==
PROVIDERS: Emergency Provider Family Medicine; PCP Nurse Practitioner Family
DX: G89.29 Other chronic pain (principal); M54.9 Dorsalgia, unspecified; Z79.82 Long term (current) use of aspirin; Z79.4 Long term (current) use of insulin; Z87.891 Personal history of nicotine dependence; Z89.512 Acquired absence of left leg below knee; E10.22 Type 1 diabetes mellitus with diabetic chronic kidney disease; I12.9 Hypertensive chronic kidney disease with stage 1 through stage 4 chronic kidney disease, or unspecified chronic kidney disease; N18.2 Chronic kidney disease, stage 2 (mild); I25.10 Atherosclerotic heart disease of native coronary artery without angina pectoris; E78.5 Hyperlipidemia, unspecified
CPT/HCPCS: 96372; 99284; J1100; J1885; J2360; J2550

== ENCOUNTER 2022-06-16 00:18 | Emergency (ER) | payer MEDICAID, SELFPAY ==
[2022-06-16 00:45] VITALS: PULSE 106; RESP 16; TEMP 36.1; O2SAT 100
--- NOTE | 2022-06-16 01:04 | ECG_ITS ---
[facility] Test Date: 2022-06-16 Pat Name: Cherrie Solomon Department: Room: Gender: Female Heel Attacher Wood: : 1980 Requested By: Pablito Duran Order Number: [id number] Reading MD: Measurements Intervals Randle Rate: 98 P: 3 MA: 130 QRS: 20 QRSD: 97 T: 77 QT: 353 QTc: 451 Interpretive Statements SINUS RHYTHM Compared to ECG 05/26/2022 14:21:57 No significant changes [email or web address]
--- NOTE | 2022-06-16 01:04 | XRR_ITS ---
PROCEDURE INFORMATION: Exam: XR Chest Exam date and time: 06/16/2022 1:54 AM Age: 42 years old Clinical indication: Other: AMS TECHNIQUE: Imaging protocol: Radiologic exam of the chest. Views: 1 view. COMPARISON: CR (CHEST, ) 05/26/2022 12:43 PM FINDINGS: Lungs: Unremarkable. No consolidation. Pleural spaces: Unremarkable. No pleural effusion. No pneumothorax. Heart/Mediastinum: Unremarkable. No cardiomegaly. Bones/joints: Unremarkable. XR/XR chest 1V portable [id number] IMPRESSION: No acute findings.
--- NOTE | 2022-06-16 01:04 | CTR_ITS ---
PROCEDURE INFORMATION: Exam: CT Head Without Contrast Exam date and time: 06/16/2022 1:59 AM Age: 42 years old Clinical indication: Altered mental status/memory loss; Additional info: AMS TECHNIQUE: Imaging protocol: Computed tomography of the head without contrast. Radiation optimization: All CT scans at this facility use at least one of these dose optimization techniques: automated exposure control; mA and/or kV adjustment per patient size (includes targeted exams where dose is matched to clinical indication); or iterative reconstruction. COMPARISON: CT head wo con* [id number] 12/22/2021 7:58 AM RADIATION DOSE METRICS: Total DLP (mGy-cm): 1235.98 FINDINGS: Brain: Severe calcified intracranial atherosclerotic vessel disease. Cerebral ventricles: No ventriculomegaly. Paranasal sinuses: Visualized sinuses are unremarkable. No fluid levels. Mastoid air cells: Visualized mastoid air cells are well aerated. Bones/joints: Unremarkable. No acute fracture. Soft tissues: Mild midline frontal scalp contusion/hematoma versus residual scar tissue from previous scalp injury on December 22, 2021.. CT/CT head wo con* [id number] IMPRESSION: 1. Mild midline frontal scalp contusion/hematoma versus residual scar tissue from previous scalp injury on December 22, 2021.. 2. No acute intracranial findings.
[2022-06-16] MEDS: haloperidol inj 5 mg/mL INJ 1 mL IV (01:25)
[2022-06-16 01:28] LABS: Basophils % 0.4 %; Eosinophils # 0.1 10^3/uL (0.0-0.8); Eosinophils % 1.4 %; Hematocrit 29.3 % (37.0-47.0); Hemoglobin 8.9 g/dL (11.5-15.3); Lymphocytes # 1.5 10^3/uL (0.8-4.8); Lymphocytes % 20.1 %; Mean Corpuscular HGB Conc 30.4 g/dL (30.0-36.0); Mean Corpuscular Hemoglobin 24.1 pg (28.0-34.0); Mean Corpuscular Volume 79.2 fl (81-99); Mean Platelet Volume 9.4 fL (7.4-10.4); Monocytes # 0.6 10^3/uL (0.2-0.9); Monocytes % 7.5 %; Neutrophils # 5.18 10^3/uL (1.8-7.7); Neutrophils % 70.2 %; Nucleated Red Blood Cells % 0 %; Platelet Count 460 10^3/cmm (130-400); Red Cell Distribution Width 15.9 % (12.1-15.1); White Blood Count 7.4 10^3/uL (4.0-10.0)
[2022-06-16] MEDS: LORazepam 1 mg Tablet PO (01:30)
[2022-06-16 01:45] LABS: Glucose Point of Care 185 mg/dL (70-110)
[2022-06-16 01:45] LABS: Slide Review Slide Review Perform
[2022-06-16 01:47] LABS: Acetaminophen < 5.0 ug/mL (10-30); Alanine Aminotransferase 15 U/L (0-33); Albumin Level 3.6 g/dL (3.5-5.2); Alcohol Level < 10 mg/dL (0-10); Alkaline Phosphatase 140 U/L (35-105); Blood Urea Nitrogen 25 mg/dL (6-20); Calcium 9.5 mg/dL (8.5-10.5); Carbon Dioxide 26 mmol/L (22-29); Chloride 99 mmol/L (98-107); Globulin 3.7 g/dL (1.3-4.6); Glomerular Filtration Rate 40.8 mL/min (90-130); Glucose 170 mg/dL (65-115); Osmolality Calculated 294 mOsm/kg (285-295); Salicylate < 0.3 mg/dL (3-10); Sodium 138 mmol/L (136-145); Total Bilirubin 0.2 mg/dL (0.15-1.2); Total Protein 7.3 g/dL (6.6-8.7)
[2022-06-16 01:48] LABS: Anion Gap 17.4 (5-19); Aspartate Amino Transferase 18 U/L (0-32); Potassium 4.4 mmol/L (3.5-5.1)
[2022-06-16 02:16] LABS: Add Urine Microscopic? YES; Bilirubin Urine Neg (Negative); Blood Urine Neg (Negative); Glucose Urine UA 1+ (Normal); Ketones Urine Negative (Negative); Leukocyte Esterase Urine Negative (Negative); Nitrate Urine Negative (Negative); Protein Urine 2+ (Negative); Specific Gravity, Urine 1.015 (1.005-1.030); Urine Appearance Clear (CLEAR); Urine Color Yellow (Yellow); Urobilinogen Urine Neg (Negative); pH Urine 6.5 (5-7)
[2022-06-16 02:18] VITALS: BP 140/88; PULSE 93; RESP 12; O2SAT 99
[2022-06-16 02:24] LABS: Add Urine Culture? No; Bacteria Urine TRACE /hpf; Mucus Urine TRACE /hpf; RBC Urine 0-4 /hpf (0-2); Squamous Epithelial Cell Urine 0-4 /hpf (0-5)
[2022-06-16 02:25] LABS: Amphetamines Screen Urine Negative (Negative); Barbiturates Screen Urine Negative (Negative); Benzodiazepines Screen Urine Negative (Negative); Cocaine Screen Urine Negative (Negative); Opiate Screen Urine Negative (Negative); PCP Screen Urine Negative (Negative); THC Screen Urine Positive (Negative)
[2022-06-16 02:45] VITALS: BP 147/84; PULSE 96; RESP 22; O2SAT 100
--- NOTE | 2022-06-16 02:45 | ED_ITS ---
HPI - Altered Mental Status General: Chief Complaint: Altered Mental Status Stated Complaint: ams, slurring words Time Seen by Provider: 06/16/22 00:54 History of Present Illness: 42-year-old female with a history of diabetes. She has peripheral vascular disease as well with complications of a chronic open ulcer to her right first metatarsal post amputation. She has an [id number] amputation on the left. She has a history of chronic abdominal and flank/back pain for which she presents to the emergency department frequently. Tonight, she had been to a [employer] republican. She called to her from the bathroom asking for help. He found her slurring words, and upset. He brings her to the emergency department. She has struck her head on the wheelchair and then the b ed rail intentionally several times since she has been here. She shakes her head yes and no to questions, but is not able to give more articulate answers than that. MD complaint: altered mental status and confusion Onset (ago): hour(s) Severity: moderate Consistency of symptoms: Waxing and Waning Context: other Associated symptoms: Deny homicidal ideation or suicidal ideation Review of Systems General: Reports: ROS unobtainable due to mental status (some hx taken from family) Const: Denies: fever(s) Resp: Denies: dyspnea GI: Reports: vomiting : Reports: flank pain Neuro: Reports: headache(s) Psych: Denies: suicidal ideation or homicidal ideation [facility] PFSH: Medical History Acute hyponatremia Acute renal failure Anemia of chronic disease Back pain C. difficile diarrhea Chronic abdominal pain Chronic pain Chronic pain syndrome CKD (chronic kidney disease) stage 2, GFR 60-89 ml/min baseline Cr is around 1.0 Coronary artery disease hx of stenting Depression Diabetes mellitus type 1 diagnosed age 15, history of peripheral neuropathy, gastroparesis and nephropathy Diabetic foot ulcer s/p surgical intervention and eventual amputation Diabetic gastroparesis Diabetic ophthalmopathy Foot osteomyelitis, right ALEJANDRO (generalized anxiety disorder) Gastroparesis GERD (gastroesophageal reflux disease) High anion gap metabolic acidosis Hyperglycemia Hyperlipidemia Hypertension Hyponatremia Insomnia 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 Nausea & vomiting Non-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 Psychiatric care PTSD (post-traumatic stress disorder) Self-harming behavior Self-harming behavior Septic prepatellar bursitis of left knee Suicidal ideation Suicidal ideation Toe infection UTI (urinary tract infection) Surgical History Below-knee amputation of left lower extremity H/O esophagogastroduodenoscopy (12/31/20) Bile reflux gastritis, grade B esophagitis H/O exploratory laparotomy x 3 History of amputation of right forefoot Hx of angioplasty Hx of cholecystectomy Previous section x 3 S/P coronary artery stent placement x 1 S/P percutaneous endoscopic gastrostomy (PEG) tube placement Family History Unknown Diabetes extensive, type II Other CHF (congestive heart failure) Social History Smoking and tobacco status: never smoked Quit status (tobacco): has quit using tobacco Former quit date comment: 15 yrs ago Alcohol intake: former Former alcohol use details: 15 yrs ago Household members: spouse Marital status: Sexually active: Yes (1, ) Female Reproductive History: Spontaneous abortions: No Physical Exam Const: EXAM LIMITATIONS: altered mental status GENERAL APPEARANCE: in distress, anxious and ill appearing ORIENTATION/CONSCIOUSNESS: Yes awake, Yes oriented to person and Yes confused HENMT: COMMON NORMALS: normocephalic, external ears normal and Normal external nose present HEAD & SCALP: normocephalic and abrasion (Frontal scalp) FACE & SINUS: normal facial exam; no ecchymosis and no erythema NOSE: Normal external nose present EXTERNAL EAR: Yes external ears normal TEETH & GINGIVA: Yes abnormal tooth and associated gingiva THROAT: posterior oropharynx normal Eye: COMMON NORMALS: Equal, round and reactive pupils present and EOMs intact bilaterally PUPIL: Yes Equal, round and reactive pupils present Chest: CHEST: Yes Symmetrical chest wall rise Resp: COMMON NORMALS: No use of accessory muscles and clear to auscultation bilaterally EFFORT & INSPECTION: Yes tachypneic AUSCULTATION: clear to auscultation bilaterally Cardio: COMMON NORMALS: regular rhythm RATE: tachycardic RHYTHM: regular rhythm GI: COMMON NORMALS: Soft to palpation INSPECTION: Yes normal to inspection PALPATION: Yes Soft to palpation Extremity: NARRATIVE EXTREMITY EXAM: Chronic wound to the first metatarsal head shows good granulation, no surrounding cellulitis. No edema to the extremities. Neuro: LÁZARO COMA SCALE: document GCS findings Lázaro coma scale eye opening: Spontaneous Lázaro coma scale verbal response: Words [place] coma s juju motor response: Obey commands [place] coma scale total score: 13 SENSORIUM/ORIENTATION: Yes oriented to person CRANIAL NERVES: Yes CN normal except as noted MOTOR EXAM: Normal motor muscle tone present throughout Psych: APPEARANCE: Yes unkempt ATTITUDE: Yes bizarre ACTIVITY/MOTOR BEHAVIOR: No appropriate eye contact and Yes hyperactivity SPEECH: Yes incoherent Course Vital Signs: Vital signs: Vital Signs Temperature 96.9 F L 06/16/22 00:45 Pulse Rate 99 06/16/22 03:43 Respiratory Rate 14 06/16/22 03:43 Blood Pressure 165/94 06/16/22 03:43 Pulse Oximetry 100 06/16/22 03:43 Oxygen Delivery Me thod 06/16/22 02:45 MDM - Altered Mental Status Medical Decision Making Vitals have improved significantly. Blood pressure 151/77, heart rate 99, saturations 99% respirations 18. Patient is making more sense now. She is able to enunciate her words more readily. She is answering questions appropriately. She feels improved hemoglobin is 9. Platelet count 460. White blood cell count 7.4. Her creatinine is 1.4. BUN 25. Chest x-ray is nonacute. Head CT shows a frontal scalp contusion consistent with her exam. There are no acute intracranial findings. Urinalysis is essentially negative. Ethyl alcohol is negative. Urine drug screen is positive for marijuana. With improvement in her symptoms, she will be allowed home for outpatient follow-up. Lab Data : 06/16/22 01:17 06/16/22 01:17 Radiology Impressions Chest X-Ray 06/16/22 01:04 IMPRESSION: No acute findings. Head CT 06/16/22 01:04 IMPRESSION: 1. Mild midline frontal scalp contusion/hematoma versus residual scar tissue from previous scalp injury on December 22, 2021.. 2. No acute intracranial findings. Laboratory Results WBC 7.4 10^3/uL (4.0-10.0) 06/16/22 01:17 RBC 3.70 10^6/uL (4.1-5.3) L 06/16/22 01:17 Hgb 8.9 g/dL (11.5-15.3) L 06/16/22 01:17 Hct 29.3 % (37.0-47.0) L 06/16/22 01:17 MCV 79.2 fl (81-99) L 06/16/22 01:17 MCH 24.1 pg (28.0-34.0) L 06/16/22 01:17 MCHC 30.4 g/dL (30.0-36.0) 06/16/22 01:17 RDW 15.9 % (12.1-15.1) H 06/16/22 01:17 Plt Count 460 10^3/cmm (130-400) H 06/16/22 01:17 MPV 9.4 fL (7.4-10.4) 06/16/22 01:17 Neut % (Auto) 70.2 % 06/16/22 01:17 Lymph % (Auto) 20.1 % 06/16/22 01:17 [place] % (Auto) 7.5 % 06/16/22 01:17 Eos % (Auto) 1.4 % 06/16/22 01:17 Baso % (Auto) 0.4 % 06/16/22 01:17 Neut # (Auto) 5.18 10^3/uL (1.8-7.7) 06/16/22 01:17 Lymph # (Auto) 1.5 10^3/uL (0.8-4.8) 06/16/22 01:17 [place] # (Auto) 0.6 10^3/uL (0.2-0.9) 06/16/22 01:17 Eos # (Auto) 0.1 10^3/uL (0.0-0.8) 06/16/22 01:17 Baso # (Auto) 0.0 10^3/uL (0.0-0.1) 06/16/22 01:17 Nucleated RBC % (auto) 0 % 06/16/22 01:17 Nucleated RBCs # 0.0 /100WBC 06/16/22 01:17 Sodium 138 mmol/L (136-145) 06/16/22 01:17 Potassium 4.4 mmol/L (3.5-5.1) 06/16/22 01:17 Chloride 99 mmol/L (98-107) 06/16/22 01:17 Carbon Dioxide 26 mmol/L (22-29) 06/16/22 01:17 Anion Gap 17.4 (5-19) 06/16/22 01:17 BUN 25 mg/dL (6-20) H 06/16/22 01:17 Creatinine 1.4 mg/dL (0.5-0.9) H 06/16/22 01:17 GFR Calculation 40.8 mL/min (90-130) L 06/16/22 01:17 Glucose 170 mg/dL (65-115) H 06/16/22 01:17 POC Glucose 185 mg/dL (70-110) H 06/16/22 01:19 Calculated Osmolality 294 mOsm/kg (285-295) 06/16/22 01:17 Calcium 9.5 mg/dL (8.5-10.5) 06/16/22 01:17 Total Bilirubin 0.2 mg/dL (0.15-1.2) 06/16/22 01:17 AST 18 U/L (0-32) 06/16/22 01:17 ALT 15 U/L (0-33) 06/16/22 01:17 Alkaline Phosphatase 140 U/L (35-105) H 06/16/22 01:17 Total Protein 7.3 g/dL (6.6-8.7) 06/16/22 01:17 Albumin 3.6 g/dL (3.5-5.2) 06/16/22 01:17 Globulin 3.7 g/dL (1.3-4.6) 06/16/22 01:17 Urine Color Yellow (Yellow) 06/16/22 01:41 Urine Appearance Clear (CLEAR) 06/16/22 01:41 Urine pH 6.5 (5-7) 06/16/22 01:41 Ur Specific [place] 1.015 (1.005-1.030) 06/16/22 01:41 Urine Protein 2+ (Negative) H 06/16/22 01:41 Urine Glucose (UA) 1+ (Normal) H 06/16/22 01:41 Urine Ketones Negative (Negative) 06/16/22 01:41 Urine Blood Neg (Negative) 06/16/22 01:41 Urine Nitrate Negative (Negative) 06/16/22 01:41 Urine Bilirubin Neg (Negative) 06/16/22 01:41 Urine Urobilinogen Neg mg/dL (Negative) 06/16/22 01:41 Ur Leukocyte Esterase Negative (Negative) 06/16/22 01:41 Urine RBC 0-4 /hpf (0-2) H 06/16/22 01:41 Urine WBC 5-10 /hpf (0-5) H 06/16/22 01:41 Ur Squamous Epith Cells 0-4 /hpf (0-5) H 06/16/22 01:41 Amorphous Sediment Not Reportable 06/16/22 01:41 Urine Bacteria Trace /hpf (NONE) 06/16/22 01:41 Urine Mucus Trace /hpf 06/16/22 01:41 Salicylates < 0.3 mg/dL (3-10) L 06/16/22 01:17 Urine Opiates Screen Negative ng/mL (Negative) 06/16/22 01:41 Acetaminophen < 5.0 ug/mL (10-30) L 06/16/22 01:17 Ur Barbiturates Screen Negative ng/mL (Negative) 06/16/22 01:41 Ur Phencyclidine Scrn Negative ng/mL (Negative) 06/16/22 01:41 Ur Amphetamines Screen Negative ng/mL (Negative) 06/16/22 01:41 U Benzodiazepines Scrn Negative ng/mL (Negative) 06/16/22 01:41 Urine Cocaine Screen Negative ng/mL (Negative) 06/16/22 01:41 U Marijuana (THC) Screen Positive ng/mL (Negative) H 06/16/22 01:41 Ethyl Alcohol < 10 mg/dL (0-10) 06/16/22 01:17 Discharge Plan Discharge Patient Disposition: Home Clinical Impression: Altered mental status, Vomiting Condition: Stable Prescriptions: No Action Lantus Solostar U-100 Insulin 100 unit/mL (3 mL) insulin pen 40 unit SUBCUT BEDTIME 30 Days Qty: 15 2RF (DME) Comfort EZ Pen [place] 33 gauge x 1/4 needle See Rx Instructions .ROUTE .MEDSUPPLY Qty: 100 2RF Rx Instructions: As directed (DME) Blood Glucose Test Strip See Rx Instructions .Route Qty: 100 11RF Rx Instructions: Use with meter to test 3 times a day. atorvastatin 40 mg tablet 40 mg PO DAILY 30 Days Qty: 30 1RF ropinirole 1 mg tablet 1 mg PO BEDTIME 30 Days Qty: 30 1RF amlodipine 10 mg tablet 10 mg PO DAILY 30 Days Qty: 30 1RF docusate sodium [Colace] 100 mg capsule 100 mg PO BID 30 Days Qty: 60 1RF metoprolol succinate 25 mg tablet extended release 24 hr 50 mg PO DAILY 30 Days Qty: 60 1RF cyclobenzaprine 10 mg Tablet 10 mg PO BID PRN (Reason: Muscle Spasms) 30 Days Qty: 60 1RF insulin aspart U-100 [Novolog Flexpen U-100 Insulin] 100 unit/mL (3 mL) insulin pen 10 unit SUBCUT TID spironolactone 25 mg tablet 25 mg PO BID Reglan 10 mg tablet 10 mg PO Q6H PRN (Reason: nausea and vomiting) Qty: 20 0RF hydrocodone-acetaminophen 5-325 mg tablet 1 tab PO Q8H PRN (Reason: pain, severe) Qty: 9 0RF pregabalin 150 mg capsule 150 mg PO BID Qty: 60 0RF diclofenac sodium 75 mg tablet,delayed release (DR/EC) 75 mg PO Q12H PRN (Reason: pain) Qty: 20 0RF duloxetine 30 mg capsule,delayed release(DR/EC) 30 mg PO TID Qty: 90 0RF trazodone 50 mg tablet 50 mg PO BEDTIME doxepin 10 mg capsule 10 mg PO BEDTIME promethazine 25 mg tablet 25 mg PO Q6H PRN (Reason: Nausea) Bactrim DS 800-160 mg tablet 1 tab PO BID Qty: 4 0RF Reglan 10 mg tablet 10 mg PO Q6H PRN (Reason: nausea and vomiting) Qty: 20 0RF diclofenac sodium 75 mg tablet,delayed release (DR/EC) 75 mg PO BID Qty: 30 0RF Discharge Orders: Discharge ED (Routine); Ordered 06/16/22 Ordered By: Pablito Perry Referrals: Mora Rodrigues FNP [Primary Care Provider] - Discharge Diet: Advance as tolerated and Clear Liquid Discharge Activity: Increase activity as tolerated Patient Instructions: Altered Mental Status (ED), Opioid Safety, Pain Helga gement, Vomiting - Adult Activity Restrictions/Additional Instructions: Return for worsening mental status, vomiting liquids or medications, fever greater than 100, any other concerning symptoms. Coding Level of Care Code ED Mobile Ui Designer for Chg Fwd Exam Comprehensive
[2022-06-16 03:43] VITALS: BP 165/94; PULSE 99; RESP 14; O2SAT 100
[2022-06-16 05:15] VITALS: BP 165/94; PULSE 99; RESP 14; O2SAT 100
== END 2022-06-16 05:30 | disposition home or self-care (01) ==
PROVIDERS: Emergency Provider Emergency Medicine; PCP Nurse Practitioner Family
DX: R41.82 Altered mental status, unspecified (principal); R11.11 Vomiting without nausea; Z79.4 Long term (current) use of insulin; Z87.891 Personal history of nicotine dependence; Z89.512 Acquired absence of left leg below knee; E10.22 Type 1 diabetes mellitus with diabetic chronic kidney disease; I12.9 Hypertensive chronic kidney disease with stage 1 through stage 4 chronic kidney disease, or unspecified chronic kidney disease; N18.2 Chronic kidney disease, stage 2 (mild); I25.10 Atherosclerotic heart disease of native coronary artery without angina pectoris; E78.5 Hyperlipidemia, unspecified
CPT/HCPCS: 36416; 70450; 71045; 80053; 80306; 80307; 81001; 82962; 85025; 93005; 93010; 96374; 99285; J1630

== ENCOUNTER 2022-06-19 09:08 | Emergency (ER) | payer MEDICAID, SELFPAY ==
[2022-06-19] VITALS (45 sets, daily range): BP systolic 120–177; BP diastolic 73–115; PULSE 87–103; RESP 12–39; TEMP 36.6; O2SAT 76–100; BMI 23.6
--- NOTE | 2022-06-19 09:22 | ECG_ITS ---
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 Measurements Intervals [place] Rate: 97 P: -3 NH: 131 QRS: -7 QRSD: 91 T: 70 QT: 330 QTc: 420 Interpretive Statements SINUS RHYTHM MINIMAL ST DEPRESSION [0.025+ mV ST DEPRESSION] Compared to ECG 06/16/2022 02:14:05 ST (T wave) deviation now present Electronically Signed On 06-19-2022 21:43:31 CDT by Joseluis Tracy M.D. [email or web address]
--- NOTE | 2022-06-19 09:33 | XRR_ITS ---
PROCEDURE INFORMATION: Exam: XR Chest Exam date and time: 06/19/2022 9:58 AM Age: 42 years old Clinical indication: Radiating; Prior surgery; Surgery type: Gb; Patient HX: History--chest pain since last night. PT states that the pain is in the center of chest and radiates to her back and down RT arm. TECHNIQUE: Imaging protocol: Radiologic exam of the chest. Views: 1 view. COMPARISON: CR (CHEST, ) 06/16/2022 1:54 AM FINDINGS: Lungs: Unremarkable. No consolidation. Pleural spaces: Unremarkable. No pleural effusion. No pneumothorax. Heart/Mediastinum: Unremarkable. No cardiomegaly. Bones/joints: Unremarkable. XR/XR chest 1V portable [id number] IMPRESSION: No acute findings.
--- NOTE | 2022-06-19 09:34 | ED_ITS ---
HPI - Chest Pain General: Chief Complaint: Chest Pain Stated Complaint: cp Time Seen by Provider: 06/19/22 09:12 Source: patient Mode of arrival: ambulatory History of Present Illness: 42-year-old female presents to the emergency room with complaints of mid to right sided chest pain. It began last night. She has not had any vomiting or diarrhea. No radiation of the chest pain. No associated shortness of breath or diaphoresis. Patient is diabetic she has a history of peripheral vascular disease and smokes. She has a known history of coronary disease with previous stenting. Her last stenting was 2 years ago at an outside hospital. She has not taken anything to relieve the discomfort. MD complaint: chest pain Pertinent past history: coronary artery disease Onset (ago): hour(s) Timing of current episode: episodic Prior episodes: Yes Onset: during rest Pain location: substernal and right chest Pain radiation: none Severity: moderate Quality: aching and heaviness Relieving factors: nothing Exacerbating factors: nothing Associated symptoms: Deny abdominal pain, diaphoresis, dyspnea, fever(s), leg edema, nausea, palpitations, sense of impending doom, syncope or vomiting Treatment prior to arrival: none Risk Factors: Coronary artery disease risk factors: diabetes, smoking history, hyperlipidemia and hypertension Review of Systems Const: Reports: body aches, fatigue and malaise; Denies: fever(s), chills or diaphoresis ENMT: Denies: throat pain, ear or mastoid pain, nasal discharge or nasal congestion Card: Reports: chest pain; Denies: palpitations, irregular heart rhythm, edema or syncope Resp: Denies: dyspnea GI: Denies: abdominal pain, nausea or vomiting : Denies: flank pain, difficulty voiding, dysuria, urinary frequency or urinary urgency Skin/Breast: Denies: rash or pruritus PFS ED PFSH: Medical History Acute hyponatremia Acute renal failure Anemia of chronic disease Back pain C. difficile diarrhea Chronic abdominal pain Chronic pain Chronic pain syndrome CKD (chronic kidney disease) stage 2, GFR 60-89 ml/min baseline Cr is around 1.0 Coronary artery disease hx of stenting Depression Diabetes mellitus type 1 diagnosed age 15, history of peripheral neuropathy, gastroparesis and nephropathy Diabetic foot ulcer s/p surgical intervention and eventual amputation Diabetic gastroparesis Diabetic ophthalmopathy Foot osteomyelitis, right ALEJANDRO (generalized anxiety disorder) Gastroparesis GERD (gastroesophageal reflux disease) High anion gap metabolic acidosis Hyperglycemia Hyperlipidemia Hypertension Hyponatremia Insomnia 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 Nausea & vomiting Non-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 Psychiatric care PTSD (post-traumatic stress disorder) Self-harming behavior Self-harming behavior Septic prepatellar bursitis of left knee Suicidal ideation Suicidal ideation Toe infection UTI (urinary tract infection) Surgical History Below-knee amputation of left lower extremity H/O esophagogastroduodenoscopy (12/31/20) Bile reflux gastritis, grade B esophagitis H/O exploratory laparotomy x 3 History of amputation of right forefoot Hx of angioplasty Hx of cholecystectomy Previous section x 3 S/P coronary artery stent placement x 1 S/P percutaneous endoscopic gastrostomy (PEG) tube placement Family History Unknown Diabetes extensive, type II Other CHF (congestive heart failure) Social History Smoking and tobacco status: never smoked Quit status (tobacco): has quit using tobacco Former quit date comment: 15 yrs ago Alcohol intake: former Former alcohol use details: 15 yrs ago Household members: spouse Marital status: Sexually active: Yes (1, ) Female Reproductive History: Spontaneous abortions: No Physical Exam Const: COMMON NORMALS: no acute distress GENERAL APPEARANCE: cooperative and comfortable ORIENTATION/CONSCIOUSNESS: Yes awake, Yes oriented to person, Yes oriented to place and Yes oriented to time HENMT: COMMON NORMALS: normocephalic, atraumatic and hearing grossly normal bilaterally HEAD & SCALP: normocephalic and atraumatic Resp: COMMON NORMALS: normal respiratory effort, No retractions, No use of accessory muscles and clear to auscultation bilaterally AUSCULTATION: clear to auscultation bilaterally Cardio: COMMON NORMALS: regular rate, regular rhythm and No murmurs present (Cardio) RATE: regular rate RHYTHM: regular rhythm GI: COMMON NORMALS: Soft to palpation and No hepatosplenomegaly present AUSCULTATION: Yes normoactive bowel sounds PALPATION: Yes Soft to palpation, No Tenderness to palpation present (GI), No Guarding due to palpation present (GI) and Yes No hepatosplenomegaly present Extremity: COMMON NORMALS: normal to inspection, capillary refill normal, no clubbing, cyanosis or edema, no calf tenderness and no pedal edema Neuro: SENSORIUM/ORIENTATION: Yes oriented to person, Yes oriented to place and Yes oriented to time Skin: COMMON NORMALS: no rashes or lesions noted GENERAL SKIN EXAM: no rashes or lesions noted Course Vital Signs: Vital signs: Vital Signs Temperature 97.9 F 06/19/22 09:11 Pulse Rate 93 06/19/22 13:50 Respiratory Rate 18 06/19/22 13:50 Blood Pressure 162/115 06/19/22 13:30 Pulse Oximetry 100 06/19/22 14:45 Oxygen Delivery Me thod 06/19/22 09:11 MDM - Chest Pain Medical Decision Making EKG is unremarkable no acute ST changes noted serial troponins no significant delta other labs and chest x-ray reviewed. Patient's symptoms are resolved. Discharge her home we will set up follow-up with cardiology as well as outpatient Lexiscan sestamibi stress test also add aspirin 81 mg daily and isosorbide mononitrate once daily. Medical Records I reviewed the patient's medical records. Lab Data I reviewed the patient's lab results. : 06/19/22 11:05 06/19/22 11:05 Radiology Impressions Chest X-Ray 06/19/22 09:33 IMPRESSION: No acute findings. Laboratory Results WBC 6.2 10^3/uL (4.0-10.0) 06/19/22 11:05 RBC 3.89 10^6/uL (4.1-5.3) L 06/19/22 11:05 Hgb 9.2 g/dL (11.5-15.3) L 06/19/22 11:05 Hct 30.4 % (37.0-47.0) L 06/19/22 11:05 MCV 78.1 fl (81-99) L 06/19/22 11:05 MCH 23.7 pg (28.0-34.0) L 06/19/22 11:05 MCHC 30.3 g/dL (30.0-36.0) 06/19/22 11:05 RDW 15.8 % (12.1-15.1) H 06/19/22 11:05 Plt Count 442 10^3/cmm (130-400) H 06/19/22 11:05 MPV 8.5 fL (7.4-10.4) 06/19/22 11:05 Neut % (Auto) 72.3 % 06/19/22 11:05 Lymph % (Auto) 19.3 % 06/19/22 11:05 [place] % (Auto) 5.9 % 06/19/22 11:05 Eos % (Auto) 1.5 % 06/19/22 11:05 Baso % (Auto) 0.7 % 06/19/22 11:05 Neut # (Auto) 4.45 10^3/uL (1.8-7.7) 06/19/22 11:05 Lymph # (Auto) 1.2 10^3/uL (0.8-4.8) 06/19/22 11:05 [place] # (Auto) 0.4 10^3/uL (0.2-0.9) 06/19/22 11:05 Eos # (Auto) 0.1 10^3/uL (0.0-0.8) 06/19/22 11:05 Baso # (Auto) 0.0 10^3/uL (0.0-0.1) 06/19/22 11:05 Nucleated RBC % (auto) 0 % 06/19/22 11:05 Nucleated RBCs # 0.0 /100WBC 06/19/22 11:05 Sodium 135 mmol/L (136-145) L 06/19/22 11:05 Potassium 3.9 mmol/L (3.5-5.1) 06/19/22 11:05 Chloride 100 mmol/L (98-107) 06/19/22 11:05 Carbon Dioxide 21 mmol/L (22-29) L 06/19/22 11:05 Anion Gap 17.9 (5-19) 06/19/22 11:05 BUN 13 mg/dL (6-20) 06/19/22 11:05 Creatinine 1.0 mg/dL (0.5-0.9) H 06/19/22 11:05 GFR Calculation 60.2 mL/min (90-130) L 06/19/22 11:05 Glucose 162 mg/dL (65-115) H 06/19/22 11:05 Calculated Osmolality 284 mOsm/kg (285-295) L 06/19/22 11:05 Calcium 9.4 mg/dL (8.5-10.5) 06/19/22 11:05 Total Bilirubin 0.3 mg/dL (0.15-1.2) 06/19/22 11:05 AST 12 U/L (0-32) 06/19/22 11:05 ALT 11 U/L (0-33) 06/19/22 11:05 Alkaline Phosphatase 144 U/L (35-105) H 06/19/22 11:05 Troponin T Baseline 38 ng/L (0-10) H 06/19/22 11:05 Troponin T 120 Minute 40.27 ng/L (0-10) H 06/19/22 13:33 Delta Troponin T 2.27 ABS# (0-10) 06/19/22 13:33 Total Protein 7.4 g/dL (6.6-8.7) 06/19/22 11:05 Albumin 3.6 g/dL (3.5-5.2) 06/19/22 11:05 Globulin 3.8 g/dL (1.3-4.6) 06/19/22 11:05 Discharge Plan Discharge Patient Disposition: Home Clinical Impression: Atypical chest pain Condition: Stable Prescriptions: New aspirin 81 mg tablet,delayed release (DR/EC) 81 mg PO DAILY Qty: 30 0RF isosorbide mononitrate 30 mg tablet extended release 24 hr 30 mg PO DAILY Qty: 30 0RF No Action (DME) Comfort EZ Pen [place] 33 gauge x 1/4 needle See Rx Instructions .ROUTE .MEDSUPPLY Qty: 100 2RF Rx Instructions: As directed (DME) Blood Glucose Test Strip See Rx Instructions .Route Qty: 100 11RF Rx Instructions: Use with meter to test 3 times a day. ropinirole 1 mg tablet 1 mg PO BEDTIME 30 Days Qty: 30 1RF pregabalin 150 mg capsule 150 mg PO BID Qty: 60 0RF diclofenac sodium 75 mg tablet,delayed release (DR/EC) 75 mg PO Q12H PRN (Reason: pain) Qty: 20 0RF promethazine 25 mg tablet 25 mg PO Q6H PRN (Reason: Nausea) metoclopramide HCl [Reglan] 10 mg tablet 10 mg PO Q6H PRN (Reason: nausea and vomiting) Qty: 20 0RF cyclobenzaprine 10 mg tablet 10 mg PO TID PRN (Reason: Muscle Spasms) Lantus Solostar U-100 Insulin 100 unit/mL (3 mL) insulin pen 20 unit SUBCUT BEDTIME Humalog KwikPen Insulin 200 unit/mL (3 mL) Insulin Pen See Rx Instructions .ROUTE .COMPLEX Rx Instructions: sliding scale tid (max of 30 units per day) ibuprofen 200 mg Tablet 800 mg PO Q8H PRN (Reason: Pain) ondansetron 4 mg tablet,disintegrating 4 mg PO Q8H PRN (Reason: Nausea And Vomiting) Discharge Orders: Discharge ED (Routine); Ordered 06/19/22 Ordered By: Adama Ceballos Referrals: Mora Rodrigues, WORK FORCE ADVISOR [Primary Care Provider] - Discharge Diet: Usual diet Discharge Activity: Limit activity as instructed Patient Instructions: Opioid Safety, Pain Management Activity Restrictions/Additional Instructions: Case management will make arrangements for you to follow-up with a Lexiscan sestamibi stress test and cardiology clinic follow-up. Coding Level of Care Code ED Pediatric Dental Hygienist for Chg Fwd Exam Detailed
[2022-06-19] MEDS: aspirin 81 mg Chew Tablet 324 MG PO (09:42)
[2022-06-19] MEDS: nitroglycerin 1 gm/inch oint Pkt 1 INCH TOPICAL (09:43)
[2022-06-19 11:10] LABS: Basophils % 0.7 %; Eosinophils # 0.1 10^3/uL (0.0-0.8); Eosinophils % 1.5 %; Hematocrit 30.4 % (37.0-47.0); Hemoglobin 9.2 g/dL (11.5-15.3); Lymphocytes # 1.2 10^3/uL (0.8-4.8); Lymphocytes % 19.3 %; Mean Corpuscular HGB Conc 30.3 g/dL (30.0-36.0); Mean Corpuscular Hemoglobin 23.7 pg (28.0-34.0); Mean Corpuscular Volume 78.1 fl (81-99); Mean Platelet Volume 8.5 fL (7.4-10.4); Monocytes # 0.4 10^3/uL (0.2-0.9); Monocytes % 5.9 %; Neutrophils # 4.45 10^3/uL (1.8-7.7); Neutrophils % 72.3 %; Nucleated Red Blood Cells % 0 %; Platelet Count 442 10^3/cmm (130-400); Red Blood Count 3.89 10^6/uL (4.1-5.3); Red Cell Distribution Width 15.8 % (12.1-15.1); White Blood Count 6.2 10^3/uL (4.0-10.0)
--- NOTE | 2022-06-19 11:20 | ECG_ITS ---
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 Measurements Intervals [place] Rate: 93 P: 15 KS: 129 QRS: 20 QRSD: 90 T: 79 QT: 339 QTc: 422 Interpretive Statements SINUS RHYTHM Compared to ECG 06/19/2022 09:22:05 ST (T wave) deviation no longer present Electronically Signed On 06-19-2022 21:53:23 CDT by Joseluis Tracy M.D. [id number]
[2022-06-19 11:33] LABS: Troponin(5th) Baseline 38 ng/L (0-10)
[2022-06-19 11:35] LABS: Alanine Aminotransferase 11 U/L (0-33); Albumin Level 3.6 g/dL (3.5-5.2); Alkaline Phosphatase 144 U/L (35-105); Anion Gap 17.9 (5-19); Aspartate Amino Transferase 12 U/L (0-32); Blood Urea Nitrogen 13 mg/dL (6-20); Calcium 9.4 mg/dL (8.5-10.5); Carbon Dioxide 21 mmol/L (22-29); Chloride 100 mmol/L (98-107); Globulin 3.8 g/dL (1.3-4.6); Glomerular Filtration Rate 60.2 mL/min (90-130); Glucose 162 mg/dL (65-115); Osmolality Calculated 284 mOsm/kg (285-295); Potassium 3.9 mmol/L (3.5-5.1); Sodium 135 mmol/L (136-145); Total Bilirubin 0.3 mg/dL (0.15-1.2); Total Protein 7.4 g/dL (6.6-8.7)
[2022-06-19 13:58] LABS: Troponin 5 2HR 40.27 ng/L (0-10)
[2022-06-19 14:00] LABS: Troponin 5 2HR Delta 2.27 ABS# (0-10)
--- NOTE | 2022-06-20 10:53 | DCPLANNER ---
Addendum entered by Audrey Estrada 08/24/22 11:41: Patient had a follow up appointment scheduled with heart care - patient did attend appointment. Addendum entered by Audrey Estrada 08/07/22 15:46: Patient had a stress test scheduled for 07.31.22 - patient did not attend Addendum entered by Audrey Estrada 08/02/22 14:33: Patient has a follow up appointment scheduled for Sunday, August 22, 2021 at 3:[address] Darling. Clinic will call patient with appointment information. Addendum entered by Audrey Estrada 07/11/22 14:43: casework manager received the following message from [facility] regarding follow up appointment: Attempted to call. Left vm to call back. Mailed patient letter appt on 08/20/22 @ 10:15. Thank you. On 06/20/22 @ 11:02 Gabbi Day Wrote To Heart Care Front Office Attempted to call patient. No answer left vm to call back. Patient has a stress test scheduled for Sunday, July 31, 2022 at 9:15. Centralized scheduling will call patient with appointment information. Addendum entered by Audrey Estrada 06/20/22 10:54: casework manager also had message to schedule an outpatient stress test for patient. casework manager faxed signed order to centralized scheduling, who will call patient with appointment information. Original Note: casework manager had message to schedule a follow up appointment for patient with cardiology. casework manager sent patients information to the front office staff at [facility]. Patients information will be printed and reviewed. Clinic will call patient with appointment information.
== END 2022-06-19 15:15 | disposition home or self-care (01) ==
PROVIDERS: Emergency Provider Family Medicine; PCP Nurse Practitioner Family
DX: R07.89 Other chest pain (principal); Z79.4 Long term (current) use of insulin; Z87.891 Personal history of nicotine dependence; Z89.512 Acquired absence of left leg below knee; I12.9 Hypertensive chronic kidney disease with stage 1 through stage 4 chronic kidney disease, or unspecified chronic kidney disease; E10.22 Type 1 diabetes mellitus with diabetic chronic kidney disease; N18.2 Chronic kidney disease, stage 2 (mild); I25.10 Atherosclerotic heart disease of native coronary artery without angina pectoris; E78.5 Hyperlipidemia, unspecified
CPT/HCPCS: 36415; 71045; 80053; 84484; 85025; 93005; 99285

== ENCOUNTER 2022-06-20 18:33 | Emergency (ER) | payer MEDICAID, SELFPAY ==
[2022-06-20 18:50] VITALS: BP 127/75; PULSE 105; RESP 16; TEMP 37.2; O2SAT 99; BMI 23.6
--- NOTE | 2022-06-20 22:14 | XRR_ITS ---
PROCEDURE INFORMATION: Exam: XR Chest Exam date and time: 06/20/2022 10:37 PM Age: 42 years old Clinical indication: Pain; Chest pressure; Additional info: Cp TECHNIQUE: Imaging protocol: Radiologic exam of the chest. Views: 1 view. COMPARISON: CR XR chest 1V portable [id number] 06/19/2022 9:58 AM FINDINGS: Lungs: No apparent consolidation. Pleural spaces: Still no pneumothorax or apparent pleural fluid. Heart/Mediastinum: See Vasculature finding. Vasculature: Continued short stent over the left upper heart. Mild cardiomegaly still likely. Continued mild aortic elongation. Bones/joints: No suggestion of acute bony disease. Soft tissues: Haziness over the left lower chest possibly due to chest wall structures. Intraperitoneal space: Surgical clip in the left upper abdomen. XR/XR chest 1V portable [id number] IMPRESSION: No apparent acute disease. Continued mild cardiomegaly and a stent over the left upper heart likely positioned within a coronary artery. Other findings detailed above.
--- NOTE | 2022-06-20 22:14 | ECG_ITS ---
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 Measurements Intervals [place] Rate: 87 P: 8 AK: 113 QRS: 5 QRSD: 90 T: 57 QT: 360 QTc: 433 Interpretive Statements SINUS RHYTHM WITH SHORT AK INTERVAL Compared to ECG 06/19/2022 11:20:44 Short AK interval now present Electronically Signed On 06-21-2022 15:02:41 CDT by Compa Frances M.D. [email or web address]/[id number]
--- NOTE | 2022-06-20 23:21 | ED_ITS ---
HPI - Chest Pain General: Chief Complaint: Chest Pain Stated Complaint: cp Time Seen by Provider: 06/20/22 22:16 Source: patient Mode of arrival: ambulatory Limitations: no limitations History of Present Illness: 42-year-old female who states has been having chest pain today she has been seen here 2 months for chest pain. She states that sharp in nature. States the pain has been going on for days she denies any shortness of breath she denies any vomiting or diarrhea. Associated symptoms: Deny abdominal pain, dyspnea, fever(s), nausea or vomiting Review of Systems Const: Denies: fever(s), chills, body aches or change in appetite Eyes: Denies: blurry vision or eye discomfort ENMT: Denies: throat pain or dental pain Card: Reports: chest pain Resp: Denies: dyspnea GI: Denies: abdominal pain, nausea, vomiting or diarrhea : Denies: dysuria Musc: Denies: neck pain or back pain Skin/Breast: Denies: rash Neuro: Denies: headache(s) Psych: Denies: depression Keith/Lymph: Denies: easy bruising All/Imm: Denies: urticaria PFSH ED PFSH: Medical History Acute hyponatremia Acute renal failure Anemia of chronic disease Back pain C. difficile diarrhea Chronic abdominal pain Chronic pain Chronic pain syndrome CKD (chronic kidney disease) stage 2, GFR 60-89 ml/min baseline Cr is around 1.0 Coronary artery disease hx of stenting Depression Diabetes mellitus type 1 diagnosed age 15, history of peripheral neuropathy, gastroparesis and nephropathy Diabetic foot ulcer s/p surgical intervention and eventual amputation Diabetic gastroparesis Diabetic ophthalmopathy Foot osteomyelitis, right ALEJANDRO (generalized anxiety disorder) Gastroparesis GERD (gastroesophageal reflux disease) High anion gap metabolic acidosis Hyperglycemia Hyperlipidemia Hypertension Hyponatremia Insomnia 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 Nausea & vomiting Non-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 Psychiatric care PTSD (post-traumatic stress disorder) Self-harming behavior Self-harming behavior Septic prepatellar bursitis of left knee Suicidal ideation Suicidal ideation Toe infection UTI (urinary tract infection) Surgical History Below-knee amputation of left lower extremity H/O esophagogastroduodenoscopy (12/31/20) Bile reflux gastritis, grade B esophagitis H/O exploratory laparotomy x 3 History of amputation of right forefoot Hx of angioplasty Hx of cholecystectomy Previous section x 3 S/P coronary artery stent placement x 1 S/P percutaneous endoscopic gastrostomy (PEG) tube placement Family History Unknown Diabetes extensive, type II Other CHF (congestive heart failure) Social History Smoking and tobacco status: never smoked Quit status (tobacco): has quit using tobacco Former quit date comment: 15 yrs ago Alcohol intake: former Former alcohol use details: 15 yrs ago Household members: spouse Marital status: Sexually active: Yes (1, ) Female Reproductive History: Spontaneous abortions: No Physical Exam Const: COMMON NORMALS: no acute distress, patient oriented x3 and healthy appearing HENMT: COMMON NORMALS: normocephalic and atraumatic HEAD & SCALP: normocephalic and atraumatic Eye: COMMON NORMALS: Equal, round and reactive pupils present and EOMs intact bilaterally PUPIL: Yes Equal, round and reactive pupils present Neck/C-Spine: COMMON NORMALS: full ROM and supple Chest: COMMONS NORMALS: normal inspection of the chest and normal palpation of entire chest wall Resp: COMMON NORMALS: normal respiratory effort, No retractions, No use of accessory muscles and clear to auscultation bilaterally AUSCULTATION: clear to auscultation bilaterally Cardio: COMMON NORMALS: regular rate, regular rhythm and No murmurs present (Cardio) RATE: regular rate RHYTHM: regular rhythm GI: COMMON NORMALS: Normal to inspection, nondistended, normoactive bowel sounds present, Soft to palpation, non-tender and no masses PALPATION: Yes Soft to palpation Extremity: COMMON NORMALS: normal to inspection and full ROM Neuro: COMMON NORMALS: patient oriented x3, moves all extremities and no focal motor deficits Psych: COMMON NORMALS: mental status grossly normal, Normal thought process present and cooperative THOUGHT PROCESS: Normal thought process present Skin: COMMON NORMALS: no rashes or lesions noted and no wounds GENERAL SKIN EXAM: no rashes or lesions noted Course Vital Signs: Vital signs: Vital Signs Temperature 98.9 F 06/20/22 18:50 Pulse Rate 105 H 06/20/22 18:50 Respiratory Rate 16 06/20/22 18:50 Blood Pressure 127/75 06/20/22 18:50 Pulse Oximetry 99 06/20/22 18:50 Oxygen Delivery Me thod 06/20/22 18:50 MDM - Chest Pain Medical Decision Making Patient presents here with chest pain she has been seen here multiple times in the past for the same she is seen yesterday had a normal work-up EKG x-ray here is normal she stable for discharge she is to follow-up and return if worsening. Lab Data Radiology Impressions Chest X-Ray 06/20/22 22:14 IMPRESSION: No apparent acute disease. Continued mild cardiomegaly and a stent over the left upper heart likely positioned within a coronary artery. Other findings detailed above. EKG Data EKG 1: I personally reviewed and interpreted this EKG as follows: EKG interpretation date: 06/20/22 EKG interpretation time: 23:15 Interpretation: nsr hr [address] or t wave abnormalities qrs 90 qtc 404 Discharge Plan Discharge Patient Disposition: Home Clinical Impression: Chest pain Condition: Stable Prescriptions: No Action (DME) Comfort EZ Pen [place] 33 gauge x 1/4 needle See Rx Instructions .ROUTE .MEDSUPPLY Qty: 100 2RF Rx Instructions: As directed (DME) Blood Glucose Test Strip See Rx Instructions .Route Qty: 100 11RF Rx Instructions: Use with meter to test 3 times a day. ropinirole 1 mg tablet 1 mg PO BEDTIME 30 Days Qty: 30 1RF pregabalin 150 mg capsule 150 mg PO BID Qty: 60 0RF diclofenac sodium 75 mg tablet,delayed release (DR/EC) 75 mg PO Q12H PRN (Reason: pain) Qty: 20 0RF promethazine 25 mg tablet 25 mg PO Q6H PRN (Reason: Nausea) metoclopramide HCl [Reglan] 10 mg tablet 10 mg PO Q6H PRN (Reason: nausea and vomiting) Qty: 20 0RF cyclobenzaprine 10 mg tablet 10 mg PO TID PRN (Reason: Muscle Spasms) Lantus Solostar U-100 Insulin 100 unit/mL (3 mL) insulin pen 20 unit SUBCUT BEDTIME Humalog KwikPen Insulin 200 unit/mL (3 mL) Insulin Pen See Rx Instructions .ROUTE .COMPLEX Rx Instructions: sliding scale tid (max of 30 units per day) ibuprofen 200 mg Tablet 800 mg PO Q8H PRN (Reason: Pain) ondansetron 4 mg tablet,disintegrating 4 mg PO Q8H PRN (Reason: Nausea And Vomiting) aspirin 81 mg tablet,delayed release (DR/EC) 81 mg PO DAILY Qty: 30 0RF isosorbide mononitrate 30 mg tablet extended release 24 hr 30 mg PO DAILY Qty: 30 0RF Discharge Orders: Discharge ED (Routine); Ordered 06/20/22 Ordered By: Donavon Delaney Referrals: Mora Rodrigues FNP [Primary Care Provider] - Kenna Darling MD [Physician] - 1-3 days Discharge Diet: Advance as tolerated Discharge Activity: Resume usual activity Patient Instructions: Chest Pain (ED) Coding Level of Care Code ED Calender Wind Up Tender for Tracig Fwd Exam Comprehensive
[2022-06-20] MEDS: ketorolac 30 mg/mL INJ 15 MG IVP (23:40)
[2022-06-20] MEDS: LORazepam 1 mg Tablet PO (23:40)
--- NOTE | 2022-06-21 12:31 | DCPLANNER ---
managed care manager had message to schedule a follow up appointment for patient with cardiology. managed care manager had a message from patients visit on 06.19.22, case management specialist ordered an outpatient stress test and made a referral to cardiology from that visit. Please follow the visit from 06.19.22 for updated information of appointments scheduled.
== END 2022-06-20 23:55 | disposition home or self-care (01) ==
PROVIDERS: Emergency Provider Emergency Medicine; PCP Nurse Practitioner Family
DX: R07.9 Chest pain, unspecified (principal); Z79.82 Long term (current) use of aspirin; Z79.4 Long term (current) use of insulin; Z87.891 Personal history of nicotine dependence; Z89.512 Acquired absence of left leg below knee; I12.9 Hypertensive chronic kidney disease with stage 1 through stage 4 chronic kidney disease, or unspecified chronic kidney disease; E10.22 Type 1 diabetes mellitus with diabetic chronic kidney disease; N18.2 Chronic kidney disease, stage 2 (mild); I25.10 Atherosclerotic heart disease of native coronary artery without angina pectoris; E78.5 Hyperlipidemia, unspecified
CPT/HCPCS: 71045; 93005; 96374; 99284; J1885

== ENCOUNTER 2022-06-26 10:41 | Emergency (ER) | payer MEDICAID, SELFPAY ==
[2022-06-26 10:42] VITALS: BP 168/92; PULSE 104; RESP 19; TEMP 36.8; O2SAT 99; BMI 23.6
--- NOTE | 2022-06-26 10:49 | ECG_ITS ---
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 Measurements Intervals [place] Rate: 104 P: 14 GA: 134 QRS: 2 QRSD: 94 T: 71 QT: 325 QTc: 429 Interpretive Statements SINUS TACHYCARDIA ABNORMAL RHYTHM ECG Compared to ECG 06/20/2022 23:15:09 Sinus rhythm no longer present Short [place] interval no longer present Electronically Signed On 06-26-2022 20:58:02 INDUSTRY OPERATIONS INVESTIGATOR by Joseluis Tracy M.D. [id number]
[2022-06-26 11:15] VITALS: BP 167/94; PULSE 94; RESP 18
--- NOTE | 2022-06-26 11:16 | XRR_ITS ---
PROCEDURE INFORMATION: Exam: XR Chest Exam date and time: 06/26/2022 12:24 PM Age: 42 years old Clinical indication: Dyspnea TECHNIQUE: Imaging protocol: Radiologic exam of the chest. Views: 1 view. COMPARISON: CR (CHEST, ) 06/20/2022 10:37 PM FINDINGS: Lungs: The lung parenchyma is clear. Pleural spaces: No pneumothorax. No pleural effusion. Heart/Mediastinum: The cardiomediastinal silhouette is within normal limits. Coronary stent noted. Bones/joints: Unremarkable. XR/XR chest 1V portable [id number] IMPRESSION: No acute cardiopulmonary abnormality.
[2022-06-26 11:30] VITALS: BP 165/108; PULSE 93; RESP 15; O2SAT 100
[2022-06-26 11:45] VITALS: PULSE 92; RESP 19
[2022-06-26 12:00] VITALS: PULSE 98; RESP 20; O2SAT 100
[2022-06-26] MEDS: ketorolac 30 mg/mL INJ IM (12:05)
--- NOTE | 2022-06-26 13:02 | ED_ITS ---
HPI - Chest Pain General: Chief Complaint: Chest Pain Stated Complaint: SOB/CP Time Seen by Provider: 06/26/22 10:55 Source: patient Mode of arrival: ambulatory History of Present Illness: 42-year-old female presents with chest pain. Patient has been seen multiple times with complaints of chest pain all of her work-ups have been negative. Pain is in the right side of the chest is reproducible and worse when she takes a deep breath no fever sweats or chills no productive cough. We prescribed her medications previously for this but she has not been able to get them particularly we had given her Lyrica she tells me that her insurance will pay for it until her primary care submits it with a prior authorization. MD complaint: chest pain Timing of current episode: episodic Onset: during rest Pain location: right chest Pain radiation: none Quality: sharp Relieving factors: nothing Exacerbating factors: inspiration and palpation Associated symptoms: Deny abdominal pain, diaphoresis, dyspnea, fever(s), leg edema, nausea, palpitations, sense of impending doom, syncope or vomiting Treatment prior to arrival: none Review of Systems Const: Denies: fever(s) or diaphoresis ENMT: Denies: throat pain, ear or mastoid pain, nasal discharge or nasal congestion Card: Denies: palpitations or syncope Resp: Denies: dyspnea GI: Denies: abdominal pain, nausea or vomiting : Denies: flank pain, difficulty voiding, dysuria, urinary frequency or urinary urgency Skin/Breast: Denies: rash or pruritus PFSH ED PFSH: Medical History Acute hyponatremia Acute renal failure Anemia of chronic disease Back pain C. difficile diarrhea Chronic abdominal pain Chronic pain Chronic pain syndrome CKD (chronic kidney disease) stage 2, GFR 60-89 ml/min baseline Cr is around 1.0 Coronary artery disease hx of stenting Depression Diabetes mellitus type 1 diagnosed age 15, history of peripheral neuropathy, gastroparesis and nephropathy Diabetic foot ulcer s/p surgical intervention and eventual amputation Diabetic gastroparesis Diabetic ophthalmopathy Foot osteomyelitis, right ALEJANDRO (generalized anxiety disorder) Gastroparesis GERD (gastroesophageal reflux disease) High anion gap metabolic acidosis Hyperglycemia Hyperlipidemia Hypertension Hyponatremia Insomnia 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 Nausea & vomiting Non-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 Psychiatric care PTSD (post-traumatic stress disorder) Self-harming behavior Self-harming behavior Septic prepatellar bursitis of left knee Suicidal ideation Suicidal ideation Toe infection UTI (urinary tract infection) Surgical History Below-knee amputation of left lower extremity H/O esophagogastroduodenoscopy (12/31/20) Bile reflux gastritis, grade B esophagitis H/O exploratory laparotomy x 3 History of amputation of right forefoot Hx of angioplasty Hx of cholecystectomy Previous section x 3 S/P coronary artery stent placement x 1 S/P percutaneous endoscopic gastrostomy (PEG) tube placement Family History Unknown Diabetes extensive, type II Other CHF (congestive heart failure) Social History Smoking and tobacco status: never smoked Quit status (tobacco): has quit using tobacco Former quit date comment: 15 yrs ago Alcohol intake: former Former alcohol use details: 15 yrs ago Household members: spouse Marital status: Sexually active: Yes (1, ) Female Reproductive History: Spontaneous abortions: No Physical Exam Const: COMMON NORMALS: no acute distress GENERAL APPEARANCE: cooperative and comfortable ORIENTATION/CONSCIOUSNESS: Yes awake, Yes oriented to person, Yes oriented to place and Yes oriented to time HENMT: COMMON NORMALS: normocephalic, atraumatic and hearing grossly normal bilaterally HEAD & SCALP: normocephalic and atraumatic Resp: COMMON NORMALS: normal respiratory effort, No retractions, No use of accessory muscles and clear to auscultation bilaterally AUSCULTATION: clear to auscultation bilaterally Cardio: COMMON NORMALS: regular rate, regular rhythm and No murmurs present (Cardio) RATE: regular rate RHYTHM: regular rhythm GI: COMMON NORMALS: Soft to palpation and No hepatosplenomegaly present AUSCULTATION: Yes normoactive bowel sounds PALPATION: Yes Soft to palpation, No Tenderness to palpation present (GI), No Guarding due to palpation present (GI) and Yes No hepatosplenomegaly present Extremity: COMMON NORMALS: normal to inspection, capillary refill normal, no clubbing, cyanosis or edema, no calf tenderness and no pedal edema Neuro: SENSORIUM/ORIENTATION: Yes oriented to person, Yes oriented to place and Yes oriented to time Skin: COMMON NORMALS: no rashes or lesions noted GENERAL SKIN EXAM: no rashes or lesions noted Course Vital Signs: Vital signs: Vital Signs Temperature 98.3 F 06/26/22 10:42 Pulse Rate 98 06/26/22 12:00 Respiratory Rate 20 H 06/26/22 12:00 Blood Pressure 165/108 06/26/22 11:30 Pulse Oximetry 100 06/26/22 12:00 Oxygen Delivery Me thod 06/26/22 12:00 Oxygen Flow Rate 3 06/26/22 10:42 MDM - Chest Pain Medical Decision Making No acute changes on EKG chest x-ray normal pain reproducible deep palpation and deep inspiration. Patient has had multiple work-ups in the past. Encouraged her once again to follow-up with her primary care think [place] would be helpful she probably will need to go back to the pain clinic she had previously been on is no longer able to attend that particular clinic. Discharge home. No emergent condition present at this time. Medical Records I reviewed the patient's medical records. Lab Data I reviewed the patient's lab results. Radiology Impressions Chest X-Ray 06/26/22 11:16 IMPRESSION: No acute cardiopulmonary abnormality. Discharge Plan Discharge Condition: Stable Prescriptions: No Action (DME) Comfort EZ Pen [place] 33 gauge x 1/4 needle See Rx Instructions .ROUTE .MEDSUPPLY Qty: 100 2RF Rx Instructions: As directed (DME) Blood Glucose Test Strip See Rx Instructions .Route Qty: 100 11RF Rx Instructions: Use with meter to test 3 times a day. ropinirole 1 mg tablet 1 mg PO BEDTIME 30 Days Qty: 30 1RF pregabalin 150 mg capsule 150 mg PO BID Qty: 60 0RF diclofenac sodium 75 mg tablet,delayed release (DR/EC) 75 mg PO Q12H PRN (Reason: pain) Qty: 20 0RF promethazine 25 mg tablet 25 mg PO Q6H PRN (Reason: Nausea) metoclopramide HCl [Reglan] 10 mg tablet 10 mg PO Q6H PRN (Reason: nausea and vomiting) Qty: 20 0RF cyclobenzaprine 10 mg tablet 10 mg PO TID PRN (Reason: Muscle Spasms) Lantus Solostar U-100 Insulin 100 unit/mL (3 mL) insulin pen 20 unit SUBCUT BEDTIME Humalog KwikPen Insulin 200 unit/mL (3 mL) Insulin Pen See Rx Instructions .ROUTE .COMPLEX Rx Instructions: sliding scale tid (max of 30 units per day) ibuprofen 200 mg Tablet 800 mg PO Q8H PRN (Reason: Pain) ondansetron 4 mg tablet,disintegrating 4 mg PO Q8H PRN (Reason: Nausea And Vomiting) aspirin 81 mg tablet,delayed release (DR/EC) 81 mg PO DAILY Qty: 30 0RF isosorbide mononitrate 30 mg tablet extended release 24 hr 30 mg PO DAILY Qty: 30 0RF Referrals: Mora Rodrigues FNP [Primary Care Provider] - Coding Level of Care Code ED General Farmworker for Kim Mitchell
== END 2022-06-26 13:50 | disposition home or self-care (01) ==
PROVIDERS: Emergency Provider Family Medicine; PCP Nurse Practitioner Family
DX: R07.9 Chest pain, unspecified (principal); Z95.5 Presence of coronary angioplasty implant and graft; I10 Essential (primary) hypertension; I25.10 Atherosclerotic heart disease of native coronary artery without angina pectoris
CPT/HCPCS: 71045; 93005; 96372; 99284; J1885

== ENCOUNTER 2022-08-06 08:05 | Emergency (ER) | payer MEDICAID, SELFPAY ==
[2022-08-06 08:11] VITALS: BP 171/117; PULSE 106; RESP 18; TEMP 36.6; O2SAT 99
--- NOTE | 2022-08-06 08:24 | ED_ITS ---
HPI - Abdominal Pain General: Chief Complaint: Abdominal Pain Stated Complaint: ABDOMINAL PAIN/ PSYCH BEHAVIOR Time Seen by Provider: 08/06/22 08:07 Source: patient Mode of arrival: EMS Limitations: altered mental status History of Present Illness: 42-year-old male presents emergency room via EMS. She was picked up with a complaint of abdominal pain and was hitting her head on objects in the ambulance. EMS gave her 200 mg of ketamine. She is sedated unable to answer questions when I first seen patient. Patient has a known history of chronic abdominal pain she is diabetic with very poor control she previously had a left below the knee amputation. She frequently comes to the emergency room with complaints of abdominal pain suspect she has some underlying gastroparesis. She previously been at pain clinic for chronic abdominal pain and was dismissed from their last time we did seen her she was pending another evaluation at a different pain clinic. MD elicited complaint: abdominal pain Pain Consistency: constant Location: Diffuse Severity: moderate PFSH ED PFSH: Medical History Acute hyponatremia Acute renal failure Anemia of chronic disease Back pain C. difficile diarrhea Chronic abdominal pain Chronic pain Chronic pain syndrome CKD (chronic kidney disease) stage 2, GFR 60-89 ml/min baseline Cr is around 1.0 Coronary artery disease hx of stenting Depression Diabetes mellitus type 1 diagnosed age 15, history of peripheral neuropathy, gastroparesis and nephropathy Diabetic foot ulcer s/p surgical intervention and eventual amputation Diabetic gastroparesis Diabetic ophthalmopathy Foot osteomyelitis, right ALEJANDRO (generalized anxiety disorder) Gastroparesis GERD (gastroesophageal reflux disease) High anion gap metabolic acidosis Hyperglycemia Hyperlipidemia Hypertension Hyponatremia Insomnia 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 Nausea & vomiting Non-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 Psychiatric care PTSD (post-traumatic stress disorder) Self-harming behavior Self-harming behavior Septic prepatellar bursitis of left knee Suicidal ideation Suicidal ideation Toe infection UTI (urinary tract infection) Surgical History Below-knee amputation of left lower extremity H/O esophagogastroduodenoscopy (12/31/20) Bile reflux gastritis, grade B esophagitis H/O exploratory laparotomy x 3 History of amputation of right forefoot Hx of angioplasty Hx of cholecystectomy Previous section x 3 S/P coronary artery stent placement x 1 S/P percutaneous endoscopic gastrostomy (PEG) tube placement Family History Unknown Diabetes extensive, type II Other CHF (congestive heart failure) Social History Smoking and tobacco status: never smoked Quit status (tobacco): has quit using tobacco Former quit date comment: 15 yrs ago Alcohol intake: former Former alcohol use details: 15 yrs ago Household members: spouse Marital status: Sexually active: Yes (1, ) Female Reproductive History: Spontaneous abortions: No Physical Exam Const: COMMON NORMALS: no acute distress GENERAL APPEARANCE: cooperative and comfortable ORIENTATION/CONSCIOUSNESS: Yes awake HENMT: COMMON NORMALS: normocephalic, atraumatic and hearing grossly normal bilaterally HEAD & SCALP: normocephalic and atraumatic Resp: COMMON NORMALS: normal respiratory effort, No retractions, No use of accessory muscles and clear to auscultation bilaterally AUSCULTATION: clear to auscultation bilaterally Cardio: COMMON NORMALS: regular rate, regular rhythm and No murmurs present (Cardio) RATE: regular rate RHYTHM: regular rhythm GI: COMMON NORMALS: Soft to palpation and No hepatosplenomegaly present AUSCULTATION: Yes normoactive bowel sounds PALPATION: Yes Soft to palpation, No Tenderness to palpation present (GI), No Guarding due to palpation present (GI) and Yes No hepatosplenomegaly present Extremity: COMMON NORMALS: normal to inspection, capillary refill normal, no clubbing, cyanosis or edema, no calf tenderness and no pedal edema Skin: COMMON NORMALS: no rashes or lesions noted GENERAL SKIN EXAM: no rashes or lesions noted Course Vital Signs: Vital signs: Vital Signs Temperature 97.9 F 08/06/22 08:11 Pulse Rate 104 H 08/06/22 11:30 Respiratory Rate 20 H 08/06/22 08:28 Blood Pressure 200/146 08/06/22 08:43 Pulse Oximetry 99 08/06/22 11:30 Oxygen Delivery Me thod 08/06/22 10:05 MDM - Abdominal Pain Medical Decision Making Labs reviewed. White count normal patient does have some mild hypokalemia she is given fluids. She was given ketamine for behaviors in route. She has exhibited similar behaviors in the past when she is in pain here we usually just redirect her. She given Haldol for persistent nausea which worked well she is feeling better we will discharge her home with suspect a lot of this is due to better gastroparesis from poorly controlled diabetes use previously prescribed antiemetics as needed potassium supplement 20 mill equivalents twice daily for 5 days follow-up with primary care Medical Records I reviewed the patient's medical records. Lab Data I reviewed the patient's lab results. 08/06/22 09:20 08/06/22 09:20 Labs/Radiology: Laboratory Results WBC 9.7 10^3/uL (4.0-10.0) 08/06/22 09:20 RBC 4.65 10^6/uL (4.1-5.3) 08/06/22 09:20 Hgb 12.2 g/dL (11.5-15.3) 08/06/22 09:20 Hct 37.6 % (37.0-47.0) 08/06/22 09:20 MCV 80.9 fl (81-99) L 08/06/22 09:20 MCH 26.2 pg (28.0-34.0) L 08/06/22 09:20 MCHC 32.4 g/dL (30.0-36.0) 08/06/22 09:20 RDW 19.3 % (12.1-15.1) H 08/06/22 09:20 Plt Count 326 10^3/cmm (130-400) 08/06/22 09:20 MPV 8.5 fL (7.4-10.4) 08/06/22 09:20 Neut % (Auto) 84.7 % 08/06/22 09:20 Lymph % (Auto) 7.9 % 08/06/22 09:20 Rhea % (Auto) 6.6 % 08/06/22 09:20 Eos % (Auto) 0.1 % 08/06/22 09:20 Baso % (Auto) 0.4 % 08/06/22 09:20 Neut # (Auto) 8.18 10^3/uL (1.8-7.7) H 08/06/22 09:20 Lymph # (Auto) 0.8 10^3/uL (0.8-4.8) 08/06/22 09:20 Rhea # (Auto) 0.6 10^3/uL (0.2-0.9) 08/06/22 09:20 Eos # (Auto) 0.0 10^3/uL (0.0-0.8) 08/06/22 09:20 Baso # (Auto) 0.0 10^3/uL (0.0-0.1) 08/06/22 09:20 Nucleated RBC % (auto) 0 % 08/06/22 09:20 Nucleated RBCs # 0.0 /100WBC 08/06/22 09:20 Sodium 140 mmol/L (136-145) 08/06/22 09:20 Potassium 3.2 mmol/L (3.5-5.1) L 08/06/22 09:20 Chloride 102 mmol/L (98-107) 08/06/22 09:20 Carbon Dioxide 21 mmol/L (22-29) L 08/06/22 09:20 Anion Gap 20.2 (5-19) H 08/06/22 09:20 BUN 27 mg/dL (6-20) H 08/06/22 09:20 Creatinine 1.2 mg/dL (0.5-0.9) H 08/06/22 09:20 GFR Calculation 48.8 mL/min (90-130) L 08/06/22 09:20 Glucose 181 mg/dL (65-115) H 08/06/22 09:20 Calculated Osmolality 300 mOsm/kg (285-295) H 08/06/22 09:20 Calcium 10.2 mg/dL (8.5-10.5) 08/06/22 09:20 Total Bilirubin 0.6 mg/dL (0.15-1.2) 08/06/22 09:20 AST 14 U/L (0-32) 08/06/22 09:20 ALT 17 U/L (0-33) 08/06/22 09:20 Alkaline Phosphatase 179 U/L (35-105) H 08/06/22 09:20 Total Protein 8.3 g/dL (6.6-8.7) 08/06/22 09:20 Albumin 4.4 g/dL (3.5-5.2) 08/06/22 09:20 Globulin 3.9 g/dL (1.3-4.6) 08/06/22 09:20 Lipase 23 U/L (13-60) 08/06/22 09:20 Urine Color Dark yellow (Yellow) 08/06/22 11:15 Urine Appearance Hazy (CLEAR) A 08/06/22 11:15 Urine pH 5 (5-7) 08/06/22 11:15 Ur Specific [place] 1.025 (1.005-1.030) 08/06/22 11:15 Urine Protein 3+ (Negative) H 08/06/22 11:15 Urine Glucose (UA) Trace (Normal) H 08/06/22 11:15 Urine Ketones Negative (Negative) 08/06/22 11:15 Urine Blood 2+ (Negative) H 08/06/22 11:15 Urine Nitrate Negative (Negative) 08/06/22 11:15 Urine Bilirubin Neg (Negative) 08/06/22 11:15 Urine Urobilinogen Norm mg/dL (Negative) 08/06/22 11:15 Ur Leukocyte Esterase 2+ (Negative) H 08/06/22 11:15 Urine RBC 5-10 /hpf (0-2) H 08/06/22 11:15 Urine WBC 15-25 /hpf (0-5) H 08/06/22 11:15 Ur Squamous Epith Cells 15-25 /hpf (0-5) H 08/06/22 11:15 Amorphous Sediment Not Reportable 08/06/22 11:15 Urine Bacteria 2+ /hpf (NONE) H 08/06/22 11:15 Discharge Plan Discharge Patient Disposition: Home Clinical Impression: Chronic abdominal pain, Diabetic gastroparesis, Hypokalemia Condition: Stable Prescriptions: New potassium chloride 20 mEq tablet,ER particles/crystals 20 meq PO BID Qty: 10 0RF No Action (DME) Comfort EZ Pen [place] 33 gauge x 1/4 needle See Rx Instructions .ROUTE .MEDSUPPLY Qty: 100 2RF Rx Instructions: As directed (DME) Blood Glucose Test Strip See Rx Instructions .Route Qty: 100 11RF Rx Instructions: Use with meter to test 3 times a day. ropinirole 1 mg tablet 1 mg PO BEDTIME 30 Days Qty: 30 1RF pregabalin 150 mg capsule 150 mg PO BID Qty: 60 0RF diclofenac sodium 75 mg tablet,delayed release (DR/EC) 75 mg PO Q12H PRN (Reason: pain) Qty: 20 0RF promethazine 25 mg tablet 25 mg PO Q6H PRN (Reason: Nausea) metoclopramide HCl [Reglan] 10 mg tablet 10 mg PO Q6H PRN (Reason: nausea and vomiting) Qty: 20 0RF cyclobenzaprine 10 mg tablet 10 mg PO TID PRN (Reason: Muscle Spasms) Lantus Solostar U-100 Insulin 100 unit/mL (3 mL) insulin pen 20 unit SUBCUT BEDTIME Humalog KwikPen Insulin 200 unit/mL (3 mL) Insulin Pen See Rx Instructions .ROUTE .COMPLEX Rx Instructions: sliding scale tid (max of 30 units per day) ibuprofen 200 mg Tablet 800 mg PO Q8H PRN (Reason: Pain) ondansetron 4 mg tablet,disintegrating 4 mg PO Q8H PRN (Reason: Nausea And Vomiting) aspirin 81 mg tablet,delayed release (DR/EC) 81 mg PO DAILY Qty: 30 0RF isosorbide mononitrate 30 mg tablet extended release 24 hr 30 mg PO DAILY Qty: 30 0RF Discharge Orders: Discharge ED (Routine); Ordered 08/06/22 Ordered By: Adama Ceballos Referrals: Mora Rodrigues, COTTON PICKING MACHINE OPERATOR [Primary Care Provider] - Patient Instructions: Abdominal Pain (ED), Opioid Safety, Pain Management Activity Restrictions/Additional Instructions: You were seen today for abdominal pain with persistent nausea vomiting. This has been a chronic problem for you your laboratory tests were unremarkable for any acute significant changes. Recommend you use previously prescribed antiemetics as needed. Follow-up with pain clinic as referred by primary care. Coding Level of Care Code ED Conveyor Belt Installer for Kim Fwd Exam Detailed
--- NOTE | 2022-08-06 08:26 | ECG_ITS ---
[facility] Test Date: 2022-08-06 Pat Name: Cherrie Solomon Department: Room: Gender: Female Hand Shoes Sewer: : 1980 Requested By: Adama Clancy Order Number: [id number] Jeff MD: Donal Johnson M.D. Measurements Intervals [place] Rate: 108 P: 49 AL: 146 QRS: 35 QRSD: 98 T: 74 QT: 337 QTc: 452 Interpretive Statements SINUS TACHYCARDIA POSSIBLE INFERIOR MYOCARDIAL INFARCTION , OF INDETERMINATE AGE [30 ms Q WAVE IN II/aVF] Compared to ECG 06/26/2022 10:49:34 Myocardial infarct finding now present Electronically Signed On 08-06-2022 19:49:05 RIPSAW MATCHER by Donal Johnson M.D. [email or web address]
[2022-08-06 08:28] VITALS: PULSE 110; RESP 20; O2SAT 100
[2022-08-06 08:43] VITALS: BP 200/146
[2022-08-06 09:36] LABS: Basophils % 0.4 %; Eosinophils % 0.1 %; Hematocrit 37.6 % (37.0-47.0); Hemoglobin 12.2 g/dL (11.5-15.3); Lymphocytes # 0.8 10^3/uL (0.8-4.8); Lymphocytes % 7.9 %; Mean Corpuscular HGB Conc 32.4 g/dL (30.0-36.0); Mean Corpuscular Hemoglobin 26.2 pg (28.0-34.0); Mean Corpuscular Volume 80.9 fl (81-99); Mean Platelet Volume 8.5 fL (7.4-10.4); Monocytes # 0.6 10^3/uL (0.2-0.9); Monocytes % 6.6 %; Neutrophils # 8.18 10^3/uL (1.8-7.7); Neutrophils % 84.7 %; Nucleated Red Blood Cells % 0 %; Platelet Count 326 10^3/cmm (130-400); Red Blood Count 4.65 10^6/uL (4.1-5.3); Red Cell Distribution Width 19.3 % (12.1-15.1); White Blood Count 9.7 10^3/uL (4.0-10.0)
[2022-08-06 09:50] LABS: Alanine Aminotransferase 17 U/L (0-33); Albumin Level 4.4 g/dL (3.5-5.2); Alkaline Phosphatase 179 U/L (35-105); Anion Gap 20.2 (5-19); Aspartate Amino Transferase 14 U/L (0-32); Blood Urea Nitrogen 27 mg/dL (6-20); Calcium 10.2 mg/dL (8.5-10.5); Carbon Dioxide 21 mmol/L (22-29); Chloride 102 mmol/L (98-107); Globulin 3.9 g/dL (1.3-4.6); Glomerular Filtration Rate 48.8 mL/min (90-130); Glucose 181 mg/dL (65-115); Lipase 23 U/L (13-60); Osmolality Calculated 300 mOsm/kg (285-295); Potassium 3.2 mmol/L (3.5-5.1); Sodium 140 mmol/L (136-145); Total Bilirubin 0.6 mg/dL (0.15-1.2); Total Protein 8.3 g/dL (6.6-8.7)
[2022-08-06] MEDS: ketorolac 30 mg/mL INJ IVP (10:00)
[2022-08-06] MEDS: metoclopramide 5 mg/mL SDV 2 mL 10 MG IVP (10:00)
[2022-08-06] MEDS: sodium chloride 0.9% 1,000 ML 999 ML IV (10:02)
[2022-08-06 10:05] VITALS: PULSE 112; O2SAT 100
[2022-08-06] MEDS: diphenhydrAMINE 50 mg/mL SDV 1mL 25 MG IVP (10:18)
[2022-08-06] MEDS: haloperidol inj 5 mg/mL INJ 1 mL 2.5 MG IVP (10:18)
[2022-08-06 11:30] VITALS: PULSE 104; O2SAT 99
[2022-08-06 11:41] LABS: Urine Appearance Hazy (CLEAR); Urine Color Dark Yellow (Yellow); pH Urine 5 (5-7)
[2022-08-06 11:42] LABS: Add Urine Culture? No; Add Urine Microscopic? YES; Bacteria Urine 2+ /hpf; Bilirubin Urine Neg (Negative); Blood Urine 2+ (Negative); Glucose Urine UA Trace (Normal); Ketones Urine Negative (Negative); Leukocyte Esterase Urine 2+ (Negative); Nitrate Urine Negative (Negative); Protein Urine 3+ (Negative); Specific Gravity, Urine 1.025 (1.005-1.030); Squamous Epithelial Cell Urine 15-25 /hpf (0-5); Urobilinogen Urine Norm (Negative); WBC Urine 15-25 /hpf (0-5)
[2022-08-06 12:56] VITALS: BP 175/96; PULSE 94; RESP 18; O2SAT 98
== END 2022-08-06 13:00 | disposition home or self-care (01) ==
PROVIDERS: Emergency Provider Family Medicine; PCP Nurse Practitioner Family
DX: R10.9 Unspecified abdominal pain (principal); G89.29 Other chronic pain; E11.43 Type 2 diabetes mellitus with diabetic autonomic (poly)neuropathy; K31.84 Gastroparesis; E87.6 Hypokalemia
CPT/HCPCS: 36415; 80053; 81001; 83690; 85025; 93005; 96361; 96374; 96375; 99284; J1200; J1630; J1885; J2765; J7030

== ENCOUNTER 2022-08-14 21:54 | Emergency (ER) | payer MEDICAID, SELFPAY ==
[2022-08-14 22:19] VITALS: BP 136/83; PULSE 108; RESP 18; TEMP 36.9; O2SAT 100; BMI 23.6
--- NOTE | 2022-08-14 23:36 | XRR_ITS ---
PROCEDURE INFORMATION: Exam: XR Left Tibia and Fibula Exam date and time: 08/14/2022 11:43 PM Age: 42 years old Clinical indication: Swelling, leg or foot; Lower leg; Prior surgery; Surgery type: Amputation; Patient HX: C/O pain with swelling and redness to stump of left leg. TECHNIQUE: Imaging protocol: Radiologic exam of the Left tibia and fibula. Views: 2 views. COMPARISON: No relevant prior studies available. FINDINGS: Bones/joints: No bone destruction or periosteal elevation. Soft tissues: Diffuse soft tissue edema at the end of the stump with a small soft tissue lesion. There are changes of prior below the knee amputation. XR/XR tibia fibula LT 2V [id number] IMPRESSION: 1. No evidence of osteomyelitis. 2. Diffuse soft tissue edema at the end of the stump with a small soft tissue lesion.
[2022-08-14] MEDS: HYDROcodone-acetaminophen 5-325 mg Tablet 1 TAB PO (23:43)
--- NOTE | 2022-08-14 23:46 | W.ED.EXTPRO ---
HPI - Extremity Problem General: Chief complaint: Extremity Problem,Nontraumatic Stated complaint: left leg infection? Time Seen by Provider: 08/14/22 23:33 Source: patient Mode of arrival: ambulatory Limitations: no limitations History of Present Illness: 42-year-old female is very well-known to the ER she has had a history of a left BKA years ago states she noticed a wound with some mild erythema and pain that started over the last 2 days she has not seen 1 for this she denies any injury she denies any fevers denies any worsening improving factors. Associated symptoms: Deny chest pain, fever(s) or rash Review of Systems Const: Denies: fever(s), chills, body aches or change in appetite Eyes: Denies: blurry vision or eye discomfort ENMT: Denies: throat pain or dental pain Card: Denies: chest pain Resp: Denies: dyspnea GI: Denies: abdominal pain, nausea, vomiting or diarrhea : Denies: dysuria Musc: Reports: extremity pain Skin/Breast: Denies: rash Neuro: Denies: headache(s) Psych: Denies: depression Keith/Lymph: Denies: easy bruising All/Imm: Denies: urticaria PFSH ED PFSH: Medical History Acute hyponatremia Acute renal failure Anemia of chronic disease Back pain C. difficile diarrhea Chronic abdominal pain Chronic pain Chronic pain syndrome CKD (chronic kidney disease) stage 2, GFR 60-89 ml/min baseline Cr is around 1.0 Coronary artery disease hx of stenting Depression Diabetes mellitus type 1 diagnosed age 15, history of peripheral neuropathy, gastroparesis and nephropathy Diabetic foot ulcer s/p surgical intervention and eventual amputation Diabetic gastroparesis Diabetic ophthalmopathy Foot osteomyelitis, right ALEJANDRO (generalized anxiety disorder) Gastroparesis GERD (gastroesophageal reflux disease) High anion gap metabolic acidosis Hyperglycemia Hyperlipidemia Hypertension Hyponatremia Insomnia 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 Nausea & vomiting Non-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 Psychiatric care PTSD (post-traumatic stress disorder) Self-harming behavior Self-harming behavior Septic prepatellar bursitis of left knee Suicidal ideation Suicidal ideation Toe infection UTI (urinary tract infection) Surgical History Below-knee amputation of left lower extremity H/O esophagogastroduodenoscopy (12/31/20) Bile reflux gastritis, grade B esophagitis H/O exploratory laparotomy x 3 History of amputation of right forefoot Hx of angioplasty Hx of cholecystectomy Previous section x 3 S/P coronary artery stent placement x 1 S/P percutaneous endoscopic gastrostomy (PEG) tube placement Family History Unknown Diabetes extensive, type II Other CHF (congestive heart failure) Social History Smoking and tobacco status: never smoked Quit status (tobacco): has quit using tobacco Former quit date comment: 15 yrs ago Alcohol intake: former Former alcohol use details: 15 yrs ago Household members: spouse Marital status: Sexually active: Yes (1, ) Female Reproductive History: Spontaneous abortions: No Physical Exam Const: COMMON NORMALS: no acute distress, patient oriented x3 and healthy appearing HENMT: COMMON NORMALS: normocephalic and atraumatic HEAD & SCALP: normocephalic and atraumatic Eye: COMMON NORMALS: Equal, round and reactive pupils present and EOMs intact bilaterally PUPIL: Yes Equal, round and reactive pupils present Neck/C-Spine: COMMON NORMALS: full ROM and supple Chest: COMMONS NORMALS: normal inspection of the chest and normal palpation of entire chest wall Resp: COMMON NORMALS: normal respiratory effort, No retractions, No use of accessory muscles and clear to auscultation bilaterally AUSCULTATION: clear to auscultation bilaterally Cardio: COMMON NORMALS: regular rate, regular rhythm and No murmurs present (Cardio) RATE: regular rate RHYTHM: regular rhythm GI: COMMON NORMALS: Normal to inspection, nondistended, normoactive bowel sounds present, Soft to palpation, non-tender and no masses PALPATION: Yes Soft to palpation Extremity: NARRATIVE EXTREMITY EXAM: BK amputation of the left she has a small wound with some surrounding erythema is mild in nature Neuro: COMMON NORMALS: patient oriented x3, moves all extremities and no focal motor deficits Psych: COMMON NORMALS: mental status grossly normal, Normal thought process present and cooperative THOUGHT PROCESS: Normal thought process present Skin: COMMON NORMALS: no rashes or lesions noted and no wounds GENERAL SKIN EXAM: no rashes or lesions noted Course Vital Signs: Vital signs: Vital Signs Temperature 98.4 F 08/14/22 22:19 Pulse Rate 108 H 08/14/22 22:19 Respiratory Rate 18 08/14/22 22:19 Blood Pressure 136/83 08/14/22 22:19 Pulse Oximetry 100 08/14/22 22:19 Oxygen Delivery Me thod 08/14/22 22:19 MDM - Extremity (Nontraumatic) Medical Decision Making Patient presents here with slight cellulitis to her left stump no necrotic wound mild cellulitis blood works normal we will place patient on antibiotics care follow-up with wound care she is return if worsening. Lab Data 08/14/22 23:55 08/14/22 23:55 Radiology Impressions Tibia/Fibula X-Ray 08/14/22 23:36 IMPRESSION: 1. No evidence of osteomyelitis. 2. Diffuse soft tissue edema at the end of the stump with a small soft tissue lesion. Laboratory Results WBC 6.4 10^3/uL (4.0-10.0) 08/14/22 23:55 RBC 3.75 10^6/uL (4.1-5.3) L 08/14/22 23:55 Hgb 9.8 g/dL (11.5-15.3) L 08/14/22 23:55 Hct 30.7 % (37.0-47.0) L 08/14/22 23:55 MCV 81.9 fl (81-99) 08/14/22 23:55 MCH 26.1 pg (28.0-34.0) L 08/14/22 23:55 MCHC 31.9 g/dL (30.0-36.0) 08/14/22 23:55 RDW 18.3 % (12.1-15.1) H 08/14/22 23:55 Plt Count 509 10^3/cmm (130-400) H 08/14/22 23:55 MPV 8.7 fL (7.4-10.4) 08/14/22 23:55 Neut % (Auto) 59.4 % 08/14/22 23:55 Lymph % (Auto) 28.2 % 08/14/22 23:55 Ramsey % (Auto) 6.6 % 08/14/22 23:55 Eos % (Auto) 4.1 % 08/14/22 23:55 Baso % (Auto) 0.6 % 08/14/22 23:55 Neut # (Auto) 3.77 10^3/uL (1.8-7.7) 08/14/22 23:55 Lymph # (Auto) 1.8 10^3/uL (0.8-4.8) 08/14/22 23:55 Ramsey # (Auto) 0.4 10^3/uL (0.2-0.9) 08/14/22 23:55 Eos # (Auto) 0.3 10^3/uL (0.0-0.8) 08/14/22 23:55 Baso # (Auto) 0.0 10^3/uL (0.0-0.1) 08/14/22 23:55 Nucleated RBC % (auto) 0 % 08/14/22 23:55 Nucleated RBCs # 0.0 /100WBC 08/14/22 23:55 Sodium 136 mmol/L (136-145) 08/14/22 23:55 Potassium 3.3 mmol/L (3.5-5.1) L 08/14/22 23:55 Chloride 99 mmol/L (98-107) 08/14/22 23:55 Carbon Dioxide 27 mmol/L (22-29) 08/14/22 23:55 Anion Gap 13.3 (5-19) 08/14/22 23:55 BUN 14 mg/dL (6-20) 08/14/22 23:55 Creatinine 0.9 mg/dL (0.5-0.9) 08/14/22 23:55 GFR Calculation 68.0 mL/min (90-130) L 08/14/22 23:55 Glucose 159 mg/dL (65-115) H 08/14/22 23:55 Calculated Osmolality 286 mOsm/kg (285-295) 08/14/22 23:55 Calcium 9.1 mg/dL (8.5-10.5) 08/14/22 23:55 Total Bilirubin 0.2 mg/dL (0.15-1.2) 08/14/22 23:55 AST 10 U/L (0-32) 08/14/22 23:55 ALT 13 U/L (0-33) 08/14/22 23:55 Alkaline Phosphatase 220 U/L (35-105) H 08/14/22 23:55 Total Protein 7.8 g/dL (6.6-8.7) 08/14/22 23:55 Albumin 3.5 g/dL (3.5-5.2) 08/14/22 23:55 Globulin 4.3 g/dL (1.3-4.6) 08/14/22 23:55 Discharge Plan Discharge Patient Disposition: Home Clinical Impression: Cellulitis Condition: Stable Prescriptions: New clindamycin HCl 300 mg capsule 300 mg PO Q8H 7 Days Qty: 21 0RF No Action (DME) Comfort EZ Pen [place] 33 gauge x 1/4 needle See Rx Instructions .ROUTE .MEDSUPPLY Qty: 100 2RF Rx Instructions: As directed (DME) Blood Glucose Test Strip See Rx Instructions .Route Qty: 100 11RF Rx Instructions: Use with meter to test 3 times a day. ropinirole 1 mg tablet 1 mg PO BEDTIME 30 Days Qty: 30 1RF pregabalin 150 mg capsule 150 mg PO BID Qty: 60 0RF diclofenac sodium 75 mg tablet,delayed release (DR/EC) 75 mg PO Q12H PRN (Reason: pain) Qty: 20 0RF promethazine 25 mg tablet 25 mg PO Q6H PRN (Reason: Nausea) metoclopramide HCl [Reglan] 10 mg tablet 10 mg PO Q6H PRN (Reason: nausea and vomiting) Qty: 20 0RF cyclobenzaprine 10 mg tablet 10 mg PO TID PRN (Reason: Muscle Spasms) Lantus Solostar U-100 Insulin 100 unit/mL (3 mL) insulin pen 20 unit SUBCUT BEDTIME Humalog KwikPen Insulin 200 unit/mL (3 mL) Insulin Pen See Rx Instructions .ROUTE .COMPLEX Rx Instructions: sliding scale tid (max of 30 units per day) ibuprofen 200 mg Tablet 800 mg PO Q8H PRN (Reason: Pain) ondansetron 4 mg tablet,disintegrating 4 mg PO Q8H PRN (Reason: Nausea And Vomiting) aspirin 81 mg tablet,delayed release (DR/EC) 81 mg PO DAILY Qty: 30 0RF isosorbide mononitrate 30 mg tablet extended release 24 hr 30 mg PO DAILY Qty: 30 0RF potassium chloride 20 mEq tablet,ER particles/crystals 20 meq PO BID Qty: 10 0RF Discharge Orders: Discharge ED (Routine); Ordered 08/15/22 Ordered By: Donavon Delaney Referrals: Mora Rodrigues FNP [Primary Care Provider] - Discharge Diet: Advance as tolerated Discharge Activity: Resume usual activity Patient Instructions: Cellulitis (ED) Coding Level of Care Code ED Junior Linux Systems Administrator for Chg Fwd Exam Comprehensive
[2022-08-15 00:11] LABS: Basophils % 0.6 %; Eosinophils # 0.3 10^3/uL (0.0-0.8); Eosinophils % 4.1 %; Hematocrit 30.7 % (37.0-47.0); Hemoglobin 9.8 g/dL (11.5-15.3); Lymphocytes # 1.8 10^3/uL (0.8-4.8); Lymphocytes % 28.2 %; Mean Corpuscular HGB Conc 31.9 g/dL (30.0-36.0); Mean Corpuscular Hemoglobin 26.1 pg (28.0-34.0); Mean Corpuscular Volume 81.9 fl (81-99); Mean Platelet Volume 8.7 fL (7.4-10.4); Monocytes # 0.4 10^3/uL (0.2-0.9); Monocytes % 6.6 %; Neutrophils # 3.77 10^3/uL (1.8-7.7); Neutrophils % 59.4 %; Nucleated Red Blood Cells % 0 %; Platelet Count 509 10^3/cmm (130-400); Red Blood Count 3.75 10^6/uL (4.1-5.3); Red Cell Distribution Width 18.3 % (12.1-15.1); White Blood Count 6.4 10^3/uL (4.0-10.0)
[2022-08-15 00:43] LABS: Alanine Aminotransferase 13 U/L (0-33); Albumin Level 3.5 g/dL (3.5-5.2); Alkaline Phosphatase 220 U/L (35-105); Anion Gap 13.3 (5-19); Aspartate Amino Transferase 10 U/L (0-32); Blood Urea Nitrogen 14 mg/dL (6-20); Calcium 9.1 mg/dL (8.5-10.5); Carbon Dioxide 27 mmol/L (22-29); Chloride 99 mmol/L (98-107); Globulin 4.3 g/dL (1.3-4.6); Glucose 159 mg/dL (65-115); Osmolality Calculated 286 mOsm/kg (285-295); Potassium 3.3 mmol/L (3.5-5.1); Sodium 136 mmol/L (136-145); Total Bilirubin 0.2 mg/dL (0.15-1.2); Total Protein 7.8 g/dL (6.6-8.7)
[2022-08-15 01:25] VITALS: BP 166/106; PULSE 94; RESP 18; O2SAT 95
--- NOTE | 2022-08-15 09:00 | DCPLANNER ---
Addendum entered by Audrey Estrada 08/22/22 15:16: business change manager received the following message from Wound Care clinic regarding follow up appointment: pt already has a wound care appt at [facility]. pt refuses appt with us at this time Chuyita Rosenthal completed item. Original Note: business change manager had message to schedule a follow up appointment for patient with Wound Care. business change manager sent patients information to the front office staff at Wound Care. Patients information will be printed and reviewed. Clinic will call patient with appointment information.
== END 2022-08-15 00:55 | disposition home or self-care (01) ==
PROVIDERS: Emergency Provider Emergency Medicine; PCP Nurse Practitioner Family
DX: L03.116 Cellulitis of left lower limb (principal); Z79.82 Long term (current) use of aspirin; Z79.4 Long term (current) use of insulin; Z87.891 Personal history of nicotine dependence; Z89.512 Acquired absence of left leg below knee; E10.22 Type 1 diabetes mellitus with diabetic chronic kidney disease; I12.9 Hypertensive chronic kidney disease with stage 1 through stage 4 chronic kidney disease, or unspecified chronic kidney disease; N18.2 Chronic kidney disease, stage 2 (mild); I25.10 Atherosclerotic heart disease of native coronary artery without angina pectoris; E78.5 Hyperlipidemia, unspecified
CPT/HCPCS: 73590; 80053; 85025; 99284

== ENCOUNTER → 2022-08-22 14:19 | Outpatient (BNVA) | payer MEDICAID, SELFPAY | PROVIDERS: PCP Nurse Practitioner Family; Visit Provider Internal Medicine Cardiovascular Disease | DX: R00.0 Tachycardia, unspecified (principal); I25.10 Atherosclerotic heart disease of native coronary artery without angina pectoris; R07.9 Chest pain, unspecified; E78.5 Hyperlipidemia, unspecified; I12.9 Hypertensive chronic kidney disease with stage 1 through stage 4 chronic kidney disease, or unspecified chronic kidney disease; E10.22 Type 1 diabetes mellitus with diabetic chronic kidney disease; N18.2 Chronic kidney disease, stage 2 (mild); E10.65 Type 1 diabetes mellitus with hyperglycemia; Z87.891 Personal history of nicotine dependence; Z79.84 Long term (current) use of oral hypoglycemic drugs; E10.43 Type 1 diabetes mellitus with diabetic autonomic (poly)neuropathy; K31.84 Gastroparesis | CPT/HCPCS: 99204; Q3014 ==

== ENCOUNTER 2023-12-16 21:52 | Emergency (ER) | payer MEDICAID, SELFPAY ==
[2023-12-16 21:54] VITALS: BP 194/104; PULSE 121; RESP 20; O2SAT 94; BMI 24.3
--- NOTE | 2023-12-16 22:01 | CTR_ITS ---
PROCEDURE INFORMATION: Exam: CT Head Without Contrast Exam date and time: 12/17/2023 12:22 AM Age: 43 years old Clinical indication: Injury or trauma; Fall; Other: Pain; Additional info: Fall/head inj TECHNIQUE: Imaging protocol: Computed tomography of the head without contrast. Radiation optimization: All CT scans at this facility use at least one of these dose optimization techniques: automated exposure control; mA and/or kV adjustment per patient size (includes targeted exams where dose is matched to clinical indication); or iterative reconstruction. COMPARISON: CT head wo con* [id number] 06/16/2022 1:59 AM RADIATION DOSE METRICS: Total DLP (mGy-cm): 997.4 FINDINGS: Brain: No acute intracranial hemorrhage. No mass effect or midline shift. No acute extraaxial fluid collection. Unremarkable white matter. Cerebral ventricles: No ventriculomegaly. Paranasal sinuses: Partially visualized sinuses are unremarkable. No fluid levels. Mastoid air cells: Visualized mastoid air cells are well aerated. Bones/joints: Unremarkable. No acute calvarial fracture. Soft tissues: Small frontal scalp hematoma. Vasculature: Atherosclerotic calcifications in the intracranial segments of bilateral internal carotid arteries. CT/CT head wo con* [id number] IMPRESSION: 1. No acute intracranial findings and no acute calvarial fractures. 2. Small frontal scalp hematoma.
--- NOTE | 2023-12-16 22:01 | CTR_ITS ---
PROCEDURE INFORMATION: Exam: CT Cervical Spine Without Contrast Exam date and time: 12/17/2023 12:22 AM Age: 43 years old Clinical indication: Injury or trauma; Fall; Other: Pain; Additional info: Fall/head inj TECHNIQUE: Imaging protocol: Computed tomography of the cervical spine without contrast. Radiation optimization: All CT scans at this facility use at least one of these dose optimization techniques: automated exposure control; mA and/or kV adjustment per patient size (includes targeted exams where dose is matched to clinical indication); or iterative reconstruction. COMPARISON: CT cervical spin wo con* [id number] 01/21/2021 12:43 PM RADIATION DOSE METRICS: Total DLP (mGy-cm): 555.3 FINDINGS: Bones/joints: No acute fracture. Normal alignment. No significant disc bulge or herniation. No severe spinal canal stenosis. Advanced C5-C6 degenerative disc disease and a 6 mm right posterolateral disc/osteophyte complex at C5-C6 level, resulting in moderate right C5-C6 lateral recess stenosis and moderate right C5-C6 foraminal stenosis. There is mild bilateral C3-C4 and C4-C5 foraminal stenosis. Lungs: Lung apices are normal. Soft tissues: Unremarkable. CT/CT cervical spin wo con* [id number] IMPRESSION: 1. No acute cervical spine findings. 2. Advanced C5-C6 degenerative disc disease and a 6 mm right posterolateral disc/osteophyte complex at C5-C6 level, resulting in moderate right C5-C6 lateral recess stenosis and moderate right C5-C6 foraminal stenosis. There is mild bilateral C3-C4 and C4-C5 foraminal stenosis. Please, note that C5-C6 findings may also be caused by chronic C5-C6 discitis/osteomyelitis. If there is a clinical suspicion for discitis/osteomyelitis, cervical spine MRI with and without IV contrast should be ordered. 3. No significant spinal canal stenosis.
--- NOTE | 2023-12-16 22:02 | ECG_ITS ---
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 Measurements Intervals [place] Rate: 107 P: 56 OH: 136 QRS: 59 QRSD: 92 T: 87 QT: 355 QTc: 474 Interpretive Statements SINUS TACHYCARDIA ABNORMAL RHYTHM ECG Compared to ECG 08/06/2022 08:26:29 Myocardial infarct finding no longer present Electronically Signed On 12-17-2023 17:28:31 CDT by Donal Johnson M.D. [id number]
--- NOTE | 2023-12-16 22:09 | ED_ITS ---
Documented by User: SAMUEL Esparza 12/17/23 17:15 HPI - General Adult 2 General: Chief complaint: General Medical Stated complaint: back pain Time Seen by Provider: 12/16/23 21:56 Source: EMS Mode of arrival: EMS Limitations: other (poor historian) History of Present Illness: Patient is a 43-year-old female who presents to the emergency department via EMS due to reported seizures today. Patient was initially seen at [facility] due to the first seizure, though she was also noting some back pain. Records are currently trying to be obtained, as EMS reports she was reportedly discharged AMA. EMS reportedly called artis as patient was found on her lawn accompanied by boyfriend, who had stated she had another seizure. Per EMS, patient was also repeatedly hitting her head against a hard surface, and she arrives with a bandage over her frontal scalp. She also has a bilateral BKA, history from patient and review of systems unobtainable due to her squirming around in the bed. The only thing she is able to report to me is some back pain, reportedly chronic. She also denies drug use, though is unable to answer any other questions. MD complaint: Seizures/back pain Onset (ago): unknown Review of Systems 2 General: Reports: Other (Unobtainable due to patient being poor historian/possible intoxication) [facility] ED 2 [facility]: Medical History Septic prepatellar bursitis of left knee Chronic pain Psychiatric care Hyperglycemia Anemia of chronic disease Insomnia GERD (gastroesophageal reflux disease) ALEJANDRO (generalized anxiety disorder) C. 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 CKD (chronic kidney disease) stage 2, GFR 60-89 ml/min baseline Cr is around 1.0 Diabetic foot ulcer s/p surgical intervention and eventual amputation Hyperlipidemia Coronary artery disease hx of stenting Diabetic gastroparesis Diabetes mellitus type 1 diagnosed age 15, history of peripheral neuropathy, gastroparesis and nephropathy Surgical History Hx of angioplasty H/O esophagogastroduodenoscopy (12/31/20) Bile reflux gastritis, grade B esophagitis Hx of cholecystectomy History of amputation of right forefoot Below-knee amputation of left lower extremity S/P percutaneous endoscopic gastrostomy (PEG) tube placement H/O exploratory laparotomy x 3 Previous section x 3 S/P coronary artery stent placement x 1 Family History Unknown Diabetes extensive, type II Other Congestive heart failure (CHF) Social History Smoking and tobacco/nicotine status: former use of tobacco/nicotine Quit status (tobacco/nicotine): has quit using Former quit date comment: 15 yrs ago Alcohol intake: former Former alcohol use details: 15 yrs ago Substance/Drug Use: current Substance/Drug use frequency: daily Household members: spouse Marital status: Sexually active: Yes (1, ) Female Reproductive History: Spontaneous abortions: No Physical Exam 2 Const: COMMON NORMALS: average body habitus and alert EXAM LIMITATIONS: o ther limitations GENERAL APPEARANCE: disheveled and appears older than stated age ORIENTATION/CONSCIOUSNESS: Yes awake OTHER: Squirming around in bed, does not follow commands. HENMT: COMMON NORMALS: external ears normal and Normal external nose present HEAD & SCALP: contusion frontal scalp ; no Bear's sign, no palpable skull fracture and no raccoon eyes FACE & SINUS: normal facial exam and face symmetric NOSE: Normal external nose present EXTERNAL EAR: Yes external ears normal Eye: COMMON NORMALS: conjunctivae normal and no scleral icterus C ONJUNCTIVA: Yes conjunctivae normal OTHER: pupils slow to react Neck/C-Spine: COMMON NORMALS: full ROM Chest: COMMONS NORMALS: normal inspection of the chest Resp: COMMON NORMALS: No retractions, No use of accessory muscles and clear to auscultation bilaterally EFFORT & INSPECTION: Yes tachypneic AUSCULTATION: clear to auscultation bilaterally Cardio: COMMON NORMALS: regular rhythm, No gallops present (Cardio), No clicks present (Cardio) and No murmurs present (Cardio) RATE: tachycardic RHYTHM: regular rhythm GI: COMMON NORMALS: Soft to palpation, non-tender and no masses INSPECTION: Yes central obesity AUSCULTATION: Yes normoactive bowel sounds PALPATION: Yes Soft to palpation RECTAL EXAM: deferred Back/Pelvis: COMMON NORMALS: thoracic and lumbar spine normal to inspection and thoraco-lumbar ROM normal THORACIC SPINE/UPPER BACK: Yes thoracic ROM normal and Yes thoracic spinal tenderness LUMBAR SPINE/LOWER BACK: Yes lumbar ROM normal and Yes lumbar spinal tenderness OTHER: Examination of back pain unreliable due to patient's clinical status Extremity: COMMON NORMALS: no joint enlargement NARRATIVE EXTREMITY EXAM: Bilateral BKA GENERAL: Yes normal exam except as noted and Yes amputation Neuro: COMMON NORMALS: moves all extremities, no focal motor deficits and no sensory deficits noted SENSORIUM/ORIENTATION: Yes alert and Yes Orientation impaired MOTOR EXAM: 5/5 motor strength present throughout Psych: APPEARANCE: Yes disheveled ATTITUDE: Yes uncooperative, Yes evasive and Yes Belligerent attititude/behavior present ACTIVITY/MOTOR BEHAVIOR: Yes hyperactivity SPEECH: Yes incoherent Skin: COMMON NORMALS: no rashes or lesions noted NARRATIVE SKIN EXAM: See head exam GENERAL SKIN EXAM: no rashes or lesions noted Course 2 Vital Signs: Vital signs: Vital Signs Pulse Rate 87 12/17/23 02:33 Respiratory Rate 18 12/17/23 02:33 Blood Pressure 178/104 12/17/23 02:33 Pulse Oximetry 99 12/17/23 02:33 Oxygen Delivery Me thod Room Air 12/16/23 21:54 [facility] - General Adult Lab Data 12/16/23 22:15 12/16/23 22:15 Radiology Impressions Cervical Spine CT 12/16/23 22:01 IMPRESSION: 1. No acute cervical spine findings. 2. Advanced C5-C6 degenerative disc disease and a 6 mm right posterolateral disc/osteophyte complex at C5-C6 level, resulting in moderate right C5-C6 lateral recess stenosis and moderate right C5-C6 foraminal stenosis. There is mild bilateral C3-C4 and C4-C5 foraminal stenosis. Please, note that C5-C6 findings may also be caused by chronic C5-C6 discitis/osteomyelitis. If there is a clinical suspicion for discitis/osteomyelitis, cervical spine MRI with and without IV contrast should be ordered. 3. No significant spinal canal stenosis. Head CT 12/16/23 22:01 IMPRESSION: 1. No acute intracranial findings and no acute calvarial fractures. 2. Small frontal scalp hematoma. Chest X-Ray 12/16/23 23:22 IMPRESSION: Moderately hyperaerated lungs consistent with deep inspiratory effort vs significant reactive airway disease vs moderate COPD . Laboratory Results WBC 12.45 10^3/uL (3.29-11.43) H 12/16/23 22:15 RBC 3.48 10^6/uL (3.85-5.65) L 12/16/23 22:15 Hgb 10.40 g/dL (11.27-16.99) L 12/16/23 22:15 Hct 30.3 % (36-47) L 12/16/23 22:15 MCV 87.1 fl (85-98) 12/16/23 22:15 MCH 29.9 pg (27-33) 12/16/23 22:15 MCHC 34.3 g/dL (30-55) 12/16/23 22:15 RDW 13.5 % (12.1-15.1) 12/16/23 22:15 Plt Count 341 10^3/cmm (157-399) 12/16/23 22:15 MPV 9.0 fL (7.4-10.4) 12/16/23 22:15 Neut % (Auto) 83.9 % 12/16/23 22:15 Lymph % (Auto) 6.8 % 12/16/23 22:15 [place] % (Auto) 8.4 % 12/16/23 22:15 Eos % (Auto) 0.0 % 12/16/23 22:15 Baso % (Auto) 0.4 % 12/16/23 22:15 Neut # (Auto) 10.45 10^3/uL (1.8-7.7) H 12/16/23 22:15 Lymph # (Auto) 0.9 10^3/uL (0.8-4.8) 12/16/23 22:15 [place] # (Auto) 1.0 10^3/uL (0.2-0.9) H 12/16/23 22:15 Eos # (Auto) 0.0 10^3/uL (0.0-0.8) 12/16/23 22:15 Baso # (Auto) 0.1 10^3/uL (0.0-0.1) 12/16/23 22:15 Nucleated RBC % (auto) 0 % 12/16/23 22:15 Nucleated RBCs # 0.0 /100WBC 12/16/23 22:15 Sodium 138 mmol/L (136-145) 12/16/23 22:15 Potassium 4.4 mmol/L (3.5-5.1) 12/16/23 22:15 Chloride 103 mmol/L (98-107) 12/16/23 22:15 Carbon Dioxide 18 mmol/L (22-29) L 12/16/23 22:15 Anion Gap 21.4 (5-19) H 12/16/23 22:15 BUN 32 mg/dL (6-20) H 12/16/23 22:15 Creatinine 1.8 mg/dL (0.5-0.9) H 12/16/23 22:15 GFR Calculation 30.4 mL/min (90-130) L 12/16/23 22:15 Glucose 243 mg/dL (65-115) H 12/16/23 22:15 POC Glucose 231 mg/dL (70-110) H 12/16/23 22:40 Calculated Osmolality 301 mOsm/kg (285-295) H 12/16/23 22:15 Calcium 9.9 mg/dL (8.5-10.5) 12/16/23 22:15 Total Bilirubin 0.5 mg/dL (0.15-1.2) 12/16/23 22:15 AST 27 U/L (0-32) 12/16/23 22:15 ALT 16 U/L (0-33) 12/16/23 22:15 Alkaline Phosphatase 149 U/L (35-105) H 12/16/23 22:15 Creatine Kinase 659 U/L (26-192) H* 12/16/23 22:15 Total Protein 8.0 g/dL (6.6-8.7) 12/16/23 22:15 Albumin 4.2 g/dL (3.5-5.2) 12/16/23 22:15 Globulin 3.8 g/dL (1.3-4.6) 12/16/23 22:15 Urine Color Yellow (Yellow) 12/16/23 22:20 Urine Appearance Clear (CLEAR) 12/16/23 22:20 Urine pH 6 (5-7) 12/16/23 22:20 Ur Specific [place] 1.015 (1.005-1.030) 12/16/23 22:20 Urine Protein 3+ (Negative) H 12/16/23 22:20 Urine Glucose (UA) 2+ (Normal) H 12/16/23 22:20 Urine Ketones Negative (Negative) 12/16/23 22:20 Urine Blood 3+ (Negative) H 12/16/23 22:20 Urine Nitrate Negative (Negative) 12/16/23 22:20 Urine Bilirubin Neg (Negative) 12/16/23 22:20 Urine Urobilinogen Neg mg/dL (Negative) 12/16/23 22:20 Ur Leukocyte Esterase Negative (Negative) 12/16/23 22:20 Urine RBC 0-4 /hpf (0-2) H 12/16/23 22:20 Urine WBC 0-4 /hpf (0-5) H 12/16/23 22:20 Ur Squamous Epith Cells 0-4 /hpf (0-5) H 12/16/23 22:20 Amorphous Sediment Not Reportable 12/16/23 22:20 Urine Bacteria None /hpf (NONE) 12/16/23 22:20 Urine Opiates Screen Positive ng/mL (Negative) H 12/16/23 22:20 Ur Barbiturates Screen Negative ng/mL (Negative) 12/16/23 22:20 Ur Phencyclidine Scrn Negative ng/mL (Negative) 12/16/23 22:20 Ur Amphetamines Screen Negative ng/mL (Negative) 12/16/23 22:20 U Benzodiazepines Scrn Negative ng/mL (Negative) 12/16/23 22:20 Urine Cocaine Screen Negative ng/mL (Negative) 12/16/23 22:20 U Marijuana (THC) Screen Positive ng/mL (Negative) H 12/16/23 22:20 Ethyl Alcohol < 10 mg/dL (0-10) 12/16/23 22:15 Serum Ketones Negative (Negative) 12/16/23 22:15 All radiology interpretation(s) finalized by discharge Discharge Plan Discharge Patient Disposition: Home Clinical Impression: Seizure-like activity, Hypertension, Elevated CK, Acute kidney insufficiency Condition: Stable Prescriptions: No Action (DME) Comfort EZ Pen [place] 33 gauge x 1/4 needle See Rx Instructions .ROUTE .MEDSUPPLY Qty: 100 2RF Rx Instructions: As directed duloxetine [Cymbalta] 60 mg capsule,delayed release(DR/EC) 60 mg PO BID metoprolol tartrate 25 mg tablet 25 mg PO BID Qty: 60 6RF atorvastatin 20 mg tablet 20 mg PO DAILY Qty: 30 6RF (DME) Blood Glucose Test Strip See Rx Instructions .Route Qty: 100 11RF Rx Instructions: Use with meter to test 3 times a day. ropinirole 1 mg tablet 1 mg PO BEDTIME 30 Days Qty: 30 1RF diclofenac sodium 75 mg tablet,delayed release (DR/EC) 75 mg PO Q12H PRN (Reason: pain) Qty: 20 0RF promethazine 25 mg tablet 25 mg PO Q6H PRN (Reason: Nausea) cyclobenzaprine 10 mg tablet 10 mg PO TID PRN (Reason: Muscle Spasms) Lantus Solostar U-100 Insulin 100 unit/mL (3 mL) insulin pen 20 unit SUBCUT BEDTIME Humalog KwikPen Insulin 200 unit/mL (3 mL) Insulin Pen See Rx Instructions .ROUTE .COMPLEX Rx Instructions: sliding scale tid (max of 30 units per day) ondansetron 4 mg tablet,disintegrating 4 mg PO Q8H PRN (Reason: Nausea And Vomiting) aspirin 81 mg tablet,delayed release (DR/EC) 81 mg PO DAILY Qty: 30 0RF isosorbide mononitrate 30 mg tablet extended release 24 hr 30 mg PO DAILY Qty: 30 0RF Discharge Orders: Discharge ED (Routine); Ordered 12/17/23 Ordered By: All Tiwari Referrals: Mora Rodrigues FNP [Primary Care Provider] - 1 week Patient Instructions: Acute Kidney Injury (DC), Seizures Activity Restrictions/Additional Instructions: Please push plenty of fluids and this will help clear your kidneys out. Please take all your medicine as directed. Please keep an eye on your blood pressure. Keep a blood pressure log at least 2 blood pressures per day and take it back with your family practice physician when you show up for your Coding Level of Care Code ED Power Bender Operator for Chg Fwd Documented by User: All Tiwari DO 12/17/23 02:03 HPI - General Adult 2 General: Chief complaint: General Medical Stated complaint: back pain Time Seen by Provider: 12/16/23 21:56 PFSH ED 2 PFSH: Medical History Septic prepatellar bursitis of left knee Chronic pain Psychiatric care Hyperglycemia Anemia of chronic disease Insomnia GERD (gastroesophageal reflux disease) ALEJANDRO (generalized anxiety disorder) C. 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 CKD (chronic kidney disease) stage 2, GFR 60-89 ml/min baseline Cr is around 1.0 Diabetic foot ulcer s/p surgical intervention and eventual amputation Hyperlipidemia Coronary artery disease hx of stenting Diabetic gastroparesis Diabetes mellitus type 1 diagnosed age 15, history of peripheral neuropathy, gastroparesis and nephropathy Surgical History Hx of angioplasty H/O esophagogastroduodenoscopy (12/31/20) Bile reflux gastritis, grade B esophagitis Hx of cholecystectomy History of amputation of right forefoot Below-knee amputation of left lower extremity S/P percutaneous endoscopic gastrostomy (PEG) tube placement H/O exploratory laparotomy x 3 Previous section x 3 S/P coronary artery stent placement x 1 Family History Unknown Diabetes extensive, type II Other Congestive heart failure (CHF) Social History Smoking and tobacco/nicotine status: former use of tobacco/nicotine Quit status (tobacco/nicotine): has quit using Former quit date comment: 15 yrs ago Alcohol intake: former Former alcohol use details: 15 yrs ago Substance/Drug Use: current Substance/Drug use frequency: daily Household members: spouse Marital status: Sexually active: Yes (1, ) Course 2 Vital Signs: Vital signs: Vital Signs Pulse Rate 87 12/17/23 02:33 Respiratory Rate 18 12/17/23 02:33 Blood Pressure 178/104 12/17/23 02:33 Pulse Oximetry 99 12/17/23 02:33 Oxygen Delivery Me thod Room Air 12/16/23 21:54 MDM - General Adult Medical Decision Making Patient transferred care to myself at shift change, lab work showed white count 12.4 hemoglobin 10.4 BUN/creatinine 32 and 1.8, CT scan of the cervical spine, head and chest x-ray showed no acute changes patient creatinine kinase is 659. Patient is drinking water and is up alert oriented and appropriate. Patient be discharged home with diagnosis of seizure-like activity is to follow-up with her PCP within next 7 days. Lab Data 12/16/23 22:15 12/16/23 22:15 Radiology Impressions Cervical Spine CT 12/16/23 22:01 IMPRESSION: 1. No acute cervical spine findings. 2. Advanced C5-C6 degenerative disc disease and a 6 mm right posterolateral disc/osteophyte complex at C5-C6 level, resulting in moderate right C5-C6 lateral recess stenosis and moderate right C5-C6 foraminal stenosis. There is mild bilateral C3-C4 and C4-C5 foraminal stenosis. Please, note that C5-C6 findings may also be caused by chronic C5-C6 discitis/osteomyelitis. If there is a clinical suspicion for discitis/osteomyelitis, cervical spine MRI with and without IV contrast should be ordered. 3. No significant spinal canal stenosis. Head CT 12/16/23 22:01 IMPRESSION: 1. No acute intracranial findings and no acute calvarial fractures. 2. Small frontal scalp hematoma. Chest X-Ray 12/16/23 23:22 IMPRESSION: Moderately hyperaerated lungs consistent with deep inspiratory effort vs significant reactive airway disease vs moderate COPD . Laboratory Results WBC 12.45 10^3/uL (3.29-11.43) H 12/16/23 22:15 RBC 3.48 10^6/uL (3.85-5.65) L 12/16/23 22:15 Hgb 10.40 g/dL (11.27-16.99) L 12/16/23 22:15 Hct 30.3 % (36-47) L 12/16/23 22:15 MCV 87.1 fl (85-98) 12/16/23 22:15 MCH 29.9 pg (27-33) 12/16/23 22:15 MCHC 34.3 g/dL (30-55) 12/16/23 22:15 RDW 13.5 % (12.1-15.1) 12/16/23 22:15 Plt Count 341 10^3/cmm (157-399) 12/16/23 22:15 MPV 9.0 fL (7.4-10.4) 12/16/23 22:15 Neut % (Auto) 83.9 % 12/16/23 22:15 Lymph % (Auto) 6.8 % 12/16/23 22:15 [place] % (Auto) 8.4 % 12/16/23 22:15 Eos % (Auto) 0.0 % 12/16/23 22:15 Baso % (Auto) 0.4 % 12/16/23 22:15 Neut # (Auto) 10.45 10^3/uL (1.8-7.7) H 12/16/23 22:15 Lymph # (Auto) 0.9 10^3/uL (0.8-4.8) 12/16/23 22:15 [place] # (Auto) 1.0 10^3/uL (0.2-0.9) H 12/16/23 22:15 Eos # (Auto) 0.0 10^3/uL (0.0-0.8) 12/16/23 22:15 Baso # (Auto) 0.1 10^3/uL (0.0-0.1) 12/16/23 22:15 Nucleated RBC % (auto) 0 % 12/16/23 22:15 Nucleated RBCs # 0.0 /100WBC 12/16/23 22:15 Sodium 138 mmol/L (136-145) 12/16/23 22:15 Potassium 4.4 mmol/L (3.5-5.1) 12/16/23 22:15 Chloride 103 mmol/L (98-107) 12/16/23 22:15 Carbon Dioxide 18 mmol/L (22-29) L 12/16/23 22:15 Anion Gap 21.4 (5-19) H 12/16/23 22:15 BUN 32 mg/dL (6-20) H 12/16/23 22:15 Creatinine 1.8 mg/dL (0.5-0.9) H 12/16/23 22:15 GFR Calculation 30.4 mL/min (90-130) L 12/16/23 22:15 Glucose 243 mg/dL (65-115) H 12/16/23 22:15 POC Glucose 231 mg/dL (70-110) H 12/16/23 22:40 Calculated Osmolality 301 mOsm/kg (285-295) H 12/16/23 22:15 Calcium 9.9 mg/dL (8.5-10.5) 12/16/23 22:15 Total Bilirubin 0.5 mg/dL (0.15-1.2) 12/16/23 22:15 AST 27 U/L (0-32) 12/16/23 22:15 ALT 16 U/L (0-33) 12/16/23 22:15 Alkaline Phosphatase 149 U/L (35-105) H 12/16/23 22:15 Creatine Kinase 659 U/L (26-192) H* 12/16/23 22:15 Total Protein 8.0 g/dL (6.6-8.7) 12/16/23 22:15 Albumin 4.2 g/dL (3.5-5.2) 12/16/23 22:15 Globulin 3.8 g/dL (1.3-4.6) 12/16/23 22:15 Urine Color Yellow (Yellow) 12/16/23 22:20 Urine Appearance Clear (CLEAR) 12/16/23 22:20 Urine pH 6 (5-7) 12/16/23 22:20 Ur Specific [place] 1.015 (1.005-1.030) 12/16/23 22:20 Urine Protein 3+ (Negative) H 12/16/23 22:20 Urine Glucose (UA) 2+ (Normal) H 12/16/23 22:20 Urine Ketones Negative (Negative) 12/16/23 22:20 Urine Blood 3+ (Negative) H 12/16/23 22:20 Urine Nitrate Negative (Negative) 12/16/23 22:20 Urine Bilirubin Neg (Negative) 12/16/23 22:20 Urine Urobilinogen Neg mg/dL (Negative) 12/16/23 22:20 Ur Leukocyte Esterase Negative (Negative) 12/16/23 22:20 Urine RBC 0-4 /hpf (0-2) H 12/16/23 22:20 Urine WBC 0-4 /hpf (0-5) H 12/16/23 22:20 Ur Squamous Epith Cells 0-4 /hpf (0-5) H 12/16/23 22:20 Amorphous Sediment Not Reportable 12/16/23 22:20 Urine Bacteria None /hpf (NONE) 12/16/23 22:20 Urine Opiates Screen Positive ng/mL (Negative) H 12/16/23 22:20 Ur Barbiturates Screen Negative ng/mL (Negative) 12/16/23 22:20 Ur Phencyclidine Scrn Negative ng/mL (Negative) 12/16/23 22:20 Ur Amphetamines Screen Negative ng/mL (Negative) 12/16/23 22:20 U Benzodiazepines Scrn Negative ng/mL (Negative) 12/16/23 22:20 Urine Cocaine Screen Negative ng/mL (Negative) 12/16/23 22:20 U Marijuana (THC) Screen Positive ng/mL (Negative) H 12/16/23 22:20 Ethyl Alcohol < 10 mg/dL (0-10) 12/16/23 22:15 Serum Ketones Negative (Negative) 12/16/23 22:15 Discharge Plan Discharge Patient Disposition: Home Clinical Impression: Seizure-like activity, Hypertension, Elevated CK, Acute kidney insufficiency Condition: Stable Prescriptions: No Action (DME) Comfort EZ Pen [place] 33 gauge x 1/4 needle See Rx Instructions .ROUTE .MEDSUPPLY Qty: 100 2RF Rx Instructions: As directed duloxetine [Cymbalta] 60 mg capsule,delayed release(DR/EC) 60 mg PO BID metoprolol tartrate 25 mg tablet 25 mg PO BID Qty: 60 6RF atorvastatin 20 mg tablet 20 mg PO DAILY Qty: 30 6RF (DME) Blood Glucose Test Strip See Rx Instructions .Route Qty: 100 11RF Rx Instructions: Use with meter to test 3 times a day. ropinirole 1 mg tablet 1 mg PO BEDTIME 30 Days Qty: 30 1RF diclofenac sodium 75 mg tablet,delayed release (DR/EC) 75 mg PO Q12H PRN (Reason: pain) Qty: 20 0RF promethazine 25 mg tablet 25 mg PO Q6H PRN (Reason: Nausea) cyclobenzaprine 10 mg tablet 10 mg PO TID PRN (Reason: Muscle Spasms) Lantus Solostar U-100 Insulin 100 unit/mL (3 mL) insulin pen 20 unit SUBCUT BEDTIME Humalog KwikPen Insulin 200 unit/mL (3 mL) Insulin Pen See Rx Instructions .ROUTE .COMPLEX Rx Instructions: sliding scale tid (max of 30 units per day) ondansetron 4 mg tablet,disintegrating 4 mg PO Q8H PRN (Reason: Nausea And Vomiting) aspirin 81 mg tablet,delayed release (DR/EC) 81 mg PO DAILY Qty: 30 0RF isosorbide mononitrate 30 mg tablet extended release 24 hr 30 mg PO DAILY Qty: 30 0RF Discharge Orders: Discharge ED (Routine); Ordered 12/17/23 Ordered By: All Tiwari Referrals: Mora Rodrigues FNP [Primary Care Provider] - 1 week Patient Instructions: Acute Kidney Injury (DC), Seizures Activity Restrictions/Additional Instructions: Please push plenty of fluids and this will help clear your kidneys out. Please take all your medicine as directed. Please keep an eye on your blood pressure. Keep a blood pressure log at least 2 blood pressures per day and take it back with your family practice physician when you show up for your Coding Level of Care Code ED Power Bender Operator for Kim Mitchell
[2023-12-16] MEDS: haloperidol inj 5 mg/mL INJ 1 mL IVP (22:17)
[2023-12-16] MEDS: LORazepam 2 mg/mL INJ 10 mL MDV 1 MG IVP (22:17)
[2023-12-16 22:27] LABS: Basophils # 0.1 10^3/uL (0.0-0.1); Basophils % 0.4 %; Hematocrit 30.3 % (36-47); Lymphocytes # 0.9 10^3/uL (0.8-4.8); Lymphocytes % 6.8 %; Mean Corpuscular HGB Conc 34.3 g/dL (30-55); Mean Corpuscular Hemoglobin 29.9 pg (27-33); Mean Corpuscular Volume 87.1 fl (85-98); Monocytes % 8.4 %; Neutrophils # 10.45 10^3/uL (1.8-7.7); Neutrophils % 83.9 %; Nucleated Red Blood Cells % 0 %; Platelet Count 341 10^3/cmm (157-399); Red Blood Count 3.48 10^6/uL (3.85-5.65); Red Cell Distribution Width 13.5 % (12.1-15.1); White Blood Count 12.45 10^3/uL (3.29-11.43)
[2023-12-16 22:28] VITALS: BP 187/122; PULSE 106; RESP 22; O2SAT 98
[2023-12-16 22:44] LABS: Glucose Point of Care 231 mg/dL (70-110)
[2023-12-16 22:45] LABS: Alanine Aminotransferase 16 U/L (0-33); Albumin Level 4.2 g/dL (3.5-5.2); Alkaline Phosphatase 149 U/L (35-105); Anion Gap 21.4 (5-19); Aspartate Amino Transferase 27 U/L (0-32); Blood Urea Nitrogen 32 mg/dL (6-20); Calcium 9.9 mg/dL (8.5-10.5); Carbon Dioxide 18 mmol/L (22-29); Chloride 103 mmol/L (98-107); Creatinine Clr Calc Pharmacy 37.8139; Globulin 3.8 g/dL (1.3-4.6); Glomerular Filtration Rate 30.4 mL/min (90-130); Glucose 243 mg/dL (65-115); Osmolality Calculated 301 mOsm/kg (285-295); Potassium 4.4 mmol/L (3.5-5.1); Sodium 138 mmol/L (136-145); Total Bilirubin 0.5 mg/dL (0.15-1.2)
[2023-12-16 22:49] LABS: Amphetamines Screen Urine Negative (Negative); Barbiturates Screen Urine Negative (Negative); Benzodiazepines Screen Urine Negative (Negative); Cocaine Screen Urine Negative (Negative); Opiate Screen Urine Positive (Negative); PCP Screen Urine Negative (Negative); THC Screen Urine Positive (Negative)
[2023-12-16 22:49] LABS: Alcohol Level < 10 mg/dL (0-10)
[2023-12-16 22:50] LABS: Creatine Phosphokinase 659 U/L (26-192)
[2023-12-16 22:59] LABS: Add Urine Microscopic? YES; Bilirubin Urine Neg (Negative); Blood Urine 3+ (Negative); Glucose Urine UA 2+ (Normal); Ketones Urine Negative (Negative); Leukocyte Esterase Urine Negative (Negative); Nitrate Urine Negative (Negative); Protein Urine 3+ (Negative); Specific Gravity, Urine 1.015 (1.005-1.030); Urine Appearance Clear (CLEAR); Urine Color Yellow (Yellow); Urobilinogen Urine Neg (Negative); pH Urine 6 (5-7)
[2023-12-16 23:00] LABS: Add Urine Culture? No; RBC Urine 0-4 /hpf (0-2); Squamous Epithelial Cell Urine 0-4 /hpf (0-5); WBC Urine 0-4 /hpf (0-5)
[2023-12-16 23:13] VITALS: PULSE 103; RESP 20; O2SAT 96
--- NOTE | 2023-12-16 23:22 | XRR_ITS ---
PROCEDURE INFORMATION: Exam: XR Chest Exam date and time: 12/17/2023 12:32 AM Age: 43 years old Clinical indication: Other: Seizure; Prior surgery; Surgery date: 6+ months; Surgery type: Stent TECHNIQUE: Imaging protocol: Radiologic exam of the chest. Views: 1 view. COMPARISON: CR XR chest 1V portable [id number] 06/26/2022 12:24 PM FINDINGS: Lungs: Moderately hyperaerated lungs consistent with deep inspiratory effort vs significant reactive airway disease vs moderate COPD . Pleural spaces: Unremarkable. No pleural effusion. No pneumothorax. Heart/Mediastinum: Unremarkable. No cardiomegaly. Bones/joints: Mild thoracic spondylosis. XR/XR chest 1V portable [id number] IMPRESSION: Moderately hyperaerated lungs consistent with deep inspiratory effort vs significant reactive airway disease vs moderate COPD .
[2023-12-16 23:30] LABS: Ketone (Acetest) Serum Negative (Negative)
[2023-12-17] VITALS: BP 209/110; PULSE 105; RESP 18; O2SAT 100
[2023-12-17] MEDS: sodium chloride 0.9% 1,000 ML 999 ML IV (00:04)
[2023-12-17] MEDS: ondansetron 2 mg/ML SDV 2 mL 4 MG IVP (00:47)
[2023-12-17 00:54] VITALS: BP 183/112; PULSE 112; RESP 16; O2SAT 100
[2023-12-17] MEDS: orphenadrine 30 mg/mL Inj 2 mL 60 MG IVP (01:07)
[2023-12-17] MEDS: metoprolol tartrate 25 mg Tablet PO (01:07)
[2023-12-17] MEDS: haloperidol inj 5 mg/mL INJ 1 mL IVP (01:23)
[2023-12-17] MEDS: LORazepam 2 mg/mL INJ 10 mL MDV IV (01:23)
[2023-12-17 01:34] VITALS: BP 199/124; PULSE 97; RESP 20; O2SAT 100
--- NOTE | 2023-12-17 01:36 | PC.NURSE ---
I came out of another patient room to find that the tech and student were in room with patient. They stated the patient pulled their IV and was attempting to crawl out of bed. Patient was again uncooperative and had pulled 1 IV, all monitoring equipment and was pulling at sheets and gown. Patient would not answer staff and had to be asked multiple times before she would answer. Patient would then answer in an escalated tone. Staff attempted multiple times to de-escalate the situation. Patient continued to try to hang off the edge of the bed.
[2023-12-17 02:33] VITALS: BP 178/104; PULSE 87; RESP 18; O2SAT 99
== END 2023-12-17 02:34 | disposition home or self-care (01) ==
PROVIDERS: Emergency Provider Physician Assistant; PCP Nurse Practitioner Family
DX: R56.9 Unspecified convulsions (principal); N28.9 Disorder of kidney and ureter, unspecified; I10 Essential (primary) hypertension; R79.89 Other specified abnormal findings of blood chemistry; Z79.82 Long term (current) use of aspirin; Z79.4 Long term (current) use of insulin; Z87.891 Personal history of nicotine dependence; E10.22 Type 1 diabetes mellitus with diabetic chronic kidney disease; I12.9 Hypertensive chronic kidney disease with stage 1 through stage 4 chronic kidney disease, or unspecified chronic kidney disease; N18.2 Chronic kidney disease, stage 2 (mild); E78.5 Hyperlipidemia, unspecified; I25.10 Atherosclerotic heart disease of native coronary artery without angina pectoris
CPT/HCPCS: 36416; 70450; 71045; 72125; 80053; 80306; 80307; 81001; 82009; 82550; 82962; 85025; 93005; 96361; 96374; 96375; 96376; 99285; J1630; J2060; J2360; J2405; J7030

== ENCOUNTER 2024-05-16 18:34 | Inpatient (IN) | payer MEDICAID, SELFPAY ==
[2024-05-16 19:18] VITALS: BP 97/66; PULSE 109; RESP 18; TEMP 37.2; O2SAT 99
--- NOTE | 2024-05-16 19:57 | ED_ITS ---
Documented by User: lAl Tiwari DO 05/16/24 19:58 HPI - Extremity Problem 2 General: Chief complaint: Extremity Injury, Lower Stated complaint: left leg pain Time Seen by Provider: 05/16/24 19:49 History of Present Illness: Patient presents to the ER with complaints of left stump pain. She is a bilateral below the knee amputation. Area swollen tender and fluctuant. No obvious erythema or streaking. Related Data Home Medications Medication Instructions Recorded Confirmed cyclobenzaprine 10 mg tablet 5 mg PO TID PRN Muscle Spasms 06/19/22 05/17/24 ondansetron 4 mg disintegrating 4 mg PO Q8H PRN Nausea And Vomiting 06/19/22 05/17/24 tablet amlodipine 5 mg tablet 5 mg PO ONCE 05/17/24 05/17/24 metoclopramide HCl 10 mg tablet 10 mg PO QID 05/17/24 05/17/24 paroxetine HCl 10 mg tablet 20 mg PO ONCE 05/17/24 05/17/24 pregabalin 50 mg capsule 50 mg PO BID 05/17/24 05/17/24 Previous Rx's Medication Instructions Recorded ropinirole 1 mg tablet 1 mg PO BEDTIME 30 days #30 tabs 09/25/21 Allergies Allergy/AdvReac Type Severity Reaction Status Date / Time morphine Allergy ALGY-Difficulty Verified 06/19/22 11:02 Breathing sulfamethoxazole Allergy ADR-Vomitin Verified 08/14/22 22:19 [From Bactrim] g trimethoprim [From Bactrim] Allergy ADR-Vomitin Verified 08/14/22 22:19 g Review of Systems 2 General: Reports: 10 or more systems reviewed and unremarkable except in HPI and below PFSH ED 2 PFSH: Medical History (Updated 05/17/24 @ 07:16 by Pablito Perry DO) Urinary retention Septic prepatellar bursitis of left knee Chronic pain Hyperglycemia Anemia of chronic disease Insomnia GERD (gastroesophageal reflux disease) ALEJANDRO (generalized anxiety disorder) C. 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 CKD (chronic kidney disease) stage 2, GFR 60-89 ml/min baseline Cr is around 1.0 Diabetic foot ulcer s/p surgical intervention and eventual amputation Hyperlipidemia Coronary artery disease hx of stenting Diabetic gastroparesis Diabetes mellitus type 1 diagnosed age 15, history of peripheral neuropathy, gastroparesis and nephropathy Surgical History Hx of angioplasty H/O esophagogastroduodenoscopy (12/31/20) Bile reflux gastritis, grade B esophagitis Hx of cholecystectomy History of amputation of right forefoot Below-knee amputation of left lower extremity S/P percutaneous endoscopic gastrostomy (PEG) tube placement H/O exploratory laparotomy x 3 Previous section x 3 S/P coronary artery stent placement x 1 Family History Unknown Diabetes extensive, type II Other Congestive heart failure (CHF) Social History Smoking and tobacco/nicotine status: former use of tobacco/nicotine Quit status (tobacco/nicotine): has quit using Former quit date comment: 15 yrs ago Alcohol intake: former Former alcohol use details: 15 yrs ago Substance/Drug Use: current Substance/Drug use frequency: daily Household members: spouse Marital status: Sexually active: Yes (1, ) Female Reproductive History: Date of last menstrual period: 05/13/19 S pontaneous abortions: No Physical Exam 2 Const: COMMON NORMALS: no acute distress, average body habitus, patient oriented x3, no limitations, healthy appearing, alert and well nourished HENMT: COMMON NORMALS: normocephalic, atraumatic, hearing grossly normal bilaterally, external ears normal, Normal external nose present and moist oral mucous membranes HEAD & SCALP: normocephalic and atraumatic NOSE: Normal external nose present EXTERNAL EAR: Yes external ears normal Neck/C-Spine: COMMON NORMALS: no JVD Chest: COMMONS NORMALS: normal inspection of the chest and normal palpation of entire chest wall Resp: COMMON NORMALS: normal respiratory effort, No retractions, No use of accessory muscles and clear to auscultation bilaterally AUSCULTATION: clear to auscultation bilaterally Cardio: COMMON NORMALS: no JVD, regular rate, regular rhythm, S1 normal heart sound present, S2 normal heart sound present, No gallops present (Cardio), No clicks present (Cardio), No murmurs present (Cardio) and No rub (Cardio) R ATE: regular rate RHYTHM: regular rhythm HEART SOUNDS: S1 normal heart sound present and S2 normal heart sound present GI: COMMON NORMALS: Normal to inspection, nondistended, normoactive bowel sounds present, Soft to palpation, non-tender, No hepatosplenomegaly present and no masses PALPATION: Yes Soft to palpation and Yes No hepatosplenomegaly present Extremity: NARRATIVE EXTREMITY EXAM: Left lower extremity stump warm fluctuant swollen tender to palpate no obvious erythema or streaking Neuro: COMMON NORMALS: patient oriented x3 SENSORIUM/ORIENTATION: Yes alert Course 2 Vital Signs: Vital signs: Vital Signs Temperature 97.3 F L 05/17/24 14:03 Pulse Rate 79 05/17/24 15:39 Respiratory Rate 17 05/17/24 15:39 Blood Pressure 141/73 05/17/24 15:39 Pulse Oximetry 98 05/17/24 15:39 Oxygen Delivery Me thod Room Air 05/17/24 15:39 MDM - Extremity (Nontraumatic) Medical Records I reviewed the patient's medical records. Lab Data I reviewed the patient's lab results. 05/16/24 20:11 05/17/24 04:47 Radiology Impressions Lower Extremity CT 05/16/24 20:49 IMPRESSION: 1. Large rim enhancing complex fluid collection in the amputation stump up to 7 x 9 x 7.2 x 5.9 cm, likely due to abscess within an adventitial bursa, rather than hematoma or other noninfected complex fluid collection. 2. Moderate infrapatellar anterior leg subcutaneous density likely due to cellulitis is also noted. Knee MRI 05/17/24 06:59 IMPRESSION: 1. No changes of osteomyelitis. 2. Subcutaneous collection at the stump, that might represent a resolving hematoma versus abscess formation. 3. Subcutaneous edema at the anterior aspect of the leg, that might represent bland edema versus cellulitis. Laboratory Results WBC 19.69 10^3/uL (3.29-11.43) H 05/16/24 20:11 RBC 3.59 10^6/uL (3.85-5.65) L 05/16/24 20:11 Hgb 11.00 g/dL (11.27-16.99) L 05/16/24 20:11 Hct 32.7 % (36-47) L 05/16/24 20:11 MCV 91.1 fl (85-98) 05/16/24 20:11 MCH 30.6 pg (27-33) 05/16/24 20:11 MCHC 33.6 g/dL (30-55) 05/16/24 20:11 RDW 13.2 % (12.1-15.1) 05/16/24 20:11 Plt Count 370 10^3/cmm (157-399) 05/16/24 20:11 MPV 8.7 fL (7.4-10.4) 05/16/24 20:11 Neut % (Auto) 86.4 % 05/16/24 20:11 Lymph % (Auto) 5.2 % 05/16/24 20:11 Crockett % (Auto) 7.6 % 05/16/24 20:11 Eos % (Auto) 0.0 % 05/16/24 20:11 Baso % (Auto) 0.2 % 05/16/24 20:11 Neut # (Auto) 17.01 10^3/uL (1.8-7.7) H 05/16/24 20:11 Lymph # (Auto) 1.0 10^3/uL (0.8-4.8) 05/16/24 20:11 Crockett # (Auto) 1.5 10^3/uL (0.2-0.9) H 05/16/24 20:11 Eos # (Auto) 0.0 10^3/uL (0.0-0.8) 05/16/24 20:11 Baso # (Auto) 0.0 10^3/uL (0.0-0.1) 05/16/24 20:11 Nucleated RBC % (auto) 0 % 05/16/24 20:11 Nucleated RBCs # 0.0 /100WBC 05/16/24 20:11 Sodium 130 mmol/L (136-145) L 05/16/24 20:11 Potassium 3.7 mmol/L (3.5-5.1) 05/16/24 20:11 Chloride 93 mmol/L (98-107) L 05/16/24 20:11 Carbon Dioxide 21 mmol/L (22-29) L 05/16/24 20:11 Anion Gap 19.7 (5-19) H 05/16/24 20:11 BUN 30 mg/dL (6-20) H 05/16/24 20:11 Creatinine 2.2 mg/dL (0.5-0.9) H 05/16/24 20:11 GFR Calculation 24.0 mL/min (90-130) L 05/16/24 20:11 Glucose 98 mg/dL (65-115) 05/16/24 20:11 Calculated Osmolality 276 mOsm/kg (285-295) L 05/16/24 20:11 Lactic Acid 1.3 mmol/L (0.5-2.2) 05/16/24 20:11 Calcium 9.2 mg/dL (8.5-10.5) 05/16/24 20:11 Total Bilirubin 0.8 mg/dL (0.15-1.2) 05/16/24 20:11 AST 31 U/L (0-32) 05/16/24 20:11 ALT 18 U/L (0-33) 05/16/24 20:11 Alkaline Phosphatase 138 U/L (35-105) H 05/16/24 20:11 C-Reactive Protein 135.5 mg/L (0.0-4.9) H 05/16/24 20:11 Total Protein 7.7 g/dL (6.6-8.7) 05/16/24 20:11 Albumin 4.2 g/dL (3.5-5.2) 05/16/24 20:11 Globulin 3.5 g/dL (1.3-4.6) 05/16/24 20:11 Procalcitonin 1.28 ng/mL (0-0.5) H 05/16/24 20:11 All radiology interpretation(s) finalized by discharge Discharge Plan Discharge Patient Disposition: Admitted As Inpatient Admit Provider: Mele Friedman Clinical Impression: Pain of amputation stump of left lower extremity, Abscess of left leg Condition: Stable Coding Level of Care Code ED [facility] for [facility] Documented by User: Pablito Perry DO 05/17/24 16:27 HPI - Extremity Problem 2 General: Chief complaint: Extremity Injury, Lower Stated complaint: left leg pain Time Seen by Provider: 05/16/24 19:49 Related Data Home Medications Medication Instructions Recorded Confirmed cyclobenzaprine 10 mg tablet 5 mg PO TID PRN Muscle Spasms 06/19/22 05/17/24 ondansetron 4 mg disintegrating 4 mg PO Q8H PRN Nausea And Vomiting 06/19/22 05/17/24 tablet amlodipine 5 mg tablet 5 mg PO ONCE 05/17/24 05/17/24 metoclopramide HCl 10 mg tablet 10 mg PO QID 05/17/24 05/17/24 paroxetine HCl 10 mg tablet 20 mg PO ONCE 05/17/24 05/17/24 pregabalin 50 mg capsule 50 mg PO BID 05/17/24 05/17/24 Previous Rx's Medication Instructions Recorded ropinirole 1 mg tablet 1 mg PO BEDTIME 30 days #30 tabs 09/25/21 Allergies Allergy/AdvReac Type Severity Reaction Status Date / Time morphine Allergy ALGY-Difficulty Verified 06/19/22 11:02 Breathing sulfamethoxazole Allergy ADR-Vomitin Verified 08/14/22 22:19 [From Bactrim] g trimethoprim [From Bactrim] Allergy ADR-Vomitin Verified 08/14/22 22:19 g PFSH ED 2 PFSH: Medical History (Updated 05/17/24 @ 07:16 by Pablito Perry DO) Urinary retention Septic prepatellar bursitis of left knee Chronic pain Hyperglycemia Anemia of chronic disease Insomnia GERD (gastroesophageal reflux disease) ALEJANDRO (generalized anxiety disorder) C. 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 CKD (chronic kidney disease) stage 2, GFR 60-89 ml/min baseline Cr is around 1.0 Diabetic foot ulcer s/p surgical intervention and eventual amputation Hyperlipidemia Coronary artery disease hx of stenting Diabetic gastroparesis Diabetes mellitus type 1 diagnosed age 15, history of peripheral neuropathy, gastroparesis and nephropathy Surgical History Hx of angioplasty H/O esophagogastroduodenoscopy (12/31/20) Bile reflux gastritis, grade B esophagitis Hx of cholecystectomy History of amputation of right forefoot Below-knee amputation of left lower extremity S/P percutaneous endoscopic gastrostomy (PEG) tube placement H/O exploratory laparotomy x 3 Previous section x 3 S/P coronary artery stent placement x 1 Family History Unknown Diabetes extensive, type II Other Congestive heart failure (CHF) Social History Smoking and tobacco/nicotine status: former use of tobacco/nicotine Quit status (tobacco/nicotine): has quit using Former quit date comment: 15 yrs ago Alcohol intake: former Former alcohol use details: 15 yrs ago Substance/Drug Use: current Substance/Drug use frequency: daily Household members: spouse Marital status: Sexually active: Yes (1, ) Course 2 Vital Signs: Vital signs: Vital Signs Temperature 97.3 F L 05/17/24 14:03 Pulse Rate 79 05/17/24 15:39 Respiratory Rate 17 05/17/24 15:39 Blood Pressure 141/73 05/17/24 15:39 Pulse Oximetry 98 05/17/24 15:39 Oxygen Delivery Me thod Room Air 05/17/24 15:39 MDM - Extremity (Nontraumatic) Medical Decision Making 44-year-old female checked out at shift change. This patient has left lower extremity stump pain. She is afebrile here. White blood cell count, however, is 20. Hemoglobin 11. Bicarbonate 20, creatinine 2.3 which is an increase in her baseline. CT shows a complex fluid collection in the amputation stump that is decently large. No gas present. It does appear to be an abscess. Consulted orthopedics. Recommendations are IV antibiotics, and she will evaluate the patient in the morning for potential drainage. She also recommends an MRI of the leg/knee. This has been ordered. Antibiotic coverage as ordered. Spoke with hospitalist who will admit the patient. He agrees to see her. Lab Data 05/16/24 20:11 05/17/24 04:47 Radiology Impressions Lower Extremity CT 05/16/24 20:49 IMPRESSION: 1. Large rim enhancing complex fluid collection in the amputation stump up to 7 x 9 x 7.2 x 5.9 cm, likely due to abscess within an adventitial bursa, rather than hematoma or other noninfected complex fluid collection. 2. Moderate infrapatellar anterior leg subcutaneous density likely due to cellulitis is also noted. Knee MRI 05/17/24 06:59 IMPRESSION: 1. No changes of osteomyelitis. 2. Subcutaneous collection at the stump, that might represent a resolving hematoma versus abscess formation. 3. Subcutaneous edema at the anterior aspect of the leg, that might represent bland edema versus cellulitis. Laboratory Results WBC 19.69 10^3/uL (3.29-11.43) H 05/16/24 20:11 RBC 3.59 10^6/uL (3.85-5.65) L 05/16/24 20:11 Hgb 11.00 g/dL (11.27-16.99) L 05/16/24 20:11 Hct 32.7 % (36-47) L 05/16/24 20:11 MCV 91.1 fl (85-98) 05/16/24 20:11 MCH 30.6 pg (27-33) 05/16/24 20:11 MCHC 33.6 g/dL (30-55) 05/16/24 20:11 RDW 13.2 % (12.1-15.1) 05/16/24 20:11 Plt Count 370 10^3/cmm (157-399) 05/16/24 20:11 MPV 8.7 fL (7.4-10.4) 05/16/24 20:11 Neut % (Auto) 86.4 % 05/16/24 20:11 Lymph % (Auto) 5.2 % 05/16/24 20:11 Crockett % (Auto) 7.6 % 05/16/24 20:11 Eos % (Auto) 0.0 % 05/16/24 20:11 Baso % (Auto) 0.2 % 05/16/24 20:11 Neut # (Auto) 17.01 10^3/uL (1.8-7.7) H 05/16/24 20:11 Lymph # (Auto) 1.0 10^3/uL (0.8-4.8) 05/16/24 20:11 Crockett # (Auto) 1.5 10^3/uL (0.2-0.9) H 05/16/24 20:11 Eos # (Auto) 0.0 10^3/uL (0.0-0.8) 05/16/24 20:11 Baso # (Auto) 0.0 10^3/uL (0.0-0.1) 05/16/24 20:11 Nucleated RBC % (auto) 0 % 05/16/24 20:11 Nucleated RBCs # 0.0 /100WBC 05/16/24 20:11 Sodium 130 mmol/L (136-145) L 05/16/24 20:11 Potassium 3.7 mmol/L (3.5-5.1) 05/16/24 20:11 Chloride 93 mmol/L (98-107) L 05/16/24 20:11 Carbon Dioxide 21 mmol/L (22-29) L 05/16/24 20:11 Anion Gap 19.7 (5-19) H 05/16/24 20:11 BUN 30 mg/dL (6-20) H 05/16/24 20:11 Creatinine 2.2 mg/dL (0.5-0.9) H 05/16/24 20:11 GFR Calculation 24.0 mL/min (90-130) L 05/16/24 20:11 Glucose 98 mg/dL (65-115) 05/16/24 20:11 Calculated Osmolality 276 mOsm/kg (285-295) L 05/16/24 20:11 Lactic Acid 1.3 mmol/L (0.5-2.2) 05/16/24 20:11 Calcium 9.2 mg/dL (8.5-10.5) 05/16/24 20:11 Total Bilirubin 0.8 mg/dL (0.15-1.2) 05/16/24 20:11 AST 31 U/L (0-32) 05/16/24 20:11 ALT 18 U/L (0-33) 05/16/24 20:11 Alkaline Phosphatase 138 U/L (35-105) H 05/16/24 20:11 C-Reactive Protein 135.5 mg/L (0.0-4.9) H 05/16/24 20:11 Total Protein 7.7 g/dL (6.6-8.7) 05/16/24 20:11 Albumin 4.2 g/dL (3.5-5.2) 05/16/24 20:11 Globulin 3.5 g/dL (1.3-4.6) 05/16/24 20:11 Procalcitonin 1.28 ng/mL (0-0.5) H 05/16/24 20:11 Discharge Plan Discharge Patient Disposition: Admitted As Inpatient Admit Provider: Mele Friedman Clinical Impression: Pain of amputation stump of left lower extremity, Abscess of left leg Condition: Stable Coding Level of Care Code ED [facility] for [facility]
[2024-05-16 20:20] LABS: Basophils % 0.2 %; Hematocrit 32.7 % (36-47); Lymphocytes % 5.2 %; Mean Corpuscular HGB Conc 33.6 g/dL (30-55); Mean Corpuscular Hemoglobin 30.6 pg (27-33); Mean Corpuscular Volume 91.1 fl (85-98); Mean Platelet Volume 8.7 fL (7.4-10.4); Monocytes # 1.5 10^3/uL (0.2-0.9); Monocytes % 7.6 %; Neutrophils # 17.01 10^3/uL (1.8-7.7); Neutrophils % 86.4 %; Nucleated Red Blood Cells % 0 %; Platelet Count 370 10^3/cmm (157-399); Red Blood Count 3.59 10^6/uL (3.85-5.65); Red Cell Distribution Width 13.2 % (12.1-15.1); White Blood Count 19.69 10^3/uL (3.29-11.43)
[2024-05-16 20:40] LABS: Alanine Aminotransferase 18 U/L (0-33); Albumin Level 4.2 g/dL (3.5-5.2); Alkaline Phosphatase 138 U/L (35-105); Anion Gap 19.7 (5-19); Aspartate Amino Transferase 31 U/L (0-32); Blood Urea Nitrogen 30 mg/dL (6-20); Calcium 9.2 mg/dL (8.5-10.5); Carbon Dioxide 21 mmol/L (22-29); Chloride 93 mmol/L (98-107); Globulin 3.5 g/dL (1.3-4.6); Glucose 98 mg/dL (65-115); Osmolality Calculated 276 mOsm/kg (285-295); Potassium 3.7 mmol/L (3.5-5.1); Sodium 130 mmol/L (136-145); Total Bilirubin 0.8 mg/dL (0.15-1.2); Total Protein 7.7 g/dL (6.6-8.7)
[2024-05-16 20:41] LABS: Lactic Sepsis W/Reflex 1.3 mmol/L (0.5-2.2)
[2024-05-16 20:47] LABS: Procalcitonin 1.28 ng/mL (0-0.5)
--- NOTE | 2024-05-16 20:49 | CTR_ITS ---
PROCEDURE INFORMATION: Exam: CT Left Lower Extremity, Thigh Exam date and time: 05/16/2024 8:57 PM Age: 44 years old Clinical indication: Pain; Lower leg; Left; Prior surgery; Surgery date: 6+ months; Surgery type: Amputation; Additional info: Stumb abscess vs cellulitis TECHNIQUE: Imaging protocol: CT of the left lower extremity without contrast was performed. Exam focused on the thigh. Radiation optimization: All CT scans at this facility use at least one of these dose optimization techniques: automated exposure control; mA and/or kV adjustment per patient size (includes targeted exams where dose is matched to clinical indication); or iterative reconstruction. COMPARISON: CT lower leg LT w con [id number] 04/16/2022 4:45 PM RADIATION DOSE METRICS: Total DLP (mGy-cm): 772.6 FINDINGS: Bones/joints: No significant knee joint effusion. Mild narrowing of the lateral patellofemoral facet and medial tibiofemoral compartment. No clear-cut osseous erosion to suggest osteomyelitis on CT. Soft tissues: Mild prepatellar soft tissue edema. Extensive soft tissue edema in the infrapatellar anterior leg. Superimposed rim enhancing fluid collection of the stump measuring up to 7.9 x 7.2 x 5.9 cm consistent with complex fluid/multiloculated abscess. Vasculature: Moderate atherosclerotic calcification of the femoral and popliteal and residual calf arteries. CT/CT lower leg LT wo con* [id number] IMPRESSION: 1. Large rim enhancing complex fluid collection in the amputation stump up to 7 x 9 x 7.2 x 5.9 cm, likely due to abscess within an adventitial bursa, rather than hematoma or other noninfected complex fluid collection. 2. Moderate infrapatellar anterior leg subcutaneous density likely due to cellulitis is also noted.
[2024-05-16 20:53] VITALS: RESP 18
[2024-05-16] MEDS: HYDROmorphone 1 mg/mL INJ 1 mL 0.2 MG IVP (20:53)
[2024-05-16 21:10] LABS: C Reactive Protein 135.5 mg/L (0.0-4.9)
--- NOTE | 2024-05-16 22:52 | PC.NURSE ---
Patient placed herself in the floor, denies falling. States that the bed was uncomfortable and refused to move back into her bed. Patient in pain, requesting pain meds at this time.
[2024-05-16] MEDS: HYDROmorphone 1 mg/mL INJ 1 mL 2 MG IM (23:31)
[2024-05-17] VITALS (25 sets, daily range): BP systolic 115–159; BP diastolic 67–96; PULSE 74–92; RESP 16–20; TEMP 36.3–36.8; O2SAT 97–100; BMI 28.8
[2024-05-17] MEDS: piperacillin-tazobactam 4.5 GM in sodium chloride 0.9% (plus) 50 ML IV (01:39)
--- NOTE | 2024-05-17 02:16 | PC.NURSE ---
Dr Perry at this time told nursing staff that he did not feel that 96 hour hold was necessary in order to admit patient to floor.
--- NOTE | 2024-05-17 02:24 | PC.NURSE ---
Report was called to Kristine WOOD on Med-Surg. All questions and concerns were addressed at time of report.
[2024-05-17] MEDS: vancomycin 1,250 MG/250 ML PIGGYBACK 166.67 MG IV (02:30)
[2024-05-17] MEDS: HYDROmorphone 1 mg/mL INJ 1 mL IVP ×3 (02:30→14:35)
--- NOTE | 2024-05-17 03:46 | P.HP_ITS ---
Providers/Chief Complaint 2 Admitting Physician: Mele Friedman Primary Care Provider: Monika Simpson MD Chief Complaint: left leg pain History of Present Illness 44-year-old lady with history of diabetes, with complications with CKD, retinopathy, CAD status post tenting, gastroparesis, intermittent vomiting, bilateral BKA, HTN, C. difficile colitis, GERD, PTSD, self harming behavior, suicidal ideation. She had previously had prepatellar bursitis requiring surgical washout back in 2021 with finding of MRSA on cultures. She comes into the hospital due to pain, swelling, redness of the left anterior stump. Found to have leukocytosis 19.69 sinus tachycardia 109. FIONA, creatinine 2.2 BUN 30, CRP 135.5. Procalcitonin 1.28. Alk phos 138. Lower extremity CT with large rim-enhancing complex fluid collection in the amputation stump up to 7 x 9 x 7 0.2 x 5.9 cm likely due to abscess within adventitial bursa or other without hematoma or other noninfectious complex collection. Moderate infrapatellar anterior leg subcutaneous density likely due to cellulitis also noted. She states she has not required insulin and close to about a year Review of Systems 2 Const: Denies: fever(s), chills, body aches or malaise ENMT: Denies: throat pain Card: Denies: chest pain, edema, pre-syncope or dyspnea on exertion Resp: Denies: dyspnea, productive cough, change in phlegm color or hemoptysis GI: Reports: nausea and vomiting (Due to gastroparesis); Denies: abdominal pain, diarrhea, constipation, hematochezia or melena : Denies: flank pain, urinary frequency or hematuria Musc: Reports: extremity pain and extremity swelling; Denies: back pain Skin/Breast: Denies: new lesions Neuro: Denies: headache(s), dizziness or confusion Endo: Denies: polyuria or polydipsia Medications/Allergies Home Medications Medication Instructions Recorded Confirmed Last Taken Type ropinirole 1 mg tablet 1 mg PO BEDTIME 30 days #30 tabs 09/25/21 05/17/24 05/16/24 Rx cyclobenzaprine 10 mg tablet 5 mg PO TID PRN Muscle Spasms 06/19/22 05/17/24 05/16/24 History ondansetron 4 mg disintegrating 4 mg PO Q8H PRN Nausea And Vomiting 06/19/22 05/17/24 Unknown History tablet amlodipine 5 mg tablet 5 mg PO ONCE 05/17/24 05/17/24 05/16/24 History metoclopramide HCl 10 mg tablet 10 mg PO QID 05/17/24 05/17/24 05/16/24 History paroxetine HCl 10 mg tablet 20 mg PO ONCE 05/17/24 05/17/24 05/16/24 History pregabalin 50 mg capsule 50 mg PO BID 05/17/24 05/17/24 05/16/24 History Allergies Allergy/AdvReac Type Severity Reaction Status Date / Time morphine Allergy ALGY-Difficulty Verified 06/19/22 11:02 Breathing sulfamethoxazole Allergy ADR-Vomitin Verified 08/14/22 22:19 [From Bactrim] g trimethoprim [From Bactrim] Allergy ADR-Vomitin Verified 08/14/22 22:19 g PFSH Acute 2 PFSH: Medical History (Updated 05/17/24 @ 04:05 by Mele Friedman MD) Urinary retention Septic prepatellar bursitis of left knee Chronic pain Hyperglycemia Anemia of chronic disease Insomnia GERD (gastroesophageal reflux disease) ALEJANDRO (generalized anxiety disorder) C. 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 CKD (chronic kidney disease) stage 2, GFR 60-89 ml/min baseline Cr is around 1.0 Diabetic foot ulcer s/p surgical intervention and eventual amputation Hyperlipidemia Coronary artery disease hx of stenting Diabetic gastroparesis Diabetes mellitus type 1 diagnosed age 15, history of peripheral neuropathy, gastroparesis and nephropathy Surgical History Hx of angioplasty H/O esophagogastroduodenoscopy (12/31/20) Bile reflux gastritis, grade B esophagitis Hx of cholecystectomy History of amputation of right forefoot Below-knee amputation of left lower extremity S/P percutaneous endoscopic gastrostomy (PEG) tube placement H/O exploratory laparotomy x 3 Previous section x 3 S/P coronary artery stent placement x 1 Family History Unknown Diabetes extensive, type II Other Congestive heart failure (CHF) Social History Smoking and tobacco/nicotine status: former use of tobacco/nicotine Quit status (tobacco/nicotine): has quit using Former quit date comment: 15 yrs ago Alcohol intake: former Former alcohol use details: 15 yrs ago Substance/Drug Use: current Substance/Drug use frequency: daily Household members: spouse Marital status: Sexually active: Yes (1, ) Female Reproductive History: Date of last menstrual period: 05/13/19 S pontaneous abortions: No Vitals/I&O/Wt Last Vital Signs Temp 98.9 F 05/16/24 19:18 Pulse 89 05/17/24 03:03 Resp 18 05/17/24 02:30 BP 154/93 05/17/24 03:03 Pulse Ox 100 05/17/24 03:03 O2 Del Method Room Air 05/17/24 02:51 05/16/24 05/16/24 05/17/24 14:59 22:59 06:59 Intake Total 50 / 50 Balance 50 / 50 Weight last 48 hrs Weight 62.596 kg Weight 62.596 kg Physical Exam 2 Narrative: Accompanied by her . Const: COMMON NORMALS: patient oriented x3 and alert GENERAL APPEARANCE: c ooperative ORIENTATION/CONSCIOUSNESS: Yes awake HENMT: COMMON NORMALS: oropharynx normal Neck/C-Spine: COMMON NORMALS: no JVD Resp: COMMON NORMALS: normal respiratory effort and clear to auscultation bilaterally AUSCULTATION: clear to auscultation bilaterally Cardio: COMMON NORMALS: no JVD, regular rhythm, S1 normal heart sound present, S2 normal heart sound present and No murmurs present (Cardio) RHYTHM: regular rhythm HEART SOUNDS: S1 normal heart sound present and S2 normal heart sound present GI: COMMON NORMALS: Normal to inspection, nondistended, normoactive bowel sounds present, Soft to palpation and non-tender PALPATION: Yes Soft to palpation Extremity: COMMON NORMALS: no joint enlargement and no pedal edema N ARRATIVE EXTREMITY EXAM: BL BKA OTHER: L stump with swelling, erythema, warmth, tenderness, no open ulceration. Neuro: COMMON NORMALS: patient oriented x3 and moves all extremities S ENSORIUM/ORIENTATION: Yes alert Skin: OTHER: Redness, tenderness, swelling over anterior left stop. Data 05/16/24 20:11 05/16/24 20:11 Micro: Microbiology 05/16/24 20:09 Blood Culture - Preliminary Blood SPECIMEN COLLECTED 05/16/24 20:11 Blood Culture - Preliminary Blood SPECIMEN COLLECTED A&P Assessment and plan (1) Cellulitis and abscess of left lower extremity: Pain swelling, tenderness, redness, warmth of left anterior BKA stump. Per review of prior orthopedic note, prepatellar bursitis in 2021 with MRSA infection requiring washout. Lower extremity CT with large rim-enhancing complex fluid collection in the amputation stump up to 7 x 9 x 7 0.2 x 5.9 cm likely due to abscess within adventitial bursa or other without hematoma or other noninfectious complex collection. Moderate infrapatellar anterior leg subcutaneous density likely due to cellulitis also noted. Reviewed vitals, CBC, CMP, lower extremity CT, with sepsis, WBC 19.69, tachycardia 109. Procalcitonin 1.28. CRP 135.5. Alk phos elevated at 138. Lower extremity CT performed without contrast due to FIONA. Reviewed ER note, discussed with ER provider. Concern for possibility of bone infection as well but with FIONA on CKD. Recheck CMP. Please obtain MRI with contrast once FIONA improves to further assess for osteomyelitis. Pending orthopedic assessment for washout, debridement, consideration of revision of hide amputation. Received Zosyn, Vanco will continue cefepime, vancomycin with risk of kidney injury. Monitor for risk of encephalopathy with cefepime. Will keep n.p.o. (2) Acute kidney injury superimposed on CKD: Reviewed chemistry, potassium, bicarb, anion gap, BUN, creatinine. Complicated by anion gap metabolic acidosis, bicarb 21, anion gap 19.7. Creatinine 2.2, BUN 30, bicarb 21, anion gap 19.7. Sodium 130, potassium is okay. Has been off insulin, blood glucose appears to be under control for now at least. Treat infection. Recheck renal function. Monitor JES. Reviewed UA. Obtain urine sodium, urine creatinine. Does not take NSAIDs due to CKD. (3) Suicidal ideation: History of suicidal ideation and recent suicidal ideation without active plan. However, active self harming behavior. Please obtain psychiatry consultation in the morning. (4) Self-harming behavior: Multiple cut arambula on left thigh, states last time she she cut herself was yesterday. One-to-one sitter. Please obtain psychiatry consultation in the morning. Plan Diabetes, with complications. Has been off insulin for close to a year. CKD, Retinopathy, CAD status post tenting, appears he is not on antiplatelet medication? Please discuss with her if this was been discontinued for some reason. Gastroparesis, intermittent vomiting, continue Reglan. Bilateral BKA, HTN, continue amlodipine. C. difficile colitis, currently no diarrhea. GERD, PTSD, Depression: Continue paroxetine Chronic pain syndrome Attestations 2 Medical Necessity Statement*: Admission of over 2 midnights anticipated for assessment management of left anterior stump abscess, cellulitis, possible bone infection in a lady with underlying diabetes, FIONA over CKD, suicidal ideation and self harming behavior with additional comorbidities as above. Diagnoses Cellulitis and abscess of left lower extremity L03.116; L02.416 Acute kidney injury superimposed on CKD N17.9; N18.9 Suicidal ideation R45.851 Self-harming behavior
[2024-05-17 03:53] LABS: Bilirubin Urine Negative (Negative); Blood Urine 1+ (Negative); Glucose Urine UA Negative (Normal); Ketones Urine Trace (Negative); Leukocyte Esterase Urine Trace (Negative); Nitrate Urine Negative (Negative); Protein Urine 3+ (Negative); Specific Gravity, Urine 1.019 (1.005-1.030); Urine Appearance Clear (CLEAR); Urine Color Yellow (Yellow); pH Urine 5.5 (5-7)
[2024-05-17 03:58] LABS: Add Urine Microscopic? YES; Bacteria Urine None Seen /hpf; Hyaline Casts Urine 4.52 /lpf; RBC Urine 0-2 /hpf (0-2); Squamous Epithelial Cell Urine 0-5 /hpf (0-5)
[2024-05-17 04:02] LABS: Amphetamines Screen Urine Negative (Negative); Barbiturates Screen Urine Negative (Negative); Benzodiazepines Screen Urine Negative (Negative); Cocaine Screen Urine Negative (Negative); Opiate Screen Urine Positive (Negative); PCP Screen Urine Negative (Negative); THC Screen Urine Positive (Negative)
[2024-05-17 04:56] LABS: Urine Creatinine 177 mg/dL (28-217); Urine Random Sodium 32 mmol/L
[2024-05-17] MEDS: HYDROmorphone 1 mg/mL INJ 1 mL 0.5 MG IVP (05:32)
[2024-05-17] MEDS: cefepime 1,000 MG in sodium chloride 0.9% (plus) 50 ML 100 MG IV (05:33)
[2024-05-17] MEDS: PARoxetine 20 mg Tablet PO (05:39)
[2024-05-17 05:49] LABS: Alanine Aminotransferase 30 U/L (0-33); Albumin Level 3.8 g/dL (3.5-5.2); Alkaline Phosphatase 149 U/L (35-105); Anion Gap 16.4 (5-19); Aspartate Amino Transferase 60 U/L (0-32); Blood Urea Nitrogen 32 mg/dL (6-20); Calcium 8.9 mg/dL (8.5-10.5); Carbon Dioxide 20 mmol/L (22-29); Chloride 99 mmol/L (98-107); Creatinine Clr Calc Pharmacy 30.2452; Globulin 3.1 g/dL (1.3-4.6); Glomerular Filtration Rate 22.8 mL/min (90-130); Glucose 90 mg/dL (65-115); Osmolality Calculated 280 mOsm/kg (285-295); Potassium 3.4 mmol/L (3.5-5.1); Sodium 132 mmol/L (136-145); Total Protein 6.9 g/dL (6.6-8.7)
--- NOTE | 2024-05-17 06:59 | MRR_ITS ---
PROCEDURE INFORMATION: Exam: MR Left Lower Extremity Joint Without Contrast, Knee Exam date and time: 05/17/2024 9:13 AM Age: 44 years old Clinical indication: Edema and other: Abcess of stump, possible bony involvement; Yes, it is localized; Prior surgery; Surgery date: 6+ months; Surgery type: Amputation; Additional info: L memo bka with stump abscess. Bone involvement? TECHNIQUE: Imaging protocol: Magnetic resonance imaging of the left lower extremity joint without contrast. Exam focused on the knee. COMPARISON: CT lower leg LT w con [id number] 04/16/2022 4:45 PM FINDINGS: Bones/joints: Unremarkable. No bone abnormalities. Articular cartilage is normal. No joint effusion. Medial meniscus: Degeneration of medial meniscus. Lateral meniscus: Degeneration of the lateral meniscus. Anterior cruciate ligament: Unremarkable. No tear. Posterior cruciate ligament: Unremarkable. No tear. Medial capsule and supporting structures: Unremarkable. No tear. Lateral capsule and supporting structures: Unremarkable. No tear. Extensor mechanism of knee: Unremarkable. No tear. Soft tissues: There is a subcutaneous collection at the stump measuring 7.6 x 5.3 x 5.1 cm. There is subcutaneous edema of the anterior aspect of the leg with fluid but no organized collections. Mild edema of the visualized muscles of the leg, consistent with myositis but no intramuscular collection. MR/MR knee LT wo con* [id number] IMPRESSION: 1. No changes of osteomyelitis. 2. Subcutaneous collection at the stump, that might represent a resolving hematoma versus abscess formation. 3. Subcutaneous edema at the anterior aspect of the leg, that might represent bland edema versus cellulitis.
[2024-05-17] MEDS: amlodipine 5 mg Tablet PO (08:24)
[2024-05-17] MEDS: metoclopramide 10 mg Tablet PO ×3 (08:24→21:38)
[2024-05-17] MEDS: pregabalin 50 mg Capsule PO ×2 (08:24→16:59)
[2024-05-17] MEDS: acetaminophen 325 mg Tablet 650 MG PO (08:24)
[2024-05-17 08:42] LABS: Erythrocyte Sedimentation Rate 32 mm/hr (0-15)
--- NOTE | 2024-05-17 10:40 | P.CONIM_ITS ---
Providers/Reason For Consult 2 Consulting Physician/Specialty*: Shannon Jett MD Reason for Consult*: Fluid collection left BKA stump Requesting Physician: Dr. Pablito Perry Attending Physician: Randy Chung MD Primary Care Provider: Monika Simpson MD History of Present Illness History of Present Illness Cherrie Solomon is a 44 year old female who has previously undergone bilateral below-knee amputations. Both of these amputations have been done in [place]. 1 at [facility] and the other at [facility]. The patient has been awaiting prostheses and in discussion with her, she notes that she essentially crawls at home as she only has 1 prosthesis. Her current work is being done in [place] regarding this. She presented to the emergency department complaining of pain and swelling in the anterior aspect of the left BKA stump. Previously, Dr. Salas took her for a prepatellar bursitis. Workup to date has included an MRI and CT scan of this lower extremity. The fluid collection is noted to be approximately 7 by 9 x 7 x 6 cm. She has a leukocytosis. She was admitted to the hospitalist team. MRI was obtained after her admission to the hospital. Her significant past medical history includes diabetes, chronic kidney disease, retinopathy, coronary artery disease with history of stents, gastroparesis, intermittent vomiting, hypertension, GERD, as well as self harming behavior and suicidal ideation. Review of Systems 2 General: Reports: 10 or more systems reviewed and unremarkable except in HPI and below Const: Denies: fever(s), chills, body aches or malaise Eyes: Denies: photophobia ENMT: Denies: throat pain or enlarged tonsils Card: Denies: chest pain, edema, pre-syncope or dyspnea on exertion Resp: Denies: dyspnea, productive cough, change in phlegm color or hemoptysis GI: Reports: nausea and vomiting (Due to gastroparesis); Denies: abdominal pain, diarrhea, constipation, hematochezia or melena : Denies: flank pain, urinary frequency or hematuria Musc: Reports: extremity pain and extremity swelling; Denies: back pain or joint warmth Skin/Breast: Denies: rash or new lesions Neuro: Denies: headache(s), dizziness or confusion Endo: Denies: polyuria or polydipsia All/Imm: Denies: acute wheezing Medications/Allergies Home Medications Medication Instructions Recorded Confirmed Last Taken Type ropinirole 1 mg tablet 1 mg PO BEDTIME 30 days #30 tabs 09/25/21 05/17/24 05/16/24 Rx cyclobenzaprine 10 mg tablet 5 mg PO TID PRN Muscle Spasms 06/19/22 05/17/24 05/16/24 History ondansetron 4 mg disintegrating 4 mg PO Q8H PRN Nausea And Vomiting 06/19/22 05/17/24 Unknown History tablet amlodipine 5 mg tablet 5 mg PO ONCE 05/17/24 05/17/24 05/16/24 History metoclopramide HCl 10 mg tablet 10 mg PO QID 05/17/24 05/17/24 05/16/24 History paroxetine HCl 10 mg tablet 20 mg PO ONCE 05/17/24 05/17/24 05/16/24 History pregabalin 50 mg capsule 50 mg PO BID 05/17/24 05/17/24 05/16/24 History Allergies Allergy/AdvReac Type Severity Reaction Status Date / Time morphine Allergy ALGY-Difficulty Verified 06/19/22 11:02 Breathing sulfamethoxazole Allergy ADR-Vomitin Verified 08/14/22 22:19 [From Bactrim] g trimethoprim [From Bactrim] Allergy ADR-Vomitin Verified 08/14/22 22:19 g Current Medications Generic Name Dose Route Start Last Admin Trade Name Freq PRN Reason Stop Dose Admin Acetaminophen 650 mg 05/17/24 04:10 05/17/24 08:24 Acetaminophen 325 Mg Tablet PO 650 mg Q6H PRN Administration Mild/Mod Pain Or Temp >/= 101 Amlodipine Besylate 5 mg 05/17/24 09:00 05/17/24 08:24 Amlodipine 5 Mg Tablet PO 5 mg DAILY DAWSON Administration Enoxaparin Sodium 30 mg 05/17/24 09:00 05/17/24 08:24 Enoxaparin 30 Mg/0.3 Ml Syringe SUBCUT Not Given Q24H DAWSON Hydromorphone HCl 1 mg 05/17/24 09:53 05/17/24 10:18 Hydromorphone 1 Mg/Ml Inj 1 Ml IVP 1 mg Q4H PRN Administration SEVERE PAIN Cefepime HCl 1,000 mg/ Sodium 50 mls @ 100 mls/hr 05/17/24 06:00 05/17/24 06:40 Chloride IV Infused Q24H DAWSON Infusion Protocol Metoclopramide HCl 10 mg 05/17/24 09:00 05/17/24 08:24 Metoclopramide 10 Mg Tablet PO 10 mg QID DAWSON Administration Pregabalin 50 mg 05/17/24 09:00 05/17/24 08:24 Pregabalin 50 Mg Capsule PO 50 mg BID DAWSON Administration PFSH Acute 2 PFSH: Medical History (Updated 05/17/24 @ 07:16 by Pablito Perry DO) Urinary retention Septic prepatellar bursitis of left knee Chronic pain Hyperglycemia Anemia of chronic disease Insomnia GERD (gastroesophageal reflux disease) ALEJANDRO (generalized anxiety disorder) C. 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 CKD (chronic kidney disease) stage 2, GFR 60-89 ml/min baseline Cr is around 1.0 Diabetic foot ulcer s/p surgical intervention and eventual amputation Hyperlipidemia Coronary artery disease hx of stenting Diabetic gastroparesis Diabetes mellitus type 1 diagnosed age 15, history of peripheral neuropathy, gastroparesis and nephropathy Surgical History Hx of angioplasty H/O esophagogastroduodenoscopy (12/31/20) Bile reflux gastritis, grade B esophagitis Hx of cholecystectomy History of amputation of right forefoot Below-knee amputation of left lower extremity S/P percutaneous endoscopic gastrostomy (PEG) tube placement H/O exploratory laparotomy x 3 Previous section x 3 S/P coronary artery stent placement x 1 Family History Unknown Diabetes extensive, type II Other Congestive heart failure (CHF) Social History Smoking and tobacco/nicotine status: former use of tobacco/nicotine Quit status (tobacco/nicotine): has quit using Former quit date comment: 15 yrs ago Alcohol intake: former Former alcohol use details: 15 yrs ago Substance/Drug Use: current Substance/Drug use frequency: daily Household members: spouse Marital status: Sexually active: Yes (1, ) Female Reproductive History: Date of last menstrual period: 05/13/19 S pontaneous abortions: No Dietary Habits: Current diet type/program: regular Caffeine: Yes Caffeine intake frequency: coffee Exercise: Physical activity functional status: restricted by assistive devices (rolling walker) Safety: Seatbelt use: always Home Safety: Working smoke detector in home: Yes Personal Safety: Do you feel safe at home: Yes Victim of physical abuse: No Victim of emotional abuse: No Victim of sexual abuse: No Would you like help information on resources?: No Vitals/I&O/Wt Last Vital Signs Temp 98.2 F 05/17/24 07:59 Pulse 83 05/17/24 07:59 Resp 18 05/17/24 10:18 BP 158/83 05/17/24 07:59 Pulse Ox 98 05/17/24 07:59 O2 Del Method Room Air 05/17/24 07:59 05/16/24 05/17/24 05/17/24 22:59 06:59 14:59 Intake Total 350 / 350 Balance 350 / 350 Weight last 48 hrs Weight 138 lb 3.2 oz Weight 138 lb Weight 138 lb Physical Exam 2 Const: COMMON NORMALS: no acute distress, average body habitus, patient oriented x3 and alert GENERAL APPEARANCE: cooperative and comfortable O RIENTATION/CONSCIOUSNESS: Yes awake HENMT: COMMON NORMALS: normocephalic and atraumatic HEAD & SCALP: n ormocephalic and atraumatic Eye: GENERAL EYE: appearance normal, both eyes and all related structures Chest: COMMONS NORMALS: normal inspection of the chest Resp: COMMON NORMALS: normal respiratory effort EFFORT & INSPECTION: Yes able to speak in complete sentences and Yes symmetric chest movement Extremity: NARRATIVE EXTREMITY EXAM: Patient is status post bilateral BKA amputations. She presents today with a swollen anterior distal slightly red area which is quite painful to light touch LEFT LOWER EXTREMITY: Yes lower leg (Status post BKA amputation) Left lower leg: Yes inspection (Tender to palpation anterior) and Yes palpation (Fluctuant area anterior) Neuro: COMMON NORMALS: patient oriented x3 SENSORIUM/ORIENTATION: Yes alert Psych: COMMON NORMALS: mental status grossly normal APPEARANCE: Yes grossly normal ATTITUDE: Yes calm and Yes engaged ATTENTION/CONCENTRATION: Yes attention grossly intact Skin: COMMON NORMALS: no rashes or lesions noted GENERAL SKIN EXAM: no rashes or lesions noted Data 05/16/24 20:11 05/17/24 04:47 Micro: Microbiology 05/16/24 20:09 Blood Culture - Preliminary Blood SPECIMEN COLLECTED 05/16/24 20:11 Blood Culture - Preliminary Blood SPECIMEN COLLECTED MRI: Radiologist's impression: 1. No changes of osteomyelitis. 2. There is a subcutaneous collection at the stump measuring 7.6 x 5.3 x 5.1 cm. Subcutaneous collection at the stump, that might represent a resolving hematoma versus abscess formation. 3. Subcutaneous edema at the anterior aspect of the leg, that might represent bland edema versus cellulitis. Other CT: Radiologist's impression: 1. Large rim enhancing complex fluid collection in the amputation stump up to 7 x 9 x 7.2 x 5.9 cm, likely due to abscess within an adventitial bursa, rather than hematoma or other noninfected complex fluid collection. 2. Moderate infrapatellar anterior leg subcutaneous density likely due to cellulitis is also noted. A&P Assessment and plan (1) Cellulitis and abscess of left lower extremity: Patient presented with what appears to be either an abscess or hematoma on the anterior distal aspect of her left BKA amputation stump. She states this pain and swelling has only been present over the past day or so. She presented with leukocytosis. By history, the patient's amputations have occurred 1 at [facility] and 1 at [facility] in [place]. She is currently awaiting prosthesis for her right lower extremity. She has been crawling around in her home secondary to only having 1 prosthesis. She did present with history of suicide ideation, and she has expressed a desire for not living. Therefore, she is sitting with an observation continuously. Plans are to take her to the operating room today for irrigation, debridement of either hematoma or abscess. Cultures will be obtained. (2) Pain of amputation stump of left lower extremity: (3) Abscess of left leg: Coding Level of Care Code Acute Code for [facility] Diagnoses Cellulitis and abscess of left lower extremity L03.116; L02.416 Pain of amputation stump of left lower extremity T87.89; M79.605 Abscess of left leg L02.416
--- NOTE | 2024-05-17 11:31 | ANES.PREANE2 ---
Pre-Anesthetic Assessment Height/Weight: Height 4 ft 10 in Weight 138 lb 3.2 oz Temp Pulse Resp BP Pulse Ox O2 Del Method 98.2 F 83 18 158/83 98 Room Air 05/17/24 07:59 05/17/24 07:59 05/17/24 10:18 05/17/24 07:59 05/17/24 07:59 05/17/24 07:59 Preop Diagnosis: Abscess Operation Date: 05/17/24 12:10 Proposed Procedures p Incision & Drainage Lower Extremity(Left) - Shannon Jett MD Was Beta Rozina taken within 24 hours: N/A Was Clonidine taken within 24 hours: N/A Last Intake: 21:00 Social Tobacco and No alcohol Exam alert, oriented x 3, clear to auscultation bilaterally and regular rate & rhythm Airway Submandibular: within normal limits Cervical ROM: within normal limits Mallampati: Class II Dentition: other (Very poor dentition, multiple chipped/missing teeth) Anesthetic Plan ASA status: 4E Anesthesia: General Other: Patient presents with abscess of BKA, plans for washout today Leukocytosis of 19.6 noted at admission History including GERD and gastroparesis with intermittent vomiting. Patient states that she gets sick about once a day. N.p.o. since yesterday Poorly controlled type I diabetic PTSD with history of suicidal ideations. Sitter in the room CKD stage II Current smoker, patient vapes Poor dentition noted Labs 05/17 reviewed Sodium 132, potassium 3.4, BUN/CR 32/2.3 EKG showing sinus tachycardia Plan for GETA with RSI Medications/Allergies Home Medications Medication Instructions Recorded Confirmed Last Taken Type ropinirole 1 mg tablet 1 mg PO BEDTIME 30 days #30 tabs 09/25/21 05/17/24 05/16/24 Rx cyclobenzaprine 10 mg tablet 5 mg PO TID PRN Muscle Spasms 06/19/22 05/17/24 05/16/24 History ondansetron 4 mg disintegrating 4 mg PO Q8H PRN Nausea And Vomiting 06/19/22 05/17/24 Unknown History tablet amlodipine 5 mg tablet 5 mg PO ONCE 05/17/24 05/17/24 05/16/24 History metoclopramide HCl 10 mg tablet 10 mg PO QID 05/17/24 05/17/24 05/16/24 History paroxetine HCl 10 mg tablet 20 mg PO ONCE 05/17/24 05/17/24 05/16/24 History pregabalin 50 mg capsule 50 mg PO BID 05/17/24 05/17/24 05/16/24 History Allergies Allergy/AdvReac Type Severity Reaction Status Date / Time morphine Allergy ALGY-Difficulty Verified 06/19/22 11:02 Breathing sulfamethoxazole Allergy ADR-Vomitin Verified 08/14/22 22:19 [From Bactrim] g trimethoprim [From Bactrim] Allergy ADR-Vomitin Verified 08/14/22 22:19 g Current Medications Generic Name Dose Route Start Last Admin Trade Name Freq PRN Reason Stop Dose Admin Acetaminophen 650 mg 05/17/24 04:10 05/17/24 08:24 Acetaminophen 325 Mg Tablet PO 650 mg Q6H PRN Administration Mild/Mod Pain Or Temp >/= 101 Amlodipine Besylate 5 mg 05/17/24 09:00 05/17/24 08:24 Amlodipine 5 Mg Tablet PO 5 mg DAILY DAWSON Administration Enoxaparin Sodium 30 mg 05/17/24 09:00 05/17/24 08:24 Enoxaparin 30 Mg/0.3 Ml Syringe SUBCUT Not Given Q24H DAWSON Hydromorphone HCl 1 mg 05/17/24 09:53 05/17/24 10:18 Hydromorphone 1 Mg/Ml Inj 1 Ml IVP 1 mg Q4H PRN Administration SEVERE PAIN Cefepime HCl 1,000 mg/ Sodium 50 mls @ 100 mls/hr 05/17/24 06:00 05/17/24 06:40 Chloride IV Infused Q24H [facility] Infusion Protocol Metoclopramide HCl 10 mg 05/17/24 09:00 05/17/24 08:24 Metoclopramide 10 Mg Tablet PO 10 mg QID DAWSON Administration Pregabalin 50 mg 05/17/24 09:00 05/17/24 08:24 Pregabalin 50 Mg Capsule PO 50 mg BID DAWSON Administration PFSH Anesthesia Medical History (Updated 05/17/24 @ 07:16 by Pablito Perry DO) Urinary retention Septic prepatellar bursitis of left knee Chronic pain Hyperglycemia Anemia of chronic disease Insomnia GERD (gastroesophageal reflux disease) AELJANDRO (generalized anxiety disorder) C. 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 CKD (chronic kidney disease) stage 2, GFR 60-89 ml/min baseline Cr is around 1.0 Diabetic foot ulcer s/p surgical intervention and eventual amputation Hyperlipidemia Coronary artery disease hx of stenting Diabetic gastroparesis Diabetes mellitus type 1 diagnosed age 15, history of peripheral neuropathy, gastroparesis and nephropathy Surgical History Hx of angioplasty H/O esophagogastroduodenoscopy (12/31/20) Bile reflux gastritis, grade B esophagitis Hx of cholecystectomy History of amputation of right forefoot Below-knee amputation of left lower extremity S/P percutaneous endoscopic gastrostomy (PEG) tube placement H/O exploratory laparotomy x 3 Previous section x 3 S/P coronary artery stent placement x 1 Family History Unknown Diabetes extensive, type II Other Congestive heart failure (CHF) Social History Smoking and tobacco/nicotine status: former use of tobacco/nicotine Quit status (tobacco/nicotine): has quit using Former quit date comment: 15 yrs ago Alcohol intake: former Former alcohol use details: 15 yrs ago Substance/Drug Use: current Substance/Drug use frequency: daily Household members: spouse Marital status: Sexually active: Yes (1, ) Female Reproductive History Date of last menstrual period: 05/13/19 Spontaneous abortions: No Data Anesthesia 05/16/24 20:11 05/17/24 04:47 Short CBC 05/16/24 Range/Units 20:11 WBC 19.69 H (3.29-11.43) 10^3/uL Hgb 11.00 L (11.27-16.99) g/dL Hct 32.7 L (36-47) % MCV 91.1 (85-98) fl Plt Count 370 (157-399) 10^3/cmm Neut % (Auto) 86.4 % Neut # (Auto) 17.01 H (1.8-7.7) 10^3/uL BMP 05/16/24 05/17/24 20:11 04:47 Sodium 130 L 132 L Potassium 3.7 3.4 L Chloride 93 L 99 Carbon Dioxide 21 L 20 L BUN 30 H 32 H Creatinine 2.2 H 2.3 H Glucose 98 90 Calcium 9.2 8.9 Liver Function 05/16/24 05/17/24 Range/Units 20:11 04:47 Total Bilirubin 0.8 1.0 (0.15-1.2) mg/dL AST 31 60 H (0-32) U/L ALT 18 30 (0-33) U/L Alkaline Phosphatase 138 H 149 H (35-105) U/L Albumin 4.2 3.8 (3.5-5.2) g/dL Urine 05/17/24 Range/Units 03:41 Urine Color Yellow (Yellow) Urine Appearance Clear (CLEAR) Urine pH 5.5 (5-7) Ur Specific [place] 1.019 (1.005-1.030) Urine Protein 3+ A (Negative) Urine Glucose (UA) Negative (Normal) Urine Ketones Trace (Negative) Urine Nitrate Negative (Negative) Urine Bilirubin Negative (Negative) Ur Leukocyte Esterase Trace A (Negative) Urine RBC 0-2 (0-2) /hpf Urine WBC 6-10 (0-5) /hpf Coags 05/16/24 05/17/24 20:11 04:47 ESR 32 H C-Reactive Protein 135.5 H Microbiology 05/16/24 20:09 Blood Culture - Preliminary Blood SPECIMEN COLLECTED 05/16/24 20:11 Blood Culture - Preliminary Blood SPECIMEN COLLECTED Cardiac Studies: No Data to Display
[2024-05-17] MEDS: vancomycin 1,000 MG SDV 3000 MG (12:15)
[2024-05-17] MEDS: vancomycin 1,000 MG SDV 2000 MG IRRIGATION (12:30)
--- NOTE | 2024-05-17 13:10 | P.OP_ITS ---
Operative Report Date of procedure: May 17, 2024 Pre-op diagnosis: Abscess left below-knee amputation Post-op diagnosis: Abscess left below-knee amputation Post-op findings: Abscess left below-knee amputation stump Procedure done: Incision, drainage, and debridement left below-knee amputation stump including subcutaneous and fascial tissues Implants: None Specimens removed/disposition: Cultures Surgeon: Shannon Jett MD Application Performance Engineer: [facility] industrial ecology technician Anesthesia: General (Intubated, ASA 4) Estimated blood loss (mL): 5 Tourniquet time (min): 0 IV fluids (mL): 400 Urine output (mL): 0 (No [place]) Complications: None Findings: Abscess left amputation stump Condition: stable Disposition: PACU (Then to floor for postoperative antibiotics and rehabilitation) Brief History: Cherrie Solomon is a 44 year old female who has previously undergone bilateral below-knee amputations. Both of these amputations have been done in [place]. 1 at [facility] and the other at [facility]. The patient has been awaiting prostheses and in discussion with her, she notes that she essentially crawls at home as she only has 1 prosthesis. Her current work is being done in [place] regarding this. She presented to the emergency department complaining of pain and swelling in the anterior aspect of the left BKA stump. Previously, Dr. Salas took her for a prepatellar bursitis. Workup to date has included an MRI and CT scan of this lower extremity. The fluid collection is noted to be approximately 7 by 9 x 7 x 6 cm. She has a leukocytosis. She was admitted to the hospitalist team. MRI was obtained after her admission to the hospital. Her significant past medical history includes diabetes, chronic kidney disease, retinopathy, coronary artery disease with history of stents, gastroparesis, intermittent vomiting, hypertension, GERD, as well as self harming behavior and suicidal ideation. The patient was scheduled for operative intervention in the form of incision and drainage with debridement. She was consented preoperatively in her room. Questions were answered and consents were signed. Procedure: Patient was brought to the operating theater and after undergoing adequate general intubated, ASA for anesthesia, the patient's left lower extremity was prepped and draped in usual fashion utilizing DuraPrep. A tourniquet was placed high on the leg prior to prepping and draping. The tourniquet was not elevated during the case. Prior to commencement of the surgical procedure, a surgical pause was performed. At the time of the surgical pause, we identified the site and side of surgery. We also confirm the patient's identity. The patient had been placed on antibiotics prior to the surgical procedure, therefore, prophylactic antibiotics were not given additionally. Patient's leg was evaluated. The patient's previous distal stump incision was entered, and we encountered shelbi purulent fluid. The incision was then extended medially and laterally to allow access to the distal soft tissues. Further purulent fluid was expressed from the leg. We were able to use a combination of elevators and rongeur's to further debride the subcutaneous and fascial tissues around the area. They were somewhat edematous. When we encountered no more purulent fluid, the wound was irrigated with 6 L of normal saline with vancomycin. After this had been accomplished, the wound was packed with saline soaked Kerlix roll with vancomycin. Over this was placed fluffed fluffs, ABD, Kerlix roll, and an Miguel A wrap. Related Problem List Diagnoses (1) Abscess of left leg: (2) Cellulitis and abscess of left lower extremity: (3) Pain of amputation stump of left lower extremity:
--- NOTE | 2024-05-17 13:31 | PC.NURSE ---
This nurse took report for Rosalinda from [facility] Berman in PACU at 1330. Antonella notified to bring pt to room 153-1.
--- NOTE | 2024-05-17 13:35 | ANE.PACU2 ---
Inpatient post-anesthesia follow up: Airway intact: Yes Vital signs: Temperature 98 F Pulse Rate 76 Respiratory Rate 18 Blood Pressure 131/72 Pulse Oximetry 100 Oxygen Delivery Me thod Room Air Oxygen Flow Rate Fraction of Inspir ed Oxygen Hydration adequate: Yes Nausea and vomiting: No Pain level: 1 Mental status: Baseline
--- NOTE | 2024-05-17 15:15 | P.PN_ITS ---
Subjective 2 Subjective: Patient was seen this morning, she denies any fevers, chills, no cough, does complain of pain in her left below-knee amputation BKA stump, Vitals/I&O/Wt Last Vital Signs Temp 97.3 F L 05/17/24 14:03 Pulse 78 05/17/24 14:03 Resp 16 05/17/24 14:35 BP 124/72 05/17/24 14:03 Pulse Ox 99 05/17/24 14:03 O2 Del Method Room Air 05/17/24 14:03 05/17/24 05/17/24 05/17/24 06:59 14:59 22:59 Intake Total 350 / 350 0 / 0 Output Total 5 / 5 Balance 350 / 350 -5 / -5 Weight last 48 hrs Weight 62.686 kg Weight 62.596 kg Weight 62.596 kg Physical Exam 2 Const: COMMON NORMALS: no acute distress and patient oriented x3 Resp: COMMON NORMALS: normal respiratory effort, No retractions, No use of accessory muscles and clear to auscultation bilaterally AUSCULTATION: clear to auscultation bilaterally Cardio: COMMON NORMALS: regular rate, regular rhythm, S1 normal heart sound present and S2 normal heart sound present RATE: regular rate RHYTHM: r egular rhythm HEART SOUNDS: S1 normal heart sound present and S2 normal heart sound present GI: COMMON NORMALS: Normal to inspection, nondistended, normoactive bowel sounds present Extremity: COMMON NORMALS: no pedal edema NARRATIVE EXTREMITY EXAM: Left below-knee amputation stump site erythematous, tender Neuro: COMMON NORMALS: patient oriented x3 Psych: COMMON NORMALS: mental status grossly normal Data 05/16/24 20:11 05/17/24 04:47 Micro: Microbiology 05/16/24 20:09 Blood Culture - Preliminary Blood SPECIMEN COLLECTED 05/16/24 20:11 Blood Culture - Preliminary Blood SPECIMEN COLLECTED A&P Assessment and plan (1) Cellulitis and abscess of left lower extremity: CT/CT lower leg LT wo con* [id number] IMPRESSION: 1. Large rim enhancing complex fluid collection in the amputation stump up to 7 x 9 x 7.2 x 5.9 cm, likely due to abscess within an adventitial bursa, rather than hematoma or other noninfected complex fluid collection. 2. Moderate infrapatellar anterior leg subcutaneous density likely due to cellulitis is also noted. Concerns for left BKA stump cellulitis and abscess ? Plan ? MRI left stump ordered ? Follow blood cultures ? Continue vancomycin ? Continue cefepime ? Orthopedic service has been consulted ? Will continue to monitor closely (2) Acute kidney injury superimposed on CKD: ? Continue IV fluids (3) Suicidal ideation: - Currently denies any active suicidal ideation, but does have evidence of self harming behavior -Has a one-on-one sitter -Psychiatry has been consulted (4) Self-harming behavior: Plan Diabetes, with complications. Start insulin sliding scale CKD, Retinopathy, CAD status post tenting, Gastroparesis, intermittent vomiting, continue Reglan. Bilateral BKA, HTN, continue amlodipine. C. difficile colitis, currently no diarrhea. GERD, PTSD, Depression: Continue paroxetine Chronic pain syndrome Attestations 2 Medical Necessity Statement*: Patient requires hospitalization for left BKA stump cellulitis and abscess Diagnoses Cellulitis and abscess of left lower extremity L03.116; L02.416 Acute kidney injury superimposed on CKD N17.9; N18.9 Suicidal ideation R45.851 Self-harming behavior
[2024-05-17 15:59] LABS: Estmated Average Glucose 111; Hemoglobin A1C 5.5 % (4.0-6.0)
[2024-05-17 17:27] LABS: Glucose Point of Care 177 mg/dL (70-110)
[2024-05-17] MEDS: insulin lispro 100 unit/1 mL SUBCUT (17:33)
[2024-05-17] MEDS: oxyCODONE 5 mg IR Tab/Cap PO ×2 (17:36→21:38)
--- NOTE | 2024-05-17 18:55 | PC.NURSE ---
Medication Note: Pt had original order for Dilaudid 0.5 mg. This nurse pulled Dilaudid to administer 0.5 mg. Order dose changed before administration while doctor was in the room. Order was changed to 1 mg. This nurse used vial that was already pulled to administer the 1 mg instead of returning vial and pulling another vial with new order. Undocumented waste showing in Pyxis but no waste is necessary.
[2024-05-17 20:54] LABS: Glucose Point of Care 130 mg/dL (70-110)
[2024-05-17] MEDS: ropinirole 1 mg Tablet PO (21:38)
[2024-05-18] VITALS (11 sets, daily range): BP systolic 105–131; BP diastolic 56–78; PULSE 67–84; RESP 15–20; TEMP 36.6–36.8; O2SAT 97–100
[2024-05-18 02:23] LABS: Albumin Level 3.3 g/dL (3.5-5.2); Alkaline Phosphatase 179 U/L (35-105); Blood Urea Nitrogen 34 mg/dL (6-20); Calcium 8.7 mg/dL (8.5-10.5); Carbon Dioxide 19 mmol/L (22-29); Chloride 100 mmol/L (98-107); Globulin 3.4 g/dL (1.3-4.6); Glomerular Filtration Rate 26.8 mL/min (90-130); Glucose 145 mg/dL (65-115); Osmolality Calculated 278 mOsm/kg (285-295); Sodium 129 mmol/L (136-145); Total Bilirubin 0.4 mg/dL (0.15-1.2); Total Protein 6.7 g/dL (6.6-8.7); Vancomycin Trough 10.7 ug/mL (10-15)
[2024-05-18 02:28] LABS: Alanine Aminotransferase 36 U/L (0-33); Anion Gap 14.1 (5-19); Aspartate Amino Transferase 39 U/L (0-32); Potassium 4.1 mmol/L (3.5-5.1)
[2024-05-18] MEDS: vancomycin 750 MG in sodium chloride 0.9% 250 ML 250 MG IV (02:34)
--- NOTE | 2024-05-18 03:54 | PC.NURSE ---
1:1 Sitter: See paper chart for 15min behaviour checks.
[2024-05-18] MEDS: oxyCODONE 5 mg IR Tab/Cap PO ×5 (04:12→21:22)
[2024-05-18] MEDS: cyclobenzaprine 10 mg Tablet 5 MG PO ×3 (04:14→21:21)
[2024-05-18 04:36] LABS: Basophils % 0.1 %; Hematocrit 29.9 % (36-47); Lymphocytes % 5.6 %; Mean Corpuscular HGB Conc 32.1 g/dL (30-55); Mean Corpuscular Volume 96.5 fl (85-98); Mean Platelet Volume 9.1 fL (7.4-10.4); Monocytes # 0.9 10^3/uL (0.2-0.9); Monocytes % 5.2 %; Neutrophils # 14.93 10^3/uL (1.8-7.7); Neutrophils % 88.5 %; Nucleated Red Blood Cells % 0 %; Platelet Count 290 10^3/cmm (157-399); Red Cell Distribution Width 13.6 % (12.1-15.1); White Blood Count 16.87 10^3/uL (3.29-11.43)
[2024-05-18] MEDS: cefepime 1,000 MG in sodium chloride 0.9% (plus) 50 ML 100 MG IV (05:25)
[2024-05-18 06:26] LABS: Glucose Point of Care 130 mg/dL (70-110)
--- NOTE | 2024-05-18 07:39 | PHA.VACGOAL ---
Vancomycin Goal - Goal Vancomycin Goal:: 10-15 mg/L Vancomycin Indication:: SSTI - Therapy Current therapy:: Cefepime Day of therpy:: Day [2]of [] . Actual body weight (kg): 66.361 kg - Data Labs: WBC 16.87 10^3/uL (3.29-11.43) H 05/18/24 03:58 RBC 3.10 10^6/uL (3.85-5.65) L 05/18/24 03:58 Hgb 9.60 g/dL (11.27-16.99) L 05/18/24 03:58 Hct 29.9 % (36-47) L 05/18/24 03:58 MCV 96.5 fl (85-98) 05/18/24 03:58 MCH 31.0 pg (27-33) 05/18/24 03:58 MCHC 32.1 g/dL (30-55) 05/18/24 03:58 RDW 13.6 % (12.1-15.1) 05/18/24 03:58 Sodium 129 mmol/L (136-145) L 05/18/24 01:53 Potassium 4.1 mmol/L (3.5-5.1) 05/18/24 01:53 Chloride 100 mmol/L (98-107) 05/18/24 01:53 Carbon Dioxide 19 mmol/L (22-29) L 05/18/24 01:53 Anion Gap 14.1 (5-19) 05/18/24 01:53 BUN 34 mg/dL (6-20) H 05/18/24 01:53 Creatinine 2.0 mg/dL (0.5-0.9) H 05/18/24 01:53 GFR Calculation 26.8 mL/min (90-130) L 05/18/24 01:53 Treatment plan:: new consult Regimen:: Patient is a 44 year old female receiving vancomycin for cellulitis. Patient received 1250 mg loading dose in ED with a level coming back at 10.7 mg/L 24 hours later. Renal function stable, SCr~2.0 mg/dL will change current dose to 750 mg q36 hours. New expected trough of 15.6 mg/L. Pharmacy will continue to monitor daily.
[2024-05-18] MEDS: metoclopramide 10 mg Tablet PO ×4 (08:25→21:21)
[2024-05-18] MEDS: pregabalin 50 mg Capsule PO ×2 (08:25→17:18)
[2024-05-18] MEDS: amlodipine 5 mg Tablet PO (08:26)
[2024-05-18 11:14] LABS: Glucose Point of Care 99 mg/dL (70-110)
[2024-05-18 13:44] LABS: Sodium 132 mmol/L (136-145)
--- NOTE | 2024-05-18 15:05 | P.PN_ITS ---
Subjective 2 Subjective: Patient was seen this morning, she is alert and awake, following'S, she is status post surgical intervention, she tells me that she chronically has phantom limb pain in her left below-knee amputation, now it is even worse, no fevers overnight, no cough, is at bedside Vitals/I&O/Wt Last Vital Signs Temp 98.1 F 05/18/24 12:00 Pulse 67 05/18/24 12:00 Resp 18 05/18/24 13:23 BP 124/65 05/18/24 12:00 Pulse Ox 97 05/18/24 12:00 O2 Del Method Room Air 05/18/24 04:00 05/18/24 05/18/24 05/18/24 06:59 14:59 22:59 Intake Total 540 / 1020 360 / 360 Output Total 450 / 455 Balance 90 / 565 360 / 360 Weight last 48 hrs Weight 66.361 kg Weight 62.686 kg Weight 62.596 kg Weight 62.596 kg Physical Exam 2 Const: COMMON NORMALS: no acute distress and patient oriented x3 Resp: COMMON NORMALS: normal respiratory effort, No retractions, No use of accessory muscles and clear to auscultation bilaterally AUSCULTATION: clear to auscultation bilaterally Cardio: COMMON NORMALS: regular rate, regular rhythm, S1 normal heart sound present and S2 normal heart sound present RATE: regular rate RHYTHM: r egular rhythm HEART SOUNDS: S1 normal heart sound present and S2 normal heart sound present GI: COMMON NORMALS: Normal to inspection, nondistended, normoactive bowel sounds present and non-tender Extremity: COMMON NORMALS: no pedal edema NARRATIVE EXTREMITY EXAM: Left BKA stump site currently wrapped Neuro: COMMON NORMALS: patient oriented x3 Psych: COMMON NORMALS: mental status grossly normal Data 05/18/24 03:58 05/18/24 12:52 Micro: Microbiology 05/17/24 12:41 Anaerobic Culture - Preliminary Leg - #1 05/17/24 12:41 Gram Stain - Final Leg - #2 Wound Culture - Preliminary 05/16/24 20:09 Blood Culture - Preliminary Blood NEGATIVE TO DATE 05/16/24 20:11 Blood Culture - Preliminary Blood NEGATIVE TO DATE A&P Assessment and plan (1) Cellulitis and abscess of left lower extremity: CT/CT lower leg LT wo con* [id number] IMPRESSION: 1. Large rim enhancing complex fluid collection in the amputation stump up to 7 x 9 x 7.2 x 5.9 cm, likely due to abscess within an adventitial bursa, rather than hematoma or other noninfected complex fluid collection. 2. Moderate infrapatellar anterior leg subcutaneous density likely due to cellulitis is also noted. Concerns for left BKA stump cellulitis and abscess -Status post incision and drainage by orthopedic service ? Plan ? Follow blood cultures -Follow surgical cultures ? Continue vancomycin ? Continue cefepime ? Orthopedic service has been consulted ? Will continue to monitor closely (2) Acute kidney injury superimposed on CKD: ? Continue IV fluids (3) Suicidal ideation: - Currently denies any active suicidal ideation, but does have evidence of self harming behavior -Has a one-on-one sitter -Psychiatry has been consulted (4) Self-harming behavior: Plan Diabetes, with complications. Start insulin sliding scale CKD, Retinopathy, CAD status post tenting, Gastroparesis, intermittent vomiting, continue Reglan. Bilateral BKA, HTN, continue amlodipine. C. difficile colitis, currently no diarrhea. GERD, PTSD, Depression: Continue paroxetine Chronic pain syndrome Attestations 2 Medical Necessity Statement*: Patient requires hospitalization for left BKA stump, cellulitis with abscess Diagnoses Cellulitis and abscess of left lower extremity L03.116; L02.416 Acute kidney injury superimposed on CKD N17.9; N18.9 Suicidal ideation R45.851 Self-harming behavior
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
[2024-05-18 17:26] LABS: Glucose Point of Care 107 mg/dL (70-110)
--- NOTE | 2024-05-18 18:09 | P.PN_ITS ---
Subjective 2 Subjective: Patient was seen this morning, she is alert and awake, following'S, she is status post surgical intervention, she tells me that she chronically has phantom limb pain in her left below-knee amputation, now it is even worse, no fevers overnight, no cough, is at bedside Medications: Reviewed: Yes Vitals/I&O/Wt Last Vital Signs Temp 97.8 F 05/18/24 16:00 Pulse 84 05/18/24 16:00 Resp 18 05/18/24 17:18 BP 122/71 05/18/24 16:00 Pulse Ox 97 05/18/24 17:18 O2 Del Method Room Air 05/18/24 16:00 05/18/24 05/18/24 05/18/24 06:59 14:59 22:59 Intake Total 540 / 1020 600 / 600 240 / 840 Output Total 450 / 455 Balance 90 / 565 600 / 600 240 / 840 Weight last 48 hrs Weight 146 lb 4.8 oz Weight 138 lb 3.2 oz Weight 138 lb Weight 138 lb Physical Exam 2 Const: COMMON NORMALS: no acute distress, average body habitus, patient oriented x3 and alert GENERAL APPEARANCE: cooperative and comfortable O RIENTATION/CONSCIOUSNESS: Yes awake HENMT: COMMON NORMALS: normocephalic and atraumatic HEAD & SCALP: n ormocephalic and atraumatic Eye: GENERAL EYE: appearance normal, both eyes and all related structures Chest: COMMONS NORMALS: normal inspection of the chest Resp: COMMON NORMALS: normal respiratory effort EFFORT & INSPECTION: Yes able to speak in complete sentences and Yes symmetric chest movement Extremity: NARRATIVE EXTREMITY EXAM: Patient is status post bilateral BKA amputations. Dressing is dry and in place from surgical procedure to drain the abscess. Purulent fluid was obtained from this drainage. Neuro: COMMON NORMALS: patient oriented x3 SENSORIUM/ORIENTATION: Yes alert Psych: COMMON NORMALS: mental status grossly normal APPEARANCE: Yes grossly normal ATTITUDE: Yes calm and Yes engaged ATTENTION/CONCENTRATION: Yes attention grossly intact Skin: COMMON NORMALS: no rashes or lesions noted GENERAL SKIN EXAM: no rashes or lesions noted Data 05/18/24 03:58 05/18/24 12:52 Micro: Microbiology 05/17/24 12:41 Anaerobic Culture - Preliminary Leg - #1 05/17/24 12:41 Gram Stain - Final Leg - #2 Wound Culture - Preliminary 05/16/24 20:09 Blood Culture - Preliminary Blood NEGATIVE TO DATE 05/16/24 20:11 Blood Culture - Preliminary Blood NEGATIVE TO DATE A&P Assessment and plan (1) Abscess of left leg: Patient underwent incision and drainage yesterday. Purulent fluid, grossly purulent, was obtained. Wound was cultured. Currently, there is no growth. She has been on aggressive antibiotic therapy, however. The wound was packed with normal saline with vancomycin. Today, she appears more comfortable and is doing well. Her dressing remains dry. Plan will be for packing change tomorrow. (2) Cellulitis and abscess of left lower extremity: (3) Pain of amputation stump of left lower extremity: Attestations 2 Medical Necessity Statement*: Per medical service Coding Level of Care Code Acute Code for [facility] Diagnoses Abscess of left leg L02.416 Cellulitis and abscess of left lower extremity L03.116; L02.416 Pain of amputation stump of left lower extremity T87.89; M79.605
[2024-05-18 20:55] LABS: Sodium 129 mmol/L (136-145)
[2024-05-18 21:01] LABS: Glucose Point of Care 87 mg/dL (70-110)
[2024-05-18] MEDS: ropinirole 1 mg Tablet PO (21:22)
[2024-05-18] MEDS: diphenhydrAMINE 25 mg Capsule PO (23:33)
[2024-05-19] VITALS (7 sets, daily range): BP systolic 136–178; BP diastolic 69–94; PULSE 74–82; RESP 14–18; TEMP 36.4–36.9; O2SAT 92–100
[2024-05-19 05:10] LABS: Basophils % 0.2 %; Eosinophils # 0.1 10^3/uL (0.0-0.8); Eosinophils % 1.1 %; Hematocrit 26.6 % (36-47); Lymphocytes # 1.3 10^3/uL (0.8-4.8); Lymphocytes % 15.9 %; Mean Corpuscular HGB Conc 31.6 g/dL (30-55); Mean Corpuscular Hemoglobin 30.7 pg (27-33); Mean Corpuscular Volume 97.1 fl (85-98); Monocytes # 0.5 10^3/uL (0.2-0.9); Neutrophils # 6.13 10^3/uL (1.8-7.7); Neutrophils % 76.4 %; Nucleated Red Blood Cells % 0 %; Platelet Count 267 10^3/cmm (157-399); Red Blood Count 2.74 10^6/uL (3.85-5.65); Red Cell Distribution Width 13.3 % (12.1-15.1); White Blood Count 8.03 10^3/uL (3.29-11.43)
[2024-05-19 05:32] LABS: Alanine Aminotransferase 25 U/L (0-33); Albumin Level 2.9 g/dL (3.5-5.2); Alkaline Phosphatase 152 U/L (35-105); Aspartate Amino Transferase 17 U/L (0-32); Blood Urea Nitrogen 32 mg/dL (6-20); Calcium 8.2 mg/dL (8.5-10.5); Carbon Dioxide 19 mmol/L (22-29); Chloride 104 mmol/L (98-107); Creatinine Clr Calc Pharmacy 39.8186; Glomerular Filtration Rate 28.5 mL/min (90-130); Glucose 90 mg/dL (65-115); Osmolality Calculated 286 mOsm/kg (285-295); Sodium 135 mmol/L (136-145); Total Bilirubin 0.3 mg/dL (0.15-1.2); Total Protein 5.9 g/dL (6.6-8.7)
[2024-05-19 05:34] LABS: Anion Gap 15.6 (5-19); Potassium 3.6 mmol/L (3.5-5.1)
[2024-05-19] MEDS: cefepime 1,000 MG in sodium chloride 0.9% (plus) 50 ML 100 MG IV (06:11)
[2024-05-19 06:26] LABS: Glucose Point of Care 88 mg/dL (70-110)
[2024-05-19] MEDS: amlodipine 5 mg Tablet PO (08:08)
[2024-05-19] MEDS: oxyCODONE 5 mg IR Tab/Cap PO ×2 (08:08→12:10)
[2024-05-19] MEDS: metoclopramide 10 mg Tablet PO (08:08)
[2024-05-19] MEDS: pregabalin 50 mg Capsule PO (08:08)
[2024-05-19] MEDS: cyclobenzaprine 10 mg Tablet 5 MG PO (08:09)
--- NOTE | 2024-05-19 10:48 | PM.DCS ---
Discharge Providers Date of Admission: 05/17/24 01:47 Date of Discharge: May 19, 2024 Attending Provider at Admission: Mele Friedman Attending Provider at Discharge: Randy Chung MD Primary Care Provider: Monika Simpson MD Diagnoses at Discharge Discharge Diagnosis (1) Abscess of left leg: Status: Acute (2) Cellulitis and abscess of left lower extremity: Status: Acute (3) Pain of amputation stump of left lower extremity: Status: Acute Reason for Visit Reason for Visit: left leg pain Hospital Course Hospital Course This is a 44-year-old female with a past medical history of CKD CAD history of gastroparesis, bilateral BKA, hypertension, history of C. difficile, history of PTSD, history of self harming behaviors, history of diabetes mellitus, who presents to [facility] due to left stump BKA site swelling, erythema Patient was admitted to [facility] for Cellulitis and abscess of left lower extremity, with history of left BKA stump CT/CT lower leg LT wo con* [id number] IMPRESSION: 1. Large rim enhancing complex fluid collection in the amputation stump up to 7 x 9 x 7.2 x 5.9 cm, likely due to abscess within an adventitial bursa, rather than hematoma or other noninfected complex fluid collection. 2. Moderate infrapatellar anterior leg subcutaneous density likely due to cellulitis is also noted. Concerns for left BKA stump cellulitis and abscess -Status post incision and drainage by orthopedic service ? Tolerated procedure well, managed on IV antibiotics -So far cultures showing staph species -Will discharge on Zyvox, and Augmentin for 10 days -Advised to hydrate well, child for fevers, if any worsening erythema, swelling please go to emergency room -She should follow-up with her wound care ? Wound care instructions, daily dressing changes, packing changes -Follow-up with orthopedic service at [facility] within a week -Discharged with oxycodone for pain control, to be sparingly, do not drive or operate heavy machinery or drink while taking medication To concern for depression, self harming behavior, she was seen by psychiatry, she will continue Paxil 20 mg once daily, follow-up with [facility] as outpatient, patient was advised if she were to have any suicidal ideation or homicidal ideation to immediately call 04 29 Physical Exam Const: COMMON NORMALS: no acute distress and patient oriented x3 Resp: COMMON NORMALS: normal respiratory effort, No retractions, No use of accessory muscles and clear to auscultation bilaterally AUSCULTATION: clear to auscultation bilaterally Cardio: COMMON NORMALS: regular rate, regular rhythm, S1 normal heart sound present and S2 normal heart sound present RATE: regular rate RHYTHM: regular rhythm HEART SOUNDS: S1 normal heart sound present and S2 normal heart sound present GI: COMMON NORMALS: Normal to inspection, nondistended, normoactive bowel sounds present and non-tender Extremity: NARRATIVE EXTREMITY EXAM: Left BKA stump site, with a pressure bandage on top, Neuro: COMMON NORMALS: patient oriented x3 Psych: COMMON NORMALS: mental status grossly normal Discharge Data Studies Completed and Pending Completed Studies During Hospitalization Category Date Time Status CT lower leg LT wo con* [id number] Stat Cat Scan 05/16/24 20:49 Completed MR knee LT wo con* [id number] Routine MRI 05/17/24 06:59 Completed Pending at discharge Category Date Time Status Anaerobic Culture Routine Lab 05/17/24 12:41 Results Blood Culture Stat Lab 05/16/24 20:09 Results Complete Blood Count w/Auto AM LABS Lab 05/20/24 04:00 Ordered Comprehensive Metabolic Panel AM LABS Lab 05/20/24 04:00 Ordered Radiology Impressions Lower Extremity CT 05/16/24 20:49 IMPRESSION: 1. Large rim enhancing complex fluid collection in the amputation stump up to 7 x 9 x 7.2 x 5.9 cm, likely due to abscess within an adventitial bursa, rather than hematoma or other noninfected complex fluid collection. 2. Moderate infrapatellar anterior leg subcutaneous density likely due to cellulitis is also noted. Knee MRI 05/17/24 06:59 IMPRESSION: 1. No changes of osteomyelitis. 2. Subcutaneous collection at the stump, that might represent a resolving hematoma versus abscess formation. 3. Subcutaneous edema at the anterior aspect of the leg, that might represent bland edema versus cellulitis. Laboratory Results WBC 8.03 10^3/uL (3.29-11.43) 05/19/24 04:15 RBC 2.74 10^6/uL (3.85-5.65) L 05/19/24 04:15 Hgb 8.40 g/dL (11.27-16.99) L 05/19/24 04:15 Hct 26.6 % (36-47) L 05/19/24 04:15 MCV 97.1 fl (85-98) 05/19/24 04:15 MCH 30.7 pg (27-33) 05/19/24 04:15 MCHC 31.6 g/dL (30-55) 05/19/24 04:15 RDW 13.3 % (12.1-15.1) 05/19/24 04:15 Plt Count 267 10^3/cmm (157-399) 05/19/24 04:15 MPV 9.0 fL (7.4-10.4) 05/19/24 04:15 Neut % (Auto) 76.4 % 05/19/24 04:15 Lymph % (Auto) 15.9 % 05/19/24 04:15 [place] % (Auto) 6.0 % 05/19/24 04:15 Eos % (Auto) 1.1 % 05/19/24 04:15 Baso % (Auto) 0.2 % 05/19/24 04:15 Neut # (Auto) 6.13 10^3/uL (1.8-7.7) 05/19/24 04:15 Lymph # (Auto) 1.3 10^3/uL (0.8-4.8) 05/19/24 04:15 [place] # (Auto) 0.5 10^3/uL (0.2-0.9) 05/19/24 04:15 Eos # (Auto) 0.1 10^3/uL (0.0-0.8) 05/19/24 04:15 Baso # (Auto) 0.0 10^3/uL (0.0-0.1) 05/19/24 04:15 Nucleated RBC % (auto) 0 % 05/19/24 04:15 Nucleated RBCs # 0.0 /100WBC 05/19/24 04:15 ESR 32 mm/hr (0-15) H 05/17/24 04:47 Sodium 135 mmol/L (136-145) L 05/19/24 04:15 Potassium 3.6 mmol/L (3.5-5.1) 05/19/24 04:15 Chloride 104 mmol/L (98-107) 05/19/24 04:15 Carbon Dioxide 19 mmol/L (22-29) L 05/19/24 04:15 Anion Gap 15.6 (5-19) 05/19/24 04:15 BUN 32 mg/dL (6-20) H 05/19/24 04:15 Creatinine 1.9 mg/dL (0.5-0.9) H 05/19/24 04:15 GFR Calculation 28.5 mL/min (90-130) L 05/19/24 04:15 Glucose 90 mg/dL (65-115) 05/19/24 04:15 POC Glucose 88 mg/dL (70-110) 05/19/24 06:17 Estimat Average Glucose 111 05/17/24 04:47 Hemoglobin A1c 5.5 % (4.0-6.0) 05/17/24 04:47 Calculated Osmolality 286 mOsm/kg (285-295) 05/19/24 04:15 Lactic Acid 1.3 mmol/L (0.5-2.2) 05/16/24 20:11 Calcium 8.2 mg/dL (8.5-10.5) L 05/19/24 04:15 Total Bilirubin 0.3 mg/dL (0.15-1.2) 05/19/24 04:15 AST 17 U/L (0-32) 05/19/24 04:15 ALT 25 U/L (0-33) 05/19/24 04:15 Alkaline Phosphatase 152 U/L (35-105) H 05/19/24 04:15 C-Reactive Protein 135.5 mg/L (0.0-4.9) H 05/16/24 20:11 Total Protein 5.9 g/dL (6.6-8.7) L 05/19/24 04:15 Albumin 2.9 g/dL (3.5-5.2) L 05/19/24 04:15 Globulin 3.0 g/dL (1.3-4.6) 05/19/24 04:15 Procalcitonin 1.28 ng/mL (0-0.5) H 05/16/24 20:11 Urine Color Yellow (Yellow) 05/17/24 03:41 Urine Appearance Clear (CLEAR) 05/17/24 03:41 Urine pH 5.5 (5-7) 05/17/24 03:41 Ur Specific Helix 1.019 (1.005-1.030) 05/17/24 03:41 Urine Protein 3+ (Negative) A 05/17/24 03:41 Urine Glucose (UA) Negative (Normal) 05/17/24 03:41 Urine Ketones Trace (Negative) 05/17/24 03:41 Urine Blood 1+ (Negative) A 05/17/24 03:41 Urine Nitrate Negative (Negative) 05/17/24 03:41 Urine Bilirubin Negative (Negative) 05/17/24 03:41 Urine Urobilinogen 1.0 mg/dL (Negative) 05/17/24 03:41 Ur Leukocyte Esterase Trace (Negative) A 05/17/24 03:41 Urine RBC 0-2 /hpf (0-2) 05/17/24 03:41 Urine WBC 6-10 /hpf (0-5) 05/17/24 03:41 Ur Squamous Epith Cells 0-5 /hpf (0-5) 05/17/24 03:41 Amorphous Sediment Not Reportable 05/17/24 03:41 Urine Bacteria None seen /hpf (NONE) 05/17/24 03:41 Hyaline Casts 4.52 /lpf 05/17/24 03:41 Ur Random Sodium 32 mmol/L 05/17/24 03:41 Urine Creatinine 177 mg/dL (28-217) 05/17/24 03:41 Vancomycin Trough 10.7 ug/mL (10-15) 05/18/24 01:53 Urine Opiates Screen Positive ng/mL (Negative) H 05/17/24 03:41 Ur Barbiturates Screen Negative ng/mL (Negative) 05/17/24 03:41 Ur Phencyclidine Scrn Negative ng/mL (Negative) 05/17/24 03:41 Ur Amphetamines Screen Negative ng/mL (Negative) 05/17/24 03:41 U Benzodiazepines Scrn Negative ng/mL (Negative) 05/17/24 03:41 Urine Cocaine Screen Negative ng/mL (Negative) 05/17/24 03:41 U Marijuana (THC) Screen Positive ng/mL (Negative) H 05/17/24 03:41 Vitals Last Vital Signs Temp 97.7 F 05/19/24 04:00 Pulse 82 05/19/24 07:46 Resp 16 05/19/24 08:08 BP 160/86 05/19/24 07:46 Pulse Ox 92 05/19/24 07:46 O2 Del Method Room Air 05/19/24 07:46 Discharge Plan Discharge Patient Disposition: Home Condition: Stable Prescriptions: New amlodipine 5 mg Tablet 5 mg PO DAILY 30 Days Qty: 30 0RF linezolid [Zyvox] 600 mg tablet 600 mg PO Q12H 10 Days Qty: 20 0RF amoxicillin-pot clavulanate 875-125 mg tablet 1 tab PO BID 10 Days Qty: 20 0RF oxycodone 5 mg tablet 5 mg PO Q6H PRN (Reason: pain) 5 Days Qty: 20 0RF Continued ropinirole 1 mg tablet 1 mg PO BEDTIME 30 Days Qty: 30 1RF pregabalin 50 mg capsule 50 mg PO BID cyclobenzaprine 10 mg tablet 5 mg PO TID PRN (Reason: Muscle Spasms) ondansetron 4 mg tablet,disintegrating 4 mg PO Q8H PRN (Reason: Nausea And Vomiting) Changed paroxetine HCl 10 mg tablet 20 mg PO DAILY 30 Days Qty: 60 0RF metoclopramide HCl 10 mg tablet 10 mg PO QID PRN (Reason: Constipation) Qty: 1 0RF Discontinued amlodipine 5 mg tablet 5 mg PO ONCE Discharge Orders: Discharge Order (Routine); Ordered 05/19/24 Ordered By: Randy Chung Referrals: Monika Simpson MD [Primary Care Provider] - 05/22/24 11:20 am ([facility] [phone]) W[facility]ARE [facility], [Staff Physician] - 05/21/24 8:00 am (L stump - wet-to-dry daily dressings [phone] ) Discharge Diet: Cardiac Discharge Activity: Resume usual activity Patient Instructions: Acute Wound Care (DC), Opioid Safety, Post Anesthesia Care Activity Restrictions/Additional Instructions: - Patient was advised to hydrate well, -Please use pain medication sparingly, do not drive or operate heavy machinery or drink while taking medication -Please use antibiotics as prescribed -Please do wound care, dressing changes, packing changes once daily See primary care provider 1 week ? Follow-up with physician at [facility] orthopedics in 1 week Discharge Attestations Time Spent in Discharge Care*: greater than 30 min Status at Discharge: Cognitive status at discharge: cognitively intact, Behavioral status at discharge: cooperative, Quality Metrics Clinical Quality Measures [ No reported AMI, CVA or VTE this stay] Coding Level of Care Code 34381 Total time (in minutes) for Discharge: 45 Diagnoses Abscess of left leg L02.416 Cellulitis and abscess of left lower extremity L03.116; L02.416 Pain of amputation stump of left lower extremity T87.89; M79.605
[2024-05-19 11:02] LABS: Glucose Point of Care 99 mg/dL (70-110)
== END 2024-05-19 13:12 | disposition home or self-care (01) | DRG 565 ==
LOC: ER 23:04 → MEDSURG 05-17 01:55
PROVIDERS: Emergency Medicine; Specialist; Admitting Provider Internal Medicine; Emergency Provider Emergency Medicine; PCP Family Medicine; Visit Provider Family Medicine
PROC: 0J9M0ZZ Drainage of Left Upper Leg Subcutaneous Tissue and Fascia, Open Approach (ICD-10-PCS; principal; 2024-05-17 12:00)
DX: T87.89 Other complications of amputation stump (principal); L02.416 Cutaneous abscess of left lower limb; L03.116 Cellulitis of left lower limb; N17.9 Acute kidney failure, unspecified; R45.851 Suicidal ideations; E10.22 Type 1 diabetes mellitus with diabetic chronic kidney disease; N18.2 Chronic kidney disease, stage 2 (mild); E10.42 Type 1 diabetes mellitus with diabetic polyneuropathy; E10.43 Type 1 diabetes mellitus with diabetic autonomic (poly)neuropathy; K31.84 Gastroparesis; E10.319 Type 1 diabetes mellitus with unspecified diabetic retinopathy without macular edema; D63.1 Anemia in chronic kidney disease; K21.9 Gastro-esophageal reflux disease without esophagitis; F43.10 Post-traumatic stress disorder, unspecified; G54.6 Phantom limb syndrome with pain; F32.A Depression, unspecified; I10 Essential (primary) hypertension; R45.88 Nonsuicidal self-harm; H54.8 Legal blindness, as defined in USA; F41.9 Anxiety disorder, unspecified; Z89.512 Acquired absence of left leg below knee; Z89.511 Acquired absence of right leg below knee; Z86.14 Personal history of Methicillin resistant Staphylococcus aureus infection; Z87.440 Personal history of urinary (tract) infections; Z87.891 Personal history of nicotine dependence
CPT/HCPCS: 36415; 36416; 73700; 73721; 80053; 80202; 80306; 81001; 82570; 82962; 83036; 83605; 84145; 84295; 84300; 85025; 85651; 86140; 87040; 87070; 87075; 87077; 87186; 87205; 96365; 96367; 96372; 96375; 96376; 97161; 97166; 99285; J0330; J0692; J1100; J1170; J1650; J1815; J2405; J2543; J2704; J3010; J3370; J7050; J8597

== ENCOUNTER → 2024-05-21 07:46 | Outpatient (BNVA) | payer MEDICAID, SELFPAY | PROVIDERS: PCP Family Medicine; Visit Provider Thoracic Surgery (Cardiothoracic Vascular Surgery) | DX: I96 Gangrene, not elsewhere classified (principal); T87.81 Dehiscence of amputation stump; Y83.8 Other surgical procedures as the cause of abnormal reaction of the patient, or of later complication, without mention of misadventure at the time of the procedure; Z89.512 Acquired absence of left leg below knee | CPT/HCPCS: 11042; 99213 ==

== ENCOUNTER 2024-05-23 22:14 | Inpatient (IN) | payer MEDICAID, SELFPAY ==
[2024-05-23] MEDS: ziprasidone 20 mg/mL SDV IM (22:20)
[2024-05-23] MEDS: ketamine 100 mg/mL Inj 5 mL 300 MG IM (22:20)
[2024-05-23 22:29] VITALS: PULSE 97; O2SAT 100
--- NOTE | 2024-05-23 22:29 | CTR_ITS ---
PROCEDURE INFORMATION: Exam: CT Head Without Contrast Exam date and time: 05/23/2024 11:12 PM Age: 44 years old Clinical indication: Altered mental status/memory loss; Patient HX: EMS arrival for AMS. Best scan obtained as patient extremely combative even after chemical sedation. TECHNIQUE: Imaging protocol: Computed tomography of the head without contrast. Radiation optimization: All CT scans at this facility use at least one of these dose optimization techniques: automated exposure control; mA and/or kV adjustment per patient size (includes targeted exams where dose is matched to clinical indication); or iterative reconstruction. COMPARISON: CT head wo con* [id number] 12/17/2023 12:22 AM RADIATION DOSE METRICS: Total DLP (mGy-cm): 908.88 FINDINGS: Limitations: Beam hardening artifact over the superior aspect of the head from overlying hands/jewelry. Brain: Normal. No hemorrhage. Unremarkable white matter. No mass effect. Cerebral ventricles: No ventriculomegaly. Paranasal sinuses: Visualized sinuses are unremarkable. No fluid levels. Mastoid air cells: Visualized mastoid air cells are well aerated. Bones: Unremarkable. No acute fracture. Soft tissues: Unremarkable. Vasculature: Vascular calcifications along the carotid siphons. CT/CT head wo con* [id number] IMPRESSION: No acute intracranial abnormality.
--- NOTE | 2024-05-23 22:29 | XRR_ITS ---
PROCEDURE INFORMATION: Exam: XR Chest Exam date and time: 05/23/2024 10:36 PM Age: 44 years old Clinical indication: Prior surgery; Surgery date: 6+ months; Surgery type: Coronary stent. Gb; Patient HX: EMS arrival for AMS. TECHNIQUE: Imaging protocol: Radiologic exam of the chest. Views: 1 view. COMPARISON: CR XR chest 1V portable [id number] 12/17/2023 12:32 AM FINDINGS: Lungs: Unremarkable. No consolidation. Pleural spaces: Unremarkable. No pleural effusion. No pneumothorax. Heart/Mediastinum: Unremarkable. No cardiomegaly. Coronary artery stenting noted. Bones/joints: Unremarkable. XR/XR chest 1V portable [id number] IMPRESSION: No acute findings.
[2024-05-23 22:37] LABS: ABG PCO2 36.3 mmHg (35-45); ABG PH Result 7.42 (7.35-7.45); Arterial Blood Gas Hematocrit 28.6 % (37-47); Base Excess ABG -0.9 mmol/L (-2.0-2.0); Blood Gas Sample Site Brachial, right; Blood Gas Sample Type Arterial; HCO3 ABG 23.4 mmol/L (22-26); Oxygen Device NC
[2024-05-23] MEDS: LORazepam 2 mg/mL INJ 1 mL IVP (23:00)
[2024-05-23 23:01] LABS: Basophils % 0.3 %; Eosinophils % 0.4 %; Hematocrit 27.5 % (36-47); Lymphocytes # 1.2 10^3/uL (0.8-4.8); Lymphocytes % 10.2 %; Mean Corpuscular HGB Conc 32.4 g/dL (30-55); Mean Corpuscular Hemoglobin 30.4 pg (27-33); Mean Corpuscular Volume 93.9 fl (85-98); Mean Platelet Volume 8.9 fL (7.4-10.4); Monocytes # 0.9 10^3/uL (0.2-0.9); Monocytes % 7.6 %; Neutrophils # 9.09 10^3/uL (1.8-7.7); Neutrophils % 80.7 %; Nucleated Red Blood Cells % 0 %; Platelet Count 354 10^3/cmm (157-399); Red Blood Count 2.93 10^6/uL (3.85-5.65); Red Cell Distribution Width 13.5 % (12.1-15.1); White Blood Count 11.26 10^3/uL (3.29-11.43)
[2024-05-23 23:27] LABS: Alanine Aminotransferase 25 U/L (0-33); Albumin Level 3.7 g/dL (3.5-5.2); Alkaline Phosphatase 217 U/L (35-105); Anion Gap 16.9 (5-19); Aspartate Amino Transferase 29 U/L (0-32); Blood Urea Nitrogen 18 mg/dL (6-20); Calcium 8.9 mg/dL (8.5-10.5); Carbon Dioxide 22 mmol/L (22-29); Chloride 105 mmol/L (98-107); Globulin 3.6 g/dL (1.3-4.6); Glomerular Filtration Rate 40.5 mL/min (90-130); Glucose 147 mg/dL (65-115); Osmolality Calculated 297 mOsm/kg (285-295); Sodium 141 mmol/L (136-145); Thyroid Stimulating Hormone 0.19 uIU/mL (0.27-4.20); Total Bilirubin 0.4 mg/dL (0.15-1.2); Total Protein 7.3 g/dL (6.6-8.7)
[2024-05-23] MEDS: haloperidol inj 5 mg/mL INJ 1 mL IVP (23:36)
[2024-05-23] MEDS: water for injection-sterile 10 ML (23:39)
[2024-05-23 23:42] LABS: Acetaminophen < 5.0 ug/mL (10-30); Salicylate < 0.3 mg/dL (3-10)
[2024-05-23 23:43] LABS: Alcohol Level < 10 mg/dL (0-10); Potassium 2.9 mmol/L (3.5-5.1)
[2024-05-23 23:49] VITALS: BP 117/54; PULSE 74; O2SAT 95
--- NOTE | 2024-05-23 23:53 | ED.C_ITS ---
HPI - Psych 2 General: Chief Complaint: Psychiatric Symptoms Stated Complaint: Psych eval Time Seen by Provider: 05/23/24 22:16 History of Present Illness: 44-year-old female [facility] She presents by EMS ambulance. They were called for self-harm behavior and suicidal ideations. She presents combative, not answering questions, thrashing around in bed. She is currently having to be held down and striking at staff. No distinct history is able to be obtained from this patient. Related Data Home Medications Medication Instructions Recorded Confirmed cyclobenzaprine 10 mg tablet 5 mg PO TID PRN Muscle Spasms 06/19/22 05/17/24 ondansetron 4 mg disintegrating 4 mg PO Q8H PRN Nausea And Vomiting 06/19/22 05/17/24 tablet pregabalin 50 mg capsule 50 mg PO BID 05/17/24 05/17/24 Previous Rx's Medication Instructions Recorded ropinirole 1 mg tablet 1 mg PO BEDTIME 30 days #30 tabs 09/25/21 amlodipine 5 mg tablet 5 mg PO DAILY 30 days #30 tabs 05/19/24 amoxicillin 875 mg-potassium 1 tab PO BID 10 days #20 tabs 05/19/24 clavulanate 125 mg tablet linezolid 600 mg tablet (Zyvox) 600 mg PO Q12H 10 days #20 tabs 05/19/24 metoclopramide HCl 10 mg tablet 10 mg PO QID PRN Constipation #1 05/19/24 tab oxycodone 5 mg tablet 5 mg PO Q6H PRN pain 5 days #20 05/19/24 tabs paroxetine HCl 10 mg tablet 20 mg (2 x 10 mg) PO DAILY 30 days 05/19/24 #60 tabs Allergies Allergy/AdvReac Type Severity Reaction Status Date / Time morphine Allergy ALGY-Difficulty Verified 06/19/22 11:02 Breathing sulfamethoxazole Allergy ADR-Vomitin Verified 08/14/22 22:19 [From Bactrim] g trimethoprim [From Bactrim] Allergy ADR-Vomitin Verified 08/14/22 22:19 g PFSH ED 2 PFSH: Medical History Urinary retention Septic prepatellar bursitis of left knee Chronic pain Hyperglycemia Anemia of chronic disease Insomnia GERD (gastroesophageal reflux disease) ALEJANDRO (generalized anxiety disorder) C. 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 CKD (chronic kidney disease) stage 2, GFR 60-89 ml/min baseline Cr is around 1.0 Diabetic foot ulcer s/p surgical intervention and eventual amputation Hyperlipidemia Coronary artery disease hx of stenting Diabetic gastroparesis Diabetes mellitus type 1 diagnosed age 15, history of peripheral neuropathy, gastroparesis and nephropathy Surgical History Hx of angioplasty H/O esophagogastroduodenoscopy (12/31/20) Bile reflux gastritis, grade B esophagitis Hx of cholecystectomy History of amputation of right forefoot Below-knee amputation of left lower extremity S/P percutaneous endoscopic gastrostomy (PEG) tube placement H/O exploratory laparotomy x 3 Previous section x 3 S/P coronary artery stent placement x 1 Family History Unknown Diabetes extensive, type II Other Congestive heart failure (CHF) Social History Smoking and tobacco/nicotine status: former use of tobacco/nicotine Quit status (tobacco/nicotine): has quit using Former quit date comment: 15 yrs ago Alcohol intake: former Former alcohol use details: 15 yrs ago Substance/Drug Use: current Substance/Drug use frequency: daily Household members: spouse Marital status: Current occupation: disabled Sexually active: Yes (1, ) Female Reproductive History: Spontaneous abortions: No Physical Exam 2 Const: EXAM LIMITATIONS: behavioral limitations GENERAL APPEARANCE: c ombative, disheveled and ill appearing; not cooperative ORIENTATION/CONSCIOUSNESS: Yes awake, Yes oriented to person and Yes oriented to place; not oriented to time HENMT: COMMON NORMALS: normocephalic HEAD & SCALP: normocephalic NOSE: N o nasal discharge present Eye: COMMON NORMALS: Equal, round and reactive pupils present and EOMs intact bilaterally PUPIL: Yes Equal, round and reactive pupils present Neck/C-Spine: GENERAL: Yes trachea midline Chest: CHEST: Yes Symmetrical chest wall rise Resp: COMMON NORMALS: normal respiratory effort and clear to auscultation bilaterally AUSCULTATION: clear to auscultation bilaterally Cardio: COMMON NORMALS: regular rate and regular rhythm RATE: regular rate RHYTHM: regular rhythm Extremity: NARRATIVE EXTREMITY EXAM: Left BKA stump, open wound. No dressing. No cellulitic change or drainage. Neuro: SENSORIUM/ORIENTATION: Yes oriented to person, Yes oriented to place and No oriented to time Face to Face: Restrn/Seclusion Events leading up to initiation: Demonstrating self-destructive behavior (cutting, hitting estrada etc.) and Combative/Striking out at staff or others Evaluation of patient's immediate situation: Signs of physical distress and Signs of psychological distress Patient reaction since intervention applied: De-escalation/no displays of violent/destructive behavior Recent labs reviewed: Yes Review of medications: Yes Patient's current medical/behavioral condition: No new concerns since last ROS Need for restraint or seclusion is: No longer present Attending notified: Attending completed assessment Course 2 Vital Signs: Vital signs: Vital Signs Pulse Rate 95 05/24/24 03:23 Respiratory Rate 16 05/24/24 03:23 Blood Pressure 150/86 05/24/24 02:49 Pulse Oximetry 100 05/24/24 03:12 Oxygen Delivery Me thod Room Air 05/24/24 02:49 Oxygen Flow Rate 2 05/23/24 23:49 MDM - Psych Medical Decision Making This is a 44-year-old bilateral amputee. There has been reported self-harm behavior and combativeness prior to arrival. She arrives this way as well. She is attempting to hit staff members, banging her head on the gurney. She was given ketamine on arrival for this as well as Geodon. She became apneic for around 30 seconds, for which a [id number] was used. This was self resolved and short-lived. She also had to be given Haldol and Ativan through her IV later. Her potassium was 2.9. Other laboratory appears at her baseline. Chest x-ray and head CT are nonacute. With the amount of sedation she has had received, she will have to go to the ICU with a sitter. Patient is now waking up a bit. She has been calm since awakening. Restraints are being removed. Precedex is being hung should it be needed. Spoke with hospitalist. She will go to the ICU. Lab Data 05/23/24 22:50 05/23/24 22:50 Radiology Impressions Chest X-Ray 05/23/24 22:29 IMPRESSION: No acute findings. Head CT 05/23/24 22:29 IMPRESSION: No acute intracranial abnormality. Laboratory Results WBC 11.26 10^3/uL (3.29-11.43) 05/23/24 22:50 RBC 2.93 10^6/uL (3.85-5.65) L 05/23/24 22:50 Hgb 8.90 g/dL (11.27-16.99) L 05/23/24 22:50 Hct 27.5 % (36-47) L 05/23/24 22:50 MCV 93.9 fl (85-98) 05/23/24 22:50 MCH 30.4 pg (27-33) 05/23/24 22:50 MCHC 32.4 g/dL (30-55) 05/23/24 22:50 RDW 13.5 % (12.1-15.1) 05/23/24 22:50 Plt Count 354 10^3/cmm (157-399) 05/23/24 22:50 MPV 8.9 fL (7.4-10.4) 05/23/24 22:50 Neut % (Auto) 80.7 % 05/23/24 22:50 Lymph % (Auto) 10.2 % 05/23/24 22:50 [place] % (Auto) 7.6 % 05/23/24 22:50 Eos % (Auto) 0.4 % 05/23/24 22:50 Baso % (Auto) 0.3 % 05/23/24 22:50 Neut # (Auto) 9.09 10^3/uL (1.8-7.7) H 05/23/24 22:50 Lymph # (Auto) 1.2 10^3/uL (0.8-4.8) 05/23/24 22:50 [place] # (Auto) 0.9 10^3/uL (0.2-0.9) 05/23/24 22:50 Eos # (Auto) 0.0 10^3/uL (0.0-0.8) 05/23/24 22:50 Baso # (Auto) 0.0 10^3/uL (0.0-0.1) 05/23/24 22:50 Nucleated RBC % (auto) 0 % 05/23/24 22:50 Nucleated RBCs # 0.0 /100WBC 05/23/24 22:50 Specimen Type Arterial 05/23/24 22:25 Sample Site Brachial, right 05/23/24 22:25 ABG pH 7.42 (7.35-7.45) 05/23/24 22:25 ABG pCO2 36.3 mmHg (35-45) 05/23/24 22: ABG pO2 263.0 mmHg (80.0-100.0) H 05/23/24 22:25 ABG HCO3 23.4 mmol/L (22-26) 05/23/24 22:25 ABG Base Excess -0.9 mmol/L (-2.0-2.0) 05/23/24 22:25 Steve Test N/a 05/23/24 22:25 Hematocrit 28.6 % (37-47) L 05/23/24 22:25 O2 Delivery Device Nc 05/23/24 22:25 O2 Liters/Min 6.0 % 05/23/24 22:25 Core Java Engineer ID [email or web address] 05/23/24 22:25 Sodium 141 mmol/L (136-145) 05/23/24 22:50 Potassium 2.9 mmol/L (3.5-5.1) L 05/23/24 22:50 Chloride 105 mmol/L (98-107) 05/23/24 22:50 Carbon Dioxide 22 mmol/L (22-29) 05/23/24 22:50 Anion Gap 16.9 (5-19) 05/23/24 22:50 BUN 18 mg/dL (6-20) 05/23/24 22:50 Creatinine 1.4 mg/dL (0.5-0.9) H 05/23/24 22:50 GFR Calculation 40.5 mL/min (90-130) L 05/23/24 22:50 Glucose 147 mg/dL (65-115) H 05/23/24 22:50 Calculated Osmolality 297 mOsm/kg (285-295) H 05/23/24 22:50 Calcium 8.9 mg/dL (8.5-10.5) 05/23/24 22:50 Total Bilirubin 0.4 mg/dL (0.15-1.2) 05/23/24 22:50 AST 29 U/L (0-32) 05/23/24 22:50 ALT 25 U/L (0-33) 05/23/24 22:50 Alkaline Phosphatase 217 U/L (35-105) H 05/23/24 22:50 Total Protein 7.3 g/dL (6.6-8.7) 05/23/24 22:50 Albumin 3.7 g/dL (3.5-5.2) 05/23/24 22:50 Globulin 3.6 g/dL (1.3-4.6) 05/23/24 22:50 TSH 0.19 uIU/mL (0.27-4.20) L 05/23/24 22:50 Salicylates < 0.3 mg/dL (3-10) L 05/23/24 22:50 Acetaminophen < 5.0 ug/mL (10-30) L 05/23/24 22:50 Ethyl Alcohol < 10 mg/dL (0-10) 05/23/24 22:50 All radiology interpretation(s) finalized by discharge Critical Care Time 2 Critical Care Time: Critical Care Time: Yes Total Critical Care Time: 40 Attestation: This case had a high probability of a clinically significant, sudden, or life threatening deterioration of this patient's condition which required my full and direct attention, intervention and personal management. Time is independent of any procedures performed Discharge Plan Discharge Patient Disposition: Admitted As Inpatient Clinical Impression: Suicidal ideation Depression Qualifiers: Depression Type: unspecified Qualified Code(s): F32.9 - Major depressive disorder, single episode, unspecified Condition: Fair Coding Level of Care Code ED Direct Selling Counselor for Kim Mitchell
[2024-05-24] VITALS (27 sets, daily range): BP systolic 126–221; BP diastolic 74–125; PULSE 76–119; RESP 15–32; TEMP 36.7–36.8; O2SAT 96–100
[2024-05-24] MEDS: lidocaine 1% 5 ML in potassium chloride premix 100 ML 26.25 ML IV (00:57)
[2024-05-24] MEDS: sodium chloride 0.9% 1,000 ML 999 ML IV (00:58)
--- NOTE | 2024-05-24 01:29 | PC.NURSE ---
Patient was placed in soft restraints at [address] Perry at bedside. Macy RN (primary care nurse at time), Teddy Curiel RN (charge nurse), security Smith all present at that time. This nurse assumed care of patient when patient was transferred from room 6 to room 11 around midnight.
--- NOTE | 2024-05-24 02:50 | PC.NURSE ---
Patient requested Dr Perry to bedside and asked if restraints could come off. Dr Perry told patient as long as she wasn't violent and was calm with staff, patient could be removed from restraints. Patient was then removed from restraints at 0245. PSA remains at bedside.
--- NOTE | 2024-05-24 03:23 | PC.NURSE ---
96 Hour Hold Patient informed of being placed under a 96 hour hold. When asked if she understood what this meant, patient stated yeah. 96 Hour hold rights read to patient at this time with witness ISRAEL Cavazos. Patient verbalized understanding and did not verbalize any questions.
--- NOTE | 2024-05-24 03:28 | PC.NURSE ---
Report was called to Betzaida WOOD in ICU. All questions and concerns were addressed at time of report.
--- NOTE | 2024-05-24 03:50 | PC.NURSE ---
Patient is restless,rolling about in bed. IV in right ACF is infiltrated. IV potassium discontinued. Patient is alert and oriented x 3.
--- NOTE | 2024-05-24 04:21 | P.HP_ITS ---
Providers/Chief Complaint 2 Admitting Physician: Sonali Emery MD Primary Care Provider: Monika Simpson MD Chief Complaint: Psych eval History of Present Illness Cherrie Solomon is a 44 year old female with a past medical history of CKD CAD history of gastroparesis, bilateral BKA, hypertension, history of C. difficile, history of PTSD, history of self harming behaviors, history of diabetes mellitus, who was recently admitted here until May 19 due to complaints of left BKA cellulitis. Imaging of the leg had shown a rim-enhancing complex fluid collection in the amputation stump up to 7 by 9 x 7 x 5 cm. Likely thought to be an abscess. She underwent I&D with orthopedics on May 17, 2024. Culture showed MSSA. Patient was discharged with a prescription for Augmentin and linezolid and advised to follow-up with her usual Ortho potation's at [facility]. She followed up with wound care on May 21, 2024, curette debridement was found extending 4 cm in depth. There was devitalized adipose tissue noted. Wound VAC is being planned to assist with healing. She returned to the emergency room today via EMS due to self-harm behavior and suicidal ideation. Patient was combative, aggressive, attempted to strike staff and banged her head against several surfaces. She was given ketamine, Geodon, and Haldol. She was briefly apneic for around 30 seconds for which [id number] was used. This is resolved. She is currently saturating 100% on room air, breathing spontaneously. She is still sedated but able to answer basic questions such as her name age etc. Review of Systems 2 General: Reports: ROS unobtainable due to medical condition and ROS unobtainable due to mental status Medications/Allergies Home Medications Medication Instructions Recorded Confirmed Last Taken Type ropinirole 1 mg tablet 1 mg PO BEDTIME 30 days #30 tabs 09/25/21 05/17/24 05/16/24 Rx cyclobenzaprine 10 mg tablet 5 mg PO TID PRN Muscle Spasms 06/19/22 05/17/24 05/16/24 History ondansetron 4 mg disintegrating 4 mg PO Q8H PRN Nausea And Vomiting 06/19/22 05/17/24 Unknown History tablet pregabalin 50 mg capsule 50 mg PO BID 05/17/24 05/17/24 05/16/24 History amlodipine 5 mg tablet 5 mg PO DAILY 30 days #30 tabs 05/19/24 Unknown Rx amoxicillin 875 mg-potassium 1 tab PO BID 10 days #20 tabs 05/19/24 Unknown Rx clavulanate 125 mg tablet linezolid 600 mg tablet (Zyvox) 600 mg PO Q12H 10 days #20 tabs 05/19/24 Unknown Rx metoclopramide HCl 10 mg tablet 10 mg PO QID PRN Constipation #1 05/19/24 05/17/24 05/16/24 Rx tab oxycodone 5 mg tablet 5 mg PO Q6H PRN pain 5 days #20 05/19/24 Unknown Rx tabs paroxetine HCl 10 mg tablet 20 mg (2 x 10 mg) PO DAILY 30 days 05/19/24 Unknown Rx #60 tabs Allergies Allergy/AdvReac Type Severity Reaction Status Date / Time morphine Allergy ALGY-Difficulty Verified 06/19/22 11:02 Breathing sulfamethoxazole Allergy ADR-Vomitin Verified 08/14/22 22:19 [From Bactrim] g trimethoprim [From Bactrim] Allergy ADR-Vomitin Verified 08/14/22 22:19 g PFSH Acute 2 PFSH: Medical History Urinary retention Septic prepatellar bursitis of left knee Chronic pain Hyperglycemia Anemia of chronic disease Insomnia GERD (gastroesophageal reflux disease) ALEJANDRO (generalized anxiety disorder) C. 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 CKD (chronic kidney disease) stage 2, GFR 60-89 ml/min baseline Cr is around 1.0 Diabetic foot ulcer s/p surgical intervention and eventual amputation Hyperlipidemia Coronary artery disease hx of stenting Diabetic gastroparesis Diabetes mellitus type 1 diagnosed age 15, history of peripheral neuropathy, gastroparesis and nephropathy Surgical History Hx of angioplasty H/O esophagogastroduodenoscopy (12/31/20) Bile reflux gastritis, grade B esophagitis Hx of cholecystectomy History of amputation of right forefoot Below-knee amputation of left lower extremity S/P percutaneous endoscopic gastrostomy (PEG) tube placement H/O exploratory laparotomy x 3 Previous section x 3 S/P coronary artery stent placement x 1 Family History Unknown Diabetes extensive, type II Other Congestive heart failure (CHF) Social History Smoking and tobacco/nicotine status: former use of tobacco/nicotine Quit status (tobacco/nicotine): has quit using Former quit date comment: 15 yrs ago Alcohol intake: former Former alcohol use details: 15 yrs ago Substance/Drug Use: current Substance/Drug use frequency: daily Household members: spouse Marital status: Current occupation: disabled Sexually active: Yes (1, ) Female Reproductive History: Spontaneous abortions: No Vitals/I&O/Wt Last Vital Signs Pulse 95 05/24/24 03:23 Resp 16 05/24/24 03:23 BP 150/86 05/24/24 02:49 Pulse Ox 100 05/24/24 03:12 O2 Del Method Room Air 05/24/24 02:49 O2 Flow Rate 2 05/23/24 23:49 05/23/24 05/23/24 05/24/24 14:59 22:59 06:59 Intake Total 1000 / 1000 Balance 1000 / 1000 Physical Exam 2 Narrative: General: lethargic, asleep curently, wakes up to vomit and answers intermittent questions HEENT: PERRLA, pupils bilaterally equal and reactive, pallors not present Chest: Normal vesicular breath sounds, no added sounds, equal good air entry bilaterally CVS: S1-S2 regular, no murmurs, no tachycardia, no gallops, no rubs Abdomen: Soft, nontender, no organomegaly, bowel sounds present Neuro: No focal deficits grossly Data 05/23/24 22:50 05/23/24 22:50 A&P Assessment and plan (1) Suicidal ideation: (2) Infection of amputation stump: (3) Combative behavior: (4) Delirium: (5) Transient apnea: Plan 44 year old lady with lonstanding psychiatric history of depression, PTSD, history of self harming behaviors, history of recent left BKA stump cellulitis status post I&D on May 17 and following up with wound care. Currently presents to the hospital with chief complaints of being combative, showing suicidal ideation and combative behavior. She was hitting several hospital staff. Unable to tell exact details. She is currently received Geodon, received Haldol, ketamine in the emergency room. She had transient apnea as a result of sedation which required bag mask ventilation. Currently she is saturating 100% on room air. Patient is much more awake now, able to protect her airway. She is saturating 100% on room air. She is able to answer basic orientation questions, however does not have an extended conversation due to somnolence. Plan: Admit to the ICU as patient would likely require Precedex infusion once current sedation starts to wean off. Additionally would monitor her respiratory status closely given her recent apneic episode. Currently blood pressure 211/110 upon initial assessment. Down to 150/86 without any directed interventions. Likely related to acute stress. Will continue home dose of antihypertensives including amlodipine. As needed hydralazine added for SBP greater than 180. 96-hour hold initiated in the emergency room Psychiatry service consulted from the ER Possible that her acute delirium may be related to opiate withdrawal. Possibility of serotonin release syndrome on the differential given hypertension and mental status changes, though patient unable to tell me if she was taking recently prescribed Paxil alongside linezolid. As needed Ativan 2 mg IV every 6 hours as needed Recent wound cultures from I&D showing MSSA. Will initiate treatment with cefazolin 2 g IV every 8 hours for the same. Check blood cultures given acute delirium. CT head without acute intracranial abnormality Patient reports being a type I diabetic, however states that she has been off insulin for over 1 year. States that she does not need it . She may be referring to being a type II diabetic instead of type I diabetic. Check HbA1c. I do not see any insulin on her home medication list which would go against her being a type I diabetic. DVT prophylaxis: Lovenox 40 mg daily Full code Attestations 2 Medical Necessity Statement*: Greater than 2 midnight stay is anticipated Critical Care Time: The high probability of a clinically significant, sudden or life threatening deterioration of the patient's [respiratory, ID, Infectious, hemodynamic] s ystem(s) required my full and direct attention, intervention and personal management. The critical care time is as shown. This time is in addition to time spent performing any reported procedures but includes the following: [x] Data and vital sign review and interpretation [x] Patient assessment, examination and intervention [x] Documentation [x] Medication orders and management Critical Care Time (min): 40 Coding Level of Care Code Critical Care >/= 30 minutes Critical care time (in minutes): 40 The high probability of a clinically significant, sudden or life threatening deterioration, as referenced in this documentation, required my full and direct attention, intervention and personal management. The critical care time shown is in addition to time spent performing any reported separately billable procedures and includes the following: [x] Data and vital sign review and interpretation [x ] Patient assessment, examination and intervention [x] Medication orders and management [x] Patient/Family updates as able [x] Care Coordination and Documentation. Diagnoses Suicidal ideation R45.851 Infection of amputation stump T87.40 Combative behavior R46.89 Delirium R41.0 Transient apnea R06.81
[2024-05-24 05:11] LABS: Bilirubin Urine Negative (Negative); Blood Urine 2+ (Negative); Glucose Urine UA Trace (Normal); Ketones Urine Negative (Negative); Leukocyte Esterase Urine Negative (Negative); Nitrate Urine Negative (Negative); Protein Urine 3+ (Negative); Specific Gravity, Urine 1.008 (1.005-1.030); Urine Appearance Clear (CLEAR); Urine Color Yellow (Yellow)
[2024-05-24 05:16] LABS: Add Urine Microscopic? YES; Bacteria Urine None Seen /hpf; Hyaline Casts Urine 0-4 /lpf; RBC Urine 0-2 /hpf (0-2); Squamous Epithelial Cell Urine 0-5 /hpf (0-5); WBC Urine 0-5 /hpf (0-5)
[2024-05-24 05:18] LABS: Amphetamines Screen Urine Negative (Negative); Barbiturates Screen Urine Negative (Negative); Benzodiazepines Screen Urine Negative (Negative); Cocaine Screen Urine Negative (Negative); Opiate Screen Urine Negative (Negative); PCP Screen Urine Negative (Negative); THC Screen Urine Positive (Negative)
[2024-05-24] MEDS: enoxaparin 40 mg/0.4 mL Syringe SUBCUT (05:39)
[2024-05-24] MEDS: LORazepam 2 mg/mL INJ 1 mL IM ×2 (05:40→12:30)
[2024-05-24 06:01] LABS: Estmated Average Glucose 103; Hemoglobin A1C 5.2 % (4.0-6.0)
[2024-05-24] MEDS: ondansetron 2 mg/ML SDV 2 mL 4 MG IVP (07:22)
[2024-05-24] MEDS: PARoxetine 20 mg Tablet PO (09:10)
[2024-05-24] MEDS: ceFAZolin 2,000 mg SDV 2000 MG IVP ×3 (09:10→20:18)
[2024-05-24] MEDS: pregabalin 50 mg Capsule PO (09:10)
[2024-05-24] MEDS: pantoprazole DR 40 mg Tablet PO (09:10)
[2024-05-24] MEDS: amlodipine 5 mg Tablet PO (09:10)
--- NOTE | 2024-05-24 11:02 | CTR_ITS ---
PROCEDURE INFORMATION: Exam: CT Neck Without Contrast Exam date and time: 05/24/2024 2:54 PM Age: 44 years old Clinical indication: Dysphagia / difficulty swallowing; Additional info: Foreign body sensation TECHNIQUE: Imaging protocol: Computed tomography of the neck without contrast. Radiation optimization: All CT scans at this facility use at least one of these dose optimization techniques: automated exposure control; mA and/or kV adjustment per patient size (includes targeted exams where dose is matched to clinical indication); or iterative reconstruction. COMPARISON: CT cervical spin wo con* [id number] 12/17/2023 12:22 AM RADIATION DOSE METRICS: Total DLP (mGy-cm): 230.25 FINDINGS: Salivary glands: Normal. Glands are normal in size. Pharynx: Unremarkable. No significant tonsillar enlargement. Prevertebral and retropharyngeal spaces: Unremarkable. Larynx: Unremarkable. Epiglottis is normal. Thyroid: Normal. No enlarged or calcified nodules. Trachea: Visualized trachea is unremarkable. Lungs: 5 mm right upper lobe nodule on series 4, image 123 Lymph nodes: Unremarkable. No lymphadenopathy. Vasculature: Scattered atherosclerotic calcifications along the visualized thoracic aortic arch in the origins of the great vessels. Atherosclerotic calcifications of bilateral carotid bifurcations. Atherosclerotic calcifications along the carotid siphons. Bones/joints: Advanced degenerative disc disease again seen at C5-C6, not significantly changed since 12/17/2023. Soft tissues: Unremarkable. No significant soft tissue swelling. CT/CT neck wo con [id number] IMPRESSION: 1. No definite acute findings. 2. Advanced degenerative changes at C5-C6, similar to prior. 3. Scattered atherosclerotic calcifications as above, premature for age. 4. 5 mm ground-glass nodule in the right upper lobe. No routine follow-up is indicated. (Reference: Gennaro) REFERENCES: Solahojolie H, et al. Guidelines for Management of Incidental Pulmonary Nodules Detected on CT Images: From the Fleischner Society 2017. Radiology. 2017;284(1):228-243.
[2024-05-24 11:16] LABS: Basophils % 0.2 %; Hematocrit 33.1 % (36-47); Lymphocytes # 0.6 10^3/uL (0.8-4.8); Lymphocytes % 5.9 %; Mean Corpuscular HGB Conc 33.2 g/dL (30-55); Mean Corpuscular Hemoglobin 30.1 pg (27-33); Mean Corpuscular Volume 90.4 fl (85-98); Mean Platelet Volume 8.7 fL (7.4-10.4); Monocytes # 0.4 10^3/uL (0.2-0.9); Monocytes % 3.5 %; Neutrophils % 89.8 %; Nucleated Red Blood Cells % 0 %; Platelet Count 461 10^3/cmm (157-399); Red Blood Count 3.66 10^6/uL (3.85-5.65); Red Cell Distribution Width 13.3 % (12.1-15.1)
[2024-05-24 11:48] LABS: Alanine Aminotransferase 26 U/L (0-33); Albumin Level 4.1 g/dL (3.5-5.2); Alkaline Phosphatase 261 U/L (35-105); Anion Gap 17.6 (5-19); Aspartate Amino Transferase 31 U/L (0-32); Blood Urea Nitrogen 14 mg/dL (6-20); Calcium 9.4 mg/dL (8.5-10.5); Carbon Dioxide 24 mmol/L (22-29); Chloride 100 mmol/L (98-107); Creatinine Clr Calc Pharmacy 24.2773; Globulin 4.5 g/dL (1.3-4.6); Glomerular Filtration Rate 44.1 mL/min (90-130); Glucose 184 mg/dL (65-115); Osmolality Calculated 291 mOsm/kg (285-295); Potassium 3.6 mmol/L (3.5-5.1); Sodium 138 mmol/L (136-145); Total Bilirubin 0.4 mg/dL (0.15-1.2); Total Protein 8.6 g/dL (6.6-8.7)
[2024-05-24] MEDS: dexmedeTOMIDine 0.9 % NaCL 400 MCG/100 ML PREMIX IV (12:00)
--- NOTE | 2024-05-24 14:00 | PC.NURSE ---
Patient was putting her fingers in her mouth in an attempt to make herself throw up many times this shift. Multiple small episodes of green emesis.
--- NOTE | 2024-05-24 14:44 | CTR_ITS ---
PROCEDURE INFORMATION: Exam: CT Left Lower Extremity, Knee Exam date and time: 05/24/2024 2:58 PM Age: 44 years old Clinical indication: Other: Abscess; Prior surgery; Surgery date: 6+ months; Surgery type: Luis E lower legs; Additional info: Stump abscess TECHNIQUE: Imaging protocol: CT of the left lower extremity without contrast was performed. Exam focused on the knee. Radiation optimization: All CT scans at this facility use at least one of these dose optimization techniques: automated exposure control; mA and/or kV adjustment per patient size (includes targeted exams where dose is matched to clinical indication); or iterative reconstruction. COMPARISON: MR knee LT wo con* [id number] 05/17/2024 9:13 AM RADIATION DOSE METRICS: Total DLP (mGy-cm): 660.6 FINDINGS: Bones/joints: Prior BKA. There is prominent soft tissue thickening and ulceration of the stump with surrounding edema compatible with cellulitis. There is complex fluid along the anterolateral superficial muscular fascia, which may represent phlegmon or developing abscess (for example, image 121 of series 5). There is mild periostitis of the tibial stump, likely reactive. No gross osseous erosion to suggest osteomyelitis at this time. Trace suprapatellar joint effusion. Soft tissues: As above. CT/CT knee LT wo con* [id number] IMPRESSION: 1. Cellulitis with possible phlegmon/developing abscess along the anterolateral superficial muscular fascia. There is underlying mild periostitis of the tibial stump, likely reactive. No shelbi osseous erosion to suggest osteomyelitis at this time. Consider correlation with MRI when clinically feasible.
--- NOTE | 2024-05-24 14:52 | P.EN_ITS ---
Event Note 2 Event Note: Seen multiple times during the day. When seen earlier in the morning at around 10 AM. Admitted earlier today morning. On admission patient elevated blood pressure. Patient is admitted for agitation. Current on examination patient is restless though not agitated laying comfortably in bed. Patient does not have an IV and ultrasound-guided IV line is being attempted. Patient does have an elevated blood pressure of 200 systolic. Patient could not get oral medication that she vomited and no IV medication could not be given because of no IV access for now. PICC line has been ordered but is awaited. Patient complaining of feeling of foreign body in her neck. Denies any difficulty in breathing. After nursing staff patient has been inducing vomiting with same feeling. On repeat seeing the patient at around 1 IV line was achieved Precedex of started after which her blood pressures improved to 130 systolics. Plan: Goal blood pressure less than 140/90 mmHg. For now blood pressure is better once patient is less agitated. Continue with amlodipine 5 mg oral daily along with hydralazine 10 mg IV every 4 hours as needed for systolic of more than 160 mmHg. Heart rate at target. Continue with home dose of Paxil, pregabalin, Requip. Patient was recently found to have MSSA abscess of the stump. Seems to have wound dehiscence as above. CT neck to rule out foreign body and CT of the left stump. If positive will plan for MRI of the left stump to rule out osteomyelitis. Patient was discharged on Augmentin and linezolid. Unsure if patient has been taking her medications because of foreign body sensation. For now continue with cefazolin 2 g IV 3 times daily. Blood culture ordered but not collected. Will follow. Awaiting psych recommendations and evaluation. 96-hour hold. Event Notes Attestations 2 Time Spent in Patient Care: Greater than 35 minutes Additional care for elevated blood pressure, wound examination, sensation of foreign body in the right High MDM includes number and complexity of problems actively addressed during encounter, amount and/or complexity of data reviewed/ordered [ previous or external records, resulted lab(s)/test(s), ordered lab(s)/test(s), independent test interpretation and other healthcare professional discussion] and described risk of complication, morbidity or mortality of management as documented Other Coding Information Prolonged care (total time indicated above or notated here)
--- NOTE | 2024-05-24 15:00 | PC.NURSE ---
Wounds Patient has scattered bruising covering entire body in multiple stages of healing. Left BKA stump has open wound with serous fluid draining. CT ordered
--- NOTE | 2024-05-24 16:44 | XRR_ITS ---
PROCEDURE INFORMATION: Exam: XR Chest Exam date and time: 05/24/2024 5:02 PM Age: 44 years old Clinical indication: Device placement; Patient HX: Picc confirmation only TECHNIQUE: Imaging protocol: Radiologic exam of the chest. Views: 1 view. COMPARISON: CR (CHEST, ) 05/23/2024 10:36 PM FINDINGS: Tubes, catheters and devices: Interval placement of a right arm PICC with the tip in the lower SVC. Lungs: Unremarkable. No consolidation. Pleural spaces: Unremarkable. No pleural effusion. No pneumothorax. Heart/Mediastinum: Unremarkable. No cardiomegaly. Vasculature: Atherosclerotic aortic calcifications. Bones/joints: Unremarkable. XR/XR chest 1V portable [id number] IMPRESSION: Right arm PICC tip in the lower SVC.
[2024-05-24] MEDS: ropinirole 1 mg Tablet PO (20:17)
[2024-05-25] VITALS (25 sets, daily range): BP systolic 119–145; BP diastolic 72–86; PULSE 65–112; RESP 15–29; TEMP 37.1–37.6; O2SAT 96–100
[2024-05-25] MEDS: dexmedeTOMIDine 0.9 % NaCL 400 MCG/100 ML PREMIX 6.25 MCG IV (00:30)
--- NOTE | 2024-05-25 04:35 | PC.NURSE ---
Patient has not voided on this nurses shift, states I dont need to go right now . Bladder scanned patient with 301mL noted in bladder. Will continue to monitor patient.
[2024-05-25 06:03] LABS: Basophils % 0.6 %; Eosinophils # 0.1 10^3/uL (0.0-0.8); Eosinophils % 1.1 %; Lymphocytes # 1.8 10^3/uL (0.8-4.8); Lymphocytes % 28.6 %; Mean Corpuscular HGB Conc 32.2 g/dL (30-55); Mean Corpuscular Hemoglobin 30.3 pg (27-33); Mean Corpuscular Volume 94.1 fl (85-98); Mean Platelet Volume 8.7 fL (7.4-10.4); Monocytes # 0.5 10^3/uL (0.2-0.9); Neutrophils % 61.1 %; Nucleated Red Blood Cells % 0 %; Platelet Count 367 10^3/cmm (157-399); Red Blood Count 2.87 10^6/uL (3.85-5.65); Red Cell Distribution Width 13.4 % (12.1-15.1); White Blood Count 6.39 10^3/uL (3.29-11.43)
[2024-05-25 06:23] LABS: Alanine Aminotransferase 9 U/L (0-33); Albumin Level 3.2 g/dL (3.5-5.2); Alkaline Phosphatase 184 U/L (35-105); Anion Gap 13.1 (5-19); Aspartate Amino Transferase 16 U/L (0-32); Blood Urea Nitrogen 18 mg/dL (6-20); Carbon Dioxide 24 mmol/L (22-29); Chloride 99 mmol/L (98-107); Creatinine Clr Calc Pharmacy 40.1458; Globulin 3.5 g/dL (1.3-4.6); Glomerular Filtration Rate 32.4 mL/min (90-130); Glucose 125 mg/dL (65-115); Osmolality Calculated 279 mOsm/kg (285-295); Potassium 3.1 mmol/L (3.5-5.1); Sodium 133 mmol/L (136-145); Total Bilirubin 0.2 mg/dL (0.15-1.2); Total Protein 6.7 g/dL (6.6-8.7)
[2024-05-25] MEDS: pregabalin 50 mg Capsule PO (08:41)
[2024-05-25] MEDS: ceFAZolin 2,000 mg SDV 2000 MG IVP ×3 (08:41→20:23)
[2024-05-25] MEDS: amlodipine 5 mg Tablet PO (08:41)
[2024-05-25] MEDS: pantoprazole DR 40 mg Tablet PO (08:41)
[2024-05-25] MEDS: PARoxetine 20 mg Tablet PO (08:42)
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
--- NOTE | 2024-05-25 14:22 | CTR_ITS ---
PROCEDURE INFORMATION: Exam: CT Thoracic Spine Without Contrast Exam date and time: 05/25/2024 10:43 PM Age: 44 years old Clinical indication: Weakness; Pain in thoracic intervertebral disc disorder; Without myelpathy or radiculopathy; Additional info: Back pain TECHNIQUE: Imaging protocol: Computed tomography of the thoracic spine without contrast. Radiation optimization: All CT scans at this facility use at least one of these dose optimization techniques: automated exposure control; mA and/or kV adjustment per patient size (includes targeted exams where dose is matched to clinical indication); or iterative reconstruction. COMPARISON: CT thoracic spin wo con* [id number] 01/15/2021 5:02 PM RADIATION DOSE METRICS: Total DLP (mGy-cm): 823.13 FINDINGS: Bones/joints: No acute fracture. Normal alignment. T1-T2: No significant disc bulge or herniation. No severe spinal canal stenosis. No significant neural foraminal narrowing. T2-T3: No significant disc bulge or herniation. No severe spinal canal stenosis. No significant neural foraminal narrowing. T3-T4: No significant disc bulge or herniation. No severe spinal canal stenosis. No significant neural foraminal narrowing. T4-T5: No significant disc bulge or herniation. No severe spinal canal stenosis. No significant neural foraminal narrowing. T5-T6: No significant disc bulge or herniation. No severe spinal canal stenosis. No significant neural foraminal narrowing. T6-T7: No significant disc bulge or herniation. No severe spinal canal stenosis. No significant neural foraminal narrowing. T7-T8: No significant disc bulge or herniation. No severe spinal canal stenosis. No significant neural foraminal narrowing. T8-T9: No significant disc bulge or herniation. No severe spinal canal stenosis. No significant neural foraminal narrowing. T9-T10: No significant disc bulge or herniation. No severe spinal canal stenosis. No significant neural foraminal narrowing. T10-T11: No significant disc bulge or herniation. No severe spinal canal stenosis. No significant neural foraminal narrowing. T11-T12: No significant disc bulge or herniation. No severe spinal canal stenosis. No significant neural foraminal narrowing. T12-L1: No significant disc bulge or herniation. No severe spinal canal stenosis. No significant neural foraminal narrowing. Lungs: Bibasilar atelectasis. Heart: Cardiomegaly. Gallbladder and biliary ducts: Cholecystectomy. Other findings: Coronary artery atherosclerotic calcifications. CT/CT thoracic spin wo con* [id number] IMPRESSION: 1. Cardiomegaly. 2. Coronary artery atherosclerotic calcifications. 3. Bibasilar atelectasis. 4. Cholecystectomy.
[2024-05-25] MEDS: oxyCODONE-APAP 5-325 mg Tablet 1 TAB PO ×2 (15:49→19:42)
[2024-05-25] MEDS: potassium chloride ER 20 mEq Tablet PO (15:50)
--- NOTE | 2024-05-25 16:30 | P.NPUHP_ITS ---
Providers/Chief Complaint 2 Admitting Physician: Sonali Emery MD Primary Care Provider: Monika Simpson MD Chief Complaint: Psych eval HPI NPU History of Present Illness Cherrie Solomon is a 44 year old female who presented to the emergency department with the following report: Chief Complaint: Psychiatric Symptoms Stated Complaint: Psych eval Time Seen by Provider: 05/23/24 22:16 History of Present Illness: 44-year-old female well-known to the emergency department service. She presents by EMS ambulance. They were called for self-harm behavior and suicidal ideations. She presents combative, not answering questions, thrashing around in bed. She is currently having to be held down and striking at staff. No distinct history is able to be obtained from this patient. She was admitted to the ICU for definitive treatment of those issues. She was placed on a 96-hour hold secondary to her behaviors and reports of lethality. A psychiatric consult was requested to assist in determining how to manage her situation. She is known to inpatient and outpatient psychiatric services through treatment at [facility]. Her last inpatient discharge was in October 2021 and an excerpt of the discharge summary is included below for context. She was a limited historian today as she had just received some medications because as the Precedex was being lowered she became combatant and was trying to bang her head. She presents reporting that since we last saw her back in 2021 that she has been doing okay, staying at the same residence with her daughter her 3 grandchildren and her . But she denied being actively involved in treatment. 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 She reports that she came here because she was in significant pain and that she felt like killing herself if the pain was not managed. We discussed speaking to her as she got clear and trying to figure out if there is some adjustments we can make in medication in order to assist her with her depression. Per her 11/13/2021 [facility] inpatient psychiatric discharge summary: History of Present Illness Cherrie Solomon is a 41 year old female admitted through our emergency department with the following report: HPI: [41]yo patient w/ hx of SI/self-harm behavior BIBA for significant r side flank pain and desire for suicide. Patient tells me that for the last day she has sustained significant right-sided flank pain. Patient has history of renal colic. Patient says that she can no longer take the pain started hitting her head against the wall. on arrival, the patient is AAOx3 and cooperative with my evaluation. No focal complaints of chest pain, shortness of breath, palpitations, N/V, focal GI/ complaints. Currently reports SI. No complaints of hallucinations. She was admitted to the neuropsychiatry unit for definitive treatment of these issues. She says that she has been doing fairly well up until yesterday. Her pain increased yesterday. She was good.. She said that she has been trying to cut down some on her pain medications but had plenty. She denies anything bad happening. She denies any extra stress or increased activity. She has been frequently putting her finger down her throat making herself throw up. He says that is to divert her thoughts from the pain. She says that her pain currently is about 8. She was given some oxycodone at 1:30 AM but they say that she made herself throw up shortly afterwards and probably did not get much effect.HPI: [41]yo patient w/ hx of SI/self-harm behavior BIBA for significant r side flank pain and desire for suicide. Patient tells me that for the last day she has sustained significant right-sided flank pain. Patient has history of renal colic. Patient says that she can no longer take the pain started hitting her head against the wall. on arrival, the patient is AAOx3 and cooperative with my evaluation. No focal complaints of chest pain, shortness of breath, palpitations, N/V, focal GI/ complaints. Currently reports SI. No complaints of hallucinations. Below is the discharge summary from her most recent admission: BACK PAIN Brief History: History of Present Illness Cherrie Solomon is a 41 year old female admitted through the emergency department with the following report: Chief Complaint: Psychiatric Symptoms Stated Complaint: BACK PAIN Time Seen by Provider: 09/09/21 18:41 History of Present Illness: HPI Narrative: This is a 41-year-old female who left our neuropsychiatric unit yesterday. She had come in because she was banging her head against the wall, evidently due to uncontrolled chronic pain she had said. EMS was called her house again with the same complaint today. She was violent, thrashing around, banging her head on the wall. After being loaded into the ambulance, she proceeded to bang her head on the side railing and the wall of the ambulance. She was given ketamine in route for this. On my evaluation she is not answering questions. She is sitting up in the bed and three-point restraints (she has a lower extremity amputation) banging her head on the side railing. She did tell EMS that she wanted to . MD complaint: suicidal ideation and altered mental status Onset (ago): hour(s) Duration: constant History of same: Yes Relieving factors: none Exacerbating factors: none Context: not taking psychiatric medications Associated psychiatric symptoms: depression Associated symptoms: Reports other Treatments prior to arrival: physical restraints and chemical restraints She was admitted to the neuropsychiatry unit for definitive treatment of her issues. She continues to be trying to get herself complaining of severe back pain. She does not know what was different. She continues to take pain medication and says that she still has some left. She used marijuana on the day that she went home but not yesterday. She was unable to say how bad the pain was the day that she went home but it was much worse yesterday. She says that she was not much more active yesterday. He does not think that increased activity because the pain to be worse. She says that she wants to because the pain is so bad. She reports that she has no idea what caused her pain to be worse. Her urine drug screen was only positive for marijuana. Multiple admissions and each time she comes in with pain so bad that she wants to . She was just released from the hospital 2 days ago with the following discharge summary: Diagnoses at Discharge Discharge Diagnosis (1) Intentional self-harm: Status: Acute (2) Suicidal ideation: Status: Acute (3) Insomnia: Status: Acute Qualifiers: Insomnia type: due to medical condition Qualified Code(s): G47.01 - Insomnia due to medical condition (4) GERD (gastroesophageal reflux disease): Status: Acute Qualifiers: Esophagitis presence: without esophagitis Qualified Code(s): K21.9 - Gastro-esophageal reflux disease without esophagitis (5) ALEJANDRO (generalized anxiety disorder): Status: Acute (6) Noncompliance: Status: Acute (7) Dehiscence of amputation stump: Status: Acute (8) Foot osteomyelitis, right: Status: Acute Qualifiers: Osteomyelitis type: other chronic Qualified Code(s): M86.671 - Other chronic osteomyelitis, right ankle and foot (9) Diabetic ophthalmopathy: Status: Acute (10) Coronary artery disease: Status: Acute Permanent problem details: hx of stenting Qualifiers: Coronary Disease-Associated Artery/Lesion type: [place] artery [place] vs. transplanted heart: [place] heart Associated angina: without angina Qualified Code(s): I25.10 - Atherosclerotic heart disease of [place] coronary artery without angina pectoris (11) Diabetic neuropathy: Status: Acute Qualifiers: Diabetes mellitus type: type 1 Diabetes mellitus complication detail: diabetic polyneuropathy Qualified Code(s): E10.42 - Type 1 diabetes mellitus with diabetic polyneuropathy (12) Amputation of toe of right foot: Status: Acute Reason for Visit: SELF HARM COMBATIVE Brief History: History of Present Illness Cherrie Solomon is a 41 year old female who presented to the emergency department with the following report: Chief complaint: Psychiatric Symptoms Stated complaint: SELF HARM COMBATIVE Time Seen by Provider: 08/29/21 11:08 History of Present Illness: HPI narrative: HPI: [41]yo patient w/ hx of depression BIBA for suicidal ideation. Patient was found banging her head against the wall. EMS gave patient 250mg of IM ketamine to calm her down and stop self-harm/ On arrival, the patient is AAOx3 and cooperative with my evaluation. No focal complaints of chest pain, shortness of breath, palpitations, N/V, focal GI/ complaints. Denies HI currently. No complaints of hallucinations. Onset: acute Duration: ongoing Location: home Severity: severe Associated symptoms: Deny chest pain, dyspnea, nausea, rash, palpitations or vomiting. He was admitted to the neuropsychiatric unit for definitive treatment of those issues. 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 Reports he had outpatient services at [facility] in [place] and reports that she take Cymbalta and Seroquel. She denies smoking cigarettes drinking alcohol, does report daily marijuana the other illicit drugs but does report getting pain medication and reports that he never been to rehab or had a DUI. She essentially reports that she is here for the same reason she was on the inpatient MedSurg unit when I saw her before which is being so depressed because her pain is not well managed. She has a abrasion on the middle of her forehead which she reports is from banging her head from frustration. She also showed me her thigh and for that the bruising that was notable on the right thigh related to taking a fork and hitting her leg but not piercing the skin. About the lack of expertise that the unit has in relation to pain management and that her best option to get her pain management would be returning to the pain management clinic. There is not to be any doctors in the hospital that are going to suggest that they had a better understanding of her situation and that her pain clinic does. She had not been taking her Cymbalta so we discussed the risk-benefit alternatives of restarting the Cymbalta and 20 mg twice a day with a plan to discharge at the 30 mg that she was taking.. An excerpt from the consult is included below for context. Though she has had other consultation contact later in the year last year. Hospital Course She slowly acclimated to the individual, group and milieu therapies provided. Seroquel was increased to 200 mg and Cymbalta was rapidly increased to 120 mg daily. Other medications were left unchanged. She tolerated these doses and showed steady improvement during her stay. She was able to contract for safety outside hospital prior to discharge. During the hospitalization, patient had routine laboratory studies which were within normal limits except for few outliers. Additionally there was a general medical evaluation which was also within normal limits and revealed no new acute processes. Discharge Summary: At the time of discharge, lethality was denied. Mood and anxiety were well managed. Patient endorsed a plan to follow-up with the aftercare recommendations of the treatment team. Patient was evaluated and deemed to be absent credible lethality, and had achieved the maximum benefit from an inpatient hospitalization, so was discharged. Hospital Course She slowly acclimated to the individual, group and milieu therapies provided. Unfortunately once again psychiatry was challenged to manage her psychiatric concerns but the significant medical concerns that were likely not addressed secondary to the psychiatric nature of her presentation and behaviors. We were able to get her connection in the [facility] program as well as services through [facility] that should assist her in home medication management with the nurse going in. She was able to contract for safety outside the hospital prior to discharge. She had significant improvement from initial presentation. Exam we had significant resistance and work slowly getting her home health care. During the hospitalization, patient had routine laboratory studies which were within normal limits except for few outliers. Additionally there was a general medical evaluation which was also within normal limits and revealed no new acute processes. Discharge Summary: At the time of discharge, she denied psychosis or lethality. Mood and anxiety were well managed. Patient endorsed a plan to avoid all drugs of abuse and follow-up with the aftercare recommendations of the treatment team. Patient was evaluated and deemed to be absent credible lethality, and had achieved the maximum benefit from an inpatient hospitalization, so was discharged. Meds NPU Home Medications Medication Instructions Recorded Confirmed Last Taken Type pregabalin 50 mg capsule 50 mg PO BID 05/17/24 05/25/24 05/16/24 History amlodipine 5 mg tablet 5 mg PO DAILY 30 days #30 tabs 05/19/24 05/25/24 Unknown Rx amoxicillin 875 mg-potassium 1 tab PO BID 10 days #20 tabs 05/19/24 05/25/24 Unknown Rx clavulanate 125 mg tablet linezolid 600 mg tablet (Zyvox) 600 mg PO Q12H 10 days #20 tabs 05/19/24 05/25/24 Unknown Rx metoclopramide HCl 10 mg tablet 10 mg PO QID PRN Constipation #1 05/19/24 05/25/24 05/16/24 Rx tab oxycodone 5 mg tablet 5 mg PO Q6H PRN pain 5 days #20 05/19/24 05/25/24 Unknown Rx tabs paroxetine HCl 10 mg tablet 20 mg (2 x 10 mg) PO DAILY 30 days 05/19/24 05/25/24 Unknown Rx #60 tabs Allergies Allergy/AdvReac Type Severity Reaction Status Date / Time morphine Allergy ALGY-Difficulty Verified 06/19/22 11:02 Breathing sulfamethoxazole Allergy ADR-Vomitin Verified 08/14/22 22:19 [From Bactrim] g trimethoprim [From Bactrim] Allergy ADR-Vomitin Verified 08/14/22 22:19 g PFSH NPU 2 PFSH: Medical History Urinary retention Septic prepatellar bursitis of left knee Chronic pain Hyperglycemia Anemia of chronic disease Insomnia GERD (gastroesophageal reflux disease) ALEJANDRO (generalized anxiety disorder) C. 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 CKD (chronic kidney disease) stage 2, GFR 60-89 ml/min baseline Cr is around 1.0 Diabetic foot ulcer s/p surgical intervention and eventual amputation Hyperlipidemia Coronary artery disease hx of stenting Diabetic gastroparesis Diabetes mellitus type 1 diagnosed age 15, history of peripheral neuropathy, gastroparesis and nephropathy Surgical History Hx of angioplasty H/O esophagogastroduodenoscopy (12/31/20) Bile reflux gastritis, grade B esophagitis Hx of cholecystectomy History of amputation of right forefoot Below-knee amputation of left lower extremity S/P percutaneous endoscopic gastrostomy (PEG) tube placement H/O exploratory laparotomy x 3 Previous section x 3 S/P coronary artery stent placement x 1 Family History Unknown Diabetes extensive, type II Other Congestive heart failure (CHF) Social History Smoking and tobacco/nicotine status: former use of tobacco/nicotine Quit status (tobacco/nicotine): has quit using Former quit date comment: 15 yrs ago Alcohol intake: former Former alcohol use details: 15 yrs ago Substance/Drug Use: current Substance/Drug use frequency: daily Household members: spouse Marital status: Current occupation: disabled Sexually active: Yes (1, ) Female Reproductive History: Spontaneous abortions: No Mental Status Exam 2 MSE Comments: This is an overweight white female in hospital scrubs with limited grooming and eye contact.? With notable below-knee amputation bilaterally. No abnormal movements except for psychomotor retardation.? Mostly cooperative with exam in mild to moderate distress.? Speech was decreased rate and volume.? Mood described as depressed, affect congruent.? Thought process organized.? Thought content: Patient endorsed suicidal but denied homicidal ideation, there were no delusions reported or noted, she denied auditory or visual hallucinations.? Attention and concentration were limited and memory appeared mostly reliable but none were formally tested.? She is alert and oriented x3.? Insight and judgment are limited,?and impulse control is limited. Vitals/I&O/Wt Last Vital Signs Temp 98.2 F 05/26/24 04:00 Pulse 57 L 05/26/24 08:00 Resp 18 05/26/24 08:58 BP 132/83 05/26/24 08:00 Pulse Ox 99 05/26/24 08:58 O2 Del Method Room Air 05/26/24 08:00 O2 Flow Rate 2 05/23/24 23:49 Weight last 48 hrs Weight 63.5 kg Weight 61.5 kg Data NPU 05/25/24 05:23 05/27/24 04:27 Micro: Microbiology 05/24/24 11:07 Blood Culture - Preliminary Blood NEGATIVE TO DATE 05/24/24 11:07 Blood Culture - Preliminary Blood SPECIMEN COLLECTED Microbiology 05/24/24 11:07 Blood Blood Culture - Preliminary NEGATIVE TO DATE 05/24/24 11:07 Blood Blood Culture - Preliminary SPECIMEN COLLECTED A&P Assessment and plan (1) Anemia of chronic disease: (2) Suicide ideation: (3) Acute flank pain: (4) Depression: Qualifiers: Depression Type: unspecified Qualified Code(s): F32.9 - Major depressive disorder, single episode, unspecified (5) Below-knee amputation of left lower extremity: (6) ALEJANDRO (generalized anxiety disorder): (7) Diabetic ophthalmopathy: (8) Diabetic gastroparesis: (9) Insomnia: Qualifiers: Insomnia type: due to medical condition Qualified Code(s): G47.01 - Insomnia due to medical condition (10) Diabetes mellitus type 1: Qualifiers: Diabetes mellitus complication status: with hyperglycemia Qualified Code(s): E10.65 - Type 1 diabetes mellitus with hyperglycemia (11) GERD (gastroesophageal reflux disease): Qualifiers: Esophagitis presence: without esophagitis Qualified Code(s): K21.9 - Gastro-esophageal reflux disease without esophagitis (12) Amputation of toe of right foot: (13) Suicidal ideation: (14) Combative behavior: (15) Suicide attempt: (16) History of financial difficulties: (17) Infection of amputation stump: (18) Pain of amputation stump of left lower extremity: (19) Low back pain: Plan This is a 44-year-old female with significant past psychiatric and addiction issues with frequent suicidal ideation secondary to her medical comorbidities presents again with suicidality which is connected to reported pain syndrome now with bilateral BKA. Plan: 1.? Continue current medication.? 2.? On 96-hour hold so will evaluate for need for transfer to neuropsychiatric unit. 3.? Obtain collateral information. 4.? Need to evaluate whether this represents some kind of acute decompensation or if she is at baseline with these complaints. 5.? Will continue to follow. Involuntary Hold Information 2 96 Hour Hold: 96 Hour Involuntary Admission: No Attestations NPU 2 Medical Necessity Statement*: See primary physicians notes for medical necessity. She will likely need inpatient psychiatric hospitalization. Coding Level of Care Code Acute Code for g Fwd Diagnoses Anemia of chronic disease D63.8 Suicide ideation R45.851 Acute flank pain R10.9 Depression, unspecified depression type F32.9 Depression Type: unspecified Below-knee amputation of left lower extremity S88.112A ALEJANDRO (generalized anxiety disorder) F41.1 Diabetic ophthalmopathy E11.39 Diabetic gastroparesis E11.43; K31.84 Insomnia due to medical condition G47.01 Insomnia type: due to medical condition Type 1 diabetes mellitus with hyperglycemia E10.65 Diabetes mellitus complication status: with hyperglycemia Gastroesophageal reflux disease without esophagitis K21.9 Esophagitis presence: without esophagitis Amputation of toe of right foot S98.131A Combative behavior R46.89 Suicide attempt T14.91XA History of financial difficulties Z87.898 Infection of amputation stump T87.40 Pain of amputation stump of left lower extremity T87.89; M79.605 Low back pain M54.5
[2024-05-25] MEDS: HYDROmorphone 1 mg/mL INJ 1 mL 0.5 MG IVP ×2 (16:34→17:34)
[2024-05-25] MEDS: dexmedeTOMIDine 0.9 % NaCL 400 MCG/100 ML PREMIX IV (16:51)
[2024-05-25] MEDS: OLANZapine 10 mg VIAL 2.5 MG IM (17:15)
[2024-05-25] MEDS: water for injection-sterile 10 ML 12 ML (17:15)
[2024-05-25] MEDS: haloperidol inj 5 mg/mL INJ 1 mL 2 MG IVP (17:34)
--- NOTE | 2024-05-25 17:37 | PC.NURSE ---
Patient very upset. Multiple attempts to controls pain made. Multiple conversations with Docter about controlling pain and agitation. Multiple attempts by staff to keep patient from harming herself. Patient attempted to hit head on bed rail and attempted to hit herself in the head. Multiple attempts made to educate patient the importance of deep breathing exercises, importance of not causing self harm and relaxation techniques. Even with all attempts patient still tried to inflict self harm. Provider aware of medical restraint use. See MAR for medications given.
[2024-05-25] MEDS: LORazepam 2 mg/mL INJ 1 mL IM (18:14)
[2024-05-25] MEDS: acetaminophen 325 mg Tablet 650 MG PO (19:41)
[2024-05-25] MEDS: ropinirole 1 mg Tablet PO (20:24)
--- NOTE | 2024-05-25 22:11 | PC.NURSE ---
Resting calmly in bed, 1:1 sitter at bedside, not currently pulling at PICC line or cardiac monitors. Bilat soft wrist restraints removed.
--- NOTE | 2024-05-25 23:26 | PC.NURSE ---
To CT for CT of thoracic spine as ordered. Tolerated well, returned to room via bed.
[2024-05-26] VITALS (43 sets, daily range): BP systolic 91–214; BP diastolic 51–113; PULSE 56–112; RESP 12–25; TEMP 36.5–36.8; O2SAT 97–100
[2024-05-26] MEDS: oxyCODONE-APAP 5-325 mg Tablet 1 TAB PO ×4 (04:47→16:58)
[2024-05-26] MEDS: dexmedeTOMIDine 0.9 % NaCL 400 MCG/100 ML PREMIX 7.81 MCG IV (04:53)
[2024-05-26 05:54] LABS: Blood Urea Nitrogen 22 mg/dL (6-20); Carbon Dioxide 24 mmol/L (22-29); Chloride 103 mmol/L (98-107); Creatinine Clr Calc Pharmacy 39.1485; Glomerular Filtration Rate 30.3 mL/min (90-130); Glucose 127 mg/dL (65-115); Magnesium 1.8 mg/dL (1.7-2.3); Osmolality Calculated 289 mOsm/kg (285-295); Sodium 137 mmol/L (136-145)
[2024-05-26 05:55] LABS: Anion Gap 14.5 (5-19); Potassium 4.5 mmol/L (3.5-5.1)
[2024-05-26] MEDS: pantoprazole DR 40 mg Tablet PO (08:31)
[2024-05-26] MEDS: ceFAZolin 2,000 mg SDV 2000 MG IVP ×3 (08:31→21:20)
[2024-05-26] MEDS: PARoxetine 20 mg Tablet PO (08:31)
[2024-05-26] MEDS: amlodipine 5 mg Tablet PO (08:31)
[2024-05-26] MEDS: pregabalin 50 mg Capsule PO ×2 (08:31→17:30)
--- NOTE | 2024-05-26 12:44 | P.PN_ITS ---
Subjective 2 Subjective: Seen this morning. Patient was seen by psychiatry yesterday. Yesterday for periods of combativeness and agitation Precedex drip had to be restarted and was maxed out. Patient also received Ativan, Zyprexa, Haldol. She was hitting her head against the rails. Ketamine was requested to be given by ER doctor however at that point patient was calm therefore it was held. Vitals/I&O/Wt Last Vital Signs Temp 98.2 F 05/26/24 04:00 Pulse 78 05/26/24 12:00 Resp 21 H 05/26/24 12:00 BP 116/67 05/26/24 12:00 Pulse Ox 98 05/26/24 12:00 O2 Del Method Room Air 05/26/24 12:00 O2 Flow Rate 2 05/23/24 23:49 05/25/24 05/26/24 05/26/24 22:59 06:59 14:59 Intake Total 149.360 / 651.865 258.813 / 910.678 516.659 / 516.659 Output Total 1200 / 1700 Balance 149.360 / 151.865 -941.187 / -789.322 516.659 / 516.659 Weight last 48 hrs Weight 63.5 kg Weight 61.5 kg Physical Exam 2 Narrative: General: Alert oriented x 3. HEENT: PERRLA, pupils bilaterally equal and reactive, pallors not present Chest: Normal vesicular breath sounds, no added sounds, equal good air entry bilaterally CVS: S1-S2 regular, no murmurs, no tachycardia, no gallops, no rubs Abdomen: Soft, nontender, bowel sounds present Neuro: No focal deficits grossly Data 05/25/24 05:23 05/26/24 04:50 Micro: Microbiology 05/24/24 11:07 Blood Culture - Preliminary Blood NEGATIVE TO DATE 05/24/24 11:07 Blood Culture - Preliminary Blood NEGATIVE TO DATE A&P Assessment and plan (1) Suicidal ideation: (2) Infection of amputation stump: (3) Combative behavior: (4) Delirium: (5) Transient apnea: Plan 44 year old lady with lonstanding psychiatric history of depression, PTSD, history of self harming behaviors, history of recent left BKA stump cellulitis status post I&D on May 17 and following up with wound care. Currently presents to the hospital with chief complaints of being combative, showing suicidal ideation and combative behavior. She was hitting several hospital staff. Unable to tell exact details. She is currently received Geodon, received Haldol, ketamine in the emergency room. She had transient apnea as a result of sedation which required bag mask ventilation. Currently she is saturating 100% on room air. Patient is much more awake now, able to protect her airway. She is saturating 100% on room air. She is able to answer basic orientation questions, however does not have an extended conversation due to somnolence. Plan: Admit to the ICU as patient would likely require Precedex infusion once current sedation starts to wean off. Additionally would monitor her respiratory status closely given her recent apneic episode. Currently blood pressure 211/110 upon initial assessment. Down to 150/86 without any directed interventions. Likely related to acute stress. Will continue home dose of antihypertensives including amlodipine. As needed hydralazine added for SBP greater than 180. 96-hour hold initiated in the emergency room Psychiatry service consulted from the ER Possible that her acute delirium may be related to opiate withdrawal. Possibility of serotonin release syndrome on the differential given hypertension and mental status changes, though patient unable to tell me if she was taking recently prescribed Paxil alongside linezolid. As needed Ativan 2 mg IV every 6 hours as needed Recent wound cultures from I&D showing MSSA. Will initiate treatment with cefazolin 2 g IV every 8 hours for the same. Check blood cultures given acute delirium. CT head without acute intracranial abnormality Patient reports being a type I diabetic, however states that she has been off insulin for over 1 year. States that she does not need it . She may be referring to being a type II diabetic instead of type I diabetic. Check HbA1c. I do not see any insulin on her home medication list which would go against her being a type I diabetic. DVT prophylaxis: Lovenox 40 mg daily Full code 05/25 ? Wean off Precedex drip. ? Await psychiatric consult. Patient has suicidal ideation. She says this is related to her back pain. ? Has been to pain clinic in the past. Has chronic back pain. CT thoracic spine does not show a fracture. ? Patient denies having any falls or trauma ? For concern of wound cultures showing MSSA continue cefazolin every 8 hours at this time. Wound does not appear to be infected. Patient follows with wound care as an outpatient. Awaiting blood cultures. If negative patient may be able to discharge on cefadroxil. She will follow-up with wound care as an outpatient. ? Will await psychiatric recommendations at this time. Wean off Precedex today. Attestations 2 Medical Necessity Statement*: On 96-hour hold Diagnoses Suicidal ideation R45.851 Infection of amputation stump T87.40 Combative behavior R46.89 Delirium R41.0 Transient apnea R06.81
[2024-05-26] MEDS: acetaminophen 325 mg Tablet 650 MG PO (15:33)
[2024-05-26] MEDS: LORazepam 2 mg/mL INJ 1 mL 1 MG IVP (15:34)
--- NOTE | 2024-05-26 15:46 | PC.NURSE ---
Patient started to become agitated due to pain. Patient was given Tylenol for pain and ativan for agitation. Patient started to pinch their legs and started to hit themselves in the forehead unable to follow commands. Dr. Dahl ordered to give a combination of haldol,benadryl, and ativan. Patient became relaxed but was still hitting their forehead with their fist. Precedex was titrated up per protocol. Patient was able to follow commands better and was able to rest.
[2024-05-26] MEDS: LORazepam 2 mg/mL INJ 1 mL IM (15:58)
[2024-05-26] MEDS: diphenhydrAMINE 50 mg/mL SDV 1mL IM (15:58)
[2024-05-26] MEDS: haloperidol inj 5 mg/mL INJ 1 mL IM (15:58)
[2024-05-26] MEDS: HYDROmorphone 1 mg/mL INJ 1 mL IVP (17:30)
--- NOTE | 2024-05-26 17:58 | PC.NURSE ---
Patient is complaining of back pain even after giving tylenol and oxycodone. Doctor Nabila was notified and she ordered for 1 mg of dilaudid to be given. Patient was able to rest in bed after that.
[2024-05-26] MEDS: dexmedeTOMIDine 0.9 % NaCL 400 MCG/100 ML PREMIX 12.5 MCG IV (20:01)
[2024-05-26] MEDS: ropinirole 1 mg Tablet PO (21:20)
[2024-05-26 21:38] LABS: Glucose Point of Care 194 mg/dL (70-110)
[2024-05-27] VITALS (76 sets, daily range): BP systolic 104–177; BP diastolic 48–95; PULSE 55–97; RESP 12–31; TEMP 36.6–36.7; O2SAT 97–100; BMI 29.7
[2024-05-27 00:40] LABS: Glucose Point of Care 180 mg/dL (70-110)
[2024-05-27] MEDS: oxyCODONE-APAP 5-325 mg Tablet 1 TAB PO ×5 (00:46→20:05)
--- NOTE | 2024-05-27 00:50 | PC.NURSE ---
Pain Patient rated back pain at a 4 on a numerical 1-10 pain scale and requested oxycodone. Education provided on use of tylenol vs oxycodone. Patient stated that tylenol does not help her pain, that once the pain is at a 4 then it rapidly hits severe levels, and that she would like the pain medication prior to it hitting severe levels so that it can help control breakthrough pain. Medication administered per OCT.
--- NOTE | 2024-05-27 03:19 | PC.NURSE ---
Hyperglycemia Patient's blood glucose 194 at 2131 and then [address] Friedman notified; order placed by physician for sliding scale insulin.
[2024-05-27] MEDS: dexmedeTOMIDine 0.9 % NaCL 400 MCG/100 ML PREMIX 7.81 MCG IV (04:30)
[2024-05-27 06:22] LABS: Anion Gap 12.8 (5-19); Blood Urea Nitrogen 24 mg/dL (6-20); Calcium 7.8 mg/dL (8.5-10.5); Carbon Dioxide 25 mmol/L (22-29); Chloride 105 mmol/L (98-107); Creatinine Clr Calc Pharmacy 37.6721; Glomerular Filtration Rate 28.5 mL/min (90-130); Glucose 152 mg/dL (65-115); Magnesium 1.8 mg/dL (1.7-2.3); Osmolality Calculated 295 mOsm/kg (285-295); Potassium 3.8 mmol/L (3.5-5.1); Sodium 139 mmol/L (136-145)
[2024-05-27 07:07] LABS: Glucose Point of Care 117 mg/dL (70-110)
[2024-05-27] MEDS: pregabalin 50 mg Capsule PO (08:10)
[2024-05-27] MEDS: amlodipine 5 mg Tablet PO (08:10)
[2024-05-27] MEDS: pantoprazole DR 40 mg Tablet PO (08:10)
[2024-05-27] MEDS: ceFAZolin 2,000 mg SDV 2000 MG IVP (08:10)
[2024-05-27] MEDS: PARoxetine 20 mg Tablet PO (08:10)
[2024-05-27] MEDS: oxyCODONE 10 mg ER (12 HR) Tablet PO ×2 (08:38→18:25)
--- NOTE | 2024-05-27 13:54 | P.NPUPN_ITS ---
Subjective NPU 2 Subjective: Patient presented today reporting that she is doing well and that her medications are treating her pain levels. However she did already start talking about the fact that she had was not getting Flexeril recently. We discussed that the definitive answer to her situation is going to be in a pain clinic and is nothing that we are going to do on a neuropsychiatric unit skin affix this complicated balance of appropriate medication and avoidance of overmedication. She denied any side effects or medication and we continue to discuss appropriate depression management. Mental Status Exam 2 MSE Comments: This is an overweight white female in hospital scrubs with limited grooming and eye contact.? With notable below-knee amputation bilaterally. No abnormal movements except for psychomotor retardation.? Mostly cooperative with exam in mild to moderate distress.? Speech was decreased rate and volume.? Mood described as depressed, affect congruent.? Thought process organized.? Thought content: Patient endorsed suicidal but denied homicidal ideation, there were no delusions reported or noted, she denied auditory or visual hallucinations.? Attention and concentration were limited and memory appeared mostly reliable but none were formally tested.? She is alert and oriented x3.? Insight and judgment are limited,?and impulse control is limited. Vitals/I&O/Wt Last Vital Signs Temp 98.1 F 05/27/24 04:00 Pulse 83 05/27/24 12:45 Resp 19 H 05/27/24 12:45 BP 155/77 05/27/24 12:45 Pulse Ox 100 05/27/24 12:45 O2 Del Method Room Air 05/27/24 12:45 O2 Flow Rate 2 05/23/24 23:49 05/26/24 05/27/24 05/27/24 22:59 06:59 14:59 Intake Total 749.047 / 2079.330 1407.000 / 2304.000 32.740 / 32.740 Output Total 550 / 550 400 / 400 Balance 749.047 / 1280.000 474.000 / 1754.000 -367.260 / -367.260 Weight last 48 hrs Weight 64.5 kg Weight 63.5 kg Data NPU 05/25/24 05:23 05/27/24 04:27 Micro: Microbiology 05/24/24 11:07 Blood Culture - Preliminary Blood NEGATIVE TO DATE Microbiology 05/24/24 11:07 Blood Blood Culture - Preliminary NEGATIVE TO DATE A&P Assessment and plan (1) Anemia of chronic disease: (2) Suicide ideation: (3) Acute flank pain: (4) Depression: Qualifiers: Depression Type: unspecified Qualified Code(s): F32.9 - Major depressive disorder, single episode, unspecified (5) Below-knee amputation of left lower extremity: (6) ALEJANDRO (generalized anxiety disorder): (7) Diabetic ophthalmopathy: (8) Diabetic gastroparesis: (9) Insomnia: Qualifiers: Insomnia type: due to medical condition Qualified Code(s): G47.01 - Insomnia due to medical condition (10) Diabetes mellitus type 1: Qualifiers: Diabetes mellitus complication status: with hyperglycemia Qualified Code(s): E10.65 - Type 1 diabetes mellitus with hyperglycemia (11) GERD (gastroesophageal reflux disease): Qualifiers: Esophagitis presence: without esophagitis Qualified Code(s): K21.9 - Gastro-esophageal reflux disease without esophagitis (12) Amputation of toe of right foot: (13) Suicidal ideation: (14) Combative behavior: (15) Suicide attempt: (16) History of financial difficulties: (17) Infection of amputation stump: (18) Pain of amputation stump of left lower extremity: (19) Low back pain: Plan This is a 44-year-old female with significant past psychiatric and addiction issues with frequent suicidal ideation secondary to her medical comorbidities presents again with suicidality which is connected to reported pain syndrome now with bilateral BKA. Plan: 1.? Continue current medication.? 2.? Consider having her sign in versus put her here on a 21-day hold. 3.? Obtain collateral information. 4.? Transferred to the neuropsychiatric unit for definitive treatment of her issues. 5.? Continue one-to-one. 6. Encourage individual, group and milieu therapies. Involuntary Hold Information 2 96 Hour Hold: 96 Hour Involuntary Admission: No Attestations NPU 2 Medical Necessity Statement*: Inpatient hospitalization is medically necessary and the clinically appropriate intervention at this time. We will initiate medications and make changes as indicated. She will be in the hospital for over 2 midnights. Likely length of stay 3-5 days Coding Level of Care Code Acute Code for [facility] Fwd Diagnoses Anemia of chronic disease D63.8 Suicide ideation R45.851 Acute flank pain R10.9 Depression, unspecified depression type F32.9 Depression Type: unspecified Below-knee amputation of left lower extremity S88.112A ALEJANDRO (generalized anxiety disorder) F41.1 Diabetic ophthalmopathy E11.39 Diabetic gastroparesis E11.43; K31.84 Insomnia due to medical condition G47.01 Insomnia type: due to medical condition Type 1 diabetes mellitus with hyperglycemia E10.65 Diabetes mellitus complication status: with hyperglycemia Gastroesophageal reflux disease without esophagitis K21.9 Esophagitis presence: without esophagitis Amputation of toe of right foot S98.131A Combative behavior R46.89 Suicide attempt T14.91XA History of financial difficulties Z87.898 Infection of amputation stump T87.40 Pain of amputation stump of left lower extremity T87.89; M79.605 Low back pain M54.5
--- NOTE | 2024-05-27 14:03 | P.PN_ITS ---
Subjective 2 Subjective: Seen this morning. Patient is calm alert and oriented. Precedex drip has been turned off. Blood cultures are negative today. Vitals/I&O/Wt Last Vital Signs Temp 98.1 F 05/27/24 04:00 Pulse 83 05/27/24 12:45 Resp 19 H 05/27/24 12:45 BP 155/77 05/27/24 12:45 Pulse Ox 100 05/27/24 12:45 O2 Del Method Room Air 05/27/24 12:45 O2 Flow Rate 2 05/23/24 23:49 05/26/24 05/27/24 05/27/24 22:59 06:59 14:59 Intake Total 749.047 / 3484.973 4684.000 / 2304.000 32.740 / 32.740 Output Total 550 / 550 400 / 400 Balance 749.047 / 1280.000 474.000 / 1754.000 -367.260 / -367.260 Weight last 48 hrs Weight 64.5 kg Weight 63.5 kg Physical Exam 2 Narrative: General: Alert oriented x 3. HEENT: PERRLA, pupils bilaterally equal and reactive, pallors not present Chest: Normal vesicular breath sounds, no added sounds, equal good air entry bilaterally CVS: S1-S2 regular, no murmurs, no tachycardia, no gallops, no rubs Abdomen: Soft, nontender, bowel sounds present Neuro: No focal deficits grossly Data 05/25/24 05:23 05/27/24 04:27 Micro: Microbiology 05/24/24 11:07 Blood Culture - Preliminary Blood NEGATIVE TO DATE A&P Assessment and plan (1) Suicidal ideation: (2) Infection of amputation stump: (3) Combative behavior: (4) Delirium: (5) Transient apnea: Plan 44 year old lady with lonstanding psychiatric history of depression, PTSD, history of self harming behaviors, history of recent left BKA stump cellulitis status post I&D on May 17 and following up with wound care. Currently presents to the hospital with chief complaints of being combative, showing suicidal ideation and combative behavior. She was hitting several hospital staff. Unable to tell exact details. She is currently received Geodon, received Haldol, ketamine in the emergency room. She had transient apnea as a result of sedation which required bag mask ventilation. Currently she is saturating 100% on room air. Patient is much more awake now, able to protect her airway. She is saturating 100% on room air. She is able to answer basic orientation questions, however does not have an extended conversation due to somnolence. Plan: Admit to the ICU as patient would likely require Precedex infusion once current sedation starts to wean off. Additionally would monitor her respiratory status closely given her recent apneic episode. Currently blood pressure 211/110 upon initial assessment. Down to 150/86 without any directed interventions. Likely related to acute stress. Will continue home dose of antihypertensives including amlodipine. As needed hydralazine added for SBP greater than 180. 96-hour hold initiated in the emergency room Psychiatry service consulted from the ER Possible that her acute delirium may be related to opiate withdrawal. Possibility of serotonin release syndrome on the differential given hypertension and mental status changes, though patient unable to tell me if she was taking recently prescribed Paxil alongside linezolid. As needed Ativan 2 mg IV every 6 hours as needed Recent wound cultures from I&D showing MSSA. Will initiate treatment with cefazolin 2 g IV every 8 hours for the same. Check blood cultures given acute delirium. CT head without acute intracranial abnormality Patient reports being a type I diabetic, however states that she has been off insulin for over 1 year. States that she does not need it . She may be referring to being a type II diabetic instead of type I diabetic. Check HbA1c. I do not see any insulin on her home medication list which would go against her being a type I diabetic. DVT prophylaxis: Lovenox 40 mg daily Full code 05/27 ? Precedex at present stopped. ? Cefazolin IV to be stopped. Will switch to cefuroxime at this time twice daily. Patient to discharge on that for another 2 weeks. ? Add OxyContin 10 twice daily, oxycodone/acetaminophen every 4 hours as needed. ? Psychiatric consult appreciated. Patient has suicidal ideation. She says this is related to her back pain. ? Has been to pain clinic in the past. Has chronic back pain. CT thoracic spine does not show a fracture. ? Patient denies having any falls or trauma ?Patient transferred to psychiatry floor today. ? MSSA and wound culture. Will follow-up with ID and wound care as an outpatient. ?Transfer to n.p.u. today. Attestations 2 Medical Necessity Statement*: On 96-hour hold Diagnoses Suicidal ideation R45.851 Infection of amputation stump T87.40 Combative behavior R46.89 Delirium R41.0 Transient apnea R06.81
[2024-05-27] MEDS: LORazepam 2 mg/mL INJ 1 mL 1 MG IVP (14:25)
[2024-05-27 15:59] LABS: Glucose Point of Care 127 mg/dL (70-110)
--- NOTE | 2024-05-27 17:24 | PC.NURSE ---
Report was given to Maurice from NPU. Patient's PICC line was removed before transfering. Transfer to NPU was successful and without any complications. Patient was stable when this nurse left the patient's room in NPU.
[2024-05-27 17:45] LABS: Glucose Point of Care 324 mg/dL (70-110)
[2024-05-27] MEDS: insulin lispro 100 unit/1 mL SUBCUT ×2 (17:59→21:14)
[2024-05-27] MEDS: pregabalin 25 mg Capsule 50 MG PO (18:01)
[2024-05-27] MEDS: cefUROXime 250 mg Tablet 500 MG PO (18:24)
[2024-05-27 19:40] LABS: Glucose Point of Care 284 mg/dL (70-110)
[2024-05-27] MEDS: ropinirole 1 mg Tablet PO (21:14)
[2024-05-27 22:48] LABS: Glucose Point of Care 145 mg/dL (70-110)
[2024-05-28] VITALS (33 sets, daily range): BP systolic 104–208; BP diastolic 57–103; PULSE 61–120; RESP 13–25; TEMP 37.1–37.4; O2SAT 95–100
[2024-05-28] MEDS: oxyCODONE-APAP 5-325 mg Tablet 1 TAB PO ×4 (00:05→14:06)
[2024-05-28] MEDS: ibuprofen 600 mg Tablet PO (05:11)
[2024-05-28] MEDS: hyDROXYzine 25 mg Capsule 50 MG PO (05:12)
[2024-05-28] MEDS: ondansetron 4 MG Tablet PO (05:15)
[2024-05-28] MEDS: LORazepam 2 mg/mL INJ 1 mL IM ×2 (05:59→14:24)
[2024-05-28] MEDS: diphenhydrAMINE 50 mg/mL SDV 1mL IM (06:00)
[2024-05-28] MEDS: haloperidol inj 5 mg/mL INJ 1 mL IM (06:00)
--- NOTE | 2024-05-28 06:01 | PC.NURSE ---
Patient was given 2mg Ativan IM, 5mg Haldol IM in the right Vent-glut, 50mg Benadryl IM for agitation R/T her pain level with apparent adequate result.. She began hitting her head which prompted the B-25. Will continue to monitor for effectiveness and reduction of agitation.
[2024-05-28] MEDS: ziprasidone 20 mg/mL SDV IM (07:28)
--- NOTE | 2024-05-28 08:00 | PC.NURSE ---
Patient placed into wrist restrains at 0755 d/t violent behavior directed at self. Staff present. Two fingers width between body and restraints.
--- NOTE | 2024-05-28 08:06 | P.NPUPN_ITS ---
Mental Status Exam 2 [facility] [place] Comments: This is an overweight white female in hospital scrubs with limited grooming and eye contact.? With notable below-knee amputation bilaterally. No abnormal movements except for extreme psychomotor agitation with screaming and attempting to bang her head.? Mostly uncooperative with exam in extreme distress.? Speech was increased rate and volume.? Mood described as an pain, affect angry and irritable.? Thought process linear.? Thought content: Patient endorsed suicidal but denied homicidal ideation, there were no delusions reported or noted, she denied auditory or visual hallucinations.? Attention and concentration were limited and memory appeared mostly unreliable but none were formally tested.? She is alert and oriented x3.? Insight, judgment and impulse control are all impaired. Vitals/I&O/Wt Last Vital Signs Temp 98.1 F 05/27/24 19:48 Pulse 94 05/28/24 08:00 Resp 14 05/28/24 08:00 BP 183/97 05/28/24 08:00 Pulse Ox 98 05/28/24 08:00 O2 Del Method Room Air 05/28/24 08:00 Weight last 48 hrs Weight 64.5 kg Weight 64.5 kg Data NPU 05/29/24 04:50 05/29/24 04:50 A&P Assessment and plan (1) Anemia of chronic disease: (2) Suicide ideation: (3) Acute flank pain: (4) Depression: Qualifiers: Depression Type: unspecified Qualified Code(s): F32.9 - Major depressive disorder, single episode, unspecified (5) Below-knee amputation of left lower extremity: (6) ALEJANDRO (generalized anxiety disorder): (7) Diabetic ophthalmopathy: (8) Diabetic gastroparesis: (9) Insomnia: Qualifiers: Insomnia type: due to medical condition Qualified Code(s): G47.01 - Insomnia due to medical condition (10) Diabetes mellitus type 1: Qualifiers: Diabetes mellitus complication status: with hyperglycemia Qualified Code(s): E10.65 - Type 1 diabetes mellitus with hyperglycemia (11) GERD (gastroesophageal reflux disease): Qualifiers: Esophagitis presence: without esophagitis Qualified Code(s): K21.9 - Gastro-esophageal reflux disease without esophagitis (12) Amputation of toe of right foot: (13) Suicidal ideation: (14) Combative behavior: (15) Suicide attempt: (16) History of financial difficulties: (17) Infection of amputation stump: (18) Pain of amputation stump of left lower extremity: (19) Low back pain: Plan This is a 44-year-old female with significant past psychiatric and addiction issues with frequent suicidal ideation secondary to her medical comorbidities presents again with suicidality which is connected to reported pain syndrome now with bilateral BKA. Plan: 1.? Continue current medication.? 2.? Initiated 21-day hold paperwork. 3.? Obtain collateral information. 4.? Determine strategy for discharge given continued complaints of pain and need for seclusion and restraint. 5.? Continue one-to-one. 6. Encourage individual, group and milieu therapies. Involuntary Hold Information 2 96 Hour Hold: 96 Hour Involuntary Admission: No 96 Hour Hold Ending Date: 96 Hour Hold Ending Time: 00:01 Attestations NPU 2 Medical Necessity Statement*: Inpatient hospitalization is medically necessary and the clinically appropriate intervention at this time. We will initiate medications and make changes as indicated. Likely length of stay 3-5 days Coding Level of Care Code Acute Code for [facility] Fwd Diagnoses Anemia of chronic disease D63.8 Suicide ideation R45.851 Acute flank pain R10.9 Depression, unspecified depression type F32.9 Depression Type: unspecified Below-knee amputation of left lower extremity S88.112A ALEJANDRO (generalized anxiety disorder) F41.1 Diabetic ophthalmopathy E11.39 Diabetic gastroparesis E11.43; K31.84 Insomnia due to medical condition G47.01 Insomnia type: due to medical condition Type 1 diabetes mellitus with hyperglycemia E10.65 Diabetes mellitus complication status: with hyperglycemia Gastroesophageal reflux disease without esophagitis K21.9 Esophagitis presence: without esophagitis Amputation of toe of right foot S98.131A Combative behavior R46.89 Suicide attempt T14.91XA History of financial difficulties Z87.898 Infection of amputation stump T87.40 Pain of amputation stump of left lower extremity T87.89; M79.605 Low back pain M54.5
--- NOTE | 2024-05-28 08:14 | PC.NURSE ---
NEW ORDERS RECEIVED FROM DR. WALL TO OBTAIN A STAT EKG DUE TO INCREASE IN BLOOD PRESSURE 190/102. PT CONTINUES RESTRAINTS FOR SAFETY AND HAVING SELF HARM BEHAVIORS. RT NOTIFIED.
[2024-05-28] MEDS: oxyCODONE 10 mg ER (12 HR) Tablet PO ×2 (08:47→20:29)
[2024-05-28] MEDS: PARoxetine 20 mg Tablet PO (08:47)
[2024-05-28] MEDS: amlodipine 5 mg Tablet PO (08:48)
[2024-05-28] MEDS: pregabalin 25 mg Capsule 50 MG PO ×2 (08:48→20:27)
[2024-05-28] MEDS: pantoprazole DR 40 mg Tablet PO (08:48)
[2024-05-28] MEDS: cefUROXime 250 mg Tablet 500 MG PO ×2 (08:48→20:28)
--- NOTE | 2024-05-28 08:48 | PC.NURSE ---
Patient refused bedside EKG for hypertension. Multiple attempts were unsuccessful.
[2024-05-28 09:03] LABS: Glucose Point of Care 173 mg/dL (70-110)
--- NOTE | 2024-05-28 09:22 | PC.NURSE ---
NEW ORDERS RECEIVED FOR FLEXERIL 5 MG PO TID FOR MUSCLE SPASMS. EDUCATED PT ON NEW ORDERS AND VERBALIZED UNDERSTANDING. SUPPORT VOICED.
--- NOTE | 2024-05-28 09:23 | PC.RESP ---
stat ekg ordered. rt attempted to perform task but pt uncooperative and refusing. house sup stated to not do ekg and order would be cancelled
[2024-05-28] MEDS: insulin lispro 100 unit/1 mL SUBCUT (09:26)
--- NOTE | 2024-05-28 10:21 | ECG_ITS ---
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 Measurements Intervals [place] Rate: 96 P: 30 MD: 138 QRS: 55 QRSD: 97 T: 76 QT: 347 QTc: 439 Interpretive Statements SINUS RHYTHM Compared to ECG 12/16/2023 22:51:32 Sinus tachycardia no longer present Electronically Signed On 05-29-2024 07:42:18 CDT by Donal Johnson M.D. [email or web address] [id number]
[2024-05-28] MEDS: cyclobenzaprine 10 mg Tablet 5 MG PO ×2 (10:39→20:28)
--- NOTE | 2024-05-28 11:00 | PC.NURSE ---
Patient continues to continuously escalate, including yelling, throwing herself off of the bed into the floor, and repeatedly throwing herself forward, thrashing her head on the ground, furniture, estrada, etc. She tore her dressing off of her left stump and it is bleeding shelbi blood onto the floor and chucks pads underneath her legs. I attempted to dress the incision, however she refuses at this time. New chucks pads were placed under her legs to help collect drainage at this time. She has received all pain and PRN medications for behaviors at this time. Dr. Martinez is present on the floor and he, myself, Pilar Gomes overhead distribution engineer, and Genesis Hunt RN were speaking about patient's current status, safety, pain management, and acuity of behavior at this time. Patient continues to c/o severe, generalized pain 10/10 to generalized body, but focused in her lower back. After discussing with the team, I called and spoke with Dr. Dahl and asked her to please come and assess the patient. She presented to the unit promptly and we provided an update on patient, including multiple restraint incidents throughout the night, maximum doses of pain and behavioral meds, and patient's constant thrashing and throwing herself into the floor, causing potential a potential head injury. She and Dr. Martinez reviewed patient's current treatment plan and the decision was made to ensure patient didn't have a back injury we weren't aware of. Dr. Dahl provided an order for an urgent MRI of thoracic and lumbar spine as well as Methocarbamol and Xanax to begin now. She assessed the patient then departed the unit. Patient immediately started banging her head into the floor and furniture again and was unable to be de-escalated verbally. She was again placed in restraints and had c/o nausea. I spoke with Dr. Dahl again and informed her of new symptom as she had hit her head multiple times today. She cancelled the order for Methocarbamol and Xanax and stated that patient would need a STAT CT without contrast to rule out head injury, we would transfer to ICU, and initiate Precedex again. She states that she will initiate the transfer routine and Precedex if I would place the order for CT. I called and spoke with Marci Heard, Rn Managed Care and discussed the CT order, as it will need to be STAT after patient has reached a higher level of sedation. She states to place the order as STAT and include in the documentation that nursing was attempting to further sedate patient and would call when they are ready for CT. I placed the order per verbal order from Dr. Dahl with guidance from Marci as stated above. I huddled with Genesis Hunt RN and Pilar Gomes overhead distribution engineer and informed them of the plan and requested an ICU bed from Pilar Gomes. I reviewed the changes with Dr. Martinez, Genesis Abbott, ACNO, Tomas Sloan, CNO/OFFICE MACHINERY OR EQUIPMENT INSTALLER, and Pilar Rivera, Inspector Integrated Circuitsdeaf and hard of hearing teacher. Everyone is in agreement with the plan at this time. Anita Evangelista RN is going to go with patient to ICU and be utilized as the 1:1 until patient is calmer.
--- NOTE | 2024-05-28 11:57 | CTR_ITS ---
PROCEDURE INFORMATION: Exam: CT Head Without Contrast Exam date and time: 05/28/2024 3:17 PM Age: 44 years old Clinical indication: Injury or trauma; Pain; neuro changes secondary to patient hitting her head TECHNIQUE: Imaging protocol: Computed tomography of the head without contrast. Radiation optimization: All CT scans at this facility use at least one of these dose optimization techniques: automated exposure control; mA and/or kV adjustment per patient size (includes targeted exams where dose is matched to clinical indication); or iterative reconstruction. COMPARISON: CT head wo con* [id number] 05/23/2024 11:12 PM RADIATION DOSE METRICS: Total DLP (mGy-cm): 678 FINDINGS: Brain: There is mild diffuse heterogeneity of the white matter attenuation, consistent with chronic white matter ischemic changes. No evidence for large acute ischemic infarction. Please note acute ischemia can be occult by head CT. No evidence for acute intracranial hemorrhage. Cerebral ventricles: No ventriculomegaly. Paranasal sinuses: Visualized sinuses are unremarkable. No fluid levels. Mastoid air cells: Visualized mastoid air cells are well aerated. Bones: Unremarkable. No acute fracture. Soft tissues: Unremarkable. Vasculature: Calcified plaque is present within the carotid siphons. CT/CT head wo con* [id number] IMPRESSION: No acute findings.Non acute findings as described above.
[2024-05-28 12:03] LABS: Glucose Point of Care 150 mg/dL (70-110)
--- NOTE | 2024-05-28 12:14 | PM.PN ---
Subjective Subjective: Seen today. Patient multiple times hit her head and her stumps to her head. She has been very combative and for people have had to restrain her in the Neuropsych Unit. She complains of pain all over her body and does not pinpoint to one location however when examined she stated her T11-T12 area was hurting. CT thoracic spine done 3 days ago did not show any acute pathology. Discussed with patient regarding doing an MRI today. She was screaming and stating I do not know if I can stay still and I am in a lot of pain that I do not want to live anymore. Had a long discussion with nursing informatics specialist and Dr. Martinez today. Overnight patient complained of pain. Vitals/I&O/Wt Last Vital Signs Temp 98.1 F 05/27/24 19:48 Pulse 94 05/28/24 08:10 Resp 22 H 05/28/24 08:47 BP 198/97 05/28/24 08:10 Pulse Ox 98 05/28/24 08:47 O2 Del Method Room Air 05/28/24 08:10 O2 Flow Rate 2 05/23/24 23:49 Weight last 48 hrs Weight 64.5 kg Weight 64.5 kg Physical Exam Narrative: General: Alert oriented x 3. HEENT: PERRLA, pupils bilaterally equal and reactive, pallors not present Chest: Normal vesicular breath sounds, no added sounds, equal good air entry bilaterally CVS: S1-S2 regular, no murmurs, no tachycardia, no gallops, no rubs Abdomen: Soft, nontender, bowel sounds present Neuro: No focal deficits grossly Data 05/25/24 05:23 05/27/24 04:27 A&P Assessment and plan (1) Suicidal ideation: (2) Infection of amputation stump: (3) Combative behavior: (4) Delirium: (5) Transient apnea: Plan 44 year old lady with lonstanding psychiatric history of depression, PTSD, history of self harming behaviors, history of recent left BKA stump cellulitis status post I&D on May 17 and following up with wound care. Currently presents to the hospital with chief complaints of being combative, showing suicidal ideation and combative behavior. She was hitting several hospital staff. Unable to tell exact details. She is currently received Geodon, received Haldol, ketamine in the emergency room. She had transient apnea as a result of sedation which required bag mask ventilation. Currently she is saturating 100% on room air. Patient is much more awake now, able to protect her airway. She is saturating 100% on room air. She is able to answer basic orientation questions, however does not have an extended conversation due to somnolence. Plan: Admit to the ICU as patient would likely require Precedex infusion once current sedation starts to wean off. Additionally would monitor her respiratory status closely given her recent apneic episode. Currently blood pressure 211/110 upon initial assessment. Down to 150/86 without any directed interventions. Likely related to acute stress. Will continue home dose of antihypertensives including amlodipine. As needed hydralazine added for SBP greater than 180. 96-hour hold initiated in the emergency room Psychiatry service consulted from the ER Possible that her acute delirium may be related to opiate withdrawal. Possibility of serotonin release syndrome on the differential given hypertension and mental status changes, though patient unable to tell me if she was taking recently prescribed Paxil alongside linezolid. As needed Ativan 2 mg IV every 6 hours as needed Recent wound cultures from I&D showing MSSA. Will initiate treatment with cefazolin 2 g IV every 8 hours for the same. Check blood cultures given acute delirium. CT head without acute intracranial abnormality Patient reports being a type I diabetic, however states that she has been off insulin for over 1 year. States that she does not need it . She may be referring to being a type II diabetic instead of type I diabetic. Check HbA1c. I do not see any insulin on her home medication list which would go against her being a type I diabetic. DVT prophylaxis: Lovenox 40 mg daily Full code 05/28 -Patient has hit her head multiple times in the ball and on the bed. She has been very combative and agitated. Hide required for personnel to hold patient down. Discussed with her regarding MRI and we will attempt that today. Stump also bleeding. Patient pulled off her dressing earlier. Wound care was provided. ? Order MRI thoracic and lumbar spine with contrast. Blood cultures have been negative. ? Check CT head as patient now complaining of nausea as well. ? Will transfer to ICU to placed on Precedex drip. ? Will order Ativan for MRI procedure. ? Continue cefuroxime at this time twice daily. Patient to discharge on that for another 2 weeks. ? Continue OxyContin 10 twice daily, oxycodone/acetaminophen every 4 hours as needed. ? Psychiatric consult appreciated. Patient has suicidal ideation. ? MSSA and wound culture. Will follow-up with ID and wound care as an outpatient. Full code Attestations Medical Necessity Statement*: On 96-hour hold Diagnoses Suicidal ideation R45.851 Infection of amputation stump T87.40 Combative behavior R46.89 Delirium R41.0 Transient apnea R06.81
--- NOTE | 2024-05-28 12:22 | PC.NURSE ---
During report, this nurse was notified by staff that patient was harming her self. On arrival to patient's room, patient's hands were being held so to prevent patient from punching herself in the head. This nurse notified that patient had banged her head into the corner of the door frame. Patient was seen thrashing around on the floor, attempting to free her hands so she can inflict harm upon herself. This nurse quickly assessed the sitter, Antonella, and GILDA Whitehead by placing hand on forehead to keep patient from hitting the hard floor with her bare head. Dr. Martinez made aware of situation. it was decided to restrain patient in the restraint bed to keep patient safe. Patient placed in restraints at 0755. Quickly thereafter, patient's VS obtained. Patient's BP elevated. Blood pressure 197/103. Dr. Martinez notified. Patient did not appear to be in any distress. patient resting in restraint bed, two finger widths distance between patient and polyurethane restraints. Patient's lower extremities manually held down intermittently as patient attempted to kick her head with her extremities; patient is bilateral AKA. Patient removed from restraints at 1035.
--- NOTE | 2024-05-28 12:23 | MR_ITS ---
WS: [id number] MRI LUMBAR SPINE NONCONTRAST TECHNIQUE: Sagittal T1, T2 and STIR imaging. Axial T1 and T2 imaging. CLINICAL INFORMATION: worsening pain COMPARISON: None. FINDINGS: Mild lumbar curve. No acute compression. No high-grade central canal stenosis. Slight chronic yenni kostas superior endplate T12 with endplate Schmorl's node. This is unchanged since 2021. L1-L2: Mild facet arthropathy. Spinal canal and foramen are patent. L2-L3: No significant disc bulging. Mild facet arthropathy. Spinal canal and foramen are patent. L3-L4: Mild annular bulging. Mild facet arthropathy. Mild LEFT foraminal narrowing. L4-L5: Mild annular bulging. Slight narrowing subarticular recess bilaterally. Mild facet arthropathy . Foramen are patent. L5-S1: Mild annular bulging. Slight narrowing RIGHT subarticular recess. Spinal canal and foramen are patent. Mild facet arthropathy. Visualized pelvic bony structures: Normal. Paravertebral soft tissues: Normal. Small LEFT renal cyst MR/MR lumbar spine wo con* [id number] IMPRESSION: 1. Mild lumbar curve. No acute compression. 2. No high-grade central canal stenosis. 3. Mild annular bulging L4-L5 and L5-S1 with slight narrowing of the subarticu lar recess. 4. Mild LEFT L3-4 foraminal narrowing.
--- NOTE | 2024-05-28 12:23 | PC.OT ---
OT EVALUATION HELD THIS DATE DUE TO PATIENT SLEEPING. LATER IN MORNING TAKEN ON RESTRAINT TABLE TO SOUTH SIDE OF UNIT. WILL ATTEMPT EVALUATION WHEN ABLE TO ACTIVELY PARTICIPATE
[2024-05-28] MEDS: dexmedeTOMIDine 0.9 % NaCL 400 MCG/100 ML PREMIX IV (13:21)
--- NOTE | 2024-05-28 13:23 | PC.NURSE ---
1:1 sitter called out for help from patient's room. GILDA and this RN arrived to the patient's room to see her bashing her head into the floor. She also started hitting herself in the head with both fists. Patient could not be verbally redirected and staff had to manually restrain her per SAFE protocol. A second RN arrived to help restrain patient, as the patient had managed to remove her dressing covering her below the knee amputation that was ordered to be wet to dry. Once physically restrained this RN attempted to change the patient's dressing, but she refused and would not allow staff to place anything on it. It was explained to her that we needed to place the dressing on it to prevent it from getting infected and to help it heal. However, she refused again and continued to strain and fight against staff. Wound was unable to be dressed properly and it was decided that utilizing a hunter and tape to secure/cover the wound would be the best for the time being. Dr. Dahl and Dr. Martinez were both notified. Patient began yelling, let me go! Let me go! I wanna kill myself! while attempting to get out of the manual holds to harm herself again. After manually restraining the patient for quite some time Dr. Martinez ordered the patient to be put in the restraint bed at approximately 1120. Both wrists were placed in restraints, with bilateral knees and thighs manually held by staff due to both lower legs being amputated with no ability to secure them to the bed otherwise. Orders were given by Dr. Dahl to transfer patient to ICU bed 5 via restraint bed. Patient transferring with 1:1 sitter by bedside. Patient to receive head scan to make sure she did not cause any internal damage when she struck her head on the ground. yard supervisor cotton gin, Kate, was also contacted and was present for the bed restraint. JAYA Pardo, was contacted as well.
--- NOTE | 2024-05-28 13:35 | PC.NURSE ---
1245 to ICU via bed. Patient is removed from all restraints, placed on monitor, IV established, and placed on precedex drip.
[2024-05-28] MEDS: ondansetron 2 mg/ML SDV 2 mL 4 MG IVP (13:44)
[2024-05-28] MEDS: metoclopramide 5 mg/mL SDV 2 mL 10 MG IVP ×3 (14:33→15:32)
[2024-05-28] MEDS: midazolam 1 mg/mL INJ 2 mL 2 MG IVP ×2 (14:49→15:36)
--- NOTE | 2024-05-28 14:50 | PC.NURSE ---
Addendum entered by Branden Evangelista RN 05/29/24 11:39: There was no order from from Dr. Villa or Dr. Dahl to give Ketamine. Ketamine was discussed as a potential medication to give due to being given in the ER and having good effect. Ketamine was only discussed. Dr. Villa called to assess patient due to multiple ineffective medications being already given. Dr. Villa to bedside and gives verbal order for Versed IVP. Patient given 1x dose of 2 mg IVP Versed. Patient is monitored 1:1 by this nurse for duration of shift 05/28/24. Addendum entered by Branden Evangelista RN 05/29/24 10:00: There was no order to give ketamine. Dr. Dahl discussed over the phone with this nurse and Ketamine was a potential plan for this patient. Patient was given IM Ativan with no effect. Dr. Villa is at bedside and orders to give IVP Versed due to severe agitation. Original Note: Agitation Patient again agitated and trying to get out of bed. Dr. Dahl called for orders. Current plan is to give IV Ketamine. Nurse called Dr. Villa to push IV Ketamine, but anesthesia request to try IVP Versed first. Versed given with good effect. oral airway at bedside.
--- NOTE | 2024-05-28 17:18 | MR_ITS ---
WS: [id number] MRI THORACIC SPINE WITHOUT CONTRAST TECHNIQUE: Sagittal T1, T2 and STIR imaging. Axial T2 imaging. Noncontrast imaging obtained. CLINICAL INFORMATION: BACK PAIN COMPARISON: None. FINDINGS: Mild thoracic curve. Mild thoracic kyphosis. No acute compression fractures. Mild chronic compression superior endplate T12 with endplate Schmorl's node. Cord signal is normal. Mild facet arthropathy lo wer thoracic spine. Mild annular bulging T7-T8. Normal paravertebral soft tissues. Adrenal glands are normal. Small esophageal hernia. Normal caliber thoracic aorta. Prior postoperative changes cervical spine and with interbody fusion C5-6. Osteophytic ridging at thi s level eccentric to the RIGHT with mild to moderate central canal stenosis. This could be followed u p with cervical spine MRI. Mild central canal stenosis C3-C4 due to disc osteophyte complex. Small ce ntral protrusion C6-7. MR/MR thoracic spin wo con* [id number] IMPRESSION: 1. No acute thoracic spine findings. 2. Mild to moderate central canal stenosis in the cervical spine described abo ve. This can be followed up with cervical spine MRI.
[2024-05-28 18:26] LABS: Glucose Point of Care 132 mg/dL (70-110)
[2024-05-28] MEDS: ropinirole 1 mg Tablet PO (20:27)
[2024-05-28 21:07] LABS: Glucose Point of Care 116 mg/dL (70-110)
[2024-05-28] MEDS: dexmedeTOMIDine 0.9 % NaCL 400 MCG/100 ML PREMIX 6.45 MCG IV (23:35)
[2024-05-29] VITALS (53 sets, daily range): BP systolic 90–159; BP diastolic 53–89; PULSE 60–92; RESP 11–27; TEMP 36.8–37.4; O2SAT 86–100
[2024-05-29] MEDS: oxyCODONE-APAP 5-325 mg Tablet 1 TAB PO ×5 (03:07→23:22)
[2024-05-29 05:06] LABS: Basophils % 0.6 %; Eosinophils # 0.1 10^3/uL (0.0-0.8); Eosinophils % 1.6 %; Hematocrit 25.8 % (36-47); Lymphocytes # 1.9 10^3/uL (0.8-4.8); Lymphocytes % 26.9 %; Mean Corpuscular HGB Conc 31.4 g/dL (30-55); Mean Corpuscular Hemoglobin 29.8 pg (27-33); Mean Corpuscular Volume 94.9 fl (85-98); Mean Platelet Volume 8.8 fL (7.4-10.4); Monocytes # 0.4 10^3/uL (0.2-0.9); Monocytes % 5.7 %; Neutrophils # 4.54 10^3/uL (1.8-7.7); Neutrophils % 64.9 %; Nucleated Red Blood Cells % 0 %; Platelet Count 387 10^3/cmm (157-399); Red Blood Count 2.72 10^6/uL (3.85-5.65); Red Cell Distribution Width 13.1 % (12.1-15.1); White Blood Count 6.99 10^3/uL (3.29-11.43)
[2024-05-29 05:24] LABS: Anion Gap 13.7 (5-19); Blood Urea Nitrogen 23 mg/dL (6-20); Calcium 8.8 mg/dL (8.5-10.5); Carbon Dioxide 26 mmol/L (22-29); Chloride 102 mmol/L (98-107); Creatinine Clr Calc Pharmacy 42.1042; Glomerular Filtration Rate 32.4 mL/min (90-130); Glucose 84 mg/dL (65-115); Osmolality Calculated 287 mOsm/kg (285-295); Potassium 4.7 mmol/L (3.5-5.1); Sodium 137 mmol/L (136-145)
[2024-05-29] MEDS: oxyCODONE 10 mg ER (12 HR) Tablet PO ×2 (08:01→18:15)
[2024-05-29] MEDS: pregabalin 25 mg Capsule 50 MG PO ×2 (08:01→18:15)
[2024-05-29] MEDS: PARoxetine 20 mg Tablet PO (08:01)
[2024-05-29] MEDS: cyclobenzaprine 10 mg Tablet 5 MG PO ×3 (08:02→20:43)
[2024-05-29] MEDS: amlodipine 5 mg Tablet PO (08:02)
[2024-05-29] MEDS: pantoprazole DR 40 mg Tablet PO (08:02)
[2024-05-29] MEDS: cefUROXime 250 mg Tablet 500 MG PO ×2 (08:02→18:16)
[2024-05-29 08:56] LABS: Glucose Point of Care 94 mg/dL (70-110)
--- NOTE | 2024-05-29 12:16 | W.PM.NPUPNS ---
Subjective NPU Subjective: Patient presented today reporting that she is doing okay. We discussed the 21-day hold paperwork being submitted and that her hearing is today. We discussed working with the medical team to determine what is going on with pain management and trying to identify the safest reality for getting her home. We discussed the children in the home and making sure that they are safe. We discussed increasing her Paxil including the risks, benefits and alternatives and she understood and agreed to proceed as is documented in this note. She denied any side effects of the medication but continued to report that she has moments during the day where her pain is not well-managed. Mental Status Exam MSE Comments: This is an overweight white female in hospital scrubs with limited grooming and eye contact.? With notable below-knee amputation bilaterally. No abnormal movements except for extreme psychomotor agitation with screaming and attempting to bang her head.? Mostly uncooperative with exam in extreme distress.? Speech was increased rate and volume.? Mood described as an pain, affect angry and irritable.? Thought process linear.? Thought content: Patient endorsed suicidal but denied homicidal ideation, there were no delusions reported or noted, she denied auditory or visual hallucinations.? Attention and concentration were limited and memory appeared mostly unreliable but none were formally tested.? She is alert and oriented x3.? Insight, judgment and impulse control are all impaired. Vitals/I&O/Wt Last Vital Signs Temp 98.3 F 05/29/24 20:00 Pulse 73 05/29/24 20:00 Resp 19 05/29/24 20:00 BP 140/77 05/29/24 20:00 Pulse Ox 99 05/29/24 20:00 O2 Del Method Room Air 05/29/24 04:30 O2 Flow Rate 2 05/23/24 23:49 Weight last 48 hrs Weight 64.5 kg Data NPU 05/30/24 04:26 05/30/24 04:26 Micro: Microbiology 05/24/24 11:07 Blood Culture - Final Blood NO GROWTH AFTER 5 DAYS Microbiology 05/24/24 11:07 Blood Blood Culture - Final NO GROWTH AFTER 5 DAYS A&P Assessment and plan (1) Anemia of chronic disease: (2) Suicide ideation: (3) Acute flank pain: (4) Depression: Qualifiers: Depression Type: unspecified Qualified Code(s): F32.9 - Major depressive disorder, single episode, unspecified (5) Below-knee amputation of left lower extremity: (6) ALEJANDRO (generalized anxiety disorder): (7) Diabetic ophthalmopathy: (8) Diabetic gastroparesis: (9) Insomnia: Qualifiers: Insomnia type: due to medical condition Qualified Code(s): G47.01 - Insomnia due to medical condition (10) Diabetes mellitus type 1: Qualifiers: Diabetes mellitus complication status: with hyperglycemia Qualified Code(s): E10.65 - Type 1 diabetes mellitus with hyperglycemia (11) GERD (gastroesophageal reflux disease): Qualifiers: Esophagitis presence: without esophagitis Qualified Code(s): K21.9 - Gastro-esophageal reflux disease without esophagitis (12) Amputation of toe of right foot: (13) Suicidal ideation: (14) Combative behavior: (15) Suicide attempt: (16) History of financial difficulties: (17) Infection of amputation stump: (18) Pain of amputation stump of left lower extremity: (19) Low back pain: Plan This is a 44-year-old female with significant past psychiatric and addiction issues with frequent suicidal ideation secondary to her medical comorbidities presents again with suicidality which is connected to reported pain syndrome now with bilateral BKA. Plan: 1.? Continue current medication.? Increase Paxil to 40 mg p.o. daily 2.? Initiated 21-day hold paperwork. 21-day hold granted 3.? Obtain collateral information. 4.? Transferred to ICU. 5.? Continue one-to-one. 6. Have ethics meeting Involuntary Hold Information 96 Hour Hold: 96 Hour Involuntary Admission: No 96 Hour Hold Ending Date: 05/29/24 96 Hour Hold Ending Time: 00:01 Attestations NPU Medical Necessity Statement*: Inpatient hospitalization is medically necessary and the clinically appropriate intervention at this time. We will initiate medications and make changes as indicated. Likely length of stay 3-5 days Coding Level of Care Code Acute Code for [facility] Fwd Diagnoses Anemia of chronic disease D63.8 Suicide ideation R45.851 Acute flank pain R10.9 Depression, unspecified depression type F32.9 Depression Type: unspecified Below-knee amputation of left lower extremity S88.112A ALEJANDRO (generalized anxiety disorder) F41.1 Diabetic ophthalmopathy E11.39 Diabetic gastroparesis E11.43; K31.84 Insomnia due to medical condition G47.01 Insomnia type: due to medical condition Type 1 diabetes mellitus with hyperglycemia E10.65 Diabetes mellitus complication status: with hyperglycemia Gastroesophageal reflux disease without esophagitis K21.9 Esophagitis presence: without esophagitis Amputation of toe of right foot S98.131A Combative behavior R46.89 Suicide attempt T14.91XA History of financial difficulties Z87.898 Infection of amputation stump T87.40 Pain of amputation stump of left lower extremity T87.89; M79.605 Low back pain M54.5
[2024-05-29 13:14] LABS: Glucose Point of Care 154 mg/dL (70-110)
[2024-05-29] MEDS: insulin lispro 100 unit/1 mL SUBCUT ×2 (13:14→18:20)
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
--- NOTE | 2024-05-29 15:27 | PC.NURSE ---
[facility] was contacted to complete a well being check on the small grandkids that she has told Dr. Martinez she cares for. Information was given to dispatch to perform
[2024-05-29] MEDS: dexmedeTOMIDine 0.9 % NaCL 400 MCG/100 ML PREMIX 6.45 MCG IV (16:45)
[2024-05-29 18:25] LABS: Glucose Point of Care 182 mg/dL (70-110)
--- NOTE | 2024-05-29 19:00 | PC.NURSE ---
Patient reports has hx of being legally blind, states can only see shadows. Has not driven in years due to this.
[2024-05-29] MEDS: ropinirole 1 mg Tablet PO (20:42)
[2024-05-29] MEDS: hyDROXYzine 25 mg Capsule 50 MG PO (20:42)
[2024-05-29 21:00] LABS: Glucose Point of Care 90 mg/dL (70-110)
[2024-05-30] VITALS (25 sets, daily range): BP systolic 112–155; BP diastolic 60–83; PULSE 52–83; RESP 10–24; TEMP 37.4; O2SAT 86–100
[2024-05-30] MEDS: oxyCODONE-APAP 5-325 mg Tablet 1 TAB PO ×3 (03:48→11:15)
[2024-05-30 05:18] LABS: Basophils # 0.1 10^3/uL (0.0-0.1); Eosinophils # 0.1 10^3/uL (0.0-0.8); Eosinophils % 2.7 %; Hematocrit 27.6 % (36-47); Lymphocytes # 1.8 10^3/uL (0.8-4.8); Lymphocytes % 36.3 %; Mean Corpuscular HGB Conc 29.3 g/dL (30-55); Mean Corpuscular Volume 102.2 fl (85-98); Mean Platelet Volume 9.3 fL (7.4-10.4); Monocytes # 0.3 10^3/uL (0.2-0.9); Monocytes % 5.7 %; Neutrophils # 2.63 10^3/uL (1.8-7.7); Neutrophils % 53.9 %; Nucleated Red Blood Cells % 0 %; Platelet Count 181 10^3/cmm (157-399); Red Cell Distribution Width 12.9 % (12.1-15.1); White Blood Count 4.88 10^3/uL (3.29-11.43)
[2024-05-30 05:43] LABS: Anion Gap 12.2 (5-19); Blood Urea Nitrogen 23 mg/dL (6-20); Calcium 8.3 mg/dL (8.5-10.5); Carbon Dioxide 24 mmol/L (22-29); Chloride 104 mmol/L (98-107); Creatinine Clr Calc Pharmacy 42.1042; Glomerular Filtration Rate 32.4 mL/min (90-130); Glucose 148 mg/dL (65-115); Magnesium 1.8 mg/dL (1.7-2.3); Osmolality Calculated 288 mOsm/kg (285-295); Potassium 4.2 mmol/L (3.5-5.1); Sodium 136 mmol/L (136-145)
[2024-05-30] MEDS: dexmedeTOMIDine 0.9 % NaCL 400 MCG/100 ML PREMIX IV (06:10)
--- NOTE | 2024-05-30 07:05 | W.PM.NPUPNS ---
Subjective NPU Subjective: Patient presented today reporting that she is doing okay. She reports that being her behavior has been a little better and that her pain is a little better controlled. She denied any new problems and we discussed possibility of discharge early next week. Mental Status Exam MSE Comments: This is an overweight white female in hospital scrubs with limited grooming and eye contact.? With notable below-knee amputation bilaterally. No abnormal movements except for mild psychomotor retardation.? Mostly cooperative with exam in mild distress.? Speech was slightly decreased rate and volume.? Mood described as a little better, affect congruent.? Thought process linear.? Thought content: Patient denied current suicidal or homicidal ideation, there were no delusions reported or noted, she denied auditory or visual hallucinations.? Attention and concentration were improving and memory appeared mostly unreliable but none were formally tested.? She is alert and oriented x3.? Insight, judgment and impulse control are all limited. Vitals/I&O/Wt Last Vital Signs Temp 98.3 F 05/29/24 20:00 Pulse 52 L 05/30/24 06:00 Resp 13 05/30/24 06:00 BP 116/70 05/30/24 06:00 Pulse Ox 97 05/30/24 06:00 O2 Del Method Room Air 05/29/24 04:30 O2 Flow Rate 2 05/23/24 23:49 Weight last 48 hrs Weight 70 kg Data NPU 05/30/24 04:26 05/30/24 04:26 Micro: Microbiology 05/24/24 11:07 Blood Culture - Final Blood NO GROWTH AFTER 5 DAYS Microbiology 05/24/24 11:07 Blood Blood Culture - Final NO GROWTH AFTER 5 DAYS A&P Assessment and plan (1) Anemia of chronic disease: (2) Suicide ideation: (3) Acute flank pain: (4) Depression: Qualifiers: Depression Type: unspecified Qualified Code(s): F32.9 - Major depressive disorder, single episode, unspecified (5) Below-knee amputation of left lower extremity: (6) ALEJANDRO (generalized anxiety disorder): (7) Diabetic ophthalmopathy: (8) Diabetic gastroparesis: (9) Insomnia: Qualifiers: Insomnia type: due to medical condition Qualified Code(s): G47.01 - Insomnia due to medical condition (10) Diabetes mellitus type 1: Qualifiers: Diabetes mellitus complication status: with hyperglycemia Qualified Code(s): E10.65 - Type 1 diabetes mellitus with hyperglycemia (11) GERD (gastroesophageal reflux disease): Qualifiers: Esophagitis presence: without esophagitis Qualified Code(s): K21.9 - Gastro-esophageal reflux disease without esophagitis (12) Amputation of toe of right foot: (13) Suicidal ideation: (14) Combative behavior: (15) Suicide attempt: (16) History of financial difficulties: (17) Infection of amputation stump: (18) Pain of amputation stump of left lower extremity: (19) Low back pain: Plan This is a 44-year-old female with significant past psychiatric and addiction issues with frequent suicidal ideation secondary to her medical comorbidities presents again with suicidality which is connected to reported pain syndrome now with bilateral BKA. Plan: 1.? Continue current medication.? Increase Paxil to 40 mg p.o. daily 2.? Initiated 21-day hold paperwork. 21-day hold granted 3.? Obtain collateral information. 4.? Transferred to ICU. 5.? Continue one-to-one. 6. Have ethics meeting Involuntary Hold Information 96 Hour Hold: 96 Hour Involuntary Admission: No 96 Hour Hold Ending Date: 05/29/24 96 Hour Hold Ending Time: 00:01 Attestations NPU Medical Necessity Statement*: Inpatient hospitalization is medically necessary and the clinically appropriate intervention at this time. We will initiate medications and make changes as indicated. Likely length of stay 2-4 days Coding Level of Care Code Acute Code for Chg Fwd Diagnoses Anemia of chronic disease D63.8 Suicide ideation R45.851 Acute flank pain R10.9 Depression, unspecified depression type F32.9 Depression Type: unspecified Below-knee amputation of left lower extremity S88.112A ALEJANDRO (generalized anxiety disorder) F41.1 Diabetic ophthalmopathy E11.39 Diabetic gastroparesis E11.43; K31.84 Insomnia due to medical condition G47.01 Insomnia type: due to medical condition Type 1 diabetes mellitus with hyperglycemia E10.65 Diabetes mellitus complication status: with hyperglycemia Gastroesophageal reflux disease without esophagitis K21.9 Esophagitis presence: without esophagitis Amputation of toe of right foot S98.131A Combative behavior R46.89 Suicide attempt T14.91XA History of financial difficulties Z87.898 Infection of amputation stump T87.40 Pain of amputation stump of left lower extremity T87.89; M79.605 Low back pain M54.5
[2024-05-30 07:20] LABS: Glucose Point of Care 127 mg/dL (70-110)
[2024-05-30] MEDS: PARoxetine 20 mg Tablet 40 MG PO (08:58)
[2024-05-30] MEDS: cyclobenzaprine 10 mg Tablet 5 MG PO (08:58)
[2024-05-30] MEDS: cefUROXime 250 mg Tablet 500 MG PO ×2 (08:59→17:36)
[2024-05-30] MEDS: oxyCODONE 10 mg ER (12 HR) Tablet PO ×2 (08:59→17:36)
[2024-05-30] MEDS: amlodipine 5 mg Tablet PO (08:59)
[2024-05-30] MEDS: pantoprazole DR 40 mg Tablet PO (08:59)
[2024-05-30] MEDS: pregabalin 25 mg Capsule 50 MG PO ×2 (08:59→17:36)
[2024-05-30 11:21] LABS: Glucose Point of Care 156 mg/dL (70-110)
[2024-05-30] MEDS: insulin lispro 100 unit/1 mL SUBCUT ×2 (11:55→20:32)
--- NOTE | 2024-05-30 13:35 | PC.NURSE ---
Wound dressing changed on lower left extremity. 4x4 used, betadine, coband and stock net. yellow drainage noted. Pt tolerated well.
[2024-05-30] MEDS: cyclobenzaprine 10 mg Tablet 7.5 MG PO ×2 (14:31→20:32)
--- NOTE | 2024-05-30 14:57 | PC.NURSE ---
weaned off precedex and tslo brace now on pt
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
[2024-05-30] MEDS: oxyCODONE-APAP 5-325 mg Tablet 1.5 TAB PO ×2 (15:42→20:33)
[2024-05-30 17:29] LABS: Glucose Point of Care 111 mg/dL (70-110)
[2024-05-30 20:29] LABS: Glucose Point of Care 146 mg/dL (70-110)
[2024-05-30] MEDS: trazodone 50 mg Tablet PO (20:33)
[2024-05-30] MEDS: ropinirole 1 mg Tablet PO (20:33)
[2024-05-31] VITALS (22 sets, daily range): BP systolic 117–163; BP diastolic 66–102; PULSE 76–90; RESP 10–26; TEMP 37.2–37.4; O2SAT 99
[2024-05-31] MEDS: oxyCODONE-APAP 5-325 mg Tablet 1.5 TAB PO ×6 (00:32→20:10)
[2024-05-31 07:38] LABS: Glucose Point of Care 103 mg/dL (70-110)
[2024-05-31] MEDS: cefUROXime 250 mg Tablet 500 MG PO ×2 (08:31→17:31)
[2024-05-31] MEDS: amlodipine 5 mg Tablet PO (08:31)
[2024-05-31] MEDS: cyclobenzaprine 10 mg Tablet 7.5 MG PO ×3 (08:32→20:10)
[2024-05-31] MEDS: pantoprazole DR 40 mg Tablet PO (08:32)
[2024-05-31] MEDS: pregabalin 25 mg Capsule 50 MG PO ×2 (08:32→17:32)
[2024-05-31] MEDS: PARoxetine 20 mg Tablet 40 MG PO (08:34)
[2024-05-31] MEDS: oxyCODONE 10 mg ER (12 HR) Tablet PO ×2 (08:40→17:31)
[2024-05-31 11:31] LABS: Glucose Point of Care 108 mg/dL (70-110)
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
[2024-05-31] MEDS: hyDROXYzine 25 mg Capsule 50 MG PO ×2 (14:09→20:10)
[2024-05-31 17:15] LABS: Glucose Point of Care 105 mg/dL (70-110)
[2024-05-31 20:00] LABS: Glucose Point of Care 120 mg/dL (70-110)
[2024-05-31] MEDS: trazodone 50 mg Tablet PO (20:09)
[2024-05-31] MEDS: ropinirole 1 mg Tablet PO (20:09)
--- NOTE | 2024-05-31 20:23 | P.NPUPN_ITS ---
Subjective NPU 2 Subjective: Patient presented today reporting that she is doing better. She has been doing better per staff reports and direct observation. She reports that the back brace has been helpful though she had just taken it off because she was getting a bit sweaty. She identified that her pain management was better and we discussed the treatment team meeting in the morning to discuss a possible discharge at the beginning of the week but needing to make sure we have clear understanding of who has been to manage things moving forward. She reports there has been some contact with her PCP but we discussed the fact that we are talking primarily about pain management moving forward. She denied any side effects to the medications. Mental Status Exam 2 MSE Comments: This is an overweight white female in hospital scrubs with limited grooming and eye contact.? With notable below-knee amputation bilaterally. No abnormal movements except for mild psychomotor retardation.? Mostly cooperative with exam in mild distress.? Speech was slightly decreased rate and volume.? Mood described as a better, affect congruent.? Thought process linear.? Thought content: Patient denied current suicidal or homicidal ideation, there were no delusions reported or noted, she denied auditory or visual hallucinations.? Attention and concentration were improving and memory appeared more reliable but none were formally tested.? She is alert and oriented x3.? Insight and judgment are improving and impulse control is limited. Vitals/I&O/Wt Last Vital Signs Temp 99.3 F 05/31/24 20:00 Pulse 88 05/31/24 20:00 Resp 19 H 05/31/24 20:00 BP 124/102 05/31/24 20:00 Pulse Ox 99 05/31/24 20:00 O2 Del Method Room Air 05/31/24 20:00 O2 Flow Rate 2 05/23/24 23:49 05/31/24 22:59 Intake Total 300 / 1050 Balance 300 / 1050 Weight last 48 hrs Weight 70 kg Data NPU 05/30/24 04:26 05/30/24 04:26 A&P Assessment and plan (1) Anemia of chronic disease: (2) Suicide ideation: (3) Acute flank pain: (4) Depression: Qualifiers: Depression Type: unspecified Qualified Code(s): F32.9 - Major depressive disorder, single episode, unspecified (5) Below-knee amputation of left lower extremity: (6) ALEJANDRO (generalized anxiety disorder): (7) Diabetic ophthalmopathy: (8) Diabetic gastroparesis: (9) Insomnia: Qualifiers: Insomnia type: due to medical condition Qualified Code(s): G47.01 - Insomnia due to medical condition (10) Diabetes mellitus type 1: Qualifiers: Diabetes mellitus complication status: with hyperglycemia Qualified Code(s): E10.65 - Type 1 diabetes mellitus with hyperglycemia (11) GERD (gastroesophageal reflux disease): Qualifiers: Esophagitis presence: without esophagitis Qualified Code(s): K21.9 - Gastro-esophageal reflux disease without esophagitis (12) Amputation of toe of right foot: (13) Suicidal ideation: (14) Combative behavior: (15) Suicide attempt: (16) History of financial difficulties: (17) Infection of amputation stump: (18) Pain of amputation stump of left lower extremity: (19) Low back pain: Plan This is a 44-year-old female with significant past psychiatric and addiction issues with frequent suicidal ideation secondary to her medical comorbidities presents again with suicidality which is connected to reported pain syndrome now with bilateral BKA. Plan: 1.? Continue current medication.? Increased Paxil to 40 mg p.o. daily 2.? Initiated 21-day hold paperwork. 21-day hold granted 3.? Obtain collateral information. 4.? Transferred to ICU. 5.? Continue one-to-one. 6. Had ethics meeting and we will reconvene with primary team on possible discharge in the beginning of the week Involuntary Hold Information 2 96 Hour Hold: 96 Hour Involuntary Admission: No 96 Hour Hold Ending Date: 96 Hour Hold Ending Time: 00:01 Attestations NPU 2 Medical Necessity Statement*: Inpatient hospitalization is medically necessary and the clinically appropriate intervention at this time. We will initiate medications and make changes as indicated. Likely length of stay 2-4 days Coding Level of Care Code Acute Code for [facility] Fwd Diagnoses Anemia of chronic disease D63.8 Suicide ideation R45.851 Acute flank pain R10.9 Depression, unspecified depression type F32.9 Depression Type: unspecified Below-knee amputation of left lower extremity S88.112A ALEJANDRO (generalized anxiety disorder) F41.1 Diabetic ophthalmopathy E11.39 Diabetic gastroparesis E11.43; K31.84 Insomnia due to medical condition G47.01 Insomnia type: due to medical condition Type 1 diabetes mellitus with hyperglycemia E10.65 Diabetes mellitus complication status: with hyperglycemia Gastroesophageal reflux disease without esophagitis K21.9 Esophagitis presence: without esophagitis Amputation of toe of right foot S98.131A Combative behavior R46.89 Suicide attempt T14.91XA History of financial difficulties Z87.898 Infection of amputation stump T87.40 Pain of amputation stump of left lower extremity T87.89; M79.605 Low back pain M54.5
[2024-06-01] VITALS (17 sets, daily range): BP systolic 112–229; BP diastolic 67–118; PULSE 77–124; RESP 13–23; TEMP 36.8–37.4; O2SAT 97–100
[2024-06-01] MEDS: oxyCODONE-APAP 5-325 mg Tablet 1.5 TAB PO ×4 (01:29→19:09)
[2024-06-01] MEDS: ondansetron 2 mg/ML SDV 2 mL 4 MG IVP (05:07)
[2024-06-01] MEDS: metoclopramide 5 mg/mL SDV 2 mL 10 MG IVP (06:15)
[2024-06-01] MEDS: hyDROXYzine 25 mg Capsule 50 MG PO (06:15)
[2024-06-01] MEDS: ibuprofen 600 mg Tablet PO (07:15)
[2024-06-01] MEDS: OLANZapine 5 mg ODT PO (07:15)
[2024-06-01] MEDS: PARoxetine 20 mg Tablet 40 MG PO (07:51)
[2024-06-01] MEDS: pregabalin 25 mg Capsule 50 MG PO ×2 (07:52→17:54)
[2024-06-01] MEDS: amlodipine 5 mg Tablet PO (07:52)
[2024-06-01] MEDS: cyclobenzaprine 10 mg Tablet 7.5 MG PO (07:52)
[2024-06-01] MEDS: oxyCODONE 10 mg ER (12 HR) Tablet PO ×2 (07:53→17:54)
[2024-06-01] MEDS: pantoprazole DR 40 mg Tablet PO (07:53)
[2024-06-01] MEDS: cefUROXime 250 mg Tablet 500 MG PO ×2 (07:53→17:54)
[2024-06-01 08:09] LABS: Glucose Point of Care 131 mg/dL (70-110)
[2024-06-01] MEDS: haloperidol inj 5 mg/mL INJ 1 mL IM ×2 (08:30→12:00)
[2024-06-01] MEDS: diphenhydrAMINE 50 mg/mL SDV 1mL IM ×2 (08:31→12:00)
--- NOTE | 2024-06-01 09:17 | PC.NURSE ---
Upon entering room patient on her knees at the side of the bed in the floor patient states i hurt i cant be in the bed the floor hurt everything hurts patient is apologetic for her behavior further attempts made to direct patient back in to the bed and patient refused. A fall mat placed to aid in protection of affected stump wounds and prevent further injury to her legs patient was agreeable to stay on the ashley reporting that it does help 1:1 sitter at patient side
[2024-06-01] MEDS: midazolam 1 mg/mL INJ 2 mL 2 MG (11:22)
[2024-06-01 11:57] LABS: Hepatitis B Surface Antigen Non-Reactive (Nonreactive); Hepatitis C Virus Antibody Non-Reactive (Nonreactive)
[2024-06-01] MEDS: LORazepam 2 mg/mL INJ 1 mL IM (12:00)
[2024-06-01 12:16] LABS: HIV 1 & 2 Antibody Non-Reactive (Non-Reactiv); HIV 1 & 2 Antigen Non-Reactive (Non-Reactiv)
--- NOTE | 2024-06-01 12:24 | PC.NURSE ---
Patient transfered to NPU, vital signs stable upon transfer. Patient drowsy but answered questions appropriately
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
--- NOTE | 2024-06-01 15:04 | W.PM.NPUPNS ---
Subjective NPU Subjective: Patient presented today reporting that she is in excruciating pain and she does not understand why she is doing so poorly today versus how she did it all weekend. We discussed the fact that this is pain management and not pain extermination and so that she is unfortunately going to have to figure out how to manage her symptoms when things are not well. She denied any side effects to the medication only reporting that her pain was not under control today. Mental Status Exam MSE Comments: This is an overweight white female in hospital scrubs with limited grooming and eye contact.? With notable below-knee amputation bilaterally. No abnormal movements except for extreme psychomotor agitation.? Mostly cooperative with exam in moderate to extreme distress.? Speech was slightly increased rate and volume.? Mood described as an pain, affect congruent.? Thought process linear.? Thought content: Patient denied current suicidal or homicidal ideation, there were no delusions reported or noted, she denied auditory or visual hallucinations.? Attention and concentration were limited and memory appeared more reliable but none were formally tested.? She is alert and oriented x3.? Insight and judgment are limited today and impulse control is impaired. Vitals/I&O/Wt Last Vital Signs Temp 98.9 F 06/01/24 08:00 Pulse 124 H 06/01/24 08:00 Resp 18 06/01/24 12:00 BP 194/118 06/01/24 08:00 Pulse Ox 99 05/31/24 20:00 O2 Del Method Room Air 05/31/24 20:00 O2 Flow Rate 2 05/23/24 23:49 06/01/24 06/01/24 06/01/24 06:59 14:59 22:59 Intake Total 50 / 50 Balance 50 / 50 Weight last 48 hrs Weight 70 kg Data NPU 05/30/24 04:26 05/30/24 04:26 A&P Assessment and plan (1) Anemia of chronic disease: (2) Suicide ideation: (3) Acute flank pain: (4) Depression: Qualifiers: Depression Type: unspecified Qualified Code(s): F32.9 - Major depressive disorder, single episode, unspecified (5) Below-knee amputation of left lower extremity: (6) ALEJANDRO (generalized anxiety disorder): (7) Diabetic ophthalmopathy: (8) Diabetic gastroparesis: (9) Insomnia: Qualifiers: Insomnia type: due to medical condition Qualified Code(s): G47.01 - Insomnia due to medical condition (10) Diabetes mellitus type 1: Qualifiers: Diabetes mellitus complication status: with hyperglycemia Qualified Code(s): E10.65 - Type 1 diabetes mellitus with hyperglycemia (11) GERD (gastroesophageal reflux disease): Qualifiers: Esophagitis presence: without esophagitis Qualified Code(s): K21.9 - Gastro-esophageal reflux disease without esophagitis (12) Amputation of toe of right foot: (13) Suicidal ideation: (14) Combative behavior: (15) Suicide attempt: (16) History of financial difficulties: (17) Infection of amputation stump: (18) Pain of amputation stump of left lower extremity: (19) Low back pain: Plan This is a 44-year-old female with significant past psychiatric and addiction issues with frequent suicidal ideation secondary to her medical comorbidities presents again with suicidality which is connected to reported pain syndrome now with bilateral BKA. Plan: 1.? Continue current medication.? Increased Paxil to 40 mg p.o. daily 2.? Initiated 21-day hold paperwork. 21-day hold granted 3.? Obtain collateral information. 4.? Transferred back to neuropsychiatric unit with plan to manage pain with current medications without changes. 5.? Continue one-to-one. 6. Plan for discharge in the next 48 hours with signs of stability. Involuntary Hold Information 96 Hour Hold: 96 Hour Involuntary Admission: No 96 Hour Hold Ending Date: 05/29/24 96 Hour Hold Ending Time: 00:01 Attestations NPU Medical Necessity Statement*: Inpatient hospitalization is medically necessary and the clinically appropriate intervention at this time. We will initiate medications and make changes as indicated. Likely length of stay 1-3 days Coding Level of Care Code Acute Code for [facility] Fwd Diagnoses Anemia of chronic disease D63.8 Suicide ideation R45.851 Acute flank pain R10.9 Depression, unspecified depression type F32.9 Depression Type: unspecified Below-knee amputation of left lower extremity S88.112A ALEJANDRO (generalized anxiety disorder) F41.1 Diabetic ophthalmopathy E11.39 Diabetic gastroparesis E11.43; K31.84 Insomnia due to medical condition G47.01 Insomnia type: due to medical condition Type 1 diabetes mellitus with hyperglycemia E10.65 Diabetes mellitus complication status: with hyperglycemia Gastroesophageal reflux disease without esophagitis K21.9 Esophagitis presence: without esophagitis Amputation of toe of right foot S98.131A Combative behavior R46.89 Suicide attempt T14.91XA History of financial difficulties Z87.898 Infection of amputation stump T87.40 Pain of amputation stump of left lower extremity T87.89; M79.605 Low back pain M54.5
[2024-06-01 15:28] LABS: Glucose Point of Care 126 mg/dL (70-110)
[2024-06-01] MEDS: cyclobenzaprine 10 mg Tablet PO ×2 (15:56→21:03)
--- NOTE | 2024-06-01 16:01 | PC.NURSE ---
PT REQUESTED PRN PAIN MEDICATION. THIS NURSE ADMINISTERED PRN OXYCODONE PER ORDER. WHILE PULLING PRN PAIN MEDICATION THIS NURSE NOTICED THAT HAD SCHEDULED 7.5MG FLEXARIL, THIS PYXIS WANTED THIS NURSE TO PULL A 10 MG TABLET. THIS NURSE CONTACTED HOSPITAL PHARMACY TO SEE IF THERE WAS A WAY TO CORRECTLY OBTAIN THAT DOSE. THE HOSPITAL ONLY CARRIES 10 MG TABLETS. PRESALES CONSULTANT CAME TO NURSE AND INFORMED THIS NURSE THAT PT BLOOD PRESSURE WAS 198/99 SO THIS NURSE REQUESTED A MANUAL BLOOD PRESSURE. MANUAL BLOOD PRESSURE WAS OBTAINED AND IT WAS 202/100/. THIS NURSE NOTIFIED AT 1535. PHYSICIAN WAS NOTIFIED ABOUT THE BLOOD PRESSURE AND THIS NURSE CLARIFIED THE MEDICATION. PHYSICIAN ORDERED FOR THIS NURSE TO INCREASE THE FLEXARIL TO 10 MG AND TO RECHECK PT BLOOD PRESSURE ABOUT 30 MINUTES TO 1 HOUR AFTER PT RECEIVES PAIN MEDICATION AND FLEXARIL.
--- NOTE | 2024-06-01 16:52 | PC.NURSE ---
PT HAS BEEN TRYING TO MAKE HERSELF VOMIT BY STICKING HER FINGERS IN HER MOUTH MULTIPLE TIMES THROUGHOUT THE DAY.
[2024-06-01 18:00] LABS: Glucose Point of Care 192 mg/dL (70-110)
[2024-06-01] MEDS: insulin lispro 100 unit/1 mL SUBCUT (18:09)
[2024-06-01 20:08] LABS: Glucose Point of Care 100 mg/dL (70-110)
[2024-06-01] MEDS: ropinirole 1 mg Tablet PO (21:03)
[2024-06-01] MEDS: haloperidol 5 mg Tablet PO (21:03)
[2024-06-01] MEDS: trazodone 50 mg Tablet PO (21:04)
[2024-06-02] VITALS (9 sets, daily range): BP systolic 104–143; BP diastolic 63–95; PULSE 77–99; RESP 15–18; TEMP 36.8–36.9; O2SAT 95–100
[2024-06-02] MEDS: trazodone 50 mg Tablet PO ×2 (00:37→20:36)
[2024-06-02] MEDS: oxyCODONE-APAP 5-325 mg Tablet 1.5 TAB PO ×5 (00:37→19:42)
[2024-06-02] MEDS: hyDROXYzine 25 mg Capsule 50 MG PO ×2 (04:22→20:36)
[2024-06-02 07:33] LABS: Glucose Point of Care 137 mg/dL (70-110)
[2024-06-02] MEDS: cefUROXime 250 mg Tablet 500 MG PO ×2 (08:28→17:29)
[2024-06-02] MEDS: pregabalin 25 mg Capsule 50 MG PO ×2 (08:28→17:30)
[2024-06-02] MEDS: oxyCODONE 10 mg ER (12 HR) Tablet PO ×2 (08:28→17:29)
[2024-06-02] MEDS: amlodipine 5 mg Tablet PO (08:28)
[2024-06-02] MEDS: pantoprazole DR 40 mg Tablet PO (08:28)
[2024-06-02] MEDS: PARoxetine 20 mg Tablet 40 MG PO (08:29)
[2024-06-02] MEDS: cyclobenzaprine 10 mg Tablet PO ×3 (08:29→20:36)
[2024-06-02 11:37] LABS: Glucose Point of Care 103 mg/dL (70-110)
--- NOTE | 2024-06-02 15:17 | W.PM.NPUPNS ---
Subjective NPU Subjective: Patient presented today reporting that she is doing all right. She reports that she is doing better and has more optimistic moving forward. We discussed the plan for discharge in the next likely 24 hours. She was positive about this plan and was just wondering about her medications for going home. We discussed the risks, benefits and alternatives of starting Cymbalta 20 mg p.o. 3 times daily as well as Seroquel 100 mg at night to deal with some of the symptoms that she is having. We agreed we talked with the hospitalist team to determine what the plan is for discharge. She denies any side effects to the medications.. Mental Status Exam MSE Comments: This is an overweight white female in hospital scrubs with limited grooming and eye contact.? With notable below-knee amputation bilaterally. No abnormal movements except for mild psychomotor retardation.? Mostly cooperative with exam in mild distress.? Speech was slightly decreased rate and volume.? Mood described as a little better, affect congruent.? Thought process linear.? Thought content: Patient denied current suicidal or homicidal ideation, there were no delusions reported or noted, she denied auditory or visual hallucinations.? Attention and concentration were improving and memory appeared mostly unreliable but none were formally tested.? She is alert and oriented x3.? Insight, judgment and impulse control are all limited. Vitals/I&O/Wt Last Vital Signs Temp 98.3 F 06/02/24 06:00 Pulse 88 06/02/24 14:00 Resp 16 06/02/24 14:39 BP 118/95 06/02/24 14:00 Pulse Ox 99 06/02/24 14:00 O2 Del Method Room Air 06/02/24 06:00 O2 Flow Rate 2 05/23/24 23:49 Data NPU 05/30/24 04:26 05/30/24 04:26 A&P Assessment and plan (1) Anemia of chronic disease: (2) Suicide ideation: (3) Acute flank pain: (4) Depression: Qualifiers: Depression Type: unspecified Qualified Code(s): F32.9 - Major depressive disorder, single episode, unspecified (5) Below-knee amputation of left lower extremity: (6) ALEJANDRO (generalized anxiety disorder): (7) Diabetic ophthalmopathy: (8) Diabetic gastroparesis: (9) Insomnia: Qualifiers: Insomnia type: due to medical condition Qualified Code(s): G47.01 - Insomnia due to medical condition (10) Diabetes mellitus type 1: Qualifiers: Diabetes mellitus complication status: with hyperglycemia Qualified Code(s): E10.65 - Type 1 diabetes mellitus with hyperglycemia (11) GERD (gastroesophageal reflux disease): Qualifiers: Esophagitis presence: without esophagitis Qualified Code(s): K21.9 - Gastro-esophageal reflux disease without esophagitis (12) Amputation of toe of right foot: (13) Suicidal ideation: (14) Combative behavior: (15) Suicide attempt: (16) History of financial difficulties: (17) Infection of amputation stump: (18) Pain of amputation stump of left lower extremity: (19) Low back pain: Plan This is a 44-year-old female with significant past psychiatric and addiction issues with frequent suicidal ideation secondary to her medical comorbidities presents again with suicidality which is connected to reported pain syndrome now with bilateral BKA. Plan: 1.? Continue current medication.? Increased Paxil to 40 mg p.o. daily. Start Cymbalta 20 mg p.o. twice daily and Seroquel 100 mg p.o. nightly. 2.? Initiated 21-day hold paperwork. 21-day hold granted 3.? Obtain collateral information. 4.? Transferred back to neuropsychiatric unit with plan to manage pain with current medications without changes. 5.? Continue one-to-one. 6. Plan for discharge in the next 48 hours with signs of stability. Involuntary Hold Information 96 Hour Hold: 96 Hour Involuntary Admission: No 96 Hour Hold Ending Date: 05/29/24 96 Hour Hold Ending Time: 00:01 Attestations NPU Medical Necessity Statement*: Inpatient hospitalization is medically necessary and the clinically appropriate intervention at this time. We will initiate medications and make changes as indicated. Likely length of stay 1-3 days Coding Level of Care Code Acute Code for [facility] Fwd Diagnoses Anemia of chronic disease D63.8 Suicide ideation R45.851 Acute flank pain R10.9 Depression, unspecified depression type F32.9 Depression Type: unspecified Below-knee amputation of left lower extremity S88.112A ALEJANDRO (generalized anxiety disorder) F41.1 Diabetic ophthalmopathy E11.39 Diabetic gastroparesis E11.43; K31.84 Insomnia due to medical condition G47.01 Insomnia type: due to medical condition Type 1 diabetes mellitus with hyperglycemia E10.65 Diabetes mellitus complication status: with hyperglycemia Gastroesophageal reflux disease without esophagitis K21.9 Esophagitis presence: without esophagitis Amputation of toe of right foot S98.131A Combative behavior R46.89 Suicide attempt T14.91XA History of financial difficulties Z87.898 Infection of amputation stump T87.40 Pain of amputation stump of left lower extremity T87.89; M79.605 Low back pain M54.5
[2024-06-02] MEDS: flu vacc pf 24-25 (6 mos+) SYRINGE 45 MCG IM (16:02)
[2024-06-02 17:01] LABS: Glucose Point of Care 98 mg/dL (70-110)
[2024-06-02] MEDS: duloxetine 20 mg Capsule PO (17:30)
[2024-06-02 20:06] LABS: Glucose Point of Care 207 mg/dL (70-110)
[2024-06-02] MEDS: ropinirole 1 mg Tablet PO (20:36)
[2024-06-02] MEDS: quetiapine 100 mg Tablet PO (20:36)
[2024-06-02] MEDS: insulin lispro 100 unit/1 mL SUBCUT (20:40)
[2024-06-03] VITALS (8 sets, daily range): BP systolic 104–129; BP diastolic 63–75; PULSE 77–80; RESP 16–18; TEMP 36.6–36.9; O2SAT 100
[2024-06-03] MEDS: oxyCODONE-APAP 5-325 mg Tablet 1.5 TAB PO ×4 (01:40→16:14)
[2024-06-03] MEDS: ondansetron 4 MG Tablet PO ×2 (01:43→08:32)
[2024-06-03] MEDS: ibuprofen 600 mg Tablet PO ×2 (03:36→11:16)
--- NOTE | 2024-06-03 06:25 | PC.NURSE ---
pt resting resp at 16 nurse notified
[2024-06-03] MEDS: amlodipine 5 mg Tablet PO (08:28)
[2024-06-03] MEDS: pregabalin 25 mg Capsule 50 MG PO ×2 (08:28→17:28)
[2024-06-03] MEDS: cyclobenzaprine 10 mg Tablet PO ×2 (08:28→14:29)
[2024-06-03] MEDS: PARoxetine 20 mg Tablet 40 MG PO (08:28)
[2024-06-03] MEDS: pantoprazole DR 40 mg Tablet PO (08:28)
[2024-06-03] MEDS: cefUROXime 250 mg Tablet 500 MG PO ×2 (08:28→17:28)
[2024-06-03] MEDS: oxyCODONE 10 mg ER (12 HR) Tablet PO ×2 (08:28→17:28)
[2024-06-03] MEDS: duloxetine 20 mg Capsule PO ×2 (08:28→17:28)
[2024-06-03] MEDS: insulin lispro 100 unit/1 mL SUBCUT (08:32)
[2024-06-03 08:37] LABS: Glucose Point of Care 154 mg/dL (70-110)
--- NOTE | 2024-06-03 10:55 | PC.NURSE ---
PT OBSERVED SITTING IN FLOOR RIPPING OFF DRESSING TO LEFT AGAIN, PT IS ROCKING BACK AND FORTH RUBBING HER BACK AND SPINE ON THE DOOR FRAME STATING I'M HURTING I'M NEEDING MY OXY. SECURITY TO WINDOW AND RELAYED THE MESSAGE. MED NURSE NOTIFIED TO GIVE PRN OXYCODONE 7.5MG/500 MG IF IT IS DUE. RATES PAIN 8/10 IN BACK. DENIES SI/HI AND AVH AT THIS TIME. RATES ANXIETY AND DEPRESSION 8/10.PT REPORTS SHE ONLY SLEPT 3-4 HOURS LAST NIGHT. WHEN THIS RN WENT INTO ROOM A BASIN OF EMESIS WAS OBSERVED SITTING ON THE SIDE OF THE BED. PT REPORTS SHE THREW UP 3-4 TIMES LAST NIGHT AND I HAD DIARRHEA. WHEN ASKED HOW MANY TIMES SHE HAD DIARRHEA SHE STATES 3-4 TIMES AGAIN. EMESIS WAS CLEANED UP AND REMOVED FROM ROOM. PT WAS GIVEN A CLEAN CLOTH TO WASH FACE AND STAFF INSTRUCTED TO CLEAN UP ROOM AND TO DISINFECT WHERE PT HAD TAKEN OFF DRESSING AND CRAWLED AROUND IN THE FLOOR, BROWNE AND SHOWER. PT THEN TOOK ANOTHER SHOWER. AFTER PT RETURNED TO ROOM, SHOWER WAS CLEANED BY STAFF. MED NURSE AND STUDENT WENT TO COMPLETE WOUND ASSESSMENT AND DRESSING TO LEFT STUMP. ONE TO ONE OBSERVATION CONTINUES DUE TO PTS IMPULSIVE BEHAVIORS AND ACTING OUT. ALL QUESTIONS WERE ANSWERED AND SUPPORT WAS VOICED.
--- NOTE | 2024-06-03 11:07 | W.PM.NPUDCS ---
Diagnoses at Discharge Discharge Diagnosis (1) Anemia of chronic disease: Status: Inactive (2) Suicide ideation: Status: Resolved (3) Acute flank pain: Status: Acute (4) Depression: Status: Acute Qualifiers: Depression Type: unspecified Qualified Code(s): F32.9 - Major depressive disorder, single episode, unspecified (5) Below-knee amputation of left lower extremity: Status: Inactive (6) ALEJANDRO (generalized anxiety disorder): Status: Inactive (7) Diabetic ophthalmopathy: Status: Acute (8) Diabetic gastroparesis: Status: Acute (9) Insomnia: Status: Inactive Qualifiers: Insomnia type: due to medical condition Qualified Code(s): G47.01 - Insomnia due to medical condition (10) Diabetes mellitus type 1: Status: Acute Qualifiers: Diabetes mellitus complication status: with hyperglycemia Qualified Code(s): E10.65 - Type 1 diabetes mellitus with hyperglycemia Permanent problem details: diagnosed age 15, history of peripheral neuropathy, gastroparesis and nephropathy (11) GERD (gastroesophageal reflux disease): Status: Inactive Qualifiers: Esophagitis presence: without esophagitis Qualified Code(s): K21.9 - Gastro-esophageal reflux disease without esophagitis (12) Amputation of toe of right foot: Status: Acute (13) Combative behavior: Status: Acute (14) Suicide attempt: Status: Acute (15) History of financial difficulties: Status: Acute (16) Infection of amputation stump: Status: Acute (17) Pain of amputation stump of left lower extremity: Status: Acute (18) Low back pain: Status: Acute Reason for Visit Reason for Visit: Psych eval Involuntary Hold Information 96 Hour Hold: 96 Hour Involuntary Admission: No 96 Hour Hold Ending Date: 05/29/24 96 Hour Hold Ending Time: 00:01 Mental Status Exam MSE Comments: This is an overweight white female in hospital scrubs with limited grooming and eye contact.? With notable below-knee amputation bilaterally. No abnormal movements except for mild psychomotor retardation.? Mostly cooperative with exam in mild distress.? Speech was slightly decreased rate and volume.? Mood described as a little better, affect congruent.? Thought process linear.? Thought content: Patient denied current suicidal or homicidal ideation, there were no delusions reported or noted, she denied auditory or visual hallucinations.? Attention and concentration were improving and memory appeared mostly unreliable but none were formally tested.? She is alert and oriented x3.? Insight, judgment and impulse control are all limited. Discharge Data Studies Completed and Pending: Completed Studies During Hospitalization Category Date Time Status CT head wo con* 7 0450 Stat Cat Scan 05/23/24 22:[address] head wo con* 7 0450 Stat Cat Scan 05/28/24 11:[address] knee LT wo con * [id number] Routine Cat Scan 05/24/24 14:[address] neck wo con 70 490 Routine Cat Scan 05/24/24 11:[address] thoracic spin wo con* [id number] Rout ine Cat Scan 05/25/24 14:22 Completed CXRP [XR chest 1V portable [id number]] R outine Exams 05/24/24 16:44 Completed XR chest 1V angle ble [id number] Stat Exams 05/23/24 22:29 Completed MR lumbar spine w o con* [id number] Urgen t MRI 05/28/24 12:23 Completed MR thoracic spin wo con* [id number] Rout ine MRI 05/28/24 17:18 Completed Radiology Impressions Neck CT 05/24/24 11:02 IMPRESSION: 1. No definite acute findings. 2. Advanced degenerative changes at C5-C6, similar to prior. 3. Scattered atherosclerotic calcifications as above, premature for age. 4. 5 mm ground-glass nodule in the right upper lobe. No routine follow-up is indicated. (Reference: Gennaro) REFERENCES: Gennaro H, et al. Guidelines for Management of Incidental Pulmonary Nodules Detected on CT Images: From the Fleischner Society 2017. Radiology. 2017;284(1):228-243. Knee CT 05/24/24 14:44 IMPRESSION: 1. Cellulitis with possible phlegmon/developing abscess along the anterolateral superficial muscular fascia. There is underlying mild periostitis of the tibial stump, likely reactive. No shelbi osseous erosion to suggest osteomyelitis at this time. Consider correlation with MRI when clinically feasible. Chest X-Ray 05/24/24 16:44 IMPRESSION: Right arm PICC tip in the lower SVC. Thoracic Spine CT 05/25/24 14:22 IMPRESSION: 1. Cardiomegaly. 2. Coronary artery atherosclerotic calcifications. 3. Bibasilar atelectasis. 4. Cholecystectomy. ADDENDUM: 05/26/24 0018 Negative for fracture or dislocation. Head CT 05/28/24 11:57 IMPRESSION: No acute findings.Non acute findings as described above. Lumbar Spine MRI 05/28/24 12:23 IMPRESSION: 1. Mild lumbar curve. No acute compression. 2. No high-grade central canal stenosis. 3. Mild annular bulging L4-L5 and L5-S1 with slight narrowing of the subarticular recess. 4. Mild LEFT L3-4 foraminal narrowing. Thoracic Spine MRI 05/28/24 17:18 IMPRESSION: 1. No acute thoracic spine findings. 2. Mild to moderate central canal stenosis in the cervical spine described above. This can be followed up with cervical spine MRI. Laboratory Results WBC 4.88 10^3/uL (3.2 9-11.43) 05/30/24 04:26 RBC 2.70 10^6/uL (3.8 5-5.65) L 05/30/24 04:26 Hgb 8.10 g/dL (11.27- 16.99) L 05/30/24 04:26 Hct 27.6 % (36-47) L 05/30/24 04:26 MCV 102.2 fl (85-98) H D 05/30/24 04:26 MCH 30.0 pg (27-33) 05/30/24 04:26 MCHC 29.3 g/dL (30-55) L D 05/30/24 04:26 RDW 12.9 % (12.1-15.1 ) 05/30/24 04:26 Plt Count 181 10^3/cmm (157 -399) D 05/30/24 04:26 MPV 9.3 fL (7.4-10.4) 05/30/24 04:26 Neut % (Auto) 53.9 % 05/30/24 04:26 Lymph % (Auto) 36.3 % 05/30/24 04:26 [place] % (Auto) 5.7 % 05/30/24 04:26 Eos % (Auto) 2.7 % 05/30/24 04:26 Baso % (Auto) 1.0 % 05/30/24 04:26 Neut # (Auto) 2.63 10^3/uL (1.8 -7.7) 05/30/24 04:26 Lymph # (Auto) 1.8 10^3/uL (0.8- 4.8) 05/30/24 04:26 [place] # (Auto) 0.3 10^3/uL (0.2- 0.9) 05/30/24 04:26 Eos # (Auto) 0.1 10^3/uL (0.0- 0.8) 05/30/24 04:26 Baso # (Auto) 0.1 10^3/uL (0.0- 0.1) 05/30/24 04:26 Nucleated RBC % (a uto) 0 % 05/30/24 04: Nucleated RBCs # 0.0 /100WBC 05/30/24 04:26 Specimen Type Arterial 05/23/24 22:25 Sample Site Brachial, right 05/23/24 22:25 ABG pH 7.42 (7.35-7.45) 05/23/24 22:25 ABG pCO2 36.3 mmHg (35-45) 05/23/24 22:25 ABG pO2 263.0 mmHg (80.0- 100.0) H 05/23/24 22:25 ABG HCO3 23.4 mmol/L (22-2 6) 05/23/24 22:25 ABG Base Excess -0.9 mmol/L (-2.0 -2.0) 05/23/24 22:25 Steve Test N/a 05/23/24 22:25 Hematocrit 28.6 % (37-47) L 05/23/24 22:25 O2 Delivery Device Nc 05/23/24 22:25 O2 Liters/Min 6.0 % 05/23/24 22:25 Rotary Soil Stabilizer Operator ID [email or web address] 05/23/24 22:25 Sodium 136 mmol/L (136-1 45) 05/30/24 04:26 Potassium 4.2 mmol/L (3.5-5 .1) 05/30/24 04:26 Chloride 104 mmol/L (98-10 7) 05/30/24 04:26 Carbon Dioxide 24 mmol/L (22-29) 05/30/24 04:26 Anion Gap 12.2 (5-19) 05/30/24 04:26 BUN 23 mg/dL (6-20) H 05/30/24 04:26 Creatinine 1.7 mg/dL (0.5-0. 9) H 05/30/24 04:26 GFR Calculation 32.4 mL/min (90-1 30) L 05/30/24 04:26 Glucose 148 mg/dL (65-115 ) H 05/30/24 04:26 POC Glucose 154 mg/dL (70-110 ) H 06/03/24 08:23 Estimat Average Gl ucose 103 05/23/24 22:50 Hemoglobin A1c 5.2 % (4.0-6.0) 05/23/24 22:50 Calculated Osmolal ity 288 mOsm/kg (285- 295) 05/30/24 04:26 Calcium 8.3 mg/dL (8.5-10 .5) L 05/30/24 04:26 Magnesium 1.8 mg/dL (1.7-2. 3) 05/30/24 04:26 Total Bilirubin 0.2 mg/dL (0.15-1 .2) 05/25/24 05:23 AST 16 U/L (0-32) 05/25/24 05:23 ALT 9 U/L (0-33) 05/25/24 05:23 Alkaline Phosphata se 184 U/L (35-105) H 05/25/24 05:23 Total Protein 6.7 g/dL (6.6-8.7 ) D 05/25/24 05:23 Albumin 3.2 g/dL (3.5-5.2 ) L 05/25/24 05:23 Globulin 3.5 g/dL (1.3-4.6 ) 05/25/24 05:23 TSH 0.19 uIU/mL (0.27 -4.20) L 05/23/24 22:50 Free T4 1.40 ng/dL (0.82- 1.77) 05/24/24 11:07 Free T3 3.0 PG/ML (2.0-4. 4) 05/24/24 11:07 Urine Color Yellow (Yellow) 05/24/24 05:00 Urine Appearance Clear (CLEAR) 05/24/24 05:00 Urine pH 6.0 (5-7) 05/24/24 05:00 Ur Specific Gravit y 1.008 (1.005-1.0 30) 05/24/24 05:00 Urine Protein 3+ (Negative) A 05/24/24 05:00 Urine Glucose (UA) Trace (Normal) H 05/24/24 05:00 Urine Ketones Negative (Negati ve) 05/24/24 05:00 Urine Blood 2+ (Negative) A 05/24/24 05:00 Urine Nitrate Negative (Negati ve) 05/24/24 05:00 Urine Bilirubin Negative (Negati ve) 05/24/24 05:00 Urine Urobilinogen 1.0 mg/dL (Negati ve) 05/24/24 05:00 Ur Leukocyte Estephania ase Negative (Negati ve) 05/24/24 05:00 Urine RBC 0-2 /hpf (0-2) 05/24/24 05:00 Urine WBC 0-5 /hpf (0-5) 05/24/24 05:00 Ur Squamous Epith Cells 0-5 /hpf (0-5) 05/24/24 05:00 Amorphous Sediment Not Reportable 05/24/24 05:00 Urine Bacteria None seen /hpf (N ONE) 05/24/24 05:00 Hyaline Casts 0-4 /lpf H 05/24/24 05:00 Salicylates < 0.3 mg/dL (3-10 ) L 05/23/24 22:50 Urine Opiates Scre en Negative ng/mL (N egative) 05/24/24 05:00 Acetaminophen < 5.0 ug/mL (10-3 0) L 05/23/24 22:50 Ur Barbiturates Sc reen Negative ng/mL (N egative) 05/24/24 05:00 Ur Phencyclidine S crn Negative ng/mL (N egative) 05/24/24 05:00 Ur Amphetamines Sc reen Negative ng/mL (N egative) 05/24/24 05:00 U Benzodiazepines Scrn Negative ng/mL (N egative) 05/24/24 05:00 Urine Cocaine Scre en Negative ng/mL (N egative) 05/24/24 05:00 U Marijuana (THC) Screen Positive ng/mL (N egative) H 05/24/24 05:00 Ethyl Alcohol < 10 mg/dL (0-10) 05/23/24 22:50 Hep Bs Antigen Non-reactive (No nreactive) 06/01/24 11:05 Hepatitis C Antibo dy Non-reactive (No nreactive) 06/01/24 11:05 HIV 1&2 Ab & HIV 1 Ag Non-reactive (No n-Reactiv) 06/01/24 11:05 HIV 1&2 Antibody Non-reactive (No n-Reactiv) 06/01/24 11:05 Vitals: Last Vital Signs Temp 98.5 F 06/02/24 19:30 Pulse 77 06/02/24 19:30 Resp 17 06/03/24 08:28 BP 104/63 06/02/24 19:30 Pulse Ox 100 06/02/24 19:30 O2 Del Method Room Air 06/02/24 06:00 O2 Flow Rate 2 05/23/24 23:49 Discharge Plan Discharge Condition: Fair Prescriptions: New ropinirole 1 mg Tablet 1 mg PO BEDTIME 30 Days Qty: 30 1RF quetiapine 100 mg Tablet 100 mg PO BEDTIME 30 Days Qty: 30 0RF paroxetine HCl 20 mg Tablet 40 mg PO DAILY 30 Days Qty: 60 1RF pantoprazole 40 mg Tablet,Delayed Release (Dr/Ec) 40 mg PO DAILY 30 Days Qty: 30 1RF hydroxyzine pamoate 25 mg Capsule 50 mg PO Q6H PRN (Reason: Anxiety) 30 Days Qty: 120 1RF duloxetine 20 mg Capsule,Delayed Release(Dr/Ec) 20 mg PO BID 30 Days Qty: 60 1RF Discontinued paroxetine HCl 10 mg tablet 20 mg PO DAILY 30 Days Qty: 60 0RF No Action pregabalin 50 mg capsule 50 mg PO BID amlodipine 5 mg Tablet 5 mg PO DAILY 30 Days Qty: 30 0RF linezolid [Zyvox] 600 mg tablet 600 mg PO Q12H 10 Days Qty: 20 0RF amoxicillin-pot clavulanate 875-125 mg tablet 1 tab PO BID 10 Days Qty: 20 0RF metoclopramide HCl 10 mg tablet 10 mg PO QID PRN (Reason: Constipation) Qty: 1 0RF oxycodone 5 mg tablet 5 mg PO Q6H PRN (Reason: pain) 5 Days Qty: 20 0RF Referrals: Monika Simpson MD [Primary Care Provider] - Discharge Diet: Diabetic Discharge Activity: Limit activity as instructed and Wheelchair as instructed Patient Instructions: Opioid Safety Discharge Attestations NPU Time Spent in Discharge Care*: greater than 30 min Specific Discharge Activities: Specific discharge activities: educating patient, discussing with pcp/other providers, discussing with continuous pillowcase cutter/social workers/dc planners, documenting/other paperwork and evaluating patient/reviewing data Status at Discharge: Cognitive status at discharge: cognitively intact, Behavioral status at discharge: cooperative, Coding Level of Care Code Acute Code for Chg Fwd Diagnoses Anemia of chronic disease D63.8 Suicide ideation R45.851 Acute flank pain R10.9 Depression, unspecified depression type F32.9 Depression Type: unspecified Below-knee amputation of left lower extremity S88.112A ALEJANDRO (generalized anxiety disorder) F41.1 Diabetic ophthalmopathy E11.39 Diabetic gastroparesis E11.43; K31.84 Insomnia due to medical condition G47.01 Insomnia type: due to medical condition Type 1 diabetes mellitus with hyperglycemia E10.65 Diabetes mellitus complication status: with hyperglycemia Gastroesophageal reflux disease without esophagitis K21.9 Esophagitis presence: without esophagitis Amputation of toe of right foot S98.131A Combative behavior R46.89 Suicide attempt T14.91XA History of financial difficulties Z87.898 Infection of amputation stump T87.40 Pain of amputation stump of left lower extremity T87.89; M79.605 Low back pain M54.5
[2024-06-03] MEDS: calcium carbonate 500 mg Chew Tablet 1000 MG PO (11:43)
[2024-06-03 11:51] LABS: Glucose Point of Care 100 mg/dL (70-110)
[2024-06-03 17:19] LABS: Glucose Point of Care 77 mg/dL (70-110)
--- NOTE | 2024-06-03 17:24 | PC.NURSE ---
PT TO DISCHARGE WITH OXYCODONE 5 MG FOR PAIN AND OXYCOTIN ER 10 MG PO BID. PHARMACY CALLED AND STATES THAT A MEDICAID ELECTRICAL MAINTENANCE ENGINEER WILL NEED TO APPROVE PTS NEED FOR THE MEDICATION PRIOR TO PAYMENT. THE PHARMACY DID FILL THE OXYCONDONE 5 MG BUT CAN NOT FILL THE EXTENDED RELEASE AT THIS TIME. THIS RN UPDATED DR. WALL THAT PT WOULD NOT BE ABLE TO LEAVE WITH THE EXTENDED RELEASE OXYCOTIN SO A ONE TIME ORDER OF OXYCOTIN ER 10MG NOW ORDER WAS RECEIVED BY DR. WALL FOR PT TO TAKE AT THE TIME OF DISCHARGE. PT WAS EDUCATED ABOUT THE ORDER AND THAT SHE WOULD NEED TO CALL THE PHARMACY TOMORROW TO SEE IF THE MEDICAID WOULD PAY FOR THE OXYCOTIN ER. ALL QUESTIONS WERE ANSWERED AND SUPPORT WAS VOICED. PT AND VERBALIZED UNDERSTANDING AND PHONE NUMBER TO THE PHARMACY WAS GIVEN.
--- NOTE | 2024-06-04 09:41 | PC.NURSE ---
THIS RN FOLLOWED UP ON OXYCOTIN ER 10 MG AND TO SEE IF IT HAD BEEN APPROVED. BENITO FROM THE PHARMACY STATES IT WAS APPROVED BY MEDICAID. SHELLIE AND HER ANALI WERE NOTIFIED THAT THE MEDICATIONS ARE READY TO PSYCHIATRIC NURSE PRACTITIONER AT THE [facility] [place]. SUPPORT WAS VOICED.
== END 2024-06-03 18:00 | disposition home or self-care (01) | DRG 565 ==
LOC: ER 05-24 04:01 → ICU 05-24 04:02 → NP 05-27 17:18 → ICU 05-28 12:42 → NP 06-01 11:30
PROVIDERS: Internal Medicine; Student in an Organized Health Care Education/Training Program; Admitting Provider Student in an Organized Health Care Education/Training Program; Emergency Provider Emergency Medicine; PCP Family Medicine; Visit Provider Psychiatry & Neurology Psychiatry
DX: T87.44 Infection of amputation stump, left lower extremity (principal); R45.851 Suicidal ideations; T87.81 Dehiscence of amputation stump; B95.61 Methicillin susceptible Staphylococcus aureus infection as the cause of diseases classified elsewhere; I12.9 Hypertensive chronic kidney disease with stage 1 through stage 4 chronic kidney disease, or unspecified chronic kidney disease; E11.22 Type 2 diabetes mellitus with diabetic chronic kidney disease; N18.9 Chronic kidney disease, unspecified; I25.10 Atherosclerotic heart disease of native coronary artery without angina pectoris; Z95.5 Presence of coronary angioplasty implant and graft; Z89.512 Acquired absence of left leg below knee; Z89.511 Acquired absence of right leg below knee; F43.10 Post-traumatic stress disorder, unspecified; E11.43 Type 2 diabetes mellitus with diabetic autonomic (poly)neuropathy; K31.84 Gastroparesis; E11.39 Type 2 diabetes mellitus with other diabetic ophthalmic complication; R45.88 Nonsuicidal self-harm; G89.4 Chronic pain syndrome; D63.1 Anemia in chronic kidney disease; K21.9 Gastro-esophageal reflux disease without esophagitis; F41.1 Generalized anxiety disorder; Z87.440 Personal history of urinary (tract) infections; F32.A Depression, unspecified; M48.54XD Collapsed vertebra, not elsewhere classified, thoracic region, subsequent encounter for fracture with routine healing; F51.01 Primary insomnia; F12.90 Cannabis use, unspecified, uncomplicated; Z91.199 Patient's noncompliance with other medical treatment and regimen due to unspecified reason; R06.81 Apnea, not elsewhere classified; R41.0 Disorientation, unspecified; F91.1 Conduct disorder, childhood-onset type; Z87.891 Personal history of nicotine dependence; E78.5 Hyperlipidemia, unspecified
CPT/HCPCS: 36415; 36416; 36573; 36592; 36600; 70450; 70490; 71045; 72128; 72146; 72148; 73700; 80048; 80053; 80306; 80307; 81001; 82803; 82962; 83036; 83735; 84439; 84443; 84481; 85025; 86803; 87040; 87340; 87806; 90471; 90686; 93005; 96365; 96366; 96367; 96372; 96375; 96376; 97165; 97760; 99285; A4570; J0690; J1170; J1200; J1630; J1650; J1815; J2060; J2250; J2405; J2765; J3480; J3486; J3490; J7030; L0456; Q0162

== ENCOUNTER → 2024-06-10 15:00 | Outpatient (BNVA) | payer MEDICAID, SELFPAY | PROVIDERS: PCP Family Medicine; Visit Provider Thoracic Surgery (Cardiothoracic Vascular Surgery) | DX: I96 Gangrene, not elsewhere classified (principal); T87.81 Dehiscence of amputation stump; Y83.8 Other surgical procedures as the cause of abnormal reaction of the patient, or of later complication, without mention of misadventure at the time of the procedure; Z89.512 Acquired absence of left leg below knee | CPT/HCPCS: 97597; A6237; A6250 ==

== ENCOUNTER → 2024-06-12 08:30 | Outpatient (BNVA) | payer MEDICAID, SELFPAY | PROVIDERS: PCP Family Medicine; Visit Provider Thoracic Surgery (Cardiothoracic Vascular Surgery) | DX: I96 Gangrene, not elsewhere classified (principal); T87.81 Dehiscence of amputation stump; Y83.8 Other surgical procedures as the cause of abnormal reaction of the patient, or of later complication, without mention of misadventure at the time of the procedure; Z89.512 Acquired absence of left leg below knee | CPT/HCPCS: 97605; A6237; A6250 ==

== ENCOUNTER → 2024-06-17 07:57 | Outpatient (BNVA) | payer MEDICAID, SELFPAY | PROVIDERS: PCP Family Medicine; Visit Provider Thoracic Surgery (Cardiothoracic Vascular Surgery) | DX: I96 Gangrene, not elsewhere classified (principal); T87.81 Dehiscence of amputation stump; Y83.8 Other surgical procedures as the cause of abnormal reaction of the patient, or of later complication, without mention of misadventure at the time of the procedure; Z89.512 Acquired absence of left leg below knee | CPT/HCPCS: 87070; 87077; 87176; 87186; 87205; 97597; A6237; A6250 ==

== ENCOUNTER → 2024-06-19 09:15 | Outpatient (BNVA) | payer MEDICAID, SELFPAY | PROVIDERS: PCP Family Medicine; Visit Provider Thoracic Surgery (Cardiothoracic Vascular Surgery) | DX: T87.81 Dehiscence of amputation stump (principal); Y83.8 Other surgical procedures as the cause of abnormal reaction of the patient, or of later complication, without mention of misadventure at the time of the procedure; Z89.512 Acquired absence of left leg below knee | CPT/HCPCS: 97605; A6237; A6250 ==

== ENCOUNTER → 2024-06-24 13:37 | Outpatient (BNVA) | payer MEDICAID, SELFPAY | PROVIDERS: PCP Family Medicine; Visit Provider Thoracic Surgery (Cardiothoracic Vascular Surgery) | DX: I96 Gangrene, not elsewhere classified (principal); T87.81 Dehiscence of amputation stump; Y83.8 Other surgical procedures as the cause of abnormal reaction of the patient, or of later complication, without mention of misadventure at the time of the procedure; Z89.512 Acquired absence of left leg below knee | CPT/HCPCS: 11042; 99214 ==

== ENCOUNTER 2024-09-12 19:49 | Inpatient (IN) | payer MEDICAID, SELFPAY ==
[2024-09-12] VITALS (8 sets, daily range): BP systolic 167–178; BP diastolic 86–101; PULSE 100–116; RESP 18; TEMP 37.2; O2SAT 97–100
[2024-09-12 21:30] LABS: Basophils # 0.1 10^3/uL (0.0-0.1); Basophils % 0.5 %; Eosinophils # 0.1 10^3/uL (0.0-0.8); Eosinophils % 0.5 %; Hematocrit 28.4 % (36-47); Lymphocytes # 1.3 10^3/uL (0.8-4.8); Lymphocytes % 11.5 %; Mean Corpuscular HGB Conc 31.3 g/dL (30-55); Mean Corpuscular Hemoglobin 28.6 pg (27-33); Mean Corpuscular Volume 91.3 fl (85-98); Mean Platelet Volume 9.4 fL (7.4-10.4); Monocytes # 0.6 10^3/uL (0.2-0.9); Monocytes % 5.6 %; Neutrophils # 8.92 10^3/uL (1.8-7.7); Neutrophils % 81.1 %; Nucleated Red Blood Cells % 0 %; Platelet Count 373 10^3/cmm (157-399); Red Blood Count 3.11 10^6/uL (3.85-5.65); Red Cell Distribution Width 15.7 % (12.1-15.1); White Blood Count 11.01 10^3/uL (3.29-11.43)
[2024-09-12 21:44] LABS: Alanine Aminotransferase 54 U/L (0-33); Albumin Level 3.5 g/dL (3.5-5.2); Alkaline Phosphatase 254 U/L (35-105); Anion Gap 18.9 (5-19); Aspartate Amino Transferase 53 U/L (0-32); Blood Urea Nitrogen 39 mg/dL (6-20); C Reactive Protein 71.2 mg/L (0.0-4.9); Calcium 8.5 mg/dL (8.5-10.5); Carbon Dioxide 18 mmol/L (22-29); Chloride 98 mmol/L (98-107); Creatinine Clr Calc Pharmacy 45.6172; Globulin 3.5 g/dL (1.3-4.6); Glomerular Filtration Rate 34.7 mL/min (90-130); Glucose 117 mg/dL (65-115); Osmolality Calculated 282 mOsm/kg (285-295); Potassium 3.9 mmol/L (3.5-5.1); Sodium 131 mmol/L (136-145); Total Bilirubin 0.3 mg/dL (0.15-1.2)
--- NOTE | 2024-09-12 22:16 | CTR_ITS ---
PROCEDURE INFORMATION: Exam: CT Left Lower Extremity, Knee Exam date and time: 09/12/2024 10:52 PM Age: 44 years old Clinical indication: Swelling, leg or foot; Left; Prior surgery; Surgery date: 6+ months; Surgery type: Below knee amputation; Patient HX: Pain and swelling to lle. ; Additional info: Concern for stump infection TECHNIQUE: Imaging protocol: CT of the left lower extremity without contrast was performed. Exam focused on the knee. Radiation optimization: All CT scans at this facility use at least one of these dose optimization techniques: automated exposure control; mA and/or kV adjustment per patient size (includes targeted exams where dose is matched to clinical indication); or iterative reconstruction. COMPARISON: CT lower leg LT w con [id number] 04/16/2022 4:45 PM RADIATION DOSE METRICS: Total DLP (mGy-cm): 408.41 FINDINGS: Bones/joints: Prominent soft tissue edema with a large complex fluid collection measuring approximately 10 x 7 cm in the prepatellar/infrapatellar volar soft tissues suggestive of abscess. Infection/edema extends inferiorly to the stump where there is soft tissue ulceration and underlying erosive change/periostitis of the distal tibial stump suggestive of osteomyelitis, a component of which may reflect chronic osteomyelitis. The fibula is grossly intact. Small knee joint effusion without convincing evidence of joint involvement. No evidence of shelbi soft tissue gas. Muscular fatty atrophy noted. Soft tissues: As above. CT/CT lower leg LT wo con* [id number] IMPRESSION: 1. Extensive soft tissue infection with suspected large prepatellar/infrapatellar abscess. 2. Soft tissue ulceration with findings compatible with osteomyelitis of the distal tibial stump.
--- NOTE | 2024-09-12 22:17 | ED_ITS ---
Documented by User: SAMUEL Maurice 09/13/24 00:59 HPI - Wound/Laceration 2 General: Chief Complaint: Wound/Laceration Stated Complaint: Pain from Pelvic area down Time Seen by Provider: 09/12/24 20:25 Source: patient Mode of arrival: wheelchair Limitations: no limitations History of Present Illness: Patient is a 44-year-old female who presents to the ED today with a complaint of back pain with concern for infection involving her left BKA stump. Patient states she has a history of chronic back pain. She had MRI imaging of her lumbar and thoracic spine performed back in May which were essentially unremarkable. She has not had any new injury or trauma. Patient underwent abscess drainage to the left stump back in April by Dr. Jett. She had followed up with her as well as wound care but she has not seen either one of them in several months. She states over the past several days she has noticed swelling and increased drainage. She does have an open wound to the end of the stump. She denies fevers. She arrives to the emergency department tachycardic. Temp of 99.0. Onset (ago): day(s) Extremity Location: Left: lower leg Place: home Patient tetanus UTD: Yes Associated symptoms: Denies chills, fever(s), nausea or vomiting Related Data Home Medications Medication Instructions Recorded Confirmed pregabalin 50 mg capsule 50 mg PO BID 05/17/24 06/24/24 Previous Rx's Medication Instructions Recorded metoclopramide HCl 10 mg tablet 10 mg PO QID PRN Constipation #1 05/19/24 tab cyclobenzaprine 10 mg tablet 10 mg PO TID #30 tabs 06/03/24 duloxetine 20 mg capsule,delayed 20 mg PO BID 30 days #60 caps 06/03/24 release hydroxyzine pamoate 25 mg capsule 50 mg (2 x 25 mg) PO Q6H PRN 06/03/24 Anxiety 30 days #120 caps pantoprazole 40 mg tablet,delayed 40 mg PO DAILY 30 days #30 tabs 06/03/24 release paroxetine HCl 20 mg tablet 40 mg (2 x 20 mg) PO DAILY 30 days 06/03/24 #60 tabs ropinirole 1 mg tablet 1 mg PO BEDTIME 30 days #30 tabs 06/03/24 levofloxacin 500 mg tablet 500 mg PO Q48H 14 days #7 tabs 06/24/24 Allergies Allergy/AdvReac Type Severity Reaction Status Date / Time morphine Allergy ALGY-Difficulty Verified 09/12/24 20:19 Breathing sulfamethoxazole Allergy ADR-Vomitin Verified 09/12/24 20:19 [From Bactrim] g trimethoprim [From Bactrim] Allergy ADR-Vomitin Verified 09/12/24 20:19 g Review of Systems 2 Const: Denies: fever(s), chills, body aches, fatigue or malaise Card: Denies: chest pain Resp: Denies: dyspnea GI: Denies: abdominal pain, nausea, vomiting or diarrhea : Denies: flank pain or dysuria Musc: Reports: back pain and extremity pain; Denies: neck pain Skin/Breast: Reports: other (discharge from L BKA stump) Neuro: Denies: headache(s) PFSH ED 2 PFSH: Medical History Suicide attempt Urinary retention Septic prepatellar bursitis of left knee Chronic pain Hyperglycemia Anemia of chronic disease Insomnia GERD (gastroesophageal reflux disease) ALEJANDRO (generalized anxiety disorder) C. 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 CKD (chronic kidney disease) stage 2, GFR 60-89 ml/min baseline Cr is around 1.0 Diabetic foot ulcer s/p surgical intervention and eventual amputation Hyperlipidemia Coronary artery disease hx of stenting Diabetic gastroparesis Diabetes mellitus type 1 diagnosed age 15, history of peripheral neuropathy, gastroparesis and nephropathy Surgical History Hx of angioplasty H/O esophagogastroduodenoscopy (12/31/20) Bile reflux gastritis, grade B esophagitis Hx of cholecystectomy History of amputation of right forefoot Below-knee amputation of left lower extremity S/P percutaneous endoscopic gastrostomy (PEG) tube placement H/O exploratory laparotomy x 3 Previous section x 3 S/P coronary artery stent placement x 1 Family History Unknown Diabetes extensive, type II Other Congestive heart failure (CHF) Social History Smoking and tobacco/nicotine status: former use of tobacco/nicotine Quit status (tobacco/nicotine): has quit using Former quit date comment: 15 yrs ago Alcohol intake: former Former alcohol use details: 15 yrs ago Substance/Drug Use: current Substance/Drug use frequency: daily Household members: spouse Marital status: Current occupation: disabled Sexually active: Yes (1, ) Female Reproductive History: Spontaneous abortions: No Physical Exam 2 Const: COMMON NORMALS: no acute distress, no limitations, alert and well nourished GENERAL APPEARANCE: cooperative and appears older than stated age ORIENTATION/CONSCIOUSNESS: Yes awake, Yes oriented to person, Yes oriented to place and Yes oriented to time Neck/C-Spine: COMMON NORMALS: full ROM, no lymphadenopathy and no meningeal signs GENERAL: Yes normal visual inspection Resp: COMMON NORMALS: normal respiratory effort and clear to auscultation bilaterally AUSCULTATION: clear to auscultation bilaterally Cardio: COMMON NORMALS: regular rhythm RATE: tachycardic RHYTHM: regular rhythm GI: COMMON NORMALS: Normal to inspection, nondistended, normoactive bowel sounds present, Soft to palpation and non-tender PALPATION: Yes Soft to palpation : COMMON NORMALS: Yes no CVA tenderness BLADDER/KIDNEY EXAM: Yes no CVA tenderness Back/Pelvis: COMMON NORMALS: no CVA tenderness LUMBAR SPINE/LOWER BACK: Yes pain with ROM and Yes lumbar spinal tenderness PELVIS: Yes buttocks normal and No sciatic notch tenderness SACROILIAC JOINTS: Yes SI joints normal S ACRUM: no tenderness COCCYX: no tenderness Extremity: OTHER: bilateral BKA chronic traumatic bursitis R anterior knee (does not use prosthesis and crawls around on the floor) open wound to L BKA stump with discharge and edema and warm to the touch Neuro: SENSORIUM/ORIENTATION: Yes alert, Yes oriented to person, Yes oriented to place and Yes oriented to time MENINGEAL SIGNS: Yes no meningeal signs Course 2 Vital Signs: Vital signs: Vital Signs Temperature 99.0 F 09/12/24 20:13 Pulse Rate 91 09/13/24 02:21 Respiratory Rate 20 H 09/13/24 02:50 Blood Pressure 155/70 09/13/24 02:30 Pulse Oximetry 99 09/13/24 02:21 Oxygen Delivery Me thod Room Air 09/13/24 01:34 MDM - Wound/Laceration Medical Decision Making Patient was found to have a large 10 x 7 cm abscess involving her left BKA stump. Other findings suggestive of osteomyelitis although could reflect chronic osteomyelitis. We had originally spoke to Dr. Eli who recommended transferring patient. I spoke to Dr. Perry. Ultimately we have orthopedics, general surgery, hospitalist, infectious disease and I do not see why patient cannot be treated here at [facility]. Dr. Perry was able to speak to Dr. Nelson who graciously accepted patient for drainage of abscess. Dr. Perry also spoke to hospitalist for admission. Blood/wound cultures have been obtained. She was started on IV antibiotics. Medical Records I reviewed the patient's medical records. Lab Data I reviewed the patient's lab results. 09/12/24 21:12 09/12/24 21:12 Radiology Impressions Lower Extremity CT 09/12/24 22:16 IMPRESSION: 1. Extensive soft tissue infection with suspected large prepatellar/infrapatellar abscess. 2. Soft tissue ulceration with findings compatible with osteomyelitis of the distal tibial stump. Laboratory Results WBC 11.01 10^3/uL (3.29-11.43) 09/12/24 21:12 RBC 3.11 10^6/uL (3.85-5.65) L 09/12/24 21:12 Hgb 8.90 g/dL (11.27-16.99) L 09/12/24 21:12 Hct 28.4 % (36-47) L 09/12/24 21:12 MCV 91.3 fl (85-98) 09/12/24 21:12 MCH 28.6 pg (27-33) 09/12/24 21:12 MCHC 31.3 g/dL (30-55) 09/12/24 21:12 RDW 15.7 % (12.1-15.1) H 09/12/24 21:12 Plt Count 373 10^3/cmm (157-399) 09/12/24 21:12 MPV 9.4 fL (7.4-10.4) 09/12/24 21:12 Neut % (Auto) 81.1 % 09/12/24 21:12 Lymph % (Auto) 11.5 % 09/12/24 21:12 Rich % (Auto) 5.6 % 09/12/24 21:12 Eos % (Auto) 0.5 % 09/12/24 21:12 Baso % (Auto) 0.5 % 09/12/24 21:12 Neut # (Auto) 8.92 10^3/uL (1.8-7.7) H 09/12/24 21:12 Lymph # (Auto) 1.3 10^3/uL (0.8-4.8) 09/12/24 21:12 Rich # (Auto) 0.6 10^3/uL (0.2-0.9) 09/12/24 21:12 Eos # (Auto) 0.1 10^3/uL (0.0-0.8) 09/12/24 21:12 Baso # (Auto) 0.1 10^3/uL (0.0-0.1) 09/12/24 21:12 Nucleated RBC % (auto) 0 % 09/12/24 21:12 Nucleated RBCs # 0.0 /100WBC 09/12/24 21:12 Sodium 131 mmol/L (136-145) L 09/12/24 21:12 Potassium 3.9 mmol/L (3.5-5.1) 09/12/24 21:12 Chloride 98 mmol/L (98-107) 09/12/24 21:12 Carbon Dioxide 18 mmol/L (22-29) L 09/12/24 21:12 Anion Gap 18.9 (5-19) 09/12/24 21:12 BUN 39 mg/dL (6-20) H 09/12/24 21:12 Creatinine 1.6 mg/dL (0.5-0.9) H 09/12/24 21:12 GFR Calculation 34.7 mL/min (90-130) L 09/12/24 21:12 Glucose 117 mg/dL (65-115) H 09/12/24 21:12 Calculated Osmolality 282 mOsm/kg (285-295) L 09/12/24 21:12 Lactic Acid 1.0 mmol/L (0.5-2.2) 09/12/24 21:12 Calcium 8.5 mg/dL (8.5-10.5) 09/12/24 21:12 Total Bilirubin 0.3 mg/dL (0.15-1.2) 09/12/24 21:12 AST 53 U/L (0-32) H 09/12/24 21:12 ALT 54 U/L (0-33) H 09/12/24 21:12 Alkaline Phosphatase 254 U/L (35-105) H 09/12/24 21:12 C-Reactive Protein 71.2 mg/L (0.0-4.9) H 09/12/24 21:12 Total Protein 7.0 g/dL (6.6-8.7) 09/12/24 21:12 Albumin 3.5 g/dL (3.5-5.2) 09/12/24 21:12 Globulin 3.5 g/dL (1.3-4.6) 09/12/24 21:12 All radiology interpretation(s) finalized by discharge Discharge Plan Discharge Patient Disposition: Admitted As Inpatient Admit Provider: Christel iVckers Clinical Impression: Infection of amputation stump, Noncompliance Low back pain Qualifiers: Chronicity: unspecified Back pain laterality: unspecified Sciatica presence: u nspecified whether sciatica present Qualified Code(s): M54.50 - Low back pain, unspecified Chronic kidney disease Qualifiers: Chronic kidney disease stage: unspecified stage Qualified Code(s): N18.9 - Chronic kidney disease, unspecified Condition: Stable Coding Level of Care Code ED Planner/Scheduler for g Fwd Documented by User: Pablito Perry DO 09/13/24 03:37 HPI - Wound/Laceration 2 General: Chief Complaint: Wound/Laceration Stated Complaint: Pain from Pelvic area down Time Seen by Provider: 09/12/24 20:25 Related Data Home Medications Medication Instructions Recorded Confirmed pregabalin 50 mg capsule 50 mg PO BID 05/17/24 06/24/24 Previous Rx's Medication Instructions Recorded metoclopramide HCl 10 mg tablet 10 mg PO QID PRN Constipation #1 05/19/24 tab cyclobenzaprine 10 mg tablet 10 mg PO TID #30 tabs 06/03/24 duloxetine 20 mg capsule,delayed 20 mg PO BID 30 days #60 caps 06/03/24 release hydroxyzine pamoate 25 mg capsule 50 mg (2 x 25 mg) PO Q6H PRN 06/03/24 Anxiety 30 days #120 caps pantoprazole 40 mg tablet,delayed 40 mg PO DAILY 30 days #30 tabs 06/03/24 release paroxetine HCl 20 mg tablet 40 mg (2 x 20 mg) PO DAILY 30 days 06/03/24 #60 tabs ropinirole 1 mg tablet 1 mg PO BEDTIME 30 days #30 tabs 06/03/24 levofloxacin 500 mg tablet 500 mg PO Q48H 14 days #7 tabs 06/24/24 Allergies Allergy/AdvReac Type Severity Reaction Status Date / Time morphine Allergy ALGY-Difficulty Verified 09/12/24 20:19 Breathing sulfamethoxazole Allergy ADR-Vomitin Verified 09/12/24 20:19 [From Bactrim] g trimethoprim [From Bactrim] Allergy ADR-Vomitin Verified 09/12/24 20:19 g PFSH ED 2 PFSH: Medical History Suicide attempt Urinary retention Septic prepatellar bursitis of left knee Chronic pain Hyperglycemia Anemia of chronic disease Insomnia GERD (gastroesophageal reflux disease) ALEJANDRO (generalized anxiety disorder) C. 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 CKD (chronic kidney disease) stage 2, GFR 60-89 ml/min baseline Cr is around 1.0 Diabetic foot ulcer s/p surgical intervention and eventual amputation Hyperlipidemia Coronary artery disease hx of stenting Diabetic gastroparesis Diabetes mellitus type 1 diagnosed age 15, history of peripheral neuropathy, gastroparesis and nephropathy Surgical History Hx of angioplasty H/O esophagogastroduodenoscopy (12/31/20) Bile reflux gastritis, grade B esophagitis Hx of cholecystectomy History of amputation of right forefoot Below-knee amputation of left lower extremity S/P percutaneous endoscopic gastrostomy (PEG) tube placement H/O exploratory laparotomy x 3 Previous section x 3 S/P coronary artery stent placement x 1 Family History Unknown Diabetes extensive, type II Other Congestive heart failure (CHF) Social History Smoking and tobacco/nicotine status: former use of tobacco/nicotine Quit status (tobacco/nicotine): has quit using Former quit date comment: 15 yrs ago Alcohol intake: former Former alcohol use details: 15 yrs ago Substance/Drug Use: current Substance/Drug use frequency: daily Household members: spouse Marital status: Current occupation: disabled Sexually active: Yes (1, ) Course 2 Vital Signs: Vital signs: Vital Signs Temperature 99.0 F 09/12/24 20:13 Pulse Rate 91 09/13/24 02:21 Respiratory Rate 20 H 09/13/24 02:50 Blood Pressure 155/70 09/13/24 02:30 Pulse Oximetry 99 09/13/24 02:21 Oxygen Delivery Me thod Room Air 09/13/24 01:34 MDM - Wound/Laceration Medical Decision Making Patient was found to have a large 10 x 7 cm abscess involving her left BKA stump. Other findings suggestive of osteomyelitis although could reflect chronic osteomyelitis. We had originally spoke to Dr. Eli who recommended transferring patient. I spoke to Dr. Perry. Ultimately we have orthopedics, general surgery, hospitalist, infectious disease and I do not see why patient cannot be treated here at [facility]. Dr. Perry was able to speak to Dr. Nelson who graciously agreed to consult on the patient for potential drainage of abscess if needed. Dr. Perry also spoke to hospitalist for admission. Blood/wound cultures have been obtained. She was started on IV antibiotics. This patient was originally seen by Mrs. Ding?ISRA De Oliveira? I agree with her history, evaluation, and treatment. Lab Data 09/12/24 21:12 09/12/24 21:12 Radiology Impressions Lower Extremity CT 09/12/24 22:16 IMPRESSION: 1. Extensive soft tissue infection with suspected large prepatellar/infrapatellar abscess. 2. Soft tissue ulceration with findings compatible with osteomyelitis of the distal tibial stump. Laboratory Results WBC 11.01 10^3/uL (3.29-11.43) 09/12/24 21:12 RBC 3.11 10^6/uL (3.85-5.65) L 09/12/24 21:12 Hgb 8.90 g/dL (11.27-16.99) L 09/12/24 21:12 Hct 28.4 % (36-47) L 09/12/24 21:12 MCV 91.3 fl (85-98) 09/12/24 21:12 MCH 28.6 pg (27-33) 09/12/24 21:12 MCHC 31.3 g/dL (30-55) 09/12/24 21:12 RDW 15.7 % (12.1-15.1) H 09/12/24 21:12 Plt Count 373 10^3/cmm (157-399) 09/12/24 21:12 MPV 9.4 fL (7.4-10.4) 09/12/24 21:12 Neut % (Auto) 81.1 % 09/12/24 21:12 Lymph % (Auto) 11.5 % 09/12/24 21:12 Rich % (Auto) 5.6 % 09/12/24 21:12 Eos % (Auto) 0.5 % 09/12/24 21:12 Baso % (Auto) 0.5 % 09/12/24 21:12 Neut # (Auto) 8.92 10^3/uL (1.8-7.7) H 09/12/24 21:12 Lymph # (Auto) 1.3 10^3/uL (0.8-4.8) 09/12/24 21:12 Rich # (Auto) 0.6 10^3/uL (0.2-0.9) 09/12/24 21:12 Eos # (Auto) 0.1 10^3/uL (0.0-0.8) 09/12/24 21:12 Baso # (Auto) 0.1 10^3/uL (0.0-0.1) 09/12/24 21:12 Nucleated RBC % (auto) 0 % 09/12/24 21:12 Nucleated RBCs # 0.0 /100WBC 09/12/24 21:12 Sodium 131 mmol/L (136-145) L 09/12/24 21:12 Potassium 3.9 mmol/L (3.5-5.1) 09/12/24 21:12 Chloride 98 mmol/L (98-107) 09/12/24 21:12 Carbon Dioxide 18 mmol/L (22-29) L 09/12/24 21:12 Anion Gap 18.9 (5-19) 09/12/24 21:12 BUN 39 mg/dL (6-20) H 09/12/24 21:12 Creatinine 1.6 mg/dL (0.5-0.9) H 09/12/24 21:12 GFR Calculation 34.7 mL/min (90-130) L 09/12/24 21:12 Glucose 117 mg/dL (65-115) H 09/12/24 21:12 Calculated Osmolality 282 mOsm/kg (285-295) L 09/12/24 21:12 Lactic Acid 1.0 mmol/L (0.5-2.2) 09/12/24 21:12 Calcium 8.5 mg/dL (8.5-10.5) 09/12/24 21:12 Total Bilirubin 0.3 mg/dL (0.15-1.2) 09/12/24 21:12 AST 53 U/L (0-32) H 09/12/24 21:12 ALT 54 U/L (0-33) H 09/12/24 21:12 Alkaline Phosphatase 254 U/L (35-105) H 09/12/24 21:12 C-Reactive Protein 71.2 mg/L (0.0-4.9) H 09/12/24 21:12 Total Protein 7.0 g/dL (6.6-8.7) 09/12/24 21:12 Albumin 3.5 g/dL (3.5-5.2) 09/12/24 21:12 Globulin 3.5 g/dL (1.3-4.6) 09/12/24 21:12 Discharge Plan Discharge Patient Disposition: Admitted As Inpatient Admit Provider: Christel Vickers Clinical Impression: Infection of amputation stump, Noncompliance Low back pain Qualifiers: Chronicity: unspecified Back pain laterality: unspecified Sciatica presence: u nspecified whether sciatica present Qualified Code(s): M54.50 - Low back pain, unspecified Chronic kidney disease Qualifiers: Chronic kidney disease stage: unspecified stage Qualified Code(s): N18.9 - Chronic kidney disease, unspecified Condition: Stable Coding Level of Care Code ED Planner/Scheduler for Kim Mitchell
[2024-09-12] MEDS: HYDROmorphone 1 mg/mL INJ 1 mL 0.5 MG IVP (22:44)
[2024-09-12] MEDS: ondansetron 2 mg/ML SDV 2 mL 4 MG IVP (22:44)
[2024-09-13] VITALS (27 sets, daily range): BP systolic 135–189; BP diastolic 70–101; PULSE 85–104; RESP 15–21; TEMP 36.8–37.8; O2SAT 94–100
[2024-09-13] MEDS: HYDROmorphone 1 mg/mL INJ 1 mL 0.5 MG IVP (00:10)
[2024-09-13] MEDS: ondansetron 2 mg/ML SDV 2 mL 4 MG IVP ×2 (00:30→18:06)
--- NOTE | 2024-09-13 00:32 | P.HP_ITS ---
Providers/Chief Complaint 2 Admitting Physician: Dr. Nishi Vickers Primary Care Provider: Monika Simpson MD Chief Complaint: Pain from Pelvic area down History of Present Illness Cherrie Solomon is a 44 year old female b/l BKA (L. in 07/2019 and the R. in 04/2023) due to diabetic osteomyelitis, DM2 but not on meds due to weight loss, diabetic retinopathy (now legally blind), CKDIIIB, diabetic gastroparesis, HTN, HLD, Depression, Generalized Anxiety d/o, Insomnia, who was brought to the ED on the night of 09/12/2025 w/ complaints of burning, throbbing pain in her lower pelvic area and down her legs. The pain states that her L. stump was drained in 05/2024 and a wound vac was placed but it was not successful, so Dr. Rainey wanted the site revevaluated to see whether some of the bone could be trimmed. The stump has been draining since her I&D in 05/2024. She was referred to different places including [facility], but she was rejected in 06/2024. 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 She states that for the last 2 nights, her stump has been draining has been painful, between and 05/28. She states that the lateral aspect of her L. leg feels red and swollen. She complains of a mass on her right knee that is chronic, but she feels that it has gotten bigger and worsened. She endorses a subjective fever of 99.9F, chills, & poor appetite. She denies dizziness, light headedness, GI or symptoms. In the ED, her vital signs were significant for tachycardia and elevated BP as high as 178/101 mmHg. She had no leukocytosis, but was hyponatremic to 131, with an anion gap metabolic acidosis of 15 and a creatinine of 1.6. Lactic acid of 1. She also had elevated transaminases. A L. lower extremity CT scan of the knee was done that showed an approximately 10cm x 7cm prepatellar/infrapatellar abscess and soft tissue ulceration with findings compatible with osteomyelitis of the distal tibial stump. She was given 4 mg Zofran IVP x 2, 0.5 mg of Dilaudid x 2, initiated on vancomycin and Zosyn and admitted for further evaluation. General surgeon on-call was consulted by the ED physician who will see the patient. Review of Systems 2 Const: Reports: fever(s), chills, change in appetite (poor in the last 2 days), fatigue and malaise Eyes: Reports: change in vision and blurry vision (chronic retinopathy) ENMT: Reports: nasal congestion; Denies: odynophagia, ear or mastoid pain, ear discharge or nasal discharge Card: Denies: chest pain, palpitations, lightheadedness or syncope Resp: Denies: dyspnea, productive cough, non-productive cough or wheezing GI: Reports: vomiting; Denies: abdominal pain, nausea, diarrhea, constipation, hematochezia or melena : Denies: difficulty voiding, dysuria, urinary frequency, urinary urgency or hematuria Musc: Reports: extremity pain (b/l knees) Neuro: Reports: headache(s) and other (syncope); Denies: dizziness Psych: Denies: anxiety, depression, suicidal ideation or homicidal ideation Endo: Reports: cold intolerance Keith/Lymph: Denies: easy bruising Medications/Allergies Home Medications Medication Instructions Recorded Confirmed Last Taken Type pregabalin 50 mg capsule 50 mg PO BID 05/17/24 06/24/24 05/16/24 History metoclopramide HCl 10 mg tablet 10 mg PO QID PRN Constipation #1 05/19/24 06/24/24 05/16/24 Rx tab cyclobenzaprine 10 mg tablet 10 mg PO TID #30 tabs 06/03/24 06/24/24 Unknown Rx duloxetine 20 mg capsule,delayed 20 mg PO BID 30 days #60 caps 06/03/24 06/24/24 Unknown Rx release hydroxyzine pamoate 25 mg capsule 50 mg (2 x 25 mg) PO Q6H PRN 06/03/24 06/24/24 Unknown Rx Anxiety 30 days #120 caps pantoprazole 40 mg tablet,delayed 40 mg PO DAILY 30 days #30 tabs 06/03/24 06/24/24 Unknown Rx release paroxetine HCl 20 mg tablet 40 mg (2 x 20 mg) PO DAILY 30 days 06/03/24 06/24/24 Unknown Rx #60 tabs ropinirole 1 mg tablet 1 mg PO BEDTIME 30 days #30 tabs 06/03/24 06/24/24 Unknown Rx levofloxacin 500 mg tablet 500 mg PO Q48H 14 days #7 tabs 06/24/24 06/24/24 Unknown Rx Allergies Allergy/AdvReac Type Severity Reaction Status Date / Time morphine Allergy ALGY-Difficulty Verified 09/12/24 20:19 Breathing sulfamethoxazole Allergy ADR-Vomitin Verified 09/12/24 20:19 [From Bactrim] g trimethoprim [From Bactrim] Allergy ADR-Vomitin Verified 09/12/24 20:19 g PFSH Acute 2 PFSH: Medical History Suicide attempt Urinary retention Septic prepatellar bursitis of left knee Chronic pain Hyperglycemia Anemia of chronic disease Insomnia GERD (gastroesophageal reflux disease) ALEJANDRO (generalized anxiety disorder) C. 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 CKD (chronic kidney disease) stage 2, GFR 60-89 ml/min baseline Cr is around 1.0 Diabetic foot ulcer s/p surgical intervention and eventual amputation Hyperlipidemia Coronary artery disease hx of stenting Diabetic gastroparesis Diabetes mellitus type 1 diagnosed age 15, history of peripheral neuropathy, gastroparesis and nephropathy Surgical History Hx of angioplasty H/O esophagogastroduodenoscopy (12/31/20) Bile reflux gastritis, grade B esophagitis Hx of cholecystectomy History of amputation of right forefoot Below-knee amputation of left lower extremity S/P percutaneous endoscopic gastrostomy (PEG) tube placement H/O exploratory laparotomy x 3 Previous section x 3 S/P coronary artery stent placement x 1 Family History Unknown Diabetes extensive, type II Other Congestive heart failure (CHF) Social History Smoking and tobacco/nicotine status: former use of tobacco/nicotine Quit status (tobacco/nicotine): has quit using Former quit date comment: 15 yrs ago Alcohol intake: former Former alcohol use details: 15 yrs ago Substance/Drug Use: current Substance/Drug use frequency: daily Substance/Drug use type: Marijuana Household members: spouse Marital status: Current occupation: disabled Sexually active: Yes (1, ) Female Reproductive History: Spontaneous abortions: No Vitals/I&O/Wt Last Vital Signs Temp 99.0 F 09/12/24 20:13 Pulse 116 H 09/12/24 20:13 Resp 18 09/13/24 00:10 BP 145/80 09/13/24 00:15 Pulse Ox 97 09/13/24 00:10 O2 Del Method Room Air 09/12/24 20:13 09/12/24 09/12/24 09/13/24 14:59 22:59 06:59 Intake Total 0 / 0 Balance 0 / 0 Weight last 48 hrs Weight 65.771 kg Physical Exam 2 Const: GENERAL APPEARANCE: cooperative and comfortable O RIENTATION/CONSCIOUSNESS: Yes awake, Yes oriented to person, Yes oriented to place and Yes oriented to time HENMT: HEAD & SCALP: normocephalic and atraumatic NOSE: Normal external nose present EXTERNAL EAR: Yes external ears normal MOUTH: Normal oral and palatal mucosa present THROAT: posterior oropharynx normal Eye: OTHER: PERRL, EOMI, normal conjunctiva bilaterally Neck/C-Spine: GENERAL: Yes normal visual inspection and Yes trachea midline THYROID: Thyroid normal CAROTIDS: No bruit CERVICAL SPINE: Yes cervical ROM normal Lymph: OTHER: No cervical or supraclavicular LAD. Resp: OTHER: CTAB, no wheezes rales or rhonchi. Cardio: OTHER: 2/6 nonradiating systolic murmur in the RUSB, and LUSB. GI: OTHER: BS+, NT, ND, no guarding, no rigidity, no rebound tenderness, no hepatosplenomegaly. Previous site of the PEG tube noted-healed Extremity: NARRATIVE EXTREMITY EXAM: b/l BKA. L. BKA stump w/ stage III ulcer and draining purulence w/ erythema, warmth and swelling up the lateral aspect of the L. leg. R. BKA stump with large soft mass GENERAL: No clubbing, No cyanosis and No edema Neuro: CRANIAL NERVES: Yes CN normal except as noted SPEECH: speech normal SENSORY EXAM: No sensory level loss detected MOTOR EXAM: 5/5 motor strength present throughout Psych: APPEARANCE: Yes grossly normal ATTITUDE: Yes calm and Yes engaged ACTIVITY/MOTOR BEHAVIOR: Yes appropriate eye contact SPEECH: Yes normal speech MOOD & AFFECT: Yes euthymic mood THOUGHT PROCESS: Normal thought process present THOUGHT CONTENT: Yes Normal thought content present A TTENTION/CONCENTRATION: Yes attention grossly intact Skin: NARRATIVE SKIN EXAM: See the section on extremity. Data 09/12/24 21:12 09/12/24 21:12 Micro: Microbiology 09/12/24 21:12 Blood Culture - Preliminary Blood SPECIMEN COLLECTED 09/12/24 21:12 Blood Culture - Preliminary Blood SPECIMEN COLLECTED A&P Assessment and plan (1) Sepsis: (2) Infection of amputation stump, left lower extremity: Plan Cherrie Solomon is a 44 year old female b/l BKA (L. in 07/2019 and the R. in 04/2023) due to diabetic osteomyelitis, DM2 but not on meds due to weight loss, diabetic retinopathy (now legally blind), CKDIIIB, diabetic gastroparesis, HTN, HLD, Depression, Generalized Anxiety d/o, Insomnia, who was brought to the ED on the night of 09/12/2025 w/ complaints of burning, throbbing pain in her lower pelvic area and down her legs. #Sepsis: Due to L. LE cellulitis and asbscess #L. BKA stump cellulitis and abscess #Concern for chronic osteomyelitis - F/u BCx and wound cx done in the ED. - start 1L NS at 250cc/hr, Vanc/Zosyn. #R. BKA mass on the knee: - Defer to Surgery to evaluate. #Transaminases: Monitor response after fluid administration. #CKDIIIB: Montior renal fxn. #HTN: Hold home meds at this time. #HLD?: She says she does not have hyperlipidemia; although, it is in her chart. #DM2: She states that she no longer takes medications -Will monitor blood glucose. Follow-up A1c. Hypoglycemic protocol ordered. #Diabetic gastroparesis -Resume Reglan #Diabetic Neuropathy: Resume home meds: Duloxetin & Pregabalin # Depression, Generalized Anxiety d/o, Insomnia: On Paroxetine also - held #She says that she also has a diagnosis of bipolar disorder #Resume Ropinirole and Cylobenzaprine - Phantom leg? #GERD: Resume home Pantoprazole. #Anemia of chronic disease: Monitor cbc DVT ppx: Lovenox GI ppx: PPI ordered Attestations 2 Medical Necessity Statement*: The patient needs to be hospitalized for greater than 2 midnights for sepsis, left BKA stump cellulitis and abscess with concern for chronic osteomyelitis, possibly requiring surgical intervention. Time Spent in Patient Care: >70mins was spent on chart review, patient interview chart review, patient interview and physical exam, lab/image review, plan formulation and coordination of care. Diagnoses Sepsis A41.9 Infection of amputation stump, left lower extremity T87.44
[2024-09-13] MEDS: piperacillin-tazobactam 3.375 GM in sodium chloride 0.9% (plus) 50 ML IV ×3 (01:21→18:07)
[2024-09-13] MEDS: vancomycin 1,250 MG/250 ML PIGGYBACK 166.67 MG IV (02:18)
[2024-09-13] MEDS: HYDROmorphone 1 mg/mL INJ 1 mL IVP ×5 (02:50→21:53)
--- NOTE | 2024-09-13 03:02 | PC.NURSE ---
Patient requesting two cokes, specifically asking for regular, not diet. Patient educated on importance of blood sugar control with diabetes. Patient states well I can't do that aspertame, it makes me sick.
[2024-09-13 03:04] LABS: Glucose Point of Care 138 mg/dL (70-110)
--- NOTE | 2024-09-13 03:06 | PC.NURSE ---
Bed scale is showing patient to be 80 pounds. Patient and myself both agree that this cannot be accurate. Patient states I'm between 135 and 145 pounds. Patient states she is visually impaired. Patient states she can see shadows, but not colors.
--- NOTE | 2024-09-13 03:31 | PC.NURSE ---
0215: Patient's left leg wound covered with telfa, kerlix and secured with silk tape.
[2024-09-13] MEDS: oxyCODONE 5 mg IR Tab/Cap PO ×4 (04:20→20:20)
[2024-09-13] MEDS: sodium chloride 0.9% 1,000 ML 250 ML IV (05:49)
[2024-09-13 05:57] LABS: INR 0.91 (0.8-1.2)
[2024-09-13 06:06] LABS: Magnesium 1.7 mg/dL (1.7-2.3)
[2024-09-13 06:10] LABS: Alanine Aminotransferase 49 U/L (0-33); Albumin Level 3.4 g/dL (3.5-5.2); Alkaline Phosphatase 257 U/L (35-105); Aspartate Amino Transferase 44 U/L (0-32); Blood Urea Nitrogen 31 mg/dL (6-20); Calcium 8.4 mg/dL (8.5-10.5); Carbon Dioxide 19 mmol/L (22-29); Chloride 99 mmol/L (98-107); Creatinine Clr Calc Pharmacy 42.4712; Globulin 2.6 g/dL (1.3-4.6); Glomerular Filtration Rate 34.7 mL/min (90-130); Glucose 150 mg/dL (65-115); Osmolality Calculated 283 mOsm/kg (285-295); Sodium 132 mmol/L (136-145); Total Bilirubin 0.5 mg/dL (0.15-1.2)
[2024-09-13 06:19] LABS: Estmated Average Glucose 108; Hemoglobin A1C 5.4 % (4.0-6.0)
--- NOTE | 2024-09-13 06:25 | PC.NURSE ---
Dr. Srivastava gave order for patient to be able to eat and drink. Covaderm placed on wound at this time until further wound care orders obtained.
[2024-09-13 06:44] LABS: Gamma Glutamyl Transferase 194 U/L (5-36)
[2024-09-13 06:54] LABS: Glucose Point of Care 192 mg/dL (70-110)
--- NOTE | 2024-09-13 08:23 | PHA.VACGOAL ---
Vancomycin Goal - Goal Vancomycin Goal:: 15-20 mg/L Vancomycin Indication:: Osteo (SEPSIS) - Therapy Current therapy:: Pip/Tazo Day of therpy:: Day []of [] . Actual body weight (kg): 61.235 kg - Data Labs: WBC 11.01 10^3/uL (3.29-11.43) 09/12/24 21:12 RBC 3.11 10^6/uL (3.85-5.65) L 09/12/24 21:12 Hgb 8.90 g/dL (11.27-16.99) L 09/12/24 21:12 Hct 28.4 % (36-47) L 09/12/24 21:12 MCV 91.3 fl (85-98) 09/12/24 21:12 MCH 28.6 pg (27-33) 09/12/24 21:12 MCHC 31.3 g/dL (30-55) 09/12/24 21:12 RDW 15.7 % (12.1-15.1) H 09/12/24 21:12 Sodium 132 mmol/L (136-145) L 09/13/24 05:08 Potassium 4.0 mmol/L (3.5-5.1) 09/13/24 05:08 Chloride 99 mmol/L (98-107) 09/13/24 05:08 Carbon Dioxide 19 mmol/L (22-29) L 09/13/24 05:08 Anion Gap 18.0 (5-19) 09/13/24 05:08 BUN 31 mg/dL (6-20) H 09/13/24 05:08 Creatinine 1.6 mg/dL (0.5-0.9) H 09/13/24 05:08 GFR Calculation 34.7 mL/min (90-130) L 09/13/24 05:08 Treatment plan:: new consult Regimen:: New start vancomycin for possible osteomyelitis/sepsis. Received 2000 mg load dose. Started on maintenance dose of 750 mg q24h based on population based pharmacokinetic nomogram.
--- NOTE | 2024-09-13 08:34 | PC.PHAR ---
Pt verified that she takes all these medications but has been out of them since May 2024, and needs them filled and delivered to her room via [facility] or bedside delivery.
[2024-09-13] MEDS: cyclobenzaprine 10 mg Tablet PO ×3 (09:47→20:20)
[2024-09-13] MEDS: VANCOMYCIN ADD-Vantage 750 MG in 0.9% NaCl ADD-Vantage 250 ML 250 MG IV (09:47)
[2024-09-13] MEDS: docusate sodium 100 mg Capsule 200 MG PO (09:48)
[2024-09-13] MEDS: duloxetine 20 mg Capsule PO ×2 (09:48→18:06)
[2024-09-13] MEDS: pregabalin 50 mg Capsule PO ×2 (09:48→18:06)
[2024-09-13] MEDS: pantoprazole DR 40 mg Tablet PO (09:48)
[2024-09-13] MEDS: sennosides 8.6 mg Tablet 17.2 MG PO (09:48)
[2024-09-13 12:37] LABS: Glucose Point of Care 127 mg/dL (70-110)
--- NOTE | 2024-09-13 13:03 | P.CONIM_ITS ---
Providers/Reason For Consult 2 Consulting Physician/Specialty*: Dr. Justin Nelson, DO/General Surgery Reason for Consult*: Left BKA stump infection Attending Physician: Sonali Emery MD Primary Care Provider: Monika Simpson MD History of Present Illness History of Present Illness Cherrie Solomon is a 44 year old female who is a type I diabetic with complications including blindness and bilateral below-knee amputations. In May of last year she underwent incision and drainage of infection of her left BKA stump. She reports that she crawls around at her house and puts pressure on her stumps because it is easier to take care of her grandchild than being on a wheelchair. She reports that for the last few days she started having left lower extremity pain. Palpation makes the pain worse. Nothing makes pain better. The pain does not radiate. She reports subjective fevers. A CT of the left lower extremity shows skin ulceration at the distal BKA stump on the left along with underlying phlegmon and possible osteomyelitis. She also has a large compressible prepatellar mass on the right. Since yesterday she started getting prepatellar fluid on the left as well Review of Systems 2 General: Reports: 10 or more systems reviewed and unremarkable except in HPI and below Medications/Allergies Home Medications Medication Instructions Recorded Confirmed Last Taken Type pregabalin 50 mg capsule 50 mg PO BID 05/17/24 09/13/24 05/16/24 History metoclopramide HCl 10 mg tablet 10 mg PO QID PRN Constipation #1 05/19/24 09/13/24 05/16/24 Rx tab cyclobenzaprine 10 mg tablet 10 mg PO TID #30 tabs 06/03/24 09/13/24 Unknown Rx duloxetine 20 mg capsule,delayed 20 mg PO BID 30 days #60 caps 06/03/24 09/13/24 Unknown Rx release hydroxyzine pamoate 25 mg capsule 50 mg (2 x 25 mg) PO Q6H PRN 06/03/24 09/13/24 Unknown Rx Anxiety 30 days #120 caps pantoprazole 40 mg tablet,delayed 40 mg PO DAILY 30 days #30 tabs 06/03/24 09/13/24 Unknown Rx release paroxetine HCl 20 mg tablet 40 mg (2 x 20 mg) PO DAILY 30 days 06/03/24 09/13/24 Unknown Rx #60 tabs ropinirole 1 mg tablet 1 mg PO BEDTIME 30 days #30 tabs 06/03/24 09/13/24 Unknown Rx amlodipine 5 mg tablet 5 mg PO DAILY 09/13/24 09/13/24 Unknown History naloxone 4 mg/actuation nasal See Rx Instructions .Route .COMPLEX 09/13/24 09/13/24 Unknown History spray (Narcan) quetiapine 100 mg tablet 100 mg PO BEDTIME 09/13/24 09/13/24 Unknown History Allergies Allergy/AdvReac Type Severity Reaction Status Date / Time morphine Allergy ALGY-Difficulty Verified 09/12/24 20:19 Breathing sulfamethoxazole Allergy ADR-Vomitin Verified 09/12/24 20:19 [From Bactrim] g trimethoprim [From Bactrim] Allergy ADR-Vomitin Verified 09/12/24 20:19 g Current Medications Generic Name Dose Route Start Last Admin Trade Name Freq PRN Reason Stop Dose Admin Cyclobenzaprine HCl 10 mg 09/13/24 09:00 09/13/24 09:47 Cyclobenzaprine 10 Mg Tablet PO 10 mg TID DAWSON Administration Docusate Sodium 200 mg 09/13/24 09:00 09/13/24 09:48 Docusate Sodium 100 Mg Capsule PO 200 mg DAILY DAWSON Administration Duloxetine HCl 20 mg 09/13/24 09:00 09/13/24 09:48 Duloxetine 20 Mg Capsule PO 20 mg BID DAWSON Administration Hydromorphone HCl 1 mg 09/13/24 02:38 09/13/24 11:18 Hydromorphone 1 Mg/Ml Inj 1 Ml IVP 1 mg Q4H PRN Administration SEVERE PAIN Piperacillin Sod/Tazobactam 50 mls @ 12.5 mls/hr 09/13/24 10:30 09/13/24 11:18 Sod 3.375 gm/ Sodium Chloride IV 12.5 mls/hr Q8H DAWSON Administration Oxycodone HCl 5 mg 09/13/24 02:47 09/13/24 10:39 Oxycodone 5 Mg Ir Tab/Cap PO 5 mg Q6H PRN Administration SEVERE PAIN Pantoprazole Sodium 40 mg 09/13/24 09:00 09/13/24 09:[address] 40 Mg Tablet PO 40 mg DAILY DAWSON Administration Pregabalin 50 mg 09/13/24 09:00 09/13/24 09:48 Pregabalin 50 Mg Capsule PO 50 mg BID DAWSON Administration Senna 17.2 mg 09/13/24 09:00 09/13/24 09:48 Sennosides 8.6 Mg Tablet PO 17.2 mg DAILY DAWSON Administration PFSH Acute 2 PFSH: Medical History Suicide attempt Urinary retention Septic prepatellar bursitis of left knee Chronic pain Hyperglycemia Anemia of chronic disease Insomnia GERD (gastroesophageal reflux disease) ALEJANDRO (generalized anxiety disorder) C. 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 CKD (chronic kidney disease) stage 2, GFR 60-89 ml/min baseline Cr is around 1.0 Diabetic foot ulcer s/p surgical intervention and eventual amputation Hyperlipidemia Coronary artery disease hx of stenting Diabetic gastroparesis Diabetes mellitus type 1 diagnosed age 15, history of peripheral neuropathy, gastroparesis and nephropathy Surgical History Hx of angioplasty H/O esophagogastroduodenoscopy (12/31/20) Bile reflux gastritis, grade B esophagitis Hx of cholecystectomy History of amputation of right forefoot Below-knee amputation of left lower extremity S/P percutaneous endoscopic gastrostomy (PEG) tube placement H/O exploratory laparotomy x 3 Previous section x 3 S/P coronary artery stent placement x 1 Family History Unknown Diabetes extensive, type II Other Congestive heart failure (CHF) Social History Smoking and tobacco/nicotine status: former use of tobacco/nicotine Quit status (tobacco/nicotine): has quit using Former quit date comment: 15 yrs ago Alcohol intake: former Former alcohol use details: 15 yrs ago Substance/Drug Use: current Substance/Drug use frequency: daily Substance/Drug use type: Marijuana Household members: spouse Marital status: Current occupation: disabled Sexually active: Yes (1, ) Female Reproductive History: Spontaneous abortions: No Vitals/I&O/Wt Last Vital Signs Temp 98.4 F 09/13/24 12:00 Pulse 91 09/13/24 12:00 Resp 17 09/13/24 12:00 BP 170/86 09/13/24 12:00 Pulse Ox 97 09/13/24 12:00 O2 Del Method Room Air 09/13/24 12:00 09/12/24 09/13/24 09/13/24 22:59 06:59 14:59 Intake Total 0 / 0 1100 / 1100 1692 / 1692 Output Total / Balance 0 / 0 1100 / 1100 1691 / 1691 Weight last 48 hrs Weight 135 lb Weight 135 lb Weight 145 lb Physical Exam 2 Narrative: General : Patient is well developed , no acute distress, oriented x3 Head : Normal cephalic, a-traumatic. Ears : Pinnae and external canal are normal. Hearing is normal. Eyes : PERRLA, Sclera and injection are normal. No conjunctival discharge. Nose : Mucous membranes are without erythema. Throat : buccal mucosa is normal, gums are without significant recession or hypertrophy. Lungs : Equal chest rise bilaterally, no use of accessory muscles, trachea is midline. Cor : Rate and rhythm are normal. Abdomen : Soft, ND, NT, no g/r/m Extremities : There is an ulcer at the left BKA stump with no significant surrounding erythema. I do not palpate an abscess. There is prepatellar fluid. Right lower extremity has a large prepatellar fluid collection versus mass Back : non-tender to palpation, no CVA tenderness. Neuro : CN II - XII intact, Upper and lower extremities have equal and full strength Data 09/12/24 21:12 09/13/24 05:08 Micro: Microbiology 09/12/24 21:12 Blood Culture - Preliminary Blood SPECIMEN COLLECTED 09/12/24 21:12 Blood Culture - Preliminary Blood SPECIMEN COLLECTED A&P Assessment and plan (1) Infection of amputation stump, left lower extremity: (2) Mass of right lower extremity: Plan Patient ate breakfast and lunch today, carbohydrate consistent diet. I will order a CT of the right lower extremity to investigate this prepatellar mass. I also ordered a repeat CT of the left lower extremity as she reports this prepatellar fluid collection is new. N.p.o. after midnight. Possible wound exploration versus incision and drainage left lower extremity tomorrow Antibiotics medical management per primary Coding Level of Care Code 85660 Diagnoses Infection of amputation stump, left lower extremity T87.44 Mass of right lower extremity R22.41
--- NOTE | 2024-09-13 16:00 | PM.MISC ---
Miscellaneous Note Purpose of Documentation: Overnight labs and H&P reviewed. Continue iv zosyn and vancomycin. Awaiting CT of right leg. Appreciate surgery recommendations.
[2024-09-13 17:50] LABS: Glucose Point of Care 104 mg/dL (70-110)
[2024-09-13] MEDS: ropinirole 1 mg Tablet PO (20:20)
[2024-09-13 20:25] LABS: Glucose Point of Care 128 mg/dL (70-110)
[2024-09-14] VITALS (21 sets, daily range): BP systolic 131–169; BP diastolic 69–98; PULSE 82–115; RESP 12–18; TEMP 36.3–37.1; O2SAT 93–100
[2024-09-14] MEDS: ondansetron 2 mg/ML SDV 2 mL 4 MG IVP ×2 (01:08→13:10)
[2024-09-14] MEDS: VANCOMYCIN ADD-Vantage 750 MG in 0.9% NaCl ADD-Vantage 250 ML 250 MG IV (01:14)
[2024-09-14] MEDS: piperacillin-tazobactam 3.375 GM in sodium chloride 0.9% (plus) 50 ML IV ×3 (02:23→21:40)
[2024-09-14] MEDS: HYDROmorphone 1 mg/mL INJ 1 mL IVP ×3 (03:31→21:07)
[2024-09-14 03:55] LABS: Basophils # 0.1 10^3/uL (0.0-0.1); Basophils % 0.3 %; Eosinophils % 0.1 %; Hematocrit 29.7 % (36-47); Lymphocytes # 1.3 10^3/uL (0.8-4.8); Lymphocytes % 9.2 %; Mean Corpuscular HGB Conc 32.3 g/dL (30-55); Mean Corpuscular Hemoglobin 29.3 pg (27-33); Mean Corpuscular Volume 90.5 fl (85-98); Mean Platelet Volume 8.4 fL (7.4-10.4); Monocytes # 0.7 10^3/uL (0.2-0.9); Neutrophils # 12.22 10^3/uL (1.8-7.7); Neutrophils % 84.8 %; Nucleated Red Blood Cells % 0 %; Platelet Count 497 10^3/cmm (157-399); Red Blood Count 3.28 10^6/uL (3.85-5.65); Red Cell Distribution Width 15.4 % (12.1-15.1); White Blood Count 14.42 10^3/uL (3.29-11.43)
--- NOTE | 2024-09-14 04:09 | PC.NURSE ---
BEHAVIOR NOTE Patient demonstrating non-compliance with medical care being provided. Continues to unhook her IV during treatment after being educated on the importance of finishing her antibiotics as well as only letting nursing staff handle IV. Patient continues to ambulate and crawl on b/l BKAs despite education being provided on the importance of keeping her dressings clean and not introducing bacteria to site. Patient observed to be standing in doorway loudly crying and calling out wanting pain meds despite refusing PO pain meds available and demanding IVP Dilaudid that was not yet available
[2024-09-14 04:49] LABS: Magnesium 1.9 mg/dL (1.7-2.3)
[2024-09-14 05:18] LABS: Alanine Aminotransferase 42 U/L (0-33); Albumin Level 3.5 g/dL (3.5-5.2); Alkaline Phosphatase 300 U/L (35-105); Anion Gap 21.8 (5-19); Aspartate Amino Transferase 25 U/L (0-32); Blood Urea Nitrogen 25 mg/dL (6-20); Calcium 9.1 mg/dL (8.5-10.5); Carbon Dioxide 17 mmol/L (22-29); Chloride 99 mmol/L (98-107); Creatinine Clr Calc Pharmacy 42.4712; Globulin 3.9 g/dL (1.3-4.6); Glomerular Filtration Rate 34.7 mL/min (90-130); Glucose 152 mg/dL (65-115); Osmolality Calculated 285 mOsm/kg (285-295); Phosphorus 4.2 mg/dL (2.5-4.5); Potassium 3.8 mmol/L (3.5-5.1); Sodium 134 mmol/L (136-145); Total Bilirubin 0.8 mg/dL (0.15-1.2); Total Protein 7.4 g/dL (6.6-8.7)
--- NOTE | 2024-09-14 06:24 | PC.NURSE ---
Patient came to the nurses station at approx 0600 asking for a drink. This nurse informed her that she is still NPO and educated her on the risks of consuming liquids or food and offered a mouth swab as an alternative. Patient refused the mouth swab and then went down to the nourishment room and grabbed herself a Sprite and proceeded to drink it despite just being educated. This nurse called Dr Vivar and informed him of patient no longer being NPO
--- NOTE | 2024-09-14 08:00 | CT_ITS ---
WS: [id number] Contrast-enhanced CT RIGHT femur TECHNIQUE: Contrast-enhanced CT RIGHT femur with coronal and sagittal reformatted images. CLINICAL INFORMATION: Right BKA with prepatellar fluid/mass DLP: 749.[address] scans at [facility] use at least one of these dose optimization techniques: automated e xposure control; mA and/or kV adjustment per patient size (includes targeted exams where dose is matc hed to clinical indication); or iterative reconstruction. FINDINGS: Prior postoperative changes bilateral BKA's. Diffuse soft tissue edema and cellulitis involving the d istal stump. Soft tissue thickening and induration of the distal stump although no drainable fluid co llection. Bony irregularity with periosteal formation involving the distal tibia stump suspicious for osteomyelitis. Irregular cortical bone formation distally. Associated lucency. Residual fibula has a more normal appearance. Moderate degenerative arthritis RIGHT hip and sacroiliac joint. Large prepatellar fluid collection wi th thick peripheral enhancement suspicious for infectious bursitis considering the degree of enhancem ent and surrounding inflammatory changes. No destructive changes in the patella. CT/CT femur RT w con [id number] IMPRESSION: 1. Cellulitis with suspected osteomyelitis distal tibia stump. No drainable st ump collections. 2. Suspected infectious prepatellar bursitis with diffuse peripheral thick-wal led enhancement. 3. Dense vascular calcification. 4. See additional findings above.
--- NOTE | 2024-09-14 08:00 | CT_ITS ---
WS: [id number] Contrast-enhanced CT LEFT femur TECHNIQUE: Contrast-enhanced CT LEFT femur with coronal and sagittal reformatted images. CLINICAL INFORMATION: Left BKA ulcer and prepatellar fluid COMPARISON: 09/12/2024 DLP: 749.[address] scans at [facility] use at least one of these dose optimization techniques: automated e xposure control; mA and/or kV adjustment per patient size (includes targeted exams where dose is matc hed to clinical indication); or iterative reconstruction. FINDINGS: Diffuse cellulitis with extensive destructive changes involving the distal tibia with associated veronique osteal formation extending into the distal third of the residual tibial shaft. Suspected osteomyeliti s involving the residual distal fibula stump. Fluid with soft tissue edema and induration involving t he soft tissue stump although no well-defined drainable fluid collection. Diffuse cellulitis and subc utaneous edema about the knee. Soft tissue dehiscence of the stump distally. Suspected prepatellar infectious bursitis with thick walled peripheral enhancement and diffuse surrou nding enhancement and edema. No visualized destruction in the underlying patella. Moderate degenerati ve arthritis LEFT hip and sacroiliac joint. Dense vascular calcification. Reactive LEFT pelvic sidewa ll and inguinal lymph nodes. Dense vascular calcification. CT/CT femur LT w con [id number] IMPRESSION: 1. Extensive destructive osteomyelitis involving the residual distal tibial sh aft extending at least one third into the residual shaft. Additional osteomyeli tis distal residual fibula. 2. Dehiscence with cellulitis involving the soft tissue stump. 3. Suspected prepatellar infectious bursitis described above.
[2024-09-14] MEDS: docusate sodium 100 mg Capsule 200 MG PO (09:21)
[2024-09-14] MEDS: sennosides 8.6 mg Tablet 17.2 MG PO (09:21)
[2024-09-14] MEDS: oxyCODONE 5 mg IR Tab/Cap 10 MG PO ×2 (09:22→18:17)
[2024-09-14] MEDS: pantoprazole DR 40 mg Tablet PO (09:23)
[2024-09-14] MEDS: cyclobenzaprine 10 mg Tablet PO ×2 (09:23→21:06)
[2024-09-14] MEDS: pregabalin 50 mg Capsule PO ×2 (09:23→17:46)
[2024-09-14] MEDS: duloxetine 20 mg Capsule PO ×2 (09:23→17:46)
--- NOTE | 2024-09-14 11:30 | PICC.NOTE ---
Referred to vascular access nurse for US guided IV. Right arm assessed. 20 gauge peripheral IV started to right forearm x 1 stick using US guidance. Good blood return noted. Flushes without difficulty. Report given to charge nurse, Marci.
[2024-09-14 11:38] LABS: Glucose Point of Care 163 mg/dL (70-110)
[2024-09-14] MEDS: iohexol 350 mg/mL 500 mL Btl (per mL) IV (13:23)
--- NOTE | 2024-09-14 13:49 | P.PN_ITS ---
Subjective 2 Subjective: Patient seen and examined. She still reports left lower extremity pain to palpation. Vitals/I&O/Wt Last Vital Signs Temp 98.2 F 09/14/24 11:48 Pulse 115 H 09/14/24 11:48 Resp 18 09/14/24 13:02 BP 133/84 09/14/24 11:48 Pulse Ox 100 09/14/24 11:48 O2 Del Method Room Air 09/14/24 11:48 09/13/24 09/14/24 09/14/24 22:59 06:59 14:59 Intake Total 970 / 3104 510 / 3614 0 / 0 Balance 970 / 3103 510 / 3613 0 / 0 Weight last 48 hrs Weight 135 lb Weight 135 lb Weight 145 lb Physical Exam 2 Narrative: General : Patient is well developed , no acute distress, oriented x3 Head : Normal cephalic, a-traumatic. Ears : Pinnae and external canal are normal. Hearing is normal. Eyes : PERRLA, Sclera and injection are normal. No conjunctival discharge. Nose : Mucous membranes are without erythema. Throat : buccal mucosa is normal, gums are without significant recession or hypertrophy. Lungs : Equal chest rise bilaterally, no use of accessory muscles, trachea is midline. Cor : Rate and rhythm are normal. Abdomen : Soft, ND, NT, no g/r/m Extremities : There is an ulcer at the left BKA stump with no significant surrounding erythema. I do not palpate an abscess underlying the ulcer. There is prepatellar fluid. Right lower extremity has a large prepatellar fluid collection versus mass Back : non-tender to palpation, no CVA tenderness. Neuro : CN II - XII intact, Upper and lower extremities have equal and full strength Data 09/14/24 03:37 09/14/24 03:37 Micro: Microbiology 09/12/24 23:25 Gram Stain - Final Leg - Left Wound Culture - Preliminary Coag positive Staphylococcus 09/12/24 21:12 Blood Culture - Preliminary Blood NEGATIVE TO DATE 09/12/24 21:12 Blood Culture - Preliminary Blood NEGATIVE TO DATE A&P Assessment and plan (1) Infection of amputation stump, left lower extremity: (2) Abscess of left lower extremity: (3) Abscess of right lower extremity: (4) Osteomyelitis: Plan Incision and drainage of left lower extremity abscess Incision and drainage of right lower extremity abscess Sharp excisional debridement of left lower extremity wound Possible bone biopsy The risks and benefits of the procedure, including but not limited to, scar, numbness, bleeding, continued infection, need for further surgery, damage to surrounding structures, poor wound healing, were explained to the patient. She is understanding of the risks and wished to proceed Attestations 2 Medical Necessity Statement*: Per primary Coding Level of Care Code 30352 Diagnoses Infection of amputation stump, left lower extremity T87.44 Abscess of left lower extremity L02.416 Abscess of right lower extremity L02.415 Osteomyelitis M86.9
--- NOTE | 2024-09-14 14:11 | P.ANESASSM_ITS ---
Pre-Anesthetic Assessment Height/Weight: Height 1.47 m Weight 61.235 kg Temp Pulse Resp BP Pulse Ox O2 Del Method 98.2 F 115 H 18 133/84 100 Room Air 09/14/24 11:48 09/14/24 11:48 09/14/24 13:02 09/14/24 11:48 09/14/24 11:48 09/14/24 11:48 Operation Date: 09/14/24 14:30 Proposed Procedures p Incision And Drainage- Lower Extremity Abscess , wound debridement(Left) - Justin Nelson DO Familial anesthetic complications: None Was Beta Rozina taken within 24 hours: N/A Was Clonidine taken within 24 hours: N/A Last intake: > 8 hrs Social Tobacco and No alcohol Exam alert, oriented x 3, clear to auscultation bilaterally and regular rate & rhythm Airway Mallampati: Class I Dentition: other (multiple missing/broke/decayed) CV/HEM Hypertension GI Gastroesophageal Reflux Disease gastroparesis Anesthetic Plan ASA status: 4 Anesthesia: General Risk of > 500 ml blood loss (7ml/kg in children): No Medications/Allergies Home Medications Medication Instructions Recorded Confirmed Last Taken Type pregabalin 50 mg capsule 50 mg PO BID 05/17/24 09/13/24 05/16/24 History metoclopramide HCl 10 mg tablet 10 mg PO QID PRN Constipation #1 05/19/24 09/13/24 05/16/24 Rx tab cyclobenzaprine 10 mg tablet 10 mg PO TID #30 tabs 06/03/24 09/13/24 Unknown Rx duloxetine 20 mg capsule,delayed 20 mg PO BID 30 days #60 caps 06/03/24 09/13/24 Unknown Rx release hydroxyzine pamoate 25 mg capsule 50 mg (2 x 25 mg) PO Q6H PRN 06/03/24 09/13/24 Unknown Rx Anxiety 30 days #120 caps pantoprazole 40 mg tablet,delayed 40 mg PO DAILY 30 days #30 tabs 06/03/24 09/13/24 Unknown Rx release paroxetine HCl 20 mg tablet 40 mg (2 x 20 mg) PO DAILY 30 days 06/03/24 09/13/24 Unknown Rx #60 tabs ropinirole 1 mg tablet 1 mg PO BEDTIME 30 days #30 tabs 06/03/24 09/13/24 Unknown Rx amlodipine 5 mg tablet 5 mg PO DAILY 09/13/24 09/13/24 Unknown History naloxone 4 mg/actuation nasal See Rx Instructions .Route .COMPLEX 09/13/24 09/13/24 Unknown History spray (Narcan) quetiapine 100 mg tablet 100 mg PO BEDTIME 09/13/24 09/13/24 Unknown History Allergies Allergy/AdvReac Type Severity Reaction Status Date / Time morphine Allergy ALGY-Difficulty Verified 09/12/24 20:19 Breathing sulfamethoxazole Allergy ADR-Vomitin Verified 09/12/24 20:19 [From Bactrim] g trimethoprim [From Bactrim] Allergy ADR-Vomitin Verified 09/12/24 20:19 g Current Medications Generic Name Dose Route Start Last Admin Trade Name Freq PRN Reason Stop Dose Admin Cyclobenzaprine HCl 10 mg 09/13/24 09:00 09/14/24 09:23 Cyclobenzaprine 10 Mg Tablet PO 10 mg TID DAWSON Administration Docusate Sodium 200 mg 09/13/24 09:00 09/14/24 09:21 Docusate Sodium 100 Mg Capsule PO 200 mg DAILY DAWSON Administration Duloxetine HCl 20 mg 09/13/24 09:00 09/14/24 09:23 Duloxetine 20 Mg Capsule PO 20 mg BID DAWSON Administration Enoxaparin Sodium 40 mg 09/13/24 21:00 09/13/24 20:26 Enoxaparin 40 Mg/0.4 Ml Syringe SUBCUT Not Given Q24H DAWSON Hydromorphone HCl 1 mg 09/14/24 01:19 09/14/24 13:02 Hydromorphone 1 Mg/Ml Inj 1 Ml IVP 1 mg Q8H PRN Administration SEVERE PAIN Vancomycin HCl 750 mg/ Sodium 250 mls @ 250 mls/hr 09/14/24 02:00 09/14/24 02:18 Chloride IV Infused Q24H DAWSON Infusion Piperacillin Sod/Tazobactam 50 mls @ 12.5 mls/hr 09/13/24 10:30 09/14/24 13:32 Sod 3.375 gm/ Sodium Chloride IV 12.5 mls/hr Q8H DAWSON Administration Ondansetron HCl 4 mg 09/13/24 02:47 09/14/24 13:10 Ondansetron 2 Mg/Ml Sdv 2 Ml IVP 4 mg Q6H PRN Administration vomiting, or N/V if npo Oxycodone HCl 10 mg 09/14/24 01:19 09/14/24 09:22 Oxycodone 5 Mg Ir Tab/Cap PO 10 mg Q8H PRN Administration SEVERE PAIN Pantoprazole Sodium 40 mg 09/13/24 09:00 09/14/24 09:[address] 40 Mg Tablet PO 40 mg DAILY DAWSON Administration Pregabalin 50 mg 09/13/24 09:00 09/14/24 09:23 Pregabalin 50 Mg Capsule PO 50 mg BID DAWSON Administration Ropinirole HCl 1 mg 09/13/24 21:00 09/13/24 20:20 Ropinirole 1 Mg Tablet PO 1 mg BEDTIME DAWSON Administration Senna 17.2 mg 09/13/24 09:00 09/14/24 09:21 Sennosides 8.6 Mg Tablet PO 17.2 mg DAILY DAWSON Administration PFS Anesthesia Medical History Suicide attempt Urinary retention Septic prepatellar bursitis of left knee Chronic pain Hyperglycemia Anemia of chronic disease Insomnia GERD (gastroesophageal reflux disease) ALEJANDRO (generalized anxiety disorder) C. 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 CKD (chronic kidney disease) stage 2, GFR 60-89 ml/min baseline Cr is around 1.0 Diabetic foot ulcer s/p surgical intervention and eventual amputation Hyperlipidemia Coronary artery disease hx of stenting Diabetic gastroparesis Diabetes mellitus type 1 diagnosed age 15, history of peripheral neuropathy, gastroparesis and nephropathy Surgical History Hx of angioplasty H/O esophagogastroduodenoscopy (12/31/20) Bile reflux gastritis, grade B esophagitis Hx of cholecystectomy History of amputation of right forefoot Below-knee amputation of left lower extremity S/P percutaneous endoscopic gastrostomy (PEG) tube placement H/O exploratory laparotomy x 3 Previous section x 3 S/P coronary artery stent placement x 1 Family History Unknown Diabetes extensive, type II Other Congestive heart failure (CHF) Social History Smoking and tobacco/nicotine status: former use of tobacco/nicotine Quit status (tobacco/nicotine): has quit using Former quit date comment: 15 yrs ago Alcohol intake: former Former alcohol use details: 15 yrs ago Substance/Drug Use: current Substance/Drug use frequency: daily Substance/Drug use type: Marijuana Household members: spouse Marital status: Current occupation: disabled Sexually active: Yes (1, ) Female Reproductive History Spontaneous abortions: No Data Anesthesia 09/14/24 03:37 09/14/24 03:37 Short CBC 09/12/24 09/14/24 Range/Units 21:12 03:37 WBC 11.01 14.42 H (3.29-11.43) 10^3/uL Hgb 8.90 L 9.60 L (11.27-16.99) g/dL Hct 28.4 L 29.7 L (36-47) % MCV 91.3 90.5 (85-98) fl Plt Count 373 497 H (157-399) 10^3/cmm Neut % (Auto) 81.1 84.8 % Neut # (Auto) 8.92 H 12.22 H (1.8-7.7) 10^3/uL BMP 09/12/24 09/13/24 09/14/24 21:12 05:08 03:37 Sodium 131 L 132 L 134 L Potassium 3.9 4.0 3.8 Chloride 98 99 99 Carbon Dioxide 18 L 19 L 17 L BUN 39 H 31 H 25 H Creatinine 1.6 H 1.6 H 1.6 H Glucose 117 H 150 H 152 H Calcium 8.5 8.4 L 9.1 Liver Function 09/12/24 09/13/24 09/14/24 Range/Units 21:12 05:08 03:37 Total Bilirubin 0.3 0.5 0.8 (0.15-1.2) mg/dL GGT 194 H (5-36) U/L AST 53 H 44 H 25 (0-32) U/L ALT 54 H 49 H 42 H (0-33) U/L Alkaline Phosphatase 254 H 257 H 300 H (35-105) U/L Albumin 3.5 3.4 L 3.5 (3.5-5.2) g/dL Coags 09/12/24 09/13/24 21:12 05:08 PT 13.00 INR 0.91 APTT 34.0 C-Reactive Protein 71.2 H Microbiology 09/12/24 23:25 Gram Stain - Final Leg - Left Wound Culture - Preliminary Coag positive Staphylococcus 09/12/24 21:12 Blood Culture - Preliminary Blood NEGATIVE TO DATE 09/12/24 21:12 Blood Culture - Preliminary Blood NEGATIVE TO DATE Cardiac Studies: 2 No Data to Display
[2024-09-14] MEDS: sodium chloride 0.9% 1,000 ML 30 ML IV (14:30)
--- NOTE | 2024-09-14 14:54 | P.PN_ITS ---
Subjective 2 Subjective: Seen this morning. Patient awaiting CT bilateral legs this morning. She walked over to the nurses station and drank a Sprite. She was post to be n.p.o. at midnight. IV infiltrated and is awaiting to get ultrasound-guided IV so she can have CT scan completed this morning. Patient agreeable to not walk on stumps if she requires any kind of surgical debridement Going forward. Vitals/I&O/Wt Last Vital Signs Temp 98.8 F 09/14/24 14:18 Pulse 95 09/14/24 14:18 Resp 17 09/14/24 14:18 BP 161/98 09/14/24 14:18 Pulse Ox 100 09/14/24 14:18 O2 Del Method Room Air 09/14/24 14:18 09/13/24 09/14/24 09/14/24 22:59 06:59 14:59 Intake Total 970 / 3104 510 / 3614 50 / 50 Balance 970 / 3103 510 / 3613 50 / 50 Weight last 48 hrs Weight 61.235 kg Weight 61.235 kg Weight 65.771 kg Physical Exam 2 Narrative: General: Alert oriented x 3. Standing on the floor by the edge of the bed holding the bedside commode. HEENT: PERRLA, pupils bilaterally equal and reactive, Chest: Normal vesicular breath sounds, no added sounds, equal good air entry bilaterally CVS: S1-S2 regular, no murmurs, no tachycardia, no gallops, no rubs Abdomen: Soft, nontender, bowel sounds present Neuro: No focal deficits grossly Extremities: Unable to examine stumps this morning as patient is standing on them. She is bending forward and backward stating that her stumps hurt. Awaiting CT scan. She is cooperative. Neuro: SPEECH: speech normal Psych: APPEARANCE: Yes grossly normal ATTITUDE: Yes calm and Yes engaged ACTIVITY/MOTOR BEHAVIOR: Yes appropriate eye contact Data 09/14/24 03:37 09/14/24 03:37 Micro: Microbiology 09/12/24 23:25 Gram Stain - Final Leg - Left Wound Culture - Preliminary Coag positive Staphylococcus 09/12/24 21:12 Blood Culture - Preliminary Blood NEGATIVE TO DATE 09/12/24 21:12 Blood Culture - Preliminary Blood NEGATIVE TO DATE A&P Assessment and plan (1) Sepsis: (2) Infection of amputation stump, left lower extremity: Plan Cherrie Solomon is a 44 year old female b/l BKA (L. in 07/2019 and the R. in 04/2023) due to diabetic osteomyelitis, DM2 but not on meds due to weight loss, diabetic retinopathy (now legally blind), CKDIIIB, diabetic gastroparesis, HTN, HLD, Depression, Generalized Anxiety d/o, Insomnia, who was brought to the ED on the night of 09/12/2025 w/ complaints of burning, throbbing pain in her lower pelvic area and down her legs. #Sepsis: Due to L. LE cellulitis and asbscess #L. BKA stump cellulitis and abscess #Concern for chronic osteomyelitis - F/u BCx and wound cx done in the ED. - start 1L NS at 250cc/hr, Vanc/Zosyn. #R. BKA mass on the knee: - Defer to Surgery to evaluate. #Transaminases: Monitor response after fluid administration. #CKDIIIB: Montior renal fxn. #HTN: Hold home meds at this time. #HLD?: She says she does not have hyperlipidemia; although, it is in her chart. #DM2: She states that she no longer takes medications -Will monitor blood glucose. Follow-up A1c. Hypoglycemic protocol ordered. #Diabetic gastroparesis -Resume Reglan #Diabetic Neuropathy: Resume home meds: Duloxetin & Pregabalin # Depression, Generalized Anxiety d/o, Insomnia: On Paroxetine also - held #She says that she also has a diagnosis of bipolar disorder #Resume Ropinirole and Cylobenzaprine - Phantom leg? #GERD: Resume home Pantoprazole. #Anemia of chronic disease: Monitor cbc DVT ppx: Lovenox GI ppx: PPI ordered 09/14/2024 CT bilateral lower extremities pending. ? IV infiltrated. Awaiting for ultrasound-guided IV. ? Continue management as per assessment plan above. ? Continue Vanco and Zosyn Attestations 2 Medical Necessity Statement*: The patient needs to be hospitalized for greater than 2 midnights for sepsis, left BKA stump cellulitis and abscess with concern for chronic osteomyelitis, possibly requiring surgical intervention. Diagnoses Sepsis A41.9 Infection of amputation stump, left lower extremity T87.44
[2024-09-14] MEDS: lidocaine-epi 2% PF 1:200,000 20 mL SDV INJECTION (15:25)
--- NOTE | 2024-09-14 15:25 | P.OP_ITS ---
Operative Report Date of procedure: September 14, 2024 Pre-op diagnosis: Left prepatellar infected bursitis Stage IV decubitus ulcer left BKA stump Possible osteomyelitis distal left tibia Right patellar possibly infected bursitis Post-op diagnosis: same Procedure done: Incision and drainage of right prepatellar abscess Incision and drainage of left prepatellar abscess Excisional debridement left BKA stump stage IV decubitus ulcer measuring 4.5 x 3.5 x 1 cm Bone biopsy distal left tibia Specimens removed/disposition: Triggers Surgeon: Justin Nelson DO Anesthesia: General and Local Estimated blood loss (mL): 5 Complications: None apparent Brief History: This is a pleasant 44-year-old female who is a type I diabetic status post bilateral below-knee amputations, who presented to the hospital with possible recurrent infected bursitis of the bilateral prepatellar areas along with a decubitus ulcer at her distal left BKA stump and possible underlying osteom yelitis. Incision and drainage of bilateral prepatellar abscesses, sharp excisional debridement of left BKA stump decubitus ulcer and bone biopsies were indicated. Risks and benefits were explained and documented. Procedure: Patient was wheeled operative room placed on the OR table in supine position. General endotracheal intubation was achieved by department anesthesia. The bilateral lower extremities were inspected prepped and draped in usual sterile fashion. Timeout was performed. All present were in agreement. Starting on the right lower extremity: 2% lidocaine with epinephrine was used to anesthetize the skin on the lateral aspect of the prepatellar fluid collection. A 15 blade scalpel was then used to make a 1 cm transverse incision. Hemostats were used to puncture the bursa. Serosanguineous fluid, not grossly appearing infected, was expelled. Cavity was irrigated with normal saline and packed with half-inch iodoform gauze. Attention was then brought to the right lower extremity. Curettes were used for sharp excisional debridement of the right distal BKA stump decubitus ulcer. This is a stage IV decubitus ulcer going down to fascia with little bone exposed. Preop was done down to healthy bleeding tissue. Rongeur's were then used for bone biopsies of the distal left tibia. Specimens were sent for H&E and for culture. Hemostasis was achieved with electrocautery. 2% lidocaine with epinephrine was then used to anesthetize the skin overlying the prepatellar fluid collection of the left knee. A 10 blade scalpel was used to make a 1 cm transverse incision laterally. Hemostats were then used to puncture the bursa and purulent fluid was expelled. Cultures were obtained. All of the fluid was expelled and then the cavity was irrigated with normal saline. The cavity was then packed with half-inch iodoform gauze. Sterile dressings were applied. Patient tolerated procedure well.
[2024-09-14] MEDS: fentaNYL 50 mcg/mL INJ 2mL IVP (15:46)
--- NOTE | 2024-09-14 16:10 | ANE.PACU2 ---
Inpatient post-anesthesia follow up: Airway intact: Yes Vital signs: Temperature 98.1 F Pulse Rate 91 Respiratory Rate 16 Blood Pressure 180/91 Pulse Oximetry 98 Oxygen Delivery Me thod Room Air Oxygen Flow Rate Fraction of Inspir ed Oxygen Hydration adequate: Yes Nausea and vomiting: No Pain level: 1 Mental status: Baseline
[2024-09-14 16:45] LABS: Glucose Point of Care 120 mg/dL (70-110)
[2024-09-14 20:13] LABS: Glucose Point of Care 223 mg/dL (70-110)
[2024-09-14] MEDS: ropinirole 1 mg Tablet PO (21:06)
[2024-09-15] VITALS (12 sets, daily range): BP systolic 133–180; BP diastolic 79–92; PULSE 91–103; RESP 15–18; TEMP 36.7–37.1; O2SAT 94–99
[2024-09-15] MEDS: VANCOMYCIN ADD-Vantage 750 MG in 0.9% NaCl ADD-Vantage 250 ML 250 MG IV (01:35)
[2024-09-15] MEDS: ondansetron 2 mg/ML SDV 2 mL 4 MG IVP ×2 (01:38→09:18)
[2024-09-15] MEDS: HYDROmorphone 1 mg/mL INJ 1 mL 0.4 MG IVP (02:39)
[2024-09-15] MEDS: piperacillin-tazobactam 3.375 GM in sodium chloride 0.9% (plus) 50 ML IV ×3 (04:24→20:49)
[2024-09-15] MEDS: oxyCODONE 5 mg IR Tab/Cap 10 MG PO ×2 (05:59→15:55)
[2024-09-15 06:26] LABS: Glucose Point of Care 147 mg/dL (70-110)
[2024-09-15] MEDS: HYDROmorphone 1 mg/mL INJ 1 mL IVP ×3 (09:18→20:48)
[2024-09-15] MEDS: docusate sodium 100 mg Capsule 200 MG PO (09:55)
[2024-09-15] MEDS: duloxetine 20 mg Capsule PO ×2 (09:55→18:22)
[2024-09-15] MEDS: pregabalin 50 mg Capsule PO ×2 (09:55→18:22)
[2024-09-15] MEDS: pantoprazole DR 40 mg Tablet PO (09:55)
[2024-09-15] MEDS: sennosides 8.6 mg Tablet 17.2 MG PO (09:55)
[2024-09-15] MEDS: cyclobenzaprine 10 mg Tablet PO ×3 (09:55→20:49)
[2024-09-15 10:06] LABS: Basophils % 0.2 %; Eosinophils % 0.2 %; Hematocrit 25.6 % (36-47); Lymphocytes # 1.1 10^3/uL (0.8-4.8); Lymphocytes % 11.3 %; Mean Corpuscular HGB Conc 31.6 g/dL (30-55); Mean Corpuscular Hemoglobin 28.3 pg (27-33); Mean Corpuscular Volume 89.5 fl (85-98); Mean Platelet Volume 8.6 fL (7.4-10.4); Monocytes # 0.7 10^3/uL (0.2-0.9); Monocytes % 7.4 %; Neutrophils # 7.88 10^3/uL (1.8-7.7); Neutrophils % 80.4 %; Nucleated Red Blood Cells % 0 %; Platelet Count 459 10^3/cmm (157-399); Red Blood Count 2.86 10^6/uL (3.85-5.65); Red Cell Distribution Width 15.3 % (12.1-15.1); White Blood Count 9.81 10^3/uL (3.29-11.43)
[2024-09-15 10:24] LABS: Magnesium 1.9 mg/dL (1.7-2.3)
[2024-09-15 10:26] LABS: Phosphorus 4.2 mg/dL (2.5-4.5)
[2024-09-15 11:38] LABS: Glucose Point of Care 103 mg/dL (70-110)
--- NOTE | 2024-09-15 13:18 | P.PN_ITS ---
Subjective 2 Subjective: Patient seen and examined. Pain controlled. No complaints Vitals/I&O/Wt Last Vital Signs Temp 98.1 F 09/15/24 11:17 Pulse 91 09/15/24 11:17 Resp 17 09/15/24 13:06 BP 180/91 09/15/24 11:17 Pulse Ox 98 09/15/24 11:17 O2 Del Method Room Air 09/15/24 11:17 09/14/24 09/15/24 09/15/24 22:59 06:59 14:59 Intake Total 480 / 530 1660 / 2190 170 / 170 Output Total 310 / 310 300 / 610 Balance 170 / 220 1360 / 1580 170 / 170 Weight last 48 hrs Weight 135 lb 9.6 oz Weight 135 lb 9.6 oz Physical Exam 2 Narrative: Acute distress, awake alert and oriented x 3 Extremities: No erythema on either lower extremity. Drainage from both prepatellar bursa's is purulent Data 09/15/24 09:21 09/14/24 03:37 Micro: Microbiology 09/12/24 23:25 Gram Stain - Final Leg - Left Wound Culture - Final Staphylococcus aureus 09/14/24 15:12 Gram Stain - Final Bone 09/14/24 15:07 Gram Stain - Final Knee - #1 09/14/24 15:06 Gram Stain - Final Knee - #1 A&P Assessment and plan (1) Infection of amputation stump, left lower extremity: (2) Abscess of left lower extremity: (3) Abscess of right lower extremity: (4) Osteomyelitis: Plan Postoperative day #1 status post: Incision and drainage of left lower extremity abscess Incision and drainage of right lower extremity abscess Sharp excisional debridement of left lower extremity wound Left distal tibial bone biopsy Daily dressing changes Antibiotics per primary I am available for above-knee amputation(S), if necessary, but patient would benefit by keeping her knees if possible through long-term antibiotics Await culture results Medical management per primary Attestations 2 Medical Necessity Statement*: per Primary Coding Level of Care Code 58097 Diagnoses Infection of amputation stump, left lower extremity T87.44 Abscess of left lower extremity L02.416 Abscess of right lower extremity L02.415 Osteomyelitis M86.9
--- NOTE | 2024-09-15 13:20 | P.PN_ITS ---
Subjective 2 Subjective: seen today had bone biopsy yesterday Vitals/I&O/Wt Last Vital Signs Temp 98.1 F 09/15/24 11:17 Pulse 91 09/15/24 11:17 Resp 17 09/15/24 13:06 BP 180/91 09/15/24 11:17 Pulse Ox 98 09/15/24 11:17 O2 Del Method Room Air 09/15/24 11:17 09/14/24 09/15/24 09/15/24 22:59 06:59 14:59 Intake Total 480 / 530 1660 / 2190 170 / 170 Output Total 310 / 310 300 / 610 Balance 170 / 220 1360 / 1580 170 / 170 Weight last 48 hrs Weight 61.507 kg Weight 61.507 kg Physical Exam 2 Narrative: General: Alert oriented x 3. laying in bed HEENT: PERRLA, pupils bilaterally equal and reactive, Chest: Normal vesicular breath sounds, no added sounds, equal good air entry bilaterally CVS: S1-S2 regular, no murmurs, no tachycardia, no gallops, no rubs Abdomen: Soft, nontender, bowel sounds present Neuro: No focal deficits grossly Extremities: stumps covered with bandage Neuro: SPEECH: speech normal Psych: APPEARANCE: Yes grossly normal ATTITUDE: Yes calm and Yes engaged ACTIVITY/MOTOR BEHAVIOR: Yes appropriate eye contact Data 09/15/24 09:21 09/14/24 03:37 Micro: Microbiology 09/12/24 23:25 Gram Stain - Final Leg - Left Wound Culture - Final Staphylococcus aureus 09/14/24 15:12 Gram Stain - Final Bone 09/14/24 15:07 Gram Stain - Final Knee - #1 09/14/24 15:06 Gram Stain - Final Knee - #1 A&P Assessment and plan (1) Sepsis: (2) Infection of amputation stump, left lower extremity: Plan Cherrie Solomon is a 44 year old female b/l BKA (L. in 07/2019 and the R. in 04/2023) due to diabetic osteomyelitis, DM2 but not on meds due to weight loss, diabetic retinopathy (now legally blind), CKDIIIB, diabetic gastroparesis, HTN, HLD, Depression, Generalized Anxiety d/o, Insomnia, who was brought to the ED on the night of 09/12/2025 w/ complaints of burning, throbbing pain in her lower pelvic area and down her legs. #Sepsis: Due to L. LE cellulitis and asbscess #L. BKA stump cellulitis and abscess #Concern for chronic osteomyelitis - F/u BCx and wound cx done in the ED. - start 1L NS at 250cc/hr, Vanc/Zosyn. #R. BKA mass on the knee: - Defer to Surgery to evaluate. #Transaminases: Monitor response after fluid administration. #CKDIIIB: Montior renal fxn. #HTN: Hold home meds at this time. #HLD?: She says she does not have hyperlipidemia; although, it is in her chart. #DM2: She states that she no longer takes medications -Will monitor blood glucose. Follow-up A1c. Hypoglycemic protocol ordered. #Diabetic gastroparesis -Resume Reglan #Diabetic Neuropathy: Resume home meds: Duloxetin & Pregabalin # Depression, Generalized Anxiety d/o, Insomnia: On Paroxetine also - held #She says that she also has a diagnosis of bipolar disorder #Resume Ropinirole and Cylobenzaprine - Phantom leg? #GERD: Resume home Pantoprazole. #Anemia of chronic disease: Monitor cbc DVT ppx: Lovenox GI ppx: PPI ordered 09/14/2024 CT bilateral lower extremities pending. ? IV infiltrated. Awaiting for ultrasound-guided IV. ? Continue management as per assessment plan above. ? Continue Vanco and Zosyn 09/15/2024 -Discussed with Dr. Nelson in detail. At this point patient is status post incision and drainage of left and right lower extremity abscesses. There was left distal tibial bone biopsy also performed. Daily dressing changes as per general surgery. ? Patient will need long-term antibiotics going forward to treat osteomyelitis. Bone biopsy has been obtained and is pending at this time ? Consult infectious disease. ? Should patient fail antibiotics and if there is a recommendation from infectious disease then [id number] amputation may be considered. Patient to follow-up with Dr. Nelson as an outpatient after discharge. ? Await ID consult for further recommendations. ? Preliminary report of culture does show Staph aureus, MRSA not ruled out. Will continue Vanco and Zosyn at this time. -Discussed with Dr. Emery and Dr. Nelson over the phone. Will await final recommendations. Attestations 2 Medical Necessity Statement*: Osteomyelitis. Will need to have antibiotics set up prior to discharge. Diagnoses Sepsis A41.9 Infection of amputation stump, left lower extremity T87.44
[2024-09-15 16:20] LABS: Glucose Point of Care 116 mg/dL (70-110)
--- NOTE | 2024-09-15 16:50 | PM.CONSULT ---
Providers/Reason For Consult Consulting Physician/Specialty*: Sonali Emery MD / Infectious Disease Reason for Consult*: osteomyelitis Requesting Physician: Mercedez Dahl MD Attending Physician: Mercedez Dahl MD Primary Care Provider: Monika Simpson MD History of Present Illness History of Present Illness Cherrie Solomon is a 44 year old female with a past medical history of CKD CAD history of gastroparesis, bilateral BKA, hypertension, history of C. difficile, history of PTSD, history of self harming behaviors, history of diabetes mellitus, blindness. In April 2024 she had suffered from left BKA cellulitis. Imaging of the leg had shown a complex fluid collection in the amputation stump measuring 9 x 7 x 5 cm. There was no sign of osteomyelitis at the time. She underwent I&D with orthopedics on May 17, 2024. Culture had shown MSSA. Patient was discharged on Augmentin and linezolid. She followed up with wound care on May 21, 2024 and was placed on a wound VAC thereafter for wound dehiscence. On her wound care visit in May 2024, she was noted to additionally have right prepatellar swelling over the right knee. It appears she continued to follow-up with wound care until June 2024 but then was referred to higher tertiary center. She has a history of dragging herself across the floor and does not consistently usually use a wheelchair. This has caused shearing and wound breakdown in the past. She followed up with orthopedics in June 2024 and was referred to see her original Orthopedician where the BKA's were performed(micheline). She was recommended to try to get fitted for a new prosthesis. She was recommended to stop walking on her knees. Left BKA stump site/site of wound dehiscence was cultured at wound care in June 2024 which showed MSSA again. It appears her wound VAC had been falling off because she continued to drag across the floor. Wound VAC therapy was stopped at this time. She was referred to tertiary orthopedic center. She is currently admitted here since September 12, 2024 after presenting with repeated drainage from her left leg. Additionally has increased swelling of her right knee. She was having fever of 99.9 Fahrenheit at home chills and a poor appetite. In the ED she received a non contrast left lower extremity CT which showed a 10 x 7 prepatellar/infrapatellar abscess and soft tissue ulceration with findings compatible with osteomyelitis of the distal tibial stump. She was admitted and started on Zosyn and vancomycin. Per review of ER notes, orthopedics recommended transfer to higher center as has been recommended in the past however eventually patient was admitted here. Patient is currently being evaluated by general surgery. On September 14, 2024 bilateral lower knee CTs were performed with contrast. Left leg showed extensive destructive osteomyelitis involving the residual distal tibial shaft extending at least one third into the residual shaft. Additional osteomyelitis involving the distal residual fibula. Prepatellar infectious bursitis with thick-walled peripheral enhancement and diffuse surrounding enhancement. Degenerative changes involving the left hip and sacroiliac joint. CT with contrast of the right femur is showing cellulitis and osteomyelitis of the distal tibial stump. There is suspected infectious prepatellar bursitis with diffuse peripheral thick-walled enhancement. She underwent I&D right and left prepatellar abscess and excisional debridement of the left BKA stump with bone biopsy on September 14, 2024. Review of IntraOp note shows on the right lower extremity there was serosanguineous fluid encountered on puncturing the bursa. Bone biopsy of the distal left tibia was obtained. Specimen has been sent for culture. On the left BKA stump, bursa was punctured and purulent fluid was expelled. Culture was obtained which is currently pending. Review of Systems General: Reports: 10 or more systems reviewed and unremarkable except in HPI and below Const: Reports: fever(s) and chills; Denies: body aches Eyes: Denies: change in vision, blurry vision or photophobia ENMT: Reports: hoarseness; Denies: throat pain, enlarged tonsils, odynophagia or nasal congestion Card: Denies: chest pain, palpitations, irregular heart rhythm, edema, swelling of feet/ankles, lightheadedness, pre-syncope, dyspnea on exertion or orthopnea Resp: Denies: dyspnea, productive cough, non-productive cough, wheezing, stridor, pain on inspiration, change in phlegm color, hemoptysis or chest congestion GI: Denies: abdominal pain, nausea, vomiting, hematemesis, coffee ground emesis, dysphagia, heartburn, diarrhea, constipation, GI cramping, change in stool character, hematochezia or melena : Denies: flank pain, difficulty voiding, dysuria, urinary frequency, urinary urgency, urinary hesitancy or hematuria Musc: Denies: neck pain, back pain, extremity pain, joint swelling, joint warmth or deformity Neuro: Denies: headache(s), numbness in extremities, weakness in extremities, sensory changes, difficulty walking, frequent falls, dizziness, vertigo, behavioral changes, Slurred speech present or seizure-like activity Psych: Denies: anxiety, depression, suicidal ideation or homicidal ideation Endo: Denies: polyuria, polydipsia, tired all the time, cold intolerance or hot flashes Keith/Lymph: Denies: easy bruising or easy bleeding Medications/Allergies Home Medications Medication Instructions Recorded Confirmed Last Taken Type pregabalin 50 mg capsule 50 mg PO BID 05/17/24 09/13/24 05/16/24 History metoclopramide HCl 10 mg tablet 10 mg PO QID PRN Constipation #1 05/19/24 09/13/24 05/16/24 Rx tab cyclobenzaprine 10 mg tablet 10 mg PO TID #30 tabs 06/03/24 09/13/24 Unknown Rx duloxetine 20 mg capsule,delayed 20 mg PO BID 30 days #60 caps 06/03/24 09/13/24 Unknown Rx release hydroxyzine pamoate 25 mg capsule 50 mg (2 x 25 mg) PO Q6H PRN 06/03/24 09/13/24 Unknown Rx Anxiety 30 days #120 caps pantoprazole 40 mg tablet,delayed 40 mg PO DAILY 30 days #30 tabs 06/03/24 09/13/24 Unknown Rx release paroxetine HCl 20 mg tablet 40 mg (2 x 20 mg) PO DAILY 30 days 06/03/24 09/13/24 Unknown Rx #60 tabs ropinirole 1 mg tablet 1 mg PO BEDTIME 30 days #30 tabs 06/03/24 09/13/24 Unknown Rx amlodipine 5 mg tablet 5 mg PO DAILY 09/13/24 09/13/24 Unknown History naloxone 4 mg/actuation nasal See Rx Instructions .Route .COMPLEX 09/13/24 09/13/24 Unknown History spray (Narcan) quetiapine 100 mg tablet 100 mg PO BEDTIME 09/13/24 09/13/24 Unknown History Allergies Allergy/AdvReac Type Severity Reaction Status Date / Time morphine Allergy ALGY-Difficulty Verified 09/12/24 20:19 Breathing sulfamethoxazole Allergy ADR-Vomitin Verified 09/12/24 20:19 [From Bactrim] g trimethoprim [From Bactrim] Allergy ADR-Vomitin Verified 09/12/24 20:19 g Current Medications Generic Name Dose Route Start Last Admin Trade Name Freq PRN Reason Stop Dose Admin Cyclobenzaprine HCl 10 mg 09/13/24 09:00 09/15/24 15:56 Cyclobenzaprine 10 Mg Tablet PO 10 mg TID DAWSON Administration Docusate Sodium 200 mg 09/13/24 09:00 09/15/24 09:55 Docusate Sodium 100 Mg Capsule PO 200 mg DAILY DAWSON Administration Duloxetine HCl 20 mg 09/13/24 09:00 09/15/24 09:55 Duloxetine 20 Mg Capsule PO 20 mg BID DAWSON Administration Enoxaparin Sodium 40 mg 09/13/24 21:00 09/14/24 21:06 Enoxaparin 40 Mg/0.4 Ml Syringe SUBCUT Not Given Q24H DAWSON Hydromorphone HCl 1 mg 09/14/24 01:19 09/15/24 13:06 Hydromorphone 1 Mg/Ml Inj 1 Ml IVP 1 mg Q8H PRN Administration SEVERE PAIN Vancomycin HCl 750 mg/ Sodium 250 mls @ 250 mls/hr 09/14/24 02:00 09/15/24 02:35 Chloride IV Infused Q24H [facility] Infusion Piperacillin Sod/Tazobactam 50 mls @ 12.5 mls/hr 09/13/24 10:30 09/15/24 13:30 Sod 3.375 gm/ Sodium Chloride IV 12.5 mls/hr Q8H DAWSON Administration Ondansetron HCl 4 mg 09/13/24 02:47 09/15/24 09:18 Ondansetron 2 Mg/Ml Sdv 2 Ml IVP 4 mg Q6H PRN Administration vomiting, or N/V if npo Oxycodone HCl 10 mg 09/14/24 01:19 09/15/24 15:55 Oxycodone 5 Mg Ir Tab/Cap PO 10 mg Q8H PRN Administration SEVERE PAIN Pantoprazole Sodium 40 mg 09/13/24 09:00 09/15/24 09:[address] 40 Mg Tablet PO 40 mg DAILY DAWSON Administration Pregabalin 50 mg 09/13/24 09:00 09/15/24 09:55 Pregabalin 50 Mg Capsule PO 50 mg BID DAWSON Administration Ropinirole HCl 1 mg 09/13/24 21:00 09/14/24 21:06 Ropinirole 1 Mg Tablet PO 1 mg BEDTIME DAWSON Administration Senna 17.2 mg 09/13/24 09:00 09/15/24 09:55 Sennosides 8.6 Mg Tablet PO 17.2 mg DAILY DAWSON Administration PFSH Acute PFSH: Medical History Suicide attempt Urinary retention Septic prepatellar bursitis of left knee Chronic pain Hyperglycemia Anemia of chronic disease Insomnia GERD (gastroesophageal reflux disease) ALEJANDRO (generalized anxiety disorder) C. 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 CKD (chronic kidney disease) stage 2, GFR 60-89 ml/min baseline Cr is around 1.0 Diabetic foot ulcer s/p surgical intervention and eventual amputation Hyperlipidemia Coronary artery disease hx of stenting Diabetic gastroparesis Diabetes mellitus type 1 diagnosed age 15, history of peripheral neuropathy, gastroparesis and nephropathy Surgical History Hx of angioplasty H/O esophagogastroduodenoscopy (12/31/20) Bile reflux gastritis, grade B esophagitis Hx of cholecystectomy History of amputation of right forefoot Below-knee amputation of left lower extremity S/P percutaneous endoscopic gastrostomy (PEG) tube placement H/O exploratory laparotomy x 3 Previous section x 3 S/P coronary artery stent placement x 1 Family History Unknown Diabetes extensive, type II Other Congestive heart failure (CHF) Social History Smoking and tobacco/nicotine status: former use of tobacco/nicotine Quit status (tobacco/nicotine): has quit using Former quit date comment: 15 yrs ago Alcohol intake: former Former alcohol use details: 15 yrs ago Substance/Drug Use: current Substance/Drug use frequency: daily Substance/Drug use type: Marijuana Household members: spouse Marital status: Current occupation: disabled Sexually active: Yes (1, ) Female Reproductive History: Spontaneous abortions: No Vitals/I&O/Wt Last Vital Signs Temp 98.4 F 09/15/24 16:06 Pulse 95 09/15/24 16:06 Resp 15 09/15/24 16:06 BP 179/92 09/15/24 16:06 Pulse Ox 97 09/15/24 16:06 O2 Del Method Room Air 09/15/24 16:06 09/15/24 09/15/24 09/15/24 06:59 14:59 22:59 Intake Total 1660 / 2190 410 / 410 Output Total 300 / 610 Balance 1360 / 1580 410 / 410 Weight last 48 hrs Weight 61.507 kg Weight 61.507 kg Physical Exam Narrative: General: No acute distress, AO x3, she is blind HEENT: PERRLA, pupils bilaterally equal and reactive, pallors not present Chest: Normal vesicular breath sounds, no added sounds, equal good air entry bilaterally CVS: S1-S2 regular, no murmurs, no tachycardia, no gallops, no rubs Abdomen: Soft, nontender, no organomegaly, bowel sounds present Neuro: No focal deficits, no facial deformity, AO x3, power 5/5 in all limbs Extremities: B/L BKA with surgical dressing in place, not opened for exam Data 09/15/24 09:21 09/14/24 03:37 Other Labs: Laboratory Results WBC 9.81 10^3/uL (3.29-11.43) 09/15/24 09:21 RBC 2.86 10^6/uL (3.85-5.65) L 09/15/24 09:21 Hgb 8.10 g/dL (11.27-16.99) L 09/15/24 09:21 Hct 25.6 % (36-47) L 09/15/24 09:21 MCV 89.5 fl (85-98) 09/15/24 09:21 MCH 28.3 pg (27-33) 09/15/24 09:21 MCHC 31.6 g/dL (30-55) 09/15/24 09:21 RDW 15.3 % (12.1-15.1) H 09/15/24 09:21 Plt Count 459 10^3/cmm (157-399) H 09/15/24 09:21 MPV 8.6 fL (7.4-10.4) 09/15/24 09:21 Neut % (Auto) 80.4 % 09/15/24 09:21 Lymph % (Auto) 11.3 % 09/15/24 09:21 Gaston % (Auto) 7.4 % 09/15/24 09:21 Eos % (Auto) 0.2 % 09/15/24 09:21 Baso % (Auto) 0.2 % 09/15/24 09:21 Neut # (Auto) 7.88 10^3/uL (1.8-7.7) H 09/15/24 09:21 Lymph # (Auto) 1.1 10^3/uL (0.8-4.8) 09/15/24 09:21 Gaston # (Auto) 0.7 10^3/uL (0.2-0.9) 09/15/24 09:21 Eos # (Auto) 0.0 10^3/uL (0.0-0.8) 09/15/24 09:21 Baso # (Auto) 0.0 10^3/uL (0.0-0.1) 09/15/24 09:21 Nucleated RBC % (auto) 0 % 09/15/24 09:21 Nucleated RBCs # 0.0 /100WBC 09/15/24 09:21 PT 13.00 SECONDS (12.1-14.9) 09/13/24 05:08 INR 0.91 (0.8-1.2) 09/13/24 05:08 APTT 34.0 SECONDS (23.9-36.7) 09/13/24 05:08 Sodium 134 mmol/L (136-145) L 09/14/24 03:37 Potassium 3.8 mmol/L (3.5-5.1) 09/14/24 03:37 Chloride 99 mmol/L (98-107) 09/14/24 03:37 Carbon Dioxide 17 mmol/L (22-29) L 09/14/24 03:37 Anion Gap 21.8 (5-19) H 09/14/24 03:37 BUN 25 mg/dL (6-20) H 09/14/24 03:37 Creatinine 1.6 mg/dL (0.5-0.9) H 09/14/24 03:37 GFR Calculation 34.7 mL/min (90-130) L 09/14/24 03:37 Glucose 152 mg/dL (65-115) H 09/14/24 03:37 POC Glucose 116 mg/dL (70-110) H 09/15/24 16:08 Estimat Average Glucose 108 09/13/24 05:08 Hemoglobin A1c 5.4 % (4.0-6.0) 09/13/24 05:08 Calculated Osmolality 285 mOsm/kg (285-295) 09/14/24 03:37 Lactic Acid 1.0 mmol/L (0.5-2.2) 09/12/24 21:12 Calcium 9.1 mg/dL (8.5-10.5) 09/14/24 03:37 Phosphorus 4.2 mg/dL (2.5-4.5) 09/15/24 09:21 Magnesium 1.9 mg/dL (1.7-2.3) 09/15/24 09:21 Total Bilirubin 0.8 mg/dL (0.15-1.2) 09/14/24 03:37 GGT 194 U/L (5-36) H 09/13/24 05:08 AST 25 U/L (0-32) 09/14/24 03:37 ALT 42 U/L (0-33) H 09/14/24 03:37 Alkaline Phosphatase 300 U/L (35-105) H 09/14/24 03:37 C-Reactive Protein 71.2 mg/L (0.0-4.9) H 09/12/24 21:12 Total Protein 7.4 g/dL (6.6-8.7) D 09/14/24 03:37 Albumin 3.5 g/dL (3.5-5.2) 09/14/24 03:37 Globulin 3.9 g/dL (1.3-4.6) 09/14/24 03:37 Date of Service: 09/14/24 Procedure(s): CT femur RT w con [id number] CT/CT femur RT w con [id number] IMPRESSION: 1. Cellulitis with suspected osteomyelitis distal tibia stump. No drainable stump collections. 2. Suspected infectious prepatellar bursitis with diffuse peripheral thick-walled enhancement. 3. Dense vascular calcification. 4. See additional findings above. Date of Service: 09/14/24 Procedure(s): CT femur LT w con [id number] CT/CT femur LT w con [id number] IMPRESSION: 1. Extensive destructive osteomyelitis involving the residual distal tibial shaft extending at least one third into the residual shaft. Additional osteomyelitis distal residual fibula. 2. Dehiscence with cellulitis involving the soft tissue stump. 3. Suspected prepatellar infectious bursitis described above. Micro: Microbiology 09/12/24 23:25 Gram Stain - Final Leg - Left Wound Culture - Final Staphylococcus aureus 09/14/24 15:12 Gram Stain - Final Bone 09/14/24 15:07 Gram Stain - Final Knee - #1 09/14/24 15:06 Gram Stain - Final Knee - #1 NAME: Cherrie Solomon LOC: [facility] U #: [id number] AGE/SX: 44/F ROOM: 264 RE09/13/[address]: Mercedez Dahl MD : 1980 BED: 1 DIS: FAX #: STATUS: ADM IN TLOC: Spec #: [id number] Clarissa: 09/14/24-1512 Status: RES Req #: [id number] Recd: 09/14/24-[address]: Justin Nelson DO Src: Bone SpDesc: Ordered: Tissue Cult GS, Anaer Comments: Comment left tibia Procedure Result Verified Site Gram Stain Final 09/15/24 Result NO WHITE BLOOD CELLS SEEN NO ORGANISMS SEEN Anaerobic Culture PENDING Tissue Culture PENDING NAME: Cherrie Solomon LOC: [facility] U #: [id number] AGE/SX: 44/F ROOM: 264 RE09/13/[address]: Mercedez Dahl MD : 1980 BED: 1 DIS: FAX #: STATUS: ADM IN TLOC: Spec #: [id number] Clarissa: 09/14/24 Status: RES Req #: [id number] Recd: 09/14/[address]: Justin Nelson DO Src: Knee SpDesc: #1 Ordered: Absces Cult&GS, Anaer Comments: Comment Left knee abscess Procedure Result Verified Site Gram Stain Final 09/15/24 Result NO WHITE BLOOD CELLS SEEN NO ORGANISMS SEEN Anaerobic Culture PENDING Abscess Culture PENDING NAME: Surjit Solomonna LOC: [facility] U #: [id number] AGE/SX: 44/F ROOM: 264 RE09/13/[address]: Mercedez Dahl MD : 1980 BED: 1 DIS: FAX #: STATUS: ADM IN TLOC: Spec #: [id number] Clarissa: 09/14/24 Status: RES Req #: [id number] Recd: 09/14/[address]: Justin Nelson DO Src: Knee SpDesc: #1 Ordered: Absces Cult&GS, Anaer Comments: Comment right knee abscess Procedure Result Verified Site Gram Stain Final 09/15/24 Result NO WHITE BLOOD CELLS SEEN NO ORGANISMS SEEN Anaerobic Culture PENDING Abscess Culture PENDING NAME: Cherrie Solomon LOC: [facility] U #: [id number] AGE/SX: 44/F ROOM: 264 RE09/13/[address]: Mercedez Dahl MD : 1980 BED: 1 DIS: FAX #: STATUS: ADM IN TLOC: Spec #: [id number] Clarissa: 09/12/24 Status: COMP Req #: [id number] Recd: 09/13/[address]: Aracelis Ding Src: Leg SpDesc: Left Ordered: WC and GS Procedure Result Verified Site Gram Stain Final 09/13/24-1845 Result MODERATE WHITE BLOOD CELLS NO ORGANISMS SEEN Wound Culture Final 09/15/24-1104 Organism 1 Staphylococcus aureus Growth MODERATE DAY 2 CRITICAL RESULT YES/NO: YES CRITICAL CALLED BY: ROBJE TO AND READ BACK BY: ABBIE DATE: 09/15/24 TIME: 1104 S aureus M.I.C. RX --------- ------ * Ciprofloxacin <=1 S * Clindamycin >4 R * Erythromycin >4 R * Gentamicin <=4 S * Levofloxacin <=1 S * Linezolid 4 S * Moxifloxacin <=0.5 S * Oxacillin 1 S * Penicillin >8 R * Rifampin <=1 S * Tetracycline >8 R * Trimethoprim/Sulfamethoxazole <=0.5/9.5 S Vancomycin 2 S Daptomycin 1 S Wound Culture Preliminary (changed) 09/14/24 Organism 1 Coag positive Staphylococcus Growth MODERATE DAY 1, RESULTS TO FOLLOW NAME: Cherrie Solomon LOC: [facility] U #: [id number] AGE/SX: 44/F ROOM: [facility] RE09/13/[address]: Mercedez Dahl MD : 1980 BED: 1 DIS: FAX #: STATUS: ADM IN TLOC: Spec #: [id number] Clarissa: 09/12/24 Status: RES Req #: [id number] Recd: 09/12/[address]: Aracelis Ding Src: Blood SpDesc: Ordered: Bcult Procedure Result Verified Site Blood Culture Preliminary 09/13/24 NEGATIVE TO DATE Blood Culture Preliminary (changed) 09/12/24 SPECIMEN COLLECTED NAME: SolomonSurjit bhatiana LOC: [facility] U #: [id number] AGE/SX: 44/F ROOM: [facility] RE09/13/[address]: Mercedez Dahl MD : 1980 BED: 1 DIS: FAX #: STATUS: ADM IN TLOC: Spec #: [id number] Clarissa: 09/12/24 Status: RES Req #: [id number] Recd: 09/12/[address]: Aracelis Ding Src: Blood SpDesc: Ordered: Bcult Procedure Result Verified Site Blood Culture Preliminary 09/13/24 NEGATIVE TO DATE Blood Culture Preliminary (changed) 09/12/24 SPECIMEN COLLECTED A&P Assessment and plan (1) Osteomyelitis of right lower extremity: Cellulitis with suspected osteomyelitis distal tibia stump. No drainable stump collections.Suspected infectious prepatellar bursitis with diffuse peripheral thick-walled enhancement.Dense vascular calcification. (2) Osteomyelitis of left lower extremity: Extensive destructive osteomyelitis involving the residual distal tibial shaft extending at least one third into the residual shaft. Additional osteomyelitis distal residual fibula. Dehiscence with cellulitis involving the soft tissue stump. Suspected prepatellar infectious bursitis with thick walled peripheral enhancement and diffuse surrounding enhancement and edema (3) Wound dehiscence: (4) Cellulitis: (5) Bursitis due to bacterial infection: Plan 44-year-old lady with multiple comorbidities as listed above presenting to the hospital with bilateral infectious prepatellar bursitis and bilateral osteomyelitis. associated left BKA wound dehiscence which has not healed since at least April 2024. Blood cultures negative thus far from September 12, 2023 Status post I&D by general surgery bilaterally, bone biopsy and culture taken on September 14, 2024 So far wound culture and Gram stain taken in the emergency room from the left BKA stump are with growth of MSSA. OR cultures from September 14 including left tibia culture, left knee prepatellar bursa cultures, right knee abscess cultures are currently pending, thus far no growth. Bone biopsy and cx from right side N/A. She is currently on treatment empirically with piperacillin and vancomycin which can continue for now. Once cultures are finalized, we will be able to design an antibiotic regimen for outpatient use. Patient is at high risk of antibiotic failure and progression to a higher level of amputation due to her noncompliance. If she continues to have the same lifestyle with weightbearing or dragging on her stumps, it is highly unlikely that her wounds will ever heal. Should she recover from this current episode she is likely to suffer from a recurrent cycle of wound dehiscence and osteomyelitis if nothing changes with her lifestyle. She understands but states that she takes care of young grandchildren who push her wheelchair around and therefore she feels safer being on the floor. noted vascular calcifications on imaging ? PAD Would recommend [facility] to [facility] with [facility] care management capabilities when she is ready. will follow with results of cx Consult Attestations Medical Necessity Statement: per admitting Coding Level of Care Code Acute Code for Chg Fwd Diagnoses Osteomyelitis of right lower extremity M86.9 Osteomyelitis of left lower extremity M86.9 Wound dehiscence T81.30XA Cellulitis L03.90 Bursitis due to bacterial infection M71.10; B96.89
[2024-09-15 20:20] LABS: Glucose Point of Care 112 mg/dL (70-110)
[2024-09-15] MEDS: ropinirole 1 mg Tablet PO (20:49)
[2024-09-16] VITALS (10 sets, daily range): BP systolic 154–169; BP diastolic 74–90; PULSE 88–99; RESP 15–20; TEMP 36.7–36.9; O2SAT 98–99
[2024-09-16 02:09] LABS: Vancomycin Trough 13.5 ug/mL (10-15)
[2024-09-16] MEDS: ondansetron 2 mg/ML SDV 2 mL 4 MG IVP ×2 (02:35→12:09)
[2024-09-16] MEDS: VANCOMYCIN ADD-Vantage 750 MG in 0.9% NaCl ADD-Vantage 250 ML 250 MG IV (02:35)
[2024-09-16] MEDS: HYDROmorphone 1 mg/mL INJ 1 mL IVP ×3 (03:20→14:52)
[2024-09-16] MEDS: piperacillin-tazobactam 3.375 GM in sodium chloride 0.9% (plus) 50 ML IV ×3 (05:26→20:27)
[2024-09-16 06:09] LABS: Glucose Point of Care 110 mg/dL (70-110)
[2024-09-16] MEDS: oxyCODONE 5 mg IR Tab/Cap 10 MG PO ×2 (06:28→17:15)
[2024-09-16 06:47] LABS: Basophils % 0.5 %; Eosinophils # 0.1 10^3/uL (0.0-0.8); Eosinophils % 0.9 %; Hematocrit 26.4 % (36-47); Lymphocytes # 0.7 10^3/uL (0.8-4.8); Lymphocytes % 10.3 %; Mean Corpuscular HGB Conc 30.7 g/dL (30-55); Mean Corpuscular Hemoglobin 29.1 pg (27-33); Mean Platelet Volume 8.5 fL (7.4-10.4); Monocytes # 0.5 10^3/uL (0.2-0.9); Monocytes % 7.5 %; Neutrophils # 5.11 10^3/uL (1.8-7.7); Neutrophils % 80.2 %; Nucleated Red Blood Cells % 0 %; Platelet Count 413 10^3/cmm (157-399); Red Blood Count 2.78 10^6/uL (3.85-5.65); Red Cell Distribution Width 15.2 % (12.1-15.1); White Blood Count 6.38 10^3/uL (3.29-11.43)
[2024-09-16 07:07] LABS: Phosphorus 3.5 mg/dL (2.5-4.5)
--- NOTE | 2024-09-16 07:39 | PC.NURSE ---
0600 pt placed self on the floor. c/o pain, refused to get back in bed , nurse explained pt that floor is dirty but pt continue to refuse to get back in bed, nurse asked how sitting on the floor hels with pt pain and pt stated I don't know I am just looking for a comfortable position . pt alert and oriented.
[2024-09-16] MEDS: pregabalin 50 mg Capsule PO ×2 (08:48→17:14)
[2024-09-16] MEDS: pantoprazole DR 40 mg Tablet PO (08:48)
[2024-09-16] MEDS: duloxetine 20 mg Capsule PO ×2 (08:48→17:14)
[2024-09-16] MEDS: cyclobenzaprine 10 mg Tablet PO ×3 (08:48→20:27)
[2024-09-16] MEDS: sennosides 8.6 mg Tablet 17.2 MG PO (08:54)
[2024-09-16] MEDS: docusate sodium 100 mg Capsule 200 MG PO (08:54)
[2024-09-16 11:43] LABS: Glucose Point of Care 120 mg/dL (70-110)
--- NOTE | 2024-09-16 12:52 | P.PN_ITS ---
Subjective 2 Subjective: Seen this morning. Patient requesting her pain meds to be switched to every 6 hours. Cultures are pending. Vitals/I&O/Wt Last Vital Signs Temp 98.4 F 09/16/24 11:24 Pulse 94 09/16/24 11:24 Resp 16 09/16/24 12:09 BP 158/84 09/16/24 11:24 Pulse Ox 99 09/16/24 12:09 O2 Del Method Room Air 09/16/24 11:24 09/15/24 09/16/24 09/16/24 22:59 06:59 14:59 Intake Total 630 / 1040 540 / 1580 168 / 168 Output Total 200 / 200 800 / 1000 Balance 430 / 840 -260 / 580 168 / 168 Weight last 48 hrs Weight 52.481 kg Weight 61.507 kg Weight 61.507 kg Physical Exam 2 Narrative: General: Alert oriented x 3. laying in bed HEENT: PERRLA, pupils bilaterally equal and reactive, Chest: Normal vesicular breath sounds, no added sounds, equal good air entry bilaterally CVS: S1-S2 regular, no murmurs, no tachycardia, no gallops, no rubs Abdomen: Soft, nontender, bowel sounds present Neuro: No focal deficits grossly Extremities: stumps covered with bandage Neuro: SPEECH: speech normal Psych: APPEARANCE: Yes grossly normal ATTITUDE: Yes calm and Yes engaged ACTIVITY/MOTOR BEHAVIOR: Yes appropriate eye contact Data 09/16/24 06:05 09/14/24 03:37 Micro: Microbiology 09/14/24 15:06 Gram Stain - Final Knee - #1 Abscess Culture - Preliminary 09/12/24 23:25 Gram Stain - Final Leg - Left Wound Culture - Final Staphylococcus aureus 09/14/24 15:12 Gram Stain - Final Bone 09/14/24 15:07 Gram Stain - Final Knee - #1 A&P Assessment and plan (1) Sepsis: (2) Infection of amputation stump, left lower extremity: Plan Cherrie Solomon is a 44 year old female b/l BKA (L. in 07/2019 and the R. in 04/2023) due to diabetic osteomyelitis, DM2 but not on meds due to weight loss, diabetic retinopathy (now legally blind), CKDIIIB, diabetic gastroparesis, HTN, HLD, Depression, Generalized Anxiety d/o, Insomnia, who was brought to the ED on the night of 09/12/2025 w/ complaints of burning, throbbing pain in her lower pelvic area and down her legs. #Sepsis: Due to L. LE cellulitis and asbscess #L. BKA stump cellulitis and abscess #Concern for chronic osteomyelitis - F/u BCx and wound cx done in the ED. - start 1L NS at 250cc/hr, Vanc/Zosyn. #R. BKA mass on the knee: - Defer to Surgery to evaluate. #Transaminases: Monitor response after fluid administration. #CKDIIIB: Montior renal fxn. #HTN: Hold home meds at this time. #HLD?: She says she does not have hyperlipidemia; although, it is in her chart. #DM2: She states that she no longer takes medications -Will monitor blood glucose. Follow-up A1c. Hypoglycemic protocol ordered. #Diabetic gastroparesis -Resume Reglan #Diabetic Neuropathy: Resume home meds: Duloxetin & Pregabalin # Depression, Generalized Anxiety d/o, Insomnia: On Paroxetine also - held #She says that she also has a diagnosis of bipolar disorder #Resume Ropinirole and Cylobenzaprine - Phantom leg? #GERD: Resume home Pantoprazole. #Anemia of chronic disease: Monitor cbc DVT ppx: Lovenox GI ppx: PPI ordered 09/14/2024 CT bilateral lower extremities pending. ? IV infiltrated. Awaiting for ultrasound-guided IV. ? Continue management as per assessment plan above. ? Continue Vanco and Zosyn 09/15/2024 -Discussed with Dr. Nelson in detail. At this point patient is status post incision and drainage of left and right lower extremity abscesses. There was left distal tibial bone biopsy also performed. Daily dressing changes as per general surgery. ? Patient will need long-term antibiotics going forward to treat osteomyelitis. Bone biopsy has been obtained and is pending at this time ? Consult infectious disease. ? Should patient fail antibiotics and if there is a recommendation from infectious disease then [id number] amputation may be considered. Patient to follow-up with Dr. Nelson as an outpatient after discharge. ? Await ID consult for further recommendations. ? Preliminary report of culture does show Staph aureus, MRSA not ruled out. Will continue Vanco and Zosyn at this time. -Discussed with Dr. Emery and Dr. Nelson over the phone. Will await final recommendations. 09/16/2024 -Awaiting for screening from select facility. ? Awaiting biopsy results. ? Appreciate infectious disease consultation. ? Continue VAC and Zosyn at this time as per ID recommendations. ? Patient to follow-up at [facility] going forward. ? She may require above-knee amputation if she feels antibiotics. ? Await culture results for further management decisions. Attestations 2 Medical Necessity Statement*: Osteomyelitis. Will need to have antibiotics set up prior to discharge. Diagnoses Sepsis A41.9 Infection of amputation stump, left lower extremity T87.44
--- NOTE | 2024-09-16 14:47 | P.PN_ITS ---
Subjective 2 Subjective: Patient seen and examined. Pain controlled. No complaints. Culture is not back yet Vitals/I&O/Wt Last Vital Signs Temp 98.4 F 09/16/24 11:24 Pulse 94 09/16/24 11:24 Resp 16 09/16/24 12:09 BP 158/84 09/16/24 11:24 Pulse Ox 99 09/16/24 12:09 O2 Del Method Room Air 09/16/24 11:24 09/15/24 09/16/24 09/16/24 22:59 06:59 14:59 Intake Total 630 / 1040 540 / 1580 168 / 168 Output Total 200 / 200 800 / 1000 Balance 430 / 840 -260 / 580 168 / 168 Weight last 48 hrs Weight 115 lb 11.2 oz Weight 135 lb 9.6 oz Weight 135 lb 9.6 oz Physical Exam 2 Narrative: Acute distress, awake alert and oriented x 3 Extremities: No erythema on either lower extremity. Drainage from both prepatellar bursa's is purulent but less so Data 09/16/24 06:05 09/14/24 03:37 Micro: Microbiology 09/14/24 15:12 Gram Stain - Final Bone Tissue Culture - Preliminary 09/14/24 15:07 Gram Stain - Final Knee - #1 Abscess Culture - Preliminary Coag positive Staphylococcus 09/14/24 15:06 Gram Stain - Final Knee - #1 Abscess Culture - Preliminary 09/12/24 23:25 Gram Stain - Final Leg - Left Wound Culture - Final Staphylococcus aureus A&P Assessment and plan (1) Infection of amputation stump, left lower extremity: (2) Abscess of left lower extremity: (3) Abscess of right lower extremity: (4) Osteomyelitis: Plan Postoperative day #2 status post: Incision and drainage of left lower extremity abscess Incision and drainage of right lower extremity abscess Sharp excisional debridement of left lower extremity wound Left distal tibial bone biopsy Daily dressing changes Antibiotics per primary I am available for above-knee amputation(S), if necessary, but patient would benefit by keeping her knees if possible through long-term antibiotics Await culture results Medical management per primary Attestations 2 Medical Necessity Statement*: PER PRIMARY Coding Level of Care Code 19094 Diagnoses Infection of amputation stump, left lower extremity T87.44 Abscess of left lower extremity L02.416 Abscess of right lower extremity L02.415 Osteomyelitis M86.9
[2024-09-16 16:12] LABS: Glucose Point of Care 133 mg/dL (70-110)
[2024-09-16] MEDS: ropinirole 1 mg Tablet PO (20:27)
[2024-09-16 20:35] LABS: Glucose Point of Care 235 mg/dL (70-110)
[2024-09-17] VITALS (9 sets, daily range): BP systolic 158–186; BP diastolic 85–108; PULSE 84–96; RESP 16–20; TEMP 36.7–36.8; O2SAT 97–100
--- NOTE | 2024-09-17 | XR_ITS ---
WS: [id number] Exam: XR chest 1V portable [id number] Date/Time of Exam: 09/17/2024 12:00 AM Reason For Exam: PICC LINE INSERTION Comparison 05/24/2024. Right-sided PICC line ends at the cavoatrial junction in good position. The lungs are fully inflated and clear. Normal cardiomediastinal silhouette for technique. Normal bony structures. XR/XR chest 1V portable [id number] IMPRESSION: 1. Right-sided PICC line in satisfactory position. No acute finding in the ches t.
[2024-09-17] MEDS: oxyCODONE 5 mg IR Tab/Cap 10 MG PO ×4 (01:31→21:48)
[2024-09-17] MEDS: VANCOMYCIN ADD-Vantage 1,000 MG in 0.9% NaCl ADD-Vantage 250 ML 250 MG IV (01:31)
[2024-09-17] MEDS: piperacillin-tazobactam 3.375 GM in sodium chloride 0.9% (plus) 50 ML IV (04:54)
--- NOTE | 2024-09-17 06:07 | PC.NURSE ---
THIS RN WENT TO ASSESS PT AND GIVE 0200 ABX. UPON ENTERING ROOM PT WAS CRYING AND HITTING HER HEAD ON THE SIDE RAIL OF THE BED AND LEFT LEG DRESSING WAS ON THE FLOOR. THIS RN ASKED THE PT WHAT WAS WRONG AND PT STATED I HURT SO BAD AND JUST WANT THE PAIN TO STOP. THIS RN GOT THE PAIN MEDICATION AND ADMINISTERED IT WITH THE ABX. THIS RN REDRESSED THE LEFT LEG. WHILE THIS RN WAS REDRESSING THE LEG PT WAS CONTINUING TO SCREAM OUT IN PAIN AND CONTINUED TO HIT HER HEAD AGAINST THE SIDE RAIL. THIS RN ATTEMPTED TO REDIRECT PT TO TAKE SOME DEEP BREATHS AND WATCH TV TO RELAX. PT SAID NOTHING WORKS. I NEED A PAIN SHOT THIS RN EXPLAINED THAT ORAL MEDICATIONS TAKE LONGER TO KICK IN AND I WILL REASSESS HER PAIN IN 30 MINS BEFORE WE TRY SOMETHING ELSE. WHEN THIS RN WENT TO REASSESS PT WAS SLEEPING COMFORTABLY IN THE BED. THIS RN WILL CONTINUE TO MONITOR UNTIL THE END OF THIS RNS SHIFT.
[2024-09-17 07:19] LABS: Glucose Point of Care 152 mg/dL (70-110)
[2024-09-17] MEDS: HYDROmorphone 1 mg/mL INJ 1 mL IVP ×2 (08:46→13:51)
[2024-09-17] MEDS: cyclobenzaprine 10 mg Tablet PO ×3 (08:48→21:10)
[2024-09-17] MEDS: pantoprazole DR 40 mg Tablet PO (08:48)
[2024-09-17] MEDS: sennosides 8.6 mg Tablet 17.2 MG PO (08:50)
[2024-09-17] MEDS: duloxetine 20 mg Capsule PO ×2 (08:51→17:26)
[2024-09-17] MEDS: docusate sodium 100 mg Capsule 200 MG PO (08:52)
[2024-09-17] MEDS: pregabalin 50 mg Capsule PO ×2 (08:52→17:26)
--- NOTE | 2024-09-17 09:04 | PM.PN ---
Subjective Subjective: Infectious disease progress note. Patient reported pain overnight. Currently it is stable. No new changes otherwise. No fever no leukocytosis. Medications: Reviewed: Yes Vitals/I&O/Wt Last Vital Signs Temp 98.1 F 09/17/24 04:57 Pulse 88 09/17/24 04:57 Resp 17 09/17/24 08:46 BP 158/89 09/17/24 04:57 Pulse Ox 99 09/17/24 08:46 O2 Del Method Room Air 09/17/24 04:57 09/16/24 09/17/24 09/17/24 22:59 06:59 14:59 Intake Total 400 / 686 418 / 1104 50 / 50 Balance 400 / 686 418 / 1104 50 / 50 Weight last 48 hrs Weight 38.725 kg Weight 52.481 kg Physical Exam Narrative: General: No acute distress, AO x3, she is blind HEENT: PERRLA, pupils bilaterally equal and reactive, pallors not present Chest: Normal vesicular breath sounds, no added sounds, equal good air entry bilaterally CVS: S1-S2 regular, no murmurs, no tachycardia, no gallops, no rubs Abdomen: Soft, nontender, no organomegaly, bowel sounds present Neuro: No focal deficits, no facial deformity, AO x3, power 5/5 in all limbs 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 Data 09/16/24 06:05 09/14/24 03:37 Micro: Microbiology 09/14/24 15:07 Gram Stain - Final Knee - #1 Anaerobic Culture - Preliminary Abscess Culture - Preliminary Coag positive Staphylococcus 09/14/24 15:12 Gram Stain - Final Bone Anaerobic Culture - Preliminary Tissue Culture - Preliminary 09/14/24 15:06 Gram Stain - Final Knee - #1 Anaerobic Culture - Preliminary Abscess Culture - Preliminary A&P Assessment and plan (1) Osteomyelitis of right lower extremity: Cellulitis with suspected osteomyelitis distal tibia stump. No drainable stump collections.Suspected infectious prepatellar bursitis with diffuse peripheral thick-walled enhancement.Dense vascular calcification. (2) Osteomyelitis of left lower extremity: Extensive destructive osteomyelitis involving the residual distal tibial shaft extending at least one third into the residual shaft. Additional osteomyelitis distal residual fibula. Dehiscence with cellulitis involving the soft tissue stump. Suspected prepatellar infectious bursitis with thick walled peripheral enhancement and diffuse surrounding enhancement and edema (3) Wound dehiscence: (4) Cellulitis: (5) Bursitis due to bacterial infection: Plan 44-year-old lady with multiple comorbidities as listed above presenting to the hospital with bilateral infectious prepatellar bursitis and bilateral osteomyelitis. associated left BKA wound dehiscence which has not healed since at least April 2024. Blood cultures negative thus far from September 12, 2023 Status post I&D by general surgery bilaterally, bone biopsy and culture taken on September 14, 2024 So far wound culture and Gram stain taken in the emergency room from the left BKA stump are with growth of MSSA. OR cultures from September 14 including left tibia culture, left knee prepatellar bursa cultures, right knee abscess cultures are currently pending, thus far no growth. Bone biopsy and cx from right side N/A. She is currently on treatment empirically with piperacillin and vancomycin which can continue for now. Once cultures are finalized, we will be able to design an antibiotic regimen for outpatient use. Patient is at high risk of antibiotic failure and progression to a higher level of amputation due to her noncompliance. If she continues to have the same lifestyle with weightbearing or dragging on her stumps, it is highly unlikely that her wounds will ever heal. Should she recover from this current episode she is likely to suffer from a recurrent cycle of wound dehiscence and osteomyelitis if nothing changes with her lifestyle. She understands but states that she takes care of young grandchildren who push her wheelchair around and therefore she feels safer being on the floor. noted vascular calcifications on imaging ? PAD Would recommend discharge to [facility] facility with wound care management capabilities when she is ready. will follow with results of cx September 17, 2024 OR cultures from September 14 with coag positive Staphylococcus, likely to be Staph aureus. Given that superficial cultures from the ER were with MSSA, anticipate OR cultures to be similar. Discontinue piperacillin/tazobactam. Continue vancomycin for now. Anticipate discharge with 6 weeks of IV cefazolin 2 g every 8 hours. In the unlikely event that the coag positive staph from September 14 ends up being MRSA, discharge antibiotic plan would be vancomycin IV every 24 hours Recommend antibiotic treatment for at least 6 weeks until October 29, 2024. While on antibiotics to obtain weekly CBC, creatinine, LFT, CRP and fax to ID clinic for review. Patient anticipated to be [facility] to [facility], this would be appropriate as she has very little support at home to be able to administer antibiotics. Would benefit from strict offloading measures and skilled wound care. Blood cultures negative to date, place PICC line to enable the above antibiotic course Will follow Attestations Medical Necessity Statement*: Per admitting Coding Level of Care Code Acute Code for [facility] Fwd Diagnoses Osteomyelitis of right lower extremity M86.9 Osteomyelitis of left lower extremity M86.9 Wound dehiscence T81.30XA Cellulitis L03.90 Bursitis due to bacterial infection M71.10; B96.89
[2024-09-17 11:08] LABS: Glucose Point of Care 153 mg/dL (70-110)
[2024-09-17 12:12] LABS: Bacillus cereus group Not Detected (NOT DETECT); Bacillus subtillis group Not Detected (NOT DETECT); Corynebacterium Not Detected (NOT DETECT); Cutibacterium acnes (P.acnes) Not Detected (NOT DETECT); Enterococcus Not Detected (NOT DETECT); Enterococcus faecalis Not Detected (NOT DETECT); Enterococcus faecium Not Detected (NOT DETECT); Lactobacillus species Not Detected (NOT DETECT); Listeria Not Detected (NOT DETECT); Listeria monocytogenes Not Detected (NOT DETECT); Micrococcus Not Detected (NOT DETECT); Pan Candida Not Detected (NOT DETECT); Pan Gram-Negative Not Detected (NOT DETECT); Staphylococcus epidermidis Not Detected (NOT DETECT); Staphylococcus lugdunensis Not Detected (NOT DETECT); Staphylococcus species Not Detected (NOT DETECT); Streptococcus agalactiae Not Detected (NOT DETECT); Streptococcus anginosus group Not Detected (NOT DETECT); Streptococcus pneumoniae Not Detected (NOT DETECT); Streptococcus pyogenes Not Detected (NOT DETECT); Streptococcus species Not Detected (NOT DETECT)
--- NOTE | 2024-09-17 12:16 | XR_ITS ---
WS: [id number] Exam: XR chest 1V portable [id number] Date/Time of Exam: 09/17/2024 12:16 PM Reason For Exam: post picc insertion Comparison 05/24/2024. Right-sided PICC line has been placed and appears to end near the cavoatrial junction in good positio n. The lungs are fully expanded and clear. Cardiomediastinal silhouette is unremarkable. Unremarkable bony structures. XR/XR chest 1V portable [id number] IMPRESSION: 1. Right-sided PICC line ending at the cavoatrial junction in good position. No acute process identified.
--- NOTE | 2024-09-17 12:50 | PC.NURSE ---
Single lumen PICC placed to right basilic vein. Referred to vascular access nurse for PICC placement due to meterman antibiotics. Risks and benefits discussed and informed consent obtained. Right arm assessed with basilic vein measuring 31 mm, straight, and apparent best choice for placement. Using sterile technique and MST, Basilic vein accessed x 1 stick. Mid-arm circumference measured 10 cm from right AC 24 cm. Trimmed cath 37 cm with 2 cm external length noted. CXR shows tip in cavoatrial junction, in good position for use per radiologist. Line secured with stat-lock. Insertion site covered with Biopatch and TSM. Report given to bedside nurse, Karlee WOOD.
--- NOTE | 2024-09-17 13:09 | P.PN_ITS ---
Subjective 2 Subjective: Patient seen and examined. Pain controlled Vitals/I&O/Wt Last Vital Signs Temp 98.3 F 09/17/24 07:37 Pulse 96 09/17/24 07:37 Resp 17 09/17/24 12:29 BP 180/108 09/17/24 07:37 Pulse Ox 99 09/17/24 12:29 O2 Del Method Room Air 09/17/24 07:37 09/16/24 09/17/24 09/17/24 22:59 06:59 14:59 Intake Total 400 / 686 418 / 1104 50 / 50 Balance 400 / 686 418 / 1104 50 / 50 Weight last 48 hrs Weight 85 lb 6 oz Weight 115 lb 11.2 oz Physical Exam 2 Narrative: Acute distress, awake alert and oriented x 3 Extremities: No erythema on either lower extremity. Drainage from both prepatellar bursa's is purulent but less so Data 09/16/24 06:05 09/14/24 03:37 Micro: Microbiology 09/14/24 15:07 Gram Stain - Final Knee - #1 Anaerobic Culture - Preliminary Abscess Culture - Preliminary Coag positive Staphylococcus 09/14/24 15:12 Gram Stain - Final Bone Anaerobic Culture - Preliminary Tissue Culture - Preliminary 09/14/24 15:06 Gram Stain - Final Knee - #1 Anaerobic Culture - Preliminary Abscess Culture - Preliminary A&P Assessment and plan (1) Infection of amputation stump, left lower extremity: (2) Abscess of left lower extremity: (3) Abscess of right lower extremity: (4) Osteomyelitis: Plan Postoperative day #3 status post: Incision and drainage of left lower extremity abscess Incision and drainage of right lower extremity abscess Sharp excisional debridement of left lower extremity wound Left distal tibial bone biopsy Daily dressing changes Antibiotics per primary I am available for above-knee amputation(S), if necessary, but patient would benefit by keeping her knees if possible through long-term antibiotics Await culture results Medical management per primary Attestations 2 Medical Necessity Statement*: PER PRIMARY Coding Level of Care Code 82277 Diagnoses Infection of amputation stump, left lower extremity T87.44 Abscess of left lower extremity L02.416 Abscess of right lower extremity L02.415 Osteomyelitis M86.9
[2024-09-17 14:24] LABS: Basophils % 0.6 %; Eosinophils % 0.7 %; Hematocrit 23.2 % (36-47); Lymphocytes # 0.8 10^3/uL (0.8-4.8); Lymphocytes % 15.1 %; Mean Corpuscular HGB Conc 31.5 g/dL (30-55); Mean Corpuscular Volume 92.1 fl (85-98); Mean Platelet Volume 8.4 fL (7.4-10.4); Monocytes # 0.4 10^3/uL (0.2-0.9); Monocytes % 7.4 %; Neutrophils # 4.12 10^3/uL (1.8-7.7); Neutrophils % 75.8 %; Nucleated Red Blood Cells % 0 %; Platelet Count 400 10^3/cmm (157-399); Red Blood Count 2.52 10^6/uL (3.85-5.65); White Blood Count 5.43 10^3/uL (3.29-11.43)
[2024-09-17 14:38] LABS: Anion Gap 16.7 (5-19); Blood Urea Nitrogen 14 mg/dL (6-20); Calcium 8.7 mg/dL (8.5-10.5); Carbon Dioxide 21 mmol/L (22-29); Chloride 99 mmol/L (98-107); Creatinine Clr Calc Pharmacy 26.8587; Glomerular Filtration Rate 34.7 mL/min (90-130); Glucose 109 mg/dL (65-115); Osmolality Calculated 277 mOsm/kg (285-295); Potassium 3.7 mmol/L (3.5-5.1); Sodium 133 mmol/L (136-145)
[2024-09-17] MEDS: ceFAZolin 2,000 mg SDV 2000 MG IVP (15:25)
--- NOTE | 2024-09-17 15:36 | P.PN_ITS ---
Subjective 2 Subjective: seen today patient complains of pain and requesting pain medication Vitals/I&O/Wt Last Vital Signs Temp 98.3 F 09/17/24 07:37 Pulse 96 09/17/24 07:37 Resp 17 09/17/24 12:29 BP 180/108 09/17/24 07:37 Pulse Ox 99 09/17/24 12:29 O2 Del Method Room Air 09/17/24 07:37 09/17/24 09/17/24 09/17/24 06:59 14:59 22:59 Intake Total 418 / 1104 50 / 50 Balance 418 / 1104 50 / 50 Weight last 48 hrs Weight 38.725 kg Weight 52.481 kg Physical Exam 2 Narrative: General: Alert oriented x 3. laying in bed HEENT: PERRLA, pupils bilaterally equal and reactive, Chest: Normal vesicular breath sounds, no added sounds, equal good air entry bilaterally CVS: S1-S2 regular, no murmurs, no tachycardia, no gallops, no rubs Abdomen: Soft, nontender, bowel sounds present Neuro: No focal deficits grossly Extremities: stumps covered with bandage Neuro: SPEECH: speech normal Psych: APPEARANCE: Yes grossly normal ATTITUDE: Yes calm and Yes engaged ACTIVITY/MOTOR BEHAVIOR: Yes appropriate eye contact Data 09/17/24 14:12 09/17/24 14:12 Micro: Microbiology 09/14/24 15:07 Gram Stain - Final Knee - #1 Anaerobic Culture - Preliminary Abscess Culture - Preliminary Coag positive Staphylococcus 09/14/24 15:12 Gram Stain - Final Bone Anaerobic Culture - Preliminary Tissue Culture - Preliminary 09/14/24 15:06 Gram Stain - Final Knee - #1 Anaerobic Culture - Preliminary Abscess Culture - Preliminary A&P Assessment and plan (1) Sepsis: (2) Infection of amputation stump, left lower extremity: Plan Cherrie Solomon is a 44 year old female b/l BKA (L. in 07/2019 and the R. in 04/2023) due to diabetic osteomyelitis, DM2 but not on meds due to weight loss, diabetic retinopathy (now legally blind), CKDIIIB, diabetic gastroparesis, HTN, HLD, Depression, Generalized Anxiety d/o, Insomnia, who was brought to the ED on the night of 09/12/2025 w/ complaints of burning, throbbing pain in her lower pelvic area and down her legs. #Sepsis: Due to L. LE cellulitis and asbscess #L. BKA stump cellulitis and abscess #Concern for chronic osteomyelitis - F/u BCx and wound cx done in the ED. - start 1L NS at 250cc/hr, Vanc/Zosyn. #R. BKA mass on the knee: - Defer to Surgery to evaluate. #Transaminases: Monitor response after fluid administration. #CKDIIIB: Montior renal fxn. #HTN: Hold home meds at this time. #HLD?: She says she does not have hyperlipidemia; although, it is in her chart. #DM2: She states that she no longer takes medications -Will monitor blood glucose. Follow-up A1c. Hypoglycemic protocol ordered. #Diabetic gastroparesis -Resume Reglan #Diabetic Neuropathy: Resume home meds: Duloxetin & Pregabalin # Depression, Generalized Anxiety d/o, Insomnia: On Paroxetine also - held #She says that she also has a diagnosis of bipolar disorder #Resume Ropinirole and Cylobenzaprine - Phantom leg? #GERD: Resume home Pantoprazole. #Anemia of chronic disease: Monitor cbc DVT ppx: Lovenox GI ppx: PPI ordered 09/14/2024 CT bilateral lower extremities pending. ? IV infiltrated. Awaiting for ultrasound-guided IV. ? Continue management as per assessment plan above. ? Continue Vanco and Zosyn 09/15/2024 -Discussed with Dr. Nelson in detail. At this point patient is status post incision and drainage of left and right lower extremity abscesses. There was left distal tibial bone biopsy also performed. Daily dressing changes as per general surgery. ? Patient will need long-term antibiotics going forward to treat osteomyelitis. Bone biopsy has been obtained and is pending at this time ? Consult infectious disease. ? Should patient fail antibiotics and if there is a recommendation from infectious disease then [id number] amputation may be considered. Patient to follow-up with Dr. Nelson as an outpatient after discharge. ? Await ID consult for further recommendations. ? Preliminary report of culture does show Staph aureus, MRSA not ruled out. Will continue Vanco and Zosyn at this time. -Discussed with Dr. Emery and Dr. Nelson over the phone. Will await final recommendations. 09/16/2024 -Awaiting for screening from select facility. ? Awaiting biopsy results. ? Appreciate infectious disease consultation. ? Continue VAC and Zosyn at this time as per ID recommendations. ? Patient to follow-up at [facility] going forward. ? She may require above-knee amputation if she feels antibiotics. ? Await culture results for further management decisions. 09/17/2024 -Awaiting for screening from select facility. ? Awaiting biopsy results. change abx per ID recs - place picc line today ? She may require above-knee amputation if she feels antibiotics. awaiting appropriate dc planning continue on oxy IR q6h Attestations 2 Medical Necessity Statement*: Osteomyelitis. Will need to have antibiotics set up prior to discharge. Diagnoses Sepsis A41.9 Infection of amputation stump, left lower extremity T87.44
[2024-09-17 16:57] LABS: Glucose Point of Care 160 mg/dL (70-110)
[2024-09-17 17:03] LABS: Basophils % 0.5 %; Eosinophils # 0.1 10^3/uL (0.0-0.8); Hematocrit 26.4 % (36-47); Lymphocytes # 1.1 10^3/uL (0.8-4.8); Lymphocytes % 18.1 %; Mean Corpuscular HGB Conc 31.4 g/dL (30-55); Mean Corpuscular Hemoglobin 29.1 pg (27-33); Mean Corpuscular Volume 92.6 fl (85-98); Mean Platelet Volume 8.3 fL (7.4-10.4); Monocytes # 0.4 10^3/uL (0.2-0.9); Monocytes % 6.5 %; Neutrophils % 73.6 %; Nucleated Red Blood Cells % 0 %; Platelet Count 453 10^3/cmm (157-399); Red Blood Count 2.85 10^6/uL (3.85-5.65); Red Cell Distribution Width 14.8 % (12.1-15.1); White Blood Count 5.85 10^3/uL (3.29-11.43)
[2024-09-17 20:51] LABS: Glucose Point of Care 167 mg/dL (70-110)
[2024-09-17] MEDS: ropinirole 1 mg Tablet PO (21:10)
--- NOTE | 2024-09-17 21:49 | PC.NURSE ---
At approximately 2114, this nurse found patient in the hallway crying and complaining of pain. This nurse informed patient she had Oxycodone at 1816 and the order is for every 6 hours so she could not have anymore until 16. Patient screamed that she could not wait that long. This nurse offered to help patient back to bed and get her some Tyelenol untl she could have more Oxycodone. Patient screamed at this nurse that Tyelenol does not help. This nurse messaged Dr. Gonzalez and informed him of the situation. He ordered to go ahead and give the Oxycodone early. This nurse gave patient Oxycodone 10mg at 2147. This nurse went to leave the room and patient started banging her head on the foot of the bed. When asked why she is behaving this way, patient yelled, I'm frustrated! I just want them to cut off both of my legs because nothing they are doing is going to work! Patient educated about the dangers of banging her head against the bed frame and then bed frame was padded. Patient is currently resting in bed and talking on the phone. Plan of care ongoing.
[2024-09-18] VITALS (9 sets, daily range): BP systolic 157–176; BP diastolic 67–94; PULSE 60–96; RESP 16–19; TEMP 36.7–36.9; O2SAT 93–100
[2024-09-18] MEDS: ceFAZolin 2,000 mg SDV 2000 MG IVP ×2 (00:07→05:30)
[2024-09-18] MEDS: LORazepam 2 mg/mL INJ 1 mL 1 MG IVP (02:54)
[2024-09-18] MEDS: oxyCODONE 5 mg IR Tab/Cap 10 MG PO ×3 (05:28→17:56)
[2024-09-18] MEDS: ondansetron 2 mg/ML SDV 2 mL 4 MG IVP (05:36)
[2024-09-18 06:05] LABS: Basophils % 0.3 %; Eosinophils # 0.1 10^3/uL (0.0-0.8); Eosinophils % 1.4 %; Hematocrit 25.7 % (36-47); Lymphocytes # 1.5 10^3/uL (0.8-4.8); Lymphocytes % 23.7 %; Mean Corpuscular HGB Conc 31.9 g/dL (30-55); Mean Corpuscular Hemoglobin 28.8 pg (27-33); Mean Corpuscular Volume 90.2 fl (85-98); Mean Platelet Volume 8.3 fL (7.4-10.4); Monocytes # 0.5 10^3/uL (0.2-0.9); Monocytes % 7.8 %; Neutrophils # 4.16 10^3/uL (1.8-7.7); Neutrophils % 66.3 %; Nucleated Red Blood Cells % 0 %; Platelet Count 472 10^3/cmm (157-399); Red Blood Count 2.85 10^6/uL (3.85-5.65); Red Cell Distribution Width 14.9 % (12.1-15.1); White Blood Count 6.28 10^3/uL (3.29-11.43)
[2024-09-18 06:23] LABS: Blood Urea Nitrogen 14 mg/dL (6-20); Calcium 9.2 mg/dL (8.5-10.5); Carbon Dioxide 22 mmol/L (22-29); Chloride 99 mmol/L (98-107); Creatinine Clr Calc Pharmacy 23.8744; Glomerular Filtration Rate 30.3 mL/min (90-130); Glucose 124 mg/dL (65-115); Osmolality Calculated 282 mOsm/kg (285-295); Sodium 135 mmol/L (136-145)
[2024-09-18] MEDS: HYDROmorphone 1 mg/mL INJ 1 mL IVP ×3 (08:29→20:49)
[2024-09-18] MEDS: pregabalin 50 mg Capsule PO (08:30)
[2024-09-18] MEDS: cyclobenzaprine 10 mg Tablet PO ×3 (08:30→20:49)
[2024-09-18] MEDS: duloxetine 20 mg Capsule PO ×2 (08:30→17:56)
[2024-09-18] MEDS: sennosides 8.6 mg Tablet 17.2 MG PO (08:30)
[2024-09-18] MEDS: docusate sodium 100 mg Capsule 200 MG PO (08:31)
[2024-09-18] MEDS: pantoprazole DR 40 mg Tablet PO (08:31)
[2024-09-18 11:09] LABS: Glucose Point of Care 145 mg/dL (70-110)
--- NOTE | 2024-09-18 14:33 | P.PN_ITS ---
Subjective 2 Subjective: Seen this morning. Patient states that she would like to consider bilateral [id number]-nlxo amputation if antibiotics do not start to work by Saturday. I discussed with her in detail that a longer trial of antibiotics would be recommended at this time. However she has a right to make a decision for declining a certain treatment and choosing another 1. I did tell her that above-knee amputations do poorly and there will be issues with healing and wound care going forward if proper care not taken. She says she understands the risks and benefits and has had a long talk with her as well and would like to proceed with [id number] amputation. She states she would like Dr. Nelson to do it and she has chosen him specifically to do the surgery. She is not interested in going to [facility] where she had her previous surgeries done. She would like to remain at [facility] for further treatment. She also went on to say that she would like to put [facility] referral process on hold at this time as she would like to talk to surgery regarding potentially having the procedure done instead of going to [facility] with [facility]. She also states that she is in a lot of pain secondary to osteomyelitis. She states she already has pain in her back which she has been dealing with for a long time and now this additional pain secondary to bone pain and stumps is worsening the entire situation. She is very frustrated and she knows that this osteomyelitis will not heal with antibiotics because she experiences same thing with her feet when she had them. She stated that antibiotics did not work and she had to proceed to amputation. She states before the osteomyelitis spreads further she would like to get the amputation done as soon as possible. She states that she will get prostheses thereafter. She also states that she will promise to take care of her surgical sites and will do what ever it takes to get them to heal. At this point she would like to discuss further with general surgery. Otherwise generally she is pleasant today and comfortable at this time in bed. She recently received pain medication. Has been afebrile overnight. Labs have been reviewed. Hemoglobin 8.2. Creatinine is 1.8. Vitals/I&O/Wt Last Vital Signs Temp 98.3 F 09/18/24 04:00 Pulse 88 09/18/24 10:50 Resp 17 09/18/24 12:08 BP 175/67 09/18/24 10:50 Pulse Ox 100 09/18/24 10:50 O2 Del Method Room Air 09/18/24 10:50 09/17/24 09/18/24 09/18/24 22:59 06:59 14:59 Intake Total 318 / 368 Output Total 0 / 0 Balance 318 / 368 Weight last 48 hrs Weight 38.725 kg Weight 38.725 kg Physical Exam 2 Narrative: General: Alert oriented x 3. Sitting up in bed. HEENT: PERRLA, pupils bilaterally equal and reactive, Chest: Normal vesicular breath sounds, no added sounds, equal good air entry bilaterally CVS: S1-S2 regular, no murmurs, no tachycardia, no gallops, no rubs Abdomen: Soft, nontender, bowel sounds present Neuro: No focal deficits grossly Extremities: stumps covered with bandage, mild bleeding noted at right stump Band-Aid site. Data 09/18/24 05:27 09/18/24 05:27 Micro: Microbiology 09/14/24 15:06 Gram Stain - Final Knee - #1 Anaerobic Culture - Preliminary Abscess Culture - Final 09/14/24 15:12 Gram Stain - Final Bone Anaerobic Culture - Preliminary Tissue Culture - Final 09/12/24 21:12 Blood Culture - Final Blood NO GROWTH AFTER 5 DAYS 09/12/24 21:12 Blood Culture - Final Blood NO GROWTH AFTER 5 DAYS 09/14/24 15:07 Gram Stain - Final Knee - #1 Anaerobic Culture - Preliminary Abscess Culture - Preliminary Coag positive Staphylococcus A&P Assessment and plan (1) Sepsis: (2) Infection of amputation stump, left lower extremity: Plan Cherrie Solomon is a 44 year old female b/l BKA (L. in 07/2019 and the R. in 04/2023) due to diabetic osteomyelitis, DM2 but not on meds due to weight loss, diabetic retinopathy (now legally blind), CKDIIIB, diabetic gastroparesis, HTN, HLD, Depression, Generalized Anxiety d/o, Insomnia, who was brought to the ED on the night of 09/12/2025 w/ complaints of burning, throbbing pain in her lower pelvic area and down her legs. #Sepsis: Due to L. LE cellulitis and asbscess #L. BKA stump cellulitis and abscess #Concern for chronic osteomyelitis - F/u BCx and wound cx done in the ED. - start 1L NS at 250cc/hr, Vanc/Zosyn. #R. BKA mass on the knee: - Defer to Surgery to evaluate. #Transaminases: Monitor response after fluid administration. #CKDIIIB: Montior renal fxn. #HTN: Hold home meds at this time. #HLD?: She says she does not have hyperlipidemia; although, it is in her chart. #DM2: She states that she no longer takes medications -Will monitor blood glucose. Follow-up A1c. Hypoglycemic protocol ordered. #Diabetic gastroparesis -Resume Reglan #Diabetic Neuropathy: Resume home meds: Duloxetin & Pregabalin # Depression, Generalized Anxiety d/o, Insomnia: On Paroxetine also - held #She says that she also has a diagnosis of bipolar disorder #Resume Ropinirole and Cylobenzaprine - Phantom leg? #GERD: Resume home Pantoprazole. #Anemia of chronic disease: Monitor cbc DVT ppx: Lovenox GI ppx: PPI ordered 09/14/2024 CT bilateral lower extremities pending. ? IV infiltrated. Awaiting for ultrasound-guided IV. ? Continue management as per assessment plan above. ? Continue Vanco and Zosyn 09/15/2024 -Discussed with Dr. Nelson in detail. At this point patient is status post incision and drainage of left and right lower extremity abscesses. There was left distal tibial bone biopsy also performed. Daily dressing changes as per general surgery. ? Patient will need long-term antibiotics going forward to treat osteomyelitis. Bone biopsy has been obtained and is pending at this time ? Consult infectious disease. ? Should patient fail antibiotics and if there is a recommendation from infectious disease then [id number] amputation may be considered. Patient to follow-up with Dr. Nelson as an outpatient after discharge. ? Await ID consult for further recommendations. ? Preliminary report of culture does show Staph aureus, MRSA not ruled out. Will continue Vanco and Zosyn at this time. -Discussed with Dr. Emery and Dr. Nelson over the phone. Will await final recommendations. 09/16/2024 -Awaiting for screening from [facility] facility. ? Awaiting biopsy results. ? Appreciate infectious disease consultation. ? Continue VAC and Zosyn at this time as per ID recommendations. ? Patient to follow-up at [facility] going forward. ? She may require above-knee amputation if she feels antibiotics. ? Await culture results for further management decisions. 09/17/2024 -Awaiting for screening from [facility] facility. ? Awaiting biopsy results. change abx per ID recs - place picc line today ? She may require above-knee amputation if she feels antibiotics. awaiting appropriate dc planning continue on oxy IR q6h 09/17/2024 -Awaiting for screening from [facility] facility. -Will discuss with general surgery regarding possible AKA as per patient's request. I personally believe that trial of antibiotics is very appropriate at this time however patient is not wanting to do that. Will talk to general surgery to discuss next plan of care. Continue antibiotics as per ID recs. PICC line was placed yesterday. ? She may require above-knee amputation if she feels antibiotics. awaiting appropriate dc planning continue on oxy IR q6h add dilaudid Attestations 2 Medical Necessity Statement*: Osteomyelitis. Will need to have antibiotics set up prior to discharge. Diagnoses Sepsis A41.9 Infection of amputation stump, left lower extremity T87.44
[2024-09-18 16:23] LABS: Basophils # 0.1 10^3/uL (0.0-0.1); Basophils % 0.9 %; Eosinophils # 0.1 10^3/uL (0.0-0.8); Eosinophils % 2.4 %; Lymphocytes # 1.2 10^3/uL (0.8-4.8); Lymphocytes % 21.7 %; Mean Corpuscular HGB Conc 31.3 g/dL (30-55); Mean Corpuscular Hemoglobin 28.2 pg (27-33); Mean Corpuscular Volume 90.2 fl (85-98); Mean Platelet Volume 8.6 fL (7.4-10.4); Monocytes # 0.4 10^3/uL (0.2-0.9); Monocytes % 8.1 %; Neutrophils # 3.59 10^3/uL (1.8-7.7); Neutrophils % 66.5 %; Nucleated Red Blood Cells % 0 %; Platelet Count 458 10^3/cmm (157-399); Red Blood Count 2.66 10^6/uL (3.85-5.65); Red Cell Distribution Width 14.9 % (12.1-15.1)
[2024-09-18 17:08] LABS: Glucose Point of Care 105 mg/dL (70-110)
[2024-09-18] MEDS: ropinirole 1 mg Tablet PO (20:49)
[2024-09-18 21:05] LABS: Glucose Point of Care 221 mg/dL (70-110)
[2024-09-19] VITALS (13 sets, daily range): BP systolic 149–178; BP diastolic 90–97; PULSE 74–90; RESP 15–20; TEMP 36.4–36.8; O2SAT 96–100
[2024-09-19] MEDS: oxyCODONE 5 mg IR Tab/Cap 10 MG PO ×4 (00:22→23:41)
[2024-09-19] MEDS: HYDROmorphone 1 mg/mL INJ 1 mL IVP ×3 (03:59→21:30)
[2024-09-19] MEDS: ondansetron 2 mg/ML SDV 2 mL 4 MG IVP ×2 (03:59→17:13)
--- NOTE | 2024-09-19 04:14 | ECG_ITS ---
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 Measurements Intervals [place] Rate: 90 P: 26 NH: 144 QRS: -4 QRSD: 89 T: 66 QT: 359 QTc: 441 Interpretive Statements SINUS RHYTHM Compared to ECG 05/28/2024 10:21:18 No significant changes Electronically Signed On 09-19-2024 13:17:21 OVEN BUILDER by Donal Johnson M.D. [email or web address]
[2024-09-19 04:28] LABS: Basophils % 0.6 %; Eosinophils # 0.2 10^3/uL (0.0-0.8); Hematocrit 26.2 % (36-47); Lymphocytes % 31.2 %; Mean Corpuscular HGB Conc 31.7 g/dL (30-55); Mean Corpuscular Hemoglobin 28.7 pg (27-33); Mean Corpuscular Volume 90.7 fl (85-98); Mean Platelet Volume 8.5 fL (7.4-10.4); Monocytes # 0.5 10^3/uL (0.2-0.9); Monocytes % 7.9 %; Neutrophils % 56.8 %; Nucleated Red Blood Cells % 0 %; Platelet Count 484 10^3/cmm (157-399); Red Blood Count 2.89 10^6/uL (3.85-5.65); Red Cell Distribution Width 14.7 % (12.1-15.1); White Blood Count 6.34 10^3/uL (3.29-11.43)
[2024-09-19 04:55] LABS: Anion Gap 15.4 (5-19); Blood Urea Nitrogen 14 mg/dL (6-20); Calcium 8.8 mg/dL (8.5-10.5); Carbon Dioxide 24 mmol/L (22-29); Chloride 98 mmol/L (98-107); Creatinine Clr Calc Pharmacy 26.8587; Glomerular Filtration Rate 34.7 mL/min (90-130); Glucose 99 mg/dL (65-115); Magnesium 1.9 mg/dL (1.7-2.3); Osmolality Calculated 277 mOsm/kg (285-295); Potassium 4.4 mmol/L (3.5-5.1); Sodium 133 mmol/L (136-145)
[2024-09-19 06:41] LABS: Glucose Point of Care 113 mg/dL (70-110)
[2024-09-19] MEDS: sennosides 8.6 mg Tablet 17.2 MG PO (09:32)
[2024-09-19] MEDS: cyclobenzaprine 10 mg Tablet PO ×3 (09:32→21:28)
[2024-09-19] MEDS: docusate sodium 100 mg Capsule 200 MG PO (09:32)
[2024-09-19] MEDS: pantoprazole DR 40 mg Tablet PO (09:32)
[2024-09-19] MEDS: duloxetine 20 mg Capsule PO ×2 (09:32→17:14)
[2024-09-19 12:05] LABS: Glucose Point of Care 110 mg/dL (70-110)
--- NOTE | 2024-09-19 16:07 | P.PN_ITS ---
Subjective 2 Subjective: Seen today patient resting comfortably in bed. Vitals/I&O/Wt Last Vital Signs Temp 97.6 F 09/19/24 12:00 Pulse 88 09/19/24 12:00 Resp 16 09/19/24 15:21 BP 164/97 09/19/24 12:00 Pulse Ox 100 09/19/24 12:00 O2 Del Method Room Air 09/19/24 12:00 O2 Flow Rate 2 09/19/24 08:00 09/19/24 09/19/24 09/19/24 06:59 14:59 22:59 Intake Total 240 / 240 Balance 240 / 240 Weight last 48 hrs Weight 38.725 kg Weight 38.725 kg Physical Exam 2 Narrative: General: Alert oriented x 3. Sitting up in bed. HEENT: PERRLA, pupils bilaterally equal and reactive, Chest: Normal vesicular breath sounds, no added sounds, equal good air entry bilaterally CVS: S1-S2 regular, no murmurs, no tachycardia, no gallops, no rubs Abdomen: Soft, nontender, bowel sounds present Neuro: No focal deficits grossly Extremities: stumps covered with bandage, mild bleeding noted at right stump Band-Aid site. Data 09/19/24 04:06 09/19/24 04:06 Micro: Microbiology 09/14/24 15:07 Gram Stain - Final Knee - #1 Anaerobic Culture - Preliminary Abscess Culture - Final Staphylococcus aureus 09/14/24 15:12 Gram Stain - Final Bone Anaerobic Culture - Preliminary Tissue Culture - Final 09/14/24 15:06 Gram Stain - Final Knee - #1 Anaerobic Culture - Preliminary Abscess Culture - Final A&P Assessment and plan (1) Sepsis: (2) Infection of amputation stump, left lower extremity: Plan Cherrie Solomon is a 44 year old female b/l BKA (L. in 07/2019 and the R. in 04/2023) due to diabetic osteomyelitis, DM2 but not on meds due to weight loss, diabetic retinopathy (now legally blind), CKDIIIB, diabetic gastroparesis, HTN, HLD, Depression, Generalized Anxiety d/o, Insomnia, who was brought to the ED on the night of 09/12/2025 w/ complaints of burning, throbbing pain in her lower pelvic area and down her legs. #Sepsis: Due to L. LE cellulitis and asbscess #L. BKA stump cellulitis and abscess #Concern for chronic osteomyelitis - F/u BCx and wound cx done in the ED. - start 1L NS at 250cc/hr, Vanc/Zosyn. #R. BKA mass on the knee: - Defer to Surgery to evaluate. #Transaminases: Monitor response after fluid administration. #CKDIIIB: Montior renal fxn. #HTN: Hold home meds at this time. #HLD?: She says she does not have hyperlipidemia; although, it is in her chart. #DM2: She states that she no longer takes medications -Will monitor blood glucose. Follow-up A1c. Hypoglycemic protocol ordered. #Diabetic gastroparesis -Resume Reglan #Diabetic Neuropathy: Resume home meds: Duloxetin & Pregabalin # Depression, Generalized Anxiety d/o, Insomnia: On Paroxetine also - held #She says that she also has a diagnosis of bipolar disorder #Resume Ropinirole and Cylobenzaprine - Phantom leg? #GERD: Resume home Pantoprazole. #Anemia of chronic disease: Monitor cbc DVT ppx: Lovenox GI ppx: PPI ordered 09/14/2024 CT bilateral lower extremities pending. ? IV infiltrated. Awaiting for ultrasound-guided IV. ? Continue management as per assessment plan above. ? Continue Vanco and Zosyn 09/15/2024 -Discussed with Dr. Nelson in detail. At this point patient is status post incision and drainage of left and right lower extremity abscesses. There was left distal tibial bone biopsy also performed. Daily dressing changes as per general surgery. ? Patient will need long-term antibiotics going forward to treat osteomyelitis. Bone biopsy has been obtained and is pending at this time ? Consult infectious disease. ? Should patient fail antibiotics and if there is a recommendation from infectious disease then [id number] amputation may be considered. Patient to follow-up with Dr. Nelson as an outpatient after discharge. ? Await ID consult for further recommendations. ? Preliminary report of culture does show Staph aureus, MRSA not ruled out. Will continue Vanco and Zosyn at this time. -Discussed with Dr. Emery and Dr. Nelson over the phone. Will await final recommendations. 09/16/2024 -Awaiting for screening from [facility] facility. ? Awaiting biopsy results. ? Appreciate infectious disease consultation. ? Continue VAC and Zosyn at this time as per ID recommendations. ? Patient to follow-up at [facility] going forward. ? She may require above-knee amputation if she feels antibiotics. ? Await culture results for further management decisions. 09/17/2024 -Awaiting for screening from [facility] facility. ? Awaiting biopsy results. change abx per ID recs - place picc line today ? She may require above-knee amputation if she feels antibiotics. awaiting appropriate dc planning continue on oxy IR q6h 09/18/2024 -Awaiting for screening from [facility] facility. -Will discuss with general surgery regarding possible AKA as per patient's request. I personally believe that trial of antibiotics is very appropriate at this time however patient is not wanting to do that. Will talk to general surgery to discuss next plan of care. Continue antibiotics as per ID recs. PICC line was placed yesterday. ? She may require above-knee amputation if she feels antibiotics. awaiting appropriate dc planning continue on oxy IR q6h add dilaudid 09/19/2024 -Awaiting placement to [facility]. Awaiting insurance authorization ? Awaiting to discuss with general surgery regarding amputation. She states that she would like to do that. However I did discuss with Dr. Nelson and he would prefer antibiotic treatment prior to any surgical option at this point. ? Awaiting discharge planning. Attestations 2 Medical Necessity Statement*: Osteomyelitis. Will need to have antibiotics set up prior to discharge. Diagnoses Sepsis A41.9 Infection of amputation stump, left lower extremity T87.44
[2024-09-19 16:19] LABS: Basophils % 0.7 %; Eosinophils # 0.2 10^3/uL (0.0-0.8); Hematocrit 23.3 % (36-47); Lymphocytes # 1.2 10^3/uL (0.8-4.8); Lymphocytes % 19.2 %; Mean Corpuscular HGB Conc 31.3 g/dL (30-55); Mean Corpuscular Hemoglobin 28.3 pg (27-33); Mean Corpuscular Volume 90.3 fl (85-98); Mean Platelet Volume 8.6 fL (7.4-10.4); Monocytes # 0.3 10^3/uL (0.2-0.9); Monocytes % 5.4 %; Neutrophils # 4.35 10^3/uL (1.8-7.7); Neutrophils % 71.2 %; Nucleated Red Blood Cells % 0 %; Platelet Count 442 10^3/cmm (157-399); Red Blood Count 2.58 10^6/uL (3.85-5.65); Red Cell Distribution Width 14.7 % (12.1-15.1)
[2024-09-19 17:11] LABS: Glucose Point of Care 238 mg/dL (70-110)
[2024-09-19] MEDS: VANCOMYCIN ADD-Vantage 1,000 MG in 0.9% NaCl ADD-Vantage 250 ML 250 MG IV (17:13)
[2024-09-19] MEDS: ceFAZolin 2,000 mg SDV 2000 MG IVP ×2 (17:14→23:32)
[2024-09-19 21:24] LABS: Glucose Point of Care 175 mg/dL (70-110)
[2024-09-19] MEDS: quetiapine 100 mg Tablet PO (21:28)
[2024-09-19] MEDS: ropinirole 1 mg Tablet PO (21:28)
[2024-09-20] VITALS (9 sets, daily range): BP systolic 128–186; BP diastolic 72–99; PULSE 83–96; RESP 14–18; TEMP 36.4–36.6; O2SAT 94–100
[2024-09-20] MEDS: HYDROmorphone 1 mg/mL INJ 1 mL IVP ×4 (03:22→22:05)
[2024-09-20 03:35] LABS: Basophils % 0.5 %; Eosinophils # 0.2 10^3/uL (0.0-0.8); Lymphocytes # 1.6 10^3/uL (0.8-4.8); Lymphocytes % 28.5 %; Mean Corpuscular HGB Conc 31.3 g/dL (30-55); Mean Corpuscular Hemoglobin 28.2 pg (27-33); Mean Corpuscular Volume 90.2 fl (85-98); Mean Platelet Volume 8.5 fL (7.4-10.4); Monocytes # 0.4 10^3/uL (0.2-0.9); Monocytes % 7.3 %; Neutrophils # 3.46 10^3/uL (1.8-7.7); Neutrophils % 60.2 %; Nucleated Red Blood Cells % 0 %; Platelet Count 434 10^3/cmm (157-399); Red Blood Count 2.66 10^6/uL (3.85-5.65); Red Cell Distribution Width 14.8 % (12.1-15.1); White Blood Count 5.75 10^3/uL (3.29-11.43)
[2024-09-20 03:58] LABS: Anion Gap 15.1 (5-19); Blood Urea Nitrogen 19 mg/dL (6-20); Calcium 8.5 mg/dL (8.5-10.5); Carbon Dioxide 25 mmol/L (22-29); Chloride 102 mmol/L (98-107); Creatinine Clr Calc Pharmacy 23.8744; Glomerular Filtration Rate 30.3 mL/min (90-130); Glucose 104 mg/dL (65-115); Magnesium 1.8 mg/dL (1.7-2.3); Osmolality Calculated 289 mOsm/kg (285-295); Potassium 4.1 mmol/L (3.5-5.1); Sodium 138 mmol/L (136-145)
[2024-09-20 06:30] LABS: Glucose Point of Care 122 mg/dL (70-110)
[2024-09-20] MEDS: sennosides 8.6 mg Tablet 17.2 MG PO (07:58)
[2024-09-20] MEDS: pantoprazole DR 40 mg Tablet PO (07:58)
[2024-09-20] MEDS: ceFAZolin 2,000 mg SDV 2000 MG IVP ×2 (07:58→16:33)
[2024-09-20] MEDS: cyclobenzaprine 10 mg Tablet PO ×2 (07:59→14:50)
[2024-09-20] MEDS: duloxetine 20 mg Capsule PO ×2 (07:59→16:37)
[2024-09-20] MEDS: docusate sodium 100 mg Capsule 200 MG PO (07:59)
[2024-09-20] MEDS: oxyCODONE 5 mg IR Tab/Cap 10 MG PO (10:19)
[2024-09-20 12:08] LABS: Glucose Point of Care 155 mg/dL (70-110)
--- NOTE | 2024-09-20 13:28 | P.PN_ITS ---
Subjective 2 Subjective: Seen today. present at bedside. Patient is awaiting to speak to Dr. Nelson. He stated that the [facility] facility will call her again on Saturday to get an update. She would like to discuss with surgeon regarding amputation prior to making further decisions. At this time. Continue antibiotics. Vitals/I&O/Wt Last Vital Signs Temp 97.5 F L 09/20/24 12:00 Pulse 83 09/20/24 12:00 Resp 15 09/20/24 12:00 BP 171/90 09/20/24 12:00 Pulse Ox 99 09/20/24 12:00 O2 Del Method Room Air 09/20/24 12:00 O2 Flow Rate 2 09/19/24 08:00 09/19/24 09/20/24 09/20/24 22:59 06:59 14:59 Intake Total 490 / 730 Output Total 240 / 240 Balance 490 / 730 -240 / 490 Weight last 48 hrs Weight 38.725 kg Weight 38.725 kg Physical Exam 2 Narrative: General: Alert oriented x 3. Sitting up in bed. HEENT: PERRLA, pupils bilaterally equal and reactive, Chest: Normal vesicular breath sounds, no added sounds, equal good air entry bilaterally CVS: S1-S2 regular, no murmurs, no tachycardia, no gallops, no rubs Abdomen: Soft, nontender, bowel sounds present Neuro: No focal deficits grossly Extremities: stumps covered with bandage, mild bleeding noted at right stump Band-Aid site. Data 09/20/24 03:26 09/20/24 03:26 Micro: Microbiology 09/14/24 15:06 Gram Stain - Final Knee - #1 Anaerobic Culture - Preliminary Abscess Culture - Final 09/14/24 15:07 Gram Stain - Final Knee - #1 Anaerobic Culture - Preliminary Abscess Culture - Final Staphylococcus aureus 09/14/24 15:12 Gram Stain - Final Bone Anaerobic Culture - Preliminary Tissue Culture - Final A&P Assessment and plan (1) Sepsis: (2) Infection of amputation stump, left lower extremity: Plan Cherrie Solomon is a 44 year old female b/l BKA (L. in 07/2019 and the R. in 04/2023) due to diabetic osteomyelitis, DM2 but not on meds due to weight loss, diabetic retinopathy (now legally blind), CKDIIIB, diabetic gastroparesis, HTN, HLD, Depression, Generalized Anxiety d/o, Insomnia, who was brought to the ED on the night of 09/12/2025 w/ complaints of burning, throbbing pain in her lower pelvic area and down her legs. #Sepsis: Due to L. LE cellulitis and asbscess #L. BKA stump cellulitis and abscess #Concern for chronic osteomyelitis - F/u BCx and wound cx done in the ED. - start 1L NS at 250cc/hr, Vanc/Zosyn. #R. BKA mass on the knee: - Defer to Surgery to evaluate. #Transaminases: Monitor response after fluid administration. #CKDIIIB: Montior renal fxn. #HTN: Hold home meds at this time. #HLD?: She says she does not have hyperlipidemia; although, it is in her chart. #DM2: She states that she no longer takes medications -Will monitor blood glucose. Follow-up A1c. Hypoglycemic protocol ordered. #Diabetic gastroparesis -Resume Reglan #Diabetic Neuropathy: Resume home meds: Duloxetin & Pregabalin # Depression, Generalized Anxiety d/o, Insomnia: On Paroxetine also - held #She says that she also has a diagnosis of bipolar disorder #Resume Ropinirole and Cylobenzaprine - Phantom leg? #GERD: Resume home Pantoprazole. #Anemia of chronic disease: Monitor cbc DVT ppx: Lovenox GI ppx: PPI ordered 09/14/2024 CT bilateral lower extremities pending. ? IV infiltrated. Awaiting for ultrasound-guided IV. ? Continue management as per assessment plan above. ? Continue Vanco and Zosyn 09/15/2024 -Discussed with Dr. Nelson in detail. At this point patient is status post incision and drainage of left and right lower extremity abscesses. There was left distal tibial bone biopsy also performed. Daily dressing changes as per general surgery. ? Patient will need long-term antibiotics going forward to treat osteomyelitis. Bone biopsy has been obtained and is pending at this time ? Consult infectious disease. ? Should patient fail antibiotics and if there is a recommendation from infectious disease then [id number]-vnf-ghfr amputation may be considered. Patient to follow-up with Dr. Nelson as an outpatient after discharge. ? Await ID consult for further recommendations. ? Preliminary report of culture does show Staph aureus, MRSA not ruled out. Will continue Vanco and Zosyn at this time. -Discussed with Dr. Emery and Dr. Nelson over the phone. Will await final recommendations. 09/16/2024 -Awaiting for screening from [facility]. ? Awaiting biopsy results. ? Appreciate infectious disease consultation. ? Continue VAC and Zosyn at this time as per ID recommendations. ? Patient to follow-up at [facility] going forward. ? She may require above-knee amputation if she feels antibiotics. ? Await culture results for further management decisions. 09/17/2024 -Awaiting for screening from [facility] facility. ? Awaiting biopsy results. change abx per ID recs - place picc line today ? She may require above-knee amputation if she feels antibiotics. awaiting appropriate dc planning continue on oxy IR q6h 09/18/2024 -Awaiting for screening from [facility]. -Will discuss with general surgery regarding possible AKA as per patient's request. I personally believe that trial of antibiotics is very appropriate at this time however patient is not wanting to do that. Will talk to general surgery to discuss next plan of care. Continue antibiotics as per ID recs. PICC line was placed yesterday. ? She may require above-knee amputation if she feels antibiotics. awaiting appropriate dc planning continue on oxy IR q6h add dilaudid 09/19/2024 -Awaiting placement to [facility]. Awaiting insurance authorization ? Awaiting to discuss with general surgery regarding amputation. She states that she would like to do that. However I did discuss with Dr. Nelson and he would prefer antibiotic treatment prior to any surgical option at this point. ? Awaiting discharge planning. 09/20/2024 -Awaiting placement to [facility]. Awaiting insurance authorization ? Awaiting to discuss with general surgery regarding amputation. She states that she would like to do that. However I did discuss with Dr. Nelson on September 18 and he would prefer antibiotic treatment prior to any surgical option at this point. ? Awaiting discharge planning. Continue cefazolin and vancomycin as per ID recommendations at this time. Attestations 2 Medical Necessity Statement*: Osteomyelitis. Will need to have antibiotics set up prior to discharge. Diagnoses Sepsis A41.9 Infection of amputation stump, left lower extremity T87.44
[2024-09-20] MEDS: hyDRALAzine 20 mg/mL INJ 1 mL 10 MG IVP (16:31)
[2024-09-20] MEDS: VANCOMYCIN ADD-Vantage 1,000 MG in 0.9% NaCl ADD-Vantage 250 ML 250 MG IV (16:33)
[2024-09-20 16:36] LABS: Glucose Point of Care 109 mg/dL (70-110)
[2024-09-20] MEDS: HYDROmorphone 1 mg/mL INJ 1 mL 0.5 MG IVP (17:12)
[2024-09-20 20:33] LABS: Glucose Point of Care 358 mg/dL (70-110)
[2024-09-20 20:33] LABS: Glucose Point of Care 134 mg/dL (70-110)
--- NOTE | 2024-09-20 20:35 | PC.NURSE ---
This nurse at bedside to administer scheduled medications. Patient asked this nurse to wrap her IV when I was done. This nurse replied yes, no problem. Patient then stated do you have my pain medications? This nurse informed patient that she was not due for any until 2250. Patient then started yelling at nurse stating what do you mean I cant have pain meds. My last scheduled dose was at like noon. This nurse informed patient that the last dose of dilaudid was given at 1450 and she cannot recieve anymore until 8 hours from that time. Patient continued yelling at this nurse and said and they arent giving me anything for anxiety either. this is fucking stupid. Noone wants to help me. This nurse stated okay, I am trying to help you so please do not yell at me. Do you take anything at home for anxiety so I can ask the doctor for something for you? Patient stated yes but it doesnt fucking help me either. Patient then proceeded to rip her hospital gown off and stated fuck this shit. I am getting in the shower. I am so fucking done. Noone wants to help me in this fucking place. Patient hopped off the bed and crawled to the shower. This nurse asked patient to wrap her PICC line before getting in the shower and patient stated no, I dont fucking care and im not taking my fucking medications. and continued to crawl to the shower. Charge nurse notified of encounter.
--- NOTE | 2024-09-20 21:31 | PC.NURSE ---
Patient's dressings on bilateral wounds are off and leaking blood onto the floor. This nurse asked patient if i could redress them so they were not bleeding all over the place. Patient cut nurse off and stated you're not fucking touching them until I get pain medicine. Nelson ordered me a special dose for when they get dressed. Patient informed that there is no special dose and that is three times a day, every 8 hours. Patient stated then you're not fucking touching them.
--- NOTE | 2024-09-20 22:15 | PC.NURSE ---
BEHAVIOR NOTE: Patient seen crawling out to the nurses station, trailing blood behind her. Patient is crying for her pain medication. Physician was contacted by this nurse about her behaviors and giving pain medication early. Physician okayed to give Dilaudid early. Patient was redirected to her room to give medication. Plan of care ongoing.
[2024-09-20] MEDS: ondansetron 2 mg/ML SDV 2 mL 4 MG IVP (22:24)
[2024-09-21] VITALS (9 sets, daily range): BP systolic 158–207; BP diastolic 86–103; PULSE 98–103; RESP 15–20; TEMP 36.6–37; O2SAT 92–100
[2024-09-21] MEDS: oxyCODONE 5 mg IR Tab/Cap 10 MG PO ×3 (00:07→19:28)
[2024-09-21] MEDS: ceFAZolin 2,000 mg SDV 2000 MG IVP ×3 (00:07→15:51)
[2024-09-21 05:36] LABS: Basophils % 0.5 %; Eosinophils # 0.1 10^3/uL (0.0-0.8); Eosinophils % 0.6 %; Hematocrit 26.3 % (36-47); Lymphocytes # 0.9 10^3/uL (0.8-4.8); Lymphocytes % 11.8 %; Mean Corpuscular Hemoglobin 28.1 pg (27-33); Mean Corpuscular Volume 93.6 fl (85-98); Mean Platelet Volume 8.7 fL (7.4-10.4); Monocytes # 0.4 10^3/uL (0.2-0.9); Monocytes % 4.8 %; Neutrophils # 6.41 10^3/uL (1.8-7.7); Neutrophils % 81.5 %; Nucleated Red Blood Cells % 0 %; Platelet Count 450 10^3/cmm (157-399); Red Blood Count 2.81 10^6/uL (3.85-5.65); Red Cell Distribution Width 14.8 % (12.1-15.1); White Blood Count 7.87 10^3/uL (3.29-11.43)
[2024-09-21] MEDS: HYDROmorphone 1 mg/mL INJ 1 mL IVP ×2 (05:39→19:27)
[2024-09-21 05:50] LABS: Blood Urea Nitrogen 17 mg/dL (6-20); Calcium 8.9 mg/dL (8.5-10.5); Carbon Dioxide 23 mmol/L (22-29); Chloride 100 mmol/L (98-107); Creatinine Clr Calc Pharmacy 25.2788; Glomerular Filtration Rate 32.4 mL/min (90-130); Glucose 173 mg/dL (65-115); Osmolality Calculated 290 mOsm/kg (285-295); Sodium 137 mmol/L (136-145)
[2024-09-21 05:57] LABS: Anion Gap 18.1 (5-19); Potassium 4.1 mmol/L (3.5-5.1)
[2024-09-21 06:02] LABS: Glucose Point of Care 135 mg/dL (70-110)
[2024-09-21] MEDS: docusate sodium 100 mg Capsule 200 MG PO (08:52)
[2024-09-21] MEDS: sennosides 8.6 mg Tablet 17.2 MG PO (08:52)
[2024-09-21] MEDS: pantoprazole DR 40 mg Tablet PO (08:52)
[2024-09-21] MEDS: duloxetine 20 mg Capsule PO ×2 (08:52→17:44)
[2024-09-21] MEDS: cyclobenzaprine 10 mg Tablet PO ×3 (08:52→19:28)
[2024-09-21 13:31] LABS: C Reactive Protein 23.7 mg/L (0.0-4.9)
[2024-09-21 16:35] LABS: Glucose Point of Care 171 mg/dL (70-110)
--- NOTE | 2024-09-21 17:22 | P.PN_ITS ---
Subjective 2 Subjective: Patient is refusing to go to group home facility at the time of discharge in spite of appropriate counseling and reasoning for the same. She simply states that she does not want to go far away to [place] where she will be unable to see her family as they do not have a way of transportation to [place]. She is noted to be crawling on the floor earlier this morning, similar to what she has been doing on previous days. Medications: Reviewed: Yes Vitals/I&O/Wt Last Vital Signs Temp 98.0 F 09/21/24 15:50 Pulse 98 09/21/24 15:50 Resp 15 09/21/24 15:50 BP 194/98 09/21/24 15:50 Pulse Ox 100 09/21/24 15:50 O2 Del Method Room Air 09/21/24 15:50 O2 Flow Rate 2 09/19/24 08:00 09/21/24 09/21/24 09/21/24 06:59 14:59 22:59 Intake Total 350 / 840 221 / 221 Balance 350 / 840 221 / 221 Weight last 48 hrs Weight 38.725 kg Weight 38.725 kg Physical Exam 2 Narrative: General: No acute distress, AO x3, she is blind HEENT: PERRLA, pupils bilaterally equal and reactive, pallors not present Chest: Normal vesicular breath sounds, no added sounds, equal good air entry bilaterally CVS: S1-S2 regular, no murmurs, no tachycardia, no gallops, no rubs Abdomen: Soft, nontender, no organomegaly, bowel sounds present Neuro: No focal deficits, no facial deformity, AO x3, power 5/5 in all limbs 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 Data 09/21/24 04:42 09/21/24 04:42 Micro: Microbiology 09/14/24 15:12 Gram Stain - Final Bone Anaerobic Culture - Preliminary Tissue Culture - Final 09/14/24 15:06 Gram Stain - Final Knee - #1 Anaerobic Culture - Preliminary Abscess Culture - Final 09/14/24 15:07 Gram Stain - Final Knee - #1 Anaerobic Culture - Preliminary Abscess Culture - Final Staphylococcus aureus A&P Assessment and plan (1) Osteomyelitis of right lower extremity: Cellulitis with suspected osteomyelitis distal tibia stump. No drainable stump collections.Suspected infectious prepatellar bursitis with diffuse peripheral thick-walled enhancement.Dense vascular calcification. (2) Osteomyelitis of left lower extremity: Extensive destructive osteomyelitis involving the residual distal tibial shaft extending at least one third into the residual shaft. Additional osteomyelitis distal residual fibula. Dehiscence with cellulitis involving the soft tissue stump. Suspected prepatellar infectious bursitis with thick walled peripheral enhancement and diffuse surrounding enhancement and edema (3) Wound dehiscence: (4) Cellulitis: (5) Bursitis due to bacterial infection: Plan 44-year-old lady with multiple comorbidities as listed above presenting to the hospital with bilateral infectious prepatellar bursitis and bilateral osteomyelitis. associated left BKA wound dehiscence which has not healed since at least April 2024. Blood cultures negative thus far from September 12, 2023 Status post I&D by general surgery bilaterally, bone biopsy and culture taken on September 14, 2024 So far wound culture and Gram stain taken in the emergency room from the left BKA stump are with growth of MSSA. OR cultures from September 14 including left tibia culture, left knee prepatellar bursa cultures, right knee abscess cultures are currently pending, thus far no growth. Bone biopsy and cx from right side N/A. She is currently on treatment empirically with piperacillin and vancomycin which can continue for now. Once cultures are finalized, we will be able to design an antibiotic regimen for outpatient use. Patient is at high risk of antibiotic failure and progression to a higher level of amputation due to her noncompliance. If she continues to have the same lifestyle with weightbearing or dragging on her stumps, it is highly unlikely that her wounds will ever heal. Should she recover from this current episode she is likely to suffer from a recurrent cycle of wound dehiscence and osteomyelitis if nothing changes with her lifestyle. She understands but states that she takes care of young grandchildren who push her wheelchair around and therefore she feels safer being on the floor. noted vascular calcifications on imaging ? PAD Would recommend discharge to group home facility with wound care management capabilities when she is ready. will follow with results of cx September 17, 2024 OR cultures from September 14 with coag positive Staphylococcus, likely to be Staph aureus. Given that superficial cultures from the ER were with MSSA, anticipate OR cultures to be similar. Discontinue piperacillin/tazobactam. Continue vancomycin for now. Anticipate discharge with 6 weeks of IV cefazolin 2 g every 8 hours. In the unlikely event that the coag positive staph from September 14 ends up being MRSA, discharge antibiotic plan would be vancomycin IV every 24 hours Recommend antibiotic treatment for at least 6 weeks until October 29, 2024. While on antibiotics to obtain weekly CBC, creatinine, LFT, CRP and fax to ID clinic for review. Patient anticipated to be discharged to [facility], this would be appropriate as she has very little support at home to be able to administer antibiotics. Would benefit from strict offloading measures and skilled wound care. Blood cultures negative to date, place PICC line to enable the above antibiotic course Will follow September 21, 2024 Patient is currently on treatment with cefazolin 2 g IV every 8 hours for osteomyelitis related to MSSA. discontinue vancomycin. Patient was planned to undergo 6 weeks of IV antibiotics with cefazolin for treatment of bilateral osteomyelitis, was planned to transition to [facility], however has now refused to go to [place] citing the distance between her home to [place]. She is worried that her family members are not going to be able to visit her. She is extremely tearful related to this. She keeps insisting that she needs AKA's and wants AKA to control her infection. Extensively discussed the nature of osteomyelitis with her. Unfortunately patient has suffered from wound dehiscence over her stumps related to her chronically dragging/attempting to walk on her stumps. She has again developed right knee swelling as a result of chronic bursitis which keeps getting irritated due to the mechanics of her dragging her stumps on the floor. She has been counseled multiple times on this admission not to crawl on the floor, however has been noted on several occasions to be doing that in spite of multiple nursing and physician attempts to get her off the floor and into bed. I am highly concerned that if patient is unable to comply with the strict instructions while being in a monitored setting, being at home is going to lead to an even further decline in her behaviors and inability to care for her strengths appropriately. Discussed with her that AKA is not the answer at this time. She is currently not septic. There is no acute indication for AKA at this time. Even if she was to get an above-knee amputation, if she continues to drag across the floor, her AKA stumps are just as likely to breakdown and she will be in no better position than today. Her wounds remain at poor risk of healing and she has suffered some new abrasions over the right knee related to chronically dragging across the floor. She is very tearful today, states that she understands that by doing so she is making her wounds worse, however is crying that that she is frustrated and quite tired after years of being an amputee. States that she wants quality of life and wants to be home with her grandbabies and wants to go home. Will obtain a psychiatry assessment today. I am concerned that patient's frustration and depression with her current situation is adding to her not being able to make an appropriate decision for her care. Should she choose to go home and continue to walk/drag on her stumps, she will again suffer from osteomyelitis. I have offered alternatives to facility placement which include once daily ceftriaxone at our infusion center, however she states that she has no transport and does not want to come in every day for the antibiotics. I have offered IV antibiotics at home, however she states that she is blind and will not be able to manage IV antibiotics. States that her is unable to help her either. It is unlikely that she will get home health therefore would have to drive him at least once a week for PICC line care and wound care. She states that she will be unable to drive in for the above care. If she continues to refuse placement at group home facility, then the only remaining feasible plan may be to complete a course of partial IV antibiotics in the hospital for 10 days and then transition to oral antibiotics for continued treatment of osteomyelitis, with the understanding that this approach may be suboptimal overall. Overall,her biggest risk factor remains remaining weight bearing on her stumps in spite of seeming to understand that this is likely the cause of her wound dehiscence and recurrent osteomyelitis. Repeat CRP today. Attestations 2 Medical Necessity Statement*: psychiatry assessment, disposition planning Coding Level of Care Code Acute Code for Chg Fwd High MDM includes number and complexity of problems actively addressed during encounter, amount and/or complexity of data reviewed/ordered and described risk of complication, morbidity or mortality of management as documented Diagnoses Osteomyelitis of right lower extremity M86.9 Osteomyelitis of left lower extremity M86.9 Wound dehiscence T81.30XA Cellulitis L03.90 Bursitis due to bacterial infection M71.10; B96.89
--- NOTE | 2024-09-21 18:00 | P.NPUHP_ITS ---
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 Abscess Culture - Final 09/14/24 15:07 Gram Stain - Final Knee - #1 Anaerobic Culture - Preliminary Abscess Culture - Final Staphylococcus aureus Microbiology 09/14/24 15:12 Bone Gram Stain - Final 09/14/24 15:12 Bone Anaerobic Culture - Preliminary 09/14/24 15:12 Bone Tissue Culture - Final 09/14/24 15:06 Knee - #1 Gram Stain - Final 09/14/24 15:06 Knee - #1 Anaerobic Culture - Preliminary 09/14/24 15:06 Knee - #1 Abscess Culture - Final 09/14/24 15:07 Knee - #1 Gram Stain - Final 09/14/24 15:07 Knee - #1 Anaerobic Culture - Preliminary 09/14/24 15:07 Knee - #1 Abscess Culture - Final Staphylococcus aureus A&P Assessment and plan (1) Anemia of chronic disease: (2) Suicide ideation: (3) Acute flank pain: (4) Depression: Qualifiers: Depression Type: unspecified Qualified Code(s): F32.9 - Major depressive disorder, single episode, unspecified (5) Below-knee amputation of left lower extremity: (6) ALEJANDRO (generalized anxiety disorder): (7) Diabetic ophthalmopathy: (8) Diabetic gastroparesis: (9) Insomnia: Qualifiers: Insomnia type: due to medical condition Qualified Code(s): G47.01 - Insomnia due to medical condition (10) Diabetes mellitus type 1: Qualifiers: Diabetes mellitus complication status: with hyperglycemia Qualified Code(s): E10.65 - Type 1 diabetes mellitus with hyperglycemia (11) GERD (gastroesophageal reflux disease): Qualifiers: Esophagitis presence: without esophagitis Qualified Code(s): K21.9 - Gastro-esophageal reflux disease without esophagitis (12) Amputation of toe of right foot: (13) Suicidal ideation: (14) Combative behavior: (15) Suicide attempt: (16) History of financial difficulties: (17) Infection of amputation stump: (18) Pain of amputation stump of left lower extremity: (19) Low back pain: Qualifiers: Back pain laterality: unspecified Chronicity: unspecified Sciatica presence: unspecified whether sciatica present Qualified Code(s): M54.50 - Low back pain, unspecified Plan This is a 44-year-old female with significant past psychiatric and addiction issues with frequent suicidal ideation secondary to her medical comorbidities presents with infections that need appropriate treatment and she is resisting doing what would be best practice a capacity consult was requested. The patient is experiencing significant psychological distress related to their current medical condition and treatment decisions. There is an expressed acceptance of potential mortality and a preference for quality of life over quantity, indicating a possible depressive state or existential crisis. The patient demonstrates a lack of adherence to medical advice, which may be influenced by underlying psychological factors, including a possible diminished capacity to make informed decisions regarding their health. Plan: 1.? Continue current medication.? 2.? Would not allow her to discharge until we have had a final conversation possibly with ethics. Including placing on a 96-hour hold 3.? Would recommend that this decision and some possible consequences are discussed with and/or family. 4.? Patient seems to be struggling between the intersection of Having Capacity and Lacking it. She has significant factors that do not impact the outcomes that seem to be the top of her list and some of her decision making. There is some concern that her depression or despair could be compromising her vision of what is best in the situation. We will revisit this tomorrow and see if she has considered some the things that were discussed and see if we can either work with her family or make sure we have an ethics committee meeting to make sure that we are all on the same page from the standpoint how to make a final decision moving forward. 5.? Consider one-to-one if patient continues to walk on her stumps. 6. Will continue to follow. PDMP PDMP Reviewed: Not Reviewed Involuntary Hold Information 2 96 Hour Hold: 96 Hour Involuntary Admission: No Attestations NPU 2 Medical Necessity Statement*: N/A. Please see primary team note for medical necessity. Coding Level of Care Code Acute Code for Chg Fwd Diagnoses Anemia of chronic disease D63.8 Suicide ideation R45.851 Acute flank pain R10.9 Depression, unspecified depression type F32.9 Depression Type: unspecified Below-knee amputation of left lower extremity S88.112A ALEJANDRO (generalized anxiety disorder) F41.1 Diabetic ophthalmopathy E11.39 Diabetic gastroparesis E11.43; K31.84 Insomnia due to medical condition G47.01 Insomnia type: due to medical condition Type 1 diabetes mellitus with hyperglycemia E10.65 Diabetes mellitus complication status: with hyperglycemia Gastroesophageal reflux disease without esophagitis K21.9 Esophagitis presence: without esophagitis Amputation of toe of right foot S98.131A Combative behavior R46.89 Suicide attempt T14.91XA History of financial difficulties Z87.898 Infection of amputation stump T87.40 Pain of amputation stump of left lower extremity T87.89; M79.605 Low back pain M54.50 Back pain laterality: unspecified Chronicity: unspecified Sciatica presence: unspecified whether sciatica present
[2024-09-21] MEDS: ropinirole 1 mg Tablet PO (19:27)
[2024-09-21] MEDS: amlodipine 5 mg Tablet PO (19:28)
[2024-09-21] MEDS: quetiapine 100 mg Tablet PO (19:28)
[2024-09-21] MEDS: ondansetron 2 mg/ML SDV 2 mL 4 MG IVP (19:28)
[2024-09-21 20:21] LABS: Glucose Point of Care 189 mg/dL (70-110)
[2024-09-22] VITALS (11 sets, daily range): BP systolic 142–164; BP diastolic 80–95; PULSE 71–102; RESP 16–18; TEMP 36.5–37; O2SAT 92–100
[2024-09-22] MEDS: ceFAZolin 2,000 mg SDV 2000 MG IVP ×3 (00:34→18:23)
[2024-09-22] MEDS: oxyCODONE 5 mg IR Tab/Cap 10 MG PO ×3 (01:45→18:23)
[2024-09-22] MEDS: metoclopramide 10 mg Tablet PO (02:07)
--- OUTSIDE RECORDS SUMMARY | 2024-09-22 05:33 | XMS_ITS | Encounter Summary ---
Author Organization [facility] Address [address] [place] [address] Care Team Providers Care Angle Dozer Operator Name Role Phone Monika Simpson MD Primary Care Provider [phone] Encounter Details Date Type Department Care Team (Late Contact Info) Description 09/08/2024 External Device Data [place] ABSTRACTION Provider, Abstract NO ADDRESS ON FILE Social History Tobacco Use Types Packs/Day Years Used Date Smoking Tobacco: Former Cigarettes Q uit: 08/19/2012 Smokeless Tobacco: Never Alcohol Use Standard Drinks/Week Comments No 0 (1 standard drink = 0.6 oz pur e alcohol) Feeling Safe Answer Date Recorded Are you in a relationship wi th someone who hurts you emotionally and/or physically? 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 Gender Identity Not on file Sexual Orientation Not on file documented as of this encounter Plan of Treatment Upcoming Encounters Date Type Department Care Team (Late st Contact Info) Description 11/16/2024 8:40 AM CDT Office Visit [facility] [address] [phone] Monika Simpson MD [address] [phone] documented as of this encounter Visit Diagnoses Not on filedocumented in this encounter Additional Health Concerns Assessment Noted Time PHQ-9 Depression Total Score: 2 03/12/20 24 8:33 AM CDT documented as of this encounter Care Teams Angle Dozer Operator Relationship Specialty Start Date End Date Monika Simpson MD [address] [place] [phone] PCP - General Family Practice 03/12/24 documented as of this encounter
--- OUTSIDE RECORDS SUMMARY | 2024-09-22 05:33 | XMS_ITS | Encounter Summary ---
Author Organization [facility] Address [address] [place] [address] Care Team Providers Care Special Weapons And Tactics Officer Name Role Phone Monika Simpson MD Primary Care Provider [phone] Reason for Visit * Reason Onset Date Comments schedule 09/10/2024 Encounter Details Date Type Department Care Team (Late st Contact Info) Description 09/10/2024 Telephone [facility] [address] [phone] Monika Simpson MD [address] [phone] schedule Social History Tobacco Use Types Packs/Day Years [...] on file Legal Sex Female 2:06 AM TRAFFIC SIGN ERECTION SUPERVISOR Gender Identity Not on file Sexual Orientation Not on file documented as of this encounter Miscellaneous Notes * Telephone Encounter - Earline Velazquez - 09/15/2024 3:12 PM CST 09/15/2024 3:12 PM Spoke with patient. Appointment successfully scheduled/rescheduled. Questions answered to their satisfaction. Earline FIC SIGN ERECTION SUPERVISOR * Telephone Encounter - Earline Velazquez - 09/10/2024 11:46 AM CST No answer. Left voice mail to return our call. If patient calls back, contact center please schedule patient for Office Visit Established or Yearly Medicare Exam for CCC with PCP in or close to August - September 2024 FIC SIGN ERECTION SUPERVISOR documented in this encounter Plan of Treatment Upcoming Encounters Date Type Department Care Team (Late st Contact Info) Description 11/16/2024 8:40 AM CDT Office Visit [facility] [address] [phone] Monika Simpson MD [address] [place] [phone] documented as of this encounter Visit Diagnoses Not on filedocumented in this encounter Additional Health Concerns Assessment Noted Time PHQ-9 Depression Total Score: 2 03/12/20 24 8:33 AM CDT documented as of this encounter Care Teams Special Weapons And Tactics Officer Relationship Specialty Start Date End Date Monika Simpson MD [address] [place] [phone] PCP - General Family Practice 03/12/24 documented as of this encounter
--- OUTSIDE RECORDS SUMMARY | 2024-09-22 05:33 | XMS_ITS | Referral Summary ---
Author Organization [facility] Address [address] [place] [address] Phone Care Team Providers Care Certified Medical Records Coder Name Role Phone Manjarrez Imelda Trinh DELINQUENT TAX COLLECTOR ASSISTANT Primary Care Provider [phone] Allergies Active Allergy Reactions Criticality Noted Date Comments Sulfamethoxazole-Trimethoprim Hives 2023 Morphine Shortness of breath High 11/08/2023 Medications aspirin 81 mg chewable tablet Chew 81 mg 1 (one) time each day. 9 Active atorvastatin (Lipitor) 80 mg tablet Give at Bedtime 9 Active DULoxetine (Cymbalta) [address] capsule Take 120 mg by mouth 1 (one) time each day. Active lisinopriL (Prinivil, Zestril) 20 mg tablet 1 (one) time each day. Active metoprolol tartrate (Lopressor) 25 mg tablet Take 25 mg by mouth 2 (two) times a day. Active ondansetron ODT (Zofran-ODT) 4 mg disintegrating tablet DISSOLVE 1 TABLET IN MOUTH EVERY 4 HOURS NEEDED FOR NAUSEA AND VOMITING Active QUEtiapine (SEROquel) 100 mg tablet Take 100 mg by mouth 2 (two) times a day. 4 Active risperiDONE (Risperdal M-Tabs) 0.5 mg disintegrating tablet Take 0.5 mg by mouth in the morning and 0.5 mg at noon and 0.5 mg in the evening. Take with meals. 3 Active rOPINIRole (Requip) 1 mg tablet Take 1 mg by mouth. 2 Active diazePAM (Valium) 10 mg tablet Take one tablet, one hour prior to MRI. 1 tablet 1 4 Active celecoxib (CeleBREX) 200 mg capsule Take 1 capsule (200 mg total) by mouth 1 (one) time each day. 30 capsule 4 Active Active Problems Problem Noted Date Diagnosed Date Spinal osteoarthritis 12/10/2023 Social History Tobacco Use Types Packs/Day Years Used Date Smoking Tobacco: Former Cigarettes Smokeless Tobacco: Never Tobacco Cessation:Counseling Given: Not Answered Alcohol Use Standard Drinks/Week Comments Never 0 (1 standard drink = 0.6 oz pur e alcohol) AUDIT-C Answer Date Recorded Q1: How often do you have a drink containing alcohol? Never 11/08/2023 Q2: How many drinks containi ng alcohol do you have on a typical day when you are drinking? Patient does not drink Q3: How often do you have si x or more drinks on one occasion? Never 11/08/2023 PHQ-2 Answer Date Recorded Patient Health Questionnaire-2 Score 2 11/08/[address] [facility] - Mental Health Answer Date Recorde d Little interest or pleasure in doing things Nazia ral days 11/08/2023 Feeling down, depressed, or hopeless Several day s 11/08/2023 Feeling of Stress Not on file 11/08/2023 Comments No Sex and Gender Information Value Date Recorded Sex Assigned at Not on file Legal Sex Female 11:03 AM CDT Gender Identity Not on file Sexual Orientation Not on file Last Filed Vital Signs Vital Sign Reading Time Taken Comments Blood Pressure 136/93 01/20/2024 10:47 AM CDT Pulse 90 01/20/2024 10:47 AM CDT Temperature 36.2 ??C (97.1 ??F) 01/20/2024 9 :00 AM CDT Respiratory Rate 16 01/20/2024 10:4 7 AM CDT Oxygen Saturation 100% 01/20/2024 10: 47 AM CDT Inhaled Oxygen Concentration - - Weight 77.1 kg (170 lb) 01/20/2024 9:00 AM CDT Height 175.3 cm (5' 9 ) 11/08/2023 9:49 AM CDT double amputation-bt legs Body Mass Index 25.1 11/08/2023 9:49 AM CDT Plan of Treatment Not on file Insurance [facility] Care Teams Certified Medical Records Coder Relationship Specialty Start Date End Date Imelda Manjarrez FNP [id number] [facility] [place] [address] PCP - General Family Medicine 11/08/23
--- OUTSIDE RECORDS SUMMARY | 2024-09-22 05:33 | XMS_ITS | Clinical Summary ---
Author Organization [facility] Address [address] [place] [address] Care Team Providers Care Weather Algorithm Scientist Name Role Phone Monika Simpson MD Primary Care Provider [phone] Allergies Active Allergy Reactions Criticality Noted Date Comments Dhe Palpitations Low 09/22/2018 Latex Rash Low 01/16/2019 Skin reaction Morphine Shortness of Breath/Wheezing High 07/30/2017 Pt states, it makes me stop breathing Sulfamethoxazole-Tri methoprim Hives High 11/08/2023 Medications walker with wheels Face to Face completed within 6 months: yesLength of Need: 99 months 1 Each 0 07/31/20 19 Active insulin aspart (NovoLOG) 100 unit/mL injection Inject by subcutaneous injection. 4 units and then sliding scale Active polyethylene glycol (MIRALAX) 17 gram Powder in Packet Take 1 Packet (17 Grams) by mouth 2 times daily as needed for Constipation. 02/04/20 24 Active sodium bicarbonate 650 mg tablet Take 1 Tablet (650 mg) by mouth 2 times daily. 30 Tablet 02/11/20 24 Active naloxone (NARCAN) 4 mg/spray [place], Non-Aerosol EMERGENCY USE ONLY: Administer 1 spray (4 mg) in one nostril one time. May repeat in alternating nostrils every 2-3 min until responsive or EMS arrives. 2 Each 3 02/11/20 24 Active pregabalin (LYRICA) 25 mg CapsuleIndications :Diabetic polyneuropathy associated with type 2 diabetes mellitus (CMS/HCC) Take 1 Capsule (25 mg) by mouth every 12 hours. 60 Capsule 5 03/12/20 24 Active ondansetron (ZOFRAN ODT) 4 mg Tablet, Rapid Dissolve Take 1 Tablet (4 mg) by mouth every 8 hours as needed for Nausea/Emesis. Dissolve tablet on top of tongue, then swallow with saliva. 20 Tablet 04/26/20 24 Active rOPINIRole (REQUIP) 1 mg tabletIndications: Restless leg syndrome Take 1 Tablet (1 mg) by mouth daily at bedtime. 90 Tablet 3 05/07/20 24 Active metoclopramide HCl (REGLAN) 10 mg tabletIndications: Diabetic gastroparesis (CMS/HCC) Take 1 Tablet (10 mg) by mouth 4 times daily before meals and at bedtime. 120 Tablet 11 05/07/20 24 Active PARoxetine HCl (PAXIL) 10 mg tabletIndications: ALEJANDRO (generalized anxiety disorder) Take 1 Tablet (10 mg) by mouth daily. 90 Tablet 3 05/08/20 Active Additional Information Patient taking differently:10 mg Oral DAILY,Pt is taking 20 mg., Reported on 05/15/2024 amoxicillin-clavul anate (AUGMENTIN) 875-125 mg tablet Take 1 Tablet by mouth 2 times daily. 05/19/20 Active linezolid (ZYVOX) 600 mg tablet Take 1 Tablet by mouth 2 times daily. 05/19/20 Active pantoprazole (PROTONIX) 40 mg Tablet, Delayed Release (E.C.) Take 40 mg by mouth daily. 06/03/20 Active oxyCODONE-acetamin ophen (PERCOCET) 7.5-325 mg TabletIndications: Chronic bilateral low back pain without sciatica Take 1 Tablet by mouth every 6 hours as needed for Pain, Moderate. Max Daily Amount: 4 Tablets 120 Tablet 06/05/20 Active OxyCONTIN 10 mg Controlled Release 12 hour crush resistant tabletIndications: Chronic bilateral low back pain without sciatica Take 1 Tablet (10 mg) by mouth every 12 hours. Max Daily Amount: 20 mg 60 Tablet 06/09/20 Active cyclobenzaprine (FLEXERIL) 5 mg TabletIndications: Chronic bilateral low back pain without sciatica Take 1 Tablet (5 mg) by mouth 3 times daily as needed for Spasm. 60 Tablet 08/09/20 Active DULoxetine (CYMBALTA) 20 mg Capsule, Delayed Release(E.C.) Take 1 Capsule (20 mg) by mouth 2 times daily. 60 Capsule 08/09/20 Active hydrOXYzine pamoate (VISTARIL) 50 mg capsule Take 1 Capsule (50 mg) by mouth every 6 hours as needed for Anxiety. 30 Capsule 1 08/09/20 24 Active QUEtiapine (SEROquel) 100 mg tablet Take 1 Tablet (100 mg) by mouth daily at bedtime. 30 Tablet 1 08/09/20 24 Active amLODIPine (NORVASC) 5 mg tabletIndications: Essential hypertension Take 1 Tablet (5 mg) by mouth daily. 90 Tablet 08/09/20 Active Active Problems Problem Noted Date Diagnosed Date Chronic bilateral low back pain without sciatica 05/15/2024 Other insomnia 05/07/2024 Cannabis use disorder 05/01/2024 Slow transit constipation 05/01/2024 Chronic kidney disease 05/01/2024 ALEJANDRO (generalized anxiety disorder) 03/12/2024 Bipolar disorder, current episode mixed, mild Chronic bilateral thoracic back pain 03/12/2024 Renal lesion 02/08/2024 Cannabis hyperemesis syndrom e concurrent with and due to cannabis abuse 02/06/2024 Benign hypertension with stage 3b chronic kidney disease 02/05/2024 S/P bilateral BKA (below knee amputation) 2023 Peripheral neuropathy 02/01/2024 Intractable nausea and vomiting 01/31/2024 Spinal osteoarthritis 12/10/2023 Precordial chest pain 11/16/2019 Old DE (myocardial infarction) 11/11/2019 Takotsubo cardiomyopathy 11/11/2019 Hyponatremia 07/20/2019 Hypercalcemia 07/09/2019 Restless leg syndrome 05/02/2019 Normocytic anemia 05/02/2019 Hypomagnesemia 03/24/2019 Sacral decubitus ulcer 03/04/2019 Weight loss 03/04/2019 Dyslipidemia 03/03/2019 ASHD (arteriosclerotic heart disease) 01/19/2019 Esophagitis, [place] grade C 10/03/2018 Hx of migraine headaches 09/27/2018 Essential hypertension 09/27/2018 Incidental pulmonary nodule, > 3mm and < 8mm rt lung 09/20/2018 Thrombocytosis 09/19/2018 Elevated alkaline phosphatase level 09/19/2018 Noncompliance with medication regimen 07/04/2018 Diabetic polyneuropathy asso ciated with type 2 diabetes mellitus 12/30/2017 H/O supraventricular tachycardia 12/18/2017 Overview (12/15/2020): [place] to be caffeine induced Hypokalemia Diabetic gastroparesis Intractable chronic migraine without aura and without status migrainosus Intractable cyclical vomiting with nausea Chronic abdominal pain Microcytic anemia Uncomplicated opioid dependence Current mild episode of tony r depressive disorder without prior episode Resolved Problems Problem Noted Date Diagnosed Date Resolved Date UTI (urinary tract infection) 02/05/2024 03/12/2024 Diabetes mellitus 02/01/2024 03/12/2024 Mood disorder 02/01/2024 03/12/2024 Acute renal failure 01/31/2024 03/12/20 Acute cystitis without hematuria 11/26/2019 03/12/2024 Protein-calorie malnutrition, moderate 11/16/2019 03/12/2024 Acute coronary syndrome with high troponin 11/11/2019 03/12/2024 Overview (12/16/2020): Added automatically from request for surgery [id number] History of below-knee amputa tion of left lower extremity 11/11/2019 03/12/2024 Abnormal grief reaction 07/19/201902/17 Cellulitis of left foot 07/12/201902/17 Acute opioid withdrawal 07/10/201902/17 Amputation of right great toe 07/05/2019 03/12/2024 Bacteremia 07/02/2019 03/12/2024 Acute hematogenous osteomyel itis of right foot 07/02/2019 03/12/2024 FIONA (acute kidney injury) 06/17/2019 Abscess of skin and subcutaneous tissue 04/11/2019 05/04/2019 Osteomyelitis 04/11/2019 03/12/2024 Cellulitis 04/09/2019 05/04/2019 Diabetic ulcer of left great toe 03/24/2019 03/12/2024 Severe protein-calorie malnutrition 03/05/2019 03/12/2024 Elevated troponin 01/19/2019 03/12/2024 Acute diarrhea 12/09/2018 03/12/2024 Intractable vomiting 12/09/2018 024 Unspecified protein-calorie malnutrition 12/01/2018 03/12/2024 High anion gap metabolic acidosis 11/29/2018 03/12/2024 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 03/12/2024 Moderate protein-calorie malnutrition 09/30/2018 03/12/2024 Overview (12/15/2020): ASPEN Malnutrition Assessment and Findings Subcutaneous Fat Loss Assessment: Moderate fat loss (11/11/19 1430) Muscle Wasting Assessment: Severe (11/11/19 1430) Edema: Normal contour with a barely perceptible pit (no findings) (11/11/19 1430) Hand Electrical Equipment Tester: Unable to assess(s/p cath ) (11/11/19 1430) Percentage of Energy: Other (see comments)(varriable per pt - hx gastroparesis) (11/11/19 143) Percentage of Weight Loss: >7.5% in 3 months (severe)(estimate 15 lb actual loss, and 15 lb d/t BKA) (11/11/19 143) Malnutrition Decision Dietitian Assessment: Moderate protein-calorie (11/11/19 1430) Acute renal failure with tubular necrosis 09/27/2018 10/07/2018 Moderate protein-calorie malnutrition 09/21/2018 09/23/2018 Diabetes mellitus with hyperglycemia 09/19/2018 03/12/2024 Osteomyelitis of left foot 07/04/2018 0 03/12/2024 Diabetic ulcer of right midf oot associated with type 2 diabetes mellitus, with fat layer exposed 07/04/2018 03/12/2024 Wound dehiscence, surgical 01/10/2018 0 03/12/2024 Cellulitis of great toe of left foot 12/20/2017 12/30/2017 Diabetic ulcer of toe associ ated with type 2 diabetes mellitus, with fat layer exposed 12/20/2017 12/30/2017 Acute hematogenous osteomyelitis of left foot 12/21/19 18 03/12/2024 Other chest pain 12/18/2017 03/12/2024 Hypertensive urgency, malignant 12/18/2017 03/12/2024 Type 2 diabetes mellitus with hyperglycemia 12/18/2017 03/12/2024 Epigastric pain 09/23/2018 Dehydration 10/06/2018 Intractable vomiting with nausea 03/12/2024 Chest wall pain 03/12/2024 PEG (percutaneous endoscopic gastrostomy) adjustment/replacement/removal 07/25/202 4 Occult GI bleeding 4 Encounters Date Type Department Care Team Description 09/10/[address] [address] Monika Simpson MD schedule 09/08/2024 External Device Data STL ABSTRACTION Provider, Abstract 08/14/2024 Telephone [facility] [address] [place] [address] Boby Juarez Outreach 08/13/2024 Telephone [facility] [address] [facility] [place] [address] Boby Juarez Outreach 08/10/2024 [facility] [address] [facility] [place] [address] Boby Juarez Outreach 08/09/2024 10:49 AM PERSONAL TRAINER - 08/09/2024 3:37 PM [facility] Emergency [facility] Emergency Department [address] [place] [address] Uncomplicated opioid dependence (CMS/HCC) (Primary Dx); Cannabis hyperemesis syndrome concurrent with and due to cannabis abuse (CMS/HCC); Moderate opioid use disorder (CMS/HCC); Situational depression; Anxiety state; HTN (hypertension), benign; Restless legs; Chronic pain syndrome; Chronic bilateral low back pain without sciatica; Essential hypertension Discharge Disposition: Home or Self Care 08/06/2024 [facility] [address] [place] [address] Boby Juarez Outreach 08/04/2024 External Device Data STL ABSTRACTION Provider, Abstract 08/04/2024 Telephone [facility] [address] [place] [address] Boby Juarez Outreach 08/03/2024 Telephone [facility] [address] [place] [address] Boby Juarez Outreach 07/31/2024 1:11 AM PERSONAL TRAINER - 07/31/2024 2:45 PM PERSONAL TRAINER Emergency [facility] Emergency Department [address] [place] [address] Elisa Vinson MD Boss, José Cummings, DO Suicidal ideation (Primary Dx); Flank pain; Chronic pain syndrome; Uncomplicated opioid dependence (CMS/HCC) Discharge Disposition: Home or Self Care 07/30/2024 Travel 07/07/2024 External Device Data STL ABSTRACTION Provider, Abstract from Last 3 Months Immunizations Immunization Administration Dates Next Due (ADACEL/BOOSTRIX)(10 YR UP) TDAP VACCINE, 0.5ML, IM 10/21/2021 (PNEUMOVAX 23)(50 YRS UP) PN EUMOCOCCAL POLYSACCHARIDE (PPV23) 0.5 ML, IM 07/02/2019 INFLUENZA VACCINE QUADRIVALENT 6 MOS UP PF IM ,07/02/2019 Family History Medical History Relation Name Comments Other Brother No Known Problems Daughter 1 No Known Problems Daughter 2 No Known Problems Daughter 3 Diabetes Father Diabetes Mother Relation Name Status Comments Brother Alive cyst on brain Daughter 1 Alive Daughter 2 Alive Daughter 3 Alive Father Mother Alive Social History Tobacco Use Types Packs/Day Years Used Date Smoking Tobacco: Former Cigarettes Q uit: 08/19/2012 Smokeless Tobacco: Never Tobacco Cessation:Counseling Given: No Alcohol Use Standard Drinks/Week Comments No 0 [...] on file Legal Sex Female 2:06 AM PERSONAL TRAINER Gender Identity Not on file Sexual Orientation Not on file Last Filed Vital Signs Vital Sign Reading Time Taken Comments Blood Pressure 118/76 08/09/2024 2:00 PM PERSONAL TRAINER Pulse 76 07/31/2024 2:00 PM PERSONAL TRAINER Temperature 36.9 ??C (98.5 ??F) 08/09/2024 10:[address] Respiratory Rate 18 08/09/2024 2:00 PM PERSONAL TRAINER Oxygen Saturation 98% 08/09/2024 2:00 PM PERSONAL TRAINER Inhaled Oxygen Concentration - - Weight 63.5 kg (140 lb) 08/09/2024 10:46 AM PERSONAL TRAINER Height 147.3 cm (4' 10 ) 07/30/2024 9:52 PM PERSONAL TRAINER Body Mass Index 29.26 07/30/2024 9:52 PM PERSONAL TRAINER Plan of Treatment Upcoming Encounters Date Type Department Care Team (Late st Contact Info) Description 11/16/2024 8:40 AM CDT Office Visit [facility] [address] [address] Monika Simpson MD [address] [address] Health Maintenance Due Date Last Done Comments DIABETES ANNUAL RETINAL EXAM 1996 HEPATITIS B VACCINES (1 of 3 - 19+ 3-dose series) 1997 Preventative Visit-Managed Medicaid 1997 CERVICAL CANCER SCREENING 2008 BREAST CANCER SCREENING 2018 LDL CHOLESTEROL ANNUAL 11/10/2020 11/11/2019, 2017 FIT-DNA Q 3 years 2023 FIT/FOBT Q 1 year 2023 Flex Sig/CT Colonography Q 5 years 2023 INFLUENZA VACCINE (#1) 2024 07/03/2021, 2018 COVID-19 Vaccine ( season) 2024 09/19/2021 DIABETES HBA1C Q 6 MONTHS 10/29/20242023, 12/18/2021, 11/11/2019, Additional history exists DIABETES MICROALBUMIN ANNUAL SCREEN 03/12/2025 03/12/2024 DIABETES: A1C (Auto Order) 05/01/202505/01, 12/18/2021, 11/11/2019, Additional history exists COLORECTAL SCREENING 06/26/2029 06/26/2019, 06/26/2019, 06/26/2019 Colorectal Cancer Screening 06/26/2029 DTAP/TDAP/TD VACCINES (2 - Td or Tdap) 10/22/2031 10/21/2021 HPV VACCINES Aged Out No longer eligi ble based on patient's age to complete this topic Medical Devices Implanted Type Area Shot Core Drill Operator Device Identifier Shelf Expiration Date Model / Serial / Lot Powerline-02/16 Implanted:Qty : 1 on 03/06/2019 by Ovi Cohen MD Catheter Right: Chest [id number] 03/18/2021 [id number] / / [id number] 30cm Gj Feeding Tube- 9 Implanted:Qty : 1 on 10/15/2018 by Ovi Cohen MD Feeding Device Jejunum 03/19/2020 0250-18-3 0 / / [id number] Hemostatic Surgicel 3x4in 1944 - [id number] Implanted: by Pelon Rose DPM (Quantity not on file) Hemostatic Left: Foot [employer] 02/15/2023 1945 / / [id number] Explanted Type Area Shot Core Drill Operator Device Identifier Shelf Expiration Date Model / Serial / Lot 16fr 30cm Chela Gastro-Jejuna l Feeding Tube- 9 Implanted:Qty : 1 on 10/08/2018 by Luis Alberto Fields MD Explanted:Qty : 1 on 10/15/2018 by Ovi Cohen MD Feeding Device N/A: Abdomen 01/18/2020 0250-16-3 0 / / [id number] Procedures Procedure Name Priority Date/Time Associated Diagnosis Comments CBC WITH DIFFERENTIAL Stat 08/09/2024 1:23 PM PERSONAL TRAINER SALICYLATE LEVEL Stat 08/09/2024 11:3 4 AM PERSONAL TRAINER ACETAMINOPHEN LEVEL Stat 08/09/2024 1 1:34 AM PERSONAL TRAINER COMPREHENSIVE METABOLIC PANEL Stat 08/09/2024 11:[address] ABDOMEN PELVIS WO CONTRAST Stat 07/31/2024 3:46 AM PERSONAL TRAINER XR KNEE 1 OR 2 VW BILAT Stat 07/31/2024 2:20 AM PERSONAL TRAINER WOUND CULTURE WITH GRAM STAIN Stat 07/31/2024 1:40 AM PERSONAL TRAINER LIPASE Stat 07/30/2024 10:17 PM PERSONAL TRAINER HCG QUANTITATIVE, BLOOD Stat 07/30/2024 10:17 PM PERSONAL TRAINER COMPREHENSIVE METABOLIC PANEL Stat 07/30/2024 10:17 PM PERSONAL TRAINER CBC WITH DIFFERENTIAL Stat 07/30/2024 10:17 PM PERSONAL TRAINER HEMOGLOBIN A1C Stat 05/01/2024 3:13 PM CDT MICROALBUMIN/CREATINI NE RATIO, RANDOM UR Routine 03/12/2024 8:59 AM CDT Diabetic polyneuropathy associated with type 2 diabetes mellitus (CMS/HCC) LIPID PANEL Routine 11/11/2019 9:47 AM CDT COLONOSCOPY REPORT 06/26/2019 4: 22 PM PERSONAL TRAINER from Last 3 Months or Most Recently Relevant to Health Maintenance Results * (ABNORMAL) CBC WITH DIFFERENTIAL (08/09/2024 1:23 PM PERSONAL TRAINER) Only the most recent of2 resultswithin the time period is included. WBC 8.3 4.5 - 11.0 K/uL 08/09/2024 1:34 PM PERSONAL TRAINER [facility] RBC 3.46(L) 4.20 - 5.40 M/uL 08/09/2024 1:34 PM PERSONAL TRAINER [facility] HEMOGLOBIN 10.0(L) 12.0 - 16.0 g/dL 08/09/2024 1:34 PM PERSONAL TRAINER [facility] HEMATOCRIT 31.9(L) 36.0 - 46.0 % 08/09/2024 1:34 PM PERSONAL TRAINER [facility] MCV 92.2 84.0 - 103.0 fL 08/09/2024 1:34 PM [facility] MCH 28.9 27.0 - 34.0 pg 08/09/2024 1:34 PM [facility] MCHC 31.3 30.0 - 35.0 g/dL 08/09/2024 1:34 PM [facility] RDW 13.4 11.0 - 14.5 % 08/09/2024 1:34 PM [facility] RDW-STDEV 45.2 37.0 - 54.0 fL 08/09/2024 1:34 PM [facility] PLATELETS 385 140 - 440 K/uL 08/09/2024 1:34 PM [facility] MPV 8.5(L) 8.9 - 12.8 fL 08/09/2024 1:34 PM [facility] NEUTROPHILS 78(H) 42 - 75 % 08/09/2024 1:34 PM [facility] LYMPHOCYTES 16(L) 24 - 44 % 08/09/2024 1:34 PM [facility] MONOCYTES 5 2 - 10 % 08/09/2024 1:34 PM [facility] EOSINOPHILS 1 0 - 7 % 08/09/2024 1:34 PM [facility] BASOPHILS 1 0 - 1 % 08/09/2024 1:34 PM [facility] IMMATURE GRANULOCYTES 1 0 - 2 % 08/09/2024 1:34 PM [facility] NEUTROPHIL ABSOLUTE 6.47 2.00 - 8.00 K/uL 08/09/2024 1:34 PM [facility] LYMPHOCYTE ABSOLUTE 1.32 1.20 - 4.00 K/uL 08/09/2024 1:34 PM [facility] MONOCYTE ABSOLUTE 0.43 0.10 - 0.60 K/uL 08/09/2024 1:34 PM [facility] EOSINOPHIL ABSOLUTE 0.04 0.00 - 0.70 K/uL 08/09/2024 1:34 PM [facility] BASOPHILS ABSOLUTE 0.04 0.00 - 0.20 K/uL 08/09/2024 1:34 PM PERSONAL TRAINER [facility] IMMATURE GRANULOCYTES ABSOLUTE 0.04 0.00 - 0.10 K/uL 08/09/2024 1:34 PM PERSONAL TRAINER [facility] Blood Venipuncture / Unknown 08/09/2024 1:23 PM PERSONAL TRAINER 08/09/2024 1:30 PM PERSONAL TRAINER En BAKER HEMATOLOGY ORDERABLES Final Result Performing Organization Address [facility] Co de Phone Number [facility] CLIA # [id number] [address] [address] [place] [address] * (ABNORMAL) ACETAMINOPHEN LEVEL (08/09/2024 11:34 AM PERSONAL TRAINER) ACETAMINOPHEN LEVEL <5(L) 10 - 30 ug/mL 08/09/2024 12:22 PM PERSONAL TRAINER [facility] Blood Venipuncture / Unknown 08/09/2024 11:34 AM PERSONAL TRAINER 08/09/2024 11:38 AM PERSONAL TRAINER En BAKER CHEMISTRY ORDERABLES Final R esult Performing Organization Address [facility] Co de Phone Number [facility] CLIA # [id number] [address] [address] * (ABNORMAL) SALICYLATE LEVEL (08/09/2024 11:34 AM PERSONAL TRAINER) SALICYLATE LEVEL <0.3(L) 3.0 - 10.0 mg/dL 08/09/2024 12:22 PM PERSONAL TRAINER [facility] Blood Venipuncture / Unknown 08/09/2024 11:34 AM PERSONAL TRAINER 08/09/2024 11:38 AM PERSONAL TRAINER En BAKER CHEMISTRY ORDERABLES Final R esult Performing Organization Address [facility] Co de Phone Number [facility] CLIA # [id number] [address] [address] [place] [address] * (ABNORMAL) COMPREHENSIVE METABOLIC PANEL (08/09/2024 11:34 AM PERSONAL TRAINER) Only the most recent of2 resultswithin the time period is included. SODIUM 139 136 - 145 mmol/L 08/09/2024 12:11 PM [facility] POTASSIUM 3.5 3.5 - 5.1 mmol/L 08/09/2024 12:11 PM [facility] CHLORIDE 101 98 - 107 mmol/L 08/09/2024 12:11 PM [facility] CO2 18(L) 22 - 29 mmol/L 08/09/2024 12:11 PM [facility] CALCIUM 9.5 8.6 - 10.0 mg/dL 08/09/2024 12:11 PM [facility] BUN 30(H) 6 - 20 mg/dL 08/09/2024 12:11 PM [facility] CREATININE 2.08(H) 0.51 - 0.95 mg/dL 08/09/2024 12:11 PM [facility] GLUCOSE 71(L) 74 - 99 mg/dL 08/09/2024 12:11 PM [facility] TOTAL PROTEIN 8.0 6.4 - 8.3 g/dL 08/09/2024 12:11 PM [facility] ALBUMIN 4.0 3.5 - 5.2 g/dL 08/09/2024 12:11 PM [facility] BILIRUBIN TOTAL 0.2 0.2 - 1.0 mg/dL 08/09/2024 12:11 PM [facility] ALKALINE PHOSPHATASE 157(H) 35 - 104 U/L 08/09/2024 12:11 PM [facility] AST 21 10 - 35 U/L 08/09/2024 12:11 PM [facility] ALT 10 <=35 U/L 08/09/2024 12:11 PM PERSONAL TRAINER [facility] GFR 29(L) >=60 mL/min/1. 73 sq meter 08/09/2024 12:11 PM PERSONAL TRAINER [facility] Comment:eGFR calculated with 2020 CKD-EPI equation. Vegetarian diet, extremely high or low muscle mass, and may affect results. Cystatin C with Glomerular Filtration Rate is a suitable alternative for these patients. ANION GAP 20 9 - 20 mmol/L 08/09/2024 12:11 PM PERSONAL TRAINER [facility] Blood Venipuncture / Unknown 08/09/2024 11:34 AM PERSONAL TRAINER 08/09/2024 11:38 AM PERSONAL TRAINER us En BAKER CHEMISTRY ORDERABLES Final R esult [id number] [address] [place] [id number] * CT ABDOMEN PELVIS WO CONTRAST (07/31/2024 3:46 AM PERSONAL TRAINER) Anatomical Region Laterality Modality Abdomen Computed Tomogra phy 07/31/2024 3:32 AM PERSONAL TRAINER Impressions 07/31/2024 2:42 PM PERSONAL TRAINER IMPRESSION: Please see below. Exam: CT ABDOMEN PELVIS WO CONTRAST Date/Time of Exam: 07/31/2024 3:46 AM Reason For Exam: Flank pain, stone disease suspected. Diagnosis: See Reason for Exam. Technique: CT of the abdomen and pelvis was performed without the administration of intravenous contrast. Findings: No IV contrast was utilized. Comparison 05/14/2024. There is mild bilateral dependent atelectasis. Heart size is within normal limits. There are coronary artery calcifications. No significant abnormality of the liver, spleen, pancreas or bile ducts is noted. The gallbladder is surgically absent. No abnormality of the adrenal glands is noted. Embolization coils are again noted in the right renal hilum. Mild hyperdensity is again noted along the posterior aspect of the right kidney unchanged from the prior study. 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 The right kidney is otherwise unremarkable. No right renal or ureteral calculi are noted. There are phleboliths in the right hemipelvis. There is no right hydronephrosis or hydroureter. The left kidney is unremarkable in appearance. No left renal calculi are noted. There is no left hydronephrosis or hydroureter. No left ureteral calculi are noted. There are phleboliths in the left hemipelvis. There are no abnormally dilated loops of bowel. There is no evidence for appendicitis. No inflammatory change is noted. No free air or free fluid is noted. The urinary bladder is unremarkable. No significant abnormality of the gynecologic organs is appreciated. No pathologic adenopathy is noted. The abdominal aorta is not aneurysmal. No bony abnormality is appreciated. There is a mild chronic compression deformity of T12. IMPRESSION: 1. No acute radiographic abnormality noted. No findings of obstructive uropathy. 2. Stable chronic findings as noted above. Narrative Procedure Note Belen Machado MD - 07/31/2024 IMPRESSION: Please see below. Exam: CT ABDOMEN PELVIS WO CONTRAST Date/Time of Exam: 07/31/2024 3:46 AM Reason For Exam: Flank pain, stone disease suspected. Diagnosis: See Reason for Exam. Technique: CT of the abdomen and pelvis was performed without the administration of intravenous contrast. Findings: No IV contrast was utilized. Comparison 05/14/2024. There is mild bilateral dependent atelectasis. Heart size is within normal limits. There are coronary artery calcifications. No significant abnormality of the liver, spleen, pancreas or bile ducts is noted. The gallbladder is surgically absent. No abnormality of the adrenal glands is noted. Embolization coils are again noted in the right renal hilum. Mild hyperdensity is again noted along the posterior aspect of the right kidney unchanged from the prior study. 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 The right kidney is otherwise unremarkable. No right renal or ureteral calculi are noted. There are phleboliths in the right hemipelvis. There is no right hydronephrosis or hydroureter. The left kidney is unremarkable in appearance. No left renal calculi are noted. There is no left hydronephrosis or hydroureter. No left ureteral calculi are noted. There are phleboliths in the left hemipelvis. There are no abnormally dilated loops of bowel. There is no evidence for appendicitis. No inflammatory change is noted. No free air or free fluid is noted. The urinary bladder is unremarkable. No significant abnormality of the gynecologic organs is appreciated. No pathologic adenopathy is noted. The abdominal aorta is not aneurysmal. No bony abnormality is appreciated. There is a mild chronic compression deformity of T12. IMPRESSION: 1. No acute radiographic abnormality noted. No findings of obstructive uropathy. 2. Stable chronic findings as noted above. us Elisa Vinson MD CT ORDERABLES Final Result * XR KNEE 1 OR 2 VW BILAT (07/31/2024 2:20 AM PERSONAL TRAINER) Anatomical Region Laterality Modality Lower Extremity Computed Radiogr aphy 07/31/2024 2:20 AM PERSONAL TRAINER Impressions 08/02/2024 9:20 AM PERSONAL TRAINER IMPRESSION: Please see below. Exam: XR KNEE 1 OR 2 VW BILAT Date/Time of Exam: 07/31/2024 2:20 AM Reason For Exam: ??Pain. Diagnosis: See Reason for Exam. Comparison: None Findings: ?? Left knee: Below the knee amputation with minimal smooth peripheral hypertrophic bone at the residual proximal tibial segment. The residual proximal fibula is unremarkable. Significant prepatellar soft tissue swelling. Traction spur at the anterior superior patella. Mild medial and lateral joint space narrowing likely degenerative and minimal hypertrophy of the tibial spines. IMPRESSION: Significant prepatellar soft tissue swelling or effusion. An infected fluid collection is not excluded. No acute osseous abnormality. Postoperative changes. [id number] ? Narrative Procedure Note Jeffry Booker MD - 08/02/2024 IMPRESSION: Please see below. Exam: XR KNEE 1 OR 2 VW BILAT Date/Time of Exam: 07/31/2024 2:20 AM Reason For Exam: Pain. Diagnosis: See Reason for Exam. Comparison: None Findings: Left knee: Below the knee amputation with minimal smooth peripheral hypertrophic bone at the residual proximal tibial segment. The residual proximal fibula is unremarkable. Significant prepatellar soft tissue swelling. Traction spur at the anterior superior patella. Mild medial and lateral joint space narrowing likely degenerative and minimal hypertrophy of the tibial spines. IMPRESSION: Significant prepatellar soft tissue swelling or effusion. An infected fluid collection is not excluded. No acute osseous abnormality. Postoperative changes. [id number] Elisa Vinson MD DIAGNOSTIC IMAGING ORDERABLES Fi nal Result * (ABNORMAL) WOUND (AEROBIC) CULTURE WITH GRAM STAIN (07/31/2024 1:40 AM PERSONAL TRAINER) CULTURE 3 to 4+ or numerous Streptococcus agalactiae(A) CHELA MCG/ML 08/02/2024 8:49 AM PERSONAL TRAINER [facility] Comment: Other - Also called Group B Streptococcus Beta Streptococcus groups A, B, C, and G are predictably susceptible to ampicillin, penicillin, and cefazolin, but may be resistant to erythromycin and/or clindamycin. Susceptibility not routinely performed CULTURE STAPHYLOCOCCUS AUREUS(A) CHELA MCG/ML 08/02/2024 8:49 AM PERSONAL TRAINER [facility] GRAM STAIN 2+ (Few) Gram positive cocci 08/02/2024 8:49 AM PERSONAL TRAINER [facility] GRAM STAIN 2+ (Few) Polymorphonuclear WBC 08/02/2024 8:49 AM PERSONAL TRAINER [facility] Lesion/Drainage Fluid (Leg, left) Collection / Unknown 07/31/2024 1:40 AM PERSONAL TRAINER 07/31/2024 2:08 AM PERSONAL TRAINER Narrative Organism Antibiotic Method Susceptibility Staphylococcus aureus OXACILLIN (Nafcillin) CHELA MCG/ML 0.5 mcg/mL: Susceptible Comment:Oxacillin (N afcillin) susceptible Staphylococcus species are predictably susceptible to cefazolin, ceftriaxone, cephalexin, and amoxicillin-clavulanate Staphylococcus aureus VANCOMYCIN CHELA MCG/ML <=0.5 mcg/mL: Susceptible Staphylococcus aureus ERYTHROMYCIN CHELA MCG/ML <=0.25 mcg/mL: Susceptible Staphylococcus aureus CLINDAMYCIN CHELA MCG/ML 0.25 mcg/mL: Susceptible Staphylococcus aureus DOXYCYCLINE CHELA MCG/ML <=0.5 mcg/mL: Susceptible Staphylococcus aureus TRIMETHOPRIM/ SULFAMETHOXAZOLE CHELA MCG/ML <=10 mcg/mL: Susceptible us Elisa Vinson MD MICROBIOLOGY - GENERAL ORDERABLE S Final Result [facility] [employer] [facility] [employer] # [id number] [address] [facility] [place] [address] * HCG QUANTITATIVE, BLOOD (07/30/2024 10:17 PM PERSONAL TRAINER) [facility] HCG QUANT, BLOOD 0.8 0.0 - 1.0 mIU/mL 07/31/2024 3:00 AM PERSONAL TRAINER [facility] Comment: HCG Quantitative Reference Range Male ?<= 2 mIU/mL Female Non premenopausal ??<= 1 mIU/mL Non postmenopausal??<= 7 mIU/mL Gestational Age ? HCG Concentration ??3 ??Weeks ?5.8 - 71.2 ? mIU/mL ??4 ??Weeks ?9.5 - 750 ?mIU/mL ??5 ??Weeks ?332 - 8941 ? mIU/mL ??6 ??Weeks ?158 - 31,795 ?? mIU/mL ??7 ??Weeks ? 3697 - 163,563 ??mIU/mL ??8 ??Weeks ? 32,065 - 149,571 ??mIU/mL ??9 ??Weeks ? 63,803 - 151,410 ??mIU/mL ??10 Weeks ? 46,509 - 186,977 ??mIU/mL ??12 Weeks ? 27,832 - 210,612 ??mIU/mL ??14 Weeks ? 13,950 - 62,530 ?? mIU/mL ??15 Weeks ? 12,039 - 70,971 ?? mIU/mL ??16 Weeks ? 9040 - 56,451 ?? mIU/mL ??17 Weeks ? 8175 - 55,868 ?? mIU/mL ??18 Weeks ? 8099 - 58,176 ?? mIU/mL Blood Venipuncture / Unknown 07/30/2024 10:17 PM PERSONAL TRAINER 07/30/2024 10:22 PM PERSONAL TRAINER us Elisa Vinson MD CHEMISTRY ORDERABLES Final Resul t Performing Organization Address [facility] de Phone Number [facility] CLIA # [id number] [address] [place] [address] * LIPASE (07/30/2024 10:17 PM PERSONAL TRAINER) Pathologist [facility] LIPASE 44 13 - 60 U/L 07/31/2024 1:57 AM PERSONAL TRAINER [facility] Blood Venipuncture / Unknown 07/30/2024 10:17 PM PERSONAL TRAINER 07/30/2024 10:22 PM PERSONAL TRAINER us Elisa Vinson MD CHEMISTRY ORDERABLES Final Resul t Performing Organization Address [facility] de Phone Number [facility] CLIA # [id number] [address] [facility] [place] [address] * (ABNORMAL) HEMOGLOBIN A1C (05/01/2024 3:13 PM CDT) HEMOGLOBIN A1C 5.8(H) <=5.6 % 05/04/2024 8:42 AM CDT [facility] EST. AVG GLUCOSE, A1C 120 mg/dL 05/04/2024 8:42 AM CDT [facility] Blood Venipuncture / Unknown 05/01/2024 3:13 PM CDT 05/01/2024 3:17 PM CDT Narrative [facility] - 05/04/2024 8:42 AM CDT HGB A1C INTERPRETATION NORMAL: ? <5.7% PRE-DIABETES: 5.7 - 6.4% DIABETES: ? 6.5% OR GREATER us Erica Bunn MD CHEMISTRY ORDERABLES Kena l Result [facility] CLIA # [id number] [address] [address] * (ABNORMAL) MICROALBUMIN/CREATININE RATIO, RANDOM UR (03/12/2024 8:59 AM CDT) Creatinine, Urine 141 20 - 275 mg/dL [facility] MICROALBUMIN, URINE 175.0 See Note: mg/dL [facility] Comment: Reference Range: Reference Range Not established MICROALBUMIN/CREAT RATIO, UR 1241(H) <30 mg/g creat [facility] Comment: The ADA defines abnormalities in albumin excretion as follows: Albuminuria Category ?Result (mg/g creatinine) Normal to Mildly increased ?? <30 Moderately increased ? 30-299 Severely increased ? > OR = 300 The ADA recommends that at least two of three specimens collected within a 3-6 month period be abnormal before considering a patient to be within a diagnostic category. Test Performed at: [email or web address] [address] [place] ??[id number] Diego Lacy MD Urine URINE SPECIMEN OBTAINED BY CLEAN CATCH PROCEDURE / Unknown 03/12/2024 8:59 AM CDT 03/13/2024 2:39 AM CDT us Monika Simpson MD URINE ORDERABLES Final Res ult [facility] [phone] [facility] [address] [facility] [place] [address] * (ABNORMAL) LIPID PANEL (11/11/2019 9:47 AM CDT) CHOLESTEROL 133 <200 mg/dL 11/12/2019 12:47 AM CDT [facility] TRIGLYCERIDE 165(H) <150 mg/dL 11/12/2019 12:47 AM CDT [facility] HDL 45 40 - 59 mg/dL 11/12/2019 12:47 AM CDT [facility] LDL CALCULATED 55 <100 mg/dL 11/12/2019 12:47 AM CDT [facility] NON-HDL CHOLESTEROL 88 <130 mg/dL 11/12/2019 12:47 AM T [facility] Blood Venipuncture / Unknown 11/11/2019 9:47 AM CDT 11/11/2019 9:52 AM CDT Narrative [facility] [employer] [facility] - 11/12/2019 12:47 AM CDT Fasting TOTAL CHOLESTEROL ??mg/dL ??Desirable <200 ??Borderline high 200-239 ??High >=240 TRIGLYCERIDES ??mg/dL ??Normal <150 ??Borderline high 150-199 ??High 200-499 ??Very high >=500 HDL CHOLESTEROL ??mg/dL ??Low <40 ??Normal 40-59 ??Desirable >=60 NON HDL CHOLESTEROL mg/dL ??Optimal <130 ??Near Optimal 130-159 ??Borderline High 160-189 ??Very High >=190 CALCULATED LDL mg/dL ??LDL <70, OPTIMAL if have Atherosclerotic cardiovascular disease (ASCVD) ??or intermediate or higher (>7.5%) 10 year risk of ASCVD including most adults ??with diabetes. ??LDL <100, Optimal in adult patients with low (<7.5%) 10 year ASCVD risk ??LDL 100-160, Suboptimal ??LDL >160, High ??LDL >190, Very high ATPIII Guidelines Reference Ranges for Lipid Panels (NCEP/AMA) . Rubia Macias MD CHEMISTRY ORDERABLES Final R esult [facility] CLIA# [id number] [address] [place] [address] [facility] CLIA# [id number] [address] [place] [address] * COLONOSCOPY REPORT (06/26/2019 4:22 PM PERSONAL TRAINER) Adryan Ibarra MD GI PROCEDURE ORDERABL ES Final Result from Last 3 Months or Most Recently Relevant to Health Maintenance Insurance MEDICAID [place] * Guarantor: MELISSA TATE Account Type Relation to Patient Date of Phone Billing Address Personal/Family [address] [place] [address] RX INFOCROSSING Medicaid RX [employer] (INTERNAL) [facility] Internal Plans Advance Directives For more information, please contact: [phone] * Full Code (Latest Code Status on File) Date Activated Date Inactivated Comments 05/01/2024 6:48 PM 05/03/2024 2:01 PM * Full Code Date Activated Date Inactivated Comments 02/05/2024 11:29 PM 02/11/2024 7:10 PM * Full Code Date Activated Date Inactivated Comments 01/31/2024 10:37 PM 02/04/2024 1:05 PM Care Teams Weather Algorithm Scientist Relationship Specialty Start Date End Date Monika Simpson MD [address] [place] [id number] PCP - General Family Practice 03/12/24
--- OUTSIDE RECORDS SUMMARY | 2024-09-22 05:33 | XMS_ITS | Clinical Summary ---
Author Organization [facility] Address [address] [place] [address] Phone Care Team Providers Care Obiee Architect Name Role Phone Manjarrez Imelda Trinh REPRODUCTION ORDER PROCESSOR Primary Care Provider [phone] Allergies Active Allergy Reactions Criticality Noted Date [...] Noted Date Diagnosed Date Spinal osteoarthritis 12/10/2023 Family History Medical History Relation Comments Cancer Father Heart attack Father Relation Status Comments Father Mother Alive Social History Tobacco Use [...] Recorded Patient Health Questionnaire-2 Score 2 11/08/2023 [facility] - Mental Health Answer Date Recorde d [...] 11/08/2023 9:49 AM CDT Plan of Treatment Health Maintenance Due Date Last Done Comments CT Colonography 1978 Diabetes: Hemoglobin A1C 1978 FIT-DNA 1978 FIT 1978 FOBT 1978 Sigmoidoscopy 1978 MMR Vaccines (1 of 1 - Standard series) 1979 Diabetes: Dental Exam 1988 Diabetes: Foot Exam 1988 Diabetes: Retinopathy Screening 1988 Varicella Vaccines (1 of 2 - 13+ 2-dose series) 1991 Hepatitis B Vaccines (1 of 3 - 19+ 3-dose series) 1997 Pap Smear 1999 Cervical Cancer Screening 2008 HPV/Cotest 2008 Mammogram 2018 DTaP,Tdap,and Td Vaccines (2 - Td or Tdap) 11/18/2021 10/21/2021 COVID-19 Vaccine (1 - 2023-2 5 season) 2024 Influenza Vaccine (#1) 2024 1, 07/02/2019 Zoster Vaccines (1 of 2) 2028 Colonoscopy 06/26/2029 06/26/2019 Colorectal Cancer Screening 06/26/2029 Pneumococcal Vaccine: 65+ Years (2 of 2 - PCV) 2043 07/02/2019 RSV Vaccine 60+ or (1 - 1-dose 75+ series) 2053 Pneumococcal Vaccine: Pediatrics (0 to 5 Years) and At-Risk Patients (6 to 64 Years) Aged Out 07/02/2019 No longer eligible b ased on patient's age to complete this topic HIB Vaccines Aged Out No longer eligi ble based on patient's age to complete this topic HPV Vaccines Aged Out No longer eligi ble based on patient's age to complete this topic Hepatitis A Vaccines Aged Out No long er eligible based on patient's age to complete this topic IPV Vaccines Aged Out No longer eligi ble based on patient's age to complete this topic Meningococcal Vaccine Aged Out No saloni avi eligible based on patient's age to complete this topic RSV Vaccine <20 Months Aged Out No lo nger eligible based on patient's age to complete this topic Rotavirus Vaccines Aged Out No longer eligible based on patient's age to complete this topic Insurance [employer] Care Teams Obiee Architect Relationship Specialty Start Date End Date Imelda Manjarrez FNP [id number] [facility] [place] [address] PCP - General Family Medicine 11/08/23
[2024-09-22] MEDS: HYDROmorphone 1 mg/mL INJ 1 mL IVP ×3 (06:05→22:12)
[2024-09-22 06:29] LABS: Glucose Point of Care 103 mg/dL (70-110)
[2024-09-22] MEDS: sennosides 8.6 mg Tablet 17.2 MG PO (08:53)
[2024-09-22] MEDS: pantoprazole DR 40 mg Tablet PO (08:53)
[2024-09-22] MEDS: duloxetine 20 mg Capsule PO ×2 (08:53→18:23)
[2024-09-22] MEDS: amlodipine 5 mg Tablet PO (08:53)
[2024-09-22] MEDS: docusate sodium 100 mg Capsule 200 MG PO (08:54)
[2024-09-22] MEDS: cyclobenzaprine 10 mg Tablet PO ×3 (08:54→20:28)
[2024-09-22] MEDS: acetaminophen 325 mg Tablet 650 MG PO (08:58)
[2024-09-22 11:31] LABS: Glucose Point of Care 195 mg/dL (70-110)
--- NOTE | 2024-09-22 14:46 | P.PN_ITS ---
Subjective 2 Subjective: Examined. She reports that her pain is controlled. Vitals/I&O/Wt Last Vital Signs Temp 97.6 F 09/23/24 11:48 Pulse 95 09/23/24 11:48 Resp 18 09/23/24 11:48 BP 170/86 09/23/24 11:48 Pulse Ox 98 09/23/24 11:48 O2 Del Method Room Air 09/23/24 11:48 O2 Flow Rate 2 09/19/24 08:00 09/22/24 09/23/24 09/23/24 22:59 06:59 14:59 Intake Total 720 / 1880 Balance 720 / 1880 Weight last 48 hrs Weight 87 lb Weight 86 lb 14.4 oz Physical Exam 2 Narrative: Acute distress, awake alert and oriented x 3 Extremities: No erythema on either lower extremity. Drainage from both prepatellar bursa's is purulent but less so Data 09/23/24 06:30 09/23/24 06:30 Micro: Microbiology 09/14/24 15:07 Gram Stain - Final Knee - #1 Anaerobic Culture - Final Abscess Culture - Final Staphylococcus aureus 09/14/24 15:12 Gram Stain - Final Bone Anaerobic Culture - Final Tissue Culture - Final 09/14/24 15:06 Gram Stain - Final Knee - #1 Anaerobic Culture - Final Abscess Culture - Final A&P Assessment and plan (1) Infection of amputation stump, left lower extremity: (2) Abscess of left lower extremity: (3) Abscess of right lower extremity: (4) Osteomyelitis: Plan status post: Incision and drainage of left lower extremity abscess Incision and drainage of right lower extremity abscess Sharp excisional debridement of left lower extremity wound Left distal tibial bone biopsy Daily dressing changes Antibiotics per primary I am available for above-knee amputation(S), if necessary, but patient would benefit by keeping her knees if possible through long-term antibiotics Medical management per primary PDMP PDMP Reviewed: Not Reviewed Attestations 2 Medical Necessity Statement*: Per primary Coding Level of Care Code Acute Code for Chg Fwd Diagnoses Infection of amputation stump, left lower extremity T87.44 Abscess of left lower extremity L02.416 Abscess of right lower extremity L02.415 Osteomyelitis M86.9
[2024-09-22 16:44] LABS: Glucose Point of Care 144 mg/dL (70-110)
--- NOTE | 2024-09-22 17:06 | P.PN_ITS ---
Subjective 2 Subjective: She is in much better spirits today. It appears talking to Dr. Martinez from psychiatry appears to have really helped her. Medications: Reviewed: Yes Vitals/I&O/Wt Last Vital Signs Temp 98.3 F 09/22/24 15:37 Pulse 102 H 09/22/24 15:37 Resp 18 09/22/24 15:37 BP 152/90 09/22/24 15:37 Pulse Ox 93 09/22/24 15:37 O2 Del Method Room Air 09/22/24 15:37 O2 Flow Rate 2 09/19/24 08:00 09/22/24 09/22/24 09/22/24 06:59 14:59 22:59 Intake Total 240 / 821 1160 / 1160 Output Total 200 / 400 Balance 40 / 421 1160 / 1160 Weight last 48 hrs Weight 39.417 kg Weight 38.725 kg Physical Exam 2 Narrative: General: No acute distress, AO x3, she is blind HEENT: PERRLA, pupils bilaterally equal and reactive, pallors not present Chest: Normal vesicular breath sounds, no added sounds, equal good air entry bilaterally CVS: S1-S2 regular, no murmurs, no tachycardia, no gallops, no rubs Abdomen: Soft, nontender, no organomegaly, bowel sounds present Neuro: No focal deficits, no facial deformity, AO x3, power 5/5 in all limbs 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 Data 09/21/24 04:42 09/21/24 04:42 Micro: Microbiology 09/14/24 15:07 Gram Stain - Final Knee - #1 Anaerobic Culture - Final Abscess Culture - Final Staphylococcus aureus 09/14/24 15:12 Gram Stain - Final Bone Anaerobic Culture - Final Tissue Culture - Final 09/14/24 15:06 Gram Stain - Final Knee - #1 Anaerobic Culture - Final Abscess Culture - Final A&P Assessment and plan (1) Osteomyelitis of right lower extremity: Cellulitis with suspected osteomyelitis distal tibia stump. No drainable stump collections.Suspected infectious prepatellar bursitis with diffuse peripheral thick-walled enhancement.Dense vascular calcification. (2) Osteomyelitis of left lower extremity: Extensive destructive osteomyelitis involving the residual distal tibial shaft extending at least one third into the residual shaft. Additional osteomyelitis distal residual fibula. Dehiscence with cellulitis involving the soft tissue stump. Suspected prepatellar infectious bursitis with thick walled peripheral enhancement and diffuse surrounding enhancement and edema (3) Wound dehiscence: (4) Cellulitis: (5) Bursitis due to bacterial infection: Plan 44-year-old lady with multiple comorbidities as listed above presenting to the hospital with bilateral infectious prepatellar bursitis and bilateral osteomyelitis. associated left BKA wound dehiscence which has not healed since at least April 2024. Blood cultures negative thus far from September 12, 2023 Status post I&D by general surgery bilaterally, bone biopsy and culture taken on September 14, 2024 So far wound culture and Gram stain taken in the emergency room from the left BKA stump are with growth of MSSA. OR cultures from September 14 including left tibia culture, left knee prepatellar bursa cultures, right knee abscess cultures are currently pending, thus far no growth. Bone biopsy and cx from right side N/A. She is currently on treatment empirically with piperacillin and vancomycin which can continue for now. Once cultures are finalized, we will be able to design an antibiotic regimen for outpatient use. Patient is at high risk of antibiotic failure and progression to a higher level of amputation due to her noncompliance. If she continues to have the same lifestyle with weightbearing or dragging on her stumps, it is highly unlikely that her wounds will ever heal. Should she recover from this current episode she is likely to suffer from a recurrent cycle of wound dehiscence and osteomyelitis if nothing changes with her lifestyle. She understands but states that she takes care of young grandchildren who push her wheelchair around and therefore she feels safer being on the floor. noted vascular calcifications on imaging ? PAD Would recommend discharge to care home facility with wound care management capabilities when she is ready. will follow with results of cx September 17, 2024 OR cultures from September 14 with coag positive Staphylococcus, likely to be Staph aureus. Given that superficial cultures from the ER were with MSSA, anticipate OR cultures to be similar. Discontinue piperacillin/tazobactam. Continue vancomycin for now. Anticipate discharge with 6 weeks of IV cefazolin 2 g every 8 hours. In the unlikely event that the coag positive staph from September 14 ends up being MRSA, discharge antibiotic plan would be vancomycin IV every 24 hours Recommend antibiotic treatment for at least 6 weeks until October 29, 2024. While on antibiotics to obtain weekly CBC, creatinine, LFT, CRP and fax to ID clinic for review. Patient anticipated to be discharged to [facility], this would be appropriate as she has very little support at home to be able to administer antibiotics. Would benefit from strict offloading measures and skilled wound care. Blood cultures negative to date, place PICC line to enable the above antibiotic course Will follow September 21, 2024 Patient is currently on treatment with cefazolin 2 g IV every 8 hours for osteomyelitis related to MSSA. discontinue vancomycin. Patient was planned to undergo 6 weeks of IV antibiotics with cefazolin for treatment of bilateral osteomyelitis, was planned to transition to [facility], however has now refused to go to [place] citing the distance between her home to [place]. She is worried that her family members are not going to be able to visit her. She is extremely tearful related to this. She keeps insisting that she needs AKA's and wants AKA to control her infection. Extensively discussed the nature of osteomyelitis with her. Unfortunately patient has suffered from wound dehiscence over her stumps related to her chronically dragging/attempting to walk on her stumps. She has again developed right knee swelling as a result of chronic bursitis which keeps getting irritated due to the mechanics of her dragging her stumps on the floor. She has been counseled multiple times on this admission not to crawl on the floor, however has been noted on several occasions to be doing that in spite of multiple nursing and physician attempts to get her off the floor and into bed. I am highly concerned that if patient is unable to comply with the strict instructions while being in a monitored setting, being at home is going to lead to an even further decline in her behaviors and inability to care for her strengths appropriately. Discussed with her that AKA is not the answer at this time. She is currently not septic. There is no acute indication for AKA at this time. Even if she was to get an above-knee amputation, if she continues to drag across the floor, her AKA stumps are just as likely to breakdown and she will be in no better position than today. Her wounds remain at poor risk of healing and she has suffered some new abrasions over the right knee related to chronically dragging across the floor. She is very tearful today, states that she understands that by doing so she is making her wounds worse, however is crying that that she is frustrated and quite tired after years of being an amputee. States that she wants quality of life and wants to be home with her grandbabies and wants to go home. Will obtain a psychiatry assessment today. I am concerned that patient's frustration and depression with her current situation is adding to her not being able to make an appropriate decision for her care. Should she choose to go home and continue to walk/drag on her stumps, she will again suffer from osteomyelitis. I have offered alternatives to facility placement which include once daily ceftriaxone at our infusion center, however she states that she has no transport and does not want to come in every day for the antibiotics. I have offered IV antibiotics at home, however she states that she is blind and will not be able to manage IV antibiotics. States that her is unable to help her either. It is unlikely that she will get home health therefore would have to drive him at least once a week for PICC line care and wound care. She states that she will be unable to drive in for the above care. If she continues to refuse placement at care home facility, then the only remaining feasible plan may be to complete a course of partial IV antibiotics in the hospital for 10 days and then transition to oral antibiotics for continued treatment of osteomyelitis, with the understanding that this approach may be suboptimal overall. Overall,her biggest risk factor remains remaining weight bearing on her stumps in spite of seeming to understand that this is likely the cause of her wound dehiscence and recurrent osteomyelitis. Repeat CRP today. September 21, 2024 Continue treatment with cefazolin 2 g IV every 8 hours. Patient was evaluated by psychiatry service yesterday. Patient is under much better mood today . more hopeful. States that she has been talking extensively with her and overall is agreeable that going home and trying to manage IV antibiotics at home may be a difficult task for her. reviewed case management notes. No is able to accept patient. [facility] is not in network with her insurance. She is willing to go to care home facility so she can get her IV antibiotics and appropriate wound care. She is more compliant today and is using wheelchair. She has not been on the floor today. CRP is trending down. PDMP PDMP Reviewed: Not Reviewed Attestations 2 Medical Necessity Statement*: needs disposition planning Coding Level of Care Code Acute Code for Chg Fwd High MDM includes number and complexity of problems actively addressed during encounter, amount and/or complexity of data reviewed/ordered and described risk of complication, morbidity or mortality of management as documented Diagnoses Osteomyelitis of right lower extremity M86.9 Osteomyelitis of left lower extremity M86.9 Wound dehiscence T81.30XA Cellulitis L03.90 Bursitis due to bacterial infection M71.10; B96.89
--- NOTE | 2024-09-22 20:15 | W.PM.NPUPNS ---
Subjective NPU Subjective: Patient presented today reporting that things were going well. She identified that she was doing fine and had reconsidered. She reported a plan to follow through with the treatment team's recommendations. Her was at the bedside and was also supportive of this plan. She endorsed that there was not a bed available in [place] as selective right now but that they were reapplying for a spot and she was moving forward with the IV antibiotics as indicated. She denied any side effects to her medications. Mental Status Exam MSE Comments: This is an overweight white female in hospital scrubs with limited grooming and eye contact.? With notable below-knee amputation bilaterally. No abnormal movements.? Cooperative with exam in no acute distress.? Speech was slightly decreased rate and volume.? Mood described as better and they are going to try to get me back on the list for [place] plan to go there, affect seems congruent and appropriate.? Thought process linear.? Thought content: Patient denied current suicidal or homicidal ideation, there were no delusions reported or noted, she denied auditory or visual hallucinations.? She reported things being better today after she had a chance to think about them and talk with her .. Attention and concentration were limited and memory appeared more reliable but none were formally tested.? She is alert and oriented x3.? Insight, judgment and impulse control are all limited versus impaired. Vitals/I&O/Wt Last Vital Signs Temp 98.2 F 09/22/24 19:36 Pulse 97 09/22/24 19:36 Resp 18 09/22/24 19:36 BP 164/87 09/22/24 19:36 Pulse Ox 100 09/22/24 19:36 O2 Del Method Room Air 09/22/24 19:36 O2 Flow Rate 2 09/19/24 08:00 09/22/24 09/22/24 09/22/24 06:59 14:59 22:59 Intake Total 240 / 821 1160 / 1160 720 / 1880 Output Total 200 / 400 Balance 40 / 421 1160 / 1160 720 / 1880 Weight last 48 hrs Weight 39.417 kg Weight 38.725 kg Data NPU 09/21/24 04:42 09/21/24 04:42 Micro: Microbiology 09/14/24 15:07 Gram Stain - Final Knee - #1 Anaerobic Culture - Final Abscess Culture - Final Staphylococcus aureus 09/14/24 15:12 Gram Stain - Final Bone Anaerobic Culture - Final Tissue Culture - Final 09/14/24 15:06 Gram Stain - Final Knee - #1 Anaerobic Culture - Final Abscess Culture - Final Microbiology 09/14/24 15:07 Knee - #1 Gram Stain - Final 09/14/24 15:07 Knee - #1 Anaerobic Culture - Final 09/14/24 15:07 Knee - #1 Abscess Culture - Final Staphylococcus aureus 09/14/24 15:12 Bone Gram Stain - Final 09/14/24 15:12 Bone Anaerobic Culture - Final 09/14/24 15:12 Bone Tissue Culture - Final 09/14/24 15:06 Knee - #1 Gram Stain - Final 09/14/24 15:06 Knee - #1 Anaerobic Culture - Final 09/14/24 15:06 Knee - #1 Abscess Culture - Final A&P Assessment and plan (1) Anemia of chronic disease: (2) Suicide ideation: (3) Acute flank pain: (4) Depression: Qualifiers: Depression Type: unspecified Qualified Code(s): F32.9 - Major depressive disorder, single episode, unspecified (5) Below-knee amputation of left lower extremity: (6) ALEJANDRO (generalized anxiety disorder): (7) Diabetic ophthalmopathy: (8) Diabetic gastroparesis: (9) Insomnia: Qualifiers: Insomnia type: due to medical condition Qualified Code(s): G47.01 - Insomnia due to medical condition (10) Diabetes mellitus type 1: Qualifiers: Diabetes mellitus complication status: with hyperglycemia Qualified Code(s): E10.65 - Type 1 diabetes mellitus with hyperglycemia (11) GERD (gastroesophageal reflux disease): Qualifiers: Esophagitis presence: without esophagitis Qualified Code(s): K21.9 - Gastro-esophageal reflux disease without esophagitis (12) Amputation of toe of right foot: (13) Suicidal ideation: (14) Combative behavior: (15) Suicide attempt: (16) History of financial difficulties: (17) Infection of amputation stump: (18) Pain of amputation stump of left lower extremity: (19) Low back pain: Qualifiers: Back pain laterality: unspecified Chronicity: unspecified Sciatica presence: unspecified whether sciatica present Qualified Code(s): M54.50 - Low back pain, unspecified Plan This is a 44-year-old female with significant past psychiatric and addiction issues with frequent suicidal ideation secondary to her medical comorbidities presents with infections that need appropriate treatment and she is resisting doing what would be best practice a capacity consult was requested. The patient is experiencing significant psychological distress related to their current medical condition and treatment decisions. There is an expressed acceptance of potential mortality and a preference for quality of life over quantity, indicating a possible depressive state or existential crisis. The patient demonstrates a lack of adherence to medical advice, which may be influenced by underlying psychological factors, including a possible diminished capacity to make informed decisions regarding their health. Plan: 1.? Continue current medication.? 2.? Would not allow her to discharge until we have had a final conversation possibly with ethics. Including placing on a 96-hour hold 3.? Would recommend that this decision and some possible consequences are discussed with and/or family. Spoke to her with present and she endorsed that she was following through with the gold standard of care introduced by primary team. 4.? Patient seems to be struggling between the intersection of having capacity and lacking it. She has significant factors that do not impact the outcomes that seem to be the top of her list and some of her decision making. There is some concern that her depression or despair could be compromising her vision of what is best in the situation. Today she seemed full throated about her plan to go to [place] and follow through with the plan as outlined by her treatment team. was there to encourage with the plan. We likely still need to have an ethics committee meeting to make sure that we are all on the same page regarding her management now and in the future if she were to return. 5.? Consider one-to-one if patient continues to walk on her stumps. 6. Will continue to follow. PDMP PDMP Reviewed: Not Reviewed Involuntary Hold Information 96 Hour Hold: 96 Hour Involuntary Admission: No Attestations NPU Medical Necessity Statement*: N/A. Please see primary team note for medical necessity. Coding Level of Care Code Acute Code for [facility] Fwd Diagnoses Anemia of chronic disease D63.8 Suicide ideation R45.851 Acute flank pain R10.9 Depression, unspecified depression type F32.9 Depression Type: unspecified Below-knee amputation of left lower extremity S88.112A ALEJANDRO (generalized anxiety disorder) F41.1 Diabetic ophthalmopathy E11.39 Diabetic gastroparesis E11.43; K31.84 Insomnia due to medical condition G47.01 Insomnia type: due to medical condition Type 1 diabetes mellitus with hyperglycemia E10.65 Diabetes mellitus complication status: with hyperglycemia Gastroesophageal reflux disease without esophagitis K21.9 Esophagitis presence: without esophagitis Amputation of toe of right foot S98.131A Combative behavior R46.89 Suicide attempt T14.91XA History of financial difficulties Z87.898 Infection of amputation stump T87.40 Pain of amputation stump of left lower extremity T87.89; M79.605 Low back pain M54.50 Back pain laterality: unspecified Chronicity: unspecified Sciatica presence: unspecified whether sciatica present
[2024-09-22] MEDS: quetiapine 100 mg Tablet PO (20:28)
[2024-09-22] MEDS: ropinirole 1 mg Tablet PO (20:28)
[2024-09-22 20:45] LABS: Glucose Point of Care 228 mg/dL (70-110)
[2024-09-23] VITALS (7 sets, daily range): BP systolic 139–170; BP diastolic 85–93; PULSE 91–99; RESP 16–18; TEMP 36.4–36.7; O2SAT 98–100; BMI 26.5
[2024-09-23] MEDS: oxyCODONE 5 mg IR Tab/Cap 10 MG PO ×3 (00:43→17:21)
[2024-09-23] MEDS: ceFAZolin 2,000 mg SDV 2000 MG IVP ×4 (00:43→17:21)
[2024-09-23] MEDS: hyDROXYzine 25 mg Capsule 50 MG PO (04:19)
[2024-09-23] MEDS: ondansetron 2 mg/ML SDV 2 mL 4 MG IVP ×2 (04:19→12:57)
[2024-09-23] MEDS: HYDROmorphone 1 mg/mL INJ 1 mL IVP ×2 (05:46→12:58)
[2024-09-23 06:32] LABS: Glucose Point of Care 134 mg/dL (70-110)
[2024-09-23 06:52] LABS: Basophils % 0.7 %; Eosinophils # 0.2 10^3/uL (0.0-0.8); Eosinophils % 2.7 %; Hematocrit 23.9 % (36-47); Lymphocytes # 1.1 10^3/uL (0.8-4.8); Mean Corpuscular HGB Conc 31.8 g/dL (30-55); Mean Corpuscular Hemoglobin 29.1 pg (27-33); Mean Corpuscular Volume 91.6 fl (85-98); Mean Platelet Volume 8.5 fL (7.4-10.4); Monocytes # 0.3 10^3/uL (0.2-0.9); Monocytes % 6.2 %; Neutrophils # 3.83 10^3/uL (1.8-7.7); Neutrophils % 69.9 %; Nucleated Red Blood Cells % 0 %; Platelet Count 428 10^3/cmm (157-399); Red Blood Count 2.61 10^6/uL (3.85-5.65); Red Cell Distribution Width 14.6 % (12.1-15.1); White Blood Count 5.49 10^3/uL (3.29-11.43)
[2024-09-23 06:54] LABS: Alanine Aminotransferase < 5 U/L (0-33); Albumin Level 3.2 g/dL (3.5-5.2); Alkaline Phosphatase 177 U/L (35-105); Anion Gap 13.8 (5-19); Aspartate Amino Transferase 10 U/L (0-32); Blood Urea Nitrogen 19 mg/dL (6-20); Calcium 8.7 mg/dL (8.5-10.5); Carbon Dioxide 25 mmol/L (22-29); Chloride 102 mmol/L (98-107); Creatinine Clr Calc Pharmacy 27.3387; Ferritin 692 ng/mL (15-150); Globulin 3.6 g/dL (1.3-4.6); Glomerular Filtration Rate 34.7 mL/min (90-130); Glucose 124 mg/dL (65-115); Osmolality Calculated 288 mOsm/kg (285-295); Potassium 3.8 mmol/L (3.5-5.1); Sodium 137 mmol/L (136-145); Total Bilirubin 0.2 mg/dL (0.15-1.2); Total Protein 6.8 g/dL (6.6-8.7)
[2024-09-23 07:03] LABS: Iron 47 ug/dL (37-145); Percent Saturation 21.3 % (20-50); Total Iron Binding Capacity 220 mcg/dl; Unsaturated Iron Binding 173 ug/dL (112-347)
[2024-09-23] MEDS: cyclobenzaprine 10 mg Tablet PO ×2 (08:15→14:52)
[2024-09-23] MEDS: amlodipine 5 mg Tablet 10 MG PO (08:15)
[2024-09-23] MEDS: pantoprazole DR 40 mg Tablet PO (08:16)
[2024-09-23] MEDS: docusate sodium 100 mg Capsule 200 MG PO (08:16)
[2024-09-23] MEDS: duloxetine 20 mg Capsule PO ×2 (08:16→17:21)
[2024-09-23] MEDS: sennosides 8.6 mg Tablet 17.2 MG PO (08:20)
[2024-09-23] MEDS: calcium carbonate 500 mg Chew Tablet PO (10:33)
[2024-09-23 11:14] LABS: Glucose Point of Care 127 mg/dL (70-110)
[2024-09-23 17:02] LABS: Glucose Point of Care 215 mg/dL (70-110)
--- NOTE | 2024-09-23 17:50 | PC.NURSE ---
REMOVED PICC PER PROTOCOL. TOLERATED WELL.
--- NOTE | 2024-09-23 23:59 | PM.DCS ---
Discharge Providers Date of Admission: 09/13/24 01:38 Date of Discharge: September 23, 2024 Attending Provider at Admission: Christel Vickers MD Attending Provider at Discharge: Sonali Emery MD Primary Care Provider: Rupert Simpson MD Diagnoses at Discharge Discharge Diagnosis (1) Infection of amputation stump, left lower extremity: Status: Acute (2) Abscess of left lower extremity: Status: Acute (3) Abscess of right lower extremity: Status: Acute (4) Osteomyelitis: Status: Inactive Reason for Visit Reason for Visit: Pain from Pelvic area down Hospital Course Hospital Course Cherrie Solomon is a 44 year old female with a past medical history of CKD CAD history of gastroparesis, bilateral BKA, hypertension, history of C. difficile, history of PTSD, history of self harming behaviors, history of diabetes mellitus, blindness. In April 2024 she had suffered from left BKA cellulitis. Imaging of the leg had shown a complex fluid collection in the amputation stump. There was no sign of osteomyelitis at the time. She underwent I&D with orthopedics on May 17, 2024. Culture had shown MSSA. Patient was discharged on Augmentin and linezolid with recommendation to f/up with her orthopedic provider in [place]. She followed up with wound care on May 21, 2024 and was placed on a wound VAC thereafter for wound dehiscence. On her wound care visit in May 2024, she was noted to additionally have right prepatellar swelling over the right knee. It appears she continued to follow-up with wound care until June 2024 but then was referred to higher tertiary center. She has a history of dragging herself across the floor and does not consistently usually use a wheelchair. This has caused shearing and wound breakdown in the past. She followed up with orthopedics in June 2024 and was referred to see her original Orthopedician where the BKA's were performed(lyric and simona). She was recommended to try to get fitted for a new prosthesis for which she has been following at [facility] in [place]. She was recommended to stop walking on her knees but states this has been difficult as she takes care of young grandchildren at home. Left BKA stump site/site of wound dehiscence was cultured at wound care in June 2024 which showed MSSA again. It appears her wound VAC had been falling off because she continued to drag across the floor. Wound VAC therapy was stopped at this time. She was referred to tertiary orthopedic center to assess for stump revision. She was currently admitted here since September 12, 2024 after presenting with repeated drainage from her left leg. Additionally had increased swelling of her right knee. She was having fever of 99.9 Fahrenheit at home chills and a poor appetite. In the ED she received a non contrast left lower extremity CT which showed a 10 x 7 prepatellar/infrapatellar abscess and soft tissue ulceration with findings compatible with osteomyelitis of the distal tibial stump. Per review of ER notes, orthopedics cotton expert recommended transfer to higher center as has been recommended in the past however eventually patient was admitted here. She was seen by general surgery. On September 14, 2024 bilateral lower knee CTs were performed with contrast. Left leg showed extensive destructive osteomyelitis involving the residual distal tibial shaft extending at least one third into the residual shaft. Additional osteomyelitis involving the distal residual fibula. Prepatellar infectious bursitis with thick-walled peripheral enhancement and diffuse surrounding enhancement. Degenerative changes involving the left hip and sacroiliac joint. CT with contrast of the right femur showed cellulitis and osteomyelitis of the distal tibial stump. There is suspected infectious prepatellar bursitis with diffuse peripheral thick-walled enhancement. She underwent I&D right and left prepatellar abscess and excisional debridement of the left BKA stump with bone biopsy on September 14, 2024. Review of IntraOp note shows on the right lower extremity there was serosanguineous fluid encountered on puncturing the bursa. Bone biopsy of the distal left tibia was obtained. Specimen has been sent for cultureand returned with MSSA. On the left BKA stump, bursa was punctured and purulent fluid was expelled. Culture has remained negative. Patient had been started on Zosyn and vancomycin initially on 09/12, however subsequently with recovery of MSSA, coverage was narrowed down to cefazolin 2g iv every 8 hrs. fever resolved and she remained hemodynamically stable. CRP trended down during admission course. Patient's hospital course remained complicated by her continued attempts at dragging on the floor and being ambulatory on her stumps. Patient expressed frustration and despair at her current situation of being a B/L amputee, being in constant pain and with restrictions on her mobility. She had been planned to be discharged to LTAC with 6 weeks of iv abx for treatment of osteomyelitis and infectious bursitis , however then had reservations about being away from her family for an extended amount of time and stated she just wanted to return home. Due to concerns for her depression driving poor judgement and refusal to adhere to stump care instructions, psychiatry service was consulted. Following assessment by psychiatry, patient did demonstrate a better understanding of her complicated situation. She was more agreeable to adhering to recommended course, and demonstrated better behaviors, restricting herself to wheelchair for ambulation. She was agreeable to going to LTAC for abx and wound care with subsequent follow up with orthopedics. Unfortunately, the patient was declined for placement by the facility after an initial acceptance, reportedly due to concern for behavior issues per discussion with case management. She declined placement at any other facilities at a different location other than [place] due to distance from her home. Attempts were made to arrange iv antibiotics at home, however this was unable to be arranged due to lack of reliable teachable caregiver, patient being nearly blind and being unable to administer abx herself, inability to have an accepting [employer] company for PICC line care and weekly labs, inability to drive into infusion center due to lack of gas money, inability to reliably get a medicaid ride due to her blindness (patient reports being told she needs a lead laying and gluing machine operator to ride with her and she does not have a daily lead laying and gluing machine operator available). Please see case management notes for further details. We discussed with her that given this situation, we will transition her from iv to oral antibiotics which will be the safest option for her at home. There is data to support use of oral abx as being non inferior to iv abx for treatment for osteomyelitis and complicated orthopedic infections. (Oral versus Intravenous Antibiotics for Bone and Joint Infection; Published?September 17, 2018 N Engl J Med?2019;380:425-436; DOI: 10.1056/IXONsm8272017) . She has completed 10 days of iv abx between 09/12-09/24/24, now being transitioned to oral cephalexin 500mg BID for 6 weeks. She will follow up in the ID clinic on October. Referral provided to wound care clinic for stump care - patient states she will make arrangements for a weekly visit to [facility] Referral provided to [facility] in [place] for suboxone program. She has previously followed with pain management in [place], was to be fitted with a spinal stimulator but reports was eventually unable to get it as her trial device was ruined by water damage. Previously was opiate dependent but reports that she has not had any opiates since June 2024. She would like to re establish with pain management in [place] if unable to see [facility]. Referal provided to [facility] orthopedics for follow up for stump revision, f/up for infectious bursitis and osteomyelitis. Patient prefers to keep care consolidated within the [facility] system. Referral provided to [facility] in [place] per patient request for worsening vision. Patient reports only being able to perceive shadows at this present time. Amlodipine dose was increased to 10 mg daily at discharge due to uncontrolled BP Physical Exam Narrative: General: No acute distress, AO x3, sitting in wheelchair by bedside HEENT: PERRLA, pupils bilaterally equal and reactive, pallors not present Chest: Normal vesicular breath sounds, no added sounds, equal good air entry bilaterally CVS: S1-S2 regular, no murmurs, no tachycardia, no gallops, no rubs Abdomen: Soft, nontender, no organomegaly, bowel sounds present Neuro: No focal deficits except poor vision, no facial deformity, AO x3 ext; B/L BKA, stumps currently with dressing in place Discharge Data Studies Completed and Pending Completed Studies During Hospitalization Category Date Time Status CT femur LT w con [id number] Routine Cat Scan 09/14/24 08:[address] femur RT w con [id number] Routine Cat Scan 09/14/24 08:[address] lower leg LT wo con* [id number] Stat Cat Scan 09/12/24 22:16 Completed CXRP [XR chest 1V portable [id number]] Routine Exams 09/17/24 12:16 Completed XR chest 1V portable [id number] Routine Exams 09/17/24 00:00 Completed Pathology: Surgical [PTH] Routine Pth 09/14/24 15:23 Completed Radiology Impressions Lower Extremity CT 09/12/24 22:16 IMPRESSION: 1. Extensive soft tissue infection with suspected large prepatellar/infrapatellar abscess. 2. Soft tissue ulceration with findings compatible with osteomyelitis of the distal tibial stump. Femur CT 09/14/24 08:00 IMPRESSION: 1. Extensive destructive osteomyelitis involving the residual distal tibial shaft extending at least one third into the residual shaft. Additional osteomyelitis distal residual fibula. 2. Dehiscence with cellulitis involving the soft tissue stump. 3. Suspected prepatellar infectious bursitis described above. Chest X-Ray 09/17/24 12:16 IMPRESSION: 1. Right-sided PICC line ending at the cavoatrial junction in good position. No acute process identified. Laboratory Results WBC 5.49 10^3/uL (3.29-11.43) 09/23/24 06:30 RBC 2.61 10^6/uL (3.85-5.65) L 09/23/24 06:30 Hgb 7.60 g/dL (11.27-16.99) L 09/23/24 06:30 Hct 23.9 % (36-47) L 09/23/24 06:30 MCV 91.6 fl (85-98) 09/23/24 06:30 MCH 29.1 pg (27-33) 09/23/24 06:30 MCHC 31.8 g/dL (30-55) 09/23/24 06:30 RDW 14.6 % (12.1-15.1) 09/23/24 06:30 Plt Count 428 10^3/cmm (157-399) H 09/23/24 06:30 MPV 8.5 fL (7.4-10.4) 09/23/24 06:30 Neut % (Auto) 69.9 % 09/23/24 06:30 Lymph % (Auto) 20.0 % 09/23/24 06:30 [place] % (Auto) 6.2 % 09/23/24 06:30 Eos % (Auto) 2.7 % 09/23/24 06:30 Baso % (Auto) 0.7 % 09/23/24 06:30 Neut # (Auto) 3.83 10^3/uL (1.8-7.7) 09/23/24 06:30 Lymph # (Auto) 1.1 10^3/uL (0.8-4.8) 09/23/24 06:30 [place] # (Auto) 0.3 10^3/uL (0.2-0.9) 09/23/24 06:30 Eos # (Auto) 0.2 10^3/uL (0.0-0.8) 09/23/24 06:30 Baso # (Auto) 0.0 10^3/uL (0.0-0.1) 09/23/24 06:30 Nucleated RBC % (auto) 0 % 09/23/24 06:30 Nucleated RBCs # 0.0 /100WBC 09/23/24 06:30 PT 13.00 SECONDS (12.1-14.9) 09/13/24 05:08 INR 0.91 (0.8-1.2) 09/13/24 05:08 APTT 34.0 SECONDS (23.9-36.7) 09/13/24 05:08 Sodium 137 mmol/L (136-145) 09/23/24 06:30 Potassium 3.8 mmol/L (3.5-5.1) 09/23/24 06:30 Chloride 102 mmol/L (98-107) 09/23/24 06:30 Carbon Dioxide 25 mmol/L (22-29) 09/23/24 06:30 Anion Gap 13.8 (5-19) 09/23/24 06:30 BUN 19 mg/dL (6-20) 09/23/24 06:30 Creatinine 1.6 mg/dL (0.5-0.9) H 09/23/24 06:30 GFR Calculation 34.7 mL/min (90-130) L 09/23/24 06:30 Glucose 124 mg/dL (65-115) H 09/23/24 06:30 POC Glucose 215 mg/dL (70-110) H 09/23/24 16:42 Estimat Average Glucose 108 09/13/24 05:08 Hemoglobin A1c 5.4 % (4.0-6.0) 09/13/24 05:08 Calculated Osmolality 288 mOsm/kg (285-295) 09/23/24 06:30 Lactic Acid 1.0 mmol/L (0.5-2.2) 09/12/24 21:12 Calcium 8.7 mg/dL (8.5-10.5) 09/23/24 06:30 Phosphorus 3.5 mg/dL (2.5-4.5) 09/16/24 06:05 Magnesium 1.8 mg/dL (1.7-2.3) 09/20/24 03:26 Iron 47 ug/dL (37-145) 09/23/24 06:30 TIBC 220 mcg/dl 09/23/24 06:30 % Saturation 21.3 % (20-50) 09/23/24 06:30 Unsat Iron Binding 173 ug/dL (112-347) 09/23/24 06:30 Ferritin 692 ng/mL (15-150) H 09/23/24 06:30 Total Bilirubin 0.2 mg/dL (0.15-1.2) 09/23/24 06:30 GGT 194 U/L (5-36) H 09/13/24 05:08 AST 10 U/L (0-32) 09/23/24 06:30 ALT < 5 U/L (0-33) 09/23/24 06:30 Alkaline Phosphatase 177 U/L (35-105) H 09/23/24 06:30 C-Reactive Protein 23.7 mg/L (0.0-4.9) H 09/21/24 04:42 Total Protein 6.8 g/dL (6.6-8.7) 09/23/24 06:30 Albumin 3.2 g/dL (3.5-5.2) L 09/23/24 06:30 Globulin 3.6 g/dL (1.3-4.6) 09/23/24 06:30 Vancomycin Trough 13.5 ug/mL (10-15) 09/16/24 01:27 Blood Type A Positive 09/17/24 16:40 Rho(D) Type Rh positive 09/17/24 16:40 Antibody Screen Negative 09/17/24 16:40 Vitals Last Vital Signs Temp 97.7 F 09/23/24 18:49 Pulse 95 09/23/24 18:49 Resp 18 09/23/24 18:49 BP 168/93 09/23/24 18:49 Pulse Ox 99 09/23/24 18:49 O2 Del Method Room Air 09/23/24 16:07 O2 Flow Rate 2 09/19/24 08:00 Discharge Plan Discharge Patient Disposition: Home Condition: Stable Prescriptions: New cephalexin 500 mg capsule 500 mg PO BID 42 Days Qty: 84 0RF Continued pregabalin 50 mg capsule 50 mg PO BID metoclopramide HCl 10 mg tablet 10 mg PO QID PRN (Reason: Constipation) Qty: 1 0RF ropinirole 1 mg Tablet 1 mg PO BEDTIME 30 Days Qty: 30 1RF paroxetine HCl 20 mg Tablet 40 mg PO DAILY 30 Days Qty: 60 1RF pantoprazole 40 mg Tablet,Delayed Release (Dr/Ec) 40 mg PO DAILY 30 Days Qty: 30 1RF hydroxyzine pamoate 25 mg Capsule 50 mg PO Q6H PRN (Reason: Anxiety) 30 Days Qty: 120 1RF duloxetine 20 mg Capsule,Delayed Release(Dr/Ec) 20 mg PO BID 30 Days Qty: 60 1RF cyclobenzaprine 10 mg Tablet 10 mg PO TID Qty: 30 0RF quetiapine 100 mg tablet 100 mg PO BEDTIME naloxone [Narcan] 4 mg/actuation spray,non-aerosol See Rx Instructions .ROUTE .COMPLEX Rx Instructions: call 911. administer a single spray of narcan in one nostril. repeat every 2-3 minutes as needed if no or minimal response; Refer questions about refills only to the pharmacist who fulfilled this [place] standing order at [phone] Changed amlodipine 5 mg tablet 10 mg PO DAILY 30 Days Qty: 30 0RF Discharge Orders: Discharge Order (Routine); Ordered 09/23/24 Ordered By: Sonali Emery Other Ambulatory Orders: Miscellaneous Procedure (Order) Location: None Selected Ordered By: Sonali Emery Referrals: behavior health group [Other] (suboxone clinic) [facility] hospital [Other] () Infectious Disease Group [facility] [Provider Group] - 10/27/24 [facility] [Outside] - 7-10 days (BKA stump osteomyelitis and bursitis) Walter Somers MD [Referring] - 10/12/24 11:20 am (APPOINTMENT WITH RUPERT SIMPSON AT [facility]) WOUND CARE CLINIC, [Staff Physician] - 09/29/24 9:00 am ([phone]) Discharge Diet: Diabetic Discharge Activity: Resume usual activity Patient Instructions: Cephalexin (By mouth), Osteomyelitis (GEN), Acute Wound Care (DC), Opioid Safety, Post Anesthesia Care Discharge Attestations Time Spent in Discharge Care*: greater than 30 min Status at Discharge: Cognitive status at discharge: cognitively intact, Behavioral status at discharge: cooperative, Quality Metrics Clinical Quality Measures [ No reported AMI, CVA or VTE this stay] Coding Level of Care Code Acute Code for Chg Fwd Diagnoses Infection of amputation stump, left lower extremity T87.44 Abscess of left lower extremity L02.416 Abscess of right lower extremity L02.415 Osteomyelitis M86.9
== END 2024-09-23 18:54 | disposition home or self-care (01) | DRG 463 ==
LOC: ER 22:17 → MEDSURG 09-13 00:50
PROVIDERS: Internal Medicine; Surgery; Admitting Provider Internal Medicine; Emergency Provider Physician Assistant; PCP Family Medicine; Visit Provider Student in an Organized Health Care Education/Training Program
PROC: 0JBP0ZZ Excision of Left Lower Leg Subcutaneous Tissue and Fascia, Open Approach (ICD-10-PCS; principal; 2024-09-14 14:30)
DX: T87.44 Infection of amputation stump, left lower extremity (principal); A41.9 Sepsis, unspecified organism; E87.1 Hypo-osmolality and hyponatremia; L02.416 Cutaneous abscess of left lower limb; L02.415 Cutaneous abscess of right lower limb; M86.9 Osteomyelitis, unspecified; E87.20 Acidosis, unspecified; Y83.5 Amputation of limb(s) as the cause of abnormal reaction of the patient, or of later complication, without mention of misadventure at the time of the procedure; B95.61 Methicillin susceptible Staphylococcus aureus infection as the cause of diseases classified elsewhere; I12.9 Hypertensive chronic kidney disease with stage 1 through stage 4 chronic kidney disease, or unspecified chronic kidney disease; K31.84 Gastroparesis; N18.32 Chronic kidney disease, stage 3b; I25.10 Atherosclerotic heart disease of native coronary artery without angina pectoris; H54.7 Unspecified visual loss; M70.42 Prepatellar bursitis, left knee; F32.A Depression, unspecified; F41.1 Generalized anxiety disorder; G47.00 Insomnia, unspecified; R74.01 Elevation of levels of liver transaminase levels; K21.9 Gastro-esophageal reflux disease without esophagitis; D63.8 Anemia in other chronic diseases classified elsewhere; Z89.512 Acquired absence of left leg below knee; Z89.511 Acquired absence of right leg below knee; Z91.52 Personal history of nonsuicidal self-harm; Z86.14 Personal history of Methicillin resistant Staphylococcus aureus infection; Z95.5 Presence of coronary angioplasty implant and graft; Z87.891 Personal history of nicotine dependence; E11.319 Type 2 diabetes mellitus with unspecified diabetic retinopathy without macular edema; E11.40 Type 2 diabetes mellitus with diabetic neuropathy, unspecified; E11.69 Type 2 diabetes mellitus with other specified complication; E11.22 Type 2 diabetes mellitus with diabetic chronic kidney disease
CPT/HCPCS: 36415; 36416; 36573; 36592; 71045; 73700; 73701; 80048; 80053; 80202; 82728; 82962; 82977; 83036; 83540; 83550; 83605; 83735; 84100; 85025; 85610; 85730; 86140; 86850; 86900; 87040; 87070; 87075; 87077; 87176; 87186; 87205; 88307; 88311; 93005; 96365; 96367; 96372; 96375; 96376; 99285; J0330; J0360; J0690; J1171; J1200; J1650; J2060; J2371; J2405; J2543; J2704; J3010; J3370; J7030; J7050; J8597

== ENCOUNTER 2024-10-31 21:28 | Inpatient (IN) | payer MEDICAID, SELFPAY ==
[2024-10-31 21:33] VITALS: BP 174/93; PULSE 124; RESP 22; TEMP 37.2; O2SAT 98
--- NOTE | 2024-10-31 22:01 | W.ED.PSYCHS ---
HPI - Psych General: Chief Complaint: Psychiatric Symptoms Stated Complaint: self harm, severe abd Time Seen by Provider: 10/31/24 22:00 History of Present Illness: 44-year-old female and with confusion and combativeness reporting that she has been in pain now for 17 days and has not slept. She denies any drugs or alcohol. Patient denies any new or different medications. Patient is very hard to get any history from and is somewhat agitated and aggressive. She is reporting thoughts of self harm. Long standing psychiatric history. Related Data Home Medications ?Medication ?Instructions ?Recorded ?Confirmed pregabalin 50 mg capsule 50 mg PO BID 05/17/24 09/13/24 naloxone 4 mg/actuation nasal See Rx Instructions .Route .COMPLEX 09/13/24 09/13/24 spray (Narcan) quetiapine 100 mg tablet 100 mg PO BEDTIME 09/13/24 09/13/24 Previous Rx's ?Medication ?Instructions ?Recorded metoclopramide HCl 10 mg tablet 10 mg PO QID PRN Constipation #1 05/19/24 tab cyclobenzaprine 10 mg tablet 10 mg PO TID #30 tabs 06/03/24 duloxetine 20 mg capsule,delayed 20 mg PO BID 30 days #60 caps 06/03/24 release hydroxyzine pamoate 25 mg capsule 50 mg (2 x 25 mg) PO Q6H PRN 06/03/24 Anxiety 30 days #120 caps pantoprazole 40 mg tablet,delayed 40 mg PO DAILY 30 days #30 tabs 06/03/24 release paroxetine HCl 20 mg tablet 40 mg (2 x 20 mg) PO DAILY 30 days 06/03/24 #60 tabs ropinirole 1 mg tablet 1 mg PO BEDTIME 30 days #30 tabs 06/03/24 amlodipine 5 mg tablet 10 mg (2 x 5 mg) PO DAILY 30 days 09/23/24 #30 tabs cephalexin 500 mg capsule 500 mg PO BID 42 days #84 caps 09/23/24 Allergies Allergy/AdvReac Type Severity Reaction Status Date / Time morphine Allergy ALGY-Difficulty Verified 09/12/24 20:19 Breathing sulfamethoxazole (From Allergy ADR-Vomitin Verified 09/12/24 20:19 Bactrim) g trimethoprim (From Bactrim) Allergy ADR-Vomitin Verified 09/12/24 20:19 g PFSH ED PFSH: Medical History Suicide attempt Urinary retention Septic prepatellar bursitis of left knee Chronic pain Hyperglycemia Anemia of chronic disease Insomnia GERD (gastroesophageal reflux disease) ALEJANDRO (generalized anxiety disorder) C. 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 CKD (chronic kidney disease) stage 2, GFR 60-89 ml/min baseline Cr is around 1.0 Diabetic foot ulcer s/p surgical intervention and eventual amputation Hyperlipidemia Coronary artery disease hx of stenting Diabetic gastroparesis Diabetes mellitus type 1 diagnosed age 15, history of peripheral neuropathy, gastroparesis and nephropathy Surgical History Hx of angioplasty H/O esophagogastroduodenoscopy (12/31/20) Bile reflux gastritis, grade B esophagitis Hx of cholecystectomy History of amputation of right forefoot Below-knee amputation of left lower extremity S/P percutaneous endoscopic gastrostomy (PEG) tube placement H/O exploratory laparotomy x 3 Previous section x 3 S/P coronary artery stent placement x 1 Family History Unknown Diabetes extensive, type II Other Congestive heart failure (CHF) Social History Smoking and tobacco/nicotine status: former use of tobacco/nicotine Quit status (tobacco/nicotine): has quit using Former quit date comment: 15 yrs ago Alcohol intake: former Former alcohol use details: 15 yrs ago Substance/Drug Use: current Substance/Drug use frequency: daily Household members: spouse Marital status: Current occupation: disabled Sexually active: Yes (1, ) Female Reproductive History: Spontaneous abortions: No Physical Exam Const: COMMON NORMALS: no acute distress and well nourished HENMT: COMMON NORMALS: normocephalic HEAD & SCALP: normocephalic Eye: COMMON NORMALS: Equal, round and reactive pupils present, EOMs intact bilaterally and conjunctivae normal CONJUNCTIVA: Yes conjunctivae normal PUPIL: Yes Equal, round and reactive pupils present Neck/C-Spine: COMMON NORMALS: full ROM, no lymphadenopathy, supple, no JVD and Thyroid normal THYROID: Thyroid normal Chest: COMMONS NORMALS: normal inspection of the chest and normal palpation of entire chest wall Resp: COMMON NORMALS: normal respiratory effort, No retractions, No use of accessory muscles, clear to auscultation bilaterally and percussion normal AUSCULTATION: clear to auscultation bilaterally PERCUSSION: percussion normal Cardio: COMMON NORMALS: no JVD Extremity: COMMON NORMALS: normal to inspection, full ROM, capillary refill normal, no joint enlargement, no clubbing, cyanosis or edema, no calf tenderness and no pedal edema Psych: ACTIVITY/MOTOR BEHAVIOR: Yes hyperactivity, Yes disorganized behavior, Yes restless and Yes Avoids eye contact (attititude/behavior) THOUGHT PROCESS: confused INSIGHT: Poor insight present (Psych) Skin: COMMON NORMALS: no rashes or lesions noted, turgor normal and no jaundice GENERAL SKIN EXAM: no rashes or lesions noted and turgor normal Course Vital Signs: Vital signs: Vital Signs Temperature 98.9 F 10/31/24 21:33 Pulse Rate 103 H 10/31/24 23:46 Respiratory Rate 14 10/31/24 23:46 Blood Pressure 188/104 10/31/24 23:46 Pulse Oximetry 96 10/31/24 23:46 Oxygen Delivery Me thod Room Air 10/31/24 23:46 MDM - Psych Medical Decision Making Discussed differential diagnosis some concern that the patient may be under the influence of illicit drugs specifically methamphetamines. Psychiatric disease and off of her medications or other entities is also possible. Recommend some medication for agitation and anxiolysis to keep the patient and staff safe while we begin to work the patient up for her condition. Patient much more calm And cooperative but continues to have some concerns of altered mental status send erratic behavior I think she probably needs a hold because she is a danger to herself and possibly others. I did talk with Dr. Martinez about this for the most part medical workup here was unremarkable. I have recommended admission to the psychiatric unit and filled out psychiatric hold paperwork. Lab Data 10/31/24 22:29 03/15/25 22:29 Laboratory Results WBC 17.15 10^3/uL (3.29-11.43) H 10/31/24: RBC 2.97 10^6/uL (3.85-5.65) L 10/31/24: Hgb 8.60 g/dL (11.27-16.99) L 10/31/24: Hct 27.1 % (36-47) L 10/31/24: MCV 91.2 fl (85-98) 10/31/24: MCH 29.0 pg (27-33) 10/31/24: MCHC 31.7 g/dL (30-55) 10/31/24: RDW 14.6 % (12.1-15.1) 10/31/24 Plt Count 339 10^3/cmm (157-399) 10/31/24 MPV 8.4 fL (7.4-10.4) 10/31/24: Neut % (Auto) 92.3 % 10/31/24: Lymph % (Auto) 1.8 % 10/31/24: Dare % (Auto) 5.1 % 10/31/24: Eos % (Auto) 0.0 % 10/31/24 Baso % (Auto) 0.2 % 10/31/24 Neut # (Auto) 15.82 10^3/uL (1.8-7.7) H 10/31/24: Lymph # (Auto) 0.3 10^3/uL (0.8-4.8) L 10/31/24: Dare # (Auto) 0.9 10^3/uL (0.2-0.9) 10/31/24: Eos # (Auto) 0.0 10^3/uL (0.0-0.8) 10/31/24: Baso # (Auto) 0.0 10^3/uL (0.0-0.1) 10/31/24 Nucleated RBC % (auto) 0 % 10/31/24: Nucleated RBCs # 0.0 /100WBC 03/15/25 22:29 Sodium 138 mmol/L (136-145) 10/31/24 22: Potassium 3.4 mmol/L (3.5-5.1) L 10/31/24 22: Chloride 105 mmol/L (98-107) 10/31/24 22: Carbon Dioxide 19 mmol/L (22-29) L 10/31/24 22: Anion Gap 17.4 (5-19) 10/31/24: BUN 25 mg/dL (6-20) H 10/31/24 22: Creatinine 1.9 mg/dL (0.5-0.9) H 10/31/24 22: GFR Calculation 28.5 mL/min (90-130) L 10/31/24: Glucose 189 mg/dL (65-115) H 10/31/24: Calculated Osmolality 295 mOsm/kg (285-295) 10/31/24: Calcium 8.6 mg/dL (8.5-10.5) 10/31/24: Total Bilirubin 0.4 mg/dL (0.15-1.2) 10/31/24: AST 14 U/L (0-32) 10/31/24: ALT 6 U/L (0-33) 10/31/24: Alkaline Phosphatase 172 U/L (35-105) H 10/31/24: Total Protein 7.3 g/dL (6.6-8.7) 10/31/24: Albumin 3.4 g/dL (3.5-5.2) L 10/31/24: Globulin 3.9 g/dL (1.3-4.6) 10/31/24: HCG, Qual Negative (Negative) 10/31/24: Salicylates < 0.3 mg/dL (3-10) L 10/31/24: Urine Opiates Screen Negative ng/mL (Negative) 10/31/24: Acetaminophen < 5.0 ug/mL (10-30) L 10/31/24: Ur Barbiturates Screen Negative ng/mL (Negative) 10/31/24: Ur Phencyclidine Scrn Negative ng/mL (Negative) 03/15/25 22:26 Ur Amphetamines Screen Negative ng/mL (Negative) 10/31/24 22:26 U Benzodiazepines Scrn Negative ng/mL (Negative) 10/31/24 22:26 Urine Cocaine Screen Negative ng/mL (Negative) 10/31/24 22:26 U Marijuana (THC) Screen Positive ng/mL (Negative) H 10/31/24 22:26 No radiology studies performed this visit Discharge Plan Discharge Patient Disposition: Xfer Psychiatric Hosp Clinical Impression: Acute psychosis, Suicidal ideation Condition: Stable Coding Level of Care Code ED Hse Manager for Kim Mitchell
[2024-10-31 22:05] VITALS: BP 179/100; PULSE 112; RESP 22; O2SAT 98
[2024-10-31] MEDS: diphenhydrAMINE 50 mg/mL SDV 1mL IM (22:13)
[2024-10-31] MEDS: LORazepam 2 mg/mL INJ 1 mL IM (22:14)
[2024-10-31] MEDS: haloperidol inj 5 mg/mL INJ 1 mL IM (22:14)
[2024-10-31 22:15] VITALS: BP 187/108; PULSE 110; O2SAT 95
[2024-10-31 22:30] VITALS: BP 179/114; PULSE 111; RESP 18; O2SAT 96
[2024-10-31 22:35] VITALS: BP 198/114; PULSE 116; RESP 18; O2SAT 95
--- NOTE | 2024-10-31 22:37 | PC.NURSE ---
PT WAS PUT IN RESTRAINT BED AND NURSE WAS IN THE ROOM THROUGH THE PROCESS AND WHILE RESTRAINTS WERE ON. PT WAS VERY VIOLENT AND TRYING TO HIT AND KICK NURSES. PT WAS GIVEN MEDICATION TO EASE ANXIETY. PT WAS IN RESTRAINTS FROM [id number].
[2024-10-31 22:43] LABS: Basophils % 0.2 %; Hematocrit 27.1 % (36-47); Lymphocytes # 0.3 10^3/uL (0.8-4.8); Lymphocytes % 1.8 %; Mean Corpuscular HGB Conc 31.7 g/dL (30-55); Mean Corpuscular Volume 91.2 fl (85-98); Mean Platelet Volume 8.4 fL (7.4-10.4); Monocytes # 0.9 10^3/uL (0.2-0.9); Monocytes % 5.1 %; Neutrophils # 15.82 10^3/uL (1.8-7.7); Neutrophils % 92.3 %; Nucleated Red Blood Cells % 0 %; Platelet Count 339 10^3/cmm (157-399); Red Blood Count 2.97 10^6/uL (3.85-5.65); Red Cell Distribution Width 14.6 % (12.1-15.1); White Blood Count 17.15 10^3/uL (3.29-11.43)
[2024-10-31 22:46] LABS: HCG Qualitative Urine. Negative (Negative)
[2024-10-31 22:53] LABS: Amphetamines Screen Urine Negative (Negative); Barbiturates Screen Urine Negative (Negative); Benzodiazepines Screen Urine Negative (Negative); Cocaine Screen Urine Negative (Negative); Opiate Screen Urine Negative (Negative); PCP Screen Urine Negative (Negative); THC Screen Urine Positive (Negative)
[2024-10-31 23:03] LABS: Alanine Aminotransferase 6 U/L (0-33); Albumin Level 3.4 g/dL (3.5-5.2); Alkaline Phosphatase 172 U/L (35-105); Anion Gap 17.4 (5-19); Aspartate Amino Transferase 14 U/L (0-32); Blood Urea Nitrogen 25 mg/dL (6-20); Calcium 8.6 mg/dL (8.5-10.5); Carbon Dioxide 19 mmol/L (22-29); Chloride 105 mmol/L (98-107); Globulin 3.9 g/dL (1.3-4.6); Glomerular Filtration Rate 28.5 mL/min (90-130); Glucose 189 mg/dL (65-115); Osmolality Calculated 295 mOsm/kg (285-295); Potassium 3.4 mmol/L (3.5-5.1); Sodium 138 mmol/L (136-145); Total Bilirubin 0.4 mg/dL (0.15-1.2); Total Protein 7.3 g/dL (6.6-8.7)
[2024-10-31 23:08] LABS: Acetaminophen < 5.0 ug/mL (10-30); Salicylate < 0.3 mg/dL (3-10)
[2024-10-31 23:46] VITALS: BP 188/104; PULSE 103; RESP 14; O2SAT 96
[2024-11-01] VITALS (13 sets, daily range): BP systolic 119–227; BP diastolic 68–128; PULSE 85–108; RESP 10–22; TEMP 36.6–36.9; O2SAT 97–99; BMI 44.2
--- NOTE | 2024-11-01 01:41 | PC.NURSE ---
ASKED PROVIDER ABOUT PT BP BEING HIGH AND HER WBC BEING HIGH IN REGARDS TO SENDING PT TO [facility], PROVIDER WAS AWARE AND STATED IT WAS FINE FOR PT TO BE ADMITTED TO N[facility].
--- NOTE | 2024-11-01 01:43 | PC.NURSE ---
96 Hour Hold Education provided to patient regarding placement under 96 hour hold. When asked if patient knew what this meant, patient said mmhm. When asked if she had any questions, patient stated no.
[2024-11-01] MEDS: amlodipine 10 mg Tablet PO (02:29)
[2024-11-01] MEDS: cloNIDine 0.1 mg Tablet PO ×4 (04:25→21:37)
--- NOTE | 2024-11-01 06:41 | PC.NURSE ---
CLONIDINE Dr. Martinez gave telephone order for early administration of a second dose of 0.1mg clonidine to tx the pt's bp
[2024-11-01 06:45] LABS: Glucose Point of Care 270 mg/dL (70-110)
--- NOTE | 2024-11-01 07:08 | PC.NURSE ---
Administered 0.[address] Martinez telephone order. Pt is being transferred to [facility] shortly.
[2024-11-01] MEDS: insulin lispro 100 unit/1 mL SUBCUT ×2 (08:02→12:58)
[2024-11-01] MEDS: acetaminophen 325 mg Tablet 650 MG PO (08:13)
--- NOTE | 2024-11-01 09:30 | PC.NURSE ---
received pt from [facility] Pt is sedated,able to open eyes and answer her full name,, year and where she's at, but sleepy. Unable to finish her admission. BP-162/89. Per dr Portillo to hold her 9 am dose of Catapres and start the med this afternoon since pt received total of 0.2 mg of catapres dose in NPU. 1:1 sitter at bedside. IV started on right upper arm via neda by ER nurse around 1pm. 1500-pt reported of pain on her back. Notified received med once time. Pt started to get restless and tried to induce herself by placing her fingers in her mouth to vomit. Educated pt. reinforcement needed. noted pt walk on her stump even with educating her. Pt stated, i need to take a shower, that helps my pain and nausea. Assisted pt to bring her to shower room with a wheelchair. Wound assessment- Applied wet to dry dressing, covered with abdominal pad and kerlix gauze on her the wound below her left stump.
[2024-11-01 10:58] LABS: Basophils % 0.2 %; Hematocrit 32.9 % (36-47); Lymphocytes # 0.6 10^3/uL (0.8-4.8); Mean Corpuscular HGB Conc 30.4 g/dL (30-55); Mean Corpuscular Hemoglobin 28.6 pg (27-33); Mean Platelet Volume 9.3 fL (7.4-10.4); Monocytes # 0.7 10^3/uL (0.2-0.9); Monocytes % 3.4 %; Neutrophils # 18.96 10^3/uL (1.8-7.7); Neutrophils % 92.8 %; Nucleated Red Blood Cells % 0 %; Platelet Count 397 10^3/cmm (157-399); Red Cell Distribution Width 14.7 % (12.1-15.1); White Blood Count 20.45 10^3/uL (3.29-11.43)
--- NOTE | 2024-11-01 11:21 | P.PN_ITS ---
Subjective 2 Subjective: Patient made this morning to [facility]. She is found to have severely elevated blood pressures. Patient seen and evaluated in the M[facility] unit. She states that she is feeling slightly better. She reports that she only takes amlodipine at home for blood pressure. Denies any chest pain, shortness of breath, or headaches. Discussed plan of care including transferring to [facility] until blood pressure improves. Medications: Reviewed: Yes Vitals/I&O/Wt Last Vital Signs Temp 98.4 F 11/01/24 06:00 Pulse 85 11/01/24 09:20 Resp 14 11/01/24 09:20 BP 162/89 11/01/24 09:20 Pulse Ox 99 11/01/24 09:20 O2 Del Method Room Air 11/01/24 09:20 Weight last 48 hrs Weight 65.771 kg Weight 65.771 kg Physical Exam 2 Narrative: General: Patient is awake. Head: Normocephalic. EOM intact. Neck: No JVD. Cardiovascular: RRR. No gallops. No murmurs. Hypertensive. Lungs: Clear to auscultation, no use of accessory muscles, no crackles or wheezes. Skin: No jaundice. No rashes. Abdomen: Normal bowel sounds, abdomen soft and nontender. Genito Urinary: Genital exam not performed since complaints not related. Rectal: Rectal exam not performed since no symptoms indicated blood loss. Extremities: No cyanosis or clubbing. Bilateral lower extremity amputations. Left BKA stump wound. Musculoskeletal:No swollen or erythematous joints. Neurological: Moves all 4 extremities. No myoclonus. Data 11/01/24 10:30 10/31/24 22:29 A&P Assessment and plan (1) Hypertension: Presentation consistent with hypertensive urgency Transfer to [facility] for initiation of IV antihypertensives Plan to continue home Norvasc 10 mg daily, she already received a dose early a.m. this morning Start scheduled clonidine 0.1 mg 3 times daily IV hydralazine for severely elevated blood pressures Will utilized nicardipine drip if needed Ensure pain control Avoid overcorrection of blood pressure Telemetry monitoring Qualifiers: Hypertension type: unspecified Qualified Code(s): I10 - Essential (primary) hypertension (2) Leukocytosis: Patient present with significant leukocytosis She has a extensive history of wounds Repeat blood work ordered for this morning Obtain inflammatory markers Check urinalysis Start oral antibiotics while awaiting above results (3) Chronic kidney disease: Chronic kidney disease Avoid hepatotoxins Renally dose medications Qualifiers: Chronic kidney disease stage: unspecified stage Qualified Code(s): N 18.9 - Chronic kidney disease, unspecified (4) Psychosis: Patient is severely admitted to [facility] for psychosis Will defer psychiatric medications to psychiatry Anticipate disposition back to [facility] when medically appropriate Plan DVT prophylaxis: Heparin PDMP PDMP Reviewed: Not Reviewed Attestations 2 Medical Necessity Statement*: Patient requires ongoing hospitalization for control of her severely elevated blood pressures, psychosis, and supportive care. Coding Level of Care Code Acute Code for [facility] Fwd Diagnoses Hypertension, unspecified type I10 Hypertension type: unspecified Leukocytosis D72.829 Chronic kidney disease N18.9 Chronic kidney disease stage: unspecified stage Psychosis F29
[2024-11-01 11:31] LABS: Procalcitonin 1.45 ng/mL (0-0.5)
[2024-11-01 11:42] LABS: Alanine Aminotransferase 8 U/L (0-33); Albumin Level 3.4 g/dL (3.5-5.2); Alkaline Phosphatase 198 U/L (35-105); Anion Gap 19.2 (5-19); Aspartate Amino Transferase 15 U/L (0-32); Blood Urea Nitrogen 24 mg/dL (6-20); Carbon Dioxide 19 mmol/L (22-29); Chloride 98 mmol/L (98-107); Globulin 4.2 g/dL (1.3-4.6); Glomerular Filtration Rate 30.3 mL/min (90-130); Glucose 223 mg/dL (65-115); Osmolality Calculated 287 mOsm/kg (285-295); Potassium 3.2 mmol/L (3.5-5.1); Sodium 133 mmol/L (136-145); Total Bilirubin 0.3 mg/dL (0.15-1.2); Total Protein 7.6 g/dL (6.6-8.7)
--- NOTE | 2024-11-01 12:01 | P.NPUHP_ITS ---
Providers/Chief Complaint 2 Admitting Physician: Sha Martinez MD Primary Care Provider: Monika Simpson MD Chief Complaint: self harm, severe abd MHE HPI NPU History of Present Illness Cherrie Solomon is a 44 year old female with a history of multiple medical problems most recently discharged from the neuropsychiatric unit in May 2024 who presented to the emergency department with complaints of having suicidal thoughts and intractable pain. She reports that she has been stabbing her thigh with a fork repeatedly over the past few days. The patient reports that she has not been able to manage her pain in her thighs. She reports that she has been having more panic attacks. She reports having strong chronic struggles with anxiety. She minimized any drug or alcohol use other than marijuana use for managing pain. Her urine drug screen was negative for all drugs and alcohol other than marijuana. She reports that she has been compliant with pain medications but states that no one was willing to give her Percocets for pain despite the patient denying any history of misuse of opiates. Patient endorses some feelings of hopelessness. She denies any auditory hallucinations. She denies any current manic symptoms. She reports some diminished appetite. She reports that she has been more frequently tearful. She reported no overall change in stressors other than the continued inability to tolerate pain and anxiety. The patient was admitted to the neuropsychiatric unit for further evaluation and treatment. Upon arrival, the patient had significant elevation in systolic and diastolic blood pressure in was transferred this morning on 11/01/2024 to the crisis stabilization unit for continued treatment. She reported no substantial differences since her last psychiatric hospitalization. The patient had reported to having panic attacks on triggered on a nearly daily basis. She reports some difficulties with falling asleep secondary to anxiety and pain. Psychiatric history: Multiple inpatient psychiatric hospitalizations. No current outpatient psychiatric services other than med management by primary care physician. Medical history: GERD, hyponatremia, septic prepatellar bursitis of the left knee, urinary retention, acute renal failure, hyponatremia C. 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 Medications: Amlodipine, Keflex, cyclobenzaprine, Cymbalta 20 mg twice a day, hydroxyzine, metoclopramide, pantoprazole, Paxil 40 mg daily, pregabalin 50 mg twice a day, Seroquel 100 mg at night, ropinirole 1 mg at night Excerpt from NPU Discharge summary from 06/03/24 Discharge Diagnosis (1) Anemia of chronic disease: Status: Inactive (2) Suicide ideation: Status: Resolved (3) Acute flank pain: Status: Acute (4) Depression: Status: Acute Qualifiers: Depression Type: unspecified Qualified Code(s): F32.9 - Major depressive disorder, single episode, unspecified (5) Below-knee amputation of left lower extremity: Status: Inactive (6) ALEJANDRO (generalized anxiety disorder): Status: Inactive (7) Diabetic ophthalmopathy: Status: Acute (8) Diabetic gastroparesis: Status: Acute (9) Insomnia: Status: Inactive Qualifiers: Insomnia type: due to medical condition Qualified Code(s): G47.01 - Insomnia due to medical condition (10) Diabetes mellitus type 1: Status: Acute Qualifiers: Diabetes mellitus complication status: with hyperglycemia Qualified Code(s): E10.65 - Type 1 diabetes mellitus with hyperglycemia Permanent problem details: diagnosed age 15, history of peripheral neuropathy, gastroparesis and nephropathy (11) GERD (gastroesophageal reflux disease): Status: Inactive Qualifiers: Esophagitis presence: without esophagitis Qualified Code(s): K21.9 - Gastro-esophageal reflux disease without esophagitis (12) Amputation of toe of right foot: Status: Acute (13) Combative behavior: Status: Acute (14) Suicide attempt: Status: Inactive (15) History of financial difficulties: Status: Acute (16) Infection of amputation stump: Status: Acute (17) Pain of amputation stump of left lower extremity: Status: Acute (18) Low back pain: Status: Acute Reason for Visit ch eval Brief History: Providers/Chief Complaint Admitting Physician: Sonali Emery MD Primary Care Provider: Monika Simpson MD Chief Complaint: Psych eval HPI NPU History of Present Illness Cherrie Solomon is a 44 year old female who presented to the emergency department with the following report: Chief Complaint: Psychiatric Symptoms Stated Complaint: Psych eval Time Seen by Provider: 05/23/24 22:16 History of Present Illness: 44-year-old female well-known to the emergency department service. She presents by EMS ambulance. They were called for self-harm behavior and suicidal ideations. She presents combative, not answering questions, thrashing around in bed. She is currently having to be held down and striking at staff. No distinct history is able to be obtained from this patient. She was admitted to the ICU for definitive treatment of those issues. She was placed on a 96-hour hold secondary to her behaviors and reports of lethality. A psychiatric consult was requested to assist in determining how to manage her situation. She is known to inpatient and outpatient psychiatric services through treatment at [facility]. Her last inpatient discharge was in October 2021 and an excerpt of the discharge summary is included below for context. She was a limited historian today as she had just received some medications because as the Precedex was being lowered she became combatant and was trying to bang her head. She presents reporting that since we last saw her back in 2021 that she has been doing okay, staying at the same residence with her daughter her 3 grandchildren and her . But she denied being actively involved in treatment. 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 She reports that she came here because she was in significant pain and that she felt like killing herself if the pain was not managed. We discussed speaking to her as she got clear and trying to figure out if there is some adjustments we can make in medication in order to assist her with her depression. Per her 11/13/2021 [facility] inpatient psychiatric discharge summary: History of Present Illness Cherrie Solomon is a 41 year old female admitted through our emergency department with the following report: HPI: [41]yo patient w/ hx of SI/self-harm behavior BIBA for significant r side flank pain and desire for suicide. Patient tells me that for the last day she has sustained significant right-sided flank pain. Patient has history of renal colic. Patient says that she can no longer take the pain started hitting her head against the wall. on arrival, the patient is AAOx3 and cooperative with my evaluation. No focal complaints of chest pain, shortness of breath, palpitations, N/V, focal GI/ complaints. Currently reports SI. No complaints of hallucinations. She was admitted to the neuropsychiatry unit for definitive treatment of these issues. She says that she has been doing fairly well up until yesterday. Her pain increased yesterday. She was good.. She said that she has been trying to cut down some on her pain medications but had plenty. She denies anything bad happening. She denies any extra stress or increased activity. She has been frequently putting her finger down her throat making herself throw up. He says that is to divert her thoughts from the pain. She says that her pain currently is about 8. She was given some oxycodone at 1:30 AM but they say that she made herself throw up shortly afterwards and probably did not get much effect.HPI: [41]yo patient w/ hx of SI/self-harm behavior BIBA for significant r side flank pain and desire for suicide. Patient tells me that for the last day she has sustained significant right-sided flank pain. Patient has history of renal colic. Patient says that she can no longer take the pain started hitting her head against the wall. on arrival, the patient is AAOx3 and cooperative with my evaluation. No focal complaints of chest pain, shortness of breath, palpitations, N/V, focal GI/ complaints. Currently reports SI. No complaints of hallucinations. Below is the discharge summary from her most recent admission: BACK PAIN Brief History: History of Present Illness Cherrie Solomon is a 41 year old female admitted through the emergency department with the following report: Chief Complaint: Psychiatric Symptoms Stated Complaint: BACK PAIN Time Seen by Provider: 09/09/21 18:41 History of Present Illness: HPI Narrative: This is a 41-year-old female who left our neuropsychiatric unit yesterday. She had come in because she was banging her head against the wall, evidently due to uncontrolled chronic pain she had said. EMS was called her house again with the same complaint today. She was violent, thrashing around, banging her head on the wall. After being loaded into the ambulance, she proceeded to bang her head on the side railing and the wall of the ambulance. She was given ketamine in route for this. On my evaluation she is not answering questions. She is sitting up in the bed and three-point restraints (she has a lower extremity amputation) banging her head on the side railing. She did tell EMS that she wanted to . MD complaint: suicidal ideation and altered mental status Onset (ago): hour(s) Duration: constant History of same: Yes Relieving factors: none Exacerbating factors: none Context: not taking psychiatric medications Associated psychiatric symptoms: depression Associated symptoms: Reports other Treatments prior to arrival: physical restraints and chemical restraints She was admitted to the neuropsychiatry unit for definitive treatment of her issues. She continues to be trying to get herself complaining of severe back pain. She does not know what was different. She continues to take pain medication and says that she still has some left. She used marijuana on the day that she went home but not yesterday. She was unable to say how bad the pain was the day that she went home but it was much worse yesterday. She says that she was not much more active yesterday. He does not think that increased activity because the pain to be worse. She says that she wants to because the pain is so bad. She reports that she has no idea what caused her pain to be worse. Her urine drug screen was only positive for marijuana. Multiple admissions and each time she comes in with pain so bad that she wants to . She was just released from the hospital 2 days ago with the following discharge summary: Diagnoses at Discharge Discharge Diagnosis (1) Intentional self-harm: Status: Acute (2) Suicidal ideation: Status: Acute (3) Insomnia: Status: Acute Qualifiers: Insomnia type: due to medical condition Qualified Code(s): G47.01 - Insomnia due to medical condition (4) GERD (gastroesophageal reflux disease): Status: Acute Qualifiers: Esophagitis presence: without esophagitis Qualified Code(s): K21.9 - Gastro-esophageal reflux disease without esophagitis (5) ALEJANDRO (generalized anxiety disorder): Status: Acute (6) Noncompliance: Status: Acute (7) Dehiscence of amputation stump: Status: Acute (8) Foot osteomyelitis, right: Status: Acute Qualifiers: Osteomyelitis type: other chronic Qualified Code(s): M86.671 - Other chronic osteomyelitis, right ankle and foot (9) Diabetic ophthalmopathy: Status: Acute (10) Coronary artery disease: Status: Acute Permanent problem details: hx of stenting Qualifiers: Coronary Disease-Associated Artery/Lesion type: [place] artery [place] vs. transplanted heart: [place] heart Associated angina: without angina Qualified Code(s): I25.10 - Atherosclerotic heart disease of [place] coronary artery without angina pectoris (11) Diabetic neuropathy: Status: Acute Qualifiers: Diabetes mellitus type: type 1 Diabetes mellitus complication detail: diabetic polyneuropathy Qualified Code(s): E10.42 - Type 1 diabetes mellitus with diabetic polyneuropathy (12) Amputation of toe of right foot: Status: Acute Reason for Visit: SELF HARM COMBATIVE Brief History: History of Present Illness Cherrie Solomon is a 41 year old female who presented to the emergency department with the following report: Chief complaint: Psychiatric Symptoms Stated complaint: SELF HARM COMBATIVE Time Seen by Provider: 08/29/21 11:08 History of Present Illness: HPI narrative: HPI: [41]yo patient w/ hx of depression BIBA for suicidal ideation. Patient was found banging her head against the wall. EMS gave patient 250mg of IM ketamine to calm her down and stop self-harm/ On arrival, the patient is AAOx3 and cooperative with my evaluation. No focal complaints of chest pain, shortness of breath, palpitations, N/V, focal GI/ complaints. Denies HI currently. No complaints of hallucinations. Onset: acute Duration: ongoing Location: home Severity: severe Associated symptoms: Deny chest pain, dyspnea, nausea, rash, palpitations or vomiting. He was admitted to the neuropsychiatric unit for definitive treatment of those issues. He presents reporting that this is her first psychiatric hospitalization but she is known to this marketing writer through inpatient consult. Reports he had outpatient services at [facility] in [place] and reports that she take Cymbalta and Seroquel. She denies smoking cigarettes drinking alcohol, does report daily marijuana the other illicit drugs but does report getting pain medication and reports that he never been to rehab or had a DUI. She essentially reports that she is here for the same reason she was on the inpatient MedSurg unit when I saw her before which is being so depressed because her pain is not well managed. She has a abrasion on the middle of her forehead which she reports is from banging her head from frustration. She also showed me her thigh and for that the bruising that was notable on the right thigh related to taking a fork and hitting her leg but not piercing the skin. About the lack of expertise that the unit has in relation to pain management and that her best option to get her pain management would be returning to the pain management clinic. There is not to be any doctors in the hospital that are going to suggest that they had a better understanding of her situation and that her pain clinic does. She had not been taking her Cymbalta so we discussed the risk-benefit alternatives of restarting the Cymbalta and 20 mg twice a day with a plan to discharge at the 30 mg that she was taking.. An excerpt from the consult is included below for context. Though she has had other consultation contact later in the year last year. Hospital Course Hospital Course She slowly acclimated to the individual, group and milieu therapies provided. Like most of her hospitalizations, she presented with significant medical concerns specifically for pain and endorsing lethality secondary to her pain not being managed. She spent the initial part of the hospitalization going back and forth between medicine and the neuropsychiatric unit. She was multiple times restrained with the difficulties that come with restraining a double amputee. Eventually we did increase her Paxil to 40 mg p.o. daily and started her on Cymbalta 20 mg p.o. twice daily. The medical team had significant input and involvement and attempted to manage her pain and create a follow-up with pain management given that this pattern of her presenting like this with pain as a focal point of her concerns is common. She had a positive response to the medications provided by both the psychiatric team and the hospitalist team. She work with the social work team to get appropriate outpatient resources and follow-ups. She was able to contract for safety outside the hospital prior to discharge. She had significant improvement from initial presentation. During the hospitalization, patient had routine laboratory studies which were within normal limits except for few outliers. Additionally there was a general medical evaluation which was also within normal limits and revealed no new acute processes. Any concerns that did arise during the stay were managed by the hospitalist team. Discharge Summary: At the time of discharge, she denied psychosis or lethality. Mood and anxiety were well managed. Patient endorsed a plan to avoid all drugs of abuse and follow-up with the aftercare recommendations of the treatment team. Patient was evaluated and deemed to be absent credible lethality, and had achieved the maximum benefit from an inpatient hospitalization, so was discharged. Meds NPU Home Medications ?Medication ?Instructions ?Recorded ?Confirmed ?Last Taken ?Type pregabalin 50 mg capsule 50 mg PO BID 05/17/2405/16/24 History metoclopramide HCl 10 mg tablet 10 mg PO QID PRN Const ipation #1 05/19/24 09/13/24 05/16/24 Rx tab cyclobenzaprine 10 mg tablet 10 mg PO TID #30 tabs 09/13/24 Unknown Rx duloxetine 20 mg capsule,delayed 20 mg PO BID 30 days #60 caps 06/03/24 09/13/24 Unknown Rx release hydroxyzine pamoate 25 mg capsule 50 mg (2 x 25 mg) PO Q6H PRN 06/03/24 09/13/24 Unknown Rx Anxiety 30 days #120 caps pantoprazole 40 mg tablet,delayed 40 mg PO DAILY 30 da ys #30 tabs 06/03/24 09/13/24 Unknown Rx release paroxetine HCl 20 mg tablet 40 mg (2 x 20 mg) PO DAILY 30 days 06/03/24 09/13/24 Unknown Rx #60 tabs ropinirole 1 mg tablet 1 mg PO BEDTIME 30 days #30 tabs 06/03/24 09/13/24 Unknown Rx naloxone 4 mg/actuation nasal See Rx Instructions .Rou te .COMPLEX 09/13/24 09/13/24 Unknown History spray (Narcan) quetiapine 100 mg tablet 100 mg PO BEDTIME 09/13/24 0 09/13/24 Unknown History amlodipine 5 mg tablet 10 mg (2 x 5 mg) PO DAILY 30 days 09/23/24 09/13/24 Unknown Rx #30 tabs cephalexin 500 mg capsule 500 mg PO BID 42 days #84 ca ps 09/23/24 Unknown Rx amlodipine 10 mg tablet 10 mg PO DAILY 11/01/2410/17 Unknown History Allergies Allergy/AdvReac Type Severity Reaction Status Date / Time morphine Allergy ALGY-Difficulty Verified 09/12/24 20:19 Breathing sulfamethoxazole (From Allergy ADR-Vomitin Verified 09/12/24 20:19 Bactrim) g trimethoprim (From Bactrim) Allergy ADR-Vomitin Verified 09/12/24 20:19 g PFSH NPU 2 PFSH: Medical History Suicide attempt Urinary retention Septic prepatellar bursitis of left knee Chronic pain Hyperglycemia Anemia of chronic disease Insomnia GERD (gastroesophageal reflux disease) ALEJANDRO (generalized anxiety disorder) C. 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 CKD (chronic kidney disease) stage 2, GFR 60-89 ml/min baseline Cr is around 1.0 Diabetic foot ulcer s/p surgical intervention and eventual amputation Hyperlipidemia Coronary artery disease hx of stenting Diabetic gastroparesis Diabetes mellitus type 1 diagnosed age 15, history of peripheral neuropathy, gastroparesis and nephropathy Surgical History Hx of angioplasty H/O esophagogastroduodenoscopy (12/31/20) Bile reflux gastritis, grade B esophagitis Hx of cholecystectomy History of amputation of right forefoot Below-knee amputation of left lower extremity S/P percutaneous endoscopic gastrostomy (PEG) tube placement H/O exploratory laparotomy x 3 Previous section x 3 S/P coronary artery stent placement x 1 Family History Unknown Diabetes extensive, type II Other Congestive heart failure (CHF) Social History Smoking and tobacco/nicotine status: former use of tobacco/nicotine Quit status (tobacco/nicotine): has quit using Former quit date comment: 15 yrs ago Alcohol intake: former Former alcohol use details: 15 yrs ago Substance/Drug Use: current Substance/Drug use frequency: daily Household members: spouse Marital status: Current occupation: disabled Sexually active: Yes (1, ) Female Reproductive History: Spontaneous abortions: No Mental Status Exam 2 MSE Comments: This is an overweight white female in hospital scrubs with limited grooming and eye contact with notable below-knee amputation bilaterally lying in hospital bed. No abnormal involuntary motor movements were appreciated. She was?cooperative with exam in no acute distress.? Speech was slightly decreased in rate and normal in volume.? Mood described as depressed and anxious. Affect was mood congruent and restricted. Thought process was linear and logical. Thought content: Patient endorsed suicidal ideation and denied homicidal ideation. There was no evidence of delusional thinking. She denied auditory or visual hallucinations and did not appear to be responding to internal stimuli. Attention and concentration were limited and memory appeared more reliable but none were formally tested.? She is alert and oriented x3.? Insight, judgment and impulse control are all limited versus impaired. Vitals/I&O/Wt Last Vital Signs Temp 98.4 F 11/01/24 06:00 Pulse 85 11/01/24 09:20 Resp 14 11/01/24 09:20 BP 162/89 11/01/24 09:20 Pulse Ox 99 11/01/24 09:20 O2 Del Method Room Air 11/01/24 09:20 Weight last 48 hrs Weight 65.771 kg Weight 65.771 kg Data NPU 11/01/24 10:30 11/01/24 10:30 A&P Assessment and plan (1) Dysthymic disorder: (2) Suicidal ideation: (3) ALEJANDRO (generalized anxiety disorder): (4) Panic attacks: Plan 44 year old with multiple medical problems with history of depression, anxiety and borderline personality traits endorsing suicidal ideation with history of noncompliance with medications. #1.? Engage patient in individual milieu and group therapy. #2?? Recommend sober living treatment at the highest level of care to which the patient is willing to commit #3??? Add Klonopin .25mg bid, Increase seroquel 150mg at night, decrease cymbalta to 20mg daily with plan to taper and discontinue, continue Paxil as prescribed at 40mg daily. #4?? TO-15 minute checks? #5?? Will attempt to gather collateral information PDMP PDMP Reviewed: Not Reviewed Involuntary Hold Information 2 96 Hour Hold: 96 Hour Involuntary Admission: No Attestations NPU 2 Medical Necessity Statement*: Inpatient hospitalization is medically necessary and deemed to be the clinically appropriate intervention at this time. Medications will be adjusted and initiated as indicated.? The patient will be hospitalized for at least 2 midnights.? The patient?s likely length of stay is 4-6 days. ? Coding Level of Care Code Acute Code for [facility] Fwd Diagnoses Dysthymic disorder F34.1 Suicidal ideation R45.851 ALEJANDRO (generalized anxiety disorder) F41.1 Panic attacks F41.0
[2024-11-01 12:15] LABS: Glucose Point of Care 167 mg/dL (70-110)
[2024-11-01] MEDS: ondansetron 4 MG Tablet PO (12:30)
[2024-11-01] MEDS: potassium chloride ER 20 mEq Tablet 40 MEQ PO (12:30)
[2024-11-01] MEDS: PARoxetine 20 mg Tablet 40 MG PO (12:59)
[2024-11-01] MEDS: hyDROXYzine 25 mg Capsule 50 MG PO (12:59)
[2024-11-01] MEDS: ceFAZolin 1,000 mg SDV 1000 MG IVP ×2 (13:16→21:38)
[2024-11-01] MEDS: LORazepam 2 mg/mL INJ 1 mL IM (13:33)
[2024-11-01] MEDS: oxyCODONE-APAP 5-325 mg Tablet 1 TAB PO (13:53)
[2024-11-01 17:19] LABS: Glucose Point of Care 114 mg/dL (70-110)
[2024-11-01] MEDS: CLONazepam 0.5 mg Tablet 0.25 MG PO (21:38)
[2024-11-01 21:40] LABS: Glucose Point of Care 105 mg/dL (70-110)
[2024-11-02] VITALS (13 sets, daily range): BP systolic 93–137; BP diastolic 52–77; PULSE 63–92; RESP 16–27; TEMP 36.4–36.9; O2SAT 92–99
[2024-11-02] MEDS: acetaminophen 325 mg Tablet 650 MG PO ×2 (02:31→20:54)
[2024-11-02] MEDS: hyDROXYzine 25 mg Capsule 50 MG PO ×3 (02:32→20:12)
[2024-11-02 03:51] LABS: Basophils # 0.1 10^3/uL (0.0-0.1); Basophils % 0.4 %; Eosinophils # 0.1 10^3/uL (0.0-0.8); Eosinophils % 0.5 %; Hematocrit 28.5 % (36-47); Lymphocytes # 1.2 10^3/uL (0.8-4.8); Lymphocytes % 8.4 %; Mean Corpuscular HGB Conc 31.2 g/dL (30-55); Mean Corpuscular Hemoglobin 28.7 pg (27-33); Mean Corpuscular Volume 91.9 fl (85-98); Mean Platelet Volume 8.6 fL (7.4-10.4); Monocytes # 0.8 10^3/uL (0.2-0.9); Monocytes % 5.5 %; Neutrophils # 11.86 10^3/uL (1.8-7.7); Neutrophils % 84.7 %; Nucleated Red Blood Cells % 0 %; Platelet Count 385 10^3/cmm (157-399); Red Cell Distribution Width 15.2 % (12.1-15.1); White Blood Count 13.99 10^3/uL (3.29-11.43)
[2024-11-02 04:14] LABS: Anion Gap 15.4 (5-19); Blood Urea Nitrogen 31 mg/dL (6-20); Calcium 8.5 mg/dL (8.5-10.5); Carbon Dioxide 22 mmol/L (22-29); Chloride 100 mmol/L (98-107); Glomerular Filtration Rate 18.2 mL/min (90-130); Glucose 104 mg/dL (65-115); Magnesium 1.8 mg/dL (1.7-2.3); Phosphorus 3.3 mg/dL (2.5-4.5); Potassium 3.4 mmol/L (3.5-5.1); Sodium 134 mmol/L (136-145)
[2024-11-02] MEDS: ceFAZolin 1,000 mg SDV 1000 MG IVP (04:32)
[2024-11-02] MEDS: potassium chloride ER 20 mEq Tablet 40 MEQ PO (05:24)
[2024-11-02 05:51] LABS: Bilirubin Urine Negative (Negative); Blood Urine 1+ (Negative); Glucose Urine UA 2+ (Normal); Ketones Urine Trace (Negative); Leukocyte Esterase Urine Negative (Negative); Nitrate Urine Negative (Negative); Protein Urine 4+ (Negative); Specific Gravity, Urine 1.023 (1.005-1.030); Urine Appearance Cloudy (CLEAR); Urine Color Yellow (Yellow); Urobilinogen Urine 0.2 mg/dL (Negative); pH Urine 5.5 (5-7)
[2024-11-02 06:30] LABS: Glucose Point of Care 106 mg/dL (70-110)
[2024-11-02 06:58] LABS: UA Manual Slide Review YES; UA Slide Review UA Slide Review Perf
--- NOTE | 2024-11-02 06:58 | P.PN_ITS ---
Subjective 2 Subjective: Patient is off Cardene drip, Discontinue clonidine will use amlodipine, metoprolol and isosorbide mononitrate Leukocytosis trending down, Right knee swollen and warm, will consult orthopedics Dr. Salas Currently patient is on Ancef Patient endorsing history of right knee drainage in the past it was done by Dr. Nelson She does have high inflammatory markers with high procalcitonin Cloudy urine but does not seem to have UTI Vitals/I&O/Wt Last Vital Signs Temp 97.8 F 11/02/24 04:06 Pulse 79 11/02/24 04:06 Resp 20 H 11/02/24 04:06 BP 118/68 11/02/24 04:06 Pulse Ox 98 11/02/24 04:06 O2 Del Method Room Air 11/02/24 04:06 11/01/24 11/01/24 11/02/24 14:59 22:59 06:59 Intake Total 480 / 480 Balance 480 / 480 Weight last 48 hrs Weight 65.816 kg Weight 65.771 kg Weight 65.771 kg Physical Exam 2 Narrative: Awake and alert GCS 15 Euvolemic Nonfocal neuroexam Right knee swollen, warm to touch, Left amputation site covered with dressing GCS hemodynamically stable Currently on room air Pleasant and cooperative S1, S2 Data 11/02/24 03:13 11/02/24 03:13 Micro: Microbiology 11/01/24 02:40 Gram Stain - Final Leg - Wound A&P Assessment and plan (1) Hypertension: Off Cardene drip, discontinue clonidine which can cause increase the risk of rebound hypertension, will use isosorbide mononitrate along amlodipine and metoprolol Qualifiers: Hypertension type: unspecified Qualified Code(s): I10 - Essential (primary) hypertension (2) Leukocytosis: Patient present with significant leukocytosis She has a extensive history of wounds Repeat blood work ordered for this morning Obtain inflammatory markers Check urinalysis Start oral antibiotics while awaiting above results (3) Chronic kidney disease: Worsening kidney function noted, patient endorsing voiding urine, Monitor kidney function for now Qualifiers: Chronic kidney disease stage: unspecified stage Qualified Code(s): N 18.9 - Chronic kidney disease, unspecified (4) Psychosis: No acute decompensation (5) Knee swelling: Patient will need drainage of right knee fluid collection Will consult Dr. Salas orthopedics Patient already on antibiotics leukocytosis trending down, no active fever Plan DVT prophylaxis: Hold anticoagulating agent patient will need drainage of right knee PDMP PDMP Reviewed: Not Reviewed Attestations 2 Medical Necessity Statement*: Patient need to stay on CSU until right knee is drained Diagnoses Hypertension, unspecified type I10 Hypertension type: unspecified Leukocytosis D72.829 Chronic kidney disease N18.9 Chronic kidney disease stage: unspecified stage Psychosis F29 Knee swelling M25.469
[2024-11-02 07:00] LABS: RBC Urine 0-4 /hpf (0-2)
[2024-11-02 07:01] LABS: Bacteria Urine 1+ /hpf; Mucus Urine TRACE /hpf
[2024-11-02 07:02] LABS: Amorphous Sediment Urine 1+ /hpf; Fine Granular Casts Urine 0-4 /lpf; Hyaline Casts Urine 0-4 /lpf
[2024-11-02 07:03] LABS: Add Urine Culture? No
--- NOTE | 2024-11-02 07:32 | PC.NURSE ---
0439- Patient has potassium of 3.4 and requesting replacements. Recieved orders for 40 meq PO once.
--- NOTE | 2024-11-02 07:57 | CTR_ITS ---
PROCEDURE INFORMATION: Exam: CT Right Lower Extremity, Knee Exam date and time: 11/02/2024 9:27 AM Age: 44 years old Clinical indication: Swelling or effusion of joint; Prior surgery; Surgery date: 6+ months; Surgery type: Below the knee amputation bilateral; Additional info: Effussion TECHNIQUE: Imaging protocol: CT of the right lower extremity without contrast was performed. Exam focused on the knee. Radiation optimization: All CT scans at this facility use at least one of these dose optimization techniques: automated exposure control; mA and/or kV adjustment per patient size (includes targeted exams where dose is matched to clinical indication); or iterative reconstruction. COMPARISON: CT femur RT w con [id number] 09/14/2024 1:19 PM RADIATION DOSE METRICS: Total DLP (mGy-cm): 342.9 FINDINGS: Bones/joints: Again seen is prepatellar fluid collection measuring 5.1 x 8.2 x 10.1 cm. This shows increase in size. The collection has thick soft tissue density rim. No acute fracture. Soft tissues: There are subcutaneous soft tissue density stranding changes involving the anterior arrington. This is incompletely imaged. Vasculature: Diffuse calcified atherosclerotic changes are seen. Other findings: Bilateral BKA changes are seen. CT/CT knee RT wo con* [id number] IMPRESSION: 1. Again seen is prepatellar fluid collection. This has shown interval increase in size. Infectious etiology can not be excluded. Direct clinical exam is advised 2. Incompletely imaged subcutaneous soft tissue density stranding changes involving the anterior arrington. Cellulitis can not be excluded. Direct clinical exam is advised. 3. Diffuse calcified atherosclerotic changes are seen.
[2024-11-02] MEDS: CLONazepam 0.5 mg Tablet 0.25 MG PO ×2 (09:02→17:05)
[2024-11-02] MEDS: PARoxetine 20 mg Tablet 40 MG PO (09:02)
[2024-11-02] MEDS: isosorbide mononitrate 20 mg Tablet PO (09:02)
[2024-11-02] MEDS: amlodipine 10 mg Tablet PO (09:03)
[2024-11-02] MEDS: VANCOMYCIN ADD-Vantage 1,000 MG in 0.9% NaCl ADD-Vantage 250 ML 250 MG IV (09:03)
[2024-11-02] MEDS: metoprolol tartrate 25 mg Tablet PO ×2 (09:04→20:12)
--- NOTE | 2024-11-02 10:12 | PC.OT ---
OT EVALUATION ORDERS FOR NPU RECEIVED. PATIENT IS ON CSU. WILL AWAIT RETURN TO NPU
--- NOTE | 2024-11-02 10:48 | PHA.VACGOAL ---
Vancomycin Goal - Goal Vancomycin Goal:: 10-15 mg/L Vancomycin Indication:: SSTI - Therapy Day of therpy:: Day []of [] . Actual body weight (kg): 145 lb 1.6 oz - Data Labs: WBC 13.99 10^3/uL (3.29-11.43) H 11/02/24 03:13 RBC 3.10 10^6/uL (3.85-5.65) L 11/02/24 03:13 Hgb 8.90 g/dL (11.27-16.99) L 11/02/24 03:13 Hct 28.5 % (36-47) L 11/02/24 03:13 MCV 91.9 fl (85-98) 11/02/24 03:13 MCH 28.7 pg (27-33) 11/02/24 03:13 MCHC 31.2 g/dL (30-55) 11/02/24 03:13 RDW 15.2 % (12.1-15.1) H 11/02/24 03:13 Sodium 134 mmol/L (136-145) L 11/02/24 03:13 Potassium 3.4 mmol/L (3.5-5.1) L 11/02/24 03:13 Chloride 100 mmol/L (98-107) 11/02/24 03:13 Carbon Dioxide 22 mmol/L (22-29) 11/02/24 03:13 Anion Gap 15.4 (5-19) 11/02/24 03:13 BUN 31 mg/dL (6-20) H 11/02/24 03:13 Creatinine 2.8 mg/dL (0.5-0.9) H 11/02/24 03:13 GFR Calculation 18.2 mL/min (90-130) L 11/02/24 03:13 Treatment plan:: new consult Regimen:: POOR RENAL FX PULSE DOSE CHECK VANCOMYCIN LEVEL 11/03 0800 TO DETERMINE NEXT DOSE
[2024-11-02 11:31] LABS: Glucose Point of Care 98 mg/dL (70-110)
--- NOTE | 2024-11-02 13:22 | PM.CONSULT ---
Providers/Reason For Consult Consulting Physician/Specialty*: Yaya Salas DO/orthopedic surgery Reason for Consult*: Right knee swelling/septic prepatellar bursitis Requesting Physician: Dr. Gonzalez Attending Physician: Prince Perez MD Primary Care Provider: Monika Simpson MD History of Present Illness History of Present Illness Cherrie Solomon is a 44 year old female with a complex past medical history she is a uncontrolled diabetic was admitted on 11/01/2024 patient had leukocytosis and has history of psychosis. Patient has history of bilateral below the knee amputations. Orthopedics was consulted secondary to patient having a large fluid collection on the right knee. History reveals that patient has been noncompliant and has been walking on her below the knee amputation stumps. She currently has wound dressings on to the left BKA. Orthopedics was consulted for evaluation and treatment recommendations to patient's right knee. Review of Systems General: Reports: 10 or more systems reviewed and unremarkable except in HPI and below Medications/Allergies Home Medications ?Medication ?Instructions ?Recorded ?Confirmed ?Last Taken ?Type cyclobenzaprine 10 mg tablet 10 mg PO TID #30 tabs 06/03/24 11/02/24 Unknown Rx duloxetine 20 mg capsule,delayed 20 mg PO BID 30 days #60 caps 06/03/24 11/02/24 Unknown Rx release hydroxyzine pamoate 25 mg capsule 50 mg (2 x 25 mg) PO Q6H PRN 06/03/24 11/02/24 Unknown Rx Anxiety 30 days #120 caps pantoprazole 40 mg tablet,delayed 40 mg PO DAILY 30 days #30 tabs 06/03/24 11/02/24 Unknown Rx release paroxetine HCl 20 mg tablet 40 mg (2 x 20 mg) PO DAILY 30 days 06/03/24 11/02/24 Unknown Rx #60 tabs ropinirole 1 mg tablet 1 mg PO BEDTIME 30 days #30 tabs 06/03/24 11/02/24 Unknown Rx quetiapine 100 mg tablet 100 mg PO BEDTIME 09/13/24 11/02/24 Unknown History amlodipine 10 mg tablet 10 mg PO DAILY 11/01/24 11/01/24 Unknown History dicyclomine 10 mg capsule 10 mg PO QID 11/02/24 11/02/24 Unknown History Allergies Allergy/AdvReac Type Severity Reaction Status Date / Time morphine Allergy ALGY-Difficulty Verified 09/12/24 20:19 Breathing sulfamethoxazole (From Allergy ADR-Vomitin Verified 09/12/24 20:19 Bactrim) g trimethoprim (From Bactrim) Allergy ADR-Vomitin Verified 09/12/24 20:19 g Current Medications Generic Name Dose Route Start Last Admin Trade Name Freq PRN Reason Stop Dose Admin Acetaminophen 650 mg 11/01/24 01:52 11/02/24 02:31 Acetaminophen 325 Mg Tablet PO 650 mg Q4H PRN Administration MILD PAIN Amlodipine Besylate 10 mg 11/02/24 09:00 11/02/24 09:03 Amlodipine 10 Mg Tablet PO 10 mg DAILY DAWSON Administration Clonazepam 0.25 mg 11/01/24 20:00 11/02/24 09:02 Clonazepam 0.5 Mg Tablet PO 0.25 mg BID DAWSON Administration Clonidine HCl 0.1 mg 11/01/24 09:23 11/01/24 21:37 Clonidine 0.1 Mg Tablet PO 0.1 mg TID DAWSON Administration Hydroxyzine Pamoate 50 mg 11/01/24 01:52 11/02/24 09:02 Hydroxyzine 25 Mg Capsule PO 50 mg Q6H PRN Administration ANXIETY Insulin Human Lispro 0 unit 11/01/24 08:00 11/02/24 12:03 Insulin Lispro 100 Unit/1 Ml SUBCUT Not Given WM&BEDTIME [facility] Protocol Isosorbide Mononitrate 20 mg 11/02/24 09:00 11/02/24 09:02 Isosorbide Mononitrate 20 Mg Tablet PO 20 mg BID DAWSON Administration Lorazepam 2 mg 11/01/24 01:52 11/01/24 13:33 Lorazepam 2 Mg/Ml Inj 1 Ml IM 2 mg Q4H PRN Administration Severe Aggression Metoprolol Tartrate 25 mg 11/02/24 09:00 11/02/24 09:04 Metoprolol Tartrate 25 Mg Tablet PO 25 mg BID@0900,2100 DAWSON Administration Ondansetron HCl 4 mg 11/01/24 01:52 11/01/24 12:30 Ondansetron 4 Mg Tablet PO 4 mg Q6H PRN Administration NAUSEA AND VOMITING Paroxetine HCl 40 mg 11/01/24 12:45 11/02/24 09:02 Paroxetine 20 Mg Tablet PO 40 mg DAILY DAWSON Administration PFSH Acute PFSH: Medical History Acute kidney injury superimposed on CKD Type 1 diabetes mellitus with other skin ulcer Suicide attempt Urinary retention Septic prepatellar bursitis of left knee Chronic pain Hyperglycemia Anemia of chronic disease Insomnia GERD (gastroesophageal reflux disease) ALEJANDRO (generalized anxiety disorder) C. 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 CKD (chronic kidney disease) stage 2, GFR 60-89 ml/min baseline Cr is around 1.0 Diabetic foot ulcer s/p surgical intervention and eventual amputation Hyperlipidemia Coronary artery disease hx of stenting Diabetic gastroparesis Diabetes mellitus type 1 diagnosed age 15, history of peripheral neuropathy, gastroparesis and nephropathy Surgical History Hx of angioplasty H/O esophagogastroduodenoscopy (12/31/20) Bile reflux gastritis, grade B esophagitis Hx of cholecystectomy History of amputation of right forefoot Below-knee amputation of left lower extremity S/P percutaneous endoscopic gastrostomy (PEG) tube placement H/O exploratory laparotomy x 3 Previous section x 3 S/P coronary artery stent placement x 1 Family History Unknown Diabetes extensive, type II Other Congestive heart failure (CHF) Social History Smoking and tobacco/nicotine status: former use of tobacco/nicotine Quit status (tobacco/nicotine): has quit using Former quit date comment: 15 yrs ago Alcohol intake: former Former alcohol use details: 15 yrs ago Substance/Drug Use: current Substance/Drug use frequency: daily Household members: spouse Marital status: Current occupation: disabled Sexually active: Yes (1, ) Female Reproductive History: Spontaneous abortions: No Vitals/I&O/Wt Last Vital Signs Temp 98.5 F 11/02/24 11:00 Pulse 63 11/02/24 11:00 Resp 16 11/02/24 11:00 BP 102/58 11/02/24 11:00 Pulse Ox 97 11/02/24 11:00 O2 Del Method Room Air 11/02/24 11:00 11/01/24 11/02/24 11/02/24 22:59 06:59 14:59 Intake Total 250 / 250 Balance 250 / 250 Weight last 48 hrs Weight 145 lb 1.6 oz Weight 145 lb Weight 145 lb Physical Exam Narrative: Right knee examination: Examination the right knee demonstrates multiple previous incisions over the right knee as well as a below the knee amputation stump appreciated the right lower extremity. Patient's stump incision is completely healed no signs of infection. Patient does have a large softball sized fluctuant fluid accumulation in the prepatellar bursa region she is able to actively flex and extend the knee with no pain or discomfort but does have tenderness palpation and warmth and mild redness about the prepatellar bursa consistent with septic prepatellar bursitis. Left knee examination: Patient left knee examination does demonstrate previous left below the knee amputation stump with open wound and drainage. Inspection of the wound this has purulent appearing drainage as well as inspection as well as palpation of this wound probes directly down to the tibial bone with exposed tibial bone. Patient has mild erythema as well as swelling and palpable fluctuance at the distal aspect of the stump. Patient can actively flex and extend at the knee. The previous longitudinal incision noted at the anterior aspect of the knee. This is healed. Data 11/06/24 04:05 11/06/24 04:05 Other Labs: 11/03/2019 5 AM labs demonstrate hemoglobin 8.9, WBC 13.99 down trended from 20.45 on 11/01 CRP from 11/01/24 was 221 Micro: Microbiology 11/01/24 02:40 Gram Stain - Final Leg - Wound Wound Culture - Preliminary Group g streptococcus Xray Ortho: Radiologist's impression: CT/CT knee RT wo con* [id number] IMPRESSION: 1. Again seen is prepatellar fluid collection. This has shown interval increase in size. Infectious etiology can not be excluded. Direct clinical exam is advised 2. Incompletely imaged subcutaneous soft tissue density stranding changes involving the anterior arrington. Cellulitis can not be excluded. Direct clinical exam is advised. 3. Diffuse calcified atherosclerotic changes are seen. A&P Assessment and plan (1) Pain of amputation stump of left lower extremity: (2) Infection of amputation stump: (3) Infection of amputation stump, left lower extremity: (4) Prepatellar bursitis: (5) Septic prepatellar bursitis of right knee: Plan May have a diet today CT scan reviewed consistent with likely septic prepatellar bursal fluid collection, no intra-articular appearing involvement Recommend MRI discussed with the primary team of the left BKA stump as I feel this is likely patient's source for suspected sepsis as this is an open wound with exposed bone consistent with likely osteomyelitis of the left BKA stump Local wound care for left BKA stump N.p.o. at midnight Plan for likely surgical intervention for right knee irrigation debridement and left BKA stump revision versus possible [id number] amputation Labs reviewed MDM: Patient's a 44-year-old female with a complex history of diabetes as well as previous bilateral below the knee amputations. The right knee is healed up well however she has an open draining wound on the left knee with exposed bone of the left BKA stump consistent with likely infection/osteomyelitis. Reviewed to the CT for the right knee this is consistent with likely septic prepatellar bursitis. I feel this is due to patient talking with her as well as previous providers and nursing staff the patient does crawl and ambulate on her BKA stumps feel this is developed the septic prepatellar bursitis on the 1 side as well as the continued wound breakdown on the left. At this point in time she did have a septic presentation in which the orthopedics was consulted for possible evaluation of the right knee as the source I feel this is more likely the left given the open wound however the right on CT scan is concerning for an abscess as well. At this point time I talked about this in detail with the patient about her options moving forward as far as nonoperative's operative invention. At this point time she wishes to no longer have further dressing changes with the left below the knee stump and wishes just to have this removed and any infection excised. She does have previous history of psychosis as well as panic attacks however on my evaluation/talking with the patient she does under stand her diagnosis is what I have talked with her about as well as the reality and complexity of her situation and the possible risks if she with the possible surgeries moving forward could potentially continually have problems and further wound issues if she continues to walk on these and disregard my recommendation/restrictions. At this point in time we talked about the ins and outs procedure risk benefits complication alternatives of surgery. Risk of surge include not limited to make a better make it worse injury to nerves vessels or tendons, acute blood loss, infection, wound complications and breakdown, possible further surgery and amputations. Understanding risks with surgery patient elects proceed with surgical intervention. All questions have been answered at this time. Will go ahead and get her added on for the surgery schedule tomorrow pending optimization from the internal medicine team as well as after patient gets MRI of the left below the knee amputation stump to evaluate if there is a potential for revision of below the knee versus [id number] amputation. Patient understands agrees to current plan. Questions answered. Will be n.p.o. at midnight. PDMP PDMP Reviewed: Not Reviewed Coding Level of Care Code Acute Code for Chg Fwd Diagnoses Pain of amputation stump of left lower extremity T87.89; M79.605 Infection of amputation stump T87.40 Infection of amputation stump, left lower extremity T87.44 Prepatellar bursitis M70.40 Septic prepatellar bursitis of right knee M71.161 Time Spent (min) 55
--- NOTE | 2024-11-02 13:28 | W.PM.NPUPNS ---
Subjective NPU Subjective: 44-year-old white female currently on the crisis stabilization unit admitted with suicidal ideation. The patient had reported that her mood was better. She had reported significant anxiety but reports feeling calmer with the initiation of Klonopin with no reports of panic attacks. The patient had expressed concern about an infection and was awaiting surgical consult. She had remained compliant on the milieu while lying in bed and stated that she was amenable to her changes in her psychiatric medications. Mental Status Exam MSE Comments: This is an overweight white female in hospital scrubs with limited grooming and eye contact with notable below-knee amputation bilaterally lying in hospital bed. No abnormal involuntary motor movements were appreciated. She was?cooperative with exam in no acute distress.? Speech was normal in rate and normal in volume.? Mood described as okay. Affect was less restricted today. Thought process was linear and logical. Thought content: Patient denied suicidal ideation and denied homicidal ideation today. There was no evidence of delusional thinking. She denied auditory or visual hallucinations and did not appear to be responding to internal stimuli. Attention and concentration were limited and memory appeared more reliable but none were formally tested.? She is alert and oriented x3.? Insight, judgment and impulse control are all limited versus impaired. Vitals/I&O/Wt Last Vital Signs Temp 98.5 F 11/02/24 11:00 Pulse 63 11/02/24 11:00 Resp 16 11/02/24 11:00 BP 102/58 11/02/24 11:00 Pulse Ox 97 11/02/24 11:00 O2 Del Method Room Air 11/02/24 11:00 11/01/24 11/02/24 11/02/24 22:59 06:59 14:59 Intake Total 250 / 250 Balance 250 / 250 Weight last 48 hrs Weight 65.816 kg Weight 65.771 kg Weight 65.771 kg Data NPU 11/02/24 03:13 11/02/24 03:13 Micro: Microbiology 11/01/24 02:40 Gram Stain - Final Leg - Wound Wound Culture - Preliminary Group g streptococcus Microbiology 11/01/24 02:40 Leg - Wound Gram Stain - Final 11/01/24 02:40 Leg - Wound Wound Culture - Preliminary Group g streptococcus A&P Assessment and plan (1) Dysthymic disorder: (2) Suicidal ideation: (3) ALEJANDRO (generalized anxiety disorder): (4) Panic attacks: Plan 44 year old with multiple medical problems with history of depression, anxiety and borderline personality traits endorsing suicidal ideation with history of noncompliance with medications. Patient on CSU and appears better today. #1.? Engage patient in individual milieu and group therapy. #2?? Recommend sober living treatment at the highest level of care to which the patient is willing to commit #3??? Continue Klonopin .25mg bid,Continue seroquel 150mg at night, Continue cymbalta to 20mg daily with plan to taper and discontinue, continue Paxil as prescribed at 40mg daily with plan for increase up to 60 mg per day. #4?? TO-15 minute checks? #5?? Will attempt to gather collateral information PDMP PDMP Reviewed: Not Reviewed Involuntary Hold Information 96 Hour Hold: 96 Hour Involuntary Admission: No Attestations NPU Medical Necessity Statement*: Inpatient psychiatric hospitalization is medically necessary and deemed to be the clinically appropriate intervention once patient completes medical stay as she may require surgery for infection. Medications will be adjusted and initiated as indicated.? The patient?s likely length of stay on psychiatric unit is 4-6 days. ? Coding Level of Care Code Acute Code for [facility] Fwd Diagnoses Dysthymic disorder F34.1 Suicidal ideation R45.851 ALEJANDRO (generalized anxiety disorder) F41.1 Panic attacks F41.0
--- NOTE | 2024-11-02 13:30 | PM.CONSULT ---
Providers/Reason For Consult Consulting Physician/Specialty*: Wound Care Reason for Consult*: Chronic open wound to left stump Requesting Physician: Dr. Dahl Attending Physician: Prince Perez MD Primary Care Provider: Monika Simpson MD History of Present Illness History of Present Illness Cherrie Solomon is a 44 year old female with a past medical history that includes chronic kidney disease, type 1 diabetes, neuropathy, coronary artery disease, hypertension, depression, gastroparesis, sepsis, status post bilateral below-knee amputations, suicidal ideation panic attacks, and anxiety. She presented to the emergency room on October 31 for complaints of increasing pain with altered mental status and potential self-harm and harm to others. She was admitted to the psychiatric unit on a psychiatric hold. On November 01 she was transferred to the CSU for hypertension. She has a longstanding wound to her left BKA stump. She states her left leg was amputated in 2019, although she has had multiple surgeries after this. She crawls on her knees to navigate due to her wheelchair not fitting in some spaces in her house. She has been a patient at [facility] wound care, but is no longer following up there. She was last evaluated on June 24, [address] Eden. He recommended her being seen by a tertiary orthopedic surgeon for possible revision of his leg as he was not hopeful this wound would heal. Today she denies ever being evaluated by another orthopedic service. She was last referred to [facility] wound care on September 23 at time of discharge from her last admission and an appointment was made for September 29. Records show she was a no-show no call to this appointment. She is currently on vancomycin. Her WBC is 13.99 decreased from 20.45 on November 01. Her CRP on November 01 was 221. She denied any suicidal ideations during the visit and states that she is starting to feel hungry, which she has not been in the last week. She denies any fevers or chills. Dr. Salas from orthopedics has been consulted for concerns of an abscess on her right knee. She is currently NPO. Review of Systems Const: Reports: change in appetite; Denies: fever(s) or chills Skin/Breast: Reports: sores (left BKA stump) and other (amputation of bilateral lower legs) Psych: Denies: suicidal ideation Medications/Allergies Home Medications ?Medication ?Instructions ?Recorded ?Confirmed ?Last Taken ?Type cyclobenzaprine 10 mg tablet 10 mg PO TID #30 tabs 06/03/24 11/02/24 Unknown Rx duloxetine 20 mg capsule,delayed 20 mg PO BID 30 days #60 caps 06/03/24 11/02/24 Unknown Rx release hydroxyzine pamoate 25 mg capsule 50 mg (2 x 25 mg) PO Q6H PRN 06/03/24 11/02/24 Unknown Rx Anxiety 30 days #120 caps pantoprazole 40 mg tablet,delayed 40 mg PO DAILY 30 days #30 tabs 06/03/24 11/02/24 Unknown Rx release paroxetine HCl 20 mg tablet 40 mg (2 x 20 mg) PO DAILY 30 days 06/03/24 11/02/24 Unknown Rx #60 tabs ropinirole 1 mg tablet 1 mg PO BEDTIME 30 days #30 tabs 06/03/24 11/02/24 Unknown Rx quetiapine 100 mg tablet 100 mg PO BEDTIME 09/13/24 11/02/24 Unknown History amlodipine 10 mg tablet 10 mg PO DAILY 11/01/24 11/01/24 Unknown History dicyclomine 10 mg capsule 10 mg PO QID 11/02/24 11/02/24 Unknown History Allergies Allergy/AdvReac Type Severity Reaction Status Date / Time morphine Allergy ALGY-Difficulty Verified 09/12/24 20:19 Breathing sulfamethoxazole (From Allergy ADR-Vomitin Verified 09/12/24 20:19 Bactrim) g trimethoprim (From Bactrim) Allergy ADR-Vomitin Verified 09/12/24 20:19 g Current Medications Generic Name Dose Route Start Last Admin Trade Name Ana Cristina PRN Reason Stop Dose Admin Acetaminophen 650 mg 11/01/24 01:52 11/02/24 02:31 Acetaminophen 325 Mg Tablet PO 650 mg Q4H PRN Administration MILD PAIN Amlodipine Besylate 10 mg 11/02/24 09:00 11/02/24 09:03 Amlodipine 10 Mg Tablet PO 10 mg DAILY DAWSON Administration Clonazepam 0.25 mg 11/01/24 20:00 11/02/24 09:02 Clonazepam 0.5 Mg Tablet PO 0.25 mg BID DAWSON Administration Clonidine HCl 0.1 mg 11/01/24 09:23 11/01/24 21:37 Clonidine 0.1 Mg Tablet PO 0.1 mg TID DAWSON Administration Hydroxyzine Pamoate 50 mg 11/01/24 01:52 11/02/24 09:02 Hydroxyzine 25 Mg Capsule PO 50 mg Q6H PRN Administration ANXIETY Insulin Human Lispro 0 unit 11/01/24 08:00 11/02/24 12:03 Insulin Lispro 100 Unit/1 Ml SUBCUT Not Given WM&BEDTIME [facility] Protocol Isosorbide Mononitrate 20 mg 11/02/24 09:00 11/02/24 09:02 Isosorbide Mononitrate 20 Mg Tablet PO 20 mg BID DAWSON Administration Lorazepam 2 mg 11/01/24 01:52 11/01/24 13:33 Lorazepam 2 Mg/Ml Inj 1 Ml IM 2 mg Q4H PRN Administration Severe Aggression Metoprolol Tartrate 25 mg 11/02/24 09:00 11/02/24 09:04 Metoprolol Tartrate 25 Mg Tablet PO 25 mg BID@0900,2100 DAWSON Administration Ondansetron HCl 4 mg 11/01/24 01:52 11/01/24 12:30 Ondansetron 4 Mg Tablet PO 4 mg Q6H PRN Administration NAUSEA AND VOMITING Paroxetine HCl 40 mg 11/01/24 12:45 11/02/24 09:02 Paroxetine 20 Mg Tablet PO 40 mg DAILY DAWSON Administration PFSH Acute PFSH: Medical History (Updated 11/02/24 @ 13:39 by ARLIN Stewart) Type 1 diabetes mellitus with other skin ulcer Suicide attempt Urinary retention Septic prepatellar bursitis of left knee Chronic pain Hyperglycemia Anemia of chronic disease Insomnia GERD (gastroesophageal reflux disease) ALEJANDRO (generalized anxiety disorder) C. 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 CKD (chronic kidney disease) stage 2, GFR 60-89 ml/min baseline Cr is around 1.0 Diabetic foot ulcer s/p surgical intervention and eventual amputation Hyperlipidemia Coronary artery disease hx of stenting Diabetic gastroparesis Diabetes mellitus type 1 diagnosed age 15, history of peripheral neuropathy, gastroparesis and nephropathy Surgical History Hx of angioplasty H/O esophagogastroduodenoscopy (12/31/20) Bile reflux gastritis, grade B esophagitis Hx of cholecystectomy History of amputation of right forefoot Below-knee amputation of left lower extremity S/P percutaneous endoscopic gastrostomy (PEG) tube placement H/O exploratory laparotomy x 3 Previous section x 3 S/P coronary artery stent placement x 1 Family History Unknown Diabetes extensive, type II Other Congestive heart failure (CHF) Social History Smoking and tobacco/nicotine status: former use of tobacco/nicotine Quit status (tobacco/nicotine): has quit using Former quit date comment: 15 yrs ago Alcohol intake: former Former alcohol use details: 15 yrs ago Substance/Drug Use: current Substance/Drug use frequency: daily Household members: spouse Marital status: Current occupation: disabled Sexually active: Yes (1, ) Female Reproductive History: Spontaneous abortions: No Vitals/I&O/Wt Last Vital Signs Temp 98.5 F 11/02/24 11:00 Pulse 63 11/02/24 11:00 Resp 16 11/02/24 11:00 BP 102/58 11/02/24 11:00 Pulse Ox 97 11/02/24 11:00 O2 Del Method Room Air 11/02/24 11:00 11/01/24 11/02/24 11/02/24 22:59 06:59 14:59 Intake Total 250 / 250 Balance 250 / 250 Weight last 48 hrs Weight 65.816 kg Weight 65.771 kg Weight 65.771 kg Physical Exam Const: COMMON NORMALS: no acute distress, average body habitus, patient oriented x3 and alert EXAM LIMITATIONS: physical limitations (bilateral lower extremity amputations) GENERAL APPEARANCE: cooperative and comfortable ORIENTATION/CONSCIOUSNESS: Yes awake, Yes oriented to person, Yes oriented to place and Yes oriented to time HENMT: COMMON NORMALS: Normal external nose present HEAD & SCALP: normal to inspection NOSE: Normal external nose present Neck/C-Spine: GENERAL: Yes normal visual inspection Chest: CHEST: Yes Symmetrical chest wall rise Resp: COMMON NORMALS: normal respiratory effort and No use of accessory muscles EFFORT & INSPECTION: Yes able to speak in complete sentences Cardio: COMMON NORMALS: regular rate RATE: regular rate Extremity: GENERAL: Yes amputation (bilateral BKA) RIGHT LOWER EXTREMITY: Yes knee joint Right knee: Yes inspection (noticeable soft tissue swelling to anterior knee, no erythema noted) and Yes palpation (warm, tender) LEFT LOWER EXTREMITY: Yes lower leg (left BKA stump) Left lower leg: Yes inspection (noticeable soft tissue swelling to anterolateral stump, no erythema) and Yes palpation (lateral: warm, tender) Neuro: COMMON NORMALS: patient oriented x3 SENSORIUM/ORIENTATION: Yes alert, Yes oriented to person, Yes oriented to place and Yes oriented to time SPEECH: speech normal GAIT: Yes Unable to assess gait (bilateral BKA) Psych: COMMON NORMALS: cooperative, speech normal and denies suicidal ideation ATTITUDE: Yes calm ACTIVITY/MOTOR BEHAVIOR: Yes appropriate eye contact SPEECH: Yes normal speech Skin: WOUNDS: Yes wounds noted (see wound assessment) Data 11/02/24 03:13 11/02/24 03:13 Micro: Microbiology 11/01/24 02:40 Gram Stain - Final Leg - Wound Wound Culture - Preliminary Group g streptococcus A&P Assessment and plan (1) Type 1 diabetes mellitus with other skin ulcer: Plan Chronic open ulceration to distal left BKA stump. She was admitted in August and had a CT scan at that time which revealed osteomyelitis of the distal tibial stump. She was treated with oral antibiotics after discharge. Compliance is uncertain. Upon dressing removal, there is purulent drainage noted to the ABD pad. The open wound has a tunnel at 2o'clock measuring 6 cm up to the level of her skin. the distal tibia is palpable within her wound, although there is soft tissue coverage over this. She reports she has intermittently been packing the wound, but the packing does not stay well so most of the time her cleans it and covers it. There are concerns for refractory osteomyelitis of the distal tibia given the current condition of her wound. I have talked with Dr. Dahl regarding this, she is ordering a left lower extremity CT scan to evaluate for progressed osteomyelitis or any other infectious process. Dr. Salas from Orthopedics has been consulted on her right knee for concerns of an abscess. Dr. Dahl states she will also reach out to Dr. Josue to evaluate the left leg for any surgical interventions that may be indicated such as a revision or further amputation for definitive treatment of this chronic and ongoing open wound. The wound should be packed with 2 inch packing gauze to the tunnel at 2 o'clock, the remainder of the wound may be packed with woven gauze. Careful attention should be paid to the amount of gauze placed in the wound and removed to ensure all packing is removed at each dressing change. This should be covered with an ABD pad and secured with Kerlix rolled gauze. This should be changed twice daily. It will be imperative for Ms. Solomon to avoid pressure over this area. Nutrition will be especially important for wound healing. PDMP PDMP Reviewed: Not Reviewed Consult Attestations Time Spent in Patient Care: 16 - 35 minutes Coding Level of Care Code Acute Code for Chg Fwd Diagnoses Type 1 diabetes mellitus with other skin ulcer E10.622; L98.499 Wound Assessment Wound Assessment Wound Number 1 Amputation Site- Below Kn: Cluster Wound: No Descriptor: Distal Primary Etiology:: Diabetic Would/Ulcer of the Lower Extremity Length: (cm): 4.5 cm Width: (cm): 2.5 cm Depth: (cm): 2.5 cm Epithelialization:: None Tunneling:: Yes (6cm @ 2o'clock) Classification: Grade 3 (osteomyelitis confirmed by CT 09/12/24) Exudate Amount:: Medium Drainage Type: Purulent Foul Odor After Cleansing:: No Slough/Fibrin?: Yes Granulation Amount: Small (1-33%) Granulation Quality:: [place] Necrotic Amount:: Small (1-33%) Necrotic Type:: Adherent Slough Wound Orders Wound Number 1: left BKA stump Dressing change frequency: Twice Daily Wound Cleansing: Saline Primary Wound Care Dressing: saline moistened gauze (2inch packing gauze to tunneled area @2, woven gauze to remainder of wound) Secondary Wound Care Dressing: ABD pad, kerlix rolled gauze *avoid adhesive on skin Bathing/Showering/Hygiene: May shower with protection but do not get dressing wet.
--- NOTE | 2024-11-02 14:10 | MR_ITS ---
WS: [id number] MRI RIGHT KNEE NONCONTRAST TECHNIQUE: Axial PD, coronal PD fat sat, coronal PD, sagittal PD, and sagittal PD fat-sat images obtained. CLINICAL INFORMATION: osteo COMPARISON: 11/02/2024 FINDINGS: Prepatellar fluid collection with a thick capsule compatible with prepatellar bursitis. Associated debris within the distended prepatellar bursa. Findings may be infectious or inflammatory. Recommend correlation with infection and cellulitis like symptoms. No evidence of osteomyelitis. ACL and PCL appear intact. Horizontal tear involving the posterior horn medial meniscus extending to the articular surface. Normal bone marrow signal in the femoral condyles and tibial plateau. Normal fibula head. Distal quadriceps and patella tendons are intact Mild chondromalacia patella. Medial and lateral patellar retinaculum appear intact. MR/MR knee RT wo con* [id number] IMPRESSION: 1. Large prepatellar fluid collection compatible with prepatellar bursitis. Fi ndings may be infectious or inflammatory. Recommend clinical correlation for in fection and cellulitis. Associated surrounding soft tissue edema and skin thick ening. 2. No evidence of osteomyelitis. 3. Horizontal tear involving the posterior horn medial meniscus extending to t he articular surface. Outbridge grading: grade II: blister-like swelling/fraying of articular cartila ge extending to surface
--- NOTE | 2024-11-02 14:10 | MR_ITS ---
WS: [id number] MRI LEFT KNEE NONCONTRAST TECHNIQUE: Axial PD, coronal PD fat sat, coronal PD, sagittal PD, and sagittal PD fat-sat images obtained. CLINICAL INFORMATION: ostemoyelitis FINDINGS: Patchy T2 signal normality in the mid and distal residual femoral shaft with replacement of normal fatty T1 marrow signal compatible with osteomyelitis. Surrounding soft tissue thickening with fluid and edema involving the tibial stump patible with cellulitis. This extends to the edge of the [id number]. No definite visualized drainable fluid collections. Soft tissue edema and cellulitis extends to the level of the knee joint and patella worse involving the pretibial and prepatellar soft tissues. Normal bone marrow signal in the femoral condyles and patella. T1 fatty bone marrow signal appears preserved in the fibula although distal fibula not well evaluated ACL and PCL appear intact. Chronic intrasubstance signal abnormality involving the posterior horn medial meniscus. Lateral meniscus appears intact. Normal fibular head. Tiny suprapatellar effusion. Mild chondromalacia patella. MR/MR knee LT wo con* [id number] IMPRESSION: 1. Evidence of osteomyelitis in the mid and distal residual femoral shaft desc ribed above. 2. Large amount of surrounding soft tissue edema and cellulitis involving the tibial stump with diffuse edema although no definite visualized drainable fluid collections. This is at the edge of the [id number]. 3. Diffuse soft tissue edema extends into the pretibial and prepatellar soft t issues with prepatellar bursitis. 4. Normal bone marrow signal in the patella and femoral condyles. Outbridge grading: grade II: blister-like swelling/fraying of articular cartila ge extending to surface
[2024-11-02] MEDS: LORazepam 2 mg/mL INJ 1 mL IM (14:48)
[2024-11-02 17:01] LABS: Glucose Point of Care 211 mg/dL (70-110)
[2024-11-02] MEDS: insulin lispro 100 unit/1 mL SUBCUT (17:05)
--- NOTE | 2024-11-02 18:27 | PC.NURSE ---
Physician orders: Morphine 4mg IVP Q8h
--- NOTE | 2024-11-02 18:30 | PC.NURSE ---
Patient allergic to morphine. Nurse will report to physician
--- NOTE | 2024-11-02 18:39 | PC.NURSE ---
Physician orders: o.5mg dilaudid q8h
[2024-11-02] MEDS: HYDROmorphone 0.5 MG/0.5 ML INJ IVP (18:57)
[2024-11-02] MEDS: trazodone 50 mg Tablet PO (20:12)
[2024-11-02 20:23] LABS: Glucose Point of Care 73 mg/dL (70-110)
[2024-11-02] MEDS: OLANZapine 5 mg ODT PO (20:54)
[2024-11-02] MEDS: ondansetron 4 MG Tablet PO (20:54)
[2024-11-02] MEDS: diphenhydrAMINE 50 mg/mL SDV 1mL IM (21:13)
[2024-11-02] MEDS: HYDROmorphone 0.5 MG/0.5 ML INJ 1 MG IVP (21:33)
--- NOTE | 2024-11-02 21:43 | PC.NURSE ---
2053- Patient complaining of pain and had emesis episode. Patient unable to get diluadid at this time until 2AM. Patient willing to try tylenol. Gave tylenol, zofran, and PO zyprexa, see mar. Encourage patient to wait at least 45 minutes to see if tylenol will help if not this nurse will attempt to get stronger pain med. Gave patient heat pack for back and warm blanket. 2112- Patient getting out of bed, dressing on leg is off. Patient scratching at thighs causing bleeding and open wounds. Assisted patient back into bed with SHAKER PLATE OPERATOR help. Encouraged patient to try to use heating pad and this nurse will ask for meds. Patient then began to bang head on side rail and aggressively scratching at thighs. Patient attempting to get out of bed. This nurse gave B52 and security called. While this nurse was on phone with Dr. Gonzalez to ask for restraints patient swung at co-worker. Patient yelling let me go get your hands off me. Recieved orders for restraints. truck repair supervisor called as well as second security control assessor. Recieved order for Dr. Dahl to give 1 mg of dilaudid now once. Dr. Dahl also wanted to talk to patient. Explained that patient is very aggravated at the moment but will try to transfer her to patient. See MAR for dilaudid administration. 2150- Patient calm resting in bed. Responds when asked questions. Q15 vitals initated and restraints in place.
--- NOTE | 2024-11-02 22:40 | PC.NURSE ---
Attempted to call to update him on current patient situation.
[2024-11-03] VITALS (18 sets, daily range): BP systolic 106–182; BP diastolic 57–100; PULSE 66–98; RESP 9–24; TEMP 36.3–36.8; O2SAT 95–100
--- NOTE | 2024-11-03 00:44 | PC.NURSE ---
Patient woke up feeling nauseous. Patient did have one small emesis episode however patient was seen sticking finger down throat prior to emesis. Requesting additional antinausea medication since zofran is not available. Received orders from Dr. Gonzalez for compazine 5 mg iv once. Patient educated to try not to stick finger down throat to endorse emesis.
[2024-11-03] MEDS: prochlorperazine 10 mg/2 mL Inj 5 MG IVP (01:16)
[2024-11-03] MEDS: HYDROmorphone 0.5 MG/0.5 ML INJ IVP ×5 (01:17→21:53)
[2024-11-03 03:26] LABS: Glucose Point of Care 191 mg/dL (70-110)
[2024-11-03] MEDS: ondansetron 4 MG Tablet PO ×2 (03:27→13:36)
[2024-11-03] MEDS: hyDROXYzine 25 mg Capsule 50 MG PO (05:15)
[2024-11-03] MEDS: OLANZapine 5 mg ODT PO (05:16)
[2024-11-03] MEDS: HYDROmorphone 0.5 MG/0.5 ML INJ 1 MG IVP (05:26)
--- NOTE | 2024-11-03 05:31 | PC.NURSE ---
Addendum entered by Elvia Peace RN 11/03/24 05:37: Security and other staff assisting to keep patient from jumping out of bed. Patient educated multiple times to get back in bed for her safety. Original Note: This nurse came out of another patients room seeing OPERATIONS RESEARCH SCIENTIST and other nurse on floor going into this patients room. Patient is attempting to climb out of bed stating I need to take a cold shower!. When asked what wrong and why she needs to take a cold shower patient states i'm hurting. Patient explained to patient that she is putting more risk to damaging her wound to her left BKA by walking on it and getting it wet. She was educated by the wound care practioner she should not be walking on them nor getting them soaking wet. Per staff at bedside she attempted to swing and kick at staff multiple times. Security and housekeeper/custodian/laundry worker called. Dr. Gonzalez called to clarify if he would like another B52? Recieved orders to give once time dose 1mg dilaudid.
--- NOTE | 2024-11-03 07:31 | PC.OT ---
HOLD OT EVALUATION FOR NPU PATIENT REMAINS ON CSU
[2024-11-03 09:10] LABS: Basophils % 0.2 %; Eosinophils % 0.1 %; Lymphocytes # 0.8 10^3/uL (0.8-4.8); Lymphocytes % 5.9 %; Mean Corpuscular HGB Conc 32.3 g/dL (30-55); Mean Corpuscular Volume 89.9 fl (85-98); Mean Platelet Volume 8.6 fL (7.4-10.4); Monocytes # 0.5 10^3/uL (0.2-0.9); Monocytes % 3.5 %; Neutrophils % 89.5 %; Nucleated Red Blood Cells % 0 %; Platelet Count 448 10^3/cmm (157-399); Red Blood Count 3.45 10^6/uL (3.85-5.65); Red Cell Distribution Width 14.5 % (12.1-15.1); White Blood Count 13.64 10^3/uL (3.29-11.43)
[2024-11-03 09:17] LABS: Glucose Point of Care 189 mg/dL (70-110)
[2024-11-03 09:27] LABS: Blood Urea Nitrogen 38 mg/dL (6-20); Carbon Dioxide 23 mmol/L (22-29); Chloride 99 mmol/L (98-107); Glucose 194 mg/dL (65-115); Osmolality Calculated 296 mOsm/kg (285-295); Sodium 136 mmol/L (136-145)
[2024-11-03 09:30] LABS: Vancomycin Trough 10.5 ug/mL (10-15)
[2024-11-03] MEDS: PARoxetine 20 mg Tablet 40 MG PO (11:02)
[2024-11-03] MEDS: CLONazepam 0.5 mg Tablet 0.25 MG PO ×2 (11:02→18:08)
[2024-11-03] MEDS: metoprolol tartrate 25 mg Tablet PO ×2 (11:03→21:54)
[2024-11-03] MEDS: isosorbide mononitrate 20 mg Tablet PO ×2 (11:03→18:08)
[2024-11-03] MEDS: amlodipine 10 mg Tablet PO (11:03)
[2024-11-03] MEDS: VANCOMYCIN ADD-Vantage 1,000 MG in 0.9% NaCl ADD-Vantage 250 ML 250 MG IV (11:25)
--- NOTE | 2024-11-03 12:03 | P.NPUPN_ITS ---
Subjective NPU 2 Subjective: 44-year-old white female currently on th e crisis stabilization unit admitted with suicidal ideation. The patient was seen on the crisis unit. She had reported that she was continuing to feel depressed but reported not having any thoughts of hurting herself or others. She had reported no change in her anxiety overall. She had been compliant on the milieu. She had reported some difficulties with falling asleep secondary to pain. Mental Status Exam 2 MSE Comments: This is an overweight white female in hospital scrubs with limited grooming and eye contact with notable below-knee amputation bilaterally lying in hospital bed. No abnormal involuntary motor movements were appreciated. She was?cooperative with exam in no acute distress.? Speech was normal in rate and normal in volume.? Mood described as okay. Affect was restricted. Thought process was linear and logical. Thought content: Patient denied suicidal ideation and denied homicidal ideation today. There was no evidence of delusional thinking. She denied auditory or visual hallucinations and did not appear to be responding to internal stimuli. Attention and concentration were limited and memory appeared more reliable but none were formally tested.? She is alert and oriented x3.? Insight, judgment and impulse control are all limited versus impaired. Vitals/I&O/Wt Last Vital Signs Temp 98.3 F 11/03/24 11:00 Pulse 84 11/03/24 11:00 Resp 18 11/03/24 11:00 BP 128/90 11/03/24 11:00 Pulse Ox 95 11/03/24 11:00 O2 Del Method Room Air 11/03/24 11:00 11/02/24 11/03/24 11/03/24 22:59 06:59 14:59 Intake Total 60 / 310 Balance 60 / 310 Weight last 48 hrs Weight 65.816 kg Data NPU 11/03/24 08:34 11/03/24 08:34 Micro: Microbiology 11/01/24 02:40 Gram Stain - Final Leg - Wound Wound Culture - Final Group g streptococcus Microbiology 11/01/24 02:40 Leg - Wound Gram Stain - Final 11/01/24 02:40 Leg - Wound Wound Culture - Final Group g streptococcus A&P Assessment and plan (1) Dysthymic disorder: (2) Suicidal ideation: (3) ALEJANDRO (generalized anxiety disorder): (4) Panic attacks: Plan 44 year old with multiple medical problems with history of depression, anxiety and borderline personality traits endorsing suicidal ideation with history of noncompliance with medications. Patient on CSU and appears better today. #1.? Engage patient in individual milieu and group therapy. #2?? Recommend sober living treatment at the highest level of care to which the patient is willing to commit #3??? Continue Klonopin .25mg bid,Continue seroquel 150mg at night, D/c Cymbalta today. Continue Paxil as prescribed at 40mg daily with plan for increase up to 60 mg per day. #4?? TO-15 minute checks? #5?? Will attempt to gather collateral information PDMP PDMP Reviewed: Not Reviewed Involuntary Hold Information 2 96 Hour Hold: 96 Hour Involuntary Admission: No Attestations NPU 2 Medical Necessity Statement*: Patient will continue on med-surgical floor. Patient not likely needing return to psychiatric unit after completion of medical stay. Will follow while here. Coding Level [facility] Dysthymic disorder F34.1 Suicidal ideation R45.851 ALEJANDRO (generalized anxiety disorder) F41.1 Panic attacks F41.0
[2024-11-03 12:23] LABS: Glucose Point of Care 162 mg/dL (70-110)
[2024-11-03] MEDS: LORazepam 2 mg/mL INJ 1 mL IM (13:54)
--- NOTE | 2024-11-03 14:28 | PC.NURSE ---
pt had been calm and cooperative at beginning of shift.woke up at approx 1100 c/o pain in bilat bka's.crawled out of bed onto floor and crawled into shower room across holley.there was no way to redirect pt.pt took a 45 min shower.pain med given and pt settled down.
--- NOTE | 2024-11-03 14:32 | PC.NURSE ---
pt woke up in pain..crawled out of bed and onto floor mat at side of bed.rocking back and forth.also dry heaving.dr cantu notified.1 time dose dilaudid given iv and ativan for anxiety.
--- NOTE | 2024-11-03 15:07 | P.PN_ITS ---
Subjective 2 Subjective: This morning. N.p.o. since midnight plan for surgery later today. Appears comfortable in bed at this time. Denies any chest pain or shortness of breath. Creatinine 2.7 today. Vitals/I&O/Wt Last Vital Signs Temp 98.3 F 11/03/24 11:00 Pulse 84 11/03/24 11:00 Resp 18 11/03/24 11:00 BP 128/90 11/03/24 11:00 Pulse Ox 95 11/03/24 11:00 O2 Del Method Room Air 11/03/24 11:00 11/03/24 11/03/24 11/03/24 06:59 14:59 22:59 Intake Total 250 / 250 Balance 250 / 250 Weight last 48 hrs Weight 65.816 kg Physical Exam 2 Narrative: General: Alert oriented x 3. Sitting up in bed. HEENT: PERRLA, pupils bilaterally equal and reactive, Chest: Normal vesicular breath sounds, no added sounds, equal good air entry bilaterally CVS: S1-S2 regular, no gross murmurs. Abdomen: Soft, nontender, bowel sounds present Neuro: No focal deficits grossly Extremities: stumps covered with bandage at this time. Data 11/03/24 08:34 11/03/24 08:34 Micro: Microbiology 11/01/24 02:40 Gram Stain - Final Leg - Wound Wound Culture - Final Group g streptococcus A&P Assessment and plan (1) Hypertension: Off Cardene drip, discontinue clonidine which can cause increase the risk of rebound hypertension, will use isosorbide mononitrate along amlodipine and metoprolol Qualifiers: Hypertension type: unspecified Qualified Code(s): I10 - Essential (primary) hypertension (2) Leukocytosis: Patient present with significant leukocytosis She has a extensive history of wounds Repeat blood work ordered for this morning Obtain inflammatory markers Check urinalysis Start oral antibiotics while awaiting above results (3) Chronic kidney disease: Worsening kidney function noted, patient endorsing voiding urine, Monitor kidney function for now Qualifiers: Chronic kidney disease stage: unspecified stage Qualified Code(s): N 18.9 - Chronic kidney disease, unspecified (4) Psychosis: No acute decompensation (5) Knee swelling: Patient will need drainage of right knee fluid collection Will consult Dr. Salas orthopedics Patient already on antibiotics leukocytosis trending down, no active fever Plan DVT prophylaxis: Hold anticoagulating agent patient will need drainage of right knee 11/03/2024 Creatinine 2.7 today. Baseline 1.7-1.8. Patient does have an FIONA at this time. Etiology unknown however possibility of vancomycin induced? Vanc trough 10.5. Consult nephrology MRI bilateral lower extremity reviewed: Evidence of osteomyelitis. Orthopedic surgery consulted. Plan for amputation and debridement today. Please see Ortho note for details. Patient will require extensive wound care, IV antibiotics were at least 6 weeks going forward after surgery. Will refer to LTAC for possible transfer. Patient initially admitted with suicidal ideation. Will discuss with psychiatry regarding further plan. At this time she does not endorse suicidal ideation. Continue Dilaudid for pain. Continue Klonopin for anxiety. Revised cardiac risk index: Score 2 points, 10.1% risk for 30-day mortality. Placed on normal saline 75 cc/h. will check echo as part of pre-op clearance. Patient does have a history of coronary disease with history of stents and 2020 after LA, hypertension hyperlipidemia. She was supposed have a stress test scheduled in 2021 but I do not believe it ever got completed. Patient is not cleared for surgery yet PDMP PDMP Reviewed: Not Reviewed Attestations 2 Medical Necessity Statement*: Osteomyelitis left stump, will require amputation during hospitalization. Diagnoses Hypertension, unspecified type I10 Hypertension type: unspecified Leukocytosis D72.829 Chronic kidney disease N18.9 Chronic kidney disease stage: unspecified stage Psychosis F29 Knee swelling M25.469
--- NOTE | 2024-11-03 15:34 | XRR_ITS ---
PROCEDURE INFORMATION: Exam: XR Chest Exam date and time: 11/03/2024 3:03 PM Age: 44 years old Clinical indication: Pre-operative exam; Cardiovascular screening and respiratory screening exam; Additional info: Pre-op TECHNIQUE: Imaging protocol: Radiologic exam of the chest. Views: 1 view. COMPARISON: CR XR chest 1V portable [id number] 09/17/2024 12:17 PM FINDINGS: Lungs: Unremarkable. No consolidation. Pleural spaces: Unremarkable. No pleural effusion. No pneumothorax. Heart/Mediastinum: Mild cardiomegaly, stable from prior study. Bones/joints: Unremarkable. XR/XR chest 1V portable [id number] IMPRESSION: 1. No acute cardiopulmonary process. 2. Mild stable cardiomegaly.
--- NOTE | 2024-11-03 16:00 | P.PN_ITS ---
Subjective 2 Subjective: Patient seen and examined today. Ready to pursue surgical intervention. Spoke with anesthesia and primary team at this point time recommending cardiac clearance and workup prior to surgical intervention will cancel surgery today and plan to proceed once patient is cleared by primary cardiology and anesthesia to proceed. Patient understands agrees to current plan. Questions answered. Vitals/I&O/Wt Last Vital Signs Temp 97.8 F 11/07/24 20:02 Pulse 60 11/07/24 22:32 Resp 20 H 11/07/24 22:32 BP 141/81 11/07/24 22:30 Pulse Ox 93 11/07/24 22:32 O2 Del Method Room Air 11/07/24 18:30 11/07/24 11/07/24 11/07/24 06:59 14:59 22:59 Intake Total 37.189 / 3684.599 6681.631 / 1019.631 700 / 1719.631 Output Total 825 / 1475 200 / 200 1025 / 1225 Balance -787.811 / 66.053 819.631 / 819.631 -325 / 494.631 Weight last 48 hrs Weight 141 lb 14.4 oz Physical Exam 2 Narrative: Right knee examination: Examination the right knee demonstrates multiple previous incisions over the right knee as well as a below the knee amputation stump appreciated the right lower extremity. Patient's stump incision is completely healed no signs of infection. Patient does have a large softball sized fluctuant fluid accumulation in the prepatellar bursa region she is able to actively flex and extend the knee with no pain or discomfort but does have tenderness palpation and warmth and mild redness about the prepatellar bursa consistent with septic prepatellar bursitis. Left knee examination: Patient left knee examination does demonstrate previous left below the knee amputation stump with open wound and drainage. Inspection of the wound this has purulent appearing drainage as well as inspection as well as palpation of this wound probes directly down to the tibial bone with exposed tibial bone. Patient has mild erythema as well as swelling and palpable fluctuance at the distal aspect of the stump. Patient can actively flex and extend at the knee. The previous longitudinal incision noted at the anterior aspect of the knee. This is healed. Urinary Catheter Management: [place]: Cath Placed During This Visit: yes, but has since been removed by the nurse Reason for Continuing Indwelling Catheter: Accurate Measurement of Urinary Output in Critically Ill Patients Urinary Catheter Date of Insertion: 11/04/24 Urinary Catheter Time of Insertion: 16:00 Date Urinary Catheter Removed: 11/06/24 Time Urinary Catheter Discontinued: 14:00 Data 11/07/24 04:24 11/07/24 04:24 Other Labs: AM labs 11/03/2024 listed below hemoglobin 10 WBC 13.6, creatinine 2.7, sodium 136 Micro: Microbiology 11/05/24 17:28 Gram Stain - Final Knee - Left Anaerobic Culture - Preliminary Abscess Culture - Preliminary 11/05/24 17:02 Gram Stain - Final Knee - Right Anaerobic Culture - Preliminary Abscess Culture - Preliminary 11/06/24 04:05 Blood Culture - Preliminary Blood NEGATIVE TO DATE 11/06/24 04:00 Blood Culture - Preliminary Blood NEGATIVE TO DATE A&P Assessment and plan (1) Pain of amputation stump of left lower extremity: (2) Infection of amputation stump: (3) Infection of amputation stump, left lower extremity: (4) Septic prepatellar bursitis of right knee: (5) Prepatellar bursitis: (6) Bursitis due to bacterial infection: Plan N.p.o. since midnight Can have diet today No orthopedic surgical intervention as per primary team patient requiring cardiac workup and optimization prior to surgical intervention Orthopedics will continue to follow until patient's optimized for surgical intervention. N.p.o. at midnight just in case able to perform surgery tomorrow PDMP PDMP Reviewed: Not Reviewed Attestations 2 Medical Necessity Statement*: Osteomyelitis left stump, will require amputation during hospitalization. Coding Level of Care Code Acute Code for [facility] Diagnoses Pain of amputation stump of left lower extremity T87.89; M79.605 Infection of amputation stump T87.40 Infection of amputation stump, left lower extremity T87.44 Septic prepatellar bursitis of right knee M71.161 Prepatellar bursitis M70.40 Bursitis due to bacterial infection M71.10; B96.89 Time Spent (min) 15
--- NOTE | 2024-11-03 16:00 | PM.CONSULT ---
Providers/Reason For Consult Consulting Physician/Specialty*: иван mccain md/ telenephrology Reason for Consult*: FIONA on CKD Requesting Physician: Dr Jany Dahl Attending Physician: Prince Perez MD Primary Care Provider: Monika Simpson MD History of Present Illness History of Present Illness Cherrie Solomon is a 44 year old female who was admitted on November 01, 2024 with leg pain suicidal thoughts. The patient has known diabetes with peripheral vascular disease status post bilateral BKA's known GERD CAD diabetic neuropathy. Patient was admitted with a stump infection. She received vancomycin. She had significant hypertension originally requiring Cardene drip and changed to amlodipine metoprolol and Imdur. From a renal perspective patient has known CKD she is seen outpatient nephrology. Her creatinine has been relatively abnormal since 2021 when she developed acute kidney injury creatinine going from 0.7 mg to 1.4 mg/dL. And then in July 2022 her creatinine normalized to 0.9 mg/dL. As of November 2023 creatinine went up to 1.8 mg/dL, and her creatinine was as low as 1.6 mg/dL as of September 23, 2024. On presentation on October 31 her creatinine was 1.9 mg/dL by November 02 creatinine went up to 2.8 mg/dL and she remained stable at 2.7 mg/dL and renal is asked to see the patient. Please note the patient blood pressure has improved from 160/92 120s/130/80. Review of Systems Narrative: Weak poor appetite nausea poor vision chest pain no shortness of breath no abdominal pain difficulty urinating positive leg pains. Positive fevers. Patient has pain med dependent at home. Patient denies using NSAIDs for a while. Medications/Allergies Home Medications ?Medication ?Instructions ?Recorded ?Confirmed ?Last Taken ?Type cyclobenzaprine 10 mg tablet 10 mg PO TID #30 tabs 06/03/24 11/02/24 Unknown Rx duloxetine 20 mg capsule,delayed 20 mg PO BID 30 days #60 caps 06/03/24 11/02/24 Unknown Rx release hydroxyzine pamoate 25 mg capsule 50 mg (2 x 25 mg) PO Q6H PRN 06/03/24 11/02/24 Unknown Rx Anxiety 30 days #120 caps pantoprazole 40 mg tablet,delayed 40 mg PO DAILY 30 days #30 tabs 06/03/24 11/02/24 Unknown Rx release paroxetine HCl 20 mg tablet 40 mg (2 x 20 mg) PO DAILY 30 days 06/03/24 11/02/24 Unknown Rx #60 tabs ropinirole 1 mg tablet 1 mg PO BEDTIME 30 days #30 tabs 06/03/24 11/02/24 Unknown Rx quetiapine 100 mg tablet 100 mg PO BEDTIME 09/13/24 11/02/24 Unknown History amlodipine 10 mg tablet 10 mg PO DAILY 11/01/24 11/01/24 Unknown History dicyclomine 10 mg capsule 10 mg PO QID 11/02/24 11/02/24 Unknown History Allergies Allergy/AdvReac Type Severity Reaction Status Date / Time morphine Allergy ALGY-Difficulty Verified 09/12/24 20:19 Breathing sulfamethoxazole (From Allergy ADR-Vomitin Verified 09/12/24 20:19 Bactrim) g trimethoprim (From Bactrim) Allergy ADR-Vomitin Verified 09/12/24 20:19 g Current Medications Generic Name Dose Route Start [facility] Reason Stop Dose Admin Amlodipine Besylate 10 mg 11/02/24 09:00 11/03/24 11:03 Amlodipine 10 Mg Tablet PO 10 mg DAILY DAWSON Administration Clonazepam 0.25 mg 11/01/24 20:00 11/03/24 11:02 Clonazepam 0.5 Mg Tablet PO 0.25 mg BID DAWSON Administration Hydromorphone HCl 0.5 mg 11/02/24 21:34 11/03/24 11:04 Hydromorphone 0.5 Mg/0.5 Ml Inj IVP 0.5 mg Q6H PRN Administration SEVERE PAIN Insulin Human Lispro 0 unit 11/01/24 08:00 11/03/24 12:33 Insulin Lispro 100 Unit/1 Ml SUBCUT Not Given WM&BEDTIME DAWSON Protocol Isosorbide Mononitrate 20 mg 11/02/24 09:00 11/03/24 11:03 Isosorbide Mononitrate 20 Mg Tablet PO 20 mg BID DAWSON Administration Metoprolol Tartrate 25 mg 11/02/24 09:00 11/03/24 11:03 Metoprolol Tartrate 25 Mg Tablet PO 25 mg BID@0900,2100 DAWSON Administration Olanzapine 5 mg 11/01/24 01:52 11/03/24 05:16 Olanzapine 5 Mg Odt PO 5 mg Q4H PRN Administration Agitation/Psychosis Ondansetron HCl 4 mg 11/01/24 01:52 11/03/24 13:36 Ondansetron 4 Mg Tablet PO 4 mg Q6H PRN Administration NAUSEA AND VOMITING Paroxetine HCl 40 mg 11/01/24 12:45 11/03/24 11:02 Paroxetine 20 Mg Tablet PO 40 mg DAILY DAWSON Administration Trazodone HCl 50 mg 11/01/24 01:52 11/02/24 20:12 Trazodone 50 Mg Tablet PO 50 mg BEDTIME PRN Administration SLEEP PFSH Acute PFSH: Medical History (Updated 11/03/24 @ 16:09 by Иван Mccain MD) Acute kidney injury superimposed on CKD Type 1 diabetes mellitus with other skin ulcer Suicide attempt Urinary retention Septic prepatellar bursitis of left knee Chronic pain Hyperglycemia Anemia of chronic disease Insomnia GERD (gastroesophageal reflux disease) ALEJANDRO (generalized anxiety disorder) C. 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 CKD (chronic kidney disease) stage 2, GFR 60-89 ml/min baseline Cr is around 1.0 Diabetic foot ulcer s/p surgical intervention and eventual amputation Hyperlipidemia Coronary artery disease hx of stenting Diabetic gastroparesis Diabetes mellitus type 1 diagnosed age 15, history of peripheral neuropathy, gastroparesis and nephropathy Surgical History Hx of angioplasty H/O esophagogastroduodenoscopy (12/31/20) Bile reflux gastritis, grade B esophagitis Hx of cholecystectomy History of amputation of right forefoot Below-knee amputation of left lower extremity S/P percutaneous endoscopic gastrostomy (PEG) tube placement H/O exploratory laparotomy x 3 Previous section x 3 S/P coronary artery stent placement x 1 Family History Unknown Diabetes extensive, type II Other Congestive heart failure (CHF) Social History Smoking and tobacco/nicotine status: former use of tobacco/nicotine Quit status (tobacco/nicotine): has quit using Former quit date comment: 15 yrs ago Alcohol intake: former Former alcohol use details: 15 yrs ago Substance/Drug Use: current Substance/Drug use frequency: daily Household members: spouse Marital status: Current occupation: disabled Sexually active: Yes (1, ) Female Reproductive History: Spontaneous abortions: No Vitals/I&O/Wt Last Vital Signs Temp 98.3 F 11/03/24 11:00 Pulse 84 11/03/24 11:00 Resp 18 11/03/24 11:00 BP 128/90 11/03/24 11:00 Pulse Ox 95 11/03/24 11:00 O2 Del Method Room Air 11/03/24 11:00 11/03/24 11/03/24 11/03/24 06:59 14:59 22:59 Intake Total 250 / 250 Balance 250 / 250 Weight last 48 hrs Weight 65.816 kg Physical Exam Narrative: Vital signs noted. Comfortable sitting up in a chair no apparent distress. HEENT normocephalic atraumatic. Neck is supple no JVP. Lungs are clear to auscultation. Heart is regular positive S1-S2. Abdomen is soft nontender nondistended positive bowel sounds. Extremities bilateral knee tenderness and bandages. Neuro awake alert oriented x 3 with neuropathy Data 11/03/24 08:34 11/03/24 08:34 Micro: Microbiology 11/01/24 02:40 Gram Stain - Final Leg - Wound Wound Culture - Final Group g streptococcus A&P Assessment and plan (1) Acute kidney injury superimposed on CKD: 44-year-old lady with IDDM, peripheral vascular disease status post bilateral BKA's here with stump infection. 1. Patient has CKD baseline creatinine approximately 1.5 mg/dL likely due to diabetes. 2. Acute kidney injury: Urinalysis reviewed has 4+ protein. 1+ blood. Patient has had 3+ protein in her urine for over 2 years. Currently her urinalysis also has significant granular casts can be consistent with ATN. Will check urine electrolytes will check urine protein creatinine ratio and urine albumin creatinine ratio. Will check renal ultrasound. Will check CPK. Will check complements. Agree with giving IV fluids. Avoid NSAIDs. Differential diagnosis can be ATN from dropping of blood pressure. Or can be interstitial nephritis though she does not have a significant eosinophilia. can be an infection related GN Will rule out rhabdomyolysis. Can be prerenal azotemia agree with sending electrolytes will give IV fluids. Monitor vancomycin level keep trough under 19. The patient was seen and examined using audiovisual equipment with the aid of a nurse. The patient consented to telehealth. Plan See above. PDMP PDMP Reviewed: Not Reviewed Consult Attestations Medical Necessity Statement: Acute on chronic renal failure infected BKA stump. Diabetes. Time Spent in Patient Care: Greater than 35 minutes (>than 50% of time spent in counselling and/or direct pt care on unit). Coding Level of Care Code Acute Code for [facility] Diagnoses Acute kidney injury superimposed on CKD N17.9; N18.9
--- NOTE | 2024-11-03 16:15 | US_ITS ---
WS: [id number] RENAL ULTRASOUND HISTORY: adriana COMPARISON: Renal ultrasound 01/12/2021 TECHNIQUE: 2-D and color Doppler imaging of the kidney submitted. Right kidney: 9.4 cm x 5.1 cm x 5.0 cm. Cortex: Poorly visualized. Significant change in the RIGHT kidney since the prior study from 01/12/2021. There is diffuse increased echogenicity throughout the entire kidney. Poor corticomedullary differentiation. There is also mild renal atrophy. Kidney sizes decreased from 11.6 to 9.4 cm. There is no obstruction. Left kidney: 9.0 cm x 3.9 cm x 4.1 cm. Cortex: 0.7 cm Low normal size kidney with cortical thinning. No hydronephrosis. Marked increased echogenicity with poor corticomedullary differentiation. Aorta: Normal. Urinary Bladder: Normal distention. US/US renal BI* [id number] IMPRESSION: 1. Significant change in appearance of the kidneys since the prior study. 2. Interval development of changes associated with chronic medical renal disea se. Most significant changes within the RIGHT kidney. 3. No hydronephrosis. 4. No mass.
--- NOTE | 2024-11-03 16:17 | USCV_ITS ---
Cherrie Solomon Age: 44 Gender: F : 1980 Exam Date: 11/03/2024 16:36 Ordering Phys: Mercedez Dahl MD Technologist: SHELLEY [place] [facility] [place]: CAD BP: / HR: 67 Rhythm: Sinus Technical Quality: Adequate MEASUREMENTS (Male / Female) Normal Values 2D ECHO LV Diastolic Diameter PLAX 4.4 cm 4.2 - 5.9 / 3.9 - 5.3 cm IVS Diastolic Thickness 1.1 cm 0.6 - 1.0 / 0.6 - 0.9 cm IVS Systolic Thickness 1.5 cm LVPW Diastolic Thickness 1.1 cm 0.6 - 1.0 / 0.6 - 0.9 cm LVPW Systolic Thickness 1.9 cm LVOT Diameter 2.0 cm LV Ejection Fraction 2D Teich 69.9 % LV Ejection Fraction MOD 4C 52.7 % LV Ejection Fraction MOD 2C 52.2 % LV Ejection Fraction 2C AL 59.1 % LA Diameter 2.4 cm RA Systolic Volume 4C AL 19.0 ml RA Systolic Volume 4C MOD 18.3 ml LA Sys Volume AL 36.2 cm cubed Aorta at Sinotubular Diameter 2.2 cm IVC Diameter 1.8 cm M-MODE LA Ao Ratio MM 1.1 AV Cusp Separation MM 1.1 cm DOPPLER AV Peak Velocity 162.0 cm/s LVOT Peak Velocity 94.0 cm/s AV Area Cont Eq vti 1.9 cm squared AV Area Cont Eq pk 1.8 cm squared MV Peak Velocity 101.0 cm/s MV Area PHT 3.4 cm squared Mitral E to A Ratio 1.1 TR Peak Velocity 140.0 cm/s TR Peak Gradient 7.8 mmHg TV Peak E Velocity 63.0 cm/s PV Peak Velocity 88.0 cm/s FINDINGS Left Ventricle Normal LV size with a borderline low ejection fraction of 52%. Moderate hypokinesia of the basal inferior wall segment. Right Ventricle The right ventricle is normal in size and function. Right Atrium The right atrium is normal in size. Left Atrium The left atrium is normal in size. Mitral Valve Thickened mitral valve. Moderate mitral annular calcification. Aortic Valve No gross abnormalities noted Tricuspid Valve No gross abnormalities noted Pulmonic Valve Pulmonic valve not well visualized. Pericardium No pericardial effusion. Aorta Normal aortic annulus size. IVC Normal inferior vena cava. CONCLUSIONS Normal LV size with a borderline low ejection fraction of 52%. Moderate hypokinesia of the basal inferior wall segment. Thickened mitral valve. Moderate mitral annular calcification. No gross valvular abnormalities noted. There is no pericardial effusion. No similar previous studies are available for comparison. Dr Joseluis Tracy MD [facility] (Electronically Signed) Final Date: 04 November 2024 01:08 S
[2024-11-03 17:26] LABS: Glucose Point of Care 130 mg/dL (70-110)
--- NOTE | 2024-11-03 17:41 | ECG_ITS ---
[facility] 2024[facility]03 Pat Name: Cherrie Solomon Department: Room: 112 Gender: Female Quality Assurance Assistant: : 1980 Requested By: Mercedez Dahl Order Number: [id number] Jeff MD: Joseluis Tracy M.D. Measurements Intervals Bricelyn Rate: 70 P: 23 GA: 144 QRS: 8 QRSD: 86 T: 83 QT: 425 QTc: 460 Interpretive Statements SINUS RHYTHM NONSPECIFIC T-WAVE ABNORMALITY Compared to ECG 09/19/2024 04:14:12 T-wave abnormality now present Electronically Signed On 11-03-2024 19:15:23 CDT by Joseluis Tracy M.D. [email or web address]
[2024-11-03] MEDS: sodium chloride 0.9% 1,000 ML 75 ML IV (18:09)
--- NOTE | 2024-11-03 18:57 | PC.NURSE ---
pt had been resting quietly in bed with eyes closed,when suddenly she woke up and began to crawl out of bed to take a shower ...pt very adamant about this.insists she wants a shower NOW.a male stock taker on case at the time..and pt about to get transferred to med/surg.after much discussion..pt crawled out of bed and sat on floor.pt assured that once she is transferred and female stock taker on her case for nightshift..she can indeed..take a shower.
[2024-11-03 18:59] LABS: Creatine Phosphokinase 115 U/L (26-192)
[2024-11-03 21:00] LABS: Complement C3 154 mg/dL (90-180)
[2024-11-03 21:03] LABS: Hepatitis C Virus Antibody Non-Reactive (Nonreactive)
[2024-11-03] MEDS: trazodone 50 mg Tablet PO (21:54)
[2024-11-03 22:25] LABS: Glucose Point of Care 174 mg/dL (70-110)
[2024-11-04] VITALS (78 sets, daily range): BP systolic 100–171; BP diastolic 57–117; PULSE 53–86; RESP 12–31; TEMP 36.4–36.6; O2SAT 94–99
[2024-11-04] MEDS: HYDROmorphone 0.5 MG/0.5 ML INJ IVP ×5 (01:08→22:16)
[2024-11-04] MEDS: LORazepam 2 mg/mL INJ 1 mL IVP (01:20)
[2024-11-04] MEDS: OLANZapine 10 mg VIAL IM (01:20)
--- NOTE | 2024-11-04 02:40 | PC.NURSE ---
Nurse Face to Face This RN was called to bedside at approximately 0100 due to pt displaying self harming behavior and not following directions. Upon arriving to room, pt was laying in the floor, face down, continuously banging head on floor. Staff was standing at pts side trying to stop pts head from making contact with floor. This RN verbally directed pt to stop harming herself and return to the bed. Pt not willing to follow verbal command. This RN instructed staff to return pt to bed. Nursing staff x 4 and security x 1 to lift pt back to bed. Pt continuously tried to crawl back to the floor. Pt educated numerous times that she can not stay on floor due to her unwillingness to stop banging her head on the floor tiles. Pt striking and kicking at staff. Physician notified and 1x order of pain medication provided, pt calm for approximately 15 minutes. Pt stated she wanted more medication and began trying to return to floor. Pt again educated that she was not allowed to return to floor if her intention was to harm herself. Pt unwilling to follow command at any point. PRN agitation medication administered. Pt yelling at staff. Pt eventually agreed to no longer try to harm herself. Pt then directed to side of bed with safety fall mat. Pt again unwilling to follow direction. Pt began swinging at staff and kicking. Pt placed in violent restraints at 0130.
--- NOTE | 2024-11-04 02:52 | PC.NURSE ---
Approximately 00:45, patient crawled out of bed onto the floor and began hitting her head against the wall repetitively. I attempted to stop patient from doing this by placing my hand between the wall and the patient's head. Patient then began banging her head on the floor. This nurse called for help. Multiple staff members arrived, including charhouse worker and security. Multiple staff members attempted to calm and redirect patient. Patient was moved off the floor into the bed for her safety. Patient attempted to get back on the floor. When asking patient if she is going to hit her head again, she states just let me back on the floor. Patient also stated you don't understand, the pain is so bad. I called Dr. Gonzalez and received an order for Dilaudid x1. This was administered at 01:08. After administration, patient still attempting to get on floor and attempting to kick and hit staff. I called Dr. Gonzalez and received an order for Ativan x1 and Zyprexa x1. These were administered at 01:20. Patient wanting to get off side of bed on the side by the wall. Patient was offered assistance to sit on the floor on the side of the bed that did not have a wall. Multiple attempts made by staff to accommodate patient's requests without risking her safety by letting her by the wall. Patient refusing and wanting only to sit on the floor by the wall. Staff did not allow this, as patient had been hitting her head against the wall. Patient refused to comply or follow any directions. Patient still attempting to kick and hit staff. Patient placed in soft wrist restraints at 01:30. Restraint to right wrist removed at 01:50. Restraint to left wrist removed at 2:23. Patient alert and oriented throughout. See vital signs.
[2024-11-04] MEDS: HYDROmorphone 0.5 MG/0.5 ML INJ (04:16)
[2024-11-04] MEDS: LORazepam 2 mg/mL INJ 1 mL (04:16)
--- NOTE | 2024-11-04 04:19 | PC.NURSE ---
This RN called back to bedside due to pt behavior. Upon entering room, pt in bed with multiple staff members at bedside. Physician called for further orders regarding pts combative, self harming behavior. 1 mg dilaudid and 2 mg ativan ordered to ensure safe transport to ICU.
--- NOTE | 2024-11-04 04:38 | PC.NURSE ---
Approximately 4 AM, PSA called out for help. Multiple staff members came in room to help. Patient attempting to go toward wall. Offered patient to get on floor on the other side of the bed, not by the wall. Patient refuses this, stating she wants to be by the wall. Patient informed that she cannot be by the wall for her safety. Patient became combative toward staff. supervisor solder making and security called to room. Patient given PRN Dilaudid. Dr. Gonzalez also ordered additional one time dose of Dilaudid and one time dose of Ativan and ordered to transfer patient to ICU. Report given to Ananya via phone and patient transferred to ICU via wheelchair.
--- NOTE | 2024-11-04 04:47 | PC.NURSE ---
0426 Received patient from medical floor in wheel chair with bilateral wrist restraints on wrists but not attached to anything, accompanied by multiple staff and security due to assaultive behavior to staff and self harming attempts in other department. Patient given choice of floor mat or bed as staff instructed this nurse that patient will throw self out of bed and hit head on rails/ floor etcetera. Patient opted for floor mat- placed self on floor from wheelchair. reports pain in stump recently medicated by previous nurse. Allowed this nurse to get vitals signs and place cardiac monitoring on her at this time, but has been non complaint in past for this. iv not infusing at this time.
[2024-11-04 05:09] LABS: Basophils % 0.4 %; Eosinophils % 0.5 %; Hematocrit 28.1 % (36-47); Lymphocytes # 1.1 10^3/uL (0.8-4.8); Lymphocytes % 13.1 %; Mean Corpuscular HGB Conc 31.3 g/dL (30-55); Mean Corpuscular Hemoglobin 28.4 pg (27-33); Mean Corpuscular Volume 90.6 fl (85-98); Mean Platelet Volume 8.4 fL (7.4-10.4); Monocytes # 0.4 10^3/uL (0.2-0.9); Monocytes % 4.9 %; Neutrophils % 80.5 %; Nucleated Red Blood Cells % 0 %; Platelet Count 456 10^3/cmm (157-399); Red Cell Distribution Width 14.5 % (12.1-15.1); White Blood Count 8.32 10^3/uL (3.29-11.43)
[2024-11-04 05:39] LABS: Alanine Aminotransferase < 5 U/L (0-33); Albumin Level 3.3 g/dL (3.5-5.2); Alkaline Phosphatase 200 U/L (35-105); Anion Gap 18.6 (5-19); Aspartate Amino Transferase 10 U/L (0-32); Blood Urea Nitrogen 40 mg/dL (6-20); Carbon Dioxide 19 mmol/L (22-29); Chloride 103 mmol/L (98-107); Globulin 3.8 g/dL (1.3-4.6); Glomerular Filtration Rate 16.2 mL/min (90-130); Glucose 145 mg/dL (65-115); Iron 35 ug/dL (37-145); Magnesium 2.2 mg/dL (1.7-2.3); Osmolality Calculated 296 mOsm/kg (285-295); Percent Saturation 19.4 % (20-50); Phosphorus 3.9 mg/dL (2.5-4.5); Potassium 3.6 mmol/L (3.5-5.1); Sodium 137 mmol/L (136-145); Total Bilirubin 0.2 mg/dL (0.15-1.2); Total Iron Binding Capacity 180 mcg/dl; Total Protein 7.1 g/dL (6.6-8.7); Unsaturated Iron Binding 145 ug/dL (112-347)
[2024-11-04 05:40] LABS: Calcium 8.9 mg/dL (8.5-10.5)
[2024-11-04] MEDS: dexmedeTOMIDine 0.9 % NaCL 400 MCG/100 ML PREMIX IV (05:42)
[2024-11-04] MEDS: sodium chloride 0.9% 1,000 ML 75 ML IV (05:43)
[2024-11-04 05:45] LABS: Parathyroid Hormone 120.6 pg/mL (15-65)
[2024-11-04 05:53] LABS: Ferritin 1385 ng/mL (15-150)
[2024-11-04 08:37] LABS: Glucose Point of Care 113 mg/dL (70-110)
[2024-11-04] MEDS: CLONazepam 0.5 mg Tablet 0.25 MG PO ×2 (09:08→18:29)
[2024-11-04] MEDS: PARoxetine 20 mg Tablet 40 MG PO (09:08)
--- NOTE | 2024-11-04 10:30 | PM.PN ---
Subjective Subjective: The patient is NPO. The patient has bilateral BKA pain. The patient has nausea but is hungry and thirsty. Patient is ICU for close monitoring. No shortness of breath no chest pain. Rest review of systems has not changed overnight. Medications: Reviewed: Yes Medication Review Details: Current Medications Amlodipine Besylate (Amlodipine 10 Mg Tablet) 5 mg PO DAILY [facility] Last Admin: 11/04/24 09:03 Dose: Not Given Benztropine Mesylate (Benztropine 1 Mg Tablet) 1 mg PO BID PRN PRN Reason: Mild Extrapyramidal symptoms Camphor/Menthol/Phenol (Blistex Lip Oint 7 Gm Tube) 1 applic TOPICAL Q1H PRN PRN Reason: DRYNESS Clonazepam (Clonazepam 0.5 Mg Tablet) 0.25 mg PO BID [facility] Last Admin: 11/04/24 09:08 Dose: 0.25 mg Diphenhydramine HCl (Diphenhydramine 50 Mg/Ml Sdv 1ml) 50 mg IM ONCE PRN PRN Reason: Severe Extrapyramidal Symptoms Glucagon (Glucagon 1 Mg/Ml Kit 1 Ml) 1 mg IM ONCE PRN; Protocol PRN Reason: Adult Acute Hypoglycemia Nursing Prot. Hydralazine HCl (Hydralazine 20 Mg/Ml Inj 1 Ml) 10 mg IVP Q4H PRN PRN Reason: SBP>180mmHg or DBP>110mmHG Hydromorphone HCl (Hydromorphone 0.5 Mg/0.5 Ml Inj) 0.5 mg IVP Q6H PRN PRN Reason: SEVERE PAIN Last Admin: 11/04/24 09:28 Dose: 0.5 mg Dextrose (D5w) 500 mls @ 0 mls/hr IV ONCE PRN; Protocol PRN Reason: Adult Acute Hypoglycemia Prot Dextrose (D10w) 125 mls @ 750 mls/hr IV PRN PRN; Protocol PRN Reason: Adult Acute Hypoglycemia Nursing Protocol Dextrose (D10w) 250 mls @ 1,000 mls/hr IV PRN PRN; Protocol PRN Reason: Adult Acute Hypoglycemia Nursing Protocol Sodium Chloride (Sodium Chloride 0.9%) 1,000 mls @ 75 mls/hr IV .[id number] [facility] Last Admin: 11/04/24 05:43 Dose: 75 mls/hr Dexmedetomidine/Sodium Chloride (Precedex) 400 mcg in 100 mls @ 0 mls/hr IV .Q0M [facility]; Protocol Last Admin: 11/04/24 05:42 Dose: 0.1 mcg/kg/hr, 1.65 mls/hr Insulin Human Lispro (Insulin Lispro 100 Unit/1 Ml) 0 unit SUBCUT WM&BEDTIME [facility]; Protocol Last Admin: 11/04/24 09:00 Dose: Not Given Isosorbide Mononitrate (Isosorbide Mononitrate 20 Mg Tablet) 20 mg PO BID [facility] Last Admin: 11/04/24 09:05 Dose: Not Given Loperamide HCl (Loperamide 2 Mg Capsule) 2 mg PO Q6H PRN PRN Reason: DIARRHEA Metoprolol Tartrate (Metoprolol Tartrate 25 Mg Tablet) 25 mg PO BID@0900,2100 [facility] Last Admin: 11/04/24 09:03 Dose: Not Given Nicotine (Nicotine 21 Mg Patch) 1 patch TRANSDERMA DAILY PRN PRN Reason: NICOTINE WITHDRAWAL Nicotine Polacrilex (Nicotine 2 Mg Gum) 2 mg BUCCAL Q2H PRN PRN Reason: NICOTINE WITHDRAWAL Olanzapine (Olanzapine 5 Mg Odt) 5 mg PO Q4H PRN PRN Reason: Agitation/Psychosis Last Admin: 11/03/24 05:16 Dose: 5 mg Ondansetron HCl (Ondansetron 4 Mg Tablet) 4 mg PO Q6H PRN PRN Reason: NAUSEA AND VOMITING Last Admin: 11/03/24 13:36 Dose: 4 mg Paroxetine HCl (Paroxetine 20 Mg Tablet) 40 mg PO DAILY [facility] Last Admin: 11/04/24 09:08 Dose: 40 mg Vancomycin HCl (Vancomycin 1,000 Mg Sdv (Pharmacy Mix)) 0 mg XX PRN PRN PRN Reason: Pharmacy to Dose Vitals/I&O/Wt Last Vital Signs Temp 97.5 F L 11/04/24 04:30 Pulse 67 11/04/24 06:00 Resp 16 11/04/24 06:00 BP 122/76 11/04/24 06:00 Pulse Ox 95 11/04/24 06:00 O2 Del Method Room Air 11/04/24 04:30 11/03/24 11/04/24 11/04/24 22:59 06:59 14:59 Intake Total 782.5 / 1032.5 Balance 782.5 / 1032.5 Physical Exam Narrative: Vital signs noted. Comfortable sitting in a chair no apparent distress. HEENT normocephalic atraumatic. Neck is supple no JVP. Lungs are clear to auscultation. Heart is regular positive S1-S2. Abdomen is soft nontender nondistended positive bowel sounds. Extremities bilateral knee tenderness and bandages. Neuro awake alert oriented x 3 with neuropathy Data 11/04/24 05:04 11/04/24 05:04 Micro: Microbiology 11/01/24 02:40 Gram Stain - Final Leg - Wound Wound Culture - Final Group g streptococcus US: My impression: no hydronephrosis, CKD, rt 9 cm l 9cm echogenic Radiologist's impression: Right kidney: 9.4 cm x 5.1 cm x 5.0 cm. Cortex: Poorly visualized. Significant change in the RIGHT kidney since the prior study from 01/12/2021. There is diffuse increased echogenicity throughout the entire kidney. Poor corticomedullary differentiation. There is also mild renal atrophy. Kidney sizes decreased from 11.6 to 9.4 cm. There is no obstruction. Left kidney: 9.0 cm x 3.9 cm x 4.1 cm. Cortex: 0.7 cm Low normal size kidney with cortical thinning. No hydronephrosis. Marked increased echogenicity with poor corticomedullary differentiation. A&P Assessment and plan (1) Acute kidney injury superimposed on CKD: 44-year-old lady with IDDM, peripheral vascular disease status post bilateral BKA's here with stump infection. 1. Patient has CKD baseline creatinine approximately 1.5 mg/dL likely due to diabetes. pth 120- repeat in 4-6 weeks 2. Acute kidney injury: Urinalysis reviewed has 4+ protein. 1+ blood. Patient has had 3+ protein in her urine for over 2 years. Currently her urinalysis also has significant granular casts can be consistent with ATN. Will check urine electrolytes will check urine protein creatinine ratio and urine albumin creatinine ratio. normal CPK. -normal complements. Agree with giving IV fluids. Avoid NSAIDs. Differential diagnosis can be ATN from dropping of blood pressure. Or can be interstitial nephritis though she does not have a significant eosinophilia. can be an infection related GN Will rule out rhabdomyolysis. Can be prerenal azotemia agree with sending electrolytes will give IV fluids. Monitor vancomycin level keep trough under 19. --she may be prerenal bladder scan w/ 450 ml monitor 3. anemia The patient was seen and examined using audiovisual equipment with the aid of a nurse. The patient consented to telehealth. Plan See above. PDMP PDMP Reviewed: Not Reviewed Attestations Medical Necessity Statement*: adriana, BKA infections Time Spent in Patient Care: 16 - 35 minutes (>than 50% of time spent in counselling and/or direct pt care on unit). Coding Level of Care Code Acute Code for Chg Fwd Diagnoses Acute kidney injury superimposed on CKD N17.9; N18.9
[2024-11-04] MEDS: metoprolol tartrate 25 mg Tablet PO (10:32)
[2024-11-04] MEDS: amlodipine 10 mg Tablet 5 MG PO (10:33)
[2024-11-04] MEDS: lactated ringers 1,000 ML 100 ML IV ×2 (10:49→23:07)
[2024-11-04 11:16] LABS: Vancomycin Trough 21.5 ug/mL (10-15)
--- NOTE | 2024-11-04 11:20 | P.CONIM_ITS ---
<Statement entered by Donal Johnson M.D - 11/05/24 08:03> Patient was evaluated and cared for in conjunction with an advanced practice practitioner.? I personally examined the patient and reviewed the chart and all pertinent data including imaging, telemetry, and laboratory results.? I discussed the patient in detail with the advanced practice practitioner.? Please see? their note for complete consult note, testing results and agreed upon plan of care for the patient. At time of my evaluation, patient sleeping comfortably. When asked about chest discomfort she says she has severe chest pain all the time. GENERAL: Patient is alert HEART: Regular S1 and S2 LUNGS: Clear to auscultate bilaterally. CENTRAL NERVOUs SYSTEM: Grossly nonfocal. Patient is atleast moderate risk for perioperative cardiac events. Chest discomfort is atypical. LV systolic function is normal. Troponins are elevated secondary to demand ischemia in setting of significant FIONA but no uptrend. EKG not showing ischemic changes. If surgery is needed, can proceed knowing cardiac risk. Patient says she is not sure if can have stress test. Not a coronary angiogram candidate with her FIONA Thank you for involving us with care of this patient. Please call with questions Providers/Reason For Consult 2 Consulting Physician/Specialty*: Dr Johnson, cardiology Reason for Consult*: preoperative cardiac clearance Requesting Physician: Dr Dahl Attending Physician: Prince Perez MD Primary Care Provider: Monika Simpson MD History of Present Illness History of Present Illness Cherrie Solomon is a 44 year old female medical history of type 1 diabetes, CKD, bilateral below the knee amputation of the lower extremities, hyperlipidemia, CAD status post VT and stent approximately 3 years ago per patient report, admitted on 10/31/2024 with self-harm and suicidal ideation due to uncontrolled pain in the bilateral thighs. Consult was requested for preoperative cardiac clearance of planned debridement and possible future elective AKA to improve wound healing and mobility. Review of Systems 2 Const: Denies: fever(s) or chills Eyes: Denies: change in vision ENMT: Denies: epistaxis Card: Reports: chest pain (Left lateral chest and breast); Denies: palpitations, irregular heart rhythm, edema, syncope, pre-syncope, dyspnea on exertion, orthopnea or leg pain with exertion Resp: Denies: dyspnea, productive cough or wheezing GI: Denies: nausea, vomiting, hematemesis, hematochezia or melena : Denies: hematuria Keith/Lymph: Denies: easy bruising or easy bleeding Medications/Allergies Home Medications ?Medication ?Instructions ?Recorded ?Confirmed ?Last Taken ?Type cyclobenzaprine 10 mg tablet 10 mg PO TID #30 tabs 11/02/24 Unknown Rx duloxetine 20 mg capsule,delayed 20 mg PO BID 30 days #60 caps 06/03/24 11/02/24 Unknown Rx release hydroxyzine pamoate 25 mg capsule 50 mg (2 x 25 mg) PO Q6H PRN 06/03/24 11/02/24 Unknown Rx Anxiety 30 days #120 caps pantoprazole 40 mg tablet,delayed 40 mg PO DAILY 30 da ys #30 tabs 06/03/24 11/02/24 Unknown Rx release paroxetine HCl 20 mg tablet 40 mg (2 x 20 mg) PO DAILY 30 days 06/03/24 11/02/24 Unknown Rx #60 tabs ropinirole 1 mg tablet 1 mg PO BEDTIME 30 days #30 tabs 06/03/24 11/02/24 Unknown Rx quetiapine 100 mg tablet 100 mg PO BEDTIME 09/13/24 0 11/02/24 Unknown History amlodipine 10 mg tablet 10 mg PO DAILY 11/01/2410/17 Unknown History dicyclomine 10 mg capsule 10 mg PO QID 11/02/24 Unknown History Allergies Allergy/AdvReac Type Severity Reaction Status Date / Time morphine Allergy ALGY-Difficulty Verified 09/12/24 20:19 Breathing sulfamethoxazole (From Allergy ADR-Vomitin Verified 09/12/24 20:19 Bactrim) g trimethoprim (From Bactrim) Allergy ADR-Vomitin Verified 09/12/24 20:19 g Current Medications Generic Name Dose Route Start Last Admin Trade Name Freq PRN Reason Stop Dose Admin Amlodipine Besylate 5 mg 11/04/24 09:00 11/04/24 10:33 Amlodipine 10 Mg Tablet PO 5 mg DAILY [facility] Administration Clonazepam 0.25 mg 11/01/24 20:00 11/04/24 09:08 Clonazepam 0.5 Mg Tablet PO 0.25 mg BID [facility] Administration Hydromorphone HCl 0.5 mg 11/02/24 21:34 11/04/24 09:28 Hydromorphone 0.5 Mg/0.5 Ml Inj IVP 0.5 mg Q6H PRN Administration SEVERE PAIN Dexmedetomidine/Sodium Chloride 400 mcg in 100 mls @ 0 mls/hr 11/04/24 05:30 11/04/24 10:51 Precedex IV 0.2 mcg/kg/hr .Q0M [facility] 3.29 mls/hr Titration Protocol Per Protocol Lactated Ringer's 1,000 mls @ 100 mls/hr 11/04/24 10:45 11/04/24 10:49 Lactated Ringers IV 100 mls/hr .Q10H [facility] Administration Insulin Human Lispro 0 unit 11/01/24 08:00 11/04/24 09:00 Insulin Lispro 100 Unit/1 Ml SUBCUT Not Given WM&BEDTIME [facility] Protocol Isosorbide Mononitrate 20 mg 11/02/24 09:00 11/04/24 09:05 Isosorbide Mononitrate 20 Mg Tablet PO Not Given BID [facility] Metoprolol Tartrate 25 mg 11/02/24 09:00 11/04/24 10:32 Metoprolol Tartrate 25 Mg Tablet PO 25 mg BID@0900,2100 [facility] Administration Olanzapine 5 mg 11/01/24 01:52 11/03/24 05:16 Olanzapine 5 Mg Odt PO 5 mg Q4H PRN Administration Agitation/Psychosis Ondansetron HCl 4 mg 11/01/24 01:52 11/03/24 13:36 Ondansetron 4 Mg Tablet PO 4 mg Q6H PRN Administration NAUSEA AND VOMITING Paroxetine HCl 40 mg 11/01/24 12:45 11/04/24 09:08 Paroxetine 20 Mg Tablet PO 40 mg DAILY [facility] Administration PFSH Acute 2 PFSH: Medical History (Updated 11/03/24 @ 16:09 by Иван Brown MD) Acute kidney injury superimposed on CKD Type 1 diabetes mellitus with other skin ulcer Suicide attempt Urinary retention Septic prepatellar bursitis of left knee Chronic pain Hyperglycemia Anemia of chronic disease Insomnia GERD (gastroesophageal reflux disease) ALEJANDRO (generalized anxiety disorder) C. 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 CKD (chronic kidney disease) stage 2, GFR 60-89 ml/min baseline Cr is around 1.0 Diabetic foot ulcer s/p surgical intervention and eventual amputation Hyperlipidemia Coronary artery disease hx of stenting Diabetic gastroparesis Diabetes mellitus type 1 diagnosed age 15, history of peripheral neuropathy, gastroparesis and nephropathy Surgical History Hx of angioplasty H/O esophagogastroduodenoscopy (12/31/20) Bile reflux gastritis, grade B esophagitis Hx of cholecystectomy History of amputation of right forefoot Below-knee amputation of left lower extremity S/P percutaneous endoscopic gastrostomy (PEG) tube placement H/O exploratory laparotomy x 3 Previous section x 3 S/P coronary artery stent placement x 1 Family History Unknown Diabetes extensive, type II Other Congestive heart failure (CHF) Social History Smoking and tobacco/nicotine status: former use of tobacco/nicotine Quit status (tobacco/nicotine): has quit using Former quit date comment: 15 yrs ago Alcohol intake: former Former alcohol use details: 15 yrs ago Substance/Drug Use: current Substance/Drug use frequency: daily Household members: spouse Marital status: Current occupation: disabled Sexually active: Yes (1, ) Female Reproductive History: Spontaneous abortions: No Vitals/I&O/Wt Last Vital Signs Temp 97.5 F L 11/04/24 04:30 Pulse 67 11/04/24 06:00 Resp 16 11/04/24 06:00 BP 122/76 11/04/24 06:00 Pulse Ox 95 11/04/24 06:00 O2 Del Method Room Air 11/04/24 04:30 11/03/24 11/04/24 11/04/24 22:59 06:59 14:59 Intake Total 782.5 / 1032.5 394.748 / 394.748 Balance 782.5 / 1032.5 394.748 / 394.748 Physical Exam 2 Const: EXAM LIMITATIONS: behavioral limitations GENERAL APPEARANCE: a nxious; not cooperative and not comfortable ORIENTATION/CONSCIOUSNESS: Yes awake and Yes oriented to person Resp: COMMON NORMALS: normal respiratory effort, No use of accessory muscles and clear to auscultation bilaterally AUSCULTATION: clear to auscultation bilaterally Cardio: COMMON NORMALS: regular rate, regular rhythm, S1 normal heart sound present, S2 normal heart sound present and No murmurs present (Cardio) RATE: regular rate RHYTHM: regular rhythm HEART SOUNDS: S1 normal heart sound present and S2 normal heart sound present Neuro: SENSORIUM/ORIENTATION: Yes oriented to person Data 11/04/24 05:04 11/04/24 05:04 Micro: Microbiology 11/01/24 02:40 Gram Stain - Final Leg - Wound Wound Culture - Final Group g streptococcus A&P Assessment and plan (1) Coronary artery disease: Qualifiers: Associated angina: without angina Coronary Disease-Associated Artery/Lesion type: [place] artery [place] vs. transplanted heart: [place] heart Qualified Code(s): I25.10 - Atherosclerotic heart disease of [place] coronary artery without angina pectoris (2) Hyperlipidemia: Qualifiers: Hyperlipidemia type: unspecified Qualified Code(s): E78.5 - Hyperlipidemia, unspecified (3) Hypertension: Qualifiers: Hypertension type: unspecified Qualified Code(s): I10 - Essential (primary) hypertension (4) Noncompliance: (5) Suicidal ideation: (6) Combative behavior: (7) Diabetes mellitus type 1: Qualifiers: Diabetes mellitus complication status: with hyperglycemia Qualified Code(s): E10.65 - Type 1 diabetes mellitus with hyperglycemia (8) Chronic kidney disease: Qualifiers: Chronic kidney disease stage: unspecified stage Qualified Code(s): N 18.9 - Chronic kidney disease, unspecified Plan Will do a troponin series to evaluate the left-sided chest pain which has been present for 3 months intermittently, and present today. As far as surgical clearance she is moderate to high risk for a perioperative cardiovascular event- she has very slightly reduced LVEF, diabetes requiring insulin treatment and serum creatinine greater than 2. If surgery is necessary, can proceed given these risks. We could consider further evaluation with a Lexiscan stress test, however this would be only possible if we can elicit the cooperation of the patient. She is laying on the floor bent over and will not lay in the bed or lay on her back. If the stress test or troponin was positive, we would still not be able to proceed with coronary angiogram for risk of worsening her kidney function perhaps to the point of renal failure requiring dialysis given creatinine of 3.1 today. PDMP PDMP Reviewed: Not Reviewed Coding Level of Care Code Acute Code for Chg Fwd Diagnoses Coronary artery disease involving [place] coronary artery of [place] heart without angina pectoris I25.10 Associated angina: without angina Coronary Disease-Associated Artery/Lesion type: [place] artery [place] vs. transplanted heart: [place] heart Hyperlipidemia, unspecified hyperlipidemia type E78.5 Hyperlipidemia type: unspecified Hypertension, unspecified type I10 Hypertension type: unspecified Noncompliance Z91.19 Suicidal ideation R45.851 Combative behavior R46.89 Type 1 diabetes mellitus with hyperglycemia E10.65 Diabetes mellitus complication status: with hyperglycemia Chronic kidney disease N18.9 Chronic kidney disease stage: unspecified stage
[2024-11-04 11:44] LABS: Troponin(5th) Baseline 59 ng/L (0-10)
--- NOTE | 2024-11-04 13:08 | PC.NURSE ---
throughout the morning, the patient has insisted on laying on the floor and waalking around the room on her stumps. A floor mat is in place for her to lay on while on the floor. Patient complains of severe pain to her stumps but continues to walk on them. DUring Dr block's rounding he also advised to not walk on her stumps due to osteomylitis. After Dr Kerr visit she wanted to get back to to eat lunch, but after getting in bed the patient started to try and make herself fall out of bed onto the side without a fall mat. Patient was yelling that she wanted to get onto the floor, nurse explained that she can do that but we have to let her do it safely. After the floor mat was placed back the patient was assisted to the floor safely, but she then started purposefully hitting her head against the bed rail in an attempt to harm herself. WIth the assistance of another nurse, the patient was placed back in bed with bed rails padded. With out the ability to hit her head on the rails she then started punching herself in the face. Precedex increased. Dr Dahl notified
--- NOTE | 2024-11-04 13:10 | P.PN_ITS ---
Subjective 2 Subjective: Patient's been n.p.o. since midnight possible surgery today however at this point time needing further cardiac workup and possible stress test by cardiology per the primary team at this point time we will hold off on surgery today be n.p.o. at midnight tomorrow with possible surgical intervention tomorrow. Vitals/I&O/Wt Last Vital Signs Temp 97.5 F L 11/04/24 04:30 Pulse 67 11/04/24 06:00 Resp 16 11/04/24 06:00 BP 122/76 11/04/24 06:00 Pulse Ox 95 11/04/24 06:00 O2 Del Method Room Air 11/04/24 04:30 11/03/24 11/04/24 11/04/24 22:59 06:59 14:59 Intake Total 782.5 / 1032.5 394.748 / 394.748 Balance 782.5 / 1032.5 394.748 / 394.748 Physical Exam 2 Narrative: Right knee examination: Examination the right knee demonstrates multiple previous incisions over the right knee as well as a below the knee amputation stump appreciated the right lower extremity. Patient's stump incision is completely healed no signs of infection. Patient does have a large softball sized fluctuant fluid accumulation in the prepatellar bursa region she is able to actively flex and extend the knee with no pain or discomfort but does have tenderness palpation and warmth and mild redness about the prepatellar bursa consistent with septic prepatellar bursitis. Left knee examination: Patient left knee examination does demonstrate previous left below the knee amputation stump with open wound and drainage. Inspection of the wound this has purulent appearing drainage as well as inspection as well as palpation of this wound probes directly down to the tibial bone with exposed tibial bone. Patient has mild erythema as well as swelling and palpable fluctuance at the distal aspect of the stump. Patient can actively flex and extend at the knee. The previous longitudinal incision noted at the anterior aspect of the knee. This is healed. Urinary Catheter Management: Riojas: Cath Placed During This Visit: yes, but has since been removed by the nurse Reason for Continuing Indwelling Catheter: Accurate Measurement of Urinary Output in Critically Ill Patients Urinary Catheter Date of Insertion: 11/04/24 Urinary Catheter Time of Insertion: 16:00 Date Urinary Catheter Removed: 11/06/24 Time Urinary Catheter Discontinued: 14:00 Data 11/07/24 04:24 11/07/24 04:24 Micro: Microbiology 11/01/24 02:40 Gram Stain - Final Leg - Wound Wound Culture - Final Group g streptococcus A&P Assessment and plan (1) Pain of amputation stump of left lower extremity: (2) Infection of amputation stump: (3) Infection of amputation stump, left lower extremity: (4) Septic prepatellar bursitis of right knee: (5) Prepatellar bursitis: (6) Bursitis due to bacterial infection: Plan N.p.o. since midnight Can have diet today No orthopedic surgical intervention as per primary team patient requiring cardiac workup and optimization prior to surgical intervention Orthopedics will continue to follow until patient's optimized for surgical intervention. N.p.o. at midnight just in case patient is cleared and optimized for surgical intervention tomorrow. Plan will be for a right knee irrigation debridement, left knee below the knee amputation revision, possible [id number] amputation. Once again patient understands the ins and outs procedure the risk benefits complication alternatives of surgery. Risk of surgery include not limited to make it better, make it worse, persistent wound complications, increased metabolic demand if doing a AKA, infection, further surgeries. Understanding the risks as well as the importance of strict adherence to not walking on her stumps she elects to proceed once we have clearance and medical optimization. Patient understands agrees with current plan. Questions answered. Ortho will continue to follow. PDMP PDMP Reviewed: Not Reviewed Attestations 2 Medical Necessity Statement*: Osteomyelitis left stump, will require amputation during hospitalization. Coding Level of Care Code Acute Code for [facility] Fwd Diagnoses Pain of amputation stump of left lower extremity T87.89; M79.605 Infection of amputation stump T87.40 Infection of amputation stump, left lower extremity T87.44 Septic prepatellar bursitis of right knee M71.161 Prepatellar bursitis M70.40 Bursitis due to bacterial infection M71.10; B96.89 Time Spent (min) 15
[2024-11-04] MEDS: linezolid premix 600 MG/300 ML PREMIX 300 MG IV (13:15)
[2024-11-04 13:17] LABS: Troponin 5 2HR 60.38 ng/L (0-10); Troponin 5 2HR Delta 1.38 ABS# (0-10)
[2024-11-04 13:33] LABS: Glucose Point of Care 125 mg/dL (70-110)
--- NOTE | 2024-11-04 13:51 | P.PN_ITS ---
Subjective 2 Subjective: Seen this morning. Overnight event noted. Patient became quite combative and started hitting her head on the floor and started crawling on the floor at 1 point. Patient had to be transferred to ICU for Precedex drip. He was also given Dilaudid Haldol and Zyprexa. This morning seen laying on the floor with blanket covering her attempting to sleep. He is able to answer questions. Today she reports chest pain that she has been having for the last 3 to 4 months. Previously however when I have asked her about chest pain she has denied it. Today she states she has been having intermittent chest pain that comes and goes. However she reported to cardiology that she has been having persistent chest pain. Troponins ordered. Echo also resulted with wall motion abnormality. Discussed with patient regarding possible stress test in a.m. to which she is agreeable at this time. Vitals/I&O/Wt Last Vital Signs Temp 97.5 F L 11/04/24 04:30 Pulse 67 11/04/24 06:00 Resp 16 11/04/24 06:00 BP 122/76 11/04/24 06:00 Pulse Ox 95 11/04/24 06:00 O2 Del Method Room Air 11/04/24 04:30 11/03/24 11/04/24 11/04/24 22:59 06:59 14:59 Intake Total 782.5 / 1032.5 394.748 / 394.748 Balance 782.5 / 1032.5 394.748 / 394.748 Physical Exam 2 Narrative: General: Alert oriented, patient appears sleepy. She is laying on floor at this time with sitter at bedside. Denies current chest pain. HEENT: PERRLA, pupils bilaterally equal and reactive, Chest: Normal vesicular breath sounds, no added sounds, equal good air entry bilaterally CVS: S1-S2 regular, no gross murmurs. Abdomen: Soft, nontender, bowel sounds present Neuro: No focal deficits grossly Extremities: stumps covered with bandage at this time. Data 11/04/24 05:04 11/04/24 05:04 Micro: Microbiology 11/01/24 02:40 Gram Stain - Final Leg - Wound Wound Culture - Final Group g streptococcus A&P Assessment and plan (1) Hypertension: Off Cardene drip, discontinue clonidine which can cause increase the risk of rebound hypertension, will use isosorbide mononitrate along amlodipine and metoprolol Qualifiers: Hypertension type: unspecified Qualified Code(s): I10 - Essential (primary) hypertension (2) Leukocytosis: Patient present with significant leukocytosis She has a extensive history of wounds Repeat blood work ordered for this morning Obtain inflammatory markers Check urinalysis Start oral antibiotics while awaiting above results (3) Chronic kidney disease: Worsening kidney function noted, patient endorsing voiding urine, Monitor kidney function for now Qualifiers: Chronic kidney disease stage: unspecified stage Qualified Code(s): N 18.9 - Chronic kidney disease, unspecified (4) Psychosis: No acute decompensation (5) Knee swelling: Patient will need drainage of right knee fluid collection Will consult Dr. Salas orthopedics Patient already on antibiotics leukocytosis trending down, no active fever Plan DVT prophylaxis: Hold anticoagulating agent patient will need drainage of right knee 11/03/2024 Creatinine 2.7 today. Baseline 1.7-1.8. Patient does have an FIONA at this time. Etiology unknown however possibility of vancomycin induced? Vanc trough 10.5. Consult nephrology MRI bilateral lower extremity reviewed: Evidence of osteomyelitis. Orthopedic surgery consulted. Plan for amputation and debridement today. Please see Ortho note for details. Patient will require extensive wound care, IV antibiotics were at least 6 weeks going forward after surgery. Will refer to LTAC for possible transfer. Patient initially admitted with suicidal ideation. Will discuss with psychiatry regarding further plan. At this time she does not endorse suicidal ideation. Continue Dilaudid for pain. Continue Klonopin for anxiety. Revised cardiac risk index: Score 2 points, 10.1% risk for 30-day mortality. Placed on normal saline 75 cc/h. will check echo as part of pre-op clearance. Patient does have a history of coronary disease with history of stents and 2020 after [place], hypertension hyperlipidemia. She was supposed have a stress test scheduled in 2021 but I do not believe it ever got completed. Patient is not cleared for surgery yet 11/04/2024 Creatinine 3.1 today. Unsure etiology. Possible ATN?. Will stop vancomycin and switch to IV linezolid. Nephrology following. Appreciate recommendations. Renal ultrasound reviewed. Will await further recommendations for today. ? Patient requires amputation for source control secondary to osteomyelitis. We are currently in the process of obtaining cardiac clearance. ? Echo shows normal LV size with borderline low ejection fraction 52%. Moderate hypokinesis of basal inferior wall segment. ? Patient states that her last coronary angiogram was done at [facility] close to [place]. She does not remember the name of the hospital. She states she had stents placed about 3 years ago. ? We will be requesting records. ? Cardiology consulted for cardiac clearance. Plan for possible stress test in AM. ? If optimized from cardiology standpoint and okay to proceed to surgery tentatively plan for amputation with orthopedic surgery as soon as cleared from cardiology standpoint.. Will keep patient n.p.o. at midnight tonight for stress test in a.m. if patient is unable to tolerate stress testing cardiology has no plans of proceeding to angiogram given active FIONA at this time. We will await for further recommendations. ? Discussed with orthopedic surgery. Once patient optimized from cardiology standpoint we will proceed with surgery. Ortho recommendations appreciated. ? Consult infectious disease for antibiotic recommendations going forward. ? Patient will need LTAC versus prison placement after surgery for wound care and IV antibiotic administration. ? I had a conversation with patient on multiple occasions regarding proceeding with amputation to which she is agreeable to. Patient is not interested in going forward with wound care and continuing antibiotics. She has stated on various occasions that she has already tried that and knows where this is going to go and what will happen therefore she would like to proceed with amputation. Patient understands that she will need extensive wound care and a lot of care after surgery to ensure adequate healing of her surgical wounds. ? She does have back pain which is chronic. Will continue using Dilaudid 0.5 every 6 hours. I will add hydrocodone 5 mg every 4 hours as needed as well. ? Primary team is psychiatry. Medicine ID and orthopedic services are on consult. PDMP PDMP Reviewed: Not Reviewed Attestations 2 Medical Necessity Statement*: Patient requires amputation for source control as she has active osteomyelitis. Patient has failed antibiotics as an outpatient. Awaiting cardiac clearance before proceeding to surgery. Diagnoses Hypertension, unspecified type I10 Hypertension type: unspecified Leukocytosis D72.829 Chronic kidney disease N18.9 Chronic kidney disease stage: unspecified stage Psychosis F29 Knee swelling M25.469
--- NOTE | 2024-11-04 16:52 | P.NPUPN_ITS ---
Subjective NPU 2 Subjective: 44-year-old white female now in ICU admi tted with suicidal ideation. the patient appeared to have some significant behavioral problems and CSU. She had made attempts to leave her bed and had been noncompliant while complaining of pain leading to patient moving to the ICU. She was sedated and uncooperative on interview today. Mental Status Exam 2 MSE Comments: This is an overweight white female in hospital scrubs with limited grooming and eye contact with notable below-knee amputation bilaterally lying in hospital bed. No abnormal involuntary motor movements were appreciated. She was?uncooperative with exam in no acute distress.? Speech was limited in rate , slurred and normal in volume. ? Mood described as okay. Affect was restricted. Thought process was linear and logical. Thought content: Patient denied suicidal ideation and denied homicidal ideation today. There was no evidence of delusional thinking. She denied auditory or visual hallucinations and did not appear to be responding to internal stimuli. Attention and concentration were impaired. She was in and out of consciousness.? Insight, judgment and impulse control are all limited versus impaired. Vitals/I&O/Wt Last Vital Signs Temp 97.5 F L 11/04/24 04:30 Pulse 67 11/04/24 06:00 Resp 16 11/04/24 06:00 BP 122/76 11/04/24 06:00 Pulse Ox 95 11/04/24 06:00 O2 Del Method Room Air 11/04/24 04:30 11/04/24 11/04/24 11/04/24 06:59 14:59 22:59 Intake Total 782.5 / 1032.5 401.002 / 401.002 Balance 782.5 / 1032.5 401.002 / 401.002 Data NPU 11/04/24 05:04 11/04/24 05:04 A&P Assessment and plan (1) Hypertension: Off Cardene drip, discontinue clonidine which can cause increase the risk of rebound hypertension, will use isosorbide mononitrate along amlodipine and metoprolol Qualifiers: Hypertension type: unspecified Qualified Code(s): I10 - Essential (primary) hypertension (2) Leukocytosis: Patient present with significant leukocytosis She has a extensive history of wounds Repeat blood work ordered for this morning Obtain inflammatory markers Check urinalysis Start oral antibiotics while awaiting above results (3) Chronic kidney disease: Worsening kidney function noted, patient endorsing voiding urine, Monitor kidney function for now Qualifiers: Chronic kidney disease stage: unspecified stage Qualified Code(s): N 18.9 - Chronic kidney disease, unspecified (4) Psychosis: No acute decompensation (5) Knee swelling: Patient will need drainage of right knee fluid collection Will consult Dr. Salas orthopedics Patient already on antibiotics leukocytosis trending down, no active fever PDMP PDMP Reviewed: Not Reviewed Involuntary Hold Information 2 96 Hour Hold: 96 Hour Involuntary Admission: No Attestations NPU 2 Medical Necessity Statement*: 44 year old with multiple medical proble ms with history of depression, anxiety and borderline personality traits endorsing suicidal ideation with history of noncompliance with medications. Patient on CSU and appears better today. #1.? Engage patient in individual milieu and group therapy. #2?? Recommend sober living treatment at the highest level of care to which the patient is willing to commit #3??? Continue Klonopin .25mg bid,Continue seroquel 150mg at night, Increase Paxil 60mg daily. #4?? TO-15 minute checks??? Coding Level of Care Code Acute Code for [facility] Fwd Diagnoses Hypertension, unspecified type I10 Hypertension type: unspecified Leukocytosis D72.829 Chronic kidney disease N18.9 Chronic kidney disease stage: unspecified stage Psychosis F29 Knee swelling M25.469
[2024-11-04 17:43] LABS: Troponin 5 6HR 58.47 ng/L (0-10)
[2024-11-04 17:44] LABS: Troponin 5 6HR Delta -0.53 ng/L (0-12)
[2024-11-04 17:54] LABS: Glucose Point of Care 105 mg/dL (70-110)
[2024-11-04] MEDS: isosorbide mononitrate 20 mg Tablet PO (18:29)
[2024-11-04 19:06] LABS: Potassium, Radom Urine 27 mmol/L; Urine Creatinine 160 mg/dL (28-217); Urine Random Sodium 30 mmol/L
[2024-11-04 19:12] LABS: Urine Random Chloride 18 mmol/L
--- NOTE | 2024-11-04 19:23 | PC.NURSE ---
SHift SUmmary: Patient spent about half of the shift lying on the floor mat with blanket and pillow as this was her choice and stated it was the most comfortable. Fdc through the day she started self harm behaviors (see previous nurse notes from 11/04/2024) and was moved back to bed to keep her safe. Patient's self harm behaviors included punching herself in the face and in the head, and while on the floor she was banging her head into the floor or the hospital bed. patient was brought back to bed, additional padding provided, and increased precedex for agitation. Self harms behaviors seem to occur after the patient is given an instruction, such as when Dr Salas told her she can not continue to walk on her open wound stumps. Or when nursing staff tells her that she cannot eat before a surgery. NPO at midnight. Stress test tommorow.
[2024-11-04 21:53] LABS: Glucose Point of Care 90 mg/dL (70-110)
--- NOTE | 2024-11-04 22:45 | PC.NURSE ---
Pt complaining of 10/10 pain in lower back/hips after receiving 0.5 mg IVP dilaudid. Pt stated I'm about to start hitting myself in the head if it doesn't stop. Dr. Gonzalez notified, received order for additional dose 1 mg IVP dilaudid Q8H.
[2024-11-04] MEDS: OLANZapine 5 mg ODT PO (22:53)
[2024-11-04] MEDS: HYDROmorphone 0.5 MG/0.5 ML INJ 1 MG IVP (22:56)
[2024-11-05] VITALS (51 sets, daily range): BP systolic 92–183; BP diastolic 58–112; PULSE 57–102; RESP 10–41; TEMP 36.4–37.1; O2SAT 92–100
[2024-11-05] MEDS: linezolid premix 600 MG/300 ML PREMIX 300 MG IV ×2 (00:22→12:11)
[2024-11-05] MEDS: oxyCODONE-APAP 5-325 mg Tablet 1 TAB PO ×3 (02:15→20:53)
--- NOTE | 2024-11-05 04:11 | PC.NURSE ---
Pt in 8/10 pain, sitting up in bed rubbing back against side rail. Dr. Gonzalez notified. New order for 1 mg dilaudid IVP once.
[2024-11-05 04:15] LABS: Basophils % 0.7 %; Eosinophils # 0.1 10^3/uL (0.0-0.8); Eosinophils % 1.4 %; Hematocrit 27.9 % (36-47); Lymphocytes # 1.4 10^3/uL (0.8-4.8); Lymphocytes % 24.6 %; Mean Corpuscular HGB Conc 30.8 g/dL (30-55); Mean Corpuscular Volume 90.9 fl (85-98); Mean Platelet Volume 8.6 fL (7.4-10.4); Monocytes # 0.3 10^3/uL (0.2-0.9); Monocytes % 5.3 %; Neutrophils # 3.77 10^3/uL (1.8-7.7); Neutrophils % 67.3 %; Nucleated Red Blood Cells % 0 %; Platelet Count 402 10^3/cmm (157-399); Red Blood Count 3.07 10^6/uL (3.85-5.65); Red Cell Distribution Width 14.3 % (12.1-15.1); White Blood Count 5.61 10^3/uL (3.29-11.43)
[2024-11-05] MEDS: HYDROmorphone 1 mg/mL INJ 1ml IVP (04:39)
[2024-11-05 04:43] LABS: Alanine Aminotransferase < 5 U/L (0-33); Albumin Level 2.9 g/dL (3.5-5.2); Alkaline Phosphatase 196 U/L (35-105); Anion Gap 15.7 (5-19); Aspartate Amino Transferase 8 U/L (0-32); Blood Urea Nitrogen 35 mg/dL (6-20); Calcium 8.6 mg/dL (8.5-10.5); Carbon Dioxide 21 mmol/L (22-29); Chloride 104 mmol/L (98-107); Globulin 3.7 g/dL (1.3-4.6); Glomerular Filtration Rate 19.8 mL/min (90-130); Glucose 155 mg/dL (65-115); Magnesium 1.9 mg/dL (1.7-2.3); Osmolality Calculated 295 mOsm/kg (285-295); Phosphorus 3.4 mg/dL (2.5-4.5); Potassium 3.7 mmol/L (3.5-5.1); Sodium 137 mmol/L (136-145); Total Bilirubin 0.2 mg/dL (0.15-1.2); Total Protein 6.6 g/dL (6.6-8.7)
[2024-11-05] MEDS: OLANZapine 5 mg ODT PO (04:52)
--- NOTE | 2024-11-05 04:56 | PC.NURSE ---
Pt punching herself in the head repeatedly from pain. Pain rating 10/10, just gave 1 mg dose ivp dilaudid and 5mg Zyprexa PO PRN. Medication administration delayed due to pharmacy verification and unavailability in ICU pyxis.
[2024-11-05] MEDS: dexmedeTOMIDine 0.9 % NaCL 400 MCG/100 ML PREMIX IV ×2 (06:56→21:56)
[2024-11-05 07:21] LABS: Glucose Point of Care 120 mg/dL (70-110)
[2024-11-05] MEDS: lactated ringers 1,000 ML 100 ML IV (09:05)
[2024-11-05] MEDS: CLONazepam 0.5 mg Tablet 0.25 MG PO ×2 (09:07→19:26)
[2024-11-05] MEDS: PARoxetine 20 mg Tablet 40 MG PO (09:07)
[2024-11-05] MEDS: isosorbide mononitrate 20 mg Tablet PO ×2 (09:08→19:26)
[2024-11-05] MEDS: HYDROmorphone 0.5 MG/0.5 ML INJ 1 MG IVP ×3 (09:09→19:27)
--- NOTE | 2024-11-05 09:58 | P.PN_ITS ---
<Statement entered by Donal Johnson M.D - 11/07/24 08:10> Patient was evaluated and cared for in conjunction with an advanced practice practitioner.? I personally examined the patient and reviewed the chart and all pertinent data including imaging, telemetry, and laboratory results.? I discussed the patient in detail with the advanced practice practitioner.? Please see? their note for complete progress note, testing results and agreed upon plan of care for the patient. Patient denies chest pain. Patient has moderate to high risk of veronique-operative cardiac event. Please call with questions. GENERAL: Patient is alert, awake and oriented x3. HEART: Regular S1 and S2 LUNGS: Clear to auscultate bilaterally. CENTRAL NERVOUS SYSTEM: Grossly nonfocal. Subjective 2 Subjective: Patient laying in bed this morning, appears sedated. Reviewed with the nurse. She had a Riojas catheter placed. In sinus rhythm. Plan is for surgery, AKA at some point, for better wound healing snf. She is at acceptable moderate to high risk for cardiac event, can proceed. Vitals/I&O/Wt Last Vital Signs Temp 98.6 F 11/05/24 07:00 Pulse 61 11/05/24 08:00 Resp 12 11/05/24 08:00 BP 112/70 11/05/24 08:00 Pulse Ox 98 11/05/24 08:00 O2 Del Method Room Air 11/05/24 08:00 11/04/24 11/05/24 11/05/24 22:59 06:59 14:59 Intake Total 1362.734 / 2086.250 322.514 / 2086.250 1006.667 / 1006.667 Output Total 600 / 950 350 / 950 Balance 762.734 / 1136.250 -27.486 / 6828.854 5283.667 / 1006.667 Weight last 48 hrs Weight 142 lb 3.17 oz Physical Exam 2 Const: ORIENTATION/CONSCIOUSNESS: Yes Other orientation findings (sedated) Resp: COMMON NORMALS: clear to auscultation bilaterally AUSCULTATION: clear to auscultation bilaterally Cardio: COMMON NORMALS: regular rate, regular rhythm, S1 normal heart sound present and S2 normal heart sound present RATE: regular rate RHYTHM: r egular rhythm HEART SOUNDS: S1 normal heart sound present, S2 normal heart sound present and no murmurs Urinary Catheter Management: Riojas: Cath Placed During This Visit: yes Reason for Continuing Indwelling Catheter: Accurate Measurement of Urinary Output in Critically Ill Patients Urinary Catheter Date of Insertion: 11/04/24 Urinary Catheter Time of Insertion: 16:00 Data 11/05/24 03:50 11/05/24 03:50 A&P Assessment and plan (1) Coronary artery disease: Qualifiers: Coronary Disease-Associated Artery/Lesion type: [place] artery [place] vs. transplanted heart: [place] heart Associated angina: without angina Q ualified Code(s): I25.10 - Atherosclerotic heart disease of [place] coronary artery without angina pectoris (2) Hyperlipidemia: Qualifiers: Hyperlipidemia type: unspecified Qualified Code(s): E78.5 - Hyperlipidemia, unspecified (3) Hypertension: Qualifiers: Hypertension type: unspecified Qualified Code(s): I10 - Essential (primary) hypertension (4) Combative behavior: (5) Suicidal ideation: Plan No changes in the current plan, nothing further required from cardiology services. We will be signing off. PDMP PDMP Reviewed: Not Reviewed Attestations 2 Medical Necessity Statement*: Per primary team Coding Level of Care Code Acute Code for g Fwd Diagnoses Coronary artery disease involving [place] coronary artery of [place] heart without angina pectoris I25.10 Coronary Disease-Associated Artery/Lesion type: [place] artery [place] vs. transplanted heart: [place] heart Associated angina: without angina Hyperlipidemia, unspecified hyperlipidemia type E78.5 Hyperlipidemia type: unspecified Hypertension, unspecified type I10 Hypertension type: unspecified Combative behavior R46.89 Suicidal ideation R45.851
--- NOTE | 2024-11-05 09:58 | PM.PN ---
Subjective Subjective: Patient laying in bed this morning, appears sedated. Reviewed with the nurse. She had a Riojas catheter placed. In sinus rhythm. Plan is for surgery, AKA at some point, for better wound healing prison. She is at acceptable moderate to high risk for cardiac event, can proceed. Vitals/I&O/Wt Last Vital Signs Temp 98.6 F 11/05/24 07:00 Pulse 61 11/05/24 08:00 Resp 12 11/05/24 08:00 BP 112/70 11/05/24 08:00 Pulse Ox 98 11/05/24 08:00 O2 Del Method Room Air 11/05/24 08:00 11/04/24 11/05/24 11/05/24 22:59 06:59 14:59 Intake Total 1362.734 / 2086.250 322.514 / 2086.250 1006.667 / 1006.667 Output Total 600 / 950 350 / 950 Balance 762.734 / 1136.250 -27.486 / 2828.567 1365.667 / 1006.667 Weight last 48 hrs Weight 142 lb 3.17 oz Physical Exam Const: ORIENTATION/CONSCIOUSNESS: Yes Other orientation findings (sedated) Resp: COMMON NORMALS: clear to auscultation bilaterally AUSCULTATION: clear to auscultation bilaterally Cardio: COMMON NORMALS: regular rate, regular rhythm, S1 normal heart sound present and S2 normal heart sound present RATE: regular rate RHYTHM: regular rhythm HEART SOUNDS: S1 normal heart sound present, S2 normal heart sound present and no murmurs Urinary Catheter Management: Riojas: Cath Placed During This Visit: yes Reason for Continuing Indwelling Catheter: Accurate Measurement of Urinary Output in Critically Ill Patients Urinary Catheter Date of Insertion: 11/04/24 Urinary Catheter Time of Insertion: 16:00 Data 11/05/24 03:50 11/05/24 03:50 A&P Assessment and plan (1) Coronary artery disease: Qualifiers: Coronary Disease-Associated Artery/Lesion type: [place] artery [place] vs. transplanted heart: [place] heart Associated angina: without angina Qualified Code(s): I25.10 - Atherosclerotic heart disease of [place] coronary artery without angina pectoris (2) Hyperlipidemia: Qualifiers: Hyperlipidemia type: unspecified Qualified Code(s): E78.5 - Hyperlipidemia, unspecified (3) Hypertension: Qualifiers: Hypertension type: unspecified Qualified Code(s): I10 - Essential (primary) hypertension (4) Combative behavior: (5) Suicidal ideation: Plan No changes in the current plan, nothing further required from cardiology services. We will be signing off. PDMP PDMP Reviewed: Not Reviewed Attestations Medical Necessity Statement*: Per primary team Coding Level of Care Code Acute Code for g Fwd Diagnoses Coronary artery disease involving [place] coronary artery of [place] heart without angina pectoris I25.10 Coronary Disease-Associated Artery/Lesion type: [place] artery [place] vs. transplanted heart: [place] heart Associated angina: without angina Hyperlipidemia, unspecified hyperlipidemia type E78.5 Hyperlipidemia type: unspecified Hypertension, unspecified type I10 Hypertension type: unspecified Combative behavior R46.89 Suicidal ideation R45.851
--- NOTE | 2024-11-05 10:11 | PC.NURSE ---
Spoke with Dr. Dahl about holding amlodipine and metoprolol due to patient heart rate in 50's and blood pressure soft. Dr. Dahl gave verbal order to titrate precedex down to off as patient tolerates. See MAR and charted vitals.
--- NOTE | 2024-11-05 10:40 | PM.PN ---
Subjective Subjective: The patient was seen and examined. She is upset about her surgery being delayed. She understands that she would likely need AKA. She has nausea and some headaches. No diarrhea no itching or cramps she has some leg pain. Otherwise review of systems has not changed. Medications: Reviewed: Yes Medication Review Details: Current Medications Amlodipine Besylate (Amlodipine 10 Mg Tablet) 5 mg PO DAILY [facility] Last Admin: 11/05/24 10:14 Dose: Not Given Benztropine Mesylate (Benztropine 1 Mg Tablet) 1 mg PO BID PRN PRN Reason: Mild Extrapyramidal symptoms Camphor/Menthol/Phenol (Blistex Lip Oint 7 Gm Tube) 1 applic TOPICAL Q1H PRN PRN Reason: DRYNESS Clonazepam (Clonazepam 0.5 Mg Tablet) 0.25 mg PO BID [facility] Last Admin: 11/05/24 09:07 Dose: 0.25 mg Diphenhydramine HCl (Diphenhydramine 50 Mg/Ml Sdv 1ml) 50 mg IM ONCE PRN PRN Reason: Severe Extrapyramidal Symptoms Glucagon (Glucagon 1 Mg/Ml Kit 1 Ml) 1 mg IM ONCE PRN; Protocol PRN Reason: Adult Acute Hypoglycemia Nursing Prot. Hydralazine HCl (Hydralazine 20 Mg/Ml Inj 1 Ml) 10 mg IVP Q4H PRN PRN Reason: SBP>180mmHg or DBP>110mmHG Hydromorphone HCl (Hydromorphone 0.5 Mg/0.5 Ml Inj) 1 mg IVP Q8H PRN PRN Reason: SEVERE PAIN Last Admin: 11/05/24 09:09 Dose: 1 mg Dextrose (D5w) 500 mls @ 0 mls/hr IV ONCE PRN; Protocol PRN Reason: Adult Acute Hypoglycemia Prot Dextrose (D10w) 125 mls @ 750 mls/hr IV PRN PRN; Protocol PRN Reason: Adult Acute Hypoglycemia Nursing Protocol Dextrose (D10w) 250 mls @ 1,000 mls/hr IV PRN PRN; Protocol PRN Reason: Adult Acute Hypoglycemia Nursing Protocol Dexmedetomidine/Sodium Chloride (Precedex) 400 mcg in 100 mls @ 0 mls/hr IV .Q0M [facility]; Protocol Last Titration: 11/05/24 10:07 Dose: 0.2 mcg/kg/hr, 3.29 mls/hr Lactated Ringer's (Lactated Ringers) 1,000 mls @ 100 mls/hr IV .Q10H [facility] Last Admin: 11/05/24 09:05 Dose: 100 mls/hr Linezolid (Zyvox Premix) 600 mg in 300 mls @ 300 mls/hr IV Q12H [facility]; Protocol Last Infusion: 11/05/24 03:11 Dose: Infused Insulin Human Lispro (Insulin Lispro 100 Unit/1 Ml) 0 unit SUBCUT WM&BEDTIME [facility]; Protocol Last Admin: 11/05/24 07:35 Dose: Not Given Isosorbide Mononitrate (Isosorbide Mononitrate 20 Mg Tablet) 20 mg PO BID [facility] Last Admin: 11/05/24 09:08 Dose: 20 mg Loperamide HCl (Loperamide 2 Mg Capsule) 2 mg PO Q6H PRN PRN Reason: DIARRHEA Metoprolol Tartrate (Metoprolol Tartrate 25 Mg Tablet) 25 mg PO BID@0900,2100 [facility] Last Admin: 11/05/24 10:14 Dose: Not Given Nicotine (Nicotine 21 Mg Patch) 1 patch TRANSDERMA DAILY PRN PRN Reason: NICOTINE WITHDRAWAL Nicotine Polacrilex (Nicotine 2 Mg Gum) 2 mg BUCCAL Q2H PRN PRN Reason: NICOTINE WITHDRAWAL Olanzapine (Olanzapine 5 Mg Odt) 5 mg PO Q4H PRN PRN Reason: Agitation/Psychosis Last Admin: 11/05/24 04:52 Dose: 5 mg Ondansetron HCl (Ondansetron 4 Mg Tablet) 4 mg PO Q6H PRN PRN Reason: NAUSEA AND VOMITING Last Admin: 11/03/24 13:36 Dose: 4 mg Oxycodone/Acetaminophen (Oxycodone-Apap 5-325 Mg Tablet) 1 tab PO Q4H PRN PRN Reason: MODERATE PAIN Last Admin: 11/05/24 02:15 Dose: 1 tab Paroxetine HCl (Paroxetine 20 Mg Tablet) 40 mg PO DAILY [facility] Last Admin: 11/05/24 09:07 Dose: 40 mg Vitals/I&O/Wt Last Vital Signs Temp 98.6 F 11/05/24 07:00 Pulse 59 L 11/05/24 10:00 Resp 14 11/05/24 10:00 BP 148/76 11/05/24 10:00 Pulse Ox 96 11/05/24 10:00 O2 Del Method Room Air 11/05/24 10:00 11/04/24 11/05/24 11/05/24 22:59 06:59 14:59 Intake Total 1362.734 / 1763.736 322.514 / 2086.250 1022.393 / 1022.393 Output Total 600 / 600 350 / 950 Balance 762.734 / 1163.736 -27.486 / 4497.198 4782.393 / 1022.393 Weight last 48 hrs Weight 64.5 kg Physical Exam Narrative: Vital signs noted. Comfortable sitting in a chair no apparent distress. HEENT normocephalic atraumatic. Neck is supple no JVP. Lungs -diminished bases Heart is regular positive S1-S2. Abdomen is soft nontender nondistended positive bowel sounds. Extremities bilateral knee tenderness and bandages. Neuro awake alert oriented x 3 with neuropathy Urinary Catheter Management: Riojas: Cath Placed During This Visit: yes Reason for Continuing Indwelling Catheter: Accurate Measurement of Urinary Output in Critically Ill Patients Urinary Catheter Date of Insertion: 11/04/24 Urinary Catheter Time of Insertion: 16:00 Data 11/05/24 03:50 11/05/24 03:50 A&P Assessment and plan (1) Acute kidney injury superimposed on CKD: 44-year-old lady with IDDM, peripheral vascular disease status post bilateral BKA's here with stump infection. 1. Patient has CKD baseline creatinine approximately 1.5 mg/dL likely due to diabetes. pth 120- repeat in 4-6 weeks 2. Acute kidney injury: Urinalysis reviewed has 4+ protein. 1+ blood. Patient has had 3+ protein in her urine for over 2 years. Currently her urinalysis also has significant granular casts can be consistent with ATN. Creatinine and urine output improving with IV fluids. Patient's urine sodium was 30 with a chloride of 18 urine creatinine of 160. Continue to monitor and IV fluids. -normal CPK. -normal complements. - Avoid NSAIDs. -Most likely FIONA is from prerenal azotemia versus ATN -Monitor vancomycin level keep trough under 19. Vancomycin level was 21.5 yesterday - bladder scan w/ 450 ml monitor. She states she is urinating 3. anemia-patient has a ferritin of 1385 and a 19% saturation. No need for IV iron. Epogen is not effective with acute kidney injury will monitor 4. For AKA. Monitor renal function. 5. Leukocytosis is improving. 6. Blood pressure well-controlled The patient was seen and examined using audiovisual equipment with the aid of a nurse. The patient consented to telehealth. Plan See above. PDMP PDMP Reviewed: Not Reviewed Attestations Medical Necessity Statement*: FIONA in a patient with peripheral vascular disease status post BKA awaiting AKA. Time Spent in Patient Care: 16 - 35 minutes Coding Level of Care Code Acute Code for Chg Fwd Diagnoses Acute kidney injury superimposed on CKD N17.9; N18.9
[2024-11-05 11:36] LABS: Glucose Point of Care 88 mg/dL (70-110)
--- NOTE | 2024-11-05 11:56 | PC.NURSE ---
Wound L BKA: Island dressing removed, Wound packed and dressed as ordered. Minimal yellow colored drainage. Patient tolerated well.
--- NOTE | 2024-11-05 12:35 | PM.PN ---
Subjective Subjective: seen today had another conversation with pt regarding post-op wound care and IV antibiotics going forward pt agreeable and states that she will be compliant to antibiotics and wound care she states she needs this surgery and wanting to rid of infection . Denies any chest pain or shortness of breath at this time. Currently on a Precedex drip. I have discussed with nursing staff to wean that off. Vitals/I&O/Wt Last Vital Signs Temp 98.6 F 11/05/24 07:00 Pulse 58 L 11/05/24 12:01 Resp 13 11/05/24 12:01 BP 111/63 11/05/24 12:01 Pulse Ox 97 11/05/24 12:01 O2 Del Method Room Air 11/05/24 12:01 11/04/24 11/05/24 11/05/24 22:59 06:59 14:59 Intake Total 1362.734 / 1763.736 322.514 / 2086.250 1022.393 / 1022.393 Output Total 600 / 600 350 / 950 Balance 762.734 / 1163.736 -27.486 / 1021.982 8764.393 / 1022.393 Weight last 48 hrs Weight 64.5 kg Physical Exam Narrative: General: Alert oriented x 3 sitting up in bed. HEENT: PERRLA, pupils bilaterally equal and reactive, Chest: Normal vesicular breath sounds, no added sounds, equal good air entry bilaterally CVS: S1-S2 regular, no gross murmurs. Abdomen: Soft, nontender, bowel sounds present Neuro: No focal deficits grossly Extremities: stumps covered with bandage at this time. Urinary Catheter Management: Riojas: Cath Placed During This Visit: yes Reason for Continuing Indwelling Catheter: Accurate Measurement of Urinary Output in Critically Ill Patients Urinary Catheter Date of Insertion: 11/04/24 Urinary Catheter Time of Insertion: 16:00 Data 11/05/24 03:50 11/05/24 03:50 A&P Assessment and plan (1) Hypertension: Off Cardene drip, discontinue clonidine which can cause increase the risk of rebound hypertension, will use isosorbide mononitrate along amlodipine and metoprolol Qualifiers: Hypertension type: unspecified Qualified Code(s): I10 - Essential (primary) hypertension (2) Leukocytosis: Patient present with significant leukocytosis She has a extensive history of wounds Repeat blood work ordered for this morning Obtain inflammatory markers Check urinalysis Start oral antibiotics while awaiting above results (3) Chronic kidney disease: Worsening kidney function noted, patient endorsing voiding urine, Monitor kidney function for now Qualifiers: Chronic kidney disease stage: unspecified stage Qualified Code(s): N18.9 - Chronic kidney disease, unspecified (4) Psychosis: No acute decompensation (5) Knee swelling: Patient will need drainage of right knee fluid collection Will consult Dr. Salas orthopedics Patient already on antibiotics leukocytosis trending down, no active fever Plan DVT prophylaxis: Hold anticoagulating agent patient will need drainage of right knee 11/03/2024 Creatinine 2.7 today. Baseline 1.7-1.8. Patient does have an FIONA at this time. Etiology unknown however possibility of vancomycin induced? Vanc trough 10.5. Consult nephrology MRI bilateral lower extremity reviewed: Evidence of osteomyelitis. Orthopedic surgery consulted. Plan for amputation and debridement today. Please see Ortho note for details. Patient will require extensive wound care, IV antibiotics were at least 6 weeks going forward after surgery. Will refer to LTAC for possible transfer. Patient initially admitted with suicidal ideation. Will discuss with psychiatry regarding further plan. At this time she does not endorse suicidal ideation. Continue Dilaudid for pain. Continue Klonopin for anxiety. Revised cardiac risk index: Score 2 points, 10.1% risk for 30-day mortality. Placed on normal saline 75 cc/h. will check echo as part of pre-op clearance. Patient does have a history of coronary disease with history of stents and 2020 after [place], hypertension hyperlipidemia. She was supposed have a stress test scheduled in 2021 but I do not believe it ever got completed. Patient is not cleared for surgery yet 11/04/2024 Creatinine 3.1 today. Unsure etiology. Possible ATN?. Will stop vancomycin and switch to IV linezolid. Nephrology following. Appreciate recommendations. Renal ultrasound reviewed. Will await further recommendations for today. ? Patient requires amputation for source control secondary to osteomyelitis. We are currently in the process of obtaining cardiac clearance. ? Echo shows normal LV size with borderline low ejection fraction 52%. Moderate hypokinesis of basal inferior wall segment. ? Patient states that her last coronary angiogram was done at [facility] close to [place]. She does not remember the name of the hospital. She states she had stents placed about 3 years ago. ? We will be requesting records. ? Cardiology consulted for cardiac clearance. Plan for possible stress test in AM. ? If optimized from cardiology standpoint and okay to proceed to surgery tentatively plan for amputation with orthopedic surgery as soon as cleared from cardiology standpoint.. Will keep patient n.p.o. at midnight tonight for stress test in a.m. if patient is unable to tolerate stress testing cardiology has no plans of proceeding to angiogram given active FIONA at this time. We will await for further recommendations. ? Discussed with orthopedic surgery. Once patient optimized from cardiology standpoint we will proceed with surgery. Ortho recommendations appreciated. ? Consult infectious disease for antibiotic recommendations going forward. ? Patient will need LTAC versus skilled nursing placement after surgery for wound care and IV antibiotic administration. ? I had a conversation with patient on multiple occasions regarding proceeding with amputation to which she is agreeable to. Patient is not interested in going forward with wound care and continuing antibiotics. She has stated on various occasions that she has already tried that and knows where this is going to go and what will happen therefore she would like to proceed with amputation. Patient understands that she will need extensive wound care and a lot of care after surgery to ensure adequate healing of her surgical wounds. ? She does have back pain which is chronic. Will continue using Dilaudid 0.5 every 6 hours. I will add hydrocodone 5 mg every 4 hours as needed as well. ? Primary team is psychiatry. Medicine ID and orthopedic services are on consult. 11/05/2024 Discussed patient's cath results from [facility] with cardiology. Patient is chest pain-free and does not have any shortness of breath at this time. Patient not a candidate for angiogram secondary to FIONA. Cardiology has pleated preop evaluation. Patient okay to proceed to surgery with moderate to high acceptable risk at this time. Discussed with anesthesia as well. ? ID consulted for antibiotic guidance going forward. Will await for recommendations ? Patient will need extensive continued postop care, wound care, IV antibiotics to which she is agreeable to. ? I have had multiple discussions with patient regarding her behavior postop and she has assured me that she will comply. -Cr 2.6 today, improving - patient to go for surgery today afternoon. - NPO at this time. PDMP PDMP Reviewed: Not Reviewed Attestations Medical Necessity Statement*: plan for ortho surgical intervention today Diagnoses Hypertension, unspecified type I10 Hypertension type: unspecified Leukocytosis D72.829 Chronic kidney disease N18.9 Chronic kidney disease stage: unspecified stage Psychosis F29 Knee swelling M25.469
--- NOTE | 2024-11-05 13:14 | PC.OT ---
PATIENT CONTINUES TO REQUIRE SIGNIFICANT MEDICAL ATTENTION. WILL D/C OT ORDERS FOR NPU GROUPS. IF PATIENT RETURNS TO NPU WILL REQUEST NEW ORDERS AT THAT TIME.
--- NOTE | 2024-11-05 13:42 | PC.NURSE ---
Verbal order for 1mg dilaudid from Dr. Dahl.
--- NOTE | 2024-11-05 14:24 | P.NPUPN_ITS ---
Subjective NPU 2 Subjective: 44-year-old white female now in ICU admi tted with suicidal ideation. Patient appears to be better treated for pain and expressed interest in continuing with alf care placement after surgery over the next few weeks. She reports no suicidal thoughts. She reported good treatment of pain issues. Mental Status Exam 2 MSE Comments: This is an overweight white female in hospital scrubs with limited grooming and eye contact with notable below-knee amputation bilaterally lying in hospital bed. No abnormal involuntary motor movements were appreciated. She was?uncooperative with exam in no acute distress.? Speech was normal in rate , slurred and normal in volume. ? Mood described as okay.. Affect was less restricted. Thought process was linear and logical. Thought content: Patient denied suicidal ideation and denied homicidal ideation today. There was no evidence of delusional thinking. She denied auditory or visual hallucinations and did not appear to be responding to internal stimuli. Attention and concentration appeared better. Insight remained poor. Judgment was fair at this time. Impulse control remained guarded. Vitals/I&O/Wt Last Vital Signs Temp 97.6 F 11/05/24 14:00 Pulse 76 11/05/24 14:18 Resp 21 H 11/05/24 14:00 BP 157/81 11/05/24 14:00 Pulse Ox 98 11/05/24 14:00 O2 Del Method Room Air 11/05/24 14:00 11/04/24 11/05/24 11/05/24 22:59 06:59 14:59 Intake Total 1362.734 / 1763.736 322.514 / 2086.250 1333.830 / 1333.830 Output Total 600 / 600 350 / 950 Balance 762.734 / 1163.736 -27.486 / 9121.291 8996.830 / 1333.830 Weight last 48 hrs Weight 64.5 kg Physical Exam 2 Urinary Catheter Management: Riojas: Cath Placed During This Visit: yes Reason for Continuing Indwelling Catheter: Accurate Measurement of Urinary Output in Critically Ill Patients Urinary Catheter Date of Insertion: 11/04/24 Urinary Catheter Time of Insertion: 16:00 Data NPU 11/05/24 03:50 11/05/24 03:50 A&P Assessment and plan (1) Dysthymic disorder: (2) Suicidal ideation: (3) ALEJANDRO (generalized anxiety disorder): (4) Panic attacks: Plan 44 year old with multiple medical problems with history of depression, anxiety and borderline personality traits endorsing suicidal ideation with history of noncompliance with medications. Patient on CSU and appears better today. #1.? Engage patient in individual milieu and group therapy. #2?? Recommend sober living treatment at the highest level of care to which the patient is willing to commit #3??? Continue Klonopin .25mg bid,Continue seroquel 150mg at night, Continue Paxil 40mg daily. Patient would benefit from pain consult on an outpatient basis. #4?? TO-15 minute checks? #5?? Will attempt to gather collateral information PDMP PDMP Reviewed: Not Reviewed Involuntary Hold Information 2 96 Hour Hold: 96 Hour Involuntary Admission: No Attestations NPU 2 Medical Necessity Statement*: 44 year old with multiple medical proble ms with history of depression, anxiety and borderline personality traits endorsing suicidal ideation with history of noncompliance with medications. #1.? Engage patient in individual milieu and group therapy. #2?? Recommend sober living treatment at the highest level of care to which the patient is willing to commit #3??? Continue Klonopin .25mg bid,Continue seroquel 150mg at night, Continue Paxil 40mg at night with hold on any increase in paxil until Linezolid due to increase risk of serotonin syndrome. #4?? Patient agreeable to continued medical care. Involuntary hospitalization rescinded. Coding Level [facility] Care [facility] Dysthymic disorder F34.1 Suicidal ideation R45.851 ALEJANDRO (generalized anxiety disorder) F41.1 Panic attacks F41.0
--- NOTE | 2024-11-05 14:25 | ANES.PREANE2 ---
Pre-Anesthetic Assessment Height/Weight: Height 4 ft Weight 142 lb 3.17 oz Temp Pulse Resp BP Pulse Ox O2 Del Method 97.6 F 76 21 H 157/81 98 Room Air 11/05/24 14:00 11/05/24 14:18 11/05/24 14:00 11/05/24 14:00 11/05/24 14:00 11/05/24 14:00 Preop Diagnosis: Osteomyelitis of lower extremities Operation Date: 11/03/24 16:30 Proposed Procedures p Incision & Drainage Lower Extremity Debridement(Right) - Yaya Josue, DO s Below Knee Amputation revision(Left) - Yaya Josue, DO Operation Date: 11/05/24 14:30 Proposed Procedures p Incision & Drainage Lower Extremity Debridement(Right) - Yaya Catahoula, DO s Below Knee Amputation Revision-possible AKA(Left) - Yaya Josue, DO Was Beta Rozina taken within 24 hours: N/A Was Clonidine taken within 24 hours: N/A Last intake: Intake Last Liquid Date 11/06/24 Last Liquid Time 09:00 Last Solid Date 11/04/24 Last Solid Time 00:05 Social Tobacco and No alcohol Exam alert, oriented x 3, clear to auscultation bilaterally and regular rate & rhythm Airway Submandibular: within normal limits Cervical ROM: within normal limits Mallampati: Class II Comments: Comments: Multiple missing teeth, denies any loose Anesthetic Plan ASA status: 4 Anesthesia: General Other: No prior issues with anesthesia NPO since yesterday evening Patient admitted to the ICU for current suicidal ideation with concern of osteomyelitis of bilateral lower extremities Patient has been followed by cardiology and they states she is moderate risk for perioperative cardiac events. Atypical chest pain. Troponins have been elevated but this is thought to be secondary to demand ischemia Echo showing EF 52% with moderate hypokinesia of the basal layer inferior wall Patient has been followed by nephrology, FIONA noted Labs reviewed from today, leukocytosis trending downward. CR 2.6. Hemoglobin 8.6. Type and screen performed Plan for general anesthesia Medications/Allergies Home Medications ?Medication ?Instructions ?Recorded ?Confirmed ?Last Taken ?Type cyclobenzaprine 10 mg tablet 10 mg PO TID #30 tabs 06/03/24 11/02/24 Unknown Rx duloxetine 20 mg capsule,delayed 20 mg PO BID 30 days #60 caps 06/03/24 11/02/24 Unknown Rx release hydroxyzine pamoate 25 mg capsule 50 mg (2 x 25 mg) PO Q6H PRN 06/03/24 11/02/24 Unknown Rx Anxiety 30 days #120 caps pantoprazole 40 mg tablet,delayed 40 mg PO DAILY 30 days #30 tabs 06/03/24 11/02/24 Unknown Rx release paroxetine HCl 20 mg tablet 40 mg (2 x 20 mg) PO DAILY 30 days 06/03/24 11/02/24 Unknown Rx #60 tabs ropinirole 1 mg tablet 1 mg PO BEDTIME 30 days #30 tabs 06/03/24 11/02/24 Unknown Rx quetiapine 100 mg tablet 100 mg PO BEDTIME 09/13/24 11/02/24 Unknown History amlodipine 10 mg tablet 10 mg PO DAILY 11/01/24 11/01/24 Unknown History dicyclomine 10 mg capsule 10 mg PO QID 11/02/24 11/02/24 Unknown History Allergies Allergy/AdvReac Type Severity Reaction Status Date / Time morphine Allergy ALGY-Difficulty Verified 09/12/24 20:19 Breathing sulfamethoxazole (From Allergy ADR-Vomitin Verified 09/12/24 20:19 Bactrim) g trimethoprim (From Bactrim) Allergy ADR-Vomitin Verified 09/12/24 20:19 g Current Medications Generic Name Dose Route Start Last Admin Trade Name Ciriloq PRN Reason Stop Dose Admin Amlodipine Besylate 5 mg 11/04/24 09:00 11/05/24 10:14 Amlodipine 10 Mg Tablet PO Not Given DAILY [facility]SON Clonazepam 0.25 mg 11/01/24 20:00 11/05/24 09:07 Clonazepam 0.5 Mg Tablet PO 0.25 mg BID DAWSON Administration Hydromorphone HCl 1 mg 11/04/24 22:50 11/05/24 13:47 Hydromorphone 0.5 Mg/0.5 Ml Inj IVP 1 mg Q8H PRN Administration SEVERE PAIN Dexmedetomidine/Sodium Chloride 400 mcg in 100 mls @ 0 mls/hr 11/04/24 05:30 11/05/24 13:57 Precedex IV 0 mcg/kg/hr .Q0M DAWSON 0 mls/hr Titration Protocol Per Protocol Lactated Ringer's 1,000 mls @ 100 mls/hr 11/04/24 10:45 11/05/24 09:05 Lactated Ringers IV 100 mls/hr .Q10H [facility] Administration Linezolid 600 mg in 300 mls @ 300 mls/hr 11/04/24 12:30 11/05/24 13:14 Zyvox Premix IV Infused Q12H [facility] Infusion Protocol Insulin Human Lispro 0 unit 11/01/24 08:00 11/05/24 11:26 Insulin Lispro 100 Unit/1 Ml SUBCUT Not Given WM&BEDTIME [facility] Protocol Isosorbide Mononitrate 20 mg 11/02/24 09:00 11/05/24 09:08 Isosorbide Mononitrate 20 Mg Tablet PO 20 mg BID DAWSON Administration Metoprolol Tartrate 25 mg 11/02/24 09:00 11/05/24 10:14 Metoprolol Tartrate 25 Mg Tablet PO Not Given BID@0900,2100 [facility] Olanzapine 5 mg 11/01/24 01:52 11/05/24 04:52 Olanzapine 5 Mg Odt PO 5 mg Q4H PRN Administration Agitation/Psychosis Ondansetron HCl 4 mg 11/01/24 01:52 11/03/24 13:36 Ondansetron 4 Mg Tablet PO 4 mg Q6H PRN Administration NAUSEA AND VOMITING Oxycodone/Acetaminophen 1 tab 11/04/24 13:17 11/05/24 10:53 Oxycodone-Apap 5-325 Mg Tablet PO 1 tab Q4H PRN Administration MODERATE PAIN Paroxetine HCl 40 mg 11/05/24 09:00 11/05/24 09:07 Paroxetine 20 Mg Tablet PO 40 mg DAILY DAWSON Administration Additional Medication Information Current Medications Amlodipine Besylate (Amlodipine 10 Mg Tablet) 5 mg PO DAILY [facility] Last Admin: 11/05/24 10:14 Dose: Not Given Benztropine Mesylate (Benztropine 1 Mg Tablet) 1 mg PO BID PRN PRN Reason: Mild Extrapyramidal symptoms Camphor/Menthol/Phenol (Blistex Lip Oint 7 Gm Tube) 1 applic TOPICAL Q1H PRN PRN Reason: DRYNESS Clonazepam (Clonazepam 0.5 Mg Tablet) 0.25 mg PO BID [facility] Last Admin: 11/05/24 09:07 Dose: 0.25 mg Diphenhydramine HCl (Diphenhydramine 50 Mg/Ml Sdv 1ml) 50 mg IM ONCE PRN PRN Reason: Severe Extrapyramidal Symptoms Glucagon (Glucagon 1 Mg/Ml Kit 1 Ml) 1 mg IM ONCE PRN; Protocol PRN Reason: Adult Acute Hypoglycemia Nursing Prot. Hydralazine HCl (Hydralazine 20 Mg/Ml Inj 1 Ml) 10 mg IVP Q4H PRN PRN Reason: SBP>180mmHg or DBP>110mmHG Hydromorphone HCl (Hydromorphone 0.5 Mg/0.5 Ml Inj) 1 mg IVP Q8H PRN PRN Reason: SEVERE PAIN Last Admin: 11/05/24 09:09 Dose: 1 mg Dextrose (D5w) 500 mls @ 0 mls/hr IV ONCE PRN; Protocol PRN Reason: Adult Acute Hypoglycemia Prot Dextrose (D10w) 125 mls @ 750 mls/hr IV PRN PRN; Protocol PRN Reason: Adult Acute Hypoglycemia Nursing Protocol Dextrose (D10w) 250 mls @ 1,000 mls/hr IV PRN PRN; Protocol PRN Reason: Adult Acute Hypoglycemia Nursing Protocol Dexmedetomidine/Sodium Chloride (Precedex) 400 mcg in 100 mls @ 0 mls/hr IV .Q0M [facility]WSON; Protocol Last Titration: 11/05/24 10:07 Dose: 0.2 mcg/kg/hr, 3.29 mls/hr Lactated Ringer's (Lactated Ringers) 1,000 mls @ 100 mls/hr IV .Q10H [facility] Last Admin: 11/05/24 09:05 Dose: 100 mls/hr Linezolid (Zyvox Premix) 600 mg in 300 mls @ 300 mls/hr IV Q12H [facility]; Protocol Last Infusion: 11/05/24 03:11 Dose: Infused Insulin Human Lispro (Insulin Lispro 100 Unit/1 Ml) 0 unit SUBCUT WM&BEDTIME [facility]; Protocol Last Admin: 11/05/24 07:35 Dose: Not Given Isosorbide Mononitrate (Isosorbide Mononitrate 20 Mg Tablet) 20 mg PO BID [facility] Last Admin: 11/05/24 09:08 Dose: 20 mg Loperamide HCl (Loperamide 2 Mg Capsule) 2 mg PO Q6H PRN PRN Reason: DIARRHEA Metoprolol Tartrate (Metoprolol Tartrate 25 Mg Tablet) 25 mg PO BID@0900,2100 [facility] Last Admin: 11/05/24 10:14 Dose: Not Given Nicotine (Nicotine 21 Mg Patch) 1 patch TRANSDERMA DAILY PRN PRN Reason: NICOTINE WITHDRAWAL Nicotine Polacrilex (Nicotine 2 Mg Gum) 2 mg BUCCAL Q2H PRN PRN Reason: NICOTINE WITHDRAWAL Olanzapine (Olanzapine 5 Mg Odt) 5 mg PO Q4H PRN PRN Reason: Agitation/Psychosis Last Admin: 11/05/24 04:52 Dose: 5 mg Ondansetron HCl (Ondansetron 4 Mg Tablet) 4 mg PO Q6H PRN PRN Reason: NAUSEA AND VOMITING Last Admin: 11/03/24 13:36 Dose: 4 mg Oxycodone/Acetaminophen (Oxycodone-Apap 5-325 Mg Tablet) 1 tab PO Q4H PRN PRN Reason: MODERATE PAIN Last Admin: 11/05/24 02:15 Dose: 1 tab Paroxetine HCl (Paroxetine 20 Mg Tablet) 40 mg PO DAILY [facility] Last Admin: 11/05/24 09:07 Dose: 40 mg [facility] Anesthesia Medical History Acute kidney injury superimposed on CKD Type 1 diabetes mellitus with other skin ulcer Suicide attempt Urinary retention Septic prepatellar bursitis of left knee Chronic pain Hyperglycemia Anemia of chronic disease Insomnia GERD (gastroesophageal reflux disease) ALEJANDRO (generalized anxiety disorder) C. 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 CKD (chronic kidney disease) stage 2, GFR 60-89 ml/min baseline Cr is around 1.0 Diabetic foot ulcer s/p surgical intervention and eventual amputation Hyperlipidemia Coronary artery disease hx of stenting Diabetic gastroparesis Diabetes mellitus type 1 diagnosed age 15, history of peripheral neuropathy, gastroparesis and nephropathy Surgical History Hx of angioplasty H/O esophagogastroduodenoscopy (12/31/20) Bile reflux gastritis, grade B esophagitis Hx of cholecystectomy History of amputation of right forefoot Below-knee amputation of left lower extremity S/P percutaneous endoscopic gastrostomy (PEG) tube placement H/O exploratory laparotomy x 3 Previous section x 3 S/P coronary artery stent placement x 1 Family History Unknown Diabetes extensive, type II Other Congestive heart failure (CHF) Social History Smoking and tobacco/nicotine status: former use of tobacco/nicotine Quit status (tobacco/nicotine): has quit using Former quit date comment: 15 yrs ago Alcohol intake: former Former alcohol use details: 15 yrs ago Substance/Drug Use: current Substance/Drug use frequency: daily Household members: spouse Marital status: Current occupation: disabled Sexually active: Yes (1, ) Female Reproductive History Spontaneous abortions: No Data Anesthesia 11/05/24 03:50 11/05/24 03:50 Short CBC 11/04/24 11/05/24 Range/Units 05:04 03:50 WBC 8.32 5.61 (3.29-11.43) 10^3/uL Hgb 8.80 L 8.60 L (11.27-16.99) g/dL Hct 28.1 L 27.9 L (36-47) % MCV 90.6 90.9 (85-98) fl Plt Count 456 H 402 H (157-399) 10^3/cmm Neut % (Auto) 80.5 67.3 % Neut # (Auto) 6.70 3.77 (1.8-7.7) 10^3/uL BMP 11/04/24 11/05/24 05:04 03:50 Sodium 137 137 Potassium 3.6 3.7 Chloride 103 104 Carbon Dioxide 19 L 21 L BUN 40 H 35 H Creatinine 3.1 H 2.6 H Glucose 145 H 155 H Calcium 9.0 8.6 Cardiac Enzymes 11/03/24 11/04/24 11/04/24 Range/Units 17:17 10:47 12:46 Creatine Kinase 115 (26-192) U/L Troponin T Baseline 59 H (0-10) ng/L Troponin T 120 Minute 60.38 H (0-10) ng/L Delta Troponin T 1.38 (0-10) ABS# Troponin T Hi Sens 6Hr (0-10) ng/L Troponin T Hi Sens 6Hr Delta (0-12) ng/L 11/04/24 Range/Units 16:31 Creatine Kinase (26-192) U/L Troponin T Baseline (0-10) ng/L Troponin T 120 Minute (0-10) ng/L Delta Troponin T (0-10) ABS# Troponin T Hi Sens 6Hr 58.47 H (0-10) ng/L Troponin T Hi Sens 6Hr Delta -0.53 L (0-12) ng/L Liver Function 11/04/24 11/05/24 Range/Units 05:04 03:50 Total Bilirubin 0.2 0.2 (0.15-1.2) mg/dL AST 10 8 (0-32) U/L ALT < 5 < 5 (0-33) U/L Alkaline Phosphatase 200 H 196 H (35-105) U/L Albumin 3.3 L 2.9 L (3.5-5.2) g/dL Cardiac Studies: Echocardiogram 11/03/24
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
[2024-11-05 14:46] LABS: INR 0.84 (0.8-1.2)
--- NOTE | 2024-11-05 15:19 | W.PM.OPSUD ---
Surgery/Procedure H&P Update DATE OF PROCEDURE: November 05, 2024 DATE H&P PERFORMED: 11/02/24 H&P UPDATE INFORMATION: I have reviewed H&P completed within last 30 days, I have examined patient prior to procedure and No changes to prior documentation PREOP DIAGNOSIS: Osteomyelitis of left below the knee amputation, right knee septic prepatel PRIMARY INDICATION FOR PROCEDURE: Osteomyelitis left below the knee amputation, right knee septic prepatellar bursitis PLANNED PROCEDURE: Operation Date: 11/03/24 16:30 Proposed Procedures p Incision & Drainage Lower Extremity Debridement(Right) - Yaya Salas DO s Below Knee Amputation revision(Left) - Yaya Salas DO Operation Date: 11/05/24 14:30 Proposed Procedures p Incision & Drainage Lower Extremity Debridement(Right) - Yaya Salas DO s Below Knee Amputation Revision-possible AKA(Left) - Yaya Salas DO
[2024-11-05] MEDS: ceFAZolin 2,000 mg SDV 2000 MG IVP ×2 (15:26→16:58)
[2024-11-05 15:59] LABS: Anti-Nuclear Antibody Screen NEGATIVE (NEGATIVE)
--- NOTE | 2024-11-05 16:30 | PC.NURSE ---
Patient in care of OR team at this time.
[2024-11-05] MEDS: tranexamic acid 1,000 mg/10mL SDV 1000 MG IV (16:58)
[2024-11-05] MEDS: lidocaine 1% 10 ML INJ 20 ML INJECTION (17:02)
[2024-11-05] MEDS: VANCOMYCIN ADD-Vantage 1,000 MG VIAL 2000 MG (17:02)
--- NOTE | 2024-11-05 18:27 | W.PM.BPON ---
Date of Procedure: 11/05/2024 Surgeon: Yaya Salas DO Antisqueak Chalker(s): None Procedure(s) performed: Right knee prepatellar bursal abscess irrigation and debridement and excision Left sjeho-yrr-dwqq amputation Findings of the procedure(s): Patient was found to have a large appearing septic prepatellar bursal abscess on the right knee underwent I&D and excision of the bursa without issues or complications. Patient then subsequently was plan for revision below the knee amputation however upon evaluation of the bone and soft tissue envelope patient had infection in the bone all the way up proximal the tibial tubercle and as a result decision was made to move to [id number]-afn-[id number] amputation to make sure we are clear of infection margins. Patient underwent a left rtrol-eac-ilxf amputation without issues or complications. Given patient's blood loss and starting hemoglobin of only 8.6 as well as some heart/cardiac history went ahead and gave patient 1 unit PRBC intraoperatively. Patient taken back to ICU in stable condition Estimated blood loss: 350 mL Specimen(s) removed: Cultures aerobic anaerobic of right knee prepatellar bursal abscess as well as specimen sent at the prepatellar bursal abscess that was excised, cultures as well as specimen for the left below the knee stump from the left AKA stump was sent for cultures and pathology Post-operative diagnosis: Infected left below the knee amputation with abscess and osteomyelitis, right knee septic prepatellar bursitis
--- NOTE | 2024-11-05 18:30 | P.OP_ITS ---
Operative Report Date of procedure: November 05, 2024 Pre-op diagnosis: Osteomyelitis left below the knee amputation, right knee septic prepatellar bursitis Post-op diagnosis: Infected left below the knee amputation with abscess and osteomyelitis, right knee septic prepatellar bursitis Post-op findings: See operative report narrative Procedure done: Right knee prepatellar bursal abscess irrigation and debridement and excision (10cm x 5cm x 4cm) Left [id number] amputation Left AKA adductor myodesis Specimens removed/disposition: Cultures aerobic anaerobic of right knee prepatellar bursal abscess as well as specimen sent at the prepatellar bursal abscess that was excised, cultures as well as specimen for the left below the knee stump from the left AKA stump was sent for cultures and pathology Pathology: Cultures aerobic anaerobic of right knee prepatellar bursal abscess as well as specimen sent at the prepatellar bursal abscess that was excised, cultures as well as specimen for the left below the knee stump from the left AKA stump was sent for cultures and pathology Surgeon: Yaya Salas DO Anesthesia: General Estimated blood loss: 350mL Right-15mins Left -47mins IV fluids: 1100 mL Urine output: 400 mL Complications: 350 mL of blood loss as well as patient starting with hemoglobin of 8 went ahead and ordered and was giving 1 unit PRBC intraoperatively Findings: See operative report narrative Condition: stable Disposition: ICU Brief History: Patient is a 44-year-old female with a complex past medical history has chronic osteomyelitis with open draining wound of the left below the knee amputation and a septic prepatellar bursitis on the right knee which she has a right below the knee amputation on that side as well. Patient Maya presented with a sepsis picture. She does have history of psychosis and suicidal ideations. She also has history of being noncompliant and walking on her amputation sites causing possible wound issues which I do feel as though this is likely the cause of her current predicament with a septic prepatellar bursitis on the right and chronic draining wound with probing to bone and consistent with chronic osteomyelitis of the left below the knee amputation. We talked about all of her options in detail as far as nonoperative and operative invention she understands the ins and outs procedure the risk benefits complication alternatives to surgery. Understanding risk of surgery she elects proceed with surgical intervention all questions have been answered at this time. She does understand the importance of adherence to restrictions and importance of compliance with nonweightbearing to the stump to allow for the incision sites to heal. Understanding this and talked about with her they like to proceed with surgical intervention she is now been medically optimized through the hospitalist team and cardiology and ready pursue surgical intervention all questions answered at this time. Procedure: Patient was seen evaluated. In ICU prior to going to the OR. We reviewed and signed consent with patient as well as . Correct extremities were then subsequently marked and preplanned incision sites were made patient once again we talked about procedure in detail she understands and agrees to proceed and consent was reviewed and signed with patient. At this point in time patient was then seen evaluated by anesthesia once cleared for surgery was brought back from the ICU directly to the OR. Patient was transported onto the OR table all bony promises well-padded patient was appropriate secured to the bed. Patient then subsequently underwent anesthesia per the anesthesia part was prepped anesthetized nonsterile tourniquet was applied to the bilateral lower extr emities. Patient's bilateral lower extremities were then prepped and draped in orthopedic fashion. Final timeout performed. Patient received appropriate perioperative antibiotics that she was given antibiotics in the form. Esmarch tourniquet was used exsanguinate the right lower extremity and tourniquet was insufflated 250 mmHg. Patient had a large septic appearing prepatellar bursitis of the right knee. At this point in time this was a large bursitis. A direct anterior midline incision was made on the right BKA stump over the prepatellar bursal area. Sharp scalpel incision was made through skin and subcutaneous tissue came down directly over the prepatellar bursa. I did poke the bursal cyst and obtain cultures from this and then subsequently dissected out the entirety of the burs al sac and excised this with electrocautery. The entire space that was debrided was 10 cm x 5 cm x 4 cm. This was then the bursal was excised and sent for pathology as well. I then evaluated there is no deep extend into the joint line and the retinaculum and extensor mechanism was intact. At this point in time this completed the I&D and bursal excision and subsequent tourniquet down hemostasis satisfactory I then subsequently thoroughly irrigated the wound bed. This was then closed in standard layered fashion and reapproximated the skin edges with jose carlos. I utilized a 4 x 4's folded for pressure dressing and Miguel A wrap was then applied. Next my attention turned towards the left lower extremity BKA stump. Left lower extremity tourniquet insufflated 250 mmHg. As talked about with the patient and reviewed on MRI the osteomyelitis extended residential up the bone as there is only roughly 12 to 14 cm of bone left in the osteomyelitis extended roughly up to 7 cm. As a result I utilized a fishmouth incision to start with a left below the knee amputation stump revision sharp scalpel incision was made through skin and subcutaneous tissue I then dissected directly over the tibial tubercle utilized electrocautery to maintain hemostasis. At this point in time I then dissected out the anterior compartment vasculature clamped this with a hemostat and then utilized a Lyle elevator to mobilize underneath the tibia. I measured this out and cut this type roughly 8 cm to make sure we are outside of the osteomyelitis margins on MRI. Unfortunately patient had extremely soft bone and mushy intramedullary continence with murky discoloration consistent with osteomyelitis in this site which was already involving the extensor mechanism. At this point in time evaluation of the entirety of the below the knee potation tissue significant edematous tissue the musculature was pale and pink and minimally reactive as well as soft tissue infection within the side I did obtain cultures of the abscess around the stump as well. At this point in time as I talked about with the patient given this did not appear to have good quality tissue and was already needing to go higher BKA disrupting extensor mechanism this unfortunately rendered the high BKA revision not an option as a result a transition to performing a left szjee-gnp-fuik amputation. Standard 3 fingerbreadth was made above the superior pole the patella standard fishmouth [id number] amputation incision was then made sharp scalpel incision was made through skin and subcutaneous tissue maintaining hemostasis throughout my dissection with electrocautery. I identified the saphenous and clamp this with hemostat and tied this with a stick tie. I then cut down through the extensor mechanism and quad tendon the quad tendon and musculature in this area was red reactive and healthy bleeding consistent being outside of the zone of infection. At this point in time I came down directly over the femur and then cut 3 cm rou ghly proximal to my skin incision I mobilized periosteum and then subsequently utilized a Lyle elevator to release fascia underneath the femur and then slid a Hohmann underneath for protection. My electrician station assistant held this while a oscillating saw was used to resect the femur. This had good quality bone and then subsequently utilized an amputation knife to excise the rest of the soft tissue leaving a muscle belly and skin flap with my fishmouth incision. This was then excised and sent for final specimen cultures. At this point in time I then identified the sciatic nerve and then subsequently injected this with lidocaine placed this under traction and excised this. Identified the neurovascular bundles and then tied these off with multiple silk ties. I then debrided the musculature and debulked the flaps to allow for accommodating closure. At this point time thorough irrigation performed I then subsequently let down the tourniquet hemostasis was satisfactory with stick ties and electrocautery. At this point in time my plan was for an adductor myodesis I then subsequently utilized a looped #1 PDS suture and then utilizing bone tunnels performed an adductor myodesis of the adductor musculature and fascia to bring this over the distal stump as well as to keep appropriate tension on the musculature balancing. Once this was then tied off and completed I then placed vancomycin powder in the wound bed for antibiotic infection prophylaxis. And then subsequently closed this in layered fashion bringing up the posterior musculature hamstring flap to the quad tendon fascia flap this was closed with #1 strata fix and then 2 oh STRATAFIX. Skin edges were reapproximated with jose carlos. Xeroform was placed over the incision 4 x 4's ABD Curlex Miguel A wrap and foam tape was used to secure the dressing around the AKA stump. Patient was then awakened from anesthesia and taken back to PACU in stable condition. Intraoperatively patient had lost roughly about 350 mL of blood but to proced ures and given the lower starting hemoglobin in the eights and cardiac history and workup we went ahead and gave her 1 unit of PRBC as I anticipated her dipping below 8 intraoperatively. She was taken back to ICU in stable condition from the anesthesia team. was updated on intraoperative findings understood and agrees with current plan. All questions answered. Will update patient tomorrow when she is more awake. Disposition: Patient taken back to ICU in stable condition received 1 unit of blood intraoperatively dressings on in place orthopedics will change on postoperative day 3. Continue antibiotics per primary team orthopedics will continue to follow.
--- NOTE | 2024-11-05 18:51 | ANE.PACU2 ---
Inpatient post-anesthesia follow up: Airway intact: Yes Vital signs: Temperature 98.7 F Pulse Rate 66 Respiratory Rate 18 Blood Pressure 119/68 Pulse Oximetry 98 Oxygen Delivery Me thod Room Air Oxygen Flow Rate Fraction of Inspir ed Oxygen Hydration adequate: Yes Nausea and vomiting: No Pain level: 1 Mental status: Baseline
--- NOTE | 2024-11-05 18:54 | PC.NURSE ---
Patient back to ICU 4 at 1849.
[2024-11-05 19:24] LABS: Glucose Point of Care 151 mg/dL (70-110); Glucose Point of Care 161 mg/dL (70-110)
[2024-11-05] MEDS: insulin lispro 100 unit/1 mL SUBCUT ×2 (19:43→21:34)
[2024-11-05] MEDS: OLANZapine 10 mg VIAL IM (20:53)
[2024-11-05 21:30] LABS: Glucose Point of Care 197 mg/dL (70-110)
[2024-11-05] MEDS: metoprolol tartrate 25 mg Tablet PO (21:34)
--- NOTE | 2024-11-05 21:45 | PC.NURSE ---
Pt restless, crying, hitting herself in the head. Dr. Gonzalez notified. Received telephone order for zyprexa 10 mg IM @ 2029 and precedex gtt @ 3.
[2024-11-06] VITALS (53 sets, daily range): BP systolic 109–185; BP diastolic 65–136; PULSE 60–96; RESP 6–27; TEMP 36.8–37.1; O2SAT 95–100
[2024-11-06] MEDS: HYDROmorphone 0.5 MG/0.5 ML INJ 1 MG IVP ×5 (00:59→20:34)
[2024-11-06] MEDS: lactated ringers 1,000 ML 100 ML IV (03:17)
[2024-11-06] MEDS: ceFAZolin 2,000 mg SDV 2000 MG IVP ×2 (03:17→16:01)
[2024-11-06] MEDS: oxyCODONE-APAP 5-325 mg Tablet 1 TAB PO ×4 (04:02→18:53)
[2024-11-06 04:35] LABS: Basophils % 0.2 %; Hematocrit 25.4 % (36-47); Lymphocytes # 0.6 10^3/uL (0.8-4.8); Lymphocytes % 5.3 %; Mean Corpuscular HGB Conc 32.3 g/dL (30-55); Mean Corpuscular Hemoglobin 28.8 pg (27-33); Mean Corpuscular Volume 89.1 fl (85-98); Mean Platelet Volume 8.4 fL (7.4-10.4); Monocytes # 0.3 10^3/uL (0.2-0.9); Monocytes % 2.7 %; Neutrophils # 9.49 10^3/uL (1.8-7.7); Neutrophils % 90.8 %; Nucleated Red Blood Cells % 0 %; Platelet Count 373 10^3/cmm (157-399); Red Blood Count 2.85 10^6/uL (3.85-5.65); Red Cell Distribution Width 13.8 % (12.1-15.1); White Blood Count 10.44 10^3/uL (3.29-11.43)
[2024-11-06 05:00] LABS: Alanine Aminotransferase < 5 U/L (0-33); Albumin Level 3.2 g/dL (3.5-5.2); Alkaline Phosphatase 162 U/L (35-105); Anion Gap 14.3 (5-19); Aspartate Amino Transferase 15 U/L (0-32); Blood Urea Nitrogen 27 mg/dL (6-20); Calcium 8.4 mg/dL (8.5-10.5); Carbon Dioxide 23 mmol/L (22-29); Chloride 105 mmol/L (98-107); Globulin 3.3 g/dL (1.3-4.6); Glomerular Filtration Rate 22.8 mL/min (90-130); Glucose 152 mg/dL (65-115); Magnesium 1.7 mg/dL (1.7-2.3); Osmolality Calculated 294 mOsm/kg (285-295); Phosphorus 4.1 mg/dL (2.5-4.5); Potassium 4.3 mmol/L (3.5-5.1); Sodium 138 mmol/L (136-145); Total Bilirubin 0.2 mg/dL (0.15-1.2); Total Protein 6.5 g/dL (6.6-8.7)
[2024-11-06] MEDS: dexmedeTOMIDine 0.9 % NaCL 400 MCG/100 ML PREMIX 8.06 MCG IV (06:56)
[2024-11-06 07:57] LABS: Glucose Point of Care 246 mg/dL (70-110)
[2024-11-06] MEDS: PARoxetine 20 mg Tablet 40 MG PO (08:14)
[2024-11-06] MEDS: isosorbide mononitrate 20 mg Tablet PO ×2 (08:14→18:53)
[2024-11-06] MEDS: metoprolol tartrate 25 mg Tablet PO ×2 (08:15→21:36)
[2024-11-06] MEDS: insulin lispro 100 unit/1 mL SUBCUT ×2 (08:15→21:04)
--- NOTE | 2024-11-06 08:58 | PM.PN ---
Subjective Subjective: The patient was seen and examined. The patient is status post right BKA debridement left sided AKA. She is not on any pressors. She feels well she has no nausea vomiting fevers chills itching cramp or diarrhea. Medications: Reviewed: Yes Medication Review Details: Current Medications Amlodipine Besylate (Amlodipine 10 Mg Tablet) 5 mg PO DAILY DAWSON Last Admin: 11/05/24 10:14 Dose: Not Given Camphor/Menthol/Phenol (Blistex Lip Oint 7 Gm Tube) 1 applic TOPICAL Q1H PRN PRN Reason: DRYNESS Cefazolin Sodium (Cefazolin 2,000 Mg Sdv) 2,000 mg IVP Q12H DAWSON; Protocol Last Admin: 11/06/24 03:17 Dose: 2,000 mg Glucagon (Glucagon 1 Mg/Ml Kit 1 Ml) 1 mg IM ONCE PRN; Protocol PRN Reason: Adult Acute Hypoglycemia Nursing Prot. Hydralazine HCl (Hydralazine 20 Mg/Ml Inj 1 Ml) 10 mg IVP Q4H PRN PRN Reason: SBP>180mmHg or DBP>110mmHG Hydromorphone HCl (Hydromorphone 0.5 Mg/0.5 Ml Inj) 1 mg IVP Q6H PRN PRN Reason: SEVERE PAIN Last Admin: 11/06/24 06:55 Dose: 1 mg Dextrose (D5w) 500 mls @ 0 mls/hr IV ONCE PRN; Protocol PRN Reason: Adult Acute Hypoglycemia Prot Dextrose (D10w) 125 mls @ 750 mls/hr IV PRN PRN; Protocol PRN Reason: Adult Acute Hypoglycemia Nursing Protocol Dextrose (D10w) 250 mls @ 1,000 mls/hr IV PRN PRN; Protocol PRN Reason: Adult Acute Hypoglycemia Nursing Protocol Lactated Ringer's (Lactated Ringers) 1,000 mls @ 100 mls/hr IV .Q10H DAWSON Last Admin: 11/06/24 03:17 Dose: 100 mls/hr Dexmedetomidine/Sodium Chloride (Precedex) 400 mcg in 100 mls @ 0 mls/hr IV .Q0M DAWSON; Protocol Last Admin: 11/06/24 06:56 Dose: 0.5 mcg/kg/hr, 8.06 mls/hr Insulin Human Lispro (Insulin Lispro 100 Unit/1 Ml) 0 unit SUBCUT WM&BEDTIME [facility]; Protocol Last Admin: 11/06/24 08:15 Dose: 6 unit Isosorbide Mononitrate (Isosorbide Mononitrate 20 Mg Tablet) 20 mg PO BID [facility] Last Admin: 11/06/24 08:14 Dose: 20 mg Loperamide HCl (Loperamide 2 Mg Capsule) 2 mg PO Q6H PRN PRN Reason: DIARRHEA Metoprolol Tartrate (Metoprolol Tartrate 25 Mg Tablet) 25 mg PO BID@0900,2100 [facility] Last Admin: 11/06/24 08:15 Dose: 25 mg Nicotine (Nicotine 21 Mg Patch) 1 patch TRANSDERMA DAILY PRN PRN Reason: NICOTINE WITHDRAWAL Nicotine Polacrilex (Nicotine 2 Mg Gum) 2 mg BUCCAL Q2H PRN PRN Reason: NICOTINE WITHDRAWAL Olanzapine (Olanzapine 10 Mg Vial) 10 mg IM Q12H PRN PRN Reason: SEVERE AGITATION Last Admin: 11/05/24 20:53 Dose: 10 mg Ondansetron HCl (Ondansetron 4 Mg Tablet) 4 mg PO Q6H PRN PRN Reason: NAUSEA AND VOMITING Last Admin: 11/03/24 13:36 Dose: 4 mg Oxycodone/Acetaminophen (Oxycodone-Apap 5-325 Mg Tablet) 1 tab PO Q4H PRN PRN Reason: MODERATE PAIN Last Admin: 11/06/24 04:02 Dose: 1 tab Paroxetine HCl (Paroxetine 20 Mg Tablet) 40 mg PO DAILY [facility] Last Admin: 11/06/24 08:14 Dose: 40 mg Sodium Chloride (Sodium Chloride 0.9% 100 Ml Bag) 50 ml IV PRN PRN PRN Reason: Blood transfusion prime and flush Stop: 11/06/24 17:38 Vitals/I&O/Wt Last Vital Signs Temp 98.7 F 11/06/24 04:00 Pulse 66 11/06/24 06:00 Resp 14 11/06/24 06:00 BP 119/68 11/06/24 06:00 Pulse Ox 97 11/06/24 06:00 O2 Del Method Room Air 11/06/24 06:00 11/05/24 11/06/24 11/06/24 22:59 06:59 14:59 Intake Total 650.886 / 4624.024 6947.114 / 3263.830 Output Total 500 / 500 Balance 650.886 / 1984.716 779.114 / 2763.830 Weight last 48 hrs Weight 64.365 kg Weight 64.5 kg Physical Exam Narrative: Vital signs noted. Comfortable sitting in a chair no apparent distress. HEENT normocephalic atraumatic. Neck is supple no JVP. Lungs -clear b/l Heart is regular positive S1-S2. Abdomen is soft nontender nondistended positive bowel sounds. Extremities RT BKA bandaged, Left AKA bandaged Neuro awake alert oriented x 3 , moves Urinary Catheter Management: Riojas: Cath Placed During This Visit: yes Reason for Continuing Indwelling Catheter: Accurate Measurement of Urinary Output in Critically Ill Patients Urinary Catheter Date of Insertion: 11/04/24 Urinary Catheter Time of Insertion: 16:00 Data 11/06/24 04:05 11/06/24 04:05 Micro: Microbiology 11/06/24 04:05 Blood Culture - Preliminary Blood SPECIMEN COLLECTED 11/06/24 04:00 Blood Culture - Preliminary Blood SPECIMEN COLLECTED A&P Assessment and plan (1) Acute kidney injury superimposed on CKD: 44-year-old lady with IDDM, peripheral vascular disease status post bilateral BKA's here with stump infection. 1. Patient has CKD baseline creatinine approximately 1.5 mg/dL likely due to diabetes. pth 120- repeat in 4-6 weeks 2. Acute kidney injury: Urinalysis reviewed has 4+ protein. 1+ blood. Patient has had 3+ protein in her urine for over 2 years. Currently her urinalysis also has significant granular casts can be consistent with ATN. Creatinine and urine output improving with IV fluids. Patient's urine sodium was 30 with a chloride of 18 urine creatinine of 160. Continue to monitor and IV fluids. -normal CPK. -normal complements. - Avoid NSAIDs. -Most likely FIONA is from prerenal azotemia versus ATN -Monitor vancomycin level keep trough under 19. Vancomycin level was 21.5 on - -It appears that vanco was stopped and she is now on cefazolin - bladder scan w/ 450 ml monitor. She states she is urinating -d/c ivf 3. anemia-patient has a ferritin of 1385 and a 19% saturation. No need for IV iron. Epogen is not effective with acute kidney injury will monitor 4. She is status post a right BKA debridement and left AKA surgery. Further as per orthopedics and vascular. 5. Leukocytosis is improving. 6. Blood pressure well-controlled with medications The patient was seen and examined using audiovisual equipment with the aid of a nurse. The patient consented to telehealth. Plan See above. PDMP PDMP Reviewed: Not Reviewed Attestations Medical Necessity Statement*: per medicine for BKa INFECTION Time Spent in Patient Care: 16 - 35 minutes Coding Level of Care Code Acute Code for g Fwd Diagnoses Acute kidney injury superimposed on CKD N17.9; N18.9
[2024-11-06] MEDS: amlodipine 5 mg Tablet 2.5 MG PO (11:16)
[2024-11-06 12:46] LABS: Glucose Point of Care 159 mg/dL (70-110)
[2024-11-06 12:48] LABS: Glucose Point of Care 122 mg/dL (70-110)
--- NOTE | 2024-11-06 14:19 | P.PN_ITS ---
Subjective 2 Subjective: seen this morning on precedex drip complaining of pain surgical bandage in place with CRUZ wraps Vitals/I&O/Wt Last Vital Signs Temp 98.4 F 11/06/24 08:01 Pulse 64 11/06/24 11:00 Resp 21 H 11/06/24 13:57 BP 129/76 11/06/24 11:00 Pulse Ox 98 11/06/24 13:57 O2 Del Method Room Air 11/06/24 11:00 11/05/24 11/06/24 11/06/24 22:59 06:59 14:59 Intake Total 650.886 / 8524.326 4944.114 / 3263.830 1074.285 / 1074.285 Output Total 500 / 500 175 / 175 Balance 650.886 / 1983.716 779.114 / 2763.830 899.285 / 899.285 Weight last 48 hrs Weight 64.365 kg Weight 64.5 kg Physical Exam 2 Narrative: General: Alert oriented x 3 sitting up in bed. HEENT: PERRLA, pupils bilaterally equal and reactive, Chest: Normal vesicular breath sounds, no added sounds, equal good air entry bilaterally CVS: S1-S2 regular, no gross murmurs. Abdomen: Soft, nontender, bowel sounds present Neuro: No focal deficits grossly Extremities: stumps covered with bandage at this time. Urinary Catheter Management: Riojas: Cath Placed During This Visit: yes Reason for Continuing Indwelling Catheter: Accurate Measurement of Urinary Output in Critically Ill Patients Urinary Catheter Date of Insertion: 11/04/24 Urinary Catheter Time of Insertion: 16:00 Data 11/06/24 04:05 11/06/24 04:05 Micro: Microbiology 11/05/24 17:28 Gram Stain - Final Knee - Left Abscess Culture - Preliminary 11/05/24 17:02 Gram Stain - Final Knee - Right Abscess Culture - Preliminary 11/06/24 04:05 Blood Culture - Preliminary Blood SPECIMEN COLLECTED 11/06/24 04:00 Blood Culture - Preliminary Blood SPECIMEN COLLECTED A&P Assessment and plan (1) Hypertension: Off Cardene drip, discontinue clonidine which can cause increase the risk of rebound hypertension, will use isosorbide mononitrate along amlodipine and metoprolol Qualifiers: Hypertension type: unspecified Qualified Code(s): I10 - Essential (primary) hypertension (2) Leukocytosis: Patient present with significant leukocytosis She has a extensive history of wounds Repeat blood work ordered for this morning Obtain inflammatory markers Check urinalysis Start oral antibiotics while awaiting above results (3) Chronic kidney disease: Worsening kidney function noted, patient endorsing voiding urine, Monitor kidney function for now Qualifiers: Chronic kidney disease stage: unspecified stage Qualified Code(s): N 18.9 - Chronic kidney disease, unspecified (4) Psychosis: No acute decompensation (5) Knee swelling: Patient will need drainage of right knee fluid collection Will consult Dr. Salas orthopedics Patient already on antibiotics leukocytosis trending down, no active fever Plan DVT prophylaxis: Hold anticoagulating agent patient will need drainage of right knee 11/03/2024 Creatinine 2.7 today. Baseline 1.7-1.8. Patient does have an FIONA at this time. Etiology unknown however possibility of vancomycin induced? Vanc trough 10.5. Consult nephrology MRI bilateral lower extremity reviewed: Evidence of osteomyelitis. Orthopedic surgery consulted. Plan for amputation and debridement today. Please see Ortho note for details. Patient will require extensive wound care, IV antibiotics were at least 6 weeks going forward after surgery. Will refer to LTAC for possible transfer. Patient initially admitted with suicidal ideation. Will discuss with psychiatry regarding further plan. At this time she does not endorse suicidal ideation. Continue Dilaudid for pain. Continue Klonopin for anxiety. Revised cardiac risk index: Score 2 points, 10.1% risk for 30-day mortality. Placed on normal saline 75 cc/h. will check echo as part of pre-op clearance. Patient does have a history of coronary disease with history of stents and 2020 after [place], hypertension hyperlipidemia. She was supposed have a stress test scheduled in 2021 but I do not believe it ever got completed. Patient is not cleared for surgery yet 11/04/2024 Creatinine 3.1 today. Unsure etiology. Possible ATN?. Will stop vancomycin and switch to IV linezolid. Nephrology following. Appreciate recommendations. Renal ultrasound reviewed. Will await further recommendations for today. ? Patient requires amputation for source control secondary to osteomyelitis. We are currently in the process of obtaining cardiac clearance. ? Echo shows normal LV size with borderline low ejection fraction 52%. Moderate hypokinesis of basal inferior wall segment. ? Patient states that her last coronary angiogram was done at [facility] close to [place]. She does not remember the name of the hospital. She states she had stents placed about 3 years ago. ? We will be requesting records. ? Cardiology consulted for cardiac clearance. Plan for possible stress test in AM. ? If optimized from cardiology standpoint and okay to proceed to surgery tentatively plan for amputation with orthopedic surgery as soon as cleared from cardiology standpoint.. Will keep patient n.p.o. at midnight tonight for stress test in a.m. if patient is unable to tolerate stress testing cardiology has no plans of proceeding to angiogram given active FIONA at this time. We will await for further recommendations. ? Discussed with orthopedic surgery. Once patient optimized from cardiology standpoint we will proceed with surgery. Ortho recommendations appreciated. ? Consult infectious disease for antibiotic recommendations going forward. ? Patient will need [facility] versus [facility] after surgery for wound care and IV antibiotic administration. ? I had a conversation with patient on multiple occasions regarding proceeding with amputation to which she is agreeable to. Patient is not interested in going forward with wound care and continuing antibiotics. She has stated on various occasions that she has already tried that and knows where this is going to go and what will happen therefore she would like to proceed with amputation. Patient understands that she will need extensive wound care and a lot of care after surgery to ensure adequate healing of her surgical wounds. ? She does have back pain which is chronic. Will continue using Dilaudid 0.5 every 6 hours. I will add hydrocodone 5 mg every 4 hours as needed as well. ? Primary team is psychiatry. Medicine ID and orthopedic services are on consult. 11/05/2024 Discussed patient's cath results from [facility] with cardiology. Patient is chest pain-free and does not have any shortness of breath at this time. Patient not a candidate for angiogram secondary to FIONA. Cardiology has pleated preop evaluation. Patient okay to proceed to surgery with moderate to high acceptable risk at this time. Discussed with anesthesia as well. ? ID consulted for antibiotic guidance going forward. Will await for recommendations ? Patient will need extensive continued postop care, wound care, IV antibiotics to which she is agreeable to. ? I have had multiple discussions with patient regarding her behavior postop and she has assured me that she will comply. -Cr 2.6 today, improving - patient to go for surgery today afternoon. - NPO at this time. 11/06/2024 status post-op pain control continue abx as per ID recs plan to dc to NH for 6 weeks IV Abx case management working on placement. creatinine improving pt denies chest pain wound care as per ortho surg PDMP PDMP Reviewed: Not Reviewed Attestations 2 Medical Necessity Statement*: discharge planning, post - op continued iv antibiotics Diagnoses Hypertension, unspecified type I10 Hypertension type: unspecified Leukocytosis D72.829 Chronic kidney disease N18.9 Chronic kidney disease stage: unspecified stage Psychosis F29 Knee swelling M25.469
[2024-11-06] MEDS: HYDROmorphone 0.5 MG/0.5 ML INJ IVP (16:40)
--- NOTE | 2024-11-06 16:50 | P.PN_ITS ---
Subjective 2 Subjective: Patient seen and examined today postop day 1 from a right knee I&D with patellar bursal excision, left [id number] amputation. Patient's hemoglobin 8.2 today. Dressings are clean dry and intact. Patient updated on intraoperative findings and discharge instructions moving forward. Patient understands and appreciative of care. Vitals/I&O/Wt Last Vital Signs Temp 98.2 F 11/06/24 13:00 Pulse 66 11/06/24 14:00 Resp 15 11/06/24 14:00 BP 124/79 11/06/24 14:00 Pulse Ox 99 11/06/24 14:00 O2 Del Method Room Air 11/06/24 13:00 11/06/24 11/06/24 11/06/24 06:59 14:59 22:59 Intake Total 1279.114 / 3263.830 1490.741 / 1490.741 3.390 / 1494.131 Output Total 500 / 500 175 / 175 Balance 779.114 / 2763.830 1315.741 / 1315.741 3.390 / 1319.131 Weight last 48 hrs Weight 141 lb 14.4 oz Weight 142 lb 3.17 oz Physical Exam 2 Narrative: Dressings to the right BKA stump/knee is on in place clean dry and intact she can actively flex and extend at the knee. Dressings to the left above the knee amputation stump is clean dry and intact. Urinary Catheter Management: Riojas: Cath Placed During This Visit: yes Reason for Continuing Indwelling Catheter: Accurate Measurement of Urinary Output in Critically Ill Patients Urinary Catheter Date of Insertion: 11/04/24 Urinary Catheter Time of Insertion: 16:00 Data 11/06/24 04:05 11/06/24 04:05 Micro: Microbiology 11/05/24 17:02 Gram Stain - Final Knee - Right Anaerobic Culture - Preliminary Abscess Culture - Preliminary 11/05/24 17:28 Gram Stain - Final Knee - Left Anaerobic Culture - Preliminary Abscess Culture - Preliminary 11/06/24 04:05 Blood Culture - Preliminary Blood SPECIMEN COLLECTED 11/06/24 04:00 Blood Culture - Preliminary Blood SPECIMEN COLLECTED A&P Assessment and plan (1) Septic prepatellar bursitis of right knee: (2) Infection of amputation stump, left lower extremity: (3) Status post above-knee amputation of left lower extremity: (4) S/P right knee surgery: Plan AM labs reviewed Patient was updated on intraoperative findings Hemoglobin stable at 8.2 continue to monitor Internal medicine on board as primary Antibiotics per primary Pain control Dressings on in place clean dry and intact may change or reinforce as needed if becomes saturated Orthopedics will continue to follow PDMP PDMP Reviewed: Not Reviewed Attestations 2 Medical Necessity Statement*: Ongoing care status post right knee irrigation debridement patellar bursal excision, left [id number] amputation Coding Level of Care Code Acute Code for Chg Fwd Diagnoses Septic prepatellar bursitis of right knee M71.161 Infection of amputation stump, left lower extremity T87.44 Status post above-knee amputation of left lower extremity Z89.612 S/P right knee surgery Z98.890 Time Spent (min) 15
--- NOTE | 2024-11-06 17:04 | PM.PN ---
Subjective Subjective: Infectious disease progress note s/p surgical intervention Medications: Reviewed: Yes Medication Review Details: Current Medications Amlodipine Besylate (Amlodipine 10 Mg Tablet) 5 mg PO DAILY DAWSON Last Admin: 11/05/24 10:14 Dose: Not Given Camphor/Menthol/Phenol (Blistex Lip Oint 7 Gm Tube) 1 applic TOPICAL Q1H PRN PRN Reason: DRYNESS Cefazolin Sodium (Cefazolin 2,000 Mg Sdv) 2,000 mg IVP Q12H DAWSON; Protocol Last Admin: 11/06/24 03:17 Dose: 2,000 mg Glucagon (Glucagon 1 Mg/Ml Kit 1 Ml) 1 mg IM ONCE PRN; Protocol PRN Reason: Adult Acute Hypoglycemia Nursing Prot. Hydralazine HCl (Hydralazine 20 Mg/Ml Inj 1 Ml) 10 mg IVP Q4H PRN PRN Reason: SBP>180mmHg or DBP>110mmHG Hydromorphone HCl (Hydromorphone 0.5 Mg/0.5 Ml Inj) 1 mg IVP Q6H PRN PRN Reason: SEVERE PAIN Last Admin: 11/06/24 06:55 Dose: 1 mg Dextrose (D5w) 500 mls @ 0 mls/hr IV ONCE PRN; Protocol PRN Reason: Adult Acute Hypoglycemia Prot Dextrose (D10w) 125 mls @ 750 mls/hr IV PRN PRN; Protocol PRN Reason: Adult Acute Hypoglycemia Nursing Protocol Dextrose (D10w) 250 mls @ 1,000 mls/hr IV PRN PRN; Protocol PRN Reason: Adult Acute Hypoglycemia Nursing Protocol Lactated Ringer's (Lactated Ringers) 1,000 mls @ 100 mls/hr IV .Q10H DAWSON Last Admin: 11/06/24 03:17 Dose: 100 mls/hr Dexmedetomidine/Sodium Chloride (Precedex) 400 mcg in 100 mls @ 0 mls/hr IV .Q0M DAWOSN; Protocol Last Admin: 11/06/24 06:56 Dose: 0.5 mcg/kg/hr, 8.06 mls/hr Insulin Human Lispro (Insulin Lispro 100 Unit/1 Ml) 0 unit SUBCUT WM&BEDTIME DAWSON; Protocol Last Admin: 11/06/24 08:15 Dose: 6 unit Isosorbide Mononitrate (Isosorbide Mononitrate 20 Mg Tablet) 20 mg PO BID [facility] Last Admin: 11/06/24 08:14 Dose: 20 mg Loperamide HCl (Loperamide 2 Mg Capsule) 2 mg PO Q6H PRN PRN Reason: DIARRHEA Metoprolol Tartrate (Metoprolol Tartrate 25 Mg Tablet) 25 mg PO BID@0900,2100 [facility] Last Admin: 11/06/24 08:15 Dose: 25 mg Nicotine (Nicotine 21 Mg Patch) 1 patch TRANSDERMA DAILY PRN PRN Reason: NICOTINE WITHDRAWAL Nicotine Polacrilex (Nicotine 2 Mg Gum) 2 mg BUCCAL Q2H PRN PRN Reason: NICOTINE WITHDRAWAL Olanzapine (Olanzapine 10 Mg Vial) 10 mg IM Q12H PRN PRN Reason: SEVERE AGITATION Last Admin: 11/05/24 20:53 Dose: 10 mg Ondansetron HCl (Ondansetron 4 Mg Tablet) 4 mg PO Q6H PRN PRN Reason: NAUSEA AND VOMITING Last Admin: 11/03/24 13:36 Dose: 4 mg Oxycodone/Acetaminophen (Oxycodone-Apap 5-325 Mg Tablet) 1 tab PO Q4H PRN PRN Reason: MODERATE PAIN Last Admin: 11/06/24 04:02 Dose: 1 tab Paroxetine HCl (Paroxetine 20 Mg Tablet) 40 mg PO DAILY [facility] Last Admin: 11/06/24 08:14 Dose: 40 mg Sodium Chloride (Sodium Chloride 0.9% 100 Ml Bag) 50 ml IV PRN PRN PRN Reason: Blood transfusion prime and flush Stop: 11/06/24 17:38 Vitals/I&O/Wt Last Vital Signs Temp 98.2 F 11/06/24 13:00 Pulse 66 11/06/24 14:00 Resp 15 11/06/24 14:00 BP 124/79 11/06/24 14:00 Pulse Ox 99 11/06/24 14:00 O2 Del Method Room Air 11/06/24 13:00 11/06/24 11/06/24 11/06/24 06:59 14:59 22:59 Intake Total 1279.114 / 3263.830 1490.741 / 1490.741 3.390 / 1494.131 Output Total 500 / 500 175 / 175 Balance 779.114 / 2763.830 1315.741 / 1315.741 3.390 / 1319.131 Weight last 48 hrs Weight 64.365 kg Weight 64.5 kg Physical Exam Narrative: General:asleep, currently sedated with Precedex in the ICU HEENT: PERRLA, pupils bilaterally equal and reactive, pallors not present Urinary Catheter Management: Riojas: Cath Placed During This Visit: yes Reason for Continuing Indwelling Catheter: Accurate Measurement of Urinary Output in Critically Ill Patients Urinary Catheter Date of Insertion: 11/04/24 Urinary Catheter Time of Insertion: 16:00 Data 11/06/24 04:05 11/06/24 04:05 Micro: Microbiology 11/05/24 17:02 Gram Stain - Final Knee - Right Anaerobic Culture - Preliminary Abscess Culture - Preliminary 11/05/24 17:28 Gram Stain - Final Knee - Left Anaerobic Culture - Preliminary Abscess Culture - Preliminary 11/06/24 04:05 Blood Culture - Preliminary Blood SPECIMEN COLLECTED 11/06/24 04:00 Blood Culture - Preliminary Blood SPECIMEN COLLECTED A&P Assessment and plan (1) Osteomyelitis of left lower extremity: (2) Wound dehiscence: (3) Cellulitis: (4) Bursitis due to bacterial infection: (5) Abscess of right lower extremity: (6) Prepatellar bursitis: Plan 44-year-old lady with multiple comorbidities as listed above presenting to the hospital with bilateral infectious prepatellar bursitis and left stump osteomyelitis. Associated wound dehiscence which has not healed since at least April 2024. Recommend to obtain Blood cultures, utility may be limited since she has been on Linezolid for treatment Status post I&D by general surgery In aug 2024, bone biopsy and culture taken on September 14, 2024 wound culture and Gram stain from the left BKA stump on 09/14/24 were with MSSA. left stump Bone biopsy and cx from right side were without growth. s/p treatment with Vanc/Zosyn--> iv cefazolin x 10 days followed by 6 weeks of oral cephalexin without any improvement. Transition to oral abx was needed due to mutliple social limitations as noted above. patient's continued attempts at ambulation on stump likely contributing to dehiscence of wounds Currently admitted since 11/01, initially to NPU, now on meidcine service MRI with evidence of persisting osteomyelitis and prepatellar bursitis on left and persisting prepatellar bursitis on right. Findings infectious vs inflammatory, given leukocytosis and above history, presumed to be infectious etiology with failure of recent outpatient abx. 11/01 suprficial wound cx with grp G streptoccus She is currently on treatment empirically with iv linezolid D/c linezolid Start cefazolin 2 g iv every 12h (renally dosed for cr cl of 29) given recovery of MSSA on past occassions and this organism likely to still be the culprit. Patient is planned for [facility] with orthopedics service Recommend to obtain OR cx to enable selection of abx at discharge anticipate discharge on prolonged course of iv abx of 4-6 weeks, but final recommendation to be based on review of op findings Highly recommend discharge to correction facility with wound care management and iv abx administration capabilities when she is ready. will continue to follow 11/06/24: S/p AKA left leg and I&D of bursal abscess on 11/05. Tolerated procedure well. OR cx is pending. Blood cx negative thus far Picc line once blood cx remains negative for 48 hrs Continue cefazolin 2g iv every 12 hrs will follow PDMP PDMP Reviewed: Not Reviewed Attestations Medical Necessity Statement*: per admitting Coding Level of Care Code Acute Code for [facility] Fwd Diagnoses Osteomyelitis of left lower extremity M86.9 Wound dehiscence T81.30XA Cellulitis L03.90 Bursitis due to bacterial infection M71.10; B96.89 Abscess of right lower extremity L02.415 Prepatellar bursitis M70.40
[2024-11-06 17:24] LABS: Glucose Point of Care 108 mg/dL (70-110)
--- NOTE | 2024-11-06 18:15 | P.NPUPN_ITS ---
Subjective NPU 2 Subjective: Patient presented today reporting that things are going okay. She reports that she is in a lot of pain after the procedure to move her amputation above the knee on the left side. She continued to discuss the plan for moving onto a rehab after she is safe to discharge from the hospital excepting that that is necessary and reporting that she we will work through her issues because she knows she has to do this. She denied any side effects to her medication vet was inquiring about the possibility of increasing Klonopin and Seroquel. Mental Status Exam 2 MSE Comments: This is an overweight white female in hospital scrubs with limited grooming and eye contact with notable below-knee amputation bilaterally lying in hospital bed. No abnormal involuntary motor movements were appreciated. She was?uncooperative with exam in no acute distress.? Speech was normal in rate , slurred and normal in volume. ? Mood described as okay.. Affect was less restricted. Thought process was linear and logical. Thought content: Patient denied suicidal ideation and denied homicidal ideation today. There was no evidence of delusional thinking. She denied auditory or visual hallucinations and did not appear to be responding to internal stimuli. Attention and concentration appeared better. Insight remained poor. Judgment was fair at this time. Impulse control remained guarded. Vitals/I&O/Wt Last Vital Signs Temp 98.2 F 11/06/24 13:00 Pulse 66 11/06/24 14:00 Resp 15 11/06/24 14:00 BP 124/79 11/06/24 14:00 Pulse Ox 99 11/06/24 14:00 O2 Del Method Room Air 11/06/24 13:00 11/06/24 11/06/24 11/06/24 06:59 14:59 22:59 Intake Total 1279.114 / 3263.830 1490.741 / 1490.741 3.390 / 1494.131 Output Total 500 / 500 175 / 175 Balance 779.114 / 2763.830 1315.741 / 1315.741 3.390 / 1319.131 Weight last 48 hrs Weight 64.365 kg Weight 64.5 kg Physical Exam 2 Urinary Catheter Management: Riojas: Cath Placed During This Visit: yes Reason for Continuing Indwelling Catheter: Accurate Measurement of Urinary Output in Critically Ill Patients Urinary Catheter Date of Insertion: 03/19/25 Urinary Catheter Time of Insertion: 16:00 Data NPU 11/07/24 04:24 11/07/24 04:24 Micro: Microbiology 11/05/24 17:02 Gram Stain - Final Knee - Right Anaerobic Culture - Preliminary Abscess Culture - Preliminary 11/05/24 17:28 Gram Stain - Final Knee - Left Anaerobic Culture - Preliminary Abscess Culture - Preliminary 11/06/24 04:05 Blood Culture - Preliminary Blood SPECIMEN COLLECTED 11/06/24 04:00 Blood Culture - Preliminary Blood SPECIMEN COLLECTED Microbiology 11/05/24 17:02 Knee - Right Gram Stain - Final 11/05/24 17:02 Knee - Right Anaerobic Culture - Preliminary 11/05/24 17:02 Knee - Right Abscess Culture - Preliminary 11/05/24 17:28 Knee - Left Gram Stain - Final 11/05/24 17:28 Knee - Left Anaerobic Culture - Preliminary 11/05/24 17:28 Knee - Left Abscess Culture - Preliminary 11/06/24 04:05 Blood Blood Culture - Preliminary SPECIMEN COLLECTED 11/06/24 04:00 Blood Blood Culture - Preliminary SPECIMEN COLLECTED A&P Assessment and plan (1) Dysthymic disorder: (2) Suicidal ideation: (3) ALEJANDRO (generalized anxiety disorder): (4) Panic attacks: Plan 44 year old with multiple medical problems with history of depression, anxiety and borderline personality traits endorsing suicidal ideation with history of noncompliance with medications. Patient in ICU. #1.? Engage patient in individual milieu and group therapy. #2?? Recommend sober living treatment at the highest level of care to which the patient is willing to commit #3??? Continue Klonopin .25mg bid,Continue seroquel 150mg at night, Continue Paxil 40mg daily. Patient would benefit from pain consult on an outpatient basis. #4?? TO-15 minute checks? #5?? Will attempt to gather collateral information PDMP PDMP Reviewed: Not Reviewed Involuntary Hold Information 2 96 Hour Hold: 96 Hour Involuntary Admission: No Attestations NPU 2 Medical Necessity Statement*: N/A. Please see primary team note for medical necessity. Coding Level of Care Code Acute Code for Chg Fwd Diagnoses Dysthymic disorder F34.1 Suicidal ideation R45.851 ALEJANDRO (generalized anxiety disorder) F41.1 Panic attacks F41.0
--- NOTE | 2024-11-06 19:32 | PC.NURSE ---
Shift SUmmary: Uneventful shift. REsted in bed. Gonzalez removed and patient has been able to void on the bedside commode. Precedex weaned off. PRN pain medication given regularly, but there were frequent reports of breakthrough pain requiring additional one time doses of dilaudid. Patient behaviors have greatly improved. Patient is calm, cooperative, conversational, appears to want to play an active role in her care. No self harm today. SItter discontinued.
[2024-11-06] MEDS: ondansetron 2 mg/ML SDV 2 mL 4 MG IVP (20:40)
[2024-11-06 21:01] LABS: Glucose Point of Care 141 mg/dL (70-110)
[2024-11-06] MEDS: fentaNYL 50 mcg Patch 1 PATCH TRANSDERMA (21:58)
[2024-11-07] VITALS (56 sets, daily range): BP systolic 91–185; BP diastolic 54–116; PULSE 59–77; RESP 2–28; TEMP 36.6–37.4; O2SAT 64–99
[2024-11-07] MEDS: dexmedeTOMIDine 0.9 % NaCL 400 MCG/100 ML PREMIX 6.45 MCG IV (00:44)
[2024-11-07] MEDS: oxyCODONE-APAP 5-325 mg Tablet 1 TAB PO ×5 (01:38→20:17)
[2024-11-07] MEDS: ceFAZolin 2,000 mg SDV 2000 MG IVP ×2 (03:21→14:33)
[2024-11-07] MEDS: HYDROmorphone 0.5 MG/0.5 ML INJ 1 MG IVP (03:22)
[2024-11-07 04:52] LABS: Basophils % 0.4 %; Eosinophils # 0.1 10^3/uL (0.0-0.8); Eosinophils % 1.3 %; Hematocrit 22.2 % (36-47); Lymphocytes # 1.8 10^3/uL (0.8-4.8); Lymphocytes % 24.4 %; Mean Corpuscular HGB Conc 31.5 g/dL (30-55); Mean Corpuscular Hemoglobin 28.6 pg (27-33); Mean Corpuscular Volume 90.6 fl (85-98); Mean Platelet Volume 8.7 fL (7.4-10.4); Monocytes # 0.5 10^3/uL (0.2-0.9); Monocytes % 7.4 %; Neutrophils # 4.71 10^3/uL (1.8-7.7); Neutrophils % 65.7 %; Nucleated Red Blood Cells % 0 %; Platelet Count 307 10^3/cmm (157-399); Red Blood Count 2.45 10^6/uL (3.85-5.65); Red Cell Distribution Width 14.3 % (12.1-15.1); White Blood Count 7.17 10^3/uL (3.29-11.43)
[2024-11-07 05:10] LABS: Anion Gap 12.8 (5-19); Blood Urea Nitrogen 22 mg/dL (6-20); Calcium 8.1 mg/dL (8.5-10.5); Carbon Dioxide 24 mmol/L (22-29); Chloride 105 mmol/L (98-107); Glucose 94 mg/dL (65-115); Magnesium 1.6 mg/dL (1.7-2.3); Osmolality Calculated 289 mOsm/kg (285-295); Potassium 3.8 mmol/L (3.5-5.1); Sodium 138 mmol/L (136-145)
[2024-11-07 07:52] LABS: Glucose Point of Care 104 mg/dL (70-110)
[2024-11-07] MEDS: metoprolol tartrate 25 mg Tablet PO ×2 (08:07→20:17)
[2024-11-07] MEDS: amlodipine 5 mg Tablet 2.5 MG PO (08:07)
[2024-11-07] MEDS: isosorbide mononitrate 20 mg Tablet PO ×2 (08:07→17:53)
[2024-11-07] MEDS: PARoxetine 20 mg Tablet 40 MG PO (08:08)
[2024-11-07 10:04] LABS: ANCA Screen NEGATIVE (NEGATIVE)
[2024-11-07] MEDS: pantoprazole DR 40 mg Tablet PO (11:22)
[2024-11-07 11:44] LABS: C Reactive Protein 26.7 mg/L (0.0-4.9)
--- NOTE | 2024-11-07 11:49 | PM.PN ---
Subjective Subjective: Patient seen and examined today she is doing well she is placed on a fentanyl patch which helped her pain. Controlled with diet and medications. Dressings are clean dry and intact. Her hemoglobin has dipped down to 7.0 today will defer to primary for possible 1 unit PRBC today. Vitals/I&O/Wt Last Vital Signs Temp 98.4 F 11/07/24 07:01 Pulse 61 11/07/24 10:00 Resp 17 11/07/24 10:00 BP 112/60 11/07/24 10:00 Pulse Ox 99 11/07/24 10:00 O2 Del Method Room Air 11/07/24 10:00 11/06/24 11/07/24 11/07/24 22:59 06:59 14:59 Intake Total 13.123 / 1503.864 37.189 / 1541.053 19.631 / 19.631 Output Total 475 / 650 825 / 1475 200 / 200 Balance -461.877 / 853.864 -787.811 / 66.053 -180.369 / -180.369 Weight last 48 hrs Weight 141 lb 14.4 oz Physical Exam Narrative: Dressings to the right BKA stump/knee is on in place clean dry and intact she can actively flex and extend at the knee. Dressings to the left above the knee amputation stump is clean dry and intact. Urinary Catheter Management: Riojas: Cath Placed During This Visit: yes, but has since been removed by the nurse Reason for Continuing Indwelling Catheter: Accurate Measurement of Urinary Output in Critically Ill Patients Urinary Catheter Date of Insertion: 11/04/24 Urinary Catheter Time of Insertion: 16:00 Date Urinary Catheter Removed: 11/06/24 Time Urinary Catheter Discontinued: 14:00 Data 11/07/24 04:24 11/07/24 04:24 Micro: Microbiology 11/06/24 04:05 Blood Culture - Preliminary Blood NEGATIVE TO DATE 11/06/24 04:00 Blood Culture - Preliminary Blood NEGATIVE TO DATE 11/05/24 17:02 Gram Stain - Final Knee - Right Anaerobic Culture - Preliminary Abscess Culture - Preliminary 11/05/24 17:28 Gram Stain - Final Knee - Left Anaerobic Culture - Preliminary Abscess Culture - Preliminary A&P Assessment and plan (1) Septic prepatellar bursitis of right knee: (2) Infection of amputation stump, left lower extremity: (3) Status post above-knee amputation of left lower extremity: (4) S/P right knee surgery: Plan AM labs reviewed Patient was updated on intraoperative findings Hemoglobin stable at 7.0?will defer to primary for possible 1 unit PRBC today if deemed necessary otherwise we will continue to monitor Internal medicine on board as primary Antibiotics per primary Pain control Dressings on in place clean dry and intact may change or reinforce as needed if becomes saturated?will plan to have Ortho change dressing tomorrow morning Orthopedics will continue to follow PDMP PDMP Reviewed: Not Reviewed Attestations Medical Necessity Statement*: Ongoing care status post right knee irrigation debridement patellar bursal excision, left [id number] amputation Coding Level of Care Code Acute Code for [facility] Fwd Diagnoses Septic prepatellar bursitis of right knee M71.161 Infection of amputation stump, left lower extremity T87.44 Status post above-knee amputation of left lower extremity Z89.612 S/P right knee surgery Z98.890 Time Spent (min) 10
[2024-11-07 12:13] LABS: Glucose Point of Care 96 mg/dL (70-110)
--- NOTE | 2024-11-07 13:31 | P.PN_ITS ---
Subjective 2 Subjective: seen this morning more comfortable on fentanyl patch pain control adequate hb 7.00 this am ryan removed yesterday pt able to use bedside commode using upper extremities Vitals/I&O/Wt Last Vital Signs Temp 98.4 F 11/07/24 07:01 Pulse 61 11/07/24 10:00 Resp 16 11/07/24 12:05 BP 112/60 11/07/24 10:00 Pulse Ox 99 11/07/24 12:05 O2 Del Method Room Air 11/07/24 10:00 11/06/24 11/07/24 11/07/24 22:59 06:59 14:59 Intake Total 13.123 / 1503.864 37.189 / 1541.053 19.631 / 19.631 Output Total 475 / 650 825 / 1475 200 / 200 Balance -461.877 / 853.864 -787.811 / 66.053 -180.369 / -180.369 Weight last 48 hrs Weight 64.365 kg Physical Exam 2 Narrative: General: Alert oriented x 3 sitting up in bed. HEENT: PERRLA, pupils bilaterally equal and reactive, Chest: Normal vesicular breath sounds, no added sounds, equal good air entry bilaterally CVS: S1-S2 regular, no gross murmurs. Abdomen: Soft, nontender, bowel sounds present Neuro: No focal deficits grossly Extremities: stumps covered with bandage at this time. Urinary Catheter Management: Ryan: Cath Placed During This Visit: yes, but has since been removed by the nurse Reason for Continuing Indwelling Catheter: Accurate Measurement of Urinary Output in Critically Ill Patients Urinary Catheter Date of Insertion: 11/04/24 Urinary Catheter Time of Insertion: 16:00 Date Urinary Catheter Removed: 11/06/24 Time Urinary Catheter Discontinued: 14:00 Data 11/07/24 04:24 11/07/24 04:24 Micro: Microbiology 11/05/24 17:02 Gram Stain - Final Knee - Right Anaerobic Culture - Preliminary Abscess Culture - Preliminary 11/05/24 17:28 Gram Stain - Final Knee - Left Anaerobic Culture - Preliminary Abscess Culture - Preliminary 11/06/24 04:05 Blood Culture - Preliminary Blood NEGATIVE TO DATE 11/06/24 04:00 Blood Culture - Preliminary Blood NEGATIVE TO DATE A&P Assessment and plan (1) Hypertension: Off Cardene drip, discontinue clonidine which can cause increase the risk of rebound hypertension, will use isosorbide mononitrate along amlodipine and metoprolol Qualifiers: Hypertension type: unspecified Qualified Code(s): I10 - Essential (primary) hypertension (2) Leukocytosis: Patient present with significant leukocytosis She has a extensive history of wounds Repeat blood work ordered for this morning Obtain inflammatory markers Check urinalysis Start oral antibiotics while awaiting above results (3) Chronic kidney disease: Worsening kidney function noted, patient endorsing voiding urine, Monitor kidney function for now Qualifiers: Chronic kidney disease stage: unspecified stage Qualified Code(s): N 18.9 - Chronic kidney disease, unspecified (4) Psychosis: No acute decompensation (5) Knee swelling: Patient will need drainage of right knee fluid collection Will consult Dr. Salas orthopedics Patient already on antibiotics leukocytosis trending down, no active fever Plan DVT prophylaxis: Hold anticoagulating agent patient will need drainage of right knee 11/03/2024 Creatinine 2.7 today. Baseline 1.7-1.8. Patient does have an FIONA at this time. Etiology unknown however possibility of vancomycin induced? Vanc trough 10.5. Consult nephrology MRI bilateral lower extremity reviewed: Evidence of osteomyelitis. Orthopedic surgery consulted. Plan for amputation and debridement today. Please see Ortho note for details. Patient will require extensive wound care, IV antibiotics were at least 6 weeks going forward after surgery. Will refer to LTAC for possible transfer. Patient initially admitted with suicidal ideation. Will discuss with psychiatry regarding further plan. At this time she does not endorse suicidal ideation. Continue Dilaudid for pain. Continue Klonopin for anxiety. Revised cardiac risk index: Score 2 points, 10.1% risk for 30-day mortality. Placed on normal saline 75 cc/h. will check echo as part of pre-op clearance. Patient does have a history of coronary disease with history of stents and 2020 after [place], hypertension hyperlipidemia. She was supposed have a stress test scheduled in 2021 but I do not believe it ever got completed. Patient is not cleared for surgery yet 11/04/2024 Creatinine 3.1 today. Unsure etiology. Possible ATN?. Will stop vancomycin and switch to IV linezolid. Nephrology following. Appreciate recommendations. Renal ultrasound reviewed. Will await further recommendations for today. ? Patient requires amputation for source control secondary to osteomyelitis. We are currently in the process of obtaining cardiac clearance. ? Echo shows normal LV size with borderline low ejection fraction 52%. Moderate hypokinesis of basal inferior wall segment. ? Patient states that her last coronary angiogram was done at [facility] close to [place]. She does not remember the name of the hospital. She states she had stents placed about 3 years ago. ? We will be requesting records. ? Cardiology consulted for cardiac clearance. Plan for possible stress test in AM. ? If optimized from cardiology standpoint and okay to proceed to surgery tentatively plan for amputation with orthopedic surgery as soon as cleared from cardiology standpoint.. Will keep patient n.p.o. at midnight tonight for stress test in a.m. if patient is unable to tolerate stress testing cardiology has no plans of proceeding to angiogram given active FIONA at this time. We will await for further recommendations. ? Discussed with orthopedic surgery. Once patient optimized from cardiology standpoint we will proceed with surgery. Ortho recommendations appreciated. ? Consult infectious disease for antibiotic recommendations going forward. ? Patient will need LTAC versus detention placement after surgery for wound care and IV antibiotic administration. ? I had a conversation with patient on multiple occasions regarding proceeding with amputation to which she is agreeable to. Patient is not interested in going forward with wound care and continuing antibiotics. She has stated on various occasions that she has already tried that and knows where this is going to go and what will happen therefore she would like to proceed with amputation. Patient understands that she will need extensive wound care and a lot of care after surgery to ensure adequate healing of her surgical wounds. ? She does have back pain which is chronic. Will continue using Dilaudid 0.5 every 6 hours. I will add hydrocodone 5 mg every 4 hours as needed as well. ? Primary team is psychiatry. Medicine ID and orthopedic services are on consult. 11/05/2024 Discussed patient's cath results from [facility] with cardiology. Patient is chest pain-free and does not have any shortness of breath at this time. Patient not a candidate for angiogram secondary to FIONA. Cardiology has pleated preop evaluation. Patient okay to proceed to surgery with moderate to high acceptable risk at this time. Discussed with anesthesia as well. ? ID consulted for antibiotic guidance going forward. Will await for recommendations ? Patient will need extensive continued postop care, wound care, IV antibiotics to which she is agreeable to. ? I have had multiple discussions with patient regarding her behavior postop and she has assured me that she will comply. -Cr 2.6 today, improving - patient to go for surgery today afternoon. - NPO at this time. 11/06/2024 status post-op pain control continue abx as per ID recs plan to dc to NH for 6 weeks IV Abx case management working on placement. creatinine improving pt denies chest pain wound care as per ortho surg 11/07/2024 pain control stop dilaudid continue fentanyl patch and oxy IR q4h had a discussion with patient to move towards a planned outpatient pain regimen as we near discharge. plan to dc to NH for 6 weeks IV Abx case management working on placement. wound care as per ortho hemoglobin 7.0 this am, order 2 units prbc check hb in am transfer to [facility] today pt off precedex gtt since last night PDMP PDMP Reviewed: Not Reviewed Attestations 2 Medical Necessity Statement*: discharge planning, post - op continued iv antibiotics Diagnoses Hypertension, unspecified type I10 Hypertension type: unspecified Leukocytosis D72.829 Chronic kidney disease N18.9 Chronic kidney disease stage: unspecified stage Psychosis F29 Knee swelling M25.469
[2024-11-07] MEDS: diphenhydrAMINE 25 mg Capsule PO (15:06)
[2024-11-07] MEDS: sodium chloride 0.9% 100 mL Bag 50 ML IV (15:08)
[2024-11-07] MEDS: ondansetron 2 mg/ML SDV 2 mL 4 MG IVP (15:19)
[2024-11-07 17:49] LABS: Glucose Point of Care 125 mg/dL (70-110)
[2024-11-07] MEDS: duloxetine 20 mg Capsule PO (17:53)
--- NOTE | 2024-11-07 18:21 | P.NPUPN_ITS ---
Subjective NPU 2 Subjective: Patient presented today reporting that things are going okay. She is doing fine here and is looking forward to transfer to [facility] when a bed is available. She was reporting optimism about managing things going forward. Her was at the bedside and was also being supportive of the plan and her getting the antibiotics. She was reporting slightly less anxiety at this point. She denied any side effects to the medication. Mental Status Exam 2 MSE Comments: This is an overweight white female in hospital scrubs with limited grooming and eye contact with notable below-knee amputation bilaterally lying in hospital bed. No abnormal involuntary motor movements were appreciated. She was?uncooperative with exam in no acute distress.? Speech was normal in rate , slurred and normal in volume. ? Mood described as okay.. Affect was less restricted. Thought process was linear and logical. Thought content: Patient denied suicidal ideation and denied homicidal ideation today. There was no evidence of delusional thinking. She denied auditory or visual hallucinations and did not appear to be responding to internal stimuli. Attention and concentration appeared better. Insight remained poor. Judgment was fair at this time. Impulse control remained guarded. Vitals/I&O/Wt Last Vital Signs Temp 97.8 F 11/07/24 20:02 Pulse 64 11/07/24 20:02 Resp 20 H 11/07/24 20:02 BP 170/94 11/07/24 20:02 Pulse Ox 99 11/07/24 20:02 O2 Del Method Room Air 11/07/24 20:02 11/07/24 11/07/24 14:59 22:59 Intake Total 1019.631 / 1019.631 700 / 1719.631 Output Total 200 / 200 1025 / 1225 Balance 819.631 / 819.631 -325 / 494.631 Weight last 48 hrs Weight 67.767 kg Weight 64.365 kg Physical Exam 2 Urinary Catheter Management: Riojas: Cath Placed During This Visit: yes, but has since been removed by the nurse Reason for Continuing Indwelling Catheter: Accurate Measurement of Urinary Output in Critically Ill Patients Urinary Catheter Date of Insertion: 11/04/24 Urinary Catheter Time of Insertion: 16:00 Date Urinary Catheter Removed: 11/06/24 Time Urinary Catheter Discontinued: 14:00 Data NPU 11/08/24 04:55 11/08/24 04:55 Micro: Microbiology 11/05/24 17:28 Gram Stain - Final Knee - Left Anaerobic Culture - Preliminary Abscess Culture - Preliminary 11/05/24 17:02 Gram Stain - Final Knee - Right Anaerobic Culture - Preliminary Abscess Culture - Preliminary 11/06/24 04:05 Blood Culture - Preliminary Blood NEGATIVE TO DATE 11/06/24 04:00 Blood Culture - Preliminary Blood NEGATIVE TO DATE Microbiology 11/05/24 17:28 Knee - Left Gram Stain - Final 11/05/24 17:28 Knee - Left Anaerobic Culture - Preliminary 11/05/24 17:28 Knee - Left Abscess Culture - Preliminary 11/05/24 17:02 Knee - Right Gram Stain - Final 11/05/24 17:02 Knee - Right Anaerobic Culture - Preliminary 11/05/24 17:02 Knee - Right Abscess Culture - Preliminary 11/06/24 04:05 Blood Blood Culture - Preliminary NEGATIVE TO DATE 11/06/24 04:00 Blood Blood Culture - Preliminary NEGATIVE TO DATE A&P Assessment and plan (1) Dysthymic disorder: (2) Suicidal ideation: (3) ALEJANDRO (generalized anxiety disorder): (4) Panic attacks: Plan 44 year old with multiple medical problems with history of depression, anxiety and borderline personality traits endorsing suicidal ideation with history of noncompliance with medications. Patient in ICU. #1.? Engage patient in individual milieu and group therapy. #2?? Recommend sober living treatment at the highest level of care to which the patient is willing to commit #3??? Continue Klonopin .25mg bid,Continue seroquel 150mg at night, Continue Paxil 40mg daily. Patient would benefit from pain consult on an outpatient basis. #4?? TO-15 minute checks? #5?? Will attempt to gather collateral information PDMP PDMP Reviewed: Not Reviewed Involuntary Hold Information 2 96 Hour Hold: 96 Hour Involuntary Admission: No Attestations NPU 2 Medical Necessity Statement*: N/A. Please see primary team note for medical necessity. Coding Level of Care Code Acute Code for Chg Fwd Diagnoses Dysthymic disorder F34.1 Suicidal ideation R45.851 ALEJANDRO (generalized anxiety disorder) F41.1 Panic attacks F41.0
--- NOTE | 2024-11-07 18:36 | PC.NURSE ---
TAR vital signs: See vital sign flowsheet
--- NOTE | 2024-11-07 18:49 | P.PN_ITS ---
Subjective 2 Medications: Reviewed: Yes Vitals/I&O/Wt Last Vital Signs Temp 99.4 F 11/07/24 18:30 Pulse 66 11/07/24 18:30 Resp 14 11/07/24 18:30 BP 134/90 11/07/24 18:30 Pulse Ox 94 11/07/24 18:30 O2 Del Method Room Air 11/07/24 18:30 11/07/24 11/07/24 11/07/24 06:59 14:59 22:59 Intake Total 37.189 / 9752.119 0757.631 / 1019.631 350 / 1369.631 Output Total 825 / 1475 200 / 200 550 / 750 Balance -787.811 / 66.053 819.631 / 819.631 -200 / 619.631 Weight last 48 hrs Weight 64.365 kg Physical Exam 2 Narrative: Vital signs noted. Comfortable sitting in a chair no apparent distress. HEENT normocephalic atraumatic. Neck is supple no JVP. Lungs -clear b/l Heart is regular positive S1-S2. Abdomen is soft nontender nondistended positive bowel sounds. Extremities RT BKA bandaged, Left AKA bandaged Neuro awake alert oriented x 3 , moves Urinary Catheter Management: Riojas: Cath Placed During This Visit: yes, but has since been removed by the nurse Reason for Continuing Indwelling Catheter: Accurate Measurement of Urinary Output in Critically Ill Patients Urinary Catheter Date of Insertion: 11/04/24 Urinary Catheter Time of Insertion: 16:00 Date Urinary Catheter Removed: 11/06/24 Time Urinary Catheter Discontinued: 14:00 Data 11/07/24 04:24 11/07/24 04:24 Micro: Microbiology 11/05/24 17:28 Gram Stain - Final Knee - Left Anaerobic Culture - Preliminary Abscess Culture - Preliminary 11/05/24 17:02 Gram Stain - Final Knee - Right Anaerobic Culture - Preliminary Abscess Culture - Preliminary 11/06/24 04:05 Blood Culture - Preliminary Blood NEGATIVE TO DATE 11/06/24 04:00 Blood Culture - Preliminary Blood NEGATIVE TO DATE A&P Assessment and plan (1) Acute kidney injury superimposed on CKD: 44-year-old lady with IDDM, peripheral vascular disease status post bilateral BKA's here with stump infection. 1. Patient has CKD baseline creatinine approximately 1.5 mg/dL likely due to diabetes. pth 120- repeat in 4-6 weeks 2. Acute kidney injury: Urinalysis reviewed has 4+ protein. 1+ blood. Patient has had 3+ protein in her urine for over 2 years. Currently her urinalysis also has significant granular casts can be consistent with ATN. Creatinine and urine output improving with IV fluids. Patient's urine sodium was 30 with a chloride of 18 urine creatinine of 160. Continue to monitor and IV fluids. -normal CPK. -normal complements. - Avoid NSAIDs. -Most likely FIONA is from prerenal azotemia versus ATN 3. anemia-patient has a ferritin of 1385 and a 19% saturation. No need for IV iron. Epogen is not effective with acute kidney injury will monitor 4. She is status post a right BKA debridement and left AKA surgery. Further as per orthopedics and vascular. 5. Leukocytosis is improving. 6. Blood pressure well-controlled with medications The patient was seen and examined using audiovisual equipment with the aid of a nurse. The patient consented to telehealth. Plan See above. PDMP PDMP Reviewed: Not Reviewed Attestations 2 Medical Necessity Statement*: Per medicine team Coding Level of Care Code Acute Code for Chg Fwd Diagnoses Acute kidney injury superimposed on CKD N17.9; N18.9
--- NOTE | 2024-11-07 19:46 | PC.NURSE ---
Shift summary: Pt pleasant and cooperative today. She stated the fentanyl patch has given her some good pain control. She still has PRN oxycodone that she took every 4 hours as it was ordered. She did have nausea once this afternoon , she stated it ws from pain. ZOfran admin before oral pain medical office technician. Sinus rhythm noted on monitor. VSS. Her BP did start to climb towards end of shift but she had Isorsorbide scheduled to take too. Her Hgb was low today, 2 units of PRBCs ordered. The Second unit is infusing at this time. She does very well moving from bed to BSC. She only required stand by/minimal assist. She has urinated 3 times with good output this shift. Her and brother in to visit with her today. New IV started to Right AC/Upper arm area, she is a very difficult stick, requiring US with multiple attempts. Which she tolerated very well.
[2024-11-07 20:15] LABS: Glucose Point of Care 118 mg/dL (70-110)
[2024-11-07] MEDS: HYDROmorphone 0.5 MG/0.5 ML INJ IVP ×2 (21:37→22:27)
--- NOTE | 2024-11-07 23:03 | PC.NURSE ---
Transfer Patient transferred to [facility] room 254. Nurse Adelita at bedside. All belongings transferred with patient. Patient voicing no complaints.
[2024-11-08] VITALS (9 sets, daily range): BP systolic 164–211; BP diastolic 85–119; PULSE 58–80; RESP 16–19; TEMP 36.1–36.8; O2SAT 96–99
[2024-11-08] MEDS: oxyCODONE-APAP 5-325 mg Tablet 1 TAB PO ×4 (00:31→22:44)
[2024-11-08] MEDS: ceFAZolin 2,000 mg SDV 2000 MG IVP ×3 (02:43→22:46)
[2024-11-08] MEDS: ondansetron 2 mg/ML SDV 2 mL 4 MG IVP ×4 (02:54→20:36)
[2024-11-08 05:52] LABS: Basophils # 0.1 10^3/uL (0.0-0.1); Basophils % 0.6 %; Eosinophils # 0.2 10^3/uL (0.0-0.8); Eosinophils % 2.1 %; Hematocrit 33.8 % (36-47); Lymphocytes # 1.5 10^3/uL (0.8-4.8); Lymphocytes % 18.4 %; Mean Corpuscular HGB Conc 32.2 g/dL (30-55); Mean Corpuscular Hemoglobin 28.8 pg (27-33); Mean Corpuscular Volume 89.2 fl (85-98); Mean Platelet Volume 8.5 fL (7.4-10.4); Monocytes # 0.7 10^3/uL (0.2-0.9); Neutrophils # 5.61 10^3/uL (1.8-7.7); Neutrophils % 68.9 %; Nucleated Red Blood Cells % 0 %; Platelet Count 324 10^3/cmm (157-399); Red Blood Count 3.79 10^6/uL (3.85-5.65); Red Cell Distribution Width 13.8 % (12.1-15.1); White Blood Count 8.14 10^3/uL (3.29-11.43)
[2024-11-08 06:05] LABS: Anion Gap 14.7 (5-19); Blood Urea Nitrogen 22 mg/dL (6-20); Calcium 8.5 mg/dL (8.5-10.5); Carbon Dioxide 24 mmol/L (22-29); Chloride 102 mmol/L (98-107); Glomerular Filtration Rate 26.8 mL/min (90-130); Glucose 93 mg/dL (65-115); Magnesium 1.4 mg/dL (1.7-2.3); Osmolality Calculated 287 mOsm/kg (285-295); Phosphorus 3.2 mg/dL (2.5-4.5); Potassium 3.7 mmol/L (3.5-5.1); Sodium 137 mmol/L (136-145)
[2024-11-08 06:50] LABS: Glucose Point of Care 99 mg/dL (70-110)
[2024-11-08] MEDS: PARoxetine 20 mg Tablet 40 MG PO (08:51)
[2024-11-08] MEDS: duloxetine 20 mg Capsule PO ×2 (08:52→16:56)
[2024-11-08] MEDS: metoprolol tartrate 25 mg Tablet PO ×2 (08:52→20:34)
[2024-11-08] MEDS: pantoprazole DR 40 mg Tablet PO (08:52)
[2024-11-08] MEDS: isosorbide mononitrate 20 mg Tablet PO ×2 (08:52→16:56)
[2024-11-08] MEDS: amlodipine 5 mg Tablet 2.5 MG PO (08:52)
[2024-11-08] MEDS: HYDROmorphone 0.5 MG/0.5 ML INJ IVP ×3 (08:54→20:36)
[2024-11-08 11:36] LABS: Glucose Point of Care 93 mg/dL (70-110)
--- NOTE | 2024-11-08 12:38 | P.PN_ITS ---
Subjective 2 Subjective: no new complaints Medications: Reviewed: Yes Vitals/I&O/Wt Last Vital Signs Temp 98.2 F 11/08/24 11:00 Pulse 64 11/08/24 11:00 Resp 19 H 11/08/24 11:00 BP 181/89 11/08/24 11:00 Pulse Ox 99 11/08/24 11:00 O2 Del Method Room Air 11/08/24 11:00 11/07/24 11/08/24 11/08/24 22:59 06:59 14:59 Intake Total 700 / 1719.631 240 / 240 Output Total 1025 / 1225 Balance -325 / 494.631 240 / 240 Weight last 48 hrs Weight 67.767 kg Physical Exam 2 Narrative: Vital signs noted. Comfortable sitting in a chair no apparent distress. HEENT normocephalic atraumatic. Neck is supple no JVP. Lungs -clear b/l Heart is regular positive S1-S2. Abdomen is soft nontender nondistended positive bowel sounds. Extremities RT BKA bandaged, Left AKA bandaged Neuro awake alert oriented x 3 , moves Urinary Catheter Management: Riojas: Cath Placed During This Visit: yes, but has since been removed by the nurse Reason for Continuing Indwelling Catheter: Accurate Measurement of Urinary Output in Critically Ill Patients Urinary Catheter Date of Insertion: 11/04/24 Urinary Catheter Time of Insertion: 16:00 Date Urinary Catheter Removed: 11/06/24 Time Urinary Catheter Discontinued: 14:00 Data 11/09/24 05:03 11/09/24 05:03 Micro: Microbiology 11/05/24 17:28 Gram Stain - Final Knee - Left Anaerobic Culture - Preliminary Abscess Culture - Final 11/05/24 17:02 Gram Stain - Final Knee - Right Anaerobic Culture - Preliminary Abscess Culture - Final A&P Assessment and plan (1) Acute kidney injury superimposed on CKD: 44-year-old lady with IDDM, peripheral vascular disease status post bilateral BKA's here with stump infection. 1. Patient has CKD baseline creatinine approximately 1.5 mg/dL likely due to diabetes. Cr stable in 2 range 2. Acute kidney injury: Urinalysis reviewed has 4+ protein. 1+ blood. Patient has had 3+ protein in her urine for over 2 years. Currently her urinalysis also has significant granular casts can be consistent with ATN. Creatinine and urine output improving with IV fluids. Patient's urine sodium was 30 with a chloride of 18 urine creatinine of 160. Continue to monitor and IV fluids. -normal CPK. -normal complements. - Avoid NSAIDs. -Most likely FIONA is from prerenal azotemia versus ATN 3. anemia-patient has a ferritin of 1385 and a 19% saturation. No need for IV iron. Epogen is not effective with acute kidney injury will monitor 4. She is status post a right BKA debridement and left AKA surgery. Further as per orthopedics and vascular. 5. Leukocytosis is improving. 6. Blood pressure well-controlled with medications The patient was seen and examined using audiovisual equipment with the aid of a nurse. The patient consented to telehealth. Plan See above. PDMP PDMP Reviewed: Not Reviewed Attestations 2 Medical Necessity Statement*: per heather Coding Level of Care Code Acute Code for Chg Fwd Diagnoses Acute kidney injury superimposed on CKD N17.9; N18.9
--- NOTE | 2024-11-08 13:23 | P.PN_ITS ---
Subjective 2 Subjective: Patient seen and examined today dressing changed today incisions are healing well no signs of infection. Stable from Ortho standpoint. Again reiterated importance of nonweightbearing on stumps/incision sites. Vitals/I&O/Wt Last Vital Signs Temp 98.2 F 11/08/24 11:00 Pulse 64 11/08/24 11:00 Resp 19 H 11/08/24 11:00 BP 181/89 11/08/24 11:00 Pulse Ox 99 11/08/24 11:00 O2 Del Method Room Air 11/08/24 11:00 11/07/24 11/08/24 11/08/24 22:59 06:59 14:59 Intake Total 700 / 1719.631 240 / 240 Output Total 1025 / 1225 Balance -325 / 494.631 240 / 240 Weight last 48 hrs Weight 149 lb 6.4 oz Physical Exam 2 Narrative: Dressings to the right BKA stump/knee is on in place clean dry and intact she can actively flex and extend at the knee. dressing changed healing well no signs of infection Dressings to the left above the knee amputation stump is clean dry and intact. Dressing changed today healing well no signs of infection normal postoperative swelling and ecchymosis/bruising about the stump. Urinary Catheter Management: Riojas: Cath Placed During This Visit: yes, but has since been removed by the nurse Reason for Continuing Indwelling Catheter: Accurate Measurement of Urinary Output in Critically Ill Patients Urinary Catheter Date of Insertion: 11/04/24 Urinary Catheter Time of Insertion: 16:00 Date Urinary Catheter Removed: 11/06/24 Time Urinary Catheter Discontinued: 14:00 Data 11/08/24 04:55 11/08/24 04:55 Micro: Microbiology 11/05/24 17:02 Gram Stain - Final Knee - Right Anaerobic Culture - Preliminary Abscess Culture - Final 11/05/24 17:28 Gram Stain - Final Knee - Left Anaerobic Culture - Preliminary Abscess Culture - Final A&P Assessment and plan (1) Pain of amputation stump of left lower extremity: (2) Infection of amputation stump: (3) Infection of amputation stump, left lower extremity: (4) Septic prepatellar bursitis of right knee: (5) Prepatellar bursitis: (6) Bursitis due to bacterial infection: (7) Status post above-knee amputation of left lower extremity: (8) S/P right knee surgery: Plan AM labs reviewed Hemoglobin stable at 10.9?will continue to monitor, received PRBC yesterday per primary Internal medicine on board as primary Antibiotics per primary Pain control Dressings changed today incisions are healing well clean dry and intact no signs of infection or drainage normal postoperative swelling and bruising. Incision sites incision remains well-approximated with jose carlos Stable for discharge from orthopedic standpoint orthopedic surgery team will sign off at this time follow peripherally. If there is any question pertaining patient's care for free to contact orthopedics on-call. Appropriate discharge structures will be in patient's chart plan to follow-up in the office in 2 weeks dressings can be changed as needed at this point and can be left on in place until follow-up appointment. All questions answered. Patient understands and agrees with current plan. Questions answered. Once again reiterated importance of nonweightbearing on 2 the bilateral amputation sites to keep incisions all healing well and avoid dehiscence or wound breakdown. PDMP PDMP Reviewed: Not Reviewed Attestations 2 Medical Necessity Statement*: Ongoing care status post right knee irrigation debridement patellar bursal excision, left [id number] amputation Coding Level of Care Code Acute Code for [facility] Fwd Diagnoses Pain of amputation stump of left lower extremity T87.89; M79.605 Infection of amputation stump T87.40 Infection of amputation stump, left lower extremity T87.44 Septic prepatellar bursitis of right knee M71.161 Prepatellar bursitis M70.40 Bursitis due to bacterial infection M71.10; B96.89 Status post above-knee amputation of left lower extremity Z89.612 S/P right knee surgery Z98.890 Time Spent (min) 25
--- NOTE | 2024-11-08 14:34 | PM.PN ---
Subjective Subjective: seen today no acute events overnight Vitals/I&O/Wt Last Vital Signs Temp 98.2 F 11/08/24 11:00 Pulse 64 11/08/24 11:00 Resp 19 H 11/08/24 11:00 BP 181/89 11/08/24 11:00 Pulse Ox 99 11/08/24 11:00 O2 Del Method Room Air 11/08/24 11:00 11/07/24 11/08/24 11/08/24 22:59 06:59 14:59 Intake Total 700 / 1719.631 240 / 240 Output Total 1025 / 1225 Balance -325 / 494.631 240 / 240 Weight last 48 hrs Weight 67.767 kg Physical Exam Narrative: General: Alert oriented x 3 sitting up in bed. HEENT: PERRLA, pupils bilaterally equal and reactive, Chest: Normal vesicular breath sounds, no added sounds, equal good air entry bilaterally CVS: S1-S2 regular, no gross murmurs. Abdomen: Soft, nontender, bowel sounds present Neuro: No focal deficits grossly Extremities: stumps covered with bandage at this time. Urinary Catheter Management: Riojas: Cath Placed During This Visit: yes, but has since been removed by the nurse Reason for Continuing Indwelling Catheter: Accurate Measurement of Urinary Output in Critically Ill Patients Urinary Catheter Date of Insertion: 11/04/24 Urinary Catheter Time of Insertion: 16:00 Date Urinary Catheter Removed: 11/06/24 Time Urinary Catheter Discontinued: 14:00 Data 11/08/24 04:55 11/08/24 04:55 Micro: Microbiology 11/05/24 17:02 Gram Stain - Final Knee - Right Anaerobic Culture - Preliminary Abscess Culture - Final 11/05/24 17:28 Gram Stain - Final Knee - Left Anaerobic Culture - Preliminary Abscess Culture - Final A&P Assessment and plan (1) Hypertension: Off Cardene drip, discontinue clonidine which can cause increase the risk of rebound hypertension, will use isosorbide mononitrate along amlodipine and metoprolol Qualifiers: Hypertension type: unspecified Qualified Code(s): I10 - Essential (primary) hypertension (2) Leukocytosis: Patient present with significant leukocytosis She has a extensive history of wounds Repeat blood work ordered for this morning Obtain inflammatory markers Check urinalysis Start oral antibiotics while awaiting above results (3) Chronic kidney disease: Worsening kidney function noted, patient endorsing voiding urine, Monitor kidney function for now Qualifiers: Chronic kidney disease stage: unspecified stage Qualified Code(s): N18.9 - Chronic kidney disease, unspecified (4) Psychosis: No acute decompensation (5) Knee swelling: Patient will need drainage of right knee fluid collection Will consult Dr. Salas orthopedics Patient already on antibiotics leukocytosis trending down, no active fever Plan DVT prophylaxis: Hold anticoagulating agent patient will need drainage of right knee 11/03/2024 Creatinine 2.7 today. Baseline 1.7-1.8. Patient does have an FIONA at this time. Etiology unknown however possibility of vancomycin induced? Vanc trough 10.5. Consult nephrology MRI bilateral lower extremity reviewed: Evidence of osteomyelitis. Orthopedic surgery consulted. Plan for amputation and debridement today. Please see Ortho note for details. Patient will require extensive wound care, IV antibiotics were at least 6 weeks going forward after surgery. Will refer to LTAC for possible transfer. Patient initially admitted with suicidal ideation. Will discuss with psychiatry regarding further plan. At this time she does not endorse suicidal ideation. Continue Dilaudid for pain. Continue Klonopin for anxiety. Revised cardiac risk index: Score 2 points, 10.1% risk for 30-day mortality. Placed on normal saline 75 cc/h. will check echo as part of pre-op clearance. Patient does have a history of coronary disease with history of stents and 2020 after [place], hypertension hyperlipidemia. She was supposed have a stress test scheduled in 2021 but I do not believe it ever got completed. Patient is not cleared for surgery yet 11/04/2024 Creatinine 3.1 today. Unsure etiology. Possible ATN?. Will stop vancomycin and switch to IV linezolid. Nephrology following. Appreciate recommendations. Renal ultrasound reviewed. Will await further recommendations for today. ? Patient requires amputation for source control secondary to osteomyelitis. We are currently in the process of obtaining cardiac clearance. ? Echo shows normal LV size with borderline low ejection fraction 52%. Moderate hypokinesis of basal inferior wall segment. ? Patient states that her last coronary angiogram was done at [facility] close to [place]. She does not remember the name of the hospital. She states she had stents placed about 3 years ago. ? We will be requesting records. ? Cardiology consulted for cardiac clearance. Plan for possible stress test in AM. ? If optimized from cardiology standpoint and okay to proceed to surgery tentatively plan for amputation with orthopedic surgery as soon as cleared from cardiology standpoint.. Will keep patient n.p.o. at midnight tonight for stress test in a.m. if patient is unable to tolerate stress testing cardiology has no plans of proceeding to angiogram given active FIONA at this time. We will await for further recommendations. ? Discussed with orthopedic surgery. Once patient optimized from cardiology standpoint we will proceed with surgery. Ortho recommendations appreciated. ? Consult infectious disease for antibiotic recommendations going forward. ? Patient will need LTAC versus long-term placement after surgery for wound care and IV antibiotic administration. ? I had a conversation with patient on multiple occasions regarding proceeding with amputation to which she is agreeable to. Patient is not interested in going forward with wound care and continuing antibiotics. She has stated on various occasions that she has already tried that and knows where this is going to go and what will happen therefore she would like to proceed with amputation. Patient understands that she will need extensive wound care and a lot of care after surgery to ensure adequate healing of her surgical wounds. ? She does have back pain which is chronic. Will continue using Dilaudid 0.5 every 6 hours. I will add hydrocodone 5 mg every 4 hours as needed as well. ? Primary team is psychiatry. Medicine ID and orthopedic services are on consult. 11/05/2024 Discussed patient's cath results from [facility] with cardiology. Patient is chest pain-free and does not have any shortness of breath at this time. Patient not a candidate for angiogram secondary to FIONA. Cardiology has pleated preop evaluation. Patient okay to proceed to surgery with moderate to high acceptable risk at this time. Discussed with anesthesia as well. ? ID consulted for antibiotic guidance going forward. Will await for recommendations ? Patient will need extensive continued postop care, wound care, IV antibiotics to which she is agreeable to. ? I have had multiple discussions with patient regarding her behavior postop and she has assured me that she will comply. -Cr 2.6 today, improving - patient to go for surgery today afternoon. - NPO at this time. 11/06/2024 status post-op pain control continue abx as per ID recs plan to dc to [place] for 6 weeks IV Abx case management working on placement. creatinine improving pt denies chest pain wound care as per ortho surg 11/07/2024 pain control stop dilaudid continue fentanyl patch and oxy IR q4h had a discussion with patient to move towards a planned outpatient pain regimen as we near discharge. plan to dc to [place] for 6 weeks IV Abx case management working on placement. wound care as per ortho hemoglobin 7.0 this am, order 2 units prbc check hb in am transfer to [facility] today pt off precedex gtt since last night 11/08/2024 Pain management Continue antibiotics Awaiting placement See notes above for detail. PDMP PDMP Reviewed: Not Reviewed Attestations Medical Necessity Statement*: Pain management IV antibiotics and awaiting placement. Diagnoses Hypertension, unspecified type I10 Hypertension type: unspecified Leukocytosis D72.829 Chronic kidney disease N18.9 Chronic kidney disease stage: unspecified stage Psychosis F29 Knee swelling M25.469
[2024-11-08] MEDS: magnesium sulfate premix 2 GM/50 ML PIGGYBACK IV (15:22)
[2024-11-08] MEDS: HYDROmorphone 0.5 MG/0.5 ML INJ 1 MG IVP (15:56)
--- NOTE | 2024-11-08 16:39 | P.NPUPN_ITS ---
Subjective NPU 2 Subjective: Patient presented today reporting that things are going okay. She reported that life has been decent and that she has no emotional concerns. She reports that it has been somewhat frustrating dealing with her illness but she denies that she is in a place where she is feeling overly depressed or suicidal. She does endorse that she is having anxiety and she does endorse that the pain is challenging but she reports that she is going to make it through. We discussed looking at her medications to make sure that she is having the most appropriate anxiety and mood management through those medications. She denied any side effects to her medications. Mental Status Exam 2 MSE Comments: This is an overweight white female in hospital scrubs with limited grooming and eye contact with notable below-knee amputation bilaterally lying in hospital bed. No abnormal involuntary motor movements were appreciated. She was?uncooperative with exam in no acute distress.? Speech was normal in rate , slurred and normal in volume. ? Mood described as okay.. Affect was less restricted. Thought process was linear and logical. Thought content: Patient denied suicidal ideation and denied homicidal ideation today. There was no evidence of delusional thinking. She denied auditory or visual hallucinations and did not appear to be responding to internal stimuli. Attention and concentration appeared better. Insight remained poor. Judgment was fair at this time. Impulse control remained guarded. Vitals/I&O/Wt Last Vital Signs Temp 98.2 F 11/08/24 11:00 Pulse 64 11/08/24 11:00 Resp 19 H 11/08/24 11:00 BP 181/89 11/08/24 11:00 Pulse Ox 99 11/08/24 11:00 O2 Del Method Room Air 11/08/24 11:00 11/08/24 11/08/24 11/08/24 06:59 14:59 22:59 Intake Total 240 / 240 Balance 240 / 240 Weight last 48 hrs Weight 67.767 kg Physical Exam 2 Urinary Catheter Management: Riojas: Cath Placed During This Visit: yes, but has since been removed by the nurse Reason for Continuing Indwelling Catheter: Accurate Measurement of Urinary Output in Critically Ill Patients Urinary Catheter Date of Insertion: 11/04/24 Urinary Catheter Time of Insertion: 16:00 Date Urinary Catheter Removed: 11/06/24 Time Urinary Catheter Discontinued: 14:00 Data NPU 11/09/24 05:03 11/09/24 05:03 Micro: Microbiology 11/05/24 17:02 Gram Stain - Final Knee - Right Anaerobic Culture - Preliminary Abscess Culture - Final 11/05/24 17:28 Gram Stain - Final Knee - Left Anaerobic Culture - Preliminary Abscess Culture - Final Microbiology 11/05/24 17:02 Knee - Right Gram Stain - Final 11/05/24 17:02 Knee - Right Anaerobic Culture - Preliminary 11/05/24 17:02 Knee - Right Abscess Culture - Final 11/05/24 17:28 Knee - Left Gram Stain - Final 11/05/24 17:28 Knee - Left Anaerobic Culture - Preliminary 11/05/24 17:28 Knee - Left Abscess Culture - Final A&P Assessment and plan (1) Osteomyelitis of left lower extremity: (2) Wound dehiscence: (3) Cellulitis: (4) Bursitis due to bacterial infection: (5) Abscess of right lower extremity: (6) Prepatellar bursitis: (7) Dysthymic disorder: (8) Suicidal ideation: (9) ALEJANDRO (generalized anxiety disorder): (10) Panic attacks: Plan 44 year old with multiple medical problems with history of depression, anxiety and borderline personality traits endorsing suicidal ideation with history of noncompliance with medications. Patient in ICU. #1.? Engage patient in individual milieu and group therapy. #2?? Recommend sober living treatment at the highest level of care to which the patient is willing to commit #3??? Continue Klonopin .25mg bid,Continue seroquel 150mg at night, Continue Paxil 40mg daily. Patient would benefit from pain consult on an outpatient basis. #4?? TO-15 minute checks? #5?? Will attempt to gather collateral information PDMP PDMP Reviewed: Not Reviewed Involuntary Hold Information 2 96 Hour Hold: 96 Hour Involuntary Admission: No Attestations NPU 2 Medical Necessity Statement*: N/A. Please see primary team note for medical necessity. Coding Level of Care Code Acute Code for [facility] Fwd Diagnoses Osteomyelitis of left lower extremity M86.9 Wound dehiscence T81.30XA Cellulitis L03.90 Bursitis due to bacterial infection M71.10; B96.89 Abscess of right lower extremity L02.415 Prepatellar bursitis M70.40 Dysthymic disorder F34.1 Suicidal ideation R45.851 ALEJANDRO (generalized anxiety disorder) F41.1 Panic attacks F41.0
[2024-11-08 16:45] LABS: Glucose Point of Care 114 mg/dL (70-110)
--- NOTE | 2024-11-08 19:36 | P.PN_ITS ---
Subjective 2 Subjective: infectious disease progress note OR cx remains negative to date Medications: Reviewed: Yes Medication Review Details: Current Medications Amlodipine Besylate (Amlodipine 10 Mg Tablet) 5 mg PO DAILY [facility] Last Admin: 11/05/24 10:14 Dose: Not Given Camphor/Menthol/Phenol (Blistex Lip Oint 7 Gm Tube) 1 applic TOPICAL Q1H PRN PRN Reason: DRYNESS Cefazolin Sodium (Cefazolin 2,000 Mg Sdv) 2,000 mg IVP Q12H DAWSON; Protocol Last Admin: 11/06/24 03:17 Dose: 2,000 mg Glucagon (Glucagon 1 Mg/Ml Kit 1 Ml) 1 mg IM ONCE PRN; Protocol PRN Reason: Adult Acute Hypoglycemia Nursing Prot. Hydralazine HCl (Hydralazine 20 Mg/Ml Inj 1 Ml) 10 mg IVP Q4H PRN PRN Reason: SBP>180mmHg or DBP>110mmHG Hydromorphone HCl (Hydromorphone 0.5 Mg/0.5 Ml Inj) 1 mg IVP Q6H PRN PRN Reason: SEVERE PAIN Last Admin: 11/06/24 06:55 Dose: 1 mg Dextrose (D5w) 500 mls @ 0 mls/hr IV ONCE PRN; Protocol PRN Reason: Adult Acute Hypoglycemia Prot Dextrose (D10w) 125 mls @ 750 mls/hr IV PRN PRN; Protocol PRN Reason: Adult Acute Hypoglycemia Nursing Protocol Dextrose (D10w) 250 mls @ 1,000 mls/hr IV PRN PRN; Protocol PRN Reason: Adult Acute Hypoglycemia Nursing Protocol Lactated Ringer's (Lactated Ringers) 1,000 mls @ 100 mls/hr IV .Q10H [facility] Last Admin: 11/06/24 03:17 Dose: 100 mls/hr Dexmedetomidine/Sodium Chloride (Precedex) 400 mcg in 100 mls @ 0 mls/hr IV .Q0M [facility]; Protocol Last Admin: 11/06/24 06:56 Dose: 0.5 mcg/kg/hr, 8.06 mls/hr Insulin Human Lispro (Insulin Lispro 100 Unit/1 Ml) 0 unit SUBCUT WM&BEDTIME DAWSON; Protocol Last Admin: 11/06/24 08:15 Dose: 6 unit Isosorbide Mononitrate (Isosorbide Mononitrate 20 Mg Tablet) 20 mg PO BID [facility] Last Admin: 11/06/24 08:14 Dose: 20 mg Loperamide HCl (Loperamide 2 Mg Capsule) 2 mg PO Q6H PRN PRN Reason: DIARRHEA Metoprolol Tartrate (Metoprolol Tartrate 25 Mg Tablet) 25 mg PO BID@0900,2100 [facility] Last Admin: 11/06/24 08:15 Dose: 25 mg Nicotine (Nicotine 21 Mg Patch) 1 patch TRANSDERMA DAILY PRN PRN Reason: NICOTINE WITHDRAWAL Nicotine Polacrilex (Nicotine 2 Mg Gum) 2 mg BUCCAL Q2H PRN PRN Reason: NICOTINE WITHDRAWAL Olanzapine (Olanzapine 10 Mg Vial) 10 mg IM Q12H PRN PRN Reason: SEVERE AGITATION Last Admin: 11/05/24 20:53 Dose: 10 mg Ondansetron HCl (Ondansetron 4 Mg Tablet) 4 mg PO Q6H PRN PRN Reason: NAUSEA AND VOMITING Last Admin: 11/03/24 13:36 Dose: 4 mg Oxycodone/Acetaminophen (Oxycodone-Apap 5-325 Mg Tablet) 1 tab PO Q4H PRN PRN Reason: MODERATE PAIN Last Admin: 11/06/24 04:02 Dose: 1 tab Paroxetine HCl (Paroxetine 20 Mg Tablet) 40 mg PO DAILY [facility] Last Admin: 11/06/24 08:14 Dose: 40 mg Sodium Chloride (Sodium Chloride 0.9% 100 Ml Bag) 50 ml IV PRN PRN PRN Reason: Blood transfusion prime and flush Stop: 11/06/24 17:38 Vitals/I&O/Wt Last Vital Signs Temp 98.2 F 11/08/24 18:00 Pulse 80 11/08/24 18:00 Resp 18 11/08/24 18:00 BP 168/93 11/08/24 18:00 Pulse Ox 96 11/08/24 18:00 O2 Del Method Room Air 11/08/24 18:00 11/08/24 11/08/24 11/08/24 06:59 14:59 22:59 Intake Total 240 / 240 290 / 530 Output Total 200 / 200 Balance 240 / 240 90 / 330 Weight last 48 hrs Weight 67.767 kg Physical Exam 2 Narrative: General:asleep, currently sedated with Precedex in the ICU HEENT: PERRLA, pupils bilaterally equal and reactive, pallors not present Urinary Catheter Management: Riojas: Cath Placed During This Visit: yes, but has since been removed by the nurse Reason for Continuing Indwelling Catheter: Accurate Measurement of Urinary Output in Critically Ill Patients Urinary Catheter Date of Insertion: 11/04/24 Urinary Catheter Time of Insertion: 16:00 Date Urinary Catheter Removed: 11/06/24 Time Urinary Catheter Discontinued: 14:00 Data 11/08/24 04:55 11/08/24 04:55 Micro: Microbiology 11/05/24 17:02 Gram Stain - Final Knee - Right Anaerobic Culture - Preliminary Abscess Culture - Final 11/05/24 17:28 Gram Stain - Final Knee - Left Anaerobic Culture - Preliminary Abscess Culture - Final A&P Assessment and plan (1) Osteomyelitis of left lower extremity: (2) Wound dehiscence: (3) Cellulitis: (4) Bursitis due to bacterial infection: (5) Abscess of right lower extremity: (6) Prepatellar bursitis: Plan 44-year-old lady with multiple comorbidities as listed above presenting to the hospital with bilateral infectious prepatellar bursitis and left stump osteomyelitis. Associated wound dehiscence which has not healed since at least April 2024. Recommend to obtain Blood cultures, utility may be limited since she has been on Linezolid for treatment Status post I&D by general surgery In aug 2024, bone biopsy and culture taken on September 14, 2024 wound culture and Gram stain from the left BKA stump on 09/14/24 were with MSSA. left stump Bone biopsy and cx from right side were without growth. s/p treatment with Vanc/Zosyn--> iv cefazolin x 10 days followed by 6 weeks of oral cephalexin without any improvement. Transition to oral abx was needed due to mutliple social limitations as noted above. patient's continued attempts at ambulation on stump likely contributing to dehiscence of wounds Currently admitted since 11/01, initially to NPU, now on meidcine service MRI with evidence of persisting osteomyelitis and prepatellar bursitis on left and persisting prepatellar bursitis on right. Findings infectious vs inflammatory, given leukocytosis and above history, presumed to be infectious etiology with failure of recent outpatient abx. 11/01 suprficial wound cx with grp G streptoccus She is currently on treatment empirically with iv linezolid D/c linezolid Start cefazolin 2 g iv every 12h (renally dosed for cr cl of 29) given recovery of MSSA on past occassions and this organism likely to still be the culprit. Patient is planned for [facility] with orthopedics service Recommend to obtain OR cx to enable selection of abx at discharge anticipate discharge on prolonged course of iv abx of 4-6 weeks, but final recommendation to be based on review of op findings Highly recommend discharge to halfway facility with wound care management and iv abx administration capabilities when she is ready. will continue to follow 11/06/24: S/p AKA left leg and I&D of bursal abscess on 11/05. Tolerated procedure well. OR cx is pending. Blood cx negative thus far Picc line once blood cx remains negative for 48 hrs Continue cefazolin 2g iv every 12 hrs will follow 11/08/24: OR cx remain negative to date Blood cx negative to date PICc line placement increase cefazolin to 2g iv every 8 hrs now that creatinine cleranace is improving D/c recommended with cefazolin 2 g iv every 8 hrs pending path Anticipate 6 weeks of iv abx with weekly labs CBC, creat, LFT and CRP - fax to ID clinic for review Recommend D/c to SNF with wound care and iv abx infusion capabilities f/up ID clinic on December 08 at 2:00 pm Thank you for this consult- please call with any further questions or concerns PDMP PDMP Reviewed: Not Reviewed Attestations 2 Medical Necessity Statement*: per admitting Coding Level of Care Code Acute Code for [facility] Fwd Diagnoses Osteomyelitis of left lower extremity M86.9 Wound dehiscence T81.30XA Cellulitis L03.90 Bursitis due to bacterial infection M71.10; B96.89 Abscess of right lower extremity L02.415 Prepatellar bursitis M70.40
[2024-11-08] MEDS: quetiapine 300 mg Tablet 150 MG PO (20:35)
[2024-11-08] MEDS: hyDRALAzine 20 mg/mL INJ 1 mL 10 MG IVP (20:36)
[2024-11-08 20:58] LABS: Glucose Point of Care 144 mg/dL (70-110)
[2024-11-09] VITALS (12 sets, daily range): BP systolic 99–159; BP diastolic 59–78; PULSE 60–73; RESP 14–20; TEMP 36.4–36.9; O2SAT 96–98
[2024-11-09] MEDS: acetaminophen 500 mg Tablet PO (02:00)
[2024-11-09] MEDS: oxyCODONE-APAP 5-325 mg Tablet 1 TAB PO ×5 (03:50→21:38)
[2024-11-09] MEDS: HYDROmorphone 0.5 MG/0.5 ML INJ IVP ×4 (05:21→23:26)
[2024-11-09 06:00] LABS: Basophils % 0.3 %; Eosinophils # 0.2 10^3/uL (0.0-0.8); Eosinophils % 1.9 %; Lymphocytes # 1.8 10^3/uL (0.8-4.8); Lymphocytes % 19.4 %; Mean Corpuscular HGB Conc 33.1 g/dL (30-55); Mean Corpuscular Hemoglobin 29.3 pg (27-33); Mean Corpuscular Volume 88.4 fl (85-98); Mean Platelet Volume 8.8 fL (7.4-10.4); Monocytes # 0.6 10^3/uL (0.2-0.9); Monocytes % 6.8 %; Neutrophils # 6.58 10^3/uL (1.8-7.7); Neutrophils % 70.4 %; Nucleated Red Blood Cells % 0 %; Platelet Count 359 10^3/cmm (157-399); Red Blood Count 3.62 10^6/uL (3.85-5.65); Red Cell Distribution Width 13.8 % (12.1-15.1); White Blood Count 9.35 10^3/uL (3.29-11.43)
[2024-11-09 06:22] LABS: Anion Gap 14.5 (5-19); Blood Urea Nitrogen 27 mg/dL (6-20); Calcium 8.4 mg/dL (8.5-10.5); Carbon Dioxide 25 mmol/L (22-29); Chloride 101 mmol/L (98-107); Glomerular Filtration Rate 22.8 mL/min (90-130); Glucose 151 mg/dL (65-115); Osmolality Calculated 292 mOsm/kg (285-295); Potassium 3.5 mmol/L (3.5-5.1); Sodium 137 mmol/L (136-145)
[2024-11-09 06:48] LABS: Glucose Point of Care 100 mg/dL (70-110)
[2024-11-09] MEDS: pantoprazole DR 40 mg Tablet PO (08:02)
[2024-11-09] MEDS: isosorbide mononitrate 20 mg Tablet PO ×2 (08:04→17:47)
[2024-11-09] MEDS: duloxetine 20 mg Capsule PO ×2 (08:04→17:47)
[2024-11-09] MEDS: PARoxetine 20 mg Tablet 40 MG PO (08:04)
[2024-11-09] MEDS: amlodipine 5 mg Tablet 2.5 MG PO (08:04)
[2024-11-09] MEDS: ceFAZolin 2,000 mg SDV 2000 MG IVP ×3 (08:05→23:26)
[2024-11-09 11:12] LABS: Glucose Point of Care 207 mg/dL (70-110)
[2024-11-09] MEDS: insulin lispro 100 unit/1 mL SUBCUT (11:31)
--- NOTE | 2024-11-09 11:33 | PM.PN ---
Subjective Subjective: seen today feels better today has appetite is starting to come back Vitals/I&O/Wt Last Vital Signs Temp 97.7 F 11/09/24 08:00 Pulse 63 11/09/24 08:00 Resp 18 11/09/24 11:31 BP 159/78 11/09/24 08:00 Pulse Ox 97 11/09/24 11:31 O2 Del Method Room Air 11/09/24 08:00 11/08/24 11/09/24 11/09/24 22:59 06:59 14:59 Intake Total 290 / 530 360 / 360 Output Total 200 / 200 Balance 90 / 330 360 / 360 Weight last 48 hrs Weight 67.767 kg Physical Exam Narrative: General: Alert oriented x 3 sitting up in bed. HEENT: PERRLA, pupils bilaterally equal and reactive, Chest: cta b/l CVS: S1-S2 regular, no gross murmurs. Abdomen: Soft, nontender, bowel sounds present Neuro: No focal deficits grossly Extremities: stumps covered with bandage at this time. Urinary Catheter Management: Riojas: Cath Placed During This Visit: yes, but has since been removed by the nurse Reason for Continuing Indwelling Catheter: Accurate Measurement of Urinary Output in Critically Ill Patients Urinary Catheter Date of Insertion: 11/04/24 Urinary Catheter Time of Insertion: 16:00 Date Urinary Catheter Removed: 11/06/24 Time Urinary Catheter Discontinued: 14:00 Data 11/09/24 05:03 11/09/24 05:03 Micro: Microbiology 11/05/24 17:02 Gram Stain - Final Knee - Right Anaerobic Culture - Preliminary Abscess Culture - Final 11/05/24 17:28 Gram Stain - Final Knee - Left Anaerobic Culture - Preliminary Abscess Culture - Final A&P Assessment and plan (1) Hypertension: Off Cardene drip, discontinue clonidine which can cause increase the risk of rebound hypertension, will use isosorbide mononitrate along amlodipine and metoprolol Qualifiers: Hypertension type: unspecified Qualified Code(s): I10 - Essential (primary) hypertension (2) Leukocytosis: Patient present with significant leukocytosis She has a extensive history of wounds Repeat blood work ordered for this morning Obtain inflammatory markers Check urinalysis Start oral antibiotics while awaiting above results (3) Chronic kidney disease: Worsening kidney function noted, patient endorsing voiding urine, Monitor kidney function for now Qualifiers: Chronic kidney disease stage: unspecified stage Qualified Code(s): N18.9 - Chronic kidney disease, unspecified (4) Psychosis: No acute decompensation (5) Knee swelling: Patient will need drainage of right knee fluid collection Will consult Dr. Salas orthopedics Patient already on antibiotics leukocytosis trending down, no active fever Plan DVT prophylaxis: Hold anticoagulating agent patient will need drainage of right knee 11/03/2024 Creatinine 2.7 today. Baseline 1.7-1.8. Patient does have an FIONA at this time. Etiology unknown however possibility of vancomycin induced? Vanc trough 10.5. Consult nephrology MRI bilateral lower extremity reviewed: Evidence of osteomyelitis. Orthopedic surgery consulted. Plan for amputation and debridement today. Please see Ortho note for details. Patient will require extensive wound care, IV antibiotics were at least 6 weeks going forward after surgery. Will refer to LTAC for possible transfer. Patient initially admitted with suicidal ideation. Will discuss with psychiatry regarding further plan. At this time she does not endorse suicidal ideation. Continue Dilaudid for pain. Continue Klonopin for anxiety. Revised cardiac risk index: Score 2 points, 10.1% risk for 30-day mortality. Placed on normal saline 75 cc/h. will check echo as part of pre-op clearance. Patient does have a history of coronary disease with history of stents and 2020 after [place], hypertension hyperlipidemia. She was supposed have a stress test scheduled in 2021 but I do not believe it ever got completed. Patient is not cleared for surgery yet 11/04/2024 Creatinine 3.1 today. Unsure etiology. Possible ATN?. Will stop vancomycin and switch to IV linezolid. Nephrology following. Appreciate recommendations. Renal ultrasound reviewed. Will await further recommendations for today. ? Patient requires amputation for source control secondary to osteomyelitis. We are currently in the process of obtaining cardiac clearance. ? Echo shows normal LV size with borderline low ejection fraction 52%. Moderate hypokinesis of basal inferior wall segment. ? Patient states that her last coronary angiogram was done at [facility] close to [place]. She does not remember the name of the hospital. She states she had stents placed about 3 years ago. ? We will be requesting records. ? Cardiology consulted for cardiac clearance. Plan for possible stress test in AM. ? If optimized from cardiology standpoint and okay to proceed to surgery tentatively plan for amputation with orthopedic surgery as soon as cleared from cardiology standpoint.. Will keep patient n.p.o. at midnight tonight for stress test in a.m. if patient is unable to tolerate stress testing cardiology has no plans of proceeding to angiogram given active FIONA at this time. We will await for further recommendations. ? Discussed with orthopedic surgery. Once patient optimized from cardiology standpoint we will proceed with surgery. Ortho recommendations appreciated. ? Consult infectious disease for antibiotic recommendations going forward. ? Patient will need LTAC versus halfway placement after surgery for wound care and IV antibiotic administration. ? I had a conversation with patient on multiple occasions regarding proceeding with amputation to which she is agreeable to. Patient is not interested in going forward with wound care and continuing antibiotics. She has stated on various occasions that she has already tried that and knows where this is going to go and what will happen therefore she would like to proceed with amputation. Patient understands that she will need extensive wound care and a lot of care after surgery to ensure adequate healing of her surgical wounds. ? She does have back pain which is chronic. Will continue using Dilaudid 0.5 every 6 hours. I will add hydrocodone 5 mg every 4 hours as needed as well. ? Primary team is psychiatry. Medicine ID and orthopedic services are on consult. 11/05/2024 Discussed patient's cath results from [facility] with cardiology. Patient is chest pain-free and does not have any shortness of breath at this time. Patient not a candidate for angiogram secondary to FIONA. Cardiology has pleated preop evaluation. Patient okay to proceed to surgery with moderate to high acceptable risk at this time. Discussed with anesthesia as well. ? ID consulted for antibiotic guidance going forward. Will await for recommendations ? Patient will need extensive continued postop care, wound care, IV antibiotics to which she is agreeable to. ? I have had multiple discussions with patient regarding her behavior postop and she has assured me that she will comply. -Cr 2.6 today, improving - patient to go for surgery today afternoon. - NPO at this time. 11/06/2024 status post-op pain control continue abx as per ID recs plan to dc to [facility] for 6 weeks IV Abx case management working on placement. creatinine improving pt denies chest pain wound care as per ortho surg 11/07/2024 pain control stop dilaudid continue fentanyl patch and oxy IR q4h had a discussion with patient to move towards a planned outpatient pain regimen as we near discharge. plan to dc to [facility] for 6 weeks IV Abx case management working on placement. wound care as per ortho hemoglobin 7.0 this am, order 2 units prbc check hb in am transfer [facility] today pt off precedex gtt since last night 11/08/2024 Pain management Continue antibiotics Awaiting placement See notes above for detail. 11/09/2024 Pain management Continue antibiotics Awaiting placement See notes above for detail. add miralax as per pt request hb stable will check labs q3 days going forward. PDMP PDMP Reviewed: Not Reviewed Attestations Medical Necessity Statement*: awaiting placement Diagnoses Hypertension, unspecified type I10 Hypertension type: unspecified Leukocytosis D72.829 Chronic kidney disease N18.9 Chronic kidney disease stage: unspecified stage Psychosis F29 Knee swelling M25.469
[2024-11-09] MEDS: polyethylene glycol 3350 Pkt 17 gm PO (11:42)
--- NOTE | 2024-11-09 12:03 | P.PN_ITS ---
Subjective 2 Subjective: no new c/o Medications: Reviewed: Yes Vitals/I&O/Wt Last Vital Signs Temp 97.5 F L 11/09/24 11:42 Pulse 65 11/09/24 11:42 Resp 20 H 11/09/24 11:42 BP 130/60 11/09/24 11:42 Pulse Ox 98 11/09/24 11:42 O2 Del Method Room Air 11/09/24 11:42 11/08/24 11/09/24 11/09/24 22:59 06:59 14:59 Intake Total 290 / 530 360 / 360 Output Total 200 / 200 Balance 90 / 330 360 / 360 Weight last 48 hrs Weight 67.767 kg Physical Exam 2 Narrative: Vital signs noted. Comfortable sitting in a chair no apparent distress. HEENT normocephalic atraumatic. Neck is supple no JVP. Lungs -clear b/l Heart is regular positive S1-S2. Abdomen is soft nontender nondistended positive bowel sounds. Extremities RT BKA bandaged, Left AKA bandaged Neuro awake alert oriented x 3 , moves Urinary Catheter Management: Riojas: Cath Placed During This Visit: yes, but has since been removed by the nurse Reason for Continuing Indwelling Catheter: Accurate Measurement of Urinary Output in Critically Ill Patients Urinary Catheter Date of Insertion: 11/04/24 Urinary Catheter Time of Insertion: 16:00 Date Urinary Catheter Removed: 11/06/24 Time Urinary Catheter Discontinued: 14:00 Data 11/09/24 05:03 11/09/24 05:03 Micro: Microbiology 11/05/24 17:02 Gram Stain - Final Knee - Right Anaerobic Culture - Preliminary Abscess Culture - Final 11/05/24 17:28 Gram Stain - Final Knee - Left Anaerobic Culture - Preliminary Abscess Culture - Final A&P Assessment and plan (1) Acute kidney injury superimposed on CKD: 44-year-old lady with IDDM, peripheral vascular disease status post bilateral BKA's here with stump infection. 1. Patient has CKD baseline creatinine approximately 1.5 mg/dL likely due to diabetes. Cr stable in 2 range 2. Acute kidney injury: Urinalysis reviewed has 4+ protein. 1+ blood. Patient has had 3+ protein in her urine for over 2 years. Currently her urinalysis also has significant granular casts can be consistent with ATN. Creatinine and urine output improving with IV fluids. Patient's urine sodium was 30 with a chloride of 18 urine creatinine of 160. Continue to monitor and IV fluids. -normal CPK. -normal complements. - Avoid NSAIDs. -Most likely FIONA is from prerenal azotemia versus ATN, Cr stable in 2 range 3. anemia-patient has a ferritin of 1385 and a 19% saturation. No need for IV iron. Epogen is not effective with acute kidney injury will monitor 4. She is status post a right BKA debridement and left AKA surgery. Further as per orthopedics and vascular. 6. Blood pressure well-controlled with medications The patient was seen and examined using audiovisual equipment with the aid of a nurse. The patient consented to telehealth. Plan See above. PDMP PDMP Reviewed: Not Reviewed Attestations 2 Medical Necessity Statement*: per heather Coding Level of Care Code Acute Code for Chg Fwd Diagnoses Acute kidney injury superimposed on CKD N17.9; N18.9
--- NOTE | 2024-11-09 12:03 | XR_ITS ---
WS: [id number] Exam: XR chest 1V portable [id number] Date/Time of Exam: 11/09/2024 12:35 PM Reason For Exam: Post PICC insertion Comparison 11/03/2024. A right-sided PIC line has been placed and ends at the cavoatrial junction in satisfactory position. The lungs are fully inflated and clear. Chronic elevation of the LEFT diaphragm. Mild cardiac enlargement unchanged. Unremarkable bony structures. Single healed posterior LEFT rib fracture. XR/XR chest 1V portable [id number] IMPRESSION: 1. Right-sided PICC line ending at the cavoatrial junction in satisfactory posi tion. 2. Mild cardiac enlargement. No acute finding.
--- NOTE | 2024-11-09 13:16 | PICC.NOTE ---
Single lumen PICC placed to right basilic vein. Referred to vascular access nurse for PICC placement due to need for IV antibiotics x 6 weeks. Risks and benefits discussed and informed consent obtained from pt. Right arm assessed with right baslic vein measuring 4.1 mm, straight, and apparent best choice for placement. Using sterile technique and MST, right basilic vein accessed x 1 stick. Mid-arm circumference measured 10 cm from right AC 25 cm. Trimmed cath 40 cm with 1 cm external length noted. CXR shows tip in cavoatrial junction, in good position for use per radiologist. Line secured with stat-lock. Insertion site covered with Biopatch and TSM. Report given to bedside nurse, Kenrick, FRED
[2024-11-09 16:38] LABS: Glucose Point of Care 87 mg/dL (70-110)
--- NOTE | 2024-11-09 18:24 | W.PM.NPUPNS ---
Subjective NPU Subjective: Patient presents today reporting that things are going okay. She continues to manage that the situation much better than she has in the past. She continues to work with the treatment team for pain management and is managing her anxiety reasonably well. She is identifying the possibilities for treatment including possibly going to a rehab versus having to stay in the hospital to receive a couple weeks of IV antibiotics with an understanding. She denies any side effects or medication. Mental Status Exam MSE Comments: This is an overweight white female in hospital scrubs with limited grooming and eye contact with notable below-knee amputation bilaterally lying in hospital bed. No abnormal involuntary motor movements were appreciated. She was?uncooperative with exam in no acute distress.? Speech was normal in rate , slurred and normal in volume. ? Mood described as okay.. Affect was less restricted. Thought process was linear and logical. Thought content: Patient denied suicidal ideation and denied homicidal ideation today. There was no evidence of delusional thinking. She denied auditory or visual hallucinations and did not appear to be responding to internal stimuli. Attention and concentration appeared better. Insight remained poor. Judgment was fair at this time. Impulse control remained guarded. Vitals/I&O/Wt Last Vital Signs Temp 97.5 F L 11/09/24 16:06 Pulse 68 11/09/24 16:06 Resp 18 11/09/24 17:47 BP 148/70 11/09/24 16:06 Pulse Ox 97 11/09/24 17:47 O2 Del Method Room Air 11/09/24 16:06 11/09/24 11/09/24 11/09/24 06:59 14:59 22:59 Intake Total 600 / 600 480 / 1080 Balance 600 / 600 480 / 1080 Weight last 48 hrs Weight 67.767 kg Physical Exam Urinary Catheter Management: Riojas: Cath Placed During This Visit: yes, but has since been removed by the nurse Reason for Continuing Indwelling Catheter: Accurate Measurement of Urinary Output in Critically Ill Patients Urinary Catheter Date of Insertion: 11/04/24 Urinary Catheter Time of Insertion: 16:00 Date Urinary Catheter Removed: 11/06/24 Time Urinary Catheter Discontinued: 14:00 Data NPU 11/09/24 05:03 11/09/24 05:03 Micro: Microbiology 11/05/24 17:28 Gram Stain - Final Knee - Left Anaerobic Culture - Preliminary Abscess Culture - Final 11/05/24 17:02 Gram Stain - Final Knee - Right Anaerobic Culture - Preliminary Abscess Culture - Final Microbiology 11/05/24 17:28 Knee - Left Gram Stain - Final 11/05/24 17:28 Knee - Left Anaerobic Culture - Preliminary 11/05/24 17:28 Knee - Left Abscess Culture - Final 11/05/24 17:02 Knee - Right Gram Stain - Final 11/05/24 17:02 Knee - Right Anaerobic Culture - Preliminary 11/05/24 17:02 Knee - Right Abscess Culture - Final A&P Assessment and plan (1) Osteomyelitis of left lower extremity: (2) Wound dehiscence: (3) Cellulitis: (4) Bursitis due to bacterial infection: (5) Abscess of right lower extremity: (6) Prepatellar bursitis: (7) Dysthymic disorder: (8) Suicidal ideation: (9) ALEJANDRO (generalized anxiety disorder): (10) Panic attacks: Plan 44 year old with multiple medical problems with history of depression, anxiety and borderline personality traits endorsing suicidal ideation with history of noncompliance with medications. Patient in ICU. #1.? Engage patient in individual milieu and group therapy. #2?? Recommend sober living treatment at the highest level of care to which the patient is willing to commit #3??? Continue Klonopin .25mg bid,Continue seroquel 150mg at night, Continue Paxil 40mg daily. Patient would benefit from pain consult on an outpatient basis. #4?? TO-15 minute checks? #5?? we will consider signing off soon. PDMP PDMP Reviewed: Not Reviewed Involuntary Hold Information 96 Hour Hold: 96 Hour Involuntary Admission: No Attestations NPU Medical Necessity Statement*: N/A. Please see primary team note for medical necessity. Coding Level of Care Code Acute Code for [facility] Fwd Diagnoses Osteomyelitis of left lower extremity M86.9 Wound dehiscence T81.30XA Cellulitis L03.90 Bursitis due to bacterial infection M71.10; B96.89 Abscess of right lower extremity L02.415 Prepatellar bursitis M70.40 Dysthymic disorder F34.1 Suicidal ideation R45.851 ALEJANDRO (generalized anxiety disorder) F41.1 Panic attacks F41.0
[2024-11-09 20:44] LABS: Glucose Point of Care 124 mg/dL (70-110)
[2024-11-09] MEDS: ondansetron 2 mg/ML SDV 2 mL 4 MG IVP (20:44)
[2024-11-09] MEDS: fentaNYL 50 mcg Patch 1 PATCH TRANSDERMA (21:37)
[2024-11-09] MEDS: metoprolol tartrate 25 mg Tablet PO (21:38)
[2024-11-09] MEDS: quetiapine 300 mg Tablet 150 MG PO (21:38)
[2024-11-10] VITALS (8 sets, daily range): BP systolic 119–164; BP diastolic 73–82; PULSE 57–65; RESP 16–18; TEMP 36.2–36.9; O2SAT 96–100
[2024-11-10] MEDS: oxyCODONE-APAP 5-325 mg Tablet 1 TAB PO ×4 (01:07→23:13)
[2024-11-10 06:41] LABS: Glucose Point of Care 134 mg/dL (70-110)
[2024-11-10] MEDS: HYDROmorphone 0.5 MG/0.5 ML INJ IVP ×3 (07:33→23:13)
[2024-11-10] MEDS: metoprolol tartrate 25 mg Tablet PO ×2 (08:43→20:10)
[2024-11-10] MEDS: ceFAZolin 2,000 mg SDV 2000 MG IVP ×3 (08:43→23:13)
[2024-11-10] MEDS: isosorbide mononitrate 20 mg Tablet PO ×2 (08:43→17:30)
[2024-11-10] MEDS: PARoxetine 20 mg Tablet 40 MG PO (08:43)
[2024-11-10] MEDS: duloxetine 20 mg Capsule PO ×2 (08:43→17:30)
[2024-11-10] MEDS: amlodipine 5 mg Tablet 2.5 MG PO (08:43)
[2024-11-10] MEDS: polyethylene glycol 3350 Pkt 17 gm PO (08:43)
[2024-11-10] MEDS: pantoprazole DR 40 mg Tablet PO (08:43)
[2024-11-10 10:54] LABS: Glucose Point of Care 135 mg/dL (70-110)
--- NOTE | 2024-11-10 13:29 | P.PN_ITS ---
Subjective 2 Subjective: no new complaints Medications: Reviewed: Yes Vitals/I&O/Wt Last Vital Signs Temp 97.2 F L 11/10/24 11:45 Pulse 61 11/10/24 11:45 Resp 18 11/10/24 11:45 BP 164/82 11/10/24 11:45 Pulse Ox 98 11/10/24 11:45 O2 Del Method Room Air 11/10/24 11:45 11/09/24 11/10/24 11/10/24 22:59 06:59 14:59 Intake Total 480 / 1080 240 / 240 Balance 480 / 1080 240 / 240 Weight last 48 hrs Weight 67.784 kg Physical Exam 2 Narrative: Vital signs noted. Comfortable sitting in a chair no apparent distress. HEENT normocephalic atraumatic. Neck is supple no JVP. Lungs -clear b/l Heart is regular positive S1-S2. Abdomen is soft nontender nondistended positive bowel sounds. Extremities RT BKA bandaged, Left AKA bandaged Neuro awake alert oriented x 3 , moves Urinary Catheter Management: Riojas: Cath Placed During This Visit: yes, but has since been removed by the nurse Reason for Continuing Indwelling Catheter: Accurate Measurement of Urinary Output in Critically Ill Patients Urinary Catheter Date of Insertion: 11/04/24 Urinary Catheter Time of Insertion: 16:00 Date Urinary Catheter Removed: 11/06/24 Time Urinary Catheter Discontinued: 14:00 Data 11/09/24 05:03 11/09/24 05:03 Micro: Microbiology 11/05/24 17:02 Gram Stain - Final Knee - Right Anaerobic Culture - Preliminary Abscess Culture - Final 11/05/24 17:28 Gram Stain - Final Knee - Left Anaerobic Culture - Preliminary Abscess Culture - Final A&P Assessment and plan (1) Acute kidney injury superimposed on CKD: 44-year-old lady with IDDM, peripheral vascular disease status post bilateral BKA's here with stump infection. 1. Patient has CKD baseline creatinine approximately 1.5 mg/dL likely due to diabetes. Cr stable in 2 range 2. Acute kidney injury: Urinalysis reviewed has 4+ protein. 1+ blood. Patient has had 3+ protein in her urine for over 2 years. Currently her urinalysis also has significant granular casts can be consistent with ATN. Creatinine and urine output improving with IV fluids. Patient's urine sodium was 30 with a chloride of 18 urine creatinine of 160. Continue to monitor and IV fluids. -normal CPK. -normal complements. - Avoid NSAIDs. -Most likely FIONA is from prerenal azotemia versus ATN, Cr stable in 2 range 3. anemia-patient has a ferritin of 1385 and a 19% saturation. No need for IV iron. Epogen is not effective with acute kidney injury will monitor 4. She is status post a right BKA debridement and left AKA surgery. Further as per orthopedics and vascular. 6. Blood pressure well-controlled with medications The patient was seen and examined using audiovisual equipment with the aid of a nurse. The patient consented to telehealth. Plan See above. PDMP PDMP Reviewed: Not Reviewed Attestations 2 Medical Necessity Statement*: per medicne Coding Level of Care Code Acute Code for Chg Fwd Diagnoses Acute kidney injury superimposed on CKD N17.9; N18.9
--- NOTE | 2024-11-10 14:00 | PM.PN ---
Subjective Subjective: seen today no acute events overnight Vitals/I&O/Wt Last Vital Signs Temp 97.2 F L 11/10/24 11:45 Pulse 61 11/10/24 11:45 Resp 18 11/10/24 11:45 BP 164/82 11/10/24 11:45 Pulse Ox 98 11/10/24 11:45 O2 Del Method Room Air 11/10/24 11:45 11/09/24 11/10/24 11/10/24 22:59 06:59 14:59 Intake Total 480 / 1080 240 / 240 Balance 480 / 1080 240 / 240 Weight last 48 hrs Weight 67.784 kg Physical Exam Narrative: General: Alert oriented x 3 sitting up in bed. HEENT: PERRLA, pupils bilaterally equal and reactive, Chest: cta b/l CVS: S1-S2 regular, no gross murmurs. Abdomen: Soft, nontender, bowel sounds present Neuro: No focal deficits grossly Extremities: stumps covered with bandage at this time. Urinary Catheter Management: Riojas: Cath Placed During This Visit: yes, but has since been removed by the nurse Reason for Continuing Indwelling Catheter: Accurate Measurement of Urinary Output in Critically Ill Patients Urinary Catheter Date of Insertion: 11/04/24 Urinary Catheter Time of Insertion: 16:00 Date Urinary Catheter Removed: 11/06/24 Time Urinary Catheter Discontinued: 14:00 Data 11/09/24 05:03 11/09/24 05:03 Micro: Microbiology 11/05/24 17:02 Gram Stain - Final Knee - Right Anaerobic Culture - Preliminary Abscess Culture - Final 11/05/24 17:28 Gram Stain - Final Knee - Left Anaerobic Culture - Preliminary Abscess Culture - Final A&P Assessment and plan (1) Hypertension: Off Cardene drip, discontinue clonidine which can cause increase the risk of rebound hypertension, will use isosorbide mononitrate along amlodipine and metoprolol Qualifiers: Hypertension type: unspecified Qualified Code(s): I10 - Essential (primary) hypertension (2) Leukocytosis: Patient present with significant leukocytosis She has a extensive history of wounds Repeat blood work ordered for this morning Obtain inflammatory markers Check urinalysis Start oral antibiotics while awaiting above results (3) Chronic kidney disease: Worsening kidney function noted, patient endorsing voiding urine, Monitor kidney function for now Qualifiers: Chronic kidney disease stage: unspecified stage Qualified Code(s): N18.9 - Chronic kidney disease, unspecified (4) Psychosis: No acute decompensation (5) Knee swelling: Patient will need drainage of right knee fluid collection Will consult Dr. Salas orthopedics Patient already on antibiotics leukocytosis trending down, no active fever Plan DVT prophylaxis: Hold anticoagulating agent patient will need drainage of right knee 11/03/2024 Creatinine 2.7 today. Baseline 1.7-1.8. Patient does have an FIONA at this time. Etiology unknown however possibility of vancomycin induced? Vanc trough 10.5. Consult nephrology MRI bilateral lower extremity reviewed: Evidence of osteomyelitis. Orthopedic surgery consulted. Plan for amputation and debridement today. Please see Ortho note for details. Patient will require extensive wound care, IV antibiotics were at least 6 weeks going forward after surgery. Will refer to LTAC for possible transfer. Patient initially admitted with suicidal ideation. Will discuss with psychiatry regarding further plan. At this time she does not endorse suicidal ideation. Continue Dilaudid for pain. Continue Klonopin for anxiety. Revised cardiac risk index: Score 2 points, 10.1% risk for 30-day mortality. Placed on normal saline 75 cc/h. will check echo as part of pre-op clearance. Patient does have a history of coronary disease with history of stents and 2020 after [place], hypertension hyperlipidemia. She was supposed have a stress test scheduled in 2021 but I do not believe it ever got completed. Patient is not cleared for surgery yet 11/04/2024 Creatinine 3.1 today. Unsure etiology. Possible ATN?. Will stop vancomycin and switch to IV linezolid. Nephrology following. Appreciate recommendations. Renal ultrasound reviewed. Will await further recommendations for today. ? Patient requires amputation for source control secondary to osteomyelitis. We are currently in the process of obtaining cardiac clearance. ? Echo shows normal LV size with borderline low ejection fraction 52%. Moderate hypokinesis of basal inferior wall segment. ? Patient states that her last coronary angiogram was done at [facility] close to [place]. She does not remember the name of the hospital. She states she had stents placed about 3 years ago. ? We will be requesting records. ? Cardiology consulted for cardiac clearance. Plan for possible stress test in AM. ? If optimized from cardiology standpoint and okay to proceed to surgery tentatively plan for amputation with orthopedic surgery as soon as cleared from cardiology standpoint.. Will keep patient n.p.o. at midnight tonight for stress test in a.m. if patient is unable to tolerate stress testing cardiology has no plans of proceeding to angiogram given active FIONA at this time. We will await for further recommendations. ? Discussed with orthopedic surgery. Once patient optimized from cardiology standpoint we will proceed with surgery. Ortho recommendations appreciated. ? Consult infectious disease for antibiotic recommendations going forward. ? Patient will need LTAC versus prison placement after surgery for wound care and IV antibiotic administration. ? I had a conversation with patient on multiple occasions regarding proceeding with amputation to which she is agreeable to. Patient is not interested in going forward with wound care and continuing antibiotics. She has stated on various occasions that she has already tried that and knows where this is going to go and what will happen therefore she would like to proceed with amputation. Patient understands that she will need extensive wound care and a lot of care after surgery to ensure adequate healing of her surgical wounds. ? She does have back pain which is chronic. Will continue using Dilaudid 0.5 every 6 hours. I will add hydrocodone 5 mg every 4 hours as needed as well. ? Primary team is psychiatry. Medicine ID and orthopedic services are on consult. 11/05/2024 Discussed patient's cath results from [facility] with cardiology. Patient is chest pain-free and does not have any shortness of breath at this time. Patient not a candidate for angiogram secondary to FIONA. Cardiology has pleated preop evaluation. Patient okay to proceed to surgery with moderate to high acceptable risk at this time. Discussed with anesthesia as well. ? ID consulted for antibiotic guidance going forward. Will await for recommendations ? Patient will need extensive continued postop care, wound care, IV antibiotics to which she is agreeable to. ? I have had multiple discussions with patient regarding her behavior postop and she has assured me that she will comply. -Cr 2.6 today, improving - patient to go for surgery today afternoon. - NPO at this time. 11/06/2024 status post-op pain control continue abx as per ID recs plan to dc to [place] for 6 weeks IV Abx case management working on placement. creatinine improving pt denies chest pain wound care as per ortho surg 11/07/2024 pain control stop dilaudid continue fentanyl patch and oxy IR q4h had a discussion with patient to move towards a planned outpatient pain regimen as we near discharge. plan to dc to [place] for 6 weeks IV Abx case management working on placement. wound care as per ortho hemoglobin 7.0 this am, order 2 units prbc check hb in am transfer to [facility] today pt off precedex gtt since last night 11/08/2024 Pain management Continue antibiotics Awaiting placement See notes above for detail. 11/09/2024 Pain management Continue antibiotics Awaiting placement See notes above for detail. add miralax as per pt request hb stable will check labs q3 days going forward. 11/10/2024 Pain management Continue antibiotics Awaiting placement See notes above for detail. hb stable will check labs q3 days going forward. PDMP PDMP Reviewed: Not Reviewed Attestations Medical Necessity Statement*: awaiting placement Diagnoses Hypertension, unspecified type I10 Hypertension type: unspecified Leukocytosis D72.829 Chronic kidney disease N18.9 Chronic kidney disease stage: unspecified stage Psychosis F29 Knee swelling M25.469
[2024-11-10] MEDS: ondansetron 2 mg/ML SDV 2 mL 4 MG IVP (15:56)
[2024-11-10 16:38] LABS: Glucose Point of Care 111 mg/dL (70-110)
--- NOTE | 2024-11-10 18:39 | W.PM.NPUPNS ---
Subjective NPU Subjective: Patient presented today reporting that she is feeling much better. She reports her medications are at a good place and that she is aware of what is next. She reports that she is going to a rehab to get stronger and to get her IV antibiotics. She reports that there is a plan for about 2 weeks of IV antibiotics along with continued rehab to strengthen her body lower body from the now [id number] amputation on the left side. Her significant other was present and they both concur that this is the best approach for them and they are happy to have the opportunity. We discussed that psychiatry would be signing off and that we will be available if needed otherwise but the plan is for her to discharge likely tomorrow she denied any side effects to the medication. Mental Status Exam MSE Comments: This is an overweight white female in hospital scrubs with limited grooming and eye contact with notable below-knee amputation bilaterally lying in hospital bed. No abnormal involuntary motor movements were appreciated. She was?uncooperative with exam in no acute distress.? Speech was normal in rate , slurred and normal in volume. ? Mood described as okay.. Affect was less restricted. Thought process was linear and logical. Thought content: Patient denied suicidal ideation and denied homicidal ideation today. There was no evidence of delusional thinking. She denied auditory or visual hallucinations and did not appear to be responding to internal stimuli. Attention and concentration appeared better. Insight remained poor. Judgment was fair at this time. Impulse control remained guarded. Vitals/I&O/Wt Last Vital Signs Temp 97.5 F L 11/10/24 15:31 Pulse 59 L 11/10/24 15:31 Resp 18 11/10/24 15:31 BP 147/74 11/10/24 15:31 Pulse Ox 100 11/10/24 15:31 O2 Del Method Room Air 11/10/24 15:31 11/10/24 11/10/24 14:59 Intake Total 600 / 600 Balance 600 / 600 Weight last 48 hrs Weight 67.784 kg Physical Exam Urinary Catheter Management: Riojas: Cath Placed During This Visit: yes, but has since been removed by the nurse Reason for Continuing Indwelling Catheter: Accurate Measurement of Urinary Output in Critically Ill Patients Urinary Catheter Date of Insertion: 11/04/24 Urinary Catheter Time of Insertion: 16:00 Date Urinary Catheter Removed: 11/06/24 Time Urinary Catheter Discontinued: 14:00 Data NPU 11/09/24 05:03 11/09/24 05:03 Micro: Microbiology 11/06/24 04:05 Blood Culture - Final Blood NO GROWTH AFTER 5 DAYS 11/06/24 04:00 Blood Culture - Final Blood NO GROWTH AFTER 5 DAYS 11/05/24 17:02 Gram Stain - Final Knee - Right Anaerobic Culture - Preliminary Abscess Culture - Final 11/05/24 17:28 Gram Stain - Final Knee - Left Anaerobic Culture - Preliminary Abscess Culture - Final Microbiology 11/06/24 04:05 Blood Blood Culture - Final NO GROWTH AFTER 5 DAYS 11/06/24 04:00 Blood Blood Culture - Final NO GROWTH AFTER 5 DAYS 11/05/24 17:02 Knee - Right Gram Stain - Final 11/05/24 17:02 Knee - Right Anaerobic Culture - Preliminary 11/05/24 17:02 Knee - Right Abscess Culture - Final 11/05/24 17:28 Knee - Left Gram Stain - Final 11/05/24 17:28 Knee - Left Anaerobic Culture - Preliminary 11/05/24 17:28 Knee - Left Abscess Culture - Final A&P Assessment and plan (1) Osteomyelitis of left lower extremity: (2) Wound dehiscence: (3) Cellulitis: (4) Bursitis due to bacterial infection: (5) Abscess of right lower extremity: (6) Prepatellar bursitis: (7) Dysthymic disorder: (8) Suicidal ideation: (9) ALEJANDRO (generalized anxiety disorder): (10) Panic attacks: Plan 44 year old with multiple medical problems with history of depression, anxiety and borderline personality traits endorsing suicidal ideation with history of noncompliance with medications. Patient moved to [facility] some days ago. 1. Continue current medication. 2. Continue Klonopin .25mg bid,Continue seroquel 150mg at night, Continue Paxil 40mg daily. Pain management per primary team. 3. Maintain current observational status. 4. Patient stable from a psychiatric standpoint. Agree with discharge to rehab.? 5. Psychiatry signing off. PDMP PDMP Reviewed: Not Reviewed Involuntary Hold Information 96 Hour Hold: 96 Hour Involuntary Admission: No Attestations NPU Medical Necessity Statement*: N/A. Please see primary team note for medical necessity. Coding Level of Care Code Acute Code for [facility] Diagnoses Osteomyelitis of left lower extremity M86.9 Wound dehiscence T81.30XA Cellulitis L03.90 Bursitis due to bacterial infection M71.10; B96.89 Abscess of right lower extremity L02.415 Prepatellar bursitis M70.40 Dysthymic disorder F34.1 Suicidal ideation R45.851 ALEJANDRO (generalized anxiety disorder) F41.1 Panic attacks F41.0
[2024-11-10] MEDS: quetiapine 300 mg Tablet 150 MG PO (20:10)
[2024-11-10 20:46] LABS: Glucose Point of Care 111 mg/dL (70-110)
[2024-11-11] VITALS (7 sets, daily range): BP systolic 91–166; BP diastolic 49–78; PULSE 50–96; RESP 17–18; TEMP 36.5–37.1; O2SAT 92–99
[2024-11-11] MEDS: oxyCODONE-APAP 5-325 mg Tablet 1 TAB PO ×2 (06:16→11:25)
[2024-11-11] MEDS: ondansetron 4 MG Tablet PO (06:18)
--- NOTE | 2024-11-11 06:31 | PC.NURSE ---
Morning labs pulled from PICC line.
[2024-11-11 06:55] LABS: Blood Urea Nitrogen 25 mg/dL (6-20); Calcium 8.3 mg/dL (8.5-10.5); Carbon Dioxide 26 mmol/L (22-29); Chloride 97 mmol/L (98-107); Glomerular Filtration Rate 26.8 mL/min (90-130); Glucose 94 mg/dL (65-115); Osmolality Calculated 278 mOsm/kg (285-295); Sodium 132 mmol/L (136-145)
[2024-11-11 06:57] LABS: Anion Gap 13.1 (5-19); Potassium 4.1 mmol/L (3.5-5.1)
[2024-11-11 07:17] LABS: Glucose Point of Care 90 mg/dL (70-110)
[2024-11-11] MEDS: HYDROmorphone 0.5 MG/0.5 ML INJ IVP (07:55)
--- NOTE | 2024-11-11 08:15 | P.PN_ITS ---
Subjective 2 Subjective: NO NEW COMPLAINTS Medications: Reviewed: Yes Vitals/I&O/Wt Last Vital Signs Temp 98.2 F 11/11/24 07:44 Pulse 50 L 11/11/24 07:44 Resp 17 11/11/24 07:44 BP 126/60 11/11/24 07:44 Pulse Ox 98 11/11/24 07:44 O2 Del Method Room Air 11/11/24 07:44 Weight last 48 hrs Weight 67.784 kg Physical Exam 2 Narrative: Vital signs noted. Comfortable sitting in a chair no apparent distress. HEENT normocephalic atraumatic. Neck is supple no JVP. Lungs -clear b/l Heart is regular positive S1-S2. Abdomen is soft nontender nondistended positive bowel sounds. Extremities RT BKA bandaged, Left AKA bandaged Neuro awake alert oriented x 3 , moves Urinary Catheter Management: Riojas: Cath Placed During This Visit: yes, but has since been removed by the nurse Reason for Continuing Indwelling Catheter: Accurate Measurement of Urinary Output in Critically Ill Patients Urinary Catheter Date of Insertion: 11/04/24 Urinary Catheter Time of Insertion: 16:00 Date Urinary Catheter Removed: 11/06/24 Time Urinary Catheter Discontinued: 14:00 Data 11/09/24 05:03 11/11/24 06:30 Micro: Microbiology 11/06/24 04:05 Blood Culture - Final Blood NO GROWTH AFTER 5 DAYS 11/06/24 04:00 Blood Culture - Final Blood NO GROWTH AFTER 5 DAYS 11/05/24 17:02 Gram Stain - Final Knee - Right Anaerobic Culture - Preliminary Abscess Culture - Final 11/05/24 17:28 Gram Stain - Final Knee - Left Anaerobic Culture - Preliminary Abscess Culture - Final A&P Assessment and plan (1) Acute kidney injury superimposed on CKD: 44-year-old lady with IDDM, peripheral vascular disease status post bilateral BKA's here with stump infection. 1. Patient has CKD baseline creatinine approximately 1.5 mg/dL likely due to diabetes. Cr stable in 2 range 2. Acute kidney injury: Urinalysis reviewed has 4+ protein. 1+ blood. Patient has had 3+ protein in her urine for over 2 years. Currently her urinalysis also has significant granular casts can be consistent with ATN. Creatinine and urine output improving with IV fluids. Patient's urine sodium was 30 with a chloride of 18 urine creatinine of 160. Continue to monitor and IV fluids. -normal CPK. -normal complements. - Avoid NSAIDs. -Most likely FIONA is from prerenal azotemia versus ATN, Cr stable in 2 range 3. anemia-patient has a ferritin of 1385 and a 19% saturation. No need for IV iron. Epogen is not effective with acute kidney injury will monitor 4. She is status post a right BKA debridement and left AKA surgery. Further as per orthopedics and vascular. 6. Blood pressure well-controlled with medications The patient was seen and examined using audiovisual equipment with the aid of a nurse. The patient consented to telehealth. Plan See above. PDMP PDMP Reviewed: Not Reviewed Attestations 2 Medical Necessity Statement*: per heather Coding Level of Care Code Acute Code for [facility]wd Diagnoses Acute kidney injury superimposed on CKD N17.9; N18.9
--- NOTE | 2024-11-11 08:48 | P.TS_ITS ---
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 40 mg PO DAILY [facility] Last Admin: 11/10/24 08:43 Dose: 40 mg Polyethylene Glycol (Polyethylene Glycol 3350 Pkt 17 Gm) 17 gm PO DAILY [facility] Last Admin: 11/10/24 08:43 Dose: 17 gm Quetiapine Fumarate (Quetiapine 300 Mg Tablet) 150 mg PO BEDTIME [facility] Last Admin: 11/10/24 20:10 Dose: 150 mg Discontinued Medications Acetaminophen (Acetaminophen 325 Mg Tablet) 650 mg PO Q4H PRN PRN Reason: MILD PAIN Last Admin: 11/02/24 20:54 Dose: 650 mg Amlodipine Besylate (Amlodipine 10 Mg Tablet) 10 mg PO ONCE ONE Stop: 11/01/24 02:07 Last Admin: 11/01/24 02:29 Dose: 10 mg Amlodipine Besylate (Amlodipine 10 Mg Tablet) 10 mg PO DAILY [facility] Last Admin: 11/03/24 11:03 Dose: 10 mg Amlodipine Besylate (Amlodipine 10 Mg Tablet) 5 mg PO DAILY [facility] Last Admin: 11/05/24 10:14 Dose: Not Given Benztropine Mesylate (Benztropine 1 Mg Tablet) 1 mg PO BID PRN PRN Reason: Mild Extrapyramidal symptoms Cefazolin Sodium (Cefazolin 1,000 Mg Sdv) 1,000 mg IVP Q8H [facility] Last Admin: 11/02/24 04:32 Dose: 1,000 mg Cefazolin Sodium (Cefazolin 2,000 Mg Sdv) 2,000 mg IVP Q12H [facility]; Protocol Last Admin: 11/08/24 15:22 Dose: 2,000 mg Cefazolin Sodium (Cefazolin 2,000 Mg Sdv) 2,000 mg IVP ONCE ONE; Protocol Stop: 11/05/24 16:58 Last Admin: 11/05/24 16:58 Dose: 2,000 mg Cephalexin HCl (Cephalexin 500 Mg Capsule) 500 mg PO QID [facility]; Protocol Clonazepam (Clonazepam 0.5 Mg Tablet) 0.25 mg PO BID [facility] Last Admin: 11/01/24 20:19 Dose: Not Given Clonazepam (Clonazepam 0.5 Mg Tablet) 0.25 mg PO BID [facility] Last Admin: 11/05/24 19:26 Dose: 0.25 mg Clonidine HCl (Clonidine 0.1 Mg Tablet) 0.1 mg PO Q4H PRN PRN Reason: HYPERTENSION Last Admin: 11/01/24 04:25 Dose: 0.1 mg Clonidine HCl (Clonidine 0.1 Mg Tablet) 0.1 mg PO ONCE ONE Stop: 11/01/24 06:44 Last Admin: 11/01/24 07:04 Dose: 0.1 mg Clonidine HCl (Clonidine 0.1 Mg Tablet) 0.1 mg PO TID [facility] Last Admin: 11/01/24 21:37 Dose: 0.1 mg Dexamethasone (Dexamethasone 4 Mg/Ml Inj) Confirm Administered Dose 4 mg .ROUTE .STK-MED ONE Stop: 11/03/24 14:42 Diphenhydramine HCl (Diphenhydramine 50 Mg/Ml Sdv 1ml) 50 mg IM ONCE ONE Stop: 10/31/24 21:45 Last Admin: 10/31/24 22:13 Dose: 50 mg Diphenhydramine HCl (Diphenhydramine 50 Mg/Ml Sdv 1ml) 50 mg IM ONCE PRN PRN Reason: Severe Extrapyramidal Symptoms Diphenhydramine HCl (Diphenhydramine 50 Mg/Ml Sdv 1ml) 50 mg IM Q4H PRN PRN Reason: Severe Aggression Last Admin: 11/02/24 21:13 Dose: 50 mg Diphenhydramine HCl (Diphenhydramine 25 Mg Capsule) 25 mg PO NOW ONE Stop: 11/07/24 14:52 Last Admin: 11/07/24 15:06 Dose: 25 mg Ephedrine Sulfate (Ephedrine 50 Mg/Ml Inj) Confirm Administered Dose 50 mg .ROUTE .STK-MED ONE Stop: 11/05/24 17:09 Fentanyl (Fentanyl 50 Mcg/Ml Inj 2ml) Confirm Administered Dose 100 mcg .ROUTE .STK-MED ONE Stop: 11/03/24 14:38 Fentanyl (Fentanyl 50 Mcg/Ml Inj 2ml) Confirm Administered Dose 100 mcg .ROUTE .STK-MED ONE Stop: 11/05/24 16:22 Fentanyl (Fentanyl 50 Mcg Patch) 1 patch TRANSDERMA Q72H [facility] Last Admin: 11/09/24 21:37 Dose: 1 patch Haloperidol (Haloperidol 5 Mg Tablet) 5 mg PO Q4H PRN PRN Reason: AGITATION Haloperidol Lactate (Haloperidol Inj 5 Mg/Ml Inj 1 Ml) 5 mg IM ONCE ONE Stop: 10/31/24 21:44 Last Admin: 10/31/24 22:14 Dose: 5 mg Haloperidol Lactate (Haloperidol Inj 5 Mg/Ml Inj 1 Ml) 5 mg IM Q4H PRN PRN Reason: Severe Aggression Hydromorphone HCl (Hydromorphone 0.5 Mg/0.5 Ml Inj) 0.5 mg IVP Q8H PRN PRN Reason: SEVERE PAIN Last Admin: 11/02/24 18:57 Dose: 0.5 mg Hydromorphone HCl (Hydromorphone 0.5 Mg/0.5 Ml Inj) 1 mg IVP ONCE ONE Stop: 11/02/24 21:31 Last Admin: 11/02/24 21:33 Dose: 1 mg Hydromorphone HCl (Hydromorphone 0.5 Mg/0.5 Ml Inj) 0.5 mg IVP Q6H PRN PRN Reason: SEVERE PAIN Last Admin: 11/04/24 22:16 Dose: 0.5 mg Hydromorphone HCl (Hydromorphone 0.5 Mg/0.5 Ml Inj) 1 mg IVP ONCE ONE Stop: 11/03/24 05:23 Last Admin: 11/03/24 05:26 Dose: 1 mg Hydromorphone HCl (Hydromorphone 0.5 Mg/0.5 Ml Inj) 0.5 mg IVP ONCE ONE Stop: 11/03/24 13:47 Last Admin: 11/03/24 13:54 Dose: 0.5 mg Hydromorphone HCl (Hydromorphone 0.5 Mg/0.5 Ml Inj) 0.5 mg IVP ONCE ONE Stop: 11/03/24 16:23 Last Admin: 11/03/24 16:35 Dose: 0.5 mg Hydromorphone HCl (Hydromorphone 0.5 Mg/0.5 Ml Inj) 0.5 mg IVP ONCE ONE Stop: 11/04/24 01:06 Last Admin: 11/04/24 01:08 Dose: 0.5 mg Hydromorphone HCl (Hydromorphone 0.5 Mg/0.5 Ml Inj) 0.5 mg IVP ONCE ONE Stop: 11/04/24 04:13 Last Admin: 11/04/24 04:17 Dose: Not Given Hydromorphone HCl (Hydromorphone 0.5 Mg/0.5 Ml Inj) Confirm Administered Dose 0.5 mg .ROUTE .STK-MED ONE Stop: 11/04/24 04:10 Last Admin: 11/04/24 04:16 Dose: 0.5 mg Hydromorphone HCl (Hydromorphone 0.5 Mg/0.5 Ml Inj) 1 mg IVP Q8H PRN PRN Reason: SEVERE PAIN Last Admin: 11/05/24 13:47 Dose: 1 mg Hydromorphone HCl (Hydromorphone 1 Mg/Ml Inj 1ml) 1 mg IVP ONCE ONE Stop: 11/05/24 04:07 Last Admin: 11/05/24 04:39 Dose: 1 mg Hydromorphone HCl (Hydromorphone 0.5 Mg/0.5 Ml Inj) 1 mg IVP ONCE ONE Stop: 11/05/24 13:43 Last Admin: 11/05/24 13:54 Dose: Not Given Hydromorphone HCl (Hydromorphone 1 Mg/Ml Inj 1ml) Confirm Administered Dose 1 mg .ROUTE .STK-MED ONE Stop: 11/05/24 17:01 Hydromorphone HCl (Hydromorphone 0.5 Mg/0.5 Ml Inj) 1 mg IVP Q6H PRN PRN Reason: SEVERE PAIN Last Admin: 11/07/24 03:22 Dose: 1 mg Hydromorphone HCl (Hydromorphone 0.5 Mg/0.5 Ml Inj) 1 mg IVP ONCE ONE Stop: 11/06/24 11:21 Last Admin: 11/06/24 11:38 Dose: 1 mg Hydromorphone HCl (Hydromorphone 0.5 Mg/0.5 Ml Inj) 0.5 mg IVP ONCE ONE Stop: 11/06/24 16:36 Last Admin: 11/06/24 16:40 Dose: 0.5 mg Hydromorphone HCl (Hydromorphone 0.5 Mg/0.5 Ml Inj) 0.5 mg IVP ONCE ONE Stop: 11/07/24 21:33 Last Admin: 11/07/24 21:37 Dose: 0.5 mg Hydromorphone HCl (Hydromorphone 0.5 Mg/0.5 Ml Inj) 0.5 mg IVP ONCE ONE Stop: 11/08/24 13:00 Last Admin: 11/08/24 13:16 Dose: 0.5 mg Hydromorphone HCl (Hydromorphone 0.5 Mg/0.5 Ml Inj) 1 mg IVP ONCE ONE Stop: 11/08/24 15:39 Last Admin: 11/08/24 15:56 Dose: 1 mg Hydroxyzine Pamoate (Hydroxyzine 25 Mg Capsule) 50 mg PO Q6H PRN PRN Reason: ANXIETY Last Admin: 11/03/24 05:15 Dose: 50 mg Nicardipine/Sodium Chloride (Cardene) 20 mg in 200 mls @ 0 mls/hr IV .Q0M [facility]; Protocol Cefazolin Sodium 1,000 mg/ (Sodium Chloride) 50 mls @ 150 mls/hr IV Q8H [facility]; Protocol Last Admin: 11/01/24 13:52 Dose: Not Given Vancomycin HCl 1,000 mg/ (Sodium Chloride) 250 mls @ 250 mls/hr IV ONCE ONE Stop: 11/02/24 09:14 Last Infusion: 11/02/24 10:20 Dose: Infused Vancomycin HCl 1,000 mg/ (Sodium Chloride) 250 mls @ 250 mls/hr IV ONCE ONE Stop: 11/03/24 11:59 Last Infusion: 11/03/24 12:25 Dose: Infused Lidocaine HCl (Xylocaine) Confirm Administered Dose 10 mls @ as directed .ROUTE .STK-MED ONE Stop: 11/03/24 14:39 Lidocaine HCl (Xylocaine) Confirm Administered Dose 20 mls @ as directed .ROUTE .STK-MED ONE Stop: 11/03/24 14:41 Last Admin: 11/03/24 18:02 Dose: Not Given Sodium Chloride (Sodium Chloride 0.9%) 1,000 mls @ 75 mls/hr IV .[id number] [facility] Last Infusion: 11/04/24 10:52 Dose: 0 mls/hr Dexmedetomidine/Sodium Chloride (Precedex) 400 mcg in 100 mls @ 0 mls/hr IV .Q0M [facility]; Protocol Last Titration: 11/05/24 19:00 Dose: Infused Lactated Ringer's (Lactated Ringers) 1,000 mls @ 100 mls/hr IV .Q10H [facility] Last Infusion: 11/08/24 11:10 Dose: Infused Linezolid (Zyvox Premix) 600 mg in 300 mls @ 300 mls/hr IV Q12H [facility]; Protocol Last Infusion: 11/05/24 13:14 Dose: Infused Lidocaine HCl (Xylocaine) Confirm Administered Dose 20 mls @ as directed .ROUTE .STK-MED ONE Stop: 11/05/24 15:29 Albumin Human (Albumin) Confirm Administered Dose 12.5 gm in 250 mls @ as directed .ROUTE .[facility]-MED ONE Stop: 11/05/24 17:08 Sterile Water (Water) Confirm Administered Dose 10 mls @ as directed .ROUTE .[facility]-MED ONE Stop: 11/05/24 20:50 Last Admin: 11/05/24 21:10 Dose: Not Given Dexmedetomidine/Sodium Chloride (Precedex) 400 mcg in 100 mls @ 0 mls/hr IV .Q0M [facility]; Protocol Last Titration: 11/07/24 07:35 Dose: 0 mcg/kg/hr, 0 mls/hr Sodium Chloride (Sodium Chloride 0.9% (100 Ml)) Confirm Administered Dose 100 mls @ as directed .ROUTE .[facility]-MED ONE Stop: 11/07/24 14:05 Sodium Chloride (Sodium Chloride 0.9% (100 Ml)) Confirm Administered Dose 100 mls @ as directed .ROUTE .[facility]-MED ONE Stop: 11/07/24 18:19 Last Admin: 11/08/24 01:19 Dose: Not Given Magnesium Sulfate (Magnesium Sulfate Premix) 2 gm in 50 mls @ 50 mls/hr IV ONCE ONE Stop: 11/08/24 15:35 Last Infusion: 11/08/24 18:03 Dose: Infused Ketamine HCl (Ketamine 50 Mg/Ml Syr 1 Ml) Confirm Administered Dose 50 mg .ROUTE .STK-MED ONE Stop: 11/05/24 16:19 Lidocaine HCl (Lidocaine 1% 10 Ml Inj) 20 ml INJECTION ONCE ONE Stop: 11/05/24 17:02 Last Admin: 11/05/24 17:02 Dose: 20 ml Lorazepam (Lorazepam 2 Mg/Ml Inj 1 Ml) 2 mg IM ONCE ONE Stop: 10/31/24 21:44 Last Admin: 10/31/24 22:14 Dose: 2 mg Lorazepam (Lorazepam 2 Mg/Ml Inj 1 Ml) 2 mg IM Q4H PRN PRN Reason: Severe Aggression Last Admin: 11/03/24 13:54 Dose: 2 mg Lorazepam (Lorazepam 2 Mg/Ml Inj 1 Ml) 2 mg IVP ONCE ONE Stop: 11/04/24 01:20 Last Admin: 11/04/24 01:20 Dose: 2 mg Lorazepam (Lorazepam 2 Mg/Ml Inj 1 Ml) Confirm Administered Dose 2 mg .ROUTE .STK-MED ONE Stop: 11/04/24 01:23 Lorazepam (Lorazepam 2 Mg/Ml Inj 1 Ml) 2 mg IVP ONCE ONE Stop: 11/04/24 04:14 Last Admin: 11/04/24 04:17 Dose: Not Given Lorazepam (Lorazepam 2 Mg/Ml Inj 1 Ml) Confirm Administered Dose 2 mg .ROUTE .STK-MED ONE Stop: 11/04/24 04:10 Last Admin: 11/04/24 04:16 Dose: 2 mg Midazolam HCl (Midazolam 1 Mg/Ml Inj 2 Ml) Confirm Administered Dose 2 mg .ROUTE .STK-MED ONE Stop: 11/05/24 16:22 Midazolam HCl (Midazolam 1 Mg/Ml Inj 2 Ml) Confirm Administered Dose 2 mg .ROUTE .STK-MED ONE Stop: 11/05/24 16:23 Olanzapine (Olanzapine 5 Mg Odt) 5 mg PO Q4H PRN PRN Reason: Agitation/Psychosis Last Admin: 11/05/24 04:52 Dose: 5 mg Olanzapine (Olanzapine 10 Mg Vial) 10 mg IM ONCE ONE Stop: 11/04/24 01:20 Last Admin: 11/04/24 01:20 Dose: 10 mg Olanzapine (Olanzapine 10 Mg Vial) Confirm Administered Dose 10 mg .ROUTE .STK- MED ONE Stop: 11/04/24 01:23 Olanzapine (Olanzapine 10 Mg Vial) Confirm Administered Dose 10 mg .ROUTE .STK- MED ONE Stop: 11/05/24 20:50 Last Admin: 11/05/24 21:10 Dose: Not Given Ondansetron HCl (Ondansetron 2 Mg/Ml Sdv 2 Ml) Confirm Administered Dose 4 mg .ROUTE .STK-MED ONE Stop: 11/03/24 14:42 Oxycodone/Acetaminophen (Oxycodone-Apap 5-325 Mg Tablet) 1 tab PO ONCE ONE Stop: 11/01/24 13:25 Last Admin: 11/01/24 13:53 Dose: 1 tab Paroxetine HCl (Paroxetine 20 Mg Tablet) 40 mg PO DAILY [facility] Last Admin: 11/04/24 09:08 Dose: 40 mg Potassium Chloride (Potassium Chloride Er 20 Meq Tablet) 40 meq PO ONCE ONE Stop: 11/01/24 11:43 Last Admin: 11/01/24 12:30 Dose: 40 meq Potassium Chloride (Potassium Chloride Er 20 Meq Tablet) 40 meq PO ONCE ONE Stop: 11/02/24 05:01 Last Admin: 11/02/24 05:24 Dose: 40 meq Prochlorperazine Edisylate (Prochlorperazine 10 Mg/2 Ml Inj) 5 mg IVP ONCE ONE Stop: 11/03/24 00:28 Last Admin: 11/03/24 01:16 Dose: 5 mg Propofol (Propofol 10 Mg/Ml Sdv 20 Ml) Confirm Administered Dose 200 mg .ROUTE .STK-MED ONE Stop: 11/03/24 14:38 Propofol (Propofol 10 Mg/Ml Sdv 20 Ml) Confirm Administered Dose 200 mg .ROUTE .STK-MED ONE Stop: 11/05/24 16:22 Rocuronium [place] (Rocuronium 10 Mg/Ml Inj 5ml) Confirm Administered Dose 50 mg .ROUTE .STK-MED ONE Stop: 11/03/24 14:42 Sodium Chloride (Sodium Chloride 0.9% 100 Ml Bag) 50 ml IV PRN PRN PRN Reason: Blood transfusion prime and flush Stop: 11/06/24 17:38 Sodium Chloride (Sodium Chloride 0.9% 100 Ml Bag) 50 ml IV PRN PRN PRN Reason: Blood transfusion prime and flush Stop: 11/08/24 13:26 Last Admin: 11/07/24 15:08 Dose: 50 ml Succinylcholine Chloride (Succinylcholine 20 Mg/Ml Sdv 10ml) Confirm Administered Dose 200 mg .ROUTE .STK-MED ONE Stop: 11/03/24 14:42 Tranexamic Acid (Tranexamic Acid 1,000 Mg/10ml Sdv) Confirm Administered Dose 1,000 mg .ROUTE .STK-MED ONE Stop: 11/05/24 16:58 Tranexamic Acid (Tranexamic Acid 1,000 Mg/10ml Sdv) 1,000 mg IV ONCE ONE Stop: 11/05/24 17:03 Last Admin: 11/05/24 16:58 Dose: 1,000 mg Trazodone HCl (Trazodone 50 Mg Tablet) 50 mg PO BEDTIME PRN PRN Reason: SLEEP Last Admin: 11/03/24 21:54 Dose: 50 mg Vancomycin HCl (Vancomycin 1,000 Mg Sdv (Pharmacy Mix)) 0 mg XX PRN PRN PRN Reason: Pharmacy to Dose Vancomycin HCl (Vancomycin 1,000 Mg Sdv) Confirm Administered Dose 2,000 mg .ROUTE .STK-MED ONE Stop: 11/03/24 14:40 Last Admin: 11/03/24 18:01 Dose: Not Given Vancomycin HCl (Vancomycin Add-[place] 1,000 Mg Vial) Confirm Administered Dose 2,000 mg .ROUTE .STK-MED ONE Stop: 11/05/24 15:29 Last Admin: 11/05/24 17:02 Dose: 2,000 mg Allergies morphine Allergy (Verified 09/12/24 20:19) ALGY-Difficulty Breathing sulfamethoxazole (From Bactrim) Allergy (Verified 09/12/24 20:19) ADR-Vomiting trimethoprim (From Bactrim) Allergy (Verified 09/12/24 20:19) ADR-Vomiting Home Medications cyclobenzaprine 10 mg tablet 10 mg PO TID #30 tabs 06/03/24 [Rx Confirmed 11/02/24] duloxetine 20 mg capsule,delayed release 20 mg PO BID 30 days #60 caps 06/03/24 [Rx Confirmed 11/02/24] hydroxyzine pamoate 25 mg capsule 50 mg (2 x 25 mg) PO Q6H PRN Anxiety 30 days #120 caps 06/03/24 [Rx Confirmed 11/02/24] pantoprazole 40 mg tablet,delayed release 40 mg PO DAILY 30 days #30 tabs 06/03/24 [Rx Confirmed 11/02/24] paroxetine HCl 20 mg tablet 40 mg (2 x 20 mg) PO DAILY 30 days #60 tabs 06/03/24 [Rx Confirmed 11/02/24] ropinirole 1 mg tablet 1 mg PO BEDTIME 30 days #30 tabs 06/03/24 [Rx Confirmed 11/02/24] quetiapine 100 mg tablet 100 mg PO BEDTIME 09/13/24 [History Confirmed 11/02/24] amlodipine 10 mg tablet 10 mg PO DAILY 11/01/24 [History Confirmed 11/01/24] dicyclomine 10 mg capsule 10 mg PO QID 11/02/24 [History Confirmed 11/02/24] Discharge Plan Discharge Patient Disposition: Xfer LT Condition: Stable Prescriptions: No Action ropinirole 1 mg Tablet 1 mg PO BEDTIME 30 Days Qty: 30 1RF paroxetine HCl 20 mg Tablet 40 mg PO DAILY 30 Days Qty: 60 1RF pantoprazole 40 mg Tablet,Delayed Release (Dr/Ec) 40 mg PO DAILY 30 Days Qty: 30 1RF hydroxyzine pamoate 25 mg Capsule 50 mg PO Q6H PRN (Reason: Anxiety) 30 Days Qty: 120 1RF duloxetine 20 mg Capsule,Delayed Release(Dr/Ec) 20 mg PO BID 30 Days Qty: 60 1RF cyclobenzaprine 10 mg Tablet 10 mg PO TID Qty: 30 0RF quetiapine 100 mg tablet 100 mg PO BEDTIME amlodipine 10 mg tablet 10 mg PO DAILY dicyclomine 10 mg capsule 10 mg PO QID Referrals: [facility] [Provider Group] - 12/08/24 2:00 pm Yaya Salas DO [Physician] - (2-3wks) Roger Salas PA [Physician Milling Machine Tender] - Monika Simpson MD [Primary Care Provider] - Patient Instructions: Acute Wound Care (DC), Opioid Safety, Post Anesthesia Care Activity Restrictions/Additional Instructions: Orthopedic discharge instructions: Patient to be nonweightbearing to the bilateral lower extremity amputation sites to avoid wound breakdown Change dressings as needed otherwise can leave dressings on in place until follow-up appointment Pain control per primary DVT prophylaxis per primary Follow-up in orthopedic office in 2 to 3 weeks Contact orthopedic office for any questions or concerns Transfer Attestations Time Spent in Transfer Care: greater than 30 min Status at Transfer: Cognitive status at transfer: cognitively intact ; Behavioral status at transfer: cooperative ; Quality Metrics Clinical Quality Measures [ No reported AMI, CVA or VTE this stay] Coding Level of Care Code 72106 Total time (in minutes) for Discharge: 60 Diagnoses Acute kidney injury superimposed on CKD N17.9; N18.9
[2024-11-11] MEDS: duloxetine 20 mg Capsule PO (08:59)
[2024-11-11] MEDS: pantoprazole DR 40 mg Tablet PO (09:00)
[2024-11-11] MEDS: PARoxetine 20 mg Tablet 40 MG PO (09:00)
[2024-11-11] MEDS: ceFAZolin 2,000 mg SDV 2000 MG IVP (09:01)
[2024-11-11] MEDS: polyethylene glycol 3350 Pkt 17 gm PO (09:17)
[2024-11-11] MEDS: isosorbide mononitrate 20 mg Tablet PO (09:25)
[2024-11-11] MEDS: metoprolol tartrate 25 mg Tablet PO (09:25)
[2024-11-11] MEDS: amlodipine 5 mg Tablet 2.5 MG PO (09:25)
--- NOTE | 2024-11-11 10:55 | PC.NURSE ---
Called Report to Adela Irvin RN at [facility].
[2024-11-11 11:00] LABS: Glucose Point of Care 115 mg/dL (70-110)
== END 2024-11-11 11:41 | DRG 464 ==
LOC: ER 22:04 → NP 11-01 01:25 → CSU 11-01 09:11 → MEDSURG 11-03 20:17 → ICU 11-04 04:38 → MEDSURG 11-07 22:59
PROVIDERS: Hospitalist; Internal Medicine; Internal Medicine Nephrology; Nurse Practitioner Family; Student in an Organized Health Care Education/Training Program; Admitting Provider Psychiatry & Neurology Psychiatry; Emergency Provider Family Medicine; PCP Family Medicine; Visit Provider Psychiatry & Neurology Psychiatry
PROC: (CPT 27880; 2024-11-03 16:20)
PROC: 0JBN0ZZ Excision of Right Lower Leg Subcutaneous Tissue and Fascia, Open Approach (ICD-10-PCS; principal; 2024-11-05 14:20)
PROC: 0JBN0ZZ Excision of Right Lower Leg Subcutaneous Tissue and Fascia, Open Approach (ICD-10-PCS; CPT 27880; 2024-11-05 14:20)
DX: T87.44 Infection of amputation stump, left lower extremity (principal); I16.9 Hypertensive crisis, unspecified; M86.9 Osteomyelitis, unspecified; R45.851 Suicidal ideations; I24.89 Other forms of acute ischemic heart disease; N17.9 Acute kidney failure, unspecified; E10.69 Type 1 diabetes mellitus with other specified complication; B95.4 Other streptococcus as the cause of diseases classified elsewhere; M71.062 Abscess of bursa, left knee; M71.061 Abscess of bursa, right knee; T87.81 Dehiscence of amputation stump; I12.9 Hypertensive chronic kidney disease with stage 1 through stage 4 chronic kidney disease, or unspecified chronic kidney disease; E10.22 Type 1 diabetes mellitus with diabetic chronic kidney disease; E10.65 Type 1 diabetes mellitus with hyperglycemia; N18.9 Chronic kidney disease, unspecified; I25.10 Atherosclerotic heart disease of native coronary artery without angina pectoris; Z95.5 Presence of coronary angioplasty implant and graft; E10.43 Type 1 diabetes mellitus with diabetic autonomic (poly)neuropathy; K31.84 Gastroparesis; E10.39 Type 1 diabetes mellitus with other diabetic ophthalmic complication; Z89.512 Acquired absence of left leg below knee; Z89.511 Acquired absence of right leg below knee; F43.10 Post-traumatic stress disorder, unspecified; H54.7 Unspecified visual loss; F32.A Depression, unspecified; I25.2 Old myocardial infarction; E78.5 Hyperlipidemia, unspecified; Z91.199 Patient's noncompliance with other medical treatment and regimen due to unspecified reason; F41.0 Panic disorder [episodic paroxysmal anxiety]; F34.1 Dysthymic disorder; F10.21 Alcohol dependence, in remission; F29 Unspecified psychosis not due to a substance or known physiological condition; Z87.440 Personal history of urinary (tract) infections; F41.1 Generalized anxiety disorder; K21.9 Gastro-esophageal reflux disease without esophagitis; G47.00 Insomnia, unspecified; D63.1 Anemia in chronic kidney disease; G89.29 Other chronic pain
CPT/HCPCS: 36415; 36416; 36430; 36573; 51702; 71045; 73700; 73721; 76770; 80048; 80053; 80069; 80202; 80306; 80307; 81001; 81025; 82310; 82436; 82550; 82570; 82728; 82962; 83540; 83550; 83735; 83970; 84100; 84133; 84145; 84300; 84484; 84550; 85025; 85610; 86036; 86038; 86140; 86160; 86803; 86850; 86900; 86920; 87040; 87070; 87075; 87186; 87205; 88304; 88307; 88311; 93005; 93306; 96372; 96374; 96376; 99285; J0330; J0360; J0690; J0780; J1100; J1171; J1200; J1630; J1815; J2020; J2060; J2250; J2405; J2704; J3010; J3370; J3475; J3490; J7030; J7050; J7120; J9999; P9016; P9045; Q0162

== ENCOUNTER 2025-01-06 12:42 | Emergency (ER) | payer MEDICAID, SELFPAY ==
[2025-01-06 13:03] VITALS: BP 153/92; PULSE 107; RESP 20; TEMP 36.8; O2SAT 100
--- NOTE | 2025-01-06 13:25 | W.ED.PSYCHS ---
HPI - Psych General: Chief Complaint: Psychiatric Symptoms Stated Complaint: fell pain all down spine Time Seen by Provider: 01/06/25 13:12 History of Present Illness: 44-year-old woman with history of chronic pain syndrome, bilateral amputations 1 AKA of 1 BKA. Multiple back surgeries. She says she had osteomyelitis at one point. She presents today with complaint of suicidal ideation. She says she wants to wheel her wheelchair out into traffic. She is moving frequently and seems agitated. She says she ran out of her pain meds. She blames her physician for this. She says they did not call anyone when they were supposed to. Says this is contributing to her suicidal thoughts. Says she hurts everywhere. No new pain. However she does states she fell and hit her head yesterday. Related Data Home Medications ?Medication ?Instructions ?Recorded ?Confirmed quetiapine 100 mg tablet 100 mg PO BEDTIME 09/13/24 01/06/25 hydralazine 100 mg tablet 100 mg PO Q8H 01/06/25 01/06/25 isosorbide dinitrate 20 mg tablet 20 mg PO BID 01/06/25 01/06/25 naloxone 4 mg/actuation nasal See Rx Instructions .Route .COMPLEX 01/06/25 01/06/25 spray (Narcan) oxycodone-acetaminophen 7.5 mg-325 1 tab PO Q6H PRN Moderate Pain 01/06/25 01/06/25 mg tablet (Scale Score 5-6) paroxetine HCl 20 mg tablet 20 mg PO DAILY 01/06/25 01/06/25 propranolol 20 mg tablet 20 mg PO Q8H 01/06/25 01/06/25 Allergies Allergy/AdvReac Type Severity Reaction Status Date / Time morphine Allergy ALGY-Difficulty Verified 09/12/24 20:19 Breathing sulfamethoxazole (From Allergy ADR-Vomitin Verified 09/12/24 20:19 Bactrim) g trimethoprim (From Bactrim) Allergy ADR-Vomitin Verified 09/12/24 20:19 g Review of Systems Narrative: Constitutional symptoms: Negative except as documented in HPI. Skin symptoms: Negative except as documented in HPI. Eye symptoms: Negative except as documented in HPI. ENMT symptoms: Negative except as documented in HPI. Respiratory symptoms: Negative except as documented in HPI. Cardiovascular symptoms: Negative except as documented in HPI. Gastrointestinal symptoms: Negative except as documented in HPI. Genitourinary symptoms: Negative except as documented in HPI. Musculoskeletal symptoms: Negative except as documented in HPI. Neurologic symptoms: Negative except as documented in HPI. Psychiatric symptoms: Negative except as documented in HPI. Endocrine symptoms: Negative except as documented in HPI. PFSH ED PFSH: Medical History Acute kidney injury superimposed on CKD Type 1 diabetes mellitus with other skin ulcer Suicide attempt Urinary retention Septic prepatellar bursitis of left knee Chronic pain Hyperglycemia Anemia of chronic disease Insomnia GERD (gastroesophageal reflux disease) ALEJANDRO (generalized anxiety disorder) C. 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 CKD (chronic kidney disease) stage 2, GFR 60-89 ml/min baseline Cr is around 1.0 Diabetic foot ulcer s/p surgical intervention and eventual amputation Hyperlipidemia Coronary artery disease hx of stenting Diabetic gastroparesis Diabetes mellitus type 1 diagnosed age 15, history of peripheral neuropathy, gastroparesis and nephropathy Surgical History Hx of angioplasty H/O esophagogastroduodenoscopy (12/31/20) Bile reflux gastritis, grade B esophagitis Hx of cholecystectomy History of amputation of right forefoot Below-knee amputation of left lower extremity S/P percutaneous endoscopic gastrostomy (PEG) tube placement H/O exploratory laparotomy x 3 Previous section x 3 S/P coronary artery stent placement x 1 Family History Unknown Diabetes extensive, type II Other Congestive heart failure (CHF) Social History Smoking and tobacco/nicotine status: former use of tobacco/nicotine Quit status (tobacco/nicotine): has quit using Former quit date comment: 15 yrs ago Alcohol intake: former Former alcohol use details: 15 yrs ago Substance/Drug Use: current Substance/Drug use frequency: daily Household members: spouse Marital status: Current occupation: disabled Sexually active: Yes (1, ) Female Reproductive History: Spontaneous abortions: No Physical Exam Narrative: EXAM NARRATIVE: General: Alert, no acute distress. Skin: Warm, dry. Head: Normocephalic, atraumatic. Neck: Supple, trachea midline. Eye: Extraocular movements are intact. Ears, nose, mouth and throat: mucosa moist. Cardiovascular: Regular, Normal peripheral perfusion. Respiratory: Lungs are clear to auscultation, respirations are non-labored, breath sounds are equal, Symmetrical chest wall expansion. Gastrointestinal: Soft, Nontender, Non distended Musculoskeletal: Bilateral lower extremity amputations. Scarring down her neck and back that appear clean dry and intact. No signs of infection. Neurological: Alert and oriented, No focal neurological deficit observed. Psychiatric: Patient is somewhat agitated and moving around frequently. She endorses suicidal thoughts. Course Vital Signs: Vital signs: Vital Signs Temperature 98.2 F 01/06/25 13:03 Pulse Rate 107 H 01/06/25 13:03 Respiratory Rate 20 H 01/06/25 13:03 Blood Pressure 153/92 01/06/25 13:03 Pulse Oximetry 100 01/06/25 13:03 Oxygen Delivery Me thod Room Air 01/06/25 13:03 MDM - Psych Medical Decision Making Differential diagnosis: Patient with reported depression and suicidal ideation. concerns for infection, alcohol intoxication, cardiac issues or other medical problems prior to psychiatric admission. Workup: labwork, ekg ordered to evaluate the pathologies and to clear the patient medically prior to psychiatric admission CT head: No acute intracranial process. no intracranial hemorrhage, no evidence of infarct. no evidence of acute fracture.This was reviewed and interpreted by myself the ER physician. CT of the cervical spine: No fracture. Good alignment. No step-offs. This was reviewed and interpreted by myself the emergency room physician. I also reviewed the radiologist report. CT of the thoracic spine: No fracture. Good alignment. No step-offs. This was reviewed and interpreted by myself the emergency room physician. EKG: Time 1612. Rate 95. Normal sinus rhythm, nonspecific ST changes, no ectopy, normal DC & QRS intervals, This was reviewed and interpreted by myself the ER physician at 1620 Lab Review: Laboratory results were reviewed and interpreted by myself the emergency room physician. - Medically cleared. - EKG shows no ischemic changes. - Blood alcohol level is negative, -Tylenol and salicylate levels are negative. - Drug screen is negative - No signs of infection, urinalysis clear and white count is not elevated - Stable chronic anemia ?Stable chronic kidney disease with BUN/creatinine of 26 and 2.1 which is at her baseline. -Flu COVID and RSV are negative Assessment and plan: Suicidal ideation Schizophrenia Chronic pain syndrome Agitation Medical noncompliance Chronic kidney disease Bilateral lower extremity amputations ?P.o. oxycodone here in the emergency room. She has now had 2 doses of Ativan and Geodon and a prolonged stay here at the emergency room - Transfer to neuropsychiatric unit for continued evaluation and treatment. No beds currently here. - All lab work was reviewed and interpreted personally by myself, the ER physician - Evaluation and treatment of this problem were appropriate in the emergency setting Lab Data 01/06/25 16:07 01/06/25 16:07 Radiology Impressions Thoracic Spine CT 01/06/25 13:26 IMPRESSION: 1. No acute bony abnormality. If symptoms persist, consider further evaluation with MRI, if there are no contraindications to obtaining a MRI scan. 2. Stable nonspecific right upper lobe ground-glass nodule. Recommend clinical correlation and follow-up imaging if clinically warranted Cervical Spine CT 01/06/25 13:27 IMPRESSION: 1. Limited evaluation secondary to motion and hardware artifact. Postsurgical and multilevel degenerative changes of the cervical spine. No obvious acute bony abnormality. If symptoms persist, consider further evaluation with MRI, if there are no contraindications to obtaining a MRI scan. 2. Asymmetric appearance of the piriform sinuses with relative effacement of the left side. Underlying mucosal lesion cannot be excluded. Recommend correlation with direct visualization. Head CT 01/06/25 13:27 IMPRESSION: 1. No evidence of intracranial hemorrhage or mass effect. 2. No acute intracranial findings. Laboratory Results WBC 7.99 10^3/uL (3.29-11.43) 01/06/25 16:07 RBC 2.95 10^6/uL (3.85-5.65) L 01/06/25 16:07 Hgb 8.70 g/dL (11.27-16.99) L 01/06/25 16:07 Hct 29.2 % (36-47) L 01/06/25 16:07 MCV 99.0 fl (85-98) H 01/06/25 16:07 MCH 29.5 pg (27-33) 01/06/25 16:07 MCHC 29.8 g/dL (30-55) L 01/06/25 16:07 RDW 14.8 % (12.1-15.1) 01/06/25 16:07 Plt Count 359 10^3/cmm (157-399) 01/06/25 16:07 MPV 8.8 fL (7.4-10.4) 01/06/25 16:07 Neut % (Auto) 80.2 % 01/06/25 16:07 Lymph % (Auto) 10.6 % 01/06/25 16:07 [place] % (Auto) 6.6 % 01/06/25 16:07 Eos % (Auto) 1.6 % 01/06/25 16:07 Baso % (Auto) 0.5 % 01/06/25 16:07 Neut # (Auto) 6.40 10^3/uL (1.8-7.7) 01/06/25 16:07 Lymph # (Auto) 0.9 10^3/uL (0.8-4.8) 01/06/25 16:07 [place] # (Auto) 0.5 10^3/uL (0.2-0.9) 01/06/25 16:07 Eos # (Auto) 0.1 10^3/uL (0.0-0.8) 01/06/25 16:07 Baso # (Auto) 0.0 10^3/uL (0.0-0.1) 01/06/25 16:07 Nucleated RBC % (auto) 0 % 01/06/25 16:07 Nucleated RBCs # 0.0 /100WBC 01/06/25 16:07 Sodium 138 mmol/L (136-145) 01/06/25 16:07 Potassium 3.6 mmol/L (3.5-5.1) 01/06/25 16:07 Chloride 104 mmol/L (98-107) 01/06/25 16:07 Carbon Dioxide 17 mmol/L (22-29) L 01/06/25 16:07 Anion Gap 20.6 (5-19) H 01/06/25 16:07 BUN 26 mg/dL (6-20) H 01/06/25 16:07 Creatinine 2.1 mg/dL (0.5-0.9) H 01/06/25 16:07 GFR Calculation 25.4 mL/min (90-130) L 01/06/25 16:07 Glucose 130 mg/dL (65-115) H 01/06/25 16:07 Calculated Osmolality 293 mOsm/kg (285-295) 01/06/25 16:07 Calcium 8.4 mg/dL (8.5-10.5) L 01/06/25 16:07 Total Bilirubin 0.2 mg/dL (0.15-1.2) 01/06/25 16:07 AST 10 U/L (0-32) 01/06/25 16:07 ALT < 5 U/L (0-33) 01/06/25 16:07 Alkaline Phosphatase 200 U/L (35-105) H 01/06/25 16:07 Total Protein 7.0 g/dL (6.6-8.7) 01/06/25 16:07 Albumin 3.2 g/dL (3.5-5.2) L 01/06/25 16:07 Globulin 3.8 g/dL (1.3-4.6) 01/06/25 16:07 TSH 0.35 uIU/mL (0.27-4.20) 01/06/25 16:07 Urine Color Yellow (Yellow) 01/06/25 19:07 Urine Appearance Clear (CLEAR) 01/06/25 19:07 Urine pH 6.0 (5-7) 01/06/25 19:07 Ur Specific [place] 1.012 (1.005-1.030) 01/06/25 19:07 Urine Protein 4+ (Negative) A 01/06/25 19:07 Urine Glucose (UA) Trace (Normal) H 01/06/25 19:07 Urine Ketones Negative (Negative) 01/06/25 19:07 Urine Blood Trace (Negative) A 01/06/25 19:07 Urine Nitrate Negative (Negative) 01/06/25 19:07 Urine Bilirubin Negative (Negative) 01/06/25 19:07 Urine Urobilinogen 0.2 mg/dL (Negative) 01/06/25 19:07 Ur Leukocyte Esterase Negative (Negative) 01/06/25 19:07 Urine RBC 0-2 /hpf (0-2) 01/06/25 19:07 Urine WBC 6-10 /hpf (0-5) 01/06/25 19:07 Ur Squamous Epith Cells 0-5 /hpf (0-5) 01/06/25 19:07 Amorphous Sediment Not Reportable 01/06/25 19:07 Urine Bacteria Trace /hpf (NONE) 01/06/25 19:07 Hyaline Casts 6.17 /lpf 01/06/25 19:07 Salicylates < 0.3 mg/dL (3-10) L 01/06/25 16:07 Urine Opiates Screen Negative ng/mL (Negative) 01/06/25 19:07 Acetaminophen < 5.0 ug/mL (10-30) L 01/06/25 16:07 Ur Barbiturates Screen Negative ng/mL (Negative) 01/06/25 19:07 Ur Phencyclidine Scrn Negative ng/mL (Negative) 01/06/25 19:07 Ur Amphetamines Screen Negative ng/mL (Negative) 01/06/25 19:07 U Benzodiazepines Scrn Negative ng/mL (Negative) 01/06/25 19:07 Urine Cocaine Screen Negative ng/mL (Negative) 01/06/25 19:07 U Marijuana (THC) Screen Positive ng/mL (Negative) H 01/06/25 19:07 Ethyl Alcohol < 10 mg/dL (0-10) 01/06/25 16:07 Influenza A (PCR) Negative (Negative) 01/06/25 19:26 Influenza Type B (PCR) Negative (Negative) 01/06/25 19:26 RSV (PCR) Negative (Negative) 01/06/25 19:26 SARS-CoV-2 (PCR) Negative (Negative) 01/06/25 19:26 All radiology interpretation(s) finalized by discharge Discharge Plan Discharge Patient Disposition: Xfer Psychiatric Hosp Clinical Impression: Chronic schizophrenia, Acute psychosis, Suicidal ideation, Noncompliance, Chronic anemia, Chronic pain syndrome Chronic kidney disease Qualifiers: Chronic kidney disease stage: unspecified stage Qualified Code(s): N18.9 - Chronic kidney disease, unspecified Condition: Stable Referrals: Monika Simpson MD [Primary Care Provider, [facility]] Print Language: Chinese Coding Level of Care Code ED Filling Layer Up for Kim Mitchell
--- NOTE | 2025-01-06 13:26 | CTR_ITS ---
PROCEDURE INFORMATION: Exam: CT Thoracic Spine Without Contrast Exam date and time: 01/06/2025 3:31 PM Age: 44 years old Clinical indication: Pain in thoracic spine; Prior surgery; Surgery date: <1 month; Surgery type: Neck; Additional info: Back pain TECHNIQUE: Imaging protocol: Computed tomography of the thoracic spine without contrast. Radiation optimization: All CT scans at this facility use at least one of these dose optimization techniques: automated exposure control; mA and/or kV adjustment per patient size (includes targeted exams where dose is matched to clinical indication); or iterative reconstruction. COMPARISON: 1. MR thoracic spin wo con* [id number] 05/28/2024 5:[address] thoracic spine dated 05/25/2024 RADIATION DOSE METRICS: Total DLP (mGy-cm): 609.8 FINDINGS: Bones/joints: Please see CT cervical spine from same day regarding cervical spinal hardware which extends into the upper thoracic region. No acute fracture. Chronic compression deformity of the T12 vertebral body along the superior endplate with up to 20% loss in height Normal alignment. No significant spinal canal stenosis. Soft tissues: Status post cholecystectomy. Stable 0.5 cm right upper lobe ground-glass nodule best seen on series [address]/CT thoracic spin wo con* [id number] IMPRESSION: 1. No acute bony abnormality. If symptoms persist, consider further evaluation with MRI, if there are no contraindications to obtaining a MRI scan. 2. Stable nonspecific right upper lobe ground-glass nodule. Recommend clinical correlation and follow-up imaging if clinically warranted
--- NOTE | 2025-01-06 13:27 | CT_ITS ---
WS: [id number] CT HEAD TECHNIQUE: Noncontrast CT of the head obtained from the skullbase to the vertex. CLINICAL INFORMATION: fall, head injury COMPARISON: 05/28/2024 DLP: 2178.[address] scans at [facility] use at least one of these dose optimization techniques: automated exposure control; mA and/or kV adjustment per patient size (includes targeted exams where dose is matched to clinical indication); or iterative reconstruction. FINDINGS: Some images degraded by motion artifact No evidence of intracranial hemorrhage or mass effect. Ventricular system and basal cisterns are patent. No extra-axial fluid collections. No evidence of mass or mass effect. Normal nails-white differentiation. Paranasal sinuses and mastoid air cells are well aerated. .Normal visualized soft tissues. CT/CT head wo con* [id number] IMPRESSION: 1. No evidence of intracranial hemorrhage or mass effect. 2. No acute intracranial findings.
--- NOTE | 2025-01-06 13:27 | CTR_ITS ---
PROCEDURE INFORMATION: Exam: CT Cervical Spine Without Contrast Exam date and time: 01/06/2025 3:31 PM Age: 44 years old Clinical indication: Injury or trauma; Fall; Blunt trauma; Injury date: 12/2024; Injury details: PT fell yesterday and reports having neck SX 3 wks ago, prior surgery; Surgery date: <1 month; Surgery type: Neck 3 weeks ago, ext, gb, stent, neck; Patient reports she is having pain from neck to tailbone. ; Additional info: Fall, neck pain TECHNIQUE: Imaging protocol: Computed tomography of the cervical spine without contrast. Radiation optimization: All CT scans at this facility use at least one of these dose optimization techniques: automated exposure control; mA and/or kV adjustment per patient size (includes targeted exams where dose is matched to clinical indication); or iterative reconstruction. COMPARISON: CT cervical spin wo con* [id number] 12/17/2023 12:22 AM RADIATION DOSE METRICS: Total DLP (mGy-cm): 1497.34 FINDINGS: Limitations: Suboptimal evaluation secondary to patient motion and hardware artifact. Bones/joints: In comparison to the prior CT scan, there has been interval surgery with anterior spinal hardware fixation spanning C4 through C7. C5 and C6 corpectomies with placement of an interbody cage. Laminectomies have been performed at C4, C5 and C6. Posterior spinal hardware fixation is seen spanning C4 through T2. Hardware creates artifact limiting evaluation of the immediately adjacent bone and soft tissues. Recommend correlation with surgical history. C2-C3: Broad-based disc osteophyte complex with mild central canal stenosis. No significant neuroforaminal narrowing. C3-C4: Broad-based disc osteophyte complex with mild central canal stenosis. Moderate bilateral neuroforaminal narrowing secondary to uncovertebral and facet hypertrophy. C4-C5: Spinal canal has been decompressed by laminectomy. Moderate bilateral neuroforaminal narrowing secondary to uncovertebral and facet hypertrophy. C5-C6: Spinal canal has been decompressed by laminectomy. No significant neuroforaminal narrowing. C6-C7: Spinal canal has been decompressed by laminectomy. No significant neuroforaminal narrowing. C7-T1: No significant disc bulge or herniation. No severe spinal canal stenosis. No significant neuroforaminal narrowing. Lungs: Lung apices are normal. Soft tissues: Bilateral carotid bulb calcifications. Asymmetric appearance of the piriform sinuses with relative effacement of the left side. Underlying mucosal lesion cannot be excluded. Recommend correlation with direct visualization. CT/CT cervical spin wo con* [id number] IMPRESSION: 1. Limited evaluation secondary to motion and hardware artifact. Postsurgical and multilevel degenerative changes of the cervical spine. No obvious acute bony abnormality. If symptoms persist, consider further evaluation with MRI, if there are no contraindications to obtaining a MRI scan. 2. Asymmetric appearance of the piriform sinuses with relative effacement of the left side. Underlying mucosal lesion cannot be excluded. Recommend correlation with direct visualization.
[2025-01-06] MEDS: oxyCODONE-APAP 5-325 mg Tablet 1 TAB PO (14:33)
--- NOTE | 2025-01-06 14:51 | PC.PHAR ---
Pt states she does not know what she takes and does not know when she last took medications. Called Sarah Perkins for verification of her current med list.
[2025-01-06] MEDS: LORazepam 1 MG/0.5 ML injection 2 MG IM (14:57)
[2025-01-06] MEDS: ziprasidone 20 mg/mL SDV IM ×2 (14:57→19:50)
[2025-01-06] MEDS: water for injection-sterile 10 ML 2 ML (14:58)
--- NOTE | 2025-01-06 16:12 | ECG_ITS ---
[facility] Date: 2025-01-06 Pat Name: Cherrie Solomon Department: Room: Gender: Female [employer] Sorter: : 1980 Requested By: Kami Clancy Order Number: [id number] Jeff MD: Joseluis Tracy M.D. Measurements Intervals [place] Rate: 95 P: 18 NV: 129 QRS: 20 QRSD: 94 T: 70 QT: 396 QTc: 498 Interpretive Statements SINUS RHYTHM NONSPECIFIC T-WAVE ABNORMALITY Compared to ECG 11/03/2024 17:41:52 No significant changes Electronically Signed On 01-07-2025 18:07:55 CDT by Joseluis Tracy M.D. [email or web address]
[2025-01-06 16:41] LABS: Basophils % 0.5 %; Eosinophils # 0.1 10^3/uL (0.0-0.8); Eosinophils % 1.6 %; Hematocrit 29.2 % (36-47); Lymphocytes # 0.9 10^3/uL (0.8-4.8); Lymphocytes % 10.6 %; Mean Corpuscular HGB Conc 29.8 g/dL (30-55); Mean Corpuscular Hemoglobin 29.5 pg (27-33); Mean Platelet Volume 8.8 fL (7.4-10.4); Monocytes # 0.5 10^3/uL (0.2-0.9); Monocytes % 6.6 %; Neutrophils % 80.2 %; Nucleated Red Blood Cells % 0 %; Platelet Count 359 10^3/cmm (157-399); Red Blood Count 2.95 10^6/uL (3.85-5.65); Red Cell Distribution Width 14.8 % (12.1-15.1); White Blood Count 7.99 10^3/uL (3.29-11.43)
[2025-01-06 17:09] LABS: Alanine Aminotransferase < 5 U/L (0-33); Albumin Level 3.2 g/dL (3.5-5.2); Alkaline Phosphatase 200 U/L (35-105); Anion Gap 20.6 (5-19); Aspartate Amino Transferase 10 U/L (0-32); Blood Urea Nitrogen 26 mg/dL (6-20); Calcium 8.4 mg/dL (8.5-10.5); Carbon Dioxide 17 mmol/L (22-29); Chloride 104 mmol/L (98-107); Creatinine Clr Calc Pharmacy 33.5575; Globulin 3.8 g/dL (1.3-4.6); Glomerular Filtration Rate 25.4 mL/min (90-130); Glucose 130 mg/dL (65-115); Osmolality Calculated 293 mOsm/kg (285-295); Potassium 3.6 mmol/L (3.5-5.1); Sodium 138 mmol/L (136-145); Thyroid Stimulating Hormone 0.35 uIU/mL (0.27-4.20); Total Bilirubin 0.2 mg/dL (0.15-1.2)
[2025-01-06 17:10] LABS: Acetaminophen < 5.0 ug/mL (10-30); Alcohol Level < 10 mg/dL (0-10); Salicylate < 0.3 mg/dL (3-10)
[2025-01-06] MEDS: ondansetron hcl ODT 4 mg Tab PO (18:35)
--- NOTE | 2025-01-06 19:14 | PC.NURSE ---
pt changed into scrubs by this rn. belongings placed into locker 9 with pt identifiers on bag.
[2025-01-06 19:16] LABS: Bilirubin Urine Negative (Negative); Blood Urine Trace (Negative); Glucose Urine UA Trace (Normal); Ketones Urine Negative (Negative); Leukocyte Esterase Urine Negative (Negative); Nitrate Urine Negative (Negative); Protein Urine 4+ (Negative); Specific Gravity, Urine 1.012 (1.005-1.030); Urine Appearance Clear (CLEAR); Urine Color Yellow (Yellow); Urobilinogen Urine 0.2 mg/dL (Negative)
[2025-01-06 19:19] LABS: Add Urine Microscopic? YES; Bacteria Urine Trace /hpf; Hyaline Casts Urine 6.17 /lpf; RBC Urine 0-2 /hpf (0-2); Squamous Epithelial Cell Urine 0-5 /hpf (0-5)
[2025-01-06 19:23] LABS: Amphetamines Screen Urine Negative (Negative); Barbiturates Screen Urine Negative (Negative); Benzodiazepines Screen Urine Negative (Negative); Cocaine Screen Urine Negative (Negative); Opiate Screen Urine Negative (Negative); PCP Screen Urine Negative (Negative); THC Screen Urine Positive (Negative)
[2025-01-06 19:30] LABS: UA Slide Review UA Slide Review Perf
--- NOTE | 2025-01-06 19:31 | PC.NURSE ---
96 hr rights reviewed with pt @1400 with assistance of [facility] staff mine warfare officer Ovi Toledo. All education reviewed at this time. No verbalized questions regarding hold. Pt copy was left with pt. Pt provided a sprite. notified at request of pt of hold so that he was not waiting for her in the ER waiting room. Pt currently complaining of pain. notified of pt refusing to sit in the recliner in hallway, and found on the floor crawling around. Pt stated she wanted to kill herself d/t pain levels. Notified. Pt educated that crawling in floor was not going to help the the pain levels
[2025-01-06] MEDS: LORazepam 2 mg/mL INJ 1 mL IM (19:50)
[2025-01-06] MEDS: oxyCODONE-APAP 10-325 mg Tablet 1 TAB PO (20:12)
[2025-01-06 20:20] LABS: Influenza A NEGATIVE (Negative); Influenza B NEGATIVE (Negative); Respiratory Syncytial Virus Ce NEGATIVE (Negative); SARS-CoV-2 PCR NEGATIVE (Negative)
--- NOTE | 2025-01-06 20:29 | PC.NURSE ---
attempted to discontinue restraints at 2014. pt laid in bed and then began to try and elope and resist staff member redirection. placed back into restraints at 2019. physician aware
--- NOTE | 2025-01-06 20:30 | PC.NURSE ---
attempted to place monitoring equipment on pt for vital signs. pt is resisting and attempting to strike rn. unable to document vitals at this time. pt is yelling let me out of this place.
[2025-01-06 21:11] VITALS: BP 198/121; PULSE 110; RESP 18; O2SAT 96
[2025-01-06] MEDS: diphenhydrAMINE 50 mg/mL SDV 1mL IVP (21:20)
[2025-01-06] MEDS: prochlorperazine 10 mg/2 mL Inj IVP (21:21)
--- NOTE | 2025-01-06 21:24 | PC.NURSE ---
L arm released from restraint at 2123.
--- NOTE | 2025-01-06 21:51 | PC.NURSE ---
removed R arm from restraints at 2150. pt is calm and cooperative at this time.
--- NOTE | 2025-01-06 22:56 | PC.NURSE ---
assisted pt to bedside commode. pt verbalizes no further requests. pt declined depends, pants. pt wearing green scrub top. pt resting in bed quietly at this time.
[2025-01-07] MEDS: HYDROmorphone 0.5 MG/0.5 ML INJ 1 MG IM ×2 (02:27→23:04)
[2025-01-07] MEDS: OLANZapine 10 mg VIAL IM ×2 (02:27→23:04)
[2025-01-07] MEDS: water for injection-sterile 10 ML 2.1 ML (02:28)
--- NOTE | 2025-01-07 02:28 | PC.NURSE ---
room cleaned and pt provided new change of scrubs. mattress on the floor at pt request. per PSA, pt is inducing vomiting by sticking finger in back of throat. educated pt to not do this. pt verbalized understanding.
[2025-01-07] MEDS: PARoxetine 20 mg Tablet PO (10:00)
[2025-01-07] MEDS: propranolol 20 mg Tablet PO ×3 (10:00→20:22)
[2025-01-07] MEDS: isosorbide dinitrate 20 mg Tablet PO ×2 (10:00→20:22)
[2025-01-07] MEDS: hyDRALAzine 50 mg Tablet 100 MG PO ×2 (10:00→20:21)
[2025-01-07] MEDS: oxyCODONE-APAP 5-325 mg Tablet 1 TAB PO ×2 (10:25→17:16)
[2025-01-07 11:10] VITALS: RESP 18; O2SAT 96
[2025-01-07 16:39] VITALS: BP 107/76; PULSE 90; O2SAT 97
[2025-01-07] MEDS: quetiapine 100 mg Tablet PO (20:21)
[2025-01-07 20:24] VITALS: BP 132/78; PULSE 75; RESP 18; O2SAT 97
--- NOTE | 2025-01-07 20:24 | W.PM.PSYCONS ---
Providers/Reason for Consult Primary Care Provider: Monika Simpson MD Psych Consult HPI History of Present Illness Cherrei Solomon is a 44 year old female Meds Home Medications and Allergies Home Medications ?Medication ?Instructions ?Recorded ?Confirmed ?Last Taken ?Type quetiapine 100 mg tablet 100 mg PO BEDTIME 09/13/24 01/06/25 Unknown History hydralazine 100 mg tablet 100 mg PO Q8H 01/06/25 01/06/25 Unknown History isosorbide dinitrate 20 mg tablet 20 mg PO BID 01/06/25 01/06/25 Unknown History naloxone 4 mg/actuation nasal See Rx Instructions .Route .COMPLEX 01/06/25 01/06/25 Unknown History spray (Narcan) oxycodone-acetaminophen 7.5 mg-325 1 tab PO Q6H PRN Moderate Pain 01/06/25 01/06/25 Unknown History mg tablet (Scale Score 5-6) paroxetine HCl 20 mg tablet 20 mg PO DAILY 01/06/25 01/06/25 Unknown History propranolol 20 mg tablet 20 mg PO Q8H 01/06/25 01/06/25 Unknown History oxycodone 5 mg tablet 5 mg PO Q8H PRN pain #20 tabs 01/08/25 Unknown Rx Allergies Allergy/AdvReac Type Severity Reaction Status Date / Time morphine Allergy ALGY-Difficulty Verified 09/12/24 20:19 Breathing sulfamethoxazole (From Allergy ADR-Vomitin Verified 09/12/24 20:19 Bactrim) g trimethoprim (From Bactrim) Allergy ADR-Vomitin Verified 09/12/24 20:19 g PFSH NPU PFSH: Medical History Acute kidney injury superimposed on CKD Type 1 diabetes mellitus with other skin ulcer Suicide attempt Urinary retention Septic prepatellar bursitis of left knee Chronic pain Hyperglycemia Anemia of chronic disease Insomnia GERD (gastroesophageal reflux disease) ALEJANDRO (generalized anxiety disorder) C. 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 CKD (chronic kidney disease) stage 2, GFR 60-89 ml/min baseline Cr is around 1.0 Diabetic foot ulcer s/p surgical intervention and eventual amputation Hyperlipidemia Coronary artery disease hx of stenting Diabetic gastroparesis Diabetes mellitus type 1 diagnosed age 15, history of peripheral neuropathy, gastroparesis and nephropathy Surgical History Hx of angioplasty H/O esophagogastroduodenoscopy (12/31/20) Bile reflux gastritis, grade B esophagitis Hx of cholecystectomy History of amputation of right forefoot Below-knee amputation of left lower extremity S/P percutaneous endoscopic gastrostomy (PEG) tube placement H/O exploratory laparotomy x 3 Previous section x 3 S/P coronary artery stent placement x 1 Family History Unknown Diabetes extensive, type II Other Congestive heart failure (CHF) Social History Smoking and tobacco/nicotine status: former use of tobacco/nicotine Quit status (tobacco/nicotine): has quit using Former quit date comment: 15 yrs ago Alcohol intake: former Former alcohol use details: 15 yrs ago Substance/Drug Use: current Substance/Drug use frequency: daily Household members: spouse Marital status: Current occupation: disabled Sexually active: Yes (1, ) Female Reproductive History: Spontaneous abortions: No Vitals/I&O/Wt Last Vital Signs Temp 98.1 F 01/08/25 06:02 Pulse 88 01/08/25 13:57 Resp 17 01/08/25 06:02 BP 98/62 01/08/25 13:57 Pulse Ox 100 01/08/25 13:57 O2 Del Method Room Air 01/08/25 06:02 Data NPU 01/06/25 16:07 01/06/25 16:07 A&P PDMP PDMP Reviewed: Not Reviewed Involuntary Hold Information 96 Hour Hold: 96 Hour Involuntary Admission: No Coding Level of Care Code Acute Code for Chg Fwd
[2025-01-08] MEDS: HYDROmorphone 0.5 MG/0.5 ML INJ 1 MG IM ×2 (05:58→10:22)
[2025-01-08 06:02] VITALS: BP 102/63; PULSE 83; RESP 17; TEMP 36.7; O2SAT 99
[2025-01-08 09:00] VITALS: BP 104/66; O2SAT 96
[2025-01-08] MEDS: PARoxetine 20 mg Tablet PO (09:13)
[2025-01-08] MEDS: OLANZapine 10 mg VIAL IM (10:23)
--- NOTE | 2025-01-08 11:37 | ED.C_ITS ---
HPI - Psych 2 General: Chief Complaint: Psychiatric Symptoms Stated Complaint: fell pain all down spine Time Seen by Provider: 01/06/25 13:12 History of Present Illness: Patient here again today. No luck with placement. I spoke with her. She says she was not ever really suicidal she was just displacing her pain. She says she does not feel like rolling her wheelchair into traffic any longer. She is no longer agitated. Her main concern is she is out of oxycodone. I cannot really get a good straight answer out of why she ran out and who writes her prescriptions. She tells me that someone in [place]. Related Data Home Medications ?Medication ?Instructions ?Recorded ?Confirmed quetiapine 100 mg tablet 100 mg PO BEDTIME 09/13/24 0 01/06/25 hydralazine 100 mg tablet 100 mg PO Q8H 01/06/2501/06 isosorbide dinitrate 20 mg tablet 20 mg PO BID 5 01/06/25 naloxone 4 mg/actuation nasal See Rx Instructions .Rou te .COMPLEX 01/06/25 01/06/25 spray (Narcan) oxycodone-acetaminophen 7.5 mg-325 1 tab PO Q6H PRN Mo derate Pain 01/06/25 01/06/25 mg tablet (Scale Score 5-6) paroxetine HCl 20 mg tablet 20 mg PO DAILY 01/06/25 propranolol 20 mg tablet 20 mg PO Q8H 01/06/25 Allergies Allergy/AdvReac Type Severity Reaction Status Date / Time morphine Allergy ALGY-Difficulty Verified 09/12/24 20:19 Breathing sulfamethoxazole (From Allergy ADR-Vomitin Verified 09/12/24 20:19 Bactrim) g trimethoprim (From Bactrim) Allergy ADR-Vomitin Verified 09/12/24 20:19 g Review of Systems 2 Narrative: Constitutional symptoms: Negative except as documented in HPI. Skin symptoms: Negative except as documented in HPI. Eye symptoms: Negative except as documented in HPI. ENMT symptoms: Negative except as documented in HPI. Respiratory symptoms: Negative except as documented in HPI. Cardiovascular symptoms: Negative except as documented in HPI. Gastrointestinal symptoms: Negative except as documented in HPI. Genitourinary symptoms: Negative except as documented in HPI. Musculoskeletal symptoms: Negative except as documented in HPI. Neurologic symptoms: Negative except as documented in HPI. Psychiatric symptoms: Negative except as documented in HPI. Endocrine symptoms: Negative except as documented in HPI. PFSH ED 2 PFSH: Medical History Acute kidney injury superimposed on CKD Type 1 diabetes mellitus with other skin ulcer Suicide attempt Urinary retention Septic prepatellar bursitis of left knee Chronic pain Hyperglycemia Anemia of chronic disease Insomnia GERD (gastroesophageal reflux disease) ALEJANDRO (generalized anxiety disorder) C. 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 CKD (chronic kidney disease) stage 2, GFR 60-89 ml/min baseline Cr is around 1.0 Diabetic foot ulcer s/p surgical intervention and eventual amputation Hyperlipidemia Coronary artery disease hx of stenting Diabetic gastroparesis Diabetes mellitus type 1 diagnosed age 15, history of peripheral neuropathy, gastroparesis and nephropathy Surgical History Hx of angioplasty H/O esophagogastroduodenoscopy (12/31/20) Bile reflux gastritis, grade B esophagitis Hx of cholecystectomy History of amputation of right forefoot Below-knee amputation of left lower extremity S/P percutaneous endoscopic gastrostomy (PEG) tube placement H/O exploratory laparotomy x 3 Previous section x 3 S/P coronary artery stent placement x 1 Family History Unknown Diabetes extensive, type II Other Congestive heart failure (CHF) Social History Smoking and tobacco/nicotine status: former use of tobacco/nicotine Quit status (tobacco/nicotine): has quit using Former quit date comment: 15 yrs ago Alcohol intake: former Former alcohol use details: 15 yrs ago Substance/Drug Use: current Substance/Drug use frequency: daily Household members: spouse Marital status: Current occupation: disabled Sexually active: Yes (1, ) Female Reproductive History: Spontaneous abortions: No Physical Exam 2 Narrative: EXAM NARRATIVE: General: Alert, no acute distress. Skin: warm and dry Head: Normocephalic Neck: Trachea midline Eye: Extraocular movements are intact. Ears, nose, mouth and throat: Oral mucosa moist Respiratory: Respirations are non-labored Musculoskeletal: Normal ROM Gastrointestinal: Abdomen does not appear distended Neurological: Alert and oriented, No focal neurological deficit observed. Psychiatric: Cooperative, appropriate mood & affect. Course 2 Vital Signs: Vital signs: Vital Signs Temperature 98.1 F 01/08/25 06:02 Pulse Rate 83 01/08/25 06:02 Respiratory Rate 17 01/08/25 06:02 Blood Pressure 104/66 01/08/25 09:00 Pulse Oximetry 96 01/08/25 09:00 Oxygen Delivery Me thod Room Air 01/08/25 06:02 MDM - Psych Medical Decision Making Assessment and plan: Chronic pain syndrome Patient being discussed with Dr. Martinez with psychiatry. - Discussed plan with patient. Answered any questions. Lab Data 01/06/25 16:07 01/06/25 16:07 Radiology Impressions Thoracic Spine CT 01/06/25 13:26 IMPRESSION: 1. No acute bony abnormality. If symptoms persist, consider further evaluation with MRI, if there are no contraindications to obtaining a MRI scan. 2. Stable nonspecific right upper lobe ground-glass nodule. Recommend clinical correlation and follow-up imaging if clinically warranted Cervical Spine CT 01/06/25 13:27 IMPRESSION: 1. Limited evaluation secondary to motion and hardware artifact. Postsurgical and multilevel degenerative changes of the cervical spine. No obvious acute bony abnormality. If symptoms persist, consider further evaluation with MRI, if there are no contraindications to obtaining a MRI scan. 2. Asymmetric appearance of the piriform sinuses with relative effacement of the left side. Underlying mucosal lesion cannot be excluded. Recommend correlation with direct visualization. Head CT 01/06/25 13:27 IMPRESSION: 1. No evidence of intracranial hemorrhage or mass effect. 2. No acute intracranial findings. Laboratory Results WBC 7.99 10^3/uL (3.29-11.43) 01/06/25 16:07 RBC 2.95 10^6/uL (3.85-5.65) L 01/06/25 16:07 Hgb 8.70 g/dL (11.27-16.99) L 01/06/25 16:07 Hct 29.2 % (36-47) L 01/06/25 16:07 MCV 99.0 fl (85-98) H 01/06/25 16:07 MCH 29.5 pg (27-33) 01/06/25 16:07 MCHC 29.8 g/dL (30-55) L 01/06/25 16:07 RDW 14.8 % (12.1-15.1) 01/06/25 16:07 Plt Count 359 10^3/cmm (157-399) 01/06/25 16:07 MPV 8.8 fL (7.4-10.4) 01/06/25 16:07 Neut % (Auto) 80.2 % 01/06/25 16:07 Lymph % (Auto) 10.6 % 01/06/25 16:07 [place] % (Auto) 6.6 % 01/06/25 16:07 Eos % (Auto) 1.6 % 01/06/25 16:07 Baso % (Auto) 0.5 % 01/06/25 16:07 Neut # (Auto) 6.40 10^3/uL (1.8-7.7) 01/06/25 16:07 Lymph # (Auto) 0.9 10^3/uL (0.8-4.8) 01/06/25 16:07 [place] # (Auto) 0.5 10^3/uL (0.2-0.9) 01/06/25 16:07 Eos # (Auto) 0.1 10^3/uL (0.0-0.8) 01/06/25 16:07 Baso # (Auto) 0.0 10^3/uL (0.0-0.1) 01/06/25 16:07 Nucleated RBC % (auto) 0 % 01/06/25 16:07 Nucleated RBCs # 0.0 /100WBC 01/06/25 16:07 Sodium 138 mmol/L (136-145) 01/06/25 16:07 Potassium 3.6 mmol/L (3.5-5.1) 01/06/25 16:07 Chloride 104 mmol/L (98-107) 01/06/25 16:07 Carbon Dioxide 17 mmol/L (22-29) L 01/06/25 16:07 Anion Gap 20.6 (5-19) H 01/06/25 16:07 BUN 26 mg/dL (6-20) H 01/06/25 16:07 Creatinine 2.1 mg/dL (0.5-0.9) H 01/06/25 16:07 GFR Calculation 25.4 mL/min (90-130) L 01/06/25 16:07 Glucose 130 mg/dL (65-115) H 01/06/25 16:07 Calculated Osmolality 293 mOsm/kg (285-295) 01/06/25 16:07 Calcium 8.4 mg/dL (8.5-10.5) L 01/06/25 16:07 Total Bilirubin 0.2 mg/dL (0.15-1.2) 01/06/25 16:07 AST 10 U/L (0-32) 01/06/25 16:07 ALT < 5 U/L (0-33) 01/06/25 16:07 Alkaline Phosphatase 200 U/L (35-105) H 01/06/25 16:07 Total Protein 7.0 g/dL (6.6-8.7) 01/06/25 16:07 Albumin 3.2 g/dL (3.5-5.2) L 01/06/25 16:07 Globulin 3.8 g/dL (1.3-4.6) 01/06/25 16:07 TSH 0.35 uIU/mL (0.27-4.20) 01/06/25 16:07 Urine Color Yellow (Yellow) 01/06/25 19:07 Urine Appearance Clear (CLEAR) 01/06/25 19:07 Urine pH 6.0 (5-7) 01/06/25 19:07 Ur Specific [place] 1.012 (1.005-1.030) 01/06/25 19:07 Urine Protein 4+ (Negative) A 01/06/25 19:07 Urine Glucose (UA) Trace (Normal) H 01/06/25 19:07 Urine Ketones Negative (Negative) 01/06/25 19:07 Urine Blood Trace (Negative) A 01/06/25 19:07 Urine Nitrate Negative (Negative) 01/06/25 19:07 Urine Bilirubin Negative (Negative) 01/06/25 19:07 Urine Urobilinogen 0.2 mg/dL (Negative) 01/06/25 19:07 Ur Leukocyte Esterase Negative (Negative) 01/06/25 19:07 Urine RBC 0-2 /hpf (0-2) 01/06/25 19:07 Urine WBC 6-10 /hpf (0-5) 01/06/25 19:07 Ur Squamous Epith Cells 0-5 /hpf (0-5) 01/06/25 19:07 Amorphous Sediment Not Reportable 01/06/25 19:07 Urine Bacteria Trace /hpf (NONE) 01/06/25 19:07 Hyaline Casts 6.17 /lpf 01/06/25 19:07 Salicylates < 0.3 mg/dL (3-10) L 01/06/25 16:07 Urine Opiates Screen Negative ng/mL (Negative) 01/06/25 19:07 Acetaminophen < 5.0 ug/mL (10-30) L 01/06/25 16:07 Ur Barbiturates Screen Negative ng/mL (Negative) 01/06/25 19:07 Ur Phencyclidine Scrn Negative ng/mL (Negative) 01/06/25 19:07 Ur Amphetamines Screen Negative ng/mL (Negative) 01/06/25 19:07 U Benzodiazepines Scrn Negative ng/mL (Negative) 01/06/25 19:07 Urine Cocaine Screen Negative ng/mL (Negative) 01/06/25 19:07 U Marijuana (THC) Screen Positive ng/mL (Negative) H 01/06/25 19:07 Ethyl Alcohol < 10 mg/dL (0-10) 01/06/25 16:07 Influenza A (PCR) Negative (Negative) 01/06/25 19:26 Influenza Type B (PCR) Negative (Negative) 01/06/25 19:26 RSV (PCR) Negative (Negative) 01/06/25 19:26 SARS-CoV-2 (PCR) Negative (Negative) 01/06/25 19:26 No radiology studies performed this visit Discharge Plan Discharge Patient Disposition: Xfer Psychiatric Hosp Clinical Impression: Chronic pain syndrome, Chronic schizophrenia, Noncompliance, Chronic anemia Chronic kidney disease Qualifiers: Chronic kidney disease stage: unspecified stage Qualified Code(s): N18.9 - Chronic kidney disease, unspecified Condition: Stable Referrals: Monika Simpson MD [Primary Care Provider, Family Practice] Print Language: Tunisian Coding Level of Care Code ED [employer] Teacher for Kim Mitchell
[2025-01-08 13:57] VITALS: BP 98/62; PULSE 88; O2SAT 100
--- NOTE | 2025-01-08 14:24 | W.PM.NPUPNS ---
Vitals/I&O/Wt Last Vital Signs Temp 98.1 F 01/08/25 06:02 Pulse 88 01/08/25 13:57 Resp 17 01/08/25 06:02 BP 98/62 01/08/25 13:57 Pulse Ox 100 01/08/25 13:57 O2 Del Method Room Air 01/08/25 06:02 Data NPU 01/06/25 16:07 01/06/25 16:07 A&P PDMP PDMP Reviewed: Not Reviewed Involuntary Hold Information 96 Hour Hold: 96 Hour Involuntary Admission: No Coding Level of Care Code Acute Code for Chg Fwmaddie
== END 2025-01-08 13:58 | disposition home or self-care (01) ==
PROVIDERS: Emergency Provider Emergency Medicine; PCP Family Medicine
DX: G89.4 Chronic pain syndrome (principal); F20.9 Schizophrenia, unspecified; Z91.148 Patient's other noncompliance with medication regimen for other reason; D64.89 Other specified anemias; Z11.52 Encounter for screening for COVID-19; Z87.891 Personal history of nicotine dependence; E10.22 Type 1 diabetes mellitus with diabetic chronic kidney disease; I12.9 Hypertensive chronic kidney disease with stage 1 through stage 4 chronic kidney disease, or unspecified chronic kidney disease; N18.2 Chronic kidney disease, stage 2 (mild); E78.5 Hyperlipidemia, unspecified; I25.10 Atherosclerotic heart disease of native coronary artery without angina pectoris; R45.851 Suicidal ideations
CPT/HCPCS: 36415; 70450; 72125; 72128; 80053; 80306; 80307; 81001; 84443; 85025; 87637; 93005; 96372; 96374; 96375; 99285; J0780; J1171; J1200; J2060; J3486; J3490; J9999; Q0162

== ENCOUNTER 2025-01-30 14:13 | Emergency (ER) | payer MEDICAID, SELFPAY ==
[2025-01-30 14:20] VITALS: BP 157/88; PULSE 95; RESP 16; TEMP 36.6; O2SAT 99; BMI 29.2
--- NOTE | 2025-01-30 14:48 | W.ED.NECK ---
HPI - Neck Pain/Injury General: Chief Complaint: Neck Pain/Injury Stated Complaint: back neck pain / post surgey Time Seen by Provider: 01/30/25 14:27 History of Present Illness: 44-year-old female presents to the emergency room with complaint of neck pain. She previously had a cervical fusion. She was taken off of pain medications a few weeks ago her primary care doctor did not been filling any more narcotics. She is complaining of continued pain. No recent trauma or injury. Patient has previous bilateral below the knee amputations and then a revision on the left leg because of developing osteomyelitis worn-out his [id number] amputation. None of the incisions appear to be infected. Related Data Home Medications ?Medication ?Instructions ?Recorded ?Confirmed quetiapine 100 mg tablet 100 mg PO BEDTIME 09/13/24 01/06/25 hydralazine 100 mg tablet 100 mg PO Q8H 01/06/25 01/06/25 isosorbide dinitrate 20 mg tablet 20 mg PO BID 01/06/25 01/06/25 naloxone 4 mg/actuation nasal See Rx Instructions .Route .COMPLEX 01/06/25 01/06/25 spray (Narcan) oxycodone-acetaminophen 7.5 mg-325 1 tab PO Q6H PRN Moderate Pain 01/06/25 01/06/25 mg tablet (Scale Score 5-6) paroxetine HCl 20 mg tablet 20 mg PO DAILY 01/06/25 01/06/25 propranolol 20 mg tablet 20 mg PO Q8H 01/06/25 01/06/25 Previous Rx's ?Medication ?Instructions ?Recorded oxycodone 5 mg tablet 5 mg PO Q8H PRN pain #20 tabs 01/08/25 prednisone 20 mg tablet 20 mg PO TID #15 tabs 01/30/25 pregabalin 75 mg capsule (Lyrica) 75 mg PO BID #60 caps 01/30/25 Allergies Allergy/AdvReac Type Severity Reaction Status Date / Time morphine Allergy ALGY-Difficulty Verified 09/12/24 20:19 Breathing sulfamethoxazole (From Allergy ADR-Vomitin Verified 09/12/24 20:19 Bactrim) g trimethoprim (From Bactrim) Allergy ADR-Vomitin Verified 09/12/24 20:19 g Review of Systems Const: Denies: fever(s) or chills Card: Denies: chest pain Resp: Denies: dyspnea GI: Denies: abdominal pain : Denies: dysuria, urinary frequency or urinary urgency Musc: Reports: neck pain; Denies: back pain Skin/Breast: Denies: rash PFSH ED PFSH: Medical History Acute kidney injury superimposed on CKD Type 1 diabetes mellitus with other skin ulcer Suicide attempt Urinary retention Septic prepatellar bursitis of left knee Chronic pain Hyperglycemia Anemia of chronic disease Insomnia GERD (gastroesophageal reflux disease) ALEJANDRO (generalized anxiety disorder) C. 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 CKD (chronic kidney disease) stage 2, GFR 60-89 ml/min baseline Cr is around 1.0 Diabetic foot ulcer s/p surgical intervention and eventual amputation Hyperlipidemia Coronary artery disease hx of stenting Diabetic gastroparesis Diabetes mellitus type 1 diagnosed age 15, history of peripheral neuropathy, gastroparesis and nephropathy Surgical History Hx of angioplasty H/O esophagogastroduodenoscopy (12/31/20) Bile reflux gastritis, grade B esophagitis Hx of cholecystectomy History of amputation of right forefoot Below-knee amputation of left lower extremity S/P percutaneous endoscopic gastrostomy (PEG) tube placement H/O exploratory laparotomy x 3 Previous section x 3 S/P coronary artery stent placement x 1 Family History Unknown Diabetes extensive, type II Other Congestive heart failure (CHF) Social History Smoking and tobacco/nicotine status: former use of tobacco/nicotine Quit status (tobacco/nicotine): has quit using Former quit date comment: 15 yrs ago Alcohol intake: former Former alcohol use details: 15 yrs ago Substance/Drug Use: current Substance/Drug use frequency: daily Household members: spouse Marital status: Current occupation: disabled Sexually active: Yes (1, ) Female Reproductive History: Spontaneous abortions: No Physical Exam Const: COMMON NORMALS: no acute distress GENERAL APPEARANCE: cooperative and comfortable ORIENTATION/CONSCIOUSNESS: Yes awake, Yes oriented to person, Yes oriented to place and Yes oriented to time HENMT: COMMON NORMALS: normocephalic, atraumatic and hearing grossly normal bilaterally HEAD & SCALP: normocephalic and atraumatic Resp: COMMON NORMALS: normal respiratory effort, No retractions, No use of accessory muscles and clear to auscultation bilaterally AUSCULTATION: clear to auscultation bilaterally Cardio: COMMON NORMALS: regular rate, regular rhythm and No murmurs present (Cardio) RATE: regular rate RHYTHM: regular rhythm GI: COMMON NORMALS: Soft to palpation and No hepatosplenomegaly present AUSCULTATION: Yes normoactive bowel sounds PALPATION: Yes Soft to palpation, No Tenderness to palpation present (GI), No Guarding due to palpation present (GI) and Yes No hepatosplenomegaly present Back/Pelvis: OTHER: Examination of the upper back incision well-healed no redness no erythema no induration Extremity: OTHER: Bilateral amputations [id number] amputation on the left below the knee of [place] on the right both incisions look good are healing well no signs of redness or drainage Neuro: SENSORIUM/ORIENTATION: Yes oriented to person, Yes oriented to place and Yes oriented to time Skin: COMMON NORMALS: no rashes or lesions noted GENERAL SKIN EXAM: no rashes or lesions noted Course Vital Signs: Vital signs: Vital Signs Temperature 97.9 F 01/30/25 14:20 Pulse Rate 90 01/30/25 15:25 Respiratory Rate 16 01/30/25 14:20 Blood Pressure 157/88 01/30/25 14:20 Pulse Oximetry 99 01/30/25 15:25 Oxygen Delivery Me thod Room Air 01/30/25 14:20 MDM - Neck Pain/Injury Medical Decision Making Chronic neck pain patient encouraged to follow-up with her primary care doctor surgeon or the pain clinic. She had previously been the pain clinics telling me they are not refilling her meds anymore. Advised her that she needs to follow-up with them we cannot give her narcotics at this point. All radiology interpretation(s) finalized by discharge Discharge Plan Discharge Patient Disposition: Home Clinical Impression: Chronic neck pain Condition: Stable Prescriptions: New pregabalin [Lyrica] 75 mg capsule 75 mg PO BID Qty: 60 0RF prednisone 20 mg tablet 20 mg PO TID Qty: 15 0RF Rx Instructions: 1 p.o. 3 times daily x3 days, 1 p.o. twice daily x2 days, 1 p.o. daily x2 days No Action quetiapine 100 mg tablet 100 mg PO BEDTIME paroxetine HCl 20 mg tablet 20 mg PO DAILY hydralazine 100 mg tablet 100 mg PO Q8H isosorbide dinitrate 20 mg tablet 20 mg PO BID oxycodone-acetaminophen 7.5-325 mg tablet 1 tab PO Q6H PRN (Reason: Moderate Pain (Scale Score 5-6)) propranolol 20 mg tablet 20 mg PO Q8H naloxone [Narcan] 4 mg/actuation spray,non-aerosol See Rx Instructions .ROUTE .COMPLEX Rx Instructions: EMERGENCY USE ONLY, ADMINISTER A SINGLE SPRAY IN ONE NOSTRIL UPON SIGNS OF OPIOID OVERDOSE. MAY REPEAT IN ALTERNATING NOSTRILS EVERY 2 TO 3 MINUTES UNTIL RESPONSIVE OR EMS ARRIVES. oxycodone 5 mg tablet 5 mg PO Q8H PRN (Reason: pain) Qty: 20 0RF Discharge Orders: Discharge ED (Routine); Ordered 01/30/25 Ordered By: Adama Ceballos Referrals: Monika Simpson MD [Primary Care Provider, Family Practice] Discharge Diet: Usual diet Discharge Activity: Increase activity as tolerated Patient Instructions: Opioid Safety, Pain Management Activity Restrictions/Additional Instructions: Thank you for choosing [facility] for your healthcare needs today. It is very important that you follow up as instructed or that you return to the Emergency Department should you have concerns or if your condition changes or worsens in any way. You are seen in the emergency room with complaint of neck pain. You are given medications while in the emergency room will discharge home with steroid taper start you on Lyrica 1 tablet twice a day. Follow-up with your primary care doctor or the pain clinic. Print Language: Venezuelan Coding Level of Care Code ED Supervisor Intermediates for Kim Mitchell
[2025-01-30] MEDS: ketorolac 60 mg/2 mL INJ IM (14:56)
[2025-01-30] MEDS: orphenadrine 30 mg/mL Inj 2 mL 60 MG IM (14:56)
[2025-01-30] MEDS: ondansetron 2 mg/ML SDV 2 mL 4 MG IM (14:56)
[2025-01-30 15:25] VITALS: PULSE 90; O2SAT 99
== END 2025-01-30 15:26 | disposition home or self-care (01) ==
PROVIDERS: Emergency Provider Family Medicine; PCP Family Medicine
DX: M54.2 Cervicalgia (principal); Z98.890 Other specified postprocedural states; Z87.891 Personal history of nicotine dependence; E10.22 Type 1 diabetes mellitus with diabetic chronic kidney disease; I12.9 Hypertensive chronic kidney disease with stage 1 through stage 4 chronic kidney disease, or unspecified chronic kidney disease; N18.9 Chronic kidney disease, unspecified; I25.10 Atherosclerotic heart disease of native coronary artery without angina pectoris; E78.5 Hyperlipidemia, unspecified
CPT/HCPCS: 96372; 99284; J1885; J2360; J2405

== ENCOUNTER 2025-02-05 05:06 | Emergency (ER) | payer MEDICAID, SELFPAY ==
[2025-02-05 05:12] VITALS: BP 82/51; PULSE 126; RESP 18; TEMP 36.8; O2SAT 99; BMI 29.2
--- NOTE | 2025-02-05 05:42 | CTR_ITS ---
PROCEDURE INFORMATION: Exam: CT Abdomen And Pelvis Without Contrast Exam date and time: 02/05/2025 7:30 AM Age: 44 years old Clinical indication: Abdominal pain; Localized; Right lower quadrant (rlq); Prior surgery; Surgery date: 6+ months; Surgery type: Gb neck; Additional info: Right lower quadrant abd pain TECHNIQUE: Imaging protocol: Computed tomography of the abdomen and pelvis without contrast. Total images: 1 Radiation optimization: All CT scans at this facility use at least one of these dose optimization techniques: automated exposure control; mA and/or kV adjustment per patient size (includes targeted exams where dose is matched to clinical indication); or iterative reconstruction. COMPARISON: CT abdomen pelvis w con* [id number] 05/18/2022 11:11 PM RADIATION DOSE METRICS: Total DLP (mGy-cm): 450.02 FINDINGS: Tubes, catheters and devices: Embolization coils anterior aspect of right kidney. Slightly lower density right kidney with slightly higher density capsule. Anterior cortex appear thinned which is felt to be expected from the adjacent embolization coils however the posterior cortex appears garcia in there may be developing calcifications in part of the parenchyma. Findings may represent a remote infarct. Postcontrast imaging or renal ultrasound with Doppler would be helpful to further evaluate. Liver: Normal. No mass. Gallbladder and biliary ducts: Prior cholecystectomy noted. Pancreas: Normal. No ductal dilation. Spleen: Normal. No splenomegaly. Adrenal glands: Normal. No mass. Kidneys and ureters: No renal, ureteral, nor bladder calculi detected. Stomach and bowel: Unremarkable. No obstruction. No mucosal thickening. Appendix: No evidence of appendicitis. Intraperitoneal space: Unremarkable. No free air. No significant fluid collection. Vasculature: Unremarkable. No abdominal aortic aneurysm. Lymph nodes: Unremarkable. No enlarged lymph nodes. Urinary bladder: See Kidneys and ureters finding. Reproductive: Unremarkable as visualized. Bones/joints: Unremarkable. No acute fracture. Soft tissues: Small linear density within the subcutaneous tissues of the anterior lower chest wall unchanged and most likely postprocedural. Other findings: Mild atherosclerotic disease burden is evident. CT/CT abdomen pelvis wo con [id number] IMPRESSION: 1. Embolization coils anterior aspect of right kidney. Slightly lower density right kidney with slightly higher density capsule. Anterior cortex appear thinned which is felt to be expected from the adjacent embolization coils however the posterior cortex appears garcia in there may be developing calcifications in part of the parenchyma. Findings may represent a remote infarct. Postcontrast imaging or renal ultrasound with Doppler would be helpful to further evaluate. 2. No renal, ureteral, nor bladder calculi detected.
--- NOTE | 2025-02-05 05:45 | W.ED.ABDPA2 ---
Documented by User: Jabier Regalado MD 02/05/25 05:48 HPI - Abdominal Pain General: Chief Complaint: Abdominal Pain Stated Complaint: N/V R Upper ABD Pain Time Seen by Provider: 02/05/25 05:31 History of Present Illness: Patient comes in with abdominal pain. States for the past 2 days she has had sharp, constant, right-sided abdominal pain. Associated with nausea and vomiting. Denies fever, or diarrhea. Denies any previous history of similar abdominal pain. On physical exam she has a right below-knee amputation, left above-knee amputation. She is tachycardic. She has tenderness in the right side of her abdomen to very light palpation. Will check labs, give IV fluids, CT abdomen pelvis with IV contrast, treat pain with 30 mg of IV Toradol, treat nausea with 4 mg of IV Zofran, and reassess. Associated Symptoms: Reports nausea and vomiting Related Data Home Medications ?Medication ?Instructions ?Recorded ?Confirmed quetiapine 100 mg tablet 100 mg PO BEDTIME 09/13/24 02/05/25 hydralazine 100 mg tablet 100 mg PO Q8H 01/06/25 02/05/25 isosorbide dinitrate 20 mg tablet 20 mg PO BID 01/06/25 02/05/25 naloxone 4 mg/actuation nasal See Rx Instructions .Route .COMPLEX 01/06/25 02/05/25 spray (Narcan) oxycodone-acetaminophen 7.5 mg-325 1 tab PO Q6H PRN Moderate Pain 01/06/25 02/05/25 mg tablet (Scale Score 5-6) paroxetine HCl 20 mg tablet 20 mg PO DAILY 01/06/25 02/05/25 propranolol 20 mg tablet 20 mg PO Q8H 01/06/25 02/05/25 quetiapine 50 mg tablet 50 mg PO DAILY 02/05/25 02/05/25 Previous Rx's ?Medication ?Instructions ?Recorded oxycodone 5 mg tablet 5 mg PO Q8H PRN pain #20 tabs 01/08/25 prednisone 20 mg tablet 20 mg PO TID #15 tabs 01/30/25 pregabalin 75 mg capsule (Lyrica) 75 mg PO BID #60 caps 01/30/25 Allergies Allergy/AdvReac Type Severity Reaction Status Date / Time morphine Allergy ALGY-Difficulty Verified 09/12/24 20:19 Breathing sulfamethoxazole (From Allergy ADR-Vomitin Verified 09/12/24 20:19 Bactrim) g trimethoprim (From Bactrim) Allergy ADR-Vomitin Verified 09/12/24 20:19 g Review of Systems GI: Reports: abdominal pain, nausea and vomiting PFSH ED PFSH: Medical History Acute kidney injury superimposed on CKD Type 1 diabetes mellitus with other skin ulcer Suicide attempt Urinary retention Septic prepatellar bursitis of left knee Chronic pain Hyperglycemia Anemia of chronic disease Insomnia GERD (gastroesophageal reflux disease) ALEJANDRO (generalized anxiety disorder) C. 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 CKD (chronic kidney disease) stage 2, GFR 60-89 ml/min baseline Cr is around 1.0 Diabetic foot ulcer s/p surgical intervention and eventual amputation Hyperlipidemia Coronary artery disease hx of stenting Diabetic gastroparesis Diabetes mellitus type 1 diagnosed age 15, history of peripheral neuropathy, gastroparesis and nephropathy Surgical History Hx of angioplasty H/O esophagogastroduodenoscopy (12/31/20) Bile reflux gastritis, grade B esophagitis Hx of cholecystectomy History of amputation of right forefoot Below-knee amputation of left lower extremity S/P percutaneous endoscopic gastrostomy (PEG) tube placement H/O exploratory laparotomy x 3 Previous section x 3 S/P coronary artery stent placement x 1 Family History Unknown Diabetes extensive, type II Other Congestive heart failure (CHF) Social History Smoking and tobacco/nicotine status: former use of tobacco/nicotine Quit status (tobacco/nicotine): has quit using Former quit date comment: 15 yrs ago Alcohol intake: former Former alcohol use details: 15 yrs ago Substance/Drug Use: current Substance/Drug use frequency: daily Household members: spouse Marital status: Current occupation: disabled Sexually active: Yes (1, ) Female Reproductive History: Spontaneous abortions: No Physical Exam HENMT: COMMON NORMALS: normocephalic and atraumatic HEAD & SCALP: normocephalic and atraumatic Neck/C-Spine: COMMON NORMALS: full ROM and supple Resp: COMMON NORMALS: normal respiratory effort, No retractions and No use of accessory muscles Cardio: COMMON NORMALS: regular rhythm RHYTHM: regular rhythm GI: OTHER: Right-sided abdominal tenderness to very light palpation Extremity: NARRATIVE EXTREMITY EXAM: Right below-knee amputation, left above-knee amputation Course Vital Signs: Vital signs: Vital Signs Temperature 98.2 F 02/05/25 05:12 Pulse Rate 86 02/05/25 12:05 Respiratory Rate 18 02/05/25 08:35 Blood Pressure 141/72 02/05/25 12:05 Pulse Oximetry 98 02/05/25 12:05 Oxygen Delivery Me thod Room Air 02/05/25 10:23 MDM - Abdominal Pain Medical Decision Making Awaiting test results. Will sign out to the oncoming physician. Lab Data 02/05/25 06:11 02/05/25 06:11 Labs/Radiology: Radiology Impressions Abdomen/Pelvis CT 02/05/25 05:42 IMPRESSION: 1. Embolization coils anterior aspect of right kidney. Slightly lower density right kidney with slightly higher density capsule. Anterior cortex appear thinned which is felt to be expected from the adjacent embolization coils however the posterior cortex appears garcia in there may be developing calcifications in part of the parenchyma. Findings may represent a remote infarct. Postcontrast imaging or renal ultrasound with Doppler would be helpful to further evaluate. 2. No renal, ureteral, nor bladder calculi detected. ADDENDUM: 02/05/25 0851 ADDENDUM: This report contains critical findings. The findings were verbally communicated via telephone conference at 8:48 AM CDT on 02/05/[address] CEBALLOS. The findings were acknowledged and understood. Laboratory Results WBC 10.07 10^3/uL (3.29-11.43) 02/05/25 06:11 RBC 3.49 10^6/uL (3.85-5.65) L 02/05/25 06:11 Hgb 10.60 g/dL (11.27-16.99) L 02/05/25 06:11 Hct 32.4 % (36-47) L 02/05/25 06:11 MCV 92.8 fl (85-98) 02/05/25 06:11 MCH 30.4 pg (27-33) 02/05/25 06:11 MCHC 32.7 g/dL (30-55) 02/05/25 06:11 RDW 15.3 % (12.1-15.1) H 02/05/25 06:11 Plt Count 334 10^3/cmm (157-399) 02/05/25 06:11 MPV 8.5 fL (7.4-10.4) 02/05/25 06:11 Neut % (Auto) 74.9 % 02/05/25 06:11 Lymph % (Auto) 16.5 % 02/05/25 06:11 Price % (Auto) 7.5 % 02/05/25 06:11 Eos % (Auto) 0.2 % 02/05/25 06:11 Baso % (Auto) 0.4 % 02/05/25 06:11 Neut # (Auto) 7.54 10^3/uL (1.8-7.7) 02/05/25 06:11 Lymph # (Auto) 1.7 10^3/uL (0.8-4.8) 02/05/25 06:11 Price # (Auto) 0.8 10^3/uL (0.2-0.9) 02/05/25 06:11 Eos # (Auto) 0.0 10^3/uL (0.0-0.8) 02/05/25 06:11 Baso # (Auto) 0.0 10^3/uL (0.0-0.1) 02/05/25 06:11 Nucleated RBC % (auto) 0 % 02/05/25 06:11 Nucleated RBCs # 0.0 /100WBC 02/05/25 06:11 Sodium 141 mmol/L (136-145) 02/05/25 06:11 Potassium 4.5 mmol/L (3.5-5.1) 02/05/25 06:11 Chloride 104 mmol/L (98-107) 02/05/25 06:11 Carbon Dioxide 19 mmol/L (22-29) L 02/05/25 06:11 Anion Gap 22.5 (5-19) H 02/05/25 06:11 BUN 67 mg/dL (6-20) H 02/05/25 06:11 Creatinine 4.0 mg/dL (0.5-0.9) H 02/05/25 06:11 GFR Calculation 12.1 mL/min (90-130) L 02/05/25 06:11 Glucose 146 mg/dL (65-115) H 02/05/25 06:11 Calculated Osmolality 314 mOsm/kg (285-295) H 02/05/25 06:11 Lactic Acid 1.3 mmol/L (0.5-2.2) 02/05/25 06:11 Calcium 8.9 mg/dL (8.5-10.5) 02/05/25 06:11 Total Bilirubin 0.4 mg/dL (0.15-1.2) 02/05/25 06:11 AST 13 U/L (0-32) 02/05/25 06:11 ALT 12 U/L (0-33) 02/05/25 06:11 Alkaline Phosphatase 146 U/L (35-105) H 02/05/25 06:11 Total Protein 7.2 g/dL (6.6-8.7) 02/05/25 06:11 Albumin 3.6 g/dL (3.5-5.2) 02/05/25 06:11 Globulin 3.6 g/dL (1.3-4.6) 02/05/25 06:11 Lipase 34 U/L (13-60) 02/05/25 06:11 Urine Color Yellow (Yellow) 02/05/25 09:15 Urine Appearance Clear (CLEAR) 02/05/25 09:15 Urine pH 7.5 (5-7) 02/05/25 09:15 Ur Specific [place] 1.021 (1.005-1.030) 02/05/25 09:15 Urine Protein 4+ (Negative) A 02/05/25 09:15 Urine Glucose (UA) Trace (Normal) H 02/05/25 09:15 Urine Ketones Negative (Negative) 02/05/25 09:15 Urine Blood Negative (Negative) 02/05/25 09:15 Urine Nitrate Negative (Negative) 02/05/25 09:15 Urine Bilirubin Negative (Negative) 02/05/25 09:15 Urine Urobilinogen 1.0 mg/dL (Negative) 02/05/25 09:15 Ur Leukocyte Esterase Negative (Negative) 02/05/25 09:15 Urine RBC 0-2 /hpf (0-2) 02/05/25 09:15 Urine WBC 0-5 /hpf (0-5) 02/05/25 09:15 Ur Squamous Epith Cells 0-5 /hpf (0-5) 02/05/25 09:15 Amorphous Sediment Not Reportable 02/05/25 09:15 Urine Bacteria None seen /hpf (NONE) 02/05/25 09:15 Hyaline Casts 1.21 /lpf 02/05/25 09:15 Urine Opiates Screen Negative ng/mL (Negative) 02/05/25 09:15 Ur Barbiturates Screen Negative ng/mL (Negative) 02/05/25 09:15 Ur Phencyclidine Scrn Negative ng/mL (Negative) 02/05/25 09:15 Ur Amphetamines Screen Negative ng/mL (Negative) 02/05/25 09:15 U Benzodiazepines Scrn Negative ng/mL (Negative) 02/05/25 09:15 Urine Cocaine Screen Negative ng/mL (Negative) 02/05/25 09:15 U Marijuana (THC) Screen Positive ng/mL (Negative) H 02/05/25 09:15 Discharge Plan Discharge Patient Disposition: Transfer to ED Clinical Impression: Acute renal arterial thrombosis, Acute kidney injury, Suicidal ideation Condition: Stable Prescriptions: No Action quetiapine 100 mg tablet 100 mg PO BEDTIME paroxetine HCl 20 mg tablet 20 mg PO DAILY hydralazine 100 mg tablet 100 mg PO Q8H isosorbide dinitrate 20 mg tablet 20 mg PO BID oxycodone-acetaminophen 7.5-325 mg tablet 1 tab PO Q6H PRN (Reason: Moderate Pain (Scale Score 5-6)) propranolol 20 mg tablet 20 mg PO Q8H naloxone [Narcan] 4 mg/actuation spray,non-aerosol See Rx Instructions .ROUTE .COMPLEX Rx Instructions: EMERGENCY USE ONLY, ADMINISTER A SINGLE SPRAY IN ONE NOSTRIL UPON SIGNS OF OPIOID OVERDOSE. MAY REPEAT IN ALTERNATING NOSTRILS EVERY 2 TO 3 MINUTES UNTIL RESPONSIVE OR EMS ARRIVES. oxycodone 5 mg tablet 5 mg PO Q8H PRN (Reason: pain) Qty: 20 0RF quetiapine 50 mg tablet 50 mg PO DAILY pregabalin [Lyrica] 75 mg capsule 75 mg PO BID Qty: 60 0RF prednisone 20 mg tablet 20 mg PO TID Qty: 15 0RF Rx Instructions: 1 p.o. 3 times daily x3 days, 1 p.o. twice daily x2 days, 1 p.o. daily x2 days Referrals: Monika Simpson MD [Primary Care Provider, Family Practice] Print Language: Polish Sign Out Sign Out Data: Patient Sign Out occurred on 02/05/25 at 06:08. Patient's care was discussed, and care was transferred from Jabier Regalado MD to Adama Ceballos DO. Coding Level of Care Code ED Mobile Developer for Chg Fwd Documented by User: Adama Ceballos DO 02/05/25 13:23 HPI - Abdominal Pain General: Chief Complaint: Abdominal Pain Stated Complaint: N/V R Upper ABD Pain Time Seen by Provider: 02/05/25 05:31 Related Data Home Medications ?Medication ?Instructions ?Recorded ?Confirmed quetiapine 100 mg tablet 100 mg PO BEDTIME 09/13/24 02/05/25 hydralazine 100 mg tablet 100 mg PO Q8H 01/06/25 02/05/25 isosorbide dinitrate 20 mg tablet 20 mg PO BID 01/06/25 02/05/25 naloxone 4 mg/actuation nasal See Rx Instructions .Route .COMPLEX 01/06/25 02/05/25 spray (Narcan) oxycodone-acetaminophen 7.5 mg-325 1 tab PO Q6H PRN Moderate Pain 01/06/25 02/05/25 mg tablet (Scale Score 5-6) paroxetine HCl 20 mg tablet 20 mg PO DAILY 01/06/25 02/05/25 propranolol 20 mg tablet 20 mg PO Q8H 01/06/25 02/05/25 quetiapine 50 mg tablet 50 mg PO DAILY 02/05/25 02/05/25 Previous Rx's ?Medication ?Instructions ?Recorded oxycodone 5 mg tablet 5 mg PO Q8H PRN pain #20 tabs 01/08/25 prednisone 20 mg tablet 20 mg PO TID #15 tabs 01/30/25 pregabalin 75 mg capsule (Lyrica) 75 mg PO BID #60 caps 01/30/25 Allergies Allergy/AdvReac Type Severity Reaction Status Date / Time morphine Allergy ALGY-Difficulty Verified 09/12/24 20:19 Breathing sulfamethoxazole (From Allergy ADR-Vomitin Verified 09/12/24 20:19 Bactrim) g trimethoprim (From Bactrim) Allergy ADR-Vomitin Verified 09/12/24 20:19 g PFSH ED PFSH: Medical History Acute kidney injury superimposed on CKD Type 1 diabetes mellitus with other skin ulcer Suicide attempt Urinary retention Septic prepatellar bursitis of left knee Chronic pain Hyperglycemia Anemia of chronic disease Insomnia GERD (gastroesophageal reflux disease) ALEJANDRO (generalized anxiety disorder) C. 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 CKD (chronic kidney disease) stage 2, GFR 60-89 ml/min baseline Cr is around 1.0 Diabetic foot ulcer s/p surgical intervention and eventual amputation Hyperlipidemia Coronary artery disease hx of stenting Diabetic gastroparesis Diabetes mellitus type 1 diagnosed age 15, history of peripheral neuropathy, gastroparesis and nephropathy Surgical History Hx of angioplasty H/O esophagogastroduodenoscopy (12/31/20) Bile reflux gastritis, grade B esophagitis Hx of cholecystectomy History of amputation of right forefoot Below-knee amputation of left lower extremity S/P percutaneous endoscopic gastrostomy (PEG) tube placement H/O exploratory laparotomy x 3 Previous section x 3 S/P coronary artery stent placement x 1 Family History Unknown Diabetes extensive, type II Other Congestive heart failure (CHF) Social History Smoking and tobacco/nicotine status: former use of tobacco/nicotine Quit status (tobacco/nicotine): has quit using Former quit date comment: 15 yrs ago Alcohol intake: former Former alcohol use details: 15 yrs ago Substance/Drug Use: current Substance/Drug use frequency: daily Household members: spouse Marital status: Current occupation: disabled Sexually active: Yes (1, ) Course Vital Signs: Vital signs: Vital Signs Temperature 98.2 F 02/05/25 05:12 Pulse Rate 86 02/05/25 12:05 Respiratory Rate 18 02/05/25 08:35 Blood Pressure 141/72 02/05/25 12:05 Pulse Oximetry 98 02/05/25 12:05 Oxygen Delivery Me thod Room Air 02/05/25 10:23 MDM - Abdominal Pain Medical Decision Making Awaiting test results. Will sign out to the oncoming physician. Care assumed at change of shift. Patient's behavior became difficult. She is crawling on the floor system this before we encouraged her to go back to her room staff to try to redirect her multiple times she continues to crawl on the floor she is making suicidal threats to walk or crawl into traffic to get herself killed. 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 She previously had a coil placed with appears to be expanding now her renal function has sharply increased as well. I called and discussed with urology in [place] they agreed to accept the patient. Did inform that she is a 89-year-old because of suicidal ideation as well they asked that she be taken to the emergency room to further evaluate. Medical Records I reviewed the patient's medical records. Lab Data I reviewed the patient's lab results. 02/05/25 06:11 02/05/25 06:11 Labs/Radiology: Radiology Impressions Abdomen/Pelvis CT 02/05/25 05:42 IMPRESSION: 1. Embolization coils anterior aspect of right kidney. Slightly lower density right kidney with slightly higher density capsule. Anterior cortex appear thinned which is felt to be expected from the adjacent embolization coils however the posterior cortex appears garcia in there may be developing calcifications in part of the parenchyma. Findings may represent a remote infarct. Postcontrast imaging or renal ultrasound with Doppler would be helpful to further evaluate. 2. No renal, ureteral, nor bladder calculi detected. ADDENDUM: 02/05/25 0851 ADDENDUM: This report contains critical findings. The findings were verbally communicated via telephone conference at 8:48 AM CDT on 02/05/[address] CEBALLOS. The findings were acknowledged and understood. Laboratory Results WBC 10.07 10^3/uL (3.29-11.43) 02/05/25 06:11 RBC 3.49 10^6/uL (3.85-5.65) L 02/05/25 06:11 Hgb 10.60 g/dL (11.27-16.99) L 02/05/25 06:11 Hct 32.4 % (36-47) L 02/05/25 06:11 MCV 92.8 fl (85-98) 02/05/25 06:11 MCH 30.4 pg (27-33) 02/05/25 06:11 MCHC 32.7 g/dL (30-55) 02/05/25 06:11 RDW 15.3 % (12.1-15.1) H 02/05/25 06:11 Plt Count 334 10^3/cmm (157-399) 02/05/25 06:11 MPV 8.5 fL (7.4-10.4) 02/05/25 06:11 Neut % (Auto) 74.9 % 02/05/25 06:11 Lymph % (Auto) 16.5 % 02/05/25 06:11 Price % (Auto) 7.5 % 02/05/25 06:11 Eos % (Auto) 0.2 % 02/05/25 06:11 Baso % (Auto) 0.4 % 02/05/25 06:11 Neut # (Auto) 7.54 10^3/uL (1.8-7.7) 02/05/25 06:11 Lymph # (Auto) 1.7 10^3/uL (0.8-4.8) 02/05/25 06:11 Price # (Auto) 0.8 10^3/uL (0.2-0.9) 02/05/25 06:11 Eos # (Auto) 0.0 10^3/uL (0.0-0.8) 02/05/25 06:11 Baso # (Auto) 0.0 10^3/uL (0.0-0.1) 02/05/25 06:11 Nucleated RBC % (auto) 0 % 02/05/25 06:11 Nucleated RBCs # 0.0 /100WBC 02/05/25 06:11 Sodium 141 mmol/L (136-145) 02/05/25 06:11 Potassium 4.5 mmol/L (3.5-5.1) 02/05/25 06:11 Chloride 104 mmol/L (98-107) 02/05/25 06:11 Carbon Dioxide 19 mmol/L (22-29) L 02/05/25 06:11 Anion Gap 22.5 (5-19) H 02/05/25 06:11 BUN 67 mg/dL (6-20) H 02/05/25 06:11 Creatinine 4.0 mg/dL (0.5-0.9) H 02/05/25 06:11 GFR Calculation 12.1 mL/min (90-130) L 02/05/25 06:11 Glucose 146 mg/dL (65-115) H 02/05/25 06:11 Calculated Osmolality 314 mOsm/kg (285-295) H 02/05/25 06:11 Lactic Acid 1.3 mmol/L (0.5-2.2) 02/05/25 06:11 Calcium 8.9 mg/dL (8.5-10.5) 02/05/25 06:11 Total Bilirubin 0.4 mg/dL (0.15-1.2) 02/05/25 06:11 AST 13 U/L (0-32) 02/05/25 06:11 ALT 12 U/L (0-33) 02/05/25 06:11 Alkaline Phosphatase 146 U/L (35-105) H 02/05/25 06:11 Total Protein 7.2 g/dL (6.6-8.7) 02/05/25 06:11 Albumin 3.6 g/dL (3.5-5.2) 02/05/25 06:11 Globulin 3.6 g/dL (1.3-4.6) 02/05/25 06:11 Lipase 34 U/L (13-60) 02/05/25 06:11 Urine Color Yellow (Yellow) 02/05/25 09:15 Urine Appearance Clear (CLEAR) 02/05/25 09:15 Urine pH 7.5 (5-7) 02/05/25 09:15 Ur Specific [place] 1.021 (1.005-1.030) 02/05/25 09:15 Urine Protein 4+ (Negative) A 02/05/25 09:15 Urine Glucose (UA) Trace (Normal) H 02/05/25 09:15 Urine Ketones Negative (Negative) 02/05/25 09:15 Urine Blood Negative (Negative) 02/05/25 09:15 Urine Nitrate Negative (Negative) 02/05/25 09:15 Urine Bilirubin Negative (Negative) 02/05/25 09:15 Urine Urobilinogen 1.0 mg/dL (Negative) 02/05/25 09:15 Ur Leukocyte Esterase Negative (Negative) 02/05/25 09:15 Urine RBC 0-2 /hpf (0-2) 02/05/25 09:15 Urine WBC 0-5 /hpf (0-5) 02/05/25 09:15 Ur Squamous Epith Cells 0-5 /hpf (0-5) 02/05/25 09:15 Amorphous Sediment Not Reportable 02/05/25 09:15 Urine Bacteria None seen /hpf (NONE) 02/05/25 09:15 Hyaline Casts 1.21 /lpf 02/05/25 09:15 Urine Opiates Screen Negative ng/mL (Negative) 02/05/25 09:15 Ur Barbiturates Screen Negative ng/mL (Negative) 02/05/25 09:15 Ur Phencyclidine Scrn Negative ng/mL (Negative) 02/05/25 09:15 Ur Amphetamines Screen Negative ng/mL (Negative) 02/05/25 09:15 U Benzodiazepines Scrn Negative ng/mL (Negative) 02/05/25 09:15 Urine Cocaine Screen Negative ng/mL (Negative) 02/05/25 09:15 U Marijuana (THC) Screen Positive ng/mL (Negative) H 02/05/25 09:15 All radiology interpretation(s) finalized by discharge Discharge Plan Discharge Patient Disposition: Transfer to ED Clinical Impression: Acute renal arterial thrombosis, Acute kidney injury, Suicidal ideation Condition: Stable Prescriptions: No Action quetiapine 100 mg tablet 100 mg PO BEDTIME paroxetine HCl 20 mg tablet 20 mg PO DAILY hydralazine 100 mg tablet 100 mg PO Q8H isosorbide dinitrate 20 mg tablet 20 mg PO BID oxycodone-acetaminophen 7.5-325 mg tablet 1 tab PO Q6H PRN (Reason: Moderate Pain (Scale Score 5-6)) propranolol 20 mg tablet 20 mg PO Q8H naloxone [Narcan] 4 mg/actuation spray,non-aerosol See Rx Instructions .ROUTE .COMPLEX Rx Instructions: EMERGENCY USE ONLY, ADMINISTER A SINGLE SPRAY IN ONE NOSTRIL UPON SIGNS OF OPIOID OVERDOSE. MAY REPEAT IN ALTERNATING NOSTRILS EVERY 2 TO 3 MINUTES UNTIL RESPONSIVE OR EMS ARRIVES. oxycodone 5 mg tablet 5 mg PO Q8H PRN (Reason: pain) Qty: 20 0RF quetiapine 50 mg tablet 50 mg PO DAILY pregabalin [Lyrica] 75 mg capsule 75 mg PO BID Qty: 60 0RF prednisone 20 mg tablet 20 mg PO TID Qty: 15 0RF Rx Instructions: 1 p.o. 3 times daily x3 days, 1 p.o. twice daily x2 days, 1 p.o. daily x2 days Referrals: Monika Simpson MD [Primary Care Provider, [facility]] Print Language: Polish Sign Out Sign Out Data: Patient Sign Out occurred on 02/05/25 at 06:08. Patient's care was discussed, and care was transferred from Jabier Regalado MD to Adama Ceballos DO. Coding Level of Care Code ED Mobile Developer for Kim Mitchell
[2025-02-05 05:52] VITALS: BP 161/86
--- NOTE | 2025-02-05 05:52 | PC.NURSE ---
Pt. crawling down the hallway with person who brought her in following with her wheelchair. Pt. states that she can not wait she needs something for pain , she is going to crawl out to the parking lot and into the highway. Pt. put back in her chair and brought back to room. Pt. in room for 18 minutes.
--- NOTE | 2025-02-05 06:10 | PC.NURSE ---
Pt. refuses to hold arm still for IV attempts and continues to jump up in bed and states that she is going to crawl out into the street.
[2025-02-05 06:24] LABS: Basophils % 0.4 %; Eosinophils % 0.2 %; Hematocrit 32.4 % (36-47); Lymphocytes # 1.7 10^3/uL (0.8-4.8); Lymphocytes % 16.5 %; Mean Corpuscular HGB Conc 32.7 g/dL (30-55); Mean Corpuscular Hemoglobin 30.4 pg (27-33); Mean Corpuscular Volume 92.8 fl (85-98); Mean Platelet Volume 8.5 fL (7.4-10.4); Monocytes # 0.8 10^3/uL (0.2-0.9); Monocytes % 7.5 %; Neutrophils # 7.54 10^3/uL (1.8-7.7); Neutrophils % 74.9 %; Nucleated Red Blood Cells % 0 %; Platelet Count 334 10^3/cmm (157-399); Red Blood Count 3.49 10^6/uL (3.85-5.65); Red Cell Distribution Width 15.3 % (12.1-15.1); White Blood Count 10.07 10^3/uL (3.29-11.43)
[2025-02-05] MEDS: ziprasidone 20 mg/mL SDV 10 MG IM ×2 (06:25→12:29)
[2025-02-05] MEDS: LORazepam 1 MG/0.5 ML injection 2 MG IM (06:25)
[2025-02-05] MEDS: water for injection-sterile 10 ML (06:30)
[2025-02-05 06:41] LABS: Lactic Sepsis W/Reflex 1.3 mmol/L (0.5-2.2)
[2025-02-05 06:42] LABS: Alanine Aminotransferase 12 U/L (0-33); Albumin Level 3.6 g/dL (3.5-5.2); Alkaline Phosphatase 146 U/L (35-105); Anion Gap 22.5 (5-19); Aspartate Amino Transferase 13 U/L (0-32); Blood Urea Nitrogen 67 mg/dL (6-20); Calcium 8.9 mg/dL (8.5-10.5); Carbon Dioxide 19 mmol/L (22-29); Chloride 104 mmol/L (98-107); Creatinine Clr Calc Pharmacy 17.6177; Globulin 3.6 g/dL (1.3-4.6); Glomerular Filtration Rate 12.1 mL/min (90-130); Glucose 146 mg/dL (65-115); Lipase 34 U/L (13-60); Osmolality Calculated 314 mOsm/kg (285-295); Potassium 4.5 mmol/L (3.5-5.1); Sodium 141 mmol/L (136-145); Total Bilirubin 0.4 mg/dL (0.15-1.2); Total Protein 7.2 g/dL (6.6-8.7)
[2025-02-05 07:00] VITALS: BP 134/94; O2SAT 100
--- NOTE | 2025-02-05 07:10 | PC.NURSE ---
96 rights read to pt by this RN and information security systems instructor. pt verbalized understanding and had no further questions at this time. copy of rights left with pt.
[2025-02-05 08:35] VITALS: BP 138/76; RESP 18; O2SAT 95
--- NOTE | 2025-02-05 08:48 | USCV_ITS ---
Cherrie Solomon Age: 44 Gender: F : 1980 Exam Date: 02/05/2025 09:19 Ordering Phys: Adama Ceballos DO Technologist: SHELLEY [place] [facility] [place]: Embolization seen on CT Aortic Velocity @ SMA (cm/s) 59.8 RIGHT KIDNEY LEFT KIDNEY Velocity (cm/s) Velocity (cm/s) Sys/Linares Sys/Linares Resistive Index Resistive Index 23.3 / 6.8 0.71 Proximal Renal Artery 44.2 / 15.2 0.66 20.9 / 7.4 0.64 Mid Renal Artery 49.4 / 13.9 0.72 44.8 / 14.4 0.68 Distal Renal Artery 71.6 / 24.6 0.66 47.1 / 13.5 0.71 Hilar 91.8 / 23.2 0.75 28.3 / 8.0 0.72 Upper Pole 23.7 / 7.0 0.70 22.7 / 5.4 0.76 Mid Pole 28.9 / 5.4 0.81 28.9 / 8.0 0.72 Lower Pole 14.5 / 7.5 0.48 0.74 Renal Aortic Ratio 1.26 Accleration Time (sec) 243.20 Hilar 623.50 110.00 Upper Pole 131.60 68.70 Mid Pole 149.10 95.80 Lower Pole 67.60 9.4 Kidney Length (cm) 10.0 CONCLUSIONS No hydronephrosis in either kidney Renal arteries are grossly patent bilaterally Abnormal appearance to right kidney with loss of the normal corticomedullary differentiation similiar to 11/10 Ultrasound. Interval coil embolization Right kidney of a hilar vessel Masslike enlargement of upper pole right kidney is indeterminate, some of which may be due to edema or duplicated collection system. Mass not excluded. Clinical history not currently available Luis Crabtree MD (Electronically Signed) Final Date: 05 February 2025 10:22 S
[2025-02-05 09:23] LABS: Bilirubin Urine Negative (Negative); Blood Urine Negative (Negative); Glucose Urine UA Trace (Normal); Ketones Urine Negative (Negative); Leukocyte Esterase Urine Negative (Negative); Nitrate Urine Negative (Negative); Protein Urine 4+ (Negative); Specific Gravity, Urine 1.021 (1.005-1.030); Urine Appearance Clear (CLEAR); Urine Color Yellow (Yellow); pH Urine 7.5 (5-7)
[2025-02-05 09:25] LABS: Add Urine Microscopic? YES; Bacteria Urine None Seen /hpf; Hyaline Casts Urine 1.21 /lpf; RBC Urine 0-2 /hpf (0-2); Squamous Epithelial Cell Urine 0-5 /hpf (0-5); WBC Urine 0-5 /hpf (0-5)
[2025-02-05 09:30] LABS: Amphetamines Screen Urine Negative (Negative); Barbiturates Screen Urine Negative (Negative); Benzodiazepines Screen Urine Negative (Negative); Cocaine Screen Urine Negative (Negative); Opiate Screen Urine Negative (Negative); PCP Screen Urine Negative (Negative); THC Screen Urine Positive (Negative)
[2025-02-05] MEDS: sodium chloride 0.9% 1,000 ML 999 ML IV (09:57)
[2025-02-05 09:59] LABS: Add Urine Culture? No; UA Slide Review UA Slide Review Perf
[2025-02-05 10:23] VITALS: PULSE 84; O2SAT 97
--- NOTE | 2025-02-05 10:23 | PC.NURSE ---
pt sleeping with 18 bpm and equal chest rise. pain medication is held due to patient sleeping.
[2025-02-05 12:05] VITALS: BP 141/72; PULSE 86; O2SAT 98
[2025-02-05] MEDS: morphine 4 mg/mL SDV 1 mL 2 MG IVP (12:05)
== END 2025-02-05 12:06 ==
PROVIDERS: Emergency Medicine; Emergency Provider Family Medicine; PCP Family Medicine
DX: N28.0 Ischemia and infarction of kidney (principal); N17.9 Acute kidney failure, unspecified; R45.851 Suicidal ideations; E78.5 Hyperlipidemia, unspecified; I25.10 Atherosclerotic heart disease of native coronary artery without angina pectoris; E10.22 Type 1 diabetes mellitus with diabetic chronic kidney disease; I12.9 Hypertensive chronic kidney disease with stage 1 through stage 4 chronic kidney disease, or unspecified chronic kidney disease; N18.2 Chronic kidney disease, stage 2 (mild)
CPT/HCPCS: 36415; 74176; 80053; 80306; 81001; 83605; 83690; 85025; 87040; 93975; 96361; 96372; 96374; 99285; J2060; J2270; J3486; J7030

== ENCOUNTER 2025-03-13 11:09 | Emergency (ER) | payer MEDICAID, SELFPAY ==
--- OUTSIDE RECORDS SUMMARY | 2025-03-13 11:13 | XMS_ITS | Encounter Summary ---
Author Organization [facility] Address [address] [place] [address] Care Team Providers Care Wash And Greaser Name Role Phone Kentrell Herring MD Primary Care Provider + Encounter Details Date Type Department Care Team (Late st Contact Info) Description 01/29/[address] [facility] Emergency Department [address] 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 Gender Identity Not on file Sexual Orientation Not on file documented as of this encounter Plan of Treatment Not on file documented as of this encounter Procedures Procedure Name Priority Date/Time Associated Diagnosis Comments GLUCOSE URINALYSIS, QUALITATIVE Routine 01/29/2007 7:36 PM CDT URINALYSIS MICROSCOPY ONLY Routine 01/29/2007 7:36 PM CDT KETONE, QUALITATIVE, URINE Routine 01/29/2007 7:36 PM CDT URINALYSIS W/REFLEX MICROSCOPIC Routine 01/29/2007 7:36 PM CDT CBC WITH DIFFERENTIAL Routine 01/29/2007 7:03 PM CDT BETA HYDROXYBUTYRATE Routine 01/29/2007 6:53 PM CDT HCG QUANTITATIVE, BLOOD Routine 01/30/20 6:53 PM CDT LIPASE Routine 01/29/2007 6:53 PM CDT COMPREHENSIVE METABOLIC PANEL Routine 01/29/2007 6:53 PM CDT POC GLUCOSE Routine 01/29/2007 6:49 PM CDT documented in this encounter Results * (ABNORMAL) URINALYSIS MICROSCOPY ONLY (01/29/2007 7:36 PM CDT) WBC URINE >80(A) 0 - 2 INTERFACE SYSTEM RBC UA 11-15(A) 0 - 2 INTERFACE SYSTEM HYALINE CAST None Seen 0 - 2 INTERFA CE SYSTEM BACTERIA UA Moderate(A ) None Seen INTERFACE SYSTEM 01/29/2007 7:36 PM CDT Baljit Farrell MD URINE ORDERABLES Edited Performing Organization Address [facility] de Phone Number INTERFACE SYSTEM Refer to clinic/hospital department * (ABNORMAL) ACETONE QUALITATIVE, URINE (01/29/2007 7:36 PM CDT) KETONES UA Large(A) Negative INTERFACE SYSTEM 01/29/2007 7:36 PM CDT Baljit Farrell MD URINE ORDERABLES Edited Performing Organization Address City/[facility]/ZIP Co de Phone Number INTERFACE SYSTEM Refer to clinic/hospital department * (ABNORMAL) GLUCOSE URINALYSIS, QUALITATIVE (01/29/2007 7:36 PM CDT) GLUCOSE, URINE 500 mg/dl(A) Negative INTERFACE SYSTEM 01/29/2007 7:36 PM CDT Baljit Farrell MD URINE ORDERABLES Edited Performing Organization Address City/[facility] Co de Phone Number INTERFACE SYSTEM Refer to clinic/hospital department * (ABNORMAL) URINALYSIS (01/29/2007 7:36 PM CDT) COLOR UA Yellow Straw INTERFACE SYSTEM CLARITY UA SL CLOUDY Clear INTERFACE SYSTEM LEUKOCYTE ESTERASE UA Small(A) NEGATIVE INTERFACE SYSTEM NITRITE UA POSITIVE(A) NEGATIVE INTERFA CE SYSTEM PH UA 6.0 5.0 - 9.0 INTERFACE SYSTEM PROTEIN UA 100 mg/dl(A) NEGATIVE INTERF CRUZ SYSTEM UROBILINOGEN UA 0.2 0.2 INTE RFACE SYSTEM BILIRUBIN UA NEGATIVE NEGATIVE INTERFA CE SYSTEM BLOOD UA MODERATE(A) NEGATIVE INTERFAC E SYSTEM SPECIFIC GRAVITY UA 1.025 1.005 - 1.030 INTERFACE SYSTEM MICRO EXAM Yes(A) No INTERFACE SYSTEM 01/29/2007 7:36 PM CDT us Baljit Farrell MD URINE ORDERABLES Edited INTERFACE SYSTEM Refer to clinic/hospital department * (ABNORMAL) CBC WITH DIFFERENTIAL (01/29/2007 7:03 PM CDT) WBC 13.5(H) 4.5 - 11.0 K/ul INTERFACE SYSTEM RBC 5.36 4.20 - 5.40 Mil/ul INTERFACE SYSTEM HEMOGLOBIN 15.1 12.0 - 16.0 g/dL INTERFACE SYSTEM HEMATOCRIT 43.4 36.0 - 46.0 % INTERFACE SYSTEM MCV 81.0(L) 84.0 - 103.0 Fl INTERFACE SYSTEM MCH 28.2 27.0 - 34.0 pg INTERFACE SYSTEM MCHC 34.8 30.0 - 35.0 g/dL INTERFACE SYSTEM RDW 13.8 11.0 - 14.5 % INTERFACE SYSTEM PLATELETS 409 140 - 440 K/ul INTERFACE SYSTEM MPV 9.4 8.9 - 12.8 Fl INTERFACE SYSTEM NEUTROPHILS 81.0(H) 42.2 - 75.2 % INTERFACE SYSTEM LYMPHOCYTES 11.8(L) 24.0 - 44.0 % INTERFACE SYSTEM MONOCYTES 6.7 2.0 - 10.0 % INTERFACE SYSTEM EOSINOPHILS 0.3 0.0 - 7.0 % INTERFACE SYSTEM BASOPHILS 0.2 0.0 - 1.0 % INTERFACE SYSTEM NEUTROPHIL ABSOLUTE 11.0(H) 2.0 - 8.0 K/ul INTERFACE SYSTEM LYMPHOCYTE ABSOLUTE 1.6 1.2 - 4.0 K/ul INTERFACE SYSTEM MONOCYTE ABSOLUTE 0.9(H) 0.1 - 0.6 K/ul INTERFACE SYSTEM EOSINOPHIL ABSOLUTE 0.0 0.0 - 0.7 K/ul INTERFACE SYSTEM BASOPHILS ABSOLUTE 0.0 0.0 - 0.2 K/ul INTERFACE SYSTEM 01/29/2007 7:03 PM CDT Baljit Farrell MD HEMATOLOGY ORDERABLES Jc marcela Performing Organization Address City/[facility] de Phone Number INTERFACE SYSTEM Refer to clinic/hospital department * LIPASE (01/29/2007 6:53 PM CDT) LIPASE 24 6 - 51 U/L INTERFACE SYSTEM Comment: As of 05 the [facility] has changed testing methods. The new reference range is 6-51 The old referance range was 23-300 01/29/2007 6:53 PM CDT Baljit Farrell MD CHEMISTRY ORDERABLES Edit ed Performing Organization Address [facility] Phone Number INTERFACE SYSTEM Refer to clinic/hospital department * (ABNORMAL) BETA HYDROXYBUTYRATE (01/29/2007 6:53 PM CDT) BETA HYDROXYBUTYRATE 1.22(H) 0.00 - 0.25 mmol/l INTERFACE SYSTEM 01/29/2007 6:53 PM CDT Baljit Farrell MD CHEMISTRY ORDERABLES Edit ed Performing Organization Address [facility] de Phone Number INTERFACE SYSTEM Refer to clinic/hospital department * BETA HCG QUANTITATIVE, BLOOD (01/29/2007 6:53 PM CDT) CHORIONIC GONADOTROPIN, TOTAL <2.0 0.0 - 10.0 mlU/ML INTERFACE SYSTEM Comment: Total HCG levels between 10 mIU/mL and 25 mIU/mL may be indicative of early but need to be correlated with other clinical findings. HCG ranges during normal , as reported by the pipe assembly worker, are summarized as follows: Gestational Age Expected hCG Values (mIU/ml) 0.2-1 Weeks 5 - 50 1-2 Weeks 50 - 500 2-3 Weeks 100 - 5,000 3-4 Weeks 1,000 - 50,000 5-6 Weeks 10,000 - 100,000 6-8 Weeks 15,000 - 200,000 2-3 Months 10,000 - 100,000 01/29/2007 6:53 PM CDT us Baljit Farrell MD CHEMISTRY ORDERABLES Edit ed INTERFACE SYSTEM Refer to clinic/hospital department * (ABNORMAL) COMPREHENSIVE METABOLIC PANEL (01/29/2007 6:53 PM CDT) GLUCOSE 312(H) 70 - 110 mg/dL INTERFACE SYSTEM BUN 7 7 - 17 mg/dL INTERFACE SYSTEM CREATININE 0.8 0.7 - 1.2 mg/dL INTERFACE SYSTEM SODIUM 135(L) 136 - 145 mEq/L INTERFACE SYSTEM POTASSIUM 3.7 3.5 - 5.0 mEq/L INTERFACE SYSTEM CHLORIDE 98 95 - 110 mEq/L INTERFACE SYSTEM CO2 22 22 - 32 mmol/l INTERFACE SYSTEM CALCIUM 10.5 8.4 - 10.5 mg/dL INTERFACE SYSTEM TOTAL PROTEIN 8.9(H) 6.3 - 8.2 g/dL INTERFACE SYSTEM ALBUMIN 4.9 3.5 - 5.0 g/dL INTERFACE SYSTEM ALKALINE PHOSPHATASE 115(H) 25 - 100 U/L INTERFACE SYSTEM AST 18 8 - 33 U/L INTERFACE SYSTEM ALT 27 4 - 36 IU/L INTERFACE SYSTEM BILIRUBIN TOTAL 0.8 0.3 - 1.2 mg/dL INTERFACE SYSTEM GLOBULIN (CALC) 4.0(H) 2.4 - 3.9 g/dL INTERFACE SYSTEM ALBUMIN/GLOBULIN RATIO 1.2 1.0 - 2.3 INTERFACE SYSTEM ANION GAP 19 9 - 20 mEq/L INTERFACE SYSTEM OSMOLALITY, CALCULATED 288 275 - 295 mOsm/Kg INTERFACE SYSTEM 01/29/2007 6:53 PM CDT us Baljit Farrell MD CHEMISTRY ORDERABLES Edit ed Performing Organization Address City/[facility] Co de Phone Number INTERFACE SYSTEM Refer to clinic/hospital department * (ABNORMAL) POC GLUCOSE (01/29/2007 6:49 PM CDT) GLUCOSE POC 273(H) 60 - 100 mg/dL INTERFACE SYSTEM 01/29/2007 6:49 PM CDT us Baljit Farrell MD POINT OF CARE TESTING Jc marcela Performing Organization Address [facility] de Phone Number INTERFACE SYSTEM Refer to clinic/hospital department documented in this encounter Visit Diagnoses Diagnosis Acute pyelonephritis without lesion of renal medullary necrosis- Primary documented in this encounter Care Teams Wash And Greaser Relationship Specialty Start Date End Date Kentrell Herring MD [address] [place] [address] PCP - General Family Practice 09/19/18 documented as of this encounter
--- OUTSIDE RECORDS SUMMARY | 2025-03-13 11:13 | XMS_ITS | Encounter Summary ---
Author Organization [facility] Address [address] [place] [address] Care Team Providers Care Agile Scrum Coach Name Role Phone Kentrell Herring MD Primary Care Provider + Encounter Details Date Type Department Care Team (Late st Contact Info) Description 11/27/2007 Emergency [facility] Emergency Department [address] 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 Gender Identity Not on file Sexual Orientation Not on file documented as of this encounter Plan of Treatment Not on file documented as of this encounter Procedures Procedure Name Priority Date/Time Associated Diagnosis Comments URINE CULTURE Stat 11/27/2007 7:02 PM CDT URINALYSIS MICROSCOPY ONLY Stat 11/27/2007 3:20 PM CDT URINALYSIS W/REFLEX MICROSCOPIC Stat 11/27/2007 3:20 PM CDT POC GLUCOSE Routine 11/27/2007 3:18 PM CDT POC GLUCOSE Routine 11/27/2007 1:21 PM CDT URINALYSIS MICROSCOPY ONLY Stat 11/27/2007 11:22 AM CDT URINALYSIS W/REFLEX MICROSCOPIC Stat 11/27/2007 11:22 AM CDT CBC WITH DIFFERENTIAL Stat 11/27/2007 10:09 AM CDT TSH Stat 11/27/2007 10:09 AM CDT ETHANOL LEVEL Stat 11/27/2007 10:09 AM CDT COMPREHENSIVE METABOLIC PANEL Stat 11/27/2007 10:09 AM CDT documented in this encounter Results * URINE CULTURE (11/27/2007 7:02 PM CDT) FINAL REPORT Mixed gram positive hayden suggestive of genital/skin hayden. If clinically indicated, please submit an appropriately collected specimen. INTERFACE SYSTEM 11/27/2007 7:02 PM CDT 11/27/2007 7:02 PM CDT Kelly Pereira MD MICROBIOLOGY - GENERAL ORDERABL ES Final Result Performing Organization Address City/State/[facility] Co de Phone Number INTERFACE SYSTEM Refer to clinic/hospital department * (ABNORMAL) URINALYSIS MICROSCOPY ONLY (11/27/2007 3:20 PM CDT) HYALINE CAST None Seen 0 - [address] [facility] WBC URINE 20-30 [facility] BACTERIA UA Moderate(A ) None Seen [facility] RBC UA 0-2 0 - 2 [facility] Urine specimen (specimen) 11/27/2007 3:20 PM CDT 11/27/2007 3:20 PM CDT Narrative [facility] - 11/27/2007 3:46 PM CDT Microscopic ordered by policy Kelly Pereira MD URINE ORDERABLES Final Result Performing Organization Address City/[facility] de Phone Number [facility] [address] [place] [address] * (ABNORMAL) URINALYSIS (11/27/2007 3:20 PM CDT) COLOR UA Yellow Straw [facility] SPECIFIC GRAVITY UA 1.025 <=1.005 [facility] GLUCOSE UA 500 mg/dl(A) NEGATIVE [facility] PH UA 5.0 5.0 - 9.0 [facility] BILIRUBIN UA NEGATIVE NEGATIVE [facility] NITRITE UA NEGATIVE NEGATIVE [facility] KETONES UA >=80 mg/dl(A) NEGATIVE [facility] MICRO EXAM Yes(A) No [facility] LEUKOCYTE ESTERASE UA Trace(A) NEGATIVE [facility] PROTEIN UA Trace(A) NEGATIVE [facility] BLOOD UA Trace(A) NEGATIVE [facility] CLARITY UA Cloudy(A) Clear [facility] UROBILINOGEN UA 0.2 0.2 [facility] Urine specimen (specimen) 11/27/2007 3:20 PM CDT 11/27/2007 3:20 PM CDT us Kelly Pereira MD URINE ORDERABLES Final Result Performing Organization Address [facility] de Phone Number [facility] [address] [place] [address] * (ABNORMAL) POC GLUCOSE (11/27/2007 3:18 PM CDT) GLUCOSE POC 317(H) 60 - 100 mg/dL [facility] Venous blood specimen (specimen) 11/27/2007 3:18 PM CDT 11/28/2007 10:57 AM CDT us Kelly Pereira MD POINT OF CARE TESTING Final Res ult Performing Organization Address [facility] Co de Phone Number [facility] [address] [place] [address] * (ABNORMAL) POC GLUCOSE (11/27/2007 1:21 PM CDT) GLUCOSE POC 293(H) 60 - 100 mg/dL [facility] Venous blood specimen (specimen) 11/27/2007 1:21 PM CDT 11/28/2007 10:57 AM CDT Kelly Pereira MD POINT OF CARE TESTING Final Res ult Performing Organization Address [facility] de Phone Number [facility] [address] [place] [address] * (ABNORMAL) URINALYSIS MICROSCOPY ONLY (11/27/2007 11:22 AM CDT) Pathologist [facility] WBC URINE 11-15(A) 0 - 2 [facility] BACTERIA UA Small(A) None Seen [facility] RBC UA 0-2 0 - 2 [facility] HYALINE CAST None Seen 0 - [address] [facility] Urine specimen (specimen) 11/27/2007 11:22 AM CDT 11/27/2007 11:25 AM CDT Narrative [facility] - 11/27/2007 11:36 AM CDT Microscopic ordered by policy Kelly Pereira MD URINE ORDERABLES Final Result Performing Organization Address [facility] de Phone Number [facility] [address] [place] [address] * (ABNORMAL) URINALYSIS (11/27/2007 11:22 AM CDT) PH UA 5.5 5.0 - 9.0 [facility] BILIRUBIN UA NEGATIVE NEGATIVE [facility] LEUKOCYTE ESTERASE UA Trace(A) NEGATIVE [facility] MICRO EXAM Yes(A) No [facility] KETONES UA >=80 mg/dl(A) NEGATIVE [facility] COLOR UA Yellow Straw [facility] PROTEIN UA 30 mg/dl(A) NEGATIVE [facility] BLOOD UA Trace(A) NEGATIVE [facility] NITRITE UA NEGATIVE NEGATIVE [facility] UROBILINOGEN UA 0.2 0.2 [facility] CLARITY UA SL CLOUDY Clear [facility] GLUCOSE UA >=1000 mg/dl(A) NEGATIVE [facility] SPECIFIC GRAVITY UA 1.020 <=1.005 [facility] Urine specimen (specimen) 11/27/2007 11:22 AM CDT 11/27/2007 11:25 AM CDT Kelly Pereira MD URINE ORDERABLES Final Result Performing Organization Address [facility] Phone Number [facility] [address] [place] [address] * TSH (11/27/2007 10:09 AM CDT) TSH 0.490 0.350 - 5.500 uIU/ml [facility] Blood specimen (specimen) 11/27/2007 10:09 AM CDT 11/27/2007 10:13 AM CDT Kelly Pereira MD CHEMISTRY ORDERABLES Final Resu lt Performing Organization Address [facility] Phone Number [facility] [address] [place] [address] * (ABNORMAL) COMPREHENSIVE METABOLIC PANEL (11/27/2007 10:09 AM CDT) CREATININE 0.6(L) 0.7 - 1.2 mg/dL [facility] CALCIUM 9.5 8.4 - 10.5 mg/dL [facility] ALT 24 4 - 36 IU/L [facility] OSMOLALITY, CALCULATED 289 275 - 295 mOsm/Kg [facility] GLUCOSE 333(H) 70 - 110 mg/dL [facility] CHLORIDE 101 95 - 110 mEq/L [facility] ALKALINE PHOSPHATASE 100 25 - 100 U/L [facility] ALBUMIN/GLOBULIN RATIO 1.3 1.0 - 2.3 [facility] SODIUM 134(L) 136 - 145 mEq/L [facility] TOTAL PROTEIN 7.9 6.3 - 8.2 g/dL [facility] BILIRUBIN TOTAL 0.4 0.3 - 1.2 mg/dL [facility] BUN 12 7 - 17 mg/dL [facility] CO2 17(L) 22 - 32 mmol/l [facility] ANION GAP 20 9 - 20 mEq/L [facility] AST 21 8 - 33 U/L [facility] ALBUMIN 4.4 3.5 - 5.0 g/dL [facility] POTASSIUM 3.8 3.5 - 5.0 mEq/L [facility] GLOBULIN (CALC) 3.5 2.4 - 3.9 g/dL [facility] Blood specimen (specimen) 11/27/2007 10:09 AM CDT 11/27/2007 10:13 AM CDT us Kelly Pereira MD CHEMISTRY ORDERABLES Final Resu lt [facility] [address] [place] [address] * (ABNORMAL) CBC WITH DIFFERENTIAL (11/27/2007 10:09 AM CDT) NEUTROPHIL ABSOLUTE 7.7 2.0 - 8.0 K/ul [facility] NEUTROPHILS 81.1(H) 42.2 - 75.2 % [facility] HEMATOCRIT 43.8 36.0 - 46.0 % [facility] MCH 26.9(L) 27.0 - 34.0 pg [facility] EOSINOPHILS 0.6 0.0 - 7.0 % [facility] PLATELETS 360 140 - 440 K/ul [facility] EOSINOPHIL ABSOLUTE 0.1 0.0 - 0.7 K/ul [facility] RBC 5.50(H) 4.20 - 5.40 Mil/ul [facility] LYMPHOCYTES 14.1(L) 24.0 - 44.0 % [facility] MCHC 33.8 30.0 - 35.0 g/dL [facility] LYMPHOCYTE ABSOLUTE 1.3 1.2 - 4.0 K/ul [facility] MPV 8.7(L) 8.9 - 12.8 Fl [facility] BASOPHILS ABSOLUTE 0.0 0.0 - 0.2 K/ul [facility] BASOPHILS 0.3 0.0 - 1.0 % [facility] HEMOGLOBIN 14.8 12.0 - 16.0 g/dL [facility] RDW 13.5 11.0 - 14.5 % [facility] MONOCYTE ABSOLUTE 0.4 0.1 - 0.6 K/ul [facility] MONOCYTES 3.9 2.0 - 10.0 % [facility] WBC 9.4 4.5 - 11.0 K/ul [facility] MCV 79.6(L) 84.0 - 103.0 Fl [facility] Blood specimen (specimen) 11/27/2007 10:09 AM CDT 11/27/2007 10:13 AM CDT Kelly Pereira MD HEMATOLOGY ORDERABLES Final Res ult Performing Organization Address City/[facility] Phone Number [facility] [address] [place] [address] * ETHANOL (11/27/2007 10:09 AM CDT) ETHANOL <10 <=10 mg/dL [facility] ETHANOL % <0.010 <=0.010 % [facility] Blood specimen (specimen) 11/27/2007 10:09 AM CDT 11/27/2007 10:13 AM CDT Kelly Pereira MD CHEMISTRY ORDERABLES Final Resu lt [facility] [address] [place] [address] documented in this encounter Visit Diagnoses Not on filedocumented in this encounter Care Teams Agile Scrum Coach Relationship Specialty Start Date End Date Kentrell Herring MD [address] [place] [address] PCP - General Family Practice 09/19/18 documented as of this encounter
--- OUTSIDE RECORDS SUMMARY | 2025-03-13 11:13 | XMS_ITS | Clinical Summary ---
Author Organization [facility] Address [address] [place] [address] Care Team Providers Care Loss Prevention Supervisor Name Role Phone Monika Simpson MD Primary Care Provider [phone] Allergies Active Allergy Reactions Criticality Noted Date Comments Dhe Palpitations Low 09/22/2018 Latex Rash Low 01/16/2019 Skin reaction Morphine Shortness of Breath/Wheezing High 07/30/2017 Pt states, it makes me stop breathing Sulfamethoxazole-Tri methoprim Hives High 11/08/2023 Medications polyethylene glycol (MIRALAX) 17 gram Powder in Packet Take 1 Packet (17 Grams) by mouth 2 times daily as needed for Constipation. 4 Active ondansetron (ZOFRAN ODT) 4 mg Tablet, Rapid Dissolve Take 1 Tablet (4 mg) by mouth every 8 hours as needed for Nausea/Emesis. Dissolve tablet on top of tongue, then swallow with saliva. 20 Tablet 4 Active rOPINIRole (REQUIP) 1 mg tabletIndications :Restless leg syndrome Take 1 Tablet (1 mg) by mouth daily at bedtime. 90 Tablet 3 4 Active pantoprazole (PROTONIX) 40 mg Tablet, Delayed Release (E.C.) Take 40 mg by mouth daily. 4 Active hydrALAZINE (APRESOLINE) 100 mg Tablet tablet Take 1 Tablet (100 mg) by mouth every 8 hours. 90 Tablet 5 Active propranoloL (INDERAL) 20 mg tablet Take 1 Tablet (20 mg) by mouth every 8 hours. 90 Tablet 5 Active QUEtiapine (SEROquel) 50 mg tabletIndications :Bipolar disorder, current episode mixed, mild (CMS/HCC) Take 1 Tablet (50 mg) by mouth daily. 90 Tablet 3 5 Active QUEtiapine (SEROquel) 100 mg tabletIndications :Bipolar disorder, current episode mixed, mild (CMS/HCC) Take 1 Tablet (100 mg) by mouth daily at bedtime. 90 Tablet 3 5 Active naloxone (NARCAN) 4 mg/spray [place], Non-Aerosol EMERGENCY USE ONLY: Administer 1 spray (4 mg) in one nostril one time. May repeat in alternating nostrils every 2-3 min until responsive or EMS arrives. 2 Each 3 5 Active PARoxetine HCl (PAXIL) 20 mg tabletIndications :ALEJANDRO (generalized anxiety disorder) Take 1 Tablet (20 mg) by mouth daily. 90 Tablet 3 5 Active sodium bicarbonate 650 mg tablet Take 1 Tablet (650 mg) by mouth 2 times daily. 30 Tablet 5 Active walker with wheels Face to Face completed within 6 months: yes Length of Need: 99 months 1 Each 5 Active oxyCODONE-acetami nophen (PERCOCET) 7.5-325 mg TabletIndications :Chronic bilateral low back pain without sciatica,Acute osteomyelitis of cervical spine (CMS/HCC) Take 1 Tablet by mouth every 6 hours as needed for Pain, Moderate. Max Daily Amount: 4 Tablets 12 Tablet 5 Active Active Problems Problem Noted Date Diagnosed Date Acute kidney injury superimposed on chronic kidn ey disease 02/06/2025 Bipolar disorder, current episode manic, severe 02/06/2025 Manic behavior 02/06/2025 Renal infarct 02/06/2025 Suicidal ideation 02/06/2025 Bipolar disorder, current ep isode mixed, severe, without psychotic features 02/06/2025 Acute osteomyelitis of cervical spine 12/18/2024 Elevated C-reactive protein (CRP) 12/09/2024 Type 2 diabetes mellitus with other specified co mplication 12/09/2024 Chronic multifocal osteomyelitis of femur 2024 Acute hematogenous osteomyelitis 12/03/2024 Elevated erythrocyte sedimentation rate 12/04/19 25 Abnormal MRI, cervical spine 12/02/2024 Effusion of prepatellar bursa, right 12/01/2024 Acute metabolic encephalopathy 12/01/2024 Acute low back pain 12/01/2024 Severely aggressive behavior 11/30/2024 Infection of above knee ampu tation stump of left lower extremity 11/30/2024 Pneumonia of left upper lobe due to infectious o rganism 11/30/2024 Chronic bilateral low back pain without sciatica 05/15/2024 Other insomnia 05/07/2024 Cannabis use disorder 05/01/2024 Slow transit constipation 05/01/2024 Chronic kidney disease 05/01/2024 ALEJANDRO (generalized anxiety disorder) 03/12/2024 Bipolar disorder, current ep isode mixed, severe, with psychotic features 03/12/2024 Chronic bilateral thoracic back pain 03/12/2024 Renal lesion 02/08/2024 Cannabis hyperemesis syndrom e concurrent with and due to cannabis abuse 02/06/2024 Benign hypertension with stage 3b chronic kidney disease 02/05/2024 S/P bilateral BKA (below knee amputation) 2023 Mood disorder 02/01/2024 Peripheral neuropathy 02/01/2024 Intractable nausea and vomiting 01/31/2024 Spinal osteoarthritis 12/10/2023 Precordial chest pain 11/16/2019 Old DE (myocardial infarction) 11/11/2019 Takotsubo cardiomyopathy 11/11/2019 Hyponatremia 07/20/2019 Hypercalcemia 07/09/2019 Restless leg syndrome 05/02/2019 Normocytic anemia 05/02/2019 Hypomagnesemia 03/24/2019 Sacral decubitus ulcer 03/04/2019 Weight loss 03/04/2019 Dyslipidemia 03/03/2019 ASHD (arteriosclerotic heart disease) 01/19/2019 Esophagitis, [place] grade C 10/03/2018 Hx of migraine headaches 09/27/2018 Essential hypertension 09/27/2018 Incidental pulmonary nodule, > 3mm and < 8mm rt lung 09/20/2018 Thrombocytosis 09/19/2018 Elevated alkaline phosphatase level 09/19/2018 Noncompliance with medication regimen 07/04/2018 Diabetic polyneuropathy asso ciated with type 2 diabetes mellitus 12/30/2017 H/O supraventricular tachycardia 12/18/2017 Overview (12/15/2020): [place] to be caffeine induced Hypokalemia Diabetic gastroparesis Intractable chronic migraine without aura and without status migrainosus Intractable cyclical vomiting with nausea Chronic abdominal pain Microcytic anemia Uncomplicated opioid dependence Current mild episode of tony r depressive disorder without prior episode Resolved Problems Problem Noted Date Diagnosed Date Resolved Date UTI (urinary tract infection) 02/05/2024 03/12/2024 Diabetes mellitus 02/01/2024 03/12/2024 Acute renal failure 01/31/2024 03/12/20 Acute cystitis without hematuria 11/26/2019 03/12/2024 Protein-calorie malnutrition, moderate 11/16/2019 03/12/2024 Acute coronary syndrome with high troponin 11/11/2019 03/12/2024 Overview (12/16/2020): Added automatically from request for surgery [id number] History of below-knee amputa tion of left [...] perceptible pit (no findings) (11/11/19 1430) Hand Mult Au Matic Operator: Unable to assess(s/p cath ) (11/11/19 1430) Percentage of Energy: Other (see comments)(varriable per pt - hx gastroparesis) (11/11/19 1430) Percentage of Weight Loss: >7.5% in 3 [...] pain 03/12/2024 PEG (percutaneous endoscopic gastrostomy) adjustment/replacement/removal 4 Occult GI bleeding 4 Encounters Date Type Department Care Team Description 03/11/[address] [facility] Health Information Management [id number] [place] [address] Provider, Abstract 03/11/[address] [address] Monika Simpson MD 03/10/[address] [phone] Monika Simpson MD Needs Appointment 03/09/2025 External Device Data [facility] Provider, Abstract 02/09/2025 External Device Data [facility] Provider, Abstract 02/08/[address] [phone] Monika Simpson MD Medication Refill 02/05/2025 2:40 PM CDT - 02/08/2025 5:59 PM CDT Hospital Encounter [address] Burn Unit [address] [place] [phone] Garett Esteban MD Allam, Bala Sudhakar Reddy, MD Nerella, Ravi V., MD Acute kidney injury superimposed on chronic kidney disease Discharge Disposition: Home or Self Care 02/05/2025 Travel 02/04/[address] [phone] Monika Simpson MD Medication Refill 01/06/2025 External Device Data [facility] Provider, Abstract 01/01/[address] [phone] Monika Simpson MD Chronic bilateral low back pain without sciatica; Acute osteomyelitis of cervical spine ([facility]) 12/29/2024 External Device Data [facility] Provider, Abstract 12/24/2024 3:00 PM CDT Office Visit [address] [phone] Monika Simpson MD Encounter for staple removal (Primary Dx) 12/23/2024 Telephone [facility] [address] [phone] Monika Simpson MD Provider Call 12/23/[address] [facility] [place] [address] [facility] [address] [place] [address] Bri Masters FNP S/P cervical spinal fusion (Primary Dx) 12/22/[address] [facility] [place] [address] [facility] [address] [place] [address] Bri Masters FNP Post-op Follow-up 12/22/[address] [phone] Monika Simpson MD Question 12/18/2024 11:20 AM CDT Office Visit [address] [phone] Monika Simpson MD Acute osteomyelitis of cervical spine (CMS/HCC) (Primary Dx); Chronic bilateral low back pain without sciatica; Uncomplicated opioid dependence; S/P bilateral BKA (below knee amputation) ([facility]/HCC); Bipolar disorder, current episode mixed, mild ([facility]/HCC); ALEJANDRO (generalized anxiety disorder); Diabetic polyneuropathy associated with type 2 diabetes mellitus ([facility]/HCC); CKD (chronic kidney disease) stage 4, GFR 15-29 ml/min ([facility]); Screening mammogram, encounter for; Declined influenza vaccine 11/30/2024 4:12 PM CDT - 12/14/2024 3:57 PM CDT Hospital Encounter [facility] 3rd Floor Medical Surgical [address] [place] [address] David Lyle MD Dharia, Het, MD Junaid, Nida, MD Martin, Patrick D, MD El Moghrabi, Noureddine, MD Baral, Saurav Raj, MD Stewart, Brandee Cathleen, DO Severely aggressive behavior Discharge Disposition: Home or Self Care from Last 3 Months Immunizations Immunization Administration Dates Next Due (ADACEL/BOOSTRIX)(10 YR UP) TDAP VACCINE, 0.5ML, IM 10/21/2021 (PNEUMOVAX 23)(50 YRS UP) PN EUMOCOCCAL POLYSACCHARIDE (PPV23) 0.5 ML, IM 07/02/2019 INFLUENZA VACCINE QUADRIVALENT 6 MOS UP PF IM ,07/02/2019 Influenza Seasonal Unspecified Formulation IM Family History Medical History Relation Name Comments [...] drink = 0.6 oz pur e alcohol) Comments No Sex and Gender Information Value Date Recorded Sex Assigned at Not on file Legal Sex 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 Gender Identity Not on file Sexual Orientation Not on file Last Filed Vital Signs Vital Sign Reading Time Taken Comments Blood Pressure 147/70 02/08/2025 1:54 PM CDT Pulse 75 02/08/2025 1:54 PM CDT Temperature 36.4 C (97.6 F) 02/08/2025 6:11 AM CDT Respiratory Rate 14 02/08/2025 1:54 PM CDT Oxygen Saturation 97% 02/08/2025 1:5 4 PM CDT Inhaled Oxygen Concentration - - Weight 64.4 kg (141 lb 15.6 oz) 02/05/2025 3:00 PM CDT Per chart review notes on 12/2024 Height 147.3 cm (4' 10 ) 12/24/2024 2:5 9 PM CDT Body Mass Index 29.67 12/24/2024 2:59 PM CDT Plan of Treatment Health Maintenance Due Date Last Done Comments DIABETES ANNUAL RETINAL EXAM 1996 HEPATITIS B VACCINES (1 of 3 - 19+ 3-dose series) 1997 Preventative Visit-Managed Medicaid 1997 HPV/Cotest (21-29) 1999 CERVICAL CANCER SCREENING 2008 HPV/Cotest (30-65) 2008 PAP SMEAR 2008 BREAST CANCER SCREENING 2018 LDL CHOLESTEROL ANNUAL 11/10/2020 11/11/2019, 2017 FIT-DNA Q 3 years 2023 FIT/FOBT Q 1 year 2023 Flex Sig/CT Colonography Q 5 years 2023 COVID-19 Vaccine ( season) 2024 09/19/2021 DIABETES MICROALBUMIN ANNUAL SCREEN 03/12/2025 03/12/2024 INFLUENZA VACCINE (#1) 2025 , 06/02/2024, 07/03/2021, Additional history exists DIABETES HBA1C Q 6 MONTHS 08/29/20252024, 09/13/2024, 05/01/2024, Additional history exists DIABETES: A1C (Auto Order) 02/26/202602/26, 09/13/2024, 05/01/2024, Additional history exists COLORECTAL SCREENING 06/26/2029 06/26/2019, 06/26/2019, 06/26/2019 Colorectal Cancer Screening 06/26/2029 DTAP/TDAP/TD VACCINES (2 - Td or Tdap) 10/22/2031 10/21/2021 HPV VACCINES Aged Out No longer eligi ble based on patient's age to complete this topic Medical Devices Implanted Type Area Staff Mine Warfare Officer Device Identifier Shelf Expiration Date Model / Serial / Lot Cage T1 Centerpiece Stratosphere 13mm Sz D [id number] - [id number] Implanted:Qty: 1 on 12/05/2024 by Mike Diaz MD at [facility] [place] Cage N/A: Neck [employer]- SOFAMOR DANEK 02/21/2026 [id number] / / [id number] Powerline-03/06 Implanted:Qty: 1 on 03/06/2019 by Ovi Cohen MD Catheter Right: Chest [id number] 03/18/2021 [id number] / / [id number] 30cm Gj Feeding Tube-10/15/2018 Implanted:Qty: 1 on 10/15/2018 by Ovi Cohen MD Feeding Device Jejunum 03/19/2020 0250-18- 30 / / [id number] Hemostatic Surgicel 3x4in 1942 - [id number] Implanted:06/20 by Pelon Rose DPM (Quantity not on file) Hemostatic Left: Foot [employer]J- [employer] 02/15/20231942 / / [id number] Hemostatic Surgifoam 1gm 1977 - [id number] Implanted:Qty: 1 on 12/05/2024 by Mike Diaz MD at [facility] Hemostatic N/A: Neck J[employer] 09/03/20261977 [id number] Hemostatic Surgifoam 1gm 1977 - [id number] Implanted:Qty: 1 on 12/05/2024 by Mike Diaz MD at [facility] Hemostatic N/A: Neck J[employer] 09/03/20261977 138558 Hemostatic Surgifoam 1gm 1977 - [id number] Implanted:Qty: 1 on 12/05/2024 by Mike Diaz MD at [facility] Hemostatic N/A: Neck J[employer]- [employer] 09/03/20261977 [id number] Plate [place] Ii Vision Elite 52.5mm [id number] - [id number] Implanted:Qty: 1 on 12/05/2024 by Mike Diaz MD at [facility] Plate N/A: Neck [employer] [place] [id number] / / Emiliano Std 3.0k833kd 6124389 - [id number] Implanted:Qty: 1 on 12/05/2024 by Mike Diaz MD at [facility] Emiliano N/A: Neck [employer]- SOFAMOR DANEK [id number] / / Connector Infinity Oc Lat Opn 10mm [id number] - [id number] Implanted:Qty: 1 on 12/05/2024 by Mike Diaz MD at [facility] Emiliano N/A: Neck [employer]- SOFAMOR DANEK 03/24/2026 [id number] / / [id number] Connector Infinity Oc Lat Opn 10mm [id number] - [id number] Implanted:Qty: 1 on 12/05/2024 by Mike Diaz MD at [facility] [place] Emiliano N/A: Neck [employer]- SOFAMOR DANEK 03/24/2026 [id number] / / [id number] Scre[address] St[address] S[address] Va 4.0x14mm [id number] - [id number] Implanted:Qty: 1 on 12/05/2024 by Mike Diaz MD at [facility] [place] Screw N/A: Neck [employer]FAM[employer]ANEK [id number] / / Screw Stlnts Sd Va 4.0x14mm [id number] - [id number] Implanted:Qty: 1 on 12/05/2024 by Mike Diaz MD at [facility] [place] Screw N/A: Neck [employer] [id number] / / Screw Infinity 3.5x12mm Mas [id number] - [id number] Implanted:Qty: 1 on 12/05/2024 by Mike Diaz MD at [facility] [place] Screw N/A: Neck [employer] [id number] / / Screw Infinity 3.5x12mm Mas 7193886 - [id number] Implanted:Qty: 1 on 12/05/2024 by Mike Diaz MD at [facility] [place] Screw N/A: Neck [employer] [id number] / / Screw Infinity 3.5x12mm Mas 6029063 - [id number] Implanted:Qty: 1 on 12/05/2024 by Mike Diaz MD at [facility] [place] Screw N/A: Neck [employer] [id number] / / Screw Infinity 3.5x12mm Mas 1232273 - [id number] Implanted:Qty: 1 on 12/05/2024 by Mike Diaz MD at [facility] [place] Screw N/A: Neck [employer] [id number] / / Screw Infinity 3.5x12mm Mas [id number] - [id number] Implanted:Qty: 1 on 12/05/2024 by Mike Diaz MD at [facility] Screw N/A: Neck [employer]K [id number] / / Screw Infinity 3.5x12mm Mas [id number] - [id number] Implanted:Qty: 1 on 12/05/2024 by Mike Diaz MD at [facility] Screw N/A: Neck [employer] [id number] / / Set Screw Infinity Oc M6 7983041 - [id number] Implanted:Qty: 1 on 12/05/2024 by Mike Diaz MD at [facility] Screw N/A: Neck [employer]K [id number] / / Set Screw Infinity Oc M6 3934191 - [id number] Implanted:Qty: 1 on 12/05/2024 by Mike Diaz MD at [facility] Screw N/A: Neck [employer] [id number] / / Set Screw Infinity Oc M6 0749775 - [id number] Implanted:Qty: 1 on 12/05/2024 by Mike Diaz MD at [facility] Screw N/A: Neck [employer] [id number] / / Set Screw Infinity Oc M6 6153844 - [id number] Implanted:Qty: 1 on 12/05/2024 by Mike Diaz MD at [facility] Screw N/A: Neck [employer]K [id number] / / Set Screw Infinity Oc M6 1402738 - [id number] Implanted:Qty: 1 on 12/05/2024 by Mike Diaz MD at [facility] Screw N/A: Neck [employer] [id number] / / Set Screw Infinity Oc M6 6132494 - [id number] Implanted:Qty: 1 on 12/05/2024 by Mike Diaz MD at [facility] Screw N/A: Neck [employer] SOFAMOR [employer]ANEK [id number] / / Set Screw Infinity Oc M6 9522515 - [id number] Implanted:Qty: 1 on 12/05/2024 by Mike Diaz MD at [facility] Screw N/A: Neck [employer] SOFAMOR [employer]ANEK [id number] / / Set Screw Infinity Oc M6 7341783 - [id number] Implanted:Qty: 1 on 12/05/2024 by Mike Diaz MD at [facility] Screw N/A: Neck [employer] SOFAM[employer]ANEK [id number] / / Set Screw Infinity Oc M6 3986610 - [id number] Implanted:Qty: 1 on 12/05/2024 by Mike Diaz MD at [facility] Screw N/A: Neck [employer] SOFAMOR [employer]ANEK [id number] / / Set Screw Infinity Oc M6 7755715 - [id number] Implanted:Qty: 1 on 12/05/2024 by Mike Diaz MD at [facility] Screw N/A: Neck [employer] SOFAM[employer]ANEK [id number] / / Set Screw Infinity Oc M6 3990572 - [id number] Implanted:Qty: 1 on 12/05/2024 by Mike Diaz MD at [facility] Screw N/A: Neck [employer] SOFAM[employer]ANEK [id number] / / Set Screw Infinity Oc M6 6550074 - [id number] Implanted:Qty: 1 on 12/05/2024 by Mike Diaz MD at [facility] Screw N/A: Neck [employer]ANEK 1405765 / / Screw Infinity 4.5x24mm Mas [id number] - [id number] Implanted:Qty: 1 on 12/05/2024 by Mike Diaz MD at [facility] Screw N/A: Neck [employer] SOFAMOR [employer]ANEK 03/24/2026 [id number] / / [id number] Screw Infinity 4.5x24mm Mas [id number] - [id number] Implanted:Qty: 1 on 12/05/2024 by Mike Diaz MD at [facility] [place] Screw N/A: Neck [employer] SOFAMOR DANEK 03/24/2026 [id number] / / [id number] Screw Infinity 4.5x24mm Mas [id number] - [id number] Implanted:Qty: 1 on 12/05/2024 by Mike Diaz MD at [facility] Screw N/A: Neck [employer] SOFAMOR [employer]ANEK 03/24/2026 [id number] / / [id number] Screw Infinity 4.5x24mm Mas [id number] - [id number] Implanted:Qty: 1 on 12/05/2024 by Mike Diaz MD at [facility] Screw N/A: Neck [employer] SOFAMOR DANEK 03/24/2026 [id number] / / [id number] Screw Stlnts Sd Va 4.0x14mm [id number] - [id number] Implanted:Qty: 1 on 12/05/2024 by Mike Diaz MD at [facility] Screw N/A: Neck [employer] SOFAMOR DANEK [id number] / / Screw Stlnts Sd Va 4.0x14mm [id number] - [id number] Implanted:Qty: 1 on 12/05/2024 by Mike Diaz MD at [facility] Screw N/A: Neck [employer] SOFAMOR [employer]ANEK [id number] / / Paste Bone Dbm Plus 1ml [id number] - [id number] Implanted:Qty: 1 on 12/05/2024 by Mike Diaz MD at [facility] Tissue N/A: Neck [employer] - SPINALGRAFT 04/15/2026 [id number] / [id number] / Paste Bone Dbm Plus 5ml [id number] - [id number] Implanted:Qty: 1 on 12/05/2024 by Mike Diaz MD at [facility] Tissue N/A: Neck [employer] - SPINALGRAFT 06/19/2026 [id number] / [id number] / Paste Bone Dbm Plus 5ml [id number] - [id number] Implanted:Qty: 1 on 12/05/2024 by Mike Diaz MD at [facility] [place] Tissue N/A: Neck [employer] - SPINALGRAFT 04/02/2026 [id number] / [id number] / Explanted Type Area Staff Mine Warfare Officer Device Identifier Shelf Expiration Date Model / Serial / Lot 16fr 30cm Richy Gastro-Jejuna l Feeding Tube- 9 Implanted:Qty : 1 on 10/08/2018 by Luis Alberto Fields MD Explanted:Qty : 1 on 10/15/2018 by Ovi Cohen MD Feeding Device N/A: Abdomen 01/18/2020 / / [id number] Set Screw Infinity Oc M6 [id number] - [id number] Explanted:Qty : 1 on 12/05/2024 by Mike Diaz MD at [facility] [place] Screw N/A: Neck [employer] SOFAMOR DANEK [id number] / / Procedures Procedure Name Priority Date/Time Associated Diagnosis Comments BASIC METABOLIC PANEL Routine 03/02/2025 10:26 AM CDT BASIC METABOLIC PANEL Routine 03/01/2025 10:27 AM CDT BASIC METABOLIC PANEL Routine 02/28/2025 10:26 AM CDT COMPREHENSIVE METABOLIC PANEL Routine 02/27/2025 10:28 AM CDT COMPREHENSIVE METABOLIC PANEL Routine 02/26/2025 10:27 AM CDT HEMOGLOBIN A1C Routine 02/26/2025 TELEMETRY REPORT 02/10/2025 2:12 PM CDT POC GLUCOSE Routine 02/08/2025 11:37 AM CDT HEMOGLOBIN AND HEMATOCRIT Routine 02/08/2025 10:16 AM CDT BASIC METABOLIC PANEL Routine 02/08/2025 10:16 AM CDT POC GLUCOSE Routine 02/08/2025 7:42 AM CDT CBC WITHOUT DIFFERENTIAL Routine 02/08/2025 6:22 AM CDT POC GLUCOSE Routine 02/07/2025 8:25 PM CDT POC GLUCOSE Routine 02/07/2025 4:45 PM CDT POC GLUCOSE Routine 02/07/2025 11:32 AM CDT POC GLUCOSE Stat 02/07/2025 9:11 AM CDT CBC WITHOUT DIFFERENTIAL Stat 02/07/2025 6:18 AM CDT BASIC METABOLIC PANEL Stat 02/07/2025 6:18 AM CDT POC GLUCOSE Stat 02/06/2025 8:31 PM CDT US RENAL AND BLADDER Stat 02/06/2025 12:32 PM CDT POC GLUCOSE Stat 02/06/2025 12:12 PM CDT POC GLUCOSE Stat 02/06/2025 8:06 AM CDT CBC WITHOUT DIFFERENTIAL Stat 02/06/2025 7:02 AM CDT BASIC METABOLIC PANEL Stat 02/06/2025 7:02 AM CDT CBC WITHOUT DIFFERENTIAL Stat 02/05/2025 5:00 PM CDT BASIC METABOLIC PANEL Stat 02/05/2025 5:00 PM CDT PTT Stat 02/05/2025 5:00 PM CDT PROTIME-INR Stat 02/05/2025 5:00 PM CDT CBC WITH DIFFERENTIAL Stat 02/05/2025 5:00 PM CDT COMPREHENSIVE METABOLIC PANEL Stat 02/05/2025 4:07 PM CDT TELEMETRY REPORT 12/21/2024 7:44 AM CDT INSERT MIDLINE IV Routine 12/13/2024 6:3 0 PM CDT MICROALBUMIN/CREATINI NE RATIO, RANDOM UR Routine 03/12/2024 8:59 AM CDT Diabetic polyneuropathy associated with type 2 diabetes mellitus ([facility]/HCC) LIPID PANEL Routine 11/11/2019 9:47 AM CDT COLONOSCOPY REPORT 06/26/2019 4: 22 PM 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 Blood us Abstract Provider CHEMISTRY ORDERABLES Final Res ult * COMPREHENSIVE METABOLIC PANEL (02/27/2025 10:28 AM CDT) Only the most recent of3 resultswithin the time period is included. Blood us Abstract Provider CHEMISTRY ORDERABLES Final Res ult * HEMOGLOBIN A1C (02/26/2025) ABSTRACTED HGB A1C 5.4 % Blood 02/26/2025 us Abstract Provider CHEMISTRY ORDERABLES Final Res ult * TELEMETRY REPORT (02/10/2025 2:12 PM CDT) Only the most recent of2 resultswithin the time period is included. us Provider Scanning ECG ORDERABLES Final Result * (ABNORMAL) POC GLUCOSE (02/08/2025 11:37 AM CDT) Only the most recent of9 resultswithin the time period is included. GLUCOSE POC 122(H) 74 - 99 mg/dL 02/08/2025 11:37 AM CDT [facility] SPECIMEN SOURCE, GLUCOSE POC Capillary 02/08/2025 11:37 AM CDT [facility] Blood, whole 02/08/2025 11:3 7 AM CDT 02/08/2025 11:45 AM CDT Arjun Olivares MD POINT OF CARE TESTI NG Final Result Performing Organization Address [facility] Co de Phone Number [facility] CLIA # [id number] [address] [address] [place] [address] * (ABNORMAL) HEMOGLOBIN AND HEMATOCRIT (02/08/2025 10:16 AM CDT) Pathologist [facility] HEMOGLOBIN 7.3(L) 12.0 - 16.0 g/dL 02/08/2025 10:36 AM CDT [facility] HEMATOCRIT 24.0(L) 36.0 - 46.0 % 02/08/2025 10:36 AM CDT [facility] Blood Venipuncture / Unknown 02/08/2025 10:16 AM CDT 02/08/2025 10:28 AM CDT Arjun Olivares MD HEMATOLOGY ORDERABL ES Final Result Performing Organization Address City/[facility]/ZIP Co de Phone Number [facility] CLIA # [id number] [address] [address] [place] [address] * (ABNORMAL) CBC WITHOUT DIFFERENTIAL (02/08/2025 6:22 AM CDT) Only the most recent of4 resultswithin the time period is included. Pathologist [facility] WBC 5.1 4.5 - 11.0 K/uL 02/08/2025 6:39 AM CDT [facility] RBC 2.30(L) 4.20 - 5.40 M/uL 02/08/2025 6:39 AM CDT [facility] HEMOGLOBIN 7.0(L) 12.0 - 16.0 g/dL 02/08/2025 6:39 AM T [facility] HEMATOCRIT 22.1(L) 36.0 - 46.0 % 02/08/2025 6:39 AM CDT [facility] MCV 96.1 84.0 - 103.0 fL 02/08/2025 6:39 AM CDT [facility] MCH 30.4 27.0 - 34.0 pg 02/08/2025 6:39 AM T [facility] MCHC 31.7 30.0 - 35.0 g/dL 02/08/2025 6:39 AM CDT [facility] PLATELETS 191 140 - 440 K/uL 02/08/2025 6:39 AM T [facility] MPV 9.0 8.9 - 12.8 fL 02/08/2025 6:39 AM [facility] RDW 14.6(H) 11.0 - 14.5 % 02/08/2025 6:39 AM [facility] RDW-STDEV 51.5 37.0 - 54.0 fL 02/08/2025 6:39 AM T [facility] Blood Venipuncture / Unknown 02/08/2025 6:22 AM CDT 02/08/2025 6:32 AM CDT us Jona Gaytan MD HEMATOLOGY ORDERABLES Final R esult [facility] CLIA # [id number] [address] [place] [address] * US RENAL AND BLADDER (02/06/2025 12:32 PM CDT) Anatomical Region Laterality Modality Abdomen Ultrasound 02/06/2025 12:3 2 PM CDT Impressions 02/06/2025 12:54 PM CDT IMPRESSION: 1. Kidneys are normal in size however appear abnormally echogenic suggesting underlying medical renal disease. 2. No hydronephrosis or perinephric fluid. Narrative 02/06/2025 12:54 PM CDT EXAM: US RENAL AND BLADDER DATE/TIME OF EXAM: 02/06/2025 12:32 PM REASON FOR EXAM: Acute Renal Failure DIAGNOSIS: Manic behavior (CMS/HCC); Bipolar disorder, current episode manic, severe, unspecified whether psychotic features (CMS/HCC); Suicidal ideation; Renal infarct COMPARISON: None. TECHNIQUE: Multiplanar real-time ultrasonography of the kidneys and bladder using nails-scale imaging, supplemented by color, power, and spectral Doppler as needed. FINDINGS: Right kidney: Normal in size and contour. Abnormal echogenic renal parenchyma. No hydronephrosis or perinephric fluid. Renal length = 10.0 cm. Left kidney: Normal in size and contour. Abnormal echogenic renal parenchyma. No hydronephrosis or perinephric fluid. Renal length = 11.6 cm. Vascularity: Blood flow is demonstrated to the kidneys by color Doppler interrogation. Urinary bladder: Visualized portions are normal. Additional comments: None. Procedure Note Moe Delatorre MD - 02/06/2025 EXAM: US RENAL AND BLADDER DATE/TIME OF EXAM: 02/06/2025 12:32 PM REASON FOR EXAM: Acute Renal Failure DIAGNOSIS: Manic behavior (CMS/HCC); Bipolar disorder, current episode manic, severe, unspecified whether psychotic features (CMS/HCC); Suicidal ideation; Renal infarct COMPARISON: None. TECHNIQUE: Multiplanar real-time ultrasonography of the kidneys and bladder using nails-scale imaging, supplemented by color, power, and spectral Doppler as needed. FINDINGS: Right kidney: Normal in size and contour. Abnormal echogenic renal parenchyma. No hydronephrosis or perinephric fluid. Renal length = 10.0 cm. Left kidney: Normal in size and contour. Abnormal echogenic renal parenchyma. No hydronephrosis or perinephric fluid. Renal length = 11.6 cm. Vascularity: Blood flow is demonstrated to the kidneys by color Doppler interrogation. Urinary bladder: Visualized portions are normal. Additional comments: None. IMPRESSION: 1. Kidneys are normal in size however appear abnormally echogenic suggesting underlying medical renal disease. 2. No hydronephrosis or perinephric fluid. us Arjun Olivares MD US ORDERABLES Fin al Result * (ABNORMAL) CBC WITH DIFFERENTIAL (02/05/2025 5:00 PM CDT) WBC 11.5(H) 4.5 - 11.0 K/uL 02/05/2025 5:23 PM CDT [facility] RBC 3.87(L) 4.20 - 5.40 M/uL 02/05/2025 5:23 PM CDT [facility] HEMOGLOBIN 11.6(L) 12.0 - 16.0 g/dL 02/05/2025 5:23 PM CDT [facility] HEMATOCRIT 36.3 36.0 - 46.0 % 02/05/2025 5:23 PM CDT [facility] MCV 93.8 84.0 - 103.0 fL 02/05/2025 5:23 PM CDT [facility] MCH 30.0 27.0 - 34.0 pg 02/05/2025 5:23 PM CDT [facility] MCHC 32.0 30.0 - 35.0 g/dL 02/05/2025 5:23 PM CDT [facility] PLATELETS 351 140 - 440 K/uL 02/05/2025 5:23 PM [facility] MPV 8.8(L) 8.9 - 12.8 fL 02/05/2025 5:23 PM CDT [facility] RDW 14.9(H) 11.0 - 14.5 % 02/05/2025 5:23 PM [facility] RDW-STDEV 51.4 37.0 - 54.0 fL 02/05/2025 5:23 PM CDT [facility] NEUTROPHILS 86(H) 42 - 75 % 02/05/2025 5:23 PM CDT [facility] LYMPHOCYTES 7(L) 24 - 44 % 02/05/2025 5:23 PM CDT [facility] MONOCYTES 6 2 - 10 % 02/05/2025 5:23 PM CDT [facility] EOSINOPHILS 0 0 - 7 % 02/05/2025 5:23 PM CDT [facility] BASOPHILS 0 0 - 1 % 02/05/2025 5:23 PM CDT [facility] IMMATURE GRANULOCYTES 1 0 - 2 % 02/05/2025 5:23 PM CDT [facility] NEUTROPHIL ABSOLUTE 9.91(H) 2.00 - 8.00 K/uL 02/05/2025 5:23 PM CDT [facility] LYMPHOCYTE ABSOLUTE 0.85(L) 1.20 - 4.00 K/uL 02/05/2025 5:23 PM CDT [facility] MONOCYTE ABSOLUTE 0.65(H) 0.10 - 0.60 K/uL 02/05/2025 5:23 PM CDT [facility] EOSINOPHIL ABSOLUTE 0.00 0.00 - 0.70 K/uL 02/05/2025 5:23 PM CDT [facility] BASOPHILS ABSOLUTE 0.03 0.00 - 0.20 K/uL 02/05/2025 5:23 PM CDT [facility] IMMATURE GRANULOCYTES ABSOLUTE 0.06 0.00 - 0.10 K/uL 02/05/2025 5:23 PM CDT [facility] SMEAR REVIEWED: NA - Not Applicable 02/05/2025 5:23 PM T [facility] Blood Venipuncture / Unknown 02/05/2025 5:00 PM CDT 02/05/2025 5:15 PM CDT us Garett Esteban MD HEMATOLOGY ORDERABLES Final Result [facility] CLIA # [id number] [address] [place] [address] * PTT (02/05/2025 5:00 PM CDT) [facility] PTT 27.6 24.8 - 37.2 seconds 02/05/2025 5:41 PM CDT [facility] Blood Venipuncture / Unknown 02/05/2025 5:00 PM CDT 02/05/2025 5:15 PM CDT [facility] - 02/05/2025 5:41 PM CDT Therapeutic Range: Hi-level PE/DVT heparin protocol 80.1 - 95.0 sec Lo-level PE/DVT heparin protocol 70.1 - 85.0 sec Cardiac Heparin Protocol 70.1 - 100.0 sec Garett Esteban MD HEMATOLOGY ORDERABLES Final Result [facility] CLIA # [id number] [facility] [address] * (ABNORMAL) PROTIME-INR (02/05/2025 5:00 PM CDT) [facility] PROTIME 15.2(H) 12.7 - 14.9 Seconds 02/05/2025 5:41 PM CDT [facility] INR 1.1 0.8 - 1.2 02/05/2025 5:41 PM CDT [facility] Blood Venipuncture / Unknown 02/05/2025 5:00 PM CDT 02/05/2025 5:15 PM CDT [facility] [email or web address] - 02/05/2025 5:41 PM CDT Expected Values for INR: DVT/PE Goal INR 2.5; range 2.0 - 3.0 Valve Replacement Tissue Goal INR 2.5; range 2.0 - 3.0 Valve Replacement Mechanical Goal INR 3.0; range 2.5 - 3.5 POST-DE Goal INR 2.5; range 2.0 - 3.0 or Goal INR 3.0; range 2.5 - 3.5 Atrial Fibrillation Goal INR 2.5; range 2.0 - 3.0 Ischemic Stroke Goal INR 2.5; range 2.0 - 3.0 Garett Esteban MD HEMATOLOGY ORDERABLES Final Result [facility] # [id number] [address] [facility] [place] [address] * INSERT MIDLINE IV (12/13/2024 6:30 PM CDT) Narrative Freda Pickering RN - 12/13/2024 6:30 PM CDT Freda Pickering RN 12/13/2024 6:48 PM 1615: Midline Insertion Procedure Note Procedure: Insertion of PowerGlide midline using sterile technique Indications: POOR VENOUS ACCESS Procedure Details Patient Identified with 2 identifiers. Informed patient of plan of care. Ultrasound assessment was performed to assess adequacy of vascular anatomy. RIGHT BASILIC vein was noted to compress without pulsatility, catheter vein occupancy noted to be <45%. Site scrubbed with chloraprep for 30 seconds and allowed to dry completely. Ultrasound guidance utilized to insert 18 g 10 cm PowerGlide catheter into the vein in sterile fashion x1 attempt(s). After placement verified, Secureport IV site adhesive applied, CHG-impregnated foam disc placed over insertion site, and sterile dressing applied after skin protectant allowed to dry completely. Midline flushed with 10mL sterile NS. Disinfectant cap placed on catheter hub. Right brachial artery nicked during procedure. Minimal hematoma noted using the US. Manual pressure held for approximately 5 mins. No signs of hematoma, ecchymosis, pain, or swelling at the site. Attending RN notified. Right arm circumference as follows: 1630: 25.5 cm No signs of hematoma, ecchymosis, pain, or swelling at the site. 1730: 25.5 cm No signs of hematoma, ecchymosis, pain, or swelling at the site. 1830: 25 cm No signs of hematoma, ecchymosis, pain, or swelling at the site. LOT#: [id number] Midline Catheter used: yes Flushes easily: yes Blood return: yes Patient tolerated without complaint. No vital sign changes. Midline brochure given to patient with teaching instruction. Patient / caregiver instructed to keep dressing clean, dry, and to cover while bathing/showering. Patient returned to previous position and bed height. Room cleaned of procedural trash and bedside table/tray/call light returned to pt access point. Midline ready for immediate use. RN updated on line placement. Flush with 10mL NS each shift and PRN. Line may be used for lab draws with physician approval. Flush line with 10 mL NS before each blood draw and 20 mL after. Change dressing and extension tubing every 7 days and PRN. Use same kits and procedure as central line dressing changes. NOT A CENTRAL LINE (Site not intended for long-term vesicant or hyperosmolar infusions) Indicated for up to 29 days. Power injection capable to a max pressure of 325 psi at a max rate of 5mL/second For questions or concerns, please place IP consult or call Vascular Access Team ([phone]) Unruly Arreola MD IV THERAPY ORDERABLES Final Result * (ABNORMAL) MICROALBUMIN/CREATININE RATIO, RANDOM UR (03/12/2024 8:59 AM CDT) Creatinine, Urine 141 20 - 275 mg/dL [facility] MICROALBUMIN, URINE 175.0 See Note: mg/dL [facility] Comment: Reference Range: Reference Range Not established MICROALBUMIN/CREAT RATIO, UR 1241(H) <30 mg/g creat [facility] Comment: The ADA defines abnormalities in albumin excretion as follows: Albuminuria Category Result (mg/g creatinine) Normal to Mildly increased <30 Moderately increased 30-299 Severely increased > OR = 300 The ADA recommends that at least two of three specimens collected within a 3-6 month period be abnormal before considering a patient to be within a diagnostic category. Test Performed at: [facility] [employer] [address] [phone] Diego Lacy MD Urine URINE SPECIMEN OBTAINED BY CLEAN CATCH PROCEDURE / Unknown 03/12/2024 8:59 AM CDT 03/13/2024 2:39 AM CDT Monika Simpson MD URINE ORDERABLES Final Res ult [facility] [phone] [facility] [address] [address] [phone] * (ABNORMAL) LIPID PANEL (11/11/2019 9:47 AM CDT) [facility] CHOLESTEROL 133 <200 mg/dL 11/12/2019 12:47 AM CDT [facility] TRIGLYCERIDE 165(H) <150 mg/dL 11/12/2019 12:47 AM CDT [facility] HDL 45 40 - 59 mg/dL 11/12/2019 12:47 AM CDT [facility] LDL CALCULATED 55 <100 mg/dL 11/12/2019 12:47 AM CDT [facility] NON-HDL CHOLESTEROL 88 <130 mg/dL 11/12/2019 12:47 AM T [facility] Blood Venipuncture / Unknown 11/11/2019 9:47 AM CDT 11/11/2019 9:52 AM CDT Narrative [email or web address] - 11/12/2019 12:47 AM CDT Fasting TOTAL CHOLESTEROL mg/dL Desirable <200 Borderline high 200-239 High >=240 TRIGLYCERIDES mg/dL Normal <150 Borderline high 150-199 High 200-499 Very high >=500 HDL CHOLESTEROL mg/dL Low <40 Normal 40-59 Desirable >=60 NON HDL CHOLESTEROL mg/dL Optimal <130 Near Optimal 130-159 Borderline High 160-189 Very High >=190 CALCULATED LDL mg/dL LDL <70, OPTIMAL if have Atherosclerotic cardiovascular disease (ASCVD) or intermediate or higher (>7.5%) 10 year risk of ASCVD including most adults with diabetes. LDL <100, Optimal in adult patients with low (<7.5%) 10 year ASCVD risk LDL 100-160, Suboptimal LDL >160, High LDL >190, Very high ATPIII Guidelines Reference Ranges for Lipid Panels (NCEP/AMA) . Rubia Macias MD CHEMISTRY ORDERABLES Final R esult [facility] CLIA# [id number] [address] [place] [address] [facility] CLIA# [id number] [address] [place] [address] * COLONOSCOPY REPORT (06/26/2019 4:22 PM OIL OPERATOR) Adryan Ibarra MD GI PROCEDURE ORDERABL ES Final Result from Last 3 Months or Most Recently Relevant to Health Maintenance Insurance [place]ICAID [place] * Guarantor: MELISSA TATE Account Type Relation to Patient Date of Phone Billing Address Personal/Family [address] [place] [address] RX INFOCROSSING Medicaid RX [employer] (INTERNAL) [facility] Internal Plans MEDICAID [place] Advance Directives For more information, please contact: [phone] * Full Code (Latest Code Status on File) Date Activated Date Inactivated Comments 02/05/2025 4:26 PM 02/08/2025 8:00 PM * Full Code Date Activated Date Inactivated Comments 12/02/2024 2:53 PM 12/14/2024 6:12 PM * Default Full Code - Needs Discussion Date Activated Date Inactivated Comments 11/30/2024 11:41 PM 12/02/2024 2:53 PM * Full Code Date Activated Date Inactivated Comments 05/01/2024 6:48 PM 05/03/2024 2:01 PM * Full Code Date Activated Date Inactivated Comments 02/05/2024 11:29 PM 02/11/2024 7:10 PM Care Teams Loss Prevention Supervisor Relationship Specialty Start Date End Date Monika Simpson MD [address] [place] [phone] PCP - General Family Practice 03/12/24
--- OUTSIDE RECORDS SUMMARY | 2025-03-13 11:13 | XMS_ITS | Encounter Summary ---
Author Organization [facility] Address [address] [place] [address] Care Team Providers Care Mountain Services Manager Name Role Phone Kentrell Herring MD Primary Care Provider + Encounter Details Date Type Department Care Team (Latest Contact Info) Description 02/23/2003 Outpatient Historical [facility] Home Team Therapy AMBULANCE, [facility] OBSERVATION-ACCIDENT NEC (Primary Dx) Social History Tobacco Use Types Packs/Day Years Used Date Smoking Tobacco: Never Assessed Comments Unknown Sex and Gender Information Value Date Recorded Sex Assigned at Not on file 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
--- OUTSIDE RECORDS SUMMARY | 2025-03-13 11:13 | XMS_ITS | Encounter Summary ---
Author Organization [facility] Address [address] [place] [address] Care Team Providers Care Brushing Machine Operator Name Role Phone Monika Simpson MD Primary Care Provider [phone]- [phone] Reason for Visit * Auth/Cert (Routine) Specialty Diagnoses / Procedures Referred By Contac t Referred To Contact Perioperative Diagnoses Abscess of bursa of right knee Hx of below knee amputation, right (CMS/HCC) Abscess of bursa of right knee [M71.061] Hx of below knee amputation, right (CMS/HCC) [Z89.511] Procedures [place] I&D DEEP ABSC BURSA/HEMATOMA THIGH/KNEE REGION KNEE IRRIGATION AND DEBRIDEMENT OF PRE-PATELLAR BURSA WITH SUTURE REMOVAL RIGHT KNEE 30 MIN SUPINE En Lancaster MD [address] [place] [phone] Phone: tel: fax: Operating Room [address] [place] [address] Phone: tel: fax: Referral ID Status Reason Start Date Expiration Date Visits Re quested Visits Authorized [id number] 1 1 Encounter Details Date Type Department Care Team (Latest Contact Info) Description 11/30/2024 Hospital Encounter Operating Room [address] [place] [address] En Lancaster MD [address] [place] [phone] Abscess of bursa of right knee Social History Tobacco Use Types Packs/Day Years Used Date Smoking Tobacco: Former Cigarettes Q uit: 08/19/2012 Smokeless Tobacco: Never Alcohol Use Standard Drinks/Week Comments No 0 (1 standard drink = 0.6 oz pur e alcohol) Comments No Sex and Gender Information Value Date Recorded Sex Assigned at Not on file 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 When patient did not arrive we spoke with her since we were unable to reach her. He stated she was admitted to [facility]. We made a call to them and they were not aware of her surgery today and stated that a community case manager would arrive around 0800 and would be getting back to us about surgery. I had not heard any information about this by 0840 I called and spoke with Meredith in case management at [facility] who returned a call to me after speaking with her attending physician who says the patient will not be coming today for surgery and if the surgery is necessary they will call us to reschedule. Azalia Foley and OR notified. documented in this encounter Plan of Treatment Not on file documented as of this encounter Visit Diagnoses Not on filedocumented in this encounter Additional Health Concerns Infection Onset Date Last Indicated Resolved Time R/O Meningitis 11/30/2024 11/30/2024 11/30/2024 10 :01 PM CDT Assessment Noted Time PHQ-9 Depression Total Score: 2 03/12/20 8:33 AM CDT documented as of this encounter Care Teams Brushing Machine Operator Relationship Specialty Start Date End Date Monika Simpson MD [address] [place] [phone] PCP - General Family Practice 03/12/24 documented as of this encounter
--- OUTSIDE RECORDS SUMMARY | 2025-03-13 11:13 | XMS_ITS | Encounter Summary ---
Author Organization [facility] Address 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
--- OUTSIDE RECORDS SUMMARY | 2025-03-13 11:13 | XMS_ITS | Encounter Summary ---
Author Organization [facility] Address [address] [place] [address] Care Team Providers Care Associate Sales Name Role Phone Monika Simpson MD Primary Care Provider +1- [phone] Reason for Visit * Reason Comments Needs Appointment Encounter Details Date Type Department Care Team (Late st Contact Info) Description 03/10/2025 Telephone [facility] [place] [address] [address] Monika Simpson MD [address] [address] Needs Appointment Social History Tobacco Use Types Packs/Day Years Used Date Smoking Tobacco: Former Cigarettes Q uit: 08/19/2012 Smokeless Tobacco: Never Alcohol Use Standard Drinks/Week Comments No 0 (1 standard drink = 0.6 oz pur e alcohol) Comments No Sex and Gender Information Value Date Recorded Sex Assigned at Not on file 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 Records in media. * Telephone Encounter - Lelia Alvarez - 03/11/2025 5:31 PM CDT Left V.M. for patient to call office and schedule [facility] HFU appointment for week of March 15-March 19. * Telephone Encounter - Lelia Alvarez - 03/11/2025 5:27 PM CDT Give her first available next week, per Dr. Simpson * Telephone Encounter - Lelia Alvarez - 03/10/2025 3:27 PM CDT Sent EPIC message to Dr. Simpson and Anai Castellanos to see if able to do HFU on Thursday 03/15 * Telephone Encounter - Tish Baum - 03/10/2025 1:34 PM CDT Copied from [facility] #[id number]. Topic: CPA Information Request - Appointment/Location Information >> Mar 10, 2025 1:33 PM Tish Laird wrote: Caller is requesting the following information: Other Caller Notes (Not Required): The patient called to schedule a hospital follow up appointment. I made a scheduling error. I called the patient and asked her to call us back to reschedule it. She was discharged from [facility] on 03/02/2025. The soonest she can come in is 03/12/2025. Please schedule the hospital follow up and advise of the SONIDO to be signed. Ask if caller would like to also receive a link in [facility] to view the details for the upcoming appointments. Would caller like [facility] message with link to appointment details? No Patient Access Instructions 1. Link appointment in attachment section below. 2. Select Resolve Reason and Click Close CRM. documented in this encounter Plan of Treatment Not on file documented as of this encounter Visit Diagnoses Not on filedocumented in this encounter Additional Health Concerns Assessment Noted Time PHQ-9 Depression Total Score: 2 03/12/20 8:33 AM CDT documented as of this encounter Care Teams Associate Sales Relationship Specialty Start Date End Date Monika Simpson MD [address] [place] [phone] PCP - General Family Practice 03/12/24 documented as of this encounter
--- OUTSIDE RECORDS SUMMARY | 2025-03-13 11:13 | XMS_ITS | Clinical Summary ---
Author Organization [facility] Address [address] [place] [address] Phone Care Team Providers Care Process Trainer Name Role Phone Manjarrez Imelda Trinh [facility] Primary Care Provider [phone] Allergies Active Allergy Reactions Criticality Noted Date [...] Recorded Patient Health Questionnaire-2 Score 2 11/08/2023 [facility] - Mental Health Answer Date [...] 90 01/20/2024 10:47 AM CDT Temperature 36.2 C (97.1 F) 01/20/2024 9:00 AM CDT Respiratory Rate 16 01/20/2024 10:4 [...] Date Last Done Comments CT Colonography 1978 Creatinine Level 1978 Diabetes: Hemoglobin A1C 1978 FIT-DNA 1978 FIT 1978 FOBT 1978 Potassium Level 1978 Sigmoidoscopy 1978 MMR Vaccines (1 of 1 - Standard series) 1979 Diabetes: Foot Exam 1988 Diabetes: Retinopathy Screening 1988 Varicella Vaccines (1 of 2 - 13+ 2-dose series) 1991 Depression Screening 1996 Social Drivers of Health (SDoH) 1996 Hepatitis B Vaccines (1 of 3 - 19+ 3-dose series) 1997 Pap Smear 1999 Cervical Cancer Screening 2008 HPV/Cotest 2008 Mammogram 2018 DTaP,Tdap,and Td Vaccines (2 - Td or Tdap) 11/18/2021 10/21/2021 COVID-19 Vaccine (1 - 2023-2 5 season) 2024 Influenza Vaccine (#1) 2025 , 07/02/2019 Pneumococcal Vaccine: 50+ Years (2 of 2 - PCV) 2028 07/02/2019 Zoster Vaccines (1 of 2) 2028 Colonoscopy 06/26/2029 06/26/2019 Colorectal Cancer Screening 06/26/2029 RSV Vaccines (1 - 1-dose 75+ series) 2053 Pneumococcal Vaccine Aged Out 07/02/2019 No long er eligible based on patient's [...] patient's age to complete this topic Meningococcal B Vaccine Aged Out No l onger eligible based on patient's age to complete this topic Meningococcal Vaccine Aged Out No saloni avi eligible based on patient's age to complete this topic Rotavirus Vaccines Aged Out No longer eligible based on patient's age to complete this topic Insurance [facility] Care Teams Process Trainer Relationship Specialty Start Date End Date Imelda Manjarrez FNP [address] [facility] [place] [address] PCP - General Family Medicine 11/08/23
--- OUTSIDE RECORDS SUMMARY | 2025-03-13 11:13 | XMS_ITS | Encounter Summary ---
Author Organization [facility] Address [address] [place] [address] Care Team Providers Care Customer Energy Specialist Name Role Phone Monika Simpson MD Primary Care Provider [phone] Encounter Details Date Type Department Care Team (Late st Contact Info) Description 03/11/2025 Orders Only [facility] Health Information Management [place] [address] [place] [phone] Provider, Abstract NO ADDRESS ON FILE Social History Tobacco Use Types Packs/Day Years Used Date Smoking Tobacco: Former Cigarettes Q uit: 08/19/2012 Smokeless Tobacco: Never Alcohol Use Standard Drinks/Week Comments No 0 (1 standard drink = 0.6 oz pur e alcohol) Comments No Sex and Gender Information Value Date Recorded Sex Assigned at Not on file 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 Gender Identity Not on file Sexual Orientation [...] METABOLIC PANEL Routine 02/26/2025 10:27 AM CDT documented in this encounter Results * BASIC METABOLIC PANEL (03/02/2025 10:26 AM CDT) Blood us Abstract Provider CHEMISTRY ORDERABLES Final Res ult * BASIC METABOLIC PANEL (03/01/2025 10:27 AM CDT) Blood us Abstract Provider CHEMISTRY ORDERABLES Final Res ult * BASIC METABOLIC PANEL (02/28/2025 10:26 AM CDT) Blood us Abstract Provider CHEMISTRY ORDERABLES Final Res ult * COMPREHENSIVE METABOLIC PANEL (02/27/2025 10:28 AM CDT) Blood us Abstract Provider CHEMISTRY ORDERABLES Final Res ult * COMPREHENSIVE METABOLIC PANEL (02/26/2025 10:27 AM CDT) Blood us Abstract Provider CHEMISTRY ORDERABLES Final Res ult documented in this encounter Visit Diagnoses Not on filedocumented in this encounter Additional Health Concerns Assessment Noted Time PHQ-9 Depression Total Score: 2 03/12/20 8:33 AM CDT documented as of this encounter Care Teams Customer Energy Specialist Relationship Specialty Start Date End Date Monika Simpson MD [address] [place] [phone] PCP - General Family Practice 03/12/24 documented as of this encounter
--- OUTSIDE RECORDS SUMMARY | 2025-03-13 11:13 | XMS_ITS | Encounter Summary ---
Author Organization [facility] Address [address] [place] [address] Care Team Providers Care Tool And Die Technician Name Role Phone Kentrell Herring MD Primary Care Provider + Reason for Referral * Outpatient Services (Routine) - Closed Specialty Diagnoses / Procedures Referred By Contac t Referred To Contact Radiology Diagnoses Unspecified symptom associated with female genital organs Type II or unspecified type diabetes mellitus without mention of complication, not stated as uncontrolled Hemorrhage of rectum and anus Other malaise and fatigue Procedures US PELVIS COMPLETE Awilda Trotter NP [address] [place] [address] Phone: tel: fax: [facility] [address] [place] [address] Phone: tel: fax: Referral ID Status Reason Start Date Expiration Date V isits Requested Visits Authorized [id number] Closed F [facility] TO SCHEDULE (SGF) 05/28/2012 05/28/2013 1 1 Encounter Details Date Type Department Care Team (Latest Contact Info) Description 05/28/2012 Ancillary Orders [facility] Pre-Registration [place] CALL TO MAKE APPOINTMENT ONLY [address] [place] [address] Awilda Trotter NP [address] [place] [phone] Unspecified symptom associated with female genital organs; Type II or unspecified type diabetes mellitus without mention of complication, not stated as uncontrolled (CMS/HCC); Hemorrhage of rectum and anus; Other malaise and fatigue Social History Tobacco Use Types Packs/Day Years Used Date Smoking Tobacco: Never Assessed Comments Unknown Sex and Gender Information Value Date Recorded Sex Assigned at Not on file Legal Sex Female 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 REASON FOR EXAM: Unspecified symptom associated with female genital organs. COMPARISON: None . TECHNIQUE: Multiplanar real-time ultrasonography of the pelvis using nails-scale imaging, supplemented by color Doppler as needed. . FINDINGS: . Uterus: The uterus measures 8.0 x 3.4 x 5.2 cm. The endometrial thickness measures 1-2 mm. No uterine mass. . Right ovary/adnexa: The ovary measures 2.6 x 3.6 x 1.8 cm. No adnexal mass. . Left ovary/adnexa: The ovary measures 2.6 x 2.4 x 2.6 cm. No adnexal mass. . Bladder: Normal . Peritoneum: No fluid in the cul-de-sac. . +++++++++++++++++++++ IMPRESSION The patient reports pain during palpation of the ovaries, but no adnexal pathology is identified. No free fluid. Procedure Note Ovi Cohen MD - 05/30/2012 US PELVIS COMPLETE, May 30, 2012 11:55:00 AM . REASON FOR EXAM: Unspecified symptom associated with female genital organs. COMPARISON: None . TECHNIQUE: Multiplanar real-time ultrasonography of the pelvis using nails-scale imaging, supplemented by color Doppler as needed. . FINDINGS: . Uterus: The uterus measures 8.0 x 3.4 x 5.2 cm. The endometrial thickness measures 1-2 mm. No uterine mass. . Right ovary/adnexa: The ovary measures 2.6 x 3.6 x 1.8 cm. No adnexal mass. . Left ovary/adnexa: The ovary measures 2.6 x 2.4 x 2.6 cm. No adnexal mass. . Bladder: Normal . Peritoneum: No fluid in the cul-de-sac. . +++++++++++++++++++++ IMPRESSION The patient reports pain during palpation of the ovaries, but no adnexal pathology is identified. No free fluid. Awilda Trotter NP US ORDERABLES Final Re sult documented in this encounter Visit Diagnoses Diagnosis Unspecified symptom associated with female genital organs Type II or unspecified type diabetes mellitus without mention of complication, not stated as uncontrolled Hemorrhage of rectum and anus Other malaise and fatigue Unspecified symptom associated with female genital organs Type II or unspecified type diabetes mellitus without mention of complication, not stated as uncontrolled Hemorrhage of rectum and anus Other malaise and fatigue documented in this encounter Care Teams Tool And Die Technician Relationship Specialty Start Date End Date Kentrell Herring MD [address] [place] [address] PCP - General Family Practice 09/19/18 documented as of this encounter
--- OUTSIDE RECORDS SUMMARY | 2025-03-13 11:13 | XMS_ITS | Encounter Summary ---
Author Organization [facility] Address [address] [place] [address] Care Team Providers Care Traffic Controller Cable Name Role Phone Monika Simpson MD Primary Care Provider [phone] Encounter Details Date Type Department Care Team (Late st Contact Info) Description 03/11/[address] [address] Monika Simpson MD [address] [address] Social History Tobacco Use Types Packs/Day Years Used Date Smoking Tobacco: Former Cigarettes Q uit: 08/19/2012 Smokeless Tobacco: Never Alcohol Use Standard Drinks/Week Comments No 0 (1 standard drink = 0.6 oz pur e alcohol) Comments No Sex and Gender Information Value Date Recorded Sex Assigned at Not on file Legal Sex Female 2:06 AM CARROT HARVESTER Gender Identity Not on file Sexual Orientation Not on file documented as of this encounter Plan of Treatment Not on file documented as of this encounter Procedures Procedure Name Priority Date/Time Associated Diagnosis Comments HEMOGLOBIN A1C Routine 02/26/2025 documented in this encounter Results * HEMOGLOBIN A1C (02/26/2025) ABSTRACTED HGB A1C 5.4 % Blood 02/26/2025 us Abstract Provider CHEMISTRY ORDERABLES Final Res ult documented in this encounter Visit Diagnoses Not on filedocumented in this encounter Additional Health Concerns Assessment Noted Time PHQ-9 Depression Total Score: 2 03/12/20 24 8:33 AM CDT documented as of this encounter Care Teams Traffic Controller Cable Relationship Specialty Start Date End Date Monika Simpson MD [address] [address] PCP - General Family Practice 03/12/24 documented as of this encounter
--- OUTSIDE RECORDS SUMMARY | 2025-03-13 11:13 | XMS_ITS | Encounter Summary ---
Author Organization [facility] Address [address] [place] [address] Care Team Providers Care Medical Insurance Clerk Name Role Phone Kentrell Herring MD Primary Care Provider + Encounter Details Date Type Department Care Team (Late st Contact Info) Description 11/27/2007 Outpatient Historical [facility] Aman Allen MD [address] [place] [address] Charles Cantu Jr., MD [address] [place] [address] Social History Tobacco Use Types Packs/Day Years Used Date Smoking Tobacco: Never Assessed Comments Unknown Sex and Gender Information Value Date Recorded Sex Assigned at Not on file 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 Sex 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 DIRECTOR Gender Identity Not on file Sexual Orientation Not on file documented as of this encounter Plan of Treatment Not on file documented as of this encounter Procedures Procedure Name Priority Date/Time Associated Diagnosis Comments US PELVIS COMPLETE Routine 11/27/2007 9: 08 AM CDT BLOOD BANK DRAW ONLY Stat 11/27/2007 8:12 AM CDT HEPATITIS B SURFACE ANTIGEN Stat 11/27/2007 8:12 AM CDT HEPATITIS C ANTIBODY Stat 11/27/2007 8:12 AM CDT RPR Stat 11/27/2007 8:12 AM CDT HCG QUANTITATIVE, BLOOD Stat 11/27/2007 8:00 AM CDT DRUG SCREEN, URINE Stat 11/27/2007 7: 12 AM CDT documented in this encounter Results * US PELVIS COMPLETE (11/27/2007 9:08 AM CDT) Anatomical Region Laterality Modality Pelvis Other 11/27/2007 9:08 AM CDT Narrative 11/28/2007 1:10 PM CDT Finalized by interface cleanup utility. No report expected. Procedure Note 09/20/2008 Finalized by interface cleanup utility. No report expected. us Charles Cantu Jr., MD US ORDERABLES Final Re sult * BLOOD BANK DRAW ONLY (11/27/2007 8:12 AM CDT) Blood specimen (specimen) 11/27/2007 8:12 AM CDT 11/27/2007 8:20 AM CDT Aman Allen MD BLOOD BANK ORDERABLES Final Res ult INTERFACE SYSTEM Refer to clinic/hospital department * HEPATITIS C ANTIBODY (11/27/2007 8:12 AM CDT) HEPATITIS C AB Negative Negative [facility] Comment: HCV antibody testing is performed by E.I.A. methodology. CDC recommends positive HCV antibody tests have confirmation testing. Low positive results should be confirmed with RIBA. This will determine if results are false positive. If a high positive result is obtained an HCV RNA may be run. The RNA test confirms infection and the level of the RNA, to some extent, helps guide treatment. The same specimen can be used for RIBA and will be held for 7 days. Please contact the Immunology lab if RIBA testing is desired. However, if HCV RNA testing is desired, a new specimen must be collected. Blood should be collected in SST (serum) or EDTA (plasma) separation tubes. Separate serum or plasma from whole blood within 6 hours of collection. Serum or plasma can be transported at refrigerated temperature or frozen and transported. Blood specimen (specimen) 11/27/2007 8:12 AM CDT 11/27/2007 8:12 AM CDT us Aman Allen MD CHEMISTRY ORDERABLES Final Resu lt Performing Organization Address [facility] Phone Number [facility] [address] [place] [address] * HEPATITIS B SURFACE ANTIGEN (11/27/2007 8:12 AM CDT) HEPATITIS B SURFACE AG Negative Negative [facility] Blood specimen (specimen) 11/27/2007 8:12 AM CDT 11/27/2007 8:12 AM CDT Aman Allen MD CHEMISTRY ORDERABLES Final Resu lt Performing Organization Address [facility] Phone Number [facility] [address] [place] [address] * RPR (11/27/2007 8:12 AM CDT) Pathologist [facility] RPR Non-Reactiv e Non-Reacti ve [facility] Blood specimen (specimen) 11/27/2007 8:12 AM CDT 11/27/2007 8:12 AM CDT us Aman Allen MD CHEMISTRY ORDERABLES Final Resu lt Performing Organization Address [facility] Phone Number [facility] [address] [place] [address] * HCG QUANTITATIVE, BLOOD (11/27/2007 8:00 AM CDT) CHORIONIC GONADOTROPIN, TOTAL <2.0 0.0 - 10.0 mlU/ML [facility] Comment: Total HCG levels between 10 mIU/mL and 25 mIU/mL may be indicative of early but need to be correlated with other clinical findings. HCG ranges during normal , as reported by the public safety officer, are summarized as follows: Gestational Age Expected hCG Values (mIU/ml) 0.2-1 Weeks 5 - 50 1-2 Weeks 50 - 500 2-3 Weeks 100 - 5,000 3-4 Weeks 1,000 - 50,000 5-6 Weeks 10,000 - 100,000 6-8 Weeks 15,000 - 200,000 2-3 Months 10,000 - 100,000 Blood specimen (specimen) 11/27/2007 8:00 AM CDT 11/27/2007 8:26 AM CDT us Aman Allen MD CHEMISTRY ORDERABLES Final Resu lt [facility] [address] [place] [address] * DRUG SCREEN, URINE (11/27/2007 7:12 AM CDT) OPIATE QUAL, URINE Drug Negative Drug Negative [facility] PCP QUAL, URINE Drug Negative Drug Negative [facility] COCAINE QUAL URINE Drug Negative Drug Negative [facility] CANNABINOIDS QUAL, URINE Drug Negative Drug Negative [facility] AMPHETAMINE QUAL, URINE Drug Negative Drug Negative [facility] Comment: All components of the Urine Drug Screen are performed by Immunoassay. Confirmation must be requested by physician before being sent out. NOTE: The ingestion of natural herbal and plant products containing Ephedra/Ephedra metabolites can produce in urine one or more substances capable of cross reacting with amphetamine/methamphetamine immunoassays. This test provides a preliminary result only. A more specific alternative chemical method must be used to obtain a confirmed analytical result. Drug Screening Cutoff Amphetamine/Methamphetamine 1000 ng/ml Barbiturates 200 ng/ml Benzodiazepines 200 ng/ml Cannabinoid 50 ng/ml Cocaine Metabolite 300 ng/ml Opiates 300 ng/ml PCP 25 ng/ml Immunoassay Screening results above cutoff value are reported as Positive. BENZODIAZEPINE QUAL, URINE Drug Negative Drug Negative [facility] BARBITURATE QUAL, URINE Drug Negative Drug Negative [facility] 11/27/2007 7:12 AM CDT 11/27/2007 7:12 AM CDT us Aman Allen MD URINE ORDERABLES Final Result Performing Organization Address City/State/[facility] Co de Phone Number [facility] [address] [place] [address] documented in this encounter Visit Diagnoses Not on filedocumented in this encounter Care Teams Medical Insurance Clerk Relationship Specialty Start Date End Date Kentrell Herring MD [address] [place] [address] PCP - General Family Practice 09/19/18 documented as of this encounter
--- OUTSIDE RECORDS SUMMARY | 2025-03-13 11:13 | XMS_ITS | Clinical Summary ---
Author Organization [facility] Address [address] [place] [address] Care Team Providers Care Behavioral Health Care Manager Name Role Phone Kentrell Herring MD Primary Care Provider [phone] Social History Tobacco Use Types Packs/Day Years Used Date Smoking Tobacco: Never Assessed Comments Unknown Sex and Gender Information Value Date Recorded Sex Assigned at Not on file Legal Sex Female 8:55 AM EST Gender Identity Not on file Sexual Orientation Not on file Plan of Treatment Health Maintenance Due Date Last Done Comments Hepatitis B Vaccine (1 of 3 - 19+ 3-dose series) 03/28 Pneumococcal Vaccine: Peds ( 0 to 5 Years) and At-Risk Patients (6 to 49 Years) (2 of 2 - PCV) 07/02/2020 07/02/2019 Diabetes: Hemoglobin A1C 02/10/2024 11/11/2019 Diabetes: Ophthalmology Exam 02/10/2024 Diabetes: Pedal Pulse Checked 02/10/2024 Diabetes: Sensory Foot Exam 02/10/2024 Diabetes: Visual Foot Exam 02/10/2024 Influenza Vaccine (#1) 2025 07/02/2019 Pneumococcal Vaccine: 50+ Years Discontinued 9 Insurance Medicaid [place] ([id number]) Care Teams Behavioral Health Care Manager Relationship Specialty Start Date End Date Kentrell Herring MD [address] [place] [phone] PCP - General Family Medicine 09/29/18
--- OUTSIDE RECORDS SUMMARY | 2025-03-13 11:13 | XMS_ITS | Encounter Summary ---
Author Organization [facility] Address [address] [place] [address] Care Team Providers Care Media Account Executive Name Role Phone Kentrell Herring MD Primary Care Provider + Encounter Details Date Type Department Care Team (Latest Contact Info) Description 04/10/2003 Outpatient Historical [facility] (Primary Dx) Social History Tobacco Use Types Packs/Day Years Used Date Smoking Tobacco: Never Assessed Comments Unknown Sex and Gender Information Value Date Recorded Sex Assigned at Not on file Legal Sex Female 3:09 AM EDGE BEADER Gender Identity Not on file Sexual Orientation Not on file documented as of this encounter Plan of Treatment Not on file documented as of this encounter Visit Diagnoses Diagnosis Type II or unspecified type diabetes mellitus with other specified manifestations, not stated as uncontrolled- Primary documented in this encounter Care Teams Media Account Executive Relationship Specialty Start Date End Date Kentrell Herring MD [address] [place] [address] PCP - General Family Practice 09/19/18 documented as of this encounter
--- OUTSIDE RECORDS SUMMARY | 2025-03-13 11:13 | XMS_ITS | Encounter Summary ---
Author Organization [facility] Address [address] [place] [address] Care Team Providers Care Lending Activities Supervisor Name Role Phone Kentrell Herring MD Primary Care Provider + Encounter Details Date Type Department Care Team (Late st Contact Info) Description 12/01/2007 Outpatient Historical [facility] Pepe Jr., Charles Clancy MD [address] [place] [id number] Social History Tobacco Use Types Packs/Day Years Used Date Smoking Tobacco: Never Assessed Comments Unknown Sex and Gender Information Value Date Recorded Sex Assigned at Not on file Legal Sex Female 3:09 AM 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
--- OUTSIDE RECORDS SUMMARY | 2025-03-13 11:13 | XMS_ITS | Clinical Summary ---
Author Organization [facility] Address [address] [place] [address] Care Team Providers Care Subway Train Driver Name Role Phone Kentrell Herring MD Primary Care Provider + Allergies Active Allergy Reactions Criticality Noted Date Comments Dhe Palpitations Low 09/22/2018 Latex Other (See Comments) 01/16/2019 Skin reaction Morphine Other (See Comments) Medium 07/30/2017 Pt states, it makes me stop breathing Unclassified Drug Anaphylaxis High 07/30/2017 Medications blood sugar diagnostic Strip Use as directed to test blood sugar levels before meals. . 100 Each 3 07/31/2019 5:32 PM [employer] 9 Active insulin lispro (HumaLOG) 100 unit/mL vial Less than or equal to 140 = no correctional insulin 141 - 180 = give and/or add 1 unit 181 - 220 = give and/or add 3 units 221 - 280 = give and/or add 5 units 281 - 340 = give and/or add 7 units Greater than 340 give and/or = add 8 units 10 mL 3 07/31/2019 5:32 PM [employer] 9 Active Insulin [place], Disposable, 31 gauge x 5/16 Needle Use as directed to administer insulin. 100 Each 07/31/2019 5:32 PM [employer]TE[employer] 9 Active aspirin (ECOTRIN EC) 81 mg Tablet, Delayed Release (E.C.) Take 1 Tablet (81 mg) by mouth daily. 30 Tablet 3 9 Active clopidogreL (PLAVIX) 75 mg Tablet Take 1 Tablet (75 mg) by mouth daily. 30 Tablet 3 07/31/2019 5:32 PM [facility] 9 Active FLUoxetine (PROzac) 20 mg capsule Take 1 Capsule (20 mg) by mouth daily. 30 Capsule 3 07/31/2019 5:32 PM [facility] 9 Active hydrOXYzine HCL (ATARAX) 50 mg tablet Take 1 Tablet (50 mg) by mouth every 6 hours as needed for Anxiety, Insomnia, Nausea/Emesis or pain. 90 Tablet 1 07/31/2019 5:32 PM [employer] 9 Active ferrous sulfate 325 mg (65 mg iron) tablet Take 1 Tablet (325 mg) by mouth 2 times daily. 30 Tablet 3 07/31/2019 5:32 PM [facility] 9 Active ascorbic acid, vitamin C, (VITAMIN C) 500 mg tablet Take 1 Tablet (500 mg) by mouth daily. 30 Tablet 3 9 Active walker with wheels Face to Face completed within 6 months: yes Length of Need: 99 months 1 Each 9 Active Insulin Syringe-Needle U-100 (BD Insulin Syringe Ultra-Fine) 1 mL 31 gauge x 5/16 Syringe Use as directed to administer insulin. 100 Each 07/31/2019 5:32 PM [facility] 9 Active Blood-Glucose Meter Use as directed to check blood glucose levels 1 Each 07/31/2019 5:32 PM [facility] 9 Active lancets 30 gauge To be used to check blood glucose levels 100 Each 07/31/2019 5:32 PM [facility] 9 Active carvediloL (COREG) 3.125 mg tablet Take 1 Tablet (3.125 mg) by mouth every 12 hours. 60 Tablet 1 0 Active gabapentin (NEURONTIN) 300 mg capsule Take 1 Capsule (300 mg) by mouth 3 times daily. 1 Capsule 0 Active metoclopramide HCl (REGLAN) 10 mg tablet Take 1 Tablet (10 mg) by mouth every 6 hours. 120 Tablet 3 11/17/2019 4:01 PM CDT 0 Active isosorbide mononitrate (IMDUR) 30 mg Extended Release 24 hour tablet Take 1 Tablet (30 mg) by mouth daily. 90 Tablet 1 11/17/2019 4:01 PM CDT 0 Active naloxone (NARCAN) 4 mg/spray [place], Non-Aerosol Administer 1 spray (4 mg) in one nostril one time. May repeat in alternating nostrils every 2-3 min until responsive or EMS arrives. 2 Each 3 0 Active traMADoL (ULTRAM) 50 mg tabletIndicatio ns:Chest wall pain Take 2 Tablets (100 mg) by mouth every 6 hours as needed for severe pain 20 Tablet 11/27/2019 12:38 PM CDT 0 Active Active Problems Problem Noted Date Diagnosed Date Acute cystitis without hematuria 11/26/2019 Precordial chest pain 11/16/2019 Protein-calorie malnutrition, moderate 0 [place] (myocardial infarction) 11/11/2019 Acute coronary syndrome with high troponin 11/10 Overview (11/11/2019): Added automatically from request for surgery [id number] History of below-knee amputation of left lower e xtremity 11/11/2019 Takotsubo cardiomyopathy 11/11/2019 Hyponatremia 07/20/2019 Abnormal grief reaction 07/19/2019 Protein-calorie malnutrition, moderate 9 Cellulitis of left foot 07/12/2019 Acute opioid withdrawal 07/10/2019 Hypercalcemia 07/09/2019 Amputation of right great toe 07/05/2019 Bacteremia 07/02/2019 Acute hematogenous osteomyelitis of right foot 1 09/01/2018 FIONA (acute kidney injury) 06/17/2019 Restless leg syndrome 05/02/2019 Normocytic anemia 05/02/2019 Osteomyelitis 04/11/2019 Diabetic ulcer of left great toe 03/24/2019 Hypomagnesemia 03/24/2019 Severe protein-calorie malnutrition 03/05/2019 Sacral decubitus ulcer 03/04/2019 Weight loss 03/04/2019 Dyslipidemia 03/03/2019 Elevated troponin 01/19/2019 ASHD (arteriosclerotic heart disease) 01/19/2019 Intractable vomiting 12/09/2018 Acute diarrhea 12/09/2018 Unspecified protein-calorie malnutrition 019 High anion gap metabolic acidosis 11/29/2018 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 Esophagitis, [place] grade C 10/03/2018 Moderate protein-calorie malnutrition 09/30/2018 Overview (11/11/2019): ASPEN Malnutrition Assessment and Findings Subcutaneous Fat Loss Assessment: Moderate fat loss (11/11/19 143) Muscle Wasting Assessment: Severe (11/11/19 143) Edema: Normal contour with a barely perceptible pit (no findings) (11/11/19 1430) Hand Vision Teacher: Unable to assess(s/p cath ) (11/11/19 143) Percentage of Energy: Other (see comments)(varriable per pt - hx gastroparesis) (11/11/19 143) Percentage of Weight Loss: >7.5% in 3 months (severe)(estimate 15 lb actual loss, and 15 lb d/t BKA) (11/11/19 143) Malnutrition Decision Dietitian Assessment: Moderate protein-calorie (11/11/19 143) Hx of migraine headaches 09/27/2018 Essential hypertension 09/27/2018 Incidental pulmonary nodule, > 3mm and < 8mm rt lung 09/20/2018 Elevated alkaline phosphatase level 09/19/2018 Diabetes mellitus with hyperglycemia 09/19/2018 Thrombocytosis 09/19/2018 Osteomyelitis of left foot 07/04/2018 Noncompliance with medication regimen 07/04/2018 Protein-calorie malnutrition, moderate 8 Diabetic ulcer of right midf oot associated with type 2 diabetes mellitus, with fat layer exposed 07/04/2018 Wound dehiscence, surgical 01/10/2018 Diabetic polyneuropathy asso ciated with type 2 diabetes mellitus 12/30/2017 Acute hematogenous osteomyelitis of left foot Other chest pain 12/18/2017 Hypertensive urgency, malignant 12/18/2017 Type 2 diabetes mellitus with hyperglycemia 09/2017 H/O supraventricular tachycardia 12/18/2017 Overview (12/18/2017): [place] to be caffeine induced Intractable vomiting with nausea Hypokalemia Diabetic gastroparesis Intractable chronic migraine without aura and without status migrainosus Intractable cyclical vomiting with nausea Chronic abdominal pain Chest wall pain Occult GI bleeding PEG (percutaneous endoscopic gastrostomy) adjustment/replacement/removal Microcytic anemia Uncomplicated opioid dependence Current mild episode of tony r depressive disorder without prior episode Resolved Problems Problem Noted Date Diagnosed Date Resolved Date Abscess of skin and subcutaneous tissue 04/11/2019 05/04/2019 Cellulitis 04/09/2019 05/04/2019 Acute renal failure with tubular necrosis 09/27/2018 10/07/2018 Moderate protein-calorie malnutrition 09/21/2018 09/23/2018 Cellulitis of great toe of left foot 12/20/2017 12/30/2017 Diabetic ulcer of toe associ ated with type 2 diabetes mellitus, with fat layer exposed 12/20/2017 12/30/2017 Epigastric pain 09/23/2018 Dehydration 10/06/2018 Immunizations Immunization Administration Dates Next Due (PNEUMOVAX 23)(50 YRS UP) PN EUMOCOCCAL POLYSACCHARIDE (PPV23) 0.5 ML, IM 07/02/2019 INFLUENZA VACCINE QUADRIVALENT 6 MOS UP PF IM Family History Medical History Relation Name Comments Heart Disease Brother Diabetes Father Diabetes Mother Relation Name Status Comments Brother Father Mother Social History Tobacco Use Types Packs/Day Years Used Date Smoking Tobacco: Former Cigarettes 0.5 20 1 993 - 2012 Smokeless Tobacco: Never Alcohol Use Standard Drinks/Week Comments No 0 (1 standard drink = 0.6 oz pur e alcohol) Comments No Sex and Gender Information Value Date Recorded Sex Assigned at Not on file Legal Sex Female 3:09 AM PIPE [employer] Gender Identity Not on file Sexual Orientation Not on file Last Filed Vital Signs Vital Sign Reading Time Taken Comments Blood Pressure 126/79 11/27/2019 12:06 PM CDT Pulse 61 11/27/2019 12:06 PM CDT Temperature 36.3 C (97.4 F) 11/27/2019 12:06 PM CDT Respiratory Rate 18 11/27/2019 12:06 PM CDT Oxygen Saturation 100% 11/27/2019 12:06 PM CDT Inhaled Oxygen Concentration - - Weight 61.4 kg (135 lb 5.8 oz) 11/27/2019 4:53 A M CDT Height 175.3 cm (5' 9 ) 11/25/2019 10:53 PM CDT Body Mass Index 19.99 11/25/2019 10:53 PM CDT Plan of Treatment Health Maintenance Due Date Last Done Comments DIABETES ANNUAL RETINAL EXAM 1996 DIABETES MICROALBUMIN ANNUAL SCREEN 1996 DTAP/TDAP/TD VACCINES (1 - Tdap) 1997 HEPATITIS B VACCINES (1 of 3 - 19+ 3-dose series) 1997 HPV/Cotest (21-29) 1999 CERVICAL CANCER SCREENING 2008 HPV/Cotest (30-65) 2008 PAP SMEAR 2008 BREAST CANCER SCREENING 2018 DIABETES ANNUAL FOOT EXAM 12/30/2018 12/30/2017 DIABETES HBA1C Q 6 MONTHS 07/26/20202019, 11/11/2019, 06/18/2019, Additional history exists LDL CHOLESTEROL ANNUAL 11/10/2020 11/11/2019, 2017 FIT-DNA Q 3 years 2023 FIT/FOBT Q 1 year 2023 Flex Sig/CT Colonography Q 5 years 2023 INFLUENZA VACCINE (#1) 2025 07/02/2019 COLORECTAL SCREENING 06/26/2029 06/26/2019, 06/26/20 Colorectal Cancer Screening 06/26/2029 HPV VACCINES Aged Out No longer eligi ble based on patient's age to complete this topic Medical Devices Implanted Type Area Field Advisor Device Identifier Shelf Expiration Date Model / Serial / Lot Powerline-02/16 Implanted:Qty : 1 on 03/06/2019 by Ovi Cohen MD Catheter Right: Chest [id number] 03/18/2021 [id number] / / [id number] 18f 30cm Gj Feeding Tube- 9 Implanted:Qty : 1 on 10/15/2018 by Ovi Cohen MD Feeding Device Jejunum 03/19/2020 0250-18-3 0 / / [id number] Hemostatic Surgicel 3x4in 1942 - [id number] Implanted: by Pelon Rose DPM at [facility] (Quantity not on file) Hemostatic Left: Foot [employer] 02/15/2023 1945 / / [id number] Explanted Type Area Field Advisor Device Identifier Shelf Expiration Date Model / Serial / Lot 16fr 30cm Richy Gastro-Jejuna l Feeding Tube- 9 Implanted:Qty : 1 on 10/08/2018 by Luis Alberto Fields MD Explanted:Qty : 1 on 10/15/2018 by Ovi Cohen MD Feeding Device N/A: Abdomen 01/18/2020 [id number] 0 / / [id number] Procedures Procedure Name Priority Date/Time Associated Diagnosis Comments LIPID PANEL Routine 11/11/2019 9:47 AM CDT HEMOGLOBIN A1C Routine 11/11/2019 5:10 AM CDT COLONOSCOPY REPORT 06/26/2019 4: 22 PM [employer]IPE [employer]TE[employer]CE from Last 3 Months or Most Recently Relevant to Health Maintenance Results * (ABNORMAL) LIPID PANEL (11/11/2019 9:47 AM CDT) [facility] CHOLESTEROL 133 <200 mg/dL 11/12/2019 12:47 AM CDT [facility] Simplify [facility] TRIGLYCERIDE 165(H) <150 mg/dL 11/12/2019 12:47 AM CDT [facility] Simplify [facility] HDL 45 40 - 59 mg/dL 11/12/2019 12:47 AM CDT [facility] LDL CALCULATED 55 <100 mg/dL 11/12/2019 12:47 AM CDT [facility] Simplify [facility] NON-HDL CHOLESTEROL 88 <130 mg/dL 11/12/2019 12:47 AM T [facility] Simplify [facility] Blood Venipuncture / Unknown 11/11/2019 9:47 AM CDT 11/11/2019 9:52 AM CDT Narrative [facility] Simplify [facility] - 11/12/2019 12:47 AM CDT TOTAL CHOLESTEROL mg/dL Desirable <200 Borderline high [...] Macias MD CHEMISTRY ORDERABLES Final R esult Performing Organization Address City/[facility]/ZIP Co de Phone Number [facility] CLIA# [id number] [facility] [place] [address] * (ABNORMAL) HEMOGLOBIN A1C (11/11/2019 5:10 AM CDT) HEMOGLOBIN A1C 8.9(H) <=5.6 % 11/11/2019 12:26 PM CDT [facility] EST. AVG GLUCOSE, A1C 209 mg/dL 11/11/2019 12:26 PM CDT [facility] Blood Venipuncture / Unknown 11/11/2019 5:10 AM CDT 11/11/2019 5:12 AM CDT Narrative [facility] - 11/11/2019 12:26 PM CDT HGB A1C INTERPRETATION NORMAL: <5.7% PRE-DIABETES: 5.7 - 6.4% DIABETES: 6.5% OR GREATER Rubia Macias MD CHEMISTRY ORDERABLES Final R esult Performing Organization Address [facility] Co de Phone Number [facility] CLIA# [id number] [address] [place] [id number] * COLONOSCOPY REPORT (06/26/2019 4:22 PM PIPE [employer]TER [employer]PER[employer]INTENANCE) Narrative Procedure Note Adryan Ibarra MD - 06/26/2019 4:21 PM CST [facility] GI Patient Name: Cherrie Solomon Procedure Date: 06/26/2019 Date of : 1980 Admit Type: Outpatient Age: 39 Attending MD: Adryan Ibarra , Procedure: Colonoscopy Indications: Gastrointestinal occult blood loss Providers: Adryan Sanchez MD: Medicines: Monitored Anesthesia Care Complications: No immediate complications. Procedure: Pre-Anesthesia Assessment: - Prior to the procedure, a History and Physical was performed, and patient medications, allergies and sensitivities were reviewed. The patient's tolerance of previous anesthesia was reviewed. - The risks and benefits of the procedure and the sedation options and risks were discussed with the patient. All questions were answered and informed consent was obtained. - [place] Protocol: - Pre-procedure Verification: Prior to the procedure, the patient's identity was verified by full name and date of . The patient's identity was verified on all pertinent medical records, including History and Physical and pre-anesthesia assessment. Also prior to the procedure, a History and Physical was performed, and patient medications, allergies and sensitivities were reviewed. The patient's tolerance of previous anesthesia was reviewed. The risks and benefits of the procedure and the sedation options and risks were discussed with the patient. All questions were answered and informed consent was obtained. - Marking: The endoscopic procedure was visually marked on a patient wrist band delineating the patient name, proposed procedure and endoscopist's initials. - Time-Out: Prior to the start of the procedure, the patient's identification, proposed procedure, accurate signed consent, correctly labeled images and records, and need for prophylactic antibiotics were verified by the physician and the nurse in the endoscopy suite. - Prior to the procedure, a History and Physical was performed, and patient medications and allergies were reviewed. The patient's tolerance of previous anesthesia was also reviewed. The risks and benefits of the procedure and the sedation options and risks were discussed with the patient. All questions were answered, and informed consent was obtained. Prior Anticoagulants: The patient has taken no previous anticoagulant or antiplatelet agents. ASA Grade Assessment: II - A patient with mild systemic disease. After reviewing the risks and benefits, the patient was deemed in satisfactory condition to undergo the procedure. After I obtained informed consent, the scope was passed under direct vision. Throughout the procedure, the patient's blood pressure, pulse, and oxygen saturations were monitored continuously. The Colonoscope was introduced through the anus and advanced to the cecum, identified by appendiceal orifice and ileocecal valve. The colonoscopy was performed with ease. The patient tolerated the procedure well. The quality of the bowel preparation was adequate. The ileocecal valve, appendiceal orifice, and rectum were photographed. The quality of the bowel preparation was fair. Estimated Blood Loss: Estimated blood loss was minimal. Findings: The perianal and digital rectal examinations were normal. Pertinent negatives include normal sphincter tone, no palpable rectal lesions and no anal lesion or abnormality. Internal hemorrhoids were found during retroflexion. The hemorrhoids were small. Impression: - Preparation of the colon was fair. - Internal hemorrhoids. - No specimens collected. - No stigmata of recent or active bleeding on colonoscopy. Recommendation: - Resume previous diet. - If patient continues to have falling hemoglobin and hematocrit may consider wireless capsule endoscopy which can be done as an outpatient. Adryan Ibarra, 06/26/2019 4:21:03 PM Number of Addenda: 0 Note Initiated On: 06/26/2019 3:58 PM Scope Withdrawal Time 0 hours 6 minutes 38 seconds Scope In: 3:59:35 PM Scope Out: 4:09:59 PM [address] [place], [place] Adryan Ibarra MD GI PROCEDURE ORDERABL ES Final Result from Last 3 Months or Most Recently Relevant to Health Maintenance Insurance RX [employer] (INTERNAL) [facility] [employer] RX INFO[employer]OSSING Medicaid [place] Advance Directives For more information, please contact: [phone] * Full Code (Latest Code Status on File) Date Activated Date Inactivated Comments 11/26/2019 12:19 AM 11/27/2019 3:20 PM * Full Code Date Activated Date Inactivated Comments 11/22/2019 4:23 AM 11/23/2019 5:24 PM * Full Code Date Activated Date Inactivated Comments 11/16/2019 12:07 AM 11/17/2019 7:34 PM * Full Code Date Activated Date Inactivated Comments 11/11/2019 3:57 AM 11/13/2019 3:34 PM * Full Code Date Activated Date Inactivated Comments 07/27/2019 7:14 AM 07/31/2019 8:10 PM Care Teams Subway Train Driver Relationship Specialty Start Date End Date Kentrell Herring MD [address] [facility] [place] [place] [address] PCP - General Family Practice 09/19/18
[2025-03-13 11:22] VITALS: BP 145/81; PULSE 116; RESP 18; TEMP 36.8; O2SAT 95; BMI 27.1
--- NOTE | 2025-03-13 12:45 | ED_ITS ---
HPI - Back Pain/Injury 2 General: Chief Complaint: Back Pain/Injury Stated Complaint: abd pain Time Seen by Provider: 03/13/25 12:34 History of Present Illness: 44-year-old female presents emergency ro om complaining of abdominal pain bilateral flank pain. She states symptoms for the last 3 days. She was recently released from [facility] for kidney issues was told she had stage IV kidney failure. She has previously had an embolization last month she had a CT that showed no renal stones but did show infarct postembolization. Has not had any fever sweats chills no hematuria Associated symptoms: Deny abdominal pain, chills, dysuria, fever(s) or urinary urgency Related Data Home Medications ?Medication ?Instructions ?Recorded ?Confirmed quetiapine 100 mg tablet 100 mg PO BEDTIME 09/13/24 0 03/13/25 hydralazine 100 mg tablet 100 mg PO Q8H 01/06/2503/13 isosorbide dinitrate 20 mg tablet 20 mg PO BID 5 03/13/25 naloxone 4 mg/actuation nasal See Rx Instructions .Rou te .COMPLEX 01/06/25 03/13/25 spray (Narcan) paroxetine HCl 20 mg tablet 20 mg PO DAILY 01/06/25 propranolol 20 mg tablet 20 mg PO Q8H 01/06/25 quetiapine 50 mg tablet 50 mg PO QAM 02/05/25 metoclopramide HCl 10 mg tablet 5 mg PO QID 03/13/25 0 03/13/25 nifedipine 30 mg tablet,extended 30 mg PO DAILY 03/13/25 release Previous Rx's ?Medication ?Instructions ?Recorded pregabalin 75 mg capsule (Lyrica) 75 mg PO BID #60 cap s 01/30/25 cefdinir 300 mg capsule 300 mg PO BID #14 caps 03/13 Allergies Allergy/AdvReac Type Severity Reaction Status Date / Time morphine Allergy ALGY-Difficulty Verified 09/12/24 20:19 Breathing sulfamethoxazole (From Allergy ADR-Vomitin Verified 09/12/24 20:19 Bactrim) g trimethoprim (From Bactrim) Allergy ADR-Vomitin Verified 09/12/24 20:19 g Review of Systems 2 Const: Denies: fever(s) or chills Card: Denies: chest pain Resp: Denies: dyspnea GI: Denies: abdominal pain : Reports: flank pain; Denies: dysuria, urinary frequency or urinary urgency Musc: Denies: neck pain or back pain Skin/Breast: Denies: rash PFSH ED 2 PFSH: Medical History Acute kidney injury superimposed on CKD Type 1 diabetes mellitus with other skin ulcer Suicide attempt Urinary retention Septic prepatellar bursitis of left knee Chronic pain Hyperglycemia Anemia of chronic disease Insomnia GERD (gastroesophageal reflux disease) ALEJANDRO (generalized anxiety disorder) C. 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 CKD (chronic kidney disease) stage 2, GFR 60-89 ml/min baseline Cr is around 1.0 Diabetic foot ulcer s/p surgical intervention and eventual amputation Hyperlipidemia Coronary artery disease hx of stenting Diabetic gastroparesis Diabetes mellitus type 1 diagnosed age 15, history of peripheral neuropathy, gastroparesis and nephropathy Surgical History Hx of angioplasty H/O esophagogastroduodenoscopy (12/31/20) Bile reflux gastritis, grade B esophagitis Hx of cholecystectomy History of amputation of right forefoot Below-knee amputation of left lower extremity S/P percutaneous endoscopic gastrostomy (PEG) tube placement H/O exploratory laparotomy x 3 Previous section x 3 S/P coronary artery stent placement x 1 Family History Unknown Diabetes extensive, type II Other Congestive heart failure (CHF) Social History Smoking and tobacco/nicotine status: former use of tobacco/nicotine Quit status (tobacco/nicotine): has quit using Former quit date comment: 15 yrs ago Alcohol intake: former Former alcohol use details: 15 yrs ago Substance/Drug Use: current Substance/Drug use frequency: daily Household members: spouse Marital status: Current occupation: disabled Sexually active: Yes (1, ) Female Reproductive History: Spontaneous abortions: No Physical Exam 2 Const: COMMON NORMALS: no acute distress GENERAL APPEARANCE: cooperative and comfortable ORIENTATION/CONSCIOUSNESS: Yes awake, Yes oriented to person, Yes oriented to place and Yes oriented to time HENMT: COMMON NORMALS: normocephalic, atraumatic and hearing grossly normal bilaterally HEAD & SCALP: normocephalic and atraumatic Resp: COMMON NORMALS: normal respiratory effort, No retractions, No use of accessory muscles and clear to auscultation bilaterally AUSCULTATION: clear to auscultation bilaterally Cardio: COMMON NORMALS: regular rate, regular rhythm and No murmurs present (Cardio) RATE: regular rate RHYTHM: regular rhythm GI: COMMON NORMALS: Soft to palpation and No hepatosplenomegaly present A USCULTATION: Yes normoactive bowel sounds PALPATION: Yes Soft to palpation, No Tenderness to palpation present (GI), No Guarding due to palpation present (GI) and Yes No hepatosplenomegaly present Extremity: OTHER: Upper extremities normal. Bilaterally patient has headaches amputations of the lower extremities. The stumps appear grossly fine there is no signs of infection no edema no redness Neuro: SENSORIUM/ORIENTATION: Yes oriented to person, Yes oriented to place and Yes oriented to time Skin: COMMON NORMALS: no rashes or lesions noted GENERAL SKIN EXAM: no rashes or lesions noted Course 2 Vital Signs: Vital signs: Vital Signs Temperature 98.2 F 03/13/25 11:22 Pulse Rate 83 03/13/25 14:46 Respiratory Rate 17 03/13/25 14:16 Blood Pressure 208/108 03/13/25 14:46 Pulse Oximetry 99 03/13/25 14:46 Oxygen Delivery Me thod Room Air 03/13/25 11:22 MDM - Back Pain/Injury Medical Decision Making Cystitis no leukocytosis. Patient also has anemia consistent with her chronic renal disease in the same range she has been in the past we will give her a dose of Rocephin here discharged home on cefdinir 300 twice daily and have her follow-up with her primary care provider patient refused blood cultures in the department. Medical Records I reviewed the patient's medical records. Labs I reviewed the patient's lab results. 03/13/25 12:25 03/13/25 12:25 Laboratory Results WBC 4.36 10^3/uL (3.29-11.43) 03/13/25 12: RBC 2.98 10^6/uL (3.85-5.65) L 03/13/25 12:25 Hgb 8.70 g/dL (11.27-16.99) L 03/13/25 12:25 Hct 27.6 % (36-47) L 03/13/25 12:25 MCV 92.6 fl (85-98) 03/13/25 12:25 MCH 29.2 pg (27-33) 03/13/25 12:25 MCHC 31.5 g/dL (30-55) 03/13/25 12: RDW 14.1 % (12.1-15.1) 03/13/25 12:25 Plt Count 329 10^3/cmm (157-399) 03/13/25 12:25 MPV 8.2 fL (7.4-10.4) 03/13/25 12:25 Neut % (Auto) 63.7 % 03/13/25 12:25 Lymph % (Auto) 25.5 % 03/13/25 12:25 [place] % (Auto) 7.8 % 03/13/25 12:25 Eos % (Auto) 2.1 % 03/13/25 12:25 Baso % (Auto) 0.7 % 03/13/25 12:25 Neut # (Auto) 2.78 10^3/uL (1.8-7.7) 03/13/25 12:25 Lymph # (Auto) 1.1 10^3/uL (0.8-4.8) 03/13/25 12:25 [place] # (Auto) 0.3 10^3/uL (0.2-0.9) 03/13/25 12:25 Eos # (Auto) 0.1 10^3/uL (0.0-0.8) 03/13/25 12:25 Baso # (Auto) 0.0 10^3/uL (0.0-0.1) 03/13/25 12:25 Nucleated RBC % (auto) 0 % 03/13/25 12:25 Nucleated RBCs # 0.0 /100WBC 03/13/25 12:25 Sodium 138 mmol/L (136-145) 03/13/25 12:25 Potassium 4.2 mmol/L (3.5-5.1) 03/13/25 12:25 Chloride 104 mmol/L (98-107) 03/13/25 12:25 Carbon Dioxide 18 mmol/L (22-29) L 03/13/25 12:25 Anion Gap 20.2 (5-19) H 03/13/25 12:25 BUN 26 mg/dL (6-20) H 03/13/25 12:25 Creatinine 2.5 mg/dL (0.5-0.9) H 03/13/25 12:25 GFR Calculation 20.7 mL/min (90-130) L 03/13/25 12:25 Glucose 86 mg/dL (65-115) 03/13/25 12:25 Calculated Osmolality 290 mOsm/kg (285-295) 03/13/25 12:25 Calcium 8.7 mg/dL (8.5-10.5) 03/13/25 12:25 Total Bilirubin 0.2 mg/dL (0.15-1.2) 03/13/25 12:25 AST 13 U/L (0-32) 03/13/25 12:25 ALT 8 U/L (0-33) 03/13/25 12:25 Alkaline Phosphatase 215 U/L (35-105) H 03/13/25 12:25 Total Protein 7.3 g/dL (6.6-8.7) 03/13/25 12:25 Albumin 3.7 g/dL (3.5-5.2) 03/13/25 12:25 Globulin 3.6 g/dL (1.3-4.6) 03/13/25 12:25 Lipase 38 U/L (13-60) 03/13/25 12:25 Urine Color Yellow (Yellow) 03/13/25 13:15 Urine Appearance Clear (CLEAR) 03/13/25 13:15 Urine pH 6.0 (5-7) 03/13/25 13:15 Ur Specific [place] 1.016 (1.005-1.030) 03/13/25 13:15 Urine Protein 4+ (Negative) A 03/13/25 13:15 Urine Glucose (UA) Negative (Normal) 03/13/25 13:15 Urine Ketones Negative (Negative) 03/13/25 13:15 Urine Blood Trace (Negative) A 03/13/25 13:15 Urine Nitrate Negative (Negative) 03/13/25 13:15 Urine Bilirubin Negative (Negative) 03/13/25 13:15 Urine Urobilinogen 1.0 mg/dL (Negative) 03/13/25 13:15 Ur Leukocyte Esterase 1+ (Negative) A 03/13/25 13:15 Urine RBC 0-2 /hpf (0-2) 03/13/25 13:15 Urine WBC 11-20 /hpf (0-5) H 03/13/25 13:15 Ur Squamous Epith Cells 0-5 /hpf (0-5) 03/13/25 13:15 Amorphous Sediment Not Reportable 03/13/25 13:15 Urine Bacteria None seen /hpf (NONE) 03/13/25 13:15 Hyaline Casts 2.05 /lpf 03/13/25 13:15 All radiology interpretation(s) finalized by discharge Discharge Plan Discharge Patient Disposition: Home Clinical Impression: Cystitis Condition: Stable Prescriptions: New cefdinir 300 mg capsule 300 mg PO BID Qty: 14 0RF No Action quetiapine 100 mg tablet 100 mg PO BEDTIME paroxetine HCl 20 mg tablet 20 mg PO DAILY hydralazine 100 mg tablet 100 mg PO Q8H isosorbide dinitrate 20 mg tablet 20 mg PO BID propranolol 20 mg tablet 20 mg PO Q8H naloxone [Narcan] 4 mg/actuation spray,non-aerosol See Rx Instructions .ROUTE .COMPLEX Rx Instructions: EMERGENCY USE ONLY, ADMINISTER A SINGLE SPRAY IN ONE NOSTRIL UPON SIGNS OF OPIOID OVERDOSE. MAY REPEAT IN ALTERNATING NOSTRILS EVERY 2 TO 3 MINUTES UNTIL RESPONSIVE OR EMS ARRIVES. quetiapine 50 mg tablet 50 mg PO QAM pregabalin [Lyrica] 75 mg capsule 75 mg PO BID Qty: 60 0RF nifedipine 30 mg tablet extended release 30 mg PO DAILY metoclopramide HCl 10 mg tablet 5 mg PO QID Discharge Orders: Discharge ED (Routine); Ordered 03/13/25 Ordered By: Adama Ceballos Referrals: Monika Simpson MD [Primary Care Provider, Family Practice] Discharge Diet: Usual diet Discharge Activity: Increase activity as tolerated Patient Instructions: Opioid Safety, Pain Management, Patient Portal & Karina Instructions Activity Restrictions/Additional Instructions: Thank you for choosing [facility] for your healthcare needs today. It is very important that you follow up as instructed or that you return to the Emergency Department should you have concerns or if your condition changes or worsens in any way. You were seen emergency room with a complaint of back pain. Ultrasound of your kidneys did not show any significant normality urine showed signs of infection your white count was normal. You are chronically anemic about the same range you have been in the past. Recommend you start oral antibiotics cefdinir 1 tablet twice a day for 7 days Print Language: Telugu Coding Level of Care Code ED [place] Management Specialist for Kim Mitchell
[2025-03-13 12:48] LABS: Hematocrit 27.6 % (36-47); Hemoglobin 8.70 g/dL (11.27-16.99); Mean Corpuscular HGB Conc 31.5 g/dL (30-55); Mean Corpuscular Hemoglobin 29.2 pg (27-33); Mean Corpuscular Volume 92.6 fl (85-98); Nucleated Red Blood Cells % 0 %; Platelet Count 329 10^3/cmm (157-399); Red Blood Count 2.98 10^6/uL (3.85-5.65); White Blood Count 4.36 10^3/uL (3.29-11.43)
--- NOTE | 2025-03-13 12:52 | USR_ITS ---
PROCEDURE INFORMATION: Exam: US Retroperitoneal, Complete, Kidneys and Bladder Exam date and time: 03/13/2025 1:45 PM Age: 44 years old Clinical indication: Condition or disease; Kidney or ureter condition; Other: Renal infarct postembolization; Prior surgery; Surgery date: 6+ months; Surgery type: Unsure of dates- patient has had kidney stents and coils TECHNIQUE: Imaging protocol: Real-time ultrasound of the retroperitoneum with image documentation. Complete exam focused on the bilateral kidneys and urinary bladder. COMPARISON: US renal BI* [id number] 11/03/2024 4:55 PM FINDINGS: Right kidney: Hyperechoic right kidney. No obstruction. No stones. Renal cortical thickness 0.5 cm. Left kidney: Hyperechoic. No stones. No hydronephrosis. Left renal cortical thickness 1.1 cm. Urinary bladder: Unremarkable. US/US renal BI* [id number] IMPRESSION: Medical renal disease of both kidneys, right possibly greater than left..
[2025-03-13 13:04] LABS: Alanine Aminotransferase 8 U/L (0-33); Albumin Level 3.7 g/dL (3.5-5.2); Alkaline Phosphatase 215 U/L (35-105); Anion Gap 20.2 (5-19); Aspartate Amino Transferase 13 U/L (0-32); Blood Urea Nitrogen 26 mg/dL (6-20); Calcium 8.7 mg/dL (8.5-10.5); Carbon Dioxide 18 mmol/L (22-29); Chloride 104 mmol/L (98-107); Creatinine Clr Calc Pharmacy 26.1748; Globulin 3.6 g/dL (1.3-4.6); Glucose 86 mg/dL (65-115); Lipase 38 U/L (13-60); Osmolality Calculated 290 mOsm/kg (285-295); Potassium 4.2 mmol/L (3.5-5.1); Sodium 138 mmol/L (136-145); Total Protein 7.3 g/dL (6.6-8.7)
[2025-03-13 13:08] VITALS: BP 200/99; PULSE 84; O2SAT 100
[2025-03-13 13:34] LABS: Glucose Urine UA Negative (Normal); Nitrate Urine Negative (Negative); Specific Gravity, Urine 1.016 (1.005-1.030)
[2025-03-13 13:39] LABS: Add Urine Microscopic? YES
--- NOTE | 2025-03-13 14:15 | PC.NURSE ---
rocephin delayed d/t pending blood culture order/obtaining cultures
[2025-03-13 14:16] VITALS: RESP 17; O2SAT 100
[2025-03-13] MEDS: morphine 4 mg/mL SDV 1 mL 2 MG IVP (14:16)
--- NOTE | 2025-03-13 14:38 | PC.NURSE ---
pt refusing blood cultures, Dr. Ceballos aware. administered IVP Rocephin, pt refusing to wait post admin to see if having reaction.
[2025-03-13] MEDS: cefTRIAXone 1,000 mg SDV 1000 MG IVP (14:40)
[2025-03-13 14:46] VITALS: BP 208/108; PULSE 83; O2SAT 99
== END 2025-03-13 14:47 | disposition home or self-care (01) ==
PROVIDERS: Emergency Medicine; Emergency Provider Family Medicine; PCP Family Medicine
DX: N30.90 Cystitis, unspecified without hematuria (principal); Z87.891 Personal history of nicotine dependence; E78.5 Hyperlipidemia, unspecified; I25.10 Atherosclerotic heart disease of native coronary artery without angina pectoris; E10.22 Type 1 diabetes mellitus with diabetic chronic kidney disease; N18.2 Chronic kidney disease, stage 2 (mild)
CPT/HCPCS: 36415; 76770; 80053; 81001; 83690; 85025; 87086; 96374; 96375; 99284; J0696; J2270; J7030

== ENCOUNTER 2025-04-24 14:47 | Inpatient (IN) | payer MEDICAID, SELFPAY ==
[2025-04-24] VITALS (34 sets, daily range): BP systolic 145–212; BP diastolic 70–119; PULSE 98–167; RESP 10–26; TEMP 36.7–36.9; O2SAT 96–100
--- NOTE | 2025-04-24 14:49 | ECG_ITS ---
[facility] Test Date: 2025-04-24 Pat Name: Cherrie Solomon Department: Room: Gender: Female Watch Supervisor: : [id number] Requested By: Kami Clancy Order Number: [id number] Jeff MD: MESFIN HERMOSILLO Measurements Intervals Rozel Rate: 83 P: 71 ME: 179 QRS: 6 QRSD: 101 T: 70 QT: 405 QTc: 476 Interpretive Statements SINUS RHYTHM Compared to ECG 01/06/2025 16:12:41 T-wave abnormality no longer present Electronically Signed On 04-26-2025 10:50:23 CDT by MESFIN HERMOSILLO [email or web address]
--- NOTE | 2025-04-24 14:52 | W.ED.PSYCHS ---
Documented by User: Kami Adam MD 04/24/25 18:04 HPI - Psych General: Chief Complaint: Psychiatric Symptoms Stated Complaint: SI/BACK PAIN Time Seen by Provider: 04/24/25 14:49 History of Present Illness: 45-year-old female with a history of chronic pain syndrome, bilateral lower extremity amputations, chronic depression with recurrent suicidal ideation, self harming behaviors, diabetes, gastroparesis, hyperlipidemia, hypertension disease who presents to the emergency room by ambulance with complaints of suicidal thoughts. She says her back pain has gotten to the point that she wants to end it all. She has some superficial lacerations on her stumps from glass she had thrown on the floor. Related Data Home Medications ?Medication ?Instructions ?Recorded ?Confirmed quetiapine 100 mg tablet 100 mg PO BEDTIME 09/13/24 03/13/25 hydralazine 100 mg tablet 100 mg PO Q8H 01/06/25 03/13/25 isosorbide dinitrate 20 mg tablet 20 mg PO BID 01/06/25 03/13/25 naloxone 4 mg/actuation nasal See Rx Instructions .Route .COMPLEX 01/06/25 03/13/25 spray (Narcan) paroxetine HCl 20 mg tablet 20 mg PO DAILY 01/06/25 03/13/25 propranolol 20 mg tablet 20 mg PO Q8H 01/06/25 03/13/25 quetiapine 50 mg tablet 50 mg PO QAM 02/05/25 03/13/25 metoclopramide HCl 10 mg tablet 5 mg PO QID 03/13/25 03/13/25 nifedipine 30 mg tablet,extended 30 mg PO DAILY 03/13/25 03/13/25 release Previous Rx's ?Medication ?Instructions ?Recorded pregabalin 75 mg capsule (Lyrica) 75 mg PO BID #60 caps 01/30/25 cefdinir 300 mg capsule 300 mg PO BID #14 caps 03/13/25 Allergies Allergy/AdvReac Type Severity Reaction Status Date / Time morphine Allergy ALGY-Difficulty Verified 09/12/24 20:19 Breathing sulfamethoxazole (From Allergy ADR-Vomitin Verified 09/12/24 20:19 Bactrim) g trimethoprim (From Bactrim) Allergy ADR-Vomitin Verified 09/12/24 20:19 g Review of Systems Narrative: Constitutional symptoms: Negative except as documented in HPI. Skin symptoms: Negative except as documented in HPI. Eye symptoms: Negative except as documented in HPI. ENMT symptoms: Negative except as documented in HPI. Respiratory symptoms: Negative except as documented in HPI. Cardiovascular symptoms: Negative except as documented in HPI. Gastrointestinal symptoms: Negative except as documented in HPI. Genitourinary symptoms: Negative except as documented in HPI. Musculoskeletal symptoms: Negative except as documented in HPI. Neurologic symptoms: Negative except as documented in HPI. Psychiatric symptoms: Negative except as documented in HPI. Endocrine symptoms: Negative except as documented in HPI. PFSH ED PFSH: Medical History (Updated 04/24/25 @ 17:56 by Kami Adam MD) Acute kidney injury superimposed on CKD Type 1 diabetes mellitus with other skin ulcer Suicide attempt Urinary retention Septic prepatellar bursitis of left knee Chronic pain Hyperglycemia Anemia of chronic disease Insomnia GERD (gastroesophageal reflux disease) ALEJANDRO (generalized anxiety disorder) C. 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 CKD (chronic kidney disease) stage 2, GFR 60-89 ml/min baseline Cr is around 1.0 Diabetic foot ulcer s/p surgical intervention and eventual amputation Hyperlipidemia Coronary artery disease hx of stenting Diabetic gastroparesis Diabetes mellitus type 1 diagnosed age 15, history of peripheral neuropathy, gastroparesis and nephropathy Surgical History Hx of angioplasty H/O esophagogastroduodenoscopy (12/31/20) Bile reflux gastritis, grade B esophagitis Hx of cholecystectomy History of amputation of right forefoot Below-knee amputation of left lower extremity S/P percutaneous endoscopic gastrostomy (PEG) tube placement H/O exploratory laparotomy x 3 Previous section x 3 S/P coronary artery stent placement x 1 Family History Unknown Diabetes extensive, type II Other Congestive heart failure (CHF) Social History (Reviewed 03/13/25 @ 14:54 by ERIC Costa Smoking and tobacco/nicotine status: former use of tobacco/nicotine Quit status (tobacco/nicotine): has quit using Former quit date comment: 15 yrs ago Alcohol intake: former Former alcohol use details: 15 yrs ago Substance/Drug Use: current Substance/Drug use frequency: daily Household members: spouse Marital status: Current occupation: disabled Sexually active: Yes (1, ) Female Reproductive History: Spontaneous abortions: No Physical Exam Narrative: EXAM NARRATIVE: General: Alert, no acute distress. Skin: Warm, dry. Head: Normocephalic, atraumatic. Neck: Supple, trachea midline. Eye: Extraocular movements are intact. Ears, nose, mouth and throat: mucosa moist. Cardiovascular: Regular, Normal peripheral perfusion. Respiratory: Lungs are clear to auscultation, respirations are non-labored, breath sounds are equal, Symmetrical chest wall expansion. Gastrointestinal: Soft, Nontender, Non distended Musculoskeletal: BKA and AKA Neurological: Alert and oriented, No focal neurological deficit observed. Psychiatric: Very flat affect. Says because of her pain she just does not want to live anymore Course Vital Signs: Vital signs: Vital Signs Temperature 98.1 F 04/24/25 14:52 Pulse Rate 103 H 04/24/25 17:50 Respiratory Rate 18 04/24/25 17:50 Blood Pressure 200/113 04/24/25 17:50 Pulse Oximetry 98 04/24/25 17:50 Oxygen Delivery Me thod Room Air 04/24/25 17:50 MDM - Psych Medical Decision Making Differential diagnosis: Patient with reported depression and suicidal ideation. concerns for infection, alcohol intoxication, cardiac issues or other medical problems prior to psychiatric admission. Workup: labwork, ekg ordered to evaluate the pathologies and to clear the patient medically prior to psychiatric admission EKG: Time 1527. Rate 83. Normal sinus rhythm, No ST-T changes, no ectopy, normal AZ & QRS intervals, This was reviewed and interpreted by myself the ER physician at 1535. Lab Review: Laboratory results were reviewed and interpreted by myself the emergency room physician. - EKG shows no ischemic changes. - Blood alcohol level is negative, -Tylenol and salicylate levels are negative. - Drug screen is negative - No signs of infection, urinalysis clear and white count is not elevated - Stable chronic anemia - Worsening renal function. BUN Cr up to 80/3.4 from a baseline cr of above 2 Consultation: I spoke Dr. Martinez at length about the patient. He says there is been concerns about admitting her here and that she might need to be sent to tertiary care center. At this point he is speaking with administration and determination for transfer versus admission here will be determined. She has been started on a Cardene drip secondary to malignant hypertension. She has received 20 of labetalol IV and 20 of hydralazine IV and pressure still remain 206/136. She also continues to states she is suicidal. Dr. Steinberg spoke with administration and the patient is able to be admitted medically and consulted with psychiatry. Assessment and plan: Malignant hypertension Acute on chronic renal failure renal failure Suicidal thoughts ?IV hydralazine, IV labetalol and now starting a Cardene drip -Admission to neuropsychiatric unit for continued evaluation and treatment. - All lab work was reviewed and interpreted personally by myself, the ER physician - Evaluation and treatment of this problem were appropriate in the emergency setting Lab Data 04/24/25 15:01 04/24/25 15:01 Laboratory Results WBC 15.23 10^3/uL (3.29-11.43) H 04/24/25 15:01 RBC 3.11 10^6/uL (3.85-5.65) L 04/24/25 15:01 Hgb 9.30 g/dL (11.27-16.99) L 04/24/25 15:01 Hct 28.9 % (36-47) L 04/24/25 15:01 MCV 92.9 fl (85-98) 04/24/25 15:01 MCH 29.9 pg (27-33) 04/24/25 15:01 MCHC 32.2 g/dL (30-55) 04/24/25 15:01 RDW 14.8 % (12.1-15.1) 04/24/25 15:01 Plt Count 298 10^3/cmm (157-399) 04/24/25 15:01 MPV 9.0 fL (7.4-10.4) 04/24/25 15:01 Neut % (Auto) 85.2 % 04/24/25 15:01 Lymph % (Auto) 7.0 % 04/24/25 15:01 Bledsoe % (Auto) 4.9 % 04/24/25 15:01 Eos % (Auto) 1.8 % 04/24/25 15:01 Baso % (Auto) 0.4 % 04/24/25 15:01 Neut # (Auto) 12.99 10^3/uL (1.8-7.7) H 04/24/25 15:01 Lymph # (Auto) 1.1 10^3/uL (0.8-4.8) 04/24/25 15:01 Bledsoe # (Auto) 0.7 10^3/uL (0.2-0.9) 04/24/25 15:01 Eos # (Auto) 0.3 10^3/uL (0.0-0.8) 04/24/25 15:01 Baso # (Auto) 0.1 10^3/uL (0.0-0.1) 04/24/25 15:01 Nucleated RBC % (auto) 0 % 04/24/25 15:01 Nucleated RBCs # 0.0 /100WBC 04/24/25 15:01 Sodium 135 mmol/L (136-145) L 04/24/25 15:01 Potassium 4.5 mmol/L (3.5-5.1) 04/24/25 15:01 Chloride 99 mmol/L (98-107) 04/24/25 15:01 Carbon Dioxide 18 mmol/L (22-29) L 04/24/25 15:01 Anion Gap 22.5 (5-19) H 04/24/25 15:01 BUN 80 mg/dL (6-20) H 04/24/25 15:01 Creatinine 3.8 mg/dL (0.5-0.9) H 04/24/25 15:01 GFR Calculation 12.7 mL/min (90-130) L 04/24/25 15:01 Glucose 219 mg/dL (65-115) H 04/24/25 15:01 Calculated Osmolality 311 mOsm/kg (285-295) H 04/24/25 15:01 Calcium 9.2 mg/dL (8.5-10.5) 04/24/25 15:01 Total Bilirubin 0.3 mg/dL (0.15-1.2) 04/24/25 15:01 AST 36 U/L (0-32) H 04/24/25 15:01 ALT 22 U/L (0-33) 04/24/25 15:01 Alkaline Phosphatase 270 U/L (35-105) H 04/24/25 15:01 Total Protein 7.9 g/dL (6.6-8.7) 04/24/25 15:01 Albumin 4.3 g/dL (3.5-5.2) 04/24/25 15:01 Globulin 3.6 g/dL (1.3-4.6) 04/24/25 15:01 TSH 1.48 uIU/mL (0.27-4.20) 04/24/25 15:01 HCG, Qual Negative (Negative) 04/24/25 15:45 Urine Color Yellow (Yellow) 04/24/25 15:45 Urine Appearance Clear (CLEAR) 04/24/25 15:45 Urine pH 7.5 (5-7) 04/24/25 15:45 Ur Specific Entriken 1.013 (1.005-1.030) 04/24/25 15:45 Urine Protein 3+ (Negative) A 04/24/25 15:45 Urine Glucose (UA) Trace (Normal) H 04/24/25 15:45 Urine Ketones Negative (Negative) 04/24/25 15:45 Urine Blood 2+ (Negative) A 04/24/25 15:45 Urine Nitrate Negative (Negative) 04/24/25 15:45 Urine Bilirubin Negative (Negative) 04/24/25 15:45 Urine Urobilinogen 0.2 mg/dL (Negative) 04/24/25 15:45 Ur Leukocyte Esterase Negative (Negative) 04/24/25 15:45 Urine RBC 0-2 /hpf (0-2) 04/24/25 15:45 Urine WBC 0-5 /hpf (0-5) 04/24/25 15:45 Ur Squamous Epith Cells 0-5 /hpf (0-5) 04/24/25 15:45 Amorphous Sediment Not Reportable 04/24/25 15:45 Urine Bacteria None seen /hpf (NONE) 04/24/25 15:45 Hyaline Casts 0-4 /lpf H 04/24/25 15:45 Salicylates < 0.3 mg/dL (3-10) L 04/24/25 15:01 Urine Opiates Screen Negative ng/mL (Negative) 04/24/25 15:45 Acetaminophen < 5.0 ug/mL (10-30) L 04/24/25 15:01 Ur Barbiturates Screen Negative ng/mL (Negative) 04/24/25 15:45 Ur Phencyclidine Scrn Negative ng/mL (Negative) 04/24/25 15:45 Ur Amphetamines Screen Negative ng/mL (Negative) 04/24/25 15:45 U Benzodiazepines Scrn Negative ng/mL (Negative) 04/24/25 15:45 Urine Cocaine Screen Negative ng/mL (Negative) 04/24/25 15:45 U Marijuana (THC) Screen Positive ng/mL (Negative) H 04/24/25 15:45 Ethyl Alcohol < 10 mg/dL (0-10) 04/24/25 15:01 No radiology studies performed this visit Discharge Plan Discharge Patient Disposition: Admitted As Inpatient Clinical Impression: Acute on chronic renal failure, Suicidal ideation, Malignant hypertension Condition: Stable Coding Level of Care Code ED Clerk Stenographer for Chg Fwd Documented by User: Pablito Perry DO 04/24/25 18:21 HPI - Psych General: Chief Complaint: Psychiatric Symptoms Stated Complaint: SI/BACK PAIN Time Seen by Provider: 04/24/25 14:49 Related Data Home Medications ?Medication ?Instructions ?Recorded ?Confirmed quetiapine 100 mg tablet 100 mg PO BEDTIME 09/13/24 03/13/25 hydralazine 100 mg tablet 100 mg PO Q8H 01/06/25 03/13/25 isosorbide dinitrate 20 mg tablet 20 mg PO BID 01/06/25 03/13/25 naloxone 4 mg/actuation nasal See Rx Instructions .Route .COMPLEX 01/06/25 03/13/25 spray (Narcan) paroxetine HCl 20 mg tablet 20 mg PO DAILY 01/06/25 03/13/25 propranolol 20 mg tablet 20 mg PO Q8H 01/06/25 03/13/25 quetiapine 50 mg tablet 50 mg PO QAM 02/05/25 03/13/25 metoclopramide HCl 10 mg tablet 5 mg PO QID 03/13/25 03/13/25 nifedipine 30 mg tablet,extended 30 mg PO DAILY 03/13/25 03/13/25 release Previous Rx's ?Medication ?Instructions ?Recorded pregabalin 75 mg capsule (Lyrica) 75 mg PO BID #60 caps 01/30/25 cefdinir 300 mg capsule 300 mg PO BID #14 caps 03/13/25 Allergies Allergy/AdvReac Type Severity Reaction Status Date / Time morphine Allergy ALGY-Difficulty Verified 09/12/24 20:19 Breathing sulfamethoxazole (From Allergy ADR-Vomitin Verified 09/12/24 20:19 Bactrim) g trimethoprim (From Bactrim) Allergy ADR-Vomitin Verified 09/12/24 20:19 g PFSH ED PFSH: Medical History (Updated 04/24/25 @ 17:56 by Kami Adam MD) Acute kidney injury superimposed on CKD Type 1 diabetes mellitus with other skin ulcer Suicide attempt Urinary retention Septic prepatellar bursitis of left knee Chronic pain Hyperglycemia Anemia of chronic disease Insomnia GERD (gastroesophageal reflux disease) ALEJANDRO (generalized anxiety disorder) C. 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 CKD (chronic kidney disease) stage 2, GFR 60-89 ml/min baseline Cr is around 1.0 Diabetic foot ulcer s/p surgical intervention and eventual amputation Hyperlipidemia Coronary artery disease hx of stenting Diabetic gastroparesis Diabetes mellitus type 1 diagnosed age 15, history of peripheral neuropathy, gastroparesis and nephropathy Surgical History Hx of angioplasty H/O esophagogastroduodenoscopy (12/31/20) Bile reflux gastritis, grade B esophagitis Hx of cholecystectomy History of amputation of right forefoot Below-knee amputation of left lower extremity S/P percutaneous endoscopic gastrostomy (PEG) tube placement H/O exploratory laparotomy x 3 Previous section x 3 S/P coronary artery stent placement x 1 Family History Unknown Diabetes extensive, type II Other Congestive heart failure (CHF) Social History Smoking and tobacco/nicotine status: former use of tobacco/nicotine Quit status (tobacco/nicotine): has quit using Former quit date comment: 15 yrs ago Alcohol intake: former Former alcohol use details: 15 yrs ago Substance/Drug Use: current Substance/Drug use frequency: daily Household members: spouse Marital status: Current occupation: disabled Sexually active: Yes (1, ) Course Vital Signs: Vital signs: Vital Signs Temperature 98.1 F 04/24/25 14:52 Pulse Rate 103 H 04/24/25 17:50 Respiratory Rate 18 04/24/25 17:50 Blood Pressure 200/113 04/24/25 17:50 Pulse Oximetry 98 04/24/25 17:50 Oxygen Delivery Me thod Room Air 04/24/25 17:50 MDM - Psych Medical Decision Making Differential diagnosis: Patient with reported depression and suicidal ideation. concerns for infection, alcohol intoxication, cardiac issues or other medical problems prior to psychiatric admission. Workup: labwork, ekg ordered to evaluate the pathologies and to clear the patient medically prior to psychiatric admission EKG: Time 1527. Rate 83. Normal sinus rhythm, No ST-T changes, no ectopy, normal AZ & QRS intervals, This was reviewed and interpreted by myself the ER physician at 1535. Lab Review: Laboratory results were reviewed and interpreted by myself the emergency room physician. - EKG shows no ischemic changes. - Blood alcohol level is negative, -Tylenol and salicylate levels are negative. - Drug screen is negative - No signs of infection, urinalysis clear and white count is not elevated - Stable chronic anemia - Worsening renal function. BUN Cr up to 80/3.4 from a baseline cr of above 2 Consultation: I spoke Dr. Martinez at length about the patient. He says there is been concerns about admitting her here and that she might need to be sent to tertiary care center. At this point he is speaking with administration and determination for transfer versus admission here will be determined. She has been started on a Cardene drip secondary to malignant hypertension. She has received 20 of labetalol IV and 20 of hydralazine IV and pressure still remain 206/136. She also continues to states she is suicidal. Dr. Steinberg spoke with administration and the patient is able to be admitted medically and consulted with psychiatry. Assessment and plan: Malignant hypertension Acute on chronic renal failure renal failure Suicidal thoughts ?IV hydralazine, IV labetalol and now starting a Cardene drip -Admission to neuropsychiatric unit for continued evaluation and treatment. - All lab work was reviewed and interpreted personally by myself, the ER physician - Evaluation and treatment of this problem were appropriate in the emergency setting Patient checked out at shift change. Previous physician had spoken with hospitalist. Admission approved. She will go to ICU on nicardipine drip. 96-hour hold paperwork filled out. Affidavit signed. Cleared to go to ICU. Lab Data 04/24/25 15:01 04/24/25 15:01 Laboratory Results WBC 15.23 10^3/uL (3.29-11.43) H 04/24/25 15:01 RBC 3.11 10^6/uL (3.85-5.65) L 04/24/25 15:01 Hgb 9.30 g/dL (11.27-16.99) L 04/24/25 15:01 Hct 28.9 % (36-47) L 04/24/25 15:01 MCV 92.9 fl (85-98) 04/24/25 15:01 MCH 29.9 pg (27-33) 04/24/25 15:01 MCHC 32.2 g/dL (30-55) 04/24/25 15:01 RDW 14.8 % (12.1-15.1) 04/24/25 15:01 Plt Count 298 10^3/cmm (157-399) 04/24/25 15:01 MPV 9.0 fL (7.4-10.4) 04/24/25 15:01 Neut % (Auto) 85.2 % 04/24/25 15:01 Lymph % (Auto) 7.0 % 04/24/25 15:01 Bledsoe % (Auto) 4.9 % 04/24/25 15:01 Eos % (Auto) 1.8 % 04/24/25 15:01 Baso % (Auto) 0.4 % 04/24/25 15:01 Neut # (Auto) 12.99 10^3/uL (1.8-7.7) H 04/24/25 15:01 Lymph # (Auto) 1.1 10^3/uL (0.8-4.8) 04/24/25 15:01 Bledsoe # (Auto) 0.7 10^3/uL (0.2-0.9) 04/24/25 15:01 Eos # (Auto) 0.3 10^3/uL (0.0-0.8) 04/24/25 15:01 Baso # (Auto) 0.1 10^3/uL (0.0-0.1) 04/24/25 15:01 Nucleated RBC % (auto) 0 % 04/24/25 15:01 Nucleated RBCs # 0.0 /100WBC 04/24/25 15:01 Sodium 135 mmol/L (136-145) L 04/24/25 15:01 Potassium 4.5 mmol/L (3.5-5.1) 04/24/25 15:01 Chloride 99 mmol/L (98-107) 04/24/25 15:01 Carbon Dioxide 18 mmol/L (22-29) L 04/24/25 15:01 Anion Gap 22.5 (5-19) H 04/24/25 15:01 BUN 80 mg/dL (6-20) H 04/24/25 15:01 Creatinine 3.8 mg/dL (0.5-0.9) H 04/24/25 15:01 GFR Calculation 12.7 mL/min (90-130) L 04/24/25 15:01 Glucose 219 mg/dL (65-115) H 04/24/25 15:01 Calculated Osmolality 311 mOsm/kg (285-295) H 04/24/25 15:01 Calcium 9.2 mg/dL (8.5-10.5) 04/24/25 15:01 Total Bilirubin 0.3 mg/dL (0.15-1.2) 04/24/25 15:01 AST 36 U/L (0-32) H 04/24/25 15:01 ALT 22 U/L (0-33) 04/24/25 15:01 Alkaline Phosphatase 270 U/L (35-105) H 04/24/25 15:01 Total Protein 7.9 g/dL (6.6-8.7) 04/24/25 15:01 Albumin 4.3 g/dL (3.5-5.2) 04/24/25 15:01 Globulin 3.6 g/dL (1.3-4.6) 04/24/25 15:01 TSH 1.48 uIU/mL (0.27-4.20) 04/24/25 15:01 HCG, Qual Negative (Negative) 04/24/25 15:45 Urine Color Yellow (Yellow) 04/24/25 15:45 Urine Appearance Clear (CLEAR) 04/24/25 15:45 Urine pH 7.5 (5-7) 04/24/25 15:45 Ur Specific Entri[place] 1.013 (1.005-1.030) 04/24/25 15:45 Urine Protein 3+ (Negative) A 04/24/25 15:45 Urine Glucose (UA) Trace (Normal) H 04/24/25 15:45 Urine Ketones Negative (Negative) 04/24/25 15:45 Urine Blood 2+ (Negative) A 04/24/25 15:45 Urine Nitrate Negative (Negative) 04/24/25 15:45 Urine Bilirubin Negative (Negative) 04/24/25 15:45 Urine Urobilinogen 0.2 mg/dL (Negative) 04/24/25 15:45 Ur Leukocyte Esterase Negative (Negative) 04/24/25 15:45 Urine RBC 0-2 /hpf (0-2) 04/24/25 15:45 Urine WBC 0-5 /hpf (0-5) 04/24/25 15:45 Ur Squamous Epith Cells 0-5 /hpf (0-5) 04/24/25 15:45 Amorphous Sediment Not Reportable 04/24/25 15:45 Urine Bacteria None seen /hpf (NONE) 04/24/25 15:45 Hyaline Casts 0-4 /lpf H 04/24/25 15:45 Salicylates < 0.3 mg/dL (3-10) L 04/24/25 15:01 Urine Opiates Screen Negative ng/mL (Negative) 04/24/25 15:45 Acetaminophen < 5.0 ug/mL (10-30) L 04/24/25 15:01 Ur Barbiturates Screen Negative ng/mL (Negative) 04/24/25 15:45 Ur Phencyclidine Scrn Negative ng/mL (Negative) 04/24/25 15:45 Ur Amphetamines Screen Negative ng/mL (Negative) 04/24/25 15:45 U Benzodiazepines Scrn Negative ng/mL (Negative) 04/24/25 15:45 Urine Cocaine Screen Negative ng/mL (Negative) 04/24/25 15:45 U Marijuana (THC) Screen Positive ng/mL (Negative) H 04/24/25 15:45 Ethyl Alcohol < 10 mg/dL (0-10) 04/24/25 15:01 Critical Care Time Critical Care Time: Critical Care Time: Yes Total Critical Care Time: 40 Attestation: This case had a high probability of a clinically significant, sudden, or life threatening deterioration of this patient's condition which required my full and direct attention, intervention and personal management. Time is independent of any procedures performed. Discharge Plan Discharge Patient Disposition: Admitted As Inpatient Clinical Impression: Acute on chronic renal failure, Suicidal ideation, Malignant hypertension Condition: Stable Coding Level of Care Code ED Clerk Stenographer for Kim Mitchell
--- OUTSIDE RECORDS SUMMARY | 2025-04-24 14:55 | XMS_ITS | Clinical Summary ---
Author Organization [facility] Address [address] 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 02/04/20 24 Active ondansetron (ZOFRAN ODT) 4 mg Tablet, Rapid Dissolve Take 1 Tablet (4 mg) by mouth every 8 hours as needed for Nausea/Emesis. Dissolve tablet on top of tongue, then swallow with saliva. 20 Tablet 04/26/20 24 Active rOPINIRole (REQUIP) 1 mg tabletIndications :Restless leg syndrome Take 1 Tablet (1 mg) by mouth daily at bedtime. 90 Tablet 3 05/07/20 24 Active pantoprazole (PROTONIX) 40 mg Tablet, Delayed Release (E.C.) Take 40 mg by mouth daily. 06/03/20 24 Active hydrALAZINE (APRESOLINE) 100 mg Tablet tablet Take 1 Tablet (100 mg) by mouth every 8 hours. 90 Tablet 12/15/19 25 Active propranoloL (INDERAL) 20 mg tablet Take 1 Tablet (20 mg) by mouth every 8 hours. 90 Tablet 12/15/19 25 Active naloxone (NARCAN) 4 mg/spray [place], Non-Aerosol EMERGENCY USE ONLY: Administer 1 spray (4 mg) in one nostril one time. May repeat in alternating nostrils every 2-3 min until responsive or EMS arrives. 2 Each 3 02/09/20 25 Active PARoxetine HCl (PAXIL) 20 mg tabletIndications :ALEJANDRO (generalized anxiety disorder) Take 1 Tablet (20 mg) by mouth daily. 90 Tablet 3 02/09/20 25 Active sodium bicarbonate 650 mg tablet Take 1 Tablet (650 mg) by mouth 2 times daily. 30 Tablet 02/09/20 25 Active walker with wheels Face to Face completed within 6 months: yes Length of Need: 99 months 1 Each 02/09/20 25 Active oxyCODONE-acetami nophen (PERCOCET) 7.5-325 mg TabletIndications :Chronic bilateral low back pain without sciatica,Acute osteomyelitis of cervical spine (CMS/HCC) Take 1 Tablet by mouth every 6 hours as needed for Pain, Moderate. Max Daily Amount: 4 Tablets 12 Tablet 02/09/20 25 Active QUEtiapine (SEROquel) 100 mg tabletIndications :Bipolar disorder, current episode mixed, mild (CMS/HCC) Take 1 Tablet (100 mg) by mouth daily at bedtime. 90 Tablet 3 03/22/20 25 Active QUEtiapine (SEROquel) 50 mg tabletIndications :Bipolar disorder, current episode mixed, mild (CMS/HCC) Take 1 Tablet (50 mg) by mouth daily. 90 Tablet 03/22/20 25 Active cyclobenzaprine (FLEXERIL) 5 mg TabletIndications :Chronic bilateral low back pain without sciatica Take 1 Tablet (5 mg) by mouth 3 times daily as needed for Spasm. 270 Tablet 03/29/20 25 Active pregabalin (LYRICA) 75 mg Capsule Take 1 Capsule (75 mg) by mouth 2 times daily. 60 Capsule 03/29/20 25 Active atorvastatin (Lipitor) 10 mg tabletIndications :Type 2 diabetes mellitus with other specified complication, without long-term current use of insulin (CMS/HCC) Take 1 Tablet (10 mg) by mouth daily. 100 Tablet 03/29/20 25 Active metoclopramide HCl (REGLAN) 10 mg tablet Take 1 Tablet (10 mg) by mouth 4 times daily before meals and at bedtime. 360 Tablet 03/29/20 25 Active NIFEdipine (ADALAT CC) 30 mg Extended Release tabletIndications :Benign hypertension with stage 3b chronic kidney disease (CMS/HCC) Take 1 Tablet (30 mg) by mouth daily. 90 Tablet 3 03/29/20 25 Active metoclopramide HCl (REGLAN) 10 mg tablet Take 10 mg by mouth. TAKE 1/2 (ONE-HALF) TABLET BY MOUTH BEFORE MEAL(S) AND AT BEDTIME 03/02/20 025 Discontin ued(Reord er) pregabalin (LYRICA) 75 mg Capsule Take 1 Capsule by mouth 2 times daily. 01/31/20 025 Discontin ued(Reord er) NIFEdipine (ADALAT CC) 30 mg Extended Release tablet Take 1 Tablet by mouth daily. 03/02/20 025 Discontin ued(Reord er) Active Problems Problem Noted Date Diagnosed Date [...] 12/02/2024 Effusion of prepatellar bursa, right 12/01/2024 Severely aggressive behavior 11/30/2024 Pneumonia of left upper lobe due [...] osteoarthritis 12/10/2023 Precordial chest pain 11/16/2019 Old [place] (myocardial infarction) 11/11/2019 Takotsubo cardiomyopathy 11/11/2019 Hyponatremia 07/20/2019 Hypercalcemia 07/09/2019 Restless leg syndrome 05/02/2019 Normocytic anemia 05/02/2019 Hypomagnesemia 03/24/2019 Sacral decubitus ulcer 03/04/2019 Weight loss 03/04/2019 Dyslipidemia 03/03/2019 ASHD (arteriosclerotic heart disease) 01/19/2019 Esophagitis, Spalding grade C 10/03/2018 Hx of migraine headaches 09/27/2018 Essential hypertension 09/27/2018 Incidental pulmonary nodule, > 3mm and < 8mm rt lung 09/20/2018 Thrombocytosis 09/19/2018 Elevated alkaline phosphatase level 09/19/2018 Noncompliance with medication regimen 07/04/2018 Diabetic polyneuropathy asso ciated with type 2 diabetes mellitus 12/30/2017 H/O supraventricular tachycardia 12/18/2017 Overview (12/15/2020): Stella to be caffeine induced Hypokalemia Diabetic gastroparesis Intractable chronic migraine without aura and without status migrainosus Intractable cyclical vomiting with nausea Chronic abdominal pain Microcytic anemia Uncomplicated opioid dependence Current mild episode of tony r depressive disorder without prior episode Resolved Problems Problem Noted Date Diagnosed Date Resolved Date Acute metabolic encephalopathy 12/01/2024 03/29/2025 Acute low back pain 12/01/2024 03/29/20 25 Infection of above knee ampu tation stump of left lower extremity 11/30/2024 03/29/2025 UTI (urinary tract infection) 02/05/2024 03/12/2024 Diabetes mellitus 02/01/2024 03/12/2024 Acute renal failure 01/31/2024 03/12/20 24 Acute cystitis without hematuria 11/26/2019 03/12/2024 Protein-calorie malnutrition, moderate 11/16/2019 03/12/2024 Acute coronary syndrome with high troponin 11/11/2019 03/12/2024 Overview (12/16/2020): Added automatically from request for surgery [id number] History of below-knee amputa tion of left lower extremity 11/11/2019 03/12/2024 Abnormal grief reaction 07/19/201902/17 Cellulitis of left foot 07/12/201902/17 Acute opioid withdrawal 07/10/201902/17 Amputation of right great toe 07/05/2019 03/12/2024 Bacteremia 07/02/2019 03/12/2024 Acute hematogenous osteomyel itis of right foot 07/02/2019 03/12/2024 IFONA (acute kidney injury) 06/17/2019 Abscess of skin [...] perceptible pit (no findings) (11/11/19 1430) [employer] 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: Unable to assess(s/p cath ) (11/11/19 1430) Percentage of Energy: Other (see comments)(varriable per pt - hx gastroparesis) (11/11/19 1430) Percentage of Weight Loss: >7.5% in 3 months (severe)(estimate 15 lb actual loss, and 15 lb d/t BKA) (11/11/19 1430) Malnutrition Decision Dietitian Assessment: Moderate protein-calorie (11/11/19 [...] Encounters Date Type Department Care Team Description 04/14/2025 External Device Data STL ABSTRACTION Provider, Abstract 04/13/2025 External Device Data ST[facility] ABSTRACTION Provider, Abstract 04/07/2025 External Device Data [facility] ABSTRACTION Provider, Abstract 03/29/2025 11:20 AM CDT Office Visit [address] [phone] Monika Simpson MD Diabetic gastroparesis (CMS/HCC) (Primary Dx); Acute kidney injury superimposed on chronic kidney disease; Type 2 diabetes mellitus with other specified complication, without long-term current use of insulin (CMS/HCC); Benign hypertension with stage 3b chronic kidney disease (CMS/HCC); Chronic bilateral low back pain without sciatica 03/22/[address] [phone] Monika Simpson MD Bipolar disorder, current episode mixed, mild (CMS/HCC) 03/11/2025 Orders Only [facility] Health Information Management [place] [address] [place] [address] Provider, Abstract 03/11/[address] [phone] Monika Simpson MD 03/10/[address] [phone] Monika Simpson MD Needs Appointment 03/09/2025 External Device Data STL ABSTRACTION Provider, Abstract 02/09/2025 External Device Data STL ABSTRACTION Provider, Abstract 02/08/[address] [phone] Monika Simpson MD Medication Refill 02/05/2025 2:40 PM CDT - 02/08/2025 5:59 PM CDT Hospital Encounter [facility] 7H Burn Unit [address] [place] [phone] Garett Esteban MD Allam, Bala Sudhakar Reddy, MD Nerella, Ravi V., MD Acute kidney injury superimposed on chronic kidney disease Discharge Disposition: Home or Self Care 02/05/2025 Travel 02/04/[address] [phone] Monika Simpson MD Medication Refill from Last 3 Months Immunizations Immunization Administration [...] who hurts you emotionally and/or physically? 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 Gender Identity Not on file Sexual Orientation Not on file Last Filed Vital Signs Vital Sign Reading Time Taken Comments Blood Pressure 144/94 03/29/2025 11:21 AM CDT Pulse 101 03/29/2025 11:01 AM CDT Temperature 36.6 C (97.9 F) 03/29/2025 11:01 AM CDT Respiratory Rate 18 03/29/2025 11:0 1 AM CDT Oxygen Saturation 99% 03/29/2025 11: 01 AM CDT Inhaled Oxygen Concentration - - Weight 64.4 kg (141 lb 15.6 oz) 025 11:01 AM CDT Height 147.3 cm (4' 10 ) 03/29/2025 11: 01 AM CDT Body Mass Index 29.67 03/29/2025 11:01 AM CDT Plan of Treatment Upcoming Encounters Date Type Department Care Team (Late st Contact Info) Description 07/02/2025 11:00 AM CISCO CERTIFIED INTERNETWORK EXPERT Office Visit [facility] [address] [phone] Monika Simpson MD [address] [phone] Health Maintenance Due Date Last Done Comments DIABETES ANNUAL RETINAL EXAM 1996 HEPATITIS B VACCINES (1 of 3 - 19+ 3-dose series) 1997 Preventative Visit-Managed Medicaid 1997 HPV/Cotest (21-29) 1999 CERVICAL CANCER SCREENING 2008 HPV/Cotest (30-65) 2008 PAP SMEAR 2008 LDL CHOLESTEROL ANNUAL 11/10/2020 11/11/2019, 2017 FIT-DNA Q 3 years 2023 FIT/FOBT Q 1 year 2023 Flex Sig/CT Colonography Q 5 years 2023 INFLUENZA VACCINE (#1) 2025 , 06/02/2024, 07/03/2021, Additional history exists COVID-19 Vaccine (2024- season) 2025 09/19/2021 BREAST CANCER SCREENING 06/27/2025 Post poned from 2018 (Patient Refused) DIABETES HBA1C Q 6 MONTHS 08/29/20252024, 09/13/2024, 05/01/2024, Additional history exists DIABETES: A1C (Auto Order) 02/26/202602/26, 09/13/2024, 05/01/2024, Additional history exists DIABETES MICROALBUMIN ANNUAL SCREEN 03/29/2026 03/29/2025, 03/12/2024 COLORECTAL SCREENING 06/26/2029 06/26/2019, 06/26/2019, 06/26/2019 Colorectal Cancer Screening 06/26/2029 DTAP/TDAP/TD VACCINES (2 - Td or Tdap) 10/22/2031 10/21/2021 Medical Devices Implanted Type Area Family And Consumer Science Professor Device Identifier Shelf Expiration Date Model / Serial / Lot Cage T1 Centerpiece Stratosphere 13mm Sz D [id number] - [id number] Implanted:Qty: 1 on 12/05/2024 by Mike Diaz MD at [facility] Cage N/A: Neck [employer] SOFAMOR DANEK 02/21/2026 [id number] / / [id number] Powerline-03/06 Implanted:Qty: 1 on 03/06/2019 by Ovi Cohen MD Catheter Right: Chest [id number] 03/18/2021 [id number] / / [id number] 30cm Gj Feeding Tube-10/15/2018 Implanted:Qty: 1 on 10/15/2018 by Ovi Cohen MD Feeding Device Jejunum 03/19/2020 0250-18- 30 / / [id number] Hemostatic Surgicel 3x4in 1942 - [id number] Implanted:06/20 by Pelon Rose DPM (Quantity not on file) Hemostatic Left: Foot [employer] 02/15/20231942 / / [id number] Hemostatic Surgifoam 1gm 1977 - [id number] Implanted:Qty: 1 on 12/05/2024 by Mike Diaz MD at [facility] Hemostatic N/A: Neck J[employer] 09/03/20261977 [id number] Hemostatic Surgifoam 1gm 1977 - [id number] Implanted:Qty: 1 on 12/05/2024 by Mike Diaz MD at [facility] Hemostatic N/A: Neck J[employer] 09/03/20261977 913527 Hemostatic Surgifoam 1gm 1977 - [id number] Implanted:Qty: 1 on 12/05/2024 by Mike Diaz MD at [facility] Hemostatic N/A: Neck [employer] 09/03/20261977 981584 Plate Square Butte Vision Elite 52.5mm [id number] - [id number] Implanted:Qty: 1 on 12/05/2024 by Mike Diaz MD at [facility] Plate N/A: Neck [employer] [place] [id number] / / Emiliano Std 3.1v472zy 9977698 - [id number] Implanted:Qty: 1 on 12/05/2024 by Mike Daiz MD at [facility] Emiliano N/A: Neck [employer] SOFAMOR DANEK [id number] / / Connector Infinity Oc Lat Opn 10mm [id number] - [id number] Implanted:Qty: 1 on 12/05/2024 by Mike Diaz MD at [facility] Emiliano N/A: Neck [employer] SOFAMOR DANEK 03/24/2026 [id number] / / [id number] Connector Infinity Oc Lat Opn 10mm [id number] - [id number] Implanted:Qty: 1 on 12/05/2024 by Mike Diaz MD at [facility] Emiliano N/A: Neck [employer]- SOFAMOR DANEK 03/24/2026 [id number] / / [id number] Screw Stlnts Sd Va 4.0x14mm [id number] - [id number] Implanted:Qty: 1 on 12/05/2024 by Mike Diaz MD at [facility] Screw N/A: Neck [employer]K [id number] / / Screw Stlnts Sd Va 4.0x14mm [id number] - [id number] Implanted:Qty: 1 on 12/05/2024 by Mike Diaz MD at [facility] [place] Screw N/A: Neck [employer]K [id number] / / Screw Infinity 3.5x12mm Mas [id number] - [id number] Implanted:Qty: 1 on 12/05/2024 by Mike Diaz MD at [facility] [place] Screw N/A: Neck [employer] [id number] / / Screw Infinity 3.5x12mm Mas 1541189 - [id number] Implanted:Qty: 1 on 12/05/2024 by Mike Diaz MD at [facility] Screw N/A: Neck [employer] [id number] / / Screw Infinity 3.5x12mm Mas [id number] - [id number] Implanted:Qty: 1 on 12/05/2024 by Mike Diaz MD at [facility] Screw N/A: Neck [employer] [id number] / / Screw Infinity 3.5x12mm Mas 1499035 - [id number] Implanted:Qty: 1 on 12/05/2024 by Mike Diaz MD at [facility] Screw N/A: Neck [employer] [id number] / / Screw Infinity 3.5x12mm Mas 0012212 - [id number] Implanted:Qty: 1 on 12/05/2024 by Mike Diaz MD at [facility] Screw N/A: Neck [employer] [id number] / / Screw Infinity 3.5x12mm Mas 5954478 - [id number] Implanted:Qty: 1 on 12/05/2024 by Mike Diaz MD at [facility] Screw N/A: Neck [employer] [id number] / / Set Screw Infinity Oc M6 0567645 - [id number] Implanted:Qty: 1 on 12/05/2024 by Mike Diaz MD at [facility] Screw N/A: Neck [employer] [id number] / / Set Screw Infinity Oc M6 1091578 - [id number] Implanted:Qty: 1 on 12/05/2024 by Mike Diaz MD at [facility] Screw N/A: Neck [employer] [id number] / / Set Screw Infinity Oc M6 0418039 - [id number] Implanted:Qty: 1 on 12/05/2024 by Mike Diaz MD at [facility] Screw N/A: Neck [employer] [id number] / / Set Screw Infinity Oc M6 4967810 - [id number] Implanted:Qty: 1 on 12/05/2024 by Mike Diaz MD at [facility] Screw N/A: Neck [employer] [id number] / / Set Screw Infinity Oc M6 4734010 - [id number] Implanted:Qty: 1 on 12/05/2024 by Mike Diaz MD at [facility] Screw N/A: Neck [employer] [id number] / / Set Screw Infinity Oc M6 9942816 - [id number] Implanted:Qty: 1 on 12/05/2024 by Mike Diaz MD at [facility] Screw N/A: Neck [employer] [id number] / / Set Screw Infinity Oc M6 6908610 - [id number] Implanted:Qty: 1 on 12/05/2024 by Mike Diaz MD at [facility] Screw N/A: Neck [employer] [id number] / / Set Screw Infinity Oc M6 2203030 - [id number] Implanted:Qty: 1 on 12/05/2024 by Mike Diaz MD at [facility] [place] Screw N/A: Neck [employer] [id number] / / Set Screw Infinity Oc M6 5373266 - [id number] Implanted:Qty: 1 on 12/05/2024 by Mike Diaz MD at [facility] [place] Screw N/A: Neck [employer] [id number] / / Set Screw Infinity Oc M6 [id number] - [id number] Implanted:Qty: 1 on 12/05/2024 by Mike Diaz MD at [facility] [place] Screw N/A: Neck [employer] [id number] / / Set Screw Infinity Oc M6 1166992 - [id number] Implanted:Qty: 1 on 12/05/2024 by Mike Diaz MD at [facility] Screw N/A: Neck [employer] [id number] / / Set Screw Infinity Oc M6 1815018 - [id number] Implanted:Qty: 1 on 12/05/2024 by Mike Diaz MD at [facility] [place] Screw N/A: Neck [employer] [id number] / / Screw Infinity 4.5x24mm Mas 1852914 - [id number] Implanted:Qty: 1 on 12/05/2024 by Mike Diaz MD at [facility] [place] Screw N/A: Neck [employer]ANEK 03/24/2026 [id number] / / [id number] Screw Infinity 4.5x24mm Mas 4799056 - [id number] Implanted:Qty: 1 on 12/05/2024 by Mike Diaz MD at [facility] Screw N/A: Neck [employer]ANE[employer] 03/24/2026 [id number] / / [id number] Screw Infinity 4.5x24mm Mas [id number] - [id number] Implanted:Qty: 1 on 12/05/2024 by Mike Diaz MD at [facility] Screw N/A: Neck [employer]ANEK 03/24/2026 [id number] / / [id number] Screw Infinity 4.5x24mm Mas 5993956 - [id number] Implanted:Qty: 1 on 12/05/2024 by Mike Diaz MD at [facility] Screw N/A: Neck [employer]ANE[employer] 03/24/2026 [id number] / / [id number] Screw Stlnts Sd Va 4.0x14mm 8508594 - [id number] Implanted:Qty: 1 on 12/05/2024 by Mike Diaz MD at [facility] Screw N/A: Neck [employer]ANEK [id number] / / Screw Stlnts Sd Va 4.0x14mm 2579059 - [id number] Implanted:Qty: 1 on 12/05/2024 by Mike Diaz MD at [facility] Screw N/A: Neck [employer] [id number] / / Paste Bone Dbm Plus 1ml [id number] - [id number] Implanted:Qty: 1 on 12/05/2024 by Mike Diaz MD at [facility] Tissue N/A: Neck [employer] - SPINALGRAFT 04/15/2026 [id number] / [id number] / Paste Bone Dbm Plus 5ml [id number] - [id number] Implanted:Qty: 1 on 12/05/2024 by Mike Diaz MD at [facility] Tissue N/A: Neck [employer] - SPINALGRAFT 06/19/2026 [id number] / [id number] / Paste Bone Dbm Plus 5ml [id number] - [id number] Implanted:Qty: 1 on 12/05/2024 by Mike Diaz MD at [facility] Tissue N/A: Neck [employer] - SPINALGRAFT 04/02/2026 [id number] / [id number] / Explanted Type Area Family And Consumer Science Professor Device Identifier Shelf Expiration Date Model / Serial / Lot 16fr 30cm Richy Gastro-Jejuna l Feeding Tube- 9 Implanted:Qty : 1 on 10/08/2018 by Luis Alberto Fields MD Explanted:Qty : 1 on 10/15/2018 by Ovi Cohen MD Feeding Device N/A: Abdomen 01/18/2020 / / [id number] Set Screw Infinity Oc M6 [id number] - [id number] Explanted:Qty : 1 on 12/05/2024 by Mike Diaz MD at [facility] Screw N/A: Neck [employer]ANEK [id number] / / Procedures Procedure Name Priority Date/Time Associated Diagnosis Comments MICROALBUMIN/CREATININ E RATIO, RANDOM UR Routine 03/29/2025 11:28 AM CDT Type 2 diabetes mellitus with other specified complication, without long-term current use of insulin ([facility]) BASIC METABOLIC PANEL Routine 03/02/2025 10:26 AM [...] METABOLIC PANEL Stat 02/05/2025 4:07 PM CDT LIPID PANEL Routine 11/11/2019 9:47 AM CDT COLONOSCOPY REPORT 06/26/2019 4: 22 PM CISCO CERTIFIED INTERNETWORK EXPERT from Last 3 Months or Most Recently Relevant to Health Maintenance Results * (ABNORMAL) MICROALBUMIN/CREATININE RATIO, RANDOM UR (03/29/2025 11:28 AM CDT) CREATININE, URINE 61 20 - 275 mg/dL [facility] ALBUMIN, URINE 225.5 See Note: mg/dL [facility] Comment: Reference Range: Reference Range Not established Verified by repeat analysis. ALB/CREAT RATIO, URINE 3697(H) <30 mg/g creat [facility] Comment: [...] within a diagnostic category. Test Performed at: [facility] [address] [facility] [place] [address] Diego Lacy MD Urine URINE SPECIMEN OBTAINED BY CLEAN CATCH PROCEDURE / Unknown 03/29/2025 11:28 AM CDT 03/30/2025 2:39 AM CDT us Monika Simpson MD URINE ORDERABLES Final Res ult [facility] [phone] [facility] [address] [place] [address] * BASIC METABOLIC PANEL (03/02/2025 10:26 AM CDT) Only the most recent of7 resultswithin the time period is included. Blood Abstract Provider CHEMISTRY ORDERABLES Final Res ult * COMPREHENSIVE METABOLIC PANEL (02/27/2025 10:28 AM CDT) Only the most recent of3 resultswithin the time period is included. Blood Abstract Provider CHEMISTRY ORDERABLES Final Res ult * HEMOGLOBIN A1C (02/26/2025) Pathologist [facility] [place] ABSTRACTED HGB A1C 5.4 % Blood 02/26/2025 us Abstract Provider CHEMISTRY ORDERABLES Final Res ult * TELEMETRY REPORT (02/10/2025 2:12 PM CDT) us Provider Scanning ECG ORDERABLES Final Result * (ABNORMAL) POC GLUCOSE (02/08/2025 11:37 AM CDT) Only the most recent of9 resultswithin the time period is included. GLUCOSE POC 122(H) 74 - 99 mg/dL 02/08/2025 11:37 AM CDT [facility] SPECIMEN SOURCE, GLUCOSE POC Capillary 02/08/2025 11:37 AM CDT [facility] Blood, whole 02/08/2025 11:3 7 AM CDT 02/08/2025 11:45 AM CDT Arjun Olivares MD POINT OF CARE TESTI NG Final Result Performing Organization Address [facility] Co de Phone Number [facility] CLIA # [id number] [address] [address] [place] [address] * (ABNORMAL) HEMOGLOBIN AND HEMATOCRIT (02/08/2025 10:16 AM CDT) Pathologist [facility] [place] HEMOGLOBIN 7.3(L) 12.0 - 16.0 g/dL 02/08/2025 10:36 AM CDT [facility] HEMATOCRIT 24.0(L) 36.0 - 46.0 % 02/08/2025 10:36 AM CDT [facility] Blood Venipuncture / Unknown 02/08/2025 10:16 AM CDT 02/08/2025 10:28 AM CDT Arjun Olivares MD HEMATOLOGY ORDERABL ES Final Result Performing Organization Address [facility] Co de Phone Number [facility] CLIA # [id number] [facility] [address] * (ABNORMAL) CBC WITHOUT DIFFERENTIAL (02/08/2025 6:22 AM CDT) Only the most recent of4 resultswithin the time period is included. WBC 5.1 4.5 - 11.0 K/uL 02/08/2025 6:39 AM CDT [facility] RBC 2.30(L) 4.20 - 5.40 M/uL 02/08/2025 6:39 AM CDT [facility] HEMOGLOBIN 7.0(L) 12.0 - 16.0 g/dL 02/08/2025 6:39 AM CDT [facility] HEMATOCRIT 22.1(L) 36.0 - 46.0 % 02/08/2025 6:39 AM T [facility] MCV 96.1 84.0 - 103.0 fL 02/08/2025 6:39 AM CDT [facility] MCH 30.4 27.0 - 34.0 pg 02/08/2025 6:39 AM CDT [facility] MCHC 31.7 30.0 - 35.0 g/dL 02/08/2025 6:39 AM CDT [facility] PLATELETS 191 140 - 440 K/uL 02/08/2025 6:39 AM T [facility] MPV 9.0 8.9 - 12.8 fL 02/08/2025 6:39 AM [facility] RDW 14.6(H) 11.0 - 14.5 % 02/08/2025 6:39 AM T [facility] RDW-STDEV 51.5 37.0 - 54.0 fL 02/08/2025 6:39 AM T [facility] Blood Venipuncture / Unknown 02/08/2025 6:22 AM CDT 02/08/2025 6:32 AM CDT us Jona Gaytan MD HEMATOLOGY ORDERABLES Final R esult [facility] CLIA # [id number] [address] [place] [id number] * US RENAL AND BLADDER (02/06/2025 12:32 [...] disease. 2. No hydronephrosis or perinephric fluid. Arjun Olivares MD ORDERABLES Fin al Result * (ABNORMAL) CBC WITH DIFFERENTIAL (02/05/2025 5:00 PM CDT) WBC 11.5(H) 4.5 - 11.0 K/uL 02/05/2025 5:23 PM CDT [facility] RBC 3.87(L) 4.20 - 5.40 M/uL 02/05/2025 5:23 PM CDT [facility] HEMOGLOBIN 11.6(L) 12.0 - 16.0 g/dL 02/05/2025 5:23 PM [facility] HEMATOCRIT 36.3 36.0 - 46.0 % 02/05/2025 5:23 PM [facility] MCV 93.8 84.0 - 103.0 fL 02/05/2025 5:23 PM [facility] MCH 30.0 27.0 - 34.0 pg 02/05/2025 5:23 PM [facility] [facility] MCHC 32.0 30.0 - 35.0 g/dL 02/05/2025 5:23 PM [facility] PLATELETS 351 140 - 440 K/uL 02/05/2025 5:23 PM [facility] MPV 8.8(L) 8.9 - 12.8 fL 02/05/2025 5:23 PM [facility] RDW 14.9(H) 11.0 - 14.5 % 02/05/2025 5:23 PM [facility] RDW-STDEV 51.4 37.0 - 54.0 fL 02/05/2025 5:23 PM [facility] NEUTROPHILS 86(H) 42 - 75 % 02/05/2025 5:23 PM [facility] LYMPHOCYTES 7(L) 24 - 44 % 02/05/2025 5:23 PM [facility] MONOCYTES 6 2 - 10 % 02/05/2025 5:23 PM [facility] EOSINOPHILS 0 0 - 7 % 02/05/2025 5:23 PM CDT [facility] BASOPHILS 0 0 - 1 % 02/05/2025 5:23 PM CDT [facility] IMMATURE GRANULOCYTES 1 0 - 2 % 02/05/2025 5:23 PM CDT [facility] NEUTROPHIL ABSOLUTE 9.91(H) 2.00 - 8.00 K/uL 02/05/2025 5:23 PM CDT [facility] LYMPHOCYTE ABSOLUTE 0.85(L) 1.20 - 4.00 K/uL 02/05/2025 5:23 PM CDT [facility] MONOCYTE ABSOLUTE 0.65(H) 0.10 - 0.60 K/uL 02/05/2025 5:23 PM CDT [facility] EOSINOPHIL ABSOLUTE 0.00 0.00 - 0.70 K/uL 02/05/2025 5:23 PM CDT [facility] BASOPHILS ABSOLUTE 0.03 0.00 - 0.20 K/uL 02/05/2025 5:23 PM CDT [facility] IMMATURE GRANULOCYTES ABSOLUTE 0.06 0.00 - 0.10 K/uL 02/05/2025 5:23 PM CDT [facility] SMEAR REVIEWED: NA - Not Applicable 02/05/2025 5:23 PM [facility] Blood Venipuncture / Unknown 02/05/2025 5:00 PM CDT 02/05/2025 5:15 PM CDT us Garett Esteban MD HEMATOLOGY ORDERABLES Final Result [facility] CLIA # [id number] [address] [place] [address] [place] [address] * PTT (02/05/2025 5:00 PM CDT) PTT 27.6 24.8 - 37.2 seconds 02/05/2025 5:41 PM CDT [facility] Blood Venipuncture / Unknown 02/05/2025 5:00 PM CDT 02/05/2025 5:15 PM CDT [facility] - 02/05/2025 5:41 PM CDT Therapeutic Range: Hi-level PE/DVT heparin protocol 80.1 - 95.0 sec Lo-level PE/DVT heparin protocol 70.1 - 85.0 sec Cardiac Heparin Protocol 70.1 - 100.0 sec Garett Esteban MD HEMATOLOGY ORDERABLES Final Result [facility] CLNV # [id number] [address] [place] [address] * (ABNORMAL) PROTIME-INR (02/05/2025 5:00 PM CDT) PROTIME 15.2(H) 12.7 - 14.9 Seconds 02/05/2025 5:41 PM CDT [facility] INR 1.1 0.8 - 1.2 02/05/2025 5:41 PM CDT [facility] Blood Venipuncture / Unknown 02/05/2025 5:00 PM CDT 02/05/2025 5:15 PM CDT [facility] - 02/05/2025 5:41 PM CDT Expected Values for INR: DVT/PE Goal INR 2.5; range 2.0 - 3.0 Valve Replacement Tissue Goal INR 2.5; range 2.0 - 3.0 Valve Replacement Mechanical Goal INR 3.0; range 2.5 - 3.5 POST-IL Goal INR 2.5; range 2.0 - 3.0 or Goal INR 3.0; range 2.5 - 3.5 Atrial Fibrillation Goal INR 2.5; range 2.0 - 3.0 Ischemic Stroke Goal INR 2.5; range 2.0 - 3.0 us Garett Esteban MD HEMATOLOGY ORDERABLES Final Result Performing Organization Address [facility] Co de Phone Number [facility] CLIA # [id number] [address] [address] [place] [address] * (ABNORMAL) LIPID PANEL (11/11/2019 9:47 AM CDT) CHOLESTEROL 133 <200 mg/dL 11/12/2019 12:47 AM CDT [facility] TRIGLYCERIDE 165(H) <150 mg/dL 11/12/2019 12:47 AM CDT [facility] HDL 45 40 - 59 mg/dL 11/12/2019 12:47 AM CDT [facility] LDL CALCULATED 55 <100 mg/dL 11/12/2019 12:47 AM CDT [facility] NON-HDL CHOLESTEROL 88 <130 mg/dL 11/12/2019 12:47 AM T [facility] Blood Venipuncture / Unknown 11/11/2019 9:47 AM CDT 11/11/2019 9:52 AM CDT Narrative [facility] - 11/12/2019 12:47 AM CDT Fasting [...] Reference Ranges for Lipid Panels (NCEP/AMA) . us Rubia Macias MD CHEMISTRY ORDERABLES Final R esult [facility] CLIA# [id number] [address] [place] [address] [facility] CLIA# [id number] [address] [place] [address] * COLONOSCOPY REPORT (06/26/2019 4:22 PM CISCO CERTIFIED INTERNETWORK EXPERT) Adryan Ibarra MD GI PROCEDURE ORDERABL ES Final Result from Last 3 Months or Most Recently Relevant to Health Maintenance Insurance [place] * Guarantor: MELISSA TATE Account Type Relation to Patient Date of Phone Billing Address Personal/Family [address] [place] [id number] RX INFOCROSSING Medicaid RX BROOKS PLANS (INTERNAL) [facility] Internal Plans [place]ICAID [place] Advance Directives For more information, please contact: [phone] * Full Code (Latest Code Status on [...] 11:29 PM 02/11/2024 7:10 PM Care Teams Steam Cleaning Machine Operator Relationship Specialty Start Date End Date Monika Simpson MD [address] [address] PCP - General Family Practice 03/12/24
--- OUTSIDE RECORDS SUMMARY | 2025-04-24 14:55 | XMS_ITS | Clinical Summary ---
Author Organization [facility] Address [address] [place] [address] Care Team Providers Care Instructor Dramatic Arts Name Role Phone Kentrell Herring MD Primary [...] . 100 Each 3 07/31/2019 5:32 PM [employer] 9 Active insulin lispro (HumaLOG) 100 unit/mL [...] units 10 mL 3 07/31/2019 5:32 PM COTTON FARMER 9 Active Insulin [place], Disposable, 31 gauge x 5/16 Needle Use as directed to administer insulin. 100 Each 07/31/2019 5:32 PM [employer] 9 Active aspirin (ECOTRIN EC) 81 mg Tablet, Delayed Release (E.C.) Take 1 Tablet (81 mg) by mouth daily. 30 Tablet 3 9 Active clopidogreL (PLAVIX) 75 mg Tablet Take 1 Tablet (75 mg) by mouth daily. 30 Tablet 3 07/31/2019 5:32 PM [employer] 9 Active FLUoxetine (PROzac) 20 mg capsule Take 1 Capsule (20 mg) by mouth daily. 30 Capsule 3 07/31/2019 5:32 PM [facility] 9 Active hydrOXYzine HCL (ATARAX) 50 mg tablet Take 1 Tablet (50 mg) by mouth every 6 hours as needed for Anxiety, Insomnia, Nausea/Emesis or pain. 90 Tablet 1 07/31/2019 5:32 PM [employer] 9 Active ferrous sulfate 325 mg (65 mg iron) tablet Take 1 Tablet (325 mg) by mouth 2 times daily. 30 Tablet 3 07/31/2019 5:32 PM [facility] 9 Active ascorbic acid, vitamin C, (VITAMIN [...] administer insulin. 100 Each 07/31/2019 5:32 PM [facility] 9 Active Blood-Glucose Meter Use as directed to check blood glucose levels 1 Each 07/31/2019 5:32 PM [facility] 9 Active lancets 30 gauge To be used to check blood glucose levels 100 Each 07/31/2019 5:32 PM [facility] 9 Active carvediloL (COREG) 3.125 mg tablet [...] CDT 0 Active naloxone (NARCAN) 4 mg/spray [place], Non-Aerosol Administer 1 spray (4 mg) in [...] pain 11/16/2019 Protein-calorie malnutrition, moderate 0 Old DC (myocardial infarction) 11/11/2019 Acute coronary syndrome with high troponin 11/10 Overview (11/11/2019): Added automatically from request for surgery [id number] History of below-knee amputation of left lower [...] acidosis 11/29/2018 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 Esophagitis, [place] grade C 10/03/2018 Moderate protein-calorie malnutrition 09/30/2018 Overview (11/11/2019): ASPEN Malnutrition Assessment and Findings Subcutaneous Fat Loss Assessment: Moderate fat loss (11/11/19 143) Muscle Wasting Assessment: Severe (11/11/19 143) Edema: Normal contour with a barely perceptible pit (no findings) (11/11/19 1430) Hand Retention Specialist: Unable to assess(s/p cath ) (11/11/19 143) [...] 09/2017 H/O supraventricular tachycardia 12/18/2017 Overview (12/18/2017): [place] to be caffeine induced Intractable vomiting with [...] on file 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 Gender Identity Not on file Sexual Orientation [...] 06/26/2029 06/26/2019, 06/26/20 Colorectal Cancer Screening 06/26/2029 Medical Devices Implanted Type Area Brokerage Clerk Device Identifier Shelf Expiration Date Model / Serial / Lot Powerline-02/16 Implanted:Qty : 1 on 03/06/2019 by Ovi Cohen MD Catheter Right: Chest [id number] 03/18/2021 [id number] / / [id number] 18f 30cm Gj Feeding Tube- 9 Implanted:Qty : 1 on 10/15/2018 by Ovi Cohen MD Feeding Device Jejunum 03/19/20200-18-3 0 / / [id number] Hemostatic Surgicel 3x4in 1945 - [id number] Implanted: by Pelon Rose DPM at [facility] (Quantity not on file) Hemostatic Left: Foot [employer] 02/15/2023 1945 / / [id number] Explanted Type Area Brokerage Clerk Device Identifier Shelf Expiration Date Model / Serial / Lot 16fr 30cm Richy Gastro-Jejuna l Feeding Tube- 9 Implanted:Qty : 1 on 10/08/2018 by Luis Alberto Fields MD Explanted:Qty : 1 on 10/15/2018 by Ovi Cohen MD Feeding Device N/A: Abdomen 01/18/20200-16-3 0 / / [id number] Procedures Procedure Name Priority Date/Time Associated Diagnosis Comments LIPID PANEL Routine 11/11/2019 9:47 AM CDT HEMOGLOBIN A1C Routine 11/11/2019 5:10 AM CDT COLONOSCOPY REPORT 06/26/2019 4: 22 PM COTTON FARMER from Last 3 Months or Most Recently Relevant to Health Maintenance Results * (ABNORMAL) LIPID PANEL (11/11/2019 9:47 AM CDT) CHOLESTEROL 133 <200 mg/dL 11/12/2019 12:47 AM CDT [facility] [employer] [facility] TRIGLYCERIDE 165(H) <150 mg/dL 11/12/2019 12:47 AM CDT [facility] HDL 45 40 - 59 mg/dL 11/12/2019 12:47 AM CDT [facility] LDL CALCULATED 55 <100 mg/dL 11/12/2019 12:47 AM CDT [facility] NON-HDL CHOLESTEROL 88 <130 mg/dL 11/12/2019 12:47 AM T [facility] Blood Venipuncture / Unknown 11/11/2019 9:47 AM CDT 11/11/2019 9:52 AM CDT Narrative [facility] [employer] [facility] - 11/12/2019 12:47 AM CDT TOTAL CHOLESTEROL [...] ORDERABLES Final R esult Performing Organization Address [facility] Co de Phone Number [facility] CLIA# [id number] Critical access hospital[address] [place] [address] * (ABNORMAL) HEMOGLOBIN A1C (11/11/2019 5:10 AM CDT) HEMOGLOBIN A1C 8.9(H) <=5.6 % 11/11/2019 12:26 PM CDT [facility] EST. AVG GLUCOSE, A1C 209 mg/dL 11/11/2019 12:26 PM CDT [facility] Blood Venipuncture / Unknown 11/11/2019 5:10 AM CDT 11/11/2019 5:12 AM CDT Narrative [facility] - 11/11/2019 12:26 PM CDT HGB A1C INTERPRETATION NORMAL: <5.7% PRE-DIABETES: 5.7 - 6.4% DIABETES: 6.5% OR GREATER Rubia Macias MD CHEMISTRY ORDERABLES Final R esult Performing Organization Address [facility] Co de Phone Number [facility] CLIA# [id number] [address] [place] [address] * COLONOSCOPY REPORT (06/26/2019 4:22 PM COTTON FARMER) Narrative Procedure Note Adryan Ibarra MD - 06/26/2019 4:21 PM CST [facility] GI Patient Name: Cherrie Solomon Procedure Date: 06/26/2019 Date of : 1980 Admit Type: Outpatient Age: 39 Attending MD: Adryan Ibarra , Procedure: Colonoscopy Indications: Gastrointestinal occult blood loss Providers: Adryan Ibarra Referring MD: Medicines: Monitored Anesthesia Care Complications: No [...] answered and informed consent was obtained. - [place] Protocol: - Pre-procedure Verification: Prior to the [...] PM Scope Out: 4:09:59 PM [address] [place] Adryan Ibarra MD GI PROCEDURE ORDERABL ES Final Result from Last 3 Months or Most Recently Relevant to Health Maintenance Insurance RX BROOKS PLANS (INTERNAL) [facility] Internal Plans RX INFOCROSSING Medicaid [place] Advance Directives For more information, please contact: [phone] * Full Code (Latest Code Status on [...] 7:14 AM 07/31/2019 8:10 PM Care Teams Instructor Dramatic Arts Relationship Specialty Start Date End Date Kentrell Herring MD [address] [place] [facility] [place] [address] PCP - General Family Practice 09/19/18
--- OUTSIDE RECORDS SUMMARY | 2025-04-24 14:55 | XMS_ITS | Encounter Summary ---
Author Organization [facility] Address 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 Records in media. * Telephone Encounter - Lelia Alvarez - 03/11/2025 5:31 PM CDT Left V.M. for patient to call office and schedule [facility] HFU appointment for week of March 15-March 19. * Telephone Encounter - Lelia Alvarez - 03/11/2025 5:27 PM CDT Give her first available next week, per Dr. Simpson * Telephone Encounter - Lelia Alvarez - 03/10/2025 3:27 PM CDT Sent ITS [facility] message to Dr. Simpson and Anai Castellanos to see if able to do HFU on Thursday 03/15 * Telephone Encounter - Tish Baum - 03/10/2025 1:34 PM CDT Copied from [facility] #[id number]. Topic: CPA Information Request - Appointment/Location Information >> Mar 10, 2025 1:33 PM Tish Laird wrote: Caller is requesting the following information: Other Caller Notes (Not Required): The patient called to schedule a hospital follow up appointment. I made a scheduling error. I called the patient and asked her to call us back to reschedule it. She was discharged from [facility] on 03/02/2025. The soonest she can come in is 03/12/2025. Please schedule the hospital follow up and advise of the SONIDO to be signed. Ask if caller would like to also receive a link in [facility] to view the details for the upcoming appointments. Would caller like [facility] message with link to appointment details? No Patient Access Instructions 1. Link appointment in attachment section below. 2. Select [employer] and [employer] CRM. documented in this encounter Plan of Treatment Upcoming Encounters Date Type Department Care Team (Late st Contact Info) Description 07/02/2025 11:00 AM TRACTOR SWEEPER DRIVER Office Visit [address] [phone] Monika Simpson MD [address] [place] [phone] documented as of this encounter Visit Diagnoses Not on filedocumented in this encounter Additional Health Concerns Assessment Noted Time PHQ-9 Depression Total Score: 2 03/12/20 24 8:33 AM CDT documented as of this encounter Care Teams Women'S Swim Coach Relationship Specialty Start Date End Date Monika Simpson MD [address] [place] [phone] PCP - General Family Practice 03/12/24 documented as of this encounter
--- OUTSIDE RECORDS SUMMARY | 2025-04-24 14:55 | XMS_ITS | Encounter Summary ---
Author Organization [facility] Address [address] [place] [address] Care Team Providers Care Manager Intensive Care Unit Name Role Phone Kentrell Herring MD Primary Care Provider + Encounter Details Date Type Department Care Team (Latest Contact Info) Description 02/23/2003 Outpatient Historical [facility] OBSERVATION-ACCIDENT NEC (Primary Dx) Social History Tobacco Use Types Packs/Day Years Used Date Smoking Tobacco: Never Assessed Comments Unknown Sex and Gender Information Value Date Recorded Sex Assigned at Not on file Legal Sex Female 3:09 AM CLAIM REP Gender Identity Not on file Sexual Orientation Not on file documented as of this encounter Plan of Treatment Not on file documented as of this encounter Visit Diagnoses Diagnosis Observation following other accident- Primary documented in this encounter Care Teams Manager Intensive Care Unit Relationship Specialty Start Date End Date Kentrell Herring MD [address] [place] [address] PCP - General Family Practice 09/19/18 documented as of this encounter
--- OUTSIDE RECORDS SUMMARY | 2025-04-24 14:55 | XMS_ITS | Clinical Summary ---
Author Organization [facility] Address [address] [place] [address] Phone Care Team Providers Care Mainframe Systems Engineer Name Role Phone Manjarrez Imelda Trinh [facility] Primary Care Provider [phone] Allergies Active Allergy Reactions Criticality Noted Date [...] Recorded Patient Health Questionnaire-2 Score 2 11/08/2023 [facility] - [facility] Health Answer Date Recorde [...] COVID-19 Vaccine (1 - 2023-2 5 season) 2025 Influenza Vaccine (#1) 2025 , 07/02/2019 Pneumococcal [...] patient's age to complete this topic Insurance [facility] Care Teams Mainframe Systems Engineer Relationship Specialty Start Date End Date Imelda Manjarrez FNP [address] [facility] [place] [address] PCP - General Family Medicine 11/08/23
--- OUTSIDE RECORDS SUMMARY | 2025-04-24 14:55 | XMS_ITS | Encounter Summary ---
Author Organization [facility] Address [address] [place] [address] Care Team Providers Care Riding Double Name Role Phone Kentrell Herring MD Primary Care Provider + Encounter Details Date Type Department Care Team (Late st Contact Info) Description 01/29/2007 Emergency [facility] Emergency Department [address] 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 Gender Identity Not on file Sexual Orientation [...] MD URINE ORDERABLES Edited Performing Organization Address [facility] de Phone Number INTERFACE SYSTEM Refer to clinic/hospital department * (ABNORMAL) ACETONE QUALITATIVE, URINE (01/29/2007 7:36 PM CDT) KETONES UA Large(A) Negative INTERFACE SYSTEM 01/29/2007 7:36 PM CDT Baljit Farrell MD URINE ORDERABLES Edited Performing Organization Address City/[facility]/ZIP Co de Phone Number INTERFACE SYSTEM Refer to clinic/hospital department * (ABNORMAL) GLUCOSE URINALYSIS, QUALITATIVE (01/29/2007 7:36 PM CDT) GLUCOSE, URINE 500 mg/dl(A) Negative INTERFACE SYSTEM 01/29/2007 7:36 PM CDT Baljit Farrell MD URINE ORDERABLES Edited Performing Organization Address City/[facility] Co de Phone Number INTERFACE SYSTEM Refer [...] HEMATOLOGY ORDERABLES Jc marcela Performing Organization Address City/[facility] de Phone Number INTERFACE SYSTEM Refer to clinic/hospital department * LIPASE (01/29/2007 6:53 PM CDT) LIPASE 24 6 - 51 U/L INTERFACE SYSTEM Comment: As of 05 the [facility] has changed testing methods. The new reference range is 6-51 The old referance range was 23-300 01/29/2007 6:53 PM CDT Baljit Farrell MD CHEMISTRY ORDERABLES Edit ed Performing Organization Address [facility] Phone Number INTERFACE SYSTEM Refer to clinic/hospital department * (ABNORMAL) BETA HYDROXYBUTYRATE (01/29/2007 6:53 PM CDT) BETA HYDROXYBUTYRATE 1.22(H) 0.00 - 0.25 mmol/l INTERFACE SYSTEM 01/29/2007 6:53 PM CDT Baljit Farrell MD CHEMISTRY ORDERABLES Edit ed Performing Organization Address [facility] de Phone Number INTERFACE SYSTEM Refer to clinic/hospital department * BETA HCG QUANTITATIVE, BLOOD (01/29/2007 6:53 PM CDT) CHORIONIC GONADOTROPIN, TOTAL <2.0 0.0 - 10.0 mlU/ML INTERFACE SYSTEM Comment: Total HCG levels between 10 mIU/mL and 25 mIU/mL may be indicative of early but need to be correlated with other clinical findings. HCG ranges during normal , as reported by the silk top hat body maker, are summarized as follows: Gestational Age Expected [...] CHEMISTRY ORDERABLES Edit ed Performing Organization Address City/[facility] Co de Phone Number INTERFACE SYSTEM Refer to clinic/hospital department * (ABNORMAL) POC GLUCOSE (01/29/2007 6:49 PM CDT) GLUCOSE POC 273(H) 60 - 100 mg/dL INTERFACE SYSTEM 01/29/2007 6:49 PM CDT us Baljit Farrell MD POINT OF CARE TESTING Jc marcela Performing Organization Address [facility] de Phone Number INTERFACE SYSTEM Refer to clinic/hospital department documented in this encounter Visit Diagnoses Diagnosis Acute pyelonephritis without lesion of renal medullary necrosis- Primary documented in this encounter Care Teams Riding Double Relationship Specialty Start Date End Date Kentrell Herring MD [address] [place] [address] PCP - General Family Practice 09/19/18 documented as of this encounter
--- OUTSIDE RECORDS SUMMARY | 2025-04-24 14:55 | XMS_ITS | Encounter Summary ---
Author Organization [facility] Address [address] [place] [address] Care Team Providers Care Energy Engineer Name Role Phone Kentrell Herring MD Primary Care Provider + Encounter Details Date Type Department Care Team (Late st Contact Info) Description 12/01/2007 Outpatient Historical [facility] Pepe Jr., Charles Clancy MD [address] [place] [phone] Social History Tobacco Use Types Packs/Day Years Used Date Smoking Tobacco: Never Assessed Comments Unknown Sex and Gender Information Value Date Recorded Sex Assigned at Not on file Legal Sex Female 3:09 AM ORACLE WMS CONSULTANT Gender Identity Not on file Sexual Orientation Not on file documented as of this encounter Plan of Treatment Not on file documented as of this encounter Visit Diagnoses Not on filedocumented in this encounter Care Teams Energy Engineer Relationship Specialty Start Date End Date Kentrell Herring MD [address] [place] [address] PCP - General Family Practice 09/19/18 documented as of this encounter
--- OUTSIDE RECORDS SUMMARY | 2025-04-24 14:55 | XMS_ITS | Encounter Summary ---
Author Organization [facility] Address [address] [place] [address] Care Team Providers Care Clerk Rating Name Role Phone Kentrell Herring MD Primary Care Provider + Encounter Details Date Type Department Care Team (Late st Contact Info) Description 11/27/2007 Emergency [facility] Emergency Department [address] 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 Gender Identity Not on file Sexual Orientation [...] ORDERABL ES Final Result Performing Organization Address City/State/[facility] Co de Phone Number INTERFACE SYSTEM Refer to clinic/hospital department * (ABNORMAL) URINALYSIS MICROSCOPY ONLY (11/27/2007 3:20 PM CDT) HYALINE CAST None Seen 0 - 2 [facility] WBC URINE 20-30 [facility] BACTERIA UA Moderate(A ) None Seen [facility] RBC UA 0-2 0 - 2 [facility] Urine specimen (specimen) 11/27/2007 3:20 PM CDT 11/27/2007 3:20 PM CDT Narrative [facility] - 11/27/2007 3:46 PM CDT Microscopic ordered by policy Kelly Pereira MD URINE ORDERABLES Final Result Performing Organization Address City/[facility] de Phone Number [facility] [address] [place] [address] * (ABNORMAL) URINALYSIS (11/27/2007 3:20 PM CDT) COLOR UA Yellow Straw [facility] SPECIFIC GRAVITY UA 1.025 <=1.005 [facility] GLUCOSE UA 500 mg/dl(A) NEGATIVE [facility] PH UA 5.0 5.0 - 9.0 [facility] BILIRUBIN UA NEGATIVE NEGATIVE [facility] NITRITE UA NEGATIVE NEGATIVE [facility] KETONES UA >=80 mg/dl(A) NEGATIVE [facility] MICRO EXAM Yes(A) No [facility] LEUKOCYTE ESTERASE UA Trace(A) NEGATIVE [facility] PROTEIN UA Trace(A) NEGATIVE [facility] BLOOD UA Trace(A) NEGATIVE [facility] CLARITY UA Cloudy(A) Clear [facility] UROBILINOGEN UA 0.2 0.2 [facility] Urine specimen (specimen) 11/27/2007 3:20 PM CDT 11/27/2007 3:20 PM CDT us Kelly Pereira MD URINE ORDERABLES Final Result Performing Organization Address [facility] de Phone Number [facility] [address] [place] [address] * (ABNORMAL) POC GLUCOSE (11/27/2007 3:18 PM CDT) GLUCOSE POC 317(H) 60 - 100 mg/dL [facility] Venous blood specimen (specimen) 11/27/2007 3:18 PM CDT 11/28/2007 10:57 AM CDT us Kelly Pereira MD POINT OF CARE TESTING Final Res ult Performing Organization Address [facility] Co de Phone Number [facility] [address] [place] [address] * (ABNORMAL) POC GLUCOSE (11/27/2007 1:21 PM CDT) GLUCOSE POC 293(H) 60 - 100 mg/dL [facility] Venous blood specimen (specimen) 11/27/2007 1:21 PM CDT 11/28/2007 10:57 AM CDT Kelly Pereira MD POINT OF CARE TESTING Final Res ult Performing Organization Address [facility] de Phone Number [facility] [address] [place] [address] * (ABNORMAL) URINALYSIS MICROSCOPY ONLY (11/27/2007 11:22 AM CDT) Pathologist [facility] WBC URINE 11-15(A) 0 - 2 [facility] BACTERIA UA Small(A) None Seen [facility] RBC UA 0-2 0 - 2 [facility] HYALINE CAST None Seen 0 - 2 [facility] Urine specimen (specimen) 11/27/2007 11:22 AM CDT 11/27/2007 11:25 AM CDT Narrative [facility] - 11/27/2007 11:36 AM CDT Microscopic ordered by policy Kelly Pereira MD URINE ORDERABLES Final Result Performing Organization Address [facility] de Phone Number [facility] [address] [place] [address] * (ABNORMAL) URINALYSIS (11/27/2007 11:22 AM CDT) PH UA 5.5 5.0 - 9.0 [facility] BILIRUBIN UA NEGATIVE NEGATIVE [facility] LEUKOCYTE ESTERASE UA Trace(A) NEGATIVE [facility] MICRO EXAM Yes(A) No [facility] KETONES UA >=80 mg/dl(A) NEGATIVE [facility] COLOR UA Yellow Straw [facility] PROTEIN UA 30 mg/dl(A) NEGATIVE [facility] BLOOD UA Trace(A) NEGATIVE [facility] NITRITE UA NEGATIVE NEGATIVE [facility] UROBILINOGEN UA 0.2 0.2 [facility] CLARITY UA SL CLOUDY Clear [facility] GLUCOSE UA >=1000 mg/dl(A) NEGATIVE [facility] SPECIFIC GRAVITY UA 1.020 <=1.005 [facility] Urine specimen (specimen) 11/27/2007 11:22 AM CDT 11/27/2007 11:25 AM CDT Kelly Pereira MD URINE ORDERABLES Final Result Performing Organization Address [facility] Phone Number [facility] [address] [place] [address] * TSH (11/27/2007 10:09 AM CDT) TSH 0.490 0.350 - 5.500 uIU/ml [facility] Blood specimen (specimen) 11/27/2007 10:09 AM CDT 11/27/2007 10:13 AM CDT Kelly Pereira MD CHEMISTRY ORDERABLES Final Resu lt Performing Organization Address [facility] Phone Number [facility] [address] [place] [address] * (ABNORMAL) COMPREHENSIVE METABOLIC PANEL (11/27/2007 10:09 AM CDT) CREATININE 0.6(L) 0.7 - 1.2 mg/dL [facility] CALCIUM 9.5 8.4 - 10.5 mg/dL [facility] ALT 24 4 - 36 IU/L [facility] OSMOLALITY, CALCULATED 289 275 - 295 mOsm/Kg [facility] GLUCOSE 333(H) 70 - 110 mg/dL [facility] CHLORIDE 101 95 - 110 mEq/L [facility] ALKALINE PHOSPHATASE 100 25 - 100 U/L [facility] ALBUMIN/GLOBULIN RATIO 1.3 1.0 - 2.3 [facility] SODIUM 134(L) 136 - 145 mEq/L [facility] TOTAL PROTEIN 7.9 6.3 - 8.2 g/dL [facility] BILIRUBIN TOTAL 0.4 0.3 - 1.2 mg/dL [facility] BUN 12 7 - 17 mg/dL [facility] CO2 17(L) 22 - 32 mmol/l [facility] ANION GAP 20 9 - 20 mEq/L [facility] AST 21 8 - 33 U/L [facility] ALBUMIN 4.4 3.5 - 5.0 g/dL [facility] POTASSIUM 3.8 3.5 - 5.0 mEq/L [facility] GLOBULIN (CALC) 3.5 2.4 - 3.9 g/dL [facility] Blood specimen (specimen) 11/27/2007 10:09 AM CDT 11/27/2007 10:13 AM CDT us Kelly Pereira MD CHEMISTRY ORDERABLES Final Resu lt [facility] [address] [place] [address] * (ABNORMAL) CBC WITH DIFFERENTIAL (11/27/2007 10:09 AM CDT) NEUTROPHIL ABSOLUTE 7.7 2.0 - 8.0 K/ul [facility] NEUTROPHILS 81.1(H) 42.2 - 75.2 % [facility] HEMATOCRIT 43.8 36.0 - 46.0 % [facility] MCH 26.9(L) 27.0 - 34.0 pg [facility] EOSINOPHILS 0.6 0.0 - 7.0 % [facility] PLATELETS 360 140 - 440 K/ul [facility] EOSINOPHIL ABSOLUTE 0.1 0.0 - 0.7 K/ul [facility] RBC 5.50(H) 4.20 - 5.40 Mil/ul [facility] LYMPHOCYTES 14.1(L) 24.0 - 44.0 % [facility] MCHC 33.8 30.0 - 35.0 g/dL [facility] LYMPHOCYTE ABSOLUTE 1.3 1.2 - 4.0 K/ul [facility] MPV 8.7(L) 8.9 - 12.8 Fl [facility] BASOPHILS ABSOLUTE 0.0 0.0 - 0.2 K/ul [facility] BASOPHILS 0.3 0.0 - 1.0 % [facility] HEMOGLOBIN 14.8 12.0 - 16.0 g/dL [facility] RDW 13.5 11.0 - 14.5 % [facility] MONOCYTE ABSOLUTE 0.4 0.1 - 0.6 K/ul [facility] MONOCYTES 3.9 2.0 - 10.0 % [facility] WBC 9.4 4.5 - 11.0 K/ul [facility] MCV 79.6(L) 84.0 - 103.0 Fl [facility] Blood specimen (specimen) 11/27/2007 10:09 AM CDT 11/27/2007 10:13 AM CDT Kelly Pereira MD HEMATOLOGY ORDERABLES Final Res ult Performing Organization Address City/[facility] Phone Number [facility] [address] [place] [address] * ETHANOL (11/27/2007 10:09 AM CDT) ETHANOL <10 <=10 mg/dL [facility] ETHANOL % <0.010 <=0.010 % [facility] Blood specimen (specimen) 11/27/2007 10:09 AM CDT 11/27/2007 10:13 AM CDT Kelly Pereira MD CHEMISTRY ORDERABLES Final Resu lt [facility] [address] [place] [address] documented in this encounter Visit Diagnoses Not on filedocumented in this encounter Care Teams Clerk Rating Relationship Specialty Start Date End Date Kentrell Herring MD [address] [place] [address] PCP - General Family Practice 09/19/18 documented as of this encounter
--- OUTSIDE RECORDS SUMMARY | 2025-04-24 14:55 | XMS_ITS | Encounter Summary ---
Author Organization [facility] Address [address] [place] [address] Care Team Providers Care Musical Engineer Name Role Phone Kentrell Herring MD Primary Care Provider + Encounter Details Date Type Department Care Team (Late st Contact Info) Description 11/27/2007 Outpatient Historical [facility] Aman Allen MD [address] [place] [address] Charles Cantu Jr., MD [address] [place] [address] Social History Tobacco Use Types Packs/Day Years Used Date Smoking Tobacco: Never Assessed Comments Unknown Sex and Gender Information Value Date Recorded Sex Assigned at Not on file 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 Gender Identity Not on file Sexual Orientation [...] AM CDT) HEPATITIS C AB Negative Negative [facility] Comment: HCV antibody testing is [...] ORDERABLES Final Resu lt Performing Organization Address [facility] Phone Number [facility] [address] [place] [address] * HEPATITIS B SURFACE ANTIGEN (11/27/2007 8:12 AM CDT) HEPATITIS B SURFACE AG Negative Negative [facility] Blood specimen (specimen) 11/27/2007 8:12 AM CDT 11/27/2007 8:12 AM CDT Aman Allen MD CHEMISTRY ORDERABLES Final Resu lt Performing Organization Address [facility] Phone Number [facility] [address] [place] [address] * RPR (11/27/2007 8:12 AM CDT) Pathologist [facility] RPR Non-Reactiv e Non-Reacti ve [facility] Blood specimen (specimen) 11/27/2007 8:12 AM CDT 11/27/2007 8:12 AM CDT us Aman Allen MD CHEMISTRY ORDERABLES Final Resu lt Performing Organization Address [facility] Phone Number [facility] [address] [place] [address] * HCG QUANTITATIVE, BLOOD (11/27/2007 8:00 AM CDT) CHORIONIC GONADOTROPIN, TOTAL <2.0 0.0 - 10.0 mlU/ML [facility] Comment: Total HCG levels between 10 mIU/mL and 25 mIU/mL may be indicative of early but need to be correlated with other clinical findings. HCG ranges during normal , as reported by the steam shovel runner, are summarized as follows: Gestational Age Expected [...] Allen MD CHEMISTRY ORDERABLES Final Resu lt [facility] [address] [place] [address] * DRUG SCREEN, URINE (11/27/2007 7:12 AM CDT) OPIATE QUAL, URINE Drug Negative Drug Negative [facility] PCP QUAL, URINE Drug Negative Drug Negative [facility] COCAINE QUAL URINE Drug Negative Drug Negative [facility] CANNABINOIDS QUAL, URINE Drug Negative Drug Negative [facility] AMPHETAMINE QUAL, URINE Drug Negative Drug Negative [facility] Comment: All components of the Urine [...] BENZODIAZEPINE QUAL, URINE Drug Negative Drug Negative [facility] BARBITURATE QUAL, URINE Drug Negative Drug Negative [facility] 11/27/2007 7:12 AM CDT 11/27/2007 7:12 AM CDT us Aman Allen MD URINE ORDERABLES Final Result Performing Organization Address City/State/[facility] Co de Phone Number [facility] [address] [place] [address] documented in this encounter Visit Diagnoses Not on filedocumented in this encounter Care Teams Musical Engineer Relationship Specialty Start Date End Date Kentrell Herring MD [address] [place] [address] PCP - General Family Practice 09/19/18 documented as of this encounter
--- OUTSIDE RECORDS SUMMARY | 2025-04-24 14:55 | XMS_ITS | Encounter Summary ---
Author Organization [facility] Address [address] [place] [address] Care Team Providers Care Rouge Presser Name Role Phone Kentrell Herring MD Primary [...] PELVIS COMPLETE Awilda Trotter NP [address] [place] [address] Phone: tel: fax: [facility]trasound [address] [place] [address] Phone: tel: fax: Referral ID Status Reason Start Date Expiration Date V isits Requested Visits Authorized [id number] Closed F [facility] TO SCHEDULE (SGF) 05/28/2012 05/28/2013 1 1 Encounter Details Date Type Department Care Team (Latest Contact Info) Description 05/28/2012 Ancillary Orders [facility] Pre-Registration [place] CALL TO MAKE APPOINTMENT ONLY [address] [place] [address] Awilda Trotter NP [address] [place] [phone] Unspecified symptom associated with female genital organs; [...] on file 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
--- OUTSIDE RECORDS SUMMARY | 2025-04-24 14:55 | XMS_ITS | Encounter Summary ---
Author Organization [facility] Address [address] [place] [address] Care Team Providers Care Hedge Fund Trader Name Role Phone Kentrell Herring MD Primary Care Provider + Encounter Details Date Type Department Care Team (Latest Contact Info) Description 04/10/2003 Outpatient Historical [facility], [facility]) (Primary Dx) Social History Tobacco Use Types Packs/Day Years Used Date Smoking Tobacco: Never Assessed Comments Unknown Sex and Gender Information Value Date Recorded Sex Assigned at Not on file 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
--- OUTSIDE RECORDS SUMMARY | 2025-04-24 14:55 | XMS_ITS | Encounter Summary ---
Author Organization [facility] Address [address] [place] [address] Care Team Providers Care Fabricator Foam Rubber Name Role Phone Monika Simpson MD Primary Care Provider [phone] Reason for Visit * Auth/Cert (Routine) Specialty Diagnoses / Procedures Referred By Contac t Referred To Contact Perioperative Diagnoses Abscess of bursa of right knee Hx of below knee amputation, right (CMS/HCC) Abscess of bursa of right knee [M71.061] Hx of below knee amputation, right (CMS/HCC) [Z89.511] Procedures TN I&D DEEP ABSC BURSA/HEMATOMA THIGH/KNEE REGION KNEE IRRIGATION AND DEBRIDEMENT OF PRE-PATELLAR BURSA WITH SUTURE REMOVAL RIGHT KNEE 30 MIN SUPINE En Lancaster MD [address] [place] [address] Phone: tel: fax: [facility] Operating Room [address] [place] [address] Phone: tel: fax: Referral ID Status Reason Start Date Expiration Date Visits Re quested Visits Authorized [id number] 1 1 Encounter Details Date Type Department Care Team (Latest Contact Info) Description 11/30/2024 Hospital Encounter [facility] Operating Room [address] [place] [address] En Lancaster MD [address] [place] [address] Abscess of bursa of right knee [...] on file Legal Sex Female 2:06 AM MAGISTRATE ASSISTANT Gender Identity Not on file Sexual Orientation Not on file documented as of this encounter OR Notes * Amie-OP - Taylor Joy RN - 11/30/2024 8:47 AM CDT Patient scheduled to arrive at 0630 per chart note and patient notified. When patient did not arrive we spoke with her since we were unable to reach her. He stated she was admitted to [facility]. We made a call to them and they were not aware of her surgery today and stated that a hospice case manager would arrive around 0800 and would be getting back to us about surgery. I had not heard any information about this by 0840 I called and spoke with Meredith in case management at [facility] who returned a call to me after speaking with her attending physician who says the patient will not be coming today for surgery and if the surgery is necessary they will call us to reschedule. Azalia Foley and OR notified. documented in this encounter Plan of Treatment Upcoming Encounters Date Type Department Care Team (Late st Contact Info) Description 07/02/2025 11:00 AM MAGISTRATE ASSISTANT Office Visit [address] [phone] Monika Simpson MD [address] [phone] documented as of this encounter Visit Diagnoses Not on filedocumented in this encounter Additional Health Concerns Infection Onset Date Last Indicated Resolved Time R/O Meningitis 11/30/2024 11/30/2024 11/30/2024 10 :01 PM CDT Assessment Noted Time PHQ-9 Depression Total Score: 2 03/12/20 8:33 AM CDT documented as of this encounter Care Teams Fabricator Foam Rubber Relationship Specialty Start Date End Date Monika Simpson MD [address] [phone] PCP - General Family Practice 03/12/24 documented as of this encounter
--- OUTSIDE RECORDS SUMMARY | 2025-04-24 14:55 | XMS_ITS | Clinical Summary ---
Author Organization [facility] Address [address] [place] [address] Care Team Providers Care Director Electronics Name Role Phone Kentrell Herring MD Primary Care Provider [phone] Social History Tobacco Use Types Packs/Day Years [...] 50+ Years Discontinued 9 Insurance Medicaid [place] ([id number]) Care Teams Director Electronics Relationship Specialty Start Date End Date Kentrell Herring MD [address] [place] [phone] PCP - General Family Medicine 09/29/18
[2025-04-24 15:10] LABS: Hematocrit 28.9 % (36-47); Hemoglobin 9.30 g/dL (11.27-16.99); Mean Corpuscular HGB Conc 32.2 g/dL (30-55); Mean Corpuscular Hemoglobin 29.9 pg (27-33); Mean Corpuscular Volume 92.9 fl (85-98); Nucleated Red Blood Cells % 0 %; Platelet Count 298 10^3/cmm (157-399); Red Blood Count 3.11 10^6/uL (3.85-5.65); White Blood Count 15.23 10^3/uL (3.29-11.43)
[2025-04-24] MEDS: labetalol 5 mg/mL SDV 20mL 20 MG IVP (15:22)
[2025-04-24 15:36] LABS: Acetaminophen < 5.0 ug/mL (10-30); Alanine Aminotransferase 22 U/L (0-33); Albumin Level 4.3 g/dL (3.5-5.2); Alcohol Level < 10 mg/dL (0-10); Alkaline Phosphatase 270 U/L (35-105); Anion Gap 22.5 (5-19); Aspartate Amino Transferase 36 U/L (0-32); Blood Urea Nitrogen 80 mg/dL (6-20); Calcium 9.2 mg/dL (8.5-10.5); Carbon Dioxide 18 mmol/L (22-29); Chloride 99 mmol/L (98-107); Globulin 3.6 g/dL (1.3-4.6); Glucose 219 mg/dL (65-115); Osmolality Calculated 311 mOsm/kg (285-295); Potassium 4.5 mmol/L (3.5-5.1); Salicylate < 0.3 mg/dL (3-10); Sodium 135 mmol/L (136-145); Thyroid Stimulating Hormone 1.48 uIU/mL (0.27-4.20); Total Protein 7.9 g/dL (6.6-8.7)
[2025-04-24 16:02] LABS: Glucose Urine UA Trace (Normal); Nitrate Urine Negative (Negative); Specific Gravity, Urine 1.013 (1.005-1.030)
[2025-04-24 16:03] LABS: HCG Qualitative Urine. Negative (Negative)
[2025-04-24 16:05] LABS: PCP Screen Urine Negative (Negative)
[2025-04-24 16:07] LABS: Add Urine Microscopic? YES
[2025-04-24] MEDS: HYDROmorphone 0.5 MG/0.5 ML INJ 1 MG IVP ×2 (16:08→23:29)
[2025-04-24] MEDS: hyDRALAzine 20 mg/mL INJ 1 mL IVP (17:30)
[2025-04-24] MEDS: nicardipine 20 MG/200 ML PREMIX 50 MG IV (18:14)
--- NOTE | 2025-04-24 18:18 | PC.NURSE ---
per verbal order of Dr. Moore to give all anti-hypertensive medications at same time; with Nicardipine gtt infusing. this nurse informed Dr. Moore of medications being unverified at this time.
--- NOTE | 2025-04-24 18:27 | CTR_ITS ---
PROCEDURE INFORMATION: Exam: CT Thoracic Spine Without Contrast Exam date and time: 04/24/2025 6:40 PM Age: 45 years old Clinical indication: Pain in thoracic spine; Additional info: Possible discitis TECHNIQUE: Imaging protocol: Computed tomography of the thoracic spine without contrast. 1 image(s) are submitted. Radiation optimization: All CT scans at this facility use at least one of these dose optimization techniques: automated exposure control; mA and/or kV adjustment per patient size (includes targeted exams where dose is matched to clinical indication); or iterative reconstruction. COMPARISON: CT thoracic spin wo con* [id number] 01/06/2025 3:31 PM RADIATION DOSE METRICS: Total DLP (mGy-cm): 702.41 FINDINGS: Bones/joints: Status post anterior cervical spine fusion at least through C5, C6 and C7 vertebra. Posterior spinal fusion hardware is noted with pedicle screws at T1 and T2 level bilaterally. No evidence of hardware fracture or loosening. Normal thoracic spine alignment without bony fracture. No focal bony destructive lesion seen. Irregular calcific density projecting within the spinal canal at inferior C7 level, could represent sequela of prior bony fracture. They are located 7 mm posterior to the vertebral body. Soft tissues: Unremarkable. CT/CT thoracic spin wo con* [id number] IMPRESSION: Status post anterior cervical spine fusion at least through C5, C6 and C7 vertebra. Posterior spinal fusion hardware is noted with pedicle screws at T1 and T2 level bilaterally.Irregular calcific density projecting within the spinal canal at inferior C7 level, could represent sequela of prior bony fracture. They are located 7 mm posterior to the vertebral body. No evidence of hardware fracture or loosening. Normal thoracic spine alignment without bony fracture. No focal bony destructive lesion seen. Discitis can not be ruled out by CT study.
--- NOTE | 2025-04-24 18:27 | CTR_ITS ---
PROCEDURE INFORMATION: Exam: CT Lumbar Spine Without Contrast Exam date and time: 04/24/2025 6:46 PM Age: 45 years old Clinical indication: Low back pain; Additional info: Possible discitis, back pain TECHNIQUE: Imaging protocol: Computed tomography of the lumbar spine without contrast. 559 image(s) are submitted. Radiation optimization: All CT scans at this facility use at least one of these dose optimization techniques: automated exposure control; mA and/or kV adjustment per patient size (includes targeted exams where dose is matched to clinical indication); or iterative reconstruction. COMPARISON: MR lumbar spine wo con* [id number] 05/28/2024 5:05 PM RADIATION DOSE METRICS: Total DLP (mGy-cm): 708.03 FINDINGS: Bones/joints: No acute fracture. Normal alignment. No significant disc bulge or herniation. No severe spinal canal stenosis. No significant neural foraminal narrowing. Soft tissues: Unremarkable. CT/CT lumbar spine wo con* [id number] IMPRESSION: No acute lumbar spine fracture. No shelbi evidence of disc herniation, disc space narrowing, neural foraminal stenosis or nerve root compression. No hemorrhage within the spinal canal. Subtle discitis can not be ruled out by CT study however, no shelbi evidence of discitis.
--- NOTE | 2025-04-24 18:27 | CTR_ITS ---
PROCEDURE INFORMATION: Exam: CT Abdomen And Pelvis Without Contrast Exam date and time: 04/24/2025 6:43 PM Age: 45 years old Clinical indication: Abdominal pain; Generalized; Additional info: Bran on ckd, abd pain renal coil TECHNIQUE: Imaging protocol: Computed tomography of the abdomen and pelvis without contrast. 623 image(s) are submitted. Radiation optimization: All CT scans at this facility use at least one of these dose optimization techniques: automated exposure control; mA and/or kV adjustment per patient size (includes targeted exams where dose is matched to clinical indication); or iterative reconstruction. COMPARISON: CT abdomen pelvis con [id number] 02/05/2025 7:30 AM RADIATION DOSE METRICS: Total DLP (mGy-cm): 663.63 FINDINGS: Tubes, catheters and devices: no significant change since previous study with embolization coil anterior to the right renal pelvis. Liver: Normal. No mass. Gallbladder and biliary ducts: Status post cholecystectomy, unchanged. No biliary tree distension. Pancreas: Normal. No ductal dilation. Spleen: Normal. No splenomegaly. Adrenal glands: Normal. No mass. Kidneys and ureters: See Soft tissues finding. Stomach and bowel: See Soft tissues finding. Appendix: No evidence of appendicitis. Intraperitoneal space: Unremarkable. No free air. No significant fluid collection. Vasculature: Unremarkable. No abdominal aortic aneurysm. Lymph nodes: Unremarkable. No enlarged lymph nodes. Urinary bladder: Moderate distension of urinary bladder. Reproductive: Unremarkable as visualized. Bones/joints: Unremarkable. No acute fracture. Soft tissues: Fat containing umbilical hernia, unchanged. No bowel involvement. No evidence of small bowel obstruction. No evidence of urinary tract obstruction or calculus. 1.4 cm probable simple cyst in the lower pole of the left kidney, unchanged. CT/CT abdomen pelvis [facility] [id number] IMPRESSION: 1. No significant change since previous study with embolization coil anterior to the right renal pelvis. 2. Fat containing umbilical hernia, unchanged. No bowel involvement. No evidence of small bowel obstruction. No evidence of urinary tract obstruction or calculus. 1.4 cm probable simple cyst in the lower pole of the left kidney, unchanged.
--- NOTE | 2025-04-24 18:34 | PC.NURSE ---
pt was read her rights at this time with security present
--- NOTE | 2025-04-24 18:41 | PC.NURSE ---
PO medications still unverified at this time.
[2025-04-24 19:25] LABS: Iron 58 ug/dL (37-145); Total Iron Binding Capacity 309 mcg/dl; Unsaturated Iron Binding 251 ug/dL (112-347)
[2025-04-24 19:49] LABS: Estmated Average Glucose 88; Hemoglobin A1C 4.7 % (4.0-6.0)
--- NOTE | 2025-04-24 19:56 | PC.NURSE ---
Addendum entered by AYLA Malcolm 04/24/25 20:11: Provider notified and gave orders for bilateral wrist restraints as well as precedex. Orders placed. See MAR Original Note: Patient arrived to unit at 1855. Dayshift helped settle and situate patient. Patient refusing many cares at this time. Patient hooked to all monitoring. While doing patients admission assessments at approximately 1955 patient began to rip medical monitoring equipment off, began to bite herself, bite this nurse as well as rip her own hair out. This nurse yelled for help. Nurse Steve Garcia RN was in next room and came to assist. Charge nurse Светлана notified and warehouse shipping supervisor notified as well. Patient has sitter at bedside. Patient ED nurse confirmed patient had been read rights prior to coming to the floor.
[2025-04-24 20:06] LABS: Lactic Sepsis W/Reflex 1.6 mmol/L (0.5-2.2)
[2025-04-24 20:29] LABS: Procalcitonin 0.15 ng/mL (0-0.5); Vitamin B12 267 pg/mL (232-1245)
[2025-04-24] MEDS: dexmedeTOMIDine 0.9 % NaCL 400 MCG/100 ML PREMIX IV (20:40)
[2025-04-24] MEDS: NIFEdipine ER (24 hr) 30 mg Tablet PO (20:42)
[2025-04-24] MEDS: pantoprazole 40 mg SDV IVP (20:43)
--- NOTE | 2025-04-24 20:59 | PC.NURSE ---
Attempted to administer heparin to patient and patient refused. Educated patient who again refused. Calmly once more tried to explain to patient importance of medication and she refused to allow administration. GILDA Wells at bedside and witness to patients refusal.
--- NOTE | 2025-04-24 21:00 | PM.HP ---
Providers/Chief Complaint Admitting Physician: Jose A Moore MD Primary Care Provider: Monika Simpson MD Chief Complaint: SI/BACK PAIN History of Present Illness Cherrie Solomon is a 45 year old female with a past medical history of right sided BKA and left-sided AKA related to osteomyelitis and septic bursitis earlier this year. Completed an extended course of antibiotics at [facility] in December 2024. Patient has chronic pain and recently has had not been able to get a steady supply of opiates. She presented to the emergency room today with severe pain affecting her bilateral lower extremities and her back. She reported suicidal ideation as she has in the past related to distress from being in constant pain. She has been referred to [facility] Suboxone clinic in the past and has been assessed for placement of a spinal stimulator in the past, however this has not worked out related to transportation issues and inability to come into town for Suboxone clinic and having had a test device being ruined by water damage. She presented to the ER today with reported suicidal ideation. Here she was also found to have hypertensive emergency which necessitated starting a nicardipine infusion. She was agitated, hitting her head against the bed rails as she has done on multiple occasions in the past and attempting to bite herself and in the process accidentally almost bit to the staff caring for her.. Her right lower extremity has several scratches and nail arambula from where patient has dug into it in the past. Her stump incision sites currently are appearing to be healthy. In view of her severe agitation and risk of harm to self and current caregivers, she was started on a Precedex infusion and has been brought to the ICU on a 96-hour hold. Review of Systems General: Reports: ROS unobtainable due to medical condition (Unable to get an extensive review of systems related to her agitation.) Medications/Allergies Home Medications ?Medication ?Instructions ?Recorded ?Confirmed ?Last Taken ?Type quetiapine 100 mg tablet 100 mg PO BEDTIME 09/13/24 03/13/25 03/12/25 History hydralazine 100 mg tablet 100 mg PO Q8H 01/06/25 03/13/25 Unknown History isosorbide dinitrate 20 mg tablet 20 mg PO BID 01/06/25 03/13/25 Unknown History naloxone 4 mg/actuation nasal See Rx Instructions .Route .COMPLEX 01/06/25 03/13/25 Unknown History spray (Narcan) paroxetine HCl 20 mg tablet 20 mg PO DAILY 01/06/25 03/13/25 Unknown History propranolol 20 mg tablet 20 mg PO Q8H 01/06/25 03/13/25 Unknown History pregabalin 75 mg capsule (Lyrica) 75 mg PO BID #60 caps 01/30/25 03/13/25 Unknown Rx quetiapine 50 mg tablet 50 mg PO QAM 02/05/25 03/13/25 03/12/25 History cefdinir 300 mg capsule 300 mg PO BID #14 caps 03/13/25 Unknown Rx metoclopramide HCl 10 mg tablet 5 mg PO QID 03/13/25 03/13/25 03/12/25 History nifedipine 30 mg tablet,extended 30 mg PO DAILY 03/13/25 03/13/25 03/12/25 History release Allergies Allergy/AdvReac Type Severity Reaction Status Date / Time morphine Allergy ALGY-Difficulty Verified 09/12/24 20:19 Breathing sulfamethoxazole (From Allergy ADR-Vomitin Verified 09/12/24 20:19 Bactrim) g trimethoprim (From Bactrim) Allergy ADR-Vomitin Verified 09/12/24 20:19 g PFSH Acute PFSH: Medical History Acute kidney injury superimposed on CKD Type 1 diabetes mellitus with other skin ulcer Suicide attempt Urinary retention Septic prepatellar bursitis of left knee Chronic pain Hyperglycemia Anemia of chronic disease Insomnia GERD (gastroesophageal reflux disease) ALEJANDRO (generalized anxiety disorder) C. 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 CKD (chronic kidney disease) stage 2, GFR 60-89 ml/min baseline Cr is around 1.0 Diabetic foot ulcer s/p surgical intervention and eventual amputation Hyperlipidemia Coronary artery disease hx of stenting Diabetic gastroparesis Diabetes mellitus type 1 diagnosed age 15, history of peripheral neuropathy, gastroparesis and nephropathy Surgical History Hx of angioplasty H/O esophagogastroduodenoscopy (12/31/20) Bile reflux gastritis, grade B esophagitis Hx of cholecystectomy History of amputation of right forefoot Below-knee amputation of left lower extremity S/P percutaneous endoscopic gastrostomy (PEG) tube placement H/O exploratory laparotomy x 3 Previous section x 3 S/P coronary artery stent placement x 1 Family History Unknown Diabetes extensive, type II Other Congestive heart failure (CHF) Social History Smoking and tobacco/nicotine status: former use of tobacco/nicotine Quit status (tobacco/nicotine): has quit using Former quit date comment: 15 yrs ago Alcohol intake: former Former alcohol use details: 15 yrs ago Substance/Drug Use: current Substance/Drug use frequency: daily Household members: spouse Marital status: Current occupation: disabled Sexually active: Yes (1, ) Female Reproductive History: Spontaneous abortions: No Vitals/I&O/Wt Last Vital Signs Temp 98.4 F 04/24/25 19:00 Pulse 106 H 04/24/25 22:15 Resp 26 H 04/24/25 22:15 BP 150/70 04/24/25 22:15 Pulse Ox 97 04/24/25 22:15 O2 Del Method Room Air 04/24/25 20:26 04/24/25 04/24/25 04/24/25 06:59 14:59 22:59 Intake Total 426.042 / 426.042 Balance 426.042 / 426.042 Weight last 48 hrs Weight 66.134 kg Physical Exam Narrative: General: No acute distress at this time, on Precedex infusion at 0.5 HEENT: PERRLA, pupils bilaterally equal and reactive, pallors not present Chest: Normal vesicular breath sounds, no added sounds, equal good air entry bilaterally CVS: S1-S2 regular, no murmurs, no tachycardia, no gallops, no rubs Abdomen: Soft, nontender, no organomegaly, bowel sounds present Neuro: No focal deficits, no facial deformity Extremities, right BKA, multiple scratches and nail arambula over right thigh on the lateral aspect. No obvious signs of cellulitis or infection. Incision line is well-healed. Left side AKA, again amputation site is well-healed. Data 04/25/25 03:35 04/25/25 03:35 Micro: Microbiology 04/24/25 18:10 Blood Culture - Preliminary Blood SPECIMEN COLLECTED 04/24/25 15:01 Blood Culture - Preliminary Blood SPECIMEN COLLECTED A&P Assessment and plan 1. Suicidal ideation: 45-year-old lady with past medical history as outlined above currently presenting to the hospital with chief complaints of suicidal ideation relating to chronic pain and depression over poor quality of life relating to being a bilateral amputee and several social stressors. Patient is currently on a 96-hour hold. Awaiting psychiatry assessment. In the interim continue quetiapine 100 mg p.o. at bedtime and 50 mg p.o. every morning as patient takes at home. 2. Depression: Relating to several medical comorbidities and social stressors 3. Combative behavior: Currently on a Precedex infusion to prevent self-harm and harm to caregivers Soft restraints once patient sedated. 4. Opiate withdrawal: Suspect some degree of opiate withdrawal may be contributing as she reports she has not been able to obtain a regular supply of her prescription opiates. This will need to be verified with the PDMP ER visits over the past 2 months to note to patient running out of opiates and being declined prescriptions as outpatient and being given short courses from the hospital. Currently patient is acutely in pain leading to her combative behavior. Will add Dilaudid 1 mg IV every 6 hours as needed. 5. Uncontrolled hypertension: Uncontrolled hypertension for which patient was started on Cardene drip in the ER. We will continue this. Start patient's regular home medications nifedipine, hydralazine, isosorbide dinitrate, carvedilol and assess for improvement. Attempt to wean off Cardene drip as tolerated. 6. Gastroparesis: Multiple episodes of nausea and vomiting likely related to known gastroparesis. CT of the abdomen and pelvis showed embolization coils anterior to the right renal pelvis. No bowel issues. No small bowel obstruction. Small 1.4 cm cyst in the lower pole of the left kidney. 7. Status post above-knee amputation of left lower extremity: 8. Status post below knee amputation of right lower extremity: Status post bilateral amputation relating to past osteomyelitis and septic bursitis. She has several scratches and nail arambula over the extremities, however no gross signs of cellulitis or infection are noted today. Incision sites are well-healed. 9. Chronic kidney disease: Chronic kidney disease, creatinine at recent baseline of 3.6. 10. Leukocytosis: Leukocytosis likely related to acute agitation, vomiting and dehydration. Started on empiric piperacillin/tazobactam and vancomycin while undergoing evaluation with plan to discontinue if source evaluation remains negative. Bilateral stumps appear without any signs of infection. Chest x-ray is without consolidation. CT of the abdomen pelvis without any intra-abdominal source. UA without elevated WBCs nitrate or leukocyte esterase, unlikely UTI. Patient complaining of severe back pain, CT of the thoracic and lumbar spine was performed to rule out discitis/osteomyelitis. A noncontrast study is negative for the same. Blood cultures taken and pending. Plan: DVT prophylaxis: Heparin 5000 units subcutaneously every 12 hours Full code PDMP PDMP Reviewed: Not Reviewed Attestations Medical Necessity Statement*: Greater than 2 midnight stay is anticipated, currently requiring nicardipine infusion, Precedex infusion, suicidal ideation on a 96-hour hold. Coding Level of Care Code Acute Code for Chg Fwd High MDM includes number and complexity of problems actively addressed during encounter, amount and/or complexity of data reviewed/ordered and described risk of complication, morbidity or mortality of management as documented Diagnoses Suicidal ideation R45.851 Depression F32.A Combative behavior R46.89 Opiate withdrawal F11.93 Uncontrolled hypertension I10 Gastroparesis K31.84 Status post above-knee amputation of left lower extremity Z89.612 Status post below knee amputation of right lower extremity Z89.511 Chronic kidney disease N18.9 Leukocytosis D72.829
[2025-04-24] MEDS: piperacillin-tazobactam 3.375 GM in sodium chloride 0.9% (plus) 50 ML IV (21:49)
[2025-04-24] MEDS: nicardipine 20 MG/200 ML PREMIX 30 MG IV (22:11)
[2025-04-24] MEDS: ondansetron 2 mg/ML SDV 2 mL 4 MG IVP (23:29)
[2025-04-25] VITALS (62 sets, daily range): BP systolic 72–171; BP diastolic 34–88; PULSE 77–114; RESP 2–22; TEMP 36.6–36.8; O2SAT 90–100; BMI 30.8
--- NOTE | 2025-04-25 02:15 | PC.NURSE ---
Cardene drip was at maintenance dose but paused due to consecutive readings of a decrease in blood pressure.
[2025-04-25 04:30] LABS: Hematocrit 26.6 % (36-47); Hemoglobin 8.70 g/dL (11.27-16.99); Mean Corpuscular HGB Conc 32.7 g/dL (30-55); Mean Corpuscular Hemoglobin 30.5 pg (27-33); Mean Corpuscular Volume 93.3 fl (85-98); Nucleated Red Blood Cells % 0 %; Platelet Count 299 10^3/cmm (157-399); Red Blood Count 2.85 10^6/uL (3.85-5.65); White Blood Count 11.44 10^3/uL (3.29-11.43)
[2025-04-25 05:00] LABS: Alanine Aminotransferase 18 U/L (0-33); Albumin Level 4.0 g/dL (3.5-5.2); Alkaline Phosphatase 237 U/L (35-105); Anion Gap 20.7 (5-19); Aspartate Amino Transferase 23 U/L (0-32); Calcium 9.2 mg/dL (8.5-10.5); Carbon Dioxide 20 mmol/L (22-29); Chloride 105 mmol/L (98-107); Creatinine Clr Calc Pharmacy 20.1693; Globulin 3.2 g/dL (1.3-4.6); Glucose 157 mg/dL (65-115); Magnesium 1.9 mg/dL (1.7-2.3); Osmolality Calculated 320 mOsm/kg (285-295); Potassium 4.7 mmol/L (3.5-5.1); Sodium 141 mmol/L (136-145); Total Protein 7.2 g/dL (6.6-8.7)
[2025-04-25 05:20] LABS: Blood Urea Nitrogen 82 mg/dL (6-20)
[2025-04-25 06:17] LABS: Procalcitonin 0.44 ng/mL (0-0.5)
[2025-04-25 06:17] LABS: Thyroid Stimulating Hormone 0.92 uIU/mL (0.27-4.20)
[2025-04-25 06:28] LABS: Cholesterol 156 mg/dL (0-200); HDL Cholesterol 91 mg/dL (60-100); Triglycerides 36 mg/dL (0-150)
[2025-04-25] MEDS: vancomycin 500 MG in sodium chloride 0.9% (plus) 100 ML 200 MG IV (06:40)
--- NOTE | 2025-04-25 07:31 | PHA.VACGOAL ---
Vancomycin Goal - Goal Vancomycin Goal:: 15-20 mg/L Vancomycin Indication:: Other - Therapy Current therapy:: Pip/Tazo Day of therpy:: Day [1]of [] . Actual body weight (kg): 66.9 kg - Data Labs: WBC 11.44 10^3/uL (3.29-11.43) H 04/25/25 03:35 RBC 2.85 10^6/uL (3.85-5.65) L 04/25/25 03:35 Hgb 8.70 g/dL (11.27-16.99) L 04/25/25 03:35 Hct 26.6 % (36-47) L 04/25/25 03:35 MCV 93.3 fl (85-98) 04/25/25 03:35 MCH 30.5 pg (27-33) 04/25/25 03:35 MCHC 32.7 g/dL (30-55) 04/25/25 03:35 RDW 15.0 % (12.1-15.1) 04/25/25 03:35 Sodium 141 mmol/L (136-145) 04/25/25 03:35 Potassium 4.7 mmol/L (3.5-5.1) 04/25/25 03:35 Chloride 105 mmol/L (98-107) 04/25/25 03:35 Carbon Dioxide 20 mmol/L (22-29) L 04/25/25 03:35 Anion Gap 20.7 (5-19) H 04/25/25 03:35 BUN 82 mg/dL (6-20) H* 04/25/25 03:35 Creatinine 3.6 mg/dL (0.5-0.9) H 04/25/25 03:35 GFR Calculation 13.6 mL/min (90-130) L 04/25/25 03:35 Treatment plan:: new consult Regimen:: 1000 mg dose given in the ER. Additional 500 mg dose ordered for total load dose of 1500 mg. Due to CrCl <30 mL/min will start patient on pulse dosing post load dose. Vancomycin level ordered with AM labs on 04/26.
[2025-04-25] MEDS: piperacillin-tazobactam 3.375 GM in sodium chloride 0.9% (plus) 50 ML IV ×2 (08:07→20:58)
[2025-04-25] MEDS: NIFEdipine ER (24 hr) 30 mg Tablet PO (08:07)
[2025-04-25] MEDS: HYDROmorphone 0.5 MG/0.5 ML INJ IVP ×2 (12:09→20:54)
[2025-04-25] MEDS: ondansetron 2 mg/ML SDV 2 mL 4 MG IVP (12:27)
--- NOTE | 2025-04-25 15:57 | P.PN_ITS ---
Subjective 2 Subjective: Admitted overnight. H&P and labs appreciated. Today morning after receiving all her antihypertensives she became hypotensive for which she required 1 L IV fluid bolus. Awake and alert. Not agitated. Complaining of nausea. Precedex drip off. Vitals/I&O/Wt Last Vital Signs Temp 97.8 F 04/25/25 04:00 Pulse 96 04/25/25 12:30 Resp 11 L 04/25/25 12:30 BP 132/64 04/25/25 12:30 Pulse Ox 97 04/25/25 12:30 O2 Del Method Room Air 04/25/25 00:00 04/25/25 04/25/25 04/25/25 06:59 14:59 22:59 Intake Total 1077.5 / 1841.042 665.99 / 665.99 Output Total 800 / 800 Balance 277.5 / 1041.042 665.99 / 665.99 Weight last 48 hrs Weight 66.9 kg Weight 66.905 kg Weight 66.134 kg Physical Exam 2 Narrative: General: No acute distress at this time, AO x 3 HEENT: PERRLA, pupils bilaterally equal and reactive, pallors not present Chest: Normal vesicular breath sounds, no added sounds, equal good air entry bilaterally CVS: S1-S2 regular, no murmurs, no tachycardia, no gallops, no rubs Abdomen: Soft, nontender, no organomegaly, bowel sounds present Neuro: No focal deficits, no facial deformity Extremities, right BKA, multiple scratches and nail arambula over right thigh on the lateral aspect. No obvious signs of cellulitis or infection. Incision line is well-healed. Left side AKA, again amputation site is well-healed. Urinary Catheter Management: [place]: Cath Placed During This Visit: yes Reason for Continuing Indwelling Catheter: Accurate Measurement of Urinary Output in Critically Ill Patients Urinary Catheter Date of Insertion: 04/24/25 Urinary Catheter Time of Insertion: 23:40 Data 04/25/25 03:35 04/25/25 03:35 Micro: Microbiology 04/24/25 15:45 Bacterial Antigens - Final Urine Kidney 04/24/25 18:10 Blood Culture - Preliminary Blood SPECIMEN COLLECTED 04/24/25 15:01 Blood Culture - Preliminary Blood SPECIMEN COLLECTED A&P Assessment and plan 1. Suicidal ideation: 45-year-old lady with past medical history as outlined above currently presenting to the hospital with chief complaints of suicidal ideation relating to chronic pain and depression over poor quality of life relating to being a bilateral amputee and several social stressors. Patient is currently on a 96-hour hold. Awaiting psychiatry assessment. In the interim continue quetiapine 100 mg p.o. at bedtime and 50 mg p.o. every morning as patient takes at home. 2. Depression, unspecified depression type: Relating to several medical comorbidities and social stressors 3. Combative behavior: On admission. Currently noncombative. Improved after starting pain medications. Sitter 4. Opiate withdrawal: Suspect some degree of opiate withdrawal may be contributing as she reports she has not been able to obtain a regular supply of her prescription opiates. ER visits over the past 2 months to note to patient running out of opiates and being declined prescriptions as outpatient and being given short courses from the hospital. Currently patient is acutely in pain leading to her combative behavior. Continue with IV Dilaudid 0.5 mg every 6 hour. Patient would benefit with outpatient pain management. 5. Uncontrolled hypertension: Cardene drip weaned off. Goal blood pressure less than 140/90 mmHg with mean over 65. Blood pressure soft today. For now continue only with home dose of nifedipine and isosorbide. Can continue with IV hydralazine 10 mg 6 hours as needed for systolic of more than 160. Will uptitrate antihypertensive depending on blood pressures. 6. Acute kidney injury superimposed on CKD: Baseline creatinine seems to be around 1.8-2.5. Currently 3.8-3.6. Associated with uremia and metabolic acidosis. Check urinalysis, urine creatinine, urine lites. IV fluid with NS at 75 cc/h. Monitor BMP every 12 hours. If continues to remain high even after hydration or worsening can plan for nephrology consultation. 7. Leukocytosis: Leukocytosis likely related to acute agitation, vomiting and dehydration. Started on empiric piperacillin/tazobactam and vancomycin while undergoing evaluation with plan to discontinue if source evaluation remains negative. Bilateral stumps appear without any signs of infection. Chest x-ray is without consolidation. CT of the abdomen pelvis without any intra-abdominal source. UA without elevated WBCs nitrate or leukocyte esterase, unlikely UTI. Patient complaining of severe back pain, CT of the thoracic and lumbar spine was performed to rule out discitis/osteomyelitis. A noncontrast study is negative for the same. Blood cultures taken and pending. 8. Gastroparesis: Multiple episodes of nausea and vomiting likely related to known gastroparesis. CT of the abdomen and pelvis showed embolization coils anterior to the right renal pelvis. No bowel issues. No small bowel obstruction. Small 1.4 cm cyst in the lower pole of the left kidney. Start on scopolamine patch, Reglan every 6 hours. Monitor QTc. 9. Status post below knee amputation of right lower extremity: Status post bilateral amputation relating to past osteomyelitis and septic bursitis. She has several scratches and nail arambula over the extremities, however no gross signs of cellulitis or infection are noted today. Incision sites are well-healed. 10. Status post above-knee amputation of left lower extremity: Plan: Full code Protonix for PUD prophylaxis Renal nondialysis diet Heparin 5000 every 12 hourly for DVT prophylaxis PDMP PDMP Reviewed: Last Reviewed 04/25/25 12:19 by Jose A Moore MD Attestations 2 Medical Necessity Statement*: Requires further hospitalization for management of suicidal ideation, 96-hour hold, opiate withdrawal, uncontrolled hypertension Critical Care Time: The high probability of a clinically significant, sudden or life threatening deterioration of the patient's [cardiac, psychological, renal] system(s) required my full and direct attention, intervention and personal management. The critical care time is as shown. This time is in addition to time spent performing any reported procedures but includes the following: [x] Data and vital sign review and interpretation [x] Patient assessment, examination and intervention [x] Documentation [x] Medication orders and management Critical Care Time (min): 50 Coding Level of Care Code Critical Care >/= 30 minutes Critical care time (in minutes): 50 The high probability of a clinically significant, sudden or life threatening deterioration, as referenced in this documentation, required my full and direct attention, intervention and personal management. The critical care time shown is in addition to time spent performing any reported separately billable procedures and includes the following: [x] Data and vital sign review and interpretation [x ] Patient assessment, examination and intervention [x] Medication orders and management [x] Patient/Family updates as able [x] Care Coordination and Documentation. Diagnoses Suicidal ideation R45.851 Depression, unspecified depression type F32.9 Depression Type: unspecified Combative behavior R46.89 Opiate withdrawal F11.93 Uncontrolled hypertension I10 Acute kidney injury superimposed on CKD N17.9; N18.9 Leukocytosis D72.829 Gastroparesis K31.84 Status post below knee amputation of right lower extremity Z89.511 Status post above-knee amputation of left lower extremity Z89.612
[2025-04-25 16:29] LABS: Glucose Urine UA Negative (Normal); Nitrate Urine Negative (Negative); Specific Gravity, Urine 1.015 (1.005-1.030)
[2025-04-25 16:34] LABS: Add Urine Microscopic? YES
[2025-04-25 16:44] LABS: Potassium, Radom Urine 41 mmol/L
[2025-04-25 16:45] LABS: UA Slide Review UA Slide Review Perf; Urine Random Chloride 11 mmol/L; Urine Random Sodium 10 mmol/L
[2025-04-25] MEDS: metoclopramide 5 mg/mL SDV 2 mL IVP (16:47)
[2025-04-25 16:49] LABS: Creatinine Urine, Random 92 mg/dL (28-217)
[2025-04-25 17:05] LABS: Anion Gap 21.3 (5-19); Blood Urea Nitrogen 73 mg/dL (6-20); Calcium 8.7 mg/dL (8.5-10.5); Carbon Dioxide 17 mmol/L (22-29); Chloride 102 mmol/L (98-107); Creatinine Clr Calc Pharmacy 18.3627; Glucose 114 mg/dL (65-115); Osmolality Calculated 304 mOsm/kg (285-295); Potassium 4.3 mmol/L (3.5-5.1); Sodium 136 mmol/L (136-145)
[2025-04-25 17:11] LABS: Microalbum Creatinine Ratio Ur 2109 mg/dL (0-20)
[2025-04-25] MEDS: pantoprazole 40 mg SDV IVP (20:55)
[2025-04-26] VITALS (48 sets, daily range): BP systolic 117–189; BP diastolic 58–97; PULSE 77–117; RESP 4–24; TEMP 36.5–37.5; O2SAT 94–97
[2025-04-26] MEDS: metoclopramide 5 mg/mL SDV 2 mL IVP ×2 (00:58→05:21)
[2025-04-26] MEDS: HYDROmorphone 0.5 MG/0.5 ML INJ IVP ×2 (01:23→03:44)
[2025-04-26] MEDS: NIFEdipine ER (24 hr) 30 mg Tablet PO (05:23)
[2025-04-26 05:27] LABS: Hematocrit 23.5 % (36-47); Hemoglobin 7.50 g/dL (11.27-16.99); Mean Corpuscular HGB Conc 31.9 g/dL (30-55); Mean Corpuscular Hemoglobin 30.9 pg (27-33); Mean Corpuscular Volume 96.7 fl (85-98); Nucleated Red Blood Cells % 0 %; Platelet Count 256 10^3/cmm (157-399); Red Blood Count 2.43 10^6/uL (3.85-5.65); White Blood Count 10.93 10^3/uL (3.29-11.43)
[2025-04-26 05:50] LABS: Alanine Aminotransferase 15 U/L (0-33); Albumin Level 3.8 g/dL (3.5-5.2); Alkaline Phosphatase 188 U/L (35-105); Anion Gap 18.0 (5-19); Aspartate Amino Transferase 20 U/L (0-32); Blood Urea Nitrogen 68 mg/dL (6-20); Calcium 8.3 mg/dL (8.5-10.5); Carbon Dioxide 18 mmol/L (22-29); Chloride 107 mmol/L (98-107); Creatinine Clr Calc Pharmacy 17.9148; Globulin 2.5 g/dL (1.3-4.6); Glucose 104 mg/dL (65-115); Magnesium 1.9 mg/dL (1.7-2.3); Osmolality Calculated 308 mOsm/kg (285-295); Potassium 4.0 mmol/L (3.5-5.1); Sodium 139 mmol/L (136-145); Total Protein 6.3 g/dL (6.6-8.7)
[2025-04-26] MEDS: piperacillin-tazobactam 3.375 GM in sodium chloride 0.9% (plus) 50 ML IV ×2 (08:33→20:34)
--- NOTE | 2025-04-26 09:20 | MR_ITS ---
WS: [id number] MRI LUMBAR SPINE WITH AND WITHOUT CONTRAST HISTORY: back pain, CT read as cannot r/o discitis COMPARISON: Prior MRI 05/28/2024, CT 04/24/2025 TECHNIQUE: Sagittal and axial multisequence imaging is submitted. Sagittal and axial T1 fat sat sequences post-MultiHance 13 cc IV. Note: Increasing GRF and creatinine. Ordering physician is aware of increasing creatinine and risk of further injury with gadolinium. Ordering physician is aware of the increased risk for contrast injection and finds it necessary for further evaluation of the spine. Normal lumbar alignment with no compression fractures or marrow edema. Mild concave deformity superior endplate of T12. Disc spaces and vertebral body heights are well-preserved. Conus terminates normally at L1-2 disc level. L1-L2: Normal. L2-L3: Mild facet and ligamentum flavum hypertrophy. L3-L4: Very slight asymmetric disc bulging. Very slight LEFT foraminal narrowing as seen on the prior study. L4-L5: Mild annular disc bulging with ligamentum flavum and facet arthritis. No stenosis. L5-S1: Mild annular disc bulging with mild facet arthritis. Tiny central disc protrusion. No stenosis. Normal retroperitoneum. LEFT renal cyst measures 11 mm. No discitis or osteomyelitis. No paravertebral soft tissue. No facet joint enhancement. MR/MR lumbar spine wo/w con [id number] IMPRESSION: 1. No discitis or osteomyelitis. 2. No significant loss of disc space or vertebral body height. 3. Minimal LEFT foraminal narrowing at L3-4. 4. No high-grade central or foraminal stenosis.
[2025-04-26] MEDS: oxyCODONE-APAP 10-325 mg Tablet 1 TAB PO ×2 (09:49→16:18)
--- NOTE | 2025-04-26 10:14 | PC.NURSE ---
MRI orders received. Scheduled time is 1030. Patient informed nurse of claustrophobia during MRI. Received orders for Ativan. Given at 1010
[2025-04-26] MEDS: gadobenate dimeglumine 20 mL vial 13 ML IV (11:24)
--- NOTE | 2025-04-26 13:32 | P.PN_ITS ---
Subjective 2 Subjective: Patient states that she tries to harm herself when the pain is uncontrolled. She has self mutilation arambula on her thighs. She tells me she is in severe pain in the mid back that radiates into her abdomen. She states that this has been worked up and no etiology found. According to her she has been released from some pain management clinics. Her doctors have stopped her opioid usage. Of note while the patient was at [facility] status post left AKA patient was found to have cervical spine abnormalities requiring surgery. That helped her neck pain but not her back pain she states She also reports that the Lyrica and cyclobenzaprine has helped her back pain MRI of the lumbar spine was done approximately a year ago: MR/MR lumbar spine wo con* [id number] IMPRESSION: 1. Mild lumbar curve. No acute compress ion. 2. No high-grade central canal stenosis . 3. Mild annular bulging L4-L5 and L5-S1 with slight narrowing of the subarticular recess. 4. Mild LEFT L3-4 foraminal narrowing. Vitals/I&O/Wt Last Vital Signs Temp 97.7 F 04/26/25 08:30 Pulse 98 04/26/25 12:30 Resp 13 04/26/25 12:30 BP 135/64 04/26/25 12:30 Pulse Ox 97 04/26/25 12:30 O2 Del Method Room Air 04/26/25 12:30 04/25/25 04/26/25 04/26/25 22:59 06:59 14:59 Intake Total 1363.75 / 2029.74 50 / 2079.74 2977.5 / 2977.5 Output Total 470 / 470 650 / 1120 525 / 525 Balance 893.75 / 1559.74 -600 / 959.74 2452.5 / 2452.5 Weight last 48 hrs Weight 66.9 kg Weight 66.905 kg Weight 66.134 kg Physical Exam 2 Narrative: Alert and oriented x 4 Heart is regular normal S1-S2 without murmurs clicks gallops rubs Lungs are clear to auscultation without wheezes rales rhonchi Abdomen soft nontender nondistended positive bowel sounds Left AKA right BKA no significant edema and stumps Back no palpable back pain Skin multiple scars on back and recent excoriation on thighs Urinary Catheter Management: Riojas: Cath Placed During This Visit: yes Reason for Continuing Indwelling Catheter: Accurate Measurement of Urinary Output in Critically Ill Patients Urinary Catheter Date of Insertion: 04/24/25 Urinary Catheter Time of Insertion: 23:40 Data 04/26/25 05:01 04/26/25 05:01 Micro: Microbiology 04/25/25 16:05 Urine Culture - Preliminary Urine,Clean Catch 04/24/25 18:10 Blood Culture - Preliminary Blood NEGATIVE TO DATE 04/24/25 15:01 Blood Culture - Preliminary Blood NEGATIVE TO DATE A&P Assessment and plan 1. Suicidal ideation: 45-year-old lady with past medical history as outlined above currently presenting to the hospital with chief complaints of suicidal ideation relating to chronic pain and depression over poor quality of life relating to being a bilateral amputee and several social stressors. Continue 96-hour hold. Patient is continued on her home dose of Seroquel. I do not see that the patient is on an antidepressant will defer to psychiatry Note: Patient has shown an interesting pattern with self-harm and self mutulization 2. Depression, unspecified depression type: Relating to several medical comorbidities and social stressors Defer treatment to psychiatry 3. Combative behavior: History of combative behavior. Currently calm 4. Opiate withdrawal: Patient states she used to be on Percocet will restart at a 10 mg dosing 5. Uncontrolled hypertension: Resolved once pain control improved 6. Acute kidney injury superimposed on CKD: Baseline creatinine seems to be around 1.8-2.5. Currently > 4 7. Leukocytosis: Resolved 8. Gastroparesis: Was started on scopolamine patch by previous physician-ideally would like to discontinue will reevaluate, Reglan every 6 hours. Monitor QTc. 9. Status post below knee amputation of right lower extremity: Status post bilateral amputation relating to past osteomyelitis and septic bursitis. She has several scratches and nail arambula over the extremities, however no gross signs of cellulitis or infection are noted today. Incision sites are well-healed. 10. Status post above-knee amputation of left lower extremity: Plan: Full code Protonix for PUD prophylaxis Renal nondialysis diet Heparin 5000 every 12 hourly for DVT prophylaxis Transfer to floor with sitter MRI lumbar spine as CT scan was read as cannot rule out discitis Had to give Ativan 1 mg prior to MRI Noted that serum creatinine was elevated however MRI contrast is not known to cause further renal abnormality PDMP PDMP Reviewed: Not Reviewed Attestations 2 Medical Necessity Statement*: Requires further hospitalization for management of suicidal ideation, 96-hour hold, opiate withdrawal, uncontrolled hypertension Coding Level of Care Code Acute Code for Chg Fwd Diagnoses Suicidal ideation R45.851 Depression, unspecified depression type F32.9 Depression Type: unspecified Combative behavior R46.89 Opiate withdrawal F11.93 Uncontrolled hypertension I10 Acute kidney injury superimposed on CKD N17.9; N18.9 Leukocytosis D72.829 Gastroparesis K31.84 Status post below knee amputation of right lower extremity Z89.511 Status post above-knee amputation of left lower extremity Z89.612
--- NOTE | 2025-04-26 17:14 | PC.NURSE ---
Shift SUmmary: Uneventful shift. Went to MRI, nothing new found to be treated. Restarted on home dose of flexeril and oxycodone added, pain has been well controlled with these changes. Hydromorphone still available PRN, but has not been needed. Calm and cooperative throughout the day. Patient denies any current desire to harm herself, but does have scratches and cuts to legs from recent self injury.
[2025-04-27] VITALS (63 sets, daily range): BP systolic 122–209; BP diastolic 63–145; PULSE 72–126; RESP 1–36; TEMP 36.8; O2SAT 94–100
[2025-04-27] MEDS: oxyCODONE-APAP 10-325 mg Tablet 1 TAB PO ×4 (01:17→20:15)
[2025-04-27 02:57] LABS: Hematocrit 22.9 % (36-47); Hemoglobin 7.10 g/dL (11.27-16.99); Mean Corpuscular HGB Conc 31.0 g/dL (30-55); Mean Corpuscular Hemoglobin 30.2 pg (27-33); Mean Corpuscular Volume 97.4 fl (85-98); Nucleated Red Blood Cells % 0 %; Platelet Count 231 10^3/cmm (157-399); Red Blood Count 2.35 10^6/uL (3.85-5.65); White Blood Count 9.27 10^3/uL (3.29-11.43)
[2025-04-27 03:23] LABS: Alanine Aminotransferase 13 U/L (0-33); Albumin Level 3.5 g/dL (3.5-5.2); Alkaline Phosphatase 178 U/L (35-105); Anion Gap 22.0 (5-19); Aspartate Amino Transferase 17 U/L (0-32); Blood Urea Nitrogen 54 mg/dL (6-20); Calcium 8.1 mg/dL (8.5-10.5); Carbon Dioxide 17 mmol/L (22-29); Chloride 105 mmol/L (98-107); Creatinine Clr Calc Pharmacy 18.3627; Globulin 2.5 g/dL (1.3-4.6); Glucose 95 mg/dL (65-115); Magnesium 1.7 mg/dL (1.7-2.3); Osmolality Calculated 305 mOsm/kg (285-295); Potassium 4.0 mmol/L (3.5-5.1); Sodium 140 mmol/L (136-145); Total Protein 6.0 g/dL (6.6-8.7)
[2025-04-27] MEDS: NIFEdipine ER (24 hr) 30 mg Tablet PO ×2 (05:49→23:16)
[2025-04-27] MEDS: vancomycin 500 MG in sodium chloride 0.9% (plus) 100 ML 200 MG IV (07:51)
[2025-04-27] MEDS: HYDROmorphone 0.5 MG/0.5 ML INJ IVP (07:54)
[2025-04-27] MEDS: ondansetron 2 mg/ML SDV 2 mL 4 MG IVP (08:13)
[2025-04-27] MEDS: piperacillin-tazobactam 3.375 GM in sodium chloride 0.9% (plus) 50 ML IV ×2 (08:14→20:17)
--- NOTE | 2025-04-27 11:27 | PM.CONSULT ---
Providers/Reason For Consult Consulting Physician/Specialty*: [facility]/Nephrology Reason for Consult*: aCUTE ON ckd Attending Physician: Vickey Peralta DO Primary Care Provider: Monika Simpson MD History of Present Illness History of Present Illness Cherrie Solomon is a 45 year old female with With past medical history significant for chronic kidney disease stage IV followed by nephrology-[facility] as outpatient, history of right-sided BKA and left-sided AKA, hypertension, depression, peripheral neuropathy, diabetes was admitted to the hospital on 04/24/2025 for pain in the back and also with suicidal ideations. Patient has chronic pain and is on opioids intermittently. In the ER she was found to have elevated blood pressures and was initially started on Cardene drip. She is currently on Precedex for agitated behaviors. lab data on presentation Significant for creatinine of 3.6 BUN of 80s 2, hemoglobin of 8.7. Patient received IV fluids which are currently on hold. Patient has history of CKD with a baseline creatinine seems to be in the 1.5-2 range. Creatinine February 2025 was 2.5. Patient now has creatinines in the 4 range. Has Riojas catheter with good urine output . CT scan of abdomen did not show any evidence of hydronephrosis. Review of Systems Narrative: Negative Medications/Allergies Home Medications ?Medication ?Instructions ?Recorded ?Confirmed ?Last Taken ?Type quetiapine 100 mg tablet 100 mg PO BEDTIME 09/13/24 04/25/25 04/23/25 History isosorbide dinitrate 20 mg tablet 20 mg PO BID 01/06/25 04/25/25 Unknown History naloxone 4 mg/actuation nasal See Rx Instructions .Route .COMPLEX 01/06/25 04/25/25 Unknown History spray (Narcan) pregabalin 75 mg capsule (Lyrica) 75 mg PO BID #60 caps 01/30/25 04/25/25 04/24/25 Rx quetiapine 50 mg tablet 50 mg PO QAM 02/05/25 04/25/25 04/24/25 History metoclopramide HCl 10 mg tablet 5 mg PO QID 03/13/25 04/25/25 04/23/25 History nifedipine 30 mg tablet,extended 30 mg PO DAILY 03/13/25 04/25/25 04/24/25 History release atorvastatin 10 mg tablet 10 mg PO DAILY 04/25/25 04/25/25 04/24/25 History cyclobenzaprine 5 mg tablet 5 mg PO TID PRN Spasms 04/25/25 04/25/25 Unknown History Allergies Allergy/AdvReac Type Severity Reaction Status Date / Time morphine Allergy ALGY-Difficulty Verified 09/12/24 20:19 Breathing sulfamethoxazole (From Allergy ADR-Vomitin Verified 09/12/24 20:19 Bactrim) g trimethoprim (From Bactrim) Allergy ADR-Vomitin Verified 09/12/24 20:19 g Current Medications Generic Name Dose Route Start Last Admin Trade Name Freq PRN Reason Stop Dose Admin Cyclobenzaprine HCl 5 mg 04/26/25 09:24 04/27/25 05:48 Cyclobenzaprine 10 Mg Tablet PO 5 mg TID PRN Administration Spasms Docusate Sodium 100 mg 04/25/25 09:00 04/27/25 08:14 Docusate Sodium 100 Mg Capsule PO Not Given BID DAWSON Heparin Sodium (Porcine) 5,000 unit 04/24/25 19:12 04/27/25 07:50 Heparin 5,000 Unit/Ml Inj 1 Ml SUBCUT Not Given Q12H DAWSON Hydromorphone HCl 0.5 mg 04/25/25 10:47 04/27/25 07:54 Hydromorphone 0.5 Mg/0.5 Ml Inj IVP 0.5 mg Q6H PRN Administration PAIN Piperacillin Sod/Tazobactam 50 mls @ 12.5 mls/hr 04/24/25 21:00 04/27/25 08:14 Sod 3.375 gm/ Sodium Chloride IV 12.5 mls/hr Q12H DAWSON Administration Insulin Human Lispro 0 unit 04/24/25 21:00 04/27/25 07:45 Insulin Lispro 100 Unit/1 Ml SUBCUT Not Given WM&BEDTIME [facility] Protocol Isosorbide Dinitrate 20 mg 04/24/25 18:15 04/27/25 08:13 Isosorbide Dinitrate 20 Mg Tablet PO 20 mg BID DAWSON Administration Metoclopramide HCl 5 mg 04/26/25 13:00 04/27/25 08:13 Metoclopramide 10 Mg Tablet PO 5 mg QID DAWSON Administration Nifedipine 30 mg 04/26/25 06:00 04/27/25 05:49 Nifedipine Er (24 Hr) 30 Mg Tablet PO 30 mg QAM DAWSON Administration Ondansetron HCl 4 mg 04/24/25 19:12 04/27/25 08:13 Ondansetron 2 Mg/Ml Sdv 2 Ml IVP 4 mg Q6H PRN Administration vomiting, or N/V if npo Oxycodone/Acetaminophen 1 tab 04/26/25 09:25 04/27/25 07:50 Oxycodone-Apap 10-325 Mg Tablet PO 1 tab Q6H PRN Administration MODERATE PAIN Pregabalin 75 mg 04/24/25 18:15 04/27/25 08:13 Pregabalin 75 Mg Capsule PO 75 mg BID DAWSON Administration Quetiapine Fumarate 100 mg 04/24/25 21:00 04/26/25 20:33 Quetiapine 100 Mg Tablet PO 100 mg BEDTIME DAWSON Administration Quetiapine Fumarate 50 mg 04/25/25 06:00 04/27/25 05:49 Quetiapine 100 Mg Tablet PO 50 mg QAM DAWSON Administration Scopolamine 1 patch 04/25/25 16:15 04/25/25 16:47 Scopolamine 1 Mg Patch TRANSDERMA 1 patch Q3D DAWSON Administration PFSH Acute PFSH: Medical History (Updated 04/26/25 @ 09:21 by Vickey Peralta DO) Back pain Acute kidney injury superimposed on CKD Chronic pain Type 1 diabetes mellitus with other skin ulcer Suicide attempt Urinary retention Septic prepatellar bursitis of left knee Hyperglycemia Anemia of chronic disease Insomnia GERD (gastroesophageal reflux disease) ALEJANDRO (generalized anxiety disorder) C. 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 CKD (chronic kidney disease) stage 2, GFR 60-89 ml/min baseline Cr is around 1.0 Diabetic foot ulcer s/p surgical intervention and eventual amputation Hyperlipidemia Coronary artery disease hx of stenting Diabetic gastroparesis Diabetes mellitus type 1 diagnosed age 15, history of peripheral neuropathy, gastroparesis and nephropathy Surgical History (Updated 04/25/25 @ 06:54 by Sonali Emery MD) Hx of angioplasty H/O esophagogastroduodenoscopy (12/31/20) Bile reflux gastritis, grade B esophagitis Hx of cholecystectomy History of amputation of right forefoot Below-knee amputation of left lower extremity S/P percutaneous endoscopic gastrostomy (PEG) tube placement H/O exploratory laparotomy x 3 Previous section x 3 S/P coronary artery stent placement x 1 Family History Unknown Diabetes extensive, type II Other Congestive heart failure (CHF) Social History Smoking and tobacco/nicotine status: former use of tobacco/nicotine Quit status (tobacco/nicotine): has quit using Former quit date comment: 15 yrs ago Alcohol intake: former Former alcohol use details: 15 yrs ago Substance/Drug Use: current Substance/Drug use frequency: daily Household members: spouse Marital status: Current occupation: disabled Sexually active: Yes (1, ) Female Reproductive History: Spontaneous abortions: No Vitals/I&O/Wt Last Vital Signs Temp 98.2 F 04/27/25 07:30 Pulse 117 H 04/27/25 09:00 Resp 19 H 04/27/25 09:00 BP 171/119 04/27/25 09:00 Pulse Ox 100 04/27/25 07:50 O2 Del Method Room Air 04/26/25 17:00 04/26/25 04/27/25 04/27/25 22:59 06:59 14:59 Intake Total 701.875 / 3679.375 48.125 / 3727.500 Output Total 300 / 825 1725 / 2550 Balance 401.875 / 2854.375 -1676.875 / 1177.500 Physical Exam Narrative: awake , alert , no distress No JVD PEERLA S1S2 RRR per report Lungs with decreased BS vanessa Abd - soft , non tender Ext - no edema Urinary Catheter Management: Riojas: Cath Placed During This Visit: yes Reason for Continuing Indwelling Catheter: Accurate Measurement of Urinary Output in Critically Ill Patients Urinary Catheter Date of Insertion: 04/24/25 Urinary Catheter Time of Insertion: 23:40 Data 04/27/25 02:17 04/27/25 02:17 Micro: Microbiology 04/25/25 16:05 Urine Culture - Preliminary Urine,Clean Catch A&P Assessment and plan 1. Acute kidney injury superimposed on CKD: 1. Acute on chronic kidney disease stage IV: Baseline creatinine seems to be in the 2 range and patient followed by nephrology-[facility] as outpatient. - Current etiology of FIONA likely prerenal in the setting of poor p.o. intake, also hemodynamic mediated due to Hypertensive urgency on presentation - will resume IVF for another 24 hours, - noted good urine output and stable electrolytes and stable volume status. - Also noted to have , nonnephrotic range with MA CR of 2109.-Likely proteinuria from diabetic nephrosclerosis and hypertension. Prior serological workup negative. - Meds reviewed 2. Suicidal ideation, management per primary 3. Hypertension:BP elevated on presentation , adjusting meds 4.Severe Anemia , check Iron studies , transfuse if Hb < 7 pt evaluated using audiovisual cart. Time spent 40 min PDMP PDMP Reviewed: Not Reviewed Consult Attestations Medical Necessity Statement: per heather Coding Level of Care Code Acute Code for Chg Fwd Diagnoses Acute kidney injury superimposed on CKD N17.9; N18.9
--- NOTE | 2025-04-27 14:07 | W.PM.NPUH&PS ---
Providers/Chief Complaint Admitting Physician: Jose A Moore MD Primary Care Provider: Monika Simpson MD Chief Complaint: SI/BACK PAIN HPI NPU History of Present Illness Cherrie Solomon is a 45 year old female who presented to the emergency department with the following report: Chief Complaint: Psychiatric Symptoms Stated Complaint: SI/BACK PAIN Time Seen by Provider: 04/24/25 14:49 History of Present Illness: 45-year-old female with a history of chronic pain syndrome, bilateral lower extremity amputations, chronic depression with recurrent suicidal ideation, self harming behaviors, diabetes, gastroparesis, hyperlipidemia, hypertension disease who presents to the emergency room by ambulance with complaints of suicidal thoughts. She says her back pain has gotten to the point that she wants to end it all. She has some superficial lacerations on her stumps from glass she had thrown on the floor. She is admitted to the ICU for definitive treatment of those issues. Given her history and presentation a psychiatric consult was requested to identify whether there was a need for continued psychiatric care. Patient is known to [facility] psychiatry through inpatient services with some very challenging admissions. Has also had some inpatient psychiatric consultations. An excerpt of her last inpatient consultation is included below for context and the fact that there have been no substantive changes. She presented to the emergency department as she has recently with significant issues with pain and as she has multiple times in the past and reporting that if her pain was not managed that she was having thoughts to kill herself. Due to her acute on chronic kidney failure and extreme high blood pressures she was admitted to the ICU for ongoing medical care. She presents today reporting that she is feeling really good. She was very pleasant when this conventional mortgage underwriter entered the room identifying that she did remember this conventional mortgage underwriter from the voice given she has significant difficulties with her sight. They were able to at address some of her pain related to her kidneys and their dysfunction but also her pain overall. She reports that things have been going better overall. She just recently welcomed a new grandchild but did not have any responsibility for caring for this 1. She reports she still has 4 grandchildren that she had been living with in the home and having significant intermediate parenting responses. She reports however she has gotten a new device to get around so she does not have to crawl. She reports that her daughter who the 4 children belong to is doing a little better. She denied any issues other than having ongoing depression. We discussed that I had spoken to the primary provider about SSRIs that are fine and renal failure requiring dialysis or just with a extremely low GFR. We discussed the risks, benefits and alternatives of starting Prozac 20 mg p.o. daily and she understood and agreed to proceed as is documented in this note. Per her 01/07/2025 [facility] inpatient psychiatric consultation: sych Consult HPI History of Present Illness Cherrie Solomon is a 44 year old female who presented to the emergency department with the following report: Chief Complaint: Psychiatric Symptoms Stated Complaint: fell pain all down spine Time Seen by Provider: 01/06/25 13:12 History of Present Illness: 44-year-old woman with history of chronic pain syndrome, bilateral amputations 1 AKA of 1 BKA. Multiple back surgeries. She says she had osteomyelitis at one point. She presents today with complaint of suicidal ideation. She says she wants to wheel her wheelchair out into traffic. She is moving frequently and seems agitated. She says she ran out of her pain meds. She blames her physician for this. She says they did not call anyone when they were supposed to. Says this is contributing to her suicidal thoughts. Says she hurts everywhere. No new pain. However she does states she fell and hit her head yesterday. The patient in the emergency department creating a concern for how to manage her given past hospitalizations and her coming off and threatening to harm herself if her pain is unmanaged in a way that she is okay with. Psychiatric consult was requested to assist with this matter. Patient presents today reporting that she has been doing okay and then there was an issue related to her getting her medication. She reports that she understands why people have concerns about managing her with narcotics and she reports that mostly she was just trying to get things together with her outpatient provider but that person was not available which created these concerns. She made statements that she acknowledges were lethal but she reports she is not in a place where she wants to kill herself or harm anyone else. We discussed them exploring different options when it comes to medication and then identifying where to go from there. She reports that she will be safe if she is discharged and was able to contract for safety. We reviewed her past records and there were no new issues or concerns psychosocially. An excerpt from her last psychiatric consult is included below for context and the fact there have been no substantive changes. Per her 11/01/2024 [facility] inpatient psychiatric consultation: Chief Complaint: self harm, severe abd MHE HPI NPU History of Present Illness Cherrie Solomon is a 44 year old female with a history of multiple medical problems most recently discharged from the neuropsychiatric unit in May 2024 who presented to the emergency department with complaints of having suicidal thoughts and intractable pain. She reports that she has been stabbing her thigh with a fork repeatedly over the past few days. The patient reports that she has not been able to manage her pain in her thighs. She reports that she has been having more panic attacks. She reports having strong chronic struggles with anxiety. She minimized any drug or alcohol use other than marijuana use for managing pain. Her urine drug screen was negative for all drugs and alcohol other than marijuana. She reports that she has been compliant with pain medications but states that no one was willing to give her Percocets for pain despite the patient denying any history of misuse of opiates. Patient endorses some feelings of hopelessness. She denies any auditory hallucinations. She denies any current manic symptoms. She reports some diminished appetite. She reports that she has been more frequently tearful. She reported no overall change in stressors other than the continued inability to tolerate pain and anxiety. The patient was admitted to the neuropsychiatric unit for further evaluation and treatment. Upon arrival, the patient had significant elevation in systolic and diastolic blood pressure in was transferred this morning on 11/01/2024 to the crisis stabilization unit for continued treatment. She reported no substantial differences since her last psychiatric hospitalization. The patient had reported to having panic attacks on triggered on a nearly daily basis. She reports some difficulties with falling asleep secondary to anxiety and pain. Psychiatric history: Multiple inpatient psychiatric hospitalizations. No current outpatient psychiatric services other than med management by primary care physician. Medical history: GERD, hyponatremia, septic prepatellar bursitis of the left knee, urinary retention, acute renal failure, hyponatremia C. 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 Medications: Amlodipine, Keflex, cyclobenzaprine, Cymbalta 20 mg twice a day, hydroxyzine, metoclopramide, pantoprazole, Paxil 40 mg daily, pregabalin 50 mg twice a day, Seroquel 100 mg at night, ropinirole 1 mg at night Excerpt from NPU Discharge summary from 06/03/24 Discharge Diagnosis (1) Anemia of chronic disease: Status: Inactive (2) Suicide ideation: Status: Resolved (3) Acute flank pain: Status: Acute (4) Depression: Status: Acute Qualifiers: Depression Type: unspecified Qualified Code(s): F32.9 - Major depressive disorder, single episode, unspecified (5) Below-knee amputation of left lower extremity: Status: Inactive (6) ALEJANDRO (generalized anxiety disorder): Status: Inactive (7) Diabetic ophthalmopathy: Status: Acute (8) Diabetic gastroparesis: Status: Acute (9) Insomnia: Status: Inactive Qualifiers: Insomnia type: due to medical condition Qualified Code(s): G47.01 - Insomnia due to medical condition (10) Diabetes mellitus type 1: Status: Acute Qualifiers: Diabetes mellitus complication status: with hyperglycemia Qualified Code(s): E10.65 - Type 1 diabetes mellitus with hyperglycemia Permanent problem details: diagnosed age 15, history of peripheral neuropathy, gastroparesis and nephropathy (11) GERD (gastroesophageal reflux disease): Status: Inactive Qualifiers: Esophagitis presence: without esophagitis Qualified Code(s): K21.9 - Gastro-esophageal reflux disease without esophagitis (12) Amputation of toe of right foot: Status: Acute (13) Combative behavior: Status: Acute (14) Suicide attempt: Status: Inactive (15) History of financial difficulties: Status: Acute (16) Infection of amputation stump: Status: Acute (17) Pain of amputation stump of left lower extremity: Status: Acute (18) Low back pain: Status: Acute Reason for Visit ch eval Brief History: Providers/Chief Complaint Admitting Physician: Sonali Emery MD Primary Care Provider: Monika Simpson MD Chief Complaint: Psych eval HPI NPU History of Present Illness Cherrie Solomon is a 44 year old female who presented to the emergency department with the following report: Chief Complaint: Psychiatric Symptoms Stated Complaint: Psych eval Time Seen by Provider: 05/23/24 22:16 History of Present Illness: 44-year-old female well-known to the emergency department service. She presents by EMS ambulance. They were called for self-harm behavior and suicidal ideations. She presents combative, not answering questions, thrashing around in bed. She is currently having to be held down and striking at staff. No distinct history is able to be obtained from this patient. She was admitted to the ICU for definitive treatment of those issues. She was placed on a 96-hour hold secondary to her behaviors and reports of lethality. A psychiatric consult was requested to assist in determining how to manage her situation. She is known to inpatient and outpatient psychiatric services through treatment at [facility]. Her last inpatient discharge was in October 2021 and an excerpt of the discharge summary is included below for context. She was a limited historian today as she had just received some medications because as the Precedex was being lowered she became combatant and was trying to bang her head. She presents reporting that since we last saw her back in 2021 that she has been doing okay, staying at the same residence with her daughter her 3 grandchildren and her . But she denied being actively involved in treatment. 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 She reports that she came here because she was in significant pain and that she felt like killing herself if the pain was not managed. We discussed speaking to her as she got clear and trying to figure out if there is some adjustments we can make in medication in order to assist her with her depression. Per her 11/13/2021 [facility] inpatient psychiatric discharge summary: History of Present Illness Cherrie Solomon is a 41 year old female admitted through our emergency department with the following report: HPI: [41]yo patient w/ hx of SI/self-harm behavior BIBA for significant r side flank pain and desire for suicide. Patient tells me that for the last day she has sustained significant right-sided flank pain. Patient has history of renal colic. Patient says that she can no longer take the pain started hitting her head against the wall. on arrival, the patient is AAOx3 and cooperative with my evaluation. No focal complaints of chest pain, shortness of breath, palpitations, N/V, focal GI/ complaints. Currently reports SI. No complaints of hallucinations. She was admitted to the neuropsychiatry unit for definitive treatment of these issues. She says that she has been doing fairly well up until yesterday. Her pain increased yesterday. She was good.. She said that she has been trying to cut down some on her pain medications but had plenty. She denies anything bad happening. She denies any extra stress or increased activity. She has been frequently putting her finger down her throat making herself throw up. He says that is to divert her thoughts from the pain. She says that her pain currently is about 8. She was given some oxycodone at 1:30 AM but they say that she made herself throw up shortly afterwards and probably did not get much effect.HPI: [41]yo patient w/ hx of SI/self-harm behavior BIBA for significant r side flank pain and desire for suicide. Patient tells me that for the last day she has sustained significant right-sided flank pain. Patient has history of renal colic. Patient says that she can no longer take the pain started hitting her head against the wall. on arrival, the patient is AAOx3 and cooperative with my evaluation. No focal complaints of chest pain, shortness of breath, palpitations, N/V, focal GI/ complaints. Currently reports SI. No complaints of hallucinations. Below is the discharge summary from her most recent admission: BACK PAIN Brief History: History of Present Illness Cherrie Solomon is a 41 year old female admitted through the emergency department with the following report: Chief Complaint: Psychiatric Symptoms Stated Complaint: BACK PAIN Time Seen by Provider: 09/09/21 18:41 History of Present Illness: HPI Narrative: This is a 41-year-old female who left our neuropsychiatric unit yesterday. She had come in because she was banging her head against the wall, evidently due to uncontrolled chronic pain she had said. EMS was called her house again with the same complaint today. She was violent, thrashing around, banging her head on the wall. After being loaded into the ambulance, she proceeded to bang her head on the side railing and the wall of the ambulance. She was given ketamine in route for this. On my evaluation she is not answering questions. She is sitting up in the bed and three-point restraints (she has a lower extremity amputation) banging her head on the side railing. She did tell EMS that she wanted to . MD complaint: suicidal ideation and altered mental status Onset (ago): hour(s) Duration: constant History of same: Yes Relieving factors: none Exacerbating factors: none Context: not taking psychiatric medications Associated psychiatric symptoms: depression Associated symptoms: Reports other Treatments prior to arrival: physical restraints and chemical restraints She was admitted to the neuropsychiatry unit for definitive treatment of her issues. She continues to be trying to get herself complaining of severe back pain. She does not know what was different. She continues to take pain medication and says that she still has some left. She used marijuana on the day that she went home but not yesterday. She was unable to say how bad the pain was the day that she went home but it was much worse yesterday. She says that she was not much more active yesterday. He does not think that increased activity because the pain to be worse. She says that she wants to because the pain is so bad. She reports that she has no idea what caused her pain to be worse. Her urine drug screen was only positive for marijuana. Multiple admissions and each time she comes in with pain so bad that she wants to . She was just released from the hospital 2 days ago with the following discharge summary: Diagnoses at Discharge Discharge Diagnosis (1) Intentional self-harm: Status: Acute (2) Suicidal ideation: Status: Acute (3) Insomnia: Status: Acute Qualifiers: Insomnia type: due to medical condition Qualified Code(s): G47.01 - Insomnia due to medical condition (4) GERD (gastroesophageal reflux disease): Status: Acute Qualifiers: Esophagitis presence: without esophagitis Qualified Code(s): K21.9 - Gastro-esophageal reflux disease without esophagitis (5) ALEJANDRO (generalized anxiety disorder): Status: Acute (6) Noncompliance: Status: Acute (7) Dehiscence of amputation stump: Status: Acute (8) Foot osteomyelitis, right: Status: Acute Qualifiers: Osteomyelitis type: other chronic Qualified Code(s): M86.671 - Other chronic osteomyelitis, right ankle and foot (9) Diabetic ophthalmopathy: Status: Acute (10) Coronary artery disease: Status: Acute Permanent problem details: hx of stenting Qualifiers: Coronary Disease-Associated Artery/Lesion type: [place] artery [place] vs. transplanted heart: comanche heart Associated angina: without angina Qualified Code(s): I25.10 - Atherosclerotic heart disease of [place] coronary artery without angina pectoris (11) Diabetic neuropathy: Status: Acute Qualifiers: Diabetes mellitus type: type 1 Diabetes mellitus complication detail: diabetic polyneuropathy Qualified Code(s): E10.42 - Type 1 diabetes mellitus with diabetic polyneuropathy (12) Amputation of toe of right foot: Status: Acute Reason for Visit: SELF HARM COMBATIVE Brief History: History of Present Illness Cherrie Solomon is a 41 year old female who presented to the emergency department with the following report: Chief complaint: Psychiatric Symptoms Stated complaint: SELF HARM COMBATIVE Time Seen by Provider: 08/29/21 11:08 History of Present Illness: HPI narrative: HPI: [41]yo patient w/ hx of depression BIBA for suicidal ideation. Patient was found banging her head against the wall. EMS gave patient 250mg of IM ketamine to calm her down and stop self-harm/ On arrival, the patient is AAOx3 and cooperative with my evaluation. No focal complaints of chest pain, shortness of breath, palpitations, N/V, focal GI/ complaints. Denies HI currently. No complaints of hallucinations. Onset: acute Duration: ongoing Location: home Severity: severe Associated symptoms: Deny chest pain, dyspnea, nausea, rash, palpitations or vomiting. He was admitted to the neuropsychiatric unit for definitive treatment of those issues. He presents reporting that this is her first psychiatric hospitalization but she is known to this conventional mortgage underwriter through inpatient consult. Reports he had outpatient services at [facility] [place] in [place] and reports that she take Cymbalta and Seroquel. She denies smoking cigarettes drinking alcohol, does report daily marijuana the other illicit drugs but does report getting pain medication and reports that he never been to rehab or had a DUI. She essentially reports that she is here for the same reason she was on the inpatient MedSurg unit when I saw her before which is being so depressed because her pain is not well managed. She has a abrasion on the middle of her forehead which she reports is from banging her head from frustration. She also showed me her thigh and for that the bruising that was notable on the right thigh related to taking a fork and hitting her leg but not piercing the skin. About the lack of expertise that the unit has in relation to pain management and that her best option to get her pain management would be returning to the pain management clinic. There is not to be any doctors in the hospital that are going to suggest that they had a better understanding of her situation and that her pain clinic does. She had not been taking her Cymbalta so we discussed the risk-benefit alternatives of restarting the Cymbalta and 20 mg twice a day with a plan to discharge at the 30 mg that she was taking.. An excerpt from the consult is included below for context. Though she has had other consultation contact later in the year last year. Hospital Course She slowly acclimated to the individual, group and milieu therapies provided. Like most of her hospitalizations, she presented with significant medical concerns specifically for pain and endorsing lethality secondary to her pain not being managed. She spent the initial part of the hospitalization going back and forth between medicine and the neuropsychiatric unit. She was multiple times restrained with the difficulties that come with restraining a double amputee. Eventually we did increase her Paxil to 40 mg p.o. daily and started her on Cymbalta 20 mg p.o. twice daily. The medical team had significant input and involvement and attempted to manage her pain and create a follow-up with pain management given that this pattern of her presenting like this with pain as a focal point of her concerns is common. She had a positive response to the medications provided by both the psychiatric team and the hospitalist team. She work with the social work team to get appropriate outpatient resources and follow-ups. She was able to contract for safety outside the hospital prior to discharge. She had significant improvement from initial presentation. During the hospitalization, patient had routine laboratory studies which were within normal limits except for few outliers. Additionally there was a general medical evaluation which was also within normal limits and revealed no new acute processes. Any concerns that did arise during the stay were managed by the hospitalist team. Discharge Summary: At the time of discharge, she denied psychosis or lethality. Mood and anxiety were well managed. Patient endorsed a plan to avoid all drugs of abuse and follow-up with the aftercare recommendations of the treatment team. Patient was evaluated and deemed to be absent credible lethality, and had achieved the maximum benefit from an inpatient hospitalization, so was discharged. Meds NPU Home Medications ?Medication ?Instructions ?Recorded ?Confirmed ?Last Taken ?Type quetiapine 100 mg tablet 100 mg PO BEDTIME 09/13/24 04/25/25 04/23/25 History isosorbide dinitrate 20 mg tablet 20 mg PO BID 01/06/25 04/25/25 Unknown History naloxone 4 mg/actuation nasal See Rx Instructions .Route .COMPLEX 01/06/25 04/25/25 Unknown History spray (Narcan) pregabalin 75 mg capsule (Lyrica) 75 mg PO BID #60 caps 01/30/25 04/25/25 04/24/25 Rx quetiapine 50 mg tablet 50 mg PO QAM 02/05/25 04/25/25 04/24/25 History metoclopramide HCl 10 mg tablet 5 mg PO QID 03/13/25 04/25/25 04/23/25 History nifedipine 30 mg tablet,extended 30 mg PO DAILY 03/13/25 04/25/25 04/24/25 History release atorvastatin 10 mg tablet 10 mg PO DAILY 04/25/25 04/25/25 04/24/25 History cyclobenzaprine 5 mg tablet 5 mg PO TID PRN Spasms 04/25/25 04/25/25 Unknown History Allergies Allergy/AdvReac Type Severity Reaction Status Date / Time morphine Allergy ALGY-Difficulty Verified 09/12/24 20:19 Breathing sulfamethoxazole (From Allergy ADR-Vomitin Verified 09/12/24 20:19 Bactrim) g trimethoprim (From Bactrim) Allergy ADR-Vomitin Verified 09/12/24 20:19 g PFSH NPU PFSH: Medical History (Updated 04/28/25 @ 08:58 by Sha Martinez MD) Back pain Acute kidney injury superimposed on CKD Chronic pain Type 1 diabetes mellitus with other skin ulcer Suicide attempt Urinary retention Septic prepatellar bursitis of left knee Hyperglycemia Anemia of chronic disease Insomnia GERD (gastroesophageal reflux disease) ALEJANDRO (generalized anxiety disorder) C. 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 Toe infection PTSD (post-traumatic stress disorder) Gastroparesis (~11/2024) Depression Suicidal ideation Nausea & vomiting Diabetic ophthalmopathy Hypertension Foot osteomyelitis, right Non-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 CKD (chronic kidney disease) stage 2, GFR 60-89 ml/min baseline Cr is around 1.0 Diabetic foot ulcer s/p surgical intervention and eventual amputation Hyperlipidemia Coronary artery disease hx of stenting Diabetic gastroparesis Diabetes mellitus type 1 diagnosed age 15, history of peripheral neuropathy, gastroparesis and nephropathy Surgical History (Updated 04/27/25 @ 14:29 by Vickey Peralta DO) Status post below knee amputation of right lower extremity Hx of angioplasty H/O esophagogastroduodenoscopy (12/31/20) Bile reflux gastritis, grade B esophagitis Hx of cholecystectomy History of amputation of right forefoot Below-knee amputation of left lower extremity S/P percutaneous endoscopic gastrostomy (PEG) tube placement H/O exploratory laparotomy x 3 Previous section x 3 S/P coronary artery stent placement x 1 Family History Unknown Diabetes extensive, type II Other Congestive heart failure (CHF) Social History Smoking and tobacco/nicotine status: former use of tobacco/nicotine Quit status (tobacco/nicotine): has quit using Former quit date comment: 15 yrs ago Alcohol intake: former Former alcohol use details: 15 yrs ago Substance/Drug Use: current Substance/Drug use frequency: daily Household members: spouse Marital status: Current occupation: disabled Sexually active: Yes (1, ) Female Reproductive History: Spontaneous abortions: No Mental Status Exam MSE Comments: This is an overweight white female in hospital scrubs with limited grooming and eye contact with notable below-knee amputation bilaterally lying in hospital bed. No abnormal involuntary motor movements were appreciated. She was?cooperative with exam in no acute distress.? Speech was normal in rate but slurred/slightly dysarthric and normal in volume. ?Mood described as a little depressed but much better than yesterday, affect was congruent and slightly subdued. Thought process was linear and logical. Thought content: Patient denied suicidal ideation and denied homicidal ideation. There was no evidence of delusional thinking. She denied auditory or visual hallucinations and did not appear to be responding to internal stimuli. Attention and concentration were intact and memory appeared reliable but no more formally tested. She was alert and oriented x 3. Insight and judgment are improving and impulse control is limited but improving Vitals/I&O/Wt Last Vital Signs Temp 98.2 F 04/27/25 07:30 Pulse 88 04/27/25 12:15 Resp 17 04/27/25 13:51 BP 171/82 04/27/25 12:15 Pulse Ox 100 04/27/25 13:51 O2 Del Method Room Air 04/27/25 12:15 04/26/25 04/27/25 04/27/25 22:59 06:59 14:59 Intake Total 701.875 / 3679.375 48.125 / 3727.500 240 / 240 Output Total 300 / 825 1725 / 2550 Balance 401.875 / 2854.375 -1676.875 / 1177.500 240 / 240 Physical Exam Urinary Catheter Management: Riojas: Cath Placed During This Visit: yes Reason for Continuing Indwelling Catheter: Accurate Measurement of Urinary Output in Critically Ill Patients Urinary Catheter Date of Insertion: 04/24/25 Urinary Catheter Time of Insertion: 23:40 Data NPU 04/28/25 03:04 04/28/25 03:04 Micro: Microbiology 04/25/25 16:05 Urine Culture - Final Urine,Clean Catch Microbiology 04/25/25 16:05 Urine,Clean Catch Urine Culture - Final A&P Assessment and plan 1. Dysthymic disorder: 2. Suicidal ideation: 3. ALEJANDRO (generalized anxiety disorder): 4. Panic attacks: 5. Depression: 6. Hypertension: 7. Malignant hypertension: 8. Type 1 diabetes mellitus with other skin ulcer: 9. Diabetes mellitus type 1: 10. Gastroparesis: 11. Chronic kidney disease: 12. Acute kidney injury superimposed on CKD: 13. Acute on chronic renal failure: Plan: This is a 45 year old with multiple medical problems currently with acute renal failure with history of depression, anxiety and borderline personality traits endorsing suicidal ideation on admission with history of noncompliance with medications presented on a 96-hour hold for consultation in the ICU. 1. Continue current medication. Start Prozac 20 mg p.o. daily 2. Patient appears to be doing quite well considering the circumstances. No need for ongoing acute psychiatric care. Will discontinue/rescind 96-hour hold. 3. No need for one-to-one. 4. Patient without credible lethality.. 5. Agree with discharge when medically stable. 6. Will continue to follow PDMP PDMP Reviewed: Not Reviewed Involuntary Hold Information Hold Status: Date/Time Hold Expires: 04/30/25 @ 1201am 96 Hour Hold: 96 Hour Involuntary Admission: No Attestations NPU Medical Necessity Statement*: N/A. Please see primary team note for medical necessity. Coding Level of Care Code Acute Code for Chg Fwd Diagnoses Dysthymic disorder F34.1 Suicidal ideation R45.851 ALEJANDRO (generalized anxiety disorder) F41.1 Panic attacks F41.0 Depression F32.A Hypertension I10 Malignant hypertension I10 Type 1 diabetes mellitus with other skin ulcer E10.622; L98.499 Diabetes mellitus type 1 E10.9 Gastroparesis K31.84 Chronic kidney disease N18.9 Acute kidney injury superimposed on CKD N17.9; N18.9 Acute on chronic renal failure N17.9; N18.9
--- NOTE | 2025-04-27 14:18 | P.PN_ITS ---
Subjective 2 Subjective: Patient seen sitting up in bed after eating lunch. She states that she had a bad morning with pain. She had to get IV Dilaudid. But she is feeling better now She reported that she was on Cymbalta for an antidepressant to also help with chronic pain but this was discontinued and she did not know why Lastly she shared that she sees a scanning coordinator in [place] at [facility]. Azalia Covarrubias MD. Vitals/I&O/Wt Last Vital Signs Temp 98.2 F 04/27/25 07:30 Pulse 88 04/27/25 12:15 Resp 17 04/27/25 13:51 BP 171/82 04/27/25 12:15 Pulse Ox 100 04/27/25 13:51 O2 Del Method Room Air 04/27/25 12:15 04/26/25 04/27/25 04/27/25 22:59 06:59 14:59 Intake Total 701.875 / 3679.375 48.125 / 3727.500 240 / 240 Output Total 300 / 825 1725 / 2550 Balance 401.875 / 2854.375 -1676.875 / 1177.500 240 / 240 Physical Exam 2 Narrative: Alert and oriented x 4 Heart is regular normal S1-S2 without murmurs clicks gallops rubs Lungs are clear to auscultation without wheezes rales rhonchi Abdomen soft nontender nondistended positive bowel sounds Left AKA right BKA no significant edema and stumps Back no palpable back pain Skin multiple scars on back and recent excoriation on thighs Urinary Catheter Management: Riojas: Cath Placed During This Visit: yes Reason for Continuing Indwelling Catheter: Accurate Measurement of Urinary Output in Critically Ill Patients Urinary Catheter Date of Insertion: 04/24/25 Urinary Catheter Time of Insertion: 23:40 Data 04/27/25 02:17 04/27/25 02:17 Micro: Microbiology 04/25/25 16:05 Urine Culture - Final Urine,Clean Catch A&P Assessment and plan 1. Suicidal ideation: I discussed with Dr. Martinez for him to reassess now that patient is improved and her pain is controlled markedly better. Anticipate withdrawal of 96-hour hold. We also discussed depression and appropriate medication inpatient with late stage renal disease. It turns out Cymbalta was likely discontinued because of her renal dysfunction. Dr. Martinez recommends Prozac will start at 20 mg once a day 2. Depression, unspecified depression type: As above 3. Opiate withdrawal: Resolved currently on regular opiate dosing 4. Uncontrolled hypertension: Patient is continued on home medications. Nephrology commented that they will adjust. I do not see a change as of yet 5. Acute kidney injury superimposed on CKD: Baseline creatinine seems to be around 1.8-2.5. Currently > 4 6. Leukocytosis: Resolved 7. Gastroparesis: Continue Reglan however DC scopolamine as this may affect urine output 8. Status post above-knee amputation of left lower extremity: Plan: Patient has transfer orders. Dr. Martinez to reevaluate for 96-hour hold and sitter. MRI without significant change from a year prior. No spinal cord stenosis no obvious need for surgical intervention As above will start Prozac for depression which will hopefully help with chronic pain syndrome Consult placed to nephrology for assistance with renal dysfunction workup for anemia and hypertension control PDMP PDMP Reviewed: Not Reviewed Attestations 2 Medical Necessity Statement*: Requires further hospitalization for management of suicidal ideation, 96-hour hold, opiate withdrawal, uncontrolled hypertension Coding Level of Care Code Acute Code for [facility] Fwd Diagnoses Suicidal ideation R45.851 Depression, unspecified depression type F32.9 Depression Type: unspecified Opiate withdrawal F11.93 Uncontrolled hypertension I10 Acute kidney injury superimposed on CKD N17.9; N18.9 Leukocytosis D72.829 Gastroparesis K31.84 Status post above-knee amputation of left lower extremity Z89.612
--- NOTE | 2025-04-27 23:06 | PC.NURSE ---
Contacted Dr Ramirez regarding patient's hypertension with systolic measurements in the 190s. Patient did not have any PRN antihypertensives ordered and next dose of nifedipine ER was not until 0600. Received order for a one time dose of nifedipine ER 30 mg NOW and to increase patient's QAM dose of nifedipine ER from 30 mg to 60 mg. Orders placed, see OCT.
[2025-04-28] VITALS (68 sets, daily range): BP systolic 90–210; BP diastolic 54–133; PULSE 78–117; RESP 10–29; TEMP 37.4–37.7; O2SAT 91–99
[2025-04-28] MEDS: oxyCODONE-APAP 10-325 mg Tablet 1 TAB PO ×2 (03:07→12:08)
[2025-04-28 03:45] LABS: Hematocrit 23.0 % (36-47); Hemoglobin 7.20 g/dL (11.27-16.99); Mean Corpuscular HGB Conc 31.3 g/dL (30-55); Mean Corpuscular Hemoglobin 29.6 pg (27-33); Mean Corpuscular Volume 94.7 fl (85-98); Nucleated Red Blood Cells % 0 %; Platelet Count 237 10^3/cmm (157-399); Red Blood Count 2.43 10^6/uL (3.85-5.65); White Blood Count 7.27 10^3/uL (3.29-11.43)
[2025-04-28 04:13] LABS: Alanine Aminotransferase 11 U/L (0-33); Albumin Level 3.5 g/dL (3.5-5.2); Alkaline Phosphatase 173 U/L (35-105); Anion Gap 18.9 (5-19); Aspartate Amino Transferase 15 U/L (0-32); Blood Urea Nitrogen 51 mg/dL (6-20); Calcium 8.0 mg/dL (8.5-10.5); Carbon Dioxide 18 mmol/L (22-29); Chloride 108 mmol/L (98-107); Creatinine Clr Calc Pharmacy 17.9148; Globulin 2.3 g/dL (1.3-4.6); Glucose 107 mg/dL (65-115); Osmolality Calculated 306 mOsm/kg (285-295); Potassium 3.9 mmol/L (3.5-5.1); Sodium 141 mmol/L (136-145); Total Protein 5.8 g/dL (6.6-8.7)
[2025-04-28] MEDS: NIFEdipine ER (24 hr) 30 mg Tablet 60 MG PO (05:07)
[2025-04-28] MEDS: hyDRALAzine 20 mg/mL INJ 1 mL IVP (05:59)
[2025-04-28] MEDS: HYDROmorphone 0.5 MG/0.5 ML INJ IVP (06:07)
[2025-04-28] MEDS: ondansetron 2 mg/ML SDV 2 mL 4 MG IVP (06:15)
[2025-04-28] MEDS: piperacillin-tazobactam 3.375 GM in sodium chloride 0.9% (plus) 50 ML IV (08:45)
--- NOTE | 2025-04-28 12:24 | P.PN_ITS ---
Subjective 2 Subjective: BP fluctuating Medications: Reviewed: Yes Vitals/I&O/Wt Last Vital Signs Temp 99.9 F H 04/28/25 07:30 Pulse 109 H 04/28/25 09:15 Resp 17 04/28/25 12:08 BP 159/86 04/28/25 09:15 Pulse Ox 95 04/28/25 12:08 O2 Del Method Room Air 04/28/25 09:00 04/27/25 04/28/25 04/28/25 22:59 06:59 14:59 Intake Total 1110 / 1350 3648.75 / 4998.75 Output Total 1999 Balance -890 / -650 3648.75 / 2998.75 Physical Exam 2 Narrative: awake , alert , no distress No JVD PEERLA S1S2 RRR per report Lungs with decreased BS vanessa Abd - soft , non tender Ext - no edema Urinary Catheter Management: Riojas: Cath Placed During This Visit: yes Reason for Continuing Indwelling Catheter: Accurate Measurement of Urinary Output in Critically Ill Patients Urinary Catheter Date of Insertion: 04/24/25 Urinary Catheter Time of Insertion: 23:40 Data 04/28/25 03:04 04/28/25 03:04 Micro: Microbiology 04/25/25 16:05 Urine Culture - Final Urine,Clean Catch A&P Assessment and plan 1. Acute kidney injury superimposed on CKD: 1. Acute on chronic kidney disease stage IV: Baseline creatinine seems to be in the 2 range and patient followed by nephrology-[facility] as outpatient. - Current etiology of FIONA likely prerenal in the setting of poor p.o. intake, also hemodynamic mediated due to Hypertensive urgency on presentation - s/p IVFs - noted good urine output and stable electrolytes and stable volume status. - Also noted to have , nonnephrotic range with MA CR of 2109.-Likely proteinuria from diabetic nephrosclerosis and hypertension. Prior serological workup negative. - Meds reviewed 2. Suicidal ideation, management per primary 3. Hypertension:BP elevated on presentation , adjusting meds - added PRN clonidine , on PO hydralazine and nifedipine 4.Severe Anemia , check Iron studies , transfuse if Hb < 7 pt evaluated using audiovisual cart. Time spent 40 min PDMP PDMP Reviewed: Not Reviewed Attestations 2 Medical Necessity Statement*: per heather Coding Level of Care Code Acute Code for Chg Fwd Diagnoses Acute kidney injury superimposed on CKD N17.9; N18.9
--- NOTE | 2025-04-28 12:38 | PM.DCS ---
Discharge Providers Date of Admission: 04/24/25 18:02 Date of Discharge: April 28, 2025 Attending Provider at Admission: Jose A Moore MD Attending Provider at Discharge: Vickey Peralta DO Consults: Dr. Barbour- nephrology Dr. Martinez?psychiatry Primary Care Provider: Monika Simpson MD Diagnoses at Discharge Discharge Diagnosis 1. 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 Completed an extended course of antibiotics at [facility] in December 2024. Patient has chronic pain and recently has had not been able to get a steady supply of opiates. She presented to the emergency room today with severe pain affecting her bilateral lower extremities and her back. She reported suicidal ideation as she has in the past related to distress from being in constant pain. In view of her severe agitation and risk of harm to self and current caregivers, she was started on a Precedex infusion and has been brought to the ICU on a 96-hour hold. She was also started on a Cardene drip Hospital Course Hospital Course Patient was admitted to the ICU. She was placed on a 96-hour hold for suicide ideation. She was placed on a Cardene drip as well as a Precedex drip. Patient also experienced nausea and vomiting. CT scan of the abdomen pelvis was without acute abnormality. She was started on Reglan and scopolamine patch Patient's leukocytosis was felt to be related to the acute agitation and vomiting and dehydration. She was started on empiric antibiotics however no source was identified and this was discontinued the day prior to discharge Patient's blood pressure responded to the Cardene and this was able to be weaned off quickly. But she did remain with a labile blood pressure. Most likely due to the severe hypertension patient suffered acute on chronic kidney disease. With a creatinine of approximately 4 consultation was placed with nephrology. They attempted 24 hours of IV fluids however there was no change. It is suspected that the patient has acute kidney injury due to the severity of hypertension and nephrology recommended close follow-up. She will be placed on clonidine 0.1 mg as needed blood pressure over 180 systolic. Patient's pain was initially managed with Dilaudid IV. She was changed to oral medications Dilaudid IV only for breakthrough severe pain. Subsequently she underwent an MRI of lumbar spine was completed and showed no significant change and no spinal cord impingement She has been restarted on narcotics at this time and she states that she has follow-up plans with a pain management clinic She will also require follow-up with her marine fitter in [place]. She should follow-up with a BMP in 1 week and subsequent appointment with physician/provider. I spoke personally with Dr. Martinez yesterday who stated he would remove the 96-hour hold. ED recommended Prozac since Cymbalta was contraindicated in renal failure. She was started on 20 mg once a day this should be increased as tolerated to affect. And this morning I spoke with nephrology to make above arrangements Physical Exam Narrative: Alert and oriented x 4 Heart is regular normal S1-S2 without murmurs clicks gallops rubs Lungs are clear to auscultation without wheezes rales rhonchi Abdomen soft nontender nondistended positive bowel sounds Left AKA right BKA no significant edema and stumps Back no palpable back pain Skin multiple scars on back and recent excoriation on thighs Urinary Catheter Management: Riojas: Cath Placed During This Visit: yes Reason for Continuing Indwelling Catheter: Accurate Measurement of Urinary Output in Critically Ill Patients Urinary Catheter Date of Insertion: 04/24/25 Urinary Catheter Time of Insertion: 23:40 Discharge Data Studies Completed and Pending Completed Studies During Hospitalization Category Date Time Status CT abdomen pelvis wo con [id number] Stat Cat Scan 04/24/25 18:[address] lumbar spine wo con* [id number] Stat Cat Scan 04/24/25 18:[address] thoracic spin wo con* [id number] Stat Cat Scan 04/24/25 18:27 Completed MR lumbar spine wo/w con [id number] Routine MRI 04/26/25 09:20 Completed Pending at discharge Category Date Time Status Blood Culture Stat Lab 04/24/25 18:10 Results Vancomycin Random AM LABS Lab 04/29/25 04:00 Ordered Radiology Impressions Abdomen/Pelvis CT 04/24/25 18:27 IMPRESSION: 1. No significant change since previous study with embolization coil anterior to the right renal pelvis. 2. Fat containing umbilical hernia, unchanged. No bowel involvement. No evidence of small bowel obstruction. No evidence of urinary tract obstruction or calculus. 1.4 cm probable simple cyst in the lower pole of the left kidney, unchanged. Lumbar Spine CT 04/24/25 18:27 IMPRESSION: No acute lumbar spine fracture. No shelbi evidence of disc herniation, disc space narrowing, neural foraminal stenosis or nerve root compression. No hemorrhage within the spinal canal. Subtle discitis can not be ruled out by CT study however, no shelbi evidence of discitis. Thoracic Spine CT 04/24/25 18:27 IMPRESSION: Status post anterior cervical spine fusion at least through C5, C6 and C7 vertebra. Posterior spinal fusion hardware is noted with pedicle screws at T1 and T2 level bilaterally.Irregular calcific density projecting within the spinal canal at inferior C7 level, could represent sequela of prior bony fracture. They are located 7 mm posterior to the vertebral body. No evidence of hardware fracture or loosening. Normal thoracic spine alignment without bony fracture. No focal bony destructive lesion seen. Discitis can not be ruled out by CT study. Lumbar Spine MRI 04/26/25 09:20 IMPRESSION: 1. No discitis or osteomyelitis. 2. No significant loss of disc space or vertebral body height. 3. Minimal LEFT foraminal narrowing at L3-4. 4. No high-grade central or foraminal stenosis. Laboratory Results WBC 7.27 10^3/uL (3.29-11.43) 04/28/25 03:04 RBC 2.43 10^6/uL (3.85-5.65) L 04/28/25 03:04 Hgb 7.20 g/dL (11.27-16.99) L 04/28/25 03:04 Hct 23.0 % (36-47) L 04/28/25 03:04 MCV 94.7 fl (85-98) 04/28/25 03:04 MCH 29.6 pg (27-33) 04/28/25 03:04 MCHC 31.3 g/dL (30-55) 04/28/25 03:04 RDW 14.8 % (12.1-15.1) 04/28/25 03:04 Plt Count 237 10^3/cmm (157-399) 04/28/25 03:04 MPV 8.9 fL (7.4-10.4) 04/28/25 03:04 Neut % (Auto) 49.5 % 04/28/25 03:04 Lymph % (Auto) 25.4 % 04/28/25 03:04 [place] % (Auto) 8.8 % 04/28/25 03:04 Eos % (Auto) 15.3 % 04/28/25 03:04 Baso % (Auto) 0.4 % 04/28/25 03:04 Neut # (Auto) 3.60 10^3/uL (1.8-7.7) 04/28/25 03:04 Lymph # (Auto) 1.9 10^3/uL (0.8-4.8) 04/28/25 03:04 [place] # (Auto) 0.6 10^3/uL (0.2-0.9) 04/28/25 03:04 Eos # (Auto) 1.1 10^3/uL (0.0-0.8) H 04/28/25 03:04 Baso # (Auto) 0.0 10^3/uL (0.0-0.1) 04/28/25 03:04 Nucleated RBC % (auto) 0 % 04/28/25 03:04 Nucleated RBCs # 0.0 /100WBC 04/28/25 03:04 Sodium 141 mmol/L (136-145) 04/28/25 03:04 Potassium 3.9 mmol/L (3.5-5.1) 04/28/25 03:04 Chloride 108 mmol/L (98-107) H 04/28/25 03:04 Carbon Dioxide 18 mmol/L (22-29) L 04/28/25 03:04 Anion Gap 18.9 (5-19) 04/28/25 03:04 BUN 51 mg/dL (6-20) H 04/28/25 03:04 Creatinine 4.1 mg/dL (0.5-0.9) H 04/28/25 03:04 GFR Calculation 11.7 mL/min (90-130) L 04/28/25 03:04 Glucose 107 mg/dL (65-115) 04/28/25 03:04 POC Glucose 116 mg/dL (70-110) H 04/28/25 07:31 Estimat Average Glucose 88 04/24/25 15:01 Hemoglobin A1c 4.7 % (4.0-6.0) 04/24/25 15:01 Calculated Osmolality 306 mOsm/kg (285-295) H 04/28/25 03:04 Lactic Acid 1.6 mmol/L (0.5-2.2) 04/24/25 19:26 Calcium 8.0 mg/dL (8.5-10.5) L 04/28/25 03:04 Phosphorus 6.5 mg/dL (2.5-4.5) H 04/27/25 02:17 Magnesium 1.7 mg/dL (1.7-2.3) 04/27/25 02:17 Iron 58 ug/dL (37-145) 04/24/25 15:01 TIBC 309 mcg/dl 04/24/25 15:01 % Saturation 18.7 % (20-50) L 04/24/25 15:01 Unsat Iron Binding 251 ug/dL (112-347) 04/24/25 15:01 Total Bilirubin 0.2 mg/dL (0.15-1.2) 04/28/25 03:04 AST 15 U/L (0-32) 04/28/25 03:04 ALT 11 U/L (0-33) 04/28/25 03:04 Alkaline Phosphatase 173 U/L (35-105) H 04/28/25 03:04 Total Protein 5.8 g/dL (6.6-8.7) L 04/28/25 03:04 Albumin 3.5 g/dL (3.5-5.2) 04/28/25 03:04 Globulin 2.3 g/dL (1.3-4.6) 04/28/25 03:04 Triglycerides 36 mg/dL (0-150) 04/25/25 03:35 Cholesterol 156 mg/dL (0-200) 04/25/25 03:35 LDL Cholesterol, Calc 58 mg/dL (50-129) 04/25/25 03:35 HDL Cholesterol 91 mg/dL (60-100) 04/25/25 03:35 LDL/HDL Ratio 0.64 RATIO (0.00-3.22) 04/25/25 03:35 Cholesterol/HDL Ratio 1.71 mg/dL (0.0-4.40) 04/25/25 03:35 Vitamin B12 267 pg/mL (232-1245) 04/24/25 15:01 Folate 5.2 ng/mL (4.8-37.3) 04/25/25 03:35 Procalcitonin 0.44 ng/mL (0-0.5) 04/25/25 03:35 TSH 1.48 uIU/mL (0.27-4.20) 04/24/25 15:01 HCG, Qual Negative (Negative) 04/24/25 15:45 Urine Color Yellow (Yellow) 04/25/25 16:05 Urine Appearance Turbid (CLEAR) A 04/25/25 16:05 Urine pH 5.0 (5-7) 04/25/25 16:05 Ur Specific [place] 1.015 (1.005-1.030) 04/25/25 16:05 Urine Protein 3+ (Negative) A 04/25/25 16:05 Urine Glucose (UA) Negative (Normal) 04/25/25 16:05 Urine Ketones Negative (Negative) 04/25/25 16:05 Urine Blood Negative (Negative) 04/25/25 16:05 Urine Nitrate Negative (Negative) 04/25/25 16:05 Urine Bilirubin Negative (Negative) 04/25/25 16:05 Urine Urobilinogen 1.0 mg/dL (Negative) 04/25/25 16:05 Ur Leukocyte Esterase 3+ (Negative) A 04/25/25 16:05 Urine RBC 6-10 /hpf (0-2) 04/25/25 16:05 Urine WBC 51-100 /hpf (0-5) H 04/25/25 16:05 Ur Squamous Epith Cells 0-5 /hpf (0-5) 04/25/25 16:05 Amorphous Sediment Not Reportable 04/25/25 16:05 Urine Bacteria 2+ /hpf (NONE) H 04/25/25 16:05 Hyaline Casts 129.51 /lpf 04/25/25 16:05 Ur Random Microalbumin 194 ug/dL (0-20) H 04/25/25 16:05 Ur Random Sodium 10 mmol/L 04/25/25 16:05 Ur Random Potassium 41 mmol/L 04/25/25 16:05 Ur Random Chloride 11 mmol/L 04/25/25 16:05 Urine Creatinine 92 mg/dL (28-217) 04/25/25 16:05 Urine Creatinine 94 mg/dL (28-217) 04/25/25 16:05 Microalb/Creat Ratio 2109 mg/dL (0-20) H 04/25/25 16:05 Random Vancomycin 13.8 ug/mL (20.0-40.0) L 04/28/25 03:04 Salicylates < 0.3 mg/dL (3-10) L 04/24/25 15:01 Urine Opiates Screen Negative ng/mL (Negative) 04/24/25 15:45 Acetaminophen < 5.0 ug/mL (10-30) L 04/24/25 15:01 Ur Barbiturates Screen Negative ng/mL (Negative) 04/24/25 15:45 Ur Phencyclidine Scrn Negative ng/mL (Negative) 04/24/25 15:45 Ur Amphetamines Screen Negative ng/mL (Negative) 04/24/25 15:45 U Benzodiazepines Scrn Negative ng/mL (Negative) 04/24/25 15:45 Urine Cocaine Screen Negative ng/mL (Negative) 04/24/25 15:45 U Marijuana (THC) Screen Positive ng/mL (Negative) H 04/24/25 15:45 Ethyl Alcohol < 10 mg/dL (0-10) 04/24/25 15:01 Vitals Last Vital Signs Temp 99.3 F 04/28/25 12:30 Pulse 104 H 04/28/25 12:30 Resp 21 H 04/28/25 12:30 BP 173/72 04/28/25 12:30 Pulse Ox 98 04/28/25 12:30 O2 Del Method Room Air 04/28/25 09:00 Discharge Plan Discharge Patient Disposition: Home Condition: Stable Prescriptions: New nifedipine 30 mg Tablet Extended Release 24hr 60 mg PO QAM Qty: 30 0RF clonidine HCl 0.1 mg Tablet 0.1 mg PO TID PRN (Reason: Hypertension) Qty: 30 0RF oxycodone-acetaminophen 10-325 mg Tablet 1 tab PO Q6H PRN (Reason: Moderate Pain) Qty: 30 0RF hydralazine 50 mg Tablet 50 mg PO TID Qty: 90 0RF fluoxetine 20 mg Capsule 20 mg PO BEDTIME Qty: 30 0RF Continued quetiapine 100 mg tablet 100 mg PO BEDTIME isosorbide dinitrate 20 mg tablet 20 mg PO BID naloxone [Narcan] 4 mg/actuation spray,non-aerosol See Rx Instructions .ROUTE .COMPLEX Rx Instructions: EMERGENCY USE ONLY, ADMINISTER A SINGLE SPRAY IN ONE NOSTRIL UPON SIGNS OF OPIOID OVERDOSE. MAY REPEAT IN ALTERNATING NOSTRILS EVERY 2 TO 3 MINUTES UNTIL RESPONSIVE OR EMS ARRIVES. quetiapine 50 mg tablet 50 mg PO QAM pregabalin [Lyrica] 75 mg capsule 75 mg PO BID Qty: 60 0RF metoclopramide HCl 10 mg tablet 5 mg PO QID atorvastatin 10 mg tablet 10 mg PO DAILY cyclobenzaprine 5 mg tablet 5 mg PO TID PRN (Reason: Spasms) Discontinued nifedipine 30 mg tablet extended release 30 mg PO DAILY Experience Design Director OK for DC: Nephrology and Hospitalist Discharge Order = DC NOW: Discharge Order (Routine); Ordered 04/28/25 Ordered By: Vickey Peralta Referrals: Monika Simpson MD [Primary Care Provider, Family Practice] Discharge Diet: As Directed Discharge Activity: Resume usual activity Patient Instructions: Chronic Kidney Disease Diet (GEN), Opioid Safety, Patient Portal & Karina Instructions Activity Restrictions/Additional Instructions: Please call your marine fitter Dr. Azalia Covarrubias to get an appointment in 1 week please You need a basic metabolic profile to assess your kidney function prior to that visit. Please note the changes in your medications. The in-hospital marine fitter requested you discharged on clonidine 0.1 mg as needed. Please take this medication if your blood pressure is over 180 systolic We anticipate for your kidney function to improve over time. It is suspected that the severe high blood pressure caused your kidney function to worsen. Please follow-up with pain management clinic for your chronic low back pain Lastly we could not restart Cymbalta as that is contraindicated in your level of renal failure. Thus you were started on Prozac as an antidepressant to help with chronic pain as well. Discharge Attestations Time Spent in Discharge Care*: greater than 30 min Status at Discharge: Cognitive status at discharge: cognitively intact, Behavioral status at discharge: cooperative, Quality Metrics Clinical Quality Measures [ No reported AMI, CVA or VTE this stay] Coding Level of Care Code Acute Code for Chg Fwd Diagnoses Acute kidney injury superimposed on CKD N17.9; N18.9
--- NOTE | 2025-04-28 17:29 | PC.NURSE ---
Patient's prescriptions were delivered to the patient to their bedside. Patient was given all discharge instructions. Patient was stable during discharge. Patient's IVs were discontinued.
== END 2025-04-28 17:29 | disposition home or self-care (01) | DRG 305 ==
LOC: ER 17:56 → ICU 18:24
PROVIDERS: Student in an Organized Health Care Education/Training Program; Admitting Provider Student in an Organized Health Care Education/Training Program; Emergency Provider Emergency Medicine; PCP Family Medicine; Visit Provider Internal Medicine
DX: I16.1 Hypertensive emergency (principal); N17.9 Acute kidney failure, unspecified; N18.4 Chronic kidney disease, stage 4 (severe); R45.851 Suicidal ideations; F11.23 Opioid dependence with withdrawal; R45.1 Restlessness and agitation; I10 Essential (primary) hypertension; E10.22 Type 1 diabetes mellitus with diabetic chronic kidney disease; E10.43 Type 1 diabetes mellitus with diabetic autonomic (poly)neuropathy; K31.84 Gastroparesis; E10.42 Type 1 diabetes mellitus with diabetic polyneuropathy; E10.39 Type 1 diabetes mellitus with other diabetic ophthalmic complication; G89.4 Chronic pain syndrome; E86.0 Dehydration; F32.A Depression, unspecified; E78.5 Hyperlipidemia, unspecified; D63.1 Anemia in chronic kidney disease; G47.00 Insomnia, unspecified; K21.9 Gastro-esophageal reflux disease without esophagitis; F41.1 Generalized anxiety disorder; F43.10 Post-traumatic stress disorder, unspecified; I25.10 Atherosclerotic heart disease of native coronary artery without angina pectoris; F41.0 Panic disorder [episodic paroxysmal anxiety]; F34.1 Dysthymic disorder; R45.88 Nonsuicidal self-harm; T40.2X5A Adverse effect of other opioids, initial encounter; I95.2 Hypotension due to drugs; T46.5X5A Adverse effect of other antihypertensive drugs, initial encounter; Z89.511 Acquired absence of right leg below knee; Z89.612 Acquired absence of left leg above knee; Z95.5 Presence of coronary angioplasty implant and graft; Z87.891 Personal history of nicotine dependence
CPT/HCPCS: 36415; 36416; 51702; 72128; 72131; 72158; 74176; 80048; 80053; 80061; 80202; 80306; 80307; 81001; 81025; 82044; 82436; 82570; 82607; 82746; 82962; 83036; 83540; 83550; 83605; 83735; 84100; 84133; 84145; 84300; 84443; 85025; 86403; 87040; 87086; 93005; 94664; 96365; 96372; 96375; 99285; A4570; J0360; J1171; J1644; J1815; J2404; J2405; J2470; J2543; J2765; J3373; J3490; J7030; J7040; J7050; J8597; J9999; Q3014

== ENCOUNTER 2025-06-10 17:45 | Inpatient (IN) | payer MEDICAID, SELFPAY ==
[2025-06-10] VITALS (7 sets, daily range): BP systolic 113–162; BP diastolic 75–77; PULSE 91–129; RESP 16–24; TEMP 36.7–38.4; O2SAT 96–98
--- OUTSIDE RECORDS SUMMARY | 2025-06-10 17:48 | XMS_ITS | Clinical Summary ---
Author Organization [facility] Address [address] [place] [address] Phone Care Team Providers Care Supervisor Final Name Role Phone Manjarrez Imelda Trinh [facility] Primary Care Provider [phone] Allergies Active Allergy Reactions Criticality Noted Date [...] Recorded Patient Health Questionnaire-2 Score 2 11/08/2023 [facility] - Mental Health Answer Date [...] patient's age to complete this topic [facility] [place] Care Teams Supervisor Final Relationship Specialty Start Date End Date Imelda Manjarrez FNP [id number] [facility] [place] [address] PCP - General Family Medicine 11/08/23
--- OUTSIDE RECORDS SUMMARY | 2025-06-10 17:48 | XMS_ITS | Clinical Summary ---
Author Organization [facility] Address [address] [place] [address] Care Team Providers Care Lang Interpreter Name Role Phone Monika Simpson MD Primary Care Provider [phone] Allergies Active Allergy Reactions Criticality Noted Date [...] Tablet 4 Active rOPINIRole (REQUIP) 1 mg tabletIndication s:Restless leg syndrome Take 1 Tablet (1 mg) by mouth daily at bedtime. 90 Tablet 3 4 Active pantoprazole (PROTONIX) 40 mg Tablet, Delayed Release (E.C.) Take 40 mg by mouth daily. 4 Active naloxone (NARCAN) 4 mg/spray [place], Non-Aerosol EMERGENCY USE ONLY: Administer 1 spray (4 mg) in one nostril one time. May repeat in alternating nostrils every 2-3 min until responsive or EMS arrives. 2 Each 3 5 Active sodium bicarbonate 650 mg tablet Take 1 Tablet (650 mg) by mouth 2 times daily. 30 Tablet 5 Active walker with wheels Face to Face completed within 6 months: yes Length of Need: 99 months 1 Each 5 Active QUEtiapine (SEROquel) 100 mg tabletIndication s:Bipolar disorder, current episode mixed, mild (CMS/HCC) Take 1 Tablet (100 mg) by mouth daily at bedtime. 90 Tablet 3 5 Active QUEtiapine (SEROquel) 50 mg tabletIndication s:Bipolar disorder, current episode mixed, mild (CMS/HCC) Take 1 Tablet (50 mg) by mouth daily. 90 Tablet 3 5 Active cyclobenzaprine (FLEXERIL) 5 mg TabletIndication s:Chronic bilateral low back pain without sciatica Take 1 Tablet (5 mg) by mouth 3 times daily as needed for Spasm. 270 Tablet 3 5 Active pregabalin (LYRICA) 75 mg Capsule Take 1 Capsule (75 mg) by mouth 2 times daily. 60 Capsule 5 5 Active atorvastatin (Lipitor) 10 mg tabletIndication s:Type 2 diabetes mellitus with other specified complication, without long-term current use of insulin Take 1 Tablet (10 mg) by mouth daily. 100 Tablet 3 5 Active FLUoxetine (PROzac) 20 mg capsule Take 20 mg by mouth daily at bedtime. 5 Active hydrALAZINE (APRESOLINE) 50 mg tablet Take 1 Tablet by mouth 3 times daily. 5 Active NIFEdipine (ADALAT CC) 30 mg Extended Release tabletIndication s:Benign hypertension with stage 3b chronic kidney disease (CMS/HCC) Take 2 Tablets (60 mg) by mouth daily. 180 Tablet 3 5 Active metoclopramide HCl (REGLAN) 10 mg tablet Take 1 Tablet (10 mg) by mouth 4 times daily before meals and at bedtime. 360 Tablet 3 5 Active oxyCODONE-acetam inophen (PERCOCET) 7.5-325 mg TabletIndication s:Chronic bilateral low back pain without sciatica Take 1 Tablet by mouth every 6 hours as needed for Pain, Moderate. Max Daily Amount: 4 Tablets 28 Tablet 5 Active cloNIDine HCL (CATAPRES) 0.1 mg tablet Take 1 Tablet (0.1 mg) by mouth every 8 hours as needed for Blood Pressure. 90 Tablet 2 Active isosorbide dinitrate (ISORDIL) 20 mg tablet Take 20 mg by mouth 2 times daily. Active Active Problems Problem Noted Date Diagnosed [...] osteomyelitis 12/03/2024 Elevated erythrocyte sedimentation rate 12/04/19 Abnormal MRI, cervical spine 12/02/2024 Effusion of [...] osteoarthritis 12/10/2023 Precordial chest pain 11/16/2019 Old [place] (myocardial infarction) 11/11/2019 Takotsubo cardiomyopathy 11/11/2019 Hyponatremia 07/20/2019 Hypercalcemia 07/09/2019 Restless leg syndrome 05/02/2019 Normocytic anemia 05/02/2019 Hypomagnesemia 03/24/2019 Sacral decubitus ulcer 03/04/2019 Weight loss 03/04/2019 Dyslipidemia 03/03/2019 ASHD (arteriosclerotic heart disease) 01/19/2019 Esophagitis, Arroyo grade C 10/03/2018 Hx of migraine headaches 09/27/2018 Essential hypertension 09/27/2018 Incidental pulmonary nodule, > 3mm and < 8mm rt lung 09/20/2018 Thrombocytosis 09/19/2018 Elevated alkaline phosphatase level 09/19/2018 Noncompliance with medication regimen 07/04/2018 Diabetic polyneuropathy asso ciated with type 2 diabetes mellitus 12/30/2017 H/O supraventricular tachycardia 12/18/2017 Overview (12/15/2020): [place] to be caffeine induced Hypokalemia Diabetic gastroparesis Intractable chronic migraine without aura and without status migrainosus Intractable cyclical vomiting with nausea Chronic abdominal pain Microcytic anemia Uncomplicated opioid dependence Current mild episode of tony r depressive disorder without prior episode Resolved Problems Problem Noted Date Diagnosed Date Resolved Date Acute metabolic encephalopathy 12/01/2024 03/29/2025 Acute low back pain 12/01/2024 03/29/20 Infection of above knee ampu tation stump of left lower extremity 11/30/2024 03/29/2025 UTI (urinary tract infection) 02/05/2024 03/12/2024 Diabetes mellitus 02/01/2024 03/12/2024 Acute renal failure 01/31/2024 03/12/20 24 Acute cystitis without hematuria 11/26/2019 03/12/2024 Protein-calorie malnutrition, moderate 11/16/2019 03/12/2024 Acute coronary syndrome with high troponin 11/11/2019 03/12/2024 Overview (12/16/2020): Added automatically from request for surgery [id number] History of below-knee amputa tion of left [...] perceptible pit (no findings) (11/11/19 1430) Hand 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 Order 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: Unable to assess(s/p cath ) (11/11/19 1430) [...] Encounters Date Type Department Care Team Description 06/01/2025 External Device Data ST[facility] ABSTRACTION Provider, Abstract 05/07/2025 Results Follow-Up [address] [address] Monika Simpson MD BASIC METABOLIC PANEL 05/06/2025 11:20 AM CDT Office Visit [address] [address] Monika Simpson MD Suicidal ideation (Primary Dx); Hordeolum externum of left upper eyelid; Mass of soft tissue of face; Acute renal failure, unspecified acute renal failure type; Benign hypertension with stage 3b chronic kidney disease (CMS/HCC); Chronic bilateral low back pain without sciatica 05/03/2025 Orders Only [facility] [id number] [place] [phone] Provider, Abstract 05/03/[address] [address] Monika Simpson MD 04/29/[address] [place] [address] Monika Simpson MD 04/29/2025 Orders Only [facility] [address] [place] [address] Provider, Abstract 04/28/[address] [phone] Monika Simpson MD Hospital Follow Up; Patient Communication 04/14/2025 External Device Data STL ABSTRACTION Provider, Abstract 04/13/2025 External Device Data ST[facility] ABSTRACTION Provider, Abstract 04/07/2025 External Device Data ST[facility] ABSTRACTION Provider, Abstract 03/29/2025 11:20 AM CDT Office Visit [address] [phone] Monika Simpson MD Diabetic gastroparesis (CMS/HCC) (Primary Dx); Acute kidney injury superimposed on chronic kidney disease; Type 2 diabetes mellitus with other specified complication, without long-term current use of insulin (CMS/HCC); Benign hypertension with stage 3b chronic kidney disease (CMS/HCC); Chronic bilateral low back pain without sciatica 03/22/[address] [address] Monika Simpson MD Bipolar disorder, current episode mixed, mild (CMS/HCC) 03/11/2025 Orders Only [facility] [address] [place] [address] Provider, Abstract 03/11/[address] [address] Monika Simpson MD 03/10/[address] [phone] Monika Simpson MD Needs Appointment from Last 3 Months Immunizations Immunization Administration [...] on file Legal Sex Female 2:06 AM HAND SHOE CUTTER Gender Identity Not on file Sexual Orientation Not on file Last Filed Vital Signs Vital Sign Reading Time Taken Comments Blood Pressure 138/80 05/06/2025 11:26 AM CDT Pulse 80 05/06/2025 11:26 AM CDT Temperature 36.9 C (98.4 F) 05/06/2025 11:26 AM CDT Respiratory Rate 18 05/06/2025 11:26 AM CDT Oxygen Saturation 99% 05/06/2025 11:26 AM CDT Inhaled Oxygen Concentration - - Weight 64 kg (141 lb) 05/06/2025 11:26 AM CDT Height 147.3 cm (4' 10 ) 05/06/2025 11:26 AM CDT Body Mass Index 29.47 05/06/2025 11:26 AM CDT Plan of Treatment Upcoming Encounters Date Type Department Care Team (Late st Contact Info) Description 07/02/2025 11:00 AM HAND SHOE CUTTER Office Visit [facility] [address] [address] Monika Simpson MD [address] [address] Health Maintenance Due Date Last Done Comments DIABETES ANNUAL RETINAL EXAM 1996 HEPATITIS B VACCINES (1 of 3 - 19+ 3-dose series) 1997 Preventative Visit-Managed Medicaid 1997 HPV/Cotest (21-29) 1999 CERVICAL CANCER SCREENING 2008 HPV/Cotest (30-65) 2008 PAP SMEAR 2008 FIT-DNA Q 3 years 2023 FIT/FOBT Q 1 year 2023 Flex Sig/CT Colonography Q 5 years 2023 INFLUENZA VACCINE (#1) 2025 4, 07/03/2021, 07/02/2019 COVID-19 Vaccine ( season) 2025 09/19/2021 BREAST CANCER SCREENING 06/27/2025 Post poned from 2018 (Patient Refused) DIABETES HBA1C Q 6 MONTHS 10/22/20252024, 02/26/2025, 09/13/2024, Additional history exists DIABETES MICROALBUMIN ANNUAL SCREEN 03/29/2026 03/29/2025, 03/12/2024 DIABETES: A1C (Auto Order) 04/24/202604/24, 02/26/2025, 09/13/2024, Additional history exists LDL CHOLESTEROL ANNUAL 04/25/2026 5, 11/11/2019, 12/19/2017 COLORECTAL SCREENING 06/26/2029 06/26/2019, 06/26/2019, 06/26/2019 Colorectal Cancer Screening 06/26/2029 DTAP/TDAP/TD VACCINES (2 - Td or Tdap) 10/22/2031 10/21/2021 Medical Devices Implanted Type Area Getter Filler Device Identifier Shelf Expiration Date Model / Serial / Lot Cage T1 Centerpiece Stratosphere 13mm Sz D [id number] - [id number] Implanted:Qty: 1 on 12/05/2024 by Mike Diaz MD at [facility] Cage N/A: Neck [employer] SOFAMOR DANEK 02/21/2026 [id number] / / [id number] Powerline-03/06 Implanted:Qty: 1 on 03/06/2019 by Ovi Cohen MD Catheter Right: Chest [id number] 03/18/2021 [id number] / / [id number] 30cm Gj Feeding Tube-10/15/2018 Implanted:Qty: 1 on 10/15/2018 by Ovi Cohen MD Feeding Device Jejunum 03/19/2020 0250-18- 30 / / [id number] Hemostatic Surgicel 3x4in 1942 - [id number] Implanted:06/20 by Pelon Rose DPM (Quantity not on file) Hemostatic Left: Foot [employer] 02/15/20231942 / / [id number] Hemostatic Surgifoam 1gm 1977 - [id number] Implanted:Qty: 1 on 12/05/2024 by Mike Diaz MD at [facility] Hemostatic N/A: Neck [employer] 09/03/20261977 / / [id number] Hemostatic Surgifoam 1gm 1977 - [id number] Implanted:Qty: 1 on 12/05/2024 by Mike Diaz MD at [facility] Hemostatic N/A: Neck [employer] 09/03/20261977 / / [id number] Hemostatic Surgifoam 1gm 1977 - [id number] Implanted:Qty: 1 on 12/05/2024 by Mike Diaz MD at [facility] Hemostatic N/A: Neck [employer] 09/03/20261977 / / [id number] Plate [place] Vision Elite 52.5mm [id number] - [id number] Implanted:Qty: 1 on 12/05/2024 by Mike Diaz MD at [facility] Plate N/A: Neck [employer] [place] [id number] / / Emiliano Std 3.1g070pw 8606145 - [id number] Implanted:Qty: 1 on 12/05/2024 by Mike Diaz MD at [facility] Emiliano N/A: Neck [employer]OR [employer]K [id number] / / Connector Infinity Oc Lat Opn 10mm [id number] - [id number] Implanted:Qty: 1 on 12/05/2024 by Mike Diaz MD at [facility] Emiliano N/A: Neck [employer] SOF[employer]OR [employer]K 03/24/2026 [id number] / / [id number] Connector Infinity Oc Lat Opn 10mm 8292528 - [id number] Implanted:Qty: 1 on 12/05/2024 by Mike Diaz MD at [facility] Emiliano N/A: Neck [employer] SOF[employer]OR [employer]ANEK 03/24/2026 [id number] / / [id number] Screw Stlnts Sd Va 4.0x14mm 0425510 - [id number] Implanted:Qty: 1 on 12/05/2024 by Mike Diaz MD at [facility] Screw N/A: Neck [employer] [id number] / / Screw Stlnts Sd Va 4.0x14mm [id number] - [id number] Implanted:Qty: 1 on 12/05/2024 by Mike Diaz MD at [facility] Screw N/A: Neck [employer] [id number] / / Screw Infinity 3.5x12mm Mas 9933655 - [id number] Implanted:Qty: 1 on 12/05/2024 by Mike Diaz MD at [facility] Screw N/A: Neck [employer] [id number] / / Screw Infinity 3.5x12mm Mas 2504932 - [id number] Implanted:Qty: 1 on 12/05/2024 by Mike Diaz MD at [facility] Screw N/A: Neck [employer] [id number] / / Screw Infinity 3.5x12mm Mas 1398696 - [id number] Implanted:Qty: 1 on 12/05/2024 by Mike Diaz MD at [facility] Screw N/A: Neck [employer] [id number] / / Screw Infinity 3.5x12mm Mas 2698139 - [id number] Implanted:Qty: 1 on 12/05/2024 by Mike Diaz MD at [facility] Screw N/A: Neck [employer] [id number] / / Screw Infinity 3.5x12mm Mas 8240526 - [id number] Implanted:Qty: 1 on 12/05/2024 by Mike Diaz MD at [facility] Screw N/A: Neck [employer] [id number] / / Screw Infinity 3.5x12mm Mas 1372565 - [id number] Implanted:Qty: 1 on 12/05/2024 by Mike Diaz MD at [facility] Screw N/A: Neck [employer] [id number] / / Set Screw Infinity Oc M6 [id number] - [id number] Implanted:Qty: 1 on 12/05/2024 by Mike Diaz MD at [facility] Screw N/A: Neck [employer] [id number] / / Set Screw Infinity Oc M6 5318757 - [id number] Implanted:Qty: 1 on 12/05/2024 by Mike Diaz MD at [facility] Screw N/A: Neck [employer] [id number] / / Set Screw Infinity Oc M6 5007970 - [id number] Implanted:Qty: 1 on 12/05/2024 by Mike Diaz MD at [facility] Screw N/A: Neck [employer] [id number] / / Set Screw Infinity Oc M6 7433697 - [id number] Implanted:Qty: 1 on 12/05/2024 by Mike Diaz MD at [facility] Screw N/A: Neck [employer] [id number] / / Set Screw Infinity Oc M6 8245614 - [id number] Implanted:Qty: 1 on 12/05/2024 by Mike Diaz MD at [facility] Screw N/A: Neck [employer] [id number] / / Set Screw Infinity Oc M6 2984091 - [id number] Implanted:Qty: 1 on 12/05/2024 by Mike Diaz MD at [facility] Screw N/A: Neck [employer] [id number] / / Set Screw Infinity Oc M6 2219549 - [id number] Implanted:Qty: 1 on 12/05/2024 by Mike Diaz MD at [facility] Screw N/A: Neck [employer] [id number] / / Set Screw Infinity Oc M6 2378532 - [id number] Implanted:Qty: 1 on 12/05/2024 by Mike Diaz MD at [facility] Screw N/A: Neck [employer]K 1937395 / / Set Screw Infinity Oc M6 [id number] - [id number] Implanted:Qty: 1 on 12/05/2024 by Mike Diaz MD at [facility] Screw N/A: Neck [employer] [id number] / / Set Screw Infinity Oc M6 7552467 - [id number] Implanted:Qty: 1 on 12/05/2024 by Mike Diaz MD at [facility] Screw N/A: Neck [employer] [id number] / / Set Screw Infinity Oc M6 2338963 - [id number] Implanted:Qty: 1 on 12/05/2024 by Mike Diaz MD at [facility] Screw N/A: Neck [employer] [id number] / / Set Screw Infinity Oc M6 [id number] - [id number] Implanted:Qty: 1 on 12/05/2024 by Mike Diaz MD at [facility] Screw N/A: Neck [employer] [id number] / / Screw Infinity 4.5x24mm Mas 8545040 - [id number] Implanted:Qty: 1 on 12/05/2024 by Mike Diaz MD at [facility] Screw N/A: Neck [employer] 03/24/2026 [id number] / / [id number] Screw Infinity 4.5x24mm Mas 8347632 - [id number] Implanted:Qty: 1 on 12/05/2024 by Mike Diaz MD at [facility] Screw N/A: Neck [employer] 03/24/2026 [id number] / / [id number] Screw Infinity 4.5x24mm Mas 5349090 - [id number] Implanted:Qty: 1 on 12/05/2024 by Mike Diaz MD at [facility] Screw N/A: Neck [employer]ANEK 03/24/2026 [id number] / / [id number] Screw Infinity 4.5x24mm Mas 5441169 - [id number] Implanted:Qty: 1 on 12/05/2024 by Mike Diaz MD at [facility] Screw N/A: Neck [employer] 03/24/2026 [id number] / / [id number] Screw Stlnts Sd Va 4.0x14mm 5806787 - [id number] Implanted:Qty: 1 on 12/05/2024 by Mike Diaz MD at [facility] Screw N/A: Neck [employer] [id number] / / Screw Stlnts Sd Va 4.0x14mm 3253800 - [id number] Implanted:Qty: 1 on 12/05/2024 by Mike Diaz MD at [facility] Screw N/A: Neck [employer] [id number] / / Paste Bone Dbm Plus 1ml [id number] - [id number] Implanted:Qty: 1 on 12/05/2024 by Mike Diaz MD at [facility] Tissue N/A: Neck [employer] - SPINALGRAFT 04/15/2026 [id number] / [id number] / Paste Bone Dbm Plus 5ml [id number] - [id number] Implanted:Qty: 1 on 12/05/2024 by Mike Diaz MD at [facility] Tissue N/A: Neck [employer]INAL[employer] 06/19/2026 [id number] / [id number] / Paste Bone Dbm Plus 5ml [id number] - [id number] Implanted:Qty: 1 on 12/05/2024 by Mike Diaz MD at [facility] Tissue N/A: Neck [employer] - SPINALGRAFT 04/02/2026 [id number] / [id number] / Explanted Type Area Getter Filler Device Identifier Shelf Expiration Date Model / Serial / Lot 16fr 30cm Richy Gastro-Jejuna l Feeding Tube- 9 Implanted:Qty : 1 on 10/08/2018 by Luis Alberto Fields MD Explanted:Qty : 1 on 10/15/2018 by Ovi Cohen MD Feeding Device N/A: Abdomen 01/18/2020 / / [id number] Set Screw Infinity Oc M6 [id number] - [id number] Explanted:Qty : 1 on 12/05/2024 by Mike Diaz MD at [facility] Screw N/A: Neck [employer] [id number] / / Procedures Procedure Name Priority Date/Time Associated Diagnosis Comments BASIC METABOLIC PANEL Routine 05/06/2025 11:51 AM CDT Benign hypertension with stage 3b chronic kidney disease (CMS/HCC) COMPREHENSIVE METABOLIC PANEL Routine 04/28/2025 10:49 AM CDT LIPID PANEL Routine 04/25/2025 COMPREHENSIVE METABOLIC PANEL Routine 04/24/2025 11:15 AM CDT HEMOGLOBIN A1C Routine 04/24/2025 MICROALBUMIN/CREATINI NE RATIO, RANDOM UR Routine 03/29/2025 11:28 AM CDT Type 2 diabetes mellitus with other specified complication, without long-term current use of insulin ([facility]) COLONOSCOPY REPORT 06/26/2019 4: 22 PM HAND SHOE CUTTER from Last 3 Months or Most Recently Relevant to Health Maintenance Results * (ABNORMAL) BASIC METABOLIC PANEL (05/06/2025 11:51 AM CDT) GLUCOSE 127(H) 65 - 99 mg/dL [facility] Comment: Fasting reference interval For someone without known diabetes, a glucose value >125 mg/dL indicates that they may have diabetes and this should be confirmed with a follow-up test. BUN 54(H) 7 - 25 mg/dL [facility] CREATININE 4.29(H) 0.50 - 0.99 mg/dL [facility] GFR 12(L) > OR = 60 mL/min/1.7 3m2 [facility] BUN/CREAT RATIO 13 6 - 22 (calc) [facility] SODIUM 140 135 - 146 mmol/L [facility] POTASSIUM 4.0 3.5 - 5.3 mmol/L [facility] CHLORIDE 106 98 - 110 mmol/L [facility] CO2 23 20 - 32 mmol/L [facility] CALCIUM 8.8 8.6 - 10.2 mg/dL [facility] Comment: Test Performed at: [facility] [address] [facility] [place] [address] Diego Lacy MD Blood 05/06/2025 11:5 1 AM CDT 05/06/2025 11:51 AM CDT us Monika Simpson MD CHEMISTRY ORDERABLES Final Result [facility] [phone] [facility] [address] [place] [address] * COMPREHENSIVE METABOLIC PANEL (04/28/2025 10:49 AM CDT) Only the most recent of2 resultswithin the time period is included. Blood us Abstract Provider CHEMISTRY ORDERABLES Final Res ult * LIPID PANEL (04/25/2025) Pathologist [facility] [place] ABSTRACTED CHOLESTEROL 156 ABSTRACTED TRIGLYCERIDE 36 ABSTRACTED HDL 91 ABSTRACTED LDL CALCULATED 58 Blood 04/25/2025 us Abstract Provider CHEMISTRY ORDERABLES Final Res ult * HEMOGLOBIN A1C (04/24/2025) Pathologist [facility] [place] ABSTRACTED HGB A1C 4.7 % Blood 04/24/2025 us Abstract Provider CHEMISTRY ORDERABLES Final Res ult * (ABNORMAL) MICROALBUMIN/CREATININE RATIO, RANDOM UR (03/29/2025 11:28 AM CDT) Pathologist [facility] [place] CREATININE, URINE 61 20 - 275 mg/dL [...] within a diagnostic category. Test Performed at: [facility] [address] [facility] [place] [address] Diego Lacy MD Urine URINE SPECIMEN OBTAINED BY CLEAN CATCH PROCEDURE / Unknown 03/29/2025 11:28 AM CDT 03/30/2025 2:39 AM CDT Monika Simpson MD URINE ORDERABLES Final Res ult [facility] [phone] [facility] [[email or web address] [address] [place] [address] * COLONOSCOPY REPORT (06/26/2019 4:22 PM HAND SHOE CUTTER) Adryan Ibarra MD GI PROCEDURE ORDERABL ES Final Result from Last 3 Months or Most Recently Relevant to Health Maintenance Insurance [place] * Guarantor: MELISSA TATE Account Type Relation to Patient Date of Phone Billing Address Personal/Family [address] [place] [address] RX [employer]ING Medicaid [place] Advance Directives For more information, please contact: [phone] * Full Code (Latest Code Status on [...] 11:29 PM 02/11/2024 7:10 PM Care Teams Lang Interpreter Relationship Specialty Start Date End Date Monika Simpson MD [address] [place] [address] PCP - General Family Practice 03/12/24
--- OUTSIDE RECORDS SUMMARY | 2025-06-10 17:48 | XMS_ITS | Clinical Summary ---
Author Organization [facility] Facility Address [address] [place] [address] Care Team Providers Care Mirror Maker Name Role Phone Kentrell Herrign MD Primary Care Provider [phone] Social History Tobacco Use Types Packs/Day Years [...] 50+ Years Discontinued 9 Insurance Medicaid [place] ([id number]) Care Teams Mirror Maker Relationship Specialty Start Date End Date Kentrell Herring MD [address] [place] [id number] PCP - General Family Medicine 09/29/18
--- OUTSIDE RECORDS SUMMARY | 2025-06-10 17:48 | XMS_ITS | Encounter Summary ---
Author Organization [facility] Address [address] [place] [address] Care Team Providers Care Soil Conservation Aide Name Role Phone Kentrell Herring MD Primary Care Provider + Encounter Details Date Type Department Care Team (Late st Contact Info) Description 01/29/2007 Emergency [facility] Emergency Department [address] 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 Gender Identity Not on file Sexual Orientation [...] MD URINE ORDERABLES Edited Performing Organization Address [facility] de Phone Number INTERFACE SYSTEM Refer to clinic/hospital department * (ABNORMAL) ACETONE QUALITATIVE, URINE (01/29/2007 7:36 PM CDT) KETONES UA Large(A) Negative INTERFACE SYSTEM 01/29/2007 7:36 PM CDT Baljit Farrell MD URINE ORDERABLES Edited Performing Organization Address [facility]/ZIP Co de Phone Number INTERFACE SYSTEM Refer to clinic/hospital department * (ABNORMAL) GLUCOSE URINALYSIS, QUALITATIVE (01/29/2007 7:36 PM CDT) GLUCOSE, URINE 500 mg/dl(A) Negative INTERFACE SYSTEM 01/29/2007 7:36 PM CDT Baljit Farrell MD URINE ORDERABLES Edited Performing Organization Address [facility] Co de Phone Number INTERFACE SYSTEM Refer [...] HEMATOLOGY ORDERABLES Jc marcela Performing Organization Address [facility] de Phone Number INTERFACE SYSTEM Refer to clinic/hospital department * LIPASE (01/29/2007 6:53 PM CDT) LIPASE 24 6 - 51 U/L INTERFACE SYSTEM Comment: As of 05 the [facility] has changed testing methods. The new reference range is 6-51 The old referance range was 23-300 01/29/2007 6:53 PM CDT Baljit Farrell MD CHEMISTRY ORDERABLES Edit ed Performing Organization Address [facility] Phone Number INTERFACE SYSTEM Refer to clinic/hospital department * (ABNORMAL) BETA HYDROXYBUTYRATE (01/29/2007 6:53 PM CDT) BETA HYDROXYBUTYRATE 1.22(H) 0.00 - 0.25 mmol/l INTERFACE SYSTEM 01/29/2007 6:53 PM CDT Baljit Farrell MD CHEMISTRY ORDERABLES Edit ed Performing Organization Address [facility] de Phone Number INTERFACE SYSTEM Refer to clinic/hospital department * BETA HCG QUANTITATIVE, BLOOD (01/29/2007 6:53 PM CDT) CHORIONIC GONADOTROPIN, TOTAL <2.0 0.0 - 10.0 mlU/ML INTERFACE SYSTEM Comment: Total HCG levels between 10 mIU/mL and 25 mIU/mL may be indicative of early but need to be correlated with other clinical findings. HCG ranges during normal , as reported by the tail board worker, are summarized as follows: Gestational Age [...] CHEMISTRY ORDERABLES Edit ed Performing Organization Address [facility] Co de Phone Number INTERFACE SYSTEM Refer to clinic/hospital department * (ABNORMAL) POC GLUCOSE (01/29/2007 6:49 PM CDT) GLUCOSE POC 273(H) 60 - 100 mg/dL INTERFACE SYSTEM 01/29/2007 6:49 PM CDT us Baljit Farrell MD POINT OF CARE TESTING Jc marcela Performing Organization Address [facility] de Phone Number INTERFACE SYSTEM Refer to clinic/hospital department documented in this encounter Visit Diagnoses Diagnosis Acute pyelonephritis without lesion of renal medullary necrosis- Primary documented in this encounter Care Teams Soil Conservation Aide Relationship Specialty Start Date End Date Kentrell Herring MD [address] [place] [address] PCP - General Family Practice 09/19/18 documented as of this encounter
--- OUTSIDE RECORDS SUMMARY | 2025-06-10 17:48 | XMS_ITS | Encounter Summary ---
Author Organization [facility] Address [address] [place] [address] Care Team Providers Care Flight Deck Officer Name Role Phone Monika Simpson MD Primary Care Provider +1- [phone] Reason for Visit * Auth/Cert (Routine) Specialty Diagnoses / Procedures Referred By Contac t Referred To Contact Perioperative Diagnoses Abscess of bursa of right knee Hx of below knee amputation, right (CMS/HCC) Abscess of bursa of right knee [M71.061] Hx of below knee amputation, right (CMS/HCC) [Z89.511] Procedures CO I&D DEEP ABSC BURSA/HEMATOMA THIGH/KNEE REGION KNEE IRRIGATION AND DEBRIDEMENT OF PRE-PATELLAR BURSA WITH SUTURE REMOVAL RIGHT KNEE 30 MIN SUPINE En [place] MD [address] [place] [address] Phone: tel: fax: [facility] Operating [address] [place] [address] Phone: tel: fax: Referral ID Status Reason Start Date Expiration Date Visits Re quested Visits Authorized [id number] 1 1 Encounter Details Date Type Department Care Team (Latest Contact Info) Description 11/30/2024 Hospital Encounter [facility] Operating [address] [place] [address] En Lancaster MD [address] [place] [phone] Abscess of bursa of right knee [...] on file Legal Sex Female 2:06 AM SENIOR CLINICAL CONSULTANT Gender Identity Not on file Sexual Orientation Not on file documented as of this encounter OR Notes * Amie-OP - Taylor Joy RN - 11/30/2024 8:47 AM CDT Patient scheduled to arrive at 0630 per chart note and patient notified. When patient did not arrive we spoke with her since we were unable to reach her. He stated she was admitted to [facility]. We made a call to them and they were not aware of her surgery today and stated that a rn case manager would arrive around 0800 and would be getting back to us about surgery. I had not heard any information about this by 0840 I called and spoke with Meredith in case management at [facility] who returned a call to me after speaking with her attending physician who says the patient will not be coming today for surgery and if the surgery is necessary they will call us to reschedule. Azalia Foley and OR notified. documented in this encounter Plan of Treatment Upcoming Encounters Date Type Department Care Team (Late st Contact Info) Description 07/02/2025 11:00 AM SENIOR CLINICAL CONSULTANT Office Visit [address] [phone] Monika Simpson MD [address] [phone] documented as of this encounter Visit Diagnoses Not on filedocumented in this encounter Additional Health Concerns Infection Onset Date Last Indicated Resolved Time R/O Meningitis 11/30/2024 11/30/2024 11/30/2024 10 :01 PM CDT Assessment Noted Time PHQ-9 Depression Total Score: 2 03/12/20 8:33 AM CDT documented as of this encounter Care Teams Flight Deck Officer Relationship Specialty Start Date End Date Monkia Simpson MD [address] [phone] PCP - General Family Practice 03/12/24 documented as of this encounter
--- OUTSIDE RECORDS SUMMARY | 2025-06-10 17:48 | XMS_ITS | Encounter Summary ---
Author Organization [facility] Address [address] [place] [address] Care Team Providers Care Mc Kay Stitcher Name Role Phone Monika Simpson MD Primary Care Provider +1- [phone] Reason for Visit * Reason Comments Hospital Follow Up Patient Communication Encounter Details Date Type Department Care Team (Late st Contact Info) Description 04/28/2025 Telephone [facility] [place] [address] [address] Monika Simpson MD [address] [phone] Hospital Follow Up; Patient Communication Social History Tobacco Use Types Packs/Day Years [...] on file Legal Sex Female 2:06 AM DIRECTOR ENTERPRISE SALES Gender Identity Not on file Sexual Orientation Not on file documented as of this encounter Miscellaneous Notes * Telephone Encounter - Chuyita Martin - 04/30/2025 9:38 AM CDT Called pt to confirm HFU and see about coming in sooner. No answer or vm. Called [facility] and lft vm with medical records to have faxed for upcoming HFU. * Telephone Encounter - Reji Gusman - 04/29/2025 12:13 PM CDT Copied from [facility] #[id number]. Topic: CPA Information Request >> Apr 29, 2025 12:13 PM Reji Beasley wrote: Caller is returning phone call from clinic. Caller Name: Cherrie Ham Patient/Caregiver Callback Number: Telephone Information: Mobile Not on file. Clinic Left Note In Chart Is there a note from the clinic requesting the caller be transferred when they call back? No Are the credentials of the caregiver who called the patient residential caregiver? Yes Call Notes: Communicated information that is documented in the note. Caller wants a call back from clinic. * Telephone Encounter - Chuyita Martin - 04/29/2025 11:51 AM CDT 04/29/2025 11:51 AM Reached out to pt and lft vm. Chuyita * Telephone Encounter - Azalia Guzman LPN - 04/28/2025 2:14 PM CDT Attempted to contact patient, no answer I did leave a vm * Telephone Encounter - Mariann Robledo - 04/28/2025 1:34 PM CDT Copied from [facility] #[id number]. Topic: Established Patient Care >> Apr 28, 2025 1:30 PM Mariann De Anda wrote: Is the patient established with a [facility] provider? Yes, select appropriate option in Discharge Facility SmartList Caller Name: [facility] Callback Number: Telephone Information: - call patient Call Notes: [facility] d/c 04/28 suicidal ideation Patient is High Risk Where was the patient discharged from? Hospital Is there availability to schedule the patient within 5 calendar days of discharge? Yes, but patientwants to schedule an in person appointment outside 5 day guideline documented in this encounter Plan of Treatment Upcoming Encounters Date Type Department Care Team (Late st Contact Info) Description 07/02/2025 11:00 AM DIRECTOR ENTERPRISE SALES Office Visit [address] [phone] Monika Simpson MD [address] [place] [phone] documented as of this encounter Visit Diagnoses Not on filedocumented in this encounter Additional Health Concerns Assessment Noted Time PHQ-9 Depression Total Score: 2 03/12/20 24 8:33 AM CDT documented as of this encounter Care Teams Mc Kay Stitcher Relationship Specialty Start Date End Date Monika Simpson MD [address] [place] [phone] PCP - General Family Practice 03/12/24 documented as of this encounter
--- OUTSIDE RECORDS SUMMARY | 2025-06-10 17:48 | XMS_ITS | Encounter Summary ---
Author Organization [facility] Address [address] [place] [address] Care Team Providers Care Cyber Legal Advisor Name Role Phone Kentrell Herring MD Primary Care Provider + Encounter Details Date Type Department Care Team (Late st Contact Info) Description 12/01/2007 Outpatient Historical [facility] Pepe Jr., Charles Clancy MD [address] [place] [phone] Social History Tobacco Use Types Packs/Day Years Used Date Smoking Tobacco: Never Assessed Comments Unknown Sex and Gender Information Value Date Recorded Sex Assigned at Not on file Legal Sex Female 3:09 AM PREFORMS LAMINATOR Gender Identity Not on file Sexual Orientation Not on file documented as of this encounter Plan of Treatment Not on file documented as of this encounter Visit Diagnoses Not on filedocumented in this encounter Care Teams Cyber Legal Advisor Relationship Specialty Start Date End Date Kentrell Herring MD [address] [place] [address] PCP - General Family Practice 09/19/18 documented as of this encounter
--- OUTSIDE RECORDS SUMMARY | 2025-06-10 17:48 | XMS_ITS | Encounter Summary ---
Author Organization [facility] Address [address] [place] [address] Care Team Providers Care Prospecting Driller Name Role Phone Kentrell Herring MD Primary Care Provider + Encounter Details Date Type Department Care Team (Latest Contact Info) Description 02/23/2003 Outpatient Historical [facility], [facility] OBSERVATION-ACCIDENT NEC (Primary Dx) Social History Tobacco Use Types Packs/Day Years Used Date Smoking Tobacco: Never Assessed Comments Unknown Sex and Gender Information Value Date Recorded Sex Assigned at Not on file Legal Sex Female 3:09 AM DIE 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
--- OUTSIDE RECORDS SUMMARY | 2025-06-10 17:48 | XMS_ITS | Encounter Summary ---
Author Organization [facility] Address [address] [place] [address] Care Team Providers Care Bioanalyst Name Role Phone Kentrell Herring MD Primary Care Provider + Encounter Details Date Type Department Care Team (Latest Contact Info) Description 04/10/2003 Outpatient Historical [facility] [employer] [facility], 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
--- OUTSIDE RECORDS SUMMARY | 2025-06-10 17:48 | XMS_ITS | Clinical Summary ---
Author Organization [facility] Address [address] [place] [address] Care Team Providers Care Manager Of Digital Name Role Phone Kentrell Herring MD Primary [...] . 100 Each 3 07/31/2019 5:32 PM LIGHT BULB TESTER 9 Active insulin lispro (HumaLOG) 100 unit/mL [...] units 10 mL 3 07/31/2019 5:32 PM LIGHT BULB TESTER 9 Active Insulin Reva, Disposable, 31 gauge x 5/16 Needle Use as directed to administer insulin. 100 Each 07/31/2019 5:32 PM LIGHT BULB TESTER 9 Active aspirin (ECOTRIN EC) 81 mg Tablet, Delayed Release (E.C.) Take 1 Tablet (81 mg) by mouth daily. 30 Tablet 3 9 Active clopidogreL (PLAVIX) 75 mg Tablet Take 1 Tablet (75 mg) by mouth daily. 30 Tablet 3 07/31/2019 5:32 PM LIGHT BULB TESTER 9 Active FLUoxetine (PROzac) 20 mg capsule Take 1 Capsule (20 mg) by mouth daily. 30 Capsule 3 07/31/2019 5:[address] [facility] 9 Active hydrOXYzine HCL (ATARAX) 50 mg tablet Take 1 Tablet (50 mg) by mouth every 6 hours as needed for Anxiety, Insomnia, Nausea/Emesis or pain. 90 Tablet 1 07/31/2019 5:32 PM LIGHT BULB TESTER 9 Active ferrous sulfate 325 mg (65 mg iron) tablet Take 1 Tablet (325 mg) by mouth 2 times daily. 30 Tablet 3 07/31/2019 5:[address] [facility] 9 Active ascorbic acid, vitamin [...] administer insulin. 100 Each 07/31/2019 5:[address] [facility] 9 Active Blood-Glucose Meter Use as directed to check blood glucose levels 1 Each 07/31/2019 5:[address] [facility] 9 Active lancets 30 gauge To be used to check blood glucose levels 100 Each 07/31/2019 5:[address] 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 Esophagitis, Crosby grade C 10/03/2018 Moderate protein-calorie malnutrition 09/30/2018 Overview (11/11/2019): ASPEN Malnutrition Assessment and Findings Subcutaneous Fat Loss Assessment: Moderate fat loss (11/11/19 143) Muscle Wasting Assessment: Severe (11/11/19 143) Edema: Normal contour with a barely perceptible pit (no findings) (11/11/19 1430) Hand Material Planning Analyst: Unable to assess(s/p cath ) (11/11/19 143) [...] 09/2017 H/O supraventricular tachycardia 12/18/2017 Overview (12/18/2017): [place] to be caffeine induced Intractable vomiting with [...] on file Legal Sex Female 3:09 AM LIGHT BULB TESTER Gender Identity Not on file Sexual Orientation [...] Screening 06/26/2029 Medical Devices Implanted Type Area Controls Technician Device Identifier Shelf Expiration Date Model / Serial / Lot Powerline-02/16 Implanted:Qty : 1 on 03/06/2019 by Ovi Cohen MD Catheter Right: Chest [id number] 03/18/2021 [id number] / / [id number] 18f 30cm Gj Feeding Tube- 9 Implanted:Qty : 1 on 10/15/2018 by Ovi Cohen MD Feeding Device Jejunum 03/19/20200-18-3 0 / / [id number] Hemostatic Surgicel 3x4in 1945 - [id number] Implanted: by Pelon Rose DPM at [facility] (Quantity not on file) Hemostatic Left: Foot [employer] 02/15/2023 1945 / / [id number] Explanted Type Area Controls Technician Device Identifier Shelf Expiration Date Model / Serial / Lot 16fr 30cm Richy Gastro-Jejuna l Feeding Tube- 9 Implanted:Qty : 1 on 10/08/2018 by Luis Alberto Fields MD Explanted:Qty : 1 on 10/15/2018 by Ovi Cohen MD Feeding Device N/A: Abdomen 01/18/20200-16-3 0 / / [id number] Procedures Procedure Name Priority Date/Time Associated Diagnosis Comments LIPID PANEL Routine 11/11/2019 9:47 AM CDT HEMOGLOBIN A1C Routine 11/11/2019 5:10 AM CDT COLONOSCOPY REPORT 06/26/2019 4: 22 PM LIGHT BULB TESTER from Last 3 Months or Most Recently Relevant to Health Maintenance Results * (ABNORMAL) LIPID PANEL (11/11/2019 9:47 AM CDT) CHOLESTEROL 133 <200 mg/dL 11/12/2019 12:47 AM CDT [facility] TRIGLYCERIDE 165(H) <150 mg/dL 11/12/2019 12:47 AM CDT [facility] HDL 45 40 - 59 mg/dL 11/12/2019 12:47 AM CDT [facility] LDL CALCULATED 55 <100 mg/dL 11/12/2019 12:47 AM CDT [facility] NON-HDL CHOLESTEROL 88 <130 mg/dL 11/12/2019 12:47 AM T [facility] Blood Venipuncture / Unknown 11/11/2019 9:47 AM CDT 11/11/2019 9:52 AM CDT Narrative [facility] - 11/12/2019 12:47 AM CDT TOTAL [...] esult Performing Organization Address [facility] Co de Phone Number [facility] CLIA# [id number] [facility] [place] [address] * (ABNORMAL) HEMOGLOBIN A1C (11/11/2019 5:10 AM CDT) HEMOGLOBIN A1C 8.9(H) <=5.6 % 11/11/2019 12:26 PM CDT [facility] EST. AVG GLUCOSE, A1C 209 mg/dL 11/11/2019 12:26 PM CDT [facility] Blood Venipuncture / Unknown 11/11/2019 5:10 AM CDT 11/11/2019 5:12 AM CDT Narrative [facility] - 11/11/2019 12:26 PM CDT HGB A1C INTERPRETATION NORMAL: <5.7% PRE-DIABETES: 5.7 - 6.4% DIABETES: 6.5% OR GREATER Rubia Macias MD CHEMISTRY ORDERABLES Final R esult Performing Organization Address [facility] Co de Phone Number [facility] CLIA# [id number] [address] [place] [address] * COLONOSCOPY REPORT (06/26/2019 4:22 PM LIGHT BULB TESTER) Narrative Procedure Note Adryan Ibarra MD - 06/26/2019 4:21 PM CST [facility] GI Patient Name: Cherrie Solomon Procedure [...] answered and informed consent was obtained. - Corea Protocol: - Pre-procedure Verification: Prior to the [...] PM Scope Out: 4:09:59 PM [address] Adryan Ibarra MD GI PROCEDURE ORDERABL ES Final Result from Last 3 Months or Most Recently Relevant to Health Maintenance Insurance RX INFOCROSSING Medicaid [place] Member Subscriber Plan / Payer (Ef fective 2020-Present) Name:Solomon, Cherrie M Relation to Subscriber:Self Name:Cherrie Solomon Payer ID:[id number] Group ID:Not on file Type:Medicaid Address: [address] [id number] [place] Advance Directives For more information, please contact: [phone] * Full Code (Latest Code Status on [...] 7:14 AM 07/31/2019 8:10 PM Care Teams Manager Of Digital Relationship Specialty Start Date End Date Kentrell Herring MD [address] [place] [address] PCP - General Family Practice 09/19/18
--- OUTSIDE RECORDS SUMMARY | 2025-06-10 17:48 | XMS_ITS | Encounter Summary ---
Author Organization [facility] Address [address] [place] [address] Care Team Providers Care Skein Yard Drier Name Role Phone Kentrell Herring MD Primary Care Provider + Encounter Details Date Type Department Care Team (Late st Contact Info) Description 11/27/2007 Emergency [facility] Emergency Department 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 WBC URINE 20-30 [facility] BACTERIA UA Moderate(A ) None Seen [facility] RBC UA 0-2 0 - 2 [facility] Urine specimen (specimen) 11/27/2007 3:20 PM CDT 11/27/2007 3:20 PM CDT Narrative [facility] - 11/27/2007 3:46 PM CDT Microscopic ordered by policy Kelly Pereira MD URINE ORDERABLES Final Result Performing Organization Address City/[facility] de Phone Number [facility] [address] [place] [address] * (ABNORMAL) URINALYSIS (11/27/2007 3:20 PM CDT) COLOR UA Yellow Straw [facility] SPECIFIC GRAVITY UA 1.025 <=1.005 [facility] GLUCOSE UA 500 mg/dl(A) NEGATIVE [facility] PH UA 5.0 5.0 - 9.0 [facility] BILIRUBIN UA NEGATIVE NEGATIVE [facility] NITRITE UA NEGATIVE NEGATIVE [facility] KETONES UA >=80 mg/dl(A) NEGATIVE [facility] MICRO EXAM Yes(A) No [facility] LEUKOCYTE ESTERASE UA Trace(A) NEGATIVE [facility] PROTEIN UA Trace(A) NEGATIVE [facility] BLOOD UA Trace(A) NEGATIVE [facility] CLARITY UA Cloudy(A) Clear [facility] UROBILINOGEN UA 0.2 0.2 [facility] Urine specimen (specimen) 11/27/2007 3:20 PM CDT 11/27/2007 3:20 PM CDT us Kelly Pereira MD URINE ORDERABLES Final Result Performing Organization Address [facility] de Phone Number [facility] [address] [place] [address] * (ABNORMAL) POC GLUCOSE (11/27/2007 3:18 PM CDT) GLUCOSE POC 317(H) 60 - 100 mg/dL [facility] Venous blood specimen (specimen) 11/27/2007 3:18 PM CDT 11/28/2007 10:57 AM CDT us Kelly Pereira MD POINT OF CARE TESTING Final Res ult Performing Organization Address [facility] Co de Phone Number [facility] [address] [place] [address] * (ABNORMAL) POC GLUCOSE (11/27/2007 1:21 PM CDT) GLUCOSE POC 293(H) 60 - 100 mg/dL [facility] Venous blood specimen (specimen) 11/27/2007 1:21 PM CDT 11/28/2007 10:57 AM CDT Kelly Pereira MD POINT OF CARE TESTING Final Res ult Performing Organization Address [facility] de Phone Number [facility] [address] [place] [address] * (ABNORMAL) URINALYSIS MICROSCOPY ONLY (11/27/2007 11:22 AM CDT) Pathologist [facility] WBC URINE 11-15(A) 0 - 2 [facility] BACTERIA UA Small(A) None Seen [facility] RBC UA 0-2 0 - 2 [facility] HYALINE CAST None Seen 0 - [address] [facility] Urine specimen (specimen) 11/27/2007 11:22 AM CDT 11/27/2007 11:25 AM CDT Narrative [facility] - 11/27/2007 11:36 AM CDT Microscopic ordered by policy Kelly Pereira MD URINE ORDERABLES Final Result Performing Organization Address [facility] de Phone Number [facility] [address] [place] [address] * (ABNORMAL) URINALYSIS (11/27/2007 11:22 AM CDT) PH UA 5.5 5.0 - 9.0 [facility] BILIRUBIN UA NEGATIVE NEGATIVE [facility] LEUKOCYTE ESTERASE UA Trace(A) NEGATIVE [facility] MICRO EXAM Yes(A) No [facility] KETONES UA >=80 mg/dl(A) NEGATIVE [facility] COLOR UA Yellow Straw [facility] PROTEIN UA 30 mg/dl(A) NEGATIVE [facility] BLOOD UA Trace(A) NEGATIVE [facility] NITRITE UA NEGATIVE NEGATIVE [facility] UROBILINOGEN UA 0.2 0.2 [facility] CLARITY UA SL CLOUDY Clear [facility] GLUCOSE UA >=1000 mg/dl(A) NEGATIVE [facility] SPECIFIC GRAVITY UA 1.020 <=1.005 [facility] Urine specimen (specimen) 11/27/2007 11:22 AM CDT 11/27/2007 11:25 AM CDT Kelly Pereira MD URINE ORDERABLES Final Result Performing Organization Address [facility] Phone Number [facility] [address] [place] [address] * TSH (11/27/2007 10:09 AM CDT) TSH 0.490 0.350 - 5.500 uIU/ml [facility] Blood specimen (specimen) 11/27/2007 10:09 AM CDT 11/27/2007 10:13 AM CDT Kelly Pereira MD CHEMISTRY ORDERABLES Final Resu lt Performing Organization Address [facility] Phone Number [facility] [address] [place] [address] * (ABNORMAL) COMPREHENSIVE METABOLIC PANEL (11/27/2007 10:09 AM CDT) CREATININE 0.6(L) 0.7 - 1.2 mg/dL [facility] CALCIUM 9.5 8.4 - 10.5 mg/dL [facility] ALT 24 4 - 36 IU/L [facility] OSMOLALITY, CALCULATED 289 275 - 295 mOsm/Kg [facility] GLUCOSE 333(H) 70 - 110 mg/dL [facility] CHLORIDE 101 95 - 110 mEq/L [facility] ALKALINE PHOSPHATASE 100 25 - 100 U/L [facility] ALBUMIN/GLOBULIN RATIO 1.3 1.0 - 2.3 [facility] SODIUM 134(L) 136 - 145 mEq/L [facility] TOTAL PROTEIN 7.9 6.3 - 8.2 g/dL [facility] BILIRUBIN TOTAL 0.4 0.3 - 1.2 mg/dL [facility] BUN 12 7 - 17 mg/dL [facility] CO2 17(L) 22 - 32 mmol/l [facility] ANION GAP 20 9 - 20 mEq/L [facility] AST 21 8 - 33 U/L [facility] ALBUMIN 4.4 3.5 - 5.0 g/dL [facility] POTASSIUM 3.8 3.5 - 5.0 mEq/L [facility] GLOBULIN (CALC) 3.5 2.4 - 3.9 g/dL [facility] Blood specimen (specimen) 11/27/2007 10:09 AM CDT 11/27/2007 10:13 AM CDT us Kelly Pereira MD CHEMISTRY ORDERABLES Final Resu lt [facility] [address] [place] [address] * (ABNORMAL) CBC WITH DIFFERENTIAL (11/27/2007 10:09 AM CDT) NEUTROPHIL ABSOLUTE 7.7 2.0 - 8.0 K/ul [facility] NEUTROPHILS 81.1(H) 42.2 - 75.2 % [facility] HEMATOCRIT 43.8 36.0 - 46.0 % [facility] MCH 26.9(L) 27.0 - 34.0 pg [facility] EOSINOPHILS 0.6 0.0 - 7.0 % [facility] PLATELETS 360 140 - 440 K/ul [facility] EOSINOPHIL ABSOLUTE 0.1 0.0 - 0.7 K/ul [facility] RBC 5.50(H) 4.20 - 5.40 Mil/ul [facility] LYMPHOCYTES 14.1(L) 24.0 - 44.0 % [facility] MCHC 33.8 30.0 - 35.0 g/dL [facility] LYMPHOCYTE ABSOLUTE 1.3 1.2 - 4.0 K/ul [facility] MPV 8.7(L) 8.9 - 12.8 Fl [facility] BASOPHILS ABSOLUTE 0.0 0.0 - 0.2 K/ul [facility] BASOPHILS 0.3 0.0 - 1.0 % [facility] HEMOGLOBIN 14.8 12.0 - 16.0 g/dL [facility] RDW 13.5 11.0 - 14.5 % [facility] MONOCYTE ABSOLUTE 0.4 0.1 - 0.6 K/ul [facility] MONOCYTES 3.9 2.0 - 10.0 % [facility] WBC 9.4 4.5 - 11.0 K/ul [facility] MCV 79.6(L) 84.0 - 103.0 Fl [facility] Blood specimen (specimen) 11/27/2007 10:09 AM CDT 11/27/2007 10:13 AM CDT Kelly Pereira MD HEMATOLOGY ORDERABLES Final Res ult Performing Organization Address City/[facility] Phone Number [facility] [address] [place] [address] * ETHANOL (11/27/2007 10:09 AM CDT) ETHANOL <10 <=10 mg/dL [facility] ETHANOL % <0.010 <=0.010 % [facility] Blood specimen (specimen) 11/27/2007 10:09 AM CDT 11/27/2007 10:13 AM CDT Kelly Pereira MD CHEMISTRY ORDERABLES Final Resu lt [facility] [address] [place] [address] documented in this encounter Visit Diagnoses Not on filedocumented in this encounter Care Teams Skein Yard Drier Relationship Specialty Start Date End Date Kentrell Herring MD [address] [place] [address] PCP - General Family Practice 09/19/18 documented as of this encounter
--- OUTSIDE RECORDS SUMMARY | 2025-06-10 17:48 | XMS_ITS | Encounter Summary ---
Author Organization [facility] Address [address] [place] [address] Care Team Providers Care Refurbish Technician Name Role Phone Kentrell Herring MD Primary Care Provider + Encounter Details Date Type Department Care Team (Late st Contact Info) Description 11/27/2007 Outpatient Historical [facility] Aman Allen MD [address] [place] [address] Charles Cantu Jr., MD [address] [place] [address] Social History Tobacco Use Types Packs/Day Years Used Date Smoking Tobacco: Never Assessed Comments Unknown Sex and Gender Information Value Date Recorded Sex Assigned at Not on file 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 Gender Identity Not on file Sexual Orientation [...] AM CDT) HEPATITIS C AB Negative Negative [facility] Comment: HCV antibody testing is [...] ORDERABLES Final Resu lt Performing Organization Address [facility] Phone Number [facility] [address] [place] [address] * HEPATITIS B SURFACE ANTIGEN (11/27/2007 8:12 AM CDT) HEPATITIS B SURFACE AG Negative Negative [facility] Blood specimen (specimen) 11/27/2007 8:12 AM CDT 11/27/2007 8:12 AM CDT Aman Allen MD CHEMISTRY ORDERABLES Final Resu lt Performing Organization Address [facility] Phone Number [facility] [address] [place] [address] * RPR (11/27/2007 8:12 AM CDT) Pathologist [facility] RPR Non-Reactiv e Non-Reacti ve [facility] Blood specimen (specimen) 11/27/2007 8:12 AM CDT 11/27/2007 8:12 AM CDT us Aman Allen MD CHEMISTRY ORDERABLES Final Resu lt Performing Organization Address [facility] Phone Number [facility] [address] [place] [address] * HCG QUANTITATIVE, BLOOD (11/27/2007 8:00 AM CDT) CHORIONIC GONADOTROPIN, TOTAL <2.0 0.0 - 10.0 mlU/ML [facility] Comment: Total HCG levels between 10 mIU/mL and 25 mIU/mL may be indicative of early but need to be correlated with other clinical findings. HCG ranges during normal , as reported by the production tool engineer, are summarized as follows: Gestational Age Expected [...] Allen MD CHEMISTRY ORDERABLES Final Resu lt [facility] [address] [place] [address] * DRUG SCREEN, URINE (11/27/2007 7:12 AM CDT) OPIATE QUAL, URINE Drug Negative Drug Negative [facility] PCP QUAL, URINE Drug Negative Drug Negative [facility] COCAINE QUAL URINE Drug Negative Drug Negative [facility] CANNABINOIDS QUAL, URINE Drug Negative Drug Negative [facility] AMPHETAMINE QUAL, URINE Drug Negative Drug Negative [facility] Comment: All components of the [...] BENZODIAZEPINE QUAL, URINE Drug Negative Drug Negative [facility] BARBITURATE QUAL, URINE Drug Negative Drug Negative [facility] 11/27/2007 7:12 AM CDT 11/27/2007 7:12 AM CDT us Aman Allen MD URINE ORDERABLES Final Result Performing Organization Address City/State/[facility] Co de Phone Number [facility] [address] [place] [address] documented in this encounter Visit Diagnoses Not on filedocumented in this encounter Care Teams Refurbish Technician Relationship Specialty Start Date End Date Kentrell Herring MD [address] [place] [address] PCP - General Family Practice 09/19/18 documented as of this encounter
--- OUTSIDE RECORDS SUMMARY | 2025-06-10 17:48 | XMS_ITS | Encounter Summary ---
Author Organization [facility] Address [address] [place] [address] Care Team Providers Care Vegetable Washing Machine Operator Name Role Phone Kentrell Herring MD Primary [...] PELVIS COMPLETE Awilda Trotter NP [address] [place] [address] Phone: tel: fax: [facility]trasound [address] 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
--- OUTSIDE RECORDS SUMMARY | 2025-06-10 17:48 | XMS_ITS | Encounter Summary ---
Author Organization [facility] Address 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 Records in media. * Telephone Encounter - Lelia Alvarez - 03/11/2025 5:31 PM CDT Left V.M. for patient to call office and schedule [facility] HFU appointment for week of March 15-March 19. * Telephone Encounter - Lelia Alvarez - 03/11/2025 5:27 PM CDT Give her first available next week, per Dr. Simpson * Telephone Encounter - Lelia Alvarez - 03/10/2025 3:27 PM CDT Sent [employer] message to Dr. Simpson and Anai Castellanos to see if able to do HFU on Thursday 03/15 * Telephone Encounter - Tish Baum - 03/10/2025 1:34 PM CDT Copied from [facility] #[id number]. Topic: CPA Information Request - Appointment/Location Information >> Mar 10, 2025 1:33 PM Tish Laird wrote: Caller is requesting the following information: Other Caller Notes (Not Required): The patient called to schedule a hospital follow up appointment. I made a scheduling error. I called the patient and asked her to call us back to reschedule it. She was discharged from [facility] on 03/02/2025. The soonest she can come in is 03/12/2025. Please schedule the hospital follow up and advise of the SONIDO to be signed. Ask if caller would like to also receive a link in THREAT STREAM to view the details for the upcoming appointments. Would caller like THREAT STREAM message with link to appointment details? No Patient Access Instructions 1. Link appointment in attachment section below. 2. Select Resolve Reason and Click Close CRM. documented in this encounter Plan of Treatment Upcoming Encounters Date Type Department Care Team (Late st Contact Info) Description 07/02/2025 11:00 AM PULP MILL SUPERVISOR Office Visit [address] [phone] Monika Simpson MD [address] [place] [phone] documented as of this encounter Visit Diagnoses Not on filedocumented in this encounter Additional Health Concerns Assessment Noted Time PHQ-9 Depression Total Score: 2 03/12/20 24 8:33 AM CDT documented as of this encounter Care Teams Automation Machine Builder Relationship Specialty Start Date End Date Monika Simpson MD [address] [place] [phone] PCP - General Family Practice 03/12/24 documented as of this encounter
--- NOTE | 2025-06-10 17:58 | XRR_ITS ---
PROCEDURE INFORMATION: Exam: XR Chest Exam date and time: 06/10/2025 7:13 PM Age: 45 years old Clinical indication: Pain; On breathing; Additional info: Sepsis TECHNIQUE: Imaging protocol: Radiologic exam of the chest. Views: 1 view. COMPARISON: CR XR chest 1V portable [id number] 11/09/2024 11:38 AM FINDINGS: Tubes, catheters and devices: Interval removal of previously seen right-sided PICC. Lungs: Unremarkable. No consolidation. Pleural spaces: Unremarkable. No pleural effusion. No pneumothorax. Heart/Mediastinum: Mild cardiomegaly. Bones/joints: Partially visualized cervical spine fusion hardware. XR/XR chest 1V portable [id number] IMPRESSION: No acute cardiopulmonary findings.
--- NOTE | 2025-06-10 18:00 | ECG_ITS ---
[employer] (Inspect Manager)[facility] Test Date: 2025-06-10 Pat Name: Cherrie Solomon Department: Room: Gender: Female Compacting Machine Operator/Tender: : 1980 Requested By: Chayo Hollingsworth Order Number: [id number] Jeff MD: Joseluis Tracy M.D. Measurements Intervals [place] Rate: 111 P: 73 VT: 139 QRS: 28 QRSD: 105 T: 82 QT: 321 QTc: 437 Interpretive Statements SINUS TACHYCARDIA WITH OCCASIONAL SUPRAVENTRICULAR PREMATURE COMPLEXES NONSPECIFIC T-WAVE ABNORMALITY ABNORMAL RHYTHM ECG Compared to ECG 04/24/2025 15:27:45 T-wave abnormality now present Sinus rhythm no longer present Electronically Signed On 06-11-2025 15:24:39 CDT by Joseluis Tracy M.D. [email or web address]
--- NOTE | 2025-06-10 18:08 | XRR_ITS ---
PROCEDURE INFORMATION: Exam: XR Right Knee Exam date and time: 06/10/2025 7:15 PM Age: 45 years old Clinical indication: Other: Sores, sepsis, bilateral stumps. Need bilateral stump x-rays to rule out; Prior surgery; Surgery date: 6+ months; Surgery type: Bilat amputation TECHNIQUE: Imaging protocol: Radiologic exam of the right knee. Views: 1 or 2 views. COMPARISON: MR knee RT wo con* [id number] 11/02/2024 3:37 PM FINDINGS: Bones/joints: Status post [id number]-oxo-[id number] amputation. Diffuse osteopenia. No acute displaced fracture or dislocation. Soft tissues: Soft tissue edema. No definite soft tissue gas appreciated. Vasculature: Vascular calcifications. XR/XR knee RT 1-2V [id number] IMPRESSION: No definite soft tissue gas appreciated. Soft tissue edema. Status post [id number]-xyw-[id number] amputation.
--- NOTE | 2025-06-10 18:08 | XRR_ITS ---
PROCEDURE INFORMATION: Exam: XR Left Knee Exam date and time: 06/10/2025 7:14 PM Age: 45 years old Clinical indication: Other: Sores, sepsis, bilateral stumps. Need bilateral stump x-rays to rule out; Prior surgery; Surgery date: 6+ months; Surgery type: Bilat amputations TECHNIQUE: Imaging protocol: Radiologic exam of the left knee. Views: 1 or 2 views. COMPARISON: MR knee LT wo con* [id number] 11/02/2024 3:00 PM FINDINGS: Bones/joints: Status post pgzbj-xpr-vjtk amputation. Extensive heterotrophic calcifications are present. No fracture or dislocation. Soft tissues: Soft tissue edema. No definite soft tissue gas appreciated. Vasculature: Extensive vascular calcifications. XR/XR knee LT 1-2V [id number] IMPRESSION: No fracture or dislocation. 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
--- NOTE | 2025-06-10 18:10 | W.ED.GENADLT ---
Documented by User: SAMUEL Patel 06/10/25 22:58 HPI - General Adult General: Chief complaint: General Medical Stated complaint: NEO leg pain Time Seen by Provider: 06/10/25 17:55 History of Present Illness: Patient is a 45-year-old female with right below knee the amputation, and left above-knee amputation that presents to the emergency room due to nausea, vomiting, rigors. Patient crawls from her bed to the bathroom and back to her bed instead of her wheelchair transferring. She has sores on bilateral stumps. Denies any dysuria or shortness of breath. No chest pain. Patient has had nausea, and vomiting today. Multiple times. No change in stools. She was unaware of fever at home. Fever in triage is 101.1 ?F. Heart rate is 129. Denies exposure to illness. Denies any sacral decubitus. Associated symptoms: Reports malaise and nausea; Deny chest pain, dyspnea, headache(s), palpitations or vomiting Related Data Home Medications ?Medication ?Instructions ?Recorded ?Confirmed quetiapine 100 mg tablet 100 mg PO BEDTIME 09/13/24 04/25/25 isosorbide dinitrate 20 mg tablet 20 mg PO BID 01/06/25 04/25/25 naloxone 4 mg/actuation nasal See Rx Instructions .Route .COMPLEX 01/06/25 04/25/25 spray (Narcan) quetiapine 50 mg tablet 50 mg PO QAM 02/05/25 04/25/25 metoclopramide HCl 10 mg tablet 5 mg PO QID 03/13/25 04/25/25 atorvastatin 10 mg tablet 10 mg PO DAILY 04/25/25 04/25/25 cyclobenzaprine 5 mg tablet 5 mg PO TID PRN Spasms 04/25/25 04/25/25 Previous Rx's ?Medication ?Instructions ?Recorded pregabalin 75 mg capsule (Lyrica) 75 mg PO BID #60 caps 01/30/25 clonidine HCl 0.1 mg tablet 0.1 mg PO TID PRN Hypertension #30 04/28/25 tabs fluoxetine 20 mg capsule 20 mg PO BEDTIME #30 caps 04/28/25 hydralazine 50 mg tablet 50 mg PO TID #90 tabs 04/28/25 nifedipine 30 mg tablet,extended 60 mg (2 x 30 mg) PO QAM #30 tabs 04/28/25 release 24 hr oxycodone-acetaminophen 10 mg-325 1 tab PO Q6H PRN Moderate Pain #30 04/28/25 mg tablet tabs Allergies Allergy/AdvReac Type Severity Reaction Status Date / Time morphine Allergy ALGY-Difficulty Verified 09/12/24 20:19 Breathing sulfamethoxazole (From Allergy ADR-Vomitin Verified 09/12/24 20:19 Bactrim) g trimethoprim (From Bactrim) Allergy ADR-Vomitin Verified 09/12/24 20:19 g Review of Systems General: Reports: 10 or more systems reviewed and unremarkable except in HPI and below Const: Reports: chills, fatigue and malaise; Denies: fever(s) ENMT: Denies: throat pain Card: Denies: chest pain or palpitations Resp: Denies: dyspnea or non-productive cough GI: Reports: nausea; Denies: abdominal pain or vomiting : Denies: flank pain or difficulty voiding Musc: Reports: extremity pain, joint pain, joint swelling and joint warmth; Denies: neck pain, back pain or extremity swelling Skin/Breast: Reports: skin tenderness and non-healing lesions Neuro: Denies: headache(s) or numbness in extremities Psych: Denies: anxiety or depression PFSH ED PFSH: Medical History (Updated 06/10/25 @ 22:21 by Ericka Whiteside MD) Opiate withdrawal Uncontrolled hypertension Dysthymic disorder ALEJANDRO (generalized anxiety disorder) Chronic kidney disease Combative behavior Back pain Acute kidney injury superimposed on CKD Chronic pain Type 1 diabetes mellitus with other skin ulcer Suicide attempt Urinary retention Septic prepatellar bursitis of left knee Hyperglycemia Anemia of chronic disease Insomnia GERD (gastroesophageal reflux disease) ALEJANDRO (generalized anxiety disorder) C. 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 Toe infection PTSD (post-traumatic stress disorder) Gastroparesis (~11/2024) Depression Suicidal ideation Nausea & vomiting Diabetic ophthalmopathy Hypertension Foot osteomyelitis, right Non-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 CKD (chronic kidney disease) stage 2, GFR 60-89 ml/min baseline Cr is around 1.0 Diabetic foot ulcer s/p surgical intervention and eventual amputation Hyperlipidemia Coronary artery disease hx of stenting Diabetic gastroparesis Diabetes mellitus type 1 diagnosed age 15, history of peripheral neuropathy, gastroparesis and nephropathy Surgical History (Updated 04/29/25 @ 00:00 by LAURIE Garrido) Status post above-knee amputation of left lower extremity Status post below knee amputation of right lower extremity Hx of angioplasty H/O esophagogastroduodenoscopy (12/31/20) Bile reflux gastritis, grade B esophagitis Hx of cholecystectomy History of amputation of right forefoot Below-knee amputation of left lower extremity S/P percutaneous endoscopic gastrostomy (PEG) tube placement H/O exploratory laparotomy x 3 Previous section x 3 S/P coronary artery stent placement x 1 Family History Unknown Diabetes extensive, type II Other Congestive heart failure (CHF) Social History Smoking and tobacco/nicotine status: former use of tobacco/nicotine Quit status (tobacco/nicotine): has quit using Former quit date comment: 15 yrs ago Alcohol intake: former Former alcohol use details: 15 yrs ago Substance/Drug Use: current Substance/Drug use frequency: daily Household members: spouse Marital status: Current occupation: disabled Sexually active: Yes (1, ) Female Reproductive History: Spontaneous abortions: No Physical Exam Const: COMMON NORMALS: no acute distress, average body habitus and patient oriented x3 GENERAL APPEARANCE: cooperative, in distress, disheveled and ill appearing HENMT: COMMON NORMALS: normocephalic and atraumatic HEAD & SCALP: normocephalic and atraumatic Lymph: LYMPHATIC: no lymphadenopathy noted Chest: COMMONS NORMALS: normal inspection of the chest and normal palpation of entire chest wall Resp: COMMON NORMALS: normal respiratory effort, No retractions and clear to auscultation bilaterally AUSCULTATION: clear to auscultation bilaterally Cardio: COMMON NORMALS: regular rate and regular rhythm RATE: regular rate RHYTHM: regular rhythm GI: COMMON NORMALS: Normal to inspection, nondistended, normoactive bowel sounds present, Soft to palpation, non-tender and No hepatosplenomegaly present PALPATION: Yes Soft to palpation and Yes No hepatosplenomegaly present Neuro: COMMON NORMALS: patient oriented x3 Course Consultations: Consultation #1: accepted by hospitalist Vital Signs: Vital signs: Vital Signs Temperature 98.1 F 06/10/25 22:33 Pulse Rate 92 06/10/25 22:33 Respiratory Rate 16 06/10/25 22:33 Blood Pressure 162/75 06/10/25 22:33 Pulse Oximetry 98 06/10/25 22:33 Oxygen Delivery Me thod Room Air 06/10/25 22:33 MDM - General Adult Medical Decision Making Patient is a 45-year-old female that reported to the emergency room with bilateral leg pain. She had stage II decubitus to bilateral amputations, right leg below knee, left leg above-knee. There were x-ray changes on left above-knee amputation that were different than before, and sclerosis to right below knee. CT of the bilateral knees were obtained for further discernment and concern of osteomyelitis with her association of FIONA. Discussed with hospitalist for admission. Vancomycin and cefepime loaded. Discussed with attending here in the emergency room. Since that time, CT of lower extremity show diffuse osteopenia in the left lower extremity and extensive heterotrophic calcifications but no fractures, which is reassuring that osteomyelitis may not be the underlying concern; however no contrast was able to be done since the patient has a creatinine of 5. There is pain erosive tibial stone to the distal portion of the right lower extremity, which would be concerning for osteomyelitis, which I was concerned about the x-ray of sclerosis versus OM. She is referred to the hospitalist team for antibiotic coverage, with cultures already drawn, and pain has been improved with Dilaudid x 1. All of her questions answered satisfaction ATTENDING PHYSICIAN ATTESTATION: I, Ericka Whiteside MD, have provided a substantive portion of the care for this patient. I have personally evaluated this patient, performed an independent history, physical exam, reviewed labwork, imaging, and agree with the plan of care as hereby documented by NIEVES. MDM: Patient is a 45-year-old female with a medical history of diabetes complicated by amputation of the right lower extremity below the knee and left lower extremity above the knee. For the past 3 days, patient has felt ill and has experienced chills. Patient is febrile on arrival. Patient states that she has pain in her lower extremities, erythema and swelling in the left lower extremity. Patient has increased pain in the left lower extremity as well but has not noted any purulent drainage. Patient has not had any runny nose, sore throat, chest pain, cough or shortness of breath. She denies any abdominal pain and has not vomited but has been feeling nauseated. She denies any dysuria, hematuria, diarrhea or blood in stool. Exam: Patient is ill-appearing. She is febrile, tachycardic and tachypneic; vitals are concerning for sepsis. Patient has erythema, swelling and pain of the left lower extremity. Patient has clear lung sounds bilaterally, normal heart sounds and soft, nondistended nontender abdomen. I reviewed patient's lab work which shows elevated white blood cell count, normal lactic acid however CRP is nearly 450. She also has an elevated procalcitonin of 2.49. Patient has FIONA and it appears that her creatinine has gradually worsened over the course the year. Given elevated anion gap, I feel that elevation in creatinine is new and consistent with FIONA. Patient was treated with IV fluids, IV Zofran and antibiotics. Patient was admitted. CT of LLE: IMPRESSION: CT LLE: 1. Status post ogqxs-[id number]-[id number] amputation with diffuse osteopenia and extensive heterotrophic calcifications. No fracture. 2. Soft tissue edema concerning for cellulitis. There are no definite osseous erosions, however due to extensive heterotrophic calcifications and lack of intravenous contrast evaluation for osteomyelitis is limited. If there is strong concern for osteomyelitis further evaluation with dedicated MRI is recommended. CT RLE: IMPRESSION: 1. Status post yqbwg-hoz-foeg amputation. 2. Extensive soft tissue inflammatory changes with suspected infrapatellar collection which may represent an abscess formation, limited evaluation due to lack of intravenous contrast. 3. Faint erosive changes within distal portion of the tibial stone which may represent component of osteomyelitis. Patient was admitted. Differential Diagnosis OM Lab Data I reviewed the patient's lab results. 06/10/25 18:30 06/10/25 18:30 Radiology Impressions Chest X-Ray 06/10/25 17:58 IMPRESSION: No acute cardiopulmonary findings. Knee X-Ray 06/10/25 18:08 IMPRESSION: No definite soft tissue gas appreciated. Soft tissue edema. Status post mlmsq-hpq-ujpq amputation. Knee CT 06/10/25 20:22 IMPRESSION: 1. Status post owmgh-ayg-qvjy amputation. 2. Extensive soft tissue inflammatory changes with suspected infrapatellar collection which may represent an abscess formation, limited evaluation due to lack of intravenous contrast. 3. Faint erosive changes within distal portion of the tibial stone which may represent component of osteomyelitis. Laboratory Results WBC 13.17 10^3/uL (3.29-11.43) H 06/10/25 18:30 RBC 2.46 10^6/uL (3.85-5.65) L 06/10/25 18:30 Hgb 7.40 g/dL (11.27-16.99) L 06/10/25 18:30 Hct 22.3 % (36-47) L 06/10/25 18:30 MCV 90.7 fl (85-98) 06/10/25 18: MCH 30.1 pg (27-33) 06/10/25 18: MCHC 33.2 g/dL (30-55) 06/10/25 18:30 RDW 13.9 % (12.1-15.1) 06/10/25 18:30 Plt Count 270 10^3/cmm (157-399) 06/10/25 18:30 MPV 10.0 fL (7.4-10.4) 06/10/25 18:30 Lymph % (Auto) Not Reportable 06/10/25 18:30 Hunt % (Auto) Not Reportable 06/10/25 18:30 Lymph # (Auto) Not Reportable 06/10/25 18:30 Hunt # (Auto) Not Reportable 06/10/25 18:30 Total Counted 100 (0-100) 06/10/25 18: Atypical Lymphs % 0.0 % (0-5) 06/10/25 18:30 Absolute Neutrophils 12.0 10^3/cmm (1.4-6.5) H 06/10/25 18:30 Segmented Neutrophils 89 % 06/10/25 18:30 Band Neutrophils 2.0 % 06/10/25 18:30 Absolute Lymphocytes 0.3 10^3/cmm (1.2-3.4) L 06/10/25 18:30 Lymphocytes (Manual) 2 % 06/10/25 18:30 Monocytes (Manual) 4.0 % 06/10/25 18:30 Absolute Monocytes 0.5 10^3/cmm (0.1-0.6) 06/10/25 18:30 Eosinophils (Manual) 0 % 06/10/25 18:30 Absolute Eosinophils 0.0 10^3/cmm (0.0-0.7) 06/10/25 18:30 Basophils (Manual) 0.0 % 06/10/25 18:30 Absolute Basophils 0.0 10^3/cmm (0.0-0.2) 06/10/25 18:30 Metamyelocytes 1.0 % 06/10/25 18: Myelocytes 2.0 % 06/10/25 18: Platelet Estimate Normal (Normal) 06/10/25 18:30 Sodium 132 mmol/L (136-145) L 06/10/25 18:30 Potassium 3.4 mmol/L (3.5-5.1) L 06/10/25 18:30 Chloride 95 mmol/L (98-107) L 06/10/25 18:30 Carbon Dioxide 11 mmol/L (22-29) L 06/10/25 18:30 Anion Gap 29.4 (5-19) H 06/10/25 18:30 BUN 89 mg/dL (6-20) H* D 06/10/25 18:30 Creatinine 5.2 mg/dL (0.5-0.9) H 06/10/25 18:30 GFR Calculation 8.9 mL/min (90-130) L 06/10/25 18:30 Glucose 81 mg/dL (65-115) 06/10/25 18:30 POC Glucose 84 mg/dL (70-110) 06/10/25 19:52 Calculated Osmolality 300 mOsm/kg (285-295) H 06/10/25 18:30 Lactic Acid 0.5 mmol/L (0.5-2.2) 06/10/25 18:30 Calcium 8.6 mg/dL (8.5-10.5) 06/10/25 18: Magnesium 2.3 mg/dL (1.7-2.3) 06/10/25 18:30 Total Bilirubin 0.5 mg/dL (0.15-1.2) 06/10/25 18:30 AST 28 U/L (0-32) 06/10/25 18:30 ALT 27 U/L (0-33) 06/10/25 18:30 Alkaline Phosphatase 248 U/L (35-105) H 06/10/25 18:30 Creatine Kinase 246 U/L (26-192) H 06/10/25 18:30 C-Reactive Protein 448.6 mg/L (0.0-4.9) H 06/10/25 18:30 NT-Pro-B Natriuret Pep 3968 pg/mL (0-125) H 06/10/25 18:30 Total Protein 7.2 g/dL (6.6-8.7) 06/10/25 18: Albumin 3.1 g/dL (3.5-5.2) L 06/10/25 18: Globulin 4.1 g/dL (1.3-4.6) 06/10/25 18: Lipase 22 U/L (13-60) 06/10/25 18: Procalcitonin 2.49 ng/mL (0-0.5) H 06/10/25 18: TSH 0.03 uIU/mL (0.27-4.20) L 06/10/25 18:30 Urine Color Yellow (Yellow) 06/10/25 18:17 Urine Appearance Cloudy (CLEAR) A 06/10/25 18:17 Urine pH 5.0 (5-7) 06/10/25 18:17 Ur Specific [place] 1.016 (1.005-1.030) 06/10/25 18:17 Urine Protein 3+ (Negative) A 06/10/25 18: Urine Glucose (UA) Negative (Normal) 06/10/25 18:17 Urine Ketones 1+ (Negative) H 06/10/25 18:17 Urine Blood 1+ (Negative) A 06/10/25 18:17 Urine Nitrate Negative (Negative) 06/10/25 18: Urine Bilirubin Negative (Negative) 06/10/25 18:17 Urine Urobilinogen 1.0 mg/dL (Negative) 06/10/25 18:17 Ur Leukocyte Esterase Negative (Negative) 06/10/25 18:17 Urine RBC 0-2 /hpf (0-2) 06/10/25 18:17 Urine WBC 0-5 /hpf (0-5) 06/10/25 18:17 Ur Squamous Epith Cells 0-5 /hpf (0-5) 06/10/25 18:17 Amorphous Sediment 1+ /hpf 06/10/25 18:17 Urine Bacteria None seen /hpf (NONE) 06/10/25 18:17 Hyaline Casts 3.71 /lpf 06/10/25 18:17 U Random Total Protein 433 mg/dL 06/10/25 18:17 Urine Creatinine 78 mg/dL (28-217) 06/10/25 18:17 Urine Opiates Screen Positive ng/mL (Negative) H 06/10/25 18:17 Ur Barbiturates Screen Negative ng/mL (Negative) 06/10/25 18:17 Ur Phencyclidine Scrn Negative ng/mL (Negative) 06/10/25 18:17 Ur Amphetamines Screen Negative ng/mL (Negative) 06/10/25 18:17 U Benzodiazepines Scrn Negative ng/mL (Negative) 06/10/25 18:17 Urine Cocaine Screen Negative ng/mL (Negative) 06/10/25 18:17 U Marijuana (THC) Screen Positive ng/mL (Negative) H 06/10/25 18:17 Ethyl Alcohol < 10 mg/dL (0-10) 06/10/25 18:30 Influenza A (PCR) Negative (Negative) 06/10/25 18:30 Influenza Type B (PCR) Negative (Negative) 06/10/25 18:30 RSV (PCR) Negative (Negative) 06/10/25 18:30 SARS-CoV-2 (PCR) Negative (Negative) 06/10/25 18:30 Discharge Plan Discharge Patient Disposition: Admitted As Inpatient Admit Provider: Page Ramirez Clinical Impression: FIONA (acute kidney injury), Acidosis, lactic, Cellulitis of left leg, Cellulitis and abscess of right leg, Abnormal TSH, Sepsis Condition: Stable Discharge Diet: Diabetic Discharge Activity: Resume usual activity Coding Level of Care Code ED Clinical Outcomes Manager for Chg Fwd Documented by User: Ericka Whiteside MD 06/10/25 22:19 HPI - General Adult General: Chief complaint: General Medical Stated complaint: NEO leg pain Time Seen by Provider: 06/10/25 17:55 Related Data Home Medications ?Medication ?Instructions ?Recorded ?Confirmed quetiapine 100 mg tablet 100 mg PO BEDTIME 09/13/24 04/25/25 isosorbide dinitrate 20 mg tablet 20 mg PO BID 01/06/25 04/25/25 naloxone 4 mg/actuation nasal See Rx Instructions .Route .COMPLEX 01/06/25 04/25/25 spray (Narcan) quetiapine 50 mg tablet 50 mg PO QAM 02/05/25 04/25/25 metoclopramide HCl 10 mg tablet 5 mg PO QID 03/13/25 04/25/25 atorvastatin 10 mg tablet 10 mg PO DAILY 04/25/25 04/25/25 cyclobenzaprine 5 mg tablet 5 mg PO TID PRN Spasms 04/25/25 04/25/25 Previous Rx's ?Medication ?Instructions ?Recorded pregabalin 75 mg capsule (Lyrica) 75 mg PO BID #60 caps 01/30/25 clonidine HCl 0.1 mg tablet 0.1 mg PO TID PRN Hypertension #30 04/28/25 tabs fluoxetine 20 mg capsule 20 mg PO BEDTIME #30 caps 04/28/25 hydralazine 50 mg tablet 50 mg PO TID #90 tabs 04/28/25 nifedipine 30 mg tablet,extended 60 mg (2 x 30 mg) PO QAM #30 tabs 04/28/25 release 24 hr oxycodone-acetaminophen 10 mg-325 1 tab PO Q6H PRN Moderate Pain #30 04/28/25 mg tablet tabs Allergies Allergy/AdvReac Type Severity Reaction Status Date / Time morphine Allergy ALGY-Difficulty Verified 09/12/24 20:19 Breathing sulfamethoxazole (From Allergy ADR-Vomitin Verified 09/12/24 20:19 Bactrim) g trimethoprim (From Bactrim) Allergy ADR-Vomitin Verified 09/12/24 20:19 g PFSH ED PFSH: Medical History (Updated 06/10/25 @ 22:21 by Ericka Whiteside MD) Opiate withdrawal Uncontrolled hypertension Dysthymic disorder ALEJANDRO (generalized anxiety disorder) Chronic kidney disease Combative behavior Back pain Acute kidney injury superimposed on CKD Chronic pain Type 1 diabetes mellitus with other skin ulcer Suicide attempt Urinary retention Septic prepatellar bursitis of left knee Hyperglycemia Anemia of chronic disease Insomnia GERD (gastroesophageal reflux disease) ALEJNADRO (generalized anxiety disorder) C. 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 Toe infection PTSD (post-traumatic stress disorder) Gastroparesis (~11/2024) Depression Suicidal ideation Nausea & vomiting Diabetic ophthalmopathy Hypertension Foot osteomyelitis, right Non-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 CKD (chronic kidney disease) stage 2, GFR 60-89 ml/min baseline Cr is around 1.0 Diabetic foot ulcer s/p surgical intervention and eventual amputation Hyperlipidemia Coronary artery disease hx of stenting Diabetic gastroparesis Diabetes mellitus type 1 diagnosed age 15, history of peripheral neuropathy, gastroparesis and nephropathy Surgical History (Updated 04/29/25 @ 00:00 by LAURIE Garrido) Status post above-knee amputation of left lower extremity Status post below knee amputation of right lower extremity Hx of angioplasty H/O esophagogastroduodenoscopy (12/31/20) Bile reflux gastritis, grade B esophagitis Hx of cholecystectomy History of amputation of right forefoot Below-knee amputation of left lower extremity S/P percutaneous endoscopic gastrostomy (PEG) tube placement H/O exploratory laparotomy x 3 Previous section x 3 S/P coronary artery stent placement x 1 Family History Unknown Diabetes extensive, type II Other Congestive heart failure (CHF) Social History Smoking and tobacco/nicotine status: former use of tobacco/nicotine Quit status (tobacco/nicotine): has quit using Former quit date comment: 15 yrs ago Alcohol intake: former Former alcohol use details: 15 yrs ago Substance/Drug Use: current Substance/Drug use frequency: daily Household members: spouse Marital status: Current occupation: disabled Sexually active: Yes (1, ) Course Vital Signs: Vital signs: Vital Signs Temperature 98.1 F 06/10/25 22:33 Pulse Rate 92 06/10/25 22:33 Respiratory Rate 16 06/10/25 22:33 Blood Pressure 162/75 06/10/25 22:33 Pulse Oximetry 98 06/10/25 22:33 Oxygen Delivery Me thod Room Air 06/10/25 22:33 MDM - General Adult Medical Decision Making ATTENDING PHYSICIAN ATTESTATION: I, Ericka Whiteside MD, have provided a substantive portion of the care for this patient. I have personally evaluated this patient, performed an independent history, physical exam, reviewed labwork, imaging, and agree with the plan of care as hereby documented by NIEVES. MDM: Patient is a 45-year-old female with a medical history of diabetes complicated by amputation of the right lower extremity below the knee and left lower extremity above the knee. For the past 3 days, patient has felt ill and has experienced chills. Patient is febrile on arrival. Patient states that she has pain in her lower extremities, erythema and swelling in the left lower extremity. Patient has increased pain in the left lower extremity as well but has not noted any purulent drainage. Patient has not had any runny nose, sore throat, chest pain, cough or shortness of breath. She denies any abdominal pain and has not vomited but has been feeling nauseated. She denies any dysuria, hematuria, diarrhea or blood in stool. Exam: Patient is ill-appearing. She is febrile, tachycardic and tachypneic; vitals are concerning for sepsis. Patient has erythema, swelling and pain of the left lower extremity. Patient has clear lung sounds bilaterally, normal heart sounds and soft, nondistended nontender abdomen. I reviewed patient's lab work which shows elevated white blood cell count, normal lactic acid however CRP is nearly 450. She also has an elevated procalcitonin of 2.49. Patient has FIONA and it appears that her creatinine has gradually worsened over the course the year. Given elevated anion gap, I feel that elevation in creatinine is new and consistent with FIONA. Patient was treated with IV fluids, IV Zofran and antibiotics. Patient was admitted. CT of LLE: IMPRESSION: CT LLE: 1. Status post gfwqm-rxn-czov amputation with diffuse osteopenia and extensive heterotrophic calcifications. No fracture. 2. Soft tissue edema concerning for cellulitis. There are no definite osseous erosions, however due to extensive heterotrophic calcifications and lack of intravenous contrast evaluation for osteomyelitis is limited. If there is strong concern for osteomyelitis further evaluation with dedicated MRI is recommended. CT RLE: IMPRESSION: 1. Status post rlqii-wvo-rawg amputation. 2. Extensive soft tissue inflammatory changes with suspected infrapatellar collection which may represent an abscess formation, limited evaluation due to lack of intravenous contrast. 3. Faint erosive changes within distal portion of the tibial stone which may represent component of osteomyelitis. Patient was admitted. Medical Records I reviewed the patient's medical records. Lab Data 06/10/25 18:30 06/10/25 18:30 Radiology Impressions Chest X-Ray 06/10/25 17:58 IMPRESSION: No acute cardiopulmonary findings. Knee X-Ray 06/10/25 18:08 IMPRESSION: No definite soft tissue gas appreciated. Soft tissue edema. Status post lwpxw-enq-kjri amputation. Knee CT 06/10/25 20:22 IMPRESSION: 1. Status post qsuno-noa-llyg amputation. 2. Extensive soft tissue inflammatory changes with suspected infrapatellar collection which may represent an abscess formation, limited evaluation due to lack of intravenous contrast. 3. Faint erosive changes within distal portion of the tibial stone which may represent component of osteomyelitis. Laboratory Results WBC 13.17 10^3/uL (3.29-11.43) H 06/10/25 18:30 RBC 2.46 10^6/uL (3.85-5.65) L 06/10/25 18:30 Hgb 7.40 g/dL (11.27-16.99) L 06/10/25 18:30 Hct 22.3 % (36-47) L 06/10/25 18:30 MCV 90.7 fl (85-98) 06/10/25 18:30 MCH 30.1 pg (27-33) 06/10/25 18:30 MCHC 33.2 g/dL (30-55) 06/10/25 18:30 RDW 13.9 % (12.1-15.1) 06/10/25 18:30 Plt Count 270 10^3/cmm (157-399) 06/10/25 18:30 MPV 10.0 fL (7.4-10.4) 06/10/25 18:30 Lymph % (Auto) Not Reportable 06/10/25 18:30 Hunt % (Auto) Not Reportable 06/10/25 18:30 Lymph # (Auto) Not Reportable 06/10/25 18:30 Hunt # (Auto) Not Reportable 06/10/25 18:30 Total Counted 100 (0-100) 06/10/25 18:30 Atypical Lymphs % 0.0 % (0-5) 06/10/25 18:30 Absolute Neutrophils 12.0 10^3/cmm (1.4-6.5) H 06/10/25 18:30 Segmented Neutrophils 89 % 06/10/25 18:30 Band Neutrophils 2.0 % 06/10/25 18:30 Absolute Lymphocytes 0.3 10^3/cmm (1.2-3.4) L 06/10/25 18:30 Lymphocytes (Manual) 2 % 06/10/25 18:30 Monocytes (Manual) 4.0 % 06/10/25 18:30 Absolute Monocytes 0.5 10^3/cmm (0.1-0.6) 06/10/25 18:30 Eosinophils (Manual) 0 % 06/10/25 18:30 Absolute Eosinophils 0.0 10^3/cmm (0.0-0.7) 06/10/25 18:30 Basophils (Manual) 0.0 % 06/10/25 18:30 Absolute Basophils 0.0 10^3/cmm (0.0-0.2) 06/10/25 18:30 Metamyelocytes 1.0 % 06/10/25 18: Myelocytes 2.0 % 06/10/25 18:30 Platelet Estimate Normal (Normal) 06/10/25 18:30 Sodium 132 mmol/L (136-145) L 06/10/25 18:30 Potassium 3.4 mmol/L (3.5-5.1) L 06/10/25 18:30 Chloride 95 mmol/L (98-107) L 06/10/25 18:30 Carbon Dioxide 11 mmol/L (22-29) L 06/10/25 18:30 Anion Gap 29.4 (5-19) H 06/10/25 18:30 BUN 89 mg/dL (6-20) H* D 06/10/25 18:30 Creatinine 5.2 mg/dL (0.5-0.9) H 06/10/25 18:30 GFR Calculation 8.9 mL/min (90-130) L 06/10/25 18:30 Glucose 81 mg/dL (65-115) 06/10/25 18:30 POC Glucose 84 mg/dL (70-110) 06/10/25 19:52 Calculated Osmolality 300 mOsm/kg (285-295) H 06/10/25 18: Lactic Acid 0.5 mmol/L (0.5-2.2) 06/10/25 18:30 Calcium 8.6 mg/dL (8.5-10.5) 06/10/25 18: Magnesium 2.3 mg/dL (1.7-2.3) 06/10/25 18: Total Bilirubin 0.5 mg/dL (0.15-1.2) 06/10/25 18: AST 28 U/L (0-32) 06/10/25 18: ALT 27 U/L (0-33) 06/10/25 18: Alkaline Phosphatase 248 U/L (35-105) H 06/10/25 18: Creatine Kinase 246 U/L (26-192) H 06/10/25 18: C-Reactive Protein 448.6 mg/L (0.0-4.9) H 06/10/25 18: NT-Pro-B Natriuret Pep 3968 pg/mL (0-125) H 06/10/25 18: Total Protein 7.2 g/dL (6.6-8.7) 06/10/25 18: Albumin 3.1 g/dL (3.5-5.2) L 06/10/25 18: Globulin 4.1 g/dL (1.3-4.6) 06/10/25 18: Lipase 22 U/L (13-60) 06/10/25 18: Procalcitonin 2.49 ng/mL (0-0.5) H 06/10/25 18: TSH 0.03 uIU/mL (0.27-4.20) L 06/10/25 18: Urine Color Yellow (Yellow) 06/10/25 18: Urine Appearance Cloudy (CLEAR) A 06/10/25 18: Urine pH 5.0 (5-7) 06/10/25 18: Ur Specific [place] 1.016 (1.005-1.030) 06/10/25 18: Urine Protein 3+ (Negative) A 06/10/25 18:17 Urine Glucose (UA) Negative (Normal) 06/10/25 18:17 Urine Ketones 1+ (Negative) H 06/10/25 18:17 Urine Blood 1+ (Negative) A 06/10/25 18:17 Urine Nitrate Negative (Negative) 06/10/25 18:17 Urine Bilirubin Negative (Negative) 06/10/25 18:17 Urine Urobilinogen 1.0 mg/dL (Negative) 06/10/25 18:17 Ur Leukocyte Esterase Negative (Negative) 06/10/25 18:17 Urine RBC 0-2 /hpf (0-2) 06/10/25 18:17 Urine WBC 0-5 /hpf (0-5) 06/10/25 18:17 Ur Squamous Epith Cells 0-5 /hpf (0-5) 06/10/25 18:17 Amorphous Sediment 1+ /hpf 06/10/25 18:17 Urine Bacteria None seen /hpf (NONE) 06/10/25 18:17 Hyaline Casts 3.71 /lpf 06/10/25 18:17 U Random Total Protein 433 mg/dL 06/10/25 18:17 Urine Creatinine 78 mg/dL (28-217) 06/10/25 18:17 Urine Opiates Screen Positive ng/mL (Negative) H 06/10/25 18:17 Ur Barbiturates Screen Negative ng/mL (Negative) 06/10/25 18:17 Ur Phencyclidine Scrn Negative ng/mL (Negative) 06/10/25 18:17 Ur Amphetamines Screen Negative ng/mL (Negative) 06/10/25 18:17 U Benzodiazepines Scrn Negative ng/mL (Negative) 06/10/25 18:17 Urine Cocaine Screen Negative ng/mL (Negative) 06/10/25 18:17 U Marijuana (THC) Screen Positive ng/mL (Negative) H 06/10/25 18:17 Ethyl Alcohol < 10 mg/dL (0-10) 06/10/25 18:30 Influenza A (PCR) Negative (Negative) 06/10/25 18:30 Influenza Type B (PCR) Negative (Negative) 06/10/25 18:30 RSV (PCR) Negative (Negative) 06/10/25 18:30 SARS-CoV-2 (PCR) Negative (Negative) 06/10/25 18:30 All radiology interpretation(s) finalized by discharge Discharge Plan Discharge Patient Disposition: Admitted As Inpatient Admit Provider: Page Ramirez Clinical Impression: FIONA (acute kidney injury), Acidosis, lactic, Cellulitis of left leg, Cellulitis and abscess of right leg, Abnormal TSH, Sepsis Condition: Stable Discharge Diet: Diabetic Discharge Activity: Resume usual activity Coding Level of Care Code ED Clinical Outcomes Manager for Kim Mitchell
[2025-06-10 18:48] LABS: Glucose Urine UA Negative (Normal); Nitrate Urine Negative (Negative); Specific Gravity, Urine 1.016 (1.005-1.030)
[2025-06-10 18:53] LABS: Add Urine Microscopic? YES
[2025-06-10 18:55] LABS: PCP Screen Urine Negative (Negative)
[2025-06-10 18:55] LABS: Hematocrit 22.3 % (36-47); Hemoglobin 7.40 g/dL (11.27-16.99); Mean Corpuscular HGB Conc 33.2 g/dL (30-55); Mean Corpuscular Hemoglobin 30.1 pg (27-33); Mean Corpuscular Volume 90.7 fl (85-98); Platelet Count 270 10^3/cmm (157-399); Red Blood Count 2.46 10^6/uL (3.85-5.65); White Blood Count 13.17 10^3/uL (3.29-11.43)
[2025-06-10 19:07] LABS: UA Slide Review UA Slide Review Perf
[2025-06-10] MEDS: ondansetron 2 mg/ML SDV 2 mL 4 MG IVP ×2 (19:09→22:31)
[2025-06-10 19:18] LABS: Lactic Sepsis W/Reflex 0.5 mmol/L (0.5-2.2)
[2025-06-10 19:30] LABS: NT Pro B Type Natriuretic Pept 3968 pg/mL (0-125); Procalcitonin 2.49 ng/mL (0-0.5); Thyroid Stimulating Hormone 0.03 uIU/mL (0.27-4.20)
[2025-06-10 19:39] LABS: Slide Review Slide Review Perform
[2025-06-10 19:41] LABS: Absolute Segmented Neutrophil 11.7 10/cmm (1.6-7.1); Alanine Aminotransferase 27 U/L (0-33); Albumin Level 3.1 g/dL (3.5-5.2); Alkaline Phosphatase 248 U/L (35-105); Anion Gap 29.4 (5-19); Aspartate Amino Transferase 28 U/L (0-32); Atypical Lymphs 0.0 % (0-5); Band Neutrophils Absolute 0.3 10^3/cmm (0.0-1.2); Calcium 8.6 mg/dL (8.5-10.5); Carbon Dioxide 11 mmol/L (22-29); Chloride 95 mmol/L (98-107); Creatinine Clr Calc Pharmacy 14.3656; Globulin 4.1 g/dL (1.3-4.6); Glucose 81 mg/dL (65-115); Lipase 22 U/L (13-60); Magnesium 2.3 mg/dL (1.7-2.3); Osmolality Calculated 300 mOsm/kg (285-295); Potassium 3.4 mmol/L (3.5-5.1); Sodium 132 mmol/L (136-145); Total Cells Counted 100 (0-100); Total Protein 7.2 g/dL (6.6-8.7)
[2025-06-10 19:44] LABS: Alcohol Level < 10 mg/dL (0-10)
[2025-06-10 19:45] LABS: Blood Urea Nitrogen 89 mg/dL (6-20); Respiratory Syncytial Virus Ce NEGATIVE (Negative); SARS-CoV-2 PCR NEGATIVE (Negative)
[2025-06-10] MEDS: orphenadrine 30 mg/mL Inj 2 mL IVP (19:50)
--- NOTE | 2025-06-10 20:22 | CTR_ITS ---
PROCEDURE INFORMATION: Exam: CT Right Lower Extremity Without Contrast, Knee Exam date and time: 06/10/2025 8:30 PM Age: 45 years old Clinical indication: Bilateral; Knee pain TECHNIQUE: Imaging protocol: CT of the right lower extremity without contrast was performed. Exam focused on the knee. Radiation optimization: All CT scans at this facility use at least one of these dose optimization techniques: automated exposure control; mA and/or kV adjustment per patient size (includes targeted exams where dose is matched to clinical indication); or iterative reconstruction. COMPARISON: MR knee RT wo con* [id number] 11/02/2024 3:37 PM RADIATION DOSE METRICS: Total DLP (mGy-cm): 440.6 FINDINGS: Bones/joints: Status post tmrqw-lfr-xfkd amputation. No acute displaced fracture or dislocation. Mild erosive changes within distal portion of the stump. Trace suprapatellar joint effusion. Fibula is grossly intact. Soft tissues: Diffuse soft tissue edema with skin thickening distally. No soft tissue gas appreciated. Extensive thickening inferior to the patella with possible organized collection which measures 5.3 x 2.4 cm (4/80). Muscular fatty atrophy. Vasculature: Severe vascular calcifications. CT/CT knee RT wo con* [id number] IMPRESSION: 1. Status post dbkqe-xme-fnda amputation. 2. Extensive soft tissue inflammatory changes with suspected infrapatellar collection which may represent an abscess formation, limited evaluation due to lack of intravenous contrast. 3. Faint erosive changes within distal portion of the tibial stone which may represent component of osteomyelitis.
--- NOTE | 2025-06-10 20:22 | CTR_ITS ---
PROCEDURE INFORMATION: Exam: CT Left Lower Extremity Without Contrast, Knee Exam date and time: 06/10/2025 8:30 PM Age: 45 years old Clinical indication: Bilateral; Knee pain TECHNIQUE: Imaging protocol: CT of the left lower extremity without contrast was performed. Exam focused on the knee. Radiation optimization: All CT scans at this facility use at least one of these dose optimization techniques: automated exposure control; mA and/or kV adjustment per patient size (includes targeted exams where dose is matched to clinical indication); or iterative reconstruction. COMPARISON: MR knee LT wo con* [id number] 11/02/2024 3:00 PM RADIATION DOSE METRICS: Total DLP (mGy-cm): 292.4 FINDINGS: Bones/joints: Status post jzkxu-oem-cikj amputation. Diffuse osteopenia. No fracture. Extensive heterotopic calcifications. Soft tissues: Diffuse soft tissue edema. No contained fluid collection to suggest an abscess formation. No soft tissue gas appreciated. Vasculature: Extensive vascular calcifications. CT/CT knee LT wo con* [id number] IMPRESSION: 1. Status post jvhnd-kgw-yefm amputation with diffuse osteopenia and extensive heterotrophic calcifications. No fracture. 2. Soft tissue edema concerning for cellulitis. There are no definite osseous erosions, however due to extensive heterotrophic calcifications and lack of intravenous contrast evaluation for osteomyelitis is limited. If there is strong concern for osteomyelitis further evaluation with dedicated MRI is recommended.
[2025-06-10] MEDS: cefepime 1,000 mg SDV 1000 MG IVP (20:41)
[2025-06-10] MEDS: HYDROmorphone 0.5 MG/0.5 ML INJ IVP (21:25)
--- NOTE | 2025-06-10 23:46 | PM.HP ---
Providers/Chief Complaint Admitting Physician: Page Ramirez MD--- seen and evaluated before 12 midnight Primary Care Provider: Monika Simpson MD Chief Complaint: NEO leg pain History of Present Illness Cherrie Solomon is a 45 year old female with medical history significant for stage IV kidney disease coming in acute on chronic with complaints of bilateral knee regional pain patient has left AKA and right BKA and the right BKA is cellulitic more so than the left AKA. Patient presents to the emergency room with a fever of 101 ?F patient has a and lives with the family as she told me. Patient was pancultured from blood and urine chest x-ray is negative. Patient is diabetic and uncontrolled diabetes leading to the bilateral amputation of the leg. Patient also has been battling with acute on chronic renal failure and had been seen by Dr. Jacinto ward who had also been reconsuled at this time. Patient creatinine today had gone the highest at 5. In the recent past patient creatinine was 4. Gentle hydration had been given in the ED and this improved creatinine to come down from a 5 to a 4.3 today. Patient has been covered empirically with vancomycin and cefepime. Patient sees nephrology via [facility] and she resides at [facility] Findings of the imaging of the knees she might be wanted to get an MRI of the knees to further define osteomyelitis CT/CT knee RT wo con* [id number] IMPRESSION: 1. Status post lqvcy-eac-khtg amputation. 2. Extensive soft tissue inflammatory changes with suspected infrapatellar collection which may represent an abscess formation, limited evaluation due to lack of intravenous contrast. 3. Faint erosive changes within distal portion of the tibial stone which may represent component of osteomyelitis. Dictated By: Nicole Kern MD Signed By: Nicole Kern MD Signed Date/Time: 06/10/252120 D/ 29 Review of Systems Narrative: System review upon 10 organ reviewed we are significant for renal failure and musculoskeletal issues with bilateral amputee with some sclerosis that could be like an osteomyelitis Medications/Allergies Home Medications ?Medication ?Instructions ?Recorded ?Confirmed ?Last Taken ?Type quetiapine 100 mg tablet 100 mg PO BEDTIME 09/13/24 06/11/25 06/07/25 History naloxone 4 mg/actuation nasal See Rx Instructions .Route .COMPLEX 05/21/25 10/24/25 Unknown History spray (Narcan) pregabalin 75 mg capsule (Lyrica) 75 mg PO BID #60 caps 01/30/25 06/11/25 06/07/25 Rx quetiapine 50 mg tablet 50 mg PO QAM 02/05/25 06/11/25 06/07/25 History metoclopramide HCl 10 mg tablet 5 mg PO QID 03/13/25 06/11/25 06/07/25 History atorvastatin 10 mg tablet 10 mg PO DAILY 04/25/25 06/11/25 06/07/25 History cyclobenzaprine 5 mg tablet 5 mg PO TID PRN Spasms 04/25/25 06/11/25 Unknown History clonidine HCl 0.1 mg tablet 0.1 mg PO TID PRN Hypertension #30 04/28/25 06/11/25 Unknown Rx tabs fluoxetine 20 mg capsule 20 mg PO BEDTIME #30 caps 04/28/25 06/11/25 06/07/25 Rx hydralazine 50 mg tablet 50 mg PO TID #90 tabs 04/28/25 06/11/25 06/07/25 Rx nifedipine 30 mg tablet,extended 60 mg (2 x 30 mg) PO QAM #30 tabs 04/28/25 06/11/25 06/07/25 Rx release 24 hr oxycodone-acetaminophen 7.5 mg-325 1 tab PO Q6H PRN Moderate Pain 06/11/25 06/11/25 Unknown History mg tablet (Scale Score 5-6) Allergies Allergy/AdvReac Type Severity Reaction Status Date / Time morphine Allergy ALGY-Difficulty Verified 09/12/24 20:19 Breathing sulfamethoxazole (From Allergy ADR-Vomitin Verified 09/12/24 20:19 Bactrim) g trimethoprim (From Bactrim) Allergy ADR-Vomitin Verified 09/12/24 20:19 g PFSH Acute PFSH: Medical History Opiate withdrawal Uncontrolled hypertension Dysthymic disorder ALEJANDRO (generalized anxiety disorder) Chronic kidney disease Combative behavior Back pain Acute kidney injury superimposed on CKD Chronic pain Type 1 diabetes mellitus with other skin ulcer Suicide attempt Urinary retention Septic prepatellar bursitis of left knee Hyperglycemia Anemia of chronic disease Insomnia GERD (gastroesophageal reflux disease) ALEJANDRO (generalized anxiety disorder) C. 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 Toe infection PTSD (post-traumatic stress disorder) Gastroparesis (~11/2024) Depression Suicidal ideation Nausea & vomiting Diabetic ophthalmopathy Hypertension Foot osteomyelitis, right Non-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 CKD (chronic kidney disease) stage 2, GFR 60-89 ml/min baseline Cr is around 1.0 Diabetic foot ulcer s/p surgical intervention and eventual amputation Hyperlipidemia Coronary artery disease hx of stenting Diabetic gastroparesis Diabetes mellitus type 1 diagnosed age 15, history of peripheral neuropathy, gastroparesis and nephropathy Surgical History Status post above-knee amputation of left lower extremity Status post below knee amputation of right lower extremity Hx of angioplasty H/O esophagogastroduodenoscopy (12/31/20) Bile reflux gastritis, grade B esophagitis Hx of cholecystectomy History of amputation of right forefoot Below-knee amputation of left lower extremity S/P percutaneous endoscopic gastrostomy (PEG) tube placement H/O exploratory laparotomy x 3 Previous section x 3 S/P coronary artery stent placement x 1 Family History Unknown Diabetes extensive, type II Other Congestive heart failure (CHF) Social History Smoking and tobacco/nicotine status: former use of tobacco/nicotine Quit status (tobacco/nicotine): has quit using Former quit date comment: 15 yrs ago Alcohol intake: former Former alcohol use details: 15 yrs ago Substance/Drug Use: current Substance/Drug use frequency: daily Household members: spouse Marital status: Current occupation: disabled Sexually active: Yes (1, ) Female Reproductive History: Spontaneous abortions: No Vitals/I&O/Wt Last Vital Signs Temp 98.1 F 06/10/25 22:33 Pulse 91 06/10/25 23:00 Resp 16 06/10/25 22:33 BP 162/75 06/10/25 22:33 Pulse Ox 97 10/23/25 23:00 O2 Del Method Room Air 06/10/25 23:00 06/10/25 06/10/25 06/11/25 14:59 22:59 06:59 Intake Total 2250 / 2250 Balance 2250 / 2250 Weight last 48 hrs Weight 68.039 kg Physical Exam Narrative: Patient is pleasant but complains about pain in the bilateral knee HEENT normocephalic atraumatic neck neck is supple cardiovascular heart rate is regular lungs are pretty much clear abdomen soft nontender nondistended unremarkable extremities are intact no edema has good pulses neurology has no focality lab studies lab studies reviewed and noted. Urinary Catheter Management: [place]: Cath Placed During This Visit: yes Urinary Catheter Date of Insertion: 06/10/25 Urinary Catheter Time of Insertion: 20:20 Data 06/11/25 03:49 06/11/25 03:49 Micro: Microbiology 06/10/25 19:05 Blood Culture - Preliminary Blood SPECIMEN COLLECTED 06/10/25 18:30 Blood Culture - Preliminary Blood SPECIMEN COLLECTED A&P Assessment and plan 1. Sepsis: 2. Abnormal TSH: 3. Cellulitis and abscess of right le. Cellulitis of left le. Acidosis, lactic: 6. FIONA (acute kidney injury): 7. Acute kidney injury superimposed on CKD: Plan: #! Fever of Tmax 101 ?F - Admit to stepdown unit - Source of infection most likely the right knee, the right BKA cellulitis with fluctuant skin area - Obtain orthopedics or podiatry was likely to evaluate this area and possibly drain it and send culture This might be an abscess - I have covered with vancomycin and cefepime and - X-ray has shown possible osteomyelitis - Obtain an MRI to classically define this - Patient tells me she crawls on the floor to move around and does have scrapes on the knees good entrance microbes #2 Acute on chronic stage IV kidney - Nephrology be on the case and follow through with this patient - I had advised her to have a local nephrology that going to follow-up placed of [address] to [place] For her better management and follow-ups #3 GI and DVT prophylaxis in place PDMP PDMP Reviewed: Last Reviewed 06/11/25 09:28 by Page Ramirez MD Attestations Medical Necessity Statement*: Patient has infection most likely osteomyelitis with fever and also worsening renal failure and function and will need at least 2 midnights to optimize Coding Level of Care Code Acute Code for Chg Fwd Diagnoses Sepsis A41.9 Abnormal TSH R79.89 Cellulitis and abscess of right leg L03.115; L02.415 Cellulitis of left leg L03.116 Acidosis, lactic E87.20 FIONA (acute kidney injury) N17.9 Acute kidney injury superimposed on CKD N17.9; N18.9 Time Spent (min) 60
[2025-06-11] VITALS (9 sets, daily range): BP systolic 153–206; BP diastolic 72–102; PULSE 91–120; RESP 15–20; TEMP 36.8–38.7; O2SAT 96–100
[2025-06-11] MEDS: HYDROmorphone 0.5 MG/0.5 ML INJ IVP ×5 (01:45→20:13)
[2025-06-11 03:55] LABS: Hematocrit 21.8 % (36-47); Hemoglobin 7.10 g/dL (11.27-16.99); Mean Corpuscular HGB Conc 32.6 g/dL (30-55); Mean Corpuscular Hemoglobin 30.2 pg (27-33); Mean Corpuscular Volume 92.8 fl (85-98); Nucleated Red Blood Cells % 0 %; Platelet Count 216 10^3/cmm (157-399); Red Blood Count 2.35 10^6/uL (3.85-5.65); White Blood Count 10.61 10^3/uL (3.29-11.43)
[2025-06-11 04:20] LABS: Alanine Aminotransferase 22 U/L (0-33); Albumin Level 2.8 g/dL (3.5-5.2); Alkaline Phosphatase 217 U/L (35-105); Anion Gap 22.2 (5-19); Aspartate Amino Transferase 21 U/L (0-32); Blood Urea Nitrogen 77 mg/dL (6-20); Calcium 8.3 mg/dL (8.5-10.5); Carbon Dioxide 14 mmol/L (22-29); Chloride 103 mmol/L (98-107); Creatinine Clr Calc Pharmacy 17.3724; Globulin 3.4 g/dL (1.3-4.6); Glucose 99 mg/dL (65-115); Magnesium 2.1 mg/dL (1.7-2.3); Osmolality Calculated 305 mOsm/kg (285-295); Potassium 3.2 mmol/L (3.5-5.1); Sodium 136 mmol/L (136-145); Total Protein 6.2 g/dL (6.6-8.7)
--- OUTSIDE RECORDS SUMMARY | 2025-06-11 07:15 | XMS_ITS | Encounter Summary ---
Author Organization [facility] Address 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 No answer or vm. Called [facility] and lft vm with medical records to have faxed for upcoming HFU. * Telephone Encounter - Reji Gusman - 04/29/2025 12:13 PM CDT Copied from [facility] #[id number]. 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 Yes Call Notes: Communicated information that is [...] - 04/28/2025 1:34 PM CDT Copied from [facility] #[id number]. Topic: Established Patient Care >> Apr 28, 2025 1:30 PM Mariann De Anda wrote: Is the patient established with a [facility] provider? Yes, select appropriate option in Discharge Facility SmartList Caller Name: [facility] Callback Number: Telephone Information: - call patient Call Notes: [facility] d/c 04/28 suicidal ideation Patient is High Risk Where was the patient discharged from? Hospital Is there availability to schedule the patient within 5 calendar days of discharge? Yes, but patientwants to schedule an in person appointment outside 5 day guideline documented in this encounter Plan of Treatment Upcoming Encounters Date Type Department Care Team (Late st Contact Info) Description 07/02/2025 11:00 AM CONCRETE BATCHING PLANT OPERATOR Office Visit [address] [phone] Monika Simpson MD [address] [place] [phone] documented as of this encounter Visit Diagnoses Not on filedocumented in this encounter Additional Health Concerns Assessment Noted Time PHQ-9 Depression Total Score: 2 03/12/20 24 8:33 AM CDT documented as of this encounter Care Teams Survey Engineer Relationship Specialty Start Date End Date Monika Simpson MD [address] [place] [phone] PCP - General Family Practice 03/12/24 documented as of this encounter
--- OUTSIDE RECORDS SUMMARY | 2025-06-11 07:16 | XMS_ITS | Encounter Summary ---
Author Organization [facility] Address 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 Records in media. * Telephone Encounter - Lelia Alvarez - 03/11/2025 5:31 PM CDT Left V.M. for patient to call office and schedule [facility] HFU appointment for week of March 15-March 19. * Telephone Encounter - Lelia Alvarez - 03/11/2025 5:27 PM CDT Give her first available next week, per Dr. Simpson * Telephone Encounter - Lelia Alvarez - 03/10/2025 3:27 PM CDT Sent Live [employer] message to Dr. Simpson and Anai Castellanos to see if able to do HFU on Thursday 03/15 * Telephone Encounter - Tish Baum - 03/10/2025 1:34 PM CDT Copied from [facility] #[id number]. Topic: CPA Information Request - Appointment/Location Information [...] like to also receive a link in ActualMeds to view the details for the upcoming appointments. Would caller like ActualMeds message with link to appointment details? No Patient Access Instructions 1. Link appointment in attachment section below. 2. Select Resolve Reason and Click Close CRM. documented in this encounter Plan of Treatment Upcoming Encounters Date Type Department Care Team (Late st Contact Info) Description 07/02/2025 11:00 AM PLATFORM ATTENDANT Office Visit [address] [phone] Monika Simpson MD [address] [place] [phone] documented as of this encounter Visit Diagnoses Not on filedocumented in this encounter Additional Health Concerns Assessment Noted Time PHQ-9 Depression Total Score: 2 03/12/20 24 8:33 AM CDT documented as of this encounter Care Teams Claim Manager Relationship Specialty Start Date End Date Monika Simpson MD [address] [place] [phone] PCP - General Family Practice 03/12/24 documented as of this encounter
--- OUTSIDE RECORDS SUMMARY | 2025-06-11 07:16 | XMS_ITS | Clinical Summary ---
Author Organization [facility] Address [address] [place] [address] Phone Care Team Providers Care Dramatic Director Name Role Phone Manjarrez Imelda Trinh [facility] Primary Care Provider [phone] Allergies Active Allergy Reactions Criticality Noted Date [...] Recorded Patient Health Questionnaire-2 Score 2 11/08/2023 [facility] - Mental Health Answer Date Recorde d [...] patient's age to complete this topic Insurance [facility] Care Teams Dramatic Director Relationship Specialty Start Date End Date Imelda Manjarrez FNP [id number] [facility] [place] [address] PCP - General Family Medicine 11/08/23
--- OUTSIDE RECORDS SUMMARY | 2025-06-11 07:17 | XMS_ITS | Encounter Summary ---
Author Organization [facility] Address [address] [place] [address] Care Team Providers Care Power Hair Clipper Name Role Phone Kentrell Herring MD Primary [...] PELVIS COMPLETE Awilda Trotter NP [address] [place] [address] Phone: tel: fax: [facility] Ultrasound [address] [place] [address] Phone: tel: fax: Referral ID Status Reason Start Date Expiration Date V isits Requested Visits Authorized [id number] Closed F [facility] TO SCHEDULE (SGF) 05/28/2012 05/28/2013 1 1 Encounter Details Date Type Department Care Team (Latest Contact Info) Description 05/28/2012 Ancillary Orders [facility] Pre-Registration [facility] [place] CALL TO MAKE APPOINTMENT ONLY [address] [place] [address] Awilda Trotter NP [address] [place] [phone] Unspecified symptom associated with female genital organs; [...] on file 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
--- OUTSIDE RECORDS SUMMARY | 2025-06-11 07:17 | XMS_ITS | Clinical Summary ---
Author Organization [facility] Facility Address [address] [place] [address] Care Team Providers Care Pillow Filler Name Role Phone Kentrell Herring MD Primary Care Provider [phone] Social History Tobacco Use Types Packs/Day Years [...] 50+ Years Discontinued 9 Insurance Medicaid [place] ([id number]) Care Teams Pillow Filler Relationship Specialty Start Date End Date Kentrell Herring MD [address] [place] [phone] PCP - General Family Medicine 09/29/18
--- OUTSIDE RECORDS SUMMARY | 2025-06-11 07:17 | XMS_ITS | Clinical Summary ---
Author Organization [facility] Address [address] [place] [address] Care Team Providers Care Bike Assembler Name Role Phone Monika Simpson MD Primary Care Provider [phone] Allergies Active Allergy Reactions Criticality Noted Date [...] daily. 4 Active naloxone (NARCAN) 4 mg/spray [place], Non-Aerosol EMERGENCY USE ONLY: Administer 1 spray [...] osteoarthritis 12/10/2023 Precordial chest pain 11/16/2019 Old [place] (myocardial infarction) 11/11/2019 Takotsubo cardiomyopathy 11/11/2019 Hyponatremia 07/20/2019 Hypercalcemia 07/09/2019 Restless leg syndrome 05/02/2019 Normocytic anemia 05/02/2019 Hypomagnesemia 03/24/2019 Sacral decubitus ulcer 03/04/2019 Weight loss 03/04/2019 Dyslipidemia 03/03/2019 ASHD (arteriosclerotic heart disease) 01/19/2019 Esophagitis, [place] grade C 10/03/2018 Hx of migraine headaches 09/27/2018 Essential hypertension 09/27/2018 Incidental pulmonary nodule, > 3mm and < 8mm rt lung 09/20/2018 Thrombocytosis 09/19/2018 Elevated alkaline phosphatase level 09/19/2018 Noncompliance with medication regimen 07/04/2018 Diabetic polyneuropathy asso ciated with type 2 diabetes mellitus 12/30/2017 H/O supraventricular tachycardia 12/18/2017 Overview (12/15/2020): [place] to be caffeine induced Hypokalemia Diabetic gastroparesis [...] (12/16/2020): Added automatically from request for surgery [id number] History of below-knee amputa tion of left [...] perceptible pit (no findings) (11/11/19 1430) Hand Cio: Unable to assess(s/p cath ) (11/11/19 1430) [...] STL ABSTRACTION Provider, Abstract 05/07/2025 Results Follow-Up [address] [address] Monika Simpson MD BASIC METABOLIC PANEL 05/06/2025 11:20 AM CDT Office Visit [address] [address] Monika Simpson MD Suicidal ideation (Primary Dx); Hordeolum externum of left upper eyelid; Mass of soft tissue of face; Acute renal failure, unspecified acute renal failure type; Benign hypertension with stage 3b chronic kidney disease (CMS/HCC); Chronic bilateral low back pain without sciatica 05/03/2025 Orders Only [id number] [place] [phone] Provider, Abstract 05/03/[address] [address] Monika Simpson MD 04/29/[address] [place] [address] Monika Simpson MD 04/29/2025 Orders Only [id number] [place] [address] Provider, Abstract 04/28/[address] [address] Monika Simpson MD Hospital Follow Up; Patient Communication 04/14/2025 External Device Data STL ABSTRACTION Provider, Abstract 04/13/2025 External Device Data STL ABSTRACTION Provider, Abstract 04/07/2025 External Device Data STL ABSTRACTION Provider, Abstract 03/29/2025 11:20 AM CDT Office Visit [address] [address] Monika Simpson MD Diabetic gastroparesis (CMS/HCC) (Primary Dx); Acute kidney injury superimposed on chronic kidney disease; Type 2 diabetes mellitus with other specified complication, without long-term current use of insulin (CMS/HCC); Benign hypertension with stage 3b chronic kidney disease (CMS/HCC); Chronic bilateral low back pain without sciatica 03/22/[address] [address] Monika Simpson MD Bipolar disorder, current episode mixed, mild (CMS/HCC) 03/11/2025 Orders Only [facility] [address] [place] [address] Provider, Abstract 03/11/[address] [address] Monika Simpson MD from Last 3 Months Immunizations Immunization Administration [...] on file Legal Sex Female 2:06 AM BROADCAST CORRESPONDENT Gender Identity Not on file Sexual Orientation [...] st Contact Info) Description 07/02/2025 11:00 AM BROADCAST CORRESPONDENT Office Visit [address] [phone] Monika Simpson MD [address] [place] [address] Health Maintenance Due Date Last Done [...] 10/22/2031 10/21/2021 Medical Devices Implanted Type Area Heel Washer Stringing Machine Operator Device Identifier Shelf Expiration Date Model / Serial / Lot Cage T1 Centerpiece Stratosphere 13mm Sz D [id number] - [id number] Implanted:Qty: 1 on 12/05/2024 by Mike Diaz MD at [facility] Cage N/A: Neck [employer]- SOFAMOR DANEK 02/21/2026 [id number] / / [id number] Powerline-03/06 Implanted:Qty: 1 on 03/06/2019 by Ovi Cohen MD Catheter Right: Chest [id number] 03/18/2021 [id number] / / [id number] 30cm Gj Feeding Tube-10/15/2018 Implanted:Qty: 1 on 10/15/2018 by Ovi Cohen MD Feeding Device Jejunum 03/19/2020 0250-18- 30 / / [id number] Hemostatic Surgicel 3x4in 1942 - [id number] Implanted:06/20 by Pelon Rose DPM (Quantity not on file) Hemostatic Left: Foot [employer]- [employer] 02/15/20231942 / / [id number] Hemostatic Surgifoam 1gm 1977 - [id number] Implanted:Qty: 1 on 12/05/2024 by Mike Diaz MD at [facility] Hemostatic N/A: Neck [employer]- [employer] 09/03/20261977 [id number] Hemostatic Surgifoam 1gm 1977 - [id number] Implanted:Qty: 1 on 12/05/2024 by Mike Diaz MD at [facility] Hemostatic N/A: Neck J[employer]- [employer] 09/03/20261977 618781 Hemostatic Surgifoam 1gm 1977 - [id number] Implanted:Qty: 1 on 12/05/2024 by Mike Diaz MD at [facility] Hemostatic N/A: Neck [employer]- [employer] 09/03/20261977 [id number] Plate [place] Vision Elite 52.5mm 7370279 - [id number] Implanted:Qty: 1 on 12/05/2024 by Mike Diaz MD at [facility] Plate N/A: Neck [employer]IC [facility] [id number] / / Emiliano Std 3.5b262hd 4328084 - [id number] Implanted:Qty: 1 on 12/05/2024 by Mike Diaz MD at [facility] Emiliano N/A: Neck [employer]- SOF[employer]ANEK [id number] / / Connector Infinity Oc Lat Opn 10mm 1503818 - [id number] Implanted:Qty: 1 on 12/05/2024 by Mike Diaz MD at [facility] Emiliano N/A: Neck [employer]- SOFAMOR DANEK 03/24/2026 [id number] / / [id number] Connector Infinity Oc Lat Opn 10mm [id number] - [id number] Implanted:Qty: 1 on 12/05/2024 by Mike Diaz MD at [facility] Emiliano N/A: Neck [employer]- SOFAMOR DANEK 03/24/2026 [id number] / / [id number] Screw Stlnts Sd Va 4.0x14mm [id number] - [id number] Implanted:Qty: 1 on 12/05/2024 by Mike Diaz MD at [facility] Screw N/A: Neck [employer] [id number] / / Screw Stlnts Sd Va 4.0x14mm 9038910 - [id number] Implanted:Qty: 1 on 12/05/2024 by Mike Diaz MD at [facility] Screw N/A: Neck [employer] [id number] / / Screw Infinity 3.5x12mm Mas 1569957 - [id number] Implanted:Qty: 1 on 12/05/2024 by Mike Diaz MD at [facility] Screw N/A: Neck [employer] [id number] / / Screw Infinity 3.5x12mm Mas 2151497 - [id number] Implanted:Qty: 1 on 12/05/2024 by Mike Diaz MD at [facility] Screw N/A: Neck [employer] [id number] / / Screw Infinity 3.5x12mm Mas 0401254 - [id number] Implanted:Qty: 1 on 12/05/2024 by Mike Diaz MD at [facility] Screw N/A: Neck [employer] [id number] / / Screw Infinity 3.5x12mm Mas 8861529 - [id number] Implanted:Qty: 1 on 12/05/2024 by Mike Diaz MD at [facility] Screw N/A: Neck [employer] [id number] / / Screw Infinity 3.5x12mm Mas 6331399 - [id number] Implanted:Qty: 1 on 12/05/2024 by Mike Diaz MD at [facility] Screw N/A: Neck [employer] [id number] / / Screw Infinity 3.5x12mm Mas 6720266 - [id number] Implanted:Qty: 1 on 12/05/2024 by Mike Diaz MD at [facility] Screw N/A: Neck [employer]ANEK [id number] / / Set Screw Infinity Oc M6 8915688 - [id number] Implanted:Qty: 1 on 12/05/2024 by Mike Diaz MD at [facility] Screw N/A: Neck [employer] SOF[employer]ANEK 9240054 / / Set Screw Infinity Oc M6 4897687 - [id number] Implanted:Qty: 1 on 12/05/2024 by Mike Diaz MD at [facility] Screw N/A: Neck [employer]ANEK 1397868 / / Set Screw Infinity Oc M6 4167496 - [id number] Implanted:Qty: 1 on 12/05/2024 by Mike Diaz MD at [facility] Screw N/A: Neck [employer]K [id number] / / Set Screw Infinity Oc M6 9649838 - [id number] Implanted:Qty: 1 on 12/05/2024 by Mike Diaz MD at [facility] Screw N/A: Neck [employer] [id number] / / Set Screw Infinity Oc M6 7389150 - [id number] Implanted:Qty: 1 on 12/05/2024 by Mike Diaz MD at [facility] Screw N/A: Neck [employer]FAM[employer] 7372470 / / Set Screw Infinity Oc M6 1213235 - [id number] Implanted:Qty: 1 on 12/05/2024 by Mike Diaz MD at [facility] Screw N/A: Neck [employer] SOFAMOR [employer]ANEK 6151898 / / Set Screw Infinity Oc M6 9908275 - [id number] Implanted:Qty: 1 on 12/05/2024 by Mike Diaz MD at [facility] Screw N/A: Neck [employer] SOFAMOR DANEK [id number] / / Set Screw Infinity Oc M6 7619778 - [id number] Implanted:Qty: 1 on 12/05/2024 by Mike Diaz MD at [facility] Screw N/A: Neck [employer]- SOFAMOR DANEK [id number] / / Set Screw Infinity Oc M6 8325891 - [id number] Implanted:Qty: 1 on 12/05/2024 by Mike Diaz MD at [facility] Screw N/A: Neck [employer] SOFAMOR DANEK [id number] / / Set Screw Infinity Oc M6 6970033 - [id number] Implanted:Qty: 1 on 12/05/2024 by Mike Diaz MD at [facility] Screw N/A: Neck [employer] SOFAM[employer]ANEK [id number] / / Set Screw Infinity Oc M6 6298237 - [id number] Implanted:Qty: 1 on 12/05/2024 by Mike Diaz MD at [facility] Screw N/A: Neck [employer] SOFAM[employer]ANEK [id number] / / Set Screw Infinity Oc M6 1183463 - [id number] Implanted:Qty: 1 on 12/05/2024 by Mike Diaz MD at [facility] Screw N/A: Neck [employer]- SOFAM[employer]ANEK [id number] / / Screw Infinity 4.5x24mm Mas 3651513 - [id number] Implanted:Qty: 1 on 12/05/2024 by Mike Diaz MD at [facility] Screw N/A: Neck [employer]- SOFAMOR DANEK 03/24/2026 [id number] / / 7894 Screw Infinity 4.5x24mm Mas 2067898 - [id number] Implanted:Qty: 1 on 12/05/2024 by Mike Diaz MD at [facility] Screw N/A: Neck [employer]- SOFAMOR DANEK 03/24/2026 [id number] / / 7894 Screw Infinity 4.5x24mm Mas [id number] - [id number] Implanted:Qty: 1 on 12/05/2024 by Mike Diaz MD at [facility] Screw N/A: Neck [employer]- SOFAMOR DANEK 03/24/2026 [id number] / / 7894 Screw Infinity 4.5x24mm Mas [id number] - [id number] Implanted:Qty: 1 on 12/05/2024 by Mike Diaz MD at [facility] Screw N/A: Neck [employer]- SOFAMOR DANEK 03/24/2026 [id number] / / 7894 Screw Stlnts Sd Va 4.0x14mm [id number] - [id number] Implanted:Qty: 1 on 12/05/2024 by Mike Diaz MD at [facility] Screw N/A: Neck [employer]- SOFAMOR DANEK [id number] / / Screw Stlnts Sd Va 4.0x14mm 9338920 - [id number] Implanted:Qty: 1 on 12/05/2024 by Mike Diaz MD at [facility] Screw N/A: Neck [employer]- SOFAM[employer]ANEK [id number] / / Paste Bone Dbm Plus 1ml [id number] - [id number] Implanted:Qty: 1 on 12/05/2024 by Mike Diaz MD at [facility] Tissue N/A: Neck [employer] - SPINALGRAFT 04/15/2026 [id number] / [id number] / Paste Bone Dbm Plus 5ml [id number] - [id number] Implanted:Qty: 1 on 12/05/2024 by Mike Diaz MD at [facility] Tissue N/A: Neck [employer] - [employer]AL[employer] 06/19/2026 [id number] / [id number] / Paste Bone Dbm Plus 5ml [id number] - [id number] Implanted:Qty: 1 on 12/05/2024 by Mike Diaz MD at [facility] Tissue N/A: Neck [employer] - SPINALG[employer] 04/02/2026 [id number] / [id number] / Explanted Type Area Heel Washer Stringing Machine Operator Device Identifier Shelf Expiration Date Model / Serial / Lot 16fr 30cm Richy Gastro-Jejuna l Feeding Tube- 9 Implanted:Qty : 1 on 10/08/2018 by Luis Alberto Fields MD Explanted:Qty : 1 on 10/15/2018 by Ovi Cohen MD Feeding Device N/A: Abdomen 01/18/2020 / / [id number] Set Screw Infinity Oc M6 [id number] - [id number] Explanted:Qty : 1 on 12/05/2024 by Mike Diaz MD at [facility] Screw N/A: Neck [employer]- SOF[employer] [id number] / / Procedures Procedure Name Priority Date/Time [...] complication, without long-term current use of insulin ([facility]) COLONOSCOPY REPORT 06/26/2019 4: 22 PM BROADCAST CORRESPONDENT from Last 3 Months or Most Recently [...] [facility] Comment: Test Performed at: [facility] [address] [place] [address] Diego Lacy MD Blood 05/06/2025 11:5 1 AM CDT 05/06/2025 11:51 AM CDT us Monika Simpson MD CHEMISTRY ORDERABLES Final Result [facility] [phone] [facility] [address] [facility] [address] * COMPREHENSIVE METABOLIC PANEL (04/28/2025 10:49 AM CDT) Only the most recent of2 resultswithin the time period is included. Blood Abstract Provider CHEMISTRY ORDERABLES Final Res ult * LIPID PANEL (04/25/2025) ABSTRACTED CHOLESTEROL 156 ABSTRACTED TRIGLYCERIDE 36 ABSTRACTED HDL 91 ABSTRACTED LDL CALCULATED 58 Blood 04/25/2025 us Abstract Provider CHEMISTRY ORDERABLES Final Res ult * HEMOGLOBIN A1C (04/24/2025) ABSTRACTED HGB A1C 4.7 % Blood 04/24/2025 [...] within a diagnostic category. Test Performed at: [facility] [address] [address] Diego Lacy MD Urine URINE SPECIMEN OBTAINED BY CLEAN CATCH PROCEDURE / Unknown 03/29/2025 11:28 AM CDT 03/30/2025 2:39 AM CDT us Monika Simpson MD URINE ORDERABLES Final Res ult [facility] [phone] [facility] [address] [address] * COLONOSCOPY REPORT (06/26/2019 4:22 PM BROADCAST CORRESPONDENT) Adryan Ibarra MD GI PROCEDURE ORDERABL ES Final Result from Last 3 Months or Most Recently Relevant to Health Maintenance Insurance [place] * Guarantor: MELISSA TATE Account Type Relation to Patient Date of Phone Billing Address Personal/Family [address] [place] [address] RX INFOCROSSING Medicaid [place] Advance Directives For more information, please contact: [phone] * Full Code (Latest Code Status on [...] 11:29 PM 02/11/2024 7:10 PM Care Teams Bike Assembler Relationship Specialty Start Date End Date Monika Simpson MD [address] [place] [phone] PCP - General Family Practice 03/12/24
--- OUTSIDE RECORDS SUMMARY | 2025-06-11 07:18 | XMS_ITS | Encounter Summary ---
Author Organization [facility] Address [address] [place] [address] Care Team Providers Care Student Services Vice President Name Role Phone Kentrell Herring MD Primary Care Provider + Encounter Details Date Type Department Care Team (Latest Contact Info) Description 04/10/2003 Outpatient Historical [facility], [facility] MANIF NEC ADULT ([facility]) (Primary Dx) Social History Tobacco Use Types Packs/Day Years Used Date Smoking Tobacco: Never Assessed Comments Unknown Sex and Gender Information Value Date Recorded Sex Assigned at Not on file Legal Sex Female 3:09 AM 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
--- OUTSIDE RECORDS SUMMARY | 2025-06-11 07:18 | XMS_ITS | Encounter Summary ---
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
--- OUTSIDE RECORDS SUMMARY | 2025-06-11 07:18 | XMS_ITS | Encounter Summary ---
Author Organization [facility] Address [address] [place] [address] Care Team Providers Care Student Driving Instructor Name Role Phone Kentrell Herring MD Primary Care Provider + Encounter Details Date Type Department Care Team (Late st Contact Info) Description 12/01/2007 Outpatient Historical [facility] Pepe Jr., Charles Clancy MD [address] [place] [phone] Social History Tobacco Use Types Packs/Day Years Used Date Smoking Tobacco: Never Assessed Comments Unknown Sex and Gender Information Value Date Recorded Sex Assigned at Not on file Legal Sex Female 3:09 AM EXCHANGE OPERATOR Gender Identity Not on file Sexual Orientation Not on file documented as of this encounter Plan of Treatment Not on file documented as of this encounter Visit Diagnoses Not on filedocumented in this encounter Care Teams Student Driving Instructor Relationship Specialty Start Date End Date Kentrell Herring MD [address] [place] [address] PCP - General Family Practice 09/19/18 documented as of this encounter
--- OUTSIDE RECORDS SUMMARY | 2025-06-11 07:18 | XMS_ITS | Encounter Summary ---
Author Organization [facility] Address [address] [place] [address] Care Team Providers Care Gravel Hauler Name Role Phone Kentrell Herring MD Primary Care Provider + Encounter Details Date Type Department Care Team (Late st Contact Info) Description 11/27/2007 Emergency [facility] Emergency Department [address] [place] [address] Ed, Physician NO ADDRESS ON FILE Kelly Pereira MD [address] [place] [phone] Social History Tobacco Use Types Packs/Day Years Used Date Smoking Tobacco: Never Assessed Comments Unknown Sex and Gender Information Value Date Recorded Sex Assigned at Not on file Legal Sex Female 3:09 AM CHEMICAL [employer]PERATIONS [employer] TRAINING Gender Identity Not on file Sexual Orientation [...] ORDERABL ES Final Result Performing Organization Address City/State/[facility] Co de Phone Number INTERFACE SYSTEM Refer to clinic/hospital department * (ABNORMAL) URINALYSIS MICROSCOPY ONLY (11/27/2007 3:20 PM CDT) HYALINE CAST None Seen 0 - 2 [facility] WBC URINE 20-30 [facility] BACTERIA UA Moderate(A ) None Seen [facility] RBC UA 0-2 0 - 2 [facility] Urine specimen (specimen) 11/27/2007 3:20 PM CDT 11/27/2007 3:[address] [facility] - 11/27/2007 3:46 PM CDT Microscopic ordered by policy Kelly Pereira MD URINE ORDERABLES Final Result Performing Organization Address City/[facility] de Phone Number [facility] [address] [place] [address] * (ABNORMAL) URINALYSIS (11/27/2007 3:20 PM CDT) COLOR UA Yellow Straw [facility] SPECIFIC GRAVITY UA 1.025 <=1.005 [facility] GLUCOSE UA 500 mg/dl(A) NEGATIVE [facility] PH UA 5.0 5.0 - 9.0 [facility] BILIRUBIN UA NEGATIVE NEGATIVE [facility] NITRITE UA NEGATIVE NEGATIVE [facility] KETONES UA >=80 mg/dl(A) NEGATIVE [facility] MICRO EXAM Yes(A) No [facility] LEUKOCYTE ESTERASE UA Trace(A) NEGATIVE [facility] PROTEIN UA Trace(A) NEGATIVE [facility] BLOOD UA Trace(A) NEGATIVE [facility] CLARITY UA Cloudy(A) Clear [facility] UROBILINOGEN UA 0.[address] [facility] Urine specimen (specimen) 11/27/2007 3:20 PM CDT 11/27/2007 3:20 PM CDT us Kelly Pereira MD URINE ORDERABLES Final Result Performing Organization Address [facility] de Phone Number [facility] [address] [place] [address] * (ABNORMAL) POC GLUCOSE (11/27/2007 3:18 PM CDT) GLUCOSE POC 317(H) 60 - 100 mg/dL [facility] Venous blood specimen (specimen) 11/27/2007 3:18 PM CDT 11/28/2007 10:57 AM CDT us Kelly Pereira MD POINT OF CARE TESTING Final Res ult Performing Organization Address [facility] Co de Phone Number [facility] [address] [place] [address] * (ABNORMAL) POC GLUCOSE (11/27/2007 1:21 PM CDT) GLUCOSE POC 293(H) 60 - 100 mg/dL [facility] Venous blood specimen (specimen) 11/27/2007 1:21 PM CDT 11/28/2007 10:57 AM CDT Kelly Pereira MD POINT OF CARE TESTING Final Res ult Performing Organization Address [facility] de Phone Number [facility] [address] [place] [address] * (ABNORMAL) URINALYSIS MICROSCOPY ONLY (11/27/2007 11:22 AM CDT) Pathologist [facility] WBC URINE 11-15(A) 0 - 2 [facility] BACTERIA UA Small(A) None Seen [facility] RBC UA 0-2 0 - 2 [facility] HYALINE CAST None Seen 0 - 2 [facility] Urine specimen (specimen) 11/27/2007 11:22 AM CDT 11/27/2007 11:[address] [facility] - 11/27/2007 11:36 AM CDT Microscopic ordered by policy Kelly Pereira MD URINE ORDERABLES Final Result Performing Organization Address [facility] de Phone Number [facility] [address] [place] [address] * (ABNORMAL) URINALYSIS (11/27/2007 11:22 AM CDT) PH UA 5.5 5.0 - 9.0 [facility] BILIRUBIN UA NEGATIVE NEGATIVE [facility] LEUKOCYTE ESTERASE UA Trace(A) NEGATIVE [facility] MICRO EXAM Yes(A) No [facility] KETONES UA >=80 mg/dl(A) NEGATIVE [facility] COLOR UA Yellow Straw [facility] PROTEIN UA 30 mg/dl(A) NEGATIVE [facility] BLOOD UA Trace(A) NEGATIVE [facility] NITRITE UA NEGATIVE NEGATIVE [facility] UROBILINOGEN UA 0.[address] [facility] CLARITY UA SL CLOUDY Clear [facility] GLUCOSE UA >=1000 mg/dl(A) NEGATIVE [facility] SPECIFIC GRAVITY UA 1.020 <=1.005 [facility] Urine specimen (specimen) 11/27/2007 11:22 AM CDT 11/27/2007 11:25 AM CDT Kelly Pereira MD URINE ORDERABLES Final Result Performing Organization Address [facility] Phone Number [facility] [address] [place] [address] * TSH (11/27/2007 10:09 AM CDT) TSH 0.490 0.350 - 5.500 uIU/ml [facility] Blood specimen (specimen) 11/27/2007 10:09 AM CDT 11/27/2007 10:13 AM CDT Kelly Pereira MD CHEMISTRY ORDERABLES Final Resu lt Performing Organization Address [facility] Phone Number [facility] [address] [place] [address] * (ABNORMAL) COMPREHENSIVE METABOLIC PANEL (11/27/2007 10:09 AM CDT) CREATININE 0.6(L) 0.7 - 1.2 mg/dL [facility] CALCIUM 9.5 8.4 - 10.5 mg/dL [facility] ALT 24 4 - 36 IU/L [facility] OSMOLALITY, CALCULATED 289 275 - 295 mOsm/Kg [facility] GLUCOSE 333(H) 70 - 110 mg/dL [facility] CHLORIDE 101 95 - 110 mEq/L [facility] ALKALINE PHOSPHATASE 100 25 - 100 U/L [facility] ALBUMIN/GLOBULIN RATIO 1.3 1.0 - 2.3 [facility] SODIUM 134(L) 136 - 145 mEq/L [facility] TOTAL PROTEIN 7.9 6.3 - 8.2 g/dL [facility] BILIRUBIN TOTAL 0.4 0.3 - 1.2 mg/dL [facility] BUN 12 7 - 17 mg/dL [facility] CO2 17(L) 22 - 32 mmol/l [facility] ANION GAP 20 9 - 20 mEq/L [facility] AST 21 8 - 33 U/L [facility] ALBUMIN 4.4 3.5 - 5.0 g/dL [facility] POTASSIUM 3.8 3.5 - 5.0 mEq/L [facility] GLOBULIN (CALC) 3.5 2.4 - 3.9 g/dL [facility] Blood specimen (specimen) 11/27/2007 10:09 AM CDT 11/27/2007 10:13 AM CDT us Kelly Pereira MD CHEMISTRY ORDERABLES Final Resu lt [facility] [address] [place] [address] * (ABNORMAL) CBC WITH DIFFERENTIAL (11/27/2007 10:09 AM CDT) NEUTROPHIL ABSOLUTE 7.7 2.0 - 8.0 K/ul [facility] NEUTROPHILS 81.1(H) 42.2 - 75.2 % [facility] HEMATOCRIT 43.8 36.0 - 46.0 % [facility] MCH 26.9(L) 27.0 - 34.[address] [facility] EOSINOPHILS 0.6 0.0 - 7.0 % [facility] PLATELETS 360 140 - 440 K/ul [facility] EOSINOPHIL ABSOLUTE 0.1 0.0 - 0.7 K/ul [facility] RBC 5.50(H) 4.20 - 5.40 Mil/ul [facility] LYMPHOCYTES 14.1(L) 24.0 - 44.0 % [facility] MCHC 33.8 30.0 - 35.0 g/dL [facility] LYMPHOCYTE ABSOLUTE 1.3 1.2 - 4.0 K/ul [facility] MPV 8.7(L) 8.9 - 12.[address] [facility] BASOPHILS ABSOLUTE 0.0 0.0 - 0.2 K/ul [facility] BASOPHILS 0.3 0.0 - 1.0 % [facility] HEMOGLOBIN 14.8 12.0 - 16.0 g/dL [facility] RDW 13.5 11.0 - 14.5 % [facility] MONOCYTE ABSOLUTE 0.4 0.1 - 0.6 K/ul [facility] MONOCYTES 3.9 2.0 - 10.0 % [facility] WBC 9.4 4.5 - 11.0 K/ul [facility] MCV 79.6(L) 84.0 - 103.[address] [facility] Blood specimen (specimen) 11/27/2007 10:09 AM CDT 11/27/2007 10:13 AM CDT Kelly Pereira MD HEMATOLOGY ORDERABLES Final Res ult Performing Organization Address City/[facility] Phone Number [facility] [address] [place] [address] * ETHANOL (11/27/2007 10:09 AM CDT) ETHANOL <10 <=10 mg/dL [facility] ETHANOL % <0.010 <=0.010 % [facility] Blood specimen (specimen) 11/27/2007 10:09 AM CDT 11/27/2007 10:13 AM CDT Kelly Pereira MD CHEMISTRY ORDERABLES Final Resu lt [facility] [address] [place] [address] documented in this encounter Visit Diagnoses Not on filedocumented in this encounter Care Teams Gravel Hauler Relationship Specialty Start Date End Date Kentrell Herring MD [address] [place] [address] PCP - General Family Practice 09/19/18 documented as of this encounter
--- OUTSIDE RECORDS SUMMARY | 2025-06-11 07:19 | XMS_ITS | Encounter Summary ---
Author Organization [facility] Address [address] [place] [address] Care Team Providers Care Production Painter Name Role Phone Kentrell Herring MD Primary Care Provider + Encounter Details Date Type Department Care Team (Late st Contact Info) Description 11/27/2007 Outpatient Historical [facility] Aman Allen MD [address] [place] [address] Charles Cantu Jr., MD [address] [place] [address] Social History Tobacco Use Types Packs/Day Years Used Date Smoking Tobacco: Never Assessed Comments Unknown Sex and Gender Information Value Date Recorded Sex Assigned at Not on file Legal Sex Female 3:09 AM KEYSMITH Gender Identity Not on file Sexual Orientation [...] AM CDT) HEPATITIS C AB Negative Negative [facility] Comment: HCV antibody testing is performed [...] ORDERABLES Final Resu lt Performing Organization Address [facility] Phone Number [facility] [address] [place] [address] * HEPATITIS B SURFACE ANTIGEN (11/27/2007 8:12 AM CDT) HEPATITIS B SURFACE AG Negative Negative [facility] Blood specimen (specimen) 11/27/2007 8:12 AM CDT 11/27/2007 8:12 AM CDT Aman Allen MD CHEMISTRY ORDERABLES Final Resu lt Performing Organization Address [facility] Phone Number [facility] [address] [place] [address] * RPR (11/27/2007 8:12 AM CDT) Pathologist [facility] RPR Non-Reactiv e Non-Reacti ve [facility] Blood specimen (specimen) 11/27/2007 8:12 AM CDT 11/27/2007 8:12 AM CDT us Aman Allen MD CHEMISTRY ORDERABLES Final Resu lt Performing Organization Address [facility] Phone Number [facility] [address] [place] [address] * HCG QUANTITATIVE, BLOOD (11/27/2007 8:00 AM CDT) CHORIONIC GONADOTROPIN, TOTAL <2.0 0.0 - 10.0 mlU/ML [facility] Comment: Total HCG levels between 10 mIU/mL and 25 mIU/mL may be indicative of early but need to be correlated with other clinical findings. HCG ranges during normal , as reported by the classics professor, are summarized as follows: Gestational Age Expected [...] Allen MD CHEMISTRY ORDERABLES Final Resu lt [facility] [address] [place] [address] * DRUG SCREEN, URINE (11/27/2007 7:12 AM CDT) OPIATE QUAL, URINE Drug Negative Drug Negative [facility] PCP QUAL, URINE Drug Negative Drug Negative [facility] COCAINE QUAL URINE Drug Negative Drug Negative [facility] CANNABINOIDS QUAL, URINE Drug Negative Drug Negative [facility] AMPHETAMINE QUAL, URINE Drug Negative Drug Negative [facility] Comment: All components of [...] BENZODIAZEPINE QUAL, URINE Drug Negative Drug Negative [facility] BARBITURATE QUAL, URINE Drug Negative Drug Negative [facility] 11/27/2007 7:12 AM CDT 11/27/2007 7:12 AM CDT us Aman Allen MD URINE ORDERABLES Final Result Performing Organization Address City/State/[facility] Co de Phone Number [facility] [address] [place] [address] documented in this encounter Visit Diagnoses Not on filedocumented in this encounter Care Teams Production Painter Relationship Specialty Start Date End Date Kentrell Herring MD [address] [place] [address] PCP - General Family Practice 09/19/18 documented as of this encounter
--- OUTSIDE RECORDS SUMMARY | 2025-06-11 07:19 | XMS_ITS | Clinical Summary ---
Author Organization [facility] Address [address] [place] [address] Care Team Providers Care Arc Trimmer Name Role Phone Kentrell Herring MD Primary [...] . 100 Each 3 07/31/2019 5:32 PM THROAT CUTTER 9 Active insulin lispro (HumaLOG) 100 unit/mL [...] units 10 mL 3 07/31/2019 5:32 PM THROAT CUTTER 9 Active Insulin [place], Disposable, 31 gauge x 5/16 Needle Use as directed to administer insulin. 100 Each 07/31/2019 5:32 PM THROAT CUTTER 9 Active aspirin (ECOTRIN EC) 81 mg Tablet, Delayed Release (E.C.) Take 1 Tablet (81 mg) by mouth daily. 30 Tablet 3 9 Active clopidogreL (PLAVIX) 75 mg Tablet Take 1 Tablet (75 mg) by mouth daily. 30 Tablet 3 07/31/2019 5:32 PM THROAT CUTTER 9 Active FLUoxetine (PROzac) 20 mg capsule Take 1 Capsule (20 mg) by mouth daily. 30 Capsule 3 07/31/2019 5:32 PM [facility] 9 Active hydrOXYzine HCL (ATARAX) 50 mg tablet Take 1 Tablet (50 mg) by mouth every 6 hours as needed for Anxiety, Insomnia, Nausea/Emesis or pain. 90 Tablet 1 07/31/2019 5:32 PM THROAT CUTTER 9 Active ferrous sulfate 325 mg (65 mg iron) tablet Take 1 Tablet (325 mg) by mouth 2 times daily. 30 Tablet 3 07/31/2019 5:32 PM [facility] 9 Active ascorbic acid, vitamin C, (VITAMIN [...] administer insulin. 100 Each 07/31/2019 5:32 PM [facility] 9 Active Blood-Glucose Meter Use as directed to check blood glucose levels 1 Each 07/31/2019 5:32 PM [facility] 9 Active lancets 30 gauge To be used to check blood glucose levels 100 Each 07/31/2019 5:32 PM [facility] 9 Active carvediloL (COREG) 3.125 mg tablet [...] CDT 0 Active naloxone (NARCAN) 4 mg/spray [place], Non-Aerosol Administer 1 spray (4 mg) in [...] pain 11/16/2019 Protein-calorie malnutrition, moderate 0 [place] (myocardial infarction) 11/11/2019 Acute coronary syndrome with high troponin 11/10 Overview (11/11/2019): Added automatically from request for surgery [id number] History of below-knee amputation of left lower [...] acidosis 11/29/2018 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 Esophagitis, [place] grade C 10/03/2018 Moderate protein-calorie malnutrition 09/30/2018 Overview (11/11/2019): ASPEN Malnutrition Assessment and Findings Subcutaneous Fat Loss Assessment: Moderate fat loss (11/11/19 143) Muscle Wasting Assessment: Severe (11/11/19 143) Edema: Normal contour with a barely perceptible pit (no findings) (11/11/19 1430) Hand Associate Professor Of Counseling: Unable to assess(s/p cath ) (11/11/19 143) [...] 09/2017 H/O supraventricular tachycardia 12/18/2017 Overview (12/18/2017): [place] to be caffeine induced Intractable vomiting with [...] on file Legal Sex Female 3:09 AM THROAT CUTTER Gender Identity Not on file Sexual [...] Screening 06/26/2029 Medical Devices Implanted Type Area Office Rn Device Identifier Shelf Expiration Date Model / Serial / Lot Powerline-02/16 Implanted:Qty : 1 on 03/06/2019 by Ovi Cohen MD Catheter Right: Chest [id number] 03/18/2021 [id number] / / [id number] 18f 30cm Gj Feeding Tube- 9 Implanted:Qty : 1 on 10/15/2018 by Ovi Cohen MD Feeding Device Jejunum 03/19/20200-18-3 0 / / [id number] Hemostatic Surgicel 3x4in 1945 - [id number] Implanted: by Pelon Rose DPM at (Quantity not on file) Hemostatic Left: Foot [employer] 02/15/2023 1945 / / [id number] Explanted Type Area Office Rn Device Identifier Shelf Expiration Date Model / Serial / Lot 16fr 30cm Richy Gastro-Jejuna l Feeding Tube- 9 Implanted:Qty : 1 on 10/08/2018 by Luis Alberto Fields MD Explanted:Qty : 1 on 10/15/2018 by Ovi Cohen MD Feeding Device N/A: Abdomen 01/18/20200-16-3 0 / / [id number] Procedures Procedure Name Priority Date/Time Associated Diagnosis Comments LIPID PANEL Routine 11/11/2019 9:47 AM CDT HEMOGLOBIN A1C Routine 11/11/2019 5:10 AM CDT COLONOSCOPY REPORT 06/26/2019 4: 22 PM THROAT CUTTER from Last 3 Months or Most Recently Relevant to Health Maintenance Results * (ABNORMAL) LIPID PANEL (11/11/2019 9:47 AM CDT) CHOLESTEROL 133 <200 mg/dL 11/12/2019 12:47 AM CDT [facility] [employer] [facility] TRIGLYCERIDE 165(H) <150 mg/dL 11/12/2019 12:47 AM CDT [facility] HDL 45 40 - 59 mg/dL 11/12/2019 12:47 AM CDT [facility] LDL CALCULATED 55 <100 mg/dL 11/12/2019 12:47 AM CDT [facility] NON-HDL CHOLESTEROL 88 <130 mg/dL 11/12/2019 12:47 AM T [facility] Blood Venipuncture / Unknown 11/11/2019 9:47 AM CDT 11/11/2019 9:52 AM CDT Narrative [facility] [employer] [facility] - 11/12/2019 12:47 AM CDT TOTAL CHOLESTEROL [...] ORDERABLES Final R esult Performing Organization Address [facility] Co de Phone Number [facility] CLIA# [id number] [facility] [place] [address] * (ABNORMAL) HEMOGLOBIN A1C (11/11/2019 5:10 AM CDT) HEMOGLOBIN A1C 8.9(H) <=5.6 % 11/11/2019 12:26 PM CDT [facility] EST. AVG GLUCOSE, A1C 209 mg/dL 11/11/2019 12:26 PM CDT [facility] Blood Venipuncture / Unknown 11/11/2019 5:10 AM CDT 11/11/2019 5:12 AM CDT Narrative [facility] - 11/11/2019 12:26 PM CDT HGB A1C INTERPRETATION NORMAL: <5.7% PRE-DIABETES: 5.7 - 6.4% DIABETES: 6.5% OR GREATER Rubia Macias MD CHEMISTRY ORDERABLES Final R esult Performing Organization Address [facility] Co de Phone Number [facility] CLIA# [id number] [address] [place] [address] * COLONOSCOPY REPORT (06/26/2019 4:22 PM THROAT CUTTER) Narrative Procedure Note Adryan Ibarra MD - 06/26/2019 4:21 PM CST GI Patient Name: Cherrie Solomon Procedure Date: [...] answered and informed consent was obtained. - [place] Protocol: - Pre-procedure Verification: Prior to the [...] PM Scope Out: 4:09:59 PM [address] [place] Adryan Ibarra MD GI PROCEDURE ORDERABL ES Final Result from Last 3 Months or Most Recently Relevant to Health Maintenance Insurance RX INFOCROSSING Medicaid [place] Member Subscriber Plan / Payer (Ef fective 2020-Present) Name:Solomon, Cherrie M Relation to Subscriber:Self Name:Cherrie Solomon Payer ID:[id number] Group ID:Not on file Type:Medicaid Address: [address] [id number] [place] Advance Directives For more information, please contact: [phone] * Full Code (Latest Code Status on [...] 7:14 AM 07/31/2019 8:10 PM Care Teams Arc Trimmer Relationship Specialty Start Date End Date Kentrell Herring MD [address] [place] [address] PCP - General Family Practice 09/19/18
--- OUTSIDE RECORDS SUMMARY | 2025-06-11 07:19 | XMS_ITS | Encounter Summary ---
Author Organization [facility] Address [address] [place] [address] Care Team Providers Care Deliverer Pharmacy Name Role Phone Monika Simpson MD Primary Care Provider [phone] Reason for Visit * Auth/Cert (Routine) Specialty Diagnoses / Procedures Referred By Contac t Referred To Contact Perioperative Diagnoses Abscess of bursa of right knee Hx of below knee amputation, right (CMS/HCC) Abscess of bursa of right knee [M71.061] Hx of below knee amputation, right (CMS/HCC) [Z89.511] Procedures IL I&D DEEP ABSC BURSA/HEMATOMA THIGH/KNEE REGION KNEE IRRIGATION AND DEBRIDEMENT OF PRE-PATELLAR BURSA WITH SUTURE REMOVAL RIGHT KNEE 30 MIN SUPINE En Lancaster MD [address] [place] [address] Phone: tel: fax: [facility] Operating [address] [place] [address] Phone: tel: fax: Referral ID Status Reason Start Date Expiration Date Visits Re quested Visits Authorized [id number] 1 1 Encounter Details Date Type Department Care Team (Latest Contact Info) Description 11/30/2024 Hospital Encounter [facility] [address] [place] [address] En Lancaster MD [address] [place] [phone] Abscess of bursa of right knee [...] on file Legal Sex Female 2:06 AM RAIL FILLER Gender Identity Not on file Sexual Orientation Not on file documented as of this encounter OR Notes * Amie-OP - Taylor Joy RN - 11/30/2024 8:47 AM CDT Patient scheduled to arrive at 0630 per chart note and patient notified. When patient did not arrive we spoke with her since we were unable to reach her. He stated she was admitted to [facility]. We made a call to them and they were not aware of her surgery today and stated that a ed case manager would arrive around 0800 and would be getting back to us about surgery. I had not heard any information about this by 0840 I called and spoke with Meredith in case management at [facility] who returned a call to me after speaking with her attending physician who says the patient will not be coming today for surgery and if the surgery is necessary they will call us to reschedule. Azalia Foley and OR notified. documented in this encounter Plan of Treatment Upcoming Encounters Date Type Department Care Team (Late st Contact Info) Description 07/02/2025 11:00 AM RAIL FILLER Office Visit [address] [phone] Monika Simpson MD [address] [phone] documented as of this encounter Visit Diagnoses Not on filedocumented in this encounter Additional Health Concerns Infection Onset Date Last Indicated Resolved Time R/O Meningitis 11/30/2024 11/30/2024 11/30/2024 10 :01 PM CDT Assessment Noted Time PHQ-9 Depression Total Score: 2 03/12/20 8:33 AM CDT documented as of this encounter Care Teams Deliverer Pharmacy Relationship Specialty Start Date End Date Monika Simpson MD [address] [phone] PCP - General Family Practice 03/12/24 documented as of this encounter
--- OUTSIDE RECORDS SUMMARY | 2025-06-11 07:19 | XMS_ITS | Encounter Summary ---
Author Organization [facility] Address [address] [place] [address] Care Team Providers Care Promotions Executive Producer Name Role Phone Kentrell Herring MD Primary Care Provider + Encounter Details Date Type Department Care Team (Late st Contact Info) Description 01/29/2007 Emergency [facility] Emergency Department [address] [place] [address] Baljit Farrell MD NO ADDRESS ON FILE Acute Pyelonephritis without Lesion of Renal Medullary Necrosis (Primary Dx) Social History Tobacco Use Types Packs/Day Years Used Date Smoking Tobacco: Never Assessed Comments Unknown Sex and Gender Information Value Date Recorded Sex Assigned at Not on file Legal Sex Female 3:09 AM [employer] Gender Identity Not on file Sexual Orientation [...] MD URINE ORDERABLES Edited Performing Organization Address [facility] de Phone Number INTERFACE SYSTEM Refer to clinic/hospital department * (ABNORMAL) ACETONE QUALITATIVE, URINE (01/29/2007 7:36 PM CDT) KETONES UA Large(A) Negative INTERFACE SYSTEM 01/29/2007 7:36 PM CDT Baljit Farrell MD URINE ORDERABLES Edited Performing Organization Address City/[facility]/ZIP Co de Phone Number INTERFACE SYSTEM Refer to clinic/hospital department * (ABNORMAL) GLUCOSE URINALYSIS, QUALITATIVE (01/29/2007 7:36 PM CDT) GLUCOSE, URINE 500 mg/dl(A) Negative INTERFACE SYSTEM 01/29/2007 7:36 PM CDT Baljit Farrell MD URINE ORDERABLES Edited Performing Organization Address [facility] Co de Phone Number INTERFACE [...] HEMATOLOGY ORDERABLES Jc marcela Performing Organization Address [facility] de Phone Number INTERFACE SYSTEM Refer to clinic/hospital department * LIPASE (01/29/2007 6:53 PM CDT) LIPASE 24 6 - 51 U/L INTERFACE SYSTEM Comment: As of [address] [facility] has changed testing methods. The new reference range is 6-51 The old referance range was 23-300 01/29/2007 6:53 PM CDT Baljit Farrell MD CHEMISTRY ORDERABLES Edit ed Performing Organization Address [facility] Phone Number INTERFACE SYSTEM Refer to clinic/hospital department * (ABNORMAL) BETA HYDROXYBUTYRATE (01/29/2007 6:53 PM CDT) BETA HYDROXYBUTYRATE 1.22(H) 0.00 - 0.25 mmol/l INTERFACE SYSTEM 01/29/2007 6:53 PM CDT Baljit Farrell MD CHEMISTRY ORDERABLES Edit ed Performing Organization Address [facility] de Phone Number INTERFACE SYSTEM Refer to clinic/hospital department * BETA HCG QUANTITATIVE, BLOOD (01/29/2007 6:53 PM CDT) CHORIONIC GONADOTROPIN, TOTAL <2.0 0.0 - 10.0 mlU/ML INTERFACE SYSTEM Comment: Total HCG levels between 10 mIU/mL and 25 mIU/mL may be indicative of early but need to be correlated with other clinical findings. HCG ranges during normal , as reported by the cowlman, are summarized as follows: Gestational Age Expected [...] CHEMISTRY ORDERABLES Edit ed Performing Organization Address [facility] Co de Phone Number INTERFACE SYSTEM Refer to clinic/hospital department * (ABNORMAL) POC GLUCOSE (01/29/2007 6:49 PM CDT) GLUCOSE POC 273(H) 60 - 100 mg/dL INTERFACE SYSTEM 01/29/2007 6:49 PM CDT us Baljit Farrell MD POINT OF CARE TESTING Jc marcela Performing Organization Address [facility] de Phone Number INTERFACE SYSTEM Refer to clinic/hospital department documented in this encounter Visit Diagnoses Diagnosis Acute pyelonephritis without lesion of renal medullary necrosis- Primary documented in this encounter Care Teams Promotions Executive Producer Relationship Specialty Start Date End Date Kentrell Herring MD [address] [place] [address] PCP - General Family Practice 09/19/18 documented as of this encounter
--- NOTE | 2025-06-11 08:30 | PHA.VACGOAL ---
Vancomycin Goal - Goal Vancomycin Goal:: 15-20 mg/L Vancomycin Indication:: Other - Therapy Day of therpy:: Day []of [] . Actual body weight (kg): 150 lb - Data Labs: WBC 10.61 10^3/uL (3.29-11.43) 06/11/25 03:49 RBC 2.35 10^6/uL (3.85-5.65) L 06/11/25 03:49 Hgb 7.10 g/dL (11.27-16.99) L 06/11/25 03:49 Hct 21.8 % (36-47) L 06/11/25 03:49 MCV 92.8 fl (85-98) 06/11/25 03:49 MCH 30.2 pg (27-33) 06/11/25 03:49 MCHC 32.6 g/dL (30-55) 06/11/25 03:49 RDW 14.0 % (12.1-15.1) 06/11/25 03:49 Sodium 136 mmol/L (136-145) 06/11/25 03:49 Potassium 3.2 mmol/L (3.5-5.1) L 06/11/25 03:49 Chloride 103 mmol/L (98-107) 06/11/25 03:49 Carbon Dioxide 14 mmol/L (22-29) L 06/11/25 03:49 Anion Gap 22.2 (5-19) H 06/11/25 03:49 BUN 77 mg/dL (6-20) H 06/11/25 03:49 Creatinine 4.3 mg/dL (0.5-0.9) H 06/11/25 03:49 GFR Calculation 11.0 mL/min (90-130) L 06/11/25 03:49 Last dialysis session:: N/A Treatment plan:: new consult Regimen:: INITIAL LOADING DOSE OF 1000 MG X 1 GIVEN IN ER. PLAN TO PULSE DOSE DUE TO DECREASED RENAL FUNCTION. Follow up:: TROUGH 06/11
--- NOTE | 2025-06-11 09:06 | PC.PHAR ---
Pt states she hasn't been able to take medications for 3 days, she can't keep anything down.
[2025-06-11] MEDS: cefepime 1,000 mg SDV 1000 MG IVP (11:41)
[2025-06-11] MEDS: potassium chloride premix 100 ML 50 MEQ IV (11:41)
[2025-06-11] MEDS: ondansetron 2 mg/ML SDV 2 mL 4 MG IVP (11:51)
[2025-06-11] MEDS: metoclopramide 5 mg/mL SDV 2 mL IM (12:58)
[2025-06-11 14:54] LABS: Free T4 Free Thyroxine 0.71 ng/dL (0.82-1.77)
[2025-06-11] MEDS: hyDRALAzine 20 mg/mL INJ 1 mL 10 MG IVP (15:11)
[2025-06-11] MEDS: pantoprazole 40 mg SDV IVP (15:11)
--- NOTE | 2025-06-11 15:20 | PC.NURSE ---
Fentanyl patch applied to right upper shoulder secured with tegaderm and tape.
--- NOTE | 2025-06-11 15:23 | PC.NURSE ---
report called to [facility]
--- NOTE | 2025-06-11 15:25 | PC.NURSE ---
all pt belongings sent with pt to room 279 in [facility].
--- NOTE | 2025-06-11 16:09 | PM.CONSULT ---
Providers/Reason For Consult Consulting Physician/Specialty*: [facility]a /Nephrology Reason for Consult*: Acute on CKD Attending Physician: Rhiannon Douglas MD Primary Care Provider: Monika Simpson MD History of Present Illness History of Present Illness Cherrie Solomon is a 45 year old female With multiple medical problems including CKD stage IV, followed by [facility] as outpatient history of right BKA and left AKA presented to the emergency department due to fever, and was noted to have infected right stump with abscesses and concern for osteomyelitis. She is currently on cefepime and IV vancomycin. Her baseline creatinine is in the 4 range, and anticipating to initiate hemodialysis in the near future for outpatient nephrology. Her creatinine is up to 5.2 on presentation down to 4.3 today which is close to her baseline. Also noted to have metabolic acidosis with a bicarbonate level of 14. Currently on room air. Potassium was low at 3.2 which was repleted. Review of Systems Narrative: negative Medications/Allergies Home Medications ?Medication ?Instructions ?Recorded ?Confirmed ?Last Taken ?Type quetiapine 100 mg tablet 100 mg PO BEDTIME 09/13/24 06/11/25 06/07/25 History naloxone 4 mg/actuation nasal See Rx Instructions .Route .COMPLEX 01/06/25 06/11/25 Unknown History spray (Narcan) pregabalin 75 mg capsule (Lyrica) 75 mg PO BID #60 caps 01/30/25 06/11/25 06/07/25 Rx quetiapine 50 mg tablet 50 mg PO QAM 02/05/25 06/11/25 06/07/25 History metoclopramide HCl 10 mg tablet 5 mg PO QID 03/13/25 06/11/25 06/07/25 History atorvastatin 10 mg tablet 10 mg PO DAILY 04/25/25 06/11/25 06/07/25 History cyclobenzaprine 5 mg tablet 5 mg PO TID PRN Spasms 04/25/25 06/11/25 Unknown History clonidine HCl 0.1 mg tablet 0.1 mg PO TID PRN Hypertension #30 04/28/25 06/11/25 Unknown Rx tabs fluoxetine 20 mg capsule 20 mg PO BEDTIME #30 caps 04/28/25 06/11/25 06/07/25 Rx hydralazine 50 mg tablet 50 mg PO TID #90 tabs 04/28/25 06/11/25 06/07/25 Rx nifedipine 30 mg tablet,extended 60 mg (2 x 30 mg) PO QAM #30 tabs 04/28/25 06/11/25 06/07/25 Rx release 24 hr oxycodone-acetaminophen 7.5 mg-325 1 tab PO Q6H PRN Moderate Pain 06/11/25 06/11/25 Unknown History mg tablet (Scale Score 5-6) Allergies Allergy/AdvReac Type Severity Reaction Status Date / Time morphine Allergy ALGY-Difficulty Verified 09/12/24 20:19 Breathing sulfamethoxazole (From Allergy ADR-Vomitin Verified 09/12/24 20:19 Bactrim) g trimethoprim (From Bactrim) Allergy ADR-Vomitin Verified 09/12/24 20:19 g Current Medications Generic Name Dose Route Start Last Admin Trade Name Freq PRN Reason Stop Dose Admin Acetaminophen 650 mg 06/11/25 00:38 06/11/25 05:11 Acetaminophen 325 Mg Tablet PO 650 mg Q6H PRN Administration Mild/Mod Pain Or Temp >/= 101 Calcium Acetate 1,334 mg 06/11/25 08:00 06/11/25 11:40 Calcium Acetate 667 Mg Capsule PO 1,334 mg TIDWM DAWSON Administration Cefepime HCl 1,000 mg 06/11/25 12:00 06/11/25 11:41 Cefepime 1,000 Mg Sdv IVP 1,000 mg Q12H DAWSON Administration Protocol Fentanyl 1 patch 06/11/25 13:15 06/11/25 15:12 Fentanyl 25 Mcg Patch TRANSDERMA 1 patch Q72H DAWSON Administration Heparin Sodium (Porcine) 5,000 unit 06/11/25 10:00 06/11/25 12:15 Heparin 5,000 Unit/Ml Inj 1 Ml SUBCUT Not Given Q12H DAWSON Hydromorphone HCl 0.5 mg 06/11/25 13:04 06/11/25 16:03 Hydromorphone 0.5 Mg/0.5 Ml Inj IVP 0.5 mg Q2H PRN Administration PAIN Ondansetron HCl 4 mg 06/11/25 00:38 06/11/25 11:51 Ondansetron 2 Mg/Ml Sdv 2 Ml IVP 4 mg Q8H PRN Administration vomiting, or N/V if npo Pantoprazole Sodium 40 mg 06/11/25 13:10 06/11/25 15:11 Pantoprazole 40 Mg Sdv IVP 40 mg DAILY DAWSON Administration Tramadol HCl 50 mg 06/11/25 08:26 06/11/25 11:40 Tramadol 50 Mg Tablet PO 50 mg Q6H PRN Administration MODERATE PAIN PFSH Acute PFSH: Medical History Opiate withdrawal Uncontrolled hypertension Dysthymic disorder ALEJANDRO (generalized anxiety disorder) Chronic kidney disease Combative behavior Back pain Acute kidney injury superimposed on CKD Chronic pain Type 1 diabetes mellitus with other skin ulcer Suicide attempt Urinary retention Septic prepatellar bursitis of left knee Hyperglycemia Anemia of chronic disease Insomnia GERD (gastroesophageal reflux disease) ALEJANDRO (generalized anxiety disorder) C. 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 Toe infection PTSD (post-traumatic stress disorder) Gastroparesis (~11/2024) Depression Suicidal ideation Nausea & vomiting Diabetic ophthalmopathy Hypertension Foot osteomyelitis, right Non-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 CKD (chronic kidney disease) stage 2, GFR 60-89 ml/min baseline Cr is around 1.0 Diabetic foot ulcer s/p surgical intervention and eventual amputation Hyperlipidemia Coronary artery disease hx of stenting Diabetic gastroparesis Diabetes mellitus type 1 diagnosed age 15, history of peripheral neuropathy, gastroparesis and nephropathy Surgical History Status post above-knee amputation of left lower extremity Status post below knee amputation of right lower extremity Hx of angioplasty H/O esophagogastroduodenoscopy (12/31/20) Bile reflux gastritis, grade B esophagitis Hx of cholecystectomy History of amputation of right forefoot Below-knee amputation of left lower extremity S/P percutaneous endoscopic gastrostomy (PEG) tube placement H/O exploratory laparotomy x 3 Previous section x 3 S/P coronary artery stent placement x 1 Family History Unknown Diabetes extensive, type II Other Congestive heart failure (CHF) Social History Smoking and tobacco/nicotine status: former use of tobacco/nicotine Quit status (tobacco/nicotine): has quit using Former quit date comment: 15 yrs ago Alcohol intake: former Former alcohol use details: 15 yrs ago Substance/Drug Use: current Substance/Drug use frequency: daily Household members: spouse Marital status: Current occupation: disabled Sexually active: Yes (1, ) Female Reproductive History: Spontaneous abortions: No Vitals/I&O/Wt Last Vital Signs Temp 101.7 F H 06/11/25 15:43 Pulse 110 H 06/11/25 15:43 Resp 17 06/11/25 15:43 BP 158/87 06/11/25 15:43 Pulse Ox 97 06/11/25 15:43 O2 Del Method Room Air 06/11/25 15:43 06/11/25 06/11/25 06/11/25 06:59 14:59 22:59 Intake Total 100 / 100 1000 / 1100 Output Total 1000 / 1000 Balance -1000 / 1250 100 / 100 1000 / 1100 Weight last 48 hrs Weight 68.039 kg Physical Exam Narrative: awake , alert , on room air no JVD PEERLA S1S2 RRR per report Lungs clear abd soft , non tender NEO LE stump- edematous Urinary Catheter Management: Riojas: Cath Placed During This Visit: yes Reason for Continuing Indwelling Catheter: Other Urinary Catheter Date of Insertion: 06/10/25 Urinary Catheter Time of Insertion: 20:20 Data 06/11/25 03:49 06/11/25 03:49 Micro: Microbiology 06/10/25 19:05 Blood Culture - Preliminary Blood Staphylococcus aureus 06/10/25 18:30 Blood Culture - Preliminary Blood Staphylococcus aureus A&P Assessment and plan 1. FIONA (acute kidney injury): Plan: 1. Acute on chronic kidney disease stage IV/V: Followed by [facility] as outpatient. Current FIONA likely from ATN in the setting of sepsis. Creatinine has improved with IV fluids, and is close to baseline currently. Has metabolic acidosis but volume status currently stable and currently on room air - Will switch IV fluids to bicarbonate drip, until bicarb improves. -No acute indication for dialysis currently but may require HD initiation if renal function declines further in the setting of possible requirement for surgery of the stump wounds. - Avoid IV contrast studies 2. Hypokalemia: Repleted 3. Anion gap metabolic acidosis in the setting of possible lactic acidosis in the setting of acute infection and advanced chronic kidney disease, on Bicitra, will add bicarbonate drip x 1 L. 4. Bilateral amputations with stump infection and abscess with concern for osteomyelitis, broad-spectrum antibiotics and patient awaiting transfer for surgery evaluation. 5. Anemia: Hemoglobin 7.1, transfuse as needed, check iron studies, JAN ordered 6. Hypertension, resumed home meds Patient evaluated using audiovisual cart. Time spent 40 minutes PDMP PDMP Reviewed: Not Reviewed Consult Attestations Medical Necessity Statement: per heather Coding Level of Care Code Acute Code for [facility] Fwd Diagnoses FIONA (acute kidney injury) N17.9
--- NOTE | 2025-06-11 16:52 | PM.TDS ---
Transfer Summary Providers Date of Admission: 06/11/25 00:33 Date of Discharge/Transfer: 06/11/25 Attending Provider at Admission: Page Ramirez MD Attending Provider at Transfer: Rhiannon Douglas MD Primary Care Provider: Monika Simpson MD Transfer Plans: Anticipated date of transfer: 06/11/25. Diagnoses at Discharge Discharge Diagnosis 1. Sepsis: 2. Abnormal TSH: 3. Cellulitis and abscess of right le. Cellulitis of left le. Acidosis, lactic: 6. FIONA (acute kidney injury): 7. Acute kidney injury superimposed on CKD: Reason for Visit Reason for Visit NEO leg pain Brief History: As per the patient and the previous notes Cherrie Solomon is a 45 year old female with medical history significant for stage IV kidney disease coming in acute on chronic with complaints of bilateral knee regional pain patient has left AKA and right BKA and the right BKA is cellulitic more so than the left AKA. Patient presents to the emergency room with a fever of 101 ?F patient has a and lives with the family. The patient did not report any chest pain chest pressure or change in her urinary or bowel habits. She has end-stage renal disease with her GFR in the range of 10-15 however she is producing urine. She has been following with the nephrology as per the previous notes and seen by the nephrology at point in the last admission and April as well Hospital Course Hospital Course Patient admitted as a case of possible sepsis with underlying source of infected right stump showing abscess formation and features of osteomyelitis. Right stump showing features of cellulitis. She has been spiking fever and received fluids with broad-spectrum antibiotics cefepime and vancomycin. Blood cultures showing Staph aureus growth and sensitivity awaited. While inpatient since the patient is also having compromised renal functions but no features of clinical features requiring urgent dialysis. The patient was having metabolic acidosis and started on Bicitra tabs. The patient was not tolerating orally therefore also started by bicarb infusion as per nephrology recommendation. The patient also requiring on and off pain management for her multiple comorbidities and further medication reconciliation has been done to control that. Considering patient requiring surgery with I&D and further management of osteomyelitis on the right stump, consulted [facility] and accepted the patient to be managed under their care while hospitalist being the primary team. Patient condition has been discussed at length with the patient/family, I have independently reviewed the chart labs imaging/diagnostics/EKG. the goals of care and code status with the patient/family/NOK/legal paper sales representative, and documented accordingly. The patient/family has been informed about the current condition and further plan of care. Agreed with the plan of care and understood without any language barrier. Every effort was made to ensure accuracy of front office attendant. Any obvious errors or omissions should be clarified with the author of the document. Physical Exam Narrative: General: Alert and oriented, sitting in distress due to pain and having bilateral stump swellings of her knees, patient looks unkept and malnourished HEENT: Normocephalic, atraumatic, grossly unremarkable exam Cardio: Sinus tachycardia, cannot appreciate murmurs due to sinus tachycardia, no JVD Respiratory: normal vascular breathing on auscultation without any wheezes, stridor, rhonchi GI: Abdomen soft, nontender, nondistended, normoactive bowel sounds present all 4 quadrants, Neuro: Gross motor or sensory and cranial nerve examination unremarkable Behavior: Appropriate and cooperative Extremities: Adequate palpable pulses, having bilateral stumps with swellings with tenderness and redness with some areas of healing scabs.. Urinary Catheter Management: [place]: Cath Placed During This Visit: yes Reason for Continuing Indwelling Catheter: Other Urinary Catheter Date of Insertion: 06/10/25 Urinary Catheter Time of Insertion: 20:20 TS Data Studies Completed and Pending Pending at discharge Category Date Time Status BMP [Basic Metabolic Panel] Routine Lab 06/11/25 19:06 Ordered Blood Culture Stat Lab 06/10/25 19:05 Results Vancomycin Trough Timed Lab 06/11/25 20:00 Ordered Completed Studies During Hospitalization Category Date Time Status CT knee LT wo con* [id number] Stat Cat Scan 06/10/25 20:[address] knee RT wo con* [id number] Stat Cat Scan 06/10/25 20:22 Completed XR chest 1V portable [id number] Stat Exams 06/10/25 17:58 Completed XR knee LT 1-2V [id number] Stat Exams 06/10/25 18:08 Completed XR knee RT 1-2V [id number] Stat Exams 06/10/25 18:08 Completed Laboratory Last Values WBC 10.61 10^3/uL (3.29-11.43) 06/11/25 03:49 RBC 2.35 10^6/uL (3.85-5.65) L 06/11/25 03:49 Hgb 7.10 g/dL (11.27-16.99) L 06/11/25 03:49 Hct 21.8 % (36-47) L 06/11/25 03:49 MCV 92.8 fl (85-98) 06/11/25 03:49 MCH 30.2 pg (27-33) 06/11/25 03:49 MCHC 32.6 g/dL (30-55) 06/11/25 03:49 RDW 14.0 % (12.1-15.1) 06/11/25 03:49 Plt Count 216 10^3/cmm (157-399) 06/11/25 03:49 MPV 9.5 fL (7.4-10.4) 06/11/25 03:49 Neut % (Auto) 90.2 % 06/11/25 03:49 Lymph % (Auto) 2.8 % 06/11/25 03:49 [place] % (Auto) 4.4 % 06/11/25 03:49 Eos % (Auto) 0.9 % 06/11/25 03:49 Baso % (Auto) 0.3 % 06/11/25 03:49 Neut # (Auto) 9.56 10^3/uL (1.8-7.7) H 06/11/25 03:49 Lymph # (Auto) 0.3 10^3/uL (0.8-4.8) L 06/11/25 03:49 [place] # (Auto) 0.5 10^3/uL (0.2-0.9) 06/11/25 03:49 Eos # (Auto) 0.1 10^3/uL (0.0-0.8) 06/11/25 03:49 Baso # (Auto) 0.0 10^3/uL (0.0-0.1) 06/11/25 03:49 Nucleated RBC % (auto) 0 % 06/11/25 03:49 Total Counted 100 (0-100) 06/10/25 18:30 Atypical Lymphs % 0.0 % (0-5) 06/10/25 18:30 Absolute Neutrophils 12.0 10^3/cmm (1.4-6.5) H 06/10/25 18:30 Segmented Neutrophils 89 % 06/10/25 18:30 Band Neutrophils 2.0 % 06/10/25 18:30 Absolute Lymphocytes 0.3 10^3/cmm (1.2-3.4) L 06/10/25 18:30 Lymphocytes (Manual) 2 % 06/10/25 18:30 Monocytes (Manual) 4.0 % 06/10/25 18:30 Absolute Monocytes 0.5 10^3/cmm (0.1-0.6) 06/10/25 18:30 Eosinophils (Manual) 0 % 06/10/25 18:30 Absolute Eosinophils 0.0 10^3/cmm (0.0-0.7) 06/10/25 18:30 Basophils (Manual) 0.0 % 06/10/25 18: Absolute Basophils 0.0 10^3/cmm (0.0-0.2) 06/10/25 18:30 Metamyelocytes 1.0 % 06/10/25 18:30 Myelocytes 2.0 % 06/10/25 18:30 Nucleated RBCs # 0.0 /100WBC 06/11/25 03:49 Platelet Estimate Normal (Normal) 06/10/25 18:30 Sodium 136 mmol/L (136-145) 06/11/25 03:49 Potassium 3.2 mmol/L (3.5-5.1) L 06/11/25 03:49 Chloride 103 mmol/L (98-107) 06/11/25 03:49 Carbon Dioxide 14 mmol/L (22-29) L 06/11/25 03:49 Anion Gap 22.2 (5-19) H 06/11/25 03:49 BUN 77 mg/dL (6-20) H 06/11/25 03:49 Creatinine 4.3 mg/dL (0.5-0.9) H 06/11/25 03:49 GFR Calculation 11.0 mL/min (90-130) L 06/11/25 03:49 Glucose 99 mg/dL (65-115) 06/11/25 03:49 POC Glucose 84 mg/dL (70-110) 06/10/25 19:52 Calculated Osmolality 305 mOsm/kg (285-295) H 06/11/25 03:49 Lactic Acid 0.5 mmol/L (0.5-2.2) 06/10/25 18:30 Calcium 8.3 mg/dL (8.5-10.5) L 06/11/25 03:49 Phosphorus 5.0 mg/dL (2.5-4.5) H 06/11/25 03:49 Magnesium 2.1 mg/dL (1.7-2.3) 06/11/25 03:49 Total Bilirubin 0.3 mg/dL (0.15-1.2) 06/11/25 03:49 AST 21 U/L (0-32) 06/11/25 03:49 ALT 22 U/L (0-33) 06/11/25 03:49 Alkaline Phosphatase 217 U/L (35-105) H 06/11/25 03:49 Creatine Kinase 246 U/L (26-192) H 06/10/25 18:30 C-Reactive Protein 448.6 mg/L (0.0-4.9) H 06/10/25 18:30 NT-Pro-B Natriuret Pep 3968 pg/mL (0-125) H 06/10/25 18:30 Total Protein 6.2 g/dL (6.6-8.7) L 06/11/25 03:49 Albumin 2.8 g/dL (3.5-5.2) L 06/11/25 03:49 Globulin 3.4 g/dL (1.3-4.6) 06/11/25 03:49 Lipase 22 U/L (13-60) 06/10/25 18:30 Procalcitonin 2.49 ng/mL (0-0.5) H 06/10/25 18:30 TSH 0.03 uIU/mL (0.27-4.20) L 06/10/25 18:30 Free T4 0.71 ng/dL (0.82-1.77) L 06/11/25 03:49 Free T3 1.1 PG/ML (2.0-4.4) L 06/11/25 03:49 Urine Color Yellow (Yellow) 06/10/25 18:17 Urine Appearance Cloudy (CLEAR) A 06/10/25 18:17 Urine pH 5.0 (5-7) 06/10/25 18:17 Ur Specific [place] 1.016 (1.005-1.030) 06/10/25 18:17 Urine Protein 3+ (Negative) A 06/10/25 18:17 Urine Glucose (UA) Negative (Normal) 06/10/25 18:17 Urine Ketones 1+ (Negative) H 06/10/25 18:17 Urine Blood 1+ (Negative) A 06/10/25 18:17 Urine Nitrate Negative (Negative) 06/10/25 18:17 Urine Bilirubin Negative (Negative) 06/10/25 18:17 Urine Urobilinogen 1.0 mg/dL (Negative) 06/10/25 18:17 Ur Leukocyte Esterase Negative (Negative) 06/10/25 18:17 Urine RBC 0-2 /hpf (0-2) 06/10/25 18:17 Urine WBC 0-5 /hpf (0-5) 06/10/25 18:17 Ur Squamous Epith Cells 0-5 /hpf (0-5) 06/10/25 18:17 Amorphous Sediment 1+ /hpf 06/10/25 18:17 Urine Bacteria None seen /hpf (NONE) 06/10/25 18:17 Hyaline Casts 3.71 /lpf 06/10/25 18:17 U Random Total Protein 433 mg/dL 06/10/25 18:17 Urine Creatinine 78 mg/dL (28-217) 06/10/25 18:17 Urine Opiates Screen Positive ng/mL (Negative) H 06/10/25 18:17 Ur Barbiturates Screen Negative ng/mL (Negative) 06/10/25 18:17 Ur Phencyclidine Scrn Negative ng/mL (Negative) 06/10/25 18:17 Ur Amphetamines Screen Negative ng/mL (Negative) 06/10/25 18:17 U Benzodiazepines Scrn Negative ng/mL (Negative) 06/10/25 18:17 Urine Cocaine Screen Negative ng/mL (Negative) 06/10/25 18:17 U Marijuana (THC) Screen Positive ng/mL (Negative) H 06/10/25 18:17 Ethyl Alcohol < 10 mg/dL (0-10) 06/10/25 18:30 Influenza A (PCR) Negative (Negative) 06/10/25 18:30 Influenza Type B (PCR) Negative (Negative) 06/10/25 18:30 RSV (PCR) Negative (Negative) 06/10/25 18:30 SARS-CoV-2 (PCR) Negative (Negative) 06/10/25 18:30 Radiology Impressions Chest X-Ray 06/10/25 17:58 IMPRESSION: No acute cardiopulmonary findings. Knee X-Ray 06/10/25 18:08 IMPRESSION: No definite soft tissue gas appreciated. Soft tissue edema. Status post [id number] amputation. Knee CT 06/10/25 20:22 IMPRESSION: 1. Status post [id number] amputation. 2. Extensive soft tissue inflammatory changes with suspected infrapatellar collection which may represent an abscess formation, limited evaluation due to lack of intravenous contrast. 3. Faint erosive changes within distal portion of the tibial stone which may represent component of osteomyelitis. Recent Clincial Data Last Vital Signs Temp 101.7 F H 06/11/25 15:43 Pulse 110 H 06/11/25 15:43 Resp 17 06/11/25 15:43 BP 158/87 06/11/25 15:43 Pulse Ox 97 06/11/25 15:43 O2 Del Method Room Air 06/11/25 15:43 Vital Signs Temp Pulse Resp BP Pulse Ox O2 Del Method 06/11/25 15:43 101.7 F H 110 H 17 158/87 97 Room Air 06/11/25 14:00 110 H 06/11/25 12:00 101.1 F H 120 H 20 H 206/93 06/11/25 07:44 98.3 F 104 H 15 153/92 96 Room Air 06/11/25 07:37 Room Air 06/11/25 06:35 102 H 17 168/72 97 Room Air 06/11/25 05:56 95 184/83 99 06/11/25 05:00 Room Air 06/11/25 05:00 98.3 F 95 17 184/83 99 Intake & Output/Weight 06/09/25 06/10/25 06/11/25 06/12/25 06:59 06:59 06:59 06:59 Intake Total 2250 / 2250 1100 / 1100 Output Total 1000 / 1000 Balance 1250 / 1250 1100 / 1100 Weight 68.039 kg Vitals Last Vital Signs Temp 101.7 F H 06/11/25 15:43 Pulse 110 H 06/11/25 15:43 Resp 17 06/11/25 15:43 BP 158/87 06/11/25 15:43 Pulse Ox 97 06/11/25 15:43 O2 Del Method Room Air 06/11/25 15:43 TS Medications Medications Acetaminophen (Acetaminophen 325 Mg Tablet) 650 mg PO Q6H PRN PRN Reason: Mild/Mod Pain Or Temp >/= 101 Last Admin: 06/11/25 05:11 Dose: 650 mg Atorvastatin Calcium (Atorvastatin 10 Mg Tablet) 10 mg PO DAILY [facility] Calcium Acetate (Calcium Acetate 667 Mg Capsule) 1,334 mg PO TIDWM [facility] Last Admin: 06/11/25 11:40 Dose: 1,334 mg Cefepime HCl (Cefepime 1,000 Mg Sdv) 1,000 mg IVP Q12H [facility]; Protocol Last Admin: 06/11/25 11:41 Dose: 1,000 mg Citric Acid/Sodium Citrate (Citric Acid-Sodium Citrate 30 Ml Udc) 30 ml PO TID [facility] Clonidine HCl (Clonidine 0.1 Mg Tablet) 0.1 mg PO TID PRN PRN Reason: HYPERTENSION Cyclobenzaprine HCl (Cyclobenzaprine Hcl 5 Mg Tablet) 5 mg PO TID PRN PRN Reason: SPASMS Fentanyl (Fentanyl 25 Mcg Patch) 1 patch TRANSDERMA Q72H [facility] Last Admin: 06/11/25 15:12 Dose: 1 patch Fluoxetine HCl (Fluoxetine 20 Mg Capsule) 20 mg PO BEDTIME [facility] Heparin Sodium (Porcine) (Heparin 5,000 Unit/Ml Inj 1 Ml) 5,000 unit SUBCUT Q12H [facility] Last Admin: 06/11/25 12:15 Dose: Not Given Hydromorphone HCl (Hydromorphone 0.5 Mg/0.5 Ml Inj) 0.5 mg IVP Q2H PRN PRN Reason: PAIN Last Admin: 06/11/25 16:03 Dose: 0.5 mg Acetaminophen (Acetaminophen) 1,000 mg in 100 mls @ 400 mls/hr IV Q12H PRN PRN Reason: fever Sodium Bicarbonate 150 meq/ (Dextrose) 1,150 mls @ 75 mls/hr IV .[id number] [facility] Albumin Human (Albumin) 25 g in 100 mls @ 60 mls/hr IV ONCE ONE Stop: 06/11/25 17:48 Isosorbide Dinitrate (Isosorbide Dinitrate 20 Mg Tablet) 20 mg PO BID [facility] Lorazepam (Lorazepam 2 Mg/Ml Inj 1 Ml) 2 mg IVP Q4H PRN PRN Reason: ANXIETY Naloxone HCl (Naloxone 0.4 Mg/Ml Sdv) 0.1 mg IVP Q2M PRN PRN Reason: OPIATERV Ondansetron HCl (Ondansetron 2 Mg/Ml Sdv 2 Ml) 4 mg IVP Q8H PRN PRN Reason: vomiting, or N/V if npo Last Admin: 06/11/25 11:51 Dose: 4 mg Oxycodone/Acetaminophen (Oxycodone-Apap 10-325 Mg Tablet) 1 tab PO Q6H PRN PRN Reason: MODERATE PAIN Pantoprazole Sodium (Pantoprazole 40 Mg Sdv) 40 mg IVP DAILY [facility] Last Admin: 06/11/25 15:11 Dose: 40 mg Pregabalin (Pregabalin 75 Mg Capsule) 75 mg PO BID [facility] Quetiapine Fumarate (Quetiapine 100 Mg Tablet) 100 mg PO BEDTIME [facility] Quetiapine Fumarate (Quetiapine 25 Mg Tablet) 50 mg PO QAM [facility] Tramadol HCl (Tramadol 50 Mg Tablet) 50 mg PO Q6H PRN PRN Reason: MODERATE PAIN Last Admin: 06/11/25 11:40 Dose: 50 mg Vancomycin HCl (Vancomycin 1,000 Mg Sdv (Pharmacy Mix)) 0 mg XX PRN PRN PRN Reason: Pharmacy to Dose Discontinued Medications Acetaminophen (Acetaminophen 500 Mg Tablet) 1,000 mg PO ONCE ONE Stop: 06/10/25 22:22 Last Admin: 06/10/25 22:34 Dose: Not Given Cefepime HCl (Cefepime 1,000 Mg Sdv) 1,000 mg IVP ONCE ONE; Protocol Stop: 06/10/25 20:24 Last Admin: 06/10/25 20:41 Dose: 1,000 mg Cefepime HCl (Cefepime 1,000 Mg Sdv) 1,000 mg IVP Q12H [facility]; Protocol Hydralazine HCl (Hydralazine 20 Mg/Ml Inj 1 Ml) 10 mg IVP ONCE ONE Stop: 06/11/25 13:05 Last Admin: 06/11/25 15:11 Dose: 10 mg Hydromorphone HCl (Hydromorphone 0.5 Mg/0.5 Ml Inj) 0.5 mg IVP ONCE ONE Stop: 06/10/25 21:15 Last Admin: 06/10/25 21:25 Dose: 0.5 mg Hydromorphone HCl (Hydromorphone 0.5 Mg/0.5 Ml Inj) 0.5 mg IVP ONCE ONE Stop: 06/10/25 21:50 Last Admin: 06/11/25 01:45 Dose: 0.5 mg Hydromorphone HCl (Hydromorphone 0.5 Mg/0.5 Ml Inj) 0.5 mg IVP Q4H PRN PRN Reason: PAIN Last Admin: 06/11/25 12:59 Dose: 0.5 mg Lactated Ringer's (Lactated Ringers) 1,000 mls @ 999 mls/hr IV .Q1H1M ONE Stop: 06/10/25 18:58 Last Infusion: 06/10/25 20:09 Dose: Infused Sodium Chloride (Sodium Chloride 0.9%) 1,000 mls @ 999 mls/hr IV .Q1H1M ONE Stop: 06/10/25 21:16 Last Infusion: 06/10/25 21:52 Dose: Infused Vancomycin HCl 1,000 mg/ (Sodium Chloride) 250 mls @ 250 mls/hr IV ONCE ONE; Protocol Stop: 06/10/25 21:22 Last Infusion: 06/10/25 21:52 Dose: Infused Sodium Chloride (Sodium Chloride 0.9%) 1,000 mls @ 75 mls/hr IV .[id number] [facility] Last Admin: 06/11/25 16:10 Dose: Not Given Vancomycin HCl / Sodium (Chloride) 250 mls @ 0 mls/hr [id number] PROTOCOL [facility]; Protocol Potassium Chloride (K-Rafi Premix) 100 mls @ 50 mls/hr IV ONCE ONE Stop: 06/11/25 11:59 Last Infusion: 06/11/25 13:43 Dose: Infused Ketorolac Tromethamine (Ketorolac 30 Mg/Ml Inj) 10 mg IVP ONCE ONE Stop: 06/10/25 19:45 Last Admin: 06/10/25 19:49 Dose: 10 mg Metoclopramide HCl (Metoclopramide 5 Mg/Ml Sdv 2 Ml) 5 mg IM ONCE ONE Stop: 06/11/25 12:17 Last Admin: 06/11/25 12:58 Dose: 5 mg Ondansetron HCl (Ondansetron 2 Mg/Ml Sdv 2 Ml) 4 mg IVP ONCE ONE Stop: 06/10/25 18:11 Last Admin: 06/10/25 19:09 Dose: 4 mg Ondansetron HCl (Ondansetron 2 Mg/Ml Sdv 2 Ml) 4 mg IVP ONCE ONE Stop: 06/10/25 21:50 Last Admin: 06/10/25 22:31 Dose: 4 mg Orphenadrine Citrate (Orphenadrine 30 Mg/Ml Inj 2 Ml) 30 mg IVP ONCE ONE Stop: 06/10/25 19:45 Last Admin: 06/10/25 19:50 Dose: 30 mg Pantoprazole Sodium (Pantoprazole Dr 40 Mg Tablet) 40 mg PO DAILY [facility] Last Admin: 06/11/25 05:11 Dose: 40 mg Potassium Chloride (Potassium Chloride Er 20 Meq Tablet) 40 meq PO ONCE ONE Stop: 06/11/25 08:13 Last Admin: 06/11/25 09:32 Dose: Not Given Sodium Bicarbonate (Sodium Bicarbonate 650 Mg Tablet) 650 mg PO TID [facility] Last Admin: 06/11/25 14:31 Dose: Not Given Tramadol HCl (Tramadol 50 Mg Tablet) 25 mg PO ONCE ONE Stop: 06/11/25 08:24 Last Admin: 06/11/25 09:02 Dose: 25 mg Allergies morphine Allergy (Verified 09/12/24 20:19) ALGY-Difficulty Breathing sulfamethoxazole (From Bactrim) Allergy (Verified 09/12/24 20:19) ADR-Vomiting trimethoprim (From Bactrim) Allergy (Verified 09/12/24 20:19) ADR-Vomiting Home Medications quetiapine 100 mg tablet 100 mg PO BEDTIME 09/13/24 [History Confirmed 06/11/25] naloxone 4 mg/actuation nasal spray (Narcan) See Rx Instructions .Route .COMPLEX 01/06/25 [History Confirmed 06/11/25] pregabalin 75 mg capsule (Lyrica) 75 mg PO BID #60 caps 01/30/25 [Rx Confirmed 06/11/25] quetiapine 50 mg tablet 50 mg PO QAM 02/05/25 [History Confirmed 06/11/25] metoclopramide HCl 10 mg tablet 5 mg PO QID 03/13/25 [History Confirmed 06/11/25] atorvastatin 10 mg tablet 10 mg PO DAILY 04/25/25 [History Confirmed 06/11/25] cyclobenzaprine 5 mg tablet 5 mg PO TID PRN Spasms 04/25/25 [History Confirmed 06/11/25] clonidine HCl 0.1 mg tablet 0.1 mg PO TID PRN Hypertension #30 tabs 04/28/25 [Rx Confirmed 06/11/25] fluoxetine 20 mg capsule 20 mg PO BEDTIME #30 caps 04/28/25 [Rx Confirmed 06/11/25] hydralazine 50 mg tablet 50 mg PO TID #90 tabs 04/28/25 [Rx Confirmed 06/11/25] nifedipine 30 mg tablet,extended release 24 hr 60 mg (2 x 30 mg) PO QAM #30 tabs 04/28/25 [Rx Confirmed 06/11/25] oxycodone-acetaminophen 7.5 mg-325 mg tablet 1 tab PO Q6H PRN Moderate Pain (Scale Score 5-6) 06/11/25 [History Confirmed 06/11/25] Discharge Plan Discharge Patient Disposition: Home Condition: Stable Prescriptions: No Action quetiapine 100 mg tablet 100 mg PO BEDTIME naloxone [Narcan] 4 mg/actuation spray,non-aerosol See Rx Instructions .ROUTE .COMPLEX Rx Instructions: EMERGENCY USE ONLY, ADMINISTER A SINGLE SPRAY IN ONE NOSTRIL UPON SIGNS OF OPIOID OVERDOSE. MAY REPEAT IN ALTERNATING NOSTRILS EVERY 2 TO 3 MINUTES UNTIL RESPONSIVE OR EMS ARRIVES. quetiapine 50 mg tablet 50 mg PO QAM pregabalin [Lyrica] 75 mg capsule 75 mg PO BID Qty: 60 0RF metoclopramide HCl 10 mg tablet 5 mg PO QID atorvastatin 10 mg tablet 10 mg PO DAILY cyclobenzaprine 5 mg tablet 5 mg PO TID PRN (Reason: Spasms) nifedipine 30 mg Tablet Extended Release 24hr 60 mg PO QAM Qty: 30 0RF clonidine HCl 0.1 mg Tablet 0.1 mg PO TID PRN (Reason: Hypertension) Qty: 30 0RF hydralazine 50 mg Tablet 50 mg PO TID Qty: 90 0RF fluoxetine 20 mg Capsule 20 mg PO BEDTIME Qty: 30 0RF oxycodone-acetaminophen 7.5-325 mg tablet 1 tab PO Q6H PRN (Reason: Moderate Pain (Scale Score 5-6)) Referrals: Monika Simpson MD [Primary Care Provider, [facility]] Discharge Diet: Diabetic Discharge Activity: Resume usual activity Patient Instructions: Opioid Safety, Patient Portal & Karina Instructions Transfer Attestations Time Spent in Transfer Care: greater than 30 min Specific Discharge Activities: educating patient, educating and/or supporting family/caregiver, discussing with pcp/other providers, discussing with major case detective/social workers/dc planners, documenting/other paperwork and evaluating patient/reviewing data Status at Transfer: Cognitive status at transfer: cognitively intact; Behavioral status at transfer: cooperative; Functional status at transfer: other assisted ambulation; Overall status at transfer: patient is not back to baseline Quality Metrics Clinical Quality Measures [ No reported AMI, CVA or VTE this stay] Coding Level of Care Code 64710 Diagnoses Sepsis A41.9; R65.20; N17.9 Acute renal failure type: unspecified Sepsis acute organ dysfunction status: with acute organ dysfunction Sepsis type: sepsis due to unspecified organism Severe sepsis acute organ dysfunction type: acute renal failure Severe sepsis shock status: without septic shock Abnormal TSH R79.89 Cellulitis and abscess of right leg L03.115; L02.415 Cellulitis of left leg L03.116 Acidosis, lactic E87.20 FIONA (acute kidney injury) N17.9 Acute kidney injury superimposed on CKD N17.9; N18.9
[2025-06-11] MEDS: albumin 25 G/100 ML BAG 60 G IV (17:33)
[2025-06-11] MEDS: ATORVASTATIN 10 MG TABLET PO (17:35)
[2025-06-11] MEDS: citric acid-sodium citrate 30 mL UDC PO (20:13)
[2025-06-11 20:35] LABS: Anion Gap 19.3 (5-19); Blood Urea Nitrogen 70 mg/dL (6-20); Calcium 8.0 mg/dL (8.5-10.5); Carbon Dioxide 14 mmol/L (22-29); Chloride 99 mmol/L (98-107); Creatinine Clr Calc Pharmacy 17.7860; Glucose 133 mg/dL (65-115); Osmolality Calculated 290 mOsm/kg (285-295); Potassium 3.3 mmol/L (3.5-5.1); Sodium 129 mmol/L (136-145)
== END 2025-06-11 20:58 | disposition home or self-care (01) | DRG 720 ==
LOC: ER 22:33 → ER IP 22:58 → CSU 06-11 05:58 → ER IP 06-11 07:13 → CSU 06-11 12:33 → MEDSURG 06-11 15:35
PROVIDERS: Hospitalist; Admitting Provider Internal Medicine; Emergency Provider Physician Assistant; PCP Family Medicine; Visit Provider Student in an Organized Health Care Education/Training Program
DX: A41.9 Sepsis, unspecified organism (principal); L03.116 Cellulitis of left lower limb; L03.115 Cellulitis of right lower limb; T87.43 Infection of amputation stump, right lower extremity; T87.44 Infection of amputation stump, left lower extremity; L02.415 Cutaneous abscess of right lower limb; E87.20 Acidosis, unspecified; N17.9 Acute kidney failure, unspecified; N18.4 Chronic kidney disease, stage 4 (severe); M86.18 Other acute osteomyelitis, other site; R65.20 Severe sepsis without septic shock; B95.61 Methicillin susceptible Staphylococcus aureus infection as the cause of diseases classified elsewhere; Y83.9 Surgical procedure, unspecified as the cause of abnormal reaction of the patient, or of later complication, without mention of misadventure at the time of the procedure; E11.22 Type 2 diabetes mellitus with diabetic chronic kidney disease; I12.9 Hypertensive chronic kidney disease with stage 1 through stage 4 chronic kidney disease, or unspecified chronic kidney disease; E11.40 Type 2 diabetes mellitus with diabetic neuropathy, unspecified; Z89.612 Acquired absence of left leg above knee; Z89.511 Acquired absence of right leg below knee; Z88.2 Allergy status to sulfonamides; Z95.5 Presence of coronary angioplasty implant and graft; G89.4 Chronic pain syndrome; D63.1 Anemia in chronic kidney disease; Z87.891 Personal history of nicotine dependence; E87.6 Hypokalemia; Z83.3 Family history of diabetes mellitus; F41.1 Generalized anxiety disorder; F32.A Depression, unspecified; R78.89 Finding of other specified substances, not normally found in blood
CPT/HCPCS: 36415; 36416; 51702; 51798; 71045; 73560; 73700; 80048; 80053; 80202; 80306; 80307; 81001; 82550; 82570; 82962; 83605; 83690; 83735; 83880; 84100; 84145; 84156; 84439; 84443; 84481; 85007; 85025; 86140; 87040; 87077; 87150; 87186; 87205; 87637; 93005; 96365; 96372; 96375; 96376; 99285; J0360; J0692; J1171; J1644; J1885; J2360; J2405; J2470; J2765; J3373; J3480; J7030; J7050; J7070; J7120; J9999; P9046